=== PATIENT | male | born 1965 | race Caucasian/White ===

== ENCOUNTER 2018-06-11 13:41 | Outpatient (REF) | payer MEDICARE, SELFPAY ==
[2018-06-11 18:30] LABS: HCT 45.6 % (40.0-50.0); HGB 15.5 g/dL (13.5-17.5)
[2018-06-11 18:42] LABS: Hemoglobin A1C 6.7 % (4.5-6.2)
[2018-06-11 19:19] LABS: ALT 16 U/L (12-78); AST 16 U/L (15-37); Albumin 3.7 g/dL (3.4-5.0); Alkaline Phosphatase 62 U/L (46-116); Anion Gap 10.1 mmol/L (3-11); BUN 15 mg/dL (7-18); Bilirubin, Total 0.2 mg/dL (0.2-1.0); CO2 25.9 mmol/L (21.0-32.0); CREATININE 1.01 mg/dL (0.70-1.30); Calcium 9.5 mg/dL (8.5-10.1); Chloride 107 mmol/L (98-107); Cholesterol 148 mg/dL (50-200); Glucose 131 mg/dL (70-100); HDL Cholesterol 40 mg/dL (40-60); LDL CHOLESTEROL 83 mg/dL (<100); Potassium 4.2 mmol/L (3.5-5.1); Sodium 143 mmol/L (136-145); Total Protein 6.9 g/dL (6.4-8.2); Triglyceride 243 mg/dL (30-150)
== END 2018-06-11 14:01 ==
LOC: NCHCN 13:41
PROVIDERS: PCP Family Medicine; Visit Provider Family Medicine
DX: E11.9 Type 2 diabetes mellitus without complications (principal); I25.10 Atherosclerotic heart disease of native coronary artery without angina pectoris; E78.5 Hyperlipidemia, unspecified; I10 Essential (primary) hypertension
CPT/HCPCS: 80053; 80061; 83721; 83036; 85014; 85018

== ENCOUNTER 2018-09-10 16:53 | Outpatient (REF) | payer MEDICARE, SELFPAY ==
[2018-09-10 19:56] LABS: Bacteria Negative HPF (Negative); C & S Indicated? C&S Done As Ordered; Casts Negative LPF (Negative); Crystals Many Amorphous HPF (Negative); Epithelial Cells Negative HPF (Negative); Mucus Negative (Negative); Other Cells Negative (Negative); RBC Negative (0-2); WBC Negative HPF (0-5)
== END 2018-09-10 17:13 ==
LOC: NCHCN 16:53
PROVIDERS: PCP Family Medicine; Visit Provider Family Medicine
DX: R31.9 Hematuria, unspecified (principal)
CPT/HCPCS: 81015; 87086

== ENCOUNTER 2019-03-13 16:22 | Emergency (ER) | payer MEDICARE, MEDICAID, SELFPAY ==
[2019-03-13] VITALS (27 sets, daily range): BP systolic 84–117; BP diastolic 58–74; PULSE 61–83; RESP 8–18; TEMP 36.7–36.8; O2SAT 96–98
[2019-03-13 16:47] LABS: Abs Immature Grans 0.03 k/cumm (0.0-0.09); Absolute Basophil Count 0.05 k/cumm (0.0-0.2); Absolute Eosinophil Count 0.37 k/cumm (0.0-0.7); Absolute Lymphocyte Count 3.75 k/cumm (1.2-3.4); Absolute Monocyte Count 0.66 k/cumm (0.11-0.7); Absolute Neutrophil Count 4.83 k/cumm (1.2-6.7); Basophils % 0.5; Eosinophils % 3.8; HCT 44.2 % (40.0-50.0); HGB 15.7 g/dL (13.5-17.5); Immature Grans % 0.3; Lymphocytes % 38.7; Mean Corp. HGB Concentration 35.5 g/dL (32.0-36.0); Mean Corpuscular Hemoglobin 30.1 pg (27.0-33.0); Mean Corpuscular Volume 84.7 fL (80-95); Mean Platelet Volume 10.5 fL (8.0-11.0); Monocytes % 6.8; Neutrophils % 49.9; Platelet Count 214 x1000/uL (130-400); RBC 5.22 m/cumm (4.50-6.00); RBC Distribution Width 13.1 % (11.8-14.1); White Blood Cell Count 9.69 k/cumm (4.4-10.8)
--- NOTE | 2019-03-13 16:56 | ED.GENADUL_ITS ---
Discharge Plan Disposition Patient Disposition: [facility] Condition: Serious Discharge Details Chief Complaint: Chest Pain Clinical Impression: Unstable angina Primary Care Provider: Coni Lim V ED Provider: Shania Jaeger Home Meds and New Rx's Prescriptions: No Action hydroxyzine pamoate 50 MG capsule 50 mg PO Q4H PRN Qty: 90 RF: 6 prochlorperazine maleate 10 MG tablet 10 mg PO Q8H PRN Qty: 90 RF: 5 topiramate [Topamax] 50 MG tablet 50 mg PO HS Qty: 30 RF: 3 nitroglycerin [Nitrostat] 0.4 MG tablet, sublingual 0.4 mg Sublingual PRN PRNRF: 0 cyclobenzaprine 10 MG tablet 10 mg PO HS RF: 0 metoprolol tartrate 50 MG tablet 100 mg PO BID RF: 0 furosemide [Lasix] 20 MG tablet 20 mg PO DAILY PRNRF: 0 gabapentin 100 MG capsule 600 mg PO TID RF: 0 levalbuterol tartrate [Xopenex HFA] 1 PUFF HFA aerosol inhaler 2 puff Inhalation BID RF: 0 rosuvastatin [Crestor] 10 MG tablet 20 mg PO DAILY RF: 0 bupropion HCl 150 MG tablet extended release 12 hr 150 mg PO BID RF: 0 pantoprazole 40 MG tablet,delayed release (DR/EC) 40 mg PO BID RF: 0 losartan 25 MG tablet 25 mg PO DAILY RF: 0 colchicine 0.6 MG tablet 0.6 mg PO DAILY RF: 0 ranolazine [Ranexa] 500 MG tablet extended release 12 hr 500 mg PO BID Qty: 60 RF: 0 aspirin 325 MG tablet,delayed release (DR/EC) 325 mg PO DAILY RF: 0 duloxetine [Cymbalta] 60 MG capsule,delayed release(DR/EC) 60 mg PO BID RF: 0 hydrocodone-acetaminophen [Vicodin] 1 EACH tablet 1 tab PO BID RF: 0 oxycodone 10 MG tablet 10 mg PO .Q4-6 PRN RF: 0 Discharge Data Discharge Date/Time-TO BE ENTERED AT DEPARTURE: 03/13/19 23:29 Medical Decision Making <LENORE Murry - Last Filed: 03/14/19 23:50> Patient is a 53-year-old male presents today with chief complaint of chest pain. He reports for the past week he has had intermittent chest pain, only with exertion, and associated dyspnea. States that prior to today, the pain is more of a pressure. However, he reports that now he presents with severe crushing chest pain. Indicates his central chest and substernal area of the area of maximal discomfort. States that pain began today with minimal movement, when going to a standing position from the chair. Reports that with his increased dyspnea and his chest discomfort associate with exertion, he is been fairly sedentary recently. States that he had 10 on 10 crushing and stabbing chest pain for which he ended up taking 2 sublingual nitro. He reports that he did have good resolution of his symptoms with this medication. Patient called for EMS who brought him in here. He is currently feeling quite well endorsing only mild chest discomfort. He is not currently feeling short of breath. Patient does have cardiac history and reports he is a total of 5 stents which are completing the different procedures. Most recent of which he believes was completed [facility] approximately 2 years ago. Patient has history of CAD, unstable angina tobacco abuse, TIA, obesity, type 2 diabetes, hypertension, hyperlipide lazara, depression, fibromyalgia, GERD. Patient chewed full dose ASA prior to arrival. The patient's history, I am primarily concerned for ACS. Also plan to obtain EKG, serial troponins, cxr. Patient is noted to be hypotensive at 84/63 likely associate with nitroglycerin, will give fluid bolus and reassess. As he is mentating well and otherwise feeling well at this point, do not feel need to st art pressors. We will continue to monitor the patient closely. EKG reviewed by Dr. Brown with no acute abnormalities to suggest acute ischemic injury. Patient has been in the department for 1 hour, he continues to be hypotensive but the systolic is now up to 97. Discussed the case with Dr. Brown. He continues to receive an IV bolus. His pain continues to be improved from what he experienced initially. I will not give further nitro at this time. We are hesitant to give morphine with his hypertension. I did discuss the use of pressors as the patient is mentating well, does not appear to be in shock, will hold off at this time. Labs are just back and reassuring with no abnormalities in his troponin. 1850: Patient reports that his chest pain has returned. Is not severe as initially noted has been coming back. Will repeat an EKG and give morphine. Again, I remain hesitant to give nitroglycerin secondary to his blood pressure. His blood pressures currently 111/75. Glucose is noted to be 140 which is not atypical for the patient. He has no leukocytosis, no elevation of troponin. anion gap 12.7. EKG was repeated, again no ischemic changes. Patient reports that his pain is a 4 out of 10 and is still only minimal compared to what he was experiencing earlier. We will give 2 mg of morohine. Patient feeling much improved after IV morphine. He is resting comfortably. Plan for 4-hour troponin and 4-hour EKG. Repeat troponin remains normal at <0.05. Remain cnocerned for unstable angina and will consult with [facility] cardiology. Consulted with Dr. Lezama with cardiology. Agrees history concerning for unstable angina. ADvised heparin, plavix and transfer to their facility for cardiac catheterization. Discussed this plan with the patient who is in agreement. <Ortiz Vazquez DO - Last Filed: 03/13/19 20:43> EKG 20: 40 Rate 65, intervals normal, sinus rhythm, no significant ST elevations or depressions, significant T wave inversions. Single small nonspecific questionable Q waves in lead III. Unchanged from prior EKGs. HPI <LENORE Murry - Last Filed: 03/14/19 23:50> General Mode of arrival: ambulatory . Date/Time Provider Initiated Documentation: 03/13/19 16:56 . Limitations to Documentation: no limitations . Information obtained by: patient . History of Present Illness 53 year old M presents to the emergency department with the chief complaint of chest pain, described as severe and similar to prior episodes, with intensity rated at 10. Quality is described as crushing, and is localized to the chest. Patient neck (left side of neck and jaw) and extremity (left shoulder). Patient started experiencing this minute(s) and it has been now resolved (improved after 2 nitro). Medication improves symptom(s), Movement worsens symptoms . Patient notes chest pain and nausea/vomiting (nausea, no vomiting); denies cough, diaphoresis, fever/chills, headaches, loss of appetite, rash, shortness of breath, syncope and weakness. Patient did receive the following treatments prior to arrival, Aspirin and other (2 sublingual nitro) Related Data Home Medications Medication Instructions Recorded Confirmed cyclobenzaprine 10 mg PO HS 12/31/12 03/13/19 furosemide [Lasix] 20 mg PO DAILY PRN 12/31/12 03/13/19 gabapentin 600 mg PO TID 12/31/12 03/13/19 levalbuterol tartrate [Xopenex HFA] 2 puff INHALATION BID 12/31/12 03/13/19 metoprolol tartrate 100 mg PO BID 12/31/12 03/13/19 nitroglycerin [Nitrostat] 0.4 mg SUBLINGUAL PRN PRN 12/31/12 03/13/19 rosuvastatin [Crestor] 20 mg PO DAILY 12/31/12 03/13/19 bupropion HCl 150 mg PO BID 02/14/14 03/13/19 pantoprazole 40 mg PO BID 02/14/14 03/13/19 losartan 25 mg PO DAILY 02/21/14 03/13/19 colchicine 0.6 mg PO DAILY 10/05/14 03/13/19 ranolazine [Ranexa] 500 mg PO BID #60 tab.er.12h 10/06/14 03/13/19 aspirin 325 mg PO DAILY 11/27/14 03/13/19 hydroxyzine pamoate 50 mg PO Q4H PRN #90 tab-cap 03/21/15 03/13/19 prochlorperazine maleate 10 mg PO Q8H PRN #90 tab-cap 03/21/15 03/13/19 topiramate [Topamax] 50 mg PO HS #30 tab 03/21/15 03/13/19 duloxetine [Cymbalta] 60 mg PO BID 08/16/15 03/13/19 hydrocodone-acetaminophen [Vicodin 1 tab PO BID 08/16/15 03/13/19 5-300 mg Tablet] oxycodone 10 mg PO .Q4-6 PRN 08/16/15 03/13/19 Previous Rx's Medication Instructions Recorded ranolazine [Ranexa] 500 mg PO BID #60 tab.er.12h 10/06/14 Allergies Allergy/AdvReac Type Severity Reaction Status Date / Time thallium-201 [Thallium-201] Allergy Severe Pt went to Unverified 03/13/19 16:31 [facility] due to med lisinopril AdvReac cough Unverified 03/13/19 16:31 Paper tape Allergy Intermediate rash Uncoded 03/13/19 16:31 General Stated Complaint: Chest Pain NANCY: 3 Review of Systems <LENORE Murry - Last Filed: 03/14/19 23:50> Constitutional Reports as per HPI, Denies chills, Denies fever(s), Denies headache(s), Denies lethargy and Denies poor appetite Eyes Denies change in vision ENT Denies dizziness and Denies headache(s) Cardiovascular Reports as per HPI, Denies dyspnea and Denies dyspnea on exertion Respiratory Reports as per HPI, Denies chest congestion, Denies cough, Denies pain on inspiration, Denies pain with cough, Denies dyspnea, Denies dyspnea on exertion and Denies wheezing Gastrointestinal Reports as per HPI, Denies abdominal pain, Denies diarrhea, Denies nausea and Denies vomiting Genitourinary Denies system reviewed and no additional complaints, except as docu (denies change in urinary habits) Musculoskeletal Reports as per HPI and Denies back pain Integumentary/Breasts Reports as per HPI and Denies rash Neurologic Reports as per HPI, Denies dizziness and Denies headache(s) Allergic/Immunologic Denies wheezing PFSH <LENORE Murry - Last Filed: 03/14/19 23:50> Medical History Coronary artery disease (Chronic) Depression (Chronic) Diabetes (Chronic) Social History Smoking/Tobacco Use Status: Current every day Alcohol Intake: never Drug use: Daily Substance use type: marijuana Do you feel safe at home: Yes Do you feel safe in your relationship?: Yes Exam <LENORE Murry - Last Filed: 03/14/19 23:50> Const General: cooperative, healthy appearing, comfortable, no acute distress and well developed Nutritional Appearance: average body habitus and well nourished Orientation: alert, awake and oriented x3 HENMT Head: normal to inspection Ears: hearing grossly normal bilaterally Mouth: moist mucous membranes Chest Chest: normal inspection of the chest, normal palpation of entire chest wall and no crepitus Resp Effort & Inspection: normal respiratory effort, able to speak in complete sentences and no respiratory distress Auscultation: clear to auscultation bilaterally, no rales, no rhonchi and no wheezes Cardio Rate: regular rate Rhythm: regular rhythm Heart Sounds: S1 normal and S2 normal GI Inspection: normal to inspection, no edema and non-distended Palpation: soft, no hepatosplenomegaly, not firm, no guarding, not rigid and nontender Auscultation: normal bowel sounds Back/Spine/Pelvis Thoracic/Lumbar Spine: thoracic and lumbar spine normal to inspection Skin General skin exam: no rashes or lesions noted Trauma: no lacerations or abrasions Neuro General: alert, awake and oriented x3 Cognition: normal cognition Speech: speech normal Gait: normal gait Extrem General: normal to inspection, normal capillary refill, no pedal edema, no calf tenderness, normal gait and other (2+ distal pulses in upper and lower extre mities, equal bilaterally. ) Psych Appearance: grossly normal and well kempt Mental Status: mental status grossly normal Speech and Movement: speech and movement normal Course <LENORE Murry - Last Filed: 03/14/19 23:50> Vital Signs Temperature 36.8 C 03/13/19 16:26 Pulse 80 03/13/19 16:26 Respiratory Rate 16 03/13/19 16:26 Blood Pressure 84/63 L 03/13/19 16:26 Pulse Oximetry 98 03/13/19 16:26 Temperature 36.8 C 03/13/19 16:26 Temperature Source Skin 03/13/19 16:26 Pulse 80 03/13/19 16:26 Respiratory Rate 16 03/13/19 16:35 Respiratory Effort Non-Labored 03/13/19 16:35 Blood Pressure 84/63 L 03/13/19 16:26 Pulse Oximetry 98 03/13/19 16:26 Pain Level 4 03/13/19 16:35 Lab/Test Results Lab/Test Results: Laboratory Tests Range/Units 03/13/19 16:30 WBC (4.4-10.8) k/cumm 9.69 RBC (4.50-6.00) m/cumm 5.22 Hgb (13.5-17.5) g/dL 15.7 Hct (40.0-50.0) % 44.2 MCV (80-95) fL 84.7 MCH (27.0-33.0) pg 30.1 MCHC (32.0-36.0) g/dL 35.5 RDW (11.8-14.1) % 13.1 Plt Count (130-400) x1000/uL 214 MPV (8.0-11.0) fL 10.5 Immature Gran % 0.3 Neutrophils % 49.9 Lymphocytes % 38.7 Monocytes % 6.8 Eosinophils % 3.8 Basophils % 0.5 Absolute Neutrophils (1.2-6.7) k/cumm 4.83 Absolute Lymphocytes (1.2-3.4) k/cumm 3.75 H Absolute Monocytes (0.11-0.7) k/cumm 0.66 Absolute Eosinophils (0.0-0.7) k/cumm 0.37 Absolute Basophils (0.0-0.2) k/cumm 0.05
[2019-03-13 17:06] LABS: ALT 16 U/L (12-78); AST 6 U/L (15-37); Albumin 3.3 g/dL (3.4-5.0); Alkaline Phosphatase 62 U/L (46-116); Anion Gap 12.7 mmol/L (3-11); BUN 12 mg/dL (7-18); Bilirubin, Total 0.2 mg/dL (0.2-1.0); CO2 21.3 mmol/L (21.0-32.0); CREATININE 1.03 mg/dL (0.70-1.30); Calcium 8.6 mg/dL (8.5-10.1); Chloride 105 mmol/L (98-107); Glucose 140 mg/dL (70-100); Magnesium 1.9 mg/dL (1.8-2.4); Potassium 3.5 mmol/L (3.5-5.1); Sodium 139 mmol/L (136-145); Total Protein 6.4 g/dL (6.4-8.2)
[2019-03-13 17:07] LABS: Troponin I < 0.05 ng/mL (0.00-0.06)
[2019-03-13 17:09] LABS: Prothrombin Time 9.9 sec (9.3-11.0)
[2019-03-13 18:33] LABS: Bilirubin Negative (Negative); Blood Negative (Negative); Clarity Clear (Clear); Glucose Negative (Negative); Ketones Negative (Negative); Leukocyte Esterase Negative (Negative); Nitrite Negative (Negative); Urobilinogen 0.2 EU/dL (Up TO 0.2)
--- NOTE | 2019-03-13 18:42 | ED.GENADUL_ITS ---
Discharge Plan Discharge Details Chief Complaint: Chest Pain Primary Care Provider: Coni Lim V ED Provider: Shania Jaeger Home Meds and New Rx's Prescriptions: No Action hydroxyzine pamoate 50 MG capsule 50 mg PO Q4H PRN Qty: 90 RF: 6 prochlorperazine maleate 10 MG tablet 10 mg PO Q8H PRN Qty: 90 RF: 5 topiramate [Topamax] 50 MG tablet 50 mg PO HS Qty: 30 RF: 3 nitroglycerin [Nitrostat] 0.4 MG tablet, sublingual 0.4 mg Sublingual PRN PRNRF: 0 cyclobenzaprine 10 MG tablet 10 mg PO HS RF: 0 metoprolol tartrate 50 MG tablet 100 mg PO BID RF: 0 furosemide [Lasix] 20 MG tablet 20 mg PO DAILY PRNRF: 0 gabapentin 100 MG capsule 600 mg PO TID RF: 0 levalbuterol tartrate [Xopenex HFA] 1 PUFF HFA aerosol inhaler 2 puff Inhalation BID RF: 0 rosuvastatin [Crestor] 10 MG tablet 20 mg PO DAILY RF: 0 bupropion HCl 150 MG tablet extended release 12 hr 150 mg PO BID RF: 0 pantoprazole 40 MG tablet,delayed release (DR/EC) 40 mg PO BID RF: 0 losartan 25 MG tablet 25 mg PO DAILY RF: 0 colchicine 0.6 MG tablet 0.6 mg PO DAILY RF: 0 ranolazine [Ranexa] 500 MG tablet extended release 12 hr 500 mg PO BID Qty: 60 RF: 0 aspirin 325 MG tablet,delayed release (DR/EC) 325 mg PO DAILY RF: 0 duloxetine [Cymbalta] 60 MG capsule,delayed release(DR/EC) 60 mg PO BID RF: 0 hydrocodone-acetaminophen [Vicodin] 1 EACH tablet 1 tab PO BID RF: 0 oxycodone 10 MG tablet 10 mg PO .Q4-6 PRN RF: 0 Medical Decision Making ECG Data Attestation: I personally reviewed and interpreted this ECG (s) as follows: (Sinus rhythm rate of 77 normal axis normal intervals no ectopy no STEMI) HPI General Mode of arrival: ambulatory . Date/Time Provider Initiated Documentation: 03/13/19 16:56 . Limitations to Documentation: no limitations . Information obtained by: patient . History of Present Illness with intensity rated at 10. Quality is described as crushing, and is localized to the chest. Medication improves symptom(s), Movement worsens symptoms . Patient notes chest pain and nausea/vomiting (nausea, no vomiting); denies cough, diaphoresis, fever/chills, headaches, loss of appetite, rash, shortness of breath, syncope and weakness. Patient did receive the following treatments prior to arrival, Aspirin and other (2 sublingual nitro) Related Data Home Medications Medication Instructions Recorded Confirmed cyclobenzaprine 10 mg PO HS 12/31/12 03/13/19 furosemide [Lasix] 20 mg PO DAILY PRN 12/31/12 03/13/19 gabapentin 600 mg PO TID 12/31/12 03/13/19 levalbuterol tartrate [Xopenex HFA] 2 puff INHALATION BID 12/31/12 03/13/19 metoprolol tartrate 100 mg PO BID 12/31/12 03/13/19 nitroglycerin [Nitrostat] 0.4 mg SUBLINGUAL PRN PRN 12/31/12 03/13/19 rosuvastatin [Crestor] 20 mg PO DAILY 12/31/12 03/13/19 bupropion HCl 150 mg PO BID 02/14/14 03/13/19 pantoprazole 40 mg PO BID 02/14/14 03/13/19 losartan 25 mg PO DAILY 02/21/14 03/13/19 colchicine 0.6 mg PO DAILY 10/05/14 03/13/19 ranolazine [Ranexa] 500 mg PO BID #60 tab.er.12h 10/06/14 03/13/19 aspirin 325 mg PO DAILY 11/27/14 03/13/19 hydroxyzine pamoate 50 mg PO Q4H PRN #90 tab-cap 03/21/15 03/13/19 prochlorperazine maleate 10 mg PO Q8H PRN #90 tab-cap 03/21/15 03/13/19 topiramate [Topamax] 50 mg PO HS #30 tab 03/21/15 03/13/19 duloxetine [Cymbalta] 60 mg PO BID 08/16/15 03/13/19 hydrocodone-acetaminophen [Vicodin 1 tab PO BID 08/16/15 03/13/19 5-300 mg Tablet] oxycodone 10 mg PO .Q4-6 PRN 08/16/15 03/13/19 Previous Rx's Medication Instructions Recorded ranolazine [Ranexa] 500 mg PO BID #60 tab.er.12h 10/06/14 Allergies Allergy/AdvReac Type Severity Reaction Status Date / Time thallium-201 [Thallium-201] Allergy Severe Pt went to Unverified 03/13/19 16:31 [facility] due to med lisinopril AdvReac cough Unverified 03/13/19 16:31 Paper tape Allergy Intermediate rash Uncoded 03/13/19 16:31 General Stated Complaint: Chest Pain NANCY: 3 PFS Medical History (Updated 03/13/19 @ 16:31 by Coni Jalloh) Coronary artery disease (Chronic) Depression (Chronic) Diabetes (Chronic) Social History Smoking/Tobacco Use Status: Current every day Alcohol Intake: never Drug use: Daily Substance use type: marijuana Do you feel safe at home: Yes Do you feel safe in your relationship?: Yes Course Vital Signs Respiratory Rate 18 03/13/19 16:17 Pulse Oximetry 98 03/13/19 16:17 Temperature 36.8 C 03/13/19 16:26 Temperature Source Skin 03/13/19 16:26 Pulse 62 03/13/19 18:01 Pulse 62 03/13/19 18:10 Respiratory Rate 11 L 03/13/19 18:10 Respiratory Effort Non-Labored 03/13/19 16:35 Blood Pressure 97/64 L 03/13/19 18:01 Blood Pressure Mean 72 03/13/19 18:01 Pulse Oximetry 98 03/13/19 18:10 Pain Level 4 03/13/19 16:35 Lab/Test Results Lab/Test Results: Laboratory Tests Range/Units 03/13/19 03/13/19 03/13/19 16:30 16:30 16:30 WBC (4.4-10.8) k/cumm 9.69 RBC (4.50-6.00) m/cumm 5.22 Hgb (13.5-17.5) g/dL 15.7 Hct (40.0-50.0) % 44.2 MCV (80-95) fL 84.7 MCH (27.0-33.0) pg 30.1 MCHC (32.0-36.0) g/dL 35.5 RDW (11.8-14.1) % 13.1 Plt Count (130-400) x1000/uL 214 MPV (8.0-11.0) fL 10.5 Immature Gran % 0.3 Neutrophils % 49.9 Lymphocytes % 38.7 Monocytes % 6.8 Eosinophils % 3.8 Basophils % 0.5 Absolute Neutrophils (1.2-6.7) k/cumm 4.83 Absolute Lymphocytes (1.2-3.4) k/cumm 3.75 H Absolute Monocytes (0.11-0.7) k/cumm 0.66 Absolute Eosinophils (0.0-0.7) k/cumm 0.37 Absolute Basophils (0.0-0.2) k/cumm 0.05 PT (9.3-11.0) sec 9.9 INR (0.9-1.1) 1.0 Sodium (136-145) mmol/L 139 Potassium (3.5-5.1) mmol/L 3.5 Chloride (98-107) mmol/L 105 Carbon Dioxide (21.0-32.0) mmol/L 21.3 Anion Gap (3-11) mmol/L 12.7 H BUN (7-18) mg/dL 12 Creatinine (0.70-1.30) mg/dL 1.03 Estimated GFR/1.73 m2 (mL/min/1.73m2) >= 60.00 Glucose (70-100) mg/dL 140 H Calcium (8.5-10.1) mg/dL 8.6 Magnesium (1.8-2.4) mg/dL 1.9 Total Bilirubin (0.2-1.0) mg/dL 0.2 AST (15-37) U/L 6 L ALT (12-78) U/L 16 Alkaline Phosphatase (46-116) U/L 62 Troponin I (0.00-0.06) ng/mL < 0.05 Total Protein (6.4-8.2) g/dL 6.4 Albumin (3.4-5.0) g/dL 3.3 L Urine Color (Yellow) Urine Clarity (Clear) Urine pH (5-8) Ur Specific Mobile (1.005-1.025) Urine Protein (Negative) mg/dL Urine Ketones (Negative) mg/dL Urine Blood (Negative) Urine Nitrite (Negative) Urine Bilirubin (Negative) Urine Urobilinogen (Up TO 0.2) EU/dL Ur Leukocyte Esterase (Negative) Urine Glucose (Negative) mg/dL Range/Units 03/13/19 18:24 WBC (4.4-10.8) k/cumm RBC (4.50-6.00) m/cumm Hgb (13.5-17.5) g/dL Hct (40.0-50.0) % MCV (80-95) fL MCH (27.0-33.0) pg MCHC (32.0-36.0) g/dL RDW (11.8-14.1) % Plt Count (130-400) x1000/uL MPV (8.0-11.0) fL Immature Gran % Neutrophils % Lymphocytes % Monocytes % Eosinophils % Basophils % Absolute Neutrophils (1.2-6.7) k/cumm Absolute Lymphocytes (1.2-3.4) k/cumm Absolute Monocytes (0.11-0.7) k/cumm Absolute Eosinophils (0.0-0.7) k/cumm Absolute Basophils (0.0-0.2) k/cumm PT (9.3-11.0) sec INR (0.9-1.1) Sodium (136-145) mmol/L Potassium (3.5-5.1) mmol/L Chloride (98-107) mmol/L Carbon Dioxide (21.0-32.0) mmol/L Anion Gap (3-11) mmol/L BUN (7-18) mg/dL Creatinine (0.70-1.30) mg/dL Estimated GFR/1.73 m2 (mL/min/1.73m2) Glucose (70-100) mg/dL Calcium (8.5-10.1) mg/dL Magnesium (1.8-2.4) mg/dL Total Bilirubin (0.2-1.0) mg/dL AST (15-37) U/L ALT (12-78) U/L Alkaline Phosphatase (46-116) U/L Troponin I (0.00-0.06) ng/mL Total Protein (6.4-8.2) g/dL Albumin (3.4-5.0) g/dL Urine Color (Yellow) Yellow Urine Clarity (Clear) Clear Urine pH (5-8) 7.0 Ur Specific Mobile (1.005-1.025) 1.010 Urine Protein (Negative) mg/dL Negative Urine Ketones (Negative) mg/dL Negative Urine Blood (Negative) Negative Urine Nitrite (Negative) Negative Urine Bilirubin (Negative) Negative Urine Urobilinogen (Up TO 0.2) EU/dL 0.2 Ur Leukocyte Esterase (Negative) Negative Urine Glucose (Negative) mg/dL Negative
[2019-03-13 21:03] LABS: Troponin I < 0.05 ng/mL (0.00-0.06)
--- NOTE | 2019-03-13 22:26 | W.ED.GENAD ---
Discharge Plan Disposition Patient Disposition: [facility] Condition: Serious Discharge Details Chief Complaint: Chest Pain Clinical Impression: Unstable angina Primary Care Provider: Coni Lim V ED Provider: Shania Jaeger Home Meds and New Rx's Prescriptions: No Action hydroxyzine pamoate 50 MG capsule 50 mg PO Q4H PRN Qty: 90 RF: 6 prochlorperazine maleate 10 MG tablet 10 mg PO Q8H PRN Qty: 90 RF: 5 topiramate [Topamax] 50 MG tablet 50 mg PO HS Qty: 30 RF: 3 nitroglycerin [Nitrostat] 0.4 MG tablet, sublingual 0.4 mg Sublingual PRN PRNRF: 0 cyclobenzaprine 10 MG tablet 10 mg PO HS RF: 0 metoprolol tartrate 50 MG tablet 100 mg PO BID RF: 0 furosemide [Lasix] 20 MG tablet 20 mg PO DAILY PRNRF: 0 gabapentin 100 MG capsule 600 mg PO TID RF: 0 levalbuterol tartrate [Xopenex HFA] 1 PUFF HFA aerosol inhaler 2 puff Inhalation BID RF: 0 rosuvastatin [Crestor] 10 MG tablet 20 mg PO DAILY RF: 0 bupropion HCl 150 MG tablet extended release 12 hr 150 mg PO BID RF: 0 pantoprazole 40 MG tablet,delayed release (DR/EC) 40 mg PO BID RF: 0 losartan 25 MG tablet 25 mg PO DAILY RF: 0 colchicine 0.6 MG tablet 0.6 mg PO DAILY RF: 0 ranolazine [Ranexa] 500 MG tablet extended release 12 hr 500 mg PO BID Qty: 60 RF: 0 aspirin 325 MG tablet,delayed release (DR/EC) 325 mg PO DAILY RF: 0 duloxetine [Cymbalta] 60 MG capsule,delayed release(DR/EC) 60 mg PO BID RF: 0 hydrocodone-acetaminophen [Vicodin] 1 EACH tablet 1 tab PO BID RF: 0 oxycodone 10 MG tablet 10 mg PO .Q4-6 PRN RF: 0 Discharge Data Discharge Date/Time-TO BE ENTERED AT DEPARTURE: 03/13/19 23:29 HPI General Mode of arrival: ambulatory. Date/Time Provider Initiated Documentation: 03/13/19 16:56. Limitations to Documentation: no limitations. Information obtained by: patient. History of Present Illness with intensity rated at 10. Quality is described as crushing, and is localized to the chest. Medication improves symptom(s), Movement worsens symptoms . Patient notes chest pain and nausea/vomiting (nausea, no vomiting); denies cough, diaphoresis, fever/chills, headaches, loss of appetite, rash, shortness of breath, syncope and weakness. Patient did receive the following treatments prior to arrival, Aspirin and other (2 sublingual nitro) Related Data Home Medications Medication Instructions Recorded Confirmed cyclobenzaprine 10 mg PO HS 12/31/12 03/13/19 furosemide [Lasix] 20 mg PO DAILY PRN 12/31/12 03/13/19 gabapentin 600 mg PO TID 12/31/12 03/13/19 levalbuterol tartrate [Xopenex HFA] 2 puff INHALATION BID 12/31/12 03/13/19 metoprolol tartrate 100 mg PO BID 12/31/12 03/13/19 nitroglycerin [Nitrostat] 0.4 mg SUBLINGUAL PRN PRN 12/31/12 03/13/19 rosuvastatin [Crestor] 20 mg PO DAILY 12/31/12 03/13/19 bupropion HCl 150 mg PO BID 02/14/14 03/13/19 pantoprazole 40 mg PO BID 02/14/14 03/13/19 losartan 25 mg PO DAILY 02/21/14 03/13/19 colchicine 0.6 mg PO DAILY 10/05/14 03/13/19 ranolazine [Ranexa] 500 mg PO BID #60 tab.er.12h 10/06/14 03/13/19 aspirin 325 mg PO DAILY 11/27/14 03/13/19 hydroxyzine pamoate 50 mg PO Q4H PRN #90 tab-cap 03/21/15 03/13/19 prochlorperazine maleate 10 mg PO Q8H PRN #90 tab-cap 03/21/15 03/13/19 topiramate [Topamax] 50 mg PO HS #30 tab 03/21/15 03/13/19 duloxetine [Cymbalta] 60 mg PO BID 08/16/15 03/13/19 hydrocodone-acetaminophen [Vicodin 1 tab PO BID 08/16/15 03/13/19 5-300 mg Tablet] oxycodone 10 mg PO .Q4-6 PRN 08/16/15 03/13/19 Previous Rx's Medication Instructions Recorded ranolazine [Ranexa] 500 mg PO BID #60 tab.er.12h 10/06/14 Allergies Allergy/AdvReac Type Severity Reaction Status Date / Time thallium-201 [Thallium-201] Allergy Severe Pt went to Unverified 03/13/19 16:31 [facility] [place] to med lisinopril AdvReac cough Unverified 03/13/19 16:31 Paper tape Allergy Intermediate rash Uncoded 03/13/19 16:31 General Stated Complaint: Chest Pain NANCY: 3 Review of Systems Constitutional Reports as per HPI, Denies chills, Denies fever(s), Denies headache(s), Denies lethargy and Denies poor appetite Eyes Denies change in vision ENT Denies dizziness and Denies headache(s) Cardiovascular Reports as per HPI, Reports chest pain, Reports chest pain with activity, Denies rapid heart rate, Denies pedal edema, Denies leg edema, Reports lightheadedness, Reports radiating jaw, neck or arm pain, Denies palpitations, Denies dyspnea and Reports dyspnea on exertion Respiratory Reports as per HPI, Denies chest congestion, Denies cough, Denies pain on inspiration, Denies pain with cough, Denies dyspnea, Reports dyspnea on exertion and Denies wheezing Gastrointestinal Reports as per HPI, Denies abdominal pain, Denies diarrhea, Denies nausea and Denies vomiting Genitourinary Denies system reviewed and no additional complaints, except as docu (denies change in urinary habits) Musculoskeletal Reports as per HPI and Denies back pain Integumentary/Breasts Reports as per HPI and Denies rash Neurologic Reports as per HPI, Denies dizziness and Denies headache(s) Endocrine Denies palpitations Allergic/Immunologic Denies wheezing [facility] Medical History Coronary artery disease (Chronic) Depression (Chronic) Diabetes (Chronic) Social History Smoking/Tobacco Use Status: Current every day Alcohol Intake: never Drug use: Daily Substance use type: marijuana Do you feel safe at home: Yes Do you feel safe in your relationship?: Yes Exam Const General: cooperative, healthy appearing, comfortable, no acute distress and well developed Nutritional Appearance: average body habitus and well nourished Orientation: alert, awake and oriented x3 [facility] Head: normal to inspection Ears: hearing grossly normal bilaterally Mouth: moist mucous membranes Chest Chest: normal inspection of the chest, normal palpation of entire chest wall and no crepitus Resp Effort & Inspection: normal respiratory effort, able to speak in complete sentences and no respiratory distress Auscultation: clear to auscultation bilaterally, no rales, no rhonchi and no wheezes Cardio Rate: regular rate Rhythm: regular rhythm Heart Sounds: S1 normal and S2 normal GI Inspection: normal to inspection, no edema and non-distended Palpation: soft, no hepatosplenomegaly, not firm, no guarding, not rigid and nontender Auscultation: normal bowel sounds Back/Spine/Pelvis Back: no CVA tenderness Thoracic/Lumbar Spine: thoracic and lumbar spine normal to inspection Skin General skin exam: no rashes or lesions noted Trauma: no lacerations or abrasions Neuro General: alert, awake and oriented x3 Cognition: normal cognition Speech: speech normal Gait: normal gait Extrem General: normal to inspection, normal capillary refill, no pedal edema, no calf tenderness and normal gait Psych Appearance: grossly normal and well kempt Mental Status: mental status grossly normal Speech and Movement: speech and movement normal Course Vital Signs Respiratory Rate 18 03/13/19 16:17 Pulse Oximetry 98 03/13/19 16:17 Temperature 36.8 C 03/13/19 16:26 Temperature Source Skin 03/13/19 16:26 Pulse 62 03/13/19 18:01 Pulse 62 03/13/19 18:10 Respiratory Rate 11 L 03/13/19 18:10 Respiratory Effort Non-Labored 03/13/19 16:35 Blood Pressure 97/64 L 03/13/19 18:01 Blood Pressure Mean 72 03/13/19 18:01 Pulse Oximetry 98 03/13/19 18:10 Pain Level 4 03/13/19 16:35 Lab/Test Results Lab/Test Results: Laboratory Tests Range/Units 03/13/19 03/13/19 03/13/19 16:30 16:30 16:30 WBC (4.4-10.8) k/cumm 9.69 RBC (4.50-6.00) m/cumm 5.22 Hgb (13.5-17.5) g/dL 15.7 Hct (40.0-50.0) % 44.2 MCV (80-95) fL 84.7 MCH (27.0-33.0) pg 30.1 MCHC (32.0-36.0) g/dL 35.5 RDW (11.8-14.1) % 13.1 Plt Count (130-400) x1000/uL 214 MPV (8.0-11.0) fL 10.5 Immature Gran % 0.3 Neutrophils % 49.9 Lymphocytes % 38.7 Monocytes % 6.8 Eosinophils % 3.8 Basophils % 0.5 Absolute Neutrophils (1.2-6.7) k/cumm 4.83 Absolute Lymphocytes (1.2-3.4) k/cumm 3.75 H Absolute Monocytes (0.11-0.7) k/cumm 0.66 Absolute Eosinophils (0.0-0.7) k/cumm 0.37 Absolute Basophils (0.0-0.2) k/cumm 0.05 PT (9.3-11.0) sec 9.9 INR (0.9-1.1) 1.0 Sodium (136-145) mmol/L 139 Potassium (3.5-5.1) mmol/L 3.5 Chloride (98-107) mmol/L 105 Carbon Dioxide (21.0-32.0) mmol/L 21.3 Anion Gap (3-11) mmol/L 12.7 H BUN (7-18) mg/dL 12 Creatinine (0.70-1.30) mg/dL 1.03 Estimated GFR/1.73 m2 (mL/min/1.73m2) >= 60.00 Glucose (70-100) mg/dL 140 H Calcium (8.5-10.1) mg/dL 8.6 Magnesium (1.8-2.4) mg/dL 1.9 Total Bilirubin (0.2-1.0) mg/dL 0.2 AST (15-37) U/L 6 L ALT (12-78) U/L 16 Alkaline Phosphatase (46-116) U/L 62 Troponin I (0.00-0.06) ng/mL < 0.05 Total Protein (6.4-8.2) g/dL 6.4 Albumin (3.4-5.0) g/dL 3.3 L Urine Color (Yellow) Urine Clarity (Clear) Urine pH (5-8) Ur Specific [place] (1.005-1.025) Urine Protein (Negative) mg/dL Urine Ketones (Negative) mg/dL Urine Blood (Negative) Urine Nitrite (Negative) Urine Bilirubin (Negative) Urine Urobilinogen (Up TO 0.2) EU/dL Ur Leukocyte Esterase (Negative) Urine Glucose (Negative) mg/dL Range/Units 03/13/19 03/13/19 18:24 20:25 WBC (4.4-10.8) k/cumm RBC (4.50-6.00) m/cumm Hgb (13.5-17.5) g/dL Hct (40.0-50.0) % MCV (80-95) fL MCH (27.0-33.0) pg MCHC (32.0-36.0) g/dL RDW (11.8-14.1) % Plt Count (130-400) x1000/uL MPV (8.0-11.0) fL Immature Gran % Neutrophils % Lymphocytes % Monocytes % Eosinophils % Basophils % Absolute Neutrophils (1.2-6.7) k/cumm Absolute Lymphocytes (1.2-3.4) k/cumm Absolute Monocytes (0.11-0.7) k/cumm Absolute Eosinophils (0.0-0.7) k/cumm Absolute Basophils (0.0-0.2) k/cumm PT (9.3-11.0) sec INR (0.9-1.1) Sodium (136-145) mmol/L Potassium (3.5-5.1) mmol/L Chloride (98-107) mmol/L Carbon Dioxide (21.0-32.0) mmol/L Anion Gap (3-11) mmol/L BUN (7-18) mg/dL Creatinine (0.70-1.30) mg/dL Estimated GFR/1.73 m2 (mL/min/1.73m2) Glucose (70-100) mg/dL Calcium (8.5-10.1) mg/dL Magnesium (1.8-2.4) mg/dL Total Bilirubin (0.2-1.0) mg/dL AST (15-37) U/L ALT (12-78) U/L Alkaline Phosphatase (46-116) U/L Troponin I (0.00-0.06) ng/mL < 0.05 Total Protein (6.4-8.2) g/dL Albumin (3.4-5.0) g/dL Urine Color (Yellow) Yellow Urine Clarity (Clear) Clear Urine pH (5-8) 7.0 Ur Specific [place] (1.005-1.025) 1.010 Urine Protein (Negative) mg/dL Negative Urine Ketones (Negative) mg/dL Negative Urine Blood (Negative) Negative Urine Nitrite (Negative) Negative Urine Bilirubin (Negative) Negative Urine Urobilinogen (Up TO 0.2) EU/dL 0.2 Ur Leukocyte Esterase (Negative) Negative Urine Glucose (Negative) mg/dL Negative
--- NOTE | 2019-03-13 22:37 | DI.RAD_ITS ---
SYMPTOMS/DIAGNOSIS: CHEST PAIN CHEST X-RAY, PA AND LATERAL: Comparison is 08/16/15. The heart size and pulmonary vasculature are within normal limits. The peribronchial soft tissues are unchanged compared to 08/16/15. No focal consolidating infiltrates, effusions or pneumothoraces are identified. The bones appear stable. IMPRESSION: No change in appearance of the chest since 08/16/15. No acute pulmonary process.
[2019-03-13] MEDS: Clopidogrel 300 MG TAB PO (23:20)
--- NOTE | 2019-03-13 23:53 | DI.VRAD_ITS ---
EXAM: XR Chest, 2 Views EXAM DATE/TIME: 03/13/2019 10:38 PM CLINICAL HISTORY: 53 years old, male; Chest pain; Type not specified; Prior surgery; Surgery date: 6+ months; Surgery type: Heart surgery TECHNIQUE: Imaging protocol: XR of the chest, 2 views. COMPARISON: CR CHEST 2 VIEWS PA,LAT 08/16/2015 5:32 PM FINDINGS: Lungs: Mild peribronchial thickening and perihilar stranding suggesting possible bronchitis. No infiltrates. Pulmonary vaculature normal. Pleural space: No pleural effusion. No pneumothorax. Heart/Mediastinum: Heart size normal. Vasculature: Mild aortic ectasia. Bones/joints: No acute osseous abnormalities are identified. Other findings: No tracheal shift. IMPRESSION: Question mild peribronchial thickening and perihilar stranding suggesting possible bronchitis. No gross pulmonary infiltrates. Dictated and Authenticated by: Juan Ashton MD. Ordering:LUPE Jauregui MD
== END 2019-03-13 23:29 | disposition short-term general hospital (02) ==
LOC: ER 17:36
PROVIDERS: Emergency Provider Physician Assistant; PCP Family Medicine
DX: I25.110 Atherosclerotic heart disease of native coronary artery with unstable angina pectoris; I10 Essential (primary) hypertension; E11.9 Type 2 diabetes mellitus without complications; Z95.5 Presence of coronary angioplasty implant and graft
CPT/HCPCS: 36415; 80053; 93005; 96365; 96375; 99285; 71046; 81003; 83735; 84484; 85025; 85610; 93010

== ENCOUNTER 2019-09-16 09:05 | Emergency (ER) | payer MEDICARE, MEDICAID, SELFPAY ==
[2019-09-16 09:17] VITALS: BP 124/70; PULSE 98; RESP 20; TEMP 36.7; O2SAT 95
--- NOTE | 2019-09-16 09:39 | ED.GENADUL_ITS ---
Discharge Plan Disposition Patient Disposition: HOME Condition: Stable Discharge Details Chief Complaint: Abd Prob Clinical Impression: Abdominal pain Primary Care Provider: Coni Lim V ED Provider: Keo Aparicio Home Meds and New Rx's Prescriptions: No Action hydroxyzine pamoate 50 MG capsule 50 mg PO Q4H PRN Qty: 90 RF: 6 prochlorperazine maleate 10 MG tablet 10 mg PO Q8H PRN Qty: 90 RF: 5 topiramate [Topamax] 50 MG tablet 50 mg PO HS Qty: 30 RF: 3 nitroglycerin [Nitrostat] 0.4 MG tablet, sublingual 0.4 mg Sublingual PRN PRNRF: 0 cyclobenzaprine 10 MG tablet 10 mg PO HS RF: 0 metoprolol tartrate 50 MG tablet 100 mg PO BID RF: 0 furosemide [Lasix] 20 MG tablet 20 mg PO DAILY PRNRF: 0 gabapentin 100 MG capsule 600 mg PO TID RF: 0 levalbuterol tartrate [Xopenex HFA] 1 PUFF HFA aerosol inhaler 2 puff Inhalation BID RF: 0 rosuvastatin [Crestor] 10 MG tablet 20 mg PO DAILY RF: 0 bupropion HCl 150 MG tablet extended release 12 hr 150 mg PO BID RF: 0 pantoprazole 40 MG tablet,delayed release (DR/EC) 40 mg PO BID RF: 0 losartan 25 MG tablet 25 mg PO DAILY RF: 0 colchicine 0.6 MG tablet 0.6 mg PO DAILY RF: 0 ranolazine [Ranexa] 500 MG tablet extended release 12 hr 500 mg PO BID Qty: 60 RF: 0 aspirin 325 MG tablet,delayed release (DR/EC) 325 mg PO DAILY RF: 0 duloxetine [Cymbalta] 60 MG capsule,delayed release(DR/EC) 60 mg PO BID RF: 0 hydrocodone-acetaminophen [Vicodin] 1 EACH tablet 1 tab PO BID RF: 0 oxycodone 10 MG tablet 10 mg PO .Q4-6 PRN RF: 0 Discharge Instructions Instructions: Abdominal Pain (ED) Additional Instructions: 1. Drink plenty of fluids. 2. Continue all medications as prescribed. 3. Acetaminophen 1000mg every 4 hours (up to 5 time a day) and/or ibuprofen 600mg every 6 hours as needed for fever or pain. 4. Activity as tolerated. Return to the Emergency Department (ED) if your condition worsens, does not improve as expected, or for ANY other concerns. Specifically, return if you have new or uncontrolled pain, worsening fever, difficulty breathing, vomiting, or are unable to drink fluids. Medical Decision Making 54-year-old gentleman with a past medical history which includes CAD and diabetes. Presents with 1 month of intermittent right-sided abdominal pain radiates from his flank to his lower abdomen. Over the past 3 days he has had persistent symptoms which are worse with activity. No other significant constit utional complaints. Exam significant for focal tenderness which reproduced subjective pain. BMP essentially normal except for mild hyperglycemia (patient baseline). CT of the abdomen and pelvis negative for acute pathology. Discussed findings with patient. Discharged with plan for OTC analgesia and outpatient follow-up. Given usual customary return instructions at the time of discharge. Medical Records Medical records reviewed: Yes I reviewed the patient's medical records. Imaging Data Radiologic Study: Attestation: I personally reviewed and interpreted this imaging study as follows: Imaging: CT Scan (CT abdomen/pelvis with IV contrast) My impression: No acute pathology explaining patient's symptoms. Reviewed independently contemporaneously by myself. Radiologist's impression: Same Lab Data Lab results reviewed: Yes I reviewed the patient's lab results. Lab results narrative: Glucose = 239 Labs: Lab Results 09/16/19 Range/Units 10:30 Sodium 138 (136-145) mmol/L Potassium 4.3 (3.5-5.1) mmol/L Chloride 102 (98-107) mmol/L Carbon Dioxide 25.6 (21.0-32.0) mmol/L Anion Gap 10.4 (3-11) mmol/L BUN 9 (7-18) mg/dL Creatinine 0.77 (0.70-1.30) mg/dL Estimated GFR/1.73 m2 >= 60.00 (mL/min/1.73m2) Glucose 239 H (74-106) mg/dL Calcium 9.2 (8.5-10.1) mg/dL HPI 54-year-old gentleman with past medical history which includes CAD, diabetes, and depression. He presents with 1 month of intermittent and now worsening abdominal pain. His pain initially was localized to the right flank and radiating to his right lower quadrant. Episodes would last for up to 1 day and then resolve spontaneously. More recently, his episodes have seemed provoked with activity. His pain is now persisted for the past 3 days and has become more generalized across his lower abdomen. It is subjectively worse with activity. He denies fever/chills, atypical dyspnea, chest pain, palpitations, abdominal bloating, change in bowel habits, melena, hematochezia, or urinary symptoms. He has no history of previous similar symptoms and has not had a work-up for his current presentation. General Date/Time Provider Initiated Documentation: 09/16/19 09:09 . Related Data Home Medications Medication Instructions Recorded Confirmed cyclobenzaprine 10 mg PO HS 12/31/12 03/13/19 furosemide [Lasix] 20 mg PO DAILY PRN 12/31/12 03/13/19 gabapentin 600 mg PO TID 12/31/12 03/13/19 levalbuterol tartrate [Xopenex HFA] 2 puff INHALATION BID 12/31/12 03/13/19 metoprolol tartrate 100 mg PO BID 12/31/12 03/13/19 nitroglycerin [Nitrostat] 0.4 mg SUBLINGUAL PRN PRN 12/31/12 03/13/19 rosuvastatin [Crestor] 20 mg PO DAILY 12/31/12 03/13/19 bupropion HCl 150 mg PO BID 02/14/14 03/13/19 pantoprazole 40 mg PO BID 02/14/14 03/13/19 losartan 25 mg PO DAILY 02/21/14 03/13/19 colchicine 0.6 mg PO DAILY 10/05/14 03/13/19 ranolazine [Ranexa] 500 mg PO BID #60 tab.er.12h 10/06/14 03/13/19 aspirin 325 mg PO DAILY 11/27/14 03/13/19 hydroxyzine pamoate 50 mg PO Q4H PRN #90 tab-cap 03/21/15 03/13/19 prochlorperazine maleate 10 mg PO Q8H PRN #90 tab-cap 03/21/15 03/13/19 topiramate [Topamax] 50 mg PO HS #30 tab 03/21/15 03/13/19 duloxetine [Cymbalta] 60 mg PO BID 08/16/15 03/13/19 hydrocodone-acetaminophen [Vicodin 1 tab PO BID 08/16/15 03/13/19 5-300 mg Tablet] oxycodone 10 mg PO .Q4-6 PRN 08/16/15 03/13/19 Previous Rx's Medication Instructions Recorded ranolazine [Ranexa] 500 mg PO BID #60 tab.er.12h 10/06/14 Allergies Allergy/AdvReac Type Severity Reaction Status Date / Time thallium-201 [Thallium-201] Allergy Severe Pt went to Unverified 09/16/19 09:22 [facility] [place] due to med lisinopril AdvReac cough Unverified 09/16/19 09:22 Paper tape Allergy Intermediate rash Uncoded 09/16/19 09:22 General Stated Complaint: Abd Prob NANCY: 3 Review of Systems All systems reviewed & are unremarkable except as noted in HPI and below PFSH Medical History Coronary artery disease (Chronic) Depression (Chronic) Diabetes (Chronic) Social History Smoking/Tobacco Use Status: Current every day Alcohol Intake: never Drug use: Daily Substance use type: marijuana Do you feel safe at home: Yes Do you feel safe in your relationship?: Yes Exam Narrative Exam Narrative: Nursing note and vital signs have been reviewed and noted. GENERAL: alert, active, no acute distress, well -hydrated, well-nourished HEENT: atraumatic/normocephalic, PERRLA, EOMI, conjunctiva clear, external ears/canals normal, nasal mucosa normal NECK: supple, full range of motion, no mass, normal lymphadenopathy, no thyromegaly CARDIOVASCULAR: RRR, no murmurs, nl pulses, no edema PULMONARY: nl effort, no audible wheezing or stridor, nl breath sounds with no focal deficit. no chest wall tenderness ABDOMEN: soft, right flank and right lower quadrant tenderness which reproduced subjective pain. Mild referred pain to the right lower quadrant with palpation of the left lower quadrant. No rebound, guarding, or peritonitis. I supervised, non-distended, no mass, no organomegaly EXTREMITY: normal muscle tone, all joints with FROM, no deformity or tenderness SKIN: no exanthem appreciated NEURO: gross motor exam normal, normal stance and gait PSYCH: alert and oriented, Course Vital Signs Vital signs: Vital Signs Temperature 98.1 F 09/16/19 09:17 Pulse 98 H 09/16/19 09:17 Respiratory Rate 09/16/19 09:17 Blood Pressure 124/70 09/16/19 09:17 Pulse Oximetry 95 09/16/19 09:17 Temperature 98.1 F 09/16/19 09:17 Temperature Source Skin 09/16/19 09:17 Pulse 98 H 09/16/19 09:17 Respiratory Rate 09/16/19 09:17 Respiratory Effort 09/16/19 09:22 Blood Pressure 124/70 09/16/19 09:17 Blood Pressure Position Sitting 09/16/19 09:17 Pulse Oximetry 95 09/16/19 09:17 Oxygen Delivery Method Room Air 09/16/19 09:17 Oxygen Flow Rate 0 09/16/19 09:17 Pain Level 3 09/16/19 09:17 Comment 09/16/19 09:17
[2019-09-16] MEDS: Lactated Ringers 1,000 ML 1000 ML IV (10:22)
[2019-09-16 10:44] LABS: Anion Gap 10.4 mmol/L (3-11); BUN 9 mg/dL (7-18); CO2 25.6 mmol/L (21.0-32.0); CREATININE 0.77 mg/dL (0.70-1.30); Calcium 9.2 mg/dL (8.5-10.1); Chloride 102 mmol/L (98-107); Glucose 239 mg/dL (74-106); Potassium 4.3 mmol/L (3.5-5.1); Sodium 138 mmol/L (136-145)
[2019-09-16] MEDS: Omnipaque 350 MG/ML 100 ML BTL IJ (11:01)
[2019-09-16] MEDS: Normal Saline - Diluent 50 ML VIAL IV (11:03)
--- NOTE | 2019-09-16 11:04 | DI.CT_ITS ---
EXAM: CT ABDOMEN PELVIS W CLINICAL HISTORY: abdominal pain. TECHNIQUE: Imaging Protocol: Axial computed tomography images with coronal and sagittal reformatted images were created and reviewed CONTRAST MATERIAL: Intravenous: Omnipaque 350 Contrast volume:100 ml Oral: No COMPARISON: No exams were available for comparison FINDINGS: ABDOMEN: Lung Bases: Normal where visualized. Liver: There is a geographic fatty infiltration present. No measurable mass. Gallbladder and biliary tract: Status post cholecystectomy. No biliary ductal dilatation. Pancreas: Normal density, no abnormal calcifications or inflammatory process. Spleen: Normal. Kidneys: Normal size, contour and axis. No radiodense stones or obstructive uropathy. There are bilat eral renal cysts. Adrenal glands: No masses seen. Abdominal Aorta: Atherosclerosis. No aneurysmal dilatation. PELVIS: Bladder: Symmetric distention, no gross wall thickening. Bowel: Diverticulosis of the colon but no evidence of acute diverticulitis. Normal appendix. No lance dence of bowel obstruction. Peritoneal cavity: No ascites, collection or mesenteric inflammatory response. Bones: Degenerative changes. Reproductive organs: Within normal limits. Lymph nodes: Unremarkable. Impression: No evidence of an acute abdominal or pelvic process. The findings were discussed with the emergency department on the date of the examination. DATA REPOSITORY: All CT scans at this facility are submitted to the National Radiology Data Registry (NRDR) Dose Index Registry (DIR) with the [employer] ([employer]). RADIATION OPTIMIZATION: All CT scans at this facility use at least one of these dose optimization te chniques: automated exposure control; mA and/or kV adjustment per patient size (includes targeted exa ms where dose is matched to clinical indication); or iterative reconstruction.
[2019-09-16 11:49] VITALS: BP 124/70; PULSE 98; RESP 20; TEMP 36.7; O2SAT 95
== END 2019-09-16 11:50 | disposition home or self-care (01) ==
PROVIDERS: Emergency Provider Emergency Medicine; PCP Family Medicine
DX: R10.31 Right lower quadrant pain (principal); E11.8 Type 2 diabetes mellitus with unspecified complications
CPT/HCPCS: 36415; 80048; 96360; 99285; 74177; 99284; J3490

== ENCOUNTER 2019-12-26 10:34 | Outpatient (CLI) | payer MEDICARE, SELFPAY | END 2019-12-26 10:54 | PROVIDERS: PCP Family Medicine; Visit Provider Internal Medicine Cardiovascular Disease | DX: I25.10 Atherosclerotic heart disease of native coronary artery without angina pectoris (principal); I10 Essential (primary) hypertension; E11.9 Type 2 diabetes mellitus without complications; Z79.4 Long term (current) use of insulin | CPT/HCPCS: 99203; 99214; 93005; 93010 ==

== ENCOUNTER 2020-01-02 01:01 | Outpatient (CLI) | payer MEDICARE, SELFPAY ==
--- NOTE | 2020-01-02 06:00 | DI.NM_ITS ---
APPROVED REPORT Exam: Exercise Treadmill Patient Location: Out-Patient Room/Bed: Stress Nurse: Yessy Hardy RN BMI: 36.44 Baseline Rhythm: Sinus Rhythm Comment: Abnormal R wave progression, early transition Indications: Progressively worsening chest pain and pressure over this past month. History of 5 cardi ac stents. Medical History Medical History: Angina, CAD s/p stent, Depression, Smoking, HTN, Hyperlipidemia, Obesity Cardiac Medications: Aspirin. Amlodipine. Metoprolol. Nitroglycerin. Losartan. Furosemide. Rosuvastat in., Allergies: Lisinopril. Thallium contrast. Thallium. Paper tape. Cardiac Risk Factors: HTN, Hyperlipidemia, DM, FHX of CAD, Smoking, COPD, CVD Previous Cardiac Procedures: PCI Pretest Chest Pain Characteristics: Exertional Chest pain Exercise History: Physically active Lung Sounds: Clear to auscultation Heart Sounds: Regular Stress Test Details Test: Exercise stress converted to pharmacologic stress due to failure to obtain a diagnostic stress test. Nuclear Acquisition: Rest Tc-99m/Stress Tc-99m 1 day Rest Isotope: Tc-99m Sestamibi. Dose: 12.5 Date: 01/02/2020 Injection Time: 0900 Stress Isotope: Tc-99m Sestamibi. Dose: 38.7 Date: 01/02/2020 Injection Time: 1035 HR Resting HR Supine: 81 bpm Max Heart Rate (APMHR): 168 bpm Resting HR Standin bpm Target HR (85% APMHR): 142 bpm Max HR Achieved: 128 bpm % of APMHR: 76 Recovery HR: 94 bpm HR response to stress: Blunted HR response to stress BP Resting BP Supine: 128/82 mmHg Resting BP Standin/90 mmHg Max BP: 170/82 mmHg Recovery BP: 138/80 mmHg BP response to stress: Normal blood pressure response to stress. ECG Resting ECG: Sinus Rhythm Comment: Abnormal R wave progression, early transition Stress ECG: Sinus Tachycardia ST Change: No significant ST segment changes Arrhythmia: None Recovery ECG: Sinus Rhythm Recovery ST Change: No significant ST segment changes Recovery Arrhythmia: None Clinical Reason for Termination: Fatigue, Dyspnea Stress Symptoms: Dyspnea, General Fatigue Exercise duration: 07 min25 sec Highest Stage Reached: Stage 3: 3.4 mph at 14% grade. Exercise capacity: 9.08 METs Functional Capacity: Mildly deminished capacity Stress ECG Conclusion 1. This was an exercise stress test converted to pharmacological stress test due to inability to achi ryanne target heart rate. 2. The EKG portion of this exam is indeterminate due to inability to reach target heart rate Stress Test Summary STAGE Time (mins) Speed (mph) Grade (%) HR BP SYMPTOMS METS Supine 81 128/82 Standing 89 126/90 1 3 1.7 10 111 130/74 4.6 2 6 2.5 12 120 7 1 min post Lexiscan injection 108 170/82 3 min post Lexiscan injection 97 148/84 Nausea. 6 min post Lexiscan injection 94 138/80 Nausea subsided. MPI Conclusion Ejection fraction was 60% with stress. There were no wall motion abnormalities. No evidence of fixed or reversible ischemia on the imaging portion of the exam. This represents a normal SPECT stress test. Radiologist Interpretation Radiologist Interpretation by: Reid Ashby MD Interpretation Date/Time: 01/02/2020 12:58:20
[2020-01-02] MEDS: Regadenoson 0.4 MG/5 ML SYR IVP (11:07)
== END 2020-01-02 01:21 ==
PROVIDERS: PCP Family Medicine; Visit Provider Internal Medicine Cardiovascular Disease
DX: I25.10 Atherosclerotic heart disease of native coronary artery without angina pectoris (principal); R07.89 Other chest pain; I10 Essential (primary) hypertension; E78.5 Hyperlipidemia, unspecified; F17.210 Nicotine dependence, cigarettes, uncomplicated; Z82.49 Family history of ischemic heart disease and other diseases of the circulatory system
CPT/HCPCS: 78452; 93016; 93018; 93017; J2785

== ENCOUNTER 2020-02-02 16:48 | Outpatient (REF) | payer MEDICARE, SELFPAY ==
[2020-02-02 19:45] LABS: Hemoglobin A1C 8.1 % (3.8-5.6)
[2020-02-02 19:51] LABS: ALT 49 U/L (16-63); AST 32 U/L (15-37); Alkaline Phosphatase 59 U/L (46-116); Anion Gap 12.1 mmol/L (3-11); BUN 13 mg/dL (7-18); Bilirubin, Total 0.3 mg/dL (0.2-1.0); CO2 22.9 mmol/L (21.0-32.0); CREATININE 1.14 mg/dL (0.70-1.30); Calcium 9.4 mg/dL (8.5-10.1); Chloride 108 mmol/L (98-107); Glucose 119 mg/dL (74-106); Potassium 3.8 mmol/L (3.5-5.1); Sodium 143 mmol/L (136-145); Total Protein 7.1 g/dL (6.4-8.2)
== END 2020-02-02 17:08 ==
LOC: NCHCN 16:48
PROVIDERS: PCP Family Medicine; Visit Provider Family Medicine
DX: E11.9 Type 2 diabetes mellitus without complications (principal); E78.5 Hyperlipidemia, unspecified; I10 Essential (primary) hypertension
CPT/HCPCS: 80053; 83036

== ENCOUNTER → 2020-02-10 09:06 | Outpatient (BNVA) | payer MEDICARE, SELFPAY | PROVIDERS: PCP Family Medicine; Referring Provider Family Medicine; Visit Provider Internal Medicine Cardiovascular Disease | DX: I25.10 Atherosclerotic heart disease of native coronary artery without angina pectoris (principal); I10 Essential (primary) hypertension; E78.5 Hyperlipidemia, unspecified; E11.9 Type 2 diabetes mellitus without complications | CPT/HCPCS: 99214 ==

== ENCOUNTER 2020-03-01 15:21 | Outpatient (REF) | payer MEDICARE, SELFPAY ==
[2020-03-01 19:24] LABS: ALT 20 U/L (16-63); AST 15 U/L (15-37); Albumin 3.5 g/dL (3.4-5.0); Alkaline Phosphatase 62 U/L (46-116); Anion Gap 16.3 mmol/L (3-11); BUN 13 mg/dL (7-18); Bilirubin, Total 0.4 mg/dL (0.2-1.0); C-Reactive Protein 8.53 mg/dL (0.0-0.3); CO2 19.7 mmol/L (21.0-32.0); CREATININE 0.91 mg/dL (0.70-1.30); Calcium 8.9 mg/dL (8.5-10.1); Chloride 102 mmol/L (98-107); Glucose 186 mg/dL (74-106); Magnesium 1.5 mg/dL (1.8-2.4); Potassium 3.4 mmol/L (3.5-5.1); Sodium 138 mmol/L (136-145); Total Protein 6.8 g/dL (6.4-8.2)
[2020-03-01 19:34] LABS: Abs Immature Grans 0.05 k/cumm (0.0-0.09); Absolute Basophil Count 0.06 k/cumm (0.0-0.2); Absolute Eosinophil Count 0.32 k/cumm (0.0-0.7); Absolute Lymphocyte Count 1.77 k/cumm (1.2-3.4); Absolute Neutrophil Count 6.16 k/cumm (1.2-6.7); Basophils % 0.6; Eosinophils % 3.3; HCT 43.8 % (40.0-50.0); Immature Grans % 0.5 %; Lymphocytes % 18.5; Mean Corp. HGB Concentration 34.2 g/dL (32.0-36.0); Mean Corpuscular Hemoglobin 29.2 pg (27.0-33.0); Mean Corpuscular Volume 85.2 fL (80-95); Mean Platelet Volume 11.4 fL (8.0-11.0); Monocytes % 12.6; Neutrophils % 64.5; Platelet Count 218 x1000/uL (130-400); RBC 5.14 m/cumm (4.50-6.00); RBC Distribution Width 14.3 % (11.8-14.1); White Blood Cell Count 9.56 k/cumm (4.4-10.8)
[2020-03-01 20:41] LABS: ESR 28 mm/hr (1-20)
[2020-03-01 21:30] LABS: Diff Comment Agrees w/ Instrument
== END 2020-03-01 15:41 ==
LOC: NCHCN 15:21
PROVIDERS: PCP Family Medicine; Visit Provider Family Medicine
DX: R19.7 Diarrhea, unspecified (principal); R10.9 Unspecified abdominal pain
CPT/HCPCS: 80053; 85652; 83735; 85025; 86140

== ENCOUNTER 2020-08-02 21:22 | Outpatient (REF) | payer MEDICARE, SELFPAY ==
[2020-08-06 22:42] LABS: Codeine Negative ng/mL (Cutoff: 25); Dihydrocodeine Negative ng/mL (Cutoff: 25); Hydrocodone Negative ng/mL (Cutoff: 25); Hydromorphone Negative ng/mL (Cutoff: 25); Morphine Negative ng/mL (Cutoff: 25); Naloxone Negative ng/mL (Cutoff: 25); Norhydrocodone Negative ng/mL (Cutoff: 25); Noroxycodone Negative ng/mL (Cutoff: 25); Noroxymorphone Negative ng/mL (Cutoff: 25); Opiates Interpretation Negative.
== END 2020-08-02 21:42 ==
LOC: NCHCN 21:22
PROVIDERS: PCP Family Medicine; Visit Provider Family Medicine
DX: G89.29 Other chronic pain (principal); Z79.899 Other long term (current) drug therapy
CPT/HCPCS: 80361

== ENCOUNTER → 2020-08-15 07:10 | Outpatient (CLI) | payer MEDICARE, SELFPAY ==
--- NOTE | 2020-08-31 09:39 | W.ZIOMONITOR ---
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 ?Patient was in normal sinus rhythm for the majority of the recording with an average heart rate of 82 bpm. ?There were rare PACs and rare PVCs. ?There were no episodes of supraventricular tachycardia nor any episodes of ventricular tachycardia ?There were no episodes of atrial fibrillation, no pauses greater than 3 seconds and no evidence of high degree heart block ?There were 25 patient triggered events all associated with sinus rhythm, sinus tachycardia and occasional PVC.
== END ==
PROVIDERS: PCP Family Medicine; Visit Provider Family Medicine
DX: R00.2 Palpitations (principal)
CPT/HCPCS: 93246

== ENCOUNTER 2020-08-27 17:30 | Outpatient (REF) | payer OTHER, SELFPAY ==
[2020-08-31 10:34] LABS: Codeine Negative ng/mL (Cutoff: 25); Dihydrocodeine Negative ng/mL (Cutoff: 25); Hydrocodone Negative ng/mL (Cutoff: 25); Hydromorphone Negative ng/mL (Cutoff: 25); Morphine Negative ng/mL (Cutoff: 25); Naloxone Negative ng/mL (Cutoff: 25); Norhydrocodone Negative ng/mL (Cutoff: 25); Noroxycodone 102 ng/mL (Cutoff: 25); Noroxymorphone Negative ng/mL (Cutoff: 25); Opiates Interpretation Positive.
== END 2020-08-27 17:50 ==
LOC: NCHCN 17:30
PROVIDERS: PCP Family Medicine; Visit Provider Family Medicine
DX: G89.29 Other chronic pain (principal)
CPT/HCPCS: 80361; 80362

== ENCOUNTER 2020-08-31 09:39 | Outpatient (CLI) | payer OTHER, SELFPAY | END 2020-08-31 09:59 | PROVIDERS: PCP Family Medicine; Referring Provider Family Medicine; Visit Provider Internal Medicine Cardiovascular Disease | DX: R00.2 Palpitations (principal); I49.3 Ventricular premature depolarization; R00.0 Tachycardia, unspecified | CPT/HCPCS: 0298T ==

== ENCOUNTER 2020-11-12 02:25 | Outpatient (CLI) | payer OTHER, SELFPAY ==
--- NOTE | 2020-11-12 13:37 | DI.RAD_ITS ---
EXAM: XR HIP RT COMPLETE AP PELVIS CLINICAL HISTORY: RT HIP PAIN,M25.551. TECHNIQUE: 2D digital imaging was performed. FINDINGS: There is mild acetabular spurring and joint space narrowing bilaterally in the hips. The bones are n ormally mineralized. No acute fracture or dislocation is seen. The sacroiliac joints and symphysis pubis are well maintained. [id number] degenerative changes are seen in the lower lumbar spine. The soft tissues are unremarkable. IMPRESSION: Mild degenerative changes of the hips bilaterally. Hjme-ha-[id number] degenerative changes in the lower lumbar spine. DATA REPOSITORY: RADIATION DOSE DELIVERED:
--- NOTE | 2020-11-12 13:39 | DI.RAD_ITS ---
EXAM: XR SHOULDER LT COMPLETE 2+V CLINICAL HISTORY: LT SHOULDER PAIN, M25.512. TECHNIQUE: 2D digital imaging was performed. COMPARISON: CR RIGHT SHOULDER COMPLETE from 03/15/2010 FINDINGS: BONES: No acute fracture is present. No bony destructive lesion is seen. JOINTS: No dislocation present. SOFT TISSUE: Normal. IMPRESSION: No acute abnormality. DATA REPOSITORY: RADIATION DOSE DELIVERED:
--- NOTE | 2020-11-12 13:39 | DI.RAD_ITS ---
EXAM: XR CERVICAL SPINE COMP 4-5V CLINICAL HISTORY: CERVICALGIA,M54.2. TECHNIQUE: 2D digital imaging was performed. COMPARISON: No exams were available for comparison FINDINGS: The odontoid is intact. The lateral masses are well aligned. There is normal alignment of the cervi ferny spine. There is disc space narrowing at C4-5, C5-6 and C6-C7. Endplate osteophytes are seen fro m C2-C3 through C7-T1. There is mild narrowing of the neural foramen bilaterally at C6-C7. No acute fracture or subluxation is seen. The prevertebral soft tissues are unremarkable. IMPRESSION: Moderate cervical spondylosis. DATA REPOSITORY: RADIATION DOSE DELIVERED:
--- NOTE | 2020-11-12 13:39 | DI.RAD_ITS ---
EXAM: XR KNEE LT 3V AP,LAT,GILBERTO CLINICAL HISTORY: LT KNEE PAIN,M25.562. TECHNIQUE: 2D digital imaging was performed. COMPARISON: CR RIGHT KNEE 3 VIEWS from 07/17/2014 FINDINGS: BONES: No acute fracture is present. No bony destructive lesion is seen. JOINTS: The knee is normally aligned. There is a small joint effusion. SOFT TISSUE: Normal. IMPRESSION: Small joint effusion. DATA REPOSITORY: RADIATION DOSE DELIVERED:
== END 2020-11-12 02:45 ==
PROVIDERS: PCP Family Medicine; Visit Provider Family Medicine
DX: M25.512 Pain in left shoulder (principal); M25.462 Effusion, left knee; M47.812 Spondylosis without myelopathy or radiculopathy, cervical region; M16.0 Bilateral primary osteoarthritis of hip; M47.816 Spondylosis without myelopathy or radiculopathy, lumbar region
CPT/HCPCS: 73562; 72050; 73030; 73502

== ENCOUNTER → 2020-11-23 09:55 | Outpatient (BNVA) | payer OTHER, SELFPAY | PROVIDERS: PCP Family Medicine; Referring Provider Family Medicine; Visit Provider Internal Medicine Cardiovascular Disease | DX: I25.10 Atherosclerotic heart disease of native coronary artery without angina pectoris (principal); Z86.73 Personal history of transient ischemic attack (TIA), and cerebral infarction without residual deficits | CPT/HCPCS: 99214; 99213 ==

== ENCOUNTER 2021-01-02 10:57 | Outpatient (REF) | payer OTHER, SELFPAY ==
[2021-01-05 15:51] LABS: 2-Hydroxy Ethyl Flurazepam Not Detected ng/mL (Cutoff: 10); 3,4-methylenedioxyamphetamine Not Detected ng/mL (Cutoff: 100); 3,4-methylenedioxyethylampheta Not Detected ng/mL (Cutoff: 100); 3,4-methylenedioxymethamphetam Not Detected ng/mL (Cutoff: 100); 6-monoacetylmorphine Not Detected ng/mL (Cutoff: 25); Alpha-Hydroxy Midazolam Not Detected ng/mL (Cutoff: 10); Alpha-Hydroxy Triazolam Not Detected ng/mL (Cutoff: 10); Alpha-Hydroxyalprazolam Not Detected ng/mL (Cutoff: 10); Alpha-OH-alprazolam Glucuronid Not Detected ng/mL (Cutoff: 50); Alprazolam Not Detected ng/mL (Cutoff: 10); Amphetamine Not Detected ng/mL (Cutoff: 100); Barbiturates Negative ng/mL (Cutoff: 200); Buprenorphine Not Detected ng/mL (Cutoff: 5); Chlordiazepoxide Not Detected ng/mL (Cutoff: 10); Clobazam Not Detected ng/mL (Cutoff: 10); Clonazepam Not Detected ng/mL (Cutoff: 10); Cocaine Negative ng/mL (Cutoff: 150); Codeine Not Detected ng/mL (Cutoff: 25); Comment Normal; Creatinine, U 59.4 mg/dL; Diazepam Not Detected ng/mL (Cutoff: 10); Dihydrocodeine Not Detected ng/mL (Cutoff: 25); EDDP Not Detected ng/mL (Cutoff: 25); Ephedrine Not Detected ng/mL (Cutoff: 100); Fentanyl Not Detected ng/mL (Cutoff: 2); Flurazepam Not Detected ng/mL (Cutoff: 10); Hydrocodone Not Detected ng/mL (Cutoff: 25); Hydromorphone Not Detected ng/mL (Cutoff: 25); Hydromorphone-3-beta-glucuroni Not Detected ng/mL (Cutoff: 100); Lorazepam Not Detected ng/mL (Cutoff: 10); Lorazepam Glucuronide Not Detected ng/mL (Cutoff: 50); Meperidine Not Detected ng/mL (Cutoff: 25); Methadone Not Detected ng/mL (Cutoff: 25); Methamphetamine Not Detected ng/mL (Cutoff:100); Methylphenidate Not Detected ng/mL (Cutoff: 20); Midazolam Not Detected ng/mL (Cutoff: 10); Morphine Not Detected ng/mL (Cutoff: 25); N-Desmethylclobazam Not Detected ng/mL (Cutoff: 200); N-desmethyltapentadol Not Detected ng/mL (Cutoff: 50); Naloxone Not Detected ng/mL (Cutoff: 25); Norbuprenorphine Not Detected ng/mL (Cutoff: 5); Norfentanyl Not Detected ng/mL (Cutoff: 2); Norhydrocodone Not Detected ng/mL (Cutoff: 25); Normeperidine Not Detected ng/mL (Cutoff: 25); Noroxycodone Not Detected ng/mL (Cutoff: 25); Noroxymorphone Not Detected ng/mL (Cutoff: 25); O-desmethyltramadol Not Detected ng/mL (Cutoff: 25); Oxazepam Glucuronide Not Detected ng/mL (Cutoff: 50); Phencyclidine (PCP) Not Detected ng/mL (Cutoff: 20); Phentermine Not Detected ng/mL (Cutoff: 100); Prazepam Not Detected ng/mL (Cutoff: 10); Propoxyphene Not Detected ng/mL (Cutoff: 25); Pseudoephedrine Not Detected ng/mL (Cutoff: 100); Ritalinic Acid Not Detected ng/mL (Cutoff: 100); Specific Gravity 1.011; Tapentadol Not Detected ng/mL (Cutoff: 25); Temazepam Not Detected ng/mL (Cutoff: 10); Temazepam Glucuronide Not Detected ng/mL (Cutoff: 50); Tetrahydrocannabinol Presumptive Positive ng/mL (Cutoff: 50); Tramadol Not Detected ng/mL (Cutoff: 25); Triazolam Not Detected ng/mL (Cutoff: 10); Zolpidem Phenyl-4-Carboxy acid Not Detected ng/mL (Cutoff: 10); pH 7.4
[2021-01-24 13:12] LABS: Carboxy-THC Interpretation Positive.; Delta-9 CarboxyThc by LC-MS/MS 252 ng/mL (Cutoff:<3)
== END 2021-01-02 10:58 | disposition home or self-care (01) ==
LOC: LBN 10:57
PROVIDERS: PCP Family Medicine; Visit Provider Nurse Practitioner Family
DX: M96.1 Postlaminectomy syndrome, not elsewhere classified (principal); Z79.899 Other long term (current) drug therapy
CPT/HCPCS: 80307; 80347; 80349; 80364

== ENCOUNTER 2021-01-17 13:06 | Outpatient (REF) | payer OTHER, SELFPAY ==
[2021-01-17 15:27] LABS: HCT 41.4 % (40.0-50.0); HGB 13.8 g/dL (13.5-17.5); MCH 29.2 pg (27.0-33.0); MCHC 33.3 % (32.0-36.0); MCV 87.5 fL (80-95); MPV 11.2 fL (8.0-11.0); Platelet Count 199 10^3/uL (130-400); RBC 4.73 10^6/uL (4.36-5.78); RDW 13.3 % (11.8-14.1); RDW-SD 42.9 fL; WBC 8.95 10^3/uL (4.4-10.8)
[2021-01-17 16:09] LABS: ALT 23 U/L (16-63); AST 14 U/L (15-37); Albumin 3.6 g/dL (3.4-5.0); Alkaline Phosphatase 75 U/L (46-116); Anion Gap 13.7 mmol/L (3-11); BUN 15 mg/dL (7-18); Bilirubin, Total 0.3 mg/dL (0.2-1.0); CO2 22.3 mmol/L (21.0-32.0); Calcium 8.9 mg/dL (8.5-10.1); Calculated LDL 86 mg/dL (<100); Chloride 104 mmol/L (98-107); Cholesterol 169 mg/dL (<200); Glucose 163 mg/dL (74-106); HDL Cholesterol 36 mg/dL (40-60); Magnesium 1.8 mg/dL (1.8-2.4); Sodium 140 mmol/L (136-145); Total Protein 7.1 g/dL (6.4-8.2); Triglyceride 236 mg/dL (<150)
[2021-01-17 16:37] LABS: C-Reactive Protein 2.74 mg/dL (0.0-0.3)
== END 2021-01-17 13:07 | disposition home or self-care (01) ==
LOC: NCHCN 13:06
PROVIDERS: PCP Family Medicine; Visit Provider Family Medicine
DX: E11.9 Type 2 diabetes mellitus without complications (principal); E78.5 Hyperlipidemia, unspecified; E83.42 Hypomagnesemia; M54.2 Cervicalgia
CPT/HCPCS: 80053; 80061; 85027; 83735; 86140

== ENCOUNTER 2021-06-07 11:01 | Observation (INO) | payer MEDICARE, OTHER, SELFPAY ==
[2021-06-07] VITALS (41 sets, daily range): BP systolic 108–135; BP diastolic 72–89; PULSE 79–102; RESP 9–20; TEMP 36.6–38.3; O2SAT 92–100
--- NOTE | 2021-06-07 | DI.CT_ITS ---
Exam(s) CT PELVIC WO EXAM: CT PELVIC WO CLINICAL HISTORY: R groin abscess. TECHNIQUE: Imaging Protocol: Axial computed tomography images with coronal and sagittal reformatted images were created and reviewed. CONTRAST MATERIAL: Oral: No COMPARISON: CT CT ABDOMEN PELVIS W from 09/16/2019 FINDINGS: PELVIS: Abdominal Aorta: Mild atherosclerosis. Bowel: No obstruction or bowel wall thickening. Appendix is unremarkable. Mild diverticulosis, but no evidence of acute diverticulitis. Peritoneal Cavity: No ascites, collection or mesenteric inflammatory response. Soft Tissues: There is inflammatory stranding in the right inguinal region extending to involve the r ight scrotum, perineum and proximal right thigh. No drainable fluid collection is identified. Bladder: Symmetric distention, no gross wall thickening. Reproductive Organs: Unremarkable as visualized. Lymph Nodes: Mildly enlarged right inguinal lymph nodes which are likely reactive. Bones: Within normal limits. IMPRESSION: 1. Inflammatory stranding in the right inguinal region, perineum and right scrotum without drainable fluid collection. 2. Mildly enlarged reactive right inguinal lymph nodes. RADIATION DOSE DELIVERED: 776.09mGy.cmTotal DLP 776.09mGy.cmTotal DLP DATA REPOSITORY: All CT scans at this facility are submitted to the National Radiology Data Registry (NRDR) Dose Index Registry (DIR) with the [employer] [place] [employer] (ACR). RADIATION OPTIMIZATION: All CT scans at this facility use at least one of these dose optimization te chniques: automated exposure control; mA and/or kV adjustment per patient size (includes targeted exa ms where dose is matched to clinical indication); or iterative reconstruction.
--- NOTE | 2021-06-07 11:30 | RT.EKG_ITS ---
APPROVED REPORT Exam: Resting ECG Reason for Exam: CHEST PAIN Patient Location: E HR:91 bpm ECG Measurements Heart Rate 91 AXIS GA 142 P 14 QRSd 80 QRS 21 QT 328 T 17 QTc 404 Conclusion Sinus rhythm...normal P axis, V-rate 60- 99 Anteroseptal infarct, age indeterminate...Q >35mS, T neg, V1-V2
--- NOTE | 2021-06-07 12:15 | DI.RAD_ITS ---
Exam(s) XR PORTABLE CHEST AP EXAM: XR PORTABLE CHEST AP CLINICAL HISTORY: chest pain TECHNIQUE: 2D digital imaging was performed. COMPARISON: CR XR CHEST 2V PA LATERAL from 03/13/2019 FINDINGS: LUNGS: Clear. No pleural abnormality seen. HEART: Normal size. Coronary artery stent.. MEDIASTINUM: Normal. BONES: Unremarkable. IMPRESSION: No acute pulmonary findings. DATA REPOSITORY: RADIATION DOSE DELIVERED:
[2021-06-07 12:45] LABS: Abs Immature Grans 0.05 10^3/uL (0.0-0.06); Absolute Basophil Count 0.06 10^3/uL (0.0-0.2); Absolute Eosinophil Count 0.36 10^3/uL (0.0-0.7); Absolute Lymphocyte Count 2.03 10^3/uL (1.2-3.4); Absolute Neutrophil Count 6.63 10^3/uL (1.2-6.7); Basophils % 0.6; Eosinophils % 3.6; HCT 40.8 % (40.0-50.0); HGB 13.9 g/dL (13.5-17.5); Immature Grans % 0.5; MCH 29.1 pg (27.0-33.0); MCHC 34.1 % (32.0-36.0); MCV 85.4 fL (80-95); MPV 10.6 fL (8.0-11.0); Monocytes % 9.9; Neutrophils % 65.4; Nucleated RBC 0 %; Platelet Count 215 10^3/uL (130-400); RBC 4.78 10^6/uL (4.36-5.78); RDW 12.9 % (11.8-14.1); RDW-SD 40.3 fL; WBC 10.13 10^3/uL (4.4-10.8)
[2021-06-07 13:09] LABS: ALT 18 U/L (16-63); AST 10 U/L (15-37); Albumin 3.2 g/dL (3.4-5.0); Alkaline Phosphatase 56 U/L (46-116); Anion Gap 8.8 mmol/L (3-11); BUN 8 mg/dL (7-18); Bilirubin, Total 0.4 mg/dL (0.2-1.0); CO2 26.2 mmol/L (21.0-32.0); CREATININE 0.8 mg/dL (0.70-1.30); Calcium 8.8 mg/dL (8.5-10.1); Chloride 100 mmol/L (98-107); Glucose 284 mg/dL (74-106); Lipase 83 U/L (73-393); Potassium 3.5 mmol/L (3.5-5.1); Sodium 135 mmol/L (136-145); Total Protein 7.1 g/dL (6.4-8.2)
[2021-06-07 13:11] LABS: Troponin I < 0.05 ng/mL (<0.06)
--- NOTE | 2021-06-07 13:36 | W.ED.GENAD ---
Discharge Plan Disposition Patient Disposition: [facility] INPATIENT Condition: Stable Discharge Details Chief Complaint: GenMedical Clinical Impression: CAD (coronary artery disease), Abscess of right groin Admit Date/Time: 06/07/21 15:50 Admit Provider: Magnolia Ann Attending Provider: Magnolia Ann Primary Care Provider: Cnoi Lim V ED Provider: Maria Luisa Quiroz Discharge Instructions Activity:: BR with bathroom privileg Equipment/Supplies:: No Equipment Needed Diet:: NPO after MN Discharge Orders Discharge Orders: Discharge Order (Routine); Ordered 06/08/21 Ordered By: Graham Hendricks Discharge Data Discharge Date/Time-TO BE ENTERED AT DEPARTURE: 06/07/21 16:38 Medical Decision Making Patient has 2 - troponins, EKG baseline per patient Consider pulmonary embolism but as patient is not tachypneic, not remaining tachycardic, and without hypoxia, my patient is low for PE He does have a significant coronary artery disease history, I did discuss the case with Gertrude, physician facilities maintenance assistant on-call for cardiology at [facility] and she is also concerned for unstable angina Patient will be accepted by [facility] tomorrow for cardiac catheterization for 20 admission here this evening with serial troponins He received heparin bolus and infusion, there aspirin, nitroglycerin, pain-free at time of reassessment Blood pressure stable, no need for additional intervention Diagnostic labs not show significant abnormality, x-ray without abnormality Patient was accepted in admission by Dr. Ann after repeat troponin was negative Reviewed cardiac catheterization We will initiate antibiotic, no evidence of sepsis, no leukocytosis, afebrile, check temperature numerous occasions, and no significant tachycardia, rate controlled atrial fibrillation HPI General Mode of arrival: ambulatory. Date/Time Provider Initiated Documentation: 06/07/21 12:10. Limitations to Documentation: no limitations. Information obtained by: patient. HPI Narrative: This 55-year-old gentleman with history of coronary artery disease, hypomagnesemia, TIA, DM 2, hypertension presents with report of chest pain, diaphoresis that started upon arrival. Denies any shortness of breath or current nausea. States he has been having this pain that radiates to his jaw since arrival., Has been approximately 10 minutes at the time of my assessment. He smokes tobacco daily. He denies any current illicit drug use. He describes the pain is more pressure sensation. He has a history of 2 stents reportedly. Last catheterization was 2 years ago per patient. Is otherwise taking all of his medications as prescribed. Denies any associated shortness of breath. Is having chest pain both at rest and with exertion which is new for patient. Patient also mom mentions that he has been having some dental pain. He states that this is been going on for the past several weeks. He also has a lesion to his right groin that is draining. Patient states this is been present for the past week. He also states his chest intermittent dental discomfort. Denies fever or chills. Denies IV drug abuse. He states this is been present for the past he denies any dysuria or frequency. He denies known fever or chills. He did not take any of his medications reportedly. Today. He denies any significant spreading redness of the groin region. He denies any risk sexually transmitted disease. Related Data Home Medications Medication Instructions Recorded Confirmed cyclobenzaprine 10 mg PO HS 12/31/12 06/07/21 nitroglycerin [Nitrostat] 0.4 mg SUBLINGUAL PRN PRN 12/31/12 06/07/21 rosuvastatin [Crestor] 20 mg PO DAILY 12/31/12 06/07/21 bupropion HCl 150 mg PO BID 02/14/14 06/07/21 pantoprazole 40 mg PO BID 02/14/14 06/07/21 albuterol sulfate 90 mcg/actuation 2 puff IH Q6H PRN 12/26/19 06/07/21 aerosol inhaler aspirin 81 mg tablet,delayed 81 mg PO DAILY 12/26/19 06/07/21 release hydroxyzine pamoate 50 mg capsule 25 mg PO Q4H PRN #90 tab-cap 12/26/19 06/07/21 pramipexole 0.5 mg tablet 0.5 mg PO .2 AM AND 1 HS 12/26/19 06/07/21 simethicone 80 mg chewable tablet 80 mg PO BID-QID PRN 12/26/19 02/10/20 sucralfate 1 gram tablet 1 gm PO QACHS 12/26/19 06/07/21 isosorbide mononitrate 30 mg 30 mg PO DAILY #90 tab 02/10/20 06/07/21 tablet,extended release 24 hr metformin 500 mg tablet,extended 1,000 mg PO DAILY tab 02/10/20 06/07/21 release 24 hr colchicine 0.6 mg tablet 0.6 mg PO BID PRN tab 11/23/20 06/07/21 docusate sodium 100 mg capsule 100 mg PO BID PRN 11/23/20 06/07/21 metoprolol succinate 200 mg 200 mg PO DAILY #90 tab 11/23/20 11/23/20 tablet,extended release 24 hr polyethylene glycol 3350 17 17 gm PO DAILY PRN 11/23/20 06/07/21 gram/dose oral powder ranolazine 500 mg tablet,extended 500 mg PO BID #60 tab 11/23/20 06/07/21 release,12 hr duloxetine [Cymbalta] 60 mg PO BID 12/24/20 06/07/21 gabapentin 300 mg PO TID 12/24/20 06/07/21 losartan 12.5 mg PO DAILY 12/24/20 06/07/21 prochlorperazine maleate 10 mg PO Q8H PRN 12/24/20 06/07/21 albuterol sulfate [Ventolin HFA] 90 mcg INHALATION PRN PRN 06/07/21 06/07/21 topiramate 25 mg PO QAM 06/07/21 06/07/21 topiramate 50 mg PO QPM 06/07/21 06/07/21 Previous Rx's Medication Instructions Recorded isosorbide mononitrate 30 mg 30 mg PO DAILY #90 tab 02/10/20 tablet,extended release 24 hr metoprolol succinate 200 mg 200 mg PO DAILY #90 tab 11/23/20 tablet,extended release 24 hr ranolazine 500 mg tablet,extended 500 mg PO BID #60 tab 11/23/20 release,12 hr Allergies Allergy/AdvReac Type Severity Reaction Status Date / Time thallium-201 [Thallium-201] Allergy Severe Pt went to Verified 02/21/21 09:41 [facility] [place] ciprofloxacin Allergy Intermediate Verified 02/21/21 09:41 lisinopril AdvReac cough Verified 02/21/21 09:41 Paper tape Allergy Intermediate rash Uncoded 02/21/21 09:41 General Stated Complaint: GenMedical NANCY: 3 Review of Systems All systems reviewed & are unremarkable except as noted in HPI and below PFSH Medical History Abdominal hernia Abdominal pain Acute diarrhea Atypical angina CAD (coronary artery disease) Cervicalgia Cholelithiasis a. cholecystectomy Chronic pain Depression Diabetes Diverticulitis Duodenitis Family history of colon cancer Gastroparesis diabeticorum Gastropathy Headache Hematuria Hemiplegic migraine With intractable migraine, so stated, without mention of status migrainosus Hip pain, right History of TIAs Hypotensive episode Knee pain, left Left cervical radiculopathy Leg pain, right Myalgia Myocardial infarction, inferior wall Palpitations Peripheral neuropathy Postural lightheadedness Reaction, situational RLS (restless legs syndrome) Shoulder pain, left Smoker Syncope Tachycardia, paroxysmal Surgical History History of cholecystectomy History of colonoscopy History of coronary artery stent placement History of knee surgery Social History Smoking/Tobacco Use Status: Current every day Tobacco Type: cigarettes Smoking risk assessment performed?: Yes Alcohol Intake: current Alcohol Intake frequency: holidays/special occasions only Drug use: Daily Substance use type: marijuana Details: 2-3 joints/day Household members: spouse Housing: house Number of Children: 2 current occupation: Disabled What type of physical activity do you participate in: walking, independent ambulation and additional Details: work at home (outside work) Do you feel safe at home: Yes Do you feel safe in your relationship?: Yes Exam Const General: cooperative, no acute distress and ill appearing HENMT Other: Uvula midline, no trismus, widespread dental decay without deep space infection noted, no obvious abscess, no stridor, no soft palate induration Eyes Pupils: PERRL Neck Other: No stridor Resp Effort & Inspection: normal respiratory effort Cardio Rate: regular rate Rhythm: abnormal rhythm Other: No murmur GI Other: Nontender abdominal exam Skin Other: Small draining right inguinal region with mild surrounding erythema, no scrotal involvement, no significant erythema or edema, no evidence of [place]'s gangrene, no crepitus Neuro General: patient alert and patient oriented x3 Extrem Other: Distal pulses intact, no calf swelling or tenderness Course Vital Signs Vital signs: Vital Signs Temperature 36.6 C 06/07/21 11:09 Pulse 102 H 06/07/21 11:09 Respiratory Rate 16 06/07/21 11:09 Blood Pressure 135/89 06/07/21 11:09 Pulse Oximetry 100 06/07/21 11:09 Temperature 36.6 C 06/07/21 11:09 Temperature Source Skin 06/07/21 11:09 Pulse 102 H 06/07/21 11:09 Respiratory Rate 16 06/07/21 11:56 Respiratory Effort Non-Labored 06/07/21 11:56 Respiratory Depth Normal 06/07/21 11:56 Respiratory Pattern Normal 06/07/21 11:56 Blood Pressure 135/89 06/07/21 11:09 Blood Pressure Position Sitting 06/07/21 11:09 Pulse Oximetry 100 06/07/21 11:09 Oxygen Delivery Method Room Air 06/07/21 11:09 Oxygen Flow Rate 0 06/07/21 11:09 Pain Level 5 06/07/21 11:09 Lab/Test Results Lab/Test Results: Laboratory Tests Range/Units 06/07/21 06/07/21 06/07/21 12:16 12:16 12:16 WBC Cancelled RBC Cancelled Hgb Cancelled Hct Cancelled MCV Cancelled MCH Cancelled MCHC Cancelled RDW Cancelled Plt Count Cancelled MPV Cancelled Immature Gran % Cancelled Neutrophils % Cancelled Band Neutrophils % Cancelled Lymphocytes % Cancelled Atypical Lymphs % Cancelled Monocytes % Cancelled Eosinophils % Cancelled Basophils % Cancelled Metamyelocytes % Cancelled Myelocytes % Cancelled Promyelocytes % Cancelled Other Cells % Cancelled Nucleated RBC % Cancelled Absolute Neutrophils Cancelled Absolute Lymphocytes Cancelled Absolute Monocytes Cancelled Absolute Eosinophils Cancelled Absolute Basophils Cancelled RBC Morphology Cancelled Polychromasia Cancelled Hypochromasia Cancelled Poikilocytosis Cancelled Basophilic Stippling Cancelled Anisocytosis Cancelled Microcytosis Cancelled Macrocytosis Cancelled Spherocytes Cancelled Tear Drop Cells Cancelled Ovalocytes Cancelled Stomatocytes Cancelled [place] Bodies Cancelled [place] Cells/Echinocytes Cancelled Acanthocytes (Spur) Cancelled Schistocytes Cancelled Sodium Cancelled Potassium Cancelled Chloride Cancelled Carbon Dioxide Cancelled Anion Gap Cancelled BUN Cancelled Creatinine Cancelled Estimated GFR/1.73 m2 Cancelled Glucose Cancelled Calcium Cancelled Total Bilirubin Cancelled AST Cancelled ALT Cancelled Alkaline Phosphatase Cancelled Troponin I Cancelled Total Protein Cancelled Albumin Cancelled Lipase Cancelled Range/Units 06/07/21 06/07/21 12:32 12:32 WBC 10.13 RBC 4.78 Hgb 13.9 Hct 40.8 MCV 85.4 MCH 29.1 MCHC 34.1 RDW 12.9 Plt Count 215 MPV 10.6 Immature Gran % 0.5 Neutrophils % 65.4 Band Neutrophils % Lymphocytes % 20.0 Atypical Lymphs % Monocytes % 9.9 Eosinophils % 3.6 Basophils % 0.6 Metamyelocytes % Myelocytes % Promyelocytes % Other Cells % Nucleated RBC % 0 Absolute Neutrophils 6.63 Absolute Lymphocytes 2.03 Absolute Monocytes 1.00 H Absolute Eosinophils 0.36 Absolute Basophils 0.06 RBC Morphology Polychromasia Hypochromasia Poikilocytosis Basophilic Stippling Anisocytosis Microcytosis Macrocytosis Spherocytes Tear Drop Cells Ovalocytes Stomatocytes [place] Bodies Zeynep Cells/Echinocytes Acanthocytes (Spur) Schistocytes Sodium 135 L Potassium 3.5 Chloride 100 Carbon Dioxide 26.2 Anion Gap 8.8 BUN 8 Creatinine 0.8 Estimated GFR/1.73 m2 >= 60.00 Glucose 284 H Calcium 8.8 Total Bilirubin 0.4 AST 10 L ALT 18 Alkaline Phosphatase 56 Troponin I < 0.05 Total Protein 7.1 Albumin 3.2 L Lipase 83 Critical Care Time Critical Care Time Critical Care Time: Yes Total Critical Care Time: 45 Attestation: Cardiac consultation, [place] cardiac consultation, hospitalist consultation, serial troponins, ED EKG, telemetry monitoring, heparin bolus and infusion, aspirin, PAWSS Have you Been Recently Intoxicated or Drunk Within the Last 30 days?: No Have you Ever Experienced Previous Episodes of Alcohol Withdrawal?: No Have you ever Experienced Withdrawal Seizures?: No Have you ever Experienced Delirium Tremens(DT)s?: No Have you ever undergone Alcohol Rehabilitation Treatment (i.e, inpt ot outpatient treatment programs)?: No Have you ever Experienced Blackouts?: No Have you ever Combined Alcohol with other Downers within the last 90 days?: No Have you ever Combined Alcohol with any other Substance of Abuse during the last 90 days?: No Result: 0
[2021-06-07] MEDS: Aspirin 81 MG CHEW 243 MG CH (13:53)
--- NOTE | 2021-06-07 15:00 | RT.EKG_ITS ---
APPROVED REPORT Exam: Resting ECG Reason for Exam: chest pain Patient Location: E HR:84 bpm ECG Measurements Heart Rate 84 AXIS [place] 148 P 35 QRSd 80 QRS 25 QT 339 T 14 QTc 401 Conclusion Sinus rhythm...normal P axis, V-rate 60- 99
[2021-06-07] MEDS: nitroGLYcerin 0.4 MG TAB SL ×4 (15:12→22:56)
[2021-06-07] MEDS: Clopidogrel 300 MG TAB PO (15:14)
[2021-06-07 15:25] LABS: Troponin I < 0.05 ng/mL (<0.06)
[2021-06-07 15:57] LABS: Source Nasal/Nares
[2021-06-07 16:37] LABS: D-Dimer 845 ng/mlFEU (<500)
[2021-06-07 16:55] LABS: COVID-19 PCR Negative (Negative)
[2021-06-07] MEDS: Insulin Aspart 300 UNITS/3 ML PEN SC ×2 (17:29→22:23)
[2021-06-07 17:58] LABS: PTT Activated 38.9 sec (21.0-27.5)
--- NOTE | 2021-06-07 19:37 | W.PM.HP.N ---
Date of service: 06/07/21 Time of Service: 19:37 Assessment and Plan Assessment and plan (1) Unstable angina: Status: Suspected Assessment and plan: Continue to monitor on tele, trend troponins. Continue asa, plavix, heparin gtt. NPO after midnight. Accepted in transfer to [facility] [place] for tomorrow by Dr Hodgson for an evaluation for a cardiac cath. I think the patient might be right to be concerned about his sx being triggered by systemic infection, however, so will get blood cultures and start empiric zosyn. (2) Abscess of right groin: Status: Acute Assessment and plan: Start zosyn after obtaining blood cultures. Obtain CT pelvis (without contrast). Case discussed with Dr Betancourt of general surgery who will see the patient in consult. (3) Dental infection: Status: Acute Assessment and plan: Start zosyn. Blood cultures pending (could be portal of entry). Would benefit from tooth extraction. (4) Hypertension: Status: Chronic Assessment and plan: Continue home medications (5) Hyperlipidemia: Status: Chronic Assessment and plan: Start atorvastatin 80 mg rather than home rosuvastatin. (6) Diabetes mellitus, type II: Status: Chronic Assessment and plan: Provide SSI while inpatient. The patient does not appear to be on medical therapy for diabetes at home. Check A1C. (7) Discharge planning issues: Status: Acute Assessment and plan: Full code Preaccepted to [facility] [place] for a bed tomorrow for anticipated cardiac cath. Accepting MD Dr Hodgson. History of Present Illness History of Present Illness Chief Complaint: chest pain Narrative: Mr Coe is a 55 year old male with PMHx of CAD s/p stents x 5 in total (2 in 2011 (mLAD and pOM1), x 1 in 2013 to LAD, x1 to RCA in 2017, and one more that I am unable to clarify) with mention of unstable angina in his chart, as well as H/o NIDDM2, paroxysmal tachycardia, TIA, HTN, hyperlipidemia, GERD, and who presented to [facility] ED today c/o L-sided chest pain radiating to the jaw which did eventually resolve with nitroglycerin. The patient states that he had woken up with substernal chest discomfort which became heaviness when he got up. It radiated to the L jaw and shoulder, was accompanied by dizziness, palpitations, shortness of breath, and nausea. It got better with rest but did not go away entirely until arrival to the ED. The patient states he has been noticing palpitations a lot in the last couple of weeks and feels like they might be related to what is going on with his teeth. He states that he knows that his teeth are infected, and a couple of them broke two weeks ago. Since then, he describes low grade fevers at home. 2-3 days ago he notices a boil in his right groin which is now more swollen. He also noticed that his penis got more swollen at the same time. He is concerned about this infection which he thinks may be involving his whole body now and that his chest pain is connected to all of it. In the ED, the patient has had two negative troponins, and his EKG was unchanged. Unstable angina was suspected. He was initiated on aspirin, plavix, and heparin gtt. The patient was accepted in transfer to [facility] [place] cardiology service for tomorrow by Dr Hodgson for a cardiac cath. Of note, the patient had a cardiac cath in 02/2019 which revealed no obstructive leasions to explain resting pain at that time. Coronary vasospasm was suspected at that time and medical management was recommended. Review of Systems All systems reviewed & are unremarkable except as noted in HPI and below PFSH Medical History (Updated 06/07/21 @ 20:46 by Magnolia Ann MD) Abdominal hernia Abdominal pain Acute diarrhea Atypical angina CAD (coronary artery disease) Cervicalgia Cholelithiasis a. cholecystectomy Chronic pain Depression Diabetes Diverticulitis Duodenitis Family history of colon cancer Gastroparesis diabeticorum Gastropathy Headache Hematuria Hemiplegic migraine With intractable migraine, so stated, without mention of status migrainosus Hip pain, right History of TIAs Hypotensive episode Knee pain, left Left cervical radiculopathy Leg pain, right Myalgia Myocardial infarction, inferior wall Palpitations Peripheral neuropathy Postural lightheadedness Reaction, situational RLS (restless legs syndrome) Shoulder pain, left Smoker Syncope Tachycardia, paroxysmal Surgical History (Updated 03/07/21 @ 14:42 by Katiana Penn RN) History of cholecystectomy History of colonoscopy History of coronary artery stent placement History of knee surgery Social History Smoking/Tobacco Use Status: Current every day Tobacco Type: cigarettes Smoking risk assessment performed?: Yes Alcohol Intake: current Alcohol Intake frequency: holidays/special occasions only Drug use: Daily Substance use type: marijuana Details: 2-3 joints/day Household members: spouse Housing: house Number of Children: 2 current occupation: Disabled What type of physical activity do you participate in: walking, independent ambulation and additional Details: work at home (outside work) Do you feel safe at home: Yes Do you feel safe in your relationship?: Yes Meds Allergies and Home Medications Allergies Allergy/AdvReac Type Severity Reaction Status Date / Time thallium-201 [Thallium-201] Allergy Severe Pt went to Verified 02/21/21 09:41 [facility] [place] due to med ciprofloxacin Allergy Intermediate Verified 02/21/21 09:41 lisinopril AdvReac cough Verified 02/21/21 09:41 Paper tape Allergy Intermediate rash Uncoded 02/21/21 09:41 Home Medications Medication Instructions Recorded Confirmed Type cyclobenzaprine 10 mg PO HS 12/31/12 06/07/21 History nitroglycerin [Nitrostat] 0.4 mg SUBLINGUAL PRN PRN 12/31/12 06/07/21 History rosuvastatin [Crestor] 20 mg PO DAILY 12/31/12 06/07/21 History bupropion HCl 150 mg PO BID 02/14/14 06/07/21 History pantoprazole 40 mg PO BID 02/14/14 06/07/21 History albuterol sulfate 90 mcg/actuation 2 puff IH Q6H PRN 12/26/19 06/07/21 History aerosol inhaler aspirin 81 mg tablet,delayed 81 mg PO DAILY 12/26/19 06/07/21 History release hydroxyzine pamoate 50 mg capsule 25 mg PO Q4H PRN #90 tab-cap 12/26/19 06/07/21 History pramipexole 0.5 mg tablet 0.5 mg PO .2 AM AND 1 HS 12/26/19 06/07/21 History simethicone 80 mg chewable tablet 80 mg PO BID-QID PRN 12/26/19 02/10/20 History sucralfate 1 gram tablet 1 gm PO QACHS 12/26/19 06/07/21 History isosorbide mononitrate 30 mg 30 mg PO DAILY #90 tab 02/10/20 06/07/21 Rx tablet,extended release 24 hr metformin 500 mg tablet,extended 1,000 mg PO DAILY tab 02/10/20 06/07/21 History release 24 hr colchicine 0.6 mg tablet 0.6 mg PO BID PRN tab 11/23/20 06/07/21 History docusate sodium 100 mg capsule 100 mg PO BID PRN 11/23/20 06/07/21 History metoprolol succinate 200 mg 200 mg PO DAILY #90 tab 11/23/20 11/23/20 Rx tablet,extended release 24 hr polyethylene glycol 3350 17 17 gm PO DAILY PRN 11/23/20 06/07/21 History gram/dose oral powder ranolazine 500 mg tablet,extended 500 mg PO BID #60 tab 11/23/20 06/07/21 Rx release,12 hr duloxetine [Cymbalta] 60 mg PO BID 12/24/20 06/07/21 History gabapentin 300 mg PO TID 12/24/20 06/07/21 History losartan 12.5 mg PO DAILY 12/24/20 06/07/21 History prochlorperazine maleate 10 mg PO Q8H PRN 12/24/20 06/07/21 History albuterol sulfate [Ventolin HFA] 90 mcg INHALATION PRN PRN 06/07/21 06/07/21 History topiramate 25 mg PO QAM 06/07/21 06/07/21 History topiramate 50 mg PO QPM 06/07/21 06/07/21 History Exam Narrative Exam Narrative: General: Pleasant middle-aged male who has a cough, A&Ox3, does not look toxic Neurological: A&Ox3,no focal deficits Psychiatric: Appropriate speech pattern/content Skin: R inguinal erythema and induration contiguous with penile edema HEENT: Atraumatic, normocephalic, EOMI, dry MM, poor dentition and dental hygiene, clear oropharynx, no submandibular or cervical lymphadenopathy, gointer or JVD Cardiovascular: RRR,no m/r/g Lungs: CTAB, coughs occasionally Gastrointestinal: soft, nontender, nondistended Genitourinary: See skin Extremities: trace edema, no clubbing/cyanosis, 1+ pedal pulses B, no lesions on B feet Results Imaging Additional studies: EKG #1: NSR, HR 91, No acute ischemia EKG #2: NSR, HR 84, unchanged. CXR: No acute pulmonary findings Labs Result diagrams: 06/07/21 12:32 06/07/21 12:32 Labs: Laboratory Results - last 24 hr 06/07/21 06/07/21 06/07/21 12:16 12:16 12:16 WBC Cancelled RBC Cancelled Hgb Cancelled Hct Cancelled MCV Cancelled MCH Cancelled MCHC Cancelled RDW Cancelled Plt Count Cancelled MPV Cancelled Immature Gran % Cancelled Neutrophils % Cancelled Band Neutrophils % Cancelled Lymphocytes % Cancelled Atypical Lymphs % Cancelled Monocytes % Cancelled Eosinophils % Cancelled Basophils % Cancelled Metamyelocytes % Cancelled Myelocytes % Cancelled Promyelocytes % Cancelled Other Cells % Cancelled Nucleated RBC % Cancelled Absolute Neutrophils Cancelled Absolute Lymphocytes Cancelled Absolute Monocytes Cancelled Absolute Eosinophils Cancelled Absolute Basophils Cancelled RBC Morphology Cancelled Polychromasia Cancelled Hypochromasia Cancelled Poikilocytosis Cancelled Basophilic Stippling Cancelled Anisocytosis Cancelled Microcytosis Cancelled Macrocytosis Cancelled Spherocytes Cancelled Tear Drop Cells Cancelled Ovalocytes Cancelled Stomatocytes Cancelled [place] Bodies Cancelled Zeynep Cells/Echinocytes Cancelled Acanthocytes (Spur) Cancelled Schistocytes Cancelled APTT D-Dimer Sodium Cancelled Potassium Cancelled Chloride Cancelled Carbon Dioxide Cancelled Anion Gap Cancelled BUN Cancelled Creatinine Cancelled Estimated GFR/1.73 m2 Cancelled Glucose Cancelled Calcium Cancelled Total Bilirubin Cancelled AST Cancelled ALT Cancelled Alkaline Phosphatase Cancelled Troponin I Cancelled Total Protein Cancelled Albumin Cancelled Lipase Cancelled COVID-19 Source SARS-CoV-2 (PCR) 06/07/21 06/07/21 06/07/21 12:32 12:32 12:34 WBC 10.13 RBC 4.78 Hgb 13.9 Hct 40.8 MCV 85.4 MCH 29.1 MCHC 34.1 RDW 12.9 Plt Count 215 MPV 10.6 Immature Gran % 0.5 Neutrophils % 65.4 Band Neutrophils % Lymphocytes % 20.0 Atypical Lymphs % Monocytes % 9.9 Eosinophils % 3.6 Basophils % 0.6 Metamyelocytes % Myelocytes % Promyelocytes % Other Cells % Nucleated RBC % 0 Absolute Neutrophils 6.63 Absolute Lymphocytes 2.03 Absolute Monocytes 1.00 H Absolute Eosinophils 0.36 Absolute Basophils 0.06 RBC Morphology Polychromasia Hypochromasia Poikilocytosis Basophilic Stippling Anisocytosis Microcytosis Macrocytosis Spherocytes Tear Drop Cells Ovalocytes Stomatocytes [place] Bodies Zeynep Cells/Echinocytes Acanthocytes (Spur) Schistocytes APTT D-Dimer 845 H Sodium 135 L Potassium 3.5 Chloride 100 Carbon Dioxide 26.2 Anion Gap 8.8 BUN 8 Creatinine 0.8 Estimated GFR/1.73 m2 >= 60.00 Glucose 284 H Calcium 8.8 Total Bilirubin 0.4 AST 10 L ALT 18 Alkaline Phosphatase 56 Troponin I < 0.05 Total Protein 7.1 Albumin 3.2 L Lipase 83 COVID-19 Source SARS-CoV-2 (PCR) 06/07/21 06/07/21 06/07/21 14:45 15:29 17:38 WBC RBC Hgb Hct MCV MCH MCHC RDW Plt Count MPV Immature Gran % Neutrophils % Band Neutrophils % Lymphocytes % Atypical Lymphs % Monocytes % Eosinophils % Basophils % Metamyelocytes % Myelocytes % Promyelocytes % Other Cells % Nucleated RBC % Absolute Neutrophils Absolute Lymphocytes Absolute Monocytes Absolute Eosinophils Absolute Basophils RBC Morphology Polychromasia Hypochromasia Poikilocytosis Basophilic Stippling Anisocytosis Microcytosis Macrocytosis Spherocytes Tear Drop Cells Ovalocytes Stomatocytes [place] Bodies [place] Cells/Echinocytes Acanthocytes (Spur) Schistocytes APTT 38.9 H D-Dimer Sodium Potassium Chloride Carbon Dioxide Anion Gap BUN Creatinine Estimated GFR/1.73 m2 Glucose Calcium Total Bilirubin AST ALT Alkaline Phosphatase Troponin I < 0.05 Total Protein Albumin Lipase COVID-19 Source Nasal/Nares SARS-CoV-2 (PCR) Negative Last Vital Signs Temp 37.3 C 06/07/21 18:49 Pulse 87 06/07/21 18:49 Resp 18 06/07/21 18:49 BP 132/80 06/07/21 18:49 Pulse Ox 97 06/07/21 18:49 PAWSS Have you Been Recently Intoxicated or Drunk Within the Last 30 days?: No Have you Ever Experienced Previous Episodes of Alcohol Withdrawal?: No Have you ever Experienced Withdrawal Seizures?: No Have you ever Experienced Delirium Tremens(DT)s?: No Have you ever undergone Alcohol Rehabilitation Treatment (i.e, inpt ot outpatient treatment programs)?: No Have you ever Experienced Blackouts?: No Have you ever Combined Alcohol with other Downers within the last 90 days?: No Have you ever Combined Alcohol with any other Substance of Abuse during the last 90 days?: No Result: 0
[2021-06-07] MEDS: Topiramate 50 MG TAB PO (20:28)
[2021-06-07] MEDS: buPROPion-CR 150 MG TABCR PO (20:28)
[2021-06-07] MEDS: Atorvastatin 40 MG TAB 80 MG PO (20:29)
[2021-06-07] MEDS: Pantoprazole 40 MG TABCR PO (20:30)
[2021-06-07] MEDS: DULoxetine 30 MG CAP 60 MG PO (20:32)
[2021-06-07] MEDS: Gabapentin 300 MG CAP PO (20:32)
[2021-06-07 21:07] LABS: Bilirubin Negative (Negative); Blood Negative (Negative); Clarity Clear (Clear); Glucose >=1000 mg/dL (Negative); Ketones Negative (Negative); Leukocyte Esterase Negative (Negative); Nitrite Negative (Negative); Specific Gravity 1.025 (1.005-1.025); pH 6.5 (5-8)
[2021-06-07 21:45] LABS: C-Reactive Protein 8.14 mg/dL (0.0-0.3)
[2021-06-07 21:47] LABS: Troponin I < 0.05 ng/mL (<0.06)
[2021-06-07 21:54] LABS: PTT Activated 27.2 sec (21.0-27.5)
[2021-06-07 22:03] LABS: Procalcitonin < 0.1 ng/mL
[2021-06-07] MEDS: Normal Saline Flush 10 ML SYR IVP (22:22)
[2021-06-07] MEDS: Sucralfate 1 GM TAB PO (22:23)
[2021-06-07] MEDS: Cyclobenzaprine 10 MG TAB PO (22:23)
[2021-06-07] MEDS: PIPERACILLIN/TAZO 3.375 GM in Normal Saline 50 ML IVPB (22:23)
--- NOTE | 2021-06-07 22:42 | DI.VRAD_ITS ---
PROCEDURE INFORMATION: Exam: CT Pelvis Without Contrast Exam date and time: 06/07/2021 8:29 PM Age: 55 years old Clinical indication: Other: R groin abscess TECHNIQUE: Imaging protocol: Computed tomography images of the pelvis without contrast. COMPARISON: CT ABDOMEN PELVIS W 09/16/2019 10:56 AM FINDINGS: Stomach and bowel: No dilated bowel. Colonic diverticula. Appendix: No evidence of appendicitis. Intraperitoneal space: Unremarkable. No free air. No significant fluid collection. Lymph nodes: Asymmetric prominence of right inguinal lymph nodes. Urinary bladder: Normal. No mass. Reproductive: Normal as visualized. Bones/joints: The spine demonstrates mild degenerative changes at multiple levels. No acute fracture. No dislocation. Soft tissues: Fat stranding in right groin, extending inferiorly into proximal right thigh, perineum and superior aspect of right hemiscrotum. No discrete collection or air-fluid level. Surgical clip interposed between bladder and rectum. IMPRESSION: 1. Fat stranding in right groin extending into thigh, perineum in superior aspect of right hemiscrotum. 2. No drainable collection identified. 3. Colonic diverticula. Dictated and Authenticated by: Daniel Delong MD. Ordering:VIANEY Merida MD
[2021-06-07 23:10] LABS: PTT Activated 27.2 sec (21.0-27.5)
[2021-06-08] VITALS (8 sets, daily range): BP systolic 109–139; BP diastolic 67–86; PULSE 64–95; RESP 17–18; TEMP 36.2–36.9; O2SAT 95–98
[2021-06-08] MEDS: PIPERACILLIN/TAZO 3.375 GM in Normal Saline 50 ML IVPB ×3 (03:30→16:19)
[2021-06-08] MEDS: Normal Saline Flush 10 ML SYR IVP ×4 (03:30→14:50)
[2021-06-08] MEDS: Prochlorperazine 10 MG TAB PO (06:14)
[2021-06-08] MEDS: Ondansetron 4 MG/2 ML VIAL IVP (06:54)
[2021-06-08 07:33] LABS: HCT 41.9 % (40.0-50.0); HGB 14.1 g/dL (13.5-17.5); MCH 28.5 pg (27.0-33.0); MCHC 33.7 % (32.0-36.0); MCV 84.6 fL (80-95); Platelet Count 207 10^3/uL (130-400); RBC 4.95 10^6/uL (4.36-5.78); RDW 12.9 % (11.8-14.1); RDW-SD 39.8 fL; WBC 9.29 10^3/uL (4.4-10.8)
[2021-06-08 07:56] LABS: PTT Activated 42.5 sec (21.0-27.5)
--- NOTE | 2021-06-08 08:00 | DI.US_ITS ---
Exam(s) US SOFT TISS EXTREMITY/GROIN EXAM: US SOFT TISS EXTREMITY/GROIN CLINICAL HISTORY: R groin abscess. TECHNIQUE: Ultrasound was performed using standard protocol. COMPARISON: No exams were available for comparison FINDINGS: Sonographic assessment utilizing grayscale and color Doppler imaging was performed and targeted to th e area of clinical concern. There is edema seen in the soft tissues in the right inguinal region. Deep to the wound site there i s a hypoechoic collection measuring 4.7 cm long by 1 cm AP by was 0.7 cm transverse. This appears to represent a fluid collection. An abscess cannot be entirely excluded. IMPRESSION: DATA REPOSITORY:
[2021-06-08 08:13] LABS: Anion Gap 11.3 mmol/L (3-11); BUN 13 mg/dL (7-18); CO2 25.7 mmol/L (21.0-32.0); CREATININE 0.9 mg/dL (0.70-1.30); Calcium 8.9 mg/dL (8.5-10.1); Calculated LDL 161 mg/dL (<100); Chloride 100 mmol/L (98-107); Cholesterol 237 mg/dL (<200); Glucose 306 mg/dL (74-106); HDL Cholesterol 35 mg/dL (40-60); Magnesium 1.7 mg/dL (1.8-2.4); Potassium 3.8 mmol/L (3.5-5.1); Sodium 137 mmol/L (136-145); Triglyceride 206 mg/dL (<150)
[2021-06-08 08:28] LABS: Hemoglobin A1C 9.7 % (<5.7)
[2021-06-08 08:33] LABS: NT-proBNP 74 pg/mL (<300)
[2021-06-08 08:35] LABS: Troponin I < 0.05 ng/mL (<0.06)
--- NOTE | 2021-06-08 09:57 | SCONE_ITS ---
Date of service: 06/08/21 Time of Service: 09:57 Assessment and Plan Assessment and plan (1) Abscess of right groin: Status: Acute Assessment and plan: -Currently appears to be cellulitis with a small i ndurated area, continue to monitor area of erythema to ensure it's not spreading -Continue broad spectrum IV abx -If area appears worsened or if patient develops a fluid collection, will need surgical drainage vs needle aspiration as patient is fully anticoagulated -Blood glucose control -Warm compress -Will continue to follow until transferred to [facility] for cardiac catheterization (2) Unstable angina: Status: Suspected (3) Diabetes mellitus, type II: Status: Chronic Qualifiers: Diabetes mellitus long-term insulin use: 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 Diabetes mellitus complication status: with other specified complication Qualified Code(s): E11.69 - Type 2 diabetes mellitus with other specified complication (4) Atherosclerotic cardiovascular disease: Status: Acute (5) Hypertension: Status: Chronic Qualifiers: Hypertension type: unspecified Qualified Code(s): I10 - Essential (primary) hypertension (6) Tobacco abuse: Status: Chronic Assessment and plan: -Advised quitting as this impedes wound healing process (7) Dental infection: Status: Acute History of Present Illness Narrative: 56 year old male with multiple medical problems current;y admitted for unstable angina in the setting of CAD, new onset diabetes mellitus and right groin cellulitis. Patient states he felt feverish and ill prompting him to come to the emergency department. He initially thought that all of his ailments were the result of a dental infection. He underwent CT of the pelvis which I reviewed last evening showing no drainable collection in the right groin, but evidence of inflammation. I was called by Dr. Ann for concern for possible abscess. Patient states he had this same problem before but on the opposite side. He reports this area began spontaneously draining the day prior to his admission here. Consults Consult date: 06/08/21 Requesting physician: Magnolia Ann Review of Systems Constitutional Constitutional: Reports fever(s) and Reports malaise Cardiovascular Cardiovascular: Reports chest pain, Denies syncope, Reports rapid heart rate, Denies leg edema and Denies dyspnea Respiratory Respiratory: Denies cough, Denies dyspnea and Denies wheezing Gastrointestinal Gastrointestinal: Denies abdominal pain, Denies nausea and Denies vomiting Genitourinary Genitourinary: Denies dysuria and Reports scrotal swelling Integumentary/Breasts Skin/Breast: Reports erythema (right groin) Neurologic Neurologic: Denies syncope Allergic/Immunologic Allergic/Immunologic: Denies wheezing [facility] Medical History (Updated 06/08/21 @ 16:15 by Naye Clancy DO) Abdominal hernia Abdominal pain Acute diarrhea Atypical angina CAD (coronary artery disease) Cervicalgia Cholelithiasis a. cholecystectomy Chronic pain Depression Diabetes Diverticulitis Duodenitis Family history of colon cancer Gastroparesis diabeticorum Gastropathy Headache Hematuria Hemiplegic migraine With intractable migraine, so stated, without mention of status migrainosus Hip pain, right History of TIAs Hypotensive episode Knee pain, left Left cervical radiculopathy Leg pain, right Myalgia Myocardial infarction, inferior wall Palpitations Peripheral neuropathy Postural lightheadedness Reaction, situational RLS (restless legs syndrome) Shoulder pain, left Smoker Syncope Tachycardia, paroxysmal Surgical History (Updated 03/07/21 @ 14:42 by Katiana Penn RN) History of cholecystectomy History of colonoscopy History of coronary artery stent placement History of knee surgery Social History Smoking/Tobacco Use Status: Current every day Tobacco Type: cigarettes Smoking risk assessment performed?: Yes Alcohol Intake: current Alcohol Intake frequency: holidays/special occasions only Drug use: Daily Substance use type: marijuana Details: 2-3 joints/day Household members: spouse Housing: house Number of Children: 2 current occupation: Disabled What type of physical activity do you participate in: walking, independent ambulation and additional Details: work at home (outside work) Do you feel safe at home: Yes Do you feel safe in your relationship?: Yes Exam Const General: cooperative, comfortable and no acute distress Nutritional Appearance: average body habitus Resp Effort & Inspection: normal respiratory effort, no audible wheezes, no cough and no respiratory distress Cardio Rate: regular rate Rhythm: regular rhythm GI Inspection: normal to inspection and non-distended Palpation: soft and nontender Skin General skin exam: erythema (right groin) and other (induration and small pustule right groin, mildly tender) Neuro General: patient alert, patient awake and patient oriented x3 Cranial Nerves: CN's II-XI intact bilaterally Cognition: normal cognition Speech: speech normal Results Last Vital Signs Temp 98.1 F 06/08/21 07:50 Pulse 87 06/08/21 07:50 Resp 18 06/08/21 07:50 BP 119/73 06/08/21 07:50 Pulse Ox 95 06/08/21 07:50 Labs Result diagrams: 06/08/21 06:51 06/08/21 06:51 Labs: Laboratory Results - last 24 hr 06/07/21 06/07/21 06/07/21 12:16 12:16 12:16 WBC Cancelled RBC Cancelled Hgb Cancelled Hct Cancelled MCV Cancelled MCH Cancelled MCHC Cancelled RDW Cancelled Plt Count Cancelled MPV Cancelled Immature Gran % Cancelled Neutrophils % Cancelled Band Neutrophils % Cancelled Lymphocytes % Cancelled Atypical Lymphs % Cancelled Monocytes % Cancelled Eosinophils % Cancelled Basophils % Cancelled Metamyelocytes % Cancelled Myelocytes % Cancelled Promyelocytes % Cancelled Other Cells % Cancelled Nucleated RBC % Cancelled Absolute Neutrophils Cancelled Absolute Lymphocytes Cancelled Absolute Monocytes Cancelled Absolute Eosinophils Cancelled Absolute Basophils Cancelled RBC Morphology Cancelled Polychromasia Cancelled Hypochromasia Cancelled Poikilocytosis Cancelled Basophilic Stippling Cancelled Anisocytosis Cancelled Microcytosis Cancelled Macrocytosis Cancelled Spherocytes Cancelled Tear Drop Cells Cancelled Ovalocytes Cancelled Stomatocytes Cancelled [place] Bodies Cancelled Zeynep Cells/Echinocytes Cancelled Acanthocytes (Spur) Cancelled Schistocytes Cancelled APTT D-Dimer Sodium Cancelled Potassium Cancelled Chloride Cancelled Carbon Dioxide Cancelled Anion Gap Cancelled BUN Cancelled Creatinine Cancelled Estimated GFR/1.73 m2 Cancelled Glucose Cancelled Hemoglobin A1c Calcium Cancelled Magnesium Total Bilirubin Cancelled AST Cancelled ALT Cancelled Alkaline Phosphatase Cancelled Troponin I Cancelled C-Reactive Protein NT-Pro-B Natriuret Pep Total Protein Cancelled Albumin Cancelled Triglycerides Total Cholesterol LDL Cholesterol, Calc HDL Cholesterol Lipase Cancelled Procalcitonin Urine Color Urine Clarity Urine pH Ur Specific [place] Urine Protein Urine Ketones Urine Blood Urine Nitrite Urine Bilirubin Urine Urobilinogen Ur Leukocyte Esterase Urine Glucose COVID-19 Source SARS-CoV-2 (PCR) 06/07/21 06/07/21 06/07/21 12:32 12:32 12:34 WBC 10.13 RBC 4.78 Hgb 13.9 Hct 40.8 MCV 85.4 MCH 29.1 MCHC 34.1 RDW 12.9 Plt Count 215 MPV 10.6 Immature Gran % 0.5 Neutrophils % 65.4 Band Neutrophils % Lymphocytes % 20.0 Atypical Lymphs % Monocytes % 9.9 Eosinophils % 3.6 Basophils % 0.6 Metamyelocytes % Myelocytes % Promyelocytes % Other Cells % Nucleated RBC % 0 Absolute Neutrophils 6.63 Absolute Lymphocytes 2.03 Absolute Monocytes 1.00 H Absolute Eosinophils 0.36 Absolute Basophils 0.06 RBC Morphology Polychromasia Hypochromasia Poikilocytosis Basophilic Stippling Anisocytosis Microcytosis Macrocytosis Spherocytes Tear Drop Cells Ovalocytes Stomatocytes Daniels[place] Bodies Victor Cells/Echinocytes Acanthocytes (Spur) Schistocytes APTT D-Dimer 845 H Sodium 135 L Potassium 3.5 Chloride 100 Carbon Dioxide 26.2 Anion Gap 8.8 BUN 8 Creatinine 0.8 Estimated GFR/1.73 m2 >= 60.00 Glucose 284 H Hemoglobin A1c Calcium 8.8 Magnesium Total Bilirubin 0.4 AST 10 L ALT 18 Alkaline Phosphatase 56 Troponin I < 0.05 C-Reactive Protein NT-Pro-B Natriuret Pep Total Protein 7.1 Albumin 3.2 L Triglycerides Total Cholesterol LDL Cholesterol, Calc HDL Cholesterol Lipase 83 Procalcitonin Urine Color Urine Clarity Urine pH Ur Specific [place] Urine Protein Urine Ketones Urine Blood Urine Nitrite Urine Bilirubin Urine Urobilinogen Ur Leukocyte Esterase Urine Glucose COVID-19 Source SARS-CoV-2 (PCR) 06/07/21 06/07/21 06/07/21 14:45 15:29 17:38 WBC RBC Hgb Hct MCV MCH MCHC RDW Plt Count MPV Immature Gran % Neutrophils % Band Neutrophils % Lymphocytes % Atypical Lymphs % Monocytes % Eosinophils % Basophils % Metamyelocytes % Myelocytes % Promyelocytes % Other Cells % Nucleated RBC % Absolute Neutrophils Absolute Lymphocytes Absolute Monocytes Absolute Eosinophils Absolute Basophils RBC Morphology Polychromasia Hypochromasia Poikilocytosis Basophilic Stippling Anisocytosis Microcytosis Macrocytosis Spherocytes Tear Drop Cells Ovalocytes Stomatocytes Daniels-[place] Bodies Victor Cells/Echinocytes Acanthocytes (Spur) Schistocytes APTT 38.9 H D-Dimer Sodium Potassium Chloride Carbon Dioxide Anion Gap BUN Creatinine Estimated GFR/1.73 m2 Glucose Hemoglobin A1c Calcium Magnesium Total Bilirubin AST ALT Alkaline Phosphatase Troponin I < 0.05 C-Reactive Protein NT-Pro-B Natriuret Pep Total Protein Albumin Triglycerides Total Cholesterol LDL Cholesterol, Calc HDL Cholesterol Lipase Procalcitonin Urine Color Urine Clarity Urine pH Ur Specific [place] Urine Protein Urine Ketones Urine Blood Urine Nitrite Urine Bilirubin Urine Urobilinogen Ur Leukocyte Esterase Urine Glucose COVID-19 Source Nasal/Nares SARS-CoV-2 (PCR) Negative 06/07/21 06/07/21 06/07/21 20:30 21:05 21:05 WBC RBC Hgb Hct MCV MCH MCHC RDW Plt Count MPV Immature Gran % Neutrophils % Band Neutrophils % Lymphocytes % Atypical Lymphs % Monocytes % Eosinophils % Basophils % Metamyelocytes % Myelocytes % Promyelocytes % Other Cells % Nucleated RBC % Absolute Neutrophils Absolute Lymphocytes Absolute Monocytes Absolute Eosinophils Absolute Basophils RBC Morphology Polychromasia Hypochromasia Poikilocytosis Basophilic Stippling Anisocytosis Microcytosis Macrocytosis Spherocytes Tear Drop Cells Ovalocytes Stomatocytes Daniels-[place] Bodies Zeynep Cells/Echinocytes Acanthocytes (Spur) Schistocytes APTT 27.2 D D-Dimer Sodium Potassium Chloride Carbon Dioxide Anion Gap BUN Creatinine Estimated GFR/1.73 m2 Glucose Hemoglobin A1c Calcium Magnesium Total Bilirubin AST ALT Alkaline Phosphatase Troponin I < 0.05 C-Reactive Protein NT-Pro-B Natriuret Pep Total Protein Albumin Triglycerides Total Cholesterol LDL Cholesterol, Calc HDL Cholesterol Lipase Procalcitonin Urine Color Yellow Urine Clarity Clear Urine pH 6.5 Ur Specific [place] 1.025 Urine Protein Negative Urine Ketones Negative Urine Blood Negative Urine Nitrite Negative Urine Bilirubin Negative Urine Urobilinogen 1.0 H Ur Leukocyte Esterase Negative Urine Glucose >=1000 H COVID-19 Source SARS-CoV-2 (PCR) 06/07/21 06/07/21 06/07/21 21:05 21:05 22:42 WBC RBC Hgb Hct MCV MCH MCHC RDW Plt Count MPV Immature Gran % Neutrophils % Band Neutrophils % Lymphocytes % Atypical Lymphs % Monocytes % Eosinophils % Basophils % Metamyelocytes % Myelocytes % Promyelocytes % Other Cells % Nucleated RBC % Absolute Neutrophils Absolute Lymphocytes Absolute Monocytes Absolute Eosinophils Absolute Basophils RBC Morphology Polychromasia Hypochromasia Poikilocytosis Basophilic Stippling Anisocytosis Microcytosis Macrocytosis Spherocytes Tear Drop Cells Ovalocytes Stomatocytes Daniels-[place] Bodies Zeynep Cells/Echinocytes Acanthocytes (Spur) Schistocytes APTT 27.2 D-Dimer Sodium Potassium Chloride Carbon Dioxide Anion Gap BUN Creatinine Estimated GFR/1.73 m2 Glucose Hemoglobin A1c Calcium Magnesium Total Bilirubin AST ALT Alkaline Phosphatase Troponin I C-Reactive Protein 8.14 H NT-Pro-B Natriuret Pep Total Protein Albumin Triglycerides Total Cholesterol LDL Cholesterol, Calc HDL Cholesterol Lipase Procalcitonin < 0.1 Urine Color Urine Clarity Urine pH Ur Specific [place] Urine Protein Urine Ketones Urine Blood Urine Nitrite Urine Bilirubin Urine Urobilinogen Ur Leukocyte Esterase Urine Glucose COVID-19 Source SARS-CoV-2 (PCR) 06/08/21 06/08/21 06/08/21 06:51 06:51 06:51 WBC 9.29 RBC 4.95 Hgb 14.1 Hct 41.9 MCV 84.6 MCH 28.5 MCHC 33.7 RDW 12.9 Plt Count 207 MPV 11.0 Immature Gran % Neutrophils % Band Neutrophils % Lymphocytes % Atypical Lymphs % Monocytes % Eosinophils % Basophils % Metamyelocytes % Myelocytes % Promyelocytes % Other Cells % Nucleated RBC % Absolute Neutrophils Absolute Lymphocytes Absolute Monocytes Absolute Eosinophils Absolute Basophils RBC Morphology Polychromasia Hypochromasia Poikilocytosis Basophilic Stippling Anisocytosis Microcytosis Macrocytosis Spherocytes Tear Drop Cells Ovalocytes Stomatocytes Daniels-[place] Bodies Zeynep Cells/Echinocytes Acanthocytes (Spur) Schistocytes APTT D-Dimer Sodium 137 Potassium 3.8 Chloride 100 Carbon Dioxide 25.7 Anion Gap 11.3 H BUN 13 Creatinine 0.9 Estimated GFR/1.73 m2 >= 60.00 Glucose 306 H Hemoglobin A1c 9.7 H Calcium 8.9 Magnesium 1.7 L Total Bilirubin AST ALT Alkaline Phosphatase Troponin I C-Reactive Protein NT-Pro-B Natriuret Pep Total Protein Albumin Triglycerides 206 H Total Cholesterol 237 H LDL Cholesterol, Calc 161 H HDL Cholesterol 35 L Lipase Procalcitonin Urine Color Urine Clarity Urine pH Ur Specific [place] Urine Protein Urine Ketones Urine Blood Urine Nitrite Urine Bilirubin Urine Urobilinogen Ur Leukocyte Esterase Urine Glucose COVID-19 Source SARS-CoV-2 (PCR) 06/08/21 06/08/21 06:51 06:51 WBC RBC Hgb Hct MCV MCH MCHC RDW Plt Count MPV Immature Gran % Neutrophils % Band Neutrophils % Lymphocytes % Atypical Lymphs % Monocytes % Eosinophils % Basophils % Metamyelocytes % Myelocytes % Promyelocytes % Other Cells % Nucleated RBC % Absolute Neutrophils Absolute Lymphocytes Absolute Monocytes Absolute Eosinophils Absolute Basophils RBC Morphology Polychromasia Hypochromasia Poikilocytosis Basophilic Stippling Anisocytosis Microcytosis Macrocytosis Spherocytes Tear Drop Cells Ovalocytes Stomatocytes [place] Bodies Victor Cells/Echinocytes Acanthocytes (Spur) Schistocytes APTT 42.5 H D D-Dimer Sodium Potassium Chloride Carbon Dioxide Anion Gap BUN Creatinine Estimated GFR/1.73 m2 Glucose Hemoglobin A1c Calcium Magnesium Total Bilirubin AST ALT Alkaline Phosphatase Troponin I < 0.05 C-Reactive Protein NT-Pro-B Natriuret Pep 74 Total Protein Albumin Triglycerides Total Cholesterol LDL Cholesterol, Calc HDL Cholesterol Lipase Procalcitonin Urine Color Urine Clarity Urine pH Ur Specific [place] Urine Protein Urine Ketones Urine Blood Urine Nitrite Urine Bilirubin Urine Urobilinogen Ur Leukocyte Esterase Urine Glucose COVID-19 Source SARS-CoV-2 (PCR)
[2021-06-08] MEDS: Pramipexole 0.5 MG TAB PO (12:24)
[2021-06-08] MEDS: Topiramate 50 MG TAB 25 MG PO (12:24)
[2021-06-08] MEDS: DULoxetine 30 MG CAP 60 MG PO (12:25)
[2021-06-08] MEDS: Gabapentin 300 MG CAP PO (12:25)
[2021-06-08] MEDS: Magnesium Oxide 400 MG TAB PO (12:26)
[2021-06-08] MEDS: Losartan 25 MG TAB 12.5 MG PO (12:26)
[2021-06-08] MEDS: Aspirin E.C. 81 MG TABEC PO (12:26)
[2021-06-08] MEDS: buPROPion-CR 150 MG TABCR PO (12:27)
[2021-06-08] MEDS: Isosorbide Mononitrate 30 MG TABCR PO (12:27)
[2021-06-08] MEDS: Sucralfate 1 GM TAB PO ×2 (12:27→16:19)
[2021-06-08] MEDS: Metoprolol CR 50 MG TABCR 200 MG PO (12:27)
[2021-06-08] MEDS: Insulin Aspart 300 UNITS/3 ML PEN SC ×2 (12:28→16:48)
[2021-06-08] MEDS: Pantoprazole 40 MG VIAL IVP (14:49)
--- NOTE | 2021-06-08 16:26 | DSE_ITS ---
Date of service: 06/08/21 Time of Service: 16:26 DS: Diagnosis Discharge Diagnosis (1) Abscess of right groin: Status: Acute (2) Unstable angina: Status: Suspected (3) Diabetes mellitus, type II: Status: Chronic (4) Atherosclerotic cardiovascular disease: Status: Acute (5) Hypertension: Status: Chronic (6) Tobacco abuse: Status: Chronic (7) Dental infection: Status: Acute Discharge Plan Disposition Patient Disposition: [facility] Condition: Stable Discharge Details Reason For Visit: Chest Pain Admit Date/Time: 06/07/21 15:50 Admit Provider: Magnolia Ann Attending Provider: Magnolia Ann Primary Care Provider: Coni Lim V Hospital Course Hospital Course: Mr Coe is a 55 year old male with PMHx of CAD s/p stents x 5 in total (2 in 2011 (mLAD and pOM1), x 1 in 2013 to LAD, x1 to RCA in 2017, and one more that I am unable to clarify) with mention of unstable angina in his chart, as well as H/o NIDDM2, paroxysmal tachycardia, TIA, HTN, hyperlipidemia, GERD, and who presented to [facility] ED c/o L-sided chest pain radiating to the jaw which did eventually resolve with nitroglycerin. The patient states that he had woken up with substernal chest discomfort which became heaviness when he got up. It radiated to the L jaw and shoulder, was accompanied by dizziness, palpitations, shortness of breath, and nausea. It got better with rest but did not go away entirely until arrival to the ED. The patient states he has been noticing palpitations a lot in the last couple of weeks and feels like they might be related to what is going on with his teeth. He states that he knows that his teeth are infected, and a couple of them broke two weeks ago. Since then, he describes low grade fevers at home. 2-3 days ago he notices a boil in his right groin which is now more swollen. He also noticed that his penis got more swollen at the same time. He is concerned about this infection which he thinks may be involving his whole body now and that his chest pain is connected to all of it. In the ED, the patient has had two negative troponins, and his EKG was un changed. Unstable angina was suspected. He was initiated on aspirin, plavix, and heparin gtt. The patient was accepted in transfer to [facility] cardiology service for the following day by Dr Hodgson for a cardiac cath. Of note, the patient had a cardiac cath in 02/2019 which revealed no obstructive leasions to explain resting pain at that time. Coronary vasospasm was suspected at that time and medical management was recommended. During this hospitalization his 3rd troponin was negative. He had no further CP. He did have a temp of 38.3 C and was started on Zosyn. CT of the groin showed no consolidating fluid collection. General surgery was consulted and felt there was no indication for I&D. He will be transferred as planned to [facility] for further cardiac care. The determination will be made on when to perform cardiac catheterization in light of the recent fever and active cellulitis/possibly developing abscess. Home Meds and New Rx's Prescriptions: Continued metoprolol succinate 200 mg tablet extended release 24 hr 200 mg PO DAILY Qty: 90 RF: 6 ranolazine 500 mg tablet extended release 12 hr 500 mg PO BID Qty: 60 RF: 3 prochlorperazine maleate 10 mg Tablet 10 mg PO Q8H PRNRF: 0 losartan 25 mg Tablet 12.5 mg PO DAILY RF: 0 gabapentin 300 mg Capsule 300 mg PO TID RF: 0 duloxetine [Cymbalta] 60 mg Capsule,Delayed Release(Dr/Ec) 60 mg PO BID RF: 0 hydroxyzine pamoate 50 mg capsule 25 mg PO Q4H PRN Qty: 90 RF: 6 pramipexole [Mirapex] 0.5 mg tablet 0.5 mg PO .2 AM AND 1 HS RF: 0 aspirin [Adult Aspirin Regimen] 81 mg tablet,delayed release (DR/EC) 81 mg PO DAILY RF: 0 sucralfate [Carafate] 1 gram tablet 1 gm PO QACHS RF: 0 albuterol sulfate [Ventolin HFA] 90 mcg/actuation HFA aerosol inhaler 2 puff IH Q6H PRNRF: 0 simethicone [Gas Relief (simethicone)] 80 mg tablet,chewable 80 mg PO BID-QID PRNRF: 0 metformin [Glucophage XR] 500 mg tablet extended release 24 hr 1,000 mg PO DAILY RF: 0 colchicine 0.6 mg tablet 0.6 mg PO BID PRNRF: 0 docusate sodium [Colace] 100 mg capsule 100 mg PO BID PRNRF: 0 polyethylene glycol 3350 [Miralax] 17 gram/dose powder 17 gm PO DAILY PRNRF: 0 isosorbide mononitrate 30 mg tablet extended release 24 hr 30 mg PO DAILY Qty: 90 RF: 3 nitroglycerin [Nitrostat] 0.4 MG tablet, sublingual 0.4 mg Sublingual PRN PRNRF: 0 cyclobenzaprine 10 MG tablet 10 mg PO HS RF: 0 rosuvastatin [Crestor] 10 MG tablet 20 mg PO DAILY RF: 0 bupropion HCl 150 MG tablet extended release 12 hr 150 mg PO BID RF: 0 pantoprazole 40 MG tablet,delayed release (DR/EC) 40 mg PO BID RF: 0 No Action topiramate 25 mg tablet 25 mg PO QAM RF: 0 albuterol sulfate [Ventolin HFA] 90 mcg/actuation HFA aerosol inhaler 90 mcg INHALATION PRN PRNRF: 0 topiramate 25 mg tablet 50 mg PO QPM RF: 0 Discharge Instructions Stand Alone Forms: Nursing Discharge Form Activity:: BR with bathroom privileg Equipment/Supplies:: No Equipment Needed Diet:: NPO after MN Discharge Orders Discharge Orders: Discharge Order (Routine); Ordered 06/08/21 Ordered By: Graham Hendricks DS: Summary Time Spent with Patient providing and/or coordinating discharge services: Greater than 30 minutes Status at Discharge Functional status at discharge: independent ambulation Overall status at discharge: patient is not back to baseline Mental Status: mental status grossly normal Speech and Movement: speech and movement normal Mood: congruent mood Affect: normal affect Exam Narrative Exam Narrative: General: Pleasant middle-aged male who has a cough, A&Ox3, does not look toxic Neurological: A&Ox3,no focal deficits Psychiatric: Appropriate speech pattern/content Skin: R inguinal erythema and induration contiguous with penile edema HEENT: Atraumatic, normocephalic, EOMI, dry MM, poor dentition and dental hygiene, clear oropharynx, no submandibular or cervical lymphadenopathy, gointer or JVD Cardiovascular: RRR,no m/r/g Lungs: CTAB, coughs occasionally Gastrointestinal: soft, nontender, nondistended Genitourinary: See skin Extremities: trace edema, no clubbing/cyanosis, 1+ pedal pulses B, no lesions on B feet Psych Mental Status: mental status grossly normal Speech and Movement: speech and movement normal Mood: congruent mood Affect: normal affect DS: Data Vitals/I&O Vitals and I&O: Vital Signs Temperature 36.3 C L 06/08/21 16:07 Temperature Source Tympanic 06/08/21 16:07 Pulse 71 06/08/21 16:07 Pulse Rhythm Regular 06/08/21 09:29 Pulse 93 H 06/07/21 15:35 Respiratory Rate 17 06/08/21 16:07 Respiratory Effort Non-Labored 06/08/21 09:29 Respiratory Depth Normal 06/08/21 09:29 Respiratory Pattern Normal 06/08/21 09:29 Blood Pressure 109/67 06/08/21 16:07 Blood Pressure Mean 82 06/07/21 15:35 Blood Pressure Position Sitting 06/07/21 11:09 Pulse Oximetry 98 06/08/21 16:07 Oxygen Delivery Method Room Air 06/08/21 16:07 Oxygen Flow Rate 0 06/08/21 16:07 Pain Level 0 06/08/21 16:07 Intake & Output 06/07/21 06/08/21 06/08/21 23:59 11:59 23:59 Intake Total 780 / 780 186.758 / 186.758 Output Total 1400 / 1400 800 / 800 Balance -620 / -620 -613.242 / -613.242 Weight 115 kg 114.396 kg Intake: IV 300 / 300 186.758 / 186.758 Oral 480 / 480 Output: Urine 1400 / 1400 750 / 750 Emesis 50 / 50 Other: Urine Color Straw Yellow Urine Appearance Clear Clear Urine Odor Strong None Voiding Methods Urinal Urinal Data Completed and Pending Labs on day of discharge: Labs from last 24 hours 06/08/21 06/08/21 06/08/21 06:51 06:51 06:51 WBC RBC Hgb Hct MCV MCH MCHC RDW Plt Count MPV APTT 42.5 H D D-Dimer Sodium Potassium Chloride Carbon Dioxide Anion Gap BUN Creatinine Estimated GFR/1.73 m2 Glucose Hemoglobin A1c 9.7 H Calcium Magnesium Troponin I < 0.05 C-Reactive Protein NT-Pro-B Natriuret Pep 74 Triglycerides Total Cholesterol LDL Cholesterol, Calc HDL Cholesterol Procalcitonin Urine Color Urine Clarity Urine pH Ur Specific Stanton Urine Protein Urine Ketones Urine Blood Urine Nitrite Urine Bilirubin Urine Urobilinogen Ur Leukocyte Esterase Urine Glucose SARS-CoV-2 (PCR) 06/08/21 06/08/21 06/07/21 06:51 06:51 22:42 WBC 9.29 RBC 4.95 Hgb 14.1 Hct 41.9 MCV 84.6 MCH 28.5 MCHC 33.7 RDW 12.9 Plt Count 207 MPV 11.0 APTT 27.2 D-Dimer Sodium 137 Potassium 3.8 Chloride 100 Carbon Dioxide 25.7 Anion Gap 11.3 H BUN 13 Creatinine 0.9 Estimated GFR/1.73 m2 >= 60.00 Glucose 306 H Hemoglobin A1c Calcium 8.9 Magnesium 1.7 L Troponin I C-Reactive Protein NT-Pro-B Natriuret Pep Triglycerides 206 H Total Cholesterol 237 H LDL Cholesterol, Calc 161 H HDL Cholesterol 35 L Procalcitonin Urine Color Urine Clarity Urine pH Ur Specific Stanton Urine Protein Urine Ketones Urine Blood Urine Nitrite Urine Bilirubin Urine Urobilinogen Ur Leukocyte Esterase Urine Glucose SARS-CoV-2 (PCR) 06/07/21 06/07/21 06/07/21 21:05 21:05 21:05 WBC RBC Hgb Hct MCV MCH MCHC RDW Plt Count MPV APTT 27.2 D D-Dimer Sodium Potassium Chloride Carbon Dioxide Anion Gap BUN Creatinine Estimated GFR/1.73 m2 Glucose Hemoglobin A1c Calcium Magnesium Troponin I C-Reactive Protein 8.14 H NT-Pro-B Natriuret Pep Triglycerides Total Cholesterol LDL Cholesterol, Calc HDL Cholesterol Procalcitonin < 0.1 Urine Color Urine Clarity Urine pH Ur Specific Stanton Urine Protein Urine Ketones Urine Blood Urine Nitrite Urine Bilirubin Urine Urobilinogen Ur Leukocyte Esterase Urine Glucose SARS-CoV-2 (PCR) 06/07/21 06/07/21 06/07/21 21:05 20:30 17:38 WBC RBC Hgb Hct MCV MCH MCHC RDW Plt Count MPV APTT 38.9 H D-Dimer Sodium Potassium Chloride Carbon Dioxide Anion Gap BUN Creatinine Estimated GFR/1.73 m2 Glucose Hemoglobin A1c Calcium Magnesium Troponin I < 0.05 C-Reactive Protein NT-Pro-B Natriuret Pep Triglycerides Total Cholesterol LDL Cholesterol, Calc HDL Cholesterol Procalcitonin Urine Color Yellow Urine Clarity Clear Urine pH 6.5 Ur Specific Stanton 1.025 Urine Protein Negative Urine Ketones Negative Urine Blood Negative Urine Nitrite Negative Urine Bilirubin Negative Urine Urobilinogen 1.0 H Ur Leukocyte Esterase Negative Urine Glucose >=1000 H SARS-CoV-2 (PCR) 06/07/21 06/07/21 15: 12:34 WBC RBC Hgb Hct MCV MCH MCHC RDW Plt Count MPV APTT D-Dimer 845 H Sodium Potassium Chloride Carbon Dioxide Anion Gap BUN Creatinine Estimated GFR/1.73 m2 Glucose Hemoglobin A1c Calcium Magnesium Troponin I C-Reactive Protein NT-Pro-B Natriuret Pep Triglycerides Total Cholesterol LDL Cholesterol, Calc HDL Cholesterol Procalcitonin Urine Color Urine Clarity Urine pH Ur Specific Stanton Urine Protein Urine Ketones Urine Blood Urine Nitrite Urine Bilirubin Urine Urobilinogen Ur Leukocyte Esterase Urine Glucose SARS-CoV-2 (PCR) Negative 06/07/21 21:18 Blood Blood Culture - Pending 06/07/21 21:05 Blood Blood Culture - Pending Preliminary micro results at discharge 06/07/21 21:18 Blood Culture - Pending Blood 06/07/21 21:05 Blood Culture - Pending Blood [facility] Medical History Abdominal hernia Abdominal pain Acute diarrhea Atypical angina CAD (coronary artery disease) Cervicalgia Cholelithiasis a. cholecystectomy Chronic pain Depression Diabetes Diverticulitis Duodenitis Family history of colon cancer Gastroparesis diabeticorum Gastropathy Headache Hematuria Hemiplegic migraine With intractable migraine, so stated, without mention of status migrainosus Hip pain, right History of TIAs Hypotensive episode Knee pain, left Left cervical radiculopathy Leg pain, right Myalgia Myocardial infarction, inferior wall Palpitations Peripheral neuropathy Postural lightheadedness Reaction, situational RLS (restless legs syndrome) Shoulder pain, left Smoker Syncope Tachycardia, paroxysmal Surgical History History of cholecystectomy History of colonoscopy History of coronary artery stent placement History of knee surgery Social History Smoking/Tobacco Use Status: Current every day Tobacco Type: cigarettes Smoking risk assessment performed?: Yes Alcohol Intake: current Alcohol Intake frequency: holidays/special occasions only Drug use: Daily Substance use type: marijuana Details: 2-3 joints/day Household members: spouse Housing: house Number of Children: 2 current occupation: Disabled What type of physical activity do you participate in: walking, independent ambulation and additional Details: work at home (outside work) Do you feel safe at home: Yes Do you feel safe in your relationship?: Yes
--- NOTE | 2021-06-08 17:29 | DI.VRAD_ITS ---
PROCEDURE INFORMATION: Exam: US Right Non-Vascular Joint or Other Extremity Structure Exam date and time: 06/08/2021 12:00 AM Age: 56 years old Clinical indication: Mass or lump; Other: Groin TECHNIQUE: Imaging protocol: Right US joint or other nonvascular extremity structure or structures. Real-time ultrasound with image documentation. Limited study. Exam focused on the lower extremity in the region of clinical interest. COMPARISON: CT PELVIC WO 06/07/2021 9:35 PM FINDINGS: Soft tissues: Right groin was evaluated in the region of the soft tissue abnormality. There is a complex fluid collection that extends from the cutaneous tissues in the right anterior perineum extending to the right inguinal region and scrotum. This involves an area measuring approximately 4.7 cm in AP dimension. It is poorly defined and is associated with boggy edema in the surrounding subcutaneous tissues. This correlates with the findings on the CT scan of 06/07/2021 and has an appearance most consistent with a developing abscess. IMPRESSION: 1. Elongated poorly defined subcutaneous fluid collection suspicious for a developing abscess in the right perineum extending into the right groin and right scrotum. Dictated and Authenticated by: Comfort Bonilla MD. Ordering:VIANEY Merida MD
== END 2021-06-08 17:39 | disposition short-term general hospital (02) ==
LOC: ER 11:13 → MS 16:50
PROVIDERS: Internal Medicine; Admitting Provider Internal Medicine; Emergency Provider Physician Assistant; PCP Family Medicine; Visit Provider Internal Medicine
DX: I25.110 Atherosclerotic heart disease of native coronary artery with unstable angina pectoris (principal); F17.210 Nicotine dependence, cigarettes, uncomplicated; I10 Essential (primary) hypertension; L02.214 Cutaneous abscess of groin; K04.7 Periapical abscess without sinus; Z95.5 Presence of coronary angioplasty implant and graft; Z86.73 Personal history of transient ischemic attack (TIA), and cerebral infarction without residual deficits; E78.5 Hyperlipidemia, unspecified; G89.29 Other chronic pain; F32.A Depression, unspecified; Z80.0 Family history of malignant neoplasm of digestive organs; E11.43 Type 2 diabetes mellitus with diabetic autonomic (poly)neuropathy; K31.84 Gastroparesis; E11.42 Type 2 diabetes mellitus with diabetic polyneuropathy; G25.81 Restless legs syndrome; Z20.822 Contact with and (suspected) exposure to COVID-19; I47.9 Paroxysmal tachycardia, unspecified; K21.9 Gastro-esophageal reflux disease without esophagitis; R00.2 Palpitations; R50.9 Fever, unspecified; Z79.84 Long term (current) use of oral hypoglycemic drugs; R60.0 Localized edema; I25.2 Old myocardial infarction; R07.9 Chest pain, unspecified
CPT/HCPCS: 36415; 76882; 80048; 80053; 80061; 83690; 84145; 85027; 87040; 87635; 93005; 96365; 96376; 99213; 99291; 71045; 72192; 81003; 83036; 83735; 83880; 84484; 85025; 85379; 85730; 86140; 93010; 99217; 99220; G0378; J2405; J2543

== ENCOUNTER → 2021-07-23 11:37 | Outpatient (BNVA) | payer MEDICARE, SELFPAY | PROVIDERS: PCP Family Medicine; Referring Provider Family Medicine; Visit Provider Internal Medicine Cardiovascular Disease | DX: I25.10 Atherosclerotic heart disease of native coronary artery without angina pectoris (principal); I10 Essential (primary) hypertension; E78.5 Hyperlipidemia, unspecified; F17.210 Nicotine dependence, cigarettes, uncomplicated | CPT/HCPCS: 99214; 99213 ==

== ENCOUNTER → 2021-09-24 10:53 | Outpatient (BNVA) | payer OTHER, SELFPAY | PROVIDERS: PCP Family Medicine; Referring Provider Family Medicine; Visit Provider Surgery | DX: Z12.11 Encounter for screening for malignant neoplasm of colon (principal); Z12.12 Encounter for screening for malignant neoplasm of rectum; Z80.0 Family history of malignant neoplasm of digestive organs; E11.9 Type 2 diabetes mellitus without complications ==

== ENCOUNTER 2021-09-27 01:18 | Outpatient (CLI) | payer OTHER, SELFPAY ==
[2021-09-27 11:48] LABS: Source Nasal/Nares
[2021-09-27 14:08] LABS: COVID-19 PCR Negative (Negative)
== END 2021-09-27 01:19 | disposition home or self-care (01) ==
LOC: LBO 01:18
PROVIDERS: PCP Family Medicine; Visit Provider Surgery
DX: Z20.822 Contact with and (suspected) exposure to COVID-19 (principal); Z01.818 Encounter for other preprocedural examination
CPT/HCPCS: 87635

== ENCOUNTER 2021-09-30 11:08 | Day surgery (SDC) | payer OTHER, SELFPAY ==
--- NOTE | 2021-09-30 06:51 | W.COLOREPORT ---
Colonoscopy Report Date of procedure: 09/30/21 Pre-op diagnosis general: Colon Cancer Screening, Family hsitory of colon cancer Post-op diagnosis procedure note: other (Multiple polyps and diverticulosis) Procedure: Colonoscopy with polypectomy Surgeon: Paloma Martinez Anesthesia Type: General:No Airway (Nery Walsh, DYLAN) Estimated blood loss (mL): 5 Pathology: other (ascending polyp x5,descending polyp X1, sigmoid polyps x3 and sigmoid polyp) Complications: None Disposition: same day Indications: Mr. Coe is a pleasant 56-year-old gentleman who is here to discuss a screening colonoscopy. He had a colonoscopy done in 2008 for GI bleed and was found to have some acute ileitis. He has a family history of colon cancer in his father who was in his late 40s early 50s. Romeo has not had any changes in bowel habits, melena, hematochezia or weight loss. He does have a history of cardiovascular disease with an TX back in 2012. He has two cardiac stents. He had a recent cath for some angina which found some microvascular angina. His stents were open. His antianginal medications were titrated and he has not had any more chest pain over the last 2 months. We discussed the colonoscopy procedure in detail as well as the risks and the benefits. Risks, benefits and complications have been reviewed. Complications include but are not limited to bleeding, pain, perforation, missed small lesion/polyp, sore throat, aspiration and adverse reaction to the medications. Questions were entertained and answered to their satisfaction and they wished to proceed. No guarantees were given or implied. Proceed with colonoscopy under sedation Prep: Miralax/Dulcolax Procedure Start Time: 12:19 Procedure End Time: 12:50 Retraction Time: 19 minutes Findings: Multiple polyps, all < 1 cm in size Moderate acevedo-diverticulosis Procedure Description: After informed consent was obtained the patient was taken to the procedure room and placed in a left decubitous position. Monitors were applied and a time out was done. The patients name, date of , procedure, allergies to medications and metal in their body was reviewed. The patient was then sedated. Once sedated and comfortable a rectal exam was done. External exam was normal. Internal exam revealed a normal sphincter tone and no palpable masses. The prostate felt smooth and slightly enlarged. The scope was then introduced and retro-flexed. No internal hemorrhoids, polyps or masses were identified on retro-flexion. The scope was then advanced to the cecum without difficulty. The ileocecal valve and appendiceal orifice were identified. The prep was adequate. The scope was then slowly retracted over 19 minutes back into the rectum. Polyps were removed with cold forceps in the ascending colon x1, descending colon x5, sigmoid colon x3 and rectum x1. There was mild right sided diverticulosis and moderate left sided diverticulosis noted. The scope was removed and the patient was woken up and taken back to Same day surgery in stable condition. The patient tolerated the procedure well and there were no immediate complications. Follow up: The patient should follow up in 3-5 years unless they develop changes in bowel habits or other new gastrointestinal complaints.
--- NOTE | 2021-09-30 06:52 | W.PM.DSUDISC ---
Discharge Plan Disposition Patient Disposition: HOME Condition: Good Discharge Details Reason For Visit: Colonoscopy Attending Provider: Paloma Martinez Primary Care Provider: Coni Lim V Home Meds and New Rx's Prescriptions: Continued metoprolol succinate 200 mg tablet extended release 24 hr 200 mg PO DAILY Qty: 90 RF: 6 ranolazine 500 mg tablet extended release 12 hr 500 mg PO BID Qty: 60 RF: 3 prochlorperazine maleate 10 mg Tablet 10 mg PO Q8H PRNRF: 0 losartan 25 mg Tablet 12.5 mg PO DAILY RF: 0 gabapentin 300 mg Capsule 300 mg PO TID RF: 0 duloxetine [Cymbalta] 60 mg Capsule,Delayed Release(Dr/Ec) 60 mg PO BID RF: 0 hydroxyzine pamoate 50 mg capsule 25 mg PO Q4H PRN Qty: 90 RF: 6 pramipexole [Mirapex] 0.5 mg tablet 0.5 mg PO .2 AM AND 1 HS RF: 0 aspirin [Adult Aspirin Regimen] 81 mg tablet,delayed release (DR/EC) 81 mg PO DAILY RF: 0 sucralfate [Carafate] 1 gram tablet 1 gm PO QACHS RF: 0 albuterol sulfate [Ventolin HFA] 90 mcg/actuation HFA aerosol inhaler 2 puff IH Q6H PRNRF: 0 simethicone [Gas Relief (simethicone)] 80 mg tablet,chewable 80 mg PO BID-QID PRNRF: 0 colchicine 0.6 mg tablet 0.6 mg PO PRN PRNRF: 0 docusate sodium [Colace] 100 mg capsule 100 mg PO BID PRNRF: 0 polyethylene glycol 3350 [Miralax] 17 gram/dose powder 17 gm PO DAILY PRNRF: 0 metformin [Glucophage XR] 500 mg tablet extended release 24 hr 500 mg PO BID RF: 0 isosorbide mononitrate 30 mg tablet extended release 24 hr 30 mg PO DAILY Qty: 90 RF: 3 Jardiance 25 mg tablet 25 mg PO DAILY RF: 0 nitroglycerin [Nitrostat] 0.4 MG tablet, sublingual 0.4 mg Sublingual PRN PRNRF: 0 cyclobenzaprine 10 MG tablet 10 mg PO HS RF: 0 rosuvastatin [Crestor] 10 MG tablet 20 mg PO DAILY RF: 0 bupropion HCl 150 MG tablet extended release 12 hr 150 mg PO BID RF: 0 pantoprazole 40 MG tablet,delayed release (DR/EC) 40 mg PO BID RF: 0 topiramate 25 mg tablet 50 mg PO BID RF: 0 Discharge Instructions Instructions: Diverticulosis (DC), Colorectal Polyps (DC) Additional Instructions: Findings: multiple polyps Diverticulosis Follow up: 3-5 years Please call if you develop: fevers >101.5 Nausea or Vomiting Abdominal pain that is not transient Rectal bleeding that is more then a tbsp A hard abdomen and inability to pass gas DAY SURGERY UNIT POST ENDOSCOPY INSTRUCTIONS Instructions for everyone who is given Anesthesia: For your safety, please do the following for the next 24 Hours: a. Do not drive or operate dangerous equipment b. Do not drink alcohol beverages or use any recreational drugs for the first 24 hours or while taking pain medications. The medications in your body may have a reaction that can be dangerous. c. Do not make any important decisions or sign any important papers 1. Generally there are no restrictions on your activity after a day or so has gone by, but you may feel a bit fatigued for a few days. 2. After you arrive home you may have a light meal and return to a normal diet as you can tolerate it without feeling sick to your stomach. 3. After surgery, you may feel pain or discomfort. This should be only transient, but if it persists please contact your doctor. 4. If there are any questions regarding the findings of your procedure, please feel free to contact your doctor. 6. If you are unable to contact your doctor with a problem, contact the hospital at [phone]. 7. Continue all your regular medications unless directed otherwise. I understand the above instructions and have no questions. Signature of Patient or Responsible Adult Escort Date/Time Name of Responsible Adult Escort Signature of Nurse Date/Time Activity:: Activity as Tolerated Diet:: As Tolerated Discharge Orders Discharge Orders: Discharge Order (Routine); Ordered 09/30/21 Ordered By: Paloma Martinez
[2021-09-30 11:32] VITALS: BP 123/89; PULSE 101; RESP 16; TEMP 36.5; O2SAT 100
--- NOTE | 2021-09-30 11:44 | ANES.PREOP_ITS ---
General Info Date of Service Date Performed: 09/30/21 Height: 5 ft 10 in Weight: 116.7 kg Body Mass Index (BMI): 36.9 Surgical Procedure: Operation Date: 09/30/21 12:05 Proposed Procedures Side Surgeon p Colonoscopy Paloma Martinez MD Meds Allergies and Home Medications Allergies Allergy/AdvReac Type Severity Reaction Status Date / Time thallium-201 [Thallium-201] Allergy Severe Pt went to Verified 09/30/21 11:[place] [facility] [place]iprofloxacin Allergy Intermediate Verified 09/30/21 11:31 lisinopril AdvReac cough Verified 09/30/21 11:31 Paper tape Allergy Intermediate rash Uncoded 09/26/21 15:35 Home Medication Medication Instructions Recorded cyclobenzaprine 10 mg PO HS 12/31/12 nitroglycerin [Nitrostat] 0.4 mg SUBLINGUAL PRN PRN 12/31/12 rosuvastatin [Crestor] 20 mg PO DAILY 12/31/12 bupropion HCl 150 mg PO BID 02/14/14 pantoprazole 40 mg PO BID 02/14/14 albuterol sulfate 90 mcg/actuation 2 puff IH Q6H PRN 12/26/19 aerosol inhaler aspirin 81 mg tablet,delayed 81 mg PO DAILY 12/26/19 release hydroxyzine pamoate 50 mg capsule 25 mg PO Q4H PRN #90 tab-cap 12/26/19 pramipexole 0.5 mg tablet 0.5 mg PO .2 AM AND 1 HS 12/26/19 simethicone 80 mg chewable tablet 80 mg PO BID-QID PRN 12/26/19 sucralfate 1 gram tablet 1 gm PO QACHS 12/26/19 isosorbide mononitrate 30 mg 30 mg PO DAILY #90 tab 02/10/20 tablet,extended release 24 hr colchicine 0.6 mg tablet 0.6 mg PO BID PRN tab 11/23/20 docusate sodium 100 mg capsule 100 mg PO BID PRN 11/23/20 metoprolol succinate 200 mg 200 mg PO DAILY #90 tab 11/23/20 tablet,extended release 24 hr polyethylene glycol 3350 17 17 gm PO DAILY PRN 11/23/20 gram/dose oral powder ranolazine 500 mg tablet,extended 500 mg PO BID #60 tab 11/23/20 release,12 hr duloxetine [Cymbalta] 60 mg PO BID 12/24/20 gabapentin 300 mg PO TID 12/24/20 losartan 12.5 mg PO DAILY 12/24/20 prochlorperazine maleate 10 mg PO Q8H PRN 12/24/20 topiramate 50 mg PO QPM 06/07/21 empagliflozin 25 mg tablet 25 mg PO DAILY 07/23/21 metformin 500 mg tablet,extended 500 mg PO BID tab 07/23/21 release 24 hr Current Visit Medications: Current Medications Generic Name Dose Route Start Last Admin Trade Name Freq PRN Reason Stop Dose Admin Hyoscyamine Sulfate 0.125 mg 09/30/21 06:52 Hyoscyamine 0.125 Mg Sl/Oral/Chew SL DIRECTED PRN Ringer's Solution 1,000 mls @ 80 mls/hr 09/30/21 06:00 IV 10/27/21 23:59 [facility] IV Miscellaneous Supplies 1 each 09/30/21 06:00 Iv Access IV 10/27/21 23:59 DIRECTED SONIA Ondansetron HCl 4 mg 09/30/21 06:52 Ondansetron 4 Mg/2 Ml Vial IVP Q4H PRN PRN Nausea / Vomiting Sodium Chloride 0 ml 09/30/21 06:00 Normal Saline Flush 10 Ml Syr IV 10/27/21 23:59 PRN PRN Sodium Chloride 0 ml 09/30/21 06:00 Normal Saline 10 Ml Vial IJ 10/27/21 23:59 DIRECTED PRN Sterile Water 0 ml 09/30/21 06:00 Water,Injection,Sterile 10 Ml Vial IJ 10/27/21 23:59 DIRECTED PRN PFSH Active Problems Active Problems: Problem Status Onset Code CAD (coronary artery disease) I25.10 Tobacco abuse Z72.0 History of TIA (transient ischemic attack) Z86.73 Obesity E66.9 Diabetes mellitus, type II E11.9 Hypertension I10 Hyperlipidemia E78.5 Atherosclerotic cardiovascular disease I25.10 Atypical angina I20.8 Screening for colon cancer Z12.11 Encounter for colorectal cancer screening Z12.11, Z12.12 Medical History Medical History (Updated 09/30/21 @ 11:27 by Wyatt Barajas) Abdominal pain Abscess of right groin Acute diarrhea Asthma Cervicalgia Cholelithiasis a. cholecystectomy Chronic pain COPD (chronic obstructive pulmonary disease) Dental infection Depression Discharge planning issues Diverticulitis Duodenitis Family history of colon cancer Fibromyalgia Gastroparesis diabeticorum Gastropathy GERD (gastroesophageal reflux disease) H/O: gout Headache Hematuria Hemiplegic migraine With intractable migraine, so stated, without mention of status migrainosus Hip pain, right Hypomagnesemia Hypotensive episode Ileitis Knee pain, left Left cervical radiculopathy Leg pain, right Myalgia Myocardial infarction, inferior wall 2013 Palpitations Peripheral neuropathy Postural lightheadedness Reaction, situational RLS (restless legs syndrome) Shoulder pain, left Smoker Syncope Tachycardia, paroxysmal Thyroid nodule Surgical History Surgical History (Updated 09/30/21 @ 11:31 by Wyatt Barajas) H/O surgical procedure a. cath and stents b. cholecystectomy c. back surgery History of arthroscopic surgery of shoulder History of cholecystectomy History of colonoscopy History of coronary artery stent placement History of knee surgery Hx of discectomy Hx of tonsillectomy Tobacco Smoking/Tobacco Use Status: Current every day Tobacco Type: cigarettes Smoking cigarettes per day: 1 Alcohol Alcohol Intake: current Substance Use Substance use: Daily Substance use type: marijuana Details: 2-3 joints/day Vital Signs and Lab Results Vital Signs Most Recent Vital Signs in EMR: Most Recent Vital Signs Temp Pulse Resp BP Pulse Ox 36.5 C 101 H 16 123/89 100 09/30/21 11:32 09/30/21 11:32 09/30/21 11:32 09/30/21 11:32 09/30/21 11:32 Lab Results Blood Type / Crossmatch: No Data to Display Complete Blood Count: No Data to Display Complete Metabolic Panel: No Data to Display Liver Function Panel: No Data to Display Coagulation Panel: No Data to Display Cardiac Panel: No Data to Display Arterial Blood Gas: No Data to Display Venous Blood Gas: No Data to Display Pancreas Panel: No Data to Display Thyroid Panel: No Data to Display Infectious Disease: Coronavirus (COVID-19)(PCR) Negative (Negative) 09/27/21 09:23 09/27/21 Coronavirus 2019 Source Nasal/Nares 09/27/21 09:23 09/27/21 Blood Cultures: No Data to Display Toxicology Panel: No Data to Display Imaging and Studies Imaging and Studies Study information below may be from another EMR and interpreted by another provider. Please see original notes in EMR for more complete details. EKG Summary: Conclusion Sinus rhythm...normal P axis, V-rate 60- 99 06/07/21 Stress Test Summary: MPI Conclusion Ejection fraction was 60% with stress. There were no wall motion abnormalities. No evidence of fixed or reversible ischemia on the imaging portion of the exam. This represents a normal SPECT stress test.01/02/20 Echocardiogram Summary: 06/09/21 EF 55% no significant valve disease Anesthesia Assessment and Plan Anesthesia History Personal History: No History of Anesthesia Complications Family History: No Family History of Anesthesia Complications Exercise Tolerance Exercise Tolerance: Metabolic Equivalents<4 Pertinent Negatives Pertinent Negatives: No Symptoms of GERD (Takes Protonix), No Major Cardiovascular Symptoms or Complaints (No cardiac issues since 05/2021, cath negative at that time with patent stents), No Major Pulmonary Symptoms or Complaints (Smoker) and No History of CVA/TIA Cardiac & Pulmonary Exam Cardiac Exam: Normal S1/S2 Heart Sounds Pulmonary Exam: Clear Bilateral Breath Sounds Implantable Cardiac Device Does patient have a Pacemaker or an ICD?: No Airway Exam Known Difficult Airway: No Mallampati Class: 2 Mouth Opening: Normal (> 3cm) Thyromental Distance: Greater than 3 cm Facial Hair: Full [place] Neck Range of Motion: Known Cervical Instability or radiculopathy (Left) Neck Circumference: Thick Teeth Condition: Generalized Poor Dentition, Loose or Chipped (Many broken teeth, patient states all are loose), Dental Caries and Advised tooth loss possible given current condition (indicate tooth) (All) ASA Classification ASA Score: ASA 3 Emergency Case?: No NPO Status NPO Status: NPO Clears >2 hours, Solids >8 hours Anesthesia Plan Resuscitation Status: Full Code Anesthesia Technique: General Anesthesia Airway Planned: Natural Airway Monitors Used: Standard Monitors Preoperative Comments:: Gluc check 200 at 1205
[2021-09-30 11:47] VITALS: BMI 36.9
[2021-09-30] MEDS: Lactated Ringers 1,000 ML 80 ML IV (12:07)
--- NOTE | 2021-09-30 12:30 | BOWEL_PTH ---
PATIENT: Romeo Coe LOC: [facility] U#:[id number] AGE/SX: 56/M ROOM: RE09/30/[address]: Paloma Martinez MD : [id number] BED: DIS: 09/30/2021 SPEC #: [id number] RECD: 09/30/21 13:25 STATUS: MARIA LUZ RE #: [id number] HILLARY: 09/30/21 12:[address]: Paloma Martinez DEPT: Surgical Specimen RECD BY: Maria Luisa Naranjo ENTERED: 09/30/21 13:27 SP TYPE: Bowel OTHR DR: Coni Lim V Tissues: 1 - BIOPSY BOWEL 2 - BIOPSY BOWEL 3 - BIOPSY BOWEL 4 - BIOPSY BOWEL Procedures: GROSS AND MICRO LEVEL 4 Comments: [id number]
[2021-09-30 13:00] VITALS: BP 123/84; PULSE 93; RESP 20; TEMP 36; O2SAT 95
--- NOTE | 2021-09-30 13:19 | W.ANESPOSTOP ---
Postoperative Evaluation Date, Time and Location Date Performed: 09/30/21 Time Performed: 13:10 Patient Location: Day Surgery Unit Vital Signs Most Recent Imported Vital Signs: Most Recent Vital Signs Temp Pulse Resp BP Pulse Ox 36.0 C L 93 H 20 123/84 95 09/30/21 13:00 09/30/21 13:00 09/30/21 13:00 09/30/21 13:00 09/30/21 13:00 Pain Score Most Recent Pain Score: Most Recent Pain Score Pain Level 0 09/30/21 13:00 Assessment Mental Status: Awake (Alert & Oriented to Patient Baseline) Airway and Respiratory Function: Patent airway with normal (patient baseline) respiratory exam Cardiovascular Function: Hemodynamically Stable Hydration Status: Adequately Hydrated Nausea & Vomiting: No Nausea or Vomiting Pain: Pt. Denies Any Pain Peripheral Nerve Block: Patient did not receive a nerve block
[2021-09-30 13:30] VITALS: BP 126/87; PULSE 85; RESP 16; TEMP 36.3; O2SAT 97
== END 2021-09-30 13:50 | disposition home or self-care (01) ==
LOC: SUR 11:09
PROVIDERS: PCP Family Medicine; Visit Provider Surgery
PROC: 0DJD8ZZ Inspection of Lower Intestinal Tract, Via Natural or Artificial Opening Endoscopic (ICD-10-PCS; CPT 45378; principal; 2021-09-30 12:00)
DX: Z12.11 Encounter for screening for malignant neoplasm of colon (principal); Z80.0 Family history of malignant neoplasm of digestive organs; D12.2 Benign neoplasm of ascending colon; K57.30 Diverticulosis of large intestine without perforation or abscess without bleeding; D12.8 Benign neoplasm of rectum
CPT/HCPCS: 45380; 88305; J2001

== ENCOUNTER 2021-10-21 17:29 | Inpatient (IN) | payer OTHER, SELFPAY ==
[2021-10-21] VITALS (56 sets, daily range): BP systolic 67–165; BP diastolic 22–108; PULSE 87–139; RESP 8–30; TEMP 36.7; O2SAT 92–99
--- NOTE | 2021-10-21 18:00 | RT.EKG_ITS ---
APPROVED REPORT Exam: Resting ECG Reason for Exam: hx of CAD, tachycardic associated with N/V/D Patient Location: E HR:115 bpm ECG Measurements Heart Rate 115 AXIS MS 143 P 49 QRSd 80 QRS 20 QT 336 T -89 QTc 466 Conclusion Sinus tachycardia...rate> 99 Physician: no stemi, slight depression in V3, V4, inverted t wave in III and AvF. no stemi.
--- NOTE | 2021-10-21 18:24 | ED.GENADUL_ITS ---
Discharge Plan Disposition Condition: Improving Discharge Details Chief Complaint: Nausea/Vomit/Diar Admit Date/Time: 10/23/21 10:45 Admit Provider: Juan Whitehead Attending Provider: Juan Whitehead Primary Care Provider: Coni Lim V ED Provider: Shania Jaeger Discharge Instructions Activity:: Activity as Tolerated Equipment/Supplies:: No Equipment Needed Diet:: Resume diabetic and heart healthy diet Discharge Orders Discharge Orders: Discharge Order (Routine); Ordered 10/24/21 Ordered By: Graham Hendricks Discharge Data Discharge Date/Time-TO BE ENTERED AT DEPARTURE: 10/21/21 23:36 Medical Decision Making Patient is a pleasant 56-year-old gentleman presented with chief complaint of nausea, vomiting, diarrhea. Patient reports that symptoms began approximately 1 week ago that he has had about twelve bouts of emesis today. All of these have been nonbloody. He states that he is not able to take any of his medications or keep down any water. He denies any other sick contacts. Is not able to associate with any abnormal p.o. intake. Denies any fevers or chills. Has been having fairly diffuse abdominal discomfort. Past surgical history is pertinent for hernia repair. He reports that one prior to the onset of symptoms he did undergo colonoscopy and states that he did recover without abnormality or difficulty. Contusion patient does have significant cardiac history and he has had some low-grade chest discomfort but this was not abnormal for him. Not actively having any chest pain. Past medical history is pertinent for coronary artery disease, unstable angina, TIA, obesity, type 2 diabetes, hypertension, hyperlipidemia. Reviewed recent note from surgery, patient underwent colonoscopy on 09/24/2021. Reviewed note from the procedure. Patient patient did have polyps removed.. Mild right diverticulosis and moderate left-sided diverticulosis. No complications immediately postoperatively. On exam, patient appears fatigued. He appears dehydrated. Patient is notably cardiac and heart rate of one thirty-nine. Patient is typically on metoprolol and has not been able to take this secondary to his nausea and vomiting. Abdomen is diffusely tender but no focal area of pain. He has hypoactive bowel sounds. He has not been passing flatus. Did have a loose bowel movement today. Has an obese abdomen but is not distended or tympanic. Really concern for gastroenteritis. Patient does have significant cardiac history and with the tachycardia, I am concerned for potential demand ischemia or cardiac event. Will obtain EKG and baseline labs. Plan to hydrate the patient, give antiemetic. Will evaluate for any electrolyte abnormalities, STEPHANIE and demand ischemia. Labs reviewed. Patient has a white count of fourteen.. Concentrated in her CBC with an elevation of his hemoglobin hematocrit. CMP significant for anion gap of 28.8. His creatinine is elevated at 1.4. GFR two. BUN is within normal limits. Glucose two thirty-nine. This is not atypical for the patient. Will add on a lipase as well as a VBG. Unclear about this significant elevation of his anion gap. Will give patient second liter of fluids. He is feeling improved after 4 mg Zofran as well as 1 L of fluids. I am hesitant to fluid overload the patient quickly given his cardiac history. Troponin is within normal limits. His BGL is normal for the patient, unlikely to be DKA. However, considered a more euglycemic DKA, metabolic acidosis with the GI losses. His medication may be inducing a pancreatitis and will assess with imaging and lipase. FINDINGS: Bones/joints: No evidence of fracture. Negative for dislocation. Negative for bony erosion or destructive change. Elbow and wrist are appropriately located. Severe narrowing with sclerosis and osteophytes noted at the 1st carpometacarpal joint. Soft tissues: Negative for soft tissue air. No foreign bodies observed. Soft tissue swelling noted in the proximal forearm. IMPRESSION: No acute osseous abnormality. If symptoms persist, follow-up imaging is advised. Intraperitoneal space: No free air. No significant fluid collection. Vasculature: Unremarkable. No abdominal aortic aneurysm. Lymph nodes: No enlarged lymph nodes. Urinary bladder: Unremarkable as visualized. Reproductive: Unremarkable as visualized. Bones/joints: Spinal degenerative changes. Mild lumbar levoscoliosis. Soft tissues: Unremarkable. IMPRESSION: 1. No acute intra- abdominal or pelvic process. 2. No generalized ileus or bowel obstruction. 3. Scattered colon diverticuli without evidence of diverticulitis. Lipase WNL. VBG pertient for acidosis with pH of 7.14. BGL rechecked, glucose 170. VBG was on the old labs, plan to repeat. I am hesitant to treat for DKA, aside from hydration, as his glucose is not signficantly elevated for him. Plan for admission for acidosis, N/V, generalized weakness. Consulted with hospitalist who agrees to admission . Patient and his family in agreement with this plan. as well. HPI General Date/Time Provider Initiated Documentation: 10/21/21 17:55 . Limitations to Documentation: no limitations . Information obtained by: patient, RN notes reviewed and old records reviewed . History of Present Illness 56 year old M presents to the emergency department with the chief complaint of N/V/D, described as moderate, with intensity rated at 6. Quality is described as aching, and is localized to the abdomen. Patient reports no radiation. Patient started experiencing this week(s) and it has been constant. improves with No relieving factors improve symptom(s), No exacerbating factors reported . Patient notes loss of appetite, malaise and nausea/vomiting; denies chest pain, cough, diaphoresis, fever/chills, headaches, rash and shortness of breath. Patient did receive the following treatments prior to arrival, none Related Data Home Medications Medication Instructions Recorded Confirmed cyclobenzaprine 10 mg tablet 10 mg PO HS PRN 12/31/12 10/21/21 nitroglycerin 0.4 mg sublingual 0.4 mg SUBLINGUAL PRN PRN 12/31/12 10/21/21 tablet (Nitrostat) rosuvastatin 10 mg tablet (Crestor) 20 mg PO DAILY 12/31/12 10/21/21 bupropion HCl 150 mg tablet,12 hr 150 mg PO BID 02/14/14 10/21/21 sustained-release pantoprazole 40 mg tablet,delayed 40 mg PO BID 02/14/14 10/21/21 release albuterol sulfate 90 mcg/actuation 2 puff IH Q4H 12/26/19 10/21/21 aerosol inhaler (ProAir HFA) aspirin 81 mg tablet,delayed 81 mg PO DAILY 12/26/19 10/21/21 release (Adult Aspirin Regimen) hydroxyzine pamoate 50 mg capsule 25 mg PO Q4H PRN #90 tab-cap 12/26/19 10/21/21 pramipexole 0.5 mg tablet (Mirapex) 0.5 - 1 mg PO DIRECTED 12/26/19 10/21/21 simethicone 80 mg chewable tablet 80 mg PO BID-QID PRN 12/26/19 09/30/21 (Gas Relief (simethicone)) sucralfate 1 gram tablet (Carafate) 1 gm PO QACHS 12/26/19 10/21/21 colchicine 0.6 mg tablet 0.6 mg PO BID tab 11/23/20 10/21/21 docusate sodium 100 mg capsule 100 mg PO BID PRN 11/23/20 10/21/21 (Colace) metoprolol succinate 200 mg 200 mg PO DAILY #90 tab 11/23/20 09/30/21 tablet,extended release 24 hr polyethylene glycol 3350 17 17 gm PO DAILY PRN 11/23/20 10/21/21 gram/dose oral powder (Miralax) ranolazine 500 mg tablet,extended 500 mg PO BID #60 tab 11/23/20 10/21/21 release,12 hr duloxetine 60 mg capsule,delayed 60 mg PO BID 12/24/20 10/21/21 release (Cymbalta) gabapentin 300 mg capsule 600 - 900 mg PO TID 12/24/20 10/21/21 losartan 25 mg tablet 12.5 mg PO DAILY 12/24/20 10/21/21 prochlorperazine maleate 10 mg 10 mg PO Q8H PRN 12/24/20 10/21/21 tablet topiramate 25 mg tablet 25 - 50 mg PO BID 06/07/21 10/21/21 dulaglutide 0.75 mg/0.5 mL 0.75 mg SUBCUT DIRECTED 10/21/21 10/21/21 subcutaneous pen injector (Trulicity) isosorbide mononitrate 30 mg 30 mg PO QAM 10/21/21 10/21/21 tablet,extended release 24 hr metformin 1,000 mg tablet,extended 1,000 mg PO BID #60 tab 10/24/21 release 24hr Previous Rx's Medication Instructions Recorded metoprolol succinate 200 mg 200 mg PO DAILY #90 tab 11/23/20 tablet,extended release 24 hr ranolazine 500 mg tablet,extended 500 mg PO BID #60 tab 11/23/20 release,12 hr metformin 1,000 mg tablet,extended 1,000 mg PO BID #60 tab 10/24/21 release 24hr Allergies Allergy/AdvReac Type Severity Reaction Status Date / Time thallium-201 [Thallium-201] Allergy Severe Pt went to Verified 10/21/21 17:52 [facility] [place] ciprofloxacin Allergy Intermediate Verified 10/21/21 17:52 lisinopril AdvReac cough Verified 10/21/21 17:52 Paper tape Allergy Intermediate rash Uncoded 10/21/21 17:52 General Stated Complaint: Nausea/Vomit/Diar NANCY: 2 Review of Systems Constitutional Constitutional: Reports as per HPI, Denies chills, Reports fatigue, Denies fever(s), Denies headache(s) and Reports malaise ENT Ears, Nose, Mouth, and Throat: Denies headache(s) Cardiovascular Cardiovascular: Reports as per HPI, Denies chest pain and Denies dyspnea Respiratory Respiratory: Reports as per HPI, Denies cough and Denies dyspnea Gastrointestinal Gastrointestinal: Reports as per HPI Genitourinary Genitourinary: Denies system reviewed and no additional complaints, except as documented (patient denies any change in urinary habits) Musculoskeletal Musculoskeletal: Reports as per HPI and Denies back pain Integumentary/Breasts Skin/Breast: Reports as per HPI and Denies rash Neurologic Neurologic: Reports as per HPI and Denies headache(s) Endocrine Endocrine: Reports fatigue PFSH All Active Problems (Updated 10/25/21 @ 00:03 by [employer]) Hyperplastic colon polyp (Acute) Tubular adenoma of colon (Acute) CAD (coronary artery disease) (Chronic) a. LAD stent at [facility] [place] b. Restenosis of LAD and two more stents to LAD at [facility] 01/2014 c. 50% proximal RCA lesion d. Recurrent angina on Ranolazine e. Normal [place] scan 08/2014 Tobacco abuse (Chronic) History of TIA (transient ischemic attack) (Chronic) Obesity (Chronic) Diabetes mellitus, type II (Chronic) Hypertension (Chronic) Hyperlipidemia (Chronic) Atherosclerotic cardiovascular disease (Acute) Atypical angina (Acute) Screening for colon cancer (Acute) Encounter for colorectal cancer screening (Acute) Medical History (Updated 10/25/21 @ 00:03 by [employer]) Abdominal pain Abscess of right groin Acute diarrhea Asthma Cervicalgia Cholelithiasis a. cholecystectomy Chronic pain COPD (chronic obstructive pulmonary disease) Dental infection Depression Discharge planning issues Diverticulitis Duodenitis Family history of colon cancer Fibromyalgia Gastroparesis diabeticorum Gastropathy GERD (gastroesophageal reflux disease) H/O: gout Headache Hematuria Hemiplegic migraine With intractable migraine, so stated, without mention of status migrainosus Hip pain, right Hypomagnesemia Hypotensive episode Ileitis Knee pain, left Left cervical radiculopathy Leg pain, right Myalgia Myocardial infarction, inferior wall 2013 Palpitations Peripheral neuropathy Postural lightheadedness Reaction, situational RLS (restless legs syndrome) Shoulder pain, left Smoker Syncope Tachycardia, paroxysmal Thyroid nodule Surgical History (Updated 10/11/21 @ 13:22 by Katiana Penn RN) H/O surgical procedure a. cath and stents b. cholecystectomy c. back surgery History of arthroscopic surgery of shoulder History of cholecystectomy History of colonoscopy (~09/2021) History of coronary artery stent placement History of knee surgery Hx of discectomy Hx of tonsillectomy Social History (Updated 07/23/21 @ 11:56 by Ramesh De Jesus RN) Smoking/Tobacco Use Status: Current every day Tobacco Type: cigarettes Smoking risk assessment performed?: Yes Alcohol Intake: former Drug use: Daily Substance use type: marijuana Details: 2-3 joints/day Household members: spouse Housing: house Number of Children: 2 current occupation: Disabled Current gender identity: male What type of physical activity do you participate in: walking, independent ambulation and additional Details: work at home (outside work) Do you feel safe at home: Yes Do you feel safe in your relationship?: Yes Exam Const General: cooperative, not healthy appearing, comfortable, no acute distress, well developed and ill appearing acutely and chronically Nutritional Appearance: well nourished and obese Orientation: alert and awake HENNJ Head: normal to inspection Mouth: mucous membranes dry (patient appears dry) Resp Effort & Inspection: normal respiratory effort, able to speak in complete sentences and no respiratory distress Auscultation: clear to auscultation bilaterally, no rales, no rhonchi and no wheezes Cardio Rate: regular rate Rhythm: regular rhythm Heart Sounds: S1 normal and S2 normal GI Inspection: normal to inspection Palpation: soft, no hepatosplenomegaly, no hernias, no masses, no pulsatile masses, not rigid and tender (diffusely tender with palpation, no focal area of pain) Percussion: normal to percussion Auscultation: hypoactive bowel sounds Back/Spine/Pelvis Back: no CVA tenderness Skin General skin exam: no rashes or lesions noted Trauma: no lacerations or abrasions Neuro General: patient alert and patient awake Cognition: normal cognition Speech: speech normal Gait: normal gait Psych Appearance: grossly normal and well kempt Mental Status: mental status grossly normal Speech and Movement: speech and movement normal Course Vital Signs Vital signs: Vital Signs Temperature 36.7 C 10/21/21 17:45 Pulse 139 H 10/21/21 17:45 Respiratory Rate 19 10/21/21 17:45 Blood Pressure 134/87 10/21/21 17:45 Pulse Oximetry 96 10/21/21 17:45 Temperature 36.7 C 10/21/21 17:45 Temperature Source Temporal Artery Scan 10/21/21 17:45 Pulse 139 H 10/21/21 17:45 Respiratory Rate 19 10/21/21 17:45 Respiratory Effort Non-Labored 10/21/21 17:50 Blood Pressure 134/87 10/21/21 17:45 Blood Pressure Position Sitting 10/21/21 17:45 Pulse Oximetry 96 10/21/21 17:45 Oxygen Delivery Method Room Air 10/21/21 17:45 Oxygen Flow Rate 0 10/21/21 17:45 Pain Level 6 10/21/21 17:45
[2021-10-21] MEDS: Normal Saline 1,000 ML 1000 ML IV (18:33)
[2021-10-21 18:37] LABS: Abs Immature Grans 0.12 10^3/uL (0.0-0.06); Absolute Basophil Count 0.08 10^3/uL (0.0-0.2); Absolute Eosinophil Count 0.03 10^3/uL (0.0-0.7); Absolute Lymphocyte Count 2.09 10^3/uL (1.2-3.4); Absolute Neutrophil Count 10.43 10^3/uL (1.2-6.7); Basophils % 0.6; Eosinophils % 0.2; HCT 55.7 % (40.0-50.0); HGB 18.4 g/dL (13.5-17.5); Immature Grans % 0.9; MCV 84.9 fL (80-95); MPV 10.8 fL (8.0-11.0); Monocytes % 8.5; Neutrophils % 74.8; Nucleated RBC 0 %; Platelet Count 321 10^3/uL (130-400); RBC 6.56 10^6/uL (4.36-5.78); RDW 14.4 % (11.8-14.1); RDW-SD 43.9 fL; WBC 13.94 10^3/uL (4.4-10.8)
[2021-10-21 18:41] LABS: Absolute Monocyte Count 1.18 10^3/uL (0.1-0.8)
[2021-10-21] MEDS: Ondansetron 4 MG/2 ML VIAL IVP (18:52)
[2021-10-21 18:54] LABS: Diff Comment Agrees w/ Instrument; RBC Morphology Normal
[2021-10-21 19:34] LABS: ALT 25 U/L (16-63); AST 18 U/L (15-37); Albumin 4.7 g/dL (3.4-5.0); Alkaline Phosphatase 95 U/L (46-116); Anion Gap 28.8 mmol/L (3-11); BUN 18 mg/dL (7-18); Bilirubin, Total 0.5 mg/dL (0.2-1.0); CO2 11.2 mmol/L (21.0-32.0); CREATININE 1.4 mg/dL (0.70-1.30); Calcium 9.9 mg/dL (8.5-10.1); Chloride 94 mmol/L (98-107); Estimated GFR 52.81 (mL/min/1.73m2); Glucose 239 mg/dL (74-106); Magnesium 2.2 mg/dL (1.8-2.4); Potassium 4.3 mmol/L (3.5-5.1); Sodium 134 mmol/L (136-145); Total Protein 9.9 g/dL (6.4-8.2); Troponin I < 50 ng/L (<or=60)
--- NOTE | 2021-10-21 20:15 | DI.CT_ITS ---
Exam(s) CT ABDOMEN PELVIS W EXAM: CT ABDOMEN PELVIS W CLINICAL HISTORY: diffuse pain, N/V x 1 wk TECHNIQUE: Imaging Protocol: Axial computed tomography images with coronal and sagittal reformatted images were created and reviewed CONTRAST MATERIAL: Intravenous: Omnipaque 350 Contrast volume:100 mL Oral: No COMPARISON: CT CT ABDOMEN PELVIS W from 09/16/[address] PELVIC WO from 06/07/2021 FINDINGS: ABDOMEN: Lung Bases: Coronary artery calcifications are present. Liver: There is diffuse decreased attenuation of the liver consistent with fatty infiltration. No me asurable mass. Portal, Superior Mesenteric, and Splenic Veins: Unremarkable. Gallbladder and Biliary Tract: Status post cholecystectomy. There is no biliary ductal dilatation. Pancreas: Normal density, no abnormal calcifications or inflammatory process. Spleen: Normal. Adrenals: No masses seen. Kidneys: Normal size, contour and axis. No radiodense stones or obstructive uropathy. There are bilat eral simple renal cysts which appears stable. No follow-up is recommended. Abdominal Aorta: Abdominal portion non-dilated. Mild atherosclerosis. Bowel: No obstruction or bowel wall thickening. Appendix is unremarkable. There is scattered divertic jairo in the colon, but no evidence of acute diverticulitis. Peritoneal Cavity: No ascites, collection or mesenteric inflammatory response. No free air. Lymph Nodes: Within normal limits. Bones: Within normal limits for the patient's age. Soft Tissues: Unremarkable. PELVIS: Bladder: Symmetric distention, no gross wall thickening. Reproductive Organs: Unremarkable as visualized. Lymph Nodes: Within normal limits. Bones: Within normal limits for the patient's age. IMPRESSION: No acute abdominal or pelvic process. RADIATION DOSE DELIVERED: 1,500.88mGy.cm Total DLP DATA REPOSITORY: All CT scans at this facility are submitted to the National Radiology Data Registry (NRDR) Dose Index Registry (DIR) with the [employer] (ACR). RADIATION OPTIMIZATION: All CT scans at this facility use at least one of these dose optimization te chniques: automated exposure control; mA and/or kV adjustment per patient size (includes targeted exa ms where dose is matched to clinical indication); or iterative reconstruction.
[2021-10-21] MEDS: Lactated Ringers 1,000 ML 500 ML IV (20:35)
[2021-10-21 20:38] LABS: HCO3 (Venous) 11 mmol/L (23-28); O2 Sat (Venous) 80 %; TCO2 (Venous) 10 mmol/L (24-29); pCO2 (Venous) 29 mmHg (41-51); pO2 (Venous) 45 mmHg
[2021-10-21] MEDS: Metoclopramide 10 MG/2 ML VIAL IVP (20:43)
[2021-10-21 20:44] LABS: pH (Venous) 7.17 (7.31-7.41)
[2021-10-21] MEDS: diphenhydrAMINE 50 MG/ML VIAL 25 MG IVP (20:44)
[2021-10-21] MEDS: Metoprolol 5 MG/5 ML VIAL 2.5 MG IVP (20:48)
[2021-10-21 20:51] LABS: Lipase 136 U/L (73-393)
[2021-10-21] MEDS: Omnipaque 350 MG/ML 100 ML BTL IJ (21:28)
[2021-10-21] MEDS: Normal Saline Flush 10 ML SYR IVP (21:29)
--- NOTE | 2021-10-21 22:17 | DI.VRAD_ITS ---
PROCEDURE INFORMATION: Exam: CT Abdomen And Pelvis With Contrast Exam date and time: 10/21/2021 8:16 PM Age: 56 years old Clinical indication: Nausea and vomiting; Abdominal pain; Prior surgery; date: 6+ months: Cholecystectomy, hernia repair x 2 TECHNIQUE: Imaging protocol: Computed tomography of the abdomen and pelvis with contrast. Radiation optimization: All CT scans at this facility use at least one of these dose optimization techniques: automated exposure control; mA and/or kV adjustment per patient size (includes targeted exams where dose is matched to clinical indication); or iterative reconstruction. Contrast material: OMNIPAQUE 350; Contrast volume: 100 ml; Contrast route: INTRAVENOUS (IV); COMPARISON: CT PELVIC WO 06/07/2021 9:35 PM FINDINGS: Lungs: No acute infiltrate in either lung base. Heart: Normal heart size. Coronary artery calcification. Liver: Liver fatty infiltration. No discrete liver lesion. Gallbladder and bile ducts: Status post cholecystectomy. No biliary tract dilatation. Pancreas: Normal. No ductal dilation. Spleen: Normal. No splenomegaly. Adrenal glands: Normal. No mass. Kidneys and ureters: No hydronephrosis or perinephric fluid. Bilateral renal cortical stable benign simple cysts. No follow-up imaging is recommended. Stomach and bowel: No generalized ileus or bowel obstruction. Scattered colon diverticuli without evidence of diverticulitis. Duodenal diverticulum. Appendix: Normal appendix. Intraperitoneal space: No free air. No significant fluid collection. Vasculature: Unremarkable. No abdominal aortic aneurysm. Lymph nodes: No enlarged lymph nodes. Urinary bladder: Unremarkable as visualized. Reproductive: Unremarkable as visualized. Bones/joints: Spinal degenerative changes. Mild lumbar levoscoliosis. Soft tissues: Unremarkable. IMPRESSION: 1. No acute intra-abdominal or pelvic process. 2. No generalized ileus or bowel obstruction. 3. Scattered colon diverticuli without evidence of diverticulitis. Dictated and Authenticated by: Panda Coon MD. Ordering:LUPE Jauregui MD
[2021-10-21 23:13] LABS: Source Nasopharynx
[2021-10-21 23:14] LABS: HCO3 (Venous) 10 mmol/L (23-28); O2 Sat (Venous) 78 %; TCO2 (Venous) 10 mmol/L (24-29); pCO2 (Venous) 29 mmHg (41-51); pO2 (Venous) 44 mmHg
[2021-10-21 23:14] LABS: Bilirubin Small (Negative); Blood Small (Negative); Clarity Clear (Clear); Glucose 500 mg/dL (Negative); Ketones >=160 mg/dL (Negative); Leukocyte Esterase Negative (Negative); Nitrite Negative (Negative); Specific Gravity >= 1.030 (1.005-1.025); Urobilinogen 0.2 EU/dL (Up TO 0.2); pH 5.5 (5-8)
[2021-10-21 23:16] LABS: pH (Venous) 7.17 (7.31-7.41)
[2021-10-21 23:20] LABS: Bacteria Negative HPF (Negative); C & S Indicated? No; Casts Negative LPF (Negative); Crystals Negative HPF (Negative); Epithelial Cells Few HPF (Negative); Mucus Trace (Negative); WBC 0-2 HPF (0-5)
[2021-10-21] MEDS: Albuterol HFA 8 GM 60 PUFF INH IH (23:25)
[2021-10-21] MEDS: Enoxaparin 40 MG/0.4 ML SYR SC (23:25)
[2021-10-21 23:26] LABS: Anion Gap 24.6 mmol/L (3-11); BUN 17 mg/dL (7-18); CO2 11.4 mmol/L (21.0-32.0); CREATININE 1.2 mg/dL (0.70-1.30); Calcium 8.9 mg/dL (8.5-10.1); Chloride 98 mmol/L (98-107); Glucose 196 mg/dL (74-106); Potassium 4.1 mmol/L (3.5-5.1); Sodium 134 mmol/L (136-145)
[2021-10-21 23:31] LABS: Salicylate 4.1 mg/dL (<2.8)
[2021-10-22] VITALS (74 sets, daily range): BP systolic 90–137; BP diastolic 56–76; PULSE 67–120; RESP 10–30; TEMP 35.7–36.9; O2SAT 92–97
[2021-10-22] MEDS: Lactated Ringers 1,000 ML 200 ML IV (00:08)
[2021-10-22 00:20] LABS: COVID-19 PCR Negative (Negative)
[2021-10-22] MEDS: DULoxetine 30 MG CAP 60 MG PO ×3 (01:33→20:51)
[2021-10-22] MEDS: Pramipexole 0.5 MG TAB 1 MG PO (01:33)
[2021-10-22] MEDS: Albuterol HFA 8 GM 60 PUFF INH IH ×2 (02:36→05:55)
--- NOTE | 2021-10-22 06:51 | W.PM.HP.N ---
Date of service: 10/21/21 Time of Service: 22:00 Assessment and Plan Assessment and plan (1) Metabolic acidosis: Status: Acute Assessment and plan: Etiology metabolic acidosis is not clear at this time. His blood sugars do not seem high enough to cause a diabetic ketoacidosis. We will administer IV fluids and follow his blood sugars and recheck his venous blood gases. (2) Gastroenteritis: Status: Acute Assessment and plan: Etiology of the gastroenteritis is not clear at this time. No one else around him has been ill. We will give him IV fluids and start on clear liquids by mouth. History of Present Illness History of Present Illness Chief Complaint: Nausea, vomiting. Narrative: This 56-year-old male came to the hospital with chief complaint of nausea vomiting and few loose stools. He has not been around anyone else has been sick. He has had nausea and vomiting for about 1 week. He has gotten worse and he came to the hospital for this. He did a home test for coronavirus which was negative. He has had his vaccines and booster. He has not been traveling. He lives at home with his who is not ill. He has had chills but no known fever. There is been no abdominal pain. He did have a colonoscopy about 2 weeks ago which found 10 polyps for which were benign and 6 were premalignant. He has had multiple surgeries include cholecystectomy tonsils, 2 hernia surgeries and multiple orthopedic surgeries. His colonoscopy also found diverticuli. In the emergency department he was found to have a metabolic acidosis of uncertain etiology. He does have a history of coronary artery disease but he has had no chest pain. Review of Systems Constitutional Constitutional: Reports chills, Denies fever(s), Denies frequent falls and Reports lethargy ENT Ears, Nose, Mouth, and Throat: Denies dysphagia Cardiovascular Cardiovascular: Denies chest pain, Denies pedal edema, Denies irregular heart rhythm, Denies palpitations and Reports dyspnea Respiratory Respiratory: Denies cough, Reports dyspnea and Denies wheezing Gastrointestinal Gastrointestinal: Denies abdominal pain, Denies dysphagia, Reports diarrhea, Reports nausea and Reports vomiting Genitourinary Genitourinary: Denies difficulty urinating, Denies flank pain, Denies urinary frequency and Denies urinary urgency Neurologic Neurologic: Denies abnormal movements, Denies frequent falls, Denies localized weakness and Denies memory loss Psychiatric Psychiatric: Denies memory loss Endocrine Endocrine: Denies palpitations Allergic/Immunologic Allergic/Immunologic: Denies wheezing PFSH All Active Problems (Updated 10/22/21 @ 07:00 by Juan Whitehead MD) Gastroenteritis (Acute) Metabolic acidosis (Acute) Hyperplastic colon polyp (Acute) Tubular adenoma of colon (Acute) CAD (coronary artery disease) (Chronic) a. LAD stent at [facility] 2012 b. Restenosis of LAD and two more stents to LAD at [facility] 01/2014 c. 50% proximal RCA lesion d. Recurrent angina on Ranolazine e. Normal Camacho scan 08/2014 Tobacco abuse (Chronic) History of TIA (transient ischemic attack) (Chronic) Obesity (Chronic) Diabetes mellitus, type II (Chronic) Hypertension (Chronic) Hyperlipidemia (Chronic) Atherosclerotic cardiovascular disease (Acute) Atypical angina (Acute) Screening for colon cancer (Acute) Encounter for colorectal cancer screening (Acute) Medical History (Updated 10/22/21 @ 07:00 by Juan Whitehead MD) Abdominal pain Abscess of right groin Acute diarrhea Asthma Cervicalgia Cholelithiasis a. cholecystectomy Chronic pain COPD (chronic obstructive pulmonary disease) Dental infection Depression Discharge planning issues Diverticulitis Duodenitis Family history of colon cancer Fibromyalgia Gastroparesis diabeticorum Gastropathy GERD (gastroesophageal reflux disease) H/O: gout Headache Hematuria Hemiplegic migraine With intractable migraine, so stated, without mention of status migrainosus Hip pain, right Hypomagnesemia Hypotensive episode Ileitis Knee pain, left Left cervical radiculopathy Leg pain, right Myalgia Myocardial infarction, inferior wall 2013 Palpitations Peripheral neuropathy Postural lightheadedness Reaction, situational RLS (restless legs syndrome) Shoulder pain, left Smoker Syncope Tachycardia, paroxysmal Thyroid nodule Surgical History (Updated 10/11/21 @ 13:22 by Katiana Penn RN) H/O surgical procedure a. cath and stents b. cholecystectomy c. back surgery History of arthroscopic surgery of shoulder History of cholecystectomy History of colonoscopy (~09/2021) History of coronary artery stent placement History of knee surgery Hx of discectomy Hx of tonsillectomy Social History (Updated 07/23/21 @ 11:56 by Ramesh De Jesus RN) Smoking/Tobacco Use Status: Current every day Tobacco Type: cigarettes Smoking risk assessment performed?: Yes Alcohol Intake: former Drug use: Daily Substance use type: marijuana Details: 2-3 joints/day Household members: spouse Housing: house Number of Children: 2 current occupation: Disabled Current gender identity: male What type of physical activity do you participate in: walking, independent ambulation and additional Details: work at home (outside work) Do you feel safe at home: Yes Do you feel safe in your relationship?: Yes Meds Allergies and Home Medications Allergies Allergy/AdvReac Type Severity Reaction Status Date / Time thallium-201 [Thallium-201] Allergy Severe Pt went to Verified 10/21/21 17:52 [facility] due to med ciprofloxacin Allergy Intermediate Verified 10/21/21 17:52 lisinopril AdvReac cough Verified 10/21/21 17:52 Paper tape Allergy Intermediate rash Uncoded 10/21/21 17:52 Home Medications Medication Instructions Recorded Confirmed Type cyclobenzaprine 10 mg tablet 10 mg PO HS PRN 12/31/12 10/21/21 History nitroglycerin 0.4 mg sublingual 0.4 mg SUBLINGUAL PRN PRN 12/31/12 10/21/21 History tablet (Nitrostat) rosuvastatin 10 mg tablet (Crestor) 20 mg PO DAILY 12/31/12 10/21/21 History bupropion HCl 150 mg tablet,12 hr 150 mg PO BID 02/14/14 10/21/21 History sustained-release pantoprazole 40 mg tablet,delayed 40 mg PO BID 02/14/14 10/21/21 History release albuterol sulfate 90 mcg/actuation 2 puff IH Q4H 12/26/19 10/21/21 History aerosol inhaler (ProAir HFA) aspirin 81 mg tablet,delayed 81 mg PO DAILY 12/26/19 10/21/21 History release (Adult Aspirin Regimen) hydroxyzine pamoate 50 mg capsule 25 mg PO Q4H PRN #90 tab-cap 12/26/19 10/21/21 History pramipexole 0.5 mg tablet (Mirapex) 0.5 - 1 mg PO DIRECTED 12/26/19 10/21/21 History simethicone 80 mg chewable tablet 80 mg PO BID-QID PRN 12/26/19 09/30/21 History (Gas Relief (simethicone)) sucralfate 1 gram tablet (Carafate) 1 gm PO QACHS 12/26/19 10/21/21 History colchicine 0.6 mg tablet 0.6 mg PO BID tab 11/23/20 10/21/21 History docusate sodium 100 mg capsule 100 mg PO BID PRN 11/23/20 10/21/21 History (Colace) metoprolol succinate 200 mg 200 mg PO DAILY #90 tab 11/23/20 09/30/21 Rx tablet,extended release 24 hr polyethylene glycol 3350 17 17 gm PO DAILY PRN 11/23/20 10/21/21 History gram/dose oral powder (Miralax) ranolazine 500 mg tablet,extended 500 mg PO BID #60 tab 11/23/20 10/21/21 Rx release,12 hr duloxetine 60 mg capsule,delayed 60 mg PO BID 12/24/20 10/21/21 History release (Cymbalta) gabapentin 300 mg capsule 600 - 900 mg PO TID 12/24/20 10/21/21 History losartan 25 mg tablet 12.5 mg PO DAILY 12/24/20 10/21/21 History prochlorperazine maleate 10 mg 10 mg PO Q8H PRN 12/24/20 10/21/21 History tablet topiramate 25 mg tablet 25 - 50 mg PO BID 06/07/21 10/21/21 History empagliflozin 25 mg tablet 25 mg PO DAILY 07/23/21 09/26/21 History (Jardiance) metformin 500 mg tablet,extended 500 mg PO BID tab 07/23/21 10/21/21 History release 24 hr (Glucophage XR) dulaglutide 0.75 mg/0.5 mL 0.75 mg SUBCUT DIRECTED 10/21/21 10/21/21 History subcutaneous pen injector (Trulicity) isosorbide mononitrate 30 mg 30 mg PO QAM 10/21/21 10/21/21 History tablet,extended release 24 hr Exam Const General: cooperative, no acute distress, not diaphoretic, disheveled, not lethargic and No well hydrated Nutritional Appearance: overweight Orientation: alert, awake and oriented x3 Eyes General: appearance normal, both eyes and all related structures Neck Neck: normal visual inspection and no lymphadenopathy Resp Auscultation: clear to auscultation bilaterally, no rales and no wheezes Cardio Rate: regular rate Rhythm: regular rhythm Heart Sounds: S1 normal, S2 normal, no gallops and no murmurs GI Inspection: normal to inspection and non-distended Palpation: soft, no hepatosplenomegaly and nontender Skin General skin exam: no rashes or lesions noted Neuro General: patient alert, patient awake and patient oriented x3 Cranial Nerves: CN's II-XI intact bilaterally and tongue midline Extrem General: normal to inspection and no edema Results Labs Result diagrams: 10/21/21 18:25 10/21/21 23:08 Labs: Laboratory Results - last 24 hr 10/21/21 10/21/21 10/21/21 18:25 18:25 20:35 WBC 13.94 H RBC 6.56 H Hgb 18.4 H Hct 55.7 H MCV 84.9 MCH 28.0 MCHC 33.0 RDW 14.4 H Plt Count 321 MPV 10.8 Immature Gran % 0.9 Neutrophils % 74.8 Lymphocytes % 15.0 Monocytes % 8.5 Eosinophils % 0.2 Basophils % 0.6 Nucleated RBC % 0 Absolute Neutrophils 10.43 H Absolute Lymphocytes 2.09 Absolute Monocytes 1.18 H Absolute Eosinophils 0.03 Absolute Basophils 0.08 RBC Morphology Normal VBG pH 7.17 L* VBG pCO2 29 L VBG pO2 45 VBG HCO3 11 L VBG Total CO2 10 L VBG O2 Saturation 80 VBG Base Excess < -15 L Sodium 134 L Potassium 4.3 Chloride 94 L Carbon Dioxide 11.2 L Anion Gap 28.8 H BUN 18 Creatinine 1.4 H Estimated GFR/1.73 m2 52.81 Glucose 239 H Calcium 9.9 Magnesium 2.2 Total Bilirubin 0.5 AST 18 ALT 25 Alkaline Phosphatase 95 Troponin I < 50 Total Protein 9.9 H Albumin 4.7 Lipase Urine Color Urine Clarity Urine pH Ur Specific [place] Urine Protein Urine Ketones Urine Blood Urine Nitrite Urine Bilirubin Urine Urobilinogen Ur Leukocyte Esterase Urine RBC Urine WBC Ur Epithelial Cells Urine Crystals Urine Bacteria Urine Casts Urine Mucus Ur Culture Indicated? Urine Glucose Salicylates COVID-19 Source SARS-CoV-2 (PCR) 10/21/21 10/21/21 10/21/21 20:35 23:05 23:05 WBC RBC Hgb Hct MCV MCH MCHC RDW Plt Count MPV Immature Gran % Neutrophils % Lymphocytes % Monocytes % Eosinophils % Basophils % Nucleated RBC % Absolute Neutrophils Absolute Lymphocytes Absolute Monocytes Absolute Eosinophils Absolute Basophils RBC Morphology VBG pH VBG pCO2 VBG pO2 VBG HCO3 VBG Total CO2 VBG O2 Saturation VBG Base Excess Sodium Potassium Chloride Carbon Dioxide Anion Gap BUN Creatinine Estimated GFR/1.73 m2 Glucose Calcium Magnesium Total Bilirubin AST ALT Alkaline Phosphatase Troponin I Total Protein Albumin Lipase 136 Urine Color Yellow Urine Clarity Clear Urine pH 5.5 Ur Specific [place] >= 1.030 H Urine Protein 100 H Urine Ketones >=160 H Urine Blood Small H Urine Nitrite Negative Urine Bilirubin Small H Urine Urobilinogen 0.2 Ur Leukocyte Esterase Negative Urine RBC 3-5 H Urine WBC 0-2 Ur Epithelial Cells Few Urine Crystals Negative Urine Bacteria Negative Urine Casts Negative Urine Mucus Trace Ur Culture Indicated? No Urine Glucose 500 H Salicylates COVID-19 Source Nasopharynx SARS-CoV-2 (PCR) Negative 10/21/21 10/21/21 10/21/21 23:08 23:08 23:08 WBC RBC Hgb Hct MCV MCH MCHC RDW Plt Count MPV Immature Gran % Neutrophils % Lymphocytes % Monocytes % Eosinophils % Basophils % Nucleated RBC % Absolute Neutrophils Absolute Lymphocytes Absolute Monocytes Absolute Eosinophils Absolute Basophils RBC Morphology VBG pH 7.17 L* VBG pCO2 29 L VBG pO2 44 VBG HCO3 10 L VBG Total CO2 10 L VBG O2 Saturation 78 VBG Base Excess < -15 L Sodium 134 L Potassium 4.1 Chloride 98 Carbon Dioxide 11.4 L Anion Gap 24.6 H BUN 17 Creatinine 1.2 Estimated GFR/1.73 m2 >= 60.00 Glucose 196 H Calcium 8.9 Magnesium Total Bilirubin AST ALT Alkaline Phosphatase Troponin I Total Protein Albumin Lipase Urine Color Urine Clarity Urine pH Ur Specific [place] Urine Protein Urine Ketones Urine Blood Urine Nitrite Urine Bilirubin Urine Urobilinogen Ur Leukocyte Esterase Urine RBC Urine WBC Ur Epithelial Cells Urine Crystals Urine Bacteria Urine Casts Urine Mucus Ur Culture Indicated? Urine Glucose Salicylates 4.1 COVID-19 Source SARS-CoV-2 (PCR) Last Vital Signs Temp 36.8 C 10/22/21 06:39 Pulse 100 H 10/22/21 06:39 Resp 18 10/22/21 06:39 BP 131/71 10/22/21 06:39 Pulse Ox 94 10/22/21 06:39
[2021-10-22 06:59] LABS: Abs Immature Grans 0.06 10^3/uL (0.0-0.06); Absolute Basophil Count 0.07 10^3/uL (0.0-0.2); Absolute Eosinophil Count 0.05 10^3/uL (0.0-0.7); Absolute Lymphocyte Count 2.92 10^3/uL (1.2-3.4); Absolute Monocyte Count 1.28 10^3/uL (0.1-0.8); Absolute Neutrophil Count 7.18 10^3/uL (1.2-6.7); Basophils % 0.6; Eosinophils % 0.4; HCT 49.6 % (40.0-50.0); HGB 16.2 g/dL (13.5-17.5); Immature Grans % 0.5; Lymphocytes % 25.3; MCH 27.6 pg (27.0-33.0); MCHC 32.7 % (32.0-36.0); MCV 84.6 fL (80-95); MPV 10.9 fL (8.0-11.0); Monocytes % 11.1; Neutrophils % 62.1; Nucleated RBC 0 %; Platelet Count 259 10^3/uL (130-400); RBC 5.86 10^6/uL (4.36-5.78); RDW 14.4 % (11.8-14.1); WBC 11.56 10^3/uL (4.4-10.8)
[2021-10-22 07:13] LABS: HCO3 (Venous) 11 mmol/L (23-28); O2 Sat (Venous) 96 %; TCO2 (Venous) 10 mmol/L (24-29); pCO2 (Venous) 29 mmHg (41-51); pO2 (Venous) 83 mmHg
[2021-10-22 07:19] LABS: Anion Gap 23.2 mmol/L (3-11); BUN 14 mg/dL (7-18); CO2 12.8 mmol/L (21.0-32.0); CREATININE 1.2 mg/dL (0.70-1.30); Calcium 8.9 mg/dL (8.5-10.1); Chloride 97 mmol/L (98-107); Glucose 188 mg/dL (74-106); Potassium 3.6 mmol/L (3.5-5.1); Sodium 133 mmol/L (136-145); Troponin I < 50 ng/L (<or=60)
[2021-10-22 07:21] LABS: pH (Venous) 7.18 (7.31-7.41)
[2021-10-22] MEDS: Isosorbide Mononitrate 30 MG TABCR PO (09:08)
[2021-10-22] MEDS: Aspirin E.C. 81 MG TABEC PO (09:08)
[2021-10-22] MEDS: Pramipexole 0.5 MG TAB PO (09:08)
[2021-10-22] MEDS: Sodium Bicarbonate 650 MG TAB PO (09:08)
[2021-10-22] MEDS: Insulin Aspart 300 UNITS/3 ML PEN SC ×2 (09:10→13:00)
[2021-10-22 10:49] LABS: HCO3 (Venous) 11 mmol/L (23-28); O2 Sat (Venous) 96 %; TCO2 (Venous) 10 mmol/L (24-29); pCO2 (Venous) 29 mmHg (41-51); pO2 (Venous) 87 mmHg
[2021-10-22] MEDS: POTASSIUM CHLORIDE/D5-0.45NACL 1,000 ML 200 MEQ IV ×3 (11:51→22:02)
[2021-10-22] MEDS: Insulin REGULAR-Human 100 UNITS/ML UNIT 10 UNITS SC ×2 (11:53→15:13)
[2021-10-22 13:45] LABS: Anion Gap 17.6 mmol/L (3-11); CO2 14.4 mmol/L (21.0-32.0); Chloride 98 mmol/L (98-107); Potassium 3.7 mmol/L (3.5-5.1); Sodium 130 mmol/L (136-145)
[2021-10-22] MEDS: Normal Saline Flush 10 ML SYR IVP ×2 (14:02→15:50)
[2021-10-22] MEDS: Ondansetron 4 MG/2 ML VIAL IVP (14:02)
[2021-10-22] MEDS: INSULIN REGULAR IN 0.9 % NACL 100 UNIT/100 ML BAG IV (15:51)
--- NOTE | 2021-10-22 17:20 | PDOC.CMIN ---
- If Service Date Differs Date of service: 10/22/21 Time of Service: 17:20 Care Management Initial Assess REASON FOR HOSPITALIZATION:: Gastroenteritis PAST MEDICAL HISTORY/PAST SURGICAL HISTORY:: Abdominal pain. Abscess of right groin. Acute diarrhea. Asthma. Cervicalgia. Cholelithiasis. a. cholecystectomy. Chronic pain. COPD (chronic obstructive pulmonary disease). Dental infection. Depression. Discharge planning issues. Diverticulitis. Duodenitis. Family history of colon cancer. Fibromyalgia. Gastroparesis diabeticorum. Gastropathy. GERD (gastroesophageal reflux disease). H/O: gout. Headache. Hematuria. Hemiplegic migraine. With intractable migraine, so stated, without mention of status migrainosus. Hip pain, right. Hypomagnesemia. Hypotensive episode. Ileitis. Knee pain, left. Left cervical radiculopathy. Leg pain, right. Myalgia. Myocardial infarction, inferior wall. 2013. Palpitations. Peripheral neuropathy. Postural lightheadedness. Reaction, situational. RLS (restless legs syndrome). Shoulder pain, left. Smoker. Syncope. Tachycardia, paroxysmal. Thyroid nodule. Surgical History (Updated 10/11/21 @ 13:22 by Katiana Penn RN). H/O surgical procedure. a. cath and stents. b. cholecystectomy. c. back surgery. History of arthroscopic surgery of shoulder. History of cholecystectomy. History of colonoscopy (~09/2021). History of coronary artery stent placement. History of knee surgery. Hx of discectomy. Hx of tonsillectomy PREVIOUS FUNCTIONAL STATUS/SOCIAL/FAMILY SUPPORTS:: Resides in [place] with Dasia. Independent at baseline. CURRENT FUNCTIONAL STATUS:: Transferred to ICU in [facility]. Up independently in room. ADVANCE DIRECTIVES:: None on file. Has patient been provided with info about the portal/API?: Yes Did the patient sign up for the portal?: Yes CODE STATUS:: Full Code INSURANCE COVERAGE / FINANCIAL ISSUES:: [employer] CURRENT HOME/COMMUNITY SERVICES/EQUIPMENT:: None, currently. PRIMARY CARE PHYSICIAN:: Coni Lim POTENTIAL DISCHARGE NEEDS:: Diabetic follow up, PCP follow up. PATIENT/FAMILY EDUCATION NEEDS:: Review discharge instructions, discuss Ask Me Three. ANTICIPATED BARRIERS TO DISCHARGE:: None identified. TRANSPORTATION:: Via private vehicle with Dasia. PLAN:: Anticipate Romeo will return home when ready per MD. He will follow up with his PCP and plan of care as prescribed. He will transport via private vehicle with , Dasia.
[2021-10-22] MEDS: Metoprolol 50 MG TAB 100 MG PO ×2 (17:33→20:51)
[2021-10-22 18:34] LABS: BE (Venous) -10 mmol/L (-2-3); HCO3 (Venous) 17 mmol/L (23-28); O2 Sat (Venous) 94 %; TCO2 (Venous) 15 mmol/L (24-29); pCO2 (Venous) 35 mmHg (41-51); pH (Venous) 7.29 (7.31-7.41); pO2 (Venous) 64 mmHg
[2021-10-22 18:48] LABS: Anion Gap 12.1 mmol/L (3-11); BUN 11 mg/dL (7-18); CO2 17.9 mmol/L (21.0-32.0); CREATININE 1.1 mg/dL (0.70-1.30); Calcium 8.6 mg/dL (8.5-10.1); Chloride 99 mmol/L (98-107); Glucose 195 mg/dL (74-106); Potassium 3.9 mmol/L (3.5-5.1); Sodium 129 mmol/L (136-145)
[2021-10-22] MEDS: Insulin Glargine 300 UNITS/3 ML PEN 15 UNITS SC (22:28)
[2021-10-22] MEDS: Enoxaparin 40 MG/0.4 ML SYR SC (22:28)
[2021-10-22 22:34] LABS: BE (Venous) -6 mmol/L (-2-3); HCO3 (Venous) 20 mmol/L (23-28); O2 Sat (Venous) 77 %; TCO2 (Venous) 18 mmol/L (24-29); pCO2 (Venous) 41 mmHg (41-51); pO2 (Venous) 37 mmHg
[2021-10-22 22:47] LABS: Anion Gap 8.1 mmol/L (3-11); CO2 21.9 mmol/L (21.0-32.0); Chloride 102 mmol/L (98-107); Potassium 4.2 mmol/L (3.5-5.1); Sodium 132 mmol/L (136-145)
[2021-10-23] VITALS (91 sets, daily range): BP systolic 87–118; BP diastolic 50–70; PULSE 65–84; RESP 11–25; TEMP 36–37.1; O2SAT 92–99
[2021-10-23 07:04] LABS: Abs Immature Grans 0.03 10^3/uL (0.0-0.06); Absolute Basophil Count 0.05 10^3/uL (0.0-0.2); Absolute Eosinophil Count 0.25 10^3/uL (0.0-0.7); Absolute Lymphocyte Count 2.52 10^3/uL (1.2-3.4); Absolute Monocyte Count 0.91 10^3/uL (0.1-0.8); Basophils % 0.7; Eosinophils % 3.6; HCT 42.6 % (40.0-50.0); HGB 14.5 g/dL (13.5-17.5); Immature Grans % 0.4; Lymphocytes % 35.8; MCH 27.5 pg (27.0-33.0); MCV 80.8 fL (80-95); MPV 10.4 fL (8.0-11.0); Monocytes % 12.9; Neutrophils % 46.6; Nucleated RBC 0 %; Platelet Count 214 10^3/uL (130-400); RBC 5.27 10^6/uL (4.36-5.78); RDW 14.6 % (11.8-14.1); RDW-SD 42.7 fL; WBC 7.03 10^3/uL (4.4-10.8)
[2021-10-23 07:07] LABS: Absolute Neutrophil Count 3.28 10^3/uL (1.2-6.7)
[2021-10-23 07:19] LABS: BUN 8 mg/dL (7-18); CREATININE 0.9 mg/dL (0.70-1.30); Calcium 8.6 mg/dL (8.5-10.1); Chloride 107 mmol/L (98-107); Glucose 133 mg/dL (74-106); Sodium 137 mmol/L (136-145)
--- NOTE | 2021-10-23 08:27 | NUR.NOTE ---
RN speaks to MD about advancing patient's diet to regular consistency diabetic. Dr. Hendricks will do same. RN orders eggs, toast and juice for patient.Nursing Note:
--- NOTE | 2021-10-23 08:30 | PDOC.CMPRO ---
- If Service Date Differs Date of service: 10/23/21 Time of Service: 08:30 Care Management Progress Note S/O:Dean was sitting up in bed when CM met with him. He was pleasant in interaction and agreeable to conversation. Dean shared that he is feeling much better than when he first arrived. He has not vomited since the day of admission and has not had any diarrheas. Dean was found to have DKA although his blood sugars have not been very high. He was on an insulin drip but that has been stopped. In conversation, CM learned that Dean and his have been struggling with finances. He is disabled and receives only $950/month. Their rent is $750/month and with fuel, electricity and food, they are barely managing. His Dasia is unable to work either although she does not receive any disability payments. She receives only a little over $100 per month from an accident settlement. CM offered to make a referral to [facility] and Dean was agreeable to the referral. A: Romeo is a 56 year old man admitted on 10/21/21 with gastroenteritis P:Anticipate Dean will return home when ready per MD. A referral was made by CM to [facility] to evaluate Dean's eligibility for additional community resources. He will follow up with his PCP and plan of care as prescribed and transport via private vehicle with , Dasia. CM will continue dorothy support Dean and assess for ongoing discharge concerns.
[2021-10-23] MEDS: POTASSIUM CHLORIDE/D5-0.45NACL 1,000 ML 200 MEQ IV (08:36)
[2021-10-23] MEDS: Isosorbide Mononitrate 30 MG TABCR PO (08:49)
[2021-10-23] MEDS: Aspirin E.C. 81 MG TABEC PO (08:49)
[2021-10-23] MEDS: Metoprolol 50 MG TAB 100 MG PO ×2 (08:49→19:25)
[2021-10-23] MEDS: DULoxetine 30 MG CAP 60 MG PO ×2 (08:49→19:25)
[2021-10-23] MEDS: Pramipexole 0.5 MG TAB PO (08:50)
--- NOTE | 2021-10-23 08:57 | NUR.NOTE ---
Patient begins eating diabetic regular consistency eggs, and toast. Nursing Note:
--- NOTE | 2021-10-23 09:03 | NUR.NOTE ---
RN stops D5/0.45NS with 40KCL drip and insulin drip per MD order since patient is eating a diabetic regular consistency breakfast.Nursing Note:
[2021-10-23] MEDS: Normal Saline Flush 10 ML SYR IVP ×3 (09:09→18:15)
[2021-10-23] MEDS: Insulin Aspart 300 UNITS/3 ML PEN SC ×2 (12:43→17:09)
--- NOTE | 2021-10-23 14:42 | NUR.NOTE ---
Care management notified. While giving the patient a shower today out on med surg floor, patient stated to me that he has not had hot water in his place of living for almost a month now. this sign writer hand did tell the patient that I would be in touch with care management and that they have resources available to help. Spoke with Unique (care worker) about situation. RN also notified. Nursing Note:
--- NOTE | 2021-10-23 14:45 | NUR.NOTE ---
Patient tolerated diet well and is feeling well. Patient will be transferred to Med/Surg when a bed becomes available.Nursing Note:
--- NOTE | 2021-10-23 14:47 | W.PM.PROGNOT ---
Date of Service Date of service: 10/23/21 Time of Service: 14:47 Assessment and Plan Assessment and plan (1) Ketoacidosis due to diabetes mellitus: Status: Acute Assessment and plan: A1c 9.7 in May Now off insulin drip. Basal/bolus insulin; adjust as necessary Diabetic diet. At home he is on Trulicity, Jardiance and metformin. Restart tomorrow and monitor glucose readings before discharging. (2) CAD (coronary artery disease): Status: Chronic Assessment and plan: No angina. Cont aspirin and metoprolol. (3) Hypertension: Status: Chronic Assessment and plan: Cont metoprolol and monitor. Holding losartan. Qualifiers: Hypertension type: unspecified Qualified Code(s): I10 - Essential (primary) hypertension (4) Hyperlipidemia: Status: Chronic Assessment and plan: Cont Rosuvastatin. (5) COPD (chronic obstructive pulmonary disease): Assessment and plan: No exacerbation. Not on any controller or rescue inhalers at home. Current smoker (6) RLS (restless legs syndrome): Assessment and plan: Cont Mirapex Subjective Subjective Patient reports: no new complaints, tolerating a regular diet and afebrile; denies diarrhea, nausea, vomiting or shortness of breath Interval history since last seen: Feels fatigued Exam Const General: cooperative, no acute distress and not diaphoretic Nutritional Appearance: overweight Orientation: alert, awake and oriented x3 Eyes General: appearance normal, both eyes and all related structures Sclera: sclerae normal Neck Neck: normal visual inspection and no lymphadenopathy Resp Effort & Inspection: normal respiratory effort Auscultation: clear to auscultation bilaterally, no rales and no wheezes Cardio Rate: regular rate Rhythm: regular rhythm Heart Sounds: S1 normal, S2 normal, no gallops and no murmurs GI Inspection: normal to inspection and non-distended Palpation: soft and nontender Skin General skin exam: no rashes or lesions noted Neuro General: patient alert, patient awake and patient oriented x3 Cranial Nerves: facial strength normal Cognition: normal cognition Speech: speech normal Extrem General: normal to inspection, no pedal edema and no calf tenderness Psych Mental Status: mental status grossly normal Speech and Movement: speech and movement normal Affect: normal affect Objective Last Vital Signs Temp 36.3 C L 10/23/21 14:43 Pulse 69 03/02/22 14:43 Resp 18 10/23/21 14:43 BP 105/61 10/23/21 14:43 Pulse Ox 97 10/23/21 14:43 Laboratory Results - last 24 hr 10/21/21 10/22/21 10/22/21 18:25 18:20 18:20 WBC RBC Hgb Hct MCV MCH MCHC RDW Plt Count MPV Immature Gran % Neutrophils % Lymphocytes % Monocytes % Eosinophils % Basophils % Nucleated RBC % Absolute Neutrophils Absolute Lymphocytes Absolute Monocytes Absolute Eosinophils Absolute Basophils VBG pH 7.29 L VBG pCO2 35 L VBG pO2 64 VBG HCO3 17 L VBG Total CO2 15 L VBG O2 Saturation 94 VBG Base Excess -10 L Sodium 129 L Potassium 3.9 Chloride 99 Carbon Dioxide 17.9 L Anion Gap 12.1 H BUN 11 Creatinine 1.1 Estimated GFR/1.73 m2 >= 60.00 Glucose 195 H Calcium 8.6 Path Cons Comment SEE COMMENT 10/22/21 10/22/21 10/23/21 22:22 22:22 06:30 WBC RBC Hgb Hct MCV MCH MCHC RDW Plt Count MPV Immature Gran % Neutrophils % Lymphocytes % Monocytes % Eosinophils % Basophils % Nucleated RBC % Absolute Neutrophils Absolute Lymphocytes Absolute Monocytes Absolute Eosinophils Absolute Basophils VBG pH 7.30 L VBG pCO2 41 VBG pO2 37 VBG HCO3 20 L VBG Total CO2 18 L VBG O2 Saturation 77 VBG Base Excess -6 L Sodium 132 L 137 Potassium 4.2 4.0 Chloride 102 107 Carbon Dioxide 21.9 20.0 L Anion Gap 8.1 10.0 BUN 8 Creatinine 0.9 Estimated GFR/1.73 m2 >= 60.00 Glucose 133 H Calcium 8.6 Path Cons Comment 10/23/21 06:30 WBC 7.03 D RBC 5.27 Hgb 14.5 Hct 42.6 MCV 80.8 D MCH 27.5 MCHC 34.0 RDW 14.6 H Plt Count 214 MPV 10.4 Immature Gran % 0.4 Neutrophils % 46.6 Lymphocytes % 35.8 Monocytes % 12.9 Eosinophils % 3.6 Basophils % 0.7 Nucleated RBC % 0 Absolute Neutrophils 3.28 Absolute Lymphocytes 2.52 Absolute Monocytes 0.91 H Absolute Eosinophils 0.25 Absolute Basophils 0.05 VBG pH VBG pCO2 VBG pO2 VBG HCO3 VBG Total CO2 VBG O2 Saturation VBG Base Excess Sodium Potassium Chloride Carbon Dioxide Anion Gap BUN Creatinine Estimated GFR/1.73 m2 Glucose Calcium Path Cons Comment
--- NOTE | 2021-10-23 14:55 | NUR.NOTE ---
RN sends Speech Therapist Technician and Med/Surg Automotive Teacher notice of transfer orders to Med/Surg.Nursing Note:
[2021-10-23] MEDS: Gabapentin 300 MG CAP 900 MG PO ×2 (15:22→21:41)
[2021-10-23 19:53] LABS: Anion Gap 9.9 mmol/L (3-11); CO2 21.1 mmol/L (21.0-32.0); CREATININE 0.8 mg/dL (0.70-1.30); Calcium 8.9 mg/dL (8.5-10.1); Chloride 104 mmol/L (98-107); Sodium 135 mmol/L (136-145)
[2021-10-23 19:59] LABS: BUN 12 mg/dL (7-18)
[2021-10-23 20:04] LABS: Glucose 256 mg/dL (74-106)
[2021-10-23] MEDS: Pramipexole 0.5 MG TAB 1 MG PO (21:40)
[2021-10-23] MEDS: Enoxaparin 40 MG/0.4 ML SYR SC (21:41)
[2021-10-23] MEDS: Insulin Glargine 300 UNITS/3 ML PEN 15 UNITS SC (21:41)
[2021-10-24 00:30] VITALS: BP 107/68; PULSE 82; RESP 16; TEMP 36.9; O2SAT 96
[2021-10-24 03:40] VITALS: BP 108/71; PULSE 74; RESP 18; TEMP 36.4; O2SAT 96
[2021-10-24 07:44] VITALS: BP 115/78; PULSE 87; RESP 18; TEMP 36.5; O2SAT 98
[2021-10-24] MEDS: Gabapentin 300 MG CAP 600 MG PO (08:20)
[2021-10-24] MEDS: DULoxetine 30 MG CAP 60 MG PO (08:20)
[2021-10-24] MEDS: Aspirin E.C. 81 MG TABEC PO (08:20)
[2021-10-24] MEDS: Insulin Aspart 300 UNITS/3 ML PEN SC (08:20)
[2021-10-24] MEDS: Isosorbide Mononitrate 30 MG TABCR PO (08:21)
[2021-10-24] MEDS: Pramipexole 0.5 MG TAB PO (08:22)
[2021-10-24] MEDS: Metoprolol 50 MG TAB 100 MG PO (08:22)
[2021-10-24] MEDS: Normal Saline Flush 10 ML SYR IVP (08:30)
--- NOTE | 2021-10-24 08:37 | W.PM.DS.N ---
Date of service: 10/24/21 Time of Service: 08:40 DS: Diagnosis Discharge Diagnosis (1) Ketoacidosis due to diabetes mellitus: Status: Acute (2) CAD (coronary artery disease): Status: Chronic (3) Hypertension: Status: Chronic (4) Hyperlipidemia: Status: Chronic (5) COPD (chronic obstructive pulmonary disease): (6) RLS (restless legs syndrome): Discharge Plan Disposition Patient Disposition: HOME Condition: Improving Discharge Details Reason For Visit: DKA Admit Date/Time: 10/23/21 10:45 Admit Provider: Juan Whitehead Attending Provider: Juan Whitehead Primary Care Provider: Coni Lim V Hospital Course Hospital Course: This 56-year-old male came to the hospital with chief complaint of nausea vomiting and few loose stools.? He has not been around anyone else has been sick.? He has had nausea and vomiting for about 1 week.? He has gotten worse and he came to the hospital for this.? He did a home test for coronavirus which was negative.? He has had his vaccines and booster.? He has not been traveling.? He lives at home with his who is not ill.? He has had chills but no known fever.? There is been no abdominal pain.? He did have a colonoscopy about 2 weeks ago which found 10 polyps for which were benign and 6 were premalignant.? He has had multiple surgeries include cholecystectomy tonsils, 2 hernia surgeries and multiple orthopedic surgeries.? His colonoscopy also found diverticuli.? In the emergency department he was found to have a metabolic acidosis of uncertain etiology.? He does have a history of coronary artery disease but he has had no chest pain. His initial glucose was 239. VBG ph 7.17. Anion gap elevated at 28.8. He was initially given SQ insulin 10 units x 2 and glargine insuline 10 units SQ then transferred to the ICU. His DKA resolved and he was initiated on basal/bolus insulin. His home Trulicity and metformin were held. Of significance, he endorsed missing his last dose of Trulicity. A1c was 10.2. He was not discharged on insulin, but may need an increase in his Trulicity dosage (which his PCP already is planning since he is tolerating it). His metformin was increased to 1000mg BID. He was encouraged to be vigilant and adhere to his carbohydrate controlled diet. Follow up with PCP in 1-2 weeks. Home Meds and New Rx's Prescriptions: New metformin 1,000 mg tablet extended release 24hr 1,000 mg PO BID Qty: 60 0RF Continued metoprolol succinate 200 mg tablet extended release 24 hr 200 mg PO DAILY Qty: 90 6RF Label Comments: not on pt list ranolazine 500 mg tablet extended release 12 hr 500 mg PO BID Qty: 60 3RF prochlorperazine maleate 10 mg Tablet 10 mg PO Q8H PRN0RF losartan 25 mg Tablet 12.5 mg PO DAILY 0RF gabapentin 300 mg Capsule 600 - 900 mg PO TID 0RF Rx Instructions: Take 2 caps QAM, 3 caps in afternoon, 3 caps QHS. duloxetine [Cymbalta] 60 mg Capsule,Delayed Release(Dr/Ec) 60 mg PO BID 0RF hydroxyzine pamoate 50 mg capsule 25 mg PO Q4H PRN Qty: 90 6RF Label Comments: 08/01/15 not recently Rx Instructions: prn headache pramipexole [Mirapex] 0.5 mg tablet 0.5 - 1 mg PO DIRECTED 0RF Rx Instructions: 1 tab qam 2 tab qhs aspirin [Adult Aspirin Regimen] 81 mg tablet,delayed release (DR/EC) 81 mg PO DAILY 0RF sucralfate [Carafate] 1 gram tablet 1 gm PO QACHS 0RF albuterol sulfate [ProAir HFA] 90 mcg/actuation HFA aerosol inhaler 2 puff IH Q4H 0RF simethicone [Gas Relief (simethicone)] 80 mg tablet,chewable 80 mg PO BID-QID PRN0RF Label Comments: not on pt list colchicine 0.6 mg tablet 0.6 mg PO BID 0RF Label Comments: 08/01/15 not using docusate sodium [Colace] 100 mg capsule 100 mg PO BID PRN0RF polyethylene glycol 3350 [Miralax] 17 gram/dose powder 17 gm PO DAILY PRN0RF nitroglycerin [Nitrostat] 0.4 MG tablet, sublingual 0.4 mg Sublingual PRN PRN0RF cyclobenzaprine 10 MG tablet 10 mg PO HS PRN0RF rosuvastatin [Crestor] 10 MG tablet 20 mg PO DAILY 0RF bupropion HCl 150 MG tablet extended release 12 hr 150 mg PO BID 0RF pantoprazole 40 MG tablet,delayed release (DR/EC) 40 mg PO BID 0RF Trulicity 0.75 mg/0.5 mL pen injector 0.75 mg SUBCUT DIRECTED 0RF Label Comments: INJECT 75MG ( 0.5ML) UNDER THE SKIN ONCE A WEEK -- WILL INCREASE IN 4 - 6 WEEKS IF TOLERATED Rx Instructions: weekly isosorbide mononitrate 30 mg tablet extended release 24 hr 30 mg PO QAM 0RF topiramate 25 mg tablet 25 - 50 mg PO BID 0RF Label Comments: TAKE ONE TABLET BY MOUTH EVERY MORNING Rx Instructions: 25 mg in AM, 50 mg PM. Discontinued metformin [Glucophage XR] 500 mg tablet extended release 24 hr 500 mg PO BID 0RF Jardiance 25 mg tablet 25 mg PO DAILY 0RF Label Comments: not on pt list Discharge Instructions Instructions: Diabetic Ketoacidosis (DC) Stand Alone Forms: Nursing Discharge Form Referrals: Beverly Babcock [NURSE PRACTITIONER] - 11/06/21 1:30 pm Activity:: Activity as Tolerated Equipment/Supplies:: No Equipment Needed Diet:: Resume diabetic and heart healthy diet Discharge Orders Discharge Orders: Discharge Order (Routine); Ordered 10/24/21 Ordered By: Graham Hendricks Discharge Data Discharge Date/Time-TO BE ENTERED AT DEPARTURE: 10/24/21 10:51 DS: Summary Time Spent with Patient providing and/or coordinating discharge services: Greater than 30 minutes Status at Discharge Functional status at discharge: independent ambulation Overall status at discharge: patient is back to baseline Mental Status: mental status grossly normal Speech and Movement: speech and movement normal Mood: congruent mood Affect: normal affect Exam Const General: cooperative, no acute distress and not diaphoretic Nutritional Appearance: overweight Orientation: alert, awake and oriented x3 Eyes General: appearance normal, both eyes and all related structures Sclera: sclerae normal Neck Neck: normal visual inspection and no lymphadenopathy Resp Effort & Inspection: normal respiratory effort Auscultation: clear to auscultation bilaterally, no rales and no wheezes Cardio Rate: regular rate Rhythm: regular rhythm Heart Sounds: S1 normal, S2 normal, no gallops and no murmurs GI Inspection: normal to inspection and non-distended Palpation: soft and nontender Skin General skin exam: no rashes or lesions noted Neuro General: patient alert, patient awake and patient oriented x3 Cranial Nerves: facial strength normal Cognition: normal cognition Speech: speech normal Extrem General: normal to inspection, no pedal edema and no calf tenderness Psych Mental Status: mental status grossly normal Speech and Movement: speech and movement normal Mood: congruent mood Affect: normal affect DS: Data Vitals/I&O Vitals and I&O: Vital Signs Temperature 36.5 C 10/24/21 07:44 Temperature Source Tympanic 10/24/21 07:44 Pulse 87 10/24/21 07:44 Pulse Rhythm Regular 10/24/21 00:30 Pulse 75 10/23/21 10:10 Respiratory Rate 18 10/24/21 07:44 Respiratory Effort Non-Labored 10/24/21 00:30 Respiratory Depth Normal 10/24/21 00:30 Respiratory Pattern Normal 10/24/21 00:30 Blood Pressure 115/78 10/24/21 07:44 Blood Pressure Mean 73 10/23/21 12:47 Blood Pressure Position Supine 10/23/21 09:00 Pulse Oximetry 98 10/24/21 07:44 Oxygen Delivery Method Room Air 10/24/21 07:44 Oxygen Flow Rate 0 10/24/21 07:44 Pain Level 0 10/24/21 07:44 Intake & Output 10/23/21 10/23/21 10/24/21 11:59 23:59 11:59 Intake Total 1257.451 / 1737.451 480 / 1737.451 Output Total 572024 1450 / 202 Balance 682.451 / -287.549 -970 / -287.549 Weight 113.51 kg Intake: IV 1137.451 / 1137.451 Oral 120 / 600 480 / 600 Output: Urine 57 / 5 1450 / 5 Other: Urine Color Light Agustina Light Agustina Urine Appearance Clear Urine Odor None Comment voids on commode pT reports voiding in toilet at this time patient voiding indedently in toilet, unable to measure. Stool Size Moderate Stool Characteristics Soft Liquid Brown Voiding Methods Bedside Commode Toilet Toilet Data Completed and Pending Labs on day of discharge: Labs from last 24 hours 10/23/21 10/21/21 19:30 18:25 Sodium 135 L Potassium 4.0 Chloride 104 Carbon Dioxide 21.1 Anion Gap 9.9 BUN 12 Creatinine 0.8 Estimated GFR/1.73 m2 >= 60.00 Glucose 256 H D Calcium 8.9 Path Cons Comment SEE COMMENT Preliminary micro results at discharge 10/21/21 20:40 Urine Culture - Preliminary Urine - Clean Catch PFS All Active Problems (Updated 10/23/21 @ 14:51 by Graham Hendricks MD) Ketoacidosis due to diabetes mellitus (Acute) Gastroenteritis (Acute) Metabolic acidosis (Acute) Hyperplastic colon polyp (Acute) Tubular adenoma of colon (Acute) CAD (coronary artery disease) (Chronic) a. LAD stent at [facility] [place] 2012 b. Restenosis of LAD and two more stents to LAD at [facility] 01/2014 c. 50% proximal RCA lesion d. Recurrent angina on Ranolazine e. Normal [place] scan 08/2014 Tobacco abuse (Chronic) History of TIA (transient ischemic attack) (Chronic) Obesity (Chronic) Diabetes mellitus, type II (Chronic) Hypertension (Chronic) Hyperlipidemia (Chronic) Atherosclerotic cardiovascular disease (Acute) Atypical angina (Acute) Screening for colon cancer (Acute) Encounter for colorectal cancer screening (Acute) Medical History (Updated 10/23/21 @ 14:51 by Graham Hendricks MD) Abdominal pain Abscess of right groin Acute diarrhea Asthma Cervicalgia Cholelithiasis a. cholecystectomy Chronic pain COPD (chronic obstructive pulmonary disease) Dental infection Depression Discharge planning issues Diverticulitis Duodenitis Family history of colon cancer Fibromyalgia Gastroparesis diabeticorum Gastropathy GERD (gastroesophageal reflux disease) H/O: gout Headache Hematuria Hemiplegic migraine With intractable migraine, so stated, without mention of status migrainosus Hip pain, right Hypomagnesemia Hypotensive episode Ileitis Knee pain, left Left cervical radiculopathy Leg pain, right Myalgia Myocardial infarction, inferior wall 2012 Palpitations Peripheral neuropathy Postural lightheadedness Reaction, situational RLS (restless legs syndrome) Shoulder pain, left Smoker Syncope Tachycardia, paroxysmal Thyroid nodule Surgical History (Updated 10/11/21 @ 13:22 by Katiana Penn RN) H/O surgical procedure a. cath and stents b. cholecystectomy c. back surgery History of arthroscopic surgery of shoulder History of cholecystectomy History of colonoscopy (~09/2021) History of coronary artery stent placement History of knee surgery Hx of discectomy Hx of tonsillectomy Social History (Updated 07/23/21 @ 11:56 by Ramesh De Jesus RN) Smoking/Tobacco Use Status: Current every day Tobacco Type: cigarettes Smoking risk assessment performed?: Yes Alcohol Intake: former Drug use: Daily Substance use type: marijuana Details: 2-3 joints/day Household members: spouse Housing: house Number of Children: 2 current occupation: Disabled Current gender identity: male What type of physical activity do you participate in: walking, independent ambulation and additional Details: work at home (outside work) Do you feel safe at home: Yes Do you feel safe in your relationship?: Yes
--- NOTE | 2021-10-24 10:09 | PDOC.CMDIS ---
- If Service Date Differs Date of service: 10/24/21 Time of Service: 10:09 LACE Index Scoring Tool - Questions: Length of Stay (in days): 3 Acuity (Admit via E.D.?): Yes Comorbidities: Previous M.I., Chronic Pulmonary Disease, Any Tumor E.D. Visits: 2 - Answers: Total Score: 13 Risk of Readmission: High Risk Care Management Discharge Reason for Hospitalization: Gastroenteritis Discharge Plan: Discharge home with no new services via private vehicle with [facility]. Romeo will follow up with community providers and discharge plan of care as prescribed. Romeo will also follow up with [facility] for additional community resources. Patient/Family Education Needs: Review discharge instructions, limitations, medications and plan to follow up with community providers. ask me three.
[2021-10-24 11:57] LABS: Hemoglobin A1C 10.2 % (<5.7)
== END 2021-10-24 10:51 | disposition home or self-care (01) | DRG 639 ==
LOC: ER 17:35 → MS 23:38 → ICU 10-23 15:17 → MS 10-23 16:16
PROVIDERS: Family Medicine; Nurse Practitioner Acute Care; Admitting Provider Family Medicine; Emergency Provider Physician Assistant; PCP Family Medicine; Visit Provider Family Medicine
DX: E11.10 Type 2 diabetes mellitus with ketoacidosis without coma (principal); Z79.899 Other long term (current) drug therapy; Z79.84 Long term (current) use of oral hypoglycemic drugs; I25.10 Atherosclerotic heart disease of native coronary artery without angina pectoris; I10 Essential (primary) hypertension; E78.5 Hyperlipidemia, unspecified; J44.9 Chronic obstructive pulmonary disease, unspecified; G25.81 Restless legs syndrome; F17.210 Nicotine dependence, cigarettes, uncomplicated; R11.2 Nausea with vomiting, unspecified; Z86.010 Personal history of colon polyps; Z95.5 Presence of coronary angioplasty implant and graft; Z86.73 Personal history of transient ischemic attack (TIA), and cerebral infarction without residual deficits; E66.9 Obesity, unspecified; Z68.35 Body mass index [BMI] 35.0-35.9, adult; F32.A Depression, unspecified; Z80.0 Family history of malignant neoplasm of digestive organs; E11.43 Type 2 diabetes mellitus with diabetic autonomic (poly)neuropathy; K31.84 Gastroparesis; M79.7 Fibromyalgia; K21.9 Gastro-esophageal reflux disease without esophagitis; I25.2 Old myocardial infarction; E11.42 Type 2 diabetes mellitus with diabetic polyneuropathy; F12.90 Cannabis use, unspecified, uncomplicated
CPT/HCPCS: 36415; 36416; 80048; 80051; 80053; 82805; 82962; 83690; 87635; 93005; 96361; 96372; 96374; 96375; 99285; J1650; 74177; 80329; 81003; 81015; 83036; 83735; 84484; 85025; 87086; 93010; 99219; 99233; 99239; G0378; J1200; J2405; J2765; J3490

== ENCOUNTER 2021-11-22 00:44 | Outpatient (CLI) | payer OTHER, SELFPAY ==
--- NOTE | 2021-11-22 10:30 | DI.US_ITS ---
Exam(s) US THYROID EXAM: US THYROID CLINICAL HISTORY: THYROID NODULE, E04.1. TECHNIQUE: Ultrasound thyroid performed using standard protocol. COMPARISON: No priors for comparison. FINDINGS: ISTHMUS: 2.7 mm RIGHT LOBE: Size: 5.1 cc by 1.1 AP by 1.1 transverse cm Echogenicity: Normal. Vascularity: Normal. Nodules: There is a 1.7 AP by 1.5 transverse by 1.3 craniocaudad cm solid hypoechoic well-circumscrib ed nodule. No internal echogenic foci are seen. This is consistent with a TI-RADS level 5 nodule. LEFT LOBE: Size: 4.6 cc by 1.4 AP by 1.3 transverse cm Echogenicity: Normal. Vascularity: Normal. Nodules: There is a 0.8 x 0.6 x 0.6 cm cyst in the inferior pole. OTHER FINDINGS: None. IMPRESSION: TI-RADS level 5 nodule in the inferior pole of the right lobe. Due to its size, FNA is recommended. DATA REPOSITORY:
== END 2021-11-22 01:04 ==
PROVIDERS: PCP Family Medicine; Visit Provider Family Medicine
DX: E04.1 Nontoxic single thyroid nodule (principal)
CPT/HCPCS: 76536

== ENCOUNTER 2021-12-25 00:53 | Outpatient (CLI) | payer OTHER, SELFPAY ==
--- NOTE | 2021-12-25 | DI.CTLCSR_ITS ---
Exam(s) CT CHEST LUNG CANCER SCREEN EXAM: CT CHEST LUNG CANCER SCREEN CLINICAL HISTORY: SMOKER, F17.210, LUNG CA SCREENING TECHNIQUE: Imaging Protocol: Axial computed tomography images with coronal and sagittal reformatted images were created and reviewed COMPARISON: Portable chest 07 June 2021 FINDINGS: Tracheobronchial tree: Patent where visualized. Mediastinum and Nena: No dominant adenopathy or fluid collection. Pulmonary parenchyma: No consolidation or dominant measurable mass. Mild emphysematous changes. Lung Nodules: A few scattered tiny calcified and noncalcified nodules. No suspicious nodules. Pleura: No effusion or pneumothorax. Heart: The heart is not dilated. The coronary arteries show calcification. A coronary artery stent i s noted. Aorta: Thoracic aorta non-dilated. Upper abdomen: Unremarkable. Status post cholecystectomy. Bones: Mild degenerative changes and mild scoliosis. Soft Tissues: Unremarkable. IMPRESSION: No suspicious pulmonary nodules. Category Lung RADS Cat 2 - Benign Appearance / Behavior: Nodules with a very low likelihood of becomi ng a clinically active cancer due to size or lack of growth Lung-RADS 1.0 CATEGORIES: Category 0 - Prior chest CT exam(s) being located for comparison. Category 1 - Annual screening in 12 months. No nodules or definitely benign nodules. Category 2 - Annual screening in 12 months. Benign appearance. Nodules with low likelihood of becomin g active cancer. Category 3 - 6-month follow-up. Probably benign. Short-term follow-up suggested. Nodules with low lik elihood of becoming active cancer. Category 4A - 3-month follow-up and CT/PET if >8 mm in size. Suspicious finding. Findings which requi re additional testing. Category 4B - Findings which require additional testing and tissue sampling. Category 4X - Category 3 or 4 nodules with additional features or imaging findings that increases the suspicion of malignancy. Modifier S- Potentially clinically significant findings (non lung cancer) RADIATION DOSE DELIVERED: 95.12mGy.cm Total DLP 2.21mGy CTDIvol DATA REPOSITORY: All CT scans at this facility are submitted to the National Radiology Data Registry (NRDR) Dose Index Registry (DIR) with the [employer] (ACR). RADIATION OPTIMIZATION: All CT scans at this facility use at least one of these dose optimization te chniques: automated exposure control; mA and/or kV adjustment per patient size (includes targeted exa ms where dose is matched to clinical indication); or iterative reconstruction.
== END 2021-12-25 01:13 ==
LOC: DI 00:53
PROVIDERS: PCP Family Medicine; Visit Provider Family Medicine
DX: Z12.2 Encounter for screening for malignant neoplasm of respiratory organs (principal); F17.210 Nicotine dependence, cigarettes, uncomplicated; J43.8 Other emphysema; R91.8 Other nonspecific abnormal finding of lung field
CPT/HCPCS: 71271

== ENCOUNTER 2022-01-13 02:13 | Outpatient (CLI) | payer OTHER, SELFPAY ==
--- NOTE | 2022-01-13 07:00 | DI.US_ITS ---
Exam(s) US NEEDLE LOCAL OTHER WO RAD EXAM: US NEEDLE LOCAL OTHER WO RAD CLINICAL HISTORY: right thyroid tr5 nodule, E04.1. COMPARISON: No exams were available for comparison TECHNIQUE: Ultrasound was provided for Dr. Landaverde for guidance with performing thyroid FNA. FINDINGS: Please see procedure note for details. DATA REPOSITORY:
--- NOTE | 2022-01-13 08:35 | PAPNONF_PTH ---
PATIENT: Romeo Coe LOC: [facility] U#:[id number] AGE/SX: 56/M ROOM: RE01/13/[address]: Kevin Landaverde MD : [id number] BED: DIS: 01/13/2022 SPEC #: [id number] RECD: 01/13/22 13:04 STATUS: MARIA LUZ SULLIVAN #: [id number] HILLARY: 01/13/22 08:[address]: Kevin Landaverde DEPT: [facility] Cytology RECD BY: Maria Luisa Naranjo ENTERED: 01/13/22 13:05 SP TYPE: RUPA SAL DR: Coni Lim V Tissues: 1 - BODY FLUID CYTO-FINE NEEDLE ASPIRATE-[facility] Procedures: BODY FLUID CYTO-FINE NEEDLE ASPIRATE-[facility] Comments:
--- NOTE | 2022-01-13 10:26 | OPPNE_ITS ---
Procedure Note Date of procedure: 01/13/22 Procedure: Ultrasound-guided FNA of right thyroid nodule, pathologist present Procedure Diagnosis: TR 5 right thyroid nodule Procedure Indications: Patient with the above problems. Options were explained to the patient regarding further management. He elected to undergo the above procedure. Procedure Description: The patient was positioned in supine position and prepped and draped in appropriate fashion. Ultrasound was used to localize the right inferior pole thyroid nodule of concern and then 1% lidocaine with 1/100,000 epinephrine injected into the skin and subcutaneous tissues overlying the nodule. A 25- gauge needle was repeatedly passed into the thyroid nodule taking a total of 5 passes to collect sample. Air dried slides as well as quick prep slides and CytoLyt was prepared. The patient tolerated the procedure well. Sterile dressing was applied after ensuring adequate hemostasis and the patient was able to sit and then stand without difficulty. I will call the patient with results. He will remove the bandage tonight. He will not replace it. He will call with any signs of infection or if he does not hear from me within 1 week. He has no further questions. He is comfortable with the plan.
== END 2022-01-13 02:33 ==
LOC: DI 02:14
PROVIDERS: PCP Family Medicine; Visit Provider Otolaryngology
DX: E04.1 Nontoxic single thyroid nodule (principal)
CPT/HCPCS: 76942; 88104

== ENCOUNTER → 2022-01-21 09:45 | Outpatient (BNVA) | payer OTHER, SELFPAY | PROVIDERS: PCP Family Medicine; Visit Provider Internal Medicine Cardiovascular Disease | DX: I25.10 Atherosclerotic heart disease of native coronary artery without angina pectoris (principal); Z72.0 Tobacco use | CPT/HCPCS: 99214; 99213 ==

== ENCOUNTER 2022-02-25 11:17 | Outpatient (REF) | payer OTHER, SELFPAY ==
[2022-02-25 15:54] LABS: BUN 11 mg/dL (7-18); CREATININE 0.9 mg/dL (0.70-1.30); Calcium 9.4 mg/dL (8.5-10.1); Chloride 102 mmol/L (98-107); Glucose 169 mg/dL (74-106); Potassium 3.9 mmol/L (3.5-5.1); Sodium 137 mmol/L (136-145)
== END 2022-02-25 11:18 | disposition home or self-care (01) ==
LOC: NCHCN 11:17
PROVIDERS: PCP Family Medicine; Visit Provider Family Medicine
DX: E11.9 Type 2 diabetes mellitus without complications (principal); I10 Essential (primary) hypertension
CPT/HCPCS: 80048

== ENCOUNTER 2022-05-16 15:12 | Outpatient (REF) | payer OTHER, SELFPAY ==
[2022-05-16 18:53] LABS: ESR 14 mm/hr (0-20)
[2022-05-16 19:37] LABS: C-Reactive Protein 0.55 mg/dL (0.0-0.3); Calculated LDL 89 mg/dL (<100); Cholesterol 171 mg/dL (<200); HDL Cholesterol 44 mg/dL (40-60); Triglyceride 193 mg/dL (<150)
[2022-05-18 16:03] LABS: Rheumatoid Factor <8.6 IU/mL (<12.0)
[2022-05-19 13:53] LABS: ANA Interpretation Negative (Negative)
== END 2022-05-16 15:13 | disposition home or self-care (01) ==
LOC: NCHCN 15:12
PROVIDERS: PCP Family Medicine; Visit Provider Family Medicine
DX: I25.10 Atherosclerotic heart disease of native coronary artery without angina pectoris (principal); E11.9 Type 2 diabetes mellitus without complications; I10 Essential (primary) hypertension; M25.59 Pain in other specified joint; E78.5 Hyperlipidemia, unspecified
CPT/HCPCS: 80061; 85652; 86038; 86140; 86431

== ENCOUNTER 2023-01-20 10:36 | Outpatient (CLI) | payer OTHER, MEDICAID, SELFPAY ==
--- NOTE | 2023-01-20 10:30 | RT.EKG_ITS ---
APPROVED REPORT Exam: Resting ECG Reason for Exam: cp Patient Location: O HR:84 bpm ECG Measurements Heart Rate 84 AXIS NM 155 P 19 QRSd 88 QRS 15 QT 343 T 31 QTc 406 Conclusion Sinus rhythm...normal P axis, V-rate 50- 99 Normal Electrocardiogram
== END 2023-01-20 10:37 | disposition home or self-care (01) ==
LOC: DI.CARD 10:45
PROVIDERS: PCP Family Medicine; Visit Provider Internal Medicine Cardiovascular Disease
DX: R07.9 Chest pain, unspecified (principal)
CPT/HCPCS: 93010

== ENCOUNTER → 2023-01-20 10:36 | Outpatient (BNVA) | payer OTHER, MEDICAID, SELFPAY | PROVIDERS: PCP Family Medicine; Referring Provider Family Medicine; Visit Provider Internal Medicine Cardiovascular Disease | DX: I25.10 Atherosclerotic heart disease of native coronary artery without angina pectoris (principal); I10 Essential (primary) hypertension | CPT/HCPCS: 93005; 99214 ==

== ENCOUNTER 2023-02-02 01:53 | Outpatient (CLI) | payer OTHER, SELFPAY ==
--- NOTE | 2023-02-02 07:45 | DI.NM_ITS ---
APPROVED REPORT Exam: Pharmacologic Patient Location: Out-Patient Room/Bed: Stress Nurse: Alexus Bangura RN Ordering Provider:MOE AVILA, Contact Number: BMI: 34.43 Baseline Rhythm: Sinus Rhythm Indications: CAD, Chest pain Medical History Medical History: UA, Smoker, DM2, HTN, HLD, Obesity, TIA, Asthma, COPD, GERD, PA-2012 Cardiac Medications: Rosuvastatin, Nitro, Metoprolol succinate, Amlodipine, Metformin, Losartan, Herb pentin, Aspirin, Albuterol Allergies: Thallium, Cipro, lisinopril Cardiac Risk Factors: Family Hx, CVD, COPD, HTN, DM, Smoker, HLD, Asthma, Obesity Previous Cardiac Procedures: Stent Pretest Chest Pain Characteristics: None Exercise History: Sedentary Physical Disabilities: None Lung Sounds: Clear to auscultation Heart Sounds: Regular Stress Test Details Test: Exercise stress converted to pharmacologic stress due to failure to obtain a diagnostic stress test. Nuclear Acquisition: Stress Tc-99m/Stress Tc-99m 1 day Rest Isotope: Tc-99m Sestamibi. Dose: 11 Date: 02/02/2023 Injection Time: 1110 Stress Isotope: Tc-99m Sestamibi. Dose: 36 Date: 02/02/2023 Injection Time: 1322 HR Resting HR Supine: 70 bpm Max Heart Rate (APMHR): 165.281245 bpm Resting HR Standin bpm Target HR (85% APMHR): 140.564146 bpm Max HR Achieved: 107 bpm % of APMHR: 64.85 Recovery HR: 79 bpm HR response to stress: Normal HR response to stress BP Resting BP Supine: 132/84 mmHg Resting BP Standin/70 mmHg Max BP: 150/80 mmHg Recovery BP: 132/90 mmHg BP response to stress: Normal blood pressure response to stress. ECG Resting ECG: Sinus Rhythm Ectopy: None Stress ECG: Sinus Rhythm ST Change: No significant ST segment changes noted Arrhythmia: None Recovery ECG: Sinus Rhythm Recovery ST Change: No significant ST segment changes noted Recovery Arrhythmia: None Clinical Reason for Termination: Fatigue Rate Pressure Product: 52812 Stress ECG Conclusion 1. Resting electrocardiogram was within normal limits 2. Patient underwent testing using pharmacologic stress with regadenoson 3. Peak heart rate achieved was 65% of predicted for age 4. Electrocardiographic portion of the test was nondiagnostic 5. See MPI report Stress Test Summary STAGE Time (mins) Speed (mph) Grade (%) HR BP SpO2 SYMPTOMS METS Supine 70 132/84 98 Standing 72 112/70 1 3 1.7 10 112/60 96 SOB @ 0345 4.5 1 min post Lexiscan injection 75 120/64 96 SOB 3 min post Lexiscan injection 88 150/80 98 SOB, Dizziness 6 min post Lexiscan injection 79 132/90 98 Symptoms resolved MPI Conclusion Myocardial perfusion is normal. There is no ischemia or evidence of prior infarction EF 53%, with normal wall motion Radiologist Interpretation Radiologist agrees with Merchandising Consultant's Interpretation. Radiologist Interpretation by: Brown Hussein MD Interpretation Date/Time: 02/03/2023 15:33:49
[2023-02-02] MEDS: Regadenoson 0.4 MG/5 ML SYR IVP (13:32)
== END 2023-02-02 02:13 ==
LOC: DI 01:54
PROVIDERS: PCP Family Medicine; Visit Provider Internal Medicine Cardiovascular Disease
DX: I25.10 Atherosclerotic heart disease of native coronary artery without angina pectoris (principal); R07.9 Chest pain, unspecified
CPT/HCPCS: 78452; 93016; 93018; 93017; J2785

== ENCOUNTER 2023-02-27 15:10 | Outpatient (REF) | payer SELFPAY ==
[2023-02-27 15:55] LABS: ALT 17 U/L (16-63); AST 15 U/L (15-37); Albumin 3.8 g/dL (3.4-5.0); Alkaline Phosphatase 62 U/L (46-116); Anion Gap 11.6 mmol/L (3-11); BUN 14 mg/dL (7-18); Bilirubin, Total 0.3 mg/dL (0.2-1.0); CO2 24.4 mmol/L (21.0-32.0); Calcium 9.4 mg/dL (8.5-10.1); Chloride 106 mmol/L (98-107); Estimated GFR 88.88 (mL/min/1.73m2); FREE T4 1.02 ng/dL (0.76-1.46); Glucose 252 mg/dL (74-106); Potassium 3.7 mmol/L (3.5-5.1); Sodium 142 mmol/L (136-145); TSH 1.67 uIU/mL (0.36-3.74); Total Protein 7.5 g/dL (6.4-8.2)
== END 2023-02-27 15:11 | disposition home or self-care (01) ==
LOC: NCHCN 15:10
PROVIDERS: PCP Family Medicine; Visit Provider Family Medicine
DX: E11.9 Type 2 diabetes mellitus without complications (principal); I25.10 Atherosclerotic heart disease of native coronary artery without angina pectoris; E78.5 Hyperlipidemia, unspecified; I10 Essential (primary) hypertension; E04.1 Nontoxic single thyroid nodule
CPT/HCPCS: 80053; 84439; 84443

== ENCOUNTER 2023-04-07 15:31 | Emergency (ER) | payer OTHER, MEDICAID, SELFPAY ==
[2023-04-07] VITALS (83 sets, daily range): BP systolic 71–146; BP diastolic 46–95; PULSE 42–107; RESP 0–32; O2SAT 95–100
--- NOTE | 2023-04-07 15:30 | RT.EKG_ITS ---
APPROVED REPORT Exam: Resting ECG Reason for Exam: syncope Patient Location: E HR:103 bpm ECG Measurements Heart Rate 103 AXIS ID 160 P 59 QRSd 83 QRS 51 QT 332 T 61 QTc 436 Conclusion Sinus tachycardia...rate> [address] segment or T wave abnormalities to suggest occlusive AK
--- NOTE | 2023-04-07 15:45 | DI.RAD_ITS ---
Exam(s) XR PORTABLE CHEST AP EXAM: XR PORTABLE CHEST AP CLINICAL HISTORY: post line. TECHNIQUE: 2D digital imaging was performed. COMPARISON: CR XR PORTABLE CHEST AP from 06/07/2021 FINDINGS: Single AP portable view. Patient is now intubated. Distal tip of the endotracheal tube is at the level of the inferior aspect of the clavicles. Approximately 6 cm above the veronica. There is also an NG tube in place which is in the gastric fundus Heart size is normal. Left coronary artery stent noted. Mediastinum is not widened. There is some infiltrate in the left lower lobe retrocardiac region. No other confluent infiltrate s een nor obvious pleural effusions and there is no pneumothorax. No acute fractures evident. No evidence of pulmonary edema. IMPRESSION: ET tube tip is approximately 6 cm above the veronica. NG tube is in the gastric fundus. There appears to be some infiltrate in the left lower lobe. Coronary artery stent noted left side of heart. Heart size normal. No pulmonary edema. DATA REPOSITORY: RADIATION DOSE DELIVERED:
--- NOTE | 2023-04-07 15:45 | DI.CT_ITS ---
Exam(s) CT HEAD WO EXAM: CT HEAD WO CLINICAL HISTORY: unresponsive. TECHNIQUE: Imaging Protocol: Axial computed tomography images with coronal and sagittal reformatted images were created and reviewed COMPARISON: CT HEAD WITHOUT CONTRAST from 03/14/2015 FINDINGS: There are no skull fractures. There is mucosal thickening in both maxillary sinuses without fluid lev els therein. Sphenoid sinuses are clear as are the frontal sinuses. Mastoid air cells are clear. Incidentally noted are intraosseous apical lucencies around multiple upper teeth. There is no evidence of intracranial hemorrhage, mass effect, or shift of midline structures. There are no extra-axial fluid collections. The ventricles are not enlarged or shifted and there is no blo od within the ventricular system nor within the basal cisterns. IMPRESSION: No acute intracranial findings on this noninfused CT scan of the brain. Patient intubated. There is also an NG tube in place. Called to ER. RADIATION DOSE DELIVERED: 1,046.59mGy.cm Total DLP DATA REPOSITORY: All CT scans at this facility are submitted to the National Radiology Data Registry (NRDR) Dose Index Registry (DIR) with the [employer] ([employer]). RADIATION OPTIMIZATION: All CT scans at this facility use at least one of these dose optimization te chniques: automated exposure control; mA and/or kV adjustment per patient size (includes targeted exa ms where dose is matched to clinical indication); or iterative reconstruction.
[2023-04-07] MEDS: Etomidate 20 MG/10 ML VIAL 30 MG IVP (15:52)
[2023-04-07] MEDS: Rocuronium 50 MG/5 ML SYR 100 MG IVP (15:52)
[2023-04-07] MEDS: PROPOFOL 1,000 MG/100 ML BTL 25.7 MG (15:59)
[2023-04-07] MEDS: PROPOFOL 500 MG/50 ML BTL 26.232 MG IV (15:59)
[2023-04-07 16:08] LABS: Lactate 1.1 mmol/L (0.6-1.4)
[2023-04-07 16:11] LABS: Abs Immature Grans 0.05 10^3/uL (0.0-0.06); Absolute Basophil Count 0.07 10^3/uL (0.0-0.2); Absolute Eosinophil Count 0.36 10^3/uL (0.0-0.7); Absolute Lymphocyte Count 2.46 10^3/uL (1.2-3.4); Absolute Monocyte Count 0.71 10^3/uL (0.1-0.8); Absolute Neutrophil Count 3.89 10^3/uL (1.2-6.7); Basophils % 0.9; Eosinophils % 4.8; HCT 41.2 % (40.0-50.0); Immature Grans % 0.7; Lymphocytes % 32.6; MCH 29.4 pg (27.0-33.0); MCV 86 fL (80-95); MPV 10.5 fL (8.0-11.0); Monocytes % 9.4; Neutrophils % 51.6; Platelet Count 208 10^3/uL (130-400); RBC 4.77 10^6/uL (4.36-5.78); RDW 13.9 % (11.8-14.1); WBC 7.54 10^3/uL (4.4-10.8)
--- NOTE | 2023-04-07 16:20 | NUR.NOTE ---
Nursing Note: Pt unresponsive and unable to protect airway. Time out at 1550. Etomidate and Rocconium administered at 1551. 1556 - ETT 8.0, 24 at lip placed without complication by . 16F OG placed, awaiting xray confirmation before suction. 16F boucher placed at 1608.
[2023-04-07 16:24] LABS: Bilirubin Small (Negative); Blood Negative (Negative); Clarity Clear (Clear); Glucose Negative (Negative); Ketones Trace mg/dL (Negative); Leukocyte Esterase Negative (Negative); Nitrite Negative (Negative); Specific Gravity >= 1.030 (1.005-1.025); Urobilinogen 0.2 mg/dL (Up to 0.2)
[2023-04-07 16:24] LABS: PTT Activated 23.7 sec (21.5-31.9); Prothrombin Time 10.4 sec (9.3-11.0)
[2023-04-07 16:43] LABS: Bacteria Rare HPF (Negative); C & S Indicated? No; Casts 0-2 Hyaline LPF (Negative); Crystals Negative HPF (Negative); Epithelial Cells Rare HPF (Negative); Mucus Trace (Negative); Other Cells Few Transitional (Negative); RBC 0-2 HPF (0-2); WBC Negative HPF (0-5)
--- NOTE | 2023-04-07 16:43 | W.ED.GENAD ---
Discharge Plan Disposition Patient Disposition: Transfer-Acute Inpatient Care Specific Acute Inpt Facility: [facility] Condition: Critical Discharge Details Clinical Impression: Coma of unknown cause Primary Care Provider: Coni Lim V ED Provider: Keeley Smith Home Meds and New Rx's Prescriptions: No Action ranolazine 500 mg tablet extended release 12 hr 500 mg PO BID Qty: 60 3RF prochlorperazine maleate 10 mg Tablet 10 mg PO Q8H PRN losartan 25 mg Tablet 12.5 mg PO DAILY gabapentin 300 mg Capsule 600 - 900 mg PO TID Rx Instructions: Take 2 caps QAM, 3 caps in afternoon, 3 caps QHS. duloxetine [Cymbalta] 60 mg Capsule,Delayed Release(Dr/Ec) 60 mg PO BID amlodipine 5 mg tablet 5 mg PO DAILY hydroxyzine pamoate 50 mg capsule 25 mg PO Q4H PRN Qty: 90 Patient Comments: 08/01/15 not recently Rx Instructions: prn headache pramipexole [Mirapex] 0.5 mg tablet 0.5 - 1 mg PO DIRECTED Rx Instructions: 1 tab qam 2 tab qhs aspirin [Adult Aspirin Regimen] 81 mg tablet,delayed release (DR/EC) 81 mg PO DAILY sucralfate [Carafate] 1 gram tablet 1 gm PO QACHS albuterol sulfate [ProAir HFA] 90 mcg/actuation HFA aerosol inhaler 2 puff IH Q4H simethicone [Gas Relief (simethicone)] 80 mg tablet,chewable 80 mg PO BID-QID PRN Patient Comments: not on pt list colchicine (gout) 0.6 mg tablet 0.6 mg PO BID Patient Comments: 08/01/15 not using docusate sodium [Colace] 100 mg capsule 100 mg PO BID PRN polyethylene glycol 3350 [Miralax] 17 gram/dose powder 17 gm PO DAILY PRN metoprolol succinate 200 mg tablet extended release 24 hr See Rx Instructions .ROUTE .COMPLEX Qty: 90 3RF Dose Instruction: TAKE ONE TABLET BY MOUTH DAILY AT 9AM Rx Instructions: TAKE ONE TABLET BY MOUTH DAILY AT 9AM nitroglycerin [Nitrostat] 0.4 MG tablet, sublingual 0.4 mg Sublingual PRN PRN cyclobenzaprine 10 MG tablet 10 mg PO HS PRN rosuvastatin [Crestor] 10 MG tablet 20 mg PO DAILY bupropion HCl 150 MG tablet extended release 12 hr 150 mg PO BID pantoprazole 40 MG tablet,delayed release (DR/EC) 40 mg PO BID Trulicity 0.75 mg/0.5 mL pen injector 0.75 mg SUBCUT DIRECTED Patient Comments: INJECT 75MG ( 0.5ML) UNDER THE SKIN ONCE A WEEK -- WILL INCREASE IN 4 - 6 WEEKS IF TOLERATED Rx Instructions: weekly isosorbide mononitrate 30 mg tablet extended release 24 hr 30 mg PO QAM metformin 1,000 mg tablet extended release 24hr 1,000 mg PO BID Qty: 60 0RF topiramate 25 mg tablet 25 - 50 mg PO BID Patient Comments: TAKE ONE TABLET BY MOUTH EVERY MORNING Rx Instructions: 25 mg in AM, 50 mg PM. Medical Decision Making 57yo M arrives unresponsive via EMS. History from EMS and from on phone. Witnessed collapse, unresponsive, normal vital signs for EMS. Unresponsive on arrival with GCS of 3; dyscongugate gaze. Intubated for airway protection; started on propofol gtt post sedation. Post intubation CXR reviewed and ETT advanced 2cm. EKG sinus tachycardia with rate in 100's, appropriate intervals, no ST segement or T wave abnormalities to suggest occlusive AL. Transported to CT scanner; CT non con with no acute intracranial hemmoraghe on my view, agree with radiology read below. Labs reviewed as below; CBC & CMP unremarkable, normal lactic, normal troponin x 2, UA without infection, ETOH/salicylate negative. Transiently hypotensive on propofol which was briefly weaned off; off sedation patient now with some twitching to noxious stimuli all 4 extremities without full or purposeful movement, PERRL gaze no congugate. Propofol restarted at lower rate with addition of versed. Unclear etiology of current presentation; unlikely sepsis and nothing on history from suggest meningitis/encephalitis as onset appears incredibly acute. Will cover with CTX/vancomycin out of an abundance of caution. Body habitus precludes reasonable chance of success with LP. CT acevedo-scan with contrast ordered and reviewed; reads as below, no acute cerebral infarct on radiology read, no significant acute findings on chest/abd/pelvis. [place] [facility] [place]; no beds available, his read of CT head is concerning for midbrain infarct which regretably does fit clinically. No acute interventions indicated in our discussion; MRI recommended. Discussed with [facility] ICU service and accepted to MICU under Dr. Lemus, plan for propofol only for sedation with low dose peripheral levophed if necessary. Pending transport to [facility]. Imaging Data Radiologic Study: Imaging: CT Scan Radiologist's impression: IMPRESSION: No acute intracranial findings on this noninfused CT scan of the brain. Patient intubated.? There is also an NG tube in place. Radiologic Study #2: Imaging: CT Scan Radiologist's impression: IMPRESSION: 1. Patent carotid arteries in the neck.? No hemodynamically significant stenosis.? 2.? Patent vertebral arteries. 3.? Patent intracranial arteries. 4. No ring enhancing lesions in the brain.? No abnormal in and meningeal enhancement.? No obvious territorial infarct.? No hemorrhage. Radiologic Study #3: Imaging: CT Scan Radiologist's impression: IMPRESSION: 1. Endotracheal tube in satisfactory position above the veronica.? An NG tube is noted with its distal tip in the gastric fundus region. 2. There is mild infiltrate in both lung bases.? No large pleural effusions.? No pneumothorax.? No fractures. 3. No evidence of aortic dissection. 4. Gallbladder surgically absent.? Biliary tree is not dilated. There is a Levy catheter in the urinary bladder.? The bladder is not distended. No acute appearing findings in the abdomen and pelvis. No fractures. Radiologic Study #4: Imaging: CT Scan Radiologist's impression: IMPRESSION: No evidence of cervical spine fracture, malalignment, nor acute compromise of the cervical spinal canal. Patient is intubated. Radiologic Study #5: Imaging: X-Ray Radiologist's impression: IMPRESSION: ET tube tip is approximately 6 cm above the veronica. NG tube is in the gastric fundus. There appears to be some infiltrate in the left lower lobe. Coronary artery stent noted left side of heart.? Heart size normal.? No pulmonary edema. Lab Data Lab results reviewed: Yes I reviewed the patient's lab results. Labs: 04/07/23 16:10 Urine - Cath Levy Indwelling Urine Culture - Pending 04/07/23 18:42 Blood Blood Culture - Pending 04/07/23 18:42 Blood Blood Culture - Pending Laboratory Tests Range/Units 04/07/23 04/07/23 04/07/23 15:40 15:40 15:40 WBC (4.4-10.8) 10^3/uL 7.54 RBC (4.36-5.78) 10^6/uL 4.77 Hgb (13.5-17.5) g/dL 14.0 Hct (40.0-50.0) % 41.2 MCV (80-95) fL 86 MCH (27.0-33.0) pg 29.4 MCHC (32.0-36.0) % 34.0 RDW (11.8-14.1) % 13.9 Plt Count (130-400) 10^3/uL 208 MPV (8.0-11.0) fL 10.5 Immature Gran % 0.7 Neutrophils % 51.6 Lymphocytes % 32.6 Monocytes % 9.4 Eosinophils % 4.8 Basophils % 0.9 Nucleated RBC % (0.0-0.3) % 0.0 Absolute Neutrophils (1.2-6.7) 10^3/uL 3.89 Absolute Lymphocytes (1.2-3.4) 10^3/uL 2.46 Absolute Monocytes (0.1-0.8) 10^3/uL 0.71 Absolute Eosinophils (0.0-0.7) 10^3/uL 0.36 Absolute Basophils (0.0-0.2) 10^3/uL 0.07 PT (9.3-11.0) sec INR (0.9-1.1) APTT (21.5-31.9) sec VBG Lactate (0.6-1.4) mmol/L 1.1 Sodium (136-145) mmol/L 146 H Potassium (3.5-5.1) mmol/L 3.4 L Chloride (98-107) mmol/L 111 H Carbon Dioxide (21.0-32.0) mmol/L 22.1 Anion Gap (3-11) mmol/L 12.9 H BUN (7-18) mg/dL 10 Creatinine (0.70-1.30) mg/dL 1.1 Est GFR (CKD-EPI 2020) (mL/min/1.73m2) 79.28 Glucose (74-106) mg/dL 165 H Calcium (8.5-10.1) mg/dL 8.8 Magnesium (1.8-2.4) mg/dL 1.7 L Total Bilirubin (0.2-1.0) mg/dL 0.4 AST (15-37) U/L 15 ALT (16-63) U/L 19 Alkaline Phosphatase (46-116) U/L 54 Troponin I (<or=60) ng/L < 50 Total Protein (6.4-8.2) g/dL 6.7 Albumin (3.4-5.0) g/dL 3.5 Urine Color (Yellow) Urine Clarity (Clear) Urine pH (5-8) Ur Specific [place] (1.005-1.025) Urine Protein (Negative) mg/dL Urine Ketones (Negative) mg/dL Urine Blood (Negative) Urine Nitrite (Negative) Urine Bilirubin (Negative) Urine Urobilinogen (Up to 0.2) mg/dL Ur Leukocyte Esterase (Negative) Urine RBC (0-2) HPF Urine WBC (0-5) HPF Ur Epithelial Cells (Negative) HPF Urine Crystals (Negative) HPF Urine Bacteria (Negative) HPF Urine Casts (Negative) LPF Urine Mucus (Negative) Urine Other (Negative) Ur Culture Indicated? Urine Glucose (Negative) mg/dL Salicylates (<2.8) mg/dL Ethyl Alcohol (<10) mg/dL Range/Units 04/07/23 04/07/23 04/07/23 15:40 16:10 18:42 WBC (4.4-10.8) 10^3/uL RBC (4.36-5.78) 10^6/uL Hgb (13.5-17.5) g/dL Hct (40.0-50.0) % MCV (80-95) fL MCH (27.0-33.0) pg MCHC (32.0-36.0) % RDW (11.8-14.1) % Plt Count (130-400) 10^3/uL MPV (8.0-11.0) fL Immature Gran % Neutrophils % Lymphocytes % Monocytes % Eosinophils % Basophils % Nucleated RBC % (0.0-0.3) % Absolute Neutrophils (1.2-6.7) 10^3/uL Absolute Lymphocytes (1.2-3.4) 10^3/uL Absolute Monocytes (0.1-0.8) 10^3/uL Absolute Eosinophils (0.0-0.7) 10^3/uL Absolute Basophils (0.0-0.2) 10^3/uL PT (9.3-11.0) sec 10.4 INR (0.9-1.1) 1.0 APTT (21.5-31.9) sec 23.7 VBG Lactate (0.6-1.4) mmol/L Sodium (136-145) mmol/L Potassium (3.5-5.1) mmol/L Chloride (98-107) mmol/L Carbon Dioxide (21.0-32.0) mmol/L Anion Gap (3-11) mmol/L BUN (7-18) mg/dL Creatinine (0.70-1.30) mg/dL Est GFR (CKD-EPI 2020) (mL/min/1.73m2) Glucose (74-106) mg/dL Calcium (8.5-10.1) mg/dL Magnesium (1.8-2.4) mg/dL Total Bilirubin (0.2-1.0) mg/dL AST (15-37) U/L ALT (16-63) U/L Alkaline Phosphatase (46-116) U/L Troponin I (<or=60) ng/L < 50 Total Protein (6.4-8.2) g/dL Albumin (3.4-5.0) g/dL Urine Color (Yellow) Yellow Urine Clarity (Clear) Clear Urine pH (5-8) 5.0 Ur Specific [place] (1.005-1.025) >= 1.030 H Urine Protein (Negative) mg/dL 30 H Urine Ketones (Negative) mg/dL Trace H Urine Blood (Negative) Negative Urine Nitrite (Negative) Negative Urine Bilirubin (Negative) Small H Urine Urobilinogen (Up to 0.2) mg/dL 0.2 Ur Leukocyte Esterase (Negative) Negative Urine RBC (0-2) HPF 0-2 Urine WBC (0-5) HPF Negative Ur Epithelial Cells (Negative) HPF Rare Urine Crystals (Negative) HPF Negative Urine Bacteria (Negative) HPF Rare Urine Casts (Negative) LPF 0-2 Hyaline Urine Mucus (Negative) Trace Urine Other (Negative) Few Transitional Ur Culture Indicated? No Urine Glucose (Negative) mg/dL Negative Salicylates (<2.8) mg/dL Ethyl Alcohol (<10) mg/dL Range/Units 04/07/23 04/07/23 18:42 18:42 WBC (4.4-10.8) 10^3/uL RBC (4.36-5.78) 10^6/uL Hgb (13.5-17.5) g/dL Hct (40.0-50.0) % MCV (80-95) fL MCH (27.0-33.0) pg MCHC (32.0-36.0) % RDW (11.8-14.1) % Plt Count (130-400) 10^3/uL MPV (8.0-11.0) fL Immature Gran % Neutrophils % Lymphocytes % Monocytes % Eosinophils % Basophils % Nucleated RBC % (0.0-0.3) % Absolute Neutrophils (1.2-6.7) 10^3/uL Absolute Lymphocytes (1.2-3.4) 10^3/uL Absolute Monocytes (0.1-0.8) 10^3/uL Absolute Eosinophils (0.0-0.7) 10^3/uL Absolute Basophils (0.0-0.2) 10^3/uL PT (9.3-11.0) sec INR (0.9-1.1) APTT (21.5-31.9) sec VBG Lactate (0.6-1.4) mmol/L Sodium (136-145) mmol/L Potassium (3.5-5.1) mmol/L Chloride (98-107) mmol/L Carbon Dioxide (21.0-32.0) mmol/L Anion Gap (3-11) mmol/L BUN (7-18) mg/dL Creatinine (0.70-1.30) mg/dL Est GFR (CKD-EPI 2020) (mL/min/1.73m2) Glucose (74-106) mg/dL Calcium (8.5-10.1) mg/dL Magnesium (1.8-2.4) mg/dL Total Bilirubin (0.2-1.0) mg/dL AST (15-37) U/L ALT (16-63) U/L Alkaline Phosphatase (46-116) U/L Troponin I (<or=60) ng/L Total Protein (6.4-8.2) g/dL Albumin (3.4-5.0) g/dL Urine Color (Yellow) Urine Clarity (Clear) Urine pH (5-8) Ur Specific [place] (1.005-1.025) Urine Protein (Negative) mg/dL Urine Ketones (Negative) mg/dL Urine Blood (Negative) Urine Nitrite (Negative) Urine Bilirubin (Negative) Urine Urobilinogen (Up to 0.2) mg/dL Ur Leukocyte Esterase (Negative) Urine RBC (0-2) HPF Urine WBC (0-5) HPF Ur Epithelial Cells (Negative) HPF Urine Crystals (Negative) HPF Urine Bacteria (Negative) HPF Urine Casts (Negative) LPF Urine Mucus (Negative) Urine Other (Negative) Ur Culture Indicated? Urine Glucose (Negative) mg/dL Salicylates (<2.8) mg/dL < 2.8 Ethyl Alcohol (<10) mg/dL < 3.0 HPI General Mode of arrival: EMS. Date/Time Provider Initiated Documentation: 04/07/23 15:38. Limitations to Documentation: altered mental status. Information obtained by: family and EMS. HPI Narrative: 57yo M arrives unresponsive via EMS. History from EMS and from on phone. EMS reports patient was mowing lawn with witnessed collapse. Unresponsive on their arrival with normal vital signs, given 4mg Narcan without improvement. Spoke with on phone; she reports he was normal this morning and went out to mow the lawn. No recent illness, no fevers, was in his usual state of health. He does not drink alcohol. She reports that she went out to check on him and found him unresponsive with neighbors around him. She reports history of cardiac disease, denies any prior strokes/seizures, states not on any blood thinners. Related Data Home Medications Medication Instructions Recorded Confirmed cyclobenzaprine 10 mg tablet 10 mg PO HS PRN 12/31/12 01/20/23 nitroglycerin 0.4 mg sublingual 0.4 mg sublingual PRN PRN 12/31/12 01/20/23 tablet (Nitrostat) rosuvastatin 10 mg tablet (Crestor) 20 mg PO DAILY 12/31/12 01/20/23 bupropion HCl 150 mg tablet,12 hr 150 mg PO BID 02/14/14 01/20/23 sustained-release pantoprazole 40 mg tablet,delayed 40 mg PO BID 02/14/14 01/20/23 release albuterol sulfate 90 mcg/actuation 2 puff inhalation Q4H 12/26/19 01/20/23 aerosol inhaler (ProAir HFA) aspirin 81 mg tablet,delayed 81 mg PO DAILY 12/26/19 01/20/23 release (Adult Aspirin Regimen) hydroxyzine pamoate 50 mg capsule 25 mg PO Q4H PRN #90 tab-caps 12/26/19 01/20/23 pramipexole 0.5 mg tablet (Mirapex) 0.5 - 1 mg PO DIRECTED 12/26/19 01/20/23 simethicone 80 mg chewable tablet 80 mg PO BID-QID PRN 12/26/19 01/20/23 (Gas Relief (simethicone)) sucralfate 1 gram tablet (Carafate) 1 gm PO QACHS 12/26/19 01/20/23 colchicine (gout) 0.6 mg tablet 0.6 mg PO BID 11/23/20 01/20/23 docusate sodium 100 mg capsule 100 mg PO BID PRN 11/23/20 01/20/23 (Colace) polyethylene glycol 3350 17 17 gm PO DAILY PRN 11/23/20 01/20/23 gram/dose oral powder (Miralax) ranolazine 500 mg tablet,extended 500 mg PO BID #60 tabs 11/23/20 01/20/23 release,12 hr duloxetine 60 mg capsule,delayed 60 mg PO BID 12/24/20 01/20/23 release (Cymbalta) gabapentin 300 mg capsule 600 - 900 mg PO TID 12/24/20 01/20/23 losartan 25 mg tablet 12.5 mg PO DAILY 12/24/20 01/20/23 prochlorperazine maleate 10 mg 10 mg PO Q8H PRN 12/24/20 01/20/23 tablet topiramate 25 mg tablet 25 - 50 mg PO BID 06/07/21 01/20/23 dulaglutide 0.75 mg/0.5 mL 0.75 mg subcut DIRECTED 10/21/21 01/20/23 subcutaneous [facility] isosorbide mononitrate 30 mg 30 mg PO QAM 10/21/21 01/20/23 tablet,extended release 24 hr metformin 1,000 mg tablet,extended 1,000 mg PO BID #60 tabs 10/24/21 01/20/23 release 24hr amlodipine 5 mg tablet 5 mg PO DAILY 01/21/22 01/20/23 metoprolol succinate 200 mg See Rx Instructions .Route 03/24/23 tablet,extended release 24 hr .COMPLEX #90 tabs Previous Rx's Medication Instructions Recorded ranolazine 500 mg tablet,extended 500 mg PO BID #60 tabs 11/23/20 release,12 hr metformin 1,000 mg tablet,extended 1,000 mg PO BID #60 tabs 10/24/21 release 24hr metoprolol succinate 200 mg See Rx Instructions .Route 03/24/23 tablet,extended release 24 hr .COMPLEX #90 tabs Allergies Allergy/AdvReac Type Severity Reaction Status Date / Time thallium-201 [Thallium-201] Allergy Severe Pt went to Verified 01/20/23 10:56 [facility] [place] ciprofloxacin Allergy Intermediate Verified 01/20/23 10:56 lisinopril AdvReac cough Verified 01/20/23 10:56 Paper tape Allergy Intermediate rash Uncoded 01/20/23 10:56 General Stated Complaint: AMS/LOC NANCY: 1 Review of Systems Narrative: [facility] All Active Problems (Updated 04/07/23 @ 20:47 by Keeley Smith MD) Coma of unknown cause (Acute) Thyroid nodule (Acute) Hyperplastic colon polyp (Acute) Tubular adenoma of colon (Acute) CAD (coronary artery disease) (Chronic) a. LAD stent [place] [facility] [place] b. Restenosis of LAD and two more stents to LAD at [facility] 01/2014 c. 50% proximal RCA lesion d. Recurrent angina on Ranolazine e. Normal [place] scan 08/2014 Tobacco abuse (Chronic) History of TIA (transient ischemic attack) (Chronic) Obesity (Chronic) Diabetes mellitus, type II (Chronic) Hypertension (Chronic) Hyperlipidemia (Chronic) Atherosclerotic cardiovascular disease (Acute) Atypical angina (Acute) Screening for colon cancer (Acute) Encounter for colorectal cancer screening (Acute) Medical History Abdominal pain Abscess of right groin Acute diarrhea Asthma Cervicalgia Cholelithiasis a. cholecystectomy Chronic pain COPD (chronic obstructive pulmonary disease) Dental infection Depression Diabetes mellitus Discharge planning issues Diverticulitis Duodenitis Family history of colon cancer Fibromyalgia Gastroparesis diabeticorum Gastropathy GERD (gastroesophageal reflux disease) H/O: gout Headache Hematuria Hemiplegic migraine With intractable migraine, so stated, without mention of status migrainosus Hip pain, right Hypomagnesemia Hypotensive episode Ileitis Ketoacidosis due to secondary diabetes mellitus Knee pain Knee pain, left Left cervical radiculopathy Leg pain, right Low back pain Myalgia Myocardial infarction, inferior wall 2013 Palpitations Peripheral neuropathy Postural lightheadedness Reaction, situational RLS (restless legs syndrome) Shoulder pain, left Smoker Syncope Tachycardia, paroxysmal Thyroid nodule Surgical History H/O surgical procedure a. cath and stents b. cholecystectomy c. back surgery History of arthroscopic surgery of shoulder History of cholecystectomy History of colonoscopy (~09/2021) History of coronary artery stent placement History of knee surgery Hx of discectomy Hx of tonsillectomy Family History Other Cancer Colon cancer Social History Smoking/Tobacco Use Status: Current every day Tobacco Type: cigarettes Smoking risk assessment performed?: Yes Alcohol Intake: former Drug use: Daily Substance use type: marijuana Details: 2-3 joints/day Household members: spouse Housing: house Number of Children: 2 current occupation: Disabled Current gender identity: male What type of physical activity do you participate in: walking, independent ambulation and additional Details: work at home (outside work) Do you feel safe at home: Yes Do you feel safe in your relationship?: Yes Exam Narrative Exam Narrative: General: Unresponsive. Head: Normocephalic, atraumatic Neck: Trachea midline, Neck supple. ENT: MMM. No oropharygeal lesions or exudate. Cardiac: RRR, no murmurs appreciated Resp: No respiratory distress. CTAB. Abd: Soft, non-distended, nontender Extremities: No deformities. No peripheral edema. Neurologic: GCS 3, unresponsive to vigorous sternal rub. Pupils equal and reactive 4mm to 2mm. Discongugate gaze, right eye out and up, left eye lateral. Course Vital Signs Vital signs: Vital Signs Pulse 104 H 04/07/23 15:30 Respiratory Rate 14 04/07/23 15:30 Blood Pressure 135/95 H 04/07/23 15:30 Pulse Oximetry 99 04/07/23 15:30 Pulse 102 H 04/07/23 15:51 Pulse 107 H 04/07/23 15:51 Respiratory Rate 12 04/07/23 15:51 Respiratory Effort Normal 04/07/23 16:17 Blood Pressure 128/86 04/07/23 15:51 Blood Pressure Mean 97 04/07/23 15:51 Pulse Oximetry 99 04/07/23 15:30 Oxygen Delivery Method Room Air 04/07/23 15:30 Oxygen Flow Rate 0 04/07/23 15:30 Lab/Test Results Lab/Test Results: Laboratory Tests Range/Units 04/07/23 04/07/23 04/07/23 15:40 15:40 15:40 WBC (4.4-10.8) 10^3/uL 7.54 RBC (4.36-5.78) 10^6/uL 4.77 Hgb (13.5-17.5) g/dL 14.0 Hct (40.0-50.0) % 41.2 MCV (80-95) fL 86 MCH (27.0-33.0) pg 29.4 MCHC (32.0-36.0) % 34.0 RDW (11.8-14.1) % 13.9 Plt Count (130-400) 10^3/uL 208 MPV (8.0-11.0) fL 10.5 Immature Gran % 0.7 Neutrophils % 51.6 Lymphocytes % 32.6 Monocytes % 9.4 Eosinophils % 4.8 Basophils % 0.9 Nucleated RBC % (0.0-0.3) % 0.0 Absolute Neutrophils (1.2-6.7) 10^3/uL 3.89 Absolute Lymphocytes (1.2-3.4) 10^3/uL 2.46 Absolute Monocytes (0.1-0.8) 10^3/uL 0.71 Absolute Eosinophils (0.0-0.7) 10^3/uL 0.36 Absolute Basophils (0.0-0.2) 10^3/uL 0.07 PT (9.3-11.0) sec 10.4 INR (0.9-1.1) 1.0 APTT (21.5-31.9) sec 23.7 VBG Lactate (0.6-1.4) mmol/L 1.1 Urine Color (Yellow) Urine Clarity (Clear) Urine pH (5-8) Ur Specific [place] (1.005-1.025) Urine Protein (Negative) mg/dL Urine Ketones (Negative) mg/dL Urine Blood (Negative) Urine Nitrite (Negative) Urine Bilirubin (Negative) Urine Urobilinogen (Up to 0.2) mg/dL Ur Leukocyte Esterase (Negative) Urine RBC (0-2) HPF Urine WBC (0-5) HPF Ur Epithelial Cells (Negative) HPF Urine Crystals (Negative) HPF Urine Bacteria (Negative) HPF Urine Casts (Negative) LPF Urine Mucus (Negative) Urine Other (Negative) Ur Culture Indicated? Urine Glucose (Negative) mg/dL Range/Units 04/07/23 16:10 WBC (4.4-10.8) 10^3/uL RBC (4.36-5.78) 10^6/uL Hgb (13.5-17.5) g/dL Hct (40.0-50.0) % MCV (80-95) fL MCH (27.0-33.0) pg MCHC (32.0-36.0) % RDW (11.8-14.1) % Plt Count (130-400) 10^3/uL MPV (8.0-11.0) fL Immature Gran % Neutrophils % Lymphocytes % Monocytes % Eosinophils % Basophils % Nucleated RBC % (0.0-0.3) % Absolute Neutrophils (1.2-6.7) 10^3/uL Absolute Lymphocytes (1.2-3.4) 10^3/uL Absolute Monocytes (0.1-0.8) 10^3/uL Absolute Eosinophils (0.0-0.7) 10^3/uL Absolute Basophils (0.0-0.2) 10^3/uL PT (9.3-11.0) sec INR (0.9-1.1) APTT (21.5-31.9) sec VBG Lactate (0.6-1.4) mmol/L Urine Color (Yellow) Yellow Urine Clarity (Clear) Clear Urine pH (5-8) 5.0 Ur Specific [place] (1.005-1.025) >= 1.030 H Urine Protein (Negative) mg/dL 30 H Urine Ketones (Negative) mg/dL Trace H Urine Blood (Negative) Negative Urine Nitrite (Negative) Negative Urine Bilirubin (Negative) Small H Urine Urobilinogen (Up to 0.2) mg/dL 0.2 Ur Leukocyte Esterase (Negative) Negative Urine RBC (0-2) HPF 0-2 Urine WBC (0-5) HPF Negative Ur Epithelial Cells (Negative) HPF Rare Urine Crystals (Negative) HPF Negative Urine Bacteria (Negative) HPF Rare Urine Casts (Negative) LPF 0-2 Hyaline Urine Mucus (Negative) Trace Urine Other (Negative) Few Transitional Ur Culture Indicated? No Urine Glucose (Negative) mg/dL Negative Procedures Intubation Time out performed: Yes sedative: Etomidate Mg Given: 30 paralytic: Rocuronium Mg Given: 100 Laryngoscope: fiberoptic video scope ET Tube Size: 8 ET Tube Uncuffed: Yes Tube Secured Depth (cm): 23 Tube Secured Location: teeth Tube Placement Confirmation: visualized tube passing through cords, equal breath sounds bilaterally, no breath sounds over epigastrum and confirmation by capnometry Patient Tolerated Procedure: well and no complications Intubation Complications: none Critical Care Time Critical Care Time Critical Care Time: Yes Total Critical Care Time: 72 Attestation: Due to a high probability of clinically significant, life threatening deterioration, the patient required my highest level of preparedness to intervene emergently and I personally spent this critical care time directly and personally managing the patient. This critical care time included obtaining a history; examining the patient; pulse oximetry; ordering and review of studies; arranging urgent treatment with development of a management plan; evaluation of patient's response to treatment; frequent reassessment; and, discussions with other providers. This critical care time was performed to assess and manage the high probability of imminent, life-threatening deterioration that could result in multi-organ failure. It was exclusive of separately billable procedures.
--- NOTE | 2023-04-07 16:45 | DI.CT_ITS ---
Exam(s) CT CHEST/ABD/PEL W EXAM: CT CHEST/ABD/PEL W CLINICAL HISTORY: unresponsive. TECHNIQUE: Imaging Protocol: Axial computed tomography images with coronal and sagittal reformatted images were created and reviewed CONTRAST MATERIAL: Intravenous: Omnipaque 350 Contrast volume:100 ml Oral: None COMPARISON: CT CT CERVICAL SPINE WO from 04/07/2023 FINDINGS: CHEST: Patient is intubated. Distal tip of the endotracheal tube is above the veronica in satisfactory positi on. There is no obstruction of the mainstem bronchi. LUNGS: Mild infiltrate noted in posterior basal segments both lower lobes. No large pleural effusion s.. MEDIASTINUM: No sternal fracture or mediastinal hematoma. No hilar nor mediastinal adenopathy. CARDIAC: Heart size is normal. There is no pericardial effusion.Caliber of thoracic aorta normal. N o dissection evident. OSSEOUS: No significant osseous lesions.No fractures evident.. ABDOMEN: No ascites. No mesenteric nor bowel wall hematomas. No mesenteric masses. No ischemic appearing maia wel loops. NG tube is in the stomach. LIVER: There are no focal hepatic lesions nor dilatation of intrahepatic ducts. GALLBLADDER/BILIARY: Gallbladder is surgically absent. CBD is not dilated. PANCREAS: No evidence of pancreatic mass nor dilatation of the pancreatic duct. SPLEEN: Spleen is not enlarged. There are no intrasplenic lesions. Splenic and portal veins are no nt. ADRENALS: There are no significant adrenal masses. KIDNEYS: There is a benign cyst in the superior pole of the left kidney measuring 6 x 5 cm. No furth er workup of this required. Smaller cyst is noted in the opposite-right kidney which measures 2 x 1. 5 cm. No solid renal masses nor calculi. No hydronephrosis nor hydroureter.. ABDOMINAL AORTA: Abdominal aorta is not enlarged. LYMPH NODES: There is no retroperitoneal nor paraaortic adenopathy. ABDOMINAL WALL: No evidence of significant anterior abdominal wall nor inguinal hernia. GI: There is no evidence of bowel obstruction. PELVIS: LYMPH NODES: There is no intrapelvic nor inguinal adenopathy. GI: No evidence of appendicitis.Sigmoid diverticuli. No obvious acute diverticulitis. URINARY BLADDER: Levy catheter noted in the nondistended bladder lumen. REPRODUCTIVE: Prostate gland not enlarged. Seminal vesicles unremarkable. OSSEOUS: No significant osseous lesions. No fractures IMPRESSION: 1. Endotracheal tube in satisfactory position above the veronica. An NG tube is noted with its distal tip in the gastric fundus region. 2. There is mild infiltrate in both lung bases. No large pleural effusions. No pneumothorax. No fr actures. 3. No evidence of aortic dissection. 4. Gallbladder surgically absent. Biliary tree is not dilated. There is a Levy catheter in the urinary bladder. The bladder is not distended. No acute appearing findings in the abdomen and pelvis. No fractures. RADIATION DOSE DELIVERED: Total DLP DATA REPOSITORY: All CT scans at this facility are submitted to the National Radiology Data Registry (NRDR) Dose Index Registry (DIR) with the [employer] (ACR). RADIATION OPTIMIZATION: All CT scans at this facility use at least one of these dose optimization te chniques: automated exposure control; mA and/or kV adjustment per patient size (includes targeted exa ms where dose is matched to clinical indication); or iterative reconstruction.
--- NOTE | 2023-04-07 16:45 | DI.CT_ITS ---
Exam(s) CT CERVICAL SPINE WO EXAM: CT CERVICAL SPINE WO CLINICAL HISTORY: unresponsive. TECHNIQUE: Imaging Protocol: Axial computed tomography images with coronal and sagittal reformatted images were created and reviewed COMPARISON: CT CT ABDOMEN PELVIS W from 10/21/2021 FINDINGS: CERVICAL SPINE: Patient is intubated and there is also an NG tube evident. There is no evidence of acute fracture. No significant prevertebral soft tissue swelling. No significant listhesis. Multilevel moderate disc space narrowing. Mild facet joint degenerative changes. Facet arthropathy evident but no significant facet joint malalignment. No significant osseous lesions evident. IMPRESSION: No evidence of cervical spine fracture, malalignment, nor acute compromise of the cervical spinal can al. Patient is intubated. RADIATION DOSE DELIVERED: 3134.27 mGy.cm Total DLP DATA REPOSITORY: All CT scans at this facility are submitted to the National Radiology Data Registry (NRDR) Dose Index Registry (DIR) with the [employer] (ACR). RADIATION OPTIMIZATION: All CT scans at this facility use at least one of these dose optimization te chniques: automated exposure control; mA and/or kV adjustment per patient size (includes targeted exa ms where dose is matched to clinical indication); or iterative reconstruction.
[2023-04-07 16:47] LABS: ALT 19 U/L (16-63); AST 15 U/L (15-37); Albumin 3.5 g/dL (3.4-5.0); Alkaline Phosphatase 54 U/L (46-116); Anion Gap 12.9 mmol/L (3-11); BUN 10 mg/dL (7-18); Bilirubin, Total 0.4 mg/dL (0.2-1.0); CO2 22.1 mmol/L (21.0-32.0); CREATININE 1.1 mg/dL (0.70-1.30); Calcium 8.8 mg/dL (8.5-10.1); Chloride 111 mmol/L (98-107); Estimated GFR 79.28 (mL/min/1.73m2); Glucose 165 mg/dL (74-106); Magnesium 1.7 mg/dL (1.8-2.4); Potassium 3.4 mmol/L (3.5-5.1); Sodium 146 mmol/L (136-145); Total Protein 6.7 g/dL (6.4-8.2); Troponin I < 50 ng/L (<or=60)
--- NOTE | 2023-04-07 17:03 | DI.CT_ITS ---
Exam(s) CT BRAIN NECK CTA EXAM: CT BRAIN NECK CTA CLINICAL HISTORY: unresponsive. TECHNIQUE: Imaging Protocol: Axial CT angiography was performed with multi-slice acquisition and mu lti-planar and/or 3D reconstructions. CONTRAST MATERIAL: Intravenous: Omnipaque 350 Contrast volume:structured data in ml COMPARISON: CT CT CHEST/ABD/PEL W from 04/07/2023 FINDINGS: CTA Neck W: Aortic arch anatomy: The aortic arch anatomy is conventional and there is no significant stenosis at the origin of the great vessels off of the aortic arch. No intimal flap evident. Anterior circulation: Both common carotid arteries ascend with normal luminal diameters. At the level the carotid bulbs and proximal internal carotid arteries there is minimal plaque without hemodynamically significant stenosis evident. Posterior circulation: Both vertebral arteries originate in conventional fashion off of the subclavian arteries and there is no obvious stenosis at the origin of the vertebral arteries. Both vertebral arteries exhibit normal luminal diameters within the foramen transversarium. Both vertebral arteries contribute to the formation of the basilar artery at the skull base. CTA Brain W: Anterior circulation: Both internal carotid arteries are patent in the skull base-carotid canals as well as within the cave rnous sinuses. The supraclinoid aspects of the ICAs are patent. Both A1 segments are patent as are the anterior cer ebral arteries and there is no evidence of aneurysm at the level of the anterior communicating artery . Both middle cerebral arteries are patent with no evidence of significant stenosis nor intraluminal th rombus. There also no aneurysms of these vessels. Posterior circulation: The basilar artery ascends in the midline. Distally it gives off patent bilateral superior cerebella r arteries. Above this level the basilar artery terminates as patent bilateral posterior cerebral arteries. There is no evidence of aneurysm at the tip of the basilar artery nor elsewhere in the [id number] is. CT BRAIN: There is no evidence of intracranial hemorrhage, mass effect, or shift of midline structures. There are no extra-axial fluid collections. Ventricles are not enlarged or shifted. There are no ring enh ancing lesions in the brain and no abnormal meningeal enhancement. IMPRESSION: 1. Patent carotid arteries in the neck. No hemodynamically significant stenosis. 2. Patent vertebral arteries. 3. Patent intracranial arteries. 4. No ring enhancing lesions in the brain. No abnormal in and meningeal enhancement. No obvious ter ritorial infarct. No hemorrhage. RADIATION DOSE DELIVERED: Total DLP DATA REPOSITORY: All CT scans at this facility are submitted to the National Radiology Data Registry (NRDR) Dose Index Registry (DIR) with the [employer] (ACR). RADIATION OPTIMIZATION: All CT scans at this facility use at least one of these dose optimization te chniques: automated exposure control; mA and/or kV adjustment per patient size (includes targeted exa ms where dose is matched to clinical indication); or iterative reconstruction.
[2023-04-07] MEDS: Omnipaque 350 MG/ML 100 ML BTL IJ ×2 (17:21→17:22)
[2023-04-07] MEDS: Normal Saline - Diluent 50 ML VIAL IJ ×2 (17:23→17:24)
[2023-04-07] MEDS: Normal Saline Flush 10 ML SYR IVP (17:24)
[2023-04-07] MEDS: MIDAZOLAM 50 MG in Normal Saline 90 ML IV (18:34)
[2023-04-07] MEDS: cefTRIAXone 1 GM/50 ML BAG IVPB (18:44)
[2023-04-07] MEDS: Midazolam 2 MG/2 ML VIAL 10 MG IVP (19:01)
[2023-04-07 19:32] LABS: Salicylate < 2.8 mg/dL (<2.8)
[2023-04-07 19:42] LABS: Troponin I < 50 ng/L (<or=60)
[2023-04-07 19:46] LABS: ETHANOL BLOOD < 3.0 mg/dL (<10)
[2023-04-07] MEDS: VANCOMYCIN/WATER (PEG) 1.75 GM/350 ML BAG IV (20:05)
[2023-04-07] MEDS: PROPOFOL 500 MG/50 ML BTL IV (21:03)
[2023-04-07] MEDS: Norepinephrine in D5W 8 MG/250 ML BAG 9.4 MG IV (21:10)
--- NOTE | 2023-04-07 21:40 | NUR.NOTE ---
Nurse to nurse report given to Leigha Rehman RN [facility]
== END 2023-04-07 22:11 | disposition short-term general hospital (02) ==
PROVIDERS: Emergency Provider Student in an Organized Health Care Education/Training Program; PCP Family Medicine
DX: R40.20 Unspecified coma (principal)
CPT/HCPCS: 31500; 36415; 36416; 51702; 70496; 70498; 74177; 80053; 82962; 87040; 93005; 96365; 96366; 96367; 96368; 96375; 99291; 70450; 71045; 71260; 72125; 80320; 80329; 81003; 81015; 83605; 83735; 84484; 85025; 85610; 85730; 87086; 93010; J0696; J2250; J3490

== ENCOUNTER 2023-09-01 15:08 | Outpatient (REF) | payer OTHER, MEDICAID, SELFPAY ==
[2023-09-01 17:38] LABS: Anion Gap 8.3 mmol/L (3-11); BUN 12 mg/dL (7-18); CO2 25.7 mmol/L (21.0-32.0); CREATININE 1.1 mg/dL (0.70-1.30); Calcium 9.5 mg/dL (8.5-10.1); Chloride 106 mmol/L (98-107); Estimated GFR 78.79 (mL/min/1.73m2); Glucose 200 mg/dL (74-106); Potassium 4.3 mmol/L (3.5-5.1); Sodium 140 mmol/L (136-145); TSH 1.46 uIU/mL (0.36-3.74)
== END 2023-09-01 15:09 | disposition home or self-care (01) ==
LOC: NCHCN 15:08
PROVIDERS: PCP Family Medicine; Visit Provider Family Medicine
DX: E11.9 Type 2 diabetes mellitus without complications (principal)
CPT/HCPCS: 80048; 84443

== ENCOUNTER 2023-12-10 10:42 | Outpatient (CLI) | payer OTHER, MEDICAID, SELFPAY | END 2023-12-10 10:43 | disposition home or self-care (01) | PROVIDERS: PCP Family Medicine; Visit Provider Family Medicine | DX: R55 Syncope and collapse (principal) | CPT/HCPCS: 93246 ==

== ENCOUNTER 2023-12-31 09:47 | Outpatient (CLI) | payer OTHER, MEDICAID, SELFPAY ==
--- NOTE | 2023-12-31 09:53 | W.CARDEVENT ---
Date of service: 12/31/23 Time of Service: 09:53 Cardiac Event Recorder Referring Provider:: Coni Lim Indications:: Syncope Cardiac Event Note: This is a cardiac event monitor. Patient was monitored for 10 days and 20 hours Rhythm throughout was sinus with an average heart rate of 81. Minimum was 58, maximum 138. There were very rare isolated atrial and ventricular ectopic beats there was no atrial fibrillation, no high-grade AV block, no pauses greater than 3 seconds Symptoms were reported which had no correlation to any dysrhythmia
== END 2023-12-31 09:48 | disposition home or self-care (01) ==
LOC: CARDOPNVT 09:47
PROVIDERS: PCP Family Medicine; Visit Provider Internal Medicine Cardiovascular Disease
DX: R55 Syncope and collapse (principal)
CPT/HCPCS: 93248

== ENCOUNTER 2024-04-30 13:05 | Outpatient (CLI) | payer OTHER, MEDICAID, SELFPAY ==
--- NOTE | 2024-04-30 13:00 | RT.EKG_ITS ---
APPROVED REPORT Exam: Resting ECG Reason for Exam: CHEST PAIN Patient Location: O HR:90 bpm ECG Measurements Heart Rate 90 AXIS NM 152 P 46 QRSd 85 QRS 50 QT 339 T 33 QTc 415 Conclusion Sinus rhythm...normal P axis, V-rate 50- 99 Normal Electrocardiogram
== END 2024-04-30 13:06 | disposition home or self-care (01) ==
LOC: DI.CM 13:06
PROVIDERS: PCP Family Medicine; Visit Provider Physician Assistant
DX: R07.9 Chest pain, unspecified (principal)
CPT/HCPCS: 93010

== ENCOUNTER 2024-04-30 13:34 | Inpatient (IN) | payer OTHER, SELFPAY ==
[2024-04-30] VITALS (46 sets, daily range): BP systolic 92–122; BP diastolic 53–76; PULSE 66–86; RESP 11–20; TEMP 36–37.4; O2SAT 87–98
--- NOTE | 2024-04-30 13:30 | DI.CT_ITS ---
Exam(s) CT HEAD WO EXAM: CT HEAD WO CLINICAL HISTORY: ams. TECHNIQUE: Imaging Protocol: Axial computed tomography images with coronal and sagittal reformatted images were created and reviewed COMPARISON: CT CT BRAIN NECK CTA from 04/07/2023 FINDINGS: Ventricles and Extra axial spaces: Normal in size and morphology for the patient's age. Hemorrhage: None. Cerebral parenchyma: No acute mass effect. No evidence of an acute territorial infarct. Midline shift: None. Brainstem/Cerebellum: Normal. Calvarium: Normal. Visualized Paranasal sinuses/Mastoids: Mucous retention cysts or polyps are seen in the maxillary sin uses bilaterally. There is opacification of several ethmoid air cells bilaterally. The remaining vi sualized paranasal sinuses and mastoid air cells are clear. Soft Tissues: Unremarkable. IMPRESSION: No acute intracranial process. RADIATION DOSE DELIVERED: 880.75mGy.cm Total DLP DATA REPOSITORY: All CT scans at this facility are submitted to the National Radiology Data Registry (NRDR) Dose Index Registry (DIR) with the [employer] (ACR). RADIATION OPTIMIZATION: All CT scans at this facility use at least one of these dose optimization te chniques: automated exposure control; mA and/or kV adjustment per patient size (includes targeted exa ms where dose is matched to clinical indication); or iterative reconstruction.
--- NOTE | 2024-04-30 13:30 | DI.RAD_ITS ---
Exam(s) XR PORTABLE CHEST AP EXAM: XR PORTABLE CHEST AP CLINICAL HISTORY: AMS TECHNIQUE: 2D digital imaging was performed of the chest. One image was obtained. An AP view was ob tained. COMPARISON: CR XR PORTABLE CHEST AP from 06/07/2021 CR XR PORTABLE CHEST AP from 04/07/2023 FINDINGS: There is poor inspiration. MEDIASTINUM: Normal. HEART: Normal. PULMONARY VASCULATURE: There is mild prominence of the pulmonary vasculature bilaterally which may re present pulmonary venous congestion. LUNGS: No focal consolidating infiltrates are seen. PLEURAL SPACE: No pleural effusion or pneumothorax. BONE:Within normal limits for the patient's age. OTHER FINDINGS:Normal. IMPRESSION: Question of mild pulmonary venous congestion. No focal consolidating infiltrates. DATA REPOSITORY: RADIATION DOSE DELIVERED:
--- NOTE | 2024-04-30 13:30 | RT.EKG_ITS ---
APPROVED REPORT Exam: Resting ECG Reason for Exam: chest pain Patient Location: E HR:88 bpm ECG Measurements Heart Rate 88 AXIS IL 160 P 34 QRSd 80 QRS 21 QT 340 T 34 QTc 412 Conclusion Sinus rhythm...normal P axis, V-rate 60- 99 sinus rhythm, normal axis, normal intervals, non ischemic
--- OUTSIDE RECORDS SUMMARY | 2024-04-30 13:39 | XMS_ITS | Clinical Summary ---
Author Organization [facility] Address [facility] [place] [address] Care Team Providers Care Cycle Counter Name Role Phone Coni Lim MD Primary Care Provider [phone] Allergies Active Allergy Reactions Criticality Noted Date Comments Lisinopril Other (See Comments) 11/21/2016 cough Adhesive Tape Rash 11/24/2016 Thallium-201 High 05/28/2012 Severe cardiac event Medications Medication Sig Dispensed Refills Start Date End Date Status DULoxetine (CYMBALTA) 60 mg capsule Take 60 mg by mouth 2 times daily. Active cyclobenzaprine (FLEXERIL) 10 mg tablet Take 10 mg by mouth nightly. Active gabapentin (NEURONTIN) 300 mg capsule Take 300 mg by mouth 3 times daily. 2 tabs in morning, 2 tabs in evening and 3 tabs at bedtime Active colchicine (COLCRYS) 0.6 mg Tablet Take 0.6 mg by mouth 2 times daily as needed (gout). Active pantoprazole (PROTONIX) 40 mg Tablet, Delayed Release (E.C.) Take 40 mg by mouth 2 times daily. Active buPROPion (WELLBUTRIN SR OR ZYBAN) 150 mg Tablet Sustained Release Take 150 mg by mouth 2 times daily. Active topiramate (TOPAMAX) 50 mg Tablet Take 50 mg by mouth nightly. Active levalbuterol (XOPENEX HFA) 45 mcg/actuation HFA Aerosol Inhaler Inhale 1-2 puffs into the lungs every 6 hours as needed for Wheezing or Shortness of Breath. Active pramipexole (MIRAPEX) 0.5 mg Tablet Take 0.5 mg by mouth nightly. Active metoprolol succinate (TOPROL-XL) 100 mg Tablet Sustained Release 24 hr Take 1 tablet by mouth daily. 30 tablet 12 03/16/2019 Active rosuvastatin (CRESTOR) 40 mg Tablet Take 1 tablet by mouth every evening. 90 tablet 3 03/16/2019 Active acetaminophen (TYLENOL) 325 mg Tablet Take 2 tablets by mouth every 4 hours as needed. 30 tablet 03/16/2019 Active Ventolin HFA 90 mcg/actuation HFA Aerosol Inhaler INHALE TWO PUFFS BY MOUTH EVERY 4 TO 6 HOURS 05/18/2020 Active OneTouch Verio test strips Strip USE ONE STRIP DAILY DIRECTED 03/02/2020 Active isosorbide mononitrate CR (Imdur) 30 mg Tablet Sustained Release 24 hr 05/19/2020 Active losartan (Cozaar) 25 mg Tablet 12.5 mg. 03/27/2020 Active erythromycin (ROMYCIN) 5 mg/gram (0.5 %) OintmentIndications: Conjunctival lesion Place into the right eye 3 times daily. 3.5 g 05/24/2020 Active ranolazine ER (Ranexa) 500 mg Tablet Sustained Release 12 hr Take 500 mg by mouth 2 times daily. Active aspirin 81 mg Tablet, Chewable Take 81 mg by mouth daily. 30 tablet 3 06/10/2021 Active nitroGLYcerin (Nitrostat) 0.4 mg Tablet, Sublingual Place 1 tablet under the tongue every 5 minutes as needed for Chest pain. 25 tablet 06/10/2021 Active metFORMIN XR (Glucophage XR) 500 mg Tablet Sustained Release 24 hr Take 2 tablets by mouth 2 times daily. Hold for 48 hours post contrast exposure 30 tablet 12 06/12/2021 Active Active Problems Patient Care Coordination No te Formatting of this note migh t be different from the original. Notified by [facility] in [place], [place] pt will need PA for Brilinta. Had DR. Nagy complete PA form. CRC faxed to [facility] with Fax confirmation received.. CRC Faxed copy of Brilinta coupon to [facility]. 30 day supply will be able to be filled on Thursday 06/07. CRC contacted [facility] in [place], [place]. They confirmed they can dispense 10 90 mg tabs to pt until Thursday. Pt's Dasia notified by CRC of plan to warp picker Brilintal Rx at [facility] and then Full Rx from [facility] on Thursday. Pt's verbalized understanding. CRC notified Dr. Nagy of plan. Chester GRAHAM, RN Clinical Safety Compliance Specialist Pager [phone] Problem Noted Date Diagnosed Date Conjunctival lesion 05/24/2020 Unstable angina 11/21/2016 Chest pain 06/14/2012 Hx-TIA (transient ischemic attack) 06/03/2012 Overview (06/03/2012): 2003, residual numbness in R hand and leg reported per pt, no mechanical limitations Dyslipidemia 05/31/2012 GERD (gastroesophageal reflux disease) 2 HTN (hypertension) 05/31/2012 DM (diabetes mellitus) 05/31/2012 Smoker 05/31/2012 CAD (coronary artery disease) 05/31/2012 Overview (07/29/2013): -Coronary Angio 07/29/2013: 65% (FFR 0.74) mid LAD lesion s/p PCI with 3.5 X 18 mm [facility] - [facility] 2009 post abnormal nuc stress +IW, EF normal - Recurrent angina, CCS class III - Cardiac catheterization 06/03/2012: 2 vessel CAD (LAD and LCX), +FFR of both lesions s/p PCI to pOM1 (3.0 x 18 mm Xience JACINDA) and mLAD (3.0 x 20 mm Promus Element JACINDA) Immunizations Name Administration Dates Next Due Influenza (Novel G3C0-28) Injectable 05/24/2009 Influenza PF, Split 07/30/2013 Influenza Trivalent w/Preservative 06/15/2012 Influenza Vaccine, Whole 05/24/2009,06/21/2008 Pneumococcal Polysaccharide (Pneumovax 23) 05/24 Family History Medical History Relation Comments Heart Disease Brother 1 Heart Disease Brother 2 Diabetes Brother 3 Diabetes Brother 4 Hypertension Brother 5 Hypertension Brother 6 Hyperlipidemia Brother 7 Hyperlipidemia Brother 8 Heart Disease Father Myocardial Infarction Father NE, CABG Diabetes Mother Heart Disease Mother Hyperlipidemia Mother Hypertension Mother Strabismus Neg Hx Relation Status Comments Brother 1 Alive Brother 2 Alive Brother 3 Brother 4 Brother 5 Brother 6 Brother 7 Brother 8 Father (Age 69) Mother Social History Tobacco Use Types Packs/Day Years Used Date Smoking Tobacco: Every Day Cigarettes Smokeless Tobacco: Former Tobacco Cessation:Ready to Q uit: Yes Comments:1-2 cigarette a day since 2018, he was a heavy smoker. Alcohol Use Standard Drinks/Week Comments No 0 (1 standard drink = 0.6 oz pur e alcohol) in past month Sex and Gender Information Value Date Recorded Sex Assigned at Not on file Gender Identity Not on file Sexual Orientation Not on file Last Filed Vital Signs Vital Sign Reading Time Taken Comments Blood Pressure 110/71 06/10/2021 4:17 PM EDT Pulse 66 06/10/2021 12:15 PM EDT Temperature 37.3 ??C (99.1 ??F) 06/10/2021 4:17 PM ED T Respiratory Rate 15 06/10/2021 4:17 PM EDT Oxygen Saturation 95% 06/10/2021 4:17 PM EDT Inhaled Oxygen Concentration - - Weight 115.8 kg (255 lb 4.7 oz) 021 10:48 AM EDT Height 177.8 cm (5' 10) 2021 7:16 PM EDT Body Mass Index 36.63 2021 7:16 PM EDT Plan of Treatment Health Maintenance Due Date Last Done Comments CT Colonography 1967 Colonoscopy 1967 Colorectal Cancer Screening 1967 FIT DNA 1967 FIT 1967 Sigmoidoscopy (10 year) with FIT yearly 1967 Sigmoidoscopy 1967 DM Opthalmology Exam 1977 DM Urine Microalbumin yearly 1977 HIV screen 1985 Hepatitis C Screening 1985 Hepatitis B vaccine (0-59 yrs) (1) 1986 Tdap adult 1986 Tetanus vaccine 1986 Pneumococcal Vaccine: At-Ris k 5-64yrs (2 of 2 - PCV) 05/24/2010 05/24/2009 Zoster vaccine (1 of 2) 2017 DM Hemoglobin A1c 06/15/2019 03/15/2019, , 11/22/2016, Additional history exists Advance Directive 2022 DM Creatinine yearly 06/10/2022 06/10/2021, 06/10/2021, 2021, Additional history exists Covid-19 Vaccine (1 - 2022-2 4 season) 2024 Influenza (Flu) vaccine (1 o f 1 - Influenza standard series) 04/24/2024 07/30/2013, 06/15/2012, 05/24/2009, Additional history exists Procedures Procedure Name Priority Date/Time Associated Diagnosis Comments BMP W/FASTING GLUCOSE Routine 06/10/2021 3:44 AM EDT HEMOGLOBIN A1C Routine 03/15/2019 5:01 AM EDT from Last 3 Months or Most Recently Relevant to Health Maintenance Results * (ABNORMAL) BMP w/fasting Glucose (06/10/2021 3:44 AM EDT) [facility] Glucose Fasting 195(H) 65 - 99 mg/dL [facility] Comment: ?Fasting* Glucose Interpretive Criteria Normal ?65-99 mg/dL Impaired Fasting glucose ?100-125 mg/dL Consistent with Diabetes Mellitus ? >or= 126 mg/dL *Fasting is defined as no caloric intake for at least 8 hours In the absence of unequivocal hyperglycemia a plasma glucose value of >or= 126 mg/dL should be repeated on a subsequent day. Diagnosis and Classification of Diabetes Mellitus, Position Statement from the [place] [employer]. ??Diabetes Care, Volume 33, Supplement 1, Aug 2009 Blood Urea Nitrogen 9(L) 10 - 20 mg/dL [facility] Creatinine 0.79(L) 0.80 - 1.50 mg/dL [facility] Sodium 134(L) 135 - 145 mmol/L [facility] Potassium 4.1 3.5 - 5.0 mmol/L [facility] Comment: Please note: ??Patients with WBC >100,000 may have falsely elevated Potassium levels. ??For accurate Potassium quantification in these patients send serum separator tube (gold top) for subsequent determinations. ??Contact the Clinical Chemistry Laboratory if there are any questions. Chloride 103 98 - 107 mmol/L [facility] Carbon Dioxide 18(L) 22 - 31 mmol/L [facility] Anion Gap 13 5 - 15 mmol/L [facility] Calcium 9.4 8.5 - 10.5 mg/dL [facility] Est Glomerular Filtration Rate 102 >=60 mL/min/1. 73 m?? [facility] Comment: This patient? s estimated glomerular filtration rate (eGFR) is between 102 mL/min/1.73 m2 (patients with less muscle mass per kg body weight) and 118 mL/min/1.73 m2 (patients with more muscle mass per kg body weight) as determined by the CKD-EPI equation. Assessment of eGFR is not appropriate when creatinine concentrations are rapidly changing. For clinical decisions where creatinine clearance will affect therapy, a 24-hour urine creatinine clearance may be advised. Assignment of CKD stage 1 - 5 for patients with an eGFR near the transition point between stages may be based on clinical assessment of muscle mass and symptoms in addition to eGFR. Blood Venous Draw / Unknown 06/10/2021 3:44 AM EDT 06/10/2021 4:06 AM EDT Narrative Resulting Agency Comment Spec In Lab Coni GROVER CHEMISTRY ORDERABLE S [facility] [place] [address] * (ABNORMAL) Hemoglobin A1c (03/15/2019 5:01 AM EDT) Hemoglobin A1c 6.8(H) 4.3 - 5.6 % [facility] Comment: Reference Range: 4.3 - 5.6% 5.7 - 6.4% - Increased Risk of Developing Diabetes Mellitus >= 6.5% - Consistent with diagnosis of Diabetes Mellitus In the absence of hyperglycemia (i.e. plasma glucose > 200 mg/dL) or classic symptoms of hyperglycemia a repeat measurement of HbA1c should be performed on a separate sample to confirm the diagnosis. Diagnosis and Classification of Diabetes Mellitus, Diabetes Care 2013; 36: Suppl. 1, N04-55 Estimated Average Glucose 148 mg/dL [facility] Comment: eAG equivalents for HbA1c percentages: HbA1c(%) ?eAG(mg/dL) 6.0 ?126 6.5 ?140 7.0 ?154 7.5 ?169 8.0 ?183 8.5 ?197 9.0 ?212 9.5 ?226 10.0 ? 240 Limitations: The eAG calculation has not been validated on women, individuals below 18 years old and above 70 years old, and individuals with hemoglobinopathies. Additional resources are available on the ADA website. Ashok PIMENTEL, Abdulkadir J, Jamie R, et al. ??Translating the A1C assay into estimated average glucose values. ??Diabetes Care 2008:31(8):5494-6602. Blood specimen (specimen) 03/15/2019 5:01 AM EDT 03/15/2019 5:12 AM EDT Narrative Resulting Agency Comment Spec In Lab Siri Bush POLISHING MACHINE OPERATOR HELPER CHEMISTRY ORDERABL ES [facility] [place] [address] from Last 3 Months or Most Recently Relevant to Health Maintenance Advance Directives * Attempt Cardiopulmonary Resuscitation - Inpatient (Latest Code Status on File) Date Activated Date Inactivated Comments 2021 7:13 PM 06/10/2021 8:34 PM Question Answer Comments Code Status decision made by: Patient * Full Code Date Activated Date Inactivated Comments 03/14/2019 2:16 AM 03/16/2019 5:56 PM Question Answer Comments Does patient have capacity t o make decision: Yes Content of discussion: The patient wishe s to be full code on this admission. * Full Code Date Activated Date Inactivated Comments 09/12/2017 4:08 PM 09/14/2017 1:17 PM Question Answer Comments Does patient have capacity to make decision: Yes * Full Code Date Activated Date Inactivated Comments 11/22/2016 12:08 AM 11/25/2016 1:05 PM Question Answer Comments Does patient have capacity to make decision: Yes * Full Code Date Activated Date Inactivated Comments 07/29/2013 12:26 PM 07/30/2013 1:08 PM Question Answer Comments Order Status: Initial Order Does patient have decision m aking capacity? Yes, Order is based on Patients wishes. Care Teams Cycle Counter Relationship Specialty Start Date End Date Coni Lim MD [address] [place] [address] PCP - General 07/16/10
--- OUTSIDE RECORDS SUMMARY | 2024-04-30 13:39 | XMS_ITS | Encounter Summary ---
Author Organization [facility] [address] Care Team Providers Care Resume Writer Name Role Phone Coni Lim MD Primary Care Provider Encounter Details Date Type Department Care Team (Late st Contact Info) Description 11/25/2021 Telephone Cardiology at [address] [address] Yessy Pugh Social History Tobacco Use Types Packs/Day Years Used Date Smoking Tobacco: Every Day Cigarettes Smokeless Tobacco: Former Comments:1-2 cigarette a day since 2018, he was a heavy smoker. Alcohol Use Standard Drinks/Week Comments No 0 (1 standard drink = 0.6 oz pur e alcohol) in past month Sex and Gender Information Value Date Recorded Sex Assigned at Not on file Gender Identity Not on file Sexual Orientation Not on file documented as of this encounter Miscellaneous Notes * Telephone Encounter - Yessy Pugh - 11/25/2021 11:15 AM EDT Letter sent to notify research patient (ABSORB research stent study) that they received the ABSORB stent. Certified mail #[id number] documented in this encounter Plan of Treatment Not on file documented as of this encounter Visit Diagnoses Not on filedocumented in this encounter Care Teams Resume Writer Relationship Specialty Start Date End Date Coni Lim MD [address] [place] [address] PCP - General 07/16/10 documented as of this encounter
--- OUTSIDE RECORDS SUMMARY | 2024-04-30 13:39 | XMS_ITS | Encounter Summary ---
Author Organization [facility] Address [facility] [place] [address] Care Team Providers Care Blind Aide Name Role Phone Coni Lim MD Primary Care Provider [phone] Encounter Details Date Type Department Care Team (Late st Contact Info) Description 04/07/2023 [place] [address] Patel Griggs MD [facility] [place] [address] Social History Tobacco Use Types Packs/Day Years [...] encounter Miscellaneous Notes * Telephone Encounter - Patel Griggs MD - 04/07/2023 8:18 PM EDT Neurology Attending I spoke with caregivers [facility]. There is no capacity here to accept him in transfer. Major issues addressed and plan: History: The patient was found down and is intubated, on a ventilator and sedated. There is past history of diabetes and heart disease. Exam: I did not examine the patient.He was noted at one point to have disconjugate gaze. He is not movinghis extremities. Data: CT scan of head and neck reviewed. The cervical spine shows no acute lesions. I am suspicious that there is a brainstem stroke. CT angiography is unremarkable. Impression and plan: As noted above, I am suspicious that the patient has had a brainstem stroke. Given CT angiography results, I do not see a role for tPA or thrombectomy. I favor supportive care only until we can get MRI scan of the brain. At present given intubated status and body habitus, it is probably not practical to do a lumbar puncture. He does not have a clear indication, having no fever or elevated white blood cell count. I recommended trying to transfer the patient to [facility] Patel Griggs MD [place] [address] Pager #[phone] Email: [email or web address] documented in this encounter Plan of Treatment Not on file documented as of this encounter Visit Diagnoses Not on filedocumented in this encounter Care Teams Blind Aide Relationship Specialty Start Date End Date Coni Lim MD [address] [place] [address] PCP - General 07/16/10 documented as of this encounter
--- OUTSIDE RECORDS SUMMARY | 2024-04-30 13:39 | XMS_ITS | Encounter Summary ---
Author Organization [facility] Address [facility] [address] Care Team Providers Care Non Licensed Nuclear Equipment Operator Name Role Phone Coni Lim MD Primary Care Provider [phone] Encounter Details Date Type Department Care Team (Late st Contact Info) Description 04/07/2023 7:40 PM EDT Ancillary Procedure [place] [address] Patel Griggs MD [facility] [place] [address] Social History Tobacco Use Types Packs/Day Years [...] on file documented as of this encounter Plan of Treatment Not on file documented as of this encounter Procedures Procedure Name Priority Date/Time Associated Diagnosis Comments FILM LIBRARY STORAGE ONLY CT HEAD AND SPINE Routine 04/07/2023 7:25 PM EDT documented in this encounter Results * Film Library- Storage Only CT Head And Spine (04/07/2023 7:25 PM EDT) Narrative [facility] - 04/07/2023 7:25 PM EDT This exam is auto-finalizing. It's purpose is for storage only. Patel M Thadani MD [facility] [place] LIBRARY ORD ERABLES [place], [place] documented in this encounter Visit Diagnoses Not on filedocumented in this encounter Care Teams Non Licensed Nuclear Equipment Operator Relationship Specialty Start Date End Date Coni Lim MD [address] [place] [address] PCP - General 07/16/10 documented as of this encounter
--- OUTSIDE RECORDS SUMMARY | 2024-04-30 13:39 | XMS_ITS | Encounter Summary ---
Author Organization [facility] Address [facility] [place] [address] Care Team Providers Care Information Technology Data Analyst Name Role Phone Coni Lim MD Primary Care Provider [phone] Encounter Details Date Type Department Care Team (Late st Contact Info) Description 04/07/2023 7:25 PM EDT Ancillary Procedure [place] [address] Patel Griggs MD [facility] [place] [address] Social History Tobacco Use Types Packs/Day Years [...] Associated Diagnosis Comments FILM LIBRARY STORAGE ONLY DX CHEST Routine 04/07/2023 7:20 PM EDT documented in this encounter Results * Film Library- Storage Only DX Chest (04/07/2023 7:20 PM EDT) Narrative [facility] - 04/07/2023 7:20 PM EDT This exam is auto-finalizing. It's purpose is for storage only. Patel Griggs MD IM FILM LIBRARY ORD ERABLES [facility] [place], [place] documented in this encounter Visit Diagnoses Not on filedocumented in this encounter Care Teams Information Technology Data Analyst Relationship Specialty Start Date End Date Coni Lim MD [address] [place] [address] PCP - General 07/16/10 documented as of this encounter
--- OUTSIDE RECORDS SUMMARY | 2024-04-30 13:39 | XMS_ITS | Encounter Summary ---
[place] [address] Care Team Providers Care Utility Engineer Name Role Phone Coni Lim MD Primary Care Provider Reason for Referral * Audiology Exam (Routine) - Authorized Specialty Diagnoses / Procedures Referred By Contac t Referred To Contact Audiology Diagnoses Bilateral hearing loss, unspecified hearing loss type Coni Lim MD [address] [place] [address] [facility] [address] [place] [id number] Referral ID Status Reason Start Date Expiration Date Visits Requested Visits Authorized [id number] Authorized Specialty Service Requested PCP Updated and/or Approved 12/04/2023 06/06/2024 6 6 Encounter Details Date Type Department Care Team (Latest Contact Info) Description 12/24/2023 Transcribe Orders eDH Incoming Referrals [phone] Coni Lim MD [address] [employer], [place] [id number] Bilateral hearing loss, unspecified hearing loss type Social History Tobacco Use Types Packs/Day Years [...] as of this encounter Plan of Treatment Scheduled Referrals Name Type Priority Associated Diagnoses Orde r Schedule Referral to Audiology Outpatient Referral Routine Bilateral hearing loss, unspecified hearing loss type Ordered: 12/24/2023 documented as of this encounter Visit Diagnoses Diagnosis Bilateral hearing loss, unspecified hearing loss type documented in this encounter Care Teams Utility Engineer Relationship Specialty Start Date End Date Coni Lim MD [address] [place] [address] PCP - General 07/16/10 documented as of this encounter
--- OUTSIDE RECORDS SUMMARY | 2024-04-30 13:39 | XMS_ITS | Encounter Summary ---
Author Organization [facility] Address [facility] [place] [address] Care Team Providers Care Air Carrier Operations Inspector Name Role Phone Coni Lim MD Primary Care Provider [phone] Encounter Details Date Type Department Care Team (Late st Contact Info) Description 04/07/2023 External [place] [address] Social History Tobacco Use Types Packs/Day Years [...] Procedure Name Priority Date/Time Associated Diagnosis Comments ECG SCAN Routine 04/07/2023 7:15 PM EDT documented in this encounter Results * Scan Doc: ECG (04/07/2023 7:15 PM EDT) Historical Provider MD BRITO MGR SCAN EX T ORDR/RSLT documented in this encounter Visit Diagnoses Not on filedocumented in this encounter Care Teams Air Carrier Operations Inspector Relationship Specialty Start Date End Date Coni Lim MD [address] [place] [address] PCP - General 07/16/10 documented as of this encounter
--- OUTSIDE RECORDS SUMMARY | 2024-04-30 13:39 | XMS_ITS | Encounter Summary ---
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 Setter Apprentice Name Role Phone Coni Lim MD Primary Care Provider [phone] Reason for Visit * Auth/Cert Specialty Diagnoses / Procedures Referred By Ruby garvin Referred To Contact Diagnoses Unstable angina Chest pain Procedures EMERGENCY IPI Referral ID Status Reason Start Date Expiration Date Visits Re quested Visits Authorized [id number] 1 1 Encounter Details Date Type Department Care Team (Late st Contact Info) Description 06/10/2021 9:00 AM EDT - 06/10/2021 10:00 AM EDT Surgery [place] [id number] Jose Trimble MD [facility] [place] [address] CARDIAC CATHETERIZATION Social History Tobacco Use Types Packs/Day Years [...] on file documented as of this encounter Last Filed Vital Signs Vital Sign Reading Time Taken Comments Blood Pressure 102/65 06/10/2021 7:56 AM EDT Pulse 67 06/10/2021 4:05 AM EDT Temperature 36.6 ??C (97.9 ??F) 06/10/2021 7:56 AM ED T Respiratory Rate 16 06/10/2021 7:56 AM EDT Oxygen Saturation 94% 06/10/2021 7:56 AM EDT Inhaled Oxygen Concentration - - Weight 115.8 kg (255 lb 6.4 oz) 06/10/2021 4:05 AM EDT Height 177.8 cm (5' 10) 2021 7:16 PM EDT Body Mass Index 36.63 2021 7:16 PM EDT documented in this encounter Discharge Summaries * Supa Alegria MD - 06/10/2021 5:38 PM EDT Discharge Summary Patient Name: Romeo Coelho Patient Age: 56 y.o. Language: Mexican Race: White Ethnicity: Not nor Admit date: 2021 Discharge date and time: 06/10/2021 5:40 PM Attending Physician: Supa Alegria MD Discharge Physician: Supa Alegria MD Follow-up Recommendations for Providers: Romeo Coelho is a 56 year old male admitted for chest pain concerning for unstable angina. 1. ASCVD / Microvascular angina: [facility] 06/10/21 without obstructive CAD and with patent prior stents.Echo with preserved EF with inferior wall motion abnormalities. Continued on home CAD medication regimen. Consider up titration of antianginals (Imdur or Ranexa) if chest pain reoccurs. 2. Right groin cellulitis: Initially treated with IV vancomycin and Zosyn. Blood cultures negative.Afebrile and no leukocytosis. Discharged on cephalexin 500mg QID for 5 days. PCP to follow. 3. T2DM: A1c 9.4%. Discharged on home regimen of metformin 1000mg BID. Further management per PCP. Consider SGLT2i. 4. Dental pain: recommended outpatient dentist appointment. Inpatient Provider Contact Information: MD Edel Escobar APRN Sarah Hansen, PA-C Cardiovascular Medicine [phone] Discharge Diagnoses (Hospital Problems) and Secondary Diagnoses (Chronic Problems): Active Hospital Problems Diagnosis ??? Unstable angina ??? Chest pain ??? Smoker ??? CAD (coronary artery disease) ??? Dyslipidemia ??? HTN (hypertension) ??? DM (diabetes mellitus) Resolved Hospital Problems No resolved problems to display. Active Non-Hospital Problems Diagnosis ??? Hx-TIA (transient ischemic attack) ??? GERD (gastroesophageal reflux disease) ??? Conjunctival lesion Operations/Major Procedures: [facility] 06/10/21 Hemodynamics: Left Heart Pressures Resting: Syst Diast EDP a v m Ao 96 63 76 LV 108 25 Comments: LV--AO Pullback: AOp: 99/66 (81) LVp: 107/9, 25. Coronary Angiography: Dominance: Right Left Main There was a 15% single discrete stenosis of the distal segment of the left main artery. The left main was large. Left Anterior Descending There was mild diffuse (<=25% stenosis) disease of the entire vessel segment of the left anterior descending artery (LAD). The LAD was large. The previously placed stent is patent. Left Circumflex There was mild diffuse (<=25% stenosis) disease of the entire vessel segment of the left circumflex artery (LCX). The LCX was large. The previously placed stent is patent. Right Coronary Artery There was mild diffuse (<=25% stenosis) disease of the entire vessel segment of the right coronary artery (RCA). The RCA was large. The previously placed stent is patent. Vascular Access: Vascular Access Management: Mechanical Compression of the right radial artery access site was performed. Conclusions: * Nonobstructive coronary artery disease * Elevated left ventricular end diastolic pressure Complications/Events: The patient had no complications during these procedures. ?? Other Studies: Echo 06/09/21 SUMMARY: 1. The left ventricular chamber size is normal. Left ventricular wall thickness is normal.There is normal global left ventricular systolic function. ??Ejection fraction is estimated to be 55%.There are segmental left ventricular wall motion abnormalities involving the RCA territory.The basal to apical inferior wall is hypokinetic. Left ventricular diastolic function is normal. 2. The right ventricle is mildly dilated.Right ventricular global systolic function is low normal.Pulmonary artery hypertension could not be assessed due to inadequate tricuspid regurgitation jet. 3. The left atrium is mildly dilated. 4. There is no hemodynamically significant valve disease. 5. See remainder of report for additional findings. 6. Compared to the prior study in 2019 there is a new inferior wall motion abnormality. History of Presentation: Per H&P by Dr. Hoyos This is a 56 years old gentleman with past medical history of coronary artery disease, status postmultiple PCIs. He had 2 stents to mid LAD and proximal OM1 in 2011, LAD stent in 2012, RCA stent [id number]. His most recent coronary angiogram (2019) showed 40% mid LAD stenosis and 45% stenosis of theostial segment of RPDA of RCA. He also has history of insulin-dependent diabetes mellitus, essential hypertension, hyperlipidemia, depression, restless leg syndrome and gout. ?? Patient presented to an outside hospital with multiple complaints but mainly he had retrosternal chest pain that has been going on for the last 3 days. He describes it as pressure-like and radiating to his left jaw and arm. Exacerbated with physical activity and alleviated with rest. Was hesitant to take any nitroglycerin as this has dropped his blood pressure previously. His chest pain has been associated with dyspnea, nausea, and episode of vomiting this morning, diaphoresis and dizziness. Hesays it felt similar to his old chest pain when he had the stents. Previously this chest pain was brought by strenuous activity like chopping wood, however for the last few days this pain has been coming with minimal walking inside the room. He had 4-5 episodes in the last 3 days. He was loaded with aspirin, Plavix and started on IV heparin at the other facility. His troponin has been within acceptable range. EKG showed NSR with no JOSE ANGEL, STD, TWI, or PRWP ?? Of note patient has been complaining of right groin abscess that has drained spontaneously. He had a CT scan at the facility that did not reveal any drainable abscess. He was started on Zosyn and evaluated by general surgery who did not see any indication for surgical intervention at that time. Blood cultures were obtained at the other facility. Hospital Course: ?? Unstable angina, likely microvascular angina ASCVD s/p multiple PCI to mLAD due to frequent instent restenosis since 2011 and last JACINAD to RCA [id number]. Last [facility] 2018 with residual ~40% LAD and RCA Romeo Coelho is a 56 y.o. male with a past medical history of CAD s/p multiple PCIs, mLAD and pOM1 in 2012,??mLAD in 2013, RCA in 2017, most recent LHC in 2019 with??40% mid LAD stenosis and 45% stenosis of the ostial segment of??RPDA??of??RCA, preserved LVEF at the time. In addition, history ofHTN, HLD, T2DM, Hx of CVA, RLS and depression. He presented with typical worsening chest pain and transferred to our hospital for unstable angina. Troponin negative x5. Started on DAPT with aspirin and Plavix, as well as IV heparin. Echo revealed preserved EF of 55% with inferior WMAs which are newcompared to 2019. Careful consideration of timing of LHC as he also has R groin cellulitis. He received 2 days of IV antibiotics and remained afebrile without leukocytosis. In addition, blood cultures drawn at and OSH were NGTD. Infection was localized and therefore decision to proceed with LHC was made. LHC on 06/10/21 revealed nonobstructive ASCVD with previously placed patent LAD and RCA stents. Chest pain likely microvascular angina. He was continued on home rosuvastatin 40mg daily, losartan 12.5mg daily, metoprolol succinate 100mg daily, Imdur 30mg daily and Ranexa 500mg BID with PRN SL NTG. No adjustments in antianginals as patient ambulated and remained chest pain free during thishospitalization. Could consider increase in Imdur or Ranexa. Right radial access site without active bleeding or hematoma at time of discharge. Ambulated the unit without chest pain or SOB prior to discharge. Follow up with gas line installer, Dr. Gutierrez, was arranged. ?? Right??groin cellulitis, abscess with spontaneous drainage Patient noted to have right groin erythema consistent with cellulitis. He remained afebrile and without leukocytosis. Blood cultures obtained at OSH were NGTD at 2 days (spoke with microbiology at [facility] on 06/10/21). These were repeated at 06/08 and were also NGTD x1 day. He was continued on IV v ancomycin and Zosyn. These were transitioned to Cephalexin 500mg QID for 5 more days. PCP follow uparranged. ?? Elevated d-dimer Presentation is atypical for PE as he was not tachycardic or hypoxic. He was treated with anticoagulation for ACS initially. Decision to defer CTA chest was made. ?? Diabetes mellitus, [id number], uncontrolled A1c of 9.4%. Home metformin held for cath. Additional coverage with sliding scale and meal associated insulin. Hold metformin for 48 hours after contrast exposure. Diabetes management team consulted.Recommendations to continue metformin 1000mg BID and further management per PCP. Could consider SGLT2i. ?? HTN BP trend 12 hours prior to discharge were BP: (102-134)/(65-81) . He was continued on home hfpazjgo10.5mg daily, metoprolol succinate 100mg daily and Imdur 30mg daily. ?? Hx of CVA with residual deficit Decreased sensation in LLE Continued on aspirin and statin therapy. ?? HLD Lipid panel TC 207, HDL 29, TG 235, LDL 131. Continued on high intensity statin. ?? Restless leg syndrome Continued on??pramipexole. ?? Hx of depression Continued on Cymbalta. ?? Poor oral hygiene, dental pain Outpatient follow up with dentist was recommended. ? Functional and Cognitive Status: Alert and oriented x 3, ambulatory-independent Important Studies and Lab Data: Labs: Lab Results Component Value Date WBC 9.0 06/10/2021 HGB 14.2 06/10/2021 HCT 42.8 06/10/2021 PLATELET 251 06/10/2021 No results for input(s): INR in the last 168 hours. Lab Results Component Value Date NA 134 (L) 06/10/2021 K 4.1 06/10/2021 CL 103 06/10/2021 CO2 18 (L) 06/10/2021 BUN 9 (L) 06/10/2021 CREATININE 0.79 (L) 06/10/2021 No results for input(s): TSH in the last 7068 hours. No results for input(s): HA1C in the last 7068 hours. Recent Labs 06/10/21 1307 06/10/21 0344 06/09/21 1747 TROPONINT <0.01 <0.01 <0.01 Lab Results Component Value Date CHLPL 207 06/09/2021 HDL 29 06/09/2021 CHOLHDL 7.1 06/09/2021 TRIG 235 06/09/2021 LDLCHOL 131 06/09/2021 LDLDIRECT 102 09/13/2017 Pending Studies and Lab Data: Blood cultures at [facility] and [facility]. Discharge Conditions/Prognosis: Alert and oriented x 3, ambulatory-independent. Ambulated without chest pain or SOB prior to discharge. Discharge to: Home. Updated Allergies/ADRs: Allergies Allergen Reactions ??? Thallium-201 Severe cardiac event ??? Lisinopril Other (See Comments) cough ??? Paper Tape [Adhesive Tape] Rash Immunizations Given this Hospitalization: Immunization History Administered Date(s) Administered ??? Influenza PF, Split 07/30/2013 ??? Influenza Vaccine (Novel) [id number], Injectable 05/24/2009 ??? Influenza Vaccine w/Preservative, Split 06/15/2012 ??? Influenza Vaccine, Whole 06/21/2008, 05/24/2009 ??? Pneumococcal Polyvalent 23 05/24/2009 Discharge Medications: Your Medications New Medications Dose Details cephALEXin 500 mg Cap Commonly known as: Keflex Take 1 capsule by mouth 4 times daily for 5 days. 500 mg Quantity: 20 capsule Refills: 0 Continued medications with new dosing Dose Details aspirin 81 mg Chew Take 81 mg by mouth daily. What changed: how much to take 81 mg Quantity: 30 tablet Refills: 3 metFORMIN XR 500 mg Tablet sr Commonly known as: Glucophage XR Take 2 tablets by mouth 2 times daily. Hold for 48 hours post contrast exposure Start taking on: June 12, 2021 What changed: ?? how to take this ?? additional instructions ?? These instructions start on June 12, 2021. If you are unsure what to do until then, ask your doctor or other care provider. 1,000 mg Quantity: 30 tablet Refills: 12 Continued medications, unchanged Dose Details acetaminophen 325 mg Tab Commonly known as: Tylenol Take 2 tablets by mouth every 4 hours as needed. 650 mg Quantity: 30 tablet Refills: 0 buPROPion SR 150 mg Sr12 Commonly known as: Wellbutrin SR Take 150 mg by mouth 2 times daily. 150 mg Refills: 0 colchicine 0.6 mg Tab Commonly known as: Colcrys Take 0.6 mg by mouth 2 times daily as needed (gout). 0.6 mg Refills: 0 cyclobenzaprine 10 mg Tab Commonly known as: Flexeril Take 10 mg by mouth nightly. 10 mg Refills: [address] 60 mg Cpdr Commonly known as: Cymbalta Take 60 mg by mouth 2 times daily. 60 mg Refills: 0 erythromycin 5 mg/gram (0.5 %) Oint Commonly known as: Romycin Place into the right eye 3 times daily. Quantity: 3.5 g Refills: 0 gabapentin 300 mg Cap Commonly known as: Neurontin Take 300 mg by mouth 3 times daily. 2 tabs in morning, 2 tabs in evening and 3 tabs at bedtime 300 mg Refills: 0 isosorbide mononitrate CR 30 mg Tablet sr Commonly known as: Imdur Refills: 0 levalbuteroL 45 mcg/actuation Hfaa Commonly known as: XOPENEX HFA Inhale 1-2 puffs into the lungs every 6 hours as needed for Wheezing or Shortness of Breath. 1-2 puff Refills: 0 losartan 25 mg Tab Commonly known as: Cozaar 12.5 mg. 12.5 mg Refills: 0 metoprolol succinate XL 100 mg Tablet sr Commonly known as: Toprol-XL Take 1 tablet by mouth daily. 100 mg Quantity: 30 tablet Refills: 12 nitroGLYcerin 0.4 mg Subl Commonly known as: Nitrostat Place 1 tablet under the tongue every 5 minutes as needed for Chest pain. 0.4 mg Quantity: 25 tablet Refills: PRN OneTouch Verio test strips Strp USE ONE STRIP DAILY DIRECTED Generic drug: blood sugar diagnostic strips Refills: 0 pantoprazole EC 40 mg Tbec Commonly known as: Protonix Take 40 mg by mouth 2 times daily. 40 mg Refills: 0 pramipexole 0.5 mg Tab Commonly known as: MIRAPEX Take 0.5 mg by mouth nightly. 0.5 mg Refills: 0 Ranexa 500 mg Tb12 Take 500 mg by mouth 2 times daily. Generic drug: ranolazine ER 500 mg Refills: 0 rosuvastatin 40 mg Tab Commonly known as: Crestor Take 1 tablet by mouth every evening. 40 mg Quantity: 90 tablet Refills: 3 topiramate 50 mg Tab Commonly known as: TOPAMAX Take 50 mg by mouth nightly. 50 mg Refills: 0 Ventolin HFA 90 mcg/actuation Hfaa INHALE TWO PUFFS BY MOUTH EVERY 4 TO 6 HOURS Generic drug: albuteroL Refills: 0 STOPPED Medications amLODIPine 2.5 mg Tab Commonly known as: Norvasc metroNIDAZOLE 250 mg Tab Commonly known as: Flagyl nicotine polacrilex 4 mg Lozg Commonly known as: Commit oxyCODONE 10 mg Tab Commonly known as: ROXICODONE varenicline 0.5 mg (11)- 1 mg (42) Dspk Commonly known as: CHANTIX Smoking Status at Discharge: Social History Tobacco Use Smoking Status Current Every Day Smoker ??? Packs/day: 0.20 ??? Types: Cigarettes Smokeless Tobacco Former User Tobacco Comment 1-2 cigarette a day since 2018, he was a heavy smoker. Instructions Given to Patient at Discharge: Patient Instructions General Instructions You were hospitalized for treatment of your chest pain. You underwent a cardiac catheterization that revealed patent (open) prior stents and nonobstructive disease not requiring further stenting. Chest pain may be due to microvascular angina. There is room for adjustment in your home medications ifthis chest pain persists. No changes were made this hospitalization as you remained chest pain free. Call your doctor if: Chest pain, dyspnea, pain or swelling in legs occurs, or for weight gain of 2 pounds overnight or 5pounds in 5 days. If you have non-emergent questions, prior to your follow-up visit call: Thursday-Thursday between the hours of 8AM-5PM please call the Cardiology Clinic [phone] to speak with a nurse. All other hours please call the Hospital Controlled Area Checker [phone] and ask to speak to the picker operator on-call. Return to work: One week Driving: No driving for 48 hours after cath Post Cardiac Catheterization: You may resume light activity such as walking after your discharge. Do not do any strenuous activity for the first week after your catheterization, including no lifting anything over 10 lbs. This is to help protect your cardiac cath access site and to continue to let it heal properly. You may shower, but do not submerge your cardiac cath access site in water for 1 week (no tubs, hot tubs, lakes, or pools). Follow up Appointments: Doctor Where Phone # Date Time PCP COLEEN Wen [address] [place] [address] Jun 20 10:00am Construction Economist Dr. Gutierrez [facility] Cardiology [phone] ThursdayJul 23 11:40am Discharge References/Attachments Angina (Mexican) Discussed with MD Coni Escobar PA-C Pager #[phone] 06/10/2021 documented in this encounter Discharge Instructions * Discharge Instructions* Coni Lew PA - 06/10/2021 4:52 PM EDT You were hospitalized for treatment of your chest pain. You underwent a cardiac catheterization that revealed patent (open) prior stents and nonobstructive disease not requiring further stenting. Chest pain may be due to microvascular angina. There is room for adjustment in your home medications ifthis chest pain persists. No changes were made this hospitalization as you remained chest pain free. Call your doctor if: Chest pain, dyspnea, pain or swelling in legs occurs, or for weight gain of 2 pounds overnight or 5pounds in 5 days. If you have non-emergent questions, prior to your follow-up visit call: Thursday-Thursday between the hours of 8AM-5PM please call the Cardiology Clinic [phone] to speak with a nurse. All other hours please call the Hospital Controlled Area Checker [phone] and ask to speak to the picker operator on-call. Return to work: One week Driving: No driving for 48 hours after cath Post Cardiac Catheterization: You may resume light activity such as walking after your discharge. Do not do any strenuous activity for the first week after your catheterization, including no lifting anything over 10 lbs. This is to help protect your cardiac cath access site and to continue to let it heal properly. You may shower, but do not submerge your cardiac cath access site in water for 1 week (no tubs, hot tubs, lakes, or pools). Follow up Appointments: Doctor Where Phone # Date Time PCP COLEEN Wen [address] [place] [address] Jun 20 10:00am Construction Economist Dr. Gutierrez [facility] Cardiology [phone] ThursdayJul 23 11:40am * Patient Instructions* Coni Lew PA - 06/10/2021 3:07 PM EDT * Attachments The following attachments cannot be sent through Care Everywhere. * Angina (Mexican) documented in this encounter Medications at Time of Discharge Medication Sig Dispensed Refills Start Date End Date ranolazine ER (Ranexa) 500 mg Tablet Sustained Release 12 hr Take 500 mg by mouth 2 times daily. aspirin 81 mg Tablet, Chewable Take 81 mg by mouth daily. 30 tablet 3 06/10/2021 nitroGLYcerin (Nitrostat) 0.4 mg Tablet, Sublingual Place 1 tablet under the tongue every 5 minutes as needed for Chest pain. 25 tablet 06/10/2021 metFORMIN XR (Glucophage XR) 500 mg Tablet Sustained Release 24 hr Take 2 tablets by mouth 2 times daily. Hold for 48 hours post contrast exposure 30 tablet 12 06/12/2021 Ventolin HFA 90 mcg/actuation HFA Aerosol Inhaler INHALE TWO PUFFS BY MOUTH EVERY 4 TO 6 HOURS 05/18/2020 [employer] Verio test strips Strip USE ONE STRIP DAILY DIRECTED 03/02/2020 isosorbide mononitrate CR (Imdur) 30 mg Tablet Sustained Release 24 hr 05/19/2020 losartan (Cozaar) 25 mg Tablet 12.5 mg. 03/27/2020 erythromycin (ROMYCIN) 5 mg/gram (0.5 %) OintmentIndications:Co njunctival lesion Place into the right eye 3 times daily. 3.5 g 05/24/2020 metoprolol succinate (TOPROL-XL) 100 mg Tablet Sustained Release 24 hr Take 1 tablet by mouth daily. 30 tablet 12 03/16/2019 rosuvastatin (CRESTOR) 40 mg Tablet Take 1 tablet by mouth every evening. 90 tablet 3 03/16/2019 acetaminophen (TYLENOL) 325 mg Tablet Take 2 tablets by mouth every 4 hours as needed. 30 tablet 03/16/2019 colchicine (COLCRYS) 0.6 mg Tablet Take 0.6 mg by mouth 2 times daily as needed (gout). pantoprazole (PROTONIX) 40 mg Tablet, Delayed Release (E.C.) Take 40 mg by mouth 2 times daily. buPROPion (WELLBUTRIN SR OR ZYBAN) 150 mg Tablet Sustained Release Take 150 mg by mouth 2 times daily. topiramate (TOPAMAX) 50 mg Tablet Take 50 mg by mouth nightly. levalbuterol (XOPENEX HFA) 45 mcg/actuation HFA Aerosol Inhaler Inhale 1-2 puffs into the lungs every 6 hours as needed for Wheezing or Shortness of Breath. pramipexole (MIRAPEX) 0.5 mg Tablet Take 0.5 mg by mouth nightly. gabapentin (NEURONTIN) 300 mg capsule Take 300 mg by mouth 3 times daily. 2 tabs in morning, 2 tabs in evening and 3 tabs at bedtime DULoxetine (CYMBALTA) 60 mg capsule Take 60 mg by mouth 2 times daily. cyclobenzaprine (FLEXERIL) 10 mg tablet Take 10 mg by mouth nightly. cephALEXin (Keflex) 500 mg Capsule Take 1 capsule by mouth 4 times daily for 5 days. 20 capsule 06/10/2021 06/15/2021 documented as of this encounter Progress Notes * Fabienne Morelos RN - 06/10/2021 6:29 PM EDT Tele d/c. IV d/c. Discharge paper working given. Education completed. Verbalizes understanding. * Dmitri Beard - 06/10/2021 4:00 PM EDT Referral for Non-Emergent Medical Transportation (NEMT) received from Kim MACIAS on 06/10/21 ?? Is the patient listed having [place] or [place] Medicaid? Y ?? If yes, is the patient's Medicaid currently active? Y ?? [place] Medicaid recipients only - ?? Did the patient arrive by ambulance/EMS or [place] Medicaid-assisted transportation? Y ?? If no, is the patient able to use the [employer] bus service to a destination surrounding , if applicable? NA ?? If no, does the patient have family or friends that can pick them up at discharge? NA ?? If no, does the patient have any money either on hand, available at home and/or through a creditcard? NA ?? If no, is the patient able to reimburse for OCM???s payment for transport, if granted? NA ?? If no, contact local non-emergent transportation brokers for a quote from to destination and request payment authorization from CM-Managers. Transport initiated/not confirmed: Spoke with NOELLE from [facility] who initiated a ride with their scheduling department/dispatch to pick patient up at discharge 06/10/21 from the MAIN entrance at ~18:00 en route to HOME UPDATE 16:06 Discharge Transportation confirmed: Spoke with ELMIRA from [facility] who confirmed a medical driver provided by public transportation inspectorULISES will arrive to pick patient up at discharge 06/10/21 from the MAIN entrance at 18:00 en route to HOME. Bedside nurse notified via eDH chat. [facility] PHONE: [phone] * Supa Alegria MD - 06/10/2021 8:04 AM EDT Images from the original note were not included. Inpatient Cardiology Progress Note Patient Name: Romeo Coelho Service: SENIOR WEB ENGINEER / PA Responsible Attending: Supa Alegria MD Reason for continued hospitalization: Evaluation and management of unstable angina- LHC and echo Right groin cellulitis- IV abx Medication adjustment Active Problems: Active Hospital Problems Diagnosis ??? Unstable angina ??? Chest pain ??? Smoker ??? CAD (coronary artery disease) ??? Dyslipidemia ??? HTN (hypertension) ??? DM (diabetes mellitus) Resolved Hospital Problems No resolved problems to display. Interval History: Denies any chest pain or active shortness of breath. RN reports nausea overnight,patient reports resolution. In agreement for C today. Continues on IV antibiotics for concern of right groin cellulitis. Blood cultures NGTD at 1 day here at . In addition, I spoke with microbiology at OSH and reported these are NGTD at 2 days. Right groin remains erythematous, but symptomatically seems to be less bothersome. Review of Systems: Review of Systems Constitutional: Positive for diaphoresis (none here) and fever (at home, none here). Respiratory: Negative for cough and shortness of breath. Cardiovascular: Positive for chest pain (none here). Negative for palpitations and leg swelling. Gastrointestinal: Negative for abdominal pain. Genitourinary: Negative for difficulty urinating and penile swelling. Right groin tenderness Musculoskeletal: Negative for gait problem. Skin: Positive for rash (right groin). Neurological: Negative for dizziness, syncope and light-headedness. Psychiatric/Behavioral: Negative for confusion. All other systems reviewed and are negative. Telemetry: HR: 60-70s, SR with rare PVC Meds: Scheduled Meds: ??? insulin lispro 0-8 Units Subcutaneous TID WC ??? vancomycin 1,750 mg Intravenous Q12H ??? Vancomycin Level - MAR Order Reminder NOT APPLICABLE Once ??? insulin lispro 1-6 Units Subcutaneous Q4H SONIA ??? sodium chloride 0.9 % (flush) 5 mL Intravenous BID ??? clopidogreL 75 mg Oral Daily ??? atorvastatin 80 mg Oral QPM ??? piperacillin-tazobactam 4.5 g Intravenous Q8H ??? aspirin 81 mg Oral Daily ??? buPROPion SR 150 mg Oral BID ??? DULoxetine DR 60 mg Oral BID ??? gabapentin 300 mg Oral TID ??? isosorbide mononitrate CR 30 mg Oral QAM ??? losartan 12.5 mg Oral Daily ??? metoprolol succinate XL 100 mg Oral Daily ??? pantoprazole EC 40 mg Oral BID ??? pramipexole 0.5 mg Oral Nightly ??? topiramate 50 mg Oral Nightly Continuous Infusions: ??? heparin (porcine) infusion 1,250 Units/hr (06/09/21 1522) PRN Meds:sodium chloride 0.9 % (flush), lidocaine, nitroGLYcerin, heparin (porcine) AND heparin(porcine) infusion, glucose 40% oral geL OR dextrose 10% OR glucagon Physical Exam: Vital Signs: Last value Range last 24 hrs Temperature Temp: 36.6 ??C (97.9 ??F) Temp: [36.4 ??C (97.5 ??F)-36.7 ??C (98.1 ??F)] Heart Rate Heart Rate: 67 Heart Rate: [62-70] Blood Pressure BP: 102/65 BP: (102-118)/(50-77) Respiratory Rate Resp: 16 Resp: [12-18] SpO2 SpO2: 94 % SpO2: [93 %-96 %] Physical Exam Vitals and nursing note reviewed. Constitutional: Appearance: Normal appearance. HENT: Head: Normocephalic and atraumatic. Mouth/Throat: Pharynx: Oropharynx is clear. Eyes: Conjunctiva/sclera: Conjunctivae normal. Cardiovascular: Rate and Rhythm: Normal rate and regular rhythm. Pulses: Normal pulses. Heart sounds: Normal heart sounds. Pulmonary: Effort: Pulmonary effort is normal. No respiratory distress. Breath sounds: Normal breath sounds. No wheezing, rhonchi or rales. Abdominal: General: There is no distension. Palpations: Abdomen is soft. Genitourinary: Comments: Right groin erythema and warmth Musculoskeletal: Cervical back: Normal range of motion and neck supple. Right lower leg: No edema. Left lower leg: No edema. Skin: General: Skin is warm and dry. Capillary Refill: Capillary refill takes less than 2 seconds. Neurological: Mental Status: He is alert and oriented to person, place, and time. Psychiatric: Mood and Affect: Mood normal. Lab Comments: Recent Labs 06/10/21 0344 06/09/21 0550 06/08/21 193 WBC 9.0 8.2 8.1 HGB 14.2 14.1 13.5* HCT 42.8 42.0 39.4* PLATELET 251 240 219 No results for input(s): INR in the last 168 hours. Recent Labs 06/10/21 03406/08/21 1931 NA 134* 133* K 4.1 4.0 CL 103 100 CO2 18* 22 BUN 9* 12 CREATININE 0.79* 0.73* No results for input(s): AST, ALT, ALKPHOS, BILITOT, BILIDIR in the last 168 hours. Recent Labs 06/10/21 0344 06/08/21 193 CALCIUM 9.4 9.3 Recent Labs 06/10/21 0344 06/09/21 1747 06/09/21 1130 TROPONINT <0.01 <0.01 <0.01 Pertinent Radiographic/Diagnostic Results: LHC 06/10/21 Pending Echo 06/09/21 SUMMARY: 1. The left ventricular chamber size is normal. Left ventricular wall thickness is normal.There is normal global left ventricular systolic function. Ejection fraction is estimated to be 55%.There aresegmental left ventricular wall motion abnormalities involving the RCA territory.The basal to apical inferior wall is hypokinetic. Left ventricular diastolic function is normal. 2. The right ventricle is mildly dilated.Right ventricular global systolic function is low normal.Pulmonary artery hypertension could not be assessed due to inadequate tricuspid regurgitation jet. 3. The left atrium is mildly dilated. 4. There is no hemodynamically significant valve disease. 5. See remainder of report for additional findings. 6. Compared to the prior study in 2019 there is a new inferior wall motion abnormality. Assessment: Romeo Coelho is a 56 y.o. male with a past medical history of CAD s/p multiple PCIs,mLAD and pOM1 in 2011, mLAD in 2012, RCA in 2016, most recent LHC in 2019 with 40% mid LAD stenosisand 45% stenosis of the ostial segment of RPDA of RCA, preserved LVEF at the time. In addition, history of HTN, HLD, T2DM, Hx of CVA, RLS and depression. He presented with typical worsening chest pain and transferred to our hospital for unstable angina. Started on DAPT with aspirin and Plavix, as well as IV heparin. Echo revealed preserved EF of 55% with inferior WMAs which are new compared to 2019. Plan for LHC. Careful consideration of timing of LHC as he also has R groin cellulitis. He remains on IV antibiotics. There is no leukocytosis or fevers. Blood cultures drawn at on 06/08 are NGTD x1 day. Blood cultures at OSH drawn 06/07 are NGTD (reported over telephone by microbiology tech). Infection appears to be localized and therefore decision to proceed with LHC today. Plan: Unstable angina ASCVD s/p multiple PCI to mLAD due to frequent instent restenosis since 2011 and last JACINDA to RCA [id number]. Last LHC 2019 with residual ~40% LAD and RCA Troponin negative x5 Echo with pEF with new inferior WMAs compared to 2019 Continue DAPT with aspirin 81mg daily and Plavix 75mg daily Continue IV heparin Continue home rosuvastatin 40mg daily Continue home losartan 12.5mg daily, metoprolol succinate 100mg daily, Imdur 30mg daily and Ranexa 500mg BID PRN sl nitro for chest pain and PRN EKG for chest pain Plan for LHC today, remains NPO Right groin cellulitis, abscess with spontaneous drain Remains afebrile and without leukocytosis Continue IV vancomycin and Zosyn Follow-up blood cultures obtained at OSH- NGTD at 2 days Repeat blood cultures at 06/08 with NGTD x1 day If no improvement will reconsult general surgery/urology ?? Elevated d-dimer Presentation is atypical for PE, not tachycardic or hypoxic Currently on anticoagulation Defer CTA chest at this time ?? Diabetes mellitus, [id number], uncontrolled A1c of 9.4% Hold home metformin Continue sliding scale and meal associated insulin Consider SGLT2i upon discharge Diabetes management team consult ?? HTN BP: (102-111)/(50-74) over the last 12 hours Continue home losartan 12.5mg daily, metoprolol succinate 100mg daily and Imdur 30mg daily ?? Hx of CVA with residual deficit Decreased sensation in LLE Continue aspirin and statin therapy HLD Lipid panel TC 207, HDL 29, TG 235, LDL 131 Continue high intensity statin ?? Restless leg syndrome Continue pramipexole ?? Hx of depression On Cymbalta ?? Poor oral hygiene This can be another source of infection Will need OP f/u with a dentist ?? Routine Diet: NPO DVT Prophylaxis: IV heparin per ACS protocol Code Status: Attempt Cardiopulmonary Resuscitation - Inpatient Dispo: Pending clinical course Discussed with MD Coni Escobar PA-C Pager #[phone] 06/10/2021 Cardiology Attending Note I have seen and examined the patient. I agree with the findings above. Of note, he is feeling well today. His groin site shows no evidence of fluid collection. Blood cultures show no growth. We will proceed with coronary angiography and possible PCI Supa Alegria MD [facility] Total time spent on review of records prior to visit, face to face time with patient during visit, documentation, and coordination of care with other clinicians: 25 minutes. * Emily Olmedo RN - 06/10/2021 4:23 AM EDT Pt c/o nausea with no other symptoms at approx 0400. PRN zofran given with good effect. NPO maintained for cath procedure today. Continue with IV zosyn and Vanc. Hep gtt maintained. * Supa Alegria MD - 06/09/2021 7:39 AM EDT Images from the original note were not included. 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 Unstable angina ??? Chest pain ??? Smoker ??? CAD (coronary artery disease) -Coronary Angio 07/29/2013: 65% (FFR 0.74) mid LAD lesion s/p PCI with 3.5 X 18 mm JACINDA - [facility] 2009 post abnormal nuc stress +IW, EF normal - Recurrent angina, CCS class III - Cardiac catheterization 06/03/2012: 2 vessel CAD (LAD and LCX), +FFR of both lesions s/p PCI to pOM1 (3.0 x 18 mm Xience JACINDA) and mLAD (3.0 x 20 mm Promus Element JACINDA) ??? Dyslipidemia ??? HTN (hypertension) ??? DM (diabetes mellitus) Resolved Hospital Problems No resolved problems to display. Interval History: Denies any chest pain or active shortness of breath. Discussed overnight lab workand plan for echo and cath likely tomorrow. Continues on IV antibiotics for concern of right groin cellulitis, blood cultures in process. Review of Systems: Review of Systems Constitutional: Positive for diaphoresis and fever (at home). Respiratory: Negative for cough and shortness of breath. Cardiovascular: Positive for chest pain. Negative for palpitations and leg swelling. Gastrointestinal: Negative for abdominal pain. Genitourinary: Negative for penile swelling. Right groin tenderness Neurological: Negative for dizziness and light-headedness. All other systems reviewed and are negative. Telemetry: HR: 60s sinus rhythm Meds: Scheduled Meds: ??? insulin lispro 0-8 Units Subcutaneous TID WC ??? sodium chloride 0.9 % (flush) 5 mL Intravenous BID ??? clopidogreL 75 mg Oral Daily ??? atorvastatin 80 mg Oral QPM ??? piperacillin-tazobactam 4.5 g Intravenous Q8H ??? vancomycin 1,750 mg Intravenous Q12H ??? aspirin 81 mg Oral Daily ??? buPROPion SR 150 mg Oral BID ??? DULoxetine DR 60 mg Oral BID ??? gabapentin 300 mg Oral TID ??? isosorbide mononitrate CR 30 mg Oral QAM ??? losartan 12.5 mg Oral Daily ??? metoprolol succinate XL 100 mg Oral Daily ??? pantoprazole EC 40 mg Oral BID ??? pramipexole 0.5 mg Oral Nightly ??? topiramate 50 mg Oral Nightly ??? insulin lispro 1-4 Units Subcutaneous Q4H SONIA Continuous Infusions: ??? heparin (porcine) infusion 1,250 Units/hr (06/09/21 0043) PRN Meds:sodium chloride 0.9 % (flush), lidocaine, nitroGLYcerin, heparin (porcine) AND heparin(porcine) infusion, glucose 40% oral geL OR dextrose 10% OR glucagon Physical Exam: Vital Signs: Last value Range last 24 hrs Temperature Temp: 36.8 ??C (98.2 ??F) Temp: [36.5 ??C (97.7 ??F)-37.1 ??C (98.8 ??F)] Heart Rate Heart Rate: 64 Heart Rate: [64-79] Blood Pressure BP: 103/62 BP: (103-122)/(62-78) Respiratory Rate Resp: 16 Resp: [16] SpO2 SpO2: 95 % SpO2: [94 %-96 %] Physical Exam Vitals and nursing note reviewed. Constitutional: Appearance: Normal appearance. Cardiovascular: Rate and Rhythm: Normal rate and regular rhythm. Pulses: Normal pulses. Heart sounds: Normal heart sounds. Pulmonary: Effort: Pulmonary effort is normal. Breath sounds: Normal breath sounds. Abdominal: General: There is no distension. Palpations: Abdomen is soft. Genitourinary: Comments: Right groin erythema and warmth Musculoskeletal: Cervical back: Normal range of motion. Right lower leg: No edema. Left lower leg: No edema. Skin: General: Skin is warm and dry. Capillary Refill: Capillary refill takes less than 2 seconds. Neurological: Mental Status: He is alert and oriented to person, place, and time. Lab Comments: Recent Labs 06/09/2150 06/08/211930 WBC 8.2 8.1 HGB 14.1 13.5* HCT 42.0 39.4* PLATELET 240 219 No results for input(s): INR in the last 168 hours. Recent Labs 06/08/211930 NA 133* K 4.0 CL 100 CO2 22 BUN 12 CREATININE 0.73* No results for input(s): AST, ALT, ALKPHOS, BILITOT, BILIDIR in the last 168 hours. Recent Labs 06/08/211930 CALCIUM 9.3 Recent Labs 06/09/2150 06/08/211930 TROPONINT <0.01 <0.01 Pertinent Radiographic/Diagnostic Results: No new tests Assessment: Romeo Coelho is a 56 y.o. male past medical history of CAD, s/p multiple PCIs, mLAD and pOM1 in 2011, mLAD in 2012, RCA in 2017, most recent LHC in 2019 with 40% mid LAD stenosis and 45% stenosis of the ostial segment of RPDA of RCA, preserved LVEF at the time. He presented with typical worsening chest pain and transferred to our hospital for UA. Started on DAPT with aspirin Plavix, as well as IV heparin. He also has R groin cellulitis and was started on IV abx. We will plan for TTE to evaluate LV function and assess for regional wall motion abnormalities. Left heart cath once blood cultures drawn from OSH are confirmed negative for growth. Plan: Unstable angina DANIEL score of 4 Continue DAPT with aspirin and Plavix IV heparin Continue beta agatha, ACEi, and high intensity statin PRN sl nitro for chest pain PRN EKG for chest pain Telemetry monitoring TTE Cath hopefully tomorrow N.p.o. after midnight Right groin cellulitis, abscess with spontaneous drain Continue vancomycin and Zosyn Follow-up blood cultures obtained at OSH Repeat blood cultures in process If no improvement will reconsult general surgery/urology ?? Elevated d-dimer Presentation is atypical for PE, not tachycardic or hypoxic Currently on anticoagulation Defer CTA at this time ?? Diabetes mellitus, [id number] Poor control with A1c of 9.4 Carb level II diet Start SSI Carb ratio insulin Consider SGLT2i upon discharge ?? HTN Stable Continue losartan, metoprolol ?? Hx of CVA with residual Decreased sensation in LLE Continue aspirin, statin HLD Continue high intensity statin ?? Restless leg syndrome Continue pramipexole ?? Hx of depression On Cymbalta ?? Poor oral hygiene This can be another source of infection Will need OP f/u with a dentist ?Routine Diet: Daily Healthy Menu Choices/Cardiac diet ([facility]-Diet) CHO counting level 2 DVT Prophylaxis: already on heparin drip Code Status: Attempt Cardiopulmonary Resuscitation - Inpatient Dispo: Pending clinical course Discussed with MD Edel Escobar APRN Cardiovascular Medicine 06/09/2021 Cardiology Attending Note I have seen and examined the patient. I agree with the findings above. Of note, he has a good storyfor unstable angina and does have known coronary disease. I suspect he has recurrent in-stent restenosis. However, he has been started on antibiotics for right groin infection. We do not have blood cultures back yet. I do not want to proceed with stent placement in the context of active bacteremia. Since he is currently pain-free, will continue with pharmacologic therapy alone, follow-up on bloodcultures, and probably proceed tomorrow on antibiotics. Supa Alegria MD [facility] Total time spent on review of records prior to visit, face to face time with patient during visit, documentation, and coordination of care with other clinicians: 40 minutes. documented in this encounter H&P Notes * Isaiah Hoyos MD - 2021 8:18 PM EDT Images from the original note were not included. Cardiology H&P Patient info: Name: Romeo Coelho : 1965 PCP: Coni Lim MD PCP phone number: [phone] Date of Admission: 2021 ( Hospital Day 0 days ) Attending:Zuleyka Hodgson MD Patient Active Problem List Diagnosis ??? ','Unstable angina ??? Chest pain ??? Smoker ??? CAD (coronary artery disease) Overview Note: -Coronary Angio 07/29/2013: 65% (FFR 0.74) mid LAD lesion s/p PCI with 3.5 X 18 mm JACINDA - [facility] 2009 post abnormal nuc stress +IW, EF normal - Recurrent angina, CCS class III - Cardiac catheterization 06/03/2012: 2 vessel CAD (LAD and LCX), +FFR of both lesions s/p PCI to pOM1 (3.0 x 18 mm Xience JACINDA) and mLAD (3.0 x 20 mm Promus Element JACINDA) ??? Hx-TIA (transient ischemic attack) Overview Note: 2002, residual numbness in R hand and leg reported per pt, no mechanical limitations ??? Dyslipidemia ??? HTN (hypertension) ??? DM (diabetes mellitus) ??? GERD (gastroesophageal reflux disease) ??? Conjunctival lesion HPI: This is a 56 years old gentleman with past medical history of coronary artery disease, status post multiple PCIs. He had 2 stents to mid LAD and proximal OM1 in 2011, LAD stent in 2013, RCA stent in 2017. His most recent coronary angiogram (2019) showed 40% mid LAD stenosis and 45% stenosis of the ostial segment of RPDA of RCA. He also has history of insulin-dependent diabetes mellitus, essentialhypertension, hyperlipidemia, depression, restless leg syndrome and gout. Patient presented to an outside hospital with multiple complaints but mainly he had retrosternal chest pain that has been going on for the last 3 days. He describes it as pressure-like and radiating to his left jaw and arm. Exacerbated with physical activity and alleviated with rest. Was hesitant to take any nitroglycerin as this has dropped his blood pressure previously. His chest pain has been associated with dyspnea, nausea, and episode of vomiting this morning, diaphoresis and dizziness. Hesays it felt similar to his old chest pain when he had the stents. Previously this chest pain was brought by strenuous activity like chopping wood, however for the last few days this pain has been coming with minimal walking inside the room. He had 4-5 episodes in the last 3 days. He was loaded with aspirin, Plavix and started on IV heparin at the other facility. His troponin has been within acceptable range. EKG showed NSR with no JOSE ANGEL, STD, TWI, or PRWP Of note patient has been complaining of right groin abscess that has drained spontaneously. He had a CT scan at the facility that did not reveal any drainable abscess. He was started on Zosyn and evaluated by general surgery who did not see any indication for surgical intervention at that time. Blood cultures were obtained at the other facility. Review of Systems (positives in bold) General: chills, fatigue, fever or night sweats Eye: blurry vision, double vision, loss of vision or photophobia HENT: headaches, sore throat or vertigo Heme/Lymph: Bleeding/bruising, blood clots, jaundice, pallor or swollen lymph nodes Resp: cough, hemoptysis, orthopnea, shortness of breath or wheezing Cardio: As per HPI Gastro: abdominal pain, blood in stools, constipation, diarrhea, heartburn, hematemesis, melena or nausea/vomiting : dysuria, hematuria or urinary frequency/urgency MSK: joint pain, joint stiffness, joint swelling, muscle pain or muscular weakness Neuro:dizziness, gait disturbance, impaired coordination/balance, memory loss, numbness/tingling, seizures, speech problems, tremors or visual changes Derm: lumps or rash PMH Past Medical History: Diagnosis Date ??? Allergy ??? CAD (coronary artery disease), non-obstructive 05/31/2012 ??? Depression ??? DM (diabetes mellitus) 05/31/2012 ??? Dyslipidemia 05/31/2012 ??? GERD (gastroesophageal reflux disease) 05/31/2012 ??? HTN (hypertension) 05/31/2012 ??? Hx-TIA (transient ischemic attack) 06/03/2012 ??? Smoker 05/31/2012 PSH Past Surgical History: Procedure Laterality Date ??? CHOLECYSTECTOMY ??? HERNIA REPAIR ??? KNEE SURGERY Right ??? TONSILLECTOMY AND ADENOIDECTOMY Family History Family History Problem Relation Age of Onset ??? Myocardial Infarction Father 46 [place], CABG ??? Heart Disease Father ??? Diabetes Mother ??? Hypertension Mother ??? Hyperlipidemia Mother ??? Heart Disease Mother ??? Heart Disease Brother ??? Heart Disease Brother ??? Diabetes Brother ??? Diabetes Brother ??? Hypertension Brother ??? Hypertension Brother ??? Hyperlipidemia Brother ??? Hyperlipidemia Brother ??? Strabismus Neg Hx Social History Social History Socioeconomic History ??? Marital status: Spouse name: Not on file ??? Number of children: 3 ??? Years of education: Not on file ??? Highest education level: Not on file Occupational History ??? Occupation: Disabled Tobacco Use ??? Smoking status: Current Every Day Smoker Packs/day: 0.20 Types: Cigarettes ??? Smokeless tobacco: Former User ??? Tobacco comment: 1-2 cigarette a day since 2018, he was a heavy smoker. Substance and Sexual Activity ??? Alcohol use: No Comment: in past month ??? Drug use: Yes Types: Marijuana Comment: daily 4-5 times a day. ??? Sexual activity: Yes Partners: Female Other Topics Concern ??? Not on file Social History Narrative Lives with and daughter at home in [place], [place]. He is disabled now. 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 Independent of his ADLs He does some back yard work, He walks a few time a week outside. His mother in 2011. Social Determinants of Health Financial Resource Strain: ??? Difficulty of Paying Living Expenses: Not on file Food Insecurity: ??? Worried About Running Out of Food in the Last Year: Not on file ??? Ran Out of Food in the Last Year: Not on file Transportation Needs: ??? Lack of Transportation (Medical): Not on file ??? Lack of Transportation (Non-Medical): Not on file Physical Activity: ??? Days of Exercise per Week: Not on file ??? Minutes of Exercise per Session: Not on file Housing Stability: ??? Unable to Pay for Housing in the Last Year: Not on file ??? Number of Places Lived in the Last Year: Not on file ??? Unstable Housing in the Last Year: Not on file Allergies: Allergies Allergen Reactions ??? Thallium-201 Severe cardiac event ??? Lisinopril Other (See Comments) cough ??? Paper Tape [Adhesive Tape] Rash Meds ??? heparin (porcine) ??? sodium chloride 0.9 % (flush) 5 mL Intravenous BID ??? [START ON 06/09/2021] clopidogreL 75 mg Oral Daily ??? [START ON 06/09/2021] atorvastatin 80 mg Oral QPM ??? piperacillin-tazobactam 4.5 g Intravenous Q8H ??? vancomycin 1,750 mg Intravenous Q12H ??? [START ON 06/09/2021] aspirin 81 mg Oral Daily ??? buPROPion SR 150 mg Oral BID ??? DULoxetine DR 60 mg Oral BID ??? gabapentin 300 mg Oral TID ??? [START ON 06/09/2021] isosorbide mononitrate CR 30 mg Oral QAM ??? [START ON 06/09/2021] losartan 12.5 mg Oral Daily ??? [START ON 06/09/2021] metoprolol succinate XL 100 mg Oral Daily ??? pantoprazole EC 40 mg Oral BID ??? pramipexole 0.5 mg Oral Nightly ??? topiramate 50 mg Oral Nightly sodium chloride 0.9 % (flush), lidocaine, nitroGLYcerin, heparin (porcine) AND heparin (porcine) infusion ??? heparin (porcine) infusion Objective: Vitals Last value Range last 24 hrs Temperature Temp: 37.1 ??C (98.8 ??F) Temp: [37.1 ??C (98.8 ??F)] Heart Rate Heart Rate: 72 Heart Rate: [72] Blood Pressure BP: 116/76 BP: (116)/(76) Art Line BP BP (Arterial Line): -- MAP (NBP): [85 mmHg] Respiratory Rate Resp: 16 Resp: [16] SpO2 SpO2: 96 % SpO2: [96 %] Oxygen Delivery Oxygen Therapy O2 Device: None (Room air) No intake or output data in the 24 hours ending 06/08/212055 Patient Vitals for the past 168 hrs: Weight 06/08/211915 114.8 kg (253 lb 1.4 oz) Admit wt: 114.8 kg Physical Exam: Gen: Pleasant and cooperative, NAD. HEENT: anicteric, EOMI intact, CV: Regular rhythm, normal rate, no murmurs/rubs/gallops Resp: CTAB, no crackles/wheezes/ronchi, normal work of breathing Abd: normal bowel sounds, soft, non-tender to palpation, no rebound or guarding Ext: 2+ distal pulses, no pedal edema, + extensive erythema with induration and warmth over the R groin, no fluid could be drained or expressed Neuro: no focal motor deficits noted, CN II-XII grossly intact, moves all extremities spontaneously, decreased sensation over LLE Psych: cooperative, no abnormal behavior observed Skin: + extensive erythema with induration and warmth over the R groin, no fluid could be drained or expressed Lines/Drains/Airways Lines: Labs: Recent Labs 06/08/211930 WBC 8.1 HGB 13.5* HCT 39.4* PLATELET 219 MCV 84.7 Recent Labs 06/08/211930 NA 133* CL 100 CO2 22 K 4.0 CALCIUM 9.3 BUN 12 CREATININE 0.73* LFTs No results for input(s): PROT, ALBUMIN, AST, ALT, ALKPHOS, BILITOT, BILIDIR in the last 168 hours. Coags No results for input(s): INR, PT, PTT, FIBRINOGEN, DDIMER in the last 168 hours. Invalid input(s): THROMBIN TIME Cardiac Enzymes Recent Labs 06/08/211930 TROPONINT <0.01 Endocrine No results for input(s): TSH, CORTISOL in the last 7068 hours. Invalid input(s): [id number] No results for input(s): POCGLU in the last 168 hours. Heme No results for input(s): LDH, HAPTOGLOBIN, URICACID in the last 168 hours. ABG (Arterial Blood Gas) No results found for: PHART, PO2ART, FFE0LVC, GZG0WAM Microbiology: Microbiology Results (Last 30 days) No results found for the last 720 hours. Imaging: No results found for this visit on 06/08/21. Medications Scheduled Meds: ??? heparin (porcine) ??? sodium chloride 0.9 % (flush) 5 mL Intravenous BID ??? [START ON 06/09/2021] clopidogreL 75 mg Oral Daily ??? [START ON 06/09/2021] atorvastatin 80 mg Oral QPM ??? piperacillin-tazobactam 4.5 g Intravenous Q8H ??? vancomycin 1,750 mg Intravenous Q12H ??? [START ON 06/09/2021] aspirin 81 mg Oral Daily ??? buPROPion SR 150 mg Oral BID ??? DULoxetine DR 60 mg Oral BID ??? gabapentin 300 mg Oral TID ??? [START ON 06/09/2021] isosorbide mononitrate CR 30 mg Oral QAM ??? [START ON 06/09/2021] losartan 12.5 mg Oral Daily ??? [START ON 06/09/2021] metoprolol succinate XL 100 mg Oral Daily ??? pantoprazole EC 40 mg Oral BID ??? pramipexole 0.5 mg Oral Nightly ??? topiramate 50 mg Oral Nightly Continuous Infusions: ??? heparin (porcine) infusion PRN Meds:.sodium chloride 0.9 % (flush), lidocaine, nitroGLYcerin, heparin (porcine) AND heparin (porcine) infusion Recent diagnostics: [facility] (2019): Left Main The left main was normal, free of disease. Left Anterior Descending There was a 20% long segmental stenosis of the proximal segment of the left anterior descending artery (LAD). The LAD was large. The mid segment of the LAD had a single discrete 40% stenosis. The previously placed stent is patent. There was a 70% single discrete stenosis of the ostial segment of the first diagonal branch (Diagonal 1) of the LAD. The Diagonal 1 was small. Left Circumflex There were multiple discrete 20% stenoses of the proximal segment of the left circumflex artery (LCX). The LCX was large. The mid segment of the LCX had mild diffuse (<=25% stenosis) disease. There was mild diffuse (<=25% stenosis) disease of the entire vessel segment of the first left posterolateral branch (LPL1) of the LCX. The LPL1 was moderate in size. Right Coronary Artery There was mild diffuse (<=25% stenosis) disease of the entire vessel segment of the right coronary artery (RCA). The RCA was moderate in size. The proximal segment of the RCA had a long segmental 50% stenosis. There were multiple discrete 40% aneurysmal stenoses of the proximal segment of the right posterior descending branch (RPDA) of the RCA. The RPDA was moderate in size. ECHO (2018): 1. Mild concentric left ventricular hypertrophy is observed. There is normal global left ventricular systolic function. Ejection fraction is estimated to be 65%. There are no left ventricular segmental wall motion abnormalities. 2. The right ventricle is normal in size. Right ventricular global systolic function is normal. 3. There is no hemodynamically significant valve disease. Assessment & Plan: Romeo Coelho is a 56 y.o. male w/ PMH of CAD, s/p multiple PCIs, mLAD and pOM1 in 2011, mLAD in 2012, RCA in 2017. LHC with 40% mid LAD stenosis and 45% stenosis of the ostial segment of RPDA of RCA. Presented with typical worsening chest pain and transferred to our hospital for UA. He also has R groin cellulitis and was started on IV abx. # Unstable angina, EKG with no ST elevation, troponin negative. DANIEL score of 4 - Continue dual antiplatelet therapy - Continue beta agatha, ACEi, and high intensity statin - Obtain Echo - Serial cardiac enzymes - crystal slicer - Cardiac cath in a.m. - Check Lipid panel - A1c at the other facility of 9.4 # Right groin abscess with spontaneous drain, with cellulitis, no drainable collection CT scan at OSH -Continue vancomycin and Zosyn -Follow-up blood cultures obtained at the other facility -If no improvement will reconsult general surgery/urology, patient evaluated by surgery other facility -Repeat blood cultures # Elevated d-dimer, his presentation is atypical for PE, currently on anticoagulation regardless. His elevated troponin could be related to his infection. No hypoxia or tachycardia #Diabetes mellitus, [id number]-[id number], poor control with A1c of 9.4 -Diabetic diet -Start SSI -Consider SGLT2 inh upon discharge #HTN, within acceptable range. 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 #Restless leg syndrome, on pramipexole #Hx of depression, on Cymbalta #Poor oral hygiene, this can be another source of infection. He will need OP f/u with a dentist #Routine Diet: Daily Healthy Menu Choices/Cardiac diet ([facility]-Diet) 75/75/90 CHO counting level 3 DVT Prophylaxis: already on heparin drip Code Status: Attempt Cardiopulmonary Resuscitation - Inpatient Dispo: Pending clinical course Isaiah Hoyos MD Pager #[phone] 06/08/21 8:56 PM documented in this encounter Miscellaneous Notes * Plan of Care - Coni Lew PA - 06/10/2021 5:27 PM EDT Post Cardiac Cath Note S: Patient reports no chest pain or shortness of breath. Patient reports no back pain or right wrist pain. O: Right radial access site is clean, dry, intact without hematoma or bleeding. TR band has been removed. CMS intact. Last value Range last 12 hrs Temperature Temp: 37.3 ??C (99.1 ??F) Temp: [36.7 ??C (98.1 ??F)-37.3 ??C (99.1 ??F)] Heart Rate Heart Rate: 66 Heart Rate: [63-69] Blood Pressure BP: 110/71 BP: (102-134)/(65-81) Respiratory Rate Resp: 15 Resp: [12-16] SpO2 SpO2: 95 % SpO2: [93 %-96 %] A/P. Post cardiac cath without complications. Coni Lew PA-C Pager #[phone] 06/10/2021 * Initial Assessments - Ruthie Macias RN - 06/10/2021 3:39 PM EDT Office of Care Management Initial Assessment Ruthie Macias RN reviewed record and discussed patient with Care Team. Source of Information: Team, bedside nurse, medical record, and Patient Introduced self/reviewed role; services accepted. Reason for Hospitalization: unstable angina Last COVID test: Lab Results Component Value Date [id number] Not Detected 06/09/2021 Past medical History: Past Medical History: Diagnosis Date ??? Allergy ??? CAD (coronary artery disease), non-obstructive 05/31/2012 ??? Depression ??? DM (diabetes mellitus) 05/31/2012 ??? Dyslipidemia 05/31/2012 ??? GERD (gastroesophageal reflux disease) 05/31/2012 ??? HTN (hypertension) 05/31/2012 ??? Hx-TIA (transient ischemic attack) 06/03/2012 ??? Smoker 05/31/2012 Hospitalizations Within the Past 30 Days: no previous admission in last 30 days Current Decision-Making Capacity: Self Advance Care Planning: Attempt Cardiopulmonary Resuscitation - Inpatient <no information> -Advanced Directive: No, need to discuss (pt provided with written information on [place] ADs) If AD's have not been completed pts Dasia would be surrogate decision maker per [place] surrogatedecision making law. (Only good for 180 days) Any patient receiving care at [facility] must abide by [place] law. The hierarchy for surrogate decision making is: (a) Patient???s spouse, or civil union partner or common law spouse unless there is a divorce proceeding, separation agreement, or restraining order limiting that person???s relationship with the patient. (b) Any adult son or daughter of the patient. (c) Either parent of the patient. (d) Any adult brother or sister of the patient. (e) Any adult grandchild of the patient. (f) Any grandparent of the patient. (g) Any adult aunt, uncle, niece, or nephew of the patient. (h) A close friend of the patient. (i) The agent with financial power of insurance attorney or a conservator appointed in accordance with [place] 464-A. (j) The guardian of the patient???s estate. Current Coping/Education/Information Needs: Coping well with hospital stay and feels updated on issues and plan. Current Functional Ability: Independent Functional Status Prior to Admission: Independent Home Environment: Others in the home: spouse. Current Living Arrangements: home/apartment/condo. Accessibility Concerns:one floor home. Current DME: cane - straight Home Address confirmed as: [address] [place] [id number] Social & Family Supports: All names listed below confirmed with patient as current and correct Extended Emergency Contact Information Primary Emergency Contact: Dasia Coelho Address: [address] [place] [id number] [place] [address] of [facility] Mobile Relation: Spouse Current Care Provided by: self Provides Primary Care For: no one Caregiver if needed: spouse Quality of Family relationships: helpful, involved, supportive Community Resources being provided currently: none Behavioral Health History: pt denies any emotional or mental health concerns Substance Use/Abuse confirmed: Social History Tobacco Use Smoking Status Current Every Day Smoker ??? Packs/day: 0.20 ??? Types: Cigarettes Smokeless Tobacco Former User Tobacco Comment 1-2 cigarette a day since 2018, he was a heavy smoker. 0 No problems reported 1-2 Low level 3-5 Moderate level 6-8 Substantial level 9- 10 Severe level 0 to 7 points: Low risk 8 to 15 points: Medium risk 16 to 19 points: High risk 20 to 40 points: Addiction likely Other Pertinent/Service Specific Information: none noted Health/Prescription Coverage: Primary Insurance: MEDICARE Payor: MEDICARE / Plan: MEDICARE PART A & B / Product Type: *No Product type* / Secondary Insurance: MEDICAID [place] Prescription Coverage: Yes Preferred Pharmacy: [id number] - [facility], [place] - [address] [facility] [address] [place] [id number] [place] Status: Patient is a : No Primary Care Provider: Coni Lim MD [phone] Patient/Caregiver Goals of Treatment: dc to home Potential Needs for Transition of Care: n/a Agency Referrals: Not Applicable Transportation: rides, unreliable from others Transportation Anticipated: other (see comments), health plan transportation Concerns to be Addressed: discharge planning Assessment: Patient is admitted to Cardiology NP2 service for unstable angina. Pt lives in own homewith his , states that he is indep with all at baseline, ADLs, IADLd, ambulation, driving. He drove his car to [facility] and then required a BLS to transport here to [facility]. He will require assistance in finding A ride to home when he is dced. Pt has supports in place to accessthe necessary care and or follow up after dishcharge and there are no RN CM or GREEN HIDE INSPECTOR needs that are identified at this time Plan: dc to home A member of the Care Management team will continue to monitor progress, follow for continuity of care and assist with transition of care planning. Ruthie Macias RN CM Ext [phone] Pager [phone] * Consult Note - Elena Zaragoza APRN - 06/10/2021 12:07 PM EDT Diabetes Management Team Inpatient Consult Date of Consultation: 06/10/2021 Consult Requested by: Cardiology Reason for Consultation: Romeo Coelho is a 56 y.o. 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 Diabetes History: Romeo Coelho has had diabetes for about 8 years. He was diagnosed during routine blood testing by his PCP. Denies having any symptoms at time of diagnosis. He takes metformin only, hasn't discussed additional medications with PCP previously as historically A1c has been 6-7. Lives in [facility] with Dasia. States the last few months have been stressful between isolation from the pandemic and financial hardships. He feels it may be possible that elevation in A1cmay be due to stress. He has only been on insulin in the hospital setting previously, never on insulin at home. Current outpatient diabetes regimen: Diabetes Provider: PCP Medications: Metformin 1000 mg BID Monitoring is done a few times a month, 135-140 in the morning upon waking and 120 prior to lunch. Most recent HA1c was done on 06/08/21 and was 9.7% Typical diet is: 1 meals and 1-2 snacks a day Breakfast- skips Lunch- skips Supper- large meal with meat, vegetable, carbohydrate (pasta, potatoes, rice) Dessert - ice cream Drinks - water, diet pepsi Typical exercise regimen is none, active mowing lawn/chopping wood and other outdoor chores Trouble with hypoglycemia none Current Weight 115.8 kg, BMI 36.6 Diabetes Complications Status: Eyes: None Kidneys: None, eGFR >100, Cr = 0.79 Feet: None Sensory: None, R upper and lower PN r/t CVA in 2002 Autonomic: None Cardiovascular : Hx CVA Current Hospital Diabetes Care: Medications: Lispro Moderate correction scale q 4 hrs, meal associated Lispro 1:10 ICR Monitoring: Fingerstick q 4 hrs Diet: CHO Level 2 ROS: deferred PMH Past Medical History: Diagnosis Date ??? Allergy ??? CAD (coronary artery disease), non-obstructive 05/31/2012 ??? Depression ??? DM (diabetes mellitus) 05/31/2012 ??? Dyslipidemia 05/31/2012 ??? GERD (gastroesophageal reflux disease) 05/31/2012 ??? HTN (hypertension) 05/31/2012 ??? Hx-TIA (transient ischemic attack) 06/03/2012 ??? Smoker 05/31/2012 Current Hospital Medications: ??? [OCT Hold] ranolazine ER 500 mg Oral BID ??? [OCT Hold] rosuvastatin 40 mg Oral QPM ??? [OCT Hold] Vancomycin Level - MAR Order Reminder NOT APPLICABLE Once ??? [OCT Hold] insulin lispro 0-8 Units Subcutaneous TID WC ??? [OCT Hold] vancomycin 1,750 mg Intravenous Q12H ??? [MAR Hold] insulin lispro 1-6 Units Subcutaneous Q4H SONIA ??? [MAR Hold] sodium chloride 0.9 % (flush) 5 mL Intravenous BID ??? [MAR Hold] clopidogreL 75 mg Oral Daily ??? [MAR Hold] piperacillin-tazobactam 4.5 g Intravenous Q8H ??? [MAR Hold] aspirin 81 mg Oral Daily ??? [MAR Hold] buPROPion SR 150 mg Oral BID ??? [MAR Hold] DULoxetine DR 60 mg Oral BID ??? [MAR Hold] gabapentin 300 mg Oral TID ??? [MAR Hold] isosorbide mononitrate CR 30 mg Oral QAM ??? [MAR Hold] losartan 12.5 mg Oral Daily ??? [MAR Hold] metoprolol succinate XL 100 mg Oral Daily ??? [MAR Hold] pantoprazole EC 40 mg Oral BID ??? [MAR Hold] pramipexole 0.5 mg Oral Nightly ??? [MAR Hold] topiramate 50 mg Oral Nightly Infusions: PRN: midazolam (PF), atropine, fentaNYL (PF), [MAR Hold] sodium chloride 0.9 % (flush), [MAR Hold] lidocaine, [MAR Hold] nitroGLYcerin, [MAR Hold] glucose 40% oral geL OR [MAR Hold] dextrose 10% OR [MAR Hold] glucagon Allergy: Allergies Allergen Reactions ??? Thallium-201 Severe cardiac event ??? Lisinopril Other (See Comments) cough ??? Paper Tape [Adhesive Tape] Rash Social history: Social History Tobacco Use ??? Smoking status: Current Every Day Smoker Packs/day: 0.20 Types: Cigarettes ??? Smokeless tobacco: Former User ??? Tobacco comment: 1-2 cigarette a day since 2018, he was a heavy smoker. Substance Use Topics ??? Alcohol use: No Comment: in past month ??? Drug use: Yes Types: Marijuana Comment: daily 4-5 times a day. Family history: Family History Problem Relation Age of Onset ??? Myocardial Infarction Father 46 [place], CABG ??? Heart Disease Father ??? Diabetes Mother ??? Hypertension Mother ??? Hyperlipidemia Mother ??? Heart Disease Mother ??? Heart Disease Brother ??? Heart Disease Brother ??? Diabetes Brother ??? Diabetes Brother ??? Hypertension Brother ??? Hypertension Brother ??? Hyperlipidemia Brother ??? Hyperlipidemia Brother ??? Strabismus Neg Hx Vitals Last value Range last 24 hrs Temperature Temp: 36.6 ??C (97.9 ??F) Temp: [36.5 ??C (97.7 ??F)-36.7 ??C (98.1 ??F)] Heart Rate Heart Rate: 66 Heart Rate: [63-70] Blood Pressure BP: 134/81 BP: (102-134)/(50-81) Respiratory Rate Resp: 12 Resp: [12-18] SpO2 SpO2: 95 % SpO2: [94 %-96 %] Physical Exam: Gen: NAD, talking in clear sentences. Seated at edge of bed comfortably HEENT: no LAD, oral mucus membranes moist no obvious inflammation Neuro: Moving all extremities. Grossly non-focal Labs: Lab Results Component Value Date BUN 9 (L) 06/10/2021 CREATININE 0.79 (L) 06/10/2021 GLUCOSE 244 (H) 2021 GLUCFASTING 195 (H) 06/10/2021 ESTGFR 102 06/10/2021 Lab Results Component Value Date HA1C 6.8 (H) 03/15/2019 No results found for: MICROALBUR Lab Results Component Value Date CHLPL 207 06/09/2021 Lab Results Component Value Date HDL 29 06/09/2021 Lab Results Component Value Date LDLCHOL 131 06/09/2021 Lab Results Component Value Date TRIG 235 06/09/2021 Lab Results Component Value Date CHOLHDL 7.1 06/09/2021 Assessment: Patient is a 56 y.o. years old male with PMH significant for DM (Last A1C of 9.7%) who was admittedon 2021 for unstable angina. Diabetes suboptimally controlled and currently complicated by financial and emotional stress. Currently with variability of blood glucose levels while hospitalized requiring adjustment of insulin regimen and DM medications. Patient arrived to with a BG of 346. Over the course of yesterday he was given a total of 28 units of Lispro meal coverage and correction. Estimate that half of this should be basal requirement. Will add basal insulin 15 units this evening and continue 1:10 ICR which appears to be covering mealsthus far. Will change to more sensitive correction scale, give 1 unit insulin for every 30 g/DL over 150. Plan: 1. Lantus 15 units qd 2. Lispro custom correction scale for BG>140, CF 20 3. Meal-associated Lispro 0-8 units tid ac (or 1unit: 10 gm carb ratio for each meal) senior living diabetes care: Medications - Outpatient treatment regimen recommendations pending based on the hospital course. Monitoring - continue BG tid ac & hs Diet - low fat/low carb diet Exercise - weight-bearing exercise 30 min/day, as tolerated Thank you for allowing us to provide care for your patient Elena Nik [facility] Pager [phone] minutes of this 80 minute visit was spent with the patient in counseling on diabetes and treatment plan, reviewing all glucose and insulin data as well as relevant laboratory results with the patient, and coordination of care on the inpatient unit * Brief Op Note - Jose Trimble MD - 06/10/2021 11:37 AM EDT Brief Operative Note Patient Name: Romeo Coelho : [id number] MR#: [id number] Case Date: 06/10/2021 Construction Economist: * Jose Trimble MD - Primary * Syed Solorio MD - Fellow Preoperative diagnosis: nstemi Postoperative diagnosis:NSTEMI with stable coronary anatomy Preliminary Cardiac Catheterization Procedure Note: Procedure(s) performed: Coronary Angiography, Left Heart Cath Baseline Frailty Assessment: Definitions from [place] Study of Health and Aging Clinical Frailty Scale: 3: MANAGING WELL: well-controlled medical problems, no exercise more than routine walking A time-out was conducted prior to the start of the procedure to verify the correct patient and procedure, procedure location, and all relevant critical information. Access: Right radial artery: 6 Fr Preliminary findings: Coronary Angiography: Anatomically normal right dominant circulation LMCA: Minimal luminal irregularities noted LAD: Mild diffuse disease. Previously placed stent is widely patent LCx: Mild diffuse disease. Previously placed stent is widely patent RCA: Mild diffuse disease. Previously placed stents are widely patent In comparison to angiography performed on there is no significant interval change LVEDP 25 mmHg Contrast 38 ml Hemostasis: Right radial sheath was removed at case completion with hemostasis obtained with mechanical (TR Band) compression The patient tolerated the procedure well and was transferred from the cardiac catheterization lab to the CRU in stable condition without apparent complications. Full report to follow. JOSE TRIMBLE MD manager of patient Pager [phone] * Plan of Care - Fabienne Morelos RN - 06/09/2021 2:57 PM EDT OUTCOME EVALUATION NOTE: OUTCOME SUMMARY: A/O x4. VSS on RA. NSR on tele. Heparin gtt maintained per protocol.IV zosyn and vanc given per protocol. (see MAR). BG elevated, MD notified, insulin scale adjusted. PLAN MOVING FORWARD: BC results quality assurance qa lab technician D/c planning INDIVIDUALIZED FALL PREVENTION INTERVENTIONS: Patient-specific fall risk factors per assessment: [current deficits]: unfamiliar environment, IV, tele Assistance [level of assistance required for transfers and ambulation]: SBA Supervision [direct monitoring required during toileting and ADLs]: Eyes on Surveillance [continuous indirect monitoring]: tele, purposeful hourly rounding, room near unit station, call perez in reach Patient-specific fall prevention interventions for sensory deficits provided, if applicable: CPG GOAL OUTCOME EVALUATION: * Plan of Care - Arturo Morris RN - 06/09/2021 5:12 AM EDT OUTCOME EVALUATION NOTE: OUTCOME SUMMARY: Uneventful night, slept between care. Denied any pain. Baseline SOB reported, remains on room air overnight. Barnett very nauseous after he went to the bathroom, Zofran given with good effect. PLAN MOVING FORWARD: NPO for potential heart cath Abx * Plan of Care - Isaiah Hoyos MD - 2021 9:14 PM EDT Images from the original note were not included. Cardiac cath Pre Procedure Note The indications, expected benefits and potential risks of heart catheterization were reviewed in detail with the patient. The potential for , heart attack, stroke, kidney failure, hemorrhage, allergic reaction, vascular complications and infection were reviewed in detail. The possibility of stenting and other percutaneous intervention with associated risk was reviewed. The possible need for emergent coronary artery bypass surgery was reviewed. After a discussion about the above, and havinganswered all questions posed, the patient was provided with a consent which was reviewed and signed. ASA: 2: Patient with mild systemic disease Mallampati: III: only the base of the uvula can be seen Sedation Plan: moderate (conscious sedation) Assessment and Plan: Proceed with cardiac cath today, see progress note from today for further details. Isaiah Hoyos MD 2021 Pager [phone] documented in this encounter Plan of Treatment Not on file documented as of this encounter Procedures Procedure Name Priority Date/Time Associated Diagnosis Comments POCT GLUCOSE Routine 06/10/2021 4:20 PM EDT HC TROPONIN T STAT 06/10/2021 1:07 PM EDT POCT GLUCOSE Routine 06/10/2021 11:58 AM EDT CARDIAC CATHETERIZATION Routine 06/10/20 11:45 AM EDT POCT GLUCOSE Routine 06/10/2021 7:59 AM EDT HC UNFRACTIONATED HEPARIN (HEP UFH) STAT 06/10/2021 3:44 AM EDT POCT GLUCOSE Routine 06/10/2021 3:44 AM EDT BMP W/FASTING GLUCOSE Routine 06/10/2021 3:44 AM EDT HEMOGRAM Routine 06/10/2021 3:44 AM EDT DIFFERENTIAL, AUTOMATED Routine 06/10/20 3:44 AM EDT GREEN TUBE HOLD Routine 06/10/2021 3:44 AM EDT HC CBC,PLT & AUTO DIFF Routine 3:44 AM EDT TROPONIN Routine 06/10/2021 3:44 AM EDT POCT GLUCOSE Routine 06/09/2021 11:57 PM EDT POCT GLUCOSE Routine 06/09/2021 8:06 PM EDT HC TROPONIN T STAT 06/09/2021 5:47 PM EDT POCT GLUCOSE Routine 06/09/2021 4:40 PM EDT POCT GLUCOSE Routine 06/09/2021 3:02 PM EDT ECHO COMPLETE W CONTRAST Routine 06/09/2021 1:52 PM EDT Chest pain, unspecified type POCT GLUCOSE Routine 06/09/2021 11:49 AM EDT HC UNFRACTIONATED HEPARIN (HEP UFH) Timed 06/09/2021 11:30 AM EDT HC VENIPUNCTURE STAT 06/09/2021 11:30 AM EDT POCT GLUCOSE Routine 06/09/2021 8:03 AM EDT HC UNFRACTIONATED HEPARIN (HEP UFH) STAT 06/09/2021 5:50 AM EDT HEMOGRAM Routine 06/09/2021 5:50 AM EDT DIFFERENTIAL, AUTOMATED Routine 06/09/20 5:50 AM EDT HC BLOOD CULTURE- STAT 06/09/2021 5:5 0 AM EDT HC CBC,PLT & AUTO DIFF Routine 5:50 AM EDT HC TROPONIN T STAT 06/09/2021 5:50 AM EDT LIPID PANEL (REFLEX DIRECT LDL) Routine 06/09/2021 5:50 AM EDT RAPID COVID-19 PCR ([facility]) Routine 06/09/2021 5:45 AM EDT POCT GLUCOSE Routine 06/09/2021 4:20 AM EDT POCT GLUCOSE Routine 06/09/2021 12:35 AM EDT HC UNFRACTIONATED HEPARIN (HEP UFH) STAT 2021 10:41 PM EDT EKG 12-LEAD STAT 2021 8:46 PM EDT Chest pain, unspecified type HC BLOOD CULTURE- STAT 2021 8:2 6 PM EDT HEMOGRAM STAT 2021 7:31 PM EDT DIFFERENTIAL, AUTOMATED STAT 06/08/20 7:31 PM EDT HC CBC,PLT & AUTO DIFF STAT 7:31 PM EDT HC TROPONIN T STAT 2021 7:31 PM EDT BASIC METABOLIC PANEL STAT 2021 7:31 PM EDT documented in this encounter Results * POCT Glucose (06/10/2021 4:20 PM EDT) [facility] Signature Glucose, POC 177 65 - 199 mg/dL [facility] Comment: Supplemental ranges: <140 mg/dL before meals <180 mg/dL all other times of the day Blood 06/10/2021 4:20 PM EDT 06/10/2021 4:20 PM EDT Supa Alegria MD POINT OF CARE TEST O RDERABLES [facility] [place] [address] * Troponin (06/10/2021 1:07 PM EDT) Troponin-T <0.01 0.00 - 0.00 ng/mL [facility] Comment: The 99th percentile for Troponin T is less than 0.01 ng/mL, any detectable cTnT concentration using this assay should be considered elevated. According to the third universal definition of myocardial infarction the following criteria with a clinical presentation consistent with acute myocardial ischemia meets the diagnosis for a myocardial infarction (UT). Detection of a rise and/or fall of cTnT, with at least one value greater than the 99th percentile (> or = 0.01) and with at least one of the following ?? Symptoms of ischemia ?? New or presumed new significant ZA-gjzrpsa-N wave (ST-T) changes or new left bundle branch block (LBBB) ?? Development of pathologic Q waves in the ECG ?? Imaging evidence of new loss of viable myocardium or new regional wall motion abnormality ?? Identification of an intracoronary thrombus by angiography or autopsy Samples for cTnT testing should be obtained serially upon first assessment and again 3 to 6 hours later. If the clinical suspicion is high and previous samples have been negative an additional sample may be indicated. Reference: Third [place] Definition of Myocardial Infarction. Journal of the [employer] College of [employer]iology 2012;60:1581-98 Blood 06/10/2021 1:07 PM EDT 06/10/2021 1:18 PM EDT Narrative Resulting Agency Comment Spec In Lab Isaiah Hoyos MD CHEMISTRY ORDERABLE S [facility] [place] [place] [address] * POCT Glucose (06/10/2021 11:58 AM EDT) Glucose, POC 175 65 - 199 mg/dL [facility] Comment: Supplemental ranges: <140 mg/dL before meals <180 mg/dL all other times of the day Blood 06/10/2021 11:5 8 AM EDT 06/10/2021 11:58 AM EDT Supa Alegria MD POINT OF CARE TEST O RDERABLES [facility] [place] [address] * CARDIAC CATHETERIZATION (06/10/2021 11:45 AM EDT) Anatomical Region Laterality Modality Other Narrative 06/10/2021 12:54 PM EDT ?[facility] ? Cardiac Catheterization/Intervention Report ? Patient Name: Coelho, Romeo A. ? Procedure Date: 06/10/2021 ? A #: [id number] ? Primary Physician: Jose Trimble V ? Case #: [id number] ? File Name: [id number] ? Catheterization Order Number: [id number] ? [facility] ?Room Service [facility] ? Final Report [place], [place] ? Patient Name: ? Romeo Coelho ? ID#: ?[id number] ? : ?1965 ? Procedure Date: ? June 10, 2021 ? Case #: ? [id number] ? Room: ? 5 ? Case Physician: ? Jose Trimble MSkyler. ? Start: ?11:15 ?Fellow: ? Syed Solorio M.D. ?Admission: ??2021 ? Referring Physician: ??Lazaro Coello ? Procedures: ?* Coronary Angiography ?* Left Heart Catheterization ?* Vascular Ultrasound ? History ?Romeo Coelho is a 56 year old man. He has hypertension. The patient's ?smoking status is Current with Current - Every Day frequency, using ?cigarettes. Cigarette use is Light (<10/day). He has hypercholesterolemia ?managed with lipid therapy. The patient has diabetes managed with oral ?medication. He has a prior history of coronary artery disease. The ?patient had a remote coronary intervention procedure. 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 Prior to the initiation of this procedure, the patient was ?designated as ASA Class II. The [facility] clinical frailty scale is 2: Well. ? Diagnostic Tests: ?Prior Coronary Angiography: ? Prior coronary angiography was performed on 03/14/2019 and showed ? non-obstructive CAD. LV ejection fraction within 6 months is 55%. ?Electrocardiography: ? EKG was assessed by ECG. EKG was Normal. ?Medications Prior to Procedure: ? Aspirin, Angiotensin II Receptor Agatha, Beta Agatha, Long Acting ? Nitrate and Statin. ? Indications for Diagnostic Cath: ?The priority of the diagnostic procedure was Urgent. The indication for ?the microbiology lab assistant visit is worsening angina. Chest pain symptom assessment ?was: Non-anginal Chest Pain. ? Technique: ?A 6 SLFr sheath was inserted in the right radial artery utilizing the ?Seldinger technique. The left coronary artery was injected utilizing a ?5Fr JL 3.5 catheter. A 5Fr JR 4 catheter was used to inject the right ?coronary artery. Left ventricular pressure was performed utilizing a 5Fr ?JR 4 catheter. 4,000 units of heparin were administered. A total of 100cc ?of Omnipaque were opened, 38cc of Omnipaque were administered and 62cc of ?Omnipaque were wasted. Radiation: Fluoro time was 4.2 minutes, dose area ?product was 54,851 mGYcm2 and air kerma was 1,024 mGY. See the case log ?for additional details. ?The patient received the following medications prior to and during the ?procedure: ? Unfractionated Heparin and Clopidogrel. ? Hemodynamics: ?Left Heart Pressures ? Resting: ? Syst Diast ? EDP ?a ?v ? m ?Ao 96 ?63 ?76 ?LV 108 ? 25 ?Comments: ??LV--AO Pullback: AOp: 99/66 (81) ?LVp: 107/9, 25. ? Coronary Angiography: ?Dominance: Right ?Left Main ? There was a 15% single discrete stenosis of the distal segment of ? the left main artery. ??The left main was large. ?Left Anterior Descending ? There was mild diffuse (<=25% stenosis) disease of the entire vessel ? segment of the left anterior descending artery (LAD). ??The LAD was ? large. ??The previously placed stent is patent. ?Left Circumflex ? There was mild diffuse (<=25% stenosis) disease of the entire vessel ? segment of the left circumflex artery (LCX). ??The LCX was large. ? The previously placed stent is patent. ?Right Coronary Artery ? There was mild diffuse (<=25% stenosis) disease of the entire vessel ? segment of the right coronary artery (RCA). ??The RCA was large. ??The ? previously placed stent is patent. ? Vascular Access: ?Vascular Access Management: ? Mechanical Compression of the right radial artery access site was ? performed. ? Conclusions: ?* Nonobstructive coronary artery disease ?* Elevated left ventricular end diastolic pressure ? Complications/Events: ?The patient had no complications during these procedures. ? Comments: ?In comparison to angiography performed on 22 Juyl 2019, there is no ?signficant interval change. ?The attending physician was present for the entire procedure. ?Dr. Jose Trimble M.D. was present during the moderate sedation ?intraservice time as documented by the sedation nurse. ??Case time = 00:24. ?Dr. Jose Trimble M.D. performed the coronary angiography, left heart ?catheterization and vascular ultrasound. ? Jose Trimble M.D. ? Electronically Signed by: Jose Trimble M.D. ? Report Finalized: 06/10/2021 ??12:48 ? Procedure Note Jose Trimble MD - 06/10/2021 [facility] Cardiac Catheterization/Intervention Report Patient Name: Romeo CoelhoNatalie Procedure Date: 06/10/2021 A #: [id number] Primary Physician: Jose Trimble V Case #: [id number] File Name: [id number] Catheterization Order Number: [id number] [facility] FinalReport [place], [place] Patient Name: Romeo Coelho ID#:[id number] :1965 Procedure Date: June 10, 2021 Case #: [id number] Room: 5 Case Physician: Jose Trimble M.D. Start: 11:15 Fellow: Syed Solorio M.D. Admission:2021 Referring Physician: Lazaro Coello Procedures: * Coronary Angiography * Left Heart Catheterization * Vascular Ultrasound History Romeo Coelho is a 56 year old man. He has hypertension. Thepatient's smoking status is Current with Current - Every Day frequency, using cigarettes. Cigarette use is Light (<10/day). He hashypercholesterolemia managed with lipid therapy. The patient has diabetes managed withoral medication. He has a prior history of coronary artery disease. The patient had a remote coronary intervention procedure. He also has a remote cerebral vascular accident and a history of transientischemic attacks. Prior to the initiation of this procedure, the patient was designated as ASA Class II. The [facility] clinical frailty scale is 2:Well. Diagnostic Tests: Prior Coronary Angiography: Prior coronary angiography was performed on 03/14/2019 andshowed non-obstructive CAD. LV ejection fraction within 6 months is55%. Electrocardiography: EKG was assessed by ECG. EKG was Normal. Medications Prior to Procedure: Aspirin, Angiotensin II Receptor Agatha, Beta Agatha, LongActing Nitrate and Statin. Indications for Diagnostic Cath: The priority of the diagnostic procedure was Urgent. The indicationfor the microbiology lab assistant visit is worsening angina. Chest pain symptomassessment was: Non-anginal Chest Pain. Technique: A 6 SLFr sheath was inserted in the right radial artery utilizingthe Seldinger technique. The left coronary artery was injected utilizinga 5Fr JL 3.5 catheter. A 5Fr JR 4 catheter was used to inject theright coronary artery. Left ventricular pressure was performed utilizing a5Fr JR 4 catheter. 4,000 units of heparin were administered. A total [id number] of Omnipaque were opened, 38cc of Omnipaque were administered [id number] of Omnipaque were wasted. Radiation: Fluoro time was 4.2 minutes, dosearea product was 54,851 mGYcm2 and air kerma was 1,024 mGY. See the caselog for additional details. The patient received the following medications prior to and duringthe procedure: Unfractionated Heparin and Clopidogrel. Hemodynamics: Left Heart Pressures Resting: Syst Diast EDP a v m Ao 96 63 76 LV 108 25 Comments: LV--AO Pullback: AOp: 99/66 (81) LVp: 107/9, 25. Coronary Angiography: Dominance: Right Left Main There was a 15% single discrete stenosis of the distal segmentof the left main artery. The left main was large. Left Anterior Descending There was mild diffuse (<=25% stenosis) disease of the entirevessel segment of the left anterior descending artery (LAD). The LADwas large. The previously placed stent is patent. Left Circumflex There was mild diffuse (<=25% stenosis) disease of the entirevessel segment of the left circumflex artery (LCX). The LCX waslarge. The previously placed stent is patent. Right Coronary Artery There was mild diffuse (<=25% stenosis) disease of the entirevessel segment of the right coronary artery (RCA). The RCA was large.The previously placed stent is patent. Vascular Access: Vascular Access Management: Mechanical Compression of the right radial artery access sitewas performed. Conclusions: * Nonobstructive coronary artery disease * Elevated left ventricular end diastolic pressure Complications/Events: The patient had no complications during these procedures. Comments: In comparison to angiography performed on 2018, there is no signficant interval change. The attending physician was present for the entire procedure. Dr. Jose Trimble M.D. was present during the moderate sedation intraservice time as documented by the sedation nurse. Case time =00:24. Dr. Jose Trimble M.D. performed the coronary angiography, leftheart catheterization and vascular ultrasound. Jose Trimble M.D. Electronically Signed by: Jose Trimble M.D. Report Finalized: 06/10/2021 12:48 Jose Damon MD CARDIAC CATH ORDERAB LES * POCT Glucose (06/10/2021 7:59 AM EDT) [facility] Glucose, POC 191 65 - 199 mg/dL [facility] Comment: Supplemental ranges: <140 mg/dL before meals <180 mg/dL all other times of the day Blood 06/10/2021 7:59 AM EDT 06/10/2021 7:59 AM EDT Supa Alegria MD POINT OF CARE TEST O RDERABLES [facility] [place] [address] * (ABNORMAL) BMP w/fasting Glucose (06/10/2021 3:44 AM EDT) Glucose Fasting 195(H) 65 - 99 mg/dL [facility] Comment: ?Fasting* Glucose Interpretive Criteria [...] of Diabetes Mellitus, Position Statement from the [place] Diabetes Association. ??Diabetes Care, Volume 33, Supplement 1, Aug 2009 Blood Urea Nitrogen 9(L) 10 - 20 mg/dL [facility] Creatinine 0.79(L) 0.80 - 1.50 mg/dL [facility] Sodium 134(L) 135 - 145 mmol/L [facility] Potassium 4.1 3.5 - 5.0 mmol/L [facility] Comment: Please note: ??Patients with WBC >100,000 may have falsely elevated Potassium levels. ??For accurate Potassium quantification in these patients send serum separator tube (gold top) for subsequent determinations. ??Contact the Clinical Chemistry Laboratory if there are any questions. Chloride 103 98 - 107 mmol/L [facility] Carbon Dioxide 18(L) 22 - 31 mmol/L [facility] Anion Gap 13 5 - 15 mmol/L [facility] Calcium 9.4 8.5 - 10.5 mg/dL [facility] Est Glomerular Filtration Rate 102 >=60 mL/min/1. 73 m?? [facility] Comment: This patient? s estimated [...] In Lab Coni GROVER CHEMISTRY ORDERABLE S [facility] [place] [address] * Troponin (06/10/2021 3:44 AM EDT) Troponin-T <0.01 0.00 - 0.00 ng/mL [facility] Comment: The 99th percentile for Troponin T is less than 0.01 ng/mL, any detectable cTnT concentration using this assay should be considered elevated. According to the third universal definition of myocardial infarction the following criteria with a clinical presentation consistent with acute myocardial ischemia meets the diagnosis for a myocardial infarction (UT). Detection of a rise and/or fall of cTnT, with at least one value greater than the 99th percentile (> or = 0.01) and with at least one of the following ?? Symptoms of ischemia ?? New or presumed new significant PX-dabasnp-Q wave (ST-T) changes or new left bundle branch block (LBBB) ?? Development of pathologic Q waves in the ECG ?? Imaging evidence of new loss of viable myocardium or new regional wall motion abnormality ?? Identification of an intracoronary thrombus by angiography or autopsy Samples for cTnT testing should be obtained serially upon first assessment and again 3 to 6 hours later. If the clinical suspicion is high and previous samples have been negative an additional sample may be indicated. Reference: Third [place] Definition of Myocardial Infarction. Journal of the [employer] College of [employer]iology 2012;60:1581-98 Blood Venous Draw / Unknown 06/10/2021 3:44 AM EDT 06/10/2021 4:06 AM EDT Narrative Resulting Agency Comment Spec In Lab Isaiah Hoyos MD CHEMISTRY ORDERABLE S Performing Organization Address [facility]/ZIP Co de Phone Number [facility] [place] [place] [address] * Green Tube HOLD (06/10/2021 3:44 AM EDT) Green Hold Sample in lab. [facility] Blood Venous Draw / Unknown 06/10/2021 3:44 AM EDT 06/10/2021 4:03 AM EDT Isaiah Hoyos MD CHEMISTRY ORDERABLE S Performing Organization Address [facility] Co de Phone Number [facility] [place] [address] * POCT Glucose (06/10/2021 3:44 AM EDT) Glucose, POC 191 65 - 199 mg/dL [facility] Comment: Supplemental ranges: <140 mg/dL before meals <180 mg/dL all other times of the day Blood 06/10/2021 3:44 AM EDT 06/10/2021 3:44 AM EDT Supa Alegria MD POINT OF CARE TEST O RDERABLES Performing Organization Address [facility] Co de Phone Number [facility] [place] [address] * Heparin (unfractionated) Level (06/10/2021 3:44 AM EDT) [facility] UF Heparin 0.38 IU/mL [facility] Comment: Guidelines for therapeutic unfractionated heparin levels are summarized below. Heparin (Anti-Xa) levels should be determined in a plasma sample that has been drawn 6 hours after a dose change i.e., steady-state has been reached. DRUG ?Dosing Schedule ? Target Peak Steady-State ?Heparin (Anti-Xa) Levels (Units/mL) Unfractionated ?Continuous infusion ?0.3-0.7 Heparin ?0.3-0.6 for some neurology indications Blood 06/10/2021 3:44 AM EDT 06/10/2021 4:03 AM EDT Narrative Resulting Agency Comment Spec In Lab Isaiah Hoyos MD HEMATOLOGY ORDERABL ES [facility] [place] [address] * (ABNORMAL) Differential, Automated (06/10/2021 3:44 AM EDT) [facility] Neutrophil % 55.0 % [facility] Neutrophil Absolute 4.98 1.70 - 6.10 x10(3)/mc L [facility] Lymph % 29.1 % [facility] Lymphocytes Abs 2.6 0.9 - 3.2 x10(3)/mc L [facility] Monocyte % 7.5 % [facility] Monocyte Abs 0.7 0.3 - 0.9 x10(3)/mc L [facility] Eos % 5.9 % [facility] Eosinophils Abs 0.5(H) 0.0 - 0.4 x10(3)/[facility] Basophil % 1.1 % [facility] Baso Absolute 0.1 0.0 - 0.1 x10(3)/[facility] Immature Gran % 1.40 % [facility] Comment: Immature granulocytes(IG's)percentage and absolute count will include metamyelocytes, myelocytes, and promyelocytes. Blood smears from CBCs yielding IG's will be scanned manually for concordance. If this scan disagrees with the automated IG or if promyelocytes are noted, a manual differential will be performed. Immature Gran Absolute 0.13(H) 0.00 - 0.04 x10(3)/[facility] Blood 06/10/2021 3:44 AM EDT 06/10/2021 4:03 AM EDT Narrative Resulting Agency Comment Spec In Lab Isaiah Hoyos MD HEMATOLOGY ORDERABL ES [facility] [place] [address] * Hemogram (06/10/2021 3:44 AM EDT) White Blood Cell 9.0 4.0 - 9.5 x10(3)/[facility] Red Blood Cell 4.97 4.58 - 5.54 x10(6)/[facility] Hemoglobin 14.2 13.7 - 16.5 g/dL [facility] Hematocrit 42.8 40.5 - 48.5 % [facility] Mean Cell Volume 86.1 82.9 - 93.1 fL [facility] Mean Cell Hemoglobin 28.6 27.5 - 32.1 pg [facility] Mean Cell Hemoglobin Concentration 33.2 32.0 - 35.7 g/dL [facility] Platelet 251 145 - 357 x10(3)/[facility] RDW Standard Deviation 40.5 36.0 - 45.0 [facility] RDW coefficient of variation 13.0 11.4 - 13.8 % [facility] Mean Platelet Volume 10.5 7.6 - 12.9 [facility] NRBC% auto 0.0 % [facility] NRBC Absolute 0.000 0.000 - 0.000 x10(3)/[facility] Blood 06/10/2021 3:44 AM EDT 06/10/2021 4:03 AM EDT Narrative Resulting Agency Comment Spec In Lab Isaiah Hoyos MD HEMATOLOGY ORDERABL ES Performing Organization Address [facility]/ZIP Co de Phone Number [facility] [place] [address] * POCT Glucose (06/09/2021 11:57 PM EDT) Glucose, POC 147 65 - 199 mg/dL [facility] Comment: Supplemental ranges: <140 mg/dL before meals <180 mg/dL all other times of the day Blood 06/09/2021 11:5 7 PM EDT 06/09/2021 11:57 PM EDT Supa Alegria MD POINT OF CARE TEST O RDERABLES Performing Organization Address [facility]/ZIP Co de Phone Number [facility] [place] [address] * POCT Glucose (06/09/2021 8:06 PM EDT) Glucose, POC 193 65 - 199 mg/dL [facility] Comment: Supplemental ranges: <140 mg/dL before meals <180 mg/dL all other times of the day Blood 06/09/2021 8:06 PM EDT 06/09/2021 8:06 PM EDT Supa Alegria MD POINT OF CARE TEST O RDERABLES [facility] [place] [address] * Troponin (06/09/2021 5:47 PM EDT) Troponin-T <0.01 0.00 - 0.00 ng/mL [facility] Comment: The 99th percentile for Troponin T is less than 0.01 ng/mL, any detectable cTnT concentration using this assay should be considered elevated. According to the third universal definition of myocardial infarction the following criteria with a clinical presentation consistent with acute myocardial ischemia meets the diagnosis for a myocardial infarction (UT). Detection of a rise and/or fall of cTnT, with at least one value greater than the 99th percentile (> or = 0.01) and with at least one of the following ?? Symptoms of ischemia ?? New or presumed new significant LV-helhefo-E wave (ST-T) changes or new left bundle branch block (LBBB) ?? Development of pathologic Q waves in the ECG ?? Imaging evidence of new loss of viable myocardium or new regional wall motion abnormality ?? Identification of an intracoronary thrombus by angiography or autopsy Samples for cTnT testing should be obtained serially upon first assessment and again 3 to 6 hours later. If the clinical suspicion is high and previous samples have been negative an additional sample may be indicated. Reference: Third [place] Definition of Myocardial Infarction. Journal of the [employer] College of [employer]iology 2012;60:1581-98 Blood 06/09/2021 5:47 PM EDT 06/09/2021 6:02 PM EDT Narrative Resulting Agency Comment Spec In Lab Isaiah Hoyos MD CHEMISTRY ORDERABLE S [facility] [place] [address] * (ABNORMAL) POCT Glucose (06/09/2021 4:40 PM EDT) Glucose, POC 200(H) 65 - 199 mg/dL [facility] Comment: Supplemental ranges: <140 mg/dL before meals <180 mg/dL all other times of the day Blood 06/09/2021 4:40 PM EDT 06/09/2021 4:40 PM EDT Supa Alegria MD POINT OF CARE TEST O RDERAAIRAM Performing Organization Address [facility] de Phone Number [facility] [place] [address] * (ABNORMAL) POCT Glucose (06/09/2021 3:02 PM EDT) Glucose, POC 209(H) 65 - 199 mg/dL [facility] Comment: Supplemental ranges: <140 mg/dL before meals <180 mg/dL all other times of the day Blood 06/09/2021 3:02 PM EDT 06/09/2021 3:02 PM EDT Supa Alegria MD POINT OF CARE TEST O EVITA Performing Organization Address [facility] Phone Number [facility] [place] [address] * ECHO COMPLETE W CONTRAST (06/09/2021 1:52 PM EDT) Anatomical Region Laterality Modality Other 06/09/2021 Narrative 06/09/2021 2:16 PM EDT Procedure: ?Transthoracic Echocardiogram Patient: ?COELHO ROMEO A ? (Age): 1965(56y) Med Rec#: ? [id number] ?Sex: ?M ? Site Loc: ? [facility] ?Ht / Wt: ??177(cm)/114(kg) Pt. Loc: ?CCU ? BSA: ?2.29 Study Date: ?? 06/09/2021 ?Pt. Type: Inpatient Tape: ? Referring: [email or web address] Reading: Zuleyka Hodgson ([id number]) Spray Drier Operator: Ortiz Sandoval Diagnosis: *Chest pain, unspecified (R07.9) Rhythm: ? Sinus BP: ? 103/66 SUMMARY: 1. The left ventricular chamber size is normal. Left ventricular wall thickness is normal.There is normal global left ventricular systolic function. ??Ejection fraction is estimated to be 55%.There are segmental left ventricular wall motion abnormalities involving the RCA territory. The basal to apical inferior wall is hypokinetic. Left ventricular diastolic function is normal. 2. The right ventricle is mildly dilated.Right ventricular global systolic function is low normal.Pulmonary artery hypertension could not be assessed due to inadequate tricuspid regurgitation jet. 3. The left atrium is mildly dilated. 4. There is no hemodynamically significant valve disease. 5. See remainder of report for additional findings. 6. Compared to the prior study in 2019 there is a new inferior wall motion abnormality. Findings ? : Study Quality: ? Technically limited Left Ventricle: ? The left ventricular chamber size is normal.LVEDV 51 ml/m2 ?Left ventricular wall thickness is normal. ?There is normal global left ventricular systolic function. ??Ejection fraction is estimated to be 55%. ?There are segmental left ventricular wall motion abnormalities involving the RCA territory. The entire inferior wall is hypokinetic. ?Left ventricular diastolic function is normal. ?Doppler assessment is consistent with normal left sided filling pressure. Left Atrium: ? The left atrium is mildly dilated.36 ml/m2 Right Ventricle: ? The right ventricle is probably normal in size. ?Right ventricular global systolic function is low normal. ?Pulmonary artery hypertension could not be assessed due to inadequate tricuspid regurgitation jet. Right Atrium: ? The right atrium is probably normal in size. Aortic Valve: ? The aortic valve is tricuspid. ?There is no evidence of aortic valve thickening. ?There is no evidence of aortic valve stenosis. ?There is no evidence of aortic regurgitation. Mitral Valve: ? The mitral valve leaflets appear normal. ?There is no evidence of mitral stenosis. ?There is trace mitral regurgitation present. Tricuspid Valve: ? The tricuspid valve appears normal in structure and function. ?The tricuspid valve leaflets are morphologically normal. ?There is no tricuspid valve stenosis. ?There is trace tricuspid regurgitation present. Pulmonic Valve: ? The pulmonic valve is not well visualized. ?The pulmonic valve is probably normal. ?There is no pulmonic stenosis present. ?There is no evidence of pulmonic regurgitation. Pericardium: ? There is no pericardial effusion. ?A pericardial fat pad is visualized. ?No pleural effusion is present. Aorta: ? The aortic root is normal in size. ?The ascending aorta is normal in size. Venous: ? The inferior vena cava is poorly visualized. Misc: ? There is no hemodynamically significant valve disease. ?See remainder of report for additional findings. ?Two-dimensional echo, spectral Doppler and color Doppler performed. ?Optison contrast (one 3 ml vial) was used to enhance endocardial definition. Excess contrast was discarded. Chambers 2D ?Value ?Units (Range) ? IVSd (2D) ? 1.04 ? cm ? LVPWd (2D) ?0.86 ? cm ? IVS:LVPW ratio (2D) 1.2 ?ratio ? RWT (2D) ?0.37 ? ratio ? RWT PW (2D) ? 0.33 ? ratio ? LVIDd (2D) ?5.16 ? cm ? LVIDs (2D) ?3.47 ? cm ? LVIDd (2D) index ?2.25 ? cm/m2 ? LVIDs (2D) index ?1.51 ? cm/m2 ? LV FS (2D) ?32.73 ?% ? EF Teichholz (2D) ?? 60.8 ? % ? Ao root diameter (2D3.36 ? cm (2.1 - 3.6) ? Ascending Ao ?3.1 ?cm (2 - 3.5) ? Volumes/Mass ?Value ?Units (Range) ? LA ESV BP (A/L) inde35.66 ?ml/m2 ? RA AREA 4CH ? 23 ? cm2 ? LA ESV BP (MOD) inde36 ? ml/m2 ? LV ESV SP 4CH (MOD) 49.04 ?ml ? LV ESV SP 2CH (MOD) 66.23 ?ml ? LV EDV BP ? 118 ?ml ? LV ESV BP ? 59.64 ?ml ? LV EDV BP index ? 51.47 ?ml/m2 ? LV ESV BP index ? 26.02 ?ml/m2 ? BP EF (MOD) ? 49.45 ?% ? LV mass (2D) ?178.91 ? g ? LV mass (2D) index ??78.04 ?g/m2 ? Diastolic/Systolic Function ?Value ?Units (Range) ? MV E-wave Vmax ?0.67 ? m/sec ? MV deceleration fzkx201.55 ? msec ? MV A-wave Vmax ?0.48 ? m/sec ? MV E:A ratio ?1.38 ? ratio ? LV septal e' Vmax ?? 0.09 ? m/sec ? LV lateral e' Vmax ??0.11 ? m/sec ? LV average e' Vmax ??0.1 ?m/sec ? LV E:e' septal ratio7.41 ? ratio ? LV E:e' lateral rati6.06 ? ratio ? LV average E:e' rati6.67 ? ratio ? Aortic Valve ?Value ?Units (Range) ? LVOT diameter ? 2.14 ? cm ? LVOT Vmax ? 0.76 ? m/sec ? LVOT VTI ?16.21 ?cm ? LVOT peak gradient ??2.31 ? mmHg ? LVOT mean gradient ??1.46 ? mmHg ? SV LVOT ? 58.26 ?ml ? CO LVOT ? 3.78 ? l/min ? Cardiac index ? 1.65 ? l/min/m2 ? Tricuspid Valve ?Value ?Units (Range) ? TAPSE ? 1.8 ?cm ? RV lateral s' Vmax ??0.13 ? m/sec ? TR Vmax ? 2.23 ? m/sec ? TR peak gradient ?19.86 ?mmHg ? This report has been electronically signed by: Zuleyka Hodgson MD ? 06/09/2021 14:15:33 Images reviewed and interpretation verified [facility] Cardiac Ultrasound Laboratory Procedure Note Zuleyka Hodgson MD - 06/09/2021 Procedure: Transthoracic Echocardiogram Patient: LAQUITA HARRIS(Age): 1965(56y) Med Rec#: [id number] Sex: M Site Loc: [facility] Ht / Wt: 177(cm)/114(kg) Pt. Loc: [facility] BSA: 2.29 Study Date: 06/09/2021 Pt. Type: Inpatient Tape: Referring: ALLISONMINHDA Reading: Zuleyka Hodgson ([id number]) Spray Drier Operator: Ortiz Sandoval Diagnosis: *Chest pain, unspecified (R07.9) Rhythm: Sinus BP: 103/66 SUMMARY: 1. The left ventricular chamber size is normal. Left ventricular wall thickness is normal.There is normal global left ventricular systolic function. Ejection fraction is estimated to be 55%.There are segmental left ventricular wall motion abnormalities involving the RCA territory. The basal to apical inferior wall is hypokinetic. Left ventricular diastolic function is normal. 2. The right ventricle is mildly dilated.Right ventricular global systolic function is low normal.Pulmonary artery hypertension could not be assessed due to inadequate tricuspid regurgitation jet. 3. The left atrium is mildly dilated. 4. There is no hemodynamically significant valve disease. 5. See remainder of report for additional findings. 6. Compared to the prior study in 2019 there is a new inferior wall motion abnormality. Findings : Study Quality: Technically limited Left Ventricle: The left ventricular chamber size is normal.LVEDV 51 ml/m2 Left ventricular wall thickness is normal. There is normal global left ventricular systolic function. Ejection fraction is estimated to be 55%. There are segmental left ventricular wall motion abnormalities involving the RCA territory. The entire inferior wall is hypokinetic. Left ventricular diastolic function is normal. Doppler assessment is consistent with normal left sided filling pressure. Left Atrium: The left atrium is mildly dilated.36 ml/m2 Right Ventricle: The right ventricle is probably normal in size. Right ventricular global systolic function is low normal. Pulmonary artery hypertension could not be assessed due to inadequate tricuspid regurgitation jet. Right Atrium: The right atrium is probably normal in size. Aortic Valve: The aortic valve is tricuspid. There is no evidence of aortic valve thickening. There is no evidence of aortic valve stenosis. There is no evidence of aortic regurgitation. Mitral Valve: The mitral valve leaflets appear normal. There is no evidence of mitral stenosis. There is trace mitral regurgitation present. Tricuspid Valve: The tricuspid valve appears normal in structure and function. The tricuspid valve leaflets are morphologically normal. There is no tricuspid valve stenosis. There is trace tricuspid regurgitation present. Pulmonic Valve: The pulmonic valve is not well visualized. The pulmonic valve is probably normal. There is no pulmonic stenosis present. There is no evidence of pulmonic regurgitation. Pericardium: There is no pericardial effusion. A pericardial fat pad is visualized. No pleural effusion is present. Aorta: The aortic root is normal in size. The ascending aorta is normal in size. Venous: The inferior vena cava is poorly visualized. Misc: There is no hemodynamically significant valve disease. See remainder of report for additional findings. Two-dimensional echo, spectral Doppler and color Doppler performed. Optison contrast (one 3 ml vial) was used to enhance endocardial definition. Excess contrast was discarded. Chambers 2D Value Units (Range) IVSd (2D) 1.04 cm LVPWd (2D) 0.86 cm IVS:LVPW ratio (2D) 1.2 ratio RWT (2D) 0.37 ratio RWT PW (2D) 0.33 ratio LVIDd (2D) 5.16 cm LVIDs (2D) 3.47 cm LVIDd (2D) index 2.25 cm/m2 LVIDs (2D) index 1.51 cm/m2 LV FS (2D) 32.73 % EF Teichholz (2D) 60.8 % Ao root diameter (2D3.36 cm (2.1 - 3.6) Ascending Ao 3.1 cm (2 - 3.5) Volumes/Mass Value Units (Range) LA ESV BP (A/L) inde35.66 ml/m2 RA AREA 4CH 23 cm2 LA ESV BP (MOD) inde36 ml/m2 LV ESV SP 4CH (MOD) 49.04 ml LV ESV SP 2CH (MOD) 66.23 ml LV EDV BP 118 ml LV ESV BP 59.64 ml LV EDV BP index 51.47 ml/m2 LV ESV BP index 26.02 ml/m2 BP EF (MOD) 49.45 % LV mass (2D) 178.91 g LV mass (2D) index 78.04 g/m2 Diastolic/Systolic Function Value Units (Range) MV E-wave Vmax 0.67 m/sec MV deceleration skrp112.55 msec MV A-wave Vmax 0.48 m/sec MV E:A ratio 1.38 ratio LV septal e' Vmax 0.09 m/sec LV lateral e' Vmax 0.11 m/sec LV average e' Vmax 0.1 m/sec LV E:e' septal ratio7.41 ratio LV E:e' lateral rati6.06 ratio LV average E:e' rati6.67 ratio Aortic Valve Value Units (Range) LVOT diameter 2.14 cm LVOT Vmax 0.76 m/sec LVOT VTI 16.21 cm LVOT peak gradient 2.31 mmHg LVOT mean gradient 1.46 mmHg SV LVOT 58.26 ml CO LVOT 3.78 l/min Cardiac index 1.65 l/min/m2 Tricuspid Valve Value Units (Range) TAPSE 1.8 cm RV lateral s' Vmax 0.13 m/sec TR Vmax 2.23 m/sec TR peak gradient 19.86 mmHg This report has been electronically signed by: Zuleyka Hodgson MD 06/09/2021 14:15:33 Images reviewed and interpretation verified [facility] Cardiac Ultrasound Laboratory Isaiah Hoyos MD ECHO ORDERABLES * (ABNORMAL) POCT Glucose (06/09/2021 11:49 AM EDT) Glucose, POC 258(H) 65 - 199 mg/dL [facility] Comment: Supplemental ranges: <140 mg/dL before meals <180 mg/dL all other times of the day Blood 06/09/2021 11:4 9 AM EDT 06/09/2021 11:49 AM EDT Supa Alegria MD POINT OF CARE TEST O RDERABLES [facility] [place] [address] * Troponin (06/09/2021 11:30 AM EDT) [facility] Troponin-T <0.01 0.00 - 0.00 ng/mL [facility] Comment: The 99th percentile for Troponin T is less than 0.01 ng/mL, any detectable cTnT concentration using this assay should be considered elevated. According to the third universal definition of myocardial infarction the following criteria with a clinical presentation consistent with acute myocardial ischemia meets the diagnosis for a myocardial infarction (UT). Detection of a rise and/or fall of cTnT, with at least one value greater than the 99th percentile (> or = 0.01) and with at least one of the following ?? Symptoms of ischemia ?? New or presumed new significant JQ-xdbnfoz-N wave (ST-T) changes or new left bundle branch block (LBBB) ?? Development of pathologic Q waves in the ECG ?? Imaging evidence of new loss of viable myocardium or new regional wall motion abnormality ?? Identification of an intracoronary thrombus by angiography or autopsy Samples for cTnT testing should be obtained serially upon first assessment and again 3 to 6 hours later. If the clinical suspicion is high and previous samples have been negative an additional sample may be indicated. Reference: Third [place] Definition of Myocardial Infarction. Journal of the [employer] 2012;60:1581-98 Blood 06/09/2021 11:3 0 AM EDT 06/09/2021 11:44 AM EDT Narrative Resulting Agency Comment Spec In Lab Isaiah Hoyos MD CHEMISTRY ORDERABLE S Performing Organization Address [facility] de Phone Number [facility] [place] [address] * Heparin (unfractionated) Level (06/09/2021 11:30 AM EDT) Pathologist [facility]F Heparin 0.32 IU/mL [facility] Comment: Guidelines for therapeutic unfractionated heparin levels are summarized below. Heparin (Anti-Xa) levels should be determined in a plasma sample that has been drawn 6 hours after a dose change i.e., steady-state has been reached. DRUG ?Dosing Schedule ? Target Peak Steady-State ?Heparin (Anti-Xa) Levels (Units/mL) Unfractionated ?Continuous infusion ?0.3-0.7 Heparin ?0.3-0.6 for some neurology indications Blood 06/09/2021 11:3 0 AM EDT 06/09/2021 11:44 AM EDT Narrative Resulting Agency Comment Spec In Lab Supa Alegria MD HEMATOLOGY ORDERABLE S Performing Organization Address [facility] Co de Phone Number [facility] [place] [address] * (ABNORMAL) POCT Glucose (06/09/2021 8:03 AM EDT) [facility] Glucose, POC 233(H) 65 - 199 mg/dL [facility] Comment: Supplemental ranges: <140 mg/dL before meals <180 mg/dL all other times of the day Blood 06/09/2021 8:03 AM EDT 06/09/2021 8:03 AM EDT Supa Alegria MD POINT OF CARE TEST O RDERABLES [facility] [place] [address] * (ABNORMAL) Differential, Automated (06/09/2021 5:50 AM EDT) Neutrophil % 56.8 % [facility] Neutrophil Absolute 4.64 1.70 - 6.10 x10(3)/mc L [facility] Lymph % 27.0 % [facility] Lymphocytes Abs 2.2 0.9 - 3.2 x10(3)/ L [facility] Monocyte % 8.6 % [facility] Monocyte Abs 0.7 0.3 - 0.9 x10(3)/ L [facility] Eos % 5.6 % [facility] Eosinophils Abs 0.5(H) 0.0 - 0.4 x10(3)/ L [facility] Basophil % 0.9 % [facility] Baso Absolute 0.1 0.0 - 0.1 x10(3)/ L [facility] Immature Gran % 1.10 % [facility] Comment: Immature granulocytes(IG's)percentage and absolute count will include metamyelocytes, myelocytes, and promyelocytes. Blood smears from CBCs yielding IG's will be scanned manually for concordance. If this scan disagrees with the automated IG or if promyelocytes are noted, a manual differential will be performed. Immature Gran Absolute 0.09(H) 0.00 - 0.04 x10(3)/ L [facility] Blood 06/09/2021 5:50 AM EDT 06/09/2021 6:06 AM EDT Narrative Resulting Agency Comment Spec In Lab Isaiah Hoyos MD HEMATOLOGY ORDERABL ES [facility] [place] [address] * Hemogram (06/09/2021 5:50 AM EDT) [facility] White Blood Cell 8.2 4.0 - 9.5 x10(3)/[facility]ORATORY Red Blood Cell 4.87 4.58 - 5.54 x10(6)/[facility]ATORY Hemoglobin 14.1 13.7 - 16.5 g/dL [facility] Hematocrit 42.0 40.5 - 48.5 % [facility] Mean Cell Volume 86.2 82.9 - 93.1 fL [facility] Mean Cell Hemoglobin 29.0 27.5 - 32.1 pg [facility] Mean Cell Hemoglobin Concentration 33.6 32.0 - 35.7 g/dL [facility] Platelet 240 145 - 357 x10(3)/[facility] LABORATORY RDW Standard Deviation 40.7 36.0 - 45.0 [facility] RDW coefficient of variation 12.9 11.4 - 13.8 % [facility] Mean Platelet Volume 10.9 7.6 - 12.9 [facility]ORY NRBC% auto 0.0 % [facility] NRBC Absolute 0.000 0.000 - 0.000 x10(3)/[facility] Blood 06/09/2021 5:50 AM EDT 06/09/2021 6:06 AM EDT Narrative Resulting Agency Comment Spec In Lab Isaiah Hoyos MD HEMATOLOGY ORDERABL ES Performing Organization Address City/[facility]/ZIP Co de Phone Number [facility] [place] [address] * Troponin (06/09/2021 5:50 AM EDT) [facility] Troponin-T <0.01 0.00 - 0.00 ng/mL [facility] Comment: The 99th percentile for Troponin T is less than 0.01 ng/mL, any detectable cTnT concentration using this assay should be considered elevated. According to the third universal definition of myocardial infarction the following criteria with a clinical presentation consistent with acute myocardial ischemia meets the diagnosis for a myocardial infarction (UT). Detection of a rise and/or fall of cTnT, with at least one value greater than the 99th percentile (> or = 0.01) and with at least one of the following ?? Symptoms of ischemia ?? New or presumed new significant EA-huuzrep-O wave (ST-T) changes or new left bundle branch block (LBBB) ?? Development of pathologic Q waves in the ECG ?? Imaging evidence of new loss of viable myocardium or new regional wall motion abnormality ?? Identification of an intracoronary thrombus by angiography or autopsy Samples for cTnT testing should be obtained serially upon first assessment and again 3 to 6 hours later. If the clinical suspicion is high and previous samples have been negative an additional sample may be indicated. Reference: Third [place] Definition of Myocardial Infarction. Journal of the [employer] College [employer] 2012;60:1581-98 Blood 06/09/2021 5:50 AM EDT 06/09/2021 6:05 AM EDT Narrative Resulting Agency Comment Spec In Lab Isaiah Hoyos MD CHEMISTRY ORDERABLE S [facility] [place] [address] * Heparin (unfractionated) Level (06/09/2021 5:50 AM EDT) UF Heparin 0.31 IU/mL [facility] Comment: Guidelines for therapeutic unfractionated heparin levels are summarized below. Heparin (Anti-Xa) levels should be determined in a plasma sample that has been drawn 6 hours after a dose change i.e., steady-state has been reached. DRUG ?Dosing Schedule ? Target Peak Steady-State ?Heparin (Anti-Xa) Levels (Units/mL) Unfractionated ?Continuous infusion ?0.3-0.7 Heparin ?0.3-0.6 for some neurology indications Blood 06/09/2021 5:50 AM EDT 06/09/2021 6:06 AM EDT Narrative Resulting Agency Comment Spec In Lab Isaiah Hoyos MD HEMATOLOGY ORDERABL ES Performing Organization Address [facility] Co de Phone Number [facility] [place] [place] [address] * Blood culture (06/09/2021 5:50 AM EDT) Blood Culture No growth at 5 days. [facility] Blood ANTECUBITAL REGION STRUCTURE / Unknown 06/09/2021 5:50 AM EDT 06/09/2021 10:08 AM EDT Comment:#1 Narrative Resulting Agency Comment Spec In Lab Isaiah Hoyos MD MICROBIOLOGY - BLOO D ORDERABLES Performing Organization Address [facility] Co de Phone Number [facility] [place] [address] * Lipid Panel (Reflex Direct LDL) (06/09/2021 5:50 AM EDT) Cholesterol, Total 207 mg/dL [facility] Comment: Lower Risk: <200 mg/dL Average Risk: 200-239 mg/dL Higher Risk: >qb=613 mg/dL Triglyceride 235 mg/dL [facility] Comment: Average Risk/Lower Risk: <150 mg/dL Borderline High Risk: 150-199 mg/dL High Risk: 200-499 mg/dL Very High Risk: >cq=625 mg/dL HDL Cholesterol 29 mg/dL [facility] Comment: Males: ?? Higher Risk: <40 mg/dL Females: ?? Higher Risk: <50 mg/dL LDL Cholesterol 131 mg/dL [facility] Comment: Lowest Risk: <100 mg/dL Lower Risk: 100-129 mg/dL Borderline High Risk: 130-159 mg/dL High Risk: 160-189 mg/dL Very High Risk: >jj=976 mg/dL Cholesterol/HDL Ratio 7.1 ratio [facility] Lipid Interpretation See Note [facility] Comment: Lipid management should be guided by a patient? s ASCVD risk, goals and preferences. ACC/AHA Guidelines recommend high intensity statin if clinical ASCVD or LDL greater than or equal to 190 mg/dL. http://Certeon.com/IBR-ZCB-Turxnzsud Adults aged 40-75 with LDL 70-189 mg/dL should have their 10 year ASCVD risk estimated with the ACC/AHA ASCVD risk synchro assembler http://tools.acc.org/MDMQV-Vnza-Ebmzjgjdx/ Statin should be discussed if risk greater than or equal to 7.5% in non-diabetics. With diabetes, moderate intensity statin is recommended if risk less than 7.5%, high intensity if risk greater than or equal to 7.5%. Annual lipid monitoring on statins is not necessary. Evaluate secondary causes of Triglycerides greater than 500 mg/dL or LDL greater than 190 mg/dL: See table 6 of ACC/AHA Guideline. Lifestyle modification is a critical component of ASCVD risk reduction. Blood 06/09/2021 5:50 AM EDT 06/09/2021 6:05 AM EDT Narrative Resulting Agency Comment Spec In Lab Isaiah Hoyos MD CHEMISTRY ORDERABLE S [facility] [place] [place] [address] * COVID-19 PCR (06/09/2021 5:45 AM EDT) SARS-CoV-2 RNA (Rapid) Not Detected Not Detected [facility] Comment: This result should be interpreted in combination with the clinical observations, patient history and epidemiological information. For testing of asymptomatic individuals, assay performance characteristics and clinical utility have not been evaluated. Testing for SARS-CoV-2 (Severe acute respiratory syndrome coronavirus 2, formerly known as 2019 novel coronavirus or 2019-nCoV) to aid in the diagnosis of COVID-19 is performed using the Simplexa COVID-19 Direct Assay by [employer] as authorized by the FDA issued Emergency Use Authorization (EUA). This assay is intended for In-vitro Diagnostic (IVD) use with nasopharyngeal swabs collected from individuals meeting the CDC criteria for testing. The assay is performed based on the instructions for use and additional guidance provided by the FDA. Testing is performed in the Microbiology Laboratory within the Department of Pathology and Laboratory Medicine at [facility], certified under the Clinical Laboratory Improvement Amendments of 1988 (CLIA), 42 U.S.C. section 263a, to perform high complexity tests. Assay performance has been verified according to clinical laboratory regulatory requirements. Test results are provided above. A result of Not Detected indicates that the viral RNA target is not present but does not preclude SARS-CoV-2 infection. False negative results may occur if a specimen is improperly collected, transported or handled; if amplification inhibitors are present; or if inadequate numbers of viral particles are present in the specimen. A result of Detected suggests a current or recent infection and the patient is presumed to be infected. Positive and negative predictive values for this test are highly dependent on disease prevalence. A result of Invalid indicates the inability to conclusively determine the presence or absence of SARS-CoV-2 RNA in the sample which can be due to a variety of factors. Recollection is recommended in the case of an invalid result. CDC COVID-19 criteria for testing on human specimens and clinical management guidance information are available at the CDC Coronavirus Disease 2019 (COVID-19) webpage under Information for Healthcare Professionals (https://www.cdc.gov/coronavirus/2019-ncov/hcp/index.html). Additional information about this and other EUA tests can be found in provider and patient fact sheets at the following FDA website: https://www.fda.gov/medical-devices/vgjcuzpxsap-jaxymwb-3773-kqhcs-75-grcevfija- use-a bqsnahmybavsb-mmrnzrr-cebpgkd/atizb-tyqombrsctg-vbao SARS-CoV-2 Source [employer] [facility] Nasopharyngeal Swab 06/09/20 5:45 AM EDT 06/10/2021 6:15 AM EDT Comment:Symptoms->Surveillan ce Narrative Resulting Agency Comment Spec In Lab Isaiah Hoyos MD MICROBIOLOGY - GENE RAL ORDERABLES Performing Organization Address [facility]/ZIP Co de Phone Number [facility] [place] [address] * (ABNORMAL) POCT Glucose (06/09/2021 4:20 AM EDT) Glucose, POC 224(H) 65 - 199 mg/dL [facility] Comment: Supplemental ranges: <140 mg/dL before meals <180 mg/dL all other times of the day Blood 06/09/2021 4:20 AM EDT 06/09/2021 4:20 AM EDT Supa Alegria MD POINT OF CARE TEST O RDERABLES Performing Organization Address [facility] Co de Phone Number [facility] [place] [address] * (ABNORMAL) POCT Glucose (06/09/2021 12:35 AM EDT) Glucose, POC 346(H) 65 - 199 mg/dL [facility] Comment: Supplemental ranges: <140 mg/dL before meals <180 mg/dL all other times of the day Blood 06/09/2021 12:3 5 AM EDT 06/09/2021 12:35 AM EDT Zuleyka Hodgson MD POINT OF CARE T EST ORDERABLES Performing Organization Address [facility] Co de Phone Number [facility] [place] [address] * Heparin (unfractionated) Level (2021 10:41 PM EDT) UF Heparin 0.26 IU/mL [facility] Comment: Guidelines for therapeutic unfractionated heparin levels are summarized below. Heparin (Anti-Xa) levels should be determined in a plasma sample that has been drawn 6 hours after a dose change i.e., steady-state has been reached. DRUG ?Dosing Schedule ? Target Peak Steady-State ?Heparin (Anti-Xa) Levels (Units/mL) Unfractionated ?Continuous infusion ?0.3-0.7 Heparin ?0.3-0.6 for some neurology indications Blood 2021 10:4 1 PM EDT 2021 10:47 PM EDT Narrative Resulting Agency Comment Spec In Lab Isaiah Hoyos MD HEMATOLOGY ORDERABL ES [facility] [place] [address] * EKG 12 Lead (2021 8:46 PM EDT) Ventricular rate 69 BPM MUSE SYSTEM Atrial Rate 69 BPM MUSE SYSTEM P-R Interval 148 ms MUSE SYSTEM QRS Duration 84 ms MUSE SYSTEM Q-T Interval 384 ms MUSE SYSTEM QTC Calculated (Bezet) 411 ms MUSE SYSTEM Calculated P [place] 39 degrees MUSE SYSTEM Calculated R [place] 14 degrees MUSE SYSTEM Calculated T [place] 21 degrees MUSE SYSTEM INTERPRETATION Normal sinus rhythm Normal ECG When compared with ECG of 16-MAR-2019 07:07, No significant change was found Confirmed by MD Marielena, Esperanza Smith ([id number]) on 06/09/2021 2:02:07 PM MUSE SYSTEM 2021 8:46 PM EDT 06/09/2021 2:02 PM EDT Isaiah Hoyos MD ECG ORDERABLES MUSE SYSTEM * Blood culture (2021 8:26 PM EDT) Blood Culture No growth at 5 days. [facility] Blood 2021 8:26 PM EDT 2021 8:57 PM EDT Narrative Resulting Agency Comment Spec In Lab Isaiah Hoyos MD MICROBIOLOGY - BLOO D ORDERABLES [facility] [place] [address] * Troponin (2021 7:31 PM EDT) Troponin-T <0.01 0.00 - 0.00 ng/mL [facility] Comment: The 99th percentile for Troponin T is less than 0.01 ng/mL, any detectable cTnT concentration using this assay should be considered elevated. According to the third universal definition of myocardial infarction the following criteria with a clinical presentation consistent with acute myocardial ischemia meets the diagnosis for a myocardial infarction (UT). Detection of a rise and/or fall of cTnT, with at least one value greater than the 99th percentile (> or = 0.01) and with at least one of the following ?? Symptoms of ischemia ?? New or presumed new significant [id number] wave (ST-T) changes or new left bundle branch block (LBBB) ?? Development of pathologic Q waves in the ECG ?? Imaging evidence of new loss of viable myocardium or new regional wall motion abnormality ?? Identification of an intracoronary thrombus by angiography or autopsy Samples for cTnT testing should be obtained serially upon first assessment and again 3 to 6 hours later. If the clinical suspicion is high and previous samples have been negative an additional sample may be indicated. Reference: Third [place] Definition of Myocardial Infarction. Journal of the [employer] 2012;60:1581-98 Blood 2021 7:31 PM EDT 2021 7:37 PM EDT Narrative Resulting Agency Comment Spec In Lab Isaiah Hooys MD CHEMISTRY ORDERABLE S [facility] [place] [address] * (ABNORMAL) Differential, Automated (2021 7:31 PM EDT) Neutrophil % 53.6 % [facility] Neutrophil Absolute 4.36 1.70 - 6.10 x10(3)/mc L [facility] Lymph % 28.5 % [facility] Lymphocytes Abs 2.3 0.9 - 3.2 x10(3)/ L [facility] Monocyte % 10.8 % [facility] Monocyte Abs 0.9 0.3 - 0.9 x10(3)/ L [facility] Eos % 5.4 % [facility] Eosinophils Abs 0.4 0.0 - 0.4 x10(3)/ L [facility] Basophil % 1.0 % [facility] Baso Absolute 0.1 0.0 - 0.1 x10(3)/ L [facility] Immature Gran % 0.70 % [facility] Comment: Immature granulocytes(IG's)percentage and absolute count will include metamyelocytes, myelocytes, and promyelocytes. Blood smears from CBCs yielding IG's will be scanned manually for concordance. If this scan disagrees with the automated IG or if promyelocytes are noted, a manual differential will be performed. Immature Gran Absolute 0.06(H) 0.00 - 0.04 x10(3)/ L [facility] Blood 2021 7:31 PM EDT 2021 7:37 PM EDT Narrative Resulting Agency Comment Spec In Lab Iasiah Hoyos MD HEMATOLOGY ORDERABL ES [facility] [place] [address] * (ABNORMAL) Hemogram (2021 7:31 PM EDT) [facility] White Blood Cell 8.1 4.0 - 9.5 x10(3)/[facility] Red Blood Cell 4.65 4.58 - 5.54 x10(6)/[facility] Hemoglobin 13.5(L) 13.7 - 16.5 g/dL [facility] Hematocrit 39.4(L) 40.5 - 48.5 % [facility] Mean Cell Volume 84.7 82.9 - 93.1 fL [facility] Mean Cell Hemoglobin 29.0 27.5 - 32.1 pg [facility] Mean Cell Hemoglobin Concentration 34.3 32.0 - 35.7 g/dL [facility] Platelet 219 145 - 357 x10(3)/[facility] RDW Standard Deviation 39.9 36.0 - 45.0 [facility] RDW coefficient of variation 13.1 11.4 - 13.8 % [facility] Mean Platelet Volume 10.5 7.6 - 12.9 [facility] NRBC% auto 0.0 % [facility] NRBC Absolute 0.000 0.000 - 0.000 x10(3)/[facility] Blood 2021 7:31 PM EDT 2021 7:37 PM EDT Narrative Resulting Agency Comment Spec In Lab Isaiah Hoyos MD HEMATOLOGY ORDERABL ES [facility] [place] [address] * (ABNORMAL) Basic Metabolic Panel (non-fasting) (2021 7:31 PM EDT) [facility] Glucose 244(H) 65 - 199 mg/dL [facility] Comment:Diabetes: >=200 mg/d L plus symptoms Blood Urea Nitrogen 12 10 - 20 mg/dL [facility] Creatinine 0.73(L) 0.80 - 1.50 mg/dL [facility] Sodium 133(L) 135 - 145 mmol/L [facility] Potassium 4.0 3.5 - 5.0 mmol/L [facility] Comment: Please note: ??Patients with WBC >100,000 may have falsely elevated Potassium levels. ??For accurate Potassium quantification in these patients send serum separator tube (gold top) for subsequent determinations. ??Contact the Clinical Chemistry Laboratory if there are any questions. Chloride 100 98 - 107 mmol/L [facility] Carbon Dioxide 22 22 - 31 mmol/L [facility] Anion Gap 11 5 - 15 mmol/L [facility] Calcium 9.3 8.5 - 10.5 mg/dL [facility] Est Glomerular Filtration Rate 105 >=60 mL/min/1. 73 m?? [facility] Comment: This patient? s estimated glomerular filtration rate (eGFR) is between 105 mL/min/1.73 m2 (patients with less muscle mass per kg body weight) and 122 mL/min/1.73 m2 (patients with more muscle mass [...] and symptoms in addition to eGFR. Blood 2021 7:31 PM EDT 2021 7:37 PM EDT Narrative Resulting Agency Comment Spec In Lab Isaiah Hoyos MD CHEMISTRY ORDERABLE S [facility] [place] [address] documented in this encounter Visit Diagnoses Not on filedocumented in this encounter Admitting Diagnoses Diagnosis Unstable angina Intermediate coronary syndrome documented in this encounter Administered Medications Inactive Administered Medications - up to 3 most recent administrations Medication Order MAR Action Action Date Dose Rate Site aspirin chewable tablet 81 mg 81 mg, Oral, DAILY, First dose on 06/09/21 at 0900, Until Discontinued, Routine Given 06/10/2021 9:32 AM EDT 81 mg Given 06/09/2021 8:37 AM EDT 81 mg buPROPion SR (Wellbutrin SR) tablet 150 mg 150 mg, Oral, 2 TIMES DAILY, First dose on 06/08/21 at 2115, Until Discontinued, DO NOT CRUSH OR OPEN, Routine Given 06/10/2021 9:32 AM EDT 150 mg Given 06/09/2021 8:22 PM EDT 150 mg Given 06/09/2021 8:37 AM EDT 150 mg cephALEXin (Keflex) capsule 500 mg 500 mg, Oral, 4 TIMES DAILY, 20 doses, First dose on 06/10/21 at 2000, Last dose on 06/15/21 at 1700, Routine, Indication for (Active or Suspected): Skin/Skin Structure clopidogreL (Plavix) tablet 75 mg 75 mg, Oral, DAILY, First dose on 06/09/21 at 0900, Until Discontinued, Routine Given 06/10/2021 9:32 AM EDT 75 mg Given 06/09/2021 8:37 AM EDT 75 mg dextrose 10% infusion 250 mL, at 1,000 mL/hr, Intravenous, EVERY 30 MIN PRN, Starting on 06/08/21 at 2110, Until Thu06/10/21 at 2028, For BG 50-70 mg/dL: Oral treatment preferred: If able to drink, give 120 mL Juice or Regular (not diet) soda OR If NPO, give 15 gram glucose 40% oral gel massaged into buccal mucosa OR if unconscious or uncooperative, give 25 gram (250 mL) Dextrose 10% IV over 15 minutes per protocol OR, if no IV access, 1 mg Glucagon IM. For BG less than 50 mg/dL: Oral treatment preferred: If able to drink, give 240 mL Juice or Regular (not diet) soda OR If NPO, give 30 gram glucose 40% oral gel massaged in buccal mucosa OR if unconscious or uncooperative, give 25 gram (250 mL) Dextrose 10% IV over 15 minutes per protocol OR, if no IV access, 1 mg Glucagon IM. Recheck BG in 30 minutes. May repeat juice/soda, gel, dextrose or glucagon once per episode. For persistent hypoglycemia, consider longer-acting treatment for the duration of the active insulin. DULoxetine DR (Cymbalta) capsule 60 mg 60 mg, Oral, 2 TIMES DAILY, First dose on 06/08/21 at 2115, Until Discontinued, Routine Given 06/10/2021 9:3 2 AM EDT 60 mg Given 06/09/2021 8:22 PM EDT 60 mg Given 06/09/2021 8:37 AM EDT 60 mg fentaNYL (pf) (50 mcg/mL) multi-dose injection ONCE PRN, Starting on 06/10/21 at 1054, Until Thu06/10/21 at 1148, Intra-Operative (Intra-Procedure), Routine Given 06/10/2021 10:54 AM EDT 25 mcg gabapentin (Neurontin) capsule 300 mg 300 mg, Oral, 3 TIMES DAILY, First dose on 06/08/21 at 2115, Until Discontinued, Routine Given 06/10/2021 3:44 PM EDT 300 mg Given 06/10/2021 9:32 AM EDT 300 mg Given 06/09/2021 8:22 PM EDT 300 mg glucagon (Glucagen) (1 mg/mL) injection solution 1 mg 1 mg, Intramuscular, EVERY 30 MIN PRN, Starting on 06/08/21 at 2110, Until Thu06/10/21 at 2028, Low blood sugar, For BG 50-70 mg/dL: Oral treatment preferred: If able to drink, give 120 mL Juice or Regular (not diet) soda OR If NPO, give 15 gram glucose 40% oral gel massaged into buccal mucosa OR if unconscious or uncooperative, give 25 gram (250 mL) Dextrose 10% IV over 15 minutes per protocol OR, if no IV access, 1 mg Glucagon IM. For BG less than 50 mg/dL: Oral treatment preferred: If able to drink, give 240 mL Juice or Regular (not diet) soda OR If NPO, give 30 gram glucose 40% oral gel massaged in buccal mucosa OR if unconscious or uncooperative, give 25 gram (250 mL) Dextrose 10% IV over 15 minutes per protocol OR, if no IV access, 1 mg Glucagon IM. Recheck BG in 30 minutes. May repeat juice/soda, gel, dextrose or glucagon once per episode. For persistent hypoglycemia, consider longer-acting treatment for the duration of the active insulin., Routine glucose (GLUTOSE) 40% oral geL 15-30 g, Buccal, EVERY 30 MIN PRN, Starting on 06/08/21 at 2110, Until 06/10/21 at 2028, Low blood sugar, For BG 50-70 mg/dL: Oral treatment preferred: If able to drink, give 120 mL Juice or Regular (not diet) soda OR If NPO, give 15 gram glucose 40% oral gel massaged into buccal mucosa OR if unconscious or uncooperative, give 25 gram (250 mL) Dextrose 10% IV over 15 minutes per protocol OR, if no IV access, 1 mg Glucagon IM. For BG less than 50 mg/dL: Oral treatment preferred: If able to drink, give 240 mL Juice or Regular (not diet) soda OR If NPO, give 30 gram glucose 40% oral gel massaged in buccal mucosa OR if unconscious or uncooperative, give 25 gram (250 mL) Dextrose 10% IV over 15 minutes per protocol OR, if no IV access, 1 mg Glucagon IM. Recheck BG in 30 minutes. May repeat juice/soda, gel, dextrose or glucagon once per episode. For persistent hypoglycemia, consider longer-acting treatment for the duration of the active insulin. 1 tube contains 15 grams of glucose (net weight of tube = 37.5 grams., Routine heparin (porcine) (1,000 units/mL) injection ONCE PRN, Starting on 06/10/21 at 1122, Until Thu06/10/21 at 1147, Cath (Intra-Procedure), Routine Given 06/10/2021 11:32 AM EDT 2,000 Units Given 06/10/2021 11:22 AM EDT 4,000 Units insulin glargine (Lantus;Semglee) (100 unit/mL) subcutaneous injection vial 15 Units 15 Units, Subcutaneous, NIGHTLY, First dose on Thu06/10/21 at 2100, Until Discontinued, Routine insulin lispro (HumaLOG;Admelog) (100 unit/mL) subcutaneous injection vial 0-8 Units 0-8 Units, Subcutaneous, 3 TIMES DAILY WITH MEALS, First dose on Thu06/09/21 at 0815, Until Discontinued, ME[employer] Give 1 unit for every 10 grams carbohydrate. Hold if not eating or if BG less than 70 mg/dL., Routine Given 06/10/2021 5:27 PM EDT 3 Units Given 06/10/2021 1:50 PM EDT 4 Units Given 06/09/2021 5:51 PM EDT 4 Units insulin lispro (HumaLOG;Admelog) (100 unit/mL) subcutaneous injection vial 1-6 Units 1-6 Units, Subcutaneous, EVERY 4 HOURS SCHEDULED, First dose (after last modification) on Thu06/10/21 at 1600, Until Discontinued, CORRECTION BOLUS Custom BG 150 - 180 Give 1 units BG 181 - 210 Give 2 units BG 211 - 240 Give 3 units BG 241 - 270 Give 4 units BG greater than 270, give 5 units and recheck BG in 2 hours. If BG remains GREATER THAN 270, GIVE 5 units (no more than two times) & call for new basal insulin orders. If less than 270 after two hours, give no insulin and resume prior schedule. DO NOT hold if NPO, unless specifically directed to do so by written order. Per Blood Glucose Monitoring Policy, re-check a BG of > 240 mg/dL in 2 hours., Routine Given 06/10/2021 4:33 PM EDT 1 Units iohexoL (Omnipaque) (350 mg/mL) injection solution ONCE PRN, Starting on Thu06/10/21 at 1145, Until Thu06/10/21 at 1147, Cath (Intra-Procedure), Routine Given 06/10/2021 11:45 AM EDT 38 mLs isosorbide mononitrate CR (Imdur) tablet 30 mg 30 mg, Oral, EVERY MORNING, First dose on Thu06/09/21 at 0600, Until Discontinued, DO NOT CRUSH OR OPEN, Routine Given 06/10/2021 5:38 AM EDT 30 mg Given 06/09/2021 6:52 AM EDT 30 mg lidocaine (Xylocaine) 1% (10 mg/mL) injection 3 mg 3 mg (0.3 mL), Subcutaneous, ONCE PRN, 1 dose, Starting on 06/08/21 at 1909, Until 06/10/21 at 2028, for discomfort with PIV insertion, Routine lidocaine (Xylocaine) 1% (10 mg/mL) injection ONCE PRN, Starting on 06/10/21 at 1100, Until Thu06/10/21 at 1147, Cath (Intra-Procedure), Routine Given 06/10/2021 11:00 AM EDT 10 mLs losartan (Cozaar) tablet 12.5 mg 12.5 mg, Oral, DAILY, First dose on 06/09/21 at 0900, Until Discontinued, Routine Given 06/10/2021 9:32 AM EDT 12.5 mg Given 06/09/2021 8:37 AM EDT 12.5 mg metoprolol succinate XL (Toprol-XL) tablet 100 mg 100 mg, Oral, DAILY, First dose on 06/09/21 at 0900, Until Discontinued, DO NOT CRUSH OR OPEN, Routine Given 06/10/2021 9:32 AM EDT 100 mg Given 06/09/2021 8:37 AM EDT 100 mg midazolam (pf) (Versed) (1 mg/mL) multi-dose injection ONCE PRN, Starting on 06/10/21 at 1054, Until Thu06/10/21 at 1147, Cath (Intra-Procedure), Routine Given 06/10/2021 10:54 AM EDT 1 mg nitroGLYcerin (Nitrostat) disintegrating tablet 0.4 mg 0.4 mg, Sublingual, EVERY 5 MIN PRN, Starting on 06/08/21 at 1909, Until Thu06/10/21 at 2028, Chest pain, May repeat every 5 minutes for a total of three doses. Notify provider if chest pain not relieved with nitroglycerin. Do not administer nitroglycerin if the patient has received or taken phosphodiesterase (PDE-5) inhibitors such as sildenafil, tadalafil or vardenafil within the last 24 to 72 hours., Routine nitroGLYcerin 100 mcg/mL intracoronary dilution ONCE PRN, Starting on 06/10/21 at 1116, Until Thu06/10/21 at 1147, Cath (Intra-Procedure), Routine Given 06/10/2021 11:16 AM EDT 150 mcg pantoprazole EC (Protonix) tablet 40 mg 40 mg, Oral, 2 TIMES DAILY, First dose on 06/08/21 at 2115, Until Discontinued, DO NOT CRUSH OR OPEN, Routine Given 06/10/2021 9:32 AM EDT 40 mg Given 06/09/2021 8:22 PM EDT 40 mg Given 06/09/2021 8:36 AM EDT 40 mg pramipexole (Mirapex) tablet 0.5 mg 0.5 mg, Oral, NIGHTLY, First dose on 06/08/21 at 2115, Until Discontinued, Routine Given 06/09/2021 8:2 3 PM EDT 0.5 mg Given 2021 9:42 PM EDT 0.5 mg ranolazine ER (Ranexa) tablet 500 mg 500 mg, Oral, 2 TIMES DAILY, First dose on 06/10/21 at 1100, Until Discontinued, DO NOT CRUSH OR OPEN. Baseline EKG required before administration., Routine, Has baseline EKG been obtained? Yes Given 06/10/2021 12:38 PM EDT 500 mg rosuvastatin (Crestor) tablet 40 mg 40 mg, Oral, EVERY EVENING, First dose on 06/10/21 at 1700, Until Discontinued, Routine Given 06/10/2021 4:33 PM EDT 40 mg sodium chloride 0.9 % (flush) (BD PosiFlush Normal Saline 0.9) flush 5 mL 5 mL, Intravenous, 2 TIMES DAILY, First dose on 06/08/21 at 2100, Until Discontinued, Routine Given 06/10/2021 9:46 AM EDT 5 mLs Given 06/09/2021 8:43 AM EDT 5 mLs Given 2021 9:43 PM EDT 5 mLs sodium chloride 0.9 % (flush) (BD PosiFlush Normal Saline 0.9) flush 5-20 mL 5-20 mL, Intravenous, EVERY 1 MIN PRN, Starting on 06/08/21 at 1909, Until 06/10/21 at 2028, flush, Flush pertains to all indwelling lines. Flush per protocol found in the job aid using the link provided on this medication record., Routine sodium chloride 0.9 % (flush) (BD PosiFlush Normal Saline 0.9) flush ONCE PRN, Starting on 06/10/21 at 1119, Until 06/10/21 at 1147, Cath (Intra-Procedure), Routine Given 06/10/2021 11:19 AM EDT 500 mLs sodium chloride 0.9% infusion CONTINUOUS PRN, Starting on 06/10/21 at 1053, Until 06/10/21 at 1147, Cath (Intra-Procedure) New Bag 06/10/2021 10:53 AM EDT 10 mL/hr 10 mL/hr topiramate (Topamax) tablet 50 mg 50 mg, Oral, NIGHTLY, First dose on 06/08/21 at 2115, Until Discontinued, Routine Given 06/09/2021 8:24 PM EDT 50 mg Given 2021 9:42 PM EDT 50 mg verapamiL (Isoptin) (2.5 mg/mL) injection ONCE PRN, Starting on 06/10/21 at 1116, Until 06/10/21 at 1147, Administer over 2 Minutes, Cath (Intra-Procedure) Given 06/10/2021 11:16 AM EDT 2.5 mg documented in this encounter Active and Recently Administered Medications Times are shown in EDT. Scheduled Medication Order 2021 06/09/2021 06/10/2021 aspirin chewable tablet 81 mg 81 mg, Oral, DAILY, First dose on 06/09/21 at 0900, Until Discontinued, Routine 0837 (Given - Provider: Fabienne Morelos RN) 0932 (Given - Provider: Fabienne Morelos RN)1041 (MAR Hold - Provider: Admin Adt - Reason: Transfer to a Procedural area)1224 (MAR Unhold - Provider: Admin Adt) atorvastatin (Lipitor) tablet 80 mg (CANCELED) 80 mg, Oral, EVERY EVENING, First dose on 06/09/21 at 1700, Until Discontinued, Routine 1642 (Given - Provider: Fabienne Morelos RN) buPROPion SR (Wellbutrin SR) tablet 150 mg 150 mg, Oral, 2 TIMES DAILY, First dose on 06/08/21 at 2115, Until Discontinued, DO NOT CRUSH OR OPEN, Routine 214 (Given - Provider: Arturo Morris RN) 0837 (Given - Provider: Fabienne Morelos RN)2021 (Given - Provider: Emily Olmedo RN) 0932 (Given - Provider: Fabienne Morelos RN)1041 ([facility] Hold - Provider: Admin Adt - Reason: Transfer to a Procedural area)1224 ([facility] Unhold - Provider: Admin Adt) cephALEXin (Keflex) capsule 500 mg 500 mg, Oral, 4 TIMES DAILY, 20 doses, First dose on 06/10/21 at 2000, Last dose on 06/15/21 at 1700, Routine, Indication for (Active or Suspected): Skin/Skin Structure clopidogreL (Plavix) tablet 75 mg 75 mg, Oral, DAILY, First dose on 06/09/21 at 0900, Until Discontinued, Routine 0837 (Given - Provider: Fabienne Morelos RN) 0932 (Given - Provider: Fabienne Morelos RN)1041 ([facility] Hold - Provider: Admin Adt - Reason: Transfer to a Procedural area)1224 ([facility] Unhold - Provider: Admin Adt) DULoxetine DR (Cymbalta) capsule 60 mg 60 mg, Oral, 2 TIMES DAILY, First dose on 06/08/21 at 2115, Until Discontinued, Routine 2140 (Given - Provider: Arturo Morris RN) 0837 (Given - Provider: Fabienne Morelos RN)2021 (Given - Provider: Emily Olmedo RN) 0932 (Given - Provider: Fabienne Morelos RN)1041 ([facility] Hold - Provider: Admin Adt - Reason: Transfer to a Procedural area)1224 ([facility] Unhold - Provider: Admin Adt) gabapentin (Neurontin) capsule 300 mg 300 mg, Oral, 3 TIMES DAILY, First dose on 06/08/21 at 2115, Until Discontinued, Routine 2140 (Given - Provider: Arturo Morris RN) 0837 (Given - Provider: Fabienne Morelos RN)152 (Given - Provider: Fabienne Morelos RN)202 (Given - Provider: Emily Olmedo RN) 0932 (Given - Provider: Fabienne Morelos RN)1041 ([facility] Hold - Provider: Admin Adt - Reason: Transfer to a Procedural area)1224 ([facility] Unhold - Provider: Admin Adt)1544 (Given - Provider: Fabienne oMrelos RN) insulin glargine (Lantus;Semglee) (100 unit/mL) subcutaneous injection vial 15 Units 15 Units, Subcutaneous, NIGHTLY, First dose on 06/10/21 at 2100, Until Discontinued, Routine insulin lispro (HumaLOG;Admelog) (100 unit/mL) subcutaneous injection vial 0-8 Units 0-8 Units, Subcutaneous, 3 TIMES DAILY WITH MEALS, First dose on 06/09/21 at 0815, Until Discontinued, [employer] Give 1 unit for every 10 grams carbohydrate. Hold if not eating or if BG less than 70 mg/dL., Routine 1016 (Given - Provider: Fabienne Morelos RN)1237 (Given - Provider: Fabienne Morelos RN)1751 (Given - Provider: Fabienne Morelos RN) 0800 (Not Given - Provider: Fabienne Morelos RN - Reason: NPO)1041 (MAR Hold - Provider: Admin Adt - Reason: Transfer to a Procedural area)1200 (Canceled Entry - Provider: Fabienne Morelos RN - Reason: Transfer to a Procedural area)1224 (MAR Unhold - Provider: Admin Adt)1350 (Given - Provider: Fabienne Morelos RN)1727 (Given - Provider: Fabienne Morelos RN) insulin lispro (HumaLOG;Admelog) (100 unit/mL) subcutaneous injection vial 1-4 Units (CANCELED)(Linked Group 1) 1-4 Units, Subcutaneous, EVERY 4 HOURS SCHEDULED, First dose on 06/09/21 at 0000, Until Discontinued, CORRECTION BOLUS [1-4 Units] Sensitive Sliding Scale (BG in mg/dL): Correction factor 40 (1 unit of insulin is expected to drop the glucose 40 mg/dL) BG 160 - 200 Give 1 unit BG 201 - 240 Give 2 units BG 241 - 280 Give 3 units BG greater than 280, give 4 units and recheck BG in 2 hours. - If recheck BG is LESS than 280, give no insulin and resume schedule - If recheck BG is GREATER than 280, give 4 units and repeat BG in 2 hours (no more than 3 times) & call for new insulin orders. DO NOT hold if NPO, unless specifically directed to do so by written order. Per Blood Glucose Monitoring Policy, re-check a BG of > 240 mg/dL in 2 hours., Routine 0040 (Given - Provider: Arturo Morris RN)0423 (Given - Provider: Arturo Morris RN)0841 (Given - Provider: Fabienne Morelos RN)1200 (Not Given - Provider: Fabienne Morelos RN - Reason: Contraindicated) insulin lispro (HumaLOG;Admelog) (100 unit/mL) subcutaneous injection vial 1-6 Units (CANCELED) 1-6 Units, Subcutaneous, EVERY 4 HOURS SCHEDULED, First dose on 06/09/21 at 1300, Until Discontinued, CORRECTION BOLUS [1-6 Units] Moderate Sliding Scale (BG in mg/dL): Correction factor 20 (1 unit of insulin is expected to drop the glucose 20 mg/dL) BG 140 - 160 Give 1 unit BG 161 - 180 Give 2 units BG 181 - 200 Give 3 units BG 201 - 220 Give 4 units BG 221 - 240 Give 5 units BG greater than 240, give 6 units and recheck BG in 2 hours. - If recheck BG is LESS than 240, give no insulin and resume schedule. - If recheck BG is GREATER than 240, give 6 units and repeat BG in 2 hours (no more than 3 times) & call for new insulin orders. DO NOT hold if NPO, unless specifically directed to do so by written order. Per Blood Glucose Monitoring Policy, re-check a BG of > 240 mg/dL in 2 hours., Routine 1215 (Given - Provider: Fabienne Morelos RN)1642 (Given - Provider: Fabienne Morelos RN)2000 (Given - Provider: Emily Olmedo RN) 0000 (Not Given - Provider: Emily Omledo RN - Reason: Patient/family refused)0349 (Given - Provider: Emily Olmedo RN)0935 (Given - Provider: Fabienne Morelos RN)1041 (MAR Hold - Provider: Admin Adt - Reason: Transfer to a Procedural area)1200 (Canceled Entry - Provider: Fabienne Morelos RN - Reason: Transfer to a Procedural area)1224 (MAR Unhold - Provider: Admin Adt)1238 (Given - Provider: Fabienne Morelos RN) insulin lispro (HumaLOG;Admelog) (100 unit/mL) subcutaneous injection vial 1-6 Units(Linked Group 2) 1-6 Units, Subcutaneous, EVERY 4 HOURS SCHEDULED, First dose (after last modification) on 06/10/21 at 1600, Until Discontinued, CORRECTION BOLUS Custom BG 150 - 180 Give 1 units BG 181 - 210 Give 2 units BG 211 - 240 Give 3 units BG 241 - 270 Give 4 units BG greater than 270, give 5 units and recheck BG in 2 hours. If BG remains GREATER THAN 270, GIVE 5 units (no more than two times) & call for new basal insulin orders. If less than 270 after two hours, give no insulin and resume prior schedule. DO NOT hold if NPO, unless specifically directed to do so by written order. Per Blood Glucose Monitoring Policy, re-check a BG of > 240 mg/dL in 2 hours., Routine 1633 (Given - Provider: Fabienne Morelos RN) isosorbide mononitrate CR (Imdur) tablet 30 mg 30 mg, Oral, EVERY MORNING, First dose on 06/09/21 at 0600, Until Discontinued, DO NOT CRUSH OR OPEN, Routine 0652 (Given - Provider: Arturo Morris RN) 0538 (Given - Provider: Emily Olmedo RN)1041 (OCT Hold - Provider: Admin Adt - Reason: Transfer to a Procedural area)1224 ([facility] Unhold - Provider: Admin Adt) losartan (Cozaar) tablet 12.5 mg 12.5 mg, Oral, DAILY, First dose on 06/09/21 at 0900, Until Discontinued, Routine 0837 (Given - Provider: Fabienne Morelos RN) 0932 (Given - Provider: Fabienne Morelos RN)1041 (MAR Hold - Provider: Admin Adt - Reason: Transfer to a Procedural area)1224 (MAR Unhold - Provider: Admin Adt) metoprolol succinate XL (Toprol-XL) tablet 100 mg 100 mg, Oral, DAILY, First dose on 06/09/21 at 0900, Until Discontinued, DO NOT CRUSH OR OPEN, Routine 0837 (Given - Provider: Fabienne Morelos RN) 0932 (Given - Provider: Fabienne Morelos RN)1041 (MAR Hold - Provider: Admin Adt - Reason: Transfer to a Procedural area)1224 (OCT Unhold - Provider: Admin Adt) ondansetron (pf) (Zofran) (2 mg/mL) injection 4 mg (COMPLETED) 4 mg, Intravenous, ONCE, 1 dose, On 06/09/21 at 0230 0136 (Given - Provider: Arturo Morris RN) ondansetron (pf) (Zofran) (2 mg/mL) injection 4 mg (COMPLETED) 4 mg, Intravenous, ONCE, 1 dose, On 06/10/21 at 0430 0346 (Given - Provider: Emily Olmedo RN) pantoprazole EC (Protonix) tablet 40 mg 40 mg, Oral, 2 TIMES DAILY, First dose on 06/08/21 at 2115, Until Discontinued, DO NOT CRUSH OR OPEN, Routine 2140 (Given - Provider: Arturo Morris RN) 0836 (Given - Provider: Fabienne Morelos RN)202 (Given - Provider: Emily Olmedo RN) 0932 (Given - Provider: Fabienne Morelos RN)1041 (OCT Hold - Provider: Admin Adt - Reason: Transfer to a Procedural area)1224 (OCT Unhold - Provider: Admin Adt) piperacillin-tazobactam (Zosyn) 4.5 g vial attach to sodium chloride 0.9% 100 mL Mini-Bag Plus (CANCELED) 4.5 g, Intravenous, EVERY 8 HOURS, First dose on 06/08/21 at 2100, Until Discontinued, Administer over 4 Hours, Warning Vesicant/Irritant Medication Do not administer or Y-site with lactated ringers., Indication for (Active or Suspected): Skin/Skin Structure 2144 (New Bag - Provider: Arturo Morris RN) 0145 (Stopped - Provider: Arturo Morris RN)0551 (New Bag - Provider: Arturo Morris RN)0951 (Stopped - Provider: Fabienne Morelos RN)1239 (New Bag - Provider: Fabienne Morelos RN)1639 (Stopped - Provider: Fabienne Morelos RN)202 (New Bag - Provider: Emily Olmedo RN) 0021 (Stopped - Provider: Emily Olmedo RN)0538 (New Bag - Provider: Emily Olmedo RN)0938 (Stopped - Provider: Fabienne Morelos RN)1041 (OCT Hold - Provider: Admin Adt - Reason: Transfer to a Procedural area)1224 (MAR Unhold - Provider: Admin Adt)1238 (New Bag - Provider: Fabienne Morelos RN)1638 (Stopped - Provider: Fabienne Morelos RN) pramipexole (Mirapex) tablet 0.5 mg 0.5 mg, Oral, NIGHTLY, First dose on 06/08/21 at 2115, Until Discontinued, Routine 214 (Given - Provider: Arturo Morris RN) 202 (Given - Provider: Emily Olmedo RN) 1041 (OCT Hold - Provider: Admin Adt - Reason: Transfer to a Procedural area)1224 ([facility] Unhold - Provider: Admin Adt) ranolazine ER (Ranexa) tablet 500 mg 500 mg, Oral, 2 TIMES DAILY, First dose on Thu06/10/21 at 1100, Until Discontinued, DO NOT CRUSH OR OPEN. Baseline EKG required before administration., Routine, Has baseline EKG been obtained? Yes 1041 (OCT Hold - Provider: Admin Adt - Reason: Transfer to a Procedural area)1100 (Canceled Entry - Provider: Fabienne Morelos RN - Reason: Transfer to a Procedural area)1224 ([facility] Unhold - Provider: Admin Adt)1238 (Given - Provider: Fabienne Morelos RN) rosuvastatin (Crestor) tablet 40 mg 40 mg, Oral, EVERY EVENING, First dose on Thu06/10/21 at 1700, Until Discontinued, Routine 1041 (OCT Hold - Provider: Admin Adt - Reason: Transfer to a Procedural area)1224 ([facility] Unhold - Provider: Admin Adt)1633 (Given - Provider: Fabienne Morelos RN) sodium chloride 0.9 % (flush) (BD PosiFlush Normal Saline 0.9) flush 5 mL 5 mL, Intravenous, 2 TIMES DAILY, First dose on 06/08/21 at 2100, Until Discontinued, Routine 2143 (Given - Provider: Arturo Morris RN) 0843 (Given - Provider: Fabienne Morelos RN)2100 (Not Given - Provider: Emily Olmedo RN - Reason: Order parameters not met) 0946 (Given - Provider: Fabienne Morelos RN)1041 (MAR Hold - Provider: Admin Adt - Reason: Transfer to a Procedural area)1224 (MAR Unhold - Provider: Admin Adt) topiramate (Topamax) tablet 50 mg 50 mg, Oral, NIGHTLY, First dose on 06/08/21 at 2115, Until Discontinued, Routine 2141 (Given - Provider: Arturo Morris RN) 2023 (Given - Provider: Emily Olmedo RN) 1041 (MAR Hold - Provider: Admin Adt - Reason: Transfer to a Procedural area)1224 (MAR Unhold - Provider: Admin Adt) vancomycin (Vancocin) 1.75 gram in sodium chloride 0.9% 500 mL infusion (CANCELED)(Linked Group 3) 1,750 mg, Intravenous, at 250 mL/hr, EVERY 12 HOURS, First dose on 06/08/21 at 2100, Until Discontinued, Maximum infusion rate is 1 gram/hour. If flushing of the face, neck, upper body, arms, and/or back occurs decrease infusion rate by 50% to reduce the severity of symptoms. This medication may have an associated drug lab level. Please see MAR for scheduled level. Warning Vesicant/Irritant Medication , Routine 2241 (Given - Provider: Arturo Morris RN) 0846 (Given - Provider: Fabienne Morelos RN)1134 (IV Stop - Provider: Leonora Salas RN) vancomycin (Vancocin) 1.75 gram in sodium chloride 0.9% 500 mL infusion (CANCELED) 1,750 mg, Intravenous, at 250 mL/hr, EVERY 12 HOURS, First dose (after last modification) on 06/09/21 at 2100, Until Discontinued, Maximum infusion rate is 1 gram/hour. If flushing of the face, neck, upper body, arms, and/or back occurs decrease infusion rate by 50% to reduce the severity of symptoms. This medication may have an associated drug lab level. Please see MAR for scheduled level. Warning Vesicant/Irritant Medication , Routine 2023 (Given - Provider: Emily Olmedo RN) 0937 (Given - Provider: Fabienne Morelos RN)1041 (OCT Hold - Provider: Admin Adt - Reason: Transfer to a Procedural area)1224 ([facility] Unhold - Provider: Admin Adt) Continuous Medication Order 2021 06/09/2021 06/10/2021 heparin (porcine) 50 units/mL in sodium chloride 0.45% 500 mL infusion (CANCELED)(Linked Group 4) 0-5,000 Units/hr (0-100 mL/hr), Intravenous, CONTINUOUS, Starting on 06/08/21 at 2100, Until 06/10/21 at 1148, BEGIN infusion at 1,000 units per hr (12 units/kg/hr). MAX INITIAL infusion rate is 1,000 units/hr. Target Heparin UFH Level (anti-Xa activity) = 0.3 - 0.7 IU/mL Start adjustment schedule 6 hours after starting infusion. If Heparin UFH Level is: - less than 0.1 IU/mL, administer PRN bolus and increase rate by 450 units per hr (4 units/kg/hr) - 0.1 - 0.29 IU/mL, administer PRN bolus and increase rate by 250 units per hr (2 units/kg/hr) - 0.3 - 0.7 IU/mL, No Change - 0.71 - 0.85 IU/mL, decrease rate by 100 units per hr (1 units/kg/hr) - 0.86 - 1.05 IU/mL, stop infusion for 30 minutes, then decrease rate by 250 units per hr (2 units/kg/hr) - Greater than 1.05 IU/mL, stop infusion for 60 minutes, then decrease rate by 350 units per hour (3 units/kg/hr) Repeat Heparin UFH Level 6 hours after initiating heparin. Then 6 hours after each dose adjustment. When 2 consecutive Heparin UFH Level within target range of 0.3 - 0.7 IU/mL, change Heparin UFH Level to once every 24 hours with A.M. labs while on heparin. RN to order required Heparin UFH Level - Per Protocol, Routine 1914 (New Bag - Provider: Arturo Morris RN) 0043 (Rate/Dose Change - Provider: Arturo Morris RN)1221 (Rate/Dose Verify - Provider: Fabienne Morelos RN)1522 (New Bag - Provider: Fabienne Morelos RN) 1041 (OCT Hold - Provider: Admin Adt - Reason: Transfer to a Procedural area)1148 ([facility] Unhold - Provider: Maricel Pereyra RN) PRN Medication Order 2021 06/09/2021 06/10/2021 dextrose 10% infusion(Linked Group 5) 250 mL, at 1,000 mL/hr, Intravenous, EVERY 30 MIN PRN, Starting on 06/08/21 at 2110, Until Thu06/10/21 at 2028, For BG 50-70 mg/dL: Oral treatment preferred: If able to drink, give 120 mL Juice or Regular (not diet) soda OR If NPO, give 15 gram glucose 40% oral gel massaged into buccal mucosa OR if unconscious or uncooperative, give 25 gram (250 mL) Dextrose 10% IV over 15 minutes per protocol OR, if no IV access, 1 mg Glucagon IM. For BG less than 50 mg/dL: Oral treatment preferred: If able to drink, give 240 mL Juice or Regular (not diet) soda OR If NPO, give 30 gram glucose 40% oral gel massaged in buccal mucosa OR if unconscious or uncooperative, give 25 gram (250 mL) Dextrose 10% IV over 15 minutes per protocol OR, if no IV access, 1 mg Glucagon IM. Recheck BG in 30 minutes. May repeat juice/soda, gel, dextrose or glucagon once per episode. For persistent hypoglycemia, consider longer-acting treatment for the duration of the active insulin. 1041 (OCT Hold - Pro vider: Admin Adt - Reason: Transfer to a Procedural area)1224 ([facility] Unhold - Provider: Admin Adt) fentaNYL (pf) (50 mcg/mL) multi-dose injection (CANCELED) ONCE PRN, Starting on 06/10/21 at 1054, Until Thu06/10/21 at 1148, Intra-Operative (Intra-Procedure), Routine 1054 (Given - Provid er: Naye Song RN) glucagon (Glucagen) (1 mg/mL) injection solution 1 mg(Linked Group 5) 1 mg, Intramuscular, EVERY 30 MIN PRN, Starting on 06/08/21 at 2110, Until Thu06/10/21 at 2028, Low blood sugar, For BG 50-70 mg/dL: Oral treatment preferred: If able to drink, give 120 mL Juice or Regular (not diet) soda OR If NPO, give 15 gram glucose 40% oral gel massaged into buccal mucosa OR if unconscious or uncooperative, give 25 gram (250 mL) Dextrose 10% IV over 15 minutes per protocol OR, if no IV access, 1 mg Glucagon IM. For BG less than 50 mg/dL: Oral treatment preferred: If able to drink, give 240 mL Juice or Regular (not diet) soda OR If NPO, give 30 gram glucose 40% oral gel massaged in buccal mucosa OR if unconscious or uncooperative, give 25 gram (250 mL) Dextrose 10% IV over 15 minutes per protocol OR, if no IV access, 1 mg Glucagon IM. Recheck BG in 30 minutes. May repeat juice/soda, gel, dextrose or glucagon once per episode. For persistent hypoglycemia, consider longer-acting treatment for the duration of the active insulin., Routine 1041 (MAR Hold - Pro vider: Admin Adt - Reason: Transfer to a Procedural area)1224 (MAR Unhold - Provider: Admin Adt) glucose (GLUTOSE) 40% oral geL(Linked Group 5) 15-30 g, Buccal, EVERY 30 MIN PRN, Starting on 06/08/21 at 2110, Until 06/10/21 at 2028, Low blood sugar, For BG 50-70 mg/dL: Oral treatment preferred: If able to drink, give 120 mL Juice or Regular (not diet) soda OR If NPO, give 15 gram glucose 40% oral gel massaged into buccal mucosa OR if unconscious or uncooperative, give 25 gram (250 mL) Dextrose 10% IV over 15 minutes per protocol OR, if no IV access, 1 mg Glucagon IM. For BG less than 50 mg/dL: Oral treatment preferred: If able to drink, give 240 mL Juice or Regular (not diet) soda OR If NPO, give 30 gram glucose 40% oral gel massaged in buccal mucosa OR if unconscious or uncooperative, give 25 gram (250 mL) Dextrose 10% IV over 15 minutes per protocol OR, if no IV access, 1 mg Glucagon IM. Recheck BG in 30 minutes. May repeat juice/soda, gel, dextrose or glucagon once per episode. For persistent hypoglycemia, consider longer-acting treatment for the duration of the active insulin. 1 tube contains 15 grams of glucose (net weight of tube = 37.5 grams., Routine 1041 ([facility] Hold - Pro vider: Admin Adt - Reason: Transfer to a Procedural area)1224 ([facility] Unhold - Provider: Admin Adt) heparin (porcine) (1,000 units/mL) injection (CANCELED) ONCE PRN, Starting on Thu06/10/21 at 1122, Until Thu06/10/21 at 1147, Cath (Intra-Procedure), Routine 1122 (Given - Provid er: Naye Song RN)1132 (Given - Provider: Naye Song RN) iohexoL (Omnipaque) (350 mg/mL) injection solution (CANCELED) ONCE PRN, Starting on 06/10/21 at 1145, Until Thu06/10/21 at 1147, Cath (Intra-Procedure), Routine 1145 (Given - Provid er: Jose Damon MD - Comment: Contrast in Room [employer]) lidocaine (Xylocaine) 1% (10 mg/mL) injection 3 mg 3 mg (0.3 mL), Subcutaneous, ONCE PRN, 1 dose, Starting on 06/08/21 at 1909, Until Thu06/10/21 at 2029, for discomfort with PIV insertion, Routine 1041 ([facility] Hold - Pro vider: Admin Adt - Reason: Transfer to a Procedural area)1224 ([facility] Unhold - Provider: Admin Adt) lidocaine (Xylocaine) 1% (10 mg/mL) injection (CANCELED) ONCE PRN, Starting on Thu06/10/21 at 1100, Until Thu06/10/21 at 1147, Cath (Intra-Procedure), Routine 1100 (Given - Provid er: Syed Solorio MD) midazolam (pf) (Versed) (1 mg/mL) multi-dose injection (CANCELED) ONCE PRN, Starting on Thu06/10/21 at 1054, Until Thu06/10/21 at 1147, Cath (Intra-Procedure), Routine 1054 (Given - Provid er: Naye Song RN) nitroGLYcerin (Nitrostat) disintegrating tablet 0.4 mg 0.4 mg, Sublingual, EVERY 5 MIN PRN, Starting on 06/08/21 at 1909, Until Thu06/10/21 at 2028, Chest pain, May repeat every 5 minutes for a total of three doses. Notify provider if chest pain not relieved with nitroglycerin. Do not administer nitroglycerin if the patient has received or taken phosphodiesterase (PDE-5) inhibitors such as sildenafil, tadalafil or vardenafil within the last 24 to 72 hours., Routine 1041 (OCT Hold - Pro vider: Admin Adt - Reason: Transfer to a Procedural area)1224 ([facility] Unhold - Provider: Admin Adt) nitroGLYcerin 100 mcg/mL intracoronary dilution (CANCELED) ONCE PRN, Starting on Thu06/10/21 at 1116, Until Thu06/10/21 at 1147, Cath (Intra-Procedure), Routine 1116 (Given - Provid er: Syed Solorio MD - Comment: per Radial Protocol) sodium chloride 0.9 % (flush) (BD PosiFlush Normal Saline 0.9) flush 5-20 mL 5-20 mL, Intravenous, EVERY 1 MIN PRN, Starting on 06/08/21 at 1909, Until Thu06/10/21 at 2028, flush, Flush pertains to all indwelling lines. Flush per protocol found in the job aid using the link provided on this medication record., Routine 1041 (OCT Hold - Pro vider: Admin Adt - Reason: Transfer to a Procedural area)1224 ([facility] Unhold - Provider: Admin Adt) sodium chloride 0.9 % (flush) (BD PosiFlush Normal Saline 0.9) flush (CANCELED) ONCE PRN, Starting on Thu06/10/21 at 1119, Until Thu06/10/21 at 1147, Cath (Intra-Procedure), Routine 1119 (Given - Provid er: Naye Song RN - Comment: for mean AO of 76) sodium chloride 0.9% infusion (CANCELED) CONTINUOUS PRN, Starting on Thu06/10/21 at 1053, Until Thu06/10/21 at 1147, Cath (Intra-Procedure) 1053 (New Bag - Prov ider: Naye Song RN - Comment: Room Service [employer] Flush Line) verapamiL (Isoptin) (2.5 mg/mL) injection (CANCELED) ONCE PRN, Starting on 06/10/21 at 1116, Until 06/10/21 at 1147, Administer over 2 Minutes, Cath (Intra-Procedure) 1116 (Given - Provid er: Syed Solorio MD - Comment: per Radial Protocol) Linked Groups Order Group 1: POCT Fingerstick Glucose (CANCELED) Routine, EVERY 4 HOURS, First occurrence on 06/08/21 at 2115, Until Specified, Consider choosing EVERY 4 HOURS as frequency for: - Type 1 Diabetes - At least 24 hours after coming off an insulin drip - At least 24 hours after admission for DKA - Hypoglycemia unawareness - Patients who are otherwise unstable Select the same frequency for the correction bolus insulin order And insulin lispro (HumaLOG;Admelog) (100 unit/mL) subcutaneous injection vial 1-4 Units (CANCELED)Jump to med 1-4 Units, Subcutaneous, EVERY 4 HOURS SCHEDULED, First dose on 06/09/21 at 0000, Until Discontinued, CORRECTION BOLUS [1-4 Units] Sensitive Sliding Scale (BG in mg/dL): Correction factor 40 (1 unit of insulin is expected to drop the glucose 40 mg/dL) BG 160 - 200 Give 1 unit BG 201 - 240 Give 2 units BG 241 - 280 Give 3 units BG greater than 280, give 4 units and recheck BG in 2 hours. - If recheck BG is LESS than 280, give no insulin and resume schedule - If recheck BG is GREATER than 280, give 4 units and repeat BG in 2 hours (no more than 3 times) & call for new insulin orders. DO NOT hold if NPO, unless specifically directed to do so by written order. Per Blood Glucose Monitoring Policy, re-check a BG of > 240 mg/dL in 2 hours., Routine Group 2: POCT Fingerstick Glucose (CANCELED) Routine, EVERY 4 HOURS, First occurrence on 06/10/21 at 1600, Until Specified, Consider choosing EVERY 4 HOURS as frequency for: - Type 1 Diabetes - At least 24 hours after coming off an insulin drip - At least 24 hours after admission for DKA - Hypoglycemia unawareness - Patients who are otherwise unstable Select the same frequency for the correction bolus insulin order And insulin lispro (HumaLOG;Admelog) (100 unit/mL) subcutaneous injection vial 1-6 UnitsJump to med 1-6 Units, Subcutaneous, EVERY 4 HOURS SCHEDULED, First dose (after last modification) on Thu06/10/21 at 1600, Until Discontinued, CORRECTION BOLUS Custom BG 150 - 180 Give 1 units BG 181 - 210 Give 2 units BG 211 - 240 Give 3 units BG 241 - 270 Give 4 units BG greater than 270, give 5 units and recheck BG in 2 hours. If BG remains GREATER THAN 270, GIVE 5 units (no more than two times) & call for new basal insulin orders. If less than 270 after two hours, give no insulin and resume prior schedule. DO NOT hold if NPO, unless specifically directed to do so by written order. Per Blood Glucose Monitoring Policy, re-check a BG of > 240 mg/dL in 2 hours., Routine Group 3: vancomycin (Vancocin) 1.75 gram in sodium chloride 0.9% 500 mL infusion (CANCELED)Jump to med 1,750 mg, Intravenous, at 250 mL/hr, EVERY 12 HOURS, First dose on Thu06/08/21 at 2100, Until Discontinued, Maximum infusion rate is 1 gram/hour. If flushing of the face, neck, upper body, arms, and/or back occurs decrease infusion rate by 50% to reduce the severity of symptoms. This medication may have an associated drug lab level. Please see MAR for scheduled level. Warning Vesicant/Irritant Medication , Routine And Vancomycin, trough (CANCELED) New collection, Timed, PRN, Starting on 06/08/21 at 2002, Until Specified And Vancomycin Level - MAR Order Reminder (CANCELED) NOT APPLICABLE, PER PHARMACY, Other, Starting on 06/08/21 at 2002, Until 06/08/21 at 2018, This alert will be scheduled by a pharmacist after order placement. This order is a reminder to nursing staff to release and draw the PRN drug level at the specified time. It may be necessary to contact phlebotomy 60 minutes prior to the scheduled due time to assure a timely blood draw. Group 4: heparin (porcine) (1,000 units/mL) injection 0-4,000 Units (CANCELED) 0-4,000 Units, Intravenous, BOLUS PER HEPARIN PROTOCOL, Starting on 06/08/21 at 2001, Until Thu06/10/21 at 1148, Per Protocol, START ADJUSTMENT SCHEDULE 6 HOURS AFTER STARTING INFUSION Heparin UFH Level between 0.1 - 0.29 IU/mL: Bolus 2,000 units Heparin UFH Level less than 0.1 IU/mL: Bolus 4,000 units, Routine And heparin (porcine) 50 units/mL in sodium chloride 0.45% 500 mL infusion (CANCELED)Jump to med 0-5,000 Units/hr (0-100 mL/hr), Intravenous, CONTINUOUS, Starting on 06/08/21 at 2100, Until 06/10/21 at 1148, BEGIN infusion at 1,000 units per hr (12 units/kg/hr). MAX INITIAL infusion rate is 1,000 units/hr. Target Heparin UFH Level (anti-Xa activity) = 0.3 - 0.7 IU/mL Start adjustment schedule 6 hours after starting infusion. If Heparin UFH Level is: - less than 0.1 IU/mL, administer PRN bolus and increase rate by 450 units per hr (4 units/kg/hr) - 0.1 - 0.29 IU/mL, administer PRN bolus and increase rate by 250 units per hr (2 units/kg/hr) - 0.3 - 0.7 IU/mL, No Change - 0.71 - 0.85 IU/mL, decrease rate by 100 units per hr (1 units/kg/hr) - 0.86 - 1.05 IU/mL, stop infusion for 30 minutes, then decrease rate by 250 units per hr (2 units/kg/hr) - Greater than 1.05 IU/mL, stop infusion for 60 minutes, then decrease rate by 350 units per hour (3 units/kg/hr) Repeat Heparin UFH Level 6 hours after initiating heparin. Then 6 hours after each dose adjustment. When 2 consecutive Heparin UFH Level within target range of 0.3 - 0.7 IU/mL, change Heparin UFH Level to once every 24 hours with A.M. labs while on heparin. RN to order required Heparin UFH Level - Per Protocol, Routine Group 5: glucose (GLUTOSE) 40% oral geLJump to med 15-30 g, Buccal, EVERY 30 MIN PRN, Starting on 06/08/21 at 2110, Until 06/10/21 at 2029, Low blood sugar, For BG 50-70 mg/dL: Oral treatment preferred: If able to drink, give 120 mL Juice or Regular (not diet) soda OR If NPO, give 15 gram glucose 40% oral gel massaged into buccal mucosa OR if unconscious or uncooperative, give 25 gram (250 mL) Dextrose 10% IV over 15 minutes per protocol OR, if no IV access, 1 mg Glucagon IM. For BG less than 50 mg/dL: Oral treatment preferred: If able to drink, give 240 mL Juice or Regular (not diet) soda OR If NPO, give 30 gram glucose 40% oral gel massaged in buccal mucosa OR if unconscious or uncooperative, give 25 gram (250 mL) Dextrose 10% IV over 15 minutes per protocol OR, if no IV access, 1 mg Glucagon IM. Recheck BG in 30 minutes. May repeat juice/soda, gel, dextrose or glucagon once per episode. For persistent hypoglycemia, consider longer-acting treatment for the duration of the active insulin. 1 tube contains 15 grams of glucose (net weight of tube = 37.5 grams., Routine Or dextrose 10% infusionJump to med 250 mL, at 1,000 mL/hr, Intravenous, EVERY 30 MIN PRN, Starting on 06/08/21 at 2110, Until 06/10/21 at 2028, For BG 50-70 mg/dL: Oral treatment preferred: If able to drink, give 120 mL Juice or Regular (not diet) soda OR If NPO, give 15 gram glucose 40% oral gel massaged into buccal mucosa OR if unconscious or uncooperative, give 25 gram (250 mL) Dextrose 10% IV over 15 minutes per protocol OR, if no IV access, 1 mg Glucagon IM. For BG less than 50 mg/dL: Oral treatment preferred: If able to drink, give 240 mL Juice or Regular (not diet) soda OR If NPO, give 30 gram glucose 40% oral gel massaged in buccal mucosa OR if unconscious or uncooperative, give 25 gram (250 mL) Dextrose 10% IV over 15 minutes per protocol OR, if no IV access, 1 mg Glucagon IM. Recheck BG in 30 minutes. May repeat juice/soda, gel, dextrose or glucagon once per episode. For persistent hypoglycemia, consider longer-acting treatment for the duration of the active insulin. Or glucagon (Glucagen) (1 mg/mL) injection solution 1 mgJump to med 1 mg, Intramuscular, EVERY 30 MIN PRN, Starting on 06/08/21 at 2110, Until 06/10/21 at 2028, Low blood sugar, For BG 50-70 mg/dL: Oral treatment preferred: If able to drink, give 120 mL Juice or Regular (not diet) soda OR If NPO, give 15 gram glucose 40% oral gel massaged into buccal mucosa OR if unconscious or uncooperative, give 25 gram (250 mL) Dextrose 10% IV over 15 minutes per protocol OR, if no IV access, 1 mg Glucagon IM. For BG less than 50 mg/dL: Oral treatment preferred: If able to drink, give 240 mL Juice or Regular (not diet) soda OR If NPO, give 30 gram glucose 40% oral gel massaged in buccal mucosa OR if unconscious or uncooperative, give 25 gram (250 mL) Dextrose 10% IV over 15 minutes per protocol OR, if no IV access, 1 mg Glucagon IM. Recheck BG in 30 minutes. May repeat juice/soda, gel, dextrose or glucagon once per episode. For persistent hypoglycemia, consider longer-acting treatment for the duration of the active insulin., Routine documented in this encounter Care Teams Stone Setter Apprentice Relationship Specialty Start Date End Date Coni Lim MD [address] [place] [address] PCP - General 07/16/10 documented as of this encounter
--- OUTSIDE RECORDS SUMMARY | 2024-04-30 13:39 | XMS_ITS | Encounter Summary ---
Author Organization [facility] Address [facility] [place] [address] Care Team Providers Care Gas Combustion Engineer Name Role Phone Coni Lim MD Primary Care Provider [phone] Encounter Details Date Type Department Care Team (Late st Contact Info) Description 04/07/2023 7:30 PM EDT Ancillary [place] [address] Patel Griggs MD [facility] [place] [address] Social History Tobacco Use Types Packs/Day Years [...] ONLY CT HEAD AND SPINE Routine 04/07/2023 7:22 PM EDT documented in this encounter Results * Film Library- Storage Only CT Head And Spine (04/07/2023 7:22 PM EDT) Narrative [facility] - 04/07/2023 7:22 PM EDT This exam is auto-finalizing. It's purpose is for storage only. Patel M Thadani MD [facility] FILM LIBRARY ORD ERABLES [place], [place] documented in this encounter Visit Diagnoses Not on filedocumented in this encounter Care Teams Gas Combustion Engineer Relationship Specialty Start Date End Date Coni Lim MD [address] [place] [address] PCP - General 07/16/10 documented as of this encounter
--- OUTSIDE RECORDS SUMMARY | 2024-04-30 13:39 | XMS_ITS | Encounter Summary ---
Author Organization [facility] Address [facility] [place] [address] Care Team Providers Care Food Stylist Name Role Phone Coni Lim MD Primary Care Provider [phone] Encounter Details Date Type Department Care Team (Late st Contact Info) Description 04/07/2023 7:35 PM EDT Ancillary Procedure [place] [address] Patel Griggs MD [facility] [place] [address] Social History Tobacco Use Types Packs/Day Years [...] Diagnosis Comments FILM LIBRARY STORAGE ONLY CT CHEST ABDOMEN PELVIS Routine 04/07/2023 7:23 PM EDT documented in this encounter Results * Film Library- Storage Only CT Chest Abdomen Pelvis (04/07/2023 7:23 PM EDT) Narrative [facility] - 04/07/2023 7:23 PM EDT This exam is auto-finalizing. It's purpose is for storage only. Patel M Thadani MD [facility] FILM LIBRARY ORD ERABLES [place], [place] documented in this encounter Visit Diagnoses Not on filedocumented in this encounter Care Teams Food Stylist Relationship Specialty Start Date End Date Coni Lim MD [address] [place] [address] PCP - General 07/16/10 documented as of this encounter
--- OUTSIDE RECORDS SUMMARY | 2024-04-30 13:39 | XMS_ITS | Encounter Summary ---
Author Organization [facility] Address [facility] [place] [address] Care Team Providers Care Bank Representative Name Role Phone Coni Lim MD Primary Care Provider Encounter Details Date Type Department Care Team (Late st Contact Info) Description 01/13/2022 Ancillary Procedure [place] [address] Cecilia Maza MD [facility] [place] [address] Social History Tobacco Use Types Packs/Day Years [...] Associated Diagnosis Comments FILM LIBRARY STORAGE ONLY ULTRASOUND STUDY Routine 01/13/2022 12:00 AM EDT documented in this encounter Results * Film Library- Storage Only Ultrasound Study (01/13/2022 12:00 AM EDT) Narrative [facility] - 02/25/2022 4:21 PM EDT This exam is auto-finalizing. It's purpose is for storage only. Cecilia Maza MD IMG FILM LIBRARY ORDERABLES [facility] [place], [place] documented in this encounter Visit Diagnoses Not on filedocumented in this encounter Care Teams Bank Representative Relationship Specialty Start Date End Date Coni Lim MD [address] [place] [address] PCP - General 07/16/10 documented as of this encounter
--- OUTSIDE RECORDS SUMMARY | 2024-04-30 13:39 | XMS_ITS | Encounter Summary ---
[place] [address] Care Team Providers Care Referral Rn Name Role Phone Coni Lim MD Primary Care Provider [phone] Reason for Referral * Consultation (Routine) - Closed Specialty Diagnoses / Procedures Referred By Ruby garvin Referred To Contact General Surgery Diagnoses Nontoxic single thyroid nodule Kevin Landaverde MD [address] [place] [address] [facility] Gen Surgery [address] [place] [address] Referral ID Status Reason Start Date Expiration Date V isits Requested Visits Authorized [id number] Closed Consult, Test & Treat 01/30/2022 01/30/2023 1 1 Encounter Details Date Type Department Care Team (Late st Contact Info) Description 01/30/2022 Transcribe Orders [place] [phone] Kevin Landaverde MD [address] [place] [address] [place], [place] [id number] Nontoxic single thyroid nodule Social History Tobacco Use Types Packs/Day Years [...] Associated Diagnoses Orde r Schedule Referral to General Surgery Outpatient Referral Routine Nontoxic single thyroid nodule Ordered: 01/30/2022 documented as of this encounter Visit Diagnoses Diagnosis 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
--- OUTSIDE RECORDS SUMMARY | 2024-04-30 13:39 | XMS_ITS | Encounter Summary ---
Author Organization [facility] Address [facility] [place] [address] Care Team Providers Care Microarray Analyst Name Role Phone Coni Lim MD Primary Care Provider [phone] Encounter Details Date Type Department Care Team (Late st Contact Info) Description 11/22/2021 Ancillary Procedure [place] [address] Cecilia Maza MD [facility] [place] [address] Social History Tobacco Use Types Packs/Day Years [...] FILM LIBRARY STORAGE ONLY ULTRASOUND STUDY Routine 11/22/2021 12:00 AM EDT documented in this encounter Results * Film Library- Storage Only Ultrasound Study (11/22/2021 12:00 AM EDT) Narrative [facility] - 02/25/2022 4:20 PM EDT This exam is auto-finalizing. It's purpose is for storage only. Cecilia Maza MD IMG FILM LIBRARY ORDERABLES [facility] [place], [place] documented in this encounter Visit Diagnoses Not on filedocumented in this encounter Care Teams Microarray Analyst Relationship Specialty Start Date End Date Coni Lim MD [address] [place] [address] PCP - General 07/16/10 documented as of this encounter
--- OUTSIDE RECORDS SUMMARY | 2024-04-30 13:40 | XMS_ITS | Encounter Summary ---
Author Organization [facility] Address [facility] [place] [address] Care Team Providers Care Paper Final Inspector Name Role Phone Coni Lim MD Primary Care Provider [phone] Reason for Visit * Consultation (Routine) - Closed Specialty Diagnoses / Procedures Referred By Ruby garvin Referred To Contact Ophthalmology Diagnoses inflammed caruncle od Darjee, Jaymal, OD [address] [place] [address] Keeley Paredes MD [facility] [place] [address] Referral ID Status Reason Start Date Expiration Date V isits Requested Visits Authorized [id number] Closed Consult, Test & Treat 09/28/2019 09/27/2020 1 1 Encounter Details Date Type Department Care Team (Late st Contact Info) Description 05/24/2020 10:15 AM EDT Office [place] [address] Keeley Paredes MD [facility] [place] [address] Conjunctival lesion Social History Tobacco Use Types Packs/Day Years [...] on file documented as of this encounter Progress Notes * Keeley Paredes MD - 05/24/2020 10:15 AM EDT Images from the original note were not included. Encounter Diagnosis Name Primary? Conjunctival lesion Romeo Coe, a 54 y.o. male with the following problem(s): 1. Right caruncle lesion: recommend biopsy. - Discussed risks, benefits, and alternatives including bleeding, infection, recurrence, and need for additional surgery. - Findings and concerns discussed with Romeo and he expressed understanding. FOLLOW UP - same day MSO Photo(s) taken by Keeley Paredes MD with patient's verbal permission for use for clinical and education purposes documented in this encounter Plan of Treatment Not on file documented as of this encounter Procedures Procedure Name Priority Date/Time Associated Diagnosis Comments EXTERNAL PHOTOGRAPHY - OD - RIGHT EYE Routine 05/24/2020 10:57 AM EDT Conjunctival lesion documented in this encounter Results * External Photography - OD - Right Eye (05/24/2020 10:57 AM EDT) Anatomical Region Laterality Modality Other Narrative 05/24/2020 10:57 AM EDT Caruncle lesion Keeley Paredes MD OPHTHALMOLOGY SERVIC ES ORDERABLES documented in this encounter Visit Diagnoses Diagnosis Conjunctival lesion Unspecified disorder of conjunctiva documented in this encounter Care Teams Paper Final Inspector Relationship Specialty Start Date End Date Coni Lim MD [address] [place] [address] PCP - General 07/16/10 documented as of this encounter
--- OUTSIDE RECORDS SUMMARY | 2024-04-30 13:40 | XMS_ITS | Encounter Summary ---
Author Organization [facility] Address [facility] [place] [address] Care Team Providers Care Chicken Tender Name Role Phone Coni Lim MD Primary Care Provider [phone] Reason for Visit * Auth/Cert Specialty Diagnoses / Procedures Referred By Ruby garvin Referred To Contact Diagnoses Unstable angina Chest pain Procedures EMERGENCY IPI Referral ID Status Reason Start Date Expiration Date Visits Re quested Visits Authorized [id number] 1 1 Encounter Details Date Type Department Care Team (Late st Contact Info) Description 2021 7:02 PM EDT - 06/10/2021 6:29 PM EDT Hospital Encounter Inter[place] [id number] Zuleyka Hodgson MD [facility] [place] [address] Supa Alegria MD [facility] [place] [address] Chest pain, unspecified type Discharge Disposition: Home Social History Tobacco Use Types Packs/Day Years [...] PM EDT Discharge Summary Patient Name: Romeo Coe Patient Age: 56 y.o. Language: Armenian Race: White Ethnicity: Not nor Admit date: 2021 Discharge date and time: 06/10/2021 5:40 PM Attending Physician: Supa Alegria MD Discharge Physician: Supa Alegria MD Follow-up Recommendations for Providers: Romeo Coe is a 56 year old male admitted for chest pain concerning for unstable angina. 1. ASCVD / Microvascular angina: [facility] 06/10/21 without obstructive CAD and with patent [...] Escobar APRN Sarah Hansen, PA-C Cardiovascular Medicine [phone] Discharge Diagnoses (Hospital Problems) and Secondary Diagnoses (Chronic Problems): Active Hospital Problems Diagnosis ??? Unstable angina ??? Chest pain ??? Smoker ??? CAD (coronary artery disease) ??? Dyslipidemia ??? HTN (hypertension) ??? DM (diabetes mellitus) Resolved Hospital Problems No resolved problems to display. Active Non-Hospital Problems Diagnosis ??? Hx-TIA (transient ischemic attack) ??? GERD (gastroesophageal reflux disease) ??? Conjunctival lesion Operations/Major Procedures: [facility] 06/10/21 Hemodynamics: Left Heart Pressures Resting: Syst [...] 2011, LAD stent in 2012, RCA stent [id number]. His most recent coronary angiogram (2019) showed [...] since 2011 and last JACINDA to RCA [id number]. Last LHC 2019 with residual ~40% LAD and RCA Romeo Coe is a 56 y.o. male with a past medical history of CAD s/p multiple PCIs, mLAD and pOM1 in 2012,??mLAD in 2012, RCA in 2017, most recent [...] SOB prior to discharge. Follow up with spray worker, Dr. Gutierrez, was arranged. ?? Right??groin cellulitis, abscess with spontaneous drainage Patient noted to have right groin erythema consistent with cellulitis. He remained afebrile and without leukocytosis. Blood cultures obtained at OSH were NGTD at 2 days (spoke with microbiology at [facility] on 06/10/21). These were repeated at 06/08 [...] CTA chest was made. ?? Diabetes mellitus, flx-rcmdvrw-nprgddlmz, uncontrolled A1c of 9.4%. Home metformin held for cath. Additional coverage with sliding scale and meal associated insulin. Hold metformin for 48 hours after contrast exposure. Diabetes management team consulted.Recommendations to continue metformin 1000mg BID and further management per PCP. Could consider SGLT2i. ?? HTN BP trend 12 hours prior to discharge were BP: (102-134)/(65-81) . He was continued on home tferuyuh37.5mg daily, metoprolol succinate 100mg daily and Imdur [...] Studies and Lab Data: Blood cultures at [facility] and [facility]. Discharge Conditions/Prognosis: Alert and oriented x 3, ambulatory-independent. Ambulated without chest pain or SOB prior to discharge. Discharge to: Home. Updated Allergies/ADRs: Allergies Allergen Reactions ??? Thallium-201 Severe cardiac event ??? Lisinopril Other (See Comments) cough ??? Paper Tape [Adhesive Tape] Rash Immunizations Given this Hospitalization: Immunization History Administered Date(s) Administered ??? Influenza PF, Split 07/30/2013 ??? Influenza Vaccine (Novel) [id number], Injectable 05/24/2009 ??? Influenza Vaccine w/Preservative, Split [...] of 8AM-5PM please call the Cardiology Clinic [phone] to speak with a nurse. All other hours please call the Hospital Hand Screen Printer [phone] and ask to speak to the lab tech on-call. Return to work: One week Driving: [...] Time PCP COLEEN Wen [address] [place] [address] [phone] Jun 20 10:00am General Maintenance Helper Dr. Gutierrez [facility] Cardiology [phone] ThursdayJul 23 11:40am Discharge References/Attachments Angina (Armenian) Discussed with MD Coni Escobar PA-C Pager #[phone] 06/10/2021 documented in this encounter Discharge Instructions [...] of 8AM-5PM please call the Cardiology Clinic [phone] to speak with a nurse. All other hours please call the Hospital Hand Screen Printer [phone] and ask to speak to the lab tech on-call. Return to work: One week Driving: [...] Time PCP COLEEN Wen [address] [place] [address] Jun 20 10:00am General Maintenance Helper Dr. Gutierrez [facility] Cardiology [phone] ThursdayJul 23 11:40am * Patient Instructions* Coni Lew PA - 06/10/2021 3:07 PM EDT * Attachments The following attachments cannot be sent through Care Everywhere. * Angina (Armenian) documented in this encounter Medications at Time [...] MOUTH EVERY 4 TO 6 HOURS 05/18/2020 OneTouch Verio test strips Strip USE ONE [...] Transport initiated/not confirmed: Spoke with NOELLE from [facility] who initiated a ride with their scheduling department/dispatch to pick patient up at discharge 06/10/21 from the MAIN entrance at ~18:00 en route to HOME UPDATE 16:06 Discharge Transportation confirmed: Spoke with ELMIRA from [facility] who confirmed a flatbed driver provided by director transportationULISES will arrive to pick patient up at discharge 06/10/21 from the MAIN entrance at 18:00 en route to HOME. Bedside nurse notified via eDH chat. [facility] PHONE: [phone] * Supa Alegria MD - 06/10/2021 8:04 AM EDT Images from the original note were not included. Inpatient Cardiology Progress Note Patient Name: Romeo Coe Service: PHP MYSQL WEB DEVELOPER / PA Responsible Attending: Supa Alegria MD [...] nausea overnight,patient reports resolution. In agreement for [facility] today. Continues on IV antibiotics for concern [...] Affect: Mood normal. Lab Comments: Recent Labs 06/10/2134306/09/21 0550 06/08/211930 WBC 9.0 8.2 8.1 HGB 14.2 14.1 13.5* HCT 42.8 42.0 39.4* PLATELET 251 240 219 No results for input(s): INR in the last 168 hours. Recent Labs 06/10/2134306/08/21 193 NA 134* 133* K 4.1 4.0 CL 103 100 CO2 18* 22 BUN 9* 12 CREATININE 0.79* 0.73* No results for input(s): AST, ALT, ALKPHOS, BILITOT, BILIDIR in the last 168 hours. Recent Labs 06/10/2134306/08/211930 CALCIUM 9.4 9.3 Recent Labs 06/10/2134306/09/21 1747 06/09/21 1130 TROPONINT <0.01 <0.01 <0.01 [...] new inferior wall motion abnormality. Assessment: Romeo Coe is a 56 y.o. male with a [...] since 2011 and last JACINDA to RCA [id number]. Last LHC 2018 with residual ~40% LAD and RCA Troponin [...] chest at this time ?? Diabetes mellitus, suv-soiljcu-houuwqjxz, uncontrolled A1c of 9.4% Hold home metformin [...] Discussed with MD Coni Escobar PA-C Pager #[phone] 06/10/2021 Cardiology Attending Note I have seen and examined the patient. I agree with the findings above. Of note, he is feeling well today. His groin site shows no evidence of fluid collection. Blood cultures show no growth. We will proceed with coronary angiography and possible PCI Supa Alegria MD [facility] Total time spent on review of records [...] Inpatient Cardiology Progress Note Patient Name: Romeo Coe Service: PHP MYSQL WEB DEVELOPER / PA Responsible Attending: Supa Alegria MD Reason for continued hospitalization: Evaluation and management of unstable angina- cath Right groin cellulitis-IV abx Medication adjustment Active Problems: Active Hospital Problems Diagnosis ??? Unstable angina ??? Chest pain ??? Smoker ??? CAD (coronary artery disease) -Coronary Angio 07/29/2013: 65% (FFR 0.74) mid LAD lesion s/p PCI with 3.5 X 18 mm JACINDA - [facility] 2009 post abnormal nuc stress +IW, [...] place, and time. Lab Comments: Recent Labs 06/09/21 0550 06/08/211930 WBC 8.2 8.1 HGB 14.1 13.5* HCT 42.0 39.4* PLATELET 240 219 No results for input(s): INR in the last 168 hours. Recent Labs 06/08/211930 NA 133* K 4.0 CL 100 CO2 22 BUN 12 CREATININE 0.73* No results for input(s): AST, ALT, ALKPHOS, BILITOT, BILIDIR in the last 168 hours. Recent Labs 06/08/211930 CALCIUM 9.3 Recent Labs 06/09/21 0550 06/08/211930 TROPONINT <0.01 <0.01 Pertinent Radiographic/Diagnostic Results: No new tests Assessment: Romeo Coe is a 56 y.o. male past medical history of CAD, s/p multiple PCIs, mLAD and pOM1 in 2012, mLAD in 2012, RCA in 2017, most [...] CTA at this time ?? Diabetes mellitus, oqc-lsljlmf-neupforwd Poor control with A1c of 9.4 Carb [...] ?Routine Diet: Daily Healthy Menu Choices/Cardiac diet ([facility]-Diet) CHO counting level 2 DVT Prophylaxis: already [...] proceed tomorrow on antibiotics. Supa Alegria MD [facility] Total time spent on review of records prior to visit, face to face time with patient during visit, documentation, and coordination of care with other clinicians: 40 minutes. documented in this encounter H&P Notes * Isaiah Hoyos MD - 2021 8:18 PM EDT Images from the original note were not included. Cardiology H&P Patient info: Name: Romeo Coe : 1965 PCP: Coni Lim MD PCP phone number: [phone] Date of Admission: 2021 ( Hospital Day 0 days ) Attending:Zuleyka Hodgson MD Patient Active Problem List Diagnosis ??? ','Unstable angina ??? Chest pain ??? Smoker ??? CAD (coronary artery disease) Overview Note: -Coronary Angio 07/29/2013: 65% (FFR 0.74) mid LAD lesion s/p PCI with 3.5 X 18 mm JACINDA - [facility] 2009 post abnormal nuc stress +IW, EF normal - Recurrent angina, CCS class III - Cardiac catheterization 06/03/2012: 2 vessel CAD (LAD and LCX), +FFR of both lesions s/p PCI to pOM1 (3.0 x 18 mm Xience JACINDA) and mLAD (3.0 x 20 mm Promus Element JACINDA) ??? Hx-TIA (transient ischemic attack) Overview Note: 2003, residual numbness in R hand and [...] 2011, LAD stent in 2012, RCA stent in 2017. His most recent [...] of Onset ??? Myocardial Infarction Father 46 ID, CABG ??? Heart Disease Father ??? Diabetes [...] Lives with and daughter at home in [place], [place]. He is disabled now. He used [...] input(s): THROMBIN TIME Cardiac Enzymes Recent Labs 06/08/21 193 TROPONINT <0.01 Endocrine No results for input(s): TSH, CORTISOL in the last 7068 hours. Invalid input(s): [id number] No results for input(s): POCGLU in the last 168 hours. Heme No results for input(s): LDH, HAPTOGLOBIN, URICACID in the last 168 hours. ABG (Arterial Blood Gas) No results found for: PHART, PO2ART, YWG9KOP, ARL1SNT Microbiology: Microbiology Results (Last 30 days) No [...] (porcine) AND heparin (porcine) infusion Recent diagnostics: [facility] (2019): Left Main The left main was [...] significant valve disease. Assessment & Plan: Romeo Coe is a 56 y.o. male w/ PMH [...] Obtain Echo - Serial cardiac enzymes - secured entrance monitor - Cardiac cath in a.m. - Check [...] infection. No hypoxia or tachycardia #Diabetes mellitus, yre-xrjtrjq-pspnkutjf, poor control with A1c of 9.4 -Diabetic [...] #Routine Diet: Daily Healthy Menu Choices/Cardiac diet ([facility]-Diet) 75/75/90 CHO counting level 3 DVT Prophylaxis: already on heparin drip Code Status: Attempt Cardiopulmonary Resuscitation - Inpatient Dispo: Pending clinical course Isaiah Hoyos MD Pager #[phone] 06/08/21 8:56 PM documented in this encounter [...] cath without complications. Coni Lew PA-C Pager #[phone] 06/10/2021 * Initial Assessments - Ruthie Macias RN - 06/10/2021 3:39 PM EDT Office of Care Management Initial Assessment Ruthie Macias RN reviewed record and discussed patient with Care Team. Source of Information: Team, bedside nurse, medical record, and Patient Introduced self/reviewed role; services accepted. Reason for Hospitalization: unstable angina Last COVID test: Lab Results Component Value Date [id number] Not Detected 06/09/2021 Past medical History: Past [...] AD's have not been completed pts Dasia dyer would be surrogate decision maker per [place] surrogatedecision making law. (Only good for 180 days) Any patient receiving care at [facility] must abide by [place] law. The hierarchy for surrogate decision making [...] (i) The agent with financial power of sports attorney or a conservator appointed in accordance [...] cane - straight Home Address confirmed as: [address] [place] [id number] Social & Family Supports: All names listed below confirmed with patient as current and correct Extended Emergency Contact Information Primary Emergency Contact: Dasia Coe Address: [address] [place] [address] Mobile Relation: Spouse Current Care Provided by: [...] MEDICAID [place] Prescription Coverage: Yes Preferred Pharmacy: [facility] [place], [place] - [address] [place] [address] [address] [facility] [address] [place] Status: Patient is a : No Primary Care Provider: Coni Lim MD [phone] Patient/Caregiver Goals of Treatment: dc to home [...] ambulation, driving. He drove his car to [facility] and then required a BLS to transport here to [facility]. He will require assistance in finding A ride to home when he is dced. Pt has supports in place to accessthe necessary care and or follow up after dishcharge and there are no RN CM or ELECTRICAL AND INSTRUMENT TECHNICIAN needs that are identified at this time Plan: dc to home A member of the Care Management team will continue to monitor progress, follow for continuity of care and assist with transition of care planning. Ruthie Macias RN CM [phone] Pager [phone] * Consult Note - Elena Zaragoza APRN - 06/10/2021 12:07 PM EDT Diabetes Management Team Inpatient Consult Date of Consultation: 06/10/2021 Consult Requested by: Cardiology Reason for Consultation: Romeo Coe is a 56 y.o. 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 We are being consulted to assist with diabetes management and to provide a review of joint terminal attack controller diabetes care. Diabetes History: Romeo Coe has had diabetes for about 8 years. He was diagnosed during routine blood testing by his PCP. Denies having any symptoms at time of diagnosis. He takes metformin only, hasn't discussed additional medications with PCP previously as historically A1c has been 6-7. Lives in [facility] with Dasia. States the last few months [...] QPM ??? [OCT Hold] Vancomycin Level - [facility] Order Reminder NOT APPLICABLE Once ??? [OCT Hold] insulin lispro 0-8 Units Subcutaneous TID WC ??? [OCT Hold] vancomycin 1,750 mg Intravenous Q12H ??? [OCT Hold] insulin lispro 1-6 Units Subcutaneous Q4H [...] of Onset ??? Myocardial Infarction Father 46 ID, CABG ??? Heart Disease Father ??? Diabetes [...] 10 gm carb ratio for each meal) halfway diabetes care: Medications - Outpatient treatment regimen recommendations pending based on the hospital course. Monitoring - continue BG tid ac & hs Diet - low fat/low carb diet Exercise - weight-bearing exercise 30 min/day, as tolerated Thank you for allowing us to provide care for your patient Elena Zaragoza APRN Endocrinology Pager [phone] minutes of this 80 minute visit was spent with the patient in counseling on diabetes and treatment plan, reviewing all glucose and insulin data as well as relevant laboratory results with the patient, and coordination of care on the inpatient unit * Brief Op Note - Jose Trimble MD - 06/10/2021 11:37 AM EDT Brief Operative Note Patient Name: Romeo Coe : [id number] MR#: [id number] Case Date: 06/10/2021 General Maintenance Helper: * Jose Trimble MD - Primary * Syed Solorio MD - Fellow Preoperative diagnosis: nstemi Postoperative diagnosis:NSTEMI with stable coronary anatomy Preliminary Cardiac Catheterization Procedure Note: Procedure(s) performed: Coronary Angiography, Left Heart Cath Baseline Frailty Assessment: Definitions from [place] Study of Health and Aging Clinical Frailty [...] Full report to follow. JOSE TRIMBLE MD drier Pager [phone] * Plan of Care - Fabienne Morelos RN - 06/09/2021 2:57 PM EDT OUTCOME EVALUATION NOTE: OUTCOME SUMMARY: A/O x4. VSS on RA. NSR on tele. Heparin gtt maintained per protocol.IV zosyn and vanc given per protocol. (see MAR). BG elevated, MD notified, insulin scale adjusted. PLAN MOVING FORWARD: BC results aquatic life laborer D/c planning INDIVIDUALIZED FALL PREVENTION INTERVENTIONS: Patient-specific [...] SOB reported, remains on room air overnight. [place] very nauseous after he went to the [...] further details. Isaiah Hoyos MD 2021 Pager [phone] documented in this encounter Plan of Treatment [...] 06/09/2021 5:50 AM EDT RAPID COVID-19 PCR ([facility]) Routine 06/09/2021 5:45 AM EDT POCT GLUCOSE [...] * POCT Glucose (06/10/2021 4:20 PM EDT) [facility] Glucose, POC 177 65 - 199 mg/dL [facility] Comment: Supplemental ranges: <140 mg/dL before meals <180 mg/dL all other times of the day Blood 06/10/2021 4:20 PM EDT 06/10/2021 4:20 PM EDT Supa Alegria MD POINT OF CARE TEST O RDERABLES [facility] [place] [address] * Troponin (06/10/2021 1:07 PM EDT) [facility] Troponin-T <0.01 0.00 - 0.00 ng/mL [facility] Comment: The 99th percentile for Troponin T is less than 0.01 ng/mL, any detectable cTnT concentration using this assay should be considered elevated. According to the third universal definition of myocardial infarction the following criteria with a clinical presentation consistent with acute myocardial ischemia meets the diagnosis for a myocardial infarction (ID). Detection of a rise and/or fall of cTnT, with at least one value greater than the 99th percentile (> or = 0.01) and with at least one of the following ?? Symptoms of ischemia ?? New or presumed new significant ZV-pcqiinn-A wave (ST-T) changes or new left bundle [...] additional sample may be indicated. Reference: Third [place] Definition of Myocardial Infarction. Journal of the [place] College of Cardiology 2012;60:1581-98 Blood 06/10/2021 1:07 PM EDT 06/10/2021 1:18 PM EDT Narrative Resulting Agency Comment Spec In Lab Isaiah Hoyos MD CHEMISTRY ORDERABLE S Performing Organization Address City/[facility]/ZIP Co de Phone Number [facility] [place] [address] * POCT Glucose (06/10/2021 11:58 AM EDT) Pathologist [facility] Glucose, POC 175 65 - 199 mg/dL [facility] Comment: Supplemental ranges: <140 mg/dL before meals <180 mg/dL all other times of the day Blood 06/10/2021 11:5 8 AM EDT 06/10/2021 11:58 AM EDT Supa Alegria MD POINT OF CARE TEST O RDERABLES [facility] [place] [address] * CARDIAC CATHETERIZATION (06/10/2021 11:45 AM EDT) Anatomical Region Laterality Modality Other Narrative 06/10/2021 12:54 PM EDT ?[facility] ? Cardiac Catheterization/Intervention Report ? Patient Name: Coe, Romeo A. ? Procedure Date: 06/10/2021 ? A #: [id number] ? Primary Physician: Trimble, Jose V ? Case #: [id number] ? File Name: [id number] ? Catheterization Order Number: [id number] ? [facility] ? Final Report [place], [place] ? Patient Name: ? Romeo Coe ? ID#: ?[id number] ? : ?1965 ? Procedure Date: ? June 10, 2021 ? Case #: ? [id number] ? Room: ? 5 ? Case Physician: ? Jose Trimble M.D. ? Start: ?11:15 ?Fellow: ? Syed Solorio M.D. ?Admission: ??2021 ? Referring Physician: ??Samuel Coello. ? Procedures: ?* Coronary Angiography ?* Left Heart Catheterization ?* Vascular Ultrasound ? History ?Romeo Coe is a 56 year old man. He [...] was ?designated as ASA Class II. [facility] clinical frailty scale is 2: [...] procedure was Urgent. The indication for ?the nitriles lab technician visit is worsening angina. Chest pain symptom [...] Procedure Note Jose Trimble MD - 06/10/2021 [facility] Cardiac Catheterization/Intervention Report Patient Name: Coe Romeo PopNatalie Procedure Date: 06/10/2021 A #: [id number] Primary Physician: Jose Trimble V Case #: [id number] File Name: [id number] Catheterization Order Number: [id number] [facility] FinalReport [place], [place] Patient Name: Romeo Leyva Laquita ID#:[id number] :1965 Procedure Date: June 10, 2021 Case #: [id number] Room: 5 Case Physician: Jose Trimble M.D. Start: 11:15 Fellow: Syed Solorio M.D. Admission:2021 Referring Physician: Lazaro Coello Procedures: * Coronary Angiography * Left Heart Catheterization * Vascular Ultrasound History Romeo Coe is a 56 year old man. He [...] was designated as ASA Class II. [facility] clinical frailty scale is 2:Well. [...] diagnostic procedure was Urgent. The indicationfor the nitriles lab technician visit is worsening angina. Chest pain symptomassessment [...] units of heparin were administered. A total dc902ao of Omnipaque were opened, 38cc of Omnipaque were administered hkb11nx of Omnipaque were wasted. Radiation: Fluoro time [...] * POCT Glucose (06/10/2021 7:59 AM EDT) Glucose, POC 191 65 - 199 mg/dL [facility] Comment: Supplemental ranges: <140 mg/dL before meals <180 mg/dL all other times of the day Blood 06/10/2021 7:59 AM EDT 06/10/2021 7:59 AM EDT Supa Alegria MD POINT OF CARE TEST O RDERABLES [facility] [place] [address] * (ABNORMAL) BMP w/fasting Glucose (06/10/2021 3:44 AM EDT) Glucose Fasting 195(H) 65 - 99 mg/dL [facility] Comment: ?Fasting* Glucose Interpretive Criteria Normal [...] of Diabetes Mellitus, Position Statement from the [place] Diabetes Association. ??Diabetes Care, Volume 33, Supplement 1, Aug 2009 Blood Urea Nitrogen 9(L) 10 - 20 mg/dL [facility] Creatinine 0.79(L) 0.80 - 1.50 mg/dL [facility] Sodium 134(L) 135 - 145 mmol/L [facility] Potassium 4.1 3.5 - 5.0 mmol/L [facility] Comment: Please note: ??Patients with WBC >100,000 may have falsely elevated Potassium levels. ??For accurate Potassium quantification in these patients send serum separator tube (gold top) for subsequent determinations. ??Contact the Clinical Chemistry Laboratory if there are any questions. Chloride 103 98 - 107 mmol/L [facility] Carbon Dioxide 18(L) 22 - 31 mmol/L [facility] Anion Gap 13 5 - 15 mmol/L [facility] Calcium 9.4 8.5 - 10.5 mg/dL [facility] Est Glomerular Filtration Rate 102 >=60 mL/min/1. 73 m?? [facility] Comment: This patient? s estimated glomerular [...] In Lab Coni GROVER CHEMISTRY ORDERABLE S [facility] [place] [address] * Troponin (06/10/2021 3:44 AM EDT) Troponin-T <0.01 0.00 - 0.00 ng/mL [facility] Comment: The 99th percentile for Troponin T is less than 0.01 ng/mL, any detectable cTnT concentration using this assay should be considered elevated. According to the third universal definition of myocardial infarction the following criteria with a clinical presentation consistent with acute myocardial ischemia meets the diagnosis for a myocardial infarction (ID). Detection of a rise and/or fall of cTnT, with at least one value greater than the 99th percentile (> or = 0.01) and with at least one of the following ?? Symptoms of ischemia ?? New or presumed new significant NH-eovfwvw-M wave (ST-T) changes or new left bundle [...] additional sample may be indicated. Reference: Third [place] Definition of Myocardial Infarction. Journal of the [place] College [employer] 2012;60:1581-98 Blood Venous Draw / Unknown 06/10/2021 3:44 AM EDT 06/10/2021 4:06 AM EDT Narrative Resulting Agency Comment Spec In Lab Isaiah Hoyos MD CHEMISTRY ORDERABLE S Performing Organization Address [facility] Co de Phone Number [facility] [place] [address] * Green Tube HOLD (06/10/2021 3:44 AM EDT) Green Hold Sample in lab. [facility] Blood Venous Draw / Unknown 06/10/2021 3:44 AM EDT 06/10/2021 4:03 AM EDT Isaiah Hoyos MD CHEMISTRY ORDERABLE S Performing Organization Address [facility] Co de Phone Number [facility] [place] [address] * POCT Glucose (06/10/2021 3:44 AM EDT) Glucose, POC 191 65 - 199 mg/dL [facility] Comment: Supplemental ranges: <140 mg/dL before meals <180 mg/dL all other times of the day Blood 06/10/2021 3:44 AM EDT 06/10/2021 3:44 AM EDT Supa Alegria MD POINT OF CARE TEST O RDERABLES Performing Organization Address [facility] Co de Phone Number [facility] [place] [address] * Heparin (unfractionated) Level (06/10/2021 3:44 AM EDT) [facility] UF Heparin 0.38 IU/mL [facility] Comment: Guidelines for therapeutic unfractionated heparin [...] MD HEMATOLOGY ORDERABL ES Performing Organization Address [facility]/ZIP Co de Phone Number [facility] [place] [address] * (ABNORMAL) Differential, Automated (06/10/2021 3:44 AM EDT) [facility] Neutrophil % 55.0 % [facility] Neutrophil Absolute 4.98 1.70 - 6.10 x10(3)/mc L [facility] Lymph % 29.1 % [facility] Lymphocytes Abs 2.6 0.9 - 3.2 x10(3)/[facility] Monocyte % 7.5 % [facility] Monocyte Abs 0.7 0.3 - 0.9 x10(3)/[facility] Eos % 5.9 % [facility] Eosinophils Abs 0.5(H) 0.0 - 0.4 x10(3)/[facility] Basophil % 1.1 % [facility] Baso Absolute 0.1 0.0 - 0.1 x10(3)/[facility] Immature Gran % 1.40 % [facility] Comment: Immature granulocytes(IG's)percentage and absolute count will include metamyelocytes, myelocytes, and promyelocytes. Blood smears from CBCs yielding IG's will be scanned manually for concordance. If this scan disagrees with the automated IG or if promyelocytes are noted, a manual differential will be performed. Immature Gran Absolute 0.13(H) 0.00 - 0.04 x10(3)/[facility] Blood 06/10/2021 3:44 AM EDT 06/10/2021 4:03 AM EDT Narrative Resulting Agency Comment Spec In Lab Isaiah Hoyos MD HEMATOLOGY ORDERABL ES [facility] [place] [address] * Hemogram (06/10/2021 3:44 AM EDT) White Blood Cell 9.0 4.0 - 9.5 x10(3)/[facility] LABORATORY Red Blood Cell 4.97 4.58 - 5.54 x10(6)/[facility]ORY Hemoglobin 14.2 13.7 - 16.5 g/dL [facility] Hematocrit 42.8 40.5 - 48.5 % [facility] Mean Cell Volume 86.1 82.9 - 93.[address] [facility] Mean Cell Hemoglobin 28.6 27.5 - 32.1 pg [facility] Mean Cell Hemoglobin Concentration 33.2 32.0 - 35.7 g/dL [facility] Platelet 251 145 - 357 x10(3)/[facility] LABORATORY RDW Standard Deviation 40.5 36.0 - 45.0 [facility]ORY RDW coefficient of variation 13.0 11.4 - 13.8 % [facility] Mean Platelet Volume 10.5 7.6 - 12.9 [facility]ORY NRBC% auto 0.0 % [facility] NRBC Absolute 0.000 0.000 - 0.000 x10(3)/[facility] Blood 06/10/2021 3:44 AM EDT 06/10/2021 4:03 AM EDT Narrative Resulting Agency Comment Spec In Lab Isaiah Hoyos MD HEMATOLOGY ORDERABL ES Performing Organization Address City/[facility]/ZIP Co de Phone Number [facility] [place] [address] * POCT Glucose (06/09/2021 11:57 PM EDT) Glucose, POC 147 65 - 199 mg/dL [facility] Comment: Supplemental ranges: <140 mg/dL before meals <180 mg/dL all other times of the day Blood 06/09/2021 11:5 7 PM EDT 06/09/2021 11:57 PM EDT Supa Alegria MD POINT OF CARE TEST O RDERABLES Performing Organization Address City/[facility]/ZIP Co de Phone Number [facility] [place] [address] * POCT Glucose (06/09/2021 8:06 PM EDT) Glucose, POC 193 65 - 199 mg/dL [facility] Comment: Supplemental ranges: <140 mg/dL before meals <180 mg/dL all other times of the day Blood 06/09/2021 8:06 PM EDT 06/09/2021 8:06 PM EDT Supa Alegria MD POINT OF CARE TEST O RDERABLES Performing Organization Address City/[facility]/ZIP Co de Phone Number [facility] [place] [address] * Troponin (06/09/2021 5:47 PM EDT) Troponin-T <0.01 0.00 - 0.00 ng/mL [facility] Comment: The 99th percentile for Troponin T is less than 0.01 ng/mL, any detectable cTnT concentration using this assay should be considered elevated. According to the third universal definition of myocardial infarction the following criteria with a clinical presentation consistent with acute myocardial ischemia meets the diagnosis for a myocardial infarction (ID). Detection of a rise and/or fall of cTnT, with at least one value greater than the 99th percentile (> or = 0.01) and with at least one of the following ?? Symptoms of ischemia ?? New or presumed new significant FZ-ddmfpyy-F wave (ST-T) changes or new left bundle [...] additional sample may be indicated. Reference: Third [place] Definition of Myocardial Infarction. Journal of the [place] College [employer]iology 2012;60:1581-98 Blood 06/09/2021 5:47 PM EDT 06/09/2021 6:02 PM EDT Narrative Resulting Agency Comment Spec In Lab Isaiah Hoyos MD CHEMISTRY ORDERABLE S Performing Organization Address [facility]/ZIP Co de Phone Number [facility] [place] [address] * (ABNORMAL) POCT Glucose (06/09/2021 4:40 PM EDT) Glucose, POC 200(H) 65 - 199 mg/dL [facility] Comment: Supplemental ranges: <140 mg/dL before meals <180 mg/dL all other times of the day Blood 06/09/2021 4:40 PM EDT 06/09/2021 4:40 PM EDT Supa Alegria MD POINT OF CARE TEST O RDERAAIRAM Performing Organization Address [facility] Co de Phone Number [facility] [place] [address] * (ABNORMAL) POCT Glucose (06/09/2021 3:02 PM EDT) Glucose, POC 209(H) 65 - 199 mg/dL [facility] Comment: Supplemental ranges: <140 mg/dL before meals <180 mg/dL all other times of the day Blood 06/09/2021 3:02 PM EDT 06/09/2021 3:02 PM EDT Supa Alegria MD POINT OF CARE TEST O BOBERAAIRAM Performing Organization Address [facility] Co de Phone Number [facility] [place] [address] * ECHO COMPLETE W CONTRAST (06/09/2021 1:52 PM EDT) Anatomical Region Laterality Modality Other 06/09/2021 Narrative 06/09/2021 2:16 PM EDT Procedure: ?Transthoracic Echocardiogram Patient: ?LAQUITA DOHERTY A ? (Age): 1965(56y) Med Rec#: ? [id number] ?Sex: ?M ? Site Loc: ? [facility] ?Ht / Wt: ??177(cm)/114(kg) Pt. Loc: ?[facility] ? BSA: ?2.29 Study Date: ?? 06/09/2021 ?Pt. Type: Inpatient Tape: ? Referring: ALTUJJARMOHAMMAD Reading: Zuleyka Hodgson ([id number]) General Maintenance Helper: Ortiz Sandoval Diagnosis: *Chest pain, unspecified (R07.9) [...] Vmax ?0.67 ? m/sec ? MV deceleration vocv556.55 ? msec ? MV A-wave Vmax ?0.48 [...] 06/09/2021 14:15:33 Images reviewed and interpretation verified [facility] Procedure Note Zuleyka Hodgson MD - 06/09/2021 Procedure: Transthoracic Echocardiogram Patient: LAQUITA Pop (Age): 1965(56y) Med Rec#: [id number] Sex: M Site Loc: [facility] Ht / Wt: 177(cm)/114(kg) Pt. Loc: [facility] BSA: 2.29 Study Date: 06/09/2021 Pt. Type: Inpatient Tape: Referring: ALTUJJARMOHAMMAD Reading: Zuleyka Hodgson ([id number]) General Maintenance Helper: Ortiz Sandoval Diagnosis: *Chest pain, unspecified (R07.9) [...] MV E-wave Vmax 0.67 m/sec MV deceleration [id number] msec MV A-wave Vmax 0.48 m/sec MV [...] 06/09/2021 14:15:33 Images reviewed and interpretation verified [facility] Isaiah Hoyos MD ECHO ORDERABLES * (ABNORMAL) POCT Glucose (06/09/2021 11:49 AM EDT) Glucose, POC 258(H) 65 - 199 mg/dL [facility] Comment: Supplemental ranges: <140 mg/dL before meals <180 mg/dL all other times of the day Blood 06/09/2021 11:4 9 AM EDT 06/09/2021 11:49 AM EDT Supa Alegria MD POINT OF CARE TEST O RDERABLES [facility] [place] [id number] * Troponin (06/09/2021 11:30 AM EDT) [facility] Troponin-T <0.01 0.00 - 0.00 ng/mL [facility] Comment: The 99th percentile for Troponin T is less than 0.01 ng/mL, any detectable cTnT concentration using this assay should be considered elevated. According to the third universal definition of myocardial infarction the following criteria with a clinical presentation consistent with acute myocardial ischemia meets the diagnosis for a myocardial infarction (ID). Detection of a rise and/or fall of cTnT, with at least one value greater than the 99th percentile (> or = 0.01) and with at least one of the following ?? Symptoms of ischemia ?? New or presumed new significant OB-gdbbhnz-E wave (ST-T) changes or new left bundle [...] additional sample may be indicated. Reference: Third [place] Definition of Myocardial Infarction. Journal of the [place] College [employer]iology 2012;60:1581-98 Blood 06/09/2021 11:3 0 AM EDT 06/09/2021 11:44 AM EDT Narrative Resulting Agency Comment Spec In Lab Isaiah Hoyos MD CHEMISTRY ORDERABLE S Performing Organization Address [facility] de Phone Number [facility] [place] [address] * Heparin (unfractionated) Level (06/09/2021 11:30 AM EDT) UF Heparin 0.32 IU/mL [facility] Comment: Guidelines for therapeutic unfractionated heparin [...] MD HEMATOLOGY ORDERABLE S Performing Organization Address [facility] Co de Phone Number [facility] [place] [address] * (ABNORMAL) POCT Glucose (06/09/2021 8:03 AM EDT) Glucose, POC 233(H) 65 - 199 mg/dL [facility] Comment: Supplemental ranges: <140 mg/dL before meals <180 mg/dL all other times of the day Blood 06/09/2021 8:03 AM EDT 06/09/2021 8:03 AM EDT Supa Alegria MD POINT OF CARE TEST O RDERABLES [facility] [place] [address] * (ABNORMAL) Differential, Automated (06/09/2021 5:50 AM EDT) Neutrophil % 56.8 % [facility] Neutrophil Absolute 4.64 1.70 - 6.10 x10(3)/ L [facility] Lymph % 27.0 % [facility] Lymphocytes Abs 2.2 0.9 - 3.2 x10(3)/ L [facility] Monocyte % 8.6 % [facility] Monocyte Abs 0.7 0.3 - 0.9 x10(3)/ L [facility] Eos % 5.6 % [facility] Eosinophils Abs 0.5(H) 0.0 - 0.4 x10(3)/ L [facility] Basophil % 0.9 % [facility] Baso Absolute 0.1 0.0 - 0.1 x10(3)/ L [facility] Immature Gran % 1.10 % [facility] Comment: Immature granulocytes(IG's)percentage and absolute count will include metamyelocytes, myelocytes, and promyelocytes. Blood smears from CBCs yielding IG's will be scanned manually for concordance. If this scan disagrees with the automated IG or if promyelocytes are noted, a manual differential will be performed. Immature Gran Absolute 0.09(H) 0.00 - 0.04 x10(3)/mc L [facility] Blood 06/09/2021 5:50 AM EDT 06/09/2021 6:06 AM EDT Narrative Resulting Agency Comment Spec In Lab Isaiah Hoyos MD HEMATOLOGY ORDERABL ES Performing Organization Address City/[facility]/ZIP Co de Phone Number [facility] [place] [address] * Hemogram (06/09/2021 5:50 AM EDT) White Blood Cell 8.2 4.0 - 9.5 x10(3)/[facility] LABORATORY Red Blood Cell 4.87 4.58 - 5.54 x10(6)/[facility]ORY Hemoglobin 14.1 13.7 - 16.5 g/dL [facility] Hematocrit 42.0 40.5 - 48.5 % [facility] Mean Cell Volume 86.2 82.9 - 93.1 [facility] Mean Cell Hemoglobin 29.0 27.5 - 32.1 [facility] Mean Cell Hemoglobin Concentration 33.6 32.0 - 35.7 g/dL [facility] Platelet 240 145 - 357 x10(3)/[facility] LABORATORY RDW Standard Deviation 40.7 36.0 - 45.0 [facility] RDW coefficient of variation 12.9 11.4 - 13.8 % [facility] Mean Platelet Volume 10.9 7.6 - 12.9 [facility] NRBC% auto 0.0 % [facility] NRBC Absolute 0.000 0.000 - 0.000 x10(3)/[facility] Blood 06/09/2021 5:50 AM EDT 06/09/2021 6:06 AM EDT Narrative Resulting Agency Comment Spec In Lab Isaiah Hoyos MD HEMATOLOGY ORDERABL ES Performing Organization Address City/[facility]/ZIP Co de Phone Number [facility] [place] [address] * Troponin (06/09/2021 5:50 AM EDT) Pathologist [facility] Troponin-T <0.01 0.00 - 0.00 ng/mL [facility] Comment: The 99th percentile for Troponin T is less than 0.01 ng/mL, any detectable cTnT concentration using this assay should be considered elevated. According to the third universal definition of myocardial infarction the following criteria with a clinical presentation consistent with acute myocardial ischemia meets the diagnosis for a myocardial infarction (ID). Detection of a rise and/or fall of cTnT, with at least one value greater than the 99th percentile (> or = 0.01) and with at least one of the following ?? Symptoms of ischemia ?? New or presumed new significant QK-iyjkaym-Y wave (ST-T) changes or new left bundle [...] additional sample may be indicated. Reference: Third [place] Definition of Myocardial Infarction. Journal of the [place] College [employer]iology 2012;60:1581-98 Blood 06/09/2021 5:50 AM EDT 06/09/2021 6:05 AM EDT Narrative Resulting Agency Comment Spec In Lab Isaiah Hoyos MD CHEMISTRY ORDERABLE S [facility] [place] [address] * Heparin (unfractionated) Level (06/09/2021 5:50 AM EDT) Pathologist [facility] UF Heparin 0.31 IU/mL [facility] Comment: Guidelines for therapeutic unfractionated heparin [...] MD HEMATOLOGY ORDERABL ES Performing Organization Address [facility] de Phone Number [facility] [place] [address] * Blood culture (06/09/2021 5:50 AM EDT) Blood Culture No growth at 5 days. [facility] Blood ANTECUBITAL REGION STRUCTURE / Unknown 06/09/2021 5:50 AM EDT 06/09/2021 10:08 AM EDT Comment:#1 Narrative Resulting Agency Comment Spec In Lab Isaiah Hoyos MD MICROBIOLOGY - BLOO D ORDERABLES Performing Organization Address [facility] de Phone Number [facility] [place] [address] * Lipid Panel (Reflex Direct LDL) (06/09/2021 5:50 AM EDT) Cholesterol, Total 207 mg/dL [facility] Comment: Lower Risk: <200 mg/dL Average Risk: 200-239 mg/dL Higher Risk: >zv=703 mg/dL Triglyceride 235 mg/dL [facility] Comment: Average Risk/Lower Risk: <150 mg/dL Borderline High Risk: 150-199 mg/dL High Risk: 200-499 mg/dL Very High Risk: >in=115 mg/dL HDL Cholesterol 29 mg/dL [facility] Comment: Males: ?? Higher Risk: <40 mg/dL Females: ?? Higher Risk: <50 mg/dL LDL Cholesterol 131 mg/dL [facility] Comment: Lowest Risk: <100 mg/dL Lower Risk: 100-129 mg/dL Borderline High Risk: 130-159 mg/dL High Risk: 160-189 mg/dL Very High Risk: >da=021 mg/dL Cholesterol/HDL Ratio 7.1 ratio [facility] Lipid Interpretation See Note [facility] Comment: Lipid management should be guided by a patient? s ASCVD risk, goals and preferences. ACC/AHA Guidelines recommend high intensity statin if clinical ASCVD or LDL greater than or equal to 190 mg/dL. http://[employer].Beanup/CJX-RUE-Nakgymshl Adults aged 40-75 with LDL 70-189 mg/dL should have their 10 year ASCVD risk estimated with the ACC/AHA ASCVD risk tabber http://tools.acc.org/CIORQ-Nkyj-Iwhnheigo/ Statin should be discussed if risk greater [...] Lab Isaiah Hoyos MD CHEMISTRY ORDERABLE S [facility] [place] [address] * COVID-19 PCR (06/09/2021 5:45 AM EDT) SARS-CoV-2 RNA (Rapid) Not Detected Not Detected [facility] Comment: This result should be interpreted [...] using the Simplexa COVID-19 Direct Assay by [employer]onect[employer] 2 as authorized by the FDA issued Emergency [...] Department of Pathology and Laboratory Medicine at [facility], certified under the Clinical Laboratory Improvement Amendments [...] fact sheets at the following FDA website: https://www.fda.gov/medical-devices/hnkyruxzpyt-ljvyzaz-1176-oiydd-97-lmzriduzq- use-a hkevcjiucrucv-czttxnj-mrzkfjq/vrphp-byhxaloncgq-ndzm SARS-CoV-2 Source PHP M[employer] DEVELOPER Swab MA R[facility] Nasopharyngeal Swab 06/09/20 5:45 AM EDT 06/10/2021 6:15 AM EDT Comment:Symptoms->Surveillan ce Narrative Resulting Agency Comment Spec In Lab Isaiah Hoyos MD MICROBIOLOGY - GENE RAL ORDERABLES Performing Organization Address [facility] Co de Phone Number [facility] [place] [address] * (ABNORMAL) POCT Glucose (06/09/2021 4:20 AM EDT) Glucose, POC 224(H) 65 - 199 mg/dL [facility] Comment: Supplemental ranges: <140 mg/dL before meals <180 mg/dL all other times of the day Blood 06/09/2021 4:20 AM EDT 06/09/2021 4:20 AM EDT Supa Alegria MD POINT OF CARE TEST O RDERABLES Performing Organization Address [facility] Co de Phone Number [facility] [place] [address] * (ABNORMAL) POCT Glucose (06/09/2021 12:35 AM EDT) Glucose, POC 346(H) 65 - 199 mg/dL [facility] Comment: Supplemental ranges: <140 mg/dL before meals <180 mg/dL all other times of the day Blood 06/09/2021 12:3 5 AM EDT 06/09/2021 12:35 AM EDT Zuleyka Hodgson MD POINT OF CARE T EST ORDERABLES Performing Organization Address [facility] Co de Phone Number [facility] [place] [address] * Heparin (unfractionated) Level (2021 10:41 PM EDT) Pathologist [facility] UF Heparin 0.26 IU/mL [facility] Comment: Guidelines for therapeutic unfractionated heparin [...] Lab Isaiah Hoyos MD HEMATOLOGY ORDERABL ES [facility] [place] [address] * EKG 12 Lead (2021 8:46 PM EDT) Pathologist [facility] Ventricular rate 69 BPM MUSE SYSTEM Atrial Rate 69 BPM MUSE SYSTEM P-R Interval 148 ms MUSE SYSTEM QRS Duration 84 ms MUSE SYSTEM Q-T Interval 384 ms MUSE SYSTEM QTC Calculated (Bezet) 411 ms MUSE SYSTEM Calculated P [place] 39 degrees MUSE SYSTEM Calculated R [place] 14 degrees MUSE SYSTEM Calculated T [place] 21 degrees MUSE SYSTEM INTERPRETATION Normal sinus [...] Blood Culture No growth at 5 days. [facility] Blood 2021 8:26 PM EDT 2021 8:57 PM EDT Narrative Resulting Agency Comment Spec In Lab Isaiah Hoyos MD MICROBIOLOGY - BLOO D ORDERABLES Performing Organization Address City/[facility] Co de Phone Number [facility] [place] [address] * Troponin (2021 7:31 PM EDT) Troponin-T <0.01 0.00 - 0.00 ng/mL [facility] Comment: The 99th percentile for Troponin T is less than 0.01 ng/mL, any detectable cTnT concentration using this assay should be considered elevated. According to the third universal definition of myocardial infarction the following criteria with a clinical presentation consistent with acute myocardial ischemia meets the diagnosis for a myocardial infarction (ID). Detection of a rise and/or fall of cTnT, with at least one value greater than the 99th percentile (> or = 0.01) and with at least one of the following ?? Symptoms of ischemia ?? New or presumed new significant OX-wfpojta-Z wave (ST-T) changes or new left bundle [...] additional sample may be indicated. Reference: Third [place] Definition of Myocardial Infarction. Journal of the [place] College [employer]iology 2012;60:1581-98 Blood 2021 7:31 PM EDT 2021 7:37 PM EDT Narrative Resulting Agency Comment Spec In Lab Isaiah Hoyos MD CHEMISTRY ORDERABLE S [facility] [place] [address] * (ABNORMAL) Differential, Automated (2021 7:31 PM EDT) Neutrophil % 53.6 % [facility] Neutrophil Absolute 4.36 1.70 - 6.10 x10(3)/mc L [facility] Lymph % 28.5 % [facility] Lymphocytes Abs 2.3 0.9 - 3.2 x10(3)/mc L [facility] Monocyte % 10.8 % [facility] Monocyte Abs 0.9 0.3 - 0.9 x10(3)/mc L [facility] Eos % 5.4 % [facility] Eosinophils Abs 0.4 0.0 - 0.4 x10(3)/mc L [facility] Basophil % 1.0 % [facility] Baso Absolute 0.1 0.0 - 0.1 x10(3)/mc L [facility] Immature Gran % 0.70 % [facility] Comment: Immature granulocytes(IG's)percentage and absolute count will include metamyelocytes, myelocytes, and promyelocytes. Blood smears from CBCs yielding IG's will be scanned manually for concordance. If this scan disagrees with the automated IG or if promyelocytes are noted, a manual differential will be performed. Immature Gran Absolute 0.06(H) 0.00 - 0.04 x10(3)/mc L [facility] Blood 2021 7:31 PM EDT 2021 7:37 PM EDT Narrative Resulting Agency Comment Spec In Lab Isaiah Hoyos MD HEMATOLOGY ORDERABL ES Performing Organization Address City/[facility]/ZIP Co de Phone Number [facility] [place] [address] * (ABNORMAL) Hemogram (2021 7:31 PM EDT) White Blood Cell 8.1 4.0 - 9.5 x10(3)/mc L [facility] Red Blood Cell 4.65 4.58 - 5.54 x10(6)/mc L [facility] Hemoglobin 13.5(L) 13.7 - 16.5 g/dL [facility] Hematocrit 39.4(L) 40.5 - 48.5 % [facility] Mean Cell Volume 84.7 82.9 - 93.1 fL [facility] Mean Cell Hemoglobin 29.0 27.5 - 32.1 pg [facility] Mean Cell Hemoglobin Concentration 34.3 32.0 - 35.7 g/dL [facility] Platelet 219 145 - 357 x10(3)/mc L [facility] RDW Standard Deviation 39.9 36.0 - 45.0 [facility] RDW coefficient of variation 13.1 11.4 - 13.8 % [facility] Mean Platelet Volume 10.5 7.6 - 12.9 [facility] NRBC% auto 0.0 % [facility] NRBC Absolute 0.000 0.000 - 0.000 x10(3)/ L [facility] Blood 2021 7:31 PM EDT 2021 7:37 PM EDT Narrative Resulting Agency Comment Spec In Lab Isaiah Hoyos MD HEMATOLOGY ORDERABL ES [facility] [place] [address] * (ABNORMAL) Basic Metabolic Panel (non-fasting) (2021 7:31 PM EDT) Glucose 244(H) 65 - 199 mg/dL [facility] Comment:Diabetes: >=200 mg/d L plus symptoms Blood Urea Nitrogen 12 10 - 20 mg/dL [facility] Creatinine 0.73(L) 0.80 - 1.50 mg/dL [facility] Sodium 133(L) 135 - 145 mmol/L [facility] Potassium 4.0 3.5 - 5.0 mmol/L [facility] Comment: Please note: ??Patients with WBC >100,000 may have falsely elevated Potassium levels. ??For accurate Potassium quantification in these patients send serum separator tube (gold top) for subsequent determinations. ??Contact the Clinical Chemistry Laboratory if there are any questions. Chloride 100 98 - 107 mmol/L [facility] Carbon Dioxide 22 22 - 31 mmol/L [facility] Anion Gap 11 5 - 15 mmol/L [facility] Calcium 9.3 8.5 - 10.5 mg/dL [facility] Est Glomerular Filtration Rate 105 >=60 mL/min/1. 73 m?? [facility] Comment: This patient? s estimated glomerular [...] Lab Isaiah Hoyos MD CHEMISTRY ORDERABLE S [facility] [place] [address] documented in this encounter Visit Diagnoses Diagnosis Unstable angina- Primary Intermediate coronary syndrome Chest pain, unspecified type Smoker Tobacco use disorder CAD (coronary artery disease) Coronary atherosclerosis of unspecified type of vessel, [place] or graft Chest pain Chest pain, unspecified Dyslipidemia Other and unspecified hyperlipidemia HTN (hypertension) Unspecified essential hypertension DM (diabetes mellitus) Type II or unspecified type diabetes mellitus without mention of complication, not stated as uncontrolled documented in this encounter Admitting Diagnoses Diagnosis Unstable [...] Given 06/09/2021 8:37 AM EDT 81 mg atorvastatin (Lipitor) tablet 80 mg 80 mg, Oral, EVERY EVENING, First dose on 06/09/21 at 1700, Until Discontinued, Routine Given 06/09/2021 4:4 2 PM EDT 80 mg buPROPion SR (Wellbutrin SR) tablet 150 [...] Given 06/09/2021 8:37 AM EDT 60 mg gabapentin (Neurontin) capsule 300 mg 300 mg, [...] tube = 37.5 grams., Routine heparin (porcine) 25,000 unit/500 mL infusion 1 dose, Starting on 06/08/21 at 1907, Until 06/08/21 at 1915, ARTURO MORRIS: cabinet override heparin (porcine) 50 units/mL in sodium chloride 0.45% 500 mL infusion 0-5,000 Units/hr (0-100 mL/hr), Intravenous, CONTINUOUS, Starting [...] Heparin UFH Level - Per Protocol, Routine New Bag 06/09/2021 3:22 PM EDT 1,250 Units/hr 25 mL/hr Rate/Dose Verify 06/09/2021 12:21 PM EDT 1,250 Units/hr 25 mL/hr Rate/Dose Change 06/09/2021 12:43 AM EDT 1,250 Units/hr 25 mL/hr insulin glargine (Lantus;Semglee) (100 unit/mL) subcutaneous injection [...] (100 unit/mL) subcutaneous injection vial 1-4 Units 1-4 Units, Subcutaneous, EVERY 4 HOURS SCHEDULED, [...] 240 mg/dL in 2 hours., Routine Given 06/09/2021 8:41 AM EDT 2 Units Given 06/09/2021 4:23 AM EDT 2 Units Given 06/09/2021 12:40 AM EDT 4 Units insulin lispro (HumaLOG;Admelog) (100 unit/mL) subcutaneous injection vial 1-6 Units 1-6 Units, Subcutaneous, EVERY 4 HOURS SCHEDULED, First dose on Thu06/09/21 at 1300, Until Discontinued, CORRECTION BOLUS [1-6 [...] mg/dL in 2 hours., Routine Given 06/10/2021 12:38 PM EDT 2 Units Given 06/10/2021 9:35 AM EDT 3 Units Given 06/10/2021 3:49 AM EDT 3 Units insulin lispro (HumaLOG;Admelog) (100 unit/mL) subcutaneous [...] Given 06/10/2021 4:33 PM EDT 1 Units isosorbide mononitrate CR (Imdur) tablet 30 mg [...] 2028, for discomfort with PIV insertion, Routine losartan (Cozaar) tablet 12.5 mg 12.5 mg, [...] Given 06/09/2021 8:37 AM EDT 100 mg nitroGLYcerin (Nitrostat) disintegrating tablet 0.4 mg [...] the last 24 to 72 hours., Routine ondansetron (pf) (Zofran) (2 mg/mL) injection 4 mg 4 mg, Intravenous, ONCE, 1 dose, On 06/09/21 at 0230 Given 06/09/2021 1:36 AM EDT 4 mg ondansetron (pf) (Zofran) (2 mg/mL) injection 4 mg 4 mg, Intravenous, ONCE, 1 dose, On 06/10/21 at 0430 Given 06/10/2021 3:46 AM EDT 4 mg pantoprazole EC (Protonix) tablet 40 mg 40 mg, Oral, 2 TIMES DAILY, First dose on 06/08/21 at 2115, Until Discontinued, DO NOT CRUSH OR OPEN, Routine Given 06/10/2021 9:32 AM EDT 40 mg Given 06/09/2021 8:22 PM EDT 40 mg Given 06/09/2021 8:36 AM EDT 40 mg piperacillin-tazobactam (Zosyn) 4.5 g vial attach to sodium chloride 0.9% 100 mL Mini-Bag Plus 4.5 g, Intravenous, EVERY 8 HOURS, First dose on 06/08/21 at 2100, Until Discontinued, Administer over 4 Hours, Warning Vesicant/Irritant Medication Do not administer or Y-site with lactated ringers., Indication for (Active or Suspected): Skin/Skin Structure New Bag 06/10/2021 12:38 PM EDT 4.5 g 25 mL/hr New Bag 06/10/2021 5:38 AM EDT 4.5 g 25 mL/hr New Bag 06/09/2021 8:21 PM EDT 4.5 g 25 mL/hr pramipexole (Mirapex) tablet 0.5 mg 0.5 mg, [...] link provided on this medication record., Routine topiramate (Topamax) tablet 50 mg 50 mg, Oral, NIGHTLY, First dose on 06/08/21 at 2115, Until Discontinued, Routine Given 06/09/2021 8:2 4 PM EDT 50 mg Given 2021 9:42 PM EDT 50 mg vancomycin (Vancocin) 1.75 gram in sodium chloride 0.9% 500 mL infusion 1,750 mg, Intravenous, at 250 mL/hr, EVERY [...] scheduled level. Warning Vesicant/Irritant Medication , Routine Given 06/09/2021 8:46 AM EDT 1,750 mg 250 mL/hr Given 2021 10:42 PM EDT 1,750 mg 250 mL/hr vancomycin (Vancocin) 1.75 gram in sodium chloride 0.9% 500 mL infusion 1,750 mg, Intravenous, at 250 mL/hr, EVERY [...] scheduled level. Warning Vesicant/Irritant Medication , Routine Given 06/10/2021 9:37 AM EDT 1,750 mg 250 mL/hr Given 06/09/2021 8:24 PM EDT 1,750 mg 250 mL/hr documented in this encounter Active and Recently Administered Medications Times are shown in EDT. Scheduled Medication Order 2021 06/09/2021 06/10/2021 aspirin chewable tablet 81 mg 81 mg, Oral, DAILY, First dose on 06/09/21 at 0900, Until Discontinued, Routine 0837 (Given - Provider: Fabienne Morelos RN) 0932 (Given - Provider: Fabienne Morelos RN)1041 (BANNER Hold - Provider: Admin Adt - Reason: Transfer to a Procedural area)1224 (BANNER Unhold - Provider: Admin Adt) atorvastatin (Lipitor) tablet 80 mg (CANCELED) 80 mg, Oral, EVERY EVENING, First dose on 06/09/21 at 1700, Until Discontinued, Routine 164 (Given - Provider: Fabienne Morelos RN) buPROPion SR (Wellbutrin SR) tablet 150 mg 150 mg, Oral, 2 TIMES DAILY, First dose on 06/08/21 at 2115, Until Discontinued, DO NOT CRUSH OR OPEN, Routine 2140 (Given - Provider: Arturo Morris RN) 0837 (Given - Provider: Fabienne Morelos RN)202 (Given - Provider: Emily Olmedo RN) 0932 (Given - Provider: Fabienne Morelos RN)1041 (BANNER Hold - Provider: Admin Adt - Reason: Transfer to a Procedural area)1224 (BANNER Unhold - Provider: Admin Adt) cephALEXin (Keflex) [...] (Given - Provider: Fabienne Morelos RN)1041 (BANNER Hold - Provider: Admin Adt - Reason: Transfer to a Procedural area)1224 (BANNER Unhold - Provider: Admin Adt) DULoxetine DR (Cymbalta) capsule 60 mg 60 mg, Oral, 2 TIMES DAILY, First dose on 06/08/21 at 2115, Until Discontinued, Routine 2140 (Given - Provider: Arturo Morris RN) 0837 (Given - Provider: Fabienne Morelos RN)202 (Given - Provider: Emily Olmedo RN) 0932 (Given - Provider: Fabienne Morelos RN)1041 (MAR Hold - Provider: Admin Adt - Reason: Transfer to a Procedural area)1224 (MAR Unhold - Provider: Admin Adt) gabapentin (Neurontin) capsule 300 mg 300 mg, Oral, 3 TIMES DAILY, First dose on 06/08/21 at 2115, Until Discontinued, Routine 2140 (Given - Provider: Arturo Morris RN) 0837 (Given - Provider: Fabienne Morelos RN)152 (Given - Provider: Fabienne Morelos RN)2021 (Given - Provider: Emily Olmedo RN) 0932 (Given - Provider: Fabienne Morelos RN)1041 (MAR Hold - Provider: Admin Adt - Reason: Transfer to a Procedural area)1224 (MAR Unhold - Provider: Admin Adt)1544 (Given - Provider: Fabienne Morelos RN) insulin glargine (Lantus;Semglee) (100 unit/mL) subcutaneous [...] Provider: Admin Adt)1350 (Given - Provider: Fabienne Morelos, VERO)1727 (Given - Provider: Fabienne Morelos, VERO) insulin lispro (HumaLOG;Admelog) (100 unit/mL) subcutaneous injection [...] Arturo Morris RN)0841 (Given - Provider: Fabienne Morelos, VERO)1200 (Not Given - Provider: Fabienne Morelos, VERO - Reason: Contraindicated) insulin lispro (HumaLOG;Admelog) (100 [...] RN) 0000 (Not Given - Provider: Emily Olmedo RN - Reason: Patient/family refused)0349 (Given - [...] Discontinued, DO NOT CRUSH OR OPEN, Routine 0604 (Given - Provider: Arturo Morris RN) 0538 (Given - Provider: Emily Olmedo RN)1041 (BANNER Hold - Provider: Admin Adt - Reason: Transfer to a Procedural area)1224 (BANNER Unhold - Provider: Admin Adt) losartan (Cozaar) tablet 12.5 mg 12.5 mg, Oral, DAILY, First dose on 06/09/21 at 0900, Until Discontinued, Routine 0837 (Given - Provider: Fabienne Morelos RN) 0932 (Given - Provider: Fabienne Morelos RN)1041 (BANNER Hold - Provider: Admin Adt - Reason: Transfer to a Procedural area)1224 (BANNER Unhold - Provider: Admin Adt) metoprolol succinate XL (Toprol-XL) tablet 100 mg 100 mg, Oral, DAILY, First dose on 06/09/21 at 0900, Until Discontinued, DO NOT CRUSH OR OPEN, Routine 0837 (Given - Provider: Fabienne Morelos RN) 0932 (Given - Provider: Fabienne Morelos RN)1041 (BANNER Hold - Provider: Admin Adt - Reason: Transfer to a Procedural area)1224 (BANNER Unhold - Provider: Admin Adt) ondansetron (pf) [...] RN) 0836 (Given - Provider: Fabienne Morelos RN)2021 (Given - Provider: Emily Olmedo RN) 0932 (Given - Provider: Fabienne Morelos RN)1041 (BANNER Hold - Provider: Admin Adt - Reason: Transfer to a Procedural area)1224 (BANNER Unhold - Provider: Admin Adt) piperacillin-tazobactam (Zosyn) 4.5 g vial attach to sodium chloride 0.9% 100 mL Mini-Bag Plus (CANCELED) 4.5 g, Intravenous, EVERY 8 HOURS, First dose on 06/08/21 at 2100, Until Discontinued, Administer over 4 Hours, Warning Vesicant/Irritant Medication Do not administer or Y-site with lactated ringers., Indication for (Active or Suspected): Skin/Skin Structure 214 (New Bag - Provider: Arturo Morris RN) [...] RN)0938 (Stopped - Provider: Fabienne Morelos RN)1041 (BANNER Hold - Provider: Admin Adt - Reason: Transfer to a Procedural area)1224 (BANNER Unhold - Provider: Admin Adt)1238 (New Bag - Provider: Fabienne Morelos RN)1638 (Stopped - Provider: Fabienne Morelos RN) pramipexole (Mirapex) tablet 0.5 mg 0.5 mg, Oral, NIGHTLY, First dose on 06/08/21 at 2115, Until Discontinued, Routine 214 (Given - Provider: Arturo Morris RN) 202 (Given - Provider: Emily Olmedo RN) 1041 (BANNER Hold - Provider: Admin Adt - Reason: Transfer to a Procedural area)1224 (BANNER Unhold - Provider: Admin Adt) ranolazine ER (Ranexa) tablet 500 mg 500 mg, Oral, 2 TIMES DAILY, First dose on 06/10/21 at 1100, Until Discontinued, DO NOT CRUSH OR OPEN. Baseline EKG required before administration., Routine, Has baseline EKG been obtained? Yes 1041 (BANNER Hold - Provider: Admin Adt - Reason: Transfer to a Procedural area)1100 (Canceled Entry - Provider: Fabienne Morelos RN - Reason: Transfer to a Procedural area)1224 (BANNER Unhold - Provider: Admin Adt)1238 (Given - Provider: Fabienne Morelos RN) rosuvastatin (Crestor) tablet 40 mg 40 mg, Oral, EVERY EVENING, First dose on 06/10/21 at 1700, Until Discontinued, Routine 1041 (MAR Hold - Provider: Admin Adt - Reason: Transfer to a Procedural area)1224 (MAR Unhold - Provider: Admin Adt)1633 (Given - [...] Reason: Transfer to a Procedural area)1224 (BANNER Unhold - Provider: Admin Adt) topiramate (Topamax) tablet 50 mg 50 mg, Oral, NIGHTLY, First dose on 06/08/21 at 2115, Until Discontinued, Routine 2142 (Given - Provider: Arturo Morris RN) 2024 (Given - Provider: Emily Olmedo RN) 1041 (BANNER Hold - Provider: Admin Adt - Reason: Transfer to a Procedural area)1224 (BANNER Unhold - Provider: Admin Adt) vancomycin (Vancocin) [...] 0937 (Given - Provider: Fabienne Morelos RN)1041 (MAR Hold - Provider: Admin Adt - Reason: Transfer to a Procedural area)1224 (MAR Unhold - Provider: Admin Adt) Continuous Medication [...] Heparin UFH Level - Per Protocol, Routine 1915 (New Bag - Provider: Arturo Morris RN) 0043 (Rate/Dose Change - Provider: Arturo Morris RN)1221 (Rate/Dose Verify - Provider: Fabienne Morelos RN)1522 (New Bag - Provider: Fabienne Morelos RN) 1041 (MAR Hold - Provider: Admin Adt - Reason: Transfer to a Procedural area)1148 (MAR Unhold - Provider: Maricel Pereyra RN) PRN [...] on 06/08/21 at 2110, Until Thu06/10/21 at 2029, Low blood sugar, For BG [...] duration of the active insulin., Routine 1041 (OCT Hold - Pro vider: Admin Adt - Reason: Transfer to a Procedural area)1224 (OCT Unhold - Provider: Admin Adt) glucose (GLUTOSE) 40% oral geL(Linked Group 5) 15-30 g, Buccal, EVERY 30 MIN PRN, Starting on 06/08/21 at 2110, Until Thu06/10/21 at 2029, Low blood sugar, For BG [...] of tube = 37.5 grams., Routine 1041 (OCT Hold - Pro vider: Admin Adt - Reason: Transfer to a Procedural area)1224 (OCT Unhold - Provider: Admin Adt) heparin (porcine) (1,000 units/mL) injection (CANCELED) ONCE PRN, Starting on Thu06/10/21 at 1122, Until Thu06/10/21 at 1147, Cath (Intra-Procedure), Routine 1122 (Given - Provid er: Naye Song RN)1132 (Given - Provider: Naye Song RN) iohexoL (Omnipaque) (350 mg/mL) injection solution (CANCELED) ONCE PRN, Starting on Thu06/10/21 at 1145, Until Thu06/10/21 at 1147, Cath (Intra-Procedure), Routine 1145 (Given - Provid er: Jose Damon MD - Comment: Contrast in Studio Artist) lidocaine (Xylocaine) 1% (10 mg/mL) injection 3 mg 3 mg (0.3 mL), Subcutaneous, ONCE PRN, 1 dose, Starting on 10/16/21 at 1909, Until Thu06/10/21 at 2028, for discomfort with PIV insertion, Routine 1041 (OCT Hold - Pro vider: Admin Adt - Reason: Transfer to a Procedural area)1224 (BANNER Unhold - Provider: Admin Adt) lidocaine (Xylocaine) [...] Reason: Transfer to a Procedural area)1224 (BANNER Unhold - Provider: Admin Adt) nitroGLYcerin 100 [...] area)1224 (OCT Unhold - Provider: Admin Adt) sodium chloride 0.9 % (flush) (BD PosiFlush Normal Saline 0.9) flush (CANCELED) ONCE PRN, Starting on 06/10/21 at 1119, Until 06/10/21 at 1147, Cath (Intra-Procedure), Routine 1119 (Given - Provid er: Naye Song RN - Comment: for mean AO of 76) sodium chloride 0.9% infusion (CANCELED) CONTINUOUS PRN, Starting on 06/10/21 at 1053, Until 06/10/21 at 1147, Cath (Intra-Procedure) 1053 (New Bag - Prov ider: Naye Song RN - Comment: Studio Artist Flush Line) verapamiL (Isoptin) (2.5 mg/mL) injection [...] Routine, EVERY 4 HOURS, First occurrence on Thu06/10/21 at 1600, Until Specified, Consider choosing EVERY [...] PROTOCOL, Starting on 06/08/21 at 2001, Until 06/10/21 at 1148, Per Protocol, START ADJUSTMENT SCHEDULE [...] Routine documented in this encounter Care Teams Chicken Tender Relationship Specialty Start Date End Date Coni Lim MD [address] [place] [address] PCP - General 07/16/10 documented as of this encounter
--- OUTSIDE RECORDS SUMMARY | 2024-04-30 13:40 | XMS_ITS | Encounter Summary ---
Author Organization [facility] Address [facility] [place] [address] Care Team Providers Care Community Coordinator For [employer] Name Role Phone Coni Lim MD Primary Care Provider [phone] Encounter Details Date Type Department Care Team (Late st Contact Info) Description 09/28/2019 [place] [address] Keeley Paredse MD [facility] [place] [address] Social History Tobacco Use Types Packs/Day Years [...] encounter Miscellaneous Notes * Telephone Encounter - Citlaly Gonzalez - 10/21/2019 11:25 AM EST scheduled * Telephone Encounter - Naye Weiss - 09/28/2019 2:11 PM EST Received referral for patient. Dr. Paredes would like to have him in for MSO in 1-3 months. I have called and left message for patient to call to schedule with Dr. Paredes. documented in this encounter Plan of Treatment Not on file documented as of this encounter Visit Diagnoses Not on filedocumented in this encounter Care Teams Community Coordinator For [employer] Relationship Specialty Start Date End Date Coni Lim MD [address] [place] [address] PCP - General 07/16/10 documented as of this encounter
--- OUTSIDE RECORDS SUMMARY | 2024-04-30 13:40 | XMS_ITS | Encounter Summary ---
[place] [address] Care Team Providers Care Group Supervisor Yard Name Role Phone Coni Lim MD Primary Care Provider [phone] Reason for Visit * Auth/Cert Specialty Diagnoses / Procedures Referred By Ruby garvin Referred To Contact Diagnoses Unstable angina Chest pain Procedures EMERGENCY IPI Referral ID Status Reason Start Date Expiration Date Visits Re quested Visits Authorized [id number] 1 1 Encounter Details Date Type Department Care Team (Latest Contact Info) Description 06/09/2021 9:25 AM EDT - 06/09/2021 11:59 PM EDT Hospital Encounter [place] [id number] Discharge Disposition: Home Social History Tobacco Use [...] on file documented as of this encounter Medications at Time of Discharge [...] for 5 days. 20 capsule 06/10/2021 06/15/2021 metFORMIN XR (Glucophage XR) 500 mg Tablet Sustained Release 24 hr 1,000 mg 2 times daily. 05/19/2020 06/10/2021 nitroGLYcerin (NITROSTAT) 0.4 mg Tablet, Sublingual Place 1 tablet under the tongue every 5 minutes as needed for Chest pain. 90 tablet 12 03/16/2019 06/10/2021 amLODIPine (NORVASC) 2.5 mg Tablet Take 1 tablet by mouth daily. 90 tablet 3 03/17/2019 06/10/2021 aspirin 81 mg Tablet, Chewable Take 81 mg by mouth daily. 30 tablet 3 09/15/2017 06/10/2021 documented as of this encounter Plan of Treatment Not on file documented as of this encounter Procedures Procedure Name Priority Date/Time Associated Diagnosis Comments ECHO COMPLETE W CONTRAST Routine 06/09/2021 1:52 PM EDT Chest pain, unspecified type documented in this encounter Visit Diagnoses Not on filedocumented in this encounter Administered Medications Inactive Administered Medications - up to 3 most recent administrations Medication Order MAR Action Action Date Dose Rate Site perflutren protein-A microsphers (Optison) (0.22 mg/mL) injection 0.6 mL 0.6 mL, Intravenous, ONCE PRN, 1 dose, Starting on 06/09/21 at 1353, Until 06/09/21 at 1353, Per Protocol, Routine Given 06/09/2021 1:53 PM EDT 0.6 mLs documented in this encounter Care Teams Group Supervisor Yard Relationship Specialty Start Date End Date Coni Lim MD [address] [place] [address] PCP - General 07/16/10 documented as of this encounter
--- OUTSIDE RECORDS SUMMARY | 2024-04-30 13:40 | XMS_ITS | Encounter Summary ---
Author Organization [facility] Address [facility] [place] [address] Care Team Providers Care Web Marketing Analyst Name Role Phone Coni Lim MD Primary Care Provider [phone] Encounter Details Date Type Department Care Team (Late st Contact Info) Description 06/07/2020 Telephone [place] [address] Keeley Paredes MD [facility] [address] OPHTHALMOLOGY [place] [id number] Social History Tobacco Use Types Packs/Day Years [...] encounter Miscellaneous Notes * Telephone Encounter - Keeley Paredes MD - 06/07/2020 2:09 PM EDT The lesion that I biopsied showed: DIAGNOSIS A - Eye, right caruncle cystic lesion, biopsy: Dermoid cyst. This lesion is benign and no further treatment is required. I called Romeo to discuss the results. I left a message. documented in this encounter Plan of Treatment Not on file documented as of this encounter Visit Diagnoses Not on filedocumented in this encounter Care Teams Web Marketing Analyst Relationship Specialty Start Date End Date Coni Lim MD [address] [place] [address] PCP - General 07/16/10 documented as of this encounter
--- OUTSIDE RECORDS SUMMARY | 2024-04-30 13:40 | XMS_ITS | Encounter Summary ---
Author Organization [facility] Address [facility] [place] [address] Care Team Providers Care Distribution Center Supervisor Name Role Phone Coni Lim MD Primary Care Provider [phone] Reason for Visit * Reason Onset Date Comments Procedure 05/24/2020 Encounter Details Date Type Department Care Team (Latest Contact Info) Description 05/24/2020 11:15 AM EDT Procedure [place] [address] Keeley Paredes MD [facility] [place] [address] Conjunctival lesion Social History Tobacco Use Types [...] on file documented as of this encounter Patient Instructions * Patient Instructions* Keeley Paredes MD - 05/24/2020 11:15 AM EDT - Use erythromycin ointment 3x/day to the right eye for 3 days. This may blur your vision slightly. - There are no activity restrictions. - Please call [facility] for worsening eyelid redness, pain, discharge. - I will call you with the pathology results. - F/u in 3-4 weeks documented in this encounter Progress Notes * Keeley Paredes MD - 05/24/2020 11:15 AM EDT Please see procedure note for details. Keeley Paredes MD documented in this encounter Plan of Treatment Not on file documented as of this encounter Procedures Procedure Name Priority Date/Time Associated Diagnosis Comments EXCISION LESION CONJUNCTIVA UP TO 1CM - OD - RIGHT EYE Routine 05/24/2020 11:21 AM EDT Conjunctival lesion SPECIMEN TO PATHOLOGY Routine 05/24/2020 11:19 AM EDT Conjunctival lesion SURGICAL PATHOLOGY REPORT Routine 05/24/2020 11:09 AM EDT documented in this encounter Results * Excision Lesion Conjunctiva Up To 1cm - OD - Right Eye (05/24/2020 11:21 AM EDT) Anatomical Region Laterality Modality Other Narrative 05/24/2020 11:21 AM EDT Pre-Op Patient understands the risks and benefits of the treatment as outlined on the consent. Anesthesia Anesthetic medications included Lidocaine 2%, Tetracaine 0.5%. Post-op The patient tolerated the procedure well. There were no complications. The patient received written and verbal post procedure care education. Notes Pre op diagnosis: Right caruncle lesion Postop diagnosis: same Procedure: Excisional biopsy right caruncle lesion Anesthesia: local Surgeon: Keeley Paredes MD Specimen:right caruncle lesion Indications for procedure: Romeo presented with a right caruncle cystic lesion that was irritating x 1 year. ??Surgery was recommended for diagnostic purposes and not for cosmetic reasons. Description of procedure: Indications, risks, benefits, and alternatives of the procedure were reviewed with Romeo and informed consent was signed. ??A time out was performed. ??A drop of tetracaine then a drop of 5% betadine was applied to the right eye. ??Then 2% lidocaine + epi was injected underneath the lesion. Good analgesia was achieved. The lesion was grasped with toothed forceps and excised with Nia scissors, and then passed off as a specimen. Hemostasis was achieved with gentle pressure. The patient tolerated the procedure well and was discharged in stable condition. Post op instructions: - Erythromycin ointment 3x/day to the right eye for 3 days. ?? - No activity restrictions. ?? - Call if worsening eyelid redness, pain, discharge - Romeo expressed understanding. Keeley Paredes MD OPHTHALMOLOGY SERVIC ES ORDERABLES * Specimen to Pathology (05/24/2020 11:19 AM EDT) AP Specimen 05/24/2020 11:1 9 AM EDT 05/24/2020 11:19 AM EDT Narrative [facility] - 05/24/2020 11:19 AM EDT Specimen requisition ordered. ??Separate Pathology report to follow Keeley Paredes MD PATHOLOGY/CYTOLOGY O RDERABLES [facility] [place] [address] * Surgical Pathology Report (05/24/2020 11:09 AM EDT) Final Diagnosis [id number] ? Location: The signing pathologist has (i) examined the relevant preparation(s) for the specimen(s) and (ii) rendered or confirmed the diagnosis(es). . ?Surgical Pathology DIAGNOSIS A - Eye, right caruncle cystic lesion, biopsy: Dermoid cyst. Electronically signed by: ??Wendy Oneill MD Verified: ??05/30/2020 ?Pathologist Performed at: ??-[facility], [place], [place] DISCUSSION Multiple deeper levels were examined. SPECIMEN(S) SUBMITTED A - right caruncle cystic lesion, biopsy (1) CLINICAL INFORMATION Right caruncle cystic lesion x1 year, irritating SPECIMEN PROCESSING A - Labeled/Fixativ e: Right eye, formalin. Quantity/Size: Two, 0.2 and 0.4 cm. Tissue Description: Soft, rubbery, yellow-waletrs tissues. Sections/Proces sing: Submitted en toto ??in 1 cassette labeled A1. ??shb 05/30/2020 3:05 PM EDT [facility] BIOPSY SPECIMEN / Unknown 05/24/2020 11:09 AM EDT 05/24/2020 11:09 AM EDT Keeley Paredes MD PATHOLOGY/CYTOLOGY O RDERABLES [facility] [place] [address] documented in this encounter Visit Diagnoses Diagnosis Conjunctival lesion Unspecified disorder of conjunctiva documented in this encounter Care Teams Distribution Center Supervisor Relationship Specialty Start Date End Date Coni Lim MD [address] [place] [address] PCP - General 07/16/10 documented as of this encounter
--- OUTSIDE RECORDS SUMMARY | 2024-04-30 13:40 | XMS_ITS | Encounter Summary ---
Author Organization [facility] Address [facility] [place] [address] Care Team Providers Care Seo Assistant Name Role Phone Coni Lim MD Primary Care Provider [phone] Reason for Visit * Auth/Cert Specialty Diagnoses / Procedures Referred By Ruby t Referred To Contact Diagnoses ACS (acute coronary syndrome) UNSTABLE ANGINA Referral ID Status Reason Start Date Expiration Date Visits Re quested Visits Authorized [id number] 1 1 Encounter Details Date Type Department Care Team (Latest Contact Info) Description 03/14/2019 12:38 AM EDT - 03/16/2019 3:55 PM EDT Hospital Encounter [place] [id number] Wale Mckeon MD [facility] [place] [address] [place] [address] Unstable angina Discharge Disposition: Home Social History Tobacco Use [...] Sign Reading Time Taken Comments Blood Pressure 114/75 03/16/2019 11:33 AM EDT Pulse 67 03/16/2019 8:29 AM EDT Temperature 36.7 ??C (98.1 ??F) 03/16/2019 11:33 AM E DT Respiratory Rate 16 03/16/2019 11:33 AM EDT Oxygen Saturation 95% 03/16/2019 11:33 AM EDT Inhaled Oxygen Concentration - - Weight 99.9 kg (220 lb 3.8 oz) 03/16/2019 6:16 A M EDT Height 177.8 cm (5' 10) 03/13/2019 11:00 PM EDT reported Body Mass Index 31.6 03/13/2019 11:00 PM EDT documented in this encounter Discharge Summaries * Wale Mckeon MD - 03/16/2019 3:38 PM EDT Discharge Summary Patient Name: Romeo Coe Patient Age: 53 y.o. Language: Sri Lankan Race: White Ethnicity: Not nor Admit date: 03/14/2019 Discharge date and time: 03/16/2019 3:00 PM Attending Physician: Wale Mckeon MD Discharge Physician: Wale Mckeon MD Follow-up Recommendations for Providers: 1. Please monitor BP, initiated on low dose amlodipine in setting of possible coronary vasospasm/microvessel angina 2. Discharge weight 220 lbs 3. Cath with non-obstructive disease, rosuvastatin increased to 40 mg daily, cont. Aspirin 81 mg daily 4. CTA negative for PE. Incidental finding regarding indeterminate mild RIGHT posterior pleural thickening noted on CTA, further screening and intervention per PCP 5. Hypotensive episode this admission with SBP in 70s (with quick recovery to low 100 systolic), please reinstate TRAN/ARB therapy when BP allows Inpatient Provider Contact Information: MD Esperanza Solis, KRYSTINA Bush, DIRECTOR OF RETAIL MARKETING [phone] Discharge Diagnoses (Hospital Problems) and Secondary Diagnoses (Chronic Problems): Active Hospital Problems Diagnosis ??? Chest pain ??? Smoker ??? HTN (hypertension) ??? DM (diabetes mellitus) ??? GERD (gastroesophageal reflux disease) Resolved Hospital Problems No resolved problems to display. Active Non-Hospital Problems Diagnosis ??? Unstable angina ??? CAD (coronary artery disease) ??? Hx-TIA (transient ischemic attack) ??? Dyslipidemia Operations/Major Procedures: Operations: Procedure(s): CARDIAC CATHETERIZATION CORONARY ANGIOGRAPHY; W LHC,POSSIBLE PCI Other Major Procedures: ?? Cardiac catheterization 03/14/19 Hemodynamics: ?Left Heart Pressures ?Resting: ?Syst Diast ?EDP ?a ?v ?m ?Ao 119 ?68 ?90 ?LV 113 ?12 ? Coronary Angiography: ?Dominance: Right ?Left Main ?The left main was normal, free of disease. ?Left Anterior Descending ?There was a 20% long segmental stenosis of the proximal segment of ?the left anterior descending artery (LAD). ??The LAD was large. ??The ?mid segment of the LAD had a single discrete 40% stenosis. ??The ?previously placed stent is patent. ?There was a 70% single discrete stenosis of the ostial segment of ?the first diagonal branch (Diagonal 1) of the LAD. ??The Diagonal 1 ?was small. ?Left Circumflex ?There were multiple discrete 20% stenoses of the proximal segment of ?the left circumflex artery (LCX). ??The LCX was large. ??The mid ?segment of the LCX had mild diffuse (<=25% stenosis) disease. ?There was mild diffuse (<=25% stenosis) disease of the entire vessel ?segment of the first left posterolateral branch (LPL1) of the LCX. ?The LPL1 was moderate in size. ?Right Coronary Artery ?There was mild diffuse (<=25% stenosis) disease of the entire vessel ?segment of the right coronary artery (RCA). ??The RCA was moderate in ?size. ??The proximal segment of the RCA had a long segmental 50% ?stenosis. ?There were multiple discrete 40% aneurysmal stenoses of the proximal ?segment of the right posterior descending branch (RPDA) of the RCA. ?The RPDA was moderate in size. ? Vascular Access: ?Vascular Access Management: ?Mechanical Compression of the right radial artery access site was ?performed. ? Conclusions: ?* Two vessel coronary artery disease (LAD and RCA) ? Complications/Events: ?The patient had no complications during these procedures. ? Comments: ?No obstructive lesions to explain resting pain are seen; no objective ?measures of ischemia (negative trop, ECG and no stress testing.) ?Recommend medical management. Discussed with Dr Mckeon. Other Studies TTE 03/14/19 SUMMARY: 1. There is normal global left ventricular systolic function. ??The quantitative left ventricular ejection fraction by biplane Mcleod's method is 63%. There are no left ventricular segmental wall motion abnormalities. 2. The right ventricle is normal in size. Right ventricular global systolic function is normal. 3. There is no hemodynamically significant valve disease. 4. When compared with study dated 08/2017, no significant change is noted. 5. See remainder of report for additional findings. CT 03/16/2019 EXAMINATION: CTA CHEST PULMONARY EMBOLISM W CONTRAST ?? CLINICAL HISTORY: undifferentiated chest pain, please also rule out PE ?? TECHNIQUE: 3mm thick axial contiguous sections were obtained through the chest via helical acquisition after the intravenous administration of contrast, Administered 78.0 ml of OMNIPAQUE 350.00 mg/ml. Thin-section reconstructions as well as coronal and sagittal MIP reformatted images were generated to aid in evaluation. ?? COMPARISON: None ?? FINDINGS: Pulmonary arteries: No pulmonary arterial filling defects. ?? Other cardiovascular structures: No significant findings. ?? Pulmonary parenchyma: LEFT lower lobe focal scarring/atelectasis. A 4 mm subpleural nodule seen along the minor fissure, compatible with an intrapulmonic lymph node. Airways: No significant findings. Pleura: Indeterminate mild RIGHT posterior pleural thickening. Lymph nodes: No significant findings. Other mediastinal structures: No significant findings. Upper abdomen: Postcholecystectomy. 5.2 cm simple cyst upper pole LEFT kidney. Skeletal structures: No significant findings. ?? IMPRESSION No pulmonary embolism identified. Indeterminate mild RIGHT posterior pleural thickening. ?? History of Presentation: Mr. Romeo Coe is a 53 y/o male with a pmhx of CAD s/p multiple JACINDA PCIs to the mid LAD due tofrequent instent restenosis since 2011 and last JACINDA PCI to the RCA in 11/2016 following UAP, DM2, HTN, HLD, TIA and GERD who was transferred from [facility] with a diagnosis of UAP. ?? He presented to the ED with worsening exertional chest pain that started 1 week ago and progressively worsening over the last week. The pain was substernal, 8/10 in severity with no radition. The episodes tended to resolve at rest. On the presentation day, he had a crushing like, 10/10 in severity,substernal chest pain while raising from his chair that radiated to his jaw and shoulder blades. Resting did not help reduce the pain. It was not identical to his previous angina that was pressure like pain. Associated with exertional shortness of breath and sweating. He took 2 NTG 5 minutes apart and 1 full dose aspirin and the pain subsided from 10 to 5/10. As the pain did not resolve completely, EMS was called. ?? His [facility] admission [place] [facility] was in Aug 2017 when he presented with UAP. Cath showed the patency of previous stent in RCA but showed 40% lesion in the mid LAD and 45% stenosis in the RPDA. IFR was performed for these lesions and found to be insignificant. TTE showed no WMAs with LVEF 65%. On discharge, it was felt that his symptoms were not cardiac in nature. His Ranexa and Imdur were discontinued.He has been relatively well since then. He never needed NTG SL. ?? In the ED, his BP??improved after IVF boluses from 80s in systolic to 116/76 mm Hg,?HR 77??bpm, SpO2: 98% on RA. EKG showed NSR w/o ischemic findings, TropX2(-). Other labs are as follows WBC: 9.6, H&H 15.7/44.2, PLT: 214, BUN&Cre 12/1.03, Na: 139, K: 3.5, Cl: 105 and INR: 1.0. ASA 324 mg, Clopidogrel 300 mg and IVP Morphine 2 mg given. He was started on Heparin gtt and transferred to [facility] for cardiac cath. Hospital Course: Undifferentiated Chest Pain - Coronary Vasospasm/Microvessel angina vs Non- Cardiac Chest Pain Romeo Coe is a 53 yo M transferred from [facility] for evaluation of unstable angina. Troponins negative. ECG with no acute ischemic changes. Patient was started on a heparin drip and loaded with Plavix. He was continued on his home ASA, statin and beta agatha. Echocardiogram revealed a preserved EFat 62% and no wall motion abnormalities. Based on personal history and presenting symptoms, we decided to proceed with a cardiac catheterization. This revealed no new obstructive lesions in comparison to prior cath with non-obstructive coronary disease (as noted above). Medications were since adjusted for management of a possible coronary vasospasm, however in the setting of initiation of Imdur the patient became hypotensive with systolic blood pressure 70s-90s, symptomatic. This was subsequently discontinued, along with losartan and reduction of his metoprolol. He was started on amlodipine 2.5 mg without further episodes of hypotensive. Post cath he experienced a subsequent episode of chest pain which was responsive to his home dose of oxycodone and flexeril. Given this, it has been difficult to discern whether his pain is occurring in the setting of coronary vasospasm vs. a non cardiac etiology. Subsequently sent for CTA chest which was negative for PE and without other acute findings. An indeterminate mild RIGHT posterior pleural thickening was noted. He was discharged on amlodipi ne 2.5 mg, metoprolol succinate 100 mg daily, rosuvastatin uptitrated to 40 mg daily, and continuedon his home dose of oxycodone and flexaril. Hypotension As stated above patient became hypotensive to with SBP 70-90 and symptomatic. His blood pressure quickly recovered from this episode within 5 minutes to an SBP 100-110, however in the setting medications were adjusted. Losartan and imdur were discontinued, metoprolol was reduced to 100 mg daily from a prior dosing of 200 mg daily. He was initiated on low dose amlodipine for vasospasm without further hypotension. Would recommend re-initiating TRAN/ARB as outpatient when BP allows. Type 2 DM Hgba1c 6.4% in 08/2017. He is not any medications at home. He was maintained on SSI and a carb controlled diet here. HgbA1c from this admission was 6.8. ?? Hyperlipidemia Total cholesterol 207, HDL 28, triglyceride 256, LDL 128. Rosuvastatin increased to 40 mg daily. ?? Chronic pain/fibromyalgia Patient was continued on his home medications including oxycodone 10 mg p.o. every 4 hours as needed, duloxetine 60 mg p.o. twice daily, cyclobenzaprine 10 mg p.o. at night gabapentin 600 mg p.o. 3 times daily. Flexeril and gabapentin were noted to alleviate his chest pain. ? Smoking Cessation Patient continues to smoke 1-2 cigarette daily. He was unwilling to see the smoking cessation time.He was provided with nicotine patches/gum as needed. Functional and Cognitive Status: Patient is alert and oriented x3, ambulatory without chest pain. Important Studies and Lab Data: Labs: Lab Results Component Value Date WBC 6.6 03/16/2019 HGB 15.6 03/16/2019 HCT 45.4 03/16/2019 PLATELET 154 03/16/2019 No results for input(s): INR in the last 168 hours. Lab Results Component Value Date NA 138 03/16/2019 K 3.6 03/16/2019 CL 106 03/16/2019 CO2 20 (L) 03/16/2019 BUN 10 03/16/2019 CREATININE 0.91 03/16/2019 No results for input(s): TSH in the last 7068 hours. Recent Labs 03/15/19 0501 HA1C 6.8* Recent Labs 03/15/19 1117 03/14/19 1510 03/14/19 0853 TROPONINT <0.01 <0.01 <0.01 Lab Results Component Value Date CHLPL 207 03/15/2019 HDL 28 03/15/2019 CHOLHDL 7.4 03/15/2019 TRIG 256 03/15/2019 LDLCHOL 128 03/15/2019 LDLDIRECT 102 09/13/2017 Pending Studies and Lab Data: None Discharge Conditions/Prognosis: Stable Discharge to: Home Updated Allergies/ADRs: Allergies Allergen Reactions ??? Thallium-201 Severe cardiac event ??? Lisinopril Other (See Comments) cough ??? Paper Tape [Adhesive Tape] Rash Immunizations Given this Hospitalization: Immunization History Administered Date(s) Administered ??? Influenza PF, Split 07/30/2013 ??? Influenza Vaccine (Novel) [id number], Injectable 05/24/2009 ??? Influenza Vaccine w/Preservative, Split 06/15/2012 ??? Influenza Vaccine, Whole 06/21/2008, 05/24/2009 ??? Pneumococcal Polyvalent 23 05/24/2009 Discharge Medications: Your Medications New Medications Dose Details acetaminophen 325 mg Tab Commonly known as: TYLENOL Take 2 tablets by mouth every 4 hours as needed. 650 mg Quantity: 30 tablet Refills: 0 amLODIPine 2.5 mg Tab Commonly known as: NORVASC Take 1 tablet by mouth daily. Start taking on: 03/17/2019 2.5 mg Quantity: 90 tablet Refills: 3 metoprolol succinate 100 mg Tablet sr Commonly known as: TOPROL-XL Take 1 tablet by mouth daily. 100 mg Quantity: 30 tablet Refills: 12 Continued medications with new dosing Dose Details aspirin 81 mg Chew Take 81 mg by mouth daily. What changed: how much to take 81 mg Quantity: 30 tablet Refills: 3 nitroGLYcerin 0.4 mg Subl Commonly known as: NITROSTAT Place 1 tablet under the tongue every 5 minutes as needed for Chest pain. What changed: reasons to take this 0.4 mg Quantity: 90 tablet Refills: 12 rosuvastatin 40 mg Tab Commonly known as: CRESTOR Take 1 tablet by mouth every evening. What changed: ?? medication strength ?? how much to take ?? how to take this ?? when to take this 40 mg Quantity: 90 tablet Refills: 3 Continued medications, unchanged Dose Details buPROPion 150 mg Sr12 Commonly known as: WELLBUTRIN SR or ZYBAN Take 150 mg by mouth 2 times daily. 150 mg Refills: 0 colchicine 0.6 mg Tab Commonly known as: Colcrys Take 0.6 mg by mouth 2 times daily as needed (gout). 0.6 mg Refills: 0 cyclobenzaprine 10 mg Tab Commonly known as: FLEXERIL Take 10 mg by mouth nightly. 10 mg Refills: 0 DULoxetine 60 mg Cpdr Commonly known as: CYMBALTA Take 60 mg by mouth 2 times daily. 60 mg Refills: 0 gabapentin 300 mg Cap Commonly known as: NEURONTIN Take 300 mg by mouth 3 times daily. 2 tabs in morning, 2 tabs in evening and 3 tabs at bedtime 300 mg Refills: 0 levalbuterol 45 mcg/actuation Hfaa Commonly known as: XOPENEX HFA Inhale 1-2 puffs into the lungs every 6 hours as needed for Wheezing or Shortness of Breath. 1-2 puff Refills: 0 nicotine polacrilex 4 mg Lozg Commonly known as: COMMIT Place 1 lozenge inside cheek as needed for Smoking cessation. 4 mg Quantity: 100 tablet Refills: 0 oxyCODONE 10 mg Tab Commonly known as: ROXICODONE Take 10 mg by mouth 4 times daily as needed. 10 mg Refills: 0 pantoprazole 40 mg Tbec Commonly known as: PROTONIX Take 40 mg by mouth 2 times daily. 40 mg Refills: 0 pramipexole 0.5 mg Tab Commonly known as: MIRAPEX Take 0.5 mg by mouth nightly. 0.5 mg Refills: 0 topiramate 50 mg Tab Commonly known as: TOPAMAX Take 50 mg by mouth nightly. 50 mg Refills: 0 varenicline 0.5 mg (11)- 1 mg (42) Dspk Commonly known as: CHANTIX Take 0.5 mg by mouth daily. Day 1-3: Take 0.5 mg daily. Day 4-7: take 0.5 mg bid. Day 8 forward-take 1mg bid 0.5 mg Quantity: 53 tablet Refills: 0 STOPPED Medications furosemide 20 mg Tab Commonly known as: LASIX losartan 25 mg Tab Commonly known as: COZAAR metoprolol tartrate 50 mg Tab Commonly known as: LOPRESSOR Smoking Status at Discharge: Social History Tobacco Use Smoking Status Current Every Day Smoker ??? Packs/day: 0.50 ??? Types: Cigarettes Smokeless Tobacco Former User Tobacco Comment 1-2 cigarette a day since 2018, he was a heavy smoker. Instructions Given to Patient at Discharge: There are no outpatient Patient Instructions on file for this admission. General Instructions Call your doctor if: Chest pain, shortness of breath, pain or swelling in legs occurs. If you have non-emergent questions between now and the time of your follow up appointments: During 8am-5pm Thursday through Thursday call [phone] to speak with a nurse in the cardiology clinic All other times call [phone] and ask to speak to the manufacturer's service representative yeast fermentation attendant. Return to work: Ok to resume, no heavy lifting for one week (nothing over 10 lbs) Driving: No driving for 48 hours after catheterization. Follow up Appointments: PCP Coni Lim MD/Keo Ballard [phone] Your follow up appointment is scheduled for March 25, 2019 at 10 45 am Cardiology- Dr. Lawson - [phone] (First apt at [facility], then you will be seen at [facility] thereafter).Your follow up appointment is scheduled for Saturday April 13, 2019 at 1:15 pm Home oxygen therapy: N/A Arrangements for VNA/home care: none Discharge References/Attachments None Esperanza Collier APRN Cardiovascular Medicine Pager [phone] 03/16/2019 documented in this encounter Discharge Instructions * Discharge Instructions* Esperanza Collier APRN - 03/16/2019 3:00 PM EDT Call your doctor if: Chest pain, shortness of breath, pain or swelling in legs occurs. If you have non-emergent questions between now and the time of your follow up appointments: During 8am-5pm Thursday through Thursday call [phone] to speak with a nurse in the cardiology clinic All other times call [phone] and ask to speak to the manufacturer's service representative yeast fermentation attendant. Return to work: Ok to resume, no heavy lifting for one week (nothing over 10 lbs) Driving: No driving for 48 hours after catheterization. Follow up Appointments: PCP Coni Lim MD/Keo Ballard [phone] Your follow up appointment is scheduled for March 25, 2019 at 10 45 am Cardiology- Dr. Lawson - [phone] (First apt at [facility], then you will be seen at [facility] thereafter).Your follow up appointment is scheduled for Saturday April 13, 2019 at 1:15 pm Home oxygen therapy: N/A Arrangements for VNA/home care: none documented in this encounter Medications at Time of Discharge Medication Sig Dispensed Refills Start Date End Date metoprolol succinate (TOPROL-XL) 100 mg Tablet Sustained [...] tablet Take 10 mg by mouth nightly. nitroGLYcerin (NITROSTAT) 0.4 mg Tablet, Sublingual Place 1 tablet under the tongue every 5 minutes as needed for Chest pain. 90 tablet 12 03/16/2019 06/10/2021 amLODIPine (NORVASC) 2.5 mg Tablet Take 1 tablet by mouth daily. 90 tablet 3 03/17/2019 06/10/2021 aspirin 81 mg Tablet, Chewable Take 81 mg by mouth daily. 30 tablet 3 09/15/2017 06/10/2021 nicotine polacrilex (COMMIT) [address] 1 lozenge inside cheek as needed for Smoking cessation. 100 tablet 11/25/2016 2021 varenicline (CHANTIX) 0.5 mg (11)- 1 mg (42) Tablets, Dose Pack Take 0.5 mg by mouth daily. Day 1-3: Take 0.5 mg daily. Day 4-7: take 0.5 mg bid. Day 8 forward-take 1mg bid 53 tablet 11/25/2016 2021 oxyCODONE (ROXICODONE) 10 mg Tablet Take 10 mg by mouth 4 times daily as needed. 2021 documented as of this encounter Progress Notes * Heather Jenkins RN - 03/16/2019 3:55 PM EDT OUTCOME EVALUATION NOTE: OUTCOME SUMMARY: Tele disconnected, PIVs removed. Discharge education given to patient; questions answered. PLAN MOVING FORWARD: Follow up appointments * Panda Walters MSW - 03/16/2019 2:56 PM EDT Patient is medically ready for discharge this afternoon. His family car is broken down and his wifedoes not drive. Have arranged for [facility] to transport patient home at 4 pm. * Wale Mckeon MD - 03/16/2019 10:17 AM EDT Inpatient Cardiology Progress Note Patient Name: Romeo Coe Service: MINISTER HELPER / PA Responsible Attending: Wale Mckeon MD Reason for continued hospitalization: Undifferentiated Chest Pain, awaiting CTA Active Problems: Active Hospital Problems Diagnosis ??? Chest pain ??? Smoker ??? HTN (hypertension) ??? DM (diabetes mellitus) ??? GERD (gastroesophageal reflux disease) Resolved Hospital Problems Diagnosis Date Resolved ??? ACS (acute coronary syndrome) 03/15/2019 Interval History: For cardiac catheterization which revealed nonobstructive disease. He is continued to experience occasional episodes of chest discomfort, which was relieved by his home medications of oxycodone and cyclobenzaprine. Symptoms could be in the setting of coronary vasospasm, however also be noncardiac in etiology. He is in agreement with plan for CTA today. Feels well upon rounds today. Review of Systems: Review of Systems Constitutional: Negative. Respiratory: Negative for shortness of breath. Cardiovascular: Positive for chest pain. Negative for palpitations and leg swelling. Neurological: Negative for syncope, weakness and light-headedness. All other systems reviewed and are negative. Telemetry: HR: Heart Rate: [61-67] , SR/SB Meds: Scheduled Meds: ??? metoprolol tartrate 25 mg Oral Q6H SONIA ??? amLODIPine 2.5 mg Oral Daily ??? sodium chloride 0.9 % (flush) 5 mL Intravenous BID ??? aspirin 81 mg Oral Daily ??? buPROPion 150 mg Oral BID ??? cyclobenzaprine 10 mg Oral Nightly ??? DULoxetine 60 mg Oral BID ??? pantoprazole 40 mg Oral BID ??? rosuvastatin 40 mg Oral QPM ??? topiramate 50 mg Oral Nightly ??? sodium chloride 0.9 % (flush) 5 mL Intravenous BID ??? sodium chloride 0.9 % (flush) 5 mL Intravenous Q12H ? ? insulin lispro 1-4 Units Subcutaneous 4 Times Daily AC & HS ??? gabapentin 300 mg Oral BID And ??? gabapentin 600 mg Oral Nightly Continuous Infusions: PRN Meds:sodium chloride 0.9 % (flush), lidocaine, oxyCODONE, Glucose 40% oral gel OR dextrose OR glucagon (human recombinant), sodium chloride 0.9 % (flush), nitroGLYcerin, acetaminophen Physical Exam: Vital Signs: Last value Range last 12 hrs Temperature Temp: 36.5 ??C (97.7 ??F) Temp: [36.5 ??C (97.7 ??F)-36.6 ??C (97.9 ??F)] Heart Rate Heart Rate: 67 Heart Rate: [61-67] Blood Pressure BP: 134/77 BP: (96-134)/(60-77) Respiratory Rate Resp: 18 Resp: [16-18] SpO2 SpO2: 95 % SpO2: [95 %-96 %] Physical Exam Constitutional: He is oriented to person, place, and time. He appears well- developed and well-nourished. HENT: Head: Normocephalic and atraumatic. Eyes: Pupils are equal, round, and reactive to light. Neck: No JVD present. Cardiovascular: Normal rate and regular rhythm. Right wrist is clean, dry and intact. No hematoma or ooze. Radial pulse is present. Intact color, sensation and motion. Capillary refill is under 2 seconds. Pulmonary/Chest: Effort normal and breath sounds normal. Abdominal: Soft. Bowel sounds are normal. Musculoskeletal: He exhibits no edema. Neurological: He is alert and oriented to person, place, and time. Skin: Skin is warm and dry. Psychiatric: He has a normal mood and affect. His behavior is normal. Nursing note and vitals reviewed. Lab Comments: Recent Labs 03/16/19 0507 03/15/19 0501 03/14/19 0853 WBC 6.6 5.9 6.3 HGB 15.6 14.6 14.9 HCT 45.4 43.1 44.2 PLATELET 154 156 156 No results for input(s): INR in the last 168 hours. Recent Labs 03/16/19 0507 03/15/19 0501 03/14/19 0328 03/14/19 0150 NA 138 142 140 Not Perf K 3.6 3.8 3.7 Not Perf CL 106 109* 108* Not Perf CO2 20* 23 -- 22 BUN 10 11 -- 10 CREATININE 0.91 0.90 -- 1.00 No results for input(s): AST, ALT, ALKPHOS, BILITOT, BILIDIR in the last 168 hours. Recent Labs 03/16/19 0507 03/15/19 0501 03/14/19 0150 CALCIUM 9.2 9.1 8.5 MAGNESIUM -- -- 0.81 Recent Labs 03/15/19 1117 03/14/19 1510 03/14/19 0853 TROPONINT <0.01 <0.01 <0.01 Pertinent Radiographic/Diagnostic Results: TTE 03/14/19 SUMMARY: 1. There is normal global left ventricular systolic function. The quantitative left ventricular ejection fraction by biplane Mcleod's method is 63%. There are no left ventricular segmental wall motion abnormalities. 2. The right ventricle is normal in size. Right ventricular global systolic function is normal. 3. There is no hemodynamically significant valve disease. 4. When compared with study dated 08/2017, no significant change is noted. 5. See remainder of report for additional findings. Cardiac catheterization 03/14/19 Hemodynamics: Left Heart Pressures Resting: Syst Diast EDP a v m Ao 119 68 90 LV 113 12 Coronary Angiography: Dominance: Right Left Main The left main was normal, [...] RCA. The RPDA was moderate in size. Vascular Access: Vascular Access Management: Mechanical Compression of the right radial artery access site was performed. Conclusions: * Two vessel coronary artery disease (LAD and RCA) Complications/Events: The patient had no complications during these procedures. Comments: No obstructive lesions to explain resting pain are seen; no objective measures of ischemia (negative trop, ECG and no stress testing.) Recommend medical management. Discussed with Dr Mckeon. Assessment: Mr. Romeo Coe is a 53 y/o active smoker male with a pmhx of ASCVD s/p multiple JACINDA PCIs mainly to the mid LAD and RCA in 2018 following UAP, DM2, HTN, HLD, TIA and GERD who presented to the ED with accelerating chest pain concerning for UA. He was sent for cardiac catheterization yesterday which revealed nonobstructive coronary disease on the preliminary report, awaiting final report at this time. His echocardiogram revealed an LVEF of 63% with no wall motion abnormalities or hemodynamically significant valve disease. Medications were since adjusted for management of a possible coronaryvasospasm, however in the setting of initiation of M. Cassie the patient became mildly hypotensive with systolic blood pressure in the low 90s and symptomatic. This was subsequently discontinued and he was started on amlodipine 2.5 mg. Beta- agatha dosing has also been titrated down for a total daily dose of 100 mg daily, rosuvastatin uptitrated to 40 mg daily, and losartan 12.5 mg held at this time due to his hypotensive episode overnight. It will be recommended to resume TRAN/ARB therapy as an outpatient in the setting of his diabetes. Patient is in agreement with plan for medication adjustment today with plan for discharge tomorrow. ?? Chest Discomfort - Undifferentiated - coronary vasospasm vs non-cardiac etiology - Continue ASA 81mg, Rosuvastatin 40 mg - Metoprolol dose decreased to 25 mg q6h - LHC with non obstructive disease, and Echo with preserved LVEF, no WMAs, as above - Continue amlodipine 2.5 mg - CTA to rule out PE today, low suspicion ?? Type 2 DM - Hgba1c 6.8% - Not on any home medications - Continue with insulin sliding scale, frequent glucose monitoring, carb controlled diet when not NPO ?? Relative Hypotension - BP: (96-134)/(60-77) this am, asymptomatic - Losartan 12.5 mg held, continue metoprolol at reduced dosing - Started on amlodipine 2.5 mg in setting of suspected coronary vasospasm, would recommend re-nitiation of TRAN/ARB therapy when BP allows Hyperlipidemia -Total cholesterol 207, HDL 28, triglyceride 256, LDL 128 - Continue Rosuvastatin 40 mg daily Chronic pain/fibromyalgia - Continue with his home medications - Oxycodone 10 mg p.o. every 4 hours as needed - Duloxetine 60 mg p.o. twice daily - Cyclobenzaprine 10 mg p.o. at night - Gabapentin 600 mg p.o. 3 times daily ?? GERD - Pantoprazole 40 mg p.o. twice daily. ?? Smoking Cessation - Still smokes 1-2 cigarette a day and not willing to see counseling team. - Nicotine patch/gums as needed. ?? CODE STATUS: Full code Discussed with MD Esperanza Brar [facility] Cardiovascular Medicine Pager [phone] 03/16/2019 Attending Infant Caregiver Addendum: This patient was seen in conjunction with Esperanza Collier as part of a shared visit. I have independently interviewed and examined the patient and reviewed the pertinent diagnostic information. I agree with the principal findings documented above. The assessment and plan were formulated in discussion with me. Ruled out PE with CT today. Ready for discharge on medical therapies. Wale Mckeon MD, [facility] Staff Infant Caregiver pager [phone] * Jacqueline Montes De Oca RN - 03/15/2019 10:45 AM EDT Chest Pain ..See the written copy of this report in the patient's paper medical record. These results did not interface directly into the electronic medical record and are summarized here. See Note from PA. VS screen. PA and MD notified/ Stat EKG, noted as unchanged by PA. * Wale Mckeon MD - 03/15/2019 10:28 AM EDT Inpatient Cardiology Progress Note Patient Name: Romeo Coe Service: MINISTER HELPER / PA Responsible Attending: Wale Mckeon MD Reason for continued hospitalization: Evaluation and management of unstable angina S/p [facility] Medication adjustment Active Problems: Active Hospital Problems Diagnosis ??? Chest pain ??? Smoker ??? HTN (hypertension) ??? DM (diabetes mellitus) ??? GERD (gastroesophageal reflux disease) Resolved Hospital Problems Diagnosis Date Resolved ??? ACS (acute coronary syndrome) 03/15/2019 Interval History: For cardiac catheterization yesterday revealed nonobstructive coronary disease onpreliminary report, final report pending at this time. Had no further intervention at that time. Initially started on Imdur 30 mg in setting of possible coronary vasospasm to explain his chest discomfort, however his blood pressure dropped to the low 90s overnight and he became dizzy and symptomatic. Metoprol and Imdur were dosing held this morning, blood pressure has since improved to systolic of low 100s without further episodes of lightheadedness. Upon rounds he reports that he was not feeling well overnight and is generally feeling weak at this time. He is in agreement with medication adjustment today with plan for discharge home tomorrow. Review of Systems: Review of Systems Constitutional: Negative. Respiratory: Negative for shortness of breath. Stridor: Cardiovascular: Negative for chest pain, palpitations and leg swelling. Neurological: Positive for weakness and light-headedness. Negative for syncope. All other systems reviewed and are negative. Telemetry: HR: Heart Rate: [59-65] , SR/SB Meds: Scheduled Meds: ??? metoprolol tartrate 25 mg Oral Q6H SONIA ??? amLODIPine 2.5 mg Oral Daily ??? sodium chloride 0.9 % (flush) 5 mL Intravenous BID ??? aspirin 81 mg Oral Daily ??? buPROPion 150 mg Oral BID ??? cyclobenzaprine 10 mg Oral Nightly ??? DULoxetine 60 mg Oral BID ??? pantoprazole 40 mg Oral BID ??? rosuvastatin 40 mg Oral QPM ??? topiramate 50 mg Oral Nightly ??? sodium chloride 0.9 % (flush) 5 mL Intravenous BID ??? sodium chloride 0.9 % (flush) 5 mL Intravenous Q12H ? ? insulin lispro 1-4 Units Subcutaneous 4 Times Daily AC & HS ??? gabapentin 300 mg Oral BID And ??? gabapentin 600 mg Oral Nightly Continuous Infusions: PRN Meds:sodium chloride 0.9 % (flush), lidocaine, oxyCODONE, Glucose 40% oral gel OR dextrose OR glucagon (human recombinant), sodium chloride 0.9 % (flush), nitroGLYcerin, acetaminophen Physical Exam: Vital Signs: Last value Range last 12 hrs Temperature Temp: 36.5 ??C (97.7 ??F) Temp: [36.5 ??C (97.7 ??F)] Heart Rate Heart Rate: 62 Heart Rate: [59-65] Blood Pressure BP: 102/63 BP: (93-102)/(61-65) Respiratory Rate Resp: 16 Resp: [15-25] SpO2 SpO2: 98 % SpO2: [98 %-99 %] Physical Exam Constitutional: He is oriented to person, place, and time. He appears well- developed and well-nourished. HENT: Head: Normocephalic and atraumatic. Eyes: Pupils are equal, round, and reactive to light. Neck: No JVD present. Cardiovascular: Normal rate and regular rhythm. Right wrist is clean, dry and intact. No hematoma or ooze. Radial pulse is present. Intact color, sensation and motion. Capillary refill is under 2 seconds. Pulmonary/Chest: Effort normal and breath sounds normal. Abdominal: Soft. Bowel sounds are normal. Musculoskeletal: He exhibits no edema. Neurological: He is alert and oriented to person, place, and time. Skin: Skin is warm and dry. Psychiatric: He has a normal mood and affect. His behavior is normal. Nursing note and vitals reviewed. Lab Comments: Recent Labs 03/15/19 0501 03/14/19 0853 03/14/19 0150 WBC 5.9 6.3 8.0 HGB 14.6 14.9 15.0 HCT 43.1 44.2 42.4 PLATELET 156 156 192 No results for input(s): INR in the last 168 hours. Recent Labs 03/15/19 0501 03/14/19 0328 03/14/19 0150 NA 142 140 Not Perf K 3.8 3.7 Not Perf CL 109* 108* Not Perf CO2 -- BUN 11 -- 10 CREATININE 0.90 -- 1.00 No results for input(s): AST, ALT, ALKPHOS, BILITOT, BILIDIR in the last 168 hours. Recent Labs 03/15/19 0501 03/14/19 0150 CALCIUM 9.1 8.5 MAGNESIUM -- 0.81 Recent Labs 03/14/19 1510 03/14/19 0853 03/14/19 0328 TROPONINT <0.01 <0.01 <0.01 Pertinent Radiographic/Diagnostic Results: TTE 03/14/19 SUMMARY: 1. There is normal global left ventricular systolic function. The quantitative left ventricular ejection fraction by biplane Mcleod's method is 63%. There are no left ventricular segmental wall motion abnormalities. 2. The right ventricle is normal in size. Right ventricular global systolic function is normal. 3. There is no hemodynamically significant valve disease. 4. When compared with study dated 08/2017, no significant change is noted. 5. See remainder of report for additional findings. Cardiac catheterization 03/14/19 Preliminary: Non-obstructive coronary disease, final report pending Assessment: Mr. Romeo Coe is a 53 y/o active smoker male with a pmhx of ASCVD s/p multiple JACINDA PCIs mainly to the mid LAD and RCA in 2018 following UAP, DM2, HTN, HLD, TIA and GERD who presented to the ED with accelerating chest pain concerning for UA. He was sent for cardiac catheterization yesterday which revealed nonobstructive coronary disease on the preliminary report, awaiting final report at this time. His echocardiogram revealed an LVEF of 63% with no wall motion abnormalities or hemodynamically significant valve disease. Medications were since adjusted for management of a possible coronaryvasospasm, however in the setting of initiation of M. Cassie the patient became mildly hypotensive with systolic blood pressure in the low 90s and symptomatic. This was subsequently discontinued and he was started on amlodipine 2.5 mg. Beta- agatha dosing has also been titrated down for a total daily dose of 100 mg daily, rosuvastatin uptitrated to 40 mg daily, and losartan 12.5 mg held at this time due to his hypotensive episode overnight. It will be recommended to resume TRAN/ARB therapy as an outpatient in the setting of his diabetes. Patient is in agreement with plan for medication adjustment today with plan for discharge tomorrow. ?? Chest Discomfort, likely in setting of Coronary Vasospasm - Continue ASA 81mg, Rosuvastatin 40 mg - Plavix discontinued post cath - Metoprolol dose decreased to 25 mg q6h - LHC with non obstructive disease, and Echo with preserved LVEF, no WMAs, as above - Add amlodipine 2.5 mg, imdur discontinued in setting of mild hypotension ?? Type 2 DM - Hgba1c 6.8% - Not on any home medications - Continue with insulin sliding scale, frequent glucose monitoring, carb controlled diet when not NPO ?? Relative Hypotension - Reportedly symptomatic with BP in the low 90s overnight - BP: (93-102)/(63-65) this am - Losartan 12.5 mg held, imdur 30 mg discontinued, metoprolol down titrated to 25 mg q6h - Started on amlodipine 2.5 mg in setting of suspected coronary vasospasm, would recommend re-nitiation of TRAN/ARB therapy when BP allows Hyperlipidemia -Total cholesterol 207, HDL 28, triglyceride 256, LDL 128 - Continue Rosuvastatin 40 mg daily Chronic pain/fibromyalgia - Continue with his home medications - Oxycodone 10 mg p.o. every 4 hours as needed - Duloxetine 60 mg p.o. twice daily - Cyclobenzaprine 10 mg p.o. at night - Gabapentin 600 mg p.o. 3 times daily ?? GERD - Pantoprazole 40 mg p.o. twice daily. ?? Smoking Cessation - Still smokes 1-2 cigarette a day and not willing to see counseling team. - Nicotine patch/gums as needed. ?? CODE STATUS: Full code Discussed with MD Esperanza Brar [facility] Cardiovascular Medicine Pager [phone] 03/15/2019 Attending Infant Caregiver Addendum: This patient was seen in conjunction with Esperanza Collier as part of a shared visit. I have independently interviewed and examined the patient and reviewed the pertinent diagnostic information. I agree with the principal findings documented above. The assessment and plan were formulated in discussion with me. # Unstable angina; no new explanatory lesion Optimizing medical regimen. Low HR/BP has limited us thus far. Wale Mckeon MD, [facility] Staff Infant Caregiver pager [phone] * Wale Mckeon MD - 03/14/2019 9:23 AM EDT Images from the original note were not included. Inpatient Cardiology Progress Note Patient Name: Romeo Coe Service: MINISTER HELPER / PA Responsible Attending: Wale Mckeon MD Reason for continued hospitalization: Evaluation and management of unstable angina Awaiting [facility] today Active Problems: Active Hospital Problems Diagnosis ??? ACS (acute coronary syndrome) Resolved Hospital Problems No resolved problems to display. Interval History: Admitted overnight in the setting of unstable angina. Troponins negative. TTE with preserved EF at 63% and no WMA. Awaiting [facility] today. Review of Systems: Review of Systems Constitutional: Negative. Respiratory: Negative for shortness of breath. Cardiovascular: Positive for chest pain (currently chest pain free). Negative for palpitations and leg swelling. Neurological: Negative for syncope and light-headedness. All other systems reviewed and are negative. Telemetry: HR: Heart Rate: [54-66] , SR/SB Meds: Scheduled Meds: ??? sodium chloride 0.9 % (flush) 5 mL Intravenous BID ??? aspirin 81 mg Oral Daily ??? buPROPion 150 mg Oral BID ??? cyclobenzaprine 10 mg Oral Nightly ??? DULoxetine 60 mg Oral BID ??? metoprolol tartrate 75 mg Oral Q6H SONIA ??? pantoprazole 40 mg Oral BID ??? rosuvastatin 40 mg Oral QPM ??? topiramate 50 mg Oral Nightly ??? sodium chloride 0.9 % (flush) 5 mL Intravenous BID ??? sodium chloride 0.9 % (flush) 5 mL Intravenous Q12H ? ? insulin lispro 1-4 Units Subcutaneous 4 Times Daily AC & HS ??? clopidogrel 75 mg Oral Daily ??? gabapentin 300 mg Oral BID And ??? gabapentin 600 mg Oral Nightly Continuous Infusions: ??? sodium chloride 0.9% 100 mL/hr (03/14/19 0259) ??? heparin (porcine) 1,000 Units/hr (03/14/19 0045) PRN Meds:sodium chloride 0.9 % (flush), lidocaine, oxyCODONE, Glucose 40% oral gel OR dextrose OR glucagon (human recombinant), sodium chloride 0.9 % (flush), nitroGLYcerin, sodium chloride 0.9 % (flush), acetaminophen, heparin (porcine) AND heparin (porcine) Physical Exam: Vital Signs: Last value Range last 12 hrs Temperature Temp: 36.5 ??C (97.7 ??F) Temp: [36.5 ??C (97.7 ??F)] Heart Rate Heart Rate: 54 Heart Rate: [54-66] Blood Pressure BP: 104/58 BP: (104-112)/(58-79) Respiratory Rate Resp: 11 Resp: [11-12] SpO2 SpO2: 98 % SpO2: [97 %-99 %] Physical Exam Constitutional: He is oriented to person, place, and time. He appears well- developed and well-nourished. HENT: Head: Normocephalic and atraumatic. Eyes: Pupils are equal, round, and reactive to light. Neck: No JVD present. Cardiovascular: Normal rate and regular rhythm. Pulmonary/Chest: Effort normal and breath sounds normal. Abdominal: Soft. Bowel sounds are normal. Musculoskeletal: He exhibits no edema. Neurological: He is alert and oriented to person, place, and time. Skin: Skin is warm and dry. Psychiatric: He has a normal mood and affect. His behavior is normal. Nursing note and vitals reviewed. Lab Comments: Recent Labs 03/14/19 0150 WBC 8.0 HGB 15.0 HCT 42.4 PLATELET 192 No results for input(s): INR in the last 168 hours. Recent Labs 03/14/19 0328 03/14/19 0150 NA 140 Not Perf K 3.7 Not Perf CL 108* Not Perf CO2 -- 22 BUN -- 10 CREATININE -- 1.00 No results for input(s): AST, ALT, ALKPHOS, BILITOT, BILIDIR in the last 168 hours. Recent Labs 03/14/19 0150 CALCIUM 8.5 MAGNESIUM 0.81 Recent Labs 03/14/19327 TROPONINT <0.01 Pertinent Radiographic/Diagnostic Results: TTE 03/14/19 SUMMARY: 1. There is normal global left ventricular systolic function. The quantitative left ventricular ejection fraction by biplane Mcleod's method is 63%. There are no left ventricular segmental wall motion abnormalities. 2. The right ventricle is normal in size. Right ventricular global systolic function is normal. 3. There is no hemodynamically significant valve disease. 4. When compared with study dated 08/2017, no significant change is noted. 5. See remainder of report for additional findings. Assessment: Mr. Romeo Coe is a 53 y/o active smoker male with a pmhx of ASCVD s/p multiple JACINDA PCIs mainly to the mid LAD and RCA in 2018 following UAP, DM2, HTN, HLD, TIA and GERD who presented to the ED with accelerating typical anginal episodes. Given the symptoms were somewhat reminiscent of his symptoms prior to PCI's and being responsive to NTG SL, chest pain is more likely to be cardiac in origin. No evidence of ischemia so far. However, given his multiple risk factors, strong family history and history of frequent in-stent restenosis, we will proceed with a cardiac catheterization. ?? Unstable angina Troponin neg x 1 Heparin drip as per the protocol Continue ASA 81mg and Clopidogrel 75 mg (not a home med) Rosuvastatin 40 mg p.o. daily (doubled home dose) Metoprolol tartrate 75 mg p.o. every 6 hours (equal to his home dose) NTG as needed EKG PRN Telemetry monitoring TTE with EF 62% and no WMA LHC today ?? Type 2 DM: Hgba1c 6.4% in 08/2017 Not on any medications Continue with insulin sliding scale here Carb controlled diet HgbA1c with next blood draw ?? HTN: BP: (104-112)/(58-79) Hold losartan prior to cardiac catheterization. Resume after cath is done. Monitor BP closely. ?? HLD: Continue with high intensity statin Lipid panel with next blood draw ?? Chronic pain/fibromyalgia: Continue with his home medications Oxycodone 10 mg p.o. every 4 hours as needed Duloxetine 60 mg p.o. twice daily Cyclobenzaprine 10 mg p.o. at night Gabapentin 600 mg p.o. 3 times daily ?? GERD: Pantoprazole 40 mg p.o. twice daily. ?? Smoking Cessation: Still smokes 1-2 cigarette a day and not willing to see counseling team. Nicotine patch/gums as needed. ?? DVT prophylaxis already on heparin drip ?? CODE STATUS: Full code Discussed with MD Siri Brar, DIRECT[employer] OF [employer] Pager [phone] 03/14/2019 Attending Infant Caregiver Addendum: This patient was seen in conjunction with Siri Bush as part of a shared visit. I have independently interviewed and examined the patient and reviewed the pertinent diagnostic information. I agree with the principal findings documented above. The assessment and plan were formulated in discussion with me. Pertinent Exam: JVP normal; lungs clear; RRR; no edema. Major issues addressed: # Unstable angina Plan: -Cath today; no explanatory lesion found; possible endothelial dysfunction or microvascular problem -Augment regimen today (include vasodilator) Wale Mckeon MD, FAC, [facility] Staff Infant Caregiver pager [phone] documented in this encounter H&P Notes * Ed Simpson MD - 03/14/2019 12:47 AM EDT Cardiology History and Physical Patient Name: Romeo Coe Date of : 1965 Age: 53 y.o. Hospital Admit Date: 03/14/2019 Inpatient Attending: Wale Mckeon MD PCP: Coni Lim MD Presenting Diagnosis/Chief Complaint: Chest pain Active Problem List: Active Hospital Problems Diagnosis ??? ACS (acute coronary syndrome) Resolved Hospital Problems No resolved problems to display. History of Present Illness: Mr. Romeo Coe is a 53 y/o male with a pmhx of CAD s/p multiple JACINDA PCIs to the mid LAD due tofrequent instent restenosis since 2011 and last JACINDA PCI to the RCA in 11/2016 following UAP, DM2, HTN, HLD, TIA and GERD who was transferred from [facility] with a diagnosis of UAP. He presented to the ED with worsening exertional chest pain that started 1 week ago and progressively worsening over the last week. The pain was substernal, 8/10 in severity with no radition. The episodes tended to resolve at rest. On the presentation day, he had a crushing like, 10/10 in severity,substernal chest pain while raising from his chair that radiated to his jaw and shoulder blades. Resting did not help reduce the pain. It was not identical to his previous angina that was pressure like pain. Associated with exertional shortness of breath and sweating. He took 2 NTG 5 minutes apart and 1 full dose aspirin and the pain subsided from 10/10 to 5/10. As the pain did not resolve completely, EMS was called. His [place] [facility] [place] in Aug 2017 when he presented with UAP. Cath showed the patency of previous stent in RCA but showed 40% lesion in the mid LAD and 45% stenosis in the RPDA. IFR was performed for these lesions and found to be insignificant. TTE showed no WMAs with LVEF 65%. On discharge, it was felt that his symptoms were not cardiac in nature. His Ranexa and Imdur were discontinued.He has been relatively well since then. He never needed NTG SL. In the ED, his BP improved after IVF boluses from 80s in systolic to 116/76 mm Hg, HR 77 bpm, SpO2:98% on RA. EKG showed NSR w/o ischemic findings, TropX2(-). Other labs are as follows WBC: 9.6, H&H 15.7/44.2, PLT: 214, BUN&Cre 12/1.03, Na: 139, K: 3.5, Cl: 105 and INR: 1.0. ASA 324 mg, Clopidogrel 300 mg and IVP Morphine 2 mg given. He was started on Heparin gtt and transferred [place] [facility] [place] cardiac cath. Past Medical History: Past Medical History: Diagnosis Date ??? Allergy ??? CAD (coronary artery disease), non-obstructive 05/31/2012 ??? Depression ??? DM (diabetes mellitus) 05/31/2012 ??? Dyslipidemia 05/31/2012 ??? GERD (gastroesophageal reflux disease) 05/31/2012 ??? HTN (hypertension) 05/31/2012 ??? Hx-TIA (transient ischemic attack) 06/03/2012 ??? Smoker 05/31/2012 Previous Diagnostics: TTE (09/13/2017) SUMMARY: ?? 1. Mild concentric left ventricular hypertrophy is observed. There is normal global left ventricular systolic function. Ejection fraction is estimated to be 65%. There are no left ventricular segmental wall motion abnormalities. 2. The right ventricle is normal in size. Right ventricular global systolic function is normal. 3. There is no hemodynamically significant valve disease. 4. See remainder of report for additional findings. ?? Coronary Angiography: (09/13/2017) Dominance: Right Left Main The left main was normal. Left Anterior Descending There was mild diffuse disease of the entire vessel segment of the left anterior descending artery (LAD). The mid segment of the LAD had a hazy single discrete 40% stenosis. The previously placed stent is patent. Left Circumflex There was mild diffuse disease of the entire vessel segment of the left circumflex artery (LCX). The previously placed stent is patent. Right Coronary Artery There was mild diffuse disease of the entire vessel segment of the right coronary artery (RCA). The proximal segment of the RCA had mild diffuse disease. The previously placed stent is patent. There also was moderate diffuse disease of the distal 1 segment of the RCA. The distal 2 segment of the RCA was ectatic. There was a 45% stenosis of the ostial segment of the right posterior descending branch (RPDA) of the RCA. Intravascular Imaging/Physiology: Instantaneous wave-free ratio (iFR) was determined across the 45% stenosis in the ostial RPDA using a 6 Fr JR 4 guiding catheter and a Verrata wire. Wire delivery was successful. The IFR across the 45% ostial RPDA lesion was 0.97. This lesion was not hemodynamically significant. Instantaneous wave-free ratio (iFR) was determined across the 40% stenosis in the mid LAD using a 6 Fr EBU 3.5 guiding catheter and a Verrata wire. Wire delivery was successful. The IFR across the 40% mid LAD lesion was 0.95. This lesion was not hemodynamically significant. Vascular Access: Vascular Access Angiogram: A selective angiogram at the right femoral artery revealed no significant obstructive disease. Vascular Access Management: A 6 Fr Perclose was deployed at the right femoral artery access site. Conclusions: * One vessel coronary artery disease (RCA) * IFR acorss proximal RPDA stenosis 0.97 (not significant). * IFR acorss mid LAD stenosis 0.95 (not significant). Surgical History/Problems: Past Surgical History: Procedure Laterality Date ??? CHOLECYSTECTOMY ??? HERNIA REPAIR ??? KNEE SURGERY Right ??? TONSILLECTOMY AND ADENOIDECTOMY Significant Family History: Family History Problem Relation Age of Onset ??? Myocardial Infarction Father 46 OR, CABG ??? Heart Disease Father ??? Diabetes Mother ??? Hypertension Mother ??? Hyperlipidemia Mother ??? Heart Disease Mother ??? Heart Disease Brother ??? Heart Disease Brother ??? Diabetes Brother ??? Diabetes Brother ??? Hypertension Brother ??? Hypertension Brother ??? Hyperlipidemia Brother ??? Hyperlipidemia Brother Father had premature CAD rerquiring CABGx4 at the age of 48. Mother had CAD in her 60s. They were both diabetic. 2 brother have both DM, HTN, HLD Social History: Social History Socioeconomic History ??? Marital status: Spouse name: Not on file ??? Number of children: 3 ??? Years of education: Not on file ??? Highest education level: Not on file Occupational History ??? Occupation: Disabled Social Needs ??? Financial resource strain: Not on file ??? Food insecurity: Worry: Not on file Inability: Not on file ??? Transportation needs: Medical: Not on file Non-medical: Not on file Tobacco Use ??? Smoking status: Current Every Day Smoker Packs/day: 0.50 Types: Cigarettes ??? Smokeless tobacco: Former User ??? Tobacco comment: 1-2 cigarette a day since 2018, he was a heavy smoker. Substance and Sexual Activity ??? Alcohol use: No Comment: in past month ??? Drug use: Yes Types: Marijuana Comment: daily 4-5 times a day. ??? Sexual activity: Yes Partners: Female Lifestyle ??? Physical activity: Days per week: Not on file Minutes per session: Not on file ??? Stress: Not on file Relationships ??? Social connections: Talks on phone: Not on file Gets together: Not on file Attends uatsdin service: Not on file Active member of club or organization: Not on file Attends meetings of clubs or organizations: Not on file Relationship status: Not on file ??? Intimate partner violence: Fear of current or ex partner: Not on file Emotionally abused: Not on file Physically abused: Not on file Forced sexual activity: Not on file Other Topics Concern ??? Not on file Social History Narrative Lives with and daughter at home in [place], [place]. He is disabled now. 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 Independent of his ADLs He does some back yard work, He walks a few time a week outside. His mother in 2011. REVIEW OF SYSTEMS: General ROS: No fatigue or weakness. Psychological: no anxiety / Depression Ophthalmic: No blurred vision or watery or red eyes. ENT: Negative for ear discharge or running nose or cold or throat swelling. Allergy: negative for itchy/watery eyes Heme: Negative for bleeding, bruising, fatigue, jaundice, night sweats Endocrine: negative for polydipsia/polyuria/ heat intolerance Respiratory: As in HPI CVS: As in HPI GI: No abd pain, change in bowel habits, or black or bloody stools Genitourinary: No dysuria, trouble voiding, or hematuria MSK: negative for joint pain, joint stiffness or joint swelling Neurological: No TIA or stroke symptoms Medications: Medications Prior to Admission Medication Sig Dispense Refill Last Dose ??? aspirin 81 mg Tablet, Chewable Take 81 mg by mouth daily. (Patient taking differently: Take 325mg by mouth daily.) 30 tablet 3 03/14/2019 at Unknown time ??? rosuvastatin (CRESTOR) 20 mg Tablet Past Week at Unknown time ??? meTOPROLOL tartrate (LOPRESSOR) 50 mg Tablet Take 100 mg by mouth 2 times daily. 03/13/2019 at Unknown time ??? losartan (COZAAR) 25 mg Tablet Take 12.5 mg by mouth daily. 03/13/2019 at Unknown time ??? pantoprazole (PROTONIX) 40 mg Tablet, Delayed Release (E.C.) Take 40 mg by mouth 2 times daily.03/13/2019 at Unknown time ??? buPROPion (WELLBUTRIN SR OR ZYBAN) 150 mg Tablet Sustained Release Take 150 mg by mouth 2 timesdaily. 03/13/2019 at Unknown time ??? topiramate (TOPAMAX) 50 mg Tablet Take 50 mg by mouth nightly. 03/13/2019 at Unknown time ??? gabapentin (NEURONTIN) 300 mg capsule Take 300 mg by mouth 3 times daily. 2 tabs in morning, 2 tabs in evening and 3 tabs at bedtime 03/13/2019 at Unknown time ??? nitroGLYcerin (NITROSTAT) 0.[address] 0.4 mg under the tongue every 5 minutes as needed. 03/14/2019 at Unknown time ??? DULoxetine (CYMBALTA) 60 mg capsule Take 60 mg by mouth 2 times daily. 03/13/2019 at Unknown time ??? nicotine polacrilex (COMMIT) [address] 1 lozenge inside cheek as needed for Smoking cessation. 100 tablet 0 Unknown at Unknown time ??? varenicline (CHANTIX) 0.5 mg (11)- 1 mg (42) Tablets, Dose Pack Take 0.5 mg by mouth daily. Day1-3: Take 0.5 mg daily. Day 4-7: take 0.5 mg bid. Day 8 forward-take 1mg bid 53 tablet 0 Unknown atUnknown time ??? colchicine (COLCRYS) 0.6 mg Tablet Take 0.6 mg by mouth 2 times daily as needed (gout). Unknownat Unknown time ??? oxyCODONE (ROXICODONE) 10 mg Tablet Take 10 mg by mouth 4 times daily as needed. Unknown at Unknown time ??? levalbuterol (XOPENEX HFA) 45 mcg/actuation HFA Aerosol Inhaler Inhale 1-2 puffs into the lungsevery 6 hours as needed for Wheezing or Shortness of Breath. Unknown at Unknown time ??? pramipexole (MIRAPEX) 0.5 mg Tablet Take 0.5 mg by mouth nightly. Unknown at Unknown time ??? furosemide (LASIX) 20 mg tablet Take 20 mg by mouth daily as needed. Unknown at Unknown time ??? cyclobenzaprine (FLEXERIL) 10 mg tablet Take 10 mg by mouth nightly. Unknown at Unknown time Allergies: Allergies Allergen Reactions ??? Thallium-201 Severe cardiac event ??? Lisinopril Other (See Comments) cough ??? Paper Tape [Adhesive Tape] Rash PHYSICAL EXAM: Last set of vital signs: BP 112/79 (BP Location (NBP): Right arm) Pulse 60 Temp 36.5 ??C (97.7 ??F) (Oral) Resp 12 Ht 177.8 cm (5' 10) Comment: reported Wt 101.3 kg (223 lb 5.2 oz) SpO2 97% BMI 32.04 kg/m?? Gen/Constitutional: Alert, appears comfortable. Mildly obese male. HEENT: ZULEIMA, EOMI, No conjunctival pallor or scleral icterus Cardiac/CVS: No tenderness to palpation. RRR.S1 S2 present and normal. No MRG. Negative elevated JVP. Pulm/Chest: No crackles or wheezing Abd/GI: No tenderness, not distended, soft, BS present, no organomegaly Musculoskeletal: no edema . 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 No ST/T changes Chest x-ray pending LABS: Recent Results (from the past 24 hour(s)) BMP w/fasting Glucose Result Value Ref Range Glucose Fasting 110 (H) 65 - 99 mg/dL BUN 10 10 - 20 mg/dL Creatinine 1.00 0.80 - 1.50 mg/dL Sodium Not Perf 135 - 145 Potassium Not Perf 3.5 - 5.0 Chloride Not Perf 98 - 107 CO2 22 22 - 31 mmol/L Anion Gap Unable to Calculate 5 - 15 mmol/L Calcium 8.5 8.5 - 10.5 mg/dL eGFR 87 >=60 mL/min/1.73 m?? eGFR 101 >=60 mL/min/1.73 m?? Magnesium Result Value Ref Range Magnesium 0.81 0.69 - 1.07 mmol/L pro-Brain Natriuretic Peptide Result Value Ref Range ProBNP 12 <=125 pg/mL Hemogram Result Value Ref Range WBC 8.0 4.0 - 9.5 x10(3)/mcL RBC 4.98 4.58 - 5.54 x10(6)/mcL Hemoglobin 15.0 13.7 - 16.5 gm/dL Hematocrit 42.4 40.5 - 48.5 % MCV 85.1 82.9 - 93.1 fL MCH 30.1 27.5 - 32.1 pg MCHC 35.4 32.0 - 35.7 gm/dL Platelets 192 145 - 357 x10(3)/mcL RDWSD 39.9 36.0 - 45.0 fL RDWCV 12.9 11.4 - 13.8 % MPV 11.7 7.6 - 12.9 fL nRBC % Auto 0.0 % nRBC Abs Auto 0.000 0.000 - 0.000 x10(3)/mcL Differential, Automated Result Value Ref Range Neutrophils % 38.9 % Neutr Abs (ANC) 3.10 1.70 - 6.10 x10(3)/mcL Lymphocytes % 49.6 % Lymphocytes Abs 4.0 (H) 0.9 - 3.2 x10(3)/mcL Monocytes % 6.3 % Monocyte Abs 0.5 0.3 - 0.9 x10(3)/mcL Eosinophils % 4.1 % Eosinophils Abs 0.3 0.0 - 0.4 x10(3)/mcL Basophils % 0.8 % Basophils Abs 0.1 0.0 - 0.1 x10(3)/mcL Immature Gran % 0.30 % Lisseth Gran Abs 0.02 0.00 - 0.04 x10(3)/mcL Heparin (unfractionated) Level Result Value Ref Range Heparin UFH Level 0.57 IU/mL Potassium Result Value Ref Range Potassium 3.7 3.5 - 5.0 mmol/L Sodium Result Value Ref Range Sodium 140 135 - 145 mmol/L Troponin Result Value Ref Range Troponin-T <0.01 0.00 - 0.00 ng/mL Chloride Result Value Ref Range Chloride 108 (H) 98 - 107 mmol/L A&P: Mr. Romeo Coe is a 53 y/o active smoker male with a pmhx of ASCVD s/p multiple JACINDA PCIs mainly to the mid LAD and RCA in 2018 following UAP, DM2, HTN, HLD, TIA and GERD who presented to the ED with accelerating typical anginal episodes. Given the symptoms were somewhat reminiscent of his symptoms prior to PCI's and being responsive to NTG SL, chest pain is more likely to be cardiac in origin. No evidence of ischemia so far. However, given his multiple risk factors, strong family history and history of frequent in-stent restenosis, I would favor to cardiac catheterization. We will treat him with DAPTs, BBs, high dose statins and UFH drip as per the protocol and continuation on his regular home medication. ASCVD: s/p multiple PCIs since 2011. [place] [facility] [place] that showed the patency of previously placed stents. IFr was performed for mid LAD and RPDA. Not remarkable ACS: Most likely unstable angina pectoris in the setting of typical anginal episodes, strong familyhistory for premature CAD and negative cardiac enzymes. EKG did not show any findings concerning for ischemia. He is not in heart failure on exam. DANIEL 4 JANA 67 [place] 1 Heparin drip as per the protocol Clopidogrel 75 mg p.o. daily ASA 81 mg p.o. daily Rosuvastatin 40 mg p.o. daily (doubled home dose) Metoprolol tartrate 75 mg p.o. every 6 hours (equal to his home dose) NTG as needed EKG PRN Telemetry monitoring TTE a.m. Cardiac catheterization was planned. The consent was obtained. He does not have any history of recent major bleeding. No contrast allergy was reported. He is not anticipating any noncardiac surgery in the near future. Type 2 DM: Not on any medications Continue with insulin sliding scale Carb controlling diet. HTN: Currently stable. Hold losartan prior to cardiac catheterization. Resume after cath is done. Monitor BP closely. HLD: Continue with high intensity statins. Chronic pain/fibromyalgia: Currently stable Continue with his home medications Oxycodone 10 mg p.o. every 4 hours as needed Duloxetine 60 mg p.o. twice daily Cyclobenzaprine 10 mg p.o. at night Gabapentin 600 mg p.o. 3 times daily GERD: Stable Pantoprazole 40 mg p.o. twice daily. Smoking Cessation: Still smokes 1-2 cigarette a day and not willing to see counseling team. Nicotine patch/gums as needed. Diet: N.p.o. for now DVT prophylaxis already on heparin drip CODE STATUS: Full code Ed Simpson MD Cardiology Hospitalist Provider #: [id number] 03/14/2019 documented in this encounter Miscellaneous Notes * Plan of Care - Beverly Chan RN - 03/16/2019 5:20 AM EDT Problem: Patient Care Overview Goal: Plan of Care Review Outcome: Ongoing (Interventions Implemented as Appropriate) 03/14/1954103/15/192030 Coping/Psychosocial Plan Of Care Reviewed With -- patient Plan of Care Review Progress progress toward functional goals as expected -- OUTCOME EVALUATION NOTE: OUTCOME SUMMARY: VSS, pt c/o 4/10 CP at beginning of shift, MD notified, EKG done (no changes, PRN oxy and scheduled flexeril given with good effect. 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 Pt able to rest between care. PLAN MOVING FORWARD: Discharge planning as appropriate INDIVIDUALIZED FALL PREVENTION INTERVENTIONS: Patient-specific fall risk factors per assessment: [current deficits]: Telemetry, pulse ox, unfamiliar environment Assistance [level of assistance required for transfers and ambulation]: SBA, non-stick socks/slippers Supervision [direct monitoring required during toileting and ADLs]: Eyes on, arms reach, hand on Surveillance [continuous indirect monitoring]: Hourly purposeful rounding, call perez in reach Patient-specific fall prevention interventions for sensory deficits provided, if applicable: Lighting adjusted for task/safety CPG GOAL OUTCOME EVALUATION: Ongoing Goal: Fall Prevention-Safe Patient Handling Outcome: Ongoing (Interventions Implemented as Appropriate) 03/15/192030 Restraint Interventions Safety Promotion/Fall Prevention activity supervised;fall prevention program maintained;nonskid shoes/slippers when out of bed;safety round/check completed Activity Activity Type activity adjusted per tolerance Activity Assistance Provided assistance, stand-by Assistive Device Utilized none Gray Fall Risk History of Falling 0 Secondary Diagnosis 15 Ambulatory Aids 0 Intravenous Therapy/Heparin/Saline Lock 20 Gait/Transferring 0 Mental Status 0 Score 35 OTHER Gray Fall Risk Med Positioning Body Position independent Goal: Infection Control Outcome: Ongoing (Interventions Implemented as Appropriate) 03/15/192030 Safety Interventions Isolation Precautions standard precautions maintained Infection Prevention rest/sleep promoted;environmental surveillance performed Coping Strategies Supportive Measures active listening utilized;decision-making supported;positive reinforcement provided;self-care encouraged;verbalization of feelings encouraged Problem: Cardiac: ACS (Acute Coronary Syndrome) (Adult) Goal: Signs and Symptoms of Listed Potential Problems Will be Absent, Minimized or Managed (Cardiac: ACS) Signs and symptoms of listed potential problems will be absent, minimized or managed by discharge/transition of care (reference Cardiac: ACS (Acute Coronary Syndrome) (Adult) CPG). Outcome: Ongoing (Interventions Implemented as Appropriate) 03/15/19 08 Cardiac: ACS (Acute Coronary Syndrome) Problems Assessed (Acute Coronary Syndrome (ACS)) all Problems Present (Acute Coronary Syndrome (ACS)) none * Plan of Care - Esperanza Collier APRN - 03/15/2019 11:05 AM EDT Called to bedside by RN her new onset chest pain. Patient had an cardiac catheterization yesterday which revealed nonobstructive coronary disease. He described this as a chest pressure that was not as severe but similar to what brought him in here. The pain did not improve with sitting up and he notes that initially came on while he was trying to do that. It is not positional, and there is no tenderness to palpation. Chest pressure came on systolic blood pressure dropped to the 70s, but quicklyrebounded to his baseline to low 100s. ECG is nonischemic. Discussed with Dr. Mckeon and decision made to defer nitrates for now given his hypotension. Is been started on amlodipine 2.5 mg this morning due to his suspected coronary vasospasm. He is not tachycardic and no longer hypotensive, low suspicion for PE, symptoms also do not seem to be consistent with pericarditis. Will repeat troponin x1.He reports symptoms have improved since initial onset. 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 No interventions. Right radial cath site WDL. VSS. No complaints of chest pain or discomfort. SR/SB on tele. Will continue to monitor. PLAN MOVING FORWARD: Medication changes D/c planning as appropriate INDIVIDUALIZED FALL PREVENTION INTERVENTIONS: Patient-specific fall risk factors per assessment: [current deficits]: Unfamiliar environment, telemetry wires Assistance [level of assistance required for transfers and ambulation]: SBA Supervision [direct monitoring required during toileting and ADLs]: indep Surveillance [continuous indirect monitoring]: Telemetry, hourly rounding Patient-specific fall prevention interventions for sensory deficits provided, if applicable: yes CPG GOAL OUTCOME EVALUATION: Ongoing Goal: Fall Prevention-Safe Patient Handling Outcome: Ongoing (Interventions Implemented as Appropriate) 03/14/19 0803/14/19 0900 03/14/19 1400 Restraint Interventions Safety Promotion/Fall Prevention -- -- safety round/check completed Activity Activity Type -- -- activity adjusted per tolerance Activity Assistance Provided -- independent -- Gray Fall Risk History of Falling 0 -- -- Secondary Diagnosis 0 -- -- Ambulatory Aids 0 -- -- Intravenous Therapy/Heparin/Saline Lock 20 -- -- Gait/Transferring 0 -- -- Mental Status 0 -- -- Score 20 -- -- OTHER Gray Fall Risk Low -- -- Positioning Body Position independent -- -- Goal: Infection Control Outcome: Ongoing (Interventions Implemented as Appropriate) 03/14/19 0800 Safety Interventions Isolation Precautions standard precautions maintained Infection Prevention rest/sleep promoted;environmental surveillance performed Coping Strategies Supportive Measures active listening utilized;self-care encouraged Problem: Cardiac: ACS (Acute Coronary Syndrome) (Adult) Goal: Signs and Symptoms of Listed Potential Problems Will be Absent, Minimized or Managed (Cardiac: ACS) Signs and symptoms of listed potential problems will be absent, minimized or managed by discharge/transition of care (reference Cardiac: ACS (Acute Coronary Syndrome) (Adult) CPG). Outcome: Ongoing (Interventions Implemented as Appropriate) 03/14/19 0124 Cardiac: ACS (Acute Coronary Syndrome) Problems Assessed (Acute Coronary Syndrome (ACS)) all Problems Present (Acute Coronary Syndrome (ACS)) none * Initial Assessments - Rashmi Simmons RN - 03/14/2019 2:43 PM EDT Office of Care Management Initial Assessment Rashmi Simmons RN reviewed record and discussed patient with Care Team. Source of Information: Cardiology Team, bedside nurse, chart review, interviewing patient. Introduced self/reviewed role; services accepted. Reason for Hospitalization: Reason for Admission as Stated by Patient: chest pain ACS (acute coronary syndrome) Per H&P note bu Dr. Simpson: 53 y/o male with a pmhx of CAD s/p multiple JACINDA PCIs to the mid LADdue to frequent instent restenosis since 2011 and last JACINDA PCI to the RCA in 11/2016 following UAP, DM2, HTN, HLD, TIA and GERD who was transferred from [facility] with a diagnosis of UAP Past Medical History: Diagnosis Date ??? Allergy ??? CAD (coronary artery disease), non-obstructive 05/31/2012 ??? Depression ??? DM (diabetes mellitus) 05/31/2012 ??? Dyslipidemia 05/31/2012 ??? GERD (gastroesophageal reflux disease) 05/31/2012 ??? HTN (hypertension) 05/31/2012 ??? Hx-TIA (transient ischemic attack) 06/03/2012 ??? Smoker 05/31/2012 Hospitalizations Within the Past 30 Days: no [facility] [place] in last 30 days. Anticipated Length Of Stay (If known): 1-3 days Current Decision-Making Capacity: Patient is A&Ox4 and able to make all medical decisions Advance Care Planning: Full Code Not in EPIC.This author discussed ADs with patient and offered advance directive booklet and forms,patient deferred will discuss with family at a later time. [place] surrogacy law and process of guardianship explained. If AD's have not been completed then Spouse Dasia would be surrogate decision maker per [place] surrogate decision making law. Current Coping/Education/Information Needs: Current coping questions and concerns have been addressed. Current Functional Ability: assist of staff Functional Status Prior to Admission: independent with ADLs, driving, no DME used at baseline. Home Environment: lives in 2 level house, bedroom downstairs, no stairs to enter from outside. [address] [place] [address] Social & Family Supports/Community Resources: lives with spouse and daughter Extended Emergency Contact Information Primary Emergency Contact: Dasia Coe Address: [address] [place] [address] [facility] [place] Relation: Spouse Health/Prescription Coverage: Primary Insurance: MEDICARE Secondary Insurance: N/A Prescription Coverage: Yes Preferred Pharmacy: [id number] - [facility] [address] [address] Other: none Primary Care Provider: Coni Lim MD [phone] Patient/Caregiver Goals of Treatment: return to previous level of function Potential Needs for Transition of Care Rehab/SNF:no Home Health: no Transportation: car by family vs may need transportation arranged at discharge Other: none Anticipated Barriers to Discharge/Special Considerations: none vs anticipated barriers to arise as hospitalization continues. Assessment: patient is admitted to cardiology service for evaluation of ACS/ chest pain, anticipated to discharge home with support of family upon completion of Hospital course, no service needs anticipated at discharge. Plan: A member of the Care Management team will continue to monitor progress, follow for continuityof care and assist with transition of care planning. Rashmi Simmons, VERO Nurse Head Of Store Operations Pager [phone] * Op Note - Lexus Gutiérrez MD - 03/14/2019 10:54 AM EDT [facility] [place] Patient Name: Romeo Coe : [id number] MR#: [id number] Case Date: 03/14/2019 Surgeon: Surgeon(s) and Role: * Lexus Gutiérrez MD - Primary * Satnam Leger MD - Fellow Preoperative diagnosis: ?CAD Postoperative diagnosis: No new obstructive lesions from prior cath Procedure(s) (LRB): CARDIAC CATHETERIZATION (N/A) CORONARY ANGIOGRAPHY; W C,POSSIBLE PCI (N/A) Access: Radial provided good support for procedure. 6 Fr RRA with TR band in place, good hemostasis. The patient tolerated the procedures smoothly and was transferred from the cardiac catheterization lab to the next level of care in stable condition, without pain. No evident early complications. Results discussed with service cocoa bean cleaner Dr Mckeon, and with the patient. He did not have family that he preferred we call. He needs to be connected with a referring cocoa bean cleaner locally (seen at [facility]). A time-out was conducted prior to the start of the procedure to verify the correct patient and procedure, procedure location, and all relevant critical information. Full report to follow. LEXUS GUTIÉRREZ MD * Plan of Care - Keeley Arias RN - 03/14/2019 5:44 AM EDT Problem: Patient Care Overview Goal: Plan of Care Review Outcome: Ongoing (Interventions Implemented as Appropriate) 03/14/19 0542 Coping/Psychosocial Plan Of Care Reviewed With patient Plan of Care Review Progress progress toward functional goals as expected OUTCOME EVALUATION NOTE: OUTCOME SUMMARY: Dean had a good night. Arrived from [facility] hospital on Heparin drip. Denied chest pain or SOB. Trop and ekg negative. PLAN MOVING FORWARD: NPO for cardiac cath INDIVIDUALIZED FALL PREVENTION INTERVENTIONS: Patient-specific fall risk factors per assessment: [current deficits]: exertional chest pain Assistance [level of assistance required for transfers and ambulation]: SBA Supervision [direct monitoring required during toileting and ADLs]: SBA Surveillance [continuous indirect monitoring]: Tele, pulse ox, call perez, purposeful rounding Patient-specific fall prevention interventions for sensory deficits provided, if applicable: maintain safe environment CPG GOAL OUTCOME EVALUATION: ongoing * Plan of Care - Ed Simpson MD - 03/14/2019 2:42 AM EDT Images from the original note [...] consent which was reviewed and signed. ASA: 3: Patient with severe systemic disease Mallampati: III: only the base of the uvula can be seen Sedation Plan: moderate (conscious sedation) Assessment and Plan: Proceed with cardiac cath today, see progress note from today for further details. Ed Simpson MD 03/14/2019 Pager [phone] documented in this encounter Plan of Treatment Not on file documented as of this encounter Procedures Procedure Name Priority Date/Time Associated Diagnosis Comments CT CHEST PULMONARY EMBOLISM W CONTRAST STAT 03/16/2019 12:19 PM EDT POCT GLUCOSE Routine 03/16/2019 11:34 AM EDT POCT GLUCOSE Routine 03/16/2019 7:38 AM EDT EKG 12-LEAD Routine 03/16/2019 7:07 AM EDT Unstable angina BMP W/FASTING GLUCOSE Routine 03/16/2019 5:07 AM EDT HEMOGRAM Routine 03/16/2019 5:07 AM EDT DIFFERENTIAL, AUTOMATED Routine 03/16/20 5:07 AM EDT CBC (WITH DIFF) Routine 03/16/2019 5:07 AM EDT EKG 12-LEAD STAT 03/15/2019 8:23 PM EDT Unstable angina POCT GLUCOSE Routine 03/15/2019 8:13 PM EDT POCT GLUCOSE Routine 03/15/2019 4:58 PM EDT POCT GLUCOSE Routine 03/15/2019 11:47 AM EDT TROPONIN STAT 03/15/2019 11:17 AM EDT EKG 12-LEAD STAT 03/15/2019 10:49 AM EDT Unstable angina POCT GLUCOSE Routine 03/15/2019 7:57 AM EDT EKG 12-LEAD Routine 03/15/2019 7:08 AM EDT Unstable angina BMP W/FASTING GLUCOSE Routine 03/15/2019 5:01 AM EDT HEMOGRAM Routine 03/15/2019 5:01 AM EDT DIFFERENTIAL, AUTOMATED Routine 03/15/20 5:01 AM EDT CBC (WITH DIFF) Routine 03/15/2019 5:01 AM EDT HEMOGLOBIN A1C Routine 03/15/2019 5:01 AM EDT LIPID PANEL (REFLEX DIRECT LDL) Routine 03/15/2019 5:01 AM EDT POCT GLUCOSE Routine 03/14/2019 7:50 PM EDT EKG 12-LEAD STAT 03/14/2019 7:41 PM EDT Unstable angina POCT GLUCOSE Routine 03/14/2019 4:21 PM EDT TROPONIN STAT 03/14/2019 3:10 PM EDT XR CHEST ONE VIEW Routine 03/14/2019 2:3 5 PM EDT POCT GLUCOSE Routine 03/14/2019 11:41 AM EDT CARDIAC CATHETERIZATION Routine 03/14/20 10:55 AM EDT HEPARIN (UNFRACTIONATED) LEVEL STAT 03/14/2019 8:53 AM EDT HEMOGRAM Routine 03/14/2019 8:53 AM EDT DIFFERENTIAL, AUTOMATED Routine 03/14/20 8:53 AM EDT CBC (WITH DIFF) Routine 03/14/2019 8:53 AM EDT TROPONIN STAT 03/14/2019 8:53 AM EDT ECHO COMPLETE Routine 03/14/2019 8:37 AM EDT Unstable angina POCT GLUCOSE Routine 03/14/2019 7:42 AM EDT TROPONIN STAT 03/14/2019 3:28 AM EDT SODIUM Routine 03/14/2019 3:28 AM EDT POTASSIUM Routine 03/14/2019 3:28 AM EDT CHLORIDE Routine 03/14/2019 3:28 AM EDT HEPARIN (UNFRACTIONATED) LEVEL STAT 03/14/2019 2:46 AM EDT BMP W/FASTING GLUCOSE STAT 03/14/2019 1:50 AM EDT HEMOGRAM STAT 03/14/2019 1:50 AM EDT DIFFERENTIAL, AUTOMATED STAT 03/14/20 1:50 AM EDT CBC (WITH DIFF) STAT 03/14/2019 1:50 AM EDT PRO-BRAIN NATRIURETIC PEPTIDE STAT 03/14/2019 1:50 AM EDT MAGNESIUM STAT 03/14/2019 1:50 AM EDT EKG 12-LEAD STAT 03/14/2019 1:06 AM EDT Unstable angina documented in this encounter Results * CT Angiogram Chest for Pulmonary Embolus w Contrast (03/16/2019 12:19 PM EDT) Anatomical Region Laterality Modality Chest Computed Tomogra phy Impressions 03/16/2019 1:06 PM EDT No pulmonary embolism identified. Indeterminate mild RIGHT posterior pleural thickening. Thank you for letting us participate in the care of this patient. For questions regarding this report, please contact the number below. ? Electronically signed by: Adithya Hutchison [facility] ([phone]), at 03/16/2019 1:06 PM Narrative 03/16/2019 1:06 PM EDT EXAMINATION: CTA CHEST PULMONARY EMBOLISM W CONTRAST CLINICAL HISTORY: undifferentiated chest pain, please also rule out PE TECHNIQUE: 3mm thick axial contiguous sections were obtained through the chest via helical acquisition after the intravenous administration of contrast, Administered 78.0 ml of OMNIPAQUE 350.00 mg/ml. Thin-section reconstructions as well as coronal and sagittal MIP reformatted images were generated to aid in evaluation. COMPARISON: None FINDINGS: Pulmonary arteries: No pulmonary arterial filling defects. Other cardiovascular structures: No significant findings. Pulmonary parenchyma: LEFT lower lobe focal scarring/atelectasis. A 4 mm subpleural nodule seen along the minor fissure, compatible with an intrapulmonic lymph node. Airways: No significant findings. Pleura: Indeterminate mild RIGHT posterior pleural thickening. Lymph nodes: No significant findings. Other mediastinal structures: No significant findings. Upper abdomen: Postcholecystectomy. 5.2 cm simple cyst upper pole LEFT kidney. Skeletal structures: No significant findings. Procedure Note Adithya Hutchison MD - 03/16/2019 EXAMINATION: CTA CHEST PULMONARY EMBOLISM W CONTRAST CLINICAL HISTORY: undifferentiated chest pain, please also rule out PE TECHNIQUE: 3mm thick axial contiguous sections were obtained through thechest via helical acquisition after the intravenous administration ofcontrast, Administered 78.0 ml of OMNIPAQUE 350.00 mg/ml. Thin-sectionreconstructions as well as coronal and sagittal MIP reformatted images were generated to aidin evaluation. COMPARISON: None FINDINGS: Pulmonary arteries: No pulmonary arterial filling defects. Other cardiovascular structures: No significant findings. Pulmonary parenchyma: LEFT lower lobe focal scarring/atelectasis. A 4 mm subpleural nodule seen along the minor fissure, compatible with anintrapulmonic lymph node. Airways: No significant findings. Pleura: Indeterminate mild RIGHT posterior pleural thickening. Lymph nodes: No significant findings. Other mediastinal structures: No significant findings. Upper abdomen: Postcholecystectomy. 5.2 cm simple cyst upper pole LEFTkidney. Skeletal structures: No significant findings. IMPRESSION No pulmonary embolism identified. Indeterminate mild RIGHT posterior pleural thickening. Thank you for letting us participate in the care of this patient. Forquestions regarding this report, please contact the number below. Electronically signed by: Adithya Hutchison [facility]([phone]), at 03/16/2019 1:06 PM Esperanza Collier APRN IMG CT ORDERABLES * POCT Glucose (03/16/2019 11:34 AM EDT) Glucose, POC 106 65 - 199 mg/dL [facility] Comment: Supplemental ranges: <140 mg/dL before meals <180 mg/dL all other times of the day Blood specimen (specimen) 03/16/2019 11:34 AM EDT 03/16/2019 11:34 AM EDT Wale Mckeon MD POINT OF CARE TEST O RDERABLES Performing Organization Address City/[facility]/ZIP Co de Phone Number [facility] [place] [address] * POCT Glucose (03/16/2019 7:38 AM EDT) Glucose, POC 102 65 - 199 mg/dL [facility] Comment: Supplemental ranges: <140 mg/dL before meals <180 mg/dL all other times of the day Blood specimen (specimen) 03/16/2019 7:38 AM EDT 03/16/2019 7:38 AM EDT Wale Mckeon MD POINT OF CARE TEST O RDERABLES Performing Organization Address [facility] Co de Phone Number [facility] [place] [address] * EKG 12 Lead (03/16/2019 7:07 AM EDT) Ventricular rate 59 BPM MUSE SYSTEM Atrial Rate 59 BPM MUSE SYSTEM P-R Interval 148 ms MUSE SYSTEM QRS Duration 88 ms MUSE SYSTEM Q-T Interval 408 ms MUSE SYSTEM QTC Calculated (Bezet) 403 ms MUSE SYSTEM Calculated P [place] 7 degrees MUSE SYSTEM Calculated R [place] 23 degrees MUSE SYSTEM Calculated T [place] 40 degrees MUSE SYSTEM INTERPRETATION Sinus bradycardia Otherwise normal ECG When compared with ECG of 15-MAR-2019 20:23, No significant change was found Confirmed by MD SOUMYA, JENNIFER ([id number]) on 03/16/2019 8:30:39 AM MUSE SYSTEM 03/16/2019 7:07 AM EDT 03/16/2019 8:30 AM EDT Srii Bush APRN ECG ORDERABLES Performing Organization Address City/[facility]/ZIP Co de Phone Number MUSE SYSTEM * Differential, Automated (03/16/2019 5:07 AM EDT) Neutrophil % 48.9 % [facility] Neutrophil Absolute 3.25 1.70 - 6.10 x10(3)/[facility] Lymph % 38.1 % [facility] Lymphocytes Abs 2.5 0.9 - 3.2 x10(3)/[facility] Monocyte % 8.0 % [facility] Monocyte Abs 0.5 0.3 - 0.9 x10(3)/[facility] Eos % 4.2 % [facility] Eosinophils Abs 0.3 0.0 - 0.4 x10(3)/[facility] Basophil % 0.5 % [facility] Baso Absolute 0.0 0.0 - 0.1 x10(3)/[facility] Immature Gran % 0.30 % [facility] Comment: Immature granulocytes(IG's)percentage and absolute count will include metamyelocytes, myelocytes, and promyelocytes. Blood smears from CBCs yielding IG's will be scanned manually for concordance. If this scan disagrees with the automated IG or if promyelocytes are noted, a manual differential will be performed. Immature Gran Absolute 0.02 0.00 - 0.04 x10(3)/[facility] Blood specimen (specimen) 03/16/2019 5:07 AM EDT 03/16/2019 5:24 AM EDT Narrative Resulting Agency Comment Spec In Lab Siri Bush DIRECTOR OF [employer]ET[employer] HEMATOLOGY ORDERAB LES Performing Organization Address City/State/[facility] Co de Phone Number [facility] [place] [address] * Hemogram (03/16/2019 5:07 AM EDT) White Blood Cell 6.6 4.0 - 9.5 x10(3)/[facility] Red Blood Cell 5.33 4.58 - 5.54 x10(6)/[facility] Hemoglobin 15.6 13.7 - 16.5 gm/dL [facility] Hematocrit 45.4 40.5 - 48.5 % [facility] Mean Cell Volume 85.2 82.9 - 93.1 fL [facility] Mean Cell Hemoglobin 29.3 27.5 - 32.1 pg [facility] Mean Cell Hemoglobin Concentration 34.4 32.0 - 35.7 gm/dL [facility] Platelet 154 145 - 357 x10(3)/[facility] RDW Standard Deviation 38.3 36.0 - 45.0 [facility] RDW coefficient of variation 12.5 11.4 - 13.8 % [facility] Mean Platelet Volume 10.9 7.6 - 12.9 [facility] NRBC% auto 0.0 % [facility] NRBC Absolute 0.000 0.000 - 0.000 x10(3)/[facility] Blood specimen (specimen) 03/16/2019 5:07 AM EDT 03/16/2019 5:24 AM EDT Narrative Resulting Agency Comment Spec In Lab Siri Bush APRN HEMATOLOGY ORDERAB LES [facility] [address] * (ABNORMAL) BMP w/fasting Glucose (03/16/2019 5:07 AM EDT) Glucose Fasting 119(H) 65 - 99 mg/dL [facility] Comment: ?Fasting* Glucose Interpretive Criteria [...] of Diabetes Mellitus, Position Statement from the [place] [employer]. ??Diabetes Care, Volume 33, Supplement 1, Aug 2009 Blood Urea Nitrogen 10 10 - 20 mg/dL [facility] Creatinine 0.91 0.80 - 1.50 mg/dL [facility] Sodium 138 135 - 145 mmol/L [facility] Potassium 3.6 3.5 - 5.0 mmol/L [facility] Comment: Please note: ??Patients with WBC >100,000 may have falsely elevated Potassium levels. ??For accurate Potassium quantification in these patients send serum separator tube (gold top) for subsequent determinations. ??Contact the Clinical Chemistry Laboratory if there are any questions. Chloride 106 98 - 107 mmol/L [facility] Carbon Dioxide 20(L) 22 - 31 mmol/L [facility] Anion Gap 12 5 - 15 mmol/L [facility] Calcium 9.2 8.5 - 10.5 mg/dL [facility] Est Glomerular Filtration Rate 97 >=60 mL/min/1. 73 m?? [facility] Comment: The eGFR was calculated using the CKD-EPI equation. As with all creatinine based estimates of kidney function, eGFR values calculated with the CKD-EPI equation are not accurate in patients with acute kidney failure, extremes of body mass or the acutely ill. [email or web address] eGFR 113 >=60 mL/min/1. 73 m?? [facility] Comment: The eGFR was calculated using the CKD-EPI equation. As with all creatinine based estimates of kidney function, eGFR values calculated with the CKD-EPI equation are not accurate in patients with acute kidney failure, extremes of body mass or the acutely ill. [email or web address] Blood specimen (specimen) 03/16/2019 5:07 AM EDT 03/16/2019 5:24 AM EDT Narrative Resulting Agency Comment Spec In Lab Siri Bush APRN CHEMISTRY ORDERABL ES [facility] [place] [address] * EKG 12 Lead (03/15/2019 8:23 PM EDT) Ventricular rate 65 BPM MUSE SYSTEM Atrial Rate 65 BPM MUSE SYSTEM P-R Interval 140 ms MUSE SYSTEM QRS Duration 86 ms MUSE SYSTEM Q-T Interval 384 ms MUSE SYSTEM QTC Calculated (Bezet) 399 ms MUSE SYSTEM Calculated P [place] 16 degrees MUSE SYSTEM Calculated R [place] 39 degrees MUSE SYSTEM Calculated T [place] 37 degrees MUSE SYSTEM INTERPRETATION Normal sinus rhythm Normal ECG When compared with ECG of 15-MAR-2019 10:49, No significant change was found Confirmed by MD SOUMYA, JENNIFER ([id number]) on 03/16/2019 12:17:34 AM MUSE SYSTEM 03/15/2019 8:23 PM EDT 03/16/2019 12:17 AM EDT Wale Mckeon MD ECG ORDERABLES Performing Organization Address City/[facility]/ZIP Co de Phone Number MUSE SYSTEM * POCT Glucose (03/15/2019 8:13 PM EDT) Glucose, POC 134 65 - 199 mg/dL [facility] Comment: Supplemental ranges: <140 mg/dL before meals <180 mg/dL all other times of the day Blood specimen (specimen) 03/15/2019 8:13 PM EDT 03/15/2019 8:13 PM EDT Wale Mckeon MD POINT OF CARE TEST O RDERABLES [facility] [place] [address] * POCT Glucose (03/15/2019 4:58 PM EDT) Glucose, POC 109 65 - 199 mg/dL [facility] Comment: Supplemental ranges: <140 mg/dL before meals <180 mg/dL all other times of the day Blood specimen (specimen) 03/15/2019 4:58 PM EDT 03/15/2019 4:58 PM EDT Wale Mckeon MD POINT OF CARE TEST O EVITA Performing Organization Address City/[facility]/ZIP Co de Phone Number [facility] [place] [address] * POCT Glucose (03/15/2019 11:47 AM EDT) Pathologist [facility] Glucose, POC 110 65 - 199 mg/dL [facility] Comment: Supplemental ranges: <140 mg/dL before meals <180 mg/dL all other times of the day Blood specimen (specimen) 03/15/2019 11:47 AM EDT 03/15/2019 11:47 AM EDT Wale Mckeon MD POINT OF CARE TEST O EVITA Performing Organization Address [facility] Co de Phone Number [facility] [place] [address] * Troponin (03/15/2019 11:17 AM EDT) [facility] Troponin-T <0.01 0.00 - 0.00 ng/mL [facility] Comment: The 99th percentile for Troponin T is less than 0.01 ng/mL, any detectable cTnT concentration using this assay should be considered elevated. According to the third universal definition of myocardial infarction the following criteria with a clinical presentation consistent with acute myocardial ischemia meets the diagnosis for a myocardial infarction (OR). Detection of a rise and/or fall of cTnT, with at least one value greater than the 99th percentile (> or = 0.01) and with at least one of the following ?? Symptoms of ischemia ?? New or presumed new significant [id number] wave (ST-T) changes or new left bundle [...] additional sample may be indicated. Reference: Third [place] Definition of Myocardial Infarction. Journal of the [place] College [employer] 2012;60:1581-98 Blood specimen (specimen) 03/15/2019 11:17 AM EDT 03/15/2019 11:42 AM EDT Narrative Resulting Agency Comment Spec In Lab Esperanza Collier KRYSTINA CHEMISTRY ORDERABLES Performing Organization Address [facility] Co de Phone Number [facility] [place] [phone] * EKG 12 Lead (03/15/2019 10:49 AM EDT) Ventricular rate 59 BPM MUSE SYSTEM Atrial Rate 59 BPM MUSE SYSTEM P-R Interval 140 ms MUSE SYSTEM QRS Duration 86 ms MUSE SYSTEM Q-T Interval 398 ms MUSE SYSTEM QTC Calculated (Bezet) 394 ms MUSE SYSTEM Calculated P [place] 13 degrees MUSE SYSTEM Calculated R [place] 42 degrees MUSE SYSTEM Calculated T [place] 49 degrees MUSE SYSTEM INTERPRETATION Sinus bradycardia Otherwise normal ECG When compared with ECG of 15-MAR-2019 07:08, No significant change was found Confirmed by MD Buchanan Timothy ([id number]) on 03/15/2019 12:09:31 PM MUSE SYSTEM 03/15/2019 10:4 9 AM EDT 03/15/2019 12:09 PM EDT Esperanza Vicki Collier APRN ECG ORDERABLES Performing Organization Address [facility] Phone Number MUSE SYSTEM * POCT Glucose (03/15/2019 7:57 AM EDT) Glucose, POC 114 65 - 199 mg/dL [facility] Comment: Supplemental ranges: <140 mg/dL before meals <180 mg/dL all other times of the day Blood specimen (specimen) 03/15/2019 7:57 AM EDT 03/15/2019 7:57 AM EDT Wale Mckeon MD POINT OF CARE TEST O RDERABLES Performing Organization Address [facility] Co de Phone Number [facility] [place] [address] * EKG 12 Lead (03/15/2019 7:08 AM EDT) Ventricular rate 58 BPM MUSE SYSTEM Atrial Rate 58 BPM MUSE SYSTEM P-R Interval 140 ms MUSE SYSTEM QRS Duration 90 ms MUSE SYSTEM Q-T Interval 410 ms MUSE SYSTEM QTC Calculated (Bezet) 402 ms MUSE SYSTEM Calculated P [place] 5 degrees MUSE SYSTEM Calculated R [place] 24 degrees MUSE SYSTEM Calculated T [place] 34 degrees MUSE SYSTEM INTERPRETATION Sinus bradycardia Otherwise normal ECG When compared with ECG of 14-MAR-2019 19:41, No significant change was found Confirmed by MD SOUMYA, JENNIFER ([id number]) on 03/15/2019 9:53:01 AM MUSE SYSTEM 03/15/2019 7:08 AM EDT 03/15/2019 9:53 AM EDT Siri [place] KRYSTINA ECG ORDERABLES MUSE SYSTEM * Differential, Automated (03/15/2019 5:01 AM EDT) Pathologist [facility] Neutrophil % 46.9 % [facility] Neutrophil Absolute 2.78 1.70 - 6.10 x10(3)/[facility] Lymph % 40.6 % [facility] Lymphocytes Abs 2.4 0.9 - 3.2 x10(3)/[facility] Monocyte % 7.7 % [facility] Monocyte Abs 0.5 0.3 - 0.9 x10(3)/[facility] Eos % 3.7 % [facility] Eosinophils Abs 0.2 0.0 - 0.4 x10(3)/[facility] Basophil % 0.8 % [facility] Baso Absolute 0.0 0.0 - 0.1 x10(3)/[facility] Immature Gran % 0.30 % [facility] Comment: Immature granulocytes(IG's)percentage and absolute count will include metamyelocytes, myelocytes, and promyelocytes. Blood smears from CBCs yielding IG's will be scanned manually for concordance. If this scan disagrees with the automated IG or if promyelocytes are noted, a manual differential will be performed. Immature Gran Absolute 0.02 0.00 - 0.04 x10(3)/[facility] Blood specimen (specimen) 03/15/2019 5:01 AM EDT 03/15/2019 5:12 AM EDT Narrative Resulting Agency Comment Spec In Lab Siri Bush APRN HEMATOLOGY ORDERAB LES [facility] [place] [address] * Hemogram (03/15/2019 5:01 AM EDT) White Blood Cell 5.9 4.0 - 9.5 x10(3)/[facility] Red Blood Cell 4.95 4.58 - 5.54 x10(6)/[facility] Hemoglobin 14.6 13.7 - 16.5 gm/dL [facility] Hematocrit 43.1 40.5 - 48.5 % [facility] Mean Cell Volume 87.1 82.9 - 93.1 [facility] Mean Cell Hemoglobin 29.5 27.5 - 32.1 pg [facility] Mean Cell Hemoglobin Concentration 33.9 32.0 - 35.7 gm/dL [facility] Platelet 156 145 - 357 x10(3)/[facility] RDW Standard Deviation 40.2 36.0 - 45.0 [facility] RDW coefficient of variation 12.5 11.4 - 13.8 % [facility] Mean Platelet Volume 10.4 7.6 - 12.9 [facility] NRBC% auto 0.0 % [facility] NRBC Absolute 0.000 0.000 - 0.000 x10(3)/[facility] Blood specimen (specimen) 03/15/2019 5:01 AM EDT 03/15/2019 5:12 AM EDT Narrative Resulting Agency Comment Spec In Lab Siri Bush DIRECTOR OF [employer]ETING HEMATOLOGY ORDERAB LES [facility] [place] [address] * (ABNORMAL) BMP w/fasting Glucose (03/15/2019 5:01 AM EDT) Glucose Fasting 120(H) 65 - 99 mg/dL [facility] Comment: ?Fasting* Glucose Interpretive Criteria [...] of Diabetes Mellitus, Position Statement from the [place] Diabetes [employer]. ??Diabetes Care, Volume 33, Supplement 1, Aug 2009 Blood Urea Nitrogen 11 10 - 20 mg/dL [facility] Creatinine 0.90 0.80 - 1.50 mg/dL [facility] Sodium 142 135 - 145 mmol/L [facility] Potassium 3.8 3.5 - 5.0 mmol/L [facility] Comment: Please note: ??Patients with WBC >100,000 may have falsely elevated Potassium levels. ??For accurate Potassium quantification in these patients send serum separator tube (gold top) for subsequent determinations. ??Contact the Clinical Chemistry Laboratory if there are any questions. Chloride 109(H) 98 - 107 mmol/L [facility] Carbon Dioxide 23 22 - 31 mmol/L [facility] Anion Gap 10 5 - 15 mmol/L [facility] Calcium 9.1 8.5 - 10.5 mg/dL [facility] Est Glomerular Filtration Rate 99 >=60 mL/min/1. 73 m?? [facility] Comment: The eGFR was calculated using the CKD-EPI equation. As with all creatinine based estimates of kidney function, eGFR values calculated with the CKD-EPI equation are not accurate in patients with acute kidney failure, extremes of body mass or the acutely ill. [email or web address] eGFR 114 >=60 mL/min/1. 73 m?? [facility] Comment: The eGFR was calculated using the CKD-EPI equation. As with all creatinine based estimates of kidney function, eGFR values calculated with the CKD-EPI equation are not accurate in patients with acute kidney failure, extremes of body mass or the acutely ill. [email or web address] Blood specimen (specimen) 03/15/2019 5:01 AM EDT 03/15/2019 5:12 AM EDT Narrative Resulting Agency Comment Spec In Lab Siri Bush APRN CHEMISTRY ORDERABL ES [facility] [place] [address] * (ABNORMAL) Hemoglobin A1c (03/15/2019 5:01 AM EDT) Hemoglobin A1c 6.8(H) 4.3 - 5.6 % [facility] Comment: Reference Range: 4.3 - [...] Mellitus, Diabetes Care 2013; 36: Suppl. 1, F57- Estimated Average Glucose 148 mg/dL [facility] Comment: eAG equivalents for HbA1c [...] into estimated average glucose values. ??Diabetes Care 2008:31(8):8941-9243. Blood specimen (specimen) 03/15/2019 5:01 AM EDT 03/15/2019 5:12 AM EDT Narrative Resulting Agency Comment Spec In Lab Siri Bush APRN CHEMISTRY ORDERABL ES [facility] [place] [address] * Lipid Panel (03/15/2019 5:01 AM EDT) Cholesterol, Total 207 mg/dL [facility] Comment: Lower Risk: <200 mg/dL Average Risk: 200-239 mg/dL Higher Risk: >lz=394 mg/dL Triglyceride 256 mg/dL [facility] Comment: Average Risk/Lower Risk: <150 mg/dL Borderline High Risk: 150-199 mg/dL High Risk: 200-499 mg/dL Very High Risk: >xg=631 mg/dL HDL Cholesterol 28 mg/dL [facility] Comment: Males: ?? Higher Risk: <40 mg/dL Females: ?? HIgher Risk: <50 mg/dL LDL Cholesterol 128 mg/dL [facility] Comment: Lowest Risk: <100 mg/dL Lower Risk: 100-129 mg/dL Borderline High Risk: 130-159 mg/dL High Risk: 160-189 mg/dL Very High Risk: >vd=133 mg/dL Cholesterol/HDL Ratio 7.4 ratio [facility] Lipid Interpretation See Note [facility] Comment: Lipid management should be guided by a patient? s ASCVD risk, goals and preferences. ACC/AHA Guidelines recommend high intensity statin if clinical ASCVD or LDL greater than or equal to 190 mg/dL. http://[employer].com/IEJ-KEP-Mzrhjknun Adults aged 40-75 with LDL 70-189 mg/dL should have their 10 year ASCVD risk estimated with the ACC/AHA ASCVD risk production estimator http://tools.acc.org/PEBUM-Jnet-Oowejfsru/ Statin should be discussed if risk greater [...] critical component of ASCVD risk reduction. Blood specimen (specimen) 03/15/2019 5:01 AM EDT 03/15/2019 5:12 AM EDT Narrative Resulting Agency Comment Spec In Lab Siri Bush APRN CHEMISTRY ORDERABL ES [facility] [place] [address] * POCT Glucose (03/14/2019 7:50 PM EDT) Glucose, POC 123 65 - 199 mg/dL [facility] Comment: Supplemental ranges: <140 mg/dL before meals <180 mg/dL all other times of the day Blood specimen (specimen) 03/14/2019 7:50 PM EDT 03/14/2019 7:50 PM EDT Wale Mckeon MD POINT OF CARE TEST O RDERABLES Performing Organization Address [facility] Co de Phone Number [facility] [place] [address] * EKG 12 Lead (03/14/2019 7:41 PM EDT) [facility] Ventricular rate 59 BPM MUSE SYSTEM Atrial Rate 59 BPM MUSE SYSTEM P-R Interval 142 ms MUSE SYSTEM QRS Duration 80 ms MUSE SYSTEM Q-T Interval 396 ms MUSE SYSTEM QTC Calculated (Bezet) 392 ms MUSE SYSTEM Calculated P [place] 40 degrees MUSE SYSTEM Calculated R [place] 37 degrees MUSE SYSTEM Calculated T [place] 46 degrees MUSE SYSTEM INTERPRETATION Sinus bradycardia Otherwise normal ECG When compared with ECG of 14-MAR-2019 01:06, No significant change was found Confirmed by MD SOUMYA, JENNIFER ([id number]) on 03/15/2019 9:52:58 AM MUSE SYSTEM 03/14/2019 7:41 PM EDT 03/15/2019 9:52 AM EDT Wale Mckeon MD ECG ORDERABLES Performing Organization Address [facility] de Phone Number MUSE SYSTEM * POCT Glucose (03/14/2019 4:21 PM EDT) [facility] Glucose, POC 128 65 - 199 mg/dL [facility] Comment: Supplemental ranges: <140 mg/dL before meals <180 mg/dL all other times of the day Blood specimen (specimen) 03/14/2019 4:21 PM EDT 03/14/2019 4:21 PM EDT Wale Mckeon MD POINT OF CARE TEST O RDERABLES Performing Organization Address [facility] Co de Phone Number [facility] [place] [address] * Troponin (03/14/2019 3:10 PM EDT) [facility] Troponin-T <0.01 0.00 - 0.00 ng/mL [facility] Comment: The 99th percentile for Troponin T is less than 0.01 ng/mL, any detectable cTnT concentration using this assay should be considered elevated. According to the third universal definition of myocardial infarction the following criteria with a clinical presentation consistent with acute myocardial ischemia meets the diagnosis for a myocardial infarction (OR). Detection of a rise and/or fall of cTnT, with at least one value greater than the 99th percentile (> or = 0.01) and with at least one of the following ?? Symptoms of ischemia ?? New or presumed new significant XU-mxflwlg-M wave (ST-T) changes or new left bundle [...] additional sample may be indicated. Reference: Third [place] Definition of Myocardial Infarction. Journal of the [employer] College [employer] 2012;60:1581-98 Blood specimen (specimen) 03/14/2019 3:10 PM EDT 03/14/2019 3:19 PM EDT Narrative Resulting Agency Comment Spec In Lab Wale Mckeon MD CHEMISTRY ORDERABLES Performing Organization Address City/State/[facility] Co de Phone Number [facility] [place] [address] * XR Chest PA or AP 1 view (03/14/2019 2:35 PM EDT) Anatomical Region Laterality Modality Chest N/A Digital Radiogra phy Impressions 03/14/2019 3:46 PM EDT No acute cardiopulmonary process. I have personally reviewed the image(s) and the residents interpretation and agree with the findings, Isabel Fong at 03/14/2019 3:46 PM Thank you for letting us participate in the care of this patient. For questions regarding this report, please contact the number below. ? Narrative 03/14/2019 3:46 PM EDT EXAMINATION: XR CHEST PA OR AP 1 VIEW CLINICAL HISTORY: Chest Pain TECHNIQUE: 1 view of the chest COMPARISON: Chest radiograph 03/13/2019 FINDINGS: Low lung volumes with crowding of the bronchovascular markings. The lungs are clear. The cardiomediastinal silhouette is within normal limits. There is no pneumothorax or pleural effusion. Procedure Note Isabel Fong MD - 03/14/2019 EXAMINATION: XR CHEST PA OR AP 1 VIEW CLINICAL HISTORY: Chest Pain TECHNIQUE: 1 view of the chest COMPARISON: Chest radiograph 03/13/2019 FINDINGS: Low lung volumes with crowding of the bronchovascular markings. The lungsare clear. The cardiomediastinal silhouette is within normal limits. There isno pneumothorax or pleural effusion. IMPRESSION No acute cardiopulmonary process. I have personally reviewed the image(s) and the residents interpretationand agree with the findings, Isabel Fong at 03/14/2019 3:46 PM Thank you for letting us participate in the care of this patient. Forquestions regarding this report, please contact the number below. Ed Simpson MD IMG DX ORDERABLES * POCT Glucose (03/14/2019 11:41 AM EDT) Glucose, POC 96 65 - 199 mg/dL [facility] Comment: Supplemental ranges: <140 mg/dL before meals <180 mg/dL all other times of the day Blood specimen (specimen) 03/14/2019 11:41 AM EDT 03/14/2019 11:41 AM EDT Wale Mckeon MD POINT OF CARE TEST O RDERABLES [facility] [place] [address] * CARDIAC CATHETERIZATION (03/14/2019 10:55 AM EDT) Anatomical Region Laterality Modality Other Narrative 03/15/2019 4:29 PM EDT ?[facility] ? Cardiac Catheterization/Intervention Report ? Patient Name: Coe, Romeo A. ? Procedure Date: 03/14/2019 ? A #: [id number] ? Primary Physician: Lexus Gutiérrez ? Case #: [id number] ? File Name: [id number] ? Catheterization Order Number: [id number] ? [facility] ? Final Report [place], [place] ? Patient Name: ? Romeo Coe ? ID#: ?[id number] ? : ?1965 ? Procedure Date: ? March 14, 2019 ?Case #: ? [id number] ? Room: ? 2 ? Case Physician: ? Lexus Gutiérrez M.D. ?Start: ?10:28 ?Fellow: ? Satnam Leger M.D. ?Admission: ??03/14/2019 ? Discharge: ??03/16/2019 ? Referring Physician: ??Coni Lim M.D. ? Procedures: ?* Coronary Angiography ?* Left Heart Catheterization ? History ?Romeo Coe is a 53 year old man. He has hypertension and a family ?history of coronary artery disease. The patient's smoking status is ?Current with Current - Every Day frequency, using cigarettes. Cigarette ?use is Light (<10/day). He has hypercholesterolemia. The patient has ?diabetes managed with oral medication. He has a prior history of coronary ?artery disease. The patient had a remote coronary intervention procedure. ?He also has a history of transient ischemic attacks. Prior to the ?initiation of this procedure, the patient was designated as ASA Class ?III. The CSHA clinical frailty scale is 2: Well. ? Diagnostic Tests: ?Prior Coronary Angiography: ? Prior coronary angiography was performed on 09/13/2017 and showed ? non-obstructive CAD. LV ejection fraction within 6 months is 63%. ?Electrocardiography: ? EKG was assessed by ECG. EKG was Normal. ?Medications Prior to Procedure: ? ASA, Beta Agatha and Statin. ? Indications for Diagnostic Cath: ?The priority of the diagnostic procedure was Urgent. The indication for ?the label machine operator visit is ACS less than or equal to 24 hrs. Chest pain ?symptom assessment was: Typical Angina. ? Technique: ?A 5 SLFr sheath was inserted in the right radial artery utilizing the ?Seldinger technique. The left coronary artery was injected utilizing a ?5Fr TIG 4.0 catheter. A 5Fr TIG 4.0 catheter was used to inject the right ?coronary artery. Left ventricular pressure was performed with a 5Fr ?ANGLED PIGTAIL catheter. A total of 100cc of Omnipaque were opened, 60cc ?of Omnipaque were administered and 40cc of Omnipaque were wasted. ?Radiation: Fluoro time was 3.3 minutes, dose area product was 37,278 ?mGYcm2 and air kerma was 771 mGY. See the case log for additional ?details. ?The patient received the following medications prior to and during the ?procedure: ? Unfractionated Heparin and Clopidogrel. ? Hemodynamics: ?Left Heart Pressures ? Resting: ? Syst Diast ? EDP ?a ?v ? m ?Ao 119 ?? 68 ?90 ?LV 113 ? 12 ? Coronary Angiography: ?Dominance: Right ?Left Main ? The left main was normal, free of disease. ?Left Anterior Descending ? There was a 20% long segmental stenosis of the proximal segment of ? the left anterior descending artery (LAD). ??The LAD was large. ??The ? mid segment of the LAD had a single discrete 40% stenosis. ??The ? previously placed stent is patent. ? There was a 70% single discrete stenosis of the ostial segment of ? the first diagonal branch (Diagonal 1) of the LAD. ??The Diagonal 1 ? was small. ?Left Circumflex ? There were multiple discrete 20% stenoses of the proximal segment of ? the left circumflex artery (LCX). ??The LCX was large. ??The mid ? segment of the LCX had mild diffuse (<=25% stenosis) disease. ? There was mild diffuse (<=25% stenosis) disease of the entire vessel ? segment of the first left posterolateral branch (LPL1) of the LCX. ? The LPL1 was moderate in size. ?Right Coronary Artery ? There was mild diffuse (<=25% stenosis) disease of the entire vessel ? segment of the right coronary artery (RCA). ??The RCA was moderate in ? size. ??The proximal segment of the RCA had a long segmental 50% ? stenosis. ? There were multiple discrete 40% aneurysmal stenoses of the proximal ? segment of the right posterior descending branch (RPDA) of the RCA. ? The RPDA was moderate in size. ? Vascular Access: ?Vascular Access Management: ? Mechanical Compression of the right radial artery access site was ? performed. ? Conclusions: ?* Two vessel coronary artery disease (LAD and RCA) ? Complications/Events: ?The patient had no complications during these procedures. ? Comments: ?No obstructive lesions to explain resting pain are seen; no objective ?measures of ischemia (negative trop, ECG and no stress testing.) ?Recommend medical management. Discussed with Dr Mckeon. ?Radial provided good support for procedure. ?The attending physician was present for the entire procedure. ?Dr. Lexus Gutiérrez M.D. was present during the moderate sedation ?intraservice time as documented by the sedation nurse. ??Case time = 00:24. ?Dr. Lexus Gutiérrez M.D. performed the coronary angiography and left ?heart catheterization. ? Lexus Gutiérrez, ? M.D. ? Electronically Signed by: Lexus Gutiérrez M.D. ? Report Finalized: 03/15/2019 ??16:25 ? Report Last Ammended: 08/13/2019 ??14:16 ? Procedure Note Lexus Gutiérrez MD - 08/13/2019 [facility] Cardiac Catheterization/Intervention Report Patient Name: Romeo Coe Procedure Date: 03/14/2019 A #: [id number] Primary Physician: Lexus Gutiérrez Case #: File Name: [id number] Catheterization Order Number: [id number] [facility] FinalReport [place], [place] Patient Name: Romeo Coe ID#:[id number] :1965 Procedure Date: March 14, 2019 Case #: Room: 2 Case Physician: Lexus Gutiérrez M.D. Start: 10:28 Fellow: Satnam Leger M.D. Admission:03/14/2019 Discharge:03/16/2019 Referring Physician: Coni Lim M.D. Procedures: * Coronary Angiography * Left Heart Catheterization History Romeo Coe is a 53 year old man. He has hypertension and afamily history of coronary artery disease. The patient's smoking status is Current with Current - Every Day frequency, using cigarettes.Cigarette use is Light (<10/day). He has hypercholesterolemia. The patient has diabetes managed with oral medication. He has a prior history ofcoronary artery disease. The patient had a remote coronary interventionprocedure. He also has a history of transient ischemic attacks. Prior to the initiation of this procedure, the patient was designated as ASAClass III. The [facility] clinical frailty scale is 2: Well. Diagnostic Tests: Prior Coronary Angiography: Prior coronary angiography was performed on 09/13/2017 andshowed non-obstructive CAD. LV ejection fraction within 6 months is63%. Electrocardiography: EKG was assessed by ECG. EKG was Normal. Medications Prior to Procedure: ASA, Beta Agatha and Statin. Indications for Diagnostic Cath: The priority of the diagnostic procedure was Urgent. The indicationfor the label machine operator visit is ACS less than or equal to 24 hrs. Chest pain symptom assessment was: Typical Angina. Technique: A 5 SLFr sheath was inserted in the right radial artery utilizingthe Seldinger technique. The left coronary artery was injected utilizinga 5Fr TIG 4.0 catheter. A 5Fr TIG 4.0 catheter was used to inject theright coronary artery. Left ventricular pressure was performed with a 5Fr ANGLED PIGTAIL catheter. A total of 100cc of Omnipaque were opened,60cc of Omnipaque were administered and 40cc of Omnipaque were wasted. Radiation: Fluoro time was 3.3 minutes, dose area product was 37,278 mGYcm2 and air kerma was 771 mGY. See the case log for additional details. The patient received the following medications prior to and duringthe procedure: Unfractionated Heparin and Clopidogrel. Hemodynamics: Left Heart Pressures Resting: Syst Diast EDP a v m Ao 119 68 90 LV 113 12 Coronary Angiography: Dominance: Right Left Main The left main was normal, free of disease. Left Anterior Descending There was a 20% long segmental stenosis of the proximal segmentof the left anterior descending artery (LAD). The LAD was large.The mid segment of the LAD had a single discrete 40% stenosis. The previously placed stent is patent. There was a 70% single discrete stenosis of the ostial segmentof the first diagonal branch (Diagonal 1) of the LAD. TheDiagonal 1 was small. Left Circumflex There were multiple discrete 20% stenoses of the proximalsegment of the left circumflex artery (LCX). The LCX was large. The mid segment of the LCX had mild diffuse (<=25% stenosis) disease. There was mild diffuse (<=25% stenosis) disease of the entirevessel segment of the first left posterolateral branch (LPL1) of theLCX. The LPL1 was moderate in size. Right Coronary Artery There was mild diffuse (<=25% stenosis) disease of the entirevessel segment of the right coronary artery (RCA). The RCA wasmoderate in size. The proximal segment of the RCA had a long segmental 50% stenosis. There were multiple discrete 40% aneurysmal stenoses of theproximal segment of the right posterior descending branch (RPDA) of theRCA. The RPDA was moderate in size. Vascular Access: Vascular Access Management: Mechanical Compression of the right radial artery access sitewas performed. Conclusions: * Two vessel coronary artery disease (LAD and RCA) Complications/Events: The patient had no complications during these procedures. Comments: No obstructive lesions to explain resting pain are seen; noobjective measures of ischemia (negative trop, ECG and no stress testing.) Recommend medical management. Discussed with Dr Mckeon. Radial provided good support for procedure. The attending physician was present for the entire procedure. Dr. Lexus Gutiérrez M.D. was present during the moderate sedation intraservice time as documented by the sedation nurse. Case time =00:24. Dr. Lexus Gutiérrez M.D. performed the coronary angiography andleft heart catheterization. Lexus Menjivar M.D. Electronically Signed by: Lexus Gutiérrez M.D. Report Finalized: 03/15/2019 16:25 Report Last Ammended: 08/13/2019 14:16 Ed Simpson MD CARDIAC CATH ORDERAB LES * Troponin (03/14/2019 8:53 AM EDT) Troponin-T <0.01 0.00 - 0.00 ng/mL [facility] Comment: The 99th percentile for Troponin T is less than 0.01 ng/mL, any detectable cTnT concentration using this assay should be considered elevated. According to the third universal definition of myocardial infarction the following criteria with a clinical presentation consistent with acute myocardial ischemia meets the diagnosis for a myocardial infarction (OR). Detection of a rise and/or fall of cTnT, with at least one value greater than the 99th percentile (> or = 0.01) and with at least one of the following ?? Symptoms of ischemia ?? New or presumed new significant NQ-fhgnbgi-U wave (ST-T) changes or new left bundle [...] additional sample may be indicated. Reference: Third [place] Definition of Myocardial Infarction. Journal of the [place] College [employer]iology 2012;60:1581-98 Blood specimen (specimen) 03/14/2019 8:53 AM EDT 03/14/2019 9:06 AM EDT Narrative Resulting Agency Comment Spec In Lab Wale Mckeon MD CHEMISTRY ORDERABLES [facility] [address] * (ABNORMAL) Differential, Automated (03/14/2019 8:53 AM EDT) Neutrophil % 33.7 % [facility] Neutrophil Absolute 2.11 1.70 - 6.10 x10(3)/ L [facility] Lymph % 52.4 % [facility] Lymphocytes Abs 3.3(H) 0.9 - 3.2 x10(3)/ L [facility] Monocyte % 7.6 % [facility] Monocyte Abs 0.5 0.3 - 0.9 x10(3)/mc L [facility] Eos % 4.9 % [facility] Eosinophils Abs 0.3 0.0 - 0.4 x10(3)/[facility] Basophil % 1.1 % [facility] Baso Absolute 0.1 0.0 - 0.1 x10(3)/ L [facility] Immature Gran % 0.30 % [facility] Comment: Immature granulocytes(IG's)percentage and absolute count will include metamyelocytes, myelocytes, and promyelocytes. Blood smears from CBCs yielding IG's will be scanned manually for concordance. If this scan disagrees with the automated IG or if promyelocytes are noted, a manual differential will be performed. Immature Gran Absolute 0.02 0.00 - 0.04 x10(3)/mc L [facility] Blood specimen (specimen) 03/14/2019 8:53 AM EDT 03/14/2019 9:06 AM EDT Narrative Resulting Agency Comment Spec In Lab Ed Simpson MD HEMATOLOGY ORDERABLE S [facility] [place] [address] * Hemogram (03/14/2019 8:53 AM EDT) White Blood Cell 6.3 4.0 - 9.5 x10(3)/[facility] Red Blood Cell 5.11 4.58 - 5.54 x10(6)/[facility] Hemoglobin 14.9 13.7 - 16.5 gm/dL [facility] Hematocrit 44.2 40.5 - 48.5 % [facility] Mean Cell Volume 86.5 82.9 - 93.1 [facility] Mean Cell Hemoglobin 29.2 27.5 - 32.1 pg [facility] Mean Cell Hemoglobin Concentration 33.7 32.0 - 35.7 gm/dL [facility] Platelet 156 145 - 357 x10(3)/[facility] RDW Standard Deviation 40.3 36.0 - 45.0 [facility] RDW coefficient of variation 12.6 11.4 - 13.8 % [facility] Mean Platelet Volume 10.7 7.6 - 12.9 [facility] NRBC% auto 0.0 % [facility] NRBC Absolute 0.000 0.000 - 0.000 x10(3)/[facility] Blood specimen (specimen) 03/14/2019 8:53 AM EDT 03/14/2019 9:06 AM EDT Narrative Resulting Agency Comment Spec In Lab Ed Simpson MD HEMATOLOGY ORDERABLE S [facility] [address] * Heparin (unfractionated) Level (03/14/2019 8:53 AM EDT) Pathologist [facility] UF Heparin 0.37 IU/mL [facility] Comment: Guidelines for therapeutic unfractionated heparin levels are summarized below. Heparin (Anti-Xa) levels should be determined in a plasma sample that has been drawn 6 hours after a dose change i.e., steady-state has been reached. DRUG ?Dosing Schedule ? Target Peak Steady-State ?Heparin (Anti-Xa) Levels (Units/mL) Unfractionated ?Continuous infusion ?0.3-0.7 Heparin ?0.3-0.6 for some neurology indications Blood specimen (specimen) 03/14/2019 8:53 AM EDT 03/14/2019 9:06 AM EDT Narrative Resulting Agency Comment Spec In Lab Ed Simpson MD HEMATOLOGY ORDERABLE S Performing Organization Address [facility]/State/[facility] Co de Phone Number [facility] [address] * ECHO COMPLETE (03/14/2019 8:37 AM EDT) [facility] EF 63 HEARTLAB SYSTEM Anatomical Region Laterality Modality Other 03/14/2019 Narrative 03/14/2019 8:45 AM EDT Procedure: ?Transthoracic Echocardiogram Patient: ?LAQUITA Pop ? (Age): 1965(53y) Med Rec#: ? [id number] ?Sex: ?M ? [place] [facility] [place]t / Wt: ??177(cm)/101(kg) Pt. Loc: ?Adult Floor ? BSA: ?2.18 Study Date: ?? 03/14/2019 ?Pt. Type: Inpatient Tape: ? Referring: Ed Simpson Reading: Christos Buchanan ([id number]) Cloud Physicist: Yessi Webb [facility] Diagnosis: *Unstable angina (I20.0) BP: ? 104/58 SUMMARY: 1. There is normal global left ventricular systolic function. ??The quantitative left ventricular ejection fraction by biplane Mcleod's method is 63%. There are no left ventricular segmental wall motion abnormalities. 2. The right ventricle is normal in size. Right ventricular global systolic function is normal. 3. There is no hemodynamically significant valve disease. 4. When compared with study dated 08/2017, no significant change is noted. 5. See remainder of report for additional findings. Findings ? : Study Quality: ? Adequate Left Ventricle: ? The left ventricular chamber size is normal. ?Left ventricular wall thickness is normal. ?There is normal global left ventricular systolic function. ?The quantitative left ventricular ejection fraction by biplane Mcleod's method is 63%. ?There are no left ventricular segmental wall motion abnormalities. Left Atrium: ? The left atrium is normal in size. ?No atrial septal defect is visualized. Right Ventricle: ? The right ventricle is normal in size. ?Right ventricular global systolic function is normal. ?The estimated pulmonary artery systolic pressure is 18 mmHg.Plus RA pressure Right Atrium: ? The right atrium is normal in size. Aortic Valve: ? The aortic valve is tricuspid. ?There is no evidence of aortic valve thickening. ?Systolic excursion of the aortic valve is normal. ?There is no evidence of aortic valve stenosis. ?There is no evidence of aortic regurgitation. Mitral Valve: ? The mitral valve leaflets appear normal. ?There is trace mitral regurgitation present. Tricuspid Valve: ? The tricuspid valve leaflets are morphologically normal. ?There is trace tricuspid regurgitation present. Pulmonic Valve: ? The pulmonic valve is not well visualized. ?There is no evidence of pulmonic regurgitation. Pericardium: ? There is no pericardial effusion. ?No pleural effusion is present. Aorta: ? The aortic root is normal in size. ?The ascending aorta is normal in size. Pulmonary Artery: ? The main pulmonary artery is probably normal in size. Venous: ? The inferior vena cava is poorly visualized. Misc: ? See remainder of report for additional findings. ?Two-dimensional echo, spectral Doppler and color Doppler performed. Chambers 2D ?Value ?Units (Range) ? IVSd (2D) ? 1 ?cm ? LVPWd (2D) ?0.8 ?cm ? IVS:LVPW ratio (2D) 1.3 ?ratio ? RWT (2D) ?0.4 ?ratio ? RWT PW (2D) ? 0.4 ?ratio ? LVIDd (2D) ?4.7 ?cm ? LVIDs (2D) ?3.3 ?cm ? LVIDd (2D) index ?2.2 ?cm/m2 ? LVIDs (2D) index ?1.5 ?cm/m2 ? LV FS (2D) ?30 ? % ? EF Teichholz (2D) ?? 57 ? % ? Ao root diameter (2D3.3 ?cm (2.1 - 3.6) ? Ascending Ao ?3.3 ?cm (2 - 3.5) ? Volumes/Mass ?Value ?Units (Range) ? LA Area 4 CH ?18 ? cm2 (<21) ? LA ESV BP (A/L) inde20.9 ? ml/m2 ? RA AREA 4CH ? 13 ? cm2 ? LV ESV SP 4CH (MOD) 41.4 ? ml ? LV ESV SP 2CH (MOD) 37.3 ? ml ? LV EDV BP ? 105.8 ?ml ? LV ESV BP ? 39 ? ml ? LV EDV BP index ? 48.5 ? ml/m2 ? LV ESV BP index ? 17.9 ? ml/m2 ? BP EF (MOD) ? 63 ? % ? LV mass (2D) ?150.9 ?g ? LV mass (2D) index ??69.2 ? g/m2 ? Diastolic/Systolic Function ?Value ?Units (Range) ? MV E-wave Vmax ?0.6 ?m/sec ? MV deceleration rpvh205.5 ?msec ? MV A-wave Vmax ?0.4 ?m/sec ? MV E:A ratio ?1.5 ?ratio ? LV septal e' Vmax ?? 0.1 ?m/sec ? LV lateral e' Vmax ??0.1 ?m/sec ? LV average e' Vmax ??0.1 ?m/sec ? LV E:e' septal ratio6.1 ?ratio ? LV E:e' lateral rati5.6 ?ratio ? LV average E:e' rati5.6 ?ratio ? Tricuspid Valve ?Value ?Units (Range) ? TR Vmax ? 2.1 ?m/sec ? TR peak gradient ?18.3 ? mmHg ? RVSP ?18 ? mmHg ? Measurement Trending Name ? 03/14/2019 ?09/13/2017 ?11/22/2016 ? 06/14/2012 ? 06/04/2012 ? 01/17/2010 ? TR peak gradient ? 18.25 Wall Motion: Segment Name ?Rest ? Base-Anteroseptal ?? Normal ? Base-Anterior ? Normal ? Base-Anterolateral ??Normal ? Base-Posterolateral Normal ? Base-Inferior ? Normal ? Base-Inferoseptal ?? Normal ? Mid-Anteroseptal ?Normal ? Mid-Anterior ?Normal ? Mid-Anterolateral ?? Normal ? Mid-Posterolateral ??Normal ? Mid-Inferior ?Normal ? Mid-Inferoseptal ?Normal ? [place]-Septal ? Normal ? [place]-Anterior ? Normal ? [place]-Lateral ?Normal ? [place]-Inferior ? Normal ? [place]-Tip ?Normal ? This report has been electronically signed by: Christos Buchanan M.D. ? 03/14/2019 08:45:08 Images reviewed and interpretation verified [facility] Cardiac Ultrasound [facility] Procedure Note Christos Buchanan MD - 03/14/2019 Procedure: Transthoracic Echocardiogram Patient: LAQUITA Pop (Age): 1965(53y) Med Rec#: [id number] Sex: M [place] [facility] [place]t: 177(cm)/101(kg) Pt. Loc: Adult Floor BSA: 2.18 Study Date: 03/14/2019 Pt. Type: Inpatient Tape: Referring: Ed Simpson Reading: Chrisots Buchanan ([id number]) Cloud Physicist: Yessi Webb [facility] Diagnosis: *Unstable angina (I20.0) BP: 104/58 SUMMARY: 1. There is normal global left ventricular systolic function. The quantitative left ventricular ejection fraction by biplane Mcleod's method is 63%. There are no left ventricular segmental wall motion abnormalities. 2. The right ventricle is normal in size. Right ventricular global systolic function is normal. 3. There is no hemodynamically significant valve disease. 4. When compared with study dated 08/2017, no significant change is noted. 5. See remainder of report for additional findings. Findings : Study Quality: Adequate Left Ventricle: The left ventricular chamber size is normal. Left ventricular wall thickness is normal. There is normal global left ventricular systolic function. The quantitative left ventricular ejection fraction by biplane Mcleod's method is 63%. There are no left ventricular segmental wall motion abnormalities. Left Atrium: The left atrium is normal in size. No atrial septal defect is visualized. Right Ventricle: The right ventricle is normal in size. Right ventricular global systolic function is normal. The estimated pulmonary artery systolic pressure is 18 mmHg.Plus RA pressure Right Atrium: The right atrium is normal in size. Aortic Valve: The aortic valve is tricuspid. There is no evidence of aortic valve thickening. Systolic excursion of the aortic valve is normal. There is no evidence of aortic valve stenosis. There is no evidence of aortic regurgitation. Mitral Valve: The mitral valve leaflets appear normal. There is trace mitral regurgitation present. Tricuspid Valve: The tricuspid valve leaflets are morphologically normal. There is trace tricuspid regurgitation present. Pulmonic Valve: The pulmonic valve is not well visualized. There is no evidence of pulmonic regurgitation. Pericardium: There is no pericardial effusion. No pleural effusion is present. Aorta: The aortic root is normal in size. The ascending aorta is normal in size. Pulmonary Artery: The main pulmonary artery is probably normal in size. Venous: The inferior vena cava is poorly visualized. Misc: See remainder of report for additional findings. Two-dimensional echo, spectral Doppler and color Doppler performed. Chambers 2D Value Units (Range) IVSd (2D) 1 cm LVPWd (2D) 0.8 cm IVS:LVPW ratio (2D) 1.3 ratio RWT (2D) 0.4 ratio RWT PW (2D) 0.4 ratio LVIDd (2D) 4.7 cm LVIDs (2D) 3.3 cm LVIDd (2D) index 2.2 cm/m2 LVIDs (2D) index 1.5 cm/m2 LV FS (2D) 30 % EF Teichholz (2D) 57 % Ao root diameter (2D3.3 cm (2.1 - 3.6) Ascending Ao 3.3 cm (2 - 3.5) Volumes/Mass Value Units (Range) LA Area 4 CH 18 cm2 (<21) LA ESV BP (A/L) inde20.9 ml/m2 RA AREA 4CH 13 cm2 LV ESV SP 4CH (MOD) 41.4 ml LV ESV SP 2CH (MOD) 37.3 ml LV EDV BP 105.8 ml LV ESV BP 39 ml LV EDV BP index 48.5 ml/m2 LV ESV BP index 17.9 ml/m2 BP EF (MOD) 63 % LV mass (2D) 150.9 g LV mass (2D) index 69.2 g/m2 Diastolic/Systolic Function Value Units (Range) MV E-wave Vmax 0.6 m/sec MV deceleration [id number] msec MV A-wave Vmax 0.4 m/sec MV E:A ratio 1.5 ratio LV septal e' Vmax 0.1 m/sec LV lateral e' Vmax 0.1 m/sec LV average e' Vmax 0.1 m/sec LV E:e' septal ratio6.1 ratio LV E:e' lateral rati5.6 ratio LV average E:e' rati5.6 ratio Tricuspid Valve Value Units (Range) TR Vmax 2.1 m/sec TR peak gradient 18.3 mmHg RVSP 18 mmHg Measurement Trending Name 03/14/2019 09/13/2017 11/22/2016 06/14/2012 06/04/2012 01/17/2010 TR peak gradient 18.25 Wall Motion: Segment Name Rest Base-Anteroseptal Normal Base-Anterior Normal Base-Anterolateral Normal Base-Posterolateral Normal Base-Inferior Normal Base-Inferoseptal Normal Mid-Anteroseptal Normal Mid-Anterior Normal Mid-Anterolateral Normal Mid-Posterolateral Normal Mid-Inferior Normal Mid-Inferoseptal Normal [place]-Septal Normal [place]-Anterior Normal [place]-Lateral Normal [place]-Inferior Normal [place]-Tip Normal This report has been electronically signed by: Christos Buchanan M.D. 03/14/2019 08:45:08 Images reviewed and interpretation verified [facility]ound [facility] Ed Simpson MD ECHO ORDERABLES * POCT Glucose (03/14/2019 7:42 AM EDT) Glucose, POC 102 65 - 199 mg/dL [facility] Comment: Supplemental ranges: <140 mg/dL before meals <180 mg/dL all other times of the day Blood specimen (specimen) 03/14/2019 7:42 AM EDT 03/14/2019 7:42 AM EDT Wale Mckeon MD POINT OF CARE TEST O RDERABLES Performing Organization Address [facility] Co de Phone Number [facility] [place] [address] * (ABNORMAL) Chloride (03/14/2019 3:28 AM EDT) Chloride 108(H) 98 - 107 mmol/L [facility] Blood specimen (specimen) 03/14/2019 3:28 AM EDT 03/14/2019 3:32 AM EDT Narrative Resulting Agency Comment Spec In Lab Wale Mckeon MD CHEMISTRY ORDERABLES Performing Organization Address [facility] Co de Phone Number [facility] [place] [address] * Troponin (03/14/2019 3:28 AM EDT) Troponin-T <0.01 0.00 - 0.00 ng/mL [facility] Comment: The 99th percentile for Troponin T is less than 0.01 ng/mL, any detectable cTnT concentration using this assay should be considered elevated. According to the third universal definition of myocardial infarction the following criteria with a clinical presentation consistent with acute myocardial ischemia meets the diagnosis for a myocardial infarction (OR). Detection of a rise and/or fall of cTnT, with at least one value greater than the 99th percentile (> or = 0.01) and with at least one of the following ?? Symptoms of ischemia ?? New or presumed new significant [id number] wave (ST-T) changes or new left bundle [...] additional sample may be indicated. Reference: Third [place] Definition of Myocardial Infarction. Journal of the [place] [employer] 2012;60:1581-98 Blood specimen (specimen) 03/14/2019 3:28 AM EDT 03/14/2019 3:32 AM EDT Narrative Resulting Agency Comment Spec In Lab Wale Mckeon MD CHEMISTRY ORDERABLES Performing Organization Address [facility] Co de Phone Number [facility] [place] [address] * Sodium (03/14/2019 3:28 AM EDT) Sodium 140 135 - 145 mmol/L [facility] Blood specimen (specimen) 03/14/2019 3:28 AM EDT 03/14/2019 3:32 AM EDT Narrative Resulting Agency Comment Spec In Lab Wale Mckeon MD CHEMISTRY ORDERABLES Performing Organization Address [facility] Phone Number [facility] [place] [address] * Potassium (03/14/2019 3:28 AM EDT) Potassium 3.7 3.5 - 5.0 mmol/L [facility] Comment: Please note: ??Patients with WBC >100,000 may have falsely elevated Potassium levels. ??For accurate Potassium quantification in these patients send serum separator tube (gold top) for subsequent determinations. ??Contact the Clinical Chemistry Laboratory if there are any questions. Blood specimen (specimen) 03/14/2019 3:28 AM EDT 03/14/2019 3:32 AM EDT Narrative Resulting Agency Comment Spec In Lab Wale Mckeon MD CHEMISTRY ORDERABLES Performing Organization Address [facility] de Phone Number [facility] [place] [address] * Heparin (unfractionated) Level (03/14/2019 2:46 AM EDT) UF Heparin 0.57 IU/mL [facility] Comment: Guidelines for therapeutic unfractionated heparin levels are summarized below. Heparin (Anti-Xa) levels should be determined in a plasma sample that has been drawn 6 hours after a dose change i.e., steady-state has been reached. DRUG ?Dosing Schedule ? Target Peak Steady-State ?Heparin (Anti-Xa) Levels (Units/mL) Unfractionated ?Continuous infusion ?0.3-0.7 Heparin ?0.3-0.6 for some neurology indications Blood specimen (specimen) 03/14/2019 2:46 AM EDT 03/14/2019 2:53 AM EDT Narrative Resulting Agency Comment Spec In Lab Wale Mckeon MD HEMATOLOGY ORDERABLE S Performing Organization Address City/State/[facility] Co de Phone Number [facility] [place] [address] * (ABNORMAL) Differential, Automated (03/14/2019 1:50 AM EDT) Neutrophil % 38.9 % [facility] Neutrophil Absolute 3.10 1.70 - 6.10 x10(3)/mc L [facility] Lymph % 49.6 % [facility] Lymphocytes Abs 4.0(H) 0.9 - 3.2 x10(3)/mc L [facility] Monocyte % 6.3 % [facility] Monocyte Abs 0.5 0.3 - 0.9 x10(3)/mc L [facility] Eos % 4.1 % [facility] Eosinophils Abs 0.3 0.0 - 0.4 x10(3)/mc L [facility] Basophil % 0.8 % [facility] Baso Absolute 0.1 0.0 - 0.1 x10(3)/mc L [facility] Immature Gran % 0.30 % [facility] Comment: Immature granulocytes(IG's)percentage and absolute count will include metamyelocytes, myelocytes, and promyelocytes. Blood smears from CBCs yielding IG's will be scanned manually for concordance. If this scan disagrees with the automated IG or if promyelocytes are noted, a manual differential will be performed. Immature Gran Absolute 0.02 0.00 - 0.04 x10(3)/mc L [facility] Blood specimen (specimen) 03/14/2019 1:50 AM EDT 03/14/2019 2:04 AM EDT Narrative Resulting Agency Comment Spec In Lab Ed Simpson MD HEMATOLOGY ORDERABLE S [facility] [address] * Hemogram (03/14/2019 1:50 AM EDT) White Blood Cell 8.0 4.0 - 9.5 x10(3)/[facility] Red Blood Cell 4.98 4.58 - 5.54 x10(6)/[facility] Hemoglobin 15.0 13.7 - 16.5 gm/dL [facility] Hematocrit 42.4 40.5 - 48.5 % [facility] Mean Cell Volume 85.1 82.9 - 93.1 fL [facility] Mean Cell Hemoglobin 30.1 27.5 - 32.1 pg [facility] Mean Cell Hemoglobin Concentration 35.4 32.0 - 35.7 gm/dL [facility] Platelet 192 145 - 357 x10(3)/[facility] RDW Standard Deviation 39.9 36.0 - 45.0 [facility] RDW coefficient of variation 12.9 11.4 - 13.8 % [facility] Mean Platelet Volume 11.7 7.6 - 12.9 fL [facility] NRBC% auto 0.0 % [facility] NRBC Absolute 0.000 0.000 - 0.000 x10(3)/mcL [facility] Blood specimen (specimen) 03/14/2019 1:50 AM EDT 03/14/2019 2:04 AM EDT Narrative Resulting Agency Comment Spec In Lab Ed Simpson MD HEMATOLOGY ORDERABLE S Performing Organization Address [facility] Co de Phone Number [facility] [place] [address] * pro-Brain Natriuretic Peptide (03/14/2019 1:50 AM EDT) NT-proBNP 12 <=125 pg/mL [facility] [place] Blood specimen (specimen) 03/14/2019 1:50 AM EDT 03/14/2019 2:04 AM EDT Narrative Resulting Agency Comment Spec In Lab Ed Simpson MD CHEMISTRY ORDERABLES Performing Organization Address [facility] Co de Phone Number [facility] [place] [address] * Magnesium (03/14/2019 1:50 AM EDT) Magnesium 0.81 0.69 - 1.07 mmol/L [facility] Blood specimen (specimen) 03/14/2019 1:50 AM EDT 03/14/2019 2:04 AM EDT Narrative Resulting Agency Comment Spec In Lab Ed Simpson MD CHEMISTRY ORDERABLES Performing Organization Address [facility] Co de Phone Number [facility] [place] [address] * (ABNORMAL) BMP w/fasting Glucose (03/14/2019 1:50 AM EDT) Glucose Fasting 110(H) 65 - 99 mg/dL [facility] Comment: ?Fasting* Glucose Interpretive Criteria [...] of Diabetes Mellitus, Position Statement from the [place] [employer]. ??Diabetes Care, Volume 33, Supplement 1, Aug 2009 Blood Urea Nitrogen 10 10 - 20 mg/dL [facility] Creatinine 1.00 0.80 - 1.50 mg/dL [facility] Sodium Not Perf 135 - 145 [facility] Potassium Not Perf 3.5 - 5.0 [facility] Comment: Called by: [facility], Read back by: Keeley Arias, Date/Time:03/14/19 03:03. Please note: ??Patients with WBC >100,000 may have falsely elevated Potassium levels. ??For accurate Potassium quantification in these patients send serum separator tube (gold top) for subsequent determinations. ??Contact the Clinical Chemistry Laboratory if there are any questions. Chloride Not Perf 98 - 107 [facility] Carbon Dioxide 22 22 - 31 mmol/L [facility] Anion Gap Unable to Calculate 5 - 15 mmol/L [facility] Calcium 8.5 8.5 - 10.5 mg/dL [facility] Est Glomerular Filtration Rate 87 >=60 mL/min/1 .73 m?? [facility] Comment: The eGFR was calculated using the CKD-EPI equation. As with all creatinine based estimates of kidney function, eGFR values calculated with the CKD-EPI equation are not accurate in patients with acute kidney failure, extremes of body mass or the acutely ill. [email or web address]/[email or web address] eGFR 101 >=60 mL/min/1 .73 m?? [facility] Comment: The eGFR was calculated using the CKD-EPI equation. As with all creatinine based estimates of kidney function, eGFR values calculated with the CKD-EPI equation are not accurate in patients with acute kidney failure, extremes of body mass or the acutely ill. [email or web address] Blood specimen (specimen) 03/14/2019 1:50 AM EDT 03/14/2019 2:04 AM EDT Narrative Resulting Agency Comment Spec In Lab Ed Simpson MD CHEMISTRY ORDERABLES Performing Organization Address [facility] Co de Phone Number [facility] [place] [address] * EKG 12 Lead (03/14/2019 1:06 AM EDT) Ventricular rate 63 BPM MUSE SYSTEM Atrial Rate 63 BPM MUSE SYSTEM P-R Interval 146 ms MUSE SYSTEM QRS Duration 84 ms MUSE SYSTEM Q-T Interval 384 ms MUSE SYSTEM QTC Calculated (Bezet) 392 ms MUSE SYSTEM Calculated P [place] 28 degrees MUSE SYSTEM Calculated R [place] 21 degrees MUSE SYSTEM Calculated T [place] 18 degrees MUSE SYSTEM INTERPRETATION Normal sinus rhythm Normal ECG When compared with ECG of 13-SEP-2017 07:49, No significant change was found Confirmed by MD NAZANIN, DEISY ([id number]) on 03/14/2019 9:49:11 AM MUSE SYSTEM 03/14/2019 1:06 AM EDT 03/14/2019 9:49 AM EDT Ed Simpson MD ECG ORDERABLES Performing Organization Address [facility] de Phone Number MUSE SYSTEM documented in this encounter Visit Diagnoses Diagnosis Chest pain- Primary Chest pain, unspecified Unstable angina Intermediate coronary syndrome HTN (hypertension) Unspecified essential hypertension DM (diabetes mellitus) Type II or unspecified type diabetes mellitus without mention of complication, not stated as uncontrolled GERD (gastroesophageal reflux disease) Esophageal reflux Smoker Tobacco use disorder documented in this encounter Admitting Diagnoses Diagnosis ACS (acute coronary syndrome) Intermediate coronary syndrome documented in this encounter Administered Medications Inactive Administered Medications - up to 3 most recent administrations Medication Order MAR Action Action Date Dose Rate Site acetaminophen (TYLENOL) tablet 650 mg 650 mg, Oral, EVERY 4 HOURS PRN, Starting on Thu03/14/19 at 0219, Until Thu03/16/19 at 1756, Pain, Headaches, Maximum dose of acetaminophen is 4000 mg from all sources in 24 hours., Routine Given 03/14/2019 7:52 PM EDT 650 mg amLODIPine (NORVASC) tablet 2.5 mg 2.5 mg, Oral, DAILY, First dose on Thu03/15/19 at 1000, Until Discontinued, Routine Given 03/16/2019 8:49 AM EDT 2.5 mg Given 03/15/2019 11:18 AM EDT 2.5 mg aspirin chewable tablet 81 mg 81 mg, Oral, DAILY, First dose on Thu03/14/19 at 0900, Until Discontinued, Routine Given 03/16/2019 8:49 AM EDT 81 mg Given 03/15/2019 8:55 AM EDT 81 mg Given 03/14/2019 8:54 AM EDT 81 mg buPROPion (WELLBUTRIN SR or ZYBAN) SR tablet 150 mg 150 mg, Oral, 2 TIMES DAILY, First dose on Thu03/14/19 at 0900, Until Discontinued, DO NOT CRUSH OR OPEN, Routine Given 03/16/2019 8:49 AM EDT 150 mg Given 03/15/2019 8:31 PM EDT 150 mg Given 03/15/2019 8:55 AM EDT 150 mg clopidogrel (PLAVIX) tablet 75 mg 75 mg, Oral, DAILY, First dose on Thu03/14/19 at 0900, Until Discontinued, Routine Given 03/14/2019 8:53 AM EDT 75 mg cyclobenzaprine (FLEXERIL) tablet 10 mg 10 mg, Oral, NIGHTLY, First dose on Thu03/14/19 at 2100, Until Discontinued, Routine Given 03/15/2019 8:31 PM EDT 10 mg Given 03/14/2019 8:18 PM EDT 10 mg dextrose 50% intravenous solution 25-50 mL 25-50 mL (12.5-25 g), Intravenous, EVERY 1 HOUR PRN, Starting on Thu03/14/19 at 0219, Until Thu03/16/19 at 1756, Low blood sugar, For BG 50-70 mg/dL: Oral treatment preferred:?? If able to drink, give 120 mL Juice or Regular (not diet) soda OR If NPO, give 15 gram glucose 40% oral gel massaged into buccal mucosa OR if unconscious or uncooperative, give 12.5 gram (25 mL) Dextrose 50% IV OR, if no IV access, give 1 mg Glucagon IM. For BG less than 50 mg/dL: Oral treatment preferred:?? If able to drink, give 240 mL Juice or Regular (not diet) soda OR If NPO, give 30 gram glucose 40% oral gel massaged in buccal mucosa OR if unconscious or uncooperative, give 25 gram (50 mL) Dextrose 50% IV OR, if no IV access, give 1 mg Glucagon IM. Recheck BG in 30 minutes. May repeat juice, gel, dextrose or glucagon once per episode. To avoid extravasation, push Dextrose 50% SLOWLY (3 mL over 1 minute) in a patent, running IV, preferably a central line. For persistent hypoglycemia, consider longer-acting treatment for the duration of the active insulin., Routine DULoxetine (CYMBALTA) capsule 60 mg 60 mg, Oral, 2 TIMES DAILY, First dose on Thu03/14/19 at 0900, Until Discontinued, Routine Given 03/16/2019 8:49 AM EDT 60 mg Given 03/15/2019 8:31 PM EDT 60 mg Given 03/15/2019 8:55 AM EDT 60 mg gabapentin (NEURONTIN) capsule 300 mg 300 mg, Oral, 2 TIMES DAILY, First dose on Thu03/14/19 at 0745, Until Discontinued, Routine Given 03/16/2019 11:35 AM EDT 300 mg Given 03/16/2019 6:17 AM EDT 300 mg Given 03/15/2019 11:18 AM EDT 300 mg gabapentin (NEURONTIN) capsule 600 mg 600 mg, Oral, NIGHTLY, First dose on Thu03/14/19 at 2100, Until Discontinued, Routine Given 03/15/2019 8:32 PM EDT 600 mg Given 03/14/2019 8:18 PM EDT 600 mg glucagon (human recombinant) injection SolR 1 mg 1 mg, Intramuscular, EVERY 1 HOUR PRN, Starting on Thu03/14/19 at 0219, Until Thu03/16/19 at 1756, Low blood sugar, For BG 50-70 mg/dL: Oral treatment preferred:?? If able to drink, give 120 mL Juice or Regular (not diet) soda OR If NPO, give 15 gram glucose 40% oral gel massaged into buccal mucosa OR if unconscious or uncooperative, give 12.5 gram (25 mL) Dextrose 50% IV OR, if no IV access, give 1 mg Glucagon IM. For BG less than 50 mg/dL: Oral treatment preferred:?? If able to drink, give 240 mL Juice or Regular (not diet) soda OR If NPO, give 30 gram glucose 40% oral gel massaged in buccal mucosa OR if unconscious or uncooperative, give 25 gram (50 mL) Dextrose 50% IV OR, if no IV access, give 1 mg Glucagon IM. Recheck BG in 30 minutes. May repeat juice, gel, dextrose or glucagon once per episode. To avoid extravasation, push Dextrose 50% SLOWLY (3 mL over 1 minute) in a patent, running IV, preferably a central line. For persistent hypoglycemia, consider longer-acting treatment for the duration of the active insulin., Routine glucose (GLUTOSE) 40% oral gel 15-30 g, Buccal, EVERY 30 MIN PRN, Starting on Thu03/14/19 at 0219, Until Thu03/16/19 at 1756, Low blood sugar, For BG 50-70 mg/dL: Oral treatment preferred:?? If able to drink, give 120 mL Juice or Regular (not diet) soda OR If NPO, give 15 gram glucose 40% oral gel massaged into buccal mucosa OR if unconscious or uncooperative, give 12.5 gram (25 mL) Dextrose 50% IV OR, if no IV access, give 1 mg Glucagon IM. For BG less than 50 mg/dL: Oral treatment preferred:?? If able to drink, give 240 mL Juice or Regular (not diet) soda OR If NPO, give 30 gram glucose 40% oral gel massaged in buccal mucosa OR if unconscious or uncooperative, give 25 gram (50 mL) Dextrose 50% IV OR, if no IV access, give 1 mg Glucagon IM. Recheck BG in 30 minutes. May repeat juice, gel, dextrose or glucagon once per episode. To avoid extravasation, push Dextrose 50% SLOWLY (3 mL over 1 minute) in a patent, running IV, preferably a central line. For persistent hypoglycemia, consider longer-acting treatment for the duration of the active insulin. 1 tube contains 15 grams of glucose (net weight of tube = 37.5 grams., Routine heparin (porcine) 25,000 unit/500 mL (50 unit/mL) infusion 1 dose, Starting on Thu03/14/19 at 0044, Until Thu03/14/19 at 0045, Maria C Tomlin (o): cabinet override heparin 25,000 units in dextrose 5% 500 mL infusion 0-5,000 Units/hr (0-100 mL/hr), Intravenous, CONTINUOUS, Starting on Thu03/14/19 at 0315, Until Thu03/14/19 at 1226, BEGIN infusion at 1,000 units per hr (12 units/kg/hr). MAX INITIAL infusion rate is 1,000 units/hr. Target Heparin UFH Level (anti-Xa activity) = 0.3 - 0.7 IU/mL Start adjustment schedule 6 hours after starting infusion. If Heparin UFH Level is: - less than 0.1 IU/mL, administer PRN bolus and increase rate by 400 units per hr (4 units/kg/hr) - 0.1 - 0.29 IU/mL, administer PRN bolus and increase rate by 200 units per hr (2 units/kg/hr) - 0.3 - 0.7 IU/mL, No Change - 0.71 - 0.85 IU/mL, decrease rate by 100 units per hr (1 units/kg/hr) - 0.86 - 1.05 IU/mL, stop infusion for 30 minutes, then decrease rate by 200 units per hr (2 units/kg/hr) - Greater than 1.05 IU/mL, stop infusion for 60 minutes, then decrease rate by 300 units per hour (3 units/kg/hr) Repeat Heparin UFH Level 6 hours after initiating heparin. Then 6 hours after each dose adjustment. When 2 consecutive Heparin UFH Level within target range of 0.3 - 0.7 IU/mL, change Heparin UFH Level to once every 24 hours with A.M. labs while on heparin. RN to order required Heparin UFH Level - Per Protocol, Routine, Indication: ACS (STEMI vs NSTEMI vs UA) New Bag 03/14/2019 12:45 AM EDT 1,000 Units/hr 20 mL/hr insulin lispro (HumaLOG) VIAL injection 1-4 Units 1-4 Units, Subcutaneous, 4 TIMES DAILY BEFORE MEALS & NIGHTLY, First dose on Thu03/14/19 at 0245, Until Discontinued, CORRECTION BOLUS Sensitive to insulin lean patient or total daily dose of all insulin needed to achieve glycemic control less than 30 units BG 140 - 160 Give 1 unit BG 161 - 200 Give 2 units BG 201 - 240 Give 3 units BG greater than 240, give 4 units and recheck BG in 2 hours. If less than 240 after two hours, give no insulin and resume prior schedule. If BG remains greater than 240, repeat 4 units (no more than three times) & call for new basal insulin orders. DO NOT hold if NPO, unless specifically told to do so., Routine iohexol (OMNIPAQUE) 350 mg/mL solution 0-200 mL 0-200 mL, Intravenous, ONCE PRN, 1 dose, Starting on Thu03/16/19 at 1211, Until Thu03/16/19 at 1219, Per Protocol, Warning Vesicant/Irritant Medication , Radiology Contrast, Routine Given 03/16/2019 12:19 PM EDT 78 mLs isosorbide mononitrate (IMDUR) CR tablet 30 mg 30 mg, Oral, EVERY MORNING, First dose on Thu03/14/19 at 1300, Until Discontinued, DO NOT CRUSH OR OPEN, Routine Given 03/14/2019 1:03 PM EDT 30 mg lidocaine (XYLOCAINE) 10 mg/mL (1 %) injection 3 mg 3 mg (0.3 mL), Subcutaneous, ONCE PRN, 1 dose, Starting on Thu03/14/19 at 0047, Until Thu03/16/19 at 1756, for discomfort with PIV insertion, Routine metoprolol tartrate (LOPRESSOR) tablet 25 mg 25 mg, Oral, EVERY 6 HOURS SCHEDULED, First dose on Thu03/15/19 at 0830, Until Discontinued, Hold for SBP less than 90 or heart rate less than 50, Routine Given 03/16/2019 11:35 AM EDT 25 mg Given 03/16/2019 5:12 AM EDT 25 mg Given 03/15/2019 11:31 PM EDT 25 mg metoprolol tartrate (LOPRESSOR) tablet 75 mg 75 mg, Oral, EVERY 6 HOURS SCHEDULED, First dose on Thu03/14/19 at 0900, Until Discontinued, Please hold if SBP<90 mmHg and HR<60bpm. Thanks!, Routine Given 03/15/2019 12:12 AM EDT 75 mg Given 03/14/2019 6:05 PM EDT 75 mg oxyCODONE (ROXICODONE) immediate release tablet 10 mg 10 mg, Oral, 4 TIMES DAILY PRN, Starting on Thu03/14/19 at 0219, Until Thu03/16/19 at 1756, Moderate-severe Pain, Routine Given 03/15/2019 8:32 PM EDT 10 mg Given 03/14/2019 7:53 PM EDT 10 mg Given 03/14/2019 2:55 AM EDT 10 mg pantoprazole (PROTONIX) tablet 40 mg 40 mg, Oral, 2 TIMES DAILY, First dose on Thu03/14/19 at 0245, Until Discontinued, DO NOT CRUSH OR OPEN, Routine Given 03/16/2019 8:49 AM EDT 40 mg Given 03/15/2019 8:32 PM EDT 40 mg Given 03/15/2019 8:54 AM EDT 40 mg rosuvastatin (CRESTOR) tablet 40 mg 40 mg, Oral, EVERY EVENING, First dose on Thu03/14/19 at 0245, Until Discontinued, Routine Given 03/15/2019 5:47 PM EDT 40 mg Given 03/14/2019 4:34 PM EDT 40 mg Given 03/14/2019 2:55 AM EDT 40 mg sodium chloride 0.9 % (flush) flush 5 mL 5 mL, Intravenous, 2 TIMES DAILY, First dose on Thu03/14/19 at 0115, Until Discontinued, Routine Given 03/15/2019 9:00 AM EDT 5 mLs sodium chloride 0.9 % (flush) flush 5 mL 5 mL, Intravenous, 2 TIMES DAILY, First dose on Thu03/14/19 at 0245, Until Discontinued, Routine Given 03/15/2019 8:32 PM EDT 5 mLs Given 03/15/2019 9:00 AM EDT 5 mLs Given 03/14/2019 8:55 AM EDT 5 mLs sodium chloride 0.9 % (flush) flush 5 mL 5 mL, Intravenous, EVERY 12 HOURS, First dose on Thu03/14/19 at 0245, Until Discontinued, Routine Given 03/15/2019 2:39 PM EDT 5 mLs Given 03/14/2019 7:54 PM EDT 5 mLs sodium chloride 0.9 % (flush) flush 5-20 mL 5-20 mL, Intravenous, EVERY 1 MIN PRN, Starting on Thu03/14/19 at 0047, Until Thu03/16/19 at 1756, flush, Flush pertains to all indwelling lines. Flush per protocol found in the job aid using the link provided on this medication record., Routine sodium chloride 0.9% infusion 100 mL/hr, Intravenous, CONTINUOUS, Starting on Thu03/14/19 at 0245, Until Thu03/14/19 at 1133, Cath (Day of Procedure) New Bag 03/14/2019 2:59 AM EDT 100 mL/hr 100 mL/hr sodium chloride 0.9% infusion 100 mL/hr, Intravenous, CONTINUOUS, Starting on Thu03/14/19 at 1130, Until Thu03/14/19 at 1133, Cath (Recovery-Hospital Unit) New 03/14/2019 11:11 AM EDT 100 mL/hr 100 m L/hr topiramate (TOPAMAX) tablet 50 mg 50 mg, Oral, NIGHTLY, First dose on Thu03/14/19 at 2100, Until Discontinued, Routine Given 03/15/2019 9:36 PM EDT 50 mg Given 03/14/2019 8:20 PM EDT 50 mg documented in this encounter Active and Recently Administered Medications Times are shown in EDT. Scheduled Medication Order 03/14/2019 03/15/2019 03/16/2019 amLODIPine (NORVASC) tablet 2.5 mg 2.5 mg, Oral, DAILY, First dose on Thu03/15/19 at 1000, Until Discontinued, Routine 1118 (Given - Provider: Jacqueline Montes De Oca RN - Comment: computer note sent x2 ... called... Just received MED) 0849 (Given - Provider: Heather Jenkins RN) aspirin chewable tablet 81 mg 81 mg, Oral, DAILY, First dose on Thu03/14/19 at 0900, Until Discontinued, Routine 0854 (Given - Provider: Mariela Nichols RN)1003 (OCT Hold - Provider: Admin Adt - Reason: Transfer to a Procedural area)1133 (MAR Unhold - Provider: Admin Adt) 0855 (Given - Provider: Jacqueline Montes eD Oca RN) 0849 (Given - Provider: Heather Jenkins, VERO) buPROPion (WELLBUTRIN SR or ZYBAN) SR tablet 150 mg 150 mg, Oral, 2 TIMES DAILY, First dose on Thu03/14/19 at 0900, Until Discontinued, DO NOT CRUSH OR OPEN, Routine 0853 (Given - Provider: Mariela Nichols RN)1003 (OCT Hold - Provider: Admin Adt - Reason: Transfer to a Procedural area)1133 ([facility] Unhold - Provider: Admin Adt)2099 (Given - Provider: Keeley Arias RN) 0855 (Given - Provider: Jacqueline Montes De Oca, VERO)2030 (Given - Provider: Beverly Chan, VERO) 0849 (Given - Provider: Heather Jenkins RN) clopidogrel (PLAVIX) tablet 75 mg (CANCELED) 75 mg, Oral, DAILY, First dose on Thu03/14/19 at 0900, Until Discontinued, Routine 0853 (Given - Provider: Mariela Nichols RN)1003 ([facility] Hold - Provider: Admin Adt - Reason: Transfer to a Procedural area)1133 ([facility] Unhold - Provider: Admin Adt) cyclobenzaprine (FLEXERIL) tablet 10 mg 10 mg, Oral, NIGHTLY, First dose on Thu03/14/19 at 2100, Until Discontinued, Routine 1003 ([facility] Hold - Provider: Admin Adt - Reason: Transfer to a Procedural area)1133 (OCT Unhold - Provider: Admin Adt)2017 (Given - Provider: Keeley Arias RN) 2030 (Given - Provider: Beverly Chan RN) DULoxetine (CYMBALTA) capsule 60 mg 60 mg, Oral, 2 TIMES DAILY, First dose on Thu03/14/19 at 0900, Until Discontinued, Routine 0854 (Given - Provider: Mariela Nichols RN)1003 (OCT Hold - Provider: Admin Adt - Reason: Transfer to a Procedural area)1133 ([facility] Unhold - Provider: Admin Adt)2017 (Given - Provider: Keeley Arias RN) 0855 (Given - Provider: Jacqueline Montes De Oca RN)2030 (Given - Provider: Beverly Chan RN) 0849 (Given - Provider: Heather Jenkins, VERO) gabapentin (NEURONTIN) capsule 300 mg(Linked Group 1) 300 mg, Oral, 2 TIMES DAILY, First dose on Thu03/14/19 at 0745, Until Discontinued, Routine 0853 (Given - Provider: Mariela Nichols, VERO)1003 (OCT Hold - Provider: Admin Adt - Reason: Transfer to a Procedural area)1133 (OCT Unhold - Provider: Admin Adt)1223 (Given - Provider: Mariela Nichols RN) 0639 (Given - Provider: Keeley Arias RN)1118 (Given - Provider: Jacqueline Montes De Oca RN) 0617 (Given - Provider: Beverly Chan, VERO)1135 (Given - Provider: Heather Jenkins, VERO) gabapentin (NEURONTIN) capsule 600 mg(Linked Group 1) 600 mg, Oral, NIGHTLY, First dose on Thu03/14/19 at 2100, Until Discontinued, Routine 1003 (OCT Hold - Provider: Admin Adt - Reason: Transfer to a Procedural area)1133 (OCT Unhold - Provider: Admin Adt)2017 (Given - Provider: Keeley Arias RN) 2031 (Given - Provider: Beverly Chan, VERO) insulin lispro (HumaLOG) VIAL injection 1-4 Units(Linked Group 2) 1-4 Units, Subcutaneous, 4 TIMES DAILY BEFORE MEALS & NIGHTLY, First dose on Thu03/14/19 at 0245, Until Discontinued, CORRECTION BOLUS Sensitive to insulin lean patient or total daily dose of all insulin needed to achieve glycemic control less than 30 units BG 140 - 160 Give 1 unit BG 161 - 200 Give 2 units BG 201 - 240 Give 3 units BG greater than 240, give 4 units and recheck BG in 2 hours. If less than 240 after two hours, give no insulin and resume prior schedule. If BG remains greater than 240, repeat 4 units (no more than three times) & call for new basal insulin orders. DO NOT hold if NPO, unless specifically told to do so., Routine 0245 (Not Given - Provider: Keeley Arias RN - Reason: Medication not available)0730 (Not Given - Provider: Mariela Nichols RN - Reason: Order parameters not met)1003 (MAR Hold - Provider: Admin Adt - Reason: Transfer to a Procedural area)1130 (Automatically Held - Provider: Admin Adt)1133 (MAR Unhold - Provider: Admin Adt)1142 (Not Given - Provider: Mariela Nichols RN - Reason: Order parameters not met)1630 (Not Given - Provider: Mariela Nichols RN - Reason: Order parameters not met)2014 (Not Given - Provider: Keeley Arias RN - Reason: Order parameters not met) 0730 (Not Given - Provider: Jacqueline Montes De Oca RN - Reason: Order parameters not met)1200 (Not Given - Provider: Jacqueline Montes De Oca RN - Reason: Order parameters not met)1630 (Not Given - Provider: Jacqueline Montes De Oca RN - Reason: Order parameters not met)2100 (Not Given - Provider: Beverly Chan RN - Reason: Order parameters not met) 0730 (Not Given - Provider: Heather Jenkins RN - Reason: Order parameters not met)1130 (Not Given - Provider: Heather Jenkins RN - Reason: Order parameters not met) isosorbide mononitrate (IMDUR) CR tablet 30 mg (CANCELED) 30 mg, Oral, EVERY MORNING, First dose on Thu03/14/19 at 1300, Until Discontinued, DO NOT CRUSH OR OPEN, Routine 1303 (Given - Provider: Mariela Nichols RN) 0642 (Not Given - Provider: Keeley Arias RN - Reason: See comment - Comment: held per Dr. Simpson V.ONatalie for hypotension) metoprolol tartrate (LOPRESSOR) tablet 25 mg 25 mg, Oral, EVERY 6 HOURS SCHEDULED, First dose on Thu03/15/19 at 0830, Until Discontinued, Hold for SBP less than 90 or heart rate less than 50, Routine 0859 (Given - Provider: Jacqueline Montes De Oca RN)1119 (Not Given - Provider: Jacqueline Montes De Oca RN - Reason: Order parameters not met)1747 (Given - Provider: Jacqueline Montes De Oca RN)2331 (Given - Provider: Beverly Chan, VERO) 0512 (Given - Provider: Beverly Chan, RN)1135 (Given - Provider: Heather Jenkins, RN) metoprolol tartrate (LOPRESSOR) tablet 75 mg (CANCELED) 75 mg, Oral, EVERY 6 HOURS SCHEDULED, First dose on Thu03/14/19 at 0900, Until Discontinued, Please hold if SBP<90 mmHg and HR<60bpm. Thanks!, Routine 0900 (Hold - Provider: Mariela Nichols RN - Reason: Order parameters not met - Comment: HR sustaining in 50s)1003 (OCT Hold - Provider: Admin Adt - Reason: Transfer to a Procedural area)1133 (OCT Unhold - Provider: Admin Adt)1805 (Given - Provider: Mariela Nichols RN) 0012 (Given - Provider: Keleey Arias RN)0643 (Not Given - Provider: Keeley Arias RN - Reason: See comment - Comment: held per Dr. Calvin Villanueva for hypotension) pantoprazole (PROTONIX) tablet 40 mg 40 mg, Oral, 2 TIMES DAILY, First dose on Thu03/14/19 at 0245, Until Discontinued, DO NOT CRUSH OR OPEN, Routine 0255 (Given - Provider: Keeley Arias RN)0853 (Given - Provider: Mariela Nichols RN)1003 (OCT Hold - Provider: Admin Adt - Reason: Transfer to a Procedural area)1133 (OCT Unhold - Provider: Admin Adt)2018 (Given - Provider: Keeley Arias RN) 0854 (Given - Provider: Jacqueline Montes De Oca RN)2031 (Given - Provider: Beverly Chan, VERO) 0849 (Given - Provider: Heather Jenkins, RN) rosuvastatin (CRESTOR) tablet 40 mg 40 mg, Oral, EVERY EVENING, First dose on Thu03/14/19 at 0245, Until Discontinued, Routine 0255 (Given - Provider: Keeley Arias RN)1003 (OCT Hold - Provider: Admin Adt - Reason: Transfer to a Procedural area)1133 (OCT Unhold - Provider: Admin Adt)1634 (Given - Provider: Mariela Nichols RN) 1747 (Given - Provider: Jacqueline Montes De Oca, VERO) sodium chloride 0.9 % (flush) flush 5 mL 5 mL, Intravenous, 2 TIMES DAILY, First dose on Thu03/14/19 at 0115, Until Discontinued, Routine 0115 (Not Given - Provider: Keeley Arias RN - Reason: Contraindicated)0900 (Not Given - Provider: Mariela Nichols RN - Reason: Contraindicated - Comment: iv infusing)1003 (OCT Hold - Provider: Admin Adt - Reason: Transfer to a Procedural area)1133 (OCT Unhold - Provider: Admin Adt)2100 (Not Given - Provider: Keeley Arias RN - Reason: Contraindicated) 0900 (Given - Provider: Jacqueline Montes De Oca RN)2100 (Not Given - Provider: Beverly Chan RN - Reason: See comment - Comment: given earlier) 0900 (Not Given - Provider: Heather Jenkins RN - Reason: Contraindicated) sodium chloride 0.9 % (flush) flush 5 mL 5 mL, Intravenous, 2 TIMES DAILY, First dose on Thu03/14/19 at 0245, Until Discontinued, Routine 0245 (Not Given - Provider: Keeley Arias RN - Reason: Contraindicated)0855 (Given - Provider: Mariela Nichols RN)1003 (OCT Hold - Provider: Admin Adt - Reason: Transfer to a Procedural area)1133 (OCT Unhold - Provider: Admin Adt)2100 (Not Given - Provider: Keeley Arias RN - Reason: Contraindicated) 0900 (Given - Provider: Jacqueline Montes De Oca RN)2032 (Given - Provider: Beverly Chan, VERO) 0900 (Not Given - Provider: Heather Jenkins RN - Reason: Contraindicated) sodium chloride 0.9 % (flush) flush 5 mL 5 mL, Intravenous, EVERY 12 HOURS, First dose on Thu03/14/19 at 0245, Until Discontinued, Routine 0245 (Not Given - Provider: Keeley Arias RN - Reason: See comment - Comment: flushed earlier)1445 (Not Given - Provider: Mariela Nichols RN - Reason: See comment - Comment: iv flushed at beginning of shift)1954 (Given - Provider: Keeley Arias RN) 0245 (Not Given - Provider: Keeley Arias RN - Reason: Contraindicated)143 9 (Given - Provider: Jacqueline Montes De Oca RN) 0245 (Not Given - Provider: Beverly Chan RN - Reason: See comment - Comment: given earlier)1445 (Not Given - Provider: Heather Jenkins RN - Reason: Contraindicated) topiramate (TOPAMAX) tablet 50 mg 50 mg, Oral, NIGHTLY, First dose on Thu03/14/19 at 2100, Until Discontinued, Routine 1003 (OCT Hold - Provider: Admin Adt - Reason: Transfer to a Procedural area)1133 (OCT Unhold - Provider: Admin Adt)2019 (Given - Provider: Keeley Arias RN) 213 (Given - Provider: Beverly Chan RN) Continuous Medication Order 03/14/2019 03/15/2019 03/16/2019 heparin 25,000 units in dextrose 5% 500 mL infusion (CANCELED)(Linked Group 3) 0-5,000 Units/hr (0-100 mL/hr), Intravenous, CONTINUOUS, Starting on Thu03/14/19 at 0315, Until Thu03/14/19 at 1226, BEGIN infusion at 1,000 units per hr (12 units/kg/hr). MAX INITIAL infusion rate is 1,000 units/hr. Target Heparin UFH Level (anti-Xa activity) = 0.3 - 0.7 IU/mL Start adjustment schedule 6 hours after starting infusion. If Heparin UFH Level is: - less than 0.1 IU/mL, administer PRN bolus and increase rate by 400 units per hr (4 units/kg/hr) - 0.1 - 0.29 IU/mL, administer PRN bolus and increase rate by 200 units per hr (2 units/kg/hr) - 0.3 - 0.7 IU/mL, No Change - 0.71 - 0.85 IU/mL, decrease rate by 100 units per hr (1 units/kg/hr) - 0.86 - 1.05 IU/mL, stop infusion for 30 minutes, then decrease rate by 200 units per hr (2 units/kg/hr) - Greater than 1.05 IU/mL, stop infusion for 60 minutes, then decrease rate by 300 units per hour (3 units/kg/hr) Repeat Heparin UFH Level 6 hours after initiating heparin. Then 6 hours after each dose adjustment. When 2 consecutive Heparin UFH Level within target range of 0.3 - 0.7 IU/mL, change Heparin UFH Level to once every 24 hours with A.M. labs while on heparin. RN to order required Heparin UFH Level - Per Protocol, Routine, Indication: ACS (STEMI vs NSTEMI vs UA) 0045 (New Bag - Provider: Keeley Arias RN)0959 (Stopped - Provider: Diamond Ernandez RN)1003 (OCT Hold - Provider: Admin Adt - Reason: Transfer to a Procedural area)1133 (OCT Unhold - Provider: Admin Adt) sodium chloride 0.9% infusion (CANCELED) 100 mL/hr, Intravenous, CONTINUOUS, Starting on Thu03/14/19 at 0245, Until Thu03/14/19 at 1133, Cath (Day of Procedure) 0259 (New Bag - Provider: Keeley Arias RN) sodium chloride 0.9% infusion (CANCELED) 100 mL/hr, Intravenous, CONTINUOUS, Starting on Thu03/14/19 at 1130, Until Thu03/14/19 at 1133, Cath (Recovery-Hospital Unit) 1111 (New Bag - Provider: Keeley Kyle RN)1130 (Stopped - Provider: Mariela Nichols RN) PRN Medication Order 03/14/2019 03/15/2019 03/16/2019 acetaminophen (TYLENOL) tablet 650 mg 650 mg, Oral, EVERY 4 HOURS PRN, Starting on Thu03/14/19 at 0219, Until Thu03/16/19 at 1756, Pain, Headaches, Maximum dose of acetaminophen is 4000 mg from all sources in 24 hours., Routine 1003 (OCT Hold - Provider: Admin Adt - Reason: Transfer to a Procedural area)1133 (OCT Unhold - Provider: Admin Adt)1952 (Given - Provider: Keeley Arias RN) dextrose 50% intravenous solution 25-50 mL(Linked Group 4) 25-50 mL (12.5-25 g), Intravenous, EVERY 1 HOUR PRN, Starting on Thu03/14/19 at 0219, Until Thu03/16/19 at 1756, Low blood sugar, For BG 50-70 mg/dL: Oral treatment preferred:?? If able to drink, give 120 mL Juice or Regular (not diet) soda OR If NPO, give 15 gram glucose 40% oral gel massaged into buccal mucosa OR if unconscious or uncooperative, give 12.5 gram (25 mL) Dextrose 50% IV OR, if no IV access, give 1 mg Glucagon IM. For BG less than 50 mg/dL: Oral treatment preferred:?? If able to drink, give 240 mL Juice or Regular (not diet) soda OR If NPO, give 30 gram glucose 40% oral gel massaged in buccal mucosa OR if unconscious or uncooperative, give 25 gram (50 mL) Dextrose 50% IV OR, if no IV access, give 1 mg Glucagon IM. Recheck BG in 30 minutes. May repeat juice, gel, dextrose or glucagon once per episode. To avoid extravasation, push Dextrose 50% SLOWLY (3 mL over 1 minute) in a patent, running IV, preferably a central line. For persistent hypoglycemia, consider longer-acting treatment for the duration of the active insulin., Routine 1003 (MAR Hold - Provider: Admin Adt - Reason: Transfer to a Procedural area)1133 (MAR Unhold - Provider: Admin Adt) fentaNYL 50 mcg/mL multi-dose injection (CANCELED) ONCE PRN, Starting on Thu03/14/19 at 1008, Until Thu03/14/19 at 1133, Intra-Operative (Intra-Procedure), Routine 1008 (Given - Provider: Svitlana Dill RN) glucagon (human recombinant) injection SolR 1 mg(Linked Group 4) 1 mg, Intramuscular, EVERY 1 HOUR PRN, Starting on Thu03/14/19 at 0219, Until Thu03/16/19 at 1756, Low blood sugar, For BG 50-70 mg/dL: Oral treatment preferred:?? If able to drink, give 120 mL Juice or Regular (not diet) soda OR If NPO, give 15 gram glucose 40% oral gel massaged into buccal mucosa OR if unconscious or uncooperative, give 12.5 gram (25 mL) Dextrose 50% IV OR, if no IV access, give 1 mg Glucagon IM. For BG less than 50 mg/dL: Oral treatment preferred:?? If able to drink, give 240 mL Juice or Regular (not diet) soda OR If NPO, give 30 gram glucose 40% oral gel massaged in buccal mucosa OR if unconscious or uncooperative, give 25 gram (50 mL) Dextrose 50% IV OR, if no IV access, give 1 mg Glucagon IM. Recheck BG in 30 minutes. May repeat juice, gel, dextrose or glucagon once per episode. To avoid extravasation, push Dextrose 50% SLOWLY (3 mL over 1 minute) in a patent, running IV, preferably a central line. For persistent hypoglycemia, consider longer-acting treatment for the duration of the active insulin., Routine 1003 (OCT Hold - Provider: Admin Adt - Reason: Transfer to a Procedural area)1133 (OCT Unhold - Provider: Admin Adt) glucose (GLUTOSE) 40% oral gel(Linked Group 4) 15-30 g, Buccal, EVERY 30 MIN PRN, Starting on Thu03/14/19 at 0219, Until Thu03/16/19 at 1756, Low blood sugar, For BG 50-70 mg/dL: Oral treatment preferred:?? If able to drink, give 120 mL Juice or Regular (not diet) soda OR If NPO, give 15 gram glucose 40% oral gel massaged into buccal mucosa OR if unconscious or uncooperative, give 12.5 gram (25 mL) Dextrose 50% IV OR, if no IV access, give 1 mg Glucagon IM. For BG less than 50 mg/dL: Oral treatment preferred:?? If able to drink, give 240 mL Juice or Regular (not diet) soda OR If NPO, give 30 gram glucose 40% oral gel massaged in buccal mucosa OR if unconscious or uncooperative, give 25 gram (50 mL) Dextrose 50% IV OR, if no IV access, give 1 mg Glucagon IM. Recheck BG in 30 minutes. May repeat juice, gel, dextrose or glucagon once per episode. To avoid extravasation, push Dextrose 50% SLOWLY (3 mL over 1 minute) in a patent, running IV, preferably a central line. For persistent hypoglycemia, consider longer-acting treatment for the duration of the active insulin. 1 tube contains 15 grams of glucose (net weight of tube = 37.5 grams., Routine 1003 ([facility] Hold - Provider: Admin Adt - Reason: Transfer to a Procedural area)1133 ([facility] Unhold - Provider: Admin Adt) iohexol (OMNIPAQUE) 350 mg/mL solution 0-200 mL (COMPLETED) 0-200 mL, Intravenous, ONCE PRN, 1 dose, Starting on Thu03/16/19 at 1211, Until Thu03/16/19 at 1219, Per Protocol, Warning Vesicant/Irritant Medication , Radiology Contrast, Routine 1219 (Given - Provider: Carole Penny) iohexol (OMNIPAQUE) 350 mg/mL solution (CANCELED) ONCE PRN, Starting on Thu03/14/19 at 1051, Until Thu03/14/19 at 1107, Cath (Intra-Procedure), Routine 1051 (Given - Provider: Lexus Gutiérrez MD) lidocaine (XYLOCAINE) 10 mg/mL (1 %) injection 3 mg 3 mg (0.3 mL), Subcutaneous, ONCE PRN, 1 dose, Starting on Thu03/14/19 at 0047, Until Thu03/16/19 at 1756, for discomfort with PIV insertion, Routine 1003 ([facility] Hold - Provider: Admin Adt - Reason: Transfer to a Procedural area)1133 ([facility] Unhold - Provider: Admin Adt) midazolam (PF) (VERSED) multi-dose injection (CANCELED) ONCE PRN, Starting on Thu03/14/19 at 1008, Until Thu03/14/19 at 1107, Cath (Intra-Procedure), Routine 1008 (Given - Provider: Svitlana Dill RN) nitroGLYcerin (NITROSTAT) SL tablet 0.4 mg 0.4 mg, Sublingual, EVERY 5 MIN PRN, Starting on Thu03/14/19 at 0219, Until Thu03/16/19 at 1756, Chest pain, May repeat every 5 minutes for a total of three doses. Notify provider if chest pain not relieved with nitroglycerin. Do not administer nitroglycerin if the patient has received or taken phosphodiesterase (PDE-5) inhibitors such as sildenafil, tadalafil or vardenafil within the last 24 to 72 hours., Routine 1003 ([facility] Hold - Provider: Admin Adt - Reason: Transfer to a Procedural area)1133 ([facility] Unhold - Provider: Admin Adt) nitroGLYcerin 100 mcg/mL intracoronary dilution (CANCELED) ONCE PRN, Starting on Thu03/14/19 at 1030, Until Thu03/14/19 at 1107, Cath (Intra-Procedure), Routine 1030 (Given - Provider: Lexus Gutiérrez MD) oxyCODONE (ROXICODONE) immediate release tablet 10 mg 10 mg, Oral, 4 TIMES DAILY PRN, Starting on Thu03/14/19 at 0219, Until Thu03/16/19 at 1756, Moderate-severe Pain, Routine 0255 (Given - Provider: Keeley Arias, VERO)1003 ([facility] [facility] Hold - Provider: Admin Adt - Reason: Transfer to a Procedural area)1133 ([facility] Unhold - Provider: Admin Adt)1952 (Given - Provider: Keeley Arias, VERO) 2031 (Given - Provider: Beverly Chan RN) sodium chloride 0.9 % (flush) flush 5-20 mL 5-20 mL, Intravenous, EVERY 1 MIN PRN, Starting on Thu03/14/19 at 0047, Until Thu03/16/19 at 1756, flush, Flush pertains to all indwelling lines. Flush per protocol found in the job aid using the link provided on this medication record., Routine 1003 ([facility] Hold - Provider: Admin Adt - Reason: Transfer to a Procedural area)1133 ([facility] Unhold - Provider: Admin Adt) sodium chloride 0.9 % (flush) flush 5-20 mL 5-20 mL, Intravenous, EVERY 1 MIN PRN, Starting on Thu03/14/19 at 0219, Until Thu03/16/19 at 1756, flush, Flush pertains to all indwelling lines. Flush per protocol found in the job aid using the link provided on this medication record., Routine 1003 ([facility] Hold - Provider: Admin Adt - Reason: Transfer to a Procedural area)1133 ([facility] Unhold - Provider: Admin Adt) verapamil (ISOPTIN) injection (CANCELED) ONCE PRN, Starting on Thu03/14/19 at 1030, Until Thu03/14/19 at 1107, Administer over 2 Minutes, Cath (Intra-Procedure) 1030 (Given - Provider: Lexus Gutiérrez MD) Linked Groups Order Group 1: gabapentin (NEURONTIN) capsule 300 mgJump to med 300 mg, Oral, 2 TIMES DAILY, First dose on Thu03/14/19 at 0745, Until Discontinued, Routine And gabapentin (NEURONTIN) capsule 600 mgJump to med 600 mg, Oral, NIGHTLY, First dose on Thu03/14/19 at 2100, Until Discontinued, Routine Group 2: POCT Fingerstick Glucose (CANCELED) Routine, 4 TIMES DAILY BEFORE MEALS & AT BEDTIME, First occurrence on Thu03/14/19 at 0700, Until Specified, Consider choosing FOUR TIMES A DAY BEFORE MEALS AND AT BEDTIME as frequency for: Patients who have good hypoglycemia awareness: -Patients who are eating meals during the day and sleeping at night -Patient who are otherwise stable And insulin lispro (HumaLOG) VIAL injection 1-4 UnitsJump to med 1-4 Units, Subcutaneous, 4 TIMES DAILY BEFORE MEALS & NIGHTLY, First dose on Thu03/14/19 at 0245, Until Discontinued, CORRECTION BOLUS Sensitive to insulin lean patient or total daily dose of all insulin needed to achieve glycemic control less than 30 units BG 140 - 160 Give 1 unit BG 161 - 200 Give 2 units BG 201 - 240 Give 3 units BG greater than 240, give 4 units and recheck BG in 2 hours. If less than 240 after two hours, give no insulin and resume prior schedule. If BG remains greater than 240, repeat 4 units (no more than three times) & call for new basal insulin orders. DO NOT hold if NPO, unless specifically told to do so., Routine Group 3: heparin (porcine) injection 0-4,000 Units (CANCELED) 0-4,000 Units, Intravenous, BOLUS PER HEPARIN PROTOCOL, Starting on Thu03/14/19 at 0245, Until Thu03/14/19 at 1226, Per Protocol, START ADJUSTMENT SCHEDULE 6 HOURS AFTER STARTING INFUSION Heparin UFH Level between 0.1 - 0.29 IU/mL: Bolus 2,000 units Heparin UFH Level less than 0.1 IU/mL: Bolus 4,000 units, Routine And heparin 25,000 units in dextrose 5% 500 mL infusion (CANCELED)Jump to med 0-5,000 Units/hr (0-100 mL/hr), Intravenous, CONTINUOUS, Starting on Thu03/14/19 at 0315, Until Thu03/14/19 at 1226, BEGIN infusion at 1,000 units per hr (12 units/kg/hr). MAX INITIAL infusion rate is 1,000 units/hr. Target Heparin UFH Level (anti-Xa activity) = 0.3 - 0.7 IU/mL Start adjustment schedule 6 hours after starting infusion. If Heparin UFH Level is: - less than 0.1 IU/mL, administer PRN bolus and increase rate by 400 units per hr (4 units/kg/hr) - 0.1 - 0.29 IU/mL, administer PRN bolus and increase rate by 200 units per hr (2 units/kg/hr) - 0.3 - 0.7 IU/mL, No Change - 0.71 - 0.85 IU/mL, decrease rate by 100 units per hr (1 units/kg/hr) - 0.86 - 1.05 IU/mL, stop infusion for 30 minutes, then decrease rate by 200 units per hr (2 units/kg/hr) - Greater than 1.05 IU/mL, stop infusion for 60 minutes, then decrease rate by 300 units per hour (3 units/kg/hr) Repeat Heparin UFH Level 6 hours after initiating heparin. Then 6 hours after each dose adjustment. When 2 consecutive Heparin UFH Level within target range of 0.3 - 0.7 IU/mL, change Heparin UFH Level to once every 24 hours with A.M. labs while on heparin. RN to order required Heparin UFH Level - Per Protocol, Routine, Indication: ACS (STEMI vs NSTEMI vs UA) Group 4: glucose (GLUTOSE) 40% oral gelJump to med 15-30 g, Buccal, EVERY 30 MIN PRN, Starting on Thu03/14/19 at 0219, Until Thu03/16/19 at 1756, Low blood sugar, For BG 50-70 mg/dL: Oral treatment preferred:?? If able to drink, give 120 mL Juice or Regular (not diet) soda OR If NPO, give 15 gram glucose 40% oral gel massaged into buccal mucosa OR if unconscious or uncooperative, give 12.5 gram (25 mL) Dextrose 50% IV OR, if no IV access, give 1 mg Glucagon IM. For BG less than 50 mg/dL: Oral treatment preferred:?? If able to drink, give 240 mL Juice or Regular (not diet) soda OR If NPO, give 30 gram glucose 40% oral gel massaged in buccal mucosa OR if unconscious or uncooperative, give 25 gram (50 mL) Dextrose 50% IV OR, if no IV access, give 1 mg Glucagon IM. Recheck BG in 30 minutes. May repeat juice, gel, dextrose or glucagon once per episode. To avoid extravasation, push Dextrose 50% SLOWLY (3 mL over 1 minute) in a patent, running IV, preferably a central line. For persistent hypoglycemia, consider longer- acting treatment for the duration of the active insulin. 1 tube contains 15 grams of glucose (net weight of tube = 37.5 grams., Routine Or dextrose 50% intravenous solution 25-50 mLJump to med 25-50 mL (12.5-25 g), Intravenous, EVERY 1 HOUR PRN, Starting on Thu03/14/19 at 0219, Until Thu03/16/19 at 1756, Low blood sugar, For BG 50-70 mg/dL: Oral treatment preferred:?? If able to drink, give 120 mL Juice or Regular (not diet) soda OR If NPO, give 15 gram glucose 40% oral gel massaged into buccal mucosa OR if unconscious or uncooperative, give 12.5 gram (25 mL) Dextrose 50% IV OR, if no IV access, give 1 mg Glucagon IM. For BG less than 50 mg/dL: Oral treatment preferred:?? If able to drink, give 240 mL Juice or Regular (not diet) soda OR If NPO, give 30 gram glucose 40% oral gel massaged in buccal mucosa OR if unconscious or uncooperative, give 25 gram (50 mL) Dextrose 50% IV OR, if no IV access, give 1 mg Glucagon IM. Recheck BG in 30 minutes. May repeat juice, gel, dextrose or glucagon once per episode. To avoid extravasation, push Dextrose 50% SLOWLY (3 mL over 1 minute) in a patent, running IV, preferably a central line. For persistent hypoglycemia, consider longer-acting treatment for the duration of the active insulin., Routine Or glucagon (human recombinant) injection SolR 1 mgJump to med 1 mg, Intramuscular, EVERY 1 HOUR PRN, Starting on Thu03/14/19 at 0219, Until Thu03/16/19 at 1756, Low blood sugar, For BG 50-70 mg/dL: Oral treatment preferred:?? If able to drink, give 120 mL Juice or Regular (not diet) soda OR If NPO, give 15 gram glucose 40% oral gel massaged into buccal mucosa OR if unconscious or uncooperative, give 12.5 gram (25 mL) Dextrose 50% IV OR, if no IV access, give 1 mg Glucagon IM. For BG less than 50 mg/dL: Oral treatment preferred:?? If able to drink, give 240 mL Juice or Regular (not diet) soda OR If NPO, give 30 gram glucose 40% oral gel massaged in buccal mucosa OR if unconscious or uncooperative, give 25 gram (50 mL) Dextrose 50% IV OR, if no IV access, give 1 mg Glucagon IM. Recheck BG in 30 minutes. May repeat juice, gel, dextrose or glucagon once per episode. To avoid extravasation, push Dextrose 50% SLOWLY (3 mL over 1 minute) in a patent, running IV, preferably a central line. For persistent hypoglycemia, consider longer-acting treatment for the duration of the active insulin., Routine documented in this encounter Care Teams Seo Assistant Relationship Specialty Start Date End Date Coni Lim MD [address] [place] [address] PCP - General 07/16/10 documented as of this encounter
--- OUTSIDE RECORDS SUMMARY | 2024-04-30 13:40 | XMS_ITS | Encounter Summary ---
Author Organization [facility] [place] [address] Care Team Providers Care Head Of Geography Name Role Phone Coni Lim MD Primary Care Provider Encounter Details Date Type Department Care Team (Late st Contact Info) Description 05/24/2020 [place] [address] Keeley Paredes MD [facility] [place] [address] Social History Tobacco Use Types Packs/Day Years [...] encounter Miscellaneous Notes * Telephone Encounter - Naye Weiss - 05/25/2020 8:14 AM EDT Scheduled * Telephone Encounter - Naye Weiss - 05/24/2020 12:41 PM EDT Need to call to schedule Return in about 3 weeks (around 06/14/2020) for EPF, (lid check). With Lena documented in this encounter Plan of Treatment Not on file documented as of this encounter Visit Diagnoses Not on filedocumented in this encounter Care Teams Head Of Geography Relationship Specialty Start Date End Date Coni Lim MD [address] [place] [address] PCP - General 07/16/10 documented as of this encounter
--- OUTSIDE RECORDS SUMMARY | 2024-04-30 13:40 | XMS_ITS | Encounter Summary ---
Author Organization [facility] Address [facility] [place] [address] Care Team Providers Care Event Promotions Coordinator Name Role Phone Coni Lim MD Primary Care Provider [phone] Encounter Details Date Type Department Care Team (Late st Contact Info) Description 06/07/2021 Telephone Cardiology at [address] [address] Coni Wilson PA [facility] [place] [address] Social History Tobacco Use Types Packs/Day Years [...] encounter Miscellaneous Notes * Telephone Encounter - Coni Lew PA - 06/07/2021 2:24 PM EDT 06/07/2021 Romeo Coe Initial Contact Date: 06/07/2021 Initial contact time: 2:26 PM Referring Provider: Maria Luisa GROVER Patient Location: [facility] Past Medical History: ASCVD s/p??multiple??JACINDA??PCIs??to the mid LAD due to frequent??instent restenosis since 2011 and??last??JACINDA??PCI to??the??RCA??in 11/2016 HTN HLD T2DM Hx TIA GERD Smoker (unknown status) Presenting Symptoms per OSH: Romeo Coe is a 55 year old male who presented to the ER with multiple complaints including dental pain, groin abscess and chest acevedo. Patient noted to have chest pain during evaluation by outside provider. Patient notes chest pain has been waxing and waning over the past few days. Occurring atrest. Becomes diaphoretic with the pain. ER provider spoke with local plastic injection mold maker (Dr. Gutierrez) who recommended speaking with for transfer for [facility]. Vital Signs: HR 80s, SBP 110s Pertinent Diagnostic Findings: EKG: SR without acute ischemic changes Troponin negative x1 CBC and BMP not reported Past cardiac studies: Echo 02/2019 SUMMARY: 1. There is normal global left [...] See remainder of report for additional findings. Cath 02/2019 Coronary Angiography: Dominance: Right Left Main The [...] RCA. The RPDA was moderate in size. Conclusions: * Two vessel coronary artery disease (LAD and RCA) OSH Interventions: ASA 324mg Assessment & Plan: Romeo Coe is a 55 year old male with a history of ASCVD s/p??multiple??JACINDA??PCIs??to the mid LAD due to frequent??instent restenosis since 2011 and??last??JACINDA??PCI to??the??RCA??in 11/2016, HTN,HLD, T2DM, Hx TIA, GERD, and smoker (unknown status) who presented to the OSH with multiple complaints including chest pain, dental pain and groin wound. Chest pain waxing and waning over past 3 daysnow occurring with rest. Presentation concerning for unstable angina. Troponin negative x1. EKG nonischemic. OSH plastic injection mold maker recommended transfer for C. Loaded with ASA 324mg. Recommended to startIV heparin and load Plavix 300mg x1. PRN SL NTG if needed, currently stable with 1/10 chest pain. Obtain echo if able. Trend troponin and EKGs. Continue home CAD medical therapies including metoprolol, rosuvastatin 40mg. Transfer expected 06/08/21. In regards to his groin wound, provider noted a draining abscess. Plans to start Keflex. The above recommendations were based on my discussion with Maria Luisa GROVER; I have not personally interviewed or examined this patient. I encouraged Maria Luisa GROVER to contact us if there is any change in symptoms, decision-making, orfurther need for guidance in management. Coni Lew PA-C Cardiovascular Medicine Pager [phone] 06/07/2021 documented in this encounter Plan of Treatment Not on file documented as of this encounter Visit Diagnoses Not on filedocumented in this encounter Care Teams Event Promotions Coordinator Relationship Specialty Start Date End Date Coni Lim MD [address] [place] [address] PCP - General 07/16/10 documented as of this encounter
--- OUTSIDE RECORDS SUMMARY | 2024-04-30 13:41 | XMS_ITS | Encounter Summary ---
Author Organization [facility] Address [facility] [place] [address] Care Team Providers Care Digital Print Operator Name Role Phone Coni Lim MD Primary Care Provider [phone] Reason for Visit * Auth/Cert Specialty Diagnoses / Procedures Referred By Ruby t Referred To Contact Diagnoses ACS (acute coronary syndrome) UNSTABLE ANGINA Referral ID Status Reason Start Date Expiration Date Visits Re quested Visits Authorized [id number] 1 1 Encounter Details Date Type Department Care Team (Late st Contact Info) Description 03/14/2019 1:01 PM EDT - 03/14/2019 2:01 PM EDT Surgery Supervisor [employer] [id number] Lexus Gutiérrez MD [facility] [place] [address] CARDIAC CATHETERIZATION Social History Tobacco Use Types [...] Sign Reading Time Taken Comments Blood Pressure 120/73 03/14/2019 12:50 PM EDT Pulse 63 03/14/2019 12:50 PM EDT Temperature 36.7 ??C (98.1 ??F) 03/14/2019 1 1:42 AM EDT Respiratory Rate 10 03/14/2019 12:5 0 PM EDT Oxygen Saturation 97% 03/14/2019 12: 50 PM EDT Inhaled Oxygen Concentration - - Weight 101.3 kg (223 lb 5.2 oz) 019 11:00 PM EDT Height 177.8 cm (5' 10) 03/13/2019 11: 00 PM EDT reported Body Mass Index 31.6 03/13/2019 11:00 PM EDT documented in this encounter Discharge Summaries * Wale Mckeon MD - 03/16/2019 3:38 PM EDT Discharge Summary Patient Name: Romeo Coe Patient Age: 53 y.o. Language: Bahraini Race: White Ethnicity: Not nor Admit date: [...] Contact Information: MD Esperanza Solis, KRYSTINA Bush, STAGE DIRECTOR [phone] Discharge Diagnoses (Hospital Problems) and Secondary Diagnoses [...] TIA and GERD who was transferred from [facility] with a diagnosis of UAP. ?? He [...] was called. ?? His last admission [facility] was in Aug 2017 when he presented [...] started on Heparin gtt and transferred to [facility] for cardiac cath. Hospital Course: Undifferentiated Chest Pain - Coronary Vasospasm/Microvessel angina vs Non- Cardiac Chest Pain Romeo Coe is a 53 yo M transferred from [facility] for evaluation of unstable angina. Troponins negative. [...] PF, Split 07/30/2013 ??? Influenza Vaccine (Novel) [id number], Injectable 05/24/2009 ??? Influenza Vaccine w/Preservative, Split [...] appointments: During 8am-5pm Thursday through Thursday call [phone] to speak with a nurse in the cardiology clinic All other times call [phone] and ask to speak to the road design draftsperson vocational childcare teacher. Return to work: Ok to resume, no heavy lifting for one week (nothing over 10 lbs) Driving: No driving for 48 hours after catheterization. Follow up Appointments: PCP Coni Lim MD/Keo Ballard [phone] Your follow up appointment is scheduled for March 25, 2019 at 10 45 am Cardiology- Dr. Lawson - [phone] (First apt at [facility] [place] [place], then you will be seen at [facility] thereafter).Your follow up appointment is scheduled for Saturday April 13, 2019 at 1:15 pm Home oxygen therapy: N/A Arrangements for VNA/home care: none Discharge References/Attachments None Esperanza Collier APRN Cardiovascular Medicine Pager [phone] 03/16/2019 documented in this encounter Discharge Instructions * Discharge Instructions* Esperanza Collier APRN - 03/16/2019 3:00 PM EDT Call your doctor if: Chest pain, shortness of breath, pain or swelling in legs occurs. If you have non-emergent questions between now and the time of your follow up appointments: During 8am-5pm Thursday through Thursday call [phone] to speak with a nurse in the cardiology clinic All other times call [phone] and ask to speak to the road design draftsperson vocational childcare teacher. Return to work: Ok to resume, no heavy lifting for one week (nothing over 10 lbs) Driving: No driving for 48 hours after catheterization. Follow up Appointments: PCP Coni Lim MD/Keo Ballard [phone] Your follow up appointment is scheduled for March 25, 2019 at 10 45 am Cardiology- Dr. Lawson - [phone] (First apt at [facility] [place] [place], then you will be seen at [facility] thereafter).Your follow up appointment is scheduled for [...] Progress Note Patient Name: Romeo Coe Service: PARK INTERPRETIVE RANGER / PA Responsible Attending: Wale Mckeon MD [...] Full code Discussed with MD Esperanza Brar [facility] Cardiovascular Medicine Pager [phone] 03/16/2019 Attending Creative Developer Addendum: This patient was seen in conjunction with Esperanza Collier as part of a shared visit. I have independently interviewed and examined the patient and reviewed the pertinent diagnostic information. I agree with the principal findings documented above. The assessment and plan were formulated in discussion with me. Ruled out PE with CT today. Ready for discharge on medical therapies. Wale Mckeon MD, [facility], [facility] Staff Creative Developer pager [phone] * Jacqueline Montes De Oca RN - [...] Progress Note Patient Name: Romeo Coe Service: PARK INTERPRETIVE RANGER / PA Responsible Attending: Wale Mckeon MD Reason for continued hospitalization: Evaluation and management of unstable angina S/p [facility] Medication adjustment Active Problems: Active Hospital Problems [...] Full code Discussed with MD Esperanza Brar [facility] Cardiovascular Medicine Pager [phone] 03/15/2019 Attending Creative Developer Addendum: This patient was seen in conjunction [...] limited us thus far. Wale Mckeon MD, [facility], [facility] Staff Creative Developer pager [phone] * Wale Mckeon MD - 03/14/2019 9:23 AM EDT Images from the original note were not included. Inpatient Cardiology Progress Note Patient Name: Romeo Coe Service: PARK INTERPRETIVE RANGER / PA Responsible Attending: Wale Mckeon MD Reason for continued hospitalization: Evaluation and management of unstable angina Awaiting [facility] today Active Problems: Active Hospital Problems Diagnosis ??? ACS (acute coronary syndrome) Resolved Hospital Problems No resolved problems to display. Interval History: Admitted overnight in the setting of unstable angina. Troponins negative. TTE with preserved EF at 63% and no WMA. Awaiting [facility] today. Review of Systems: Review of Systems [...] 0150 CALCIUM 8.5 MAGNESIUM 0.81 Recent Labs 03/14/198 TROPONINT <0.01 Pertinent Radiographic/Diagnostic Results: TTE 03/14/19 [...] Full code Discussed with MD Siri Brar, STAGE DIRECTOR Pager [phone] 03/14/2019 Attending Creative Developer Addendum: This patient was seen in conjunction [...] regimen today (include vasodilator) Wale Mckeon MD, [facility], [facility] Staff Creative Developer pager [phone] documented in this encounter H&P Notes * [...] TIA and GERD who was transferred from [facility] with a diagnosis of UAP. He presented [...] EMS was called. His last admission to [facility] was in Aug 2017 when he presented [...] started on Heparin gtt and transferred to [facility] for cardiac cath. Past Medical History: Past [...] of Onset ??? Myocardial Infarction Father 46 [place], CABG ??? Heart Disease Father ??? Diabetes [...] file Gets together: Not on file Attends jainism service: Not on file Active member of [...] Lives with and daughter at home in [place], [place]. He is disabled now. He used [...] edema . Pulses palpable, no calf tenderness Neuro/REGISTERED DENTAL ASSISTANT: AAO x 3, No evident deficits Skin/Integumentary: [...] multiple PCIs since 2011. Last Cath at [facility] in Aug 2017 that showed the patency [...] with good effect. Right radial cath site RAHEEL, +pulses, no hematoma present. Pt able to [...] EVALUATION NOTE: OUTCOME SUMMARY: Patient to label remover today. No interventions. Right radial cath site [...] TIA and GERD who was transferred from [facility] with a diagnosis of UAP Past Medical History: Diagnosis Date ??? Allergy ??? CAD (coronary artery disease), non-obstructive 05/31/2012 ??? Depression ??? DM (diabetes mellitus) 05/31/2012 ??? Dyslipidemia 05/31/2012 ??? GERD (gastroesophageal reflux disease) 05/31/2012 ??? HTN (hypertension) 05/31/2012 ??? Hx-TIA (transient ischemic attack) 06/03/2012 ??? Smoker 05/31/2012 Hospitalizations Within the Past 30 Days: no [facility] admits in last 30 days. Anticipated Length Of Stay (If known): 1-3 days Current Decision-Making Capacity: Patient is A&Ox4 and able to make all medical decisions Advance Care Planning: Full Code Not in EPIC.This author discussed ADs with patient and offered advance directive booklet and forms,patient deferred will discuss with family at a later time. [place] and [place] of guardianship explained. If AD's have not been completed then Spouse Dasia would be surrogate decision maker per [place] decision making law. Current Coping/Education/Information Needs: Current coping questions and concerns have been addressed. Current Functional Ability: assist of staff Functional Status Prior to Admission: independent with ADLs, driving, no DME used at baseline. Home Environment: lives in 2 level house, bedroom downstairs, no stairs to enter from outside. [address] [facility] [address] Social & Family Supports/Community Resources: lives with spouse and daughter Extended Emergency Contact Information Primary Emergency Contact: Dasia Coe Address: [address] [place] [address] [facility] Mobile Relation: Spouse Health/Prescription Coverage: Primary Insurance: MEDICARE Secondary Insurance: N/A Prescription Coverage: Yes Preferred Pharmacy: [id number] - [place] [id number] [facility] [address] [place] [id number] Other: none Primary Care Provider: Coni Lim MD [phone] Patient/Caregiver Goals of Treatment: return to previous [...] of care planning. Rashmi Simmons, VERO Nurse Project Control Officer Pager [phone] * Op Note - Lexus Gutiérrez MD - 03/14/2019 10:54 AM EDT [facility] Operative Note Patient Name: Romeo Coe : [id number] MR#: [id number] Case Date: 03/14/2019 Surgeon: Surgeon(s) and Role: * Lexus Gutiérrez MD - Primary * Satnam Leger MD - Fellow Preoperative diagnosis: ?CAD Postoperative diagnosis: No new obstructive lesions from prior cath Procedure(s) (LRB): CARDIAC CATHETERIZATION (N/A) CORONARY ANGIOGRAPHY; W [facility],POSSIBLE PCI (N/A) Access: Radial provided good support for procedure. 6 Fr RRA with TR band in place, good hemostasis. The patient tolerated the procedures smoothly and was transferred from the cardiac catheterization lab to the next level of care in stable condition, without pain. No evident early complications. Results discussed with service curriculum counselor Dr Mckeon, and with the patient. He did not have family that he preferred we call. He needs to be connected with a referring curriculum counselor locally (seen at [facility]). A time-out was conducted prior to the [...] Dean had a good night. Arrived from [facility] hospital on Heparin drip. Denied chest pain [...] further details. Ed Simpson MD 03/14/2019 Pager [phone] documented in this encounter Plan of Treatment [...] 5:01 AM EDT DIFFERENTIAL, AUTOMATED Routine 03/15/20 19 5:01 AM EDT CBC (WITH DIFF) Routine [...] please contact the number below. ? Narrative 03/16/2019 1:06 PM EDT EXAMINATION: CTA [...] Skeletal structures: No significant findings. Procedure Note Aidthya Hutchison MD - 03/16/2019 EXAMINATION: CTA CHEST [...] this report, please contact the number below. Esperanza Collier STAGE DIRECTOR IMG CT ORDERABLES * POCT Glucose (03/16/2019 11:34 AM EDT) Glucose, POC 106 65 - 199 mg/dL [facility] Comment: Supplemental ranges: <140 mg/dL before meals <180 mg/dL all other times of the day Blood specimen (specimen) 03/16/2019 11:34 AM EDT 03/16/2019 11:34 AM EDT Wale Mckeon MD POINT OF CARE TEST O RDERABLES Performing Organization Address City/[facility]/ZIP Co de Phone Number [facility] [place] [address] * POCT Glucose (03/16/2019 7:38 AM EDT) Glucose, POC 102 65 - 199 mg/dL [facility] Comment: Supplemental ranges: <140 mg/dL before meals <180 mg/dL all other times of the day Blood specimen (specimen) 03/16/2019 7:38 AM EDT 03/16/2019 7:38 AM EDT Wale Mckeon MD POINT OF CARE TEST O RDERABLES Performing Organization Address [facility] Co de Phone Number [facility] [place] [address] * EKG 12 Lead (03/16/2019 7:07 AM EDT) Ventricular rate 59 BPM MUSE SYSTEM Atrial Rate 59 BPM MUSE SYSTEM P-R Interval 148 ms MUSE SYSTEM QRS Duration 88 ms MUSE SYSTEM Q-T Interval 408 ms MUSE SYSTEM QTC Calculated (Bezet) 403 ms MUSE SYSTEM Calculated P [place] 7 degrees MUSE SYSTEM Calculated R [place] 23 degrees MUSE SYSTEM Calculated T [place] 40 degrees MUSE SYSTEM INTERPRETATION Sinus bradycardia Otherwise normal ECG When compared with ECG of 15-MAR-2019 20:23, No significant change was found Confirmed by MD SOUMYA, JENNIFER ([id number]) on 03/16/2019 8:30:39 AM MUSE SYSTEM 03/16/2019 7:07 AM EDT 03/16/2019 8:30 AM EDT Siri Bush APRN ECG ORDERABLES Performing Organization Address City/[facility] Co de Phone Number MUSE SYSTEM * Differential, Automated (03/16/2019 5:07 AM EDT) Neutrophil % 48.9 % [facility] Neutrophil Absolute 3.25 1.70 - 6.10 x10(3)/mcL [facility] Lymph % 38.1 % [facility] Lymphocytes Abs 2.5 0.9 - 3.2 x10(3)/[facility] Monocyte % 8.0 % [facility] Monocyte Abs 0.5 0.3 - 0.9 x10(3)/[facility] Eos % 4.2 % [facility] Eosinophils Abs 0.3 0.0 - 0.4 x10(3)/[facility] Basophil % 0.5 % [facility] Baso Absolute 0.0 0.0 - 0.1 x10(3)/[facility] Immature Gran % 0.30 % [facility] Comment: Immature granulocytes(IG's)percentage and absolute count will include metamyelocytes, myelocytes, and promyelocytes. Blood smears from CBCs yielding IG's will be scanned manually for concordance. If this scan disagrees with the automated IG or if promyelocytes are noted, a manual differential will be performed. Immature Gran Absolute 0.02 0.00 - 0.04 x10(3)/[facility] Blood specimen (specimen) 03/16/2019 5:07 AM EDT 03/16/2019 5:24 AM EDT Narrative Resulting Agency Comment Spec In Lab Siri Bush APRN HEMATOLOGY ORDERAB LES [facility] [place] [address] * Hemogram (03/16/2019 5:07 AM EDT) White Blood Cell 6.6 4.0 - 9.5 x10(3)/[facility] Red Blood Cell 5.33 4.58 - 5.54 x10(6)/[facility] Hemoglobin 15.6 13.7 - 16.5 gm/dL [facility] Hematocrit 45.4 40.5 - 48.5 % [facility] Mean Cell Volume 85.2 82.9 - 93.1 fL [facility] Mean Cell Hemoglobin 29.3 27.5 - 32.1 pg [facility] Mean Cell Hemoglobin Concentration 34.4 32.0 - 35.7 gm/dL [facility] Platelet 154 145 - 357 x10(3)/[facility] RDW Standard Deviation 38.3 36.0 - 45.0 [facility] RDW coefficient of variation 12.5 11.4 - 13.8 % [facility] Mean Platelet Volume 10.9 7.6 - 12.9 [facility] NRBC% auto 0.0 % [facility] NRBC Absolute 0.000 0.000 - 0.000 x10(3)/[facility] Blood specimen (specimen) 03/16/2019 5:07 AM EDT 03/16/2019 5:24 AM EDT Narrative Resulting Agency Comment Spec In Lab Siri Bush APRN HEMATOLOGY ORDERAB LES [facility] [place] [address] * (ABNORMAL) BMP w/fasting Glucose (03/16/2019 5:07 AM EDT) Glucose Fasting 119(H) 65 - 99 mg/dL [facility] Comment: ?Fasting* Glucose Interpretive [...] of Diabetes Mellitus, Position Statement from the [place] [employer]. ??Diabetes Care, Volume 33, Supplement 1, Aug 2009 Blood Urea Nitrogen 10 10 - 20 mg/dL [facility] Creatinine 0.91 0.80 - 1.50 mg/dL [facility] Sodium 138 135 - 145 mmol/L [facility] Potassium 3.6 3.5 - 5.0 mmol/L [facility] Comment: Please note: ??Patients with WBC >100,000 may have falsely elevated Potassium levels. ??For accurate Potassium quantification in these patients send serum separator tube (gold top) for subsequent determinations. ??Contact the Clinical Chemistry Laboratory if there are any questions. Chloride 106 98 - 107 mmol/L [facility] Carbon Dioxide 20(L) 22 - 31 mmol/L [facility] Anion Gap 12 5 - 15 mmol/L [facility] Calcium 9.2 8.5 - 10.5 mg/dL [facility] Est Glomerular Filtration Rate 97 >=60 mL/min/1. 73 m?? [facility] Comment: The eGFR was calculated using the CKD-EPI equation. As with all creatinine based estimates of kidney function, eGFR values calculated with the CKD-EPI equation are not accurate in patients with acute kidney failure, extremes of body mass or the acutely ill. http://[employer]/DHnkf eGFR 113 >=60 mL/min/1. 73 m?? [facility] Comment: The eGFR was calculated using the CKD-EPI equation. As with all creatinine based estimates of kidney function, eGFR values calculated with the CKD-EPI equation are not accurate in patients with acute kidney failure, extremes of body mass or the acutely ill. http://[employer]/DHMCnkf Blood specimen (specimen) 03/16/2019 5:07 AM EDT 03/16/2019 5:24 AM EDT Narrative Resulting Agency Comment Spec In Lab Siri Bush APRN CHEMISTRY ORDERABL ES [facility] [place] [address] * EKG 12 Lead (03/15/2019 8:23 PM EDT) Ventricular rate 65 BPM MUSE SYSTEM Atrial Rate 65 BPM MUSE SYSTEM P-R Interval 140 ms MUSE SYSTEM QRS Duration 86 ms MUSE SYSTEM Q-T Interval 384 ms MUSE SYSTEM QTC Calculated (Bezet) 399 ms MUSE SYSTEM Calculated P [place] 16 degrees MUSE SYSTEM Calculated R [place] 39 degrees MUSE SYSTEM Calculated T [place] 37 degrees MUSE SYSTEM INTERPRETATION Normal sinus rhythm Normal ECG When compared with ECG of 15-MAR-2019 10:49, No significant change was found Confirmed by MD SOUMYA, JENNIFER ([id number]) on 03/16/2019 12:17:34 AM MUSE SYSTEM 03/15/2019 8:23 PM EDT 03/16/2019 12:17 AM EDT Wale Mckeon MD ECG ORDERABLES Performing Organization Address [facility]/ZIP Co de Phone Number MUSE SYSTEM * POCT Glucose (03/15/2019 8:13 PM EDT) Glucose, POC 134 65 - 199 mg/dL [facility] Comment: Supplemental ranges: <140 mg/dL before meals <180 mg/dL all other times of the day Blood specimen (specimen) 03/15/2019 8:13 PM EDT 03/15/2019 8:13 PM EDT Wale Mckeon MD POINT OF CARE TEST O RDERABLES [facility] [place] [address] * POCT Glucose (03/15/2019 4:58 PM EDT) Glucose, POC 109 65 - 199 mg/dL [facility] Comment: Supplemental ranges: <140 mg/dL before meals <180 mg/dL all other times of the day Blood specimen (specimen) 03/15/2019 4:58 PM EDT 03/15/2019 4:58 PM EDT Wale Mckeon MD POINT OF CARE TEST O RDEFE Performing Organization Address City/[facility]/ZIP Co de Phone Number [facility] [place] [address] * POCT Glucose (03/15/2019 11:47 AM EDT) Pathologist [facility] Glucose, POC 110 65 - 199 mg/dL [facility] Comment: Supplemental ranges: <140 mg/dL before meals <180 mg/dL all other times of the day Blood specimen (specimen) 03/15/2019 11:47 AM EDT 03/15/2019 11:47 AM EDT Wale Mckeon MD POINT OF CARE TEST O EVITA Performing Organization Address [facility] Co de Phone Number [facility] [place] [address] * Troponin (03/15/2019 11:17 AM EDT) [facility] Troponin-T <0.01 0.00 - 0.00 ng/mL [facility] Comment: The 99th percentile for Troponin T is less than 0.01 ng/mL, any detectable cTnT concentration using this assay should be considered elevated. According to the third universal definition of myocardial infarction the following criteria with a clinical presentation consistent with acute myocardial ischemia meets the diagnosis for a myocardial infarction (MT). Detection of a rise and/or fall of cTnT, with at least one value greater than the 99th percentile (> or = 0.01) and with at least one of the following ?? Symptoms of ischemia ?? New or presumed new significant KD-ulawxyk-Q wave (ST-T) changes or new left bundle [...] additional sample may be indicated. Reference: Third [place] Definition of Myocardial Infarction. Journal of the [place] College of [employer] 2012;60:1581-98 Blood specimen (specimen) 03/15/2019 11:17 AM EDT 03/15/2019 11:42 AM EDT Narrative Resulting Agency Comment Spec In Lab Esperanza Collier KRYSTINA CHEMISTRY ORDERABLES Performing Organization Address [facility] Co de Phone Number [facility] [place] [address] * EKG 12 Lead (03/15/2019 10:49 AM EDT) Ventricular rate 59 BPM MUSE SYSTEM Atrial Rate 59 BPM MUSE SYSTEM P-R Interval 140 ms MUSE SYSTEM QRS Duration 86 ms MUSE SYSTEM Q-T Interval 398 ms MUSE SYSTEM QTC Calculated (Bezet) 394 ms MUSE SYSTEM Calculated P [place] 13 degrees MUSE SYSTEM Calculated R [place] 42 degrees MUSE SYSTEM Calculated T [place] 49 degrees MUSE SYSTEM INTERPRETATION Sinus bradycardia Otherwise normal ECG When compared with ECG of 15-MAR-2019 07:08, No significant change was found Confirmed by MD Buchanan Timothy ([id number]) on 03/15/2019 12:09:31 PM MUSE SYSTEM 03/15/2019 10:4 9 AM EDT 03/15/2019 12:09 PM EDT Esperanza Cohen Amira FLAHERTY ECG ORDERABLES Performing Organization Address [facility] de Phone Number MUSE SYSTEM * POCT Glucose (03/15/2019 7:57 AM EDT) Glucose, POC 114 65 - 199 mg/dL [facility] Comment: Supplemental ranges: <140 mg/dL before meals <180 mg/dL all other times of the day Blood specimen (specimen) 03/15/2019 7:57 AM EDT 03/15/2019 7:57 AM EDT Wale Mckeon MD POINT OF CARE TEST O RDERABLES Performing Organization Address [facility] Co de Phone Number [facility] [place] [address] * EKG 12 Lead (03/15/2019 7:08 AM EDT) Ventricular rate 58 BPM MUSE SYSTEM Atrial Rate 58 BPM MUSE SYSTEM P-R Interval 140 ms MUSE SYSTEM QRS Duration 90 ms MUSE SYSTEM Q-T Interval 410 ms MUSE SYSTEM QTC Calculated (Bezet) 402 ms MUSE SYSTEM Calculated P [place] 5 degrees MUSE SYSTEM Calculated R [place] 24 degrees MUSE SYSTEM Calculated T [place] 34 degrees MUSE SYSTEM INTERPRETATION Sinus bradycardia Otherwise normal ECG When compared with ECG of 14-MAR-2019 19:41, No significant change was found Confirmed by MD SOUMYA, JENNIFER ([id number]) on 03/15/2019 9:53:01 AM MUSE SYSTEM 03/15/2019 7:08 AM EDT 03/15/2019 9:53 AM EDT Siri Panchal Sandgap KRYSTINA ECG ORDERABLES MUSE SYSTEM * Differential, Automated (03/15/2019 5:01 AM EDT) Pathologist [facility] Neutrophil % 46.9 % [facility] Neutrophil Absolute 2.78 1.70 - 6.10 x10(3)/[facility] Lymph % 40.6 % [facility] Lymphocytes Abs 2.4 0.9 - 3.2 x10(3)/[facility] Monocyte % 7.7 % [facility] Monocyte Abs 0.5 0.3 - 0.9 x10(3)/[facility] Eos % 3.7 % [facility] Eosinophils Abs 0.2 0.0 - 0.4 x10(3)/[facility] Basophil % 0.8 % [facility] Baso Absolute 0.0 0.0 - 0.1 x10(3)/[facility] Immature Gran % 0.30 % [facility] Comment: Immature granulocytes(IG's)percentage and absolute count will include metamyelocytes, myelocytes, and promyelocytes. Blood smears from CBCs yielding IG's will be scanned manually for concordance. If this scan disagrees with the automated IG or if promyelocytes are noted, a manual differential will be performed. Immature Gran Absolute 0.02 0.00 - 0.04 x10(3)/[facility] Blood specimen (specimen) 03/15/2019 5:01 AM EDT 03/15/2019 5:12 AM EDT Narrative Resulting Agency Comment Spec In Lab Siri Bush STAGE DIRECTOR HEMATOLOGY ORDERAB LES [facility] [place] [address] * Hemogram (03/15/2019 5:01 AM EDT) White Blood Cell 5.9 4.0 - 9.5 x10(3)/[facility] Red Blood Cell 4.95 4.58 - 5.54 x10(6)/[facility] Hemoglobin 14.6 13.7 - 16.5 gm/dL [facility] Hematocrit 43.1 40.5 - 48.5 % [facility] Mean Cell Volume 87.1 82.9 - 93.1 fL [facility] Mean Cell Hemoglobin 29.5 27.5 - 32.1 pg [facility] Mean Cell Hemoglobin Concentration 33.9 32.0 - 35.7 gm/dL [facility] Platelet 156 145 - 357 x10(3)/[facility] RDW Standard Deviation 40.2 36.0 - 45.0 [facility] LAB[facility]ATORY RDW coefficient of variation 12.5 11.4 - 13.8 % [facility] Mean Platelet Volume 10.4 7.6 - 12.9 [facility] LAB[facility]ATORY NRBC% auto 0.0 % [facility] NRBC Absolute 0.000 0.000 - 0.000 x10(3)/[facility] Blood specimen (specimen) 03/15/2019 5:01 AM EDT 03/15/2019 5:12 AM EDT Narrative Resulting Agency Comment Spec In Lab Siri Bush STAGE DIRECTOR HEMATOLOGY ORDERAB LES [facility] [place] [address] * (ABNORMAL) BMP w/fasting Glucose (03/15/2019 5:01 AM EDT) Glucose Fasting 120(H) 65 - 99 mg/dL [facility] Comment: ?Fasting* Glucose Interpretive [...] of Diabetes Mellitus, Position Statement from the [place] [employer]. ??Diabetes Care, Volume 33, Supplement 1, Aug 2009 Blood Urea Nitrogen 11 10 - 20 mg/dL [facility] Creatinine 0.90 0.80 - 1.50 mg/dL [facility] Sodium 142 135 - 145 mmol/L [facility] Potassium 3.8 3.5 - 5.0 mmol/L [facility] Comment: Please note: ??Patients with WBC >100,000 may have falsely elevated Potassium levels. ??For accurate Potassium quantification in these patients send serum separator tube (gold top) for subsequent determinations. ??Contact the Clinical Chemistry Laboratory if there are any questions. Chloride 109(H) 98 - 107 mmol/L [facility] Carbon Dioxide 23 22 - 31 mmol/L [facility] Anion Gap 10 5 - 15 mmol/L [facility] Calcium 9.1 8.5 - 10.5 mg/dL [facility] Est Glomerular Filtration Rate 99 >=60 mL/min/1. 73 m?? [facility] Comment: The eGFR was calculated using the CKD-EPI equation. As with all creatinine based estimates of kidney function, eGFR values calculated with the CKD-EPI equation are not accurate in patients with acute kidney failure, extremes of body mass or the acutely ill. http://[employer]/[facility] STIL[facility]LLnkf eGFR 114 >=60 mL/min/1. 73 m?? [facility] Comment: The eGFR was calculated using the CKD-EPI equation. As with all creatinine based estimates of kidney function, eGFR values calculated with the CKD-EPI equation are not accurate in patients with acute kidney failure, extremes of body mass or the acutely ill. http://[employer]/[facility]LLnkf Blood specimen (specimen) 03/15/2019 5:01 AM EDT 03/15/2019 5:12 AM EDT Narrative Resulting Agency Comment Spec In Lab Siri Bush APRN CHEMISTRY ORDERABL ES [facility] [place] [address] * (ABNORMAL) Hemoglobin A1c (03/15/2019 5:01 AM EDT) Hemoglobin A1c 6.8(H) 4.3 - 5.6 % [facility] Comment: Reference Range: 4.3 - 5.6% [...] Mellitus, Diabetes Care 2013; 36: Suppl. 1, F07-58 Estimated Average Glucose 148 mg/dL [facility] Comment: eAG equivalents for HbA1c percentages: [...] into estimated average glucose values. ??Diabetes Care 2008:31(8):3793-9330. Blood specimen (specimen) 03/15/2019 5:01 AM EDT 03/15/2019 5:12 AM EDT Narrative Resulting Agency Comment Spec In Lab Siri Bush APRN CHEMISTRY ORDERABL ES [facility] [place] [address] * Lipid Panel (03/15/2019 5:01 AM EDT) Cholesterol, Total 207 mg/dL [facility] Comment: Lower Risk: <200 mg/dL Average Risk: 200-239 mg/dL Higher Risk: >ex=982 mg/dL Triglyceride 256 mg/dL [facility] Comment: Average Risk/Lower Risk: <150 mg/dL Borderline High Risk: 150-199 mg/dL High Risk: 200-499 mg/dL Very High Risk: >np=406 mg/dL HDL Cholesterol 28 mg/dL [facility] Comment: Males: ?? Higher Risk: <40 mg/dL Females: ?? HIgher Risk: <50 mg/dL LDL Cholesterol 128 mg/dL [facility] Comment: Lowest Risk: <100 mg/dL Lower Risk: 100-129 mg/dL Borderline High Risk: 130-159 mg/dL High Risk: 160-189 mg/dL Very High Risk: >iv=052 mg/dL Cholesterol/HDL Ratio 7.4 ratio [facility] Lipid Interpretation See Note [facility] Comment: Lipid management should be guided by a patient? s ASCVD risk, goals and preferences. ACC/AHA Guidelines recommend high intensity statin if clinical ASCVD or LDL greater than or equal to 190 mg/dL. http://[employer]/RUV-NGA-Efqnggref Adults aged 40-75 with LDL 70-189 mg/dL should have their 10 year ASCVD risk estimated with the ACC/AHA ASCVD risk kettle operator http://tools.acc.org/OXQLV-Rnsm-Xmidhfubu/ Statin should be discussed if risk greater [...] Lab Siri Bush APRN CHEMISTRY ORDERABL ES [facility] [place] [address] * POCT Glucose (03/14/2019 7:50 PM EDT) Glucose, POC 123 65 - 199 mg/dL [facility] Comment: Supplemental ranges: <140 mg/dL before meals <180 mg/dL all other times of the day Blood specimen (specimen) 03/14/2019 7:50 PM EDT 03/14/2019 7:50 PM EDT Wale Mckeon MD POINT OF CARE TEST O RDERABLES Performing Organization Address [facility] Co de Phone Number [facility] [place] [address] * EKG 12 Lead (03/14/2019 7:41 PM EDT) [facility] Ventricular rate 59 BPM MUSE SYSTEM Atrial Rate 59 BPM MUSE SYSTEM P-R Interval 142 ms MUSE SYSTEM QRS Duration 80 ms MUSE SYSTEM Q-T Interval 396 ms MUSE SYSTEM QTC Calculated (Bezet) 392 ms MUSE SYSTEM Calculated P [place] 40 degrees MUSE SYSTEM Calculated R [place] 37 degrees MUSE SYSTEM Calculated T [place] 46 degrees MUSE SYSTEM INTERPRETATION Sinus bradycardia Otherwise normal ECG When compared with ECG of 14-MAR-2019 01:06, No significant change was found Confirmed by MD SOUMYA, JENNIFER ([id number]) on 03/15/2019 9:52:58 AM MUSE SYSTEM 03/14/2019 7:41 PM EDT 03/15/2019 9:52 AM EDT Wale Mckeon MD ECG ORDERABLES Performing Organization Address [facility] de Phone Number MUSE SYSTEM * POCT Glucose (03/14/2019 4:21 PM EDT) [facility] Glucose, POC 128 65 - 199 mg/dL [facility] Comment: Supplemental ranges: <140 mg/dL before meals <180 mg/dL all other times of the day Blood specimen (specimen) 03/14/2019 4:21 PM EDT 03/14/2019 4:21 PM EDT Wale Mckeon MD POINT OF CARE TEST O RDERABLES Performing Organization Address [facility] Co de Phone Number [facility] [place] [address] * Troponin (03/14/2019 3:10 PM EDT) [facility] Troponin-T <0.01 0.00 - 0.00 ng/mL [facility] Comment: The 99th percentile for Troponin T is less than 0.01 ng/mL, any detectable cTnT concentration using this assay should be considered elevated. According to the third universal definition of myocardial infarction the following criteria with a clinical presentation consistent with acute myocardial ischemia meets the diagnosis for a myocardial infarction (MT). Detection of a rise and/or fall of cTnT, with at least one value greater than the 99th percentile (> or = 0.01) and with at least one of the following ?? Symptoms of ischemia ?? New or presumed new significant JC-daemnaq-Q wave (ST-T) changes or new left bundle [...] additional sample may be indicated. Reference: [place] Definition of Myocardial Infarction. Journal of the [place] College of [employer] 2012;60:1581-98 Blood specimen (specimen) 03/14/2019 3:10 PM EDT 03/14/2019 3:19 PM EDT Narrative Resulting Agency Comment Spec In Lab Wale Mckeon MD CHEMISTRY ORDERABLES Performing Organization Address City/State/[facility] Co de Phone Number [facility] [place] [address] * XR Chest PA or AP 1 [...] * POCT Glucose (03/14/2019 11:41 AM EDT) [facility] Signature Glucose, POC 96 65 - 199 mg/dL [facility] Comment: Supplemental ranges: <140 mg/dL before meals <180 mg/dL all other times of the day Blood specimen (specimen) 03/14/2019 11:41 AM EDT 03/14/2019 11:41 AM EDT Wale Mckeon MD POINT OF CARE TEST O RDERABLES [facility] [place] [address] * CARDIAC CATHETERIZATION (03/14/2019 10:55 AM EDT) Anatomical Region Laterality Modality Other Narrative 03/15/2019 4:29 PM EDT ?[facility] ? Cardiac Catheterization/Intervention Report ? Patient Name: Coe, Romeo A. ? Procedure Date: 03/14/2019 ? A #: [id number] ? Primary Physician: Lexus Gutiérrez ? Case #: [id number] ? File Name: [id number] ? Catheterization Order Number: [id number] ? [facility] ? Final Report [place], [place] ? Patient Name: ? Romeo Coe ? ID#: ?[id number] ? : ?1965 ? Procedure Date: ? [...] was Urgent. The indication for ?the label remover visit is ACS less than or equal [...] Procedure Note Lexus Gutiérrez MD - 08/13/2019 [facility] Cardiac Catheterization/Intervention Report Patient Name: Romeo Coe Procedure Date: 03/14/2019 A #: [id number] Primary Physician: Lexus Gutiérrez Case #: File Name: [id number] Catheterization Order Number: [id number] [facility] FinalReport [place], [place] Patient Name: Romeo Coe ID#:[id number] :1965 Procedure Date: March 14, 2019 Case [...] patient was designated as ASAClass III. The [facility] clinical frailty scale is 2: Well. Diagnostic Tests: Prior Coronary Angiography: Prior coronary angiography was performed on 09/13/2017 andshowed non-obstructive CAD. LV ejection fraction within 6 months is63%. Electrocardiography: EKG was assessed by ECG. EKG was Normal. Medications Prior to Procedure: ASA, Beta Agatha and Statin. Indications for Diagnostic Cath: The priority of the diagnostic procedure was Urgent. The indicationfor the label remover visit is ACS less than or equal [...] EDT) Troponin-T <0.01 0.00 - 0.00 ng/mL [facility] Comment: The 99th percentile for Troponin T is less than 0.01 ng/mL, any detectable cTnT concentration using this assay should be considered elevated. According to the third universal definition of myocardial infarction the following criteria with a clinical presentation consistent with acute myocardial ischemia meets the diagnosis for a myocardial infarction (MT). Detection of a rise and/or fall of cTnT, with at least one value greater than the 99th percentile (> or = 0.01) and with at least one of the following ?? Symptoms of ischemia ?? New or presumed new significant EX-ypybzcq-P wave (ST-T) changes or new left bundle [...] additional sample may be indicated. Reference: [place] Definition of Myocardial Infarction. Journal of the [place] [employer]iology 2012;60:1581-98 Blood specimen (specimen) 03/14/2019 8:53 AM EDT 03/14/2019 9:06 AM EDT Narrative Resulting Agency Comment Spec In Lab Wale Mkceon MD CHEMISTRY ORDERABLES [facility] [place] [address] * (ABNORMAL) Differential, Automated (03/14/2019 8:53 AM EDT) Neutrophil % 33.7 % [facility] Neutrophil Absolute 2.11 1.70 - 6.10 x10(3)/ L [facility] Lymph % 52.4 % [facility] Lymphocytes Abs 3.3(H) 0.9 - 3.2 x10(3)/[facility] LABORATORY Monocyte % 7.6 % [facility] Monocyte Abs 0.5 0.3 - 0.9 x10(3)/ L [facility] Eos % 4.9 % [facility] Eosinophils Abs 0.3 0.0 - 0.4 x10(3)/[facility] LABORATORY Basophil % 1.1 % [facility] Baso Absolute 0.1 0.0 - 0.1 x10(3)/ L [facility] Immature Gran % 0.30 % [facility] Comment: Immature granulocytes(IG's)percentage and absolute count will include metamyelocytes, myelocytes, and promyelocytes. Blood smears from CBCs yielding IG's will be scanned manually for concordance. If this scan disagrees with the automated IG or if promyelocytes are noted, a manual differential will be performed. Immature Gran Absolute 0.02 0.00 - 0.04 x10(3)/mc L [facility] Blood specimen (specimen) 03/14/2019 8:53 AM EDT 03/14/2019 9:06 AM EDT Narrative Resulting Agency Comment Spec In Lab Ed Simpson MD HEMATOLOGY ORDERABLE S [facility] [place] [address] * Hemogram (03/14/2019 8:53 AM EDT) White Blood Cell 6.3 4.0 - 9.5 x10(3)/[facility] LAB[facility] Red Blood Cell 5.11 4.58 - 5.54 x10(6)/[facility] Hemoglobin 14.9 13.7 - 16.5 gm/dL [facility] Hematocrit 44.2 40.5 - 48.5 % [facility] Mean Cell Volume 86.5 82.9 - 93.1 fL [facility] Mean Cell Hemoglobin 29.2 27.5 - 32.1 pg [facility] Mean Cell Hemoglobin Concentration 33.7 32.0 - 35.7 gm/dL [facility] Platelet 156 145 - 357 x10(3)/[facility] LAB[facility] RDW Standard Deviation 40.3 36.0 - 45.0 [facility]ORY RDW coefficient of variation 12.6 11.4 - 13.8 % [facility] Mean Platelet Volume 10.7 7.6 - 12.9 [facility] NRBC% auto 0.0 % [facility] NRBC Absolute 0.000 0.000 - 0.000 x10(3)/[facility] Blood specimen (specimen) 03/14/2019 8:53 AM EDT 03/14/2019 9:06 AM EDT Narrative Resulting Agency Comment Spec In Lab Ed Simpson MD HEMATOLOGY ORDERABLE S [facility] [place] [address] * Heparin (unfractionated) Level (03/14/2019 8:53 AM EDT) Pathologist [facility] UF Heparin 0.37 IU/mL [facility] Comment: Guidelines for therapeutic [...] MD HEMATOLOGY ORDERABLE S Performing Organization Address [facility]/State/[facility] Co de Phone Number [facility] [place] [address] * ECHO COMPLETE (03/14/2019 8:37 AM EDT) [facility] EF 63 HEARTLAB SYSTEM Anatomical Region Laterality Modality Other 03/14/2019 Narrative 03/14/2019 8:45 AM EDT Procedure: ?Transthoracic Echocardiogram Patient: ?LAQUITA DOHERTY Kiesha ? (Age): 1965(53y) Med Rec#: ? [id number] ?Sex: ?M ? Site Loc: ? [facility] ?Ht / Wt: ??177(cm)/101(kg) Pt. Loc: ?Adult Floor ? BSA: ?2.18 Study Date: ?? 03/14/2019 ?Pt. Type: Inpatient Tape: ? Referring: Ed Simpson Reading: Christos Buchanan ([id number]) Manager Of Corporate: Yessi Webb [facility] Diagnosis: *Unstable angina (I20.0) BP: ? 104/58 [...] E-wave Vmax ?0.6 ?m/sec ? MV deceleration [id number] ?msec ? MV A-wave Vmax ?0.4 ?m/sec [...] ? Mid-Inferior ?Normal ? Mid-Inferoseptal ?Normal ? [place]-Septal ? Normal ? [place]-Anterior ? Normal ? [place]-Lateral ?Normal ? [place]-Inferior ? Normal ? [place]-Tip ?Normal ? This report has been electronically signed by: Christos Buchanan M.D. ? 03/14/2019 08:45:08 Images reviewed and interpretation verified [facility] Procedure Note Christos Buchanan MD - 03/14/2019 Procedure: Transthoracic Echocardiogram Patient: LAQUITA Pop DOB(Age): 1965(53y) Med Rec#: [id number] Sex: M Site Loc: [facility] Ht / Wt: 177(cm)/101(kg) Pt. Loc: Adult Floor BSA: 2.18 Study Date: 03/14/2019 Pt. Type: Inpatient Tape: Referring: Ed Simpson Reading: Christos Buchanan ([id number]) Manager Of Corporate: Yessi Webb [facility] Diagnosis: *Unstable angina (I20.0) BP: 104/58 SUMMARY: [...] MV E-wave Vmax 0.6 m/sec MV deceleration [id number] msec MV A-wave Vmax 0.4 m/sec MV [...] Normal Mid-Posterolateral Normal Mid-Inferior Normal Mid-Inferoseptal Normal [place]-Septal Normal [place]-Anterior Normal [place]-Lateral Normal [place]-Inferior Normal [place]-Tip Normal This report has been electronically signed by: Christos Buchanan M.D. 03/14/2019 08:45:08 Images reviewed and interpretation verified [facility] Ed Simpson MD ECHO ORDERABLES * POCT Glucose (03/14/2019 7:42 AM EDT) Glucose, POC 102 65 - 199 mg/dL [facility] Comment: Supplemental ranges: <140 mg/dL before meals <180 mg/dL all other times of the day Blood specimen (specimen) 03/14/2019 7:42 AM EDT 03/14/2019 7:42 AM EDT Wale Mckeon MD POINT OF CARE TEST O RDERABLES Performing Organization Address [facility] Co de Phone Number [facility] [place] [address] * (ABNORMAL) Chloride (03/14/2019 3:28 AM EDT) Chloride 108(H) 98 - 107 mmol/L [facility] Blood specimen (specimen) 03/14/2019 3:28 AM EDT 03/14/2019 3:32 AM EDT Narrative Resulting Agency Comment Spec In Lab Wale Mckeon MD CHEMISTRY ORDERABLES Performing Organization Address [facility] Co de Phone Number [facility] [place] [address] * Troponin (03/14/2019 3:28 AM EDT) Troponin-T <0.01 0.00 - 0.00 ng/mL [facility] Comment: The 99th percentile for Troponin T is less than 0.01 ng/mL, any detectable cTnT concentration using this assay should be considered elevated. According to the third universal definition of myocardial infarction the following criteria with a clinical presentation consistent with acute myocardial ischemia meets the diagnosis for a myocardial infarction (MT). Detection of a rise and/or fall of cTnT, with at least one value greater than the 99th percentile (> or = 0.01) and with at least one of the following ?? Symptoms of ischemia ?? New or presumed new significant BD-hfhnqrb-V wave (ST-T) changes or new left bundle [...] additional sample may be indicated. Reference: [place] Definition of Myocardial Infarction. Journal of the [place] [employer] 2012;60:1581-98 Blood specimen (specimen) 03/14/2019 3:28 AM EDT 03/14/2019 3:32 AM EDT Narrative Resulting Agency Comment Spec In Lab Wale Mckeon MD CHEMISTRY ORDERABLES Performing Organization Address [facility] Co de Phone Number [facility] [place] [address] * Sodium (03/14/2019 3:28 AM EDT) Sodium 140 135 - 145 mmol/L [facility] Blood specimen (specimen) 03/14/2019 3:28 AM EDT 03/14/2019 3:32 AM EDT Narrative Resulting Agency Comment Spec In Lab Wale Mckeon MD CHEMISTRY ORDERABLES Performing Organization Address [facility] Phone Number [facility] [place] [address] * Potassium (03/14/2019 3:28 AM EDT) Potassium 3.7 3.5 - 5.0 mmol/L [facility] Comment: Please note: ??Patients [...] Mckeon MD CHEMISTRY ORDERABLES Performing Organization Address [facility] Co de Phone Number [facility] [place] [address] * Heparin (unfractionated) Level (03/14/2019 2:46 AM EDT) UF Heparin 0.57 IU/mL [facility] Comment: Guidelines for therapeutic [...] MD HEMATOLOGY ORDERABLE S Performing Organization Address City/State/[facility] Co de Phone Number [facility] [place] [address] * (ABNORMAL) Differential, Automated (03/14/2019 1:50 AM EDT) Neutrophil % 38.9 % [facility] Neutrophil Absolute 3.10 1.70 - 6.10 x10(3)/mc L [facility] Lymph % 49.6 % [facility] Lymphocytes Abs 4.0(H) 0.9 - 3.2 x10(3)/mc L [facility] Monocyte % 6.3 % [facility] Monocyte Abs 0.5 0.3 - 0.9 x10(3)/mc L [facility] Eos % 4.1 % [facility] Eosinophils Abs 0.3 0.0 - 0.4 x10(3)/mc L [facility] Basophil % 0.8 % [facility] Baso Absolute 0.1 0.0 - 0.1 x10(3)/mc L [facility] Immature Gran % 0.30 % [facility] Comment: Immature granulocytes(IG's)percentage and absolute count will include metamyelocytes, myelocytes, and promyelocytes. Blood smears from CBCs yielding IG's will be scanned manually for concordance. If this scan disagrees with the automated IG or if promyelocytes are noted, a manual differential will be performed. Immature Gran Absolute 0.02 0.00 - 0.04 x10(3)/mc L [facility] Blood specimen (specimen) 03/14/2019 1:50 AM EDT 03/14/2019 2:04 AM EDT Narrative Resulting Agency Comment Spec In Lab Ed Simpson MD HEMATOLOGY ORDERABLE S Performing Organization Address City/State/[facility] Co de Phone Number [facility] [place] [address] * Hemogram (03/14/2019 1:50 AM EDT) White Blood Cell 8.0 4.0 - 9.5 x10(3)/[facility] Red Blood Cell 4.98 4.58 - 5.54 x10(6)/[facility] Hemoglobin 15.0 13.7 - 16.5 gm/dL [facility] Hematocrit 42.4 40.5 - 48.5 % [facility] Mean Cell Volume 85.1 82.9 - 93.1 fL [facility] Mean Cell Hemoglobin 30.1 27.5 - 32.1 pg [facility] Mean Cell Hemoglobin Concentration 35.4 32.0 - 35.7 gm/dL [facility] Platelet 192 145 - 357 x10(3)/[facility] RDW Standard Deviation 39.9 36.0 - 45.0 [facility] RDW coefficient of variation 12.9 11.4 - 13.8 % [facility] Mean Platelet Volume 11.7 7.6 - 12.9 fL [facility] NRBC% auto 0.0 % [facility] NRBC Absolute 0.000 0.000 - 0.000 x10(3)/mcL [facility] Blood specimen (specimen) 03/14/2019 1:50 AM EDT 03/14/2019 2:04 AM EDT Narrative Resulting Agency Comment Spec In Lab Ed Simpson MD HEMATOLOGY ORDERABLE S Performing Organization Address [facility]/ZIP Co de Phone Number [facility] [place] [address] * pro-Brain Natriuretic Peptide (03/14/2019 1:50 AM EDT) NT-proBNP 12 <=125 pg/mL [facility] [place] Blood specimen (specimen) 03/14/2019 1:50 AM EDT 03/14/2019 2:04 AM EDT Narrative Resulting Agency Comment Spec In Lab Ed Simpson MD CHEMISTRY ORDERABLES Performing Organization Address [facility] Co de Phone Number [facility] [place] [address] * Magnesium (03/14/2019 1:50 AM EDT) Pathologist [facility] Magnesium 0.81 0.69 - 1.07 mmol/L [facility] Blood specimen (specimen) 03/14/2019 1:50 AM EDT 03/14/2019 2:04 AM EDT Narrative Resulting Agency Comment Spec In Lab Ed Simpson MD CHEMISTRY ORDERABLES Performing Organization Address [facility] Co de Phone Number [facility] [place] [address] * (ABNORMAL) BMP w/fasting Glucose (03/14/2019 1:50 AM EDT) Glucose Fasting 110(H) 65 - 99 mg/dL [facility] Comment: ?Fasting* Glucose Interpretive [...] of Diabetes Mellitus, Position Statement from the [employer]. ??Diabetes Care, Volume 33, Supplement 1, Aug 2009 Blood Urea Nitrogen 10 10 - 20 mg/dL [facility] Creatinine 1.00 0.80 - 1.50 mg/dL [facility] Sodium Not Perf 135 - 145 [facility] Potassium Not Perf 3.5 - 5.0 [facility] Comment: Called by: [facility], Read back by: Keeley Arias, Date/Time:03/14/19 03:03. Please note: ??Patients with WBC >100,000 may have falsely elevated Potassium levels. ??For accurate Potassium quantification in these patients send serum separator tube (gold top) for subsequent determinations. ??Contact the Clinical Chemistry Laboratory if there are any questions. Chloride Not Perf 98 - 107 [facility] Carbon Dioxide 22 22 - 31 mmol/L [facility] Anion Gap Unable to Calculate 5 - 15 mmol/L [facility] Calcium 8.5 8.5 - 10.5 mg/dL [facility] Est Glomerular Filtration Rate 87 >=60 mL/min/1 .73 m?? [facility] Comment: The eGFR was calculated using the CKD-EPI equation. As with all creatinine based estimates of kidney function, eGFR values calculated with the CKD-EPI equation are not accurate in patients with acute kidney failure, extremes of body mass or the acutely ill. [email or web address] eGFR 101 >=60 mL/min/1 .73 m?? [facility] Comment: The eGFR was calculated using the CKD-EPI equation. As with all creatinine based estimates of kidney function, eGFR values calculated with the CKD-EPI equation are not accurate in patients with acute kidney failure, extremes of body mass or the acutely ill. [email or web address] Blood specimen (specimen) 03/14/2019 1:50 AM EDT 03/14/2019 2:04 AM EDT Narrative Resulting Agency Comment Spec In Lab Ed Simpson MD CHEMISTRY ORDERABLES Performing Organization Address [facility] Co de Phone Number [facility] [place] [address] * EKG 12 Lead (03/14/2019 1:06 AM EDT) Ventricular rate 63 BPM MUSE SYSTEM Atrial Rate 63 BPM MUSE SYSTEM P-R Interval 146 ms MUSE SYSTEM QRS Duration 84 ms MUSE SYSTEM Q-T Interval 384 ms MUSE SYSTEM QTC Calculated (Bezet) 392 ms MUSE SYSTEM Calculated P [place] 28 degrees MUSE SYSTEM Calculated R [place] 21 degrees MUSE SYSTEM Calculated T [place] 18 degrees MUSE SYSTEM INTERPRETATION Normal sinus rhythm Normal ECG When compared with ECG of 13-SEP-2017 07:49, No significant change was found Confirmed by MD NAZANIN, DEISY ([id number]) on 03/14/2019 9:49:11 AM MUSE SYSTEM 03/14/2019 1:06 AM EDT 03/14/2019 9:49 AM EDT Ed Simpson MD ECG ORDERABLES Performing Organization Address [facility] Co de Phone Number MUSE SYSTEM documented in this encounter Visit Diagnoses Not on filedocumented in this encounter Admitting Diagnoses Diagnosis ACS (acute coronary syndrome) Intermediate coronary syndrome documented in this encounter Administered Medications Inactive Administered Medications - up to 3 most recent administrations Medication Order MAR Action Action Date Dose Rate Site acetaminophen (TYLENOL) tablet 650 mg 650 mg, Oral, EVERY 4 HOURS PRN, Starting on 03/14/19 at 0219, Until Thu03/16/19 at 1756, Pain, [...] Given 03/15/2019 8:55 AM EDT 150 mg cyclobenzaprine (FLEXERIL) tablet 10 mg 10 [...] Given 03/15/2019 8:55 AM EDT 60 mg fentaNYL 50 mcg/mL multi-dose injection ONCE PRN, Starting on Thu03/14/19 at 1008, Until Thu03/14/19 at 1133, Intra-Operative (Intra-Procedure), Routine Given 03/14/2019 10:08 AM EDT 25 mcg gabapentin (NEURONTIN) capsule 300 mg 300 mg, [...] weight of tube = 37.5 grams., Routine insulin lispro (HumaLOG) VIAL injection 1-4 Units [...] so., Routine iohexol (OMNIPAQUE) 350 mg/mL solution ONCE PRN, Starting on Thu03/14/19 at 1051, Until Thu03/14/19 at 1107, Cath (Intra-Procedure), Routine Given 03/14/2019 10:51 AM EDT 60 mLs lidocaine (XYLOCAINE) 10 mg/mL (1 %) injection [...] Given 03/15/2019 11:31 PM EDT 25 mg midazolam (PF) (VERSED) multi-dose injection ONCE PRN, Starting on Thu03/14/19 at 1008, Until Thu03/14/19 at 1107, Cath (Intra-Procedure), Routine Given 03/14/2019 10:08 AM EDT 1 mg nitroGLYcerin 100 mcg/mL intracoronary dilution ONCE PRN, Starting on Thu03/14/19 at 1030, Until Thu03/14/19 at 1107, Cath (Intra-Procedure), Routine Given 03/14/2019 10:30 AM EDT 100 mcg oxyCODONE (ROXICODONE) immediate release tablet 10 mg [...] provided on this medication record., Routine topiramate (TOPAMAX) tablet 50 mg 50 mg, Oral, NIGHTLY, First dose on Thu03/14/19 at 2100, Until Discontinued, Routine Given 03/15/2019 9:36 PM EDT 50 mg Given 03/14/2019 8:20 PM EDT 50 mg verapamil (ISOPTIN) injection ONCE PRN, Starting on Thu03/14/19 at 1030, Until Thu03/14/19 at 1107, Administer over 2 Minutes, Cath (Intra-Procedure) Given 03/14/2019 10:30 AM EDT 2 mg documented in this encounter Active and [...] area)1133 (OCT Unhold - Provider: Admin Adt) 0855 (Given - Provider: Jacqueline Montes De Oca RN) 0849 (Given - Provider: Heather [...] area)1133 (OCT Unhold - Provider: Admin Adt)2100 (Given - Provider: Keeley Arias RN) 0855 (Given - Provider: Jacqueline Montes De Oca RN)2030 (Given - Provider: Beverly Chan, VERO) 0849 (Given - Provider: Heather Jenkins, VERO) clopidogrel (PLAVIX) tablet 75 mg (CANCELED) 75 mg, Oral, DAILY, First dose on Thu03/14/19 at 0900, Until Discontinued, Routine 0853 (Given - Provider: Mariela Nichols RN)1003 (OCT Hold - Provider: Admin Adt - Reason: Transfer to a Procedural area)1133 (OCT Unhold - Provider: Admin Adt) cyclobenzaprine (FLEXERIL) [...] RN)1118 (Given - Provider: Jacqueline Montes De Oca, VERO) 0617 (Given - Provider: Beverly Chan, VERO)1135 (Given - Provider: Heather Jenkins, VERO) gabapentin (NEURONTIN) capsule 600 mg(Linked Group 1) 600 mg, Oral, NIGHTLY, First dose on Thu03/14/19 at 2100, Until Discontinued, Routine 1003 (MAR Hold - Provider: Admin Adt - Reason: Transfer to a Procedural area)1133 (MAR Unhold - Provider: Admin Adt)2017 (Given - [...] not available)0730 (Not Given - Provider: Mariela Nichosl RN - Reason: Order parameters not met)1003 [...] held per Dr. Calvin Villanueva for hypotension) metoprolol tartrate (LOPRESSOR) tablet 25 [...] VERO) 0512 (Given - Provider: Beverly Chan, VERO)1135 (Given - Provider: Heather Jenkins, VERO) metoprolol tartrate (LOPRESSOR) tablet 75 mg (CANCELED) [...] Provider: Admin Adt)1805 (Given - Provider: Mariela Nichols, VERO) 0012 (Given - Provider: Keeley Arias RN)0643 (Not Given - Provider: Keeley [...] (Given - Provider: Jacqueline Montes De Oca RN)203 (Given - Provider: Beverly Chan RN) 0849 (Given - Provider: Heather Jenkins RN) rosuvastatin (CRESTOR) tablet 40 mg 40 mg, Oral, EVERY EVENING, First dose on Thu03/14/19 at 0245, Until Discontinued, Routine 0255 (Given - Provider: Keeley Arias RN)1003 (OCT Hold - Provider: Admin Adt - Reason: Transfer to a Procedural area)1133 (OCT Unhold - Provider: Admin Adt)1634 (Given - Provider: Mariela Nichols, VERO) 1747 (Given - Provider: Jacqueline Montes De Oca RN) sodium chloride 0.9 % (flush) flush 5 [...] Procedural area)1133 (MAR Unhold - Provider: Admin Adt)2100 (Not Given [...] Contraindicated)0855 (Given - Provider: Mariela Nichols RN)1003 (MAR Hold - Provider: Admin Adt - Reason: Transfer to a Procedural area)1133 (MAR Unhold - Provider: Admin Adt)2100 (Not Given - Provider: Keeley Arias RN - Reason: Contraindicated) 0900 (Given - Provider: Jacqueline Montes De Oca RN)2032 (Given - Provider: Beverly Chan RN) 0900 (Not Given - Provider: Heather Jenkins [...] given earlier)1445 (Not Given - Provider: Heather H Jenkins, RN - Reason: Contraindicated) topiramate (TOPAMAX) tablet 50 mg 50 mg, Oral, NIGHTLY, First dose on Thu03/14/19 at 2100, Until Discontinued, Routine 1003 (OCT Hold - Provider: Admin Adt - Reason: Transfer to a Procedural area)1133 (OCT Unhold - Provider: Admin Adt)2019 (Given - Provider: Keeley Arias RN) 2135 (Given - Provider: Beverly Chan RN) Continuous [...] UA) 0045 (New Bag - Provider: Keeley Arias, VERO)0959 (Stopped - Provider: Diamond Ernandez RN)1003 (OCT [...] Unit) 1111 (New Bag - Provider: Keeley Kyel RN)1130 (Stopped - Provider: Mariela Nichols RN) [...] area)1133 (OCT Unhold - Provider: Admin Adt) fentaNYL 50 [...] - Reason: Transfer to a Procedural area)1133 ([facility] Unhold - Provider: Admin Adt) glucose (GLUTOSE) [...] of tube = 37.5 grams., Routine 1003 (OCT Hold - Provider: Admin Adt - Reason: Transfer to a Procedural area)1133 ([facility] Unhold - Provider: Admin Adt) iohexol (OMNIPAQUE) [...] (Intra-Procedure), Routine 1051 (Given - Provider: Lexus Gutéirrez MD) lidocaine (XYLOCAINE) 10 mg/mL (1 %) injection 3 mg 3 mg (0.3 mL), Subcutaneous, ONCE PRN, 1 dose, Starting on Thu03/14/19 at 0047, Until Thu03/16/19 at 1756, for discomfort with PIV insertion, Routine 1003 (OCT Hold - Provider: Admin Adt - Reason: Transfer to a Procedural area)1133 ([facility] Unhold - Provider: Admin Adt) midazolam (PF) [...] last 24 to 72 hours., Routine 1003 (OCT Hold - Provider: Admin Adt - Reason: Transfer to a Procedural area)1133 ([facility] Unhold - Provider: Admin Adt) nitroGLYcerin 100 [...] Routine 0255 (Given - Provider: Keeley Arias, RN)1003 ([facility] Hold - Provider: Admin Adt - Reason: Transfer to a Procedural area)1133 ([facility] Unhold - Provider: Admin Adt)1952 (Given - [...] provided on this medication record., Routine 1003 ([facility] Hold - Provider: Admin Adt - Reason: Transfer to a Procedural area)1133 ([facility] Unhold - Provider: Admin Adt) sodium chloride 0.9 % (flush) flush 5-20 mL 5-20 mL, Intravenous, EVERY 1 MIN PRN, Starting on Thu03/14/19 at 0219, Until Thu03/16/19 at 1756, flush, Flush pertains to all indwelling lines. 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
--- OUTSIDE RECORDS SUMMARY | 2024-04-30 13:41 | XMS_ITS | Encounter Summary ---
[facility] [place] [address] Care Team Providers Care Clinic Business Manager Name Role Phone Coni Lim MD Primary Care Provider [phone] Reason for Visit * Reason Comments Chest Pain * Auth/Cert Specialty Diagnoses / Procedures Referred By Contsigifredo t Referred To Contact Diagnoses Unstable angina chest pain Referral ID Status Reason Start Date Expiration Date Visits Re quested Visits Authorized [id number] 1 1 Encounter Details Date Type Department Care Team (Late st Contact Info) Description 09/12/2017 12:10 PM EST - 09/14/2017 11:12 AM EST Emergency Intermediate [place] [address] Buster Doherty, [facility] [place] [address] Christos Buchanan MD [facility] [place] [address] Coronary artery disease, angina presence unspecified, unspecified vessel or lesion type, unspecified whether [place] or transplanted heart; Atherosclerosis of [place] coronary artery with unstable angina pectoris, unspecified whether [place] or transplanted heart Discharge Disposition: Home Social History Tobacco Use Types Packs/Day Years Used Date Smoking Tobacco: Every Day Cigarettes Smokeless Tobacco: Former Comments:declines smoking ce sation info. Starting Chantix next week. Alcohol Use Standard Drinks/Week Comments No 0 (1 standard drink = 0.6 oz pur e alcohol) in past month Sex and Gender Information Value Date Recorded Sex Assigned at Not on file Gender Identity Not on file Sexual Orientation Not on file documented as of this encounter Last Filed Vital Signs Vital Sign Reading Time Taken Comments Blood Pressure 111/70 09/14/2017 7:32 AM EST Pulse 76 09/14/2017 7:32 AM EST Temperature 36.4 ??C (97.6 ??F) 09/14/2017 7:32 AM ES T Respiratory Rate 16 09/14/2017 7:32 AM EST Oxygen Saturation 95% 09/14/2017 7:32 AM EST Inhaled Oxygen Concentration - - Weight 102.5 kg (225 lb 15.5 oz) 09/14/2017 5:56 AM EST Height 180.3 cm (5' 11) 09/12/2017 5:45 PM EST Body Mass Index 31.52 09/12/2017 5:45 PM EST documented in this encounter Discharge Summaries * Giuseppe Pierson MD - 09/14/2017 8:03 AM EST Discharge Summary Patient Name: Romeo Coe Patient Age: 52 y.o. Language: Macedonian Race: White Ethnicity: Not nor Admit date: 09/12/2017 Discharge date and time: 09/14/2017 Attending Physician: Christos Buchanan MD Discharge Physician: Giuseppe Pierson MD Follow-up Recommendations for Providers: Cardiology/Primary Care -Cardiac catheterization on 09/13/2017 showed nonobstructive disease. TTE without abnormalities. Patient was discharged on aspirin 81 mg (changed from home dose of 325 mg), and continued on home Plavix (75 mg daily) -may consider discontinuing Plavix. Given history of presyncopal symptoms, note thatisosorbide mononitrate was discontinued on discharge. Inpatient Provider Contact Information: For questions regarding this document or issues relating to this hospitalization on the Medical Service, please contact your inpatient physician through the [facility] Treatment Plant Mechanic . Issues afterhours and on weekends will be handled by the molder setter on-call. Discharge Diagnoses (Hospital Problems) and Secondary Diagnoses (Chronic Problems): Active Hospital Problems Diagnosis ??? Unstable angina Resolved Hospital Problems Diagnosis Date Resolved No resolved problems to display. Active Non-Hospital Problems Diagnosis ??? CAD (coronary artery disease) ??? Chest pain ??? Hx-TIA (transient ischemic attack) ??? Dyslipidemia ??? GERD (gastroesophageal reflux disease) ??? HTN (hypertension) ??? DM (diabetes mellitus) ??? Smoker Operations/Major Procedures: Operations: Procedure(s): CARDIAC CATHETERIZATION 09/13/2017 Other Major Procedures: None History of Presentation: Romeo Coe is a 52 y.o. male with known ASCVD ( last stent to prox 75% RCA in 12/08), preservedEF (EF 60% in 2017), HTN, DM2, current smoker, family history of heart disease, presented to ED with subacute chest pain initially with exertion progressing to include at rest. ?? ASCVD Hx: 65% mid LAD &??70% ostial OM-2 lesions stented in May 2012 65% mid-LAD lesion stented in Jul 2013 in-stent restenosis addressed with LAD stent angioplasty at [facility] in January 2014 (ABSORB Stent) 75% RCA stented in 11/2016 First started 1.5 month ago, chest pain with exertion 8-10/10 chest pain. Pain decreases to 2-3/10 with rest. Nitro gives relief with pain back to 1-2/10. Normally takes 1-2 nitro in a week, now taking 10-12 per week. Pain radiates into jaw and both arms. Patient notes that the feeling is similar to heart attacks that he has similar in the past. Family convinced patient to come to the hospital today. Employee Benefits Director is Dr. Vyas. ?? Currently, he watches his diet, no problems with medications and takes them religiously. No recent.No sick contact. More SOB recently. Decreased exercise tolerance in general. Does not currently work. Currently smokes 1-5 cigarettes a day. He notes excessive family strife with 2 brothers that pt does not speak to and a teenage daughter that gives him problems Hospital Course: # Chest pain # History of stable angina # ASCVD -Admitted on 09/12/2017, continue home aspirin (325 mg) and Plavix (75 mg qd), heparin drip started.The patient initial EKG showed normal sinus rhythm. Cardiac enzymes negative ??3. Patient was takenfor cardiac catheterization on 09/13/2017, which showed nonobstructive disease. TTE was performed on09/13/2017, showed normal findings. Given these findings, it is likely that patient has noncardiac chest pain; though may consider micro-vascular coronary disease. May consider pain related to fibromyalgia, as he admits to pain at anterior chest which worsens with palpation. He was determined to be stable for discharge on 09/14/2017. On discharge, his aspirin was changed from 325 mg daily (taken asan outpatient) to 81 mg daily. His home Imdur was discontinued due to lightheadedness/presyncopal symptoms. He will follow-up with his telecom assistant, Dr. Vyas, approximately 1 week as an outpatient -he also has an ongoing syncope workup with outpatient telemetry monitoring. Note that no events were noted on telemetry, and he was ambulatory on the floor without syncopal symptoms or chest pain. Vital Signs at Discharge: BP: 111/70, Heart Rate: 76, Temp: 36.4 ??C (97.6 ??F), Resp: 16, BMI (Calculated): 31.81 Height: 180.3 cm (5' 11) (09/12/17 1745) Weight: 102.5 kg (225 lb 15.5 oz) (09/14/17 0556) Functional and Cognitive Status: Stable Important Studies and Lab Data: Labs: Last 3 wbc, hgb, hct plt Recent Labs 09/14/17 0340 09/13/17 0632 09/12/17 1329 WBC 9.0 9.2 8.9 HGB 15.0 15.4 14.8 HCT 45.8 44.9 43.3 PLATELET 188 186 208 Last 3 Lytes Recent Labs 09/14/17 0340 09/13/17 0632 09/12/17 1329 NA 143 142 143 K 4.0 3.7 3.9 CL 106 106 106 CO2 22 21* 20* BUN 11 11 10 CREATININE 1.05 0.99 0.96 Last 3 LFTs No results for input(s): AST, ALT, ALKPHOS, BILITOT, BILIDIR in the last 7068 hours. Last 3 ProBNP, Trop, CK Recent Labs 09/13/17 0632 09/13/17 0013 09/12/17 1853 09/12/17 1329 CK -- 55 57 65 TROPONINT -- <0.01 <0.01 <0.01 PROBNP 15 -- -- 20 Studies: Cardiac Cath, 09/13/2017 Conclusions: * One vessel coronary artery disease (RCA) * IFR acorss proximal RPDA stenosis 0.97 (not significant). * IFR acorss mid LAD stenosis 0.95 (not significant). TTE, 09/13/2017 SUMMARY: ?? 1. Mild concentric left ventricular [...] See remainder of report for additional findings. Discharge Conditions/Prognosis: stable Discharge to: home Updated Allergies/ADRs: Allergies Allergen Reactions ??? Thallium-201 Severe cardiac event ??? Lisinopril Other (See Comments) cough ??? Paper Tape [Adhesive Tape] Rash Immunizations Given this Hospitalization: Immunization History Administered Date(s) Administered ??? Influenza PF, Split 07/30/2013 ??? Influenza Vaccine (Novel) [id number], Injectable 05/24/2009 ??? Influenza Vaccine w/Preservative, Split 06/15/2012 ??? Influenza Vaccine, Whole 06/21/2008, 05/24/2009 ??? Pneumococcal Polyvalent 23 05/24/2009 Discharge Medications: Your Medications UNREVIEWED medications - Discuss With Your Provider Dose Details aspirin 325 mg Tab Take 325 mg by mouth daily. 325 mg Refills: 0 buPROPion 150 mg Tb12 Commonly known as: WELLBUTRIN SR or ZYBAN Take 150 mg by mouth 2 times daily. 150 mg Refills: 0 clopidogrel 75 mg Tab Commonly known as: PLAVIX Take 1 tablet by mouth daily. 75 mg Quantity: 30 tablet Refills: 2 colchicine 0.6 mg Tab Commonly known as: COLCRYS Take 0.6 mg by mouth 2 times daily as needed (gout). 0.6 mg Refills: 0 cyclobenzaprine 10 mg Tab Commonly known as: FLEXERIL Take 10 mg by mouth 3 times daily as needed. 10 mg Refills: 0 DULoxetine 60 mg Cpdr Commonly known as: CYMBALTA Take 60 mg by mouth 2 times daily. 60 mg Refills: 0 furosemide 20 mg Tab Commonly known as: LASIX Take 20 mg by mouth daily as needed. 20 mg Refills: 0 gabapentin 300 mg Cap Commonly known as: NEURONTIN Take 300 mg by mouth 3 times daily. 2 tabs in morning, 2 tabs in evening and 3 tabs at bedtime 300 mg Refills: 0 isosorbide mononitrate 120 mg Tablet sr Commonly known as: IMDUR Take 1 tablet by mouth daily. 120 mg Quantity: 30 tablet Refills: 2 levalbuterol 45 mcg/actuation Hfaa Commonly known as: XOPENEX HFA Inhale 1-2 puffs into the lungs every 6 hours as needed for Wheezing or Shortness of Breath. 1-2 puff Refills: 0 losartan 25 mg Tab Commonly known as: COZAAR Take 12.5 mg by mouth daily. 12.5 mg Refills: 0 meTOPROLOL tartrate 50 mg Tab Commonly known as: LOPRESSOR Take 50 mg by mouth 2 times daily. 50 mg Refills: 0 nicotine polacrilex 4 mg Lozg Commonly known as: COMMIT Place 1 lozenge inside cheek as needed for Smoking cessation. 4 mg Quantity: 100 tablet Refills: 0 nitroGLYcerin 0.4 mg Subl Commonly known as: NITROSTAT Place 0.4 mg under the tongue every 5 minutes as needed. 0.4 mg Refills: 0 oxyCODONE 10 mg Tab Commonly known as: ROXICODONE Take 10 mg by mouth 4 times daily as needed. 10 mg Refills: 0 pantoprazole 40 mg Tbec Commonly known as: PROTONIX Take 40 mg by mouth 2 times daily. 40 mg Refills: 0 pramipexole 0.5 mg Tab Commonly known as: MIRAPEX Take 0.5 mg by mouth nightly. 0.5 mg Refills: 0 ranolazine 500 mg Tb12 Commonly known as: RANEXA Take 500 mg by mouth 2 times daily. 500 mg Refills: 0 rosuvastatin 20 mg Tab Commonly known as: CRESTOR What changed: Another medication with the same name was removed. Continue taking this medication, and follow the directions you see here. Refills: 0 topiramate 50 mg Tab Commonly known as: TOPAMAX Take 50 mg by mouth nightly. 50 mg Refills: 0 TYLENOL ARTHRITIS 650 mg Tbsr Take 650 mg by mouth every 8 hours as needed. Do not exceed 6 tabs in 24 hours Generic drug: acetaminophen 650 mg Refills: 0 varenicline 0.5 mg (11)- 1 mg (42) Dspk Commonly known as: CHANTIX Take 0.5 mg by mouth daily. Day 1-3: Take 0.5 mg daily. Day 4-7: take 0.5 mg bid. Day 8 forward-take 1mg bid 0.5 mg Quantity: 53 tablet Refills: 0 Smoking Status at Discharge: History Smoking Status ??? Current Every Day Smoker ??? Packs/day: 0.50 ??? Types: Cigarettes Smokeless Tobacco ??? Former User Comment: declines smoking cesation info. Starting Chantix next week. Instructions Given to Patient at Discharge: There are no outpatient Patient Instructions on file for this admission. General Instructions None Discharge References/Attachments PCI (PERCUTANEOUS CORONARY INTERVENTION): POST-OP (PAPUA [place] GUINEAN) documented in this encounter Discharge Instructions * Patient Instructions* Giuseppe Pierson MD - 09/14/2017 10:06 AM EST Instruction after leaving the hospital Why you were hospitalized: You were hospitalized for chest pain of unclear etiology. Your cardiac catheterization showed non-obstructive disease of your coronary arteries. The echocardiogram of your heart was normal. Call your doctor or seek medical attention if you develop the following: Call your doctor or seek medical attention if you experience any alarming symptoms. This may include, but is not limited to, fever, chest pain, severe shortness of breath, lightheadedness, nausea with vomiting, persistent decrease in your urinary output, severe pain, or any other concerning symptoms. Activity level: As tolerated. Diet: No new restrictions. Driving: Please do not drive if you feel lightheaded, dizzy, faint, or taking any opioids/narcotics(i.e oxycodone). It is advisable that you do not drive until you follow-up with your primary care physician. Shower/Bath: No new restrictions. Wound Care: N/A Home Oxygen therapy: N/A Follow-Up Appointments Date and Time Provider and Specialty Location 10/09/2017, 11:15 AM Coni Lim MD , PCP [address] / [place] [address] 09/22/2017, 10:30 AM Florian Ling MD, Employee Benefits Director [place], [place] Your Inpatient Doctor(s) at [facility]: Christos Buchanan MD Daniel Storms, MD Sean Li, MD Jeffrey R Wunderlich, MD Your Primary Care Provider: Coni Lim MD [address] / [place] [address] For questions regarding this document or issues relating to this hospitalization on the Medical Service, please contact your inpatient physician through the [facility] Treatment Plant Mechanic . Issues afterhours and on weekends will be handled by the Hospitalist staff on-call. * Attachments The following attachments cannot be sent through Care Everywhere. * PCI (PERCUTANEOUS CORONARY INTERVENTION): POST-OP (PAPUA NEW GUINEAN) documented in this encounter Medications at Time of Discharge Medication Sig Dispensed Refills Start Date End Date colchicine (COLCRYS) 0.6 mg Tablet Take 0.6 [...] tablet Take 10 mg by mouth nightly. aspirin 81 mg Tablet, Chewable Take 81 mg by mouth daily. 30 tablet 3 09/15/2017 06/10/2021 rosuvastatin (CRESTOR) 20 mg Tablet 07/24/2017 03/16/2019 nicotine polacrilex (COMMIT) [address] 1 lozenge inside cheek as needed for Smoking cessation. 100 tablet 11/25/2016 2021 varenicline (CHANTIX) 0.5 mg (11)- 1 mg (42) Tablets, Dose Pack Take 0.5 mg by mouth daily. Day 1-3: Take 0.5 mg daily. Day 4-7: take 0.5 mg bid. Day 8 forward-take 1mg bid 53 tablet 11/25/2016 2021 meTOPROLOL tartrate (LOPRESSOR) 50 mg Tablet Take 100 mg by mouth 2 times daily. 03/16/2019 oxyCODONE (ROXICODONE) 10 mg Tablet Take 10 mg by mouth 4 times daily as needed. 2021 losartan (COZAAR) 25 mg Tablet Take 12.5 mg by mouth daily. 03/16/2019 furosemide (LASIX) 20 mg tablet Take 20 mg by mouth daily as needed. 03/16/2019 nitroGLYcerin (NITROSTAT) 0.[address] 0.4 mg under the tongue every 5 minutes as needed. 03/16/2019 documented as of this encounter Progress Notes * Christos Buchanan MD - 09/14/2017 8:19 AM EST Inpatient Cardiology Progress Note/Day of discharge note Patient Name: Romeo Coe Date of Admission: 09/12/2017 ( Hospital Day 0 days ) Service: S2 ID: Romeo Coe is a 52 y.o. male with known ASCVD ( last stent to prox 75% RCA in 12/08), preserved EF (EF 60% in 2017), HTN, DM2, current smoker, family history of heart disease, presented to EDwith subacute chest pain initially with exertion progressing to include at rest. Active Problems: Active Hospital Problems Diagnosis ??? Unstable angina Resolved Hospital Problems Diagnosis Date Resolved No resolved problems to display. 24 hr events/Subjective: - ROS: Denies CP, SOB, palpitations, PND, Orthopnea, dizziness/LH, LE swelling or pain, n/v, abd pain. Physical Exam: Last value Range last 24 hrs Temperature Temp: 36.4 ??C (97.6 ??F) Temp: [36.4 ??C (97.5 ??F)-36.7 ??C (98.1 ??F)] Heart Rate Heart Rate: 76 Heart Rate: [63-78] Blood Pressure BP: 111/70 BP: (88-115)/(58-78) Respiratory Rate Resp: 16 Resp: [11-18] SpO2 SpO2: 95 % SpO2: [92 %-99 %] Telemetry: Intake/Output Summary (Last 24 hours) at 09/14/17 0804 Last data filed at 09/14/17 0732 Gross per 24 hour Intake 3316.26 ml Output 2550 ml Net 766.26 ml Patient Vitals for the past 168 hrs: Weight 09/14/17 0556 102.5 kg (225 lb 15.5 oz) 09/13/17 0542 101.6 kg (223 lb 15.8 oz) 09/12/17 1745 103.5 kg (228 lb 1.6 oz) 09/12/17 1444 104 kg (229 lb 4.5 oz) Physical exam: General: alert, conversant male appears in NAD Neck: Supple, normal ROM, no JVD appreciated Heart: RRR, normal S1 and S2; no m/r/g apparent Lungs: No increased WOB; CTAB, no rhonchi/wheezes/rales Abdomen: Soft, BS+ NT, ND, no bruits, no rebound or guarding, no organomegaly Extremities: Full ROM; no cyanosis, edema, or clubbing; pulses 2+ bilaterally Neuro: AOx3, non-focal, CN II-XII intact Skin: Warm, dry; no rashes or lesions Labs Recent Labs 09/14/17 0340 09/13/17 0632 09/12/17 1329 WBC 9.0 9.2 8.9 HGB 15.0 15.4 14.8 HCT 45.8 44.9 43.3 PLATELET 188 186 208 Recent Labs 09/14/17 0340 09/13/17 0632 09/12/17 1329 NA 143 142 143 K 4.0 3.7 3.9 CL 106 106 106 CO2 22 21* 20* BUN 11 11 10 CREATININE 1.05 0.99 0.96 No results for input(s): AST, ALT, ALKPHOS, BILITOT, BILIDIR in the last 168 hours. Recent Labs 09/14/17 0340 09/13/17 0632 09/12/17 1329 CALCIUM 9.2 9.4 9.2 MAGNESIUM 0.83 0.84 -- Recent Labs 09/14/17 0340 09/13/17 0632 09/13/17 0013 09/12/17 1329 INR 1.0 1.1 -- 1.1 PT 13.3 13.8 -- 13.7 PTT -- 113* 50* 28 Recent Labs 09/13/17 0013 09/12/17 1853 09/12/17 1329 CK 55 57 65 TROPONINT <0.01 <0.01 <0.01 Imaging/Studies: Cardiac catheterization (09/14/17): Coronary Angiography: Dominance: Right ? Left Main The left main was normal. ? Left Anterior Descending There was mild diffuse disease of the entire vessel segment of the left anterior descending artery (LAD). The mid segment of the LAD had a hazy single discrete 40% stenosis. The previously placed stent is patent. ? Left Circumflex There was mild diffuse disease of the entire vessel segment of the left circumflex artery (LCX). The previously placed stent is patent. ? Right Coronary Artery There was mild diffuse disease of the entire vessel segment of the right coronary artery (RCA). The proximal segment of the RCA had mild diffuse disease. The previously placed stent is patent. There also was moderate diffuse disease of the distal 1 segment of the RCA. The distal 2 segment of the RCA was ectatic. ? There was a 45% stenosis of the ostial segment of the right posterior descending branch (RPDA) of the RCA. EDP 9 Conclusions: * One vessel coronary artery disease (RCA) * IFR acorss proximal RPDA stenosis 0.97 (not significant). * IFR acorss mid LAD stenosis 0.95 (not significant). TTE (09/14/17): SUMMARY: ?? 1. Mild concentric left ventricular [...] See remainder of report for additional findings. Medications: ??? sodium chloride 0.9 % 5 mL Intravenous Q12H ??? aspirin 81 mg Oral Daily ??? buPROPion 150 mg Oral BID ??? clopidogrel 75 mg Oral Daily ??? DULoxetine 60 mg Oral BID ??? isosorbide mononitrate 120 mg Oral Daily ??? losartan 12.5 mg Oral Daily ??? meTOPROLOL tartrate 50 mg Oral BID ??? pantoprazole 40 mg Oral BID ??? pramipexole 0.5 mg Oral Nightly ??? rosuvastatin 20 mg Oral QPM ??? topiramate 50 mg Oral Nightly ??? sodium chloride 0.9 % 5 mL Intravenous BID ??? nicotine 14 mg Transdermal Daily And ??? Patch Verification 1 patch Transdermal BID And ??? nicotine 1 patch Transdermal Daily ? ? gabapentin 600 mg Oral 2x Daily AC Bkfst & Lunch ??? gabapentin 900 mg Oral Nightly sodium chloride 0.9 %, lidocaine, cyclobenzaprine, oxyCODONE, sodium chloride 0.9 %, lidocaine, nitroGLYcerin, acetaminophen Assessment: Romeo Coe is a 52 y.o. male with known ASCVD ( last stent to prox 75% RCA in 12/08), preservedEF (EF 60% in 2017), HTN, DM2, current smoker, family history of heart disease, presented to ED with subacute chest pain initially with exertion progressing to include at rest. Mr. Coe was seen and evaluated today, and determined to be stable for discharge to home. The etiology of his chest pain appears noncardiac in nature, may consider related to his fibromyalgia, as his cardiac catheterization showed non-obstructive disease. TTE was normal. On discharge, he will follow up with PCP and cardiology, as he has ongoing workup for dysrhythmia. Will d/c imdur and ranolazine, which he takes at home, which should help with lightheadedness with ambulation; reducing aspirin to 81 mg daily (patient was taking 325 mg daily at home, for which there is no current indication). Giuseppe Pierson MD, PGY-1 Cardiology S1 (pgr. [id number]) Cardiology Staff Addendum I have discussed, reviewed and agree with the documented interval history, Physical findings, Assessment and Plan of care. I have independently interviewed and examined the patient myself and have noadditions to the interval history, physical, assessment or plan of care. * Giuseppe Pierson MD - 09/13/2017 5:14 PM EST Post Cath Note S: No chest pain, dyspnea, abdominal pain, or groin pain. O: Temp: 97.5 BP: 103/58 HR: 78 R: 16 SpO2: 95 % on RA General: Lying in bed in NAD. Abdomen: No flank or back tenderness. Groin: Right femoral access site is clean and dry, without bruit. No signs of infection, bleeding, ecchymosis, or hematoma. Ext: Warm, sensation intact, 2+ PT pulses. A/P: s/p cath with benign appearing right femoral access site. Giuseppe Pierson MD, PGY-1 Cardiology Service Pager # [phone] * Aida Dietrich MSW - 09/13/2017 2:23 PM EST Notified by Care Management Utilization Management (UM) Department that patient remains in observation status and anticipated length of stay will be greater than 24 hours. Medicare Outpatient Observation Notice (CEBALLOS) has been given and explained to Romeo Coe. Questions were answered to the best of my ability. Mr. Coe was offered copies of CMS publications; Are You a Hospital Inpatient or Outpatient? and Medicare Rights and Protections. Notice has been signed along with date and time, a copy of notice made and given to patient/telemarketing sales representative. Original notice to be scanned into patient's medical record. TIMBO Jaimes * Agusto Ball II - 09/13/2017 11:32 AM EST Preliminary Cardiac Catheterization Procedure Note: Procedure(s) performed: Cors, LHC, IFR of prox RPDA, mid LAD Access: R FA A time-out was conducted prior to the start of the procedure to verify the correct patient and procedure, procedure location, and all relevant critical information. Preliminary findings: 1VD (RCA), negative IFR across prox RPDA, mid LAD. The patient tolerated the procedures smoothly and was transferred from the cardiac catheterization lab to the next level of care in condition. No evident early complications. Full report to follow. AGUSTO BALL II, MD * Christos Buchanan MD - 09/13/2017 10:37 AM EST Inpatient Cardiology Progress Note Patient Name: Romeo Coe Date of Admission: 09/12/2017 ( Hospital Day 0 days ) Service: S2 ID: Romeo Coe is a 52 y.o. male with known ASCVD ( last stent to prox 75% RCA in 12/08), preserved EF (EF 60% in 2017), HTN, DM2, current smoker, family history of heart disease, presented to EDwith subacute chest pain initially with exertion progressing to include at rest. Active Problems: Active Hospital Problems Diagnosis ??? Unstable angina Resolved Hospital Problems Diagnosis Date Resolved No resolved problems to display. 24 hr events/Subjective: - NF: increased gabapentin to home dose of 600-600-900. Added fingersticks for hx of Type II DM ROS: Denies CP, SOB, palpitations, PND, Orthopnea, dizziness/LH, LE swelling or pain, n/v, abd pain. Physical Exam: Last value Range last 24 hrs Temperature Temp: 36.7 ??C (98.1 ??F) Temp: [36.4 ??C (97.5 ??F)-36.7 ??C (98.1 ??F)] Heart Rate Heart Rate: 75 Heart Rate: [69-91] Blood Pressure BP: 110/71 BP: (98-127)/(64-97) Respiratory Rate Resp: 16 Resp: [11-28] SpO2 SpO2: 99 % SpO2: [92 %-99 %] Telemetry: sinus, rare PVCs HR 60-90, avg 70s Intake/Output Summary (Last 24 hours) at 09/13/17 0839 Last data filed at 09/13/17 0800 Gross per 24 hour Intake 540 ml Output 1750 ml Net -1210 ml Patient Vitals for the past 168 hrs: Weight 09/13/17 0542 101.6 kg (223 lb 15.8 oz) 09/12/17 1745 103.5 kg (228 lb 1.6 oz) 09/12/17 1444 104 kg (229 lb 4.5 oz) Physical exam: General: alert, conversant male appears in NAD Neck: Supple, normal ROM, no JVD appreciated Heart: RRR, normal S1 and S2; no m/r/g apparent Lungs: No increased WOB; CTAB, no rhonchi/wheezes/rales Abdomen: Soft, BS+ NT, ND, no bruits, no rebound or guarding, no organomegaly Extremities: Full ROM; no cyanosis, edema, or clubbing; pulses 2+ bilaterally Neuro: AOx3, non-focal, CN II-XII intact Skin: Warm, dry; no rashes or lesions Labs Recent Labs 09/13/17 0632 09/12/17 1329 WBC 9.2 8.9 HGB 15.4 14.8 HCT 44.9 43.3 PLATELET 186 208 Recent Labs 09/13/17 0632 09/12/17 1329 NA 142 143 K 3.7 3.9 CL 106 106 CO2 21* 20* BUN 11 10 CREATININE 0.99 0.96 No results for input(s): AST, ALT, ALKPHOS, BILITOT, BILIDIR in the last 168 hours. Recent Labs 09/13/17 0632 09/12/17 1329 CALCIUM 9.4 9.2 MAGNESIUM 0.84 -- Recent Labs 09/13/17 0632 09/13/17 0013 09/12/17 1329 INR 1.1 -- 1.1 PT 13.8 -- 13.7 PTT 113* 50* 28 Recent Labs 09/13/17 0013 09/12/17 1853 09/12/17 1329 CK 55 57 65 TROPONINT <0.01 <0.01 <0.01 Imaging/Studies: Cardiac Catheterization, TTE pending Medications: ??? aspirin 325 mg Oral Daily ??? buPROPion 150 mg Oral BID ??? clopidogrel 75 mg Oral Daily ??? DULoxetine 60 mg Oral BID ??? isosorbide mononitrate 120 mg Oral Daily ??? losartan 12.5 mg Oral Daily ??? meTOPROLOL tartrate 50 mg Oral BID ??? pantoprazole 40 mg Oral BID ??? pramipexole 0.5 mg Oral Nightly ??? rosuvastatin 20 mg Oral QPM ??? topiramate 50 mg Oral Nightly ??? sodium chloride 0.9 % 5 mL Intravenous BID ??? nicotine 14 mg Transdermal Daily And ??? Patch Verification 1 patch Transdermal BID And ??? nicotine 1 patch Transdermal Daily ? ? gabapentin 600 mg Oral 2x Daily AC Bkfst & Lunch ??? gabapentin 900 mg Oral Nightly ??? heparin (porcine) 1,400 Units/hr (09/13/17 0722) heparin (porcine) AND heparin (porcine), cyclobenzaprine, oxyCODONE, sodium chloride 0.9 %, lidocaine, nitroGLYcerin, acetaminophen Assessment: Romeo Coe is a 52 y.o. male with known ASCVD ( last stent to prox 75% RCA in 12/08), preservedEF (EF 60% in 2017), HTN, DM2, current smoker, family history of heart disease, presented to ED with subacute chest pain initially with exertion progressing to include at rest. Plan: # Unstable Angina - NPO for cath today - TTE pending - Medications (Respective loading doses previously given): - ASA 325mg (home dose) d/c'd and changed to 81 mg qd, given no indication for high dose ASA daily - Plavix 75mg qd (not loaded since this is home med) - heparin gtt - Rosuvastatin 20mg qhs - Lopressor 50mg q12 - losartan 12.5mg qd - Imdur 120mg QD - GTN prn chest pain - Home ranolazine stopped # Pre-diabetes - A1c # Tobacco cessation - 14mg patch ?? # Home meds - Bupropion 150mg BID - Pamipexole 0.5mg QHS - Topiramate 50mg QHS (headaches) - Home Oxycodone 10mg QID PRN - Duloxetine 60mg BID - Gabapentin 600 mg before breakfast and lunch, 900 mg qhs ? # Others - Diet: cardiac diet, NPO after MN - VTE: on heparin drip - Code: Full Code - Code Status: FULL - Dispo: floor status, discharge pending clinical course Giuseppe Pierson MD, PGY-1 Cardiology S1 (pgr. [id number]) Cardiology Staff Addendum I have discussed, reviewed and agree with the documented interval history, Physical findings, Assessment and Plan of care. I have independently interviewed and examined the patient myself and have noadditions to the interval history, physical, assessment or plan of care. Cath today showed no obstructive CAD. Will continue current medication and ambulate. Consider d/c when off bedrest and when ambulating without chest pain. * Mariela So RN - 09/12/2017 5:31 PM EST [facility] stretcher from ED s/p chest pressure. Patient AOx 4, HR regular, lungsounds clear, Positive bs, lbm 09/12/17, voiding urine. +csmt to all extremities. Pain 2/10 at this time, nothing controlling pain. Patient oriented to room, call perez to bedside, please see flowsheetfor full assessment. Will continue to monitor Mariela So RN documented in this encounter H&P Notes * Christos Buchanan MD - 09/12/2017 3:25 PM EST CARDIOLOGY HISTORY & PHYSICAL EXAM Date of Admission: 09/12/2017 ( Hospital Day 0 days ) Responsible Attending: Christos Buchanan MD PCP: Coni Lim MD PCP#: [phone] CC: Chest Pain Patient Active Problem List Diagnosis Code ??? Dyslipidemia E78.5 ??? GERD (gastroesophageal reflux disease) K21.9 ??? HTN (hypertension) I10 ??? DM (diabetes mellitus) E11.9 ??? Smoker F17.200 ??? CAD (coronary artery disease) I25.10 ??? Hx-TIA (transient ischemic attack) Z86.73 ??? Chest pain R07.9 ??? Unstable angina I20.0 History of Present Illness: Romeo Coe is a 52 y.o. male with known ASCVD ( last stent to prox 75% RCA in 12/08), preservedEF (EF 60% in 2017), HTN, DM2, current smoker, family history of heart disease, presented to ED with subacute chest pain initially with exertion progressing to include at rest. ASCVD Hx: 65% mid LAD & 70% ostial OM-2 lesions stented in May 2012 65% mid-LAD lesion stented in Jul 2013 in-stent restenosis addressed with LAD stent angioplasty at [facility] in January 2014 (ABSORB Stent) 75% RCA stented in 11/2016 First started 1.5 month ago, chest pain with exertion 8-10/10 chest pain. Pain decreases to 2-3/10 with rest. Nitro gives relief with pain back to 1-2/10. Normally takes 1-2 nitro in a week, now taking 10-12 per week. Pain radiates into jaw and both arms. Patient notes that the feeling is similar to heart attacks that he has similar in the past. Family convinced patient to come to the hospital today. Employee Benefits Director is Dr. Vyas. Currently, he watches his diet, no problems with medications and takes them religiously. No recent.No sick contact. More SOB recently. Decreased exercise tolerance in general. Does not currently work. Currently smokes 1-5 cigarettes a day. He notes excessive family strife with 2 brothers that pt does not speak to and a teenage daughter that gives him problems ROS: Negative except for HPI Past Medical History: Past Medical History: Diagnosis Date ??? CAD (coronary artery disease), non-obstructive 05/31/2012 ??? DM (diabetes mellitus) 05/31/2012 ??? Dyslipidemia 05/31/2012 ??? GERD (gastroesophageal reflux disease) 05/31/2012 ??? HTN (hypertension) 05/31/2012 ??? Hx-TIA (transient ischemic attack) 06/03/2012 ??? Smoker 05/31/2012 Past Surgical History: Past Surgical History: Procedure Laterality Date ??? CHOLECYSTECTOMY ??? HERNIA REPAIR ??? KNEE SURGERY Right ??? TONSILLECTOMY AND ADENOIDECTOMY Medications: No current facility-administered medications on file prior to encounter. Current Outpatient Prescriptions on File Prior to Encounter Medication Sig Dispense Refill ??? metFORMIN (GLUCOPHAGE) 850 mg Tablet Take 1 tablet by mouth daily. 60 tablet 12 ??? nicotine polacrilex (COMMIT) [address] 1 lozenge inside cheek as needed for Smoking cessation. 100 tablet 0 ??? varenicline (CHANTIX) 0.5 mg (11)- 1 mg (42) Tablets, Dose Pack Take 0.5 mg by mouth daily. Day1-3: Take 0.5 mg daily. Day 4-7: take 0.5 mg bid. Day 8 forward-take 1mg bid 53 tablet 0 ??? meTOPROLOL tartrate (LOPRESSOR) 50 mg Tablet Take 50 mg by mouth 2 times daily. ??? aspirin 325 mg Tablet Take 325 mg by mouth daily. ??? colchicine (COLCRYS) 0.6 mg Tablet Take 0.6 mg by mouth 2 times daily as needed (gout). ??? oxyCODONE (ROXICODONE) 10 mg Tablet Take 10 mg by mouth 4 times daily as needed. ??? losartan (COZAAR) 25 mg Tablet Take 12.5 mg by mouth daily. ??? pantoprazole (PROTONIX) 40 mg Tablet, Delayed Release (E.C.) Take 40 mg by mouth daily. ??? ranolazine (RANEXA) 500 mg Tablet Sustained Release 12 hr Take 500 mg by mouth 2 times daily. ??? buPROPion (WELLBUTRIN SR OR ZYBAN) 150 mg Tablet Sustained Release Take 150 mg by mouth 2 timesdaily. ??? topiramate (TOPAMAX) 50 mg Tablet Take 50 mg by mouth nightly. ??? levalbuterol (XOPENEX HFA) 45 mcg/actuation HFA Aerosol Inhaler Inhale 1-2 puffs into the lungsevery 6 hours as needed for Wheezing or Shortness of Breath. ??? pramipexole (MIRAPEX) 0.5 mg Tablet Take 0.5 mg by mouth nightly. ??? gabapentin (NEURONTIN) 300 mg capsule Take 300 mg by mouth 3 times daily. 2 tabs in morning, 2 tabs in evening and 3 tabs at bedtime ??? furosemide (LASIX) 20 mg tablet Take 20 mg by mouth daily as needed. ??? clopidogrel (PLAVIX) 75 mg tablet Take 1 tablet by mouth daily. 30 tablet 2 ??? isosorbide mononitrate (IMDUR) 120 mg 24 hr tablet Take 1 tablet by mouth daily. 30 tablet 2 ??? rosuvastatin (CRESTOR) 10 mg tablet Take 1 tablet by mouth daily. 30 tablet 3 ??? nitroGLYcerin (NITROSTAT) 0.[address] 0.4 mg under the tongue every 5 minutes as needed. ??? DULoxetine (CYMBALTA) 60 mg capsule Take 60 mg by mouth 2 times daily. ??? acetaminophen (TYLENOL ARTHRITIS) 650 mg CR tablet Take 650 mg by mouth every 8 hours as needed. Do not exceed 6 tabs in 24 hours ??? cyclobenzaprine (FLEXERIL) 10 mg tablet Take 10 mg by mouth 3 times daily as needed. Allergies: Allergies Allergen Reactions ??? Thallium-201 Severe cardiac event ??? Lisinopril Other (See Comments) cough ??? Paper Tape [Adhesive Tape] Rash Family History: Family History Problem Relation Age of Onset ??? Myocardial Infarction Father 46 [place], CABG ??? Diabetes Mother ??? Hypertension Mother ??? Hyperlipidemia Mother ??? Diabetes Brother ??? Diabetes Brother ??? Hypertension Brother ??? Hypertension Brother ??? Hyperlipidemia Brother ??? Hyperlipidemia Brother Social History: Social History Social History ??? Marital status: Spouse name: N/A ??? Number of children: 3 ??? 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 Smoking status: Current Every Day Smoker Packs/day: 0.50 Types: Cigarettes ??? Smokeless tobacco: Former User Comment: declines smoking cesation info. Starting Chantix next week. ??? Alcohol use No Comment: in past month ??? Drug use: Yes Comment: daily ??? Sexual activity: Yes Partners: Female Other Topics Concern ??? Not on file Social History Narrative Lives with , foster son (age 18 months), daughter 11 in [place], [place]. Takes care of his mother who has dementia and he takes her to dialysis. is disabled. Has grown daughter who is 29 years old. 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 Physical Exam: Vitals: Most Recent Vitals: 09/12/17 1210 BP: 127/84 Pulse: 91 Resp: 16 Temp: 36.5 ??C (97.7 ??F) SpO2: 98% General: alert, conversant male appears in NAD Neck: Supple, normal ROM, no JVD appreciated Heart: RRR, normal S1 and S2; no m/r/g apparent Lungs: No increased WOB; CTAB, no rhonchi/wheezes/rales Abdomen: Soft, BS+ NT, ND, no bruits, no rebound or guarding, no organomegaly Extremities: Full ROM; no cyanosis, edema, or clubbing; pulses 2+ bilaterally Neuro: AOx3, non-focal, CN II-XII intact Skin: Warm, dry; no rashes or lesions CXR, 09/12/2017 IMPRESSION No acute cardiopulmonary disease. TTE, 11/22/2016 1. The left ventricular chamber size is normal. Left ventricular wall thickness is normal. There is normal global left ventricular systolic function. The quantitative left ventricular ejection fraction by biplane [employer] method is 60%. There are left ventricular segmental wall motion abnormalities present, as shown in the diagram below. 2. The right ventricle is normal in size. Right ventricular global systolic function is normal. EKG, 09/12/2017 NSR, HR 82 ASCVD Hx: 65% mid LAD & 70% ostial OM-2 lesions stented in May 2012 65% mid-LAD lesion stented in Jul 2013 in-stent restenosis addressed with LAD stent angioplasty at [facility] in January 2014 (ABSORB Stent) 75% RCA stented in 11/2016 Assessment: Romeo Coe is a 52 y.o. male with known ASCVD ( last stent to prox 75% RCA in 12/08), preservedEF (EF 60% in 2017), HTN, DM2, current smoker, family history of heart disease, presented to ED with subacute chest pain initially with exertion progressing to include at rest. Current symptoms mirror symptoms with previous MIs. Patient is a current smoker and a proven vasculopath. It is reasonable to start heparin tonight with cardiac cath tomorrow. At home, patient already has numerous strategies for anti-anginal (ranolazine, metoprolol, imdur). Plan: # Admit to S1 Cardiology, 3011 # Admit to Cardiology, S2 ?? # Unstable Angina - NPO midnight for cath tomorrow - Medications (Respective loading doses previously given): - ASA 325mg qd (HOME MEDICATION - Plavix 75mg qd (not loaded since this is home med) - START heparin gtt - Lopressor 50mg q12 - losartan 12.5mg qd - Rosuvastatin 20mg qhs - Imdur 120mg QD - STOP Ranolazine - GTN prn chest pain - Labs - Cardiac enzyme x3 - CBC, CMP - Lipid profile, hba1c tomorrow AM - Imaging - EKG daily - f/u formal TTE # Tobacco cessation - 14mg patch # Other - Bupropion 150mg BID - Pamipexole 0.5mg QHS - Topiramate 50mg QHS (headaches) - Home Oxycodone 10mg QID PRN - Duloxetine 60mg BID - Gabapentin 300mg TID ?? # Others - Diet: cardiac diet, NPO after MN - VTE: heparin - Code: Full Code - Code Status: FULL - Dispo: floor status, discharge pending clinical course Stephen Cota M.D. Internal Medicine, PGY-2 Cardiology S1, #3011 Cardiology Staff Addendum I have discussed, reviewed and agree with the documented history, Physical findings, Assessment andPlan of care. I have independently interviewed and examined the patient myself and have no additions to the history, physical, assessment or plan of care. Risk of cardiac catheterization were explained to the patient and include but are not limited to stroke, , heart attack, bleeding, infection and emergent bypass surgery. The patient was given the opportunity to ask questions and informed consent was obtained. documented in this encounter ED Notes * Blair Judd RN - 09/12/2017 4:13 PM EST Pt seen by Cards, awaiting admit bed. * Blair Judd RN - 09/12/2017 2:45 PM EST Pt denies cp or sob, pressure . * Molly Mayer MD - 09/12/2017 1:08 PM EST Romeo Coe is an 52 y.o. male who presents to the ED with: Chief Complaint Patient presents with ??? Chest Pain I saw this patient at 1:08 PM History of Present Illness Romeo Coe is a 52 y.o. male with h/o ASCVD s/p stents x 6 last one November 2016 in RCA, DM, HTN, HLD, tobacco use who presents with chest pain. His symptoms started 90 days ago. It initially started with exertion only and now it occurs at rest (for last week and a half). He feels a heavy pressure on his chest. With any exertion, he has sharp pain that radiates to his jaw, bilateral arm and legs along with numbness/tingling. He endorses palpitations and SOB that occurs with episodes. He endorses cough. He smoked 3-4 packs per day and is now down to 5 cigarettes daily. He also had episode of clots in stool two days ago. Patient has contacted his telecom assistant who advised to presentto the ED. He presents today because his family finally convinced him to come. Review of Systems Constitutional: Negative for chills and fever. HENT: Negative for congestion. Eyes: Negative for visual disturbance. Respiratory: Positive for cough and shortness of breath. Cardiovascular: Positive for leg swelling. Negative for chest pain. Gastrointestinal: Positive for blood in stool. Negative for abdominal pain, nausea and vomiting. Endocrine: Positive for polyuria. Genitourinary: Negative for dysuria. Musculoskeletal: Negative for back pain. Skin: Negative for rash. Neurological: Positive for light-headedness. Negative for dizziness and headaches. Psychiatric/Behavioral: Negative for confusion. All other systems reviewed and are negative. PMHx, PSHx (ATOD), meds, & allergies reviewed & updated in chart as necessary. Physical Exam Most Recent Vitals: 09/12/17 1210 BP: 127/84 Pulse: 91 Resp: 16 Temp: 36.5 ??C (97.7 ??F) SpO2: 98% Physical Exam Constitutional: He is oriented to person, place, and time. He appears well- developed and well-nourished. No distress. Obese HENT: Head: Normocephalic and atraumatic. Mouth/Throat: Oropharynx is clear and moist. Eyes: Conjunctivae and EOM are normal. Pupils are equal, round, and reactive to light. Neck: Normal range of motion. Neck supple. No JVD present. Cardiovascular: Normal rate, regular rhythm, normal heart sounds and intact distal pulses. Exam reveals no gallop and no friction rub. No murmur heard. Pulmonary/Chest: Effort normal and breath sounds normal. No respiratory distress. Abdominal: Soft. Bowel sounds are normal. He exhibits no distension. There is no tenderness. Genitourinary: Rectal exam shows guaiac negative stool. Genitourinary Comments: No active bleeding on rectal exam Musculoskeletal: He exhibits no edema. Neurological: He is alert and oriented to person, place, and time. Skin: Skin is warm and dry. Psychiatric: He has a normal mood and affect. Nursing note and vitals reviewed. ED Course - Patient was evaluated and discussed with Dr. Doherty - Jj, triage and nursing notes reviewed. - I reviewed labs: CBC - WNL BMP -unremarkable Troponin -negative proBNP - 20 - I reviewed the EKG: Sinus Rhythm, rate 82 DC, QRS and QTc within normal limits No ST or T wave abnormalities - I reviewed imaging: CXR - By my read, no acute cardiopulmonary process - I reviewed records as above - I discussed this patient with Cardiology who will admit patient to their service - Patient received these treatments: ASA, heparin MDM and A/P MDM: Romeo Coe is a 52 y.o. male who presented with chest pain with concern for ACS. PE, ACS,pneumonia, aortic dissection, PTX and esophageal rupture were considered. Patient has no history ofprevious PE and no pleuritic component, hypoxia, tachypnea or tachycardia with low risk Wells scoreso it is unlikely he has PE. It is also unlikely patient has pneumonia, esophageal rupture and pneumothorax considering his CXR and presentation. Aortic dissection strongly considered with possibility of chest pain with radiation to back; however, this and symptoms of numbness/tingling occur only with exertion. He has equal radial pulses chest x-ray does not show widened mediastinum. Considering h is EKG and negative troponin, it is unlikely patient has STEMI but unstable angina cannot be ruled out at this point. His presentation is consistent with newer onset angina that has progressed from exertion to at rest. Currently has minimal chest pressure. He has received aspirin and has been started on heparin drip with bolus. Patient discussed with cardiology who will admit him to their service. Assessment: Unstable angina Plan/Dispo: - Dispo: Admit cardiology Molly Mayer PGY-3 Emergency Medicine *This note was dictated with Kalistick software. Molly Mayer MD Resident 09/12/17 0589 Associated attestation - Buster Doherty DO - 09/12/2017 9:46 PM EST ED ATTENDING ATTESTATION The patient was seen in conjunction with Dr. Fu, the resident physician. I have independently performed the paul portions of the history and physical exam. I have personally reviewed nursing notes, vital signs, and diagnostic studies including labs, imaging studies and EKGs. I have discussedthe details of the case with the resident and agree with the assessment and plan as described in the resident note unless stated differently in my separate note. Briefly: Patient is a 52-year-old male with significant cardiovascular disease presenting to the emergency department with symptoms which she states are similar to prior heart attacks. Patient is lowrisk for pulmonary embolism and has not had a PE in the past. I have considered aortic dissection however the patient's symptoms are closely related to prior episodes of coronary artery disease requiring stenting. Patient otherwise well-appearing without chest pain at this time. Patient started on a heparin drip and aspirin given. Patient will be admitted to the cardiology service for continued evaluation and possible stenting. documented in this encounter Miscellaneous Notes * Consult Note - Nika Montalvo RN - 09/14/2017 9:54 AM EST Cardiac rehab consult received on this patient. EMR reviewed. Patient does not appear to have qualifying diagnosis for CR services at this time. * Initial Assessments - Cali Nichols MSW - 09/14/2017 7:58 AM EST Office of Care Management Initial Assessment TIMBO Barrett reviewed record and discussed patient with Care Team. Source of Information: Patient, Chart, Treatment Team Introduced self/reviewed role; services accepted. Reason for Hospitalization: 11/21/16: Presented with Chest Pain, admitted for evaluation and management of Unstable Angina. 52 y.o. male with known ASCVD ( last stent to prox 75% RCA in 12/08), preserved EF (EF 60% in 2017),HTN, DM2, current smoker, family history of heart disease, presented to ED with subacute chest paininitially with exertion progressing to include at rest. ?? Past Medical History: Diagnosis Date ??? CAD (coronary artery disease), non-obstructive 05/31/2012 ??? DM (diabetes mellitus) 05/31/2012 ??? Dyslipidemia 05/31/2012 ??? GERD (gastroesophageal reflux disease) 05/31/2012 ??? HTN (hypertension) 05/31/2012 ??? Hx-TIA (transient ischemic attack) 06/03/2012 ??? Smoker 05/31/2012 Past Surgical History: Procedure Laterality Date ??? CHOLECYSTECTOMY ??? HERNIA REPAIR ??? KNEE SURGERY Right ??? TONSILLECTOMY AND ADENOIDECTOMY Hospitalizations Within the Past 30 Days: None at [facility], nor at outside hospitals, per pt's report. Anticipated Length Of Stay : Tentative discharge late this afternoon or tomorrow, pending cardiac cath results. Pt admitted under Observation Status; order completed by Dr. Drew Pepe on 11/22/16 @ 0008. Current Decision-Making Capacity: Patient alert, oriented, capable of making his own decisions. Advance Care Planning: Not on file in e[facility]. Not on file elsewhere per pt's report. Current Coping/Education/Information Needs: Pt coping appropriately. No complaints regarding care received to date. The nurses and LNAs have been excellent. 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 I've been disabled for five years due to Fibromyalgia and Arthritis. Home Environment: Lives with his , Dasia in [place], [place]. Social & Family Supports/Community Resources: , Friends, neighbors Dasia Coe (Spouse) [address] [place] [id number] (H) [phone] (M) Behavioral Health History: Per pt report, has Anxiety and Depression, (on Cymbalta and Wellbutrin). Substance Use/Abuse: Current every day smoker; 1-5 cigarettes a day. EtOH: None. Illicit Drug Use: Marijuana every day, medical use. Other Pertinent/Service Specific Information: None Health/Prescription Coverage: Primary Insurance: MEDICARE PART A & B Secondary Insurance: MEDICAID [place] Prescription Coverage: Yes, has Silver Script. Preferred Pharmacy: [facility] - [facility], [place] - [address] [facility] [id number] ? Not a 24 hour pharmacy; exact hours not known Other: None Primary Care Provider: Coni Lmi MD [phone] Patient/Caregiver Goals of Treatment: To return home and to his normal activities. Potential Needs for Transition of Care: Rehab/SNF: Pt has never been a pt in a rehab setting. Home Health: [facility] in the past (after right knee surgery). DME: [facility] at home (doesn't consistently use it). Dialysis: N/A Community Resources: None Transportation: Neighbors Other: None Anticipated Barriers to Discharge/Special Considerations: No barriers noted at this time. Plan: A member of the Care Management team will continue to monitor progress, follow for continuity of care and assist with transition of care planning. TIMBO Barrett Pager: [phone] * Plan of Care - Keisha Mae RN - 09/14/2017 4:23 AM EST Problem: Patient Care Overview Goal: Plan of Care Review Outcome: Ongoing (Interventions Implemented as Appropriate) 09/13/17 1624 09/13/172024 Plan of Care Review Progress improving -- Coping/Psychosocial Plan Of Care Reviewed With -- patient OUTCOME EVALUATION NOTE: OUTCOME SUMMARY: A&O. SR on tele. Refer to flowsheets for VS. Denied CP or SOB. Oxy given 1x for back/arthritis pain. R groin site c/d/i. Cont to monitor. PLAN MOVING FORWARD: Med manage D/c home 09/14 INDIVIDUALIZED FALL PREVENTION INTERVENTIONS: Patient-specific fall risk factors per assessment: [current deficits]: General weakness, meds Assistance [level of assistance required for transfers and ambulation]: SBA Supervision [direct monitoring required during toileting and ADLs]: SBA Surveillance [continuous indirect monitoring]: Tele, purposeful rounding Patient-specific fall prevention interventions for sensory deficits provided, if applicable: [X] Yes CPG GOAL OUTCOME EVALUATION: Goal: Individualization & Mutuality Outcome: Ongoing (Interventions Implemented as Appropriate) 09/12/17 1800 Mutuality/Individual Preferences What Anxieties, Fears or Concerns Do You Have About Your Health or Care? none What Questions Do You Have About Your Health or Care? none What Information Would Help Us Give You More Personalized Care? none Goal: Fall Prevention-Safe Patient Handling Outcome: Ongoing (Interventions Implemented as Appropriate) 09/13/17202409/14/17 03409/14/17 0402 Gray Fall Risk History of Falling 0 -- -- Secondary Diagnosis 15 -- -- Ambulatory Aids 0 -- -- Intravenous Therapy/Heparin/Saline Lock 20 -- -- Gait/Transferring 0 -- -- Mental Status 0 -- -- Score 35 -- -- OTHER Gray Fall Risk Med -- -- Restraint Interventions Safety Promotion/Fall Prevention -- safety round/check completed -- Positioning Body Position independent -- -- Activity Activity Type -- -- ambulated in mercer Activity Assistance Provided -- -- assistance, stand-by Goal: Infection Control Outcome: Ongoing (Interventions Implemented as Appropriate) 09/13/172024 Safety Interventions Isolation Precautions standard precautions maintained Infection Prevention environmental surveillance performed;rest/sleep promoted Coping Strategies Supportive Measures self-care encouraged Goal: Discharge Needs Assessment Outcome: Ongoing (Interventions Implemented as Appropriate) 09/13/1735409/13/17 06 Discharge Needs Assessment Concerns To Be Addressed denies needs/concerns at this time -- Discharge Disposition still a patient -- Living Environment Transportation Available -- family or friend will provide Goal: Interdisciplinary Rounds/Family Conf Outcome: Ongoing (Interventions Implemented as Appropriate) 09/13/17 035 Interdisciplinary Rounds/Family Conf Participants nursing;patient;physician * Plan of Care - Rupal Munguia RN - 09/13/2017 4:29 PM EST Problem: Patient Care Overview Goal: Plan of Care Review Outcome: Ongoing (Interventions Implemented as Appropriate) 09/13/17 1624 Plan of Care Review Progress improving Coping/Psychosocial Plan Of Care Reviewed With patient OUTCOME EVALUATION NOTE: OUTCOME SUMMARY: To cath. No intervention. R groin neg for bleed or hematoma. OOB to chair, c/o dizziness when attempted ambulation after the end of bedrest. Up in the chair for 1 hr. and was able to complete 160 feet with a rest stop for SOB(sats 97%)VS on doc flow sheet. PLAN MOVING FORWARD: Ambulated and monitor VS INDIVIDUALIZED FALL PREVENTION INTERVENTIONS: Patient-specific fall risk factors per assessment: [current deficits]: weak Assistance [level of assistance required for transfers and ambulation]: SBA Supervision [direct monitoring required during toileting and ADLs]: SBA Surveillance [continuous indirect monitoring]: rounds Patient-specific fall prevention interventions for sensory deficits provided, if applicable: CPG GOAL OUTCOME EVALUATION: Problem: Cardiac Cath/Percutaneous Coronary Intervention (Adult) Goal: Signs and Symptoms of Listed Potential Problems Will be Absent, Minimized or Managed (CardiacCath/Percutaneous Coronary Intervention) Signs and symptoms of listed potential problems will be absent, minimized or managed by discharge/transition of care (reference Cardiac Cath/Percutaneous Coronary Intervention (Adult) CPG). Outcome: Ongoing (Interventions Implemented as Appropriate) 09/13/17 1624 Cardiac Cath/Percutaneous Coronary Intervention Problems Assessed (Cardiac Catheterization) all Problems Present (Cardiac Catheterization) none * Plan of Care - Keisha Mae RN - 09/13/2017 3:59 AM EST Problem: Patient Care Overview Goal: Plan of Care Review Outcome: Ongoing (Interventions Implemented as Appropriate) 09/12/17 2030 09/13/17 0355 Plan of Care Review Progress -- no change Coping/Psychosocial Plan Of Care Reviewed With patient -- OUTCOME EVALUATION NOTE: OUTCOME SUMMARY: A&O. Refer to flowsheets for VS. Denied CP or SOB. Heparin gtt maintained per protocol. NPO at MD for possible cath. SR on tele. Cont to monitor. 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 INDIVIDUALIZED FALL PREVENTION INTERVENTIONS: Patient-specific fall risk factors per assessment: [current deficits]: General weakness, hospitalization, gtts Assistance [level of assistance required for transfers and ambulation]: SBA Supervision [direct monitoring required during toileting and ADLs]: SBA Surveillance [continuous indirect monitoring]: Tele, purposeful rounding Patient-specific fall prevention interventions for sensory deficits provided, if applicable: [X] No CPG GOAL OUTCOME EVALUATION: Goal: Individualization & Mutuality Outcome: Ongoing (Interventions Implemented as Appropriate) 09/12/17 1800 Mutuality/Individual Preferences What Anxieties, Fears or Concerns Do You Have About Your Health or Care? none What Questions Do You Have About Your Health or Care? none What Information Would Help Us Give You More Personalized Care? none Goal: Fall Prevention-Safe Patient Handling Outcome: Ongoing (Interventions Implemented as Appropriate) 09/12/17202909/13/17 0000 Gray Fall Risk History of Falling 0 -- Secondary Diagnosis 15 -- Ambulatory Aids 0 -- Intravenous Therapy/Heparin/Saline Lock 20 -- Gait/Transferring 0 -- Mental Status 0 -- Score 35 -- OTHER Gray Fall Risk Med -- Restraint Interventions Safety Promotion/Fall Prevention -- safety round/check completed Positioning Body Position independent -- Activity Activity Type activity adjusted per tolerance -- Activity Assistance Provided assistance, stand-by -- Goal: Infection Control Outcome: Ongoing (Interventions Implemented as Appropriate) 09/12/172029 Safety Interventions Isolation Precautions standard precautions maintained Infection Prevention environmental surveillance performed;rest/sleep promoted Coping Strategies Supportive Measures self-care encouraged Goal: Discharge Needs Assessment Outcome: Ongoing (Interventions Implemented as Appropriate) 09/13/17 0355 Discharge Needs Assessment Concerns To Be Addressed denies needs/concerns at this time Discharge Disposition still a patient Goal: Interdisciplinary Rounds/Family Conf Outcome: Ongoing (Interventions Implemented as Appropriate) 09/13/17 0355 Interdisciplinary Rounds/Family Conf Participants nursing;patient;physician * ED Triage - Keeley Rose RN - 09/12/2017 12:11 PM EST Pt with 1 month of chest pressure, told by telecom assistant that if he decided to be seen to come to ED, pt NAD, no radiation of pain, no n/v, SOB comes and goes, pt a smoker, EKG being performed. documented in this encounter Plan of Treatment Not on file documented as of this encounter Procedures Procedure Name Priority Date/Time Associated Diagnosis Comments POCT GLUCOSE Routine 09/14/2017 7:32 AM EST HEMOGRAM Routine 09/14/2017 3:40 AM EST DIFFERENTIAL, AUTOMATED Routine 09/14/19 3:40 AM EST PROTHROMBIN TIME Routine 09/14/2017 3:40 AM EST CBC (WITH DIFF) Routine 09/14/2017 3:40 AM EST MAGNESIUM Routine 09/14/2017 3:40 AM EST BASIC METABOLIC PANEL Routine 09/14/2017 3:40 AM EST LINKING MACHINE OPERATOR SCAN 09/14/2017 12:00 AM EST POCT GLUCOSE Routine 09/13/2017 7:50 PM EST POCT GLUCOSE Routine 09/13/2017 4:58 PM EST ECHO LMTD W/O CONTRAST W LMTD SPEC DOPP COLOR DOPP Routine 09/13/2017 2:44 PM EST Coronary artery disease, angina presence unspecified, unspecified vessel or lesion type, unspecified whether qagan tayagung[place] or transplanted heart POCT GLUCOSE Routine 09/13/2017 11:32 AM EST CARDIAC CATHETERIZATION Routine 09/13/19 11:09 AM EST EKG 12-LEAD STAT 09/13/2017 7:49 AM EST Coronary artery disease, angina presence unspecified, unspecified vessel or lesion type, unspecified whether qagan tayagung[place] or transplanted heart POCT GLUCOSE Routine 09/13/2017 7:24 AM EST BMP W/FASTING GLUCOSE Routine 09/13/2017 6:32 AM EST HEMOGRAM Routine 09/13/2017 6:32 AM EST DIFFERENTIAL, AUTOMATED Routine 09/13/19 6:32 AM EST BLOOD CULTURE Routine 09/13/2017 6:32 AM EST APTT Timed 09/13/2017 6:32 AM EST PROTHROMBIN TIME Routine 09/13/2017 6:32 AM EST CBC (WITH DIFF) Routine 09/13/2017 6:32 AM EST TRIGLYCERIDE Routine 09/13/2017 6:32 AM EST PRO-BRAIN NATRIURETIC PEPTIDE Routine 09/13/2017 6:32 AM EST MAGNESIUM Routine 09/13/2017 6:32 AM EST LDL CHOLESTEROL, DIRECT Routine 09/13/19 6:32 AM EST HDL/CHOL PROFILE Routine 09/13/2017 6:32 AM EST HEMOGLOBIN A1C Routine 09/13/2017 6:32 AM EST CARDIAC ENZYMES ([facility]) STAT 09/13/2017 12:13 AM EST APTT STAT 09/13/2017 12:13 AM EST CARDIAC CATH SCAN 09/13/2017 12: 00 AM EST POCT GLUCOSE Routine 09/12/2017 9:14 PM EST CARDIAC ENZYMES ([facility]) STAT 09/12/2017 6:53 PM EST XR CHEST PA AND LATERAL STAT 09/12/19 2:02 PM EST HEMOGRAM STAT 09/12/2017 1:29 PM EST DIFFERENTIAL, AUTOMATED STAT 09/12/19 1:29 PM EST GOLD TUBE HOLD STAT 09/12/2017 1:29 PM EST BLUE TUBE HOLD STAT 09/12/2017 1:29 PM EST CARDIAC ENZYMES ([facility]) STAT 09/12/2017 1:29 PM EST APTT STAT 09/12/2017 1:29 PM EST PROTHROMBIN TIME STAT 09/12/2017 1:29 PM EST CBC (WITH DIFF) STAT 09/12/2017 1:29 PM EST PRO-BRAIN NATRIURETIC PEPTIDE STAT 09/12/2017 1:29 PM EST BASIC METABOLIC PANEL STAT 09/12/2017 1:29 PM EST EKG 12-LEAD STAT 09/12/2017 12:19 PM EST CARDIAC CATH SCAN 09/12/2017 12: 00 AM EST documented in this encounter Results * POCT Glucose (09/14/2017 7:32 AM EST) Glucose, POC 158 65 - 199 mg/dL [facility] Comment: Supplemental ranges: <140 mg/dL before meals <180 mg/dL all other times of the day Blood specimen (specimen) 09/14/2017 7:32 AM EST 09/14/2017 7:32 AM EST Christos Buchanan MD POINT OF CARE TEST O [place] [address] * Differential, Automated (09/14/2017 3:40 AM EST) Neutrophil % 51.2 % [facility] Neutrophil Absolute 4.61 1.70 - 6.10 x10(3)/[facility] Lymph % 34.3 % [facility] Lymphocytes Abs 3.1 0.9 - 3.2 x10(3)/[facility] Monocyte % 8.6 % [facility] Monocyte Abs 0.8 0.3 - 0.9 x10(3)/[facility] Eos % 4.6 % [facility] Eosinophils Abs 0.4 0.0 - 0.4 x10(3)/[facility] Basophil % 0.9 % [facility] Baso Absolute 0.1 0.0 - 0.1 x10(3)/[facility] Immature Gran % 0.40 % [facility] Comment: Immature granulocytes(IG's)percentage and absolute count will include metamyelocytes, myelocytes, and promyelocytes. Blood smears from CBCs yielding IG's will be scanned manually for concordance. If this scan disagrees with the automated IG or if promyelocytes are noted, a manual differential will be performed. Immature Gran Absolute 0.04 0.00 - 0.04 x10(3)/[facility] Blood specimen (specimen) 09/14/2017 3:40 AM EST 09/14/2017 4:08 AM EST Narrative Resulting Agency Comment Spec In Lab Christos Buchanan MD [place] [address] * Hemogram (09/14/2017 3:40 AM EST) White Blood Cell 9.0 4.0 - 9.5 x10(3)/[facility] Red Blood Cell 5.28 4.58 - 5.54 x10(6)/[facility] Hemoglobin 15.0 13.7 - 16.5 gm/dL [facility] Hematocrit 45.8 40.5 - 48.5 % [facility] Mean Cell Volume 86.7 82.9 - 93.1 fL [facility] Mean Cell Hemoglobin 28.4 27.5 - 32.1 pg [facility] Mean Cell Hemoglobin Concentration 32.8 32.0 - 35.7 gm/dL [facility] Platelet 188 145 - 357 x10(3)/[facility] RDW Standard Deviation 43.6 36.0 - 45.0 [facility] RDW coefficient of variation 13.7 11.4 - 13.8 % [facility] Mean Platelet Volume 10.4 7.6 - 12.9 fL [facility] NRBC% auto 0.0 % [facility] NRBC Absolute 0.000 0.000 - 0.000 x10(3)/[facility] Blood specimen (specimen) 09/14/2017 3:40 AM EST 09/14/2017 4:08 AM EST Narrative Resulting Agency Comment Spec In Lab Christos Buchanan MD HEMATOLOGY ORDERABLE S [facility] [place] [address] * Prothrombin Time (09/14/2017 3:40 AM EST) Prothrombin Time 13.3 11.8 - 14.0 sec [facility] International Normalization Ratio 1.0 0.9 - 1.1 [facility] Comment: An INR <2.0 indicates adequate procoagulant activity for hemostasis in most patients without underlying bleeding disorders, though the INR may not adequately reflect hemostatic capacity in patients with liver disease and synthetic impairment. The recommended target INR range for therapeutic anticoagulation is 2.0 ? 3.0 for most applications, though lower and higher ranges may be appropriate depending on clinical circumstances. Blood specimen (specimen) 09/14/2017 3:40 AM EST 09/14/2017 4:08 AM EST Narrative Resulting Agency Comment Spec In Lab Christos Buchanan MD HEMATOLOGY ORDERABLE S Performing Organization Address [facility] Co de Phone Number [facility] [place] [address] * Magnesium (09/14/2017 3:40 AM EST) Magnesium 0.83 0.69 - 1.07 mmol/L [facility] Blood specimen (specimen) 09/14/2017 3:40 AM EST 09/14/2017 4:08 AM EST Narrative Resulting Agency Comment Spec In Lab Christos Buchanan MD CHEMISTRY ORDERABLES Performing Organization Address [facility] Co de Phone Number [facility] [place] [address] * Basic Metabolic Panel (non-fasting) (09/14/2017 3:40 AM EST) Glucose 108 65 - 199 mg/dL [facility] Comment:Diabetes: >=200 mg/d L plus symptoms Blood Urea Nitrogen 11 10 - 20 mg/dL [facility] Creatinine 1.05 0.80 - 1.50 mg/dL [facility] Sodium 143 135 - 145 mmol/L [facility] Potassium 4.0 3.5 - 5.0 mmol/L [facility] Comment: Please note: ??Patients with WBC >100,000 may have falsely elevated Potassium levels. ??For accurate Potassium quantification in these patients send serum separator tube (gold top) for subsequent determinations. ??Contact the Clinical Chemistry Laboratory if there are any questions. Chloride 106 98 - 107 mmol/L [facility] Carbon Dioxide 22 22 - 31 mmol/L [facility] Anion Gap 15 5 - 15 mmol/L [facility] Calcium 9.2 8.5 - 10.5 mg/dL [facility] Est Glomerular Filtration Rate >60 >=60 [facility] Comment: The reported eGFR should be multiplied by 1.2 for patients. The MDRD is not an appropriate measure of renal function for patients with body mass extremes or in patients with acute kidney failure. [email or web address] [email or web address]/DHMCnkf Blood specimen (specimen) 09/14/2017 3:40 AM EST 09/14/2017 4:08 AM EST Narrative Resulting Agency Comment Spec In Lab Christos Buchanan MD CHEMISTRY ORDERABLES Performing Organization Address [facility] Co de Phone Number [facility] [place] [address] * SCAN DOC: LINKING MACHINE OPERATOR (09/14/2017 12:00 AM EST) Anatomical Region Laterality Modality Other Narrative 09/14/2017 12:00 AM EST Ordered by an unspecified provider. Scanning Provider MEDIA MGR SCAN EXT O RDR/RSLT * POCT Glucose (09/13/2017 7:50 PM EST) Glucose, POC 113 65 - 199 mg/dL [facility] Comment: Supplemental ranges: <140 mg/dL before meals <180 mg/dL all other times of the day Blood specimen (specimen) 09/13/2017 7:50 PM EST 09/13/2017 7:50 PM EST Christos Buchanan MD POINT OF CARE TEST O RDERABLES Performing Organization Address [facility]/ZIP Co de Phone Number [facility] [place] [address] * POCT Glucose (09/13/2017 4:58 PM EST) Glucose, POC 138 65 - 199 mg/dL [facility] Comment: Supplemental ranges: <140 mg/dL before meals <180 mg/dL all other times of the day Blood specimen (specimen) 09/13/2017 4:58 PM EST 09/13/2017 4:58 PM EST Christos Buchanan MD POINT OF CARE TEST O RDERABLES Performing Organization Address [facility]/State/ZIP Co de Phone Number [facility] [place] [address] * ECHO LMTD W/O CONTRAST W LMTD SPEC DOPP COLOR DOPP (09/13/2017 2:44 PM EST) EF 65 HEARTLAB SYSTEM Anatomical Region Laterality Modality Other 09/13/2017 Narrative 09/13/2017 3:16 PM EST Procedure: ?Transthoracic Echocardiogram Patient: ?LAQUITA Pop ? (Age): 1965(52y) Med Rec#: ? [id number] ?Sex: ?M ? Site Loc: ? [facility] ?Ht / Wt: ??180.3(cm)/101.6 Pt. Loc: ?Adult Floor ? BSA: ?2.21 Study Date: ?? 09/13/2017 ?Pt. Type: Outpatient Tape: ? 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 101/60 SUMMARY: 1. Mild concentric left ventricular hypertrophy is observed. ??There is normal global left ventricular systolic function. ??Ejection fraction is estimated to be 65%. ??There are no left ventricular segmental wall motion abnormalities. 2. The right ventricle is normal in size. ??Right ventricular global systolic function is normal. 3. There is no hemodynamically significant valve disease. 4. See remainder of report for additional findings. Findings ? : Study Quality: ? Technically limited Left Ventricle: ? The left ventricular chamber size is normal. ?Mild concentric left ventricular hypertrophy is observed. ?There is normal global left ventricular systolic function. ??Ejection fraction is estimated to be 65%. ?There are no left ventricular segmental wall motion abnormalities. Right Ventricle: ? The right ventricle is normal in size. ?Right ventricular global systolic function is normal. ?Pulmonary artery hypertension could not be assessed due to inadequate tricuspid regurgitation jet. Aortic Valve: ? The aortic valve is probably tricuspid. ?There is no evidence of aortic valve stenosis. ?There is no evidence of aortic regurgitation. Mitral Valve: ? The mitral valve appears normal in structure and function. Tricuspid Valve: ? The tricuspid valve appears normal in structure and function. Pericardium: ? There is no pericardial effusion. ?A pericardial fat pad is visualized. Aorta: ? The aortic root is normal in size. ?The ascending aorta is normal in size. Venous: ? The inferior vena cava appears normal in size. ?There is a greater than 50% respiratory change in the inferior vena cava dimension. Misc: ? There is no hemodynamically significant valve disease. ?See remainder of report for additional findings. ?Two-dimensional echo, limited spectral Doppler and color Doppler performed. Chambers 2D ?Value ?Units (Range) ? IVSd (2D) ? 0.9 ?cm ? LVPWd (2D) ?1.1 ?cm ? IVS:LVPW ratio (2D) 0.8 ?ratio ? RWT (2D) ?0.5 ?ratio ? RWT PW (2D) ? 0.5 ?ratio ? LVIDd (2D) ?4.4 ?cm ? LVIDs (2D) ?3.4 ?cm ? LVIDd (2D) index ?2 ?cm/m2 ? LVIDs (2D) index ?1.6 ?cm/m2 ? LV FS (2D) ?22 ? % ? EF Teichholz (2D) ?? 45 ? % ? Ao root diameter (2D3.5 ?cm (2.1 - 3.6) ? Ascending Ao ?3.5 ?cm (2 - 3.5) ? Volumes/Mass ?Value ?Units (Range) ? LV mass (2D) ?156.6 ?g ? LV mass (2D) index ??70.9 ? g/m2 ? Diastolic/Systolic Function ?Value ?Units (Range) ? MV E-wave Vmax ?0.6 ?m/sec ? MV deceleration vabp340.5 ?msec ? MV A-wave Vmax ?0.5 ?m/sec ? MV E:A ratio ?1.1 ?ratio ? LV septal e' Vmax ?? 0.1 ?m/sec ? LV lateral e' Vmax ??0.1 ?m/sec ? LV average e' Vmax ??0.1 ?m/sec ? LV E:e' septal ratio6.9 ?ratio ? LV E:e' lateral rati6.9 ?ratio ? LV average E:e' rati6.9 ?ratio ? Tricuspid Valve ?Value ?Units (Range) ? RAP ? 3 ?mmHg ? Wall Motion: Segment Name ?Rest ? Base-Anteroseptal ?? Normal ? Base-Anterior ? Normal ? Base-Anterolateral ??Normal ? Base-Posterolateral Normal ? Base-Inferior ? Normal ? Base-Inferoseptal ?? Normal ? Mid-Anteroseptal ?Normal ? Mid-Anterior ?Normal ? Mid-Anterolateral ?? Normal ? Mid-Posterolateral ??Normal ? Mid-Inferior ?Normal ? Mid-Inferoseptal ?Normal ? Mcrae-Septal ? Normal ? Mcrae-Anterior ? Normal ? Mcrae-Lateral ?Normal ? Mcrae-Inferior ? Normal ? Mcrae-Tip ?Normal ? This report has been electronically signed by: Christos Buchanan M.D. ? 09/13/2017 15:16:25 Images reviewed and interpretation verified [facility] Cardiac Ultrasound Laboratory Procedure Note Christos Buchanan MD - 09/13/2017 Procedure: Transthoracic Echocardiogram Patient: LAQUITA Pop DOB(Age): 1965(52y) Med Rec#: [id number] Sex: M Site Loc: [facility] Ht / Wt: 180.3(cm)/101.6 Pt. Loc: Adult Floor BSA: 2.21 Study Date: 09/13/2017 Pt. Type: Outpatient Tape: Referring: Christos Buchanan ([id number]) Reading: Christos Buchanan ([id number]) Agriscience Teacher: Meaghan Kim Diagnosis: *ICD-10-PCS Atherosclerotic heart disease of qagan tayag[place] coronary artery without angina pectoris (I25.10) BP: 101/60 SUMMARY: 1. Mild concentric left ventricular hypertrophy is [...] for additional findings. Findings : Study Quality: Technically limited Left Ventricle: The left ventricular chamber size is normal. Mild concentric left ventricular hypertrophy is observed. There is normal global left ventricular systolic function. Ejection fraction is estimated to be 65%. There are no left ventricular segmental wall motion abnormalities. Right Ventricle: The right ventricle is normal in size. Right ventricular global systolic function is normal. Pulmonary artery hypertension could not be assessed due to inadequate tricuspid regurgitation jet. Aortic Valve: The aortic valve is probably tricuspid. There is no evidence of aortic valve stenosis. There is no evidence of aortic regurgitation. Mitral Valve: The mitral valve appears normal in structure and function. Tricuspid Valve: The tricuspid valve appears normal in structure and function. Pericardium: There is no pericardial effusion. A pericardial fat pad is visualized. Aorta: The aortic root is normal in size. The ascending aorta is normal in size. Venous: The inferior vena cava appears normal in size. There is a greater than 50% respiratory change in the inferior vena cava dimension. Misc: There is no hemodynamically significant valve disease. See remainder of report for additional findings. Two-dimensional echo, limited spectral Doppler and color Doppler performed. Chambers 2D Value Units (Range) IVSd (2D) 0.9 cm LVPWd (2D) 1.1 cm IVS:LVPW ratio (2D) 0.8 ratio RWT (2D) 0.5 ratio RWT PW (2D) 0.5 ratio LVIDd (2D) 4.4 cm LVIDs (2D) 3.4 cm LVIDd (2D) index 2 cm/m2 LVIDs (2D) index 1.6 cm/m2 LV FS (2D) 22 % EF Teichholz (2D) 45 % Ao root diameter (2D3.5 cm (2.1 - 3.6) Ascending Ao 3.5 cm (2 - 3.5) Volumes/Mass Value Units (Range) LV mass (2D) 156.6 g LV mass (2D) index 70.9 g/m2 Diastolic/Systolic Function Value Units (Range) MV E-wave Vmax 0.6 m/sec MV deceleration gbrt459.5 msec MV A-wave Vmax 0.5 m/sec MV E:A ratio 1.1 ratio LV septal e' Vmax 0.1 m/sec LV lateral e' Vmax 0.1 m/sec LV average e' Vmax 0.1 m/sec LV E:e' septal ratio6.9 ratio LV E:e' lateral rati6.9 ratio LV average E:e' rati6.9 ratio Tricuspid Valve Value Units (Range) RAP 3 mmHg Wall Motion: Segment Name Rest Base-Anteroseptal Normal Base-Anterior Normal Base-Anterolateral Normal Base-Posterolateral Normal Base-Inferior Normal Base-Inferoseptal Normal Mid-Anteroseptal Normal Mid-Anterior Normal Mid-Anterolateral Normal Mid-Posterolateral Normal Mid-Inferior Normal Mid-Inferoseptal Normal Mcrae-Septal Normal Mcrae-Anterior Normal Mcrae-Lateral Normal Mcrae-Inferior Normal Mcrae-Tip Normal This report has been electronically signed by: Christos Buchanan M.D. 09/13/2017 15:16:25 Images reviewed and interpretation verified [facility] Cardiac Ultrasound Laboratory Christos Buchanan MD ECHO ORDERABLES * POCT Glucose (09/13/2017 11:32 AM EST) Glucose, POC 104 65 - 199 mg/dL [facility] Comment: Supplemental ranges: <140 mg/dL before meals <180 mg/dL all other times of the day Blood specimen (specimen) 09/13/2017 11:32 AM EST 09/13/2017 11:32 AM EST Christos Buchanan MD POINT OF CARE TEST O RDERABLES Performing Organization Address City/State/[facility] Co de Phone Number [facility] [place] [address] * CARDIAC CATHETERIZATION (09/13/2017 11:09 AM EST) Anatomical Region Laterality Modality Other Narrative 09/13/2017 11:33 AM EST ?[facility] ? Cardiac Catheterization/Intervention Report ? Patient Name: Laquita, Romeo A. ? Procedure Date: 09/13/2017 ? A #: [id number] ? Primary Physician: Agusto Ball W ? Case #: [id number] ? File Name: [id number] ? Catheterization Order Number: [id number] ? [facility] ? Final Report [place], [place] ? Patient Name: ? Romeo A. Coe ? ID#: ?[id number] ? : ?1965 ? Procedure Date: ? September 13, 2017 ? Case #: ? [id number] ? Room: ? 5 ? Case Physician: ? Agusto Ball M.D. ?Start: ?10:10 ?Fellow: ? Macey Salamanca M.D. ? Admission: ??09/13/2017 ? Referring Physician: ??Coni Lim M.D. ? Procedures: ?* Coronary Angiography ?* Left Heart Catheterization ?* Coronary Instantaneous Wave-Free Ratio (iFR) ?* Vascular Closure Device Deployment ?* Access Site Angiography ? History ?Romeo Coe is a 52 year old man. He has hypertension and a family ?history of coronary artery disease. The patient has a history of smoking ?(45 pack years) and is still smoking. He has diabetes managed with oral ?medication. The patient has unstable angina, negative troponin, a history ?of chest pain and a prior history of coronary artery disease. He is ?status post a remote myocardial infarction. The patient had a remote ?coronary intervention procedure. He also has a history of transient ?ischemic attacks. Prior to the initiation of this procedure, the patient ?was designated as ASA Class III. ? Patient Status at Catheterization: ?The patient presented with: unstable angina (w/i 60 days). [place] ?Cardiovascular Society angina class was IV. This patient was on beta ?blockers, nitrates and ranolazine prior to the procedure. No stress or ?imaging studies were performed prior to this procedure ? Technique: ?A 6Fr sheath was inserted in the right femoral artery utilizing the ?Seldinger technique. The left coronary artery was injected utilizing a ?6Fr JL 4 catheter. A 6Fr JR 4 catheter was used to inject the right ?coronary artery. Left ventricular pressure was performed with a 6Fr ?Angled pigtail catheter. 8,000 units of heparin were administered. A ?total of 200cc of Omnipaque were opened, 175cc of Omnipaque were ?administered and 25cc of Omnipaque were wasted. Radiation: Fluoro time ?was 15.1 minutes, dose area product was 90,730 mGYcm2 and air kerma was ?1,983 mGY. ?The patient received the following medications prior to and during the ?procedure: Aspirin (any), Clopidogrel and Unfractionated Heparin (any). ? Hemodynamics: ?Left Heart Pressures ? Resting: ? Syst Diast ? EDP ?a ?v ? m ?Ao 100 ?? 68 ?84 ?LV 98 ?9 ? Post Contrast: ? Syst Diast ? EDP ?a ?v ? m ?Ao 98 ?68 ?80 ?LV 98 ?9 ? Coronary Angiography: ?Dominance: Right ?Left Main ? The left main was normal. ?Left Anterior Descending ? There was mild diffuse disease of the entire vessel segment of the ? left anterior descending artery (LAD). ??The mid segment of the LAD ? had a hazy single discrete 40% stenosis. ??The previously placed ? stent is patent. ?Left Circumflex ? There was mild diffuse disease of the entire vessel segment of the ? left circumflex artery (LCX). ??The previously placed stent is ? patent. ?Right Coronary Artery ? There was mild diffuse disease of the entire vessel segment of the ? right coronary artery (RCA). ??The proximal segment of the RCA had ? mild diffuse disease. ??The previously placed stent is patent. There ? also was moderate diffuse disease of the distal 1 segment of the ? RCA. ??The distal 2 segment of the RCA was ectatic. ? There was a 45% stenosis of the ostial segment of the right ? posterior descending branch (RPDA) of the RCA. ? Intravascular Imaging/Physiology: ?Instantaneous wave-free ratio (iFR) was determined across the 45% ?stenosis in the ostial RPDA using a 6 Fr JR 4 guiding catheter and a ?Verrata wire. ??Wire delivery was successful. ??The IFR across the 45% ?ostial RPDA lesion was 0.97. ??This lesion was not hemodynamically ?significant. ?Instantaneous wave-free ratio (iFR) was determined across the 40% ?stenosis in the mid LAD using a 6 Fr EBU 3.5 guiding catheter and a ?Verrata wire. ??Wire delivery was successful. ??The IFR across the 40% mid ?LAD lesion was 0.95. ??This lesion was not hemodynamically significant. ? Vascular Access: ?Vascular Access Angiogram: ? A selective angiogram at the right femoral artery revealed no ? significant obstructive disease. ?Vascular Access Management: ? A 6 Fr Perclose was deployed at the right femoral artery access ? site. ? Conclusions: ?* One vessel coronary artery disease (RCA) ?* IFR acorss proximal RPDA stenosis 0.97 (not significant). ?* IFR acorss mid LAD stenosis 0.95 (not significant). ? Complications/Events: ?The patient had no complications during these procedures. ?The attending physician was present for the entire procedure. ?Dr. Agusto Ball M.D. was present during the moderate sedation ?intraservice time as documented by the sedation nurse. ??Case time = 00:52. ?Dr. Agusto Ball M.D. performed the coronary angiography, left heart ?catheterization, access site angiography, vascular closure device and ?IFR-coronary. ? Agusto Ball M.D. ? Electronically Signed by: Agusto Ball M.D. ? Report Finalized: 09/13/2017 ??11:30 ? Report Last Ammended: 09/14/2017 ??07:01 ? Procedure Note Agusto Ball II, MD - 09/14/2017 [facility] Cardiac Catheterization/Intervention Report Patient Name: Romeo Coe Procedure Date: 09/13/2017 A #: [id number] Primary Physician: Agusto Ball Case #: [id number] File Name: [id number] Catheterization Order Number: [id number] [facility] FinalReport [place], [place] Patient Name: Romeo Coe ID#:[id number] :1965 Procedure Date: September 13, 2017 Case #: [id number] Room: 5 Case Physician: Agusto Ball M.D. Start: 10:10 Fellow: Macey Salamanca M.D. Admission:09/13/2017 Referring Physician: Coni Lim M.D. Procedures: * Coronary Angiography * Left Heart Catheterization * Coronary Instantaneous Wave-Free Ratio (iFR) * Vascular Closure Device Deployment * Access Site Angiography History Romeo Coe is a 52 year old man. He has hypertension and afamily history of coronary artery disease. The patient has a history ofsmoking (45 pack years) and is still smoking. He has diabetes managed withoral medication. The patient has unstable angina, negative troponin, ahistory of chest pain and a prior history of coronary artery disease. He is status post a remote myocardial infarction. The patient had a remote coronary intervention procedure. He also has a history of transient ischemic attacks. Prior to the initiation of this procedure, thepatient was designated as ASA Class III. Patient Status at Catheterization: The patient presented with: unstable angina (w/i 60 days). [place] Cardiovascular Society angina class was IV. This patient was on beta blockers, nitrates and ranolazine prior to the procedure. No stressor imaging studies were performed prior to this procedure Technique: A 6Fr sheath was inserted in the right femoral artery utilizing the Seldinger technique. The left coronary artery was injected utilizinga 6Fr JL 4 catheter. A 6Fr JR 4 catheter was used to inject the right coronary artery. Left ventricular pressure was performed with a 6Fr Angled pigtail catheter. 8,000 units of heparin were administered. A total of 200cc of Omnipaque were opened, 175cc of Omnipaque were administered and 25cc of Omnipaque were wasted. Radiation: Fluorotime was 15.1 minutes, dose area product was 90,730 mGYcm2 and air kermawas 1,983 mGY. The patient received the following medications prior to and duringthe procedure: Aspirin (any), Clopidogrel and Unfractionated Heparin(any). Hemodynamics: Left Heart Pressures Resting: Syst Diast EDP a v m Ao 100 68 84 LV 98 9 Post Contrast: Syst Diast EDP a v m Ao 98 68 80 LV 98 9 Coronary Angiography: Dominance: Right Left Main The left main was normal. Left Anterior Descending There was mild diffuse disease of the entire vessel segment ofthe left anterior descending artery (LAD). The mid segment of theLAD had a hazy single discrete 40% stenosis. The previously placed stent is patent. Left Circumflex There was mild diffuse disease of the entire vessel segment ofthe left circumflex artery (LCX). The previously placed stent is patent. Right Coronary Artery There was mild diffuse disease of the entire vessel segment ofthe right coronary artery (RCA). The proximal segment of the RCAhad mild diffuse disease. The previously placed stent is patent.There also was moderate diffuse disease of the distal 1 segment ofthe RCA. The distal 2 segment of the [...] delivery was successful. The IFR across the 40%mid LAD lesion was 0.95. This lesion was not hemodynamicallysignificant. Vascular Access: Vascular Access Angiogram: A selective angiogram at the right femoral artery revealed no significant obstructive disease. Vascular Access Management: A 6 Fr Perclose was deployed at the right femoral artery access site. Conclusions: * One vessel coronary artery disease (RCA) * IFR acorss proximal RPDA stenosis 0.97 (not significant). * IFR acorss mid LAD stenosis 0.95 (not significant). Complications/Events: The patient had no complications during these procedures. The attending physician was present for the entire procedure. Dr. Agusto Ball M.D. was present during the moderate sedation intraservice time as documented by the sedation nurse. Case time =00:52. Dr. Agusto Ball M.D. performed the coronary angiography, leftheart catheterization, access site angiography, vascular closure device and IFR-coronary. Agusto Ball M.D. Electronically Signed by: Agusto Ball M.D. Report Finalized: 09/13/2017 11:30 Report Last Ammended: 09/14/2017 07:01 Christos Buchanan MD CARDIAC CATH ORDERAB LES * EKG 12 Lead (09/13/2017 7:49 AM EST) Ventricular rate 72 BPM MUSE SYSTEM Atrial Rate 72 BPM MUSE SYSTEM P-R Interval 138 ms MUSE SYSTEM QRS Duration 86 ms MUSE SYSTEM Q-T Interval 380 ms MUSE SYSTEM QTC Calculated (Bezet) 416 ms MUSE SYSTEM Calculated P Giddings 5 degrees MUSE SYSTEM Calculated R Giddings 23 degrees MUSE SYSTEM Calculated T Giddings 28 degrees MUSE SYSTEM INTERPRETATION Normal sinus rhythm Normal ECG When compared with ECG of 12-SEP-2017 12:19, No significant change was found Confirmed by MD Segundo, Panda Leyva ([id number]) on 09/14/2017 9:09:15 AM MUSE SYSTEM 09/13/2017 7:49 AM EST 09/14/2017 9:09 AM EST Christos Buchanan MD ECG ORDERABLES MUSE SYSTEM * POCT Glucose (09/13/2017 7:24 AM EST) Glucose, POC 152 65 - 199 mg/dL [facility] Comment: Supplemental ranges: <140 mg/dL before meals <180 mg/dL all other times of the day Blood specimen (specimen) 09/13/2017 7:24 AM EST 09/13/2017 7:24 AM EST Christos Buchanan MD POINT OF CARE TEST O RDERABLES Performing Organization Address [facility]/ZIP Co de Phone Number [facility] [place] [address] * (ABNORMAL) BMP w/fasting Glucose (09/13/2017 6:32 AM EST) Glucose Fasting 157(H) 65 - 99 mg/dL [facility] Comment: ?Fasting* Glucose Interpretive Criteria [...] of Diabetes Mellitus, Position Statement from the [place] Diabetes Association. ??Diabetes Care, Volume 33, Supplement 1, Aug 2009 Blood Urea Nitrogen 11 10 - 20 mg/dL [facility] Creatinine 0.99 0.80 - 1.50 mg/dL [facility] Sodium 142 135 - 145 mmol/L [facility] Potassium 3.7 3.5 - 5.0 mmol/L [facility] Comment: Please note: ??Patients with WBC >100,000 may have falsely elevated Potassium levels. ??For accurate Potassium quantification in these patients send serum separator tube (gold top) for subsequent determinations. ??Contact the Clinical Chemistry Laboratory if there are any questions. Chloride 106 98 - 107 mmol/L [facility] Carbon Dioxide 21(L) 22 - 31 mmol/L [facility] Anion Gap 15 5 - 15 mmol/L [facility] Calcium 9.4 8.5 - 10.5 mg/dL [facility] Est Glomerular Filtration Rate >60 >=60 [facility] Comment: The reported eGFR should be multiplied by 1.2 for patients. The MDRD is not an appropriate measure of renal function for patients with body mass extremes or in patients with acute kidney failure. http://Harri/DHnkdep http://Harri/[facility]AH[facility]QUAHnkf Blood specimen (specimen) 09/13/2017 6:32 AM EST 09/13/2017 6:41 AM EST Narrative Resulting Agency Comment Spec In Lab Christos Buchanan MD CHEMISTRY ORDERABLES Performing Organization Address [facility] Co de Phone Number [facility] [place] [address] * (ABNORMAL) APTT (09/13/2017 6:32 AM EST) [facility] Partial Thromboplastin Time 113(H) 25 - 35 sec [facility] Comment: The recommended therapeutic range for full dose, unfractionated heparin at [facility] is 80 ? 114 seconds. The use of the anti-Xa (heparin) level rather than the PTT is recommended for monitoring anticoagulation intensity in critically ill patients receiving unfractionated heparin by continuous IV infusion. Blood specimen (specimen) 09/13/2017 6:32 AM EST 09/13/2017 6:41 AM EST Narrative Resulting Agency Comment Spec In Lab Christos Buchanan MD HEMATOLOGY ORDERABLE S Performing Organization Address City/[facility]/ZIP Co de Phone Number [facility] [place] [address] * Differential, Automated (09/13/2017 6:32 AM EST) Neutrophil % 64.9 % [facility] Neutrophil Absolute 5.94 1.70 - 6.10 x10(3)/[facility] LABORATORY Lymph % 24.7 % [facility] Lymphocytes Abs 2.3 0.9 - 3.2 x10(3)/[facility] LABORATORY Monocyte % 5.3 % [facility] Monocyte Abs 0.5 0.3 - 0.9 x10(3)/[facility] LABORATORY Eos % 4.0 % [facility] Eosinophils Abs 0.4 0.0 - 0.4 x10(3)/[facility] LABORATORY Basophil % 0.7 % [facility] Baso Absolute 0.1 0.0 - 0.1 x10(3)/[facility] LABORATORY Immature Gran % 0.40 % [facility] Comment: Immature granulocytes(IG's)percentage and absolute count will include metamyelocytes, myelocytes, and promyelocytes. Blood smears from CBCs yielding IG's will be scanned manually for concordance. If this scan disagrees with the automated IG or if promyelocytes are noted, a manual differential will be performed. Immature Gran Absolute 0.04 0.00 - 0.04 x10(3)/[facility] LAB[facility]ATORY Blood specimen (specimen) 09/13/2017 6:32 AM EST 09/13/2017 6:41 AM EST Narrative Resulting Agency Comment Spec In Lab Christos Buchanan MD HEMATOLOGY ORDERABLE S [facility] [place] [address] * Hemogram (09/13/2017 6:32 AM EST) White Blood Cell 9.2 4.0 - 9.5 x10(3)/[facility] LABORATORY Red Blood Cell 5.29 4.58 - 5.54 x10(6)/[facility] Hemoglobin 15.4 13.7 - 16.5 gm/dL [facility] Hematocrit 44.9 40.5 - 48.5 % [facility] Mean Cell Volume 84.9 82.9 - 93.1 fL [facility] Mean Cell Hemoglobin 29.1 27.5 - 32.1 pg [facility] Mean Cell Hemoglobin Concentration 34.3 32.0 - 35.7 gm/dL [facility] Platelet 186 145 - 357 x10(3)/[facility] LABORATORY RDW Standard Deviation 42.9 36.0 - 45.0 fL [facility] RDW coefficient of variation 13.8 11.4 - 13.8 % [facility] Mean Platelet Volume 10.3 7.6 - 12.9 fL [facility] NRBC% auto 0.0 % [facility] NRBC Absolute 0.000 0.000 - 0.000 x10(3)/[facility] Blood specimen (specimen) 09/13/2017 6:32 AM EST 09/13/2017 6:41 AM EST Narrative Resulting Agency Comment Spec In Lab Christos Buchanan MD HEMATOLOGY ORDERABLE S Performing Organization Address [facility] Co de Phone Number [facility] [place] [address] * Blood culture (09/13/2017 6:32 AM EST) Blood Culture No growth at 5 days. [facility] Blood specimen (specimen) 09/13/2017 6:32 AM EST 09/13/2017 7:17 AM EST Comment:L FOREARM Narrative Resulting Agency Comment Spec In Lab Christos Buchanan MD MICROBIOLOGY - BLOOD ORDERABLES Performing Organization Address [facility] Co de Phone Number [facility] [place] [address] * Prothrombin Time (09/13/2017 6:32 AM EST) Prothrombin Time 13.8 11.8 - 14.0 sec [facility] International Normalization Ratio 1.1 0.9 - 1.1 [facility] Comment: An INR <2.0 indicates adequate procoagulant activity for hemostasis in most patients without underlying bleeding disorders, though the INR may not adequately reflect hemostatic capacity in patients with liver disease and synthetic impairment. The recommended target INR range for therapeutic anticoagulation is 2.0 ? 3.0 for most applications, though lower and higher ranges may be appropriate depending on clinical circumstances. Blood specimen (specimen) 09/13/2017 6:32 AM EST 09/13/2017 6:41 AM EST Narrative Resulting Agency Comment Spec In Lab Christos Buchanan MD HEMATOLOGY ORDERABLE S Performing Organization Address [facility] Co de Phone Number [facility] [place] [address] * Magnesium (09/13/2017 6:32 AM EST) Magnesium 0.84 0.69 - 1.07 mmol/L [facility] Blood specimen (specimen) 09/13/2017 6:32 AM EST 09/13/2017 6:41 AM EST Narrative Resulting Agency Comment Spec In Lab Christos Buchanan MD CHEMISTRY ORDERABLES Performing Organization Address [facility] Co de Phone Number [facility] [place] [address] * Triglyceride (09/13/2017 6:32 AM EST) Triglyceride 153 <=199 mg/dL [facility] Blood specimen (specimen) 09/13/2017 6:32 AM EST 09/13/2017 6:41 AM EST Narrative Resulting Agency Comment Spec In Lab Christos Buchanan MD CHEMISTRY ORDERABLES Performing Organization Address [facility] Co de Phone Number [facility] [place] [address] * HDL/Cholesterol Profile (09/13/2017 6:32 AM EST) Cholesterol, Total 162 <=239 mg/dL [facility] HDL Cholesterol 44 >=40 mg/dL [facility] Cholesterol/HDL Ratio 3.7 ratio [facility] Chol/HDL Interpretation See Note [facility] Comment: Lipid management should be guided by a patient? s ASCVD risk, goals and preferences. ACC/AHA Guidelines recommend high intensity statin if clinical ASCVD or LDL greater than or equal to 190 mg/dL. http://NPC III.com/FOJ-SCR-Zzivrkabm Measure LDL if Total Cholesterol minus HDL Cholesterol is greater than 220 mg/dL. Adults aged 40-75 with LDL 70-189 mg/dL should have their 10 year ASCVD risk estimated with the ACC/AHA ASCVD risk lumber estimator http://tools.acc.org/UWEFB-Kupy-Jqbxavkah/ Statin should be discussed if risk greater than or equal to 7.5% in non-diabetics. With diabetes, moderate intensity statin is recommended if risk less than 7.5%, high intensity if risk greater than or equal to 7.5%. Annual lipid monitoring on statins is not necessary. Lifestyle modification is a critical component of ASCVD risk reduction. Blood specimen (specimen) 09/13/2017 6:32 AM EST 09/13/2017 6:41 AM EST Narrative Resulting Agency Comment Spec In Lab Christos Buchanan MD CHEMISTRY ORDERABLES Performing Organization Address City/State/[facility] Co de Phone Number [facility] [place] [address] * LDL Cholesterol, Direct (09/13/2017 6:32 AM EST) LDL Cholesterol, Direct 102 <=190 mg/dL [facility] Blood specimen (specimen) 09/13/2017 6:32 AM EST 09/13/2017 6:41 AM EST Narrative Resulting Agency Comment Spec In Lab Christos Buchanan MD CHEMISTRY ORDERABLES [facility] [place] [address] * (ABNORMAL) Hemoglobin A1c (09/13/2017 6:32 AM EST) Hemoglobin A1c 6.4(H) 4.3 - 5.6 % [facility] Comment: Reference Range: 4.3 - [...] Mellitus, Diabetes Care 2013; 36: Suppl. 1, N87-97 Estimated Average Glucose 137 mg/dL [facility] Comment: eAG equivalents for HbA1c [...] into estimated average glucose values. ??Diabetes Care 2008:31(8):1424-9850. Blood specimen (specimen) 09/13/2017 6:32 AM EST 09/13/2017 6:41 AM EST Narrative Resulting Agency Comment Spec In Lab Christos Buchanan MD CHEMISTRY ORDERABLES Performing Organization Address [facility] Co de Phone Number [facility] [place] [address] * pro-Brain Natriuretic Peptide (09/13/2017 6:32 AM EST) NT-proBNP 15 <=125 pg/mL [facility] Blood specimen (specimen) 09/13/2017 6:32 AM EST 09/13/2017 6:41 AM EST Narrative Resulting Agency Comment Spec In Lab Christos Buchanan MD CHEMISTRY ORDERABLES Performing Organization Address [facility] Phone Number [facility] [place] [address] * (ABNORMAL) APTT (09/13/2017 12:13 AM EST) Partial Thromboplastin Time 50(H) 25 - 35 sec [facility] Comment: The recommended therapeutic range for full dose, unfractionated heparin at [facility] is 80 ? 114 seconds. The use of the anti-Xa (heparin) level rather than the PTT is recommended for monitoring anticoagulation intensity in critically ill patients receiving unfractionated heparin by continuous IV infusion. Blood specimen (specimen) 09/13/2017 12:13 AM EST 09/13/2017 12:42 AM EST Narrative Resulting Agency Comment Spec In Lab Christos Buchanan MD HEMATOLOGY ORDERABLE S Performing Organization Address [facility] Co de Phone Number [facility] [place] [address] * Cardiac Enzymes (LEB/CGP) (09/13/2017 12:13 AM EST) Troponin-T <0.01 0.00 - 0.00 ng/mL [facility] Comment: The 99th percentile for Troponin T is less than 0.01 ng/mL, any detectable cTnT concentration using this assay should be considered elevated. According to the third universal definition of myocardial infarction the following criteria with a clinical presentation consistent with acute myocardial ischemia meets the diagnosis for a myocardial infarction (AK). Detection of a rise and/or fall of cTnT, with at least one value greater than the 99th percentile (> or = 0.01) and with at least one of the following ?? Symptoms of ischemia ?? New or presumed new significant [place]-xjzbvsb-P wave (ST-T) changes or new left bundle [...] additional sample may be indicated. Reference: Third [place] Definition of Myocardial Infarction. Journal of the [place] College of Cardiology 2012;60:1581-98 Creatine Kinase 55 0 - 200 unit/L [facility] Blood specimen (specimen) 09/13/2017 12:13 AM EST 09/13/2017 12:42 AM EST Narrative Resulting Agency Comment Spec In Lab Christos Buchanan MD CHEMISTRY ORDERABLES [facility] [place] [id number] * SCAN DOC: CARDIAC CATH (09/13/2017 12:00 AM EST) Anatomical Region Laterality Modality Cardiac Other Narrative 09/13/2017 12:00 AM EST Ordered by an unspecified provider. Scanning Provider MEDIA MGR SCAN EXT O RDR/RSLT * POCT Glucose (09/12/2017 9:14 PM EST) Glucose, POC 102 65 - 199 mg/dL [facility] Comment: Supplemental ranges: <140 mg/dL before meals <180 mg/dL all other times of the day Blood specimen (specimen) 09/12/2017 9:14 PM EST 09/12/2017 9:14 PM EST Christos Buchanan MD POINT OF CARE TEST O RDERABLES Performing Organization Address [facility]/ZIP Co de Phone Number [facility] [place] [address] * Cardiac Enzymes (LEB/CGP) (09/12/2017 6:53 PM EST) Troponin-T <0.01 0.00 - 0.00 ng/mL [facility] Comment: The 99th percentile for Troponin T is less than 0.01 ng/mL, any detectable cTnT concentration using this assay should be considered elevated. According to the third universal definition of myocardial infarction the following criteria with a clinical presentation consistent with acute myocardial ischemia meets the diagnosis for a myocardial infarction (AK). Detection of a rise and/or fall of cTnT, with at least one value greater than the 99th percentile (> or = 0.01) and with at least one of the following ?? Symptoms of ischemia ?? New or presumed new significant WV-tdusvrs-O wave (ST-T) changes or new left bundle [...] additional sample may be indicated. Reference: Third [place] Definition of Myocardial Infarction. Journal of the [place] [employer] 2012;60:1581-98 Creatine Kinase 57 0 - 200 unit/L [facility] Blood specimen (specimen) 09/12/2017 6:53 PM EST 09/12/2017 7:02 PM EST Narrative Resulting Agency Comment Spec In Lab Christos Buchanan MD CHEMISTRY ORDERABLES Performing Organization Address [facility]/ZIP Co de Phone Number [facility] [place] [address] * XR Chest PA & Lateral (Generic) (09/12/2017 2:02 PM EST) Anatomical Region Laterality Modality Chest N/A Digital Radiogra phy Impressions 09/12/2017 2:16 PM EST No acute cardiopulmonary disease. Narrative 09/12/2017 2:16 PM EST EXAMINATION: XR CHEST PA AND LATERAL (GENERIC) CLINICAL HISTORY: Chest pain, SOB TECHNIQUE: Chest PA and lateral COMPARISON: November 22, 2016 FINDINGS: The heart is normal in size and the mediastinum has a normal contour. The lungs are clear and costophrenic angles are sharp. No significant bone abnormalities are present. Surgical clips are present in the right upper quadrant of the abdomen. Procedure Note Uriel Rm MD - 09/12/2017 EXAMINATION: XR CHEST PA AND LATERAL (GENERIC) CLINICAL HISTORY: Chest pain, SOB TECHNIQUE: Chest PA and lateral COMPARISON: November 22, 2016 FINDINGS: The heart is normal in size and the mediastinum has a normal contour. The lungs are clear and costophrenic angles are sharp. No significant bone abnormalities are present. Surgical clips are present in the right upper quadrant of the abdomen. IMPRESSION No acute cardiopulmonary disease. Butser Nahomi Bessy [facility] DX ORDERABLES * Prothrombin Time (09/12/2017 1:29 PM EST) Prothrombin Time 13.7 11.8 - 14.0 sec [facility] International Normalization Ratio 1.1 0.9 - 1.1 [facility] Comment: An INR <2.0 indicates adequate procoagulant activity for hemostasis in most patients without underlying bleeding disorders, though the INR may not adequately reflect hemostatic capacity in patients with liver disease and synthetic impairment. The recommended target INR range for therapeutic anticoagulation is 2.0 ? 3.0 for most applications, though lower and higher ranges may be appropriate depending on clinical circumstances. Blood specimen (specimen) Venous Draw / Unknown 09/12/2017 1:29 PM EST 09/12/2017 1:34 PM EST Narrative Resulting Agency Comment Spec In Lab Alejandro Blair MD HEMATOLOGY ORDERAB LES Performing Organization Address [facility] Co de Phone Number [facility] [place] [address] * APTT (09/12/2017 1:29 PM EST) Partial Thromboplastin Time 28 25 - 35 sec [facility] Comment: The recommended therapeutic range for full dose, unfractionated heparin at [facility] is 80 ? 114 seconds. The use of the anti-Xa (heparin) level rather than the PTT is recommended for monitoring anticoagulation intensity in critically ill patients receiving unfractionated heparin by continuous IV infusion. Blood specimen (specimen) Venous Draw / Unknown 09/12/2017 1:29 PM EST 09/12/2017 1:34 PM EST Narrative Resulting Agency Comment Spec In Lab Alejandro Blair MD HEMATOLOGY ORDERAB LES Performing Organization Address [facility] Co de Phone Number [facility] [place] [address] * pro-Brain Natriuretic Peptide (09/12/2017 1:29 PM EST) Pathologist [facility] [place] NT-proBNP 20 <=125 pg/mL [facility] Blood specimen (specimen) Venous Draw / Unknown 09/12/2017 1:29 PM EST 09/12/2017 1:35 PM EST Narrative Resulting Agency Comment Spec In Lab Alejandro Blair MD CHEMISTRY ORDERABL ES Performing Organization Address [facility] Co de Phone Number [facility] [place] [address] * Gold Tube HOLD (09/12/2017 1:29 PM EST) Gold Hold Sample in lab. [facility] Blood specimen (specimen) Venous Draw / Unknown 09/12/2017 1:29 PM EST 09/12/2017 1:34 PM EST Alejandro Blair MD CHEMISTRY ORDERABL ES Performing Organization Address City/[facility]/[place] [address] * Blue Tube HOLD (09/12/2017 1:29 PM EST) Pathologist [facility] [place] Blue Hold Sample in lab. [facility] Blood specimen (specimen) Venous Draw / Unknown 09/12/2017 1:29 PM EST 09/12/2017 1:34 PM EST Alejandro Blair MD HEMATOLOGY ORDERAB LES Performing Organization Address [facility] [place] [address] * Differential, Automated (09/12/2017 1:29 PM EST) Pathologist [facility] [place] Neutrophil % 57.0 % [facility] Neutrophil Absolute 5.07 1.70 - 6.10 x10(3)/[facility] LABORAT[facility] Lymph % 29.7 % [facility] Lymphocytes Abs 2.6 0.9 - 3.2 x10(3)/[facility] Monocyte % 7.8 % [facility] Monocyte Abs 0.7 0.3 - 0.9 x10(3)/[facility] Eos % 4.2 % [facility] Eosinophils Abs 0.4 0.0 - 0.4 x10(3)/[facility] Basophil % 0.8 % [facility] Baso Absolute 0.1 0.0 - 0.1 x10(3)/[facility] LABORATORY Immature Gran % 0.50 % [facility] Comment: Immature granulocytes(IG's)percentage and absolute count will include metamyelocytes, myelocytes, and promyelocytes. Blood smears from CBCs yielding IG's will be scanned manually for concordance. If this scan disagrees with the automated IG or if promyelocytes are noted, a manual differential will be performed. Immature Gran Absolute 0.04 0.00 - 0.04 x10(3)/[facility] Blood specimen (specimen) 09/12/2017 1:29 PM EST 09/12/2017 1:34 PM EST Narrative Resulting Agency Comment Spec In Lab Alejandro Blair MD HEMATOLOGY ORDERAB LES Performing Organization Address City/[facility] Co de Phone Number [facility] [place] [address] * Hemogram (09/12/2017 1:29 PM EST) White Blood Cell 8.9 4.0 - 9.5 x10(3)/[facility] Red Blood Cell 5.07 4.58 - 5.54 x10(6)/[facility] Hemoglobin 14.8 13.7 - 16.5 gm/dL [facility] Hematocrit 43.3 40.5 - 48.5 % [facility] Mean Cell Volume 85.4 82.9 - 93.1 [facility] Mean Cell Hemoglobin 29.2 27.5 - 32.1 pg [facility] Mean Cell Hemoglobin Concentration 34.2 32.0 - 35.7 gm/dL [facility] Platelet 208 145 - 357 x10(3)/[facility] LAB[facility]ATORY RDW Standard Deviation 42.5 36.0 - 45.0 [facility] RDW coefficient of variation 13.7 11.4 - 13.8 % [facility] Mean Platelet Volume 10.4 7.6 - 12.9 [facility] LAB[facility]ATORY NRBC% auto 0.0 % [facility] NRBC Absolute 0.000 0.000 - 0.000 x10(3)/[facility] Blood specimen (specimen) 09/12/2017 1:29 PM EST 09/12/2017 1:34 PM EST Narrative Resulting Agency Comment Spec In Lab Alejandro Blair MD HEMATOLOGY ORDERAB LES Performing Organization Address City/[facility]/ZIP Co de Phone Number [facility] [place] [address] * (ABNORMAL) Basic Metabolic Panel (non-fasting) (09/12/2017 1:29 PM EST) Glucose 113 65 - 199 mg/dL [facility] Comment:Diabetes: >=200 mg/d L plus symptoms Blood Urea Nitrogen 10 10 - 20 mg/dL [facility] Creatinine 0.96 0.80 - 1.50 mg/dL [facility] Sodium 143 135 - 145 mmol/L [facility] Potassium 3.9 3.5 - 5.0 mmol/L [facility] Comment: Please note: ??Patients with WBC >100,000 may have falsely elevated Potassium levels. ??For accurate Potassium quantification in these patients send serum separator tube (gold top) for subsequent determinations. ??Contact the Clinical Chemistry Laboratory if there are any questions. Chloride 106 98 - 107 mmol/L [facility] Carbon Dioxide 20(L) 22 - 31 mmol/L [facility] Anion Gap 17(H) 5 - 15 mmol/L [facility] Calcium 9.2 8.5 - 10.5 mg/dL [facility] Est Glomerular Filtration Rate >60 >=60 [facility] Comment: The reported eGFR should be multiplied by 1.2 for patients. The MDRD is not an appropriate measure of renal function for patients with body mass extremes or in patients with acute kidney failure. http://NPC III.Tranz/DHnkdep http://NPC III.Tranz/DHMCnkf Blood specimen (specimen) 09/12/2017 1:29 PM EST 09/12/2017 1:34 PM EST Narrative Resulting Agency Comment Spec In Lab Alejandro Blair MD CHEMISTRY ORDERABL ES Performing Organization Address [facility] Co de Phone Number [facility] [place] [address] * Cardiac Enzymes (LEB/CGP) (09/12/2017 1:29 PM EST) Troponin-T <0.01 0.00 - 0.00 ng/mL [facility] Comment: The 99th percentile for Troponin T is less than 0.01 ng/mL, any detectable cTnT concentration using this assay should be considered elevated. According to the third universal definition of myocardial infarction the following criteria with a clinical presentation consistent with acute myocardial ischemia meets the diagnosis for a myocardial infarction (AK). Detection of a rise and/or fall of cTnT, with at least one value greater than the 99th percentile (> or = 0.01) and with at least one of the following ?? Symptoms of ischemia ?? New or presumed new significant YR-roodlwf-C wave (ST-T) changes or new left bundle [...] additional sample may be indicated. Reference: Third [place] Definition of Myocardial Infarction. Journal of the [place] [employer] 2012;60:1581-98 Creatine Kinase 65 0 - 200 unit/L [facility] Blood specimen (specimen) 09/12/2017 1:29 PM EST 09/12/2017 1:34 PM EST Narrative Resulting Agency Comment Spec In Lab Alejandro Blair MD CHEMISTRY ORDERABL ES [facility] [place] [address] * EKG 12 Lead (09/12/2017 12:19 PM EST) Ventricular rate 82 BPM MUSE SYSTEM Atrial Rate 82 BPM MUSE SYSTEM P-R Interval 136 ms MUSE SYSTEM QRS Duration 80 ms MUSE SYSTEM Q-T Interval 358 ms MUSE SYSTEM QTC Calculated (Bezet) 418 ms MUSE SYSTEM Calculated P [place] 13 degrees MUSE SYSTEM Calculated R [place] 33 degrees MUSE SYSTEM Calculated T [place] 34 degrees MUSE SYSTEM INTERPRETATION Normal sinus rhythm Normal ECG When compared with ECG of 25-NOV-2016 07:23, No significant change was found Confirmed by MD Garrison Jon ([id number]) on 09/12/2017 4:16:03 PM MUSE SYSTEM 09/12/2017 12:1 9 PM EST 09/12/2017 4:16 PM EST Buster Doherty DO ECG ORDERABLES MUSE SYSTEM * SCAN DOC: CARDIAC CATH (09/12/2017 12:00 AM EST) Anatomical Region Laterality Modality Cardiac Other Narrative 09/12/2017 12:00 AM EST Ordered by an unspecified provider. 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, unspecified whether [place] or transplanted heart Unstable angina Intermediate coronary syndrome documented in this encounter Administered Medications Inactive Administered Medications - up to 3 most recent administrations Medication Order MAR Action Action Date Dose Rate Site acetaminophen (TYLENOL) tablet 650 mg 650 mg, Oral, EVERY 6 HOURS PRN, Starting on 09/12/17 at 1735, Until 09/14/17 at 1312, Pain, Maximum dose of acetaminophen is 4000 mg from all sources in 24 hours., Routine Given 09/13/2017 8:52 AM EST 650 mg aspirin chewable tablet 324 mg 324 mg, Oral, ONCE, 1 dose, On 09/12/17 at 1240, STAT Given 09/12/2017 2:48 PM EST 324 mg aspirin chewable tablet 81 mg 81 mg, Oral, DAILY, First dose on 09/13/17 at 0915, Until Discontinued, Routine Given 09/14/2017 8:30 AM EST 81 mg Given 09/13/2017 9:23 AM EST 81 mg buPROPion (WELLBUTRIN SR or ZYBAN) SR tablet 150 mg 150 mg, Oral, 2 TIMES DAILY, First dose on 09/12/17 at 2100, Until Discontinued, DO NOT CRUSH OR OPEN, Routine Given 09/14/2017 8:30 AM EST 150 mg Given 09/13/2017 8:19 PM EST 150 mg Given 09/13/2017 8:50 AM EST 150 mg clopidogrel (PLAVIX) tablet 75 mg 75 mg, Oral, DAILY, First dose on [place] 09/13/17 at 0900, Until Discontinued, Routine Given 09/14/2017 8:30 AM EST 75 mg Given 09/13/2017 8:50 AM EST 75 mg DULoxetine (CYMBALTA) capsule 60 mg 60 mg, Oral, 2 TIMES DAILY, First dose on [facility] 09/12/17 at 2100, Until Discontinued, Routine Given 09/14/2017 8:30 AM EST 60 mg Given 09/13/2017 8:20 PM EST 60 mg Given 09/13/2017 8:51 AM EST 60 mg gabapentin (NEURONTIN) capsule 600 mg 600 mg, Oral, 2 TIMES DAILY BEFORE BREAKFAST AND LUNCH, First dose (after last modification) on [place] 09/13/17 at 0730, Until Discontinued, Routine Given 09/14/2017 8:00 AM EST 600 mg Given 09/13/2017 1:23 PM EST 600 mg Given 09/13/2017 8:00 AM EST 600 mg gabapentin (NEURONTIN) capsule 900 mg 900 mg, Oral, NIGHTLY, First dose on [facility] 09/12/17 at 2100, Until Discontinued, Routine Given 09/13/2017 8:20 PM EST 900 mg Given 09/12/2017 8:30 PM EST 900 mg heparin (porcine) injection 0-4,000 Units 0-4,000 Units, Intravenous, BOLUS PER HEPARIN PROTOCOL, Starting on [facility] 09/12/17 at 1512, Until [place] 09/13/17 at 1015, Per Protocol, START ADJUSTMENT SCHEDULE 6 HOURS AFTER STARTING INFUSION aPTT Between 60 - 79 seconds: Bolus 2,000 units aPTT Less than 60 seconds: Bolus 4,000 units Increase infusion and recheck aPTT in 6 hours. , Routine Given 09/13/2017 1:18 AM EST 4,000 Units heparin (porcine) injection 4,000 Units 4,000 Units, Intravenous, ONCE, 1 dose, On [facility] 09/12/17 at 1515, INITIAL LOADING DOSE Maximum loading dose 4,000 units., Routine Given 09/12/2017 5:09 PM EST 4,000 Units heparin 25,000 units in dextrose 5% 500 mL infusion 0-5,000 Units/hr (0-100 mL/hr), Intravenous, CONTINUOUS, Starting on 09/12/17 at 1515, Until 09/13/17 at 1015, BEGIN infusion at 1,000 units per hr (12 units/kg/hr). MAX INITIAL infusion rate is 1,000 units/hr. Target PTT = 80 - 114 seconds Start adjustment schedule 6 hours after starting infusion. If PTT is: - less than 60 seconds, Administer PRN bolus and increase rate by 400 units per hr (4 units/kg/hr) - 60 - 79 seconds, Administer PRN bolus and increase rate by 200 units per hr (2 units/kg/hr) - 80 - 114 seconds, No Change - 115 - 129 seconds, decrease rate by 100 units per hr (1 units/kg/hr) - 130 - 145 seconds, stop infusion for 30 minutes, then decrease rate by 200 units per hr (2 units/kg/hr) - Greater than 145 seconds, stop infusion for 60 minutes, then decrease rate by 300 units per hour (3 units/kg/hr) Repeat aPTT 6 hours after initiating heparin. Then 6 hours after each dose adjustment. When 2 consecutive aPTT within target range of 80 - 114 seconds, change aPTT to once every 24 hours with A.M. labs while on heparin. RN to order required aPTT - Per Protocol, Routine, Indication: ACS (STEMI vs NSTEMI vs UA) Rate/Dose Change 09/13/2017 7:22 AM EST 1,400 Units/hr 28 mL/hr Rate/Dose Change 09/13/2017 1:14 AM EST 1,400 Units/hr 28 mL/hr New Bag 09/12/2017 5:10 PM EST 1,000 Units/hr 20 mL/hr isosorbide mononitrate (IMDUR) CR tablet 120 mg 120 mg, Oral, DAILY, First dose on 09/13/17 at 0900, Until Discontinued, DO NOT CRUSH OR OPEN, Routine Given 09/13/2017 8:52 AM EST 120 mg isosorbide mononitrate (IMDUR) CR tablet 60 mg 60 mg, Oral, ONCE, 1 dose, On 09/14/17 at 0830, DO NOT CRUSH OR OPEN, Routine Given 09/14/2017 8:30 AM EST 60 m g lidocaine (XYLOCAINE) 10 mg/mL (1 %) injection 3 mg 3 mg (0.3 mL), Subcutaneous, ONCE PRN, 1 dose, Starting on 09/13/17 at 0858, Until Thu09/14/17 at 1312, with discomfort with PIV insertion, Cath (Day of Procedure), Routine losartan (COZAAR) tablet 12.5 mg 12.5 mg, Oral, DAILY, First dose on 09/12/17 at 1800, Until Discontinued, Routine Given 09/14/2017 8:31 AM EST 12.5 mg Given 09/13/2017 8:53 AM EST 12.5 mg meTOPROLOL tartrate (LOPRESSOR) tablet 50 mg 50 mg, Oral, 2 TIMES DAILY, First dose on 09/12/17 at 2100, Until Discontinued, Routine Given 09/14/2017 8:30 AM EST 50 mg Given 09/13/2017 8:20 PM EST 50 mg Given 09/13/2017 8:52 AM EST 50 mg nicotine (NICODERM CQ) 14 mg/24 hr patch 14 mg 14 mg, Transdermal, Administer over 24 Hours, DAILY, First dose on 09/12/17 at 1800, Until Discontinued, Routine nicotine (NICODERM CQ) 14 mg/24 hr patch Patch Removal Transdermal, DAILY, First dose on Thu09/13/17 at 1615, Until Discontinued, Remove nicotine 14 mg/24 hr patch nicotine (NICODERM CQ) 14 mg/24 hr patch Patch Verification Transdermal, 2 TIMES DAILY, First dose on [place] 09/13/17 at 0415, Until Discontinued, Verify nicotine 14 mg/24 hr patch. nitroGLYcerin (NITROSTAT) SL tablet 0.4 mg 0.4 mg, Sublingual, EVERY 5 MIN PRN, Starting on 09/12/17 at 1735, Until Thu09/14/17 at 1312, Chest pain, May repeat every 5 minutes for a total of three doses. Notify provider if chest pain not relieved with nitroglycerin. Do not administer nitroglycerin if the patinet has received or taken phosphodiesterase (PDE-5) inhibitors such as sildenafil, tadalafil or vardenafil within the last 24 to 72 hours., Routine Given 09/13/2017 8:09 AM EST 0.4 mg Given 09/13/2017 8:02 AM EST 0.4 mg Given 09/13/2017 7:57 AM EST 0.4 mg oxyCODONE (ROXICODONE) immediate release tablet 10 mg 10 mg, Oral, 4 TIMES DAILY PRN, Starting on 09/12/17 at 1735, Until 09/14/17 at 1312, pain unresponsive to tylenol, Routine Given 09/14/2017 8:36 AM EST 10 mg Given 09/13/2017 8:25 PM EST 10 mg pantoprazole (PROTONIX) tablet 40 mg 40 mg, Oral, 2 TIMES DAILY, First dose on 09/12/17 at 2100, Until Discontinued, DO NOT CRUSH OR OPEN, Routine Given 09/14/2017 8:30 AM EST 40 mg Given 09/13/2017 8:20 PM EST 40 mg Given 09/13/2017 8:52 AM EST 40 mg pramipexole (MIRAPEX) tablet 0.5 mg 0.5 mg, Oral, NIGHTLY, First dose on 09/12/17 at 2100, Until Discontinued, Routine Given 09/13/2017 8:19 PM EST 0.5 mg Given 09/12/2017 8:30 PM EST 0.5 mg rosuvastatin (CRESTOR) tablet 20 mg 20 mg, Oral, EVERY EVENING, First dose on 09/12/17 at 1800, Until Discontinued, Routine Given 09/13/2017 4:39 PM EST 20 mg Given 09/12/2017 6:18 PM EST 20 mg sodium chloride 0.9 % flush 5 mL 5 mL, Intravenous, 2 TIMES DAILY, First dose on 09/12/17 at 2100, Until Discontinued, Routine Given 09/14/2017 8:34 AM EST 5 mLs sodium chloride 0.9 % flush 5 mL 5 mL, Intravenous, EVERY 12 HOURS, First dose on 09/13/17 at 0915, Until Discontinued, Cath (Day of Procedure), Routine Given 09/13/2017 8:20 PM EST 5 mLs sodium chloride 0.9 % flush 5-20 mL 5-20 mL, Intravenous, EVERY 1 MIN PRN, Starting on 09/13/17 at 0858, Until 09/14/17 at 1312, flush, Flush pertains to all indwelling lines. Flush per protocol found in the job aid using the link provided on this medication record., Cath (Day of Procedure), Routine sodium chloride 0.9% infusion 100 mL/hr, Intravenous, CONTINUOUS, Starting on 09/13/17 at 0915, Until 09/13/17 at 1800, Cath (Day of Procedure) Rate/Dose Change 09/13/2017 12:55 PM EST 100 mL/hr 100 mL/hr New Bag 09/13/2017 9:41 AM EST 200 mL/hr 200 mL/hr topiramate (TOPAMAX) tablet 50 mg 50 mg, Oral, NIGHTLY, First dose on 09/12/17 at 2100, Until Discontinued, Routine Given 09/13/2017 8:20 PM EST 50 mg Given 09/12/2017 8:30 PM EST 50 mg documented in this encounter Active and Recently Administered Medications Times are shown in EST. Scheduled Medication Order 09/12/2017 09/13/2017 09/14/2017 aspirin chewable tablet 324 mg (COMPLETED) 324 mg, Oral, ONCE, 1 dose, On 09/12/17 at 1240, STAT 1448 (Given - Provider: Katia Chan RN) aspirin chewable tablet 81 mg 81 mg, Oral, DAILY, First dose on 09/13/17 at 0915, Until Discontinued, Routine 0923 (Given - Provider: Rupal Munguia RN)1002 (OCT Hold - Provider: Admin Adt - Reason: Transfer to a Procedural area)1134 (OCT Unhold - Provider: Admin Adt) 0830 (Given - Provider: Rupal Munguia RN) buPROPion (WELLBUTRIN SR or ZYBAN) SR tablet 150 mg 150 mg, Oral, 2 TIMES DAILY, First dose on 09/12/17 at 2100, Until Discontinued, DO NOT CRUSH OR OPEN, Routine 2030 (Given - Provider: Keisha Mae, VERO) 0850 (Given - Provider: Rupal Munguia, VERO)1002 (OCT Hold - Provider: Admin Adt - Reason: Transfer to a Procedural area)1134 (OCT Unhold - Provider: Admin Adt)2019 (Given - Provider: Keisha Mae, VERO) 0830 (Given - Provider: Rupal Munguia RN) clopidogrel (PLAVIX) tablet 75 mg 75 mg, Oral, DAILY, First dose on 09/13/17 at 0900, Until Discontinued, Routine 0850 (Given - Provider: Rupal Munguia RN)1002 ([facility] Hold - Provider: Admin Adt - Reason: Transfer to a Procedural area)1134 ([facility] Unhold - Provider: Admin Adt) 0830 (Given - Provider: Rupal Munguia RN) DULoxetine (CYMBALTA) capsule 60 mg 60 mg, Oral, 2 TIMES DAILY, First dose on 09/12/17 at 2100, Until Discontinued, Routine 2030 (Given - Provider: Keisha Mae RN) 0851 (Given - Provider: Rupal Munguia RN)1002 ([facility] Hold - Provider: Admin Adt - Reason: Transfer to a Procedural area)1134 ([facility] Unhold - Provider: Admin Adt)2020 (Given - Provider: Keisha Mae RN) 0830 (Given - Provider: Rupal Munguia RN) gabapentin (NEURONTIN) capsule 600 mg 600 mg, Oral, 2 TIMES DAILY BEFORE BREAKFAST AND LUNCH, First dose (after last modification) on 09/13/17 at 0730, Until Discontinued, Routine 0800 (Given - Provider: Rupal Munguia RN)1002 ([facility] Hold - Provider: Admin Adt - Reason: Transfer to a Procedural area)1130 (Automatically Held - Provider: Admin Adt)1134 ([facility] Unhold - Provider: Admin Adt)1323 (Given - Provider: Rupal Munguia RN - Comment: late lunch) 0800 (Given - Provider: Rupal Munguia RN) gabapentin (NEURONTIN) capsule 900 mg 900 mg, Oral, NIGHTLY, First dose on 09/12/17 at 2100, Until Discontinued, Routine 2030 (Given - Provider: Keisha Mae RN) 1002 ([facility] Hold - Provider: Admin Adt - Reason: Transfer to a Procedural area)1134 ([facility] Unhold - Provider: Admin Adt)2019 (Given - Provider: Keisha Mae RN) heparin (porcine) injection 4,000 Units (COMPLETED) 4,000 Units, Intravenous, ONCE, 1 dose, On 09/12/17 at 1515, INITIAL LOADING DOSE Maximum loading dose 4,000 units., Routine 1709 (Given - Provider: Katia Chan RN) isosorbide mononitrate (IMDUR) CR tablet 120 mg (CANCELED) 120 mg, Oral, DAILY, First dose on 09/13/18 at 0900, Until Discontinued, DO NOT CRUSH OR OPEN, Routine 0852 (Given - Provider: Rupal Munguia RN)1002 ([facility] Hold - Provider: Admin Adt - Reason: Transfer to a Procedural area)1134 ([facility] Unhold - Provider: Admin Adt) isosorbide mononitrate (IMDUR) CR tablet 60 mg (COMPLETED) 60 mg, Oral, ONCE, 1 dose, On 09/14/17 at 0830, DO NOT CRUSH OR OPEN, Routine 0830 (Given - Provider: Rupal Munguia, VERO) losartan (COZAAR) tablet 12.5 mg 12.5 mg, Oral, DAILY, First dose on 09/12/17 at 1800, Until Discontinued, Routine 181 (Not Given - Provider: Mariela So, VERO - Reason: Patient/family refused) 0853 (Given - Provider: Rupla Munguia, VERO)1002 ([facility] Hold - Provider: Admin Adt - Reason: Transfer to a Procedural area)1134 ([facility] Unhold - Provider: Admin Adt) 0831 (Given - Provider: Rupal Munguia RN) meTOPROLOL tartrate (LOPRESSOR) tablet 50 mg 50 mg, Oral, 2 TIMES DAILY, First dose on 09/12/17 at 2100, Until Discontinued, Routine 2030 (Given - Provider: Keisha Mae, VERO) 0852 (Given - Provider: Rupal Munguia, VERO)1002 ([facility] Hold - Provider: Admin Adt - Reason: Transfer to a Procedural area)1134 ([facility] Unhold - Provider: Admin Adt)2020 (Given - Provider: Keisha Mae, VERO) 0830 (Given - Provider: Rupal Munguia, VERO) nicotine (NICODERM CQ) 14 mg/24 hr patch 14 mg(Linked Group 1) 14 mg, Transdermal, Administer over 24 Hours, DAILY, First dose on 09/12/17 at 1800, Until Discontinued, Routine 181 (Not Given - Provider: Mariela So, VERO - Reason: Patient/family refused) 0900 (Not Given - Provider: Rupal Munguia RN - Reason: Patient/family refused)1002 ([facility] Hold - Provider: Admin Adt - Reason: Transfer to a Procedural area)1134 ([facility] Unhold - Provider: Admin Adt) 0900 (Not Given - Provider: Rupal Munguia RN - Reason: Patient/family refused) nicotine (NICODERM CQ) 14 mg/24 hr patch Patch Removal(Linked Group 1) Transdermal, DAILY, First dose on 09/13/17 at 1615, Until Discontinued, Remove nicotine 14 mg/24 hr patch 1002 ([facility] Hold - Provider: Admin Adt - Reason: Transfer to a Procedural area)1134 ([facility] Unhold - Provider: Admin Adt)1615 (Patch Not Removed (add comment) - Provider: Rupal Munguia RN - Comment: no patch on) 0900 (Patch Not Removed (add comment) - Provider: Rupal Munguia RN - Comment: refusing patches) nicotine (NICODERM CQ) 14 mg/24 hr patch Patch Verification(Linked Group 1) Transdermal, 2 TIMES DAILY, First dose on 09/13/17 at 0415, Until Discontinued, Verify nicotine 14 mg/24 hr patch. 0415 (Not Given - Provider: Keisah Mae RN - Reason: See comment - Comment: not placed; pt refused)1002 ([facility] Hold - Provider: Admin Adt - Reason: Transfer to a Procedural area)1134 ([facility] Unhold - Provider: Admin Adt)2100 (Not Given - Provider: Keisha Mae RN - Reason: Patient/family refused) 0900 (Patch Not Verified (add comment) - Provider: Rupal Munguia RN) pantoprazole (PROTONIX) tablet 40 mg 40 mg, Oral, 2 TIMES DAILY, First dose on 09/12/17 at 2100, Until Discontinued, DO NOT CRUSH OR OPEN, Routine 2029 (Given - Provider: Keisha Mae RN) 0852 (Given - Provider: Rupal Munguia RN)1002 ([facility] Hold - Provider: Admin Adt - Reason: Transfer to a Procedural area)1134 ([facility] Unhold - Provider: Admin Adt)2019 (Given - Provider: Keisha Mae RN) 0830 (Given - Provider: Rupal Munguia RN) pramipexole (MIRAPEX) tablet 0.5 mg 0.5 mg, Oral, NIGHTLY, First dose on 09/12/17 at 2100, Until Discontinued, Routine 2030 (Given - Provider: Keisha Mea RN) 1002 ([facility] Hold - Provider: Admin Adt - Reason: Transfer to a Procedural area)1134 ([facility] Unhold - Provider: Admin Adt)2018 (Given - Provider: Keisha Mae RN) rosuvastatin (CRESTOR) tablet 20 mg 20 mg, Oral, EVERY EVENING, First dose on 09/12/17 at 1800, Until Discontinued, Routine 1818 (Given - Provider: Mariela So, VERO) 1002 ([facility] Hold - Provider: Admin Adt - Reason: Transfer to a Procedural area)1134 ([facility] Unhold - Provider: Admin Adt)1639 (Given - Provider: Rupal Munguia, VERO) sodium chloride 0.9 % flush 5 mL 5 mL, Intravenous, 2 TIMES DAILY, First dose on 09/12/17 at 2100, Until Discontinued, Routine 2100 (Not Given - Provider: Keisha Mae RN - Reason: Contraindicated - Comment: iv infusing) 0900 (Not Given - Provider: Rupal Munguia RN - Reason: Contraindicated)1002 ([facility] Hold - Provider: Admin Adt - Reason: Transfer to a Procedural area)1134 ([facility] Unhold - Provider: Admin Adt)2099 (Not Given - Provider: Keisha Mae RN - Reason: See comment - Comment: only 1 iv) 0834 (Given - Provider: Rupal Munguia RN) sodium chloride 0.9 % flush 5 mL 5 mL, Intravenous, EVERY 12 HOURS, First dose on 09/13/17 at 0915, Until Discontinued, Cath (Day of Procedure), Routine 0915 (Not Given - Provider: Rupal Munguia RN - Reason: Contraindicated)2020 (Given - Provider: Keisha Mae RN) 0915 (Not Given - Provider: Rupal Munguia RN - Reason: Loss of access) topiramate (TOPAMAX) tablet 50 mg 50 mg, Oral, NIGHTLY, First dose on 09/12/17 at 2100, Until Discontinued, Routine 2030 (Given - Provider: Keisha Mae RN) 1002 ([facility] Hold - Provider: Admin Adt - Reason: Transfer to a Procedural area)1134 ([facility] Unhold - Provider: Admin Adt)2019 (Given - Provider: Keisha Mae RN) Continuous Medication Order 09/12/2017 09/13/201709/14/2017 heparin 25,000 units in dextrose 5% 500 mL infusion (CANCELED)(Linked Group 2) 0-5,000 Units/hr (0-100 mL/hr), Intravenous, CONTINUOUS, Starting on 09/12/17 at 1515, Until 09/13/17 at 1015, BEGIN infusion at 1,000 units per hr (12 units/kg/hr). MAX INITIAL infusion rate is 1,000 units/hr. Target PTT = 80 - 114 seconds Start adjustment schedule 6 hours after starting infusion. If PTT is: - less than 60 seconds, Administer PRN bolus and increase rate by 400 units per hr (4 units/kg/hr) - 60 - 79 seconds, Administer PRN bolus and increase rate by 200 units per hr (2 units/kg/hr) - 80 - 114 seconds, No Change - 115 - 129 seconds, decrease rate by 100 units per hr (1 units/kg/hr) - 130 - 145 seconds, stop infusion for 30 minutes, then decrease rate by 200 units per hr (2 units/kg/hr) - Greater than 145 seconds, stop infusion for 60 minutes, then decrease rate by 300 units per hour (3 units/kg/hr) Repeat aPTT 6 hours after initiating heparin. Then 6 hours after each dose adjustment. When 2 consecutive aPTT within target range of 80 - 114 seconds, change aPTT to once every 24 hours with A.M. labs while on heparin. RN to order required aPTT - Per Protocol, Routine, Indication: ACS (STEMI vs NSTEMI vs UA) 1710 (New Bag - Provider: Katia Chan RN) 0114 (Rate/Dose Change - Provider: Keisha Mae RN)0722 (Rate/Dose Change - Provider: Rupal Munguia RN)1002 ([facility] Hold - Provider: Admin Adt - Reason: Transfer to a Procedural area)1015 ([facility] Unhold - Provider: Admin Adt) sodium chloride 0.9% infusion () 100 mL/hr, Intravenous, CONTINUOUS, Starting on 09/13/17 at 0915, Until 09/13/17 at 1800, Cath (Day of Procedure) 0941 (New Bag - Provider: Rupal Munguia RN)1255 (Rate/Dose Change - Provider: Rupal Munguia RN)1800 (Stopped - Provider: Rupal Munguia RN) PRN Medication Order 09/12/2017 09/13/2017 09/14/2017 acetaminophen (TYLENOL) tablet 650 mg 650 mg, Oral, EVERY 6 HOURS PRN, Starting on 09/12/17 at 1735, Until 09/14/17 at 1312, Pain, Maximum dose of acetaminophen is 4000 mg from all sources in 24 hours., Routine 0852 (Given - Provider: Rupal Munguia RN)1002 ([facility] Hold - Provider: Admin Adt - Reason: Transfer to a Procedural area)1134 ([facility] Unhold - Provider: Admin Adt) cyclobenzaprine (FLEXERIL) tablet 10 mg 10 mg, Oral, 3 TIMES DAILY PRN, Starting on 09/12/17 at 1735, Until 09/14/17 at 1312, Muscle spasms, Routine 1002 ([facility] Hold - Provider: Admin Adt - Reason: Transfer to a Procedural area)1134 ([facility] Unhold - Provider: Admin Adt) fentaNYL 50 mcg/mL multi-dose injection (CANCELED) ONCE PRN, Starting on 09/13/17 at 1014, Until 09/13/17 at 1015, Cath (Intra-Procedure), Routine 1014 (Given - Provider: Marianne Barker) fentaNYL 50 mcg/mL multi-dose injection (CANCELED) ONCE PRN, Starting on 09/13/17 at 1028, Until 09/13/17 at 1037, Intra-Operative (Intra-Procedure), Routine 1028 (Given - Provider: Marianne Barker) fentaNYL 50 mcg/mL multi-dose injection (CANCELED) ONCE PRN, Starting on 09/13/17 at 1105, Until 09/13/17 at 1107, Cath (Intra-Procedure), Routine 1105 (Given - Provider: Marianne Barker) heparin (porcine) injection 0-4,000 Units (CANCELED)(Linked Group 2) 0-4,000 Units, Intravenous, BOLUS PER HEPARIN PROTOCOL, Starting on 09/12/17 at 1512, Until 09/13/17 at 1015, Per Protocol, START ADJUSTMENT SCHEDULE 6 HOURS AFTER STARTING INFUSION aPTT Between 60 - 79 seconds: Bolus 2,000 units aPTT Less than 60 seconds: Bolus 4,000 units Increase infusion and recheck aPTT in 6 hours. , Routine 0118 (Given - Provider: Keisha Mae RN - Comment: ptt 50)1002 ([facility] Hold - Provider: Admin Adt - Reason: Transfer to a Procedural area)1015 ([facility] Unhold - Provider: Admin Adt) heparin (porcine) injection (CANCELED) ONCE PRN, Starting on 09/13/17 at 1037, Until 09/13/17 at 1037, Cath (Intra-Procedure), Routine 1037 (Given - Provider: Marianne Barker) heparin (porcine) injection (CANCELED) ONCE PRN, Starting on 09/13/17 at 1059, Until 09/13/17 at 1107, Cath (Intra-Procedure), Routine 1059 (Given - Provider: Marianne Barker) iohexol (OMNIPAQUE) 350 mg/mL solution (CANCELED) ONCE PRN, Starting on 09/13/17 at 1108, Until 09/13/17 at 1108, Cath (Intra-Procedure), Routine 1108 (Given - Provider: Agusto Ball II) lidocaine (XYLOCAINE) 10 mg/mL (1 %) injection 3 mg 3 mg (0.3 mL), Subcutaneous, ONCE PRN, 1 dose, Starting on 09/12/17 at 1735, Until 09/14/17 at 1312, for discomfort with PIV insertion, Routine 1002 ([facility] Hold - Provider: Admin Adt - Reason: Transfer to a Procedural area)1134 ([facility] Unhold - Provider: Admin Adt) lidocaine (XYLOCAINE) 10 mg/mL (1 %) injection 3 mg 3 mg (0.3 mL), Subcutaneous, ONCE PRN, 1 dose, Starting on 09/13/17 at 0858, Until 09/14/17 at 1312, with discomfort with PIV insertion, Cath (Day of Procedure), Routine midazolam (PF) (VERSED) 1 mg/mL multi-dose injection (CANCELED) ONCE PRN, Starting on 09/13/17 at 1014, Until 09/13/17 at 1015, Cath (Intra-Procedure), Routine 1014 (Given - Provider: Marianne Barker) midazolam (PF) (VERSED) 1 mg/mL multi-dose injection (CANCELED) ONCE PRN, Starting on 09/13/17 at 1028, Until 09/13/17 at 1037, Cath (Intra-Procedure), Routine 1028 (Given - Provider: Marianne Barker) nitroGLYcerin (NITROSTAT) SL tablet 0.4 mg 0.4 mg, Sublingual, EVERY 5 MIN PRN, Starting on 09/12/17 at 1735, Until 09/14/17 at 1312, Chest pain, May repeat every 5 minutes for a total of three doses. Notify provider if chest pain not relieved with nitroglycerin. Do not administer nitroglycerin if the patinet has received or taken phosphodiesterase (PDE-5) inhibitors such as sildenafil, tadalafil or vardenafil within the last 24 to 72 hours., Routine 0757 (Given - Provider: Rupal Munguia RN)0802 (Given - Provider: Rupal Munguia RN)0809 (Given - Provider: Rupal Munguia RN)1002 ([facility] Hold - Provider: Admin Adt - Reason: Transfer to a Procedural area)1134 ([facility] Unhold - Provider: Admin Adt) oxyCODONE (ROXICODONE) immediate release tablet 10 mg 10 mg, Oral, 4 TIMES DAILY PRN, Starting on 09/12/17 at 1735, Until 09/14/17 at 1312, pain unresponsive to tylenol, Routine 1002 ([facility] Hold - Provider: Admin Adt - Reason: Transfer to a Procedural area)1134 ([facility] Unhold - Provider: Admin Adt)2024 (Given - Provider: Keisha Mae RN) 0836 (Given - Provider: Rupal Munguia RN) sodium chloride 0.9 % flush 5-20 mL 5-20 mL, Intravenous, EVERY 1 MIN PRN, Starting on 09/12/17 at 1735, Until 09/14/17 at 1312, flush, Flush pertains to all indwelling lines. Flush per protocol found in the job aid using the link provided on this medication record., Routine 1002 ([facility] Hold - Provider: Admin Adt - Reason: Transfer to a Procedural area)1134 ([facility] Unhold - Provider: Admin Adt) sodium chloride 0.9 % flush 5-20 mL 5-20 mL, Intravenous, EVERY 1 MIN PRN, Starting on 09/13/17 at 0858, Until 09/14/17 at 1312, flush, Flush pertains to all indwelling lines. Flush per protocol found in the job aid using the link provided on this medication record., Cath (Day of Procedure), Routine sodium chloride 0.9% infusion (CANCELED) CONTINUOUS PRN, Starting on 09/13/17 at 1037, Until 09/13/17 at 1037, Cath (Intra-Procedure) 1037 (New Bag - Provider: Marianne Barker) sodium chloride 0.9% infusion (CANCELED) CONTINUOUS PRN, Starting on 09/13/17 at 1042, Until 09/13/17 at 1107, Cath (Intra-Procedure) 1042 (New Bag - Provider: Marianne Barker)1100 (Stopped - Provider: Rupal Munguia RN) Linked Groups Order Group 1: nicotine (NICODERM CQ) 14 mg/24 hr patch 14 mgJump to med 14 mg, Transdermal, Administer over 24 Hours, DAILY, First dose on 09/12/17 at 1800, Until Discontinued, Routine And nicotine (NICODERM CQ) 14 mg/24 hr patch Patch VerificationJump to med Transdermal, 2 TIMES DAILY, First dose on 09/13/17 at 0415, Until Discontinued, Verify nicotine 14 mg/24 hr patch. And nicotine (NICODERM CQ) 14 mg/24 hr patch Patch RemovalJump to med Transdermal, DAILY, First dose on 09/13/17 at 1615, Until Discontinued, Remove nicotine 14 mg/24 hr patch Group 2: heparin (porcine) injection 0-4,000 Units (CANCELED)Jump to med 0-4,000 Units, Intravenous, BOLUS PER HEPARIN PROTOCOL, Starting on 09/12/17 at 1512, Until 09/13/17 at 1015, Per Protocol, START ADJUSTMENT SCHEDULE 6 HOURS AFTER STARTING INFUSION aPTT Between 60 - 79 seconds: Bolus 2,000 units aPTT Less than 60 seconds: Bolus 4,000 units Increase infusion and recheck aPTT in 6 hours. , Routine And heparin 25,000 units in dextrose 5% 500 mL infusion (CANCELED)Jump to med 0-5,000 Units/hr (0-100 mL/hr), Intravenous, CONTINUOUS, Starting on 09/12/17 at 1515, Until 09/13/17 at 1015, BEGIN infusion at 1,000 units per hr (12 units/kg/hr). MAX INITIAL infusion rate is 1,000 units/hr. Target PTT = 80 - 114 seconds Start adjustment schedule 6 hours after starting infusion. If PTT is: - less than 60 seconds, Administer PRN bolus and increase rate by 400 units per hr (4 units/kg/hr) - 60 - 79 seconds, Administer PRN bolus and increase rate by 200 units per hr (2 units/kg/hr) - 80 - 114 seconds, No Change - 115 - 129 seconds, decrease rate by 100 units per hr (1 units/kg/hr) - 130 - 145 seconds, stop infusion for 30 minutes, then decrease rate by 200 units per hr (2 units/kg/hr) - Greater than 145 seconds, stop infusion for 60 minutes, then decrease rate by 300 units per hour (3 units/kg/hr) Repeat aPTT 6 hours after initiating heparin. Then 6 hours after each dose adjustment. When 2 consecutive aPTT within target range of 80 - 114 seconds, change aPTT to once every 24 hours with A.M. labs while on heparin. RN to order required aPTT - Per Protocol, Routine, Indication: ACS (STEMI vs NSTEMI vs UA) documented in this encounter Care Teams Clinic Business Manager Relationship Specialty Start Date End Date Coni Lim MD [address] [place] [address] PCP - General 07/16/10 documented as of this encounter
--- OUTSIDE RECORDS SUMMARY | 2024-04-30 13:41 | XMS_ITS | Encounter Summary ---
Author Organization [facility] Address [facility] [place] [address] Care Team Providers Care Blanker Press Operator Name Role Phone Coni Lim MD Primary Care Provider Encounter Details Date Type Department Care Team (Late st Contact Info) Description 03/13/2019 Telephone Cardiology at [address] [address] Syed Solorio MD [facility] [place] [address] Social History Tobacco Use Types Packs/Day Years [...] encounter Miscellaneous Notes * Telephone Encounter - Syed Solorio MD - 03/13/2019 10:35 PM EDT Telephone Triage Note Initial Contact Date: 03/13/19 Initial contact time: 1130 Referring Provider: Heide Patient Location: [facility] Presenting Symptoms per OSH: Stable angina SOB and chest pressure with exertion, Past Medical History: 53 y/o male PMH CAD s/p PCI to RCA presenting with exertional CP now progressing to CP at rest. Forthe past week he has had mild chest pressure with exertion but today he developed crushing chest pain with minimal exertion that did not resolve with rest. He took 2 NTG that did help relieve the pressure. He also reports associated SOB. He takes an ASA at home. Pertinent Diagnostic Findings: Vitals: BP 116/76 HR 77 SaO2 EKG : NSR Troponin : neg CXR: OSH Interventions: ASA Plavix Heparin Morphine Assessment/Plan: 53 y/o male known CAD presenting with symptoms consistent with unstable angina. Transfer to for further care - Above recommendations are based on information received over the phone; I have not personally interviewed or examined this patient. Syed Solorio MD Rounder And Backer PGY4 P: [id number] documented in this encounter Plan of Treatment Not on file documented as of this encounter Visit Diagnoses Not on filedocumented in this encounter Care Teams Blanker Press Operator Relationship Specialty Start Date End Date Coni Lim MD [address] [place] [address] PCP - General 07/16/10 documented as of this encounter
--- OUTSIDE RECORDS SUMMARY | 2024-04-30 13:41 | XMS_ITS | Encounter Summary ---
[place] [address] Care Team Providers Care Pocket Stitcher Name Role Phone Coni Lim MD Primary Care Provider [phone] Encounter Details Date Type Department Care Team (Late st Contact Info) Description 09/13/2018 11:00 AM EST Interpretation Only Cardiology at [address] [phone] Rafael Nieto Jr., MD [address] [place] [address] Chest pain, unspecified type Social History Tobacco Use Types Packs/Day [...] Priority Date/Time Associated Diagnosis Comments ECG SCAN 09/07/2018 12:00 AM EST documented in this encounter Results * SCAN DOC: ECG (09/07/2018 12:00 AM EST) Narrative 09/07/2018 12:00 AM EST Ordered by an unspecified provider. Scanning Provider MEDIA MGR SCAN EXT O RDR/RSLT documented in this encounter Visit Diagnoses Diagnosis Chest pain, unspecified type documented in this encounter Care Teams Pocket Stitcher Relationship Specialty Start Date End Date Coni Lim MD [address] [place] [address] PCP - General 07/16/10 documented as of this encounter
--- OUTSIDE RECORDS SUMMARY | 2024-04-30 13:41 | XMS_ITS | Encounter Summary ---
Author Organization [facility] [place] [address] Care Team Providers Care Shipping And Receiving Operator Name Role Phone Coni Lim MD Primary Care Provider [phone] Encounter Details Date Type Department Care Team (Late st Contact Info) Description 03/13/2019 External Results DH Patient Placement [facility] [place] [address] Social History Tobacco Use Types Packs/Day Years [...] Date/Time Associated Diagnosis Comments ECG SCAN Routine 03/13/2019 documented in this encounter Results * Scan Doc: ECG (03/13/2019) Historical Provider MD BRITO MGR SCAN EX T ORDR/RSLT documented in this encounter Visit Diagnoses Not on filedocumented in this encounter Care Teams Shipping And Receiving Operator Relationship Specialty Start Date End Date Coni Lim MD [address] [place] [address] PCP - General 07/16/10 documented as of this encounter
--- OUTSIDE RECORDS SUMMARY | 2024-04-30 13:41 | XMS_ITS | Encounter Summary ---
Author Organization Count Includes [facility] Address [facility] [place] [address] Care Team Providers Care Ultrasound Supervisor Name Role Phone Coni Lim MD Primary Care Provider Reason for Visit * Reason Comments Chest Pain * Auth/Cert Specialty Diagnoses / Procedures Referred By Contac t Referred To Contact Diagnoses Unstable angina chest pain Referral ID Status Reason Start Date Expiration Date Visits Re quested Visits Authorized [id number] 1 1 Encounter Details Date Type Department Care Team (Late st Contact Info) Description 09/13/2017 9:25 AM EST - 09/13/2017 11:05 AM EST Surgery [place] [id number] Agusto Ball II, MD [facility] [place] [address] CARDIAC CATHETERIZATION Social History Tobacco Use Types [...] Sign Reading Time Taken Comments Blood Pressure 104/68 09/13/2017 10:55 AM EST Pulse 75 09/13/2017 7:19 AM EST Temperature 36.7 ??C (98.1 ??F) 09/13/2017 7:19 AM ES T Respiratory Rate 16 09/13/2017 10:5 5 AM EST Oxygen Saturation 95% 09/13/2017 10: 55 AM EST Inhaled Oxygen Concentration - - Weight 101.6 kg (223 lb 15.8 oz) 09/13/2017 5:42 AM EST Height 180.3 cm (5' 11) 09/12/2017 5:45 PM EST Body Mass Index 31.52 09/12/2017 5:45 PM EST documented in this encounter Discharge Summaries * Giuseppe Pierson MD - 09/14/2017 8:03 AM EST Discharge Summary Patient Name: Romeo Coe Patient Age: 52 y.o. Language: Swiss Race: White Ethnicity: Not nor Admit date: [...] please contact your inpatient physician through the [facility] Breast Surgeon . Issues afterhours and on weekends will be handled by the strip machine operator on-call. Discharge Diagnoses (Hospital Problems) and Secondary [...] restenosis addressed with LAD stent angioplasty at [facility] in January 2014 (ABSORB Stent) 75% RCA [...] patient to come to the hospital today. Dry Cleaner Apprentice is Dr. Vyas. ?? Currently, he watches [...] lightheadedness/presyncopal symptoms. He will follow-up with his car park attendant, Dr. Vyas, approximately 1 week as an [...] PF, Split 07/30/2013 ??? Influenza Vaccine (Novel) [id number], Injectable 05/24/2009 ??? Influenza Vaccine w/Preservative, Split [...] Discharge References/Attachments PCI (PERCUTANEOUS CORONARY INTERVENTION): POST-OP ([place]) documented in this encounter Discharge Instructions * [...] AM Coni Lim MD , PCP [address] / [place] [address]ORDER[place] [address] 09/22/2017, 10:30 AM Florian Ling MD, Dry Cleaner Apprentice [place], [place] Your Inpatient Doctor(s) at [facility]: Christos Buchanan MD Daniel Storms, MD Sean Li, MD Jeffrey R Wunderlich, MD Your Primary Care Provider: Coni Lim MD [address] / [place] [id number] For questions regarding this document or issues relating to this hospitalization on the Medical Service, please contact your inpatient physician through the [facility] Breast Surgeon . Issues afterhours and on weekends will be handled by the Hospitalist staff on-call. * Attachments The following attachments cannot be sent through Care Everywhere. * PCI (PERCUTANEOUS CORONARY INTERVENTION): POST-OP ([place]) documented in this encounter Medications at Time [...] in 12/08), preserved EF (EF 60% in 2016), HTN, DM2, current smoker, family history of [...] Pierson MD, PGY-1 Cardiology Service Pager # [phone] * Aida Dietrich MSW - 09/13/2017 2:23 [...] copy of notice made and given to patient/media sales representative. Original notice to be scanned [...] in 12/08), preserved EF (EF 60% in 2016), HTN, DM2, current smoker, family history of [...] RCA in 12/08), preservedEF (EF 60% in 2016), HTN, DM2, current smoker, family history of [...] 09/12/2017 5:31 PM EST [facility] ED s/p chest [...] Buchanan MD PCP: Coni Lim MD PCP#: [phone] CC: Chest Pain Patient Active Problem List [...] restenosis addressed with LAD stent angioplasty at [facility] in January 2014 (ABSORB Stent) 75% RCA [...] patient to come to the hospital today. Dry Cleaner Apprentice is Dr. Vyas. Currently, he watches his [...] of Onset ??? Myocardial Infarction Father 46 [place], CABG ??? Diabetes Mother ??? Hypertension Mother [...] son (age 18 months), daughter 11 in [place], [place]. Takes care of his mother who has dementia and he takes her to dialysis. is disabled. Has grown daughter who is 29 years old. 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 Physical Exam: Vitals: Most Recent Vitals: 09/12/17 [...] restenosis addressed with LAD stent angioplasty at [facility] in January 2014 (ABSORB Stent) 75% RCA [...] two days ago. Patient has contacted his car park attendant who advised to presentto the ED. He [...] evaluated and discussed with Dr. Doherty - Vitals, triage and nursing notes reviewed. - I reviewed labs: CBC - WNL BMP -unremarkable Troponin -negative proBNP - 20 - I reviewed the EKG: Sinus Rhythm, rate 82 FL, QRS and QTc within normal limits No [...] Emergency Medicine *This note was dictated with IS Decisions software. Molly Mayer MD Resident 09/12/17 1713 Associated attestation - Buster Doherty DO - [...] Within the Past 30 Days: None at [facility], nor at outside hospitals, per pt's report. 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 I've been disabled for five years due to Fibromyalgia and Arthritis. Home Environment: Lives with his , Dasia in [place], [place]. Social & Family Supports/Community Resources: , Friends, neighbors Dasia Ceo (Spouse) [address] [facility] [phone] (H) [phone] (M) Behavioral Health History: Per pt report, has Anxiety and Depression, (on Cymbalta and Wellbutrin). Substance Use/Abuse: Current every day smoker; 1-5 cigarettes a day. EtOH: None. Illicit Drug Use: Marijuana every day, medical use. Other Pertinent/Service Specific Information: None Health/Prescription Coverage: Primary Insurance: MEDICARE PART A & B Secondary Insurance: MEDICAID [place] Prescription Coverage: Yes, has Silver Script. Preferred Pharmacy: [id number] [place] - [address] ? [address] [place] [address] ? Not a 24 hour pharmacy; exact hours not known Other: None Primary Care Provider: Coni Lim MD [phone] Patient/Caregiver Goals of Treatment: To return home and to his normal activities. Potential Needs for Transition of Care: Rehab/SNF: Pt has never been a pt in a rehab setting. Home Health: [facility] in the past (after right [...] transition of care planning. TIMBO Barrett Pager: [phone] * Plan of Care - Keisha Mae [...] Outcome: Ongoing (Interventions Implemented as Appropriate) 09/13/17202409/14/17 0342 09/14/17 0402 Gray Fall Risk History of Falling [...] Ongoing (Interventions Implemented as Appropriate) 09/13/17 0355 09/13/17 0600 Discharge Needs Assessment Concerns To Be Addressed denies needs/concerns at this time -- Discharge Disposition still a patient -- Living Environment Transportation Available -- family or friend will provide Goal: Interdisciplinary Rounds/Family Conf Outcome: Ongoing (Interventions Implemented as Appropriate) 09/13/17 0355 Interdisciplinary Rounds/Family Conf Participants nursing;patient;physician * Plan [...] Review Outcome: Ongoing (Interventions Implemented as Appropriate) 09/12/17202909/13/17 0355 Plan of Care Review Progress -- no change Coping/Psychosocial Plan Of Care Reviewed With patient -- OUTCOME EVALUATION NOTE: OUTCOME SUMMARY: A&O. Refer to flowsheets for VS. Denied CP or SOB. Heparin gtt maintained per protocol. NPO at MD for possible cath. SR on tele. Cont to monitor. PLAN MOVING FORWARD: paint laboratory technician echo INDIVIDUALIZED FALL PREVENTION INTERVENTIONS: Patient-specific fall [...] 1 month of chest pressure, told by car park attendant that if he decided to be seen [...] 3:40 AM EST DIFFERENTIAL, AUTOMATED Routine 09/14/19 18 3:40 AM EST PROTHROMBIN TIME Routine 09/14/2017 3:40 AM EST CBC (WITH DIFF) Routine 09/14/2017 3:40 AM EST MAGNESIUM Routine 09/14/2017 3:40 AM EST BASIC METABOLIC PANEL Routine 09/14/2017 3:40 AM EST CAREER AND TRANSITION TEACHER SCAN 09/14/2017 12:00 AM EST POCT GLUCOSE Routine 09/13/2017 7:50 PM EST POCT GLUCOSE Routine 09/13/2017 4:58 PM EST ECHO LMTD W/O CONTRAST W LMTD SPEC DOPP COLOR DOPP Routine 09/13/2017 2:44 PM EST Coronary artery disease, angina presence unspecified, unspecified vessel or lesion type, unspecified whether [place] or transplanted heart POCT GLUCOSE Routine 09/13/2017 11:32 AM EST CARDIAC CATHETERIZATION Routine 09/13/19 18 11:09 AM EST EKG 12-LEAD STAT 09/13/2017 7:49 AM EST Coronary artery disease, angina presence unspecified, unspecified vessel or lesion type, unspecified whether [place] or transplanted heart POCT GLUCOSE Routine 09/13/2017 [...] Routine 09/13/2017 6:32 AM EST CARDIAC ENZYMES ([facility]) STAT 09/13/2017 12:13 AM EST APTT STAT 09/13/2017 12:13 AM EST CARDIAC CATH SCAN 09/13/2017 12: 00 AM EST POCT GLUCOSE Routine 09/12/2017 9:14 PM EST CARDIAC ENZYMES ([facility]) STAT 09/12/2017 6:53 PM EST XR CHEST PA AND LATERAL STAT 09/12/19 2:02 PM EST HEMOGRAM STAT 09/12/2017 1:29 PM EST DIFFERENTIAL, AUTOMATED STAT 09/12/19 1:29 PM EST GOLD TUBE HOLD STAT 09/12/2017 1:29 PM EST BLUE TUBE HOLD STAT 09/12/2017 1:29 PM EST CARDIAC ENZYMES ([facility]P) STAT 09/12/2017 1:29 PM EST APTT STAT [...] * POCT Glucose (09/14/2017 7:32 AM EST) [facility] Glucose, POC 158 65 - 199 mg/dL [facility] Comment: Supplemental ranges: <140 mg/dL before meals <180 mg/dL all other times of the day Blood specimen (specimen) 09/14/2017 7:32 AM EST 09/14/2017 7:32 AM EST Christos Buchanan MD POINT OF CARE TEST O RDERABLES [facility] [place] [address] * Differential, Automated (09/14/2017 3:40 AM EST) [facility] Neutrophil % 51.2 % [facility] Neutrophil Absolute 4.61 1.70 - 6.10 x10(3)/mcL [facility] Lymph % 34.3 % [facility] Lymphocytes Abs 3.1 0.9 - 3.2 x10(3)/[facility] LABORATORY Monocyte % 8.6 % [facility] Monocyte Abs 0.8 0.3 - 0.9 x10(3)/[facility] LABORATORY Eos % 4.6 % [facility] Eosinophils Abs 0.4 0.0 - 0.4 x10(3)/[facility] LABORATORY Basophil % 0.9 % [facility] Baso Absolute 0.1 0.0 - 0.1 x10(3)/[facility] LABORATORY Immature Gran % 0.40 % [facility] Comment: Immature granulocytes(IG's)percentage and absolute count will include metamyelocytes, myelocytes, and promyelocytes. Blood smears from CBCs yielding IG's will be scanned manually for concordance. If this scan disagrees with the automated IG or if promyelocytes are noted, a manual differential will be performed. Immature Gran Absolute 0.04 0.00 - 0.04 x10(3)/[facility] LABORATORY Blood specimen (specimen) 09/14/2017 3:40 AM EST 09/14/2017 4:08 AM EST Narrative Resulting Agency Comment Spec In Lab Christos Buchanan MD HEMATOLOGY ORDERABLE S [facility] [place] [address] * Hemogram (09/14/2017 3:40 AM EST) White Blood Cell 9.0 4.0 - 9.5 x10(3)/[facility]ATORY Red Blood Cell 5.28 4.58 - 5.54 x10(6)/[facility] Hemoglobin 15.0 13.7 - 16.5 gm/dL [facility] Hematocrit 45.8 40.5 - 48.5 % [facility] Mean Cell Volume 86.7 82.9 - 93.1 fL [facility] Mean Cell Hemoglobin 28.4 27.5 - 32.1 pg [facility] Mean Cell Hemoglobin Concentration 32.8 32.0 - 35.7 gm/dL [facility] Platelet 188 145 - 357 x10(3)/[facility]ATORY RDW Standard Deviation 43.6 36.0 - 45.0 fL [facility] RDW coefficient of variation 13.7 11.4 - 13.8 % [facility] Mean Platelet Volume 10.4 7.6 - 12.9 fL [facility] NRBC% auto 0.0 % [facility] NRBC Absolute 0.000 0.000 - 0.000 x10(3)/[facility] Blood specimen (specimen) 09/14/2017 3:40 AM EST 09/14/2017 4:08 AM EST Narrative Resulting Agency Comment Spec In Lab Christos Buchanan MD HEMATOLOGY ORDERABLE S Performing Organization Address [facility] Co de Phone Number [facility] [place] [address] * Prothrombin Time (09/14/2017 3:40 AM EST) Prothrombin Time 13.3 11.8 - 14.0 sec [facility] International Normalization Ratio 1.0 0.9 - 1.1 [facility] Comment: An INR <2.0 indicates [...] Lab Christos Buchanan MD HEMATOLOGY ORDERABLE S [facility] [place] [address] * Magnesium (09/14/2017 3:40 AM EST) Magnesium 0.83 0.69 - 1.07 mmol/L [facility] Blood specimen (specimen) 09/14/2017 3:40 AM EST 09/14/2017 4:08 AM EST Narrative Resulting Agency Comment Spec In Lab Christos Buchanan MD CHEMISTRY ORDERABLES [facility] [place] [address] * Basic Metabolic Panel (non-fasting) (09/14/2017 3:40 AM EST) Glucose 108 65 - 199 mg/dL [facility] Comment:Diabetes: >=200 mg/d L plus symptoms Blood Urea Nitrogen 11 10 - 20 mg/dL [facility] Creatinine 1.05 0.80 - 1.50 mg/dL [facility] Sodium 143 135 - 145 mmol/L [facility] Potassium 4.0 3.5 - 5.0 mmol/L [facility] Comment: Please note: ??Patients with WBC >100,000 may have falsely elevated Potassium levels. ??For accurate Potassium quantification in these patients send serum separator tube (gold top) for subsequent determinations. ??Contact the Clinical Chemistry Laboratory if there are any questions. Chloride 106 98 - 107 mmol/L [facility] Carbon Dioxide 22 22 - 31 mmol/L [facility] Anion Gap 15 5 - 15 mmol/L [facility] Calcium 9.2 8.5 - 10.5 mg/dL [facility] Est Glomerular Filtration Rate >60 >=60 [facility] Comment: The reported eGFR should be multiplied by 1.2 for patients. The MDRD is not an appropriate measure of renal function for patients with body mass extremes or in patients with acute kidney failure. http://Userstorylab/DHnkdep http://SportEmp.com.RatingBug/DHMCnkf Blood specimen (specimen) 09/14/2017 3:40 AM EST 09/14/2017 4:08 AM EST Narrative Resulting Agency Comment Spec In Lab Christos Buchanan MD CHEMISTRY ORDERABLES Performing Organization Address [facility] Co de Phone Number [facility] [place] [address] * SCAN DOC: CAREER AND TRANSITION TEACHER (09/14/2017 12:00 AM EST) Anatomical Region Laterality Modality Other Narrative 09/14/2017 12:00 AM EST Ordered by an unspecified provider. Scanning Provider MEDIA MGR SCAN EXT O RDR/RSLT * POCT Glucose (09/13/2017 7:50 PM EST) Glucose, POC 113 65 - 199 mg/dL [facility] Comment: Supplemental ranges: <140 mg/dL before meals <180 mg/dL all other times of the day Blood specimen (specimen) 09/13/2017 7:50 PM EST 09/13/2017 7:50 PM EST Christos Buchanan MD POINT OF CARE TEST O RDERABLES Performing Organization Address [facility] de Phone Number [facility] [place] [address] * POCT Glucose (09/13/2017 4:58 PM EST) Glucose, POC 138 65 - 199 mg/dL [facility] Comment: Supplemental ranges: <140 mg/dL before meals <180 mg/dL all other times of the day Blood specimen (specimen) 09/13/2017 4:58 PM EST 09/13/2017 4:58 PM EST Christos Buchanan MD POINT OF CARE TEST O RDERABLES Performing Organization Address [facility] Co de Phone Number [facility] [place] [address] * ECHO LMTD W/O CONTRAST W LMTD SPEC DOPP COLOR DOPP (09/13/2017 2:44 PM EST) EF 65 [facility] Anatomical Region Laterality Modality Other 09/13/2017 Narrative 09/13/2017 3:16 PM EST Procedure: ?Transthoracic Echocardiogram Patient: ?LAQUITA Pop ? (Age): 1965(52y) Med Rec#: ? [id number] ?Sex: ?M ? Site Loc: ? [facility] ?Ht / Wt: ??180.3(cm)/101.6 Pt. Loc: ?Adult Floor ? BSA: ?2.21 Study Date: ?? 09/13/2017 ?Pt. Type: Outpatient Tape: ? Referring: Christos Buchanan ([id number]) Reading: Christos Buchanan ([id number]) Auto Leasing Manager: Meaghan Kim Diagnosis: *ICD-10-PCS Atherosclerotic heart disease of [place] coronary artery without angina pectoris (I25.10) BP: [...] E-wave Vmax ?0.6 ?m/sec ? MV deceleration vgrd006.5 ?msec ? MV A-wave Vmax ?0.5 ?m/sec [...] ? Mid-Inferior ?Normal ? Mid-Inferoseptal ?Normal ? [place]-Septal ? Normal ? [place]-Anterior ? Normal ? [place]-Lateral ?Normal ? [place]-Inferior ? Normal ? [place]-Tip ?Normal ? This report has been electronically signed by: Christos Buchanan M.D. ? 09/13/2017 15:16:25 Images reviewed and interpretation verified [facility] Cardiac Ultrasound Laboratory Procedure Note Christos Buchanan MD - 09/13/2017 Procedure: Transthoracic Echocardiogram Patient: LAQUITA Pop DOB(Age): 1965(52y) Med Rec#: [id number] Sex: M Site Loc: [facility] Ht / Wt: 180.3(cm)/101.6 Pt. Loc: Adult Floor BSA: 2.21 Study Date: 09/13/2017 Pt. Type: Outpatient Tape: Referring: Christos Buchanan ([id number]) Reading: Christos Buchanan ([id number]) Auto Leasing Manager: Meaghan Kim Diagnosis: *ICD-10-PCS Atherosclerotic heart disease of [place] coronary artery without angina pectoris (I25.10) BP: [...] MV E-wave Vmax 0.6 m/sec MV deceleration [id number] msec MV A-wave Vmax 0.5 m/sec MV [...] Normal Mid-Posterolateral Normal Mid-Inferior Normal Mid-Inferoseptal Normal [place]-Septal Normal [place]-Anterior Normal [place]-Lateral Normal [place]-Inferior Normal [place]-Tip Normal This report has been electronically signed by: Christos Buchanan M.D. 09/13/2017 15:16:25 Images reviewed and interpretation verified [facility] Cardiac Ultrasound Laboratory Christos Buchanan MD ECHO ORDERABLES * POCT Glucose (09/13/2017 11:32 AM EST) Glucose, POC 104 65 - 199 mg/dL [facility] Comment: Supplemental ranges: <140 mg/dL before meals <180 mg/dL all other times of the day Blood specimen (specimen) 09/13/2017 11:32 AM EST 09/13/2017 11:32 AM EST Christos Buchanan MD POINT OF CARE TEST O RDERABLES Performing Organization Address City/State/[facility] Co de Phone Number [facility] [place] [address] * CARDIAC CATHETERIZATION (09/13/2017 11:09 AM EST) Anatomical Region Laterality Modality Other Narrative 09/13/2017 11:33 AM EST ?[facility] ? Cardiac Catheterization/Intervention Report ? Patient Name: Romeo Coe. ? Procedure Date: 09/13/2017 ? A #: [id number] ? Primary Physician: Quinn, Agusto W ? Case #: [id number] ? File Name: [id number] ? Catheterization Order Number: [id number] ? [facility] ? Final Report [place], [place] ? Patient Name: ? Romeo A. Coe ? ID#: ?[id number] ? : ?1965 ? Procedure Date: ? [...] presented with: unstable angina (w/i 60 days). [place] ?Cardiovascular Society angina class was IV. This [...] Note Agusto Ball II, MD - 09/14/2017 [facility] Cardiac Catheterization/Intervention Report Patient Name: Romeo CoeNatalie Procedure Date: 09/13/2017 A #: [id number] Primary Physician: Agusto Ball Case #: [id number] File Name: [id number] Catheterization Order Number: [id number] [facility] FinalReport [place], [place] Patient Name: Romeo Coe ID#:[id number] :1965 Procedure Date: September 13, 2017 Case [...] presented with: unstable angina (w/i 60 days). [place] Cardiovascular Society angina class was IV. This [...] EKG 12 Lead (09/13/2017 7:49 AM EST) Pathologist [facility] [place] Ventricular rate 72 BPM MUSE SYSTEM Atrial Rate 72 BPM MUSE SYSTEM P-R Interval 138 ms MUSE SYSTEM QRS Duration 86 ms MUSE SYSTEM Q-T Interval 380 ms MUSE SYSTEM QTC Calculated (Bezet) 416 ms MUSE SYSTEM Calculated P [place] 5 degrees MUSE SYSTEM Calculated R [place] 23 degrees MUSE SYSTEM Calculated T [place] 28 degrees MUSE SYSTEM INTERPRETATION Normal sinus rhythm Normal ECG When compared with ECG of 12-SEP-2017 12:19, No significant change was found Confirmed by MD Segundo, Panda Leyva ([id number]) on 09/14/2017 9:09:15 AM MUSE SYSTEM 09/13/2017 7:49 AM EST 09/14/2017 9:09 AM EST Christos Buchanan MD ECG ORDERABLES MUSE SYSTEM * POCT Glucose (09/13/2017 7:24 AM EST) Pathologist [facility] [place] Glucose, POC 152 65 - 199 mg/dL [facility] Comment: Supplemental ranges: <140 mg/dL before meals <180 mg/dL all other times of the day Blood specimen (specimen) 09/13/2017 7:24 AM EST 09/13/2017 7:24 AM EST Christos Buchanan MD POINT OF CARE TEST O RDERABLES [facility] [place] [address] * (ABNORMAL) BMP w/fasting Glucose (09/13/2017 6:32 AM EST) Glucose Fasting 157(H) 65 - 99 mg/dL [facility] Comment: ?Fasting* Glucose Interpretive Criteria [...] of Diabetes Mellitus, Position Statement from the [employer]. ??Diabetes Care, Volume 33, Supplement 1, Aug 2009 Blood Urea Nitrogen 11 10 - 20 mg/dL [facility] Creatinine 0.99 0.80 - 1.50 mg/dL [facility] Sodium 142 135 - 145 mmol/L [facility] Potassium 3.7 3.5 - 5.0 mmol/L [facility] Comment: Please note: ??Patients with WBC >100,000 may have falsely elevated Potassium levels. ??For accurate Potassium quantification in these patients send serum separator tube (gold top) for subsequent determinations. ??Contact the Clinical Chemistry Laboratory if there are any questions. Chloride 106 98 - 107 mmol/L [facility] Carbon Dioxide 21(L) 22 - 31 mmol/L [facility] Anion Gap 15 5 - 15 mmol/L [facility] Calcium 9.4 8.5 - 10.5 mg/dL [facility] Est Glomerular Filtration Rate >60 >=60 [facility] Comment: The reported eGFR should be multiplied by 1.2 for patients. The MDRD is not an appropriate measure of renal function for patients with body mass extremes or in patients with acute kidney failure. http://SportEmp.com.RatingBug/DHnkdep http://Userstorylab/[facility] Blood specimen (specimen) 09/13/2017 6:32 AM EST 09/13/2017 6:41 AM EST Narrative Resulting Agency Comment Spec In Lab Christos Buchanan MD CHEMISTRY ORDERABLES Performing Organization Address [facility] Phone Number [facility] [place] [address] * (ABNORMAL) APTT (09/13/2017 6:32 AM EST) Partial Thromboplastin Time 113(H) 25 - 35 sec [facility] Comment: The recommended therapeutic range for full dose, unfractionated heparin at [facility] is 80 ? 114 seconds. The use of the anti-Xa (heparin) level rather than the PTT is recommended for monitoring anticoagulation intensity in critically ill patients receiving unfractionated heparin by continuous IV infusion. Blood specimen (specimen) 09/13/2017 6:32 AM EST 09/13/2017 6:41 AM EST Narrative Resulting Agency Comment Spec In Lab Christos Buchanan MD HEMATOLOGY ORDERABLE S Performing Organization Address [facility] Co de Phone Number [facility] [place] [address] * Differential, Automated (09/13/2017 6:32 AM EST) Neutrophil % 64.9 % [facility] Neutrophil Absolute 5.94 1.70 - 6.10 x10(3)/mcL [facility] Lymph % 24.7 % [facility] Lymphocytes Abs 2.3 0.9 - 3.2 x10(3)/[facility] LABORATORY Monocyte % 5.3 % [facility] Monocyte Abs 0.5 0.3 - 0.9 x10(3)/[facility] LABORATORY Eos % 4.0 % [facility] Eosinophils Abs 0.4 0.0 - 0.4 x10(3)/[facility] LABORATORY Basophil % 0.7 % [facility] Baso Absolute 0.1 0.0 - 0.1 x10(3)/[facility] LABORATORY Immature Gran % 0.40 % [facility] Comment: Immature granulocytes(IG's)percentage and absolute count will include metamyelocytes, myelocytes, and promyelocytes. Blood smears from CBCs yielding IG's will be scanned manually for concordance. If this scan disagrees with the automated IG or if promyelocytes are noted, a manual differential will be performed. Immature Gran Absolute 0.04 0.00 - 0.04 x10(3)/[facility] LABORATORY Blood specimen (specimen) 09/13/2017 6:32 AM EST 09/13/2017 6:41 AM EST Narrative Resulting Agency Comment Spec In Lab Christos Buchanan MD HEMATOLOGY ORDERABLE S [facility] [place] [address] * Hemogram (09/13/2017 6:32 AM EST) White Blood Cell 9.2 4.0 - 9.5 x10(3)/[facility] LABORATORY Red Blood Cell 5.29 4.58 - 5.54 x10(6)/[facility] LABORATORY Hemoglobin 15.4 13.7 - 16.5 gm/dL [facility] Hematocrit 44.9 40.5 - 48.5 % [facility] Mean Cell Volume 84.9 82.9 - 93.1 fL [facility] Mean Cell Hemoglobin 29.1 27.5 - 32.1 pg [facility] Mean Cell Hemoglobin Concentration 34.3 32.0 - 35.7 gm/dL [facility] Platelet 186 145 - 357 x10(3)/[facility] LABORATORY RDW Standard Deviation 42.9 36.0 - 45.0 fL [facility] RDW coefficient of variation 13.8 11.4 - 13.8 % [facility] Mean Platelet Volume 10.3 7.6 - 12.9 fL [facility] NRBC% auto 0.0 % [facility] NRBC Absolute 0.000 0.000 - 0.000 x10(3)/[facility] LABORATORY Blood specimen (specimen) 09/13/2017 6:32 AM EST 09/13/2017 6:41 AM EST Narrative Resulting Agency Comment Spec In Lab Christos Buchanan MD HEMATOLOGY ORDERABLE S Performing Organization Address [facility] Co de Phone Number [facility] [place] [address] * Blood culture (09/13/2017 6:32 AM EST) Blood Culture No growth at 5 days. [facility] Blood specimen (specimen) 09/13/2017 6:32 AM EST 09/13/2017 7:17 AM EST Comment:L FOREARM Narrative Resulting Agency Comment Spec In Lab Christos Buchanan MD MICROBIOLOGY - BLOOD ORDERABLES Performing Organization Address [facility] Co de Phone Number [facility] [place] [address] * Prothrombin Time (09/13/2017 6:32 AM EST) Prothrombin Time 13.8 11.8 - 14.0 sec [facility] International Normalization Ratio 1.1 0.9 - 1.1 [facility] Comment: An INR <2.0 indicates [...] MD HEMATOLOGY ORDERABLE S Performing Organization Address City/[facility]/ZIP Co de Phone Number [facility] [place] [address] * Magnesium (09/13/2017 6:32 AM EST) Magnesium 0.84 0.69 - 1.07 mmol/L [facility] Blood specimen (specimen) 09/13/2017 6:32 AM EST 09/13/2017 6:41 AM EST Narrative Resulting Agency Comment Spec In Lab Christos Buchanan MD CHEMISTRY ORDERABLES Performing Organization Address [facility] Co de Phone Number [facility] [place] [address] * Triglyceride (09/13/2017 6:32 AM EST) Triglyceride 153 <=199 mg/dL [facility] Blood specimen (specimen) 09/13/2017 6:32 AM EST 09/13/2017 6:41 AM EST Narrative Resulting Agency Comment Spec In Lab Christos Buchanan MD CHEMISTRY ORDERABLES Performing Organization Address [facility] Co de Phone Number [facility] [place] [address] * HDL/Cholesterol Profile (09/13/2017 6:32 AM EST) Cholesterol, Total 162 <=239 mg/dL [facility] HDL Cholesterol 44 >=40 mg/dL [facility] Cholesterol/HDL Ratio 3.7 ratio [facility] Chol/HDL Interpretation See Note [facility] Comment: Lipid management should be guided by a patient? s ASCVD risk, goals and preferences. ACC/AHA Guidelines recommend high intensity statin if clinical ASCVD or LDL greater than or equal to 190 mg/dL. http://SportEmp.com.com/RNZ-MWQ-Wxylrhond Measure LDL if Total Cholesterol minus HDL Cholesterol is greater than 220 mg/dL. Adults aged 40-75 with LDL 70-189 mg/dL should have their 10 year ASCVD risk estimated with the ACC/AHA ASCVD risk auto damage estimator http://tools.acc.org/LLBFZ-Jcok-Klbyhggbk/ Statin should be discussed if risk greater [...] Buchanan MD CHEMISTRY ORDERABLES Performing Organization Address [facility] Co de Phone Number [facility] [place] [address] * LDL Cholesterol, Direct (09/13/2017 6:32 AM EST) LDL Cholesterol, Direct 102 <=190 mg/dL [facility] Blood specimen (specimen) 09/13/2017 6:32 AM EST 09/13/2017 6:41 AM EST Narrative Resulting Agency Comment Spec In Lab Christos Buchanan MD CHEMISTRY ORDERABLES Performing Organization Address [facility] Co de Phone Number [facility] [place] [address] * (ABNORMAL) Hemoglobin A1c (09/13/2017 6:32 AM EST) Hemoglobin A1c 6.4(H) 4.3 - 5.6 % [facility] Comment: Reference Range: 4.3 - [...] Mellitus, Diabetes Care 2013; 36: Suppl. 1, S67-74 Estimated Average Glucose 137 mg/dL [facility] Comment: eAG equivalents for HbA1c [...] into estimated average glucose values. ??Diabetes Care 2008:31(8):0783-5081. Blood specimen (specimen) 09/13/2017 6:32 AM EST 09/13/2017 6:41 AM EST Narrative Resulting Agency Comment Spec In Lab Christos Buchanan MD CHEMISTRY ORDERABLES [facility] [place] [address] * pro-Brain Natriuretic Peptide (09/13/2017 6:32 AM EST) NT-proBNP 15 <=125 pg/mL [facility] Blood specimen (specimen) 09/13/2017 6:32 AM EST 09/13/2017 6:41 AM EST Narrative Resulting Agency Comment Spec In Lab Christos Buchanan MD CHEMISTRY ORDERABLES Performing Organization Address [facility] de Phone Number [facility] [place] [address] * (ABNORMAL) APTT (09/13/2017 12:13 AM EST) Pathologist [facility] [place] Partial Thromboplastin Time 50(H) 25 - 35 sec [facility] Comment: The recommended therapeutic range for full dose, unfractionated heparin at [facility] is 80 ? 114 seconds. The use of the anti-Xa (heparin) level rather than the PTT is recommended for monitoring anticoagulation intensity in critically ill patients receiving unfractionated heparin by continuous IV infusion. Blood specimen (specimen) 09/13/2017 12:13 AM EST 09/13/2017 12:42 AM EST Narrative Resulting Agency Comment Spec In Lab Christos Buchanan MD HEMATOLOGY ORDERABLE S Performing Organization Address [facility] de Phone Number [facility] [place] [address] * Cardiac Enzymes (LEB/CGP) (09/13/2017 12:13 AM EST) Troponin-T <0.01 0.00 - 0.00 ng/mL [facility] Comment: The 99th percentile for Troponin T is less than 0.01 ng/mL, any detectable cTnT concentration using this assay should be considered elevated. According to the third universal definition of myocardial infarction the following criteria with a clinical presentation consistent with acute myocardial ischemia meets the diagnosis for a myocardial infarction (PR). Detection of a rise and/or fall of cTnT, with at least one value greater than the 99th percentile (> or = 0.01) and with at least one of the following ?? Symptoms of ischemia ?? New or presumed new significant HS-ejqfkok-Y wave (ST-T) changes or new left bundle [...] additional sample may be indicated. Reference: Third [place] Definition of Myocardial Infarction. Journal of the [employer] College [employer] 2012;60:1581-98 Creatine Kinase 55 0 - 200 unit/L [facility] Blood specimen (specimen) 09/13/2017 12:13 AM EST 09/13/2017 12:42 AM EST Narrative Resulting Agency Comment Spec In Lab Christos Buchanan MD CHEMISTRY ORDERABLES Performing Organization Address [facility] Co de Phone Number [facility] [place] [address] * SCAN DOC: CARDIAC CATH (09/13/2017 12:00 AM EST) Anatomical Region Laterality Modality Cardiac Other Narrative 09/13/2017 12:00 AM EST Ordered by an unspecified provider. Scanning Provider MEDIA MGR SCAN EXT O RDR/RSLT * POCT Glucose (09/12/2017 9:14 PM EST) Glucose, POC 102 65 - 199 mg/dL [facility] Comment: Supplemental ranges: <140 mg/dL before meals <180 mg/dL all other times of the day Blood specimen (specimen) 09/12/2017 9:14 PM EST 09/12/2017 9:14 PM EST Christos Buchanan MD POINT OF CARE TEST O RDERABLES Performing Organization Address [facility] Co de Phone Number [facility] [place] [address] * Cardiac Enzymes (LEB/CGP) (09/12/2017 6:53 PM EST) Troponin-T <0.01 0.00 - 0.00 ng/mL [facility] Comment: The 99th percentile for Troponin T is less than 0.01 ng/mL, any detectable cTnT concentration using this assay should be considered elevated. According to the third universal definition of myocardial infarction the following criteria with a clinical presentation consistent with acute myocardial ischemia meets the diagnosis for a myocardial infarction (PR). Detection of a rise and/or fall of cTnT, with at least one value greater than the 99th percentile (> or = 0.01) and with at least one of the following ?? Symptoms of ischemia ?? New or presumed new significant EU-vuenxzu-L wave (ST-T) changes or new left bundle [...] additional sample may be indicated. Reference: Third [place] Definition of Myocardial Infarction. Journal of the [employer] College [employer]iology 2012;60:1581-98 Creatine Kinase 57 0 - 200 unit/L [facility] Blood specimen (specimen) 09/12/2017 6:53 PM EST 09/12/2017 7:02 PM EST Narrative Resulting Agency Comment Spec In Lab Christos Buchanan MD CHEMISTRY ORDERABLES Performing Organization Address City/State/[facility] Co de Phone Number [facility] [place] [address] * XR Chest PA & Lateral (Generic) [...] the abdomen. IMPRESSION No acute cardiopulmonary disease. Buster oDherty DO IM DX ORDERABLES * Prothrombin Time (09/12/2017 1:29 PM EST) Prothrombin Time 13.7 11.8 - 14.0 sec [facility] International Normalization Ratio 1.1 0.9 - 1.1 [facility] Comment: An INR <2.0 indicates [...] Lab Alejandro Blair MD HEMATOLOGY ORDERAB LES [facility] [place] [address] * APTT (09/12/2017 1:29 PM EST) Partial Thromboplastin Time 28 25 - 35 sec [facility] Comment: The recommended therapeutic range for full dose, unfractionated heparin at [facility] is 80 ? 114 seconds. The use [...] MD HEMATOLOGY ORDERAB LES Performing Organization Address [facility] Co de Phone Number [facility] [place] [address] * pro-Brain Natriuretic Peptide (09/12/2017 1:29 PM EST) NT-proBNP 20 <=125 pg/mL [facility] Blood specimen (specimen) Venous Draw / Unknown 09/12/2017 1:29 PM EST 09/12/2017 1:35 PM EST Narrative Resulting Agency Comment Spec In Lab Alejandro Blair MD CHEMISTRY ORDERABL ES Performing Organization Address [facility] Co de Phone Number [facility] [place] [address] * Gold Tube HOLD (09/12/2017 1:29 PM EST) Gold Hold Sample in lab. [facility] Blood specimen (specimen) Venous Draw / Unknown 09/12/2017 1:29 PM EST 09/12/2017 1:34 PM EST Alejandro Blair MD CHEMISTRY ORDERABL ES Performing Organization Address [facility] Co de Phone Number [facility] [place] [address] * Blue Tube HOLD (09/12/2017 1:29 PM EST) Blue Hold Sample in lab. [facility] Blood specimen (specimen) Venous Draw / Unknown 09/12/2017 1:29 PM EST 09/12/2017 1:34 PM EST Alejandro Blair MD HEMATOLOGY ORDERAB LES Performing Organization Address City/[facility]/ZIP Co de Phone Number [facility] [place] [address] * Differential, Automated (09/12/2017 1:29 PM EST) Neutrophil % 57.0 % [facility] Neutrophil Absolute 5.07 1.70 - 6.10 x10(3)/[facility] LABORATORY Lymph % 29.7 % [facility] Lymphocytes Abs 2.6 0.9 - 3.2 x10(3)/[facility] LABORATORY Monocyte % 7.8 % [facility] Monocyte Abs 0.7 0.3 - 0.9 x10(3)/[facility] LABORATORY Eos % 4.2 % [facility] Eosinophils Abs 0.4 0.0 - 0.4 x10(3)/[facility] LABORATORY Basophil % 0.8 % [facility] Baso Absolute 0.1 0.0 - 0.1 x10(3)/[facility] LABORATORY Immature Gran % 0.50 % [facility] Comment: Immature granulocytes(IG's)percentage and absolute count will include metamyelocytes, myelocytes, and promyelocytes. Blood smears from CBCs yielding IG's will be scanned manually for concordance. If this scan disagrees with the automated IG or if promyelocytes are noted, a manual differential will be performed. Immature Gran Absolute 0.04 0.00 - 0.04 x10(3)/[facility] LABORATORY Blood specimen (specimen) 09/12/2017 1:29 PM EST 09/12/2017 1:34 PM EST Narrative Resulting Agency Comment Spec In Lab Alejandro Blair MD HEMATOLOGY ORDERAB LES [facility] [place] [address] * Hemogram (09/12/2017 1:29 PM EST) [facility] White Blood Cell 8.9 4.0 - 9.5 x10(3)/[facility] LABORATORY Red Blood Cell 5.07 4.58 - 5.54 x10(6)/[facility] LAB[facility]ORY Hemoglobin 14.8 13.7 - 16.5 gm/dL [facility] Hematocrit 43.3 40.5 - 48.5 % [facility] Mean Cell Volume 85.4 82.9 - 93.1 fL [facility] Mean Cell Hemoglobin 29.2 27.5 - 32.1 pg [facility] Mean Cell Hemoglobin Concentration 34.2 32.0 - 35.7 gm/dL [facility] Platelet 208 145 - 357 x10(3)/[facility] LABORATORY RDW Standard Deviation 42.5 36.0 - 45.0 [facility] LABORATORY RDW coefficient of variation 13.7 11.4 - 13.8 % [facility] Mean Platelet Volume 10.4 7.6 - 12.9 [facility] LABORATORY NRBC% auto 0.0 % [facility] NRBC Absolute 0.000 0.000 - 0.000 x10(3)/[facility] LAB[facility]ORY Blood specimen (specimen) 09/12/2017 1:29 PM EST 09/12/2017 1:34 PM EST Narrative Resulting Agency Comment Spec In Lab Alejandro Blair MD HEMATOLOGY ORDERAB LES [facility] [place] [address] * (ABNORMAL) Basic Metabolic Panel (non-fasting) (09/12/2017 1:29 PM EST) [facility] Glucose 113 65 - 199 mg/dL [facility] Comment:Diabetes: >=200 mg/d L plus symptoms Blood Urea Nitrogen 10 10 - 20 mg/dL [facility] Creatinine 0.96 0.80 - 1.50 mg/dL [facility] Sodium 143 135 - 145 mmol/L [facility] Potassium 3.9 3.5 - 5.0 mmol/L [facility] Comment: Please note: ??Patients with WBC >100,000 may have falsely elevated Potassium levels. ??For accurate Potassium quantification in these patients send serum separator tube (gold top) for subsequent determinations. ??Contact the Clinical Chemistry Laboratory if there are any questions. Chloride 106 98 - 107 mmol/L [facility] Carbon Dioxide 20(L) 22 - 31 mmol/L [facility] Anion Gap 17(H) 5 - 15 mmol/L [facility] Calcium 9.2 8.5 - 10.5 mg/dL [facility] Est Glomerular Filtration Rate >60 >=60 [facility] Comment: The reported eGFR should be multiplied by 1.2 for patients. The MDRD is not an appropriate measure of renal function for patients with body mass extremes or in patients with acute kidney failure. http://SportEmp.com.RatingBug/DHnkdep http://Userstorylab/DHMCnkf Blood specimen (specimen) 09/12/2017 1:29 PM EST 09/12/2017 1:34 PM EST Narrative Resulting Agency Comment Spec In Lab Alejandro Blair MD CHEMISTRY ORDERABL ES [facility] [place] [address] * Cardiac Enzymes (LEB/CGP) (09/12/2017 1:29 PM EST) Troponin-T <0.01 0.00 - 0.00 ng/mL [facility] Comment: The 99th percentile for Troponin T is less than 0.01 ng/mL, any detectable cTnT concentration using this assay should be considered elevated. According to the third universal definition of myocardial infarction the following criteria with a clinical presentation consistent with acute myocardial ischemia meets the diagnosis for a myocardial infarction (PR). Detection of a rise and/or fall of cTnT, with at least one value greater than the 99th percentile (> or = 0.01) and with at least one of the following ?? Symptoms of ischemia ?? New or presumed new significant GD-thygcke-Y wave (ST-T) changes or new left bundle [...] additional sample may be indicated. Reference: Third [place] Definition of Myocardial Infarction. Journal of the [employer] College of [employer]iology 2012;60:1581-98 Creatine Kinase 65 0 - 200 unit/L [facility] Blood specimen (specimen) 09/12/2017 1:29 PM EST 09/12/2017 1:34 PM EST Narrative Resulting Agency Comment Spec In Lab Alejandro Blair MD CHEMISTRY ORDERABL ES [facility] [place] [address] * EKG 12 Lead (09/12/2017 12:19 PM EST) Ventricular rate 82 BPM MUSE SYSTEM Atrial Rate 82 BPM MUSE SYSTEM P-R Interval 136 ms MUSE SYSTEM QRS Duration 80 ms MUSE SYSTEM Q-T Interval 358 ms MUSE SYSTEM QTC Calculated (Bezet) 418 ms MUSE SYSTEM Calculated P [place] 13 degrees MUSE SYSTEM Calculated R [place] 33 degrees MUSE SYSTEM Calculated T [place] 34 degrees MUSE SYSTEM INTERPRETATION Normal sinus rhythm Normal ECG When compared with ECG of 25-NOV-2016 07:23, No significant change was found Confirmed by MD Meli, Tigre ([id number]) on 09/12/2017 4:16:03 PM MUSE SYSTEM 09/12/2017 12:1 9 PM EST 09/12/2017 4:16 PM EST Buster Doherty DO ECG ORDERABLES MUSE SYSTEM * SCAN DOC: CARDIAC CATH (09/12/2017 12:00 AM EST) Anatomical Region Laterality Modality Cardiac Other Narrative 09/12/2017 12:00 AM EST Ordered by an unspecified provider. Scanning Provider MEDIA MGR SCAN EXT O RDR/RSLT documented in this encounter Visit Diagnoses Not [...] on 09/13/17 at 0900, Until Discontinued, Routine Given 09/14/2017 8:30 AM EST 75 mg Given 09/13/2017 8:50 AM EST 75 mg DULoxetine (CYMBALTA) capsule 60 mg 60 mg, Oral, 2 TIMES DAILY, First dose on 09/12/17 at 2100, Until Discontinued, Routine Given 09/14/2017 8:30 AM EST 60 mg Given 09/13/2017 8:20 PM EST 60 mg Given 09/13/2017 8:51 AM EST 60 mg fentaNYL 50 mcg/mL multi-dose injection ONCE PRN, Starting on 09/13/17 at 1014, Until [place] 09/13/17 at 1015, Cath (Intra-Procedure), Routine Given 09/13/2017 10:14 AM EST 25 mcg fentaNYL 50 mcg/mL multi-dose injection ONCE PRN, Starting on 09/13/17 at 1028, Until 09/13/17 at 1037, Intra-Operative (Intra-Procedure), Routine Given 09/13/2017 10:28 AM EST 25 mcg fentaNYL 50 mcg/mL multi-dose injection ONCE PRN, Starting on 09/13/17 at 1105, Until [place] 09/13/17 at 1107, Cath (Intra-Procedure), Routine Given 09/13/2017 11:05 AM EST 25 mcg gabapentin (NEURONTIN) capsule 600 mg 600 mg, Oral, 2 TIMES DAILY BEFORE BREAKFAST AND LUNCH, First dose (after last modification) on [place] 09/13/17 at 0730, Until Discontinued, Routine Given [...] 09/12/2017 5:09 PM EST 4,000 Units heparin (porcine) injection ONCE PRN, Starting on 09/13/17 at 1037, Until 09/13/17 at 1037, Cath (Intra-Procedure), Routine Given 09/13/2017 10:37 AM EST 5,000 Units heparin (porcine) injection ONCE PRN, Starting on 09/13/17 at 1059, Until 09/13/17 at 1107, Cath (Intra-Procedure), Routine Given 09/13/2017 10:59 AM EST 3,000 Units heparin 25,000 units in dextrose 5% [...] 5:10 PM EST 1,000 Units/hr 20 mL/hr iohexol (OMNIPAQUE) 350 mg/mL solution ONCE PRN, Starting on 09/13/17 at 1108, Until 09/13/17 at 1108, Cath (Intra-Procedure), Routine Given 09/13/2017 11:08 AM EST 175 mLs isosorbide mononitrate (IMDUR) CR tablet 120 mg 120 mg, Oral, DAILY, First dose on 09/13/17 at 0900, Until Discontinued, DO NOT CRUSH OR OPEN, Routine Given 09/13/2017 8:52 AM EST 120 mg isosorbide mononitrate (IMDUR) CR tablet 60 mg 60 mg, Oral, ONCE, 1 dose, On 09/14/17 at 0830, DO NOT CRUSH OR OPEN, Routine Given 09/14/2017 8:30 AM EST 6 0 mg lidocaine (XYLOCAINE) 10 mg/mL (1 %) [...] Given 09/13/2017 8:52 AM EST 50 mg midazolam (PF) (VERSED) 1 mg/mL multi-dose injection ONCE PRN, Starting on 09/13/17 at 1014, Until 09/13/17 at 1015, Cath (Intra-Procedure), Routine Given 09/13/2017 10:14 AM EST 1 mg midazolam (PF) (VERSED) 1 mg/mL multi-dose injection ONCE PRN, Starting on 09/13/17 at 1028, Until 09/13/17 at 1037, Cath (Intra-Procedure), Routine Given 09/13/2017 10:28 AM EST 1 mg nicotine (NICODERM CQ) 14 mg/24 hr patch 14 mg 14 mg, Transdermal, Administer over 24 Hours, DAILY, First dose on 09/12/17 at 1800, Until Discontinued, Routine nicotine (NICODERM CQ) 14 mg/24 hr patch Patch Removal Transdermal, DAILY, First dose on 09/13/17 at [...] 9:41 AM EST 200 mL/hr 200 mL/hr sodium chloride 0.9% infusion CONTINUOUS PRN, Starting on 09/13/17 at 1037, Until 09/13/17 at 1037, Cath (Intra-Procedure) New Bag 09/13/2017 10:37 AM EST 200 mLs sodium chloride 0.9% infusion CONTINUOUS PRN, Starting on 09/13/17 at 1042, Until 09/13/17 at 1107, Cath (Intra-Procedure) New Bag 09/13/2017 10:42 AM EST 200 mLs topiramate (TOPAMAX) tablet 50 mg 50 mg, [...] - Reason: Transfer to a Procedural area)1134 ([facility] Unhold - Provider: Admin Adt) 0830 (Given - Provider: Rupal Munguia RN) buPROPion (WELLBUTRIN SR or ZYBAN) SR tablet 150 mg 150 mg, Oral, 2 TIMES DAILY, First dose on 09/12/17 at 2100, Until Discontinued, DO NOT CRUSH OR OPEN, Routine 2030 (Given - Provider: Keisha Mae RN) 0850 (Given - Provider: Rupal Munguia RN)1002 ([facility] Hold - Provider: Admin Adt - Reason: Transfer to a Procedural area)1134 ([facility] Unhold - Provider: Admin Adt)2019 (Given - Provider: Keisha Mae RN) 0830 (Given - Provider: Rupal Munguia RN) clopidogrel (PLAVIX) tablet 75 mg 75 mg, Oral, DAILY, First dose on 09/13/17 at 0900, Until Discontinued, Routine 0850 (Given - Provider: Rupal Munguia RN)1002 ([facility] Hold - Provider: Admin Adt - Reason: Transfer to a Procedural area)1134 ([facility] Unhold - Provider: Admin Adt) 0830 (Given - Provider: Rupal Munguia RN) DULoxetine (CYMBALTA) capsule 60 mg 60 mg, Oral, 2 TIMES DAILY, First dose on 09/12/17 at 2100, Until Discontinued, Routine 2030 (Given - Provider: Keisha Mae RN) 0851 (Given - Provider: Rupal Munguia RN)1002 ([facility] Hold - Provider: Admin Adt - Reason: Transfer to a Procedural area)1134 ([facility] Unhold - Provider: Admin Adt)2020 (Given - Provider: Keisha Mae RN) 0830 (Given - Provider: Rupal Munguia RN) gabapentin (NEURONTIN) capsule 600 mg 600 mg, Oral, 2 TIMES DAILY BEFORE BREAKFAST AND LUNCH, First dose (after last modification) on 09/13/17 at 0730, Until Discontinued, Routine 0800 (Given - Provider: Rupal Munguia RN)1002 ([facility] Hold - Provider: Admin Adt - Reason: Transfer to a Procedural area)1130 (Automatically Held - Provider: Admin Adt)1134 ([facility] Unhold - Provider: Admin Adt)1323 (Given - Provider: Rupal Munguia RN - Comment: late lunch) 0800 (Given - Provider: Rupal Munguia RN) gabapentin (NEURONTIN) capsule 900 mg 900 mg, Oral, NIGHTLY, First dose on 09/12/17 at 2100, Until Discontinued, Routine 2030 (Given - Provider: Keisha Mae RN) 1002 ([facility] Hold - Provider: Admin Adt - Reason: Transfer to a Procedural area)1134 ([facility] Unhold - Provider: Admin Adt)2019 (Given - [...] 0852 (Given - Provider: Rupal Munguia RN)1002 ([facility] Hold - Provider: Admin Adt - Reason: Transfer to a Procedural area)1134 ([facility] Unhold - Provider: Admin Adt) isosorbide mononitrate (IMDUR) CR tablet 60 mg (COMPLETED) 60 mg, Oral, ONCE, 1 dose, On 09/14/17 at 0830, DO NOT CRUSH OR OPEN, Routine 0830 (Given - Provider: Rupal Munguia, VERO) losartan (COZAAR) tablet 12.5 mg 12.5 mg, Oral, DAILY, First dose on 09/12/17 at 1800, Until Discontinued, Routine 1818 (Not Given - Provider: Mariela So RN - Reason: Patient/family refused) 0853 (Given - Provider: Rupal Munguia, VERO)1002 ([facility] Hold - Provider: Admin Adt - Reason: Transfer to a Procedural area)1134 ([facility] Unhold - Provider: Admin Adt) 0831 (Given - Provider: Rupal Munguia, VERO) meTOPROLOL tartrate (LOPRESSOR) tablet 50 mg 50 mg, Oral, 2 TIMES DAILY, First dose on 09/12/17 at 2100, Until Discontinued, Routine 2030 (Given - Provider: Keisha Mae, VERO) 0852 (Given - Provider: Rupal Munguia, VERO)1002 ([facility] Hold - Provider: Admin Adt - Reason: Transfer to a Procedural area)1134 ([facility] Unhold - Provider: Admin Adt)2020 (Given - Provider: Keisha Mae, VERO) 0830 (Given - Provider: Rupal Munguia, VERO) nicotine (NICODERM CQ) 14 mg/24 hr patch 14 mg(Linked Group 1) 14 mg, Transdermal, Administer over 24 Hours, DAILY, First dose on 09/12/17 at 1800, Until Discontinued, Routine 1818 (Not Given - Provider: Mariela So, VERO - Reason: Patient/family refused) 0900 (Not Given - Provider: Rupal Munguia RN - Reason: Patient/family refused)1002 ([facility] Hold - Provider: Admin Adt - Reason: Transfer to a Procedural area)1134 ([facility] Unhold - Provider: Admin Adt) 0900 (Not Given - Provider: Rupal Munguia RN - Reason: Patient/family refused) nicotine (NICODERM CQ) 14 mg/24 hr patch Patch Removal(Linked Group 1) Transdermal, DAILY, First dose on 09/13/17 at 1615, Until Discontinued, Remove nicotine 14 mg/24 hr patch 1002 ([facility] Hold - Provider: Admin Adt - Reason: Transfer to a Procedural area)1134 ([facility] Unhold - Provider: Admin Adt)1615 (Patch Not [...] hr patch. 0415 (Not Given - Provider: Keisha Mae RN - Reason: See comment - Comment: not placed; pt refused)1002 ([facility] Hold - Provider: Admin Adt - Reason: Transfer to a Procedural area)1134 ([facility] Unhold - Provider: Admin Adt)2099 (Not Given [...] 0852 (Given - Provider: Rupal Munguia RN)1002 ([facility] Hold - Provider: Admin Adt - Reason: Transfer to a Procedural area)1134 ([facility] Unhold - Provider: Admin Adt)2020 (Given - Provider: Keisha Mae, VERO) 0830 (Given - Provider: Rupal Munguia, VERO) pramipexole (MIRAPEX) tablet 0.5 mg 0.5 mg, Oral, NIGHTLY, First dose on 09/12/17 at 2100, Until Discontinued, Routine 2030 (Given - Provider: Keisha Mae RN) 1002 ([facility] Hold - Provider: Admin Adt - Reason: Transfer to a Procedural area)1134 ([facility] Unhold - Provider: Admin Adt)2019 (Given - Provider: Keisha Mae RN) rosuvastatin (CRESTOR) tablet 20 mg 20 mg, Oral, EVERY EVENING, First dose on 09/12/17 at 1800, Until Discontinued, Routine 1818 (Given - Provider: Mariela So RN) 1002 ([facility] Hold - Provider: Admin Adt - Reason: Transfer to a Procedural area)1134 ([facility] Unhold - Provider: Admin Adt)1639 (Given - Provider: Rupal Munguia RN) sodium chloride 0.9 % flush 5 mL 5 mL, Intravenous, 2 TIMES DAILY, First dose on 09/12/17 at 2100, Until Discontinued, Routine 2100 (Not Given - Provider: Keisha Mae RN - Reason: Contraindicated - Comment: iv infusing) 0900 (Not Given - Provider: Rupal Munguia RN - Reason: Contraindicated)1002 ([facility] Hold - Provider: Admin Adt - Reason: Transfer to a Procedural area)1134 ([facility] Unhold - Provider: Admin Adt)2100 (Not Given [...] (Given - Provider: Keisha Mae RN) 1002 ([facility] Hold - Provider: Admin Adt - Reason: Transfer to a Procedural area)1134 ([facility] Unhold - Provider: Admin Adt)2019 (Given - Provider: Keisha Mae RN) Continuous Medication Order 09/12/2017 09/13/2017 09/14/2017 heparin 25,000 units in dextrose 5% 500 [...] area)1134 ([facility] Unhold - Provider: Admin Adt) fentaNYL 50 mcg/mL multi-dose injection (CANCELED) ONCE PRN, Starting on 09/13/17 at 1014, Until Sun 18 at 1015, Cath (Intra-Procedure), Routine 1014 (Given - Provider: Marianne Barker) fentaNYL 50 mcg/mL multi-dose injection (CANCELED) ONCE PRN, Starting on 09/13/17 at 1028, Until Sun 18 at 1037, Intra-Operative (Intra-Procedure), Routine 1028 (Given - Provider: Marianne Barker) fentaNYL 50 mcg/mL multi-dose injection (CANCELED) ONCE PRN, Starting on 09/13/17 at 1105, Until Sun 18 at 1107, Cath (Intra-Procedure), Routine 1105 (Given - Provider: Marianne Barker) heparin (porcine) injection 0-4,000 Units (CANCELED)(Linked Group 2) 0-4,000 Units, Intravenous, BOLUS PER HEPARIN PROTOCOL, Starting on 09/12/17 at 1512, Until Sun 18 at 1015, Per Protocol, START ADJUSTMENT SCHEDULE [...] area)1015 ([facility] Unhold - Provider: Admin Adt) heparin (porcine) [...] for discomfort with PIV insertion, Routine 1002 ([facility] Hold - Provider: Admin Adt - Reason: Transfer to a Procedural area)1134 ([facility] Unhold - Provider: Admin Adt) lidocaine (XYLOCAINE) [...] RN)0809 (Given - Provider: Rupal Munguia RN)1002 ([facility] Hold - Provider: Admin Adt - Reason: Transfer to a Procedural area)1134 ([facility] Unhold - Provider: Admin Adt) oxyCODONE (ROXICODONE) immediate release tablet 10 mg 10 mg, Oral, 4 TIMES DAILY PRN, Starting on 09/12/17 at 1735, Until 09/14/17 at 1312, pain unresponsive to tylenol, Routine 1002 ([facility] Hold - Provider: Admin Adt - Reason: Transfer to a Procedural area)1134 ([facility] Unhold - Provider: Admin Adt)2024 (Given - [...] provided on this medication record., Routine 1002 ([facility] Hold - Provider: Admin Adt - Reason: Transfer to a Procedural area)1134 ([facility] Unhold - Provider: Admin Adt) sodium [...] PRN, Starting on 09/13/17 at 1037, Until Sun 118 at 1037, Cath (Intra-Procedure) 1037 (New Bag - Provider: Marianne Barker) sodium chloride 0.9% infusion (CANCELED) CONTINUOUS PRN, Starting on Sun 18 at 1042, Until Sun 18 at 1107, Cath (Intra-Procedure) 1042 (New Bag [...] CONTINUOUS, Starting on 09/12/17 at 1515, Until Sun 18 at 1015, BEGIN infusion at 1,000 units [...] UA) documented in this encounter Care Teams Ultrasound Supervisor Relationship Specialty Start Date End Date Coni Lim MD [address] [place] [address] PCP - General 07/16/10 documented as of this encounter
--- OUTSIDE RECORDS SUMMARY | 2024-04-30 13:41 | XMS_ITS | Encounter Summary ---
Author Organization [facility] [place] [address] Care Team Providers Care Criminal Justice Professor Name Role Phone Coni Lim MD Primary Care Provider [phone] Encounter Details Date Type Department Care Team (Late st Contact Info) Description 08/25/2017 Telephone Cardiology at [address] [id number] Zarina Jiang Social History Tobacco Use Types Packs/Day Years [...] encounter Miscellaneous Notes * Telephone Encounter - Zarina Forman - 08/25/2017 3:48 PM EST I spoke with Mr. Coe in regards to his Absorb 3 4 year follow up. He said that his stents were replaced in [facility] and he didn't feel he needed to be in the trial anymore. I asked the patient to complete the survey based on his chest pain and he refused. He withdrew from the study. documented in this encounter Plan of Treatment Not on file documented as of this encounter Visit Diagnoses Not on filedocumented in this encounter Care Teams Criminal Justice Professor Relationship Specialty Start Date End Date Coni Lim MD [address] [place] [address] PCP - General 07/16/10 documented as of this encounter
--- OUTSIDE RECORDS SUMMARY | 2024-04-30 13:41 | XMS_ITS | Encounter Summary ---
Author Organization [facility] Address [facility] [address] Care Team Providers Care Fishing Game Warden Name Role Phone Coni Lim MD Primary Care Provider [phone] Encounter Details Date Type Department Care Team (Late st Contact Info) Description 03/13/2019 11:10 PM EDT Ancillary Procedure [place] [address] Wale Mckeon MD [facility] [address] [place] [id number] Social History Tobacco Use Types Packs/Day Years [...] FILM LIBRARY STORAGE ONLY DX CHEST Routine 03/13/2019 11:09 PM EDT documented in this encounter Results * Film Library- Storage Only DX Chest (03/13/2019 11:09 PM EDT) Narrative [facility] - 03/13/2019 11:09 PM EDT This exam is auto-finalizing. It's purpose is for storage only. Wale Mckeon MD IMG FILM LIBRARY ORD ERABLES [place], [place] documented in this encounter Visit Diagnoses Not on filedocumented in this encounter Care Teams Fishing Game Warden Relationship Specialty Start Date End Date Coni Lim MD [address] [place] [address] PCP - General 07/16/10 documented as of this encounter
--- OUTSIDE RECORDS SUMMARY | 2024-04-30 13:41 | XMS_ITS | Encounter Summary ---
Author Organization [facility] [place] [address] Care Team Providers Care Residential Support Worker Name Role Phone Coni Lim MD Primary Care Provider [phone] Encounter Details Date Type Department Care Team (Late st Contact Info) Description 08/07/2017 Notes Only Cardiology at [address] [phone] Marianne Barker Social History Tobacco Use Types Packs/Day Years [...] as of this encounter Progress Notes * Marianne Barker - 08/07/2017 2:58 PM EST ABSORB III Clinical Trial Progress Note Mr. Romeo Coe is a participant in the ABSORB III Clinical Trial. As such there is a protocolmandated visit at the four (4) year time point. Attempt to reach Mr. Coe in regard to this have been unsuccessful. Messages have been left at his home phone number on 07/17/2017, 07/27/2017, 07/28/2017 and 08/03/2017 without response. Today a certified letter was sent to his home address asking him to contact us. documented in this encounter Plan of Treatment Not on file documented as of this encounter Visit Diagnoses Not on filedocumented in this encounter Care Teams Residential Support Worker Relationship Specialty Start Date End Date Coni Lim MD [address] [place] [address] PCP - General 07/16/10 documented as of this encounter
--- OUTSIDE RECORDS SUMMARY | 2024-04-30 13:42 | XMS_ITS | Encounter Summary ---
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 Name Role Phone Coni Lim MD Primary Care Provider [phone] Reason for Visit * Auth/Cert Specialty Diagnoses / Procedures Referred By Ruby garvin Referred To Contact Diagnoses Unstable angina [place] Referral ID Status Reason Start Date Expiration Date Visits Re quested Visits Authorized [id number] 1 1 Encounter Details Date Type Department Care Team (Late st Contact Info) Description 11/24/2016 2:40 PM EDT - 11/24/2016 3:[address] [place] [address] Anton Horvath MD [facility] [place] [address] CARDIAC CATHETERIZATION Social History Tobacco Use Types [...] Sign Reading Time Taken Comments Blood Pressure 101/59 11/24/2016 11:42 AM EDT Pulse 59 11/24/2016 11:42 AM EDT Temperature 36.7 ??C (98.1 ??F) 11/24/2016 11:42 AM E DT Respiratory Rate 18 11/24/2016 11:42 AM EDT Oxygen Saturation 97% 11/24/2016 11:42 AM EDT Inhaled Oxygen Concentration - - Weight 93.9 kg (207 lb 0.2 oz) 11/24/2016 6:28 A M EDT Height 177.8 cm (5' 10) 11/22/2016 2:10 AM EDT Body Mass Index 29.92 11/22/2016 2:10 AM EDT documented in this encounter Discharge Summaries * Keisha Rose APRN - 11/22/2016 7:46 PM EDT Images from the original note were not included. Discharge Summary Patient Name: Romeo Coelho Patient Age: 51 y.o. Language: Bulgarian Race: White Ethnicity: Not nor Admit date: 11/21/2016 Discharge date and time: 11/25/2016 Attending Physician: Roque Sanches MD Discharge Physician: Roque Sanches MD Follow-up Recommendations for Providers: 1. Admitted with unstable angina. Drug-eluting stent RCA. 2. Requires dual antiplatelet therapy for 1 year 3. Smoking cessation Inpatient Provider Contact Information: Keisah Rose APRN [facility] [place] # [id number] Discharge Diagnoses (Hospital Problems) and Secondary Diagnoses (Chronic Problems): Active Hospital Problems Diagnosis ??? Unstable angina ??? CAD (coronary artery disease) -Coronary Angio 07/29/2013: 65% (FFR 0.74) mid LAD lesion s/p PCI with 3.5 X 18 mm JACINDA - [facility] 2009 post abnormal nuc stress +IW, EF normal - Recurrent angina, CCS class III - Cardiac catheterization 06/03/2012: 2 vessel CAD (LAD and LCX), +FFR of both lesions s/p PCI to pOM1 (3.0 x 18 mm Xience JACINDA) and mLAD (3.0 x 20 mm Promus Element JACINDA) ??? DM (diabetes mellitus) ??? HTN (hypertension) ??? Smoker ??? Dyslipidemia Resolved Hospital Problems Diagnosis Date Resolved No resolved problems to display. Active Non-Hospital Problems Diagnosis ??? Chest pain ??? Hx-TIA (transient ischemic attack) 2002, residual numbness in R hand and leg reported per pt, no mechanical limitations ??? GERD (gastroesophageal reflux disease) Operations/Major Procedures: Coronary Angiography (11/24/16): Dominance: Right ? Left Main:mild diffuse disease of the entire vessel segment of the left main artery. ? Left Anterior Descending:mild diffuse disease of the entire vessel segment of the left anterior descending artery (LAD). The previously placed stent is patent. The proximal segment of the LAD had a diffuse 30% stenosis. ? Left Circumflex: mild diffuse disease of the entire vessel segment of the left circumflex artery (LCX). ? Right Coronary Artery:mild diffuse disease of the entire vessel segment of the right coronary artery (RCA). The proximal segment of the RCA had a single discrete 75% stenosis. There also was a 30% ectatic single discrete stenosis of the distal segment of the RCA. ? Intervention Summary: Right Coronary Artery (proximal 75% lesion): a de abby lesion, type B1 moderate risk lesion, the culprit lesion. Vessel flow pre intervention was DANIEL 3. A premounted 3.50 x 12 mm Resolute (JACINDA) was deployed. The final outcome was defined as successful.There was no residual stenosis following this intervention. The final DANIEL flow was 3. Conclusions: * One vessel coronary artery disease (RCA) * Successful stent insertion of the proximal RCA lesion * Drug eluting stent placed. History of Presentation: This 51 year-old male with known CAD (65% mid LAD & 70% ostial OM-2 lesions stented in May 2012, an additional 65% mid-LAD lesion stented in Jul 2013, in- stent restenosis addressed with LAD stentangioplasty at [facility] in January 2014), DM2, HTN, dyslipidemia, continued tobacco use, and obesity was transferred [facility] [place] [facility] [place] evaluation of unstable angina. Prior t o his presentation to the referring hospital, the patient had experienced episodes of retrosternal chest pressure and pain with radiation to the back, jaw, and left arm. The symptoms often resolved with rest or after the administration of sublingual nitroglycerine. His chest symptoms were often acco mpanied by shortness of breath, diaphoresis, palpitations, nausea, and episodes of vomiting. Since his anginal symptoms continued to worsen and were sometimes present at rest, he presented to his local hospital for prompt evaluation. A few days prior to this admission, the patient's daughter had apparently witnessed a syncopal episode whereby the patient had lost consciousness for a few seconds an d had fallen on his buttocks. No seizure like activity was witnessed, and he was not incontinent ofeither urine or feces. He professed faithful compliance with his medications. Hospital Course: Unstable angina The patient was admitted to the Cardiac Care Unit and monitored on telemetry which showed the presence of an enduring sinus rhythm. He described crescendo anginal symptoms (present with exertion and at rest). Serial cardiac enzymes were NOT elevated. An echocardiogram obtained during this admission showed left ventricular segmental wall motion abnormalities (basal anterolateral, mid anterolateral, and mid inferolateral wall segments). Coronary angiography performed on 11/24/16 revealed a 75% proximal RCA lesion that was addressed with a drug-eluting stent. The patient was referred for cardiac rehabilitation. He was discharged home on dual antiplatelet therapy and a beta alex. ?? DM2 HA1c 5.6 was noted during this admission. He was placed on a carbohydrate controlled diet and sliding scale insulin. ?? HTN BP during last 24-hours 97-123/55-78. Patient is on losartan 12.5 mg + metoprolol 50 mg po bid Dyslipidemia A fasting lipid panel obtained during this admission showed the following: total cholesterol 125, triglycerides 171, LDL 52, and HDL 39 while taking rosuvastatin 10 mg daily prior to admission. This regimen was continued during this admission and at the time of his discharge. Obesity Body mass index is 30.15 kg/(m^2). Continued tobacco use. The patient was strongly counseled to stop smoking, and a referral to the tobacco treatment programwas made.. Nicotine replacement therapy ?? Disposition The patient was evaluated by the cardiac rehabilitation team. He was able to ambulate along the corridor of the unit without provoking any anginal symptoms. He was discharged home in stable condition. Interval follow-up with primary care and cardiology was scheduled prior to his discharge. Functional and Cognitive Status: -Ambulatory and cognitively intact. Important Studies and Lab Data: Labs: Lab Results Component Value Date WBC 9.0 11/25/2016 HGB 14.5 11/25/2016 HCT 44.2 11/25/2016 PLATELET 214 11/25/2016 Recent Labs 11/21/162031 INR 1.0 Lab Results Component Value Date NA 142 11/25/2016 K 3.9 11/25/2016 CL 108 (H) 11/25/2016 CO2 19 (L) 11/25/2016 BUN 10 11/25/2016 CREATININE 0.87 11/25/2016 Recent Labs 11/21/162031 TSH 2.29 Recent Labs 11/21/162031 HA1C 5.6 Recent Labs 11/25/16 0452 11/22/16 1711 11/22/16 1006 CK 139 46 48 TROPONINT <0.03 <0.03 <0.03 Lab Results Component Value Date CHLPL 125 11/22/2016 HDL 39 (L) 11/22/2016 CHOLHDL 3.2 11/22/2016 TRIG 171 11/22/2016 LDLCHOL 52 11/22/2016 LDLDIRECT 108 (H) 06/04/2012 Studies: Echocardiogram (11/22/16) 1. The left ventricular chamber size is normal. Left ventricular wall thickness is normal. There isnormal global left ventricular systolic function. The quantitative left ventricular ejection fraction by biplane Mcleod's method is 60%. There are left ventricular segmental wall motion abnormalities present, as shown in the diagram below. 2. The right ventricle is normal in size. Right ventricular global systolic function is normal. ?? Study Quality: Technically limited ?? Left Ventricle: The left ventricular chamber size is normal. Left ventricular wall thickness is normal. No ventricular septal defect is visualized. There is normal global left ventricular systolic function. The quantitative left ventricular ejection fraction by biplane Mcleod's method is 60%. There are left ventricular segmental wall motion abnormalities present, as shown in the diagram below. Left ventricular diastolic function is normal. The basal anterolateral, mid anterolateral, and mid inferolateral wall segments are hypokinetic (score 2). The overall wall motion score index is 1.19 ?? Left Atrium: The left atrium is probably normal in size.No atrial septal defect is visualized. ?? Right Ventricle: The right ventricle is normal in size. Right ventricular global systolic function is normal. Pulmonary artery hypertension could not be assessed due to inadequate tricuspid regurgitation jet. ?? Right Atrium: The right atrium is normal in size. ?? Aortic Valve: The aortic valve is not well visualized. There is no evidence of aortic valve stenosis. There is no evidence of aortic regurgitation. ?? Mitral Valve: The mitral valve leaflets appear normal. There is trace mitral regurgitation present. ?? Tricuspid Valve: The tricuspid valve is probably normal. There is trace tricuspid regurgitation present. ?? Pulmonic Valve: The pulmonic valve is not well visualized. ?? Pericardium: There is no pericardial effusion. A pericardial fat pad is visualized. ?? Aorta: The aortic root is normal in size. The ascending aorta was not well visualized. The aortic arch was not well visualized. ?? Pulmonary Artery: The main pulmonary artery is not well visualized. ?? Venous: There is a greater than 50% respiratory change in the inferior vena cava dimension. Pending Studies and Lab Data: -n/a Discharge Conditions/Prognosis: -ambulating Discharge to: -home Updated Allergies/ADRs: Allergies Allergen Reactions ??? Thallium-201 Severe cardiac event ??? Lisinopril Other (See Comments) cough ??? Paper Tape [Adhesive Tape] Rash Immunizations Given this Hospitalization: Immunization History Administered Date(s) Administered ??? Influenza PF, Split 07/30/2013 ??? Influenza Vaccine (Novel) [id number], Injectable 05/24/2009 ??? Influenza Vaccine w/Preservative, Split 06/15/2012 ??? Influenza Vaccine, Whole 06/21/2008, 05/24/2009 ??? Pneumococcal Polyvalent 23 05/24/2009 Discharge Medications: Your Medications New Medications Dose Details nicotine polacrilex 4 mg Lozg Commonly known as: COMMIT Place 1 lozenge inside cheek as needed for Smoking cessation. 4 mg Quantity: 100 tablet Refills: 0 varenicline 0.5 mg (11)- 1 mg (42) Dspk Commonly known as: CHANTIX Take 0.5 mg by mouth daily. Day 1-3: Take 0.5 mg daily. Day 4-7: take 0.5 mg bid. Day 8 forward-take 1mg bid 0.5 mg Quantity: 53 tablet Refills: 0 Continued medications, unchanged Dose Details aspirin 325 mg Tab Take 325 mg by mouth daily. 325 mg Refills: 0 buPROPion 150 mg Tbsr Commonly known as: WELLBUTRIN SR or ZYBAN [...] by mouth daily. 12.5 mg Refills: 0 metFORMIN 850 mg Tab Commonly known as: GLUCOPHAGE Take 1 tablet by mouth daily. Start taking on: 11/27/2016 850 mg Quantity: 60 tablet Refills: 12 meTOPROLOL tartrate 50 mg Tab Commonly known as: LOPRESSOR Take 50 mg by mouth 2 times daily. 50 mg Refills: 0 nitroGLYcerin 0.4 mg Subl Commonly known as: NITROSTAT Place 0.4 mg under the tongue every 5 minutes as needed. 0.4 mg Refills: 0 oxyCODONE 10 mg Tab Commonly known as: ROXICODONE Take 10 mg by mouth 4 times daily as needed. 10 mg Refills: 0 pantoprazole 40 mg Tbec Commonly known as: PROTONIX Take 40 mg by mouth daily. 40 mg Refills: 0 pramipexole 0.5 mg Tab Commonly known as: MIRAPEX Take 0.5 mg by mouth nightly. 0.5 mg Refills: 0 ranolazine 500 mg Tb12 Commonly known as: RANEXA Take 500 mg by mouth 2 times daily. 500 mg Refills: 0 rosuvastatin 10 mg Tab Commonly known as: CRESTOR Take 1 tablet by mouth daily. 10 mg Quantity: 30 tablet Refills: 3 topiramate 50 mg Tab Commonly known as: TOPAMAX Take 50 mg by mouth nightly. 50 mg Refills: 0 TYLENOL ARTHRITIS 650 mg Tbsr Take 650 mg by mouth every 8 hours as needed. Do not exceed 6 tabs in 24 hours Generic drug: acetaminophen 650 mg Refills: 0 Smoking Status at Discharge: History Smoking Status ??? Current Every Day Smoker ??? Packs/day: 0.50 ??? Types: Cigarettes Smokeless Tobacco ??? Former User Comment: declines smoking cesation info. Starting Chantix next week. Instructions Given to Patient at Discharge: There are no outpatient Patient Instructions on file for this admission. General Instructions Cardiology Discharge Instructions Please call your doctor if you experience chest pain or shortness of breath or if pain and/or swelling along the legs occurs. If you have non-emergent questions between now and the time of your follow-up appointments, you may contact one of the cardiology nurses at [facility] during normal business hours(Thursday through Thursday, 8 AM to 5 PM) at . During nonbusiness hours (evenings, nights, weekends, holidays), you may contact the front of house manager sign language interpreter at . Return to work: -unemployed Driving: -No driving for 48 hours after catheterization. Follow up Appointments: ?? PCP: Coni Lim MD will see you on November 28, 2016 at 2:45 PM at [facility]. You may contact her office at [phone] with any questions or concerns ?? Cardiology: Please see Dr. Ling in [place], [place] on December 16 at 11:00 AM. His office may be contacted at with any questions or concerns. Home oxygen therapy: N/A Arrangements for VNA/home care: none Discharge References/Attachments None Keisha Rose APRN Nurse Practitioner-Department of Cardiology [email or web address] Pager [phone] Phone number: [phone] Fax number [phone] I have discussed this patient with attending Dr. Roque Sanches ?? documented in this encounter Discharge Instructions * Discharge Instructions* Keisha Rose APRN - 11/25/2016 8:54 AM EDT Cardiology Discharge Instructions Please call your doctor if you experience chest pain or shortness of breath or if pain and/or swelling along the legs occurs. If you have non-emergent questions between now and the time of your follow-up appointments, you may contact one of the cardiology nurses at [facility] during normal business hours(Thursday through Thursday, 8 AM to 5 PM) at . During nonbusiness hours (evenings, nights, weekends, holidays), you may contact the front of house manager sign language interpreter at . Return to work: -unemployed Driving: -No driving for 48 hours after catheterization. Follow up Appointments: ?? PCP: Coni Lim MD will see you on November 28, 2016 at 2:45 PM at [facility]. You may contact her office at [phone] with any questions or concerns ?? Cardiology: Please see Dr. Ling in [place], [place] on December 16 at 11:00 AM. His office may be contacted at with any questions or concerns. Home oxygen therapy: N/A Arrangements for VNA/home care: none * Patient Instructions* Darcy Staley APRN - 11/25/2016 10:54 AM EDT Congratulations for quitting smoking! Your quit date for quitting smoking is 11/21/16. You have chosen to quit smoking using Chantix and Nicotine lozenges. Varenicline/Chantix The active ingredient in Varenicline/Chantix works in two ways. It cuts the pleasure of smoking andalso reduces the withdrawal symptoms. Start taking this medication one week before your quit date. It comes in a dose pack. The first week pack contains white pills that are 0.5 mg tablets. Take 0.5 mg once a day for 3 days then increase to 0.5 mg twice a day for 4 days. Then increase to 1 mg (bluetablets) twice a day for 3 months. This medication should be taken in the middle of your largest meal(s) with a full glass of water. DO NOT TAKE ON AN EMPTY STOMACH. One course of Varenicline/Chantixis 3 months, two courses is 6 months. Taking Varenicline/Chantix for 2 courses, or 6 months, may significantly increase your chances of quitting tobacco successfully for good! The most common side effect is nausea and this can be reduced by taking as directed above. You may also experience difficulty sleeping or abnormal/vivid or strange dreams. This may be reduced by taking the medication earlier in the day. Be sure to take with enough food to avoid nausea. Of note, the FDA has removed the Black Box warnings about Chanitix possibly being associated with psychological adverse effects, suicide and suicidal ideation. References: Treating Tobacco Use and Dependence, Clinical Practice Guideline 2008 Update, U.S. Department of Health and Human Services, December 2007 U.S. Food and Drug Administration Recommendations, revised directions for use of Nicotine Replacement Therapy , November 23, 2012: https://www.federalregister.gov/articles//2013-67359/modificati vpe-lo-pzefmfng-kv-mljpfjnn-vvtoltmnhcr-gkqadkt-lsqvyfwo-usf-akwy-cgx-lmfkbza-hu man-use Nicotine lozenge instructions: Use the 4 mg lozenges Nicotine lozenges must be used properly in order to be effective. Nicotine from the lozenge is absorbed through the mucous membranes in your mouth at a certain acidity or pH level. Therefore do not eat or drink anything but water for 15 minutes prior to or during use. Place the nicotine lozenge on the tongue or between the cheek and the jaw. Allow the lozenge to dissolve. Do not bite, chew or swallow whole or in pieces. Do not ???work?? the lozenge like a hard candy or you may create too much saliva and swallow this extra liquid which may upset your stomach. The most common side effects from Nicotine lozenges are nausea, hiccups and heartburn. This can be reduced by following the instructions for proper use. Nicotine lozenges come in two strengths, 2 mg and 4 mg. You should use the 2 mg lozenge if you smoke your first cigarette more than 30 minutes after waking. You should use the 4 mg lozenge if you smoke your first cigarette less than 30 minutes after waking. You can use up to 20 lozenges a day. Nicotine lozenges can be combined with Nicotine patches for increased chances of successfully quitting tobacco for good! The US Food and Drug Administration has recently released a statement that there are no significantrisks associated with the use of Nicotine Replacement Therapy products for longer than the labeled number of weeks of use. References: Treating Tobacco Use and Dependence, Clinical Practice Guideline 2008 Update, U.S. Department of Health and Human Services, December 2007 U.S. Food and Drug Administration Recommendations, revised directions for use of Nicotine Replacement Therapy , November 23, 2012: https://www.federalregister.gov/articles//2013-12505/modificati uma-fr-ozextmer-td-unawswnt-exlrsvtjwuv-hqeawje-jfrlggap-avf-wwdf-uqr-yoogrnv-hu man-use Remember to cut down on regular coffee intake to no more than 2-3 eight ounce cups a day. Substitute decaf or herbal tea, water or any other non caffeine drink for regular coffee to avoid rising caffeine levels when you don't smoke. You have been referred to the [place] Quitline and should expect to receive a phone call from them within the next several days. If you do not hear from them within one week of discharge please call them.The number is in the [employer] Tobacco Cessation folder you were given. Contact HENRIQUE Rapp, CTTS-M if you have any questions about your tobacco treatment medications or this quit attempt at . documented in this encounter Medications at Time [...] tablet Take 10 mg by mouth nightly. metFORMIN (GLUCOPHAGE) 850 mg Tablet Take 1 tablet by mouth daily. 60 tablet 12 11/27/2016 09/12/2017 nicotine polacrilex (COMMIT) [address] [...] mg by mouth 2 times daily. 03/16/2019 aspirin 325 mg Tablet Take 325 mg by mouth daily. 09/14/2017 oxyCODONE (ROXICODONE) 10 mg Tablet Take 10 mg by mouth 4 times daily as needed. 2021 losartan (COZAAR) 25 mg Tablet Take 12.5 mg by mouth daily. 03/16/2019 ranolazine (RANEXA) 500 mg Tablet Sustained Release 12 hr Take 500 mg by mouth 2 times daily. 09/14/2017 furosemide (LASIX) 20 mg tablet Take 20 mg by mouth daily as needed. 03/16/2019 isosorbide mononitrate (IMDUR) 120 mg 24 hr tablet Take 1 tablet by mouth daily. 30 tablet 2 06/15/2012 09/14/2017 rosuvastatin (CRESTOR) 10 mg tablet Take 1 tablet by mouth daily. 30 tablet 3 06/04/2012 09/12/2017 nitroGLYcerin (NITROSTAT) 0.[address] 0.4 mg under the tongue every 5 minutes as needed. 03/16/2019 documented as of this encounter Progress Notes * Venancio Bourgeois RN - 11/25/2016 10:59 AM EDT Discharge orders written, patient understands instructions and follow up visits. Patient discharge to home with family. 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 Unstable angina ??? CAD (coronary artery disease) -Coronary Angio 07/29/2013: 65% (FFR 0.74) mid LAD lesion s/p PCI with 3.5 X 18 mm JACINDA - [facility] 2009 post abnormal nuc stress +IW, EF normal - Recurrent angina, CCS class III - Cardiac catheterization 06/03/2012: 2 vessel CAD (LAD and LCX), +FFR of both lesions s/p PCI to pOM1 (3.0 x 18 mm Xience JACINDA) and mLAD (3.0 x 20 mm Promus Element JACINDA) ??? DM (diabetes mellitus) ??? HTN (hypertension) ??? Smoker ??? Dyslipidemia Resolved Hospital Problems Diagnosis Date Resolved No resolved problems to display. Interval History: -underwent PCI -no chest pain overnight Review of Systems: Review of Systems Constitutional: Positive for activity change, appetite change and unexpected weight change. Negative for diaphoresis. HENT: Negative for congestion. Chronic odynophagia Respiratory: Positive for apnea. Negative for chest tightness and wheezing. Cardiovascular: Negative for palpitations and leg swelling. Gastrointestinal: Negative. GERD - takes a PPI Endocrine: Negative. Genitourinary: Erectile dysfunction. Musculoskeletal: Positive for neck pain. Neurological: Occasional shakiness along this fingers. Telemetry: HR: 57-84, sinus bradycardia, sinus rhythm Meds: Scheduled Meds: ??? aspirin 325 mg Oral Daily ??? buPROPion 150 mg Oral BID ??? clopidogrel 75 mg Oral Daily ??? DULoxetine 60 mg Oral BID ??? gabapentin 600 mg Oral 2 times per day ??? isosorbide mononitrate 120 mg Oral Daily ??? losartan 12.5 mg Oral Daily ??? pantoprazole 40 mg Oral Daily ??? pramipexole 0.5 mg Oral Nightly ??? ranolazine 500 mg Oral BID ??? topiramate 50 mg Oral Nightly ??? gabapentin 900 mg Oral Nightly ??? atorvastatin 80 mg Oral QPM ??? sodium chloride 0.9 % 5 mL Intravenous BID ??? insulin lispro 1-4 Units Subcutaneous TID AC ??? meTOPROLOL tartrate 50 mg Oral 2 times per day ??? sodium chloride 0.9 % 5 mL Intravenous Q12H Continuous Infusions: PRN Meds:alum-mag hydroxide-simeth, cyclobenzaprine, oxyCODONE, sodium chloride 0.9 %, nitroGLYcerin, dextrose 50% OR glucagon (human recombinant), sodium chloride 0.9 %, lidocaine Physical Exam: Vital Signs: Last value Range last 24 hrs Temperature Temp: 36.6 ??C (97.9 ??F) Temp: [36.3 ??C (97.3 ??F)-36.7 ??C (98.1 ??F)] Heart Rate Heart Rate: 67 Heart Rate: [59-82] Blood Pressure BP: 125/72 BP: (101-125)/(59-78) Respiratory Rate Resp: 16 Resp: [10-27] SpO2 SpO2: 98 % SpO2: [93 %-98 %] Patient Vitals for the past 168 hrs: Weight 11/25/16 0641 94.6 kg (208 lb 8.9 oz) 11/24/16 0628 93.9 kg (207 lb 0.2 oz) 11/23/16 0641 94.6 kg (208 lb 8.9 oz) 11/22/16 0543 95.3 kg (210 lb 1.6 oz) 11/22/16 0210 95.4 kg (210 lb 5.1 oz) 11/21/162009 94 kg (207 lb 3.7 oz) Intake/Output Summary (Last 24 hours) at 11/25/16 0842 Last data filed at 11/25/16 0821 Gross per 24 hour Intake 2547 ml Output 2450 ml Net 97 ml Physical Exam Constitutional: He is oriented to person, place, and time. He appears well- developed and well-nourished. HENT: Head: Normocephalic and atraumatic. Eyes: Right eye exhibits no discharge. Left eye exhibits no discharge. Neck: Normal range of motion. Neck supple. No JVD present. No tracheal deviation present. No thyromegaly present. Cardiovascular: Normal rate and regular rhythm. Exam reveals no gallop and no friction rub. No murmur heard. Cath access R radial No bruit. Brisk capillary refill Pulmonary/Chest: No respiratory distress. He has no wheezes. He has no rales. He exhibits no tenderness. Abdominal: Soft. Musculoskeletal: He exhibits no edema. Lymphadenopathy: He has no cervical adenopathy. Neurological: He is alert and oriented to person, place, and time. Skin: Skin is warm and dry. Psychiatric: He has a normal mood and affect. Lab Comments: Recent Labs 11/25/1645111/24/1620 11/23/16 0624 WBC 9.0 8.9 8.0 HGB 14.5 14.7 14.5 HCT 44.2 43.2 43.1 PLATELET 214 203 207 Recent Labs 11/21/162031 INR 1.0 Recent Labs 11/25/162 11/23/16 0624 11/22/16 1006 11/22/16 0358 NA 142 142 -- 142 K 3.9 3.9 3.8 3.3* CL 108* 106 -- 106 CO2 19* 20* -- 21* BUN 10 10 -- 10 CREATININE 0.87 0.98 -- 0.85 Recent Labs 11/21/162031 AST 15 ALT 9 ALKPHOS 43 BILITOT 0.2 BILIDIR <0.1 Recent Labs 11/25/162 11/23/16 0624 11/22/16 0358 CALCIUM 9.5 9.6 8.8 Recent Labs 11/22/16 1711 11/22/16 1006 11/22/16 0358 CK 46 48 50 TROPONINT <0.03 <0.03 <0.03 Pertinent Radiographic/Diagnostic Results: ECG: (11/24/16): sinus rhythm, normal ECG , rate 65. Chest x-ray (11/22/16) Multiple overlying leads. The airways are midline. The cardiomediastinal silhouette is normal in size. The pulmonary vascularity is within normal limits. A stable cardiac stent is noted. ?? Lung parenchyma without nodularity, consolidation, or effusion. Pleural margins are sharp. ?? IMPRESSION: No acute pulmonary disease is identified. Echocardiogram (11/22/16): 1. The left ventricular chamber size is normal. Left ventricular wall thickness is normal. There isnormal global left ventricular systolic function. The quantitative left ventricular ejection fraction by biplane Mcleod's method is 60%. There are left ventricular segmental wall motion abnormalities present, as shown in the diagram below. 2. The right ventricle is normal in size. Right ventricular global systolic function is normal. ?? Study Quality: Technically limited ?? Left Ventricle: The left ventricular chamber size is normal.Left ventricular wall thickness is normal. No ventricular septal defect is visualized.There is normal global left ventricular systolic function. The quantitative left ventricular ejection fraction by biplane Mcleod's method is 60%. There are left ventricular segmental wall motion abnormalities present, as shown in the diagram below. Left ventricular diastolic function is normal. The basal anterolateral, mid anterolateral, and mid inferolateral wall segments are hypokinetic (score 2). The overall wall motion score index is 1.19 ?? Left Atrium: The left atrium is probably normal in size. No atrial septal defect is visualized. ?? Right Ventricle: The right ventricle is normal in size. Right ventricular global systolic function is normal. Pulmonary artery hypertension could not be assessed due to inadequate tricuspid regurgitation jet. ?? Right Atrium: The right atrium is normal in size. ?? Aortic Valve: The aortic valve is not well visualized. There is no evidence of aortic valve stenosis. There is no evidence of aortic regurgitation. ?? Mitral Valve: The mitral valve leaflets appear normal. There is trace mitral regurgitation present. ?? Tricuspid Valve: The tricuspid valve is probably normal. There is trace tricuspid regurgitation present. ?? Pulmonic Valve: The pulmonic valve is not well visualized. ?? Pericardium: There is no pericardial effusion. A pericardial fat pad is visualized. ?? Aorta: The aortic root is normal in size. The ascending aorta was not well visualized. The aortic arch was not well visualized. ?? Pulmonary Artery: The main pulmonary artery is not well visualized. ?? Venous: There is a greater than 50% respiratory change in the inferior vena cava dimension. ?? 11/24/2016 Cardiac cath Hemodynamics: Left Heart Pressures Resting: Syst Diast EDP a v m Ao 99 63 79 LV 103 7 ? Coronary Angiography: Dominance: Right ? Left Main There was mild diffuse disease of the entire vessel segment of the left main artery. ? Left Anterior Descending There was mild diffuse disease of the entire vessel segment of the left anterior descending artery (LAD). The previously placed stent is patent. The proximal segment of the LAD had a diffuse 30% stenosis. ? Left Circumflex There was mild diffuse disease of the entire vessel segment of the left circumflex artery (LCX). ? Right Coronary Artery There was mild diffuse disease of the entire vessel segment of the right coronary artery (RCA). The proximal segment of the RCA had a single discrete 75% stenosis. There also was a 30% ectatic single discrete stenosis of the distal segment of the RCA. ? Indication for Intervention: Coronary intervention was indicated for treatment of high risk unstable angina. Left ventricular Ejection Fraction was estimated at 55 percent. The priority for the procedure was Urgent. The [facility] indication for the procedure was PCI for high risk Non-STEMI or unstable angina. ? Intervention Summary: Right Coronary Artery Proximal 75% Stent insertion was performed on the 75% stenosis in the proximal segment of the RCA. This was a de abby lesion. According to the ACC/AHA classification system, this lesion was a type B1 moderate risk lesion. Primary prevention of restenosis was the indication for stent insertion. This was the culprit lesion. Vessel flow pre intervention was DANIEL 3. ? Stent insertion was accomplished through a 6 Fr. AL 1 guide. The lesion was predilated with a 2.50mm EUPHORA 12 MM . A premounted 3.50 x 12 mm Resolute (JACINDA) was deployed with a maximum inflation pressure of 12 atmospheres. Following stent deployment, the lesion was dilated using a 2.75mm NC EUPHORA 08 MM balloon with a maximum inflation pressure of 20 atmospheres. ? The final outcome was defined as successful. There was no residual stenosis following this intervention. The final DANIEL flow was 3. ? Vascular Access: Vascular Access Management: Mechanical Compression of the right radial artery access site was performed. ? Conclusions: * One vessel coronary artery disease (RCA) * Successful stent insertion of the proximal RCA lesion * Drug eluting stent placed. Assessment: 51 y.o. male with known CAD (65% mid LAD & 70% ostial OM-2 lesions stented in May 2012, an additional 65% mid-LAD lesion stented in Jul 2013, in- stent restenosis addressed with LAD stent angioplasty at [facility] in January 2014, DM2, HTN, dyslipidemia, continued tobacco use, and obesity [place] [facility] [place] of [place] ang[place]. Underwent Cardiac catheterization to day (11/24/16)-CI of RCA Comfortable overnight Smoking cessation consult Plan: 1. Unstable angina LAD and LCx disease defined at prior cardiac catheterizations ([place] [facility] [place] [facility]) Describes crescendo anginal symptoms which have been present with exertion and at rest. Current devoid of chest pain Three sets of cardiac enzymes NOT elevated Echocardiogram (11/23/16): basal anterolateral, mid anterolateral, and mid inferolateral wall segments are hypokinetic (as described above) Clopidogrel 2. DM2 HgbA1c 5.6 Results for ROMEO COELHO ( ) as of 11/25/2016 08:49 Ref. Range 11/23/2016 19:36 11/24/2016 07:43 11/24/2016 11:56 11/24/2016 16:27 11/25/2016 04:52 11/25/2016 07:42 Glucose Fasting Latest Ref Range: 65 - 99 mg/dL 113 (H) POC Glucose Latest Ref Range: 65 - 199 mg/dL 131 131 110 88 123 3. HTN BP 97/55 to 127/61 during the last 24 hours. 4. Dyslipidemia LDL-C: 52 (11/22/16) Continue atorvastatin 5. Continued tobacco use. I have spoken to Shania Staley from Smoking [facility]essation She will see patient pre-discharge 6.Overweight Body mass index is 29.92 kg/(m^2). I have seen the patient and reviewed the resident's above history and I agree with the details as written. The assessment and plan were formulated in discussion with me and I agree with them as documented. AF 60's 117/74 98% RA + 904ml wbc 9.0 hgb 14.5 plat 214 creat 0.87 asa, clop, iso 120, losartan 12.5 metop 50(2), ranolazine 500bid, atorva 40 51 year old male with pmhx dm cad, last cath 2013, presenting with chest pain, both with stress and rest. He is an active smoker, with multiple interventions. Will continue with medical therapy for now. Plan on cath as soon as we can get it. EKG okay. Trops negative. Sent to cath, got stented to prox rca last night with drug eluter. Will ambulate today, if feels okay, discharge. Greater than 30 minutes spent in discharge planning and prep for this patient. * Roque Sanches MD - 11/24/2016 7:48 AM EDT Inpatient Cardiology Progress Note Patient Name: Romeo Coelho Service: [employer] / PA Responsible Attending: Roque Sanches MD Reason for continued hospitalization: Evaluation and management of unstable angina; cardiac cath anticipated today (11/24/16) Active Problems: Active Hospital Problems Diagnosis ??? Unstable angina ??? CAD (coronary artery disease) -Coronary Angio 07/29/2013: 65% (FFR 0.74) mid LAD lesion s/p PCI with 3.5 X 18 mm JACINDA - [facility] 2009 post abnormal nuc stress +IW, EF normal - Recurrent angina, CCS class III - Cardiac catheterization 06/03/2012: 2 vessel CAD (LAD and LCX), +FFR of both lesions s/p PCI to pOM1 (3.0 x 18 mm Xience JACINDA) and mLAD (3.0 x 20 mm Promus Element JACINDA) ??? DM (diabetes mellitus) ??? HTN (hypertension) ??? Smoker ??? Dyslipidemia Resolved Hospital Problems Diagnosis Date Resolved No resolved problems to display. Interval History: No overnight events. No chest pain, dyspnea, palpitations, orthopnea, paroxysmal nocturnal dyspnea, cough, wheezes, or lower extremity edema at present. Anticipate cardiac cath early today AM (11/24/16). Review of Systems: Review of Systems Constitutional: Positive for activity change, appetite change and unexpected weight change. Negative for diaphoresis. HENT: Negative for congestion. Chronic odynophagia Respiratory: Positive for apnea. Negative for chest tightness and wheezing. Cardiovascular: Negative for palpitations and leg swelling. Gastrointestinal: Negative. GERD - takes a PPI Endocrine: Negative. Genitourinary: Erectile dysfunction. Musculoskeletal: Positive for neck pain. Neurological: Occasional shakiness along this fingers. Telemetry: HR: 57-84, sinus bradycardia, sinus rhythm Meds: Scheduled Meds: ??? sodium chloride 0.9 % 5 mL Intravenous Q12H ??? aspirin 325 mg Oral Daily ??? buPROPion 150 mg Oral BID ??? clopidogrel 75 mg Oral Daily ??? DULoxetine 60 mg Oral BID ??? gabapentin 600 mg Oral 2 times per day ??? isosorbide mononitrate 120 mg Oral Daily ??? losartan 12.5 mg Oral Daily ??? pantoprazole 40 mg Oral Daily ??? pramipexole 0.5 mg Oral Nightly ??? ranolazine 500 mg Oral BID ??? topiramate 50 mg Oral Nightly ??? gabapentin 900 mg Oral Nightly ??? atorvastatin 80 mg Oral QPM ??? sodium chloride 0.9 % 5 mL Intravenous BID ??? sodium chloride 0.9 % 5 mL Intravenous Q12H ??? insulin lispro 1-4 Units Subcutaneous TID AC ??? meTOPROLOL tartrate 50 mg Oral 2 times per day ??? sodium chloride 0.9 % 5 mL Intravenous Q12H Continuous Infusions: ??? sodium chloride 0.9% 100 mL/hr (11/24/16 0228) ??? heparin (porcine) 1,500 Units/hr (11/24/16 0002) PRN Meds:sodium chloride 0.9 %, lidocaine, acetaminophen, alum-mag hydroxide- simeth, cyclobenzaprine, oxyCODONE, sodium chloride 0.9 %, nitroGLYcerin, dextrose 50% OR glucagon (human recombinant), sodium chloride 0.9 %, sodium chloride 0.9 %, lidocaine, heparin (porcine) AND heparin (porcine) Physical Exam: Vital Signs: Last value Range last 24 hrs Temperature Temp: 36.4 ??C (97.5 ??F) Temp: [36.4 ??C (97.5 ??F)-37 ??C (98.6 ??F)] Heart Rate Heart Rate: 58 Heart Rate: [58-100] Blood Pressure BP: 100/64 BP: (100-119)/(61-74) Respiratory Rate Resp: 18 Resp: [18] SpO2 SpO2: 96 % SpO2: [94 %-97 %] Physical Exam Constitutional: He is oriented to person, place, and time. He appears well- developed and well-nourished. HENT: Head: Normocephalic and atraumatic. Eyes: Right eye exhibits no discharge. Left eye exhibits no discharge. Neck: Normal range of motion. Neck supple. No JVD present. No tracheal deviation present. No thyromegaly present. Cardiovascular: Normal rate and regular rhythm. Exam reveals no gallop and no friction rub. No murmur heard. Femoral pulses +2, b/l. No femoral bruits, b/l. Pulmonary/Chest: No respiratory distress. He has no wheezes. He has no rales. He exhibits no tenderness. Abdominal: Soft. Musculoskeletal: He exhibits no edema. Lymphadenopathy: He has no cervical adenopathy. Neurological: He is alert and oriented to person, place, and time. Skin: Skin is warm and dry. Psychiatric: He has a normal mood and affect. Lab Comments: Recent Labs 11/24/16 0620 11/23/1662311/22/16 0358 WBC 8.9 8.0 8.6 HGB 14.7 14.5 13.8 HCT 43.2 43.1 41.9 PLATELET 203 207 219 Recent Labs 11/21/162031 INR 1.0 Recent Labs 11/23/16 0624 11/22/16 1006 11/22/16 0358 11/21/162031 NA 142 -- 142 145 K 3.9 3.8 3.3* 3.5 CL 106 -- 106 105 CO2 20* -- 21* 19* BUN 10 -- 10 10 CREATININE 0.98 -- 0.85 0.95 Recent Labs 11/21/162031 AST 15 ALT 9 ALKPHOS 43 BILITOT 0.2 BILIDIR <0.1 Recent Labs 11/23/16 0624 11/22/16 0358 11/21/16 2032 CALCIUM 9.6 8.8 9.2 Recent Labs 11/22/16 1711 11/22/16 1006 11/22/16 0358 CK 46 48 50 TROPONINT <0.03 <0.03 <0.03 Pertinent Radiographic/Diagnostic Results: ECG: (11/24/16): sinus rhythm, normal ECG , rate 65. Chest x-ray (11/22/16) Multiple overlying leads. The airways are midline. The cardiomediastinal silhouette is normal in size. The pulmonary vascularity is within normal limits. A stable cardiac stent is noted. ?? Lung parenchyma without nodularity, consolidation, or effusion. Pleural margins are sharp. ?? IMPRESSION: No acute pulmonary disease is identified. Echocardiogram (11/22/16): 1. The left ventricular chamber size is normal. Left ventricular wall thickness is normal. There isnormal global left ventricular systolic function. The quantitative left ventricular ejection fraction by biplane Mcleod's method is 60%. There are left ventricular segmental wall motion abnormalities present, as shown in the diagram below. 2. The right ventricle is normal in size. Right ventricular global systolic function is normal. ?? Study Quality: Technically limited ?? Left Ventricle: The left ventricular chamber size is normal.Left ventricular wall thickness is normal. No ventricular septal defect is visualized.There is normal global left ventricular systolic function. The quantitative left ventricular ejection fraction by biplane Mcleod's method is 60%. There are left ventricular segmental wall motion abnormalities present, as shown in the diagram below. Left ventricular diastolic function is normal. The basal anterolateral, mid anterolateral, and mid inferolateral wall segments are hypokinetic (score 2). The overall wall motion score index is 1.19 ?? Left Atrium: The left atrium is probably normal in size. No atrial septal defect is visualized. ?? Right Ventricle: The right ventricle is normal in size. Right ventricular global systolic function is normal. Pulmonary artery hypertension could not be assessed due to inadequate tricuspid regurgitation jet. ?? Right Atrium: The right atrium is normal in size. ?? Aortic Valve: The aortic valve is not well visualized. There is no evidence of aortic valve stenosis. There is no evidence of aortic regurgitation. ?? Mitral Valve: The mitral valve leaflets appear normal. There is trace mitral regurgitation present. ?? Tricuspid Valve: The tricuspid valve is probably normal. There is trace tricuspid regurgitation present. ?? Pulmonic Valve: The pulmonic valve is not well visualized. ?? Pericardium: There is no pericardial effusion. A pericardial fat pad is visualized. ?? Aorta: The aortic root is normal in size. The ascending aorta was not well visualized. The aortic arch was not well visualized. ?? Pulmonary Artery: The main pulmonary artery is not well visualized. ?? Venous: There is a greater than 50% respiratory change in the inferior vena cava dimension. Assessment: 51 y.o. male with known CAD (65% mid LAD & 70% ostial OM-2 lesions stented in May 2012, an additional 65% mid-LAD lesion stented in Jul 2013, in- stent restenosis addressed with LAD stent angioplasty at [facility] in January 2014, DM2, HTN, dyslipidemia, continued tobacco use, and obesity [place] [facility] [place] of [place] ang[place]. Cardiac catheterization today ( 7). Plan: 1. Unstable angina LAD and LCx disease defined at prior cardiac catheterizations ([place] [facility] [place] [facility] Describes crescendo anginal symptoms which have been present with exertion and at rest. Current devoid of chest pain Three sets of cardiac enzymes NOT elevated Echocardiogram (11/23/16): basal anterolateral, mid anterolateral, and mid inferolateral wall segments are hypokinetic (as described above) Consented for cardiac catheterization today (11/24/16)- understands the risks and benefits and is willing to proceed. 2. DM2 HgbA1c 5.6 POC glucose 94-131 during the last 24 hours. Continue carbohydrate controlled diet and sliding scale insulin. 3. HTN BP 97/55 to 127/61 during the last 24 hours. 4. Dyslipidemia LDL-C: 52 (11/22/16) Continue atorvastatin 5. Continued tobacco use. Smoking cessation advised; tobacco cessation consult ordered. Nicotine replacement therapy. 6.Overweight Body mass index is 29.7 kg/(m^2). Dr. Sanches and I met with the patient today (11/24/16), examined him, and reviewed the current planof care. Juan Weir PA-C 11/24/2016 I have seen the patient and reviewed the advanced practice provider's above history and I agree with the details as written. The assessment and plan were formulated in discussion with me and I agree with them as documented. AF 56-100, 100/64, 94-100% i/o + 307 wbc 8.9 8.0 hgb 14.7 14.5 plat 203 207 creat 0.98 <--0.98 trop - asa, clop, iso 120, losartan 12.5 metop 50(2), ranolazine 500bid, atorva 40 51 year old male with pmhx dm cad, last cath 2013, presenting with chest pain, both with stress and rest. He is an active smoker, with multiple interventions. Will continue with medical therapy for now. Plan on cath as soon as we can get it. EKG okay. Trops negative. Feeling okay overnight. Plan on cath today. Echo with preserved left ventricular ejection fraction at 60%. No chest pain overnight. EKG remains okay. * Roque Sanches MD - 11/23/2016 7:09 AM EDT Inpatient Cardiology Progress Note Patient Name: Romeo Coelho Service: [employer] WORK[employer] / PA Responsible Attending: Roque Sanches MD Reason for continued hospitalization: Evaluation and management of unstable angina Active Problems: Active Hospital Problems Diagnosis ??? Unstable angina ??? CAD (coronary artery disease) -Coronary Angio 07/29/2013: 65% (FFR 0.74) mid LAD lesion s/p PCI with 3.5 X 18 mm JACINDA - [facility] 2009 post abnormal nuc stress +IW, EF normal - Recurrent angina, CCS class III - Cardiac catheterization 06/03/2012: 2 vessel CAD (LAD and LCX), +FFR of both lesions s/p PCI to pOM1 (3.0 x 18 mm Xience JACINDA) and mLAD (3.0 x 20 mm Promus Element JACINDA) ??? DM (diabetes mellitus) ??? HTN (hypertension) ??? Smoker ??? Dyslipidemia Resolved Hospital Problems Diagnosis Date Resolved No resolved problems to display. Interval History: No overnight events. No chest pain, dyspnea, palpitations, orthopnea, paroxysmal nocturnal dyspnea, cough, wheezes, or lower extremity edema at present. Was consented for cardiac cath upon arrival (11/21/16). Anticipate cardiac cath early tomorrow AM (11/24/16). Review of Systems: Review of Systems Constitutional: Positive for activity change, appetite change and unexpected weight change. Negative for diaphoresis. HENT: Negative for congestion. Chronic odynophagia Respiratory: Positive for apnea. Negative for chest tightness and wheezing. Cardiovascular: Negative for palpitations and leg swelling. Gastrointestinal: Negative. GERD - takes a PPI Endocrine: Negative. Genitourinary: Erectile dysfunction. Musculoskeletal: Positive for neck pain. Neurological: Occasional shakiness along this fingers. Telemetry: HR: 66-86, sinus rhythm Meds: Scheduled Meds: ??? aspirin 325 mg Oral Daily ??? buPROPion 150 mg Oral BID ??? clopidogrel 75 mg Oral Daily ??? DULoxetine 60 mg Oral BID ??? gabapentin 600 mg Oral 2 times per day ??? isosorbide mononitrate 120 mg Oral Daily ??? losartan 12.5 mg Oral Daily ??? pantoprazole 40 mg Oral Daily ??? pramipexole 0.5 mg Oral Nightly ??? ranolazine 500 mg Oral BID ??? topiramate 50 mg Oral Nightly ??? gabapentin 900 mg Oral Nightly ??? atorvastatin 80 mg Oral QPM ??? sodium chloride 0.9 % 5 mL Intravenous BID ??? sodium chloride 0.9 % 5 mL Intravenous Q12H ??? insulin lispro 1-4 Units Subcutaneous TID AC ??? meTOPROLOL tartrate 50 mg Oral 2 times per day ??? sodium chloride 0.9 % 5 mL Intravenous Q12H Continuous Infusions: ??? heparin (porcine) 1,500 Units/hr (11/23/16 0651) PRN Meds:cyclobenzaprine, oxyCODONE, sodium chloride 0.9 %, lidocaine, nitroGLYcerin, dextrose 50% OR glucagon (human recombinant), sodium chloride 0.9 %, sodium chloride 0.9 %, lidocaine, heparin (porcine) AND heparin (porcine) Physical Exam: Vital Signs: Last value Range last 24 hrs Temperature Temp: 36.4 ??C (97.5 ??F) Temp: [36.4 ??C (97.5 ??F)-36.7 ??C (98.1 ??F)] Heart Rate Heart Rate: 76 Heart Rate: [67-78] Blood Pressure BP: 114/75 BP: (104-114)/(59-75) Respiratory Rate Resp: 16 Resp: [16-18] SpO2 SpO2: 97 % SpO2: [94 %-98 %] Physical Exam Constitutional: He is oriented to person, place, and time. He appears well- developed and well-nourished. HENT: Head: Normocephalic and atraumatic. Eyes: Right eye exhibits no discharge. Left eye exhibits no discharge. Neck: Normal range of motion. Neck supple. No JVD present. No tracheal deviation present. No thyromegaly present. Cardiovascular: Normal rate and regular rhythm. Exam reveals no gallop and no friction rub. No murmur heard. Femoral pulses +2, b/l. No femoral bruits, b/l. Pulmonary/Chest: No respiratory distress. He has no wheezes. He has no rales. He exhibits no tenderness. Abdominal: Soft. Musculoskeletal: He exhibits no edema. Lymphadenopathy: He has no cervical adenopathy. Neurological: He is alert and oriented to person, place, and time. Skin: Skin is warm and dry. Psychiatric: He has a normal mood and affect. Lab Comments: Recent Labs 11/23/1662311/22/1635711/21/162031 WBC 8.0 8.6 7.9 HGB 14.5 13.8 13.9 HCT 43.1 41.9 40.6 PLATELET 207 219 179 Recent Labs 11/21/162031 INR 1.0 Recent Labs 11/23/1662311/22/16 1006 11/22/1635711/21/162031 NA 142 -- 142 145 K 3.9 3.8 3.3* 3.5 CL 106 -- 106 105 CO2 20* -- 21* 19* BUN 10 -- 10 10 CREATININE 0.98 -- 0.85 0.95 Recent Labs 11/21/162031 AST 15 ALT 9 ALKPHOS 43 BILITOT 0.2 BILIDIR <0.1 Recent Labs 11/23/1662311/22/1635711/21/162031 CALCIUM 9.6 8.8 9.2 Recent Labs 11/22/16 1711 11/22/16 1006 11/22/16 0358 CK 46 48 50 TROPONINT <0.03 <0.03 <0.03 Pertinent Radiographic/Diagnostic Results: ECG: (11/23/16): sinus rhythm with evidence of a possible prior IWMI (Q in III), rate 72. Chest x-ray (11/22/16) Multiple overlying leads. The airways are midline. The cardiomediastinal silhouette is normal in size. The pulmonary vascularity is within normal limits. A stable cardiac stent is noted. ?? Lung parenchyma without nodularity, consolidation, or effusion. Pleural margins are sharp. ?? IMPRESSION: No acute pulmonary disease is identified. Echocardiogram (11/22/16): 1. The left ventricular chamber size is normal. Left ventricular wall thickness is normal. There isnormal global left ventricular systolic function. The quantitative left ventricular ejection fraction by biplane Mcleod's method is 60%. There are left ventricular segmental wall motion abnormalities present, as shown in the diagram below. 2. The right ventricle is normal in size. Right ventricular global systolic function is normal. ?? Study Quality: Technically limited ?? Left Ventricle: The left ventricular chamber size is normal.Left ventricular wall thickness is normal. No ventricular septal defect is visualized.There is normal global left ventricular systolic function. The quantitative left ventricular ejection fraction by biplane Mcleod's method is 60%. There are left ventricular segmental wall motion abnormalities present, as shown in the diagram below. Left ventricular diastolic function is normal. The basal anterolateral, mid anterolateral, and mid inferolateral wall segments are hypokinetic (score 2). The overall wall motion score index is 1.19 ?? Left Atrium: The left atrium is probably normal in size. No atrial septal defect is visualized. ?? Right Ventricle: The right ventricle is normal in size. Right ventricular global systolic function is normal. Pulmonary artery hypertension could not be assessed due to inadequate tricuspid regurgitation jet. ?? Right Atrium: The right atrium is normal in size. ?? Aortic Valve: The aortic valve is not well visualized. There is no evidence of aortic valve stenosis. There is no evidence of aortic regurgitation. ?? Mitral Valve: The mitral valve leaflets appear normal. There is trace mitral regurgitation present. ?? Tricuspid Valve: The tricuspid valve is probably normal. There is trace tricuspid regurgitation present. ?? Pulmonic Valve: The pulmonic valve is not well visualized. ?? Pericardium: There is no pericardial effusion. A pericardial fat pad is visualized. ?? Aorta: The aortic root is normal in size. The ascending aorta was not well visualized. The aortic arch was not well visualized. ?? Pulmonary Artery: The main pulmonary artery is not well visualized. ?? Venous: There is a greater than 50% respiratory change in the inferior vena cava dimension. Assessment: 51 y.o. male with known CAD (65% mid LAD & 70% ostial OM-2 lesions stented in May 2012, an additional 65% mid-LAD lesion stented in Jul 2013, in- stent restenosis addressed with LAD stent angioplasty at [facility] in January 2014, DM2, HTN, dyslipidemia, continued tobacco use, and obesity [place] [facility] [place] of [place] angina. Cardiac catheterization anticipated tomorrow AM (11/24/16). Plan: 1. Unstable angina LAD and LCx disease defined at prior cardiac catheterizations ([place] [facility] [place] [facility]) Describes crescendo anginal symptoms which have been present with exertion and at rest. Current devoid of chest pain Three sets of cardiac enzymes NOT elevated Echocardiogram (11/23/16): basal anterolateral, mid anterolateral, and mid inferolateral wall segments are hypokinetic (as described above) Consented for cardiac catheterization - understands the risks and benefits and is willing to proceed. Cath anticipated tomorrow AM - Thursday, November 24, 2016. 2. DM2 HgbA1c 5.6 POC glucose 94-135 during the last 24 hours. Continue carbohydrate controlled diet and sliding scale insulin. 3. HTN BP 104/63 to 114/75 during the last 24 hours. 4. Dyslipidemia LDL-C: 52 (11/22/16) Continue atorvastatin 5. Continued tobacco use. Smoking cessation advised; tobacco cessation consult ordered. Nicotine replacement therapy. 6.Overweight Body mass index is 29.92 kg/(m^2). Dr. Sanches and I met with the patient today (11/23/16), examined him, and reviewed the current planof care. Juan Weir PA-C 11/23/2016 AF 104/63 70's RA 97% -2.3L wbc 8.0 hgb 14.5 plat 207 creat 0.98 trop - asa, clop, iso 120, losartan 12.5 metop, ranolazine 500bid, atorva 40 51 year old male with pmhx dm cad, last cath 2013, presenting with chest pain, both with stress and rest. He is an active smoker, with multiple interventions. Will continue with medical therapy for now. Plan on cath as soon as we can get it. EKG okay. Trops negative. Feeling okay overnight. Plan on cath tomorrow. Echo with preserved left ventricular ejection fraction. Ejection fraction 60%. * Alana Patterson RN - 11/23/2016 4:13 AM EDT OUTCOME EVALUATION NOTE: OUTCOME SUMMARY: SR on tele. VSS. A&O. Denies CP/SOB. Heparin gtt maintained per protocol. Pt slept between care. 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 Unstable angina ??? CAD (coronary artery disease) -Coronary Angio 07/29/2013: 65% (FFR 0.74) mid LAD lesion s/p PCI with 3.5 X 18 mm JACINDA - [facility] 2009 post abnormal nuc stress +IW, EF normal - Recurrent angina, CCS class III - Cardiac catheterization 06/03/2012: 2 vessel CAD (LAD and LCX), +FFR of both lesions s/p PCI to pOM1 (3.0 x 18 mm Xience JACINDA) and mLAD (3.0 x 20 mm Promus Element JACINDA) ??? DM (diabetes mellitus) ??? HTN (hypertension) ??? Smoker ??? Dyslipidemia Resolved Hospital Problems Diagnosis Date Resolved No resolved problems to display. Interval History: Admitted overnight with unstable angina. No chest pain, dyspnea, palpitations, orthopnea, paroxysmal nocturnal dyspnea, cough, wheezes, or lower extremity edema at present. Consented for cardiac cath upon arrival. Review of Systems: Review of Systems Constitutional: Positive for activity change, appetite change and unexpected weight change. Negative for diaphoresis. HENT: Negative for congestion. Chronic odynophagia Respiratory: Positive for apnea. Negative for chest tightness and wheezing. Cardiovascular: Positive for leg swelling. Negative for palpitations. Gastrointestinal: Negative. GERD - takes a PPI Endocrine: Negative. Genitourinary: Describes incomplete bladder emptying. Erectile dysfunction. Musculoskeletal: Positive for neck pain. Neurological: Occasional shakiness along this fingers. Telemetry: HR: 69-92, sinus rhythm Meds: Scheduled Meds: ??? aspirin 325 mg Oral Daily ??? buPROPion 150 mg Oral BID ??? clopidogrel 75 mg Oral Daily ??? DULoxetine 60 mg Oral BID ??? gabapentin 600 mg Oral 2 times per day ??? isosorbide mononitrate 120 mg Oral Daily ??? losartan 12.5 mg Oral Daily ??? pantoprazole 40 mg Oral Daily ??? pramipexole 0.5 mg Oral Nightly ??? ranolazine 500 mg Oral BID ??? topiramate 50 mg Oral Nightly ??? gabapentin 900 mg Oral Nightly ??? atorvastatin 80 mg Oral QPM ??? meTOPROLOL tartrate 25 mg Oral Q6H SONIA ??? sodium chloride 0.9 % 5 mL Intravenous BID ??? sodium chloride 0.9 % 5 mL Intravenous Q12H ??? insulin lispro 1-4 Units Subcutaneous TID AC ??? sodium chloride 0.9 % 5 mL Intravenous Q12H Continuous Infusions: ??? heparin (porcine) 1,400 Units/hr (11/22/16 0500) PRN Meds:cyclobenzaprine, oxyCODONE, sodium chloride 0.9 %, lidocaine, nitroGLYcerin, dextrose 50% OR glucagon (human recombinant), sodium chloride 0.9 %, sodium chloride 0.9 %, lidocaine, heparin (porcine) AND heparin (porcine) Physical Exam: Vital Signs: Last value Range last 24 hrs Temperature Temp: 36.7 ??C (98.1 ??F) Temp: [36.5 ??C (97.7 ??F)-36.7 ??C (98.1 ??F)] Heart Rate Heart Rate: 71 Heart Rate: [70-74] Blood Pressure BP: 113/70 BP: (105-113)/(62-70) Respiratory Rate Resp: 16 Resp: [16-18] SpO2 SpO2: 95 % SpO2: [95 %-97 %] Physical Exam Constitutional: He is oriented to person, place, and time. He appears well- developed and well-nourished. HENT: Head: Normocephalic and atraumatic. Eyes: Right eye exhibits no discharge. Left eye exhibits no discharge. Neck: Normal range of motion. Neck supple. No JVD present. No tracheal deviation present. No thyromegaly present. Cardiovascular: Normal rate and regular rhythm. Exam reveals no gallop and no friction rub. No murmur heard. Femoral pulses +2, b/l. No femoral bruits, b/l. Pulmonary/Chest: No respiratory distress. He has no wheezes. He has no rales. He exhibits no tenderness. Abdominal: Soft. Musculoskeletal: He exhibits no edema. Lymphadenopathy: He has no cervical adenopathy. Neurological: He is alert and oriented to person, place, and time. Skin: Skin is warm and dry. Psychiatric: He has a normal mood and affect. Lab Comments: Recent Labs 11/22/1635711/21/162031 WBC 8.6 7.9 HGB 13.8 13.9 HCT 41.9 40.6 PLATELET 219 179 Recent Labs 11/21/162031 INR 1.0 Recent Labs 11/22/1635711/21/162031 NA 142 145 K 3.3* 3.5 CL 106 105 CO2 21* 19* BUN 10 10 CREATININE 0.85 0.95 Recent Labs 11/21/162031 AST 15 ALT 9 ALKPHOS 43 BILITOT 0.2 BILIDIR <0.1 Recent Labs 11/22/1635711/21/162031 CALCIUM 8.8 9.2 Recent Labs 11/22/16 0358 11/21/162031 CK 50 64 TROPONINT <0.03 <0.03 Pertinent Radiographic/Diagnostic Results: ECG: (11/22/16): sinus rhythm with evidence of a possible prior IWMI (Q in III), rate 72. Chest x-ray (11/22/16) Multiple overlying leads. The airways are midline. The cardiomediastinal silhouette is normal in size. The pulmonary vascularity is within normal limits. A stable cardiac stent is noted. ?? Lung parenchyma without nodularity, consolidation, or effusion. Pleural margins are sharp. ?? IMPRESSION: No acute pulmonary disease is identified. Echocardiogram (11/22/16): currently pending Assessment: 51 y.o. male with known CAD (65% mid LAD & 70% ostial OM-2 lesions stented in May 2012, an additional 65% mid-LAD lesion stented in Jul 2013, in- stent restenosis addressed with LAD stent angioplasty at [facility] in January 2014, DM2, HTN, dyslipidemia, continued tobacco use, and obesity [place] [facility] [place] of [place] angina. Cardiac catheterization anticipated soon. Plan: 1. Unstable angina LAD and LCx disease defined at prior cardiac catheterizations ([place] [facility] [place] [facility] Describes crescendo anginal symptoms which have been present with exertion and at rest. Current devoid of chest pain First two sets of cardiac enzymes NOT elevated; third set pending. Echocardiogram - currently in progress Consented for cardiac catheterization - understands the risks and benefits and is willing to proceed. 2. DM2 HgbA1c 5.6 POC glucose 80-135 since admission Continue carbohydrate controlled diet and sliding scale insulin. 3. HTN BP 105/66 to 113/70 since admission 4. Dyslipidemia LDL-C: 52 (11/22/16) Continue atorvastatin 5. Continued tobacco use. Smoking cessation advised Will offer nicotine replacement therapy. 6.Obesity Body mass index is 30.15 kg/(m^2). Dr. Sanches and I met with the patient today (11/22/16), examined him, and reviewed the current planof care. Juan Weir PA-C 11/22/2016 AF 36.5 70 107/62 RA 97% -500 wbc 8.6 hgb 13.8 plat 219 creat 0.5 asa, clop, iso 120, losartan 12.5 metop, ranolazine 500bid, atorva 40 51 year old male with pmhx dm cad, last cath 2013, presenting with chest pain, both with stress and rest. He is an active smoker, with multiple interventions. Will continue with medical therapy for now. Plan on cath as soon as we can get it. EKG okay. Trops negative. Feeling okay overnight. Patient seen and evaluated with JAVID, agree with above. documented in this encounter H&P Notes * Drew Pepe MD - 11/21/2016 9:57 PM EDT Cardiology Admission H&P Patient Name: Romeo Coelho Date of : 1965 Age: 51 y.o. Hospital Admit Date: 11/21/2016 Inpatient Attending: Roque Sanches MD PCP: Coni Lim MD Presenting Diagnosis/Chief Complaint: chest pain Active Problem List: Active Hospital Problems Diagnosis ??? Unstable angina Resolved Hospital Problems Diagnosis Date Resolved No resolved problems to display. History of Present Illness: HPI Mr. 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 Exertional retrosternal chest pressure / pain since 2 wks, radiating to back, jaw and left arm. Subsides with rest or with NTG slg. Associated with sob, diaphoresis,palpitations, nausea and couple episodes of vomiting.Chest pain gradually worsened over last few days, yesterday had severe rest pain,8/10, lasting for 2-3 hrs, subsided s/p 2 NTG SL in ED. Symptoms reminiscent of his prior NV / Unstable angina. Compliant with meds . ? Syncope few days ago, with chest pain. Was apparently witnessed by his daughter, says blacked out for few seconds and fell ( landed on his buttocks) ,no seizure like, no incontinence. + ocassional dry cough x 2 wks, no fever / chills OSH course : ECG : nsr 70/m, normal axis, prominent Rs in v2-v3, Q and TWI in III. No new changes. BP - 128/82, hr 80, 100% ra, afebril Troponin < 0.01 OSH meds : NTG Sl , and paste IV heparin ( on chronic Plavix And ASA 324mg /d ) Prior Cardiac W/u : Cath, 05/2012 : JACINDA to mLAD and Ostial OM2 Cath, 07/2013 : JACINDA to mLAD ( Enrolled in ABSORB trial ) . Prior stents patent ( mLAD and OM3) Echo, 2012 : 1. Technically difficult study.Definity contrast (one 1.5 ml vial)was used to enhance endocardial definition. Excess contrast was discarded.Focused study to evaluate for new wall motion abnormalities. 2. The left ventricular chamber size is normal.Left ventricular wall thickness is normal.There are no left ventricular segmental wall motion abnormalities (parasternal imaging with contrast had best endocardial definition).There is normal global left ventricular systolic function. Ejection fraction is estimated to be 65%. Past Medical History: Past Medical History: Diagnosis Date ??? CAD (coronary artery disease), non-obstructive 05/31/2012 ??? DM (diabetes mellitus) 05/31/2012 ??? Dyslipidemia 05/31/2012 ??? GERD (gastroesophageal reflux disease) 05/31/2012 ??? HTN (hypertension) 05/31/2012 ??? Hx-TIA (transient ischemic attack) 06/03/2012 ??? Smoker 05/31/2012 Surgical History/Problems: Past Surgical History: Procedure Laterality Date ??? CHOLECYSTECTOMY Significant Family History: Family History Problem Relation Age of Onset ??? Myocardial Infarction Father 46 [place], CABG ??? Diabetes Mother ??? Hypertension Mother [...] past month ??? Drug use: Yes Comment: Marijuana 1 week ago ??? Sexual activity: Yes Partners: Female Other Topics Concern ??? Not on file Social History Narrative Lives with , foster son (age 18 months), daughter 11 in [place], [place]. Takes care of his mother who has dementia and he takes her to dialysis. is disabled. Has grown daughter who is 29 years old. 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 REVIEW OF SYSTEMS: General ROS: No fatigue [...] No dysuria, trouble voiding, or hematuria MSK: + chronic back pain, + fibromyalgia; h/o spontaneous lump, bruise on left thigh x 2 days, no fall / strenuos activity. Neurological: No TIA or stroke symptoms Medications: Prescriptions Prior to Admission Medication Sig Dispense Refill Last Dose ??? dexlansoprazole (DEXILANT) 30 mg CpDM Take 1 capsule by mouth daily. 90 capsule 3 ??? nitroGLYcerin (NITROSTAT) 0.[address] 1 tablet under the tongue daily as needed for Chest pain. 90 tablet 4 ??? metFORMIN (GLUCOPHAGE) 850 mg tablet Take 850 mg by mouth 2 times daily (with meals). 07/26/2013 at Unknown ??? gabapentin (NEURONTIN) 300 mg capsule Take 300 mg by mouth 3 times daily. 07/29/2013 at Unknown ??? furosemide (LASIX) 20 mg tablet Take 20 mg by mouth daily as needed. More than a month at Unknown ??? levofloxacin (LEVAQUIN) 250 mg tablet Take 500 mg by mouth daily. 07/29/2013 at Unknown ??? clopidogrel (PLAVIX) 75 mg tablet Take 1 tablet by mouth daily. 30 tablet 2 07/29/2013 at 0715 ??? isosorbide mononitrate (IMDUR) 120 mg 24 hr tablet Take 1 tablet by mouth daily. 30 tablet 2 07/29/2013 at Unknown ??? metoprolol tartrate (LOPRESSOR) 50 mg tablet Take 1 tablet by mouth 2 times daily. 60 tablet 2 07/29/2013 at 0730 ??? aspirin 81 mg EC tablet Take 1 tablet by mouth daily. 30 tablet 07/29/2013 at Unknown ??? rosuvastatin (CRESTOR) 10 mg tablet Take 1 tablet by mouth daily. 30 tablet 3 07/29/2013 at Unknown ??? nitroGLYcerin (NITROSTAT) 0.[address] 0.4 mg under the tongue every 5 minutes as needed. Past Week at Unknown ??? DILTiazem (DILACOR XR) 240 mg 24 hr capsule Take 240 mg by mouth daily. 07/29/2013 at Unknown ??? magnesium oxide (MAG-OX) 400 mg tablet Take 400 mg by mouth 2 times daily. More than a month atUnknown ??? DULoxetine (CYMBALTA) 60 mg capsule Take 60 mg by mouth 2 times daily. 07/29/2013 at Unknown ??? acetaminophen (TYLENOL ARTHRITIS) 650 mg CR tablet Take 650 mg by mouth every 8 hours as needed. Do not exceed 6 tabs in 24 hours Unknown at Unknown ??? cyclobenzaprine (FLEXERIL) 10 mg tablet Take 10 mg by mouth daily as needed. Past Week at Unknown ??? quinine 260 mg tablet Take 260 mg by mouth daily as needed. Unknown at Unknown Allergies: Allergies Allergen Reactions ??? Thallium-201 Severe cardiac event PHYSICAL EXAM: Last set of vital signs: BP 106/64 (BP Location (NBP): Left arm) Pulse 71 Temp 36.7 ??C (98.1 ??F) (Oral) Resp 18 Wt 94 kg (207 lb 3.7 oz) SpO2 95% BMI 29.73 kg/m2 Gen/Constitutional: Alert, appears comfortable. HEENT: ZULEIMA, EOMI, No conjunctival pallor or scleral icterus Cardiac: RRR, normal S1 S2 No murmurs ,no JVD Vascular : no carotid bruit, normal Edvin's test b/l . + 2 femoral, no bruit. DP b/l +2 Pulm/Chest: No crackles or wheezing Abd/GI: No tenderness, not distended, soft, BS present, no organomegaly Musculoskeletal: no edema . no calf tenderness ; 3-4 cm soft lump left thigh, + bruise, no tenderness Neuro/WILDLIFE CONSERVATIONIST: AAO x 3, No evident deficits Skin/Integumentary: No rash LABS: Recent Results (from the past 24 hour(s)) POCT Glucose Result Value Ref Range POC Glucose 80 65 - 199 mg/dL pro-Brain Natriuretic Peptide Result Value Ref Range ProBNP 65 <=125 pg/mL Basic Metabolic Panel (non-fasting) Result Value Ref Range Glucose Lvl 84 65 - 199 mg/dL BUN 10 10 - 20 mg/dL Creatinine 0.95 0.80 - 1.50 mg/dL Sodium 145 135 - 145 mmol/L Potassium 3.5 3.5 - 5.0 mmol/L Chloride 105 98 - 107 mmol/L CO2 19 (L) 22 - 31 mmol/L Anion Gap 21 (H) 5 - 15 mmol/L Calcium 9.2 8.5 - 10.5 mg/dL Estimated GFR >60 >=60 Cardiac Enzymes Result Value Ref Range Troponin-T <0.03 <=0.03 ng/mL CK, Total 64 0 - 200 unit/L Hepatic Function Panel Result Value Ref Range Total Protein 6.8 6.1 - 8.0 gm/dL Albumin 4.0 3.2 - 5.2 gm/dL AST 15 0 - 39 unit/L ALT 9 0 - 55 unit/L Alk Phos 43 40 - 120 unit/L Total Bilirubin 0.2 0.2 - 1.3 mg/dL Bili, Direct <0.1 0.0 - 0.3 mg/dL Prothrombin Time Result Value Ref Range PT 14.0 12.0 - 15.0 sec INR 1.0 0.9 - 1.1 APTT Result Value Ref Range PTT 32 25 - 35 sec Hemogram Result Value Ref Range WBC 7.9 4.0 - 9.5 x10(3)/mcL RBC 4.64 4.58 - 5.54 x10(6)/mcL Hemoglobin 13.9 13.7 - 16.5 gm/dL Hematocrit 40.6 40.5 - 48.5 % MCV 87.5 82.9 - 93.1 fL MCH 30.0 27.5 - 32.1 pg MCHC 34.2 32.0 - 35.7 gm/dL Platelets 179 145 - 357 x10(3)/mcL RDWSD 44.3 36.0 - 45.0 fL RDWCV 13.8 11.4 - 13.8 % MPV 10.8 7.6 - 12.9 fL nRBC % Auto 0.0 % nRBC Abs Auto 0.000 0.000 - 0.000 x10(3)/mcL Differential, Automated Result Value Ref Range Neutrophils % 38.3 % Neutr Abs (ANC) 3.02 1.70 - 6.10 x10(3)/mcL Lymphocytes % 48.7 % Lymphocytes Abs 3.8 (H) 0.9 - 3.2 x10(3)/mcL Monocytes % 7.3 % Monocyte Abs 0.6 0.3 - 0.9 x10(3)/mcL Eosinophils % 4.4 % Eosinophils Abs 0.4 0.0 - 0.4 x10(3)/mcL Basophils % 0.9 % Basophils Abs 0.1 0.0 - 0.1 x10(3)/mcL Immature Gran % 0.40 % Lisseth Gran Abs 0.03 0.00 - 0.04 x10(3)/mcL A&P: 51 yr M PMH of CAD - multiple PCIs in past, latest cath in January 2014 ( at [facility] ) JACINDA x2 to LAD, prior instent restenosis, pEF 62 %, DM2,HTN, HLD, active smoker, 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 Similar in character to prior NV / UA; Nitrate responsive. ECG : nsr 70/m, normal axis, prominent Rs in v2-v3, Q and TWI in III. No new changes. BP - 128/82, hr 80 Troponin < 0.01 #) Unstable Angina #) DM #) active smoker #) HTN - admit to Cardiology - trend enzymes - Continue IV heparin, Plavix 75mg/d ( home med ), ASA ( on 324mg/d ), metoprolol ( switch from 50mg XL twice daily to tartrate 25mg q6hr ), switch crestor 10mg to Lipitor 80mg/n. - TTE - Cath in AM vs Thursday , consented ( explained benefits and risks, he understands ) . DANIEL : 4 JANA : 84 - euvolemic. Hold lasix d/t cath - Hold metformin, start sliding scale insulin - quit smoking counseling provided, motivated ( he has cut down from 3 packs/ d to less than half pack per day now ). Declines Nicotine patch Provider: @Drew Pepe MD@ Provider #: [id number] 11/21/2016 documented in this encounter Miscellaneous Notes * Consult Note - Nika Montalvo RN - 11/25/2016 10:21 AM EDT Cardiac Rehabilitation Inpatient Evaluation Primary Cardiac Diagnosis: USA, PCI to RCA Cardiac Risk Factors: Smoking: yes Overweight: slight Hyperlipidemia: yes Sedentary: yes HTN: yes Family history: yes DM: yes Stress: yes Patient Education: Reviewed cardiac cath findings, implications of coronary artery disease, managing angina and risk factor modification. Mr. Coelho has history of CAD w/prior stents in 2012. He participated in cardiac rehab at that time. He quit smoking for 6 months but resumed when his came back inside the house to smoke. He has met w/the smoking cessation counselor this admission. He has the packet. He is disabled due to fibromyalgia and arthritis. Given parameters for home exercise, to progress as he tolerates. Reviewed managing angina /use of sl nitroglycerin. Phase II Referral: Participation in the outpatient cardiac rehabilitation program at [facility] was discussed. Patient agrees to a referral to this program. The referral will be sent at discharge and the patient should be contacted by the Program within 1- 2 weeks from discharge. Activity Summary: By discharge, patient will be able to perform self care, walk 5-7 minutes and go up and down stairs without signs or symptoms of ischemia. Activity Baseline Response Symptoms/Comments Walk/stairs HR 81 102 Willow well, no sx ~6 min BP 120/78 127/72 O2 Sat 98% 97% ECG SR SR * Consult Note - Darcy Staley APRN - 11/25/2016 9:03 AM EDT 11/25/2016 INPATIENT TOBACCO TREATMENT CONSULT NOTE Name: Romeo Coelho Date of : 1965 Patient Active Problem List Diagnosis Date Noted ??? CAD (coronary artery disease) 05/31/2012 Priority: High ??? Unstable angina 11/21/2016 ??? Chest pain 06/14/2012 ??? Hx-TIA (transient ischemic attack) 06/03/2012 ??? Dyslipidemia 05/31/2012 ??? GERD (gastroesophageal reflux disease) 05/31/2012 ??? HTN (hypertension) 05/31/2012 ??? DM (diabetes mellitus) 05/31/2012 ??? Smoker 05/31/2012 Past Medical History: Diagnosis Date ??? CAD (coronary artery disease), non-obstructive 05/31/2012 ??? DM (diabetes mellitus) 05/31/2012 ??? Dyslipidemia 05/31/2012 ??? GERD (gastroesophageal reflux disease) 05/31/2012 ??? HTN (hypertension) 05/31/2012 ??? Hx-TIA (transient ischemic attack) 06/03/2012 ??? Smoker 05/31/2012 Past Surgical History: Procedure Laterality Date ??? CHOLECYSTECTOMY ??? HERNIA REPAIR ??? KNEE SURGERY Right ??? TONSILLECTOMY AND ADENOIDECTOMY Current Facility-Administered Medications Medication Dose Route Frequency Provider Last Rate Last Dose ??? alum-mag hydroxide-simeth (MAALOX) 200-200-20 mg/5 mL oral suspension 10 mL 10 mL Oral TID PRN Juan Weir PA 10 mL at 11/23/16 1618 ??? aspirin tablet 325 mg 325 mg Oral Daily Drew Pepe MD 325 mg at 11/25/16 0902 ??? buPROPion (WELLBUTRIN SR or ZYBAN) SR tablet 150 mg 150 mg Oral BID Drew Pepe MD 150 mg at 11/25/16 0900 ??? clopidogrel (PLAVIX) tablet 75 mg 75 mg Oral Daily Drew Pepe MD 75 mg at 11/25/16 0858 ??? cyclobenzaprine (FLEXERIL) tablet 10 mg 10 mg Oral TID PRN Drew Pepe MD ??? DULoxetine (CYMBALTA) capsule 60 mg 60 mg Oral BID Drew Pepe MD 60 mg at 11/25/16 0858 ??? gabapentin (NEURONTIN) capsule 600 mg 600 mg Oral 2 times per day Drew Pepe MD 600 mg at 11/25/16 0551 ??? isosorbide mononitrate (IMDUR) CR tablet 120 mg 120 mg Oral Daily Drew Pepe MD 120 mg at 11/25/16 0858 ??? losartan (COZAAR) tablet 12.5 mg 12.5 mg Oral Daily Drew Pepe MD 12.5 mg at 11/25/16 0857 ??? oxyCODONE (ROXICODONE) immediate release tablet 10 mg 10 mg Oral 4 Times Daily PRN Drew Pepe MD 10 mg at 11/23/16 1617 ??? pantoprazole (PROTONIX) tablet 40 mg 40 mg Oral Daily Drew Pepe MD 40 mg at 11/25/16 0901 ??? pramipexole (MIRAPEX) tablet 0.5 mg 0.5 mg Oral Nightly Drew Pepe MD 0.5 mg at 11/24/16 2108 ??? ranolazine (RANEXA) ext-release tablet 500 mg 500 mg Oral BID Drew Pepe MD 500 mg at 11/25/16 0900 ??? topiramate (TOPAMAX) tablet 50 mg 50 mg Oral Nightly Drew Pepe MD 50 mg at 11/24/16 2108 ??? gabapentin (NEURONTIN) capsule 900 mg 900 mg Oral Nightly Drew Pepe MD 900 mg at 11/24/16 2143 ??? atorvastatin (LIPITOR) tablet 80 mg 80 mg Oral QPM Drew Pepe MD 80 mg at 11/24/16 1658 ??? sodium chloride 0.9 % flush 5 mL 5 mL Intravenous BID Drew Pepe MD 5 mL at 11/24/16 2112 ??? sodium chloride 0.9 % flush 5-20 mL 5-20 mL Intravenous Q1 Min PRN Drew Pepe MD ??? nitroGLYcerin (NITROSTAT) SL tablet 0.4 mg 0.4 mg Sublingual Q5 Min PRN Drew Pepe MD ??? dextrose 50% injection 25-50 mL 12.5-25 g Intravenous Q1H PRN Drew Pepe MD Or ??? glucagon (human recombinant) injection SolR 1 mg 1 mg Intramuscular Q1H PRN Drew Pepe MD ??? insulin lispro (humaLOG) VIAL injection 1-4 Units 1-4 Units Subcutaneous TID AC Drew Pepe MD ??? meTOPROLOL tartrate (LOPRESSOR) tablet 50 mg 50 mg Oral 2 times per day Juan Weir PA 50 mgat 11/25/16 0900 ??? sodium chloride 0.9 % flush 5 mL 5 mL Intravenous Q12H Drew Pepe MD 5 mL at 11/24/16 0909 ??? sodium chloride 0.9 % flush 5-20 mL 5-20 mL Intravenous Q1 Min PRN Drew Pepe MD ??? lidocaine (XYLOCAINE) 10 mg/mL (1 %) injection 3 mg 0.3 mL Subcutaneous Once PRN Drew Pepe MD Allergies Allergen Reactions ??? Thallium-201 Severe cardiac event ??? Lisinopril Other (See Comments) cough ??? Paper Tape [Adhesive Tape] Rash Social History Substance Use Topics ??? Smoking status: Current Every Day Smoker Packs/day: 0.50 Types: Cigarettes ??? Smokeless tobacco: Former User Comment: declines smoking cesation info. Starting Chantix next week. ??? Alcohol use No Comment: in past month Family History Problem Relation Age of Onset ??? Myocardial Infarction Father 46 [place], CABG ??? Diabetes Mother ??? Hypertension Mother ??? Hyperlipidemia Mother ??? Diabetes Brother ??? Diabetes Brother ??? Hypertension Brother ??? Hypertension Brother ??? Hyperlipidemia Brother ??? Hyperlipidemia Brother Reason for consult: Romeo Coelho was referred by Diane Rose APRN for smoking cessation counseling. He was admitted on 11/21/16 with unstable angina. The following information has been reviewed with patient: Is the patient having cravings or withdrawal symptoms in the hospital: [ ]Yes [ ]No Type of tobacco used: [X ] Cigarettes [ ] Smokeless tobacco [ ] e-cigarette [ ] other Current amount: 2-3 cgarettes/day down from 3 ppd three years ago Cost per pack: $Rolls his own, likely $1 Age initiated: 12 Years smoked: 41 Most/least smoked: 4 ppd/3 cigs/day Previous quit attempts and methods: Patient and are trying to quit. Has been decreasing the number of cigarettes. Tried patches, didn't stick. Tried the gum, didn't work well, didn't like the flavor. Took it any time, did not pay attention to when, after meals. Tried Chantix, didn't work but when he added lozenges he was able to quit. Took Chantix for 2 months. Quit for 6 months. Started again. But only worked with using the lozenges. How soon after awakening is your first cigarette smoked? [ X] Less than 30 minutes [ ] More than 30minutes Caffeine intake: 7-8 cups coffee per day, Diet Pepsi at least 2 liters/day ETOH: none Are there other smokers in the home: smokes also, but is trying to quit Are there children in the home: 15 year old, non smoker Concerns about quitting: no Concerns about weight gain: no Triggers for smoking: Stress, being around other smokers Ready to set a quit date: yes Date: 11/21/16 Importance/Confidence Scale (How important is it for him to quit/How confident patient is that he can quit on scale of 0 (Not at all important) - 10 (Most important) 10/8.5-9 What would help increase confidence: Something to help with the cravings. Assessment: I reviewed the physiology of addiction as well as apparent health risks specific for him. I discussed the options for treatment including NRT, Zyban and Chantix. I reviewed possible side effects of therapy. I stressed that medication alone is not optimum but used in conjunction with behavioral counseling will add to success for cessation. The patient decided that the best course of action for him would be Chantix. He has had success with this in the past. Because he was a heavy smoker in the past he needs the Nicotine lozenges to help with cravings as the max dose of Chantix, 2 mga day, has not been sufficient to block all of his nicotinic receptors in his brain. TREATMENT PLAN/RECOMMENDATIONS: [X ] Provide [facility] [place] Discuss and prescribe (if appropriate) smoking cessation medication(s): [ ] Nicotine Patch [ ] if 20 cigs/day 21 mg QD x 4-6 wks, then 14 mg QD x 2-4 wks, then 7 mg QD x 2 wks [ ] if 10-15 cigs/day 14 mg QD x 4 wks, then 7 mg QD x 4 weeks [ ] if 10 or less cigs/day 7 mg QD x 4-8 weeks [X ] Nicotine Lozenge [ ] 2 mg (if smoke/chew >30 min after waking) [X ] 4 mg (if smoke/chew <30 min after waking) Weeks 1-6 1 every 1-2 hours, Week 7-9 1 every 2-4 hours, Week 10-12 1 every 4-8 hours. Max 20 lozenges a day. [ ] Nicotine Gum [ ] 2 mg (if <10 cigs/day) [ ] 4 mg (if>10 cigs/day or chew) 1 piece Q1-2 hours, max 24 pieces per day, up to 12 wks and/or PRN [ ] Non-NRT [ ] Bupropion SR 150 mg Days 1-3 1 tab PO QD, Day 4-end 1 tab PO BID, 2-6 months [ ] Varenicline Day 1-3 0.5 mg PO QAM, Day 4-7 0.5 mg PO BID, Day 8-end 1 mg PO BID Refer to [place] [employer]uit [employer] e-referral placed X Refer to [place] 802 Quits (fill out and fax enrollment form) (For Patients and Providers) will also send e-referral X Develop a plan: set a quit date, get rid of ALL cigarettes and shawn trays at home, car and work; don't let people smoke in the house; identify smoking triggers and coping strategies. X Get support and encouragement; tell family, friends, and co-workers that you are quitting; ask family and friends not to smoke around you or to leave cigarettes out; get individual, group or telephone counseling. The more support a person has, the better the chance of being successful! X Learn new skills and behaviors; use 4Ds to deal with cravings -Take a DEEP breath; DRINK a lot ofwater DELAY, DO something else to distract yourself, (use Nicotine gum or lozenge), change daily routine; do something else to reduce stress, such as exercise, hot bath, read; do something enjoyable everyday. X Be prepared for relapse or difficult situations: avoid drinking alcohol, avoid other smokers. Most people try to quit several times before they finally succeed, so it is important not to get discouraged if you start smoking again. X Follow up: with his PCP and the [place] quitline, 802QUITS Patient not ready to quit at this time. Follow up: X It is strongly recommended that the patient be discharged to home on Tobacco Treatment medication(s) as recommended above and follow up with either PCP and/or Quit line [id number]. X These recommendations have been discussed with the patient's primary team. DARCY STALEY APRN, [facility] Pager #[phone] [facility] Thor[facility] Time spent counseling [ ] 3-10 minutes [X ] > 10 minutes * Plan of Care - Venice Huffman RN - 11/25/2016 3:42 AM EDT Problem: Patient Care Overview Goal: Plan of Care Review 11/24/16 0029 11/24/16 2100 Plan of Care Review Progress progress toward functional goals as expected -- Coping/Psychosocial Plan Of Care Reviewed With -- patient OUTCOME EVALUATION NOTE: OUTCOME SUMMARY: SR on telemetry, R radial WDL. No complaints of pain or discomfort. Slept in between care. PLAN MOVING FORWARD: D/C home today INDIVIDUALIZED FALL PREVENTION INTERVENTIONS: Patient-specific fall risk factors per assessment: [current deficits]: none Assistance [level of assistance required for transfers and ambulation]: IND Supervision [direct monitoring required during toileting and ADLs]: IND Surveillance [continuous indirect monitoring]: Telemetry, purposeful rounding Patient-specific fall prevention interventions for sensory deficits provided, if applicable: [X] N/A CPG GOAL OUTCOME EVALUATION: Goal: Fall Prevention-Safe Patient Handling 11/24/16 0029 11/24/162099 Musculoskeletal Interventions Muscle Strengthening activity/mobility promoted -- Activity and Safety Assistive Device None -- Daily Care Interventions Self-Care Promotion independence encouraged;BADL personal objects within reach;BADL personal routines maintained;safe use of adaptive equipment encouraged -- Gray Fall Risk History of Falling -- 0 Secondary Diagnosis -- 15 Ambulatory Aids -- 0 Intravenous Therapy/Heparin/Saline Lock -- 20 Gait/Transferring -- 0 Mental Status -- 0 Score -- 35 OTHER Gray Fall Risk -- Med Restraint Interventions Safety Promotion/Fall Prevention -- safety round/check completed;nonskid shoes/slippers when out ofbed Positioning Body Position -- independent Goal: Infection Control 11/24/162099 Safety Interventions Isolation Precautions standard precautions maintained Infection Prevention rest/sleep promoted Coping Strategies Supportive Measures active listening utilized;self-reflection promoted;self-care encouraged;verbalization of feelings encouraged Goal: Discharge Needs Assessment 11/22/16 0421 11/23/16 0312 11/24/16 002 Discharge Needs Assessment Concerns To Be Addressed -- -- no discharge needs identified Readmission Within The Last 30 Days -- -- no previous admission in last 30 days Discharge Disposition -- home or self-care -- Current Health Anticipated Changes Related to Illness none -- -- Living Environment Transportation Available -- family or friend will provide -- Problem: Cardiac Cath/Percutaneous Coronary Intervention (Adult) Goal: Signs and Symptoms of Listed Potential Problems Will be Absent, Minimized or Managed (CardiacCath/Percutaneous Coronary Intervention) Signs and symptoms of listed potential problems will be absent, minimized or managed by discharge/transition of care (reference Cardiac Cath/Percutaneous Coronary Intervention (Adult) CPG). 11/25/16 0320 Cardiac Cath/Percutaneous Coronary Intervention Problems Assessed (Cardiac Catheterization) all Problems Present (Cardiac Catheterization) none * Plan of Care - Esha Chen RN - 11/24/2016 3:31 PM EDT Problem: Patient Care Overview Goal: Plan of Care Review Outcome: Ongoing (Interventions Implemented as Appropriate) 11/24/16 0900 Coping/Psychosocial Plan Of Care Reviewed With patient OUTCOME EVALUATION NOTE: OUTCOME SUMMARY: Uneventful day. No c/o's pain/discomfort. PLAN MOVING FORWARD: Awaiting cath INDIVIDUALIZED FALL PREVENTION INTERVENTIONS: Patient-specific fall risk factors per assessment: [current deficits]: none Assistance [level of assistance required for transfers and ambulation]: independent Supervision [direct monitoring required during toileting and ADLs]: Call otoole within reach Surveillance [continuous indirect monitoring]: Hourly rounds Patient-specific fall prevention interventions for sensory deficits provided, if applicable: CPG GOAL OUTCOME EVALUATION: * Initial Assessments - Son Marley RN - 11/24/2016 8:28 AM EDT Office of Care Management Initial Assessment SON MARLEY RN reviewed record and discussed patient with Care Team. Source of Information: Patient Introduced self/reviewed role; services accepted. Reason for Hospitalization: 11/21/16: Presented with Chest Pain, admitted for evaluation and management of Unstable Angina. Past Medical History: Diagnosis Date ??? CAD [...] Within the Past 30 Days: [place] [facility] at outside hospitals, per pt's report. [...] LNAs have been excellent. Current Functional Ability: MIVF and Heparin infusion in place. Pt on room air; awaiting cardiac catheterization. 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 I've been disabled for five years due to Fibromyalgia and Arthritis. Home Environment: Lives with his , Dasia in [place], [place]. Social & Family Supports/Community Resources: Dasia Coelho (Spouse) [address] [facility] [phone] (H) [phone] (M) Behavioral Health History: Per pt report, has Anxiety and Depression, (on Cymbalta and Wellbutrin). Substance Use/Abuse: Current every day smoker; I'm down to 2 cigarettes a day. EtOH: None. Illicit Drug Use: Marijuana every day, medical use. Other Pertinent/Service Specific Information: None Health/Prescription Coverage: Primary Insurance: MEDICARE PART A & B Secondary Insurance: MEDICAID [place] Prescription Coverage: Yes, has Silver Script. Preferred Pharmacy: [id number] - [place], [place] - [address] [place] [address] ? [address] [place] [id number] ? Not a 24 hour pharmacy; exact hours not known Other: None Primary Care Provider: Coni Lim MD [phone] Patient/Caregiver Goals of Treatment: To return home and to his normal activities. Potential Needs for Transition of Care: Rehab/SNF: Pt has never been a pt in a rehab setting. Home Health: [facility] in the past (after right knee surgery). DME: [facility] at home (doesn't consistently use it). Dialysis: N/A Community Resources: None Transportation: I may need RCT transportation. My car [facility] in [facility] parking lot. I havethe only set of keys. Other: None Anticipated Barriers to Discharge/Special Considerations: No barriers noted at this time. Plan: A member of the Care Management team will continue to monitor progress, follow for continuity of care and assist with transition of care planning. SON MARLEY RN Pager: [phone] * Plan of Care - Christy Medina RN - 11/24/2016 12:32 AM EDT Problem: Patient Care Overview Goal: Plan of Care Review Outcome: Ongoing (Interventions Implemented as Appropriate) 11/23/16205511/24/1628 Plan of Care Review Progress -- progress toward functional goals as expected Coping/Psychosocial Plan Of Care Reviewed With patient -- OUTCOME EVALUATION NOTE: OUTCOME SUMMARY: No acute complications through night, no complaints of chest pain or SOB, heparin gtt maintained. Telemetry notified RN of minor ST changes, RN notified MD. Will continue to monitor. PLAN MOVING FORWARD: Cath in AM INDIVIDUALIZED FALL PREVENTION INTERVENTIONS: Patient-specific fall risk factors per assessment: [current deficits]: Generalized weakness, IVs, tele, unfamiliar environment Assistance [level of assistance required for transfers and ambulation]: standby Supervision [direct monitoring required during toileting and ADLs]: Independent Surveillance [continuous indirect monitoring]: Telemetry, call otoole in reach, room near unit station Patient-specific fall prevention interventions for sensory deficits provided, if applicable: yes CPG GOAL OUTCOME EVALUATION: Ongoing Goal: Fall Prevention-Safe Patient Handling Outcome: Ongoing (Interventions Implemented as Appropriate) 11/23/16205511/24/1628 Musculoskeletal Interventions Muscle Strengthening -- activity/mobility promoted Activity and Safety Assistive Device -- None Daily Care Interventions Self-Care Promotion -- independence encouraged;BADL personal objects within reach;BADL personal routines maintained;safe use of adaptive equipment encouraged Gray Fall Risk History of Falling 0 -- Secondary Diagnosis 15 -- Ambulatory Aids 0 -- Intravenous Therapy/Heparin/Saline Lock 20 -- Gait/Transferring 0 -- Mental Status 0 -- Score 35 -- OTHER Gray Fall Risk Med -- Restraint Interventions Safety Promotion/Fall Prevention activity supervised;fall prevention program maintained;muscle strengthening facilitated;nonskid shoes/slippers when out of bed;safety round/check completed -- Positioning Body Position independent -- Goal: Infection Control Outcome: Ongoing (Interventions Implemented as Appropriate) 11/23/162055 Safety Interventions Isolation Precautions standard precautions maintained Infection Prevention environmental surveillance performed;equipment surfaces disinfected;rest/sleeppromoted Coping Strategies Supportive Measures active listening utilized;decision-making supported;positive reinforcement provided;problem solving facilitated;relaxation techniques promoted;self-care encouraged;self-reflectionpromoted;self-responsibility promoted;verbalization of feelings encouraged Goal: Discharge Needs Assessment Outcome: Ongoing (Interventions Implemented as Appropriate) 11/24/16 0029 Discharge Needs Assessment Concerns To Be Addressed no discharge needs identified Readmission Within The Last 30 Days no previous admission in last 30 days * Plan of Care - Esha Chen RN - 11/23/2016 12:33 PM EDT Problem: Patient Care Overview Goal: Plan of Care Review Outcome: Ongoing (Interventions Implemented as Appropriate) 11/22/16 18011/23/16 0736 Plan of Care Review Progress progress towards functional goals is fair -- Coping/Psychosocial Plan Of Care Reviewed With -- patient OUTCOME EVALUATION NOTE: OUTCOME SUMMARY: Remains pain free on a heparin gtt. PLAN MOVING FORWARD: NPO after MN for cath in AM. Tobacco cessation. INDIVIDUALIZED FALL PREVENTION INTERVENTIONS: Patient-specific fall risk factors per assessment: [current deficits]: none Assistance [level of assistance required for transfers and ambulation]: independent Supervision [direct monitoring required during toileting and ADLs]: Call otoole within reach Surveillance [continuous indirect monitoring]: Hourly rounds Patient-specific fall prevention interventions for sensory deficits provided, if applicable: CPG GOAL OUTCOME EVALUATION: Goal: Fall Prevention-Safe Patient Handling Outcome: Ongoing (Interventions Implemented as Appropriate) 11/22/16 19411/23/16 0736 Gray Fall Risk History of Falling -- 0 Secondary Diagnosis -- 15 Ambulatory Aids -- 0 Intravenous Therapy/Heparin/Saline Lock -- 20 Gait/Transferring -- 0 Mental Status -- 0 Score -- 35 OTHER Gray Fall Risk -- Med Restraint Interventions Safety Promotion/Fall Prevention -- fall prevention program maintained;nonskid shoes/slippers when out of bed;safety round/check completed Positioning Body Position independent -- Goal: Infection Control Outcome: Ongoing (Interventions Implemented as Appropriate) 11/23/16 0736 Safety Interventions Isolation Precautions standard precautions maintained Infection Prevention rest/sleep promoted;environmental surveillance performed Coping Strategies Supportive Measures active listening utilized;self-care encouraged * Plan of Care - Fany Gipson RN - 11/22/2016 6:10 PM EDT Problem: Patient Care Overview Goal: Plan of Care Review Outcome: Ongoing (Interventions Implemented as Appropriate) 11/22/16 0833 11/22/16 1801 Plan of Care Review Progress -- progress towards functional goals is fair Coping/Psychosocial Plan Of Care Reviewed With patient -- OUTCOME EVALUATION NOTE: OUTCOME SUMMARY: Romeo Coelho AAOx4, NAD, Neuro checks wnl , Speech clear and logical, LS Dim in LLL and RLL, no signs of distress, V/S WDL, reports of pain none, B/S in all 4 quadrants passing flatus, BM on 11/21.Patient ambulated around Unit With SBA some SOB with ambulating that resolved after resting and then continuing walk. Tolerating CC Diet with no reports of N/V. Blood Glucose WNL, no insulin treatment. Up in chair formeals. I/O this shift: In: 1069.3 [P.O.:540; I.V.:529.3] Out: 900 [Urine:900] Continue to monitor intake and output Patient Vitals for the past 24 hrs: BP Temp Temp src Pulse Resp SpO2 Height Weight 11/22/16 1651 112/65 36.6 ??C (97.9 ??F) Oral 74 18 98 % - - 11/22/16 1128 113/67 36.5 ??C (97.7 ??F) Oral 76 18 97 % - - 11/22/16 0744 113/70 36.7 ??C (98.1 ??F) Oral 71 16 95 % - - 11/22/16 0543 - - - - - - - 95.3 kg (210 lb 1.6 oz) 11/22/16 0500 107/62 36.5 ??C (97.7 ??F) Oral 74 18 97 % - - 11/22/16 0210 - - - - - - 177.8 cm (5' 10) 95.4 kg (210 lb 5.1 oz) 11/22/16 0024 105/66 36.5 ??C (97.7 ??F) Oral 70 18 95 % - - 11/21/162014 106/64 36.7 ??C (98.1 ??F) Oral 71 18 95 % - - 11/21/162009 - - - - - - - 94 kg (207 lb 3.7 oz) Teaching provided to patient this shift for heparin, bleeding precautions, ambulation and up to chair through out the day Concerns voiced by patient none. Otherwise no significant events this shift. PLAN MOVING FORWARD: Vitals every 4 hours per nursing standards Ambulate/Up in chair for meals CC Diet I & O's every 4 hours per nursing standards Medication reviewed with patient Continue Heparin drip: Next PTT @ 2352 on 11/22 Completed Chest Radiograph today, Echo and Cardiac Enzymes Pending Court Transcriber ? Thursday more likely Thursday (pt. Informed) INDIVIDUALIZED FALL PREVENTION: Patient-specific fall risk factors per assessment: [current deficits]: Patient Active Problem List Diagnosis Code ??? Dyslipidemia E78.5 ??? GERD (gastroesophageal reflux disease) K21.9 ??? HTN (hypertension) I10 ??? DM (diabetes mellitus) E11.9 ??? Smoker F17.200 ??? CAD (coronary artery disease) I25.10 ??? Hx-TIA (transient ischemic attack) Z86.73 ??? Chest pain R07.9 ??? Unstable angina I20.0 Assistance: SBA Supervision: Independent Surveillance [continuous indirect monitoring]: Purposeful hourly rounding, bed/chair alarm, bed in locked position, call light within reach, Telemetry Patient-specific fall prevention interventions for sensory deficits provided, if applicable: N/A CPG GOAL OUTCOME EVALUATION Cardiac/Telemetry Nursing Progress Note [id number] Subjective: Patient reports no s/s, mild SOB with ambulation Objective: Vital Signs: See Vital signs below Cardiac Meds: See online MAR Labs: See labs in online chart. Telemetry Report: [id number]: Intermittent SA, [place] 0.17, QRS 0.08, RR 0.75, QT 0.35, QTc 0.40 Plan: Continue telemetry monitoring. Notify MD of any changes. See Attached Tele Strip. (in green paper chart). * Care Management - Panda Walters MSW - 11/22/2016 11:19 AM EDT Notified by Care Management Utilization Management (UM) Department that patient remains in observation status and anticipated length of stay will be greater than 24 hours. Medicare Outpatient Observation Notice (CEBALLOS) has been given and explained to Romeo Laquita. Questions were answered to the best of my ability. Romeo Weineroney was offered copies of [facility] publications; Are You a Hospital Inpatient or Outpatient?and Medicare Rights and Protections. Notice has been signed along with date and time, a copy of notice made and given to patient/medical service representative. Original notice to be scanned into patient's medical record. TIMBO Mason * Plan of Care - Debbie Rubin RN - 11/22/2016 4:27 AM EDT Problem: Patient Care Overview Goal: Plan of Care Review OUTCOME EVALUATION NOTE: OUTCOME SUMMARY: VSS. Pt denies any pain or SOb. Pt alert and oriented. Pt maintained NPO after midnight except for medications. Pt denies needs at this time. Call O[place]ole within reach. Will continue to monitor. PLAN MOVING FORWARD: Possible Cath today INDIVIDUALIZED FALL PREVENTION INTERVENTIONS: Patient-specific fall risk factors per assessment: [current deficits]: New environment, IV Assistance [level of assistance required for transfers and ambulation]: SBA Supervision [direct monitoring required during toileting and ADLs]: Yes first 24 hour rule Surveillance [continuous indirect monitoring]: Yes, tele Patient-specific fall prevention interventions for sensory deficits provided, if applicable: [X] N/A CPG GOAL OUTCOME EVALUATION: ongonig assessment Goal: Fall Prevention-Safe Patient Handling 11/21/16199911/22/16 0400 Gray Fall Risk History of Falling 0 -- Secondary Diagnosis 15 -- Ambulatory Aids 0 -- Intravenous Therapy/Heparin/Saline Lock 20 -- Gait/Transferring 10 -- Mental Status 0 -- Score 45 -- OTHER Gray Fall Risk High -- Restraint Interventions Safety Promotion/Fall Prevention -- safety round/check completed;nonskid shoes/slippers when out ofbed;muscle strengthening facilitated;fall prevention program maintained Goal: Infection Control 11/21/161999 Safety Interventions Isolation Precautions standard precautions maintained Infection Prevention single patient room provided;rest/sleep promoted;personal protective equipmentutilized;equipment surfaces disinfected;environmental surveillance performed Goal: Discharge Needs Assessment 11/22/16 0421 Discharge Needs Assessment Readmission Within The Last 30 Days no previous admission in last 30 days Current Health Anticipated Changes Related to Illness none documented in this encounter Plan of Treatment Not on file documented as of this encounter Procedures Procedure Name Priority Date/Time Associated Diagnosis Comments EPILEPSY PHYSICIAN SCAN 11/26/2016 12:00 AM EDT POCT GLUCOSE Routine 11/25/2016 7:42 AM EDT EKG 12-LEAD Routine 11/25/2016 7:23 AM EDT Unstable angina BMP W/FASTING GLUCOSE Routine 11/25/2016 4:52 AM EDT HEMOGRAM Routine 11/25/2016 4:52 AM EDT DIFFERENTIAL, AUTOMATED Routine 11/26/19 4:52 AM EDT [place] Routine 11/25/2016 4:52 AM EDT CBC (WITH DIFF) Routine 11/25/2016 4:52 AM EDT EKG 12-LEAD Routine 11/24/2016 7:05 PM EDT Unstable angina CARDIAC CATHETERIZATION Routine 11/25/19 6:04 PM EDT POCT GLUCOSE Routine 11/24/2016 4:27 PM EDT POCT GLUCOSE Routine 11/24/2016 11:56 AM EDT POCT GLUCOSE Routine 11/24/2016 7:43 AM EDT EKG 12-LEAD Routine 11/24/2016 7:20 AM EDT Unstable angina HEMOGRAM Routine 11/24/2016 6:20 AM EDT DIFFERENTIAL, AUTOMATED Routine 11/25/19 17 6:20 AM EDT APTT STAT 11/24/2016 6:20 AM EDT CBC (WITH DIFF) Routine 11/24/2016 6:20 AM EDT APTT STAT 11/23/2016 11:27 PM EDT POCT GLUCOSE Routine 11/23/2016 7:36 PM EDT POCT GLUCOSE Routine 11/23/2016 5:20 PM EDT APTT STAT 11/23/2016 12:39 PM EDT POCT GLUCOSE Routine 11/23/2016 11:47 AM EDT POCT GLUCOSE Routine 11/23/2016 7:36 AM EDT EKG 12-LEAD Routine 11/23/2016 7:16 AM EDT Unstable angina BMP W/FASTING GLUCOSE Routine 11/23/2016 6:24 AM EDT HEMOGRAM Routine 11/23/2016 6:24 AM EDT DIFFERENTIAL, AUTOMATED Routine 11/24/19 17 6:24 AM EDT APTT STAT 11/23/2016 6:24 AM EDT CBC (WITH DIFF) Routine 11/23/2016 6:24 AM EDT APTT STAT 11/23/2016 12:03 AM EDT POCT GLUCOSE Routine 11/22/2016 7:45 PM EDT CARDIAC ENZYMES ([facility]) Routine 11/22/2016 5:11 PM EDT APTT STAT 11/22/2016 5:11 PM EDT POCT GLUCOSE Routine 11/22/2016 4:50 PM EDT ECHO COMPLETE W CONTRAST Routine 11/22/2016 12:59 PM EDT Unstable angina POCT GLUCOSE Routine 11/22/2016 12:11 PM EDT [place] STAT 11/22/2016 10:06 AM EDT APTT Routine 11/22/2016 10:06 AM EDT POTASSIUM STAT 11/22/2016 10:06 AM EDT XR CHEST PA AND LATERAL Routine 11/23/19 17 9:40 AM EDT POCT GLUCOSE Routine 11/22/2016 7:44 AM EDT EKG 12-LEAD Routine 11/22/2016 7:12 AM EDT Unstable angina BMP W/FASTING GLUCOSE Routine 11/22/2016 3:58 AM EDT HEMOGRAM Routine 11/22/2016 3:58 AM EDT DIFFERENTIAL, AUTOMATED Routine 11/23/19 17 3:58 AM EDT C[place]IAC [place] Routine 11/22/2016 3:58 AM EDT APTT STAT 11/22/2016 3:58 AM EDT CBC (WITH DIFF) Routine 11/22/2016 3:58 AM EDT LIPID PANEL (REFLEX DIRECT LDL) Routine 11/22/2016 3:58 AM EDT EKG 12-LEAD STAT 11/21/2016 8:34 PM EDT Unstable angina HEMOGRAM STAT 11/21/2016 8:32 PM EDT DIFFERENTIAL, AUTOMATED STAT 11/22/19 17 8:32 PM EDT CARDIAC EN[place]YMES [place] STAT 11/21/2016 8:32 PM EDT APTT STAT 11/21/2016 8:32 PM EDT PROTHROMBIN TIME STAT 11/21/2016 8:32 PM EDT CBC (WITH DIFF) STAT 11/21/2016 8:32 PM EDT TSH STAT 11/21/2016 8:32 PM EDT PRO-BRAIN NATRIURETIC PEPTIDE STAT 11/21/2016 8:32 PM EDT HEMOGLOBIN A1C STAT 11/21/2016 8:32 PM EDT HEPATIC FUNCTION PANEL STAT 7 8:32 PM EDT BASIC METABOLIC PANEL STAT 11/21/2016 8:32 PM EDT POCT GLUCOSE Routine 11/21/2016 8:12 PM EDT documented in this encounter Results * SCAN DOC: EPILEPSY PHYSICIAN (11/26/2016 12:00 AM EDT) Anatomical Region Laterality Modality Other Narrative 11/26/2016 12:00 AM EDT Ordered by an unspecified provider. Scanning Provider MEDIA MGR SCAN EXT O RDR/RSLT * POCT Glucose (11/25/2016 7:42 AM EDT) [facility] Glucose, POC 123 65 - 199 mg/dL [facility] Comment: Supplemental ranges: <140 mg/dL before meals <180 mg/dL all other times of the day Blood specimen (specimen) 11/25/2016 7:42 AM EDT 11/25/2016 7:42 AM EDT Roque Sanches MD POINT OF CARE TEST O RDERABLES Performing Organization Address [facility] Co de Phone Number [facility] [place] [address] * EKG 12 Lead (11/25/2016 7:23 AM EDT) Ventricular rate 70 BPM MUSE SYSTEM Atrial Rate 70 BPM MUSE SYSTEM P-R Interval 140 ms MUSE SYSTEM QRS Duration 88 ms MUSE SYSTEM Q-T Interval 388 ms MUSE SYSTEM QTC Calculated (Bezet) 419 ms MUSE SYSTEM Calculated P [place] 3 degrees MUSE SYSTEM Calculated R [place] 19 degrees MUSE SYSTEM Calculated T [place] 42 degrees MUSE SYSTEM INTERPRETATION Normal sinus rhythm Normal ECG When compared with ECG of 24-NOV-2016 19:05, (unconfirmed) No significant change was found I personally reviewed the tracing and edited the fellows interpretation Confirmed by fellow MD Kalin, Nessa Lee ([id number]) on 11/25/2016 10:44:22 AM Confirmed by MD Meli, Tigre ([id number]) on 11/25/2016 5:24:33 PM MUSE SYSTEM 11/25/2016 7:23 AM EDT 11/25/2016 5:24 PM EDT Roque Sanches MD ECG ORDERABLES Performing Organization Address [facility] Co de Phone Number MUSE SYSTEM * Cardiac Enzymes (11/25/2016 4:52 AM EDT) Troponin-T <0.03 <=0.03 ng/mL [facility] Comment: 0.03 ng/mL: Represents the 99th percentile upper reference limit for normals. >0.03 ng/mL: Elevated cardiac troponin T level indicative of myocardial damage. Diagnosis of acute, evolving or recent NV requires a typical rise and gradual fall of cTnT with at least ONE of the following: a) Ischemic symptoms b) Development of pathologic Q waves on the ECG c) ECG changes indicative of eschemia (S-T segment elevation/depression) d) Coronary artery intervention Serial bloods should be obtained for testing on admission, at 6 to 9 hrs and again at 12 to 24 hrs if earlier samples are negative and the clinical index of suspicion is high. Reference: [Myocardial infarction redefined? a consensus document of the Joint Society of Cardiology/[place] College [employer] Committee for the redefinition of myocardial infarction. ??Journal of the [place] College [employer] 2000; 36: 959-969] Creatine Kinase 139 0 - 200 unit/L [facility] Comment:result rechecked-sb Blood specimen (specimen) Venous Draw / Unknown 11/25/2016 4:52 AM EDT 11/25/2016 5:41 AM EDT Narrative Resulting Agency Comment Spec In Lab Roque Sanches MD CHEMISTRY ORDERABLES [facility] [place] [address] * Differential, Automated (11/25/2016 4:52 AM EDT) Neutrophil % 61.6 % [facility] Neutrophil Absolute 5.56 1.70 - 6.10 x10(3)/[facility] Lymph % 26.8 % [facility] Lymphocytes Abs 2.4 0.9 - 3.2 x10(3)/[facility] Monocyte % 6.3 % [facility] Monocyte Abs 0.6 0.3 - 0.9 x10(3)/[facility] Eos % 4.1 % [facility] Eosinophils Abs 0.4 0.0 - 0.4 x10(3)/[facility] Basophil % 0.8 % [facility] Baso Absolute 0.1 0.0 - 0.1 x10(3)/[facility] Immature Gran % 0.40 % [facility] Comment: Immature granulocytes(IG's)percentage and absolute count will include metamyelocytes, myelocytes, and promyelocytes. Blood smears from CBCs yielding IG's will be scanned manually for concordance. If this scan disagrees with the automated IG or if promyelocytes are noted, a manual differential will be performed. Immature Gran Absolute 0.04 0.00 - 0.04 x10(3)/[facility] Blood specimen (specimen) 11/25/2016 4:52 AM EDT 11/25/2016 5:37 AM EDT Narrative Resulting Agency Comment Spec In Lab Roque Sanches MD HEMATOLOGY ORDERABLE S [facility] [place] [address] * (ABNORMAL) Hemogram (11/25/2016 4:52 AM EDT) White Blood Cell 9.0 4.0 - 9.5 x10(3)/[facility] Red Blood Cell 5.04 4.58 - 5.54 x10(6)/[facility] Hemoglobin 14.5 13.7 - 16.5 gm/dL [facility] Hematocrit 44.2 40.5 - 48.5 % [facility] Mean Cell Volume 87.7 82.9 - 93.1 [facility] Mean Cell Hemoglobin 28.8 27.5 - 32.1 pg [facility] Mean Cell Hemoglobin Concentration 32.8 32.0 - 35.7 gm/dL [facility] Platelet 214 145 - 357 x10(3)/[facility] RDW Standard Deviation 45.1(H) 36.0 - 45.0 [facility] RDW coefficient of variation 14.0(H) 11.4 - 13.8 % [facility] Mean Platelet Volume 11.1 7.6 - 12.9 [facility] NRBC% auto 0.0 % [facility] NRBC Absolute 0.000 0.000 - 0.000 x10(3)/[facility] Blood specimen (specimen) 11/25/2016 4:52 AM EDT 11/25/2016 5:37 AM EDT Narrative Resulting Agency Comment Spec In Lab Roque Sanches MD HEMATOLOGY ORDERABLE S [facility] [place] [address] * (ABNORMAL) BMP w/fasting Glucose (11/25/2016 4:52 AM EDT) Glucose Fasting 113(H) 65 - 99 mg/dL [facility] Comment: ?Fasting* Glucose Interpretive [...] of Diabetes Mellitus, Position Statement from the [place] [employer]. ??Diabetes Care, Volume 33, Supplement 1, Aug 2009 Blood Urea Nitrogen 10 10 - 20 mg/dL [facility] Creatinine 0.87 0.80 - 1.50 mg/dL [facility] Comment: Please note that the pediatric reference intervals supplied above were not validated [place] [facility] [place] Results from pediatric patients should be interpreted in conjunction to the patient's age, height and muscle mass. Sodium 142 135 - 145 mmol/L [facility] Potassium 3.9 3.5 - 5.0 mmol/L [facility] Comment: Please note: ??Patients with WBC >100,000 may have falsely elevated Potassium levels. ??For accurate Potassium quantification in these patients send serum separator tube (gold top) for subsequent determinations. ??Contact the Clinical Chemistry Laboratory if there are any questions. Chloride 108(H) 98 - 107 mmol/L [facility] Carbon Dioxide 19(L) 22 - 31 mmol/L [facility] Anion Gap 15 5 - 15 mmol/L [facility] Calcium 9.5 8.5 - 10.5 mg/dL [facility] Est Glomerular Filtration Rate >60 >=60 [facility] Comment: This estimated GFR (eGFR) value was calculated using the MDRD equation which has been validated on patients between the ages of 18 and 70. The MDRD should not be used to assess kidney function in patients < 18 years of age or in patients with extremes of body mass, or in patients with acute kidney failure. This value should be multiplied by 1.2 for patients. For further information please copy and paste the following links into your internet browser. [email or web address]://[email or web address]/DHnkdep [email or web address]://x.ai/DHMCnkf Blood specimen (specimen) 11/25/2016 4:52 AM EDT 11/25/2016 5:37 AM EDT Narrative Resulting Agency Comment Spec In Lab Roque Sanches MD CHEMISTRY ORDERABLES Performing Organization Address [facility] Co de Phone Number [facility] [place] [phone] * EKG 12 Lead (11/24/2016 7:05 PM EDT) Ventricular rate 85 BPM MUSE SYSTEM Atrial Rate 85 BPM MUSE SYSTEM P-R Interval 152 ms MUSE SYSTEM QRS Duration 86 ms MUSE SYSTEM Q-T Interval 354 ms MUSE SYSTEM QTC Calculated (Bezet) 421 ms MUSE SYSTEM Calculated P [place] 55 degrees MUSE SYSTEM Calculated R [place] 44 degrees MUSE SYSTEM Calculated T [place] 40 degrees MUSE SYSTEM INTERPRETATION Normal sinus rhythm Normal ECG When compared with ECG of 24-NOV-2016 07:20, No significant change was found Confirmed by Wale Mckeon MD ([id number]) on 11/25/2016 4:12:17 PM MUSE SYSTEM 11/24/2016 7:05 PM EDT 11/25/2016 4:12 PM EDT Roque Sanches MD ECG ORDERABLES Performing Organization Address [facility] Co de Phone Number MUSE SYSTEM * CARDIAC CATHETERIZATION (11/24/2016 6:04 PM EDT) Anatomical Region Laterality Modality Other Narrative 11/24/2016 6:23 PM EDT ?[facility] ? Cardiac Catheterization/Intervention Report ? Patient Name: Romeo Coelho. ? Procedure Date: 11/24/2016 ? A #: [id number] ? Primary Physician: Alexandru, Anton T ? Case #: [id number] ? File Name: [id number] ? Catheterization Order Number: [id number] ? [facility] ? Final Report [place], [place] ? Patient Name: ? Romeo Coelho ? ID#: ?[id number] ? : ?1965 ? Procedure Date: ? November 24, 2016 ?Case #: ? [id number] ? Room: ? 6 ? Case Physician: ? Anton Horvath M.D. ?Start: ?17:26 ?Fellow: ? Katia Quiroz M.D. ? Admission: ??11/24/2016 ? Referring ? Reid Churchill M.D. ? Physicians: ?Coni V Berrian, M.D. ? Procedures: ?* Coronary Angiography ?* Left Heart Catheterization ?* Coronary Stent Insertion ? History ?Romeo Coelho is a 51 year old man. He has hypertension and a family ?history of coronary artery disease. The patient has a history of smoking ?(45 pack years) and is still smoking. He has diabetes managed with oral ?medication. The patient has unstable angina, negative troponin and a ?prior history of coronary artery disease. He has an angina classification ?of III. The patient had a remote coronary intervention procedure. He has ?a history of dyspnea with NYHA functional class II. The patient also has ?a history of transient ischemic attacks. Prior to the initiation of this ?procedure, the patient was designated as ASA Class III. ? Patient Status at Catheterization: ?The patient presented with: unstable angina (w/i 60 days). [place] ?Cardiovascular Society angina class was III. This patient was on beta ?blockers, calcium see blockers and nitrates prior to the procedure. No ?stress or imaging studies were performed prior to this procedure ? Technique: ?A 6 SLFr sheath was inserted in the right radial artery utilizing the ?Seldinger technique. The left coronary artery was injected utilizing a ?5Fr Shadi Radial catheter. A 5Fr Shadi Radial catheter was used to inject ?the right coronary artery. Left ventricular pressure was performed with a ?5Fr Shadi Radial catheter. Coronary stent insertion was performed and the ?equipment utilized will be described in the intervention summary section. ?7,500 units of heparin were administered. Intracoronary nitroglycerin was ?given during this case. A total of 200cc of Omnipaque were opened, 140cc ?of Omnipaque were administered and 60cc of Omnipaque were wasted. ?Radiation: Fluoro time was 8.0 minutes, dose area product was 132,294 ?mGYcm2 and air kerma was 1,689 mGY. ?The patient received the following medications prior to and during the ?procedure: Aspirin (any), Clopidogrel and Unfractionated Heparin (any). ? Hemodynamics: ?Left Heart Pressures ? Resting: ? Syst Diast ? EDP ?a ?v ? m ?Ao 99 ?63 ?79 ?LV 103 ? 7 ? Coronary Angiography: ?Dominance: Right ?Left Main ? There was mild diffuse disease of the entire vessel segment of the ? left main artery. ?Left Anterior Descending ? There was mild diffuse disease of the entire vessel segment of the ? left anterior descending artery (LAD). ??The previously placed stent ? is patent. The proximal segment of the LAD had a diffuse 30% ? stenosis. ?Left Circumflex ? There was mild diffuse disease of the entire vessel segment of the ? left circumflex artery (LCX). ?Right Coronary Artery ? There was mild diffuse disease of the entire vessel segment of the ? right coronary artery (RCA). ??The proximal segment of the RCA had a ? single discrete 75% stenosis. ??There also was a 30% ectatic single ? discrete stenosis of the distal segment of the RCA. ? Indication for Intervention: ?Coronary intervention was indicated for treatment of high risk unstable ?angina. Left ventricular Ejection Fraction was estimated at 55 percent. ?The priority for the procedure was Urgent. The NCDR indication for the ?procedure was PCI for high risk Non-STEMI or unstable angina. ? Intervention Summary: ?Right Coronary Artery ? Proximal 75% ? Stent insertion was performed on the 75% stenosis in the ? proximal segment of the RCA. This was a de abby lesion. ? According to the ACC/AHA classification system, this lesion ? was a type B1 moderate risk lesion. Primary prevention of ? restenosis was the indication for stent insertion. This was ? the culprit lesion. Vessel flow pre intervention was DANIEL 3. ? Stent insertion was accomplished through a 6 Fr. AL 1 guide. ? The lesion was predilated with a 2.50mm EUPHORA 12 MM . ??A ? premounted 3.50 x 12 mm Resolute (JACINDA) was deployed with a ? maximum inflation pressure of 12 atmospheres. ??Following stent ? deployment, the lesion was dilated using a 3.75mm NC EUPHORA ? 08 MM balloon with a maximum inflation pressure of 20 ? atmospheres. ? The final outcome was defined as successful. There was no ? residual stenosis following this intervention. The final DANIEL ? flow was 3. ? Vascular Access: ?Vascular Access Management: ? Mechanical Compression of the right radial artery access site was ? performed. ? Conclusions: ?* One vessel coronary artery disease (RCA) ?* Successful stent insertion of the proximal RCA lesion ?* Drug eluting stent placed. ? Complications/Events: ?The patient had no complications during these procedures. ? Recommendations: ?Based upon the results of this procedure, it was recommended that medical ?therapy be considered. 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 ? Comments: ?Classic anginal symptoms refractory to medications. ?The attending physician was present for the entire procedure. ?Dr. Anton Horvath M.D. performed the coronary angiography, left heart ?catheterization and stent insertion-coronary. ? Anton Horvath M.D. ? Electronically Signed by: Anton Horvath M.D. ? Report Finalized: 11/24/2016 ??18:17 ? Report Last Ammended: 11/25/2016 ??11:39 ? Procedure Note Anton Horvath MD - 11/25/2016 [facility] Cardiac Catheterization/Intervention Report Patient Name: Romeo Coelho Procedure Date: 11/24/2016 A #: [id number] Primary Physician: Anton Horvath Case #: [id number] File Name: [id number] Catheterization Order Number: [id number] [facility] FinalReport [place], [place] Patient Name: Romeo Coelho ID#:[id number] :1965 Procedure Date: November 24, 2016 Case #: [id number] Room: 6 Case Physician: Anton Horvath M.D. Start: 17:26 Fellow: Katia Quiroz M.D. Admission:11/24/2016 Referring Reid Churchill M.D. Physicians: Coni Lim M.D. Procedures: * Coronary Angiography * Left Heart Catheterization * Coronary Stent Insertion History Romeo Coelho is a 51 year old man. He has hypertension and afamily history of coronary artery disease. The patient has a history ofsmoking (45 pack years) and is still smoking. He has diabetes managed withoral medication. The patient has unstable angina, negative troponin and a prior history of coronary artery disease. He has an anginaclassification of III. The patient had a remote coronary intervention procedure. Hehas a history of dyspnea with NYHA functional class II. The patient alsohas a history of transient ischemic attacks. Prior to the initiation ofthis procedure, the patient was designated as ASA Class III. Patient Status at Catheterization: The patient presented with: unstable angina (w/i 60 days). [place] [employer] angina class was III. This patient was onbeta blockers, calcium see blockers and nitrates prior to theprocedure. No stress or imaging studies were performed prior to this procedure Technique: A 6 SLFr sheath was inserted in the right radial artery utilizingthe Seldinger technique. The left coronary artery was injected utilizinga 5Fr Shadi Radial catheter. A 5Fr Shadi Radial catheter was used toinject the right coronary artery. Left ventricular pressure was performedwith a 5Fr Shadi Radial catheter. Coronary stent insertion was performedand the equipment utilized will be described in the intervention summarysection. 7,500 units of heparin were administered. Intracoronarynitroglycerin was given during this case. A total of 200cc of Omnipaque were opened,140cc of Omnipaque were administered and 60cc of Omnipaque were wasted. Radiation: Fluoro time was 8.0 minutes, dose area product [id number] mGYcm2 and air kerma was 1,689 mGY. The patient received the following medications prior to and duringthe procedure: Aspirin (any), Clopidogrel and Unfractionated Heparin(any). Hemodynamics: Left Heart Pressures Resting: Syst Diast EDP a v m Ao 99 63 79 LV 103 7 Coronary Angiography: Dominance: Right Left Main There was mild diffuse disease of the entire vessel segment ofthe left main artery. Left Anterior Descending There was mild diffuse disease of the entire vessel segment ofthe left anterior descending artery (LAD). The previously placedstent is patent. The proximal segment of the LAD had a diffuse 30% stenosis. Left Circumflex There was mild diffuse disease of the entire vessel segment ofthe left circumflex artery (LCX). Right Coronary Artery There was mild diffuse disease of the entire vessel segment ofthe right coronary artery (RCA). The proximal segment of the RCAhad a single discrete 75% stenosis. There also was a 30% ectaticsingle discrete stenosis of the distal segment of the RCA. Indication for Intervention: Coronary intervention was indicated for treatment of high riskunstable angina. Left ventricular Ejection Fraction was estimated at 55percent. The priority for the procedure was Urgent. The NCDR indication forthe procedure was PCI for high risk Non-STEMI or unstable angina. Intervention Summary: Right Coronary Artery Proximal 75% Stent insertion was performed on the 75% stenosis in the proximal segment of the RCA. This was a de abby lesion. According to the ACC/AHA classification system, thislesion was a type B1 moderate risk lesion. Primary prevention of restenosis was the indication for stent insertion. Thiswas the culprit lesion. Vessel flow pre intervention was TIMI3. Stent insertion was accomplished through a 6 Fr. AL 1guide. The lesion was predilated with a 2.50mm EUPHORA 12 MM .A premounted 3.50 x 12 mm Resolute (JACINDA) was deployed witha maximum inflation pressure of 12 atmospheres. Followingstent deployment, the lesion was dilated using a 3.75mm NCEUPHORA 08 MM balloon with a maximum inflation pressure of 20 atmospheres. The final outcome was defined as successful. There was no residual stenosis following this intervention. The finalTIMI flow was 3. Vascular Access: Vascular Access Management: Mechanical Compression of the right radial artery access sitewas performed. Conclusions: * One vessel coronary artery disease (RCA) * Successful stent insertion of the proximal RCA lesion * Drug eluting stent placed. Complications/Events: The patient had no complications during these procedures. Recommendations: Based upon the results of this procedure, it was recommended thatmedical therapy be considered. The patient's medical regimen was changed as follows: Continue mcfp aspirin and plavix. Comments: Classic anginal symptoms refractory to medications. The attending physician was present for the entire procedure. Dr. Anton Horvath M.D. performed the coronary angiography, leftheart catheterization and stent insertion-coronary. Anton Horvath M.D. Electronically Signed by: Anton Horvath M.D. Report Finalized: 11/24/2016 18:17 Report Last Ammended: 11/25/2016 11:39 Anton Horvath MD CARDIAC CATH ORDERAB LES * POCT Glucose (11/24/2016 4:27 PM EDT) Glucose, POC 88 65 - 199 mg/dL [facility] Comment: Supplemental ranges: <140 mg/dL before meals <180 mg/dL all other times of the day Blood specimen (specimen) 11/24/2016 4:27 PM EDT 11/24/2016 4:27 PM EDT Roque Sanches MD POINT OF CARE TEST O RDERABLES [facility] [place] [address] * POCT Glucose (11/24/2016 11:56 AM EDT) Glucose, POC 110 65 - 199 mg/dL [facility] Comment: Supplemental ranges: <140 mg/dL before meals <180 mg/dL all other times of the day Blood specimen (specimen) 11/24/2016 11:56 AM EDT 11/24/2016 11:56 AM EDT Roque Sanches MD POINT OF CARE TEST O RDERAAIRAM Performing Organization Address [facility] Co de Phone Number [facility] [place] [address] * POCT Glucose (11/24/2016 7:43 AM EDT) Glucose, POC 131 65 - 199 mg/dL [facility] Comment: Supplemental ranges: <140 mg/dL before meals <180 mg/dL all other times of the day Blood specimen (specimen) 11/24/2016 7:43 AM EDT 11/24/2016 7:43 AM EDT Roque Sanches MD POINT OF CARE TEST O RDERAAIRAM Performing Organization Address [facility] Co de Phone Number [facility] [place] [address] * EKG 12 Lead (11/24/2016 7:20 AM EDT) Ventricular rate 65 BPM MUSE SYSTEM Atrial Rate 65 BPM MUSE SYSTEM P-R Interval 158 ms MUSE SYSTEM QRS Duration 90 ms MUSE SYSTEM Q-T Interval 396 ms MUSE SYSTEM QTC Calculated (Bezet) 411 ms MUSE SYSTEM Calculated P [place] 51 degrees MUSE SYSTEM Calculated R [place] 26 degrees MUSE SYSTEM Calculated T [place] 24 degrees MUSE SYSTEM INTERPRETATION Normal sinus rhythm Normal ECG When compared with ECG of 23-NOV-2016 07:16, No significant change was found I personally reviewed the tracing and edited the fellows interpretation Confirmed by fellow MD Kalin, Nessa Lee ([id number]) on 11/24/2016 8:23:27 AM Confirmed by MD Margoth, Rajni ([id number]) on 11/24/2016 6:22:34 PM MUSE SYSTEM 11/24/2016 7:20 AM EDT 11/24/2016 6:22 PM EDT Roque Sanches MD ECG ORDERABLES Performing Organization Address [facility] Co de Phone Number MUSE SYSTEM * (ABNORMAL) Differential, Automated (11/24/2016 6:20 AM EDT) Neutrophil % 54.5 % [facility] Neutrophil Absolute 4.85 1.70 - 6.10 x10(3)/[facility] Lymph % 31.5 % [facility] Lymphocytes Abs 2.8 0.9 - 3.2 x10(3)/[facility] Monocyte % 8.1 % [facility] Monocyte Abs 0.7 0.3 - 0.9 x10(3)/[facility] Eos % 4.4 % [facility] Eosinophils Abs 0.4 0.0 - 0.4 x10(3)/[facility] Basophil % 0.9 % [facility] Baso Absolute 0.1 0.0 - 0.1 x10(3)/[facility] Immature Gran % 0.60 % [facility] Comment: Immature granulocytes(IG's)percentage and absolute count will include metamyelocytes, myelocytes, and promyelocytes. Blood smears from CBCs yielding IG's will be scanned manually for concordance. If this scan disagrees with the automated IG or if promyelocytes are noted, a manual differential will be performed. Immature Gran Absolute 0.05(H) 0.00 - 0.04 x10(3)/[facility] Blood specimen (specimen) 11/24/2016 6:20 AM EDT 11/24/2016 6:34 AM EDT Narrative Resulting Agency Comment Spec In Lab Drew Pepe MD HEMATOLOGY ORDERABLE S [facility] [place] [address] * (ABNORMAL) Hemogram (11/24/2016 6:20 AM EDT) White Blood Cell 8.9 4.0 - 9.5 x10(3)/[facility] Red Blood Cell 4.93 4.58 - 5.54 x10(6)/[facility] Hemoglobin 14.7 13.7 - 16.5 gm/dL [facility] Hematocrit 43.2 40.5 - 48.5 % [facility] Mean Cell Volume 87.6 82.9 - 93.1 fL [facility] Mean Cell Hemoglobin 29.8 27.5 - 32.1 pg [facility] Mean Cell Hemoglobin Concentration 34.0 32.0 - 35.7 gm/dL [facility] Platelet 203 145 - 357 x10(3)/mc L [facility] RDW Standard Deviation 44.3 36.0 - 45.0 fL [facility] RDW coefficient of variation 13.9(H) 11.4 - 13.8 % [facility] Mean Platelet Volume 11.0 7.6 - 12.9 fL [facility] NRBC% auto 0.0 % [facility] NRBC Absolute 0.000 0.000 - 0.000 x10(3)/mc L [facility] Blood specimen (specimen) 11/24/2016 6:20 AM EDT 11/24/2016 6:34 AM EDT Narrative Resulting Agency Comment Spec In Lab Drew Pepe MD HEMATOLOGY ORDERABLE S [facility] [place] [address] * (ABNORMAL) APTT (11/24/2016 6:20 AM EDT) [facility] Partial Thromboplastin Time 110(H) 25 - 35 sec [facility] Comment: The recommended therapeutic range for full dose, unfractionated heparin [place] [facility] [place] 80 ? 114 seconds. The use of the anti-Xa (heparin) level rather than the PTT is recommended for monitoring anticoagulation intensity in critically ill patients receiving unfractionated heparin by continuous IV infusion. Blood specimen (specimen) 11/24/2016 6:20 AM EDT 11/24/2016 6:34 AM EDT Narrative Resulting Agency Comment Spec In Lab Drew Pepe MD HEMATOLOGY ORDERABLE S Performing Organization Address [facility] Co de Phone Number [facility] [place] [address] * (ABNORMAL) APTT (11/23/2016 11:27 PM EDT) Partial Thromboplastin Time 130(H) 25 - 35 sec [facility] Comment: The recommended therapeutic range for full dose, unfractionated heparin [place] [facility] [place] 80 ? 114 seconds. The use of the anti-Xa (heparin) level rather than the PTT is recommended for monitoring anticoagulation intensity in critically ill patients receiving unfractionated heparin by continuous IV infusion. Blood specimen (specimen) 11/23/2016 11:27 PM EDT 11/23/2016 11:30 PM EDT Narrative Resulting Agency Comment Spec In Lab Drew Pepe MD HEMATOLOGY ORDERABLE S Performing Organization Address [facility] Co de Phone Number [facility] [place] [address] * POCT Glucose (11/23/2016 7:36 PM EDT) Glucose, POC 131 65 - 199 mg/dL [facility] Comment: Supplemental ranges: <140 mg/dL before meals <180 mg/dL all other times of the day Blood specimen (specimen) 11/23/2016 7:36 PM EDT 11/23/2016 7:36 PM EDT Roque Sanches MD POINT OF CARE TEST O RDERABLES Performing Organization Address [facility]/ZIP Co de Phone Number [facility] [place] [address] * POCT Glucose (11/23/2016 5:20 PM EDT) Glucose, POC 107 65 - 199 mg/dL [facility] Comment: Supplemental ranges: <140 mg/dL before meals <180 mg/dL all other times of the day Blood specimen (specimen) 11/23/2016 5:20 PM EDT 11/23/2016 5:20 PM EDT Roque Sanches MD POINT OF CARE TEST O EVITA Performing Organization Address [facility] Co de Phone Number [facility] [place] [address] * (ABNORMAL) APTT (11/23/2016 12:39 PM EDT) Partial Thromboplastin Time 68(H) 25 - 35 sec [facility] Comment: The recommended therapeutic range for full dose, unfractionated heparin [place] [facility] [place] 80 ? 114 seconds. The use of the anti-Xa (heparin) level rather than the PTT is recommended for monitoring anticoagulation intensity in critically ill patients receiving unfractionated heparin by continuous IV infusion. Blood specimen (specimen) 11/23/2016 12:39 PM EDT 11/23/2016 12:51 PM EDT Narrative Resulting Agency Comment Spec In Lab Roque Sanches MD HEMATOLOGY ORDERABLE S Performing Organization Address [facility] de Phone Number [facility] [place] [address] * POCT Glucose (11/23/2016 11:47 AM EDT) Glucose, POC 116 65 - 199 mg/dL [facility] Comment: Supplemental ranges: <140 mg/dL before meals <180 mg/dL all other times of the day Blood specimen (specimen) 11/23/2016 11:47 AM EDT 11/23/2016 11:47 AM EDT Roque Sanches MD POINT OF CARE TEST O EVITA Performing Organization Address [facility] Co de Phone Number [facility] [place] [address] * POCT Glucose (11/23/2016 7:36 AM EDT) Glucose, POC 122 65 - 199 mg/dL [facility] Comment: Supplemental ranges: <140 mg/dL before meals <180 mg/dL all other times of the day Blood specimen (specimen) 11/23/2016 7:36 AM EDT 11/23/2016 7:36 AM EDT Roque Sanches MD POINT OF CARE TEST O RDERABLES Performing Organization Address [facility] de Phone Number [facility] [place] [address] * EKG 12 Lead (11/23/2016 7:16 AM EDT) Ventricular rate 72 BPM MUSE SYSTEM Atrial Rate 72 BPM MUSE SYSTEM P-R Interval 158 ms MUSE SYSTEM QRS Duration 90 ms MUSE SYSTEM Q-T Interval 382 ms MUSE SYSTEM QTC Calculated (Bezet) 418 ms MUSE SYSTEM Calculated P [place] 47 degrees MUSE SYSTEM Calculated R [place] 28 degrees MUSE SYSTEM Calculated T [place] 32 degrees MUSE SYSTEM INTERPRETATION Normal sinus rhythm Normal ECG When compared with ECG of 22-NOV-2016 07:12, No significant change was found Confirmed by MD ANIVAL, DEBORAH ([id number]) on 11/23/2016 1:58:05 PM MUSE SYSTEM 11/23/2016 7:16 AM EDT 11/23/2016 1:58 PM EDT Roque Sanches MD ECG ORDERABLES Performing Organization Address [facility] de Phone Number MUSE SYSTEM * (ABNORMAL) BMP w/fasting Glucose (11/23/2016 6:24 AM EDT) Glucose Fasting 143(H) 65 - 99 mg/dL [facility] Comment: ?Fasting* Glucose Interpretive [...] of Diabetes Mellitus, Position Statement from the [place] [employer]. ??Diabetes Care, Volume 33, Supplement 1, Aug 2009 Blood Urea Nitrogen 10 10 - 20 mg/dL [facility] Creatinine 0.98 0.80 - 1.50 mg/dL [facility] Comment: Please note that the pediatric reference intervals supplied above were not validated [place] [facility] Results from pediatric patients should be interpreted in conjunction to the patient's age, height and muscle mass. Sodium 142 135 - 145 mmol/L [facility] Potassium 3.9 3.5 - 5.0 mmol/L [facility] Comment: Please note: ??Patients with WBC >100,000 may have falsely elevated Potassium levels. ??For accurate Potassium quantification in these patients send serum separator tube (gold top) for subsequent determinations. ??Contact the Clinical Chemistry Laboratory if there are any questions. Chloride 106 98 - 107 mmol/L [facility] Carbon Dioxide 20(L) 22 - 31 mmol/L [facility] Anion Gap 16(H) 5 - 15 mmol/L [facility] Calcium 9.6 8.5 - 10.5 mg/dL [facility] Est Glomerular Filtration Rate >60 >=60 [facility] Comment: This estimated GFR (eGFR) value was calculated using the MDRD equation which has been validated on patients between the ages of 18 and 70. The MDRD should not be used to assess kidney function in patients < 18 years of age or in patients with extremes of body mass, or in patients with acute kidney failure. This value should be multiplied by 1.2 for patients. For further information please copy and paste the following links into your internet browser. http://ProZyme.AppNeta/DHnkdep http://ProZyme.AppNeta/DHMCnkf Blood specimen (specimen) 11/23/2016 6:24 AM EDT 11/23/2016 6:32 AM EDT Narrative Resulting Agency Comment Spec In Lab Roque Sanches MD CHEMISTRY ORDERABLES Performing Organization Address City/[facility]/ZIP Co de Phone Number [facility] [place] [address] * (ABNORMAL) APTT (11/23/2016 6:24 AM EDT) [facility] Partial Thromboplastin Time 103(H) 25 - 35 sec [facility] Comment: The recommended therapeutic range for full dose, unfractionated heparin [place] [facility] [place] 80 ? 114 seconds. The use of the anti-Xa (heparin) level rather than the PTT is recommended for monitoring anticoagulation intensity in critically ill patients receiving unfractionated heparin by continuous IV infusion. Blood specimen (specimen) 11/23/2016 6:24 AM EDT 11/23/2016 6:32 AM EDT Narrative Resulting Agency Comment Spec In Lab Drew Pepe MD HEMATOLOGY ORDERABLE S Performing Organization Address [facility]/ZIP Co de Phone Number [facility] [place] [address] * Differential, Automated (11/23/2016 6:24 AM EDT) [facility] Neutrophil % 58.2 % [facility] Neutrophil Absolute 4.63 1.70 - 6.10 x10(3)/[facility] Lymph % 29.0 % [facility] Lymphocytes Abs 2.3 0.9 - 3.2 x10(3)/[facility] Monocyte % 7.3 % [facility] Monocyte Abs 0.6 0.3 - 0.9 x10(3)/[facility] Eos % 4.1 % [facility] Eosinophils Abs 0.3 0.0 - 0.4 x10(3)/[facility] Basophil % 1.0 % [facility] Baso Absolute 0.1 0.0 - 0.1 x10(3)/[facility] Immature Gran % 0.40 % [facility] Comment: Immature granulocytes(IG's)percentage and absolute count will include metamyelocytes, myelocytes, and promyelocytes. Blood smears from CBCs yielding IG's will be scanned manually for concordance. If this scan disagrees with the automated IG or if promyelocytes are noted, a manual differential will be performed. Immature Gran Absolute 0.03 0.00 - 0.04 x10(3)/mcL [facility] Blood specimen (specimen) 11/23/2016 6:24 AM EDT 11/23/2016 6:32 AM EDT Narrative Resulting Agency Comment Spec In Lab Drew Pepe MD HEMATOLOGY ORDERABLE S [facility] [place] [address] * (ABNORMAL) Hemogram (11/23/2016 6:24 AM EDT) White Blood Cell 8.0 4.0 - 9.5 x10(3)/mc L [facility] Red Blood Cell 5.00 4.58 - 5.54 x10(6)/mc L [facility] Hemoglobin 14.5 13.7 - 16.5 gm/dL [facility] Hematocrit 43.1 40.5 - 48.5 % [facility] Mean Cell Volume 86.2 82.9 - 93.1 fL [facility] Mean Cell Hemoglobin 29.0 27.5 - 32.1 pg [facility] Mean Cell Hemoglobin Concentration 33.6 32.0 - 35.7 gm/dL [facility] Platelet 207 145 - 357 x10(3)/mc L [facility] RDW Standard Deviation 44.5 36.0 - 45.0 [facility] RDW coefficient of variation 14.0(H) 11.4 - 13.8 % [facility] Mean Platelet Volume 10.4 7.6 - 12.9 fL [facility] NRBC% auto 0.0 % [facility] NRBC Absolute 0.000 0.000 - 0.000 x10(3)/mc L [facility] Blood specimen (specimen) 11/23/2016 6:24 AM EDT 11/23/2016 6:32 AM EDT Narrative Resulting Agency Comment Spec In Lab Drew Pepe MD HEMATOLOGY ORDERABLE S Performing Organization Address [facility]/ZIP Co de Phone Number [facility] [place] [address] * (ABNORMAL) APTT (11/23/2016 12:03 AM EDT) Partial Thromboplastin Time 116(H) 25 - 35 sec [facility] Comment: The recommended therapeutic range for full dose, unfractionated heparin [place] [facility] is 80 ? 114 seconds. The use of the anti-Xa (heparin) level rather than the PTT is recommended for monitoring anticoagulation intensity in critically ill patients receiving unfractionated heparin by continuous IV infusion. Blood specimen (specimen) 11/23/2016 12:03 AM EDT 11/23/2016 12:07 AM EDT Narrative Resulting Agency Comment Spec In Lab Drew Pepe MD HEMATOLOGY ORDERABLE S Performing Organization Address [facility] Co de Phone Number [facility] [place] [address] * POCT Glucose (11/22/2016 7:45 PM EDT) Glucose, POC 102 65 - 199 mg/dL [facility] Comment: Supplemental ranges: <140 mg/dL before meals <180 mg/dL all other times of the day Blood specimen (specimen) 11/22/2016 7:45 PM EDT 11/22/2016 7:45 PM EDT Roque Sanches MD POINT OF CARE TEST O RDERABLES Performing Organization Address [facility] Co de Phone Number [facility] [place] [address] * Cardiac Enzymes (11/22/2016 5:11 PM EDT) [facility] Troponin-T <0.03 <=0.03 ng/mL [facility] Comment: 0.03 ng/mL: Represents the 99th percentile upper reference limit for normals. >0.03 ng/mL: Elevated cardiac troponin T level indicative of myocardial damage. Diagnosis of acute, evolving or recent NV requires a typical rise and gradual fall of cTnT with at least ONE of the following: a) Ischemic symptoms b) Development of pathologic Q waves on the ECG c) ECG changes indicative of eschemia (S-T segment elevation/depression) d) Coronary artery intervention Serial bloods should be obtained for testing on admission, at 6 to 9 hrs and again at 12 to 24 hrs if earlier samples are negative and the clinical index of suspicion is high. Reference: [Myocardial infarction redefined? a consensus document of the [employer] Society of Cardiology/[place] [employer] Committee for the redefinition of myocardial infarction. ??Journal of the [place] [employer] 2000; 36: 959-969] Creatine Kinase 46 0 - 200 unit/L [facility] Blood specimen (specimen) 11/22/2016 5:11 PM EDT 11/22/2016 5:15 PM EDT Narrative Resulting Agency Comment Spec In Lab Roque Sanches MD CHEMISTRY ORDERABLES [facility] [place] [address] * (ABNORMAL) APTT (11/22/2016 5:11 PM EDT) [facility] Partial Thromboplastin Time 76(H) 25 - 35 sec [facility] Comment: The recommended therapeutic range for full dose, unfractionated heparin [place] [facility] is 80 ? 114 seconds. The use of the anti-Xa (heparin) level rather than the PTT is recommended for monitoring anticoagulation intensity in critically ill patients receiving unfractionated heparin by continuous IV infusion. Blood specimen (specimen) 11/22/2016 5:11 PM EDT 11/22/2016 5:15 PM EDT Narrative Resulting Agency Comment Spec In Lab Drew Pepe MD HEMATOLOGY ORDERABLE S Performing Organization Address [facility] Co de Phone Number [facility] [place] [address] * POCT Glucose (11/22/2016 4:50 PM EDT) Glucose, POC 100 65 - 199 mg/dL [facility] Comment: Supplemental ranges: <140 mg/dL before meals <180 mg/dL all other times of the day Blood specimen (specimen) 11/22/2016 4:50 PM EDT 11/22/2016 4:50 PM EDT Roque Sanches MD POINT OF CARE TEST O RDERABLES Performing Organization Address [facility] Co de Phone Number [facility] [place] [address] * ECHO COMPLETE W CONTRAST (11/22/2016 12:59 PM EDT) EF 60 HEART[facility] SYSTEM Anatomical Region Laterality Modality Other 11/22/2016 Narrative 11/22/2016 1:38 PM EDT Procedure: ?Transthoracic Echocardiogram Patient: ?COELHOCOLE DOHERTY A ? (Age): 1965(51y) Med Rec#: ? [id number] ?Sex: ?M ? [place] ? [facility] [place]Ht / Wt: ??178(cm)/95(kg) Pt. Loc: ?Adult Floor ? BSA: ?2.13 Study Date: ?? 11/22/2016 ?Pt. Type: Inpatient Tape: ? Referring: Roque Sanches ([id number]) Reading: Roque Sanches ([id number]) Manager Of Medical: Jorge A Street Diagnosis: *ICD-10-PCS Unstable angina (I20.0) CPT Codes: *Echo Full (37027) *Spectral Doppler (80802) *Color Doppler (46032) *Optison ([id number]) Rhythm: ? Sinus BP: ? 113/70 SUMMARY: 1. The left ventricular chamber size is normal. ??Left ventricular wall thickness is normal. ??There is normal global left ventricular systolic function. ??The quantitative left ventricular ejection fraction by biplane Mcleod's method is 60%. ??There are left ventricular segmental wall motion abnormalities present, as shown in the diagram below. 2. The right ventricle is normal in size. ??Right ventricular global systolic function is normal. Findings ? : Study Quality: ? Technically limited Left Ventricle: ? The left ventricular chamber size is normal. ?Left ventricular wall thickness is normal. ?No ventricular septal defect is visualized. ?There is normal global left ventricular systolic function. ?The quantitative left ventricular ejection fraction by biplane Mcleod's method is 60%. ?There are left ventricular segmental wall motion abnormalities present, as shown in the diagram below. ?Left ventricular diastolic function is normal. ?The ??basal anterolateral, mid anterolateral, and ??mid inferolateral wall segments are hypokinetic (score 2). ?Overall wallmotion score index is ??1.19 Left Atrium: ? The left atrium is probably normal in size. ?No atrial septal defect is visualized. Right Ventricle: ? The right ventricle is normal in size. ?Right ventricular global systolic function is normal. ?Pulmonary artery hypertension could not be assessed due to inadequate tricuspid regurgitation jet. Right Atrium: ? The right atrium is normal in size. Aortic Valve: ? The aortic valve is not well visualized. ?There is no evidence of aortic valve stenosis. ?There is no evidence of aortic regurgitation. Mitral Valve: ? The mitral valve leaflets appear normal. ?There is trace mitral regurgitation present. Tricuspid Valve: ? The tricuspid valve is probably normal. ?There is trace tricuspid regurgitation present. Pulmonic Valve: ? The pulmonic valve is not well visualized. Pericardium: ? There is no pericardial effusion. ?A pericardial fat pad is visualized. Aorta: ? The aortic root is normal in size. ?The ascending aorta was not well visualized. ?The aortic arch was not well visualized. Pulmonary Artery: ? The main pulmonary artery is not well visualized. Venous: ? There is a greater than 50% respiratory change in the inferior vena cava dimension. Misc: ? Two-dimensional echo, spectral Doppler and color Doppler performed. ?Optison contrast (one 3 ml vial) was used to enhance endocardial definition. Excess contrast was discarded. Chambers 2D ?Value ?Units (Range) ? IVSd (2D) ? 1.1 ?cm ? LVPWd (2D) ?0.9 ?cm ? IVS:LVPW ratio (2D) 1.2 ?ratio ? LVIDd (2D) ?4.6 ?cm ? LVIDs (2D) ?3.1 ?cm ? LVIDd (2D) index ?2.2 ?cm/m2 ? LVIDs (2D) index ?1.4 ?cm/m2 ? LV FS (2D) ?33 ? % ? EF Teichholz (2D) ?? 62 ? % ? Ao root diameter (2D3.2 ?cm (2.1 - 3.6) ? Volumes/Mass ?Value ?Units (Range) ? LA Area 4 CH ?22 ? cm2 (<21) ? RA AREA 4CH ? 14 ? cm2 ? LA ESV SP 4CH (MOD) 56.8 ? ml ? LA ESV SP 2CH (MOD) 76.3 ? ml ? LA ESV BP (MOD) ? 70.5 ? ml ? LA ESV BP (MOD) inde33.1 ? ml/m2 ? LV ESV SP 4CH (MOD) 46.8 ? ml ? LV ESV SP 2CH (MOD) 53.5 ? ml ? LV EDV BP ? 128 ?ml ? LV ESV BP ? 50.8 ? ml ? BP EF (MOD) ? 60 ? % ? LV mass (2D) ?162.3 ?g ? LV mass (2D) index ??76.2 ? g/m2 ? Diastolic/Systolic Function ?Value ?Units (Range) ? MV E-wave Vmax ?0.5 ?m/sec ? MV deceleration [id number] ?msec ? MV A-wave Vmax ?0.4 ?m/sec ? MV E:A ratio ?1.2 ?ratio ? LV septal e' Vmax ?? 0.1 ?m/sec ? LV lateral e' Vmax ??0.1 ?m/sec ? LV average e' Vmax ??0.1 ?m/sec ? LV E:e' septal ratio6.4 ?ratio ? LV E:e' lateral rati4.3 ?ratio ? LV average E:e' rati5.1 ?ratio ? Tricuspid Valve ?Value ?Units (Range) ? TAPSE ? 1.9 ?cm ? Measurement Trending Name ? 11/22/2016 ? 06/14/2012 ?06/04/2012 ? 01/17/2010 ? LV EDV BP ?128 LVIDd (2D) ? 4.59 LV ESV BP ?50.8 LA ESV BP (MOD) ?70.5 LVIDs (2D) ? 3.07 Wall Motion: Segment Name ?Rest ? Base-Anteroseptal ?? Normal ? Base-Anterior ? Normal ? Base-Anterolateral ??Hypokinetic ? Base-Posterolateral Normal ? Base-Inferior ? Normal ? Base-Inferoseptal ?? Normal ? Mid-Anteroseptal ?Normal ? Mid-Anterior ?Normal ? Mid-Anterolateral ?? Hypokinetic ? Mid-Posterolateral ??Hypokinetic ? Mid-Inferior ?Normal ? Mid-Inferoseptal ?Normal ? [place]-Septal ? Normal ? [place]-Anterior ? Normal ? [place]-Lateral ?Normal ? [place]-Inferior ? Normal ? [place]-Tip ?Normal ? This report has been electronically signed by: Roque Sanches M.D. ? 11/22/2016 13:38:29 Images reviewed and interpretation verified [facility] Procedure Note Roque Sanches MD - 11/22/2016 Procedure: Transthoracic Echocardiogram Patient: LAQUITA HARRIS(Age): 1965(51y) Med Rec#: [id number] Sex: M [place] [facility] [place] Wt: 178(cm)/95(kg) Pt. Loc: Adult Floor BSA: 2.13 Study Date: 11/22/2016 Pt. Type: Inpatient Tape: Referring: Roque Sanches ([id number]) Reading: Roque Sanches () Manager Of Medical: Jorge A Street Diagnosis: *ICD-10-PCS Unstable angina (I20.0) CPT Codes: *Echo Full (46911) *Spectral Doppler (92440) *Color Doppler (39073) *Optison (00122SD) Rhythm: Sinus BP: 113/70 SUMMARY: 1. The left ventricular chamber size [...] Right ventricular global systolic function is normal. Findings : Study Quality: Technically limited Left Ventricle: The left ventricular chamber size is normal. Left ventricular wall thickness is normal. No ventricular septal defect is visualized. There is normal global left ventricular systolic function. The quantitative left ventricular ejection fraction by biplane Mcleod's method is 60%. There are left ventricular segmental wall motion abnormalities present, as shown in the diagram below. Left ventricular diastolic function is normal. The basal anterolateral, mid anterolateral, and mid inferolateral wall segments are hypokinetic (score 2). Overall wallmotion score index is 1.19 Left Atrium: The left atrium is probably normal in size. No atrial septal defect is visualized. Right Ventricle: The right ventricle is normal in size. Right ventricular global systolic function is normal. Pulmonary artery hypertension could not be assessed due to inadequate tricuspid regurgitation jet. Right Atrium: The right atrium is normal in size. Aortic Valve: The aortic valve is not well visualized. There is no evidence of aortic valve stenosis. There is no evidence of aortic regurgitation. Mitral Valve: The mitral valve leaflets appear normal. There is trace mitral regurgitation present. Tricuspid Valve: The tricuspid valve is probably normal. There is trace tricuspid regurgitation present. Pulmonic Valve: The pulmonic valve is not well visualized. Pericardium: There is no pericardial effusion. A pericardial fat pad is visualized. Aorta: The aortic root is normal in size. The ascending aorta was not well visualized. The aortic arch was not well visualized. Pulmonary Artery: The main pulmonary artery is not well visualized. Venous: There is a greater than 50% respiratory change in the inferior vena cava dimension. Misc: Two-dimensional echo, spectral Doppler and color Doppler performed. Optison contrast (one 3 ml vial) was used to enhance endocardial definition. Excess contrast was discarded. Chambers 2D Value Units (Range) IVSd (2D) 1.1 cm LVPWd (2D) 0.9 cm IVS:LVPW ratio (2D) 1.2 ratio LVIDd (2D) 4.6 cm LVIDs (2D) 3.1 cm LVIDd (2D) index 2.2 cm/m2 LVIDs (2D) index 1.4 cm/m2 LV FS (2D) 33 % EF Teichholz (2D) 62 % Ao root diameter (2D3.2 cm (2.1 - 3.6) Volumes/Mass Value Units (Range) LA Area 4 CH 22 cm2 (<21) RA AREA 4CH 14 cm2 LA ESV SP 4CH (MOD) 56.8 ml LA ESV SP 2CH (MOD) 76.3 ml LA ESV BP (MOD) 70.5 ml LA ESV BP (MOD) inde33.1 ml/m2 LV ESV SP 4CH (MOD) 46.8 ml LV ESV SP 2CH (MOD) 53.5 ml LV EDV BP 128 ml LV ESV BP 50.8 ml BP EF (MOD) 60 % LV mass (2D) 162.3 g LV mass (2D) index 76.2 g/m2 Diastolic/Systolic Function Value Units (Range) MV E-wave Vmax 0.5 m/sec MV deceleration [id number] msec MV A-wave Vmax 0.4 m/sec MV E:A ratio 1.2 ratio LV septal e' Vmax 0.1 m/sec LV lateral e' Vmax 0.1 m/sec LV average e' Vmax 0.1 m/sec LV E:e' septal ratio6.4 ratio LV E:e' lateral rati4.3 ratio LV average E:e' rati5.1 ratio Tricuspid Valve Value Units (Range) TAPSE 1.9 cm Measurement Trending Name 11/22/2016 06/14/2012 06/04/2012 01/17/2010 LV EDV BP 128 LVIDd (2D) 4.59 LV ESV BP 50.8 LA ESV BP (MOD) 70.5 LVIDs (2D) 3.07 Wall Motion: Segment Name Rest Base-Anteroseptal Normal Base-Anterior Normal Base-Anterolateral Hypokinetic Base-Posterolateral Normal Base-Inferior Normal Base-Inferoseptal Normal Mid-Anteroseptal Normal Mid-Anterior Normal Mid-Anterolateral Hypokinetic Mid-Posterolateral Hypokinetic Mid-Inferior Normal Mid-Inferoseptal Normal [place]-Septal Normal [place]-Anterior Normal [place]-Lateral Normal [place]-Inferior Normal [place]-Tip Normal This report has been electronically signed by: Roque Sanches M.D. 11/22/2016 13:38:29 Images reviewed and interpretation verified [facility] Drew Pepe MD ECHO ORDERABLES * POCT Glucose (11/22/2016 12:11 PM EDT) Glucose, POC 94 65 - 199 mg/dL [facility] Comment: Supplemental ranges: <140 mg/dL before meals <180 mg/dL all other times of the day Blood specimen (specimen) 11/22/2016 12:11 PM EDT 11/22/2016 12:11 PM EDT Roque Sanches MD POINT OF CARE TEST O RDERABLES [facility] [place] [address] * Potassium (11/22/2016 10:06 AM EDT) Potassium 3.8 3.5 - 5.0 mmol/L [facility] Comment: Please note: ??Patients with WBC >100,000 may have falsely elevated Potassium levels. ??For accurate Potassium quantification in these patients send serum separator tube (gold top) for subsequent determinations. ??Contact the Clinical Chemistry Laboratory if there are any questions. Blood specimen (specimen) Venous Draw / Unknown 11/22/2016 10:06 AM EDT 11/22/2016 10:19 AM EDT Narrative Resulting Agency Comment Spec In Lab Drew Pepe MD CHEMISTRY ORDERABLES [facility] [place] [address] * Cardiac Enzymes (11/22/2016 10:06 AM EDT) Pathologist [facility] Troponin-T <0.03 <=0.03 ng/mL [facility] Comment: 0.03 ng/mL: Represents the 99th percentile upper reference limit for normals. >0.03 ng/mL: Elevated cardiac troponin T level indicative of myocardial damage. Diagnosis of acute, evolving or recent NV requires a typical rise and gradual fall of cTnT with at least ONE of the following: a) Ischemic symptoms b) Development of pathologic Q waves on the ECG c) ECG changes indicative of eschemia (S-T segment elevation/depression) d) Coronary artery intervention Serial bloods should be obtained for testing on admission, at 6 to 9 hrs and again at 12 to 24 hrs if earlier samples are negative and the clinical index of suspicion is high. Reference: [Myocardial infarction redefined? a consensus document of the Joint Society of Cardiology/[place] College [employer] Committee for the redefinition of myocardial infarction. ??Journal of the [place] College [employer]iology 2000; 36: 959-969] Creatine Kinase 48 0 - 200 unit/L [facility] Blood specimen (specimen) 11/22/2016 10:06 AM EDT 11/22/2016 10:16 AM EDT Narrative Resulting Agency Comment Spec In Lab Drew Pepe MD CHEMISTRY ORDERABLES Performing Organization Address City/[facility]/ZIP Co de Phone Number [facility] [place] [address] * (ABNORMAL) APTT (11/22/2016 10:06 AM EDT) [facility] Signature Partial Thromboplastin Time 104(H) 25 - 35 sec [facility] Comment: The recommended therapeutic range for full dose, unfractionated heparin [place] [facility] 80 ? 114 seconds. The use of the anti-Xa (heparin) level rather than the PTT is recommended for monitoring anticoagulation intensity in critically ill patients receiving unfractionated heparin by continuous IV infusion. Blood specimen (specimen) 11/22/2016 10:06 AM EDT 11/22/2016 10:16 AM EDT Narrative Resulting Agency Comment Spec In Lab Roque Sanches MD HEMATOLOGY ORDERABLE S Performing Organization Address [facility]/ZIP Co de Phone Number [facility] [place] [address] * XR Chest PA & Lateral (Generic) (11/22/2016 9:40 AM EDT) Anatomical Region Laterality Modality Chest N/A Digital Radiogra phy Impressions 11/22/2016 9:51 AM EDT No acute pulmonary disease is identified. Narrative 11/22/2016 9:51 AM EDT EXAMINATION: XR CHEST PA AND LATERAL (GENERIC) CLINICAL HISTORY: chest pain TECHNIQUE: PA standing, lateral chest. COMPARISON: 06/14/2012. FINDINGS: Multiple overlying leads. The airways are midline. The cardiomediastinal silhouette is normal in size. The pulmonary vascularity is within normal limits. A stable cardiac stent is noted. Lung parenchyma without nodularity, consolidation, or effusion. Pleural margins are sharp. Procedure Note Christos Vogel MD - 11/22/2016 EXAMINATION: XR CHEST PA AND LATERAL (GENERIC) CLINICAL HISTORY: chest pain TECHNIQUE: PA standing, lateral chest. COMPARISON: 06/14/2012. FINDINGS: Multiple overlying leads. The airways are midline. The cardiomediastinal silhouette is normal in size. The pulmonary vascularity is within normallimits. A stable cardiac stent is noted. Lung parenchyma without nodularity, consolidation, or effusion. Pleuralmargins are sharp. IMPRESSION No acute pulmonary disease is identified. Drew Pepe MD IMG DX ORDERABLES * POCT Glucose (11/22/2016 7:44 AM EDT) Glucose, POC 135 65 - 199 mg/dL [facility] Comment: Supplemental ranges: <140 mg/dL before meals <180 mg/dL all other times of the day Blood specimen (specimen) 11/22/2016 7:44 AM EDT 11/22/2016 7:44 AM EDT Roque Sanches MD POINT OF CARE TEST O RDERABLES Performing Organization Address [facility] Co de Phone Number [facility] [place] [address] * EKG 12 Lead (11/22/2016 7:12 AM EDT) Ventricular rate 74 BPM MUSE SYSTEM Atrial Rate 74 BPM MUSE SYSTEM P-R Interval 146 ms MUSE SYSTEM QRS Duration 92 ms MUSE SYSTEM Q-T Interval 382 ms MUSE SYSTEM QTC Calculated (Bezet) 424 ms MUSE SYSTEM Calculated P [place] 34 degrees MUSE SYSTEM Calculated R [place] 26 degrees MUSE SYSTEM Calculated T [place] 27 degrees MUSE SYSTEM INTERPRETATION Normal sinus rhythm Normal ECG When compared with ECG of 21-NOV-2016 20:34, (unconfirmed) No significant change was found Confirmed by MD Anton, Asif ([id number]) on 11/22/2016 10:51:21 AM MUSE SYSTEM 11/22/2016 7:12 AM EDT 11/22/2016 10:51 AM EDT Roque Sanches MD ECG ORDERABLES Performing Organization Address City/[facility]/ZIP Co de Phone Number MUSE SYSTEM * (ABNORMAL) Lipid Panel (11/22/2016 3:58 AM EDT) Cholesterol, Total 125 <=239 mg/dL [facility] Triglyceride 171 <=199 mg/dL [facility] HDL Cholesterol 39(L) >=40 mg/dL [facility] LDL Cholesterol 52 <=190 mg/dL [facility] Cholesterol/HDL Ratio 3.2 ratio [facility] Lipid Interpretation See Note [facility] Comment: Lipid management should be guided by a patient? s ASCVD risk, goals and preferences. ACC/AHA Guidelines recommend high intensity statin if clinical ASCVD or LDL greater than or equal to 190 mg/dL. http://circ.ahajournals.org/content/early/.cir.2369737228.56412.7a Adults aged 40-75 with LDL 70-189 mg/dL should have their 10 year ASCVD risk estimated with the ACC/AHA ASCVD risk steel estimator http://tools.acc.org/LJEVT-Psgn-Dlqipkpsa/ Statin should be discussed if risk greater [...] of ASCVD risk reduction. Blood specimen (specimen) Venous Draw / Unknown 11/22/2016 3:58 AM EDT 11/22/2016 4:13 AM EDT Narrative Resulting Agency Comment Spec In Lab Roque Sanches MD CHEMISTRY ORDERABLES [facility] [place] [address] * Cardiac Enzymes (11/22/2016 3:58 AM EDT) Troponin-T <0.03 <=0.03 ng/mL [facility] Comment: 0.03 ng/mL: Represents the 99th percentile upper reference limit for normals. >0.03 ng/mL: Elevated cardiac troponin T level indicative of myocardial damage. Diagnosis of acute, evolving or recent NV requires a typical rise and gradual fall of cTnT with at least ONE of the following: a) Ischemic symptoms b) Development of pathologic Q waves on the ECG c) ECG changes indicative of eschemia (S-T segment elevation/depression) d) Coronary artery intervention Serial bloods should be obtained for testing on admission, at 6 to 9 hrs and again at 12 to 24 hrs if earlier samples are negative and the clinical index of suspicion is high. Reference: [Myocardial infarction redefined? a consensus document of the Joint Society of Cardiology/[place] College [employer] Cardiology Committee for the redefinition of myocardial infarction. ??Journal of the [place] College of Cardiology 2000; 36: 959-969] Creatine Kinase 50 0 - 200 unit/L [facility] Blood specimen (specimen) Venous Draw / Unknown 11/22/2016 3:58 AM EDT 11/22/2016 4:13 AM EDT Narrative Resulting Agency Comment Spec In Lab Roque Sanches MD CHEMISTRY ORDERABLES Performing Organization Address City/State/[facility] Co de Phone Number [facility] [place] [phone] * Differential, Automated (11/22/2016 3:58 AM EDT) Neutrophil % 56.6 % [facility] Neutrophil Absolute 4.86 1.70 - 6.10 x10(3)/[facility] Lymph % 30.3 % [facility] Lymphocytes Abs 2.6 0.9 - 3.2 x10(3)/[facility] Monocyte % 7.7 % [facility] Monocyte Abs 0.7 0.3 - 0.9 x10(3)/[facility] Eos % 4.5 % [facility] Eosinophils Abs 0.4 0.0 - 0.4 x10(3)/[facility] Basophil % 0.6 % [facility] Baso Absolute 0.0 0.0 - 0.1 x10(3)/[facility] Immature Gran % 0.30 % [facility] Comment: Immature granulocytes(IG's)percentage and absolute count will include metamyelocytes, myelocytes, and promyelocytes. Blood smears from CBCs yielding IG's will be scanned manually for concordance. If this scan disagrees with the automated IG or if promyelocytes are noted, a manual differential will be performed. Immature Gran Absolute 0.03 0.00 - 0.04 x10(3)/mcL [facility] Blood specimen (specimen) 11/22/2016 3:58 AM EDT 11/22/2016 4:13 AM EDT Narrative Resulting Agency Comment Spec In Lab Roque Sanches MD HEMATOLOGY ORDERABLE S [facility] [place] [address] * (ABNORMAL) Hemogram (11/22/2016 3:58 AM EDT) White Blood Cell 8.6 4.0 - 9.5 x10(3)/mc L [facility] Red Blood Cell 4.80 4.58 - 5.54 x10(6)/mc L [facility] Hemoglobin 13.8 13.7 - 16.5 gm/dL [facility] Hematocrit 41.9 40.5 - 48.5 % [facility] Mean Cell Volume 87.3 82.9 - 93.1 fL [facility] Mean Cell Hemoglobin 28.8 27.5 - 32.1 pg [facility] Mean Cell Hemoglobin Concentration 32.9 32.0 - 35.7 gm/dL [facility] Platelet 219 145 - 357 x10(3)/mc L [facility] RDW Standard Deviation 44.7 36.0 - 45.0 fL [facility] RDW coefficient of variation 14.0(H) 11.4 - 13.8 % [facility] Mean Platelet Volume 10.9 7.6 - 12.9 fL [facility] NRBC% auto 0.0 % [facility] NRBC Absolute 0.000 0.000 - 0.000 x10(3)/mc L [facility] Blood specimen (specimen) 11/22/2016 3:58 AM EDT 11/22/2016 4:13 AM EDT Narrative Resulting Agency Comment Spec In Lab Roque Sanches MD HEMATOLOGY ORDERABLE S [facility] [place] [address] * (ABNORMAL) BMP w/fasting Glucose (11/22/2016 3:58 AM EDT) Glucose Fasting 127(H) 65 - 99 mg/dL [facility] Comment: ?Fasting* Glucose Interpretive [...] of Diabetes Mellitus, Position Statement from the [place] Diabetes Association. ??Diabetes Care, Volume 33, Supplement 1, Aug 2009 Blood Urea Nitrogen 10 10 - 20 mg/dL [facility] Creatinine 0.85 0.80 - 1.50 mg/dL [facility] Comment: Please note that the pediatric reference intervals supplied above were not validated [place] [facility] Results from pediatric patients should be interpreted in conjunction to the patient's age, height and muscle mass. Sodium 142 135 - 145 mmol/L [facility] Potassium 3.3(L) 3.5 - 5.0 mmol/L [facility] Comment: Please note: ??Patients with WBC >100,000 may have falsely elevated Potassium levels. ??For accurate Potassium quantification in these patients send serum separator tube (gold top) for subsequent determinations. ??Contact the Clinical Chemistry Laboratory if there are any questions. Chloride 106 98 - 107 mmol/L [facility] Carbon Dioxide 21(L) 22 - 31 mmol/L [facility] Anion Gap 15 5 - 15 mmol/L [facility] Calcium 8.8 8.5 - 10.5 mg/dL [facility] Est Glomerular Filtration Rate >60 >=60 [facility] Comment: This estimated GFR (eGFR) value was calculated using the MDRD equation which has been validated on patients between the ages of 18 and 70. The MDRD should not be used to assess kidney function in patients < 18 years of age or in patients with extremes of body mass, or in patients with acute kidney failure. This value should be multiplied by 1.2 for patients. For further information please copy and paste the following links into your internet browser. [email or web address] [email or web address] [email or web address] [place] Blood specimen (specimen) 11/22/2016 3:58 AM EDT 11/22/2016 4:13 AM EDT Narrative Resulting Agency Comment Spec In Lab Roque Sanches MD CHEMISTRY ORDERABLES [facility] [place] [address] * (ABNORMAL) APTT (11/22/2016 3:58 AM EDT) [facility] Partial Thromboplastin Time 44(H) 25 - 35 sec [facility] Comment: The recommended therapeutic range for full dose, unfractionated heparin [place] [facility] 80 ? 114 seconds. The use of the anti-Xa (heparin) level rather than the PTT is recommended for monitoring anticoagulation intensity in critically ill patients receiving unfractionated heparin by continuous IV infusion. Blood specimen (specimen) 11/22/2016 3:58 AM EDT 11/22/2016 4:13 AM EDT Narrative Resulting Agency Comment Spec In Lab Drew Pepe MD HEMATOLOGY ORDERABLE S Performing Organization Address [facility] Co de Phone Number [facility] [place] [address] * EKG 12 Lead (11/21/2016 8:34 PM EDT) Ventricular rate 72 BPM MUSE SYSTEM Atrial Rate 72 BPM MUSE SYSTEM P-R Interval 138 ms MUSE SYSTEM QRS Duration 86 ms MUSE SYSTEM Q-T Interval 382 ms MUSE SYSTEM QTC Calculated (Bezet) 418 ms MUSE SYSTEM Calculated P [place] -2 degrees MUSE SYSTEM Calculated R [place] 16 degrees MUSE SYSTEM Calculated T [place] 16 degrees MUSE SYSTEM INTERPRETATION Normal sinus rhythm Normal ECG When compared with ECG of 30-JUL-2013 08:41, No significant change was found Confirmed by MD Anton, Asif (57) on 11/22/2016 10:49:32 AM MUSE SYSTEM 11/21/2016 8:34 PM EDT 11/22/2016 10:49 AM EDT Drew Pepe MD ECG ORDERABLES Performing Organization Address [facility] Co de Phone Number MUSE SYSTEM * Hemoglobin A1c (11/21/2016 8:32 PM EDT) Hemoglobin A1c 5.6 4.3 - 5.6 % [facility] Comment: Reference Range: 4.3 - 5.6% 5.7 - 6.4% - Increased Risk of Developing Diabetes Mellitus >=6.5% - Consistent with diagnosis of Diabetes Mellitus In the absence of hyperglycemia (i.e. plasma glucose > 200 mg/dL) or classic symptoms of hyperglycemia a repeat measurement of HbA1c should be performed on a separate sample to confirm the diagnosis. Diagnosis and Classification of Diabetes Mellitus, Diabetes Care 2013; 36: Suppl. 1, A52-34 Estimated Average Glucose 114 mg/dL [facility] Comment: eAG equivalents for HbA1c percentages: HbA1c(%) ?eAG(mg/dL) 6.0 ?126 6.5 ?140 7.0 ?154 7.5 ?169 8.0 ?183 8.5 ?197 9.0 ?212 9.5 ?226 10.0 ? 240 Limitations: The eAG calculation has not been validated on women, individuals below 18 years old and above 70 years old, and individuals with hemoglobinopathies. Additional resources are available on the ADA website: http://ProZyme.AppNeta/DHMCadacalc Ashok PIMENTEL, Abdulkadir J, Jamie R, et al. ??Translating the A1C assay into estimated average glucose values. ??Diabetes Care 2008:31(8):6947-5251. Blood specimen (specimen) Venous Draw / Unknown 11/21/2016 8:32 PM EDT 11/22/2016 12:39 AM EDT Narrative Resulting Agency Comment Spec In Lab Drew Pepe MD CHEMISTRY ORDERABLES Performing Organization Address [facility] Co de Phone Number [facility] [place] [address] * TSH (11/21/2016 8:32 PM EDT) Thyroid Stimulating Hormone 2.29 0.27 - 4.20 mcIU/mL [facility] Blood specimen (specimen) Venous Draw / Unknown 11/21/2016 8:32 PM EDT 11/21/2016 8:40 PM EDT Narrative Resulting Agency Comment Spec In Lab Drew Pepe MD CHEMISTRY ORDERABLES Performing Organization Address [place] [facility] Co de Phone Number [facility] [place] [address] * (ABNORMAL) Differential, Automated (11/21/2016 8:32 PM EDT) Neutrophil % 38.3 % [facility] Neutrophil Absolute 3.02 1.70 - 6.10 x10(3)/[facility] LABORATORY Lymph % 48.7 % [facility] Lymphocytes Abs 3.8(H) 0.9 - 3.2 x10(3)/[facility] LABORATORY Monocyte % 7.3 % [facility] Monocyte Abs 0.6 0.3 - 0.9 x10(3)/[facility] LABORATORY Eos % 4.4 % [facility] Eosinophils Abs 0.4 0.0 - 0.4 x10(3)/[facility] LABORATORY Basophil % 0.9 % [facility] Baso Absolute 0.1 0.0 - 0.1 x10(3)/[facility] LABORATORY Immature Gran % 0.40 % [facility] Comment: Immature granulocytes(IG's)percentage and absolute count will include metamyelocytes, myelocytes, and promyelocytes. Blood smears from CBCs yielding IG's will be scanned manually for concordance. If this scan disagrees with the automated IG or if promyelocytes are noted, a manual differential will be performed. Immature Gran Absolute 0.03 0.00 - 0.04 x10(3)/[facility] LABORATORY Blood specimen (specimen) 11/21/2016 8:32 PM EDT 11/21/2016 8:37 PM EDT Narrative Resulting Agency Comment Spec In Lab Drew Pepe MD HEMATOLOGY ORDERABLE S [facility] [place] [address] * Hemogram (11/21/2016 8:32 PM EDT) White Blood Cell 7.9 4.0 - 9.5 x10(3)/[facility] LABORATORY Red Blood Cell 4.64 4.58 - 5.54 x10(6)/[facility] LABORATORY Hemoglobin 13.9 13.7 - 16.5 gm/dL [facility] Hematocrit 40.6 40.5 - 48.5 % [facility] Mean Cell Volume 87.5 82.9 - 93.1 fL [facility] Mean Cell Hemoglobin 30.0 27.5 - 32.1 pg [facility] Mean Cell Hemoglobin Concentration 34.2 32.0 - 35.7 gm/dL [facility] Platelet 179 145 - 357 x10(3)/[facility] LABORATORY RDW Standard Deviation 44.3 36.0 - 45.0 fL [facility] RDW coefficient of variation 13.8 11.4 - 13.8 % [facility] Mean Platelet Volume 10.8 7.6 - 12.9 fL [facility] NRBC% auto 0.0 % [facility] NRBC Absolute 0.000 0.000 - 0.000 x10(3)/[facility] LABORATORY Blood specimen (specimen) 11/21/2016 8:32 PM EDT 11/21/2016 8:37 PM EDT Narrative Resulting Agency Comment Spec In Lab Drew Pepe MD HEMATOLOGY ORDERABLE S [facility] [place] [address] * Cardiac Enzymes (11/21/2016 8:32 PM EDT) Troponin-T <0.03 <=0.03 ng/mL [facility] Comment: 0.03 ng/mL: Represents the 99th percentile upper reference limit for normals. >0.03 ng/mL: Elevated cardiac troponin T level indicative of myocardial damage. Diagnosis of acute, evolving or recent NV requires a typical rise and gradual fall of cTnT with at least ONE of the following: a) Ischemic symptoms b) Development of pathologic Q waves on the ECG c) ECG changes indicative of eschemia (S-T segment elevation/depression) d) Coronary artery intervention Serial bloods should be obtained for testing on admission, at 6 to 9 hrs and again at 12 to 24 hrs if earlier samples are negative and the clinical index of suspicion is high. Reference: [Myocardial infarction redefined? a consensus document of the Joint Society of Cardiology/[place] [employer] Committee for the redefinition of myocardial infarction. ??Journal of the [place] [employer] 2000; 36: 959-969] Creatine Kinase 64 0 - 200 unit/L [facility] Blood specimen (specimen) 11/21/2016 8:32 PM EDT 11/21/2016 8:37 PM EDT Narrative Resulting Agency Comment Spec In Lab Drew Pepe MD CHEMISTRY ORDERABLES Performing Organization Address [facility] Co de Phone Number [facility] [place] [address] * APTT (11/21/2016 8:32 PM EDT) Partial Thromboplastin Time 32 25 - 35 sec [facility] Comment: The recommended therapeutic range for full dose, unfractionated heparin [place] [facility] is 80 ? 114 seconds. The use of the anti-Xa (heparin) level rather than the PTT is recommended for monitoring anticoagulation intensity in critically ill patients receiving unfractionated heparin by continuous IV infusion. Blood specimen (specimen) 11/21/2016 8:32 PM EDT 11/21/2016 8:37 PM EDT Narrative Resulting Agency Comment Spec In Lab Drew Pepe MD HEMATOLOGY ORDERABLE S Performing Organization Address [facility] Co de Phone Number [facility] [place] [address] * Prothrombin Time (11/21/2016 8:32 PM EDT) Prothrombin Time 14.0 12.0 - 15.0 sec [facility] Comment: An INR <2.0 indicates adequate procoagulant activity for hemostasis in most patients without underlying bleeding disorders, though the INR may not adequately reflect hemostatic capacity in patients with liver disease and synthetic impairment. The recommended target INR range for therapeutic anticoagulation is 2.0 ? 3.0 for most applications, though lower and higher ranges may be appropriate depending on clinical circumstances. International Normalization Ratio 1.0 0.9 - 1.1 [facility] Blood specimen (specimen) 11/21/2016 8:32 PM EDT 11/21/2016 8:37 PM EDT Narrative Resulting Agency Comment Spec In Lab Drew Pepe MD HEMATOLOGY ORDERABLE S [facility] [place] [address] * Hepatic Function Panel (11/21/2016 8:32 PM EDT) Pathologist [facility] Protein, Total 6.8 6.1 - 8.0 gm/dL [facility] Albumin 4.0 3.2 - 5.2 gm/dL [facility] Aspartate Aminotransferase 15 0 - 39 unit/L [facility] Alanine Aminotransferase 9 0 - 55 unit/L [facility] Alkaline Phosphatase 43 40 - 120 unit/L [facility] Bilirubin, Total 0.2 0.2 - 1.3 mg/dL [facility] Bilirubin, Direct <0.1 0.0 - 0.3 mg/dL [facility] Blood specimen (specimen) 11/21/2016 8:32 PM EDT 11/21/2016 8:37 PM EDT Narrative Resulting Agency Comment Spec In Lab Drew Pepe MD CHEMISTRY ORDERABLES [facility] [place] [address] * (ABNORMAL) Basic Metabolic Panel (non-fasting) (11/21/2016 8:32 PM EDT) Glucose 84 65 - 199 mg/dL [facility] Comment:Diabetes: >=200 mg/d L plus symptoms Blood Urea Nitrogen 10 10 - 20 mg/dL [facility] Creatinine 0.95 0.80 - 1.50 mg/dL [facility] Comment: Please note that the pediatric reference intervals supplied above were not validated at [facility]. Results from pediatric patients should be interpreted in conjunction to the patient's age, height and muscle mass. Sodium 145 135 - 145 mmol/L [facility] Potassium 3.5 3.5 - 5.0 mmol/L [facility] Comment: Please note: ??Patients with WBC >100,000 may have falsely elevated Potassium levels. ??For accurate Potassium quantification in these patients send serum separator tube (gold top) for subsequent determinations. ??Contact the Clinical Chemistry Laboratory if there are any questions. Chloride 105 98 - 107 mmol/L [facility] Carbon Dioxide 19(L) 22 - 31 mmol/L [facility] Anion Gap 21(H) 5 - 15 mmol/L [facility] Calcium 9.2 8.5 - 10.5 mg/dL [facility] Est Glomerular Filtration Rate >60 >=60 [facility] Comment: This estimated GFR (eGFR) value was calculated using the MDRD equation which has been validated on patients between the ages of 18 and 70. The MDRD should not be used to assess kidney function in patients < 18 years of age or in patients with extremes of body mass, or in patients with acute kidney failure. This value should be multiplied by 1.2 for patients. For further information please copy and paste the following links into your internet browser. [email or web address]/DHnkdep [email or web address] Blood specimen (specimen) 11/21/2016 8:32 PM EDT 11/21/2016 8:37 PM EDT Narrative Resulting Agency Comment Spec In Lab Drew Pepe MD CHEMISTRY ORDERABLES [facility] [place] [address] * pro-Brain Natriuretic Peptide (11/21/2016 8:32 PM EDT) NT-proBNP 65 <=125 pg/mL [facility] Blood specimen (specimen) 11/21/2016 8:32 PM EDT 11/21/2016 8:37 PM EDT Narrative Resulting Agency Comment Spec In Lab Drew Pepe MD CHEMISTRY ORDERABLES [facility] [place] [address] * POCT Glucose (11/21/2016 8:12 PM EDT) Glucose, POC 80 65 - 199 mg/dL [facility] Comment: Supplemental ranges: <140 mg/dL before meals <180 mg/dL all other times of the day Blood specimen (specimen) 11/21/2016 8:12 PM EDT 11/21/2016 8:12 PM EDT Valentín Oreilly MD POINT OF CARE TEST ORDERABLES [facility] [place] [address] documented in this encounter Visit Diagnoses Not on filedocumented in this encounter Administered Medications Inactive Administered Medications - up to 3 most recent administrations Medication Order MAR Action Action Date Dose Rate Site alum-mag hydroxide-simeth (MAALOX) 200-200-20 mg/5 mL oral suspension 10 mL 10 mL, Oral, 3 TIMES DAILY PRN, Starting on 11/23/16 at 1606, Until 11/25/16 at 1305, Heartburn, Routine Given 11/23/2016 4:18 PM EDT 10 mLs aspirin tablet 325 mg 325 mg, Oral, DAILY, First dose on 11/22/16 at 0900, Until Discontinued, Routine Given 11/25/2016 9:02 AM EDT 325 mg Given 11/24/2016 8:14 AM EDT 325 mg Given 11/23/2016 8:02 AM EDT 325 mg atorvastatin (LIPITOR) tablet 80 mg 80 mg, Oral, EVERY EVENING, First dose on 11/22/16 at 1700, Until Discontinued, Routine Given 11/24/2016 4:58 PM EDT 80 mg Given 11/23/2016 4:21 PM EDT 80 mg Given 11/22/2016 5:27 PM EDT 80 mg buPROPion (WELLBUTRIN SR or ZYBAN) SR tablet 150 mg 150 mg, Oral, 2 TIMES DAILY, First dose on 11/22/16 at 0030, Until Discontinued, DO NOT CRUSH OR OPEN, Routine Given 11/25/2016 9:00 AM EDT 150 mg Given 11/24/2016 9:08 PM EDT 150 mg Given 11/24/2016 8:14 AM EDT 150 mg clopidogrel (PLAVIX) tablet 75 mg 75 mg, Oral, DAILY, First dose on 11/22/16 at 0900, Until Discontinued, Routine Given 11/25/2016 8:58 AM EDT 75 mg Given 11/24/2016 8:15 AM EDT 75 mg Given 11/23/2016 8:04 AM EDT 75 mg dextrose 50% injection 25-50 mL 25-50 mL (12.5-25 g), Intravenous, EVERY 1 HOUR PRN, Starting on 11/22/16 at 0013, Until Tu11/25/16 at 1305, Low blood sugar, For BG 50-70: 120 mL Juice or Regular (not diet) soda OR 12.5 gram (25 mL) Dextrose 50% IV OR, if no IV access, 1 mg Glucagon IM. Recheck BG in 30 minutes. May repeat juice, dextrose or glucagon once per episode For BG less than 50: 240 mL Juice or Regular (not diet) soda OR 25 grams (50 mL) Dextrose 50% IV OR, if no IV access, 1 mg Glucagon IM. Recheck BG in 30 minutes. May repeat juice, dextrose, or glucagon once per episode. To avoid extravasation, push Dextrose 50% SLOWLY (3 mL over 1 minute) in a patent, running IV, preferably a central line. For persistent hypoglycemia, consider longer-acting treatment for the duration of the active insulin., Routine diaZEPam (VALIUM) tablet 5 mg 5 mg, Oral, ONCE, 1 dose, On 11/24/16 at 1730, Cath (Day of Procedure), Routine Given 11/24/2016 5:08 PM EDT 5 mg diphenhydrAMINE (BENADRYL) capsule 25 mg 25 mg, Oral, ONCE, 1 dose, On Thu11/24/16 at 1730, Cath (Day of Procedure), Routine Given 11/24/2016 5:08 PM EDT 25 mg DULoxetine (CYMBALTA) capsule 60 mg 60 mg, Oral, 2 TIMES DAILY, First dose on 11/22/16 at 0030, Until Discontinued, Routine Given 11/25/2016 8:58 AM EDT 60 mg Given 11/24/2016 9:08 PM EDT 60 mg Given 11/24/2016 8:15 AM EDT 60 mg fentaNYL 50 mcg/mL multi-dose injection ONCE PRN, Starting on Thu11/24/16 at 1727, Until Thu11/24/16 at 1935, Intra-Operative (Intra-Procedure), Routine Given 11/24/2016 5:27 PM EDT 25 mcg gabapentin (NEURONTIN) capsule 600 mg 600 mg, Oral, USER SPECIFIED (2 times per day), First dose on 11/22/16 at 0600, Until Discontinued, Routine Given 11/25/2016 5:51 AM EDT 600 mg Given 11/24/2016 2:47 PM EDT 600 mg Given 11/24/2016 5:52 AM EDT 600 mg gabapentin (NEURONTIN) capsule 900 mg 900 mg, Oral, NIGHTLY, First dose on 11/22/16 at 0030, Until Discontinued, Routine Given 11/24/2016 9:43 PM E DT 900 mg Given 11/23/2016 8:59 PM EDT 900 mg Given 11/22/2016 8:28 PM EDT 900 mg glucagon (human recombinant) injection SolR 1 mg 1 mg, Intramuscular, EVERY 1 HOUR PRN, Starting on 11/22/16 at 0013, Until Thu11/25/16 at 1305, Low blood sugar, For BG 50-70: 120 mL Juice or Regular (not diet) soda OR 12.5 gram (25 mL) Dextrose 50% IV OR, if no IV access, 1 mg Glucagon IM. Recheck BG in 30 minutes. May repeat juice, dextrose or glucagon once per episode For BG less than 50: 240 mL Juice or Regular (not diet) soda OR 25 grams (50 mL) Dextrose 50% IV OR, if no IV access, 1 mg Glucagon IM. Recheck BG in 30 minutes. May repeat juice, dextrose, or glucagon once per episode. To avoid extravasation, push Dextrose 50% SLOWLY (3 mL over 1 minute) in a patent, running IV, preferably a central line. For persistent hypoglycemia, consider longer-acting treatment for the duration of the active insulin. , Routine heparin (porcine) injection 0-4,000 Units 0-4,000 Units, Intravenous, BOLUS PER HEPARIN PROTOCOL, Starting on Thu11/21/16 at 2011, Until Thu11/24/16 at 2205, Per Protocol, START ADJUSTMENT SCHEDULE 6 HOURS AFTER STARTING INFUSION aPTT Between 60 - 79 seconds: Bolus 2,000 units aPTT Less than 60 seconds: Bolus 4,000 units Increase infusion and recheck aPTT in 6 hours. , Routine Given 11/23/2016 5:19 PM EDT 2,000 Units Given 11/22/2016 5:53 PM EDT 2,000 Units Given 11/22/2016 4:57 AM EDT 4,000 Units heparin (porcine) injection ONCE PRN, Starting on Thu11/24/16 at 1733, Until Thu11/24/16 at 1941, Cath (Intra-Procedure), Routine Given 11/24/2016 5:52 PM EDT 2,500 Units Given 11/24/2016 5:33 PM EDT 5,000 Units heparin 25,000 units in dextrose 5% 500 mL infusion 0-5,000 Units/hr (0-100 mL/hr), Intravenous, CONTINUOUS, Starting on Thu11/21/16 at 2030, Until Thu11/24/16 at 2205, BEGIN infusion at 1,000 units per hr [...] decrease rate by 100 units per hr ( 1 units/kg/hr) - 130 - 145 seconds, stop [...] (STEMI vs NSTEMI vs UA) New Bag 11/24/2016 4:20 PM EDT 1,500 Units/hr 30 mL/hr Rate/Dose Verify 11/24/2016 8:00 AM EDT 1,500 Units/hr 30 mL/hr New Bag 11/24/2016 12:02 AM EDT 1,500 Units/hr 30 mL/hr insulin lispro (humaLOG) VIAL injection 1-4 Units 1-4 Units, Subcutaneous, 3 TIMES DAILY BEFORE MEALS, First dose on 11/22/16 at 0730, Until Discontinued, CORRECTION BOLUS Sensitive to insulin lean patient or total daily dose of all insulin needed to achieve glycemic control less than 30 units BG 140 - 160 Give 1 unit BG 161 - 200 Give 2 units BG 201 - 240 Give 3 units BG greater than 240, give 4 units and recheck BG in 2 hours. If BG remains greater than 240, repeat 4 units (no more than three times) & call for new basal insulin orders. If less than 240 after two hours, give no insulin and resume prior schedule., Routine isosorbide mononitrate (IMDUR) CR tablet 120 mg 120 mg, Oral, DAILY, First dose on 11/22/16 at 0900, Until Discontinued, DO NOT CRUSH OR OPEN, Routine Given 11/25/2016 8:58 AM EDT 120 mg Given 11/24/2016 8:15 AM EDT 120 mg Given 11/23/2016 8:08 AM EDT 120 mg lidocaine (XYLOCAINE) 10 mg/mL (1 %) injection 3 mg 3 mg (0.3 mL), Subcutaneous, ONCE PRN, 1 dose, Starting on Thu11/21/16 at 2010, Until Thu11/25/16 at 1305, for discomfort with PIV insertion, Routine losartan (COZAAR) tablet 12.5 mg 12.5 mg, Oral, DAILY, First dose on 11/22/16 at 0900, Until Discontinued, Routine Given 11/25/2016 8:57 AM EDT 12.5 mg Given 11/24/2016 8:16 AM EDT 12.5 mg Given 11/23/2016 8:07 AM EDT 12.5 mg meTOPROLOL tartrate (LOPRESSOR) tablet 25 mg 25 mg, Oral, EVERY 6 HOURS SCHEDULED, First dose on 11/22/16 at 0900, Until Discontinued, Hold if HR < 60, SBP < 100, Routine Given 11/22/2016 8:30 AM EDT 25 mg meTOPROLOL tartrate (LOPRESSOR) tablet 50 mg 50 mg, Oral, EVERY 12 HOURS SCHEDULED (2 times per day), First dose (after last modification) on 11/22/16 at 2100, Until Discontinued, Hold if HR < 60, SBP < 100, Routine Given 11/25/2016 9:00 AM EDT 50 mg Given 11/24/2016 9:08 PM EDT 50 mg Given 11/24/2016 8:16 AM EDT 50 mg midazolam (PF) (VERSED) 1 mg/mL multi-dose injection ONCE PRN, Starting on Thu11/24/16 at 1727, Until Thu11/24/16 at 1935, Cath (Intra-Procedure), Routine Given 11/24/2016 5:27 PM EDT 1 mg nitroGLYcerin 100 mcg/mL intracoronary dilution ONCE PRN, Starting on Thu11/24/16 at 1743, Until Thu11/24/16 at 1941, Cath (Intra-Procedure), Routine Given 11/24/2016 5:57 PM EDT 100 mcg Given 11/24/2016 5:43 PM EDT 100 mcg oxyCODONE (ROXICODONE) immediate release tablet 10 mg 10 mg, Oral, 4 TIMES DAILY PRN, Starting on Thu11/22/16 at 0013, Until Thu11/25/16 at 1305, back pain, Routine Given 11/23/2016 4:17 PM EDT 10 mg pantoprazole (PROTONIX) tablet 40 mg 40 mg, Oral, DAILY, First dose on 11/22/16 at 0900, Until Discontinued, DO NOT CRUSH OR OPEN, Routine Given 11/25/2016 9:01 AM EDT 40 mg Given 11/24/2016 8:16 AM EDT 40 mg Given 11/23/2016 8:08 AM EDT 40 mg perflutren protein-A microspheres (OPTISON) 0.22 mg/mL injection 3 mL 3 mL, Intravenous, ONCE PRN, 1 dose, Starting on 11/22/16 at 1300, Until 11/22/16 at 1300, for enhancement of sub-optimal echo images, Echo Lab (Intra-Procedure), Routine Given 11/22/2016 1:00 PM EDT 3 mLs potassium chloride (K-DUR/KLOR-CON) extended release tablet 20 mEq 20 mEq, Oral, ONCE, 1 dose, On 11/22/16 at 1630, 20 mEq tablet may be dissolved in water for administration, Routine Given 11/22/2016 5:27 PM EDT 20 mEq potassium chloride (K-DUR/KLOR-CON) extended release tablet 40 mEq 40 mEq, Oral, ONCE, 1 dose, On 11/22/16 at 0515, 20 mEq tablet may be dissolved in water for administration, Routine Given 11/22/2016 5:00 AM EDT 40 mEq pramipexole (MIRAPEX) tablet 0.5 mg 0.5 mg, Oral, NIGHTLY, First dose on 11/22/16 at 0030, Until Discontinued, Routine Given 11/24/2016 9:08 PM E DT 0.5 mg Given 11/23/2016 8:59 PM EDT 0.5 mg Given 11/22/2016 8:30 PM EDT 0.5 mg ranolazine (RANEXA) ext-release tablet 500 mg 500 mg, Oral, 2 TIMES DAILY, First dose on 11/22/16 at 0030, Until Discontinued, DO NOT CRUSH OR OPEN. Baseline EKG required before administration., Routine, Has baseline EKG been obtained? Yes Given 11/25/2016 9:00 AM EDT 500 mg Given 11/24/2016 9:08 PM EDT 500 mg Given 11/24/2016 8:17 AM EDT 500 mg sodium chloride 0.9 % flush 5 mL 5 mL, Intravenous, 2 TIMES DAILY, First dose on 11/22/16 at 0030, Until Discontinued, Routine Given 11/24/2016 9:12 PM EDT 5 mLs Given 11/23/2016 9:00 PM EDT 5 mLs Given 11/23/2016 8:10 AM EDT 5 mLs sodium chloride 0.9 % flush 5 mL 5 mL, Intravenous, EVERY 12 HOURS, First dose on Thu11/22/16 at 0030, Until Discontinued, Cath (Day of Procedure), Routine Given 11/24/2016 12:30 AM EDT 5 mLs Given 11/23/2016 12:26 PM EDT 5 mLs Given 11/23/2016 12:30 AM EDT 5 mLs sodium chloride 0.9 % flush 5 mL 5 mL, Intravenous, EVERY 12 HOURS, First dose on Thu11/24/16 at 0115, Until Discontinued, Cath (Day of Procedure), Routine Given 11/24/2016 1:15 AM EDT 5 mLs sodium chloride 0.9 % flush 5 mL 5 mL, Intravenous, EVERY 12 HOURS, First dose on Thu11/21/16 at 2030, Until Discontinued, Routine Given 11/24/2016 9:09 AM EDT 5 mLs Given 11/23/2016 8:30 PM EDT 5 mLs Given 11/23/2016 8:10 AM EDT 5 mLs sodium chloride 0.9 % flush 5-20 mL 5-20 mL, Intravenous, EVERY 1 MIN PRN, Starting on Thu11/21/16 at 2010, Until Thu11/25/16 at 1305, flush, Flush pertains to all indwelling lines. Flush per protocol found in the job aid using the link provided on this medication record., Routine sodium chloride 0.9% infusion 100 mL/hr, Intravenous, CONTINUOUS, Starting on Thu11/24/16 at 0300, Until Thu11/24/16 at 1804, Cath (Day of Procedure) New Bag 11/24/2016 12:07 PM EDT 100 mL/hr 100 mL/hr New Bag 11/24/2016 2:28 AM EDT 100 mL/hr 100 mL/hr sodium chloride 0.9% infusion CONTINUOUS PRN, Starting on Thu11/24/16 at 1750, Until Thu11/24/16 at 1941, Cath (Intra-Procedure) New Bag 11/24/2016 5:50 PM EDT 250 mLs sodium chloride 0.9% infusion 100 mL/hr, Intravenous, CONTINUOUS, Starting on 11/24/16 at 1830, Until 11/24/16 at 2329, Recovery (Recovery-Hospital Unit) New Bag 11/24/2016 6:29 PM EDT 100 mL/hr 100 mL /hr topiramate (TOPAMAX) tablet 50 mg 50 mg, Oral, NIGHTLY, First dose on 11/22/16 at 0030, Until Discontinued, Routine Given 11/24/2016 9:08 PM EDT 50 mg Given 11/23/2016 8:59 PM EDT 50 mg Given 11/22/2016 8:29 PM EDT 50 mg documented in this encounter Active and Recently Administered Medications Times are shown in EDT. Scheduled Medication Order 11/23/2016 11/24/2016 11/25/2016 aspirin tablet 325 mg 325 mg, Oral, DAILY, First dose on 11/22/16 at 0900, Until Discontinued, Routine 0802 (Given - Provider: Esha Chen RN) 0814 (Given - Provider: Esha Chen RN)1811 ([facility] Hold - Provider: Admin Adt - Reason: Transfer to a Procedural area)1940 (MAR Unhold - Provider: Admin Adt) 09 (Given - Provider: Venancio Bourgeois RN) atorvastatin (LIPITOR) tablet 80 mg 80 mg, Oral, EVERY EVENING, First dose on 11/22/16 at 1700, Until Discontinued, Routine 162 (Given - Provider: Esha Chen RN) 1658 (Given - Provider: Esha Chen RN)1811 (MAR Hold - Provider: Admin Adt - Reason: Transfer to a Procedural area)1940 (MAR Unhold - Provider: Admin Adt) buPROPion (WELLBUTRIN SR or ZYBAN) SR tablet 150 mg 150 mg, Oral, 2 TIMES DAILY, First dose on 11/22/16 at 0030, Until Discontinued, DO NOT CRUSH OR OPEN, Routine 0803 (Given - Provider: Esha Chen RN)2058 (Given - Provider: Christy Medina RN) 0814 (Given - Provider: Esha Chen RN)181 (MAR Hold - Provider: Admin Adt - Reason: Transfer to a Procedural area)1940 (MAR Unhold - Provider: Admin Adt)210 (Given - Provider: Venice Huffman, VERO) 899 (Given - Provider: Venancio Bourgeois, VERO) clopidogrel (PLAVIX) tablet 75 mg 75 mg, Oral, DAILY, First dose on 11/22/16 at 0900, Until Discontinued, Routine 0804 (Given - Provider: Esha Chen RN) 0815 (Given - Provider: Esha Chen RN)1811 (OCT Hold - Provider: Admin Adt - Reason: Transfer to a Procedural area)1940 (OCT Unhold - Provider: Admin Adt) 08 (Given - Provider: Venancio Bourgeois, VERO) diaZEPam (VALIUM) tablet 5 mg (COMPLETED) 5 mg, Oral, ONCE, 1 dose, On Thu11/24/16 at 1730, Cath (Day of Procedure), Routine 170 (Given - Provider: Esha Chen RN) diphenhydrAMINE (BENADRYL) capsule 25 mg (COMPLETED) 25 mg, Oral, ONCE, 1 dose, On Thu11/24/16 at 1730, Cath (Day of Procedure), Routine 170 (Given - Provider: Esha Chen RN) DULoxetine (CYMBALTA) capsule 60 mg 60 mg, Oral, 2 TIMES DAILY, First dose on 11/22/16 at 0030, Until Discontinued, Routine 0804 (Given - Provider: Esha Chen RN)2058 (Given - Provider: Christy Medina RN) 0815 (Given - Provider: Esha Chen RN)1811 (OCT Hold - Provider: Admin Adt - Reason: Transfer to a Procedural area)1940 (OCT Unhold - Provider: Admin Adt)2107 (Given - Provider: Venice Huffman, VERO) 0858 (Given - Provider: Venancio Bourgeois, VERO) gabapentin (NEURONTIN) capsule 600 mg 600 mg, Oral, USER SPECIFIED (2 times per day), First dose on 11/22/16 at 0600, Until Discontinued, Routine 0600 (Given - Provider: Alana Patterson RN)1335 (Given - Provider: Esha Chen RN) 0552 (Given - Provider: Christy Medina RN)1447 (Given - Provider: Esha Chen RN)1812 (OCT Hold - Provider: Admin Adt - Reason: Transfer to a Procedural area)1940 (MAR Unhold - Provider: Admin Adt) 0551 (Given - Provider: Venice Huffman RN) gabapentin (NEURONTIN) capsule 900 mg 900 mg, Oral, NIGHTLY, First dose on 11/22/16 at 0030, Until Discontinued, Routine 2058 (Given - Provider: Christy Medina RN) 1811 (OCT Hold - Provider: Admin Adt - Reason: Transfer to a Procedural area)1940 (OCT Unhold - Provider: Admin Adt)2142 (Given - Provider: Venice Huffman RN) insulin lispro (humaLOG) VIAL injection 1-4 Units(Linked Group 1) 1-4 Units, Subcutaneous, 3 TIMES DAILY BEFORE MEALS, First dose on 11/22/16 at 0730, Until Discontinued, CORRECTION BOLUS Sensitive to insulin lean patient or total daily dose of all insulin needed to achieve glycemic control less than 30 units BG 140 - 160 Give 1 unit BG 161 - 200 Give 2 units BG 201 - 240 Give 3 units BG greater than 240, give 4 units and recheck BG in 2 hours. If BG remains greater than 240, repeat 4 units (no more than three times) & call for new basal insulin orders. If less than 240 after two hours, give no insulin and resume prior schedule., Routine 0730 (Not Given - Provider: Esha Chen RN - Reason: Order parameters not met)1130 (Not Given - Provider: Esha Chen RN - Reason: Order parameters not met)1630 (Not Given - Provider: Esha Chen RN - Reason: Order parameters not met) 0730 (Not Given - Provider: Esha Chen RN - Reason: Order parameters not met)1130 (Not Given - Provider: Ehsa Chen RN - Reason: Order parameters not met)1630 (Not Given - Provider: Esha Chen RN - Reason: Order parameters not met)1811 (MAR Hold - Provider: Admin Adt - Reason: Transfer to a Procedural area)1940 (MAR Unhold - Provider: Admin Adt) 0730 (Not Given - Provider: Venancio Bourgeois RN - Reason: Order parameters not met) isosorbide mononitrate (IMDUR) CR tablet 120 mg 120 mg, Oral, DAILY, First dose on 11/22/16 at 0900, Until Discontinued, DO NOT CRUSH OR OPEN, Routine 0808 (Given - Provider: Esha Chen RN) 0815 (Given - Provider: Esha Chen RN)1811 ([facility] Hold - Provider: Admin Adt - Reason: Transfer to a Procedural area)1940 ([facility] Unhold - Provider: Admin Adt) 0858 (Given - Provider: Venancio Bourgeois RN) losartan (COZAAR) tablet 12.5 mg 12.5 mg, Oral, DAILY, First dose on 11/22/16 at 0900, Until Discontinued, Routine 0807 (Given - Provider: Esha Chen RN) 0816 (Given - Provider: Esha Chen RN)1811 ([facility] Hold - Provider: Admin Adt - Reason: Transfer to a Procedural area)1940 ([facility] Unhold - Provider: Admin Adt) 0857 (Given - Provider: Venancio Bourgeois RN) meTOPROLOL tartrate (LOPRESSOR) tablet 50 mg 50 mg, Oral, EVERY 12 HOURS SCHEDULED (2 times per day), First dose (after last modification) on 11/22/16 at 2100, Until Discontinued, Hold if HR < 60, SBP < 100, Routine 0807 (Given - Provider: Esha Chen RN)2055 (Given - Provider: Christy Medina RN) 0816 (Given - Provider: Esha Chen RN)1811 ([facility] Hold - Provider: Admin Adt - Reason: Transfer to a Procedural area)1940 ([facility] Unhold - Provider: Admin Adt)2107 (Given - Provider: Venice Huffman RN) 09 (Given - Provider: Venancio Bourgeois RN) pantoprazole (PROTONIX) tablet 40 mg 40 mg, Oral, DAILY, First dose on 11/22/16 at 0900, Until Discontinued, DO NOT CRUSH OR OPEN, Routine 0808 (Given - Provider: Esha Chen RN) 0816 (Given - Provider: Esha Chen RN)1811 ([facility] Hold - Provider: Admin Adt - Reason: Transfer to a Procedural area)1940 ([facility] Unhold - Provider: Admin Adt) 900 (Given - Provider: Venancio Bourgeois, RN) pramipexole (MIRAPEX) tablet 0.5 mg 0.5 mg, Oral, NIGHTLY, First dose on 11/22/16 at 0030, Until Discontinued, Routine 2058 (Given - Provider: Christy Medina, VERO) 1811 ([facility] Hold - Provider: Admin Adt - Reason: Transfer to a Procedural area)1940 ([facility] Unhold - Provider: Admin Adt)2107 (Given - Provider: Venice Huffman, VERO) ranolazine (RANEXA) ext-release tablet 500 mg 500 mg, Oral, 2 TIMES DAILY, First dose on 11/22/16 at 0030, Until Discontinued, DO NOT CRUSH OR OPEN. Baseline EKG required before administration., Routine, Has baseline EKG been obtained? Yes 808 (Given - Provider: Esha Chen RN)2058 (Given - Provider: Christy Medina RN) 08 (Given - Provider: Esha Chen RN)1811 ([facility] Hold - Provider: Admin Adt - Reason: Transfer to a Procedural area)1940 ([facility] Unhold - Provider: Admin Adt)2107 (Given - Provider: Venice Huffman, VERO) 899 (Given - Provider: Venancio Bourgeois, VERO) sodium chloride 0.9 % flush 5 mL 5 mL, Intravenous, 2 TIMES DAILY, First dose on 11/22/16 at 0030, Until Discontinued, Routine 08 (Given - Provider: Esha Chen RN)2099 (Given - Provider: Christy Medina RN) 09 (Not Given - Provider: Esha Chen RN - Reason: See comment - Comment: IV flds infusing)1811 ([facility] Hold - Provider: Admin Adt - Reason: Transfer to a Procedural area)1940 ([facility] Unhold - Provider: Admin Adt)2111 (Given - Provider: Venice Huffman, VERO) 09 (Due - Provider: Admin Adt) sodium chloride 0.9 % flush 5 mL (CANCELED) 5 mL, Intravenous, EVERY 12 HOURS, First dose on 11/22/16 at 0030, Until Discontinued, Cath (Day of Procedure), Routine 0030 (Given - Provider: Alana Patterson RN)1226 (Given - Provider: Esha Chen RN) 0030 (Given - Provider: Christy Medina RN)1230 (Not Given - Provider: Esha Chen RN - Reason: See comment - Comment: completed earlier) sodium chloride 0.9 % flush 5 mL (CANCELED) 5 mL, Intravenous, EVERY 12 HOURS, First dose on Thu11/24/16 at 0115, Until Discontinued, Cath (Day of Procedure), Routine 0115 (Given - Provider: Christy Medina RN)1315 (Not Given - Provider: Esha Chen RN - Reason: See comment - Comment: completed earlier) sodium chloride 0.9 % flush 5 mL 5 mL, Intravenous, EVERY 12 HOURS, First dose on Thu11/21/16 at 2030, Until Discontinued, Routine 0810 (Given - Provider: Esha Chen RN)2030 (Given - Provider: Christy Medina RN) 0909 (Given - Provider: Esha Chen RN)181 (OCT Hold - Provider: Admin Adt - Reason: Transfer to a Procedural area)194 (MAR Unhold - Provider: Admin Adt)2029 (Not Given - Provider: Venice Huffman RN - Reason: See comment - Comment: IV infusing) 0830 (Due - Provider: Admin Adt) topiramate (TOPAMAX) tablet 50 mg 50 mg, Oral, NIGHTLY, First dose on Thu11/22/16 at 0030, Until Discontinued, Routine 2058 (Given - Provider: Christy Medina RN) 181 (OCT Hold - Provider: Admin Adt - Reason: Transfer to a Procedural area)194 ([facility] Unhold - Provider: Admin Adt)210 (Given - Provider: Venice Huffman, VERO) Continuous Medication Order 11/23/2016 11/24/2016 11/25/2016 heparin 25,000 units in dextrose 5% 500 mL infusion (CANCELED)(Linked Group 2) 0-5,000 Units/hr (0-100 mL/hr), Intravenous, CONTINUOUS, Starting on Thu11/21/16 at 2030, Until Thu11/24/16 at 2205, BEGIN infusion at 1,000 units per hr [...] decrease rate by 100 units per hr ( 1 units/kg/hr) - 130 - 145 seconds, stop [...] Indication: ACS (STEMI vs NSTEMI vs UA) 0027 (Rate/Dose Change - Provider: Alana Patterson RN)0651 (Rate/Dose Verify - Provider: Alana Patterson RN)0755 (New Bag - Provider: Esha Chen RN)1723 (Rate/Dose Change - Provider: Esha Chen RN) 0002 (New Bag - Provider: Christy Medina RN - Comment: paused for 30 mins)0800 (Rate/Dose Verify - Provider: Esha Chen RN)1620 (New Bag - Provider: Esha Chen RN)1812 (MAR Hold - Provider: Admin Adt - Reason: Transfer to a Procedural area)194 ([facility] Unhold - Provider: Admin Adt) sodium chloride 0.9% infusion (CANCELED) 100 mL/hr, Intravenous, CONTINUOUS, Starting on Thu11/24/16 at 0300, Until Thu11/24/16 at 1804, Cath (Day of Procedure) 0228 (New Bag - Provider: Christy L Carol, RN)1207 (New Bag - Provider: Esha Chen RN)1706 (Stopped - Provider: Esha Chen RN) sodium chloride 0.9% infusion () 100 mL/hr, Intravenous, CONTINUOUS, Starting on 11/24/16 at 1830, Until Thu11/24/16 at 2329, Recovery (Recovery-Hospital Unit) 1829 (New Bag - Provider: Fany Kaplan RN) PRN Medication Order 11/23/2016 11/24/2016 11/25/2016 alum-mag hydroxide-simeth (MAALOX) 200-200-20 mg/5 mL oral suspension 10 mL 10 mL, Oral, 3 TIMES DAILY PRN, Starting on 11/23/16 at 1606, Until Thu11/25/16 at 1305, Heartburn, Routine 1618 (Given - Provider: Esha Chen RN) 181 (OCT Hold - Provider: Admin Adt - Reason: Transfer to a Procedural area)1940 ([facility] Unhold - Provider: Admin Adt) cyclobenzaprine (FLEXERIL) tablet 10 mg 10 mg, Oral, 3 TIMES DAILY PRN, Starting on 11/22/16 at 0013, Until Thu11/25/16 at 1305, Muscle spasms, Routine 181 ([facility] Hold - Provider: Admin Adt - Reason: Transfer to a Procedural area)1940 ([facility] Unhold - Provider: Admin Adt) dextrose 50% injection 25-50 mL(Linked Group 3) 25-50 mL (12.5-25 g), Intravenous, EVERY 1 HOUR PRN, Starting on 11/22/16 at 0013, Until Thu11/25/16 at 1305, Low blood sugar, For BG 50-70: 120 mL Juice or Regular (not diet) soda OR 12.5 gram (25 mL) Dextrose 50% IV OR, if no IV access, 1 mg Glucagon IM. Recheck BG in 30 minutes. May repeat juice, dextrose or glucagon once per episode For BG less than 50: 240 mL Juice or Regular (not diet) soda OR 25 grams (50 mL) Dextrose 50% IV OR, if no IV access, 1 mg Glucagon IM. Recheck BG in 30 minutes. May repeat juice, dextrose, or glucagon once per episode. To avoid extravasation, push Dextrose 50% SLOWLY (3 mL over 1 minute) in a patent, running IV, preferably a central line. For persistent hypoglycemia, consider longer-acting treatment for the duration of the active insulin., Routine 1811 (OCT Hold - Provider: Admin Adt - Reason: Transfer to a Procedural area)1940 ([facility] Unhold - Provider: Admin Adt) fentaNYL 50 mcg/mL multi-dose injection (CANCELED) ONCE PRN, Starting on Thu11/24/16 at 1727, Until Thu11/24/16 at 1935, Intra-Operative (Intra-Procedure), Routine 1726 (Given - Provider: Wyatt Becker) glucagon (human recombinant) injection SolR 1 mg(Linked Group 3) 1 mg, Intramuscular, EVERY 1 HOUR PRN, Starting on 11/22/16 at 0013, Until Tu11/25/16 at 1305, Low blood sugar, For BG 50-70: 120 mL Juice or Regular (not diet) soda OR 12.5 gram (25 mL) Dextrose 50% IV OR, if no IV access, 1 mg Glucagon IM. Recheck BG in 30 minutes. May repeat juice, dextrose or glucagon once per episode For BG less than 50: 240 mL Juice or Regular (not diet) soda OR 25 grams (50 mL) Dextrose 50% IV OR, if no IV access, 1 mg Glucagon IM. Recheck BG in 30 minutes. May repeat juice, dextrose, or glucagon once per episode. To avoid extravasation, push Dextrose 50% SLOWLY (3 mL over 1 minute) in a patent, running IV, preferably a central line. For persistent hypoglycemia, consider longer-acting treatment for the duration of the active insulin. , Routine 1811 ([facility] Hold - Provider: Admin Adt - Reason: Transfer to a Procedural area)1940 ([facility] Unhold - Provider: Admin Adt) heparin (porcine) injection 0-4,000 Units (CANCELED)(Linked Group 2) 0-4,000 Units, Intravenous, BOLUS PER HEPARIN PROTOCOL, Starting on Thu11/21/16 at 2011, Until Thu11/24/16 at 2205, Per Protocol, START ADJUSTMENT SCHEDULE 6 HOURS AFTER STARTING INFUSION aPTT Between 60 - 79 seconds: Bolus 2,000 units aPTT Less than 60 seconds: Bolus 4,000 units Increase infusion and recheck aPTT in 6 hours. , Routine 1718 (Given - Provider: Esha Chen RN) 1811 ([facility] Hold - Provider: Admin Adt - Reason: Transfer to a Procedural area)1940 ([facility] Unhold - Provider: Admin Adt) heparin (porcine) injection (CANCELED) ONCE PRN, Starting on Thu11/24/16 at 1733, Until Thu11/24/16 at 1941, Cath (Intra-Procedure), Routine 1732 (Given - Provider: Naye Tena, VERO)1751 (Given - Provider: Naye Tena, VERO) lidocaine (XYLOCAINE) 10 mg/mL (1 %) injection 3 mg 3 mg (0.3 mL), Subcutaneous, ONCE PRN, 1 dose, Starting on Thu11/21/16 at 2010, Until Thu11/25/16 at 1305, for discomfort with PIV insertion, Routine 1811 ([facility] Hold - Provider: Admin Adt - Reason: Transfer to a Procedural area)1940 ([facility] Unhold - Provider: Admin Adt) midazolam (PF) (VERSED) 1 mg/mL multi-dose injection (CANCELED) ONCE PRN, Starting on Thu11/24/16 at 1727, Until Thu11/24/16 at 1935, Cath (Intra-Procedure), Routine 1726 (Given - Provider: Wyatt Becker) nitroGLYcerin (NITROSTAT) SL tablet 0.4 mg 0.4 mg, Sublingual, EVERY 5 MIN PRN, Starting on 11/22/16 at 0013, Until Thu11/25/16 at 1305, Chest pain, May repeat every 5 minutes for a total of three doses. Notify provider if chest pain not relieved with nitroglycerin. Do not administer nitroglycerin if the patinet has received or taken phosphodiesterase (PDE-5) inhibitors such as sildenafil, tadalafil or vardenafil within the last 24 to 72 hours., Routine 1811 ([facility] Hold - Provider: Admin Adt - Reason: Transfer to a Procedural area)1940 ([facility] Unhold - Provider: Admin Adt) nitroGLYcerin 100 mcg/mL intracoronary dilution (CANCELED) ONCE PRN, Starting on Thu11/24/16 at 1743, Until Thu11/24/16 at 1941, Cath (Intra-Procedure), Routine 174 (Given - Provider: Anton Horvath MD)175 (Given - Provider: Anton Horvath MD) oxyCODONE (ROXICODONE) immediate release tablet 10 mg 10 mg, Oral, 4 TIMES DAILY PRN, Starting on 11/22/16 at 0013, Until Tu11/25/16 at 1305, back pain, Routine 1617 (Given - Provider: Esha Chen RN) 1811 ([facility] Hold - Provider: Admin Adt - Reason: Transfer to a Procedural area)1940 ([facility] Unhold - Provider: Admin Adt) sodium chloride 0.9 % flush 5-20 mL 5-20 mL, Intravenous, EVERY 1 MIN PRN, Starting on 11/22/16 at 0013, Until Tu11/25/16 at 1305, flush, Flush pertains to all indwelling lines. Flush per protocol found in the job aid using the link provided on this medication record., Routine 1811 ([facility] Hold - Provider: Admin Adt - Reason: Transfer to a Procedural area)1940 ([facility] Unhold - Provider: Admin Adt) sodium chloride 0.9 % flush 5-20 mL 5-20 mL, Intravenous, EVERY 1 MIN PRN, Starting on Thu11/21/16 at 2010, Until Tu11/25/16 at 1305, flush, Flush pertains to all indwelling lines. Flush per protocol found in the job aid using the link provided on this medication record., Routine 1811 ([facility] Hold - Provider: Admin Adt - Reason: Transfer to a Procedural area)1940 ([facility] Unhold - Provider: Admin Adt) sodium chloride 0.9% infusion (CANCELED) CONTINUOUS PRN, Starting on 11/24/16 at 1750, Until Thu11/24/16 at 194, Cath (Intra-Procedure) 1750 (New Bag - Provider: Naye Tena RN) Linked Groups Order Group 1: POCT Fingerstick Glucose (CANCELED) Routine, 4 TIMES DAILY BEFORE MEALS & AT BEDTIME, First occurrence on 11/22/16 at 0700, Until Specified, Consider choosing FOUR TIMES A DAY BEFORE MEALS AND AT BEDTIME as frequency for: Patients who have a good hypoglycemia awareness And insulin lispro (humaLOG) VIAL injection 1-4 UnitsJump to med 1-4 Units, Subcutaneous, 3 TIMES DAILY BEFORE MEALS, First dose on Thu11/22/16 at 0730, Until Discontinued, CORRECTION BOLUS Sensitive to insulin lean patient or total daily dose of all insulin needed to achieve glycemic control less than 30 units BG 140 - 160 Give 1 unit BG 161 - 200 Give 2 units BG 201 - 240 Give 3 units BG greater than 240, give 4 units and recheck BG in 2 hours. If BG remains greater than 240, repeat 4 units (no more than three times) & call for new basal insulin orders. If less than 240 after two hours, give no insulin and resume prior schedule., Routine Group 2: heparin (porcine) injection 0-4,000 Units (CANCELED)Jump to med 0-4,000 Units, Intravenous, BOLUS PER HEPARIN PROTOCOL, Starting on Thu11/21/16 at 2011, Until Thu11/24/16 at 2205, Per Protocol, START ADJUSTMENT SCHEDULE 6 HOURS AFTER STARTING INFUSION aPTT Between 60 - 79 seconds: Bolus 2,000 units aPTT Less than 60 seconds: Bolus 4,000 units Increase infusion and recheck aPTT in 6 hours. , Routine And heparin 25,000 units in dextrose 5% 500 mL infusion (CANCELED)Jump to med 0-5,000 Units/hr (0-100 mL/hr), Intravenous, CONTINUOUS, Starting on Thu11/21/16 at 2030, Until Thu11/24/16 at 2205, BEGIN infusion at 1,000 units per hr [...] decrease rate by 100 units per hr ( 1 units/kg/hr) - 130 - 145 seconds, stop [...] ACS (STEMI vs NSTEMI vs UA) Group 3: dextrose 50% injection 25-50 mLJump to med 25-50 mL (12.5-25 g), Intravenous, EVERY 1 HOUR PRN, Starting on 11/22/16 at 0013, Until Thu11/25/16 at 1305, Low blood sugar, For BG 50-70: 120 mL Juice or Regular (not diet) soda OR 12.5 gram (25 mL) Dextrose 50% IV OR, if no IV access, 1 mg Glucagon IM. Recheck BG in 30 minutes. May repeat juice, dextrose or glucagon once per episode For BG less than 50: 240 mL Juice or Regular (not diet) soda OR 25 grams (50 mL) Dextrose 50% IV OR, if no IV access, 1 mg Glucagon IM. Recheck BG in 30 minutes. May repeat juice, dextrose, or glucagon once per episode. To avoid extravasation, push Dextrose 50% SLOWLY (3 mL over 1 minute) in a patent, running IV, preferably a central line. For persistent hypoglycemia, consider longer-acting treatment for the duration of the active insulin., Routine Or glucagon (human recombinant) injection SolR 1 mgJump to med 1 mg, Intramuscular, EVERY 1 HOUR PRN, Starting on 11/22/16 at 0013, Until Thu11/25/16 at 1305, Low blood sugar, For BG 50-70: 120 mL Juice or Regular (not diet) soda OR 12.5 gram (25 mL) Dextrose 50% IV OR, if no IV access, 1 mg Glucagon IM. Recheck BG in 30 minutes. May repeat juice, dextrose or glucagon once per episode For BG less than 50: 240 mL Juice or Regular (not diet) soda OR 25 grams (50 mL) Dextrose 50% IV OR, if no IV access, 1 mg Glucagon IM. Recheck BG in 30 minutes. May repeat juice, dextrose, or glucagon once per episode. To avoid extravasation, push Dextrose 50% SLOWLY (3 mL over 1 minute) in a patent, running IV, preferably a central line. For persistent hypoglycemia, consider longer-acting treatment for the duration of the active insulin. 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
--- OUTSIDE RECORDS SUMMARY | 2024-04-30 13:42 | XMS_ITS | Encounter Summary ---
Author Organization [facility] Address [facility] [address] Care Team Providers Care Cottage Cheese Maker Name Role Phone Coni Lim MD Primary Care Provider [phone] Reason for Visit * Auth/Cert Specialty Diagnoses / Procedures Referred By Ruby garvin Referred To Contact Diagnoses Unstable angina [place] Referral ID Status Reason Start Date Expiration Date Visits Re quested Visits Authorized [id number] 1 1 Encounter Details Date Type Department Care Team (Latest Contact Info) Description 11/21/2016 7:58 PM EDT - 11/25/2016 11:04 AM EDT Hospital Encounter Inter[place] [address] Valentín Oreilly MD [facility] [place] [address] Roque Sanches MD [facility] [place] [address] Unstable angina Discharge Disposition: Home Social History [...] Sign Reading Time Taken Comments Blood Pressure 125/72 11/25/2016 7:19 AM EDT Pulse 67 11/25/2016 7:19 AM EDT Temperature 36.6 ??C (97.9 ??F) 11/25/2016 7:19 AM ED T Respiratory Rate 16 11/25/2016 7:19 AM EDT Oxygen Saturation 98% 11/25/2016 7:19 AM EDT Inhaled Oxygen Concentration - - Weight 94.6 kg (208 lb 8.9 oz) 11/25/2016 6:41 A M EDT Height 177.8 cm (5' 10) 11/22/2016 2:10 AM EDT Body Mass Index 29.92 11/22/2016 2:10 AM EDT documented in this encounter Discharge Summaries * Keisha Rose APRN - 11/22/2016 7:46 PM EDT Images from the original note were not included. Discharge Summary Patient Name: Romeo Coelho Patient Age: 51 y.o. Language: Yemeni Race: White Ethnicity: Not nor Admit date: 11/21/2016 Discharge date and time: 11/25/2016 Attending Physician: Roque Sanches MD Discharge Physician: Roque Sanches MD Follow-up Recommendations for Providers: 1. Admitted with unstable angina. Drug-eluting stent RCA. 2. Requires dual antiplatelet therapy for 1 year 3. Smoking cessation Inpatient Provider Contact Information: Keisha Rose APRN [facility] Provider # [id number] Discharge Diagnoses (Hospital Problems) and Secondary Diagnoses (Chronic Problems): Active Hospital Problems Diagnosis ??? Unstable angina ??? CAD (coronary artery disease) -Coronary Angio 07/29/2013: 65% (FFR 0.74) mid LAD lesion s/p PCI with 3.5 X 18 mm JACINDA - [place] 2009 post abnormal nuc stress +IW, EF [...] stent restenosis addressed with LAD stentangioplasty at [facility] in January 2014), DM2, HTN, dyslipidemia, continued tobacco use, and obesity was transferred from [facility] to [facility] for further evaluation of unstable angina. Prior [...] PF, Split 07/30/2013 ??? Influenza Vaccine (Novel) [id number], Injectable 05/24/2009 ??? Influenza Vaccine w/Preservative, Split [...] contact one of the cardiology nurses at [facility] during normal business hours(Thursday through Thursday, 8 AM to 5 PM) at . During nonbusiness hours (evenings, nights, weekends, holidays), you may contact the collections curator principal hardware architect at . Return to work: -unemployed Driving: -No driving for 48 hours after catheterization. Follow up Appointments: ?? PCP: Coni Lim MD will see you on November 28, 2016 at 2:45 PM at [facility]. You may contact her office at [phone] with any questions or concerns ?? Cardiology: Please see Dr. Ling in [place], [place] on December 16 at 11:00 AM. His office may be contacted at with any questions or concerns. Home oxygen therapy: N/A Arrangements for VNA/home care: none Discharge References/Attachments None Keisha Rose APRN Nurse Practitioner-Department of Cardiology [email or web address] Pager [phone] Phone number: [phone] Fax number [phone] I have discussed this patient with attending [...] contact one of the cardiology nurses at [facility] during normal business hours(Thursday through Thursday, 8 AM to 5 PM) at . During nonbusiness hours (evenings, nights, weekends, holidays), you may contact the collections curator principal hardware architect at . Return to work: -unemployed Driving: -No driving for 48 hours after catheterization. Follow up Appointments: ?? PCP: Coni Lim MD will see you on November 28, 2016 at 2:45 PM at [facility]. You may contact her office at [phone] with any questions or concerns ?? Cardiology: Please see Dr. Ling in [place], [place] on December 16 at 11:00 AM. [...] Nicotine Replacement Therapy , November 23, 2012: https://www.federalregister.gov/articles//2013-70627/modificati cqs-hc-ytozacmu-ys-loiydwvb-ibzwnnqagww-rlzbcph-wpdhzcqn-zse-npyi-kdx-arfajzv-hu man-use Nicotine lozenge instructions: Use the 4 [...] Nicotine Replacement Therapy , November 23, 2012: https://www.federalregister.gov/articles//2013-39678/modificati cnz-ve-aqfwrlmn-hf-qasfobjn-gftayglcxyy-wwsxthm-tkycucpd-cdo-ovml-qxw-mesioex-hu man-use Remember to cut down on regular coffee intake to no more than 2-3 eight ounce cups a day. Substitute decaf or herbal tea, water or any other non caffeine drink for regular coffee to avoid rising caffeine levels when you don't smoke. You have been referred to the [place] Quitline and should expect to receive a phone call from them within the next several days. If you do not hear from them within one week of discharge please call them.The number is in the green Tobacco Cessation folder you were given. 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 Unstable angina ??? CAD (coronary artery disease) -Coronary Angio 07/29/2013: 65% (FFR 0.74) mid LAD lesion s/p PCI with 3.5 X 18 mm JACINDA - [place] 2009 post abnormal nuc stress +IW, EF [...] mood and affect. Lab Comments: Recent Labs 11/25/16 0452 11/24/16 0620 11/23/16 0624 WBC 9.0 8.9 8.0 HGB 14.5 14.7 14.5 HCT 44.2 43.2 43.1 PLATELET 214 203 207 Recent Labs 11/21/16 203 INR 1.0 Recent Labs 11/25/16 0452 11/23/16 0624 11/22/16 1006 11/22/16 0358 NA 142 142 -- 142 K 3.9 3.9 3.8 3.3* CL 108* 106 -- 106 CO2 19* 20* -- 21* BUN 10 10 -- 10 CREATININE 0.87 0.98 -- 0.85 Recent Labs 11/21/162031 AST 15 ALT 9 ALKPHOS 43 BILITOT 0.2 BILIDIR <0.1 Recent Labs 11/25/16 0452 11/23/16 0624 11/22/16 0358 CALCIUM 9.5 9.6 [...] priority for the procedure was Urgent. The [facility] indication for the procedure was PCI for [...] restenosis addressed with LAD stent angioplasty at [facility] in January 2014, DM2, HTN, dyslipidemia, continued tobacco use, and obesity transferred to [facility] for further evaluation of unstable angina. Underwent Cardiac catheterization to day (11/24/16)-CI of RCA Comfortable overnight Smoking cessation consult Plan: 1. Unstable angina LAD and LCx disease defined at prior cardiac catheterizations (at [facility] and [facility]) Describes crescendo anginal symptoms which have been [...] tobacco use. 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 Unstable angina ??? CAD (coronary artery disease) -Coronary Angio 07/29/2013: 65% (FFR 0.74) mid LAD lesion s/p PCI with 3.5 X 18 mm JACINDA - [place] 2009 post abnormal nuc stress +IW, EF [...] affect. Lab Comments: Recent Labs 11/24/16 0620 11/23/16 0624 11/22/16 0358 WBC 8.9 8.0 8.6 HGB 14.7 [...] <0.1 Recent Labs 11/23/16 0624 11/22/16 0358 11/21/162031 CALCIUM 9.6 8.8 9.2 Recent Labs 11/22/16 [...] restenosis addressed with LAD stent angioplasty at [facility] in January 2014, DM2, HTN, dyslipidemia, continued tobacco use, and obesity transferred to [facility] for further evaluation of unstable angina. Cardiac catheterization today ( 7). Plan: 1. 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 Unstable angina ??? CAD (coronary artery disease) -Coronary Angio 07/29/2013: 65% (FFR 0.74) mid LAD lesion s/p PCI with 3.5 X 18 mm [facility]ACINDA - [place] 2009 post abnormal nuc stress +IW, EF [...] 1.0 Recent Labs 11/23/16 0624 11/22/16 1006 11/22/1635711/21/162031 NA 142 -- 142 145 [...] restenosis addressed with LAD stent angioplasty at [facility] in January 2014, DM2, HTN, dyslipidemia, continued tobacco use, and obesity transferred to [facility] for further evaluation of unstable angina. Cardiac catheterization anticipated tomorrow AM (11/24/16). Plan: 1. 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 Unstable angina ??? CAD (coronary artery disease) -Coronary Angio 07/29/2013: 65% (FFR 0.74) mid LAD lesion s/p PCI with 3.5 X 18 mm [facility]DA - [place] 2009 post abnormal nuc stress +IW, EF normal - Recurrent angina, CCS class III - Cardiac catheterization 06/03/2012: 2 vessel CAD (LAD and LCX), +FFR of both lesions s/p PCI to pOM1 (3.0 x 18 mm Xience JACINDA) and mLAD (3.0 x 20 mm Promus Element JAICNDA) ??? DM (diabetes mellitus) ??? HTN (hypertension) [...] 43 BILITOT 0.2 BILIDIR <0.1 Recent Labs 11/22/16 0358 11/21/162031 CALCIUM 8.8 9.2 Recent Labs 11/22/16 0358 [...] restenosis addressed with LAD stent angioplasty at [facility] in January 2014, DM2, HTN, dyslipidemia, continued tobacco use, and obesity transferred to [facility] for further evaluation of unstable angina. Cardiac catheterization anticipated soon. Plan: 1. Unstable angina LAD and LCx disease defined at prior cardiac catheterizations (at [facility] and [facility]) Describes crescendo anginal symptoms which have been [...] a 51 yr M ( Transferred from [place]) PMH of CAD - multiple PCIs in past, latest cath in January 2014 ( at [facility] ) JACINDA x2 to LAD, prior instent [...] last few days, yesterday had severe rest pain,04/02, lasting for 2-3 hrs, subsided s/p 2 NTG SL in ED. Symptoms reminiscent of his prior [place] / Unstable angina. Compliant with meds . [...] of Onset ??? Myocardial Infarction Father 46 [place], CABG ??? Diabetes Mother ??? Hypertension Mother [...] son (age 18 months), daughter 11 in [place], [place]. Takes care of his mother who has dementia and he takes her to dialysis. is disabled. Has grown daughter who is 29 years old. 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 Similar in character to prior [place] / UA; Nitrate responsive. ECG : nsr [...] in the outpatient cardiac rehabilitation program at [place] was discussed. Patient agrees to a referral [...] Nightly Drew Pepe MD 0.5 mg at 11/24/162107 ??? ranolazine (RANEXA) ext-release tablet 500 mg 500 mg Oral BID Drew Pepe MD 500 mg at 11/25/16 0900 ??? topiramate (TOPAMAX) tablet 50 mg 50 mg Oral Nightly Drew Pepe MD 50 mg at 11/24/162107 ??? gabapentin (NEURONTIN) capsule 900 mg 900 [...] of Onset ??? Myocardial Infarction Father 46 [place], CABG ??? Diabetes Mother ??? Hypertension Mother [...] his brain. TREATMENT PLAN/RECOMMENDATIONS: [X ] Provide [facility] Tobacco Cessation Packet Discuss and prescribe (if [...] 8-end 1 mg PO BID Refer to [place] [employer]uit [employer] e-referral placed X Refer to [place] 802 Quits (fill out and fax enrollment [...] Follow up: with his PCP and the [place] quitline, 802QUITS Patient not ready to quit at this time. Follow up: X It is strongly recommended that the patient be discharged to home on Tobacco Treatment medication(s) as recommended above and follow up with either PCP and/or Quit line [id number]-[id number]-NOW. X These recommendations have been discussed with the patient's primary team. DARCY STALEY APRN, CTTS-M Pager #[phone] [facility] Thoracic [facility] Time spent [...] Needs Assessment 11/22/16 0421 11/23/16 0312 11/24/16 0029 Discharge Needs Assessment Concerns To [...] Within the Past 30 Days: None at [facility], nor at outside hospitals, per pt's report. 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 I've been disabled for five years due to Fibromyalgia and Arthritis. Home Environment: Lives with his , Dasia in [place], [place]. Social & Family Supports/Community Resources: Dasia Coelho (Spouse) [address] [facility] [phone] (H) [phone] (M) Behavioral Health History: Per pt report, [...] Coverage: Yes, has Silver Script. Preferred Pharmacy: [id number] - [place], [place] - [address] [place] [address] ? [address] [facility] [address] ? Not a 24 hour pharmacy; exact hours not known Other: None Primary Care Provider: Coni Lim MD [phone] Patient/Caregiver Goals of Treatment: To return home and to his normal activities. Potential Needs for Transition of Care: Rehab/SNF: Pt has never been a pt in a rehab setting. Home Health: [facility] in the past (after right knee surgery). DME: Cane at home (doesn't consistently use it). Dialysis: N/A Community Resources: None Transportation: I may need RCT transportation. My car is in [facility] parking lot. I havethe only set of keys. Other: None Anticipated Barriers to Discharge/Special Considerations: No barriers noted at this time. Plan: A member of the Care Management team will continue to monitor progress, follow for continuity of care and assist with transition of care planning. SON MARLEY, RN Pager: [phone] * Plan of Care - Christy Medina [...] Assessment Outcome: Ongoing (Interventions Implemented as Appropriate) 11/24/169 Discharge Needs Assessment Concerns To Be Addressed no discharge needs identified Readmission Within The Last 30 Days no previous admission in last 30 days * Plan of Care - Esha Chen RN - 11/23/2016 12:33 PM EDT Problem: Patient Care Overview Goal: Plan of Care Review Outcome: Ongoing (Interventions Implemented as Appropriate) 11/22/16180011/23/16 0736 Plan of Care Review Progress progress [...] Handling Outcome: Ongoing (Interventions Implemented as Appropriate) 11/22/16194311/23/16 07 Gray Fall Risk History of Falling -- [...] Radiograph today, Echo and Cardiac Enzymes Pending Surveillance Director ? Thursday more likely Thursday (pt. Informed) [...] GOAL OUTCOME EVALUATION Cardiac/Telemetry Nursing Progress Note [id number] Subjective: Patient reports no s/s, mild SOB with ambulation Objective: Vital Signs: See Vital signs below Cardiac Meds: See online MAR Labs: See labs in online chart. Telemetry Report: 757: Intermittent SA, CT 0.17, QRS 0.08, RR 0.75, QT 0.35, [...] ability. Romeo Weineroney was offered copies of [facility] publications; Are You a Hospital Inpatient or Outpatient?and Medicare Rights and Protections. Notice has been signed along with date and time, a copy of notice made and given to patient/warehouse representative. Original notice to be scanned into [...] facilitated;fall prevention program maintained Goal: Infection Control 11/21/16 2000 Safety Interventions Isolation Precautions standard precautions maintained [...] Procedure Name Priority Date/Time Associated Diagnosis Comments REQUIREMENTS MANAGER SCAN 11/26/2016 12:00 AM EDT POCT GLUCOSE Routine 11/25/2016 7:42 AM EDT EKG 12-LEAD Routine 11/25/2016 7:23 AM EDT Unstable angina BMP W/FASTING GLUCOSE Routine 11/25/2016 4:52 AM EDT HEMOGRAM Routine 11/25/2016 4:52 AM EDT DIFFERENTIAL, AUTOMATED Routine 11/26/19 4:52 AM EDT CARDIAC ENZYMES ([facility]P) Routine 11/25/2016 4:52 AM EDT CBC (WITH [...] Routine 11/22/2016 7:45 PM EDT CARDIAC ENZYMES ([facility]/CGP) Routine 11/22/2016 5:11 PM EDT APTT STAT 11/22/2016 5:11 PM EDT POCT GLUCOSE Routine 11/22/2016 4:50 PM EDT ECHO COMPLETE W CONTRAST Routine 11/22/2016 12:59 PM EDT Unstable angina POCT GLUCOSE Routine 11/22/2016 12:11 PM EDT CARDIAC ENZYMES ([facility]/CGP) STAT 11/22/2016 10:06 AM EDT APTT Routine [...] 11/23/19 17 3:58 AM EDT CARDIAC ENZYMES ([facility]/CGP) Routine 11/22/2016 3:58 AM EDT APTT STAT 11/22/2016 3:58 AM EDT CBC (WITH DIFF) Routine 11/22/2016 3:58 AM EDT LIPID PANEL (REFLEX DIRECT LDL) Routine 11/22/2016 3:58 AM EDT EKG 12-LEAD STAT 11/21/2016 8:34 PM EDT Unstable angina HEMOGRAM STAT 11/21/2016 8:32 PM EDT DIFFERENTIAL, AUTOMATED STAT 11/22/19 17 8:32 PM EDT CARDIAC ENZYMES ([facility]/CGP) STAT 11/21/2016 8:32 PM EDT APTT STAT [...] in this encounter Results * SCAN DOC: REQUIREMENTS MANAGER (11/26/2016 12:00 AM EDT) Anatomical Region Laterality Modality Other Narrative 11/26/2016 12:00 AM EDT Ordered by an unspecified provider. Scanning Provider MEDIA MGR SCAN EXT O RDR/RSLT * POCT Glucose (11/25/2016 7:42 AM EDT) Glucose, POC 123 65 - 199 mg/dL [facility] Comment: Supplemental ranges: <140 mg/dL before meals <180 mg/dL all other times of the day Blood specimen (specimen) 11/25/2016 7:42 AM EDT 11/25/2016 7:42 AM EDT Roque Sanches MD POINT OF CARE TEST O RDERABLES Performing Organization Address [facility] Co de Phone Number [facility] [place] [place] [address] * EKG 12 Lead (11/25/2016 7:23 AM EDT) Ventricular rate 70 BPM MUSE SYSTEM Atrial Rate 70 BPM MUSE SYSTEM P-R Interval 140 ms MUSE SYSTEM QRS Duration 88 ms MUSE SYSTEM Q-T Interval 388 ms MUSE SYSTEM QTC Calculated (Bezet) 419 ms MUSE SYSTEM Calculated P [place] 3 degrees MUSE SYSTEM Calculated R [place] 19 degrees MUSE SYSTEM Calculated T [place] 42 degrees MUSE SYSTEM INTERPRETATION Normal sinus rhythm Normal ECG When compared with ECG of 24-NOV-2016 19:05, (unconfirmed) No significant change was found I personally reviewed the tracing and edited the fellows interpretation Confirmed by fellow MD Kalin, Nessa Lee ([id number]) on 11/25/2016 10:44:22 AM Confirmed by MD Meli, Tigre ([id number]) on 11/25/2016 5:24:33 PM MUSE SYSTEM 11/25/2016 7:23 AM EDT 11/25/2016 5:24 PM EDT Roque Sanches MD ECG ORDERABLES Performing Organization Address [facility] Co de Phone Number MUSE SYSTEM * Cardiac Enzymes (11/25/2016 4:52 AM EDT) Troponin-T <0.03 <=0.03 ng/mL [facility] Comment: 0.03 ng/mL: Represents the 99th percentile upper reference limit for normals. >0.03 ng/mL: Elevated cardiac troponin T level indicative of myocardial damage. Diagnosis of acute, evolving or recent [place] requires a typical rise and gradual fall [...] consensus document of the Joint Society of Cardiology/[place] College of Cardiology Committee for the redefinition of myocardial infarction. ??Journal of the [place] College of Cardiology 2000; 36: 959-969] Creatine Kinase 139 0 - 200 unit/L [facility] Comment:result rechecked-sb Blood specimen (specimen) Venous Draw / Unknown 11/25/2016 4:52 AM EDT 11/25/2016 5:41 AM EDT Narrative Resulting Agency Comment Spec In Lab Roque Sanches MD CHEMISTRY ORDERABLES [facility] [place] [address] * Differential, Automated (11/25/2016 4:52 AM EDT) Neutrophil % 61.6 % [facility] Neutrophil Absolute 5.56 1.70 - 6.10 x10(3)/[facility] Lymph % 26.8 % [facility] Lymphocytes Abs 2.4 0.9 - 3.2 x10(3)/[facility] Monocyte % 6.3 % [facility] Monocyte Abs 0.6 0.3 - 0.9 x10(3)/[facility] Eos % 4.1 % [facility] Eosinophils Abs 0.4 0.0 - 0.4 x10(3)/[facility] Basophil % 0.8 % [facility] Baso Absolute 0.1 0.0 - 0.1 x10(3)/[facility] Immature Gran % 0.40 % [facility] Comment: Immature granulocytes(IG's)percentage and absolute count will include metamyelocytes, myelocytes, and promyelocytes. Blood smears from CBCs yielding IG's will be scanned manually for concordance. If this scan disagrees with the automated IG or if promyelocytes are noted, a manual differential will be performed. Immature Gran Absolute 0.04 0.00 - 0.04 x10(3)/[facility] Blood specimen (specimen) 11/25/2016 4:52 AM EDT 11/25/2016 5:37 AM EDT Narrative Resulting Agency Comment Spec In Lab Roque Sanches MD HEMATOLOGY ORDERABLE S [facility] [place] [address] * (ABNORMAL) Hemogram (11/25/2016 4:52 AM EDT) White Blood Cell 9.0 4.0 - 9.5 x10(3)/[facility] LABORATORY Red Blood Cell 5.04 4.58 - 5.54 x10(6)/[facility] Hemoglobin 14.5 13.7 - 16.5 gm/dL [facility] Hematocrit 44.2 40.5 - 48.5 % [facility] Mean Cell Volume 87.7 82.9 - 93.1 [facility] Mean Cell Hemoglobin 28.8 27.5 - 32.1 pg [facility] Mean Cell Hemoglobin Concentration 32.8 32.0 - 35.7 gm/dL [facility] Platelet 214 145 - 357 x10(3)/[facility]ATORY RDW Standard Deviation 45.1(H) 36.0 - 45.0 [facility] RDW coefficient of variation 14.0(H) 11.4 - 13.8 % [facility] Mean Platelet Volume 11.1 7.6 - 12.9 [facility] LABOR[facility]ORY NRBC% auto 0.0 % [facility] NRBC Absolute 0.000 0.000 - 0.000 x10(3)/[facility] Blood specimen (specimen) 11/25/2016 4:52 AM EDT 11/25/2016 5:37 AM EDT Narrative Resulting Agency Comment Spec In Lab Roque Sanches MD HEMATOLOGY ORDERABLE S [facility] [place] [address] * (ABNORMAL) BMP w/fasting Glucose (11/25/2016 4:52 AM EDT) Glucose Fasting 113(H) 65 - 99 mg/dL [facility] Comment: ?Fasting* Glucose Interpretive [...] of Diabetes Mellitus, Position Statement from the [place] Diabetes Association. ??Diabetes Care, Volume 33, Supplement 1, Aug 2009 Blood Urea Nitrogen 10 10 - 20 mg/dL [facility] Creatinine 0.87 0.80 - 1.50 mg/dL [facility] Comment: Please note that the pediatric reference intervals supplied above were not validated at [facility] [facility]. Results from pediatric patients should be interpreted in conjunction to the patient's age, height and muscle mass. Sodium 142 135 - 145 mmol/L [facility] Potassium 3.9 3.5 - 5.0 mmol/L [facility] Comment: Please note: ??Patients with WBC >100,000 may have falsely elevated Potassium levels. ??For accurate Potassium quantification in these patients send serum separator tube (gold top) for subsequent determinations. ??Contact the Clinical Chemistry Laboratory if there are any questions. Chloride 108(H) 98 - 107 mmol/L [facility] Carbon Dioxide 19(L) 22 - 31 mmol/L [facility] Anion Gap 15 5 - 15 mmol/L [facility] Calcium 9.5 8.5 - 10.5 mg/dL [facility] Est Glomerular Filtration Rate >60 >=60 [facility] Comment: This estimated GFR (eGFR) [...] the following links into your internet browser. [email or web address] Blood specimen (specimen) 11/25/2016 4:52 AM EDT 11/25/2016 5:37 AM EDT Narrative Resulting Agency Comment Spec In Lab Roque Sanches MD CHEMISTRY ORDERABLES Performing Organization Address [facility] Co de Phone Number [facility] [place] [address] * EKG 12 Lead (11/24/2016 7:05 PM EDT) Ventricular rate 85 BPM MUSE SYSTEM Atrial Rate 85 BPM MUSE SYSTEM P-R Interval 152 ms MUSE SYSTEM QRS Duration 86 ms MUSE SYSTEM Q-T Interval 354 ms MUSE SYSTEM QTC Calculated (Bezet) 421 ms MUSE SYSTEM Calculated P [place] 55 degrees MUSE SYSTEM Calculated R [place] 44 degrees MUSE SYSTEM Calculated T [place] 40 degrees MUSE SYSTEM INTERPRETATION Normal sinus rhythm Normal ECG When compared with ECG of 24-NOV-2016 07:20, No significant change was found Confirmed by Wale Mckeon MD ([id number]) on 11/25/2016 4:12:17 PM MUSE SYSTEM 11/24/2016 7:05 PM EDT 11/25/2016 4:12 PM EDT Roque Sanches MD ECG ORDERABLES MUSE SYSTEM * CARDIAC CATHETERIZATION (11/24/2016 6:04 PM EDT) Anatomical Region Laterality Modality Other Narrative 11/24/2016 6:23 PM EDT ?[facility] ? Cardiac Catheterization/Intervention Report ? Patient Name: Coelho, Romeo A. ? Procedure Date: 11/24/2016 ? A #: [id number] ? Primary Physician: Anton Horvath ? Case #: [id number] ? File Name: [id number] ? Catheterization Order Number: [id number] ? [facility] ? Final Report [place], [place] ? Patient Name: ? Romeo Coelho ? ID#: ?[id number] ? : ?1965 ? Procedure Date: ? November 24, 2016 ?Case #: ? [id number] ? Room: ? 6 ? Case Physician: ? Anton Horvath MAshley ?Start: ?17:26 ?Fellow: ? Katia Quiroz M.D. ? Admission: ??11/24/2016 ? Referring ? Reid Churchill M.D. ? Physicians: ?Coni Lim M.D. ? Procedures: ?* Coronary Angiography [...] presented with: unstable angina (w/i 60 days). [place] ?Cardiovascular Society angina class was III. 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 ? Comments: ?Classic anginal [...] Procedure Note Anton Horvath MD - 11/25/2016 [facility] Cardiac Catheterization/Intervention Report Patient Name: Coelho Romeo PopNatalie Procedure Date: 11/24/2016 A #: [id number] Primary Physician: Anton Horvath Case #: [id number] File Name: [id number] Catheterization Order Number: [id number] [facility] FinalReport [place], [place] Patient Name: Romeo Coelho ID#:[id number] :1965 Procedure Date: November 24, 2016 Case #: [id number] Room: 6 Case Physician: Anton Horvath M.D. Start: 17:26 Fellow: Katia Quiroz M.D. Admission:11/24/2016 Referring Reid Churchill M.D. Physicians: oCni Lim M.D. Procedures: * Coronary Angiography * [...] presented with: unstable angina (w/i 60 days). [place] [employer] Society angina class was III. This [...] time was 8.0 minutes, dose area product [id number] and air kerma was 1,689 mGY. 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 Comments: Classic anginal symptoms [...] Glucose, POC 88 65 - 199 mg/dL [facility] Comment: Supplemental ranges: <140 mg/dL before meals <180 mg/dL all other times of the day Blood specimen (specimen) 11/24/2016 4:27 PM EDT 11/24/2016 4:27 PM EDT Roque Sanches MD POINT OF CARE TEST O RDERABLES [facility] [place] [address] * POCT Glucose (11/24/2016 11:56 AM EDT) Glucose, POC 110 65 - 199 mg/dL [facility] Comment: Supplemental ranges: <140 mg/dL before meals <180 mg/dL all other times of the day Blood specimen (specimen) 11/24/2016 11:56 AM EDT 11/24/2016 11:56 AM EDT Roque Sanches MD POINT OF CARE TEST O RDERAAIRAM Performing Organization Address [facility] Co de Phone Number [facility] [place] [address] * POCT Glucose (11/24/2016 7:43 AM EDT) Glucose, POC 131 65 - 199 mg/dL [facility] Comment: Supplemental ranges: <140 mg/dL before meals <180 mg/dL all other times of the day Blood specimen (specimen) 11/24/2016 7:43 AM EDT 11/24/2016 7:43 AM EDT Roque Sanches MD POINT OF CARE TEST O RDERABLES Performing Organization Address [facility] Co de Phone Number [facility] [place] [address] * EKG 12 Lead (11/24/2016 7:20 AM EDT) Ventricular rate 65 BPM MUSE SYSTEM Atrial Rate 65 BPM MUSE SYSTEM P-R Interval 158 ms MUSE SYSTEM QRS Duration 90 ms MUSE SYSTEM Q-T Interval 396 ms MUSE SYSTEM QTC Calculated (Bezet) 411 ms MUSE SYSTEM Calculated P [place] 51 degrees MUSE SYSTEM Calculated R [place] 26 degrees MUSE SYSTEM Calculated T [place] 24 degrees MUSE SYSTEM INTERPRETATION Normal sinus rhythm Normal ECG When compared with ECG of 23-NOV-2016 07:16, No significant change was found I personally reviewed the tracing and edited the fellows interpretation Confirmed by fellow MD Kalin, Nessa Lee ([id number]) on 11/24/2016 8:23:27 AM Confirmed by MD Margoth, Rajni ([id number]) on 11/24/2016 6:22:34 PM MUSE SYSTEM 11/24/2016 7:20 AM EDT 11/24/2016 6:22 PM EDT Roque Sanches MD ECG ORDERABLES MUSE SYSTEM * (ABNORMAL) Differential, Automated (11/24/2016 6:20 AM EDT) Neutrophil % 54.5 % [facility] Neutrophil Absolute 4.85 1.70 - 6.10 x10(3)/[facility] Lymph % 31.5 % [facility] Lymphocytes Abs 2.8 0.9 - 3.2 x10(3)/[facility] Monocyte % 8.1 % [facility] Monocyte Abs 0.7 0.3 - 0.9 x10(3)/[facility] Eos % 4.4 % [facility] Eosinophils Abs 0.4 0.0 - 0.4 x10(3)/[facility] Basophil % 0.9 % [facility] Baso Absolute 0.1 0.0 - 0.1 x10(3)/[facility] Immature Gran % 0.60 % [facility] Comment: Immature granulocytes(IG's)percentage and absolute count will include metamyelocytes, myelocytes, and promyelocytes. Blood smears from CBCs yielding IG's will be scanned manually for concordance. If this scan disagrees with the automated IG or if promyelocytes are noted, a manual differential will be performed. Immature Gran Absolute 0.05(H) 0.00 - 0.04 x10(3)/[facility] Blood specimen (specimen) 11/24/2016 6:20 AM EDT 11/24/2016 6:34 AM EDT Narrative Resulting Agency Comment Spec In Lab Drew Pepe MD HEMATOLOGY ORDERABLE S [facility] [place] [address] * (ABNORMAL) Hemogram (11/24/2016 6:20 AM EDT) White Blood Cell 8.9 4.0 - 9.5 x10(3)/ L [facility] Red Blood Cell 4.93 4.58 - 5.54 x10(6)/ L [facility] Hemoglobin 14.7 13.7 - 16.5 gm/dL [facility] Hematocrit 43.2 40.5 - 48.5 % [facility] Mean Cell Volume 87.6 82.9 - 93.1 fL [facility] Mean Cell Hemoglobin 29.8 27.5 - 32.1 pg [facility] Mean Cell Hemoglobin Concentration 34.0 32.0 - 35.7 gm/dL [facility] Platelet 203 145 - 357 x10(3)/[facility] RDW Standard Deviation 44.3 36.0 - 45.0 [facility] RDW coefficient of variation 13.9(H) 11.4 - 13.8 % [facility] Mean Platelet Volume 11.0 7.6 - 12.9 [facility] NRBC% auto 0.0 % [facility] NRBC Absolute 0.000 0.000 - 0.000 x10(3)/[facility] Blood specimen (specimen) 11/24/2016 6:20 AM EDT 11/24/2016 6:34 AM EDT Narrative Resulting Agency Comment Spec In Lab Drew Pepe MD HEMATOLOGY ORDERABLE S [facility] [address] * (ABNORMAL) APTT (11/24/2016 6:20 AM EDT) [facility] Signature Partial Thromboplastin Time 110(H) 25 - 35 sec [facility] Comment: The recommended therapeutic range for full dose, unfractionated heparin at [facility] is 80 ? 114 seconds. The use of the anti-Xa (heparin) level rather than the PTT is recommended for monitoring anticoagulation intensity in critically ill patients receiving unfractionated heparin by continuous IV infusion. Blood specimen (specimen) 11/24/2016 6:20 AM EDT 11/24/2016 6:34 AM EDT Narrative Resulting Agency Comment Spec In Lab Drew Pepe MD HEMATOLOGY ORDERABLE S Performing Organization Address City/[facility] Hospital/ZIP Co de Phone Number [facility] [address] * (ABNORMAL) APTT (11/23/2016 11:27 PM EDT) Partial Thromboplastin Time 130(H) 25 - 35 sec [facility] Comment: The recommended therapeutic range for full dose, unfractionated heparin at [facility] is 80 ? 114 seconds. The use of the anti-Xa (heparin) level rather than the PTT is recommended for monitoring anticoagulation intensity in critically ill patients receiving unfractionated heparin by continuous IV infusion. Blood specimen (specimen) 11/23/2016 11:27 PM EDT 11/23/2016 11:30 PM EDT Narrative Resulting Agency Comment Spec In Lab Drew Pepe MD HEMATOLOGY ORDERABLE S Performing Organization Address [facility]/ZIP Co de Phone Number [facility] [address] * POCT Glucose (11/23/2016 7:36 PM EDT) Glucose, POC 131 65 - 199 mg/dL [facility] Comment: Supplemental ranges: <140 mg/dL before meals <180 mg/dL all other times of the day Blood specimen (specimen) 11/23/2016 7:36 PM EDT 11/23/2016 7:36 PM EDT Roque Sanches MD POINT OF CARE TEST O RDERABLES Performing Organization Address City/[facility]/ZIP Co de Phone Number [facility] [address] * POCT Glucose (11/23/2016 5:20 PM EDT) Glucose, POC 107 65 - 199 mg/dL [facility] Comment: Supplemental ranges: <140 mg/dL before meals <180 mg/dL all other times of the day Blood specimen (specimen) 11/23/2016 5:20 PM EDT 11/23/2016 5:20 PM EDT Roque Sanches MD POINT OF CARE TEST O RDERABLES Performing Organization Address [facility] Co de Phone Number [facility] [address] * (ABNORMAL) APTT (11/23/2016 12:39 PM EDT) [facility] Partial Thromboplastin Time 68(H) 25 - 35 sec [facility] Comment: The recommended therapeutic range for full dose, unfractionated heparin at [facility] is 80 ? 114 seconds. The use of the anti-Xa (heparin) level rather than the PTT is recommended for monitoring anticoagulation intensity in critically ill patients receiving unfractionated heparin by continuous IV infusion. Blood specimen (specimen) 11/23/2016 12:39 PM EDT 11/23/2016 12:51 PM EDT Narrative Resulting Agency Comment Spec In Lab Roque Sanches MD HEMATOLOGY ORDERABLE S Performing Organization Address [facility] Co de Phone Number [facility] [address] * POCT Glucose (11/23/2016 11:47 AM EDT) Glucose, POC 116 65 - 199 mg/dL [facility] Comment: Supplemental ranges: <140 mg/dL before meals <180 mg/dL all other times of the day Blood specimen (specimen) 11/23/2016 11:47 AM EDT 11/23/2016 11:47 AM EDT Roque Sanches MD POINT OF CARE TEST O RDERABLES Performing Organization Address [facility]/ZIP Co de Phone Number [facility] [place] [address] * POCT Glucose (11/23/2016 7:36 AM EDT) Glucose, POC 122 65 - 199 mg/dL [facility] Comment: Supplemental ranges: <140 mg/dL before meals <180 mg/dL all other times of the day Blood specimen (specimen) 11/23/2016 7:36 AM EDT 11/23/2016 7:36 AM EDT Roque Sanches MD POINT OF CARE TEST O RDERABLES Performing Organization Address [facility] de Phone Number [facility] [place] [address] * EKG 12 Lead (11/23/2016 7:16 AM EDT) Ventricular rate 72 BPM MUSE SYSTEM Atrial Rate 72 BPM MUSE SYSTEM P-R Interval 158 ms MUSE SYSTEM QRS Duration 90 ms MUSE SYSTEM Q-T Interval 382 ms MUSE SYSTEM QTC Calculated (Bezet) 418 ms MUSE SYSTEM Calculated P [place] 47 degrees MUSE SYSTEM Calculated R [place] 28 degrees MUSE SYSTEM Calculated T [place] 32 degrees MUSE SYSTEM INTERPRETATION Normal sinus rhythm Normal ECG When compared with ECG of 22-NOV-2016 07:12, No significant change was found Confirmed by MD ANIVAL, DEBORAH ([id number]) on 11/23/2016 1:58:05 PM MUSE SYSTEM 11/23/2016 7:16 AM EDT 11/23/2016 1:58 PM EDT Roque Sanches MD ECG ORDERABLES Performing Organization Address [facility] Co de Phone Number MUSE SYSTEM * (ABNORMAL) BMP w/fasting Glucose (11/23/2016 6:24 AM EDT) Glucose Fasting 143(H) 65 - 99 mg/dL [facility] Comment: ?Fasting* Glucose Interpretive [...] of Diabetes Mellitus, Position Statement from the [place] [employer]. ??Diabetes Care, Volume 33, Supplement 1, Aug 2009 Blood Urea Nitrogen 10 10 - 20 mg/dL [facility] Creatinine 0.98 0.80 - 1.50 mg/dL [facility] Comment: Please note that the pediatric reference intervals supplied above were not validated at [facility]. Results from pediatric patients should be interpreted in conjunction to the patient's age, height and muscle mass. Sodium 142 135 - 145 mmol/L [facility] Potassium 3.9 3.5 - 5.0 mmol/L [facility] Comment: Please note: ??Patients with WBC >100,000 may have falsely elevated Potassium levels. ??For accurate Potassium quantification in these patients send serum separator tube (gold top) for subsequent determinations. ??Contact the Clinical Chemistry Laboratory if there are any questions. Chloride 106 98 - 107 mmol/L [facility] Carbon Dioxide 20(L) 22 - 31 mmol/L [facility] Anion Gap 16(H) 5 - 15 mmol/L [facility] Calcium 9.6 8.5 - 10.5 mg/dL [facility] Est Glomerular Filtration Rate >60 >=60 [facility] Comment: This estimated GFR (eGFR) [...] the following links into your internet browser. [email or web address] Blood specimen (specimen) 11/23/2016 6:24 AM EDT 11/23/2016 6:32 AM EDT Narrative Resulting Agency Comment Spec In Lab Roque Sanches MD CHEMISTRY ORDERABLES Performing Organization Address [facility] Co de Phone Number [facility] [address] * (ABNORMAL) APTT (11/23/2016 6:24 AM EDT) Pathologist [facility] Partial Thromboplastin Time 103(H) 25 - 35 sec [facility] Comment: The recommended therapeutic range for full dose, unfractionated heparin at [facility] is 80 ? 114 seconds. The use of the anti-Xa (heparin) level rather than the PTT is recommended for monitoring anticoagulation intensity in critically ill patients receiving unfractionated heparin by continuous IV infusion. Blood specimen (specimen) 11/23/2016 6:24 AM EDT 11/23/2016 6:32 AM EDT Narrative Resulting Agency Comment Spec In Lab Drew Pepe MD HEMATOLOGY ORDERABLE S Performing Organization Address [facility] Co de Phone Number [facility] [place] [address] * Differential, Automated (11/23/2016 6:24 AM EDT) [facility] Neutrophil % 58.2 % [facility] Neutrophil Absolute 4.63 1.70 - 6.10 x10(3)/[facility] Lymph % 29.0 % [facility] Lymphocytes Abs 2.3 0.9 - 3.2 x10(3)/[facility] Monocyte % 7.3 % [facility] Monocyte Abs 0.6 0.3 - 0.9 x10(3)/[facility] Eos % 4.1 % [facility] Eosinophils Abs 0.3 0.0 - 0.4 x10(3)/[facility] Basophil % 1.0 % [facility] Baso Absolute 0.1 0.0 - 0.1 x10(3)/[facility] Immature Gran % 0.40 % [facility] Comment: Immature granulocytes(IG's)percentage and absolute count will include metamyelocytes, myelocytes, and promyelocytes. Blood smears from CBCs yielding IG's will be scanned manually for concordance. If this scan disagrees with the automated IG or if promyelocytes are noted, a manual differential will be performed. Immature Gran Absolute 0.03 0.00 - 0.04 x10(3)/[facility] Blood specimen (specimen) 11/23/2016 6:24 AM EDT 11/23/2016 6:32 AM EDT Narrative Resulting Agency Comment Spec In Lab Drew Pepe MD HEMATOLOGY ORDERABLE S [facility] [address] * (ABNORMAL) Hemogram (11/23/2016 6:24 AM EDT) White Blood Cell 8.0 4.0 - 9.5 x10(3)/[facility] Red Blood Cell 5.00 4.58 - 5.54 x10(6)/[facility] Hemoglobin 14.5 13.7 - 16.5 gm/dL [facility] Hematocrit 43.1 40.5 - 48.5 % [facility] Mean Cell Volume 86.2 82.9 - 93.1 fL [facility] Mean Cell Hemoglobin 29.0 27.5 - 32.1 pg [facility] Mean Cell Hemoglobin Concentration 33.6 32.0 - 35.7 gm/dL [facility] Platelet 207 145 - 357 x10(3)/[facility] RDW Standard Deviation 44.5 36.0 - 45.0 [facility] RDW coefficient of variation 14.0(H) 11.4 - 13.8 % [facility] Mean Platelet Volume 10.4 7.6 - 12.9 fL [facility] NRBC% auto 0.0 % [facility] NRBC Absolute 0.000 0.000 - 0.000 x10(3)/mc L [facility] Blood specimen (specimen) 11/23/2016 6:24 AM EDT 11/23/2016 6:32 AM EDT Narrative Resulting Agency Comment Spec In Lab Drew Pepe MD HEMATOLOGY ORDERABLE S Performing Organization Address [facility]/ZIP Co de Phone Number [facility] [place] [address] * (ABNORMAL) APTT (11/23/2016 12:03 AM EDT) Partial Thromboplastin Time 116(H) 25 - 35 sec [facility] Comment: The recommended therapeutic range for full dose, unfractionated heparin at [facility] is 80 ? 114 seconds. The use of the anti-Xa (heparin) level rather than the PTT is recommended for monitoring anticoagulation intensity in critically ill patients receiving unfractionated heparin by continuous IV infusion. Blood specimen (specimen) 11/23/2016 12:03 AM EDT 11/23/2016 12:07 AM EDT Narrative Resulting Agency Comment Spec In Lab Drew Pepe MD HEMATOLOGY ORDERABLE S Performing Organization Address [facility] Co de Phone Number [facility] [address] * POCT Glucose (11/22/2016 7:45 PM EDT) Glucose, POC 102 65 - 199 mg/dL [facility] Comment: Supplemental ranges: <140 mg/dL before meals <180 mg/dL all other times of the day Blood specimen (specimen) 11/22/2016 7:45 PM EDT 11/22/2016 7:45 PM EDT Roque Sanches MD POINT OF CARE TEST O RDERABLES Performing Organization Address City/State/[facility] Co de Phone Number [facility] [address] * Cardiac Enzymes (11/22/2016 5:11 PM EDT) [facility] Signature Troponin-T <0.03 <=0.03 ng/mL [facility] Comment: 0.03 ng/mL: Represents the 99th percentile upper reference limit for normals. >0.03 ng/mL: Elevated cardiac troponin T level indicative of myocardial damage. Diagnosis of acute, evolving or recent OH requires a typical rise and gradual fall [...] consensus document of the Joint Society of Cardiology/[place] [employer] Committee for the redefinition of myocardial infarction. ??Journal of the [place] College of [employer]iology 2000; 36: 959-969] Creatine Kinase 46 0 - 200 unit/L [facility] Blood specimen (specimen) 11/22/2016 5:11 PM EDT 11/22/2016 5:15 PM EDT Narrative Resulting Agency Comment Spec In Lab Roque Sanches MD CHEMISTRY ORDERABLES Performing Organization Address [facility] Co de Phone Number [facility] [address] * (ABNORMAL) APTT (11/22/2016 5:11 PM EDT) [facility] Partial Thromboplastin Time 76(H) 25 - 35 sec [facility] Comment: The recommended therapeutic range for full dose, unfractionated heparin at [facility] is 80 ? 114 seconds. The use of the anti-Xa (heparin) level rather than the PTT is recommended for monitoring anticoagulation intensity in critically ill patients receiving unfractionated heparin by continuous IV infusion. Blood specimen (specimen) 11/22/2016 5:11 PM EDT 11/22/2016 5:15 PM EDT Narrative Resulting Agency Comment Spec In Lab Drew Pepe MD HEMATOLOGY ORDERABLE S Performing Organization Address [facility] Co de Phone Number [facility] [place] [address] * POCT Glucose (11/22/2016 4:50 PM EDT) Glucose, POC 100 65 - 199 mg/dL [facility] Comment: Supplemental ranges: <140 mg/dL before meals <180 mg/dL all other times of the day Blood specimen (specimen) 11/22/2016 4:50 PM EDT 11/22/2016 4:50 PM EDT Roque Sanches MD POINT OF CARE TEST O RDERABLES Performing Organization Address [facility]/ZIP Co de Phone Number [facility] [place] [address] * ECHO COMPLETE W CONTRAST (11/22/2016 12:59 PM EDT) EF 60 HEARTLAB SYSTEM Anatomical Region Laterality Modality Other 11/22/2016 Narrative 11/22/2016 1:38 PM EDT Procedure: ?Transthoracic Echocardiogram Patient: ?COELHO ROMEO A ? (Age): 1965(51y) Med Rec#: ? [id number] ?Sex: ?M ? Site Loc: ? [facility] ?Ht / Wt: ??178(cm)/95(kg) Pt. Loc: ?Adult Floor ? BSA: ?2.13 Study Date: ?? 11/22/2016 ?Pt. Type: Inpatient Tape: ? Referring: Roque Sanches ([id number]) Reading: Roque Sanches ([id number]) Associate Entertainment Editor: Jorge A Street Diagnosis: *ICD-10-PCS Unstable angina (I20.0) CPT Codes: *Echo Full (63768) *Spectral Doppler (10541) *Color Doppler (46229) *Optison ([id number]) Rhythm: ? Sinus BP: ? 113/70 SUMMARY: [...] E-wave Vmax ?0.5 ?m/sec ? MV deceleration [id number] ?msec ? MV A-wave Vmax ?0.4 ?m/sec [...] ? Mid-Inferior ?Normal ? Mid-Inferoseptal ?Normal ? [place]-Septal ? Normal ? [place]-Anterior ? Normal ? [place]-Lateral ?Normal ? [place]-Inferior ? Normal ? [place]-Tip ?Normal ? This report has been electronically signed by: Roque Sanches M.D. ? 11/22/2016 13:38:29 Images reviewed and interpretation verified [facility] Procedure Note Roque Sanches MD - 11/22/2016 Procedure: Transthoracic Echocardiogram Patient: LAQUITA Pop DOB(Age): 1965(51y) Med Rec#: [id number] Sex: M Site Loc: [facility] Ht / Wt: 178(cm)/95(kg) Pt. Loc: Adult Floor BSA: 2.13 Study Date: 11/22/2016 Pt. Type: Inpatient Tape: Referring: Roque Sanches ([id number]) Reading: Roque Sanches () Associate Entertainment Editor: Jorge A Street Diagnosis: *ICD-10-PCS Unstable angina (I20.0) CPT Codes: *Echo Full (94623) *Spectral Doppler (43286) *Color Doppler (58402) *Optison ([id number]) Rhythm: Sinus BP: 113/70 SUMMARY: 1. The [...] MV E-wave Vmax 0.5 m/sec MV deceleration [id number] msec MV A-wave Vmax 0.4 m/sec MV [...] Hypokinetic Mid-Posterolateral Hypokinetic Mid-Inferior Normal Mid-Inferoseptal Normal [place]-Septal Normal [place]-Anterior Normal [place]-Lateral Normal [place]-Inferior Normal [place]-Tip Normal This report has been electronically signed by: Roque Sanches M.D. 11/22/2016 13:38:29 Images reviewed and interpretation verified [facility] Drew Pepe MD ECHO ORDERABLES * POCT Glucose (11/22/2016 12:11 PM EDT) Glucose, POC 94 65 - 199 mg/dL [facility] Comment: Supplemental ranges: <140 mg/dL before meals <180 mg/dL all other times of the day Blood specimen (specimen) 11/22/2016 12:11 PM EDT 11/22/2016 12:11 PM EDT Roque Sanches MD POINT OF CARE TEST O RDERABLES Performing Organization Address [facility] Co de Phone Number [facility] [place] [address] * Potassium (11/22/2016 10:06 AM EDT) Potassium 3.8 3.5 - 5.0 mmol/L [facility] Comment: Please note: ??Patients [...] Pepe MD CHEMISTRY ORDERABLES Performing Organization Address [facility] Co de Phone Number [facility] [place] [address] * Cardiac Enzymes (11/22/2016 10:06 AM EDT) Troponin-T <0.03 <=0.03 ng/mL [facility] Comment: 0.03 ng/mL: Represents the 99th percentile upper reference limit for normals. >0.03 ng/mL: Elevated cardiac troponin T level indicative of myocardial damage. Diagnosis of acute, evolving or recent [place] requires a typical rise and gradual fall [...] consensus document of the Joint Society of Cardiology/[place] College of Cardiology Committee for the redefinition of myocardial infarction. ??Journal of the [place] College of Cardiology 2000; 36: 959-969] Creatine Kinase 48 0 - 200 unit/L [facility] Blood specimen (specimen) 11/22/2016 10:06 AM EDT 11/22/2016 10:16 AM EDT Narrative Resulting Agency Comment Spec In Lab Drew Pepe MD CHEMISTRY ORDERABLES Performing Organization Address [facility] Co de Phone Number [facility] [address] * (ABNORMAL) APTT (11/22/2016 10:06 AM EDT) [facility] Partial Thromboplastin Time 104(H) 25 - 35 sec [facility] Comment: The recommended therapeutic range for full dose, unfractionated heparin at [facility] is 80 ? 114 seconds. The use of the anti-Xa (heparin) level rather than the PTT is recommended for monitoring anticoagulation intensity in critically ill patients receiving unfractionated heparin by continuous IV infusion. Blood specimen (specimen) 11/22/2016 10:06 AM EDT 11/22/2016 10:16 AM EDT Narrative Resulting Agency Comment Spec In Lab Roque Sanches MD HEMATOLOGY ORDERABLE S Performing Organization Address [facility] de Phone Number [facility] [place] [address] * XR Chest PA & Lateral (Generic) [...] sharp. Procedure Note Christos Vogel MD - 04/01/2017 EXAMINATION: XR CHEST PA AND LATERAL (GENERIC) [...] Glucose, POC 135 65 - 199 mg/dL [facility] Comment: Supplemental ranges: <140 mg/dL before meals <180 mg/dL all other times of the day Blood specimen (specimen) 11/22/2016 7:44 AM EDT 11/22/2016 7:44 AM EDT Roque Sanches MD POINT OF CARE TEST O RDERABLES Performing Organization Address [facility] Co de Phone Number [facility] [place] [address] * EKG 12 Lead (11/22/2016 7:12 AM EDT) Ventricular rate 74 BPM MUSE SYSTEM Atrial Rate 74 BPM MUSE SYSTEM P-R Interval 146 ms MUSE SYSTEM QRS Duration 92 ms MUSE SYSTEM Q-T Interval 382 ms MUSE SYSTEM QTC Calculated (Bezet) 424 ms MUSE SYSTEM Calculated P [place] 34 degrees MUSE SYSTEM Calculated R [place] 26 degrees MUSE SYSTEM Calculated T [place] 27 degrees MUSE SYSTEM INTERPRETATION Normal sinus rhythm Normal ECG When compared with ECG of 21-NOV-2016 20:34, (unconfirmed) No significant change was found Confirmed by MD Walton Douglas (57) on 11/22/2016 10:51:21 AM MUSE SYSTEM 11/22/2016 7:12 AM EDT 11/22/2016 10:51 AM EDT Roque Sanches MD ECG ORDERABLES Performing Organization Address City/[facility]/ZIP Co de Phone Number MUSE SYSTEM * (ABNORMAL) Lipid Panel (11/22/2016 3:58 AM EDT) Cholesterol, Total 125 <=239 mg/dL [facility] Triglyceride 171 <=199 mg/dL [facility] HDL Cholesterol 39(L) >=40 mg/dL [facility] LDL Cholesterol 52 <=190 mg/dL [facility] Cholesterol/HDL Ratio 3.2 ratio [facility] Lipid Interpretation See Note [facility] Comment: Lipid management should be guided by a patient? s ASCVD risk, goals and preferences. ACC/AHA Guidelines recommend high intensity statin if clinical ASCVD or LDL greater than or equal to 190 mg/dL. http://circ.ahajournals.org/content/early/.cir.8076740895.78319.7a Adults aged 40-75 with LDL 70-189 mg/dL should have their 10 year ASCVD risk estimated with the ACC/AHA ASCVD risk inspector repairer http://tools.acc.org/VJVQM-Oklu-Ocummefhq/ Statin should be discussed if risk greater [...] In Lab Roque Sanches MD CHEMISTRY ORDERABLES [facility] [place] [address] * Cardiac Enzymes (11/22/2016 3:58 AM EDT) Troponin-T <0.03 <=0.03 ng/mL [facility] Comment: 0.03 ng/mL: Represents the 99th percentile upper reference limit for normals. >0.03 ng/mL: Elevated cardiac troponin T level indicative of myocardial damage. Diagnosis of acute, evolving or recent [place] requires a typical rise and gradual fall [...] consensus document of the Joint Society of Cardiology/[place] College of Cardiology Committee for the redefinition of myocardial infarction. ??Journal of the [place] College of Cardiology 2000; 36: 959-969] Creatine Kinase 50 0 - 200 unit/L [facility] Blood specimen (specimen) Venous Draw / Unknown 11/22/2016 3:58 AM EDT 11/22/2016 4:13 AM EDT Narrative Resulting Agency Comment Spec In Lab Roque Sanches MD CHEMISTRY ORDERABLES [facility] [place] [address] * Differential, Automated (11/22/2016 3:58 AM EDT) Neutrophil % 56.6 % [facility] Neutrophil Absolute 4.86 1.70 - 6.10 x10(3)/[facility] Lymph % 30.3 % [facility] Lymphocytes Abs 2.6 0.9 - 3.2 x10(3)/[facility] Monocyte % 7.7 % [facility] Monocyte Abs 0.7 0.3 - 0.9 x10(3)/[facility] Eos % 4.5 % [facility] Eosinophils Abs 0.4 0.0 - 0.4 x10(3)/[facility] Basophil % 0.6 % [facility] Baso Absolute 0.0 0.0 - 0.1 x10(3)/[facility] Immature Gran % 0.30 % [facility] Comment: Immature granulocytes(IG's)percentage and absolute count will include metamyelocytes, myelocytes, and promyelocytes. Blood smears from CBCs yielding IG's will be scanned manually for concordance. If this scan disagrees with the automated IG or if promyelocytes are noted, a manual differential will be performed. Immature Gran Absolute 0.03 0.00 - 0.04 x10(3)/[facility] Blood specimen (specimen) 11/22/2016 3:58 AM EDT 11/22/2016 4:13 AM EDT Narrative Resulting Agency Comment Spec In Lab Roque Sanches MD HEMATOLOGY ORDERABLE S Performing Organization Address City/State/[facility] Co de Phone Number [facility] [address] * (ABNORMAL) Hemogram (11/22/2016 3:58 AM EDT) White Blood Cell 8.6 4.0 - 9.5 x10(3)/[facility]AT[facility] Red Blood Cell 4.80 4.58 - 5.54 x10(6)/[facility] Hemoglobin 13.8 13.7 - 16.5 gm/dL [facility] Hematocrit 41.9 40.5 - 48.5 % [facility] Mean Cell Volume 87.3 82.9 - 93.1 fL [facility] Mean Cell Hemoglobin 28.8 27.5 - 32.1 pg [facility] Mean Cell Hemoglobin Concentration 32.9 32.0 - 35.7 gm/dL [facility] Platelet 219 145 - 357 x10(3)/[facility] RDW Standard Deviation 44.7 36.0 - 45.0 fL [facility] RDW coefficient of variation 14.0(H) 11.4 - 13.8 % [facility] Mean Platelet Volume 10.9 7.6 - 12.9 fL [facility] NRBC% auto 0.0 % [facility] NRBC Absolute 0.000 0.000 - 0.000 x10(3)/mc L [facility] Blood specimen (specimen) 11/22/2016 3:58 AM EDT 11/22/2016 4:13 AM EDT Narrative Resulting Agency Comment Spec In Lab Roque Sanches MD HEMATOLOGY ORDERABLE S Performing Organization Address City/State/[facility] Co de Phone Number [facility] [address] * (ABNORMAL) BMP w/fasting Glucose (11/22/2016 3:58 AM EDT) Glucose Fasting 127(H) 65 - 99 mg/dL [facility] Comment: ?Fasting* Glucose Interpretive [...] of Diabetes Mellitus, Position Statement from the [place] Diabetes Association. ??Diabetes Care, Volume 33, Supplement 1, Aug 2009 Blood Urea Nitrogen 10 10 - 20 mg/dL [facility] Creatinine 0.85 0.80 - 1.50 mg/dL [facility] Comment: Please note that the pediatric reference intervals supplied above were not validated at [facility]. Results from pediatric patients should be interpreted in conjunction to the patient's age, height and muscle mass. Sodium 142 135 - 145 mmol/L [facility] Potassium 3.3(L) 3.5 - 5.0 mmol/L [facility] Comment: Please note: ??Patients with WBC >100,000 may have falsely elevated Potassium levels. ??For accurate Potassium quantification in these patients send serum separator tube (gold top) for subsequent determinations. ??Contact the Clinical Chemistry Laboratory if there are any questions. Chloride 106 98 - 107 mmol/L [facility] Carbon Dioxide 21(L) 22 - 31 mmol/L [facility] Anion Gap 15 5 - 15 mmol/L [facility] Calcium 8.8 8.5 - 10.5 mg/dL [facility] Est Glomerular Filtration Rate >60 >=60 [facility] Comment: This estimated GFR (eGFR) [...] the following links into your internet browser. [email or web address] Blood specimen (specimen) 11/22/2016 3:58 AM EDT 11/22/2016 4:13 AM EDT Narrative Resulting Agency Comment Spec In Lab Roque Sanches MD CHEMISTRY ORDERABLES [facility] [place] [address] * (ABNORMAL) APTT (11/22/2016 3:58 AM EDT) [facility] Signature Partial Thromboplastin Time 44(H) 25 - 35 sec [facility] Comment: The recommended therapeutic range for full dose, unfractionated heparin at [facility] is 80 ? 114 seconds. The use of the anti-Xa (heparin) level rather than the PTT is recommended for monitoring anticoagulation intensity in critically ill patients receiving unfractionated heparin by continuous IV infusion. Blood specimen (specimen) 11/22/2016 3:58 AM EDT 11/22/2016 4:13 AM EDT Narrative Resulting Agency Comment Spec In Lab Drew Pepe MD HEMATOLOGY ORDERABLE S Performing Organization Address [facility] Co de Phone Number [facility] [place] [phone] * EKG 12 Lead (11/21/2016 8:34 PM EDT) Ventricular rate 72 BPM MUSE SYSTEM Atrial Rate 72 BPM MUSE SYSTEM P-R Interval 138 ms MUSE SYSTEM QRS Duration 86 ms MUSE SYSTEM Q-T Interval 382 ms MUSE SYSTEM QTC Calculated (Bezet) 418 ms MUSE SYSTEM Calculated P Princeton -2 degrees MUSE SYSTEM Calculated R [place] 16 degrees MUSE SYSTEM Calculated T [place] 16 degrees MUSE SYSTEM INTERPRETATION Normal sinus rhythm Normal ECG When compared with ECG of 30-JUL-2013 08:41, No significant change was found Confirmed by MD Walton Douglas ([id number]) on 11/22/2016 10:49:32 AM MUSE SYSTEM 11/21/2016 8:34 PM EDT 11/22/2016 10:49 AM EDT Drew Pepe MD ECG ORDERABLES Performing Organization Address [facility] de Phone Number MUSE SYSTEM * Hemoglobin A1c (11/21/2016 8:32 PM EDT) Hemoglobin A1c 5.6 4.3 - 5.6 % [facility] Comment: Reference Range: 4.3 - [...] Mellitus, Diabetes Care 2013; 36: Suppl. 1, P73-59 Estimated Average Glucose 114 mg/dL [facility] Comment: eAG equivalents for HbA1c percentages: HbA1c(%) ?eAG(mg/dL) 6.0 ?126 6.5 ?140 7.0 ?154 7.5 ?169 8.0 ?183 8.5 ?197 9.0 ?212 9.5 ?226 10.0 ? 240 Limitations: The eAG calculation has not been validated on women, individuals below 18 years old and above 70 years old, and individuals with hemoglobinopathies. Additional resources are available on the ADA website: [email or web address] Ashok PIMENTEL, Abdulkadir Tenorio, Jamie R, et al. ??Translating the A1C assay into estimated average glucose values. ??Diabetes Care 2008:31(8):8036-7907. Blood specimen (specimen) Venous Draw / Unknown 11/21/2016 8:32 PM EDT 11/22/2016 12:39 AM EDT Narrative Resulting Agency Comment Spec In Lab Drew Pepe MD CHEMISTRY ORDERABLES [facility] [place] [address] * TSH (11/21/2016 8:32 PM EDT) Thyroid Stimulating Hormone 2.29 0.27 - 4.20 mcIU/mL [facility] Blood specimen (specimen) Venous Draw / Unknown 11/21/2016 8:32 PM EDT 11/21/2016 8:40 PM EDT Narrative Resulting Agency Comment Spec In Lab Drew Pepe MD CHEMISTRY ORDERABLES Performing Organization Address City/[facility]/ZIP Co de Phone Number [facility] [address] * (ABNORMAL) Differential, Automated (11/21/2016 8:32 PM EDT) Neutrophil % 38.3 % [facility] Neutrophil Absolute 3.02 1.70 - 6.10 x10(3)/ L [facility] Lymph % 48.7 % [facility] Lymphocytes Abs 3.8(H) 0.9 - 3.2 x10(3)/ L [facility] Monocyte % 7.3 % [facility] Monocyte Abs 0.6 0.3 - 0.9 x10(3)/ L [facility] Eos % 4.4 % [facility] Eosinophils Abs 0.4 0.0 - 0.4 x10(3)/[facility] LABORATORY Basophil % 0.9 % [facility] Baso Absolute 0.1 0.0 - 0.1 x10(3)/ L [facility] Immature Gran % 0.40 % [facility] Comment: Immature granulocytes(IG's)percentage and absolute count will include metamyelocytes, myelocytes, and promyelocytes. Blood smears from CBCs yielding IG's will be scanned manually for concordance. If this scan disagrees with the automated IG or if promyelocytes are noted, a manual differential will be performed. Immature Gran Absolute 0.03 0.00 - 0.04 x10(3)/mc L [facility] Blood specimen (specimen) 11/21/2016 8:32 PM EDT 11/21/2016 8:37 PM EDT Narrative Resulting Agency Comment Spec In Lab Drew Pepe MD HEMATOLOGY ORDERABLE S Performing Organization Address [facility]/ZIP Co de Phone Number [facility] [place] [address] * Hemogram (11/21/2016 8:32 PM EDT) Pathologist [facility] White Blood Cell 7.9 4.0 - 9.5 x10(3)/[facility] Red Blood Cell 4.64 4.58 - 5.54 x10(6)/[facility] Hemoglobin 13.9 13.7 - 16.5 gm/dL [facility] Hematocrit 40.6 40.5 - 48.5 % [facility] Mean Cell Volume 87.5 82.9 - 93.1 [facility] LABORATORY Mean Cell Hemoglobin 30.0 27.5 - 32.1 pg [facility] Mean Cell Hemoglobin Concentration 34.2 32.0 - 35.7 gm/dL [facility] Platelet 179 145 - 357 x10(3)/[facility] RDW Standard Deviation 44.3 36.0 - 45.0 [facility]ORY RDW coefficient of variation 13.8 11.4 - 13.8 % [facility] Mean Platelet Volume 10.8 7.6 - 12.9 [facility] NRBC% auto 0.0 % [facility] NRBC Absolute 0.000 0.000 - 0.000 x10(3)/[facility] Blood specimen (specimen) 11/21/2016 8:32 PM EDT 11/21/2016 8:37 PM EDT Narrative Resulting Agency Comment Spec In Lab Drew Pepe MD HEMATOLOGY ORDERABLE S [facility] [address] * Cardiac Enzymes (11/21/2016 8:32 PM EDT) Pathologist [facility] Troponin-T <0.03 <=0.03 ng/mL [facility] Comment: 0.03 ng/mL: Represents the 99th percentile upper reference limit for normals. >0.03 ng/mL: Elevated cardiac troponin T level indicative of myocardial damage. Diagnosis of acute, evolving or recent [place] requires a typical rise and gradual fall [...] consensus document of the Joint Society of Cardiology/[place] College of Cardiology Committee for the redefinition of myocardial infarction. ??Journal of the [place] College of Cardiology 2000; 36: 959-969] Creatine Kinase 64 0 - 200 unit/L [facility] Blood specimen (specimen) 11/21/2016 8:32 PM EDT 11/21/2016 8:37 PM EDT Narrative Resulting Agency Comment Spec In Lab Drew Pepe MD CHEMISTRY ORDERABLES Performing Organization Address City/[facility] Co de Phone Number [facility] [address] * APTT (11/21/2016 8:32 PM EDT) [facility] Partial Thromboplastin Time 32 25 - 35 sec [facility] Comment: The recommended therapeutic range for full dose, unfractionated heparin at [facility] is 80 ? 114 seconds. The use of the anti-Xa (heparin) level rather than the PTT is recommended for monitoring anticoagulation intensity in critically ill patients receiving unfractionated heparin by continuous IV infusion. Blood specimen (specimen) 11/21/2016 8:32 PM EDT 11/21/2016 8:37 PM EDT Narrative Resulting Agency Comment Spec In Lab Drew Pepe MD HEMATOLOGY ORDERABLE S Performing Organization Address City/[facility]/ZIP Co de Phone Number [facility] [address] * Prothrombin Time (11/21/2016 8:32 PM EDT) [facility] Prothrombin Time 14.0 12.0 - 15.0 sec [facility] Comment: An INR <2.0 indicates [...] International Normalization Ratio 1.0 0.9 - 1.1 [facility] Blood specimen (specimen) 11/21/2016 8:32 PM EDT 11/21/2016 8:37 PM EDT Narrative Resulting Agency Comment Spec In Lab Drew Pepe MD HEMATOLOGY ORDERABLE S Performing Organization Address [facility] Co de Phone Number [facility] [address] * Hepatic Function Panel (11/21/2016 8:32 PM EDT) Protein, Total 6.8 6.1 - 8.0 gm/dL [facility] Albumin 4.0 3.2 - 5.2 gm/dL [facility] Aspartate Aminotransferase 15 0 - 39 unit/L [facility] Alanine Aminotransferase 9 0 - 55 unit/L [facility] Alkaline Phosphatase 43 40 - 120 unit/L [facility] Bilirubin, Total 0.2 0.2 - 1.3 mg/dL [facility] Bilirubin, Direct <0.1 0.0 - 0.3 mg/dL [facility] Blood specimen (specimen) 11/21/2016 8:32 PM EDT 11/21/2016 8:37 PM EDT Narrative Resulting Agency Comment Spec In Lab Drew Pepe MD CHEMISTRY ORDERABLES Performing Organization Address [facility] Co de Phone Number [facility] [address] * (ABNORMAL) Basic Metabolic Panel (non-fasting) (11/21/2016 8:32 PM EDT) Glucose 84 65 - 199 mg/dL [facility] Comment:Diabetes: >=200 mg/d L plus symptoms Blood Urea Nitrogen 10 10 - 20 mg/dL [facility] Creatinine 0.95 0.80 - 1.50 mg/dL [facility] Comment: Please note that the pediatric reference intervals supplied above were not validated at [facility]. Results from pediatric patients should be interpreted in conjunction to the patient's age, height and muscle mass. Sodium 145 135 - 145 mmol/L [facility] Potassium 3.5 3.5 - 5.0 mmol/L [facility] Comment: Please note: ??Patients with WBC >100,000 may have falsely elevated Potassium levels. ??For accurate Potassium quantification in these patients send serum separator tube (gold top) for subsequent determinations. ??Contact the Clinical Chemistry Laboratory if there are any questions. Chloride 105 98 - 107 mmol/L [facility] Carbon Dioxide 19(L) 22 - 31 mmol/L [facility] Anion Gap 21(H) 5 - 15 mmol/L [facility] Calcium 9.2 8.5 - 10.5 mg/dL [facility] Est Glomerular Filtration Rate >60 >=60 [facility] Comment: This estimated GFR (eGFR) [...] the following links into your internet browser. [email or web address] Blood specimen (specimen) 11/21/2016 8:32 PM EDT 11/21/2016 8:37 PM EDT Narrative Resulting Agency Comment Spec In Lab Drew Pepe MD CHEMISTRY ORDERABLES [facility] [address] * pro-Brain Natriuretic Peptide (11/21/2016 8:32 PM EDT) NT-proBNP 65 <=125 pg/mL [facility] Blood specimen (specimen) 11/21/2016 8:32 PM EDT 11/21/2016 8:37 PM EDT Narrative Resulting Agency Comment Spec In Lab Drew Pepe MD CHEMISTRY ORDERABLES Performing Organization Address [facility] Co de Phone Number [facility] [address] * POCT Glucose (11/21/2016 8:12 PM EDT) Glucose, POC 80 65 - 199 mg/dL [facility] Comment: Supplemental ranges: <140 mg/dL before meals <180 mg/dL all other times of the day Blood specimen (specimen) 11/21/2016 8:12 PM EDT 11/21/2016 8:12 PM EDT Valentín Oreilly MD POINT OF CARE TEST ORDERABLES Performing Organization Address [facility] Co de Phone Number [facility] [place] [place] [address] documented in this encounter Visit Diagnoses Diagnosis Unstable angina- Primary Intermediate coronary syndrome Unstable angina Intermediate coronary syndrome DM (diabetes mellitus) Type II or unspecified type diabetes mellitus without mention of complication, not stated as uncontrolled CAD (coronary artery disease) Coronary atherosclerosis of unspecified type of vessel, telida or graft HTN (hypertension) Unspecified essential hypertension Smoker Tobacco use disorder Dyslipidemia Other and unspecified hyperlipidemia documented in this encounter Administered Medications Inactive Administered Medications - up to 3 most recent administrations Medication Order MAR Action Action Date Dose Rate Site alum-mag hydroxide-simeth (MAALOX) 200-200-20 mg/5 mL oral suspension 10 mL 10 mL, Oral, 3 TIMES DAILY PRN, Starting on 11/23/16 at 1606, Until Tu11/25/16 at 1305, Heartburn, Routine Given 11/23/2016 4:18 [...] Intravenous, EVERY 1 HOUR PRN, Starting on Thu11/22/16 at 0013, Until Thu11/25/16 at 1305, Low [...] Given 11/24/2016 8:15 AM EDT 60 mg gabapentin (NEURONTIN) capsule 600 mg 600 mg, Oral, USER SPECIFIED (2 times per day), First dose on Thu11/22/16 at 0600, Until Discontinued, Routine Given 11/25/2016 5:51 AM EDT 600 mg Given 11/24/2016 2:47 PM EDT 600 mg Given 11/24/2016 5:52 AM EDT 600 mg gabapentin (NEURONTIN) capsule 900 mg 900 mg, Oral, NIGHTLY, First dose on Thu11/22/16 at 0030, Until Discontinued, Routine Given 11/24/2016 [...] 11/22/2016 4:57 AM EDT 4,000 Units heparin 25,000 units in dextrose [...] Given 11/24/2016 8:16 AM EDT 50 mg oxyCODONE (ROXICODONE) immediate release tablet 10 [...] dose, Starting on 11/22/16 at 1300, Until Thu11/22/16 at 1300, for enhancement of sub-optimal echo [...] mL/hr, Intravenous, CONTINUOUS, Starting on Thu11/24/16 at 1830, Until Thu11/24/16 at 2329, Recovery (Recovery-Hospital Unit) New Bag [...] 0814 (Given - Provider: Esha Chen RN)181 ([facility] Hold - Provider: Admin Adt - Reason: Transfer to a Procedural area)1940 ([facility] Unhold - Provider: Admin Adt) 09 (Given - Provider: Venancio Borugeois RN) atorvastatin (LIPITOR) tablet 80 mg 80 mg, Oral, EVERY EVENING, First dose on 11/22/16 at 1700, Until Discontinued, Routine 162 (Given - Provider: Esha Chen RN) 165 (Given - Provider: Esha Chen RN)1811 ([facility] Hold - Provider: Admin Adt - Reason: Transfer to a Procedural area)1940 ([facility] Unhold - Provider: Admin Adt) buPROPion (WELLBUTRIN SR or ZYBAN) SR tablet 150 mg 150 mg, Oral, 2 TIMES DAILY, First dose on 11/22/16 at 0030, Until Discontinued, DO NOT CRUSH OR OPEN, Routine 0803 (Given - Provider: Esha Chen RN)2058 (Given - Provider: Christy Medina RN) 0814 (Given - Provider: Esha Chen RN)1811 ([facility] Hold - Provider: Admin Adt - Reason: Transfer to a Procedural area)1940 ([facility] Unhold - Provider: Admin Adt)2107 (Given - Provider: Venice Huffman RN) 0900 (Given - Provider: Venancio Bourgeois RN) clopidogrel (PLAVIX) tablet 75 mg 75 mg, Oral, DAILY, First dose on 11/22/16 at 0900, Until Discontinued, Routine 0804 (Given - Provider: Esha Chen RN) 0815 (Given - Provider: Esha Chen RN)181 ([facility] Hold - Provider: Admin Adt - Reason: Transfer to a Procedural area)1940 ([facility] Unhold - Provider: Admin Adt) 0858 (Given - Provider: Venancio Bourgeois, VERO) diaZEPam (VALIUM) tablet 5 mg (COMPLETED) 5 mg, Oral, ONCE, 1 dose, On 11/24/16 at 1730, Cath (Day of Procedure), Routine 1708 (Given - Provider: Esha Chen RN) diphenhydrAMINE (BENADRYL) capsule 25 mg (COMPLETED) 25 mg, Oral, ONCE, 1 dose, On 11/24/16 at 1730, Cath (Day of Procedure), Routine 1708 (Given - Provider: Esha Chen RN) DULoxetine (CYMBALTA) capsule 60 mg 60 mg, Oral, 2 TIMES DAILY, First dose on 11/22/16 at 0030, Until Discontinued, Routine 0804 (Given - Provider: Esha Chen RN)2058 (Given - Provider: Christy Medina RN) 0815 (Given - Provider: Esha Chen RN)1811 ([facility] Hold - Provider: Admin Adt - Reason: Transfer to a Procedural area)1940 ([facility] Unhold - Provider: Admin Adt)2107 (Given - Provider: Venice Huffman, VERO) 0858 (Given - Provider: Venancio Bourgeois RN) gabapentin (NEURONTIN) capsule 600 mg 600 mg, Oral, USER SPECIFIED (2 times per day), First dose on 11/22/16 at 0600, Until Discontinued, Routine 0600 (Given - Provider: Alana Patterson RN)1335 (Given - Provider: Esha Chen RN) 0552 (Given - Provider: Christy Medina RN)1447 (Given - Provider: Esha Chen RN)1811 ([facility] Hold - Provider: Admin Adt - Reason: Transfer to a Procedural area)1940 ([facility] Unhold - Provider: Admin Adt) 0551 (Given - Provider: Venice Huffman, VERO) gabapentin (NEURONTIN) capsule 900 mg 900 mg, Oral, NIGHTLY, First dose on 11/22/16 at 0030, Until Discontinued, Routine 2058 (Given - Provider: Christy Medina RN) 1811 ([facility] Hold - Provider: Admin Adt - Reason: Transfer to a Procedural area)1940 ([facility] Unhold - Provider: Admin Adt)2142 (Given - Provider: Venice Huffman, VERO) insulin lispro (humaLOG) VIAL injection 1-4 Units(Linked [...] RN - Reason: Order parameters not met)1811 ([facility] Hold - Provider: Admin Adt - Reason: Transfer to a Procedural area)1940 ([facility] Unhold - Provider: Admin Adt) 0730 (Not Given - Provider: Venancio Bourgeois RN - Reason: Order parameters not met) isosorbide mononitrate (IMDUR) CR tablet 120 mg 120 mg, Oral, DAILY, First dose on 11/22/16 at 0900, Until Discontinued, DO NOT CRUSH OR OPEN, Routine 0808 (Given - Provider: Esha Chen RN) 0815 (Given - Provider: Esha Chen RN)181 ([facility] Hold - Provider: Admin Adt - Reason: Transfer to a Procedural area)194 ([facility] - Provider: Admin Adt) 0858 (Given - Provider: Venancio Bourgeois RN) losartan (COZAAR) tablet 12.5 mg 12.5 mg, Oral, DAILY, First dose on 11/22/16 at 0900, Until Discontinued, Routine 0807 (Given - Provider: Esha Chen RN) 0816 (Given - Provider: Esha Chen RN)181 ([facility] Hold - Provider: Admin Adt - Reason: Transfer to a Procedural area)1940 ([facility] Unhold - Provider: Admin Adt) 0857 (Given - Provider: Venancio Bourgeois, VERO) meTOPROLOL tartrate (LOPRESSOR) tablet 50 mg 50 mg, Oral, EVERY 12 HOURS SCHEDULED (2 times per day), First dose (after last modification) on 11/22/16 at 2100, Until Discontinued, Hold if HR < 60, SBP < 100, Routine 08 (Given - Provider: Esha Chen RN)2055 (Given - Provider: Christy Medina RN) 08 (Given - Provider: Esha Chen RN)1811 ([facility] Hold - Provider: Admin Adt - Reason: Transfer to a Procedural area)1940 ([facility] Unhold - Provider: Admin Adt)2107 (Given - Provider: Venice Huffman, VERO) 899 (Given - Provider: Venancio Bourgeois, VERO) pantoprazole (PROTONIX) tablet 40 mg 40 mg, Oral, DAILY, First dose on 11/22/16 at 0900, Until Discontinued, DO NOT CRUSH OR OPEN, Routine 08 (Given - Provider: Esha Chen RN) 08 (Given - Provider: Esha Chen RN)1811 ([facility] Hold - Provider: Admin Adt - Reason: Transfer to a Procedural area)1940 ([facility] Unhold - Provider: Admin Adt) 900 (Given - Provider: Venancio Bourgeois, VERO) pramipexole (MIRAPEX) tablet 0.5 mg 0.5 mg, Oral, NIGHTLY, First dose on 11/22/16 at 0030, Until Discontinued, Routine 2058 (Given - Provider: Christy Medina RN) 1811 ([facility] Hold - Provider: Admin Adt - Reason: Transfer to a Procedural area)1940 ([facility] Unhold - Provider: Admin Adt)2107 (Given - Provider: Venice Huffman, VERO) ranolazine (RANEXA) ext-release tablet 500 mg 500 mg, Oral, 2 TIMES DAILY, First dose on 11/22/16 at 0030, Until Discontinued, DO NOT CRUSH OR OPEN. Baseline EKG required before administration., Routine, Has baseline EKG been obtained? Yes 0809 (Given - Provider: Esha Chen RN)2058 (Given - Provider: Christy Medina RN) 08 (Given - Provider: Esha Chen RN)1811 ([facility] - Provider: Admin Adt - Reason: Transfer to a Procedural area)1940 ([facility] - Provider: Admin Adt)2107 (Given - Provider: Venice Huffman, VERO) 0900 (Given - Provider: Venancio Bourgeois RN) sodium chloride 0.9 % flush 5 mL 5 mL, Intravenous, 2 TIMES DAILY, First dose on 11/22/16 at 0030, Until Discontinued, Routine 0810 (Given - Provider: Esha Chen RN)2100 (Given - Provider: Christy Medina RN) 0900 (Not Given - Provider: Esha Chen RN - Reason: See comment - Comment: IV flds infusing)1811 ([facility] - Provider: Admin Adt - Reason: Transfer to a Procedural area)1940 ([facility] - Provider: Admin Adt)2111 (Given - [...] Intravenous, EVERY 12 HOURS, First dose on 11/24/16 at 0115, Until Discontinued, Cath (Day of Procedure), Routine 0115 (Given - Provider: Christy Medina RN)1315 (Not Given - Provider: Esha Chen RN - Reason: See comment - Comment: completed earlier) sodium chloride 0.9 % flush 5 mL 5 mL, Intravenous, EVERY 12 HOURS, First dose on Thu11/21/16 at 2030, Until Discontinued, Routine 0810 (Given - Provider: Esha Chen RN)2029 (Given - Provider: Christy Medina, VERO) 09 (Given - Provider: Esha Chen RN)1811 ([facility] - Provider: Admin Adt - Reason: Transfer to a Procedural area)1940 ([facility] - Provider: Admin Adt)2029 (Not Given - Provider: Venice Huffman, VERO - Reason: See comment - Comment: IV infusing) 08 (Due - Provider: Admin Adt) topiramate (TOPAMAX) tablet 50 mg 50 mg, Oral, NIGHTLY, First dose on 11/22/16 at 0030, Until Discontinued, Routine 2058 (Given - Provider: Christy Medina RN) 1811 ([facility] Hold - Provider: Admin Adt - Reason: Transfer to a Procedural area)1940 ([facility] - Provider: Admin Adt)2107 (Given - Provider: Venice Huffman, VERO) Continuous [...] RN)1620 (New Bag - Provider: Esha Chen RN)181 ([facility] Hold - Provider: Admin Adt - Reason: Transfer to a Procedural area)1940 ([facility] - Provider: Admin Adt) sodium chloride 0.9% infusion (CANCELED) 100 mL/hr, Intravenous, CONTINUOUS, Starting on Thu11/24/16 at 0300, Until Thu11/24/16 at 1804, Cath (Day of Procedure) 0228 (New Bag - Provider: Christy Medina RN)1207 (New Bag - Provider: Esha Chen RN)1706 (Stopped - Provider: Esha Chen RN) sodium chloride 0.9% infusion () 100 mL/hr, Intravenous, CONTINUOUS, Starting on Thu11/24/16 at 1830, Until Thu11/24/16 at 2329, Recovery (Recovery-Hospital Unit) 1829 (New Bag - Provider: Fany Kaplan RN) PRN Medication Order 11/23/2016 11/24/2016 11/25/2016 alum-mag hydroxide-simeth (MAALOX) 200-200-20 mg/5 mL oral suspension 10 mL 10 mL, Oral, 3 TIMES DAILY PRN, Starting on 11/23/16 at 1606, Until Tu11/25/16 at 1305, Heartburn, Routine 1618 (Given - Provider: Esha Chen RN) 1811 ([facility] Hold - Provider: Admin Adt - Reason: Transfer to a Procedural area)1940 ([facility] Unhold - Provider: Admin Adt) cyclobenzaprine (FLEXERIL) tablet 10 mg 10 mg, Oral, 3 TIMES DAILY PRN, Starting on 11/22/16 at 0013, Until Thu11/25/16 at 1305, Muscle spasms, Routine 1811 ([facility] Hold - Provider: Admin Adt - Reason: Transfer to a Procedural area)1940 ([facility] Unhold - Provider: Admin Adt) dextrose 50% [...] duration of the active insulin., Routine 1811 ([facility] Hold - Provider: Admin Adt - Reason: Transfer to a Procedural area)1940 ([facility] Unhold - Provider: Admin Adt) fentaNYL 50 mcg/mL multi-dose injection (CANCELED) ONCE PRN, Starting on 11/24/16 at 1727, Until 11/24/16 at 1935, Intra-Operative (Intra-Procedure), Routine 1726 (Given [...] of the active insulin. , Routine 1811 ([facility] Hold - Provider: Admin Adt - Reason: Transfer to a Procedural area)1940 ([facility] Unhold - Provider: Admin Adt) heparin (porcine) [...] (Given - Provider: Esha Chen RN) 1811 ([facility] Hold - Provider: Admin Adt - Reason: Transfer to a Procedural area)1940 ([facility] Unhold - Provider: Admin Adt) heparin (porcine) injection (CANCELED) ONCE PRN, Starting on Thu11/24/16 at 1733, Until Thu11/24/16 at 1941, Cath (Intra-Procedure), Routine 1732 (Given - Provider: Naye Tena, VERO)1751 (Given - Provider: Naye Tena RN) lidocaine (XYLOCAINE) 10 mg/mL (1 %) injection 3 mg 3 mg (0.3 mL), Subcutaneous, ONCE PRN, 1 dose, Starting on Thu11/21/16 at 2010, Until Thu11/25/16 at 1305, for discomfort with PIV insertion, Routine 1811 ([facility] Hold - Provider: Admin Adt - Reason: Transfer to a Procedural area)1940 ([facility] Unhold - Provider: Admin Adt) midazolam (PF) (VERSED) 1 mg/mL multi-dose injection (CANCELED) ONCE PRN, Starting on 11/24/16 at 1727, Until Thu11/24/16 at 1935, Cath (Intra-Procedure), Routine 172 (Given - Provider: Wyatt Becker) nitroGLYcerin (NITROSTAT) SL tablet 0.4 mg 0.4 mg, Sublingual, EVERY 5 MIN PRN, Starting on 11/22/16 at 0013, Until 11/25/16 at 1305, Chest pain, May repeat every 5 minutes for a total of three doses. Notify provider if chest pain not relieved with nitroglycerin. Do not administer nitroglycerin if the patinet has received or taken phosphodiesterase (PDE-5) inhibitors such as sildenafil, tadalafil or vardenafil within the last 24 to 72 hours., Routine 1811 ([facility] Hold - Provider: Admin Adt - Reason: Transfer to a Procedural area)1940 ([facility] Unhold - Provider: Admin Adt) nitroGLYcerin 100 mcg/mL intracoronary dilution (CANCELED) ONCE PRN, Starting on Thu11/24/16 at 1743, Until Thu11/24/16 at 1941, Cath (Intra-Procedure), Routine 174 (Given - Provider: Anton Horvath MD)1757 (Given - Provider: Anton Horvath MD) oxyCODONE (ROXICODONE) immediate release tablet 10 mg 10 mg, Oral, 4 TIMES DAILY PRN, Starting on 11/22/16 at 0013, Until Tu11/25/16 at 1305, back pain, Routine 1617 (Given - Provider: Esha Chen RN) 1811 ([facility] Hold - Provider: Admin Adt - Reason: Transfer to a Procedural area)1940 ([facility] Unhold - Provider: Admin Adt) sodium chloride 0.9 % flush 5-20 mL 5-20 mL, Intravenous, EVERY 1 MIN PRN, Starting on 11/22/16 at 0013, Until 11/25/16 at 1305, flush, Flush pertains to all indwelling lines. Flush per protocol found in the job aid using the link provided on this medication record., Routine 1811 ([facility] Hold - Provider: Admin Adt - Reason: Transfer to a Procedural area)1940 ([facility] Unhold - Provider: Admin Adt) sodium chloride 0.9 % flush 5-20 mL 5-20 mL, Intravenous, EVERY 1 MIN PRN, Starting on Thu11/21/16 at 2010, Until Thu11/25/16 at 1305, flush, Flush pertains to all indwelling lines. Flush per protocol found in the job aid using the link provided on this medication record., Routine 1811 ([facility] Hold - Provider: Admin Adt - Reason: Transfer to a Procedural area)1940 ([facility] Unhold - Provider: Admin Adt) sodium chloride 0.9% infusion (CANCELED) CONTINUOUS PRN, Starting on Thu11/24/16 at 1750, Until Thu11/24/16 at 1941, Cath (Intra-Procedure) 1750 (New Bag - Provider: [...] PRN, Starting on 11/22/16 at 0013, Until 11/25/16 at 1305, Low blood sugar, For BG [...] PRN, Starting on 11/22/16 at 0013, Until 11/25/16 at 1305, Low blood sugar, For BG [...] Routine documented in this encounter Care Teams Cottage Cheese Maker Relationship Specialty Start Date End Date Coni Lim MD [address] [place] [address] PCP - General 07/16/10 documented as of this encounter
--- OUTSIDE RECORDS SUMMARY | 2024-04-30 13:42 | XMS_ITS | Encounter Summary ---
Author Organization [facility] [place] [address] Care Team Providers Care Acting Section Chief Name Role Phone Coni Lim MD Primary Care Provider [phone] Encounter Details Date Type Department Care Team (Late st Contact Info) Description 11/26/2016 External Results [place] [address] Dwayne Gonzalez MD [address] [place] [id number] Social History Tobacco Use Types Packs/Day Years [...] Date/Time Associated Diagnosis Comments ECG SCAN Routine 11/26/2016 documented in this encounter Results * Scan Doc: ECG (11/26/2016) Dwayne Gonzalez MD MEDIA MGR SCAN EXT ORDR/RSLT documented in this encounter Visit Diagnoses Not on filedocumented in this encounter Care Teams Acting Section Chief Relationship Specialty Start Date End Date Coni Lim MD [address] [place], [place] [address] PCP - General 07/16/10 documented as of this encounter
--- OUTSIDE RECORDS SUMMARY | 2024-04-30 13:42 | XMS_ITS | Encounter Summary ---
Author Organization [facility] Address [facility] [place] [address] Care Team Providers Care Disaster Recovery Manager Name Role Phone Coni Lim MD Primary Care Provider [phone] Encounter Details Date Type Department Care Team (Late st Contact Info) Description 11/26/2016 Telephone Cardiology at [address] [phone] Roque Paulson MD [facility] [place] [address] Social History Tobacco Use Types Packs/Day Years [...] encounter Miscellaneous Notes * Telephone Encounter - Roque Paulson - 11/26/2016 6:23 PM EDT Initial Contact Date: 11/26/2016 Initial contact time: 6:23 PM Referring Provider: Dr. Kimball Patient [facility]: [facility] per OSH: 51 y/o old with cad s/p recent pci. Had cp that was slightly different than prior presentation. Nowcp free, ekg unchanged, enzymes negative as per osh. Plan: Agreed with discharging the patient with instructions to follow up if sx's worsen or fail to improve. Roque Paulson MD 11/26/2016 6:27 PM documented in this encounter Plan of Treatment Not on file documented as of this encounter Visit Diagnoses Not on filedocumented in this encounter Care Teams Disaster Recovery Manager Relationship Specialty Start Date End Date Coni Lim MD [address] [place] [address] PCP - General 07/16/10 documented as of this encounter
--- OUTSIDE RECORDS SUMMARY | 2024-04-30 13:43 | XMS_ITS | Encounter Summary ---
Author Organization [facility] Address [facility] [place] [address] Care Team Providers Care Transportation Officer Name Role Phone Sarita Lim MD Primary Care Provider [phone] Encounter Details Date Type Department Care Team (Late st Contact Info) Description 07/29/2013 8:00 AM EST - 07/29/2013 9:00 AM EST [place] [id number] Edy Trimble MD [facility] [place] [address] CARDIAC CATHETERIZATION Social History Tobacco Use Types [...] Sign Reading Time Taken Comments Blood Pressure 114/74 07/29/2013 7:50 AM EST Pulse 79 07/29/2013 7:50 AM EST Temperature 36.6 ??C (97.9 ??F) 07/29/2013 7:50 AM ES T Respiratory Rate 12 07/29/2013 7:50 AM EST Oxygen Saturation 97% 07/29/2013 7:50 AM EST Inhaled Oxygen Concentration - - Weight 112.5 kg (248 lb) 07/29/2013 7:50 AM EST Height 177.8 cm (5' 10) 07/29/2013 7:50 AM EST Body Mass Index 35.58 07/29/2013 7:50 AM EST documented in this encounter Discharge Instructions * Patient Instructions* Turner Tan - 07/29/2013 11:24 AM EST Anti-coagulation follow up: N/A Call your doctor if: Chest pain, dyspnea, pain or swelling in legs occurs. If you have non-emergent questions between now and the time of your follow up appointments: During 8am-5pm Thursday through Thursday call [phone] to speak with a nurse in the cardiology clinic All other times call [phone] and ask to speak to the hospital fellow fusion juncture grinder. Return to work: One week Driving: No driving for 48 hours after catheterization. Follow up Appointments: PCP Call for appointment in 1-2 weeks. 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 Please call for appointment Home oxygen therapy: N/A Arrangements for VNA/home care: none * Attachments The following attachments cannot be sent through Care Everywhere. * CARDIAC REHABILITATION: AFTER YOUR VISIT (SLOVENIAN) * CHEST PAIN (ANGINA): AFTER YOUR VISIT (SLOVENIAN) * PERCUTANEOUS CORONARY INTERVENTION: WHAT TO EXPECT AT HOME (SLOVENIAN) documented in this encounter Medications at Time of Discharge Medication Sig Dispensed Refills Start Date End Date gabapentin (NEURONTIN) 300 mg capsule Take 300 mg by mouth 3 times daily. 2 tabs in morning, 2 tabs in evening and 3 tabs at bedtime DULoxetine (CYMBALTA) 60 mg capsule Take 60 mg by mouth 2 times daily. cyclobenzaprine (FLEXERIL) 10 mg tablet Take 10 mg by mouth nightly. pantoprazole (PROTONIX) 20 mg tablet Take 1 tablet by mouth daily. 90 tablet 5 07/30/2013 11/17/2013 nitroGLYcerin (NITROSTAT) 0.[address] 1 tablet under the tongue daily as needed for Chest pain. 90 tablet 4 07/30/2013 11/21/2016 metFORMIN (GLUCOPHAGE) 850 mg tablet Take 850 mg by mouth 2 times daily (with meals). 11/21/2016 furosemide (LASIX) 20 mg tablet Take 20 mg by mouth daily as needed. 03/16/2019 levofloxacin (LEVAQUIN) 250 mg tablet Take 500 mg by mouth daily. 11/21/2016 isosorbide mononitrate (IMDUR) 120 mg 24 hr tablet Take 1 tablet by mouth daily. 30 tablet 2 06/15/2012 09/14/2017 metoprolol tartrate (LOPRESSOR) 50 mg tablet Take 1 tablet by mouth 2 times daily. 60 tablet 2 06/15/2012 11/21/2016 aspirin 81 mg EC tablet Take 1 tablet by mouth daily. 30 tablet 06/04/2012 11/21/2016 rosuvastatin (CRESTOR) 10 mg tablet Take 1 tablet by mouth daily. 30 tablet 3 06/04/2012 09/12/2017 nitroGLYcerin (NITROSTAT) 0.[address] 0.4 mg under the tongue every 5 minutes as needed. 03/16/2019 DILTiazem (DILACOR XR) 240 mg 24 hr capsule Take 240 mg by mouth daily. 11/21/2016 magnesium oxide (MAG-OX) 400 mg tablet Take 400 mg by mouth 2 times daily. 11/21/2016 quinine 260 mg tablet Take 260 mg by mouth daily as needed. 11/21/2016 documented as of this encounter Progress Notes * Reina Randall RN - 07/30/2013 9:52 AM EST The patient has met discharge criteria per policy. Discharge instruction reviewed and patient discharged to responsible adult. Patient???s pain level has been assessed and patient states that his/her level is tolerable at thistime. The After Visit Summary (AVS) and accompanying hand-outs have been reviewed with the patient; the patient verbalizes understanding at this time. Opportunity for clarification provided. All new medications have been reviewed with the patient and the appropriate hand-outs have been given to the patient. Reportable sign and symptoms have been reviewed with patient. * Mahesh Hurt RN - 07/30/2013 6:21 AM EST Pt denies pain or SOB, ambulates to bathroom independently and without incident. Pt sleeping comfortably throughout the night. Will continue to monitor. * Jessica Barr RN - 07/29/2013 4:50 PM EST Activity Summary: By discharge, patient will be able to perform self care, walk 5-7 minutes and go up and down stairs without signs or symptoms of ischemia. Date /Initials Baseline Response Symptoms/Comments 07/29/2013/ ACD Activity 5-7 minute cardiac walk with 1 flight of stairs HR 76 86 Denies SOB, ANDERSON, CP, vertigo, light headedness and other complaints. Pt tolerated very well. BP 102/64 (73) 100/69 (76) O2 Sat 96% RA 100% RA ECG NSR NSR JESSICA BARR RN * Turner Tan Mulugeta - 07/29/2013 11:26 AM EST Inpatient Cardiology Discharge Day Note Patient Name: Romeo Coe Service: Interventional Cardiology Responsible Attending: Dr. Trimble Reason for continued hospitalization: S/p PCI to LAD Active Problems: Active Hospital Problems Diagnosis ??? CAD (coronary artery disease), non-obstructive Priority: High Resolved Hospital Problems Diagnosis Date Resolved No resolved problems to display. Interval History: Romeo Coe is a 48 y.o. male is admitted with a chief complaint of Angina. He underwent elective Coronary Angio 07/29/2013 which showed a 65% (FFR 0.74) mid LAD lesion s/p PCI with 3.5 X 18 mm JACINDA. He tolerated the procedure well and was admitted for observation overnight. He did well and is okay for discharge home today. Patient admitted following cardiac catheterization for overnight monitoring and observation. The patient did well overnight without significant chest pain or arrhythmias on telemetry. The right femoral access site was evaluated and the femoral pulse was palpable with no evidence of hematoma, bruit,or vascular compromise to the right foot. Cardiac biomarkers and a repeat ECG were reviewed. The patient ambulated with nursing without chest discomfort or exertional dyspnea. The patient met criteria for discharge home in stable condition. Review of Systems: Review of Systems Telemetry: HR: sinus rhythm Meds: Scheduled Meds: ??? aspirin 81 mg Oral Daily ??? clopidogrel 75 mg Oral Daily ??? cyclobenzaprine 10 mg Oral Nightly ??? DILTiazem 240 mg Oral Daily ??? DULoxetine 60 mg Oral BID ??? furosemide 20 mg Oral Daily ??? gabapentin 300 mg Oral TID ??? isosorbide mononitrate 120 mg Oral QAM ??? metoprolol tartrate 50 mg Oral BID ??? rosuvastatin 10 mg Oral QPM ??? insulin aspart 1-4 Units Subcutaneous Q4H SONIA ??? pantoprazole 20 mg Oral Daily ??? [DISCONTINUED] sodium chloride 0.9 % 5 mL Intravenous Q12H ??? [DISCONTINUED] omeprazole 20 mg Oral Daily Continuous Infusions: ??? [] sodium chloride 0.9% Stopped (07/29/13 1342) ??? [DISCONTINUED] sodium chloride 0.9% 500 mL (07/29/13 1001) ??? [DISCONTINUED] adenosine 140 mcg/kg/min (07/29/13 0955) PRN Meds:.dextrose 50%, glucagon (human recombinant), nitroGLYcerin, flu vaccine (36 mos+) (PF), [DISCONTINUED] heparin (porcine), [DISCONTINUED] adenosine, [DISCONTINUED] midazolam, [DISCONTINUED] fentaNYL (PF), [DISCONTINUED] nitroGLYCerin, [DISCONTINUED] fentaNYL (PF), [DISCONTINUED] clopidogrel, [DISCONTINUED] aspirin, [DISCONTINUED] fentaNYL (PF), [DISCONTINUED] iohexol, [DISCONTINUED] atropine, [DISCONTINUED] fentaNYL (PF), [DISCONTINUED] midazolam Physical Exam: Vital Signs: Last value Range last 8 hrs Temperature Temp: 36.7 ??C (98.1 ??F) Temp: [36.7 ??C (98.1 ??F)-36.8 ??C (98.2 ??F)] Heart Rate Heart Rate: 60 Heart Rate: [60-62] Blood Pressure BP: 117/73 mmHg BP: (104-117)/(71-73) Respiratory Rate Resp: 12 Resp: [12-16] SpO2 SpO2: 96 % SpO2: [96 %-97 %] Physical Exam Gen: No distress. Alert and oriented. Pleasant. Resp: CTA, no wheeze or crackles. CVS: S1, S2, No S3 or S4. No murmurs/Rubs Abd: Soft and non-tender Ext: 2+ right femoral pulse, 2+ right DP, DT Access site no bruising and no hematoma Lab Comments: Recent Results (from the past 24 hour(s)) CARDIAC ENZYMES Component Value Range Troponin-T <0.03 <=0.03 ng/mL CK, Total 50 0 - 200 unit/L POCT GLUCOSE Component Value Range POC Glucose 142 60 - 199 mg/dL CARDIAC ENZYMES Component Value Range Troponin-T <0.03 <=0.03 ng/mL CK, Total 55 0 - 200 unit/L POCT GLUCOSE Component Value Range POC Glucose 138 60 - 199 mg/dL MISCELLANEOUS LAB REQUEST Component Value Range Misc Lab Result Request received in lab. CK-MB STUDY Component Value Range CK, Total 57 0 - 200 unit/L CK-MB 1.4 0.0 - 5.0 mcg/L CKMB Index 2.5 0.0 - 5.0 mcg/u POCT GLUCOSE Component Value Range POC Glucose 127 60 - 199 mg/dL POCT GLUCOSE Component Value Range POC Glucose 129 60 - 199 mg/dL POCT GLUCOSE Component Value Range POC Glucose 145 60 - 199 mg/dL MISCELLANEOUS LAB REQUEST Component Value Range Misc Lab Result Request received in lab. CK-MB STUDY Component Value Range CK, Total 54 0 - 200 unit/L CK-MB 1.8 0.0 - 5.0 mcg/L CKMB Index 3.3 0.0 - 5.0 mcg/u CARDIAC ENZYMES Component Value Range Troponin-T <0.03 <=0.03 ng/mL CK, Total 60 0 - 200 unit/L BMP W/FASTING GLUCOSE Component Value Range Glucose Fasting 156 (*) 65 - 99 mg/dL BUN 11 10 - 20 mg/dL Creatinine 0.62 (*) 0.80 - 1.50 mg/dL Sodium 139 135 - 145 mmol/L Potassium 4.2 3.5 - 5.0 mmol/L Chloride 105 98 - 107 mmol/L CO2 22 22 - 31 mmol/L Anion Gap 12 5 - 15 mmol/L Calcium 8.9 8.5 - 10.5 mg/dL Estimated GFR >60 >=60 LIPID PANEL (FASTING) Component Value Range Chol, Total 154 <=199 mg/dL Triglycerides 156 (*) <=149 mg/dL HDL 36 (*) >=40 mg/dL LDL Cholesterol 87 <=99 mg/dL Chol/HDL Ratio 4.3 CBC (WITH DIFF) Component Value Range WBC 9.0 4.0 - 10.0 x10(3)/mcL RBC 4.93 4.63 - 6.08 x10(6)/mcL Hemoglobin 14.3 13.7 - 17.5 gm/dL Hematocrit 43.2 40.0 - 51.0 % MCV 87.6 79.0 - 92.0 fL MCH 29.0 25.6 - 32.2 pg MCHC 33.1 32.0 - 36.5 gm/dL Platelets 179 145 - 370 x10(3)/mcL RDWSD 44.5 35.0 - 46.0 fL RDWCV 13.9 10.9 - 14.4 % MPV 10.8 9.0 - 12.0 fL DIFFERENTIAL, AUTOMATED Component Value Range Neutrophils % 60.0 34.0 - 71.0 % Neutr Abs (ANC) 5.42 1.50 - 6.30 x10(3)/mcL Lymphocytes % 27.8 19.0 - 53.0 % Lymphocytes Abs 2.5 1.0 - 3.6 x10(3)/mcL Monocytes % 8.0 4.0 - 13.0 % Monocyte Abs 0.7 0.2 - 1.0 x10(3)/mcL Eosinophils % 3.4 0.0 - 7.0 % Eosinophils Abs 0.3 0.0 - 0.5 x10(3)/mcL Basophils % 0.4 0.0 - 2.0 % Basophils Abs 0.0 0.0 - 0.2 x10(3)/mcL Immature Gran % 0.40 0.00 - 0.66 % Lisseth Gran Abs 0.04 0.00 - 0.05 x10(3)/mcL POCT GLUCOSE Component Value Range POC Glucose 156 60 - 199 mg/dL Pertinent Radiographic/Diagnostic Results: No new tests Discharge Medication Checklist: Aspirin Yes Clopidogrel/prasugrel Yes Edvin inhibitor/or ARB No: Beta Agatha Yes Lipid Lowering Yes Nitroglycerin Yes Assessment: Romeo Coe is a 48 y.o. male is admitted with a chief complaint of Angina. He underwent elective Coronary Angio 07/29/2013 which showed a 65% (FFR 0.74) mid LAD lesion s/p PCI with 3.5 X 18 mm JACINDA. He tolerated the procedure well and was admitted for observation overnight. He did well overnight and had no symptoms. He ambulated with the nursing staff and did well, had nosymptoms. His BP was well controlled at rest and with ambulation. Plan: 1. Okay for discharge later this morning 2. Continue ASA indefinitely and plavix for at least 1 year 3. Aggressive risk factors modifications, diet and exercise 4.Continue Rosuvastatin and target LDL< 70 mg/dl 5.Follow cardiology clinic in 4 weeks. * Curt Silva - 07/29/2013 11:18 AM EST ABSORB III ENROLLMENT NOTE ABSORB III RANDOMIZED CONTROLLED TRIAL A Clinical Evaluation of Absorb??? BVS, the Everolimus Eluting Bioresorbable Vascular Scaffold in the Treatment of Subjects with de abby [place] Coronary Artery Lesions PI: Edy Trimble MD Pager #:[phone] Research Coordinators: GLADYS Rosenbaum, BA, VALVE LINER RUBBER Pager #:[phone] Oneil Newsome RN Pager #: [phone] Purpose: The pivotal trial to support the [place] pre-market approval (PMA) of Absorb BVS. ABSORB III will evaluate the safety and effectiveness of the Absorb BVS System compared to the XIENCE in the treatment of subjects, including those with diabetes mellitus, with ischemic heart disease caused by up to two denovo [place] coronary artery lesions in separate epicardial vessels. Study Design: A prospective, randomized (2:1 ABSORB BVS to XIENCE), single-blind, multi-center trial registering ~2250 patients. Subject Enrollment, Randomization and Registration: - Subjects are considered enrolled in ABSORB III after signing the Informed Consent. - Subjects are considered randomized in ABSORB III after the interactive voice response system (IVRS) has been called and a device (Absorb BVS or XIENCE) has been assigned. - Subjects are considered registered in the ABSORB III upon randomization. Following angiographic screening, it was determined the subject satisfied all inclusion criteria and none of the exclusion criteria. The subject was randomized via IVRS and registered into the ABSORBIII trial, follow-up will continue through 5 years post procedure. Study ID#: [id number], JAM NOTE: Patient must remain blinded to their assigned study device!! * Curt Silva - 07/29/2013 7:25 AM EST ABSORB III RANDOMIZED CONTROLLED TRIAL A Clinical Evaluation of Absorb??? BVS, the Everolimus Eluting Bioresorbable Vascular Scaffold in the Treatment of Subjects with de abby [place] Coronary Artery Lesions PI: Edy Trimble MD Pager #:[phone] Research Coordinators: Curt Silva, BS, BA, VALVE LINER RUBBER Pager #:[phone] Oneil Newsome RN Pager #: [phone] Purpose: The pivotal trial to support the [place] pre-market approval (PMA) of Absorb BVS. ABSORB III will evaluate the safety and effectiveness of the Absorb BVS System compared to the XIENCE in the treatment of subjects, including those with diabetes mellitus, with ischemic heart disease caused by up to two denovo [place] coronary artery lesions in separate epicardial vessels. Study Design: A prospective, randomized (2:1 ABSORB BVS to XIENCE), single-blind, multi-center trial registering ~2250 patients. Consent: Following the determination this potential participant did not have any obvious evidence of clinical exclusion to the ABSORB III Randomized Controlled Trial, the subject was provided with a written informed consent. The purpose, procedures, risks, potential benefits of the study, as well as alternatives to participation were reviewed and questions were answered. The subject signed the informed consent agreeing to participate, providing angiographic inclusion criteria are satisfied. The subject was provided with a copy of the signed informed consent document. documented in this encounter H&P Notes * Edy Trimble MD - 07/29/2013 11:16 AM EST Romeo Coe [id number] 07/29/2013 48 y.o. Admission History and Physical PCP: SARITA LIM MD Referring: Adithya Lawson Date of Referral: 07/29/2013 I performed a history and physical exam of the patient and discussed the management of this patientwith Dr. Trimble. Admission Diagnosis: ASCVD s/p PCI to LAD Date of Evaluation: 07/29/2013 Date of Admission: 07/29/2013 Problem List: Active Non-Hospital Problems Diagnosis ??? Chest pain ??? Hx-TIA (transient ischemic attack) ??? Dyslipidemia ??? GERD (gastroesophageal reflux disease) ??? HTN (hypertension) ??? DM (diabetes mellitus) ??? Smoker HPI: This 48 y.o. male is admitted with a chief complaint of Angina. He underwent elective Coronary Angio 07/29/2013 which showed a 65% (FFR 0.74) mid LAD lesion s/p PCIwith 3.5 X 18 mm JACINDA. He tolerated the procedure well and will be admitted for observation overnight. I have reviewed the available records, interviewed and examined the patient. This patient is admitted post PCI for IV hydration, pain management, access site management in the setting of anticoagulation, serial cardiac biomarker monitoring, telemetry monitoring, evaluation oftheir medical condition, and cardiac rehabilitation. ROS/PMHx/Fam Hx/Soc Hx: Reviewed, see outpatient note. Physical Exam: Vital signs: BP 118/69 Pulse 68 Temp 36.6 ??C (97.9 ??F) (Temporal) Resp 16 Ht 177.8 cm (5'10) Wt 112.492 kg (248 lb) BMI 35.58 kg/m2 SpO2 97% Physical Exam Gen: No distress. Alert and oriented. Pleasant. Resp: CTA, no wheeze or crackles. CVS: S1, S2, No S3 or S4. No murmurs/Rubs Abd: Soft and non-tender Ext: 2+ right femoral pulse Assessment: 1. ASCVD s/p PCI to LAD Plan: 1. The working diagnosis and plan of management was reviewed with the patient and available family. 2. Questions were addressed. 3. Admit for IV hydration, serial cardiac enzymes, access site management, cardiac rehabilitation, asa and clopidogrel per protocol. Randell Giles MD Buckle Wire Inserter Pager# [phone] 07/29/2013 Cardiology Attending Note: Patient seen and examined by me and discussed with Dr. Giles. Please see his note which reflects our findings and plan. 48 yo Male with LAD Lesion (+FFR) treated in the ABSORB Trial with good angiographic result withoutapparent complication. ?? IV Hydration ?? Routine Sheath Management * Taylor Dickinson PA - 07/29/2013 8:15 AM EST Pre-Cardiac Catheterization [address] Update Please see Dr. Lawson' note dated 07/25/13 for full details regarding reason for referral for cardiaccatheterization. There has been no significant interval change in clinical status since that visit. Consent obtained Labs ok documented in this encounter Procedure Notes * Provider, Scanning - 08/01/2013 8:56 PM ESTAssociated Order(s): SCAN DOC: AUTOMATION SPECIALIST documented in this encounter Miscellaneous Notes * Consult Note - Zunilda Fletcher RN - 07/29/2013 3:34 PM EST Romeo Coe was seen today by Cardiac Rehabilitation for: (no ) An activity evaluation - On bedrest post PCI; RN will do later (yes ) Education regarding CAD, cardiac risk factors, and managing angina Info is familiar to him as he had PCI last yr. Has not been able to stop smoking. States he smokes 2-5 cigs/day . despite trying Chanix twice , gum and lozenges. Enc him to continue pursuing cessation. Does some walking for exercise but limited by FMR and hip pain. Has been on disability..Given parameters for home exercise. States he does fairly well with diet and that his diabetes is in good control. (yes ) Participation to the outpatient cardiac rehabilitation program at [facility] was discussed. He participated briefly in the program at [facility] last year ( closest to him) but did not have a good experience so stopped. A referral will be sent to [facility] the program and the patient will be contacted within 2 weeks. * Discharge Summary - Turner Tan - 07/29/2013 11:23 AM EST Inpatient Cardiology - Discharge Summary Patient Name: Romeo Coe Patient Age: 48 y.o. Birthdate: 1965 Admit date: 07/29/2013 Discharge date : 07/30/2013 Attending Physician: Edy Trimble MD Discharge Diagnoses (Hospital Problems) and Secondary Diagnoses (Chronic Problems): Active Hospital Problems Diagnosis ??? CAD (coronary artery disease), non-obstructive Priority: High -Coronary Angio 07/29/2013: 65% (FFR 0.74) mid LAD lesion s/p PCI with 3.5 X 18 mm JACINDA - [facility] 2009 post abnormal nuc stress +IW, EF normal - Recurrent angina, CCS class III - Cardiac catheterization 06/03/2012: 2 vessel CAD (LAD and LCX), +FFR of both lesions s/p PCI to pOM1 (3.0 x 18 mm Xience JACINDA) and mLAD (3.0 x 20 mm Promus Element JACINDA) Resolved Hospital Problems Diagnosis Date Resolved No resolved problems to display. Active Non-Hospital Problems Diagnosis ??? Chest pain ??? Hx-TIA (transient ischemic attack) 2002, residual numbness in R hand and leg reported per pt, no mechanical limitations ??? Dyslipidemia ??? GERD (gastroesophageal reflux disease) ??? HTN (hypertension) ??? DM (diabetes mellitus) ??? Smoker Operations/Major Procedures: Operations: CARDIAC CATHETERIZATION - Procedure: Coronary Angiography Other Major Procedures: None History of Presentation: This 48 y.o. male is admitted with a chief complaint of Angina. He has a h/o ASCVD s/p prior PCI to his LAD. He underwent elective Coronary Angio 07/29/2013 which showed a 65% (FFR 0.74) mid LAD lesion s/p PCI with 3.5 X 18 mm JACINDA. He tolerated the procedure well and was admitted for observation overnight. Hospital Course: Patient admitted following cardiac catheterization for overnight monitoring and observation. The patient did well overnight without significant chest pain or arrhythmias on telemetry. The right femoral access site was evaluated and the femoral pulse was palpable with no evidence of hematoma, bruit,or vascular compromise to the right foot. Cardiac biomarkers and a repeat ECG were reviewed. The patient ambulated with nursing without chest discomfort or exertional dyspnea. The patient met criteria for discharge home in stable condition. Important Studies and Lab Data: Labs: Lab Results Component Value Date WBC 9.0 07/30/2013 HGB 14.3 07/30/2013 HCT 43.2 07/30/2013 PLATELET 179 07/30/2013 No results found for this basename: INR in the last 168 hours Lab Results Component Value Date NA 139 07/30/2013 K 4.2 07/30/2013 CL 105 07/30/2013 CO2 22 07/30/2013 BUN 11 07/30/2013 CREATININE 0.62* 07/30/2013 No results found for this basename: TSH in the last 7068 hours No results found for this basename: HA1C in the last 7068 hours Recent Labs Basename 07/30/13 0630 07/30/13 0600 07/29/13 1805 07/29/13 1253 07/29/13 1055 CK 60 54 57 -- -- TROPONINT <0.03 -- -- <0.03 <0.03 Lab Results Component Value Date CHLPL 154 07/30/2013 HDL 36* 07/30/2013 CHOLHDL 4.3 07/30/2013 TRIG 156* 07/30/2013 LDLCHOL 87 07/30/2013 LDLDIRECT 108* 06/04/2012 Studies: None Pending Studies and Lab Data: None Discharge Conditions/Prognosis: Ambulatory without chest pain Discharge to: Home Discharge Medications: Current Discharge Medication List New Meds Dose Details pantoprazole (PROTONIX) 20 mg tablet 20 mg Take 1 tablet by mouth daily. Qty: 90 tablet Refills: 5 !! nitroGLYcerin (NITROSTAT) 0.4 mg SL tablet 0.[address] 1 tablet under the tongue daily as needed for Chest pain. Qty: 90 tablet Refills: 4 !! - Potential duplicate medications found. Please discuss with provider. Continued medications, unchanged Dose Details metFORMIN (GLUCOPHAGE) 850 mg tablet 850 mg Take 850 mg by mouth 2 times daily (with meals). gabapentin (NEURONTIN) 300 mg capsule 300 mg Take 300 mg by mouth 3 times daily. levofloxacin (LEVAQUIN) 250 mg tablet 500 mg Take 500 mg by mouth daily. clopidogrel (PLAVIX) 75 mg tablet 75 mg Take 1 tablet by mouth daily. Qty: 30 tablet Refills: 2 isosorbide mononitrate (IMDUR) 120 mg 24 hr tablet 120 mg Take 1 tablet by mouth daily. Qty: 30 tablet Refills: 2 metoprolol tartrate (LOPRESSOR) 50 mg tablet 50 mg Take 1 tablet by mouth 2 times daily. Qty: 60 tablet Refills: 2 aspirin 81 mg EC tablet 81 mg Take 1 tablet by mouth daily. Qty: 30 tablet rosuvastatin (CRESTOR) 10 mg tablet 10 mg Take 1 tablet by mouth daily. Qty: 30 tablet Refills: 3 !! nitroGLYcerin (NITROSTAT) 0.4 mg SL tablet 0.[address] 0.4 mg under the tongue every 5 minutes as needed. DILTiazem (DILACOR XR) 240 mg 24 hr capsule 240 mg Take 240 mg by mouth daily. DULoxetine (CYMBALTA) 60 mg capsule 60 mg Take 60 mg by mouth 2 times daily. cyclobenzaprine (FLEXERIL) 10 mg tablet 10 mg Take 10 mg by mouth daily as needed. furosemide (LASIX) 20 mg tablet 20 mg Take 20 mg by mouth daily as needed. magnesium oxide (MAG-OX) 400 mg tablet 400 mg Take 400 mg by mouth 2 times daily. acetaminophen (TYLENOL ARTHRITIS) 650 mg CR tablet 650 mg Take 650 mg by mouth every 8 hours as needed. Do not exceed 6 tabs in 24 hours quinine 260 mg tablet 260 mg Take 260 mg by mouth daily as needed. !! - Potential duplicate medications found. Please discuss with provider. Medications STOPPED Dose omeprazole (PRILOSEC) 20 mg capsule 20 mg Updated Allergies/ADRs: Allergies Allergen Reactions ??? Thallium-201 Severe cardiac event Follow-up Recommendations for Providers: Continue ASA indefinitely and Clopidogrel for at least 1 year Aggressive risk factors modifications, diet and exercise Continue Rosuvastatin and target LDL< 70 mg/dl Follow cardiology clinic in 4 weeks. Instructions Given to Patient at Discharge: Provider Instructions Anti-coagulation follow up: N/A Call your doctor if: Chest pain, dyspnea, pain or swelling in legs occurs. If you have non-emergent questions between now and the time of your follow up appointments: During 8am-5pm Thursday through Thursday call [phone] to speak with a nurse in the cardiology clinic All other times call [phone] and ask to speak to the hospital fellow fusion juncture grinder. Return to work: One week Driving: No driving for 48 hours after catheterization. Follow up Appointments: PCP Call for appointment in 1-2 weeks. 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 Please call for appointment Home oxygen therapy: N/A Arrangements for VNA/home care: none General Instructions None Future Appointments and Orders Future Orders Please Complete By Expires Referral to Cardiac Rehab [[id number] Custom] Process Instructions: If no progress note charted, please enter Clinical details in comments. Scheduling Instructions: Comments: Cardiac rehab @ [place] Questions: Responses: Reason for referral angina, stent Provider Contact Information: Dr. Atilio Giles Section of Cardiology [facility] [phone] Discharge References/Attachments: Discharge References/Attachments None Signed: Turner Tan DATE: 07/30/2013 * Miscellaneous - Provider, Scanning - 07/29/2013 8:03 AM EST documented in this encounter Plan of Treatment Scheduled Referrals Name Type Priority Associated Diagnoses Orde r Schedule Referral to Cardiac Rehab Outpatient Referral Routine S/P coronary artery stent placement Ordered: 07/30/2013 documented as of this encounter Procedures Procedure Name Priority Date/Time Associated Diagnosis Comments AUTOMATION SPECIALIST SCAN 08/01/2013 8:56 PM EST EKG 12-LEAD Routine 07/30/2013 8:41 AM EST ASCVD (arteriosclerotic cardiovascular disease) POCT GLUCOSE Routine 07/30/2013 8:09 AM EST DIFFERENTIAL, AUTOMATED Routine 07/30/2013 6:35 AM EST CBC (WITH DIFF) Routine 07/30/2013 6:35 AM EST BMP W/FASTING GLUCOSE Routine 07/30/2013 6:30 AM EST CARDIAC ENZYMES ([facility]/CGP) Routine 07/30/2013 6:30 AM EST LIPID PANEL (REFLEX DIRECT LDL) Routine 07/30/2013 6:30 AM EST MISCELLANEOUS LAB REQUEST Timed 07/30/2013 6:00 AM EST POCT GLUCOSE Routine 07/30/2013 4:18 AM EST POCT GLUCOSE Routine 07/30/2013 12:17 AM EST POCT GLUCOSE Routine 07/29/2013 8:02 PM EST MISCELLANEOUS LAB REQUEST Timed 07/29/2013 6:05 PM EST POCT GLUCOSE Routine 07/29/2013 4:53 PM EST CARDIAC ENZYMES ([facility]/CGP) STAT 07/29/2013 12:53 PM EST POCT GLUCOSE Routine 07/29/2013 12:36 PM EST EKG 12-LEAD Routine 07/29/2013 11:26 AM EST ASCVD (arteriosclerotic cardiovascular disease) CARDIAC ENZYMES ([facility]/CGP) Routine 07/29/2013 10:55 AM EST MISCELLANEOUS LAB REQUEST Routine 07/29/2013 9:24 AM EST EKG 12-LEAD Routine 07/29/2013 7:50 AM EST ASCVD (arteriosclerotic cardiovascular disease) POCT GLUCOSE Routine 07/29/2013 7:46 AM EST ELECTROLYTES PANEL STAT 07/29/2013 6: 06 AM EST ASCVD (arteriosclerotic cardiovascular disease) documented in this encounter Results * SCAN DOC: AUTOMATION SPECIALIST (08/01/2013 8:56 PM EST) Anatomical Region Laterality Modality Other Narrative 08/01/2013 8:56 PM EST Procedure Note Provider, Scanning - 08/01/2013 8:56 PM EST Scanning Provider MEDIA MGR SCAN EXT O RDR/RSLT * EKG 12 Lead (07/30/2013 8:41 AM EST) Ventricular rate 67 BPM MUSE SYSTEM Atrial Rate 67 BPM MUSE SYSTEM P-R Interval 154 ms MUSE SYSTEM QRS Duration 96 ms MUSE SYSTEM Q-T Interval 384 ms MUSE SYSTEM QTC Calculated (Bezet) 405 ms MUSE SYSTEM Calculated P [place] 7 degrees MUSE SYSTEM Calculated R Summit [place] 24 degrees MUSE SYSTEM Calculated T [place] 20 degrees MUSE SYSTEM INTERPRETATION Normal sinus rhythm Normal ECG When compared with ECG of 29-JUL-2013 11:26, No significant change was found Confirmed by MD JACKSON, [place] ([id number]) on 07/30/2013 11:46:49 AM MUSE SYSTEM 07/30/2013 8:41 AM EST 07/30/2013 11:46 AM EST Edy Damon MD ECG ORDERABLES MUSE SYSTEM * POCT Glucose (07/30/2013 8:09 AM EST) Glucose, POC 156 60 - 199 mg/dL [facility] Comment: Supplemental ranges: <110 mg/dL before meals <200 mg/dL all other times of the day Blood specimen (specimen) 07/30/2013 8:09 AM EST 07/30/2013 8:09 AM EST Supa Lopez MD POINT OF CARE TEST ORDERABLES [facility] * Differential, Automated (07/30/2013 6:35 AM EST) Neutrophil % 60.0 34.0 - 71.0 % [facility] Neutrophil Absolute 5.42 1.50 - 6.30 x10(3)/mcL [facility] Lymph % 27.8 19.0 - 53.0 % [facility] Lymphocytes Abs 2.5 1.0 - 3.6 x10(3)/mcL [facility] Monocyte % 8.0 4.0 - 13.0 % [facility] Monocyte Abs 0.7 0.2 - 1.0 x10(3)/mcL [facility] Eos % 3.4 0.0 - 7.0 % [facility] Eosinophils Abs 0.3 0.0 - 0.5 x10(3)/mcL [facility] Basophil % 0.4 0.0 - 2.0 % [facility] Baso Absolute 0.0 0.0 - 0.2 x10(3)/mcL [facility] Immature Gran % 0.40 0.00 - 0.66 % [facility] Comment: Immature granulocytes(IG's)percentage and absolute count will include metamyelocytes, myelocytes, and promyelocytes. Blood smears from CBCs yielding IG's will be scanned manually for concordance. If this scan disagrees with the automated IG or if promyelocytes are noted, a manual differential will be performed. Immature Gran Absolute 0.04 0.00 - 0.05 x10(3)/mcL [facility] Blood specimen (specimen) 07/30/2013 6:35 AM EST 07/30/2013 6:41 AM EST Edy Damon MD HEMATOLOGY ORDERABLE S [facility] * CBC (with Diff) (07/30/2013 6:35 AM EST) White Blood Cell 9.0 4.0 - 10.0 x10(3)/mcL [facility] Red Blood Cell 4.93 4.63 - 6.08 x10(6)/mcL [facility] Hemoglobin 14.3 13.7 - 17.5 gm/dL [facility] Hematocrit 43.2 40.0 - 51.0 % [facility] Mean Cell Volume 87.6 79.0 - 92.0 fL [facility] Mean Cell Hemoglobin 29.0 25.6 - 32.2 pg [facility] Mean Cell Hemoglobin Concentration 33.1 32.0 - 36.5 gm/dL [facility] Platelet 179 145 - 370 x10(3)/mcL [facility] RDW Standard Deviation 44.5 35.0 - 46.0 fL [facility] RDW coefficient of variation 13.9 10.9 - 14.4 % [facility] Mean Platelet Volume 10.8 9.0 - 12.0 fL [facility] Blood specimen (specimen) 07/30/2013 6:35 AM EST 07/30/2013 6:41 AM EST Narrative Resulting Agency Comment Spec In Lab Edy Damon MD HEMATOLOGY ORDERABLE S [facility] * (ABNORMAL) Lipid panel (fasting) (07/30/2013 6:30 AM EST) Cholesterol, Total 154 <=199 mg/dL [facility] Comment: Recommendations of the NCEP Adult Treatment Panel for the following risk cutoff thresholds for the [place] population: Desirable: <200 mg/dL Borderline High: 200-239 mg/dL High: > or = 240 mg/dL Triglyceride 156(H) <=149 mg/dL [facility] Comment: Reference Range: Normal triglycerides: ??<150 mg/dL Borderline high: ??150-199 mg/dL High: ??200-499 mg/dL Very high: ??>[id number]=872 mg/dL RACHEL 2001; 285(19):9408-7315 HDL Cholesterol 36(L) >=40 mg/dL [facility] Comment: Reference range: ??Low HDL: ?? < 40 mg/dL ??Normal: ?40-60 mg/dL ??Desirable: > 60 mg/dL RACHEL 2001; 285(19):7308-9549 LDL Cholesterol 87 <=99 mg/dL [facility] Comment: Reference range: ?? Optimal: ?<100 mg/dL ?? Near Optimal/Above Optimal: ?? 100-129 mg/dL ?? Borderline high: ?130-159 mg/dL ?? High: ? 160-189 mg/dL ?? Very high: ?>hy=428 mg/dL RACHEL 2001: 285(19):6294-2562 Cholesterol/HDL Ratio 4.3 ratio [facility] Comment: A Cholesterol to HDL ratio below 4:1 is desirable. ??Studies suggest that increased CAD risk occurs at ratios above 5 for females and above 6 for men. ? [place] Heart Association ??(http://www.americanheart.org) ? Pallavi Int Med, 1994; 121:641 ? AM J Med, 1998; 105(1A):48S Blood specimen (specimen) 07/30/2013 6:30 AM EST 07/30/2013 6:44 AM EST Narrative Resulting Agency Comment Spec In Lab Edy Damon MD CHEMISTRY ORDERABLES [facility] * (ABNORMAL) BMP w/fasting Glucose (07/30/2013 6:30 AM EST) Glucose Fasting 156(H) 65 - 99 mg/dL [facility] Comment: ?Fasting* Glucose Interpretive Criteria Normal ?65-99 [...] of Diabetes Mellitus, Position Statement from the [place] Diabetes Association. ??Diabetes Care, Volume 33, Supplement 1, Aug 2009 Blood Urea Nitrogen 11 10 - 20 mg/dL [facility] Creatinine 0.62(L) 0.80 - 1.50 mg/dL [facility] Comment: Please note that the pediatric reference intervals supplied above were not validated at [facility]. Results from pediatric patients should be interpreted in conjunction to the patient's age, height and muscle mass. Sodium 139 135 - 145 mmol/L [facility] Potassium 4.2 3.5 - 5.0 mmol/L [facility] Comment: Please note: ??Patients with WBC >100,000 may have falsely elevated Potassium levels. ??For accurate Potassium quantification in these patients send serum separator tube (gold top) for subsequent determinations. ??Contact the Clinical Chemistry Laboratory if there are any questions. Chloride 105 98 - 107 mmol/L [facility] Carbon Dioxide 22 22 - 31 mmol/L [facility] Anion Gap 12 5 - 15 mmol/L [facility] Calcium 8.9 8.5 - 10.5 mg/dL [facility] Est Glomerular Filtration Rate >60 >=60 [facility] Comment: This estimated GFR (eGFR) value was [...] the following links into your internet browser. http://www.nkdep.nih.gov/lab-evaluation.shtml http://www.kidney.org/professionals/ Blood specimen (specimen) 07/30/2013 6:30 AM EST 07/30/2013 6:44 AM EST Narrative Resulting Agency Comment Spec In Lab Edy Damon MD CHEMISTRY ORDERABLES [facility] * Cardiac Enzymes (07/30/2013 6:30 AM EST) Troponin-T <0.03 <=0.03 ng/mL [facility] Comment: 0.03 ng/mL: Represents the 99th percentile upper reference limit for normals. >0.03 ng/mL: Elevated cardiac troponin T level indicative of myocardial damage. Diagnosis of acute, evolving or recent CO requires a typical rise and gradual fall [...] consensus document of the Joint Society of Cardiology/[place] College of Cardiology Committee for the redefinition of myocardial infarction. ??Journal of the [place] College of Cardiology 2000; 36: 959-969] Creatine Kinase 60 0 - 200 unit/L [facility] Blood specimen (specimen) 07/30/2013 6:30 AM EST 07/30/2013 6:44 AM EST Narrative Resulting Agency Comment Spec In Lab Edy Damon MD CHEMISTRY ORDERABLES Performing Organization Address [facility] de Phone Number [facility] * Miscellaneous Lab request (07/30/2013 6:00 AM EST) Label Request received in lab. [facility] Blood specimen (specimen) 07/30/2013 6:00 AM EST 07/30/2013 6:31 AM EST Edy Damon MD LAB SEND OUT ORDERAB LES Performing Organization Address [facility] de Phone Number [facility] * POCT Glucose (07/30/2013 4:18 AM EST) Glucose, POC 145 60 - 199 mg/dL [facility] Comment: Supplemental ranges: <110 mg/dL before meals <200 mg/dL all other times of the day Blood specimen (specimen) 07/30/2013 4:18 AM EST 07/30/2013 4:18 AM EST Supa Lopez MD POINT OF CARE TEST ORDERABLES Performing Organization Address [facility]/ZIP Co de Phone Number [facility] * POCT Glucose (07/30/2013 12:17 AM EST) Glucose, POC 129 60 - 199 mg/dL [facility] Comment: Supplemental ranges: <110 mg/dL before meals <200 mg/dL all other times of the day Blood specimen (specimen) 07/30/2013 12:17 AM EST 07/30/2013 12:17 AM EST Supa Lopez MD POINT OF CARE TEST ORDERABLES Performing Organization Address [facility] de Phone Number [facility] * POCT Glucose (07/29/2013 8:02 PM EST) Glucose, POC 127 60 - 199 mg/dL [facility] Comment: Supplemental ranges: <110 mg/dL before meals <200 mg/dL all other times of the day Blood specimen (specimen) 07/29/2013 8:02 PM EST 07/29/2013 8:02 PM EST Supa Lopez MD POINT OF CARE TEST ORDERABLES Performing Organization Address [facility] de Phone Number [facility] * Miscellaneous Lab request (07/29/2013 6:05 PM EST) Label Request received in lab. [facility] Blood specimen (specimen) 07/29/2013 6:05 PM EST 07/29/2013 6:17 PM EST Edy Damon MD LAB SEND OUT ORDERAB LES Performing Organization Address [facility] Co de Phone Number [facility] * POCT Glucose (07/29/2013 4:53 PM EST) Glucose, POC 138 60 - 199 mg/dL [facility] Comment: Supplemental ranges: <110 mg/dL before meals <200 mg/dL all other times of the day Blood specimen (specimen) 07/29/2013 4:53 PM EST 07/29/2013 4:53 PM EST Supa Lopez MD POINT OF CARE TEST ORDERABLES Performing Organization Address [facility] de Phone Number [facility] * Cardiac Enzymes (07/29/2013 12:53 PM EST) Troponin-T <0.03 <=0.03 ng/mL [facility] Comment: 0.03 ng/mL: Represents the 99th percentile upper reference limit for normals. >0.03 ng/mL: Elevated cardiac troponin T level indicative of myocardial damage. Diagnosis of acute, evolving or recent CO requires a typical rise and gradual fall [...] consensus document of the Joint Society of Cardiology/[place] College of Cardiology Committee for the redefinition of myocardial infarction. ??Journal of the [place] College of Cardiology 2000; 36: 959-969] Creatine Kinase 55 0 - 200 unit/L [facility] Blood specimen (specimen) 07/29/2013 12:53 PM EST 07/29/2013 12:59 PM EST Narrative Resulting Agency Comment Spec In Lab Edy Damon MD CHEMISTRY ORDERABLES Performing Organization Address [facility] de Phone Number [facility] * POCT Glucose (07/29/2013 12:36 PM EST) Glucose, POC 142 60 - 199 mg/dL [facility] Comment: Supplemental ranges: <110 mg/dL before meals <200 mg/dL all other times of the day Blood specimen (specimen) 07/29/2013 12:36 PM EST 07/29/2013 12:36 PM EST Supa Lopez MD POINT OF CARE TEST ORDERABLES Performing Organization Address [facility] de Phone Number [facility] * EKG 12 Lead (07/29/2013 11:26 AM EST) Ventricular rate 67 BPM MUSE SYSTEM Atrial Rate 67 BPM MUSE SYSTEM P-R Interval 164 ms MUSE SYSTEM QRS Duration 90 ms MUSE SYSTEM Q-T Interval 394 ms MUSE SYSTEM QTC Calculated (Bezet) 416 ms MUSE SYSTEM Calculated P [place] 48 degrees MUSE SYSTEM Calculated R [place] 33 degrees MUSE SYSTEM Calculated T [place] 32 degrees MUSE SYSTEM INTERPRETATION Normal sinus rhythm Normal ECG When compared with ECG of 29-JUL-2013 07:50, (unconfirmed) No significant change was found Confirmed by MD SELINA, FRED ([id number]) on 07/30/2013 7:39:47 AM MUSE SYSTEM 07/29/2013 11:2 6 AM EST 07/30/2013 7:39 AM EST Edy Damon MD ECG ORDERABLES Performing Organization Address [facility] de Phone Number MUSE SYSTEM * Cardiac Enzymes (07/29/2013 10:55 AM EST) Troponin-T <0.03 <=0.03 ng/mL [facility] [employer] Comment: 0.03 ng/mL: Represents the 99th percentile upper reference limit for normals. >0.03 ng/mL: Elevated cardiac troponin T level indicative of myocardial damage. Diagnosis of acute, evolving or recent CO requires a typical rise and gradual fall [...] consensus document of the Joint Society of Cardiology/[place] College of Cardiology Committee for the redefinition of myocardial infarction. ??Journal of the [place] College of Cardiology 2000; 36: 959-969] Creatine Kinase 50 0 - 200 unit/L [facility] Blood specimen (specimen) 07/29/2013 10:55 AM EST 07/29/2013 11:08 AM EST Narrative Resulting Agency Comment Spec In Lab Edy Damon MD CHEMISTRY ORDERABLES Performing Organization Address [facility] de Phone Number [facility] * Miscellaneous Lab request (07/29/2013 9:24 AM EST) Label Request received in lab. [facility] Blood specimen (specimen) 07/29/2013 9:24 AM EST 07/29/2013 10:56 AM EST Edy Damon MD LAB SEND OUT ORDERAB LES Performing Organization Address [facility] Phone Number [facility] * EKG 12 Lead (07/29/2013 7:50 AM EST) Ventricular rate 72 BPM MUSE SYSTEM Atrial Rate 72 BPM MUSE SYSTEM P-R Interval 136 ms MUSE SYSTEM QRS Duration 94 ms MUSE SYSTEM Q-T Interval 372 ms MUSE SYSTEM QTC Calculated (Bezet) 407 ms MUSE SYSTEM Calculated P [place] 3 degrees MUSE SYSTEM Calculated R [place] 42 degrees MUSE SYSTEM Calculated T [place] 36 degrees MUSE SYSTEM INTERPRETATION Normal sinus rhythm Normal ECG When compared with ECG of 15-JUN-2012 12:40, No significant change was found Confirmed by MD SELINA, FRED ([id number]) on 07/30/2013 7:24:11 AM MUSE SYSTEM 07/29/2013 7:50 AM EST 07/30/2013 7:24 AM EST Edy Damon MD ECG ORDERABLES Performing Organization Address [facility] Co de Phone Number MUSE SYSTEM * POCT Glucose (07/29/2013 7:46 AM EST) Glucose, POC 160 60 - 199 mg/dL [facility] Comment: Supplemental ranges: <110 mg/dL before meals <200 mg/dL all other times of the day Blood specimen (specimen) 07/29/2013 7:46 AM EST 07/29/2013 7:46 AM EST Supa Lopez MD POINT OF CARE TEST ORDERABLES Performing Organization Address [facility] Co de Phone Number [facility] * (ABNORMAL) Electrolytes panel (07/29/2013 6:06 AM EST) Sodium 145 135 - 145 mmol/L [facility] Potassium 4.3 3.5 - 5.0 mmol/L [facility] Comment: Please note: ??Patients with WBC >100,000 may have falsely elevated Potassium levels. ??For accurate Potassium quantification in these patients send serum separator tube (gold top) for subsequent determinations. ??Contact the Clinical Chemistry Laboratory if there are any questions. Chloride 106 98 - 107 mmol/L [facility] Carbon Dioxide 23 22 - 31 mmol/L [facility] Anion Gap 16(H) 5 - 15 mmol/L [facility] Blood specimen (specimen) 07/29/2013 6:06 AM EST 07/29/2013 6:11 AM EST Narrative Resulting Agency Comment Spec In Lab Juan Ball MD CHEMISTRY ORDERABLES Performing Organization Address [facility] Co de Phone Number [facility] documented in this encounter Visit Diagnoses Diagnosis ASCVD (arteriosclerotic cardiovascular disease) Unspecified cardiovascular disease S/P coronary artery stent placement Postsurgical percutaneous transluminal coronary angioplasty status ASCVD (arteriosclerotic cardiovascular disease) Unspecified cardiovascular disease documented in this encounter Administered Medications Inactive Administered Medications - up to 3 most recent administrations Medication Order MAR Action Action Date Dose Rate Site adenosine 90 mg in sodium chloride 0.9% 90 mL infusion (PATIENT FINANCIAL REPRESENTATIVE) CONTINUOUS PRN, Starting on Thu07/29/13 at 0955, Until Thu07/29/13 at 1119, Cath (Intra-Procedure), Routine New Bag 07/29/2013 9:55 AM EST 140 mcg/kg/min 945 mL/hr aspirin chewable tablet ONCE PRN, Starting on Thu07/29/13 at 1020, Until Thu07/29/13 at 1119, Cath (Intra-Procedure), Routine Given 07/29/2013 10:20 AM EST 325 mg aspirin EC tablet 81 mg 81 mg, Oral, DAILY, First dose on 12/7/13 at 0900, Until Discontinued, Routine Given 07/30/2013 8:26 AM EST 81 mg clopidogrel (PLAVIX) tablet 75 mg 75 mg, Oral, DAILY, First dose on Thu07/29/13 at 1245, Until Discontinued, Routine Given 07/30/2013 8:26 AM EST 75 mg clopidogrel (PLAVIX) tablet ONCE PRN, Starting on Thu07/29/13 at 1013, Until Thu07/29/13 at 1119, Intra-Operative (Intra-Procedure), Routine Given 07/29/2013 10:13 AM EST 600 mg cyclobenzaprine (FLEXERIL) tablet 10 mg 10 mg, Oral, NIGHTLY, First dose on Thu07/29/13 at 2100, Until Discontinued, Routine Given 07/29/2013 9:22 PM EST 10 mg diaZEPam (VALIUM) tablet 5 mg 5 mg, Oral, ONCE, 1 dose, On Thu07/29/13 at 0800, Cath (Day of Procedure), Routine Given 07/29/2013 8:38 AM EST 5 mg DILTiazem (DILACOR XR) XR capsule 240 mg 240 mg, Oral, DAILY, First dose on Thu07/30/13 at 0900, Until Discontinued, Routine Given 07/30/2013 8:26 AM EST 240 mg diphenhydrAMINE (BENADRYL) capsule 25 mg 25 mg, Oral, ONCE, 1 dose, On Thu07/29/13 at 0800, Cath (Day of Procedure), Routine Given 07/29/2013 8:39 AM EST 25 mg DULoxetine (CYMBALTA) capsule 60 mg 60 mg, Oral, 2 TIMES DAILY, First dose on Thu07/29/13 at 2100, Until Discontinued, Routine Given 07/30/2013 8:26 AM EST 60 mg Given 07/29/2013 9:22 PM EST 60 mg fentaNYL 50mcg/mL injection ONCE PRN, Starting on Thu07/29/13 at 1002, Until Thu07/29/13 at 1119, Pain, Intra-Operative (Intra-Procedure), Routine Given 07/29/2013 10:[address] 25 mcg fentaNYL 50mcg/mL injection ONCE PRN, Starting on Thu07/29/13 at 1011, Until Thu07/29/13 at 1119, Pain, Cath (Intra-Procedure), Routine Given 07/29/2013 10:11 AM EST 25 mcg fentaNYL 50mcg/mL injection ONCE PRN, Starting on Thu07/29/13 at 1050, Until Thu07/29/13 at 1119, Pain, Cath (Intra-Procedure), Routine Given 07/29/2013 10:50 AM EST 25 mcg furosemide (LASIX) tablet 20 mg 20 mg, Oral, DAILY, First dose on Thu07/29/13 at 1245, Until Discontinued, Routine Given 07/30/2013 8:26 AM EST 20 mg gabapentin (NEURONTIN) capsule 300 mg 300 mg, Oral, 3 TIMES DAILY, First dose on Thu07/29/13 at 1500, Until Discontinued, Routine Given 07/30/2013 8:26 AM EST 300 mg Given 07/29/2013 9:22 PM EST 300 mg Given 07/29/2013 3:00 PM EST 300 mg heparin (porcine) injection ONCE PRN, Starting on Thu07/29/13 at 0954, Until Thu07/29/13 at 1119, Cath (Intra-Procedure), Routine Given 07/29/2013 10:34 AM EST 2,500 Units Given 07/29/2013 10:23 AM EST 1,500 Units Given 07/29/2013 10:04 AM EST 2,500 Units insulin aspart (novoLOG) PEN injection 1-4 Units 1-4 Units, Subcutaneous, EVERY 4 HOURS SCHEDULED, First dose on Thu07/29/13 at 1245, Until Discontinued, CORRECTION BOLUS Sensitive to insulin [...] no insulin and resume prior schedule., Routine Given 07/30/2013 8:15 AM EST 1 Units Given 07/30/2013 4:24 AM EST 1 Units iohexol (OMNIPAQUE) 350 mg iodine/mL injection ONCE PRN, Starting on Thu07/29/13 at 1100, Until Thu07/29/13 at 1119, Per Protocol, Cath (Intra-Procedure), Routine Given 07/29/2013 11:00 AM EST 197 mLs isosorbide mononitrate (IMDUR) CR tablet 120 mg 120 mg, Oral, EVERY MORNING, First dose on 07/30/13 at 0600, Until Discontinued, Routine Given 07/30/2013 6:38 AM EST 120 mg metoprolol tartrate (LOPRESSOR) tablet 50 mg 50 mg, Oral, 2 TIMES DAILY, First dose on Thu07/29/13 at 1245, Until Discontinued, Routine Given 07/30/2013 8:26 AM EST 50 mg Given 07/29/2013 9:22 PM EST 50 mg midazolam (VERSED) injection ONCE PRN, Starting on Thu07/29/13 at 1002, Until Thu07/29/13 at 1119, Sleep, Cath (Intra-Procedure), Routine Given 07/29/2013 10:49 AM EST 1 mg Given 07/29/2013 10:02 AM EST 1 mg nitroGLYCerin 100 mcg/mL intracoronary dilution ONCE PRN, Starting on Thu07/29/13 at 1004, Until Thu07/29/13 at 1119, Cath (Intra-Procedure), Routine Given 07/29/2013 10:49 AM EST 200 mcg Given 07/29/2013 10:16 AM EST 200 mcg Given 07/29/2013 10:04 AM EST 200 mcg pantoprazole (PROTONIX) tablet 20 mg 20 mg, Oral, DAILY, First dose on 07/30/13 at 0900, Until Discontinued, Restricted to patients on clopidpgrel (PLAVIX) who require a proton pump inhibitor Given 07/30/2013 8:26 AM EST 20 mg rosuvastatin (CRESTOR) tablet 10 mg 10 mg, Oral, EVERY EVENING, First dose on Thu07/29/13 at 1700, Until Discontinued, Routine Given 07/29/2013 5:00 PM EST 10 mg sodium chloride 0.9 % flush 5 mL 5 mL, Intravenous, EVERY 12 HOURS, First dose on Thu07/29/13 at 0800, Until Discontinued, Cath (Day of Procedure), Routine Given by Other 07/29/2013 8:00 AM EST 5 mLs sodium chloride 0.9% infusion 200 mL/hr, Intravenous, CONTINUOUS, Starting on Thu07/29/13 at 0800, Until Thu07/29/13 at 1119, Cath (Day of Procedure) New Bag 07/29/2013 10:01 AM EST 500 mLs Restarted 07/29/2013 8:00 AM EST 200 mL/hr 200 mL/hr sodium chloride 0.9% infusion 150 mL/hr, Intravenous, CONTINUOUS, Starting on Thu07/29/13 at 1145, Until Thu07/29/13 at 1944 New Bag 07/29/2013 11:25 AM EST 150 mL/hr 150 mL/hr documented in this encounter Active and Recently Administered Medications Times are shown in EST. Scheduled Medication Order 07/28/2013 07/29/2013 07/30/2013 aspirin EC tablet 81 mg (CANCELED) 81 mg, Oral, DAILY, First dose on 07/30/13 at 0900, Until Discontinued, Routine 1342 ([facility] Hold - Provider: Admin Adt - Reason: Transfer to a Procedural area)1343 ([facility] Unhold - Provider: Admin Adt) 0826 (Given - Provider: Reina Randall RN) clopidogrel (PLAVIX) tablet 75 mg (CANCELED) 75 mg, Oral, DAILY, First dose on Thu07/29/13 at 1245, Until Discontinued, Routine 1245 (Not Given - Provider: Jessica Barr RN - Reason: See comment - Comment: pt took in a.m.)1342 ([facility] Hold - Provider: Admin Adt - Reason: Transfer to a Procedural area)1343 ([facility] Unhold - Provider: Admin Adt) 0826 (Given - Provider: Reina Randall RN) cyclobenzaprine (FLEXERIL) tablet 10 mg (CANCELED) 10 mg, Oral, NIGHTLY, First dose on Thu07/29/13 at 2100, Until Discontinued, Routine 1342 ([facility] Hold - Provider: Admin Adt - Reason: Transfer to a Procedural area)1343 ([facility] Unhold - Provider: Admin Adt)2122 (Given - Provider: Mahesh Hurt RN) diaZEPam (VALIUM) tablet 5 mg (COMPLETED) 5 mg, Oral, ONCE, 1 dose, On Thu07/29/13 at 0800, Cath (Day of Procedure), Routine 0838 (Given - Provider: Kemi Mullen, VERO) DILTiazem (DILACOR XR) XR capsule 240 mg (CANCELED) 240 mg, Oral, DAILY, First dose on 07/30/13 at 0900, Until Discontinued, Routine 1342 ([facility] Hold - Provider: Admin Adt - Reason: Transfer to a Procedural area)1343 ([facility] Unhold - Provider: Admin Adt) 0826 (Given - Provider: Reina Randall RN) diphenhydrAMINE (BENADRYL) capsule 25 mg (COMPLETED) 25 mg, Oral, ONCE, 1 dose, On Thu07/29/13 at 0800, Cath (Day of Procedure), Routine 0839 (Given - Provider: Kemi Mullen RN) DULoxetine (CYMBALTA) capsule 60 mg (CANCELED) 60 mg, Oral, 2 TIMES DAILY, First dose on Thu07/29/13 at 2100, Until Discontinued, Routine 1342 ([facility] Hold - Provider: Admin Adt - Reason: Transfer to a Procedural area)1343 ([facility] Unhold - Provider: Admin Adt)2122 (Given - Provider: Mahesh Hurt, RN) 0826 (Given - Provider: Reina Randall RN) furosemide (LASIX) tablet 20 mg (CANCELED) 20 mg, Oral, DAILY, First dose on Thu07/29/13 at 1245, Until Discontinued, Routine 1245 (Not Given - Provider: Jessica Barr RN - Reason: Patient/family refused)1342 ([facility] Hold - Provider: Admin Adt - Reason: Transfer to a Procedural area)1343 ([facility] Unhold - Provider: Admin Adt) 0826 (Given - Provider: Reina Randall RN) gabapentin (NEURONTIN) capsule 300 mg (CANCELED) 300 mg, Oral, 3 TIMES DAILY, First dose on Thu07/29/13 at 1500, Until Discontinued, Routine 1342 ([facility] Hold - Provider: Admin Adt - Reason: Transfer to a Procedural area)1343 ([facility] Unhold - Provider: Admin Adt)1500 (Given - Provider: Jessica Barr, VERO)2122 (Given - Provider: Mahesh Hurt, RN) 0826 (Given - Provider: Reina Randall RN) insulin aspart (novoLOG) PEN injection 1-4 Units (CANCELED) 1-4 Units, Subcutaneous, EVERY 4 HOURS SCHEDULED, First dose on Thu07/29/13 at 1245, Until Discontinued, CORRECTION BOLUS Sensitive to insulin [...] no insulin and resume prior schedule., Routine 1245 (Not Given - Provider: Jessica Barr RN - Reason: Order parameters not met)1342 ([facility] Hold - Provider: Admin Adt - Reason: Transfer to a Procedural area)1343 ([facility] Unhold - Provider: Admin Adt)1600 (Not Given - Provider: Jessica Barr RN - Reason: Order parameters not met)2002 (Not Given - Provider: Mahesh Hurt RN - Reason: Contraindicated) 001 (Not Given - Provider: Mahesh Hurt RN - Reason: Contraindicated)0424 (Given - Provider: Mahesh Hurt RN)0815 (Given - Provider: Reina Randall RN - Comment: FSBS 156) isosorbide mononitrate (IMDUR) CR tablet 120 mg (CANCELED) 120 mg, Oral, EVERY MORNING, First dose on 07/30/13 at 0600, Until Discontinued, Routine 1342 ([facility] Hold - Provider: Admin Adt - Reason: Transfer to a Procedural area)1343 ([facility] Unhold - Provider: Admin Adt) 0638 (Given - Provider: Mahesh Hurt RN) metoprolol tartrate (LOPRESSOR) tablet 50 mg (CANCELED) 50 mg, Oral, 2 TIMES DAILY, First dose on Thu07/29/13 at 1245, Until Discontinued, Routine 1245 (Not Given - Provider: Jessica Barr RN - Reason: See comment - Comment: pt took in a.m.)1342 ([facility] Hold - Provider: Admin Adt - Reason: Transfer to a Procedural area)1343 ([facility] Unhold - Provider: Admin Adt)212 (Given - Provider: Mahesh Hurt RN) 08 (Given - Provider: Reina Randall RN) pantoprazole (PROTONIX) tablet 20 mg 20 mg, Oral, DAILY, First dose on 07/30/13 at 0900, Until Discontinued, Restricted to patients on clopidpgrel (PLAVIX) who require a proton pump inhibitor 1342 ([facility] Hold - Provider: Admin Adt - Reason: Transfer to a Procedural area)1343 ([facility] Unhold - Provider: Admin Adt) 0826 (Given - Provider: Reina Randall RN) rosuvastatin (CRESTOR) tablet 10 mg (CANCELED) 10 mg, Oral, EVERY EVENING, First dose on Thu07/29/13 at 1700, Until Discontinued, Routine 1342 ([facility] Hold - Provider: Admin Adt - Reason: Transfer to a Procedural area)1343 ([facility] Unhold - Provider: Admin Adt)1700 (Given - Provider: Jessica Barr RN) sodium chloride 0.9 % flush 5 mL (CANCELED) 5 mL, Intravenous, EVERY 12 HOURS, First dose on Thu07/29/13 at 0800, Until Discontinued, Cath (Day of Procedure), Routine 0800 (Given by Other - Provider: Jessica Barr RN) Continuous Medication Order 07/28/2013 07/29/2013 07/30/2013 sodium chloride 0.9% infusion (CANCELED) 200 mL/hr, Intravenous, CONTINUOUS, Starting on Thu07/29/13 at 0800, Until Thu07/29/13 at 1119, Cath (Day of Procedure) 0800 (Restarted - Provider: Jessica Barr RN)1001 (New Bag - Provider: Juan Ren RN) sodium chloride 0.9% infusion () 150 mL/hr, Intravenous, CONTINUOUS, Starting on Thu07/29/13 at 1145, Until Thu07/29/13 at 1944 1125 (New Bag - Provider: Keeley Kyle RN)1342 ([facility] Hold - Provider: Admin Adt - Reason: Transfer to a Procedural area)1343 ([facility] Unhold - Provider: Admin Adt)1652 (Stopped - Provider: Jessica Barr RN) PRN Medication Order 07/28/2013 07/29/2013 07/30/2013 adenosine 90 mg in sodium chloride 0.9% 90 mL infusion (PATIENT FINANCIAL REPRESENTATIVE) (CANCELED) CONTINUOUS PRN, Starting on Thu07/29/13 at 0955, Until Thu07/29/13 at 1119, Cath (Intra-Procedure), Routine 0955 (New Bag - Provider: Elana Ren RN) aspirin chewable tablet (CANCELED) ONCE PRN, Starting on Thu07/29/13 at 1020, Until Thu07/29/13 at 1119, Cath (Intra-Procedure), Routine 1020 (Given - Provider: Juan Ren RN) clopidogrel (PLAVIX) tablet (CANCELED) ONCE PRN, Starting on Thu07/29/13 at 1013, Until Thu07/29/13 at 1119, Intra-Operative (Intra-Procedure), Routine 1013 (Given - Provider: Juan Ren RN) fentaNYL 50mcg/mL injection (CANCELED) ONCE PRN, Starting on Thu07/29/13 at 1002, Until Thu07/29/13 at 1119, Pain, Intra-Operative (Intra-Procedure), Routine 1002 (Given - Provider: Juan Ren RN) fentaNYL 50mcg/mL injection (CANCELED) ONCE PRN, Starting on Thu07/29/13 at 1011, Until Thu07/29/13 at 1119, Pain, Cath (Intra-Procedure), Routine 1011 (Given - Provider: Saman Damon MD) fentaNYL 50mcg/mL injection (CANCELED) ONCE PRN, Starting on Thu07/29/13 at 1050, Until Thu07/29/13 at 1119, Pain, Cath (Intra-Procedure), Routine 1050 (Given - Provider: Torey Asif RN) heparin (porcine) injection (CANCELED) ONCE PRN, Starting on Thu07/29/13 at 0954, Until Thu07/29/13 at 1119, Cath (Intra-Procedure), Routine 0954 (Given - Provider: Saman Damon MD)1004 (Given - Provider: Juan Ren RN)1023 (Given - Provider: Daniel Asif RN)1034 (Given - Provider: Daniel Asif RN) iohexol (OMNIPAQUE) 350 mg iodine/mL injection (CANCELED) ONCE PRN, Starting on Thu07/29/13 at 1100, Until Thu07/29/13 at 1119, Per Protocol, Cath (Intra-Procedure), Routine 1100 (Given - Provider: Torey Asif RN) midazolam (VERSED) injection (CANCELED) ONCE PRN, Starting on Thu07/29/13 at 1002, Until Thu07/29/13 at 1119, Sleep, Cath (Intra-Procedure), Routine 1002 (Given - Provider: Juan Ren, VERO)1049 (Given - Provider: Daniel Asif RN) nitroGLYcerin (NITROSTAT) SL tablet 0.4 mg 0.4 mg, Sublingual, DAILY PRN, Starting on 07/29/13 at 1118, Until 07/30/13 at 1308, Chest pain, May repeat every 5 minutes for a total of three doses., Routine 1342 ([facility] Hold - Provider: Admin Adt - Reason: Transfer to a Procedural area)1343 ([facility] Unhold - Provider: Admin Adt) nitroGLYCerin 100 mcg/mL intracoronary dilution (CANCELED) ONCE PRN, Starting on Thu07/29/13 at 1004, Until Thu07/29/13 at 1119, Cath (Intra-Procedure), Routine 1004 (Given - Provider: Saman Damon MD)1016 (Given - Provider: Edy Damon MD)1049 (Given - Provider: Edy Damon MD) documented in this encounter Care Teams Transportation Officer Relationship Specialty Start Date End Date Sarita Lim MD [address] [place] [address] PCP - General 07/16/10 documented as of this encounter
--- OUTSIDE RECORDS SUMMARY | 2024-04-30 13:43 | XMS_ITS | Encounter Summary ---
Author Organization [facility] Address [facility] [place] [address] Care Team Providers Care Student Services Counselor Name Role Phone Coni Lim MD Primary Care Provider [phone] Encounter Details Date Type Department Care Team (Latest Contact Info) Description 07/29/2013 11:02 AM EST - 07/29/2013 11:59 PM [facility] Hospital Encounter ZLEB 4A [facility] [place] [address] Edy Trimble MD [facility] [place] [address] Discharge Disposition: Home Social History Tobacco Use [...] Take 240 mg by mouth daily. 11/21/2016 omeprazole (PRILOSEC) 20 mg capsule Take 20 mg by mouth daily. 07/30/2013 magnesium oxide (MAG-OX) 400 mg tablet Take 400 mg by mouth 2 times daily. 11/21/2016 quinine 260 mg tablet Take 260 mg by mouth daily as needed. 11/21/2016 documented as of this encounter Plan of Treatment Not on file documented as of this encounter Procedures Procedure Name Priority Date/Time Associated Diagnosis Comments CK-MB STUDY Routine 07/29/2013 6:05 PM EST CK-MB STUDY Routine 07/29/2013 9:24 AM EST documented in this encounter Results * CK-MB Study (07/29/2013 6:05 PM EST) Pathologist [facility] Creatine Kinase 57 0 - 200 unit/L [facility] [employer] CK-MB 1.4 0.0 - 5.0 mcg/L [facility] [employer] CKMB Index 2.5 0.0 - 5.0 mcg/u [facility] MILLENNIUM Blood specimen (specimen) 07/29/2013 6:05 PM EST 07/29/2013 6:33 PM EST Narrative Resulting Agency Comment Spec In Lab Edy Damon MD CHEMISTRY ORDERABLES Performing Organization Address City/[facility] Co de Phone Number CERANNABEL JENSENENNIUM * CK-MB Study (07/29/2013 9:24 AM EST) Creatine Kinase 64 0 - 200 unit/L [facility]ILLEN[facility] CK-MB 1.3 0.0 - 5.0 mcg/L [facility]EN[facility] CKMB Index 2.0 0.0 - 5.0 mcg/u [facility] MILLENNIUM Blood specimen (specimen) 07/29/2013 9:24 AM EST 07/29/2013 11:10 AM EST Narrative Resulting Agency Comment Spec In Lab Edy Damon MD CHEMISTRY ORDERABLES Performing Organization Address City/[facility] Co de Phone Number CERANNABEL CLEMENSIUM documented in this encounter Visit Diagnoses Not on filedocumented in this encounter Care Teams Student Services Counselor Relationship Specialty Start Date End Date Coni Lim MD [address] [place] [address] PCP - General 07/16/10 documented as of this encounter
--- OUTSIDE RECORDS SUMMARY | 2024-04-30 13:43 | XMS_ITS | Encounter Summary ---
Author Organization [facility] Address [facility] [place] [address] Care Team Providers Care Fish And Game Club Manager Name Role Phone Coni Lim MD Primary Care Provider [phone] Encounter Details Date Type Department Care Team (Late st Contact Info) Description 02/14/2014 Telephone Cardiology [facility] [place] [phone] Eros Ballard MD [facility] [place] [address] Social History Tobacco Use Types Packs/Day Years [...] encounter Miscellaneous Notes * Telephone Encounter - Eros Ballard MD - 02/14/2014 7:17 PM EDT 48 y/o male with known ASCVD, previous stenting to his LAD(in 08/05), OM1 and RCA presents with crescendo pattern of angina in the last 2 weeks. Now has chest pain at rest, EKG non specific T wave changes. Troponin negative. 3 sl nitros helped pain. Now being started on nitro drip as his pain is recurrent. Vitals. Stable. Labs with in normal limits per outside MD. He is already on aspirin and plavix. To be started on heparin drip and transferred to [facility]. documented in this encounter Plan of Treatment Not on file documented as of this encounter Visit Diagnoses Not on filedocumented in this encounter Care Teams Fish And Game Club Manager Relationship Specialty Start Date End Date Coni Lim MD [address] [place] [address] PCP - General 07/16/10 documented as of this encounter
--- OUTSIDE RECORDS SUMMARY | 2024-04-30 13:43 | XMS_ITS | Encounter Summary ---
Author Organization [facility] Address [facility] [place] [address] Care Team Providers Care Conduit Reamer Operator Name Role Phone Coni Lim MD Primary Care Provider [phone] Encounter Details Date Type Department Care Team (Late st Contact Info) Description 06/04/2012 Orders Only Cardiology at [address] [phone] Antonio Rivas MD [facility] [place] [address] CAD (coronary artery disease) (Primary Dx) Social History Tobacco Use Types Packs/Day Years Used Date Smoking Tobacco: Every Day Cigarettes Comments:declines smoking ce sation info. Starting Chantix next week. Alcohol Use Standard Drinks/Week Comments Yes 0 (1 standard drink = 0.6 oz pur e alcohol) occasional Sex and Gender Information Value Date Recorded Sex Assigned at Not on file Gender Identity Not on file Sexual Orientation Not on file documented as of this encounter Plan of Treatment Not on file documented as of this encounter Visit Diagnoses Diagnosis CAD (coronary artery disease)- Primary Coronary atherosclerosis of unspecified type of vessel, comanche or graft documented in this encounter Care Teams Conduit Reamer Operator Relationship Specialty Start Date End Date Coni Lim MD [address] [place], [place] [address] PCP - General 07/16/10 documented as of this encounter
--- OUTSIDE RECORDS SUMMARY | 2024-04-30 13:43 | XMS_ITS | Encounter Summary ---
Author Organization [facility] [place] [address] Care Team Providers Care Upholstery Tech Name Role Phone Coni Lim MD Primary Care Provider [phone] Encounter Details Date Type Department Care Team (Late st Contact Info) Description 06/04/2012 Telephone [place] [address] Chester Pitts, RN Social History Tobacco Use Types Packs/Day Years [...] on filedocumented in this encounter Care Teams Upholstery Tech Relationship Specialty Start Date End Date Coni Lim MD [address] [place] [address] PCP - General 07/16/10 documented as of this encounter
--- OUTSIDE RECORDS SUMMARY | 2024-04-30 13:43 | XMS_ITS | Encounter Summary ---
[place] [address] Care Team Providers Care Environmental Advisor Name Role Phone Coni Lim MD Primary Care Provider [phone] Reason for Visit * Reason Onset Date Comments Other 07/26/2013 PRE CATH WORK UP DIABETIC METFORMIN Encounter Details Date Type Department Care Team (Late st Contact Info) Description 07/26/2013 Telephone Cardiology at [address] [phone] Lana Damon Other (PRE CATH WORK UP DIABETIC METFORMIN) Social History Tobacco Use Types Packs/Day Years [...] encounter Miscellaneous Notes * Telephone Encounter - Lana Damon - 07/26/2013 9:24 AM EST Name: Romeo Coe Referring Doctor: PARVEEN Procedure Date: Thursday 8AM Diagnosis:CAD,CP Diabetic Y/N, meds: Y METFORMIN Coumadin present Y/N:N IV Dye or Contrast Allergy Y/N:N Hx: En route Order status: not done Patient will be expecting phone teaching call LANA DAMON 07/26/2013 documented in this encounter Plan of Treatment Not on file documented as of this encounter Visit Diagnoses Not on filedocumented in this encounter Care Teams Environmental Advisor Relationship Specialty Start Date End Date Coni Lim MD [address] [place] [address] PCP - General 07/16/10 documented as of this encounter
--- OUTSIDE RECORDS SUMMARY | 2024-04-30 13:43 | XMS_ITS | Encounter Summary ---
Author Organization [facility] [address] Care Team Providers Care Base Engineer Name Role Phone Coni Lim MD Primary Care Provider [phone] Encounter Details Date Type Department Care Team (Late st Contact Info) Description 07/26/2013 Telephone Cardiology at [address] [phone] Shanell Julian CMA Social History Tobacco Use Types Packs/Day Years [...] encounter Miscellaneous Notes * Telephone Encounter - Shanell Julian CMA - 07/26/2013 10:14 AM EST Pre Cardiac Cath/PTCA Nursing Note Date of Cath:__07/29/2013 Indication:_CAD chest pain Date of Labs:(within 30 days)_06/15/2013 Date of EKG:__06/15/2013 Medications: Stop Metformin 48 hour prior ( X ) Last dose_07/26/2013 Insulin orders given Stop Coumadin days prior ( )Last dose__NA Does patient have a contrast or shellfish allergy? __N____ If yes, was Prednisone RX given? Back Pain management: Understands potential for back pain.(y ) Identifies pain management strategies. (y ) Teach 0-10 pain intensity scale. ( y ) Education: Patient understands purpose of cardiac cath/PTCA. (y ) Patient understands pre and post procedure care. (y ) Patient receives SDP pre-procedure instruction card. ( n ) Comments:phone teaching. Spoke with . Pt. Has had 3-4 caths in the past and has 2 stents. He has full understanding of procedure. documented in this encounter Plan of Treatment Not on file documented as of this encounter Visit Diagnoses Not on filedocumented in this encounter Care Teams Base Engineer Relationship Specialty Start Date End Date Coni Lim MD [address] [place] [address] PCP - General 07/16/10 documented as of this encounter
--- OUTSIDE RECORDS SUMMARY | 2024-04-30 13:43 | XMS_ITS | Encounter Summary ---
Author Organization [facility] [place] [address] Care Team Providers Care Machine Sneller Name Role Phone Coni Lim MD Primary Care Provider [phone] Encounter Details Date Type Department Care Team (Late st Contact Info) Description 11/17/2013 Abstract Cardiology at [address] [phone] Anastasiya Paulino, RN Social History Tobacco Use Types Packs/Day [...] on filedocumented in this encounter Care Teams Machine Sneller Relationship Specialty Start Date End Date Coni Lim MD [address] [place] [address] PCP - General 07/16/10 documented as of this encounter
--- OUTSIDE RECORDS SUMMARY | 2024-04-30 13:43 | XMS_ITS | Encounter Summary ---
Author Organization [facility] Address [facility] [place] [address] Care Team Providers Care Service Engine Repairer Name Role Phone Coni Lim MD Primary Care Provider Encounter Details Date Type Department Care Team (Late st Contact Info) Description 07/26/2013 Orders Only Cardiology at [address] [phone] Taylor Dickinson, PA [facility] [place] [address] ASCVD (arteriosclerotic cardiovascular disease) (Primary Dx) Social History Tobacco Use [...] on file documented as of this encounter Procedure Notes * Provider, Scanning - 07/29/2013 11:39 AM ESTAssociated Order(s): CARDIAC CATHETERIZATION documented in this encounter Plan of Treatment Not on file documented as of this encounter Procedures Procedure Name Priority Date/Time Associated Diagnosis Comments CARDIAC CATHETERIZATION Routine 07/29/2013 11:02 AM EST ASCVD (arteriosclerotic cardiovascular disease) documented in this encounter Results * Cardiac Catheterization (07/29/2013 11:02 AM EST) Anatomical Region Laterality Modality Other Narrative 08/02/2013 10:16 AM EST Procedure Note Provider, Scanning - 07/29/2013 11:39 AM EST Juan Ball MD CARDIAC CATH ORDERAB LES documented in this encounter Visit Diagnoses Diagnosis ASCVD (arteriosclerotic cardiovascular disease)- Primary Unspecified cardiovascular disease ASCVD (arteriosclerotic cardiovascular disease) Unspecified cardiovascular disease documented in this encounter Care Teams Service Engine Repairer Relationship Specialty Start Date End Date Coni Lim MD [address] [place] [address] PCP - General 07/16/10 documented as of this encounter
--- OUTSIDE RECORDS SUMMARY | 2024-04-30 13:43 | XMS_ITS | Encounter Summary ---
Author Organization [facility] Address [facility] [place] [address] Care Team Providers Care Strategic Account Executive Name Role Phone Coni Lim MD Primary Care Provider [phone] Encounter Details Date Type Department Care Team (Late st Contact Info) Description 06/14/2012 Orders Only Cardiology at [address] [phone] Bryan Iverson MD [facility] CARDIOLOGY [place] [phone] Social History Tobacco Use Types Packs/Day Years [...] FILM LIBRARY STORAGE ONLY DX CHEST Routine 06/14/2012 1:24 PM EDT documented in this encounter Results * FILM LIBRARY- STORAGE ONLY DX CHEST (06/14/2012 1:24 PM EDT) 06/14/2012 1:24 PM EDT Narrative RAD - 03/13/2014 6:59 PM EDT This is a non-reportable exam. Procedure Note Shukri Mckee - 03/13/2014 This is a non-reportable exam. Bryan Iverson MD IM FILM LIBRARY ORD ERABLES RAD [address] [place] [address] documented in this encounter Visit Diagnoses Not on filedocumented in this encounter Care Teams Strategic Account Executive Relationship Specialty Start Date End Date Coni Lim MD [address] [place] [address] PCP - General 07/16/10 documented as of this encounter
--- OUTSIDE RECORDS SUMMARY | 2024-04-30 13:43 | XMS_ITS | Encounter Summary ---
Author Organization [facility] Address [facility] [place] [address] Care Team Providers Care Photograph Inspector Name Role Phone Coni Lim MD Primary Care Provider [phone] Encounter Details Date Type Department Care Team (Late st Contact Info) Description 06/14/2012 Orders [place] [address] Benjie Castellon MD [facility] [place] [address] Social History Tobacco Use Types Packs/Day Years [...] on filedocumented in this encounter Care Teams Photograph Inspector Relationship Specialty Start Date End Date Coni Lim MD [address] [place] [address] PCP - General 07/16/10 documented as of this encounter
--- OUTSIDE RECORDS SUMMARY | 2024-04-30 13:43 | XMS_ITS | Encounter Summary ---
Author Organization [facility] [place] [address] Care Team Providers Care Cost Consultant Name Role Phone Coni Lim MD Primary Care Provider Encounter Details Date Type Department Care Team (Late st Contact Info) Description 07/27/2014 Orders Only Cardiology at [address] [phone] Oneil Newsome RN Research exam (Primary Dx) Social History Tobacco Use Types [...] of this encounter Plan of Treatment Scheduled Orders Name Type Priority Associated Diagnoses Orde r Schedule EKG 12 Lead ECG Routine Research exam Ordered: 07/27/2014 documented as of this encounter Visit Diagnoses Diagnosis Research exam- Primary Examination of participant in clinical trial documented in this encounter Care Teams Cost Consultant Relationship Specialty Start Date End Date Coni Lim MD [address] [place] [address] PCP - General 07/16/10 documented as of this encounter
--- OUTSIDE RECORDS SUMMARY | 2024-04-30 13:43 | XMS_ITS | Encounter Summary ---
Author Organization [facility] Address [facility] [place] [address] Care Team Providers Care Liquor Commissioner Name Role Phone Coni Lim MD Primary Care Provider [phone] Encounter Details Date Type Department Care Team (Latest Contact Info) Description 07/30/2013 5:12 AM EST - 07/30/2013 11:59 PM [facility] Hospital Encounter ZLEB 4A [facility] [place] [address] Edy Trimble MD [facility] [place] [address] Discharge Disposition: Home Social History Tobacco Use [...] Date/Time Associated Diagnosis Comments CK-MB STUDY Routine 07/30/2013 6:00 AM EST documented in this encounter Results * CK-MB Study (07/30/2013 6:00 AM EST) Creatine Kinase 54 0 - 200 unit/L CERNER BzzAgentENNIUM CK-MB 1.8 0.0 - 5.0 mcg/L CERNER MILLENNIUM CKMB Index 3.3 0.0 - 5.0 mcg/u CERNER [facility] Blood specimen (specimen) 07/30/2013 6:00 AM EST 07/30/2013 6:32 AM EST Narrative Resulting Agency Comment Spec In Lab Edy Damon MD CHEMISTRY ORDERABLES Performing Organization Address City/State/[facility] Co sd Phone Number [facility] documented in this encounter Visit Diagnoses Not on filedocumented in this encounter Care Teams Liquor Commissioner Relationship Specialty Start Date End Date Coni Lim MD [address] [place] [address] PCP - General 07/16/10 documented as of this encounter
--- OUTSIDE RECORDS SUMMARY | 2024-04-30 13:43 | XMS_ITS | Encounter Summary ---
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 History chest pain, + smoker, recent coronary stents Comparison Is made with the study of 06/14 [id number] hours. Technique Findings Cardiomediastinal silhouette is normal. ??Lung collins show in increase in markings centrally but no airspace infiltrate. ??No significant change from prior. ??The coronary stents are not defined. Impression Increased markings consistent with a smoking history but no other active disease process Procedure Note Keo Fish MD - 06/15/2012 Examination CHEST ROUTINE 2 VIEWS Clinical History chest pain, + smoker, recent coronary stents Comparison Is made with the study of 06/14 [id number] hours. Technique Findings Cardiomediastinal silhouette is normal. Lung collins show in increase in markings centrally but no airspace infiltrate. No significant change from prior. The coronary stents are not defined. Impression Increased markings consistent with a smoking history but no other active disease process Bryan Iverson MD IMG DX ORDERABLES * (ABNORMAL) POCT GLUCOSE (06/14/2012 8:11 PM EDT) Glucose, POC 207(H) 60 - 199 mg/dL [facility] Comment: Supplemental ranges: <110 mg/dL before meals <200 mg/dL all other times of the day Blood specimen (specimen) 06/14/2012 8:11 PM EDT 06/14/2012 8:11 PM EDT Bryan Iverson MD POINT OF CARE TEST O EVITA Performing Organization Address [facility] Co de Phone Number [facility] [employer] * POCT GLUCOSE (06/14/2012 4:57 PM EDT) Glucose, POC 119 60 - 199 mg/dL [facility] Comment: Supplemental ranges: <110 mg/dL before meals <200 mg/dL all other times of the day Blood specimen (specimen) 06/14/2012 4:57 PM EDT 06/14/2012 4:57 PM EDT Bryan Iverson MD POINT OF CARE TEST O EVITA [facility] [employer] * Echo Transthoracic (Complete) (06/14/2012 4:00 PM EDT) EF 65 HEART[facility] SYSTEM Anatomical Region Laterality Modality Other 06/14/2012 Narrative 06/14/2012 4:26 PM EDT Amended Report Procedure: ? Transthoracic Echocardiogram Patient: ? LAQUITA Pop ?(Age): 1965(47) Med Rec#: ?[id number] ? Sex: ?M ? [place] [place] Ht / Wt: ??176(cm)/114(kg) Pt. Loc: ? Adult Floor ?BSA: ?2.36 Study Date: ?06/14/2012 ? Pt. Type: Inpatient Tape: ? Referring: Bryan Iverson ([id number]) Referring: STEPHANIE WILLIAM I Correctional Captain: Juan Haley [facility] Diagnosis: ??Chest pain (786.50) CPT Code(s): ??Echo LTD (43428), ??Definity (31613NA), Indication(s): ??Chest Pain Rhythm: SUMMARY: 1. Technically difficult study.Definity contrast (one 1.5 [...] Ejection fraction is estimated to be 65%. FINDINGS: Left Ventricle ?The left ventricular chamber size is normal. ?Left ventricular wall thickness is normal. ?There is normal global left ventricular systolic function. ??Ejection fraction is estimated to be 65%. ?There are no left ventricular segmental wall motion abnormalities. Right Ventricle ?The right ventricle is normal in size. Misc ?Technically difficult study. ?Definity contrast (one 1.5 ml vial)was used to enhance endocardial definition. Excess contrast was discarded. Wall Motion: Segment Name ?Rest ? Base-Anteroseptal ?? Normal ? Base-Anterior ? Normal ? Base-Anterolateral ??Normal ? Base-Posterolateral Normal ? Base-Inferior ? Normal ? Base-Inferoseptal ?? Normal ? Mid-Anteroseptal ?Normal ? Mid-Anterior ?Normal ? Mid-Anterolateral ?? Normal ? Mid-Posterolateral ??Normal ? Mid-Inferior ?Normal ? Mid-Inferoseptal ?Normal ? [place]-Septal ? Normal ? [place]-Anterior ? Normal ? [place]-Lateral ?Normal ? [place]-Inferior ? Normal ? [place]-Tip ?Normal ? Chambers ?Value ?Units (Range) ? LV EF Est ? 65 ? % (55 to 80) ? IVSd 2D ? 0.9 ?cm ? LVIDd 2D ?4.6 ?cm ? PWd 2D ?1 ?cm ? LVIDs 2D ?3.1 ?cm ? LVFS 2D ? 32 ? % ? This report has been electronically signed by: Cali Shannon MD ? 06/14/2012 16:26:31 Images reviewed and interpretation verified [facility] Cardiac Ultrasound Laboratory Procedure Note Cali Shannon MD - 06/14/2012 Amended Report Procedure: Transthoracic Echocardiogram Patient: LAQUITA Pop DOB(Age): 1965(47) Med Rec#: [id number] Sex: M [place] [facility] [place]t / Wt: 176(cm)/114(kg) Pt. Loc: Adult Floor BSA: 2.36 Study Date: 06/14/2012 Pt. Type: Inpatient Tape: Referring: Bryan IversonNatalie ([id number]) Referring: STEPHANIE WILLIAM I Correctional Captain: Juan Haley [facility] Diagnosis: Chest pain (786.50) CPT Code(s): Echo LTD (83102), Definity (32817FZ), Indication(s): Chest Pain Rhythm: SUMMARY: 1. Technically difficult study.Definity contrast (one 1.5 [...] Ejection fraction is estimated to be 65%. FINDINGS: Left Ventricle The left ventricular chamber size is normal. Left ventricular wall thickness is normal. There is normal global left ventricular systolic function. Ejection fraction is estimated to be 65%. There are no left ventricular segmental wall motion abnormalities. Right Ventricle The right ventricle is normal in size. Misc Technically difficult study. Definity contrast (one 1.5 ml vial)was used to enhance endocardial definition. Excess contrast was discarded. Wall Motion: Segment Name Rest Base-Anteroseptal Normal Base-Anterior Normal Base-Anterolateral Normal Base-Posterolateral Normal Base-Inferior Normal Base-Inferoseptal Normal Mid-Anteroseptal Normal Mid-Anterior Normal Mid-Anterolateral Normal Mid-Posterolateral Normal Mid-Inferior Normal Mid-Inferoseptal Normal [place]-Septal Normal [place]-Anterior Normal [place]-Lateral Normal [place]-Inferior Normal [place]-Tip Normal Chambers Value Units (Range) LV EF Est 65 % (55 to 80) IVSd 2D 0.9 cm LVIDd 2D 4.6 cm PWd 2D 1 cm LVIDs 2D 3.1 cm LVFS 2D 32 % This report has been electronically signed by: Cali Shannon MD 06/14/2012 16:26:31 Images reviewed and interpretation verified [facility] Cardiac Ultrasound Laboratory Bryan Iverson MD ECHO ORDERABLES * (ABNORMAL) DIFFERENTIAL, AUTOMATED (06/14/2012 2:38 PM EDT) Neutrophil % 51.0 34.0 - 71.0 % CERNER MILLENNIUM Neutrophil Absolute 4.88 1.50 - 6.30 x10(3)/mc L [facility]ER MILLEN[facility]UM Lymph % 35.3 19.0 - 53.0 % CERNER MILLENNIUM Lymphocytes Abs 3.4 1.0 - 3.6 x10(3)/mc L CERNER MILLENNIUM Monocyte % 8.8 4.0 - 13.0 % CERNER MILLENNIUM Monocyte Abs 0.8 0.2 - 1.0 x10(3)/mc L CERNER MILLENNIUM Eos % 3.8 0.0 - 7.0 % CERNER MILLENNIUM Eosinophils Abs 0.4 0.0 - 0.5 x10(3)/mc L CERNER MILLENNIUM Basophil % 0.5 0.0 - 2.0 % CERNER MILLENNIUM Baso Absolute 0.0 0.0 - 0.2 x10(3)/mc L CERNER MILLENNIUM Immature Gran % 0.60 0.00 - 0.66 % [facility]ERNER MILLENNIUM Comment: Immature granulocytes(IG's)percentage and absolute count will include metamyelocytes, myelocytes, and promyelocytes. Blood smears from CBCs yielding IG's will be scanned manually for concordance. If this scan disagrees with the automated IG or if promyelocytes are noted, a manual differential will be performed. Immature Gran Absolute 0.06(H) 0.00 - 0.05 x10(3)/mc L CERNER MILLENNIUM Blood specimen (specimen) 06/14/2012 2:38 PM EDT 06/14/2012 3:04 PM EDT Bryan Iverson MD HEMATOLOGY ORDERABLE S CERNER MIKEYENNIUM * Cardiac Enzymes (06/14/2012 2:38 PM EDT) Pathologist [facility] Troponin-T <0.03 <=0.03 ng/mL [facility]EMORY Comment: 0.03 ng/mL: Represents the 99th percentile upper reference limit for normals. >0.03 ng/mL: Elevated cardiac troponin T level indicative of myocardial damage. Diagnosis of acute, evolving or recent OR requires a typical rise and gradual fall [...] of suspicion is high. Reference: [Myocardial infarction redefined a consensus document of the Joint Society of Cardiology/[place] College of Cardiology Committee for the redefinition of myocardial infarction. Journal of the [place] College [employer]iology 2000; 36: 959-969] Creatine Kinase 48 0 - 200 unit/L [employer] Blood specimen (specimen) 06/14/2012 2:38 PM EDT 06/14/2012 3:04 PM EDT Narrative Resulting Agency Comment Spec In Lab Bryan Iverson MD CHEMISTRY ORDERABLES Performing Organization Address [facility] Phone Number TANG [place] * APTT (06/14/2012 2:38 PM EDT) Pathologist [facility] Partial Thromboplastin Time 26 25 - 35 sec [facility] Comment: Recommended therapeutic PTT range for full dose unfractionated heparin is 80-114 seconds. Blood specimen (specimen) 06/14/2012 2:38 PM EDT 06/14/2012 3:04 PM EDT Narrative Resulting Agency Comment Spec In Lab Bryan Iverson MD HEMATOLOGY ORDERABLE S Performing Organization Address [facility] Co de Phone Number TANG [facility] * Prothrombin Time (06/14/2012 2:38 PM EDT) Prothrombin Time 13.3 11.9 - 14.7 sec CERNER MILLENNIUM Comment: [facility] Transfusion Committee Guidelines: INR less than 2.0, PTT less than OR equal to 43.5 seconds, or Fibrinogen greater than or equal to 100 mg/dl indicate adequate procoagulant activity for hemostasis in patients without underlying bleeding disorders. International Normalization Ratio 1.0 0.9 - 1.1 CERNER MILLENNIUM Blood specimen (specimen) 06/14/2012 2:38 PM EDT 06/14/2012 3:04 PM EDT Narrative Resulting Agency Comment Spec In Lab Bryan Iverson MD HEMATOLOGY ORDERABLE S CERANNABEL JENSENENNIUM * CBC (with Diff) (06/14/2012 2:38 PM EDT) White Blood Cell 9.6 4.0 - 10.0 x10(3)/mcL CERNER MILLENNIUM Red Blood Cell 5.01 4.63 - 6.08 x10(6)/mcL CERNER MILLENNIUM Hemoglobin 15.1 13.7 - 17.5 gm/dL CERNER MILLENNIUM Hematocrit 43.6 40.0 - 51.0 % CERNER MILLENNIUM Mean Cell Volume 87.0 79.0 - 92.0 fL CERNER MILLENNIUM Mean Cell Hemoglobin 30.1 25.6 - 32.2 pg CERNER MILLENNIUM Mean Cell Hemoglobin Concentration 34.6 32.0 - 36.5 gm/dL CERNER MILLENNIUM Platelet 249 145 - 370 x10(3)/mcL CERNER MILLENNIUM RDW Standard Deviation 39.8 35.0 - 46.0 fL CERNER MILLENNIUM RDW coefficient of variation 12.5 10.9 - 14.4 % CERNER MILLENNIUM Mean Platelet Volume 10.7 9.0 - 12.0 fL CERNER MILLENNIUM Blood specimen (specimen) 06/14/2012 2:38 PM EDT 06/14/2012 3:04 PM EDT Narrative Resulting Agency Comment Spec In Lab Bryan Iverson MD HEMATOLOGY ORDERABLE S TANG JENSENENNIUM * (ABNORMAL) BMP w/fasting Glucose (06/14/2012 2:38 PM EDT) [facility] Signature Glucose Fasting 117(H) 65 - 99 mg/dL CERNER MILLENNIUM Comment: ?Fasting* Glucose Interpretive Criteria Normal ?65-99 [...] of Diabetes Mellitus, Position Statement from the [place] Diabetes Association. ??Diabetes Care, Volume 33, Supplement 1, Aug 2009 Blood Urea Nitrogen 13 10 - 20 mg/dL CERNER MILLENNIUM Creatinine 0.72(L) 0.80 - 1.50 mg/dL CERNER MILLENNIUM Comment: Please note that the pediatric reference intervals supplied above were not validated at [facility]. Results from pediatric patients should be interpreted in conjunction to the patient's age, height and muscle mass. Sodium 141 135 - 145 mmol/L CERNER MILLENNIUM Potassium 3.6 3.5 - 5.0 mmol/L CERNER MILLENNIUM Comment: [...] - 31 mmol/L CERNER MILLENNIUM Anion Gap 14 5 - 15 mmol/L CERNER MILLENNIUM Calcium 9.7 8.5 - 10.5 mg/dL CERNER MILLENNIUM Est Glomerular Filtration Rate >60 >=60 CERNER MILLENNIUM Comment: The National Kidney Disease Education Program (NKDEP) has recommended all laboratories report estimated GFR (eGFR) along with plasma creatinine measurements to assist you with recognition of early kidney disease. Caveats: ??Plasma creatinine should be at steady-state (unchanged within the past week). For patients multiply eGFR by 1.2. The MDRD equation was developed using patients between the ages of 18 and 70 years. ?? The MDRD equation has not been validated for patients < 18 years of age and should not be used to assess renal function in the pediatric population. ??The MDRD eGFR equation will also overestimate the true GFR of patients above the age of 70. ??This overestimation is variable but increases with age. At present, NKDEP does NOT recommend using the MDRD equation for drug dosing purposes and pharmacists should continue to use their current dosing methods. In addition, numerical eGFR values greater than 60 ml/min/1.73 square meters should be treated as > 60, and not an exact number due to greater inaccuracies at these higher values. Per NKDEP, they classify normal renal function as any GFR >60ml/min/1.73 square meters; chronic kidney disease when GFR <60, and renal failure when GFR <15. ??This calculation may not be valid for patients with atypical muscle mass (very lean or obese), acute renal failure, and in patients with diabetic kidney disease. References: http://nkdep.nih.gov/resources/NKDEP_Suggestn4Labs_0606_508.pdf http://www.kidney.org/professionals/kls/pdf/faq_gfr.pdf Joanna K, Marvin NA, Keisha AK, Edward TS, Gisselle AD, Damian JOHANNA. Relative performance of the MDRD and CKD-EPI equations for estimating glomerular filtration rate among patients with varied clinical presentations. Clin J Am Soc Nephrol;6:1963-72. Blood specimen (specimen) 06/14/2012 2:38 PM EDT 06/14/2012 3:04 PM EDT Narrative Resulting Agency Comment Spec In Lab Bryan Iverson MD CHEMISTRY ORDERABLES [facility] * EKG 12 Lead (06/14/2012 2:27 PM EDT) Ventricular rate 91 BPM MUSE SYSTEM Atrial Rate 91 BPM MUSE SYSTEM P-R Interval 134 ms MUSE SYSTEM QRS Duration 84 ms MUSE SYSTEM Q-T Interval 348 ms MUSE SYSTEM QTC Calculated (Bezet) 428 ms MUSE SYSTEM Calculated P [place] 6 degrees MUSE SYSTEM Calculated R [place] 29 degrees MUSE SYSTEM Calculated T [place] 25 degrees MUSE SYSTEM INTERPRETATION Normal sinus rhythm Normal ECG When compared with ECG of 04-JUN-2012 06:07, No significant change was found Confirmed by MD Walton Douglas ([id number]) on 06/14/2012 9:43:26 PM MUSE SYSTEM 06/14/2012 2:27 PM EDT 06/14/2012 9:43 PM EDT Bryan Iverson MD ECG ORDERABLES MUSE SYSTEM documented in this encounter Visit Diagnoses Diagnosis Chest pain- Primary Chest pain, unspecified GERD (gastroesophageal reflux disease) Esophageal reflux HTN (hypertension) Unspecified essential hypertension DM (diabetes mellitus) Type II or unspecified type diabetes mellitus without mention of complication, not stated as uncontrolled CAD (coronary artery disease), non-obstructive Coronary atherosclerosis of unspecified type of vessel, [place] or graft Smoker Tobacco use disorder Dyslipidemia Other and unspecified hyperlipidemia documented in this encounter Administered Medications Inactive Administered Medications - up to 3 most recent administrations Medication Order MAR Action Action Date Dose Rate Site acetaminophen (TYLENOL) tablet 650 mg 650 mg, Oral, 2 TIMES DAILY, First dose on Thu06/14/12 at 2100, Until Discontinued, Maximum dose of acetaminophen is 4000 mg from all sources in 24 hours., Routine Given 06/15/2012 9:28 AM EDT 650 mg Given 06/14/2012 9:14 PM EDT 650 mg aspirin EC tablet 81 mg 81 mg, Oral, DAILY, First dose on Thu06/15/12 at 0900, Until Discontinued, Routine Given 06/15/2012 9:2 8 AM EDT 81 mg clopidogrel (PLAVIX) tablet 300 mg 300 mg, Oral, ONCE, 1 dose, On Thu06/14/12 at 2100, Routine Given 06/14/2012 9:14 PM EDT 300 mg clopidogrel (PLAVIX) tablet 75 mg 75 mg, Oral, DAILY, First dose on Thu06/15/12 at 0900, Until Discontinued, Routine Given 06/15/2012 9:2 8 AM EDT 75 mg DILTiazem (DILACOR XR) XR capsule 240 mg 240 mg, Oral, DAILY, First dose on Thu06/15/12 at 0900, Until Discontinued, Routine Given 06/15/2012 9:2 8 AM EDT 240 mg DULoxetine (CYMBALTA) capsule 60 mg 60 mg, Oral, 2 TIMES DAILY, First dose on Thu06/14/12 at 2100, Until Discontinued, Routine Given 06/15/2012 9:2 8 AM EDT 60 mg Given 06/14/2012 9:14 PM EDT 60 mg famotidine (PEPCID) tablet 20 mg 20 mg, Oral, 2 TIMES DAILY, First dose on Thu06/14/12 at 2100, Until Discontinued, Routine Given 06/15/2012 9:2 8 AM EDT 20 mg Given 06/14/2012 9:14 PM EDT 20 mg flu vaccine 2011 (36 mos+)(PF) (FLUZONE) 45 mcg (15 mcg x 3)/0.5 mL IM injection 0.5 mL 0.5 mL, Intramuscular, PRIOR TO DISCHARGE, 1 dose, Starting on Thu06/14/12 at 1414, Until Thu06/15/12 at 1743, Per Protocol, Hold for fever greater than 38.9C, Routine Given 06/15/2012 5:43 PM EDT 0.5 mLs Left Arm heparin (porcine) injection 2,000-4,000 Units 2,000-4,000 Units, Intravenous, BOLUS PER HEPARIN PROTOCOL, Starting on Thu06/14/12 at 1457, Until Thu06/15/12 at 1239, Per Protocol, Adjust to dosing chart, Patient Weight 110-114 kg PTT less than 60 seconds - 4,000 units PTT 60-79 seconds - 2,000 units PTT 80-114 seconds - no bolus , Routine Given 06/14/2012 10:03 PM EDT 4,000 Units heparin 25,000 units in dextrose 5% 500 mL infusion 350-7,000 Units/hr (rounded to 7-140 mL/hr), Intravenous, CONTINUOUS, Starting on Thu06/14/12 at 1530, Until Thu06/15/12 at 0821, Patient Weight 110-114 kg Initial dose - 1,000 units/hr = 20 mL/hr PTT less than 60 sec - increase by 450 units/hr = 9 mL/hr PTT 60-79 sec- increase by 200 units/hr = 4 mL/hr PTT 80-114 sec - no change PTT 115-129 sec - decrease by 100 units/hr = 2 mL/hr PTT 130-145 sec - stop infusion for 30 min then decrease by 200 units/hr = 4 mL/hr PTT greater than 145 sec - stop infusion for 60 min then decrease by 350 units/hr = 7 mL/hr PTT greater than 145 sec X 2 - call housekeeper child care See Bolus dosing guidance for aPTT values less than 80 seconds under PRN medications, Routine Rate/Dose Change 06/15/2012 3:15 AM EDT 1,650 Units/hr 33 mL/hr Rate/Dose Verify 06/15/2012 12:38 AM EDT 1,450 Units/hr 29 mL/hr Rate/Dose Change 06/14/2012 10:03 PM EDT 1,450 Units/hr 29 mL/hr insulin aspart (NOVOLOG) PEN injection 1-4 Units 1-4 Units, Subcutaneous, 4 TIMES DAILY BEFORE MEALS & NIGHTLY, First dose on Thu06/14/12 at 1630, Until Discontinued, CORRECTION BOLUS Sensitive to insulin lean patient or total daily dose of all insulin needed to achieve glycemic control less than 30 units BG 140 - 160 Give 1 unit BG 161 - 200 Give 2 units BG 201 - 240 Give 3 units BG greater than 240, give 4 units every 2 hours until BG less than 240 (no more than three times) & call for new basal insulin orders , Routine Given 06/15/2012 12:20 PM EDT 2 Units Given 06/15/2012 8:30 AM EDT 2 Units Given 06/14/2012 9:08 PM EDT 3 Units isosorbide mononitrate (IMDUR) CR tablet 30 mg 30 mg, Oral, ONCE, 1 dose, On Thu06/14/12 at 1645, Routine Given 06/14/2012 5:52 PM EDT 30 mg isosorbide mononitrate (IMDUR) CR tablet 60 mg 60 mg, Oral, EVERY MORNING, First dose (after last modification) on Thu06/15/12 at 0600, Until Discontinued, Routine Given 06/15/2012 5:12 AM EDT 60 mg isosorbide mononitrate (IMDUR) CR tablet 60 mg 60 mg, Oral, ONCE, 1 dose, On Thu06/15/12 at 1400, Routine Given 06/15/2012 2:00 PM EDT 60 mg magnesium oxide (MAG-OX) tablet 400 mg 400 mg, Oral, 2 TIMES DAILY, First dose on Thu06/14/12 at 2100, Until Discontinued, Routine Given 06/15/2012 9:28 AM EDT 400 mg Given 06/14/2012 9:14 PM EDT 400 mg metoprolol tartrate (LOPRESSOR) tablet 25 mg 25 mg, Oral, EVERY 6 HOURS SCHEDULED, First dose on Thu06/14/12 at 1800, Until Discontinued, Hold for SBP under 90 or HR under 50, Routine Given 06/15/2012 5:38 PM EDT 25 mg Given 06/15/2012 12:00 PM EDT 25 mg Given 06/15/2012 5:12 AM EDT 25 mg morphine 2 mg/mL carpuject 2 mg 2 mg, Intravenous, ONCE, 1 dose, On Thu06/14/12 at 1645, Routine Given 06/14/2012 4:41 PM EDT 2 mg morphine 2 mg/mL carpuject 1 dose, Starting on Thu06/14/12 at 1631, Until Thu06/14/12 at 1641, BROOKE RODRIGUEZ: Cabinet Override nitroGLYcerin (NITROSTAT) SL tablet 0.4 mg 0.4 mg, Sublingual, EVERY 5 MIN PRN, Starting on Thu06/14/12 at 1457, Until Thu06/15/12 at 2004, Chest pain, May repeat every 5 minutes for a total of three doses. Notify provider if chest pain not relieved with nitroglycerin. Do not administer nitroglycerin if the patinet has received or taken phosphodiesterase (PDE-5) inhibitors such as sildenafil, tadalafil or vardenafil within the last 24 to 72 hours., Routine Given 06/15/2012 12:52 PM EDT 0. 4 mg Given 06/15/2012 12:47 PM EDT 0.4 mg Given 06/15/2012 12:39 PM EDT 0.4 mg perflutren lipid microspheres (DEFINITY) injection 0.9 mL 0.9 mL, Intravenous, IMG ONCE PRN, 1 dose, Starting on Thu06/14/12 at 1601, Until Thu06/14/12 at 1545, Other, for enhancement of sub-optimal echo images, Echo Lab (Intra-Procedure), Routine Given 06/14/2012 3:45 PM EDT 0.9 mLs potassium chloride (K-DUR/KLOR-CON) extended release tablet 40 mEq 40 mEq, Oral, ONCE, 1 dose, On Thu06/14/12 at 2130, 20 mEq tablet may be dissolved in water for administration, Routine Given 06/14/2012 10:03 PM EDT 40 mEq rosuvastatin (CRESTOR) tablet 10 mg 10 mg, Oral, EVERY EVENING, First dose on Thu06/14/12 at 1700, Until Discontinued, Routine Given 06/15/2012 5:38 PM EDT 10 mg Given 06/14/2012 5:52 PM EDT 10 mg sodium chloride 0.9% infusion 150 mL/hr, Intravenous, CONTINUOUS, Starting on Thu06/14/12 at 1530, Until Thu06/15/12 at 0821 New Bag 06/15/2012 5:08 AM EDT 150 mL/hr 150 mL/hr Rate/Dose Verify 06/15/2012 12:38 AM EDT 150 mL/hr 150 mL /hr New Bag 06/14/2012 10:20 PM EDT 150 mL/hr 150 mL/hr documented in this encounter Active and Recently Administered Medications Times are shown in EDT. Scheduled Medication Order 06/13/2012 06/14/2012 06/15/2012 acetaminophen (TYLENOL) tablet 650 mg (CANCELED) 650 mg, Oral, 2 TIMES DAILY, First dose on Thu06/14/12 at 2100, Until Discontinued, Maximum dose of acetaminophen is 4000 mg from all sources in 24 hours., Routine 2113 (Given - Provider: Brooke Rodriguez RN) 927 (Given - Provider: Reid Batista RN) aspirin EC tablet 81 mg (CANCELED) 81 mg, Oral, DAILY, First dose on Thu06/15/12 at 0900, Until Discontinued, Routine 927 (Given - Provid er: Reid Batista RN) clopidogrel (PLAVIX) tablet 300 mg (COMPLETED)(Linked Group 1) 300 mg, Oral, ONCE, 1 dose, On Thu06/14/12 at 2100, Routine 2113 (Given - Provider: Brooke Rodriguez RN) clopidogrel (PLAVIX) tablet 75 mg(Linked Group 1) 75 mg, Oral, DAILY, First dose on Thu06/15/12 at 0900, Until Discontinued, Routine 927 (Given - Provid er: Reid Batista RN) DILTiazem (DILACOR XR) XR capsule 240 mg (CANCELED) 240 mg, Oral, DAILY, First dose on Thu06/15/12 at 0900, Until Discontinued, Routine 927 (Given - Provid er: Reid Batista RN) DULoxetine (CYMBALTA) capsule 60 mg (CANCELED) 60 mg, Oral, 2 TIMES DAILY, First dose on Thu06/14/12 at 2100, Until Discontinued, Routine 2113 (Given - Provider: Brooke Rodriguez RN) 927 (Given - Provider: Reid Batista RN) famotidine (PEPCID) tablet 20 mg (CANCELED) 20 mg, Oral, 2 TIMES DAILY, First dose on Thu06/14/12 at 2100, Until Discontinued, Routine 2113 (Given - Provider: Brooke Rodriguez RN) 927 (Given - Provider: Reid Batista RN) insulin aspart (NOVOLOG) PEN injection 1-4 Units (CANCELED) 1-4 Units, Subcutaneous, 4 TIMES DAILY BEFORE MEALS & NIGHTLY, First dose on Thu06/14/12 at 1630, Until Discontinued, CORRECTION BOLUS Sensitive to insulin lean patient or total daily dose of all insulin needed to achieve glycemic control less than 30 units BG 140 - 160 Give 1 unit BG 161 - 200 Give 2 units BG 201 - 240 Give 3 units BG greater than 240, give 4 units every 2 hours until BG less than 240 (no more than three times) & call for new basal insulin orders , Routine 175 (Not Given - Provider: Brooke Rodriguez RN - Reason: Order parameters not met - Comment: FS [phone] (Given - Provider: Brooke Rodriguez RN - Comment: FS 207) 0830 (Given - Provider: Reid Batista RN)1220 (Given - Provider: Reid Batista RN)1738 (Not Given - Provider: Reid Batista RN - Reason: Order parameters not met) isosorbide mononitrate (IMDUR) CR tablet 30 mg (COMPLETED) 30 mg, Oral, ONCE, 1 dose, On Thu06/14/12 at 1645, Routine 175 (Given - Provider: Brooke Rodriguez RN) isosorbide mononitrate (IMDUR) CR tablet 60 mg (CANCELED) 60 mg, Oral, EVERY MORNING, First dose (after last modification) on Thu06/15/12 at 0600, Until Discontinued, Routine 05 (Given - Provid er: Karishma Malagon RN) isosorbide mononitrate (IMDUR) CR tablet 60 mg (COMPLETED) 60 mg, Oral, ONCE, 1 dose, On Thu06/15/12 at 1400, Routine 1400 (Given - Provid er: Rebecca Rivera RN) magnesium oxide (MAG-OX) tablet 400 mg (CANCELED) 400 mg, Oral, 2 TIMES DAILY, First dose on Thu06/14/12 at 2100, Until Discontinued, Routine 2113 (Given - Provider: Brooke Rodriguez RN) 0928 (Given - Provider: Reid Batista RN) metoprolol tartrate (LOPRESSOR) tablet 25 mg (CANCELED) 25 mg, Oral, EVERY 6 HOURS SCHEDULED, First dose on Thu06/14/12 at 1800, Until Discontinued, Hold for SBP under 90 or HR under 50, Routine 175 (Given - Provider: Brooke Rodriguez, VERO) 0031 (Given - Provider: Karishma Malagon RN)0512 (Given - Provider: Karishma Malagon RN)1200 (Given - Provider: Reid Batista, VERO)1738 (Given - Provider: Reid Batista RN) morphine 2 mg/mL carpuject 2 mg (COMPLETED) 2 mg, Intravenous, ONCE, 1 dose, On Thu06/14/12 at 1645, Routine 1640 (Not Given - Provider: Brooke Rodriguez RN - Reason: Contraindicated)1641 (Given - Provider: Brooke Rodriguez, VERO) potassium chloride (K-DUR/KLOR-CON) extended release tablet 40 mEq (COMPLETED) 40 mEq, Oral, ONCE, 1 dose, On Thu06/14/12 at 2130, 20 mEq tablet may be dissolved in water for administration, Routine 2202 (Given - Provider: Brooke Rodriguez RN) rosuvastatin (CRESTOR) tablet 10 mg (CANCELED) 10 mg, Oral, EVERY EVENING, First dose on Thu06/14/12 at 1700, Until Discontinued, Routine 1752 (Given - Provider: Brooke Rodriguez RN) 1738 (Given - Provider: Reid Batista RN) Continuous Medication Order 06/13/2012 06/14/2012 06/15/2012 heparin 25,000 units in dextrose 5% 500 mL infusion (CANCELED) 350-7,000 Units/hr (rounded to 7-140 mL/hr), Intravenous, CONTINUOUS, Starting on Thu06/14/12 at 1530, Until Thu06/15/12 at 0821, Patient Weight 110-114 kg Initial dose - 1,000 units/hr = 20 mL/hr PTT less than 60 sec - increase by 450 units/hr = 9 mL/hr PTT 60-79 sec- increase by 200 units/hr = 4 mL/hr PTT 80-114 sec - no change PTT 115-129 sec - decrease by 100 units/hr = 2 mL/hr PTT 130-145 sec - stop infusion for 30 min then decrease by 200 units/hr = 4 mL/hr PTT greater than 145 sec - stop infusion for 60 min then decrease by 350 units/hr = 7 mL/hr PTT greater than 145 sec X 2 - call housekeeper child care See Bolus dosing guidance for aPTT values less than 80 seconds under PRN medications, Routine 1550 (New Bag - Provider: Brooke Rodriguez RN)2203 (Rate/Dose Change - Provider: Brooke Rodriguez RN - Comment: PTT 33) 0038 (Rate/Dose Verify - Provider: Karishma Malagon RN)0315 (Rate/Dose Change - Provider: Karishma Malagon RN) sodium chloride 0.9% infusion (CANCELED) 150 mL/hr, Intravenous, CONTINUOUS, Starting on Thu06/14/12 at 1530, Until Thu06/15/12 at 0821 1550 (New Bag - Provider: Brooke Rodriguez RN)2220 (New Bag - Provider: Brooke Rodriguez RN) 0038 (Rate/Dose Verify - Provider: Karishma Malagon RN)0508 (New Bag - Provider: Karishma Malagon RN)0524 (Stopped - Provider: Karishma Malagon RN - Comment: per MD buckle and button maker, hold for now) PRN Medication Order 06/13/2012 06/14/201206/15/2012 flu vaccine 2012 (36 mos+)(PF) (FLUZONE) 45 mcg (15 mcg x 3)/0.5 mL IM injection 0.5 mL (COMPLETED) 0.5 mL, Intramuscular, PRIOR TO DISCHARGE, 1 dose, Starting on Thu06/14/12 at 1414, Until Thu06/15/12 at 1743, Per Protocol, Hold for fever greater than 38.9C, Routine 1743 (Given - Provider: Reid Batista RN) heparin (porcine) injection 2,000-4,000 Units (CANCELED) 2,000-4,000 Units, Intravenous, BOLUS PER HEPARIN PROTOCOL, Starting on Thu06/14/12 at 1457, Until Thu06/15/12 at 1239, Per Protocol, Adjust to dosing chart, Patient Weight 110-114 kg PTT less than 60 seconds - 4,000 units PTT 60-79 seconds - 2,000 units PTT 80-114 seconds - no bolus , Routine 2203 (Given - Provider: Brooke Rodriguez RN - Comment: PTT 33) nitroGLYcerin (NITROSTAT) SL tablet 0.4 mg (CANCELED) 0.4 mg, Sublingual, EVERY 5 MIN PRN, Starting on Thu06/14/12 at 1457, Until Thu06/15/12 at 2004, Chest pain, May repeat every 5 minutes for a total of three doses. Notify provider if chest pain not relieved with nitroglycerin. Do not administer nitroglycerin if the patinet has received or taken phosphodiesterase (PDE-5) inhibitors such as sildenafil, tadalafil or vardenafil within the last 24 to 72 hours., Routine 2234 (Given - Provider: Brooke Rodriguez RN)2240 (Given - Provider: Brooke Rodriguez RN)2246 (Given - Provider: Brooke Rodriguez RN) 1239 (Given - Provider: Reid Batista RN)1247 (Given - Provider: Reid Batista RN)1252 (Given - Provider: Reid Batista RN) perflutren lipid microspheres (DEFINITY) injection 0.9 mL (COMPLETED) 0.9 mL, Intravenous, IMG ONCE PRN, 1 dose, Starting on Thu06/14/12 at 1601, Until 10/22/12 at 1545, Other, for enhancement of sub-optimal echo images, Echo Lab (Intra-Procedure), Routine 1545 (Given - Provider: Jaun Haley) Linked Groups Order Group 1: clopidogrel (PLAVIX) tablet 300 mg (COMPLETED)Jump to med 300 mg, Oral, ONCE, 1 dose, On Thu06/14/12 at 2100, Routine Followed by clopidogrel (PLAVIX) tablet 75 mgJump to med 75 mg, Oral, DAILY, First dose on Thu06/15/12 at 0900, Until Discontinued, Routine documented in this encounter Care Teams Ager Tender Relationship Specialty Start Date End Date Sarita Lim MD [address] [place] [address] PCP - General 07/16/10 documented as of this encounter
--- OUTSIDE RECORDS SUMMARY | 2024-04-30 13:43 | XMS_ITS | Encounter Summary ---
Author Organization [facility]ly [facility] Address [facility] [place] [address] Care Team Providers Care Senior Business Consultant Name Role Phone Coni Lim MD Primary Care Provider [phone] Reason for Visit * Reason Onset Date Comments Medication Refill 08/10/2013 Encounter Details Date Type Department Care Team (Late st Contact Info) Description 08/10/2013 Refill Cardiology at [address] [phone] Turner Tan MD [facility] [place] [address] Medication Refill Social History Tobacco Use Types Packs/Day Years [...] on filedocumented in this encounter Care Teams Senior Business Consultant Relationship Specialty Start Date End Date Coni Lim MD [address] [place] [address] PCP - General 07/16/10 documented as of this encounter
--- OUTSIDE RECORDS SUMMARY | 2024-04-30 13:43 | XMS_ITS | Encounter Summary ---
Author Organization [facility] [place] [address] Care Team Providers Care Door Closer Mechanic Name Role Phone Sarita Chew MD Primary Care Provider [phone] Reason for Referral * (Routine) - Closed by system - Referral Specialty Diagnoses / Procedures Referred By Contac t Referred To Contact Cardiac Rehabilitation Diagnoses S/P coronary artery stent placement Edy Trimble MD [facility] [place] [address] Referral ID Status Reason Start Date Expiration Date Visits Requested Visits Authorized [id number] Closed by system - Referral Evaluate and Treat 07/30/2013 01/26/2014 1 1 Encounter Details Date Type Department Care Team (Late st Contact Info) Description 07/29/2013 5:57 AM EST - 07/30/2013 10:58 AM EST Hospital Encounter [place] [id number] Taylor Dickinson PA [facility] [address] Supa Lopez MD [facility] [address] Agusto Ball II, MD [facility] [address] Edy Trimble MD [facility] [place] [address] ASCVD (arteriosclerotic cardiovascular disease); S/P coronary artery stent placement Discharge Disposition: Home Social History Tobacco Use [...] Sign Reading Time Taken Comments Blood Pressure 117/73 07/30/2013 8:04 AM EST Pulse 60 07/30/2013 8:04 AM EST Temperature 36.7 ??C (98.1 ??F) 07/30/2013 8:04 AM ES T Respiratory Rate 12 07/30/2013 8:04 AM EST Oxygen Saturation 96% 07/30/2013 8:04 AM EST Inhaled Oxygen Concentration - - [...] appointments: During 8am-5pm Thursday through Thursday call [phone] to speak with a nurse in the cardiology clinic All other times call [phone] and ask to speak to the industry operations investigator production dispatcher. Return to work: One week Driving: No driving for 48 hours after catheterization. Follow up Appointments: PCP Call for appointment in 1-2 weeks. 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 Please call for appointment Home oxygen therapy: N/A Arrangements for VNA/home care: none * Attachments The following attachments cannot be sent through Care Everywhere. * CARDIAC REHABILITATION: AFTER YOUR VISIT (MICRONESIAN) * CHEST PAIN (ANGINA): AFTER YOUR VISIT (MICRONESIAN) * PERCUTANEOUS CORONARY INTERVENTION: WHAT TO EXPECT AT HOME (MICRONESIAN) documented in this encounter Medications at Time [...] NSR JESSICA BARR RN * Turner Tan - 07/29/2013 11:26 AM EST Inpatient Cardiology [...] mg/dL MISCELLANEOUS LAB REQUEST Component Value Range [facility] Result Request received in lab. CK-MB [...] mg/dL MISCELLANEOUS LAB REQUEST Component Value Range [facility] Result Request received in lab. CK-MB [...] the Treatment of Subjects with de abby Tejon Coronary Artery Lesions PI: Edy Trimble MD Pager #:[phone] Research Coordinators: GLADYS Rosenbaum, BA, DRYING MACHINE OPERATOR PACKAGE YARNS Pager #:[phone] Oneil Newsome RN Pager #: [phone] Purpose: The pivotal trial to support the [place] pre-market approval (PMA) of Absorb BVS. ABSORB III will evaluate the safety and effectiveness of the Absorb BVS System compared to the XIENCE in the treatment of subjects, including those with diabetes mellitus, with ischemic heart disease caused by up to two denovo kotzebue coronary artery lesions in separate epicardial vessels. [...] through 5 years post procedure. Study ID#: [id number], JAM NOTE: Patient must remain blinded to their assigned study device!! * Curt Silva - 07/29/2013 7:25 AM EST ABSORB III RANDOMIZED CONTROLLED TRIAL A Clinical Evaluation of Absorb??? BVS, the Everolimus Eluting Bioresorbable Vascular Scaffold in the Treatment of Subjects with de abby Tejon Coronary Artery Lesions PI: Edy Trimble MD Pager #:[phone] Research Coordinators: GLADYS Rosenbaum, BA, DRYING MACHINE OPERATOR PACKAGE YARNS Pager #:[phone] Oneil Newsome RN Pager #: [phone] Purpose: The pivotal trial to support the [place] pre-market approval (PMA) of Absorb BVS. ABSORB III will evaluate the safety and effectiveness of the Absorb BVS System compared to the XIENCE in the treatment of subjects, including those with diabetes mellitus, with ischemic heart disease caused by up to two denovo kotzebue coronary artery lesions in separate epicardial vessels. [...] - 07/29/2013 11:16 AM EST Romeo Coe [id number] 07/29/2013 48 y.o. Admission History and Physical PCP: SARITA CHEW MD Referring: Adithya Lawson Date of Referral: [...] and clopidogrel per protocol. Randell Giles MD Mortgage Or Loan Underwriter Pager# [phone] 07/29/2013 Cardiology Attending Note: Patient seen and [...] 08/01/2013 8:56 PM ESTAssociated Order(s): SCAN DOC: CHASER HELPER documented in this encounter Miscellaneous Notes * [...] to the outpatient cardiac rehabilitation program at [place] was discussed. He participated briefly in the program at [facility] last year ( closest to him) but did not have a good experience so stopped. A referral will be sent to [place] the program and the patient will be [...] 3.5 X 18 mm JACINDA - [facility] 2009 post abnormal nuc stress +IW, [...] appointments: During 8am-5pm Thursday through Thursday call [phone] to speak with a nurse in the cardiology clinic All other times call [phone] and ask to speak to the industry operations investigator production dispatcher. Return to work: One week Driving: No driving for 48 hours after catheterization. Follow up Appointments: PCP Call for appointment in 1-2 weeks. 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 Please call for appointment Home oxygen therapy: N/A Arrangements for VNA/home care: none General Instructions None Future Appointments and Orders Future Orders Please Complete By Expires Referral to Cardiac Rehab [[id number] Custom] Process Instructions: If no progress note charted, please enter Clinical details in comments. Scheduling Instructions: Comments: Cardiac rehab @ [facility] Questions: Responses: Reason for referral angina, stent Provider Contact Information: Dr. Atilio Giles Section of Cardiology [facility] [phone] Discharge References/Attachments: Discharge References/Attachments None Signed: Turner [...] Procedure Name Priority Date/Time Associated Diagnosis Comments CHASER HELPER SCAN 08/01/2013 8:56 PM EST EKG 12-LEAD Routine 07/30/2013 8:41 AM EST ASCVD (arteriosclerotic cardiovascular disease) POCT GLUCOSE Routine 07/30/2013 8:09 AM EST DIFFERENTIAL, AUTOMATED Routine 07/30/2013 6:35 AM EST CBC (WITH DIFF) Routine 07/30/2013 6:35 AM EST BMP W/FASTING GLUCOSE Routine 07/30/2013 6:30 AM EST CARDIAC ENZYMES ([facility]) Routine 07/30/2013 6:30 AM EST LIPID PANEL (REFLEX DIRECT LDL) Routine 07/30/2013 6:30 AM EST MISCELLANEOUS LAB REQUEST Timed 07/30/2013 6:00 AM EST POCT GLUCOSE Routine 07/30/2013 4:18 AM EST POCT GLUCOSE Routine 07/30/2013 12:17 AM EST POCT GLUCOSE Routine 07/29/2013 8:02 PM EST MISCELLANEOUS LAB REQUEST Timed 07/29/2013 6:05 PM EST POCT GLUCOSE Routine 07/29/2013 4:53 PM EST CARDIAC ENZYMES ([facility]) STAT 07/29/2013 12:53 PM EST POCT GLUCOSE Routine 07/29/2013 12:36 PM EST EKG 12-LEAD Routine 07/29/2013 11:26 AM EST ASCVD (arteriosclerotic cardiovascular disease) CARDIAC ENZYMES ([facility]) Routine 07/29/2013 10:55 AM EST MISCELLANEOUS LAB REQUEST Routine 07/29/2013 9:24 AM EST EKG 12-LEAD Routine 07/29/2013 7:50 AM EST ASCVD (arteriosclerotic cardiovascular disease) POCT GLUCOSE Routine 07/29/2013 7:46 AM EST ELECTROLYTES PANEL STAT 07/29/2013 6: 06 AM EST ASCVD (arteriosclerotic cardiovascular disease) documented in this encounter Results * SCAN DOC: CHASER HELPER (08/01/2013 8:56 PM EST) Anatomical Region Laterality [...] (Bezet) 405 ms MUSE SYSTEM Calculated P Wilmot 7 degrees MUSE SYSTEM Calculated R Wilmot 24 degrees MUSE SYSTEM Calculated T Wilmot 20 degrees MUSE SYSTEM INTERPRETATION Normal sinus rhythm Normal ECG When compared with ECG of 29-JUL-2013 11:26, No significant change was found Confirmed by MD JACKSON, [place] ([id number]) on 07/30/2013 11:46:49 AM MUSE SYSTEM 07/30/2013 8:41 AM EST 07/30/2013 11:46 AM EST Edy Damon MD ECG ORDERABLES MUSE SYSTEM * POCT Glucose (07/30/2013 8:09 AM EST) Glucose, POC 156 60 - 199 mg/dL CERNER MILLENNIUM Comment: Supplemental ranges: <110 mg/dL before meals <200 mg/dL all other times of the day Blood specimen (specimen) 07/30/2013 8:09 AM EST 07/30/2013 8:09 AM EST Supa Lopez MD POINT OF CARE TEST ORDERABLES Performing Organization Address [facility] Co de Phone Number CERNER MILLENNIUM * Differential, Automated (07/30/2013 6:35 AM EST) Neutrophil % 60.0 34.0 - 71.0 % CERNER MILLENNIUM Neutrophil Absolute 5.42 1.50 - 6.30 x10(3)/mcL CERNER MILLENNIUM Lymph % 27.8 19.0 - 53.0 % [...] EST Edy Damon MD HEMATOLOGY ORDERABLE S Performing Organization Address [facility] Co de Phone Number TANG CLEMENSIUM * CBC (with Diff) (07/30/2013 6:35 AM [...] Lab Edy Damon MD HEMATOLOGY ORDERABLE S Performing Organization Address [facility] de Phone Number TANG NORTON * (ABNORMAL) Lipid panel (fasting) (07/30/2013 6:30 AM EST) Cholesterol, Total 154 <=199 mg/dL CERNER MILLENNIUM Comment: Recommendations of the NCEP Adult Treatment Panel for the following risk cutoff thresholds for the [place] population: Desirable: <200 mg/dL Borderline High: 200-239 mg/dL High: > or = 240 mg/dL Triglyceride 156(H) <=149 mg/dL CERNER MILLENNIUM Comment: Reference Range: Normal triglycerides: ??<150 mg/dL Borderline high: ??150-199 mg/dL High: ??200-499 mg/dL Very high: ??>ek=702 mg/dL RACHEL 2001; 285(19):2277-4755 HDL Cholesterol 36(L) >=40 mg/dL CER NER MILLENNIUM Comment: Reference range: ??Low HDL: ?? < 40 mg/dL ??Normal: ?40-60 mg/dL ??Desirable: > 60 mg/dL RACHEL 2001; 285(19):3807-0776 LDL Cholesterol 87 <=99 mg/dL CER NER MILLENNIUM Comment: Reference range: ?? Optimal: ?<100 mg/dL ?? Near Optimal/Above Optimal: ?? 100-129 mg/dL ?? Borderline high: ?130-159 mg/dL ?? High: ? 160-189 mg/dL ?? Very high: ?>nv=345 mg/dL RACHEL 2001: 285(19):1766-6154 Cholesterol/HDL Ratio 4.3 ratio CERNER MILLENNIUM Comment: A Cholesterol to HDL ratio below 4:1 is desirable. ??Studies suggest that increased CAD risk occurs at ratios above 5 for females and above 6 for men. ? [place] Heart Association ??(http://www.americanheart.org) ? Pallavi Int Med, 1994; 121:641 ? AM J Med, 1998; 105(1A):48S Blood specimen (specimen) 07/30/2013 6:30 AM EST 07/30/2013 6:44 AM EST Narrative Resulting Agency Comment Spec In Lab Edy Damon MD CHEMISTRY ORDERABLES TANG CLEMENSIUM * (ABNORMAL) BMP w/fasting Glucose (07/30/2013 6:30 AM EST) Glucose Fasting 156(H) 65 - 99 mg/dL CERNER MILLENNIUM Comment: [...] of Diabetes Mellitus, Position Statement from the [place] Diabetes Association. ??Diabetes Care, Volume 33, Supplement 1, Aug 2009 Blood Urea Nitrogen 11 10 - 20 mg/dL CERNER MILLENNIUM Creatinine 0.62(L) 0.80 - 1.50 mg/dL CERNER MILLENNIUM Comment: Please note that the pediatric reference intervals supplied above were not validated at [facility]. Results from pediatric patients should be interpreted [...] In Lab Edy Damon MD CHEMISTRY ORDERABLES [facility] * Cardiac Enzymes (07/30/2013 6:30 AM EST) Troponin-T <0.03 <=0.03 ng/mL VERAANNABEL nubelo Comment: 0.03 ng/mL: Represents the 99th percentile [...] consensus document of the Joint Society of Cardiology/[place] College of Cardiology Committee for the redefinition of myocardial infarction. ??Journal of the [place] College of Cardiology 2000; 36: 959-969] Creatine Kinase 60 0 - 200 unit/L TANG i[facility] Blood specimen (specimen) 07/30/2013 6:30 AM EST 07/30/2013 6:44 AM EST Narrative Resulting Agency Comment Spec In Lab Edy Damon MD CHEMISTRY ORDERABLES Performing Organization Address [facility] Phone Number [facility] * Miscellaneous Lab request (07/30/2013 6:00 AM EST) Label Request received in lab. [facility] Blood specimen (specimen) 07/30/2013 6:00 AM EST 07/30/2013 6:31 AM EST Edy Damon MD LAB SEND OUT ORDERAB LES Performing Organization Address [facility] Phone Number [facility] * POCT Glucose (07/30/2013 4:18 AM EST) Glucose, POC 145 60 - 199 mg/dL [facility] Comment: Supplemental ranges: <110 mg/dL before meals <200 mg/dL all other times of the day Blood specimen (specimen) 07/30/2013 4:18 AM EST 07/30/2013 4:18 AM EST Supa Lopez MD POINT OF CARE TEST ORDERABLES Performing Organization Address [facility] Phone Number [facility] * POCT Glucose (07/30/2013 12:17 AM EST) Glucose, POC 129 60 - 199 mg/dL [facility] Comment: Supplemental ranges: <110 mg/dL before meals <200 mg/dL all other times of the day Blood specimen (specimen) 07/30/2013 12:17 AM EST 07/30/2013 12:17 AM EST Supa Lopez MD POINT OF CARE TEST ORDERABLES Performing Organization Address [facility] Phone Number [facility] * POCT Glucose (07/29/2013 8:02 PM EST) Glucose, POC 127 60 - 199 mg/dL [facility] Comment: Supplemental ranges: <110 mg/dL before meals <200 mg/dL all other times of the day Blood specimen (specimen) 07/29/2013 8:02 PM EST 07/29/2013 8:02 PM EST Supa Lopez MD POINT OF CARE TEST ORDERABLES Performing Organization Address [facility] Phone Number [facility] * Miscellaneous Lab request (07/29/2013 6:05 PM EST) Label Request received in lab. [facility] Blood specimen (specimen) 07/29/2013 6:05 PM EST 07/29/2013 6:17 PM EST Edy Damon MD LAB SEND OUT ORDERAB LES Performing Organization Address [facility] Phone Number [facility] * POCT Glucose (07/29/2013 4:53 PM EST) Pathologist [facility] Glucose, POC 138 60 - 199 mg/dL [facility] Comment: Supplemental ranges: <110 mg/dL before meals <200 mg/dL all other times of the day Blood specimen (specimen) 07/29/2013 4:53 PM EST 07/29/2013 4:53 PM EST Supa Lopez MD POINT OF CARE TEST ORDERABLES Performing Organization Address [facility] Phone Number [facility] * Cardiac Enzymes (07/29/2013 12:53 PM EST) [facility] Troponin-T <0.03 <=0.03 ng/mL [facility] Comment: 0.03 ng/mL: Represents the 99th percentile [...] consensus document of the Joint Society of Cardiology/[place] College of Cardiology Committee for the redefinition of myocardial infarction. ??Journal of the [place] College of Cardiology 2000; 36: 959-969] Creatine Kinase 55 0 - 200 unit/L [facility] Blood specimen (specimen) 07/29/2013 12:53 PM EST 07/29/2013 12:59 PM EST Narrative Resulting Agency Comment Spec In Lab Edy Damon MD CHEMISTRY ORDERABLES Performing Organization Address City/[facility]/ZIP Co de Phone Number [facility] * POCT Glucose (07/29/2013 12:36 PM EST) Glucose, POC 142 60 - 199 mg/dL [facility] Comment: Supplemental ranges: <110 mg/dL before meals <200 mg/dL all other times of the day Blood specimen (specimen) 07/29/2013 12:36 PM EST 07/29/2013 12:36 PM EST Supa Lopez MD POINT OF CARE TEST ORDERABLES Performing Organization Address [facility] Co de Phone Number [facility] * EKG 12 Lead (07/29/2013 11:26 AM EST) Ventricular rate 67 BPM MUSE SYSTEM Atrial Rate 67 BPM MUSE SYSTEM P-R Interval 164 ms MUSE SYSTEM QRS Duration 90 ms MUSE SYSTEM Q-T Interval 394 ms MUSE SYSTEM QTC Calculated (Bezet) 416 ms MUSE SYSTEM Calculated P Wilmot 48 degrees MUSE SYSTEM Calculated R Wilmot 33 degrees MUSE SYSTEM Calculated T Wilmot 32 degrees MUSE SYSTEM INTERPRETATION Normal sinus rhythm Normal ECG When compared with ECG of 29-JUL-2013 07:50, (unconfirmed) No significant change was found Confirmed by MD MARKS ALAN ([id number]) on 07/30/2013 7:39:47 AM MUSE SYSTEM 07/29/2013 11:2 6 AM EST 07/30/2013 7:39 AM EST Edy Damon MD ECG ORDERABLES MUSE SYSTEM * Cardiac Enzymes (07/29/2013 10:55 AM EST) Troponin-T <0.03 <=0.03 ng/mL TANG NORTON Comment: 0.03 ng/mL: Represents the 99th percentile [...] consensus document of the Joint Society of Cardiology/[place] College of Cardiology Committee for the redefinition of myocardial infarction. ??Journal of the [place] College of Cardiology 2000; 36: 959-969] Creatine Kinase 50 0 - 200 unit/L TANG NORTON Blood specimen (specimen) 07/29/2013 10:55 AM EST 07/29/2013 11:08 AM EST Narrative Resulting Agency Comment Spec In Lab Edy Damon MD CHEMISTRY ORDERABLES Performing Organization Address [facility] Co de Phone Number TANG NORTON * Miscellaneous Lab request (07/29/2013 9:24 AM EST) Label Request received in lab. TANG NORTON Blood specimen (specimen) 07/29/2013 9:24 AM EST 07/29/2013 10:56 AM EST Edy Damon MD LAB SEND OUT ORDERAB LES TANG NORTON * EKG 12 Lead (07/29/2013 7:50 AM EST) Ventricular rate 72 BPM MUSE SYSTEM Atrial Rate 72 BPM MUSE SYSTEM P-R Interval 136 ms MUSE SYSTEM QRS Duration 94 ms MUSE SYSTEM Q-T Interval 372 ms MUSE SYSTEM QTC Calculated (Bezet) 407 ms MUSE SYSTEM Calculated P Wilmot 3 degrees MUSE SYSTEM Calculated R Wilmot 42 degrees MUSE SYSTEM Calculated T Wilmot 36 degrees MUSE SYSTEM INTERPRETATION Normal sinus rhythm Normal ECG When compared with ECG of 15-JUN-2012 12:40, No significant change was found Confirmed by MD MARKS ALAN ([id number]) on 07/30/2013 7:24:11 AM MUSE SYSTEM 07/29/2013 7:50 AM EST 07/30/2013 7:24 AM EST Edy Damon MD ECG ORDERABLES MUSE SYSTEM * POCT Glucose (07/29/2013 7:46 AM EST) Pathologist [facility] Glucose, POC 160 60 - 199 mg/dL CERNER MILLENNIUM Comment: Supplemental ranges: <110 mg/dL before meals <200 mg/dL all other times of the day Blood specimen (specimen) 07/29/2013 7:46 AM EST 07/29/2013 7:46 AM EST Supa Lopez MD POINT OF CARE TEST ORDERABLES CERNER MILLENNIUM * (ABNORMAL) Electrolytes panel (07/29/2013 6:06 AM [...] In Lab Juan Ball MD CHEMISTRY ORDERABLES TANG NORTON documented in this encounter Visit Diagnoses Diagnosis CAD (coronary artery disease), non-obstructive- Primary Coronary atherosclerosis of unspecified type of vessel, kotzebue or graft ASCVD (arteriosclerotic cardiovascular disease) Unspecified cardiovascular disease S/P coronary artery stent placement Postsurgical percutaneous transluminal coronary angioplasty status documented in this encounter Administered Medications Inactive Administered Medications - up to 3 most recent administrations Medication Order MAR Action Action Date Dose Rate Site aspirin EC tablet 81 mg 81 mg, Oral, DAILY, First dose on Thu07/30/13 at 0900, Until Discontinued, Routine Given 07/30/2013 8:26 AM EST 81 mg clopidogrel (PLAVIX) tablet 75 mg 75 mg, Oral, DAILY, First dose on Thu07/29/13 at 1245, Until Discontinued, Routine Given 07/30/2013 8:26 AM EST 75 mg cyclobenzaprine (FLEXERIL) tablet 10 mg [...] Given 07/29/2013 9:22 PM EST 60 mg furosemide (LASIX) tablet 20 mg 20 mg, [...] Given 07/29/2013 3:00 PM EST 300 mg insulin aspart (novoLOG) PEN injection 1-4 Units [...] Given 07/30/2013 4:24 AM EST 1 Units isosorbide mononitrate (IMDUR) CR tablet 120 mg 120 mg, Oral, EVERY MORNING, First dose on Thu07/30/13 at 0600, Until Discontinued, Routine Given 07/30/2013 6:38 AM EST 120 mg metoprolol tartrate (LOPRESSOR) tablet 50 mg 50 mg, Oral, 2 TIMES DAILY, First dose on Thu07/29/13 at 1245, Until Discontinued, Routine Given 07/30/2013 8:26 AM EST 50 mg Given 07/29/2013 9:22 PM EST 50 mg pantoprazole (PROTONIX) tablet 20 mg 20 mg, Oral, DAILY, First dose on Thu07/30/13 at 0900, Until Discontinued, Restricted to patients [...] 81 mg, Oral, DAILY, First dose on Thu07/30/13 at 0900, Until Discontinued, Routine 1342 (OCT Hold - Provider: Admin Adt - Reason: Transfer to a Procedural area)1343 (OCT Unhold - Provider: Admin Adt) 0826 (Given - Provider: Reina Randall RN) clopidogrel (PLAVIX) tablet 75 mg (CANCELED) 75 mg, Oral, DAILY, First dose on Thu07/29/13 at 1245, Until Discontinued, Routine 1245 (Not Given - Provider: Jessica Barr RN - Reason: See comment - Comment: pt took in a.m.)1342 (OCT Hold - Provider: Admin Adt - Reason: Transfer to a Procedural area)1343 (OCT Unhold - Provider: Admin Adt) 0826 (Given - Provider: Reina Randall RN) cyclobenzaprine (FLEXERIL) tablet 10 mg (CANCELED) 10 mg, Oral, NIGHTLY, First dose on Thu07/29/13 at 2100, Until Discontinued, Routine 1342 ([facility] Hold - Provider: Admin Adt - Reason: Transfer to a Procedural area)1343 ([facility] Unhold - Provider: Admin Adt)212 (Given - Provider: Mahesh Hurt RN) diaZEPam (VALIUM) tablet 5 mg (COMPLETED) 5 mg, Oral, ONCE, 1 dose, On Thu07/29/13 at 0800, Cath (Day of Procedure), Routine 0838 (Given - Provider: Kemi Mullen, VERO) DILTiazem (DILACOR XR) XR capsule 240 mg (CANCELED) 240 mg, Oral, DAILY, First dose on Thu07/30/13 at 0900, Until Discontinued, Routine 1342 ([facility] Hold - Provider: Admin Adt - Reason: Transfer to a Procedural area)1343 ([facility] Unhold - Provider: Admin Adt) 0826 (Given - Provider: Reina Randall RN) diphenhydrAMINE (BENADRYL) capsule 25 mg (COMPLETED) 25 mg, Oral, ONCE, 1 dose, On Thu07/29/13 at 0800, Cath (Day of Procedure), Routine 0839 (Given - Provider: Kemi Mullen, VERO) DULoxetine (CYMBALTA) capsule 60 mg (CANCELED) 60 mg, Oral, 2 TIMES DAILY, First dose on Thu07/29/13 at 2100, Until Discontinued, Routine 1342 ([facility] Hold - Provider: Admin Adt - Reason: Transfer to a Procedural area)1343 ([facility] Unhold - Provider: Admin Adt)212 (Given - Provider: Mahesh Hurt RN) 0826 (Given - Provider: Reina Randall RN) furosemide (LASIX) tablet 20 mg (CANCELED) 20 mg, Oral, DAILY, First dose on Thu07/29/13 at 1245, Until Discontinued, Routine 1245 (Not Given - Provider: Jessica Barr RN - Reason: Patient/family refused)1342 ([facility] Hold - Provider: Admin Adt - Reason: Transfer to a Procedural area)1343 ([facility] Unhold - Provider: Admin Adt) 0826 (Given - Provider: Reina Randall RN) gabapentin (NEURONTIN) capsule 300 mg (CANCELED) 300 mg, Oral, 3 TIMES DAILY, First dose on Thu07/29/13 at 1500, Until Discontinued, Routine 1342 ([facility] Hold - Provider: Admin Adt - Reason: Transfer to a Procedural area)1343 (OCT Unhold - Provider: Admin Adt)1500 (Given - Provider: Jessica Barr RN)2122 (Given - Provider: Mahesh Hurt RN) 0826 (Given - Provider: Reina Randall [...] RN - Reason: Order parameters not met)1342 ([facility] Hold - Provider: Admin Adt - Reason: Transfer to a Procedural area)1343 (MAR Unhold - Provider: Admin Adt)1600 (Not Given - Provider: Jessica Barr RN - Reason: Order parameters not met)2002 (Not Given - Provider: Mahesh Hurt RN - Reason: Contraindicated) 0015 (Not Given - Provider: Mahesh Hurt RN - Reason: Contraindicated)0424 (Given - Provider: Mahesh Hurt RN)0815 (Given - Provider: Reina Randall RN - Comment: FSBS 156) isosorbide mononitrate (IMDUR) CR tablet 120 mg (CANCELED) 120 mg, Oral, EVERY MORNING, First dose on Thu07/30/13 at 0600, Until Discontinued, Routine 1342 (OCT Hold - Provider: Admin Adt - Reason: Transfer to a Procedural area)1343 ([facility] Unhold - Provider: Admin Adt) 0638 (Given - Provider: Mahesh Hurt RN) metoprolol tartrate (LOPRESSOR) tablet 50 mg (CANCELED) 50 mg, Oral, 2 TIMES DAILY, First dose on Thu07/29/13 at 1245, Until Discontinued, Routine 1245 (Not Given - Provider: Jessica aBrr RN - Reason: See comment - Comment: pt took in a.m.)1342 ([facility] Hold - Provider: Admin Adt - Reason: Transfer to a Procedural area)1343 ([facility] Unhold - Provider: Admin Adt)2122 (Given - Provider: Mahesh Hurt RN) 0826 (Given - Provider: Reina Randall RN) pantoprazole (PROTONIX) tablet 20 mg 20 mg, Oral, DAILY, First dose on Thu07/30/13 at 0900, Until Discontinued, Restricted to patients on clopidpgrel (PLAVIX) who require a proton pump inhibitor 1342 ([facility] Hold - Provider: Admin Adt - Reason: Transfer to a Procedural area)1343 ([facility] Unhold - Provider: Admin Adt) 0826 (Given - Provider: Reina Randall RN) rosuvastatin (CRESTOR) tablet 10 mg (CANCELED) 10 mg, Oral, EVERY EVENING, First dose on Thu07/29/13 at 1700, Until Discontinued, Routine 1342 ([facility] Hold - Provider: Admin Adt - Reason: Transfer to a Procedural area)1343 ([facility] Unhold - Provider: Admin Adt)1700 (Given - [...] (New Bag - Provider: Keeley Kyle RN)1342 ([facility] Hold - Provider: Admin Adt - Reason: Transfer to a Procedural area)1343 ([facility] Unhold - Provider: Admin Adt)1652 (Stopped - Provider: Jessica Barr RN) PRN Medication Order 07/28/2013 07/29/2013 07/30/2013 adenosine 90 mg in sodium chloride 0.9% 90 mL infusion (PROCEDURE ANALYST) (CANCELED) CONTINUOUS PRN, Starting on Thu07/29/13 at [...] Juan Ren RN)1023 (Given - Provider: Daniel Asif, VERO)1034 (Given - Provider: Daniel Asif RN) iohexol (OMNIPAQUE) 350 mg iodine/mL injection (CANCELED) ONCE PRN, Starting on Thu07/29/13 at 1100, Until Thu07/29/13 at 1119, Per Protocol, Cath (Intra-Procedure), Routine 1100 (Given - Provider: Torey Asif RN) midazolam (VERSED) injection (CANCELED) ONCE PRN, Starting on Thu07/29/13 at 1002, Until Thu07/29/13 at 1119, Sleep, Cath (Intra-Procedure), Routine 1002 (Given - Provider: Juan Ren RN)1049 (Given - Provider: Daniel Asif RN) nitroGLYcerin (NITROSTAT) SL tablet 0.4 mg 0.4 mg, Sublingual, DAILY PRN, Starting on Thu07/29/13 at 1118, Until Thu07/30/13 at 1308, Chest pain, May repeat every [...] MD) documented in this encounter Care Teams Door Closer Mechanic Relationship Specialty Start Date End Date Sarita Chew MD [address] [place] [address] PCP - General 07/16/10 documented as of this encounter
--- OUTSIDE RECORDS SUMMARY | 2024-04-30 13:43 | XMS_ITS | Encounter Summary ---
Author Organization [facility]ly [facility] [place] [address] Care Team Providers Care Pipe And Boiler Covers Supervisor Name Role Phone Coni Lim MD Primary Care Provider [phone] Encounter Details Date Type Department Care Team (Late st Contact Info) Description 08/02/2015 Telephone Cardiology at [address] [phone] Destin Patel, RN Social History Tobacco Use Types Packs/Day [...] encounter Miscellaneous Notes * Telephone Encounter - Destin Patel, RN - 08/02/2015 1:04 PM EST I spoke with Dasia Coe today regarding her Romeo's recent ABSORB III follow up. I specifically inquired about his recent NTG use. She stated that he has been doing fine and was in no distress. She also stated that his PCP is aware and is following him. In fact, she stated, he has an appointment to see Coni Lim next week. I also inquired about his recent admission for stroke at [facility], for which he still has some memory issues. I stated that I would like to follow up at a later time point with him directly to ask about the course of his care related to the stroke admission. documented in this encounter Plan of Treatment Not on file documented as of this encounter Visit Diagnoses Not on filedocumented in this encounter Care Teams Pipe And Boiler Covers Supervisor Relationship Specialty Start Date End Date Coni Lim MD [address] [place] [address] PCP - General 07/16/10 documented as of this encounter
--- OUTSIDE RECORDS SUMMARY | 2024-04-30 13:43 | XMS_ITS | Encounter Summary ---
Author Organization [facility] [place] [address] Care Team Providers Care Injection Molding Process Technician Name Role Phone Coni Lim MD Primary Care Provider [phone] Reason for Visit * Reason Onset Date Comments Medication Refill 08/10/2013 Encounter Details Date Type Department Care Team (Late st Contact Info) Description 08/10/2013 Refill Cardiology at [address] [phone] Turner Tan MD [facility] [place] [address] Medication Refill Social History Tobacco Use Types [...] Coronary atherosclerosis of unspecified type of vessel, [place] or graft documented in this encounter Care Teams Injection Molding Process Technician Relationship Specialty Start Date End Date Coni Lim MD [address] [place] [address] PCP - General 07/16/10 documented as of this encounter
--- OUTSIDE RECORDS SUMMARY | 2024-04-30 13:43 | XMS_ITS | Encounter Summary ---
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 [place] [address] CAD (coronary artery disease), non-obstructive; S/P coronary artery stent placement Discharge Disposition: [...] Sign Reading Time Taken Comments Blood Pressure 121/79 06/04/2012 6:52 AM EDT Pulse 70 06/04/2012 6:52 AM EDT Temperature 36.8 ??C (98.2 ??F) 06/04/2012 6:52 AM ED T Respiratory Rate 15 06/04/2012 6:52 AM EDT Oxygen Saturation 97% 06/04/2012 4:00 AM EDT Inhaled Oxygen Concentration - - Weight 111.1 kg (245 lb) 06/03/2012 10:39 AM EDT Height 179.1 cm (5' 10.5) 06/03/2012 10:39 AM E DT Body Mass Index 34.66 06/03/2012 10:39 AM EDT documented in this encounter Discharge Instructions * Patient Instructions* Bryan Stephen MD - 06/03/2012 1:37 PM EDT Call your doctor if: Chest pain, dyspnea, pain or swelling in legs occurs. If you have non-emergent questions between now and the time of your follow up appointments: During 8am-5pm Thursday through Thursday call [phone] to speak with a nurse in the cardiology clinic All other times call [phone] and ask to speak to the crib clerk recreational resort manager. Return to work: One week Driving: No driving for 48 hours after catheterization. Follow up Appointments: PCP: SARITA CHEW MD , Call for appointment in 1-2 weeks. Sand Control Worker: Dr Leyva, You should be seen in 3-4 weeks for follow up. Please call for appointment * Attachments The following attachments cannot be sent through Care Everywhere. * PERCUTANEOUS CORONARY INTERVENTION: WHAT TO EXPECT AT HOME (PUERTO RICAN) * CHEST PAIN (ANGINA): AFTER YOUR VISIT (PUERTO RICAN) documented in this encounter Medications at Time of Discharge Medication Sig Dispensed Refills Start Date End Date DULoxetine (CYMBALTA) 60 mg capsule Take 60 mg by mouth 2 times daily. cyclobenzaprine (FLEXERIL) 10 mg tablet Take 10 mg by mouth nightly. aspirin 81 mg EC tablet Take 1 tablet by mouth daily. 30 tablet 06/04/2012 11/21/2016 isosorbide mononitrate (IMDUR) 30 mg 24 hr tablet Take 1 tablet by mouth daily. 30 tablet 1 06/04/2012 06/15/2012 ticagrelor (BRILINTA) 90 mg Tab tablet Take 1 tablet by mouth 2 times daily. 60 tablet 11 06/04/2012 06/15/2012 rosuvastatin (CRESTOR) 10 mg tablet Take 1 tablet by mouth daily. 30 tablet 3 06/04/2012 09/12/2017 nitroGLYcerin (NITROSTAT) 0.[address] 0.4 mg under the tongue every 5 minutes as needed. 03/16/2019 DILTiazem (DILACOR XR) 240 mg 24 hr capsule Take 240 mg by mouth daily. 11/21/2016 metoprolol tartrate (LOPRESSOR) 25 mg tablet Take 12.5 mg by mouth 2 times daily. Half tablet = 12.5m daily 06/15/2012 omeprazole (PRILOSEC) 20 mg capsule Take 20 mg by mouth daily. 07/30/2013 magnesium oxide (MAG-OX) 400 mg tablet Take 400 mg by mouth 2 times daily. 11/21/2016 quinine 260 mg tablet Take 260 mg by mouth daily as needed. 11/21/2016 documented as of this encounter Progress Notes * Bryan Stephen MD - 06/04/2012 8:32 AM EDT Inpatient Cardiology Discharge Day Note Patient Name: Romeo Coelho Service: PCI Team Responsible Attending: Dr. Cotter Reason for continued hospitalization: s/p PCI Active Problems: No resolved problems to display. Active Hospital Problems Diagnoses ??? CAD (coronary artery disease), non-obstructive ??? HTN (hypertension) ??? Smoker ??? GERD (gastroesophageal reflux disease) ??? Dyslipidemia ??? DM (diabetes mellitus) Resolved Hospital Problems Diagnoses Date Resolved Interval History: Patient seen and examined this morning. No events overnight. Patient has ambulated with nursing including up a flight of stairs without angina (significant change compared to his functional status prior to revascularization). Review of Systems: ROS - no new complaints Telemetry: NSR Meds: Current facility-administered medications ordered in [facility] Medication Dose Route Frequency Provider Last Rate Last Dose ??? diaZEPam (VALIUM) tablet 5 mg 5 mg Oral Once LENORE Hoffman Last Dose: 5 mg at 06/03/12 1323 ??? diphenhydrAMINE (BENADRYL) capsule 25 mg 25 mg Oral Once LENORE Hoffman Last Dose: 25 mg at 06/03/12 1324 ??? DILTiazem (DILACOR XR) XR capsule 240 mg 240 mg Oral Daily Bryan Stephen MD ??? DULoxetine (CYMBALTA) capsule 60 mg 60 mg Oral BID Bryan Stephen MD Last Dose: 60 mg at 06/03/12 1939 ??? isosorbide mononitrate (IMDUR) CR tablet 90 mg 90 mg Oral Daily Bryan Stephen MD ??? metoprolol (LOPRESSOR) tablet 12.5 mg 12.5 mg Oral BID Bryan Stephen MD Last Dose: 12.5 mg at 06/03/12 194 ??? simvastatin (ZOCOR) tablet 40 mg 40 mg Oral Nightly Bryan Stephen MD Last Dose: 40 mg at 06/03/121940 ??? sodium chloride 0.9% infusion 100 mL/hr Intravenous Continuous Bryan Stephen MD Last Dose: 100 mL/hr at 06/04/12 0000 ??? aspirin EC tablet 81 mg 81 mg Oral Daily Bryan Stephen MD ??? ticagrelor (BRILINTA) tablet 90 mg 90 mg Oral BID Bryan Stephen MD Last Dose: 90 mg at 06/04/12 0600 ??? nitroGLYcerin (NITROSTAT) SL tablet 0.4 mg 0.4 mg Sublingual Daily PRN Bryan Stephen MD ??? dextrose 50% injection 25-50 mL 12.5-25 g Intravenous Q1H PRN Bryan Stephen MD ??? glucagon (human recombinant) injection 1 mg 1 mg Intramuscular Q1H PRN Bryan Stephen MD ? ? insulin aspart (NOVOLOG) PEN injection 1-4 Units 1-4 Units Subcutaneous 4 Times Daily AC & HS Bryan Stephen MD Last Dose: 2 Units at 06/04/12 0730 ??? lidocaine HCl (URO-JET) 2 % gel ??? DISCONTD: sodium chloride 0.9 % flush 5 mL 5 mL Intravenous Q12H LENORE Hoffman ??? DISCONTD: sodium chloride 0.9% infusion 200 mL/hr Intravenous Continuous LENORE Hoffman ??? DISCONTD: lidocaine (XYLOCAINE) 10 mg/mL (1 %) injection Once PRN Kathie Cotter MD Last Dose: 100 mg at 06/03/12 1416 ??? DISCONTD: fentaNYL 50mcg/mL injection Once PRN Kathie Cotter MD Last Dose: 25 mcg at 06/03/12 1430 ??? DISCONTD: midazolam (VERSED) injection Intravenous Once PRN Kathie Cotter MD Last Dose: 1 mg at1 1526 ??? DISCONTD: heparin (porcine) injection Once PRN Kathie Cotter MD Last Dose: 2500 Units at 06/03/12 1435 ??? DISCONTD: sodium chloride 0.9% infusion Intravenous Continuous PRN Kathie Cotter MD Last Dose: 250 mL/hr at 06/03/12 1438 ??? DISCONTD: bivalirudin (ANGIOMAX) injection Once PRN Kathie Cotter MD Last Dose: 83.3 mg at 06/03/12 1509 ??? DISCONTD: bivalirudin (ANGIOMAX) 250 mg in sodium chloride 0.9% 50 mL infusion (PROPERTY INSPECTOR) Intravenous Continuous PRN Kathie Cotter MD Last Dose: 194.3 mg/hr at 06/03/12 1509 ??? DISCONTD: adenosine 90 mg in sodium chloride 0.9% 90 mL infusion (PROPERTY INSPECTOR) Intravenous Continuous PRN Kathie Cotter MD Last Dose: 140 mcg/kg/min at 06/03/12 1511 ??? DISCONTD: sodium chloride 0.9% infusion Intravenous Continuous PRN Kathie Cotter MD ??? DISCONTD: fentaNYL 50mcg/mL injection Once PRN Kathie Cotter MD Last Dose: 25 mcg at 06/03/12 1535 ??? DISCONTD: nitroGLYCerin 100 mcg/mL intracoronary dilution Once PRN Kathie Cotter MD Last Dose: 150 mcg at 06/03/12 1543 ??? DISCONTD: ticagrelor (BRILINTA) tablet Oral Once PRN Kathie Cotter MD Last Dose: 180 mg at 06/03/12 1539 ??? DISCONTD: atropine injection 1 mg 1 mg Intravenous Q15 Min PRN Bryan Stephen MD ??? DISCONTD: fentaNYL 50mcg/mL injection 25 mcg Intravenous Q15 Min PRN Bryan Stephen MD ??? DISCONTD: midazolam (VERSED) injection 1 mg 1 mg Intravenous Q30 Min PRN Bryan Stephen MD ??? DISCONTD: acetaminophen (TYLENOL) tablet 650 mg 650 mg Oral Q6H PRN Bryan Stephen MD No current Epic-ordered outpatient prescriptions on file. Physical Exam: Vital Signs: Last value Range last 8 hrs Temperature Temp: 36.8 ??C (98.2 ??F) Temp: [36.8 ??C (98.2 ??F)-36.9 ??C (98.4 ??F)] Heart Rate Heart Rate: 70 Heart Rate: [70-94] Blood Pressure BP: 121/79 mmHg BP: (121-131)/(79-90) Respiratory Rate Resp: 15 Resp: [15-18] SpO2 SpO2: 97 % SpO2: [97 %] Physical Exam General: well-appearing, NAD HEENT: NC/AT, anicteric sclerae, OP clear, MMM Neck: supple, no LAD, no bruits or JVP Lungs: CTAB CV: RRR, S1, S2, no M/R/G Abd: NABS, soft, NT, ND Ext: no C/C/E R Groin: access site soft, no hematoma or bruit Vascular: 2+ radial, femoral, DP, PT pulses b/l Lab Comments: Recent Results (from the past 24 hour(s)) POCT GLUCOSE Component Value Range ??? POC Glucose 147 60 - 199 (mg/dL) CARDIAC ENZYMES Component Value Range ? ? Troponin-T <0.03 <=0.03 (ng/mL) ??? CK, Total 41 0 - 200 (unit/L) POCT GLUCOSE Component Value Range ??? POC Glucose 97 60 - 199 (mg/dL) POCT GLUCOSE Component Value Range ??? POC Glucose 163 60 - 199 (mg/dL) CBC (WITH DIFF) Component Value Range ??? WBC 6.4 4.0 - 10.0 (x10(3)/mcL) ??? RBC 4.78 4.63 - 6.08 (x10(6)/mcL) ??? Hemoglobin 14.6 13.7 - 17.5 (gm/dL) ??? Hematocrit 42.7 40.0 - 51.0 (%) ??? MCV 89.3 79.0 - 92.0 (fL) ??? MCH 30.5 25.6 - 32.2 (pg) ??? MCHC 34.2 32.0 - 36.5 (gm/dL) ??? Platelets 154 145 - 370 (x10(3)/mcL) ??? RDWSD 41.0 35.0 - 46.0 (fL) ??? RDWCV 12.7 10.9 - 14.4 (%) ??? MPV 10.1 9.0 - 12.0 (fL) CARDIAC ENZYMES Component Value Range ? ? Troponin-T 0.07 (*) <=0.03 (ng/mL) ??? CK, Total 150 0 - 200 (unit/L) LIPID PANEL (FASTING) Component Value Range ? ? Chol, Total 186 <=199 (mg/dL) ? ? Triglycerides 412 (*) <=149 (mg/dL) ? ? HDL 25 (*) >=40 (mg/dL) ? ? LDL Cholesterol Not Calculated <=99 (mg/dL) ??? Chol/HDL Ratio 7.4 (ratio) HEMOGLOBIN A1C Component Value Range ??? Hemoglobin A1C 6.5 (*) 4.3 - 6.1 (%) ??? Est Avg Gluc 140 (mg/dL) ASPARTATE AMINOTRANSFERASE Component Value Range ??? AST 31 0 - 39 (unit/L) ALANINE AMINOTRANSFERASE Component Value Range ??? ALT 31 0 - 55 (unit/L) ALKALINE PHOSPHATASE Component Value Range ??? Alk Phos 53 40 - 120 (unit/L) DIFFERENTIAL, AUTOMATED Component Value Range ??? Neutrophils % 56.9 34.0 - 71.0 (%) ??? Neutr Abs (ANC) 3.65 1.50 - 6.30 (x10(3)/mcL) ??? Lymphocytes % 25.4 19.0 - 53.0 (%) ??? Lymphocytes Abs 1.6 1.0 - 3.6 (x10(3)/mcL) ??? Monocytes % 11.9 4.0 - 13.0 (%) ??? Monocyte Abs 0.8 0.2 - 1.0 (x10(3)/mcL) ??? Eosinophils % 4.7 0.0 - 7.0 (%) ??? Eosinophils Abs 0.3 0.0 - 0.5 (x10(3)/mcL) ??? Basophils % 0.8 0.0 - 2.0 (%) ??? Basophils Abs 0.0 0.0 - 0.2 (x10(3)/mcL) ??? Immature Gran % 0.30 0.00 - 0.66 (%) ??? Lisseth Gran Abs 0.02 0.00 - 0.05 (x10(3)/mcL) LDL CHOLESTEROL, DIRECT Component Value Range ? ? LDL Chol Direct 108 (*) <=99 (mg/dL) BMP W/FASTING GLUCOSE Component Value Range ??? Glucose Fasting 185 (*) 65 - 99 (mg/dL) ??? BUN 10 10 - 20 (mg/dL) ??? Creatinine 0.82 0.80 - 1.50 (mg/dL) ??? Sodium 139 135 - 145 (mmol/L) ??? Potassium 3.8 3.5 - 5.0 (mmol/L) ??? Chloride 105 98 - 107 (mmol/L) ??? CO2 23 22 - 31 (mmol/L) ??? Anion Gap 11 5 - 15 (mmol/L) ??? Calcium 9.0 8.5 - 10.5 (mg/dL) ? ? Estimated GFR >60 >=60 POCT GLUCOSE Component Value Range ??? POC Glucose 183 60 - 199 (mg/dL) Pertinent Radiographic/Diagnostic Results: ECG: NSR, normal ECG TTE (preliminary results): normal biventricular function, no hemodynamically significant valvular disease Discharge Medication Checklist: Aspirin Yes Clopidogrel/prasugrel Yes Edvin inhibitor/or ARB No: Not Indicated Beta Agatha Yes Lipid Lowering Yes Nitroglycerin Yes Assessment: Romeo Coelho is a 46 y.o. male PMH remarkable for tobacco use, HTN, DM, and CAD who presents for cardiac catheterization to further evaluate worsening angina and is s/p PCI with placement of JACINDA to mLAD and pOM1. Post- procedure course uncomplicated and patient appropriate for discharge home this am. Plan: - discharge home this am - DAPT: aspirin 81mg PO daily indefinitely, Ticagrelor 90mg PO BID for at least 1 year - Stop simvastatin (drug interaction with both diltiazem and ticagrelor), will start Crestor 10mg PO QHS - decrease Imdur to 30mg PO daily * Jacy Reid RN - 06/04/2012 8:06 AM EDT 0700 Resumed care of this patient see flow sheet for data. Denies CP or SOB The patient has met discharge criteria per [...] sign and symptoms have been reviewed with patient./c * Xin Appiah RN - 06/03/2012 8:25 PM EDT Activity Summary: By discharge, patient will be able to perform self care, walk 5-7 minutes and go up and down stairs without signs or symptoms of ischemia. Date /Initials Baseline Response Symptoms/Comments 06/03/12 // crha Activity HR 84 103 BP 123/77 129/93 O2 Sat 98%RA 98% RA Slight SOB ECG NSR Sinus Tach The patient denies chest pain, dizziness, diaphoresis during and after walk. documented in this encounter H&P Notes * Bryan Stephen MD - 06/03/2012 4:10 PM EDT Interventional Cardiology Post-PCI H&P Reason for Admission: s/p PCI History: 46 y/o male with PMH remarkable for tobacco use, HTN, DM, and CAD who presents for cardiac catheterization to further evaluate worsening angina. Cardiac catheterization demonstrated 2 hemodynamicallysignificant flow-limiting lesions (mLAD and pOM1) with +FFR. PCI was performed: pOM1 (3.0 x 18 mm Xience JACINDA) and mLAD (3.0 x 20 mm Promus Element JACINDA). This patient is admitted post PCI for IV hydration, pain management, access site management in the setting of anticoagulation, serial cardiac biomarker monitoring, telemetry monitoring, evaluation oftheir medical condition, and cardiac rehabilitation. PMH: Patient Active Problem List Diagnoses ??? Hx-TIA (transient ischemic attack) 2002, residual numbness in R hand and leg reported per pt, no mechanical limitations ??? Dyslipidemia ??? GERD (gastroesophageal reflux disease) ??? HTN (hypertension) ??? DM (diabetes mellitus) ??? Smoker ??? CAD (coronary artery disease), non-obstructive LHC 2009 post abnormal nuc stress +IW, EF normal Outpatient prescriptions marked as taking for the 06/03/12 encounter (Hospital Encounter) with KATHIE COTTER Medication Sig Dispense Refill ??? aspirin 325 mg EC tablet Take 650 mg by mouth daily. ??? isosorbide mononitrate (IMDUR) 60 mg 24 hr tablet Take 90 mg by mouth daily. One and a half tabs= 90MG daily ??? DILTiazem (DILACOR XR) 240 mg 24 [...] mg by mouth daily as needed. ??? simvastatin (ZOCOR) 40 mg tablet Take 40 mg by mouth nightly. ??? quinine 260 mg tablet Take 260 mg by mouth daily as needed. Allergies as of 05/31/2012 - Review Complete 05/28/2012 Allergen Reaction Noted ??? Thallium-201 05/28/2012 History Social History ??? Marital Status: Spouse Name: N/A Number of Children: N/A ??? Years of Education: N/A Occupational History ??? Not on file. Social History Main Topics ??? Smoking status: Current Everyday Smoker -- 0.5 packs/day Types: Cigarettes ??? Smokeless tobacco: Not on file Comment: declines smoking cesation info. Starting Chantix next week. ??? Alcohol Use: Yes occasional ??? Drug Use: No ??? Sexually Active: Other Topics Concern ??? Not on file Social History Narrative ??? No narrative on file Physical Exam Last value Range last 8 hrs Temperature Temp: 36.5 ??C (97.7 ??F) Temp: [36.5 ??C (97.7 ??F)] Heart Rate Heart Rate: 89 Heart Rate: [89] Blood Pressure BP: 111/76 mmHg BP: (111)/(76) Respiratory Rate Resp: 16 Resp: [16] SpO2 SpO2: 97 % SpO2: [97 %] General: well-appearing, NAD HEENT: NC/AT, anicteric sclerae, OP clear, MMM Neck: supple, no LAD Lungs: CTAB CV: RRR, S1, S2, no M/R/G Abd: obese, NABS, soft, NT, ND Ext: no C/C/E Assessment: 46 y/o male with PMH remarkable for tobacco use, HTN, DM, and CAD who presents for cardiac catheterization to further evaluate worsening angina and is s/p PCI with placement of JACINDA to mLAD and pOM1. Plan: - admit for overnight monitoring - telemetry, serial ECGs, cycle cardiac biomarkers - echo to evaluate LV function - DAPT - IVF - continue BB, statin - monitor access site - chest pain protocol - SSI - cardiac rehab consult - FULL CODE - anticipate discharge in am Case and plan discussed with Dr. Cotter * Remedios Burleson PA - 06/03/2012 1:04 PM EDT Cardiology Admission H&P Patient Name: Romeo Coelho Date of : 1965 Age: 46 y.o. Hospital Admit Date: 06/03/2012 Inpatient Attending: Dr Cotter PCP: SARITA CHEW MD Presenting Diagnosis/Chief Complaint: CP Active Problem List: Active Hospital Problems Diagnoses ??? Hx-TIA (transient ischemic attack) 2002, residual numbness in R hand and leg reported per pt, no mechanical limitations ??? HTN (hypertension) ??? Smoker ??? GERD (gastroesophageal reflux disease) ??? Dyslipidemia ??? DM (diabetes mellitus) ??? CAD (coronary artery disease), non-obstructive LHC 2009 post abnormal nuc stress +IW, EF normal Resolved Hospital Problems Diagnoses Date Resolved History of Present Illness: HPI Comments: [address] Leyva with non obstructive CAD diagnosed here after an abnormal nuclear stress test (OSH, +IW) in 2009. He has been medically managed since then and saw Dr Leyvain clinic in March with complaints of recurring CP/ ANDERSON. He can reliably reproduce the CP with 1 flight of stairs and the pain radiates to the jaw. The pain is relieved by 3 SL NTG tabs. His home dose of Imdur was increased in March. diven his previous abnormal stress test, he was referred directly for repeat LHC today. VS and labs are stable. He denies active bleeding issues or upcoming surgeries. He is working on smoking cessation and is down to 1/2 PPD. Past Medical History: ??? HTN (hypertension) ??? Smoker ??? GERD (gastroesophageal reflux disease) ??? Dyslipidemia ??? DM (diabetes mellitus) ??? CAD (coronary artery disease), non-obstructive LHC 2009 post abnormal nuc stress +IW, EF normal Arthritis (neck, shoulder) Fibromyalgia Surgical History/Problems: R shoulder arthroscopy Significant Family History: Father-, pre-mature CAD (age 46), [place], CABG Uncle +CAD Mother, DM, HTN. HLP Social History: History Social History ??? Marital Status: Spouse Name: N/A Number of Children: N/A ??? Years of Education: N/A Occupational History ??? Not on file. Social History Main Topics ??? Smoking status: Current Everyday Smoker -- 0.5 packs/day Types: Cigarettes ??? Smokeless tobacco: Not on file Comment: declines smoking cesation info. Starting Chantix next week. ??? Alcohol Use: Yes occasional ??? Drug Use: No ??? Sexually Active: Other Topics Concern ??? Not on file Social History Narrative ??? No narrative on file REVIEW OF SYSTEMS: Review of Systems Constitutional: Positive for fatigue. Negative for fever, chills and activity change. HENT: Positive for neck pain (chronic). Respiratory: Positive for shortness of breath (ANDERSON). Cardiovascular: Positive for chest pain and palpitations. Negative for leg swelling. Gastrointestinal: Negative for nausea, abdominal pain, diarrhea, constipation and blood in stool. Genitourinary: Negative for dysuria and hematuria. Musculoskeletal: Negative for gait problem. Skin: Negative for wound. Neurological: Positive for light-headedness (over the last week). Negative for dizziness and syncope. Psychiatric/Behavioral: Negative for confusion and agitation. +h/o anxiety and depression Medications: Prescriptions prior to admission Medication Sig Dispense Refill ??? aspirin 325 mg EC tablet Take 650 mg by mouth daily. ??? isosorbide mononitrate (IMDUR) 60 mg 24 hr tablet Take 90 mg by mouth daily. One and a half tabs= 90MG daily ??? DILTiazem (DILACOR XR) 240 mg 24 [...] mg by mouth daily as needed. ??? simvastatin (ZOCOR) 40 mg tablet Take 40 mg by mouth nightly. ??? quinine 260 mg tablet Take 260 mg by mouth daily as needed. ??? nitroGLYcerin (NITROSTAT) 0.[address] 0.4 mg under the tongue every 5 minutes as needed. Allergies: Allergies Allergen Reactions ??? Thallium-201 Severe cardiac event PHYSICAL EXAM: Last set of vital signs: BP 111/76 Pulse 89 Temp(Src) 36.5 ??C (97.7 ??F) (Temporal) Resp 16 Ht 179.1 cm (5' 10.5) Wt 111.131 kg (245 lb) BMI 34.66 kg/m2 SpO2 97% Physical Exam Constitutional: He is oriented to person, place, and time. He appears well- developed and well-nourished. No distress. HENT: Head: Normocephalic and atraumatic. Eyes: EOM are normal. No scleral icterus. Neck: No JVD present. Cardiovascular: Normal rate, regular [...] Normal range of motion. He exhibits no edema and no tenderness. Neurological: He is alert and oriented to person, place, and time. Skin: Skin is warm and dry. He is not diaphoretic. No erythema. Psychiatric: Judgment and thought content normal. Diagnostics: See scanned docs LABS: Recent Results (from the past 24 hour(s)) POCT GLUCOSE Component Value Range ??? POC Glucose 147 60 - 199 (mg/dL) ASSESSMENT/ PLAN: 1. CAD with recurrent CP consistent with worsening CAD. Seen by Dr [facility] in March; [facility] +[facility]DA [facility]. 2. HTN, stable, 3. HLP, recent restart of Zocor, follow up with Dr Leyva 4. Smoker, decreased from 2-3 PPD for many years 5. Obese 6. DM, metformin has been held. 7. H/O TIA 8. chronic simona arm pain related to arthritis and fibromyalgia Provider: LENORE HOFFMAN [id number] documented in this encounter Procedure Notes * Provider, Scanning - 06/04/2012 10:04 PM EDTAssociated Order(s): SCAN DOC: EAP SPECIALIST * Provider, Scanning - 06/03/2012 4:39 PM EDTAssociated Order(s): CARDIAC CATHETERIZATION documented in this encounter Miscellaneous Notes * Miscellaneous - Provider, Scanning - 06/04/2012 10:21 PM EDT * Miscellaneous - Provider, Sylvie - 06/04/2012 10:04 PM EDT * Consult Note - Zunilda Fletcher RN - 06/04/2012 9:26 AM EDT Romeo Coelho was seen today by Cardiac Rehabilitation for: ( no) An activity evaluation - Walked and did stairs with RN; giselle well ( yes) Education regarding CAD, cardiac risk factors, and managing angina Reviewed smoking cessation options.He has script for Chantix ; he and his are planning to start using it next week; staes he's cut back # cigs/day in meantime States he's made effort with changing to heart healthy diet Lipids values and treatment goals reviewed.Not at goal on current rx; to be changed to Crestor Given parameters for home exercise. He tries to walk a 2 mile loop 2 x week;enc him to aim for 5-7 days/wk ( yes) Participation to the outpatient cardiac rehabilitation program at [facility] was discussed. A referral will be sent to the program and the patient will be contacted within 2 weeks. * Discharge Summary - Bryan Stephen MD - 06/03/2012 4:54 PM EDT Inpatient Cardiology - Discharge Summary Patient Name: Romeo Coelho Patient Age: 46 y.o. Birthdate: 1965 Admit date: 06/03/2012 Discharge date : 06/04/2012 Attending Physician: Kathie Cotter MD Discharge Diagnoses (Hospital Problems) and Secondary Diagnoses (Chronic Problems): Active Hospital Problems Diagnoses ??? CAD (coronary artery disease), non-obstructive - LHC 2010 post abnormal nuc stress +IW, EF normal - Recurrent angina, CCS class III - Cardiac catheterization 06/03/2012: 2 vessel CAD (LAD and LCX), +FFR of both lesions s/p PCI to pOM1 (3.0 x 18 mm Xience JACINDA) and mLAD (3.0 x 20 mm Promus Element JACINDA) ??? HTN (hypertension) ??? Smoker ??? GERD (gastroesophageal reflux disease) ??? Dyslipidemia ??? DM (diabetes mellitus) Resolved Hospital Problems Diagnoses Date Resolved Active Non-Hospital Problems Diagnoses ??? Hx-TIA (transient ischemic attack) 2002, residual numbness in R hand and leg reported per pt, no mechanical limitations Operations/Major Procedures: Operations: CARDIAC CATHETERIZATION - Procedure: Coronary Angiography Studies: Echocardiogram 06/04/2012: 1. Left ventricular chamber size, wall thickness, global and segmental systolic function are within normal limits. Ejection fraction is estimated to be 60%. 2. Right ventricular chamber size, wall thickness, and systolic function are within normal limits. 3. The cardiac valves appear structurally and functionally normal. History of Presentation: 46 y/o male with PMH remarkable for tobacco use, HTN, DM, and CAD who presents for cardiac catheterization to further evaluate worsening angina. Cardiac catheterization demonstrated 2 hemodynamicallysignificant flow-limiting lesions (mLAD and pOM1) with +FFR. PCI was performed: pOM1 (3.0 x 18 mm Xience JACINDA) and mLAD (3.0 x 20 mm Promus Element JACINDA). Hospital Course: Patient admitted following cardiac catheterization for overnight monitoring and observation. The patient did well overnight without significant chest pain or arrhythmias on telemetry. The right femoral access site was evaluated and the femoral pulse was palpable with no evidence of hematoma, bruit,or vascular compromise to the right foot. Cardiac biomarkers and a repeat ECG were reviewed. An echocardiogram was obtained and demonstrated preserved biventricular function with no hemodynamically significant valvular disease. The patient ambulated with nursing without chest discomfort or exertional dyspnea. The patient met criteria for discharge home in stable condition. The patient was discharged on dual anti- platelet therapy: aspirin 81mg PO daily indefinitely and ticagrelor 90mg PO BID forat least 1 year. Simvastatin was discontinued because of potential drug interactions with diltiazemand ticagrelor; Crestor 10mg PO QHS was started in its place. Lastly, Imdur was decreased to 30mg PO daily and consideration can be given to discontinuation of this medication when seen in follow-up if patient has no recurrent angina. Important Studies and Lab Data: Labs: Lab Results Component Value Date WBC 6.4 06/04/2012 HGB 14.6 06/04/2012 HCT 42.7 06/04/2012 PLATELET 154 06/04/2012 Lab Results Component Value Date NA 139 06/04/2012 K 3.8 06/04/2012 CL 105 06/04/2012 CO2 23 06/04/2012 BUN 10 06/04/2012 CREATININE 0.82 06/04/2012 Recent Labs Basename 06/04/12 0445 06/03/12 1600 ??? CK 150 41 ? ? TROPONINT 0.07* <0.03 Lab Results Component Value Date CHLPL 186 06/04/2012 HDL 25* 06/04/2012 LDLCHOL Not Calculated 06/04/2012 TRIG 412* 06/04/2012 Lab Results Component Value Date HA1C 6.5* 06/04/2012 Pending Studies and Lab Data: none Discharge Conditions/Prognosis: Ambulatory without angina Discharge to: home Discharge Medications: Current Discharge Medication List New Meds Dose Details ticagrelor (BRILINTA) 90 mg Tab tablet 90 mg Take 1 tablet by mouth 2 times daily. Qty: 60 tablet Refills: 11 rosuvastatin (CRESTOR) 10 mg tablet 10 mg Take 1 tablet by mouth daily. Qty: 30 tablet Refills: 3 Continued medications with revised dosing Dose Details aspirin 81 mg EC tablet 81 mg Take 1 tablet by mouth daily. Qty: 30 tablet Refills: isosorbide mononitrate (IMDUR) 30 mg 24 hr tablet 30 mg Take 1 tablet by mouth daily. Qty: 30 tablet Refills: 1 Continued medications, unchanged Dose Details DILTiazem (DILACOR XR) 240 mg 24 hr capsule 240 mg Take 240 mg by mouth daily. Qty: Refills: metoprolol tartrate (LOPRESSOR) 25 mg tablet 12.5 mg Take 12.5 mg by mouth 2 times daily. Half tablet = 12.5m daily Qty: Refills: omeprazole (PRILOSEC) 20 mg capsule 20 mg Take 20 mg by mouth daily. Qty: Refills: magnesium oxide (MAG-OX) 400 mg tablet 400 mg Take 400 mg by mouth 2 times daily. Qty: Refills: DULoxetine (CYMBALTA) 60 mg capsule 60 mg Take 60 mg by mouth 2 times daily. Qty: Refills: acetaminophen (TYLENOL ARTHRITIS) 650 mg CR tablet 650 mg Take 650 mg by mouth every 8 hours as needed. Do not exceed 6 tabs in 24 hours Qty: Refills: cyclobenzaprine (FLEXERIL) 10 mg tablet 10 mg Take 10 mg by mouth daily as needed. Qty: Refills: quinine 260 mg tablet 260 mg Take 260 mg by mouth daily as needed. Qty: Refills: nitroGLYcerin (NITROSTAT) 0.4 mg SL tablet 0.[address] 0.4 mg under the tongue every 5 minutes as needed. Qty: Refills: Medications STOPPED Dose simvastatin (ZOCOR) 40 mg tablet 40 mg Updated Allergies/ADRs: Allergies Allergen Reactions ??? Thallium-201 Severe cardiac event Follow-up Recommendations for Providers: Continue Ticagrelor for at least 12 months, low dose aspirin indefinitely Instructions Given to Patient at Discharge: Provider Instructions Call your doctor if: Chest pain, dyspnea, pain or swelling in legs occurs. If you have non-emergent questions between now and the time of your follow up appointments: During 8am-5pm Thursday through Thursday call [phone] to speak with a nurse in the cardiology clinic All other times call [phone] and ask to speak to the crib clerk recreational resort manager. Return to work: One week Driving: No driving for 48 hours after catheterization. Follow up Appointments: PCP: SARITA CHEW MD , Call for appointment in 1-2 weeks. Sand Control Worker: Dr Leyva, You should be seen in 3-4 weeks for follow up. Please call for appointment General Instructions None Future Appointments and Orders Future Appointments: Provider: Department: Dept Phone: Center: 06/04/2012 4:45 PM Echo Inpatient Add-On [facility] Non-Inv Card Lab [phone] None Provider Contact Information: Dr. Kathie Stephen Section of Cardiology [facility] [phone] Discharge References/Attachments: Discharge References/Attachments None Signed: Bryan Stephen MD DATE: 06/04/2012 * Miscellaneous - Provider, Scanning - 06/03/2012 11:02 AM EDT documented in this encounter Plan of Treatment Not on file documented as of this encounter Procedures Procedure Name Priority Date/Time Associated Diagnosis Comments CARDIAC CATHETERIZATION Routine 06/07/20 2:15 PM EDT EAP SPECIALIST SCAN 06/04/2012 10:04 PM EDT ECHOCARDIOGRAM TRANSTHORACIC Routine 06/04/2012 8:57 AM EDT CAD (coronary artery disease), non-obstructive POCT GLUCOSE Routine 06/04/2012 7:06 AM EDT EKG 12-LEAD Routine 06/04/2012 6:07 AM EDT BMP W/FASTING GLUCOSE Routine 06/04/2012 6:05 AM EDT DIFFERENTIAL, AUTOMATED Routine 06/04/20 4:45 AM EDT CARDIAC ENZYMES ([facility]) Routine 06/04/2012 4:45 AM EDT CBC (WITH DIFF) Routine 06/04/2012 4:45 AM EDT ALANINE AMINOTRANSFERASE Routine 012 4:45 AM EDT ASPARTATE AMINOTRANSFERASE Routine 06/04/2012 4:45 AM EDT ALKALINE PHOSPHATASE Routine 06/04/2012 4:45 AM EDT LDL CHOLESTEROL, DIRECT Routine 06/04/20 4:45 AM EDT HEMOGLOBIN A1C Routine 06/04/2012 4:45 AM EDT LIPID PANEL (REFLEX DIRECT LDL) Routine 06/04/2012 4:45 AM EDT POCT GLUCOSE Routine 06/03/2012 9:31 PM EDT POCT GLUCOSE Routine 06/03/2012 6:10 PM EDT EKG 12-LEAD Routine 06/03/2012 4:38 PM EDT CAD (coronary artery disease), non-obstructive [place]IAC [place] [place] STAT 06/03/2012 4:00 PM EDT CARDIAC CATHETERIZATION 06/03/20 12 2:02 PM EDT CP POCT GLUCOSE Routine 06/03/2012 11:11 AM EDT documented in this encounter Results * Cardiac Catheterization (06/07/2012 2:15 PM EDT) Anatomical Region Laterality Modality Other Narrative 06/03/2012 4:39 PM EDT Procedure Note Provider, Scanning - 06/03/2012 4:39 PM EDT Kathie Cotter MD CARDIAC CATH ORDERAB LES * SCAN DOC: EAP SPECIALIST (06/04/2012 10:04 PM EDT) Anatomical Region Laterality Modality Other Narrative 06/06/2012 2:36 AM EDT Procedure Note Provider, Scanning - 06/04/2012 10:04 PM EDT Scanning Provider MEDIA MGR SCAN EXT O RDR/RSLT * Echo Transthoracic (Complete) (06/04/2012 8:57 AM EDT) [facility] Signature EF 60 [employer] FX SYSTEM Anatomical Region Laterality Modality Other 06/04/2012 Narrative 06/04/2012 9:13 AM EDT Procedure: ? Transthoracic Echocardiogram Patient: ? COELHO ROMEO A ?(Age): 1965(46) Med Rec#: ?[id number] ? Sex: ?M ? [place] [place] Ht / Wt: ??176(cm)/122(kg) Pt. Loc: ? Adult Floor ?BSA: ?2.44 Study Date: ?06/04/2012 ? Pt. Type: Inpatient Tape: ? Referring: Kathie Cotter Pig Farm Manager: Khoi Gaines [facility] Pig Farm Manager 2: Mason Duron ([id number]) Diagnosis: ??Chest pain (786.50) CPT Code(s): ??Echo Full (48082), ??Spectral Doppler (48890), ??Color Doppler (61002), ??Definity (41382TH), Indication(s): ??Chest Pain Rhythm: HR ?BP 78 ?120/79 ?? SUMMARY: 1. Left ventricular chamber size, wall thickness, global and segmental systolic function are within normal limits. Ejection fraction is estimated to be 60%. 2. Right ventricular chamber size, wall thickness, and systolic function are within normal limits. 3. The cardiac valves appear structurally and functionally normal. 4. See remainder of report for additional findings. FINDINGS: Left Ventricle ?Left ventricular chamber size, wall thickness, global and segmental systolic function are within normal limits. Ejection fraction is estimated to be 60%. ?There is no evidence of LVOT obstruction. ?No ventricular septal defect is visualized. ?There are no left ventricular segmental wall motion abnormalities. ?Doppler assessment is consistent with normal left sided filling pressure. Left Atrium ?The left atrium is normal in size. ?No atrial septal defect is visualized. Right Ventricle ?Right ventricular chamber size, wall thickness, and systolic function are within normal limits. ?No pulmonary hypertension is noted. ?The estimated pulmonary artery systolic pressure is 28 mmHg. Right Atrium ?The right atrium is normal in size. Aortic Valve ?The aortic valve is trileaflet. The leaflets are thin with normal excursion. There is no aortic stenosis or regurgitation present. Mitral Valve ?The mitral valve appears normal in structure and function. ?There is no evidence of mitral valve leaflet prolapse. ?There is trace mitral regurgitation present. Tricuspid Valve ?The tricuspid valve appears normal in structure and function. ?There is trace tricuspid regurgitation present. Pulmonic Valve ?The pulmonic valve appears normal in structure and function. Pericardium ?The pericardium appears normal and there is no evidence of a pericardial effusion. Aorta ?The aortic root is normal in size. ?The ascending aorta is normal in size. ?There is no evidence of coarctation of the aorta. Pulmonary Artery ?The main pulmonary artery appears normal. Venous ?The inferior vena cava is poorly visualized. Misc ?See remainder of report for additional findings. ?Two-dimensional echo, spectral Doppler and color Doppler performed. ?Definity contrast (one 1.5 ml vial)was used to enhance endocardial definition. Excess contrast was discarded. Wall Motion: Segment Name ?Rest ? Base-Anteroseptal ?? Normal ? Base-Anterior ? Normal ? Base-Anterolateral ??Normal ? Base-Posterolateral Normal ? Base-Inferior ? Normal ? Base-Inferoseptal ?? Normal ? Mid-Anteroseptal ?Normal ? Mid-Anterior ?Normal ? Mid-Anterolateral ?? Normal ? Mid-Posterolateral ??Normal ? Mid-Inferior ?Normal ? Mid-Inferoseptal ?Normal ? Bruno-Septal ? Normal ? Bruno-Anterior ? Normal ? Bruno-Lateral ?Normal ? Bruno-Inferior ? Normal ? Bruno-Tip ?Normal ? Chambers ?Value ?Units (Range) ? LV EF Est ? 60 ? % (55 to 80) ? LVIDd 2D ?5.2 ?cm ? LA area ? 20 ? cm2 (<21) ? RA area ? 14 ? cm2 (<18) ? Ao root ? 3.4 ?cm (2.1 to 3.6) ? Asc Ao ?3.3 ?cm (2 to 3.5) ? Mitral Valve ?Value ?Units (Range) ? E peak ?0.6 ?m/sec ? E/A ratio ? 1.2 ?ratio ? MVDT ?249 ?msec ? E1 ?0.12 ? m/sec ? E/E1 ?5 ?ratio ? Tricuspid/Pulmonic Valves ?Value ?Units (Range) ? TR peak ori ? 2.5 ?m/sec ? RAP ? 3 ?mmHg ? RVSP/PASP ? 28 ? mmHg ? This report has been electronically signed by: Christos Buchanan M.D. ? 06/04/2012 09:12:51 Images reviewed and interpretation verified [facility] Cardiac [facility]trasound [facility] Procedure Note Christos Buchanan MD - 06/04/2012 Procedure: Transthoracic Echocardiogram Patient: LAQUITA Pop (Age): 1965(46) Med Rec#: [id number] Sex: M [place] [facility] [place] Ht / Wt: 176(cm)/122(kg) Pt. Loc: Adult Floor BSA: 2.44 Study Date: 06/04/2012 Pt. Type: Inpatient Tape: Referring: Kathie Cotter Pig Farm Manager: Khoi Gaines [facility] Pig Farm Manager 2: Mason Duron ([id number]) Diagnosis: Chest pain (786.50) CPT Code(s): Echo Full (33973), Spectral Doppler (10292), Color Doppler (00365), Definity (58157IJ), Indication(s): Chest Pain Rhythm: HR BP 78 120/79 SUMMARY: 1. Left ventricular chamber size, wall thickness, global and segmental systolic function are within normal limits. Ejection fraction is estimated to be 60%. 2. Right ventricular chamber size, wall thickness, and systolic function are within normal limits. 3. The cardiac valves appear structurally and functionally normal. 4. See remainder of report for additional findings. FINDINGS: Left Ventricle Left ventricular chamber size, wall thickness, global and segmental systolic function are within normal limits. Ejection fraction is estimated to be 60%. There is no evidence of LVOT obstruction. No ventricular septal defect is visualized. There are no left ventricular segmental wall motion abnormalities. Doppler assessment is consistent with normal left sided filling pressure. Left Atrium The left atrium is normal in size. No atrial septal defect is visualized. Right Ventricle Right ventricular chamber size, wall thickness, and systolic function are within normal limits. No pulmonary hypertension is noted. The estimated pulmonary artery systolic pressure is 28 mmHg. Right Atrium The right atrium is normal in size. Aortic Valve The aortic valve is trileaflet. The leaflets are thin with normal excursion. There is no aortic stenosis or regurgitation present. Mitral Valve The mitral valve appears normal in structure and function. There is no evidence of mitral valve leaflet prolapse. There is trace mitral regurgitation present. Tricuspid Valve The tricuspid valve appears normal in structure and function. There is trace tricuspid regurgitation present. Pulmonic Valve The pulmonic valve appears normal in structure and function. Pericardium The pericardium appears normal and there is no evidence of a pericardial effusion. Aorta The aortic root is normal in size. The ascending aorta is normal in size. There is no evidence of coarctation of the aorta. Pulmonary Artery The main pulmonary artery appears normal. Venous The inferior vena cava is poorly visualized. Misc See remainder of report for additional findings. Two-dimensional echo, spectral Doppler and color Doppler performed. Definity contrast (one 1.5 ml vial)was used to enhance endocardial definition. Excess contrast was discarded. Wall Motion: Segment Name Rest Base-Anteroseptal Normal Base-Anterior Normal Base-Anterolateral Normal Base-Posterolateral Normal Base-Inferior Normal Base-Inferoseptal Normal Mid-Anteroseptal Normal Mid-Anterior Normal Mid-Anterolateral Normal Mid-Posterolateral Normal Mid-Inferior Normal Mid-Inferoseptal Normal Bruno-Septal Normal Bruno-Anterior Normal Bruno-Lateral Normal Bruno-Inferior Normal Bruno-Tip Normal Chambers Value Units (Range) LV EF Est 60 % (55 to 80) LVIDd 2D 5.2 cm LA area 20 cm2 (<21) RA area 14 cm2 (<18) Ao root 3.4 cm (2.1 to 3.6) Asc Ao 3.3 cm (2 to 3.5) Mitral Valve Value Units (Range) E peak 0.6 m/sec E/A ratio 1.2 ratio MVDT 249 msec E1 0.12 m/sec E/E1 5 ratio Tricuspid/Pulmonic Valves Value Units (Range) TR peak ori 2.5 m/sec RAP 3 mmHg RVSP/PASP 28 mmHg This report has been electronically signed by: Christos Buchanan M.D. 06/04/2012 09:12:51 Images reviewed and interpretation verified [facility] Kathie Cotter MD ECHO ORDERABLES * POCT GLUCOSE (06/04/2012 7:06 AM EDT) [facility] Glucose, POC 183 60 - 199 mg/dL [facility] Comment: Supplemental ranges: <110 mg/dL before meals <200 mg/dL all other times of the day Blood specimen (specimen) 06/04/2012 7:06 AM EDT 06/04/2012 7:06 AM EDT Kathie Cotter MD POINT OF CARE TEST O RDERABLES Performing Organization Address [facility] [[email or web address]] de Phone Number [facility] * EKG 12-LEAD (06/04/2012 6:07 AM EDT) [facility] Ventricular rate 77 BPM MUSE SYSTEM Atrial Rate 77 BPM MUSE SYSTEM P-R Interval 150 ms MUSE SYSTEM QRS Duration 92 ms MUSE SYSTEM Q-T Interval 372 ms MUSE SYSTEM QTC Calculated (Bezet) 420 ms MUSE SYSTEM Calculated P [place] 30 degrees MUSE SYSTEM Calculated R [place] 37 degrees MUSE SYSTEM Calculated T Rap[place] 30 degrees MUSE SYSTEM INTERPRETATION Normal sinus rhythm Normal ECG When compared with ECG of 03-JUN-2012 16:38, No significant change was found Confirmed by MD Mirtha, Cali ([id number]) on 06/04/2012 1:38:26 PM MUSE SYSTEM 06/04/2012 6:07 AM EDT 06/04/2012 1:38 PM EDT Unknown ECG ORDERABLES Performing Organization Address [facility] Co de Phone Number MUSE SYSTEM * (ABNORMAL) BMP w/fasting Glucose (06/04/2012 6:05 AM EDT) [facility] Glucose Fasting 185(H) 65 - 99 mg/dL [facility] Comment: [...] of Diabetes Mellitus, Position Statement from the [place] [employer]. ??Diabetes Care, Volume 33, Supplement 1, Aug 2009 Blood Urea Nitrogen 10 10 - 20 mg/dL [facility] Creatinine 0.82 0.80 - 1.50 mg/dL [facility] Comment: Please note that the pediatric reference intervals supplied above were not validated [place] [facility] [place] Results from pediatric patients should be interpreted in conjunction to the patient's age, height and muscle mass. Sodium 139 135 - 145 mmol/L [facility] Potassium 3.8 3.5 - 5.0 mmol/L [facility] Comment: [...] - 31 mmol/L [facility] Anion Gap 11 5 - 15 mmol/L [facility] Calcium 9.0 8.5 - 10.5 mg/dL [facility] Est [...] J Am Soc Nephrol;6:1963-72. Blood specimen (specimen) 06/04/2012 6:05 AM EDT 06/04/2012 6:06 AM EDT Narrative Resulting Agency Comment Spec In Lab Kathie Cotter MD CHEMISTRY ORDERABLES [facility] * (ABNORMAL) LDL CHOLESTEROL, DIRECT (06/04/2012 4:45 AM EDT) LDL Cholesterol, Direct 108(H) <=99 mg/dL [facility] Comment: The National Cholesterol Education Program (NCEP) has set the following guidelines for LDL Cholesterol: Reference range: ?? Optimal: ?<100 mg/dL ?? Near Optimal/Above Optimal: ?? 100-129 mg/dL ?? Borderline high: ?130-159 mg/dL ?? High: ? 160-189 mg/dL ?? Very high: ?>xn=987 mg/dL RACHEL 2001: [id number]):[id number] Blood specimen (specimen) 06/04/2012 4:45 AM EDT 06/04/2012 4:57 AM EDT Narrative Resulting Agency Comment Spec In Lab Kathie Cotter MD CHEMISTRY ORDERABLES [facility] * DIFFERENTIAL, AUTOMATED (06/04/2012 4:45 AM EDT) Neutrophil % 56.9 34.0 - 71.0 % [facility] Neutrophil Absolute 3.65 1.50 - 6.30 x10(3)/mcL [facility] Lymph % 25.4 19.0 - 53.0 % [facility] Lymphocytes Abs 1.6 1.0 - 3.6 x10(3)/mcL [facility] Monocyte % 11.9 4.0 - 13.0 % [facility] Monocyte Abs 0.8 0.2 - 1.0 x10(3)/mcL [facility] Eos % 4.7 0.0 - 7.0 % [facility] Eosinophils Abs 0.3 0.0 - 0.5 x10(3)/mcL [facility] Basophil % 0.8 0.0 - 2.0 % [facility] Baso Absolute 0.0 0.0 - 0.2 x10(3)/mcL [facility] Immature Gran % 0.30 0.00 - 0.66 % [facility] Comment: Immature granulocytes(IG's)percentage and absolute count will include metamyelocytes, myelocytes, and promyelocytes. Blood smears from CBCs yielding IG's will be scanned manually for concordance. If this scan disagrees with the automated IG or if promyelocytes are noted, a manual differential will be performed. Immature Gran Absolute 0.02 0.00 - 0.05 x10(3)/mcL [facility] Blood specimen (specimen) 06/04/2012 4:45 AM EDT 06/04/2012 4:55 AM EDT Kathie Cotter MD HEMATOLOGY ORDERABLE S Performing Organization Address [facility] [[email or web address]] de Phone Number [facility] * Alkaline Phosphatase (06/04/2012 4:45 AM EDT) Alkaline Phosphatase 53 40 - 120 unit/L [facility] Blood specimen (specimen) 06/04/2012 4:45 AM EDT 06/04/2012 4:55 AM EDT Narrative Resulting Agency Comment Spec In Lab Kathie Cotter MD CHEMISTRY ORDERABLES Performing Organization Address [facility] [[email or web address]] de Phone Number [facility] * Alanine Aminotransferase (06/04/2012 4:45 AM EDT) Alanine Aminotransferase 31 0 - 55 unit/L [facility] Blood specimen (specimen) 06/04/2012 4:45 AM EDT 06/04/2012 4:55 AM EDT Narrative Resulting Agency Comment Spec In Lab Kathie Cotter MD CHEMISTRY ORDERABLES Performing Organization Address [facility] [[email or web address]] de Phone Number [facility] * Aspartate Aminotransferase (06/04/2012 4:45 AM EDT) Aspartate Aminotransferase 31 0 - 39 unit/L [facility] Blood specimen (specimen) 06/04/2012 4:45 AM EDT 06/04/2012 4:55 AM EDT Narrative Resulting Agency Comment Spec In Lab Kathie Cotter MD CHEMISTRY ORDERABLES Performing Organization Address [facility] Co de Phone Number [facility] * (ABNORMAL) Hemoglobin A1c (06/04/2012 4:45 AM EDT) Hemoglobin A1c 6.5(H) 4.3 - 6.1 % [facility] Estimated Average Glucose 140 mg/dL [facility] Comment: eAG equivalents for HbA1c percentages: HbA1c(%) ?eAG(mg/dL) 6.0 ?126 6.5 ?140 7.0 ?154 7.5 ?169 8.0 ?183 8.5 ?197 9.0 ?212 9.5 ?226 10.0 ? 240 Limitations: The eAG calculation has not been validated on women, individuals below 18 years old and above 70 years old, and individuals with hemoglobinopathies. Additional resources are available on the ADA website: ??http://professional.diabetes.org/glucosecalculator.aspx Reference: Ashok PIMENTEL, Abdulkadir Tenorio, Jamie R, et al. ??Translating the A1C assay into estimated average glucose values. ??Diabetes Care 2008:31(8):8569-7320. Blood specimen (specimen) 06/04/2012 4:45 AM EDT 06/04/2012 4:55 AM EDT Narrative Resulting Agency Comment Spec In Lab Kathie Cotter MD CHEMISTRY ORDERABLES Performing Organization Address [facility] Co de Phone Number [facility] * (ABNORMAL) Lipid panel (fasting) (06/04/2012 4:45 AM EDT) [facility] Cholesterol, Total 186 <=199 mg/dL [facility] Comment: Recommendations of the NCEP Adult Treatment Panel for the following risk cutoff thresholds for the [place] population: Desirable: <200 mg/dL Borderline High: 200-239 mg/dL High: > or = 240 mg/dL Triglyceride 412(H) <=149 mg/dL [facility] Comment: Reference Range: Normal triglycerides: ??<150 mg/dL Borderline high: ??150-199 mg/dL High: ??200-499 mg/dL Very high: ??>xk=607 mg/dL RACHEL 2001; 285(19):5165-7683 HDL Cholesterol 25(L) >=40 mg/dL [facility] Comment: Reference range: ??Low HDL: ?? < 40 mg/dL ??Normal: ?40-60 mg/dL ??Desirable: > 60 mg/dL RACHEL 2001; 285(19):8335-5936 LDL Cholesterol Not Calculated <=99 mg/dL [facility] Comment: Since a calculated LDL value is not valid for triglycerides greater than 400 mg/dl, a direct LDL determination is performed instead. Reference range: ?? Optimal: ?<100 mg/dL ?? Near Optimal/Above Optimal: ?? 100-129 mg/dL ?? Borderline high: ?130-159 mg/dL ?? High: ? 160-189 mg/dL ?? Very high: ?>db=418 mg/dL RACHEL 2001: 285(19):9598-0643 Cholesterol/HDL Ratio 7.4 ratio [facility] Comment: A Cholesterol to HDL ratio below 4:1 is desirable. ??Studies suggest that increased CAD risk occurs at ratios above 5 for females and above 6 for men. ? [place] Heart Association ??(http://www.americanheart.org) ? Pallavi Int Med, 1994; 121:641 ? AM J Med, 1998; 105(1A):48S Blood specimen (specimen) 06/04/2012 4:45 AM EDT 06/04/2012 4:55 AM EDT Narrative Resulting Agency Comment Spec In Lab Kathie Cotter MD CHEMISTRY ORDERABLES Performing Organization Address [facility] [[email or web address]] de Phone Number [facility] * (ABNORMAL) Cardiac Enzymes (06/04/2012 4:45 AM EDT) Troponin-T 0.07(H) <=0.03 ng/mL [facility] Comment: 0.03 ng/mL: Represents the 99th percentile upper reference limit for normals. >0.03 ng/mL: Elevated cardiac troponin T level indicative of myocardial damage. Diagnosis of acute, evolving or recent MN requires a typical rise and gradual fall [...] consensus document of the Joint Society of Cardiology/[place] College of Cardiology Committee for the redefinition of myocardial infarction. Journal of the [place] College of Cardiology 2000; 36: 959-969] Creatine Kinase 150 0 - 200 unit/L [facility] Comment:result rechecked-[facility] Blood specimen (specimen) 06/04/2012 4:45 AM EDT 06/04/2012 4:55 AM EDT Narrative Resulting Agency Comment Spec In Lab Kathie Cotter MD CHEMISTRY ORDERABLES Performing Organization Address [facility] Co de Phone Number [facility] * CBC (with Diff) (06/04/2012 4:45 AM EDT) White Blood Cell 6.4 4.0 - 10.0 x10(3)/mcL [facility] Red Blood Cell 4.78 4.63 - 6.08 x10(6)/mcL [facility] Hemoglobin 14.6 13.7 - 17.5 gm/dL [facility] Hematocrit 42.7 40.0 - 51.0 % [facility] Mean Cell Volume 89.3 79.0 - 92.0 fL [facility] Mean Cell Hemoglobin 30.5 25.6 - 32.2 pg [facility] Mean Cell Hemoglobin Concentration 34.2 32.0 - 36.5 gm/dL [facility] Platelet 154 145 - 370 x10(3)/mcL [facility] RDW Standard Deviation 41.0 35.0 - 46.0 fL [facility] RDW coefficient of variation 12.7 10.9 - 14.4 % [facility] Mean Platelet Volume 10.1 9.0 - 12.0 fL [facility] Blood specimen (specimen) 06/04/2012 4:45 AM EDT 06/04/2012 4:55 AM EDT Narrative Resulting Agency Comment Spec In Lab Kathie Cotter MD HEMATOLOGY ORDERABLE S Performing Organization Address [facility] Co de Phone Number [facility] * POCT GLUCOSE (06/03/2012 9:31 PM EDT) Glucose, POC 163 60 - 199 mg/dL [facility] Comment: Supplemental ranges: <110 mg/dL before meals <200 mg/dL all other times of the day Blood specimen (specimen) 06/03/2012 9:31 PM EDT 06/03/2012 9:31 PM EDT Kathie Cotter MD POINT OF CARE TEST O RDERABLES Performing Organization Address [facility] Co de Phone Number [facility] * POCT GLUCOSE (06/03/2012 6:10 PM EDT) Glucose, POC 97 60 - 199 mg/dL [facility] Comment: Supplemental ranges: <110 mg/dL before meals <200 mg/dL all other times of the day Blood specimen (specimen) 06/03/2012 6:10 PM EDT 06/03/2012 6:10 PM EDT Kathie Cotter MD POINT OF CARE TEST O RDERABLES Performing Organization Address [facility] Co de Phone Number [facility] * EKG 12 Lead (06/03/2012 4:38 PM EDT) Ventricular rate 74 BPM MUSE SYSTEM Atrial Rate 74 BPM MUSE SYSTEM P-R Interval 150 ms MUSE SYSTEM QRS Duration 92 ms MUSE SYSTEM Q-T Interval 372 ms MUSE SYSTEM QTC Calculated (Bezet) 412 ms MUSE SYSTEM Calculated P [place] 46 degrees MUSE SYSTEM Calculated R [place] 25 degrees MUSE SYSTEM Calculated T [place] 29 degrees MUSE SYSTEM INTERPRETATION Normal sinus rhythm Normal ECG When compared with ECG of 18-JAN-2010 07:42, No significant change was found Confirmed by MD Shannon Robert ([id number]) on 06/04/2012 7:52:23 AM MUSE SYSTEM 06/03/2012 4:38 PM EDT 06/04/2012 7:52 AM EDT Kahtie Cotter MD ECG ORDERABLES Performing Organization Address [email or web address] de Phone Number MUSE SYSTEM * Cardiac Enzymes (06/03/2012 4:00 PM EDT) [facility] Troponin-T <0.03 <=0.03 ng/mL [facility] Comment: 0.03 ng/mL: Represents the 99th percentile upper reference limit for normals. >0.03 ng/mL: Elevated cardiac troponin T level indicative of myocardial damage. Diagnosis of acute, evolving or recent [place] requires a typical rise and gradual fall [...] consensus document of the Joint Society of Cardiology/[place] College of Cardiology Committee for the redefinition of myocardial infarction. Journal of the [place] College of Cardiology 2000; 36: 959-969] Creatine Kinase 41 0 - 200 unit/L [facility] Blood specimen (specimen) 06/03/2012 4:00 PM EDT 06/03/2012 4:12 PM EDT Narrative Resulting Agency Comment Spec In Lab Kathie Cotter MD CHEMISTRY ORDERABLES Performing Organization Address City/[facility]/ZIP Co de Phone Number [facility] * POCT GLUCOSE (06/03/2012 11:11 AM EDT) Glucose, POC 147 60 - 199 mg/dL [facility] Comment: Supplemental ranges: <110 mg/dL before meals <200 mg/dL all other times of the day Blood specimen (specimen) 06/03/2012 11:11 AM EDT 06/03/2012 11:11 AM EDT Kathie Cotter MD POINT OF CARE TEST O RDERABLES Performing Organization Address [facility] Co de Phone Number [facility] documented in this encounter Visit Diagnoses Diagnosis CAD (coronary artery disease), non-obstructive- Primary Coronary atherosclerosis of unspecified type of vessel, [place] or graft S/P coronary artery stent placement Postsurgical percutaneous transluminal coronary angioplasty status HTN (hypertension) Unspecified essential hypertension Smoker Tobacco use disorder GERD (gastroesophageal reflux disease) Esophageal reflux Dyslipidemia Other and unspecified hyperlipidemia DM (diabetes mellitus) Type II or unspecified type diabetes mellitus without mention of complication, not stated as uncontrolled documented in this encounter Administered Medications Inactive Administered Medications - up to 3 most recent administrations Medication Order MAR Action Action Date Dose Rate Site aspirin EC tablet 81 mg 81 mg, Oral, DAILY, First dose on 06/04/12 at 0900, Until Discontinued, Routine Given 06/04/2012 8:38 AM EDT 81 mg diaZEPam (VALIUM) tablet 5 mg 5 mg, Oral, ONCE, 1 dose, On Martha 06/03/12 at 1100, Cath (Day of Procedure), Routine Given 06/03/2012 1:23 PM EDT 5 mg DILTiazem (DILACOR XR) XR capsule 240 mg 240 mg, Oral, DAILY, First dose on Thu06/04/12 at 0900, Until Discontinued, Routine Given 06/04/2012 8:38 AM EDT 240 mg diphenhydrAMINE (BENADRYL) capsule 25 mg 25 mg, Oral, ONCE, 1 dose, On Thu06/03/12 at 1100, Cath (Day of Procedure), Routine Given 06/03/2012 1:24 PM EDT 25 mg DULoxetine (CYMBALTA) capsule 60 mg 60 mg, Oral, 2 TIMES DAILY, First dose on Thu06/03/12 at 2100, Until Discontinued, Routine Given 06/04/2012 8:38 AM EDT 60 mg Given 06/03/2012 7:39 PM EDT 60 mg insulin aspart (NOVOLOG) PEN injection 1-4 Units 1-4 Units, Subcutaneous, 4 TIMES DAILY BEFORE MEALS & NIGHTLY, First dose on Thu06/03/12 at 2100, Until Discontinued, CORRECTION BOLUS Sensitive to insulin [...] new basal insulin orders , Routine Given 06/04/2012 7:30 AM EDT 2 Units Given 06/03/2012 9:00 PM EDT 2 Units isosorbide mononitrate (IMDUR) CR tablet 90 mg 90 mg, Oral, DAILY, First dose on Thu06/04/12 at 0900, Until Discontinued, Routine Given 06/04/2012 8:38 AM EDT 90 mg metoprolol (LOPRESSOR) tablet 12.5 mg 12.5 mg, Oral, 2 TIMES DAILY, First dose on Thu06/03/12 at 2100, Until Discontinued, Routine Given 06/04/2012 8:38 AM EDT 12.5 mg Given 06/03/2012 7:40 PM EDT 12.5 mg perflutren lipid microspheres (DEFINITY) injection 0.5 mL 0.5 mL, Intravenous, IMG ONCE PRN, 1 dose, Starting on Thu06/04/12 at 0857, Until Thu06/04/12 at 0858, Other, for enhancement of sub-optimal echo images, Echo Lab (Intra-Procedure), Routine Given 06/04/2012 8:58 AM EDT 0.5 mLs simvastatin (ZOCOR) tablet 40 mg 40 mg, Oral, NIGHTLY, First dose on Thu06/03/12 at 2100, Until Discontinued Given 06/03/2012 7:41 PM EDT 40 mg sodium chloride 0.9% infusion 100 mL/hr, Intravenous, CONTINUOUS, Starting on Martha 06/03/12 at 1645, Until Thu06/04/12 at 0244 Rate/Dose Verify 06/04/2012 12:00 AM EDT 100 mL/hr 100 mL/hr Rate/Dose Verify 06/03/2012 5:48 PM EDT 100 mL/hr 100 mL/ hr New Bag 06/03/2012 4:35 PM EDT 100 mL/hr 100 mL/hr ticagrelor (BRILINTA) tablet 90 mg 90 mg, Oral, 2 TIMES DAILY, First dose on Thu06/04/12 at 0600, Until Discontinued, After initial loading dose of aspirin (usually 325 mg), use ticagrelor with daily maintenance dose of aspirin of 81 mg, Routine, After the initial loading dose of aspirin (usually 325 mg), use ticagrelor with a daily maintenance dose of aspirin 81 mg. Is this patient on 81 mg of aspirin? Yes Given 06/04/2012 6:00 AM EDT 90 mg documented in this encounter Active and Recently Administered Medications Times are shown in EDT. Scheduled Medication Order 06/02/2012 06/03/2012 06/04/2012 aspirin EC tablet 81 mg 81 mg, Oral, DAILY, First dose on Thu06/04/12 at 0900, Until Discontinued, Routine 0838 (Given - Provid er: Jacy Reid RN) diaZEPam (VALIUM) tablet 5 mg (COMPLETED) 5 mg, Oral, ONCE, 1 dose, On Martha 06/03/12 at 1100, Cath (Day of Procedure), Routine 1100 (Not Given - Provider: Xin Appiah RN - Reason: Medication Discontinued)1323 (Given - Provider: Dalia Sanches RN) DILTiazem (DILACOR XR) XR capsule 240 mg (CANCELED) 240 mg, Oral, DAILY, First dose on Thu06/04/12 at 0900, Until Discontinued, Routine 1815 (Not Given - Provider: Xin Appiah RN - Reason: Patient/family refused - Comment: Pt took this AM) 0838 (Given - Provider: Jacy Reid RN) diphenhydrAMINE (BENADRYL) capsule 25 mg (COMPLETED) 25 mg, Oral, ONCE, 1 dose, On Thu06/03/12 at 1100, Cath (Day of Procedure), Routine 1100 (Not Given - Provider: Xin Appiah RN - Reason: Medication Discontinued)1324 (Given - Provider: Dalia Sanches RN) DULoxetine (CYMBALTA) capsule 60 mg (CANCELED) 60 mg, Oral, 2 TIMES DAILY, First dose on Martha 06/03/12 at 2100, Until Discontinued, Routine 193 (Given - Provider: Xin Appiah RN) 0838 (Given - Provider: Jacy Reid RN) insulin aspart (NOVOLOG) PEN injection 1-4 Units (CANCELED) 1-4 Units, Subcutaneous, 4 TIMES DAILY BEFORE MEALS & NIGHTLY, First dose on Thu06/03/12 at 2100, Until Discontinued, CORRECTION BOLUS Sensitive to insulin [...] for new basal insulin orders , Routine 2100 (Given - Provider: Xin Appiah RN) 0730 (Given - Provider: Jacy Reid RN) isosorbide mononitrate (IMDUR) CR tablet 90 mg (CANCELED) 90 mg, Oral, DAILY, First dose on Thu06/04/12 at 0900, Until Discontinued, Routine 181 (Not Given - Provider: Xin Appiah RN - Reason: Patient/family refused - Comment: Pt took this AM) 0838 (Given - Provider: Jacy Reid RN) metoprolol (LOPRESSOR) tablet 12.5 mg (CANCELED) 12.5 mg, Oral, 2 TIMES DAILY, First dose on Martha 06/03/12 at 2100, Until Discontinued, Routine 194 (Given - Provider: Xin Appiah RN) 0838 (Given - Provider: Jacy Reid RN) simvastatin (ZOCOR) tablet 40 mg (CANCELED) 40 mg, Oral, NIGHTLY, First dose on Martha 06/03/12 at 2100, Until Discontinued 1941 (Given - Provider: Xin Appiah RN) ticagrelor (BRILINTA) tablet 90 mg 90 mg, Oral, 2 TIMES DAILY, First dose on Thu06/04/12 at 0600, Until Discontinued, After initial loading dose of aspirin (usually 325 mg), use ticagrelor with daily maintenance dose of aspirin of 81 mg, Routine, After the initial loading dose of aspirin (usually 325 mg), use ticagrelor with a daily maintenance dose of aspirin 81 mg. Is this patient on 81 mg of aspirin? Yes 0600 (Given - Provid er: Niesha Dacosta RN) Continuous Medication Order 06/02/2012 06/03/2012 06/04/2012 sodium chloride 0.9% infusion () 100 mL/hr, Intravenous, CONTINUOUS, Starting on Martha 06/03/12 at 1645, Until Thu06/04/12 at 0244 1635 (New Bag - Provider: Keeley Kyle RN)1748 (Rate/Dose Verify - Provider: Xin Appiah RN) 0000 (Rate/Dose Verify - Provider: Niesha Dacosta RN)0301 (Stopped - Provider: Niesha Dacosta RN) PRN Medication Order 06/02/2012 06/03/2012 06/04/2012 adenosine 90 mg in sodium chloride 0.9% 90 mL infusion (PROPERTY INSPECTOR) (CANCELED) Intravenous, CONTINUOUS PRN, Starting on Martha 06/03/12 at 1511, Until Martha 06/03/12 at 1734, Cath (Intra-Procedure), Routine 1511 (New Bag - Provider: Dustin Carlton Jr.)1521 (Stopped - Provider: Tawanda Agarwal RN) bivalirudin (ANGIOMAX) 250 mg in sodium chloride 0.9% 50 mL infusion (PROPERTY INSPECTOR) (CANCELED) Intravenous, CONTINUOUS PRN, Starting on Martha 06/03/12 at 1509, Until Martha 06/03/12 at 1734, Cath (Intra-Procedure), Routine 1509 (New Bag - Provider: Dustin Carlton Jr.)1550 (Stopped - Provider: Tawanda Agarwal RN) bivalirudin (ANGIOMAX) injection (CANCELED) ONCE PRN, Starting on Martha 06/03/12 at 1509, Until Martha 10 at 1734, Intra-Operative (Intra-Procedure), Routine 1509 (Given - Provider: Josef Mcneil) fentaNYL 50mcg/mL injection (CANCELED) ONCE PRN, Starting on Martha 06/03/12 at 1430, Until Martha 10 at 1734, Pain, Intra-Operative (Intra-Procedure), Routine 1430 (Given - Provider: Dustin Carlton Jr.) fentaNYL 50mcg/mL injection (CANCELED) ONCE PRN, Starting on Martha 06/03/12 at 1535, Until Martha 06/03/12 at 1734, Pain, Cath (Intra-Procedure), Routine 1526 (Given - Provider: Dustin Carlton Jr.)1535 (Given - Provider: Dustin Carlton Jr.) heparin (porcine) injection (CANCELED) ONCE PRN, Starting on Martha 06/03/12 at 1435, Until Martha 06/03/12 at 1734, Cath (Intra-Procedure), Routine 1435 (Given - Provider: Josef Mcneil) lidocaine (XYLOCAINE) 10 mg/mL (1 %) injection (CANCELED) ONCE PRN, Starting on Martha 06/03/12 at 1416, Until Martha 06/03/12 at 1734, Cath (Intra-Procedure), Routine 1416 (Given - Provider: Josef Mcneil) midazolam (VERSED) injection (CANCELED) Intravenous, ONCE PRN, Starting on Martha 10 at 1432, Until Martha 1012 at 1734, Sleep, Cath (Intra-Procedure), Routine 1432 (Given - Provider: Dustin Carlton Jr.)1526 (Given - Provider: Dustin Carlton Jr.) nitroGLYCerin 100 mcg/mL intracoronary dilution (CANCELED) ONCE PRN, Starting on Martha 06/03/12 at 1543, Until Martha 06/03/12 at 1734, Cath (Intra-Procedure), Routine 1543 (Given - Provider: Kathie Cotter MD) perflutren lipid microspheres (DEFINITY) injection 0.5 mL (COMPLETED) 0.5 mL, Intravenous, IMG ONCE PRN, 1 dose, Starting on Thu06/04/12 at 0857, Until Thu06/04/12 at 0858, Other, for enhancement of sub-optimal echo images, Echo Lab (Intra-Procedure), Routine 0858 (Given - Provid er: Khoi Gaines) sodium chloride 0.9% infusion (CANCELED) Intravenous, CONTINUOUS PRN, Starting on Martha 06/03/12 at 1438, Until Martha 06/03/12 at 1734, Cath (Intra-Procedure) 1438 (New Bag - Provider: Josef Mcneil)1450 (Stopped - Provider: Tawanda Agarwal RN) sodium chloride 0.9% infusion (CANCELED) Intravenous, CONTINUOUS PRN, Starting on Martha 06/03/12 at 1528, Until Martha 06/03/12 at 1734, Cath (Intra-Procedure) 1528 (New Bag - Provider: Dustin Carlton Jr.)1555 (Stopped - Provider: Tawanda Agarwal RN) ticagrelor (BRILINTA) tablet (CANCELED) Oral, ONCE PRN, Starting on Martha 06/03/12 at 1539, Until Martha 06/03/12 at 1734, After initial loading dose of aspirin (usually 325 mg), use ticagrelor with daily maintenance dose of aspirin of 81 mg, Cath (Intra-Procedure), Routine 1539 (Given - Provider: Kathie Cotter MD) documented in this encounter Care Teams Band Saw Operator Relationship Specialty Start Date End Date Sarita Chew MD [address] [place] [address] PCP - General 07/16/10 documented as of this encounter
--- OUTSIDE RECORDS SUMMARY | 2024-04-30 13:43 | XMS_ITS | Encounter Summary ---
Author Organization [facility] [place] [address] Care Team Providers Care Merchandising Assistant Name Role Phone Coni Lim MD Primary Care Provider [phone] Encounter Details Date Type Department Care Team (Late st Contact Info) Description 07/25/2015 Telephone Cardiology at [address] [phone] Yessy Pugh Social History Tobacco Use Types [...] Miscellaneous Notes * Telephone Encounter - Yessy Roach - 07/25/2015 7:46 AM EST Patient completed his two year phone follow up for the ABSORB study. In answering the angina questionnaire the patient complained of daily chest pain and taking nitro more than 3 times a week. I havemade Aldair Patel, the irb compliance coordinator aware. documented in this encounter Plan of Treatment Not on file documented as of this encounter Visit Diagnoses Not on filedocumented in this encounter Care Teams Merchandising Assistant Relationship Specialty Start Date End Date Coni Lim MD [address] [place] [address] PCP - General 07/16/10 documented as of this encounter
--- OUTSIDE RECORDS SUMMARY | 2024-04-30 13:43 | XMS_ITS | Encounter Summary ---
Author Organization [facility] [place] [address] Care Team Providers Care Health And Safety Trainer Name Role Phone Coni Lim MD Primary Care Provider [phone] Encounter Details Date Type Department Care Team (Late st Contact Info) Description 07/26/2015 Telephone Cardiology at [address] [phone] Destin Patel, RN Social History Tobacco Use [...] Telephone Encounter - Destin Patel, RN - 07/26/2015 12:09 PM EST I spoke with Amparo Roach regarding her conversation with Mr. Coe in follow up to the ABSORB trial. More specifically, he has been experiencing chest pain everyday and using NTG at least 3 times per week. I called the number listed for Mr. Coe approx [phone] today and left a message, asking him to return the phone call. Dr. Kim Horvath is aware as the blinded market investigator. I will follow up with him should it be necessary. documented in this encounter Plan of Treatment Not on file documented as of this encounter Visit Diagnoses Not on filedocumented in this encounter Care Teams Health And Safety Trainer Relationship Specialty Start Date End Date Coni Lim MD [address] [place] [address] PCP - General 07/16/10 documented as of this encounter
--- OUTSIDE RECORDS SUMMARY | 2024-04-30 13:43 | XMS_ITS | Encounter Summary ---
Author Organization [facility] Address [place] [address] Care Team Providers Care Coat Repair Inspector Name Role Phone Coni Lim MD Primary Care Provider [phone] Encounter Details Date Type Department Care Team (Late st Contact Info) Description 06/14/2012 Orders Only Cardiology at [address] [phone] Bryan Iverson MD [facility] CARDIOLOGY [place] [phone] Social History Tobacco Use Types Packs/Day Years [...] Comments FILM LIBRARY STORAGE ONLY CT HEAD Routine 06/14/2012 1:26 PM EDT documented in this encounter Results * FILM LIBRARY- STORAGE ONLY CT HEAD (06/14/2012 1:26 PM EDT) 06/14/2012 1:26 PM EDT Narrative [facility][NOTE 3] - 03/13/2014 6:59 PM EDT This is a non-reportable exam. Procedure Note Shukri Mckee - 03/13/2014 This is a non-reportable exam. Bryan Iverson MD IM FILM LIBRARY ORD ERABLES RAD [address] [place] [address] documented in this encounter Visit Diagnoses Not on filedocumented in this encounter Care Teams Coat Repair Inspector Relationship Specialty Start Date End Date Coni Lim MD [address] [place] [address] PCP - General 07/16/10 documented as of this encounter
--- OUTSIDE RECORDS SUMMARY | 2024-04-30 13:44 | XMS_ITS | Encounter Summary ---
Author Organization [facility] Address [address] [place] [address] Care Team Providers Care Environmental Emergencies Planner Name Role Phone Coni Lim MD Primary Care Provider [phone] Encounter Details Date Type Department Care Team (Late st Contact Info) Description 09/30/2021 Lab Requisition [facility] Pathology & Laboratory Medicine - [facility] [address] [place] [address] Yoon Martinez MD [address] [place] [address] [address] [place], [place] [address] Encounter for screening for malignant neoplasm of colon Social History Tobacco Use Types Packs/Day Years Used Date Smoking Tobacco: Every Day Cigarettes Comments:pt reports difficul ty quitting with being smoker Alcohol Use Standard Drinks/Week Comments Not Asked 0 (1 standard drink = 0.6 oz pur e alcohol) Sex and Gender Information Value Date Recorded Sex Assigned at Not on file Gender Identity Male 04/08/2023 10:55 EDT Sexual Orientation Not on file documented as of this encounter Functional Status Functional Status Response Date of Assess ment Are you deaf or do you have serious difficulty h earing? No 03/15/2015 Are you blind or do you have serious difficulty seeing, even when wearing glasses? No 03/15/2015 Do you have serious difficul ty walking or climbing stairs? (5 years old or older) No 03/15/2015 Do you have difficulty dress ing or bathing? (5 years old or older) No 03/15/2015 Because of a physical, menta l, or emotional condition, do you have difficulty doing errands alone such as visiting a doctor's office or shopping? (15 years old or older) No 03/15/2015 Cognitive Status Response Date of Assessm ent Because of a physical, menta l, or emotional condition, do you have serious difficulty concentrating, remembering, or making decisions? (5 years old or older) No 03/15/2015 documented as of this encounter Plan of Treatment Not on file documented as of this encounter Procedures Procedure Name Priority Date/Time Associated Diagnosis Comments SURGICAL PATHOLOGY Today 09/30/2021 12 :30 EST Encounter for screening for malignant neoplasm of colon documented in this encounter Results * SURGICAL PATHOLOGY (09/30/2021 12:30 EST) Note to Patient The following pathology results have been interpreted by your pathologist and may be available to you before your health provider has had the opportunity to review them. Please allow time for your provider to receive these results and explore management options, if applicable. 10/01/2021 17:48 [facility] Final Diagnosis A. COLON, ASCENDING, POLYPS X5, BIOPSY: - Fragments of tubular adenomas. B. COLON, DESCENDING, POLYP, BIOPSY: - Hyperplastic polyp. C. COLON, SIGMOID, POLYPS X3, BIOPSY: - Hyperplastic polyps. D. RECTUM, POLYP, BIOPSY: - Tubular adenoma. 10/01/2021 17:48 [facility] Attestation By the signature below, the attending physician certifies that they have 1) personally conducted a gross and/or microscopic examination of the described specimen(s), and/or personally interpreted the results of laboratory testing of the described specimen(s), and 2) personally rendered or confirmed the above diagnosis. 10/01/2021 17:48 [facility] at 1748 Clinical History Colon CA screening, family Hx colon CA 10/01/2021 17:48 [facility] Gross Description A. Received in formalin labelled with proper patient identification (initials M, J) and ascending colon polyp x5 are 9 fragments of walters soft tissue (ranging from 0.2 cm to 0.4 cm in greatest dimension). The specimen is entirely submitted in A1-A2. B. Received in formalin labelled with proper patient identification (initials M, J) and descending colon polyp is a single fragment of walters soft tissue (0.2 x 0.2 x 0.2 cm). The specimen is entirely submitted in B1. C. Received in formalin labelled with proper patient identification (initials M, J) and sigmoid polyp x3 are 2 fragments of walters soft tissue (0.3 x 0.2 x 0.2 cm and 0.6 x 0.2 x 0.2 cm). The specimen is entirely submitted in C1. NOTE TO PATHOLOGIST: For part C, the requisition lists the specimen as x3, however only 2 pieces of tissue are identified in the specimen container, per the cutting room. D. Received in formalin labelled with proper patient identification (initials M, J) and rectal polyp are 2 fragments of walters soft tissue (each averaging 0.3 x 0.2 x 0.2 cm). The specimen is entirely submitted in D1. LENORE MACIAS(ASCP) 10/01/2021 7:36 10/01/2021 17:48 EST [facility] Performing Lab [facility] 10/01/2021 17:48 EST [facility] Scanned Images 10/01/2021 17:48 EST [facility] Tissue SPECIMEN FROM RECTUM / Unknown 09/30/2021 12:30 EST 09/30/2021 18:36 EST Tissue specimen (specimen) DESCENDING COLON STRUCTURE / Unknown 09/30/2021 12:30 EST 09/30/2021 18:36 EST Tissue specimen (specimen) SIGMOID COLON STRUCTURE / Unknown 09/30/2021 12:30 EST 09/30/2021 18:36 EST Tissue specimen (specimen) SPECIMEN FROM RECTUM / Unknown 09/30/2021 12:30 EST 09/30/2021 18:36 EST Yoon Martinez MD PATHOLOGY ORDERA AIRAM [facility] [address] [place] [address] documented in this encounter Visit Diagnoses Diagnosis Encounter for screening for malignant neoplasm of colon Special screening for malignant neoplasms, colon documented in this encounter Care Teams Environmental Emergencies Planner Relationship Specialty Start Date End Date Coni Lim MD [address] [place] [address] PCP - General 12/17/11 documented as of this encounter
--- OUTSIDE RECORDS SUMMARY | 2024-04-30 13:44 | XMS_ITS | Encounter Summary ---
Author Organization [facility] Address [address] [place] [address] Care Team Providers Care Safety Companion Name Role Phone Coni Lim MD Primary Care Provider [phone] Reason for Visit * Auth/Cert (Routine) Specialty Diagnoses / Procedures Referred By Contsigifredo t Referred To Contact Diagnoses Encephalopathy Seizures Referral ID Status Reason Start Date Expiration Date Visits Re quested Visits Authorized [id number] 1 1 Encounter Details Date Type Department Care Team (Late st Contact Info) Description 04/07/2023 23:45 EDT - 04/09/2023 13:45 EDT Hospital Encounter [place] [address] General Medicine Telemetry Unit [address] [place], [place] [id number] Gillian Randolph MD [address] [facility], Level [address] [place] [phone] Park Coe MD MPH [address] [phone] Acute respiratory failure with hypoxia (HCC-CMS); Cerebrovascular accident (CVA), unspecified mechanism (HCC-CMS); Encephalopathy; Syncope, unspecified syncope type Discharge Disposition: Home or Self Care Social History Tobacco Use Types Packs/Day Years Used Date Smoking Tobacco: Former Cigarettes Tobacco Cessation:Counseling Given: Not Answered Comments:pt reports difficulty quitting with being smoker Alcohol Use Standard Drinks/Week Comments Not Asked 0 (1 standard drink = 0.6 oz pur e alcohol) Sex and Gender Information Value Date Recorded Sex Assigned at Not on file Gender Identity Male 04/08/2023 10:55 EDT Sexual Orientation Not on file documented as of this encounter Last Filed Vital Signs Vital Sign Reading Time Taken Comments Blood Pressure 126/73 04/09/2023 0507 EDT Pulse 76 04/09/2023 0507 EDT Temperature 36.6 ??C (97.9 ??F) 04/09/2023 0507 EDT Respiratory Rate 17 04/09/2023 0032 EDT Oxygen Saturation 97% 04/09/2023 0507 EDT Inhaled Oxygen Concentration - - Weight 108.1 kg (238 lb 6.4 oz) 04/09/2023 0825 EDT Height 167.6 cm (5' 6) 04/08/2023 1158 EDT Body Mass Index 38.48 04/08/2023 1158 EDT documented in this encounter Functional Status Functional Status Response Date of Assess ment Are you deaf or do you have serious difficulty h earing? No 03/15/2015 Are you blind or do you have serious difficulty seeing, even when wearing glasses? No 03/15/2015 Do you have serious difficul ty walking or climbing stairs? (5 years old or older) No 04/08/2023 Do you have difficulty dress ing or bathing? (5 years old or older) No 04/08/2023 Because of a physical, menta l, or [...] No 03/15/2015 documented as of this encounter Discharge Summaries * Park Coe MD MPH - 04/09/2023 0803 EDT HOSPITAL MEDICINE DISCHARGE SUMMARY Primary Care Provider: Coni Lim Attending Physician: Park Coe MD * Admit Date: 04/08/23 Discharge Date: 04/09/23 Disposition (location): Home Condition at Discharge: Improved Reason for Admission (chief complaint): Syncope Principal/Final Diagnosis: Encephalopathy Additional Problems Managed in the Hospital: Active Hospital Problems Diagnosis Date Noted ??? *Encephalopathy 04/08/2023 ??? Acute respiratory failure with hypoxia ([facility]) ([facility]) 04/08/2023 ??? Idiopathic hypotension 04/08/2023 ??? Anxiety and depression 02/22/2014 ??? Unstable angina ([facility]) ([facility]) 02/15/2014 ??? CAD (coronary artery disease) 02/15/2014 ??? CVA (cerebral vascular accident) ([facility]) 03/15/2015 Resolved Hospital Problems No resolved problems to display. Transition of care: [facility] Transition of Care report automatically routed to PCP office on discharge.Additional handoff communication performed via: Fax Clinical Issues Needing Follow-up 1. Pertinent medication changes: - Continue LOGISTICS/SHIPPER medications without changes 2. Recommended follow-up tests/procedures needed: - Routine follow-up with PCP 3. Anticoagulation on discharge: No Recent Labs 04/08/23 0122 INR 1.1 4. Changes to goals of care at time of discharge (if applicable): N/A Hospital Course: Romeo Coelho is a 57 y/o man with a history of CAD s/p PCI and prior CVA, who was admitted to the MICU from [facility] after being found down and unresponsive. His found him down outside after he went out to mow the lawn. At [facility] he was found to have a GCS of 3 and was intubated for airway protection. He underwent CT head and CT angio head/neck out of concern for midbrain or pontine stroke, both of which were unrevealing. He was transferred to the [facility] MICU for further management of his depressed mental status. Upon arrival to the MICU, patient briefly required pressor support but was subsequently weaned. He was successfully extubated the morning after his arrival and was otherwise hemodynamically stable. Per patient's report, he recounts becoming overheated and thirsty, making it likely he may have had asyncopal event in the setting of dehydration. Of note, his Utox was positive for benzos, fentanyl, and THC (pt reports only using THC), but it is unclear if benzos or fentanyl were given at OSH priorto transfer. Following extubation, patient was alert and orientated with no confusion or change in mental statusfrom baseline. His supplemental oxygen was weaned quickly. EKG and TTE were unrevealing. He was transferred to the general medicine team on 04/08. While on the floor, he was monitored on telemetry, which remained unremarkable. He remained clinically stable and was discharged to home on 04/09/23. Relevant Imaging/Procedures Performed: TTE 04/08/23: ??? Left??Ventricle: The left ventricular cavity was normal in size. Left ventricular systolic function was normal with an ejection fraction of 50-55%. The left ventricular estimated ejection fraction by biplane [employer]od[employer] method was 53%. Left ventricular diastolic parameters were normal. Global longitudinal strain was normal (-18.1%). ??? Right??Ventricle: The right ventricular cavity was normal in size. Right ventricular systolic function was normal. Normal tricuspid annular plane systolic excursion (TAPSE) >1.7 cm. Normal RV S' >9.5cm/s. ??? Valves: Normal valvular function. XR Feeding Tube Placement 04/08/23: Findings: Portable AP view centered over the lower chest and upper abdomen demonstrates that the transesophageal sump tube side port and terminus project over the gastric fundus. Paucity of bowel gas is a nonspecific finding. No abnormally dilated loops of bowel. Chest radiograph reported separately. Partially imaged excreted contrast in the collecting system. Cholecystectomy clips. This is neither a complete view of the chest nor of the abdomen. If either view is needed, formal films are recommended. Results Pending at Discharge: Test results still pending from this admission None Keeley Quiroz PA-C 04/09/2023 10:53 ATTENDING ATTESTATION: Date of service: 04/09/2023 I interviewed and examined the patient; reviewed interval labs, events, and notes; and discussed the case with the medicine house staff team. I agree with and edited the findings and plan of care as documented in the discharge summary above. I reviewed the plan of care and discharge instructions with the patient. Total unit time I spent in the care of the patient today: 35 Minutes Park Coe MD MPH [facility] Inpatient Service 04/09/2023 14:33 documented in this encounter Medications at Time of Discharge Medication Sig Dispensed Refills Start Date End Date aspirin 81 mg capsule Take 81 mg by mouth daily. buPROPion (WELLBUTRIN SR) 150 mg SR tablet Take 1 Tablet by mouth 2 times daily. cyclobenzaprine (FLEXERIL) 10 mg tablet Take 1 Tablet by mouth at bedtime as needed for Muscle Spasms. DULoxetine (CYMBALTA) 60 mg capsule Take 1 Capsule by mouth 2 times daily. gabapentin (NEURONTIN) 800 mg tablet Take 1 Tablet by mouth 3 times daily. 800 mg TID isosorbide MONOnitrate (IMDUR) 30 mg CR tablet Take 1 Tablet by mouth daily. metFORMIN (GLUCOPHAGE) 1,000 mg tablet Take 1 Tablet by mouth 2 times daily. metoprolol SUCCinate (TOPROL-XL) 200 mg tablet Take 1 Tablet by mouth daily. nitroGLYCERIN (NITROSTAT) 0.[address] 1 Tablet under the tongue every 5 minutes as needed for Chest Pain. pantoprazole (PROTONIX) 40 mg tablet Take 1 Tablet by mouth 2 times daily. pramipexole (MIRAPEX) 0.5 mg tablet Take 1 Tablet by mouth SEE ADMIN INSTRUCTIONS. Patient takes one 0.5 mg tablet in the morning and two 0.5 mg tablets at night pregabalin (LYRICA) 50 mg capsule Take 1 Capsule by mouth 3 times daily. Daily Max: 150 mg ranolazine (RANEXA) 500 mg SR tablet Take 1 Tab by mouth 2 times daily. 60 Tab 3 02/23/2014 rosuvastatin (CRESTOR) 20 mg tablet Take 1 Tab by mouth daily. 30 Tab 3 02/16/2014 topiramate (TOPAMAX) 25 mg tablet Take 1 Tablet by mouth SEE ADMIN INSTRUCTIONS. One 25 mg tablet in the morning and two 25 mg tablets at night documented as of this encounter Discharge Disposition Disposition Code Departure Means Destination Comment s Home or Self [facility]itent[facility] documented in this encounter Progress Notes * Karan Estrada - 04/09/2023 1332 EDT Romeo Coelho 1965 Encephalopathy Chart review completed and discussed the plan of care with the direct care RN and/or primary care team. Primary Insurance: [employer] Medicare Secondary Insurance: Patient with no apparent Case Management needs at this time. No housing, transportation, insurance,resources concerns identified at this time. Supports in place to achieve a safe post-hospital transition. No identified barriers to accessing necessary care and/or follow-up after discharge. minute clerk for basic traffic/[employer] will continue to follow patient's progress and remain available if situation changes for coordination of care, psychosocial support and/or discharge planning. No needs identified - Pt had already requested discharge ride when CM arrived to assess. KARAN ESTRADA 04/09/2023 13:33 * Aiyana Almonte RN - 04/09/2023 1312 EDT Nursing Discharge Note D: Patient noted with discharge orders to: Home. A: Reviewed discharge instructions and prescriptions with Patient IV d/c'd. Belongings collected and sent home with patient. R: Patient verbalized understanding of discharge instructions and denied further questions. AIYANA ALMONTE RN 04/09/2023 13:12 * Star Hassan MD - 04/08/2023 1529 EDT Transfer Note 57yo M w/hx CAD (PCI), hx CVA, DM2, HLD. Presented to [facility] after being found down by . Was seen ~30min prior while mowing the lawn. In ED pt intubated for airway protection. Transfer to [facility] MICU. Was able to quickly extubated and is stable on 2L NC. Etiology of episode unclear, ?cardiac, ?neurologic. Imaging unrevealing. TTE this am unremarkable. Seemed to improve w/IVFs, possibly dehydrated while working outside. Stable for transfer to medicine. Star Hassan MD Internal Medicine Hospitalist 04/08/2023 15:34 * Michelle Ny RT - 04/08/2023 1047 EDT Respiratory Extubation Note Pre-procedure - The extubation order and correct patient verified. The procedure was coordinated with the RN. Procedure - The patient's oral pharynx and ETT were suctioned for minimul oral secretions. A cuff leak was present. The ventilator placed in standby. The patient was extubated and placed on O2 Flow Rate (L/min): 2 l/min O2 Device: Nasal cannula. No stridor was noted and the patient was able to produce voice. Comments: Pt take PRN Albuterol MDI rarely, no other chronic respiratory medication. Pt does not use supplemental 02 or NIV at home. RT NATAN 04/08/23 * Leigha Welsh RN - 04/08/2023 0548 EDT FOUR EYES SKIN ASSESSMENT Four Eyes skin assessment was performed on admission to the unit by Leigha Welsh RN and Gwen Hernandes. Patient has the following devices at the time of this assessment: ETT, BP cuff, Peripheral IV, O2 sat probe and Boucher. Device related pressure injury present? No All skin intact verified by: Leigha Welsh RN. Last Anibal Score: 14 Instructions: ??? Add LDA for any identified wounds ??? Add Ferris image for any suspected PI or non surgical wounds ??? Order wound consult if suspected PI identified ? ? If Anibal is < or = to 16, initiate Pressure Injury Prevention Bundle ([id number]). 04/08/2023 5:48 * Martha Randall RT - 04/07/2023 2350 EDT Respiratory Progress Note Indications for Respiratory therapy: Mechanical Ventilation Data Vitals: Heart Rate: 78 BPM, Resp: 16, SpO2: 97 % FIO2/O2 Device: , , O2 Device: Intubated, FIO2 %: 30 % RT Orders: Continuous RT Orders (From admission, onward) Start Ordered 04/08/23 0500 Mechanical Ventilation-Invasive [[id number]] RT Continuous Discontinue References: ARDS/ALI Protocol Post Op Protocol Weaning Protocol ETCO2 Protocol Question Answer Comment Mode: Assist Control Control Type: Volume Control VT (mL) 510 Set Rate (f/min) 16 Peep (cm H2O) 5 Autoflow: Yes Protocols: Weaning ETCO2 Protocol: Yes 04/08/23 0023 Active Orders Action/Events Respiratory events; Pt transferred from [facility], received report from Transport Team. Pt placed on ventwith above settings with FiO2 30%. Pt BBS are clear/diminished. @0323: Patient qualifies for RT driven extubation protocol, as discussed with physician. Will proceed with SBT in the morning. This patient did meet daily criteria for Spontaneous breathing trial. Patient did not tolerate weaning trial due to ETCO2 increase/decrease > 10 mmhg pt tidal volumesare decreased and pt is having apneic episodes. Placed back on previous vent setting due to apnea and decreased tidal volumes. SBT settings of 5/5/30%. @0345:Pt placed back on previous vent settings. RT EDILIA 04/08/23 documented in this encounter H&P Notes * Gillian Randolph MD - 04/08/2023 0157 EDT MEDICAL ICU HISTORY AND PHYSICAL Date: 04/08/2023 Hospital Day # 1 Patient was admitted from: Outside Hospital: [facility]. [facility] Assessment The patient is a 57 y.o. male with a history of CAD s/p prior PCI and prior CVA who is admitted to the MICU for a primary problem of depressed GCS requiring ventilatory support and intermittent low dose pressor support. Cardiac and stroke work-ups have been negative. Etiology of altered mental status is cryptogenic at this time. He is clinically improving with conservative treatment. Plan for neuro consult and spontaneous breathing trial with possible extubation. Plan by system Pulmonary #Intubated for airway protection - Weaned from propofol and pressors - Minimal vent settings - SBT, plan to extubate Brief SBT with initial apnea, obtaining VBG and will likely repeat SBT this AM Cardiac #History of CAD - TTE Need formal med rec in AM if possible ( not sure of all meds) Neurologic #Depressed GCS Concern for midbrain or pontine CVA. CT head and CT angio head/neck negative. Improving neuro exam,now following commands. Depressed GCS could also be caused by seizure. - Consult neuro in AM S/p TIA in 2014 treated with TPA with noted complete resolution of prior symptoms May follow with neurologist in [facility]? #History of CVA - as above Renal #Hypovolemia Briefly on pressors, possibly due to propofol. Good response to fluids. Collapsible IVC. Good UOP. - Titrate fluids to urine output Infectious Disease #No acute concerns Heme/Onc #No acute concerns Endocrine TSH normal. Hypothyroidism considered as possible etiology for altered mental status. TSH 0.61 suggesting normal thyroid function. Gastrointestinal #No acute concerns - Tube feeds if not extubated by early AM Musculoskeletal/Dermatology #No acute concerns Prophylaxis - Famotidine for GI prophylaxis - Lovenox, 40 mg subQ Lines/Tubs - Intubated as above, boucher, PIVs Code Status Code Status Information Code Status Full Code Modified Resuscitation Specifics: When the patient has NO PULSE:: Full Code / CPR Who Made the Decision?: Default/Not Discussed Subjective Chief Complaint Altered mental status HPI The patient is a 57 y.o. male with a history of CAD and prior CVA [facility] being [facility] and un[facility]. His found him down outside after he went out to mow the [place]. At [facility] he was found to have a GCS of 3 and was intubated for airway protection. He underwent CT head and CT angio head/neck out of concern for midbrain or pontine stroke, both of which were unrevealing. He was transferred to the [facility] MICU for further management of his depressed mental status. Collateral obtained from patient's : Patient was in normal state of health. Went out to [employer] and then mow the [place]. Was seen maybe30 min prior. Then she found him down and minimally responsive. She states was recently being changed from gabapentin to pregabalin. She was not sure of his entire med list but knows he takes and aspirin. Reportedly sees cardiology regularly. Not aware if he has ever had a seizure. States that he does see a neurologist. No etoh x years. Smokes MJ 3x daily on average. No other known drug use. No known supplements. Only recent travel to [facility]. No known possible toxic ingestions. No recent fevers or sick contacts or other things she can thinks of. Earlier in the day stated his hand hurt when he picked up his cup of coffee, ROS Unable to perform due to depressed GCS. Objective Vital Signs Patient Vitals for the past 24 hrs: BP Temp Resp SpO2 Height 04/08/23 0100 117/80 36.8 ??C (98.2 ??F) 16 99 % -- 04/08/23 0015 -- -- 16 98 % -- 04/08/23 0000 111/72 -- 16 99 % -- 04/07/23 2355 -- -- 16 99 % 167 cm (65.75) Physical Exam General appearance: Intubated, responds to verbal stimuli and follows commands Head: Normocephalic, without obvious abnormality, atraumatic Eyes: negative findings: conjunctivae and sclerae normal and pupils equal, round, reactive to lightand accomodation Lungs: clear to auscultation bilaterally Heart: regular rate and rhythm, S1, S2 normal, no murmur, click, rub or gallop Abdomen: soft, non-tender; bowel sounds normal; no masses, no organomegaly Neurologic: Mental status: responds to verbal stimuli and follows commands Cranial nerves: II: pupils equal, round, reactive to light and accommodation Extremities: extremities warm, atraumatic, no cyanosis or edema positive pulses bilat I have independently reviewed the following data Relevant imaging XR Chest Portable Line Placement Result Date 04/08/23 IMPRESSION Endotracheal tube terminates in the lower mid trachea, correlate with positioning of chin and consider retraction. Nasogastric tube separately reported. XR Feeding Tube Placement Result Date 04/08/23 Findings: Portable AP view centered over the lower chest and upper abdomen demonstrates that the transesophageal sump tube side port and terminus project over the gastric fundus. Cardiology EKG 04/08/23 Normal sinus rhythm, rate 81, normal axis, normal MA interval, normal QTc Brandon Denny, MS4 Signed, ANTONIO MAJANO 04/08/2023 Medical Intensive Care . Attending attestation statement: I saw and examined the patient with the resident and agree with the findings and plans as documented, and as amended in blue. Clinical Condition: Romeo Coelho is a critically ill 57 y.o. male. Over the past 24 hours, therehas been a high probability of sudden, clinically significant or life threatening deterioration in the patient???s condition, which include the following diagnoses which I have managed: Principal Problem: Encephalopathy Active Problems: Unstable angina (HCC-CMS) (HCC) CAD (coronary artery disease) Anxiety and depression Acute respiratory failure with hypoxia ([facility]) ([facility]) Idiopathic hypotension CVA (cerebral vascular accident) ([facility]) Critical Care time was provided in the form of interventions to treat and prevent further life threatening deterioration of the patient???s condition including: Management of mechanical ventilation, Observation before/during/after ventilator weaning, Neurological monitoring, Management of pain and sedation, Fluid and electrolyte management, Antimicrobial therapy and GI prophylaxis, and high complexity decision making regarding candidacy for extubation and the need for critical procedures, such as: N/A. My bedside involvement was required to monitor and direct the critical care that has been provided.Exclusive of procedures, my critical care time is 60 minutes. Gillian Randolph MD MICU Attending 04/08/2023 documented in this encounter Miscellaneous Notes * Plan of Care - Aiyana Almonte RN - 04/09/2023 0751 EDT Data: VSS on RA. AOX3. No pain, no nausea. Independent. Action: Meds given per OCT. No PRNs required. Response: Tolerating activity and diet. No dizziness. No pain. Discharge home today. Will continue to monitor.. AIYANA ALMONTE RN 04/09/2023 7:41 Problem: Cardiac: Goal: Ability to maintain clinical measurements within defined limits will improve Outcome: Ongoing Goal: Risk of venous thrombosis will decrease Outcome: Ongoing Problem: High Fall Risk: Goal: Patient will Remain Free of Falls due to Altered Mobility Outcome: Ongoing Problem: High Fall Risk: Goal: Patient will Remain Free of Falls due to Med. Side Effects Outcome: Ongoing * Plan of Care - Airam Brown RN - 04/09/2023 0405 EDT Problem: Safety: Goal: Will remain free from falls Outcome: Ongoing Problem: Pain: Goal: Pain level will decrease Outcome: Ongoing Problem: Cognitive/ Neuro: Goal: Will regain or maintain usual level of consciousness Outcome: Ongoing Problem: Cardiac: Goal: Ability to maintain clinical measurements within defined limits will improve Outcome: Ongoing Problem: Respiratory: Goal: Ability to maintain adequate ventilation will improve Outcome: Ongoing Problem: Bowel/Gastric: Goal: Ability to achieve a regular elimination pattern will improve Outcome: Ongoing Problem: Nutritional: Goal: Ability to attain and maintain optimal nutritional status will improve Outcome: Ongoing Problem: Urinary Elimination: Goal: Ability to reestablish a normal urinary elimination pattern will improve Outcome: Ongoing Problem: Activity: Goal: Ability to avoid complications of mobility impairment will improve Outcome: Ongoing Problem: Daily Care Plan Goals Goal: Care Plan Documentation Outcome: Ongoing DATA: received pt at 1900, pt is drowsy but arousable. He is ox3, HR is regular, lungs are clear and diminished on RA sats above 95%, active bowel sounds, continent with urine, able to go to bathroomwith 1 assist. Palpable peripheral pulses, able to take meds,unable to void 6 hours post boucher, bladder scanned was 527 mls ACTION: meds given as per MAR, instructed the importance of voiding 6 hours after boucher removal, encouraged pt to drink fluids, assisted to bathroom RESPONSE: pt is able to void in the bathroom and able to sleep well during the night RESPONSE: able to sleep, pt no complaints * Plan of Care - Steffanie Ramon RN - 04/08/2023 1939 EDT FOUR EYES SKIN ASSESSMENT Four Eyes skin assessment was performed on admission to the unit by Steffanie Ramon RN and Suzy Brown. All skin intact verified by: Steffanie Ramon RN. Last Anibal Score: 14 Instructions: ??? Add LDA for any identified wounds ??? Add Ferris image for any suspected PI or non surgical wounds ??? Order wound consult if suspected PI identified ? ? If Anibal is < or = to 16, initiate Pressure Injury Prevention Bundle ([id number]). 04/08/2023 19:39 * Plan of Care - Katarzyna Young RN - 04/08/2023 1845 EDT Data: assumed care of pt @ 0700. Pt orally intubated, on 30% peep 5, stable off pressors maintaining map>65. Drowsy, but opens eyes to voice, following simple commands. Bilateral soft wrist restraints in place. Boucher in place, draining. Action: SBT this am, extubated to nasal cannula @ 1035, restraints d/cd when extubated In regards to recollection of events yesterday he recalls feeling hot, dizzy, and thirsty while mowing, and was heading back to the house to get a drink. He believes this might be when he passed out. Meds given per oct ECHO/TTE this am Passed nursing bedside swallow eval, diet ordered accuchecks before meals, insulin sliding scale coverage per orders. Response: Downgraded from MICU service, vitals stable, breathing easily on room air. Denies pain. Transportedvia wheelchair to [place] [address] by RN. Report endorsed to Steffanie PHAM who is also aware pt due to void by 2200. Pt updated of transfer. Problem: OXYGENATION/REPIRATORY FUNCTION Goal: Patient Will Maintain Patent Airway Outcome: Ongoing Problem: NEUROLOGICAL FUNCTION Goal: Neurological Status is Stable or Improving Outcome: Ongoing Problem: Safety: Description: Module scope: For the purpose of this module, the definition for restraint comes from the Medicare and Medicaid Programs; Hospital Conditions of Participation. A restraint is any manual,physical, or mechanical device, material, or equip ... Goal: Complications related to restraint use will be avoided or minimized Outcome: Ongoing * Transfer Summary (Intrafacility) - Keenan Laws MD - 04/08/2023 1821 EDT [facility] Medicine Transfer Summary Service Date: 04/08/2023 Admit Date: 04/08/23 Primary Care Provider: Coni Lim Chief Complaint: Syncope HPI Romeo Coelho is a 57 y.o. male with a PMHx of CAD s/p prior PCI and prior CVA, DM2, HLD who presented as a transfer from [facility] on 04/07/2023 intubated and sedated for airway protection after being brought to [facility] via EMS for syncope. Per records, the patient's story is consistent with feeling tired and dehydrated prior to the event, his first of this kind. Eval prior to arrival at the [facility] MICU included head and neck imaging which ruled out an acute bleed. Utox positive for THC, benzodiazepine and fentanyl. Upon arrival the patient briefly required pressors but he was quickly weaned off ofpressure support and extubated to nasal canula. Currently the patient has reassuring vitals on roomair, ready to transfer to medicine. Upon interview the patient reports mowing the lawn and waking up in the ICU. Was tired and lightheaded a bit before the incident. No new substances but did take his gabapentin/robaxin for the first time in a while the night before. Was trying to mow his lawn a little faster that day. Currently in no pain. Has not been drinking a lot due to throat discomfort. Appetite not good. Has not had a BM since he got here he can remember. Lives with his , no smoking or etoh. Uses MJ for pain, no rec substances. Full code. Review of Systems N/A Past Medical History: Diagnosis Date ??? CAD (coronary artery disease) ??? Depression ??? DMII (diabetes mellitus, type 2) ([facility]) ??? Fibromyalgia ??? Gout ??? HLD (hyperlipidemia) ??? HTN (hypertension) ??? Smoking Past Surgical History: Procedure Laterality Date ??? GALLBLADDER SURGERY Social History Tobacco Use ??? Smoking status: Former Packs/day: .25 Types: Cigarettes ??? Smokeless tobacco: Not on file ??? Tobacco comments: pt reports difficulty quitting with being smoker Substance Use Topics ??? Alcohol use: Not on file Family History Problem Relation Age of Onset ??? Heart Disease Unknown ??? Diabetes Unknown Medications Prior to Admission Medication Sig ??? [DISCONTINUED] aspirin 325 mg tablet Take 325 mg by mouth daily (Patient not taking: Reported on 04/08/2023) ??? aspirin 81 mg capsule Take 81 mg by mouth daily. ??? buPROPion (WELLBUTRIN SR) 150 mg SR tablet Take 1 Tablet by mouth 2 times daily. ??? clopidogrel (PLAVIX) 75 mg tablet Take 1 Tab by mouth daily. (Patient not taking: Reported on 04/08/2023) ??? cyclobenzaprine (FLEXERIL) 10 mg tablet Take 1 Tablet by mouth at bedtime as needed for Muscle Spasms. ??? DILTiazem (TIAZAC) 240 mg SR capsule Take 120 mg by mouth daily (Patient not taking: Reported on 04/08/2023) ??? DULoxetine (CYMBALTA) 60 mg capsule Take 1 Capsule by mouth 2 times daily. ??? furosemide (LASIX) 20 mg tablet Take 20 mg by mouth daily as needed. (Patient not taking: Reported on 04/08/2023) ??? gabapentin (NEURONTIN) 800 mg tablet Take 1 Tablet by mouth 3 times daily. 800 mg TID ??? isosorbide mononitrate (IMDUR) 120 mg CR tablet Take 120 mg by mouth daily. (Patient not taking: Reported on 04/08/2023) ??? isosorbide MONOnitrate (IMDUR) 30 mg CR tablet Take 1 Tablet by mouth daily. ??? LEVALBUTEROL HCL INHALATION Inhale as directed. (Patient not taking: Reported on 04/08/2023) ??? magnesium oxide (MAG-OX) 400 mg tablet Take 400 mg by mouth 2 times daily. (Patient not taking:Reported on 04/08/2023) ??? metFORMIN (GLUCOPHAGE) 1,000 mg tablet Take 1 Tablet by mouth 2 times daily. ??? [DISCONTINUED] metoprolol (LOPRESSOR) 100 mg tablet Take 100 mg by mouth 2 times daily. (Patient not taking: Reported on 04/08/2023) ??? metoprolol SUCCinate (TOPROL-XL) 200 mg tablet Take 1 Tablet by mouth daily. ??? nitroGLYCERIN (NITROSTAT) 0.[address] 1 Tablet under the tongue every 5 minutes as needed for Chest Pain. ??? pantoprazole (PROTONIX) 40 mg tablet Take 1 Tablet by mouth 2 times daily. ??? pramipexole (MIRAPEX) 0.5 mg tablet Take 1 Tablet by mouth SEE ADMIN INSTRUCTIONS. Patient takes one 0.5 mg tablet in the morning and two 0.5 mg tablets at night ??? pregabalin (LYRICA) 50 mg capsule Take 1 Capsule by mouth 3 times daily. Daily Max: 150 mg ??? ranolazine (RANEXA) 500 mg SR tablet Take 1 Tab by mouth 2 times daily. ??? rosuvastatin (CRESTOR) 20 mg tablet Take 1 Tab by mouth daily. ??? topiramate (TOPAMAX) 25 mg tablet Take 1 Tablet by mouth SEE ADMIN INSTRUCTIONS. One 25 mg tablet in the morning and two 25 mg tablets at night Allergies Allergen Reactions ??? Lisinopril (Bulk) Cough ??? Thallium-201 cardiac episode Objective Vitals Temp: [36.7 ??C (98 ??F)-37.3 ??C (99.1 ??F)] , Heart Rate: [49 BPM-89 BPM] , Pulse: [80] , Resp: [8-18] , BP: (94-117)/(60-84) , SpO2: [94 %-100 %] , O2 Flow Rate (L/min): 2 l/min Numeric Pain Level (Scale 1-10): 0 Weight: Weight : (!) 108.4 kg (239 lb) Body mass index is 38.58 kg/m??. Physical Exam General: Well appearing. In no acute distress. HEENT: No conjunctival icterus or pallor. No oropharyngeal erythema or exudate. Neck: Full range of motion, trachea midline. Chest: Lungs clear to auscultation bilaterally. No rales, rhonchi, wheezes. CV: Normal rate and regular rhythm. Normal S1 and S2. No murmurs, gallops, or rubs. 2+ radial pulses. GI: Abdomen soft, not tender, not distended. There is no rebound our guarding. : No boucher present. Neuro: Alert and oriented x4. Face symmetrical without dysarthria. Moving all extremities spontaneously. Full strength throughout. Extremities: Warm and dry. 2+ pedal pulses. No lower extremity edema. No cyanosis or erythema. Skin: No rashes, skin breakdown, or jaundice. Psych: Appropriate mood and affect. Labs I have personally reviewed Recent Labs 04/08/23121 WBC 13.25* RBC 4.61 HGB 13.2* HCT 40.8 MCV 89 MCH 28.6 MCHC 32.4* PLT 203 Recent Labs 04/08/23121 NA 144 K 3.8 CL 111* CO2 19* BUN 10 CREATININE 0.92 CALCIUM 8.5 MG 2.0 LABALBU 3.7 Recent Labs 04/08/23121 PROTIME 12.0 INR 1.1 Recent Labs 08/16/23 0122 TBIL <0.5 ALKPHOS 53 AST 25 ALT 18 Imaging XR CHEST PORTABLE LINE PLACEMENT Result Date: 04/08/2023 Endotracheal tube terminates in the lower mid trachea, correlate with positioning of chin and consider retraction. Nasogastric tube separately reported. I have personally reviewed the images and the above interpretation and agree with the findings. [id number] Assessment Romeo Coelho is a 57 y.o. male with a PMHx significant for CAD s/p prior PCI and prior CVA, DM2,HLD who presented as transfer for syncope 2/2 unknown etiology (likely dehydration vs substance induced). Now much improved, pt can likely d/c soon. Plan Syncope, Likely vasovagal vs substance induced TTE normal without valvular abnormality Head imaging negative Tele overnight HTN CAD Hx CVA ASA 81 Ranolazine 500mg BID Hold Isosorbide ER/SR 30 mg daily in AM Metop 50 tartrate BID (LOGISTICS/SHIPPER 200mg Succ) Mood Fibromyalgia Bupropion 150mg BID Cymbalta 60mg BID Gabapentin 800mg BID Topiramate 25mg GERD LOGISTICS/SHIPPER PPI Restless Leg Pramipexole LOGISTICS/SHIPPER DM SSI VTE Prophylaxis Ambulate Code: Full Code Discharge Plan Likely tomorrow Consults None Admission status Inpatient admission due to anticipated duration of hospitalization is two midnights or greater due to altered mental status unknown cause. ABDI PEOPLES 04/08/2023 18:22 Attending attestation: I have seen and examined the patient and agree with findings and plans as outlined in the resident's note above. 57 y/o man with PMHx inc CAD (PCI), possible prior CVA, DM2, HTN, neuropathy and gout, transferred to [facility] MICU from [facility] on 04/07/23 after a syncopal event that occurred after he had mowed his lawn.Per records from [facility], he was found down by his and brought to [facility] via EMS. He was started onPropofol and intubated before being evaluated and subsequently transferred here. He briefly required vasopressors, but was quickly weaned from these and was extubated this am. He presently feels tired but otherwise fine, is AF, HD stable and orthostatics are now negative. He now recalls feeling hotand dehydrated, was walking up to this house to get a drink and became dizzy and lost consciousness. He denies antecedent CP, SOB, palps, recent change in exercise tolerance or cardiac symptoms. Evaluation for stroke and NV (inc troponins and TTE) was unrevealing. Of note his U tox is positive for Benzos, Fentanyl and Cannabis. He acknowledges regular marijuana use (it is prescribed to me) and reports having a niece who struggles with an opiate use disorder,but denies using drugs other than marijuana. Available records from [facility] do not reveal evidence that these drugs were administered there (or here). I shared this information with him but he again reports using marijuana only. Will monitor on tele overnight and likely DC home tomorrow. ?? Keenan Laws MD * Plan of Care - Rick Cuellar MD - 04/08/2023 1356 EDT Plan of Care Note Patient admitted overnight to MICU, intubated from [facility]. Patient briefly on pressors and propofol which were weaned. He was successfully extubated this morning. Per patient conversation, he recounts mowing his lawn at home when he became overheated and thirsty. The last memory that the patient can recount is him walking towards his house for a drink of water. Likely etiology of his condition is dehydration leading to syncope. Per phone conversation with the patient's at 1225, he takes the following medications at home: ?? Gabapentin 800 mg TID ?? Pregabalin 50 mg TID ?? Bupropion SR 150 mg BID ?? Duloxetine 60 mg BID ?? Topiramate 25 mg - one tablet in AM and two tablets in PM ?? Metformin 1000 mg BID ?? Pantoprazole 40 mg BID ?? Rosuvastatin 20 mg daily ?? Aspirin 81 mg daily ?? Isosorbide ER/SR 30 mg daily in AM ?? Metoprolol ER 200 mg daily ?? Ranolazine ER 500 mg BID ?? Pramipexole 0.5 mg - one tablet in AM and two tablets at night ?? Cyclobenzaprine 10mg at bedtime PRN Patient will likely be transferred to the adult hospital medicine as he no longer requires ICU level of care. Rick Cuellar, PGY-1 * Plan of Care - Leigha Welsh RN - 04/08/2023 0700 EDT Problem: Safety: Goal: Will remain free from falls Outcome: Met This Shift Problem: Daily Care Plan Goals Goal: Care Plan Documentation Outcome: Met This Shift Flowsheets (Taken 04/08/2023 0000) Area of Focus: Circulatory Status Goal This Shift: VSS Note: Data: Pt admitted to MICU from OSH @ approx 0000 for AMS. Pt arrives sedated on Propofol. PERRL. NSR on tele; normotensive; afebrile. Lung collins clear; 30%/5PEEP. Hypoactive bowel sounds. Boucher in place; appropriate UO. Action: Propofol turned off to assess neuro status. SBT performed @ approx 0320. 1L LR given. x1 dose IV Tylenol given for pain. Response: Off propofol pt opens eyes to voice and follows commands in all extremities. Pt failed SBT for apnea (see note by RT Prakash). Pt currently resting in bed comfortably. LEIGHA WELSH RN 04/08/2023 6:58 Problem: Safety: Goal: Will remain free from infection Outcome: Ongoing Goal: Ability to remain free from injury will improve Outcome: Ongoing documented in this encounter Plan of Treatment Not on file documented as of this encounter Procedures Procedure Name Priority Date/Time Associated Diagnosis Comments ECG REPORT - SCANNED 04/14/2023 7:42 EDT ECG REPORT - SCANNED 04/13/2023 13:22 EDT BETA HYDROXYBUTYRATE STAT 04/09/2023 12:15 EDT BASIC METABOLIC PANEL (BMP) STAT 04/09/2023 12:15 EDT LACTIC ACID STAT 04/09/2023 12:14 EDT COMPLETE BLOOD COUNT Routine 04/09/2023 9:30 EDT BASIC METABOLIC PANEL (BMP) Routine 04/09/2023 9:30 EDT POCT GLUCOSE, INTERFACED Routine 04/09/2023 8:25 EDT POCT GLUCOSE, INTERFACED Routine 04/08/2023 20:50 EDT POCT GLUCOSE, INTERFACED Routine 04/08/2023 18:11 EDT ECG REPORT - SCANNED 04/08/2023 14:56 EDT POCT GLUCOSE, INTERFACED Routine 04/08/2023 12:37 EDT TRANSTHORACIC ECHO (TTE) COMPLETE Routine 04/08/2023 11:42 EDT EXTUBATION Routine 04/08/2023 10:51 EDT POCT BLOOD GAS, EG6 I-STAT Routine 04/08/2023 5:11 EDT XR FEEDING TUBE PLACEMENT Routine 04/08/2023 1:45 EDT XR CHEST PORTABLE LINE PLACEMENT Routine 04/08/2023 1:44 EDT POLYSUBSTANCE USE PANEL, URINE STAT 04/08/2023 1:22 EDT MRSA PCR Routine 04/08/2023 1:22 EDT FENTANYL AND METABOLITE CONFIRMATION PANEL Today 04/08/2023 1:22 EDT PROTIME STAT 04/08/2023 1:22 EDT FIBRINOGEN STAT 04/08/2023 1:22 EDT COMPLETE BLOOD COUNT STAT 04/08/2023 1:22 EDT POCT GLUCOSE, INTERFACED Routine 04/08/2023 1:22 EDT TSH STAT 04/08/2023 1:22 EDT NT PRO BNP STAT 04/08/2023 1:22 EDT MAGNESIUM Add-On 04/08/2023 1:22 EDT CK Add-On 04/08/2023 1:22 EDT ETHANOL, BLOOD STAT 04/08/2023 1:22 EDT COMPREHENSIVE METABOLIC PANEL (CMP) STAT 04/08/2023 1:22 EDT EKG 12-LEAD Routine 04/08/2023 0:23 EDT documented in this encounter Results * ECG REPORT - SCANNED (04/14/2023 7:42 EDT) 04/14/2023 7:42 EDT Scan 2 Tool Storage Attendant PROCEDURE/MINOR GUSTAVO GICAL ORDERABLES * ECG REPORT - SCANNED (04/13/2023 13:22 EDT) 04/13/2023 13:2 2 EDT Scan 2 Tool Storage Attendant PROCEDURE/MINOR GUSTAVO GICAL ORDERABLES * BETA HYDROXYBUTYRATE (04/09/2023 12:15 EDT) Beta Hydroxybutyrate <0.1 <0.4 mmol/L 04/09/2023 12:48 EDT [facility] Blood VENOUS BLOOD / Unknown Venipuncture / Unknown 04/09/2023 12:15 EDT 04/09/2023 12:24 EDT Keeley Quiroz PA-C CHEMISTRY & BLOOD GAS ORDERABLES [facility] [address] [place] [address] * (ABNORMAL) BASIC METABOLIC PANEL (BMP) (04/09/2023 12:15 EDT) Sodium 140 136 - 145 mmol/L 04/09/2023 12:42 EDT [facility] Potassium 3.7 3.5 - 5.0 mmol/L 04/09/2023 12:42 EDT [facility] Chloride 110 96 - 110 mmol/L 04/09/2023 12:42 EDT [facility] CO2 Total 19(L) 22 - 32 mmol/L 04/09/2023 12:42 T [facility] Anion Gap 11 5 - 14 mmol/L 04/09/2023 12:42 T [facility] Glucose 122(H) 70 - 99 mg/dl 04/09/2023 12:42 T [facility] Calcium 8.8 8.5 - 10.5 mg/dL 04/09/2023 12:42 [facility] BUN 11 10 - 26 mg/dL 04/09/2023 12:42 [facility] Creatinine 0.68 0.66 - 1.25 mg/dL 04/09/2023 12:42 [facility] eGFR 110 >60 mL/min/1.73 m2 04/09/2023 12:42 T [facility] Blood VENOUS BLOOD / Unknown Venipuncture / Unknown 04/09/2023 12:15 EDT 04/09/2023 12:24 EDT Keeley Quiroz PA-C CHEMISTRY & BLOOD GAS ORDERABLES [facility] [address] [place] [address] * LACTIC ACID (04/09/2023 12:14 EDT) Lactic Acid 0.9 <=2.0 mmol/L 04/09/2023 12:53 EDT [facility] Blood VENOUS BLOOD / Unknown Venipuncture / Unknown 04/09/2023 12:14 EDT 04/09/2023 12:25 EDT Keeley Quiroz PA-C CHEMISTRY & BLOOD GAS ORDERABLES Performing Organization Address City/[facility]/ZIP Co de Phone Number [facility] [address] [place] [address] * (ABNORMAL) BASIC METABOLIC PANEL (BMP) (04/09/2023 9:30 EDT) Sodium 140 136 - 145 mmol/L 04/09/2023 11:13 T [facility] Potassium 3.7 3.5 - 5.0 mmol/L 04/09/2023 11:13 [facility] Comment:Slight hemolysis christo ntified, interpret with caution as hemolysis will elevate potassium result. Chloride 110 96 - 110 mmol/L 04/09/2023 11:13 [facility] CO2 Total 15(L) 22 - 32 mmol/L 04/09/2023 11:13 [facility] Anion Gap 15(H) 5 - 14 mmol/L 04/09/2023 11:13 [facility] Glucose 203(H) 70 - 99 mg/dl 04/09/2023 11:13 [facility] Calcium 8.8 8.5 - 10.5 mg/dL 04/09/2023 11:13 [facility] BUN 12 10 - 26 mg/dL 04/09/2023 11:13 [facility] Comment: Slight hemolysis identified, interpret with caution as results may be affected due to hemolysis. Creatinine 0.78 0.66 - 1.25 mg/dL 04/09/2023 11:13 [facility] eGFR 105 >60 mL/min/1.7 3m2 04/09/2023 11:13 [facility] Blood VENOUS BLOOD / Unknown Venipuncture / Unknown 04/09/2023 9:30 EDT 04/09/2023 10:39 EDT Memo Odonnell MD CHEMISTRY & BLOOD GA S ORDERABLES Performing Organization Address City/[facility]/ZIP Co de Phone Number [facility] [address] [place] [address] * (ABNORMAL) COMPLETE BLOOD COUNT (04/09/2023 9:30 EDT) Pathologist [facility] WBC 8.85 4.00 - 10.40 K/cmm 04/09/2023 10:47 [facility] RBC 4.69 4.36 - 5.78 M/cmm 04/09/2023 10:47 [facility] Hemoglobin 13.9 13.8 - 17.3 g/dL 04/09/2023 10:47 [facility] HCT 40.9 39.5 - 50.2 % 04/09/2023 10:47 [facility] MCV 87 81 - 95 fL 04/09/2023 10:47 [facility] MCH 29.6 27.6 - 33.0 pg 04/09/2023 10:47 [facility] MCHC 34.0 32.8 - 36.4 g/dL 04/09/2023 10:47 [facility] RDW-CV 14.1 <14.2 % 04/09/2023 10:47 [facility] RDW-SD 45.1 <46.0 fl 04/09/2023 10:47 [facility] PLT 137(L) 141 - 377 K/cmm 04/09/2023 10:47 [facility] MPV 11.8 9.5 - 12.7 fL 04/09/2023 10:47 [facility] Blood VENOUS BLOOD / Unknown Venipuncture / Unknown 04/09/2023 9:30 EDT 04/09/2023 10:39 EDT Memo Odonnell MD HEMATOLOGY & PF4 ORD ERABLES [facility] [address] [place] [address] * (ABNORMAL) POCT GLUCOSE, INTERFACED (04/09/2023 8:25 EDT) Pathologist [facility] Glucose, POC 154(H) 70 - 100 mg/dL 04/09/2023 8:26 EDT [facility] HN LAB POC COMMENT (GLUCOSE) Test Performed by Nursing Services 04/09/2023 8:26 EDT [facility] Blood CAPILLARY BLOOD / Unknown 04/09/2023 8:25 EDT 04/09/2023 8:26 EDT Abdi Peoples POINT OF CARE TEST O RDERABLES Performing Organization Address [facility]/ZIP Co de Phone Number [facility] [address] [place] [address] * (ABNORMAL) POCT GLUCOSE, INTERFACED (04/08/2023 20:50 EDT) Glucose, POC 128(H) 70 - 100 mg/dL 04/08/2023 20:51 EDT [facility] HN LAB POC COMMENT (GLUCOSE) Test Performed by Nursing Services 04/08/2023 20:51 EDT [facility] Blood CAPILLARY BLOOD / Unknown 04/08/2023 20:50 EDT 04/08/2023 20:51 EDT Gillian Randolph MD POINT OF CARE TEST ORDERABLES Performing Organization Address [facility] Co de Phone Number [facility] [address] [place] [address] * (ABNORMAL) POCT GLUCOSE, INTERFACED (04/08/2023 18:11 EDT) Glucose, POC 131(H) 70 - 100 mg/dL 04/08/2023 18:12 EDT [facility] HN LAB POC COMMENT (GLUCOSE) Test Performed by Nursing Services 04/08/2023 18:12 EDT [facility] Blood CAPILLARY BLOOD / Unknown 04/08/2023 18:11 EDT 04/08/2023 18:12 EDT Rick Cuellar MD POINT OF CARE TEST ORDERABLES Performing Organization Address City/[facility]/ZIP Co de Phone Number [facility] [address] [place] [address] * ECG REPORT - SCANNED (04/08/2023 14:56 EDT) 04/08/2023 14:5 6 EDT Scan 2 Tool Storage Attendant PROCEDURE/MINOR GUSTAVO GICAL ORDERABLES * (ABNORMAL) POCT GLUCOSE, INTERFACED (04/08/2023 12:37 EDT) Pathologist [facility] Glucose, POC 115(H) 70 - 100 mg/dL 04/08/2023 12:39 EDT [facility] HN LAB POC COMMENT (GLUCOSE) Test Performed by Nursing Services 04/08/2023 12:39 EDT [facility] Blood CAPILLARY BLOOD / Unknown 04/08/2023 12:37 EDT 04/08/2023 12:39 EDT Gillian Randolph MD POINT OF CARE TEST ORDERABLES [facility] [address] [place] [address] * TRANSTHORACIC ECHO (TTE) COMPLETE W/DOPPLER W/CF NO CONTRAST (04/08/2023 11:42 EDT) LA Atrial Length A2C 5.6 cm [facility]INT [facility] C[facility] LA Atrial Area A4C 17.5 cm2 [facility] POINT OF CARE LA ID/bsa, A-P 1.5 cm/m2 [facility] POINT OF CARE LV ID, ED, PLAX 5.3 3.5 - 6.0 cm [facility] POINT OF CARE LVIDD BY MMODE 5.3 cm [facility] POINT [facility] C[facility] LV ID, ES, PLAX 3.7 2.1 - 4.0 cm [facility] POINT [facility] CARE LA ID, A-P, ES 3.3 cm [facility]INT [facility] LV PW thickness, ED, PLAX 1.1 0.6 - 1.1 cm [facility] POINT [facility] CARE Aortic root ID 2.9 cm [facility] POINT [facility] C[facility] LV ejection fraction, 1-p A4C 54 % [facility] POIN T OF CARE LVOT mean gradient, S 2 mmHg [facility]INT [facility] C[facility] AV LVOT peak gradient 4 mmHg [facility] POINT [facility] C[facility] LV e', lateral 0.10 m/s [facility] POINT OF CARE Mitral deceleration time 187 ms [facility]INT [facility] LV IVRT, DP 77 msec [facility] PO INT OF CARE LVOT area 3.5 cm2 [facility] POIN T OF CARE LVOT peak velocity, S 1.0 m/s [facility] POINT OF CARE LVOT VTI, S 19.8 cm [facility] PO INT OF CARE Stroke volume (SV), LVOT DP 69 ml [facility] POINT OF CARE LVOT mean velocity, S 0.7 m/s [facility] C[facility] Mitral E-wave peak velocity 0.7 m/s [facility] POINT OF CARE Mitral A-wave peak velocity 0.8 m/s [facility]INT [facility] C[facility] LV Systolic Volume Index 18.0 mL/m2 [facility] LV Diastolic Volume Index 39.0 mL/m2 [facility] POINT OF CARE LA Atrial Length A4C 5.5 cm [facility] POINT OF CARE LVOT ID, S 2.1 cm [facility] POI NT OF CARE EF 53 % [facility] POIN T OF CARE LA volume, ES, BP 44.0 ml [facility] POINT OF CARE LA volume/bsa, ES, A4C 19.0 ml/m2 [facility] POINT OF CARE LA volumes, ES, A4C 41.0 ml [facility] POINT OF CARE LA volume/bsa, ES, BP 21.0 ml/m2 [facility] POINT OF CARE LV Systolic Volume 39 mL [facility] POINT OF CARE LV Diastolic Volume 83 mL [facility] POINT OF CARE Stroke index (SV/bsa) LVOT DP 32.0 ml/m2 [facility] POINT OF CARE Interventricular Septum to Posterior Wall Thickness Ratio 1 [facility] P OINT OF CARE IVS thickness, ED, PLAX 1.1 cm [facility] POINT OF CARE LV e', medial 0.07 m/s [facility] POINT OF CARE LV e', average 0.09 m/s [facility]INT [facility] C[facility] Pulmonic valve mean velocity, S 1 cm/s [facility] POINT OF CARE Ascending aorta ID, a-p 3.2 cm [facility] POINT OF CARE LA Atrial Area A2C 17.5 cm2 [facility] POINT OF C[facility] LA/aortic root ratio 1.14 [facility] POINT OF CARE LV end diastolic volume 1-p A2C 82 ml [facility] POINT OF CARE LV ejection fraction, 1-p A2C 54 % [facility] POIN T OF CARE LV E/e', lateral 7.0 [facility] POINT OF CARE LV E/e', medial 0.1 [facility] N POINT OF CARE LV E/e', average 4 [facility] POINT OF CARE LV end-diastolic volume, 1-p A4C 81 ml [facility] POINT OF CARE Anatomical Region Laterality Modality Ultrasound Narrative 04/08/2023 12:08 EDT ?Left??Ventricle: The left ventricular cavity was normal in size. Left ventricular systolic function was normal with an ejection fraction of 50-55%. The left ventricular estimated ejection fraction by biplane Mcleod's method was 53%. Left ventricular diastolic parameters were normal. Global longitudinal strain was normal (-18.1%). ?Right??Ventricle: The right ventricular cavity was normal in size. Right ventricular systolic function was normal. Normal tricuspid annular plane systolic excursion (TAPSE) >1.7 cm. Normal RV S' >9.5cm/s. ?Valves: Normal valvular function. Left Ventricle The left ventricular cavity was normal in size. Left ventricular systolic function was normal with an ejection fraction of 50-55%. The left ventricular estimated ejection fraction by biplane Mcleod's method was 53%. Left ventricular diastolic parameters were normal. Left ventricular wall thickness was normal. Left ventricular wall motion was normal; there were no regional wall motion abnormalities. Global longitudinal strain was normal (-18.1%). Right Ventricle The right ventricular cavity was normal in size. Right ventricular systolic function was normal. Normal tricuspid annular plane systolic excursion (TAPSE) >1.7 cm. Normal RV S' >9.5cm/s. Right ventricular wall thickness was normal. Left Atrium The left atrium was normal in size. Left atrial volume index was normal. Right Atrium The right atrium was normal in size. IVC/SVC The inferior vena cava was normal in size. The inferior vena cava demonstrated a diameter of <=21 mm and collapses >50%; therefore, the right atrial pressure is estimated at 0-5 mmHg. Mitral Valve Mitral valve structure was normal. There was no significant mitral valve stenosis or regurgitation. Tricuspid Valve Tricuspid valve structure was normal. There was no significant tricuspid valve regurgitation. There was no tricuspid valve stenosis. Aortic Valve The aortic valve structure was trileaflet. The aortic leaflets were not thickened. There was no aortic valve stenosis. There was no aortic valve regurgitation. Pulmonic Valve There was no significant pulmonic valve regurgitation. There was no pulmonic valve stenosis. Ascending Aorta The aortic root was normal in size. The ascending aorta was normal in size. Pericardium There was no pericardial effusion. Pulmonic Artery Unable to assess PA pressure. Study Details Study status: Routine. Transthoracic echocardiography. M-Mode, complete 2D, complete spectral Doppler, and color Doppler.The study was interpreted by [facility]. Pertinent images and digital data are archived for permanent storage and are available for subsequent review. Scanning was performed from the apical, parasternal, subcostal and suprasternal acoustic windows. Overall the study quality was adequate. Images were obtained using cardiac ultrasound machine [id number]. Antonio Majano CARDIAC ECHO ORDERAB LES * (ABNORMAL) POCT BLOOD GAS, EG6 I-STAT (04/08/2023 5:11 EDT) pH, Venous, i-STAT 7.38 7.31 - 7.41 04/08/2023 5:15 [facility] pCO2, Venous, i-STAT 29(L) 41 - 51 mmHg 04/08/2023 5:15 [facility] pO2, Venous, i-STAT 57(H) 30 - 50 mmHg 04/08/2023 5:15 [facility] TCO2, Venous, i-STAT 18(L) 22 - 28 mmol/L 04/08/2023 5:15 [facility] O2 Saturation, Venous, i-STAT 89(H) 60 - 85 % 04/08/2023 5:15 [facility] Base Excess(+) / Deficit(-), Venous, i-STAT -7(L) -2 - 3 mmol/L 04/08/2023 5:15 EDT [facility] Blood VENOUS BLOOD / Unknown 04/08/2023 5:11 EDT 04/08/2023 5:15 EDT Narrative [facility] - 04/08/2023 5:15 EDT Test Performed by Respiratory Antonio Melecio POINT OF CARE TEST O RDERABLES Performing Organization Address City/State/[facility] Co de Phone Number [facility] [address] [place] [address] * XR FEEDING TUBE PLACEMENT (04/08/2023 1:45 EDT) Anatomical Region Laterality Modality Abdomen Computed Radiogr aphy 04/08/2023 8:49 EDT Narrative 04/08/2023 8:49 EDT XR FEEDING TUBE PLACEMENT 04/08/2023 1:05 AM Signs and Symptoms: Post-feeding tube placement; Comparison: CT chest abdomen pelvis 04/07/2023. Findings: Portable AP view centered over the lower chest and upper abdomen demonstrates that the transesophageal sump tube side port and terminus project over the gastric fundus. Paucity of bowel gas is a nonspecific finding. No abnormally dilated loops of bowel. Chest radiograph reported separately. Partially imaged excreted contrast in the collecting system. Cholecystectomy clips. This is neither a complete view of the chest nor of the abdomen. ??If either view is needed, formal films are recommended. I have personally reviewed the images and the above interpretation and agree with the findings. [id number] Procedure Note Ramirez Mendez MD - 04/08/2023 XR FEEDING TUBE PLACEMENT 04/08/2023 1:05 AM Signs and Symptoms: Post-feeding tube placement; Comparison: CT chest abdomen pelvis 04/07/2023. Findings: Portable AP view centered over the lower chest and upper abdomendemonstrates that the transesophageal sump tube side port and terminusproject over the gastric fundus. Paucity of bowel gas is a nonspecificfinding. No abnormally dilated loops of bowel. Chest radiograph reported separately. Partially imaged excreted contrastin the collecting system. Cholecystectomy clips. This is neither a complete view of the chest nor of the abdomen. Ifeither view is needed, formal films are recommended. I have personally reviewed the images and the above interpretation andagree with the findings. [id number] Ac Fish MD IMG DIAGNOSTIC I MAGING ORDERABLES * XR CHEST PORTABLE LINE PLACEMENT (04/08/2023 1:44 EDT) Anatomical Region Laterality Modality Chest Computed Radiogr aphy 04/08/2023 8:53 EDT Impressions 04/08/2023 8:53 EDT Endotracheal tube terminates in the lower mid trachea, correlate with positioning of chin and consider retraction. Nasogastric tube separately reported. I have personally reviewed the images and the above interpretation and agree with the findings. [id number] Narrative 04/08/2023 8:53 EDT XR CHEST PORTABLE LINE PLACEMENT ??04/08/2023 12:35 AM Clinical History/comments: ETT and NG tube; Comparison: Chest radiograph and CT chest abdomen pelvis 04/07/2023. Technique: Single portable AP view of the chest. Findings: Lines/tubes: Endotracheal tube terminates in the lower mid trachea. Transesophageal tube reported separately. Transesophageal temperature probe in place. Lungs: Clear lungs. Normal pulmonary vasculature. Pleura: No significant findings. Cardiac and mediastinal contours: Normal size and contours. Partially imaged coronary stents. Soft tissues and extrathoracic findings: No acute findings. Bones: No acute findings. Procedure Note Shaun Hwang MD - 04/08/2023 XR CHEST PORTABLE LINE PLACEMENT 04/08/2023 12:35 AM Clinical History/comments: ETT and NG tube; Comparison: Chest radiograph and CT chest abdomen pelvis 04/07/2023. Technique: Single portable AP view of the chest. Findings: Lines/tubes: Endotracheal tube terminates in the lower mid trachea.Transesophageal tube reported separately. Transesophageal temperatureprobe in place. Lungs: Clear lungs. Normal pulmonary vasculature. Pleura: No significant findings. Cardiac and mediastinal contours: Normal size and contours. Partiallyimaged coronary stents. Soft tissues and extrathoracic findings: No acute findings. Bones: No acute findings. IMPRESSION Endotracheal tube terminates in the lower mid trachea, correlate withpositioning of chin and consider retraction. Nasogastric tube separatelyreported. I have personally reviewed the images and the above interpretation andagree with the findings. [id number] Antonio Majano IMG DIAGNOSTIC IMAGI NG ORDERABLES * (ABNORMAL) FENTANYL AND METABOLITE CONFIRMATION PANEL (04/08/2023 1:22 EDT) Pathologist [facility] Fentanyl Confirmation >40(A) <2 ng/mL 04/09/2023 10:36 EDT [facility] Norfentanyl Confirmation 49(A) <10 ng/mL 04/09/2023 10:36 EDT [facility] Urine URINE / Unknown Urine Collect / Unknown 04/08/2023 1:22 EDT 04/08/2023 1:28 EDT Narrative [facility] - 04/09/2023 10:36 EDT Testing performed by: [facility] [address] [place] [address], [facility] [address] [address] [employer] Specialist: Marco Morocho MD; CLIA # [id number] Antonio Majano GEN LAB UNIT COLLECT ORDERABLES [facility] [address] [place] [address] [phone] * CK (04/08/2023 1:22 EDT) Pathologist [facility] CK 82 <=250 U/L 04/08/2023 4:29 EDT [facility] Blood VENOUS BLOOD / Unknown Venipuncture / Unknown 04/08/2023 1:22 EDT 04/08/2023 1:28 EDT Antonio Majano CHEMISTRY & BLOOD GA S ORDERABLES [facility] [address] [place] [address] * MAGNESIUM (04/08/2023 1:22 EDT) Pathologist [facility] Magnesium 2.0 1.7 - 2.8 mg/dL 04/08/2023 2:08 EDT [facility] Blood VENOUS BLOOD / Unknown Venipuncture / Unknown 04/08/2023 1:22 EDT 04/08/2023 1:28 EDT Gillian Randolph MD CHEMISTRY & BLOOD GAS ORDERABLES [facility] [address] [place] [address] * (ABNORMAL) POCT GLUCOSE, INTERFACED (04/08/2023 1:22 EDT) Pathologist [facility] Glucose, POC 151(H) 70 - 100 mg/dL 04/08/2023 1:23 EDT [facility] HN LAB POC COMMENT (GLUCOSE) Test Performed by Nursing Services 04/08/2023 1:23 EDT [facility] Blood CAPILLARY BLOOD / Unknown 04/08/2023 1:22 EDT 04/08/2023 1:23 EDT Gillian Randolph MD POINT OF CARE TEST ORDERABLES Performing Organization Address City/[facility]/ZIP Co de Phone Number [facility] [address] [place] [address] * MRSA PCR (04/08/2023 1:22 EDT) [facility] MRSA/Staph aureus Result Staphylococcus aureus detected by PCR (MRSA NOT detected) 04/08/2023 10:57 EDT [facility] Swab BOTH ANTERIOR NARES / Unknown Swab / Unknown 04/08/2023 1:22 EDT 04/08/2023 1:44 EDT Antonio MICHEL - GENER AL ORDERABLES Performing Organization Address City/[facility]/ZIP Co de Phone Number [facility] [address] [place] [address] * (ABNORMAL) POLYSUBSTANCE USE PANEL, URINE (04/08/2023 1:22 EDT) [facility] Buprenorphine Screen, Urine Negative <5 ng/mL 04/08/2023 11:51 EDT [facility] Oxycodone Screen, Urine Negative <100 ng/mL 04/08/2023 11:51 [facility] Cotinine Screen, Urine Negative <500 ng/mL 04/08/2023 11:51 EDT [facility] Benzodiazepines Screen, Urine Positive(A) <200 ng/mL 04/08/2023 11:51 [facility] Amphetamines Screen, Urine Negative <1000 ng/mL 04/08/2023 11:51 [facility] Cocaine Metabolite Screen, Urine Negative <150 ng/mL 04/08/2023 11:51 [facility] THC Metabolites Screen, Urine Positive(A) <50 ng/mL 04/08/2023 11:51 [facility] Barbiturates Screen, Urine Negative <200 ng/mL 04/08/2023 11:51 [facility] Opiates Screen, Urine Negative <300 ng/mL 04/08/2023 11:51 [facility] Alcohol Metabolite (EtG) Screen, Urine Negative <500 ng/mL 04/08/2023 11:51 [facility] Methadone Screen, Urine Negative <300 ng/mL 04/08/2023 11:51 [facility] Fentanyl Screen with Reflex to Confirmation, U Positive(A) <1 ng/mL 04/08/2023 11:51 [facility] Comment: Trazodone is known to cross react with the Fentanyl immunoassay and may cause a false positive Urine URINE / Unknown Urine Collect / Unknown 04/08/2023 1:22 EDT 04/08/2023 1:28 EDT Narrative [facility] - 04/08/2023 11:51 EDT Testing performed by: [facility] [address] [place] [address], [address], [place] [address] [employer] Production Specialist: Marco Morocho MD; CLIA # [id number] Antonio MAURER LAB UNIT COLLECT ORDERABLES [facility] [address] [facility], [address] [place] [address], [facility] [phone] * FIBRINOGEN (04/08/2023 1:22 EDT) Pathologist [facility] Fibrinogen 323 171 - 384 mg/dL 04/08/2023 1:53 EDT [facility] Blood VENOUS BLOOD / Unknown Venipuncture / Unknown 04/08/2023 1:22 EDT 04/08/2023 1:32 EDT [employer] & PF4 ORD WAGNERBLES Performing Organization Address [facility] de Phone Number [facility] [address] [place] [id number] * PROTIME (04/08/2023 1:22 EDT) [facility] I.N.R. 1.1 0.9 - 1.1 Ratio 04/08/2023 1:53 EDT [facility] Pro Time 12.0 9.7 - 12.8 secs 04/08/2023 1:53 EDT [facility] Blood VENOUS BLOOD / Unknown Venipuncture / Unknown 04/08/2023 1:22 EDT 04/08/2023 1:32 EDT Narrative [facility] - 04/08/2023 1:53 EDT Moderate Intensity Coumadin INR = 2.0-3.0 Adjustments in anticoagulant therapy dose should be based on the INR and NOT on the Protime. Orgger & PF4 ORD TrivnetBLES Performing Organization Address [facility] de Phone Number [facility] [address] [place] [phone] * ETHANOL, BLOOD (04/08/2023 1:22 EDT) Pathologist [facility] Ethanol, Blood <10 <10 mg/dL mg/dL 04/08/2023 1:52 EDT [facility] Comment:Healthy, non-drinkin g individuals will have an ethanol concentration of <10 mg/dL. Blood VENOUS BLOOD / Unknown Venipuncture / Unknown 04/08/2023 1:22 EDT 04/08/2023 1:28 EDT [employer] CHEMISTRY & BLOOD GA S ORDERABLES [facility] [address] [place] [address] * TSH (04/08/2023 1:22 EDT) TSH 0.61 0.47 - 4.68 mIU/L 04/08/2023 2:25 EDT [facility] Blood VENOUS BLOOD / Unknown Venipuncture / Unknown 04/08/2023 1:22 EDT 04/08/2023 1:28 EDT Narrative [facility] - 04/08/2023 2:25 EDT The results of this assay can be falsely lowered due to the consumption of Biotin. [employer] CHEMISTRY & BLOOD GA S ORDERABLES Performing Organization Address [facility] Co de Phone Number [facility] [address] [place] [address] * NT PRO BNP (04/08/2023 1:22 EDT) Pathologist [facility] NT-pro BNP <20 <299 pg/mL 04/08/2023 2:04 EDT [facility] Comment: In the acute setting NT-proBNP values <300 pg/mL have a 98% NPV for excluding acute heart failure. In outpatient populations, NT-proBNP values <125 have a 99% NPV for excluding heart failure. Blood VENOUS BLOOD / Unknown Venipuncture / Unknown 04/08/2023 1:22 EDT 04/08/2023 1:28 EDT [employer] CHEMISTRY & BLOOD GA S ORDERABLES Performing Organization Address City/[facility] Co de Phone Number [facility] [address] [place] [address] * (ABNORMAL) COMPREHENSIVE METABOLIC PANEL (CMP) (04/08/2023 1:22 EDT) Sodium 144 136 - 145 mmol/L 04/08/2023 1:52 EDT [facility] Potassium 3.8 3.5 - 5.0 mmol/L 04/08/2023 1:52 [facility] Chloride 111(H) 96 - 110 mmol/L 04/08/2023 1:52 [facility] CO2 Total 19(L) 22 - 32 mmol/L 04/08/2023 1:52 [facility] Glucose 152(H) 70 - 99 mg/dl 04/08/2023 1:52 [facility] BUN 10 10 - 26 mg/dL 04/08/2023 1:52 [facility] Creatinine 0.92 0.66 - 1.25 mg/dL 04/08/2023 1:52 [facility] eGFR 98 >60 mL/min/1.7 3m2 04/08/2023 1:52 [facility] Total Protein 6.2(L) 6.3 - 8.2 g/dL 04/08/2023 1:52 [facility] Albumin 3.7 3.4 - 4.9 g/dL 04/08/2023 1:52 [facility] Alkaline Phosphatase 53 38 - 126 U/L 04/08/2023 1:52 [facility] AST 25 15 - 46 U/L 04/08/2023 1:52 [facility] ALT 18 <50 U/L 04/08/2023 1:52 [facility] Bilirubin, Total <0.5 <1.4 mg/dL 04/08/20 23 1:52 [facility] Calcium 8.5 8.5 - 10.5 mg/dL 04/08/2023 1:52 [facility] Albumin/Globulin Ratio 1.5 1.0 - 2.5 g/dL 04/08/2023 1:52 [facility] Anion Gap 14 5 - 14 mmol/L 04/08/2023 1:52 [facility] Blood VENOUS BLOOD / Unknown Venipuncture / Unknown 04/08/2023 1:22 [facility] 04/08/2023 1:28 EDT Antonio Majano CHEMISTRY & BLOOD GA S ORDERABLES [facility] [address] [place] [address] * (ABNORMAL) COMPLETE BLOOD COUNT (04/08/2023 1:22 EDT) WBC 13.25(H) 4.00 - 10.40 K/cmm 04/08/2023 1:37 EDT [facility] RBC 4.61 4.36 - 5.78 M/cmm 04/08/2023 1:37 EDT [facility] Hemoglobin 13.2(L) 13.8 - 17.3 g/dL 04/08/2023 1:37 EDT [facility] HCT 40.8 39.5 - 50.2 % 04/08/2023 1:37 EDT [facility] MCV 89 81 - 95 fL 04/08/2023 1:37 EDT [facility] MCH 28.6 27.6 - 33.0 pg 04/08/2023 1:37 EDT [facility] MCHC 32.4(L) 32.8 - 36.4 g/dL 04/08/2023 1:37 T [facility] RDW-CV 14.5(H) <14.2 % 04/08/2023 1:37 EDT [facility] RDW-SD 46.4(H) <46.0 fl 04/08/2023 1:37 EDT [facility] PLT 203 141 - 377 K/cmm 04/08/2023 1:37 EDT [facility] MPV 10.3 9.5 - 12.7 fL 04/08/2023 1:37 [facility] Blood VENOUS BLOOD / Unknown Venipuncture / Unknown 04/08/2023 1:22 EDT 04/08/2023 1:28 EDT Antonio Majano HEMATOLOGY & PF4 ORD ERABLES [facility] [address] [place] [address] * EKG 12-LEAD (04/08/2023 0:23 EDT) 04/08/2023 0:23 EDT Narrative [facility] EKG - 04/08/2023 14:50 EDT ? [facility] ? Test Date: ?2023-04-08 Pat Name: ? ROMEO LAQUITA ?Department: ?? MICU ? Room: ? M412 Gender: ? Male ? 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 Requested By: MELECIO SINGH Order Number: [id number] ? Reading MD: ?? BRANDO LAYNE MD ? Measurements Intervals ?[place] ? Rate: ? 81 ? P: ?29 MA: ? 153 ?QRS: ?33 QRSD: ? 98 ? T: ?41 QT: ? 362 ? QTc: ?422 ? Interpretive Statements SINUS RHYTHM I reviewed the tracing and have either agreed or edited the findings in this report. Electronically Signed On 04-08-2023 14:50:57 EDT by BRANDO LAYNE MD. 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 Electronically Signed On 04-08-2023 14:50:57 EDT by BRANDO BARRAZA. Antonio Majano CARDIAC ECG ORDERABL ES [facility] EKG documented in this encounter Visit Diagnoses Diagnosis Encephalopathy- Primary Encephalopathy, unspecified Acute respiratory failure with hypoxia (HCC-CMS) Acute respiratory failure Cerebrovascular accident (CVA), unspecified mechanism (HCC-CMS) Encephalopathy Encephalopathy, unspecified Syncope, unspecified syncope type Acute respiratory failure with hypoxia (HCC-CMS) Acute respiratory failure Unstable angina (HCC-CMS) ([facility]) Intermediate coronary syndrome CAD (coronary artery disease) Coronary atherosclerosis of unspecified type of vessel, [place] or graft Anxiety and depression Dysthymic disorder CVA (cerebral vascular accident) (HCC-CMS) Unspecified cerebral artery occlusion with cerebral infarction Idiopathic hypotension Hypotension, unspecified documented in this encounter Admitting Diagnoses Diagnosis Encephalopathy Encephalopathy, unspecified documented in this encounter Administered Medications Inactive Administered Medications - up to 3 most recent administrations Medication Order MAR Action Action Date Dose Rate Site acetaminophen (OFIRMEV) IV solution 1,000 mg 1,000 mg, intravenous, NOW X1, 1 dose, On Thu04/08/23 at 0400, Is the patient NPO? If No, state reason why oral acetaminophen cannot be used in Comment field. Yes, Is this patient nothing by rectum? If No, state why rectal acetaminophen cannot be used in the Comment field. Yes, Are NSAIDs contraindicated in this patient? Yes, Is the patient in ED, PACU or ICU? Yes, Routine Given 04/08/2023 4:30 EDT 1,000 mg acetaminophen (TYLENOL) tablet 650 mg 650 mg, oral, EVERY 6 HOURS PRN, Starting on Thu04/08/23 at 1030, Until Thu04/09/23 at 1554, Pain, Routine aspirin chewable tablet 81 mg 81 mg, oral, DAILY, First dose on Thu04/09/23 at 0900, Until Discontinued Given 04/09/2023 9:04 EDT 81 mg buPROPion (WELLBUTRIN SR) SR tablet 150 mg 150 mg, oral, 2 TIMES DAILY, First dose on Thu04/08/23 at 2100, Until Discontinued, Routine Given 04/09/2023 9:03 EDT 150 mg Given 04/08/2023 21:38 EDT 150 mg dextrose 50 % solution 12.5 g 12.5 g (25 mL), intravenous, PRN, Starting on Thu04/08/23 at 1242, Until Thu04/09/23 at 1554, Low Blood Sugar, Routine DULoxetine (CYMBALTA) delayed release capsule 60 mg 60 mg, oral, 2 TIMES DAILY, First dose on Thu04/08/23 at 2100, Until Discontinued, Routine Given 04/09/2023 9:04 EDT 60 mg Given 04/08/2023 21:38 EDT 60 mg famotidine (PEPCID) injection 20 mg 20 mg, intravenous, 2 TIMES DAILY, First dose on Thu04/08/23 at 0900, Until Discontinued, Routine Given 04/08/2023 9:56 EDT 20 mg folic acid 1 mg in sodium chloride (NS) 0.9 % 50 mL IVPB 1 mg, intravenous, Administer over 30 Minutes, DAILY, First dose on Thu04/08/23 at 0900, Until Discontinued, Routine Given 04/09/2023 10:58 EDT 1 mg Given 04/08/2023 11:12 EDT 1 mg gabapentin (NEURONTIN) capsule 800 mg 800 mg, oral, 2 TIMES DAILY, First dose (after last modification) on Thu04/08/23 at 2100, Until Discontinued Given 04/09/2023 9:03 EDT 800 mg Given 04/08/2023 21:38 EDT 800 mg glucagon injection 1 mg 1 mg, intramuscular, PRN, Starting on Thu04/08/23 at 1242, Until Martha 04/09/23 at 1554, Other, Low blood sugar, Routine insulin aspart U-100 (NOVOLOG FLEXPEN) injection subcutaneous, 3 TIMES DAILY WITH MEALS, First dose on Thu04/08/23 at 1315, Until Discontinued, Routine Given 04/09/2023 9:05 EDT 3 Units lactated ringers BOLUS 1,000 mL 1,000 mL, intravenous, NOW X1, 1 dose, On Thu04/08/23 at 0230, Routine New Bag 04/08/2023 2:41 EDT 1,000 mL lidocaine (PF) 10 mg/mL (1 %) injection 2 mg 2 mg, intradermal, PRN, 4 doses, Starting on Thu04/08/23 at 0025, Until Thu04/09/23 at 1554, peripheral intravenous catheter placement, Routine metoprolol TARtrate (LOPRESSOR) tablet 50 mg 50 mg, oral, 2 TIMES DAILY, First dose on Thu04/08/23 at 2100, Until Discontinued, Routine Given 04/09/2023 9:04 EDT 50 mg Given 04/08/2023 21:38 EDT 50 mg norepinephrine (LEVOPHED) 8 mg in NS 250 mL infusion 2-30 mcg/min (3.75-56.25 mL/hr, rounded to 3.8-56.3 mL/hr), intravenous, CONTINUOUS, Starting on Thu04/08/23 at 0130, Until Thu04/08/23 at 1355, Routine Rate Change-ICU/L&D Only 04/08/2023 1:15 EDT 3 mcg/min 5.6 mL/hr Rate Documented 04/08/2023 1:00 EDT 5 mcg/min 9.4 mL/hr New Bag 04/08/2023 0:00 EDT 5 mcg/min 9.4 mL/hr norepinephrine (LEVOPHED) in NS 32 mcg/mL 250 mL 8 mg/250 mL (32 mcg/mL) infusion solution 1 dose, Starting on Thu04/07/23 at 2349, Until Thu04/08/23 at 0000 pantoprazole (PROTONIX) tablet 40 mg 40 mg, oral, 2 TIMES DAILY, First dose on Thu04/08/23 at 2100, Until Discontinued, Routine Given 04/09/2023 9:04 EDT 40 mg Given 04/08/2023 21:38 EDT 40 mg pramipexole (MIRAPEX) tablet 0.5 mg 0.5 mg, oral, DAILY, First dose on Thu04/09/23 at 0900, Until Discontinued, Routine Given 04/09/2023 9:04 EDT 0. 5 mg pramipexole (MIRAPEX) tablet 1 mg 1 mg, oral, AT BEDTIME, First dose on Thu04/08/23 at 2100, Until Discontinued, Routine Given 04/08/2023 21:39 EDT 1 mg propOFol (DIPRIVAN) 10 mg/mL injection 1 dose, Starting on Thu04/07/23 at 2349, Until Thu04/08/23 at 0000 Given 04/08/2023 0:00 EDT 1,000 mg ranolazine (RANEXA) ER tablet 500 mg 500 mg, oral, 2 TIMES DAILY, First dose on Thu04/08/23 at 2100, Until Discontinued, Routine Given 04/09/2023 9:03 EDT 500 mg Given 04/08/2023 21:38 EDT 500 mg rosuvastatin (CRESTOR) tablet 20 mg 20 mg, oral, DAILY, First dose on Thu04/09/23 at 0900, Until Discontinued, Routine Given 04/09/2023 9:04 EDT 20 mg thiamine (VITAMIN B-1) 100 mg in sodium chloride (NS) 0.9 % 50 mL IVPB 100 mg, intravenous, Administer over 15 Minutes, DAILY, First dose on Thu04/08/23 at 0900, Until Discontinued, Routine Given 04/09/2023 10:58 EDT 100 mg Given 04/08/2023 10:37 EDT 100 mg topiramate (TOPAMAX) tablet 25 mg 25 mg, oral, DAILY, First dose on Thu04/09/23 at 0900, Until Discontinued, Routine Given 04/09/2023 9:04 EDT 25 mg topiramate (TOPAMAX) tablet 50 mg 50 mg, oral, AT BEDTIME, First dose on Thu04/08/23 at 2100, Until Discontinued, Routine Given 04/08/2023 21:38 EDT 5 0 mg documented in this encounter Discontinued Medications Medication Sig Discontinue Reason Start Date End Da te metoprolol (LOPRESSOR) 100 mg tablet Take 100 mg by mouth 2 times daily. Alternate therapy 04/08/2023 aspirin 325 mg tablet Take 325 mg by mouth daily 04/08/2023 DILTiazem (TIAZAC) 240 mg SR capsule Take 120 mg by mouth daily 04/09/2023 furosemide (LASIX) 20 mg tablet Take 20 mg by mouth daily as needed. 04/09/2023 isosorbide mononitrate (IMDUR) 120 mg CR tablet Take 120 mg by mouth daily. 04/09/2023 LEVALBUTEROL HCL INHALATION Inhale as directed. 04/09/2023 magnesium oxide (MAG-OX) 400 mg tablet Take 400 mg by mouth 2 times daily. 04/09/2023 clopidogrel (PLAVIX) 75 mg tablet Take 1 Tab by mouth daily. 02/16/2014 04/09/2023 documented as of this encounter Historical Medications * This list may reflect changes made after this encounter. Medication Sig Dispensed Refills Start Date End Date pramipexole (MIRAPEX) 0.5 mg tablet Take 1 Tablet by mouth SEE ADMIN INSTRUCTIONS. Patient takes one 0.5 mg tablet in the morning and two 0.5 mg tablets at night metoprolol SUCCinate (TOPROL-XL) 200 mg tablet Take 1 Tablet by mouth daily. isosorbide MONOnitrate (IMDUR) 30 mg CR tablet Take 1 Tablet by mouth daily. aspirin 81 mg capsule Take 81 mg by mouth daily. topiramate (TOPAMAX) 25 mg tablet Take 1 Tablet by mouth SEE ADMIN INSTRUCTIONS. One 25 mg tablet in the morning and two 25 mg tablets at night pregabalin (LYRICA) 50 mg capsule Take 1 Capsule by mouth 3 times daily. Daily Max: 150 mg added in this encounter Active and Recently Administered Medications Times are shown in EDT. Scheduled Medication Order 04/07/2023 04/08/2023 04/09/2023 acetaminophen (OFIRMEV) IV solution 1,000 mg (COMPLETED) 1,000 mg, intravenous, NOW X1, 1 dose, On Thu04/08/23 at 0400, Is the patient NPO? If No, state reason why oral acetaminophen cannot be used in Comment field. Yes, Is this patient nothing by rectum? If No, state why rectal acetaminophen cannot be used in the Comment field. Yes, Are NSAIDs contraindicated in this patient? Yes, Is the patient in ED, PACU or ICU? Yes, Routine 429 (Given - Provider: Leigha Welsh RN) aspirin chewable tablet 81 mg 81 mg, oral, DAILY, First dose on Thu04/09/23 at 0900, Until Discontinued 903 (Given - Provid er: Aiyana Almonte RN) buPROPion (WELLBUTRIN SR) SR tablet 150 mg 150 mg, oral, 2 TIMES DAILY, First dose on Thu04/08/23 at 2100, Until Discontinued, Routine 2137 (Given - Provider: Airam Brown, VERO) 902 (Given - Provider: Aiyana Almonte, RN) DULoxetine (CYMBALTA) delayed release capsule 60 mg 60 mg, oral, 2 TIMES DAILY, First dose on Thu04/08/23 at 2100, Until Discontinued, Routine 2137 (Given - Provider: Airam Brown, VERO) 903 (Given - Provider: Aiyana Almonte, VERO) famotidine (PEPCID) injection 20 mg (CANCELED)(Linked Group 1) 20 mg, intravenous, 2 TIMES DAILY, First dose on Thu04/08/23 at 0900, Until Discontinued, Routine 955 (Given - Provider: Katarzyna Young RN) folic acid 1 mg in sodium chloride (NS) 0.9 % 50 mL IVPB 1 mg, intravenous, Administer over 30 Minutes, DAILY, First dose on Thu04/08/23 at 0900, Until Discontinued, Routine 1112 (Given - Provider: Katarzyna Young RN) 1058 (Given - Provider: Aiyana Almonte, VERO) gabapentin (NEURONTIN) capsule 800 mg 800 mg, oral, 2 TIMES DAILY, First dose (after last modification) on Thu04/08/23 at 2100, Until Discontinued 2137 (Given - Provider: Airam Brown RN) 09 (Given - Provider: Aiyana Almonte, VERO) insulin aspart U-100 (NOVOLOG FLEXPEN) injection subcutaneous, 3 TIMES DAILY WITH MEALS, First dose on Thu04/08/23 at 1315, Until Discontinued, Routine 1330 (Not Given - Provider: Katarzyna Young RN - Reason: Order parameters not met - Comment: [phone] (Not Given - Provider: Katarzyna Young RN - Reason: Order parameters not met) 0905 (Given - Provider: Aiyana Almonte RN)1311 (Not Given - Provider: Aiyana Almonte RN - Reason: Other - Comment: discharged) lactated ringers BOLUS 1,000 mL (COMPLETED) 1,000 mL, intravenous, NOW X1, 1 dose, On Thu04/08/23 at 0230, Routine 0241 (New Bag - Provider: Leigha Welsh RN) metoprolol TARtrate (LOPRESSOR) tablet 50 mg 50 mg, oral, 2 TIMES DAILY, First dose on Thu04/08/23 at 2100, Until Discontinued, Routine 2137 (Given - Provider: Airam Brown RN) 09 (Given - Provider: Aiyana Almonte, VERO) pantoprazole (PROTONIX) tablet 40 mg 40 mg, oral, 2 TIMES DAILY, First dose on Thu04/08/23 at 2100, Until Discontinued, Routine 2137 (Given - Provider: Airam Brown RN) 09 (Given - Provider: Aiyana Almonte, VERO) pramipexole (MIRAPEX) tablet 0.5 mg 0.5 mg, oral, DAILY, First dose on Martha 04/09/23 at 0900, Until Discontinued, Routine 903 (Given - Provid er: Aiyana Almonte RN) pramipexole (MIRAPEX) tablet 1 mg 1 mg, oral, AT BEDTIME, First dose on Thu04/08/23 at 2100, Until Discontinued, Routine 2138 (Given - Provider: Airam Brown RN) ranolazine (RANEXA) ER tablet 500 mg 500 mg, oral, 2 TIMES DAILY, First dose on Thu04/08/23 at 2100, Until Discontinued, Routine 2137 (Given - Provider: Airam Brown RN) 0903 (Given - Provider: Aiyana Almonte RN) rosuvastatin (CRESTOR) tablet 20 mg 20 mg, oral, DAILY, First dose on Thu04/09/23 at 0900, Until Discontinued, Routine 903 (Given - Provid er: Aiyana Almonte RN) thiamine (VITAMIN B-1) 100 mg in sodium chloride (NS) 0.9 % 50 mL IVPB 100 mg, intravenous, Administer over 15 Minutes, DAILY, First dose on Thu04/08/23 at 0900, Until Discontinued, Routine 1037 (Given - Provider: Katarzyna Young RN) 1058 (Given - Provider: Aiyana Almonte RN) topiramate (TOPAMAX) tablet 25 mg 25 mg, oral, DAILY, First dose on Thu04/09/23 at 0900, Until Discontinued, Routine 903 (Given - Provid er: Aiyana Almonte RN) topiramate (TOPAMAX) tablet 50 mg 50 mg, oral, AT BEDTIME, First dose on Thu04/08/23 at 2100, Until Discontinued, Routine 2137 (Given - Provider: Airam Brown RN) Continuous Medication Order 04/07/2023 04/08/2023 04/09/2023 norepinephrine (LEVOPHED) 8 mg in NS 250 mL infusion (CANCELED) 2-30 mcg/min (3.75-56.25 mL/hr, rounded to 3.8-56.3 mL/hr), intravenous, CONTINUOUS, Starting on Thu04/08/23 at 0130, Until Thu04/08/23 at 1355, Routine 0000 (New Bag - Provider: Leigha Welsh RN)0100 (Rate Documented - Provider: Leigha Welsh RN)0115 (Rate Change-ICU/L&D Only - Provider: Leigha Welsh RN)0200 (Paused - Provider: Leigha Welsh RN) PRN Medication Order 04/07/2023 04/08/2023 04/09/2023 acetaminophen (TYLENOL) tablet 650 mg 650 mg, oral, EVERY 6 HOURS PRN, Starting on Thu04/08/23 at 1030, Until Thu04/09/23 at 1554, Pain, Routine dextrose 50 % solution 12.5 g 12.5 g (25 mL), intravenous, PRN, Starting on Thu04/08/23 at 1242, Until Thu04/09/23 at 1554, Low Blood Sugar, Routine glucagon injection 1 mg 1 mg, intramuscular, PRN, Starting on Thu04/08/23 at 1242, Until Thu04/09/23 at 1554, Other, Low blood sugar, Routine lidocaine (PF) 10 mg/mL (1 %) injection 2 mg 2 mg, intradermal, PRN, 4 doses, Starting on Thu04/08/23 at 0025, Until Thu04/09/23 at 1554, peripheral intravenous catheter placement, Routine No Frequency Medication Order 04/07/2023 04/08/2023 04/09/2023 propOFol (DIPRIVAN) 10 mg/mL injection (COMPLETED) 1 dose, Starting on Thu04/07/23 at 2349, Until Thu04/08/23 at 0000 0000 (Given - Provider: Gage Welsh RN)0015 (Completed - Provider: Leigha Welsh RN) Linked Groups Order Group 1: famotidine (PEPCID) tablet 20 mg (CANCELED) 20 mg, oral, 2 TIMES DAILY, First dose on Thu04/08/23 at 0900, Until Discontinued, Routine Or famotidine (PEPCID) injection 20 mg (CANCELED)Jump to med 20 mg, intravenous, 2 TIMES DAILY, First dose on Thu04/08/23 at 0900, Until Discontinued, Routine documented in this encounter Orders Medications Ordered That Nuno ht Not Have Been Administered Count Last Ordered Date First Ordered Date acetaminophen (TYLENOL) tablet 650 mg 1 dextrose 50 % solution 12.5 g 1 04/08/2023 famotidine (PEPCID) tablet 20 mg 1 04/08/20 gabapentin (NEURONTIN) capsule 800 mg 1 glucagon injection 1 mg 1 04/08/2023 lidocaine (PF) 10 mg/mL (1 % ) injection 2 mg 1 04/08/2023 pramipexole (MIRAPEX) tablet 0.25 mg 1 03/24 pregabalin (LYRICA) capsule 50 mg 1 023 topiramate (TOPAMAX) tablet 25 mg 1 023 Diet Count Last Ordered Date First Orde red Date DISCHARGE DIET 1 04/09/2023 Nursing Count Last Ordered Date First Orde red Date ACTIVITY INSTRUCTIONS 1 04/09/2023 BATHING INSTRUCTIONS 1 04/09/2023 DRIVING INSTRUCTIONS 1 04/09/2023 VTE PHARMACOLOGIC PROPHYLAXI S CURRENTLY ORDERED OR ON ALTERNATIVE THER 1 04/08/2023 Respiratory Care Count Last Ordered Date First Ordered Date EXTUBATION 1 04/08/2023 Admission Count Last Ordered Date First Orde red Date ADMIT TO INPATIENT 1 04/08/2023 Transfer Count Last Ordered Date First Orde red Date MICU BED REQUEST (TO REQUEST NON-ICU BED) 1 04/08/2023 Discharge Count Last Ordered Date First Orde red Date DISCHARGE PATIENT 1 04/09/2023 Legal Count Last Ordered Date First Orde red Date MISCELLANEOUS DISCHARGE INSTRUCTIONS 03/24 documented in this encounter Care Teams Safety Companion Relationship Specialty Start Date End Date Coni Lim MD [address] [place] [address] PCP - General 12/17/11 documented as of this encounter
--- OUTSIDE RECORDS SUMMARY | 2024-04-30 13:44 | XMS_ITS | Encounter Summary ---
Author Organization [facility] Address [address] [place] [address] Care Team Providers Care Controller Operations And Hr Manager Name Role Phone Coni Lim MD Primary Care Provider [phone] Reason for Visit * (Routine/Next Available) - Receiving Office to Obtain Authorization Specialty Diagnoses / Procedures Referred By Contac t Referred To Contact Procedures CT OUTSIDE IMAGES HEAD AND NECK Unknown, Provider, Referral ID Status Reason Start Date Expiration Date Visits Requested Visits Authorized [id number] Receiving Office to Obtain Authorization 04/07/2023 1 1 Encounter Details Date Type Department Care Team (Latest Contact Info) Description 04/07/2023 20:14 EDT - 04/07/2023 23:44 EDT Hospital Encounter [facility] Secondary Reads [place] Discharge Disposition: Home or Self Care Social [...] No 03/15/2015 documented as of this encounter Medications at [...] and two 25 mg tablets at night aspirin 325 mg tablet Take 325 mg by mouth daily 04/08/2023 clopidogrel (PLAVIX) 75 mg tablet Take 1 Tab by mouth daily. 30 Tab 11 02/16/2014 04/09/2023 DILTiazem (TIAZAC) 240 mg SR capsule Take 120 mg by mouth daily 04/09/2023 furosemide (LASIX) 20 mg tablet Take 20 mg by mouth daily as needed. 04/09/2023 isosorbide mononitrate (IMDUR) 120 mg CR tablet Take 120 mg by mouth daily. 04/09/2023 LEVALBUTEROL HCL INHALATION Inhale as directed. 04/09/20 magnesium oxide (MAG-OX) 400 mg tablet Take 400 mg by mouth 2 times daily. 04/09/2023 metoprolol (LOPRESSOR) 100 mg tablet Take 100 mg by mouth 2 times daily. 04/08/2023 documented as of this encounter Discharge Disposition Disposition Code Departure Means Destination Home or Self Care documented in this encounter Plan of Treatment Not on file documented as of this encounter Procedures Procedure Name Priority Date/Time Associated Diagnosis Comments CT OUTSIDE IMAGES HEAD AND NECK Routine 04/07/2023 20:18 EDT documented in this encounter Results * CT OUTSIDE IMAGES HEAD AND NECK (04/07/2023 20:18 EDT) Narrative 04/07/2023 20:18 EDT This is a non-reportable exam. Provider Unknown MD DAVIES OTHER IMAGING OR DERABLES documented in this encounter Visit Diagnoses Not on filedocumented in this encounter Care Teams Controller Operations And Hr Manager Relationship Specialty Start Date End Date Coni Lim MD [address] [place] [id number] PCP - General 12/17/11 documented as of this encounter
--- OUTSIDE RECORDS SUMMARY | 2024-04-30 13:44 | XMS_ITS | Encounter Summary ---
Author Organization [facility] Address [address] [place] [address] Care Team Providers Care Manager Recruitment Name Role Phone Coni Lim MD Primary Care Provider [phone] Encounter Details Date Type Department Care Team (Latest Contact Info) Description 04/07/2023 Travel Social History Tobacco Use Types Packs/Day Years [...] on filedocumented in this encounter Care Teams Manager Recruitment Relationship Specialty Start Date End Date Coni Lim MD [address] [place] [id number] PCP - General 12/17/11 documented as of this encounter
--- OUTSIDE RECORDS SUMMARY | 2024-04-30 13:44 | XMS_ITS | Encounter Summary ---
Author Organization [facility] Address [address] [place] [address] Care Team Providers Care Malt House Supervisor Name Role Phone Coni Lim MD Primary Care Provider [phone] Reason for Visit * (Routine/Next Available) - Receiving Office to Obtain Authorization Specialty Diagnoses / Procedures Referred By Contsigifredo t Referred To Contact Procedures CT OUTSIDE IMAGES CHEST ABDOMEN PELVIS Unknown, Provider, Referral ID Status Reason Start Date Expiration Date Visits Requested Visits Authorized [id number] Receiving Office to Obtain Authorization 04/07/2023 1 1 Encounter Details Date Type Department Care Team (Latest Contact Info) Description 04/07/2023 20:11 EDT - 04/07/2023 20:13 EDT Hospital Encounter [facility] Secondary Reads [place] Discharge Disposition: Home [...] Date/Time Associated Diagnosis Comments CT OUTSIDE IMAGES CHEST ABDOMEN PELVIS Routine 04/07/2023 20:18 EDT documented in this encounter Results * CT OUTSIDE IMAGES CHEST ABDOMEN PELVIS (04/07/2023 20:18 EDT) Narrative 04/07/2023 20:18 EDT This is a non-reportable exam. Provider Unknown MD DAVIES OTHER IMAGING OR DERABLES documented in this encounter Visit Diagnoses Not on filedocumented in this encounter Care Teams Malt House Supervisor Relationship Specialty Start Date End Date Coni Lim MD [address] [place] [id number] PCP - General 12/17/11 documented as of this encounter
--- OUTSIDE RECORDS SUMMARY | 2024-04-30 13:44 | XMS_ITS | Encounter Summary ---
Author Organization [facility] Address [address] [place] [address] Care Team Providers Care Bronc Buster Name Role Phone Coni Lim MD Primary Care Provider [phone] Encounter Details Date Type Department Care Team (Late st Contact Info) Description 01/14/2022 Lab Requisition [facility] Pathology & Laboratory Medicine - [facility] [address] [place] [address] Kevin Landaverde MD [address] [place] [id number] Encounter for other general examination Social History Tobacco Use Types Packs/Day Years [...] Procedure Name Priority Date/Time Associated Diagnosis Comments NON BELLY PACKER/FNA CYTOLOGY Today 01/13/2022 8:35 EDT Encounter for other general examination documented in this encounter Results * NON BELLY PACKER/FNA CYTOLOGY (01/13/2022 8:35 EDT) Note to Patient The following pathology results have been interpreted by your pathologist and may be available to you before your health provider has had the opportunity to review them. Please allow time for your provider to receive these results and explore management options, if applicable. 01/15/2022 12:10 [facility] Final Diagnosis THYROID, RIGHT LOBE, NODULE, ULTRASOUND-GUIDE D FINE NEEDLE ASPIRATION: - Non-diagnostic aspirate. See comment. 01/15/2022 12:10 [facility] Diagnosis Comment Smears are pauci-cellular and consist of rare clusters of follicular cells, some with air drying artifact and others forming micro-follicles in an obscuring bloody background. Due to the profoundly scant cellular content. A definitive diagnosis can not be rendered. Recommend re-aspiration of the lesion in 6 to 8 weeks with collection for Afirma molecular testing as clinically indicated. 01/15/2022 12:10 [facility] Attestation There was significant resident/fellow involvement in the diagnostic evaluation of this case. By the signature below, the attending physician certifies that they have personally conducted a gross and/or microscopic examination of the described specimens and rendered or confirmed the above diagnosis. 01/15/2022 12:10 [facility] at 1210 Rapid Diagnosis THYROID, RIGHT LOBE, NODULE, ULTRASOUND GUIDED FINE NEEDLE ASPIRATION: Evaluation episode #1: Pass 1: Colloid and rare groups of follicular cells. Evaluation episode #2: Pass 2: Inadequate follicular cells, predominantly blood. Pass 3: Smears prepared on site with CytoLyt rise. No rapid evaluation. Pass 4: Specimen put into CytoLyt only. Dr. Tj Melgar 01/13/2022 8:35 AM The above rapid on site evaluation was performed by Dr. Melgar assisting Dr. Landaverde at [facility] on 01/13/22. 01/15/2022 12:10 EDT [facility] Clinical History Right thyroid nodule 01/15/2022 12:10 EDT [facility] Gross Description A. 8 fixed prepared slides, 1 air dried prepared slide, and 1 tube of CytoLyt were received and processed by selective cellular enhancement technique. 01/15/2022 12:10 EDT [facility] Resident/Brent w: Daniel Christensen DO 01/15/2022 12:10 EDT [facility] Performing Lab [facility] 01/15/2022 12:10 EDT [facility] Scanned Images 01/15/2022 12:10 EDT [facility] Fine Needle Aspirate ENTIRE RIGHT LOBE OF THYROID GLAND / Unknown 01/13/2022 8:35 EDT 01/14/2022 6:34 EDT Kevin Landaverde MD PATHOLOGY ORDERABLES [facility] [address] [place] [address] documented in this encounter Visit Diagnoses Diagnosis Encounter for other general examination documented in this encounter Care Teams Bronc Buster Relationship Specialty Start Date End Date Coni Lim MD [address] [place] [address] PCP - General 12/17/11 documented as of this encounter
--- OUTSIDE RECORDS SUMMARY | 2024-04-30 13:44 | XMS_ITS | Encounter Summary ---
Author Organization [facility] Address [address] [place] [address] Care Team Providers Care Skydiving Instructor Name Role Phone Coni Lim MD Primary Care Provider [phone] Encounter Details Date Type Department Care Team (Late st Contact Info) Description 05/17/2022 Lab Requisition [facility] Pathology & Laboratory Medicine - [facility] [address] [place] [address] Outr Resulting Lab, Provider Social History Tobacco Use Types Packs/Day Years [...] Procedure Name Priority Date/Time Associated Diagnosis Comments RHEUMATOID FACTOR Routine 05/16/2022 12: 56 EDT ANTI NUCLEAR AB (BERRY), IFA Routine 05/16/2022 12:56 EDT documented in this encounter Results * RHEUMATOID FACTOR (05/16/2022 12:56 EDT) Rheumatoid Factor <8.6 <12.0 IU/mL 05/18/2022 15:59 EDT [facility] Blood VENOUS BLOOD / Unknown 05/16/2022 12:56 EDT 05/18/2022 15:42 EDT Provider Outr Resulting Lab CHEMISTRY & BLOOD GAS ORDERABLES Performing Organization Address [facility] Co de Phone Number [facility] [address] [place] [address] * ANTI NUCLEAR AB (BERRY), IFA (05/16/2022 12:56 EDT) BERRY Interpretation Negative Negative 2021 13:48 EDT [facility] Comment:No titer performed, BERRY Screen is negative. Blood VENOUS BLOOD / Unknown 05/16/2022 12:56 EDT 05/18/2022 15:42 EDT Narrative [facility] - 05/19/2022 13:48 EDT Results were obtained with the INOVA NOVA Lite HEp-2 BERRY Kit by indirect immunofluorescence. Provider Outr Resulting Lab IMMUNOLOGY A ND SEROLOGY ORDERABLES Performing Organization Address [facility]/ZIP Co de Phone Number [facility] [address] [place] [address] documented in this encounter Visit Diagnoses Not on filedocumented in this encounter Care Teams Skydiving Instructor Relationship Specialty Start Date End Date Coni Lim MD [address] [place] [address] PCP - General 12/17/11 documented as of this encounter
--- OUTSIDE RECORDS SUMMARY | 2024-04-30 13:44 | XMS_ITS | Encounter Summary ---
Author Organization [facility] Address [address] [place] [address] Care Team Providers Care It Security Analyst Name Role Phone Coni Lim MD Primary Care Provider [phone] Reason for Visit * (Routine/Next Available) - Receiving Office to Obtain Authorization Specialty Diagnoses / Procedures Referred By Contac t Referred To Contact Procedures XR OUTSIDE IMAGES CHEST Unknown, Provider, Referral ID Status Reason Start Date Expiration Date Visits Requested Visits Authorized [id number] Receiving Office to Obtain Authorization 04/07/2023 1 1 Encounter Details Date Type Department Care Team (Latest Contact Info) Description 04/07/2023 20:10 EDT Hospital Encounter [facility] Secondary Reads [place] Discharge Disposition: Home [...] Procedure Name Priority Date/Time Associated Diagnosis Comments XR OUTSIDE IMAGES CHEST Routine 04/07/2023 20:17 EDT documented in this encounter Results * XR OUTSIDE IMAGES CHEST (04/07/2023 20:17 EDT) Narrative 04/07/2023 20:17 EDT This is a non-reportable exam. Provider Unknown MD DAVIES OTHER IMAGING OR DERABLES documented in this encounter Visit Diagnoses Not on filedocumented in this encounter Care Teams It Security Analyst Relationship Specialty Start Date End Date Coni Lim MD [address] [place] [address] PCP - General 12/17/11 documented as of this encounter
--- OUTSIDE RECORDS SUMMARY | 2024-04-30 13:44 | XMS_ITS | Encounter Summary ---
[place] [address] Care Team Providers Care Marketing Program Coordinator Name Role Phone Coni Lim MD Primary Care Provider [phone] Encounter Details Date Type Department Care Team (Late st Contact Info) Description 05/28/2012 Telephone Cardiology at [address] [id number] Savanah Duncan LPN Social History Tobacco Use Types Packs/Day Years Used Date Smoking Tobacco: Never Assessed Sex and Gender Information Value Date Recorded Sex Assigned at Not on file Gender Identity Not on file Sexual Orientation Not on file documented as of this encounter Miscellaneous Notes * Telephone Encounter - Savanah Duncan LPN - 05/28/2012 4:04 PM EDT Pre Cardiac Cath/PTCA Nursing Note Date of Cath:__06/03/12 Indication: chest pain Date of Labs:(within 30 days)____work up to be done in [facility] 05/28/12 Date of EKG: work up on 05/28/12 in [facility] Medications:verified. Stop Metformin 48 hour prior ( yes ) Last dose__last dose 05/31/12 evening Insulin orders given__na Stop Coumadin __na___days prior ( )Last dose Does patient have a contrast or shellfish allergy? __persantine____ If yes, was Prednisone RX given?__no Back Pain management:yes, has had previous cath Understands potential for back pain.(yes ) Identifies pain management strategies. (yes ) Teach 0-10 pain intensity scale. ( yes) Education:phone teaching done on 05/28/12 Patient understands purpose of cardiac cath/PTCA. (yes ) Patient understands pre and post procedure care. ( yes ) Patient receives SDP pre-procedure instruction card. (no ) Comments: Pt. Encouraged to call , with any further questions or concerns. Unable to provide, last lab and ekg dates. Information not yet available from [facility]. documented in this encounter Plan of Treatment Not on file documented as of this encounter Visit Diagnoses Not on filedocumented in this encounter Care Teams Marketing Program Coordinator Relationship Specialty Start Date End Date Coni Lim MD [address] [place] [address] PCP - General 07/16/10 documented as of this encounter
--- OUTSIDE RECORDS SUMMARY | 2024-04-30 13:44 | XMS_ITS | Encounter Summary ---
Author Organization [facility] Address [address] [place] [address] Care Team Providers Care Racing Board Marker Name Role Phone Coni Lim MD Primary Care Provider [phone] Reason for Visit * (Routine/Next Available) - Receiving Office to Obtain Authorization Specialty Diagnoses / Procedures Referred By Contac t Referred To Contact Procedures CT OUTSIDE IMAGES CERVICAL SPINE Unknown, Provider, Referral ID Status Reason Start Date Expiration Date Visits Requested Visits Authorized [id number] Receiving Office to Obtain Authorization 04/07/2023 1 1 Encounter Details Date Type Department Care Team (Latest Contact Info) Description 04/07/2023 20:11 EDT - 04/07/2023 20:13 EDT Hospital Encounter [facility] Secondary Reads [place] Discharge Disposition: Home [...] Date/Time Associated Diagnosis Comments CT OUTSIDE IMAGES CERVICAL SPINE Routine 04/07/2023 20:18 EDT documented in this encounter Results * CT OUTSIDE IMAGES CERVICAL SPINE (04/07/2023 20:18 EDT) Narrative 04/07/2023 20:18 EDT This is a non-reportable exam. Provider Unknown MD DAVIES OTHER IMAGING OR DERABLES documented in this encounter Visit Diagnoses Not on filedocumented in this encounter Care Teams Racing Board Marker Relationship Specialty Start Date End Date Coni Lim MD [address] [place] [id number] PCP - General 12/17/11 documented as of this encounter
--- OUTSIDE RECORDS SUMMARY | 2024-04-30 13:44 | XMS_ITS | Encounter Summary ---
Author Organization [facility] Address [facility] [place] [address] Care Team Providers Care Kitchen And Counter Worker Name Role Phone Sarita Lim MD Primary Care Provider Encounter Details Date Type Department Care Team (Late st Contact Info) Description 06/03/2012 9:55 AM EDT - 06/03/2012 10:55 AM EDT [place] [id number] Kathie Cotter MD [facility] [place] [address] CARDIAC CATHETERIZATION Social History Tobacco Use Types [...] Sign Reading Time Taken Comments Blood Pressure 111/76 06/03/2012 10:39 AM EDT Pulse 89 06/03/2012 10:39 AM EDT Temperature 36.5 ??C (97.7 ??F) 06/03/2012 10:39 AM E DT Respiratory Rate 16 06/03/2012 10:39 AM EDT Oxygen Saturation 97% 06/03/2012 10:39 AM EDT Inhaled Oxygen Concentration - - [...] appointments: During 8am-5pm Thursday through Thursday call [phone] to speak with a nurse in the cardiology clinic All other times call [phone] and ask to speak to the whiskey filterer home health clinical liaison. Return to work: One week Driving: No driving for 48 hours after catheterization. Follow up Appointments: PCP: SARITA LIM MD , Call for appointment in 1-2 weeks. Cattle Examiner: Dr Leyva, You should be seen in 3-4 weeks for follow up. Please call for appointment * Attachments The following attachments cannot be sent through Care Everywhere. * PERCUTANEOUS CORONARY INTERVENTION: WHAT TO EXPECT AT HOME (ECUADOREAN) * CHEST PAIN (ANGINA): AFTER YOUR VISIT (ECUADOREAN) documented in this encounter Medications at Time [...] Day Note Patient Name: Romeo Coe Service: PCI Team Responsible Attending: Dr. Cotter [...] NSR Meds: Current facility-administered medications ordered in [facility] Medication Dose Route Frequency Provider Last Rate [...] MD Last Dose: 12.5 mg at 06/03/12 1940 ??? simvastatin (ZOCOR) tablet 40 mg 40 mg Oral Nightly Bryan Stephen MD Last Dose: 40 mg at 06/03/12 194 ??? sodium chloride 0.9% infusion 100 mL/hr [...] 10 mg/mL (1 %) injection Once PRN Kathei Cotter MD Last Dose: 100 mg at [...] in sodium chloride 0.9% 50 mL infusion (WAREHOUSE SPECIALIST) Intravenous Continuous PRN Kathie Cotter MD Last Dose: 194.3 mg/hr at 06/03/12 1509 ??? DISCONTD: adenosine 90 mg in sodium chloride 0.9% 90 mL infusion (WAREHOUSE SPECIALIST) Intravenous Continuous PRN Kathie Cotter MD Last [...] Nitroglycerin Yes Assessment: Romeo Coe is a 46 y.o. male PMH remarkable [...] Smoker ??? CAD (coronary artery disease), non-obstructive C 2009 post abnormal nuc stress +IW, EF [...] EDT Cardiology Admission H&P Patient Name: Romeo Coe Date of : 1965 Age: 46 y.o. Hospital Admit Date: 06/03/2012 Inpatient Attending: Dr Cotter PCP: SARITA LIM MD Presenting Diagnosis/Chief Complaint: CP Active Problem [...] mellitus) ??? CAD (coronary artery disease), non-obstructive C 2009 post abnormal nuc stress +IW, EF normal Arthritis (neck, shoulder) Fibromyalgia Surgical History/Problems: R shoulder arthroscopy Significant Family History: Father-, pre-mature CAD (age 46), VT, CABG Uncle +CAD Mother, DM, HTN. HLP [...] Seen by Dr Leyva in March; Referred forLHC today. +JACINDA candidate. 2. HTN, stable, 3. HLP, recent restart of Zocor, follow up with Dr Leyva 4. Smoker, decreased from 2-3 PPD for many years 5. Obese 6. DM, metformin has been held. 7. H/O TIA 8. chronic simona arm pain related to arthritis and fibromyalgia Provider: LENORE HOFFMAN [id number] documented in this encounter Procedure Notes * Provider, Scanning - 06/04/2012 10:04 PM EDTAssociated Order(s): SCAN DOC: FIRE CODE INSPECTOR * Provider, Scanning - 06/03/2012 4:39 PM EDTAssociated Order(s): CARDIAC CATHETERIZATION documented in this encounter Miscellaneous Notes * Miscellaneous - Provider, Scanning - 06/04/2012 10:21 PM EDT * Miscellaneous - Provider, Scanning - 06/04/2012 10:04 PM EDT * Consult Note - Zunilda Fletcher RN - 06/04/2012 9:26 AM EDT Rmoeo Coe was seen today by Cardiac Rehabilitation [...] to the outpatient cardiac rehabilitation program at [facility] was discussed. A referral will be sent to the program and the patient will be contacted within 2 weeks. * Discharge Summary - Bryan Stephen MD - 06/03/2012 4:54 PM EDT Inpatient Cardiology - Discharge Summary Patient Name: Romeo Coe Patient Age: 46 y.o. Birthdate: 1965 Admit date: 06/03/2012 Discharge date : 06/04/2012 Attending Physician: Kathie Cotter MD Discharge Diagnoses (Hospital Problems) and Secondary Diagnoses (Chronic Problems): Active Hospital Problems Diagnoses ??? CAD (coronary artery disease), non-obstructive - [facility] 2009 post abnormal nuc stress +IW, EF [...] appointments: During 8am-5pm Thursday through Thursday call [phone] to speak with a nurse in the cardiology clinic All other times call [phone] and ask to speak to the whiskey filterer home health clinical liaison. Return to work: One week Driving: No driving for 48 hours after catheterization. Follow up Appointments: PCP: SARITA LIM MD , Call for appointment in 1-2 weeks. Cattle Examiner: Dr Leyva, You should be seen in 3-4 weeks for follow up. Please call for appointment General Instructions None Future Appointments and Orders Future Appointments: Provider: Department: Dept Phone: Center: 06/04/2012 4:45 PM Echo Inpatient Add-On [facility] Non-Inv Card Lab [phone] None Provider Contact Information: Dr. Kathie Stephen Section of Cardiology [facility] [phone] Discharge References/Attachments: Discharge References/Attachments None Signed: Bryan Stephen MD DATE: 06/04/2012 * Miscellaneous - Provider, Scanning - 06/03/2012 11:02 AM EDT documented in this encounter Plan of Treatment Not on file documented as of this encounter Procedures Procedure Name Priority Date/Time Associated Diagnosis Comments CARDIAC CATHETERIZATION Routine 06/07/20 12 2:15 PM EDT FIRE CODE INSPECTOR SCAN 06/04/2012 10:04 PM EDT ECHOCARDIOGRAM TRANSTHORACIC Routine 06/04/2012 8:57 AM EDT CAD (coronary artery disease), non-obstructive POCT GLUCOSE Routine 06/04/2012 7:06 AM EDT EKG 12-LEAD Routine 06/04/2012 6:07 AM EDT BMP W/FASTING GLUCOSE Routine 06/04/2012 6:05 AM EDT DIFFERENTIAL, AUTOMATED Routine 06/04/20 4:45 AM EDT CARDIAC ENZYMES (MC/CGP) Routine 06/04/2012 4:45 AM EDT CBC (WITH [...] CAD (coronary artery disease), non-obstructive CARDIAC ENZYMES ([facility]/CGP) STAT 06/03/2012 4:00 PM EDT CARDIAC CATHETERIZATION 06/03/20 12 2:02 PM EDT CP POCT GLUCOSE Routine 06/03/2012 11:11 AM EDT documented in this encounter Results * Cardiac Catheterization (06/07/2012 2:15 PM EDT) Anatomical Region Laterality Modality Other Narrative 06/03/2012 4:39 PM EDT Procedure Note Provider, Scanning - 06/03/2012 4:39 PM EDT Kathie Cotter MD CARDIAC CATH ORDERAB LES * SCAN DOC: FIRE CODE INSPECTOR (06/04/2012 10:04 PM EDT) Anatomical Region Laterality Modality Other Narrative 06/06/2012 2:36 AM EDT Procedure Note Provider, Scanning - 06/04/2012 10:04 PM EDT Scanning Provider MEDIA MGR SCAN EXT O RDR/RSLT * Echo Transthoracic (Complete) (06/04/2012 8:57 AM EDT) [facility] EF 60 [employer] SYSTEM Anatomical Region Laterality Modality Other 06/04/2012 Narrative 06/04/2012 9:13 AM EDT Procedure: ? Transthoracic Echocardiogram Patient: ? LAQUITA Pop ?(Age): 1965(46) Med Rec#: ?[id number] ? Sex: ?M ? Site Loc: ?[facility] ? Ht / Wt: ??176(cm)/122(kg) Pt. Loc: ? Adult Floor ?BSA: ?2.44 Study Date: ?06/04/2012 ? Pt. Type: Inpatient Tape: ? Referring: Kathie Cotter Brick Handler: Khoi Gaines [facility] Brick Handler 2: Mason Duron ([id number]) Diagnosis: ??Chest pain (786.50) CPT Code(s): ??Echo Full (21151), ??Spectral Doppler (87788), ??Color Doppler (57696), ??Definity (33787HV), Indication(s): ??Chest Pain Rhythm: HR ?BP 78 [...] ? Mid-Inferior ?Normal ? Mid-Inferoseptal ?Normal ? [place]-Septal ? Normal ? [place]-Anterior ? Normal ? [place]-Lateral ?Normal ? [place]-Inferior ? Normal ? [place]-Tip ?Normal ? Chambers ?Value ?Units (Range) ? [...] 06/04/2012 09:12:51 Images reviewed and interpretation verified [facility] Cardiac Ultrasound Laboratory Procedure Note Christos Buchanan MD - 06/04/2012 Procedure: Transthoracic Echocardiogram Patient: LAQUITA Pop (Age): 1965(46) Med Rec#: [id number] Sex: M Site Loc: [facility] Ht / Wt: 176(cm)/122(kg) Pt. Loc: Adult Floor BSA: 2.44 Study Date: 06/04/2012 Pt. Type: Inpatient Tape: Referring: Kathie Cotter Brick Handler: Khoi Gaines [facility] Brick Handler 2: Mason Duron ([id number]) Diagnosis: Chest pain (786.50) CPT Code(s): Echo Full (86472), Spectral Doppler (24902), Color Doppler (27735), Definity (81089NU), Indication(s): Chest Pain Rhythm: HR BP 78 [...] Normal Mid-Posterolateral Normal Mid-Inferior Normal Mid-Inferoseptal Normal [place]-Septal Normal [place]-Anterior Normal [place]-Lateral Normal [place]-Inferior Normal [place]-Tip Normal Chambers Value Units (Range) LV EF [...] 06/04/2012 09:12:51 Images reviewed and interpretation verified [facility] Cardiac Ultrasound Laboratory Kathie Cotter MD ECHO ORDERABLES * POCT GLUCOSE (06/04/2012 7:06 AM EDT) Pathologist [facility] Glucose, POC 183 60 - 199 mg/dL [facility] Comment: Supplemental ranges: <110 mg/dL before meals <200 mg/dL all other times of the day Blood specimen (specimen) 06/04/2012 7:06 AM EDT 06/04/2012 7:06 AM EDT Ktahie Cotter MD POINT OF CARE TEST O RDERABLES Performing Organization Address City/[facility]/ZIP Co de Phone Number [facility] * EKG 12-LEAD (06/04/2012 6:07 AM EDT) Ventricular rate 77 BPM MUSE SYSTEM Atrial Rate 77 BPM MUSE SYSTEM P-R Interval 150 ms MUSE SYSTEM QRS Duration 92 ms MUSE SYSTEM Q-T Interval 372 ms MUSE SYSTEM QTC Calculated (Bezet) 420 ms MUSE SYSTEM Calculated P [place] 30 degrees MUSE SYSTEM Calculated R [place] 37 degrees MUSE SYSTEM Calculated T [place] 30 degrees MUSE SYSTEM INTERPRETATION Normal sinus rhythm Normal ECG When compared with ECG of 03-JUN-2012 16:38, No significant change was found Confirmed by MD Mirtha, Cali ([id number]) on 06/04/2012 1:38:26 PM MUSE SYSTEM 06/04/2012 6:07 AM EDT 06/04/2012 1:38 PM EDT Unknown ECG ORDERABLES Performing Organization Address City/[facility]/ZIP Co de Phone Number MUSE SYSTEM * (ABNORMAL) BMP w/fasting Glucose (06/04/2012 6:05 AM EDT) [facility] Glucose Fasting 185(H) 65 - 99 mg/dL [...] of Diabetes Mellitus, Position Statement from the [place] Diabetes Association. ??Diabetes Care, Volume 33, Supplement 1, Aug 2009 Blood Urea Nitrogen 10 10 - 20 mg/dL [facility] Creatinine 0.82 0.80 - 1.50 mg/dL [facility] Comment: Please note that the pediatric reference intervals supplied above were not validated at [facility]. Results from pediatric patients should [...] Lab Kathie Cotter MD CHEMISTRY ORDERABLES [facility] * (ABNORMAL) LDL CHOLESTEROL, DIRECT (06/04/2012 4:45 AM EDT) LDL Cholesterol, Direct 108(H) <=99 mg/dL [facility] Comment: The National Cholesterol Education Program (NCEP) has set the following guidelines for LDL Cholesterol: Reference range: ?? Optimal: ?<100 mg/dL ?? Near Optimal/Above Optimal: ?? 100-129 mg/dL ?? Borderline high: ?130-159 mg/dL ?? High: ? 160-189 mg/dL ?? Very high: ?>be=649 mg/dL RACHEL 2001: 285(19):4471-9615 Blood specimen (specimen) 06/04/2012 4:45 AM EDT [...] Gran Absolute 0.02 0.00 - 0.05 x10(3)/mcL [facility] Blood specimen (specimen) 06/04/2012 4:45 AM EDT 06/04/2012 4:55 AM EDT Kathie Cotter MD HEMATOLOGY ORDERABLE S Performing Organization Address [facility] de Phone Number [facility] * Alkaline Phosphatase (06/04/2012 4:45 AM EDT) Alkaline Phosphatase 53 40 - 120 unit/L [facility] Blood specimen (specimen) 06/04/2012 4:45 AM EDT 06/04/2012 4:55 AM EDT Narrative Resulting Agency Comment Spec In Lab Kathie Cotter MD CHEMISTRY ORDERABLES Performing Organization Address [facility] de Phone Number [facility] * Alanine Aminotransferase (06/04/2012 4:45 AM EDT) Alanine Aminotransferase 31 0 - 55 unit/L [facility] Blood specimen (specimen) 06/04/2012 4:45 AM EDT 06/04/2012 4:55 AM EDT Narrative Resulting Agency Comment Spec In Lab Kathie Cotter MD CHEMISTRY ORDERABLES Performing Organization Address [facility] Co de Phone Number [facility] * Aspartate Aminotransferase (06/04/2012 4:45 AM EDT) Aspartate Aminotransferase 31 0 - 39 unit/L [facility] Blood specimen (specimen) 06/04/2012 4:45 AM EDT 06/04/2012 4:55 AM EDT Narrative Resulting Agency Comment Spec In Lab Kathie Cotter MD CHEMISTRY ORDERABLES Performing Organization Address [facility] de Phone Number [facility] * (ABNORMAL) Hemoglobin A1c (06/04/2012 4:45 AM EDT) [facility] Hemoglobin A1c 6.5(H) 4.3 - 6.1 % [facility] Estimated Average Glucose 140 mg/dL [facility] Comment: eAG equivalents for HbA1c percentages: [...] ADA website: ??http://professional.diabetes.org/glucosecalculator.aspx Reference: Ashok PIMENTEL, Abdulkadir J, Jamie R, et al. ??Translating the A1C assay into estimated average glucose values. ??Diabetes Care 2008:31(8):4678-8598. Blood specimen (specimen) 06/04/2012 4:45 AM EDT 06/04/2012 4:55 AM EDT Narrative Resulting Agency Comment Spec In Lab Kathie Cotter MD CHEMISTRY ORDERABLES Performing Organization Address [facility] Co de Phone Number [facility] * (ABNORMAL) Lipid panel (fasting) (06/04/2012 4:45 AM EDT) [facility] Cholesterol, Total 186 <=199 mg/dL [facility] Comment: Recommendations of the NCEP Adult Treatment Panel for the following risk cutoff thresholds for the [place] population: Desirable: <200 mg/dL Borderline High: 200-239 mg/dL High: > or = 240 mg/dL Triglyceride 412(H) <=149 mg/dL [facility] Comment: Reference Range: Normal triglycerides: ??<150 mg/dL Borderline high: ??150-199 mg/dL High: ??200-499 mg/dL Very high: ??>ns=452 mg/dL RACHEL 2001; 285(19):4850-3586 HDL Cholesterol 25(L) >=40 mg/dL [facility] Comment: Reference range: ??Low HDL: ?? < 40 mg/dL ??Normal: ?40-60 mg/dL ??Desirable: > 60 mg/dL RACHEL 2001; 285(19):8171-3109 LDL Cholesterol Not Calculated <=99 mg/dL [facility] Comment: Since a calculated LDL value is not valid for triglycerides greater than 400 mg/dl, a direct LDL determination is performed instead. Reference range: ?? Optimal: ?<100 mg/dL ?? Near Optimal/Above Optimal: ?? 100-129 mg/dL ?? Borderline high: ?130-159 mg/dL ?? High: ? 160-189 mg/dL ?? Very high: ?>zu=553 mg/dL RACHEL 2001: 285(19):2511-9016 Cholesterol/HDL Ratio 7.4 ratio [facility] Comment: A Cholesterol to HDL ratio below 4:1 is desirable. ??Studies suggest that increased CAD risk occurs at ratios above 5 for females and above 6 for men. ? [place] Heart Association ??(http://www.americanheart.org) ? Pallavi Int Med, 1994; 121:641 ? AM J Med, 1998; 105(1A):48S Blood specimen (specimen) 06/04/2012 4:45 AM EDT 06/04/2012 4:55 AM EDT Narrative Resulting Agency Comment Spec In Lab Kathie Cotter MD CHEMISTRY ORDERABLES Performing Organization Address [facility] de Phone Number [facility] * (ABNORMAL) Cardiac Enzymes (06/04/2012 4:45 AM EDT) Troponin-T 0.07(H) <=0.03 ng/mL [facility] Comment: 0.03 ng/mL: Represents the 99th percentile upper reference limit for normals. >0.03 ng/mL: Elevated cardiac troponin T level indicative of myocardial damage. Diagnosis of acute, evolving or recent VT requires a typical rise and gradual fall [...] consensus document of the Joint Society of Cardiology/[place] College of Cardiology Committee for the redefinition of myocardial infarction. Journal of the [place] College of Cardiology 2000; 36: 959-969] Creatine Kinase 150 0 - 200 unit/L [facility] Comment:result rechecked-[facility] Blood specimen (specimen) 06/04/2012 4:45 AM EDT 06/04/2012 4:55 AM EDT Narrative Resulting Agency Comment Spec In Lab Kathie Cotter MD CHEMISTRY ORDERABLES Performing Organization Address [facility] Co de Phone Number [facility] * CBC (with Diff) (06/04/2012 4:45 AM EDT) White Blood Cell 6.4 4.0 - 10.0 x10(3)/mcL [facility] Red Blood Cell 4.78 4.63 - 6.08 x10(6)/mcL [facility] MILLENNIUM Hemoglobin 14.6 13.7 - 17.5 gm/dL [facility] MILLENNIUM Hematocrit 42.7 40.0 - 51.0 % [facility] MILLENNIUM Mean Cell Volume 89.3 79.0 - 92.0 fL [facility]ILLWEST[facility]ENTER[facility] Mean Cell Hemoglobin 30.5 25.6 - 32.2 pg [facility] Mean Cell Hemoglobin Concentration 34.2 32.0 - 36.5 gm/dL [facility] Platelet 154 145 - 370 x10(3)/mcL [facility] RDW Standard Deviation 41.0 35.0 - 46.0 fL [facility] MILLENNIUM RDW coefficient of variation 12.7 10.9 - 14.4 % [facility] MILLWESTERN [facility]ENTERIUM Mean Platelet Volume 10.1 9.0 - 12.0 fL [facility] Blood specimen (specimen) 06/04/2012 4:45 AM EDT 06/04/2012 4:55 AM EDT Narrative Resulting Agency Comment Spec In Lab Kathie Cotter MD HEMATOLOGY ORDERABLE S Performing Organization Address [facility]/ZIP Co de Phone Number [facility] * POCT GLUCOSE (06/03/2012 9:31 PM EDT) Glucose, POC 163 60 - 199 mg/dL [facility] Comment: Supplemental ranges: <110 mg/dL before meals <200 mg/dL all other times of the day Blood specimen (specimen) 06/03/2012 9:31 PM EDT 06/03/2012 9:31 PM EDT Kathie Cotter MD POINT OF CARE TEST O RDERABLES Performing Organization Address City/[facility]/ZIP Co de Phone Number [facility] * POCT GLUCOSE (06/03/2012 6:10 PM EDT) Glucose, POC 97 60 - 199 mg/dL [facility] Comment: Supplemental ranges: <110 mg/dL before meals <200 mg/dL all other times of the day Blood specimen (specimen) 06/03/2012 6:10 PM EDT 06/03/2012 6:10 PM EDT Kathie Cotter MD POINT OF CARE TEST O RDERABLES Performing Organization Address [facility] de Phone Number [facility] * EKG 12 Lead (06/03/2012 4:38 PM EDT) Pathologist [facility] Ventricular rate 74 BPM MUSE SYSTEM Atrial Rate 74 BPM MUSE SYSTEM P-R Interval 150 ms MUSE SYSTEM QRS Duration 92 ms MUSE SYSTEM Q-T Interval 372 ms MUSE SYSTEM QTC Calculated (Bezet) 412 ms MUSE SYSTEM Calculated P [place] 46 degrees MUSE SYSTEM Calculated R [place] 25 degrees MUSE SYSTEM Calculated T [place] 29 degrees MUSE SYSTEM INTERPRETATION Normal sinus rhythm Normal ECG When compared with ECG of 18-JAN-2010 07:42, No significant change was found Confirmed by MD Mirtha, Cali ([id number]) on 06/04/2012 7:52:23 AM MUSE SYSTEM 06/03/2012 4:38 PM EDT 06/04/2012 7:52 AM EDT Kathie Cotter MD ECG ORDERABLES Performing Organization Address [facility] de Phone Number MUSE SYSTEM * Cardiac Enzymes (06/03/2012 4:00 PM EDT) [facility] Troponin-T <0.03 <=0.03 ng/mL [facility] Comment: 0.03 ng/mL: Represents the 99th percentile upper reference limit for normals. >0.03 ng/mL: Elevated cardiac troponin T level indicative of myocardial damage. Diagnosis of acute, evolving or recent VT requires a typical rise and gradual fall [...] consensus document of the Joint Society of Cardiology/[place] College of Cardiology Committee for the redefinition of myocardial infarction. Journal of the [place] College of Cardiology 2000; 36: 959-969] Creatine Kinase 41 0 - 200 unit/L [facility]KEYCHANEL Blood specimen (specimen) 06/03/2012 4:00 PM EDT 06/03/2012 4:12 PM EDT Narrative Resulting Agency Comment Spec In Lab Kathie Cotter MD CHEMISTRY ORDERABLES Performing Organization Address City/[facility]/ZIP Co de Phone Number [facility] * POCT GLUCOSE (06/03/2012 11:11 AM EDT) [facility] Glucose, POC 147 60 - 199 mg/dL [facility] Comment: Supplemental ranges: <110 mg/dL before meals <200 mg/dL all other times of the day Blood specimen (specimen) 06/03/2012 11:11 AM EDT 06/03/2012 11:11 AM EDT Kathie Cotter MD POINT OF CARE TEST O RDERABLES Performing Organization Address [facility] Co de Phone Number [facility] documented in this encounter Visit Diagnoses Not on filedocumented in this encounter Administered Medications Inactive Administered Medications - up to 3 most recent administrations Medication Order MAR Action Action Date Dose Rate Site adenosine 90 mg in sodium chloride 0.9% 90 mL infusion (WAREHOUSE SPECIALIST) Intravenous, CONTINUOUS PRN, Starting on Martha 06/03/12 at 1511, Until Martha 06/03/12 at 1734, Cath (Intra-Procedure), Routine New Bag 06/03/2012 3:11 PM EDT 140 mcg/kg/min 933.2 mL/hr aspirin EC tablet 81 mg 81 mg, Oral, DAILY, First dose on Thu06/04/12 at 0900, Until Discontinued, Routine Given 06/04/2012 8:38 AM EDT 81 mg bivalirudin (ANGIOMAX) 250 mg in sodium chloride 0.9% 50 mL infusion (WAREHOUSE SPECIALIST) Intravenous, CONTINUOUS PRN, Starting on Martha 06/03/12 at 1509, Until Martha 06/03/12 at 1734, Cath (Intra-Procedure), Routine New Bag 06/03/2012 3:09 PM EDT 194.3 mg/hr 38.9 mL/hr bivalirudin (ANGIOMAX) injection ONCE PRN, Starting on Martha 06/03/12 at 1509, Until Martha 06/03/12 at 1734, Intra-Operative (Intra-Procedure), Routine Given 06/03/2012 3:09 PM EDT 83.3 mg diaZEPam (VALIUM) tablet 5 mg 5 [...] 25 mg, Oral, ONCE, 1 dose, On Martha 06/03/12 at 1100, Cath (Day of Procedure), Routine Given 06/03/2012 1:24 PM EDT 25 mg DULoxetine (CYMBALTA) capsule 60 mg 60 mg, Oral, 2 TIMES DAILY, First dose on Martha 06/03/12 at 2100, Until Discontinued, Routine Given 06/04/2012 8:38 AM EDT 60 mg Given 06/03/2012 7:39 PM EDT 60 mg fentaNYL 50mcg/mL injection ONCE PRN, Starting on Martha 06/03/12 at 1430, Until Martha 06/03/12 at 1734, Pain, Intra-Operative (Intra-Procedure), Routine Given 06/03/2012 2:30 PM EDT 2 5 mcg fentaNYL 50mcg/mL injection ONCE PRN, Starting on Martha 06/03/12 at 1535, Until Martha 06/03/12 at 1734, Pain, Cath (Intra-Procedure), Routine Given 06/03/2012 3:35 PM EDT 25 mcg Given 06/03/2012 3:26 PM EDT 25 mcg heparin (porcine) injection ONCE PRN, Starting on Martha 06/03/12 at 1435, Until Martha 06/03/12 at 1734, Cath (Intra-Procedure), Routine Given 06/03/2012 2:35 PM EDT 2,500 Units insulin aspart (NOVOLOG) PEN injection 1-4 Units [...] Given 06/04/2012 8:38 AM EDT 90 mg lidocaine (XYLOCAINE) 10 mg/mL (1 %) injection ONCE PRN, Starting on Thu06/03/12 at 1416, Until Thu06/03/12 at 1734, Cath (Intra-Procedure), Routine Given 06/03/2012 2:16 PM EDT 100 mg metoprolol (LOPRESSOR) tablet 12.5 mg 12.5 mg, Oral, 2 TIMES DAILY, First dose on Thu06/03/12 at 2100, Until Discontinued, Routine Given 06/04/2012 8:38 AM EDT 12.5 mg Given 06/03/2012 7:40 PM EDT 12.5 mg midazolam (VERSED) injection Intravenous, ONCE PRN, Starting on Thu06/03/12 at 1432, Until Thu06/03/12 at 1734, Sleep, Cath (Intra-Procedure), Routine Given 06/03/2012 3:26 PM EDT 1 mg Given 06/03/2012 2:32 PM EDT 1 mg nitroGLYCerin 100 mcg/mL intracoronary dilution ONCE PRN, Starting on Thu06/03/12 at 1543, Until Thu06/03/12 at 1734, Cath (Intra-Procedure), Routine Given 06/03/2012 3:43 PM EDT 150 mcg perflutren lipid microspheres (DEFINITY) injection 0.5 mL 0.5 mL, Intravenous, IMG ONCE PRN, 1 dose, Starting on Thu06/04/12 at 0857, Until Thu06/04/12 at 0858, Other, for enhancement of sub-optimal echo images, Echo Lab (Intra-Procedure), Routine Given 06/04/2012 8:58 AM EDT 0.5 mLs simvastatin (ZOCOR) tablet 40 mg 40 mg, Oral, NIGHTLY, First dose on Martha 06/03/12 at 2100, Until Discontinued Given 06/03/2012 7:41 PM EDT 40 mg sodium chloride 0.9% infusion Intravenous, CONTINUOUS PRN, Starting on Martha 06/03/12 at 1438, Until Thu06/03/12 at 1734, Cath (Intra-Procedure) New Bag 06/03/2012 2:38 PM EDT 250 mL/hr 250 mL/hr sodium chloride 0.9% infusion Intravenous, CONTINUOUS PRN, Starting on Thu06/03/12 at 1528, Until Thu06/03/12 at 1734, Cath (Intra-Procedure) New Bag 06/03/2012 3:28 PM EDT 500 mL/hr sodium chloride 0.9% infusion 100 mL/hr, Intravenous, CONTINUOUS, Starting on Thu06/03/12 at 1645, Until Thu06/04/12 at 0244 Rate/Dose [...] Given 06/04/2012 6:00 AM EDT 90 mg ticagrelor (BRILINTA) tablet Oral, ONCE PRN, Starting on Martha 06/03/12 at 1539, Until Martha 06/03/12 at 1734, After initial loading dose of aspirin (usually 325 mg), use ticagrelor with daily maintenance dose of aspirin of 81 mg, Cath (Intra-Procedure), Routine Given 06/03/2012 3:39 PM EDT 180 mg documented in this encounter Active and [...] Reason: Medication Discontinued)1323 (Given - Provider: Dalia Sanches, VERO) DILTiazem (DILACOR XR) XR capsule 240 mg (CANCELED) 240 mg, Oral, DAILY, First dose on Thu06/04/12 at 0900, Until Discontinued, Routine 1815 (Not Given - Provider: Xin Appiah RN - Reason: Patient/family refused - Comment: Pt took this AM) 0838 (Given - Provider: Jacy Reid RN) diphenhydrAMINE (BENADRYL) capsule 25 mg (COMPLETED) 25 mg, Oral, ONCE, 1 dose, On Martha 06/03/12 at 1100, Cath (Day of Procedure), Routine 1100 (Not Given - Provider: Xin Appiah RN - Reason: Medication Discontinued)1324 (Given - Provider: Dalia Sanches, VERO) DULoxetine (CYMBALTA) capsule 60 mg (CANCELED) 60 mg, Oral, 2 TIMES DAILY, First dose on Martha 06/03/12 at 2100, Until Discontinued, Routine 1939 (Given - Provider: Xin Appiah RN) 0838 (Given - Provider: Jacy Reid RN) insulin aspart (NOVOLOG) PEN injection 1-4 Units (CANCELED) 1-4 Units, Subcutaneous, 4 TIMES DAILY BEFORE MEALS & NIGHTLY, First dose on Martha 06/03/12 at 2100, Until Discontinued, CORRECTION BOLUS Sensitive [...] Appiah RN) 0730 (Given - Provider: Jacy Reid, VERO) isosorbide mononitrate (IMDUR) CR tablet 90 mg [...] on Thu06/03/12 at 2100, Until Discontinued, Routine 194 (Given - Provider: Xin Appiah RN) 0838 (Given - Provider: Jacy Reid RN) simvastatin (ZOCOR) tablet 40 mg (CANCELED) 40 mg, Oral, NIGHTLY, First dose on Thu06/03/12 at 2100, Until Discontinued 194 (Given - Provider: Xin Appiah RN) ticagrelor [...] 0244 1635 (New Bag - Provider: Keeley Kyle, VERO)1748 (Rate/Dose Verify - Provider: Xin Appiah, VERO) 0000 (Rate/Dose Verify - Provider: Niesha Dacosta, VERO)0301 (Stopped - Provider: Niesha Dacosta, VERO) PRN Medication Order 06/02/2012 06/03/2012 06/04/2012 adenosine 90 mg in sodium chloride 0.9% 90 mL infusion (WAREHOUSE SPECIALIST) (CANCELED) Intravenous, CONTINUOUS PRN, Starting on Martha 06/03/12 at 1511, Until Martha 06/03/12 at 1734, Cath (Intra-Procedure), Routine 1511 (New Bag - Provider: Dustin Carlton Jr.)1521 (Stopped - Provider: Tawanda Agarwal, VERO) bivalirudin (ANGIOMAX) 250 mg in sodium chloride 0.9% 50 mL infusion (WAREHOUSE SPECIALIST) (CANCELED) Intravenous, CONTINUOUS PRN, Starting on Martha 06/03/12 at 1509, Until Martha 06/03/12 at 1734, Cath (Intra-Procedure), Routine 1509 (New Bag - Provider: Dustin Carlton Jr.)1550 (Stopped - Provider: Tawanda Agarwal, VERO) bivalirudin (ANGIOMAX) injection (CANCELED) ONCE PRN, Starting on Martha 06/03/12 at 1509, Until Martha 06/03/12 at 1734, Intra-Operative (Intra-Procedure), Routine 1509 (Given - Provider: Josef Mcneil) fentaNYL 50mcg/mL injection (CANCELED) ONCE PRN, Starting on Martha 06/03/12 at 1430, Until Martha 06/03/12 at 1734, Pain, Intra-Operative (Intra-Procedure), Routine 1430 [...] (CANCELED) Intravenous, ONCE PRN, Starting on Martha 06/03/12 at 1432, Until Martha 06/03/12 at 1734, Sleep, Cath (Intra-Procedure), Routine 1432 [...] MD) documented in this encounter Care Teams Kitchen And Counter Worker Relationship Specialty Start Date End Date Sarita Lim MD [address] [place] [address] PCP - General 07/16/10 documented as of this encounter
--- OUTSIDE RECORDS SUMMARY | 2024-04-30 13:44 | XMS_ITS | Encounter Summary ---
Author Organization [facility] Address [address] [place] [address] Care Team Providers Care Service Station Manager Name Role Phone Coni Lim MD Primary Care Provider [phone] Reason for Visit * (Routine/Next Available) - Receiving Office to Obtain Authorization Specialty Diagnoses / Procedures Referred By Contsigifredo t Referred To Contact Procedures CT OUTSIDE IMAGES HEAD Unknown, Provider, Referral ID Status Reason Start Date Expiration Date Visits Requested Visits Authorized [id number] Receiving Office to Obtain Authorization 04/07/2023 1 1 Encounter Details Date Type Department Care Team (Latest Contact Info) Description 04/07/2023 20:10 EDT Hospital Encounter [facility] Secondary Reads [place] Discharge Disposition: Home [...] Associated Diagnosis Comments CT OUTSIDE IMAGES HEAD Routine 04/07/2023 20:17 EDT documented in this encounter Results * CT OUTSIDE IMAGES HEAD (04/07/2023 20:17 EDT) Narrative 04/07/2023 20:17 EDT This is a non-reportable exam. Provider Unknown MD DAVIES OTHER IMAGING OR DERABLES documented in this encounter Visit Diagnoses Not on filedocumented in this encounter Care Teams Service Station Manager Relationship Specialty Start Date End Date Coni Lim MD [address] [place] [address] PCP - General 12/17/11 documented as of this encounter
--- OUTSIDE RECORDS SUMMARY | 2024-04-30 13:44 | XMS_ITS | Encounter Summary ---
Author Organization [facility] Address [address] [place] [address] Care Team Providers Care Java Solutions Architect Name Role Phone Coni Lim MD Primary Care Provider [phone] Encounter Details Date Type Department Care Team (Late st Contact Info) Description 01/28/[address] [facility] [phone] Romi Montanez MD [address] [place] [phone] Social History Tobacco Use Types Packs/Day Years [...] Priority Date/Time Associated Diagnosis Comments SURGICAL PATHOLOGY Routine 01/28/2016 8:56 EDT documented in this encounter Results * SURGICAL PATHOLOGY (01/28/2016 8:56 EDT) Pathology Report: SURGICAL PATHOLOGY REPORT Reports generated via electronic interface contain original data; however they are lacking the format of the original report. Caution should be taken when reading/interpret ing unformatted reports. Name: ? ROMEO COE ? Accession #: ? [id number] ? : ? 1965 (Age: 50) ??M ? Collect Date: ? 01/28/2016 ? Location: ? [facility] ? Receive Date: ? 01/30/2016 ? Provider: ROMI MONTANEZ MD Copy to: CONI LIM MD ? Final Pathologic Diagnosis: A. SMALL BOWEL, SECOND PORTION OF DUODENUM, BIOPSY: - ??Duodenal mucosa with focal peptic duodenitis. B. STOMACH, ANTRUM, BIOPSY: - ??Antral mucosa with reactive gastropathy. - ??No evidence of Helicobacter pylori on H&E. C. ESOPHAGUS, MID, BIOPSY: - ??Reactive squamous mucosa with no significant abnormality. Document reviewed and electronically signed by: MICHAELA MCCARTHY MD Report ??Date: 02/04/2016 11:10 By the signature above, the attending physician certifies that he/she has personally conducted a gross and/or microscopic examination of the described specimens and rendered or confirmed the above diagnosis. Specimen(s) Received: A. ??1st part of duodenum bx B. ??Antrum bx C. ??Mid esophagus bx Clinical History: Clinical diagnosis code: ??Z12.11, K21.9, Z80.0 Gross Description: A. ?Received in formalin labelled with proper patient identification (initials M, J) and 1st part of duodenum bx is a 0.3 x 0.2 x 0.2 cm pale walters tissue. Entirely submitted in A1. B. ?Received in formalin labelled with proper patient identification (initials M, J) and antrum bx is a 0.2 x 0.2 x 0.2 cm walters tissue. Entirely submitted in B1. C. ?Received in formalin labelled with proper patient identification (initials M, J) and mid esophagus bx is a 0.5 x 0.2 x 0.1 cm pale ramirez membranous tissue. Entirely submitted in C1. Trudy Morgan 01/30/2016 9:50 AM End of Report [facility] 01/28/2016 8:56 EDT 01/30/2016 8:56 EDT Romi Montanez MD PATHOLOGY ORDERABL ES [facility] [address] [place] [address] documented in this encounter Visit Diagnoses Not on filedocumented in this encounter Care Teams Java Solutions Architect Relationship Specialty Start Date End Date Coni Lim MD [address] [place] [id number] PCP - General 12/17/11 documented as of this encounter
--- OUTSIDE RECORDS SUMMARY | 2024-04-30 13:44 | XMS_ITS | Encounter Summary ---
Author Organization [facility] Address [address] [place] [address] Care Team Providers Care Clinical Courier Name Role Phone Coni Lim MD Primary Care Provider [phone] Encounter Details Date Type Department Care Team (Latest Contact Info) Description 01/28/2016 9:36 EDT - 01/28/2016 23:59 EDT Hospital Encounter [address] [address] Unknown, Provider, Discharge Disposition: Home or Self Care Social [...] Sig Dispensed Refills Start Date End Date buPROPion (WELLBUTRIN SR) 150 mg SR tablet Take 1 Tablet by mouth 2 times daily. cyclobenzaprine (FLEXERIL) 10 mg tablet Take 1 Tablet by mouth at bedtime as needed for Muscle Spasms. DULoxetine (CYMBALTA) 60 mg capsule Take 1 Capsule by mouth 2 times daily. gabapentin (NEURONTIN) 800 mg tablet Take 1 Tablet by mouth 3 times daily. 800 mg TID metFORMIN (GLUCOPHAGE) 1,000 mg tablet Take 1 Tablet by mouth 2 times daily. nitroGLYCERIN (NITROSTAT) 0.[address] 1 Tablet under the tongue every 5 minutes as needed for Chest Pain. pantoprazole (PROTONIX) 40 mg tablet Take 1 Tablet by mouth 2 times daily. ranolazine (RANEXA) 500 mg SR tablet Take 1 Tab by mouth 2 times daily. 60 Tab 3 02/23/2014 rosuvastatin (CRESTOR) 20 mg tablet Take 1 Tab by mouth daily. 30 Tab 3 02/16/2014 aspirin 325 mg tablet Take 325 mg [...] Code Departure Means Destination Home or Self Shelter documented in this encounter Plan of Treatment Not on file documented as of this encounter Visit Diagnoses Not on filedocumented in this encounter Care Teams Clinical Courier Relationship Specialty Start Date End Date Coni Lim MD [address] [place] [address] PCP - General 12/17/11 documented as of this encounter
--- OUTSIDE RECORDS SUMMARY | 2024-04-30 13:44 | XMS_ITS | Encounter Summary ---
Author Organization [facility] [place] [address] Care Team Providers Care Soda Fountain Manager Name Role Phone Coni Lim MD Primary Care Provider [phone] Reason for Visit * Reason Comments Chest Pain Encounter Details Date Type Department Care Team (Late st Contact Info) Description 05/13/2011 11:30 AM EDT Procedure visit [facility] [address] [place] [address] Rafael Nieto Jr., MD [address] [place] [id number] Chest pain (Primary Dx) Social History Tobacco Use Types Packs/Day Years Used Date Smoking Tobacco: Never Assessed Sex and Gender Information Value Date Recorded Sex Assigned at Not on file Gender Identity Not on file Sexual Orientation Not on file documented as of this encounter Progress Notes * Rafael Nieto Jr., MD - 05/13/2011 12:54 PM EDT Dobutamine MIBI Stress Test- Final Report Romeo Coe : 1965 [facility], [address] [facility] [address] Primary Physician: CONI LIM MD Cc David Marin Indication: chest pain Date of Study: 05/13/2011 Summary: Max Exercise: Dobutamine to 40 mcg with leg exercise Max HR: 144= 85 % PMR(148) Max BP: 170/[address] change: none Reason for Termination: reached target, 05/03 chest pain Imaging: Small fixed septal defect EF 53 % Impression: reproduction of chest pain without EKG changes or changing perfusion defects-non cardiac chest pain Details: Medication: off nitrates and beta alex 24 hours Risk Factors: Known CAD Resting EKG: NSR 80, normal Resting BP: 120/80 Arrhythmias: none Recovery: BP -> 140/80 HR -> 96 Arrhythmias: none Lopressor 5mg IV Rest Images: 10.3 mC MIBI, Spect-small septal defect, mild diaphragm artifact Stress Images: 32.7 mC MIBI, Spect-small septal defect, less diaphragm artifact documented in this encounter Plan of Treatment Not on file documented as of this encounter Visit Diagnoses Diagnosis Chest pain- Primary Chest pain, unspecified documented in this encounter Care Teams Soda Fountain Manager Relationship Specialty Start Date End Date Coni Lim MD [address] [place] [id number] PCP - General 07/16/10 documented as of this encounter
--- OUTSIDE RECORDS SUMMARY | 2024-04-30 13:44 | XMS_ITS | Clinical Summary ---
Author Organization [facility] Address [address] [place] [address] Care Team Providers Care Application Programmer Analyst Name Role Phone Coni Lim MD Primary Care Provider [phone] Allergies Active Allergy Reactions Criticality Noted Date Comments Lisinopril (Bulk) Cough 02/14/2014 Thallium-201 02/14/2014 cardiac episode Medications Medication Sig Dispensed Refills Start Date End Date Status buPROPion (WELLBUTRIN SR) 150 mg SR tablet Take 1 Tablet by mouth 2 times daily. Active cyclobenzaprine (FLEXERIL) 10 mg tablet Take 1 Tablet by mouth at bedtime as needed for Muscle Spasms. Active DULoxetine (CYMBALTA) 60 mg capsule Take 1 Capsule by mouth 2 times daily. Active gabapentin (NEURONTIN) 800 mg tablet Take 1 Tablet by mouth 3 times daily. 800 mg TID Active metFORMIN (GLUCOPHAGE) 1,000 mg tablet Take 1 Tablet by mouth 2 times daily. Active nitroGLYCERIN (NITROSTAT) 0.[address] 1 Tablet under the tongue every 5 minutes as needed for Chest Pain. Active pantoprazole (PROTONIX) 40 mg tablet Take 1 Tablet by mouth 2 times daily. Active rosuvastatin (CRESTOR) 20 mg tablet Take 1 Tab by mouth daily. 30 Tab 3 02/16/2014 Active ranolazine (RANEXA) 500 mg SR tablet Take 1 Tab by mouth 2 times daily. 60 Tab 3 02/23/2014 Active pregabalin (LYRICA) 50 mg capsule Take 1 Capsule by mouth 3 times daily. Daily Max: 150 mg Active topiramate (TOPAMAX) 25 mg tablet Take 1 Tablet by mouth SEE ADMIN INSTRUCTIONS. One 25 mg tablet in the morning and two 25 mg tablets at night Active aspirin 81 mg capsule Take 81 mg by mouth daily. Active isosorbide MONOnitrate (IMDUR) 30 mg CR tablet Take 1 Tablet by mouth daily. Active metoprolol SUCCinate (TOPROL-XL) 200 mg tablet Take 1 Tablet by mouth daily. Active pramipexole (MIRAPEX) 0.5 mg tablet Take 1 Tablet by mouth SEE ADMIN INSTRUCTIONS. Patient takes one 0.5 mg tablet in the morning and two 0.5 mg tablets at night Active Active Problems Problem Noted Date Diagnosed Date Encephalopathy 04/08/2023 Acute respiratory failure with hypoxia ([facility]) 04/08/2023 Idiopathic hypotension 04/08/2023 CVA (cerebral vascular accident) ([facility]) 03/15 Anxiety and depression 02/22/2014 Unstable angina ([facility]) 02/15/2014 CAD (coronary artery disease) 02/15/2014 Syncope Surgical History Surgery Date Site/Laterality Comments GALLBLADDER SURGERY Medical History Medical History Date Comments HTN (hypertension) HLD (hyperlipidemia) DMII (diabetes mellitus, type 2) ([facility]) CAD (coronary artery disease) Smoking Depression Fibromyalgia Gout Family History Medical History Relation Comments Diabetes Other Heart Disease Other Relation Status Comments Other Social History Tobacco Use Types Packs/Day Years [...] 10:55 EDT Sexual Orientation Not on file Obstetrics History Last Filed Vital Signs Vital Sign Reading [...] Body Mass Index 38.48 04/08/2023 1158 EDT Plan of Treatment Health Maintenance Due Date Last Done Comments Hepatitis C Screen 1965 Hepatitis B Vaccine (1 of 3 - 19+ 3-dose series) 06/08 COVID-19 Vaccine (2022-24 season) 2023 Advance Directives For more information, please contact: [phone] * Full Code (Latest Code Status on File) Date Activated Date Inactivated Comments 04/08/2023 0:34 04/09/2023 15:54 Question Answer Comments When the patient has NO PULSE: Full Code / CPR Who Made the Decision? Default/Not Discussed * Full Code Date Activated Date Inactivated Comments 03/15/2015 1:06 03/16/2015 15:03 Question Answer Comments Reason for decision includes: Full code consistent with overall plan of care Who participated in the discussion? Patient * Full Code Date Activated Date Inactivated Comments 02/21/2014 19:48 02/23/2014 17:47 * Full Code Date Activated Date Inactivated Comments 02/14/2014 22:30 02/16/2014 17:34 Care Teams Application Programmer Analyst Relationship Specialty Start Date End Date Coni Lim MD [address] [place] [id number] PCP - General 12/17/11
--- OUTSIDE RECORDS SUMMARY | 2024-04-30 13:44 | XMS_ITS | Referral Summary ---
Author Organization [facility] Address [address] [place] [address] Care Team Providers Care Diesel Locomotive Firer Name Role Phone Coni Lim MD Primary Care Provider [phone] Allergies Active Allergy Reactions Criticality Noted Date [...] Encephalopathy 04/08/2023 Acute respiratory failure with hypoxia ([facility]) 04/08/2023 Idiopathic hypotension 04/08/2023 CVA (cerebral vascular accident) ([facility]) 03/15 Anxiety and depression 02/22/2014 Unstable angina ([facility]) 02/15/2014 CAD (coronary artery disease) 02/15/2014 Syncope Social History Tobacco Use Types Packs/Day Years [...] 10:55 EDT Sexual Orientation Not on file Last Filed [...] Body Mass Index 38.48 04/08/2023 1158 EDT Functional Status Functional Status Response Date of Assess ment Do you have serious difficul ty walking or climbing stairs? (5 years old or older) No 04/08/2023 Do you have difficulty dress ing or bathing? (5 years old or older) No 04/08/2023 Plan of Treatment Not on file Advance Directives For more information, please contact: [phone] * Full Code (Latest Code Status on [...] Comments 02/14/2014 22:30 02/16/2014 17:34 Care Teams Diesel Locomotive Firer Relationship Specialty Start Date End Date Coni Lim MD [address] [place] [id number] PCP - General 12/17/11
--- OUTSIDE RECORDS SUMMARY | 2024-04-30 13:44 | XMS_ITS | Encounter Summary ---
Author Organization [facility] Address [facility] [place] [address] Care Team Providers Care Air Quality Manager Name Role Phone Coni Lim MD Primary Care Provider [phone] Encounter Details Date Type Department Care Team (Late st Contact Info) Description 05/31/2012 Orders Only Cardiology at [address] [phone] [place] [facility] [place] [address] CAD (coronary artery disease), non-obstructive (Primary Dx) Social History Tobacco Use Types Packs/Day Years Used Date Smoking Tobacco: Never Assessed Sex and Gender Information Value Date Recorded Sex Assigned at Not on file Gender Identity Not on file Sexual Orientation Not on file documented as of this encounter Plan of Treatment Scheduled Orders Name Type Priority Associated Diagnoses Order Schedule Cardiac Catheterization Cardiac Cath Routine One Time for 1 Occurrences starting 05/31/2012 until 05/31/2012 documented as of this encounter Visit Diagnoses Diagnosis CAD (coronary artery disease), non-obstructive- Primary Coronary atherosclerosis of unspecified type of vessel, pokagon or graft documented in this encounter Care Teams Air Quality Manager Relationship Specialty Start Date End Date Coni Lim MD [address] [place] [address] PCP - General 07/16/10 documented as of this encounter
--- OUTSIDE RECORDS SUMMARY | 2024-04-30 13:45 | XMS_ITS | Encounter Summary ---
Author Organization [facility] Address [address] [place] [address] Care Team Providers Care Tuber Operator Name Role Phone Unavailable Primary Care Provider Unavailabl e Encounter Details Date Type Department Care Team (Late st Contact Info) Description 12/15/2011 Results Only [facility] [phone] Randell Kate, [address] [place], [place] [id number] Social History Tobacco Use Types Packs/Day Years Used Date Smoking Tobacco: Never Assessed Sex and Gender Information Value Date Recorded Sex Assigned at Not on file Gender Identity Male 04/08/2023 10:55 EDT Sexual Orientation Not on file documented as of this encounter Plan of Treatment Not on file documented as of this encounter Procedures Procedure Name Priority Date/Time Associated Diagnosis Comments CYTOPATHOLOGY Routine 12/15/2011 0:00 EDT documented in this encounter Results * CYTOPATHOLOGY (12/15/2011 0:00 EDT) Pathology Report: CYTOPATHOLOGY REPORT Reports generated via electronic interface contain original data; however they are lacking the format of the original report. Caution should be taken when reading/interpreti ng unformatted reports. Name: ? ROMEO COE ? Accession #: ? [id number] : ? 1965 (Age: 46) ??M ?Collect Date: ? 12/15/2011 Location: ? [facility] ? Receive Date: ? 12/16/2011 Provider: ? RANDELL KATE DO Copy to: ? CYTOLOGIC DIAGNOSIS: ? Thyroid, right lobe, fine needle aspiration: 1. ?Negative for malignant cells. ? 2. ?? Rare follicular cells admixed with lymphocytes. ??See comment. ? COMMENT: ? The findings are suggestive of thyroiditis. ??Clinical correlation is suggested. ??(Dr. Rodriguez)/ruth Document reviewed and electronically signed by: ? SCOTT RODRIGUEZ MD Report Date: ??12/16/2011 17:33 By the signature above, the attending physician certifies that he/she has personally conducted a gross and/or microscopic examination of the described specimens and rendered or confirmed the above diagnosis. Specimen Type: ? Thyroid, Fine Needle Aspiration, Right Clinical History: ? Right thyroid mass; clinical diagnosis code: 241.0 ? Gross Description: ? One vial of CytoLyt was received and processed by selective cellular enhancement technique. ? End of Report [facility] 12/15/2011 12/16/2011 7:5 2 EDT Randell Kate DO PATHOLOGY ORDER CARTER [facility] [address] [place] [address] documented in this encounter Visit Diagnoses Not on filedocumented in this encounter
--- OUTSIDE RECORDS SUMMARY | 2024-04-30 13:45 | XMS_ITS | Encounter Summary ---
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) Kemi Vo NP [address] [address] Benjie Leyva MD [address] [place] [id number] Referral ID Status Reason Start Date Expiration Date V isits Requested Visits Authorized [id number] Closed Specialty Services Required 02/15/2014 1 1 Question Answer Reason for Request: post NSTEMI post pci Scheduling Comments (optional ? describe specific scheduling needs if applicable): 1 month Expected Discharge Date (Inpatient Only): 02/16/2014 Comments Please schedule in [address] Leyva at [facility] Cardiology clinic * Consult (Routine) - Closed Specialty Diagnoses / Procedures Referred By Contac t Referred To Contact Cardiac Rehabilitation Diagnoses CAD (coronary artery disease) S/P coronary artery stent placement NSTEMI (non-ST elevated myocardial infarction) ([facility]) Kemi Vo NP [address] [id number] Referral ID Status Reason Start Date Expiration Date V isits Requested Visits Authorized [id number] Closed Specialty Services Required 02/15/2014 1 1 Question Answer Reason for Request: post NSTEMI, CAD, post pci Scheduling Comments (optional ? describe specific scheduling needs if applicable): 1 week Expected Discharge Date (Inpatient Only): 02/16/2014 Comments Please refer to cardiac rehab at [facility] Encounter Details Date Type Department Care Team (Late st Contact Info) Description 02/15/2014 13:04 EDT - 02/16/2014 15:32 EDT Hospital Encounter [facility] Cardiac/Telemetry Unit [address] [place] [address] Mahi Mcginnis MD 111 [facility] [address] [place] [address] Chest pain (Primary Dx); CAD (coronary artery disease); Unstable angina ([facility]); S/P coronary artery stent placement; NSTEMI (non-ST elevated myocardial infarction) ([facility]) Discharge Disposition: Home or Self Care Social History Tobacco Use Types Packs/Day Years Used Date Smoking Tobacco: Every Day Cigarettes Tobacco Cessation:Ready to Q uit: Yes Alcohol Use Standard Drinks/Week Comments Not Asked 0 (1 standard drink = 0.6 oz pur e alcohol) Sex and Gender Information Value Date Recorded Sex Assigned at Not on file Gender Identity Male 04/08/2023 10:55 EDT Sexual Orientation Not on file documented as of this encounter Last Filed Vital Signs Vital Sign Reading Time Taken Comments Blood Pressure 130/78 02/16/2014 0934 EDT Pulse 54 02/15/2014 2318 EDT Temperature 36.6 ??C (97.9 ??F) 02/16/2014 0934 EDT Respiratory Rate 18 02/16/2014 0934 EDT Oxygen Saturation 99% 02/16/2014 0934 EDT Inhaled Oxygen Concentration - - Weight 107.1 kg (236 lb 3.2 oz) 02/14/2014 215 EDT Height 179.1 cm (5' 10.5) 02/14/2014 215 EDT Body Mass Index 33.41 02/14/2014 2153 EDT documented in this encounter Functional Status Functional Status Response Date of Assess ment Are you deaf or do you have serious difficulty h earing? No 02/14/2014 Are you blind or do you have serious difficulty seeing, even when wearing glasses? No 02/14/2014 Do you have serious difficul ty walking or climbing stairs? (5 years old or older) No 02/14/2014 Do you have difficulty dress ing or bathing? (5 years old or older) No 02/14/2014 Because of a physical, menta l, or emotional condition, do you have difficulty doing errands alone such as visiting a doctor's office or shopping? (15 years old or older) No 02/14/2014 Cognitive Status Response Date of Assessm ent Because of a physical, menta l, or emotional condition, do you have serious difficulty concentrating, remembering, or making decisions? (5 years old or older) Yes 02/14/2014 documented as of this encounter Discharge Summaries * Vilma Benson Jr., MD - 02/16/2014 0920 EDT Discharge Summary Attending Physician: Mahi Elena MD Date of Admission: 02/14/2014 Date of Discharge: 02/16/2014 Disposition: Home Reason for Admission: Unstable angina Hospital Problems: Active Problems: Unstable angina CAD (coronary artery disease) Chest pain Principal Procedure: Left heart catheterization Diagnostic Cardiac Study Results Left main: Free of angiographically significant disease. Left anterior descending: Patent stent mid. Prox and dist edge restenosis ~50%. FFR=0.80. Left circumflex: Minor luminal irregularities. Patent stent in OM1 Right coronary artery: Dominant. Prox 50%. Distal 60%. FFR=0.92 Secondary Procedures: None Hospital Course: 48 yo male with hx of of CAD s/p PCI at [facility] in May 2012 and Jul 2013, tobacco abuse, HLD, DM, HTN, who presented with USAP. He underwent left heart catheterization with PCI DESx2 to LAD. He remained stable after catheterization, without any arrhythmias and was discharged homeon 02/16/2014 in stable condition. He was continued on plavix 75mg daily (needs this for 1 year from now), asa daily for life, rosuvastatin 20mg daily (increased from 10mg). He was referred for cardiac rehab and follow up was requested with Dr. Leyva at [facility] Cardiology. Clinical Issues Needing Follow-up: None Results Pending at Discharge: Test results still pending from this admission None Discharge Medications: CHANGE how you take these medications Sig rosuvastatin 20 mg tablet Commonly known as: CRESTOR What changed: - medication strength - how much to take 20 mg, oral, DAILY CONTINUE taking these medications Sig aspirin chewable 81 mg tablet 81 mg, oral, DAILY buPROPion 75 mg tablet Commonly known as: WELLBUTRIN 150 mg, oral, 2 TIMES DAILY clopidogrel 75 mg tablet Commonly known as: PLAVIX 75 mg, oral, DAILY cyclobenzaprine 10 mg tablet Commonly known as: FLEXERIL 10 mg, oral, 2 TIMES DAILY PRN CYMBALTA 60 mg capsule Generic drug: DULoxetine 60 mg, oral, 2 TIMES DAILY DILTiazem 240 mg SR capsule Commonly known as: TIAZAC 240 mg, oral, DAILY furosemide 20 mg tablet Commonly known as: LASIX 20 mg, oral, DAILY PRN gabapentin 300 mg capsule Commonly known as: NEURONTIN 300 mg, oral, 3 TIMES DAILY, 300 am, 300 lunch, 600 qhs isosorbide mononitrate 120 mg CR tablet Commonly known as: IMDUR 120 mg, oral, DAILY LEVALBUTEROL HCL INHALATION inhalation magnesium oxide 400 mg tablet Commonly known as: MAG-OX 400 mg, oral, 2 TIMES DAILY metFORMIN 850 mg tablet Commonly known as: GLUCOPHAGE 850 mg, oral, 2 TIMES DAILY metoprolol 100 mg tablet Commonly known as: LOPRESSOR 100 mg, oral, 2 TIMES DAILY nitroGLYCERIN 0.4 mg SL tablet Commonly known as: NITROSTAT 0.4 mg, sublingual, EVERY 5 MIN PRN pantoprazole 40 mg tablet Commonly known as: PROTONIX 40 mg, oral, DAILY Allergies: Lisinopril (bulk) and Thallium-201 Appointments Scheduled with Sal Pardo in the Next 3 Months: Follow-Up Appointments and Procedures Recommended to Patient: Follow-up appointments and procedures Amb Consult/Follow Up Cardiac Rehabilitation Please refer to cardiac rehab at [facility] Reason for Request: post NSTEMI, CAD, post pci Expected Discharge Date (Inpatient Only): 02/16/2014 Scheduling Time Frame: 1 week CONSULT: Consulting provider to render an opinion, attending physician continues to manage the careof the patient. REFERRAL: Care transferred to a second provider who assumes responsibility for all or a portion of the patient's care. FOLLOW UP: Used by a current provider to schedule an outpatient visit within their service or practice. Authorizing Provider: Kemi Vo NP Amb Consult/Follow Up Cardiology Please schedule in [address] Leyva at [facility] Cardiology clinic Reason for Request: post NSTEMI post pci Expected Discharge Date (Inpatient Only): 02/16/2014 Scheduling Time Frame: 1 month CONSULT: Consulting provider to render an opinion, attending physician continues to manage the careof the patient. REFERRAL: Care transferred to a second provider who assumes responsibility for all or a portion of the patient's care. FOLLOW UP: Used by a current provider to schedule an outpatient visit within their service or practice. Authorizing Provider: Kemi Vo NP Additional Information: Please see your Ladies' Hat Trimmer Dr Adithya Leyva in [facility], on February at [address] Leyva's telephone number is [phone]. Follow-Up Labs and Tests: None Sophie Salinas MD 02/16/2014 13:57 ATTENDING Attestation statement: I saw and examined the patient with the resident. I agree with the findings and plan of care documented in the resident's note. Vilma Benson Jr., MD filter press tender head [facility] Pager [phone] documented in this encounter Discharge Instructions * Appointments* Mariah Munoz - 02/16/2014 13:41 EDT Please see your Ladies' Hat Trimmer Dr Adithya Leyva in [facility], on February at [address] Leyva's telephone number is [phone]. documented in this encounter Medications at Time [...] 1 Tablet by mouth 2 times daily. rosuvastatin (CRESTOR) 20 mg tablet Take 1 Tab by mouth daily. 30 Tab 3 02/16/2014 aspirin chewable 81 mg tablet Take 81 mg by mouth daily. 03/16/2015 clopidogrel (PLAVIX) 75 mg tablet Take 1 [...] LEVALBUTEROL HCL INHALATION Inhale as directed. 04/09/20 23 magnesium oxide (MAG-OX) 400 mg tablet Take 400 mg by mouth 2 times daily. 04/09/2023 metoprolol (LOPRESSOR) 100 mg tablet Take 100 mg by mouth 2 times daily. 04/08/2023 documented as of this encounter Ordered Prescriptions Prescription Sig Dispensed Refills Start Date End Da te rosuvastatin (CRESTOR) 20 mg tablet Take 1 Tab by mouth daily. 30 Tab 3 02/16/2014 clopidogrel (PLAVIX) 75 mg tablet Take 1 Tab by mouth daily. 30 Tab 11 02/16/2014 04/09/2023 documented in this encounter Discharge Disposition Disposition Code Departure Means Destination Home or Self Care documented in this encounter Progress Notes * Rosario Russo RN - 02/16/2014 2496 EDT D: Patient discharged home per MD. A: IV removed, catheter tip intact. Telemetry removed. RN reviewed discharge instructions and medications with patient. Patient received prescriptions, medication sheets, and discharge instructions. R: Patient expressed good understanding of discharge instructions. Pt has no questions at this time. Patient dressed independently. They left via wheelchair. * Katia Nichols RN - 02/16/2014 1045 EDT 02/16: A volunteer drive from [employer] will supervisor veneer patient in main lobby at 3:30. His name is Sal. Patient aware. Katia Nichols RN [facility] #[id number] * Sophie Salinas MD - 02/15/2014 1600 EDT Cardiology Post Procedure Check: S: LHC today. Patient denies chest pain, palpitations, shortness of breath. No pain or bleeding at access site. O: Blood pressure 112/68, pulse 60, temperature 36.2 ??C (97.2 ??F), temperature source Tympanic, resp. rate 16, height 179.1 cm (70.5), weight 107.14 kg (236 lb 3.2 oz), SpO2 96.00%. General: Alert and oriented. Comfortable. CV: RRR Resp: CTA B Groin: Access site right radial artery . Dressing is clean, dry, intact. No ecchymosis, hematoma, or pulsatile mass. Extremities: DP pulses 2+ bilaterally. Foot warm and sensate. A/P: Stable post cath. Continue current care. Sophie Salinas MD MPH - PGY 2 Pager [phone] 02/15/2014 * Vilma Benson Jr., MD - 02/15/2014 1220 EDT Dear Drs[address] Lim and Gordon, I had the pleasure of performing cardiac catheterization on Romeo Coelho today. As you know, he lester 48-year-old male with a prior history of coronary artery disease, status post stenting of his midleft anterior descending artery and proximal first obtuse marginal arteries, most recently in July of 2013. He presented with unstable angina. He is on 3 medications for anginal therapy. He did not rule in for myocardial infarction during his presentation. Coronary angiography was performed via the right radial artery. I found that there appeared to be some mild as restenosis of the proximal and distal edges of the mid left anterior descending artery stent. The stent in the first obtuse marginal artery is widely patent. The dominant right coronary has moderate disease. I performed fractional flow reserve assessment with a pressure wire of both the left anterior descending and right coronary arteries. The left anterior descending artery had an abnormal FFR value. The FFR value in the right coronary artery was normal. I performed percutaneous coronary intervention of the left anterior descending artery, successfullyplacing 2 drug-eluting stents. There were no complications. His left ventricular end-diastolic pressure was mildly elevated. There was no gradient across the aortic valve. In addition to stenting, we will be intensifying his antianginal regimen. There appeared to be somequalitative evidence of endothelial dysfunction in the left anterior descending artery. He may benefit from more intensive vasodilator therapy. He did receive additional drug-eluting stents they, and must remain on dual and a platelet therapy according to guidelines for a minimum of 12 months after this procedure. Thank you for allowing me to participate in the care of Mr. Coelho. Please feel free to contact me anytime if you have any questions or concerns. Sincerely, Vilma Benson Jr. MD filter press tender head [facility] Pager # [phone] * Katia Nichols, VERO - 02/15/2014 5552 EDT Initial Case Management/Social Work Assessment and Discharge Plan/Readmission Risk Assessment Physician working diagnosis: 48 y.o. male with known cad who presents with progressive typical chest pain at rest and negative trops concerning for USAP Patient (or designee) understanding of admission: Chest Pain Patient Contact Information: Dasia Coelho, spouse, MEDICAL AND COMMUNITY SERVICES: Primary Care Provider: SARITA LIM MD Pharmacy: LIVING ARRANGEMENTS AND ACCESSIBILITY ISSUES: House Are there any home access issues? No What in home social supports are available to the patient? spouse and 13 yo old daughter ADVANCED DIRECTIVES, POA &/or COLST IN PLACE: No CULTURAL, ORTHODOX and/or LANGUAGE factors affecting health care/discharge planning:: N/A FUNCTIONAL & PSYCHOSOCIAL INFORMATION: Patient independent at home; does not use DME MEDICAL INSURANCE IN PLACE: Yes Medicare Type: A;B Medicaid Type: Community DISCHARGE RISK ASSESSMENT: Polypharmacy, > 7 medications Total # selected above: Score of 1 - 2: This patient is at LOW RISK for re-hospitalization Tentative plan to address the risk of re-hospitalization for those at HIGH or MODERATE RISK: N/A INITIAL TRANSITION PLAN: Plan [facility] today Transportation from hospital in place? Yes,family Post hospitalization Plan: Return to independent living New DME Requirements: No Initial plan discussed with: patient Katia Nichols RN 02/15/2014 8:46 * Sophie Salinas MD - 02/15/2014 0755 EDT Cardiology Daily Progress Note Admit Date: 02/14/2014 Date of Service: 02/15/2014 Hospital LOS: 1 day CC: Chest pain Problems/Diagnosis: USAP Overnight Events: Admitted overnight. Subjective: Reports feeling well this morning. He states that he had some substernal chest pain last night (around midnight) but since then has not had any pain. He denies any shortness of breath at this time. He also denies any nausea, vomiting, or diarrhea. Review of Systems: A 10-point ROS was performed. Pertinent positives are listed above; all others negative unless otherwise noted. Medication Changes for the Day: All other medications were reviewed by me. Current Facility-Administered Medications Medication Route Frequency ??? aspirin chewable tablet 81 mg oral DAILY ??? buPROPion (WELLBUTRIN) tablet 150 mg oral BID ??? clopidogrel (PLAVIX) tablet 75 mg oral DAILY ??? cyclobenzaprine (FLEXERIL) tablet 10 mg oral BID PRN ??? dextrose 50 % solution 12.5 g intravenous PRN ??? DILTiazem (TIAZAC) ER capsule 240 mg oral DAILY ??? DULoxetine (CYMBALTA) capsule 60 mg oral BID ? ? gabapentin (NEURONTIN) capsule 300 mg oral BEFORE BREAKFAST & LUNCH ??? gabapentin (NEURONTIN) capsule 600 mg oral QHS ??? glucagon (human recombinant) injection 1 mg intramuscular PRN ??? heparin 1,000 unit/mL injection 6,100 Units intravenous PRN Or ??? heparin 1,000 unit/mL injection 3,100 Units intravenous PRN ??? heparin in 1/2 NS 25,000 unit/250 mL infusion intravenous CONTINUOUS ??? insulin aspart (NOVOLOG FLEXPEN) injection subcutaneous TID WC ??? insulin aspart (NOVOLOG FLEXPEN) injection subcutaneous QHS ??? metoprolol (LOPRESSOR) tablet 100 mg oral BID ??? morphine injection 2-4 mg intravenous Q5 MINUTES PRN ??? nitroGLYCERIN (NITROSTAT) SL tablet 0.4 mg sublingual Q5 MINUTES PRN ??? nitroglycerin 400 mcg/ml in D5W 250 ml infusion intravenous CONTINUOUS ??? sodium chloride 0.9 % flush 3 mL intravenous Q8H Objective: Physical Exam: VS: BP 100/54 Pulse 59 Temp(Src) 36.2 ??C (97.2 ??F) (Tympanic) Resp 16 Ht 179.1 cm (70.5) Wt 107.14 kg (236 lb 3.2 oz) BMI 33.4 kg/m2 SpO2 97% General appearance: alert, cooperative, no distress Head: Normocephalic, without obvious abnormality, atraumatic Eyes: conjunctivae/corneas clear. PERRL, EOM's intact. Lungs: clear to auscultation bilaterally Heart: regular rate and rhythm, S1, S2 normal, no murmur, click, rub or gallop Abdomen: soft, non-tender; bowel sounds normal Mental Status: awake and alert; oriented to person, place, and time Extremities: extremities warm, atraumatic, no cyanosis or edema Labs: CBC: Recent Labs 02/14/14 2243 02/15/14 0534 WBC 8.63 10.55* HGB 15.0 15.1 HCT 43.9 44.5 MCV 86 88 PLT 170 150 BMP: Recent Labs 02/15/14 0534 NA 143 K 4.1 CL 107 CO2 25 BUN 10 CREATININE 0.80 Assessment: Pt is a 48 y.o. with hx of CAD s/p PCI at [facility] in May 2012 and Jul 2013, tobacco abuse, HLD, DM, HTN, who presented with USAP. Plant to undergo LHC today. Plan: Unstable angina -troponins x2 negative -A1c pending -LDL 51, total chol 143 -TTE -ASA 81daily, metoprolol 100 mg BID -PRN morphine, NTG -nitro gtt -metoprolol 100 mg BID -Plavix 75mg daily -LHC this morning HLD -rosuvastatin 10mg daily HTN -ARB if patients EF is less than 40% (Lisinopril on allergy list) DM2 -A1c -SSI -hold oral agents Depression -home meds PPX: heparin gtt Code status: FULL CODE Dispo: pending clinical course Sophie Salinas M.D. M.P.H PGY-2, #[id number] * Nathan Tyson MD - 02/14/2014 2566 EDT 48 with PMH of HTN, diabetes, dyslipidemia, smoker, coronary artery disease S/P stents in [facility] May of 2012 in Julyo13 was being transferred to our hospital with unstable angina for cardiac catheter tomorrow. Patient reports that since his last catheter in July of 2013 he did not have any CP until a month ago, he started to have the same kind of pain that he had before the catheter, initially was exertional, felt like heaviness in his chest with radiation to his arm and back, last for a few minutes and go away, over the past 3 days the pain is getting worse, pain is on and off, peak is graded as 10, EKG and OSH was negative for any acute ischemia, and troponin negative. Patient is a already on Plavix, but loaded again in OSH, heparin started, continue statin, metoprolol and imdur for cath tomorrow documented in this encounter H&P Notes * Elias Ge MD - 02/14/2014 9819 EDT Internal Medicine Admission H&P Admission Date: 02/14/2014 PCP: SARITA LIM MD CC: chest pain Subjective: HPI: Romeo Coelho is a 48 y.o. year old male with hx of known cad (s/p PCI with 3 stents at [facility]), htn, hld, dmii, who presents with chest pain. It is a pressure and radiates to his jaw. He says it has been going on for three weeks with exertion and is now occuring at rest. He has also had palpitations for which he just had a halter monitor. He has had some associated dyspnea and indigestion. He went to an osh and had a negative ekg, trop and was loaded with asa and plavix and started on a heparin gtt. He says his pain is greatly relieved by a nitro gtt and sublingual nitros and currently he is comfortable. Review of Systems A ten point review of systems performed and negative except as noted in HPI/subjective PMH PSH Past Medical History Diagnosis Date ??? HTN (hypertension) ??? HLD (hyperlipidemia) ??? DMII (diabetes mellitus, type 2) ??? CAD (coronary artery disease) ??? Smoking Past Surgical History Procedure Laterality Date ??? Gallbladder surgery Social History Family history History Substance Use Topics ??? Smoking status: Current Every Day Smoker -- 0.50 packs/day Types: Cigarettes ??? Smokeless tobacco: Not on file ??? Alcohol Use: Not on file Family History Problem Relation Age of Onset ??? Heart Disease ??? Diabetes Current Facility-Administered Medications Medication Route Frequency ??? [START ON 02/15/2014] aspirin chewable tablet 81 mg oral DAILY ??? buPROPion (WELLBUTRIN) tablet 150 mg oral TID ??? [START ON 02/15/2014] clopidogrel (PLAVIX) tablet 75 mg oral DAILY ??? cyclobenzaprine (FLEXERIL) tablet 10 mg oral BID PRN ??? dextrose 50 % solution 12.5 g intravenous PRN ??? [START ON 02/15/2014] DILTiazem (TIAZAC) ER capsule 240 mg oral DAILY ??? DULoxetine (CYMBALTA) capsule 60 mg oral BID ? ? [START ON 02/15/2014] gabapentin (NEURONTIN) capsule 300 mg oral BEFORE BREAKFAST & LUNCH ??? gabapentin (NEURONTIN) capsule 600 mg oral QHS ??? glucagon (human recombinant) injection 1 mg intramuscular PRN ??? heparin 1,000 unit/mL injection 6,100 Units intravenous PRN Or ??? heparin 1,000 unit/mL injection 3,100 Units intravenous PRN ??? heparin in 1/2 NS 25,000 unit/250 mL infusion intravenous CONTINUOUS ??? [START ON 02/15/2014] insulin aspart (NOVOLOG FLEXPEN) injection subcutaneous TID WC ??? insulin aspart (NOVOLOG FLEXPEN) injection subcutaneous QHS ??? metoprolol (LOPRESSOR) tablet 100 mg oral BID ??? morphine injection 2-4 mg intravenous Q5 MINUTES PRN ??? nitroGLYCERIN (NITROSTAT) SL tablet 0.4 mg sublingual Q5 MINUTES PRN ??? nitroglycerin 400 mcg/ml in D5W 250 ml infusion intravenous CONTINUOUS ??? [START ON 02/15/2014] sodium chloride 0.9 % flush 3 mL intravenous Q8H Allergies Allergies Allergen Reactions ??? Lisinopril (Bulk) Cough ??? Thallium-201 cardiac episode ??? Valium (Diazepam) Nausea Only severe cardiac episode. chest pain and dizziness Objective: Patient Vitals for the past 8 hrs: BP Pulse Heart Rate Resp Temp SpO2 O2 Flow Rate (L/min) O2 Device 02/14/14 2153 125/68 mmHg 67 67 BPM 20 36 ??C (96.8 ??F) 98 % 2 l/min Nasal cannula General appearance: alert, cooperative, no distress Head: Normocephalic, without obvious abnormality, atraumatic Eyes: conjunctivae/corneas clear. PERRL, EOM's intact. Lungs: clear to auscultation bilaterally Heart: regular rate and rhythm, S1, S2 normal, no murmur, click, rub or gallop Abdomen: soft, non-tender; bowel sounds normal; no masses, no organomegaly Neurologic: Grossly normal Mental Status: awake and alert; oriented to person, place, and time Extremities: extremities warm, atraumatic, no cyanosis or edema Skin: Skin color, temperature, turgor normal. No rashes or lesions ECG: sinus with no st deviations Data Review: Labs pending Assessment: 48 y.o. male with known cad who presents with progressive typical chest pain at rest and negative trops concerning for USAP Plan: Chest pain, CAD -tele -cycle CE -A1c, lipids -TTE -ASA -PRN morphine -PRN NTG -nitro gtt -metoprolol 100 mg BID -LHC in the AM HLD -statin HTN -ARB if patients ef is less than 40 DM2 -A1c -SSI -hold oral agents Depression -home meds PPX: heparin gtt Code status: FULL CODE Dispo: pending clinical course Farhan Alfaro MD Pager # [phone] 02/14/2014 22:33 I have seen and evaluated the patient. I agree with the assessment and plan as outlined above by Dr. Alfaro. Mr. Coelho has known CAD and is s/p PCI at [facility] on at least 2 occassions. He now presents with a clinical history c/w unstable angina. The plan if for LHC today. The patient is aware and agrees. He also needs risk factor modification - smoking cessation. We emphasized the importance of this AbelrNatalie Coelho. ELIAS GE MD Attending Ladies' Hat Trimmer documented in this encounter Procedure Notes * Vilma Benson Jr., MD - 02/15/2014 1204 EDT Images from the original note were not included. Cardiovascular Catheterization Laboratory Preliminary Report -- Catheterization Date of Service/Procedure: 02/15/2014 Attending Physician: Vilma Benson Jr., MD Asphalt Surface Heater Operator: Kemi Vo NP Pre-Procedure Diagnosis/Indication: Romeo Coelho is a 48 y.o. year old male with Known coronary artery disease and Unstable angina-CCS IV. NCDR Indication for PCI:Unstable angina-CCS IV Prior Stress Testing? No Cardiac Medications: On two or more anti anginal medications at the time of catheterization? Yes Anesthesia: A moderate level of anesthesia/conscious sedation was used in addition to local anesthesia. Access: Right radial artery Procedure: He was brought to the [facility] Cardiac Catheterization Laboratory for the procedure: Diagnostic coronary/graft angiography, Left heart cath, Coronary intervention (PCI) and Pressure wire. Closure: TR Band Post-Procedure Condition: The condition of the patient was Good. Complications: None. IV Contrast Total: 140 mL Estimated Blood Loss: Minimal. Unless otherwise noted, there were no specimens removed, cultures obtained, or drains retained. Research Study: Patient is not enrolled in a research study. Diagnostic Cardiac Study Results Left main: Free of angiographically significant disease. Left anterior descending: Patent stent mid. Prox and dist edge restenosis ~50%. FFR=0.80. Left circumflex: Minor luminal irregularities. Patent stent in OM1 Right coronary artery: Dominant. Prox 50%. Distal 60%. FFR=0.92 Mid LAD stent patent, but prox and distal edge restenosis. FFR =0.80 Left Ventriculography and Hemodynamic Results LVEDP mildly elevated There was no gradient across the aortic valve. Post-Procedure Diagnostic Conclusion: PCI is indicated. Abnormal FFR in LAD, above cutoff in RCA. Interventional Procedure: Using standard technique, the left anterior descending coronary artery was stented using two Resolute JACINDA. left anterior descending coronary artery after percutaneous coronary intervention Plan: Continue prior medications. Aspirin 81mg po daily. Plavix 75 mg po daily x 1 year minimum. Smoking cessation encouraged. Evaluation for cardiac rehab program. At the completion of the procedure, the attending physician has explained the findings, therapies, any complications and treatment plan to the patient. With the patients consent, all family members and patient support persons who were present at the conclusion of the procedure have been notified ofthese results and treatment plans as well. Post Interventional Conclusion/Physician Disposition: (check one main category) Inpatient procedure, continue inpatient status (no procedural complication required) Vilma Benson Jr., MD Pager Number: [phone] 02/15/2014 12:04 documented in this encounter Miscellaneous Notes * Plan of Care - Rosario Russo RN - 02/16/2014 1319 EDT Data: Assumed care of pt @ 0730. Patient A & O x 3, denies CP/discomfort, dyspnea, palpitationsor needs at this time. SR 60-80s on tele. VSS. Action: Right radial site is CDI. Reviewed plan of care and use of call light. P Response: Pt indicates understanding. In bed resting comfortably at present with no apparent distress. Will continue to assess and monitor. Rosario Russo RN 02/16/2014 13:20 * Plan of Care - Asad Bauman RN - 02/15/2014 4654 EDT Problem: CIRCULATORY STATUS Goal: Patient Has Stable Vital Signs And Fluid Balance Outcome: Ongoing Data: S/P LHC via right radial artery. Site dry and intact. Positive RUE CSMT. SB with HR 50s-60s. VSS. No complaints of pain. Action: Monitor right radial site, VS, and heart rhythm/rate Response: Patient resting comfortably. No complaints at this time. Plan for d/c in morning. ASAD BAUMAN RN 02/15/2014 22:41 * Plan of Care - Gina Mix RN - 02/15/2014 0243 EDT Problem: Acute Ischemic Pain - Cardiac Acute ischemic pain of a cardiac nature is generally manifested in the chest or left arm but mat beevidenced in other areas such as the jaw or teeth. The patient will frequently describe it as a pressure, squeezing or apprehension rather than pain. Goal: Patient States/Demonstrates Pain Relief Pain relief of cardiac ischemia to be relieved Intervention: Respond immmediately to patient complaint of pain Rapid response and treatment will decrease injury secondary to ischemia Data: Assumed care of patient at 0700. VSS. BP 116/72 Pulse 59 Temp(Src) 36.2 ??C (97.2 ??F) (Tympanic) Resp 16 Ht 179.1 cm (70.5) Wt 107.14 kg (236 lb 3.2 oz) BMI 33.4 kg/m2 SpO2 97%.On assessment patient painfree. After ambulating to bathroom, pt c/o 2/10 chest heaviness. Action: assessment as charted. Pt back in bed. EKG ordered. Nc 2L on. Bp stable. Am meds administered. Nitro gtt increased. Response: pt npo awaiting LHC today. Increase nitro gtt per BP and CP. Call perez in reach. Gina Mix RN 02/15/2014 8:35 * Plan of Care - Asad Bauman RN - 02/14/2014 8798 EDT Problem: HOSPITAL ORIENTATION/SAFETY Goal: Oriented To Hospital Environment Outcome: Completed Date Met: 02/14/14 D: Patient arrived to [place] [address]. Vital signs noted, and tele applied. Patient in NSR with heartrate in 60s. Patient denies chest pain, SOB, and discomfort. A; Assessment as documented in flow sheet. Admission database completed. Patient orientated to room, equipment, and care plan. Monitor heart rhythm/rate and VS. Heparin and nitroglycerin gtt stopped on arrival. MD Alfaro aware and will reorder. R: Patient resting comfortably. No complaints at this time. Okay to hold nitroglycerin gtt at this time per MD Alfaro. Patient with 0/10 CP. Plan is for [facility] in AM. 0018: Patient states 4/10 SSCP with nausea. EKG done. 2L nasal cannula applied. SL nitro given x3. 2mg IV morphine given. Nitro gtt restarted at 1.1mL/hr (7mcg/min) 0146: Pain now 0/10 documented in this encounter Plan of Treatment Scheduled Referrals Name Type Priority Associated Diagnoses Order Schedule AMB CONS/FOLLOW UP CARDIAC REHABILITATION Outpatient Referral Routine CAD (coronary artery disease) S/P coronary artery stent placement NSTEMI (non-ST elevated myocardial infarction) ([facility]) Ordered: 02/15/2014 AMB CONS/FOLLOW UP CARDIOLOGY Outpatient Referral Routine CAD (coronary artery disease) S/P coronary artery stent placement NSTEMI (non-ST elevated myocardial infarction) ([facility]) Ordered: 02/15/2014 documented as of this encounter Procedures Procedure Name Priority Date/Time Associated Diagnosis Comments INVASIVE CARDIOLOGY REPORT-SCANNED 09/05/2015 10:24 EST ECG REPORT - SCANNED 02/21/2014 15:36 EDT INVASIVE CARDIOLOGY REPORT-SCANNED 02/21/2014 15:36 EDT ECG REPORT - SCANNED 02/20/2014 10:15 EDT ECG REPORT - SCANNED 02/20/2014 10:03 EDT ECG REPORT - SCANNED 02/17/2014 15:12 EDT ECG REPORT - SCANNED 02/17/2014 15:10 EDT GLUCOSE, GLUCOMETER Routine 02/16/2014 1 2:01 EDT ECHOCARDIOGRAM STAT 02/16/2014 12:00 EDT DIFFERENTIAL Routine 02/16/2014 5:53 EDT PTT Routine 02/16/2014 5:53 EDT COMPLETE BLOOD COUNT Routine 02/16/2014 5:53 EDT COMPLETE BLOOD COUNT AND DIFFERENTIAL Routine 02/16/2014 5:53 EDT BUN Routine 02/16/2014 5:53 EDT ALT Routine 02/16/2014 5:53 EDT AST Routine 02/16/2014 5:53 EDT CREATININE Routine 02/16/2014 5:53 EDT CK MB WITH TOTAL CK Routine 02/16/2014 5 :53 EDT LIPID PROFILE (INCLUDES CHOLESTEROL, TRIGLYCERIDES, HDL, LDL) Routine 02/16/2014 5:53 EDT ELECTROLYTES Routine 02/16/2014 5:53 EDT GLUCOSE, GLUCOMETER Routine 02/16/2014 5 :51 EDT GLUCOSE, GLUCOMETER Routine 02/15/2014 2 0:41 EDT GLUCOSE, GLUCOMETER Routine 02/15/2014 1 6:44 EDT EKG 12-LEAD Routine 02/15/2014 14:19 EDT CK MB WITH TOTAL CK Routine 02/15/2014 1 4:02 EDT GLUCOSE, GLUCOMETER Routine 02/15/2014 1 2:38 EDT LEFT HEART CATH Routine 02/15/2014 10:55 EDT PTT Timed 02/15/2014 8:53 EDT EKG 12-LEAD STAT 02/15/2014 8:43 EDT GLUCOSE, GLUCOMETER Routine 02/15/2014 6 :40 EDT TROPONIN I Routine 02/15/2014 5:34 EDT DIFFERENTIAL Routine 02/15/2014 5:34 EDT COMPLETE BLOOD COUNT Routine 02/15/2014 5:34 EDT COMPLETE BLOOD COUNT AND DIFFERENTIAL Routine 02/15/2014 5:34 EDT BUN Routine 02/15/2014 5:34 EDT CREATININE Routine 02/15/2014 5:34 EDT CK MB WITH TOTAL CK Routine 02/15/2014 5 :34 EDT LIPID PROFILE (INCLUDES CHOLESTEROL, TRIGLYCERIDES, HDL, LDL) Routine 02/15/2014 5:34 EDT ELECTROLYTES Routine 02/15/2014 5:34 EDT PTT Timed 02/15/2014 1:57 EDT EKG 12-LEAD STAT 02/15/2014 0:29 EDT SCREENING GLUCOSE Routine 02/14/2014 22: 43 EDT TROPONIN I Routine 02/14/2014 22:43 EDT DIFFERENTIAL Routine 02/14/2014 22:43 EDT COMPLETE BLOOD COUNT Routine 02/14/2014 22:43 EDT COMPLETE BLOOD COUNT AND DIFFERENTIAL Routine 02/14/2014 22:43 EDT HEMOGLOBIN A1C Routine 02/14/2014 22:43 EDT CK MB WITH TOTAL CK Routine 02/14/2014 2 2:43 EDT EKG 12-LEAD Routine 02/14/2014 22:28 EDT GLUCOSE, GLUCOMETER Routine 02/14/2014 2 2:26 EDT documented in this encounter Results * INVASIVE CARDIOLOGY REPORT-SCANNED (09/05/2015 10:24 EST) 09/05/2015 10:2 4 EST Scan 2 Brake Operator PROCEDURE/MINOR GUSTAVO GICAL ORDERABLES * ECG REPORT - SCANNED (02/21/2014 15:36 EDT) 02/21/2014 15:3 6 EDT Scan 2 Brake Operator PROCEDURE/MINOR GUSTAVO GICAL ORDERABLES * INVASIVE CARDIOLOGY REPORT-SCANNED (02/21/2014 15:36 EDT) 02/21/2014 15:3 6 EDT Scan 2 Brake Operator PROCEDURE/MINOR GUSTAVO GICAL ORDERABLES * ECG REPORT - SCANNED (02/20/2014 10:15 EDT) 02/20/2014 10:1 5 EDT Scan 2 Brake Operator PROCEDURE/MINOR GUSTAVO GICAL ORDERABLES * ECG REPORT - SCANNED (02/20/2014 10:03 EDT) 02/20/2014 10:0 3 EDT Scan 2 Brake Operator PROCEDURE/MINOR GUSTAVO GICAL ORDERABLES * ECG REPORT - SCANNED (02/17/2014 15:12 EDT) 02/17/2014 15:1 2 EDT Scan 2 Brake Operator PROCEDURE/MINOR GUSTAVO GICAL ORDERABLES * ECG REPORT - SCANNED (02/17/2014 15:10 EDT) 02/17/2014 15:1 0 EDT Scan 2 Brake Operator PROCEDURE/MINOR GUSTAVO GICAL ORDERABLES * (ABNORMAL) GLUCOSE, GLUCOMETER (02/16/2014 12:01 EDT) Glucose, Fingerstick 133(H) 70 - 100 mg/dl [facility] Corporate Legal Secretary ID [id number] [facility] Comment:Test Performed by [facility] 02/16/2014 12:0 1 EDT 02/16/2014 12:02 EDT Mahi Mcginnis MD CHEMISTRY & BLOOD G ORDERABLES [facility] [address] [place] [address] * ECHOCARDIOGRAM (02/16/2014 12:00 EDT) Anatomical Region Laterality Modality Other 02/16/2014 12:0 0 EDT Narrative 02/16/2014 12:53 EDT *Interpreting Group:* *[facility]* [address] [place] [address] *STUDY CONCLUSIONS* Summary: 1. Left ventricle: The cavity size was normal. Wall thickness was normal. ?? Systolic function was normal. The estimated ejection fraction was 55-60%. ?? Wall motion was normal; there were no regional wall motion abnormalities. ?? Doppler parameters are consistent with abnormal left ventricular relaxation ?? (grade 1 diastolic dysfunction). 2. Left atrium: The atrium was mildly dilated. *PATIENT PRESENTATION* Height: ? 177.8cm (70in ) S/D Pressure: 130 / 78 Weight: ? 107kg (235.5lb ) BSA: ?2.34m^2 Test start time: ??11:30 AM. Test stop time: ??12:00 PM. ADMITTING ?Mahi Mcginnis MD ATTENDING ?Mahi Mcginnis MD REFERRING ?Sarita Lim PERFORMING ?? [facility], ORDERING ? Sophie Salinas REFERRING ?Sophie Salinas CONTROL VALVE MECHANIC ??Latoya Murcia *PROCEDURE DATA* Procedure information: ??This study was interpreted by [facility] at [facility]. ??Study status: ??Routine. Transthoracic echocardiography. ??M-mode, complete 2D, complete spectral Doppler, and color Doppler. A Transthoracic Echocardiogram was performed. Scanning was performed from the parasternal, apical, subcostal, and suprasternal notch acoustic windows. Images were obtained using a Zackery [id number] 4 cardiac ultrasound machine. Image quality was adequate. ??Study completion: ??The patient tolerated the procedure well. *INDICATIONS AND HISTORY* Indications: ?? 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 ??Angina pectoris (413.9). ?? *CARDIAC ANATOMY* Left ventricle: ??The cavity size was normal. Wall thickness was normal. Systolic function was normal. The estimated ejection fraction was 55-60%. Wall motion was normal; there were no regional wall motion abnormalities. Doppler parameters are consistent with abnormal left ventricular relaxation (grade 1 diastolic dysfunction). Aortic valve: ?? Trileaflet; normal thickness leaflets. Mobility was not restricted. ??Doppler: ??Transvalvular velocity was within the normal range. There was no stenosis. ??No regurgitation. Aorta: ??Aortic root: The aortic root was normal in size. Mitral valve: ?? Structurally normal valve. ?? Mobility was not restricted. Doppler: ??Transvalvular velocity was within the normal range. There was no evidence for stenosis. ??No regurgitation. ?Peak gradient: 2.1mm Hg (D). Left atrium: ??The atrium was mildly dilated. Right ventricle: ??The cavity size was normal. Wall thickness was normal. Systolic function was normal. Pulmonic valve: ?Doppler: ??Transvalvular velocity was within the normal range. There was no evidence for stenosis. ??No regurgitation. Tricuspid valve: ?? Structurally normal valve. ?Doppler: ??Transvalvular velocity was within the normal range. There was no evidence for stenosis. ??No regurgitation. Pulmonary artery: ?Systolic pressure could not be accurately estimated. Right atrium: ??The atrium was normal in size. Pericardium: ??There was no pericardial effusion. Systemic veins: Inferior vena cava: The vessel was normal in size. *MEASUREMENT TABLES* 2D measurements ?Normal Left ventricle LV internal dimension, ED, chordal level, PLAX ??*55 mm ? 43-52 LV internal dimension, ES, chordal level, PLAX ??*39 mm ? 23-38 Fractional shortening, chordal level, PLAX ?*29 % ?>29 Area, ED, A4C ?36.3 cm^2 ?? 17.7-47.3 Area, ES, A4C ?18.2 cm^2 ?? 7.9-31.5 Fractional area change, A4C ?50 % ?--------- Area, ED, A2C ?32.8 cm^2 ?? --------- Area, ES, A2C ?18.6 cm^2 ?? 8.9-28.1 Fractional area change, A2C ?43 % ?33.7-69 LV posterior wall thickness, ED ?10 mm ? --------- IVS/LVPW ratio, ED ?0.8 ?<1.3 Ejection fraction ?55.2 % ?--------- Stroke volume ?81.1 ml ? --------- Stroke index ? 34.7 ml/m^2 --------- Volume, ED, MOD, 1-plane ?119 ml ? --------- Volume, ES, MOD, 1-plane ? 37 ml ? --------- Ejection fraction, MOD, 1-plane ?69 % ?--------- Stroke volume, MOD, 1-plane ?83 ml ? --------- Volume index, ED, MOD, 1-plane ? 51 ml/m^2 --------- Volume index, ES, MOD, 1-plane ? 16 ml/m^2 --------- Stroke index, MOD, 1-plane ? 35.5 ml/m^2 --------- Volume, ED, MOD, 2-plane ?110 ml ? 62-170 Volume, ES, MOD, 2-plane ? 44 ml ? --------- Ejection fraction, MOD, 2-plane ?60 % ?--------- Stroke volume, MOD, 2-plane ?66 ml ? --------- Volume index, ED, MOD, 2-plane ? 47 ml/m^2 --------- Volume index, ES, MOD, 2-plane ? 19 ml/m^2 --------- Stroke index, MOD, 2-plane ? 28.3 ml/m^2 --------- Ventricular septum Septal thickness, ED ?8 mm ? --------- Aorta Root diameter, ED ?33 mm ? --------- Ascending aorta anterior-posterior diameter, S ?? 33 mm ? --------- Left atrium Anterior-posterior dimension ? 45 mm ? --------- Anterior-posterior dimension index ? 1.93 cm/m^2 <2.2 Superior-inferior dimension, A4C ? 45 mm ? 29-53 ?? Doppler measurements ? Normal Left ventricle IVRT ? 81 ms ? 60-100 Ea, lateral annulus, tissue Doppler ?9.87 cm/s ?? --------- E/Ea, lateral annulus, tissue Doppler ? 7.3 ?--------- Mitral valve Peak E-wave velocity ? 71.6 cm/s ?? --------- Peak A-wave velocity ? 54.8 cm/s ?? --------- Deceleration time ?*239 ms ? 150- 230 Peak gradient, D ?2.1 mm Hg ??--------- Peak E/A ratio ?1.3 ?--------- Legend: Mean values are shown as u=mean value. Asterisk (*) downing values outside specified normal range. Electronically signed by Alonso Gray MD 02/16/2014 12:53 Procedure Note 02/16/2014 *Interpreting Group:* *[facility]* [address] [place] [address] *STUDY CONCLUSIONS* Summary: 1. Left ventricle: The cavity size was normal. Wall thickness was normal. Systolic function was normal. The estimated ejection fraction [id number]%. Wall motion was normal; there were no regional wall motionabnormalities. Doppler parameters are consistent with abnormal left ventricularrelaxation (grade 1 diastolic dysfunction). 2. Left atrium: The atrium was mildly dilated. *PATIENT PRESENTATION* Height: 177.8cm (70in ) S/D Pressure: 130 / 78 Weight: 107kg (235.5lb ) BSA: 2.34m^2 Test start time: 11:30 AM. Test stop time: 12:00 PM. ADMITTING Mahi Mcginnis MD ATTENDING Mahi Mcginnis MD REFERRING Sarita Lim PERFORMING Fa, ORDERING Sophie Salinas REFERRING Sophie Salinas CONTROL VALVE MECHANIC Latoya Murcia *PROCEDURE DATA* Procedure information: This study was interpreted by [facility] at [facility]. Study status: Routine.Transthoracic echocardiography. M-mode, complete 2D, complete spectral Doppler, andcolor Doppler. A Transthoracic Echocardiogram was performed. Scanning wasperformed from the parasternal, apical, subcostal, and suprasternal notch acoustic windows. Images were obtained using a Zackery [id number] 4 cardiac ultrasoundmachine. Image quality was adequate. Study completion: The patient tolerated the procedure well. 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 Angina pectoris(413.9). *CARDIAC ANATOMY* Left ventricle: The cavity size was normal. Wall thickness was normal.Systolic function was normal. The estimated ejection fraction was 55-60%. Wallmotion was normal; there were no regional wall motion abnormalities. Dopplerparameters are consistent with abnormal left ventricular relaxation (grade 1 diastolic dysfunction). Aortic valve: Trileaflet; normal thickness leaflets. Mobility was not restricted. Doppler: Transvalvular velocity was within the normal range.There was no stenosis. No regurgitation. Aorta: Aortic root: The aortic root was normal in size. Mitral valve: Structurally normal valve. Mobility was not restricted. Doppler: Transvalvular velocity was within the normal range. There was no evidence for stenosis. No regurgitation. Peak gradient: 2.1mm Hg (D). Left atrium: The atrium was mildly dilated. Right ventricle: The cavity size was normal. Wall thickness was normal. Systolic function was normal. Pulmonic valve: Doppler: Transvalvular velocity was within the normalrange. There was no evidence for stenosis. No regurgitation. Tricuspid valve: Structurally normal valve. Doppler: Transvalvular velocity was within the normal range. There was no evidence for stenosis.No regurgitation. Pulmonary artery: Systolic pressure could not be accurately estimated. Right atrium: The atrium was normal in size. Pericardium: There was no pericardial effusion. Systemic veins: Inferior vena cava: The vessel was normal in size. *MEASUREMENT TABLES* 2D measurements Normal Left ventricle LV internal dimension, ED, chordal level, PLAX *55 mm 43-52 LV internal dimension, ES, chordal level, PLAX *39 mm 23-38 Fractional shortening, chordal level, PLAX *29 % >29 Area, ED, A4C 36.3 cm^2 17.7-47.3 Area, ES, A4C 18.2 cm^2 7.9-31.5 Fractional area change, A4C 50 % --------- Area, ED, A2C 32.8 cm^2 --------- Area, ES, A2C 18.6 cm^2 8.9-28.1 Fractional area change, A2C 43 % 33.7-69 LV posterior wall thickness, ED 10 mm --------- IVS/LVPW ratio, ED 0.8 <1.3 Ejection fraction 55.2 % --------- Stroke volume 81.1 ml --------- Stroke index 34.7 ml/m^2 --------- Volume, ED, MOD, 1-plane 119 ml --------- Volume, ES, MOD, 1-plane 37 ml --------- Ejection fraction, MOD, 1-plane 69 % --------- Stroke volume, MOD, 1-plane 83 ml --------- Volume index, ED, MOD, 1-plane 51 ml/m^2 --------- Volume index, ES, MOD, 1-plane 16 ml/m^2 --------- Stroke index, MOD, 1-plane 35.5 ml/m^2 --------- Volume, ED, MOD, 2-plane 110 ml 62-170 Volume, ES, MOD, 2-plane 44 ml --------- Ejection fraction, MOD, 2-plane 60 % --------- Stroke volume, MOD, 2-plane 66 ml --------- Volume index, ED, MOD, 2-plane 47 ml/m^2 --------- Volume index, ES, MOD, 2-plane 19 ml/m^2 --------- Stroke index, MOD, 2-plane 28.3 ml/m^2 --------- Ventricular septum Septal thickness, ED 8 mm --------- Aorta Root diameter, ED 33 mm --------- Ascending aorta anterior-posterior diameter, S 33 mm --------- Left atrium Anterior-posterior dimension 45 mm --------- Anterior-posterior dimension index 1.93 cm/m^2 <2.2 Superior-inferior dimension, A4C 45 mm 29-53 Doppler measurements Normal Left ventricle IVRT 81 ms 60-100 Ea, lateral annulus, tissue Doppler 9.87 cm/s --------- E/Ea, lateral annulus, tissue Doppler 7.3 --------- Mitral valve Peak E-wave velocity 71.6 cm/s --------- Peak A-wave velocity 54.8 cm/s --------- Deceleration time *239 ms 150-230 Peak gradient, D 2.1 mm Hg --------- Peak E/A ratio 1.3 --------- Legend: Mean values are shown as u=mean value. Asterisk (*) downing values outside specified normal range. Electronically signed by Alonso Gray MD 02/16/2014 12:53 Sophie Salinas MD CARDIAC ECHO ORDERA BLES * DIFFERENTIAL (02/16/2014 5:53 EDT) % Neutrophils 66.5 45.5 - 79.7 % [facility] % Lymphocytes 23.2 15.0 - 46.8 % [facility] % Monocytes 6.7 1.8 - 12.0 % [facility] % Eosinophils 2.7 0.6 - 6.9 % [facility] % Basophils 0.9 0.2 - 1.4 % [facility] ABS Neutrophils 6.29 2.20 - 8.85 K/cmm [facility] ABS Lymphs 2.19 1.09 - 3.30 K/cmm [facility] ABS Monocytes 0.63 0.1 - 0.8 K/cmm [facility] ABS Eosinophils 0.25 0.03 - 0.61 K/cmm [facility] ABS Basophils 0.09 0.01 - 0.11 K/cmm [facility] Type of Diff: Automated [facility] 02/16/2014 5:53 EDT 02/16/2014 5:59 EDT Farhan Alfaro MD HEMATOLOGY & PF4 ORD ERABLES Performing Organization Address City/[facility]/ZIP Co de Phone Number [facility] [address] [place] [address] * (ABNORMAL) HEMAGRAM (02/16/2014 5:53 EDT) WBC 9.46 4.0 - 10.4 K/cmm [facility] RBC 5.30 4.36 - 5.78 M/cmm [facility] Hemoglobin 15.7 13.8 - 17.3 gm/dl [facility] HCT 45.9 39.5 - 50.2 % [facility] MCV 87 81 - 95 fl [facility] MCH 29.5 27.6 - 33.0 pg [facility] MCHC 34.1 32.8 - 36.4 gm/dl [facility] PLT 151 141 - 320 K/cmm [facility] RDW-CV 14.2(H) 11.8 - 14.1 % [facility] 02/16/2014 5:53 EDT 02/16/2014 5:59 EDT Farhan Alfaro MD HEMATOLOGY & PF4 ORD ERABLES Performing Organization Address [facility] Co de Phone Number [facility] [address] [place] [address] * PTT (02/16/2014 5:53 EDT) PTT 30 26 - 37 secs [facility] Comment:Therapeutic Heparin range: 65-100 seconds Blood specimen (specimen) 02/16/2014 5:53 EDT 02/16/2014 5:59 EDT Mahi Mcginnis MD HEMATOLOGY & PF4 OR DERABLES Performing Organization Address City/[facility]/ZIP Co de Phone Number [facility] [address] [place] [address] * CREATININE (02/16/2014 5:53 EDT) Creatinine 0.70 0.66 - 1.25 mg/dl [facility] GFR, Calculated >60 >60 ml/min/1.7 3m2 [facility] Blood specimen (specimen) 02/16/2014 5:53 EDT 02/16/2014 5:59 EDT Farhan Alfaro MD CHEMISTRY & BLOOD GA S ORDERABLES Performing Organization Address [facility] Phone Number [facility] [address] [place] [address] * BUN (02/16/2014 5:53 EDT) BUN 11 10 - 26 mg/dl [facility] Blood specimen (specimen) 02/16/2014 5:53 EDT 02/16/2014 5:59 EDT Farhan Alfaro MD CHEMISTRY & BLOOD GA S ORDERABLES Performing Organization Address [facility] Phone Number [facility] [address] [place] [address] * ELECTROLYTES (02/16/2014 5:53 EDT) Sodium 141 136 - 145 mEq/L [facility] Potassium 4.1 3.5 - 5.0 mEq/L [facility] Chloride 104 96 - 110 mEq/L [facility] CO2 25 24 - 32 mEq/L [facility] Blood specimen (specimen) 02/16/2014 5:53 EDT 02/16/2014 5:59 EDT Farhan Alfaro MD CHEMISTRY & BLOOD GA S ORDERABLES Performing Organization Address [facility] Phone Number [facility] [address] [place] [address] * ALT (02/16/2014 5:53 EDT) ALT 22 21 - 72 U/L [facility] Blood specimen (specimen) 02/16/2014 5:53 EDT 02/16/2014 5:59 EDT Kemi Vo GIZZARD PULLER CHEMISTRY & BLOOD GA S ORDERABLES Performing Organization Address [facility] Co de Phone Number [facility] [address] [place] [address] * AST (02/16/2014 5:53 EDT) AST 15 15 - 46 U/L [facility] Blood specimen (specimen) 02/16/2014 5:53 EDT 02/16/2014 5:59 EDT Kemi Vo GIZZARD PULLER CHEMISTRY & BLOOD GA S ORDERABLES Performing Organization Address [facility] de Phone Number [facility] [address] [place] [address] * LIPID PROFILE (INCLUDES CHOLESTEROL, TRIGLYCERIDES, HDL, LDL) (02/16/2014 5:53 EDT) Cholesterol 154 mg/dl [facility] Comment: Desirable:<200 Borderline High:200-239 High:>gk=145 Triglycerides 254 mg/dl [facility] Comment: Normal:<150 Borderline High:150-199 High:200-499 Very High:>si=179 HDL 37 mg/dl [facility] Comment: Low:<40 Normal:40-60 Desirable: >60 LDL, Calculated 66 mg/dl [facility] Comment: Optimal:<100 Near Optimal:100-129 Borderline High:130-159 High:160-189 Very High:>xy=329 Chol/HDL Ratio 4.2 [facility] Fasting? YES [facility] Non HDL Cholesterol 117 mg/dl [facility] Comment: Desirable:<130 Borderline:130-159 High: 160-189 Very High: >cx=777 Blood specimen (specimen) 02/16/2014 5:53 EDT 02/16/2014 5:59 EDT Kemi Vo GIZZARD PULLER CHEMISTRY & BLOOD GA S ORDERABLES Performing Organization Address [facility] de Phone Number [facility] [address] [place] [address] * CK MB WITH TOTAL CK (02/16/2014 5:53 EDT) CK 47 0 - 250 U/L [facility] MB 0.54 <4.21 ng/ml [facility] Blood specimen (specimen) 02/16/2014 5:53 EDT 02/16/2014 5:59 EDT Kemi Vo NP CHEMISTRY & BLOOD GA S ORDERABLES Performing Organization Address [facility] Co de Phone Number [facility] [address] [place] [address] * (ABNORMAL) GLUCOSE, GLUCOMETER (02/16/2014 5:51 EDT) Glucose, Fingerstick 105(H) 70 - 100 mg/dl [facility] Corporate Legal Secretary ID [id number] [facility] Comment:Test Performed by [facility] [employer] 02/16/2014 5:51 EDT 02/16/2014 5:52 EDT Mahi Mcginnis MD CHEMISTRY & BLOOD G ORDERABLES Performing Organization Address [facility] Co de Phone Number [facility] [address] [place] [address] * GLUCOSE, GLUCOMETER (02/15/2014 20:41 EDT) Glucose, Fingerstick 78 70 - 100 mg/dl [facility] Corporate Legal Secretary ID [id number] [facility] Comment:Test Performed by [employer] 02/15/2014 20:4 1 EDT 02/15/2014 20:45 EDT Mahi Mcginnis MD CHEMISTRY & BLOOD G ORDERABLES Performing Organization Address [facility] Co de Phone Number [facility] [address] [place] [address] * (ABNORMAL) GLUCOSE, GLUCOMETER (02/15/2014 16:44 EDT) Glucose, Fingerstick 154(H) 70 - 100 mg/dl [facility] Corporate Legal Secretary ID [id number] [facility] Comment:Test Performed by [facility] 02/15/2014 16:4 4 EDT 02/15/2014 16:49 EDT Mahi Mcginnis MD CHEMISTRY & BLOOD G ORDERABLES [facility] [address] [place] [address] * EKG 12-LEAD (02/15/2014 14:19 EDT) 02/15/2014 14:1 9 EDT Narrative [facility] EKG - 02/17/2014 8:24 EDT ?[facility] ? Test Date: ?2014-02-15 Pat Name: ? ROMEO COELHO ?Department: ?? [facility] 5 ? Room: ? ME507 Gender: ? 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 [id number] : ?1965 ? Requested By: KEMI VO NP Order Number: [id number] ? Reading : ?? VILMA BENSON MD ? Measurements Intervals ?[place] ? Rate: ? 57 ? P: ?-3 [place]: ? 156 ?QRS: ?22 QRSD: ? 103 ?T: ?44 QT: ? 401 ? QTc: ?392 ? Interpretive Statements SINUS BRADYCARDIA Compared to ECG 02/15/2014 08:43:51 Sinus bradycardia now present I reviewed the tracing and agreed or edited the report. Electronically Signed On 02-17-14 08:24:39 EDT by VILMA BENSON MD. Procedure Note Vilma Benson Jr., MD - 02/17/2014 [facility] Test Date: 2014-02-15 Pat Name: ROMEO COELHO Department: [facility] Room: [facility] Gender: M Returned Goods Repairer: [id number] : 1965 Requested By: KEMI VO NP Order Number: [id number] Reading MD: VILMA BENSON MD Measurements Intervals [place] Rate: 57 P: -3 [place]: 156 QRS: 22 QRSD: 103 T: 44 QT: 401 QTc: 392 Interpretive Statements SINUS BRADYCARDIA Compared to ECG 02/15/2014 08:43:51 Sinus bradycardia now present I reviewed the tracing and agreed or edited the report. ElectronicallySigned On 02-17-14 08:24:39 EDT by VILMA BENSON MD. Kemi Vo GIZZARD PULLER CARDIAC ECG ORDERABL ES Performing Organization Address [facility] de Phone Number [facility] * CK MB WITH TOTAL CK (02/15/2014 14:02 EDT) CK 51 0 - 250 U/L [facility] MB <0.22 <4.21 ng/ml [facility] Blood specimen (specimen) 02/15/2014 14:02 EDT 02/15/2014 14:30 EDT Farhan Alfaro MD CHEMISTRY & BLOOD GA S ORDERABLES Performing Organization Address [facility] Phone Number [facility] [address] [place] [address] * (ABNORMAL) GLUCOSE, GLUCOMETER (02/15/2014 12:38 EDT) Glucose, Fingerstick 106(H) 70 - 100 mg/dl [facility] Corporate Legal Secretary ID [id number] [facility] Comment:Test Performed by [facility] 02/15/2014 12:3 8 EDT 02/15/2014 13:32 EDT Mahi Mcginnis MD CHEMISTRY & BLOOD G ORDERABLES Performing Organization Address [facility] de Phone Number [facility] [address] [place] [address] * LEFT HEART CATH (02/15/2014 10:55 EDT) Anatomical Region Laterality Modality Other 02/15/2014 10:5 5 EDT Narrative 02/15/2014 16:46 EDT Cardiology [address] [place] [address] Catheterization Laboratory Study Patient: Romeo Coelho ? Study Date: ?02/15/2014 ? Accession #: ? [id number] : ? 1965 Diagnostic Attending: ??Vilma Benson Interventional Attending: ?? Vilma Benson Diagnostic Fellow: Kemi Vo Interventional Fellow: Kemi Vo ATTESTATION: Dr. Vilma Benson was present and supervising for the entire procedure, I, Dr. Vilma Benson have reviewed and agree with the findings of this report. PROCEDURE PLAN: Based on the diagnostic study percutaneous coronary intervention is indicated. RESEARCH STUDY: Patient is not enrolled in any research studies. IMPRESSIONS: 1. Severe coronary artery disease, predominantly involving the LAD, status post ?? stent placement. Suspect stent restenosis. 2. Unstable angina, in the territory of the left anterior descending coronary ?? artery. 3. Study suggests left ventricular dysfunction without congestive heart failure, ?? with elevated left-sided pressure. SUMMARY: 1. HPI and indications: Palpitations and dyspnea. Unstable angina. Angina ?? pectoris. The patient was treated with long acting nitrates. 2. LAD: Mid-vessel lesion: There is a 65%restenosis. There is DANIEL grade 3 flow ?? (brisk flow) across the lesion. The lesion is borderline by visual estimate ?? and significant by pressure-derived flow reserve (FFR=0.80). The distal ?? vessel supplies a moderate-sized vascular territory. The lesion is a likely ?? culprit for the patient's anginal symptoms and an ACC/AHA type B2 moderate ?? risk lesion for intervention, with 2 or more adverse characteristics. The ?? lesion was stented using a zotarolimus-eluting stent (see 1st lesion ?? intervention). Following intervention, there is a residual 0% stenosis with ?? an excellent angiographic appearance and DANIEL grade 3 flow (brisk flow). 3. Right coronary: Proximal vessel lesion: There is a 50% stenosis. The lesion ?? is borderline by visual estimate and insignificant by pressure-derived flow ?? reserve. RECOMMENDATIONS: 1. Patient management should include risk factor modification, a cardiac ?? rehabilitation program, weight reduction, and low calorie diet. The patient ?? was counseled regarding the importance of adherence to the prescribed ?? antiplatelet therapy and a low fat diet. 2. Continue clopidogrel (Plavix), for 12mon. 3. Continue aspirin, indefinitely. HISTORY: Palpitations and dyspnea. ??Unstable angina. ??Angina pectoris. The patient was treated with long acting nitrates. ??Functional status: ?? CCS class IV (angina at rest or with any physical activity). ??Risk factors: ??Current tobacco use. Hypertension. Diabetes mellitus; on therapy with oral hypoglycemics. Dyslipidemia. ??Medications: ??Beta blockers. Calcium channel blockers. Anti-anginal therapy. ??Clopidogrel (Plavix). ??Aspirin. ??Statins. LABS, PRIOR TESTS, PROCEDURES AND SURGERY: Serum creatinine (current admission) of 0.8 mg/dl. ??Partial thromboplastin time (PTT) of 48 sec. ??Hematocrit of 44.5 %. ??Platelet count of 150 th/ul. ??Serum potassium (K) of 4.1 mEq/l. ??Glucose of 146 mg/dl. ??Blood urea nitrogen of 10 mg/dl. ??Hemoglobin (pre-procedure) of 15.1 g/dl. ??International normalized ratio (INR) of 1.1. ??Catheterization with coronary intervention (July 28, 2013). STUDY DATA: Study status: ??Cardiac cath: urgent. Percutaneous coronary intervention: urgent. Location: ??Catheterization laboratory. Sex: male. Patient is 48yr old. Weight: 107.1kg. Procedures performed: ?Right radial artery access. ?Left coronary angiography. ?Right coronary angiography. ?Pressure flow reserve measurement. ?Pressure flow reserve measurement. ?Pressure flow reserve measurement. ?Lesion intervention: ?? Percutaneous intervention on the 65% restenosis in the mid LAD. ?Stent placement. ?Stent placement. PROCEDURE: 1. ??Initial setup. The patient was brought to the laboratory in the fasting ?state. A baseline ECG was recorded. Surface ECG leads, automatic cuff blood ?pressure measurements, and pulse oximetric signals were monitored. 2. ??Skin preparation. The planned puncture sites were prepped with chlorhexidine ?and draped in the usual sterile manner. 3. ??Right radial artery access. A 6 FR/10 Terumo Sheath [place] SS .021 sheath was ?advanced into the vessel. 4. ??Selective left coronary angiography. A 6F XB3 catheter was advanced into the ?left coronary vessel ostium under fluoroscopic guidance. Contrast was ?injected by hand. Images were obtained in multiple projections. 5. ??Selective right coronary angiography. A 6fr Runway JR4 catheter was advanced ?into the right coronary vessel ostium under fluoroscopic guidance. Contrast ?was injected by hand. Images were obtained in multiple projections. 6. ??Pressure derived flow reserve measurement for the midLAD. Flow reserve was ?measured using a 175 cm Pressure Wire Aeris Agile Tip pressure-monitoring ?guide-wire. Maximal hyperemia was achieved with 100mcgadenosine. The flow ?reserve (pressure-derived FFR) was calculated to be 0.8. 7. ??Pressure derived flow reserve measurement for the midLAD. Flow reserve was ?measured using a 175 cm Pressure Wire Aeris Agile Tip pressure-monitoring ?guide-wire. Maximal hyperemia was achieved with 100mcgadenosine. The flow ?reserve (pressure-derived FFR) was calculated to be 0.89. 8. ??Catheter exchange. The catheter was exchanged for a 6fr Runway JR4 catheter. 9. ??Pressure derived flow reserve measurement for the proximalright coronary ?artery. Flow reserve was measured using a 175 cm Pressure Wire Aeris Agile ?Tip pressure-monitoring guide-wire. Maximal hyperemia was achieved with ?80mcgadenosine. The flow reserve (pressure-derived FFR) was calculated to be ?0.88. 10. Right femoral artery hemostasis. Mechanical compression was applied. 1st lesion intervention: Percutaneous intervention on the 65% restenosis in the mid LAD. 1. Vessel setup was performed. A 6F XB3 guiding catheter was advanced into the ?? vessel. 2. Stent placement. A 2.25mm (D) x 14mm (L), Resolute stent was advanced across ?? the lesion and deployed with a single inflation and a maximum pressure of ?? 14atm. The resulting stenosis was 0%. 3. Stent placement. A 2.75mm (D) x 14mm (L), Resolute stent was advanced across ?? the lesion and deployed with two inflations and a maximum pressure of 15atm. STUDY COMPLETION: The estimated blood loss was 10ml. All catheters inserted during the procedure were removed. The patient tolerated the procedure well and was discharged from the lab. There were no complications. ??Administered medications: ?? Bivalirudin BOLUS, 0.75mg/kg. ??Bivalirudin DRIP, infusion rate of 1.75mg/kg/hr. ??Adenosine (Adenocard), 100mcg. ??Adenosine (Adenocard), 100mcg. ??Adenosine (Adenocard), 80mcg. ??Heparin, infusion, infusion rate of 1,490units/hr. ??Nitroglycerin, infusion, infusion rate of 12mcg/min. ??Fentanyl, for a total dose of 75mcg. Midazolam, for a total dose of 2mg. ??Nitroglycerin, for a total dose of 100mcg, into the coronary artery. ??Contrast: ?? Isovue 370 140ml (total dose). Fluoroscopy time: ??12.2min. ??Fluoroscopy dose: ??100.4cGy. CORONARY ARTERIES: The coronary circulation is co-dominant. Left main: ??Normal. LAD: ??Mid-vessel lesion: There is a 65%restenosis. There is DANIEL grade 3 flow (brisk flow) across the lesion. The lesion is borderline by visual estimate and significant by pressure-derived flow reserve (FFR=0.80). The distal vessel supplies a moderate-sized vascular territory. The lesion is a likely culprit for the patient's anginal symptoms and an ACC/AHA type B2 moderate risk lesion for intervention, with 2 or more adverse characteristics. The lesion was stented using a zotarolimus-eluting stent (see 1st lesion intervention). Following intervention, there is a residual 0% stenosis with an excellent angiographic appearance and DANIEL grade 3 flow (brisk flow). There were no site complications. Left circumflex: ??Minor luminal irregularities. 1st obtuse marginal: Prior intervention: stent in the proximal OM1. The stented segment is patent. Right coronary: ??Proximal vessel lesion: There is a 50% stenosis. The lesion is borderline by visual estimate and insignificant by pressure-derived flow reserve. ??Mid-vessel lesion: There is a 40% stenosis. Right posterior descending: ??Proximal vessel lesion: There is a 40% stenosis. HEMODYNAMICS: End diastolic pressure in the left ventricle is mildly elevated. Pressure measurements across the aortic valve show no evidence of stenosis. + + + Stage description ? Condition1:Condition 1 - + + + LV pressure s/ed ? 101/18 ? + + + Arterial pressure s/d (m) 100/61 (78) ? + + + * Electronically signed by Vilma Benson Jr., MD 2014-02-15 16:46 Procedure Note 02/15/[address] [place] [address] Catheterization Laboratory Study Patient: Romeo Coelho Study Date:02/15/2014 : 1965 Diagnostic Attending: Vilma Benson Interventional Attending: Vilma Benson Diagnostic Fellow: Kemi Vo Interventional Fellow: Kemi Vo ATTESTATION: Dr. Vilma Benson was present and supervising for the entire procedure, I,Dr. Vilma Benson have reviewed and agree with the findings of this report. PROCEDURE PLAN: Based on the diagnostic study percutaneous coronary intervention isindicated. RESEARCH STUDY: Patient is not enrolled in any research studies. IMPRESSIONS: 1. Severe coronary artery disease, predominantly involving the LAD, statuspost stent placement. Suspect stent restenosis. 2. Unstable angina, in the territory of the left anterior descendingcoronary artery. 3. Study suggests left ventricular dysfunction without congestive heartfailure, with elevated left-sided pressure. SUMMARY: 1. HPI and indications: Palpitations and dyspnea. Unstable angina. Angina pectoris. The patient was treated with long acting nitrates. 2. LAD: Mid-vessel lesion: There is a 65%restenosis. There is DANIEL grade 3flow (brisk flow) across the lesion. The lesion is borderline by visualestimate and significant by pressure-derived flow reserve (FFR=0.80). The distal vessel supplies a moderate-sized vascular territory. The lesion is alikely culprit for the patient's anginal symptoms and an ACC/AHA type [id number] risk lesion for intervention, with 2 or more adverse characteristics.The lesion was stented using a zotarolimus-eluting stent (see 1st lesion intervention). Following intervention, there is a residual 0% stenosiswith an excellent angiographic appearance and DANIEL grade 3 flow (briskflow). 3. Right coronary: Proximal vessel lesion: There is a 50% stenosis. Thelesion is borderline by visual estimate and insignificant by pressure-derivedflow reserve. RECOMMENDATIONS: 1. Patient management should include risk factor modification, a cardiac rehabilitation program, weight reduction, and low calorie diet. Thepatient was counseled regarding the importance of adherence to the prescribed antiplatelet therapy and a low fat diet. 2. Continue clopidogrel (Plavix), for 12mon. 3. Continue aspirin, indefinitely. HISTORY: Palpitations and dyspnea. Unstable angina. Angina pectoris. The patientwas treated with long acting nitrates. Functional status: CCS class IV(angina at rest or with any physical activity). Risk factors: Current tobacco use. Hypertension. Diabetes mellitus; on therapy with oral hypoglycemics. Dyslipidemia. Medications: Beta blockers. Calcium channel blockers. Anti-anginal therapy. Clopidogrel (Plavix). Aspirin. Statins. LABS, PRIOR TESTS, PROCEDURES AND SURGERY: Serum creatinine (current admission) of 0.8 mg/dl. Partial thromboplastintime (PTT) of 48 sec. Hematocrit of 44.5 %. Platelet count of 150 th/ul.Serum potassium (K) of 4.1 mEq/l. Glucose of 146 mg/dl. Blood urea nitrogen of10 mg/dl. Hemoglobin (pre-procedure) of 15.1 g/dl. International normalizedratio (INR) of 1.1. Catheterization with coronary intervention (July). STUDY DATA: Study status: Cardiac cath: urgent. Percutaneous coronary intervention:urgent. Location: Catheterization laboratory. Sex: male. Patient is 48yr old.Weight: 107.1kg. Procedures performed: Right radial artery access. Left coronary angiography. Right coronary angiography. Pressure flow reserve measurement. Pressure flow reserve measurement. Pressure flowreserve measurement. Lesion intervention: Percutaneous interventionon the 65% restenosis in the mid LAD. Stent placement. Stent placement. PROCEDURE: 1. Initial setup. The patient was brought to the laboratory in thefasting state. A baseline ECG was recorded. Surface ECG leads, automatic cuffblood pressure measurements, and pulse oximetric signals were monitored. 2. Skin preparation. The planned puncture sites were prepped withchlorhexidine and draped in the usual sterile manner. 3. Right radial artery access. A 6 FR/10 Terumo Sheath [place] SS .021sheath was advanced into the vessel. 4. Selective left coronary angiography. A 6F XB3 catheter was advancedinto the left coronary vessel ostium under fluoroscopic guidance. Contrast was injected by hand. Images were obtained in multiple projections. 5. Selective right coronary angiography. A 6fr Runway JR4 catheter wasadvanced into the right coronary vessel ostium under fluoroscopic guidance.Contrast was injected by hand. Images were obtained in multiple projections. 6. Pressure derived flow reserve measurement for the midLAD. Flow reservewas measured using a 175 cm Pressure Wire Aeris Agile Tippressure-monitoring guide-wire. Maximal hyperemia was achieved with 100mcgadenosine. Theflow reserve (pressure-derived FFR) was calculated to be 0.8. 7. Pressure derived flow reserve measurement for the midLAD. Flow reservewas measured using a 175 cm Pressure Wire Aeris Agile Tippressure-monitoring guide-wire. Maximal hyperemia was achieved with 100mcgadenosine. Theflow reserve (pressure-derived FFR) was calculated to be 0.89. 8. Catheter exchange. The catheter was exchanged for a 6fr Runway [id number]. 9. Pressure derived flow reserve measurement for the proximalrightcoronary artery. Flow reserve was measured using a 175 cm Pressure Wire AerisAgile Tip pressure-monitoring guide-wire. Maximal hyperemia was achievedwith 80mcgadenosine. The flow reserve (pressure-derived FFR) was calculatedto be 0.88. 10. Right femoral artery hemostasis. Mechanical compression was applied. 1st lesion intervention: Percutaneous intervention on the 65% restenosis in the mid LAD. 1. Vessel setup was performed. A 6F XB3 guiding catheter was advanced intothe vessel. 2. Stent placement. A 2.25mm (D) x 14mm (L), Resolute stent was advancedacross the lesion and deployed with a single inflation and a maximum pressureof 14atm. The resulting stenosis was 0%. 3. Stent placement. A 2.75mm (D) x 14mm (L), Resolute stent was advancedacross the lesion and deployed with two inflations and a maximum pressure [id number]. STUDY COMPLETION: The estimated blood loss was 10ml. All catheters inserted during theprocedure were removed. The patient tolerated the procedure well and was dischargedfrom the lab. There were no complications. Administered medications:Bivalirudin BOLUS, 0.75mg/kg. Bivalirudin DRIP, infusion rate of 1.75mg/kg/hr.Adenosine (Adenocard), 100mcg. Adenosine (Adenocard), 100mcg. Adenosine(Adenocard), 80mcg. Heparin, infusion, infusion rate of 1,490units/hr. Nitroglycerin, infusion, infusion rate of 12mcg/min. Fentanyl, for a total dose [id number]. Midazolam, for a total dose of 2mg. Nitroglycerin, for a total dose [id number], into the coronary artery. Contrast: Isovue 370 140ml (total dose). Fluoroscopy time: 12.2min. Fluoroscopy dose: 100.4cGy. CORONARY ARTERIES: The coronary circulation is co-dominant. Left main: Normal. LAD: Mid-vessel lesion: There is a 65%restenosis. There is DANIEL grade 3flow (brisk flow) across the lesion. The lesion is borderline by visualestimate and significant by pressure-derived flow reserve (FFR=0.80). The distal vessel supplies a moderate-sized vascular territory. The lesion is a likelyculprit for the patient's anginal symptoms and an ACC/AHA type B2 moderate risklesion for intervention, with 2 or more adverse characteristics. The lesion wasstented using a zotarolimus-eluting stent (see 1st lesion intervention). Following intervention, there is a residual 0% stenosis with an excellentangiographic appearance and DANIEL grade 3 flow (brisk flow). There were no sitecomplications. Left circumflex: Minor luminal irregularities. 1st obtuse marginal: Prior intervention: stent in the proximal OM1. Thestented segment is patent. Right coronary: Proximal vessel lesion: There is a 50% stenosis. Thelesion is borderline by visual estimate and insignificant by pressure-derived flow reserve. Mid-vessel lesion: There is a 40% stenosis. Right posterior descending: Proximal vessel lesion: There is a 40%stenosis. HEMODYNAMICS: End diastolic pressure in the left ventricle is mildly elevated. Pressure measurements across the aortic valve show no evidence of stenosis. + + + Stage description Condition1:Condition 1 - + + + LV pressure s/ed 101/18 + + + Arterial pressure s/d (m) 100/61 (78) + + + * Electronically signed by Vilma Benson Jr., MD 2014-02-15 16:46 Farhan Alfaro MD CARDIAC CATH ORDERAB LES * (ABNORMAL) PTT (02/15/2014 8:53 EDT) PTT 96(H) 26 - 37 secs [facility] Comment:Therapeutic Heparin range: 65-100 seconds Blood specimen (specimen) 02/15/2014 8:53 EDT 02/15/2014 9:15 EDT Mahi Mcginnis MD HEMATOLOGY & PF4 OR DERABLES [facility] [address] [place] [address] * EKG 12-LEAD (02/15/2014 8:43 EDT) 02/15/2014 8:43 EDT Narrative [facility] EKG - 02/15/2014 22:25 EDT ?[facility] ? Test Date: ?2014-02-15 Pat Name: ? ROMEO PATELONEY ?Department: ?? [facility] 5 ? Room: ? ME507 Gender: ? 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 [id number] : ?1965 ? Requested By: SOPHIE SALINAS MD Order Number: [id number] ? Reading MD: ?? KATHIE BARON MD ? Measurements Intervals ?[place] ? Rate: ? 61 ? P: ?-1 [place]: ? 149 ?QRS: ?20 QRSD: ? 98 ? T: ?37 QT: ? 386 ? QTc: ?392 ? Interpretive Statements SINUS RHYTHM NORMAL ECG Compared to ECG 02/15/2014 00:29:30 No significant changes I reviewed the tracing and agreed or edited the report. Electronically Signed On 02-15-14 22:25:53 EDT by KATHIE BARON MD. Procedure Note Kathie Baron MD - 02/15/2014 [facility] Test Date: 2014-02-15 Pat Name: ROMEO COELHO Department: [place] [address] Room: [facility] Gender: M Returned Goods Repairer: [id number] : 1965 Requested By: SOPHIE PEREIRA Order Number: [id number] Tiarra MD: KATHIE BARON MD Measurements Intervals [place] Rate: 61 P: -1 [place]: 149 QRS: 20 QRSD: 98 T: 37 QT: 386 QTc: 392 Interpretive Statements SINUS RHYTHM NORMAL ECG Compared to ECG 02/15/2014 00:29:30 No significant changes I reviewed the tracing and agreed or edited the report. ElectronicallySigned On 02-15-14 22:25:53 EDT by KATHIE BARON MD. Sophie Salinas MD CARDIAC ECG ORDERAB LES [facility] EKG * (ABNORMAL) GLUCOSE, GLUCOMETER (02/15/2014 6:40 EDT) Glucose, Fingerstick 146(H) 70 - 100 mg/dl [facility] Corporate Legal Secretary ID [id number] [facility] Comment:Test Performed by [facility] 02/15/2014 6:40 EDT 02/15/2014 6:41 EDT Mahi Mcginnis MD CHEMISTRY & BLOOD G ORDERABLES Performing Organization Address [facility] Co de Phone Number [facility] [address] [place] [address] * (ABNORMAL) DIFFERENTIAL (02/15/2014 5:34 EDT) Pathologist [facility] % Neutrophils 56.9 45.5 - 79.7 % [facility] % Lymphocytes 32.7 15.0 - 46.8 % [facility] % Monocytes 6.3 1.8 - 12.0 % [facility] % Eosinophils 3.0 0.6 - 6.9 % [facility] % Basophils 1.1 0.2 - 1.4 % [facility] ABS Neutrophils 6.01 2.20 - 8.85 K/cmm [facility] ABS Lymphs 3.45(H) 1.09 - 3.30 K/cmm [facility] ABS Monocytes 0.66 0.1 - 0.8 K/cmm [facility] ABS Eosinophils 0.31 0.03 - 0.61 K/cmm [facility] ABS Basophils 0.11 0.01 - 0.11 K/cmm [facility] Type of Diff: Automated [facility] 02/15/2014 5:34 EDT 02/15/2014 5:53 EDT Farhan Alfaro MD HEMATOLOGY & PF4 ORD ERABLES Performing Organization Address City/[facility] Co de Phone Number [facility] [address] [place] [address] * (ABNORMAL) HEMAGRAM (02/15/2014 5:34 EDT) WBC 10.55(H) 4.0 - 10.4 K/cmm [facility] RBC 5.08 4.36 - 5.78 M/cmm [facility] Hemoglobin 15.1 13.8 - 17.3 gm/dl [facility] HCT 44.5 39.5 - 50.2 % [facility] MCV 88 81 - 95 fl [facility] MCH 29.8 27.6 - 33.0 pg [facility] MCHC 34.0 32.8 - 36.4 gm/dl [facility] PLT 150 141 - 320 K/cmm [facility] RDW-CV 14.5(H) 11.8 - 14.1 % [facility] 02/15/2014 5:34 EDT 02/15/2014 5:53 EDT Farhan Alfaro MD HEMATOLOGY & PF4 ORD ERABLES Performing Organization Address City/[facility] Co de Phone Number [facility] [address] [place] [address] * CREATININE (02/15/2014 5:34 EDT) Pathologist [facility] Creatinine 0.80 0.66 - 1.25 mg/dl [facility] GFR, Calculated >60 >60 ml/min/1.[address] [facility] Blood specimen (specimen) 02/15/2014 5:34 EDT 02/15/2014 5:53 EDT Farhan Alfaro MD CHEMISTRY & BLOOD GA S ORDERABLES Performing Organization Address City/[facility] Co de Phone Number [facility] [address] [place] [address] * BUN (02/15/2014 5:34 EDT) BUN 10 10 - 26 mg/dl [facility] Blood specimen (specimen) 02/15/2014 5:34 EDT 02/15/2014 5:53 EDT Farhan Alfaro MD CHEMISTRY & BLOOD GA S ORDERABLES Performing Organization Address [facility] de Phone Number [facility] [address] [place] [address] * ELECTROLYTES (02/15/2014 5:34 EDT) Sodium 143 136 - 145 mEq/L [facility] Potassium 4.1 3.5 - 5.0 mEq/L [facility] Chloride 107 96 - 110 mEq/L [facility] CO2 25 24 - 32 mEq/L [facility] Blood specimen (specimen) 02/15/2014 5:34 EDT 02/15/2014 5:53 EDT Farhan Alfaro MD CHEMISTRY & BLOOD GA S ORDERABLES Performing Organization Address [facility] de Phone Number [facility] [address] [place] [address] * LIPID PROFILE (INCLUDES CHOLESTEROL, TRIGLYCERIDES, HDL, LDL) (02/15/2014 5:34 EDT) Cholesterol 143 mg/dl [facility] Comment: Desirable:<200 Borderline High:200-239 High:>mp=207 Triglycerides 266 mg/dl [facility] Comment: Normal:<150 Borderline High:150-199 High:200-499 Very High:>gc=776 HDL 39 mg/dl [facility] Comment: Low:<40 Normal:40-60 Desirable: >60 LDL, Calculated 51 mg/dl [facility] Comment: Optimal:<100 Near Optimal:100-129 Borderline High:130-159 High:160-189 Very High:>nh=605 Chol/HDL Ratio 3.7 [facility] Fasting? Unknown [facility] Non HDL Cholesterol 104 mg/dl [facility] Comment: Desirable:<130 Borderline:130-159 High: 160-189 Very High: >rl=173 Blood specimen (specimen) 02/15/2014 5:34 EDT 02/15/2014 5:53 EDT Farhan Alfaro MD CHEMISTRY & BLOOD GA S ORDERABLES Performing Organization Address [facility]/ZIP Co de Phone Number [facility] [address] [place] [address] * TROPONIN I (02/15/2014 5:34 EDT) Pathologist [facility] Troponin I (ng/mL) <0.034 <0.034 ng/ml [facility] Blood specimen (specimen) 02/15/2014 5:34 EDT 02/15/2014 5:53 EDT Farhan Alfaro MD CHEMISTRY & BLOOD GA S ORDERABLES Performing Organization Address [facility] Phone Number [facility] [address] [place] [address] * CK MB WITH TOTAL CK (02/15/2014 5:34 EDT) Pathologist [facility] CK 55 0 - 250 U/L [facility] MB 0.25 <4.21 ng/ml [facility] Blood specimen (specimen) 02/15/2014 5:34 EDT 02/15/2014 5:53 EDT Farhan Alfaro MD CHEMISTRY & BLOOD GA S ORDERABLES Performing Organization Address [facility] Phone Number [facility] [address] [place] [address] * (ABNORMAL) PTT (02/15/2014 1:57 EDT) Pathologist [facility] PTT 48(H) 26 - 37 secs [facility] Comment:Therapeutic Heparin range: 65-100 seconds Blood specimen (specimen) 02/15/2014 1:57 EDT 02/15/2014 2:20 EDT Mahi Mcginnis MD HEMATOLOGY & PF4 OR DERABLES Performing Organization Address [facility] de Phone Number [facility] [address] [place] [address] * EKG 12-LEAD (02/15/2014 0:29 EDT) 02/15/2014 0:29 EDT Narrative [facility] EKG - 02/17/2014 11:31 EDT ?[facility] ? Test Date: ?2014-02-15 Pat Name: ? ROMEO COELHO ?Department: ?? [facility] ? Room: ? ME507 Gender: ? 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 [id number] : ?1965 ? Requested By: MAHI ELENA MD Order Number: [id number] ? Reading MD: ?? ODESSA SANTOS MD ? Measurements Intervals ?[place] ? Rate: ? 61 ? P: ?1 [place]: ? 140 ?QRS: ?44 QRSD: ? 101 ?T: ?46 QT: ? 391 ? QTc: ?395 ? Interpretive Statements SINUS RHYTHM Automated Interpretation. ??Physician Interpretation to follow. Compared to ECG 02/14/2014 22:28:03 No significant changes I reviewed the tracing and agreed or edited the report. Electronically Signed On 02-17-14 11:31:38 EDT by ODESSA SANTOS MD. 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 Physician Interpretation to follow. Compared to ECG 02/14/2014 22:28:03 No significant changes I reviewed the tracing and agreed or edited the report. ElectronicallySigned On 02-17-14 11:31:38 EDT by ODESSA SANTOS MD. Mahi Mcginnis MD CARDIAC ECG ORDERAB LES [facility] EKG * (ABNORMAL) DIFFERENTIAL (02/14/2014 22:43 EDT) % Neutrophils 36.5(L) 45.5 - 79.7 % [facility] % Lymphocytes 52.4(H) 15.0 - 46.8 % [facility] % Monocytes 7.1 1.8 - 12.0 % [facility] % Eosinophils 3.1 0.6 - 6.9 % [facility] % Basophils 0.9 0.2 - 1.4 % [facility] ABS Neutrophils 3.15 2.20 - 8.85 K/cmm [facility] ABS Lymphs 4.52(H) 1.09 - 3.30 K/cmm [facility] ABS Monocytes 0.62 0.1 - 0.8 K/cmm [facility] ABS Eosinophils 0.27 0.03 - 0.61 K/cmm [facility] ABS Basophils 0.07 0.01 - 0.11 K/cmm [facility] Type of Diff: Automated [facility] 02/14/2014 22:4 3 EDT 02/14/2014 22:50 EDT Farhan Alfaro MD HEMATOLOGY & PF4 ORD ERABLES [facility] [address] [place] [address] * (ABNORMAL) HEMAGRAM (02/14/2014 22:43 EDT) WBC 8.63 4.0 - 10.4 K/cmm [facility] RBC 5.08 4.36 - 5.78 M/cmm [facility] Hemoglobin 15.0 13.8 - 17.3 gm/dl [facility] HCT 43.9 39.5 - 50.2 % [facility] MCV 86 81 - 95 fl [facility] MCH 29.5 27.6 - 33.0 pg [facility] MCHC 34.2 32.8 - 36.4 gm/dl [facility] PLT 170 141 - 320 K/cmm [facility] RDW-CV 14.5(H) 11.8 - 14.1 % [facility] 02/14/2014 22:4 3 EDT 02/14/2014 22:50 EDT Farhan Alfaro MD HEMATOLOGY & PF4 ORD ERABLES Performing Organization Address [facility] Co de Phone Number [facility] [address] [place] [address] * TROPONIN I (02/14/2014 22:43 EDT) Pathologist [facility] Troponin I (ng/mL) <0.034 <0.034 ng/ml [facility] Blood specimen (specimen) 02/14/2014 22:43 EDT 02/14/2014 22:50 EDT Farhan Alfaro MD CHEMISTRY & BLOOD GA S ORDERABLES Performing Organization Address [facility] de Phone Number [facility] [address] [place] [address] * CK MB WITH TOTAL CK (02/14/2014 22:43 EDT) Pathologist [facility] CK 51 0 - 250 U/L [facility] MB <0.22 <4.21 ng/ml [facility] Blood specimen (specimen) 02/14/2014 22:43 EDT 02/14/2014 22:50 EDT Farhan Alfaro MD CHEMISTRY & BLOOD GA S ORDERABLES Performing Organization Address [facility] de Phone Number [facility] [address] [place] [address] * HEMOGLOBIN A1C (02/14/2014 22:43 EDT) Pathologist [facility] Hemoglobin A1C 6.8 % [facility] Comment: Reference Range: <5.7% Normal 5.7-6.4% Increased risk for diabetes =>6.5% Diagnostic for diabetes (if confirmed) The A1c goal for non adults in general is <7%. The A1c goal for selected patients may be significantly lower than 7% if this can be achieved without significant hypoglycemia or other adverse effects of treatment. Est Avg Glucose 148 mg/dl [facility] Comment: eAG represents the A1c result expressed as average glucose in mg/dl. Blood specimen (specimen) 02/14/2014 22:43 EDT 02/14/2014 22:50 EDT Farhan Alfaro MD CHEMISTRY & BLOOD GA S ORDERABLES Performing Organization Address [facility] de Phone Number [facility] [address] [place] [address] * SCREENING GLUCOSE (02/14/2014 22:43 EDT) Glucose, Screening 94 70 - 100 mg/dl [facility] Blood specimen (specimen) 02/14/2014 22:43 EDT 02/14/2014 22:50 EDT Farhan Alfaro MD CHEMISTRY & BLOOD GA S ORDERABLES Performing Organization Address [facility] [place] [address] * EKG 12-LEAD (02/14/2014 22:28 EDT) 02/14/2014 22:2 8 EDT Narrative [facility] EKG - 02/15/2014 12:55 EDT ?[facility] ? Test Date: ?2014-02-14 Pat Name: ? ROMEO PATELONEY ?Department: ?? [facility] 5 ? Room: ? ME507 Gender: ? 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 [id number] : ?1965 ? Requested By: FARHAN ALFARO MD Order Number: [id number] ? Reading : ?? ROMEO ART MD ? Measurements Intervals ?[place] ? Rate: ? 60 ? P: ?-7 [place]: ? 149 ?QRS: ?31 QRSD: ? 100 ?T: ?35 QT: ? 394 ? QTc: ?395 ? Interpretive Statements SINUS RHYTHM No previous ECG available for comparison I have reviewed the tracing and have either agreed or edited the findings in this report. I reviewed the tracing and agreed or edited the report. Electronically Signed On 02-15-14 12:55:22 EDT by ROMEO ART MD. 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 I reviewed the tracing and agreed or edited the report. ElectronicallySigned On 02-15-14 12:55:22 EDT by ROMEO ART MD. Farhan Alfaro MD CARDIAC ECG ORDERABL ES Performing Organization Address City/[facility] Co de Phone Number [facility] * GLUCOSE, GLUCOMETER (02/14/2014 22:26 EDT) Glucose, Fingerstick 87 70 - 100 mg/dl [facility] Corporate Legal Secretary ID [id number] [facility] Comment:Test Performed by [facility] 02/14/2014 22:2 6 EDT 02/14/2014 22:44 EDT Mahi Mcginnis MD CHEMISTRY & BLOOD G ORDERABLES Performing Organization Address City/[facility] Co de Phone Number [facility] [address] [place] [address] documented in this encounter Visit Diagnoses Diagnosis Chest pain- Primary Chest pain, unspecified Chest pain Chest pain, unspecified CAD (coronary artery disease) Coronary atherosclerosis of unspecified type of vessel, kiana or graft Unstable angina (HCC-CMS) Intermediate coronary syndrome S/P coronary artery stent placement Postsurgical percutaneous transluminal coronary angioplasty status NSTEMI (non-ST elevated myocardial infarction) (HCC-CMS) Acute myocardial infarction, subendocardial infarction, episode of care unspecified Unstable angina (HCC-CMS) Intermediate coronary syndrome CAD (coronary artery disease) Coronary atherosclerosis of unspecified type of vessel, kiana or graft documented in this encounter Administered Medications Inactive Administered Medications - up to 3 most recent administrations Medication Order MAR Action Action Date Dose Rate Site aspirin chewable tablet 81 mg 81 mg, oral, DAILY, First dose on Thu02/15/14 at 0900, Until Discontinued, Routine Given 02/16/2014 9:41 EDT 81 mg Given 02/15/2014 8:25 EDT 81 mg buPROPion (WELLBUTRIN) tablet 150 mg 150 mg, oral, 2 TIMES DAILY, First dose (after last modification) on Thu02/14/14 at 2345, Until Discontinued, Routine Given 02/16/2014 9:43 EDT 150 mg Given 02/15/2014 20:38 EDT 150 mg Given 02/15/2014 8:26 EDT 150 mg clopidogrel (PLAVIX) tablet 75 mg 75 mg, oral, DAILY, First dose on Thu02/15/14 at 0900, Until Discontinued, Routine Given 02/16/2014 9:41 EDT 75 mg Given 02/15/2014 8:25 EDT 75 mg cyclobenzaprine (FLEXERIL) tablet 10 mg 10 mg, oral, 2 TIMES DAILY PRN, Starting on Thu02/14/14 at 2225, Until Thu02/16/14 at 1734, Muscle Spasms, Routine Given 02/16/2014 9:43 EDT 10 mg DILTiazem (TIAZAC) ER capsule 240 mg 240 mg, oral, DAILY, First dose on Thu02/15/14 at 0900, Until Discontinued, Routine Given 02/16/2014 9:45 EDT 240 mg Given 02/15/2014 8:28 EDT 240 mg DULoxetine (CYMBALTA) capsule 60 mg 60 mg, oral, 2 TIMES DAILY, First dose on Thu02/14/14 at 2245, Until Discontinued, Routine Given 02/16/2014 9:44 EDT 60 mg Given 02/15/2014 20:38 EDT 60 mg Given 02/15/2014 8:26 EDT 60 mg gabapentin (NEURONTIN) capsule 300 mg 300 mg, oral, 2 TIMES DAILY BEFORE BREAKFAST & LUNCH, First dose on Thu02/15/14 at 0700, Until Discontinued, Routine Given 02/16/2014 12:04 EDT 300 mg Given 02/16/2014 6:05 EDT 300 mg Given 02/15/2014 13:15 EDT 300 mg gabapentin (NEURONTIN) capsule 600 mg 600 mg, oral, AT BEDTIME, First dose on Thu02/14/14 at 2245, Until Discontinued, Routine Given 02/15/2014 20:39 EDT 6 00 mg Given 02/15/2014 1:42 EDT 600 mg heparin 1,000 unit/mL injection 3,100 Units 3,100 Units (35 Units/kg ? 87.4 kg Adjusted weight), intravenous, PRN, Starting on Thu02/14/14 at 2223, Until Thu02/16/14 at 1734, Other, Routine Given 02/15/2014 2:48 EDT 3,100 Units heparin in 08/25 NS 25,000 unit/250 mL infusion 17 Units/kg/hr ? 87.4 kg Adjusted weight (rounded to 14.9 mL/hr), intravenous, CONTINUOUS, Starting on Thu02/14/14 at 2245, Until Thu02/16/14 at 1734, Routine Rate Documented 02/15/2014 8:31 EDT 17 Units/kg/hr 14.9 mL/hr New Bag 02/15/2014 2:48 EDT 17 Units/kg/hr 14.9 mL/hr New Bag 02/14/2014 23:30 EDT 15 Units/kg/hr 13.1 mL/hr insulin aspart (NOVOLOG FLEXPEN) injection subcutaneous, 3 TIMES DAILY WITH MEALS, First dose on Thu02/15/14 at 0800, Until Discontinued, Routine Given 02/15/2014 17:44 EDT 3 Units metoprolol (LOPRESSOR) tablet 100 mg 100 mg, oral, 2 TIMES DAILY, First dose on Thu02/14/14 at 2245, Until Discontinued, Routine Given 02/16/2014 9:43 EDT 10 0 mg Given 02/15/2014 20:39 EDT 100 mg Given 02/15/2014 8:28 EDT 100 mg morphine injection 2-4 mg 2-4 mg, intravenous, EVERY 5 MIN PRN, Starting on Thu02/14/14 at 2159, Until Thu02/16/14 at 1734, Pain, Routine Given 02/15/2014 8:53 EDT 2 mg Given 02/15/2014 1:06 EDT 2 mg nitroGLYCERIN (NITROSTAT) SL tablet 0.4 mg 0.4 mg, sublingual, EVERY 5 MIN PRN, Starting on Thu02/14/14 at 2223, Until Thu02/16/14 at 1734, Chest Pain, Routine Given 02/15/2014 0:42 EDT 0.4 mg Given 02/15/2014 0:37 EDT 0.4 mg Given 02/15/2014 0:30 EDT 0.4 mg nitroglycerin 400 mcg/ml in D5W 250 ml infusion 5 mcg/min (rounded to 0.8 mL/hr), intravenous, CONTINUOUS, Starting on Thu02/15/14 at 0115, Until Thu02/16/14 at 1734, Routine Rate Change 02/15/2014 8:33 EDT 12 mcg/min 1.8 mL/hr New Bag 02/15/2014 8:31 EDT 10 mcg/min 1.5 mL/hr New Bag 02/15/2014 0:58 EDT 7 mcg/min 1.1 mL/hr rosuvastatin (CRESTOR) tablet 20 mg 20 mg, oral, DAILY, First dose (after last modification) on Thu02/15/14 at 1015, Until Discontinued, Routine Given 02/16/2014 9:44 EDT 20 mg Given 02/15/2014 13:16 EDT 20 mg sodium chloride 0.9 % flush 3 mL 3 mL, intravenous, EVERY 8 HOURS, First dose on Thu02/15/14 at 0000, Until Discontinued, Routine Given 02/16/2014 8:50 EDT 10 mL Given 02/15/2014 23:25 EDT 3 mL Given 02/15/2014 17:01 EDT 3 mL documented in this encounter Discontinued Medications Medication Sig Discontinue Reason Start Date End Da te rosuvastatin (CRESTOR) 10 mg tablet Take 10 mg by mouth daily. 02/16/2014 clopidogrel (PLAVIX) 75 mg tablet Take 75 mg by mouth daily. 02/16/2014 documented as of this encounter Historical Medications * This list may reflect changes made after this encounter. Medication Sig Dispensed Refills Start Date End Date pantoprazole (PROTONIX) 40 mg tablet Take 1 Tablet by mouth 2 times daily. nitroGLYCERIN (NITROSTAT) 0.[address] 1 Tablet under the tongue every 5 minutes as needed for Chest Pain. metFORMIN (GLUCOPHAGE) 1,000 mg tablet Take 1 Tablet by mouth 2 times daily. gabapentin (NEURONTIN) 800 mg tablet Take 1 Tablet by mouth 3 times daily. 800 mg TID DULoxetine (CYMBALTA) 60 mg capsule Take 1 Capsule by mouth 2 times daily. cyclobenzaprine (FLEXERIL) 10 mg tablet Take 1 Tablet by mouth at bedtime as needed for Muscle Spasms. buPROPion (WELLBUTRIN SR) 150 mg SR tablet Take 1 Tablet by mouth 2 times daily. rosuvastatin (CRESTOR) 10 mg tablet Take 10 mg by mouth daily. 02/16/2014 metoprolol (LOPRESSOR) 100 mg tablet Take 100 mg by mouth 2 times daily. 04/08/2023 magnesium oxide (MAG-OX) 400 mg tablet Take 400 mg by mouth 2 times daily. 04/09/2023 LEVALBUTEROL HCL INHALATION Inhale as directed. 04/09/20 isosorbide mononitrate (IMDUR) 120 mg CR tablet Take 120 mg by mouth daily. 04/09/2023 furosemide (LASIX) 20 mg tablet Take 20 mg by mouth daily as needed. 04/09/2023 DILTiazem (TIAZAC) 240 mg SR capsule Take 120 mg by mouth daily 04/09/2023 clopidogrel (PLAVIX) 75 mg tablet Take 75 mg by mouth daily. 02/16/2014 aspirin chewable 81 mg tablet Take 81 mg by mouth daily. 03/16/2015 added in this encounter Active and Recently Administered Medications Times are shown in EDT. Scheduled Medication Order 02/14/2014 02/15/2014 02/16/2014 aspirin chewable tablet 81 mg (CANCELED) 81 mg, oral, DAILY, First dose on Thu02/15/14 at 0900, Until Discontinued, Routine 0825 (Given - Provider: Gina Mix RN) 0941 (Given - Provider: Rosario Russo RN) buPROPion (WELLBUTRIN) tablet 150 mg (CANCELED) 150 mg, oral, 2 TIMES DAILY, First dose (after last modification) on Thu02/14/14 at 2345, Until Discontinued, Routine 0142 (Given - Provider: Asad Bauman RN - Comment: nausea)0826 (Given - Provider: Gina Mix RN)2037 (Given - Provider: Asad Bauman RN) 0943 (Given - Provider: Rosario Russo, VERO) clopidogrel (PLAVIX) tablet 75 mg (CANCELED) 75 mg, oral, DAILY, First dose on Thu02/15/14 at 0900, Until Discontinued, Routine 0825 (Given - Provider: Gina Mix RN) 0941 (Given - Provider: Rosario Russo, VERO) DILTiazem (TIAZAC) ER capsule 240 mg (CANCELED) 240 mg, oral, DAILY, First dose on Thu02/15/14 at 0900, Until Discontinued, Routine 0828 (Given - Provider: Gina Mix RN) 0945 (Given - Provider: Rosario Russo RN) DULoxetine (CYMBALTA) capsule 60 mg (CANCELED) 60 mg, oral, 2 TIMES DAILY, First dose on Thu02/14/14 at 2245, Until Discontinued, Routine 0141 (Given - Provider: Asad Bauman RN - Comment: nausea)08 (Given - Provider: Gina Mix RN)203 (Given - Provider: Asad Bauman RN) 0944 (Given - Provider: Rosario Russo RN) gabapentin (NEURONTIN) capsule 300 mg (CANCELED) 300 mg, oral, 2 TIMES DAILY BEFORE BREAKFAST & LUNCH, First dose on Thu02/15/14 at 0700, Until Discontinued, Routine 0613 (Hold - Provider: Asad Bauman RN - Reason: Patient/family refused - Comment: wants to wait until after [facility])1315 (Given - Provider: Gina Mix RN - Comment: off unit) 0605 (Given - Provider: sAad Bauman, VERO)1204 (Given - Provider: Rosario Russo RN - Comment: off unit) gabapentin (NEURONTIN) capsule 600 mg (CANCELED) 600 mg, oral, AT BEDTIME, First dose on Thu02/14/14 at 2245, Until Discontinued, Routine 0142 (Given - Provider: Asad Bauman RN - Comment: nausea)2038 (Given - Provider: Asad Bauman RN) insulin aspart (NOVOLOG FLEXPEN) injection (CANCELED) subcutaneous, 3 TIMES DAILY WITH MEALS, First dose on Thu02/15/14 at 0800, Until Discontinued, Routine 0830 (Hold - Provider: Gina Mix RN - Reason: NPO)1314 (Not Given - Provider: Gina Mix RN - Reason: Order parameters not met)1744 (Given - Provider: Alfredo Marc RN) 0800 (Not Given - Provider: Rosario Russo RN - Reason: Order parameters not met)1202 (Not Given - Provider: Rosario Russo RN - Reason: Order parameters not met) metoprolol (LOPRESSOR) tablet 100 mg (CANCELED) 100 mg, oral, 2 TIMES DAILY, First dose on Thu02/14/14 at 2245, Until Discontinued, Routine 0140 (Given - Provider: Asad Bauman RN - Comment: nausea)0828 (Given - Provider: Gina Mix RN)2039 (Given - Provider: Asad Bauman, RN) 0943 (Given - Provider: Rosario Russo, VERO) rosuvastatin (CRESTOR) tablet 20 mg (CANCELED) 20 mg, oral, DAILY, First dose (after last modification) on Thu02/15/14 at 1015, Until Discontinued, Routine 1316 (Given - Provider: Gina Mix RN - Comment: off unit) 0944 (Given - Provider: Rosario Russo RN) sodium chloride 0.9 % flush 3 mL (CANCELED) 3 mL, intravenous, EVERY 8 HOURS, First dose on Thu02/15/14 at 0000, Until Discontinued, Routine 2336 (Given - Provider: Asad Bauman RN) 0825 (Given - Provider: Gina Mix RN)1701 (Given - Provider: Alfredo Marc RN)2325 (Given - Provider: Asad Bauman RN) 0850 (Given - Provider: Rosario Russo, VERO)1530 (Canceled Entry - Provider: Rosario Russo, VERO) Continuous Medication Order 02/14/2014 02/15/2014 02/16/2014 heparin in 1/2 NS 25,000 unit/250 mL infusion (CANCELED) 17 Units/kg/hr ? 87.4 kg Adjusted weight (rounded to 14.9 mL/hr), intravenous, CONTINUOUS, Starting on Thu02/14/14 at 2245, Until Martha 02/16/14 at 1734, Routine 2330 (New Bag - Provider: Asad Bauman RN) 0248 (New Bag - Provider: Asad Bauman RN)0831 (Rate Documented - Provider: Gina Mix RN)1317 (Hold - Provider: Gina Mix RN - Reason: Other - Comment: s/p [facility]) nitroglycerin 400 mcg/ml in D5W 250 ml infusion (CANCELED) 5 mcg/min (rounded to 0.8 mL/hr), intravenous, CONTINUOUS, Starting on Thu02/15/14 at 0115, Until Thu02/16/14 at 1734, Routine 0058 (New Bag - Provider: Asad Bauman RN)0831 (New Bag - Provider: Gina Mix RN)0833 (Rate Change - Provider: Gina Mix RN)1317 (Hold - Provider: Gina Mix RN - Reason: Other - Comment: s/p [facility]) PRN Medication Order 02/14/2014 02/15/2014 02/16/2014 cyclobenzaprine (FLEXERIL) tablet 10 mg (CANCELED) 10 mg, oral, 2 TIMES DAILY PRN, Starting on Thu02/14/14 at 2225, Until Thu02/16/14 at 1734, Muscle Spasms, Routine 0943 (Given - Provid er: Rosario Russo RN) heparin 1,000 unit/mL injection 3,100 Units (CANCELED)(Linked Group 1) 3,100 Units (35 Units/kg ? 87.4 kg Adjusted weight), intravenous, PRN, Starting on Thu02/14/14 at 2223, Until Thu02/16/14 at 1734, Other, Routine 0248 (Given - Provider: Asad Bauman, VERO) morphine injection 2-4 mg (CANCELED) 2-4 mg, intravenous, EVERY 5 MIN PRN, Starting on Thu02/14/14 at 2159, Until Thu02/16/14 at 1734, Pain, Routine 0106 (Given - Provider: Asad Bauman, VERO)0853 (Given - Provider: Gina Mix RN) nitroGLYCERIN (NITROSTAT) SL tablet 0.4 mg (CANCELED) 0.4 mg, sublingual, EVERY 5 MIN PRN, Starting on Thu02/14/14 at 2223, Until Thu02/16/14 at 1734, Chest Pain, Routine 0030 (Given - Provider: Asad Bauman, RN)0037 (Given - Provider: Asad Bauman, RN)0042 (Given - Provider: Asad Bauman, RN) Linked Groups Order Group 1: heparin 1,000 unit/mL injection 6,100 Units (CANCELED) 6,100 Units (70 Units/kg ? 87.4 kg Adjusted weight), intravenous, PRN, Starting on Thu02/14/14 at 2223, Until Martha 02/16/14 at 1734, Other, Routine Or heparin 1,000 unit/mL injection 3,100 Units (CANCELED)Jump to med 3,100 Units (35 Units/kg ? 87.4 kg Adjusted weight), intravenous, PRN, Starting on Thu02/14/14 at 2223, Until Martha 02/16/14 at 1734, Other, Routine documented in this encounter Orders Medications Ordered That Nuno ht Not Have Been Administered Count Last Ordered Date First Ordered Date acetaminophen (TYLENOL) tablet 650 mg 1 isosorbide mononitrate (IMDU R) CR tablet 120 mg 1 02/15/2014 lidocaine-EPINEPHrine 2 %-1: 100,000 injection 5-10 mL 1 02/15/2014 rosuvastatin (CRESTOR) tablet 10 mg 1 02/15 buPROPion (WELLBUTRIN) tablet 150 mg 1 01/23 dextrose 50 % solution 12.5 g 1 02/14/2014 glucagon (human recombinant) injection 1 mg 1 02/14/2014 heparin 1,000 unit/mL inject ion 6,100 Units 1 02/14/2014 insulin aspart (NOVOLOG FLEXPEN) injection 1 02/14/2014 nitroglycerin 400 mcg/ml in D5W 250 ml infusion 1 02/14/2014 Diet Count Last Ordered Date First Orde red Date DISCHARGE DIET 1 02/15/2014 Nursing Count Last Ordered Date First Orde red Date ACTIVITY INSTRUCTIONS 3 02/15/2014 BATHING INSTRUCTIONS 02/15/2014 PATIENT AT LOW RISK FOR VTE: RISK OF PHARMACOLOGIC PROPHYLAXIS OUTWEIG 1 02/15/2014 WOUND CARE INSTRUCTIONS 2 02/15/2014 CONTRAINDICATION TO ANTICOAG ULATION THERAPY 1 02/14/2014 Admission Count Last Ordered Date First Orde red Date STATUS: INPATIENT ACUTE ADMISSION 1 014 STATUS: OUTPATIENT OBSERVATION SERVICES 1 0 02/14/2014 Transfer Count Last Ordered Date First Orde red Date NOTIFY PPS OF DISCHARGE COMPLETE 1 02/17/20 14 Discharge Count Last Ordered Date First Orde red Date DISCHARGE PATIENT 1 02/16/2014 Legal Count Last Ordered Date First Orde red Date MISCELLANEOUS DISCHARGE INSTRUCTIONS 6 01/23 Consult to Social Work Count Last Ordered Date First Ordered Date CONSULT SOCIAL WORK 1 02/14/2014 documented in this encounter Care Teams Rotary Drier Operator Relationship Specialty Start Date End Date Sarita Lim MD [address] [place] [id number] PCP - General 12/17/11 documented as of this encounter
--- OUTSIDE RECORDS SUMMARY | 2024-04-30 13:45 | XMS_ITS | Encounter Summary ---
Author Organization [facility] Address [address] [place] [address] Care Team Providers Care Detective Private Eye Name Role Phone Unavailable Primary Care Provider Unavailabl e Encounter Details Date Type Department Care Team (Late st Contact Info) Description 11/13/2008 Before PRISM Converted Visit ([facility]) [facility] conversion [address] [place] [address] Irving Jha MD [address] [place] [id number] Social History Tobacco Use Types Packs/Day Years [...] Date/Time Associated Diagnosis Comments SURGICAL PATHOLOGY Routine 11/13/2008 0:00 EDT documented in this encounter Results * SURGICAL PATHOLOGY (11/13/2008 0:00 EDT) Pathology Report: SURGICAL PATHOLOGY REPORT ? Reports generated via electronic interface contain original data; ? however they are lacking the format of the original report. ? Caution should be taken when reading/interpreti ng unformatted reports. ? Name: ? SARAVANAN, ROMEO A ? Accession #: ? [id number] ? : ? 1965 (Age: 43) ??M ? Collect Date: ? 11/13/2008 ? Location: ? [facility] ? Receive Date: ? 11/14/2008 ? Provider: IRVING JHA MD ? Copy to: SARITA CHEW MD ? Final Pathologic Diagnosis: ? A. ?Small bowel, terminal ileum, biopsies: ? 1. ?Ileal-type mucosa with focal and superficial, acute ileitis. ??See ?? comment. ? B. ?Rectum, biopsies: ? 1. ?Rectal mucosa with focal surface hyperplastic change. ? Comment: ? Histologic sections of the ileal mucosa demonstrate prominent lymphoid ? follicle formation. ??The normal villous architecture is intact without evidence of chronicity, granulomas, or significant inflammation. ??There is focal and ? superficial, acute ileitis without erosion. ??Associated with this focus is a ? small collection of acute inflammatory cells along the luminal surface. ??These ?? findings are non-specific with differential consideration including self-limited ileitis, infectious etiologies, adverse drug reaction, and ischemia. ? Correlation with endoscopic appearance and clinical impression is essential. ? Deeper levels of tissue were reviewed on the rectal biopsy (specimen B). ??( ?? Hal)/[facility] ? Document reviewed and electronically signed by: ? Joo Hong, ? Report ??Date: 11/17/2008 17:10 ? By the signature above, the attending physician certifies that he/she has ? personally conducted a gross and/or microscopic examination of the described ? specimens and rendered or confirmed the above diagnosis. ? Specimen(s) Received: ? A. ?Bx terminal ileum ? B. ? Bx rectum ? Clinical History: ? Rectal bleeding, F/H colon cancer ? Gross Description: ? Received in [facility]'s fixative labelled Romeo Coe and #1 bx ? terminal ileum are three biopsies which vary in size from 0.3 x 0.2 x 0.1 cm up to 0.4 x 0.3 x 0.2 cm. ??The specimen is submitted intact as (A). ? [facility] Romeo Coe and #2 rectum bx are three biopsies which vary in size from 0.3 x 0.1 x 0.1 cm up to 0.4 x 0.3 x 0.3 cm. ??The specimen is submitted intact as (B). ??(DIANE Rothsichristy)/[facility] ? End of Report ? [facility] 11/13/2008 11/14/2008 9:2 2 EDT Irving Jha MD PATHOLOGY ORDERABLE S [facility] [address] [place] [address] documented in this encounter Visit Diagnoses Not on filedocumented in this encounter
--- OUTSIDE RECORDS SUMMARY | 2024-04-30 13:45 | XMS_ITS | Encounter Summary ---
Author Organization [facility] Address [address] [place] [address] Care Team Providers Care Lead Pourer Name Role Phone Sarita Lim MD Primary Care Provider [phone] Encounter Details Date Type Department Care Team (Latest Contact Info) Description 03/15/2015 1:06 EDT - 03/16/2015 12:40 EDT Hospital Encounter [facility] [address], [place] [id number] Landon Dumont MD [address] [place] [phone] Venu Veliz MD [address] [place] [phone] CVA (cerebral vascular accident) ([facility]) ([facility]) (Primary Dx); tPA/rtPA given at another facility within 24 hrs prior to admission; Hemispheric carotid artery syndrome Discharge Disposition: Home or Self Care Social History Tobacco Use Types Packs/Day Years Used Date Smoking Tobacco: Every Day Cigarettes Tobacco Cessation:Ready to Q uit: Yes Comments:pt reports difficulty quitting with being smoker [...] Sign Reading Time Taken Comments Blood Pressure 134/84 03/16/2015 0958 EDT Pulse - - Temperature 36.4 ??C (97.5 ??F) 03/16/2015 0741 EDT Respiratory Rate 14 03/16/2015 0958 EDT Oxygen Saturation 97% 03/16/2015 0912 EDT Inhaled Oxygen Concentration - - Weight 109.3 kg (241 lb) 03/15/2015 0000 EDT Height 177.8 cm (5' 10) 03/15/2015 0000 EDT Body Mass Index 34.58 03/15/2015 0000 EDT documented in this encounter Functional Status [...] as of this encounter Discharge Summaries * Venu Veliz MD - 03/16/2015 0856 EDT Neurology Discharge Summary Admission Date: 03/15/2015 Discharge Date: 03/16/2015 Admitting Diagnosis: Ischemic stroke Admitted from: Transfer from Principal/Final Diagnosis: Transient ischemic attack Additional Diagnoses: Hypertension Type 2 diabetes mellitus Hyperlipidemia Coronary artery disease Current tobacco smoking Suspected obstructive sleep apnea Hospital Course: Mr. Coelho is a 49-year-old right-handed male with a history of hypertension, hyperlipidemia, type 2 diabetes mellitus, coronary artery disease, and current tobacco smoking who presented to [facility] with acute onset right face arm and leg weakness after a transesophageal echocardiogram. Given the clinical diagnosis of ischemic stroke with (with a CT head that did notshow any evidence of hemorrhage), he was treated acutely with IV tPA within the time window and transferred to the [facility] for post-IV TPA ICU monitoring and care, as well as evaluation for the etiology of his stroke. Prior to admission, he was taking aspirin 325 mg, clopidogrel 75 mg daily, metformin, and rosuvastatin 40 mg to manage his microvascular risk factors. However, he was smoking which contributed to his condition, and he was encouraged to quit smoking andsmoking cessation counseling was ordered. He improved to baseline and repeat MRI did not show any evidence of infarction or hemorrhage. He continued his prior to admission medications with encouragement to quit smoking. He did not require physical or occupational therapy, and was discharged home onroom air. 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 He has a neurologist (Dr. Negron) in [facility], and will be following up there in 5 days after discharge. Additionally, he reports snoring and his notes apena during sleep. He should be evaluated for obstructive sleep apnea as treatment can also be a protective factor for stroke prevention. Did patient have a stroke or TIA? Yes Stroke size: none/small Location: TIA (no stroke), localizes to left internal capsule (microvascular) Recent NIHSS Values 03/15/2015 NIHSS Testing Interval: 2 hr post treatment Interval Exam Date: 03/14/15 Interval Exam Time: 2233 Level of Consciousness (1a. ): 0 LOC Questions (1b. ): 0 LOC Commands (1c. ): 0 Best Gaze (2. ): 0 Visual (3. ): 0 Facial Palsy (4. ): 1 Motor Arm, Left (5a. ): 0 Motor Arm, Rigtht (5b. ): 1 Motor Leg, Left (6a. ): 0 Motor Leg, Right (6a. ): 1 Limb Ataxia (7. ): 0 Sensory (8. ): 1 Best Language (9. ): 0 Dysarthria (10.): 0 Extinction And Inattention: 0 Total: 4 Location of stroke related stenoses or occlusions: microvascular Modified Akhil Scale: 0: No symptoms Evidence of A-fib or flutter observed or identified during the hospital admission? No Cholesterol reducing medications prescribed upon discharge? Yes Intensive statin therapy deemed appropriate? Yes, Rosuvastatin (Crestor) 40mg total daily dose Antithrombotic prescribed at discharge? Yes Antiplatelet ordered? Yes Anticoagulations ordered? N/A Nimodipine treatment started within 24 hours of diagnosis and continued to discharge or < 21 days? N/A Complications from coiling or clipping? N/A EVD? N/A Shunt placed? N/A New Diabetes? No Does patient require anti-smoking Tx? Yes, smoking cessation counseling Carotid intervention post discharge plan? No Follow up with Neurology? Yes, Appt to be scheduled Additional Relevant Studies at Discharge: EKG: Normal sinus rhythm Telemetry: occasional PVCs, no atrial fibrillation Stroke labs: Hemoglobin A1c 6.4 TSH 1.97 LDL 33 (on rosuvastatin 40 mg) Carotid ultrasound: 17-49% stenosis in bilateral internal carotid arteries, anterograde vertebral artery flow Transesophageal echocardiogram: EF 65%, normal systolic function with normal loss weakness. No regional wall motion abnormalities with mild left atrial dilation and normal right ventricular systolic function. Additionally noted no cardiac source of emboli. CT head: No acute intracranial findings (no hemorrhage, no evidence of infarct) Chest X-ray: normal MRI head: no acute stroke Last Lab Results at Discharge: BUN: Lab Results Component Value Date BUN 9* 03/16/2015 Creatinine: Lab Results Component Value Date CREATININE 0.77 03/16/2015 CBC: Lab Results Component Value Date WBC 7.36 03/16/2015 RBC 4.80 03/16/2015 HGB 14.4 03/16/2015 HCT 42.4 03/16/2015 MCV 88 03/16/2015 MCH 30.0 03/16/2015 MCHC 34.0 03/16/2015 PLT 163 03/16/2015 DIFFTYPE Automated 03/16/2015 Electrolytes: Lab Results Component Value Date NA 145 03/16/2015 K 3.9 03/16/2015 CL 108 03/16/2015 CO2 25 03/16/2015 Lipid Profile: Lab Results Component Value Date CHOL 118 03/15/2015 TRIG 274 03/15/2015 HDL 30 03/15/2015 LDLBASE 33 03/15/2015 CHOLHDL 3.9 03/15/2015 Condition at Discharge: Improved NIHSS Score: 4 Assessment at Discharge: BP 140/80 mmHg Temp(Src) 36.4 ??C (97.5 ??F) (Tympanic) Resp 14 Ht 177.8 cm (70) Wt 109.317 kg (241 lb) BMI 34.58 kg/m2 SpO2 97% on room air Neurological Exam at Discharge: MS: AAOx3, no language impairments toe trimmer: PERRL, EOMI, sensation intact to light touch symmetrically and bilaterally, symmetric nasolabial folds, smile and eyebrow raise, symmetric palatal raise, tongue midline, 5/5 shoulder shrug and sternocleidomastoid Motor: normal muscle bulk and tone. Strength 5/5 bilaterally in upper and lower extremities DTRs: 2+ bilaterally in biceps, triceps, brachioradialis, patellar, and achilles Sensation: At baseline, reports mild reduced sensation to the right arm and leg (80% of left) Coordination: finger to nose and heel to price intact bilaterally with no truncal ataxia Gait: normal gait Medications at Discharge: Romeo Coelho Home Medication Instructions ANGELA:[id number] Printed on:03/16/15 0844 Medication Information aspirin 325 mg tablet Take 325 mg by mouth daily buPROPion (WELLBUTRIN) 75 mg tablet Take 150 mg by mouth 2 times daily. clopidogrel (PLAVIX) 75 mg tablet Take 1 Tab by mouth daily. cyclobenzaprine (FLEXERIL) 10 mg tablet Take 10 mg by mouth 2 times daily as needed for Muscle Spasms. DILTiazem (TIAZAC) 240 mg SR capsule Take 120 mg by mouth daily DULoxetine (CYMBALTA) 60 mg capsule Take 60 mg by mouth 2 times daily. furosemide (LASIX) 20 mg tablet Take 20 mg by mouth daily as needed. gabapentin (NEURONTIN) 300 mg capsule Take 600 mg by mouth 3 times daily 300 am, 300 lunch, 600 qhs isosorbide mononitrate (IMDUR) 120 mg CR tablet Take 120 mg by mouth daily. LEVALBUTEROL HCL INHALATION Inhale as directed. magnesium oxide (MAG-OX) 400 mg tablet Take 400 mg by mouth 2 times daily. metFORMIN (GLUCOPHAGE) 850 mg tablet Take 850 mg by mouth 2 times daily. metoprolol (LOPRESSOR) 100 mg tablet Take 100 mg by mouth 2 times daily. nitroGLYCERIN (NITROSTAT) 0.[address] 0.4 mg under the tongue every 5 minutes as needed for Chest Pain. pantoprazole (PROTONIX) 40 mg tablet Take 40 mg by mouth daily. ranolazine (RANEXA) 500 mg SR tablet Take 1 Tab by mouth 2 times daily. rosuvastatin (CRESTOR) 20 mg tablet Take 1 Tab by mouth daily. Outstanding Labs / Studies: None There is no immunization history on file for this patient. Discharge planning, medications, including potential side effects/complications of therapy as well as important follow-ups were discussed by this narrative writer with the patient on 03/16/2015. Patient voiced understanding of the discharge planning. All questions were answered and there were no barriers for discharge. Additionally, I , or the attending, also personally educated the patient regarding the following: Cause of stroke: Yes Personal risk factors for stroke: Yes Warning signs of stroke FAST: Yes Activating 911: Yes F/U appointments after discharge: Yes Medications prescribed: Yes Educational items addressed at discharge: Cause of stroke, Personal risk factors for stroke, Warning signs of stroke FAST, Activation of 911 for stroke, F/U appointments after discharge, Medications prescribed at discharge Expected Follow-up Appointments and Clinical Issues Requiring Follow Up: 1) Follow up with your neurologist (03/21/15), Dr. Negron in [place] - Transient ischemic attack, neuro anatomically localizes to the left internal capsule- treated with IV TPA and had complete resolution of symptoms. - Etiology: Suspect microvascular, in the setting of risk factors: Hypertension, hyperlipidemia, diabetes mellitus, current tobacco smoking, and suspected obstructive sleep apnea - given smoking cessation counseling, needs to continue to work on quitting after discharge - Evaluated risk factors and will continue home aspirin 325 mg, Plavix 75 mg and rosuvastatin 40 mgdaily for secondary stroke prophylaxis. - recommend a loop recorder given absence of finding atrial fibrillation on prior outpatient cardiac monitoring. - recommend outpatient sleep study to evaluate for suspected obstructive sleep apnea 2) Follow up with PCP in 1-2 weeks after discharge - continued smoking cessation counseling Patient Discharged to: Home Discharge Summary Completed: Yes Rob Mayorga MD Neurology Resident, PGY-3 Pager # [phone] (Pager [phone] after hours or on weekends) Attestation statement: I saw and examined the patient with the resident/fellow on 03/16/15. I agreewith the findings and plan of care documented in the resident's/fellow's note. The note has been edited prior to signing. Venu Veliz MD MSc Sales And Service Engineer [facility] Board certified Adult Neurology Adult Neurology, Neuro-Oncology and Neurophysiology [address] [facility], [address] documented in this encounter Discharge Instructions * Appointments* Antonio Andersen - 03/16/2015 8:56 EDT Please follow-up with Dr. Edel Negron [facility]. [address], [address] [place] [address] Appointment is scheduled for February at 3:00pm Please bring the CD containing imaging studies done while at [facility] documented in this encounter Medications at Time [...] documented in this encounter Progress Notes * Nery Townsend - 03/16/2015 1238 EDT Discharge Note: arranged transportation with [facility] transportation. They will pickling operator Pt outside [facility] at 12:45. Medicare IM has been signed. Nery Townsend CAT DRIVER #[id number] * eNry Townsend - 03/16/2015 1058 EDT Initial Case Management/Social Work Assessment and Discharge Plan /Readmission Risk Assessment Physician working diagnosis: Mr. Romeo Coelho is a right handed 49 y.o.-orgm-hjg-jmyh has a pastmedical history of HTN (hypertension); HLD (hyperlipidemia); DMII (diabetes mellitus, type 2); CAD (coronary artery disease); Smoking; Depression; Fibromyalgia; and Gout. Patient (or designee) understanding of admission: Pt understands his admission Patient Contact Information: Pt's contact is his Dasia Coelho (Spouse) [phone] (H) [phone] (W) MEDICAL AND COMMUNITY SERVICES: Primary Care Provider: SARITA LIM MD (General) Specialists seen on a consistent basis: N/A Skilled home care services: N/A DME Provider: N/A Pharmacy: [facility] in [facility] LIVING ARRANGEMENTS AND ACCESSIBILITY ISSUES: Apartment Are there any home access issues? No What in home social supports are available to the patient? Pt has support from his who is homewith Pt as she is also receiving disability. ADVANCED DIRECTIVES, POA &/or COLST IN PLACE: No CULTURAL, HINDU and/or LANGUAGE factors affecting health care/discharge planning:: Pt declined, SW offered FUNCTIONAL & PSYCHOSOCIAL INFORMATION: Pt drives although at this time he does not have a working vehicle. Pt is independent with ADL's. Pt lives at home with his and daughter. age 13. MEDICAL INSURANCE IN PLACE: Yes Medicare Type: A, B Medicaid Type: Community DISCHARGE RISK ASSESSMENT: Requires assistance with medication management Total # selected above: Tentative plan to address the risk of re-hospitalization for those at HIGH or MODERATE RISK: INITIAL TRANSITION PLAN: Transportation from hospital in place? Yes,PAL working on arranging transportation for Pt [facility] community transportation out of [facility]. Pt is now ready for DC. Post hospitalization Plan: Return to independent living New DME Requirements: No Initial plan discussed with: patient Nery Townsend 03/16/2015 10:58 * Antonio Andersen - 03/16/2015 1035 EDT Neurology Daily Progress Note Admit Date: 03/15/2015 Date of Service: 03/16/2015 Hospital LOS: 1 day CC: Right-sided weakness Subjective: Mr. Judd is feeling stronger today, saying he's almost back at his baseline. He describes a mild headache but denies any recurrent nausea and chills, which he was experiencing yesterday; he also denies any palpitations, CP, SOB, abdominal pain. Medications: aspirin 325 mg DAILY buPROPion 150 mg BID clopidogrel 75 mg DAILY DULoxetine 60 mg BID heparin 5,000 Units Q8H insulin aspart TID WC insulin aspart QHS isosorbide mononitrate 120 mg DAILY metoprolol 100 mg BID pantoprazole 40 mg DAILY ranolazine 500 mg BID rosuvastatin 40 mg DAILY Objective: Physical Exam: VS: BP 134/84 mmHg Temp(Src) 36.4 ??C (97.5 ??F) (Tympanic) Resp 14 Ht 177.8 cm (70) Wt 109.317 kg (241 lb) BMI 34.58 kg/m2 SpO2 97% GEN: patient sitting up comfortably in bed, pleasantly conversational, no noticeable facial droop HEENT: atraumatic, normocephalic, PERRL, EOMI PULM: CTAB, no wheezes, rales, or rhonchi CV: RRR, normal S1 and S2, no murmurs, rubs, or gallops ABD: Soft, non-tender, non-distended, +BS Neuro exam: Mental Status: Alert and oriented to person, place, time, and reason for admission. Cranial Nerves: CN I: not assessed CN II: visual collins full, visual acuity grossly normal, DERICK toe trimmer III, IV, : EOMI with smooth pursuit CN V: sensation intact to light touch in V1-V3 distributions bilaterally CN VII: symmetric eyebrow raise and smile, nasolabial folds symmetric and present CN VIII: did not assess CN IX, X: symmetric uvula raise CN XI: strength 5/5 bilaterally for sternocleidomastoids and shoulder shrug CN XII: tongue protrusion midline, symmetric, and without fasciculations Motor: Strength: Right Left Shoulder abduction 5/5 5/5 Elbow flexion 4+/5 5/5 Elbow extension 4+/5 5/5 Wrist flexion 4+/5 5/5 Wrist extension 4+/5 5/5 Finger abduction 4/5 5/5 Grasp 4+/5 5/5 Hip flexion 4/5 5/5 Knee extension 4+/5 5/5 Ankle flexion 5/5 5/5 Ankle extension 5/5 5/5 DTRs: Right Left Biceps 2 2 Triceps 2 2 Bracheoradialis 2 2 Patellar 3 2 Achilles 2 2 Babinski Downgoing bilaterally Sensation: diminished sensation to light touch on RLE/RUE Proprioception: normal in BLE Romberg: negative Cerebellar: Finger to nose intact bilaterally Heel to price intact bilaterally No dysdiadochokinesis No involuntary movements Radiology Imaging: CT head without contrast from [facility] was negative for intracranial hemorrhage MRI head - negative for infarcts; pending final read from radiology Duplex US carotids - 16-49% stenosis bilateral carotids; bilateral vertebral arteries patent CXR - normal Assessment: Mr. Coelho is a 49yo male with a PMH significant for HTN, HLD, T2DM, CAD, current smoker, and past history of a CVA (2004) and recent TIA who presented with right-sided weakness s/p GLENNA procedure at an [facility]. CT from [facility] didn't demonstrate intracranial hemorrhage. Predominant right-sided motor symptoms suggest lesion in the left posterior limb of internal capsule, likely etiology being microvascular disease due to underlying co-morbidities. Patient continuing to improve and regain strength in hisright upper/lower extremities. Recommendations: Discharge home today Continue home medication regimen - antiplatelet therapy aspirin 325, plavix 75 daily F/u with neurologist Dr. Negron on 03/21 @ 3pm - patient given disc with imaging done here at [facility] to bring to appointment F/u with primary care provider (Sarita Lim) with particular emphasis on smoking cessation Antonio Andersen, MS III [phone] * Gertrude Linda - 03/16/2015 0901 EDT [facility] Rehabilitation Therapy Acute Therapies [facility] Occupational Therapy Initial Evaluation/Discontinue Note Date of Service: 03/16/2015 Reason for Referral: Evaluate and treat Precautions: Activity as tolerated, Ambulate and Fall precautions SUBJECTIVE: It feels back to normal-in reference to strength in R-UE. Pain: No pain reported during the interview. OBJECTIVE: Patient Profile: Romeo Coelho is a right hand dominant 49 y.o. male admitted on 03/15/2015 secondary to [facility] ED- STROKE W/LYTICS- TO M4 434.91 CEREBR ART OCCL UNSPEC W INFARCT[ICD-9-CM] The patient lives at [address] [place] [address] History of Present Illness/Injury: Per neuro H&P by Dr. Veliz on 03/15/15: Chief Complaint: Right-sided weakness HPI: Mr. Romeo Coelho is a right handed 49 y.o.-pyam-wbg-ugvt has a past medical history of HTN (hypertension); HLD (hyperlipidemia); DMII (diabetes mellitus, type 2); CAD (coronary artery disease); Smoking; Depression; Fibromyalgia; and Gout. Patient was transferred to from [facility] after administration of TPAfollowing sudden onset of right sided weakness following the procedure. History was obtained from the patient who is completely alert and oriented and from the transfer records. Apparently patient had transesophageal echocardiogram and was at baseline when he was checkedout 3:10 PM approximately, when he was rechecked at 5:35 PM patient complained of generalized headache of 5/10 intensity and became fatigued his nurse noted that he was having right fascial droop andthe patient reported weakness in the right arm. Patient was assessed for possible stroke and noted to have right-sided weakness and right-sided facial droop. CAT scan of the head was done and was negative for bleed, subsequently patient received TPA at March 14 blood pressure was reported to be normal tensive, patient was subsequently transferred to [facility] for higher level of care after administration of TPA. Labs prior to transfer included INR of 1.1 PT of 10.4, white blood count of 7.8, hemoglobin of 15.3, platelets of 163, sodium of 142, potassium of 3.8, BUN of 7, creatinine of 0.9, glucose of 91, calcium of 9 and magnesium of 2.5 troponin was also checked and was negative Living Environment/Home Set-up: Patient lives with family in a single level mobile home with 3 steps to enter and hand rails on both sides. Bathroom has tub/shower combo. Caregiver Support: 24-hour assist Equipment Available: Cane Prior Level of Function: Activities of daily living: Independent Instrumental activities of daily living: Independent Work/Leisure: Disabled Medical/Surgical History: Current: Patient Active Problem List Diagnosis ??? Unstable angina ??? CAD (coronary artery disease) ??? Anxiety and depression ??? CVA (cerebral vascular accident) MR HEAD WO CONTRAST (03/15/15) Order Status: No result VL CAROTID/VERTEBRAL DUPLEX BILATERAL (03/15/15) IMPRESSIONS 1. 16-49% stenosis in the bilateral internal carotid arteries. 2. The bilateral vertebral arteries are patent with normal antegrade flow. CHEST PA AND LATERAL (03/15/15) FINDINGS: Soft tissues: Normal. Bones: Normal. Cardiac and mediastinal contours:Stent within the left anterior descending coronary artery. Lungs: Normal. Pleura/diaphragms:Normal. IMPRESSION: No acute disease. Past: Past Medical History Diagnosis Date ??? HTN (hypertension) ??? HLD (hyperlipidemia) ??? DMII (diabetes mellitus, type 2) ??? CAD (coronary artery disease) ??? Smoking ??? Depression ??? Fibromyalgia ??? Gout Past Surgical History Procedure Laterality Date ??? Gallbladder surgery Medications: Medications reviewed Body Functions and Performance Skills: Cardiovascular/Respiratory Systems Function: Vital Signs: Position Heart Rate (bpm) Blood Pressure (mmHG) Respiratory Rate (breaths/min) Oxygen Saturation SPO2 Liters of Oxygen Pre: supine 71 140/80 26 - - Post: - - - - - - Mental Functions: Specific mental functions: able to follow multi step instructions, appropriate level of attention during evaluation. Global mental functions: A+Ox 3 Sensory Functions: -Touch: C2-T1 intact to light touch. -Vision: patient stated that he is supposed to wear glasses but has not had his prescription updated and has been wearing reading glasses as needed. -Hearing: understands conversational tones. Neuro musculoskeletal and Movement Related Functions: Range of motion: AROM completed while seated edge of bed. -Cervical WNL: flexion, R/L rotation, R/L lateral flexion. -Bilateral UE WNL: shoulder flexion, elbow flexion/extension, supination/pronation, wrist flexion/extension, digit flexion/extension. -Bilateral LE WNL: hip flexion, knee flexion/extension, df/pf. Strength: MMT completed while seated edge of bed. -Bilateral UE: 5/5 shoulder flexion/extension, elbow flexion/extension, gross grasp. -Bilateral LE: 5/5 hip flexion, knee flexion/extension, df/pf Control of voluntary movement: demonstrated ability to complete thumb-finger opposition bilaterallywith no difficulty noted. Skin and Related Structure Functions: No problems noted. Areas of Occupation and Performance Skills: Basic Activities of Daily Living: Provided supervision for evaluation purposes. -Feeding: demonstrated adequate AROM to complete task. -Grooming: demonstrated adequate AROM to complete task. -Upper Body Dressing: demonstrated ability to button fauzia. -Lower Body Dressing: patient stated that he independently donned socks and pants. Demonstrated adequate AROM to complete task. -Functional Mobility: supine<>seated edge of bed with supervision. Sit<>stand and shortambulation with supervision. Patient and nurse reported that patient has been able to ambulate withno difficulties noted. Instrumental Activities of Daily Living: Not evaluated due to not relevant at this time. Rest and Sleep: Not evaluated due to not relevant at this time. Education: Not evaluated due to patient is not a student. Work: Not evaluated due to patient is on disability. Leisure: Not evaluated due to not relevant at this time. Social Participation: Patient was pleasant and cooperative with OT evaluation. Outcomes: Not evaluated due to not relevant at this time. Informed Consent: The patient consented to the occupational therapy evaluation. The patient agrees to and understandsthe occupational therapy treatment plan and goals. Interventions completed today: Occupational therapy today at 8:25-8:40. Total treatment time: 15 minutes. Timed code treatment minutes: 0 Intervention included: No interventions today Patient/Family Education: Topic: Role of OT D/C planning Safety awareness Learner: patient Method: verbal Barriers to Learning: none noted Outcome: verbalized understanding Team Communication: With nursing before and after evaluation. ASSESSMENT: Romeo was appropriate for occupational therapy evaluation due to CVA on 03/15/15. Patient presentedwith impairments of right sided weakness and slight right sided facial droop. At baseline patient lives with his and daughter, and he was completely independent with all BADLs and IADLs. Feel that patient is able to return home at this time and does not require occupational therapy as patient demonstrated ability to independently and safely complete functional tasks and demonstrated awareness of his needs and plans for discharge, with no cognitive concerns noted. Patient also has availability of 24 hour assist from his as needed. GOALS: Short Term Goals: - ?? 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 - PLAN: Intervention: Discontinue occupational therapy at [facility] acute care. Further Data: N/a Patient/Family Education: Discharge Planning Role of OT Safety Recommended Discharge Destination: Home with family Recommended Discharge Services: No occupational therapy follow-up services at this time Recommended Discharge Equipment: Patient has all equipment necessary Gertrude Linda OT Student, 03/16/2015, 9:01 COOKIE DAMON OT03/16/201512:[id number] Pager: [phone] * Venu Veliz MD - 03/15/2015 8500 EDT Neurology Daily Progress Note Admit Date: 03/15/2015 Date of Service: 03/15/2015 Hospital LOS: 0 days CC: Right sided weakness Problems/Diagnosis: Acute ischemic stroke- suspect left internal capsule Overnight Events: - admitted to neurology overnight - received IV TPA at 8:21 PM Subjective: Mr. Coelho reports that he is improving and has a very mild headache. He reports that he has some baseline numbness from her prior stroke and has neuropathy. We discussed the plan for this hospitalization, and the likelihood that he would be able to go home tomorrow. Review of Systems: A 10-point ROS was performed. Pertinent positives are listed above; all others negative unless otherwise noted. Medications: Current Facility-Administered Medications Medication Route Frequency ??? albuterol (ACCUNEB) nebulizer solution 0.63 mg nebulization Q6H PRN ??? buPROPion (WELLBUTRIN) tablet 150 mg oral BID ??? dextrose 50 % solution 12.5 g intravenous PRN ??? DULoxetine (CYMBALTA) capsule 60 mg oral BID ??? glucagon (human recombinant) injection 1 mg intramuscular PRN ??? insulin aspart (NOVOLOG FLEXPEN) injection subcutaneous TID WC ??? insulin aspart (NOVOLOG FLEXPEN) injection subcutaneous QHS ??? isosorbide mononitrate (IMDUR) CR tablet 120 mg oral DAILY ??? metoprolol (LOPRESSOR) tablet 100 mg oral BID ??? nitroGLYCERIN (NITROSTAT) SL tablet 0.4 mg sublingual Q5 MINUTES PRN ??? ondansetron (ZOFRAN-ODT) disintegrating tablet 4 mg oral Q4H PRN ??? pantoprazole (PROTONIX) tablet 40 mg oral DAILY ??? ranolazine (RANEXA) ER tablet 500 mg oral BID ??? rosuvastatin (CRESTOR) tablet 40 mg oral DAILY ??? sodium chloride 0.9 % (NS) infusion intravenous CONTINUOUS Objective: Physical Exam: VS: BP 130/83 mmHg Temp(Src) 35.6 ??C (96.1 ??F) (Tympanic) Resp 15 Ht 177.8 cm (70) Wt 109.317 kg (241 lb) BMI 34.58 kg/m2 SpO2 96% on room air GEN: Laying in bed, pleasant and cooperative HEENT: atraumatic, normocephalic, PERRL, EOMI, MMM Neck: no JVD, trachea midline PULM: CTAB, no wheezes, rales, or rhonchi CV: RRR, normal S1 and S2, no murmurs ABD: Soft, non-tender, non-distended EXT: no clubbing, cyanosis, or pitting edema SKIN: no rashes, skin warm and dry Neuro exam: Mental Status: Alert and oriented to person, place, time, and reason for admission, follows 3 step commands, speech fluent, no language impairments, normal naming, repetition, and comprehension Cranial Nerves: CN I: not assessed CN II: visual collins full, PERRL toe trimmer III, IV, : EOMI with smooth pursuit CN V: sensation intact to light touch in V1, V2, and V3 distributions CN VII: symmetric eyebrow raise and smile, nasolabial folds symetric and present CN VIII: hearing intact to finger rub bilaterally CN IX, X: symmetric uvula raise CN XI: strength 5/5 bilaterally for sternocleidomastoids and shoulder shrug CN XII: tongue protrusion midline, symmetric, and without fasciculations Motor: Normal muscle bulk and tone. No pronator drift. Strength: Right Left Shoulder abduction 5/5 5/5 Elbow flexion 5/5 5/5 Elbow extension 5/5 5/5 Wrist flexion 5/5 5/5 Wrist extension 5/5 5/5 Finger abduction 4+/5 5/5 Flexor pollicis brevis 4+/5 5/5 Grasp 5/5 5/5 Hip flexion 5/5 5/5 Knee flexion 5/5 5/5 Knee extension 5/5 5/5 Ankle flexion 5/5 5/5 Ankle extension 5/5 5/5 Extensor hallicus longus 5/5 5/5 DTRs: Right Left Biceps 2+ 2+ Bracheoradialis 2+ 2+ Patellar 2+ 2+ Achilles 1+ 1+ Babinski Equivocal downgoing toes Sensation: Subjectively reports decreased sensation on the right arm and leg (80% compared to left) which is achronic finding. Double simultaneous stimulation intact Romberg: negative Coordination: Finger to nose intact bilaterally Heel to price intact bilaterally No dysdiadochokinesis No truncal ataxia No involuntary movements Gait: Reports gait is mildly off from baseline, but is able to ambulate independently without assistance. Mildly wide based. Labs: CBC: Recent Labs 03/15/15 015 WBC 8.42 HGB 14.5 HCT 43.2 MCV 89 PLT 151 BMP: Recent Labs 03/15/15 0152 NA 143 K 3.8 CL 109 CO2 24 BUN 9* CREATININE 0.81 Microbiology: Urinalysis: pending EKG: Normal sinus rhythm Stroke labs: Hemoglobin A1c 6.4 TSH 1.97 LDL 33 (on rosuvastatin 40 mg) Radiology Imaging: Carotid ultrasound: Pending Transesophageal echocardiogram: EF 65%, normal systolic function with normal loss weakness. No regional wall motion abnormalities with mild left atrial dilation and normal right ventricular systolic function. Additionally noted no cardiac source of emboli. CT head: No acute intracranial findings (no hemorrhage, no evidence of infarct) Chest X-ray: normal Prior to admission platelet agents: Aspirin 325 mg by mouth daily and Plavix 75 mg by mouth daily Prior to admission anticoagulation: None Assessment: Mr. Coelho is a 49-year-old right-handed male with a history of hypertension, coronary artery disease, type 2 diabetes mellitus, and hyperlipidemia who presented with acute onset right face arm and leg weakness with a clinical diagnosis of an acute ischemic stroke. His weakness has improved significantly after treatment with IV tPA on 03/14/2015 at 8:21 PM. Symptomatically this localizes to the posterior limb of the left internal capsule. Neurologically, he is improving, and the etiologies thus far is suspicious for a periprocedural embolic event. Given the significant improvement, he is likely to be safely discharged tomorrow. Plan: Acute ischemic stroke - Admit to neurology service in an ICU bed - monitor on telemetry: No atrial fibrillation - baseline EKG - Ordered standard post-IV TPA order set - Q1H stroke neuro vital signs - neurology resident to evaluate if change in neurologic status and consider need for stat imaging - MRI head ordered for 8 PM (24 hours scan) to evaluate for hemorrhage and evidence of persistent infarct - bedside swallow: passed - Trend cardiac biomarkers - Hold his home aspirin 325 mg and Plavix 75 mg due to recent IV TPA; resume if there is no evidence of hemorrhage on MRI - Continue rosuvastatin 40 mg daily at bedtime - Allow permissive hypertension for initial 24 hours (goal SBP<180 and DBP<105): - hold home antihypertensives (diltiazem 240 SR, Lasix 20 daily when necessary, metoprolol 100 twice a day) - 10 mg IV labetalol PRN or 10 mg IV hydralazine - Glucose management: ISS ordered - Ordered smoking cessation counseling - PT/OT Diet: Consistent carbohydrate Ppx: SCDs and ambulation, will hold pharmacologic anticoagulation until 24 hour brain image (will not provide if there is a REMOVABLE PROSTHODONTIST hemorrhage). Code Status: Full Dispo: Likely home tomorrow Consults: None Rob Mayorga MD Neurology Resident, PGY-3 Pager # [phone] (Pager [phone] after hours or on weekends) Attestation statement: I saw and examined the patient with the resident/fellow on 03/15/15. I agreewith the findings and plan of care documented in the resident's/fellow's note. Patient has been on ASA and Plavix already which makes decision making that more difficult with regard to further prevention since he presented with a new ischemic event. Will await his MRI today. Venu Veliz MD MSc Sales And Service Engineer [facility] Board certified Adult Neurology Adult Neurology, Neuro-Oncology and Neurophysiology [address] [facility], [address] * NicoleduAntonio - 03/15/2015 1138 EDT Neurology Daily Progress Note Admit Date: 03/15/2015 Date of Service: 03/15/2015 Hospital LOS: 0 days CC: Right-sided weakness HPI: Mr. Coelho is a right-handed 49yo male with a PMH of hypertension, hyperlipidemia, T2DM, CAD, current smoker, and a history of a CVA (~10 years ago) and a recent TIA (mid-January) who presented with right-sided weakness yesterday afternoon following a GLENNA procedure at an [facility]. He was last seen with out deficits at around 3:30pm yesterday following the GLENNA. Two hours later, a nurse noted that he was having right facial droop and he was immediately brought to the ED at [facility] where a stat CT head was performed and did not demonstrate intracranial hemorrhage. He didn't have any contraindications and thus was given tPA and was subsequently transported here to [facility]. He says that he remembers his right arm feeling heavy and having some difficulty speaking. About 10 years ago, he had a similar presentation with right-sided sensorimotor deficits. He did not receive any tPA at that time and describes some residual sensory loss, particularly in the bilateral lower extremities. Around 1 month ago, the patient took a nap and his had trouble waking himup. He was brought to the ED at [facility] and it was presumed that he had a TIA. The GLENNA procedure he underwent yesterday was in attempt to determine the etiology of this TIA. This morning, Mr. Coelho says he's feeling better. Describing increasing strength in his right arm and leg. He says he's having some difficulties coordinating some movements with his right hand, but that it's markedly better than last night in the ED. He indicates that he feels more comfortable walking around. Review of Systems: +history of intermittent CP, palpitations, LH, weakness -SOB, abdominal pain, CAREY, muscle pain, changes in vision Medications: buPROPion 150 mg BID DULoxetine 60 mg BID insulin aspart TID WC insulin aspart QHS isosorbide mononitrate 120 mg DAILY metoprolol 100 mg BID pantoprazole 40 mg DAILY ranolazine 500 mg BID rosuvastatin 40 mg DAILY Objective: Physical Exam: VS: BP 127/91 mmHg Temp(Src) 35.6 ??C (96.1 ??F) (Tympanic) Resp 19 Ht 177.8 cm (70) Wt 109.317 kg (241 lb) BMI 34.58 kg/m2 SpO2 94% GEN: patient sitting up comfortably in bed, pleasantly conversational. HEENT: atraumatic, normocephalic, PERRL, EOMI PULM: CTAB, no wheezes, rales, or rhonchi CV: RRR, normal S1 and S2, no murmurs, rubs, or gallops ABD: Soft, non-tender, non-distended, +BS EXT: no clubbing, cyanosis, or pitting edema SKIN: no rashes, skin warm and dry Neuro exam: Mental Status: Alert and oriented to person, place, time, and reason for admission. Cranial Nerves: CN I: not assessed CN II: visual collins full, visual acuity grossly normal, DERICK toe trimmer III, IV, : EOMI with smooth pursuit CN V: sensation intact to light touch in V1 & V3 distributions bilaterally; describes reduced sensation in the right-sided V2 territory CN VII: symmetric eyebrow raise and smile, nasolabial folds symmetric and present CN VIII: did not assess CN IX, X: symmetric uvula raise CN XI: strength 5/5 bilaterally for sternocleidomastoids and shoulder shrug CN XII: tongue protrusion midline, symmetric, and without fasciculations Motor: Strength: Right Left Shoulder abduction 5/5 5/5 Elbow flexion 4+/5 5/5 Elbow extension 4+/5 5/5 Wrist flexion 4+/5 5/5 Wrist extension 4+/5 5/5 Finger abduction 4/5 5/5 Grasp 4+/5 5/5 Hip flexion 4+/5 5/5 Knee extension 4+/5 5/5 Ankle flexion 5/5 5/5 Ankle extension 5/5 5/5 DTRs: Right Left Biceps 2 2 Triceps 2 2 Bracheoradialis 2 2 Patellar 3 2 Achilles 2 2 Babinski Mute response; no movement downgoing toes Sensation: diminished sensation to light touch on RLE/RUE Proprioception: diminished position sense in RLE Romberg: negative Cerebellar: Finger to nose intact bilaterally Heel to price intact bilaterally No dysdiadochokinesis No involuntary movements Radiology Imaging: CT head without contrast from [facility] was negative for intracranial hemorrhage Assessment: Mr. Coelho is a 49yo male with a PMH significant for HTN, HLD, T2DM, CAD, current smoker, and past history of a CVA (2004) and recent TIA who presented with right-sided weakness s/p GLENNA procedure at an [facility]. CT from [facility] didn't demonstrate intracranial hemorrhage. Predominant right-sided motor symptoms suggest lesion in the left posterior limb of internal capsule, likely etiology being microvascular disease due to underlying co-morbidities. Recommendations: CVA (cerebral vascular accident) - presumed microvascular etiology - f/u MRI head this evening around 8pm - continue telemetry monitoring - Q4 stroke neuro vital signs - GLENNA results pending from [facility] - PT/OT to assist with getting patient back to baseline - repeat troponin levels - CXR - urinalysis - carotid ultrasound - smoking cessation counseling Code Status: full code Dispo: pending clinical status Antonio Andersen, MS III [phone] documented in this encounter H&P Notes * Venu Veliz MD - 03/15/2015 0217 EDT Neurology History and Physical Date of Service: 03/15/2015 Chief Complaint: Right-sided weakness HPI: Mr. Romeo Coelho is a right handed 49 y.[id number] has a past medical history of HTN (hypertension); HLD (hyperlipidemia); DMII (diabetes mellitus, type 2); CAD (coronary artery disease); Smoking; Depression; Fibromyalgia; and Gout. Patient was transferred to from [facility] after administration of TPAfollowing sudden onset of right sided weakness following the procedure. History was obtained from the patient who is completely alert and oriented and from the transfer records. Apparently patient had transesophageal echocardiogram and was at baseline when he was checkedout 3:10 PM approximately, when he was rechecked at 5:35 PM patient complained of generalized headache of 5/10 intensity and became fatigued his nurse noted that he was having right fascial droop andthe patient reported weakness in the right arm. Patient was assessed for possible stroke and noted to have right-sided weakness and right-sided facial droop. CAT scan of the head was done and was negative for bleed, subsequently patient received TPA at March 14 blood pressure was reported to be normal tensive, patient was subsequently transferred to [facility] for higher level of care after administration of TPA. Labs prior to transfer included INR of 1.1 PT of 10.4, white blood count of 7.8, hemoglobin of 15.3, platelets of 163, sodium of 142, potassium of 3.8, BUN of 7, creatinine of 0.9, glucose of 91, calcium of 9 and magnesium of 2.5 troponin was also checked and was negative Review of Systems: A ten point review of systems was performed. Pertinent positives are listed above, all others are negative. PMH PSH Past Medical History Diagnosis Date ??? HTN (hypertension) ??? HLD (hyperlipidemia) ??? DMII (diabetes mellitus, type 2) ??? CAD (coronary artery disease) ??? Smoking ??? Depression ??? Fibromyalgia ??? Gout Past Surgical History Procedure Laterality Date ??? Gallbladder surgery Social History Family History History Substance Use Topics ??? Smoking status: Current Every Day Smoker -- 0.25 packs/day Types: Cigarettes ??? Smokeless tobacco: Not on file Comment: pt reports difficulty quitting with being smoker ??? Alcohol Use: Not on file Family History Problem Relation Age of Onset ??? Heart Disease ??? Diabetes Medications Current Facility-Administered Medications Medication Route Frequency ??? albuterol (ACCUNEB) nebulizer solution 0.63 mg nebulization Q6H PRN ??? buPROPion (WELLBUTRIN) tablet 150 mg oral BID ??? dextrose 50 % solution 12.5 g intravenous PRN ??? DULoxetine (CYMBALTA) capsule 60 mg oral BID ??? furosemide (LASIX) tablet 20 mg oral Daily PRN ??? glucagon (human recombinant) injection 1 mg intramuscular PRN ??? insulin aspart (NOVOLOG FLEXPEN) injection subcutaneous TID WC ??? isosorbide mononitrate (IMDUR) CR tablet 120 mg oral DAILY ??? metFORMIN (GLUCOPHAGE) tablet 850 mg oral BID (BREAKFAST/DINNER) ??? metoprolol (LOPRESSOR) tablet 100 mg oral BID ??? nitroGLYCERIN (NITROSTAT) SL tablet 0.4 mg sublingual Q5 MINUTES PRN ??? pantoprazole (PROTONIX) tablet 40 mg oral DAILY ??? ranolazine (RANEXA) ER tablet 500 mg oral BID ??? rosuvastatin (CRESTOR) tablet 40 mg oral DAILY Allergies Allergies Allergen Reactions ??? Lisinopril (Bulk) Cough ??? Thallium-201 cardiac episode Objective/Physical Exam: VS: Temp: [36.5 ??C (97.7 ??F)] , Pulse: --, Resp: [11-30] , BP: (120-130)/(70-81) , SpO2: [95 %-98%] Physical exam: GEN: HEENT: atraumatic, normocephalic, PERRL, EOMI, MMM Neck: no JVD, no cervical LAD, trachea midline, no thyromegaly PULM: CTAB, no wheezes, rales, or rhonchi CV: RRR, normal S1 and S2, no murmurs, rubs, or gallops ABD: Soft, non-tender, non-distended, normal bowel sounds EXT: no clubbing, cyanosis, or pitting edema SKIN: no rashes, skin warm and dry Neuro exam: Mental Status: Alert and oriented to person, place, time, and reason for admission, registration and recall 3, serial 7s intact, spells world backwards, follows 3 step commands, speech fluent, no language impairments, normal naming, repetition, and comprehension. Cranial Nerves: CN I: not assessed CN II: visual collins full, visual acuity grossly normal, PERRLA toe trimmer III, IV, : EOMI with smooth pursuit CN V: sensation intact to light touch in V1, V2, and V3 distributions CN VII: symmetric eyebrow raise and smile, nasolabial folds flat on the right side CN VIII: hearing intact to finger rub bilaterally CN IX, X: symmetric uvula raise CN XI: strength 5/5 bilaterally for sternocleidomastoids and shoulder shrug CN XII: tongue protrusion midline, symmetric, and without fasciculations Motor: Normal muscle bulk and tone. No pronator drift or orbiting. Strength: Right Left Shoulder abduction 4/5 5/5 Elbow flexion 4/5 5/5 Elbow extension 4/5 5/5 Wrist flexion 4/5 5/5 Wrist extension 4/5 5/5 Finger abduction 3/5 5/5 Finger adduction 3/5 5/5 Grasp 3/5 5/5 Hip flexion 4+ /5 5/5 Knee flexion 4+ /5 5/5 Knee extension 4+ /5 5/5 Ankle flexion 4+ /5 5/5 Ankle extension 4+ 5 5/5 Ankle intorsion 4+ /5 5/5 Ankle extorsion 5/5 5/5 Extensor hallicus longus 5/5 5/5 DTRs: Right Left Biceps 3 3 Triceps 3 3 Bracheoradialis 3 3 Patellar 3 3 Achilles 2+ 2+ Babinski mute downgoing toes Sensation: Intact to light touch and temperature but decreased in the right as compared to the left Length dependent loss of temperature more so in the right and left Vibration: Vibration sense loss at the right side intact on the left Romberg: Not assessed Coordination: Finger to nose intact bilaterally No truncal ataxia No involuntary movements Gait: Not assessed Labs:as of 03/15/2015 3:35 Labs prior to transfer included INR of 1.1 PT of 10.4, white blood count of 7.8, hemoglobin of 15.3, platelets of 163, sodium of 142, potassium of 3.8, BUN of 7, creatinine of 0.9, glucose of 91, calcium of 9 and magnesium of 2.5 troponin was also checked and was negative UA negative Imaging: *CT of the head no intracranial bleed EKG: Normal sinus rhythm at 74 Assessment: This is a 49-year-old man with past medical history significant of hypertension, hyperlipidemia, diabetes mellitus, coronary artery disease and was actively smoker Plan: ICU Unit admission for monitoring during first 24 hours routine non-contrast head CT at 24 hours post treatment (or STAT with any worsening in neurological status) Vital signs every 15 minutes for 2 hours, then every 30 minutes for 6 hours, then every 1 hour for 16 hours Strict control of blood pressure for 24 hours per protocol swallowing screen performed and passed Continuous pulse oximetry monitoring, Oxygen by nasal cannula or mask to maintain O2 sat greater than 95% No antiplatelet agents or anticoagulants (including heparins for DVT prophylaxis) in first 24 hours No Levy catheter, nasogastric tube, arterial catheter or central venous catheter for 24 hr, unlessabsolutely necessary For any acute worsening of neurologic condition: STAT CT head and neurosurgery consult Physical therapy and occupational therapy patient received TPA at 2020 on March 14 DVT PPX Indicated: yes, Seqential Compression Device FEN: Discharge Plan: - fluids: no - electrolytes: stable - diet: carbohydrate consistent low sodium Need for PT: yes Anticipated Discharge: Subacute Rehab Code Status: full Elvira Gray MD [facility] Neurology Resident PGY-3 Pager # [phone] (# [phone] nights/weekends) 03/15/2015 3:35 Did patient have a stroke or TIA? Yes Type of Stroke Cerebral Infarction Stroke code: No Transfer from outside hospital: Yes Hospital Name: [facility] Initial Contact Time: patient received TPA at 2020 on March 14 On admission to [facility], NIHSS: NIHSS Testing Interval: 2 hr post treatment Interval Exam Date: 03/14/15 Interval Exam Time: 2233 Level of Consciousness (1a. ): 0 LOC Questions (1b. ): 0 LOC Commands (1c. ): 0 Best Gaze (2. ): 0 Visual (3. ): 0 Facial Palsy (4. ): 1 Motor Arm, Left (5a. ): 0 Motor Arm, Rigtht (5b. ): 1 Motor Leg, Left (6a. ): 0 Motor Leg, Right (6a. ): 1 Limb Ataxia (7. ): 0 Sensory (8. ): 1 Best Language (9. ): 0 Dysarthria (10.): 0 Extinction And Inattention: 0 Total: 4 Last Known Well Time: Date: Hours fromBaseline: 3 Height: 177.8 cm (70) Weight : 109.317 kg (241 lb) Body mass index is 34.58 kg/(m^2). Stroke Panel ordered: Yes MRI/MRA ordered: Yes CT/CTA ordered: No Is patient on telemetry? Yes Rhythms noted: NSR tPA Decision: IV tPA administered. Interventional Approach: Endovascular intervention considered? No; Reason not indicated Dysphagia screenprior to food/fluids/meds performed per protocol? Yes passed swallow eval Orders Patient will be assessed forand/or receive rehabilitation services during this hospitalization? PT: Yes OT: Yes DEPUTY BAILIFF: No; patient returned to prior level of function, rehab not indicated at this time DVT Prophylaxis: Yes; Devices: sequential compression stockings Has patient smokedat least one cigarette in past year? Yes; smoking consult ordered Enrolled in clinical research study? N/A Medication list reviewed and updated. Problem list reviewed and updated. Personal risk factors for stroke? Hypertension, Smoking, Hyperlipidemia/Dyslipidemia, Atherosclerotic and vascular disease (cardiovascular, cerebrovascular, peripheral vascular) and Diabetes Current treatment plan and/or risk/benefits of treatment/diagnostic work-up was fully discussed with the patient at the bedside. Yes Patient/family is in agreement with current plan as outlined above. Attestation statement: I saw and examined the patient with the resident/fellow on 03/15/15. I agreewith the findings and plan of care documented in the resident's/fellow's note. Patient has been on ASA and Plavix already which makes decision making that more difficult with regard to further prevention since he presented with a potential new ischemic event. Will await his MRI today. Venu Veliz MD MSc Sales And Service Engineer [facility] Board certified Adult Neurology Adult Neurology, Neuro-Oncology and Neurophysiology [address] [facility], [address] documented in this encounter Miscellaneous Notes * Plan of Care - Abena Garcia RN - 03/16/2015 1051 EDT Problem: Daily Care Plan Goals Goal: Care Plan Documentation Outcome: Met This Shift 03/16/15 0741 Care Plan Focus Area of Focus Discharge Plan Goal This Shift pt will discharge/transfer to m6/home Data: Pt has ambulated, iv dc'd. Ready for discharge to home. Action: Discharge to home Response: Ready for discharge to home. Abena Garcia, VERO 03/16/2015 10:50 * Plan of Care - Emmy Gomez RN - 03/16/2015 0632 EDT Problem: Daily Care Plan Goals Goal: Care Plan Documentation Outcome: Met This Shift 03/15/15199903/16/15 0622 Care Plan Focus Area of Focus Neuro Status -- Goal This Shift -- maintain normal neuro vital signs Data: alert and oriented. No neuro deficits. NSR, no complaints verbalized. Action: patient had an MRI of his head 24 hours post TPA administration. Stood at bedside several times to void. 2 IVs dcd New IV inserted. Response: Patient asymptomatic with standing and voiding at the bedside. Resting in short intervalsthis hs. Emmy Gomez RN 03/16/2015 6:23 * Plan of Care - Steffanie Chicas RN - 03/15/2015 0918 EDT Problem: Daily Care Plan Goals Goal: Care Plan Documentation Outcome: Ongoing 03/15/15 0700 Care Plan Focus Area of Focus Neuro Status Goal This Shift assess per protocol D: patient admitted from OSH s/p ischemic stroke. Received TPA prior to transfer to [facility]. A: neuro checks per TPA protocol. R: neuro exams have been consistent and charted on tpa flowsheet. MRI scheduled for this evening 1999. 0930: oob to recliner. Patient declined bath/tooth brush. 1015: c/o nausea. Requested zofran order. 11: patient medicated with zofran after he returned to bed. Patient denies CP. ekg done and troponins sent. Need cxr- requesting it to be done portable. 12: cxr completed in radiology. Patient declined lunch. 15: nausea resolved and patient ate lunch. U/S carotids at the bedside. * Plan of Care - Pao Valdivia - 03/15/2015 0533 EDT Problem: Daily Care Plan Goals Goal: Care Plan Documentation Outcome: Ongoing 03/15/15 0000 Care Plan Focus Area of Focus Neuro Status Goal This Shift q 30 min neuro checks Data: Pt admitted from OSH. Had a GLENNA done and was recovering when right sided weakness was noted. Pt reportedly received tpa at 2046 yesterday and was sent here. Upon arrival, pt had slightly slurred speech and was unable to pick his right arm off of the bed. Was able to move right leg, almost full strength. Action: Q 30 minute neuro checks done per protocol, transitioned to q1 hour checks as of 429. Response: Pt is now able to pick right arm up off of bed with some effort and hold it up with no drift. No slurred speech, strong left side. Pt reports feeling much better, aside from lack of sleep and food. Continue q1 hour neuro checks, closely monitor for any changes. Pao Valdivia RN 03/15/2015 5:27 documented in this encounter Plan of Treatment Pending Results Name Type Priority Associated Diagnoses Date /Time OUTSIDE CD - CT NEURO Imaging 14:23 EDT OUTSIDE CD - CT NEURO Imaging 14:23 EDT OUTSIDE CD - OTHER CHEST Imaging 03/15/2015 14:23 EDT documented as of this encounter Procedures Procedure Name Priority Date/Time Associated Diagnosis Comments ECG REPORT - SCANNED 03/21/2015 8:17 EDT ECG REPORT - SCANNED 03/20/2015 22:44 EDT COMPLETE BLOOD COUNT AND DIFFERENTIAL Routine 03/16/2015 4:06 EDT BUN Routine 03/16/2015 4:06 EDT CREATININE Routine 03/16/2015 4:06 EDT ELECTROLYTES Routine 03/16/2015 4:06 EDT RESPIRATORY CARE EVALUATION ONLY Routine 03/16/2015 0:05 EDT GLUCOSE, GLUCOMETER Routine 03/15/2015 2 2:45 EDT MR HEAD WO CONTRAST 03/15/2015 2 1:07 EDT TROPONIN I Routine 03/15/2015 18:17 EDT GLUCOSE, GLUCOMETER Routine 03/15/2015 1 7:19 EDT URINALYSIS WITH MICROSCOPIC IF POSITIVE Routine 03/15/2015 16:16 EDT UA REFLEX Routine 03/15/2015 16:16 EDT URINE CULTURE IF POSITIVE Routine 03/15/2015 16:16 EDT VL CAROTID/VERTEBRAL DUPLEX BILATERAL Routine 03/15/2015 16:06 EDT CHEST PA AND LATERAL Routine 03/15/2015 12:01 EDT GLUCOSE, GLUCOMETER Routine 03/15/2015 1 1:38 EDT EKG 12-LEAD Routine 03/15/2015 10:54 EDT TROPONIN I Routine 03/15/2015 10:45 EDT GLUCOSE, GLUCOMETER Routine 03/15/2015 7 :42 EDT MRSA PCR Routine 03/15/2015 6:00 EDT RESPIRATORY CARE EVALUATION ONLY Routine 03/15/2015 4:13 EDT RESPIRATORY CARE EVALUATION ONLY Routine 03/15/2015 4:13 EDT SCREENING GLUCOSE Routine 03/15/2015 1:5 2 EDT COMPLETE BLOOD COUNT AND DIFFERENTIAL Routine 03/15/2015 1:52 EDT BUN Routine 03/15/2015 1:52 EDT TSH Routine 03/15/2015 1:52 EDT HEMOGLOBIN A1C Routine 03/15/2015 1:52 EDT CREATININE Routine 03/15/2015 1:52 EDT LIPID PROFILE (INCLUDES CHOLESTEROL, TRIGLYCERIDES, HDL, LDL) Routine 03/15/2015 1:52 EDT ELECTROLYTES Routine 03/15/2015 1:52 EDT documented in this encounter Results * ECG REPORT - SCANNED (03/21/2015 8:17 EDT) 03/21/2015 8:17 EDT Scan 2 Photo Specialist PROCEDURE/MINOR GUSTAVO GICAL ORDERABLES * ECG REPORT - SCANNED (03/20/2015 22:44 EDT) 03/20/2015 22:4 4 EDT Scan 2 Photo Specialist PROCEDURE/MINOR GUSTAVO GICAL ORDERABLES * CREATININE (03/16/2015 4:06 EDT) Creatinine 0.77 0.66 - 1.25 mg/dl 03/16/2015 4:50 EDT [facility] GFR, Calculated 108 >60 ml/min/1.7 3m2 03/16/2015 4:50 EDT [facility] Comment: eGFR calculated using CKD-EPI equation for non Americans. Multiply eGFR by 1.16 for Americans. Blood specimen (specimen) BLOOD SPECIMEN / Unknown 03/16/2015 4:06 EDT 03/16/2015 4:18 EDT Rob Mayorga MD CHEMISTRY & BLO OD GAS ORDERABLES [facility] [address] [place] [address] * (ABNORMAL) BUN (03/16/2015 4:06 EDT) BUN 9(L) 10 - 26 mg/dl 03/16/2015 4:50 EDT [facility] Blood specimen (specimen) BLOOD SPECIMEN / Unknown 03/16/2015 4:06 EDT 03/16/2015 4:18 EDT Rob Mayorga MD CHEMISTRY & BLO OD GAS ORDERABLES [facility] [address] [place] [address] * (ABNORMAL) HEMAGRAM AND DIFFERENTIAL (03/16/2015 4:06 EDT) WBC 7.36 4.0 - 10.4 K/cmm 03/16/2015 4:45 [facility] RBC 4.80 4.36 - 5.78 M/cmm 03/16/2015 4:45 [facility] Hemoglobin 14.4 13.8 - 17.3 gm/dl 03/16/2015 4:45 [facility] HCT 42.4 39.5 - 50.2 % 03/16/2015 4:45 [facility] MCV 88 81 - 95 fl 03/16/2015 4:45 [facility] MCH 30.0 27.6 - 33.0 pg 03/16/2015 4:45 [facility] MCHC 34.0 32.8 - 36.4 gm/dl 03/16/2015 4:45 [facility] RDW-CV 13.6 11.8 - 14.1 % 03/16/2015 4:45 [facility] RDW-SD 41.6 36.5 - 45.9 fl 03/16/2015 4:45 [facility] PLT 163 141 - 320 K/cmm 03/16/2015 4:45 [facility] MPV 9.0 7.5 - 11.2 fl 03/16/2015 4:45 [facility] % Neutrophils 43.3(L) 45.5 - 79.7 % 03/16/2015 4:45 [facility] % Lymphocytes 42.5 15.0 - 46.8 % 03/16/2015 4:45 [facility] % Monocytes 7.7 1.8 - 12.0 % 03/16/2015 4:45 [facility] % Eosinophils 5.3 0.6 - 6.9 % 03/16/2015 4:45 [facility] % Basophils 1.2 0.2 - 1.4 % 03/16/2015 4:45 [facility] ABS Neutrophils 3.19 2.20 - 8.85 K/cmm 03/16/2015 4:45 [facility] ABS Lymphs 3.13 1.09 - 3.30 K/cmm 03/16/2015 4:45 [facility] ABS Monocytes 0.57 0.1 - 0.8 K/cmm 03/16/2015 4:45 [facility] ABS Eosinophils 0.39 0.03 - 0.61 K/cmm 03/16/2015 4:45 [facility] ABS Basophils 0.09 0.01 - 0.11 K/cmm 03/16/2015 4:45 [facility] Type of Diff: Automated 03/16/2015 4:45 [facility] Blood specimen (specimen) BLOOD SPECIMEN / Unknown 03/16/2015 4:06 EDT 03/16/2015 4:18 EDT Elvira Gray MD PACKAGES & DNA PROBE ORDERABLES [facility] [address] [place] [address] * ELECTROLYTES (03/16/2015 4:06 EDT) Sodium 145 136 - 145 mEq/L 03/16/2015 4:50 [facility] Potassium 3.9 3.5 - 5.0 mEq/L 03/16/2015 4:50 EDT [facility] Chloride 108 96 - 110 mEq/L 03/16/2015 4:50 EDT [facility] CO2 25 24 - 32 mEq/L 03/16/2015 4:50 EDT [facility] Blood specimen (specimen) BLOOD SPECIMEN / Unknown 03/16/2015 4:06 EDT 03/16/2015 4:18 EDT Elvira Gray MD CHEMISTRY & BLOOD GA S ORDERABLES Performing Organization Address City/[facility]/ZIP Co de Phone Number [facility] [address] [place] [address] * GLUCOSE, GLUCOMETER (03/15/2015 22:45 EDT) Glucose, Fingerstick 91 70 - 100 mg/dl 03/15/2015 22:57 EDT [facility] Advisor To [employer] In [employer] ID [id number] 03/15/2015 22:57 EDT [facility] Comment:Test Performed by Nu ing Services BLOOD SPECIMEN / Unknown 03/15/2015 22:45 EDT 03/15/2015 22:57 EDT Landon Dumont MD CHEMISTRY & BLOOD GA S ORDERABLES Performing Organization Address City/[facility] [[email or web address]] Co de Phone Number [facility] [address] [place] [address] * MR HEAD WO CONTRAST (03/15/2015 21:07 EDT) Anatomical Region Laterality Modality Other 03/15/2015 21:0 7 EDT 03/16/2015 10:04 EDT Narrative 03/16/2015 10:04 EDT MRI of the brain without gadolinium. History: Right-sided weakness 24 hours post-IV TPA and Technique: Sagittal T1 FLAIR, axial T2, T2 FLAIR, GRE and diffusion weighted sequences were performed pregadolinium. Findings: There is no acute hemorrhage or infarct. There is a small cluster of punctate foci of increased T2 and T2 FLAIR signal within the white matter adjacent to the left frontal horn of lateral ventricle. There is no mass or mass effect. There is no ventriculomegaly midline shift. The precervical junction is normal. The major intracranial vascular structures have normal flow-voids. The orbits are grossly normal. There is patchy mucosal thickening within the paranasal sinuses bilaterally. Conclusion: No acute findings. Procedure Note Dakota Reid, - 03/16/2015 MRI of the brain without gadolinium. History: Right-sided weakness 24 hours post-IV TPA and Technique: Sagittal T1 FLAIR, axial T2, T2 FLAIR, GRE and diffusion weighted sequences were performed pregadolinium. Findings: There is no acute hemorrhage or infarct. There is a small cluster of punctate foci of increased T2 and T2 FLAIR signal within the white matter adjacent to the left frontal horn of lateral ventricle. There is no mass or mass effect. There is no ventriculomegaly midline shift. The precervical junction is normal. The major intracranial vascular structures have normal flow-voids. The orbits are grossly normal. There is patchy mucosal thickening within the paranasal sinuses bilaterally. Conclusion: No acute findings. Rob Mayorga MD IMG MRI ORDERAB LES * TROPONIN I (03/15/2015 18:17 EDT) Troponin I (ng/mL) <0.034 <0.034 ng/ml 03/15/2015 19:54 EDT [facility] Blood specimen (specimen) BLOOD SPECIMEN / Unknown 03/15/2015 18:17 EDT 03/15/2015 19:09 EDT Rob Mayorga MD CHEMISTRY & BLO OD GAS ORDERABLES [facility] [address] [place] [address] * GLUCOSE, GLUCOMETER (03/15/2015 17:19 EDT) Glucose, Fingerstick 100 70 - 100 mg/dl 03/15/2015 17:23 EDT [facility] Advisor To [employer] ID [id number] 03/15/2015 17:23 EDT [facility] Comment:[facility] BLOOD SPECIMEN / Unknown 03/15/2015 17:19 EDT 03/15/2015 17:23 EDT Landon Dumont MD CHEMISTRY & BLOOD GA S ORDERABLES Performing Organization Address City/[facility]/ZIP Co de Phone Number [facility] [address] [place] [address] * UA REFLEX (03/15/2015 16:16 EDT) UA Billing Microscopic not indicated. 03/15/2015 22:40 EDT [facility] URINE / Unknown 03/15/2015 1 6:16 EDT 03/15/2015 22:24 EDT Landon Dumont MD URINALYSIS ORDERABLE S Performing Organization Address [facility] de Phone Number [facility] [address] [place] [address] * URINALYSIS WITH REFLEX MICROSCOPIC (03/15/2015 16:16 EDT) Color, UA Yellow 03/15/2015 22:40 EDT [facility] Clarity, UA Clear 03/15/2015 22:40 EDT [facility] Glucose, UA Neg Neg 03/15/2015 22:40 EDT [facility] Bilirubin, UA Neg Neg 03/15/2015 22:40 EDT [facility] Ketones, UA Neg Neg 03/15/2015 22:40 EDT [facility] Specific [place], Urine 1.010 1.001 - 1.035 03/15/2015 22:40 T [facility] Blood, UA Neg Neg 03/15/2015 22:40 EDT [facility] pH, UA 6.5 4.6 - 8.0 03/15/2015 22:40 EDT [facility] Protein, UA Neg Neg 03/15/2015 22:40 T [facility] Urobilinogen, UA 0.2 0.2 - 1.0 E.U./dl 03/15/2015 22:40 EDT [facility] Nitrite, UA Neg Neg 03/15/2015 22:40 EDT [facility] Leuk Esterase Neg Neg 03/15/2015 22:40 EDT [facility] URINE / Unknown 03/15/2015 1 6:16 EDT 03/15/2015 22:24 EDT Landon Dumont MD URINALYSIS ORDERABLE S Performing Organization Address [facility] de Phone Number [facility] [address] [place] [address] * URINE CULTURE IF UA POSITIVE - NON POCT URINALYSIS ONLY (03/15/2015 16:16 EDT) Culture if Indicated Culture not indicated by urinalysis results. 03/15/2015 22:49 EDT [facility] TOPOGRAPHY UNKNOWN / Unknown 03/15/2015 16:16 EDT 03/15/2015 22:24 EDT Landon Dumont MD MICROBIOLOGY - GENER AL ORDERABLES Performing Organization Address [facility] de Phone Number [facility] [address] [place] [address] * VL CAROTID/VERTEBRAL DUPLEX BILATERAL (03/15/2015 16:06 EDT) Anatomical Region Laterality Modality Other 03/15/2015 16:0 6 EDT Narrative 03/16/2015 9:40 EDT [facility] [place], [facility], [facility] [address] [place] [address] Technologist: Mono Hernandez IMPRESSIONS 1. 16-49% stenosis in the bilateral internal carotid arteries. 2. The bilateral vertebral arteries are patent with normal antegrade flow. Preliminary results available in PRISM. PROCEDURE: Carotid/vertebral arterial ultrasound; complete bilateral evaluation of the extracranial carotid system. ? 2D ultrasound, color flow Doppler, and spectral Doppler. INDICATION: Cerebral artery occlusion unspecified with cerebral infarction. HISTORY: Transient ischemic attack. RISK FACTORS: Current tobacco use. Hypertension. Diabetes mellitus. ??Hyperlipidemia. ??Coronary artery bypass grafting. DOPPLER FINDINGS: + +--------+-------+ + Location ? V sys ?? V ed ?? Flow analysis + +--------+-------+ + Right CCA - prox 131cm/s 27cm/s ? + +--------+-------+ + Right CCA - dist -84cm/s -21cm/s ? + +--------+-------+ + Right ECA ? -100cm/s -17cm/s ? + +--------+-------+ + Right ICA - prox -76cm/s -23cm/s ? + +--------+-------+ + Right ICA - dist -53cm/s -24cm/s ? + +--------+-------+ + Right vertebral -35cm/s -13cm/s Antegrade flow + +--------+-------+ + Left CCA - prox 104cm/s 22cm/s ? + +--------+-------+ + Left CCA - dist -87cm/s -27cm/s ? + +--------+-------+ + Left ECA ? -114cm/s -24cm/s ? + +--------+-------+ + Left ICA - prox -72cm/s -28cm/s ? + +--------+-------+ + Left ICA - dist -60cm/s -27cm/s ? + +--------+-------+ + Left vertebral ?? 41cm/s ?? 15cm/s Antegrade flow + +--------+-------+ + InnomA ? 147cm/s 0cm/s ? + +--------+-------+ + * VELOCITY RATIOS: +-------+ + + ? Right, V sys Left, V sys +-------+ + + ICA/CCA 0.9 ? 0.8 ? +-------+ + + * GREYSCALE FINDINGS: Right internal carotid: ??Smooth-surfaced homogeneous plaque. Left internal carotid: ??Smooth-surfaced homogeneous plaque. Electronically signed by: Satnam Lee [id number] Procedure Note Satnam Lee MD - 03/16/2015 [facility], [facility] [address] [place] [address] Technologist: Mono Hernandez IMPRESSIONS 1. 16-49% stenosis in the bilateral internal carotid arteries. 2. The bilateral vertebral arteries are patent with normal antegrade flow. Preliminary results available in PRISM. PROCEDURE: Carotid/vertebral arterial ultrasound; complete bilateral evaluation ofthe extracranial carotid system. 2D ultrasound, color flow Doppler, andspectral Doppler. INDICATION: Cerebral artery occlusion unspecified with cerebral infarction. HISTORY: Transient ischemic attack. RISK FACTORS: Current tobacco use. Hypertension. Diabetes mellitus. Hyperlipidemia.Coronary artery bypass grafting. DOPPLER FINDINGS: + +--------+-------+ + Location V sys V ed Flow analysis + +--------+-------+ + Right CCA - prox 131cm/s 27cm/s + +--------+-------+ + Right CCA - dist -84cm/s -21cm/s + +--------+-------+ + Right ECA -100cm/s -17cm/s + +--------+-------+ + Right ICA - prox -76cm/s -23cm/s + +--------+-------+ + Right ICA - dist -53cm/s -24cm/s + +--------+-------+ + Right vertebral -35cm/s -13cm/s Antegrade flow + +--------+-------+ + Left CCA - prox 104cm/s 22cm/s + +--------+-------+ + Left CCA - dist -87cm/s -27cm/s + +--------+-------+ + Left ECA -114cm/s -24cm/s + +--------+-------+ + Left ICA - prox -72cm/s -28cm/s + +--------+-------+ + Left ICA - dist -60cm/s -27cm/s + +--------+-------+ + Left vertebral 41cm/s 15cm/s Antegrade flow + +--------+-------+ + InnomA 147cm/s 0cm/s + +--------+-------+ + * VELOCITY RATIOS: +-------+ + + Right, V sys Left, V sys +-------+ + + ICA/CCA 0.9 0.8 +-------+ + + * GREYSCALE FINDINGS: Right internal carotid: Smooth-surfaced homogeneous plaque. Left internal carotid: Smooth-surfaced homogeneous plaque. Electronically signed by: Satnam Lee [id number] Rob Mayorga MD [facility] US VASCULAR ORDERABLES * CHEST PA AND LATERAL (03/15/2015 12:01 EDT) Anatomical Region Laterality Modality Other 03/15/2015 12:0 1 EDT 03/15/2015 12:53 EDT Narrative 03/15/2015 12:53 EDT CHEST PA AND LATERAL ??03/15/2015 12:01 PM Clinical History/Comments: stroke and known heart disease COMPARISON: None. TECHNIQUE: Frontal and lateral views of the chest were performed. FINDINGS: Soft tissues: ??Normal. Bones: Normal. Cardiac and mediastinal contours:Stent within the left anterior descending coronary artery. Lungs: Normal. ?? Pleura/diaphragms:Normal. IMPRESSION: No acute disease. Procedure Note Wellington Morgan MD - 03/15/2015 CHEST PA AND LATERAL 03/15/2015 12:01 PM Clinical History/Comments: stroke and known heart disease COMPARISON: None. TECHNIQUE: Frontal and lateral views of the chest were performed. FINDINGS: Soft tissues: Normal. Bones: Normal. Cardiac and mediastinal contours:Stent within the left anterior descending coronary artery. Lungs: Normal. Pleura/diaphragms:Normal. IMPRESSION: No acute disease. Rob Mayorga MD [facility] DIAGNOSTIC IMAGING ORDERABLES * (ABNORMAL) GLUCOSE, GLUCOMETER (03/15/2015 11:38 EDT) Glucose, Fingerstick 137(H) 70 - 100 mg/dl 03/15/2015 11:40 EDT [facility] Advisor To [employer] ID [id number] 03/15/2015 11:40 EDT [facility] Comment:Test Performed by [facility] BLOOD SPECIMEN / Unknown 03/15/2015 11:38 EDT 03/15/2015 11:40 EDT Landon Dumont MD CHEMISTRY & BLOOD GA S ORDERABLES [facility] [address] [place] [address] * EKG 12-LEAD (03/15/2015 10:54 EDT) 03/15/2015 10:5 4 EDT Narrative [facility] - 03/19/2015 10:49 EDT ? [facility] ? Test Date: ?2015-03-15 Pat Name: ? ROMEO COELHO ?Department: ?? Roy 4 ? Room: ? M401 Gender: ? 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 [id number] : ?1965 ? Requested By: ALYSSIA Basilio Order Number: [id number] ? Reading : ?? VILMA BENSON MD ? Measurements Intervals ?[place] ? Rate: ? 65 ? P: ?-5 [place]: ? 145 ?QRS: ?24 QRSD: ? 90 ? T: ?30 QT: ? 385 ? QTc: ?403 ? Interpretive Statements SINUS RHYTHM Compared to ECG 02/21/2014 18:59:09 No significant changes I reviewed the tracing and have either agreed or edited the findings in this report. Electronically Signed On 03-19-15 10:49:51 EDT by VILMA BENSON MD. 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 Electronically Signed On 03-19-15 10:49:51 EDT by VILMA LIZAMA. Rob Mayorga MD CARDIAC ECG ORD ERABLES Performing Organization Address City/[facility]/ZIP Co de Phone Number [facility] * TROPONIN I (03/15/2015 10:45 EDT) Troponin I (ng/mL) <0.034 <0.034 ng/ml 03/15/2015 11:31 EDT [facility] Blood specimen (specimen) BLOOD SPECIMEN / Unknown 03/15/2015 10:45 EDT 03/15/2015 11:07 EDT Rob Mayorga MD CHEMISTRY & BLO OD GAS ORDERABLES Performing Organization Address [facility] [[email or web address]] Co de Phone Number [facility] [address] [place] [address] * (ABNORMAL) GLUCOSE, GLUCOMETER (03/15/2015 7:42 EDT) Pathologist [facility] Glucose, Fingerstick 108(H) 70 - 100 mg/dl 03/15/2015 7:44 EDT [facility] Advisor To [employer] ID [id number] 03/15/2015 7:44 EDT [facility] Comment:Test [facility] BLOOD SPECIMEN / Unknown 03/15/2015 7:42 EDT 03/15/2015 7:44 EDT Landon Dumont MD CHEMISTRY & BLOOD GA S ORDERABLES Performing Organization Address [facility] [[email or web address]] Co de Phone Number [facility] [address] [place] [address] * MRSA MOLECULAR DETECTION (03/15/2015 6:00 EDT) Result No Staphylococcus aureus detected by PCR. 03/15/2015 9:35 [facility] Specimen of unknown material (specimen) NASAL ROUTE / Unknown 03/15/2015 6:00 EDT 03/15/2015 7:31 EDT Landon Dumont MD MICROBIOLOGY - GENER AL ORDERABLES [facility] [address] [place] [address] * (ABNORMAL) HEMAGRAM AND DIFFERENTIAL (03/15/2015 1:52 EDT) WBC 8.42 4.0 - 10.4 K/cmm 03/15/2015 3:40 [facility] RBC 4.87 4.36 - 5.78 M/cmm 03/15/2015 3:40 [facility] Hemoglobin 14.5 13.8 - 17.3 gm/dl 03/15/2015 3:40 [facility] HCT 43.2 39.5 - 50.2 % 03/15/2015 3:40 [facility] MCV 89 81 - 95 fl 03/15/2015 3:40 [facility] MCH 29.8 27.6 - 33.0 pg 03/15/2015 3:40 [facility] MCHC 33.6 32.8 - 36.4 gm/dl 03/15/2015 3:40 [facility] RDW-CV 13.7 11.8 - 14.1 % 03/15/2015 3:40 [facility] RDW-SD 42.0 36.5 - 45.9 fl 03/15/2015 3:40 [facility] PLT 151 141 - 320 K/cmm 03/15/2015 3:40 [facility] MPV 8.7 7.5 - 11.2 fl 03/15/2015 3:40 [facility] % Neutrophils 51.2 45.5 - 79.7 % 03/15/2015 3:40 [facility] % Lymphocytes 35.1 15.0 - 46.8 % 03/15/2015 3:40 EDT [facility] % Monocytes 7.4 1.8 - 12.0 % 03/15/2015 3:40 [facility] % Eosinophils 4.4 0.6 - 6.9 % 03/15/2015 3:40 [facility] % Basophils 1.9(H) 0.2 - 1.4 % 03/15/2015 3:40 [facility] ABS Neutrophils 4.31 2.20 - 8.85 K/cmm 03/15/2015 3:40 [facility] ABS Lymphs 2.95 1.09 - 3.30 K/cm 03/15/2015 3:40 [facility] ABS Monocytes 0.63 0.1 - 0.8 K/cm 03/15/2015 3:40 [facility] ABS Eosinophils 0.37 0.03 - 0.61 K/cmm 03/15/2015 3:40 [facility] ABS Basophils 0.16(H) 0.01 - 0.11 K/cmm 03/15/2015 3:40 [facility] Type of Diff: Automated 03/15/2015 3:40 [facility] Blood specimen (specimen) BLOOD SPECIMEN / Unknown 03/15/2015 1:52 EDT 03/15/2015 3:30 EDT Elvira Gray MD PACKAGES & DNA PROBE ORDERABLES Performing Organization Address City/State/[facility] [[email or web address]] Co de Phone Number [facility] [address] [place] [address] * ELECTROLYTES (03/15/2015 1:52 EDT) Sodium 143 136 - 145 mEq/L 03/15/2015 4:10 [facility] Potassium 3.8 3.5 - 5.0 mEq/L 03/15/2015 4:10 [facility] Chloride 109 96 - 110 mEq/L 03/15/2015 4:10 [facility] CO2 24 24 - 32 mEq/L 03/15/2015 4:10 [facility] Blood specimen (specimen) BLOOD SPECIMEN / Unknown 03/15/2015 1:52 EDT 03/15/2015 3:30 EDT Elvira Gray MD CHEMISTRY & BLOOD GA S ORDERABLES Performing Organization Address [facility] [[email or web address]] Co de Phone Number [facility] [address] [place] [address] * TSH (03/15/2015 1:52 EDT) TSH 1.97 0.35 - 5.00 uIU/ml 03/15/2015 10:51 EDT [facility] Blood specimen (specimen) BLOOD SPECIMEN / Unknown 03/15/2015 1:52 EDT 03/15/2015 3:30 EDT Elvira Gray MD CHEMISTRY & BLOOD GA S ORDERABLES Performing Organization Address [facility] de Phone Number [facility] [address] [place] [address] * LIPID PROFILE (INCLUDES CHOLESTEROL, TRIGLYCERIDES, HDL, LDL) (03/15/2015 1:52 EDT) Cholesterol 118 mg/dl 03/15/2015 4:10 [facility] Comment: Desirable:<200 Borderline High:200-239 High:>zr=044 Triglycerides 274 mg/dl 03/15/2015 4:10 [facility] Comment: Normal:<150 Borderline High:150-199 High:200-499 Very High:>wz=429 HDL 30 mg/dl 03/15/2015 4:10 [facility] Comment: Low:<40 Normal:40-60 Desirable: >60 LDL, Calculated 33 mg/dl 5 4:10 [facility] Comment: Optimal:<100 Near Optimal:100-129 Borderline High:130-159 High:160-189 Very High:>ss=300 Chol/HDL Ratio 3.9 03/15/2015 4:10 [facility] Fasting? Unknown 03/15/2015 3:30 [facility] Non HDL Cholesterol 88 mg/dl 03/15/2015 4:10 EDT [facility] Comment: Desirable:<130 Borderline:130-159 High: 160-189 Very High: >cn=680 Blood specimen (specimen) BLOOD SPECIMEN / Unknown 03/15/2015 1:52 EDT 03/15/2015 3:30 EDT Elvira Gray MD CHEMISTRY & BLOOD GA S ORDERABLES Performing Organization Address [facility] de Phone Number [facility] [address] [place] [address] * HEMOGLOBIN A1C (03/15/2015 1:52 EDT) Hemoglobin A1C 6.4 % 03/15/2015 9:40 EDT [facility] Comment: Reference Range: <5.7% Normal 5.7-6.4% Increased risk for diabetes =>6.5% Diagnostic for diabetes (if confirmed) The A1c goal for non adults in general is <7%. The A1c goal for selected patients may be significantly lower than 7% if this can be achieved without significant hypoglycemia or other adverse effects of treatment. Est Avg Glucose 137 mg/dl 5 9:40 EDT [facility] Comment: eAG represents the A1c result expressed as average glucose in mg/dl. Blood specimen (specimen) BLOOD SPECIMEN / Unknown 03/15/2015 1:52 EDT 03/15/2015 3:30 EDT Elvira Gray MD CHEMISTRY & BLOOD GA S ORDERABLES Performing Organization Address [facility] de Phone Number [facility] [address] [place] [address] * (ABNORMAL) BUN (03/15/2015 1:52 EDT) BUN 9(L) 10 - 26 mg/dl 03/15/2015 4:10 EDT [facility] Blood specimen (specimen) BLOOD SPECIMEN / Unknown 03/15/2015 1:52 EDT 03/15/2015 3:30 EDT Elvira Gray MD CHEMISTRY & BLOOD GA S ORDERABLES Performing Organization Address [facility] [[email or web address]] Co de Phone Number [facility] [address] [place] [address] * CREATININE (03/15/2015 1:52 EDT) Creatinine 0.81 0.66 - 1.25 mg/dl 03/15/2015 4:10 EDT [facility] GFR, Calculated 106 >60 ml/min/1.7 3m2 03/15/2015 4:10 EDT [facility] Comment: eGFR calculated using CKD-EPI equation for non Americans. Multiply eGFR by 1.16 for Americans. Blood specimen (specimen) BLOOD SPECIMEN / Unknown 03/15/2015 1:52 EDT 03/15/2015 3:30 EDT Elvira Gray MD CHEMISTRY & BLOOD GA S ORDERABLES Performing Organization Address [facility] [[email or web address]] Co de Phone Number [facility] [address] [place] [address] * SCREENING GLUCOSE (03/15/2015 1:52 EDT) Glucose, Screening 98 70 - 100 mg/dl 03/15/2015 4:10 EDT [facility] Blood specimen (specimen) BLOOD SPECIMEN / Unknown 03/15/2015 1:52 EDT 03/15/2015 3:30 EDT Elvira Gray MD CHEMISTRY & BLOOD GA S ORDERABLES Performing Organization Address City/[facility] [[email or web address]] Co de Phone Number [facility] [address] [place] [address] documented in this encounter Visit Diagnoses Diagnosis CVA (cerebral vascular accident) (HCC-CMS)- Primary Unspecified cerebral artery occlusion with cerebral infarction CVA (cerebral vascular accident) (HCC-CMS) Unspecified cerebral artery occlusion with cerebral infarction tPA/rtPA given at another facility within 24 hrs prior to admission Status post administration of tPA (rtPA) in a different facility within the last 24 hours prior to admission to current facility Hemispheric carotid artery syndrome documented in this encounter Administered Medications Inactive Administered Medications - up to 3 most recent administrations Medication Order MAR Action Action Date Dose Rate Site aspirin chewable tablet 81 mg 81 mg, oral, DAILY, First dose on Thu03/15/15 at 2145, Until Discontinued, Routine Given 03/15/2015 22:45 EDT 81 mg aspirin EC tablet 325 mg 325 mg, oral, DAILY, First dose on Thu03/16/15 at 0900, Until Discontinued, Routine Given 03/16/2015 9:23 EDT 325 mg buPROPion (WELLBUTRIN) tablet 150 mg 150 mg, oral, 2 TIMES DAILY, First dose on Thu03/15/15 at 0900, Until Discontinued, Routine Given 03/16/2015 8:40 EDT 150 mg Given 03/15/2015 22:46 EDT 150 mg Given 03/15/2015 8:07 EDT 150 mg clopidogrel (PLAVIX) tablet 75 mg 75 mg, oral, DAILY, First dose on Thu03/16/15 at 0900, Until Discontinued, Routine Given 03/16/2015 8:40 EDT 75 mg DULoxetine (CYMBALTA) capsule 60 mg 60 mg, oral, 2 TIMES DAILY, First dose on Thu03/15/15 at 0900, Until Discontinued, Routine Given 03/16/2015 8:40 EDT 60 mg Given 03/15/2015 22:45 EDT 60 mg Given 03/15/2015 8:07 EDT 60 mg heparin injection 5,000 Units 5,000 Units, subcutaneous, EVERY 8 HOURS, First dose on Thu03/16/15 at 0000, Until Discontinued, Routine Given 03/16/2015 0:04 EDT 5,000 Units isosorbide mononitrate (IMDUR) CR tablet 120 mg 120 mg, oral, DAILY, First dose on Thu03/15/15 at 0900, Until Discontinued, Routine Given 03/16/2015 8:40 EDT 120 mg Given 03/15/2015 8:06 EDT 120 mg metoprolol (LOPRESSOR) tablet 100 mg 100 mg, oral, 2 TIMES DAILY, First dose on Thu03/15/15 at 0900, Until Discontinued, Routine Given 03/16/2015 8:40 EDT 10 0 mg Given 03/15/2015 22:46 EDT 100 mg Given 03/15/2015 8:06 EDT 100 mg ondansetron (ZOFRAN-ODT) disintegrating tablet 4 mg 4 mg, oral, EVERY 4 HOURS PRN, Starting on Thu03/15/15 at 1029, Until Thu03/16/15 at 1503, Nausea, Routine Given 03/15/2015 10:43 EDT 4 mg pantoprazole (PROTONIX) tablet 40 mg 40 mg, oral, DAILY, First dose on Martha 03/15/15 at 0900, Until Discontinued, Routine Given 03/16/2015 8:40 EDT 40 mg Given 03/15/2015 8:06 EDT 40 mg ranolazine (RANEXA) ER tablet 500 mg 500 mg, oral, 2 TIMES DAILY, First dose on Thu03/15/15 at 0900, Until Discontinued, Routine Given 03/16/2015 8:40 EDT 50 0 mg Given 03/15/2015 23:59 EDT 500 mg Given 03/15/2015 8:06 EDT 500 mg rosuvastatin (CRESTOR) tablet 40 mg 40 mg, oral, DAILY, First dose on Thu03/15/15 at 0900, Until Discontinued, Routine Given 03/16/2015 8:40 EDT 40 mg Given 03/15/2015 8:06 EDT 40 mg sodium chloride 0.9 % (NS) infusion at 100 mL/hr, intravenous, CONTINUOUS, Starting on Thu03/15/15 at 0645, Until Thu03/16/15 at 0630, Routine Rate Documented 03/16/2015 6:00 EDT 100 mL/hr Rate Documented 03/16/2015 5:00 EDT 100 mL/hr Rate Documented 03/16/2015 3:00 EDT 100 mL/hr documented in this encounter Discontinued Medications Medication Sig Discontinue Reason Start Date End Da te aspirin chewable 81 mg tablet Take 81 mg by mouth daily. Discontinued by another clinician 03/16/2015 documented as of this encounter Historical Medications * This list may reflect changes made after this encounter. Medication Sig Dispensed Refills Start Date End Date aspirin 325 mg tablet Take 325 mg by mouth daily 04/08/2023 added in this encounter Active and Recently Administered Medications Times are shown in EDT. Scheduled Medication Order 03/14/2015 03/15/2015 03/16/2015 aspirin chewable tablet 81 mg (CANCELED) 81 mg, oral, DAILY, First dose on Martha 03/15/15 at 2145, Until Discontinued, Routine 2245 (Given - Provider: Emmy Gomez RN) aspirin EC tablet 325 mg (CANCELED) 325 mg, oral, DAILY, First dose on Thu03/16/15 at 0900, Until Discontinued, Routine 0923 (Given - Provid er: Abena Garcia RN) buPROPion (WELLBUTRIN) tablet 150 mg (CANCELED) 150 mg, oral, 2 TIMES DAILY, First dose on Thu03/15/15 at 0900, Until Discontinued, Routine 0807 (Given - Provider: Steffanie Chicas RN)2246 (Given - Provider: Emmy Gomez RN) 0840 (Given - Provider: Abena Garcia RN) clopidogrel (PLAVIX) tablet 75 mg (CANCELED) 75 mg, oral, DAILY, First dose on Thu03/16/15 at 0900, Until Discontinued, Routine 0840 (Given - Provid er: Abena Garcia RN) DULoxetine (CYMBALTA) capsule 60 mg (CANCELED) 60 mg, oral, 2 TIMES DAILY, First dose on Thu03/15/15 at 0900, Until Discontinued, Routine 08 (Given - Provider: Steffanie Chicas RN)224 (Given - Provider: Emmy Gomez RN) 0840 (Given - Provider: Abena Garcia RN) heparin injection 5,000 Units (CANCELED) 5,000 Units, subcutaneous, EVERY 8 HOURS, First dose on Thu03/16/15 at 0000, Until Discontinued, Routine 0004 (Given - Provid er: Emmy Gomez RN)0923 (Hold - Provider: Abena Garcia RN - Reason: Change in condition) isosorbide mononitrate (IMDUR) CR tablet 120 mg (CANCELED) 120 mg, oral, DAILY, First dose on Thu03/15/15 at 0900, Until Discontinued, Routine 0806 (Given - Provider: Steffanie Chicas RN) 0840 (Given - Provider: Abena Garcia RN) metoprolol (LOPRESSOR) tablet 100 mg (CANCELED) 100 mg, oral, 2 TIMES DAILY, First dose on Thu03/15/15 at 0900, Until Discontinued, Routine 0806 (Given - Provider: Steffanie Chicas RN)2246 (Given - Provider: Emmy Gomez RN) 0840 (Given - Provider: Abena Garcia, VERO) pantoprazole (PROTONIX) tablet 40 mg (CANCELED) 40 mg, oral, DAILY, First dose on Thu03/15/15 at 0900, Until Discontinued, Routine 0806 (Given - Provider: Steffanie Chicas RN) 0840 (Given - Provider: Abena Garcia, VERO) ranolazine (RANEXA) ER tablet 500 mg (CANCELED) 500 mg, oral, 2 TIMES DAILY, First dose on Thu03/15/15 at 0900, Until Discontinued, Routine 0806 (Given - Provider: Steffanie Chicas RN)2359 (Given - Provider: Emmy Gomez RN - Comment: pt off unit) 0840 (Given - Provider: Abena Garcia, VERO) rosuvastatin (CRESTOR) tablet 40 mg (CANCELED) 40 mg, oral, DAILY, First dose on Thu03/15/15 at 0900, Until Discontinued, Routine 0806 (Given - Provider: Steffanie Chicas RN) 0840 (Given - Provider: Abena Garcia RN) Continuous Medication Order 03/14/2015 03/15/2015 03/16/2015 sodium chloride 0.9 % (NS) infusion (CANCELED) at 100 mL/hr, intravenous, CONTINUOUS, Starting on Thu03/15/15 at 0645, Until Thu03/16/15 at 0630, Routine 0630 (New Bag - Provider: Pao Valdivia)0700 (Rate Documented - Provider: Steffanie Chicas RN)0800 (Rate Documented - Provider: Steffanie Chicas RN)0900 (Rate Documented - Provider: Steffanie Chicas RN)1000 (Rate Documented - Provider: Steffanie Chicas RN)1100 (Rate Documented - Provider: Steffanie Chicas RN)1200 (Rate Documented - Provider: Steffanie Chicas RN)1300 (Rate Documented - Provider: Steffanie E. Deutscher, RN)1400 (Rate Documented - Provider: Steffanie Chicas RN)1500 (Rate Documented - Provider: Steffanie Chicas RN)1600 (Rate Documented - Provider: Steffanie Chicas RN)1700 (Rate Documented - Provider: Steffanie Chicas RN)1800 (Rate Documented - Provider: Steffanie Chicas RN)1824 (New Bag - Provider: Steffanie Chicas RN)1900 (Rate Documented - Provider: Steffanie Chicas RN)2000 (Rate Documented - Provider: Emmy Gomez RN)2200 (Rate Documented - Provider: Emmy Gomez RN)2300 (Rate Documented - Provider: Emmy Gomez RN) 0000 (Rate Documented - Provider: Emmy Gomez RN)0100 (Rate Documented - Provider: Emmy Gomez RN)0211 (Rate Documented - Provider: Emmy Gomez RN)0300 (Rate Documented - Provider: Emmy Gomez RN)0500 (Rate Documented - Provider: Emmy Gomez RN)0600 (Rate Documented - Provider: Emmy Gomez RN)0658 (IV Stopped - Provider: Emmy Gomez RN) PRN Medication Order 03/14/2015 03/15/2015 03/16/2015 ondansetron (ZOFRAN-ODT) disintegrating tablet 4 mg (CANCELED) 4 mg, oral, EVERY 4 HOURS PRN, Starting on Martha 03/15/15 at 1029, Until Thu03/16/15 at 1503, Nausea, Routine 1043 (Given - Provider: Hortencia Chicas RN) documented in this encounter Orders Medications Ordered That Nuno ht Not Have Been Administered Count Last Ordered Date First Ordered Date albuterol (ACCUNEB) nebulize r solution 0.63 mg 1 03/15/2015 dextrose 50 % solution 12.5 g 1 03/15/2015 furosemide (LASIX) tablet 20 mg 1 5 glucagon (human recombinant) injection 1 mg 1 03/15/2015 hydrALAzine (APRESOLINE) 10 mg in sodium chloride (NS) 0.9 % 50 mL IVPB 1 03/15/2015 hydrALAzine (APRESOLINE) injection 10 mg 1 03/15/2015 insulin aspart (NOVOLOG FLEXPEN) injection 2 03/15/2015 labetalol (TRANDATE) injection 10 mg 1 02/22 metFORMIN (GLUCOPHAGE) tablet 850 mg 1 02/22 nitroGLYCERIN (NITROSTAT) SL tablet 0.4 mg 1 03/15/2015 Diet Count Last Ordered Date First Orde red Date DISCHARGE DIET 1 03/16/2015 Nursing Count Last Ordered Date First Orde red Date ACTIVITY INSTRUCTIONS 1 03/16/2015 BATHING INSTRUCTIONS 1 03/16/2015 DRIVING INSTRUCTIONS 1 03/16/2015 CONTRAINDICATION TO ANTICOAG ULATION THERAPY 2 03/15/2015 HEIGHT AND WEIGHT 1 03/15/2015 Consult Count Last Ordered Date First Orde red Date CONSULT CASE MANAGEMENT 1 03/15/2015 OT Count Last Ordered Date First Orde red Date OT EVALUATION AND TREAT 1 03/15/2015 Respiratory Care Count Last Ordered Date First Ordered Date RESPIRATORY CARE EVALUATION ONLY 3 03/16/20 15 03/15/2015 IV Count Last Ordered Date First Orde red Date IV REQUEST 1 03/15/2015 Admission Count Last Ordered Date First Orde red Date STATUS: INPATIENT ACUTE ADMISSION 1 015 Transfer Count Last Ordered Date First Orde red Date NOTIFY PPS OF DISCHARGE COMPLETE 1 03/16/20 15 TRANSFER PATIENT 1 03/16/2015 NOTIFY PPS OF ROOM CHANGE COMPLETE 1 2014 UR PATIENT STATUS CHANGE 1 03/15/2015 PPS NOTIFICATION OF PATIENT ARRIVAL ON UNIT 1 03/14/2015 Discharge Count Last Ordered Date First Orde red Date DISCHARGE PATIENT 1 03/16/2015 Legal Count Last Ordered Date First Orde red Date MISCELLANEOUS DISCHARGE INSTRUCTIONS 1 02/22 documented in this encounter Care Teams Lead Pourer Relationship Specialty Start Date End Date Sarita Lim MD [address] [place] [address] PCP - General 12/17/11 documented as of this encounter
--- OUTSIDE RECORDS SUMMARY | 2024-04-30 13:45 | XMS_ITS | Encounter Summary ---
Author Organization [facility] Address [address] [place] [address] Care Team Providers Care Tissue Packer Name Role Phone Sarita Lim MD Primary Care Provider [phone] Reason for Referral * Consult (Routine) - Closed Specialty Diagnoses / Procedures Referred By Contac t Referred To Contact Diagnoses S/P coronary artery stent placement Chest pain Kemi Pineda NP [address] [place] [id number] Benjie Leyva MD [address] [place] [id number] Referral ID Status Reason Start Date Expiration Date V isits Requested Visits Authorized [id number] Closed Specialty Services Required 02/23/2014 1 1 Question Answer Reason for Request: chest pain Scheduling Comments (optional ? describe specific scheduling needs if applicable): already scheduled Expected Discharge Date (Inpatient Only): 02/23/2014 Comments Already scheduled with Dr Leyva February at [address] Lyeva's telephone number is [phone]. * Consult (Routine) - Closed Specialty Diagnoses / Procedures Referred By Contac t Referred To Contact Diagnoses S/P coronary artery stent placement Chest pain Kemi Pineda NP [address] [place] [address] Referral ID Status Reason Start Date Expiration Date V isits Requested Visits Authorized [id number] Closed Specialty Services Required 02/22/2014 1 1 Question Answer Reason for Request: chest pain Scheduling Comments (optional ? describe specific scheduling needs if applicable): now, previously requested after 02/15/14 [facility] admission Expected Discharge Date (Inpatient Only): 02/23/2014 Comments Previously requested, please refer to cardiac rehab at [facility] Encounter Details Date Type Department Care Team (Late st Contact Info) Description 02/21/2014 18:30 EDT - 02/23/2014 15:44 EDT Hospital Encounter [facility] Cardiac/Telemetry Unit [address] [place] [address] [phone] Rafy Lopez MD [address] [place] [phone] Jez Ortiz MD [address] [place] [phone] Cali Sage MD [address] [place] [phone] Chest pain (Primary Dx); S/P coronary artery stent placement; CAD (coronary artery disease) Discharge Disposition: Home or Self Care Social History Tobacco Use Types Packs/Day Years Used Date Smoking Tobacco: Every Day Cigarettes Alcohol Use Standard Drinks/Week Comments Not Asked 0 (1 standard drink = 0.6 oz pur e alcohol) Sex and Gender Information Value Date Recorded Sex Assigned at Not on file Gender Identity Male 04/08/2023 10:55 EDT Sexual Orientation Not on file documented as of this encounter Last Filed Vital Signs Vital Sign Reading Time Taken Comments Blood Pressure 100/55 02/23/2014 0700 EDT Pulse 73 02/21/2014 1848 EDT Temperature 36.6 ??C (97.9 ??F) 02/23/2014 0700 EDT Respiratory Rate 20 02/23/2014 0700 EDT Oxygen Saturation 97% 02/23/2014 0700 EDT Inhaled Oxygen Concentration - - Weight 107.4 kg (236 lb 12.8 oz) 02/23/2014 0523 EDT Height 179.1 cm (5' 10.5) 02/21/2014 1848 EDT Body Mass Index 33.5 02/21/2014 1848 EDT documented in this encounter Functional Status Functional Status Response Date of Assess ment Are you deaf or do you have serious difficulty h earing? No 02/21/2014 Are you blind or do you have serious difficulty seeing, even when wearing glasses? No 02/21/2014 Do you have serious difficul ty walking or climbing stairs? (5 years old or older) No 02/21/2014 Do you have difficulty dress ing or bathing? (5 years old or older) No 02/21/2014 Because of a physical, menta l, or emotional condition, do you have difficulty doing errands alone such as visiting a doctor's office or shopping? (15 years old or older) No 02/21/2014 Cognitive Status Response Date of Assessm ent Because of a physical, menta l, or emotional condition, do you have serious difficulty concentrating, remembering, or making decisions? (5 years old or older) Yes 02/21/2014 documented as of this encounter Discharge Summaries * Jez Ortiz Jr., MD - 02/22/2014 1920 EDT Discharge Summary Attending Physician: Rafy Lopez MD Date of Admission: 02/21/2014 Date of Discharge: 02/23/14 Disposition: Home Reason for Admission: Chest pain Hospital Problems: Principal Problem: Unstable angina Active Problems: CAD (coronary artery disease) Principal Procedure: Exercise stress test Secondary Procedures: n/a Hospital Course: Romeo Coelho is a 48 y.o.male with PMH of CAD s/p PCI at [facility] in May 2012 and Jul 2013 and admitted at [facility] on 02/15 for USAP and received JACINDA x 2 to LAD., tobacco abuse, HTN,HLD, DM and osteoarthritis of the neck who presents with chest pain since Thursday. He says he has had chest pain since 3 days prior to admission. He was walking with his daughter when he had the sudden onset of moderate chest pain. His pain waxed and waned over the next two days, but it was relieved with SL nitro. His chest pain increased in frequency and severity to the point ofhaving unremitting chest pain and was taken to [facility]. There, troponin and EKG were negative of signs of ischemia. He was started on heparin and nitro gtt and transferred to [facility] for unstable angina. On arrival his chest pain had resolved. His cardiac biomarkers remained negative. He was loaded with ranolazine and taken for exercise stress test on 02/23/2014. Exercise stress test was negative (pending release of final results) and patient was discharged with a prescription to continue ranolazine for angina. Upon discharge, patient denied any chest pain, shortness of breath, diaphoresis, nausea or vomiting. He was eating and ambulating well. He is to continue the medications he was discharged with during the previous admission as instructed. Results Pending at Discharge: Test results still pending from this admission None Discharge Medications: START taking these medications Sig ranolazine 500 mg SR tablet Commonly known as: RANEXA 500 mg, oral, 2 TIMES DAILY CONTINUE taking these medications Sig aspirin [...] known as: PROTONIX 40 mg, oral, DAILY rosuvastatin 20 mg tablet Commonly known as: CRESTOR 20 mg, oral, DAILY Allergies: Lisinopril (bulk) and Thallium-201 Follow-Up Appointments and Procedures Recommended to Patient: Follow-up appointments and procedures Amb Consult/Follow Up Cardiac Rehabilitation Previously requested, please refer to cardiac rehab at [facility] Reason for Request: chest pain Expected Discharge Date (Inpatient Only): 02/23/2014 Scheduling Time Frame: now, previously requested after 02/15/14 [facility] admission CONSULT: Consulting provider to render an opinion, attending physician continues to manage the careof the patient. REFERRAL: Care transferred to a second provider who assumes responsibility for all or a portion of the patient's care. FOLLOW UP: Used by a current provider to schedule an outpatient visit within their service or practice. Authorizing Provider: Kemi Pineda NP Amb Consult/Follow Up Cardiology Already scheduled with Dr Leyva February at [address] Leyva's telephone number is [phone]. Reason for Request: chest pain Expected Discharge Date (Inpatient Only): 02/23/2014 Scheduling Time Frame: already scheduled CONSULT: Consulting provider to render an opinion, attending physician continues to manage the careof the patient. REFERRAL: Care transferred to a second provider who assumes responsibility for all or a portion of the patient's care. FOLLOW UP: Used by a current provider to schedule an outpatient visit within their service or practice. Authorizing Provider: Kemi Pineda NP Rosannah M. Velasquez, M.D. Internal Medicine, PGY-1 02/23/2014 ATTENDING Attestation statement: I saw and examined the patient with the resident. I agree with the findings and plan of care documented in the resident's note. Jez Ortiz Jr., MD electrical tech/project manager [facility] Pager [phone] documented in this encounter Medications at Time [...] Dispensed Refills Start Date End Da te ranolazine (RANEXA) 500 mg SR tablet Take 1 Tab by mouth 2 times daily. 60 Tab 3 02/23/2014 documented in this encounter Discharge Disposition Disposition Code Departure Means Destination Home or Self Care documented in this encounter Progress Notes * Kemi Pineda NP - 02/23/2014 1209 EDT Stress test results reviewed with stress laboratory supervisor. Exercised for almost 7 minutes and patient stoppedhis own test secondary to ANDERSON. Experienced minimal chest tightness, = 1, scale 1-10, which resolvedalmost immediately. Stress EKG negative for ischemia. Reviewed with Dr Arechiga. Plan: discharge home on current dose Ranexa with patient instructions forlow exertional level to allow for full effect of Ranexa at 2 weeks. Follow up as scheduled: Dr Leyva [facility], cardiac rehab [facility], tobacco cessation. Tele: NSR 63, no events Exam: CV: S1 S2 no m/r/g Lungs CTA bilaterally Right radial: 2+ no residual ecchymosis or hematoma from 02/15/14 PCI Voiding without difficulty, no dyspepsia Assess: stable for discharge Plan: home today on Ranexa with limited exercise until fully therapeutic Follow up scheduled with Dr Leyva in [facility] Cardiac rehab [facility] Continue smoking cessation D/w Ludwig Tracy and Moo * Alyssa Phan - 02/23/2014 0901 EDT Spoke with Fany at [facility] transport. They will need a call when patient is ready [phone]. After 4:30pm call [phone]. 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 Reviewed new medication, Ranexa, and upcoming ETT withpatient. * Nay Cortés MD - 02/22/2014 1156 EDT Cardiology DAILY PROGRESS NOTE Admit Date: 02/21/2014 Hospital day: LOS: 1 day Date of Service: 02/22/2014 CC: Chest pain Summary of Last 24hrs: NAEO Subjective: Patient reports feeling generally well this morning. He denies any current chest pain, shortness ofbreath, nausea, vomiting. Review of Systems Denies chest pains, palpitations, dyspnea, N/V, abdominal pain, lightheadedness/dizziness, diaphoresis, headache. 10-point ROS negative unless otherwise noted. As outlined above. Objective: 02/21 0700 - 02/22 0659 In: 340.1 [P.O.:200; I.V.:140.1] Out: 700 [Urine:700] Blood pressure 126/77, pulse 73, temperature 35.6 ??C (96.1 ??F), temperature source Tympanic, resp. rate 18, height 179.1 cm (70.5), weight 108.909 kg (240 lb 1.6 oz), SpO2 99.00%. Body mass index is 33.95 kg/(m^2). Gen: NAD, alert, cooperative CV: RRR, normal S1/S2, no murmurs/rubs/gallops appreciated Resp: CTAB, no wheezes/rales/rhonchi Abd: soft, NTND, +BS Extr: no peripheral edema Pulses:2+ and symmetric Current Facility-Administered Medications Medication Route Frequency ??? [...] (CYMBALTA) capsule 60 mg oral BID ??? gabapentin (NEURONTIN) capsule 300 mg oral TID ??? glucagon (human recombinant) injection 1 mg intramuscular PRN ??? heparin 1,000 unit/mL injection 6,200 Units intravenous PRN Or ??? heparin 1,000 unit/mL injection 3,100 Units intravenous PRN ??? heparin in 1/2 NS 25,000 unit/250 mL infusion intravenous CONTINUOUS ??? insulin aspart (NOVOLOG FLEXPEN) injection subcutaneous QHS ??? insulin aspart (NOVOLOG FLEXPEN) injection subcutaneous TID WC ??? isosorbide mononitrate (IMDUR) CR tablet 120 mg oral DAILY ??? magnesium oxide (MAG-OX) tablet 400 mg oral BID ??? metoprolol (LOPRESSOR) tablet 100 mg oral BID ??? nitroGLYCERIN (NITROSTAT) SL tablet 0.4 mg sublingual Q5 MINUTES PRN ??? pantoprazole (PROTONIX) tablet 40 mg oral DAILY ??? ranolazine (RANEXA) ER tablet 500 mg oral BID ??? rosuvastatin (CRESTOR) tablet 20 mg oral DAILY Data Review: CBC: WBC/Hgb/Hct/Plts: 8.93/14.6/42.7/177 (02/22 619) BMP: Recent Labs 02/21/14 1908 02/22/14 0619 NA 143 143 K 3.9 4.0 CL 106 105 CO2 25 28 BUN 8* 9* CREATININE 0.72 0.80 Coags: Recent Labs 02/21/14 2136 02/22/14 0201 02/22/14 0619 PTT 64* 71* 70* FSBS: Recent Labs 02/21/14 1954 02/21/14 2206 02/22/14 0630 02/22/14 1115 GLUCOSEFINGE 72 86 131* 102* Cardiac Biomarkers: Recent Labs 02/21/14 1908 02/22/14 0201 02/22/14 1004 CK 38 36 53 MB <0.22 <0.22 <0.22 TROPONINI <0.034 <0.034 <0.034 Assessment: 48 y.o. male with PMH including PCI 1 week ago who presented with chest pain and admitted for unstable angina. Plan: Unstable angina: worsening chest pain after PCI DESx2 to LAD 1 week ago -exercise stress test tomorrow -begin ranolazine for 3 doses prior to stress test -heparin gtt -plavix 75mg daily -Monitor on telemetry -Aspirin 81mg -metoprolol 100mg BID -rosuvastatin 20mg -diltiazem 240mg -Nitro/ Morphine prn Diabetes, type 2: Good control with HbA1c 6.8% -Consistent carbohydrate diet -FS before meals and bedtime -SSI, Consider scheduling Aspart and adding Lantus -Diabetes education before D/C PPX: heparin Code: Full Dispo: uncertain, will evaluate after stress test tomorrow Nay Cortés M.D. Internal Medicine, PGY-1 02/22/2014 11:57 ADDENDUM: Patient is on home meds of cymbalta and bupropion for depression. * Katia Nichols, RN - 02/22/2014 1017 EDT Initial Case Management/Social Work Assessment and Discharge Plan/Readmission Risk Assessment Physician working diagnosis: Romeo Coelho is a 48 y.o.male with PMH of CAD s/p PCI at [facility] in May 2012 and Jul 2013, tobacco abuse, HTN, HLD, DM and osteoarthritis of the neck who presents with chest pain since Thursday. He was recently admitted on 02/15 for USAP and received JACINDA x 2 to LAD. Patient (or designee) understanding of admission: Chest Pain since last admit Patient Contact Information: MEDICAL AND COMMUNITY SERVICES: Primary Care Provider: SARITA LIM MD Pharmacy: LIVING ARRANGEMENTS AND ACCESSIBILITY ISSUES: House Are there any home access issues? No What in home social supports are available to the patient? Dasia Coelho, spouse, ADVANCED DIRECTIVES, POA &/or COLST IN PLACE: No CULTURAL, EPISCOPALIAN and/or LANGUAGE factors affecting health care/discharge planning:: N/A FUNCTIONAL & PSYCHOSOCIAL INFORMATION: Patient is independent. He's on disability but does not use DME MEDICAL INSURANCE IN PLACE: Yes Medicare Type: A;B Medicaid Type: Community DISCHARGE RISK ASSESSMENT: Diagnosis of CHF/COPD/Diabetes/AIDS;Repeat hospitalizations/ED visits;Polypharmacy, > 7 medications Total # selected above: Score of 2 - 4: This patient is at MODERATE RISK for re-hospitalization Tentative plan to address the risk of re-hospitalization for those at HIGH or MODERATE RISK: Bring risk factors to attention of team to be addressed INITIAL TRANSITION PLAN: Plan for LHC today Transportation from hospital in place? No,Patient need assist with transportation. 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 He will have a stress test today. If negative he can d/c home. If positive, he will have a LHC tomorrow (02/23) and transportation will need to be cancelled. Post hospitalization Plan: Return to independent living New DME Requirements: No Initial plan discussed with: patient Katia Nichols RN 02/22/2014 10:18 documented in this encounter H&P Notes * Jez Ortiz Jr., MD - 02/21/2014 1948 EDT Cardiology Admission H+P Date of Service: 02/21/2014 Chief Complaint: Chest pain HPI: Romeo Coelho is a 48 y.o.male with PMH of CAD s/p PCI at [facility] in May 2012 and Jul 2013, tobacco abuse, HTN, HLD, DM and osteoarthritis of the neck who presents with chest pain since Thursday. He was recently admitted on 02/15 for USAP and received JACINDA x 2 to LAD. Rosuvastatin was increased to 20 mg daily on discharge. He says he has had chest pain since Thursday, 02/18. The chest pain occurs at rest and was relieved with nitro until today. Today, he had unremitting chest pain and was taken to [facility]. There, troponin and EKG were negative. He was started on heparin and nitro gtt and transferred to [facility] for observation. On arrival, his chest pain had resolved. He had no nausea, vomiting, diaphoresis, or shortness of breath. Review of Systems: Pertinent items are noted in Subjective/HPI PMH PSH Past Medical History Diagnosis Date [...] file ??? Alcohol Use: Not on file Rare alcohol use. 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 Living situation: Lives in [place], [place], with . Family History Problem Relation Age of Onset ??? Heart Disease ??? Diabetes Medications No current facility-administered medications on file prior to encounter. Current Outpatient Prescriptions on File Prior to Encounter Medication Sig Dispense Refill ??? aspirin chewable 81 mg tablet Take 81 mg by mouth daily. ??? buPROPion (WELLBUTRIN) 75 mg tablet Take 150 mg by mouth 2 times daily. ??? clopidogrel (PLAVIX) 75 mg tablet Take 1 Tab by mouth daily. 30 Tab 11 ??? cyclobenzaprine (FLEXERIL) 10 mg tablet Take 10 mg by mouth 2 times daily as needed for Muscle Spasms. ??? DILTiazem (TIAZAC) 240 mg SR capsule Take 240 mg by mouth daily. ??? DULoxetine (CYMBALTA) 60 mg capsule Take 60 mg by mouth 2 times daily. ??? furosemide (LASIX) 20 mg tablet Take 20 mg by mouth daily as needed. ??? gabapentin (NEURONTIN) 300 mg capsule Take 300 mg by mouth 3 times daily 300 am, 300 lunch, 600qhs . ??? isosorbide mononitrate (IMDUR) 120 mg CR tablet Take 120 mg by mouth daily. ??? LEVALBUTEROL HCL INHALATION Inhale as directed. ??? magnesium oxide (MAG-OX) 400 mg tablet Take 400 mg by mouth 2 times daily. ??? metFORMIN (GLUCOPHAGE) 850 mg tablet Take 850 mg by mouth 2 times daily. ??? metoprolol (LOPRESSOR) 100 mg tablet Take 100 mg by mouth 2 times daily. ??? nitroGLYCERIN (NITROSTAT) 0.[address] 0.4 mg under the tongue every 5 minutes as needed for Chest Pain. ??? pantoprazole (PROTONIX) 40 mg tablet Take 40 mg by mouth daily. ??? rosuvastatin (CRESTOR) 20 mg tablet Take 1 Tab by mouth daily. 30 Tab 3 Allergies Allergies Allergen Reactions ??? Lisinopril (Bulk) Cough ??? Thallium-201 cardiac episode Objective/Physical Exam: Vital Signs: BP 105/65 Pulse 73 Temp(Src) 37 ??C (98.6 ??F) (Tympanic) Resp 18 Ht 179.1 cm (70.5) Wt 109.544 kg (241 lb 8 oz) BMI 34.15 kg/m2 SpO2 98% Temp: [36.2 ??C (97.2 ??F)-37 ??C (98.6 ??F)] , Pulse: [73] , Resp: [18] , BP: (100-105)/(65-66) , SpO2: [98 %] Wt Readings from Last 3 Encounters: 02/21/14 109.544 kg (241 lb 8 oz) 02/14/14 107.14 kg (236 lb 3.2 oz) Physical exam: GEN: NAD HEENT: MMM, oropharynx clear, PERRL, nonicteric sclera, no cervical LAD PULM: CTAB, nl WOB CV: RRR, no MGRs, no JVD, LE pulses 2+ and = simona, UE pulses 2+ = simona ABD: Soft, nontender, +BS : no boucher EXT: no clubbing, cyanosis, or pitting edema SKIN: no rashes, skin warm and dry NEURO: A&Ox3 CN 2-12 grossly intact PSYCH: nl affect, appropriately responds to questions Pressure Ulcer Present on admission? No Labs: Imaging: WBC/Hgb/Hct/Plts: 10.88/14.3/41.9/189 (02/22 1908) BUN/Cr/glu/ALT/AST/amyl/lip: 8/0.72/--/--/--/--/-- (02/22 1908) Na/K/Cl/CO2: 143/3.9/106/25 (02/22 1908) CXR at OSH negative. Cardiac Markers Recent Labs 02/21/141907 CK 38 MB <0.22 TROPONINI <0.034 EKG: No ischemic changes noted. Assessment: 48 y.o. male who presented with CC chest pain and admitted with unstable angina. Plan: Unstable angina: -Cycle cardiac biomakers -heparin gtt -plavix 75mg daily -Monitor on telemetry -Aspirin 81mg -Beta blockade -statin -Nitro/ Morphine prn -Stress test if biomarkers remain negative. Hyperlipidemia / CAD: - Statin Diabetes, type 2: Good control with HbA1c 6.8% -Consistent carbohydrate diet -FS before meals and bedtime -SSI, Consider scheduling Aspart and adding Lantus -Diabetes education before D/C Hypertension: Goal BP: <140/90 -Diltiazem -Metoprolol -Imdur Tobacco dependence: 100 pack-years. Patient is ready to quit and has not smoked since his discharge1 week ago. -NRT offered DVT PPX Indicated: yes, heparin gtt FEN: Discharge Plan: - fluids: no - electrolytes: stable - diet: cardiac diet Need for PT: no Anticipated Discharge: Home or self care Code Status: FULL Endy Mack MD 02/21/2014 19:48 PGY-3, pgr 0165 Cards Team: 2 CHECK TREATMENT TEAM FOR CURRENT COVERING PHYSICIAN ATTENDING Attestation statement: I saw and examined the patient with the resident. I agree with the findings and plan of care documented in the resident's note. Jez Ortiz Jr., MD electrical tech/project manager [facility] Pager [phone] documented in this encounter Procedure Notes * Eagle Fernando RN - 02/23/2014 0822 EDTProcedure(s): EXERCISE TOLERANCE TEST Preliminary Stress Lab Report-Regular ETT Date: 02/23/2014 Time: 8:56 Procedure: Patient exercised for 6 minutes 51 seconds of Supa protocol to a heart rate of 101=59% MPHR. Blood pressure response to exercise was normal. Reason for stopping exercise was due to sob, chest pain and fatigue and pt jumped off treadmill. Symptoms resolved with rest The EKG had negative changes to less than 85% MPHR. Arrhythmias were absent. EAGLE FERNANDO RN 02/23/2014 8:56 documented in this encounter Miscellaneous Notes * Plan of Care - Yessenia Isabel RN - 02/23/2014 1532 EDT Problem: DISCHARGE PLANNING Goal: Patient???s Continuum Of Care Needs Are Met Outcome: Met This Shift D; Discharged per MD order A: Reviewed dc instructions, medications,prescriptions and appointments. Removed IV and dc'd tele. R:States understanding.Ambulate off unit. . * Plan of Care - Yessenia Isabel RN - 02/23/2014 1145 EDT Problem: KNOWLEDGE DEFICIT Goal: Patient/S.O. Demonstrates Understanding Demonstrates understanding of: - Disease Process - Treatment Plan - Medications - Discharge Instructions Outcome: Ongoing D: Exercise stress test completed this morning A: Reviewed plan of care related to possible discharge this afternoon pending test results. R; States understanding. Denies chest discomfort. Denies pain. * Plan of Care - Darcy Pompa RN - 02/23/2014 0123 EDT Problem: CIRCULATORY STATUS Goal: Patient Has Stable Vital Signs And Fluid Balance Outcome: Ongoing D: Pt denies any CP tonight. BP 90/44 Pulse 73 Temp(Src) 36.1 ??C (97 ??F) (Tympanic) Resp 20. SpO2 97%. Amb to BR independently. A: Tele shows SR, reinforced plan for probable ETT in am. R: VSS, N/C, continuing to monitor. * Plan of Care - Yessenia Isabel RN - 02/22/2014 1323 EDT Problem: KNOWLEDGE DEFICIT Goal: Patient/S.O. Demonstrates Understanding Demonstrates understanding of: - Disease Process - Treatment Plan - Medications - Discharge Instructions Intervention: Provide teaching via preferred learning method D:Admit with persistent USAP A:Discussed medications, procedures and plan of care. R: States understanding. Continue to keep informed. * Plan of Care - Darcy Pompa RN - 02/22/2014 0046 EDT Problem: CIRCULATORY STATUS Goal: Patient Has Stable Vital Signs And Fluid Balance Outcome: Ongoing D: Pt adm last evening. C/o 2/10 CP at 2200. MD Mack aware. BP 113/68 Pulse 73 Temp(Src) 35.8 ??C (96.4 ??F) (Tympanic) Resp 20. SpO2 98% on 2L. A: One SL ntg given to pt with pain down to 1/10 and then pt declining any further meds. No EKG needed per Dr. Mack. Reinforced NPO after midnight for possible stress test vs. Cath in am. R: Continuing to monitor. documented in this encounter Plan of Treatment Scheduled Referrals Name Type Priority Associated Diagnoses Order Schedule AMB CONS/FOLLOW UP CARDIAC REHABILITATION Outpatient Referral Routine S/P coronary artery stent placement Chest pain Ordered: 02/22/2014 AMB CONS/FOLLOW UP CARDIOLOGY Outpatient Referral Routine S/P coronary artery stent placement Chest pain Ordered: 02/23/2014 documented as of this encounter Procedures Procedure Name Priority Date/Time Associated Diagnosis Comments STRESS TEST - SCANNED 03/09/2014 16:14 EDT ECG REPORT - SCANNED 03/01/2014 15:54 EDT ECG REPORT - SCANNED 02/27/2014 12:40 EDT GLUCOSE, GLUCOMETER Routine 02/23/2014 1 1:41 EDT GLUCOSE, GLUCOMETER Routine 02/23/2014 9 :28 EDT EXERCISE TOLERANCE TEST WAVEFORM 02/23/2014 8:44 EDT EXERCISE TOLERANCE TEST 02/23/2014 7:30 EDT GLUCOSE, GLUCOMETER Routine 02/23/2014 6 :40 EDT PTT Routine 02/23/2014 5:33 EDT COMPLETE BLOOD COUNT Routine 02/23/2014 5:33 EDT BUN Routine 02/23/2014 5:33 EDT CREATININE Routine 02/23/2014 5:33 EDT ELECTROLYTES Routine 02/23/2014 5:33 EDT GLUCOSE, GLUCOMETER Routine 02/22/2014 2 0:43 EDT INPATIENT ADD-ON Routine 02/22/2014 19:2 0 EDT TROPONIN I Routine 02/22/2014 17:21 EDT CK MB WITH TOTAL CK Routine 02/22/2014 1 7:21 EDT GLUCOSE, GLUCOMETER Routine 02/22/2014 1 6:32 EDT GLUCOSE, GLUCOMETER Routine 02/22/2014 1 1:15 EDT TROPONIN I Routine 02/22/2014 10:04 EDT CK MB WITH TOTAL CK Routine 02/22/2014 1 0:04 EDT GLUCOSE, GLUCOMETER Routine 02/22/2014 6 :30 EDT PTT Routine 02/22/2014 6:19 EDT COMPLETE BLOOD COUNT Routine 02/22/2014 6:19 EDT BUN Routine 02/22/2014 6:19 EDT CREATININE Routine 02/22/2014 6:19 EDT ELECTROLYTES Routine 02/22/2014 6:19 EDT TROPONIN I Routine 02/22/2014 2:01 EDT PTT Routine 02/22/2014 2:01 EDT CK MB WITH TOTAL CK Routine 02/22/2014 2 :01 EDT GLUCOSE, GLUCOMETER Routine 02/21/2014 2 2:06 EDT PTT Routine 02/21/2014 21:36 EDT GLUCOSE, GLUCOMETER Routine 02/21/2014 1 9:54 EDT TROPONIN I STAT 02/21/2014 19:08 EDT COMPLETE BLOOD COUNT STAT 02/21/2014 19:08 EDT BUN STAT 02/21/2014 19:08 EDT CREATININE STAT 02/21/2014 19:08 EDT CK MB WITH TOTAL CK STAT 02/21/2014 1 9:08 EDT ELECTROLYTES STAT 02/21/2014 19:08 EDT EKG 12-LEAD STAT 02/21/2014 18:59 EDT documented in this encounter Results * STRESS TEST - SCANNED (03/09/2014 16:14 EDT) Anatomical Region Laterality Modality Other 03/09/2014 16:1 4 EDT Scan 2 Online Tutor IMG OTHER IMAGING O RDERABLES * ECG REPORT - SCANNED (03/01/2014 15:54 EDT) 03/01/2014 15:5 4 EDT Scan 2 Online Tutor PROCEDURE/MINOR GUSTAVO GICAL ORDERABLES * ECG REPORT - SCANNED (02/27/2014 12:40 EDT) 02/27/2014 12:4 0 EDT Scan 2 Online Tutor PROCEDURE/MINOR GUSTAVO GICAL ORDERABLES * (ABNORMAL) GLUCOSE, GLUCOMETER (02/23/2014 11:41 EDT) Glucose, Fingerstick 185(H) 70 - 100 mg/dl [facility] Calculation Clerk ID [id number] [facility] Comment:Test Performed by [facility] 02/23/2014 11:4 1 EDT 02/23/2014 11:42 EDT Jez Ortiz MD CHEMISTRY & BLOOD GA S ORDERABLES Performing Organization Address [facility] de Phone Number [facility] [address] [place] [address] * (ABNORMAL) GLUCOSE, GLUCOMETER (02/23/2014 9:28 EDT) Glucose, Fingerstick 153(H) 70 - 100 mg/dl [facility] Calculation Clerk ID [id number] [facility] Comment:Test Performed by [facility] 02/23/2014 9:28 EDT 02/23/2014 9:29 EDT Rafy Lopez MD CHEMISTRY & BLOOD GAS ORDERABLES Performing Organization Address [facility] de Phone Number [facility] [address] [place] [address] * EXERCISE TOLERANCE TEST WAVEFORM (02/23/2014 8:44 EDT) Anatomical Region Laterality Modality Other 02/23/2014 8:44 EDT Narrative 02/23/2014 8:46 EDT For report of this Waveform, see associated Image Study. ?[facility] ? Test Date: ?2014-02-23 Pat Name: ? ROMEO PATELONEY ?Department: ?? STRESS ? Room: ? Gender: ? 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 Requested By: ROSSANA Tenorio Order Number: [id number] ?Tiarra OG: ? Interpretive Statements Procedure Note 02/23/2014 For report of this Waveform, see associated Image Study. [facility] Stress Test Date: 2014-02-23 Pat Name: ROMEO COELHO Department: STRESS Room: Gender: M Utility Plant Operative: [id number] : 1965 Requested By: ROSSANA Tenorio Order Number: [id number] Tiarra MD: Interpretive Statements Jermaine Tracy MD CARDIAC SERVICES OR DERABLES * EXERCISE TOLERANCE TEST (02/23/2014 7:30 EDT) Anatomical Region Laterality Modality Other 02/23/2014 7:30 EDT Narrative 03/03/2014 13:21 EDT *[facility]* [address] [place] [address] *Interpreting Group:* *[facility]* [address] [place] [address] Stress Electrocardiography Supa protocol *PATIENT PRESENTATION* Height: ? 179.1cm (70.5in ) Blood Pressure: Weight: ? 109.1kg (240lb ) BSA: ?2.37m^2 ?? Ordering physician: Jermaine Tracy Summary: 1. Stress ECG conclusions: The stress ECG is negative to less than 85% MPHR. 2. Stress: The target heart rate was not achieved. The heart rate response to ?? stress is blunted by beta blockers. There is a normal resting blood pressure ?? with an appropriate response to stress. 1 out of 10 stress-induced chest pain ?? which resolved spontaneously. Exercise capacity is mildly diminished for age. CAD likelihood: ??Pre test likelihood of CAD: 100%. Post test likelihood of CAD: 100%. Indication: ?? 786.50 Chest Pain, Unspecified. History: ??48 yo male with known CAD. Pt has been having recurrent chest pain at rest relieved by NTG since Thursday until day of admission when chest pain became unremitting. Pt went to [facility] where EKG negative and troponin negative and reansferred to [facility]. Troponin negative here. Pt is S/P PCI at [facility] May 2012 and Jul 2013. Pt admitted 02/15 for unstable angina and received to [facility] ot LAD X2. No chest pain or SOB presently. ??Patient's presenting symptoms: atypical angina. ??Risk factors: ??Current tobacco use. Hypertension. Diabetes mellitus. Obesity. Dyslipidemia. ??Medications: ??Aspirin. Beta blockers. Calcium channel blockers. Lasix. Nitrates. Oral diabetic agent. Plavix. Statin therapy. Protocol: ??Supa protocol. Labs, prior tests, procedures, and surgery: Echocardiography (16-Feb-2014). ? Abnormal. Stress protocol: + +---+ +------+ + + Stage ? HR BP (mmHg) ?? ST/T ?? Rhythm ? Symptoms ? + +---+ +------+ + + Baseline supine ? 59 118/76 (90) Normal NSR ? None ? + +---+ +------+ + + Baseline standing ? 66 110/80 (90) ? + +---+ +------+ + + Stage I; 1.7mph, ? 86 130/74 (93) ? 10degrees; 3 min ? + +---+ +------+ + + Stage II; 2.5mph, ? 92 132/80 (97) ? 12degrees; 3 min ? + +---+ +------+ + + Stage III; 3.4mph, ?? 101 ? Normal Sinus tach 1 out of 10 chest ? 14degrees; 3 min ? discomfort, moderate ? dyspnea, fatigue, pt ? jumped off TM ? + +---+ +------+ + + Immediate post stress 97 ? + +---+ +------+ + + Recovery; 1 min ? 81 130/70 (90) ? + +---+ +------+ + + Recovery; 3 min ? 72 122/68 (86) ? Subsiding, .05/10 ? chest discomfort ? + +---+ +------+ + + Recovery; 6 min ? 68 118/74 (89) Normal NSR ? None ? + +---+ +------+ + + Stress results: ?? Maximal heart rate during stress was 101bpm (58% of maximal predicted heart rate). The maximal predicted heart rate was 174bpm. The target heart rate was not achieved. The heart rate response to stress is blunted by beta blockers. There is a normal resting blood pressure with an appropriate response to stress. The rate-pressure product for the peak heart rate and blood pressure was 44024yu Hg/min. ??1 out of 10 stress-induced chest pain which resolved spontaneously. The patient experienced moderate dyspnea in response to stress. Exercise capacity is mildly diminished for age. Stress ECG: ?? The stress ECG is negative to less than 85% MPHR. ?? Study data: ?? Study status: ??Routine. ??Consent: ??The risks, benefits, and alternatives to the procedure were explained to the patient and informed consent was obtained. ??Procedure: ??Initial setup. A baseline ECG was recorded. Surface ECG leads and manual cuff blood pressure measurements were monitored. Heart sounds: Normal. Lung sounds: Normal. Treadmill exercise testing was performed using the Supa protocol. The patient exercised for 6 min 51 sec, to protocol stage 3, to a maximal work rate of 8.1mets. Exercise was terminated due to moderate dyspnea and fatigue and patient jumped off treadmill. ??Study completion: ??The patient tolerated the procedure well and was discharged from the lab. ??Discharge: ??The patient left the laboratory in stable condition. Birthdate: ??Patient birthdate: 1965. ??Sex: ??Gender: male. ??Study date: Study date: 23-Feb-2014. Signature Documentation: ?? The Stress ECG portion of this study was interpreted by Dr. Keo Steele. Electronically signed by Keo Mcginnis MD 03/03/2014 13:21 Procedure Note 03/03/2014 *[facility]* [address] [place] [address] *Interpreting Group:* *[facility]* [address] [place] [address] Stress Electrocardiography Supa protocol *PATIENT PRESENTATION* Height: 179.1cm (70.5in ) Blood Pressure: Weight: 109.1kg (240lb ) BSA: 2.37m^2 Ordering physician: Jermaine Tracy Summary: 1. Stress ECG conclusions: The stress ECG is negative to less than 85%MPHR. 2. Stress: The target heart rate was not achieved. The heart rate responseto stress is blunted by beta blockers. There is a normal resting bloodpressure with an appropriate response to stress. 1 out of 10 stress-inducedchest pain which resolved spontaneously. Exercise capacity is mildly diminishedfor age. CAD likelihood: Pre test likelihood of CAD: 100%. Post test likelihood ofCAD: 100%. Indication: 786.50 Chest Pain, Unspecified. History: 48 yo male with known CAD. Pt has been having recurrent chestpain at rest relieved by NTG since Thursday until day of admission when chest painbecame unremitting. Pt went to [facility] where EKG negative andtroponin negative and reansferred to [facility]. Troponin negative here. Pt is S/P PCI at [facility] May 2012 and Jul 2013. Pt admitted 02/15 for unstable angina and received to [facility] ot LAD X2. No chest pain or SOB presently. Patient'spresenting symptoms: atypical angina. Risk factors: Current tobacco use.Hypertension. Diabetes mellitus. Obesity. Dyslipidemia. Medications: Aspirin. Betablockers. Calcium channel blockers. Lasix. Nitrates. Oral diabetic agent. Plavix.Statin therapy. Protocol: Supa protocol. Labs, prior tests, procedures, and surgery: Echocardiography (16-Feb-2014). Abnormal. Stress protocol: + +---+ +------+ + + Stage HR BP (mmHg) ST/T Rhythm Symptoms + +---+ +------+ + + Baseline supine 59 118/76 (90) Normal NSR None + +---+ +------+ + + Baseline standing 66 110/80 (90) + +---+ +------+ + + Stage I; 1.7mph, 86 130/74 (93) 10degrees; 3 min + +---+ +------+ + + Stage II; 2.5mph, 92 132/80 (97) 12degrees; 3 min + +---+ +------+ + + Stage III; 3.4mph, 101 Normal Sinus tach 1 out of 10 chest 14degrees; 3 min discomfort,moderate dyspnea, fatigue,pt jumped off TM + +---+ +------+ + + Immediate post stress 97 + +---+ +------+ + + Recovery; 1 min 81 130/70 (90) + +---+ +------+ + + Recovery; 3 min 72 122/68 (86) Subsiding, .05/10 chest discomfort + +---+ +------+ + + Recovery; 6 min 68 118/74 (89) Normal NSR None + +---+ +------+ + + Stress results: Maximal heart rate during stress was 101bpm (58% ofmaximal predicted heart rate). The maximal predicted heart rate was 174bpm. Thetarget heart rate was not achieved. The heart rate response to stress is bluntedby beta blockers. There is a normal resting blood pressure with anappropriate response to stress. The rate-pressure product for the peak heart rate andblood pressure was 90160cj Hg/min. 1 out of 10 stress-induced chest pain which resolved spontaneously. The patient experienced moderate dyspnea inresponse to stress. Exercise capacity is mildly diminished for age. Stress ECG: The stress ECG is negative to less than 85% MPHR. Study data: Study status: Routine. Consent: The risks, benefits, and alternatives to the procedure were explained to the patient and informedconsent was obtained. Procedure: Initial setup. A baseline ECG was recorded.Surface ECG leads and manual cuff blood pressure measurements were monitored.Heart sounds: Normal. Lung sounds: Normal. Treadmill exercise testing wasperformed using the Supa protocol. The patient exercised for 6 min 51 sec, toprotocol stage 3, to a maximal work rate of 8.1mets. Exercise was terminated due to moderate dyspnea and fatigue and patient jumped off treadmill. Study completion: The patient tolerated the procedure well and was dischargedfrom the lab. Discharge: The patient left the laboratory in stable condition. Birthdate: Patient birthdate: 1965. Sex: Gender: male. Studydate: Study date: 23-Feb-2014. Signature Documentation: The Stress ECG portion of this study wasinterpreted by Dr. Keo Steele. Electronically signed by Koe Mcginnis MD 03/03/2014 13:21 Jermaine Tracy MD CARDIAC SERVICES OR DERABLES * (ABNORMAL) GLUCOSE, GLUCOMETER (02/23/2014 6:40 EDT) Glucose, Fingerstick 137(H) 70 - 100 mg/dl [facility] Calculation Clerk ID [id number] [facility] Comment:Test Performed by [facility] 02/23/2014 6:40 EDT 02/23/2014 6:44 EDT Rafy Lopez MD CHEMISTRY & BLOOD GAS ORDERABLES [facility] [address] [place] [address] * HEMAGRAM (02/23/2014 5:33 EDT) WBC 8.20 4.0 - 10.4 K/cmm [facility] RBC 5.15 4.36 - 5.78 M/cmm [facility] Hemoglobin 15.5 13.8 - 17.3 gm/dl [facility] HCT 44.4 39.5 - 50.2 % [facility] MCV 86 81 - 95 fl [facility] MCH 30.0 27.6 - 33.0 pg [facility] MCHC 34.8 32.8 - 36.4 gm/dl [facility] PLT 180 141 - 320 K/cmm [facility] RDW-CV 14.0 11.8 - 14.1 % [facility] 02/23/2014 5:33 EDT 02/23/2014 5:45 EDT Endy Mack MD HEMATOLOGY & PF4 ORD ERABLES Performing Organization Address City/[facility] Co de Phone Number [facility] [address] [place] [address] * CREATININE (02/23/2014 5:33 EDT) Creatinine 0.76 0.66 - 1.25 mg/dl [facility] GFR, Calculated >60 >60 ml/min/1.7 3m2 [facility] 02/23/2014 5:33 EDT 02/23/2014 5:45 EDT Endy Mack MD CHEMISTRY & BLOOD GA S ORDERABLES Performing Organization Address City/[facility] Co de Phone Number [facility] [address] [place] [address] * (ABNORMAL) BUN (02/23/2014 5:33 EDT) BUN 9(L) 10 - 26 mg/dl [facility] 02/23/2014 5:33 EDT 02/23/2014 5:45 EDT Endy Mack MD CHEMISTRY & BLOOD GA S ORDERABLES Performing Organization Address [facility]/ZIP Co de Phone Number [facility] [address] [place] [address] * ELECTROLYTES (02/23/2014 5:33 EDT) Sodium 141 136 - 145 mEq/L [facility] Potassium 4.0 3.5 - 5.0 mEq/L [facility] Chloride 106 96 - 110 mEq/L [facility] CO2 24 24 - 32 mEq/L [facility] 02/23/2014 5:33 EDT 02/23/2014 5:45 EDT Endy Mack MD CHEMISTRY & BLOOD GA S ORDERABLES Performing Organization Address [facility] Co de Phone Number [facility] [address] [place] [address] * (ABNORMAL) PTT (02/23/2014 5:33 EDT) PTT 73(H) 26 - 37 secs [facility] Comment:Therapeutic Heparin range: 65-100 seconds Blood specimen (specimen) 02/23/2014 5:33 EDT 02/23/2014 5:45 EDT Jermaine Tracy MD HEMATOLOGY & PF4 OR DERABLES Performing Organization Address [facility] de Phone Number [facility] [address] [place] [address] * (ABNORMAL) GLUCOSE, GLUCOMETER (02/22/2014 20:43 EDT) Glucose, Fingerstick 110(H) 70 - 100 mg/dl [facility] Calculation Clerk ID [id number] [facility] Comment:Test Performed by [facility] 02/22/2014 20:4 3 EDT 02/22/2014 20:49 EDT Rafy Lopez MD CHEMISTRY & BLOOD GAS ORDERABLES Performing Organization Address [facility] Co de Phone Number [facility] [address] [place] [address] * INPATIENT ADD-ON (02/22/2014 19:20 EDT) Tests to be added PLEASE ADD JUAN DIEGO CARTAGENA TO PREVIOUS TESTING [facility] Comment: THANK YOU CKMB Number for problems [id number] [facility] Accession number [id number] [facility] 02/22/2014 19:2 0 EDT 02/22/2014 19:23 EDT Rafy Lopez MD HEMATOLOGY & PF4 ORDERABLES Performing Organization Address [facility] de Phone Number [facility] [address] [place] [address] * CK MB WITH TOTAL CK (02/22/2014 17:21 EDT) CK 40 0 - 250 U/L [facility] MB <0.22 <4.21 ng/ml [facility] 02/22/2014 17:2 1 EDT 02/22/2014 17:32 EDT Jermaine Tracy MD CHEMISTRY & BLOOD G ORDERABLES Performing Organization Address [facility] de Phone Number [facility] [address] [place] [address] * TROPONIN I (02/22/2014 17:21 EDT) Troponin I (ng/mL) <0.034 <0.034 ng/ml [facility] Blood specimen (specimen) 02/22/2014 17:21 EDT 02/22/2014 17:32 EDT Jermaine Tracy MD CHEMISTRY & BLOOD G ORDERABLES Performing Organization Address [facility] de Phone Number [facility] [address] [place] [address] * (ABNORMAL) GLUCOSE, GLUCOMETER (02/22/2014 16:32 EDT) Glucose, Fingerstick 144(H) 70 - 100 mg/dl [facility] Calculation Clerk ID [id number] [facility] Comment:[facility] 02/22/2014 16:3 2 EDT 02/22/2014 16:36 EDT Rafy Lopez MD CHEMISTRY & BLOOD GAS ORDERABLES Performing Organization Address [facility] de Phone Number [facility] [address] [place] [address] * (ABNORMAL) GLUCOSE, GLUCOMETER (02/22/2014 11:15 EDT) Glucose, Fingerstick 102(H) 70 - 100 mg/dl [facility] Calculation Clerk ID [id number] [facility] Comment:Test Performed by [facility] 02/22/2014 11:1 5 EDT 02/22/2014 11:23 EDT Rafy Lopez MD CHEMISTRY & BLOOD GAS ORDERABLES Performing Organization Address [facility] de Phone Number [facility] [address] [place] [address] * CK MB WITH TOTAL CK (02/22/2014 10:04 EDT) CK 53 0 - 250 U/L [facility] Comment: Slight hemolysis Results may be affected due to hemolysis. MB <0.22 <4.21 ng/ml [facility] Comment: Slight hemolysis Results may be affected due to hemolysis. Blood specimen (specimen) 02/22/2014 10:04 EDT 02/22/2014 10:22 EDT Jermaine Tracy MD CHEMISTRY & BLOOD G ORDERABLES Performing Organization Address [facility] de Phone Number [facility] [address] [place] [address] * TROPONIN I (02/22/2014 10:04 EDT) Troponin I (ng/mL) <0.034 <0.034 ng/ml [facility] Comment: Slight hemolysis Results may be affected due to hemolysis. Blood specimen (specimen) 02/22/2014 10:04 EDT 02/22/2014 10:22 EDT Jermaine Tracy MD CHEMISTRY & BLOOD G ORDERABLES Performing Organization Address [facility]/ZIP Co de Phone Number [facility] [address] [place] [address] * (ABNORMAL) GLUCOSE, GLUCOMETER (02/22/2014 6:30 EDT) Glucose, Fingerstick 131(H) 70 - 100 mg/dl [facility] Calculation Clerk ID [id number] [facility] Comment:Test Performed by [facility] 02/22/2014 6:30 EDT 02/22/2014 6:45 EDT Rafy Lopez MD CHEMISTRY & BLOOD GAS ORDERABLES Performing Organization Address [facility] de Phone Number [facility] [address] [place] [address] * HEMAGRAM (02/22/2014 6:19 EDT) WBC 8.93 4.0 - 10.4 K/cmm [facility] RBC 4.94 4.36 - 5.78 M/cmm [facility] Hemoglobin 14.6 13.8 - 17.3 gm/dl [facility] HCT 42.7 39.5 - 50.2 % [facility] MCV 86 81 - 95 fl [facility] MCH 29.6 27.6 - 33.0 pg [facility] MCHC 34.3 32.8 - 36.4 gm/dl [facility] PLT 177 141 - 320 K/cmm [facility] RDW-CV 14.1 11.8 - 14.1 % [facility] 02/22/2014 6:19 EDT 02/22/2014 6:41 EDT Endy Mack MD HEMATOLOGY & PF4 ORD ERABLES Performing Organization Address [facility] Co de Phone Number [facility] [address] [place] [address] * CREATININE (02/22/2014 6:19 EDT) Creatinine 0.80 0.66 - 1.25 mg/dl [facility] GFR, Calculated >60 >60 ml/min/1.7 3m2 [facility] 02/22/2014 6:19 EDT 02/22/2014 6:41 EDT Endy Mack MD CHEMISTRY & BLOOD GA S ORDERABLES Performing Organization Address [facility] de Phone Number [facility] [address] [place] [address] * (ABNORMAL) BUN (02/22/2014 6:19 EDT) BUN 9(L) 10 - 26 mg/dl [facility] 02/22/2014 6:19 EDT 02/22/2014 6:41 EDT Endy Mack MD CHEMISTRY & BLOOD GA S ORDERABLES Performing Organization Address [facility] de Phone Number [facility] [address] [place] [address] * ELECTROLYTES (02/22/2014 6:19 EDT) Sodium 143 136 - 145 mEq/L [facility] Potassium 4.0 3.5 - 5.0 mEq/L [facility] Chloride 105 96 - 110 mEq/L [facility] CO2 28 24 - 32 mEq/L [facility] 02/22/2014 6:19 EDT 02/22/2014 6:41 EDT Endy Mack MD CHEMISTRY & BLOOD GA S ORDERABLES Performing Organization Address [facility] de Phone Number [facility] [address] [place] [address] * (ABNORMAL) PTT (02/22/2014 6:19 EDT) PTT 70(H) 26 - 37 secs [facility] Comment:Therapeutic Heparin range: 65-100 seconds Blood specimen (specimen) 02/22/2014 6:19 EDT 02/22/2014 6:41 EDT Jermaine Tracy MD HEMATOLOGY & PF4 OR DERABLES Performing Organization Address [facility]/ZIP Co de Phone Number [facility] [address] [place] [address] * CK MB WITH TOTAL CK (02/22/2014 2:01 EDT) Pathologist [facility] CK 36 0 - 250 U/L [facility] MB <0.22 <4.21 ng/ml [facility] Blood specimen (specimen) 02/22/2014 2:01 EDT 02/22/2014 2:06 EDT Jermaine Tracy MD CHEMISTRY & BLOOD G ORDERABLES Performing Organization Address [facility] de Phone Number [facility] [address] [place] [address] * (ABNORMAL) PTT (02/22/2014 2:01 EDT) [facility] PTT 71(H) 26 - 37 secs [facility] Comment:Therapeutic Heparin range: 65-100 seconds Blood specimen (specimen) 02/22/2014 2:01 EDT 02/22/2014 2:06 EDT Jermaine Tracy MD HEMATOLOGY & PF4 OR DERABLES Performing Organization Address [facility] de Phone Number [facility] [address] [place] [address] * TROPONIN I (02/22/2014 2:01 EDT) [facility] Troponin I (ng/mL) <0.034 <0.034 ng/ml [facility] Blood specimen (specimen) 02/22/2014 2:01 EDT 02/22/2014 2:06 EDT Jermaine Tracy MD CHEMISTRY & BLOOD G ORDERABLES Performing Organization Address [facility] de Phone Number [facility] [address] [place] [address] * GLUCOSE, GLUCOMETER (02/21/2014 22:06 EDT) Pathologist [facility] Glucose, Fingerstick 86 70 - 100 mg/dl [facility] Calculation Clerk ID [id number] [facility] Comment:Test Performed by [facility] 02/21/2014 22:0 6 EDT 02/21/2014 22:19 EDT Rafy Lopez MD CHEMISTRY & BLOOD GAS ORDERABLES Performing Organization Address [facility] de Phone Number [facility] [address] [place] [address] * (ABNORMAL) PTT (02/21/2014 21:36 EDT) PTT 64(H) 26 - 37 secs [facility] Comment:Therapeutic Heparin range: 65-100 seconds Blood specimen (specimen) 02/21/2014 21:36 EDT 02/21/2014 21:43 EDT Jermaine Tracy MD HEMATOLOGY & PF4 OR DERABLES Performing Organization Address [facility] de Phone Number [facility] [address] [place] [address] * GLUCOSE, GLUCOMETER (02/21/2014 19:54 EDT) Glucose, Fingerstick 72 70 - 100 mg/dl [facility] Calculation Clerk ID [id number] [facility] Comment:Test Performed by [facility] 02/21/2014 19:5 4 EDT 02/21/2014 19:56 EDT Rafy Lopez MD CHEMISTRY & BLOOD GAS ORDERABLES Performing Organization Address [facility] de Phone Number [facility] [address] [place] [address] * CREATININE (02/21/2014 19:08 EDT) Creatinine 0.72 0.66 - 1.25 mg/dl [facility] GFR, Calculated >60 >60 ml/min/1.7 3m2 [facility] Blood specimen (specimen) 02/21/2014 19:08 EDT 02/21/2014 19:19 EDT Jermaine Tracy MD CHEMISTRY & BLOOD G ORDERABLES Performing Organization Address [facility] Co de Phone Number [facility] [address] [place] [address] * (ABNORMAL) BUN (02/21/2014 19:08 EDT) BUN 8(L) 10 - 26 mg/dl [facility] Blood specimen (specimen) 02/21/2014 19:08 EDT 02/21/2014 19:19 EDT Jermaine Tracy MD CHEMISTRY & BLOOD G ORDERABLES Performing Organization Address [facility] de Phone Number [facility] [address] [place] [address] * (ABNORMAL) HEMAGRAM (02/21/2014 19:08 EDT) WBC 10.88(H) 4.0 - 10.4 K/cmm [facility] RBC 4.87 4.36 - 5.78 M/cmm [facility] Hemoglobin 14.3 13.8 - 17.3 gm/dl [facility] HCT 41.9 39.5 - 50.2 % [facility] MCV 86 81 - 95 fl [facility] MCH 29.3 27.6 - 33.0 pg [facility] MCHC 34.1 32.8 - 36.4 gm/dl [facility] PLT 189 141 - 320 K/cmm [facility] RDW-CV 13.9 11.8 - 14.1 % [facility] Blood specimen (specimen) 02/21/2014 19:08 EDT 02/21/2014 19:19 EDT Jermaine Tracy MD HEMATOLOGY & PF4 OR DERABLES Performing Organization Address [facility] Co de Phone Number [facility] [address] [place] [address] * ELECTROLYTES (02/21/2014 19:08 EDT) Sodium 143 136 - 145 mEq/L [facility] Potassium 3.9 3.5 - 5.0 mEq/L [facility] Chloride 106 96 - 110 mEq/L [facility] CO2 25 24 - 32 mEq/L [facility] Blood specimen (specimen) 02/21/2014 19:08 EDT 02/21/2014 19:19 EDT Jermaine Tracy MD CHEMISTRY & BLOOD G ORDERABLES Performing Organization Address [facility] de Phone Number [facility] [address] [place] [address] * CK MB WITH TOTAL CK (02/21/2014 19:08 EDT) CK 38 0 - 250 U/L [facility] MB <0.22 <4.21 ng/ml [facility] Blood specimen (specimen) 02/21/2014 19:08 EDT 02/21/2014 19:19 EDT Jermaine Tracy MD CHEMISTRY & BLOOD G ORDERABLES Performing Organization Address [facility] de Phone Number [facility] [address] [place] [address] * TROPONIN I (02/21/2014 19:08 EDT) Troponin I (ng/mL) <0.034 <0.034 ng/ml [facility] Blood specimen (specimen) 02/21/2014 19:08 EDT 02/21/2014 19:19 EDT Jermaine Tracy MD CHEMISTRY & BLOOD G ORDERABLES Performing Organization Address [facility] Phone Number [facility] [address] [place] [address] * EKG 12-LEAD (02/21/2014 18:59 EDT) 02/21/2014 18:5 9 EDT Narrative [facility] EKG - 02/22/2014 16:34 EDT ?[facility] ? Test Date: ?2014-02-21 Pat Name: ? ROMEO COELHO ?Department: ?? [facility] ? Room: ? ME506 Gender: ? 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 [id number] : ?1965 ? Requested By: JERMAINE TRACY MD Order Number: [id number] ? Reading MD: ?? TUYET ADES MD ? Measurements Intervals ?[place] ? Rate: ? 63 ? P: ?10 NM: ? 155 ?QRS: ?15 QRSD: ? 101 ?T: ?29 QT: ? 390 ? QTc: ?400 ? Interpretive Statements SINUS RHYTHM Within Normal Limits Compared to ECG 02/15/2014 14:19:22 Sinus rhythm now present I reviewed the tracing and agreed or edited the report. Electronically Signed On 02-22-14 16:34:29 EDT by TUYET CASTRO MD. 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 ElectronicallySigned On 02-22-14 16:34:29 EDT by TUYET CASTRO MD. Jermaine Tracy MD CARDIAC ECG ORDERAB LES [facility] EKG documented in this encounter Visit Diagnoses Diagnosis Unstable angina ([facility])- Primary Intermediate coronary syndrome Chest pain Chest pain, unspecified S/P coronary artery stent placement Postsurgical percutaneous transluminal coronary angioplasty status CAD (coronary artery disease) Coronary atherosclerosis of unspecified type of vessel, pauma or graft CAD (coronary artery disease) Coronary atherosclerosis of unspecified type of vessel, pauma or graft documented in this encounter Administered Medications Inactive Administered Medications - up to 3 most recent administrations Medication Order MAR Action Action Date Dose Rate Site aspirin chewable tablet 81 mg 81 mg, oral, DAILY, First dose on Thu02/22/14 at 0900, Until Discontinued, Routine Given 02/23/2014 7:50 EDT 81 mg Given 02/22/2014 10:06 EDT 81 mg buPROPion (WELLBUTRIN) tablet 150 mg 150 mg, oral, 2 TIMES DAILY, First dose on Thu02/21/14 at 2100, Until Discontinued, Routine Given 02/23/2014 7:50 EDT 150 mg Given 02/22/2014 20:44 EDT 150 mg Given 02/22/2014 10:06 EDT 150 mg clopidogrel (PLAVIX) tablet 75 mg 75 mg, oral, DAILY, First dose on Thu02/22/14 at 0900, Until Discontinued, Routine Given 02/23/2014 7:50 EDT 75 mg Given 02/22/2014 10:07 EDT 75 mg cyclobenzaprine (FLEXERIL) tablet 10 mg 10 mg, oral, 2 TIMES DAILY PRN, Starting on Thu02/21/14 at 1943, Until Thu02/23/14 at 1747, Muscle Spasms, Routine Given 02/22/2014 13:48 EDT 10 mg DILTiazem (TIAZAC) ER capsule 240 mg 240 mg, oral, DAILY, First dose on Thu02/22/14 at 0900, Until Discontinued, Routine Given 02/23/2014 7:51 EDT 240 mg Given 02/22/2014 10:06 EDT 240 mg DULoxetine (CYMBALTA) capsule 60 mg 60 mg, oral, 2 TIMES DAILY, First dose on Thu02/21/14 at 2100, Until Discontinued, Routine Given 02/23/2014 7:51 EDT 60 mg Given 02/22/2014 20:44 EDT 60 mg Given 02/22/2014 10:06 EDT 60 mg gabapentin (NEURONTIN) capsule 300 mg 300 mg, oral, 3 TIMES DAILY, First dose on Thu02/21/14 at 2100, Until Discontinued, Routine Given 02/22/2014 20:46 EDT 30 0 mg Given 02/22/2014 15:03 EDT 300 mg Given 02/22/2014 10:06 EDT 300 mg heparin in 1/2 NS 25,000 unit/250 mL infusion 15 Units/kg/hr ? 88.3 kg Adjusted weight (rounded to 13.2 mL/hr), intravenous, CONTINUOUS, Starting on Thu02/21/14 at 1915, Until Thu02/23/14 at 1747, Routine Rate Documented 02/23/2014 7:54 EDT 15 Units/kg/hr 13.2 mL/hr Rate Documented 02/23/2014 0:15 EDT 14.949 Units/kg/hr 13. 2 mL/hr New Bag 02/23/2014 0:03 EDT 15 Units/kg/hr 13.2 mL/hr insulin aspart (NOVOLOG FLEXPEN) injection subcutaneous, 3 TIMES DAILY WITH MEALS, First dose on Thu02/22/14 at 0800, Until Discontinued, Routine Given 02/23/2014 11:47 EDT 4 Units Given 02/22/2014 17:30 EDT 3 Units isosorbide mononitrate (IMDUR) CR tablet 120 mg 120 mg, oral, DAILY, First dose on Thu02/22/14 at 0900, Until Discontinued, Routine Given 02/23/2014 7:52 EDT 120 mg Given 02/22/2014 10:06 EDT 120 mg magnesium oxide (MAG-OX) tablet 400 mg 400 mg, oral, 2 TIMES DAILY, First dose on Thu02/21/14 at 2100, Until Discontinued, Routine Given 02/23/2014 7:52 EDT 400 mg Given 02/22/2014 20:46 EDT 400 mg Given 02/22/2014 10:06 EDT 400 mg metoprolol (LOPRESSOR) tablet 100 mg 100 mg, oral, 2 TIMES DAILY, First dose on Thu02/21/14 at 2100, Until Discontinued, Routine Given 02/23/2014 7:53 EDT 100 mg Given 02/22/2014 20:47 EDT 100 mg Given 02/22/2014 10:06 EDT 100 mg nitroGLYCERIN (NITROSTAT) SL tablet 0.4 mg 0.4 mg, sublingual, EVERY 5 MIN PRN, Starting on Thu02/21/14 at 1943, Until Thu02/23/14 at 1747, Chest Pain, Routine Given 02/21/2014 22:08 EDT 0.4 mg nitroglycerin 400 mcg/ml in D5W 250 ml infusion 5 mcg/min (rounded to 0.8 mL/hr), intravenous, CONTINUOUS, Starting on Thu02/21/14 at 1915, Until Thu02/21/14 at 1941, Routine New Bag 02/21/2014 19:22 EDT 26.667 mcg/min 4 mL/hr pantoprazole (PROTONIX) tablet 40 mg 40 mg, oral, DAILY, First dose on Thu02/21/14 at 2015, Until Discontinued, Routine Given 02/23/2014 7:53 EDT 40 mg Given 02/22/2014 10:06 EDT 40 mg Given 02/21/2014 21:10 EDT 40 mg ranolazine (RANEXA) ER tablet 500 mg 500 mg, oral, 2 TIMES DAILY, 3 doses, First dose on Thu02/22/14 at 1215, Last dose on Thu02/23/14 at 0900, Routine Given 02/23/2014 7:02 EDT 500 mg Given 02/22/2014 20:47 EDT 500 mg Given 02/22/2014 13:45 EDT 500 mg rosuvastatin (CRESTOR) tablet 20 mg 20 mg, oral, DAILY, First dose on Thu02/21/14 at 2015, Until Discontinued, Routine Given 02/23/2014 7:53 EDT 20 mg Given 02/22/2014 10:09 EDT 20 mg Given 02/21/2014 21:10 EDT 20 mg documented in this encounter Active and Recently Administered Medications Times are shown in EDT. Scheduled Medication Order 02/21/2014 02/22/2014 02/23/2014 aspirin chewable tablet 81 mg (CANCELED) 81 mg, oral, DAILY, First dose on Thu02/22/14 at 0900, Until Discontinued, Routine 1006 (Given - Provider: Yessenia Isabel RN) 0750 (Given - Provider: Justin Vivar RN)0900 (Canceled Entry - Provider: Justin Vivar RN) buPROPion (WELLBUTRIN) tablet 150 mg (CANCELED) 150 mg, oral, 2 TIMES DAILY, First dose on Thu02/21/14 at 2100, Until Discontinued, Routine 2107 (Given - Provider: Darcy Pompa RN) 1006 (Given - Provider: Yessenia Isabel RN)2043 (Given - Provider: Darcy Pompa RN) 0750 (Given - Provider: Justin Vivar RN)0900 (Canceled Entry - Provider: Justin Vivar RN) clopidogrel (PLAVIX) tablet 75 mg (CANCELED) 75 mg, oral, DAILY, First dose on Thu02/22/14 at 0900, Until Discontinued, Routine 1007 (Given - Provider: Yessenia Isabel RN) 0750 (Given - Provider: Justin Vivar RN)0900 (Canceled Entry - Provider: Justin Vivar RN) DILTiazem (TIAZAC) ER capsule 240 mg (CANCELED) 240 mg, oral, DAILY, First dose on Thu02/22/14 at 0900, Until Discontinued, Routine 1006 (Given - Provider: Yessenia Isabel RN) 0751 (Given - Provider: Justin Vivar RN)0900 (Canceled Entry - Provider: Justin Vivar RN) DULoxetine (CYMBALTA) capsule 60 mg (CANCELED) 60 mg, oral, 2 TIMES DAILY, First dose on Thu02/21/14 at 2100, Until Discontinued, Routine 2107 (Given - Provider: Darcy Pompa RN) 1006 (Given - Provider: Yessenia Isabel RN)2044 (Given - Provider: Darcy Pompa RN) 0751 (Given - Provider: Justin Vivar RN)0900 (Canceled Entry - Provider: Justin Vivar RN) gabapentin (NEURONTIN) capsule 300 mg (CANCELED) 300 mg, oral, 3 TIMES DAILY, First dose on Thu02/21/14 at 2100, Until Discontinued, Routine 2108 (Given - Provider: Darcy Pompa RN) 1006 (Given - Provider: Yessenia Isabel RN)1503 (Given - Provider: Yessenia Isabel RN)2046 (Given - Provider: Darcy Pompa RN) 0900 (Canceled Entry - Provider: Justin Vivar RN)1533 (Not Given - Provider: Yessenia Isabel RN - Reason: Patient off unit) insulin aspart (NOVOLOG FLEXPEN) injection (CANCELED) subcutaneous, 3 TIMES DAILY WITH MEALS, First dose on Thu02/22/14 at 0800, Until Discontinued, Routine 1007 (Not Given - Provider: Yessenia Isabel RN - Reason: Order parameters not met)1313 (Not Given - Provider: Yessenia Isabel RN - Reason: Order parameters not met)1730 (Given - Provider: Jazmine Mcdowell RN) 0755 (Not Given - Provider: Justin Vivar RN - Reason: Order parameters not met)1147 (Given - Provider: Yessenia Isabel RN) isosorbide mononitrate (IMDUR) CR tablet 120 mg (CANCELED) 120 mg, oral, DAILY, First dose on Thu02/22/14 at 0900, Until Discontinued, Routine 100 (Given - Provider: Yessenia Isabel RN) 075 (Given - Provider: Justin Vivar RN)0900 (Canceled Entry - Provider: Justin Vivar RN) magnesium oxide (MAG-OX) tablet 400 mg (CANCELED) 400 mg, oral, 2 TIMES DAILY, First dose on Thu02/21/14 at 2100, Until Discontinued, Routine 2108 (Given - Provider: Darcy Pompa RN) 1006 (Given - Provider: Yessenia Isabel RN)2045 (Given - Provider: Darcy Pompa RN) 075 (Given - Provider: Justin Vivar RN)0900 (Canceled Entry - Provider: Justin Vivar RN) metoprolol (LOPRESSOR) tablet 100 mg (CANCELED) 100 mg, oral, 2 TIMES DAILY, First dose on Thu02/21/14 at 2100, Until Discontinued, Routine 2108 (Given - Provider: Darcy Pompa RN) 1006 (Given - Provider: Yessenia Isabel RN)2046 (Given - Provider: Darcy Pompa RN) 075 (Given - Provider: Justin Vivar RN)0900 (Canceled Entry - Provider: Justin Vivar RN) pantoprazole (PROTONIX) tablet 40 mg (CANCELED) 40 mg, oral, DAILY, First dose on Thu02/21/14 at 2014, Until Discontinued, Routine 2109 (Given - Provider: Darcy Pompa RN) 1006 (Given - Provider: Yessenia Isabel RN) 0753 (Given - Provider: Justin Vivar RN)0900 (Canceled Entry - Provider: Justin Vivar RN) ranolazine (RANEXA) ER tablet 500 mg (COMPLETED) 500 mg, oral, 2 TIMES DAILY, 3 doses, First dose on Thu02/22/14 at 1215, Last dose on Thu02/23/14 at 0900, Routine 1345 (Given - Provider: Yessenia Isabel RN)2047 (Given - Provider: Darcy Pompa RN) 0702 (Given - Provider: Darcy Pompa RN)0900 (Canceled Entry - Provider: Yessenia Isabel RN) rosuvastatin (CRESTOR) tablet 20 mg (CANCELED) 20 mg, oral, DAILY, First dose on Thu02/21/14 at 2015, Until Discontinued, Routine 2110 (Given - Provider: Darcy Pompa RN) 1009 (Given - Provider: Yessenia Isabel RN) 0753 (Given - Provider: Justin Vivar RN)0900 (Canceled Entry - Provider: Justin Vivar RN) Continuous Medication Order 02/21/2014 02/22/2014 02/23/2014 heparin in 08/25 NS 25,000 unit/250 mL infusion (CANCELED) 15 Units/kg/hr ? 88.3 kg Adjusted weight (rounded to 13.2 mL/hr), intravenous, CONTINUOUS, Starting on Thu02/21/14 at 1915, Until Thu02/23/14 at 1747, Routine 1923 (IV Resume - Provider: Mayank Oropeza)2002 (Rate Documented - Provider: Darcy Pompa RN)2036 (IV Resume - Provider: Darcy Pompa RN)2122 (Canceled Entry - Provider: Darcy Pompa RN)2318 (Rate Documented - Provider: Darcy Pompa RN) 0000 (Rate Documented - Provider: Darcy Pompa RN)0547 (New Bag - Provider: Darcy Pompa RN)1932 (Rate Documented - Provider: Darcy Pompa RN) 0003 (New Bag - Provider: Darcy Pompa RN)0015 (Rate Documented - Provider: Darcy Pompa RN)0754 (Rate Documented - Provider: Justin Vivar RN) nitroglycerin 400 mcg/ml in D5W 250 ml infusion (CANCELED) 5 mcg/min (rounded to 0.8 mL/hr), intravenous, CONTINUOUS, Starting on Thu02/21/14 at 1915, Until Thu02/21/14 at 1941, Routine 192 (New Bag - Provider: Mayank Oropeza)2001 (Completed - Provider: Darcy Pompa, VERO) PRN Medication Order 02/21/2014 02/22/2014 02/23/2014 cyclobenzaprine (FLEXERIL) tablet 10 mg (CANCELED) 10 mg, oral, 2 TIMES DAILY PRN, Starting on Thu02/21/14 at 1943, Until Martha 02/23/14 at 1747, Muscle Spasms, Routine 1348 (Given - Provider: Yessenia Isabel RN) nitroGLYCERIN (NITROSTAT) SL tablet 0.4 mg (CANCELED) 0.4 mg, sublingual, EVERY 5 MIN PRN, Starting on Thu02/21/14 at 1943, Until Martha 02/23/14 at 1747, Chest Pain, Routine 220 (Given - Provider: Darcy Pompa, VERO - Comment: 10/03 CP, no ekg needed per MD Mack) documented in this encounter Orders Medications Ordered That Nuno ht Not Have Been Administered Count Last Ordered Date First Ordered Date dextrose 50 % solution 12.5 g 1 02/21/2014 glucagon (human recombinant) injection 1 mg 1 02/21/2014 heparin 1,000 unit/mL inject ion 3,100 Units 1 02/21/2014 heparin 1,000 unit/mL inject ion 6,200 Units 1 02/21/2014 insulin aspart (NOVOLOG FLEXPEN) injection 1 02/21/2014 Diet Count Last Ordered Date First Orde red Date DISCHARGE DIET 1 02/22/2014 Nursing Count Last Ordered Date First Orde red Date DISCONTINUE SALINE LOCK/IV/PICC 4 ACTIVITY INSTRUCTIONS 3 02/22/2014 BATHING INSTRUCTIONS 1 02/22/2014 WOUND CARE INSTRUCTIONS 2 02/22/2014 VTE PHARMACOLOGIC PROPHYLAXI S CURRENTLY ORDERED OR ON ALTERNATIVE THER 1 02/21/2014 Admission Count Last Ordered Date First Orde red Date STATUS: OUTPATIENT OBSERVATION SERVICES 1 0 02/21/2014 Transfer Count Last Ordered Date First Orde red Date CHANGE ATTENDING TO: 1 02/23/2014 NOTIFY PPS OF DISCHARGE COMPLETE 1 02/24/20 14 Discharge Count Last Ordered Date First Orde red Date DISCHARGE PATIENT 1 02/23/2014 Legal Count Last Ordered Date First Orde red Date MISCELLANEOUS DISCHARGE INSTRUCTIONS 6 09/2013 documented in this encounter 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
[2024-04-30 13:58] LABS: BE (Venous) -3 mmol/L (-2-3); HCO3 (Venous) 23 mmol/L (23-28); O2 Sat (Venous) 96 %; TCO2 (Venous) 20 mmol/L (24-29); pCO2 (Venous) 41 mmHg (41-51); pH (Venous) 7.35 (7.31-7.41); pO2 (Venous) 78 mmHg
[2024-04-30 14:03] LABS: Abs Immature Grans 0.08 10^3/uL (0.0-0.06); Absolute Basophil Count 0.08 10^3/uL (0.0-0.2); Absolute Eosinophil Count 0.31 10^3/uL (0.0-0.7); Absolute Lymphocyte Count 2.87 10^3/uL (1.2-3.4); Absolute Monocyte Count 0.62 10^3/uL (0.1-0.8); Absolute Neutrophil Count 4.01 10^3/uL (1.2-6.7); Eosinophils % 3.9 %; HCT 43.5 % (40.0-50.0); HGB 14.8 g/dL (13.5-17.5); MCH 29.1 pg (27.0-33.0); MCV 86 fL (80-95); MPV 10.5 fL (8.0-11.0); Monocytes % 7.8 %; Neutrophils % 50.3 %; Platelet Count 177 10^3/uL (130-400); RBC 5.08 10^6/uL (4.36-5.78); RDW 13.1 % (11.8-14.1); RDW-SD 40.5 fL; WBC 7.97 10^3/uL (4.4-10.8)
[2024-04-30] MEDS: Lactated Ringers 1,000 ML 1000 ML IV (14:06)
[2024-04-30] MEDS: Normal Saline 1,000 ML 1000 ML IV (14:07)
[2024-04-30 14:10] LABS: Ammonia 45 umol/L (11-32)
[2024-04-30 14:12] LABS: PTT Activated 21.2 sec (23.6-32.8); Prothrombin Time 10.3 sec (9.1-11.1)
--- NOTE | 2024-04-30 14:18 | W.ED.GENAD ---
Discharge Plan Disposition Patient Disposition: Admit to [facility] Condition: Serious Discharge Details Chief Complaint: Chest Pain Clinical Impression: AMS (altered mental status), Hyperglycemia, Dehydration, Hyperammonemia Primary Care Provider: Coni Lim V ED Provider: Graham Garcia Home Meds and New Rx's Prescriptions: No Action ranolazine 500 mg tablet extended release 12 hr 500 mg PO BID Qty: 60 3RF prochlorperazine maleate 10 mg Tablet 10 mg PO Q8H PRN losartan 25 mg Tablet 12.5 mg PO DAILY gabapentin 300 mg Capsule 600 - 900 mg PO TID Rx Instructions: Take 2 caps QAM, 3 caps in afternoon, 3 caps QHS. duloxetine [Cymbalta] 60 mg Capsule,Delayed Release(Dr/Ec) 60 mg PO BID amlodipine 5 mg tablet 5 mg PO DAILY hydroxyzine pamoate 50 mg capsule 25 mg PO Q4H PRN Qty: 90 Patient Comments: 08/01/15 not recently Rx Instructions: prn headache pramipexole [Mirapex] 0.5 mg tablet 0.5 - 1 mg PO DIRECTED Rx Instructions: 1 tab qam 2 tab qhs aspirin [Adult Aspirin Regimen] 81 mg tablet,delayed release (DR/EC) 81 mg PO DAILY sucralfate [Carafate] 1 gram tablet 1 gm PO QACHS albuterol sulfate [ProAir HFA] 90 mcg/actuation HFA aerosol inhaler 2 puff IH Q4H simethicone [Gas Relief (simethicone)] 80 mg tablet,chewable 80 mg PO BID-QID PRN Patient Comments: not on pt list colchicine 0.6 mg tablet 0.6 mg PO BID Patient Comments: 08/01/15 not using docusate sodium [Colace] 100 mg capsule 100 mg PO BID PRN polyethylene glycol 3350 [Miralax] 17 gram/dose powder 17 gm PO DAILY PRN metoprolol succinate 200 mg tablet extended release 24 hr See Rx Instructions .ROUTE .COMPLEX Qty: 90 3RF Dose Instruction: TAKE ONE TABLET BY MOUTH DAILY AT 9AM Rx Instructions: TAKE ONE TABLET BY MOUTH DAILY AT 9AM glucagon 3 mg/actuation spray,non-aerosol 3 mg intranasal ONCE Rx Instructions: as a single dose budesonide-formoterol 80-4.5 mcg/actuation HFA aerosol inhaler 1 inh inhalation BID dulaglutide 1.5 mg/0.5 mL pen injector 1.5 mg subcut QWEEK pregabalin 50 mg capsule 50 mg PO TID Patient Comments: 06/04/23 per PCP med list [facility] nitroglycerin [Nitrostat] 0.4 MG tablet, sublingual 0.4 mg Sublingual PRN PRN cyclobenzaprine 10 MG tablet 10 mg PO HS PRN rosuvastatin [Crestor] 10 MG tablet 20 mg PO DAILY bupropion HCl 150 MG tablet extended release 12 hr 150 mg PO BID pantoprazole 40 MG tablet,delayed release (DR/EC) 40 mg PO BID Trulicity 0.75 mg/0.5 mL pen injector 0.75 mg SUBCUT DIRECTED Patient Comments: INJECT 75MG ( 0.5ML) UNDER THE SKIN ONCE A WEEK -- WILL INCREASE IN 4 - 6 WEEKS IF TOLERATED Rx Instructions: weekly isosorbide mononitrate 30 mg tablet extended release 24 hr 30 mg PO QAM metformin 1,000 mg tablet extended release 24hr 1,000 mg PO BID Qty: 60 0RF topiramate 25 mg tablet 25 - 50 mg PO BID Patient Comments: TAKE ONE TABLET BY MOUTH EVERY MORNING Rx Instructions: 25 mg in AM, 50 mg PM. HPI General Date/Time Provider Initiated Documentation: 04/30/24 13:40. HPI Narrative: 58-year-old male brought in by EMS for altered mental status, 911 called from [facility] for altered mental status and chest pain, hyperglycemia noted by EMS Related Data Home Medications ?Medication ?Instructions ?Recorded ?Confirmed cyclobenzaprine 10 mg tablet 10 mg PO HS PRN 12/31/12 01/20/23 nitroglycerin 0.4 mg sublingual 0.4 mg sublingual PRN PRN 12/31/12 01/20/23 tablet (Nitrostat) rosuvastatin 10 mg tablet (Crestor) 20 mg PO DAILY 12/31/12 01/20/23 bupropion HCl 150 mg tablet,12 hr 150 mg PO BID 02/14/14 01/20/23 sustained-release pantoprazole 40 mg tablet,delayed 40 mg PO BID 02/14/14 01/20/23 release albuterol sulfate 90 mcg/actuation 2 puff inhalation Q4H 12/26/19 01/20/23 aerosol inhaler (ProAir HFA) aspirin 81 mg tablet,delayed 81 mg PO DAILY 12/26/19 01/20/23 release (Adult Aspirin Regimen) hydroxyzine pamoate 50 mg capsule 25 mg PO Q4H PRN #90 tab-caps 12/26/19 01/20/23 pramipexole 0.5 mg tablet (Mirapex) 0.5 - 1 mg PO DIRECTED 12/26/19 01/20/23 simethicone 80 mg chewable tablet 80 mg PO BID-QID PRN 12/26/19 01/20/23 (Gas Relief (simethicone)) sucralfate 1 gram tablet (Carafate) 1 gm PO QACHS 12/26/19 01/20/23 colchicine 0.6 mg tablet 0.6 mg PO BID 11/23/20 01/20/23 docusate sodium 100 mg capsule 100 mg PO BID PRN 11/23/20 01/20/23 (Colace) polyethylene glycol 3350 17 17 gm PO DAILY PRN 11/23/20 01/20/23 gram/dose oral powder (Miralax) ranolazine 500 mg tablet,extended 500 mg PO BID #60 tabs 11/23/20 01/20/23 release,12 hr duloxetine 60 mg capsule,delayed 60 mg PO BID 12/24/20 01/20/23 release (Cymbalta) gabapentin 300 mg capsule 600 - 900 mg PO TID 12/24/20 01/20/23 losartan 25 mg tablet 12.5 mg PO DAILY 12/24/20 01/20/23 prochlorperazine maleate 10 mg 10 mg PO Q8H PRN 12/24/20 01/20/23 tablet topiramate 25 mg tablet 25 - 50 mg PO BID 06/07/21 01/20/23 dulaglutide 0.75 mg/0.5 mL 0.75 mg subcut DIRECTED 10/21/21 01/20/23 subcutaneous pen injector (Trulicity) isosorbide mononitrate 30 mg 30 mg PO QAM 10/21/21 01/20/23 tablet,extended release 24 hr metformin 1,000 mg tablet,extended 1,000 mg PO BID #60 tabs 10/24/21 01/20/23 release 24hr (osmotic) amlodipine 5 mg tablet 5 mg PO DAILY 01/21/22 01/20/23 metoprolol succinate 200 mg See Rx Instructions .Route 03/24/23 tablet,extended release 24 hr .COMPLEX #90 tabs budesonide-formoterol HFA 80 1 inh inhalation BID 06/04/23 mcg-4.5 mcg/actuation aerosol inhaler dulaglutide 1.5 mg/0.5 mL 1.5 mg subcut QWEEK 06/04/23 subcutaneous pen injector glucagon 3 mg/actuation nasal spray 3 mg intranasal ONCE 06/04/23 pregabalin 50 mg capsule 50 mg PO TID 06/04/23 Previous Rx's ?Medication ?Instructions ?Recorded ranolazine 500 mg tablet,extended 500 mg PO BID #60 tabs 11/23/20 release,12 hr metformin 1,000 mg tablet,extended 1,000 mg PO BID #60 tabs 10/24/21 release 24hr (osmotic) metoprolol succinate 200 mg See Rx Instructions .Route 03/24/23 tablet,extended release 24 hr .COMPLEX #90 tabs Allergies Allergy/AdvReac Type Severity Reaction Status Date / Time thallium-201 (Thallium-201) Allergy Severe Pt went to Verified 01/20/23 10:[place] [facility] [place] ciprofloxacin Allergy Intermediate Verified 01/20/23 10:56 lisinopril AdvReac cough Verified 01/20/23 10:56 Paper tape Allergy Intermediate rash Uncoded 01/20/23 10:56 General Stated Complaint: Chest Pain NANCY: 1 Exam Narrative Exam Narrative: Altered mental status somnolent Dry oral mucosa dry lips Heart sounds normal no murmurs rubs or gallops Lungs clear bilaterally no wheezes rales or rhonchi Abdomen soft nontender nondistended Patient opening eyes to verbal stimuli, no spontaneous speech, will move extremities to command without focal deficit No peripheral edema Course Vital Signs Vital signs: Vital Signs Pulse 86 04/30/24 13:39 Respiratory Rate 20 04/30/24 13:39 Blood Pressure 122/71 04/30/24 13:39 Pulse Oximetry 96 04/30/24 13:39 Pulse 86 04/30/24 13:39 Respiratory Rate 17 04/30/24 14:07 Respiratory Effort Normal, Non-Labored 04/30/24 14:07 Respiratory Depth Normal 04/30/24 14:07 Respiratory Pattern Normal 04/30/24 14:07 Blood Pressure 122/71 04/30/24 13:39 Blood Pressure Position Sitting 04/30/24 13:39 Pulse Oximetry 96 04/30/24 13:39 Oxygen Delivery Method Room Air 04/30/24 13:39 Oxygen Flow Rate 0 04/30/24 13:39 Lab/Test Results Lab/Test Results: Laboratory Tests Range/Units 04/30/24 13:47 WBC (4.4-10.8) 10^3/uL 7.97 RBC (4.36-5.78) 10^6/uL 5.08 Hgb (13.5-17.5) g/dL 14.8 Hct (40.0-50.0) % 43.5 MCV (80-95) fL 86 MCH (27.0-33.0) pg 29.1 MCHC (32.0-36.0) % 34.0 RDW (11.8-14.1) % 13.1 Plt Count (130-400) 10^3/uL 177 MPV (8.0-11.0) fL 10.5 Immature Gran % % 1.0 Neutrophils % % 50.3 Lymphocytes % % 36.0 Monocytes % % 7.8 Eosinophils % % 3.9 Basophils % % 1.0 Nucleated RBC % (0.0-0.3) % 0.0 Absolute Neutrophils (1.2-6.7) 10^3/uL 4.01 Absolute Lymphocytes (1.2-3.4) 10^3/uL 2.87 Absolute Monocytes (0.1-0.8) 10^3/uL 0.62 Absolute Eosinophils (0.0-0.7) 10^3/uL 0.31 Absolute Basophils (0.0-0.2) 10^3/uL 0.08 PT (9.1-11.1) sec 10.3 INR (0.9-1.1) 1.0 APTT (23.6-32.8) sec 21.2 L VBG pH (7.31-7.41) 7.35 VBG pCO2 (41-51) mmHg 41 VBG pO2 mmHg 78 VBG HCO3 (23-28) mmol/L 23 VBG Total CO2 (24-29) mmol/L 20 L VBG O2 Saturation % 96 VBG Base Excess (-2-3) mmol/L -3 L Ammonia (11-32) umol/L 45 H Medical Decision Making 58-year-old male presents with chest pain weakness hypotension altered mental status hyperglycemia noted to be dry with dry oromucosa and dry lips, low blood pressures 90s systolic in the field had improved to 120s over 70s here nontachycardic not hypoxic nontachypneic, high clinical suspicion for hyperosmolar nonketotic syndrome versus severe dehydration versus electrolyte derangement muscles consider infectious process such as pneumonia UTI or viral illness lower suspicion for encephalitis or meningitis given history and physical, rectal temperature 99 ?F, will provide fluid resuscitation with 1 L NS 1 L lactated ringer, stat head CT, chest x-ray, EKG respiratory's been called to the bedside airway equipment is set up in case patient's mental status declines further. ICU admission likely 16:33 improving mental status after 2 L crystalloid, opening eyes spontaneously, moving to commands; now requiring 2L NC to maintain sats in 90s; BNP normal, lungs clear, however must be cautious for developing pulm edema; rechecking FS glucose, will add subq insulin if high; admitting to ICU Quality:SDOH Health Related Social Needs: No Data to Display PFSH All Active Problems (Updated 04/30/24 @ 16:36 by Graham Garcia MD) Hyperammonemia (Acute) Dehydration (Acute) Hyperglycemia (Acute) AMS (altered mental status) (Acute) Thyroid nodule (Acute) Hyperplastic colon polyp (Acute) Tubular adenoma of colon (Acute) CAD (coronary artery disease) (Chronic) a. [place] [facility] [place] b. Restenosis of LAD and two more stents to LAD at [facility] 01/2014 c. 50% proximal RCA lesion d. Recurrent angina on Ranolazine e. 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) Migraine headache with aura (03/21/15) Medication overuse headache (03/21/15) Knee pain Diabetes mellitus Ketoacidosis due to secondary diabetes mellitus Low back pain Asthma COPD (chronic obstructive pulmonary disease) Abscess of right groin Dental infection Discharge planning issues Hypomagnesemia Ileitis Hematuria Smoker Myocardial infarction, inferior wall 2013 Hemiplegic migraine With intractable migraine, so stated, without mention of status migrainosus Postural lightheadedness Gastropathy Duodenitis Syncope Left cervical radiculopathy Gastroparesis diabeticorum RLS (restless legs syndrome) Tachycardia, paroxysmal Myalgia Leg pain, right Family history of colon cancer Reaction, situational Headache Acute diarrhea Abdominal pain Hypotensive episode Diverticulitis Peripheral neuropathy Palpitations Chronic pain Knee pain, left Hip pain, right Cervicalgia Shoulder pain, left Depression H/O: gout GERD (gastroesophageal reflux disease) Fibromyalgia Thyroid nodule Cholelithiasis a. cholecystectomy Surgical History Hx of discectomy History of arthroscopic surgery of shoulder Hx of tonsillectomy History of cholecystectomy History of knee surgery History of colonoscopy (~09/2021) History of coronary artery stent placement H/O surgical procedure a. cath and stents b. cholecystectomy c. back surgery Family History Other Cancer Colon cancer Social History Smoking/Tobacco Use Status: Current every day Tobacco Type: cigarettes Smoking risk assessment performed?: Yes Alcohol Intake: former Drug use: Daily Substance use type: marijuana Details: 2-3 joints/day Household members: spouse Housing: house Number of Children: 2 current occupation: Disabled Current gender identity: male What type of physical activity do you participate in: walking, independent ambulation and additional Details: work at home (outside work) Do you feel safe at home: Yes Do you feel safe in your relationship?: Yes
[2024-04-30 14:31] LABS: ALT 16 U/L (16-63); AST 5 U/L (15-37); Albumin 3.4 g/dL (3.4-5.0); Alkaline Phosphatase 82 U/L (46-116); Anion Gap 9.8 mmol/L (3-11); BUN 7 mg/dL (7-18); Bilirubin, Total 0.28 mg/dL (0.2-1.0); CO2 23.2 mmol/L (21.0-32.0); CREATININE 1.1 mg/dL (0.70-1.30); Calcium 8.9 mg/dL (8.5-10.1); Chloride 99 mmol/L (98-107); Creatine Kinase 100 U/L (39-308); Estimated GFR 78.79 (mL/min/1.73m2); Glucose 427 mg/dL (74-106); Lipase 38 U/L (16-77); Magnesium 1.8 mg/dL (1.8-2.4); NT-proBNP 36 pg/mL (<300); Potassium 3.9 mmol/L (3.5-5.1); Sodium 132 mmol/L (136-145); TSH (W/Ref FT4) 0.46 uIU/mL (0.36-3.74); Total Protein 7.1 g/dL (6.4-8.2)
[2024-04-30 14:33] LABS: ETHANOL BLOOD < 3.0 mg/dL (<10); Salicylate < 2.8 mg/dL (<2.8); Troponin I < 4 ng/L (4-76)
[2024-04-30 14:35] LABS: Acetaminophen < 2 ug/mL (10-30)
[2024-04-30 15:14] LABS: Bilirubin Negative (Negative); Blood Negative (Negative); Clarity Clear (Clear); Glucose 500 mg/dL (Negative); Ketones Negative (Negative); Leukocyte Esterase Negative (Negative); Nitrite Negative (Negative); Specific Gravity 1.015 (1.005-1.025); Urobilinogen 0.2 mg/dL (Up to 0.2)
[2024-04-30 15:39] LABS: *AMPHETAMINES SCREEN URINE Negative (Negative); *BARBITURATES SCREEN URINE Negative (Negative); *BENZODIAZEPINES SCREEN URINE Negative (Negative); Cannabinoids THC Positive (Negative); Cocaine Screen,Urine Negative (Negative); METHADONE URINE SCREEN Negative (Negative); OPIATES URINE SCREEN Negative (Negative)
[2024-04-30 15:42] LABS: Tricyclic Antidepressants Negative (Negative)
--- NOTE | 2024-04-30 16:39 | W.EDPROG ---
Date of service: 04/30/24 Time of Service: 16:40 Medical Decision Making Fingerstick downtrending to 260 with just fluids. Will hold on subcu insulin. Finger probe readjusted patient saturating mid 90s. Will down titrate nasal cannula. Could likely tolerate more crystalloid Quality:SDOH Health Related Social Needs: No Data to Display Discharge Plan Disposition Patient Disposition: Admit to [facility] Condition: Serious Discharge Details Clinical Impression: AMS (altered mental status), Hyperglycemia, Dehydration, Hyperammonemia Primary Care Provider: Coni Lim V ED Provider: Graham Garcia Home Meds and New Rx's Prescriptions: No Action ranolazine 500 mg tablet extended release 12 hr 500 mg PO BID Qty: 60 3RF prochlorperazine maleate 10 mg Tablet 10 mg PO Q8H PRN losartan 25 mg Tablet 12.5 mg PO DAILY gabapentin 300 mg Capsule 600 - 900 mg PO TID Rx Instructions: Take 2 caps QAM, 3 caps in afternoon, 3 caps QHS. duloxetine [Cymbalta] 60 mg Capsule,Delayed Release(Dr/Ec) 60 mg PO BID amlodipine 5 mg tablet 5 mg PO DAILY hydroxyzine pamoate 50 mg capsule 25 mg PO Q4H PRN Qty: 90 Patient Comments: 08/01/15 not recently Rx Instructions: prn headache pramipexole [Mirapex] 0.5 mg tablet 0.5 - 1 mg PO DIRECTED Rx Instructions: 1 tab qam 2 tab qhs aspirin [Adult Aspirin Regimen] 81 mg tablet,delayed release (DR/EC) 81 mg PO DAILY sucralfate [Carafate] 1 gram tablet 1 gm PO QACHS albuterol sulfate [ProAir HFA] 90 mcg/actuation HFA aerosol inhaler 2 puff IH Q4H simethicone [Gas Relief (simethicone)] 80 mg tablet,chewable 80 mg PO BID-QID PRN Patient Comments: not on pt list colchicine 0.6 mg tablet 0.6 mg PO BID Patient Comments: 08/01/15 not using docusate sodium [Colace] 100 mg capsule 100 mg PO BID PRN polyethylene glycol 3350 [Miralax] 17 gram/dose powder 17 gm PO DAILY PRN metoprolol succinate 200 mg tablet extended release 24 hr See Rx Instructions .ROUTE .COMPLEX Qty: 90 3RF Dose Instruction: TAKE ONE TABLET BY MOUTH DAILY AT 9AM Rx Instructions: TAKE ONE TABLET BY MOUTH DAILY AT 9AM glucagon 3 mg/actuation spray,non-aerosol 3 mg intranasal ONCE Rx Instructions: as a single dose budesonide-formoterol 80-4.5 mcg/actuation HFA aerosol inhaler 1 inh inhalation BID dulaglutide 1.5 mg/0.5 mL pen injector 1.5 mg subcut QWEEK pregabalin 50 mg capsule 50 mg PO TID Patient Comments: 06/04/23 per PCP med list [facility] nitroglycerin [Nitrostat] 0.4 MG tablet, sublingual 0.4 mg Sublingual PRN PRN cyclobenzaprine 10 MG tablet 10 mg PO HS PRN rosuvastatin [Crestor] 10 MG tablet 20 mg PO DAILY bupropion HCl 150 MG tablet extended release 12 hr 150 mg PO BID pantoprazole 40 MG tablet,delayed release (DR/EC) 40 mg PO BID Trulicity 0.75 mg/0.5 mL pen injector 0.75 mg SUBCUT DIRECTED Patient Comments: INJECT 75MG ( 0.5ML) UNDER THE SKIN ONCE A WEEK -- WILL INCREASE IN 4 - 6 WEEKS IF TOLERATED Rx Instructions: weekly isosorbide mononitrate 30 mg tablet extended release 24 hr 30 mg PO QAM metformin 1,000 mg tablet extended release 24hr 1,000 mg PO BID Qty: 60 0RF topiramate 25 mg tablet 25 - 50 mg PO BID Patient Comments: TAKE ONE TABLET BY MOUTH EVERY MORNING Rx Instructions: 25 mg in AM, 50 mg PM.
--- NOTE | 2024-04-30 16:57 | W.PM.HP.N ---
Date of service: 04/30/24 Time of Service: 16:57 Assessment and Plan Assessment and plan (1) Hyperammonemia: Status: Acute Assessment and plan: NH3 45 with signs of encephalopathy in the setting of metabolic encephalopathy (2) Metabolic encephalopathy: Status: Acute Assessment and plan: As above and most likely d/t hyperglycemia and dehydration see points 3. and 4. (3) Dehydration: Status: Acute Assessment and plan: Dry mucous membranes with initial systolic blood pressure in the low 90s Considered slow IV hydration but with rapidly improving hyperglycemia will hold off s/p 2 l of IVF given in ED Cr 1.1 and BUN 7- BMP in AM Monitor for pulmonary congestion and decompensation Last echo done on 06/08/2021 showed an LVEF of 55% (4) Hyperglycemia: Status: Acute Assessment and plan: Glucose every 4 hours until stable for 2 consecutive readings then AC and HS Considered Lantus 10 units subcut but d/t repeat blood glucose after 1l of crystalloid at 264- will discontinue Sliding scale insulin at mealtimes (5) Acute respiratory failure: Status: Acute Assessment and plan: 2 L of oxygen initiated in the ED with improvement in saturation Wean oxygen as tolerated when patient mental status is improved (6) Diabetes mellitus, type II: Status: Chronic Assessment and plan: As above Will hold metformin and Trulicity and dulaglutide Qualifiers: Diabetes mellitus complication status: with other specified complication Diabetes mellitus technician terminal and repeater insulin use: without technician terminal and repeater use Qualified Code(s): E11.69 - Type 2 diabetes mellitus with other specified complication (7) AMS (altered mental status): Status: Acute Assessment and plan: Improving after IV resuscitation in the ED Will continue to monitor No acute findings as per head CT most likely due to to metabolic state resembling HHNK as there is no ketones in the urine (8) CAD (coronary artery disease): Status: Chronic Assessment and plan: Continue home medicine regimen (9) Hypertension: Status: Chronic Assessment and plan: Continue home medicine regimen Qualifiers: Hypertension type: unspecified Qualified Code(s): I10 - Essential (primary) hypertension (10) Hyperlipidemia: Status: Chronic Assessment and plan: Continue home dose of statin History of Present Illness History of Present Illness Chief Complaint: Chest pain, weakness, altered mental status, hyperglycemia Narrative: This 68 years old male patient with a past medical history of PSVT, diabetes, myocardial infarction of the inferior wall, cardiac stent placement, angina, hypertension, hyperlipidemia GERD, depression and fibromyalgia presented to the ED at [facility].On arrival the patient appeared to have dry mucous membranes with decreased [place] Coma Scale, was nonverbal, with a [id number] blood sugar over 500.The patient's initial saturation was 87% improving to mid 90's with 2l/min of oxygen via nasal canula. The workup in the ED was significant for sodium of 132, glucose of 427 to 501 without an anion gap and negative urine ketones, ammonia of 45; no acidosis as per VBG. Head CT was negative for any acute findings. Troponin was negative, EKG showed no acute injury. Chest x-ray questioned mild pulmonary venous congestion. In the ED the patient was treated with 2 L of crystalloids upon which the patient started to have urinary output and improved alertness. The hospitalist was consulted and the patient was admitted to the medical surgical floor with telemetry for metabolic encephalopathy due to hyperglycemia and dehydration, acute respiratory failure due to metabolic encephalopathy.Repeated blood sugar in the ED was 264, and no insulin was given. The patient was alert and oreitned X3 when seen in the ED but did not remember how he came to the ED.Reported not taking is trulicity about a month ago. Reported starting to feel sick last night with lightheadedness, headache, blurred vision, cough w/o hemoptysis, nausea without vomiting. The patient reported his usual chest pain last night progressing to pain irradiating to his left jaw, left arm pain reported as chronic. The patient denies vomiting, diarrhea or dysuria. The patient confirmed that he would want CPR. The patient is a full code. the patient is still a daily smoker and feels that he does not need nicotine replacement therapy. The patient denied ETOH abuse. Discussed with Dr. Schneider Review of Systems All systems reviewed & are unremarkable except as noted in HPI and below PFSH All Active Problems Acute respiratory failure (Acute) Metabolic encephalopathy (Acute) Hyperammonemia (Acute) Dehydration (Acute) Hyperglycemia (Acute) AMS (altered mental status) (Acute) Thyroid nodule (Acute) Hyperplastic colon polyp (Acute) Tubular adenoma of colon (Acute) CAD (coronary artery disease) (Chronic) a. LAD stent at [facility] 2012 b. Restenosis of LAD and two more stents to LAD at [facility] 01/2014 c. 50% proximal RCA lesion d. Recurrent angina on Ranolazine e. 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) Migraine headache with aura (03/21/15) Medication overuse headache (03/21/15) Knee pain Diabetes mellitus Ketoacidosis due to secondary diabetes mellitus Low back pain Asthma COPD (chronic obstructive pulmonary disease) Abscess of right groin Dental infection Discharge planning issues Hypomagnesemia Ileitis Hematuria Smoker Myocardial infarction, inferior wall 2012 Hemiplegic migraine With intractable migraine, so stated, without mention of status migrainosus Postural lightheadedness Gastropathy Duodenitis Syncope Left cervical radiculopathy Gastroparesis diabeticorum RLS (restless legs syndrome) Tachycardia, paroxysmal Myalgia Leg pain, right Family history of colon cancer Reaction, situational Headache Acute diarrhea Abdominal pain Hypotensive episode Diverticulitis Peripheral neuropathy Palpitations Chronic pain Knee pain, left Hip pain, right Cervicalgia Shoulder pain, left Depression H/O: gout GERD (gastroesophageal reflux disease) Fibromyalgia Thyroid nodule Cholelithiasis a. cholecystectomy Surgical History Hx of discectomy History of arthroscopic surgery of shoulder Hx of tonsillectomy History of cholecystectomy History of knee surgery History of colonoscopy (~09/2021) History of coronary artery stent placement H/O surgical procedure a. cath and stents b. cholecystectomy c. back surgery Family History Other Cancer Colon cancer Social History Smoking/Tobacco Use Status: Current every day Tobacco Type: cigarettes Smoking risk assessment performed?: Yes Alcohol Intake: former Drug use: Daily Substance use type: marijuana Details: 2-3 joints/day Household members: spouse Housing: house Number of Children: 2 current occupation: Disabled Current gender identity: male What type of physical activity do you participate in: walking, independent ambulation and additional Details: work at home (outside work) Do you feel safe at home: Yes Do you feel safe in your relationship?: Yes Meds Allergies and Home Medications Allergies Allergy/AdvReac Type Severity Reaction Status Date / Time thallium-201 (Thallium-201) Allergy Severe Pt went to Verified 01/20/23 10:56 [facility] due to med ciprofloxacin Allergy Intermediate Verified 01/20/23 10:56 lisinopril AdvReac cough Verified 01/20/23 10:56 Paper tape Allergy Intermediate rash Uncoded 01/20/23 10:56 Home Medications ?Medication ?Instructions ?Recorded ?Confirmed ?Type cyclobenzaprine 10 mg tablet 10 mg PO HS PRN 12/31/12 04/30/24 History nitroglycerin 0.4 mg sublingual 0.4 mg sublingual PRN PRN 12/31/12 04/30/24 History tablet (Nitrostat) rosuvastatin 10 mg tablet (Crestor) 20 mg PO HS 12/31/12 04/30/24 History bupropion HCl 150 mg tablet,12 hr 150 mg PO BID 02/14/14 04/30/24 History sustained-release pantoprazole 40 mg tablet,delayed 40 mg PO BID 02/14/14 04/30/24 History release albuterol sulfate 90 mcg/actuation 2 puff inhalation Q4H PRN 12/26/19 04/30/24 History aerosol inhaler (ProAir HFA) shortness of breath or wheezing aspirin 81 mg tablet,delayed 81 mg PO DAILY 12/26/19 04/30/24 History release (Adult Aspirin Regimen) hydroxyzine pamoate 50 mg capsule 25 mg PO Q4H PRN #90 tab-caps 12/26/19 04/30/24 History pramipexole 0.5 mg tablet (Mirapex) PO BID 12/26/19 01/20/23 History simethicone 80 mg chewable tablet 80 mg PO BID-QID PRN 12/26/19 04/30/24 History (Gas Relief (simethicone)) sucralfate 1 gram tablet (Carafate) 1 gm PO QACHS 12/26/19 04/30/24 History colchicine 0.6 mg tablet 0.6 mg PO BID PRN gout flare 11/23/20 04/30/24 History docusate sodium 100 mg capsule 100 mg PO BID PRN 11/23/20 04/30/24 History (Colace) polyethylene glycol 3350 17 17 gm PO DAILY PRN 11/23/20 04/30/24 History gram/dose oral powder (Miralax) ranolazine 500 mg tablet,extended 500 mg PO BID #60 tabs 11/23/20 04/30/24 Rx release,12 hr duloxetine 60 mg capsule,delayed 60 mg PO BID 12/24/20 04/30/24 History release (Cymbalta) gabapentin 300 mg capsule 900 mg PO TID 12/24/20 04/30/24 History losartan 25 mg tablet 12.5 mg PO DAILY 12/24/20 04/30/24 History prochlorperazine maleate 10 mg 10 mg PO Q8H PRN 12/24/20 04/30/24 History tablet topiramate 25 mg tablet See Rx Instructions PO BID 06/07/21 04/30/24 History dulaglutide 0.75 mg/0.5 mL 0.75 mg subcut DIRECTED 10/21/21 04/30/24 History subcutaneous pen injector (Trulicity) isosorbide mononitrate 30 mg 30 mg PO QAM 10/21/21 04/30/24 History tablet,extended release 24 hr metformin 1,000 mg tablet,extended 1,000 mg PO BID #60 tabs 10/24/21 04/30/24 Rx release 24hr (osmotic) metoprolol succinate 200 mg See Rx Instructions .Route 03/24/23 04/30/24 Rx tablet,extended release 24 hr .COMPLEX #90 tabs budesonide-formoterol HFA 80 1 inh inhalation BID 06/04/23 04/30/24 History mcg-4.5 mcg/actuation aerosol inhaler dulaglutide 1.5 mg/0.5 mL 1.5 mg subcut QWEEK 06/04/23 04/30/24 History subcutaneous pen injector glucagon 3 mg/actuation nasal spray 3 mg intranasal ONCE 06/04/23 04/30/24 History pregabalin 50 mg capsule 50 mg PO TID 06/04/23 04/30/24 History Exam Narrative Exam Narrative: Constitutional The patient is lying in stretcher without acute distress HENMT: Facial structures with normal appearance Eyes: Well aligned Neuro:alert and oriented to self, person, place, time and situation. No neurological focal deficit Chest:Chest is symmetrical and normal appearance Resp: Normal respiratory pattern, speaks in full sentences, unlabored breathing, ronchi clearing with cough -clear lung bilaterally Cardio: regular rhythm, S1, S, bilateral radial and dorsalis pedis pulses are positive GI: Abdomen is not distended, soft and non tender, bowel sounds are present :No bladder distension Integumentary: No skin lesions or rash on exposed skin Extremities: generalized weakness, but equal strength Psych: RASS 0, congruent mood and normal affect. Results Labs 04/30/24 13:47 04/30/24 13:47 Labs: Laboratory Results - last 24 hr 04/30/24 04/30/24 04/30/24 13:47 13:51 14:53 WBC 7.97 RBC 5.08 Hgb 14.8 Hct 43.5 MCV 86 MCH 29.1 MCHC 34.0 RDW 13.1 Plt Count 177 MPV 10.5 Immature Gran % 1.0 Neutrophils % 50.3 Lymphocytes % 36.0 Monocytes % 7.8 Eosinophils % 3.9 Basophils % 1.0 Nucleated RBC % 0.0 Absolute Neutrophils 4.01 Absolute Lymphocytes 2.87 Absolute Monocytes 0.62 Absolute Eosinophils 0.31 Absolute Basophils 0.08 PT 10.3 INR 1.0 APTT 21.2 L VBG pH 7.35 VBG pCO2 41 VBG pO2 78 VBG HCO3 23 VBG Total CO2 20 L VBG O2 Saturation 96 VBG Base Excess -3 L Sodium 132 L Potassium 3.9 Chloride 99 Carbon Dioxide 23.2 Anion Gap 9.8 BUN 7 Creatinine 1.1 Est GFR (CKD-EPI 2020) 78.79 Glucose 427 H Calcium 8.9 Magnesium 1.8 Total Bilirubin 0.28 AST 5 L ALT 16 Alkaline Phosphatase 82 Ammonia 45 H Creatine Kinase 100 Troponin I High Sens < 4 L NT-Pro-B Natriuret Pep 36 Total Protein 7.1 Albumin 3.4 Lipase 38 TSH 0.46 Urine Color Yellow Urine Clarity Clear Urine pH 7.0 Ur Specific [place] 1.015 Urine Protein Negative Urine Ketones Negative Urine Blood Negative Urine Nitrite Negative Urine Bilirubin Negative Urine Urobilinogen 0.2 Ur Leukocyte Esterase Negative Urine Glucose 500 H Salicylates < 2.8 Urine Opiates Screen Negative Urine Methadone Screen Negative Acetaminophen < 2 Ur Barbiturates Screen Negative Ur Tricyclics Screen Negative Ur Amphetamines Screen Negative U Benzodiazepines Scrn Negative Urine Cocaine Screen Negative Ur THC Screen Positive A Ethyl Alcohol < 3.0 ABO/Rh B Positive Antibody Screen NEGATIVE Last Vital Signs Temp 37.4 C 04/30/24 14:23 Pulse 73 04/30/24 16:46 Resp 12 04/30/24 16:46 BP 114/66 04/30/24 16:46 Pulse Ox 97 04/30/24 16:46 Time Spent Time spent with Patient: >75 minutes Time was spent: preparing to see the patient(eg.review tests), obtaining and/or reviewing separately otained hiistory, ordering medications,tests, procedures, referring, communicating with other health home health care case manager, indepentently interpreting results, counseling the patient and care coordination
[2024-04-30 17:45] LABS: Troponin I < 4 ng/L (4-76)
--- NOTE | 2024-04-30 18:16 | W.PC.ACHO ---
Registration Status: Primary Language: Preferred Language: ED Information & Data Chief Complaint Chest Pain 04/30/24 17:49 Chief Complaint Chest Pain 04/30/24 14:21 Triage Note Pt presented to [facility] 04/30/24 13:39 Medical w/chest pain & weakness. Had to be carried into the room by staff who then called 911. Noted to be hyperglycemic at 501 and hypotensive. 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) Migraine headache with aura (03/21/15) Medication overuse headache (03/21/15) Knee pain Diabetes mellitus Ketoacidosis due to secondary diabetes mellitus Low back pain Asthma COPD (chronic obstructive pulmonary disease) Abscess of right groin Dental infection Discharge planning issues Hypomagnesemia Ileitis Hematuria Smoker Myocardial infarction, inferior wall Hemiplegic migraine Postural lightheadedness Gastropathy Duodenitis Syncope Left cervical radiculopathy Gastroparesis diabeticorum RLS (restless legs syndrome) Tachycardia, paroxysmal Myalgia Leg pain, right Family history of colon cancer Reaction, situational Headache Acute diarrhea Abdominal pain Hypotensive episode Diverticulitis Peripheral neuropathy Palpitations Chronic pain Knee pain, left Hip pain, right Cervicalgia Shoulder pain, left Depression H/O: gout GERD (gastroesophageal reflux disease) Fibromyalgia Thyroid nodule Cholelithiasis (Last Reviewed 01/20/23 @ 10:44 by Helen Gutierrez MD) Hx of discectomy History of arthroscopic surgery of shoulder Hx of tonsillectomy History of cholecystectomy History of knee surgery History of colonoscopy (~09/2021) History of coronary artery stent placement H/O surgical procedure Most Recent Vital Signs Temperature 37.4 C 04/30/24 14:23 Temperature Source Rectal 04/30/24 14:23 Pulse 67 04/30/24 18:01 Pulse 68 04/30/24 18:01 Respiratory Rate 13 04/30/24 18:01 Respiratory Effort Normal, Non-Labored 04/30/24 17:49 Respiratory Depth Normal 04/30/24 14:07 Respiratory Pattern Normal 04/30/24 14:07 Blood Pressure 116/62 04/30/24 18:01 Blood Pressure Mean 71 04/30/24 18:01 Blood Pressure Position Sitting 04/30/24 13:39 Pulse Oximetry 96 04/30/24 18:01 Oxygen Delivery Method Room Air 04/30/24 14:23 Oxygen Flow Rate 0 04/30/24 14:23 Comment RA 04/30/24 16:46 Allergies thallium-201 (Thallium-201) Allergy (Severe, Verified 01/20/23 10:56) Pt went to [facility] due to med Severe chest pain ciprofloxacin Allergy (Intermediate, Verified 01/20/23 10:56) chest pain, elevated HR lisinopril Adverse Reaction (Verified 01/20/23 10:56) cough Paper tape Allergy (Intermediate, Uncoded 01/20/23 10:56) rash Precautions Isolation Standard precaution 04/30/24 17:49 IV IV Catheter Type [Left Peripheral IV Antecubital] IV Catheter Type [Right Hand] Peripheral IV IV Catheter Gauge [Left 18 Antecubital] IV Catheter Gauge [Right Hand] 20 Diagnostics 04/30/24 04/30/24 04/30/24 Range/Units 17:09 14:53 13:51 WBC (4.4-10.8) 10^3/uL RBC (4.36-5.78) 10^6/uL Hgb (13.5-17.5) g/dL Hct (40.0-50.0) % MCV (80-95) fL MCH (27.0-33.0) pg MCHC (32.0-36.0) % RDW (11.8-14.1) % Plt Count (130-400) 10^3/uL MPV (8.0-11.0) fL Immature Gran % % Neutrophils % % Lymphocytes % % Monocytes % % Eosinophils % % Basophils % % Nucleated RBC % (0.0-0.3) % Absolute Neutrophils (1.2-6.7) 10^3/uL Absolute Lymphocytes (1.2-3.4) 10^3/uL Absolute Monocytes (0.1-0.8) 10^3/uL Absolute Eosinophils (0.0-0.7) 10^3/uL Absolute Basophils (0.0-0.2) 10^3/uL PT (9.1-11.1) sec INR (0.9-1.1) APTT (23.6-32.8) sec VBG pH (7.31-7.41) VBG pCO2 (41-51) mmHg VBG pO2 mmHg VBG HCO3 (23-28) mmol/L VBG Total CO2 (24-29) mmol/L VBG O2 Saturation % VBG Base Excess (-2-3) mmol/L Sodium (136-145) mmol/L Potassium (3.5-5.1) mmol/L Chloride (98-107) mmol/L Carbon Dioxide (21.0-32.0) mmol/L Anion Gap (3-11) mmol/L BUN (7-18) mg/dL Creatinine (0.70-1.30) mg/dL Est GFR (CKD-EPI 2020) (mL/min/1.73m2) Glucose (74-106) mg/dL Calcium (8.5-10.1) mg/dL Magnesium (1.8-2.4) mg/dL Total Bilirubin (0.2-1.0) mg/dL AST (15-37) U/L ALT (16-63) U/L Alkaline Phosphatase (46-116) U/L Ammonia (11-32) umol/L Creatine Kinase (39-308) U/L Troponin I High Sens < 4 L (4-76) ng/L NT-Pro-B Natriuret Pep (<300) pg/mL Total Protein (6.4-8.2) g/dL Albumin (3.4-5.0) g/dL Lipase (16-77) U/L TSH (0.36-3.74) uIU/mL Urine Color Yellow (Yellow) Urine Clarity Clear (Clear) Urine pH 7.0 (5-8) Ur Specific [place] 1.015 (1.005-1.025) Urine Protein Negative (Neg-Trace) mg/dL Urine Ketones Negative (Negative) mg/dL Urine Blood Negative (Negative) Urine Nitrite Negative (Negative) Urine Bilirubin Negative (Negative) Urine Urobilinogen 0.2 (Up to 0.2) mg/dL Ur Leukocyte Esterase Negative (Negative) Urine Glucose 500 H (Negative) mg/dL Salicylates (<2.8) mg/dL Urine Opiates Screen Negative (Negative) Urine Methadone Screen Negative (Negative) Acetaminophen (10-30) ug/mL Ur Barbiturates Screen Negative (Negative) Ur Tricyclics Screen Negative (Negative) Ur Amphetamines Screen Negative (Negative) U Benzodiazepines Scrn Negative (Negative) Urine Cocaine Screen Negative (Negative) Ur THC Screen Positive A (Negative) Ethyl Alcohol (<10) mg/dL ABO/Rh B Positive Antibody Screen NEGATIVE 04/30/24 Range/Units 13:47 WBC 7.97 (4.4-10.8) 10^3/uL RBC 5.08 (4.36-5.78) 10^6/uL Hgb 14.8 (13.5-17.5) g/dL Hct 43.5 (40.0-50.0) % MCV 86 (80-95) fL MCH 29.1 (27.0-33.0) pg MCHC 34.0 (32.0-36.0) % RDW 13.1 (11.8-14.1) % Plt Count 177 (130-400) 10^3/uL MPV 10.5 (8.0-11.0) fL Immature Gran % 1.0 % Neutrophils % 50.3 % Lymphocytes % 36.0 % Monocytes % 7.8 % Eosinophils % 3.9 % Basophils % 1.0 % Nucleated RBC % 0.0 (0.0-0.3) % Absolute Neutrophils 4.01 (1.2-6.7) 10^3/uL Absolute Lymphocytes 2.87 (1.2-3.4) 10^3/uL Absolute Monocytes 0.62 (0.1-0.8) 10^3/uL Absolute Eosinophils 0.31 (0.0-0.7) 10^3/uL Absolute Basophils 0.08 (0.0-0.2) 10^3/uL PT 10.3 (9.1-11.1) sec INR 1.0 (0.9-1.1) APTT 21.2 L (23.6-32.8) sec VBG pH 7.35 (7.31-7.41) VBG pCO2 41 (41-51) mmHg VBG pO2 78 mmHg VBG HCO3 23 (23-28) mmol/L VBG Total CO2 20 L (24-29) mmol/L VBG O2 Saturation 96 % VBG Base Excess -3 L (-2-3) mmol/L Sodium 132 L (136-145) mmol/L Potassium 3.9 (3.5-5.1) mmol/L Chloride 99 (98-107) mmol/L Carbon Dioxide 23.2 (21.0-32.0) mmol/L Anion Gap 9.8 (3-11) mmol/L BUN 7 (7-18) mg/dL Creatinine 1.1 (0.70-1.30) mg/dL Est GFR (CKD-EPI 2020) 78.79 (mL/min/1.73m2) Glucose 427 H (74-106) mg/dL Calcium 8.9 (8.5-10.1) mg/dL Magnesium 1.8 (1.8-2.4) mg/dL Total Bilirubin 0.28 (0.2-1.0) mg/dL AST 5 L (15-37) U/L ALT 16 (16-63) U/L Alkaline Phosphatase 82 (46-116) U/L Ammonia 45 H (11-32) umol/L Creatine Kinase 100 (39-308) U/L Troponin I High Sens < 4 L (4-76) ng/L NT-Pro-B Natriuret Pep 36 (<300) pg/mL Total Protein 7.1 (6.4-8.2) g/dL Albumin 3.4 (3.4-5.0) g/dL Lipase 38 (16-77) U/L TSH 0.46 (0.36-3.74) uIU/mL Urine Color (Yellow) Urine Clarity (Clear) Urine pH (5-8) Ur Specific [place] (1.005-1.025) Urine Protein (Neg-Trace) mg/dL Urine Ketones (Negative) mg/dL Urine Blood (Negative) Urine Nitrite (Negative) Urine Bilirubin (Negative) Urine Urobilinogen (Up to 0.2) mg/dL Ur Leukocyte Esterase (Negative) Urine Glucose (Negative) mg/dL Salicylates < 2.8 (<2.8) mg/dL Urine Opiates Screen (Negative) Urine Methadone Screen (Negative) Acetaminophen < 2 (10-30) ug/mL Ur Barbiturates Screen (Negative) Ur Tricyclics Screen (Negative) Ur Amphetamines Screen (Negative) U Benzodiazepines Scrn (Negative) Urine Cocaine Screen (Negative) Ur THC Screen (Negative) Ethyl Alcohol < 3.0 (<10) mg/dL ABO/Rh Antibody Screen [id number] Documentation Fingerstick Glucose Start: 04/30/24 13:43 Freq: Status: Complete Protocol: Activity Type Activity Date Activity User E-sign Co-sign Detail Recorded Client Recorded Date Recorded By Document 04/30/24 13:37 BKG DAEMON(5) NVT-BG05 04/30/24 13:43 BKG DAEMON(6) Fingerstick Glucose Start: 04/30/24 16:30 Freq: .Stat Status: Active Protocol: Activity Type Activity Date Activity User E-sign Co-sign Detail Recorded Client Recorded Date Recorded By Document 04/30/24 16:35 BKG DAEMON(7) NVT-BG05 04/30/24 16:36 BKG DAEMON(8) Intake and Output - 24 Hour Total 04/30/24 13:28 thru 04/30/24 17:31 Intake Total 1000 Output Total 300 Balance 700 Weight 111.7 kg Intake: IV 1000 Output: Urine 300 Falls Risk Assessment History of Falls No History 04/30/24 14:04 Contributing Factors Unstable,Impairments, 04/30/24 14:04 Medications Ambulatory Aids Independent 04/30/24 14:04 Tubes/Lines None 04/30/24 14:04 Gait Evaluation No gait disturbance 04/30/24 14:04 Cognition No cognitive impairment 04/30/24 14:04 Fall Total Score 9 04/30/24 14:04 Level of Risk Standard/Low Risk 04/30/24 14:04 Problems (Last Updated 06/03/23 @ 14:58 by Ramesh De Jesus RN) Acute respiratory failure (Acute) Metabolic encephalopathy (Acute) Hyperammonemia (Acute) Dehydration (Acute) Hyperglycemia (Acute) AMS (altered mental status) (Acute) CAD (coronary artery disease) (Chronic) Diabetes mellitus, type II (Chronic) Hypertension (Chronic) Hyperlipidemia (Chronic) v v v v v v v v v Sending and/or Receiving Nurses: Please use comment section below to note any information pertinent to the patient hand-off not included above. Information / Comments: Report taken; pt to [facility] floor Rm [id number] at [id number]. Report received from: DELMIS Mina RN
--- OUTSIDE RECORDS SUMMARY | 2024-04-30 18:18 | XMS_ITS | Clinical Summary ---
Author Organization [facility] Address [facility] [place] [address] Care Team Providers Care Rail Car Mechanic Name Role Phone Coni Lim MD Primary Care Provider [phone] Allergies Active Allergy Reactions Criticality Noted Date [...] be different from the original. Notified by [facility] in [place], [place] pt will need PA for Brilinta. Had DR. Nagy complete PA form. CRC faxed to [facility] with Fax confirmation received.. CRC Faxed copy of Brilinta coupon to [facility]. 30 day supply will be able to be filled on Thursday 06/07. CRC contacted [facility] in [place], [place]. They confirmed they can dispense 10 90 mg tabs to pt until Thursday. Pt's Dasia notified by CRC of plan to pickers material handlers Brilintal Rx at [facility] and then Full Rx from [facility] on Thursday. Pt's verbalized understanding. CRC notified Dr. Nagy of plan. Chester GRAHAM, RN Clinical Tenant Relations Coordinator Pager [phone] Problem Noted Date Diagnosed Date Conjunctival lesion [...] with 3.5 X 18 mm [facility] 2009 post abnormal nuc stress +IW, EF normal - Recurrent angina, CCS class III - Cardiac catheterization 06/03/2012: 2 vessel CAD (LAD and LCX), +FFR of both lesions s/p PCI to pOM1 (3.0 x 18 mm Xience JACINDA) and mLAD (3.0 x 20 mm Promus Element JACINDA) Immunizations Name Administration Dates Next Due Influenza (Novel [id number]) Injectable 05/24/2009 Influenza PF, Split 07/30/2013 Influenza Trivalent w/Preservative 06/15/2012 Influenza Vaccine, Whole 05/24/2009,06/21/2008 Pneumococcal Polysaccharide (Pneumovax 23) 05/24 Family History Medical History Relation Comments Heart Disease Brother 1 Heart Disease Brother 2 Diabetes Brother 3 Diabetes Brother 4 Hypertension Brother 5 Hypertension Brother 6 Hyperlipidemia Brother 7 Hyperlipidemia Brother 8 Heart Disease Father Myocardial Infarction Father [place], CABG Diabetes Mother Heart Disease Mother Hyperlipidemia [...] BMP w/fasting Glucose (06/10/2021 3:44 AM EDT) [facility] Glucose Fasting 195(H) 65 - 99 mg/dL [facility] Comment: ?Fasting* Glucose Interpretive [...] of Diabetes Mellitus, Position Statement from the [place] [employer]. ??Diabetes Care, Volume 33, Supplement 1, Aug 2009 Blood Urea Nitrogen 9(L) 10 - 20 mg/dL [facility] Creatinine 0.79(L) 0.80 - 1.50 mg/dL [facility] Sodium 134(L) 135 - 145 mmol/L [facility] Potassium 4.1 3.5 - 5.0 mmol/L [facility] Comment: Please note: ??Patients with WBC >100,000 may have falsely elevated Potassium levels. ??For accurate Potassium quantification in these patients send serum separator tube (gold top) for subsequent determinations. ??Contact the Clinical Chemistry Laboratory if there are any questions. Chloride 103 98 - 107 mmol/L [facility] Carbon Dioxide 18(L) 22 - 31 mmol/L [facility] Anion Gap 13 5 - 15 mmol/L [facility] Calcium 9.4 8.5 - 10.5 mg/dL [facility] Est Glomerular Filtration Rate 102 >=60 mL/min/1. 73 m?? [facility] Comment: This patient? s [...] In Lab Coni GROVER CHEMISTRY ORDERABLE S [facility] [place] [address] * (ABNORMAL) Hemoglobin A1c (03/15/2019 5:01 AM EDT) Hemoglobin A1c 6.8(H) 4.3 - 5.6 % [facility] Comment: Reference Range: 4.3 [...] Mellitus, Diabetes Care 2013; 36: Suppl. 1, C18-71 Estimated Average Glucose 148 mg/dL [facility] Comment: eAG equivalents for [...] into estimated average glucose values. ??Diabetes Care 2008:31(8):8882-3361. Blood specimen (specimen) 03/15/2019 5:01 AM EDT 03/15/2019 5:12 AM EDT Narrative Resulting Agency Comment Spec In Lab Siri Bush BOTTLE SORTER CHEMISTRY ORDERABL ES [facility] [place] [address] from Last 3 Months or Most Recently [...] is based on Patients wishes. Care Teams Rail Car Mechanic Relationship Specialty Start Date End Date Coni Lim MD [address] [place] [address] PCP - General 07/16/10
--- OUTSIDE RECORDS SUMMARY | 2024-04-30 18:18 | XMS_ITS | Encounter Summary ---
Author Organization [facility] [place] [address] Care Team Providers Care Slots Manager Name Role Phone Coni Lim MD Primary Care Provider [phone] Encounter Details Date Type Department Care Team (Late st Contact Info) Description 11/25/2021 Telephone Cardiology at [address] [address] Yessy Pugh Social History Tobacco Use Types [...] they received the ABSORB stent. Certified mail #[phone] documented in this encounter Plan of Treatment Not on file documented as of this encounter Visit Diagnoses Not on filedocumented in this encounter Care Teams Slots Manager Relationship Specialty Start Date End Date Coni Lim MD [address] [place] [address] PCP - General 07/16/10 documented as of this encounter
--- OUTSIDE RECORDS SUMMARY | 2024-04-30 18:18 | XMS_ITS | Encounter Summary ---
Author Organization [facility] Address [facility] [place] [address] Care Team Providers Care Blasting Helper Name Role Phone Coni Lim MD Primary Care Provider [phone] Encounter Details Date Type Department Care Team (Late st Contact Info) Description 04/07/2023 7:40 PM EDT Ancillary Procedure [place] [address] Patel Griggs MD [facility] [place] [address] Social History Tobacco Use Types Packs/Day Years [...] And Spine (04/07/2023 7:25 PM EDT) Narrative [facility] - 04/07/2023 7:25 PM EDT This exam is auto-finalizing. It's purpose is for storage only. Patel M Thadani MD [facility] FILM LIBRARY ORD ERABLES [place], [place] documented in this encounter Visit Diagnoses Not on filedocumented in this encounter Care Teams Blasting Helper Relationship Specialty Start Date End Date Coni Lim MD [address] [place] [address] PCP - General 07/16/10 documented as of this encounter
--- OUTSIDE RECORDS SUMMARY | 2024-04-30 18:18 | XMS_ITS | Encounter Summary ---
[place] [address] Care Team Providers Care Manager Housekeeping Name Role Phone Coni Lim MD Primary Care Provider [phone] Reason for Referral * Consultation (Routine) - Closed Specialty Diagnoses / Procedures Referred By Ruby garvin Referred To Contact General Surgery Diagnoses Nontoxic single thyroid nodule Kevin Landaverde MD [address] [place] [address] [address] [facility] [address] [place] [address] Referral ID Status Reason Start Date Expiration Date V isits Requested Visits Authorized [id number] Closed Consult, Test & Treat 01/30/2022 01/30/2023 1 1 Encounter Details Date Type Department Care Team (Late st Contact Info) Description 01/30/2022 Transcribe Orders [place] [id number] Kevin Landaverde MD [address] [place] [address] [place], [place] [id number] Nontoxic single thyroid nodule Social History Tobacco [...] goiter documented in this encounter Care Teams Manager Housekeeping Relationship Specialty Start Date End Date Coni Lim MD [address] [place] [address] PCP - General 07/16/10 documented as of this encounter
--- OUTSIDE RECORDS SUMMARY | 2024-04-30 18:18 | XMS_ITS | Encounter Summary ---
Author Organization [facility] Address [facility] [place] [address] Care Team Providers Care Cardiology Physician Assistant Name Role Phone Coni Lim MD Primary Care Provider [phone] Encounter Details Date Type Department Care Team (Late st Contact Info) Description 04/07/2023 [place]phone [place] [address] Patel Griggs MD [facility] [place] [address] Social History Tobacco Use Types Packs/Day Years [...] EDT Neurology Attending I spoke with caregivers [facility] There is no capacity here to accept [...] recommended trying to transfer the patient to [facility] Patel Griggs MD [place] [address] Pager #[phone] Email: [email or web address] documented in this encounter Plan of Treatment Not on file documented as of this encounter Visit Diagnoses Not on filedocumented in this encounter Care Teams Cardiology Physician Assistant Relationship Specialty Start Date End Date Coni Lim MD [address] [place] [address] PCP - General 07/16/10 documented as of this encounter
--- OUTSIDE RECORDS SUMMARY | 2024-04-30 18:18 | XMS_ITS | Encounter Summary ---
Author Organization [facility] Address [facility] [place] [address] Care Team Providers Care Stone Grader Name Role Phone Coni Lim MD Primary Care Provider [phone] Encounter Details Date Type Department Care Team (Late st Contact Info) Description 04/07/2023 7:30 PM EDT Ancillary Procedure [place] [address] Patel Griggs MD [facility] [place] [address] Social History Tobacco Use Types Packs/Day Years [...] And Spine (04/07/2023 7:22 PM EDT) Narrative [facility] - 04/07/2023 7:22 PM EDT This exam is auto-finalizing. It's purpose is for storage only. Patel M Thadani MD [facility] FILM LIBRARY ORD ERABLES [place], [place] documented in this encounter Visit Diagnoses Not on filedocumented in this encounter Care Teams Stone Grader Relationship Specialty Start Date End Date Coni Lim MD [address] [place] [address] PCP - General 07/16/10 documented as of this encounter
--- OUTSIDE RECORDS SUMMARY | 2024-04-30 18:18 | XMS_ITS | Encounter Summary ---
Author Organization [facility] Address [facility] [place] [address] Care Team Providers Care Supervisor Paint Name Role Phone Coni Lim MD Primary Care Provider [phone] Encounter Details Date Type Department Care Team (Late st Contact Info) Description 04/07/2023 External [place] [address] Social History Tobacco Use Types Packs/Day Years [...] on filedocumented in this encounter Care Teams Supervisor Paint Relationship Specialty Start Date End Date Coni Lim MD [address] [place] [address] PCP - General 07/16/10 documented as of this encounter
--- OUTSIDE RECORDS SUMMARY | 2024-04-30 18:18 | XMS_ITS | Encounter Summary ---
[place] [address] Care Team Providers Care Manufacturing Manager Name Role Phone Coni Lim MD Primary Care Provider Reason for Referral * Audiology Exam (Routine) - Authorized Specialty Diagnoses / Procedures Referred By Contac t Referred To Contact Audiology Diagnoses Bilateral hearing loss, unspecified hearing loss type Coni Lim MD [address] [email or web address] [address] [facility] [address] [place] [phone] Referral ID Status Reason Start Date Expiration Date Visits Requested Visits Authorized [id number] Authorized Specialty Service Requested PCP Updated and/or Approved 12/04/2023 06/06/2024 6 6 Encounter Details Date Type Department Care Team (Latest Contact Info) Description 12/24/2023 Transcribe Orders eDH Incoming Referrals [phone] Coni Lim MD [address] [email or web address], [place] [id number] Bilateral hearing loss, unspecified hearing loss type [...] type documented in this encounter Care Teams Manufacturing Manager Relationship Specialty Start Date End Date Coni Lim MD [address] [place] [address] PCP - General 07/16/10 documented as of this encounter
--- OUTSIDE RECORDS SUMMARY | 2024-04-30 18:18 | XMS_ITS | Encounter Summary ---
Author Organization [facility] Address [facility] [place] [address] Care Team Providers Care Classroom Technology Coach Name Role Phone Coni Lim MD Primary Care Provider [phone] Encounter Details Date Type Department Care Team (Late st Contact Info) Description 04/07/2023 7:25 PM EDT Ancillary Procedure [place] [address] Patel Griggs MD [facility] [place] [address] Social History Tobacco Use Types Packs/Day Years [...] Chest (04/07/2023 7:20 PM EDT) Narrative [facility] - 04/07/2023 7:20 PM EDT This exam is auto-finalizing. It's purpose is for storage only. Patel Griggs MD IM FILM LIBRARY ORD ERABLES [facility] [place], [place] documented in this encounter Visit Diagnoses Not on filedocumented in this encounter Care Teams Classroom Technology Coach Relationship Specialty Start Date End Date Coni Lim MD [address] [place] [address] PCP - General 07/16/10 documented as of this encounter
--- OUTSIDE RECORDS SUMMARY | 2024-04-30 18:18 | XMS_ITS | Encounter Summary ---
Author Organization [facility] Address [facility] [place] [address] Care Team Providers Care Buying Intern Name Role Phone Coni Lim MD Primary Care Provider [phone] Encounter Details Date Type Department Care Team (Late st Contact Info) Description 01/13/2022 Ancillary Procedure [place] [address] Cecilia Maza MD [facility] [place] [address] Social History Tobacco Use Types Packs/Day Years [...] Ultrasound Study (01/13/2022 12:00 AM EDT) Narrative [facility] - 02/25/2022 4:21 PM EDT This exam is auto-finalizing. It's purpose is for storage only. Cecilia Maza MD IMG FILM LIBRARY ORDERABLES [facility] [place], [place] documented in this encounter Visit Diagnoses Not on filedocumented in this encounter Care Teams Buying Intern Relationship Specialty Start Date End Date Coni Lim MD [address] [place] [address] PCP - General 07/16/10 documented as of this encounter
--- OUTSIDE RECORDS SUMMARY | 2024-04-30 18:18 | XMS_ITS | Encounter Summary ---
Author Organization [facility] Address [facility] [place] [address] Care Team Providers Care Digital Developer Name Role Phone Coni Lim MD Primary Care Provider [phone] Encounter Details Date Type Department Care Team (Late st Contact Info) Description 04/07/2023 7:35 PM EDT Ancillary Procedure [place] [address] Patel Griggs MD [facility] [place] [address] Social History Tobacco Use Types Packs/Day Years [...] Abdomen Pelvis (04/07/2023 7:23 PM EDT) Narrative [facility] - 04/07/2023 7:23 PM EDT This exam is auto-finalizing. It's purpose is for storage only. Patel M Thadani MD [facility] FILM LIBRARY ORD ERABLES [place] documented in this encounter Visit Diagnoses Not on filedocumented in this encounter Care Teams Digital Developer Relationship Specialty Start Date End Date Coni Lim MD [address] [place] [address] PCP - General 07/16/10 documented as of this encounter
--- OUTSIDE RECORDS SUMMARY | 2024-04-30 18:18 | XMS_ITS | Encounter Summary ---
Author Organization [facility] Address [facility] [place] [address] Care Team Providers Care Key Punch Operator Name Role Phone Coni Lim MD Primary Care Provider [phone] Encounter Details Date Type Department Care Team (Late st Contact Info) Description 11/22/2021 Ancillary Procedure [place] [address] Cecilia Maza MD [facility] [place] [address] Social History Tobacco Use Types Packs/Day Years [...] Ultrasound Study (11/22/2021 12:00 AM EDT) Narrative [facility] - 02/25/2022 4:20 PM EDT This exam is auto-finalizing. It's purpose is for storage only. Cecilia Maza MD IMG FILM LIBRARY ORDERABLES [facility] [place], [place] documented in this encounter Visit Diagnoses Not on filedocumented in this encounter Care Teams Key Punch Operator Relationship Specialty Start Date End Date Coni Lim MD [address] [place] [address] PCP - General 07/16/10 documented as of this encounter
--- OUTSIDE RECORDS SUMMARY | 2024-04-30 18:19 | XMS_ITS | Encounter Summary ---
Author Organization [facility] Address [facility] [place] [address] Care Team Providers Care Tourist Information Officer Name Role Phone Cnoi Lim MD Primary Care Provider [phone] Reason for Visit * Auth/Cert Specialty Diagnoses / Procedures Referred By Ruby garvin Referred To Contact Diagnoses Unstable angina Chest pain Procedures EMERGENCY IPI Referral ID Status Reason Start Date Expiration Date Visits Re quested Visits Authorized [id number] 1 1 Encounter Details Date Type Department Care Team (Late st Contact Info) Description 2021 7:02 PM EDT - 06/10/2021 6:29 PM EDT Hospital Encounter Intermediate [place] [id number] Zuleyka Hodgson MD [facility] [place] [address] Supa Alegria MD [facility] [place] [place] [address] Chest pain, unspecified type Discharge Disposition: Home [...] Romeo Coe Patient Age: 56 y.o. Language: Japanese Race: White Ethnicity: Not nor Admit date: 2021 Discharge date and time: 06/10/2021 5:40 PM Attending Physician: Supa Alegria MD Discharge Physician: Supa Alegria MD Follow-up Recommendations for Providers: Romeo Coe is a 56 year old male admitted for chest pain concerning for unstable angina. 1. ASCVD / Microvascular angina: [facility] 06/10/21 without obstructive CAD and with [...] Escobar APRN Sarah Hansen, PA-C Cardiovascular Medicine [phone] Discharge Diagnoses (Hospital Problems) and Secondary Diagnoses [...] ??? Conjunctival lesion Operations/Major Procedures: [facility] 06/10/21 Hemodynamics: Left Heart Pressures Resting: [...] 2011, LAD stent in 2012, RCA stent [id number]. His most recent coronary angiogram (2019) showed [...] since 2011 and last JACINDA to RCA [id number]. Last LHC 2019 with residual ~40% LAD [...] SOB prior to discharge. Follow up with physical sciences instructor, Dr. Gutierrez, was arranged. ?? Right??groin cellulitis, abscess with spontaneous drainage Patient noted to have right groin erythema consistent with cellulitis. He remained afebrile and without leukocytosis. Blood cultures obtained at OSH were NGTD at 2 days (spoke with microbiology at [facility] on 06/10/21). These were repeated at 06/08 [...] CTA chest was made. ?? Diabetes mellitus, zpo-cuchkyy-cvzcnsuet, uncontrolled A1c of 9.4%. Home metformin held for cath. Additional coverage with sliding scale and meal associated insulin. Hold metformin for 48 hours after contrast exposure. Diabetes management team consulted.Recommendations to continue metformin 1000mg BID and further management per PCP. Could consider SGLT2i. ?? HTN BP trend 12 hours prior to discharge were BP: (102-134)/(65-81) . He was continued on home sylamsdz76.5mg daily, metoprolol succinate 100mg daily and Imdur [...] Studies and Lab Data: Blood cultures at [facility] and [facility]. Discharge Conditions/Prognosis: Alert and oriented x 3, ambulatory-independent. Ambulated without chest pain or SOB prior to discharge. Discharge to: Home. Updated Allergies/ADRs: Allergies Allergen Reactions ??? Thallium-201 Severe cardiac event ??? Lisinopril Other (See Comments) cough ??? Paper Tape [Adhesive Tape] Rash Immunizations Given this Hospitalization: Immunization History Administered Date(s) Administered ??? Influenza PF, Split 07/30/2013 ??? Influenza Vaccine (Novel) [id number], Injectable 05/24/2009 ??? Influenza Vaccine w/Preservative, Split [...] of 8AM-5PM please call the Cardiology Clinic [phone] to speak with a nurse. All other hours please call the Hospital Interior Design Coordinator [phone] and ask to speak to the manager program management on-call. Return to work: One week Driving: [...] Time PCP COLEEN Wen [address] [place] [address] [phone] Jun 20 10:00am Head Counselor Dr. Gutierrez [facility] Cardiology [phone] ThursdayJul 23 11:40am Discharge References/Attachments Angina (Japanese) Discussed with MD Coni Escobar PA-C Pager #[phone] 06/10/2021 documented in this encounter Discharge Instructions [...] of 8AM-5PM please call the Cardiology Clinic [phone] to speak with a nurse. All other hours please call the Hospital Interior Design Coordinator [phone] and ask to speak to the manager program management on-call. Return to work: One week Driving: [...] Time PCP COLEEN Wen [address] [place] [address] Jun 20 10:00am Head Counselor Dr. Gutierrez [facility] Cardiology [phone] ThursdayJul 23 11:40am * Patient Instructions* Coni Lwe PA - 06/10/2021 3:07 PM EDT * Attachments The following attachments cannot be sent through Care Everywhere. * Angina (Japanese) documented in this encounter Medications at Time [...] Transport initiated/not confirmed: Spoke with NOELLE from [facility] who initiated a ride with their scheduling department/dispatch to pick patient up at discharge 06/10/21 from the MAIN entrance at ~18:00 en route to HOME UPDATE 16:06 Discharge Transportation confirmed: Spoke with ELMIRA from [facility] who confirmed a taxi truck driver provided by school transportation directorULISES will arrive to pick patient up at discharge 06/10/21 from the MAIN entrance at 18:00 en route to HOME. Bedside nurse notified via eDH chat. [facility] PHONE: [phone] * Supa Alegria MD - 06/10/2021 8:04 AM EDT Images from the original note were not included. Inpatient Cardiology Progress Note Patient Name: Romeo Coe Service: [employer] DIRECT[employer] / PA Responsible Attending: Supa Alegria MD [...] reports resolution. In agreement for [facility] today. Continues on IV antibiotics for [...] since 2011 and last JACINDA to RCA [id number]. Last LHC 2018 with residual ~40% LAD [...] chest at this time ?? Diabetes mellitus, bhh-iwxolht-iuvguhvcc, uncontrolled A1c of 9.4% Hold home metformin [...] Discussed with MD Coni Escobar PA-C Pager #[phone] 06/10/2021 Cardiology Attending Note I have seen and examined the patient. I agree with the findings above. Of note, he is feeling well today. His groin site shows no evidence of fluid collection. Blood cultures show no growth. We will proceed with coronary angiography and possible PCI Supa Alegria MD [facility] Total time spent on review [...] Progress Note Patient Name: Romeo Coe Service: [employer] DIRECT[employer] / PA Responsible Attending: Supa Alegria MD Reason for continued hospitalization: Evaluation and management of unstable angina- cath Right groin cellulitis-IV abx Medication adjustment Active Problems: Active Hospital Problems Diagnosis ??? Unstable angina ??? Chest pain ??? Smoker ??? CAD (coronary artery disease) -Coronary Angio 07/29/2013: 65% (FFR 0.74) mid LAD lesion s/p PCI with 3.5 X 18 mm JACINDA - [facility] 2009 post abnormal nuc stress +IW, [...] CTA at this time ?? Diabetes mellitus, jxb-jwbbwvm-qjiffiuwa Poor control with A1c of 9.4 Carb [...] ?Routine Diet: Daily Healthy Menu Choices/Cardiac diet ([facility]-Diet) CHO counting level 2 DVT Prophylaxis: already [...] proceed tomorrow on antibiotics. Supa Alegria MD [facility] Total time spent on review [...] PCP: Coni Lim MD PCP phone number: [phone] Date of Admission: 2021 ( Hospital Day 0 days ) Attending:Zuleyka Hodgson MD Patient Active Problem List Diagnosis ??? ','Unstable angina ??? Chest pain ??? Smoker ??? CAD (coronary artery disease) Overview Note: -Coronary Angio 07/29/2013: 65% (FFR 0.74) mid LAD lesion s/p PCI with 3.5 X 18 mm JACINDA - [facility] 2009 post abnormal nuc stress +IW, [...] of Onset ??? Myocardial Infarction Father 46 DC, CABG ??? Heart Disease Father ??? Diabetes [...] Lives with and daughter at home in [place], [place]. He is disabled now. He used [...] in the last 7068 hours. Invalid input(s): HPQBRVQFRDO7C No results for input(s): POCGLU in the last 168 hours. Heme No results for input(s): LDH, HAPTOGLOBIN, URICACID in the last 168 hours. ABG (Arterial Blood Gas) No results found for: PHART, PO2ART, AZF0YXT, WNM2HYW Microbiology: Microbiology Results (Last 30 days) No [...] heparin (porcine) infusion Recent diagnostics: [facility] (2019): Left Main The left main [...] Obtain Echo - Serial cardiac enzymes - phototypesetting equipment monitor - Cardiac cath in a.m. - [...] infection. No hypoxia or tachycardia #Diabetes mellitus, wns-zfweshv-xvgrxjyid, poor control with A1c of 9.4 -Diabetic [...] #Routine Diet: Daily Healthy Menu Choices/Cardiac diet ([facility]-Diet) 75/75/90 CHO counting level 3 DVT Prophylaxis: already on heparin drip Code Status: Attempt Cardiopulmonary Resuscitation - Inpatient Dispo: Pending clinical course Isaiah Hoyos MD Pager #[phone] 06/08/21 8:56 PM documented in this encounter [...] cath without complications. Coni Lew PA-C Pager #[phone] 06/10/2021 * Initial Assessments - Ruthie Macias RN - 06/10/2021 3:39 PM EDT Office of Care Management Initial Assessment Ruthie Macias RN reviewed record and discussed patient with Care Team. Source of Information: Team, bedside nurse, medical record, and Patient Introduced self/reviewed role; services accepted. Reason for Hospitalization: unstable angina Last COVID test: Lab Results Component Value Date [id number] Not Detected 06/09/2021 Past medical History: Past [...] dyer would be surrogate decision maker per ID surrogatedecision making law. (Only good for 180 days) Any patient receiving care at [facility] must abide by ID law. The hierarchy for surrogate decision making [...] (i) The agent with financial power of computer support specialist or a conservator appointed in accordance with [...] cane - straight Home Address confirmed as: [address] [place] [address] Social & Family Supports: All names listed below confirmed with patient as current and correct Extended Emergency Contact Information Primary Emergency Contact: Dasia Coe Address: [address] [place] [address] Mobile Relation: Spouse Current Care Provided by: [...] MEDICAID [place] Prescription Coverage: Yes Preferred Pharmacy: [facility] [place], [place] - [address] [place] [address] [address] [facility] [address] [place] Status: Patient is a : No Primary Care Provider: Coni Lim MD [phone] Patient/Caregiver Goals of Treatment: dc to home [...] ambulation, driving. He drove his car to [facility] and then required a BLS to transport here to [facility]. He will require assistance in finding A ride to home when he is dced. Pt has supports in place to accessthe necessary care and or follow up after dishcharge and there are no RN CM or SEMICONDUCTOR DEVELOPMENT TECHNICIAN needs that are identified at this time Plan: dc to home A member of the Care Management team will continue to monitor progress, follow for continuity of care and assist with transition of care planning. Ruthie Macias RN CM Ext [phone] Pager [phone] * Consult Note - Elena Zaragoza APRN [...] management and to provide a review of ocean transportation intermediary diabetes care. Diabetes History: Romeo Coe has [...] QPM ??? [OCT Hold] Vancomycin Level - [facility] Order Reminder NOT APPLICABLE Once ??? [OCT [...] of Onset ??? Myocardial Infarction Father 46 DC, CABG ??? Heart Disease Father ??? Diabetes [...] 10 gm carb ratio for each meal) skilled nursing diabetes care: Medications - Outpatient treatment regimen recommendations pending based on the hospital course. Monitoring - continue BG tid ac & hs Diet - low fat/low carb diet Exercise - weight-bearing exercise 30 min/day, as tolerated Thank you for allowing us to provide care for your patient Elena Zaragoza APRN Endocrinology Pager [phone] 70 minutes of this 80 minute visit was spent with the patient in counseling on diabetes and treatment plan, reviewing all glucose and insulin data as well as relevant laboratory results with the patient, and coordination of care on the inpatient unit * Brief Op Note - Jose Trimble MD - 06/10/2021 11:37 AM EDT Brief Operative Note Patient Name: Romeo Coe : [id number] MR#: [id number] Case Date: 06/10/2021 Head Counselor: * Jose Trimble MD - Primary * Syed Solorio MD - Fellow Preoperative diagnosis: nstemi Postoperative diagnosis:NSTEMI with stable coronary anatomy Preliminary Cardiac Catheterization Procedure Note: Procedure(s) performed: Coronary Angiography, Left Heart Cath Baseline Frailty Assessment: Definitions from [place] Study of Health and Aging Clinical Frailty [...] without apparent complications. Full report to follow. JSOE TRIMBLE MD customs and immigration officer Pager [phone] * Plan of Care - Fabienne Morelos RN - 06/09/2021 2:57 PM EDT OUTCOME EVALUATION NOTE: OUTCOME SUMMARY: A/O x4. VSS on RA. NSR on tele. Heparin gtt maintained per protocol.IV zosyn and vanc given per protocol. (see MAR). BG elevated, MD notified, insulin scale adjusted. 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 [place] very nauseous after he went to the [...] further details. Isaiah Hoyos MD 2021 Pager [phone] documented in this encounter Plan of Treatment [...] * POCT Glucose (06/10/2021 4:20 PM EDT) [facility] Glucose, POC 177 65 - 199 mg/dL [facility] Comment: Supplemental ranges: <140 mg/dL before meals <180 mg/dL all other times of the day Blood 06/10/2021 4:20 PM EDT 06/10/2021 4:20 PM EDT Supa Alegria MD POINT OF CARE TEST O RDERABLES [facility] [place] [address] * Troponin (06/10/2021 1:07 PM EDT) [facility] Troponin-T <0.01 0.00 - 0.00 ng/mL [facility] Comment: The 99th percentile for Troponin T is less than 0.01 ng/mL, any detectable cTnT concentration using this assay should be considered elevated. According to the third universal definition of myocardial infarction the following criteria with a clinical presentation consistent with acute myocardial ischemia meets the diagnosis for a myocardial infarction (DC). Detection of a rise and/or fall of cTnT, with at least one value greater than the 99th percentile (> or = 0.01) and with at least one of the following ?? Symptoms of ischemia ?? New or presumed new significant UX-eorxldm-W wave (ST-T) changes or new left bundle [...] additional sample may be indicated. Reference: Third [place] Definition of Myocardial Infarction. Journal of the [place] College of Cardiology 2012;60:1581-98 Blood 06/10/2021 1:07 PM EDT 06/10/2021 1:18 PM EDT Narrative Resulting Agency Comment Spec In Lab Isaiah Hoyos MD CHEMISTRY ORDERABLE S Performing Organization Address City/[facility]/ZIP Co de Phone Number [facility] [place] [address] * POCT Glucose (06/10/2021 11:58 AM EDT) Pathologist [facility] Glucose, POC 175 65 - 199 mg/dL [facility] Comment: Supplemental ranges: <140 mg/dL before meals <180 mg/dL all other times of the day Blood 06/10/2021 11:5 8 AM EDT 06/10/2021 11:58 AM EDT Supa Alegria MD POINT OF CARE TEST O RDERABLES [facility] [place] [address] * CARDIAC CATHETERIZATION (06/10/2021 11:45 AM EDT) Anatomical Region Laterality Modality Other Narrative 06/10/2021 12:54 PM EDT ?[facility] ? Cardiac Catheterization/Intervention Report ? Patient Name: Coe, Romeo A. ? Procedure Date: 06/10/2021 ? A #: [id number] ? Primary Physician: Trimble, Jose V ? Case #: [id number] ? File Name: [id number] ? Catheterization Order Number: [id number] ? [facility] ? Final Report [place], [place] ? Patient Name: ? Romeo Coe ? ID#: ?[id number] ? : ?1965 ? Procedure Date: ? [...] was ?designated as ASA Class II. The [facility] clinical frailty scale is 2: Well. [...] procedure was Urgent. The indication for ?the photo lab technician visit is worsening angina. Chest [...] Procedure Note Jose Trimble MD - 06/10/2021 [facility] Cardiac Catheterization/Intervention Report Patient Name: Coe Romeo PopNatalie Procedure Date: 06/10/2021 A #: [id number] Primary Physician: Jose Trimble V Case #: [id number] File Name: [id number] Catheterization Order Number: [id number] [facility] FinalReport [place], [place] Patient Name: Romeo Leyva Laquita ID#:[id number] :1965 Procedure Date: June 10, 2021 Case [...] was designated as ASA Class II. The [facility] clinical frailty scale is 2:Well. Diagnostic [...] diagnostic procedure was Urgent. The indicationfor the photo lab technician visit is worsening angina. Chest [...] units of heparin were administered. A total to862ri of Omnipaque were opened, 38cc of Omnipaque were administered fzz66om of Omnipaque were wasted. Radiation: Fluoro time [...] Glucose, POC 191 65 - 199 mg/dL [facility] Comment: Supplemental ranges: <140 mg/dL before meals <180 mg/dL all other times of the day Blood 06/10/2021 7:59 AM EDT 06/10/2021 7:59 AM EDT Supa Alegria MD POINT OF CARE TEST O RDERABLES [facility] [place] [address] * (ABNORMAL) BMP w/fasting Glucose (06/10/2021 3:44 AM EDT) Glucose Fasting 195(H) 65 - 99 mg/dL [facility] Comment: ?Fasting* Glucose [...] of Diabetes Mellitus, Position Statement from the [place] Diabetes Association. ??Diabetes Care, Volume 33, Supplement 1, Aug 2009 Blood Urea Nitrogen 9(L) 10 - 20 mg/dL [facility] Creatinine 0.79(L) 0.80 - 1.50 mg/dL [facility] Sodium 134(L) 135 - 145 mmol/L [facility] Potassium 4.1 3.5 - 5.0 mmol/L [facility] Comment: Please note: ??Patients with WBC >100,000 may have falsely elevated Potassium levels. ??For accurate Potassium quantification in these patients send serum separator tube (gold top) for subsequent determinations. ??Contact the Clinical Chemistry Laboratory if there are any questions. Chloride 103 98 - 107 mmol/L [facility] Carbon Dioxide 18(L) 22 - 31 mmol/L [facility] Anion Gap 13 5 - 15 mmol/L [facility] Calcium 9.4 8.5 - 10.5 mg/dL [facility] Est Glomerular Filtration Rate 102 >=60 mL/min/1. 73 m?? [facility] Comment: This patient? s [...] In Lab Coni GROVER CHEMISTRY ORDERABLE S [facility] [place] [address] * Troponin (06/10/2021 3:44 AM EDT) Troponin-T <0.01 0.00 - 0.00 ng/mL [facility] Comment: The 99th percentile for Troponin T is less than 0.01 ng/mL, any detectable cTnT concentration using this assay should be considered elevated. According to the third universal definition of myocardial infarction the following criteria with a clinical presentation consistent with acute myocardial ischemia meets the diagnosis for a myocardial infarction (DC). Detection of a rise and/or fall of cTnT, with at least one value greater than the 99th percentile (> or = 0.01) and with at least one of the following ?? Symptoms of ischemia ?? New or presumed new significant WE-mgkhqay-A wave (ST-T) changes or new left bundle [...] additional sample may be indicated. Reference: Third [place] Definition of Myocardial Infarction. Journal of the [place] College of Cardiology 2012;60:1581-98 Blood Venous Draw / Unknown 06/10/2021 3:44 AM EDT 06/10/2021 4:06 AM EDT Narrative Resulting Agency Comment Spec In Lab Isaiah Hoyos MD CHEMISTRY ORDERABLE S Performing Organization Address [facility] Co de Phone Number [facility] [place] [address] * Green Tube HOLD (06/10/2021 3:44 AM EDT) Green Hold Sample in lab. [facility] Blood Venous Draw / Unknown 06/10/2021 3:44 AM EDT 06/10/2021 4:03 AM EDT Isaiah Hoyos MD CHEMISTRY ORDERABLE S Performing Organization Address [facility] Co de Phone Number [facility] [place] [address] * POCT Glucose (06/10/2021 3:44 AM EDT) Glucose, POC 191 65 - 199 mg/dL [facility] Comment: Supplemental ranges: <140 mg/dL before meals <180 mg/dL all other times of the day Blood 06/10/2021 3:44 AM EDT 06/10/2021 3:44 AM EDT Supa Alegria MD POINT OF CARE TEST O RDERABLES Performing Organization Address [facility] Co de Phone Number [facility] [place] [address] * Heparin (unfractionated) Level (06/10/2021 3:44 AM EDT) [facility] UF Heparin 0.38 IU/mL [facility] Comment: Guidelines for therapeutic [...] MD HEMATOLOGY ORDERABL ES Performing Organization Address [facility]/ZIP Co de Phone Number [facility] [place] [address] * (ABNORMAL) Differential, Automated (06/10/2021 3:44 AM EDT) [facility] Neutrophil % 55.0 % [facility] Neutrophil Absolute 4.98 1.70 - 6.10 x10(3)/mc L [facility] Lymph % 29.1 % [facility] Lymphocytes Abs 2.6 0.9 - 3.2 x10(3)/[facility] Monocyte % 7.5 % [facility] Monocyte Abs 0.7 0.3 - 0.9 x10(3)/[facility] Eos % 5.9 % [facility] Eosinophils Abs 0.5(H) 0.0 - 0.4 x10(3)/[facility] Basophil % 1.1 % [facility] Baso Absolute 0.1 0.0 - 0.1 x10(3)/[facility] Immature Gran % 1.40 % [facility] Comment: Immature granulocytes(IG's)percentage and absolute count will include metamyelocytes, myelocytes, and promyelocytes. Blood smears from CBCs yielding IG's will be scanned manually for concordance. If this scan disagrees with the automated IG or if promyelocytes are noted, a manual differential will be performed. Immature Gran Absolute 0.13(H) 0.00 - 0.04 x10(3)/[facility] Blood 06/10/2021 3:44 AM EDT 06/10/2021 4:03 AM EDT Narrative Resulting Agency Comment Spec In Lab Isaiah Hoyos MD HEMATOLOGY ORDERABL ES [facility] [place] [address] * Hemogram (06/10/2021 3:44 AM EDT) White Blood Cell 9.0 4.0 - 9.5 x10(3)/[facility] Red Blood Cell 4.97 4.58 - 5.54 x10(6)/[facility] Hemoglobin 14.2 13.7 - 16.5 g/dL [facility] Hematocrit 42.8 40.5 - 48.5 % [facility] Mean Cell Volume 86.1 82.9 - 93.1 fL [facility] Mean Cell Hemoglobin 28.6 27.5 - 32.1 pg [facility] Mean Cell Hemoglobin Concentration 33.2 32.0 - 35.7 g/dL [facility] Platelet 251 145 - 357 x10(3)/[facility] LABORATORY RDW Standard Deviation 40.5 36.0 - 45.0 [facility] LABORATORY RDW coefficient of variation 13.0 11.4 - 13.8 % [facility] LABORATORY Mean Platelet Volume 10.5 7.6 - 12.9 [facility] LABORATORY NRBC% auto 0.0 % [facility] LABORATORY NRBC Absolute 0.000 0.000 - 0.000 x10(3)/[facility] LABORATORY Blood 06/10/2021 3:44 AM EDT 06/10/2021 4:03 AM EDT Narrative Resulting Agency Comment Spec In Lab Isaiah Hoyos MD HEMATOLOGY ORDERABL ES Performing Organization Address City/[facility]/ZIP Co de Phone Number [facility] [place] [address] * POCT Glucose (06/09/2021 11:57 PM EDT) Glucose, POC 147 65 - 199 mg/dL [facility] Comment: Supplemental ranges: <140 mg/dL before meals <180 mg/dL all other times of the day Blood 06/09/2021 11:5 7 PM EDT 06/09/2021 11:57 PM EDT Supa Alegria MD POINT OF CARE TEST O RDERABLES Performing Organization Address City/[facility]/ZIP Co de Phone Number [facility] [place] [address] * POCT Glucose (06/09/2021 8:06 PM EDT) Glucose, POC 193 65 - 199 mg/dL [facility] Comment: Supplemental ranges: <140 mg/dL before meals <180 mg/dL all other times of the day Blood 06/09/2021 8:06 PM EDT 06/09/2021 8:06 PM EDT Supa Alegria MD POINT OF CARE TEST O RDERABLES Performing Organization Address City/[facility]/ZIP Co de Phone Number [facility] [place] [address] * Troponin (06/09/2021 5:47 PM EDT) Troponin-T <0.01 0.00 - 0.00 ng/mL [facility] Comment: The 99th percentile for Troponin T is less than 0.01 ng/mL, any detectable cTnT concentration using this assay should be considered elevated. According to the third universal definition of myocardial infarction the following criteria with a clinical presentation consistent with acute myocardial ischemia meets the diagnosis for a myocardial infarction (DC). Detection of a rise and/or fall of cTnT, with at least one value greater than the 99th percentile (> or = 0.01) and with at least one of the following ?? Symptoms of ischemia ?? New or presumed new significant CK-djsdyxe-J wave (ST-T) changes or new left bundle [...] additional sample may be indicated. Reference: Third [place] Definition of Myocardial Infarction. Journal of the [place] [employer] 2012;60:1581-98 Blood 06/09/2021 5:47 PM EDT 06/09/2021 6:02 PM EDT Narrative Resulting Agency Comment Spec In Lab Isaiah Hoyos MD CHEMISTRY ORDERABLE S Performing Organization Address [facility]/ZIP Co de Phone Number [facility] [place] [address] * (ABNORMAL) POCT Glucose (06/09/2021 4:40 PM EDT) Glucose, POC 200(H) 65 - 199 mg/dL [facility] Comment: Supplemental ranges: <140 mg/dL before meals <180 mg/dL all other times of the day Blood 06/09/2021 4:40 PM EDT 06/09/2021 4:40 PM EDT Supa Alegria MD POINT OF CARE TEST O RDERAAIRAM Performing Organization Address [facility] Co de Phone Number [facility] [place] [address] * (ABNORMAL) POCT Glucose (06/09/2021 3:02 PM EDT) Glucose, POC 209(H) 65 - 199 mg/dL [facility] Comment: Supplemental ranges: <140 mg/dL before meals <180 mg/dL all other times of the day Blood 06/09/2021 3:02 PM EDT 06/09/2021 3:02 PM EDT Supa Alegria MD POINT OF CARE TEST O BOBERAAIRAM Performing Organization Address [facility] Co de Phone Number [facility] [place] [address] * ECHO COMPLETE W CONTRAST (06/09/2021 1:52 PM EDT) Anatomical Region Laterality Modality Other 06/09/2021 Narrative 06/09/2021 2:16 PM EDT Procedure: ?Transthoracic Echocardiogram Patient: ?LAQUITA DOHERTY A ? (Age): 1965(56y) Med Rec#: ? [id number] ?Sex: ?M ? Site Loc: ? [facility] ?Ht / Wt: ??177(cm)/114(kg) Pt. Loc: ?CC[facility] ? BSA: ?2.29 Study Date: ?? 06/09/2021 ?Pt. Type: Inpatient Tape: ? Referring: ALTUJJARMOHAMMAD Reading: Zuleyka Hodgson ([id number]) Foil Stamp Operator: Ortiz Sandoval Diagnosis: *Chest pain, unspecified [...] Vmax ?0.67 ? m/sec ? MV deceleration vbei494.55 ? msec ? MV A-wave Vmax ?0.48 [...] Patient: LAQUITA Pop (Age): 1965(56y) Med Rec#: [id number] Sex: M Site Loc: [facility] Ht / Wt: 177(cm)/114(kg) Pt. Loc: [facility] BSA: 2.29 Study Date: 06/09/2021 Pt. Type: Inpatient Tape: Referring: ALTUJJARMOHAMMAD Reading: Zuleyka Hodgson ([id number]) Foil Stamp Operator: Ortiz Sandoval Diagnosis: *Chest pain, unspecified [...] MV E-wave Vmax 0.67 m/sec MV deceleration punv058.55 msec MV A-wave Vmax 0.48 m/sec MV [...] Glucose, POC 258(H) 65 - 199 mg/dL [facility] Comment: Supplemental ranges: <140 mg/dL before meals <180 mg/dL all other times of the day Blood 06/09/2021 11:4 9 AM EDT 06/09/2021 11:49 AM EDT Supa Alegria MD POINT OF CARE TEST O RDERABLES [facility] [place] [id number] * Troponin (06/09/2021 11:30 AM EDT) [facility] Troponin-T <0.01 0.00 - 0.00 ng/mL [facility] Comment: The 99th percentile for Troponin T is less than 0.01 ng/mL, any detectable cTnT concentration using this assay should be considered elevated. According to the third universal definition of myocardial infarction the following criteria with a clinical presentation consistent with acute myocardial ischemia meets the diagnosis for a myocardial infarction (DC). Detection of a rise and/or fall of cTnT, with at least one value greater than the 99th percentile (> or = 0.01) and with at least one of the following ?? Symptoms of ischemia ?? New or presumed new significant DF-shmyffh-X wave (ST-T) changes or new left bundle [...] additional sample may be indicated. Reference: Third [place] Definition of Myocardial Infarction. Journal of the [place] [employer] 2012;60:1581-98 Blood 06/09/2021 11:3 0 AM EDT 06/09/2021 11:44 AM EDT Narrative Resulting Agency Comment Spec In Lab Isaiah Hoyos MD CHEMISTRY ORDERABLE S Performing Organization Address [facility] de Phone Number [facility] [place] [address] * Heparin (unfractionated) Level (06/09/2021 11:30 AM EDT) UF Heparin 0.32 IU/mL [facility] Comment: Guidelines for therapeutic [...] MD HEMATOLOGY ORDERABLE S Performing Organization Address [facility] Co de Phone Number [facility] [place] [address] * (ABNORMAL) POCT Glucose (06/09/2021 8:03 AM EDT) Glucose, POC 233(H) 65 - 199 mg/dL [facility] Comment: Supplemental ranges: <140 mg/dL before meals <180 mg/dL all other times of the day Blood 06/09/2021 8:03 AM EDT 06/09/2021 8:03 AM EDT Supa Alegria MD POINT OF CARE TEST O RDERABLES [facility] [place] [address] * (ABNORMAL) Differential, Automated (06/09/2021 5:50 AM EDT) Neutrophil % 56.8 % [facility] Neutrophil Absolute 4.64 1.70 - 6.10 x10(3)/ L [facility] Lymph % 27.0 % [facility] Lymphocytes Abs 2.2 0.9 - 3.2 x10(3)/ L [facility] Monocyte % 8.6 % [facility] Monocyte Abs 0.7 0.3 - 0.9 x10(3)/ L [facility] Eos % 5.6 % [facility] Eosinophils Abs 0.5(H) 0.0 - 0.4 x10(3)/ L [facility] Basophil % 0.9 % [facility] Baso Absolute 0.1 0.0 - 0.1 x10(3)/ L [facility] Immature Gran % 1.10 % [facility] Comment: Immature granulocytes(IG's)percentage and absolute count will include metamyelocytes, myelocytes, and promyelocytes. Blood smears from CBCs yielding IG's will be scanned manually for concordance. If this scan disagrees with the automated IG or if promyelocytes are noted, a manual differential will be performed. Immature Gran Absolute 0.09(H) 0.00 - 0.04 x10(3)/mc L [facility] Blood 06/09/2021 5:50 AM EDT 06/09/2021 6:06 AM EDT Narrative Resulting Agency Comment Spec In Lab Isaiah Hoyos MD HEMATOLOGY ORDERABL ES Performing Organization Address City/[facility]/ZIP Co de Phone Number [facility] [place] [address] * Hemogram (06/09/2021 5:50 AM EDT) White Blood Cell 8.2 4.0 - 9.5 x10(3)/[facility] LABORATORY Red Blood Cell 4.87 4.58 - 5.54 x10(6)/[facility] LABORATORY Hemoglobin 14.1 13.7 - 16.5 g/dL [facility] Hematocrit 42.0 40.5 - 48.5 % [facility] Mean Cell Volume 86.2 82.9 - 93.1 [facility] LABORATORY Mean Cell Hemoglobin 29.0 27.5 - 32.1 [facility] LABORATORY Mean Cell Hemoglobin Concentration 33.6 32.0 - 35.7 g/dL [facility] Platelet 240 145 - 357 x10(3)/[facility] LABORATORY RDW Standard Deviation 40.7 36.0 - 45.0 [facility] LABORATORY RDW coefficient of variation 12.9 11.4 - 13.8 % [facility] Mean Platelet Volume 10.9 7.6 - 12.9 [facility] LABORATORY NRBC% auto 0.0 % [facility] NRBC Absolute 0.000 0.000 - 0.000 x10(3)/[facility] LABORATORY Blood 06/09/2021 5:50 AM EDT 06/09/2021 6:06 AM EDT Narrative Resulting Agency Comment Spec In Lab Isaiah Hoyos MD HEMATOLOGY ORDERABL ES Performing Organization Address City/[facility]/ZIP Co de Phone Number [facility] [place] [address] * Troponin (06/09/2021 5:50 AM EDT) Pathologist [facility] Troponin-T <0.01 0.00 - 0.00 ng/mL [facility] Comment: The 99th percentile for Troponin T is less than 0.01 ng/mL, any detectable cTnT concentration using this assay should be considered elevated. According to the third universal definition of myocardial infarction the following criteria with a clinical presentation consistent with acute myocardial ischemia meets the diagnosis for a myocardial infarction (DC). Detection of a rise and/or fall of cTnT, with at least one value greater than the 99th percentile (> or = 0.01) and with at least one of the following ?? Symptoms of ischemia ?? New or presumed new significant BP-bphnrbw-J wave (ST-T) changes or new left bundle [...] additional sample may be indicated. Reference: Third [place] Definition of Myocardial Infarction. Journal of the [place] [employer] 2012;60:1581-98 Blood 06/09/2021 5:50 AM EDT 06/09/2021 6:05 AM EDT Narrative Resulting Agency Comment Spec In Lab Isaiah Hoyos MD CHEMISTRY ORDERABLE S [facility] [place] [address] * Heparin (unfractionated) Level (06/09/2021 5:50 AM EDT) Pathologist [facility] UF Heparin 0.31 IU/mL [facility] Comment: Guidelines for therapeutic [...] MD HEMATOLOGY ORDERABL ES Performing Organization Address [facility] de Phone Number [facility] [place] [address] * Blood culture (06/09/2021 5:50 AM EDT) Blood Culture No growth at 5 days. [facility] Blood ANTECUBITAL REGION STRUCTURE / Unknown 06/09/2021 5:50 AM EDT 06/09/2021 10:08 AM EDT Comment:#1 Narrative Resulting Agency Comment Spec In Lab Isaiah Hoyos MD MICROBIOLOGY - BLOO D ORDERABLES Performing Organization Address [facility] de Phone Number [facility] [place] [address] * Lipid Panel (Reflex Direct LDL) (06/09/2021 5:50 AM EDT) Cholesterol, Total 207 mg/dL [facility] Comment: Lower Risk: <200 mg/dL Average Risk: 200-239 mg/dL Higher Risk: >vp=187 mg/dL Triglyceride 235 mg/dL [facility] Comment: Average Risk/Lower Risk: <150 mg/dL Borderline High Risk: 150-199 mg/dL High Risk: 200-499 mg/dL Very High Risk: >mk=575 mg/dL HDL Cholesterol 29 mg/dL [facility] Comment: Males: ?? Higher Risk: <40 mg/dL Females: ?? Higher Risk: <50 mg/dL LDL Cholesterol 131 mg/dL [facility] Comment: Lowest Risk: <100 mg/dL Lower Risk: 100-129 mg/dL Borderline High Risk: 130-159 mg/dL High Risk: 160-189 mg/dL Very High Risk: >dy=954 mg/dL Cholesterol/HDL Ratio 7.1 ratio [facility] Lipid Interpretation See Note [facility] Comment: Lipid management should be guided by a patient? s ASCVD risk, goals and preferences. ACC/AHA Guidelines recommend high intensity statin if clinical ASCVD or LDL greater than or equal to 190 mg/dL. http://LookIt.[place] Approach/XMK-UYN-Nllcrlaqm Adults aged 40-75 with LDL 70-189 mg/dL should have their 10 year ASCVD risk estimated with the ACC/AHA ASCVD risk hospitalist medical director http://tools.acc.org/BFPXT-Znhe-Gkyxpwdjt/ Statin should be discussed if risk greater [...] Lab Isaiah Hoyos MD CHEMISTRY ORDERABLE S [facility] [place] [address] * COVID-19 PCR (06/09/2021 5:45 AM EDT) SARS-CoV-2 RNA (Rapid) Not Detected Not Detected [facility] Comment: This result should [...] using the Simplexa COVID-19 Direct Assay by [employer] as authorized by the FDA issued Emergency [...] fact sheets at the following FDA website: https://www.fda.gov/medical-devices/ecjvhwpivws-ncimrsu-1940-olzxd-88-egaelfhrh- use-a wcqiyzegucnia-dphdeah-mxgqkjc/dgxhx-ngofsxlpeoh-irpl SARS-CoV-2 Source [employer] Swab MA RY [facility] Nasopharyngeal Swab 06/09/20 5:45 AM EDT 06/10/2021 6:15 AM EDT Comment:Symptoms->Surveillan ce Narrative Resulting Agency Comment Spec In Lab Isaiah Hoyos MD MICROBIOLOGY - GENE RAL ORDERABLES Performing Organization Address [facility] Co de Phone Number [facility] [place] [address] * (ABNORMAL) POCT Glucose (06/09/2021 4:20 AM EDT) Glucose, POC 224(H) 65 - 199 mg/dL [facility] Comment: Supplemental ranges: <140 mg/dL before meals <180 mg/dL all other times of the day Blood 06/09/2021 4:20 AM EDT 06/09/2021 4:20 AM EDT Supa Alegria MD POINT OF CARE TEST O RDERABLES Performing Organization Address [facility] Co de Phone Number [facility] [place] [address] * (ABNORMAL) POCT Glucose (06/09/2021 12:35 AM EDT) Glucose, POC 346(H) 65 - 199 mg/dL [facility] Comment: Supplemental ranges: <140 mg/dL before meals <180 mg/dL all other times of the day Blood 06/09/2021 12:3 5 AM EDT 06/09/2021 12:35 AM EDT Zuleyka Hodgson MD POINT OF CARE T EST ORDERABLES Performing Organization Address [facility] Co de Phone Number [facility] [place] [address] * Heparin (unfractionated) Level (2021 10:41 PM EDT) Pathologist [facility] UF Heparin 0.26 IU/mL [facility] Comment: Guidelines for therapeutic [...] Lab Isaiah Hoyos MD HEMATOLOGY ORDERABL ES [facility] [place] [address] * EKG 12 Lead (2021 8:46 PM EDT) Pathologist [facility] Ventricular rate 69 BPM MUSE SYSTEM Atrial Rate 69 BPM MUSE SYSTEM P-R Interval 148 ms MUSE SYSTEM QRS Duration 84 ms MUSE SYSTEM Q-T Interval 384 ms MUSE SYSTEM QTC Calculated (Bezet) 411 ms MUSE SYSTEM Calculated P [place] 39 degrees MUSE SYSTEM Calculated R [place] 14 degrees MUSE SYSTEM Calculated T [place] 21 degrees MUSE SYSTEM INTERPRETATION Normal sinus [...] Blood Culture No growth at 5 days. [facility] Blood 2021 8:26 PM EDT 2021 8:57 PM EDT Narrative Resulting Agency Comment Spec In Lab Isaiah Hoyos MD MICROBIOLOGY - BLOO D ORDERABLES Performing Organization Address City/[facility] Co de Phone Number [facility] [place] [address] * Troponin (2021 7:31 PM EDT) Troponin-T <0.01 0.00 - 0.00 ng/mL [facility] Comment: The 99th percentile for Troponin T is less than 0.01 ng/mL, any detectable cTnT concentration using this assay should be considered elevated. According to the third universal definition of myocardial infarction the following criteria with a clinical presentation consistent with acute myocardial ischemia meets the diagnosis for a myocardial infarction (DC). Detection of a rise and/or fall of cTnT, with at least one value greater than the 99th percentile (> or = 0.01) and with at least one of the following ?? Symptoms of ischemia ?? New or presumed new significant QB-njavcnv-N wave (ST-T) changes or new left bundle [...] additional sample may be indicated. Reference: Third [place] Definition of Myocardial Infarction. Journal of the [place] [employer] 2012;60:1581-98 Blood 2021 7:31 PM EDT 2021 7:37 PM EDT Narrative Resulting Agency Comment Spec In Lab Isaiah Hoyos MD CHEMISTRY ORDERABLE S [facility] [place] [address] * (ABNORMAL) Differential, Automated (2021 7:31 PM EDT) Neutrophil % 53.6 % [facility] Neutrophil Absolute 4.36 1.70 - 6.10 x10(3)/mc L [facility] Lymph % 28.5 % [facility] Lymphocytes Abs 2.3 0.9 - 3.2 x10(3)/mc L [facility] Monocyte % 10.8 % [facility] Monocyte Abs 0.9 0.3 - 0.9 x10(3)/mc L [facility] Eos % 5.4 % [facility] Eosinophils Abs 0.4 0.0 - 0.4 x10(3)/mc L [facility] Basophil % 1.0 % [facility] Baso Absolute 0.1 0.0 - 0.1 x10(3)/mc L [facility] Immature Gran % 0.70 % [facility] Comment: Immature granulocytes(IG's)percentage and absolute count will include metamyelocytes, myelocytes, and promyelocytes. Blood smears from CBCs yielding IG's will be scanned manually for concordance. If this scan disagrees with the automated IG or if promyelocytes are noted, a manual differential will be performed. Immature Gran Absolute 0.06(H) 0.00 - 0.04 x10(3)/mc L [facility] Blood 2021 7:31 PM EDT 2021 7:37 PM EDT Narrative Resulting Agency Comment Spec In Lab Isaiah Hoyos MD HEMATOLOGY ORDERABL ES Performing Organization Address City/[facility]/ZIP Co de Phone Number [facility] [place] [address] * (ABNORMAL) Hemogram (2021 7:31 PM EDT) White Blood Cell 8.1 4.0 - 9.5 x10(3)/mc L [facility] Red Blood Cell 4.65 4.58 - 5.54 x10(6)/mc L [facility] Hemoglobin 13.5(L) 13.7 - 16.5 g/dL [facility] Hematocrit 39.4(L) 40.5 - 48.5 % [facility] Mean Cell Volume 84.7 82.9 - 93.1 fL [facility] Mean Cell Hemoglobin 29.0 27.5 - 32.1 pg [facility] Mean Cell Hemoglobin Concentration 34.3 32.0 - 35.7 g/dL [facility] Platelet 219 145 - 357 x10(3)/mc L [facility] RDW Standard Deviation 39.9 36.0 - 45.0 [facility] LABORATORY RDW coefficient of variation 13.1 11.4 - 13.8 % [facility] Mean Platelet Volume 10.5 7.6 - 12.9 [facility] LABORATORY NRBC% auto 0.0 % [facility] NRBC Absolute 0.000 0.000 - 0.000 x10(3)/ L [facility] Blood 2021 7:31 PM EDT 2021 7:37 PM EDT Narrative Resulting Agency Comment Spec In Lab Isaiah Hoyos MD HEMATOLOGY ORDERABL ES [facility] [place] [address] * (ABNORMAL) Basic Metabolic Panel (non-fasting) (2021 7:31 PM EDT) Glucose 244(H) 65 - 199 mg/dL [facility] Comment:Diabetes: >=200 mg/d L plus symptoms Blood Urea Nitrogen 12 10 - 20 mg/dL [facility] Creatinine 0.73(L) 0.80 - 1.50 mg/dL [facility] Sodium 133(L) 135 - 145 mmol/L [facility] Potassium 4.0 3.5 - 5.0 mmol/L [facility] Comment: Please note: ??Patients with WBC >100,000 may have falsely elevated Potassium levels. ??For accurate Potassium quantification in these patients send serum separator tube (gold top) for subsequent determinations. ??Contact the Clinical Chemistry Laboratory if there are any questions. Chloride 100 98 - 107 mmol/L [facility] Carbon Dioxide 22 22 - 31 mmol/L [facility] Anion Gap 11 5 - 15 mmol/L [facility] Calcium 9.3 8.5 - 10.5 mg/dL [facility] Est Glomerular Filtration Rate 105 >=60 mL/min/1. 73 m?? [facility] Comment: This patient? s [...] Lab Isaiah Hoyos MD CHEMISTRY ORDERABLE S [facility] [place] [address] documented in this encounter Visit Diagnoses Diagnosis Unstable angina- Primary Intermediate coronary syndrome Chest pain, unspecified type Smoker Tobacco use disorder CAD (coronary artery disease) Coronary atherosclerosis of unspecified type of vessel, clark's point or graft Chest pain Chest pain, unspecified [...] 0932 (Given - Provider: Fabienne Morelos RN)1041 ([facility] Hold - Provider: Admin Adt - Reason: Transfer to a Procedural area)1224 ([facility] Unhold - Provider: Admin Adt) atorvastatin (Lipitor) [...] 0932 (Given - Provider: Fabienne Morelos RN)1041 ([facility] Hold - Provider: Admin Adt - Reason: Transfer to a Procedural area)1224 ([facility] Unhold - Provider: Admin Adt) cephALEXin (Keflex) [...] 0932 (Given - Provider: Fabienne Morelos RN)1041 ([facility] Hold - Provider: Admin Adt - Reason: Transfer to a Procedural area)1224 ([facility] Unhold - Provider: Admin Adt) DULoxetine DR [...] Discontinued, DO NOT CRUSH OR OPEN, Routine 0677 (Given - Provider: Arturo Morris RN) 0538 (Given - Provider: Emily Olmedo RN)1041 ([facility] Hold - Provider: Admin Adt - Reason: Transfer to a Procedural area)1224 ([facility] Unhold - Provider: Admin Adt) losartan (Cozaar) tablet 12.5 mg 12.5 mg, Oral, DAILY, First dose on 06/09/21 at 0900, Until Discontinued, Routine 0837 (Given - Provider: Fabienne Morelos RN) 0932 (Given - Provider: Fabienne Morelos RN)1041 ([facility] Hold - Provider: Admin Adt - Reason: Transfer to a Procedural area)1224 ([facility] Unhold - Provider: Admin Adt) metoprolol succinate XL (Toprol-XL) tablet 100 mg 100 mg, Oral, DAILY, First dose on 06/09/21 at 0900, Until Discontinued, DO NOT CRUSH OR OPEN, Routine 0837 (Given - Provider: Fabienne Morelos RN) 0932 (Given - Provider: Fabienne Morelos RN)1041 ([facility] Hold - Provider: Admin Adt - Reason: Transfer to a Procedural area)1224 ([facility] Unhold - Provider: Admin Adt) ondansetron (pf) [...] 0932 (Given - Provider: Fabienne Morelos RN)1041 ([facility] Hold - Provider: Admin Adt - Reason: Transfer to a Procedural area)1224 ([facility] Unhold - Provider: Admin Adt) piperacillin-tazobactam (Zosyn) [...] RN)0938 (Stopped - Provider: Fabienne Morelos RN)1041 ([facility] Hold - Provider: Admin Adt - Reason: Transfer to a Procedural area)1224 ([facility] Unhold - Provider: Admin Adt)1238 (New Bag - Provider: Fabienne Morelos RN)1638 (Stopped - Provider: Fabienne Morelos RN) pramipexole (Mirapex) tablet 0.5 mg 0.5 mg, Oral, NIGHTLY, First dose on 06/08/21 at 2115, Until Discontinued, Routine 214 (Given - Provider: Arturo Morris RN) 202 (Given - Provider: Emily Olmedo RN) 1041 ([facility] Hold - Provider: Admin Adt - Reason: Transfer to a Procedural area)1224 ([facility] Unhold - Provider: Admin Adt) ranolazine ER (Ranexa) tablet 500 mg 500 mg, Oral, 2 TIMES DAILY, First dose on 06/10/21 at 1100, Until Discontinued, DO NOT CRUSH OR OPEN. Baseline EKG required before administration., Routine, Has baseline EKG been obtained? Yes 1041 ([facility] Hold - Provider: Admin Adt - Reason: Transfer to a Procedural area)1100 (Canceled Entry - Provider: Fabienne Morelos RN - Reason: Transfer to a Procedural area)1224 ([facility] Unhold - Provider: Admin Adt)1238 (Given - [...] - Reason: Transfer to a Procedural area)1224 ([facility] Unhold - Provider: Admin Adt) topiramate (Topamax) tablet 50 mg 50 mg, Oral, NIGHTLY, First dose on 06/08/21 at 2115, Until Discontinued, Routine 2142 (Given - Provider: Arturo Morris RN) 2024 (Given - Provider: Emily Olmedo RN) 1041 ([facility] Hold - Provider: Admin Adt - Reason: Transfer to a Procedural area)1224 ([facility] Unhold - Provider: Admin Adt) vancomycin (Vancocin) [...] Jose Damon MD - Comment: Contrast in Manufacturing Manager) lidocaine (Xylocaine) 1% (10 mg/mL) injection 3 mg 3 mg (0.3 mL), Subcutaneous, ONCE PRN, 1 dose, Starting on 10/16/21 at 1909, Until Thu06/10/21 at 2028, for discomfort with PIV insertion, Routine 1041 ([facility] Hold - Pro vider: Admin Adt - Reason: Transfer to a Procedural area)1224 ([facility] Unhold - Provider: Admin Adt) lidocaine (Xylocaine) 1% (10 mg/mL) injection (CANCELED) ONCE PRN, Starting on Thu06/10/21 at 1100, Until Thu06/10/21 at 1147, Cath (Intra-Procedure), Routine 1100 (Given - Provid er: Syed Sloorio MD) midazolam (pf) (Versed) (1 mg/mL) multi-dose [...] - Reason: Transfer to a Procedural area)1224 ([facility] Unhold - Provider: Admin Adt) [...] Prov ider: Naye Song RN - Comment: Manufacturing Manager Flush Line) verapamiL (Isoptin) (2.5 mg/mL) injection [...] Routine documented in this encounter Care Teams Tourist Information Officer Relationship Specialty Start Date End Date Coni Lim MD [address] [place] [address] PCP - General 07/16/10 documented as of this encounter
--- OUTSIDE RECORDS SUMMARY | 2024-04-30 18:19 | XMS_ITS | Encounter Summary ---
Author Organization [facility] Address [facility] [place] [address] Care Team Providers Care Topology Teacher Name Role Phone Coni Lim MD Primary Care Provider [phone] Reason for Visit * Consultation (Routine) - Closed Specialty Diagnoses / Procedures Referred By Ruby garvin Referred To Contact Ophthalmology Diagnoses inflammed caruncle od Darjee, Jaymal, OD [address] [place] [address] Keeley Paredes MD [facility] [place] [address] Referral ID Status Reason Start Date Expiration Date V isits Requested Visits Authorized [id number] Closed Consult, Test & Treat 09/28/2019 09/27/2020 1 1 Encounter Details Date Type Department Care Team (Late st Contact Info) Description 05/24/2020 10:15 AM EDT [place] [address] Keeley Paredes MD [facility] [place] [address] Conjunctival lesion Social History Tobacco Use Types [...] conjunctiva documented in this encounter Care Teams Topology Teacher Relationship Specialty Start Date End Date Coni Lim MD [address] [place] [address] PCP - General 07/16/10 documented as of this encounter
--- OUTSIDE RECORDS SUMMARY | 2024-04-30 18:19 | XMS_ITS | Encounter Summary ---
[place] [address] Care Team Providers Care Tar Processing Technician Name Role Phone Coni Lim MD Primary Care Provider [phone] Reason for Visit * Auth/Cert Specialty Diagnoses / Procedures Referred By Ruby garvin Referred To Contact Diagnoses Unstable angina Chest pain Procedures EMERGENCY IPI Referral ID Status Reason Start Date Expiration Date Visits Re quested Visits Authorized [id number] 1 1 Encounter Details Date Type Department Care Team (Latest Contact Info) Description 06/09/2021 9:25 AM EDT - 06/09/2021 11:59 PM EDT Hospital Encounter [place] [id number] Discharge Disposition: Home Social History Tobacco Use [...] mLs documented in this encounter Care Teams Tar Processing Technician Relationship Specialty Start Date End Date Coni Lim MD [address] [place] [address] PCP - General 07/16/10 documented as of this encounter
--- OUTSIDE RECORDS SUMMARY | 2024-04-30 18:19 | XMS_ITS | Encounter Summary ---
Author Organization [facility] Address [facility] [place] [address] Care Team Providers Care Brick Shader Name Role Phone Coni Lim MD Primary Care Provider Encounter Details Date Type Department Care Team (Late st Contact Info) Description 06/07/2020 Telephone [place] [address] Keeley Paredes MD [facility] [address] OPHTHALMOLOGY [place] [id number] Social History Tobacco Use Types Packs/Day Years [...] on filedocumented in this encounter Care Teams Brick Shader Relationship Specialty Start Date End Date Coni Lim MD [address] [place] [address] PCP - General 07/16/10 documented as of this encounter
--- OUTSIDE RECORDS SUMMARY | 2024-04-30 18:19 | XMS_ITS | Encounter Summary ---
Author Organization Formerly [facility] Address [facility] [place] [address] Care Team Providers Care Mirror Installer Name Role Phone Coni Lim MD Primary Care Provider [phone] Reason for Visit * Auth/Cert Specialty Diagnoses / Procedures Referred By Ruby garvin Referred To Contact Diagnoses Unstable angina Chest pain Procedures EMERGENCY IPI Referral ID Status Reason Start Date Expiration Date Visits Re quested Visits Authorized [id number] 1 1 Encounter Details Date Type Department Care Team (Late st Contact Info) Description 06/10/2021 9:00 AM EDT - 06/10/2021 10:00 AM EDT [place] [id number] Jose Trimble MD [facility] [place] [address] CARDIAC CATHETERIZATION Social History Tobacco Use Types [...] Romeo Coelho Patient Age: 56 y.o. Language: Colombian Race: White Ethnicity: Not nor Admit date: 2021 Discharge date and time: 06/10/2021 5:40 PM Attending Physician: Supa Alegria MD Discharge Physician: Supa Alegria MD Follow-up Recommendations for Providers: Romeo Coelho is a 56 year old male admitted for chest pain concerning for unstable angina. 1. ASCVD / Microvascular angina: [facility] 06/10/21 without obstructive CAD and with [...] Escobar APRN Sarah Hansen, PA-C Cardiovascular Medicine [phone] Discharge Diagnoses (Hospital Problems) and Secondary Diagnoses (Chronic Problems): Active Hospital Problems Diagnosis ??? Unstable angina ??? Chest pain ??? Smoker ??? CAD (coronary artery disease) ??? Dyslipidemia ??? HTN (hypertension) ??? DM (diabetes mellitus) Resolved Hospital Problems No resolved problems to display. Active Non-Hospital Problems Diagnosis ??? Hx-TIA (transient ischemic attack) ??? GERD (gastroesophageal reflux disease) ??? Conjunctival lesion Operations/Major Procedures: [facility] 06/10/21 Hemodynamics: Left Heart Pressures Resting: [...] 2011, LAD stent in 2012, RCA stent [id number]. His most recent coronary angiogram (2019) showed [...] since 2011 and last JACINDA to RCA [id number]. Last [facility] 2018 with residual ~40% LAD and RCA [...] SOB prior to discharge. Follow up with conveyor console operator, Dr. Gutierrez, was arranged. ?? Right??groin cellulitis, abscess with spontaneous drainage Patient noted to have right groin erythema consistent with cellulitis. He remained afebrile and without leukocytosis. Blood cultures obtained at OSH were NGTD at 2 days (spoke with microbiology at [facility] on 06/10/21). These were repeated [...] CTA chest was made. ?? Diabetes mellitus, gav-lmlxzcv-birahztqq, uncontrolled A1c of 9.4%. Home metformin held for cath. Additional coverage with sliding scale and meal associated insulin. Hold metformin for 48 hours after contrast exposure. Diabetes management team consulted.Recommendations to continue metformin 1000mg BID and further management per PCP. Could consider SGLT2i. ?? HTN BP trend 12 hours prior to discharge were BP: (102-134)/(65-81) . He was continued on home hmmrhwit63.5mg daily, metoprolol succinate 100mg daily and Imdur [...] Studies and Lab Data: Blood cultures at [facility] and [facility]. Discharge Conditions/Prognosis: Alert and oriented x 3, ambulatory-independent. Ambulated without chest pain or SOB prior to discharge. Discharge to: Home. Updated Allergies/ADRs: Allergies Allergen Reactions ??? Thallium-201 Severe cardiac event ??? Lisinopril Other (See Comments) cough ??? Paper Tape [Adhesive Tape] Rash Immunizations Given this Hospitalization: Immunization History Administered Date(s) Administered ??? Influenza PF, Split 07/30/2013 ??? Influenza Vaccine (Novel) [id number], Injectable 05/24/2009 ??? Influenza Vaccine w/Preservative, Split [...] of 8AM-5PM please call the Cardiology Clinic [phone] to speak with a nurse. All other hours please call the Hospital Dehydrogenation Operator [phone] and ask to speak to the manager online on-call. Return to work: One week Driving: [...] Time PCP COLEEN Wen [address] [place] [address] Jun 20 10:00am Shoe Patternmaker Dr. Gutierrez [facility] Cardiology [phone] ThursdayJul 23 11:40am Discharge References/Attachments Angina (Colombian) Discussed with MD Coni Escobar PA-C Pager #[phone] 06/10/2021 documented in this encounter Discharge Instructions [...] of 8AM-5PM please call the Cardiology Clinic [phone] to speak with a nurse. All other hours please call the Hospital Dehydrogenation Operator [phone] and ask to speak to the manager online on-call. Return to work: One week Driving: [...] Time PCP COLEEN Wen [address] [place] [address] Jun 20 10:00am Shoe Patternmaker Dr. Gutierrez [facility] Cardiology [phone] ThursdayJul 23 11:40am * Patient Instructions* Coni Lew PA - 06/10/2021 3:07 PM EDT * Attachments The following attachments cannot be sent through Care Everywhere. * Angina (Colombian) documented in this encounter Medications at Time [...] MOUTH EVERY 4 TO 6 HOURS 05/18/2020 Ushiuch Verio test strips Strip USE ONE STRIP [...] Transport initiated/not confirmed: Spoke with NOELLE from [facility] who initiated a ride with their scheduling department/dispatch to pick patient up at discharge 06/10/21 from the MAIN entrance at ~18:00 en route to HOME UPDATE 16:06 Discharge Transportation confirmed: Spoke with ELMIRA from [facility] who confirmed a truck driver provided by commercial loan officerULISES will arrive to pick patient up at discharge 06/10/21 from the MAIN entrance at 18:00 en route to HOME. Bedside nurse notified via eDH chat. [facility] PHONE: [phone] * Supa Alegria MD - 06/10/2021 8:04 AM EDT Images from the original note were not included. Inpatient Cardiology Progress Note Patient Name: Romeo Coelho Service: CUSTOMER EXPERIENCE PROFESSIONAL / PA Responsible Attending: Supa Alegria MD [...] since 2011 and last JACINDA to RCA [id number]. Last [facility] 2019 with residual ~40% LAD [...] chest at this time ?? Diabetes mellitus, hzd-fnruzeo-ueubshgxb, uncontrolled A1c of 9.4% Hold home metformin [...] Discussed with MD Coni Escobar PA-C Pager #[phone] 06/10/2021 Cardiology Attending Note I have seen and examined the patient. I agree with the findings above. Of note, he is feeling well today. His groin site shows no evidence of fluid collection. Blood cultures show no growth. We will proceed with coronary angiography and possible PCI Supa Alegria MD [facility] Total time spent on review of [...] Progress Note Patient Name: Romeo Coelho Service: CUSTOMER EXPERIENCE PROFESSIONAL / PA Responsible Attending: Supa Alegria MD Reason for continued hospitalization: Evaluation and management of unstable angina- cath Right groin cellulitis-IV abx Medication adjustment Active Problems: Active Hospital Problems Diagnosis ??? Unstable angina ??? Chest pain ??? Smoker ??? CAD (coronary artery disease) -Coronary Angio 07/29/2013: 65% (FFR 0.74) mid LAD lesion s/p PCI with 3.5 X 18 mm JACINDA - [facility] 2009 post abnormal nuc stress +IW, [...] CTA at this time ?? Diabetes mellitus, wpw-lidaccn-hmbmqdwww Poor control with A1c of 9.4 Carb [...] ?Routine Diet: Daily Healthy Menu Choices/Cardiac diet ([facility]-Diet) CHO counting level 2 DVT Prophylaxis: already [...] proceed tomorrow on antibiotics. Supa Alegria MD [facility] Total time spent on review of [...] PCP: Coni Lim MD PCP phone number: [phone] Date of Admission: 2021 ( Hospital Day 0 days ) Attending:Zuleyka Hodgson MD Patient Active Problem List Diagnosis ??? ','Unstable angina ??? Chest pain ??? Smoker ??? CAD (coronary artery disease) Overview Note: -Coronary Angio 07/29/2013: 65% (FFR 0.74) mid LAD lesion s/p PCI with 3.5 X 18 mm JACINDA - [facility] 2009 post abnormal nuc stress +IW, [...] of Onset ??? Myocardial Infarction Father 46 [place], CABG ??? Heart Disease Father ??? Diabetes [...] Lives with and daughter at home in [place], [place]. He is disabled now. He used [...] in the last 7068 hours. Invalid input(s): TJLOERXHMGS0K No results for input(s): POCGLU in the last 168 hours. Heme No results for input(s): LDH, HAPTOGLOBIN, URICACID in the last 168 hours. ABG (Arterial Blood Gas) No results found for: PHART, PO2ART, YXL5CVW, TWF4HCK Microbiology: Microbiology Results (Last 30 days) No [...] (porcine) AND heparin (porcine) infusion Recent diagnostics: [facility] (2019): Left Main The left main [...] Obtain Echo - Serial cardiac enzymes - cardiac monitor - Cardiac cath in a.m. - [...] infection. No hypoxia or tachycardia #Diabetes mellitus, eia-hqdkbym-lgyyhmbsa, poor control with A1c of 9.4 -Diabetic [...] #Routine Diet: Daily Healthy Menu Choices/Cardiac diet ([facility]-Diet) 75/75/90 CHO counting level 3 DVT Prophylaxis: already on heparin drip Code Status: Attempt Cardiopulmonary Resuscitation - Inpatient Dispo: Pending clinical course Isaiah Hoyos MD Pager #[phone] 06/08/21 8:56 PM documented in this encounter [...] cath without complications. Coni Lew PA-C Pager #[phone] 06/10/2021 * Initial Assessments - Ruthie Macias RN - 06/10/2021 3:39 PM EDT Office of Care Management Initial Assessment Ruthie Macias RN reviewed record and discussed patient with Care Team. Source of Information: Team, bedside nurse, medical record, and Patient Introduced self/reviewed role; services accepted. Reason for Hospitalization: unstable angina Last COVID test: Lab Results Component Value Date [id number] Not Detected 06/09/2021 Past medical History: Past [...] Dasia would be surrogate decision maker per [place] surrogatedecision making law. (Only good for 180 days) Any patient receiving care at [facility] must abide by [place] law. The hierarchy for surrogate decision making [...] (i) The agent with financial power of deputy commonwealth's attorney or a conservator appointed in accordance [...] cane - straight Home Address confirmed as: [address] [place] [id number] Social & Family Supports: All names listed below confirmed with patient as current and correct Extended Emergency Contact Information Primary Emergency Contact: Dasia Coelho Address: [address] [place] [id number] [place] [address] of [facility] Mobile Relation: Spouse Current Care Provided [...] MEDICAID [place] Prescription Coverage: Yes Preferred Pharmacy: [id number] - [facility], [place] - [address] [facility] [address] [place] [address] [place] Status: Patient is a : No Primary Care Provider: Coni Lim MD [phone] Patient/Caregiver Goals of Treatment: dc to home [...] ambulation, driving. He drove his car to [facility] and then required a BLS to transport here to [facility]. He will require assistance in finding A ride to home when he is dced. Pt has supports in place to accessthe necessary care and or follow up after dishcharge and there are no RN CM or TELEPHONE QUOTATION CLERK needs that are identified at this time Plan: dc to home A member of the Care Management team will continue to monitor progress, follow for continuity of care and assist with transition of care planning. Ruthie Macias RN CM [phone] Pager [phone] * Consult Note - Elena Zaragoza APRN [...] management and to provide a review of extermination inspector diabetes care. Diabetes History: Romeo Coelho has had diabetes for about 8 years. He was diagnosed during routine blood testing by his PCP. Denies having any symptoms at time of diagnosis. He takes metformin only, hasn't discussed additional medications with PCP previously as historically A1c has been 6-7. Lives in [facility] with Dasia. States the last few [...] of Onset ??? Myocardial Infarction Father 46 [place], CABG ??? Heart Disease Father ??? Diabetes [...] 10 gm carb ratio for each meal) assisted diabetes care: Medications - Outpatient treatment regimen recommendations pending based on the hospital course. Monitoring - continue BG tid ac & hs Diet - low fat/low carb diet Exercise - weight-bearing exercise 30 min/day, as tolerated Thank you for allowing us to provide care for your patient Elena Nik FLAHERTY Endocrinology Pager [phone] 70 minutes of this 80 minute visit was spent with the patient in counseling on diabetes and treatment plan, reviewing all glucose and insulin data as well as relevant laboratory results with the patient, and coordination of care on the inpatient unit * Brief Op Note - Jose Trimble MD - 06/10/2021 11:37 AM EDT Brief Operative Note Patient Name: Romeo Coelho : [id number] MR#: [id number] Case Date: 06/10/2021 Shoe Patternmaker: * Jose Trimble MD - Primary * Syed Solorio MD - Fellow Preoperative diagnosis: nstemi Postoperative diagnosis:NSTEMI with stable coronary anatomy Preliminary Cardiac Catheterization Procedure Note: Procedure(s) performed: Coronary Angiography, Left Heart Cath Baseline Frailty Assessment: Definitions from [place] Study of Health and Aging Clinical Frailty [...] Full report to follow. JOSE TRIMBLE MD clinical nursing instructor Pager [phone] * Plan of Care - Fabienne Morelos RN - 06/09/2021 2:57 PM EDT OUTCOME EVALUATION NOTE: OUTCOME SUMMARY: A/O x4. VSS on RA. NSR on tele. Heparin gtt maintained per protocol.IV zosyn and vanc given per protocol. (see MAR). BG elevated, MD notified, insulin scale adjusted. PLAN MOVING FORWARD: BC results finishing lab technician D/c planning INDIVIDUALIZED FALL PREVENTION [...] SOB reported, remains on room air overnight. [place] very nauseous after he went to [...] further details. Isaiah Hoyos MD 2021 Pager [phone] documented in this encounter Plan of Treatment [...] 06/09/2021 5:50 AM EDT RAPID COVID-19 PCR ([facility]) Routine 06/09/2021 5:45 AM EDT POCT [...] * POCT Glucose (06/10/2021 4:20 PM EDT) [facility] Signature Glucose, POC 177 65 - 199 mg/dL [facility] Comment: Supplemental ranges: <140 mg/dL before meals <180 mg/dL all other times of the day Blood 06/10/2021 4:20 PM EDT 06/10/2021 4:20 PM EDT Supa Alegria MD POINT OF CARE TEST O RDERABLES [facility] [place] [place] [address] * Troponin (06/10/2021 1:07 PM EDT) Troponin-T [...] meets the diagnosis for a myocardial infarction (PA). Detection of a rise and/or fall of cTnT, with at least one value greater than the 99th percentile (> or = 0.01) and with at least one of the following ?? Symptoms of ischemia ?? New or presumed new significant JC-oytnnfm-C wave (ST-T) changes or new left bundle [...] additional sample may be indicated. Reference: Third [facility] Definition of Myocardial Infarction. Journal of the [place] College of Cardiology 2012;60:1581-98 Blood 06/10/2021 1:07 PM EDT 06/10/2021 1:18 PM EDT Narrative Resulting Agency Comment Spec In Lab Isaiah Hoyos MD CHEMISTRY ORDERABLE S [facility] [place] [address] * POCT Glucose (06/10/2021 11:58 AM EDT) Glucose, POC 175 65 - 199 mg/dL [facility] Comment: Supplemental ranges: <140 mg/dL before meals <180 mg/dL all other times of the day Blood 06/10/2021 11:5 8 AM EDT 06/10/2021 11:58 AM EDT Supa Alegria MD POINT OF CARE TEST O RDERABLES [facility] [place] [address] * CARDIAC CATHETERIZATION (06/10/2021 11:45 AM EDT) Anatomical Region Laterality Modality Other Narrative 06/10/2021 12:54 PM EDT ?[facility] ? Cardiac Catheterization/Intervention Report ? Patient Name: Coelho, Romeo A. ? Procedure Date: 06/10/2021 ? A #: [id number] ? Primary Physician: Jose Trimble V ? Case #: [id number] ? File Name: [id number] ? Catheterization Order Number: [id number] ? [facility] ? Final Report [place], [place] ? Patient Name: ? Romeo Coelho ? ID#: ?[id number] ? : ?1965 ? Procedure Date: ? [...] was ?designated as ASA Class II. The [facility] clinical frailty scale is 2: Well. [...] procedure was Urgent. The indication for ?the laborer road visit is worsening angina. Chest pain symptom [...] Procedure Note Jose Trimble MD - 06/10/2021 [facility] Cardiac Catheterization/Intervention Report Patient Name: Romeo CoelhoNatalie Procedure Date: 06/10/2021 A #: [id number] Primary Physician: Jose Trimble V Case #: [id number] File Name: [id number] Catheterization Order Number: [id number] [facility] FinalReport [place], [place] Patient Name: Romeo Coelho ID#:[id number] :1965 Procedure Date: June 10, 2021 Case [...] was designated as ASA Class II. The [facility] clinical frailty scale is 2:Well. Diagnostic [...] diagnostic procedure was Urgent. The indicationfor the laborer road visit is worsening angina. Chest pain symptomassessment [...] units of heparin were administered. A total [id number] of Omnipaque were opened, 38cc of Omnipaque were administered pzt36jo of Omnipaque were wasted. Radiation: Fluoro time [...] * POCT Glucose (06/10/2021 7:59 AM EDT) [facility] Glucose, POC 191 65 - 199 mg/dL [facility] Comment: Supplemental ranges: <140 mg/dL before meals <180 mg/dL all other times of the day Blood 06/10/2021 7:59 AM EDT 06/10/2021 7:59 AM EDT Supa Alegria MD POINT OF CARE TEST O RDERABLES [facility] [place] [place] [address] * (ABNORMAL) BMP w/fasting Glucose (06/10/2021 3:44 [...] of Diabetes Mellitus, Position Statement from the [place] Diabetes Association. ??Diabetes Care, Volume 33, Supplement [...] CHEMISTRY ORDERABLE S [facility] [place] [address] * Troponin (06/10/2021 3:44 AM EDT) Troponin-T [...] meets the diagnosis for a myocardial infarction (PA). Detection of a rise and/or fall of cTnT, with at least one value greater than the 99th percentile (> or = 0.01) and with at least one of the following ?? Symptoms of ischemia ?? New or presumed new significant SU-wagyhmb-A wave (ST-T) changes or new left bundle [...] additional sample may be indicated. Reference: Third [facility] Definition of Myocardial Infarction. Journal of the [place] College of [employer]iology 2012;60:1581-98 Blood Venous Draw / Unknown 06/10/2021 3:44 AM EDT 06/10/2021 4:06 AM EDT Narrative Resulting Agency Comment Spec In Lab Isaiah Hoyos MD CHEMISTRY ORDERABLE S Performing Organization Address [facility]/ZIP Co de Phone Number [facility] [place] [address] * Green Tube HOLD (06/10/2021 3:44 AM EDT) Green Hold Sample in lab. [facility] Blood Venous Draw / Unknown 06/10/2021 3:44 AM EDT 06/10/2021 4:03 AM EDT Isaiah Hoyos MD CHEMISTRY ORDERABLE S Performing Organization Address [facility] Co de Phone Number [facility] [place] [address] * POCT Glucose (06/10/2021 3:44 AM EDT) Glucose, POC 191 65 - 199 mg/dL [facility] Comment: Supplemental ranges: <140 mg/dL before meals <180 mg/dL all other times of the day Blood 06/10/2021 3:44 AM EDT 06/10/2021 3:44 AM EDT Supa Alegria MD POINT OF CARE TEST O RDERABLES Performing Organization Address [facility] Co de Phone Number [facility] [place] [address] * Heparin (unfractionated) Level (06/10/2021 3:44 AM EDT) [facility] UF Heparin 0.38 IU/mL [facility] [...] Comment Spec In Lab Isaiah Hooys MD HEMATOLOGY ORDERABL ES [facility] [place] [address] * (ABNORMAL) Differential, Automated (06/10/2021 3:44 AM EDT) [facility] Neutrophil % 55.0 % [facility] Neutrophil Absolute 4.98 1.70 - 6.10 x10(3)/mc L [facility] Lymph % 29.1 % [facility] Lymphocytes Abs 2.6 0.9 - 3.2 x10(3)/mc L [facility] Monocyte % 7.5 % [facility] Monocyte Abs 0.7 0.3 - 0.9 x10(3)/mc L [facility] Eos % 5.9 % [facility] Eosinophils Abs 0.5(H) 0.0 - 0.4 x10(3)/[facility] Basophil % 1.1 % [facility] Baso Absolute 0.1 0.0 - 0.1 x10(3)/[facility] Immature Gran % 1.40 % [facility] Comment: Immature granulocytes(IG's)percentage and absolute count will include metamyelocytes, myelocytes, and promyelocytes. Blood smears from CBCs yielding IG's will be scanned manually for concordance. If this scan disagrees with the automated IG or if promyelocytes are noted, a manual differential will be performed. Immature Gran Absolute 0.13(H) 0.00 - 0.04 x10(3)/[facility] Blood 06/10/2021 3:44 AM EDT 06/10/2021 4:03 AM EDT Narrative Resulting Agency Comment Spec In Lab Isaiah Hoyos MD HEMATOLOGY ORDERABL ES [facility] [place] [address] * Hemogram (06/10/2021 3:44 AM EDT) White Blood Cell 9.0 4.0 - 9.5 x10(3)/[facility]AT[facility] Red Blood Cell 4.97 4.58 - 5.54 x10(6)/[facility] Hemoglobin 14.2 13.7 - 16.5 g/dL [facility] Hematocrit 42.8 40.5 - 48.5 % [facility] Mean Cell Volume 86.1 82.9 - 93.1 fL [facility] Mean Cell Hemoglobin 28.6 27.5 - 32.1 pg [facility] Mean Cell Hemoglobin Concentration 33.2 32.0 - 35.7 g/dL [facility] Platelet 251 145 - 357 x10(3)/[facility] LABORATORY RDW Standard Deviation 40.5 36.0 - 45.0 [facility] RDW coefficient of variation 13.0 11.4 - 13.8 % [facility] Mean Platelet Volume 10.5 7.6 - 12.9 [facility] NRBC% auto 0.0 % [facility] NRBC Absolute 0.000 0.000 - 0.000 x10(3)/[facility] Blood 06/10/2021 3:44 AM EDT 06/10/2021 4:03 AM EDT Narrative Resulting Agency Comment Spec In Lab Isaiah Hoyos MD HEMATOLOGY ORDERABL ES Performing Organization Address [facility]/ZIP Co de Phone Number [facility] [place] [address] * POCT Glucose (06/09/2021 11:57 PM EDT) Glucose, POC 147 65 - 199 mg/dL [facility] Comment: Supplemental ranges: <140 mg/dL before meals <180 mg/dL all other times of the day Blood 06/09/2021 11:5 7 PM EDT 06/09/2021 11:57 PM EDT Supa Alegria MD POINT OF CARE TEST O RDERABLES Performing Organization Address [facility]/ZIP Co de Phone Number [facility] [place] [address] * POCT Glucose (06/09/2021 8:06 PM EDT) Glucose, POC 193 65 - 199 mg/dL [facility] Comment: Supplemental ranges: <140 mg/dL before meals <180 mg/dL all other times of the day Blood 06/09/2021 8:06 PM EDT 06/09/2021 8:06 PM EDT Supa Alegria MD POINT OF CARE TEST O RDERABLES [facility] [place] [place] [address] * Troponin (06/09/2021 5:47 PM EDT) Troponin-T [...] meets the diagnosis for a myocardial infarction (PA). Detection of a rise and/or fall of cTnT, with at least one value greater than the 99th percentile (> or = 0.01) and with at least one of the following ?? Symptoms of ischemia ?? New or presumed new significant XI-piltldi-V wave (ST-T) changes or new left bundle [...] additional sample may be indicated. Reference: Third [facility] Definition of Myocardial Infarction. Journal of the [employer] 2012;60:1581-98 Blood 06/09/2021 5:47 PM EDT 06/09/2021 6:02 PM EDT Narrative Resulting Agency Comment Spec In Lab Isaiah Hoyos MD CHEMISTRY ORDERABLE S [facility] [place] [address] * (ABNORMAL) POCT Glucose (06/09/2021 4:40 PM EDT) Glucose, POC 200(H) 65 - 199 mg/dL [facility] Comment: Supplemental ranges: <140 mg/dL before meals <180 mg/dL all other times of the day Blood 06/09/2021 4:40 PM EDT 06/09/2021 4:40 PM EDT Supa Alegria MD POINT OF CARE TEST O RDERAAIRAM Performing Organization Address [facility] de Phone Number [facility] [place] [address] * (ABNORMAL) POCT Glucose (06/09/2021 3:02 PM EDT) Glucose, POC 209(H) 65 - 199 mg/dL [facility] Comment: Supplemental ranges: <140 mg/dL before meals <180 mg/dL all other times of the day Blood 06/09/2021 3:02 PM EDT 06/09/2021 3:02 PM EDT Supa Alegria MD POINT OF CARE TEST O EVITA Performing Organization Address [facility] Phone Number [facility] [place] [address] * ECHO COMPLETE W CONTRAST (06/09/2021 1:52 PM EDT) Anatomical Region Laterality Modality Other 06/09/2021 Narrative 06/09/2021 2:16 PM EDT Procedure: ?Transthoracic Echocardiogram Patient: ?COELHO ROMEO A ? (Age): 1965(56y) Med Rec#: ? [id number] ?Sex: ?M ? Site Loc: ? [facility] ?Ht / Wt: ??177(cm)/114(kg) Pt. Loc: ?CCU ? BSA: ?2.29 Study Date: ?? 06/09/2021 ?Pt. Type: Inpatient Tape: ? Referring: [email or web address] Reading: Zuleyka Hodgson ([id number]) Police Cadet: Ortiz Sandoval Diagnosis: *Chest pain, unspecified (R07.9) [...] Vmax ?0.67 ? m/sec ? MV deceleration tafj134.55 ? msec ? MV A-wave Vmax ?0.48 [...] 06/09/2021 14:15:33 Images reviewed and interpretation verified [facility] Cardiac Ultrasound Laboratory Procedure Note Zuleyka Hodgson MD - 06/09/2021 Procedure: Transthoracic Echocardiogram Patient: LAQUITA HARRIS(Age): 1965(56y) Med Rec#: [id number] Sex: M Site Loc: [facility] Ht / Wt: 177(cm)/114(kg) Pt. Loc: [facility] BSA: 2.29 Study Date: 06/09/2021 Pt. Type: Inpatient Tape: Referring: ALLISONMINHDA Reading: Zuleyka Hodgson ([id number]) Police Cadet: Ortiz Sandoval Diagnosis: *Chest pain, unspecified (R07.9) [...] MV E-wave Vmax 0.67 m/sec MV deceleration [id number] msec MV A-wave Vmax 0.48 m/sec MV [...] 06/09/2021 14:15:33 Images reviewed and interpretation verified [facility] Cardiac Ultrasound Laboratory Isaiah Hoyos MD [...] TEST O RDERABLES [facility] [place] [address] * Troponin (06/09/2021 11:30 AM EDT) [facility] Troponin-T <0.01 0.00 - 0.00 ng/mL [facility] Comment: The 99th percentile for Troponin T is less than 0.01 ng/mL, any detectable cTnT concentration using this assay should be considered elevated. According to the third universal definition of myocardial infarction the following criteria with a clinical presentation consistent with acute myocardial ischemia meets the diagnosis for a myocardial infarction (PA). Detection of a rise and/or fall of cTnT, with at least one value greater than the 99th percentile (> or = 0.01) and with at least one of the following ?? Symptoms of ischemia ?? New or presumed new significant XT-lyyvqja-K wave (ST-T) changes or new left bundle [...] additional sample may be indicated. Reference: Third Nem[facility] Definition of Myocardial Infarction. [employer] of the [place] [employer] 2012;60:1581-98 Blood 06/09/2021 11:3 0 AM EDT 06/09/2021 11:44 AM EDT Narrative Resulting Agency Comment Spec In Lab Isaiah Hoyos MD CHEMISTRY ORDERABLE S Performing Organization Address [facility] de Phone Number [facility] [place] [address] * Heparin (unfractionated) Level (06/09/2021 11:30 AM EDT) Pathologist [facility] UF Heparin 0.32 IU/mL [facility] [...] MD HEMATOLOGY ORDERABLE S Performing Organization Address [facility] Co de Phone Number [facility] [place] [address] * (ABNORMAL) POCT Glucose (06/09/2021 8:03 AM EDT) [facility] Glucose, POC 233(H) 65 - 199 mg/dL [facility] Comment: Supplemental ranges: <140 mg/dL before meals <180 mg/dL all other times of the day Blood 06/09/2021 8:03 AM EDT 06/09/2021 8:03 AM EDT Supa Alegria MD POINT OF CARE TEST O RDERABLES [facility] [place] [address] * (ABNORMAL) Differential, Automated (06/09/2021 5:50 AM EDT) Neutrophil % 56.8 % [facility] Neutrophil Absolute 4.64 1.70 - 6.10 x10(3)/mc L [facility] Lymph % 27.0 % [facility] Lymphocytes Abs 2.2 0.9 - 3.2 x10(3)/ L [facility] Monocyte % 8.6 % [facility] Monocyte Abs 0.7 0.3 - 0.9 x10(3)/ L [facility] Eos % 5.6 % [facility] Eosinophils Abs 0.5(H) 0.0 - [...] Absolute 0.09(H) 0.00 - 0.04 x10(3)/ L [facility] Blood 06/09/2021 5:50 AM EDT 06/09/2021 6:06 AM EDT Narrative Resulting Agency Comment Spec In Lab Isaiah Hoyos MD HEMATOLOGY ORDERABL ES [facility] [place] [address] * Hemogram (06/09/2021 5:50 AM EDT) [facility] White Blood Cell 8.2 4.0 - 9.5 x10(3)/[facility] LABORATORY Red Blood Cell 4.87 4.58 - 5.54 x10(6)/[facility] LABORATORY Hemoglobin 14.1 13.7 - 16.5 g/dL [facility] Hematocrit 42.0 40.5 - 48.5 % [facility] Mean Cell Volume 86.2 82.9 - 93.1 fL [facility] Mean Cell Hemoglobin 29.0 27.5 - 32.1 pg [facility] Mean Cell Hemoglobin Concentration 33.6 32.0 - 35.7 g/dL [facility] Platelet 240 145 - 357 x10(3)/[facility] LABORATORY RDW Standard Deviation 40.7 36.0 - 45.0 [facility] LABORATORY RDW coefficient of variation 12.9 11.4 - 13.8 % [facility] Mean Platelet Volume 10.9 7.6 - 12.9 [facility] LABORATORY NRBC% auto 0.0 % [facility] NRBC Absolute 0.000 0.000 - 0.000 x10(3)/[facility] LABORATORY Blood 06/09/2021 5:50 AM EDT 06/09/2021 6:06 AM EDT Narrative Resulting Agency Comment Spec In Lab Isaiah Hoyos MD HEMATOLOGY ORDERABL ES Performing Organization Address City/[facility]/ZIP Co de Phone Number [facility] [place] [address] * Troponin (06/09/2021 5:50 AM EDT) [facility] Troponin-T <0.01 0.00 - 0.00 ng/mL [facility] Comment: The 99th percentile for Troponin T is less than 0.01 ng/mL, any detectable cTnT concentration using this assay should be considered elevated. According to the third universal definition of myocardial infarction the following criteria with a clinical presentation consistent with acute myocardial ischemia meets the diagnosis for a myocardial infarction (PA). Detection of a rise and/or fall of cTnT, with at least one value greater than the 99th percentile (> or = 0.01) and with at least one of the following ?? Symptoms of ischemia ?? New or presumed new significant VQ-qubzklq-S wave (ST-T) changes or new left bundle [...] additional sample may be indicated. Reference: Third [facility] Definition of Myocardial Infarction. [employer] [place] [employer] 2012;60:1581-98 Blood 06/09/2021 5:50 AM EDT 06/09/2021 6:05 AM EDT Narrative Resulting Agency Comment Spec In Lab Isaiah Hoyos MD CHEMISTRY ORDERABLE S [facility] [place] [address] * Heparin (unfractionated) Level (06/09/2021 5:50 AM EDT) UF Heparin 0.31 IU/mL [facility] [...] MD HEMATOLOGY ORDERABL ES Performing Organization Address [facility] Co de Phone Number [facility] [place] [address] * Blood culture (06/09/2021 5:50 AM EDT) Blood Culture No growth at 5 days. [facility] Blood ANTECUBITAL REGION STRUCTURE / Unknown 06/09/2021 5:50 AM EDT 06/09/2021 10:08 AM EDT Comment:#1 Narrative Resulting Agency Comment Spec In Lab Isaiah Hoyos MD MICROBIOLOGY - BLOO D ORDERABLES Performing Organization Address [facility] Co de Phone Number [facility] [place] [address] * Lipid Panel (Reflex Direct LDL) (06/09/2021 5:50 AM EDT) Cholesterol, Total 207 mg/dL [facility] Comment: Lower Risk: <200 mg/dL Average Risk: 200-239 mg/dL Higher Risk: >ye=759 mg/dL Triglyceride 235 mg/dL [facility] Comment: Average Risk/Lower Risk: <150 mg/dL Borderline High Risk: 150-199 mg/dL High Risk: 200-499 mg/dL Very High Risk: >xy=538 mg/dL HDL Cholesterol 29 mg/dL [facility] Comment: Males: ?? Higher Risk: <40 mg/dL Females: ?? Higher Risk: <50 mg/dL LDL Cholesterol 131 mg/dL [facility] Comment: Lowest Risk: <100 mg/dL Lower Risk: 100-129 mg/dL Borderline High Risk: 130-159 mg/dL High Risk: 160-189 mg/dL Very High Risk: >bl=494 mg/dL Cholesterol/HDL Ratio 7.1 ratio [facility] Lipid Interpretation See Note [facility] Comment: Lipid management should be guided by a patient? s ASCVD risk, goals and preferences. ACC/AHA Guidelines recommend high intensity statin if clinical ASCVD or LDL greater than or equal to 190 mg/dL. http://Waygo.com/EWD-DNL-Mraphltke Adults aged 40-75 with LDL 70-189 mg/dL should have their 10 year ASCVD risk estimated with the ACC/AHA ASCVD risk fabric and accessories estimator http://tools.acc.org/ZORLT-Vpwc-Ngzhrhjqn/ Statin should be discussed if risk greater [...] CHEMISTRY ORDERABLE S [facility] [place] [address] * COVID-19 PCR (06/09/2021 5:45 AM EDT) [...] using the Simplexa COVID-19 Direct Assay by [employer] Certified as authorized by the FDA issued Emergency [...] Department of Pathology and Laboratory Medicine at [facility], certified under the Clinical Laboratory Improvement [...] fact sheets at the following FDA website: https://www.fda.gov/medical-devices/lbqyjxeblsn-nwszjud-0962-ijxux-88-slokutxzi- use-a xzfzvbjvxxmvq-yzifkax-oxlsghq/gvnma-rmvqtccxrtz-wwmy SARS-CoV-2 Source CUSTOMER EXPERIENCE PROFESSIONAL Swab [facility] Nasopharyngeal Swab 06/09/20 5:45 AM EDT 06/10/2021 6:15 AM EDT Comment:Symptoms->Surveillan ce Narrative Resulting Agency Comment Spec In Lab Isaiah Hoyos MD MICROBIOLOGY - GENE RAL ORDERABLES Performing Organization Address [facility]/ZIP Co de Phone Number [facility] [place] [address] * (ABNORMAL) POCT Glucose (06/09/2021 4:20 AM EDT) Glucose, POC 224(H) 65 - 199 mg/dL [facility] Comment: Supplemental ranges: <140 mg/dL before meals <180 mg/dL all other times of the day Blood 06/09/2021 4:20 AM EDT 06/09/2021 4:20 AM EDT Supa Alegria MD POINT OF CARE TEST O RDERABLES Performing Organization Address [facility] Co de Phone Number [facility] [place] [address] * (ABNORMAL) POCT Glucose (06/09/2021 12:35 AM EDT) Glucose, POC 346(H) 65 - 199 mg/dL [facility] Comment: Supplemental ranges: <140 mg/dL before meals <180 mg/dL all other times of the day Blood 06/09/2021 12:3 5 AM EDT 06/09/2021 12:35 AM EDT Zuleyka Hodgson MD POINT OF CARE T EST ORDERABLES Performing Organization Address [facility] Co de Phone Number [facility] [place] [address] * Heparin (unfractionated) Level (2021 10:41 PM EDT) UF Heparin 0.26 IU/mL [facility] [...] HEMATOLOGY ORDERABL ES [facility] [place] [address] * EKG 12 Lead (2021 8:46 PM EDT) Ventricular rate 69 BPM MUSE SYSTEM Atrial Rate 69 BPM MUSE SYSTEM P-R Interval 148 ms MUSE SYSTEM QRS Duration 84 ms MUSE SYSTEM Q-T Interval 384 ms MUSE SYSTEM QTC Calculated (Bezet) 411 ms MUSE SYSTEM Calculated P [place] 39 degrees MUSE SYSTEM Calculated R [place] 14 degrees MUSE SYSTEM Calculated T [place] 21 degrees MUSE SYSTEM INTERPRETATION Normal sinus [...] Hoyos MD MICROBIOLOGY - BLOO D ORDERABLES [facility] [place] [address] * Troponin (2021 7:31 PM EDT) Troponin-T [...] meets the diagnosis for a myocardial infarction (PA). Detection of a rise and/or fall of cTnT, with at least one value greater than the 99th percentile (> or = 0.01) and with at least one of the following ?? Symptoms of ischemia ?? New or presumed new significant PE-gzpsxhz-B wave (ST-T) changes or new left bundle [...] additional sample may be indicated. Reference: Third Nem[facility] Definition of Myocardial Infarction. Journal of the [place] [employer] 2012;60:1581-98 Blood 2021 7:31 PM EDT 2021 7:37 PM EDT Narrative Resulting Agency Comment Spec In Lab Isaiah Hoyos MD CHEMISTRY ORDERABLE S [facility] [place] [address] * (ABNORMAL) Differential, Automated (2021 7:31 PM EDT) Neutrophil % 53.6 % [facility] Neutrophil Absolute 4.36 1.70 - 6.10 x10(3)/mc L [facility] Lymph % 28.5 % [facility] Lymphocytes Abs 2.3 0.9 - 3.2 x10(3)/ L [facility] Monocyte % 10.8 % [facility] Monocyte Abs 0.9 0.3 - 0.9 x10(3)/ L [facility] Eos % 5.4 % [facility] Eosinophils Abs 0.4 0.0 - 0.4 x10(3)/ L [facility] [...] Absolute 0.06(H) 0.00 - 0.04 x10(3)/ L [facility] Blood 2021 7:31 PM EDT 2021 7:37 PM EDT Narrative Resulting Agency Comment Spec In Lab Isaiah Hoyos MD HEMATOLOGY ORDERABL ES [facility] [place] [address] * (ABNORMAL) Hemogram (2021 7:31 PM EDT) [facility] White Blood Cell 8.1 4.0 - 9.5 x10(3)/[facility] LABORATORY Red Blood Cell 4.65 4.58 - 5.54 x10(6)/[facility] LABORATORY Hemoglobin 13.5(L) 13.7 - 16.5 g/dL [facility] Hematocrit 39.4(L) 40.5 - 48.5 % [facility] Mean Cell Volume 84.7 82.9 - 93.1 fL [facility] Mean Cell Hemoglobin 29.0 27.5 - 32.1 pg [facility] Mean Cell Hemoglobin Concentration 34.3 32.0 - 35.7 g/dL [facility] Platelet 219 145 - 357 x10(3)/[facility] LABORATORY RDW Standard Deviation 39.9 36.0 - 45.0 [facility] LABORATORY RDW coefficient of variation 13.1 11.4 - 13.8 % [facility] Mean Platelet Volume 10.5 7.6 - 12.9 [facility] LABORATORY NRBC% auto 0.0 % [facility] NRBC Absolute 0.000 0.000 - 0.000 x10(3)/[facility] LABORATORY Blood 2021 7:31 PM EDT 2021 7:37 PM EDT Narrative Resulting Agency Comment Spec In Lab Isaiah Hoyos MD HEMATOLOGY ORDERABL ES [facility] [place] [address] * (ABNORMAL) Basic Metabolic Panel (non-fasting) (2021 7:31 PM EDT) [facility] Glucose 244(H) 65 - 199 mg/dL [facility] [...] CHEMISTRY ORDERABLE S [facility] [place] [address] documented in this encounter Visit Diagnoses Not [...] 0932 (Given - Provider: Fabienne Morelos RN)1041 ([facility] Hold - Provider: Admin Adt - Reason: Transfer to a Procedural area)1224 ([facility] Unhold - Provider: Admin [...] 0932 (Given - Provider: Fabienne Morelos RN)1041 ([facility] Hold - Provider: Admin Adt - Reason: Transfer to a Procedural area)1224 ([facility] Unhold - Provider: Admin Adt) DULoxetine DR (Cymbalta) capsule 60 mg 60 mg, Oral, 2 TIMES DAILY, First dose on 06/08/21 at 2115, Until Discontinued, Routine 2140 (Given - Provider: Arturo Morris RN) 0837 (Given - Provider: Fabienne Morelos RN)2021 (Given - Provider: Emily Olmedo RN) 0932 (Given - Provider: Fabienne Morelos RN)1041 ([facility] Hold - Provider: Admin Adt - Reason: Transfer to a Procedural area)1224 ([facility] Unhold - Provider: Admin Adt) gabapentin (Neurontin) capsule 300 mg 300 mg, Oral, 3 TIMES DAILY, First dose on 06/08/21 at 2115, Until Discontinued, Routine 2140 (Given - Provider: Arturo Morris RN) 0837 (Given - Provider: Fabienne Morelos RN)152 (Given - Provider: Fabienne Morelos RN)202 (Given - Provider: Emily Olmedo RN) 0932 (Given - Provider: Fabienne Morelos RN)1041 ([facility] Hold - Provider: Admin Adt - Reason: Transfer to a Procedural area)1224 ([facility] Unhold - Provider: Admin Adt)1544 (Given - [...] - Reason: Transfer to a Procedural area)1224 ([facility] Unhold - Provider: Admin [...] - Reason: Transfer to a Procedural area)1224 ([facility] Unhold - Provider: Admin [...] - Reason: Transfer to a Procedural area)1224 ([facility] Unhold - Provider: Admin Adt)1238 (Given - Provider: Fabienne Morelos RN) rosuvastatin (Crestor) tablet 40 mg 40 mg, Oral, EVERY EVENING, First dose on Thu06/10/21 at 1700, Until Discontinued, Routine 1041 (OCT Hold - Provider: Admin Adt - Reason: Transfer to a Procedural area)1224 ([facility] Unhold - Provider: Admin Adt)1633 (Given - [...] of tube = 37.5 grams., Routine 1041 ([facility] Hold - Pro vider: Admin Adt - Reason: Transfer to a Procedural area)1224 ([facility] Unhold - Provider: Admin [...] Jose Damon MD - Comment: Contrast in Video Game Creator) lidocaine (Xylocaine) 1% (10 mg/mL) injection 3 mg 3 mg (0.3 mL), Subcutaneous, ONCE PRN, 1 dose, Starting on 06/08/21 at 1909, Until Thu06/10/21 at 2029, for discomfort with PIV insertion, Routine 1041 ([facility] Hold - Pro vider: Admin Adt - Reason: Transfer to a Procedural area)1224 ([facility] Unhold - Provider: Admin [...] - Reason: Transfer to a Procedural area)1224 ([facility] Unhold - Provider: Admin [...] - Reason: Transfer to a Procedural area)1224 ([facility] Unhold - Provider: Admin [...] Prov ider: Naye Song RN - Comment: Video Game Creator Flush Line) verapamiL (Isoptin) (2.5 mg/mL) injection [...] Routine documented in this encounter Care Teams Mirror Installer Relationship Specialty Start Date End Date Coni Lim MD [address] [place] [address] PCP - General 07/16/10 documented as of this encounter
--- OUTSIDE RECORDS SUMMARY | 2024-04-30 18:19 | XMS_ITS | Encounter Summary ---
Author Organization [facility] [place] [address] Care Team Providers Care Greenskeeper Head Name Role Phone Coni Lim MD Primary Care Provider [phone] Encounter Details Date Type Department Care Team (Late st Contact Info) Description 05/24/2020 Telephone [place] [address] Keeley Paredes MD [facility] [place] [address] Social History Tobacco Use Types Packs/Day Years [...] on filedocumented in this encounter Care Teams Greenskeeper Head Relationship Specialty Start Date End Date Coni Lim MD [address] [place] [address] PCP - General 07/16/10 documented as of this encounter
--- OUTSIDE RECORDS SUMMARY | 2024-04-30 18:19 | XMS_ITS | Encounter Summary ---
Author Organization [facility] Address [facility] [place] [address] Care Team Providers Care Forensic Document Examiner Name Role Phone Coni Lim MD Primary Care Provider [phone] Reason for Visit * Reason Onset Date Comments Procedure 05/24/2020 Encounter Details Date Type Department Care Team (Latest Contact Info) Description 05/24/2020 11:15 AM EDT Procedure [place] [address] Keeley Paredes MD [facility] [place] [address] Conjunctival lesion Social History Tobacco Use Types [...] AM EDT 05/24/2020 11:19 AM EDT Narrative [facility] - 05/24/2020 11:19 AM EDT Specimen requisition ordered. ??Separate Pathology report to follow Keeley Paredes MD PATHOLOGY/CYTOLOGY O RDERABLES [facility] [place] [address] * Surgical Pathology Report (05/24/2020 11:09 AM EDT) Final Diagnosis [id number] ? Location: The signing pathologist has (i) examined the relevant preparation(s) for the specimen(s) and (ii) rendered or confirmed the diagnosis(es). . ?Surgical Pathology DIAGNOSIS A - Eye, right caruncle cystic lesion, biopsy: Dermoid cyst. Electronically signed by: ??Wendy Oneill MD Verified: ??05/30/2020 ?Pathologist Performed at: ??-[facility] Dept. of Pathology, [place], [place] DISCUSSION Multiple deeper levels were examined. SPECIMEN(S) SUBMITTED A - right caruncle cystic lesion, biopsy (1) CLINICAL INFORMATION Right caruncle cystic lesion x1 year, irritating SPECIMEN PROCESSING A - Labeled/Fixativ e: Right eye, formalin. Quantity/Size: Two, 0.2 and 0.4 cm. Tissue Description: Soft, rubbery, yellow-walters tissues. Sections/Proces sing: Submitted en toto ??in 1 cassette labeled A1. ??shb 05/30/2020 3:05 PM EDT [facility] BIOPSY SPECIMEN / Unknown 05/24/2020 11:09 AM EDT 05/24/2020 11:09 AM EDT Keeley Paredes MD PATHOLOGY/CYTOLOGY O RDERABLES [facility] [place] [address] documented in this encounter Visit Diagnoses Diagnosis Conjunctival lesion Unspecified disorder of conjunctiva documented in this encounter Care Teams Forensic Document Examiner Relationship Specialty Start Date End Date Coni Lim MD [address] [place] [address] PCP - General 07/16/10 documented as of this encounter
--- OUTSIDE RECORDS SUMMARY | 2024-04-30 18:19 | XMS_ITS | Encounter Summary ---
Author Organization [facility] Address [facility] [place] [address] Care Team Providers Care Big 6 Dealer Name Role Phone Coni Lim MD Primary Care Provider [phone] Encounter Details Date Type Department Care Team (Late st Contact Info) Description 09/28/2019 Telephone [place] [address] Keeley Paredes MD [facility] [place] [place] [address] Social History Tobacco Use Types Packs/Day Years [...] on filedocumented in this encounter Care Teams Big 6 Dealer Relationship Specialty Start Date End Date Coni Lim MD [address] [place] [address] PCP - General 07/16/10 documented as of this encounter
--- OUTSIDE RECORDS SUMMARY | 2024-04-30 18:19 | XMS_ITS | Encounter Summary ---
Author Organization [facility] Address [facility] [place] [address] Care Team Providers Care House Builder Name Role Phone Coni Lim MD Primary Care Provider [phone] Encounter Details Date Type Department Care Team (Late st Contact Info) Description 06/07/2021 Telephone Cardiology at [address] [phone] Coni Wilson PA [facility] [place] [address] Social History Tobacco Use Types Packs/Day Years [...] Referring Provider: Maria Luisa GROVER Patient Location: [facility] ([facility]) Past Medical History: 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 ER provider spoke with local power supply engineer (Dr. Gutierrez) who recommended speaking with for transfer for [facility]. Vital Signs: HR 80s, SBP 110s Pertinent [...] angina. Troponin negative x1. EKG nonischemic. OSH power supply engineer recommended transfer for C. Loaded with ASA [...] management. Coni Lew PA-C Cardiovascular Medicine Pager [phone] 06/07/2021 documented in this encounter Plan of Treatment Not on file documented as of this encounter Visit Diagnoses Not on filedocumented in this encounter Care Teams House Builder Relationship Specialty Start Date End Date Coni Lim MD [address] [place] [address] PCP - General 07/16/10 documented as of this encounter
--- OUTSIDE RECORDS SUMMARY | 2024-04-30 18:20 | XMS_ITS | Encounter Summary ---
Author Organization [facility] Address [facility] [place] [address] Care Team Providers Care Desk Operator Name Role Phone Coni Lim MD Primary Care Provider [phone] Reason for Visit * Auth/Cert Specialty Diagnoses / Procedures Referred By Ruby t Referred To Contact Diagnoses ACS (acute coronary syndrome) UNSTABLE ANGINA Referral ID Status Reason Start Date Expiration Date Visits Re quested Visits Authorized [id number] 1 1 Encounter Details Date Type Department Care Team (Latest Contact Info) Description 03/14/2019 12:38 AM EDT - 03/16/2019 3:55 PM EDT Hospital Encounter [place] [id number] Wale Mckeon MD [facility] [place] [address] [place] [address] Unstable angina Discharge Disposition: Home Social History [...] Romeo Coe Patient Age: 53 y.o. Language: Ethiopian Race: White Ethnicity: Not nor Admit date: [...] Contact Information: MD Esperanza Solis, KRYSTINA Bush, FAMILY PRACTICE NURSE PRACTITIONER [phone] Discharge Diagnoses (Hospital Problems) and Secondary Diagnoses [...] TIA and GERD who was transferred from [facility] with a diagnosis of UAP. ?? He [...] was called. ?? His last admission to [facility] was in Aug 2017 when he presented [...] started on Heparin gtt and transferred to [facility] for cardiac cath. Hospital Course: Undifferentiated Chest Pain - Coronary Vasospasm/Microvessel angina vs Non- Cardiac Chest Pain Romeo Coe is a 53 yo M transferred from [facility] for evaluation of unstable angina. Troponins negative. [...] PF, Split 07/30/2013 ??? Influenza Vaccine (Novel) [id number], Injectable 05/24/2009 ??? Influenza Vaccine w/Preservative, Split [...] appointments: During 8am-5pm Thursday through Thursday call [phone] to speak with a nurse in the cardiology clinic All other times call [phone] and ask to speak to the medical office professional instructor data visualization developer. Return to work: Ok to resume, no heavy lifting for one week (nothing over 10 lbs) Driving: No driving for 48 hours after catheterization. Follow up Appointments: PCP Coni Lim MD/Keo Ballard [phone] Your follow up appointment is scheduled for March 25, 2019 at 10 45 am Cardiology- Dr. Lawson - [phone] (First apt at [facility], then you will be seen at [facility] thereafter).Your follow up appointment is scheduled for Saturday April 13, 2019 at 1:15 pm Home oxygen therapy: N/A Arrangements for VNA/home care: none Discharge References/Attachments None Esperanza Collier APRN Cardiovascular Medicine Pager [phone] 03/16/2019 documented in this encounter Discharge Instructions * Discharge Instructions* Esperanza Collier APRN - 03/16/2019 3:00 PM EDT Call your doctor if: Chest pain, shortness of breath, pain or swelling in legs occurs. If you have non-emergent questions between now and the time of your follow up appointments: During 8am-5pm Thursday through Thursday call [phone] to speak with a nurse in the cardiology clinic All other times call [phone] and ask to speak to the medical office professional instructor data visualization developer. Return to work: Ok to resume, no heavy lifting for one week (nothing over 10 lbs) Driving: No driving for 48 hours after catheterization. Follow up Appointments: PCP Coni Lim MD/Keo Ballard [phone] Your follow up appointment is scheduled for March 25, 2019 at 10 45 am Cardiology- Dr. Lawson - [phone] (First apt at [facility], then you will be seen at [facility] thereafter).Your follow up appointment is scheduled for [...] Progress Note Patient Name: Romeo Coe Service: ECHOCARDIOGRAPHY RADIOLOGY TECHNOLOGIST / PA Responsible Attending: Wale Mckeon MD [...] Full code Discussed with MD Esperanza Brar [facility] Cardiovascular Medicine Pager [phone] 03/16/2019 Attending Systems Spec Addendum: This patient was seen in conjunction with Esperanza Collier as part of a shared visit. I have independently interviewed and examined the patient and reviewed the pertinent diagnostic information. I agree with the principal findings documented above. The assessment and plan were formulated in discussion with me. Ruled out PE with CT today. Ready for discharge on medical therapies. Wale Mckeon MD, [facility] Staff Systems Spec pager [phone] * Jacqueline Montes De Oca RN - [...] Progress Note Patient Name: Romeo Coe Service: ECHOCARDIOGRAPHY RADIOLOGY TECHNOLOGIST / PA Responsible Attending: Wale Mckeon MD Reason for continued hospitalization: Evaluation and management of unstable angina S/p [facility] Medication adjustment Active Problems: Active Hospital Problems [...] Full code Discussed with MD Esperanza Brar [facility] Cardiovascular Medicine Pager [phone] 03/15/2019 Attending Systems Spec Addendum: This patient was seen in conjunction [...] limited us thus far. Wale Mckeon MD, [facility], [facility] Staff Systems Spec pager [phone] * Wale Mckeon MD - 03/14/2019 9:23 AM EDT Images from the original note were not included. Inpatient Cardiology Progress Note Patient Name: Romeo Coe Service: ECHOCARDIOGRAPHY RADIOLOGY TECHNOLOGIST / PA Responsible Attending: Wale Mckeon MD Reason for continued hospitalization: Evaluation and management of unstable angina Awaiting [facility] today Active Problems: Active Hospital Problems Diagnosis ??? ACS (acute coronary syndrome) Resolved Hospital Problems No resolved problems to display. Interval History: Admitted overnight in the setting of unstable angina. Troponins negative. TTE with preserved EF at 63% and no WMA. Awaiting [facility] today. Review of Systems: Review of Systems [...] Full code Discussed with MD Siri Brar, FAMILY PRACTICE NURSE PRACTITIONER Pager [phone] 03/14/2019 Attending Systems Spec Addendum: This patient was seen in conjunction [...] today (include vasodilator) Wale Mckeon MD, FAC, [facility] Staff Systems Spec pager [phone] documented in this encounter H&P Notes * [...] TIA and GERD who was transferred from [facility] with a diagnosis of UAP. He presented [...] EMS was called. His last admission to [facility] was in Aug 2017 when he presented [...] started on Heparin gtt and transferred to [facility] for cardiac cath. Past Medical History: Past [...] of Onset ??? Myocardial Infarction Father 46 [place], CABG ??? Heart Disease Father ??? Diabetes [...] file Gets together: Not on file Attends congregational service: Not on file Active member of [...] Lives with and daughter at home in [place], [place]. He is disabled now. He used [...] edema . Pulses palpable, no calf tenderness Neuro/SALES APPLICATIONS ENGINEER: AAO x 3, No evident deficits Skin/Integumentary: [...] multiple PCIs since 2011. Last Cath at [facility] in Aug 2017 that showed the patency [...] with good effect. Right radial cath site [facility], +pulses, no hematoma present. Pt able to [...] OUTCOME EVALUATION NOTE: OUTCOME SUMMARY: Patient to cathode maker today. No interventions. Right radial cath site [...] TIA and GERD who was transferred from [facility] with a diagnosis of UAP Past Medical History: Diagnosis Date ??? Allergy ??? CAD (coronary artery disease), non-obstructive 05/31/2012 ??? Depression ??? DM (diabetes mellitus) 05/31/2012 ??? Dyslipidemia 05/31/2012 ??? GERD (gastroesophageal reflux disease) 05/31/2012 ??? HTN (hypertension) 05/31/2012 ??? Hx-TIA (transient ischemic attack) 06/03/2012 ??? Smoker 05/31/2012 Hospitalizations Within the Past 30 Days: no [facility] admits in last 30 days. Anticipated Length Of Stay (If known): 1-3 days Current Decision-Making Capacity: Patient is A&Ox4 and able to make all medical decisions Advance Care Planning: Full Code Not in EPIC.This author discussed ADs with patient and offered advance directive booklet and forms,patient deferred will discuss with family at a later time. [place] and [place] of guardianship explained. If AD's have not been completed then Spouse Dasia would be surrogate decision maker per [place] surrogate decision making law. Current Coping/Education/Information Needs: Current coping questions and concerns have been addressed. Current Functional Ability: assist of staff Functional Status Prior to Admission: independent with ADLs, driving, no DME used at baseline. Home Environment: lives in 2 level house, bedroom downstairs, no stairs to enter from outside. [address] [place] [address] Social & Family Supports/Community Resources: lives with spouse and daughter Extended Emergency Contact Information Primary Emergency Contact: Dasia Coe Address: [address] [place] [address] [facility] Relation: Spouse Health/Prescription Coverage: Primary Insurance: MEDICARE Secondary Insurance: N/A Prescription Coverage: Yes Preferred Pharmacy: [id number] [address] [address] Other: none Primary Care Provider: Coni Lim MD [phone] Patient/Caregiver Goals of Treatment: return to previous [...] of care planning. Rashmi Simmons, VERO Nurse Can Striper Pager [phone] * Op Note - Lexus Gutiérrez MD - 03/14/2019 10:54 AM EDT [facility] Operative Note Patient Name: Romeo Coe : [id number] MR#: [id number] Case Date: 03/14/2019 Surgeon: Surgeon(s) and Role: [...] evident early complications. Results discussed with service quilt stuffer Dr Mckeon, and with the patient. He did not have family that he preferred we call. He needs to be connected with a referring quilt stuffer locally (seen at [facility]). A time-out was conducted prior to the [...] Dean had a good night. Arrived from [facility] hospital on Heparin drip. Denied chest pain [...] further details. Ed Simpson MD 03/14/2019 Pager [phone] documented in this encounter Plan of Treatment [...] below. ? Electronically signed by: Adithya Hutchison [facility] ([phone]), at 03/16/2019 1:06 PM Narrative 03/16/2019 1:06 [...] number below. Electronically signed by: Adithya Hutchison [facility]([phone]), at 03/16/2019 1:06 PM Esperanza Collier APRN IMG CT ORDERABLES * POCT Glucose (03/16/2019 11:34 AM EDT) Glucose, POC 106 65 - 199 mg/dL [facility] Comment: Supplemental ranges: <140 mg/dL before meals <180 mg/dL all other times of the day Blood specimen (specimen) 03/16/2019 11:34 AM EDT 03/16/2019 11:34 AM EDT Wale Mckeon MD POINT OF CARE TEST O RDERABLES Performing Organization Address City/[facility]/ZIP Co de Phone Number [facility] [place] [address] * POCT Glucose (03/16/2019 7:38 AM EDT) Glucose, POC 102 65 - 199 mg/dL [facility] Comment: Supplemental ranges: <140 mg/dL before meals <180 mg/dL all other times of the day Blood specimen (specimen) 03/16/2019 7:38 AM EDT 03/16/2019 7:38 AM EDT Wale Mckeon MD POINT OF CARE TEST O RDERABLES Performing Organization Address [facility] Co de Phone Number [facility] [place] [address] * EKG 12 Lead (03/16/2019 7:07 AM EDT) Ventricular rate 59 BPM MUSE SYSTEM Atrial Rate 59 BPM MUSE SYSTEM P-R Interval 148 ms MUSE SYSTEM QRS Duration 88 ms MUSE SYSTEM Q-T Interval 408 ms MUSE SYSTEM QTC Calculated (Bezet) 403 ms MUSE SYSTEM Calculated P [place] 7 degrees MUSE SYSTEM Calculated R [place] 23 degrees MUSE SYSTEM Calculated T [place] 40 degrees MUSE SYSTEM INTERPRETATION Sinus bradycardia Otherwise normal ECG When compared with ECG of 15-MAR-2019 20:23, No significant change was found Confirmed by MD SOUMYA, JENNIFER ([id number]) on 03/16/2019 8:30:39 AM MUSE SYSTEM 03/16/2019 7:07 AM EDT 03/16/2019 8:30 AM EDT Siri Bush APRN ECG ORDERABLES Performing Organization Address City/[facility]/ZIP Co de Phone Number MUSE SYSTEM * Differential, Automated (03/16/2019 5:07 AM EDT) Neutrophil % 48.9 % [facility] Neutrophil Absolute 3.25 1.70 - 6.10 x10(3)/[facility] Lymph % 38.1 % [facility] Lymphocytes Abs 2.5 0.9 - 3.2 x10(3)/[facility] Monocyte % 8.0 % [facility] Monocyte Abs 0.5 0.3 - 0.9 x10(3)/[facility] Eos % 4.2 % [facility] Eosinophils Abs 0.3 0.0 - 0.4 x10(3)/[facility] Basophil % 0.5 % [facility] Baso Absolute 0.0 0.0 - 0.1 x10(3)/[facility] Immature Gran % 0.30 % [facility] Comment: Immature granulocytes(IG's)percentage and absolute count will include metamyelocytes, myelocytes, and promyelocytes. Blood smears from CBCs yielding IG's will be scanned manually for concordance. If this scan disagrees with the automated IG or if promyelocytes are noted, a manual differential will be performed. Immature Gran Absolute 0.02 0.00 - 0.04 x10(3)/[facility] Blood specimen (specimen) 03/16/2019 5:07 AM EDT 03/16/2019 5:24 AM EDT Narrative Resulting Agency Comment Spec In Lab Siri Bush FAMILY PRACTICE NURSE PRACTITIONER HEMATOLOGY ORDERAB LES Performing Organization Address City/State/[facility] Co de Phone Number [facility] [place] [address] * Hemogram (03/16/2019 5:07 AM EDT) White Blood Cell 6.6 4.0 - 9.5 x10(3)/[facility] Red Blood Cell 5.33 4.58 - 5.54 x10(6)/[facility] Hemoglobin 15.6 13.7 - 16.5 gm/dL [facility] Hematocrit 45.4 40.5 - 48.5 % [facility] Mean Cell Volume 85.2 82.9 - 93.1 fL [facility] Mean Cell Hemoglobin 29.3 27.5 - 32.1 pg [facility] Mean Cell Hemoglobin Concentration 34.4 32.0 - 35.7 gm/dL [facility] Platelet 154 145 - 357 x10(3)/[facility] RDW Standard Deviation 38.3 36.0 - 45.0 [facility] RDW coefficient of variation 12.5 11.4 - 13.8 % [facility] Mean Platelet Volume 10.9 7.6 - 12.9 [facility] NRBC% auto 0.0 % [facility] NRBC Absolute 0.000 0.000 - 0.000 x10(3)/[facility] Blood specimen (specimen) 03/16/2019 5:07 AM EDT 03/16/2019 5:24 AM EDT Narrative Resulting Agency Comment Spec In Lab Siri Bush APRN HEMATOLOGY ORDERAB LES [facility] [place] [address] * (ABNORMAL) BMP w/fasting Glucose (03/16/2019 5:07 AM EDT) Glucose Fasting 119(H) 65 - 99 mg/dL [facility] [...] of Diabetes Mellitus, Position Statement from the [place] Diabetes Association. ??Diabetes Care, Volume 33, Supplement 1, Aug 2009 Blood Urea Nitrogen 10 10 - 20 mg/dL [facility] Creatinine 0.91 0.80 - 1.50 mg/dL [facility] Sodium 138 135 - 145 mmol/L [facility] Potassium 3.6 3.5 - 5.0 mmol/L [facility] [...] mmol/L [facility] Anion Gap 12 5 - 15 mmol/L [facility] Calcium 9.2 8.5 - 10.5 mg/dL [facility] Est Glomerular Filtration Rate 97 >=60 mL/min/1. 73 m?? [facility] Comment: The eGFR was calculated using the CKD-EPI equation. As with all creatinine based estimates of kidney function, eGFR values calculated with the CKD-EPI equation are not accurate in patients with acute kidney failure, extremes of body mass or the acutely ill. http://[employer]/DHMCnkf eGFR 113 >=60 mL/min/1. 73 m?? [facility] Comment: The eGFR was calculated using the CKD-EPI equation. As with all creatinine based estimates of kidney function, eGFR values calculated with the CKD-EPI equation are not accurate in patients with acute kidney failure, extremes of body mass or the acutely ill. http://[employer]/DHMCnkf Blood specimen (specimen) 03/16/2019 5:07 AM EDT 03/16/2019 5:24 AM EDT Narrative Resulting Agency Comment Spec In Lab Siri Bush APRN CHEMISTRY ORDERABL ES [facility] [place] [address] * EKG 12 Lead (03/15/2019 8:23 PM EDT) Ventricular rate 65 BPM MUSE SYSTEM Atrial Rate 65 BPM MUSE SYSTEM P-R Interval 140 ms MUSE SYSTEM QRS Duration 86 ms MUSE SYSTEM Q-T Interval 384 ms MUSE SYSTEM QTC Calculated (Bezet) 399 ms MUSE SYSTEM Calculated P [place] 16 degrees MUSE SYSTEM Calculated R [place] 39 degrees MUSE SYSTEM Calculated T [place] 37 degrees MUSE SYSTEM INTERPRETATION Normal sinus rhythm Normal ECG When compared with ECG of 15-MAR-2019 10:49, No significant change was found Confirmed by MD SOUMYA, JENNIFER ([id number]) on 03/16/2019 12:17:34 AM MUSE SYSTEM 03/15/2019 8:23 PM EDT 03/16/2019 12:17 AM EDT Wale Mckeon MD ECG ORDERABLES Performing Organization Address City/[facility]/ZIP Co de Phone Number MUSE SYSTEM * POCT Glucose (03/15/2019 8:13 PM EDT) Glucose, POC 134 65 - 199 mg/dL [facility] Comment: Supplemental ranges: <140 mg/dL before meals <180 mg/dL all other times of the day Blood specimen (specimen) 03/15/2019 8:13 PM EDT 03/15/2019 8:13 PM EDT Wale Mckeon MD POINT OF CARE TEST O RDERABLES [facility] [place] [address] * POCT Glucose (03/15/2019 4:58 PM EDT) Glucose, POC 109 65 - 199 mg/dL [facility] Comment: Supplemental ranges: <140 mg/dL before meals <180 mg/dL all other times of the day Blood specimen (specimen) 03/15/2019 4:58 PM EDT 03/15/2019 4:58 PM EDT Wale Mckeon MD POINT OF CARE TEST O EVITA Performing Organization Address City/[facility]/ZIP Co de Phone Number [facility] [place] [address] * POCT Glucose (03/15/2019 11:47 AM EDT) Pathologist [facility] Glucose, POC 110 65 - 199 mg/dL [facility] Comment: Supplemental ranges: <140 mg/dL before meals <180 mg/dL all other times of the day Blood specimen (specimen) 03/15/2019 11:47 AM EDT 03/15/2019 11:47 AM EDT Wale Mckeon MD POINT OF CARE TEST O EVITA Performing Organization Address [facility] Co de Phone Number [facility] [place] [address] * Troponin (03/15/2019 11:17 AM EDT) [facility] Troponin-T <0.01 0.00 - 0.00 ng/mL [facility] Comment: The 99th percentile for Troponin T is less than 0.01 ng/mL, any detectable cTnT concentration using this assay should be considered elevated. According to the third universal definition of myocardial infarction the following criteria with a clinical presentation consistent with acute myocardial ischemia meets the diagnosis for a myocardial infarction (ME). Detection of a rise and/or fall of cTnT, with at least one value greater than the 99th percentile (> or = 0.01) and with at least one of the following ?? Symptoms of ischemia ?? New or presumed new significant LP-pglotoo-R wave (ST-T) changes or new left bundle [...] additional sample may be indicated. Reference: Third [place] Definition of Myocardial Infarction. Journal of the [place] College of Cardiology 2012;60:1581-98 Blood specimen (specimen) 03/15/2019 11:17 AM EDT 03/15/2019 11:42 AM EDT Narrative Resulting Agency Comment Spec In Lab Esperanza Collier KRYSTINA CHEMISTRY ORDERABLES Performing Organization Address [facility] Co de Phone Number [facility] [place] [phone] * EKG 12 Lead (03/15/2019 10:49 AM EDT) Ventricular rate 59 BPM MUSE SYSTEM Atrial Rate 59 BPM MUSE SYSTEM P-R Interval 140 ms MUSE SYSTEM QRS Duration 86 ms MUSE SYSTEM Q-T Interval 398 ms MUSE SYSTEM QTC Calculated (Bezet) 394 ms MUSE SYSTEM Calculated P [place] 13 degrees MUSE SYSTEM Calculated R [place] 42 degrees MUSE SYSTEM Calculated T [place] 49 degrees MUSE SYSTEM INTERPRETATION Sinus bradycardia Otherwise normal ECG When compared with ECG of 15-MAR-2019 07:08, No significant change was found Confirmed by MD Buchanan Timothy ([id number]) on 03/15/2019 12:09:31 PM MUSE SYSTEM 03/15/2019 10:4 9 AM EDT 03/15/2019 12:09 PM EDT Esperanza Vicki Collier APRN ECG ORDERABLES Performing Organization Address [facility] Phone Number MUSE SYSTEM * POCT Glucose (03/15/2019 7:57 AM EDT) Glucose, POC 114 65 - 199 mg/dL [facility] Comment: Supplemental ranges: <140 mg/dL before meals <180 mg/dL all other times of the day Blood specimen (specimen) 03/15/2019 7:57 AM EDT 03/15/2019 7:57 AM EDT Wale Mckeon MD POINT OF CARE TEST O RDERABLES Performing Organization Address [facility] Co de Phone Number [facility] [place] [address] * EKG 12 Lead (03/15/2019 7:08 AM EDT) Ventricular rate 58 BPM MUSE SYSTEM Atrial Rate 58 BPM MUSE SYSTEM P-R Interval 140 ms MUSE SYSTEM QRS Duration 90 ms MUSE SYSTEM Q-T Interval 410 ms MUSE SYSTEM QTC Calculated (Bezet) 402 ms MUSE SYSTEM Calculated P [place] 5 degrees MUSE SYSTEM Calculated R [place] 24 degrees MUSE SYSTEM Calculated T [place] 34 degrees MUSE SYSTEM INTERPRETATION Sinus bradycardia Otherwise normal ECG When compared with ECG of 14-MAR-2019 19:41, No significant change was found Confirmed by MD SOUMYA, JENNIFER ([id number]) on 03/15/2019 9:53:01 AM MUSE SYSTEM 03/15/2019 7:08 AM EDT 03/15/2019 9:53 AM EDT Siri Panchal Paden KRYSTINA ECG ORDERABLES MUSE SYSTEM * Differential, Automated (03/15/2019 5:01 AM EDT) Pathologist [facility] Neutrophil % 46.9 % [facility] Neutrophil Absolute 2.78 1.70 - 6.10 x10(3)/[facility] Lymph % 40.6 % [facility] Lymphocytes Abs 2.4 0.9 - 3.2 x10(3)/[facility] Monocyte % 7.7 % [facility] Monocyte Abs 0.5 0.3 - 0.9 x10(3)/[facility] Eos % 3.7 % [facility] Eosinophils Abs 0.2 0.0 - 0.4 x10(3)/[facility] Basophil % 0.8 % [facility] Baso Absolute 0.0 0.0 - 0.1 x10(3)/[facility] Immature Gran % 0.30 % [facility] Comment: Immature granulocytes(IG's)percentage and absolute count will include metamyelocytes, myelocytes, and promyelocytes. Blood smears from CBCs yielding IG's will be scanned manually for concordance. If this scan disagrees with the automated IG or if promyelocytes are noted, a manual differential will be performed. Immature Gran Absolute 0.02 0.00 - 0.04 x10(3)/[facility] Blood specimen (specimen) 03/15/2019 5:01 AM EDT 03/15/2019 5:12 AM EDT Narrative Resulting Agency Comment Spec In Lab Siri Bush APRN HEMATOLOGY ORDERAB LES [facility] [place] [address] * Hemogram (03/15/2019 5:01 AM EDT) White Blood Cell 5.9 4.0 - 9.5 x10(3)/[facility] Red Blood Cell 4.95 4.58 - 5.54 x10(6)/[facility] Hemoglobin 14.6 13.7 - 16.5 gm/dL [facility] Hematocrit 43.1 40.5 - 48.5 % [facility] Mean Cell Volume 87.1 82.9 - 93.1 [facility] Mean Cell Hemoglobin 29.5 27.5 - 32.1 pg [facility] Mean Cell Hemoglobin Concentration 33.9 32.0 - 35.7 gm/dL [facility] Platelet 156 145 - 357 x10(3)/[facility] RDW Standard Deviation 40.2 36.0 - 45.0 [facility] RDW coefficient of variation 12.5 11.4 - 13.8 % [facility] Mean Platelet Volume 10.4 7.6 - 12.9 [facility] NRBC% auto 0.0 % [facility] NRBC Absolute 0.000 0.000 - 0.000 x10(3)/[facility] Blood specimen (specimen) 03/15/2019 5:01 AM EDT 03/15/2019 5:12 AM EDT Narrative Resulting Agency Comment Spec In Lab Siri Bush FAMILY PRACTICE NURSE PRACTITIONER HEMATOLOGY ORDERAB LES [facility] [place] [address] * (ABNORMAL) BMP w/fasting Glucose (03/15/2019 5:01 AM EDT) Glucose Fasting 120(H) 65 - 99 mg/dL [facility] [...] of Diabetes Mellitus, Position Statement from the [place] Diabetes Association. ??Diabetes Care, Volume 33, Supplement 1, Aug 2009 Blood Urea Nitrogen 11 10 - 20 mg/dL [facility] Creatinine 0.90 0.80 - 1.50 mg/dL [facility] Sodium 142 135 - 145 mmol/L [facility] Potassium 3.8 3.5 - 5.0 mmol/L [facility] Comment: Please note: ??Patients with WBC >100,000 may have falsely elevated Potassium levels. ??For accurate Potassium quantification in these patients send serum separator tube (gold top) for subsequent determinations. ??Contact the Clinical Chemistry Laboratory if there are any questions. Chloride 109(H) 98 - 107 mmol/L [facility] Carbon Dioxide 23 22 - 31 mmol/L [facility] Anion Gap 10 5 - 15 mmol/L [facility] Calcium 9.1 8.5 - 10.5 mg/dL [facility] Est Glomerular Filtration Rate 99 >=60 mL/min/1. 73 m?? [facility] Comment: The eGFR was calculated using the CKD-EPI equation. As with all creatinine based estimates of kidney function, eGFR values calculated with the CKD-EPI equation are not accurate in patients with acute kidney failure, extremes of body mass or the acutely ill. http://[employer]/[facility] [place]nkf eGFR 114 >=60 mL/min/1. 73 m?? [facility] Comment: The eGFR was calculated using the CKD-EPI equation. As with all creatinine based estimates of kidney function, eGFR values calculated with the CKD-EPI equation are not accurate in patients with acute kidney failure, extremes of body mass or the acutely ill. http://[employer]/[facility] [place] Blood specimen (specimen) 03/15/2019 5:01 AM EDT 03/15/2019 5:12 AM EDT Narrative Resulting Agency Comment Spec In Lab Siri Bush APRN CHEMISTRY ORDERABL ES [facility] [place] [address] * (ABNORMAL) Hemoglobin A1c (03/15/2019 5:01 AM EDT) Hemoglobin A1c 6.8(H) 4.3 - 5.6 % [facility] [...] Mellitus, Diabetes Care 2013; 36: Suppl. 1, P67-53 Estimated Average Glucose 148 mg/dL [facility] Comment: eAG [...] into estimated average glucose values. ??Diabetes Care 2008:31(8):9638-2441. Blood specimen (specimen) 03/15/2019 5:01 AM EDT 03/15/2019 5:12 AM EDT Narrative Resulting Agency Comment Spec In Lab Siri Bush APRN CHEMISTRY ORDERABL ES [facility] [place] [address] * Lipid Panel (03/15/2019 5:01 AM EDT) Cholesterol, Total 207 mg/dL [facility] Comment: Lower Risk: <200 mg/dL Average Risk: 200-239 mg/dL Higher Risk: >bw=567 mg/dL Triglyceride 256 mg/dL [facility] Comment: Average Risk/Lower Risk: <150 mg/dL Borderline High Risk: 150-199 mg/dL High Risk: 200-499 mg/dL Very High Risk: >hu=667 mg/dL HDL Cholesterol 28 mg/dL [facility] Comment: Males: ?? Higher Risk: <40 mg/dL Females: ?? HIgher Risk: <50 mg/dL LDL Cholesterol 128 mg/dL [facility] Comment: Lowest Risk: <100 mg/dL Lower Risk: 100-129 mg/dL Borderline High Risk: 130-159 mg/dL High Risk: 160-189 mg/dL Very High Risk: >mh=827 mg/dL Cholesterol/HDL Ratio 7.4 ratio [facility] Lipid Interpretation See Note [facility] Comment: Lipid management should be guided by a patient? s ASCVD risk, goals and preferences. ACC/AHA Guidelines recommend high intensity statin if clinical ASCVD or LDL greater than or equal to 190 mg/dL. http://[employer]/DEW-HKS-Xpikeyxmh Adults aged 40-75 with LDL 70-189 mg/dL should have their 10 year ASCVD risk estimated with the ACC/AHA ASCVD risk supervisor estimator and drafter http://tools.acc.org/XLBRK-Gdux-Aallkkufg/ Statin should be discussed if risk greater [...] Lab Siri Bush APRN CHEMISTRY ORDERABL ES [facility] [place] [address] * POCT Glucose (03/14/2019 7:50 PM EDT) Glucose, POC 123 65 - 199 mg/dL [facility] Comment: Supplemental ranges: <140 mg/dL before meals <180 mg/dL all other times of the day Blood specimen (specimen) 03/14/2019 7:50 PM EDT 03/14/2019 7:50 PM EDT Wale Mckeon MD POINT OF CARE TEST O RDERABLES Performing Organization Address [facility] Co de Phone Number [facility] [place] [address] * EKG 12 Lead (03/14/2019 7:41 PM EDT) [facility] Ventricular rate 59 BPM MUSE SYSTEM Atrial Rate 59 BPM MUSE SYSTEM P-R Interval 142 ms MUSE SYSTEM QRS Duration 80 ms MUSE SYSTEM Q-T Interval 396 ms MUSE SYSTEM QTC Calculated (Bezet) 392 ms MUSE SYSTEM Calculated P [place] 40 degrees MUSE SYSTEM Calculated R [place] 37 degrees MUSE SYSTEM Calculated T [place] 46 degrees MUSE SYSTEM INTERPRETATION Sinus bradycardia Otherwise normal ECG When compared with ECG of 14-MAR-2019 01:06, No significant change was found Confirmed by MD SOUMYA, JENNIFER ([id number]) on 03/15/2019 9:52:58 AM MUSE SYSTEM 03/14/2019 7:41 PM EDT 03/15/2019 9:52 AM EDT Wale Mckeon MD ECG ORDERABLES Performing Organization Address [facility] de Phone Number MUSE SYSTEM * POCT Glucose (03/14/2019 4:21 PM EDT) [facility] Glucose, POC 128 65 - 199 mg/dL [facility] Comment: Supplemental ranges: <140 mg/dL before meals <180 mg/dL all other times of the day Blood specimen (specimen) 03/14/2019 4:21 PM EDT 03/14/2019 4:21 PM EDT Wale Mckeon MD POINT OF CARE TEST O RDERABLES Performing Organization Address [facility] Co de Phone Number [facility] [place] [address] * Troponin (03/14/2019 3:10 PM EDT) [facility] Troponin-T <0.01 0.00 - 0.00 ng/mL [facility] Comment: The 99th percentile for Troponin T is less than 0.01 ng/mL, any detectable cTnT concentration using this assay should be considered elevated. According to the third universal definition of myocardial infarction the following criteria with a clinical presentation consistent with acute myocardial ischemia meets the diagnosis for a myocardial infarction (ME). Detection of a rise and/or fall of cTnT, with at least one value greater than the 99th percentile (> or = 0.01) and with at least one of the following ?? Symptoms of ischemia ?? New or presumed new significant NR-jvjmwhy-H wave (ST-T) changes or new left bundle [...] additional sample may be indicated. Reference: Third [place] Definition of Myocardial Infarction. Journal of the [place] College of Cardiology 2012;60:1581-98 Blood specimen (specimen) 03/14/2019 3:10 PM EDT 03/14/2019 3:19 PM EDT Narrative Resulting Agency Comment Spec In Lab Wale Mckeon MD CHEMISTRY ORDERABLES Performing Organization Address City/State/[facility] Co de Phone Number [facility] [place] [address] * XR Chest PA or AP 1 [...] Glucose, POC 96 65 - 199 mg/dL [facility] Comment: Supplemental ranges: <140 mg/dL before meals <180 mg/dL all other times of the day Blood specimen (specimen) 03/14/2019 11:41 AM EDT 03/14/2019 11:41 AM EDT Wale Mckeon MD POINT OF CARE TEST O RDERABLES [facility] [place] [address] * CARDIAC CATHETERIZATION (03/14/2019 10:55 AM EDT) Anatomical Region Laterality Modality Other Narrative 03/15/2019 4:29 PM EDT ?[facility] ? Cardiac Catheterization/Intervention Report ? Patient Name: Coe, Romeo A. ? Procedure Date: 03/14/2019 ? A #: [id number] ? Primary Physician: Lexus Gutiérrez ? Case #: [id number] ? File Name: [id number] ? Catheterization Order Number: [id number] ? [facility] ? Final Report [place], [place] ? Patient Name: ? Romeo Coe ? ID#: ?[id number] ? : ?1965 ? Procedure Date: ? [...] procedure was Urgent. The indication for ?the cathode maker visit is ACS less than or equal [...] Procedure Note Lexus Gutiérrez MD - 08/13/2019 [facility] Cardiac Catheterization/Intervention Report Patient Name: Romeo Coe Procedure Date: 03/14/2019 A #: [id number] Primary Physician: Lexus Gutiérrez Case #: File Name: [id number] Catheterization Order Number: [id number] [facility] FinalReport [place], [place] Patient Name: Romeo Coe ID#:[id number] :1965 Procedure Date: March 14, 2019 Case [...] designated as ASAClass III. The [facility] clinical frailty scale is 2: Well. Diagnostic Tests: Prior Coronary Angiography: Prior coronary angiography was performed on 09/13/2017 andshowed non-obstructive CAD. LV ejection fraction within 6 months is63%. Electrocardiography: EKG was assessed by ECG. EKG was Normal. Medications Prior to Procedure: ASA, Beta Agatha and Statin. Indications for Diagnostic Cath: The priority of the diagnostic procedure was Urgent. The indicationfor the cathode maker visit is ACS less than or equal [...] EDT) Troponin-T <0.01 0.00 - 0.00 ng/mL [facility] Comment: The 99th percentile for Troponin T is less than 0.01 ng/mL, any detectable cTnT concentration using this assay should be considered elevated. According to the third universal definition of myocardial infarction the following criteria with a clinical presentation consistent with acute myocardial ischemia meets the diagnosis for a myocardial infarction (ME). Detection of a rise and/or fall of cTnT, with at least one value greater than the 99th percentile (> or = 0.01) and with at least one of the following ?? Symptoms of ischemia ?? New or presumed new significant OH-ygrrwuw-M wave (ST-T) changes or new left bundle [...] additional sample may be indicated. Reference: Third [place] Definition of Myocardial Infarction. Journal of the [place] College of Cardiology 2012;60:1581-98 Blood specimen (specimen) 03/14/2019 8:53 AM EDT 03/14/2019 9:06 AM EDT Narrative Resulting Agency Comment Spec In Lab Wale Mckeon MD CHEMISTRY ORDERABLES [facility] [place] [address] * (ABNORMAL) Differential, Automated (03/14/2019 8:53 AM EDT) Neutrophil % 33.7 % [facility] Neutrophil Absolute 2.11 1.70 - 6.10 x10(3)/ L [facility] Lymph % 52.4 % [facility] Lymphocytes Abs 3.3(H) 0.9 - 3.2 x10(3)/ L [facility] Monocyte % 7.6 % [facility] Monocyte Abs 0.5 0.3 - 0.9 x10(3)/mc L [facility] Eos % 4.9 % [facility] Eosinophils Abs 0.3 0.0 - 0.4 x10(3)/[facility] Basophil % 1.1 % [facility] Baso Absolute 0.1 0.0 - 0.1 x10(3)/ L [facility] Immature Gran % 0.30 % [facility] Comment: Immature granulocytes(IG's)percentage and absolute count will include metamyelocytes, myelocytes, and promyelocytes. Blood smears from CBCs yielding IG's will be scanned manually for concordance. If this scan disagrees with the automated IG or if promyelocytes are noted, a manual differential will be performed. Immature Gran Absolute 0.02 0.00 - 0.04 x10(3)/mc L [facility] Blood specimen (specimen) 03/14/2019 8:53 AM EDT 03/14/2019 9:06 AM EDT Narrative Resulting Agency Comment Spec In Lab Ed Simpson MD HEMATOLOGY ORDERABLE S [facility] [place] [address] * Hemogram (03/14/2019 8:53 AM EDT) White Blood Cell 6.3 4.0 - 9.5 x10(3)/[facility] Red Blood Cell 5.11 4.58 - 5.54 x10(6)/[facility] Hemoglobin 14.9 13.7 - 16.5 gm/dL [facility] Hematocrit 44.2 40.5 - 48.5 % [facility] Mean Cell Volume 86.5 82.9 - 93.1 [facility] Mean Cell Hemoglobin 29.2 27.5 - 32.1 pg [facility] Mean Cell Hemoglobin Concentration 33.7 32.0 - 35.7 gm/dL [facility] Platelet 156 145 - 357 x10(3)/[facility] RDW Standard Deviation 40.3 36.0 - 45.0 [facility] RDW coefficient of variation 12.6 11.4 - 13.8 % [facility] Mean Platelet Volume 10.7 7.6 - 12.9 [facility] NRBC% auto 0.0 % [facility] NRBC Absolute 0.000 0.000 - 0.000 x10(3)/[facility] Blood specimen (specimen) 03/14/2019 8:53 AM EDT 03/14/2019 9:06 AM EDT Narrative Resulting Agency Comment Spec In Lab Ed Simpson MD HEMATOLOGY ORDERABLE S [facility] [place] [address] * Heparin (unfractionated) Level (03/14/2019 8:53 AM EDT) Pathologist [facility] UF Heparin 0.37 IU/mL [facility] Comment: [...] MD HEMATOLOGY ORDERABLE S Performing Organization Address [facility]/State/[facility] Co de Phone Number [facility] [place] [address] * ECHO COMPLETE (03/14/2019 8:37 AM EDT) [facility] EF 63 HEARTLAB SYSTEM Anatomical Region Laterality Modality Other 03/14/2019 Narrative 03/14/2019 8:45 AM EDT Procedure: ?Transthoracic Echocardiogram Patient: ?LAQUITA Pop ? (Age): 1965(53y) Med Rec#: ? [id number] ?Sex: ?M ? Site Loc: ? [facility] ?Ht / Wt: ??177(cm)/101(kg) Pt. Loc: ?Adult Floor ? BSA: ?2.18 Study Date: ?? 03/14/2019 ?Pt. Type: Inpatient Tape: ? Referring: Ed Simpson Reading: Christos Buchanan ([id number]) Master Cosmetologist: Yessi Webb [facility] Diagnosis: *Unstable angina (I20.0) BP: ? [...] E-wave Vmax ?0.6 ?m/sec ? MV deceleration [id number] ?msec ? MV A-wave Vmax ?0.4 ?m/sec [...] ? Mid-Inferior ?Normal ? Mid-Inferoseptal ?Normal ? [place]-Septal ? Normal ? [place]-Anterior ? Normal ? [place]-Lateral ?Normal ? [place]-Inferior ? Normal ? [place]-Tip ?Normal ? This report has been electronically signed by: Christos Buchanan M.D. ? 03/14/2019 08:45:08 Images reviewed and interpretation verified [facility] Procedure Note Christos Buchanan MD - 03/14/2019 Procedure: Transthoracic Echocardiogram Patient: LAQUITA Pop (Age): 1965(53y) Med Rec#: [id number] Sex: M Site Loc: [facility] Ht / Wt: 177(cm)/101(kg) Pt. Loc: Adult Floor BSA: 2.18 Study Date: 03/14/2019 Pt. Type: Inpatient Tape: Referring: Ed Simpson Reading: Christos Buchanan ([id number]) Master Cosmetologist: Yessi Webb [facility] Diagnosis: *Unstable angina (I20.0) BP: 104/58 [...] MV E-wave Vmax 0.6 m/sec MV deceleration [id number] msec MV A-wave Vmax 0.4 m/sec MV [...] Normal Mid-Posterolateral Normal Mid-Inferior Normal Mid-Inferoseptal Normal [place]-Septal Normal [place]-Anterior Normal [place]-Lateral Normal [place]-Inferior Normal [place]-Tip Normal This report has been electronically signed by: Christos Buchanan M.D. 03/14/2019 08:45:08 Images reviewed and interpretation verified [facility] Ed Simpson MD ECHO [...] CARE TEST O RDERABLES Performing Organization Address [facility] Co de Phone Number [facility] [place] [address] * (ABNORMAL) Chloride (03/14/2019 3:28 AM EDT) Chloride 108(H) 98 - 107 mmol/L [facility] Blood specimen (specimen) 03/14/2019 3:28 AM EDT 03/14/2019 3:32 AM EDT Narrative Resulting Agency Comment Spec In Lab Wale Mckeon MD CHEMISTRY ORDERABLES Performing Organization Address [facility] Co de Phone Number [facility] [place] [address] * Troponin (03/14/2019 3:28 AM EDT) Troponin-T <0.01 0.00 - 0.00 ng/mL [facility] Comment: The 99th percentile for Troponin T is less than 0.01 ng/mL, any detectable cTnT concentration using this assay should be considered elevated. According to the third universal definition of myocardial infarction the following criteria with a clinical presentation consistent with acute myocardial ischemia meets the diagnosis for a myocardial infarction (ME). Detection of a rise and/or fall of cTnT, with at least one value greater than the 99th percentile (> or = 0.01) and with at least one of the following ?? Symptoms of ischemia ?? New or presumed new significant NP-dvgfkgi-W wave (ST-T) changes or new left bundle [...] additional sample may be indicated. Reference: Third [place] Definition of Myocardial Infarction. Journal of the [place] College of Cardiology 2012;60:1581-98 Blood specimen (specimen) 03/14/2019 3:28 AM EDT 03/14/2019 3:32 AM EDT Narrative Resulting Agency Comment Spec In Lab Wale Mckeon MD CHEMISTRY ORDERABLES Performing Organization Address [facility] Co de Phone Number [facility] [place] [address] * Sodium (03/14/2019 3:28 AM EDT) Sodium 140 135 - 145 mmol/L [facility] Blood specimen (specimen) 03/14/2019 3:28 AM EDT 03/14/2019 3:32 AM EDT Narrative Resulting Agency Comment Spec In Lab Wale Mckeon MD CHEMISTRY ORDERABLES Performing Organization Address [facility] Phone Number [facility] [place] [address] * Potassium (03/14/2019 3:28 AM EDT) Potassium 3.7 3.5 - 5.0 mmol/L [facility] [...] Mckeon MD CHEMISTRY ORDERABLES Performing Organization Address [facility] de Phone Number [facility] [place] [address] * Heparin (unfractionated) Level (03/14/2019 2:46 AM EDT) UF Heparin 0.57 IU/mL [facility] Comment: [...] MD HEMATOLOGY ORDERABLE S Performing Organization Address City/State/[facility] Co de Phone Number [facility] [place] [address] * (ABNORMAL) Differential, Automated (03/14/2019 1:50 AM EDT) Neutrophil % 38.9 % [facility] Neutrophil Absolute 3.10 1.70 - 6.10 x10(3)/mc L [facility] Lymph % 49.6 % [facility] Lymphocytes Abs 4.0(H) 0.9 - 3.2 x10(3)/mc L [facility] Monocyte % 6.3 % [facility] Monocyte Abs 0.5 0.3 - 0.9 x10(3)/mc L [facility] Eos % 4.1 % [facility] Eosinophils Abs 0.3 0.0 - 0.4 x10(3)/mc L [facility] Basophil % 0.8 % [facility] Baso Absolute 0.1 0.0 - 0.1 x10(3)/mc L [facility] Immature Gran % 0.30 % [facility] Comment: Immature granulocytes(IG's)percentage and absolute count will include metamyelocytes, myelocytes, and promyelocytes. Blood smears from CBCs yielding IG's will be scanned manually for concordance. If this scan disagrees with the automated IG or if promyelocytes are noted, a manual differential will be performed. Immature Gran Absolute 0.02 0.00 - 0.04 x10(3)/mc L [facility] Blood specimen (specimen) 03/14/2019 1:50 AM EDT 03/14/2019 2:04 AM EDT Narrative Resulting Agency Comment Spec In Lab Ed Simpson MD HEMATOLOGY ORDERABLE S [facility] [place] [address] * Hemogram (03/14/2019 1:50 AM EDT) White Blood Cell 8.0 4.0 - 9.5 x10(3)/[facility] Red Blood Cell 4.98 4.58 - 5.54 x10(6)/[facility] Hemoglobin 15.0 13.7 - 16.5 gm/dL [facility] Hematocrit 42.4 40.5 - 48.5 % [facility] Mean Cell Volume 85.1 82.9 - 93.1 fL [facility] Mean Cell Hemoglobin 30.1 27.5 - 32.1 pg [facility] Mean Cell Hemoglobin Concentration 35.4 32.0 - 35.7 gm/dL [facility] Platelet 192 145 - 357 x10(3)/[facility] RDW Standard Deviation 39.9 36.0 - 45.0 [facility] RDW coefficient of variation 12.9 11.4 - 13.8 % [facility] Mean Platelet Volume 11.7 7.6 - 12.9 fL [facility] NRBC% auto 0.0 % [facility] NRBC Absolute 0.000 0.000 - 0.000 x10(3)/mcL [facility] Blood specimen (specimen) 03/14/2019 1:50 AM EDT 03/14/2019 2:04 AM EDT Narrative Resulting Agency Comment Spec In Lab Ed Simpson MD HEMATOLOGY ORDERABLE S Performing Organization Address [facility] Co de Phone Number [facility] [place] [address] * pro-Brain Natriuretic Peptide (03/14/2019 1:50 AM EDT) NT-proBNP 12 <=125 pg/mL [facility] Blood specimen (specimen) 03/14/2019 1:50 AM EDT 03/14/2019 2:04 AM EDT Narrative Resulting Agency Comment Spec In Lab Ed Simpson MD CHEMISTRY ORDERABLES Performing Organization Address [facility] Co de Phone Number [facility] [place] [address] * Magnesium (03/14/2019 1:50 AM EDT) Magnesium 0.81 0.69 - 1.07 mmol/L [facility] Blood specimen (specimen) 03/14/2019 1:50 AM EDT 03/14/2019 2:04 AM EDT Narrative Resulting Agency Comment Spec In Lab Ed Simpson MD CHEMISTRY ORDERABLES Performing Organization Address [facility] Co de Phone Number [facility] [place] [address] * (ABNORMAL) BMP w/fasting Glucose (03/14/2019 1:50 AM EDT) Glucose Fasting 110(H) 65 - 99 mg/dL [facility] [...] of Diabetes Mellitus, Position Statement from the [place] [employer]. ??Diabetes Care, Volume 33, Supplement 1, Aug 2009 Blood Urea Nitrogen 10 10 - 20 mg/dL [facility] Creatinine 1.00 0.80 - 1.50 mg/dL [facility] Sodium Not Perf 135 - 145 [facility] Potassium Not Perf 3.5 - 5.0 [facility] Comment: Called by: [facility], Read back by: Keeley Arias, Date/Time:03/14/19 03:03. Please note: ??Patients with WBC >100,000 may have falsely elevated Potassium levels. ??For accurate Potassium quantification in these patients send serum separator tube (gold top) for subsequent determinations. ??Contact the Clinical Chemistry Laboratory if there are any questions. Chloride Not Perf 98 - 107 [facility] Carbon Dioxide 22 22 - 31 mmol/L [facility] Anion Gap Unable to Calculate 5 - 15 mmol/L [facility] Calcium 8.5 8.5 - 10.5 mg/dL [facility] Est Glomerular Filtration Rate 87 >=60 mL/min/1 .73 m?? [facility] Comment: The eGFR was calculated using the CKD-EPI equation. As with all creatinine based estimates of kidney function, eGFR values calculated with the CKD-EPI equation are not accurate in patients with acute kidney failure, extremes of body mass or the acutely ill. [email or web address]/DHMCnkf eGFR 101 >=60 mL/min/1 .73 m?? [facility] Comment: The eGFR was calculated using the CKD-EPI equation. As with all creatinine based estimates of kidney function, eGFR values calculated with the CKD-EPI equation are not accurate in patients with acute kidney failure, extremes of body mass or the acutely ill. [email or web address]/DHMCnkf Blood specimen (specimen) 03/14/2019 1:50 AM EDT 03/14/2019 2:04 AM EDT Narrative Resulting Agency Comment Spec In Lab Ed Simpson MD CHEMISTRY ORDERABLES Performing Organization Address [facility] Co de Phone Number [facility] [place] [address] * EKG 12 Lead (03/14/2019 1:06 AM EDT) Ventricular rate 63 BPM MUSE SYSTEM Atrial Rate 63 BPM MUSE SYSTEM P-R Interval 146 ms MUSE SYSTEM QRS Duration 84 ms MUSE SYSTEM Q-T Interval 384 ms MUSE SYSTEM QTC Calculated (Bezet) 392 ms MUSE SYSTEM Calculated P [place] 28 degrees MUSE SYSTEM Calculated R [place] 21 degrees MUSE SYSTEM Calculated T [place] 18 degrees MUSE SYSTEM INTERPRETATION Normal sinus rhythm Normal ECG When compared with ECG of 13-SEP-2017 07:49, No significant change was found Confirmed by MD NAZANIN, DEISY ([id number]) on 03/14/2019 9:49:11 AM MUSE SYSTEM 03/14/2019 1:06 AM EDT 03/14/2019 9:49 AM EDT Ed Simpson MD ECG ORDERABLES Performing Organization Address [facility] de Phone Number MUSE SYSTEM [...] - Reason: Transfer to a Procedural area)1133 ([facility] Unhold - Provider: Admin Adt)2099 (Given - Provider: Keeley Arias RN) 0855 (Given - Provider: Jacqueline Montes De Oca, VERO)2030 (Given - Provider: Beverly Chan, VERO) 0849 (Given - Provider: Heather Jenkins RN) clopidogrel (PLAVIX) tablet 75 mg (CANCELED) 75 mg, Oral, DAILY, First dose on Thu03/14/19 at 0900, Until Discontinued, Routine 0853 (Given - Provider: Mariela Nichols RN)1003 ([facility] Hold - Provider: Admin Adt - Reason: Transfer to a Procedural area)1133 ([facility] Unhold - Provider: Admin Adt) cyclobenzaprine (FLEXERIL) tablet 10 mg 10 mg, Oral, NIGHTLY, First dose on Thu03/14/19 at 2100, Until Discontinued, Routine 1003 ([facility] Hold - Provider: Admin Adt - [...] - Reason: Transfer to a Procedural area)1133 ([facility] Unhold - Provider: Admin Adt)2017 (Given - [...] Mariela Nichols RN) 0639 (Given - Provider: Keleey Arias RN)1118 (Given - Provider: Jacqueline Montes [...] Mariela Nichols RN) 0012 (Given - Provider: Keeley Arias RN)0643 [...] of tube = 37.5 grams., Routine 1003 ([facility] Hold - Provider: Admin Adt - Reason: Transfer to a Procedural area)1133 ([facility] Unhold - Provider: Admin Adt) iohexol (OMNIPAQUE) [...] for discomfort with PIV insertion, Routine 1003 ([facility] Hold - Provider: Admin Adt - Reason: Transfer to a Procedural area)1133 ([facility] Unhold - Provider: Admin Adt) midazolam (PF) [...] last 24 to 72 hours., Routine 1003 ([facility] Hold - Provider: Admin Adt - Reason: Transfer to a Procedural area)1133 ([facility] Unhold - Provider: Admin Adt) nitroGLYcerin [...] 0255 (Given - Provider: Keeley Arias, VERO)1003 ([facility] Hold - Provider: Admin Adt - Reason: Transfer to a Procedural area)1133 ([facility] Unhold - Provider: Admin Adt)1952 (Given - [...] provided on this medication record., Routine 1003 ([facility] Hold - Provider: Admin Adt - Reason: Transfer to a Procedural area)1133 ([facility] Unhold - Provider: Admin Adt) sodium chloride 0.9 % (flush) flush 5-20 mL 5-20 mL, Intravenous, EVERY 1 MIN PRN, Starting on Thu03/14/19 at 0219, Until Thu03/16/19 at 1756, flush, Flush pertains to all indwelling lines. Flush per protocol found in the job aid using the link provided on this medication record., Routine 1003 ([facility] Hold - Provider: Admin Adt - Reason: Transfer to a Procedural area)1133 ([facility] Unhold - Provider: Admin Adt) verapamil (ISOPTIN) [...] Routine documented in this encounter Care Teams Desk Operator Relationship Specialty Start Date End Date Coni Lim MD [address] [place] [address] PCP - General 07/16/10 documented as of this encounter
--- OUTSIDE RECORDS SUMMARY | 2024-04-30 18:20 | XMS_ITS | Encounter Summary ---
Author Organization [facility] Address [facility] [place] [address] Care Team Providers Care Paper Mill Manager Name Role Phone Coni Lim MD Primary Care Provider [phone] Encounter Details Date Type Department Care Team (Late st Contact Info) Description 03/13/2019 11:10 PM EDT Ancillary Procedure [place] [address] Wale Mckeon MD [facility] [address] [place] [id number] Social History Tobacco Use Types Packs/Day Years [...] DX Chest (03/13/2019 11:09 PM EDT) Narrative [facility] - 03/13/2019 11:09 PM EDT This exam is auto-finalizing. It's purpose is for storage only. Wale Mckeon MD IMG FILM LIBRARY ORD ERABLES [place], [place] documented in this encounter Visit Diagnoses Not on filedocumented in this encounter Care Teams Paper Mill Manager Relationship Specialty Start Date End Date Coni Lim MD [address] [place] [address] PCP - General 07/16/10 documented as of this encounter
--- OUTSIDE RECORDS SUMMARY | 2024-04-30 18:20 | XMS_ITS | Encounter Summary ---
Author Organization [facility] Address [facility] [place] [address] Care Team Providers Care Poultry Debeaker Name Role Phone Coni Lmi MD Primary Care Provider [phone] Encounter Details Date Type Department Care Team (Late st Contact Info) Description 03/13/2019 Telephone Cardiology at [address] [address] Syed Solorio MD [facility] [place] [address] Social History Tobacco Use Types Packs/Day Years [...] Initial Contact Date: 03/13/19 Initial contact time: [phone] Referring Provider: Heide Patient Location: [facility] Presenting Symptoms per OSH: Stable angina SOB [...] or examined this patient. Syed Solorio MD Hockey Instructor PGY4 P: [id number] documented in this encounter Plan of Treatment Not on file documented as of this encounter Visit Diagnoses Not on filedocumented in this encounter Care Teams Poultry Debeaker Relationship Specialty Start Date End Date Coni Lim MD [address] [place] [address] PCP - General 07/16/10 documented as of this encounter
--- OUTSIDE RECORDS SUMMARY | 2024-04-30 18:20 | XMS_ITS | Encounter Summary ---
[facility] [place] [address] Care Team Providers Care Retail Bakery Manager Name Role Phone Coni Lim MD Primary Care Provider [phone] Reason for Visit * Reason Comments Chest Pain * Auth/Cert Specialty Diagnoses / Procedures Referred By Contsigifredo t Referred To Contact Diagnoses Unstable angina chest pain Referral ID Status Reason Start Date Expiration Date Visits Re quested Visits Authorized [id number] 1 1 Encounter Details Date Type Department Care Team (Late st Contact Info) Description 09/12/2017 12:10 PM EST - 09/14/2017 11:12 AM EST Emergency Inter[place] [address] Buster Doherty, [facility] [address] [place]ER[place] [address] Christos Buchanan MD [facility] [address] [place] [address] Coronary artery disease, angina presence unspecified, unspecified vessel or lesion type, unspecified whether [place] or transplanted heart; Atherosclerosis of [place] coronary artery with unstable angina pectoris, unspecified whether [place] or transplanted heart Discharge Disposition: Home Social [...] Romeo Coe Patient Age: 52 y.o. Language: Icelandic Race: White Ethnicity: Not nor Admit date: [...] please contact your inpatient physician through the [facility] Provider Network Manager . Issues afterhours and on weekends will be handled by the clean room technician on-call. Discharge Diagnoses (Hospital Problems) and Secondary [...] restenosis addressed with LAD stent angioplasty at [facility] in January 2014 (ABSORB Stent) 75% RCA [...] patient to come to the hospital today. Origination Specialist is Dr. Vyas. ?? Currently, he watches [...] lightheadedness/presyncopal symptoms. He will follow-up with his railroad brake operator, Dr. Vyas, approximately 1 week as an [...] PF, Split 07/30/2013 ??? Influenza Vaccine (Novel) [id number], Injectable 05/24/2009 ??? Influenza Vaccine w/Preservative, Split [...] Discharge References/Attachments PCI (PERCUTANEOUS CORONARY INTERVENTION): POST-OP (BAHRAINI) documented in this encounter Discharge Instructions * [...] PCP [address] / [place] [address] 09/22/2017, 10:30 AM Florian Ling MD, Origination Specialist [place], [place] Your Inpatient Doctor(s) at [facility]: Christos Buchanan MD Daniel Storms, MD Sean Li, MD Jeffrey R Wunderlich, MD Your Primary Care Provider: Coni Lim MD [address] / [place] [address] For questions regarding this document or issues relating to this hospitalization on the Medical Service, please contact your inpatient physician through the [facility] Provider Network Manager . Issues afterhours and on weekends will be handled by the Hospitalist staff on-call. * Attachments The following attachments cannot be sent through Care Everywhere. 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 Original notice to be scanned [...] 09/12/2017 5:31 PM EST [facility] from ED s/p chest [...] Buchanan MD PCP: Coni Lim MD PCP#: [phone] CC: Chest Pain Patient Active Problem List [...] restenosis addressed with LAD stent angioplasty at [facility] in January 2014 (ABSORB Stent) 75% RCA [...] patient to come to the hospital today. Origination Specialist is Dr. Vyas. Currently, he watches his [...] of Onset ??? Myocardial Infarction Father [address], CABG ??? Diabetes Mother ??? Hypertension Mother [...] son (age 18 months), daughter 11 in [place], [place]. Takes care of his mother who has dementia and he takes her to dialysis. is disabled. Has grown daughter who is 29 years old. 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 Physical Exam: Vitals: Most Recent Vitals: 09/12/17 [...] restenosis addressed with LAD stent angioplasty at [facility] in January 2014 (ABSORB Stent) 75% RCA [...] two days ago. Patient has contacted his railroad brake operator who advised to presentto the ED. He [...] reviewed the EKG: Sinus Rhythm, rate 82 [place], QRS and QTc within normal limits No [...] Emergency Medicine *This note was dictated with [employer] software. Molly Mayer MD Resident 09/12/17 [id number] Associated attestation - Buster Doherty DO - [...] Within the Past 30 Days: None at [facility], nor at outside hospitals, per pt's report. Anticipated Length Of Stay : Tentative discharge late this afternoon or tomorrow, pending cardiac cath results. Pt admitted under Observation Status; order completed by Dr. Drew ePpe on 11/22/16 @ 0008. 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 I've been disabled for five years due to Fibromyalgia and Arthritis. Home Environment: Lives with his , Dasia in [place], [place]. Social & Family Supports/Community Resources: , Friends, neighbors Dasia Coe (Spouse) [address] [place] [phone] (H) [phone] (M) Behavioral Health History: Per pt report, has Anxiety and Depression, (on Cymbalta and Wellbutrin). Substance Use/Abuse: Current every day smoker; 1-5 cigarettes a day. EtOH: None. Illicit Drug Use: Marijuana every day, medical use. Other Pertinent/Service Specific Information: None Health/Prescription Coverage: Primary Insurance: MEDICARE PART A & B Secondary Insurance: MEDICAID [place] Prescription Coverage: Yes, has Silver Script. Preferred Pharmacy: [phone] - [facility], [place] - [address] [facility] [address] ? Not a 24 hour pharmacy; exact hours not known Other: None Primary Care Provider: Coni Lim MD [phone] Patient/Caregiver Goals of Treatment: To return home and to his normal activities. Potential Needs for Transition of Care: Rehab/SNF: Pt has never been a pt in a rehab setting. Home Health: [facility] in the past (after right [...] transition of care planning. TIMBO Barrett Pager: [phone] * Plan of Care - Keisha Mae [...] tele. Cont to monitor. PLAN MOVING FORWARD: orthodontic lab technician echo INDIVIDUALIZED FALL PREVENTION INTERVENTIONS: Patient-specific [...] 1 month of chest pressure, told by railroad brake operator that if he decided to be seen [...] METABOLIC PANEL Routine 09/14/2017 3:40 AM EST AUTOMOTIVE SERVICE PORTER SCAN 09/14/2017 12:00 AM EST POCT GLUCOSE Routine 09/13/2017 7:50 PM EST POCT GLUCOSE Routine 09/13/2017 4:58 PM EST ECHO LMTD W/O CONTRAST W LMTD SPEC DOPP COLOR DOPP Routine 09/13/2017 2:44 PM EST Coronary artery disease, angina presence unspecified, unspecified vessel or lesion type, unspecified whether [place] or transplanted heart POCT GLUCOSE Routine 09/13/2017 11:32 AM EST CARDIAC CATHETERIZATION Routine 09/13/19 11:09 AM EST EKG 12-LEAD STAT 09/13/2017 7:49 AM EST Coronary artery disease, angina presence unspecified, unspecified vessel or lesion type, unspecified whether [place] or transplanted heart POCT GLUCOSE Routine 09/13/2017 [...] Routine 09/13/2017 6:32 AM EST CARDIAC ENZYMES ([facility]/CGP) STAT 09/13/2017 12:13 AM EST APTT STAT 09/13/2017 12:13 AM EST CARDIAC CATH SCAN 09/13/2017 12: 00 AM EST POCT GLUCOSE Routine 09/12/2017 9:14 PM EST CARDIAC ENZYMES ([facility]/CGP) STAT 09/12/2017 6:53 PM EST XR CHEST PA AND LATERAL STAT 09/12/19 2:02 PM EST HEMOGRAM STAT 09/12/2017 1:29 PM EST DIFFERENTIAL, AUTOMATED STAT 09/12/19 1:29 PM EST GOLD TUBE HOLD STAT 09/12/2017 1:29 PM EST BLUE TUBE HOLD STAT 09/12/2017 1:29 PM EST CARDIAC ENZYMES ([facility]P) STAT 09/12/2017 1:29 PM EST APTT STAT [...] Glucose, POC 158 65 - 199 mg/dL [facility] Comment: Supplemental ranges: <140 mg/dL before meals <180 mg/dL all other times of the day Blood specimen (specimen) 09/14/2017 7:32 AM EST 09/14/2017 7:32 AM EST Christos Buchanan MD POINT OF CARE [place] [address] * Differential, Automated (09/14/2017 3:40 AM EST) Neutrophil % 51.2 % [facility] Neutrophil Absolute 4.61 1.70 - 6.10 x10(3)/[facility] Lymph % 34.3 % [facility] Lymphocytes Abs 3.1 0.9 - 3.2 x10(3)/[facility] Monocyte % 8.6 % [facility] Monocyte Abs 0.8 0.3 - 0.9 x10(3)/[facility] Eos % 4.6 % [facility] Eosinophils Abs 0.4 0.0 - 0.4 x10(3)/[facility] Basophil % 0.9 % [facility] Baso Absolute 0.1 0.0 - 0.1 x10(3)/[facility] Immature Gran % 0.40 % [facility] Comment: Immature granulocytes(IG's)percentage and absolute count will include metamyelocytes, myelocytes, and promyelocytes. Blood smears from CBCs yielding IG's will be scanned manually for concordance. If this scan disagrees with the automated IG or if promyelocytes are noted, a manual differential will be performed. Immature Gran Absolute 0.04 0.00 - 0.04 x10(3)/[facility] Blood specimen (specimen) 09/14/2017 3:40 AM EST 09/14/2017 4:08 AM EST Narrative Resulting Agency Comment Spec In Lab Christos Buchanan MD [place] [address] * Hemogram (09/14/2017 3:40 AM EST) White Blood Cell 9.0 4.0 - 9.5 x10(3)/[facility] Red Blood Cell 5.28 4.58 - 5.54 x10(6)/[facility] Hemoglobin 15.0 13.7 - 16.5 gm/dL [facility] Hematocrit 45.8 40.5 - 48.5 % [facility] Mean Cell Volume 86.7 82.9 - 93.1 fL [facility] Mean Cell Hemoglobin 28.4 27.5 - 32.1 pg [facility] Mean Cell Hemoglobin Concentration 32.8 32.0 - 35.7 gm/dL [facility] Platelet 188 145 - 357 x10(3)/[facility] RDW Standard Deviation 43.6 36.0 - 45.0 [facility]ORY RDW coefficient of variation 13.7 11.4 - 13.8 % [facility] Mean Platelet Volume 10.4 7.6 - 12.9 fL [facility] NRBC% auto 0.0 % [facility] NRBC Absolute 0.000 0.000 - 0.000 x10(3)/[facility] Blood specimen (specimen) 09/14/2017 3:40 AM EST 09/14/2017 4:08 AM EST Narrative Resulting Agency Comment Spec In Lab Christos Buchanan MD HEMATOLOGY ORDERABLE S [facility] [place] [address] * Prothrombin Time (09/14/2017 3:40 AM EST) Prothrombin Time 13.3 11.8 - 14.0 sec [facility] International Normalization Ratio 1.0 0.9 - 1.1 [facility] Comment: An INR <2.0 indicates [...] MD HEMATOLOGY ORDERABLE S Performing Organization Address [facility] Co de Phone Number [facility] [place] [address] * Magnesium (09/14/2017 3:40 AM EST) Magnesium 0.83 0.69 - 1.07 mmol/L [facility] Blood specimen (specimen) 09/14/2017 3:40 AM EST 09/14/2017 4:08 AM EST Narrative Resulting Agency Comment Spec In Lab Christos Buchanan MD CHEMISTRY ORDERABLES Performing Organization Address [facility] Co de Phone Number [facility] [place] [address] * Basic Metabolic Panel (non-fasting) (09/14/2017 3:40 AM EST) Glucose 108 65 - 199 mg/dL [facility] Comment:Diabetes: >=200 mg/d L plus symptoms Blood Urea Nitrogen 11 10 - 20 mg/dL [facility] Creatinine 1.05 0.80 - 1.50 mg/dL [facility] Sodium 143 135 - 145 mmol/L [facility] Potassium 4.0 3.5 - 5.0 mmol/L [facility] Comment: Please note: ??Patients with WBC >100,000 may have falsely elevated Potassium levels. ??For accurate Potassium quantification in these patients send serum separator tube (gold top) for subsequent determinations. ??Contact the Clinical Chemistry Laboratory if there are any questions. Chloride 106 98 - 107 mmol/L [facility] Carbon Dioxide 22 22 - 31 mmol/L [facility] Anion Gap 15 5 - 15 mmol/L [facility] Calcium 9.2 8.5 - 10.5 mg/dL [facility] Est Glomerular Filtration Rate >60 >=60 [facility] Comment: The reported eGFR should be multiplied by 1.2 for patients. The MDRD is not an appropriate measure of renal function for patients with body mass extremes or in patients with acute kidney failure. http://ConnectFu/DHnkdep http://ConnectFu/DHMCnkf Blood specimen (specimen) 09/14/2017 3:40 AM EST 09/14/2017 4:08 AM EST Narrative Resulting Agency Comment Spec In Lab Christos Buchanan MD CHEMISTRY ORDERABLES Performing Organization Address [facility] Co de Phone Number [facility] [place] [address] * SCAN DOC: AUTOMOTIVE SERVICE PORTER (09/14/2017 12:00 AM EST) Anatomical Region Laterality Modality Other Narrative 09/14/2017 12:00 AM EST Ordered by an unspecified provider. Scanning Provider MEDIA MGR SCAN EXT O RDR/RSLT * POCT Glucose (09/13/2017 7:50 PM EST) Glucose, POC 113 65 - 199 mg/dL [facility] Comment: Supplemental ranges: <140 mg/dL before meals <180 mg/dL all other times of the day Blood specimen (specimen) 09/13/2017 7:50 PM EST 09/13/2017 7:50 PM EST Christos Buchanan MD POINT OF CARE TEST O RDERABLES Performing Organization Address [facility]/ZIP Co de Phone Number [facility] [place] [address] * POCT Glucose (09/13/2017 4:58 PM EST) Glucose, POC 138 65 - 199 mg/dL [facility] Comment: Supplemental ranges: <140 mg/dL before meals <180 mg/dL all other times of the day Blood specimen (specimen) 09/13/2017 4:58 PM EST 09/13/2017 4:58 PM EST Christos Buchanan MD POINT OF CARE TEST O RDERABLES Performing Organization Address [facility]/State/ZIP Co de Phone Number [facility] [place] [address] * ECHO LMTD W/O CONTRAST W LMTD SPEC DOPP COLOR DOPP (09/13/2017 2:44 PM EST) EF 65 HEART[facility] SYSTEM Anatomical Region Laterality Modality Other 09/13/2017 Narrative 09/13/2017 3:16 PM EST Procedure: ?Transthoracic Echocardiogram Patient: ?LAQUITA Pop ? (Age): 1965(52y) Med Rec#: ? [id number] ?Sex: ?M ? Site Loc: ? [facility] ?Ht / Wt: ??180.3(cm)/101.6 Pt. Loc: ?Adult Floor ? BSA: ?2.21 Study Date: ?? 09/13/2017 ?Pt. Type: Outpatient Tape: ? Referring: Christos Buchanan ([id number]) Reading: Christos Buchanan ([id number]) Emergency Medical Technician: Meaghan Kim Diagnosis: *ICD-10-PCS Atherosclerotic heart disease of [place] coronary artery without angina pectoris (I25.10) BP: [...] E-wave Vmax ?0.6 ?m/sec ? MV deceleration [id number] ?msec ? MV A-wave Vmax ?0.5 ?m/sec [...] ? Mid-Inferior ?Normal ? Mid-Inferoseptal ?Normal ? [place]-Septal ? Normal ? [place]-Anterior ? Normal ? [place]-Lateral ?Normal ? [place]-Inferior ? Normal ? [place]-Tip ?Normal ? This report has been electronically signed by: Christos Buchanan M.D. ? 09/13/2017 15:16:25 Images reviewed and interpretation verified [facility] Cardiac Ultrasound Laboratory Procedure Note Christos Buchanan MD - 09/13/2017 Procedure: Transthoracic Echocardiogram Patient: LAQUITA Pop DOB(Age): 1965(52y) Med Rec#: [id number] Sex: M Site Loc: [facility] Ht / Wt: 180.3(cm)/101.6 Pt. Loc: Adult Floor BSA: 2.21 Study Date: 09/13/2017 Pt. Type: Outpatient Tape: Referring: Christos Buchanan ([id number]) Reading: Christos Buchanan ([id number]) Emergency Medical Technician: Meaghan Kim Diagnosis: *ICD-10-PCS Atherosclerotic heart disease of [place] coronary artery without angina pectoris (I25.10) BP: [...] MV E-wave Vmax 0.6 m/sec MV deceleration [id number] msec MV A-wave Vmax 0.5 m/sec MV [...] Normal Mid-Posterolateral Normal Mid-Inferior Normal Mid-Inferoseptal Normal [place]-Septal Normal [place]-Anterior Normal [place]-Lateral Normal [place]-Inferior Normal [place]-Tip Normal This report has been electronically signed by: Christos Buchanan M.D. 09/13/2017 15:16:25 Images reviewed and interpretation verified [facility] Cardiac Ultrasound Laboratory Christos Buchanan MD ECHO ORDERABLES * POCT Glucose (09/13/2017 11:32 AM EST) Glucose, POC 104 65 - 199 mg/dL [facility] Comment: Supplemental ranges: <140 mg/dL before meals <180 mg/dL all other times of the day Blood specimen (specimen) 09/13/2017 11:32 AM EST 09/13/2017 11:32 AM EST Christos Buchanan MD POINT OF CARE TEST O RDERABLES Performing Organization Address City/State/[facility] Co de Phone Number [facility] [place] [address] * CARDIAC CATHETERIZATION (09/13/2017 11:09 AM EST) Anatomical Region Laterality Modality Other Narrative 09/13/2017 11:33 AM EST ?[facility] ? Cardiac Catheterization/Intervention Report ? Patient Name: Laquita, Romeo A. ? Procedure Date: 09/13/2017 ? A #: [id number] ? Primary Physician: Agusto Ball W ? Case #: [id number] ? File Name: [id number] ? Catheterization Order Number: [id number] ? [facility] ? Final Report [place], [place] ? Patient Name: ? Romeo A. Coe ? ID#: ?[id number] ? : ?1965 ? Procedure Date: ? [...] presented with: unstable angina (w/i 60 days). [place] ?Cardiovascular Society angina class was IV. This [...] Agusto Ball II, MD - 09/14/2017 [facility] Cardiac Catheterization/Intervention Report Patient Name: Romeo Coe Procedure Date: 09/13/2017 A #: [id number] Primary Physician: Agusto Ball Case #: [id number] File Name: [id number] Catheterization Order Number: [id number] [facility] FinalReport [place], [place] Patient Name: Romeo Coe ID#:[id number] :1965 Procedure Date: September 13, 2017 Case [...] presented with: unstable angina (w/i 60 days). [place] Cardiovascular Society angina class was IV. This [...] (Bezet) 416 ms MUSE SYSTEM Calculated P [place] 5 degrees MUSE SYSTEM Calculated R [place] 23 degrees MUSE SYSTEM Calculated T [place] 28 degrees MUSE SYSTEM INTERPRETATION Normal sinus rhythm Normal ECG When compared with ECG of 12-SEP-2017 12:19, No significant change was found Confirmed by MD Segundo, Panda Leyva ([id number]) on 09/14/2017 9:09:15 AM MUSE SYSTEM 09/13/2017 7:49 AM EST 09/14/2017 9:09 AM EST Christos Buchanan MD ECG ORDERABLES MUSE SYSTEM * POCT Glucose (09/13/2017 7:24 AM EST) Glucose, POC 152 65 - 199 mg/dL [facility] Comment: Supplemental ranges: <140 mg/dL before meals <180 mg/dL all other times of the day Blood specimen (specimen) 09/13/2017 7:24 AM EST 09/13/2017 7:24 AM EST Christos Buchanan MD POINT OF CARE TEST O RDERABLES Performing Organization Address [facility]/ZIP Co de Phone Number [facility] [place] [address] * (ABNORMAL) BMP w/fasting Glucose (09/13/2017 6:32 AM EST) Glucose Fasting 157(H) 65 - 99 mg/dL [facility] Comment: ?Fasting* Glucose Interpretive Criteria [...] of Diabetes Mellitus, Position Statement from the [place] [employer]. ??Diabetes Care, Volume 33, Supplement 1, Aug 2009 Blood Urea Nitrogen 11 10 - 20 mg/dL [facility] Creatinine 0.99 0.80 - 1.50 mg/dL [facility] Sodium 142 135 - 145 mmol/L [facility] Potassium 3.7 3.5 - 5.0 mmol/L [facility] Comment: Please note: ??Patients with WBC >100,000 may have falsely elevated Potassium levels. ??For accurate Potassium quantification in these patients send serum separator tube (gold top) for subsequent determinations. ??Contact the Clinical Chemistry Laboratory if there are any questions. Chloride 106 98 - 107 mmol/L [facility] Carbon Dioxide 21(L) 22 - 31 mmol/L [facility] Anion Gap 15 5 - 15 mmol/L [facility] Calcium 9.4 8.5 - 10.5 mg/dL [facility] Est Glomerular Filtration Rate >60 >=60 [facility] Comment: The reported eGFR should be multiplied by 1.2 for patients. The MDRD is not an appropriate measure of renal function for patients with body mass extremes or in patients with acute kidney failure. http://ConnectFu/DHnkdep http://ConnectFu/[facility]ATIONnkf Blood specimen (specimen) 09/13/2017 6:32 AM EST 09/13/2017 6:41 AM EST Narrative Resulting Agency Comment Spec In Lab Christos Buchanan MD CHEMISTRY ORDERABLES Performing Organization Address [facility] Co de Phone Number [facility] [place] [address] * (ABNORMAL) APTT (09/13/2017 6:32 AM EST) [facility] Partial Thromboplastin Time 113(H) 25 - 35 sec [facility] Comment: The recommended therapeutic range for full dose, unfractionated heparin at [facility] is 80 ? 114 seconds. The use of the anti-Xa (heparin) level rather than the PTT is recommended for monitoring anticoagulation intensity in critically ill patients receiving unfractionated heparin by continuous IV infusion. Blood specimen (specimen) 09/13/2017 6:32 AM EST 09/13/2017 6:41 AM EST Narrative Resulting Agency Comment Spec In Lab Christos Buchanan MD HEMATOLOGY ORDERABLE S Performing Organization Address City/[facility]/ZIP Co de Phone Number [facility] [place] [address] * Differential, Automated (09/13/2017 6:32 AM EST) Neutrophil % 64.9 % [facility] Neutrophil Absolute 5.94 1.70 - 6.10 x10(3)/[facility] Lymph % 24.7 % [facility] Lymphocytes Abs 2.3 0.9 - 3.2 x10(3)/[facility] Monocyte % 5.3 % [facility] Monocyte Abs 0.5 0.3 - 0.9 x10(3)/[facility] Eos % 4.0 % [facility] Eosinophils Abs 0.4 0.0 - 0.4 x10(3)/[facility] Basophil % 0.7 % [facility] Baso Absolute 0.1 0.0 - 0.1 x10(3)/[facility] Immature Gran % 0.40 % [facility] Comment: Immature granulocytes(IG's)percentage and absolute count will include metamyelocytes, myelocytes, and promyelocytes. Blood smears from CBCs yielding IG's will be scanned manually for concordance. If this scan disagrees with the automated IG or if promyelocytes are noted, a manual differential will be performed. Immature Gran Absolute 0.04 0.00 - 0.04 x10(3)/[facility] Blood specimen (specimen) 09/13/2017 6:32 AM EST 09/13/2017 6:41 AM EST Narrative Resulting Agency Comment Spec In Lab Christos Buchanan MD HEMATOLOGY ORDERABLE S [facility] [place] [address] * Hemogram (09/13/2017 6:32 AM EST) White Blood Cell 9.2 4.0 - 9.5 x10(3)/[facility] Red Blood Cell 5.29 4.58 - 5.54 x10(6)/[facility] Hemoglobin 15.4 13.7 - 16.5 gm/dL [facility] Hematocrit 44.9 40.5 - 48.5 % [facility] Mean Cell Volume 84.9 82.9 - 93.1 fL [facility] Mean Cell Hemoglobin 29.1 27.5 - 32.1 pg [facility] Mean Cell Hemoglobin Concentration 34.3 32.0 - 35.7 gm/dL [facility] Platelet 186 145 - 357 x10(3)/[facility] RDW Standard Deviation 42.9 36.0 - 45.0 fL [facility] RDW coefficient of variation 13.8 11.4 - 13.8 % [facility] Mean Platelet Volume 10.3 7.6 - 12.9 fL [facility] NRBC% auto 0.0 % [facility] NRBC Absolute 0.000 0.000 - 0.000 x10(3)/[facility] Blood specimen (specimen) 09/13/2017 6:32 AM EST 09/13/2017 6:41 AM EST Narrative Resulting Agency Comment Spec In Lab Christos Buchanan MD HEMATOLOGY ORDERABLE S Performing Organization Address [facility] Co de Phone Number [facility] [place] [address] * Blood culture (09/13/2017 6:32 AM EST) Blood Culture No growth at 5 days. [facility] Blood specimen (specimen) 09/13/2017 6:32 AM EST 09/13/2017 7:17 AM EST Comment:L FOREARM Narrative Resulting Agency Comment Spec In Lab Christos Buchanan MD MICROBIOLOGY - BLOOD ORDERABLES Performing Organization Address [facility] Co de Phone Number [facility] [place] [address] * Prothrombin Time (09/13/2017 6:32 AM EST) Prothrombin Time 13.8 11.8 - 14.0 sec [facility] International Normalization Ratio 1.1 0.9 - 1.1 [facility] Comment: An INR <2.0 indicates [...] MD HEMATOLOGY ORDERABLE S Performing Organization Address [facility] Co de Phone Number [facility] [place] [address] * Magnesium (09/13/2017 6:32 AM EST) Magnesium 0.84 0.69 - 1.07 mmol/L [facility] Blood specimen (specimen) 09/13/2017 6:32 AM EST 09/13/2017 6:41 AM EST Narrative Resulting Agency Comment Spec In Lab Christos Buchanan MD CHEMISTRY ORDERABLES Performing Organization Address [facility] Co de Phone Number [facility] [place] [address] * Triglyceride (09/13/2017 6:32 AM EST) Triglyceride 153 <=199 mg/dL [facility] Blood specimen (specimen) 09/13/2017 6:32 AM EST 09/13/2017 6:41 AM EST Narrative Resulting Agency Comment Spec In Lab Christos Buchanan MD CHEMISTRY ORDERABLES Performing Organization Address [facility] Co de Phone Number [facility] [place] [address] * HDL/Cholesterol Profile (09/13/2017 6:32 AM EST) Cholesterol, Total 162 <=239 mg/dL [facility] HDL Cholesterol 44 >=40 mg/dL [facility] Cholesterol/HDL Ratio 3.7 ratio [facility] Chol/HDL Interpretation See Note [facility] Comment: Lipid management should be guided by a patient? s ASCVD risk, goals and preferences. ACC/AHA Guidelines recommend high intensity statin if clinical ASCVD or LDL greater than or equal to 190 mg/dL. http://[employer].com/NIG-AWJ-Plmcqfmxj Measure LDL if Total Cholesterol minus HDL Cholesterol is greater than 220 mg/dL. Adults aged 40-75 with LDL 70-189 mg/dL should have their 10 year ASCVD risk estimated with the ACC/AHA ASCVD risk commercial construction estimator http://tools.acc.org/HNEXU-Ocuh-Sgcqydlaa/ Statin should be discussed if risk greater [...] Buchanan MD CHEMISTRY ORDERABLES Performing Organization Address City/State/[facility] Co de Phone Number [facility] [place] [address] * LDL Cholesterol, Direct (09/13/2017 6:32 AM EST) LDL Cholesterol, Direct 102 <=190 mg/dL [facility] Blood specimen (specimen) 09/13/2017 6:32 AM EST 09/13/2017 6:41 AM EST Narrative Resulting Agency Comment Spec In Lab Christos Buchanan MD CHEMISTRY ORDERABLES [facility] [place] [address] * (ABNORMAL) Hemoglobin A1c (09/13/2017 6:32 AM EST) Hemoglobin A1c 6.4(H) 4.3 - 5.6 % [facility] Comment: Reference Range: 4.3 - [...] Mellitus, Diabetes Care 2013; 36: Suppl. 1, F27-63 Estimated Average Glucose 137 mg/dL [facility] Comment: eAG equivalents for HbA1c [...] into estimated average glucose values. ??Diabetes Care 2008:31(8):9294-0907. Blood specimen (specimen) 09/13/2017 6:32 AM EST 09/13/2017 6:41 AM EST Narrative Resulting Agency Comment Spec In Lab Christos Buchanan MD CHEMISTRY ORDERABLES Performing Organization Address [facility] Co de Phone Number [facility] [place] [address] * pro-Brain Natriuretic Peptide (09/13/2017 6:32 AM EST) NT-proBNP 15 <=125 pg/mL [facility] Blood specimen (specimen) 09/13/2017 6:32 AM EST 09/13/2017 6:41 AM EST Narrative Resulting Agency Comment Spec In Lab Christos Buchanan MD CHEMISTRY ORDERABLES Performing Organization Address [facility] Phone Number [facility] [place] [address] * (ABNORMAL) APTT (09/13/2017 12:13 AM EST) Partial Thromboplastin Time 50(H) 25 - 35 sec [facility] Comment: The recommended therapeutic range for full dose, unfractionated heparin at [facility] is 80 ? 114 seconds. The use of the anti-Xa (heparin) level rather than the PTT is recommended for monitoring anticoagulation intensity in critically ill patients receiving unfractionated heparin by continuous IV infusion. Blood specimen (specimen) 09/13/2017 12:13 AM EST 09/13/2017 12:42 AM EST Narrative Resulting Agency Comment Spec In Lab Christos Buchanan MD HEMATOLOGY ORDERABLE S Performing Organization Address [facility] Co de Phone Number [facility] [place] [address] * Cardiac Enzymes (LEB/CGP) (09/13/2017 12:13 AM EST) Troponin-T <0.01 0.00 - 0.00 ng/mL [facility] Comment: The 99th percentile for Troponin T is less than 0.01 ng/mL, any detectable cTnT concentration using this assay should be considered elevated. According to the third universal definition of myocardial infarction the following criteria with a clinical presentation consistent with acute myocardial ischemia meets the diagnosis for a myocardial infarction (NE). Detection of a rise and/or fall of cTnT, with at least one value greater than the 99th percentile (> or = 0.01) and with at least one of the following ?? Symptoms of ischemia ?? New or presumed new significant CE-cdinfiu-N wave (ST-T) changes or new left bundle [...] additional sample may be indicated. Reference: Third [place] Definition of Myocardial Infarction. Journal of the [place] College of Cardiology 2012;60:1581-98 Creatine Kinase 55 0 - 200 unit/L [facility] Blood specimen (specimen) 09/13/2017 12:13 AM EST 09/13/2017 12:42 AM EST Narrative Resulting Agency Comment Spec In Lab Christos Buchanan MD CHEMISTRY ORDERABLES [facility] [place] [id number] * SCAN DOC: CARDIAC CATH (09/13/2017 12:00 AM EST) Anatomical Region Laterality Modality Cardiac Other Narrative 09/13/2017 12:00 AM EST Ordered by an unspecified provider. Scanning Provider MEDIA MGR SCAN EXT O RDR/RSLT * POCT Glucose (09/12/2017 9:14 PM EST) Glucose, POC 102 65 - 199 mg/dL [facility] Comment: Supplemental ranges: <140 mg/dL before meals <180 mg/dL all other times of the day Blood specimen (specimen) 09/12/2017 9:14 PM EST 09/12/2017 9:14 PM EST Christos Buchanan MD POINT OF CARE TEST O RDERABLES Performing Organization Address [facility]/ZIP Co de Phone Number [facility] [place] [address] * Cardiac Enzymes (LEB/CGP) (09/12/2017 6:53 PM EST) Troponin-T <0.01 0.00 - 0.00 ng/mL [facility] Comment: The 99th percentile for Troponin T is less than 0.01 ng/mL, any detectable cTnT concentration using this assay should be considered elevated. According to the third universal definition of myocardial infarction the following criteria with a clinical presentation consistent with acute myocardial ischemia meets the diagnosis for a myocardial infarction (NE). Detection of a rise and/or fall of cTnT, with at least one value greater than the 99th percentile (> or = 0.01) and with at least one of the following ?? Symptoms of ischemia ?? New or presumed new significant FR-krpevtv-S wave (ST-T) changes or new left bundle [...] additional sample may be indicated. Reference: Third [place] Definition of Myocardial Infarction. Journal of the [place] College of Cardiology 2012;60:1581-98 Creatine Kinase 57 0 - 200 unit/L [facility] Blood specimen (specimen) 09/12/2017 6:53 PM EST 09/12/2017 7:02 PM EST Narrative Resulting Agency Comment Spec In Lab Christos Buchanan MD CHEMISTRY ORDERABLES Performing Organization Address [facility]/ZIP Co de Phone Number [facility] [place] [address] * XR Chest PA & Lateral (Generic) [...] abdomen. IMPRESSION No acute cardiopulmonary disease. Buster Nahomi Bessy [facility] DX ORDERABLES * Prothrombin Time (09/12/2017 1:29 PM EST) Prothrombin Time 13.7 11.8 - 14.0 sec [facility] International Normalization Ratio 1.1 0.9 - 1.1 [facility] Comment: An INR <2.0 indicates [...] MD HEMATOLOGY ORDERAB LES Performing Organization Address [facility] Co de Phone Number [facility] [place] [address] * APTT (09/12/2017 1:29 PM EST) Partial Thromboplastin Time 28 25 - 35 sec [facility] Comment: The recommended therapeutic range for full dose, unfractionated heparin at [facility] is 80 ? 114 seconds. The use [...] MD HEMATOLOGY ORDERAB LES Performing Organization Address [facility] Co de Phone Number [facility] [place] [address] * pro-Brain Natriuretic Peptide (09/12/2017 1:29 PM EST) Pathologist [facility] NT-proBNP 20 <=125 pg/mL [facility] Blood specimen (specimen) Venous Draw / Unknown 09/12/2017 1:29 PM EST 09/12/2017 1:35 PM EST Narrative Resulting Agency Comment Spec In Lab Alejandro Blair MD CHEMISTRY ORDERABL ES Performing Organization Address [facility] Co de Phone Number [facility] [place] [address] * Gold Tube HOLD (09/12/2017 1:29 PM EST) Gold Hold Sample in lab. [facility] Blood specimen (specimen) Venous Draw / Unknown 09/12/2017 1:29 PM EST 09/12/2017 1:34 PM EST Alejandro Blair MD CHEMISTRY ORDERABL ES Performing Organization Address City/[facility]/ZIP [place] [address] * Blue Tube HOLD (09/12/2017 1:29 PM EST) Pathologist [facility] Blue Hold Sample in lab. [facility] Blood specimen (specimen) Venous Draw / Unknown 09/12/2017 1:29 PM EST 09/12/2017 1:34 PM EST Alejandro Blair MD HEMATOLOGY ORDERAB LES Performing Organization Address [facility] [place] [address] * Differential, Automated (09/12/2017 1:29 PM EST) Pathologist [facility] Neutrophil % 57.0 % [facility] Neutrophil Absolute 5.07 1.70 - 6.10 x10(3)/[facility] Lymph % 29.7 % [facility] Lymphocytes Abs 2.6 0.9 - 3.2 x10(3)/[facility] Monocyte % 7.8 % [facility] Monocyte Abs 0.7 0.3 - 0.9 x10(3)/[facility] Eos % 4.2 % [facility] Eosinophils Abs 0.4 0.0 - 0.4 x10(3)/[facility] Basophil % 0.8 % [facility] Baso Absolute 0.1 0.0 - 0.1 x10(3)/[facility] Immature Gran % 0.50 % [facility] Comment: Immature granulocytes(IG's)percentage and absolute count will include metamyelocytes, myelocytes, and promyelocytes. Blood smears from CBCs yielding IG's will be scanned manually for concordance. If this scan disagrees with the automated IG or if promyelocytes are noted, a manual differential will be performed. Immature Gran Absolute 0.04 0.00 - 0.04 x10(3)/[facility] Blood specimen (specimen) 09/12/2017 1:29 PM EST 09/12/2017 1:34 PM EST Narrative Resulting Agency Comment Spec In Lab Alejandro Blair MD HEMATOLOGY ORDERAB LES Performing Organization Address City/[facility] Co de Phone Number [facility] [place] [address] * Hemogram (09/12/2017 1:29 PM EST) White Blood Cell 8.9 4.0 - 9.5 x10(3)/[facility] Red Blood Cell 5.07 4.58 - 5.54 x10(6)/[facility] Hemoglobin 14.8 13.7 - 16.5 gm/dL [facility] Hematocrit 43.3 40.5 - 48.5 % [facility] Mean Cell Volume 85.4 82.9 - 93.1 [facility] Mean Cell Hemoglobin 29.2 27.5 - 32.1 pg [facility] Mean Cell Hemoglobin Concentration 34.2 32.0 - 35.7 gm/dL [facility] Platelet 208 145 - 357 x10(3)/[facility] RDW Standard Deviation 42.5 36.0 - 45.0 [facility] RDW coefficient of variation 13.7 11.4 - 13.8 % [facility] Mean Platelet Volume 10.4 7.6 - 12.9 [facility] NRBC% auto 0.0 % [facility] NRBC Absolute 0.000 0.000 - 0.000 x10(3)/[facility] Blood specimen (specimen) 09/12/2017 1:29 PM EST 09/12/2017 1:34 PM EST Narrative Resulting Agency Comment Spec In Lab Alejandro Blair MD HEMATOLOGY ORDERAB LES Performing Organization Address City/[facility]/ZIP Co de Phone Number [facility] [place] [address] * (ABNORMAL) Basic Metabolic Panel (non-fasting) (09/12/2017 1:29 PM EST) Glucose 113 65 - 199 mg/dL [facility] Comment:Diabetes: >=200 mg/d L plus symptoms Blood Urea Nitrogen 10 10 - 20 mg/dL [facility] Creatinine 0.96 0.80 - 1.50 mg/dL [facility] Sodium 143 135 - 145 mmol/L [facility] Potassium 3.9 3.5 - 5.0 mmol/L [facility] Comment: Please note: ??Patients with WBC >100,000 may have falsely elevated Potassium levels. ??For accurate Potassium quantification in these patients send serum separator tube (gold top) for subsequent determinations. ??Contact the Clinical Chemistry Laboratory if there are any questions. Chloride 106 98 - 107 mmol/L [facility] Carbon Dioxide 20(L) 22 - 31 mmol/L [facility] Anion Gap 17(H) 5 - 15 mmol/L [facility] Calcium 9.2 8.5 - 10.5 mg/dL [facility] Est Glomerular Filtration Rate >60 >=60 [facility] Comment: The reported eGFR should be multiplied by 1.2 for patients. The MDRD is not an appropriate measure of renal function for patients with body mass extremes or in patients with acute kidney failure. http://[employer]/DHnkdep http://[employer]/DHMCnkf Blood specimen (specimen) 09/12/2017 1:29 PM EST 09/12/2017 1:34 PM EST Narrative Resulting Agency Comment Spec In Lab Alejandro Blair MD CHEMISTRY ORDERABL ES Performing Organization Address [facility] Co de Phone Number [facility] [place] [address] * Cardiac Enzymes (LEB/CGP) (09/12/2017 1:29 PM EST) Troponin-T <0.01 0.00 - 0.00 ng/mL [facility] Comment: The 99th percentile for Troponin T is less than 0.01 ng/mL, any detectable cTnT concentration using this assay should be considered elevated. According to the third universal definition of myocardial infarction the following criteria with a clinical presentation consistent with acute myocardial ischemia meets the diagnosis for a myocardial infarction (NE). Detection of a rise and/or fall of cTnT, with at least one value greater than the 99th percentile (> or = 0.01) and with at least one of the following ?? Symptoms of ischemia ?? New or presumed new significant YT-[place]-J wave (ST-T) changes or new left bundle [...] additional sample may be indicated. Reference: Third [place] Definition of Myocardial Infarction. Journal of the [place] College of Cardiology 2012;60:1581-98 Creatine Kinase 65 0 - 200 unit/L [facility] Blood specimen (specimen) 09/12/2017 1:29 PM EST 09/12/2017 1:34 PM EST Narrative Resulting Agency Comment Spec In Lab Alejandro Blair MD CHEMISTRY ORDERABL ES [facility] [place] [address] * EKG 12 Lead (09/12/2017 12:19 PM EST) Ventricular rate 82 BPM MUSE SYSTEM Atrial Rate 82 BPM MUSE SYSTEM P-R Interval 136 ms MUSE SYSTEM QRS Duration 80 ms MUSE SYSTEM Q-T Interval 358 ms MUSE SYSTEM QTC Calculated (Bezet) 418 ms MUSE SYSTEM Calculated P [place] 13 degrees MUSE SYSTEM Calculated R [place] 33 degrees MUSE SYSTEM Calculated T [place] 34 degrees MUSE SYSTEM INTERPRETATION Normal sinus [...] unspecified vessel or lesion type, unspecified whether [place] or transplanted heart Atherosclerosis of [place] coronary artery with unstable angina pectoris, unspecified whether [place] or transplanted heart Unstable angina Intermediate coronary [...] 75 mg, Oral, DAILY, First dose on [place] 09/13/17 at 0900, Until Discontinued, Routine Given 09/14/2017 8:30 AM EST 75 mg Given 09/13/2017 8:50 AM EST 75 mg DULoxetine (CYMBALTA) capsule 60 mg 60 mg, Oral, 2 TIMES DAILY, First dose on [facility] 09/12/17 at 2100, Until Discontinued, Routine Given 09/14/2017 8:30 AM EST 60 mg Given 09/13/2017 8:20 PM EST 60 mg Given 09/13/2017 8:51 AM EST 60 mg gabapentin (NEURONTIN) capsule 600 mg 600 mg, Oral, 2 TIMES DAILY BEFORE BREAKFAST AND LUNCH, First dose (after last modification) on [place] 09/13/17 at 0730, Until Discontinued, Routine Given 09/14/2017 8:00 AM EST 600 mg Given 09/13/2017 1:23 PM EST 600 mg Given 09/13/2017 8:00 AM EST 600 mg gabapentin (NEURONTIN) capsule 900 mg 900 mg, Oral, NIGHTLY, First dose on [facility] 09/12/17 at 2100, Until Discontinued, Routine Given 09/13/2017 8:20 PM EST 900 mg Given 09/12/2017 8:30 PM EST 900 mg heparin (porcine) injection 0-4,000 Units 0-4,000 Units, Intravenous, BOLUS PER HEPARIN PROTOCOL, Starting on [facility] 09/12/17 at 1512, Until [place] 09/13/17 at 1015, Per Protocol, START ADJUSTMENT SCHEDULE 6 HOURS AFTER STARTING INFUSION aPTT Between 60 - 79 seconds: Bolus 2,000 units aPTT Less than 60 seconds: Bolus 4,000 units Increase infusion and recheck aPTT in 6 hours. , Routine Given 09/13/2017 1:18 AM EST 4,000 Units heparin (porcine) injection 4,000 Units 4,000 Units, Intravenous, ONCE, 1 dose, On [facility] 09/12/17 at 1515, INITIAL LOADING DOSE Maximum [...] Transdermal, 2 TIMES DAILY, First dose on [place] 09/13/17 at 0415, Until Discontinued, Verify nicotine [...] 0850 (Given - Provider: Rupal Munguia RN)1002 ([facility] Hold - Provider: Admin Adt - Reason: Transfer to a Procedural area)1134 ([facility] Unhold - Provider: Admin Adt) 0830 (Given - Provider: Rupal Munguia RN) DULoxetine (CYMBALTA) capsule 60 mg 60 mg, Oral, 2 TIMES DAILY, First dose on 09/12/17 at 2100, Until Discontinued, Routine 2030 (Given - Provider: Keisha Mae RN) 0851 (Given - Provider: Rupal Munguia RN)1002 ([facility] Hold - Provider: Admin Adt - Reason: Transfer to a Procedural area)1134 ([facility] Unhold - Provider: Admin Adt)2020 (Given - Provider: Keisha Mae RN) 0830 (Given - Provider: Rupal Munguia RN) gabapentin (NEURONTIN) capsule 600 mg 600 mg, Oral, 2 TIMES DAILY BEFORE BREAKFAST AND LUNCH, First dose (after last modification) on 09/13/17 at 0730, Until Discontinued, Routine 0800 (Given - Provider: Rupal Munguia RN)1002 ([facility] Hold - Provider: Admin Adt - Reason: Transfer to a Procedural area)1130 (Automatically Held - Provider: Admin Adt)1134 ([facility] Unhold - Provider: Admin Adt)1323 (Given - Provider: Rupal Munguia RN - Comment: late lunch) 0800 (Given - Provider: Rupal Munguia RN) gabapentin (NEURONTIN) capsule 900 mg 900 mg, Oral, NIGHTLY, First dose on 09/12/17 at 2100, Until Discontinued, Routine 2030 (Given - Provider: Keisha Mae RN) 1002 ([facility] Hold - Provider: Admin Adt - Reason: Transfer to a Procedural area)1134 ([facility] Unhold - Provider: Admin Adt)2019 (Given [...] 0852 (Given - Provider: Rupal Munguia RN)1002 ([facility] Hold - Provider: Admin Adt - Reason: Transfer to a Procedural area)1134 ([facility] Unhold - Provider: Admin Adt) isosorbide [...] refused) 0853 (Given - Provider: Rupal Munguia, VEOR)1002 ([facility] Hold - Provider: Admin Adt - Reason: Transfer to a Procedural area)1134 ([facility] Unhold - Provider: Admin Adt) 0831 (Given - Provider: Rupal Munguia RN) meTOPROLOL tartrate (LOPRESSOR) tablet 50 mg 50 mg, Oral, 2 TIMES DAILY, First dose on 09/12/17 at 2100, Until Discontinued, Routine 2030 (Given - Provider: Keisha Mae, VERO) 0852 (Given - Provider: Rupal Munguia, VERO)1002 ([facility] Hold - Provider: Admin Adt - Reason: Transfer to a Procedural area)1134 ([facility] Unhold - Provider: Admin Adt)2020 (Given [...] Rupal Munguia RN - Reason: Patient/family refused)1002 ([facility] Hold - Provider: Admin Adt - Reason: Transfer to a Procedural area)1134 ([facility] Unhold - Provider: Admin Adt) 0900 (Not Given - Provider: Rupal Munguia RN - Reason: Patient/family refused) nicotine (NICODERM CQ) 14 mg/24 hr patch Patch Removal(Linked Group 1) Transdermal, DAILY, First dose on 09/13/17 at 1615, Until Discontinued, Remove nicotine 14 mg/24 hr patch 1002 ([facility] Hold - Provider: Admin Adt - Reason: Transfer to a Procedural area)1134 ([facility] Unhold - Provider: Admin Adt)1615 (Patch [...] comment - Comment: not placed; pt refused)1002 ([facility] Hold - Provider: Admin Adt - Reason: Transfer to a Procedural area)1134 ([facility] Unhold - Provider: Admin Adt)2100 (Not [...] 0852 (Given - Provider: Rupal Munguia RN)1002 ([facility] Hold - Provider: Admin Adt - Reason: Transfer to a Procedural area)1134 ([facility] Unhold - Provider: Admin Adt)2019 (Given - Provider: Keisha Mae RN) 0830 (Given - Provider: Rupal Munguia RN) pramipexole (MIRAPEX) tablet 0.5 mg 0.5 mg, Oral, NIGHTLY, First dose on 09/12/17 at 2100, Until Discontinued, Routine 2030 (Given - Provider: Keisha Mae RN) 1002 ([facility] Hold - Provider: Admin Adt - Reason: Transfer to a Procedural area)1134 ([facility] Unhold - Provider: Admin Adt)2018 (Given - Provider: Keisha Mae RN) rosuvastatin (CRESTOR) tablet 20 mg 20 mg, Oral, EVERY EVENING, First dose on 09/12/17 at 1800, Until Discontinued, Routine 1818 (Given - Provider: Mariela So, VERO) 1002 ([facility] Hold - Provider: Admin Adt - Reason: Transfer to a Procedural area)1134 ([facility] Unhold - Provider: Admin Adt)1639 (Given - Provider: Rupal Munguia, VERO) sodium chloride 0.9 % flush 5 mL 5 mL, Intravenous, 2 TIMES DAILY, First dose on 09/12/17 at 2100, Until Discontinued, Routine 2100 (Not Given - Provider: Keisha Mae RN - Reason: Contraindicated - Comment: iv infusing) 0900 (Not Given - Provider: Rupal Munguia RN - Reason: Contraindicated)1002 ([facility] Hold - Provider: Admin Adt - Reason: Transfer to a Procedural area)1134 ([facility] Unhold - Provider: Admin Adt)2099 (Not [...] (Given - Provider: Keisha Mae RN) 1002 ([facility] Hold - Provider: Admin Adt - Reason: Transfer to a Procedural area)1134 ([facility] Unhold - Provider: Admin Adt)2019 (Given [...] - Reason: Transfer to a Procedural area)1015 ([facility] Unhold - Provider: Admin Adt) heparin [...] - Reason: Transfer to a Procedural area)1134 ([facility] Unhold - Provider: Admin Adt) lidocaine [...] RN)0809 (Given - Provider: Rupal Munguia RN)1002 ([facility] Hold - Provider: Admin Adt - Reason: Transfer to a Procedural area)1134 ([facility] Unhold - Provider: Admin Adt) oxyCODONE (ROXICODONE) immediate release tablet 10 mg 10 mg, Oral, 4 TIMES DAILY PRN, Starting on 09/12/17 at 1735, Until 09/14/17 at 1312, pain unresponsive to tylenol, Routine 1002 ([facility] Hold - Provider: Admin Adt - Reason: Transfer to a Procedural area)1134 ([facility] Unhold - Provider: Admin Adt)2024 (Given [...] provided on this medication record., Routine 1002 ([facility] Hold - Provider: Admin Adt - Reason: Transfer to a Procedural area)1134 ([facility] Unhold - Provider: Admin Adt) sodium [...] Cath (Intra-Procedure) 1042 (New Bag - Provider: Marinane Barker)1100 (Stopped - Provider: Rupal Munguia RN) [...] UA) documented in this encounter Care Teams Retail Bakery Manager Relationship Specialty Start Date End Date Coni Lim MD [address] [place] [address] PCP - General 07/16/10 documented as of this encounter
--- OUTSIDE RECORDS SUMMARY | 2024-04-30 18:20 | XMS_ITS | Encounter Summary ---
Author Organization [facility] Address [facility] [place] [address] Care Team Providers Care Office Machines Wirer Name Role Phone Coni Lim MD Primary Care Provider [phone] Reason for Visit * Auth/Cert Specialty Diagnoses / Procedures Referred By Ruby t Referred To Contact Diagnoses ACS (acute coronary syndrome) UNSTABLE ANGINA Referral ID Status Reason Start Date Expiration Date Visits Re quested Visits Authorized [id number] 1 1 Encounter Details Date Type Department Care Team (Late st Contact Info) Description 03/14/2019 1:01 PM EDT - 03/14/2019 2:01 PM EDT Surgery [place] [id number] Lexus Gutiérrez MD [facility] [place] [address] CARDIAC CATHETERIZATION Social History Tobacco Use Types [...] Romeo Coe Patient Age: 53 y.o. Language: Cymraes Race: White Ethnicity: Not nor Admit date: [...] Contact Information: MD Esperanza Solis, KRYSTINA Bush, JAVA WEB DEVELOPER [phone] Discharge Diagnoses (Hospital Problems) and Secondary Diagnoses [...] TIA and GERD who was transferred from [facility] with a diagnosis of UAP. [...] was called. ?? His last admission to [facility] was in Aug 2017 [...] started on Heparin gtt and transferred to [facility] for cardiac cath. Hospital Course: Undifferentiated Chest Pain - Coronary Vasospasm/Microvessel angina vs Non- Cardiac Chest Pain Romeo Coe is a 53 yo M transferred from [facility] for evaluation of unstable angina. [...] PF, Split 07/30/2013 ??? Influenza Vaccine (Novel) [id number], Injectable 05/24/2009 ??? Influenza Vaccine w/Preservative, Split [...] appointments: During 8am-5pm Thursday through Thursday call [phone] to speak with a nurse in the cardiology clinic All other times call [phone] and ask to speak to the nuclear equipment sales engineer environmental specialist. Return to work: Ok to resume, no heavy lifting for one week (nothing over 10 lbs) Driving: No driving for 48 hours after catheterization. Follow up Appointments: PCP Coni Lim MD/Keo Ballard [phone] Your follow up appointment is scheduled for March 25, 2019 at 10 45 am Cardiology- Dr. Lawson - [phone] (First apt at [facility], then you will be seen at [facility] thereafter).Your follow up appointment is scheduled for Saturday April 13, 2019 at 1:15 pm Home oxygen therapy: N/A Arrangements for VNA/home care: none Discharge References/Attachments None Esperanza Collier APRN Cardiovascular Medicine Pager [phone] 03/16/2019 documented in this encounter Discharge Instructions * Discharge Instructions* Esperanza oCllier APRN - 03/16/2019 3:00 PM EDT Call your doctor if: Chest pain, shortness of breath, pain or swelling in legs occurs. If you have non-emergent questions between now and the time of your follow up appointments: During 8am-5pm Thursday through Thursday call [phone] to speak with a nurse in the cardiology clinic All other times call [phone] and ask to speak to the nuclear equipment sales engineer environmental specialist. Return to work: Ok to resume, no heavy lifting for one week (nothing over 10 lbs) Driving: No driving for 48 hours after catheterization. Follow up Appointments: PCP Coni Lim MD/Keo Ballard [phone] Your follow up appointment is scheduled for March 25, 2019 at 10 45 am Cardiology- Dr. Lawson - [phone] (First apt at [facility], then you will be seen at [facility] thereafter).Your follow up appointment is [...] Progress Note Patient Name: Romeo Coe Service: STEAM SHOVEL OPERATOR / PA Responsible Attending: Wale Mckeon MD [...] Full code Discussed with MD Esperanza Brar [facility] Cardiovascular Medicine Pager [phone] 03/16/2019 Attending Clinical Nurse Educator Addendum: This patient was seen in conjunction with Esperanza Collier as part of a shared visit. I have independently interviewed and examined the patient and reviewed the pertinent diagnostic information. I agree with the principal findings documented above. The assessment and plan were formulated in discussion with me. Ruled out PE with CT today. Ready for discharge on medical therapies. Wale Mckeon MD, [facility], [facility] Staff Clinical Nurse Educator pager [phone] * Jacqueline Montes De Oca RN - [...] Progress Note Patient Name: Romeo Coe Service: STEAM SHOVEL OPERATOR / PA Responsible Attending: Wale Mckeon MD Reason for continued hospitalization: Evaluation and management of unstable angina S/p [facility] Medication adjustment Active Problems: Active Hospital [...] Full code Discussed with MD Esperanza Brar [facility] Cardiovascular Medicine Pager [phone] 03/15/2019 Attending Clinical Nurse Educator Addendum: This patient was seen in conjunction [...] limited us thus far. Wale Mckeon MD, [facility], [facility] Staff Clinical Nurse Educator pager [phone] * Wale Mckeon MD - 03/14/2019 9:23 AM EDT Images from the original note were not included. Inpatient Cardiology Progress Note Patient Name: Romeo Coe Service: STEAM SHOVEL OPERATOR / PA Responsible Attending: Wale Mckeon MD Reason for continued hospitalization: Evaluation and management of unstable angina Awaiting [facility] today Active Problems: Active Hospital Problems Diagnosis ??? ACS (acute coronary syndrome) Resolved Hospital Problems No resolved problems to display. Interval History: Admitted overnight in the setting of unstable angina. Troponins negative. TTE with preserved EF at 63% and no WMA. Awaiting [facility] today. Review of Systems: Review of [...] Full code Discussed with MD Siri Brar, JAVA WEB DEVELOPER Pager [phone] 03/14/2019 Attending Clinical Nurse Educator Addendum: This patient was seen in conjunction [...] regimen today (include vasodilator) Wale Mckeon MD, [facility], [facility] Staff Clinical Nurse Educator pager [phone] documented in this encounter H&P Notes * [...] TIA and GERD who was transferred from [facility] with a diagnosis of UAP. [...] EMS was called. His last admission to [facility] was in Aug 2017 [...] started on Heparin gtt and transferred to [facility] for cardiac cath. Past [...] of Onset ??? Myocardial Infarction Father 46 MS, CABG ??? Heart Disease Father ??? Diabetes [...] file Gets together: Not on file Attends confucianism service: Not on file Active member of [...] Lives with and daughter at home in [place], [place]. He is disabled now. He used [...] edema . Pulses palpable, no calf tenderness Neuro/PATTERN CHANGER AND REPAIRER: AAO x 3, No evident deficits Skin/Integumentary: [...] multiple PCIs since 2011. Last Cath at [facility] in Aug 2017 that [...] OUTCOME EVALUATION NOTE: OUTCOME SUMMARY: Patient to labor and delivery registered nurse today. No interventions. Right radial cath site [...] TIA and GERD who was transferred from [facility] with a diagnosis of UAP Past Medical History: Diagnosis Date ??? Allergy ??? CAD (coronary artery disease), non-obstructive 05/31/2012 ??? Depression ??? DM (diabetes mellitus) 05/31/2012 ??? Dyslipidemia 05/31/2012 ??? GERD (gastroesophageal reflux disease) 05/31/2012 ??? HTN (hypertension) 05/31/2012 ??? Hx-TIA (transient ischemic attack) 06/03/2012 ??? Smoker 05/31/2012 Hospitalizations Within the Past 30 Days: no [facility] admits in last 30 days. Anticipated Length Of Stay (If known): 1-3 days Current Decision-Making Capacity: Patient is A&Ox4 and able to make all medical decisions Advance Care Planning: Full Code Not in EPIC.This author discussed ADs with patient and offered advance directive booklet and forms,patient deferred will discuss with family at a later time. [place] and process of guardianship explained. If AD's have not been completed then Spouse Dasia would be surrogate decision maker per [place] surrogate decision making law. Current Coping/Education/Information Needs: Current coping questions and concerns have been addressed. Current Functional Ability: assist of staff Functional Status Prior to Admission: independent with ADLs, driving, no DME used at baseline. Home Environment: lives in 2 level house, bedroom downstairs, no stairs to enter from outside. [address] [facility] [address] Social & Family Supports/Community Resources: lives with spouse and daughter Extended Emergency Contact Information Primary Emergency Contact: Dasia Coe Address: [address] [place] [address] [facility] Relation: Spouse Health/Prescription Coverage: Primary Insurance: MEDICARE Secondary Insurance: N/A Prescription Coverage: Yes Preferred Pharmacy: [id number] - [place] [id number] [facility] [address] [place] [id number] Other: none Primary Care Provider: Coni Lim MD [phone] Patient/Caregiver Goals of Treatment: return to previous [...] of care planning. Rashmi Simmons, VERO Nurse Physical Plant Manager Pager [phone] * Op Note - Lexus Gutiérrez MD - 03/14/2019 10:54 AM EDT [facility] Operative Note Patient Name: Romeo Coe : [id number] MR#: [id number] Case Date: 03/14/2019 Surgeon: Surgeon(s) and Role: * Lexus Gutiérrez MD - Primary * Satnam Leger MD - Fellow Preoperative diagnosis: ?CAD Postoperative diagnosis: No new obstructive lesions from prior cath Procedure(s) (LRB): CARDIAC CATHETERIZATION (N/A) CORONARY ANGIOGRAPHY; W [facility],POSSIBLE PCI (N/A) Access: Radial provided good support for procedure. 6 Fr RRA with TR band in place, good hemostasis. The patient tolerated the procedures smoothly and was transferred from the cardiac catheterization lab to the next level of care in stable condition, without pain. No evident early complications. Results discussed with service sweet pickled fruit maker Dr Mckeon, and with the patient. He did not have family that he preferred we call. He needs to be connected with a referring sweet pickled fruit maker locally (seen at [facility]). A time-out was conducted prior [...] Dean had a good night. Arrived from [facility] hospital on Heparin drip. Denied [...] further details. Ed Simpson MD 03/14/2019 Pager [phone] documented in this encounter Plan of Treatment [...] please contact the number below. Esperanza Collier JAVA WEB DEVELOPER IMG CT ORDERABLES * POCT Glucose (03/16/2019 11:34 AM EDT) Glucose, POC 106 65 - 199 mg/dL [facility] Comment: Supplemental ranges: <140 mg/dL before meals <180 mg/dL all other times of the day Blood specimen (specimen) 03/16/2019 11:34 AM EDT 03/16/2019 11:34 AM EDT Wale Mckeon MD POINT OF CARE TEST O RDERABLES Performing Organization Address City/[facility]/ZIP Co de Phone Number [facility] [place] [place] [address] * POCT Glucose (03/16/2019 7:38 AM EDT) Glucose, POC 102 65 - 199 mg/dL [facility] Comment: Supplemental ranges: <140 mg/dL before meals <180 mg/dL all other times of the day Blood specimen (specimen) 03/16/2019 7:38 AM EDT 03/16/2019 7:38 AM EDT Wale Mckeon MD POINT OF CARE TEST O RDERABLES Performing Organization Address [facility] Co de Phone Number [facility] [place] [place] [address] * EKG 12 Lead (03/16/2019 7:07 AM EDT) Ventricular rate 59 BPM MUSE SYSTEM Atrial Rate 59 BPM MUSE SYSTEM P-R Interval 148 ms MUSE SYSTEM QRS Duration 88 ms MUSE SYSTEM Q-T Interval 408 ms MUSE SYSTEM QTC Calculated (Bezet) 403 ms MUSE SYSTEM Calculated P [place] 7 degrees MUSE SYSTEM Calculated R [place] 23 degrees MUSE SYSTEM Calculated T [place] 40 degrees MUSE SYSTEM INTERPRETATION Sinus bradycardia Otherwise normal ECG When compared with ECG of 15-MAR-2019 20:23, No significant change was found Confirmed by MD SOUMYA, JENNIFER ([id number]) on 03/16/2019 8:30:39 AM MUSE SYSTEM 03/16/2019 7:07 AM EDT 03/16/2019 8:30 AM EDT Siri Bush APRN ECG ORDERABLES Performing Organization Address City/[facility] Co de Phone Number MUSE SYSTEM * Differential, Automated (03/16/2019 5:07 AM EDT) Neutrophil % 48.9 % [facility] Neutrophil Absolute 3.25 1.70 - 6.10 x10(3)/mcL [facility] Lymph % 38.1 % [facility] Lymphocytes Abs 2.5 0.9 - 3.2 x10(3)/[facility] Monocyte % 8.0 % [facility] Monocyte Abs 0.5 0.3 - 0.9 x10(3)/[facility] Eos % 4.2 % [facility] Eosinophils Abs 0.3 0.0 - 0.4 x10(3)/[facility] Basophil % 0.5 % [facility] Baso Absolute 0.0 0.0 - 0.1 x10(3)/[facility] Immature Gran % 0.30 % [facility] Comment: Immature granulocytes(IG's)percentage and absolute count will include metamyelocytes, myelocytes, and promyelocytes. Blood smears from CBCs yielding IG's will be scanned manually for concordance. If this scan disagrees with the automated IG or if promyelocytes are noted, a manual differential will be performed. Immature Gran Absolute 0.02 0.00 - 0.04 x10(3)/[facility] Blood specimen (specimen) 03/16/2019 5:07 AM EDT 03/16/2019 5:24 AM EDT Narrative Resulting Agency Comment Spec In Lab Siri Bush APRN HEMATOLOGY ORDERAB LES [facility] [place] [place] [address] * Hemogram (03/16/2019 5:07 AM EDT) White Blood Cell 6.6 4.0 - 9.5 x10(3)/[facility] Red Blood Cell 5.33 4.58 - 5.54 x10(6)/[facility] Hemoglobin 15.6 13.7 - 16.5 gm/dL [facility] Hematocrit 45.4 40.5 - 48.5 % [facility] Mean Cell Volume 85.2 82.9 - 93.1 fL [facility] Mean Cell Hemoglobin 29.3 27.5 - 32.1 pg [facility] Mean Cell Hemoglobin Concentration 34.4 32.0 - 35.7 gm/dL [facility] Platelet 154 145 - 357 x10(3)/[facility] RDW Standard Deviation 38.3 36.0 - 45.0 [facility] RDW coefficient of variation 12.5 11.4 - 13.8 % [facility] Mean Platelet Volume 10.9 7.6 - 12.9 [facility]ORY NRBC% auto 0.0 % [facility] NRBC Absolute 0.000 0.000 - 0.000 x10(3)/[facility] Blood specimen (specimen) 03/16/2019 5:07 AM EDT 03/16/2019 5:24 AM EDT Narrative Resulting Agency Comment Spec In Lab Siri Bush APRN HEMATOLOGY ORDERAB LES [facility] [place] [place] [address] * (ABNORMAL) BMP w/fasting Glucose (03/16/2019 5:07 AM EDT) Glucose Fasting 119(H) 65 - 99 mg/dL [facility] [...] of Diabetes Mellitus, Position Statement from the [place] Diabetes Association. ??Diabetes Care, Volume 33, Supplement 1, Aug 2009 Blood Urea Nitrogen 10 10 - 20 mg/dL [facility] Creatinine 0.91 0.80 - 1.50 mg/dL [facility] Sodium 138 135 - 145 mmol/L [facility] Potassium 3.6 3.5 - 5.0 mmol/L [facility] [...] mmol/L [facility] Anion Gap 12 5 - 15 mmol/L [facility] Calcium 9.2 8.5 - 10.5 mg/dL [facility] Est Glomerular Filtration Rate 97 >=60 mL/min/1. 73 m?? [facility] Comment: The eGFR was calculated using the CKD-EPI equation. As with all creatinine based estimates of kidney function, eGFR values calculated with the CKD-EPI equation are not accurate in patients with acute kidney failure, extremes of body mass or the acutely ill. http://MiniBrake/DHnkf eGFR 113 >=60 mL/min/1. 73 m?? [facility] Comment: The eGFR was calculated using the CKD-EPI equation. As with all creatinine based estimates of kidney function, eGFR values calculated with the CKD-EPI equation are not accurate in patients with acute kidney failure, extremes of body mass or the acutely ill. http://MiniBrake/DHMCnkf Blood specimen (specimen) 03/16/2019 5:07 AM EDT 03/16/2019 5:24 AM EDT Narrative Resulting Agency Comment Spec In Lab Siri Bush APRN CHEMISTRY ORDERABL ES [facility] [place] [place] [address] * EKG 12 Lead (03/15/2019 8:23 PM EDT) Ventricular rate 65 BPM MUSE SYSTEM Atrial Rate 65 BPM MUSE SYSTEM P-R Interval 140 ms MUSE SYSTEM QRS Duration 86 ms MUSE SYSTEM Q-T Interval 384 ms MUSE SYSTEM QTC Calculated (Bezet) 399 ms MUSE SYSTEM Calculated P [place] 16 degrees MUSE SYSTEM Calculated R [place] 39 degrees MUSE SYSTEM Calculated T [place] 37 degrees MUSE SYSTEM INTERPRETATION Normal sinus rhythm Normal ECG When compared with ECG of 15-MAR-2019 10:49, No significant change was found Confirmed by MD SOUMYA, JENNIFER ([id number]) on 03/16/2019 12:17:34 AM MUSE SYSTEM 03/15/2019 8:23 PM EDT 03/16/2019 12:17 AM EDT Wale Mckeon MD ECG ORDERABLES Performing Organization Address [facility]/ZIP Co de Phone Number MUSE SYSTEM * POCT Glucose (03/15/2019 8:13 PM EDT) Glucose, POC 134 65 - 199 mg/dL [facility] Comment: Supplemental ranges: <140 mg/dL before meals <180 mg/dL all other times of the day Blood specimen (specimen) 03/15/2019 8:13 PM EDT 03/15/2019 8:13 PM EDT Wale Mckeon MD POINT OF CARE TEST O RDERABLES [facility] [place] [address] * POCT Glucose (03/15/2019 4:58 PM EDT) Glucose, POC 109 65 - 199 mg/dL [facility] Comment: Supplemental ranges: <140 mg/dL before meals <180 mg/dL all other times of the day Blood specimen (specimen) 03/15/2019 4:58 PM EDT 03/15/2019 4:58 PM EDT Wale Mckeon MD POINT OF CARE TEST O RDEFE Performing Organization Address City/[facility]/ZIP Co de Phone Number [facility] [place] [address] * POCT Glucose (03/15/2019 11:47 AM EDT) Pathologist [facility] Glucose, POC 110 65 - 199 mg/dL [facility] Comment: Supplemental ranges: <140 mg/dL before meals <180 mg/dL all other times of the day Blood specimen (specimen) 03/15/2019 11:47 AM EDT 03/15/2019 11:47 AM EDT Wale Mckeon MD POINT OF CARE TEST O EVITA Performing Organization Address [facility] Co de Phone Number [facility] [place] [address] * Troponin (03/15/2019 11:17 AM EDT) [facility] Troponin-T <0.01 0.00 - 0.00 ng/mL [facility] Comment: The 99th percentile for Troponin T is less than 0.01 ng/mL, any detectable cTnT concentration using this assay should be considered elevated. According to the third universal definition of myocardial infarction the following criteria with a clinical presentation consistent with acute myocardial ischemia meets the diagnosis for a myocardial infarction (MS). Detection of a rise and/or fall of cTnT, with at least one value greater than the 99th percentile (> or = 0.01) and with at least one of the following ?? Symptoms of ischemia ?? New or presumed new significant OV-cclsqmx-G wave (ST-T) changes or new left bundle [...] additional sample may be indicated. Reference: Third Mullens Definition of Myocardial Infarction. Journal of the [place] College [employer]iology 2012;60:1581-98 Blood specimen (specimen) 03/15/2019 11:17 AM EDT 03/15/2019 11:42 AM EDT Narrative Resulting Agency Comment Spec In Lab Esperanza Collier KRYSTINA CHEMISTRY ORDERABLES Performing Organization Address [facility] Co de Phone Number [facility] [place] [place] [address] * EKG 12 Lead (03/15/2019 10:49 AM EDT) Ventricular rate 59 BPM MUSE SYSTEM Atrial Rate 59 BPM MUSE SYSTEM P-R Interval 140 ms MUSE SYSTEM QRS Duration 86 ms MUSE SYSTEM Q-T Interval 398 ms MUSE SYSTEM QTC Calculated (Bezet) 394 ms MUSE SYSTEM Calculated P [place] 13 degrees MUSE SYSTEM Calculated R [place] 42 degrees MUSE SYSTEM Calculated T [place] 49 degrees MUSE SYSTEM INTERPRETATION Sinus bradycardia Otherwise normal ECG When compared with ECG of 15-MAR-2019 07:08, No significant change was found Confirmed by MD Buchanan Timothy ([id number]) on 03/15/2019 12:09:31 PM MUSE SYSTEM 03/15/2019 10:4 9 AM EDT 03/15/2019 12:09 PM EDT Esperanza Cohen Amira FLAHERTY ECG ORDERABLES Performing Organization Address [facility] de Phone Number MUSE SYSTEM * POCT Glucose (03/15/2019 7:57 AM EDT) Glucose, POC 114 65 - 199 mg/dL [facility] Comment: Supplemental ranges: <140 mg/dL before meals <180 mg/dL all other times of the day Blood specimen (specimen) 03/15/2019 7:57 AM EDT 03/15/2019 7:57 AM EDT Wale Mckeon MD POINT OF CARE TEST O RDERABLES Performing Organization Address [facility] Co de Phone Number [facility] [place] [address] * EKG 12 Lead (03/15/2019 7:08 AM EDT) Ventricular rate 58 BPM MUSE SYSTEM Atrial Rate 58 BPM MUSE SYSTEM P-R Interval 140 ms MUSE SYSTEM QRS Duration 90 ms MUSE SYSTEM Q-T Interval 410 ms MUSE SYSTEM QTC Calculated (Bezet) 402 ms MUSE SYSTEM Calculated P [place] 5 degrees MUSE SYSTEM Calculated R [place] 24 degrees MUSE SYSTEM Calculated T [place] 34 degrees MUSE SYSTEM INTERPRETATION Sinus bradycardia Otherwise normal ECG When compared with ECG of 14-MAR-2019 19:41, No significant change was found Confirmed by MD SOUMYA, JENNIFER ([id number]) on 03/15/2019 9:53:01 AM MUSE SYSTEM 03/15/2019 7:08 AM EDT 03/15/2019 9:53 AM EDT Siri Panchal Wilton KRYSTINA ECG ORDERABLES MUSE SYSTEM * Differential, Automated (03/15/2019 5:01 AM EDT) Pathologist [facility] Neutrophil % 46.9 % [facility] Neutrophil Absolute 2.78 1.70 - 6.10 x10(3)/[facility] Lymph % 40.6 % [facility] Lymphocytes Abs 2.4 0.9 - 3.2 x10(3)/[facility] Monocyte % 7.7 % [facility] Monocyte Abs 0.5 0.3 - 0.9 x10(3)/[facility] Eos % 3.7 % [facility] Eosinophils Abs 0.2 0.0 - 0.4 x10(3)/[facility] Basophil % 0.8 % [facility] Baso Absolute 0.0 0.0 - 0.1 x10(3)/[facility] Immature Gran % 0.30 % [facility] Comment: Immature granulocytes(IG's)percentage and absolute count will include metamyelocytes, myelocytes, and promyelocytes. Blood smears from CBCs yielding IG's will be scanned manually for concordance. If this scan disagrees with the automated IG or if promyelocytes are noted, a manual differential will be performed. Immature Gran Absolute 0.02 0.00 - 0.04 x10(3)/[facility] Blood specimen (specimen) 03/15/2019 5:01 AM EDT 03/15/2019 5:12 AM EDT Narrative Resulting Agency Comment Spec In Lab Siri Bush JAVA WEB DEVELOPER HEMATOLOGY ORDERAB LES [facility] [place] [address] * Hemogram (03/15/2019 5:01 AM EDT) White Blood Cell 5.9 4.0 - 9.5 x10(3)/[facility] LABORATORY Red Blood Cell 4.95 4.58 - 5.54 x10(6)/[facility] LABORATORY Hemoglobin 14.6 13.7 - 16.5 gm/dL [facility] Hematocrit 43.1 40.5 - 48.5 % [facility] Mean Cell Volume 87.1 82.9 - 93.1 fL [facility] Mean Cell Hemoglobin 29.5 27.5 - 32.1 pg [facility] Mean Cell Hemoglobin Concentration 33.9 32.0 - 35.7 gm/dL [facility] Platelet 156 145 - 357 x10(3)/[facility] LABORATORY RDW Standard Deviation 40.2 36.0 - 45.0 [facility] LABORATORY RDW coefficient of variation 12.5 11.4 - 13.8 % [facility] Mean Platelet Volume 10.4 7.6 - 12.9 [facility] LABORATORY NRBC% auto 0.0 % [facility] LABOR[facility]ORY NRBC Absolute 0.000 0.000 - 0.000 x10(3)/[facility] LABORATORY Blood specimen (specimen) 03/15/2019 5:01 AM EDT 03/15/2019 5:12 AM EDT Narrative Resulting Agency Comment Spec In Lab Siri Bush JAVA WEB DEVELOPER HEMATOLOGY ORDERAB LES [facility] [place] [address] * (ABNORMAL) BMP w/fasting Glucose (03/15/2019 5:01 AM EDT) Glucose Fasting 120(H) 65 - 99 mg/dL [facility] [...] of Diabetes Mellitus, Position Statement from the [place] Diabetes Association. ??Diabetes Care, Volume 33, Supplement 1, Aug 2009 Blood Urea Nitrogen 11 10 - 20 mg/dL [facility] Creatinine 0.90 0.80 - 1.50 mg/dL [facility] Sodium 142 135 - 145 mmol/L [facility] Potassium 3.8 3.5 - 5.0 mmol/L [facility] Comment: Please note: ??Patients with WBC >100,000 may have falsely elevated Potassium levels. ??For accurate Potassium quantification in these patients send serum separator tube (gold top) for subsequent determinations. ??Contact the Clinical Chemistry Laboratory if there are any questions. Chloride 109(H) 98 - 107 mmol/L [facility] Carbon Dioxide 23 22 - 31 mmol/L [facility] Anion Gap 10 5 - 15 mmol/L [facility] Calcium 9.1 8.5 - 10.5 mg/dL [facility] Est Glomerular Filtration Rate 99 >=60 mL/min/1. 73 m?? [facility] Comment: The eGFR was calculated using the CKD-EPI equation. As with all creatinine based estimates of kidney function, eGFR values calculated with the CKD-EPI equation are not accurate in patients with acute kidney failure, extremes of body mass or the acutely ill. [email or web address]nkf eGFR 114 >=60 mL/min/1. 73 m?? [facility] Comment: The eGFR was calculated using the CKD-EPI equation. As with all creatinine based estimates of kidney function, eGFR values calculated with the CKD-EPI equation are not accurate in patients with acute kidney failure, extremes of body mass or the acutely ill. [email or web address]/[facility] [place] Blood specimen (specimen) 03/15/2019 5:01 AM EDT 03/15/2019 5:12 AM EDT Narrative Resulting Agency Comment Spec In Lab Siri Bush APRN CHEMISTRY ORDERABL ES [facility] [place] [address] * (ABNORMAL) Hemoglobin A1c (03/15/2019 5:01 AM EDT) Hemoglobin A1c 6.8(H) 4.3 - 5.6 % [facility] [...] Mellitus, Diabetes Care 2013; 36: Suppl. 1, N27-57 Estimated Average Glucose 148 mg/dL [facility] Comment: eAG [...] into estimated average glucose values. ??Diabetes Care 2008:31(8):0633-1932. Blood specimen (specimen) 03/15/2019 5:01 AM EDT 03/15/2019 5:12 AM EDT Narrative Resulting Agency Comment Spec In Lab Siri Bush APRN CHEMISTRY ORDERABL ES [facility] [place] [address] * Lipid Panel (03/15/2019 5:01 AM EDT) Cholesterol, Total 207 mg/dL [facility] Comment: Lower Risk: <200 mg/dL Average Risk: 200-239 mg/dL Higher Risk: >my=301 mg/dL Triglyceride 256 mg/dL [facility] Comment: Average Risk/Lower Risk: <150 mg/dL Borderline High Risk: 150-199 mg/dL High Risk: 200-499 mg/dL Very High Risk: >tp=448 mg/dL HDL Cholesterol 28 mg/dL [facility] Comment: Males: ?? Higher Risk: <40 mg/dL Females: ?? HIgher Risk: <50 mg/dL LDL Cholesterol 128 mg/dL [facility] Comment: Lowest Risk: <100 mg/dL Lower Risk: 100-129 mg/dL Borderline High Risk: 130-159 mg/dL High Risk: 160-189 mg/dL Very High Risk: >zj=718 mg/dL Cholesterol/HDL Ratio 7.4 ratio [facility] Lipid Interpretation See Note [facility] Comment: Lipid management should be guided by a patient? s ASCVD risk, goals and preferences. ACC/AHA Guidelines recommend high intensity statin if clinical ASCVD or LDL greater than or equal to 190 mg/dL. [email or web address]-[email or web address]-[email or web address] Adults aged 40-75 with LDL 70-189 mg/dL should have their 10 year ASCVD risk estimated with the ACC/AHA ASCVD risk wellness ambassador http://tools.acc.org/WOZYA-Cyav-Lepfrjcqu/ Statin should be discussed if risk greater [...] Lab Siri Bush APRN CHEMISTRY ORDERABL ES [facility] [place] [place] [address] * POCT Glucose (03/14/2019 7:50 PM EDT) Glucose, POC 123 65 - 199 mg/dL [facility] Comment: Supplemental ranges: <140 mg/dL before meals <180 mg/dL all other times of the day Blood specimen (specimen) 03/14/2019 7:50 PM EDT 03/14/2019 7:50 PM EDT Wale Mckeon MD POINT OF CARE TEST O RDERABLES Performing Organization Address [facility] Co de Phone Number [facility] [place] [address] * EKG 12 Lead (03/14/2019 7:41 PM EDT) [facility] Ventricular rate 59 BPM MUSE SYSTEM Atrial Rate 59 BPM MUSE SYSTEM P-R Interval 142 ms MUSE SYSTEM QRS Duration 80 ms MUSE SYSTEM Q-T Interval 396 ms MUSE SYSTEM QTC Calculated (Bezet) 392 ms MUSE SYSTEM Calculated P [place] 40 degrees MUSE SYSTEM Calculated R [place] 37 degrees MUSE SYSTEM Calculated T [place] 46 degrees MUSE SYSTEM INTERPRETATION Sinus bradycardia Otherwise normal ECG When compared with ECG of 14-MAR-2019 01:06, No significant change was found Confirmed by MD SOUMYA, JENNIFER ([id number]) on 03/15/2019 9:52:58 AM MUSE SYSTEM 03/14/2019 7:41 PM EDT 03/15/2019 9:52 AM EDT Wale Mckeon MD ECG ORDERABLES Performing Organization Address [facility] de Phone Number MUSE SYSTEM * POCT Glucose (03/14/2019 4:21 PM EDT) [facility] Glucose, POC 128 65 - 199 mg/dL [facility] Comment: Supplemental ranges: <140 mg/dL before meals <180 mg/dL all other times of the day Blood specimen (specimen) 03/14/2019 4:21 PM EDT 03/14/2019 4:21 PM EDT Wale Mckeon MD POINT OF CARE TEST O RDERABLES Performing Organization Address [facility] Co de Phone Number [facility] [place] [address] * Troponin (03/14/2019 3:10 PM EDT) [facility] Troponin-T <0.01 0.00 - 0.00 ng/mL [facility] Comment: The 99th percentile for Troponin T is less than 0.01 ng/mL, any detectable cTnT concentration using this assay should be considered elevated. According to the third universal definition of myocardial infarction the following criteria with a clinical presentation consistent with acute myocardial ischemia meets the diagnosis for a myocardial infarction (MS). Detection of a rise and/or fall of cTnT, with at least one value greater than the 99th percentile (> or = 0.01) and with at least one of the following ?? Symptoms of ischemia ?? New or presumed new significant JE-aawvtsi-G wave (ST-T) changes or new left bundle [...] additional sample may be indicated. Reference: Third Mullens Definition of Myocardial Infarction. Journal of the [place] College of Cardiology 2012;60:1581-98 Blood specimen (specimen) 03/14/2019 3:10 PM EDT 03/14/2019 3:19 PM EDT Narrative Resulting Agency Comment Spec In Lab Wale Mckeon MD CHEMISTRY ORDERABLES Performing Organization Address City/State/[facility] Co de Phone Number [facility] [place] [address] * XR Chest PA or AP 1 [...] residents interpretationand agree with the findings, Isabel Fnog at 03/14/2019 3:46 PM Thank you for letting us participate in the care of this patient. Forquestions regarding this report, please contact the number below. Ed Simpson MD IMG DX ORDERABLES * POCT Glucose (03/14/2019 11:41 AM EDT) [facility] Signature Glucose, POC 96 65 - 199 mg/dL [facility] Comment: Supplemental ranges: <140 mg/dL before meals <180 mg/dL all other times of the day Blood specimen (specimen) 03/14/2019 11:41 AM EDT 03/14/2019 11:41 AM EDT Wale Mckeon MD POINT OF CARE TEST O RDERABLES [facility] [place] [address] * CARDIAC CATHETERIZATION (03/14/2019 10:55 AM EDT) Anatomical Region Laterality Modality Other Narrative 03/15/2019 4:29 PM EDT ?[facility] ? Cardiac Catheterization/Intervention Report ? Patient Name: Coe, Romeo A. ? Procedure Date: 03/14/2019 ? A #: [id number] ? Primary Physician: Lexus Gutiérrez ? Case #: [id number] ? File Name: [id number] ? Catheterization Order Number: [id number] ? [facility] ? Final Report [place], [place] ? Patient Name: ? Rmoeo Coe ? ID#: ?[id number] ? : ?1965 ? Procedure Date: ? [...] procedure was Urgent. The indication for ?the labor and delivery registered nurse visit is ACS less than or equal [...] Note Lexus Gutiérrez MD - 08/13/2019 [facility] Cardiac Catheterization/Intervention Report Patient Name: Romeo Coe Procedure Date: 03/14/2019 A #: [id number] Primary Physician: Lexus Gutiérrez Case #: File Name: [id number] Catheterization Order Number: [id number] [facility] FinalReport [place], [place] Patient Name: Romeo Coe ID#:[id number] :1965 Procedure Date: March 14, 2019 Case [...] patient was designated as ASAClass III. The [facility] clinical frailty scale is 2: Well. Diagnostic Tests: Prior Coronary Angiography: Prior coronary angiography was performed on 09/13/2017 andshowed non-obstructive CAD. LV ejection fraction within 6 months is63%. Electrocardiography: EKG was assessed by ECG. EKG was Normal. Medications Prior to Procedure: ASA, Beta Agatha and Statin. Indications for Diagnostic Cath: The priority of the diagnostic procedure was Urgent. The indicationfor the labor and delivery registered nurse visit is ACS less than or equal [...] EDT) Troponin-T <0.01 0.00 - 0.00 ng/mL [facility] Comment: The 99th percentile for Troponin T is less than 0.01 ng/mL, any detectable cTnT concentration using this assay should be considered elevated. According to the third universal definition of myocardial infarction the following criteria with a clinical presentation consistent with acute myocardial ischemia meets the diagnosis for a myocardial infarction (MS). Detection of a rise and/or fall of cTnT, with at least one value greater than the 99th percentile (> or = 0.01) and with at least one of the following ?? Symptoms of ischemia ?? New or presumed new significant GV-tocbsaq-N wave (ST-T) changes or new left bundle [...] additional sample may be indicated. Reference: Third Mullens Definition of Myocardial Infarction. Journal of the [place] College of [employer]iology 2012;60:1581-98 Blood specimen (specimen) 03/14/2019 8:53 AM EDT 03/14/2019 9:06 AM EDT Narrative Resulting Agency Comment Spec In Lab Wale Mckeon MD CHEMISTRY ORDERABLES [facility] [place] [place] [address] * (ABNORMAL) Differential, Automated (03/14/2019 8:53 AM EDT) Neutrophil % 33.7 % [facility] Neutrophil Absolute 2.11 1.70 - 6.10 x10(3)/ L [facility] Lymph % 52.4 % [facility] Lymphocytes Abs 3.3(H) 0.9 - 3.2 x10(3)/[facility] LABORATORY Monocyte % 7.6 % [facility] Monocyte Abs 0.5 0.3 - 0.9 x10(3)/ L [facility] Eos % 4.9 % [facility] Eosinophils Abs 0.3 0.0 - 0.4 x10(3)/[facility] LABORATORY Basophil % 1.1 % [facility] Baso Absolute 0.1 0.0 - 0.1 x10(3)/ L [facility] Immature Gran % 0.30 % [facility] Comment: Immature granulocytes(IG's)percentage and absolute count will include metamyelocytes, myelocytes, and promyelocytes. Blood smears from CBCs yielding IG's will be scanned manually for concordance. If this scan disagrees with the automated IG or if promyelocytes are noted, a manual differential will be performed. Immature Gran Absolute 0.02 0.00 - 0.04 x10(3)/mc L [facility] Blood specimen (specimen) 03/14/2019 8:53 AM EDT 03/14/2019 9:06 AM EDT Narrative Resulting Agency Comment Spec In Lab Ed Simpson MD HEMATOLOGY ORDERABLE S [facility] [place] [address] * Hemogram (03/14/2019 8:53 AM EDT) White Blood Cell 6.3 4.0 - 9.5 x10(3)/[facility] LABORATORY Red Blood Cell 5.11 4.58 - 5.54 x10(6)/[facility] LABORATORY Hemoglobin 14.9 13.7 - 16.5 gm/dL [facility] Hematocrit 44.2 40.5 - 48.5 % [facility] Mean Cell Volume 86.5 82.9 - 93.1 fL [facility] Mean Cell Hemoglobin 29.2 27.5 - 32.1 pg [facility] Mean Cell Hemoglobin Concentration 33.7 32.0 - 35.7 gm/dL [facility] Platelet 156 145 - 357 x10(3)/[facility] LABORATORY RDW Standard Deviation 40.3 36.0 - 45.0 [facility] LABORATORY RDW coefficient of variation 12.6 11.4 - 13.8 % [facility] Mean Platelet Volume 10.7 7.6 - 12.9 [facility] LABORATORY NRBC% auto 0.0 % [facility] NRBC Absolute 0.000 0.000 - 0.000 x10(3)/[facility] LABORATORY Blood specimen (specimen) 03/14/2019 8:53 AM EDT 03/14/2019 9:06 AM EDT Narrative Resulting Agency Comment Spec In Lab Ed Simpson MD HEMATOLOGY ORDERABLE S [facility] [place] [address] * Heparin (unfractionated) Level (03/14/2019 8:53 AM EDT) Pathologist [facility] UF Heparin 0.37 IU/mL [facility] Comment: Guidelines for therapeutic [...] MD HEMATOLOGY ORDERABLE S Performing Organization Address [facility]/State/[facility] Co de Phone Number [facility] [place] [address] * ECHO COMPLETE (03/14/2019 8:37 AM EDT) [facility] EF 63 HEARTLAB SYSTEM Anatomical Region Laterality Modality Other 03/14/2019 Narrative 03/14/2019 8:45 AM EDT Procedure: ?Transthoracic Echocardiogram Patient: ?LAQUITA DOHERTY Kiesha ? (Age): 1965(53y) Med Rec#: ? [id number] ?Sex: ?M ? Site Loc: ? [facility] ?Ht / Wt: ??177(cm)/101(kg) Pt. Loc: ?Adult Floor ? BSA: ?2.18 Study Date: ?? 03/14/2019 ?Pt. Type: Inpatient Tape: ? Referring: Ed Simpson Reading: Christos Buchanan ([id number]) Filling Separator: Yessi Webb [facility] Diagnosis: *Unstable angina (I20.0) BP: ? 104/58 [...] E-wave Vmax ?0.6 ?m/sec ? MV deceleration [id number] ?msec ? MV A-wave Vmax ?0.4 ?m/sec [...] ? Mid-Inferior ?Normal ? Mid-Inferoseptal ?Normal ? [place]-Septal ? Normal ? [place]-Anterior ? Normal ? [place]-Lateral ?Normal ? [place]-Inferior ? Normal ? [place]-Tip ?Normal ? This report has been electronically signed by: Christos Buchanan M.D. ? 03/14/2019 08:45:08 Images reviewed and interpretation verified [facility] Cardiac Ultrasound Laboratory Procedure Note Christos Buchanan MD - 03/14/2019 Procedure: Transthoracic Echocardiogram Patient: LAQUITA Pop DOB(Age): 1965(53y) Med Rec#: [id number] Sex: M Site Loc: [facility] Ht / Wt: 177(cm)/101(kg) Pt. Loc: Adult Floor BSA: 2.18 Study Date: 03/14/2019 Pt. Type: Inpatient Tape: Referring: Ed Simpson Reading: Christos Buchanan ([id number]) Filling Separator: Yessi Webb [facility] Diagnosis: *Unstable angina (I20.0) BP: 104/58 SUMMARY: [...] MV E-wave Vmax 0.6 m/sec MV deceleration [id number] msec MV A-wave Vmax 0.4 m/sec MV [...] Normal Mid-Posterolateral Normal Mid-Inferior Normal Mid-Inferoseptal Normal [place]-Septal Normal [place]-Anterior Normal [place]-Lateral Normal [place]-Inferior Normal [place]-Tip Normal This report has been electronically signed by: Christos Buchanan M.D. 03/14/2019 08:45:08 Images reviewed and interpretation verified [facility] Cardiac Ultrasound Laboratory Ed Simpson MD [...] CARE TEST O RDERABLES Performing Organization Address [facility] Co de Phone Number [facility] [place] [place] [address] * (ABNORMAL) Chloride (03/14/2019 3:28 AM EDT) Chloride 108(H) 98 - 107 mmol/L [facility] Blood specimen (specimen) 03/14/2019 3:28 AM EDT 03/14/2019 3:32 AM EDT Narrative Resulting Agency Comment Spec In Lab Wale Mckeon MD CHEMISTRY ORDERABLES Performing Organization Address [facility] Co de Phone Number [facility] [place] [place] [address] * Troponin (03/14/2019 3:28 AM EDT) Troponin-T <0.01 0.00 - 0.00 ng/mL [facility] Comment: The 99th percentile for Troponin T is less than 0.01 ng/mL, any detectable cTnT concentration using this assay should be considered elevated. According to the third universal definition of myocardial infarction the following criteria with a clinical presentation consistent with acute myocardial ischemia meets the diagnosis for a myocardial infarction (MS). Detection of a rise and/or fall of cTnT, with at least one value greater than the 99th percentile (> or = 0.01) and with at least one of the following ?? Symptoms of ischemia ?? New or presumed new significant QC-abdaqre-H wave (ST-T) changes or new left bundle [...] additional sample may be indicated. Reference: Third Mullens Definition of Myocardial Infarction. Journal of the [place] College [employer]iology 2012;60:1581-98 Blood specimen (specimen) 03/14/2019 3:28 AM EDT 03/14/2019 3:32 AM EDT Narrative Resulting Agency Comment Spec In Lab Wale Mckeon MD CHEMISTRY ORDERABLES Performing Organization Address [facility] Co de Phone Number [facility] [place] [place] [address] * Sodium (03/14/2019 3:28 AM EDT) Sodium 140 135 - 145 mmol/L [facility] Blood specimen (specimen) 03/14/2019 3:28 AM EDT 03/14/2019 3:32 AM EDT Narrative Resulting Agency Comment Spec In Lab Wale Mckeon MD CHEMISTRY ORDERABLES Performing Organization Address [facility] Phone Number [facility] [place] [place] [address] * Potassium (03/14/2019 3:28 AM EDT) Potassium 3.7 3.5 - 5.0 mmol/L [facility] [...] Mckeon MD CHEMISTRY ORDERABLES Performing Organization Address [facility] Co de Phone Number [facility] [place] [place] [address] * Heparin (unfractionated) Level (03/14/2019 2:46 AM EDT) UF Heparin 0.57 IU/mL [facility] Comment: Guidelines for therapeutic [...] MD HEMATOLOGY ORDERABLE S Performing Organization Address City/State/[facility] Co de Phone Number [facility] [place] [address] * (ABNORMAL) Differential, Automated (03/14/2019 1:50 AM EDT) Neutrophil % 38.9 % [facility] Neutrophil Absolute 3.10 1.70 - 6.10 x10(3)/mc L [facility] Lymph % 49.6 % [facility] Lymphocytes Abs 4.0(H) 0.9 - 3.2 x10(3)/mc L [facility] Monocyte % 6.3 % [facility] Monocyte Abs 0.5 0.3 - 0.9 x10(3)/mc L [facility] Eos % 4.1 % [facility] Eosinophils Abs 0.3 0.0 - 0.4 x10(3)/mc L [facility] Basophil % 0.8 % [facility] Baso Absolute 0.1 0.0 - 0.1 x10(3)/mc L [facility] Immature Gran % 0.30 % [facility] Comment: Immature granulocytes(IG's)percentage and absolute count will include metamyelocytes, myelocytes, and promyelocytes. Blood smears from CBCs yielding IG's will be scanned manually for concordance. If this scan disagrees with the automated IG or if promyelocytes are noted, a manual differential will be performed. Immature Gran Absolute 0.02 0.00 - 0.04 x10(3)/mc L [facility] Blood specimen (specimen) 03/14/2019 1:50 AM EDT 03/14/2019 2:04 AM EDT Narrative Resulting Agency Comment Spec In Lab Ed Simpson MD HEMATOLOGY ORDERABLE S Performing Organization Address City/State/[facility] Co de Phone Number [facility] [place] [address] * Hemogram (03/14/2019 1:50 AM EDT) White Blood Cell 8.0 4.0 - 9.5 x10(3)/[facility] LABORATORY Red Blood Cell 4.98 4.58 - 5.54 x10(6)/[facility] LABORATORY Hemoglobin 15.0 13.7 - 16.5 gm/dL [facility] Hematocrit 42.4 40.5 - 48.5 % [facility] Mean Cell Volume 85.1 82.9 - 93.1 fL [facility] Mean Cell Hemoglobin 30.1 27.5 - 32.1 pg [facility] Mean Cell Hemoglobin Concentration 35.4 32.0 - 35.7 gm/dL [facility] Platelet 192 145 - 357 x10(3)/[facility] LABORATORY RDW Standard Deviation 39.9 36.0 - 45.0 [facility] LABORATORY RDW coefficient of variation 12.9 11.4 - 13.8 % [facility] Mean Platelet Volume 11.7 7.6 - 12.9 fL [facility] NRBC% auto 0.0 % [facility] NRBC Absolute 0.000 0.000 - 0.000 x10(3)/mcL [facility] Blood specimen (specimen) 03/14/2019 1:50 AM EDT 03/14/2019 2:04 AM EDT Narrative Resulting Agency Comment Spec In Lab Ed Simpson MD HEMATOLOGY ORDERABLE S Performing Organization Address [facility]/ZIP Co de Phone Number [facility] [place] [place] [address] * pro-Brain Natriuretic Peptide (03/14/2019 1:50 AM EDT) NT-proBNP 12 <=125 pg/mL [facility] Blood specimen (specimen) 03/14/2019 1:50 AM EDT 03/14/2019 2:04 AM EDT Narrative Resulting Agency Comment Spec In Lab Ed Simpson MD CHEMISTRY ORDERABLES Performing Organization Address [facility] Co de Phone Number [facility] [place] [address] * Magnesium (03/14/2019 1:50 AM EDT) Pathologist [facility] Magnesium 0.81 0.69 - 1.07 mmol/L [facility] Blood specimen (specimen) 03/14/2019 1:50 AM EDT 03/14/2019 2:04 AM EDT Narrative Resulting Agency Comment Spec In Lab Ed Simpson MD CHEMISTRY ORDERABLES Performing Organization Address [facility] Co de Phone Number [facility] [place] [address] * (ABNORMAL) BMP w/fasting Glucose (03/14/2019 1:50 AM EDT) Glucose Fasting 110(H) 65 - 99 mg/dL [facility] [...] of Diabetes Mellitus, Position Statement from the [place] [employer]. ??Diabetes Care, Volume 33, Supplement 1, Aug 2009 Blood Urea Nitrogen 10 10 - 20 mg/dL [facility] Creatinine 1.00 0.80 - 1.50 mg/dL [facility] Sodium Not Perf 135 - 145 [facility] Potassium Not Perf 3.5 - 5.0 [facility] Comment: Called by: [facility], Read back by: Keeley Airas, Date/Time:03/14/19 03:03. Please note: ??Patients with WBC >100,000 may have falsely elevated Potassium levels. ??For accurate Potassium quantification in these patients send serum separator tube (gold top) for subsequent determinations. ??Contact the Clinical Chemistry Laboratory if there are any questions. Chloride Not Perf 98 - 107 [facility] Carbon Dioxide 22 22 - 31 mmol/L [facility] Anion Gap Unable to Calculate 5 - 15 mmol/L [facility] Calcium 8.5 8.5 - 10.5 mg/dL [facility] Est Glomerular Filtration Rate 87 >=60 mL/min/1 .73 m?? [facility] Comment: The eGFR was calculated using the CKD-EPI equation. As with all creatinine based estimates of kidney function, eGFR values calculated with the CKD-EPI equation are not accurate in patients with acute kidney failure, extremes of body mass or the acutely ill. [email or web address] eGFR 101 >=60 mL/min/1 .73 m?? [facility] Comment: The eGFR was calculated using the CKD-EPI equation. As with all creatinine based estimates of kidney function, eGFR values calculated with the CKD-EPI equation are not accurate in patients with acute kidney failure, extremes of body mass or the acutely ill. [email or web address] Blood specimen (specimen) 03/14/2019 1:50 AM EDT 03/14/2019 2:04 AM EDT Narrative Resulting Agency Comment Spec In Lab Ed Simpson MD CHEMISTRY ORDERABLES Performing Organization Address [facility] Co de Phone Number [facility] [place] [address] * EKG 12 Lead (03/14/2019 1:06 AM EDT) Ventricular rate 63 BPM MUSE SYSTEM Atrial Rate 63 BPM MUSE SYSTEM P-R Interval 146 ms MUSE SYSTEM QRS Duration 84 ms MUSE SYSTEM Q-T Interval 384 ms MUSE SYSTEM QTC Calculated (Bezet) 392 ms MUSE SYSTEM Calculated P [place] 28 degrees MUSE SYSTEM Calculated R [place] 21 degrees MUSE SYSTEM Calculated T [place] 18 degrees MUSE SYSTEM INTERPRETATION Normal sinus rhythm Normal ECG When compared with ECG of 13-SEP-2017 07:49, No significant change was found Confirmed by MD NAZANIN, DEISY ([id number]) on 03/14/2019 9:49:11 AM MUSE SYSTEM 03/14/2019 1:06 AM EDT 03/14/2019 9:49 AM EDT Ed Simpson MD ECG ORDERABLES Performing Organization Address [facility] Co de Phone Number MUSE SYSTEM documented [...] RN)1119 (Not Given - Provider: Jacqueline Montes eD Oca RN - Reason: Order parameters not [...] - Reason: Transfer to a Procedural area)1133 ([facility] Unhold - Provider: Admin Adt) glucose (GLUTOSE) [...] - Reason: Transfer to a Procedural area)1133 ([facility] Unhold - Provider: Admin Adt) iohexol (OMNIPAQUE) [...] - Reason: Transfer to a Procedural area)1133 ([facility] Unhold - Provider: Admin Adt) midazolam [...] - Reason: Transfer to a Procedural area)1133 ([facility] Unhold - Provider: Admin Adt) nitroGLYcerin [...] 0255 (Given - Provider: Keeley Arias, RN)1003 ([facility] Hold - Provider: Admin Adt - Reason: Transfer to a Procedural area)1133 ([facility] Unhold - Provider: Admin Adt)1952 (Given - [...] provided on this medication record., Routine 1003 ([facility] Hold - Provider: Admin Adt - Reason: Transfer to a Procedural area)1133 ([facility] Unhold - Provider: Admin Adt) sodium chloride 0.9 % (flush) flush 5-20 mL 5-20 mL, Intravenous, EVERY 1 MIN PRN, Starting on Thu03/14/19 at 0219, Until Thu03/16/19 at 1756, flush, Flush pertains to all indwelling lines. Flush per protocol found in the job aid using the link provided on this medication record., Routine 1003 ([facility] Hold - Provider: Admin Adt - Reason: Transfer to a Procedural area)1133 ([facility] Unhold - Provider: Admin Adt) verapamil (ISOPTIN) [...] Routine documented in this encounter Care Teams Office Machines Wirer Relationship Specialty Start Date End Date Coni Lim MD [address] [place] [address] PCP - General 07/16/10 documented as of this encounter
--- OUTSIDE RECORDS SUMMARY | 2024-04-30 18:20 | XMS_ITS | Encounter Summary ---
Author Organization [facility] [place] [address] Care Team Providers Care Keyboard Instrument Tuner Name Role Phone Coni Lim MD Primary Care Provider Encounter Details Date Type Department Care Team (Late st Contact Info) Description 03/13/2019 External Results [facility] Patient Placement [facility] [place] [address] Social History Tobacco Use Types Packs/Day Years [...] on filedocumented in this encounter Care Teams Keyboard Instrument Tuner Relationship Specialty Start Date End Date Coni Lim MD [address] [place] [address] PCP - General 07/16/10 documented as of this encounter
--- OUTSIDE RECORDS SUMMARY | 2024-04-30 18:20 | XMS_ITS | Encounter Summary ---
[place] [address] Care Team Providers Care Knife Glazer Name Role Phone Coni Lim MD Primary Care Provider [phone] Encounter Details Date Type Department Care Team (Late st Contact Info) Description 09/13/2018 11:00 AM EST Interpretation Only Cardiology at [address] [phone] Rafael Nieto Jr., MD [address] [place] [address] Chest pain, unspecified type Social History Tobacco [...] type documented in this encounter Care Teams Knife Glazer Relationship Specialty Start Date End Date Coni Lim MD [address] [place] [address] PCP - General 07/16/10 documented as of this encounter
--- OUTSIDE RECORDS SUMMARY | 2024-04-30 18:21 | XMS_ITS | Encounter Summary ---
Author Organization [place] [address] Care Team Providers Care Grain I Farmworker Name Role Phone Coni Lim MD Primary Care Provider [phone] Encounter Details Date Type Department Care Team (Late st Contact Info) Description 08/25/2017 Telephone Cardiology at [address] [phone] Zarina Jiang Social History Tobacco Use Types [...] said that his stents were replaced in [facility] and he didn't feel he needed to be in the trial anymore. I asked the patient to complete the survey based on his chest pain and he refused. He withdrew from the study. documented in this encounter Plan of Treatment Not on file documented as of this encounter Visit Diagnoses Not on filedocumented in this encounter Care Teams Grain I Farmworker Relationship Specialty Start Date End Date Coni Lim MD [address] [place] [address] PCP - General 07/16/10 documented as of this encounter
--- OUTSIDE RECORDS SUMMARY | 2024-04-30 18:21 | XMS_ITS | Encounter Summary ---
Author Organization [facility] Address [facility] [place] [address] Care Team Providers Care Finance Executive Name Role Phone Coni Lim MD Primary Care Provider [phone] Reason for Visit * Auth/Cert Specialty Diagnoses / Procedures Referred By Ruby garvin Referred To Contact Diagnoses Unstable angina [place] Referral ID Status Reason Start Date Expiration Date Visits Re quested Visits Authorized [id number] 1 1 Encounter Details Date Type Department Care Team (Latest Contact Info) Description 11/21/2016 7:58 PM EDT - 11/25/2016 11:04 AM EDT Hospital Encounter Inter[place] [address] Valentín Oreilly MD [facility] [place] [address] Roque Sanches MD [facility] [place] [address] Unstable angina Discharge Disposition: Home Social History [...] Romeo Coelho Patient Age: 51 y.o. Language: Slovak Race: White Ethnicity: Not nor Admit date: 11/21/2016 Discharge date and time: 11/25/2016 Attending Physician: Roque Sanches MD Discharge Physician: Roque Sanches MD Follow-up Recommendations for Providers: 1. Admitted with unstable angina. Drug-eluting stent RCA. 2. Requires dual antiplatelet therapy for 1 year 3. Smoking cessation Inpatient Provider Contact Information: Keisha Rose APRN [facility] Provider # [id number] Discharge Diagnoses (Hospital Problems) and Secondary Diagnoses (Chronic Problems): Active Hospital Problems Diagnosis ??? Unstable angina ??? CAD (coronary artery disease) -Coronary Angio 07/29/2013: 65% (FFR 0.74) mid LAD lesion s/p PCI with 3.5 X 18 mm JACINDA - [facility] 2009 post abnormal nuc stress [...] stent restenosis addressed with LAD stentangioplasty at [facility] in January 2014), DM2, HTN, dyslipidemia, continued tobacco use, and obesity was transferred from [facility] to [facility] for further evaluation of unstable angina. [...] PF, Split 07/30/2013 ??? Influenza Vaccine (Novel) [id number], Injectable 05/24/2009 ??? Influenza Vaccine w/Preservative, Split [...] contact one of the cardiology nurses at [facility] during normal business hours(Thursday through Thursday, 8 AM to 5 PM) at . During nonbusiness hours (evenings, nights, weekends, holidays), you may contact the bonding machine setter patient navigator at . Return to work: -unemployed Driving: -No driving for 48 hours after catheterization. Follow up Appointments: ?? PCP: Coni Lim MD will see you on November 28, 2016 at 2:45 PM at [facility]. You may contact her office at [phone] with any questions or concerns ?? Cardiology: Please see Dr. Ling in [place], [place] on December 16 at 11:00 AM. His office may be contacted at with any questions or concerns. Home oxygen therapy: N/A Arrangements for VNA/home care: none Discharge References/Attachments None Keisha Rose APRN Nurse Practitioner-Department of Cardiology [email or web address] Pager [phone] Phone number: [phone] Fax number [phone] I have discussed this patient with attending [...] contact one of the cardiology nurses at [facility] during normal business hours(Thursday through Thursday, 8 AM to 5 PM) at . During nonbusiness hours (evenings, nights, weekends, holidays), you may contact the bonding machine setter patient navigator at . Return to work: -unemployed Driving: -No driving for 48 hours after catheterization. Follow up Appointments: ?? PCP: Coni Lim MD will see you on November 28, 2016 at 2:45 PM at [facility]. You may contact her office at [phone] with any questions or concerns ?? Cardiology: Please see Dr. Ling in [place], [place] on December 16 at 11:00 AM. [...] Nicotine Replacement Therapy , November 23, 2012: https://www.federalregister.gov/articles//2013-27056/modificati ojl-nj-nonazjbu-iy-ahpgbvig-nwuprfkcimt-fpugxqr-hbnbtbti-ssx-mvuc-kkg-vvukbyk-hu man-use Nicotine lozenge instructions: Use the 4 [...] Nicotine Replacement Therapy , November 23, 2012: https://www.federalregister.gov/articles//2013-20089/modificati bng-ur-eqnxrbvv-yj-mcjwzwkk-fulxmmognwi-ncvrohp-ebmfpfzz-jcz-hibn-agi-bnzsssd-hu man-use Remember to cut down on regular coffee intake to no more than 2-3 eight ounce cups a day. Substitute decaf or herbal tea, water or any other non caffeine drink for regular coffee to avoid rising caffeine levels when you don't smoke. You have been referred to the [place] Quitline and should expect to receive a [...] Progress Note Patient Name: Romeo Coelho Service: CULTURAL ANTHROPOLOGY PROFESSOR / PA Responsible Attending: Roque Sanches MD Reason for continued hospitalization: -discharge -smoking cessation consult Active Problems: Active Hospital Problems Diagnosis ??? Unstable angina ??? CAD (coronary artery disease) -Coronary Angio 07/29/2013: 65% (FFR 0.74) mid LAD lesion s/p PCI with 3.5 X 18 mm JACINDA - [facility] 2009 post abnormal nuc stress [...] priority for the procedure was Urgent. The [facility] indication for the procedure was PCI for [...] restenosis addressed with LAD stent angioplasty at [facility] in January 2014, DM2, HTN, dyslipidemia, continued tobacco use, and obesity transferred to [facility] for further evaluation of unstable angina. Underwent Cardiac catheterization to day (11/24/16)-CI of RCA Comfortable overnight Smoking cessation consult Plan: 1. Unstable angina LAD and LCx disease defined at prior cardiac catheterizations (at [facility] and [facility]) Describes crescendo anginal symptoms which [...] Progress Note Patient Name: Romeo Coelho Service: CULTURAL ANTHROPOLOGY PROFESSOR / PA Responsible Attending: Roque Sanches MD Reason for continued hospitalization: Evaluation and management of unstable angina; cardiac cath anticipated today (11/24/16) Active Problems: Active Hospital Problems Diagnosis ??? Unstable angina ??? CAD (coronary artery disease) -Coronary Angio 07/29/2013: 65% (FFR 0.74) mid LAD lesion s/p PCI with 3.5 X 18 mm JACINDA - [facility] 2009 post abnormal nuc stress [...] restenosis addressed with LAD stent angioplasty at [facility] in January 2014, DM2, HTN, dyslipidemia, continued tobacco use, and obesity transferred to [facility] for further evaluation of unstable angina. Cardiac catheterization today ( 7). Plan: 1. Unstable angina LAD and LCx disease defined at prior cardiac catheterizations (at [facility] and [facility]) Describes crescendo anginal symptoms which [...] Progress Note Patient Name: Romeo Coelho Service: CULTURAL ANTHROPOLOGY PROFESSOR / PA Responsible Attending: Roque Sanches MD Reason for continued hospitalization: Evaluation and management of unstable angina Active Problems: Active Hospital Problems Diagnosis ??? Unstable angina ??? CAD (coronary artery disease) -Coronary Angio 07/29/2013: 65% (FFR 0.74) mid LAD lesion s/p PCI with 3.5 X 18 mm JACINDA - [facility] 2009 post abnormal nuc stress [...] restenosis addressed with LAD stent angioplasty at [facility] in January 2014, DM2, HTN, dyslipidemia, continued tobacco use, and obesity transferred to [facility] for further evaluation of unstable angina. Cardiac catheterization anticipated tomorrow AM (11/24/16). Plan: 1. Unstable angina LAD and LCx disease defined at prior cardiac catheterizations (at [facility] and [facility]) Describes crescendo anginal symptoms which [...] Progress Note Patient Name: Romeo Coelho Service: CULTURAL ANTHROPOLOGY PROFESSOR / PA Responsible Attending: Roque Sanches MD Reason for continued hospitalization: Evaluation and management of unstable angina Active Problems: Active Hospital Problems Diagnosis ??? Unstable angina ??? CAD (coronary artery disease) -Coronary Angio 07/29/2013: 65% (FFR 0.74) mid LAD lesion s/p PCI with 3.5 X 18 mm JACINDA - [facility] 2009 post abnormal nuc stress [...] restenosis addressed with LAD stent angioplasty at [facility] in January 2014, DM2, HTN, dyslipidemia, continued tobacco use, and obesity transferred to [facility] for further evaluation of unstable angina. Cardiac catheterization anticipated soon. Plan: 1. Unstable angina LAD and LCx disease defined at prior cardiac catheterizations (at [facility] and [facility]) Describes crescendo anginal symptoms which [...] a 51 yr M ( Transferred from [place]) PMH of CAD - multiple PCIs in past, latest cath in January 2014 ( at [facility] ) JACINDA x2 to LAD, prior [...] in ED. Symptoms reminiscent of his prior [place] / Unstable angina. Compliant with meds . [...] of Onset ??? Myocardial Infarction Father 46 [place], CABG ??? Diabetes Mother ??? Hypertension Mother [...] son (age 18 months), daughter 11 in [place], [place]. Takes care of his mother who has dementia and he takes her to dialysis. is disabled. Has grown daughter who is 29 years old. 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 Similar in character to prior [place] / UA; Nitrate responsive. ECG : nsr [...] in the outpatient cardiac rehabilitation program at [place] was discussed. Patient agrees to a referral [...] of Onset ??? Myocardial Infarction Father 46 [place], CABG ??? Diabetes Mother ??? Hypertension Mother [...] his brain. TREATMENT PLAN/RECOMMENDATIONS: [X ] Provide [facility] Tobacco Cessation Packet Discuss and prescribe [...] 8-end 1 mg PO BID Refer to [place] [employer]uit [employer] e-referral placed X Refer to [place] 802 Quits (fill out and fax enrollment [...] Follow up: with his PCP and the [place] quitline, 802QUITS Patient not ready to quit at this time. Follow up: X It is strongly recommended that the patient be discharged to home on Tobacco Treatment medication(s) as recommended above and follow up with either PCP and/or Quit line [id number]. X These recommendations have been discussed with the patient's primary team. 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 I've been disabled for five years due to Fibromyalgia and Arthritis. Home Environment: Lives with his , Dasia in [place], [place]. Social & Family Supports/Community Resources: Dasia Coelho (Spouse) [address] [place] [address] (H) [phone] (M) Behavioral Health History: Per pt report, [...] Coverage: Yes, has Silver Script. Preferred Pharmacy: [id number] - [place], [place] - [address] [place] [address] ? [address] [facility] [address] ? Not a 24 hour pharmacy; exact hours not known Other: None Primary Care Provider: Coni Lim MD [phone] Patient/Caregiver Goals of Treatment: To return home and to his normal activities. Potential Needs for Transition of Care: Rehab/SNF: Pt has never been a pt in a rehab setting. Home Health: [facility] in the past (after right knee surgery). DME: Cane at home (doesn't consistently use it). Dialysis: N/A Community Resources: None Transportation: I may need RCT transportation. My car is in [facility] parking lot. I havethe only set of keys. Other: None Anticipated Barriers to Discharge/Special Considerations: No barriers noted at this time. Plan: A member of the Care Management team will continue to monitor progress, follow for continuity of care and assist with transition of care planning. SON MARLEY, RN Pager: [phone] * Plan of Care - Christy Medina [...] Radiograph today, Echo and Cardiac Enzymes Pending Teacher Theater Arts ? Thursday more likely Thursday (pt. Informed) [...] online chart. Telemetry Report: [id number]: Intermittent [place], [place] 0.17, QRS 0.08, RR 0.75, QT 0.35, [...] ability. Romeo Weineroney was offered copies of [facility] publications; Are You a Hospital Inpatient or Outpatient?and Medicare Rights and Protections. Notice has been signed along with date and time, a copy of notice made and given to patient/title insurance sales representative. Original notice to be scanned [...] Procedure Name Priority Date/Time Associated Diagnosis Comments COKE PRODUCTION HEATER SCAN 11/26/2016 12:00 AM EDT POCT GLUCOSE [...] Routine 11/22/2016 7:45 PM EDT CARDIAC ENZYMES ([facility]) Routine 11/22/2016 5:11 PM EDT APTT STAT 11/22/2016 5:11 PM EDT POCT GLUCOSE Routine 11/22/2016 4:50 PM EDT ECHO COMPLETE W CONTRAST Routine 11/22/2016 12:59 PM EDT Unstable angina POCT GLUCOSE Routine 11/22/2016 12:11 PM EDT CARDIAC ENZYMES ([facility]) STAT 11/22/2016 10:06 AM EDT APTT [...] 11/23/19 17 3:58 AM EDT CARDIAC ENZYMES ([facility]P) Routine 11/22/2016 3:58 AM EDT APTT [...] in this encounter Results * SCAN DOC: COKE PRODUCTION HEATER (11/26/2016 12:00 AM EDT) Anatomical Region Laterality Modality Other Narrative 11/26/2016 12:00 AM EDT Ordered by an unspecified provider. Scanning Provider MEDIA MGR SCAN EXT O RDR/RSLT * POCT Glucose (11/25/2016 7:42 AM EDT) Glucose, POC 123 65 - 199 mg/dL [facility] Comment: Supplemental ranges: <140 mg/dL before meals <180 mg/dL all other times of the day Blood specimen (specimen) 11/25/2016 7:42 AM EDT 11/25/2016 7:42 AM EDT Roque Sanches MD POINT OF CARE TEST O RDERABLES Performing Organization Address [facility] Co de Phone Number [facility] [place] [address] * EKG 12 Lead (11/25/2016 7:23 AM EDT) Ventricular rate 70 BPM MUSE SYSTEM Atrial Rate 70 BPM MUSE SYSTEM P-R Interval 140 ms MUSE SYSTEM QRS Duration 88 ms MUSE SYSTEM Q-T Interval 388 ms MUSE SYSTEM QTC Calculated (Bezet) 419 ms MUSE SYSTEM Calculated P [place] 3 degrees MUSE SYSTEM Calculated R [place] 19 degrees MUSE SYSTEM Calculated T [place] 42 degrees MUSE SYSTEM INTERPRETATION Normal sinus rhythm Normal ECG When compared with ECG of 24-NOV-2016 19:05, (unconfirmed) No significant change was found I personally reviewed the tracing and edited the fellows interpretation Confirmed by fellow MD Kalin, Nessa Lee ([id number]) on 11/25/2016 10:44:22 AM Confirmed by MD Meli, Tigre ([id number]) on 11/25/2016 5:24:33 PM MUSE SYSTEM 11/25/2016 7:23 AM EDT 11/25/2016 5:24 PM EDT Roque Sanches MD ECG ORDERABLES Performing Organization Address [facility] Co de Phone Number MUSE SYSTEM * Cardiac Enzymes (11/25/2016 4:52 AM EDT) Troponin-T <0.03 <=0.03 ng/mL [facility] Comment: 0.03 ng/mL: Represents the 99th percentile upper reference limit for normals. >0.03 ng/mL: Elevated cardiac troponin T level indicative of myocardial damage. Diagnosis of acute, evolving or recent [place] requires a typical rise and gradual fall [...] consensus document of the Joint Society of Cardiology/[place] College of Cardiology Committee for the redefinition of myocardial infarction. ??Journal of the [place] College of Cardiology 2000; 36: 959-969] Creatine Kinase 139 0 - 200 unit/L [facility] Comment:result rechecked-sb Blood specimen (specimen) Venous Draw / Unknown 11/25/2016 4:52 AM EDT 11/25/2016 5:41 AM EDT Narrative Resulting Agency Comment Spec In Lab Roque Sanches MD CHEMISTRY ORDERABLES [facility] [place] [address] * Differential, Automated (11/25/2016 4:52 AM EDT) Neutrophil % 61.6 % [facility] Neutrophil Absolute 5.56 1.70 - 6.10 x10(3)/[facility] Lymph % 26.8 % [facility] Lymphocytes Abs 2.4 0.9 - 3.2 x10(3)/[facility] Monocyte % 6.3 % [facility] Monocyte Abs 0.6 0.3 - 0.9 x10(3)/[facility] Eos % 4.1 % [facility] Eosinophils Abs 0.4 0.0 - 0.4 x10(3)/[facility] Basophil % 0.8 % [facility] Baso Absolute 0.1 0.0 - 0.1 x10(3)/[facility] Immature Gran % 0.40 % [facility] Comment: Immature granulocytes(IG's)percentage and absolute count will include metamyelocytes, myelocytes, and promyelocytes. Blood smears from CBCs yielding IG's will be scanned manually for concordance. If this scan disagrees with the automated IG or if promyelocytes are noted, a manual differential will be performed. Immature Gran Absolute 0.04 0.00 - 0.04 x10(3)/[facility] Blood specimen (specimen) 11/25/2016 4:52 AM EDT 11/25/2016 5:37 AM EDT Narrative Resulting Agency Comment Spec In Lab Roque Sanches MD HEMATOLOGY ORDERABLE S [facility] [place] [address] * (ABNORMAL) Hemogram (11/25/2016 4:52 AM EDT) White Blood Cell 9.0 4.0 - 9.5 x10(3)/[facility] Red Blood Cell 5.04 4.58 - 5.54 x10(6)/[facility] Hemoglobin 14.5 13.7 - 16.5 gm/dL [facility] Hematocrit 44.2 40.5 - 48.5 % [facility] Mean Cell Volume 87.7 82.9 - 93.1 [facility] Mean Cell Hemoglobin 28.8 27.5 - 32.[address] [facility] Mean Cell Hemoglobin Concentration 32.8 32.0 - 35.7 gm/dL [facility] Platelet 214 145 - 357 x10(3)/[facility] RDW Standard Deviation 45.1(H) 36.0 - 45.0 [facility] RDW coefficient of variation 14.0(H) 11.4 - 13.8 % [facility] Mean Platelet Volume 11.1 7.6 - 12.9 [facility] NRBC% auto 0.0 % [facility] NRBC Absolute 0.000 0.000 - 0.000 x10(3)/[facility] Blood specimen (specimen) 11/25/2016 4:52 AM EDT 11/25/2016 5:37 AM EDT Narrative Resulting Agency Comment Spec In Lab Roque Sanches MD HEMATOLOGY ORDERABLE S [facility] [place] [address] * (ABNORMAL) BMP w/fasting Glucose (11/25/2016 4:52 AM EDT) Glucose Fasting 113(H) 65 - 99 mg/dL [facility] Comment: ?Fasting* Glucose Interpretive Criteria [...] of Diabetes Mellitus, Position Statement from the [place] Diabetes Association. ??Diabetes Care, Volume 33, Supplement 1, Aug 2009 Blood Urea Nitrogen 10 10 - 20 mg/dL [facility] Creatinine 0.87 0.80 - 1.50 mg/dL [facility] Comment: Please note that the pediatric reference intervals supplied above were not validated at [facility]. Results from pediatric patients should be interpreted in conjunction to the patient's age, height and muscle mass. Sodium 142 135 - 145 mmol/L [facility] Potassium 3.9 3.5 - 5.0 mmol/L [facility] Comment: Please note: ??Patients with WBC >100,000 may have falsely elevated Potassium levels. ??For accurate Potassium quantification in these patients send serum separator tube (gold top) for subsequent determinations. ??Contact the Clinical Chemistry Laboratory if there are any questions. Chloride 108(H) 98 - 107 mmol/L [facility] Carbon Dioxide 19(L) 22 - 31 mmol/L [facility] Anion Gap 15 5 - 15 mmol/L [facility] Calcium 9.5 8.5 - 10.5 mg/dL [facility] Est Glomerular Filtration Rate >60 >=60 [facility] Comment: This estimated GFR (eGFR) value [...] the following links into your internet browser. [email or web address] Blood specimen (specimen) 11/25/2016 4:52 AM EDT 11/25/2016 5:37 AM EDT Narrative Resulting Agency Comment Spec In Lab Roque Sanches MD CHEMISTRY ORDERABLES Performing Organization Address City/[facility] Co de Phone Number [facility] [place] [address] * EKG 12 Lead (11/24/2016 7:05 PM EDT) Ventricular rate 85 BPM MUSE SYSTEM Atrial Rate 85 BPM MUSE SYSTEM P-R Interval 152 ms MUSE SYSTEM QRS Duration 86 ms MUSE SYSTEM Q-T Interval 354 ms MUSE SYSTEM QTC Calculated (Bezet) 421 ms MUSE SYSTEM Calculated P [place] 55 degrees MUSE SYSTEM Calculated R [place] 44 degrees MUSE SYSTEM Calculated T [place] 40 degrees MUSE SYSTEM INTERPRETATION Normal sinus [...] Modality Other Narrative 11/24/2016 6:23 PM EDT ?[facility] ? Cardiac Catheterization/Intervention Report ? Patient Name: Coelho, Romeo A. ? Procedure Date: 11/24/2016 ? A #: [id number] ? Primary Physician: Anton Horvath ? Case #: [id number] ? File Name: [id number] ? Catheterization Order Number: [id number] ? [facility] ? Final Report [place], [place] ? Patient Name: ? Romeo Coelho ? ID#: ?[id number] ? : ?1965 ? Procedure Date: ? [...] presented with: unstable angina (w/i 60 days). [place] ?Cardiovascular Society angina class was III. This [...] was changed as ?follows: Continue ferry terminal agent aspirin and plavix. ? Comments: ?Classic anginal [...] Procedure Note Anton Horvath MD - 11/25/2016 [facility] Cardiac Catheterization/Intervention Report Patient Name: Coelho Romeo PopNatalie Procedure Date: 11/24/2016 A #: [id number] Primary Physician: Anton Horvath Case #: [id number] File Name: [id number] Catheterization Order Number: [id number] [facility] FinalReport [place], [place] Patient Name: Romeo Coelho ID#:[id number] :1965 Procedure Date: November 24, 2016 Case [...] presented with: unstable angina (w/i 60 days). [place] Cardiovascular Society angina class was III. This [...] time was 8.0 minutes, dose area product [id number] mGYcm2 and air kerma was 1,689 mGY. [...] was changed as follows: Continue ferry terminal agent aspirin and plavix. Comments: Classic anginal symptoms [...] Glucose, POC 88 65 - 199 mg/dL [facility] Comment: Supplemental ranges: <140 mg/dL before meals <180 mg/dL all other times of the day Blood specimen (specimen) 11/24/2016 4:27 PM EDT 11/24/2016 4:27 PM EDT Roque Sanches MD POINT OF CARE TEST O RDERABLES [facility] [place] [address] * POCT Glucose (11/24/2016 11:56 AM EDT) Glucose, POC 110 65 - 199 mg/dL [facility] Comment: Supplemental ranges: <140 mg/dL before meals <180 mg/dL all other times of the day Blood specimen (specimen) 11/24/2016 11:56 AM EDT 11/24/2016 11:56 AM EDT Roque Sanches MD POINT OF CARE TEST O RDERAAIRAM Performing Organization Address [facility] Co de Phone Number [facility] [place] [id number] * POCT Glucose (11/24/2016 7:43 AM EDT) Glucose, POC 131 65 - 199 mg/dL [facility] Comment: Supplemental ranges: <140 mg/dL before meals <180 mg/dL all other times of the day Blood specimen (specimen) 11/24/2016 7:43 AM EDT 11/24/2016 7:43 AM EDT Roque Sanches MD POINT OF CARE TEST O RDERABLES Performing Organization Address [facility] Co de Phone Number [facility] [place] [address] * EKG 12 Lead (11/24/2016 7:20 AM EDT) Ventricular rate 65 BPM MUSE SYSTEM Atrial Rate 65 BPM MUSE SYSTEM P-R Interval 158 ms MUSE SYSTEM QRS Duration 90 ms MUSE SYSTEM Q-T Interval 396 ms MUSE SYSTEM QTC Calculated (Bezet) 411 ms MUSE SYSTEM Calculated P [place] 51 degrees MUSE SYSTEM Calculated R [place] 26 degrees MUSE SYSTEM Calculated T [place] 24 degrees MUSE SYSTEM INTERPRETATION Normal sinus rhythm Normal ECG When compared with ECG of 23-NOV-2016 07:16, No significant change was found I personally reviewed the tracing and edited the fellows interpretation Confirmed by fellow MD Kalin, Nessa Lee ([id number]) on 11/24/2016 8:23:27 AM Confirmed by MD Margoth, Rajni ([id number]) on 11/24/2016 6:22:34 PM MUSE SYSTEM 11/24/2016 7:20 AM EDT 11/24/2016 6:22 PM EDT Roque Sanches MD ECG ORDERABLES MUSE SYSTEM * (ABNORMAL) Differential, Automated (11/24/2016 6:20 AM EDT) Neutrophil % 54.5 % [facility] Neutrophil Absolute 4.85 1.70 - 6.10 x10(3)/[facility] Lymph % 31.5 % [facility] Lymphocytes Abs 2.8 0.9 - 3.2 x10(3)/[facility] Monocyte % 8.1 % [facility] Monocyte Abs 0.7 0.3 - 0.9 x10(3)/[facility] Eos % 4.4 % [facility] Eosinophils Abs 0.4 0.0 - 0.4 x10(3)/[facility] Basophil % 0.9 % [facility] Baso Absolute 0.1 0.0 - 0.1 x10(3)/[facility] Immature Gran % 0.60 % [facility] Comment: Immature granulocytes(IG's)percentage and absolute count will include metamyelocytes, myelocytes, and promyelocytes. Blood smears from CBCs yielding IG's will be scanned manually for concordance. If this scan disagrees with the automated IG or if promyelocytes are noted, a manual differential will be performed. Immature Gran Absolute 0.05(H) 0.00 - 0.04 x10(3)/[facility] Blood specimen (specimen) 11/24/2016 6:20 AM EDT 11/24/2016 6:34 AM EDT Narrative Resulting Agency Comment Spec In Lab Drew Pepe MD HEMATOLOGY ORDERABLE S [facility] [place] [address] * (ABNORMAL) Hemogram (11/24/2016 6:20 AM EDT) White Blood Cell 8.9 4.0 - 9.5 x10(3)/ L [facility] Red Blood Cell 4.93 4.58 - 5.54 x10(6)/ L [facility] Hemoglobin 14.7 13.7 - 16.5 gm/dL [facility] Hematocrit 43.2 40.5 - 48.5 % [facility] Mean Cell Volume 87.6 82.9 - 93.[address] [facility] Mean Cell Hemoglobin 29.8 27.5 - 32.[address] [facility] Mean Cell Hemoglobin Concentration 34.0 32.0 - 35.7 gm/dL [facility] Platelet 203 145 - 357 x10(3)/[facility] RDW Standard Deviation 44.3 36.0 - 45.0 [facility] RDW coefficient of variation 13.9(H) 11.4 - 13.8 % [facility] Mean Platelet Volume 11.0 7.6 - 12.9 [facility] NRBC% auto 0.0 % [facility] NRBC Absolute 0.000 0.000 - 0.000 x10(3)/[facility] Blood specimen (specimen) 11/24/2016 6:20 AM EDT 11/24/2016 6:34 AM EDT Narrative Resulting Agency Comment Spec In Lab Drew Pepe MD HEMATOLOGY ORDERABLE S [facility] [place] [address] * (ABNORMAL) APTT (11/24/2016 6:20 AM EDT) [facility] Signature Partial Thromboplastin Time 110(H) 25 - [address] [facility] Comment: The recommended therapeutic range for full dose, unfractionated heparin at [facility] is 80 ? 114 seconds. The use of the anti-Xa (heparin) level rather than the PTT is recommended for monitoring anticoagulation intensity in critically ill patients receiving unfractionated heparin by continuous IV infusion. Blood specimen (specimen) 11/24/2016 6:20 AM EDT 11/24/2016 6:34 AM EDT Narrative Resulting Agency Comment Spec In Lab Drew Pepe MD HEMATOLOGY ORDERABLE S Performing Organization Address City/[facility]/ZIP Co de Phone Number [facility] [place] [address] * (ABNORMAL) APTT (11/23/2016 11:27 PM EDT) Partial Thromboplastin Time 130(H) 25 - [address] [facility] Comment: The recommended therapeutic range for full dose, unfractionated heparin at [facility] is 80 ? 114 seconds. The use of the anti-Xa (heparin) level rather than the PTT is recommended for monitoring anticoagulation intensity in critically ill patients receiving unfractionated heparin by continuous IV infusion. Blood specimen (specimen) 11/23/2016 11:27 PM EDT 11/23/2016 11:30 PM EDT Narrative Resulting Agency Comment Spec In Lab Drew Pepe MD HEMATOLOGY ORDERABLE S Performing Organization Address [facility]/ZIP Co de Phone Number [facility] [place] [address] * POCT Glucose (11/23/2016 7:36 PM EDT) Glucose, POC 131 65 - 199 mg/dL [facility] Comment: Supplemental ranges: <140 mg/dL before meals <180 mg/dL all other times of the day Blood specimen (specimen) 11/23/2016 7:36 PM EDT 11/23/2016 7:36 PM EDT Roque Sanches MD POINT OF CARE TEST O RDERABLES Performing Organization Address City/[facility]/ZIP Co de Phone Number [facility] [place] [address] * POCT Glucose (11/23/2016 5:20 PM EDT) Glucose, POC 107 65 - 199 mg/dL [facility] Comment: Supplemental ranges: <140 mg/dL before meals <180 mg/dL all other times of the day Blood specimen (specimen) 11/23/2016 5:20 PM EDT 11/23/2016 5:20 PM EDT Roque Sanches MD POINT OF CARE TEST O RDERABLES Performing Organization Address [facility] Co de Phone Number [facility] [place] [address] * (ABNORMAL) APTT (11/23/2016 12:39 PM EDT) [facility] Partial Thromboplastin Time 68(H) 25 - [address] [facility] Comment: The recommended therapeutic range for full dose, unfractionated heparin at [facility] is 80 ? 114 seconds. The use of the anti-Xa (heparin) level rather than the PTT is recommended for monitoring anticoagulation intensity in critically ill patients receiving unfractionated heparin by continuous IV infusion. Blood specimen (specimen) 11/23/2016 12:39 PM EDT 11/23/2016 12:51 PM EDT Narrative Resulting Agency Comment Spec In Lab Roque Sanches MD HEMATOLOGY ORDERABLE S Performing Organization Address [facility] Co de Phone Number [facility] [place] [address] * POCT Glucose (11/23/2016 11:47 AM EDT) Glucose, POC 116 65 - 199 mg/dL [facility] Comment: Supplemental ranges: <140 mg/dL before meals <180 mg/dL all other times of the day Blood specimen (specimen) 11/23/2016 11:47 AM EDT 11/23/2016 11:47 AM EDT Roque Sanches MD POINT OF CARE TEST O RDERABLES Performing Organization Address [facility]/ZIP Co de Phone Number [facility] [place] [address] * POCT Glucose (11/23/2016 7:36 AM EDT) Glucose, POC 122 65 - 199 mg/dL [facility] Comment: Supplemental ranges: <140 mg/dL before meals <180 mg/dL all other times of the day Blood specimen (specimen) 11/23/2016 7:36 AM EDT 11/23/2016 7:36 AM EDT Roque Sanches MD POINT OF CARE TEST O RDERABLES Performing Organization Address [facility] de Phone Number [facility] [place] [address] * EKG 12 Lead (11/23/2016 7:16 AM EDT) Ventricular rate 72 BPM MUSE SYSTEM Atrial Rate 72 BPM MUSE SYSTEM P-R Interval 158 ms MUSE SYSTEM QRS Duration 90 ms MUSE SYSTEM Q-T Interval 382 ms MUSE SYSTEM QTC Calculated (Bezet) 418 ms MUSE SYSTEM Calculated P [place] 47 degrees MUSE SYSTEM Calculated R [place] 28 degrees MUSE SYSTEM Calculated T [place] 32 degrees MUSE SYSTEM INTERPRETATION Normal sinus rhythm Normal ECG When compared with ECG of 22-NOV-2016 07:12, No significant change was found Confirmed by MD ANIVAL, DEBORAH ([id number]) on 11/23/2016 1:58:05 PM MUSE SYSTEM 11/23/2016 7:16 AM EDT 11/23/2016 1:58 PM EDT Roque Sanches MD ECG ORDERABLES Performing Organization Address [facility] Co de Phone Number MUSE SYSTEM * (ABNORMAL) BMP w/fasting Glucose (11/23/2016 6:24 AM EDT) Glucose Fasting 143(H) 65 - 99 mg/dL [facility] Comment: ?Fasting* Glucose Interpretive Criteria [...] of Diabetes Mellitus, Position Statement from the [place] [employer]. ??Diabetes Care, Volume 33, Supplement 1, Aug 2009 Blood Urea Nitrogen 10 10 - 20 mg/dL [facility] Creatinine 0.98 0.80 - 1.50 mg/dL [facility] Comment: Please note that the pediatric reference intervals supplied above were not validated at [facility]. Results from pediatric patients should be interpreted in conjunction to the patient's age, height and muscle mass. Sodium 142 135 - 145 mmol/L [facility] Potassium 3.9 3.5 - 5.0 mmol/L [facility] Comment: Please note: ??Patients with WBC >100,000 may have falsely elevated Potassium levels. ??For accurate Potassium quantification in these patients send serum separator tube (gold top) for subsequent determinations. ??Contact the Clinical Chemistry Laboratory if there are any questions. Chloride 106 98 - 107 mmol/L [facility] Carbon Dioxide 20(L) 22 - 31 mmol/L [facility] Anion Gap 16(H) 5 - 15 mmol/L [facility] Calcium 9.6 8.5 - 10.5 mg/dL [facility] Est Glomerular Filtration Rate >60 >=60 [facility] Comment: This estimated GFR (eGFR) value [...] the following links into your internet browser. [email or web address] Blood specimen (specimen) 11/23/2016 6:24 AM EDT 11/23/2016 6:32 AM EDT Narrative Resulting Agency Comment Spec In Lab Roque Sanches MD CHEMISTRY ORDERABLES Performing Organization Address [facility] Co de Phone Number [facility] [place] [address] * (ABNORMAL) APTT (11/23/2016 6:24 AM EDT) Pathologist [facility] Partial Thromboplastin Time 103(H) 25 - [address] [facility] Comment: The recommended therapeutic range for full dose, unfractionated heparin at [facility] is 80 ? 114 seconds. The use of the anti-Xa (heparin) level rather than the PTT is recommended for monitoring anticoagulation intensity in critically ill patients receiving unfractionated heparin by continuous IV infusion. Blood specimen (specimen) 11/23/2016 6:24 AM EDT 11/23/2016 6:32 AM EDT Narrative Resulting Agency Comment Spec In Lab Drew Pepe MD HEMATOLOGY ORDERABLE S Performing Organization Address [facility] Co de Phone Number [facility] [place] [address] * Differential, Automated (11/23/2016 6:24 AM EDT) [facility] Neutrophil % 58.2 % [facility] Neutrophil Absolute 4.63 1.70 - 6.10 x10(3)/[facility] Lymph % 29.0 % [facility] Lymphocytes Abs 2.3 0.9 - 3.2 x10(3)/[facility] Monocyte % 7.3 % [facility] Monocyte Abs 0.6 0.3 - 0.9 x10(3)/[facility] Eos % 4.1 % [facility] Eosinophils Abs 0.3 0.0 - 0.4 x10(3)/[facility] Basophil % 1.0 % [facility] Baso Absolute 0.1 0.0 - 0.1 x10(3)/[facility] Immature Gran % 0.40 % [facility] Comment: Immature granulocytes(IG's)percentage and absolute count will include metamyelocytes, myelocytes, and promyelocytes. Blood smears from CBCs yielding IG's will be scanned manually for concordance. If this scan disagrees with the automated IG or if promyelocytes are noted, a manual differential will be performed. Immature Gran Absolute 0.03 0.00 - 0.04 x10(3)/[facility] Blood specimen (specimen) 11/23/2016 6:24 AM EDT 11/23/2016 6:32 AM EDT Narrative Resulting Agency Comment Spec In Lab Drew Pepe MD HEMATOLOGY ORDERABLE S [facility] [place] [address] * (ABNORMAL) Hemogram (11/23/2016 6:24 AM EDT) White Blood Cell 8.0 4.0 - 9.5 x10(3)/[facility] Red Blood Cell 5.00 4.58 - 5.54 x10(6)/[facility] Hemoglobin 14.5 13.7 - 16.5 gm/dL [facility] Hematocrit 43.1 40.5 - 48.5 % [facility] Mean Cell Volume 86.2 82.9 - 93.[address] [facility] Mean Cell Hemoglobin 29.0 27.5 - 32.[address] [facility] Mean Cell Hemoglobin Concentration 33.6 32.0 - 35.7 gm/dL [facility] Platelet 207 145 - 357 x10(3)/[facility] RDW Standard Deviation 44.5 36.0 - 45.0 [facility] RDW coefficient of variation 14.0(H) 11.4 - 13.8 % [facility] Mean Platelet Volume 10.4 7.6 - 12.[address] [facility] NRBC% auto 0.0 % [facility] NRBC Absolute 0.000 0.000 - 0.000 x10(3)/mc L [facility] Blood specimen (specimen) 11/23/2016 6:24 AM EDT 11/23/2016 6:32 AM EDT Narrative Resulting Agency Comment Spec In Lab Drew Pepe MD HEMATOLOGY ORDERABLE S Performing Organization Address [facility]/ZIP Co de Phone Number [facility] [place] [address] * (ABNORMAL) APTT (11/23/2016 12:03 AM EDT) Partial Thromboplastin Time 116(H) 25 - [address] [facility] Comment: The recommended therapeutic range for full dose, unfractionated heparin at [facility] is 80 ? 114 seconds. The use of the anti-Xa (heparin) level rather than the PTT is recommended for monitoring anticoagulation intensity in critically ill patients receiving unfractionated heparin by continuous IV infusion. Blood specimen (specimen) 11/23/2016 12:03 AM EDT 11/23/2016 12:07 AM EDT Narrative Resulting Agency Comment Spec In Lab Drew Pepe MD HEMATOLOGY ORDERABLE S Performing Organization Address [facility] Co de Phone Number [facility] [place] [address] * POCT Glucose (11/22/2016 7:45 PM EDT) Glucose, POC 102 65 - 199 mg/dL [facility] Comment: Supplemental ranges: <140 mg/dL before meals <180 mg/dL all other times of the day Blood specimen (specimen) 11/22/2016 7:45 PM EDT 11/22/2016 7:45 PM EDT Roque Sanches MD POINT OF CARE TEST O RDERABLES Performing Organization Address City/State/[facility] Co de Phone Number [facility] [place] [address] * Cardiac Enzymes (11/22/2016 5:11 PM EDT) [facility] Signature Troponin-T <0.03 <=0.03 ng/mL [facility] Comment: 0.03 ng/mL: Represents the 99th percentile upper reference limit for normals. >0.03 ng/mL: Elevated cardiac troponin T level indicative of myocardial damage. Diagnosis of acute, evolving or recent [place] requires a typical rise and gradual fall [...] consensus document of the Joint Society of Cardiology/[place] [employer] Committee for the redefinition of myocardial infarction. ??Journal of the [place] College [employer]iology 2000; 36: 959-969] Creatine Kinase 46 0 - 200 unit/L [facility] Blood specimen (specimen) 11/22/2016 5:11 PM EDT 11/22/2016 5:15 PM EDT Narrative Resulting Agency Comment Spec In Lab Roque Sanches MD CHEMISTRY ORDERABLES Performing Organization Address [facility] Co de Phone Number [facility] [place] [address] * (ABNORMAL) APTT (11/22/2016 5:11 PM EDT) [facility] Partial Thromboplastin Time 76(H) 25 - [address] [facility] Comment: The recommended therapeutic range for full dose, unfractionated heparin at [facility] is 80 ? 114 seconds. The use of the anti-Xa (heparin) level rather than the PTT is recommended for monitoring anticoagulation intensity in critically ill patients receiving unfractionated heparin by continuous IV infusion. Blood specimen (specimen) 11/22/2016 5:11 PM EDT 11/22/2016 5:15 PM EDT Narrative Resulting Agency Comment Spec In Lab Drew Pepe MD HEMATOLOGY ORDERABLE S Performing Organization Address [facility] Co de Phone Number [facility] [place] [address] * POCT Glucose (11/22/2016 4:50 PM EDT) Glucose, POC 100 65 - 199 mg/dL [facility] Comment: Supplemental ranges: <140 mg/dL before meals <180 mg/dL all other times of the day Blood specimen (specimen) 11/22/2016 4:50 PM EDT 11/22/2016 4:50 PM EDT Roque Sanches MD POINT OF CARE TEST O RDERABLES Performing Organization Address [facility]/ZIP Co de Phone Number [facility] [place] [address] * ECHO COMPLETE W CONTRAST (11/22/2016 12:59 PM EDT) EF 60 HEARTLAB SYSTEM Anatomical Region Laterality Modality Other 11/22/2016 Narrative 11/22/2016 1:38 PM EDT Procedure: ?Transthoracic Echocardiogram Patient: ?COELHO ROMEO A ? (Age): 1965(51y) Med Rec#: ? [id number] ?Sex: ?M ? Site Loc: ? [facility] ?Ht / Wt: ??178(cm)/95(kg) Pt. Loc: ?Adult Floor ? BSA: ?2.13 Study Date: ?? 11/22/2016 ?Pt. Type: Inpatient Tape: ? Referring: Roque Sanches ([id number]) Reading: Roque Sanches ([id number]) Manager Sustainability: Jorge A Street Diagnosis: *ICD-10-PCS Unstable angina (I20.0) CPT Codes: *Echo Full (78075) *Spectral Doppler (36101) *Color Doppler (45682) *Optison ([id number]) Rhythm: ? Sinus BP: ? 113/70 SUMMARY: [...] E-wave Vmax ?0.5 ?m/sec ? MV deceleration [id number] ?msec ? MV A-wave Vmax ?0.4 ?m/sec [...] ? Mid-Inferior ?Normal ? Mid-Inferoseptal ?Normal ? [place]-Septal ? Normal ? [place]-Anterior ? Normal ? [place]-Lateral ?Normal ? [place]-Inferior ? Normal ? [place]-Tip ?Normal ? This report has been electronically signed by: Roque Sanches M.D. ? 11/22/2016 13:38:29 Images reviewed and interpretation verified [facility] Procedure Note Roque Sanches MD - 11/22/2016 Procedure: Transthoracic Echocardiogram Patient: LAQUITA Pop DOB(Age): 1965(51y) Med Rec#: [id number] Sex: M Site Loc: [facility] Ht / Wt: 178(cm)/95(kg) Pt. Loc: Adult Floor BSA: 2.13 Study Date: 11/22/2016 Pt. Type: Inpatient Tape: Referring: Roque Sanches ([id number]) Reading: Roque Sanches () Manager Sustainability: Jorge A Street Diagnosis: *ICD-10-PCS Unstable angina (I20.0) CPT Codes: *Echo Full (31932) *Spectral Doppler (29349) *Color Doppler (78768) *Optison ([id number]) Rhythm: Sinus BP: 113/70 SUMMARY: 1. The [...] MV E-wave Vmax 0.5 m/sec MV deceleration [id number] msec MV A-wave Vmax 0.4 m/sec MV [...] Hypokinetic Mid-Posterolateral Hypokinetic Mid-Inferior Normal Mid-Inferoseptal Normal [place]-Septal Normal [place]-Anterior Normal [place]-Lateral Normal [place]-Inferior Normal [place]-Tip Normal This report has been electronically signed by: Roque Sanches M.D. 11/22/2016 13:38:29 Images reviewed and interpretation verified [facility] Drew Pepe MD ECHO ORDERABLES * POCT Glucose (11/22/2016 12:11 PM EDT) Glucose, POC 94 65 - 199 mg/dL [facility] Comment: Supplemental ranges: <140 mg/dL before meals <180 mg/dL all other times of the day Blood specimen (specimen) 11/22/2016 12:11 PM EDT 11/22/2016 12:11 PM EDT Roque Sanches MD POINT OF CARE TEST O RDERABLES Performing Organization Address [facility] Co de Phone Number [facility] [place] [address] * Potassium (11/22/2016 10:06 AM EDT) Potassium 3.8 3.5 - 5.0 mmol/L [facility] Comment: Please note: ??Patients with [...] Pepe MD CHEMISTRY ORDERABLES Performing Organization Address [facility] Co de Phone Number [facility] [place] [address] * Cardiac Enzymes (11/22/2016 10:06 AM EDT) Troponin-T <0.03 <=0.03 ng/mL [facility] Comment: 0.03 ng/mL: Represents the 99th percentile upper reference limit for normals. >0.03 ng/mL: Elevated cardiac troponin T level indicative of myocardial damage. Diagnosis of acute, evolving or recent [place] requires a typical rise and gradual fall [...] consensus document of the Joint Society of Cardiology/[place] [employer]iology Committee for the redefinition of myocardial infarction. ??Journal of the [place] College of Cardiology 2000; 36: 959-969] Creatine Kinase 48 0 - 200 unit/L [facility] Blood specimen (specimen) 11/22/2016 10:06 AM EDT 11/22/2016 10:16 AM EDT Narrative Resulting Agency Comment Spec In Lab Drew Pepe MD CHEMISTRY ORDERABLES Performing Organization Address [facility] Co de Phone Number [facility] [place] [address] * (ABNORMAL) APTT (11/22/2016 10:06 AM EDT) [facility] Partial Thromboplastin Time 104(H) 25 - [address] [facility] Comment: The recommended therapeutic range for full dose, unfractionated heparin at [facility] is 80 ? 114 seconds. The use of the anti-Xa (heparin) level rather than the PTT is recommended for monitoring anticoagulation intensity in critically ill patients receiving unfractionated heparin by continuous IV infusion. Blood specimen (specimen) 11/22/2016 10:06 AM EDT 11/22/2016 10:16 AM EDT Narrative Resulting Agency Comment Spec In Lab Roque Sanches MD HEMATOLOGY ORDERABLE S Performing Organization Address [facility] de Phone Number [facility] [place] [address] * XR Chest PA & Lateral (Generic) [...] Glucose, POC 135 65 - 199 mg/dL [facility] Comment: Supplemental ranges: <140 mg/dL before meals <180 mg/dL all other times of the day Blood specimen (specimen) 11/22/2016 7:44 AM EDT 11/22/2016 7:44 AM EDT Roque Sanches MD POINT OF CARE TEST O RDERABLES Performing Organization Address [facility] Co de Phone Number [facility] [place] [place] [address] * EKG 12 Lead (11/22/2016 7:12 AM EDT) Ventricular rate 74 BPM MUSE SYSTEM Atrial Rate 74 BPM MUSE SYSTEM P-R Interval 146 ms MUSE SYSTEM QRS Duration 92 ms MUSE SYSTEM Q-T Interval 382 ms MUSE SYSTEM QTC Calculated (Bezet) 424 ms MUSE SYSTEM Calculated P [place] 34 degrees MUSE SYSTEM Calculated R [place] 26 degrees MUSE SYSTEM Calculated T [place] 27 degrees MUSE SYSTEM INTERPRETATION Normal sinus rhythm Normal ECG When compared with ECG of 21-NOV-2016 20:34, (unconfirmed) No significant change was found Confirmed by MD Walton Douglas ([id number]) on 11/22/2016 10:51:21 AM MUSE SYSTEM 11/22/2016 7:12 AM EDT 11/22/2016 10:51 AM EDT Roque Sanches MD ECG ORDERABLES Performing Organization Address City/[facility]/ZIP Co de Phone Number MUSE SYSTEM * (ABNORMAL) Lipid Panel (11/22/2016 3:58 AM EDT) Cholesterol, Total 125 <=239 mg/dL [facility] Triglyceride 171 <=199 mg/dL [facility] HDL Cholesterol 39(L) >=40 mg/dL [facility] LDL Cholesterol 52 <=190 mg/dL [facility] Cholesterol/HDL Ratio 3.[address] [facility] Lipid Interpretation See Note [facility] Comment: Lipid management should be guided by a patient? s ASCVD risk, goals and preferences. ACC/AHA Guidelines recommend high intensity statin if clinical ASCVD or LDL greater than or equal to 190 mg/dL. http://circ.ahajournals.org/content/early/.cir.9365777053.85863.7a Adults aged 40-75 with LDL 70-189 mg/dL should have their 10 year ASCVD risk estimated with the ACC/AHA ASCVD risk construction cost estimator http://tools.acc.org/QVXWF-Hreq-Urtpcpdez/ Statin should be discussed if risk greater [...] In Lab Roque Sanches MD CHEMISTRY ORDERABLES [facility] [place] [address] * Cardiac Enzymes (11/22/2016 3:58 AM EDT) Troponin-T <0.03 <=0.03 ng/mL [facility] Comment: 0.03 ng/mL: Represents the 99th percentile upper reference limit for normals. >0.03 ng/mL: Elevated cardiac troponin T level indicative of myocardial damage. Diagnosis of acute, evolving or recent [place] requires a typical rise and gradual fall [...] consensus document of the Joint Society of Cardiology/[place] College of Cardiology Committee for the redefinition of myocardial infarction. ??Journal of the [place] College of Cardiology 2000; 36: 959-969] Creatine Kinase 50 0 - 200 unit/L [facility] Blood specimen (specimen) Venous Draw / Unknown 11/22/2016 3:58 AM EDT 11/22/2016 4:13 AM EDT Narrative Resulting Agency Comment Spec In Lab Roque Sanches MD CHEMISTRY ORDERABLES [facility] [place] [address] * Differential, Automated (11/22/2016 3:58 AM EDT) Neutrophil % 56.6 % [facility] Neutrophil Absolute 4.86 1.70 - 6.10 x10(3)/[facility] LAB[facility] Lymph % 30.3 % [facility] Lymphocytes Abs 2.6 0.9 - 3.2 x10(3)/[facility] LAB[facility] Monocyte % 7.7 % [facility] Monocyte Abs 0.7 0.3 - 0.9 x10(3)/[facility] LAB[facility] Eos % 4.5 % [facility] Eosinophils Abs 0.4 0.0 - 0.4 x10(3)/[facility] LAB[facility] Basophil % 0.6 % [facility] Baso Absolute 0.0 0.0 - 0.1 x10(3)/[facility] LABORATORY Immature Gran % 0.30 % [facility] Comment: Immature granulocytes(IG's)percentage and absolute count will include metamyelocytes, myelocytes, and promyelocytes. Blood smears from CBCs yielding IG's will be scanned manually for concordance. If this scan disagrees with the automated IG or if promyelocytes are noted, a manual differential will be performed. Immature Gran Absolute 0.03 0.00 - 0.04 x10(3)/[facility] Blood specimen (specimen) 11/22/2016 3:58 AM EDT 11/22/2016 4:13 AM EDT Narrative Resulting Agency Comment Spec In Lab Roque Sanches MD HEMATOLOGY ORDERABLE S Performing Organization Address City/State/[facility] Co de Phone Number [facility] [place] [address] * (ABNORMAL) Hemogram (11/22/2016 3:58 AM EDT) White Blood Cell 8.6 4.0 - 9.5 x10(3)/[facility] LABORATORY Red Blood Cell 4.80 4.58 - 5.54 x10(6)/[facility] Hemoglobin 13.8 13.7 - 16.5 gm/dL [facility] Hematocrit 41.9 40.5 - 48.5 % [facility] Mean Cell Volume 87.3 82.9 - 93.[address] [facility] Mean Cell Hemoglobin 28.8 27.5 - 32.[address] [facility] Mean Cell Hemoglobin Concentration 32.9 32.0 - 35.7 gm/dL [facility] Platelet 219 145 - 357 x10(3)/[facility] LAB[facility] RDW Standard Deviation 44.7 36.0 - 45.[address] [facility] RDW coefficient of variation 14.0(H) 11.4 - 13.8 % [facility] Mean Platelet Volume 10.9 7.6 - 12.[address] [facility] NRBC% auto 0.0 % [facility] NRBC Absolute 0.000 0.000 - 0.000 x10(3)/mc L [facility] Blood specimen (specimen) 11/22/2016 3:58 AM EDT 11/22/2016 4:13 AM EDT Narrative Resulting Agency Comment Spec In Lab Roque Sanches MD HEMATOLOGY ORDERABLE S Performing Organization Address City/State/[facility] Co de Phone Number [facility] [place] [address] * (ABNORMAL) BMP w/fasting Glucose (11/22/2016 3:58 AM EDT) Glucose Fasting 127(H) 65 - 99 mg/dL [facility] Comment: ?Fasting* Glucose Interpretive Criteria [...] of Diabetes Mellitus, Position Statement from the [place] Diabetes Association. ??Diabetes Care, Volume 33, Supplement 1, Aug 2009 Blood Urea Nitrogen 10 10 - 20 mg/dL [facility] Creatinine 0.85 0.80 - 1.50 mg/dL [facility] Comment: Please note that the pediatric reference intervals supplied above were not validated at [facility]. Results from pediatric patients should be interpreted in conjunction to the patient's age, height and muscle mass. Sodium 142 135 - 145 mmol/L [facility] Potassium 3.3(L) 3.5 - 5.0 mmol/L [facility] Comment: Please note: ??Patients with WBC >100,000 may have falsely elevated Potassium levels. ??For accurate Potassium quantification in these patients send serum separator tube (gold top) for subsequent determinations. ??Contact the Clinical Chemistry Laboratory if there are any questions. Chloride 106 98 - 107 mmol/L [facility] Carbon Dioxide 21(L) 22 - 31 mmol/L [facility] Anion Gap 15 5 - 15 mmol/L [facility] Calcium 8.8 8.5 - 10.5 mg/dL [facility] Est Glomerular Filtration Rate >60 >=60 [facility] Comment: This estimated GFR (eGFR) value [...] the following links into your internet browser. [email or web address] Blood specimen (specimen) 11/22/2016 3:58 AM EDT 11/22/2016 4:13 AM EDT Narrative Resulting Agency Comment Spec In Lab Roque Sanches MD CHEMISTRY ORDERABLES [facility] [place] [address] * (ABNORMAL) APTT (11/22/2016 3:58 AM EDT) [facility] Signature Partial Thromboplastin Time 44(H) 25 - [address] [facility] Comment: The recommended therapeutic range for full dose, unfractionated heparin at [facility] is 80 ? 114 seconds. The use of the anti-Xa (heparin) level rather than the PTT is recommended for monitoring anticoagulation intensity in critically ill patients receiving unfractionated heparin by continuous IV infusion. Blood specimen (specimen) 11/22/2016 3:58 AM EDT 11/22/2016 4:13 AM EDT Narrative Resulting Agency Comment Spec In Lab Drew Pepe MD HEMATOLOGY ORDERABLE S Performing Organization Address [facility] Co de Phone Number [facility] [place] [phone] * EKG 12 Lead (11/21/2016 8:34 PM EDT) Ventricular rate 72 BPM MUSE SYSTEM Atrial Rate 72 BPM MUSE SYSTEM P-R Interval 138 ms MUSE SYSTEM QRS Duration 86 ms MUSE SYSTEM Q-T Interval 382 ms MUSE SYSTEM QTC Calculated (Bezet) 418 ms MUSE SYSTEM Calculated P [place] -2 degrees MUSE SYSTEM Calculated R [place] 16 degrees MUSE SYSTEM Calculated T [place] 16 degrees MUSE SYSTEM INTERPRETATION Normal sinus rhythm Normal ECG When compared with ECG of 30-JUL-2013 08:41, No significant change was found Confirmed by MD Walton Douglas ([id number]) on 11/22/2016 10:49:32 AM MUSE SYSTEM 11/21/2016 8:34 PM EDT 11/22/2016 10:49 AM EDT Drew Pepe MD ECG ORDERABLES Performing Organization Address [facility] de Phone Number MUSE SYSTEM * Hemoglobin A1c (11/21/2016 8:32 PM EDT) Hemoglobin A1c 5.6 4.3 - 5.6 % [facility] Comment: Reference Range: 4.3 - [...] Mellitus, Diabetes Care 2013; 36: Suppl. 1, X90-68 Estimated Average Glucose 114 mg/dL [facility] Comment: eAG equivalents for HbA1c percentages: HbA1c(%) ?eAG(mg/dL) 6.0 ?126 6.5 ?140 7.0 ?154 7.5 ?169 8.0 ?183 8.5 ?197 9.0 ?212 9.5 ?226 10.0 ? 240 Limitations: The eAG calculation has not been validated on women, individuals below 18 years old and above 70 years old, and individuals with hemoglobinopathies. Additional resources are available on the ADA website: [email or web address] Ashok PIMENTEL, Abdulkadir Tenorio, Jamie R, et al. ??Translating the A1C assay into estimated average glucose values. ??Diabetes Care 2008:31(8):0682-0407. Blood specimen (specimen) Venous Draw / Unknown 11/21/2016 8:32 PM EDT 11/22/2016 12:39 AM EDT Narrative Resulting Agency Comment Spec In Lab Drew Pepe MD CHEMISTRY ORDERABLES [facility] [place] [address] * TSH (11/21/2016 8:32 PM EDT) Thyroid Stimulating Hormone 2.29 0.27 - 4.20 mcIU/mL [facility] Blood specimen (specimen) Venous Draw / Unknown 11/21/2016 8:32 PM EDT 11/21/2016 8:40 PM EDT Narrative Resulting Agency Comment Spec In Lab Drew Pepe MD CHEMISTRY ORDERABLES Performing Organization Address City/[facility]/ZIP Co de Phone Number [facility] [place] [address] * (ABNORMAL) Differential, Automated (11/21/2016 8:32 PM EDT) Neutrophil % 38.3 % [facility] Neutrophil Absolute 3.02 1.70 - 6.10 x10(3)/ L [facility] Lymph % 48.7 % [facility] Lymphocytes Abs 3.8(H) 0.9 - 3.2 x10(3)/ L [facility] Monocyte % 7.3 % [facility] Monocyte Abs 0.6 0.3 - 0.9 x10(3)/ L [facility] Eos % 4.4 % [facility] Eosinophils Abs 0.4 0.0 - 0.4 x10(3)/[facility] LABORATORY Basophil % 0.9 % [facility] Baso Absolute 0.1 0.0 - 0.1 x10(3)/ L [facility] Immature Gran % 0.40 % [facility] Comment: Immature granulocytes(IG's)percentage and absolute count will include metamyelocytes, myelocytes, and promyelocytes. Blood smears from CBCs yielding IG's will be scanned manually for concordance. If this scan disagrees with the automated IG or if promyelocytes are noted, a manual differential will be performed. Immature Gran Absolute 0.03 0.00 - 0.04 x10(3)/mc L [facility] Blood specimen (specimen) 11/21/2016 8:32 PM EDT 11/21/2016 8:37 PM EDT Narrative Resulting Agency Comment Spec In Lab Drew Pepe MD HEMATOLOGY ORDERABLE S Performing Organization Address [facility]/ZIP Co de Phone Number [facility] [place] [address] * Hemogram (11/21/2016 8:32 PM EDT) Pathologist [facility] White Blood Cell 7.9 4.0 - 9.5 x10(3)/[facility] LABORATORY Red Blood Cell 4.64 4.58 - 5.54 x10(6)/[facility] LAB[facility]ORY Hemoglobin 13.9 13.7 - 16.5 gm/dL [facility] Hematocrit 40.6 40.5 - 48.5 % [facility] Mean Cell Volume 87.5 82.9 - 93.1 [facility] LAB[facility] Mean Cell Hemoglobin 30.0 27.5 - 32.[address] [facility] Mean Cell Hemoglobin Concentration 34.2 32.0 - 35.7 gm/dL [facility] Platelet 179 145 - 357 x10(3)/[facility] LABORATORY RDW Standard Deviation 44.3 36.0 - 45.0 [facility] LAB[facility]ATORY RDW coefficient of variation 13.8 11.4 - 13.8 % [facility] Mean Platelet Volume 10.8 7.6 - 12.9 [facility] LABORATORY NRBC% auto 0.0 % [facility] NRBC Absolute 0.000 0.000 - 0.000 x10(3)/[facility] LAB[facility] Blood specimen (specimen) 11/21/2016 8:32 PM EDT 11/21/2016 8:37 PM EDT Narrative Resulting Agency Comment Spec In Lab Drew Pepe MD HEMATOLOGY ORDERABLE S [facility] [place] [address] * Cardiac Enzymes (11/21/2016 8:32 PM EDT) Pathologist [facility] Troponin-T <0.03 <=0.03 ng/mL [facility] Comment: 0.03 ng/mL: Represents the 99th percentile upper reference limit for normals. >0.03 ng/mL: Elevated cardiac troponin T level indicative of myocardial damage. Diagnosis of acute, evolving or recent [place] requires a typical rise and gradual fall [...] consensus document of the Joint Society of Cardiology/[place] [employer] Cardiology Committee for the redefinition of myocardial infarction. ??Journal of the [place] College of Cardiology 2000; 36: 959-969] Creatine Kinase 64 0 - 200 unit/L [facility] Blood specimen (specimen) 11/21/2016 8:32 PM EDT 11/21/2016 8:37 PM EDT Narrative Resulting Agency Comment Spec In Lab Drew Pepe MD CHEMISTRY ORDERABLES Performing Organization Address City/[facility] Co de Phone Number [facility] [place] [address] * APTT (11/21/2016 8:32 PM EDT) [facility] Partial Thromboplastin Time 32 25 - [address] [facility] Comment: The recommended therapeutic range for full dose, unfractionated heparin at [facility] is 80 ? 114 seconds. The use of the anti-Xa (heparin) level rather than the PTT is recommended for monitoring anticoagulation intensity in critically ill patients receiving unfractionated heparin by continuous IV infusion. Blood specimen (specimen) 11/21/2016 8:32 PM EDT 11/21/2016 8:37 PM EDT Narrative Resulting Agency Comment Spec In Lab Drew Pepe MD HEMATOLOGY ORDERABLE S Performing Organization Address City/[facility]/ZIP Co de Phone Number [facility] [place] [address] * Prothrombin Time (11/21/2016 8:32 PM EDT) [facility] Prothrombin Time 14.0 12.0 - 15.[address] [facility] Comment: An INR <2.0 indicates [...] International Normalization Ratio 1.0 0.9 - 1.1 [facility] Blood specimen (specimen) 11/21/2016 8:32 PM EDT 11/21/2016 8:37 PM EDT Narrative Resulting Agency Comment Spec In Lab Drew Pepe MD HEMATOLOGY ORDERABLE S Performing Organization Address [facility] Co de Phone Number [facility] [place] [address] * Hepatic Function Panel (11/21/2016 8:32 PM EDT) Protein, Total 6.8 6.1 - 8.0 gm/dL [facility] Albumin 4.0 3.2 - 5.2 gm/dL [facility] Aspartate Aminotransferase 15 0 - 39 unit/L [facility] Alanine Aminotransferase 9 0 - 55 unit/L [facility] Alkaline Phosphatase 43 40 - 120 unit/L [facility] Bilirubin, Total 0.2 0.2 - 1.3 mg/dL [facility] Bilirubin, Direct <0.1 0.0 - 0.3 mg/dL [facility] Blood specimen (specimen) 11/21/2016 8:32 PM EDT 11/21/2016 8:37 PM EDT Narrative Resulting Agency Comment Spec In Lab Drew Pepe MD CHEMISTRY ORDERABLES Performing Organization Address [facility] Co de Phone Number [facility] [place] [address] * (ABNORMAL) Basic Metabolic Panel (non-fasting) (11/21/2016 8:32 PM EDT) Glucose 84 65 - 199 mg/dL [facility] Comment:Diabetes: >=200 mg/d L plus symptoms Blood Urea Nitrogen 10 10 - 20 mg/dL [facility] Creatinine 0.95 0.80 - 1.50 mg/dL [facility] Comment: Please note that the pediatric reference intervals supplied above were not validated at [facility]. Results from pediatric patients should be interpreted in conjunction to the patient's age, height and muscle mass. Sodium 145 135 - 145 mmol/L [facility] Potassium 3.5 3.5 - 5.0 mmol/L [facility] Comment: Please note: ??Patients with WBC >100,000 may have falsely elevated Potassium levels. ??For accurate Potassium quantification in these patients send serum separator tube (gold top) for subsequent determinations. ??Contact the Clinical Chemistry Laboratory if there are any questions. Chloride 105 98 - 107 mmol/L [facility] Carbon Dioxide 19(L) 22 - 31 mmol/L [facility] Anion Gap 21(H) 5 - 15 mmol/L [facility] Calcium 9.2 8.5 - 10.5 mg/dL [facility] Est Glomerular Filtration Rate >60 >=60 [facility] Comment: This estimated GFR (eGFR) value [...] the following links into your internet browser. [email or web address] Blood specimen (specimen) 11/21/2016 8:32 PM EDT 11/21/2016 8:37 PM EDT Narrative Resulting Agency Comment Spec In Lab Drew Pepe MD CHEMISTRY ORDERABLES [facility] [place] [address] * pro-Brain Natriuretic Peptide (11/21/2016 8:32 PM EDT) NT-proBNP 65 <=125 pg/mL [facility] Blood specimen (specimen) 11/21/2016 8:32 PM EDT 11/21/2016 8:37 PM EDT Narrative Resulting Agency Comment Spec In Lab Drew Pepe MD CHEMISTRY ORDERABLES Performing Organization Address [facility] Co de Phone Number [facility] [place] [address] * POCT Glucose (11/21/2016 8:12 PM EDT) Glucose, POC 80 65 - 199 mg/dL [facility] Comment: Supplemental ranges: <140 mg/dL before meals <180 mg/dL all other times of the day Blood specimen (specimen) 11/21/2016 8:12 PM EDT 11/21/2016 8:12 PM EDT Valentín Oreilly MD POINT OF CARE TEST ORDERABLES Performing Organization Address City/[facility] Co de Phone Number [facility] [place] [address] documented in this encounter Visit Diagnoses Diagnosis Unstable angina- Primary Intermediate coronary syndrome Unstable angina Intermediate coronary syndrome DM (diabetes mellitus) Type II or unspecified type diabetes mellitus without mention of complication, not stated as uncontrolled CAD (coronary artery disease) Coronary atherosclerosis of unspecified type of vessel, cantwell or graft HTN (hypertension) Unspecified essential hypertension [...] 0814 (Given - Provider: Esha Chen RN)181 ([facility] Hold - Provider: Admin Adt - Reason: Transfer to a Procedural area)1940 ([facility] Unhold - Provider: Admin Adt) 09 (Given - Provider: Venancio Bourgeois RN) atorvastatin (LIPITOR) tablet 80 mg 80 mg, Oral, EVERY EVENING, First dose on 11/22/16 at 1700, Until Discontinued, Routine 162 (Given - Provider: Esha Chen RN) 165 (Given - Provider: Esha Chen RN)1811 ([facility] Hold - Provider: Admin Adt - Reason: Transfer to a Procedural area)1940 ([facility] Unhold - Provider: Admin Adt) buPROPion (WELLBUTRIN SR or ZYBAN) SR tablet 150 mg 150 mg, Oral, 2 TIMES DAILY, First dose on 11/22/16 at 0030, Until Discontinued, DO NOT CRUSH OR OPEN, Routine 0803 (Given - Provider: Esha Chen RN)2058 (Given - Provider: Christy Medina RN) 0814 (Given - Provider: Esha Chen RN)1811 ([facility] Hold - Provider: Admin Adt - Reason: Transfer to a Procedural area)1940 ([facility] Unhold - Provider: Admin Adt)2107 (Given - Provider: Venice Huffman RN) 0900 (Given - Provider: Venancio Bourgeois RN) clopidogrel (PLAVIX) tablet 75 mg 75 mg, Oral, DAILY, First dose on 11/22/16 at 0900, Until Discontinued, Routine 0804 (Given - Provider: Esha Chen RN) 0815 (Given - Provider: Esha Chen RN)181 ([facility] Hold - Provider: Admin Adt - Reason: Transfer to a Procedural area)1940 ([facility] Unhold - Provider: Admin Adt) [...] (Given - Provider: Esha Chen RN)1811 ([facility] Hold - Provider: Admin Adt - Reason: Transfer to a Procedural area)1940 ([facility] Unhold - Provider: Admin Adt)2107 [...] RN)1447 (Given - Provider: Esha Chen RN)1811 ([facility] Hold - Provider: Admin Adt - Reason: Transfer to a Procedural area)1940 ([facility] Unhold - Provider: Admin Adt) 0551 (Given - Provider: Venice Huffman, VERO) gabapentin (NEURONTIN) capsule 900 mg 900 mg, Oral, NIGHTLY, First dose on 11/22/16 at 0030, Until Discontinued, Routine 2058 (Given - Provider: Christy Medina RN) 1811 ([facility] Hold - Provider: Admin Adt - Reason: Transfer to a Procedural area)1940 ([facility] Unhold - Provider: Admin Adt)2142 (Given - [...] Reason: Transfer to a Procedural area)1940 ([facility] Unhold - Provider: Admin Adt) [...] (Given - Provider: Esha Chen RN)1811 ([facility] Hold - Provider: Admin Adt - Reason: Transfer to a Procedural area)1940 ([facility] Unhold - Provider: Admin Adt)2107 (Given - Provider: Venice Huffman, VERO) 899 (Given - Provider: Venancio Bourgeois, VERO) pantoprazole (PROTONIX) tablet 40 mg 40 mg, Oral, DAILY, First dose on 11/22/16 at 0900, Until Discontinued, DO NOT CRUSH OR OPEN, Routine 08 (Given - Provider: Esha Chen RN) 08 (Given - Provider: Esha Chen RN)1811 ([facility] Hold - Provider: Admin Adt - Reason: Transfer to a Procedural area)1940 ([facility] Unhold - Provider: Admin Adt) 900 (Given - Provider: Venancio Bourgeois, VERO) pramipexole (MIRAPEX) tablet 0.5 mg 0.5 mg, Oral, NIGHTLY, First dose on 11/22/16 at 0030, Until Discontinued, Routine 2058 (Given - Provider: Christy Medina RN) 1811 ([facility] Hold - Provider: Admin Adt - Reason: Transfer to a Procedural area)1940 ([facility] Unhold - Provider: Admin Adt)2107 [...] Reason: Transfer to a Procedural area)1940 ([facility] Unhold - Provider: Admin Adt) cyclobenzaprine (FLEXERIL) tablet 10 mg 10 mg, Oral, 3 TIMES DAILY PRN, Starting on 11/22/16 at 0013, Until Thu11/25/16 at 1305, Muscle spasms, Routine 1811 ([facility] Hold - Provider: Admin Adt - Reason: Transfer to a Procedural area)1940 ([facility] Unhold - Provider: Admin Adt) dextrose 50% [...] duration of the active insulin., Routine 1811 ([facility] Hold - Provider: Admin Adt - Reason: Transfer to a Procedural area)1940 ([facility] Unhold - Provider: Admin Adt) fentaNYL 50 [...] of the active insulin. , Routine 1811 ([facility] Hold - Provider: Admin Adt - Reason: Transfer to a Procedural area)1940 ([facility] Unhold - Provider: Admin Adt) [...] - Provider: Esha Chen RN) 1811 ([facility] Hold - Provider: Admin Adt - Reason: Transfer to a Procedural area)1940 ([facility] Unhold - Provider: Admin Adt) [...] discomfort with PIV insertion, Routine 1811 ([facility] Hold - Provider: Admin Adt - Reason: Transfer to a Procedural area)1940 ([facility] Unhold - Provider: Admin Adt) [...] 24 to 72 hours., Routine 1811 ([facility] Hold - Provider: Admin Adt - Reason: Transfer to a Procedural area)1940 ([facility] Unhold - Provider: Admin Adt) [...] - Provider: Esha Chen RN) 1811 ([facility] Hold - Provider: Admin Adt - Reason: Transfer to a Procedural area)1940 ([facility] Unhold - Provider: Admin Adt) sodium chloride 0.9 % flush 5-20 mL 5-20 mL, Intravenous, EVERY 1 MIN PRN, Starting on 11/22/16 at 0013, Until 11/25/16 at 1305, flush, Flush pertains to all indwelling lines. Flush per protocol found in the job aid using the link provided on this medication record., Routine 1811 ([facility] Hold - Provider: Admin Adt - Reason: Transfer to a Procedural area)1940 ([facility] Unhold - Provider: Admin Adt) sodium chloride 0.9 % flush 5-20 mL 5-20 mL, Intravenous, EVERY 1 MIN PRN, Starting on Thu11/21/16 at 2010, Until Thu11/25/16 at 1305, flush, Flush pertains to all indwelling lines. Flush per protocol found in the job aid using the link provided on this medication record., Routine 1811 ([facility] Hold - Provider: Admin Adt - Reason: Transfer to a Procedural area)1940 ([facility] Unhold - Provider: Admin Adt) [...] Routine documented in this encounter Care Teams Finance Executive Relationship Specialty Start Date End Date Coni Lim MD [address] [place] [address] PCP - General 07/16/10 documented as of this encounter
--- OUTSIDE RECORDS SUMMARY | 2024-04-30 18:21 | XMS_ITS | Encounter Summary ---
Author Organization [facility] [place] [address] Care Team Providers Care Moisture Meter Operator Name Role Phone Coni Lim MD Primary Care Provider [phone] Encounter Details Date Type Department Care Team (Late st Contact Info) Description 08/07/2017 Notes Only Cardiology at [address] [phone] Marianne Barker Social History Tobacco Use Types [...] on filedocumented in this encounter Care Teams Moisture Meter Operator Relationship Specialty Start Date End Date Coni Lim MD [address] [place] [address] PCP - General 07/16/10 documented as of this encounter
--- OUTSIDE RECORDS SUMMARY | 2024-04-30 18:21 | XMS_ITS | Encounter Summary ---
Author Organization [facility] [place] [address] Care Team Providers Care Slurry Tank Operator Name Role Phone Coni Lim MD Primary Care Provider [phone] Encounter Details Date Type Department Care Team (Late st Contact Info) Description 11/26/2016 External Results [place] [address] Dwayne Gonzalez MD [address] [place] [id number] Social History Tobacco Use Types Packs/Day Years [...] on filedocumented in this encounter Care Teams Slurry Tank Operator Relationship Specialty Start Date End Date Coni Lim MD [address] [place], [place] [id number] PCP - General 07/16/10 documented as of this encounter
--- OUTSIDE RECORDS SUMMARY | 2024-04-30 18:21 | XMS_ITS | Encounter Summary ---
Author Organization [facility] Address [facility] [place] [address] Care Team Providers Care Cryptologic Support Specialist Name Role Phone Coni Lim MD Primary Care Provider [phone] Reason for Visit * Reason Comments Chest Pain * Auth/Cert Specialty Diagnoses / Procedures Referred By Contac t Referred To Contact Diagnoses Unstable angina chest pain Referral ID Status Reason Start Date Expiration Date Visits Re quested Visits Authorized [id number] 1 1 Encounter Details Date Type Department Care Team (Late st Contact Info) Description 09/13/2017 9:25 AM EST - 09/13/2017 11:05 AM EST [place] [id number] Agusto Ball II, MD [facility] [place] [address] CARDIAC CATHETERIZATION Social History Tobacco Use Types [...] Romeo Coe Patient Age: 52 y.o. Language: Andorran Race: White Ethnicity: Not nor Admit date: [...] please contact your inpatient physician through the [facility] Vacuum Cleaner Operator . Issues afterhours and on weekends will be handled by the child support specialist on-call. Discharge Diagnoses (Hospital Problems) and Secondary [...] restenosis addressed with LAD stent angioplasty at [facility] in January 2014 (ABSORB Stent) [...] patient to come to the hospital today. Net Web Application Developer is Dr. Vyas. ?? Currently, he watches [...] lightheadedness/presyncopal symptoms. He will follow-up with his fruit tester, Dr. Vyas, approximately 1 week as an [...] PF, Split 07/30/2013 ??? Influenza Vaccine (Novel) [id number], Injectable 05/24/2009 ??? Influenza Vaccine w/Preservative, Split [...] Discharge References/Attachments PCI (PERCUTANEOUS CORONARY INTERVENTION): POST-OP (ANDORRAN) documented in this encounter Discharge Instructions * [...] PCP PO QIANA Gerardo / ANTHONY CORDERO [address] 09/22/2017, 10:30 AM Florian Ling MD, Net Web Application Developer [place], [place] Your Inpatient Doctor(s) at [facility]: Christos Buchanan MD Daniel Storms, MD Sean Li, MD Jeffrey R Wunderlich, MD Your Primary Care Provider: Coni Lim MD [address] [place] [address] For questions regarding this document or issues relating to this hospitalization on the Medical Service, please contact your inpatient physician through the [facility] Vacuum Cleaner Operator . Issues afterhours and on weekends will be handled by the Hospitalist staff on-call. * Attachments The following attachments cannot be sent through Care Everywhere. * PCI (PERCUTANEOUS CORONARY INTERVENTION): POST-OP (ANDORRAN) documented in this encounter Medications at Time [...] Pierson MD, PGY-1 Cardiology Service Pager # [phone] * Aida Dietrich MSW - 09/13/2017 2:23 [...] copy of notice made and given to patient/school admissions representative. Original notice to be scanned into [...] 09/12/2017 5:31 PM EST Patient arrived to [facility] via stretcher from ED s/p chest [...] Buchanan MD PCP: Coni Lim MD PCP#: [phone] CC: Chest Pain Patient Active Problem List [...] restenosis addressed with LAD stent angioplasty at [facility] in January 2014 (ABSORB Stent) [...] patient to come to the hospital today. Net Web Application Developer is Dr. Vyas. Currently, he watches his [...] of Onset ??? Myocardial Infarction Father 46 [place], CABG ??? Diabetes Mother ??? Hypertension Mother [...] son (age 18 months), daughter 11 in [place], [place]. Takes care of his mother who has dementia and he takes her to dialysis. is disabled. Has grown daughter who is 29 years old. 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 Physical Exam: Vitals: Most Recent Vitals: 09/12/17 [...] restenosis addressed with LAD stent angioplasty at [facility] in January 2014 (ABSORB Stent) [...] two days ago. Patient has contacted his fruit tester who advised to presentto the ED. He [...] reviewed the EKG: Sinus Rhythm, rate 82 GA, QRS and QTc within normal limits No [...] Emergency Medicine *This note was dictated with Talkito software. Molly Mayer MD Resident 09/12/17 1713 [...] Within the Past 30 Days: None at [facility], nor at outside hospitals, per pt's report. 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 I've been disabled for five years due to Fibromyalgia and Arthritis. Home Environment: Lives with his , Dasia in [place], [place]. Social & Family Supports/Community Resources: , Friends, neighbors Dasia Coe (Spouse) [address] [facility] [phone] (H) [phone] (M) Behavioral Health History: Per pt report, has Anxiety and Depression, (on Cymbalta and Wellbutrin). Substance Use/Abuse: Current every day smoker; 1-5 cigarettes a day. EtOH: None. Illicit Drug Use: Marijuana every day, medical use. Other Pertinent/Service Specific Information: None Health/Prescription Coverage: Primary Insurance: MEDICARE PART A & B Secondary Insurance: MEDICAID [place] Prescription Coverage: Yes, has Silver Script. Preferred Pharmacy: [id number] [place] - [address] ? [address] [facility] [place] [address] ? Not a 24 hour pharmacy; exact hours not known Other: None Primary Care Provider: Coni Lim MD [phone] Patient/Caregiver Goals of Treatment: To return home and to his normal activities. Potential Needs for Transition of Care: Rehab/SNF: Pt has never been a pt in a rehab setting. Home Health: [facility] in the past (after right [...] transition of care planning. TIMBO Barrett Pager: [phone] * Plan of Care - Keisha Mae [...] tele. Cont to monitor. PLAN MOVING FORWARD: operations label clerk echo INDIVIDUALIZED FALL PREVENTION INTERVENTIONS: Patient-specific fall [...] 1 month of chest pressure, told by fruit tester that if he decided to be seen [...] METABOLIC PANEL Routine 09/14/2017 3:40 AM EST MACHINING DEPARTMENT SUPERVISOR SCAN 09/14/2017 12:00 AM EST POCT GLUCOSE Routine 09/13/2017 7:50 PM EST POCT GLUCOSE Routine 09/13/2017 4:58 PM EST ECHO LMTD W/O CONTRAST W LMTD SPEC DOPP COLOR DOPP Routine 09/13/2017 2:44 PM EST Coronary artery disease, angina presence unspecified, unspecified vessel or lesion type, unspecified whether upper mattaponi or transplanted heart POCT GLUCOSE Routine 09/13/2017 11:32 AM EST CARDIAC CATHETERIZATION Routine 09/13/19 18 11:09 AM EST EKG 12-LEAD STAT 09/13/2017 7:49 AM EST Coronary artery disease, angina presence unspecified, unspecified vessel or lesion type, unspecified whether upper mattaponi or transplanted heart POCT GLUCOSE Routine 09/13/2017 [...] Routine 09/13/2017 6:32 AM EST CARDIAC ENZYMES ([facility]) STAT 09/13/2017 12:13 AM EST APTT STAT 09/13/2017 12:13 AM EST CARDIAC CATH SCAN 09/13/2017 12: 00 AM EST POCT GLUCOSE Routine 09/12/2017 9:14 PM EST CARDIAC ENZYMES ([facility]) STAT 09/12/2017 6:53 PM EST XR CHEST [...] * POCT Glucose (09/14/2017 7:32 AM EST) [facility] Glucose, POC 158 65 - 199 mg/dL [facility] Comment: Supplemental ranges: <140 mg/dL before meals <180 mg/dL all other times of the day Blood specimen (specimen) 09/14/2017 7:32 AM EST 09/14/2017 7:32 AM EST Christos Buchanan MD POINT OF CARE TEST O RDERABLES [facility] [place] [address] * Differential, Automated (09/14/2017 3:40 AM EST) [facility] Neutrophil % 51.2 % [facility] Neutrophil Absolute 4.61 1.70 - 6.10 x10(3)/mcL [facility] Lymph % 34.3 % [facility] Lymphocytes Abs 3.1 0.9 - 3.2 x10(3)/[facility] Monocyte % 8.6 % [facility] Monocyte Abs 0.8 0.3 - 0.9 x10(3)/[facility] Eos % 4.6 % [facility] Eosinophils Abs 0.4 0.0 - 0.4 x10(3)/[facility] Basophil % 0.9 % [facility] Baso Absolute 0.1 0.0 - 0.1 x10(3)/[facility] Immature Gran % 0.40 % [facility] Comment: Immature granulocytes(IG's)percentage and absolute count will include metamyelocytes, myelocytes, and promyelocytes. Blood smears from CBCs yielding IG's will be scanned manually for concordance. If this scan disagrees with the automated IG or if promyelocytes are noted, a manual differential will be performed. Immature Gran Absolute 0.04 0.00 - 0.04 x10(3)/[facility] Blood specimen (specimen) 09/14/2017 3:40 AM EST 09/14/2017 4:08 AM EST Narrative Resulting Agency Comment Spec In Lab Christos Buchanan MD HEMATOLOGY ORDERABLE S [facility] [place] [address] * Hemogram (09/14/2017 3:40 AM EST) White Blood Cell 9.0 4.0 - 9.5 x10(3)/[facility] Red Blood Cell 5.28 4.58 - 5.54 x10(6)/[facility] Hemoglobin 15.0 13.7 - 16.5 gm/dL [facility] Hematocrit 45.8 40.5 - 48.5 % [facility] Mean Cell Volume 86.7 82.9 - 93.[address] [facility] Mean Cell Hemoglobin 28.4 27.5 - 32.1 pg [facility] Mean Cell Hemoglobin Concentration 32.8 32.0 - 35.7 gm/dL [facility] Platelet 188 145 - 357 x10(3)/[facility] RDW Standard Deviation 43.6 36.0 - 45.0 fL [facility] RDW coefficient of variation 13.7 11.4 - 13.8 % [facility] Mean Platelet Volume 10.4 7.6 - 12.9 fL [facility] NRBC% auto 0.0 % [facility] NRBC Absolute 0.000 0.000 - 0.000 x10(3)/[facility] Blood specimen (specimen) 09/14/2017 3:40 AM EST 09/14/2017 4:08 AM EST Narrative Resulting Agency Comment Spec In Lab Christos Buchanan MD HEMATOLOGY ORDERABLE S Performing Organization Address [facility] Co de Phone Number [facility] [place] [address] * Prothrombin Time (09/14/2017 3:40 AM EST) Prothrombin Time 13.3 11.8 - 14.0 sec [facility] International Normalization Ratio 1.0 0.9 - 1.1 [facility] Comment: An INR <2.0 [...] Lab Christos Buchanan MD HEMATOLOGY ORDERABLE S [facility] [place] [address] * Magnesium (09/14/2017 3:40 AM EST) Magnesium 0.83 0.69 - 1.07 mmol/L [facility] Blood specimen (specimen) 09/14/2017 3:40 AM EST 09/14/2017 4:08 AM EST Narrative Resulting Agency Comment Spec In Lab Christos Buchanan MD CHEMISTRY ORDERABLES [facility] [place] [address] * Basic Metabolic Panel (non-fasting) (09/14/2017 3:40 AM EST) Glucose 108 65 - 199 mg/dL [facility] Comment:Diabetes: >=200 mg/d L plus symptoms Blood Urea Nitrogen 11 10 - 20 mg/dL [facility] Creatinine 1.05 0.80 - 1.50 mg/dL [facility] Sodium 143 135 - 145 mmol/L [facility] Potassium 4.0 3.5 - 5.0 mmol/L [facility] Anion Gap 15 5 - 15 mmol/L [facility] Calcium 9.2 8.5 - 10.5 mg/dL [facility] Est Glomerular Filtration Rate >60 >=60 [facility] Comment: The reported eGFR should be multiplied by 1.2 for patients. The MDRD is not an appropriate measure of renal function for patients with body mass extremes or in patients with acute kidney failure. http://[employer]/DHnkdep http://[employer]/DHMCnkf Blood specimen (specimen) 09/14/2017 3:40 AM EST 09/14/2017 4:08 AM EST Narrative Resulting Agency Comment Spec In Lab Christos Buchanan MD CHEMISTRY ORDERABLES Performing Organization Address [facility] Co de Phone Number [facility] [place] [address] * SCAN DOC: MACHINING DEPARTMENT SUPERVISOR (09/14/2017 12:00 AM EST) Anatomical Region Laterality Modality Other Narrative 09/14/2017 12:00 AM EST Ordered by an unspecified provider. Scanning Provider MEDIA MGR SCAN EXT O RDR/RSLT * POCT Glucose (09/13/2017 7:50 PM EST) Glucose, POC 113 65 - 199 mg/dL [facility] Comment: Supplemental ranges: <140 mg/dL before meals <180 mg/dL all other times of the day Blood specimen (specimen) 09/13/2017 7:50 PM EST 09/13/2017 7:50 PM EST Christos Buchanan MD POINT OF CARE TEST O RDERABLES Performing Organization Address [facility] de Phone Number [facility] [place] [address] * POCT Glucose (09/13/2017 4:58 PM EST) Glucose, POC 138 65 - 199 mg/dL [facility] Comment: Supplemental ranges: <140 mg/dL before meals <180 mg/dL all other times of the day Blood specimen (specimen) 09/13/2017 4:58 PM EST 09/13/2017 4:58 PM EST Christos Buchanan MD POINT OF CARE TEST O RDERABLES Performing Organization Address [facility] Co de Phone Number [facility] [place] [address] * ECHO LMTD W/O CONTRAST W LMTD SPEC DOPP COLOR DOPP (09/13/2017 2:44 PM EST) EF 65 [facility] SYSTEM Anatomical Region Laterality Modality Other 09/13/2017 Narrative 09/13/2017 3:16 PM EST Procedure: ?Transthoracic Echocardiogram Patient: ?LAQUITA Pop ? (Age): 1965(52y) Med Rec#: ? [id number] ?Sex: ?M ? [facility] Loc: ? [facility] ?Ht / Wt: ??180.3(cm)/101.6 Pt. Loc: ?Adult Floor ? BSA: ?2.21 Study Date: ?? 09/13/2017 ?Pt. Type: Outpatient Tape: ? 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 MV deceleration rojf401.5 ?msec ? MV A-wave Vmax ?0.5 ?m/sec [...] ? Mid-Inferior ?Normal ? Mid-Inferoseptal ?Normal ? [place]-Septal ? Normal ? [place]-Anterior ? Normal ? [place]-Lateral ?Normal ? [place]-Inferior ? Normal ? [place]-Tip ?Normal ? This report has been electronically signed by: Christos Buchanan M.D. ? 09/13/2017 15:16:25 Images reviewed and interpretation verified [facility] Cardiac Ultrasound [facility] Procedure Note Christos Buchanan MD - 09/13/2017 Procedure: Transthoracic Echocardiogram Patient: LAQUITA Pop DOB(Age): 1965(52y) Med Rec#: [id number] Sex: M Site Loc: [facility] Ht / Wt: 180.3(cm)/101.6 Pt. Loc: Adult Floor BSA: 2.21 Study Date: 09/13/2017 Pt. Type: Outpatient Tape: Referring: Christos Buchanan ([id number]) Reading: Christos Buchanan ([id number]) Sand Polisher: Meaghan Kim Diagnosis: *ICD-10-PCS Atherosclerotic heart disease of upper mattap[place] coronary artery without angina pectoris (I25.10) BP: [...] MV E-wave Vmax 0.6 m/sec MV deceleration asiu081.5 msec MV A-wave Vmax 0.5 m/sec MV [...] Normal Mid-Posterolateral Normal Mid-Inferior Normal Mid-Inferoseptal Normal [place]-Septal Normal [place]-Anterior Normal [place]-Lateral Normal [place]-Inferior Normal [place]-Tip Normal This report has been electronically signed by: Christos Buchanan M.D. 09/13/2017 15:16:25 Images reviewed and interpretation verified [facility] Christos Buchanan MD ECHO ORDERABLES * POCT Glucose (09/13/2017 11:32 AM EST) Glucose, POC 104 65 - 199 mg/dL [facility] Comment: Supplemental ranges: <140 mg/dL before meals <180 mg/dL all other times of the day Blood specimen (specimen) 09/13/2017 11:32 AM EST 09/13/2017 11:32 AM EST Christos Buchanan MD POINT OF CARE TEST O RDERABLES Performing Organization Address City/State/[facility] Co de Phone Number [facility] [place] [address] * CARDIAC CATHETERIZATION (09/13/2017 11:09 AM EST) Anatomical Region Laterality Modality Other Narrative 09/13/2017 11:33 AM EST ?[facility] ? Cardiac Catheterization/Intervention Report ? Patient Name: Romeo Coe. ? Procedure Date: 09/13/2017 ? A #: [id number] ? Primary Physician: Quinn, Agusto W ? Case #: [id number] ? File Name: [id number] ? Catheterization Order Number: [id number] ? [facility] ? Final Report [place], [place] ? Patient Name: ? Romeo A. Coe ? ID#: ?[id number] ? : ?1965 ? Procedure Date: ? [...] presented with: unstable angina (w/i 60 days). [place] ?Cardiovascular Society angina class was IV. This [...] Note Agusto Ball II, MD - 09/14/2017 [facility] Cardiac Catheterization/Intervention Report Patient Name: Romeo CoeNatalie Procedure Date: 09/13/2017 A #: [id number] Primary Physician: Agusto Ball Case #: [id number] File Name: [id number] Catheterization Order Number: [id number] [facility] FinalReport [place], [place] Patient Name: Romeo Coe ID#:[id number] :1965 Procedure Date: September 13, 2017 Case [...] presented with: unstable angina (w/i 60 days). [place] [employer] Society angina class was IV. This [...] 12 Lead (09/13/2017 7:49 AM EST) Pathologist [facility] Ventricular rate 72 BPM MUSE SYSTEM Atrial Rate 72 BPM MUSE SYSTEM P-R Interval 138 ms MUSE SYSTEM QRS Duration 86 ms MUSE SYSTEM Q-T Interval 380 ms MUSE SYSTEM QTC Calculated (Bezet) 416 ms MUSE SYSTEM Calculated P Trent 5 degrees MUSE SYSTEM Calculated R Trent 23 degrees MUSE SYSTEM Calculated T Trent 28 degrees MUSE SYSTEM INTERPRETATION Normal sinus rhythm Normal ECG When compared with ECG of 12-SEP-2017 12:19, No significant change was found Confirmed by MD Segundo, Panda Leyva ([id number]) on 09/14/2017 9:09:15 AM MUSE SYSTEM 09/13/2017 7:49 AM EST 09/14/2017 9:09 AM EST Christos Buchanan MD ECG ORDERABLES MUSE SYSTEM * POCT Glucose (09/13/2017 7:24 AM EST) Pathologist [facility] Glucose, POC 152 65 - 199 mg/dL [facility] Comment: Supplemental ranges: <140 mg/dL before meals <180 mg/dL all other times of the day Blood specimen (specimen) 09/13/2017 7:24 AM EST 09/13/2017 7:24 AM EST Christos Buchanan MD POINT OF CARE TEST O RDERABLES [facility] [place] [address] * (ABNORMAL) BMP w/fasting Glucose (09/13/2017 6:32 AM EST) Glucose Fasting 157(H) 65 - 99 mg/dL [facility] [...] of Diabetes Mellitus, Position Statement from the [place] Diabetes [employer]. ??Diabetes Care, Volume 33, Supplement 1, Aug 2009 Blood Urea Nitrogen 11 10 - 20 mg/dL [facility] Creatinine 0.99 0.80 - 1.50 mg/dL [facility] Sodium 142 135 - 145 mmol/L [facility] Potassium 3.7 3.5 - 5.0 mmol/L [facility] Carbon Dioxide 21(L) 22 - 31 mmol/L [facility] Anion Gap 15 5 - 15 mmol/L [facility] Calcium 9.4 8.5 - 10.5 mg/dL [facility] Est Glomerular Filtration Rate >60 >=60 [facility] Comment: The reported eGFR should be multiplied by 1.2 for patients. The MDRD is not an appropriate measure of renal function for patients with body mass extremes or in patients with acute kidney failure. http://[employer]/DHnkdep http://[employer]/[facility] Blood specimen (specimen) 09/13/2017 6:32 AM EST 09/13/2017 6:41 AM EST Narrative Resulting Agency Comment Spec In Lab Christos Buchanan MD CHEMISTRY ORDERABLES Performing Organization Address [facility] Phone Number [facility] [place] [address] * (ABNORMAL) APTT (09/13/2017 6:32 AM EST) Partial Thromboplastin Time 113(H) 25 - 35 sec [facility] Comment: The recommended therapeutic range for full dose, unfractionated heparin at [facility] is 80 ? 114 seconds. The use of the anti-Xa (heparin) level rather than the PTT is recommended for monitoring anticoagulation intensity in critically ill patients receiving unfractionated heparin by continuous IV infusion. Blood specimen (specimen) 09/13/2017 6:32 AM EST 09/13/2017 6:41 AM EST Narrative Resulting Agency Comment Spec In Lab Christos Buchanan MD HEMATOLOGY ORDERABLE S Performing Organization Address [facility] Co de Phone Number [facility] [place] [address] * Differential, Automated (09/13/2017 6:32 AM EST) Neutrophil % 64.9 % [facility] Neutrophil Absolute 5.94 1.70 - 6.10 x10(3)/mcL [facility] Lymph % 24.7 % [facility] Lymphocytes Abs 2.3 0.9 - 3.2 x10(3)/[facility] Monocyte % 5.3 % [facility] Monocyte Abs 0.5 0.3 - 0.9 x10(3)/[facility] Eos % 4.0 % [facility] Eosinophils Abs 0.4 0.0 - 0.4 x10(3)/[facility] Basophil % 0.7 % [facility] Baso Absolute 0.1 0.0 - 0.1 x10(3)/[facility] Immature Gran % 0.40 % [facility] Comment: Immature granulocytes(IG's)percentage and absolute count will include metamyelocytes, myelocytes, and promyelocytes. Blood smears from CBCs yielding IG's will be scanned manually for concordance. If this scan disagrees with the automated IG or if promyelocytes are noted, a manual differential will be performed. Immature Gran Absolute 0.04 0.00 - 0.04 x10(3)/[facility] Blood specimen (specimen) 09/13/2017 6:32 AM EST 09/13/2017 6:41 AM EST Narrative Resulting Agency Comment Spec In Lab Christos Buchanan MD HEMATOLOGY ORDERABLE S [facility] [place] [address] * Hemogram (09/13/2017 6:32 AM EST) White Blood Cell 9.2 4.0 - 9.5 x10(3)/[facility] Red Blood Cell 5.29 4.58 - 5.54 x10(6)/[facility] Hemoglobin 15.4 13.7 - 16.5 gm/dL [facility] Hematocrit 44.9 40.5 - 48.5 % [facility] Mean Cell Volume 84.9 82.9 - 93.1 fL [facility] Mean Cell Hemoglobin 29.1 27.5 - 32.1 pg [facility] Mean Cell Hemoglobin Concentration 34.3 32.0 - 35.7 gm/dL [facility] Platelet 186 145 - 357 x10(3)/[facility] RDW Standard Deviation 42.9 36.0 - 45.0 fL [facility] RDW coefficient of variation 13.8 11.4 - 13.8 % [facility] Mean Platelet Volume 10.3 7.6 - 12.9 fL [facility] NRBC% auto 0.0 % [facility] NRBC Absolute 0.000 0.000 - 0.000 x10(3)/[facility] Blood specimen (specimen) 09/13/2017 6:32 AM EST 09/13/2017 6:41 AM EST Narrative Resulting Agency Comment Spec In Lab Christos Buchanan MD HEMATOLOGY ORDERABLE S Performing Organization Address [facility] Co de Phone Number [facility] [place] [address] * Blood culture (09/13/2017 6:32 AM EST) Blood Culture No growth at 5 days. [facility] Blood specimen (specimen) 09/13/2017 6:32 AM EST 09/13/2017 7:17 AM EST Comment:L FOREARM Narrative Resulting Agency Comment Spec In Lab Christos Buchanan MD MICROBIOLOGY - BLOOD ORDERABLES Performing Organization Address [facility] Co de Phone Number [facility] [place] [address] * Prothrombin Time (09/13/2017 6:32 AM EST) Prothrombin Time 13.8 11.8 - 14.0 sec [facility] International Normalization Ratio 1.1 0.9 - 1.1 [facility] Comment: An INR <2.0 [...] MD HEMATOLOGY ORDERABLE S Performing Organization Address City/[facility]/ZIP Co de Phone Number [facility] [place] [address] * Magnesium (09/13/2017 6:32 AM EST) Magnesium 0.84 0.69 - 1.07 mmol/L [facility] Blood specimen (specimen) 09/13/2017 6:32 AM EST 09/13/2017 6:41 AM EST Narrative Resulting Agency Comment Spec In Lab Christos Buchanan MD CHEMISTRY ORDERABLES Performing Organization Address [facility] Co de Phone Number [facility] [place] [address] * Triglyceride (09/13/2017 6:32 AM EST) Triglyceride 153 <=199 mg/dL [facility] Blood specimen (specimen) 09/13/2017 6:32 AM EST 09/13/2017 6:41 AM EST Narrative Resulting Agency Comment Spec In Lab Christos Buchanan MD CHEMISTRY ORDERABLES Performing Organization Address [facility] Co de Phone Number [facility] [place] [address] * HDL/Cholesterol Profile (09/13/2017 6:32 AM EST) Cholesterol, Total 162 <=239 mg/dL [facility] HDL Cholesterol 44 >=40 mg/dL [facility] Cholesterol/HDL Ratio 3.7 ratio [facility] Chol/HDL Interpretation See Note [facility] Comment: Lipid management should be guided by a patient? s ASCVD risk, goals and preferences. ACC/AHA Guidelines recommend high intensity statin if clinical ASCVD or LDL greater than or equal to 190 mg/dL. http://Floop.com/PLR-ARE-Fttwozynl Measure LDL if Total Cholesterol minus HDL Cholesterol is greater than 220 mg/dL. Adults aged 40-75 with LDL 70-189 mg/dL should have their 10 year ASCVD risk estimated with the ACC/AHA ASCVD risk solar sales estimator http://tools.acc.org/BBZZX-Mtrq-Sytqcxsfw/ Statin should be discussed if risk greater [...] Buchanan MD CHEMISTRY ORDERABLES Performing Organization Address [facility] Co de Phone Number [facility] [place] [address] * LDL Cholesterol, Direct (09/13/2017 6:32 AM EST) LDL Cholesterol, Direct 102 <=190 mg/dL [facility] Blood specimen (specimen) 09/13/2017 6:32 AM EST 09/13/2017 6:41 AM EST Narrative Resulting Agency Comment Spec In Lab Christos Buchanan MD CHEMISTRY ORDERABLES Performing Organization Address [facility] Co de Phone Number [facility] [place] [address] * (ABNORMAL) Hemoglobin A1c (09/13/2017 6:32 AM EST) Hemoglobin A1c 6.4(H) 4.3 - 5.6 % [facility] 1, S67-74 Estimated Average Glucose 137 mg/dL [facility] [...] into estimated average glucose values. ??Diabetes Care 2008:31(8):9451-8044. Blood specimen (specimen) 09/13/2017 6:32 AM EST 09/13/2017 6:41 AM EST Narrative Resulting Agency Comment Spec In Lab Christos Buchanan MD CHEMISTRY ORDERABLES [facility] [place] [address] * pro-Brain Natriuretic Peptide (09/13/2017 6:32 AM EST) NT-proBNP 15 <=125 pg/mL [facility] Blood specimen (specimen) 09/13/2017 6:32 AM EST 09/13/2017 6:41 AM EST Narrative Resulting Agency Comment Spec In Lab Christos Buchanan MD CHEMISTRY ORDERABLES Performing Organization Address [facility] de Phone Number [facility] [place] [address] * (ABNORMAL) APTT (09/13/2017 12:13 AM EST) Pathologist [facility] Partial Thromboplastin Time 50(H) 25 - 35 sec [facility] Comment: The recommended therapeutic range for full dose, unfractionated heparin [place] [facility] is 80 ? 114 seconds. The use of the anti-Xa (heparin) level rather than the PTT is recommended for monitoring anticoagulation intensity in critically ill patients receiving unfractionated heparin by continuous IV infusion. Blood specimen (specimen) 09/13/2017 12:13 AM EST 09/13/2017 12:42 AM EST Narrative Resulting Agency Comment Spec In Lab Christos Buchanan MD HEMATOLOGY ORDERABLE S Performing Organization Address [facility] de Phone Number [facility] [place] [address] * Cardiac Enzymes (LEB/CGP) (09/13/2017 12:13 AM EST) Troponin-T <0.01 0.00 - 0.00 ng/mL [facility] Comment: The 99th percentile for Troponin T is less than 0.01 ng/mL, any detectable cTnT concentration using this assay should be considered elevated. According to the third universal definition of myocardial infarction the following criteria with a clinical presentation consistent with acute myocardial ischemia meets the diagnosis for a myocardial infarction ([place]). Detection of a rise and/or fall of cTnT, with at least one value greater than the 99th percentile (> or = 0.01) and with at least one of the following ?? Symptoms of ischemia ?? New or presumed new significant BF-oecelna-A wave (ST-T) changes or new left bundle [...] additional sample may be indicated. Reference: Third [place] Definition of Myocardial Infarction. Journal of the [place] [employer] 2012;60:1581-98 Creatine Kinase 55 0 - 200 unit/L [facility] Blood specimen (specimen) 09/13/2017 12:13 AM EST 09/13/2017 12:42 AM EST Narrative Resulting Agency Comment Spec In Lab Christos Buchanan MD CHEMISTRY ORDERABLES Performing Organization Address [facility] Co de Phone Number [facility] [place] [address] * SCAN DOC: CARDIAC CATH (09/13/2017 12:00 [...] CARE TEST O RDERABLES Performing Organization Address [facility] Co de Phone Number [facility] [place] [address] * Cardiac Enzymes (LEB/CGP) (09/12/2017 6:53 PM EST) Troponin-T <0.01 0.00 - 0.00 ng/mL [facility] Comment: The 99th percentile for Troponin T is less than 0.01 ng/mL, any detectable cTnT concentration using this assay should be considered elevated. According to the third universal definition of myocardial infarction the following criteria with a clinical presentation consistent with acute myocardial ischemia meets the diagnosis for a myocardial infarction ([place]). Detection of a rise and/or fall of cTnT, with at least one value greater than the 99th percentile (> or = 0.01) and with at least one of the following ?? Symptoms of ischemia ?? New or presumed new significant KJ-joinwuu-L wave (ST-T) changes or new left bundle [...] additional sample may be indicated. Reference: Third [place] Definition of Myocardial Infarction. Journal of the [place] College [employer]iology 2012;60:1581-98 Creatine Kinase 57 0 - 200 unit/L [facility] Blood specimen (specimen) 09/12/2017 6:53 PM EST 09/12/2017 7:02 PM EST Narrative Resulting Agency Comment Spec In Lab Christos Buchanan MD CHEMISTRY ORDERABLES Performing Organization Address City/State/[facility] Co de Phone Number [facility] [place] [address] * XR Chest PA & Lateral (Generic) [...] abdomen. IMPRESSION No acute cardiopulmonary disease. Buster Doherty DO IM DX ORDERABLES * Prothrombin Time (09/12/2017 1:29 PM EST) Prothrombin Time 13.7 11.8 - 14.0 sec [facility] International Normalization Ratio 1.1 0.9 - 1.1 [facility] Comment: An INR <2.0 [...] Lab Alejandro Blair MD HEMATOLOGY ORDERAB LES [facility] [place] [address] * APTT (09/12/2017 1:29 PM EST) Partial Thromboplastin Time 28 25 - 35 sec [facility] Comment: The recommended therapeutic range for full dose, unfractionated heparin at [facility] is 80 ? 114 seconds. The use [...] MD HEMATOLOGY ORDERAB LES Performing Organization Address [facility] Co de Phone Number [facility] [place] [address] * pro-Brain Natriuretic Peptide (09/12/2017 1:29 PM EST) NT-proBNP 20 <=125 pg/mL [facility] Blood specimen (specimen) Venous Draw / Unknown 09/12/2017 1:29 PM EST 09/12/2017 1:35 PM EST Narrative Resulting Agency Comment Spec In Lab Alejandro Blair MD CHEMISTRY ORDERABL ES Performing Organization Address [facility] Co de Phone Number [facility] [place] [address] * Gold Tube HOLD (09/12/2017 1:29 PM EST) Gold Hold Sample in lab. [facility] Blood specimen (specimen) Venous Draw / Unknown 09/12/2017 1:29 PM EST 09/12/2017 1:34 PM EST Alejandro Blair MD CHEMISTRY ORDERABL ES Performing Organization Address [facility] Co de Phone Number [facility] [place] [address] * Blue Tube HOLD (09/12/2017 1:29 PM EST) Blue Hold Sample in lab. [facility] Blood specimen (specimen) Venous Draw / Unknown 09/12/2017 1:29 PM EST 09/12/2017 1:34 PM EST Alejandro Blair MD HEMATOLOGY ORDERAB LES Performing Organization Address City/[facility]/ZIP Co de Phone Number [facility] [place] [address] * Differential, Automated (09/12/2017 1:29 PM EST) Neutrophil % 57.0 % [facility] Neutrophil Absolute 5.07 1.70 - 6.10 x10(3)/[facility] Lymph % 29.7 % [facility] Lymphocytes Abs 2.6 0.9 - 3.2 x10(3)/[facility] Monocyte % 7.8 % [facility] Monocyte Abs 0.7 0.3 - 0.9 x10(3)/[facility] Eos % 4.2 % [facility] Eosinophils Abs 0.4 0.0 - 0.4 x10(3)/[facility] Basophil % 0.8 % [facility] Baso Absolute 0.1 0.0 - 0.1 x10(3)/[facility] Immature Gran % 0.50 % [facility] Comment: Immature granulocytes(IG's)percentage and absolute count will include metamyelocytes, myelocytes, and promyelocytes. Blood smears from CBCs yielding IG's will be scanned manually for concordance. If this scan disagrees with the automated IG or if promyelocytes are noted, a manual differential will be performed. Immature Gran Absolute 0.04 0.00 - 0.04 x10(3)/[facility] Blood specimen (specimen) 09/12/2017 1:29 PM EST 09/12/2017 1:34 PM EST Narrative Resulting Agency Comment Spec In Lab Alejandro Blair MD HEMATOLOGY ORDERAB LES [facility] [place] [address] * Hemogram (09/12/2017 1:29 PM EST) [facility] White Blood Cell 8.9 4.0 - 9.5 x10(3)/[facility] Red Blood Cell 5.07 4.58 - 5.54 x10(6)/[facility] Hemoglobin 14.8 13.7 - 16.5 gm/dL [facility] Hematocrit 43.3 40.5 - 48.5 % [facility] Mean Cell Volume 85.4 82.9 - 93.1 fL [facility] Mean Cell Hemoglobin 29.2 27.5 - 32.1 pg [facility] Mean Cell Hemoglobin Concentration 34.2 32.0 - 35.7 gm/dL [facility] Platelet 208 145 - 357 x10(3)/[facility] RDW Standard Deviation 42.5 36.0 - 45.0 [facility] RDW coefficient of variation 13.7 11.4 - 13.8 % [facility] Mean Platelet Volume 10.4 7.6 - 12.9 [facility] NRBC% auto 0.0 % [facility] NRBC Absolute 0.000 0.000 - 0.000 x10(3)/[facility] Blood specimen (specimen) 09/12/2017 1:29 PM EST 09/12/2017 1:34 PM EST Narrative Resulting Agency Comment Spec In Lab Alejandro Blair MD HEMATOLOGY ORDERAB LES [facility] [place] [address] * (ABNORMAL) Basic Metabolic Panel (non-fasting) (09/12/2017 1:29 PM EST) [facility] Glucose 113 65 - 199 mg/dL [facility] Comment:Diabetes: >=200 mg/d L plus symptoms Blood Urea Nitrogen 10 10 - 20 mg/dL [facility] Creatinine 0.96 0.80 - 1.50 mg/dL [facility] Sodium 143 135 - 145 mmol/L [facility] Potassium 3.9 3.5 - 5.0 mmol/L [facility] Anion Gap 17(H) 5 - 15 mmol/L [facility] Calcium 9.2 8.5 - 10.5 mg/dL [facility] Est Glomerular Filtration Rate >60 >=60 [facility] Comment: The reported eGFR should be multiplied by 1.2 for patients. The MDRD is not an appropriate measure of renal function for patients with body mass extremes or in patients with acute kidney failure. http://Floop.[employer]/DHnkdep http://[employer]/DHMCnkf Blood specimen (specimen) 09/12/2017 1:29 PM EST 09/12/2017 1:34 PM EST Narrative Resulting Agency Comment Spec In Lab Alejandro Blair MD CHEMISTRY ORDERABL ES [facility] [place] [address] * Cardiac Enzymes (LEB/CGP) (09/12/2017 1:29 PM EST) Troponin-T <0.01 0.00 - 0.00 ng/mL [facility] Comment: The 99th percentile for Troponin T is less than 0.01 ng/mL, any detectable cTnT concentration using this assay should be considered elevated. According to the third universal definition of myocardial infarction the following criteria with a clinical presentation consistent with acute myocardial ischemia meets the diagnosis for a myocardial infarction ([place]). Detection of a rise and/or fall of cTnT, with at least one value greater than the 99th percentile (> or = 0.01) and with at least one of the following ?? Symptoms of ischemia ?? New or presumed new significant PR-kspsspi-C wave (ST-T) changes or new left bundle [...] additional sample may be indicated. Reference: Third [place] Definition of Myocardial Infarction. Journal of the [place] College [employer]iology 2012;60:1581-98 Creatine Kinase 65 0 - 200 unit/L [facility] Blood specimen (specimen) 09/12/2017 1:29 PM EST 09/12/2017 1:34 PM EST Narrative Resulting Agency Comment Spec In Lab Alejandro Blair MD CHEMISTRY ORDERABL ES [facility] [place] [address] * EKG 12 Lead (09/12/2017 12:19 PM EST) Ventricular rate 82 BPM MUSE SYSTEM Atrial Rate 82 BPM MUSE SYSTEM P-R Interval 136 ms MUSE SYSTEM QRS Duration 80 ms MUSE SYSTEM Q-T Interval 358 ms MUSE SYSTEM QTC Calculated (Bezet) 418 ms MUSE SYSTEM Calculated P Trent 13 degrees MUSE SYSTEM Calculated R Trent 33 degrees MUSE SYSTEM Calculated T [place] 34 degrees MUSE SYSTEM INTERPRETATION Normal sinus [...] PRN, Starting on 09/13/17 at 1014, Until [place] 09/13/17 at 1015, Cath (Intra-Procedure), Routine Given 09/13/2017 10:14 AM EST 25 mcg fentaNYL 50 mcg/mL multi-dose injection ONCE PRN, Starting on 09/13/17 at 1028, Until 09/13/17 at 1037, Intra-Operative (Intra-Procedure), Routine Given 09/13/2017 10:28 AM EST 25 mcg fentaNYL 50 mcg/mL multi-dose injection ONCE PRN, Starting on 09/13/17 at 1105, Until [place] 09/13/17 at 1107, Cath (Intra-Procedure), Routine Given 09/13/2017 11:05 AM EST 25 mcg gabapentin (NEURONTIN) capsule 600 mg 600 mg, Oral, 2 TIMES DAILY BEFORE BREAKFAST AND LUNCH, First dose (after last modification) on [place] 09/13/17 at 0730, Until Discontinued, Routine Given [...] - Reason: Transfer to a Procedural area)1134 ([facility] Unhold - Provider: Admin Adt) 0830 (Given - Provider: Rupal Munguia RN) buPROPion (WELLBUTRIN SR or ZYBAN) SR tablet 150 mg 150 mg, Oral, 2 TIMES DAILY, First dose on 09/12/17 at 2100, Until Discontinued, DO NOT CRUSH OR OPEN, Routine 2030 (Given - Provider: Keisha Mae RN) 0850 (Given - Provider: Rupal Munguia RN)1002 ([facility] Hold - Provider: Admin Adt - Reason: Transfer to a Procedural area)1134 ([facility] Unhold - Provider: Admin Adt)2019 (Given - Provider: Keisha Mae RN) 0830 (Given - Provider: Rupal Munguia RN) clopidogrel (PLAVIX) tablet 75 mg 75 mg, Oral, DAILY, First dose on 09/13/17 at 0900, Until Discontinued, Routine 0850 (Given - Provider: Rupal Munguia RN)1002 ([facility] Hold - Provider: Admin Adt - Reason: Transfer to a Procedural area)1134 ([facility] Unhold - Provider: Admin Adt) 0830 (Given - Provider: Rupal Munguia RN) DULoxetine (CYMBALTA) capsule 60 mg 60 mg, Oral, 2 TIMES DAILY, First dose on 09/12/17 at 2100, Until Discontinued, Routine 2030 (Given - Provider: Keisha Mae RN) 0851 (Given - Provider: Rupal Munguia RN)1002 ([facility] Hold - Provider: Admin Adt - Reason: Transfer to a Procedural area)1134 ([facility] Unhold - Provider: Admin Adt)2020 (Given - Provider: Keisha Mae RN) 0830 (Given - Provider: Rupal Munguia RN) gabapentin (NEURONTIN) capsule 600 mg 600 mg, Oral, 2 TIMES DAILY BEFORE BREAKFAST AND LUNCH, First dose (after last modification) on 09/13/17 at 0730, Until Discontinued, Routine 0800 (Given - Provider: Rupal Munguia RN)1002 ([facility] Hold - Provider: Admin Adt - Reason: Transfer to a Procedural area)1130 (Automatically Held - Provider: Admin Adt)1134 ([facility] Unhold - Provider: Admin Adt)1323 (Given - Provider: Rupal Munguia RN - Comment: late lunch) 0800 (Given - Provider: Rupal Munguia RN) gabapentin (NEURONTIN) capsule 900 mg 900 mg, Oral, NIGHTLY, First dose on 09/12/17 at 2100, Until Discontinued, Routine 2030 (Given - Provider: Keisha Mae RN) 1002 ([facility] Hold - Provider: Admin Adt - Reason: Transfer to a Procedural area)1134 ([facility] Unhold - Provider: Admin Adt)2019 (Given - [...] - Reason: Transfer to a Procedural area)1134 ([facility] Unhold - Provider: Admin Adt) isosorbide mononitrate [...] 0853 (Given - Provider: Rupal Munguia, VERO)1002 ([facility] Hold - Provider: Admin Adt - Reason: Transfer to a Procedural area)1134 ([facility] Unhold - Provider: Admin Adt) 0831 (Given - Provider: Rupal Munguia, VERO) meTOPROLOL tartrate (LOPRESSOR) tablet 50 mg 50 mg, Oral, 2 TIMES DAILY, First dose on 09/12/17 at 2100, Until Discontinued, Routine 2030 (Given - Provider: Keisha Mae, VERO) 0852 (Given - Provider: Rupal Munguia, VERO)1002 ([facility] Hold - Provider: Admin Adt - Reason: Transfer to a Procedural area)1134 ([facility] Unhold - Provider: Admin Adt)2020 (Given - [...] Rupal Munguia RN - Reason: Patient/family refused)1002 ([facility] Hold - Provider: Admin Adt - Reason: Transfer to a Procedural area)1134 ([facility] Unhold - Provider: Admin Adt) 0900 (Not [...] - Reason: Transfer to a Procedural area)1134 ([facility] Unhold - Provider: Admin Adt)2099 (Not Given [...] 0852 (Given - Provider: Rupal Munguia RN)1002 ([facility] Hold - Provider: Admin Adt - Reason: Transfer to a Procedural area)1134 ([facility] Unhold - Provider: Admin Adt)2020 (Given - Provider: Keisha Mae, VERO) 0830 (Given - Provider: Rupal Munguia, VERO) pramipexole (MIRAPEX) tablet 0.5 mg 0.5 mg, Oral, NIGHTLY, First dose on 09/12/17 at 2100, Until Discontinued, Routine 2030 (Given - Provider: Keisha Mae RN) 1002 ([facility] Hold - Provider: Admin Adt - Reason: Transfer to a Procedural area)1134 ([facility] Unhold - Provider: Admin Adt)2019 (Given - Provider: Keisha Mae RN) rosuvastatin (CRESTOR) tablet 20 mg 20 mg, Oral, EVERY EVENING, First dose on 09/12/17 at 1800, Until Discontinued, Routine 1818 (Given - Provider: Mariela So RN) 1002 (OCT Hold - Provider: Admin Adt - Reason: Transfer to a Procedural area)1134 ([facility] Unhold - Provider: Admin Adt)1639 (Given - [...] - Reason: Transfer to a Procedural area)1134 ([facility] Unhold - Provider: Admin Adt)2100 (Not Given [...] (Given - Provider: Keisha Mae RN) 1002 ([facility] Hold - Provider: Admin Adt - Reason: Transfer to a Procedural area)1134 ([facility] Unhold - Provider: Admin Adt)2019 (Given - [...] RN)0809 (Given - Provider: Rupal Munguia RN)1002 ([facility] Hold - Provider: Admin Adt - Reason: Transfer to a Procedural area)1134 ([facility] [facility] [place] [facility] - Provider: Admin Adt) oxyCODONE (ROXICODONE) immediate release tablet 10 mg 10 mg, Oral, 4 TIMES DAILY PRN, Starting on 09/12/17 at 1735, Until 09/14/17 at 1312, pain unresponsive to tylenol, Routine 1002 ([facility] Hold - Provider: Admin Adt - Reason: Transfer to a Procedural area)1134 ([facility] Unhold - Provider: Admin Adt)2024 (Given - [...] provided on this medication record., Routine 1002 ([facility] Hold - Provider: Admin Adt - Reason: Transfer to a Procedural area)1134 ([facility] Unhold - Provider: Admin Adt) sodium chloride [...] UA) documented in this encounter Care Teams Cryptologic Support Specialist Relationship Specialty Start Date End Date Coni Lim MD [address] [place] [address] PCP - General 07/16/10 documented as of this encounter
--- OUTSIDE RECORDS SUMMARY | 2024-04-30 18:21 | XMS_ITS | Encounter Summary ---
Author Organization [facility] Address [facility] [place] [address] Care Team Providers Care Software Applications Developer Name Role Phone Coni Lim MD Primary Care Provider [phone] Encounter Details Date Type Department Care Team (Late st Contact Info) Description 11/26/2016 Telephone Cardiology at [address] [phone] Roque Paulson MD [facility] [place] [address] Social History Tobacco Use Types Packs/Day Years [...] PM Referring Provider: Dr. Kimball Patient Location: [facility] per OSH: 51 y/o old with [...] on filedocumented in this encounter Care Teams Software Applications Developer Relationship Specialty Start Date End Date Coni Lim MD [address] [place] [address] PCP - General 07/16/10 documented as of this encounter
--- OUTSIDE RECORDS SUMMARY | 2024-04-30 18:22 | XMS_ITS | Encounter Summary ---
Author Organization [facility] [place] [address] Care Team Providers Care Professional Bass Fisherman Name Role Phone Coni Lim MD Primary Care Provider [phone] Encounter Details Date Type Department Care Team (Late st Contact Info) Description 07/25/2015 Telephone Cardiology at [address] [address] Yessy Pugh Social History Tobacco Use Types [...] a week. I havemade Aldair Patel, the advertising operations coordinator aware. documented in this encounter Plan of Treatment Not on file documented as of this encounter Visit Diagnoses Not on filedocumented in this encounter Care Teams Professional Bass Fisherman Relationship Specialty Start Date End Date Coni Lim MD [address] [place] [address] PCP - General 07/16/10 documented as of this encounter
--- OUTSIDE RECORDS SUMMARY | 2024-04-30 18:22 | XMS_ITS | Encounter Summary ---
Author Organization [facility] Address [facility] [place] [address] Care Team Providers Care Lidding Machine Operator Name Role Phone Coni Lim MD Primary Care Provider [phone] Reason for Visit * Reason Onset Date Comments Medication Refill 08/10/2013 Encounter Details Date Type Department Care Team (Late st Contact Info) Description 08/10/2013 Refill Cardiology at [address] [phone] Turner Tan MD [facility] [place] [address] Medication Refill Social History Tobacco Use Types [...] on filedocumented in this encounter Care Teams Lidding Machine Operator Relationship Specialty Start Date End Date Coni Lim MD [address] [place] [address] PCP - General 07/16/10 documented as of this encounter
--- OUTSIDE RECORDS SUMMARY | 2024-04-30 18:22 | XMS_ITS | Encounter Summary ---
Author Organization [facility] [place] [address] Care Team Providers Care Dry Ice Machine Operator Name Role Phone Coni Lim MD Primary Care Provider [phone] Encounter Details Date Type Department Care Team (Late st Contact Info) Description 07/27/2014 Orders Only Cardiology at [address] [phone] Oneil Newsome RN Research exam (Primary Dx) [...] trial documented in this encounter Care Teams Dry Ice Machine Operator Relationship Specialty Start Date End Date Coni Lim MD [address] [place] [address] PCP - General 07/16/10 documented as of this encounter
--- OUTSIDE RECORDS SUMMARY | 2024-04-30 18:22 | XMS_ITS | Encounter Summary ---
Author Organization [facility] Address [facility] [place] [address] Care Team Providers Care Curb Attendant Name Role Phone Coni Lim MD Primary Care Provider [phone] Encounter Details Date Type Department Care Team (Latest Contact Info) Description 07/30/2013 5:12 AM EST - 07/30/2013 11:59 PM [facility] Hospital Encounter ZLEB 4A [facility] [place] [address] Edy Trimble MD [facility] [place] [address] Discharge Disposition: Home Social History Tobacco Use [...] Kinase 54 0 - 200 unit/L CERNER [employer] CK-MB 1.8 0.0 - 5.0 mcg/L CERNER MILLENNIUM CKMB Index 3.3 0.0 - 5.0 mcg/u CERNER [employer] Blood specimen (specimen) 07/30/2013 6:00 AM EST 07/30/2013 6:32 AM EST Narrative Resulting Agency Comment Spec In Lab Edy Damon MD CHEMISTRY ORDERABLES Performing Organization Address City/State/[facility] Co tn Phone Number [facility] documented in this encounter Visit Diagnoses Not on filedocumented in this encounter Care Teams Curb Attendant Relationship Specialty Start Date End Date Coni Lim MD [address] [place] [address] PCP - General 07/16/10 documented as of this encounter
--- OUTSIDE RECORDS SUMMARY | 2024-04-30 18:22 | XMS_ITS | Encounter Summary ---
Author Organization [facility] Address [facility] [place] [address] Care Team Providers Care Textile Artist Name Role Phone Coni Lim MD Primary Care Provider [phone] Encounter Details Date Type Department Care Team (Latest Contact Info) Description 07/29/2013 11:02 AM EST - 07/29/2013 11:59 PM [facility] Hospital Encounter ZLEB 4A [facility] [place] [address] Edy Trimble MD [facility] [place] [address] Discharge Disposition: Home Social History Tobacco Use [...] CK-MB Study (07/29/2013 6:05 PM EST) Pathologist [facility] Creatine Kinase 57 0 - 200 unit/L [facility] [employer] CK-MB 1.4 0.0 - 5.0 mcg/L [facility] [employer] CKMB Index 2.5 0.0 - 5.0 mcg/u CERNER MILLENNIUM Blood specimen (specimen) 07/29/2013 6:05 PM EST 07/29/2013 6:33 PM EST Narrative Resulting Agency Comment Spec In Lab Edy Damon MD CHEMISTRY ORDERABLES Performing Organization Address City/[facility] Co de Phone Number CERANNABEL JENSENENNIUM * [...] Damon MD CHEMISTRY ORDERABLES Performing Organization Address City/[facility] Co de Phone Number [facility] CLE[employer]SI[employer] documented in this encounter Visit Diagnoses Not on filedocumented in this encounter Care Teams Textile Artist Relationship Specialty Start Date End Date Coni Lim MD [address] [place] [address] PCP - General 07/16/10 documented as of this encounter
--- OUTSIDE RECORDS SUMMARY | 2024-04-30 18:22 | XMS_ITS | Encounter Summary ---
Author Organization [place] [address] Care Team Providers Care Documentation Specialist Name Role Phone Coni Lim MD Primary Care Provider [phone] Encounter Details Date Type Department Care Team (Late st Contact Info) Description 08/02/2015 Telephone Cardiology at [address] [phone] Destin Patel, RN Social History Tobacco Use [...] about his recent admission for stroke at [facility], for which he still has some [...] on filedocumented in this encounter Care Teams Documentation Specialist Relationship Specialty Start Date End Date Coni Lim MD [address] [place] [address] PCP - General 07/16/10 documented as of this encounter
--- OUTSIDE RECORDS SUMMARY | 2024-04-30 18:22 | XMS_ITS | Encounter Summary ---
Author Organization [facility] Address [facility] [place] [address] Care Team Providers Care Blockmason Name Role Phone Coni Lim MD Primary Care Provider [phone] Encounter Details Date Type Department Care Team (Late st Contact Info) Description 07/26/2013 Orders Only Cardiology at [address] [phone] Taylor Dickinson, PA [facility] [place] [address] ASCVD (arteriosclerotic cardiovascular disease) (Primary Dx) Social [...] Provider, Scanning - 07/29/2013 11:39 AM EST Jaun Ball MD CARDIAC CATH ORDERAB LES documented in this encounter Visit Diagnoses Diagnosis ASCVD (arteriosclerotic cardiovascular disease)- Primary Unspecified cardiovascular disease ASCVD (arteriosclerotic cardiovascular disease) Unspecified cardiovascular disease documented in this encounter Care Teams Blockmason Relationship Specialty Start Date End Date Coni Lim MD [address] [place] [address] PCP - General 07/16/10 documented as of this encounter
--- OUTSIDE RECORDS SUMMARY | 2024-04-30 18:22 | XMS_ITS | Encounter Summary ---
Author Organization [facility] Address [facility] [place] [address] Care Team Providers Care Lockstitch Front Maker Name Role Phone Sarita Lim MD Primary Care Provider [phone] Encounter Details Date Type Department Care Team (Late st Contact Info) Description 07/29/2013 8:00 AM EST - 07/29/2013 9:00 AM EST Surgery [place] [id number] Edy Trimble MD [facility] [place] [address] CARDIAC CATHETERIZATION Social History Tobacco Use Types [...] encounter Discharge Instructions * Patient Instructions* Turner aTn - 07/29/2013 11:24 AM EST Anti-coagulation follow up: N/A Call your doctor if: Chest pain, dyspnea, pain or swelling in legs occurs. If you have non-emergent questions between now and the time of your follow up appointments: During 8am-5pm Thursday through Thursday call [phone] to speak with a nurse in the cardiology clinic All other times call [phone] and ask to speak to the medical assistant cardiology senior market intelligence consultant. Return to work: One week Driving: No driving for 48 hours after catheterization. Follow up Appointments: PCP Call for appointment in 1-2 weeks. Expense Analyst You should be seen in 3-4 weeks for follow up. Please call for appointment Home oxygen therapy: N/A Arrangements for VNA/home care: none * Attachments The following attachments cannot be sent through Care Everywhere. * CARDIAC REHABILITATION: AFTER YOUR VISIT (FAROESE) * CHEST PAIN (ANGINA): AFTER YOUR VISIT (FAROESE) * PERCUTANEOUS CORONARY INTERVENTION: WHAT TO EXPECT AT HOME (FAROESE) documented in this encounter Medications at Time [...] the Treatment of Subjects with de abby Gambell Coronary Artery Lesions PI: Edy Trimble MD Pager #:[phone] Research Coordinators: GLADYS Rosenbaum, BA, DIRECTOR APPAREL Pager #:[phone] Oneil Newsome RN Pager #: [phone] Purpose: The pivotal trial to support the [place] pre-market approval (PMA) of Absorb BVS. ABSORB III will evaluate the safety and effectiveness of the Absorb BVS System compared to the XIENCE in the treatment of subjects, including those with diabetes mellitus, with ischemic heart disease caused by up to two [place] coronary artery lesions in separate epicardial vessels. [...] through 5 years post procedure. Study ID#: [id number], JAM NOTE: Patient must remain blinded to their assigned study device!! * Curt Silva - 07/29/2013 7:25 AM EST ABSORB III RANDOMIZED CONTROLLED TRIAL A Clinical Evaluation of Absorb??? BVS, the Everolimus Eluting Bioresorbable Vascular Scaffold in the Treatment of Subjects with de abby Gambell Coronary Artery Lesions PI: Edy Trimble MD Pager #:[phone] Research Coordinators: Curt Silva, BS, BA, DIRECTOR APPAREL Pager #:[phone] Oneil Newsome RN Pager #: [phone] Purpose: The pivotal trial to support the [place] pre-market approval (PMA) of Absorb BVS. ABSORB III will evaluate the safety and effectiveness of the Absorb BVS System compared to the XIENCE in the treatment of subjects, including those with diabetes mellitus, with ischemic heart disease caused by up to two [place] coronary artery lesions in separate epicardial vessels. [...] - 07/29/2013 11:16 AM EST Romeo Coe [id number] 07/29/2013 48 y.o. Admission History and Physical [...] and clopidogrel per protocol. Randell Giles MD Resin Filterer Pager# [phone] 07/29/2013 Cardiology Attending Note: Patient seen and [...] 08/01/2013 8:56 PM ESTAssociated Order(s): SCAN DOC: SOLUTION SPECIALIST documented in this encounter Miscellaneous Notes [...] to the outpatient cardiac rehabilitation program at [facility] was discussed. He participated briefly in the program at [facility] last year ( closest to him) but did not have a good experience so stopped. A referral will be sent to [facility] the program and the patient will be [...] with 3.5 X 18 mm [facility] 2009 post abnormal nuc [...] appointments: During 8am-5pm Thursday through Thursday call [phone] to speak with a nurse in the cardiology clinic All other times call [phone] and ask to speak to the medical assistant cardiology senior market intelligence consultant. Return to work: One week Driving: No driving for 48 hours after catheterization. Follow up Appointments: PCP Call for appointment in 1-2 weeks. Expense Analyst You should be seen in 3-4 weeks for follow up. Please call for appointment Home oxygen therapy: N/A Arrangements for VNA/home care: none General Instructions None Future Appointments and Orders Future Orders Please Complete By Expires Referral to Cardiac Rehab [[id number] Custom] Process Instructions: If no progress note charted, please enter Clinical details in comments. Scheduling Instructions: Comments: Cardiac rehab @ [facility] Questions: Responses: Reason for referral angina, stent Provider Contact Information: Dr. Atilio Giles Section of Cardiology [facility] [phone] Discharge References/Attachments: Discharge References/Attachments None Signed: Turner [...] Procedure Name Priority Date/Time Associated Diagnosis Comments SOLUTION SPECIALIST SCAN 08/01/2013 8:56 PM EST EKG [...] Routine 07/29/2013 4:53 PM EST CARDIAC ENZYMES ([facility]) STAT 07/29/2013 12:53 PM EST POCT GLUCOSE Routine 07/29/2013 12:36 PM EST EKG 12-LEAD Routine 07/29/2013 11:26 AM EST ASCVD (arteriosclerotic cardiovascular disease) CARDIAC ENZYMES ([facility]) Routine 07/29/2013 10:55 AM EST MISCELLANEOUS LAB REQUEST Routine 07/29/2013 9:24 AM EST EKG 12-LEAD Routine 07/29/2013 7:50 AM EST ASCVD (arteriosclerotic cardiovascular disease) POCT GLUCOSE Routine 07/29/2013 7:46 AM EST ELECTROLYTES PANEL STAT 07/29/2013 6: 06 AM EST ASCVD (arteriosclerotic cardiovascular disease) documented in this encounter Results * SCAN DOC: SOLUTION SPECIALIST (08/01/2013 8:56 PM EST) Anatomical Region [...] (Bezet) 405 ms MUSE SYSTEM Calculated P [place] 7 degrees MUSE SYSTEM Calculated R [place] 24 degrees MUSE SYSTEM Calculated T [place] 20 degrees MUSE SYSTEM INTERPRETATION Normal sinus rhythm Normal ECG When compared with ECG of 29-JUL-2013 11:26, No significant change was found Confirmed by MD JACKSON, [place] ([id number]) on 07/30/2013 11:46:49 AM MUSE SYSTEM 07/30/2013 8:41 AM EST 07/30/2013 11:46 AM EST Edy Damon MD ECG ORDERABLES MUSE SYSTEM * POCT Glucose (07/30/2013 8:09 AM EST) Glucose, POC 156 60 - 199 mg/dL [facility] Comment: Supplemental ranges: <110 mg/dL before meals <200 mg/dL all other times of the day Blood specimen (specimen) 07/30/2013 8:09 AM EST 07/30/2013 8:09 AM EST Supa Lopez MD POINT OF CARE TEST ORDERABLES [facility] * Differential, Automated (07/30/2013 6:35 AM EST) Neutrophil % 60.0 34.0 - 71.0 % [facility] Neutrophil Absolute 5.42 1.50 - 6.30 x10(3)/mcL [facility] Lymph % 27.8 19.0 - 53.0 % [...] EST Edy Damon MD HEMATOLOGY ORDERABLE S [facility] * CBC (with Diff) (07/30/2013 6:35 [...] Lab Edy Damon MD HEMATOLOGY ORDERABLE [facility] * (ABNORMAL) Lipid panel (fasting) (07/30/2013 6:30 AM EST) Cholesterol, Total 154 <=199 mg/dL [facility] M[facility] Comment: Recommendations of the NCEP Adult Treatment Panel for the following risk cutoff thresholds for the [place] population: Desirable: <200 mg/dL Borderline High: 200-239 mg/dL High: > or = 240 mg/dL Triglyceride 156(H) <=149 mg/dL [facility] Comment: Reference Range: Normal triglycerides: ??<150 mg/dL Borderline high: ??150-199 mg/dL High: ??200-499 mg/dL Very high: ??>wh=171 mg/dL RACHEL 2001; 285(19):3655-7766 HDL Cholesterol 36(L) >=40 mg/dL [facility] Comment: Reference range: ??Low HDL: ?? < 40 mg/dL ??Normal: ?40-60 mg/dL ??Desirable: > 60 mg/dL RACHEL 2001; 285(19):0683-8502 LDL Cholesterol 87 <=99 mg/dL [facility] Comment: Reference range: ?? Optimal: ?<100 mg/dL ?? Near Optimal/Above Optimal: ?? 100-129 mg/dL ?? Borderline high: ?130-159 mg/dL ?? High: ? 160-189 mg/dL ?? Very high: ?>et=816 mg/dL RACHEL 2001: 285(19):4357-3693 Cholesterol/HDL Ratio 4.3 ratio [facility] Comment: A Cholesterol to HDL ratio below 4:1 is desirable. ??Studies suggest that increased CAD risk occurs at ratios above 5 for females and above 6 for men. ? [place] Heart Association ??(http://www.americanheart.org) ? Pallavi Int Med, 1994; 121:641 ? AM J Med, 1998; 105(1A):48S Blood specimen (specimen) 07/30/2013 6:30 AM EST 07/30/2013 6:44 AM EST Narrative Resulting Agency Comment Spec In Lab Edy Damon MD CHEMISTRY ORDERABLES [facility] * (ABNORMAL) BMP w/fasting Glucose (07/30/2013 6:30 AM EST) Glucose Fasting 156(H) 65 - 99 mg/dL [facility] Comment: ?Fasting* Glucose Interpretive Criteria Normal [...] of Diabetes Mellitus, Position Statement from the [place] Diabetes Association. ??Diabetes Care, Volume 33, Supplement 1, Aug 2009 Blood Urea Nitrogen 11 10 - 20 mg/dL [facility] Creatinine 0.62(L) 0.80 - 1.50 mg/dL [facility] MILLENNI[facility] Comment: Please note that the pediatric reference intervals supplied above were not validated at [facility]. Results from pediatric patients should be interpreted [...] damage. Diagnosis of acute, evolving or recent [place] requires a typical rise and gradual fall [...] consensus document of the Joint Society of Cardiology/[place] College of Cardiology Committee for the redefinition of myocardial infarction. ??Journal of the [place] College of Cardiology 2000; 36: 959-969] Creatine Kinase 60 0 - 200 unit/L [facility] Blood specimen (specimen) 07/30/2013 6:30 AM EST 07/30/2013 6:44 AM EST Narrative Resulting Agency Comment Spec In Lab Edy Damon MD CHEMISTRY ORDERABLES Performing Organization Address [facility] de Phone Number [facility] * Miscellaneous Lab request (07/30/2013 6:00 AM EST) Label Request received in lab. [facility] Blood specimen (specimen) 07/30/2013 6:00 AM EST 07/30/2013 6:31 AM EST Edy Damon MD LAB SEND OUT ORDERAB LES Performing Organization Address [facility] de Phone Number [facility] * POCT Glucose (07/30/2013 4:18 AM EST) Glucose, POC 145 60 - 199 mg/dL [facility] Comment: Supplemental ranges: <110 mg/dL before meals <200 mg/dL all other times of the day Blood specimen (specimen) 07/30/2013 4:18 AM EST 07/30/2013 4:18 AM EST Supa Lopez MD POINT OF CARE TEST ORDERABLES Performing Organization Address [facility]/ZIP Co de Phone Number [facility] * POCT Glucose (07/30/2013 12:17 AM EST) Glucose, POC 129 60 - 199 mg/dL [facility] Comment: Supplemental ranges: <110 mg/dL before meals <200 mg/dL all other times of the day Blood specimen (specimen) 07/30/2013 12:17 AM EST 07/30/2013 12:17 AM EST Supa Lopez MD POINT OF CARE TEST ORDERABLES Performing Organization Address [facility] de Phone Number [facility] * POCT Glucose (07/29/2013 8:02 PM EST) Glucose, POC 127 60 - 199 mg/dL [facility] Comment: Supplemental ranges: <110 mg/dL before meals <200 mg/dL all other times of the day Blood specimen (specimen) 07/29/2013 8:02 PM EST 07/29/2013 8:02 PM EST Supa Lopez MD POINT OF CARE TEST ORDERABLES Performing Organization Address [facility] de Phone Number [facility] * Miscellaneous Lab request (07/29/2013 6:05 PM EST) Label Request received in lab. [facility] Blood specimen (specimen) 07/29/2013 6:05 PM EST 07/29/2013 6:17 PM EST Edy Damon MD LAB SEND OUT ORDERAB LES Performing Organization Address [facility] Co de Phone Number [facility] * POCT Glucose (07/29/2013 4:53 PM EST) Glucose, POC 138 60 - 199 mg/dL [facility] Comment: Supplemental ranges: <110 mg/dL before meals <200 mg/dL all other times of the day Blood specimen (specimen) 07/29/2013 4:53 PM EST 07/29/2013 4:53 PM EST Supa Lopez MD POINT OF CARE TEST ORDERABLES Performing Organization Address [facility] de Phone Number [facility] * Cardiac Enzymes (07/29/2013 12:53 PM EST) Troponin-T <0.03 <=0.03 ng/mL [facility] Comment: 0.03 ng/mL: Represents the 99th percentile upper reference limit for normals. >0.03 ng/mL: Elevated cardiac troponin T level indicative of myocardial damage. Diagnosis of acute, evolving or recent [place] requires a typical rise and gradual fall [...] consensus document of the Joint Society of Cardiology/[place] College of Cardiology Committee for the redefinition of myocardial infarction. ??Journal of the [place] College of Cardiology 2000; 36: 959-969] Creatine Kinase 55 0 - 200 unit/L [facility] Blood specimen (specimen) 07/29/2013 12:53 PM EST 07/29/2013 12:59 PM EST Narrative Resulting Agency Comment Spec In Lab Edy Damon MD CHEMISTRY ORDERABLES Performing Organization Address [facility] de Phone Number [facility] * POCT Glucose (07/29/2013 12:36 PM EST) Glucose, POC 142 60 - 199 mg/dL [facility] Comment: Supplemental ranges: <110 mg/dL before meals <200 mg/dL all other times of the day Blood specimen (specimen) 07/29/2013 12:36 PM EST 07/29/2013 12:36 PM EST Supa Lopez MD POINT OF CARE TEST ORDERABLES Performing Organization Address [facility] de Phone Number [facility] * EKG 12 Lead (07/29/2013 11:26 AM EST) Ventricular rate 67 BPM MUSE SYSTEM Atrial Rate 67 BPM MUSE SYSTEM P-R Interval 164 ms MUSE SYSTEM QRS Duration 90 ms MUSE SYSTEM Q-T Interval 394 ms MUSE SYSTEM QTC Calculated (Bezet) 416 ms MUSE SYSTEM Calculated P [place] 48 degrees MUSE SYSTEM Calculated R [place] 33 degrees MUSE SYSTEM Calculated T [place] 32 degrees MUSE SYSTEM INTERPRETATION Normal sinus rhythm Normal ECG When compared with ECG of 29-JUL-2013 07:50, (unconfirmed) No significant change was found Confirmed by MD SELINA, FRED ([id number]) on 07/30/2013 7:39:47 AM MUSE SYSTEM 07/29/2013 11:2 6 AM EST 07/30/2013 7:39 AM EST Edy Damon MD ECG ORDERABLES Performing Organization Address [facility] de Phone Number MUSE SYSTEM * Cardiac Enzymes (07/29/2013 10:55 AM EST) Troponin-T <0.03 <=0.03 ng/mL [facility] [employer] Comment: 0.03 ng/mL: Represents the 99th percentile upper reference limit for normals. >0.03 ng/mL: Elevated cardiac troponin T level indicative of myocardial damage. Diagnosis of acute, evolving or recent [place] requires a typical rise and gradual fall [...] consensus document of the Joint Society of Cardiology/[place] College of Cardiology Committee for the redefinition of myocardial infarction. ??Journal of the [place] College of Cardiology 2000; 36: 959-969] Creatine Kinase 50 0 - 200 unit/L [facility] Blood specimen (specimen) 07/29/2013 10:55 AM EST 07/29/2013 11:08 AM EST Narrative Resulting Agency Comment Spec In Lab Edy Damon MD CHEMISTRY ORDERABLES Performing Organization Address [facility] de Phone Number [facility] * Miscellaneous Lab request (07/29/2013 9:24 AM EST) Label Request received in lab. [facility] Blood specimen (specimen) 07/29/2013 9:24 AM EST 07/29/2013 10:56 AM EST Edy Damon MD LAB SEND OUT ORDERAB LES Performing Organization Address [facility] Phone Number [facility] * EKG 12 Lead (07/29/2013 7:50 AM EST) Ventricular rate 72 BPM MUSE SYSTEM Atrial Rate 72 BPM MUSE SYSTEM P-R Interval 136 ms MUSE SYSTEM QRS Duration 94 ms MUSE SYSTEM Q-T Interval 372 ms MUSE SYSTEM QTC Calculated (Bezet) 407 ms MUSE SYSTEM Calculated P [place] 3 degrees MUSE SYSTEM Calculated R [place] 42 degrees MUSE SYSTEM Calculated T [place] 36 degrees MUSE SYSTEM INTERPRETATION Normal sinus rhythm Normal ECG When compared with ECG of 15-JUN-2012 12:40, No significant change was found Confirmed by MD SELINA, FRED ([id number]) on 07/30/2013 7:24:11 AM MUSE SYSTEM 07/29/2013 7:50 AM EST 07/30/2013 7:24 AM EST Edy Damon MD ECG ORDERABLES Performing Organization Address [facility] Co de Phone Number MUSE SYSTEM * POCT Glucose (07/29/2013 7:46 AM EST) Glucose, POC 160 60 - 199 mg/dL [facility] Comment: Supplemental ranges: <110 mg/dL before meals <200 mg/dL all other times of the day Blood specimen (specimen) 07/29/2013 7:46 AM EST 07/29/2013 7:46 AM EST Supa Lopez MD POINT OF CARE TEST ORDERABLES Performing Organization Address [facility] Co de Phone Number TANG NORTON [...] Ball MD CHEMISTRY ORDERABLES Performing Organization Address [facility] Co de Phone Number TANG NORTON [...] in sodium chloride 0.9% 90 mL infusion (HOOP ROLLS OPERATOR) CONTINUOUS PRN, Starting on Thu07/29/13 at 0955, [...] 07/30/13 at 0900, Until Discontinued, Routine 1342 ([facility] Hold - Provider: Admin Adt - Reason: Transfer to a Procedural area)1343 ([facility] Unhold - Provider: Admin Adt) 0826 (Given - Provider: Reina Randall RN) clopidogrel (PLAVIX) tablet 75 mg (CANCELED) 75 mg, Oral, DAILY, First dose on Thu07/29/13 at 1245, Until Discontinued, Routine 1245 (Not Given - Provider: Jessica Barr RN - Reason: See comment - Comment: pt took in a.m.)1342 ([facility] [place] Hold - Provider: Admin Adt - Reason: Transfer to a Procedural area)1343 ([facility] [place] Unhold - Provider: Admin Adt) 0826 (Given - Provider: Reina Randall RN) cyclobenzaprine (FLEXERIL) tablet 10 mg (CANCELED) 10 mg, Oral, NIGHTLY, First dose on Thu07/29/13 at 2100, Until Discontinued, Routine 1342 ([facility] [place] Hold - Provider: Admin Adt - Reason: Transfer to a Procedural area)1343 ([facility] [place] Unhold - Provider: Admin Adt)2122 (Given - Provider: Mahesh Hurt RN) diaZEPam (VALIUM) tablet 5 mg (COMPLETED) 5 mg, Oral, ONCE, 1 dose, On Thu07/29/13 at 0800, Cath (Day of Procedure), Routine 0838 (Given - Provider: Kemi Mullen, VERO) DILTiazem (DILACOR XR) XR capsule 240 mg (CANCELED) 240 mg, Oral, DAILY, First dose on 07/30/13 at 0900, Until Discontinued, Routine 1342 ([facility] [place] Hold - Provider: Admin Adt - Reason: Transfer to a Procedural area)1343 ([facility] [place] Unhold - Provider: Admin Adt) 0826 (Given - Provider: Reina Randall RN) diphenhydrAMINE (BENADRYL) capsule 25 mg (COMPLETED) 25 mg, Oral, ONCE, 1 dose, On Thu07/29/13 at 0800, Cath (Day of Procedure), Routine 0839 (Given - Provider: Kemi Mullen RN) DULoxetine (CYMBALTA) capsule 60 mg (CANCELED) 60 mg, Oral, 2 TIMES DAILY, First dose on Thu07/29/13 at 2100, Until Discontinued, Routine 1342 ([facility] [place] Hold - Provider: Admin Adt - Reason: Transfer to a Procedural area)1343 ([facility] [place] Unhold - Provider: Admin Adt)2122 (Given - Provider: Mahesh Hurt, RN) 0826 (Given - Provider: Reina Randall RN) furosemide (LASIX) tablet 20 mg (CANCELED) 20 mg, Oral, DAILY, First dose on Thu07/29/13 at 1245, Until Discontinued, Routine 1245 (Not Given - Provider: Jessica Barr RN - Reason: Patient/family refused)1342 ([facility] [place] Hold - Provider: Admin Adt - Reason: Transfer to a Procedural area)1343 ([facility] [place] Unhold - Provider: Admin Adt) 0826 (Given - Provider: Reina Randall RN) gabapentin (NEURONTIN) capsule 300 mg (CANCELED) 300 mg, Oral, 3 TIMES DAILY, First dose on Thu07/29/13 at 1500, Until Discontinued, Routine 1342 ([facility] [place] Hold - Provider: Admin Adt - Reason: Transfer to a Procedural area)1343 ([facility] [place] Unhold - Provider: Admin Adt)1500 (Given - [...] 07/30/13 at 0600, Until Discontinued, Routine 1342 ([facility] [place] Hold - Provider: Admin Adt - Reason: Transfer to a Procedural area)1343 ([facility] [place] Unhold - Provider: Admin Adt) 0638 (Given - Provider: Mahesh Hurt RN) metoprolol tartrate (LOPRESSOR) tablet 50 mg (CANCELED) 50 mg, Oral, 2 TIMES DAILY, First dose on Thu07/29/13 at 1245, Until Discontinued, Routine 1245 (Not Given - Provider: Jessica Barr RN - Reason: See comment - Comment: pt took in a.m.)1342 ([facility] [place] Hold - Provider: Admin Adt - Reason: Transfer to a Procedural area)1343 ([facility] [place] Unhold - Provider: Admin Adt)212 (Given - Provider: Mahesh Hurt RN) 08 (Given - Provider: Reina Randall RN) pantoprazole (PROTONIX) tablet 20 mg 20 mg, Oral, DAILY, First dose on 07/30/13 at 0900, Until Discontinued, Restricted to patients on clopidpgrel (PLAVIX) who require a proton pump inhibitor 1342 ([facility] [place] Hold - Provider: Admin Adt - Reason: Transfer to a Procedural area)1343 ([facility] [place] Unhold - Provider: Admin Adt) 0826 (Given - Provider: Reina Randall RN) rosuvastatin (CRESTOR) tablet 10 mg (CANCELED) 10 mg, Oral, EVERY EVENING, First dose on Thu07/29/13 at 1700, Until Discontinued, Routine 1342 ([facility] [place] Hold - Provider: Admin Adt - Reason: Transfer to a Procedural area)1343 ([facility] [place] Unhold - Provider: Admin Adt)1700 (Given - [...] (New Bag - Provider: Keeley Kyle RN)1342 ([facility] [place] Hold - Provider: Admin Adt - Reason: Transfer to a Procedural area)1343 ([facility] [place] Unhold - Provider: Admin Adt)1652 (Stopped - Provider: Jessica Barr RN) PRN Medication Order 07/28/2013 07/29/2013 07/30/2013 adenosine 90 mg in sodium chloride 0.9% 90 mL infusion (HOOP ROLLS OPERATOR) (CANCELED) CONTINUOUS PRN, Starting on Thu07/29/13 at [...] MD) documented in this encounter Care Teams Lockstitch Front Maker Relationship Specialty Start Date End Date Sarita Lim MD [address] [place] [address] PCP - General 07/16/10 documented as of this encounter
--- OUTSIDE RECORDS SUMMARY | 2024-04-30 18:22 | XMS_ITS | Encounter Summary ---
Author Organization [facility] Address [facility] [place] [address] Care Team Providers Care Smocking Machine Operator Name Role Phone Coni Lim MD Primary Care Provider Encounter Details Date Type Department Care Team (Late st Contact Info) Description 02/14/2014 Telephone Cardiology [facility] [phone] Eros Ballard MD [facility] [place] [address] Social History Tobacco Use Types Packs/Day Years [...] started on heparin drip and transferred to [facility]. documented in this encounter Plan of Treatment Not on file documented as of this encounter Visit Diagnoses Not on filedocumented in this encounter Care Teams Smocking Machine Operator Relationship Specialty Start Date End Date Coni Lim MD [address] [place] [address] PCP - General 07/16/10 documented as of this encounter
--- OUTSIDE RECORDS SUMMARY | 2024-04-30 18:22 | XMS_ITS | Encounter Summary ---
Author Organization [facility] [place] [address] Care Team Providers Care Mechanical Laboratory Technician Name Role Phone Coni Lim MD Primary Care Provider [phone] Encounter Details Date Type Department Care Team (Late st Contact Info) Description 07/26/2015 Telephone Cardiology at [address] [phone] Destin Patel, RN Social History Tobacco Use [...] Kim Horvath is aware as the blinded child protective investigator. I will follow up with him should it be necessary. documented in this encounter Plan of Treatment Not on file documented as of this encounter Visit Diagnoses Not on filedocumented in this encounter Care Teams Mechanical Laboratory Technician Relationship Specialty Start Date End Date Coni Lim MD [address] [place] [address] PCP - General 07/16/10 documented as of this encounter
--- OUTSIDE RECORDS SUMMARY | 2024-04-30 18:22 | XMS_ITS | Encounter Summary ---
[place] [address] Care Team Providers Care Therapeutic Program Worker Name Role Phone Coni Lim MD Primary Care Provider [phone] Reason for Visit * Reason Onset Date Comments Other 07/26/2013 PRE CATH WORK UP DIABETIC METFORMIN Encounter Details Date Type Department Care Team (Late st Contact Info) Description 07/26/2013 Telephone Cardiology at [address] [phone] Lana Damon Other (PRE CATH WORK UP [...] on filedocumented in this encounter Care Teams Therapeutic Program Worker Relationship Specialty Start Date End Date Coni Lim MD [address] [place] [address] PCP - General 07/16/10 documented as of this encounter
--- OUTSIDE RECORDS SUMMARY | 2024-04-30 18:22 | XMS_ITS | Encounter Summary ---
Author Organization [facility] [place] [address] Care Team Providers Care Inspector Motor Vehicles Name Role Phone Sarita hCew MD Primary Care Provider [phone] Reason for Referral * (Routine) - Closed by system - Referral Specialty Diagnoses / Procedures Referred By Contac t Referred To Contact Cardiac Rehabilitation Diagnoses S/P coronary artery stent placement Edy Trimble MD [facility] [place] [address] Referral ID Status Reason Start Date Expiration Date Visits Requested Visits Authorized [id number] Closed by system - Referral Evaluate and Treat 07/30/2013 01/26/2014 1 1 Encounter Details Date Type Department Care Team (Late st Contact Info) Description 07/29/2013 5:57 AM EST - 07/30/2013 10:58 AM EST Hospital Encounter [place] [phone] Taylor Dickinson PA [facility] [place] [address] Supa Lopez MD [facility] [place] [address] Agusto Ball II, MD [facility] [place] [address] Edy Trimble MD [facility] [place] [address] ASCVD (arteriosclerotic cardiovascular disease); S/P coronary artery [...] appointments: During 8am-5pm Thursday through Thursday call [phone] to speak with a nurse in the cardiology clinic All other times call [phone] and ask to speak to the product distribution specialist liaison inspection laboratory assistant. Return to work: One week Driving: No driving for 48 hours after catheterization. Follow up Appointments: PCP Call for appointment in 1-2 weeks. 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 Please call for appointment Home oxygen therapy: N/A Arrangements for VNA/home care: none * Attachments The following attachments cannot be sent through Care Everywhere. * CARDIAC REHABILITATION: AFTER YOUR VISIT (THAI) * CHEST PAIN (ANGINA): AFTER YOUR VISIT (THAI) * PERCUTANEOUS CORONARY INTERVENTION: WHAT TO EXPECT AT HOME (THAI) documented in this encounter Medications at Time [...] mg/dL MISCELLANEOUS LAB REQUEST Component Value Range [facility] Lab Result Request received in lab. CK-MB [...] mg/dL MISCELLANEOUS LAB REQUEST Component Value Range [facility] Lab Result Request received in lab. CK-MB [...] the Treatment of Subjects with de abby Belkofski Coronary Artery Lesions PI: Edy Trimble MD Pager #:[phone] Research Coordinators: GLADYS Rosenbaum, BA, GERIATRIC NURSE PRACTITIONER Pager #:[phone] Oneil Newsome RN Pager #: [phone] Purpose: The pivotal trial to support the [place] pre-market approval (PMA) of Absorb BVS. ABSORB III will evaluate the safety and effectiveness of the Absorb BVS System compared to the XIENCE in the treatment of subjects, including those with diabetes mellitus, with ischemic heart disease caused by up to two denovo little traverse coronary artery lesions in separate epicardial vessels. [...] through 5 years post procedure. Study ID#: [id number], JAM NOTE: Patient must remain blinded to their assigned study device!! * Curt Silva - 07/29/2013 7:25 AM EST ABSORB III RANDOMIZED CONTROLLED TRIAL A Clinical Evaluation of Absorb??? BVS, the Everolimus Eluting Bioresorbable Vascular Scaffold in the Treatment of Subjects with de abby Belkofski Coronary Artery Lesions PI: Edy Trimble MD Pager #:[phone] Research Coordinators: GLADYS Rosenbaum, BA, GERIATRIC NURSE PRACTITIONER Pager #:[phone] Oneil Newsome RN Pager #: [phone] Purpose: The pivotal trial to support the [place] pre-market approval (PMA) of Absorb BVS. ABSORB III will evaluate the safety and effectiveness of the Absorb BVS System compared to the XIENCE in the treatment of subjects, including those with diabetes mellitus, with ischemic heart disease caused by up to two denovo little traverse coronary artery lesions in separate epicardial vessels. [...] - 07/29/2013 11:16 AM EST Romeo Coe [id number] 07/29/2013 48 y.o. Admission History and Physical [...] and clopidogrel per protocol. Randell Giles MD Drapery Supervisor Pager# [phone] 07/29/2013 Cardiology Attending Note: Patient seen and [...] 08/01/2013 8:56 PM ESTAssociated Order(s): SCAN DOC: MANAGING PARTNER [employer] [place] documented in this encounter Miscellaneous Notes * [...] to the outpatient cardiac rehabilitation program at [facility] was discussed. He participated briefly in the program at [facility] last year ( closest to him) but did not have a good experience so stopped. A referral will be sent to [facility] the program and the patient will be [...] with 3.5 X 18 mm [facility] 2009 post abnormal nuc stress +IW, [...] appointments: During 8am-5pm Thursday through Thursday call [phone] to speak with a nurse in the cardiology clinic All other times call [phone] and ask to speak to the product distribution specialist liaison inspection laboratory assistant. Return to work: One week Driving: No driving for 48 hours after catheterization. Follow up Appointments: PCP Call for appointment in 1-2 weeks. 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 Please call for appointment Home oxygen therapy: N/A Arrangements for VNA/home care: none General Instructions None Future Appointments and Orders Future Orders Please Complete By Expires Referral to Cardiac Rehab [[id number] Custom] Process Instructions: If no progress note charted, please enter Clinical details in comments. Scheduling Instructions: Comments: Cardiac rehab @ [facility] Questions: Responses: Reason for referral angina, stent Provider Contact Information: Dr. Atilio Giles Section of Cardiology [facility] [phone] Discharge References/Attachments: Discharge References/Attachments None Signed: Turner [...] Procedure Name Priority Date/Time Associated Diagnosis Comments [employer]NA[employer]ING [employer] [place] SCAN 08/01/2013 8:56 PM EST EKG 12-LEAD [...] Routine 07/29/2013 4:53 PM EST CARDIAC ENZYMES ([facility]) STAT 07/29/2013 12:53 PM EST POCT GLUCOSE Routine 07/29/2013 12:36 PM EST EKG 12-LEAD Routine 07/29/2013 11:26 AM EST ASCVD (arteriosclerotic cardiovascular disease) CARDIAC ENZYMES ([facility]) Routine 07/29/2013 10:55 AM EST MISCELLANEOUS LAB REQUEST Routine 07/29/2013 9:24 AM EST EKG 12-LEAD Routine 07/29/2013 7:50 AM EST ASCVD (arteriosclerotic cardiovascular disease) POCT GLUCOSE Routine 07/29/2013 7:46 AM EST ELECTROLYTES PANEL STAT 07/29/2013 6: 06 AM EST ASCVD (arteriosclerotic cardiovascular disease) documented in this encounter Results * SCAN DOC: MANAGING [employer] [place] (08/01/2013 8:56 PM EST) Anatomical Region Laterality [...] (Bezet) 405 ms MUSE SYSTEM Calculated P [place] 7 degrees MUSE SYSTEM Calculated R [place] 24 degrees MUSE SYSTEM Calculated T [place] 20 degrees MUSE SYSTEM INTERPRETATION Normal sinus rhythm Normal ECG When compared with ECG of 29-JUL-2013 11:26, No significant change was found Confirmed by MD JACKSON, [place] ([id number]) on 07/30/2013 11:46:49 AM MUSE SYSTEM 07/30/2013 [...] OF CARE TEST ORDERABLES Performing Organization Address [facility] Co de Phone Number CERNER MILLENNIUM [...] MD HEMATOLOGY ORDERABLE S Performing Organization Address [facility] Co de Phone Number TANG CLEMENSIUM [...] MD HEMATOLOGY ORDERABLE S Performing Organization Address [facility] de Phone Number TANG NORTON * (ABNORMAL) Lipid panel (fasting) (07/30/2013 6:30 AM EST) Cholesterol, Total 154 <=199 mg/dL CERNER MILLENNIUM Comment: Recommendations of the NCEP Adult Treatment Panel for the following risk cutoff thresholds for the [place] population: Desirable: <200 mg/dL Borderline High: 200-239 mg/dL High: > or = 240 mg/dL Triglyceride 156(H) <=149 mg/dL CERNER MILLENNIUM Comment: Reference Range: Normal triglycerides: ??<150 mg/dL Borderline high: ??150-199 mg/dL High: ??200-499 mg/dL Very high: ??>iy=224 mg/dL RACHEL 2001; 285(19):2244-9665 HDL Cholesterol 36(L) >=40 mg/dL CER NER MILLENNIUM Comment: Reference range: ??Low HDL: ?? < 40 mg/dL ??Normal: ?40-60 mg/dL ??Desirable: > 60 mg/dL RACHEL 2001; 285(19):5126-1574 LDL Cholesterol 87 <=99 mg/dL CER NER MILLENNIUM Comment: Reference range: ?? Optimal: ?<100 mg/dL ?? Near Optimal/Above Optimal: ?? 100-129 mg/dL ?? Borderline high: ?130-159 mg/dL ?? High: ? 160-189 mg/dL ?? Very high: ?>ac=503 mg/dL RACHEL 2001: 285(19):0071-7613 Cholesterol/HDL Ratio 4.3 ratio CERNER MILLENNIUM Comment: A Cholesterol to HDL ratio below 4:1 is desirable. ??Studies suggest that increased CAD risk occurs at ratios above 5 for females and above 6 for men. ? [place] Heart Association ??(http://www.americanheart.org) ? Pallavi Int Med, [...] of Diabetes Mellitus, Position Statement from the [place] Diabetes Association. ??Diabetes Care, Volume 33, Supplement 1, Aug 2009 Blood Urea Nitrogen 11 10 - 20 mg/dL CERNER MILLENNIUM Creatinine 0.62(L) 0.80 - 1.50 mg/dL CERNER MILLENNIUM Comment: Please note that the pediatric reference intervals supplied above were not validated at [facility]. Results from pediatric patients should be interpreted [...] In Lab Edy Damon MD CHEMISTRY ORDERABLES [facility] * Cardiac Enzymes (07/30/2013 6:30 AM EST) Troponin-T <0.03 <=0.03 ng/mL VERAANNABEL [employer] Comment: 0.03 ng/mL: Represents the 99th percentile upper reference limit for normals. >0.03 ng/mL: Elevated cardiac troponin T level indicative of myocardial damage. Diagnosis of acute, evolving or recent DC requires a typical rise and gradual fall [...] consensus document of the Joint Society of Cardiology/[place] College of Cardiology Committee for the redefinition of myocardial infarction. ??Journal of the [place] College of Cardiology 2000; 36: 959-969] Creatine Kinase 60 0 - 200 unit/L TANG [employer] Blood specimen (specimen) 07/30/2013 6:30 AM EST 07/30/2013 6:44 AM EST Narrative Resulting Agency Comment Spec In Lab Edy Damon MD CHEMISTRY ORDERABLES Performing Organization Address [facility] Phone Number [facility] * Miscellaneous Lab request (07/30/2013 6:00 AM EST) Label Request received in lab. [facility] Blood specimen (specimen) 07/30/2013 6:00 AM EST 07/30/2013 6:31 AM EST Edy Damon MD LAB SEND OUT ORDERAB LES Performing Organization Address [facility] Phone Number [facility] * POCT Glucose (07/30/2013 4:18 AM EST) Glucose, POC 145 60 - 199 mg/dL [facility] Comment: Supplemental ranges: <110 mg/dL before meals <200 mg/dL all other times of the day Blood specimen (specimen) 07/30/2013 4:18 AM EST 07/30/2013 4:18 AM EST Supa Lopez MD POINT OF CARE TEST ORDERABLES Performing Organization Address [facility] Phone Number [facility] * POCT Glucose (07/30/2013 12:17 AM EST) Glucose, POC 129 60 - 199 mg/dL [facility] Comment: Supplemental ranges: <110 mg/dL before meals <200 mg/dL all other times of the day Blood specimen (specimen) 07/30/2013 12:17 AM EST 07/30/2013 12:17 AM EST Supa Lopez MD POINT OF CARE TEST ORDERABLES Performing Organization Address [facility] Phone Number [facility] * POCT Glucose (07/29/2013 8:02 PM EST) Glucose, POC 127 60 - 199 mg/dL [facility] Comment: Supplemental ranges: <110 mg/dL before meals <200 mg/dL all other times of the day Blood specimen (specimen) 07/29/2013 8:02 PM EST 07/29/2013 8:02 PM EST Supa Lopez MD POINT OF CARE TEST ORDERABLES Performing Organization Address [facility] Phone Number [facility] * Miscellaneous Lab request (07/29/2013 6:05 PM EST) Label Request received in lab. [facility] Blood specimen (specimen) 07/29/2013 6:05 PM EST 07/29/2013 6:17 PM EST Edy Damon MD LAB SEND OUT ORDERAB LES Performing Organization Address [facility] Phone Number [facility] * POCT Glucose (07/29/2013 4:53 PM EST) Pathologist [facility] Glucose, POC 138 60 - 199 mg/dL [facility] Comment: Supplemental ranges: <110 mg/dL before meals <200 mg/dL all other times of the day Blood specimen (specimen) 07/29/2013 4:53 PM EST 07/29/2013 4:53 PM EST Supa Lopez MD POINT OF CARE TEST ORDERABLES Performing Organization Address [facility] Phone Number [facility] * Cardiac Enzymes (07/29/2013 12:53 PM EST) [facility] Troponin-T <0.03 <=0.03 ng/mL [facility] Comment: 0.03 ng/mL: Represents the 99th percentile upper reference limit for normals. >0.03 ng/mL: Elevated cardiac troponin T level indicative of myocardial damage. Diagnosis of acute, evolving or recent DC requires a typical rise and gradual fall [...] consensus document of the Joint Society of Cardiology/[place] College of Cardiology Committee for the redefinition of myocardial infarction. ??Journal of the [place] College of Cardiology 2000; 36: 959-969] Creatine Kinase 55 0 - 200 unit/L [facility] Blood specimen (specimen) 07/29/2013 12:53 PM EST 07/29/2013 12:59 PM EST Narrative Resulting Agency Comment Spec In Lab Edy Damon MD CHEMISTRY ORDERABLES Performing Organization Address City/[facility]/ZIP Co de Phone Number [facility] * POCT Glucose (07/29/2013 12:36 PM EST) Glucose, POC 142 60 - 199 mg/dL [facility] Comment: Supplemental ranges: <110 mg/dL before meals <200 mg/dL all other times of the day Blood specimen (specimen) 07/29/2013 12:36 PM EST 07/29/2013 12:36 PM EST Supa Lopez MD POINT OF CARE TEST ORDERABLES Performing Organization Address [facility] Co de Phone Number [facility] * EKG 12 Lead (07/29/2013 11:26 AM EST) Ventricular rate 67 BPM MUSE SYSTEM Atrial Rate 67 BPM MUSE SYSTEM P-R Interval 164 ms MUSE SYSTEM QRS Duration 90 ms MUSE SYSTEM Q-T Interval 394 ms MUSE SYSTEM QTC Calculated (Bezet) 416 ms MUSE SYSTEM Calculated P [place] 48 degrees MUSE SYSTEM Calculated R [place] 33 degrees MUSE SYSTEM Calculated T [place] 32 degrees MUSE SYSTEM INTERPRETATION Normal sinus [...] damage. Diagnosis of acute, evolving or recent DC requires a typical rise and gradual fall [...] consensus document of the Joint Society of Cardiology/[place] College of Cardiology Committee for the redefinition of myocardial infarction. ??Journal of the [place] College of Cardiology 2000; 36: 959-969] Creatine Kinase 50 0 - 200 unit/L TANG NOROTN Blood specimen (specimen) 07/29/2013 10:55 AM EST 07/29/2013 11:08 AM EST Narrative Resulting Agency Comment Spec In Lab Edy Damon MD CHEMISTRY ORDERABLES Performing Organization Address [facility] Co de Phone Number TANG NORTON [...] (Bezet) 407 ms MUSE SYSTEM Calculated P [place] 3 degrees MUSE SYSTEM Calculated R [place] 42 degrees MUSE SYSTEM Calculated T [place] 36 degrees MUSE SYSTEM INTERPRETATION Normal sinus rhythm Normal ECG When compared with ECG of 15-JUN-2012 12:40, No significant change was found Confirmed by MD MARKS ALAN ([id number]) on 07/30/2013 7:24:11 AM MUSE SYSTEM 07/29/2013 7:50 AM EST 07/30/2013 7:24 AM EST Edy Damon MD ECG ORDERABLES MUSE SYSTEM * POCT Glucose (07/29/2013 7:46 AM EST) Pathologist [facility] Glucose, POC 160 60 - 199 mg/dL [...] Coronary atherosclerosis of unspecified type of vessel, little traverse or graft ASCVD (arteriosclerotic cardiovascular disease) Unspecified [...] Thu07/29/13 at 2100, Until Discontinued, Routine 1342 ([facility] Hold - Provider: Admin Adt - Reason: Transfer to a Procedural area)1343 ([facility] Unhold - Provider: Admin Adt)212 (Given - Provider: Mahesh Hurt RN) diaZEPam (VALIUM) tablet 5 mg (COMPLETED) 5 mg, Oral, ONCE, 1 dose, On Thu07/29/13 at 0800, Cath (Day of Procedure), Routine 0838 (Given - Provider: Kemi Mullen, VERO) DILTiazem (DILACOR XR) XR capsule 240 mg (CANCELED) 240 mg, Oral, DAILY, First dose on Thu07/30/13 at 0900, Until Discontinued, Routine 1342 ([facility] Hold - Provider: Admin Adt - Reason: Transfer to a Procedural area)1343 ([facility] Unhold - Provider: Admin Adt) 0826 (Given - Provider: Reina Randall RN) diphenhydrAMINE (BENADRYL) capsule 25 mg (COMPLETED) 25 mg, Oral, ONCE, 1 dose, On Thu07/29/13 at 0800, Cath (Day of Procedure), Routine 0839 (Given - Provider: Kemi Mullen, VERO) DULoxetine (CYMBALTA) capsule 60 mg (CANCELED) 60 mg, Oral, 2 TIMES DAILY, First dose on Thu07/29/13 at 2100, Until Discontinued, Routine 1342 ([facility] Hold - Provider: Admin Adt - Reason: Transfer to a Procedural area)1343 ([facility] Unhold - Provider: Admin Adt)212 (Given - Provider: Mahesh Hurt RN) 0826 (Given - Provider: Reina Randall RN) furosemide (LASIX) tablet 20 mg (CANCELED) 20 mg, Oral, DAILY, First dose on Thu07/29/13 at 1245, Until Discontinued, Routine 1245 (Not Given - Provider: Jessica Barr RN - Reason: Patient/family refused)1342 ([facility] Hold - Provider: Admin Adt - Reason: Transfer to a Procedural area)1343 ([facility] Unhold - Provider: Admin Adt) 0826 (Given - Provider: Reina Randall RN) gabapentin (NEURONTIN) capsule 300 mg (CANCELED) 300 mg, Oral, 3 TIMES DAILY, First dose on Thu07/29/13 at 1500, Until Discontinued, Routine 1342 ([facility] Hold - Provider: Admin Adt - Reason: [...] RN - Reason: Order parameters not met)1342 ([facility] Hold - Provider: Admin Adt - Reason: [...] - Reason: Transfer to a Procedural area)1343 ([facility] Unhold - Provider: Admin Adt) 0638 (Given - Provider: Mahehs Hurt RN) metoprolol tartrate (LOPRESSOR) tablet 50 mg (CANCELED) 50 mg, Oral, 2 TIMES DAILY, First dose on Thu07/29/13 at 1245, Until Discontinued, Routine 1245 (Not Given - Provider: Jessica Barr RN - Reason: See comment - Comment: pt took in a.m.)1342 ([facility] Hold - Provider: Admin Adt - Reason: Transfer to a Procedural area)1343 ([facility] Unhold - Provider: Admin Adt)2122 (Given - Provider: Mahesh Hurt RN) 0826 (Given - Provider: Reina Randall RN) pantoprazole (PROTONIX) tablet 20 mg 20 mg, Oral, DAILY, First dose on Thu07/30/13 at 0900, Until Discontinued, Restricted to patients on clopidpgrel (PLAVIX) who require a proton pump inhibitor 1342 ([facility] Hold - Provider: Admin Adt - Reason: Transfer to a Procedural area)1343 ([facility] Unhold - Provider: Admin Adt) 0826 (Given - Provider: Reina Randall RN) rosuvastatin (CRESTOR) tablet 10 mg (CANCELED) 10 mg, Oral, EVERY EVENING, First dose on Thu07/29/13 at 1700, Until Discontinued, Routine 1342 ([facility] Hold - Provider: Admin Adt - Reason: Transfer to a Procedural area)1343 ([facility] Unhold - Provider: Admin Adt)1700 (Given - [...] in sodium chloride 0.9% 90 mL infusion (SOCIAL SCIENCES INSTRUCTOR) (CANCELED) CONTINUOUS PRN, Starting on Thu07/29/13 at [...] Ren RN)1023 (Given - Provider: Daniel Asif, VREO)1034 (Given - Provider: Daniel Asif RN) iohexol [...] MD) documented in this encounter Care Teams Inspector Motor Vehicles Relationship Specialty Start Date End Date Sarita Chew MD [address] [place] [address] PCP - General 07/16/10 documented as of this encounter
--- OUTSIDE RECORDS SUMMARY | 2024-04-30 18:22 | XMS_ITS | Encounter Summary ---
Author Organization Replaced By [facility] [place] [address] Care Team Providers Care Farm Machinery Set Up Mechanic Name Role Phone Coni Lim MD Primary Care Provider [phone] Reason for Visit * Reason Onset Date Comments Medication Refill 08/10/2013 Encounter Details Date Type Department Care Team (Late st Contact Info) Description 08/10/2013 Refill Cardiology at [address] [phone] Turner Tan MD [facility] [place] [address] Medication Refill Social History Tobacco Use Types [...] Coronary atherosclerosis of unspecified type of vessel, [place] or graft documented in this encounter Care Teams Farm Machinery Set Up Mechanic Relationship Specialty Start Date End Date Coni Lim MD [address] [place] [address] PCP - General 07/16/10 documented as of this encounter
--- OUTSIDE RECORDS SUMMARY | 2024-04-30 18:22 | XMS_ITS | Encounter Summary ---
Author Organization [facility] [place] [address] Care Team Providers Care Gauge And Instrument Inspector Name Role Phone Coni Lim MD Primary Care Provider [phone] Encounter Details Date Type Department Care Team (Late st Contact Info) Description 11/17/2013 Abstract Cardiology at [address] [phone] Anastasiya Paulino, RN Social History Tobacco Use [...] on filedocumented in this encounter Care Teams Gauge And Instrument Inspector Relationship Specialty Start Date End Date Coni Lim MD [address] [place] [address] PCP - General 07/16/10 documented as of this encounter
--- OUTSIDE RECORDS SUMMARY | 2024-04-30 18:22 | XMS_ITS | Encounter Summary ---
Author Organization [facility] Address [facility] [place] [address] Care Team Providers Care Craft Recruiter Name Role Phone Coni Lim MD Primary Care Provider [phone] Reason for Visit * Auth/Cert Specialty Diagnoses / Procedures Referred By Ruby garvin Referred To Contact Diagnoses Unstable angina [place] Referral ID Status Reason Start Date Expiration Date Visits Re quested Visits Authorized [id number] 1 1 Encounter Details Date Type Department Care Team (Late st Contact Info) Description 11/24/2016 2:40 PM EDT - 11/24/2016 3:40 PM EDT [place] [address] Anton Horvath MD [facility] [place] [address] CARDIAC CATHETERIZATION Social History Tobacco Use Types [...] Romeo Coelho Patient Age: 51 y.o. Language: Citizen Of [place] Race: White Ethnicity: Not nor Admit date: 11/21/2016 Discharge date and time: 11/25/2016 Attending Physician: Roque Sanches MD Discharge Physician: Roque Sanches MD Follow-up Recommendations for Providers: 1. Admitted with unstable angina. Drug-eluting stent RCA. 2. Requires dual antiplatelet therapy for 1 year 3. Smoking cessation Inpatient Provider Contact Information: Keisha Rose APRN [facility] Provider # [id number] Discharge Diagnoses (Hospital Problems) and Secondary Diagnoses (Chronic Problems): Active Hospital Problems Diagnosis ??? Unstable angina ??? CAD (coronary artery disease) -Coronary Angio 07/29/2013: 65% (FFR 0.74) mid LAD lesion s/p PCI with 3.5 X 18 mm JACINDA - [facility] 2009 post abnormal nuc stress +IW, [...] stent restenosis addressed with LAD stentangioplasty at [facility] in January 2014), DM2, HTN, dyslipidemia, continued tobacco use, and obesity was transferred from [facility] to [facility] for further evaluation of unstable angina. Prior [...] PF, Split 07/30/2013 ??? Influenza Vaccine (Novel) [id number], Injectable 05/24/2009 ??? Influenza Vaccine w/Preservative, Split [...] contact one of the cardiology nurses at [facility] during normal business hours(Thursday through Thursday, 8 AM to 5 PM) at . During nonbusiness hours (evenings, nights, weekends, holidays), you may contact the collection advisor bottling supervisor at . Return to work: -unemployed Driving: -No driving for 48 hours after catheterization. Follow up Appointments: ?? PCP: Coni Lim MD will see you on November 28, 2016 at 2:45 PM at [facility]. You may contact her office at [phone] with any questions or concerns ?? Cardiology: Please see Dr. Ling in [place], [place] on December 16 at 11:00 AM. His office may be contacted at with any questions or concerns. Home oxygen therapy: N/A Arrangements for VNA/home care: none Discharge References/Attachments None Keisha Rose APRN Nurse Practitioner-Department of Cardiology [email or web address] Pager [phone] Phone number: [phone] Fax number [phone] I have discussed this patient with attending [...] contact one of the cardiology nurses at [facility] during normal business hours(Thursday through Thursday, 8 AM to 5 PM) at . During nonbusiness hours (evenings, nights, weekends, holidays), you may contact the collection advisor bottling supervisor at . Return to work: -unemployed Driving: -No driving for 48 hours after catheterization. Follow up Appointments: ?? PCP: Coni Lim MD will see you on November 28, 2016 at 2:45 PM at [facility]. You may contact her office at [phone] with any questions or concerns ?? Cardiology: Please see Dr. Ling in [place], [place] on December 16 at 11:00 AM. [...] Nicotine Replacement Therapy , November 23, 2012: https://www.federalregister.gov/articles//2013-95747/modificati pwx-kx-wsgjwkvf-yg-vedqoqtk-owchqgpiybb-vufldfg-jcyqnjne-sbp-mfoj-clm-wtlgdbf-hu man-use Nicotine lozenge instructions: Use the 4 [...] Nicotine Replacement Therapy , November 23, 2012: https://www.federalregister.gov/articles//2013-56516/modificati qlv-el-diovlhhw-nk-atwhayou-hrndvjoyjlw-tfmmhpw-mbhkqdve-anb-goba-thp-zpxthhi-hu man-use Remember to cut down on regular [...] please call them.The number is in the snapp.me Tobacco Cessation folder you were given. Contact [...] Progress Note Patient Name: Romeo Coelho Service: CLERK GUIDE / PA Responsible Attending: Roque Sanches MD Reason for continued hospitalization: -discharge -smoking cessation consult Active Problems: Active Hospital Problems Diagnosis ??? Unstable angina ??? CAD (coronary artery disease) -Coronary Angio 07/29/2013: 65% (FFR 0.74) mid LAD lesion s/p PCI with 3.5 X 18 mm JACINDA - [facility] 2009 post abnormal nuc stress +IW, [...] for the procedure was Urgent. The [facility] indication for the procedure was PCI for [...] restenosis addressed with LAD stent angioplasty at [facility] in January 2014, DM2, HTN, dyslipidemia, continued tobacco use, and obesity transferred to [facility] for further evaluation of unstable angina. Underwent Cardiac catheterization to day (11/24/16)-CI of RCA Comfortable overnight Smoking cessation consult Plan: 1. Unstable angina LAD and LCx disease defined at prior cardiac catheterizations (at [facility] and [facility]) Describes crescendo anginal symptoms which have [...] Progress Note Patient Name: Romeo Coelho Service: CLERK GUIDE / PA Responsible Attending: Roque Sanches MD Reason for continued hospitalization: Evaluation and management of unstable angina; cardiac cath anticipated today (11/24/16) Active Problems: Active Hospital Problems Diagnosis ??? Unstable angina ??? CAD (coronary artery disease) -Coronary Angio 07/29/2013: 65% (FFR 0.74) mid LAD lesion s/p PCI with 3.5 X 18 mm [facility]ACINDA - [facility] 2009 post abnormal nuc stress +IW, [...] restenosis addressed with LAD stent angioplasty at [facility] in January 2014, DM2, HTN, dyslipidemia, continued tobacco use, and obesity transferred to [facility] for further evaluation of unstable angina. Cardiac catheterization today ( 7). Plan: 1. Unstable angina LAD and LCx disease defined at prior cardiac catheterizations (at [facility] and [facility]) Describes crescendo anginal symptoms which have [...] Progress Note Patient Name: Romeo Coelho Service: CLERK GUIDE / PA Responsible Attending: Roque Sanches MD Reason for continued hospitalization: Evaluation and management of unstable angina Active Problems: Active Hospital Problems Diagnosis ??? Unstable angina ??? CAD (coronary artery disease) -Coronary Angio 07/29/2013: 65% (FFR 0.74) mid LAD lesion s/p PCI with 3.5 X 18 mm JACINDA - [facility] 2009 post abnormal nuc stress +IW, [...] restenosis addressed with LAD stent angioplasty at [facility] in January 2014, DM2, HTN, dyslipidemia, continued tobacco use, and obesity transferred to [facility] for further evaluation of unstable angina. Cardiac catheterization anticipated tomorrow AM (11/24/16). Plan: 1. Unstable angina LAD and LCx disease defined at prior cardiac catheterizations (at [facility] and [facility]) Describes crescendo anginal symptoms which have [...] Progress Note Patient Name: Romeo Coelho Service: CLERK GUIDE / PA Responsible Attending: Roque Sanches MD Reason for continued hospitalization: Evaluation and management of unstable angina Active Problems: Active Hospital Problems Diagnosis ??? Unstable angina ??? CAD (coronary artery disease) -Coronary Angio 07/29/2013: 65% (FFR 0.74) mid LAD lesion s/p PCI with 3.5 X 18 mm [facility]ACINDA - [facility] 2009 post abnormal nuc stress +IW, [...] restenosis addressed with LAD stent angioplasty at [facility] in January 2014, DM2, HTN, dyslipidemia, continued tobacco use, and obesity transferred to [facility] for further evaluation of unstable angina. Cardiac catheterization anticipated soon. Plan: 1. Unstable angina LAD and LCx disease defined at prior cardiac catheterizations (at [facility] and [facility]) Describes crescendo anginal symptoms which have [...] a 51 yr M ( Transferred from [place]) PMH of CAD - multiple PCIs in past, latest cath in January 2014 ( at [facility] ) JACINDA x2 to LAD, prior instent [...] in ED. Symptoms reminiscent of his prior MN / Unstable angina. Compliant with meds . [...] of Onset ??? Myocardial Infarction Father 46 [place], CABG ??? Diabetes Mother ??? Hypertension Mother [...] son (age 18 months), daughter 11 in [place], [place]. Takes care of his mother who has dementia and he takes her to dialysis. is disabled. Has grown daughter who is 29 years old. 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 Similar in character to prior MN / UA; Nitrate responsive. ECG : nsr [...] in the outpatient cardiac rehabilitation program at [place] was discussed. Patient agrees to a referral [...] of Onset ??? Myocardial Infarction Father 46 [place], CABG ??? Diabetes Mother ??? Hypertension Mother [...] his brain. TREATMENT PLAN/RECOMMENDATIONS: [X ] Provide [facility] Tobacco Cessation Packet Discuss and prescribe (if [...] 8-end 1 mg PO BID Refer to [place] [employer] e-referral placed X Refer to [...] up with either PCP and/or Quit line [phone]. X These recommendations have been discussed with the patient's primary team. DARCY STALEY APRN, [facility] Pager #[phone] [facility] Thoracic Surgery Time spent [...] Within the Past 30 Days: None at [facility], nor at outside hospitals, per pt's report. 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 I've been disabled for five years due to Fibromyalgia and Arthritis. Home Environment: Lives with his , Dasia in [place], [place]. Social & Family Supports/Community Resources: Dasia Coelho (Spouse) [address] [facility] [phone] (H) [phone] (M) Behavioral Health History: Per pt report, [...] Coverage: Yes, has Silver Script. Preferred Pharmacy: [id number] - [place], [place] - [address] [place] [address] ? [address] [place] [phone] ? Not a 24 hour pharmacy; exact hours not known Other: None Primary Care Provider: Coni Lim MD [phone] Patient/Caregiver Goals of Treatment: To return home and to his normal activities. Potential Needs for Transition of Care: Rehab/SNF: Pt has never been a pt in a rehab setting. Home Health: [facility] in the past (after right knee surgery). DME: Cane at home (doesn't consistently use it). Dialysis: N/A Community Resources: None Transportation: I may need RCT transportation. My car is in [facility] parking lot. I havethe only set of keys. Other: None Anticipated Barriers to Discharge/Special Considerations: No barriers noted at this time. Plan: A member of the Care Management team will continue to monitor progress, follow for continuity of care and assist with transition of care planning. SON MARLEY RN Pager: [phone] * Plan of Care - Christy Medina [...] Radiograph today, Echo and Cardiac Enzymes Pending Outsole Compressor ? Thursday more likely Thursday (pt. Informed) [...] online chart. Telemetry Report: 757: Intermittent SA, TX 0.17, QRS 0.08, RR 0.75, QT 0.35, [...] has been given and explained to Romeo aLquita. Questions were answered to the best of my ability. Romeo Weineroney was offered copies of [facility] publications; Are You a Hospital Inpatient or Outpatient?and Medicare Rights and Protections. Notice has been signed along with date and time, a copy of notice made and given to patient/sales representative electric service. Original notice to be scanned into patient's [...] Procedure Name Priority Date/Time Associated Diagnosis Comments SENIOR EDITOR SCAN 11/26/2016 12:00 AM EDT POCT GLUCOSE Routine 11/25/2016 7:42 AM EDT EKG 12-LEAD Routine 11/25/2016 7:23 AM EDT Unstable angina BMP W/FASTING GLUCOSE Routine 11/25/2016 4:52 AM EDT HEMOGRAM Routine 11/25/2016 4:52 AM EDT DIFFERENTIAL, AUTOMATED Routine 11/26/19 4:52 AM EDT CARDIAC ENZYMES ([facility]) Routine 11/25/2016 4:52 AM EDT CBC (WITH [...] Routine 11/22/2016 12:11 PM EDT CARDIAC ENZYMES ([facility]) STAT 11/22/2016 10:06 AM EDT APTT Routine [...] 11/23/19 17 3:58 AM EDT CARDIAC ENZYMES ([facility]) Routine 11/22/2016 3:58 AM EDT APTT STAT 11/22/2016 3:58 AM EDT CBC (WITH DIFF) Routine 11/22/2016 3:58 AM EDT LIPID PANEL (REFLEX DIRECT LDL) Routine 11/22/2016 3:58 AM EDT EKG 12-LEAD STAT 11/21/2016 8:34 PM EDT Unstable angina HEMOGRAM STAT 11/21/2016 8:32 PM EDT DIFFERENTIAL, AUTOMATED STAT 11/22/19 17 8:32 PM EDT CARDIAC ENZYMES ([facility]) STAT 11/21/2016 8:32 PM EDT APTT STAT [...] in this encounter Results * SCAN DOC: SENIOR EDITOR (11/26/2016 12:00 AM EDT) Anatomical Region Laterality Modality Other Narrative 11/26/2016 12:00 AM EDT Ordered by an unspecified provider. Scanning Provider MEDIA MGR SCAN EXT O RDR/RSLT * POCT Glucose (11/25/2016 7:42 AM EDT) [facility] Glucose, POC 123 65 - 199 mg/dL [facility] Comment: Supplemental ranges: <140 mg/dL before meals <180 mg/dL all other times of the day Blood specimen (specimen) 11/25/2016 7:42 AM EDT 11/25/2016 7:42 AM EDT Roque Sanches MD POINT OF CARE TEST O RDERABLES Performing Organization Address [facility] Co de Phone Number [facility] [place] [address] * EKG 12 Lead (11/25/2016 7:23 AM EDT) Ventricular rate 70 BPM MUSE SYSTEM Atrial Rate 70 BPM MUSE SYSTEM P-R Interval 140 ms MUSE SYSTEM QRS Duration 88 ms MUSE SYSTEM Q-T Interval 388 ms MUSE SYSTEM QTC Calculated (Bezet) 419 ms MUSE SYSTEM Calculated P [place] 3 degrees MUSE SYSTEM Calculated R [place] 19 degrees MUSE SYSTEM Calculated T [place] 42 degrees MUSE SYSTEM INTERPRETATION Normal sinus rhythm Normal ECG When compared with ECG of 24-NOV-2016 19:05, (unconfirmed) No significant change was found I personally reviewed the tracing and edited the fellows interpretation Confirmed by fellow MD Kalin, Nessa Lee ([id number]) on 11/25/2016 10:44:22 AM Confirmed by MD Meli, Tigre ([id number]) on 11/25/2016 5:24:33 PM MUSE SYSTEM 11/25/2016 7:23 AM EDT 11/25/2016 5:24 PM EDT Roque Sanches MD ECG ORDERABLES Performing Organization Address [facility] Co de Phone Number MUSE SYSTEM * Cardiac Enzymes (11/25/2016 4:52 AM EDT) Troponin-T <0.03 <=0.03 ng/mL [facility] Comment: 0.03 ng/mL: Represents [...] consensus document of the Joint Society of Cardiology/[place] College of Cardiology Committee for the redefinition of myocardial infarction. ??Journal of the [place] College of Cardiology 2000; 36: 959-969] Creatine Kinase 139 0 - 200 unit/L [facility] Comment:result rechecked-sb Blood specimen (specimen) Venous Draw / Unknown 11/25/2016 4:52 AM EDT 11/25/2016 5:41 AM EDT Narrative Resulting Agency Comment Spec In Lab Roque Sanches MD CHEMISTRY ORDERABLES [facility] [place] [address] * Differential, Automated (11/25/2016 4:52 AM EDT) Neutrophil % 61.6 % [facility] Neutrophil Absolute 5.56 1.70 - 6.10 x10(3)/[facility] Lymph % 26.8 % [facility] Lymphocytes Abs 2.4 0.9 - 3.2 x10(3)/[facility] Monocyte % 6.3 % [facility] Monocyte Abs 0.6 0.3 - 0.9 x10(3)/[facility] Eos % 4.1 % [facility] Eosinophils Abs 0.4 0.0 - 0.4 x10(3)/[facility] Basophil % 0.8 % [facility] Baso Absolute 0.1 0.0 - 0.1 x10(3)/[facility] Immature Gran % 0.40 % [facility] Comment: Immature granulocytes(IG's)percentage and absolute count will include metamyelocytes, myelocytes, and promyelocytes. Blood smears from CBCs yielding IG's will be scanned manually for concordance. If this scan disagrees with the automated IG or if promyelocytes are noted, a manual differential will be performed. Immature Gran Absolute 0.04 0.00 - 0.04 x10(3)/[facility] Blood specimen (specimen) 11/25/2016 4:52 AM EDT 11/25/2016 5:37 AM EDT Narrative Resulting Agency Comment Spec In Lab Roque Sanches MD HEMATOLOGY ORDERABLE S [facility] [place] [address] * (ABNORMAL) Hemogram (11/25/2016 4:52 AM EDT) White Blood Cell 9.0 4.0 - 9.5 x10(3)/[facility] Red Blood Cell 5.04 4.58 - 5.54 x10(6)/[facility] Hemoglobin 14.5 13.7 - 16.5 gm/dL [facility] Hematocrit 44.2 40.5 - 48.5 % [facility] Mean Cell Volume 87.7 82.9 - 93.1 [facility] Mean Cell Hemoglobin 28.8 27.5 - 32.1 pg [facility] Mean Cell Hemoglobin Concentration 32.8 32.0 - 35.7 gm/dL [facility] Platelet 214 145 - 357 x10(3)/[facility] RDW Standard Deviation 45.1(H) 36.0 - 45.0 [facility] RDW coefficient of variation 14.0(H) 11.4 - 13.8 % [facility] Mean Platelet Volume 11.1 7.6 - 12.9 [facility] NRBC% auto 0.0 % [facility] NRBC Absolute 0.000 0.000 - 0.000 x10(3)/[facility] Blood specimen (specimen) 11/25/2016 4:52 AM EDT 11/25/2016 5:37 AM EDT Narrative Resulting Agency Comment Spec In Lab Roque Sanches MD HEMATOLOGY ORDERABLE S [facility] [place] [address] * (ABNORMAL) BMP w/fasting Glucose (11/25/2016 4:52 AM EDT) Glucose Fasting 113(H) 65 - 99 mg/dL [facility] [...] of Diabetes Mellitus, Position Statement from the [place] Diabetes Association. ??Diabetes Care, Volume 33, Supplement 1, Aug 2009 Blood Urea Nitrogen 10 10 - 20 mg/dL [facility] Creatinine 0.87 0.80 - 1.50 mg/dL [facility] Comment: Please note that the pediatric reference intervals supplied above were not validated at [facility]. Results from pediatric patients should be interpreted in conjunction to the patient's age, height and muscle mass. Sodium 142 135 - 145 mmol/L [facility] [...] questions. Chloride 108(H) 98 - 107 mmol/L [facility] Carbon Dioxide 19(L) 22 - 31 mmol/L [facility] Anion Gap 15 5 - 15 mmol/L [facility] Calcium 9.5 8.5 - 10.5 mg/dL [facility] [...] the following links into your internet browser. [email or web address] Blood specimen (specimen) 11/25/2016 4:52 AM EDT 11/25/2016 5:37 AM EDT Narrative Resulting Agency Comment Spec In Lab Roque Sanches MD CHEMISTRY ORDERABLES Performing Organization Address [facility] Co de Phone Number [facility] [place] [phone] * EKG 12 Lead (11/24/2016 7:05 PM EDT) Ventricular rate 85 BPM MUSE SYSTEM Atrial Rate 85 BPM MUSE SYSTEM P-R Interval 152 ms MUSE SYSTEM QRS Duration 86 ms MUSE SYSTEM Q-T Interval 354 ms MUSE SYSTEM QTC Calculated (Bezet) 421 ms MUSE SYSTEM Calculated P [place] 55 degrees MUSE SYSTEM Calculated R [place] 44 degrees MUSE SYSTEM Calculated T [place] 40 degrees MUSE SYSTEM INTERPRETATION Normal sinus rhythm Normal ECG When compared with ECG of 24-NOV-2016 07:20, No significant change was found Confirmed by Wale Mckeon MD ([id number]) on 11/25/2016 4:12:17 PM MUSE SYSTEM 11/24/2016 7:05 PM EDT 11/25/2016 4:12 PM EDT Roque Sanches MD ECG ORDERABLES Performing Organization Address [facility] Co de Phone Number MUSE SYSTEM * CARDIAC CATHETERIZATION (11/24/2016 6:04 PM EDT) Anatomical Region Laterality Modality Other Narrative 11/24/2016 6:23 PM EDT ?[facility] ? Cardiac Catheterization/Intervention Report ? Patient Name: Romeo Coelho. ? Procedure Date: 11/24/2016 ? A #: [id number] ? Primary Physician: Alexandru, Anton T ? Case #: [id number] ? File Name: [id number] ? Catheterization Order Number: [id number] ? [facility] ? Final Report [place], [place] ? Patient Name: ? Romeo Coelho ? ID#: ?[id number] ? : ?1965 ? Procedure Date: ? November 24, 2016 ?Case #: ? [id number] ? Room: ? 6 ? Case Physician: [...] presented with: unstable angina (w/i 60 days). [place] ?Cardiovascular Society angina class was III. This [...] medical regimen was changed as ?follows: Continue rodent exterminator aspirin and plavix. ? Comments: ?Classic anginal [...] Procedure Note Anton Horvath MD - 11/25/2016 [facility] Cardiac Catheterization/Intervention Report Patient Name: Romeo Coelho Procedure Date: 11/24/2016 A #: [id number] Primary Physician: Anton Horvath Case #: [id number] File Name: [id number] Catheterization Order Number: [id number] [facility] FinalReport [place], [place] Patient Name: Romeo Coelho ID#:[id number] :1965 Procedure Date: November 24, 2016 Case [...] presented with: unstable angina (w/i 60 days). [place] Cardiovascular Society angina class was III. This [...] time was 8.0 minutes, dose area product [id number] mGYcm2 and air kerma was 1,689 mGY. [...] medical regimen was changed as follows: Continue fdc aspirin and plavix. Comments: Classic anginal symptoms refractory to medications. The attending physician was present for the entire procedure. Dr. nAton Horvath M.D. performed the coronary angiography, leftheart catheterization and stent insertion-coronary. Anton Horvath M.D. Electronically Signed by: Anton Horvath M.D. Report Finalized: 11/24/2016 18:17 Report Last Ammended: 11/25/2016 11:39 Anton Horvath MD CARDIAC CATH ORDERAB LES * POCT Glucose (11/24/2016 4:27 PM EDT) Glucose, POC 88 65 - 199 mg/dL [facility] Comment: Supplemental ranges: <140 mg/dL before meals <180 mg/dL all other times of the day Blood specimen (specimen) 11/24/2016 4:27 PM EDT 11/24/2016 4:27 PM EDT Roque Sanches MD POINT OF CARE TEST O RDERABLES [facility] [place] [address] * POCT Glucose (11/24/2016 11:56 AM EDT) Glucose, POC 110 65 - 199 mg/dL [facility] Comment: Supplemental ranges: <140 mg/dL before meals <180 mg/dL all other times of the day Blood specimen (specimen) 11/24/2016 11:56 AM EDT 11/24/2016 11:56 AM EDT Roque Sanches MD POINT OF CARE TEST O RDERAAIRAM Performing Organization Address [facility] Co de Phone Number [facility] [place] [address] * POCT Glucose (11/24/2016 7:43 AM EDT) Glucose, POC 131 65 - 199 mg/dL [facility] Comment: Supplemental ranges: <140 mg/dL before meals <180 mg/dL all other times of the day Blood specimen (specimen) 11/24/2016 7:43 AM EDT 11/24/2016 7:43 AM EDT Roque Sanches MD POINT OF CARE TEST O RDERAAIRAM Performing Organization Address [facility] Co de Phone Number [facility] [place] [address] * EKG 12 Lead (11/24/2016 7:20 AM EDT) Ventricular rate 65 BPM MUSE SYSTEM Atrial Rate 65 BPM MUSE SYSTEM P-R Interval 158 ms MUSE SYSTEM QRS Duration 90 ms MUSE SYSTEM Q-T Interval 396 ms MUSE SYSTEM QTC Calculated (Bezet) 411 ms MUSE SYSTEM Calculated P [place] 51 degrees MUSE SYSTEM Calculated R [place] 26 degrees MUSE SYSTEM Calculated T [place] 24 degrees MUSE SYSTEM INTERPRETATION Normal sinus rhythm Normal ECG When compared with ECG of 23-NOV-2016 07:16, No significant change was found I personally reviewed the tracing and edited the fellows interpretation Confirmed by fellow MD Kalin, Nessa Lee ([id number]) on 11/24/2016 8:23:27 AM Confirmed by MD Margoth, Rajni ([id number]) on 11/24/2016 6:22:34 PM MUSE SYSTEM 11/24/2016 7:20 AM EDT 11/24/2016 6:22 PM EDT Roque Sanches MD ECG ORDERABLES Performing Organization Address [facility]/[place] Co de Phone Number MUSE SYSTEM * (ABNORMAL) Differential, Automated (11/24/2016 6:20 AM EDT) Neutrophil % 54.5 % [facility] Neutrophil Absolute 4.85 1.70 - 6.10 x10(3)/[facility] Lymph % 31.5 % [facility] Lymphocytes Abs 2.8 0.9 - 3.2 x10(3)/[facility] Monocyte % 8.1 % [facility] Monocyte Abs 0.7 0.3 - 0.9 x10(3)/[facility] Eos % 4.4 % [facility] Eosinophils Abs 0.4 0.0 - 0.4 x10(3)/[facility] Basophil % 0.9 % [facility] Baso Absolute 0.1 0.0 - 0.1 x10(3)/[facility] Immature Gran % 0.60 % [facility] Comment: Immature granulocytes(IG's)percentage and absolute count will include metamyelocytes, myelocytes, and promyelocytes. Blood smears from CBCs yielding IG's will be scanned manually for concordance. If this scan disagrees with the automated IG or if promyelocytes are noted, a manual differential will be performed. Immature Gran Absolute 0.05(H) 0.00 - 0.04 x10(3)/[facility] Blood specimen (specimen) 11/24/2016 6:20 AM EDT 11/24/2016 6:34 AM EDT Narrative Resulting Agency Comment Spec In Lab Drew Pepe MD HEMATOLOGY ORDERABLE S [facility] [place] [address] * (ABNORMAL) Hemogram (11/24/2016 6:20 AM EDT) White Blood Cell 8.9 4.0 - 9.5 x10(3)/[facility] Red Blood Cell 4.93 4.58 - 5.54 x10(6)/[facility] Hemoglobin 14.7 13.7 - 16.5 gm/dL [facility] Hematocrit 43.2 40.5 - 48.5 % [facility] Mean Cell Volume 87.6 82.9 - 93.1 fL [facility] Mean Cell Hemoglobin 29.8 27.5 - 32.1 pg [facility] Mean Cell Hemoglobin Concentration 34.0 32.0 - 35.7 gm/dL [facility] Platelet 203 145 - 357 x10(3)/mc L [facility] RDW Standard Deviation 44.3 36.0 - 45.0 fL [facility] RDW coefficient of variation 13.9(H) 11.4 - 13.8 % [facility] Mean Platelet Volume 11.0 7.6 - 12.9 fL [facility] NRBC% auto 0.0 % [facility] NRBC Absolute 0.000 0.000 - 0.000 x10(3)/mc L [facility] Blood specimen (specimen) 11/24/2016 6:20 AM EDT 11/24/2016 6:34 AM EDT Narrative Resulting Agency Comment Spec In Lab Drew Pepe MD HEMATOLOGY ORDERABLE S [facility] [place] [address] * (ABNORMAL) APTT (11/24/2016 6:20 AM EDT) [facility] Partial Thromboplastin Time 110(H) 25 - 35 sec [facility] Comment: The recommended therapeutic range for full dose, unfractionated heparin at [facility] is 80 ? 114 seconds. The use of the anti-Xa (heparin) level rather than the PTT is recommended for monitoring anticoagulation intensity in critically ill patients receiving unfractionated heparin by continuous IV infusion. Blood specimen (specimen) 11/24/2016 6:20 AM EDT 11/24/2016 6:34 AM EDT Narrative Resulting Agency Comment Spec In Lab Drew Pepe MD HEMATOLOGY ORDERABLE S Performing Organization Address [facility]/[place] Co de Phone Number [facility] [place] [address] * (ABNORMAL) APTT (11/23/2016 11:27 PM EDT) Partial Thromboplastin Time 130(H) 25 - 35 sec [facility] Comment: The recommended therapeutic range for full dose, unfractionated heparin at [facility] is 80 ? 114 seconds. The use of the anti-Xa (heparin) level rather than the PTT is recommended for monitoring anticoagulation intensity in critically ill patients receiving unfractionated heparin by continuous IV infusion. Blood specimen (specimen) 11/23/2016 11:27 PM EDT 11/23/2016 11:30 PM EDT Narrative Resulting Agency Comment Spec In Lab Drew Pepe MD HEMATOLOGY ORDERABLE S Performing Organization Address [facility]/[place] Co de Phone Number [facility] [place] [address] * POCT Glucose (11/23/2016 7:36 PM EDT) Glucose, POC 131 65 - 199 mg/dL [facility] Comment: Supplemental ranges: <140 mg/dL before meals <180 mg/dL all other times of the day Blood specimen (specimen) 11/23/2016 7:36 PM EDT 11/23/2016 7:36 PM EDT Roque Sanches MD POINT OF CARE TEST O RDERABLES Performing Organization Address [facility]/ZIP Co de Phone Number [facility] [place] [address] * POCT Glucose (11/23/2016 5:20 PM EDT) Glucose, POC 107 65 - 199 mg/dL [facility] Comment: Supplemental ranges: <140 mg/dL before meals <180 mg/dL all other times of the day Blood specimen (specimen) 11/23/2016 5:20 PM EDT 11/23/2016 5:20 PM EDT Roque Sanches MD POINT OF CARE TEST O EVITA Performing Organization Address [facility] Co de Phone Number [facility] [place] [address] * (ABNORMAL) APTT (11/23/2016 12:39 PM EDT) Partial Thromboplastin Time 68(H) 25 - 35 sec [facility] Comment: The recommended therapeutic range for full dose, unfractionated heparin at [facility] is 80 ? 114 seconds. The use of the anti-Xa (heparin) level rather than the PTT is recommended for monitoring anticoagulation intensity in critically ill patients receiving unfractionated heparin by continuous IV infusion. Blood specimen (specimen) 11/23/2016 12:39 PM EDT 11/23/2016 12:51 PM EDT Narrative Resulting Agency Comment Spec In Lab Roque Sanches MD HEMATOLOGY ORDERABLE S Performing Organization Address [facility] de Phone Number [facility] [place] [address] * POCT Glucose (11/23/2016 11:47 AM EDT) Glucose, POC 116 65 - 199 mg/dL [facility] Comment: Supplemental ranges: <140 mg/dL before meals <180 mg/dL all other times of the day Blood specimen (specimen) 11/23/2016 11:47 AM EDT 11/23/2016 11:47 AM EDT Roque Sanches MD POINT OF CARE TEST O EVITA Performing Organization Address [facility] Co de Phone Number [facility] [place] [address] * POCT Glucose (11/23/2016 7:36 AM EDT) Glucose, POC 122 65 - 199 mg/dL [facility] Comment: Supplemental ranges: <140 mg/dL before meals <180 mg/dL all other times of the day Blood specimen (specimen) 11/23/2016 7:36 AM EDT 11/23/2016 7:36 AM EDT Roque Sanches MD POINT OF CARE TEST O RDERABLES Performing Organization Address [facility] de Phone Number [facility] [place] [address] * EKG 12 Lead (11/23/2016 7:16 AM EDT) Ventricular rate 72 BPM MUSE SYSTEM Atrial Rate 72 BPM MUSE SYSTEM P-R Interval 158 ms MUSE SYSTEM QRS Duration 90 ms MUSE SYSTEM Q-T Interval 382 ms MUSE SYSTEM QTC Calculated (Bezet) 418 ms MUSE SYSTEM Calculated P [place] 47 degrees MUSE SYSTEM Calculated R [place] 28 degrees MUSE SYSTEM Calculated T [place] 32 degrees MUSE SYSTEM INTERPRETATION Normal sinus rhythm Normal ECG When compared with ECG of 22-NOV-2016 07:12, No significant change was found Confirmed by MD ANIVAL, DEBORAH ([id number]) on 11/23/2016 1:58:05 PM MUSE SYSTEM 11/23/2016 7:16 AM EDT 11/23/2016 1:58 PM EDT Roque Sanches MD ECG ORDERABLES Performing Organization Address [facility] de Phone Number MUSE SYSTEM * (ABNORMAL) BMP w/fasting Glucose (11/23/2016 6:24 AM EDT) Glucose Fasting 143(H) 65 - 99 mg/dL [facility] of Diabetes Mellitus, Position Statement from the [place] [employer]. ??Diabetes Care, Volume 33, Supplement 1, Aug 2009 Blood Urea Nitrogen 10 10 - 20 mg/dL [facility] Creatinine 0.98 0.80 - 1.50 mg/dL [facility] Comment: Please note that the pediatric reference intervals supplied above were not validated at [facility]. Results from pediatric patients should be interpreted in conjunction to the patient's age, height and muscle mass. Sodium 142 135 - 145 mmol/L [facility] Anion Gap 16(H) 5 - 15 mmol/L [facility] Calcium 9.6 8.5 - 10.5 mg/dL [facility] the following links into your internet browser. [email or web address] Blood specimen (specimen) 11/23/2016 6:24 AM EDT 11/23/2016 6:32 AM EDT Narrative Resulting Agency Comment Spec In Lab Roque Sanches MD CHEMISTRY ORDERABLES Performing Organization Address City/[facility]/ZIP Co de Phone Number [facility] [place] [address] * (ABNORMAL) APTT (11/23/2016 6:24 AM EDT) [facility] Partial Thromboplastin Time 103(H) 25 - 35 sec [facility] Comment: The recommended therapeutic range for full dose, unfractionated heparin at [facility] is 80 ? 114 seconds. The use of the anti-Xa (heparin) level rather than the PTT is recommended for monitoring anticoagulation intensity in critically ill patients receiving unfractionated heparin by continuous IV infusion. Blood specimen (specimen) 11/23/2016 6:24 AM EDT 11/23/2016 6:32 AM EDT Narrative Resulting Agency Comment Spec In Lab Drew Pepe MD HEMATOLOGY ORDERABLE S Performing Organization Address [facility]/ZIP Co de Phone Number [facility] [place] [address] * Differential, Automated (11/23/2016 6:24 AM EDT) [facility] Neutrophil % 58.2 % [facility] Neutrophil Absolute 4.63 1.70 - 6.10 x10(3)/[facility] Lymph % 29.0 % [facility] Lymphocytes Abs 2.3 0.9 - 3.2 x10(3)/[facility] Monocyte % 7.3 % [facility] Monocyte Abs 0.6 0.3 - 0.9 x10(3)/[facility] Eos % 4.1 % [facility] Eosinophils Abs 0.3 0.0 - 0.4 x10(3)/[facility] Basophil % 1.0 % [facility] Baso Absolute 0.1 0.0 - 0.1 x10(3)/[facility] Immature Gran % 0.40 % [facility] Comment: Immature granulocytes(IG's)percentage and absolute count will include metamyelocytes, myelocytes, and promyelocytes. Blood smears from CBCs yielding IG's will be scanned manually for concordance. If this scan disagrees with the automated IG or if promyelocytes are noted, a manual differential will be performed. Immature Gran Absolute 0.03 0.00 - 0.04 x10(3)/mcL [facility] Blood specimen (specimen) 11/23/2016 6:24 AM EDT 11/23/2016 6:32 AM EDT Narrative Resulting Agency Comment Spec In Lab Drew Pepe MD HEMATOLOGY ORDERABLE S [facility] [place] [address] * (ABNORMAL) Hemogram (11/23/2016 6:24 AM EDT) White Blood Cell 8.0 4.0 - 9.5 x10(3)/mc L [facility] Red Blood Cell 5.00 4.58 - 5.54 x10(6)/mc L [facility] Hemoglobin 14.5 13.7 - 16.5 gm/dL [facility] Hematocrit 43.1 40.5 - 48.5 % [facility] Mean Cell Volume 86.2 82.9 - 93.1 fL [facility] Mean Cell Hemoglobin 29.0 27.5 - 32.1 pg [facility] Mean Cell Hemoglobin Concentration 33.6 32.0 - 35.7 gm/dL [facility] Platelet 207 145 - 357 x10(3)/mc L [facility] RDW Standard Deviation 44.5 36.0 - 45.0 [facility] RDW coefficient of variation 14.0(H) 11.4 - 13.8 % [facility] Mean Platelet Volume 10.4 7.6 - 12.9 fL [facility] NRBC% auto 0.0 % [facility] NRBC Absolute 0.000 0.000 - 0.000 x10(3)/mc L [facility] Blood specimen (specimen) 11/23/2016 6:24 AM EDT 11/23/2016 6:32 AM EDT Narrative Resulting Agency Comment Spec In Lab Drew Pepe MD HEMATOLOGY ORDERABLE S Performing Organization Address [facility]/ZIP Co de Phone Number [facility] [place] [address] * (ABNORMAL) APTT (11/23/2016 12:03 AM EDT) Partial Thromboplastin Time 116(H) 25 - 35 sec [facility] Comment: The recommended therapeutic range for full dose, unfractionated heparin at [facility] is 80 ? 114 seconds. The use of the anti-Xa (heparin) level rather than the PTT is recommended for monitoring anticoagulation intensity in critically ill patients receiving unfractionated heparin by continuous IV infusion. Blood specimen (specimen) 11/23/2016 12:03 AM EDT 11/23/2016 12:07 AM EDT Narrative Resulting Agency Comment Spec In Lab Drew Pepe MD HEMATOLOGY ORDERABLE S Performing Organization Address [facility]/[place] Co de Phone Number [facility] [place] [address] * POCT Glucose (11/22/2016 7:45 PM EDT) Glucose, POC 102 65 - 199 mg/dL [facility] Comment: Supplemental ranges: <140 mg/dL before meals <180 mg/dL all other times of the day Blood specimen (specimen) 11/22/2016 7:45 PM EDT 11/22/2016 7:45 PM EDT Roque Sanches MD POINT OF CARE TEST O RDERABLES Performing Organization Address [facility]/[place] Co de Phone Number [facility] [place] [address] * Cardiac Enzymes (11/22/2016 5:11 PM EDT) [facility] Troponin-T <0.03 <=0.03 ng/mL [facility] Comment: 0.03 ng/mL: Represents [...] consensus document of the Joint Society of Cardiology/[place] [employer] Committee for the redefinition of myocardial infarction. ??Journal of the [place] [employer] 2000; 36: 959-969] Creatine Kinase 46 0 - 200 unit/L [facility] Blood specimen (specimen) 11/22/2016 5:11 PM EDT 11/22/2016 5:15 PM EDT Narrative Resulting Agency Comment Spec In Lab Roque Sanches MD CHEMISTRY ORDERABLES [facility] [place] [address] * (ABNORMAL) APTT (11/22/2016 5:11 PM EDT) [facility] Partial Thromboplastin Time 76(H) 25 - 35 sec [facility] Comment: The recommended therapeutic range for full dose, unfractionated heparin at [facility] is 80 ? 114 seconds. The use of the anti-Xa (heparin) level rather than the PTT is recommended for monitoring anticoagulation intensity in critically ill patients receiving unfractionated heparin by continuous IV infusion. Blood specimen (specimen) 11/22/2016 5:11 PM EDT 11/22/2016 5:15 PM EDT Narrative Resulting Agency Comment Spec In Lab Drew Pepe MD HEMATOLOGY ORDERABLE S Performing Organization Address [facility]/[place] Co de Phone Number [facility] [place] [address] * POCT Glucose (11/22/2016 4:50 PM EDT) Glucose, POC 100 65 - 199 mg/dL [facility] Comment: Supplemental ranges: <140 mg/dL before meals <180 mg/dL all other times of the day Blood specimen (specimen) 11/22/2016 4:50 PM EDT 11/22/2016 4:50 PM EDT Roque Sanches MD POINT OF CARE TEST O RDERABLES Performing Organization Address [facility]/[place] Co de Phone Number [facility] [place] [address] * ECHO COMPLETE W CONTRAST (11/22/2016 12:59 PM EDT) EF 60 [facility]ART[facility] SYSTEM Anatomical Region Laterality Modality Other 11/22/2016 Narrative 11/22/2016 1:38 PM EDT Procedure: ?Transthoracic Echocardiogram Patient: ?COELHOCOLE DOHERTY A ? (Age): 1965(51y) Med Rec#: ? [id number] ?Sex: ?M ? Site Loc: ? [facility] ?Ht / Wt: ??178(cm)/95(kg) Pt. Loc: ?Adult Floor ? BSA: ?2.13 Study Date: ?? 11/22/2016 ?Pt. Type: Inpatient Tape: ? Referring: Roque Sanches ([id number]) Reading: Roque Sanches ([id number]) Multimedia Services Coordinator: Jorge A Street Diagnosis: *ICD-10-PCS Unstable angina (I20.0) CPT Codes: *Echo Full (40174) *Spectral Doppler (32441) *Color Doppler (76258) *Optison (88252AB) Rhythm: ? Sinus BP: ? 113/70 SUMMARY: [...] E-wave Vmax ?0.5 ?m/sec ? MV deceleration [id number] ?msec ? MV A-wave Vmax ?0.4 ?m/sec [...] ? Mid-Inferior ?Normal ? Mid-Inferoseptal ?Normal ? Edwards-Septal ? Normal ? Edwards-Anterior ? Normal ? Edwards-Lateral ?Normal ? Edwards-Inferior ? Normal ? Edwards-Tip ?Normal ? This report has been electronically signed by: Roque Sanches M.D. ? 11/22/2016 13:38:29 Images reviewed and interpretation verified [facility] Procedure Note Roque Sanches MD - 11/22/2016 Procedure: Transthoracic Echocardiogram Patient: LAQUITA HARRIS(Age): 1965(51y) Med Rec#: [id number] Sex: M Site Loc: [facility] Ht / Wt: 178(cm)/95(kg) Pt. Loc: Adult Floor BSA: 2.13 Study Date: 11/22/2016 Pt. Type: Inpatient Tape: Referring: Roque Sanches ([id number]) Reading: Roque Sanches () Multimedia Services Coordinator: Jorge A Street Diagnosis: *ICD-10-PCS Unstable angina (I20.0) CPT Codes: *Echo Full (08877) *Spectral Doppler (52431) *Color Doppler (45653) *Optison ([id number]) Rhythm: Sinus BP: 113/70 SUMMARY: 1. The [...] MV E-wave Vmax 0.5 m/sec MV deceleration [id number] msec MV A-wave Vmax 0.4 m/sec MV [...] Hypokinetic Mid-Posterolateral Hypokinetic Mid-Inferior Normal Mid-Inferoseptal Normal Edwards-Septal Normal Edwards-Anterior Normal Edwards-Lateral Normal Edwards-Inferior Normal Edwards-Tip Normal This report has been electronically signed by: Roque Sanches M.D. 11/22/2016 13:38:29 Images reviewed and interpretation verified [facility] Drew Pepe MD ECHO ORDERABLES * POCT Glucose (11/22/2016 12:11 PM EDT) Glucose, POC 94 65 - 199 mg/dL [facility] Comment: Supplemental ranges: <140 mg/dL before meals <180 mg/dL all other times of the day Blood specimen (specimen) 11/22/2016 12:11 PM EDT 11/22/2016 12:11 PM EDT Rouqe Sanches MD POINT OF CARE TEST O RDERABLES [facility] [place] [address] * Potassium (11/22/2016 10:06 AM EDT) Potassium 3.8 3.5 - 5.0 mmol/L [facility] [...] In Lab Drew Pepe MD CHEMISTRY ORDERABLES [facility] [place] [address] * Cardiac Enzymes (11/22/2016 10:06 AM EDT) Pathologist [facility] Troponin-T <0.03 <=0.03 ng/mL [facility] Comment: 0.03 ng/mL: Represents [...] consensus document of the Joint Society of Cardiology/[place] [employer] Committee for the redefinition of myocardial infarction. ??Journal of the [place] [employer] of [employer]iology 2000; 36: 959-969] Creatine Kinase 48 0 - 200 unit/L [facility] Blood specimen (specimen) 11/22/2016 10:06 AM EDT 11/22/2016 10:16 AM EDT Narrative Resulting Agency Comment Spec In Lab Drew Pepe MD CHEMISTRY ORDERABLES Performing Organization Address City/[facility]/ZIP Co de Phone Number [facility] [place] [address] * (ABNORMAL) APTT (11/22/2016 10:06 AM EDT) [facility] Signature Partial Thromboplastin Time 104(H) 25 - 35 sec [facility] Comment: The recommended therapeutic range for full dose, unfractionated heparin at [facility] is 80 ? 114 seconds. The use of the anti-Xa (heparin) level rather than the PTT is recommended for monitoring anticoagulation intensity in critically ill patients receiving unfractionated heparin by continuous IV infusion. Blood specimen (specimen) 11/22/2016 10:06 AM EDT 11/22/2016 10:16 AM EDT Narrative Resulting Agency Comment Spec In Lab Roque Sanches MD HEMATOLOGY ORDERABLE S Performing Organization Address [facility]/ZIP Co de Phone Number [facility] [place] [address] * XR Chest PA & Lateral (Generic) [...] Glucose, POC 135 65 - 199 mg/dL [facility] Comment: Supplemental ranges: <140 mg/dL before meals <180 mg/dL all other times of the day Blood specimen (specimen) 11/22/2016 7:44 AM EDT 11/22/2016 7:44 AM EDT Roque Sanches MD POINT OF CARE TEST O RDERABLES Performing Organization Address [facility]/[place] Co de Phone Number [facility] [place] [address] * EKG 12 Lead (11/22/2016 7:12 AM EDT) Ventricular rate 74 BPM MUSE SYSTEM Atrial Rate 74 BPM MUSE SYSTEM P-R Interval 146 ms MUSE SYSTEM QRS Duration 92 ms MUSE SYSTEM Q-T Interval 382 ms MUSE SYSTEM QTC Calculated (Bezet) 424 ms MUSE SYSTEM Calculated P [place] 34 degrees MUSE SYSTEM Calculated R [place] 26 degrees MUSE SYSTEM Calculated T [place] 27 degrees MUSE SYSTEM INTERPRETATION Normal sinus rhythm Normal ECG When compared with ECG of 21-NOV-2016 20:34, (unconfirmed) No significant change was found Confirmed by MD Anton, Asif (57) on 11/22/2016 10:51:21 AM MUSE SYSTEM 11/22/2016 7:12 AM EDT 11/22/2016 10:51 AM EDT Roque Sanches MD ECG ORDERABLES Performing Organization Address City/[facility]/ZIP Co de Phone Number MUSE SYSTEM * (ABNORMAL) Lipid Panel (11/22/2016 3:58 AM EDT) Cholesterol, Total 125 <=239 mg/dL [facility] Triglyceride 171 <=199 mg/dL [facility] HDL Cholesterol 39(L) >=40 mg/dL [facility] LDL Cholesterol 52 <=190 mg/dL [facility] Cholesterol/HDL Ratio 3.2 ratio [facility] Lipid Interpretation See Note [facility] Comment: Lipid management should be guided by a patient? s ASCVD risk, goals and preferences. ACC/AHA Guidelines recommend high intensity statin if clinical ASCVD or LDL greater than or equal to 190 mg/dL. http://circ.ahajournals.org/content/early/.cir.8325824334.34410.7a Adults aged 40-75 with LDL 70-189 mg/dL should have their 10 year ASCVD risk estimated with the ACC/AHA ASCVD risk defect cutter http://tools.acc.org/FKDQX-Tksc-Jsqkngdqc/ Statin should be discussed if risk greater [...] In Lab Roque Sanches MD CHEMISTRY ORDERABLES [facility] [place] [address] * Cardiac Enzymes (11/22/2016 3:58 AM EDT) Troponin-T <0.03 <=0.03 ng/mL [facility] Comment: 0.03 ng/mL: Represents [...] consensus document of the Joint Society of Cardiology/[place] [employer] Committee for the redefinition of myocardial infarction. ??Journal of the [place] College of Cardiology 2000; 36: 959-969] Creatine Kinase 50 0 - 200 unit/L [facility] Blood specimen (specimen) Venous Draw / Unknown 11/22/2016 3:58 AM EDT 11/22/2016 4:13 AM EDT Narrative Resulting Agency Comment Spec In Lab Roque Sanches MD CHEMISTRY ORDERABLES Performing Organization Address City/State/[place] Co de Phone Number [facility] [place] [phone] * Differential, Automated (11/22/2016 3:58 AM EDT) Neutrophil % 56.6 % [facility] Neutrophil Absolute 4.86 1.70 - 6.10 x10(3)/[facility] Lymph % 30.3 % [facility] Lymphocytes Abs 2.6 0.9 - 3.2 x10(3)/[facility] Monocyte % 7.7 % [facility] Monocyte Abs 0.7 0.3 - 0.9 x10(3)/[facility] Eos % 4.5 % [facility] Eosinophils Abs 0.4 0.0 - 0.4 x10(3)/[facility] Basophil % 0.6 % [facility] Baso Absolute 0.0 0.0 - 0.1 x10(3)/[facility] Immature Gran % 0.30 % [facility] Comment: Immature granulocytes(IG's)percentage and absolute count will include metamyelocytes, myelocytes, and promyelocytes. Blood smears from CBCs yielding IG's will be scanned manually for concordance. If this scan disagrees with the automated IG or if promyelocytes are noted, a manual differential will be performed. Immature Gran Absolute 0.03 0.00 - 0.04 x10(3)/mcL [facility] Blood specimen (specimen) 11/22/2016 3:58 AM EDT 11/22/2016 4:13 AM EDT Narrative Resulting Agency Comment Spec In Lab Roque Sanches MD HEMATOLOGY ORDERABLE S [facility] [place] [address] * (ABNORMAL) Hemogram (11/22/2016 3:58 AM EDT) White Blood Cell 8.6 4.0 - 9.5 x10(3)/mc L [facility] Red Blood Cell 4.80 4.58 - 5.54 x10(6)/mc L [facility] Hemoglobin 13.8 13.7 - 16.5 gm/dL [facility] Hematocrit 41.9 40.5 - 48.5 % [facility] Mean Cell Volume 87.3 82.9 - 93.1 fL [facility] Mean Cell Hemoglobin 28.8 27.5 - 32.1 pg [facility] Mean Cell Hemoglobin Concentration 32.9 32.0 - 35.7 gm/dL [facility] Platelet 219 145 - 357 x10(3)/mc L [facility] RDW Standard Deviation 44.7 36.0 - 45.0 fL [facility] RDW coefficient of variation 14.0(H) 11.4 - 13.8 % [facility] Mean Platelet Volume 10.9 7.6 - 12.9 fL [facility] NRBC% auto 0.0 % [facility] NRBC Absolute 0.000 0.000 - 0.000 x10(3)/mc L [facility] Blood specimen (specimen) 11/22/2016 3:58 AM EDT 11/22/2016 4:13 AM EDT Narrative Resulting Agency Comment Spec In Lab Roque Sanches MD HEMATOLOGY ORDERABLE S [facility] [place] [address] * (ABNORMAL) BMP w/fasting Glucose (11/22/2016 3:58 AM EDT) Glucose Fasting 127(H) 65 - 99 mg/dL [facility] of Diabetes Mellitus, Position Statement from the [place] Diabetes Association. ??Diabetes Care, Volume 33, Supplement 1, Aug 2009 Blood Urea Nitrogen 10 10 - 20 mg/dL [facility] Creatinine 0.85 0.80 - 1.50 mg/dL [facility] Comment: Please note that the pediatric reference intervals supplied above were not validated at [facility]. Results from pediatric patients should be interpreted in conjunction to the patient's age, height and muscle mass. Sodium 142 135 - 145 mmol/L [facility] Potassium 3.3(L) 3.5 - 5.0 mmol/L [facility] Calcium 8.8 8.5 - 10.5 mg/dL [facility] [...] the following links into your internet browser. [email or web address] Blood specimen (specimen) 11/22/2016 3:58 AM EDT 11/22/2016 4:13 AM EDT Narrative Resulting Agency Comment Spec In Lab Roque Sanches MD CHEMISTRY ORDERABLES [facility] [place] [address] * (ABNORMAL) APTT (11/22/2016 3:58 AM EDT) [facility] Partial Thromboplastin Time 44(H) 25 - 35 sec [facility] Comment: The recommended therapeutic range for full dose, unfractionated heparin at [facility] is 80 ? 114 seconds. The use of the anti-Xa (heparin) level rather than the PTT is recommended for monitoring anticoagulation intensity in critically ill patients receiving unfractionated heparin by continuous IV infusion. Blood specimen (specimen) 11/22/2016 3:58 AM EDT 11/22/2016 4:13 AM EDT Narrative Resulting Agency Comment Spec In Lab Drew Pepe MD HEMATOLOGY ORDERABLE S Performing Organization Address [facility]/[place] Co de Phone Number [facility] [place] [address] * EKG 12 Lead (11/21/2016 8:34 PM EDT) Ventricular rate 72 BPM MUSE SYSTEM Atrial Rate 72 BPM MUSE SYSTEM P-R Interval 138 ms MUSE SYSTEM QRS Duration 86 ms MUSE SYSTEM Q-T Interval 382 ms MUSE SYSTEM QTC Calculated (Bezet) 418 ms MUSE SYSTEM Calculated P [place] -2 degrees MUSE SYSTEM Calculated R [place] 16 degrees MUSE SYSTEM Calculated T [place] 16 degrees MUSE SYSTEM INTERPRETATION Normal sinus rhythm Normal ECG When compared with ECG of 30-JUL-2013 08:41, No significant change was found Confirmed by MD Anton, Asif (57) on 11/22/2016 10:49:32 AM MUSE SYSTEM 11/21/2016 8:34 PM EDT 11/22/2016 10:49 AM EDT Drew Pepe MD ECG ORDERABLES Performing Organization Address [facility]/[place] Co de Phone Number MUSE SYSTEM * Hemoglobin A1c (11/21/2016 8:32 PM EDT) Hemoglobin A1c 5.6 4.3 - 5.6 % [facility] [...] Mellitus, Diabetes Care 2013; 36: Suppl. 1, C24-24 Estimated Average Glucose 114 mg/dL [facility] [...] resources are available on the ADA website: [email or web address] Ashok PIMENTEL, Abdulkadir J, Jamie R, et al. ??Translating the A1C assay into estimated average glucose values. ??Diabetes Care 2008:31(8):7778-6674. Blood specimen (specimen) Venous Draw / Unknown 11/21/2016 8:32 PM EDT 11/22/2016 12:39 AM EDT Narrative Resulting Agency Comment Spec In Lab Drew Pepe MD CHEMISTRY ORDERABLES Performing Organization Address [facility]/[place] Co de Phone Number [facility] [place] [address] * TSH (11/21/2016 8:32 PM EDT) Thyroid Stimulating Hormone 2.29 0.27 - 4.20 mcIU/mL [facility] Blood specimen (specimen) Venous Draw / Unknown 11/21/2016 8:32 PM EDT 11/21/2016 8:40 PM EDT Narrative Resulting Agency Comment Spec In Lab Drew Pepe MD CHEMISTRY ORDERABLES Performing Organization Address [facility]/[place] Co de Phone Number [facility] [place] [address] * (ABNORMAL) Differential, Automated (11/21/2016 8:32 PM EDT) Neutrophil % 38.3 % [facility] Neutrophil Absolute 3.02 1.70 - 6.10 x10(3)/[facility] Lymph % 48.7 % [facility] Lymphocytes Abs 3.8(H) 0.9 - 3.2 x10(3)/[facility] Monocyte % 7.3 % [facility] Monocyte Abs 0.6 0.3 - 0.9 x10(3)/[facility] Eos % 4.4 % [facility] Eosinophils Abs 0.4 0.0 - 0.4 x10(3)/[facility] Basophil % 0.9 % [facility] Baso Absolute 0.1 0.0 - 0.1 x10(3)/[facility] Immature Gran % 0.40 % [facility] Comment: Immature granulocytes(IG's)percentage and absolute count will include metamyelocytes, myelocytes, and promyelocytes. Blood smears from CBCs yielding IG's will be scanned manually for concordance. If this scan disagrees with the automated IG or if promyelocytes are noted, a manual differential will be performed. Immature Gran Absolute 0.03 0.00 - 0.04 x10(3)/[facility] Blood specimen (specimen) 11/21/2016 8:32 PM EDT 11/21/2016 8:37 PM EDT Narrative Resulting Agency Comment Spec In Lab Drew [place]pe MD HEMATOLOGY ORDERABLE S [facility] [place] [address] * Hemogram (11/21/2016 8:32 PM EDT) White Blood Cell 7.9 4.0 - 9.5 x10(3)/[facility] Red Blood Cell 4.64 4.58 - 5.54 x10(6)/[facility] Hemoglobin 13.9 13.7 - 16.5 gm/dL [facility] Hematocrit 40.6 40.5 - 48.5 % [facility] Mean Cell Volume 87.5 82.9 - 93.1 fL [facility] Mean Cell Hemoglobin 30.0 27.5 - 32.1 pg [facility] Mean Cell Hemoglobin Concentration 34.2 32.0 - 35.7 gm/dL [facility] Platelet 179 145 - 357 x10(3)/[facility] RDW Standard Deviation 44.3 36.0 - 45.0 fL [facility] RDW coefficient of variation 13.8 11.4 - 13.8 % [facility] Mean Platelet Volume 10.8 7.6 - 12.9 fL [facility] NRBC% auto 0.0 % [facility] NRBC Absolute 0.000 0.000 - 0.000 x10(3)/[facility] Blood specimen (specimen) 11/21/2016 8:32 PM EDT 11/21/2016 8:37 PM EDT Narrative Resulting Agency Comment Spec In Lab Drew Pepe MD HEMATOLOGY ORDERABLE S [facility] [place] [address] * Cardiac Enzymes (11/21/2016 8:32 PM EDT) Troponin-T <0.03 <=0.03 ng/mL [facility] Comment: 0.03 ng/mL: Represents [...] consensus document of the Joint Society of Cardiology/[place] [employer] Committee for the redefinition of myocardial infarction. ??Journal of the [place] College of Cardiology 2000; 36: 959-969] Creatine Kinase 64 0 - 200 unit/L [facility] Blood specimen (specimen) 11/21/2016 8:32 PM EDT 11/21/2016 8:37 PM EDT Narrative Resulting Agency Comment Spec In Lab Drew Pepe MD CHEMISTRY ORDERABLES Performing Organization Address [facility]/[place] Co de Phone Number [facility] [place] [address] * APTT (11/21/2016 8:32 PM EDT) Partial Thromboplastin Time 32 25 - 35 sec [facility] Comment: The recommended therapeutic range for full dose, unfractionated heparin at [facility] is 80 ? 114 seconds. The use of the anti-Xa (heparin) level rather than the PTT is recommended for monitoring anticoagulation intensity in critically ill patients receiving unfractionated heparin by continuous IV infusion. Blood specimen (specimen) 11/21/2016 8:32 PM EDT 11/21/2016 8:37 PM EDT Narrative Resulting Agency Comment Spec In Lab Drew Pepe MD HEMATOLOGY ORDERABLE S Performing Organization Address [facility]/[place] Co de Phone Number [facility] [place] [address] * Prothrombin Time (11/21/2016 8:32 PM EDT) Prothrombin Time 14.0 12.0 - 15.0 sec [facility] [...] 1.1 [facility] Blood specimen (specimen) 11/21/2016 8:32 PM EDT 11/21/2016 8:37 PM EDT Narrative Resulting Agency Comment Spec In Lab Drew Pepe MD HEMATOLOGY ORDERABLE S [facility] [place] [address] * Hepatic Function Panel (11/21/2016 8:32 PM EDT) Pathologist [facility] Protein, Total 6.8 6.1 - 8.0 gm/dL [facility] Albumin 4.0 3.2 - 5.2 gm/dL [facility] Aspartate Aminotransferase 15 0 - 39 unit/L [facility] Alanine Aminotransferase 9 0 - 55 unit/L [facility] Alkaline Phosphatase 43 40 - 120 unit/L [facility] Bilirubin, Total 0.2 0.2 - 1.3 mg/dL [facility] Bilirubin, Direct <0.1 0.0 - 0.3 mg/dL [facility] Blood specimen (specimen) 11/21/2016 8:32 PM EDT 11/21/2016 8:37 PM EDT Narrative Resulting Agency Comment Spec In Lab Drew Pepe MD CHEMISTRY ORDERABLES [facility] [place] [address] * (ABNORMAL) Basic Metabolic Panel (non-fasting) (11/21/2016 8:32 PM EDT) Glucose 84 65 - 199 mg/dL [facility] Comment:Diabetes: >=200 mg/d L plus symptoms Blood Urea Nitrogen 10 10 - 20 mg/dL [facility] Creatinine 0.95 0.80 - 1.50 mg/dL [facility] Comment: Please note that the pediatric reference intervals supplied above were not validated at [facility]. Results from pediatric patients should be interpreted in conjunction to the patient's age, height and muscle mass. Sodium 145 135 - 145 mmol/L [facility] Potassium 3.5 3.5 - 5.0 mmol/L [facility] Comment: Please note: ??Patients with WBC >100,000 may have falsely elevated Potassium levels. ??For accurate Potassium quantification in these patients send serum separator tube (gold top) for subsequent determinations. ??Contact the Clinical Chemistry Laboratory if there are any questions. Chloride 105 98 - 107 mmol/L [facility] Carbon Dioxide 19(L) 22 - 31 mmol/L [facility] Anion Gap 21(H) 5 - 15 mmol/L [facility] [...] the following links into your internet browser. [email or web address] Blood specimen (specimen) 11/21/2016 8:32 PM EDT 11/21/2016 8:37 PM EDT Narrative Resulting Agency Comment Spec In Lab Drew Pepe MD CHEMISTRY ORDERABLES [facility] [place] [address] * pro-Brain Natriuretic Peptide (11/21/2016 8:32 PM EDT) NT-proBNP 65 <=125 pg/mL [facility] Blood specimen (specimen) 11/21/2016 8:32 PM EDT 11/21/2016 8:37 PM EDT Narrative Resulting Agency Comment Spec In Lab Drew Pepe MD CHEMISTRY ORDERABLES [facility] [place] [address] * POCT Glucose (11/21/2016 8:12 PM EDT) Glucose, POC 80 65 - 199 mg/dL [facility] Comment: Supplemental ranges: <140 mg/dL before meals <180 mg/dL all other times of the day Blood specimen (specimen) 11/21/2016 8:12 PM EDT 11/21/2016 8:12 PM EDT Valentín Oreilly MD POINT OF CARE TEST ORDERABLES [facility] [place] [address] documented in this encounter Visit Diagnoses Not [...] 0814 (Given - Provider: Esha Chen RN)1811 ([facility] Hold - Provider: Admin Adt [...] 0815 (Given - Provider: Esha Chen RN)1811 ([facility] Hold - Provider: Admin Adt - Reason: Transfer to a Procedural area)1940 ([facility] Unhold - Provider: Admin Adt) 0858 (Given - Provider: Venancio Bourgeois RN) losartan (COZAAR) tablet 12.5 mg 12.5 mg, Oral, DAILY, First dose on 11/22/16 at 0900, Until Discontinued, Routine 0807 (Given - Provider: Esha Chen RN) 0816 (Given - Provider: Esha Chen RN)1811 ([facility] Hold - Provider: Admin Adt - Reason: Transfer to a Procedural area)1940 ([facility] Unhold - Provider: Admin Adt) [...] 0816 (Given - Provider: Esha Chen RN)1811 ([facility] Hold - Provider: Admin Adt - Reason: Transfer to a Procedural area)1940 ([facility] Unhold - Provider: Admin Adt)2107 (Given - Provider: Venice Huffman RN) 09 (Given - Provider: Venancio Bourgeois RN) pantoprazole (PROTONIX) tablet 40 mg 40 mg, Oral, DAILY, First dose on 11/22/16 at 0900, Until Discontinued, DO NOT CRUSH OR OPEN, Routine 0808 (Given - Provider: Esha Chen RN) 0816 (Given - Provider: Esha Chen RN)1811 ([facility] Hold - Provider: Admin Adt - Reason: Transfer to a Procedural area)1940 ([facility] Unhold - Provider: Admin Adt) 900 (Given - Provider: Venancio Bourgeois, RN) pramipexole (MIRAPEX) tablet 0.5 mg 0.5 mg, Oral, NIGHTLY, First dose on 11/22/16 at 0030, Until Discontinued, Routine 2058 (Given - Provider: Christy Medina, VERO) 1811 ([facility] Hold - Provider: Admin Adt - Reason: Transfer to a Procedural area)1940 ([facility] Unhold - Provider: Admin Adt)2107 [...] 08 (Given - Provider: Esha Chen RN)1811 ([facility] Hold - Provider: Admin Adt - Reason: Transfer to a Procedural area)1940 ([facility] Unhold - Provider: Admin Adt)2107 [...] See comment - Comment: IV flds infusing)1811 ([facility] Hold - Provider: Admin Adt - Reason: Transfer to a Procedural area)1940 ([facility] Unhold - Provider: Admin Adt)2111 [...] Esha Chen RN)1706 (Stopped - Provider: Esha Chne RN) sodium chloride 0.9% infusion () 100 [...] (Given - Provider: Esha Chen RN) 1811 ([facility] Hold - Provider: Admin Adt - Reason: Transfer to a Procedural area)1940 ([facility] Unhold - Provider: Admin Adt) [...] for discomfort with PIV insertion, Routine 1811 ([facility] Hold - Provider: Admin Adt - Reason: Transfer to a Procedural area)1940 ([facility] Unhold - Provider: Admin Adt) [...] last 24 to 72 hours., Routine 1811 ([facility] Hold - Provider: Admin Adt - Reason: Transfer to a Procedural area)1940 ([facility] Unhold - Provider: Admin Adt) [...] (Given - Provider: Esha Chen RN) 1811 ([facility] Hold - Provider: Admin Adt - Reason: Transfer to a Procedural area)1940 ([facility] Unhold - Provider: Admin Adt) sodium chloride 0.9 % flush 5-20 mL 5-20 mL, Intravenous, EVERY 1 MIN PRN, Starting on 11/22/16 at 0013, Until Tu11/25/16 at 1305, flush, Flush pertains to all indwelling lines. Flush per protocol found in the job aid using the link provided on this medication record., Routine 1811 ([facility] Hold - Provider: Admin Adt - Reason: Transfer to a Procedural area)1940 ([facility] Unhold - Provider: Admin Adt) sodium chloride 0.9 % flush 5-20 mL 5-20 mL, Intravenous, EVERY 1 MIN PRN, Starting on Thu11/21/16 at 2010, Until Tu11/25/16 at 1305, flush, Flush pertains to all indwelling lines. Flush per protocol found in the job aid using the link provided on this medication record., Routine 1811 ([facility] Hold - Provider: Admin Adt - Reason: Transfer to a Procedural area)1940 ([facility] Unhold - Provider: Admin Adt) [...] Routine documented in this encounter Care Teams Craft Recruiter Relationship Specialty Start Date End Date Coni Lim MD [address] [place] [address] PCP - General 07/16/10 documented as of this encounter
--- OUTSIDE RECORDS SUMMARY | 2024-04-30 18:22 | XMS_ITS | Encounter Summary ---
Author Organization [facility] [place] [address] Care Team Providers Care Store Stock Associate Name Role Phone Coni Lim MD Primary Care Provider [phone] Encounter Details Date Type Department Care Team (Late st Contact Info) Description 07/26/2013 Telephone Cardiology at [address] [phone] Shanell Julian CMA Social History Tobacco Use [...] on filedocumented in this encounter Care Teams Store Stock Associate Relationship Specialty Start Date End Date Coni Lim MD [address] [place] [address] PCP - General 07/16/10 documented as of this encounter
--- OUTSIDE RECORDS SUMMARY | 2024-04-30 18:23 | XMS_ITS | Encounter Summary ---
Author Organization [facility] Address [address] [place] [address] Care Team Providers Care Grapple Yarder Operator Name Role Phone Coni Lim MD Primary Care Provider [phone] Encounter Details Date Type Department Care Team [...] on filedocumented in this encounter Care Teams Grapple Yarder Operator Relationship Specialty Start Date End Date Coni Lim MD [address] [place] [id number] PCP - General 12/17/11 documented as of this encounter
--- OUTSIDE RECORDS SUMMARY | 2024-04-30 18:23 | XMS_ITS | Encounter Summary ---
[facility] Address [facility] [place] [address] Care Team Providers Care Strip Cutter Name Role Phone Coni Lim MD Primary Care Provider [phone] Encounter Details Date Type Department Care Team (Late st Contact Info) Description 06/14/2012 [place] [address] Benjie Castellon MD [facility] [place] [address] Social History Tobacco Use Types Packs/Day Years [...] on filedocumented in this encounter Care Teams Strip Cutter Relationship Specialty Start Date End Date Coni Lim MD [address] [place] [address] PCP - General 07/16/10 documented as of this encounter
--- OUTSIDE RECORDS SUMMARY | 2024-04-30 18:23 | XMS_ITS | Encounter Summary ---
Author Organization [facility] Address [facility] [place] [address] Care Team Providers Care Drawer Fitter Name Role Phone Sarita Lim MD Primary Care Provider Encounter Details Date Type Department Care Team (Latest Contact Info) Description 06/14/2012 1:39 PM EDT - 06/15/2012 6:03 PM EDT Hospital Encounter Intermediate [place] [id number] Bryan Iverson MD [facility] [place] [address] Chest pain; GERD (gastroesophageal reflux disease); HTN [...] appointments: During 8am-5pm Thursday through Thursday call [phone] to speak with a nurse in the cardiology clinic All other times call [phone] and ask to speak to the ironing worker tax economist. Return to work: As tolerated Driving: As tolerated Follow up Appointments: PCP SARITA LIM MD June 22, 2012 at 11:[address] Leyva June 17, 2012 at 9:40 am Home oxygen therapy: N/A Arrangements for VNA/home care: none Pain clinic phone number for referral [phone] * Attachments The following attachments cannot be sent through Care Everywhere. * CHEST PAIN (ANGINA): AFTER YOUR VISIT (MACEDONIAN) documented in this encounter Medications at Time [...] Progress Note Patient Name: Romeo Coe Service: GARAGE SUPERVISOR / PA Responsible Attending: Dr. Iverson Reason for continued hospitalization: Evaluation and management of chest pain, myocardial infarction excluded by enzymes Active Problems: Active Hospital Problems Diagnoses ??? Chest pain ??? Dyslipidemia ??? GERD (gastroesophageal reflux disease) ??? HTN (hypertension) ??? DM (diabetes mellitus) ??? Smoker ??? CAD (coronary artery disease), non-obstructive - [facility] 2009 post abnormal nuc stress [...] ??? DISCONTD: sodium chloride 0.9% Stopped (06/15/12 8490) ??? DISCONTD: heparin 1,650 Units/hr (06/15/12 0315) [...] abnormality. ECG without change. Ruled out for MA despite having over 6 hours of pain. Chest pain responsive to nitrates and to morphine yesterday. Pain free this morning. This afternoon, chest pain lying in bed 5/10. ECG unchanged. Responsive to nitroglycerin. Barium swallow cancelled due to barium shortage. Will schedule as an outpatient. Reviewed possibilities of chest pain. Ruled out for PE with negative D dimer yesterday at [facility]. No effusion on echo. CXR negative for widened mediastinum. Hepatic labs normal. No gallbladder. Ruled out for MA and no cardiac enzymes or objective evidence of ischemia seen. Patient has history of fibromyalgia managed by cymbalta. Will increase nitrate dosing and consult pain service. Plan: Chest pain Non cardiac, ruled out for MA, echo showed no WMA ? Esophageal spasm [...] ??? CAD (coronary artery disease), non-obstructive - [facility] 2009 post abnormal nuc stress [...] son's biological father. He wastransported to the [facility] ED where he was evaluated and released. [...] rehab and he was transferred to the [facility] ED where 3 moresl nitroglycerin tablets were given. He didn't have any relief with these nitroglycerin tablets. In the [facility] ED his ECG showed no change, negative d dimer and troponin. He was given IV lopressor which dropped his HR from 115 to 90, IV zofran 4 mg and IV ativan 0.[address] was done which is reported as negative. He was transferred to [facility] for further management. He arrives to [facility] with 6/10 chest pain and jaw [...] of Onset ??? Heart Attack Father 46 MA, CABG ??? Diabetes Mother ??? Hypertension Mother [...] son (age 18 months), daughter 11 in [place], [place]. Takes care of his mother who has dementia and he takes her to dialysis. is disabled. Has grown daughter who is 29 years old. 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 REVIEW OF SYSTEMS: Review of Systems Constitutional: [...] ECG change or elevated troponin found at [facility]. Chest pain has remained for 6 hours without relief, will check [facility] cardiac enzymes. ECG at [facility] unchanged fromECG at discharge 10 days ago. Will get echo with pain now to evaluate for wall motion abnormality. Will place on heparin gtt TREATMENT PLAN: Chest pain Will get echo with pain Start heparin gtt Cycle cardiac enzymes, 1st set at [facility] negative Non nitrate responsive CAD On aspirin, [...] Iverson Provider: SUSHMA WILCOX APRN Provider #: [id number] STAFF ADDENDUM Patient interviewed and examined. Medical [...] 06/16/2012 11:28 AM EDTAssociated Order(s): SCAN DOC: FURNACE LINER documented in this encounter Miscellaneous Notes * [...] questions, * Discharge Summary - Sushma Wilcox, SHOE REPAIRER APPRENTICE - 06/15/2012 9:53 AM EDT Images from [...] ??? CAD (coronary artery disease), non-obstructive - [facility] 2009 post abnormal nuc stress [...] son's biological father. He wastransported to the [facility] ED where he was evaluated and released. [...] rehab and he was transferred to the [facility] ED where [address] more [address] nitroglycerin tablets were given. He didn't have any relief with these nitroglycerin tablets. In the [facility] ED his ECG showed no change, negative d dimer and troponin. He was given IV lopressor which dropped his HR from 115 to 90, IV zofran 4 mg and IV ativan 0.[address] was done which is reported as negative. He was transferred to [facility] for further management. He arrives to [facility] with 6/10 chest pain and jaw pain. He appears to be resting comfortably in bed. Hospital Course: Chest Pain, non cardiac The patient had ongoing pain on arrival to [facility], rated 5/10. Echo done at the time showed no wall motion abnormality and an EF of 65%. He had negative cardiac enzymes x 3 sets and heparin was stopped. Chest pain resolved with morphine. Overnight he had another episode of chest pain which was nitrate responsive. Chest pain from the following causes was excluded: Cardiac, pulmonary with normal d dimer at [facility] and CXR with only smoker's changes, no [...] meds needed now, [facility] Patient switched to plavix due [...] appointments: During 8am-5pm Thursday through Thursday call [phone] to speak with a nurse in the cardiology clinic All other times call [phone] and ask to speak to the ironing worker tax economist. Return to work: As tolerated Driving: As tolerated Follow up Appointments: PCP SARITA LIM MD June 22, 2012 at 11:[address] Leyva June 17, 2012 at 9:40 am Home oxygen therapy: N/A Arrangements for VNA/home care: none Pain clinic phone number for referral [phone] Provider Contact Information: SUSHMA WILCOX, SHOE REPAIRER APPRENTICE [phone] Discharge References/Attachments: Discharge References/Attachments None Signed: Sushma Wilcox, SHOE REPAIRER APPRENTICE 06/15/2012 * Miscellaneous - Provider, Scanning - 06/14/2012 9:38 PM EDT documented in this encounter Plan of Treatment Not on file documented as of this encounter Procedures Procedure Name Priority Date/Time Associated Diagnosis Comments FURNACE LINER SCAN 06/16/2012 11:28 AM EDT POCT GLUCOSE [...] 10:40 PM EDT Chest pain CARDIAC ENZYMES ([facility]) STAT 06/14/2012 8:55 PM EDT APTT STAT 06/14/2012 8:55 PM EDT XR CHEST PA AND LATERAL Routine 06/14/20 12 8:45 PM EDT POCT GLUCOSE Routine 06/14/2012 8:11 PM EDT POCT GLUCOSE Routine 06/14/2012 4:57 PM EDT ECHOCARDIOGRAM TRANSTHORACIC STAT 06/14/2012 4:00 PM EDT Chest pain BMP W/FASTING GLUCOSE STAT 06/14/2012 2:38 PM EDT DIFFERENTIAL, AUTOMATED STAT 06/14/20 12 2:38 PM EDT CARDIAC ENZYMES ([facility]) STAT 06/14/2012 2:38 PM EDT APTT STAT 06/14/2012 2:38 PM EDT PROTHROMBIN TIME STAT 06/14/2012 2:38 PM EDT CBC (WITH DIFF) STAT 06/14/2012 2:38 PM EDT EKG 12-LEAD STAT 06/14/2012 2:27 PM EDT Chest pain documented in this encounter Results * SCAN DOC: FURNACE LINER (06/16/2012 11:28 AM EDT) Anatomical Region Laterality Modality Other Narrative 06/16/2012 1:12 PM EDT Procedure Note Provider, Scanning - 06/16/2012 11:28 AM EDT Scanning Provider MEDIA MGR SCAN EXT O RDR/RSLT * POCT GLUCOSE (06/15/2012 5:48 PM EDT) Glucose, POC 138 60 - 199 mg/dL [facility] Comment: Supplemental ranges: <110 mg/dL before meals <200 mg/dL all other times of the day Blood specimen (specimen) 06/15/2012 5:48 PM EDT 06/15/2012 5:48 PM EDT Bryan Iverson MD POINT OF CARE TEST O RDERABLES Performing Organization Address [facility] Co de Phone Number [facility] * EKG 12 Lead (06/15/2012 12:40 PM EDT) Ventricular rate 91 BPM MUSE SYSTEM Atrial Rate 91 BPM MUSE SYSTEM P-R Interval 138 ms MUSE SYSTEM QRS Duration 82 ms MUSE SYSTEM Q-T Interval 328 ms MUSE SYSTEM QTC Calculated (Bezet) 403 ms MUSE SYSTEM Calculated P [place] 27 degrees MUSE SYSTEM Calculated R [place] 31 degrees MUSE SYSTEM Calculated T [place] 41 degrees MUSE SYSTEM INTERPRETATION Normal sinus rhythm Normal ECG When compared with ECG of 15-JUN-2012 07:17, No significant change was found Confirmed by MD Walton Douglas ([id number]) on 06/15/2012 2:25:30 PM MUSE SYSTEM 06/15/2012 12:4 0 PM EDT 06/15/2012 2:25 PM EDT Bryan Iverson MD ECG ORDERABLES Performing Organization Address City/[facility]/ZIP Co de Phone Number MUSE SYSTEM * POCT GLUCOSE (06/15/2012 12:00 PM EDT) Glucose, POC 164 60 - 199 mg/dL [facility] Comment: Supplemental ranges: <110 mg/dL before meals <200 mg/dL all other times of the day Blood specimen (specimen) 06/15/2012 12:00 PM EDT 06/15/2012 12:00 PM EDT Bryan Iverson MD POINT OF CARE TEST O RDERAAIRAM Performing Organization Address [facility] de Phone Number [facility] * POCT GLUCOSE (06/15/2012 7:51 AM EDT) Pathologist [facility] Glucose, POC 166 60 - 199 mg/dL [facility] Comment: Supplemental ranges: <110 mg/dL before meals <200 mg/dL all other times of the day Blood specimen (specimen) 06/15/2012 7:51 AM EDT 06/15/2012 7:51 AM EDT Bryan Iverson MD POINT OF CARE TEST O RDERAAIRAM Performing Organization Address [facility] de Phone Number [facility] * (ABNORMAL) APTT (06/15/2012 7:35 AM EDT) Partial Thromboplastin Time 130(H) 25 - 35 sec [facility] Comment: Recommended therapeutic PTT range for full dose unfractionated heparin is 80-114 seconds. Blood specimen (specimen) 06/15/2012 7:35 AM EDT 06/15/2012 7:49 AM EDT Narrative Resulting Agency Comment Spec In Lab Bryan Iverson MD HEMATOLOGY ORDERABLE S Performing Organization Address [facility] Phone Number [facility] * EKG 12 Lead (06/15/2012 7:17 AM EDT) Ventricular rate 69 BPM MUSE SYSTEM Atrial Rate 69 BPM MUSE SYSTEM P-R Interval 148 ms MUSE SYSTEM QRS Duration 94 ms MUSE SYSTEM Q-T Interval 374 ms MUSE SYSTEM QTC Calculated (Bezet) 400 ms MUSE SYSTEM Calculated P [place] 20 degrees MUSE SYSTEM Calculated R [place] 35 degrees MUSE SYSTEM Calculated T [place] 36 degrees MUSE SYSTEM INTERPRETATION Normal sinus rhythm Normal ECG When compared with ECG of 14-JUN-2012 22:40, (unconfirmed) No significant change was found Confirmed by MD Walton Douglas ([id number]) on 06/15/2012 9:36:33 AM MUSE SYSTEM 06/15/2012 7:17 AM EDT 06/15/2012 9:36 AM EDT Bryan Iverson MD ECG ORDERABLES Performing Organization Address [facility]/ZIP Co de Phone Number MUSE SYSTEM * CARDIAC ENZYMES (06/15/2012 2:08 AM EDT) Troponin-T <0.03 <=0.03 ng/mL [facility] Comment: 0.03 ng/mL: Represents the 99th percentile upper reference limit for normals. >0.03 ng/mL: Elevated cardiac troponin T level indicative of myocardial damage. Diagnosis of acute, evolving or recent MA requires a typical rise and gradual fall [...] Creatine Kinase 52 0 - 200 unit/L [facility] Blood specimen (specimen) 06/15/2012 2:08 AM EDT 06/15/2012 2:28 AM EDT Narrative Resulting Agency Comment Spec In Lab Bryan Iverson MD CHEMISTRY ORDERABLES Performing Organization Address [facility]/ZIP Co de Phone Number [facility] [employer] * (ABNORMAL) BMP w/fasting Glucose (06/15/2012 2:08 AM EDT) Glucose Fasting 125(H) 65 - 99 mg/dL [facility] Comment: ?Fasting* Glucose Interpretive Criteria Normal ?65-99 [...] intervals supplied above were not validated at [facility]. Results from pediatric patients should be interpreted [...] Iverson MD CHEMISTRY ORDERABLES Performing Organization Address [facility] Co de Phone Number [employer] * (ABNORMAL) APTT (06/15/2012 2:08 AM EDT) [facility] Signature Partial Thromboplastin Time 76(H) 25 - 35 sec TANG [employer]atter[facility] NetworksCHANEL Comment: Recommended therapeutic PTT range for full dose unfractionated heparin is 80-114 seconds. Blood specimen (specimen) 06/15/2012 2:08 AM EDT 06/15/2012 2:28 AM EDT Narrative Resulting Agency Comment Spec In Lab Bryan Iverson MD HEMATOLOGY ORDERABLE S Performing Organization Address [facility] Co de Phone Number CERNER MILLENNIUM * [...] Iverson MD CHEMISTRY ORDERABLES Performing Organization Address City/[facility] Co de Phone Number TANG CLEMENSIUM * TSH (06/15/2012 2:08 AM EDT) Thyroid Stimulating Hormone 1.62 0.27 - 4.20 mcIU/mL CERNER MILLENNIUM Blood specimen (specimen) 06/15/2012 2:08 AM EDT 06/15/2012 2:28 AM EDT Narrative Resulting Agency Comment Spec In Lab Bryan Iverson MD CHEMISTRY ORDERABLES Performing Organization Address City/[facility] Co de Phone Number CERANNABEL JENSENENNIUM * [...] MD HEMATOLOGY ORDERABLE S Performing Organization Address [facility] de Phone Number [facility] * EKG 12 Lead (06/14/2012 10:40 PM EDT) Pathologist [facility] Ventricular rate 87 BPM MUSE SYSTEM Atrial Rate 87 BPM MUSE SYSTEM P-R Interval 152 ms MUSE SYSTEM QRS Duration 90 ms MUSE SYSTEM Q-T Interval 356 ms MUSE SYSTEM QTC Calculated (Bezet) 428 ms MUSE SYSTEM Calculated P [place] 33 degrees MUSE SYSTEM Calculated R [place] 27 degrees MUSE SYSTEM Calculated T [place] 37 degrees MUSE SYSTEM INTERPRETATION Normal sinus rhythm Normal ECG When compared with ECG of 14-JUN-2012 14:27, No significant change was found Confirmed by MD Anton, Asif ([id number]) on 06/15/2012 9:29:03 AM MUSE SYSTEM 06/14/2012 10:4 0 PM EDT 06/15/2012 9:29 AM EDT Bryan Iverson MD ECG ORDERABLES Performing Organization Address [facility] de Phone Number MUSE SYSTEM * Cardiac Enzymes (06/14/2012 8:55 PM EDT) Pathologist [facility] Troponin-T <0.03 <=0.03 ng/mL [facility] Comment: 0.03 ng/mL: Represents the 99th percentile upper reference limit for normals. >0.03 ng/mL: Elevated cardiac troponin T level indicative of myocardial damage. Diagnosis of acute, evolving or recent MA requires a typical rise and gradual fall [...] Kinase 53 0 - 200 unit/L CERANNABEL [employer] Blood specimen (specimen) 06/14/2012 8:55 PM EDT 06/14/2012 9:40 PM EDT Narrative Resulting Agency Comment Spec In Lab Bryan Iverson MD CHEMISTRY ORDERABLES Performing Organization Address City/[facility]/ZIP Co de Phone Number TANG [employer] * APTT (06/14/2012 8:55 PM EDT) Partial Thromboplastin Time 33 25 - 35 sec CERANNABEL [employer] Comment: Recommended therapeutic PTT range for full dose unfractionated heparin is 80-114 seconds. Blood specimen (specimen) 06/14/2012 8:55 PM EDT 06/14/2012 9:40 PM EDT Narrative Resulting Agency Comment Spec In Lab Bryan Iverson MD HEMATOLOGY ORDERABLE S Performing Organization Address City/[facility]/ZIP Co de Phone Number TANG [employer] * XR chest routine PA & lateral (06/14/2012 8:45 PM EDT) Anatomical Region Laterality Modality Chest N/A Radiographic Shelly ging 06/14/2012 8:45 PM EDT Narrative 06/15/2012 9:18 AM EDT Examination CHEST ROUTINE 2 VIEWS Clinical History chest pain, + smoker, recent coronary stents Comparison Is made with the study of 06/14 058248 hours. Technique Findings Cardiomediastinal silhouette is normal. [...] Is made with the study of 06/14 220668 hours. Technique Findings Cardiomediastinal silhouette is normal. [...] Glucose, POC 207(H) 60 - 199 mg/dL [facility] [employer] Comment: Supplemental ranges: <110 mg/dL before meals <200 mg/dL all other times of the day Blood specimen (specimen) 06/14/2012 8:11 PM EDT 06/14/2012 8:11 PM EDT Bryan Iverson MD POINT OF CARE TEST O EVITA Performing Organization Address [facility] Co de Phone Number [facility] [employer] * POCT GLUCOSE (06/14/2012 4:57 PM EDT) Glucose, POC 119 60 - 199 mg/dL [facility] Comment: Supplemental ranges: <110 mg/dL before meals <200 mg/dL all other times of the day Blood specimen (specimen) 06/14/2012 4:57 PM EDT 06/14/2012 4:57 PM EDT Bryan Iverson MD POINT OF CARE TEST O EVITA [facility] [employer] * Echo Transthoracic (Complete) (06/14/2012 4:00 PM EDT) EF 65 [facility] SYSTEM Anatomical Region Laterality Modality Other 06/14/2012 Narrative 06/14/2012 4:26 PM EDT Amended Report Procedure: ? Transthoracic Echocardiogram Patient: ? LAQUITA Pop ?(Age): 1965(47) Med Rec#: ?[id number] ? Sex: ?M ? Site Loc: ?[facility] ? Ht / Wt: ??176(cm)/114(kg) Pt. Loc: ? Adult Floor ?BSA: ?2.36 Study Date: ?06/14/2012 ? Pt. Type: Inpatient Tape: ? Referring: Bryan Iverson ([id number]) Referring: STEPHANIE WILLIAM I Electrical Intern: Juan Haley [facility] Diagnosis: ??Chest pain (786.50) CPT Code(s): ??Echo LTD (58618), ??Definity (61070AO), Indication(s): ??Chest Pain Rhythm: SUMMARY: 1. Technically [...] ? Mid-Inferior ?Normal ? Mid-Inferoseptal ?Normal ? Howe-Septal ? Normal ? Howe-Anterior ? Normal ? Howe-Lateral ?Normal ? Howe-Inferior ? Normal ? Howe-Tip ?Normal ? Chambers ?Value ?Units (Range) ? [...] 06/14/2012 16:26:31 Images reviewed and interpretation verified [facility] Procedure Note Cali Shannon MD - 06/14/2012 Amended Report Procedure: Transthoracic Echocardiogram Patient: LAQUITA Pop DOB(Age): 1965(47) Med Rec#: [id number] Sex: M Site Loc: [facility] Ht / Wt: 176(cm)/114(kg) Pt. Loc: Adult Floor BSA: 2.36 Study Date: 06/14/2012 Pt. Type: Inpatient Tape: Referring: Bryan IversonNatalie ([id number]) Referring: STEPHANIE WILLIAM I Electrical Intern: Juan Haley [facility] Diagnosis: Chest pain (786.50) CPT Code(s): Echo LTD (21674), Definity (30832FP), Indication(s): Chest Pain Rhythm: SUMMARY: 1. Technically [...] Normal Mid-Posterolateral Normal Mid-Inferior Normal Mid-Inferoseptal Normal Howe-Septal Normal Howe-Anterior Normal Howe-Lateral Normal Howe-Inferior Normal Howe-Tip Normal Chambers Value Units (Range) LV EF Est 65 % (55 to 80) IVSd 2D 0.9 cm LVIDd 2D 4.6 cm PWd 2D 1 cm LVIDs 2D 3.1 cm LVFS 2D 32 % This report has been electronically signed by: Cali Shannon MD 06/14/2012 16:26:31 Images reviewed and interpretation verified [facility] Bryan Iverson MD ECHO [...] Cardiac Enzymes (06/14/2012 2:38 PM EDT) Pathologist [facility] Troponin-T <0.03 <=0.03 ng/mL [facility] [employer] Comment: 0.03 ng/mL: Represents the 99th percentile upper reference limit for normals. >0.03 ng/mL: Elevated cardiac troponin T level indicative of myocardial damage. Diagnosis of acute, evolving or recent MA requires a typical rise and gradual fall [...] Kinase 48 0 - 200 unit/L [facility] [employer] Blood specimen (specimen) 06/14/2012 2:38 PM EDT 06/14/2012 3:04 PM EDT Narrative Resulting Agency Comment Spec In Lab Bryan Iverson MD CHEMISTRY ORDERABLES Performing Organization Address [facility] Phone Number [facility]ANG [place] * APTT (06/14/2012 2:38 PM EDT) Pathologist [facility] Partial Thromboplastin Time 26 25 - 35 sec [facility]ANNABEL JENSENxoompark Comment: Recommended therapeutic PTT range for full dose unfractionated heparin is 80-114 seconds. Blood specimen (specimen) 06/14/2012 2:38 PM EDT 06/14/2012 3:04 PM EDT Narrative Resulting Agency Comment Spec In Lab Bryan Iverson MD HEMATOLOGY ORDERABLE S Performing Organization Address [facility] Co de Phone Number [facility] [place] * Prothrombin Time (06/14/2012 2:38 PM EDT) Prothrombin Time 13.3 11.9 - 14.7 sec CERNER MILLENNIUM Comment: [facility] Transfusion Committee Guidelines: INR less than 2.0, [...] BMP w/fasting Glucose (06/14/2012 2:38 PM EDT) [facility] Signature Glucose Fasting 117(H) 65 - 99 [...] intervals supplied above were not validated at [facility]. Results from pediatric patients should be interpreted [...] Lab Bryan Iverson MD CHEMISTRY ORDERABLES [facility] * EKG 12 Lead (06/14/2012 2:27 PM EDT) Ventricular rate 91 BPM MUSE SYSTEM Atrial Rate 91 BPM MUSE SYSTEM P-R Interval 134 ms MUSE SYSTEM QRS Duration 84 ms MUSE SYSTEM Q-T Interval 348 ms MUSE SYSTEM QTC Calculated (Bezet) 428 ms MUSE SYSTEM Calculated P [place] 6 degrees MUSE SYSTEM Calculated R [place] 29 degrees MUSE SYSTEM Calculated T [place] 25 degrees MUSE SYSTEM INTERPRETATION Normal sinus [...] Coronary atherosclerosis of unspecified type of vessel, [place] or graft Smoker Tobacco use disorder Dyslipidemia [...] than 145 sec X 2 - call tank house operator See Bolus dosing guidance for aPTT values [...] Discontinued, Routine 2113 (Given - Provider: Brooke Rodriguze RN) 927 (Given - Provider: Reid Batista [...] Karishma Malagon RN)0512 (Given - Provider: Karishma Maalgon RN)1200 (Given - Provider: Reid Batista, VERO)1738 [...] than 145 sec X 2 - call tank house operator See Bolus dosing guidance for aPTT values [...] Karishma Malagon RN - Comment: per MD tax economist, hold for now) PRN Medication Order 06/13/2012 [...] Brooke Rodriguez RN) 1239 (Given - Provider: eRid Batista RN)1247 (Given - Provider: Reid Batista RN)1252 (Given - Provider: Reid Batista RN) perflutren lipid microspheres (DEFINITY) injection 0.9 mL (COMPLETED) 0.9 mL, Intravenous, IMG ONCE PRN, 1 dose, Starting on Thu06/14/12 at 1601, Until 10/22/12 at 1545, Other, for enhancement of sub-optimal echo images, Echo Lab (Intra-Procedure), Routine 1545 (Given - Provider: Juan Haley) Linked Groups Order Group 1: clopidogrel (PLAVIX) tablet 300 mg (COMPLETED)Jump to med 300 mg, Oral, ONCE, 1 dose, On Thu06/14/12 at 2100, Routine Followed by clopidogrel (PLAVIX) tablet 75 mgJump to med 75 mg, Oral, DAILY, First dose on Thu06/15/12 at 0900, Until Discontinued, Routine documented in this encounter Care Teams Drawer Fitter Relationship Specialty Start Date End Date Sarita Lim MD [address] [place] [address] PCP - General 07/16/10 documented as of this encounter
--- OUTSIDE RECORDS SUMMARY | 2024-04-30 18:23 | XMS_ITS | Encounter Summary ---
Author Organization [facility] Address [address] [place] [address] Care Team Providers Care Vice President Of Human Resources Name Role Phone Coni Lim MD Primary Care Provider [phone] Reason for Visit * (Routine/Next Available) - Receiving Office to Obtain Authorization Specialty Diagnoses / Procedures Referred By Contac t Referred To Contact Procedures CT OUTSIDE IMAGES HEAD AND NECK Unknown, Provider, Referral ID Status Reason Start Date Expiration Date Visits Requested Visits Authorized [id number] Receiving Office to Obtain Authorization 04/07/2023 1 1 Encounter Details Date Type Department Care Team (Latest Contact Info) Description 04/07/2023 20:14 EDT - 04/07/2023 23:44 EDT Hospital Encounter [facility] Secondary Reads [place] Discharge Disposition: [...] on filedocumented in this encounter Care Teams Vice President Of Human Resources Relationship Specialty Start Date End Date Coni Lim MD [address] [place] [id number] PCP - General 12/17/11 documented as of this encounter
--- OUTSIDE RECORDS SUMMARY | 2024-04-30 18:23 | XMS_ITS | Encounter Summary ---
[place] [address] Care Team Providers Care Educational Director Name Role Phone Coni Lim MD Primary Care Provider [phone] Encounter Details Date Type Department Care Team (Late st Contact Info) Description 05/28/2012 Telephone Cardiology at [address] [id number] Savanah Duncan LPN Social History Tobacco Use [...] 30 days)____work up to be done in [facility] 05/28/12 Date of EKG: work up on 05/28/12 in [facility] Medications:verified. Stop Metformin 48 hour prior [...] ekg dates. Information not yet available from [facility]. documented in this encounter Plan of Treatment Not on file documented as of this encounter Visit Diagnoses Not on filedocumented in this encounter Care Teams Educational Director Relationship Specialty Start Date End Date Coni Lim MD [address] [place] [address] PCP - General 07/16/10 documented as of this encounter
--- OUTSIDE RECORDS SUMMARY | 2024-04-30 18:23 | XMS_ITS | Encounter Summary ---
Author Organization [facility] Address [address] [place] [address] Care Team Providers Care Budget And Policy Analyst Name Role Phone Coni Lmi MD Primary Care Provider [phone] Reason for Visit * (Routine/Next Available) - Receiving Office to Obtain Authorization Specialty Diagnoses / Procedures Referred By Contsigifredo t Referred To Contact Procedures CT OUTSIDE IMAGES CHEST ABDOMEN PELVIS Unknown, Provider, Referral ID Status Reason Start Date Expiration Date Visits Requested Visits Authorized [id number] Receiving Office to Obtain Authorization 04/07/2023 1 1 Encounter Details Date Type Department Care Team (Latest Contact Info) Description 04/07/2023 20:11 EDT - 04/07/2023 20:13 EDT Hospital Encounter [facility] Secondary Reads [place] Discharge Disposition: Home [...] on filedocumented in this encounter Care Teams Budget And Policy Analyst Relationship Specialty Start Date End Date Coni Lim MD [address] [place] [id number] PCP - General 12/17/11 documented as of this encounter
--- OUTSIDE RECORDS SUMMARY | 2024-04-30 18:23 | XMS_ITS | Encounter Summary ---
Author Organization [facility] Address [address] [place] [address] Care Team Providers Care Pipeline Superintendent Name Role Phone Coni Lim MD Primary Care Provider [phone] Reason for Visit * (Routine/Next Available) - Receiving Office to Obtain Authorization Specialty Diagnoses / Procedures Referred By Contac t Referred To Contact Procedures CT OUTSIDE IMAGES CERVICAL SPINE Unknown, Provider, Referral ID Status Reason Start Date Expiration Date Visits Requested Visits Authorized [id number] Receiving Office to Obtain Authorization 04/07/2023 1 1 Encounter Details Date Type Department Care Team (Latest Contact Info) Description 04/07/2023 20:11 EDT - 04/07/2023 20:13 EDT Hospital Encounter [facility] Secondary Read[place] Discharge Disposition: Home [...] on filedocumented in this encounter Care Teams Pipeline Superintendent Relationship Specialty Start Date End Date Coni Lim MD [address] [place] [id number] PCP - General 12/17/11 documented as of this encounter
--- OUTSIDE RECORDS SUMMARY | 2024-04-30 18:23 | XMS_ITS | Encounter Summary ---
Author Organization [facility] Address [address] [place] [address] Care Team Providers Care Agriculture Worker Name Role Phone Coni Lim MD Primary Care Provider [phone] Reason for Visit * Auth/Cert (Routine) Specialty Diagnoses / Procedures Referred By Contsigifredo t Referred To Contact Diagnoses Encephalopathy Seizures Referral ID Status Reason Start Date Expiration Date Visits Re quested Visits Authorized [id number] 1 1 Encounter Details Date Type Department Care Team (Late st Contact Info) Description 04/07/2023 23:45 EDT - 04/09/2023 13:45 EDT Hospital Encounter [place] [address] General Medicine Telemetry Unit [address] [place], [place] [id number] Gillian Randolph MD 111 [facility], Level [address] [place] [phone] Park Coe MD MPH [address] [phone] Acute respiratory failure with hypoxia (HCC-CMS); Cerebrovascular [...] 04/08/2023 ??? Acute respiratory failure with hypoxia ([facility]) ([facility]) 04/08/2023 ??? Idiopathic hypotension 04/08/2023 ??? Anxiety and depression 02/22/2014 ??? Unstable angina ([facility]) ([facility]) 02/15/2014 ??? CAD (coronary artery disease) 02/15/2014 ??? CVA (cerebral vascular accident) ([facility]) 03/15/2015 Resolved Hospital Problems No resolved problems to display. Transition of care: [facility] Transition of Care report automatically routed to PCP office on discharge.Additional handoff communication performed via: Fax Clinical Issues Needing Follow-up 1. Pertinent medication changes: - Continue BASS VIOL REPAIRER medications without changes 2. Recommended follow-up tests/procedures needed: - Routine follow-up with PCP 3. Anticoagulation on discharge: No Recent Labs 04/08/23 0122 INR 1.1 4. Changes to goals of care at time of discharge (if applicable): N/A Hospital Course: Romeo Coelho is a 57 y/o man with a history of CAD s/p PCI and prior CVA, who was admitted to the MICU from [facility] after being found down and unresponsive. His found him down outside after he went out to mow the lawn. At [facility] he was found to have a GCS of 3 and was intubated for airway protection. He underwent CT head and CT angio head/neck out of concern for midbrain or pontine stroke, both of which were unrevealing. He was transferred to the [facility] MICU for further management of his depressed [...] today: 35 Minutes Park Coe MD MPH [facility] Inpatient Service 04/09/2023 14:33 documented in this [...] Means Destination Comment s Home or Self Skilled Nursing documented in this encounter Progress Notes * [...] accessing necessary care and/or follow-up after discharge. launderette attendant/Clinical Program Consultant will continue to follow patient's progress and [...] (PCI), hx CVA, DM2, HLD. Presented to [facility] after being found down by . Was seen ~30min prior while mowing the lawn. In ED pt intubated for airway protection. Transfer to [facility] MICU. Was able to quickly extubated and [...] LDA for any identified wounds ??? Add [place] image for any suspected PI or non surgical wounds ??? Order wound consult if suspected PI identified ? ? If Anibal is < or = to 16, initiate Pressure Injury Prevention Bundle ([id number]). 04/08/2023 5:48 * Martha Randall RT - 04/07/2023 2350 EDT Respiratory Progress Note Indications for Respiratory therapy: Mechanical Ventilation Data Vitals: Heart Rate: 78 BPM, Resp: 16, SpO2: 97 % FIO2/O2 Device: , , O2 Device: Intubated, FIO2 %: 30 % RT Orders: Continuous RT Orders (From admission, onward) Start Ordered 04/08/23 0500 Mechanical Ventilation-Invasive [[id number]] RT Continuous Discontinue References: ARDS/ALI Protocol Post Op Protocol Weaning Protocol ETCO2 Protocol Question Answer Comment Mode: Assist Control Control Type: Volume Control VT (mL) 510 Set Rate (f/min) 16 Peep (cm H2O) 5 Autoflow: Yes Protocols: Weaning ETCO2 Protocol: Yes 04/08/23 0023 Active Orders Action/Events Respiratory events; Pt transferred from [facility], received report from Transport Team. Pt placed [...] 1 Patient was admitted from: Outside Hospital: [facility]. Count Includes [facility] Hospital Assessment The patient is a 57 [...] prior symptoms May follow with neurologist in [facility]? #History of CVA - as above [...] CVA who was [facility] after being found down and unresponsive. His found him down outside after he went out to mow the [email or web address]. At [facility] he was found to have a GCS of 3 and was intubated for airway protection. He underwent CT head and CT angio head/neck out of concern for midbrain or pontine stroke, both of which were unrevealing. He was transferred to the [facility] MICU for further management of his depressed mental status. Collateral obtained from patient's : Patient was in normal state of health. Went out to [employer] and then mow the [email or web address]. Was seen maybe30 min prior. Then she [...] No known supplements. Only recent travel to [facility]. No known possible toxic ingestions. No recent [...] sinus rhythm, rate 81, normal axis, normal SD interval, normal QTc Brandon Denny, MS4 Signed, [...] and depression Acute respiratory failure with hypoxia ([facility]) ([facility]) Idiopathic hypotension CVA (cerebral vascular accident) ([facility]) Critical Care time was provided in the [...] Care - Aiyana Almonte RN - 04/09/2023 0770 EDT Data: VSS on RA. AOX3. No [...] LDA for any identified wounds ??? Add [place] image for any suspected PI or non surgical wounds ??? Order wound consult if suspected PI identified ? ? If Anibal is < or = to 16, initiate Pressure Injury Prevention Bundle ([id number]). 04/08/2023 19:39 * Plan of Care - [...] room air. Denies pain. Transportedvia wheelchair to [place] [address] by RN. Report endorsed to Steffanie PHAM [...] Keenan Laws MD - 04/08/2023 1821 EDT [facility] Medicine Transfer Summary Service Date: 04/08/2023 Admit Date: 04/08/23 Primary Care Provider: Coni Lim Chief Complaint: Syncope HPI Romeo Coelho is a 57 y.o. male with a PMHx of CAD s/p prior PCI and prior CVA, DM2, HLD who presented as a transfer from [facility] on 04/07/2023 intubated and sedated for airway protection after being brought to [facility] via EMS for syncope. Per records, the patient's story is consistent with feeling tired and dehydrated prior to the event, his first of this kind. Eval prior to arrival at the [facility] MICU included head and neck imaging which [...] Depression ??? DMII (diabetes mellitus, type 2) ([facility]) ??? Fibromyalgia ??? Gout ??? HLD (hyperlipidemia) [...] above interpretation and agree with the findings. [id number] Assessment Romeo Coelho is a 57 y.o. [...] daily in AM Metop 50 tartrate BID (BASS VIOL REPAIRER 200mg Succ) Mood Fibromyalgia Bupropion 150mg BID Cymbalta 60mg BID Gabapentin 800mg BID Topiramate 25mg GERD BASS VIOL REPAIRER PPI Restless Leg Pramipexole BASS VIOL REPAIRER DM SSI VTE Prophylaxis Ambulate Code: Full [...] DM2, HTN, neuropathy and gout, transferred to [facility] MICU from [facility] on 04/07/23 after a syncopal event that occurred after he had mowed his lawn.Per records from [facility], he was found down by his and brought to [facility] via EMS. He was started onPropofol and [...] or cardiac symptoms. Evaluation for stroke and TX (inc troponins and TTE) was unrevealing. Of note his U tox is positive for Benzos, Fentanyl and Cannabis. He acknowledges regular marijuana use (it is prescribed to me) and reports having a niece who struggles with an opiate use disorder,but denies using drugs other than marijuana. Available records from [facility] do not reveal evidence that these drugs were administered there (or here). I shared this information with him but he again reports using marijuana only. Will monitor on tele overnight and likely DC home tomorrow. ?? Keenan Laws MD * Plan of Care - Rick Cuellar MD - 04/08/2023 1356 EDT Plan of Care Note Patient admitted overnight to MICU, intubated from [facility]. Patient briefly on pressors and propofol which [...] PGY-1 * Plan of Care - Leigha Welhs RN - 04/08/2023 0700 EDT Problem: Safety: [...] 7:42 EDT) 04/14/2023 7:42 EDT Scan 2 Hypo Splasher PROCEDURE/MINOR GUSTAVO GICAL ORDERABLES * ECG REPORT - SCANNED (04/13/2023 13:22 EDT) 04/13/2023 13:2 2 EDT Scan 2 Hypo Splasher PROCEDURE/MINOR GUSTAVO GICAL ORDERABLES * BETA HYDROXYBUTYRATE (04/09/2023 12:15 EDT) Beta Hydroxybutyrate <0.1 <0.4 mmol/L 04/09/2023 12:48 EDT [facility] Blood VENOUS BLOOD / Unknown Venipuncture / Unknown 04/09/2023 12:15 EDT 04/09/2023 12:24 EDT Keeley Quiroz PA-C CHEMISTRY & BLOOD GAS ORDERABLES [facility] [address] [place] [address] * (ABNORMAL) BASIC METABOLIC PANEL (BMP) (04/09/2023 12:15 EDT) Sodium 140 136 - 145 mmol/L 04/09/2023 12:42 EDT [facility] Potassium 3.7 3.5 - 5.0 mmol/L 04/09/2023 12:42 EDT [facility] Chloride 110 96 - 110 mmol/L 04/09/2023 12:42 EDT [facility] CO2 Total 19(L) 22 - 32 mmol/L 04/09/2023 12:42 T [facility] Anion Gap 11 5 - 14 mmol/L 04/09/2023 12:42 T [facility] Glucose 122(H) 70 - 99 mg/dl 04/09/2023 12:42 T [facility] Calcium 8.8 8.5 - 10.5 mg/dL 04/09/2023 12:42 [facility] BUN 11 10 - 26 mg/dL 04/09/2023 12:42 [facility] Creatinine 0.68 0.66 - 1.25 mg/dL 04/09/2023 12:42 [facility] eGFR 110 >60 mL/min/1.73 m2 04/09/2023 12:42 T [facility] Blood VENOUS BLOOD / Unknown Venipuncture / Unknown 04/09/2023 12:15 EDT 04/09/2023 12:24 EDT Keeley Quiroz PA-C CHEMISTRY & BLOOD GAS ORDERABLES [facility] [address] [place] [address] * LACTIC ACID (04/09/2023 12:14 EDT) Lactic Acid 0.9 <=2.0 mmol/L 04/09/2023 12:53 EDT [facility] Blood VENOUS BLOOD / Unknown Venipuncture / Unknown 04/09/2023 12:14 EDT 04/09/2023 12:25 EDT Keeley Quiroz PA-C CHEMISTRY & BLOOD GAS ORDERABLES Performing Organization Address City/[facility]/ZIP Co de Phone Number [facility] [address] [place] [address] * (ABNORMAL) BASIC METABOLIC PANEL (BMP) (04/09/2023 9:30 EDT) Sodium 140 136 - 145 mmol/L 04/09/2023 11:13 T [facility] Potassium 3.7 3.5 - 5.0 mmol/L 04/09/2023 11:13 [facility] Comment:Slight hemolysis christo ntified, interpret with caution as hemolysis will elevate potassium result. Chloride 110 96 - 110 mmol/L 04/09/2023 11:13 [facility] CO2 Total 15(L) 22 - 32 mmol/L 04/09/2023 11:13 [facility] Anion Gap 15(H) 5 - 14 mmol/L 04/09/2023 11:13 [facility] Glucose 203(H) 70 - 99 mg/dl 04/09/2023 11:13 [facility] Calcium 8.8 8.5 - 10.5 mg/dL 04/09/2023 11:13 [facility] BUN 12 10 - 26 mg/dL 04/09/2023 11:13 [facility] Comment: Slight hemolysis identified, interpret with caution as results may be affected due to hemolysis. Creatinine 0.78 0.66 - 1.25 mg/dL 04/09/2023 11:13 [facility] eGFR 105 >60 mL/min/1.7 3m2 04/09/2023 11:13 [facility] Blood VENOUS BLOOD / Unknown Venipuncture / Unknown 04/09/2023 9:30 EDT 04/09/2023 10:39 EDT Memo Odonnell MD CHEMISTRY & BLOOD GA S ORDERABLES Performing Organization Address City/[facility]/ZIP Co de Phone Number [facility] [address] [place] [address] * (ABNORMAL) COMPLETE BLOOD COUNT (04/09/2023 9:30 EDT) Pathologist [facility] WBC 8.85 4.00 - 10.40 K/cmm 04/09/2023 10:47 [facility] RBC 4.69 4.36 - 5.78 M/cmm 04/09/2023 10:47 [facility] Hemoglobin 13.9 13.8 - 17.3 g/dL 04/09/2023 10:47 [facility] HCT 40.9 39.5 - 50.2 % 04/09/2023 10:47 [facility] MCV 87 81 - 95 fL 04/09/2023 10:47 [facility] MCH 29.6 27.6 - 33.0 pg 04/09/2023 10:47 [facility] MCHC 34.0 32.8 - 36.4 g/dL 04/09/2023 10:47 [facility] RDW-CV 14.1 <14.2 % 04/09/2023 10:47 [facility] RDW-SD 45.1 <46.0 fl 04/09/2023 10:47 [facility] PLT 137(L) 141 - 377 K/cmm 04/09/2023 10:47 [facility] MPV 11.8 9.5 - 12.7 fL 04/09/2023 10:47 [facility] Blood VENOUS BLOOD / Unknown Venipuncture / Unknown 04/09/2023 9:30 EDT 04/09/2023 10:39 EDT Memo Odonnell MD HEMATOLOGY & PF4 ORD ERABLES [facility] [address] [place] [address] * (ABNORMAL) POCT GLUCOSE, INTERFACED (04/09/2023 8:25 EDT) Pathologist [facility] Glucose, POC 154(H) 70 - 100 mg/dL 04/09/2023 8:26 EDT [facility] HN LAB POC COMMENT (GLUCOSE) Test Performed by Nursing Services 04/09/2023 8:26 EDT [facility] Blood CAPILLARY BLOOD / Unknown 04/09/2023 8:25 EDT 04/09/2023 8:26 EDT Abdi Peoples POINT OF CARE TEST O RDERABLES Performing Organization Address [facility]/ZIP Co de Phone Number [facility] [address] [place] [address] * (ABNORMAL) POCT GLUCOSE, INTERFACED (04/08/2023 20:50 EDT) Glucose, POC 128(H) 70 - 100 mg/dL 04/08/2023 20:51 EDT [facility] HN LAB POC COMMENT (GLUCOSE) Test Performed by Nursing Services 04/08/2023 20:51 EDT [facility] Blood CAPILLARY BLOOD / Unknown 04/08/2023 20:50 EDT 04/08/2023 20:51 EDT Gillian Randolph MD POINT OF CARE TEST ORDERABLES Performing Organization Address [facility] Co de Phone Number [facility] [address] [place] [address] * (ABNORMAL) POCT GLUCOSE, INTERFACED (04/08/2023 18:11 EDT) Glucose, POC 131(H) 70 - 100 mg/dL 04/08/2023 18:12 EDT [facility] HN LAB POC COMMENT (GLUCOSE) Test Performed by Nursing Services 04/08/2023 18:12 EDT [facility] Blood CAPILLARY BLOOD / Unknown 04/08/2023 18:11 EDT 04/08/2023 18:12 EDT Rick Cuellar MD POINT OF CARE TEST ORDERABLES Performing Organization Address City/[facility]/ZIP Co de Phone Number [facility] [address] [place] [address] * ECG REPORT - SCANNED (04/08/2023 14:56 EDT) 04/08/2023 14:5 6 EDT Scan 2 Hypo Splasher PROCEDURE/MINOR GUSTAVO GICAL ORDERABLES * (ABNORMAL) POCT GLUCOSE, INTERFACED (04/08/2023 12:37 EDT) Pathologist [facility] Glucose, POC 115(H) 70 - 100 mg/dL 04/08/2023 12:39 EDT [facility] HN LAB POC COMMENT (GLUCOSE) Test Performed by Nursing Services 04/08/2023 12:39 EDT [facility] Blood CAPILLARY BLOOD / Unknown 04/08/2023 12:37 EDT 04/08/2023 12:39 EDT Gillian Randolph MD POINT OF CARE TEST ORDERABLES [facility] [address] [place] [address] * TRANSTHORACIC ECHO (TTE) COMPLETE W/DOPPLER W/CF [...] color Doppler.The study was interpreted by [facility]. Pertinent images and digital [...] i-STAT 7.38 7.31 - 7.41 04/08/2023 5:15 [facility] pCO2, Venous, i-STAT 29(L) 41 - 51 mmHg 04/08/2023 5:15 [facility] pO2, Venous, i-STAT 57(H) 30 - 50 mmHg 04/08/2023 5:15 [facility] TCO2, Venous, i-STAT 18(L) 22 - 28 mmol/L 04/08/2023 5:15 [facility] O2 Saturation, Venous, i-STAT 89(H) 60 - 85 % 04/08/2023 5:15 [facility] Base Excess(+) / Deficit(-), Venous, i-STAT -7(L) -2 - 3 mmol/L 04/08/2023 5:15 EDT [facility] Blood VENOUS BLOOD / Unknown 04/08/2023 5:11 EDT 04/08/2023 5:15 EDT Narrative [facility] - 04/08/2023 5:15 EDT Test Performed by Respiratory Antonio Melecio POINT OF CARE TEST O RDERABLES Performing Organization Address City/State/[facility] Co de Phone Number [facility] [address] [place] [address] * XR FEEDING TUBE PLACEMENT (04/08/2023 1:45 [...] above interpretation and agree with the findings. [id number] Procedure Note Ramirez Mendez MD - 04/08/2023 [...] the above interpretation andagree with the findings. [id number] Ac Fish MD IMG DIAGNOSTIC I MAGING [...] above interpretation and agree with the findings. [id number] Narrative 04/08/2023 8:53 EDT XR CHEST PORTABLE [...] the above interpretation andagree with the findings. [id number] Antonio Majano IMG DIAGNOSTIC IMAGI NG ORDERABLES * (ABNORMAL) FENTANYL AND METABOLITE CONFIRMATION PANEL (04/08/2023 1:22 EDT) Pathologist [facility] Fentanyl Confirmation >40(A) <2 ng/mL 04/09/2023 10:36 EDT [facility] Norfentanyl Confirmation 49(A) <10 ng/mL 04/09/2023 10:36 EDT [facility] Urine URINE / Unknown Urine Collect / Unknown 04/08/2023 1:22 EDT 04/08/2023 1:28 EDT Narrative [facility] - 04/09/2023 10:36 EDT Testing performed by: [facility] [address] [place] [address], [place] [address] [address] Freight Car Loader: Marco Morocho MD; CLIA # [id number] Antonio Majano GEN LAB UNIT COLLECT ORDERABLES [facility] [address] [place] [address] [phone] * CK (04/08/2023 1:22 EDT) Pathologist [facility] CK 82 <=250 U/L 04/08/2023 4:29 EDT [facility] Blood VENOUS BLOOD / Unknown Venipuncture / Unknown 04/08/2023 1:22 EDT 04/08/2023 1:28 EDT Antonio Majano CHEMISTRY & BLOOD GA S ORDERABLES [facility] [address] [place] [address] * MAGNESIUM (04/08/2023 1:22 EDT) Pathologist [facility] Magnesium 2.0 1.7 - 2.8 mg/dL 04/08/2023 2:08 EDT [facility] Blood VENOUS BLOOD / Unknown Venipuncture / Unknown 04/08/2023 1:22 EDT 04/08/2023 1:28 EDT Gillian Randolph MD CHEMISTRY & BLOOD GAS ORDERABLES [facility] [address] [place] [address] * (ABNORMAL) POCT GLUCOSE, INTERFACED (04/08/2023 1:22 EDT) Pathologist [facility] Glucose, POC 151(H) 70 - 100 mg/dL 04/08/2023 1:23 EDT [facility] HN LAB POC COMMENT (GLUCOSE) Test Performed by Nursing Services 04/08/2023 1:23 EDT [facility] Blood CAPILLARY BLOOD / Unknown 04/08/2023 1:22 EDT 04/08/2023 1:23 EDT Gillian Randolph MD POINT OF CARE TEST ORDERABLES Performing Organization Address City/[facility]/ZIP Co de Phone Number [facility] [address] [place] [address] * MRSA PCR (04/08/2023 1:22 EDT) [facility] MRSA/Staph aureus Result Staphylococcus aureus detected by PCR (MRSA NOT detected) 04/08/2023 10:57 EDT [facility] Swab BOTH ANTERIOR NARES / Unknown Swab / Unknown 04/08/2023 1:22 EDT 04/08/2023 1:44 EDT Antonio MICHEL - GENER AL ORDERABLES Performing Organization Address City/[facility]/ZIP Co de Phone Number [facility] [address] [place] [address] * (ABNORMAL) POLYSUBSTANCE USE PANEL, URINE (04/08/2023 1:22 EDT) [facility] Buprenorphine Screen, Urine Negative <5 ng/mL 04/08/2023 11:51 EDT [facility] Oxycodone Screen, Urine Negative <100 ng/mL 04/08/2023 11:51 [facility] Cotinine Screen, Urine Negative <500 ng/mL 04/08/2023 11:51 EDT [facility] Benzodiazepines Screen, Urine Positive(A) <200 ng/mL 04/08/2023 11:[facility] Amphetamines Screen, Urine Negative <1000 ng/mL 04/08/2023 11:51 [facility] Cocaine Metabolite Screen, Urine Negative <150 ng/mL 04/08/2023 11:51 [facility] THC Metabolites Screen, Urine Positive(A) <50 ng/mL 04/08/2023 11:51 [facility] Barbiturates Screen, Urine Negative <200 ng/mL 04/08/2023 11:51 [facility] Opiates Screen, Urine Negative <300 ng/mL 04/08/2023 11:51 [facility] Alcohol Metabolite (EtG) Screen, Urine Negative <500 ng/mL 04/08/2023 11:51 [facility] Methadone Screen, Urine Negative <300 ng/mL 04/08/2023 11:51 [facility] Fentanyl Screen with Reflex to Confirmation, U Positive(A) <1 ng/mL 04/08/2023 11:51 [facility] Comment: Trazodone is known to cross react with the Fentanyl immunoassay and may cause a false positive Urine URINE / Unknown Urine Collect / Unknown 04/08/2023 1:22 EDT 04/08/2023 1:28 EDT Narrative [facility] - 04/08/2023 11:51 EDT Testing performed by: [facility] [address] [place] [address], [address], [place] [address] Freight Car Loader: Marco Morocho MD; CLIA # [id number] Antonio MAURER LAB UNIT COLLECT ORDERABLES [facility] [address] [facility], [address] [place] [address], [facility] [phone] * FIBRINOGEN (04/08/2023 1:22 EDT) Pathologist [facility] Fibrinogen 323 171 - 384 mg/dL 04/08/2023 1:53 EDT [facility] Blood VENOUS BLOOD / Unknown Venipuncture / Unknown 04/08/2023 1:22 EDT 04/08/2023 1:32 EDT SwypeShield & PF4 ORD CLAREMONTBLES Performing Organization Address [facility] de Phone Number [facility] [address] [place] [id number] * PROTIME (04/08/2023 1:22 EDT) [facility] I.N.R. 1.1 0.9 - 1.1 Ratio 04/08/2023 1:53 EDT [facility] Pro Time 12.0 9.7 - 12.8 secs 04/08/2023 1:53 EDT [facility] Blood VENOUS BLOOD / Unknown Venipuncture / Unknown 04/08/2023 1:22 EDT 04/08/2023 1:32 EDT Narrative [facility] - 04/08/2023 1:53 EDT Moderate Intensity Coumadin INR = 2.0-3.0 Adjustments in anticoagulant therapy dose should be based on the INR and NOT on the Protime. SwypeShield & PF4 ORD KartoonArtBLES Performing Organization Address [facility] de Phone Number [facility] [address] [place], [place] [id number] * ETHANOL, BLOOD (04/08/2023 1:22 EDT) Pathologist [facility] Ethanol, Blood <10 <10 mg/dL mg/dL 04/08/2023 1:52 EDT [facility] Comment:Healthy, non-drinkin g individuals will have an ethanol concentration of <10 mg/dL. Blood VENOUS BLOOD / Unknown Venipuncture / Unknown 04/08/2023 1:22 EDT 04/08/2023 1:28 EDT [facility] CHEMISTRY & BLOOD GA S ORDERABLES [facility] [address] [place] [address] * TSH (04/08/2023 1:22 EDT) TSH 0.61 0.47 - 4.68 mIU/L 04/08/2023 2:25 EDT [facility] Blood VENOUS BLOOD / Unknown Venipuncture / Unknown 04/08/2023 1:22 EDT 04/08/2023 1:28 EDT Narrative [facility] - 04/08/2023 2:25 EDT The results of this assay can be falsely lowered due to the consumption of Biotin. [facility] CHEMISTRY & BLOOD GA S ORDERABLES Performing Organization Address [facility] Co de Phone Number [facility] [address] [place] [id number] * NT PRO BNP (04/08/2023 1:22 EDT) Pathologist [facility] NT-pro BNP <20 <299 pg/mL 04/08/2023 2:04 EDT [facility] Comment: In the acute setting NT-proBNP values <300 pg/mL have a 98% NPV for excluding acute heart failure. In outpatient populations, NT-proBNP values <125 have a 99% NPV for excluding heart failure. Blood VENOUS BLOOD / Unknown Venipuncture / Unknown 04/08/2023 1:22 EDT 04/08/2023 1:28 EDT [facility] CHEMISTRY & BLOOD GA S ORDERABLES Performing Organization Address [facility] Co de Phone Number [facility] [address] [place] [phone] * (ABNORMAL) COMPREHENSIVE METABOLIC PANEL (CMP) (04/08/2023 1:22 EDT) Sodium 144 136 - 145 mmol/L 04/08/2023 1:52 EDT [facility] Potassium 3.8 3.5 - 5.0 mmol/L 04/08/2023 1:52 [facility] Chloride 111(H) 96 - 110 mmol/L 04/08/2023 1:52 [facility] CO2 Total 19(L) 22 - 32 mmol/L 04/08/2023 1:52 [facility] Glucose 152(H) 70 - 99 mg/dl 04/08/2023 1:52 [facility] BUN 10 10 - 26 mg/dL 04/08/2023 1:52 [facility] Creatinine 0.92 0.66 - 1.25 mg/dL 04/08/2023 1:52 [facility] eGFR 98 >60 mL/min/1.7 3m2 04/08/2023 1:52 [facility] Total Protein 6.2(L) 6.3 - 8.2 g/dL 04/08/2023 1:52 [facility] Albumin 3.7 3.4 - 4.9 g/dL 04/08/2023 1:52 [facility] Alkaline Phosphatase 53 38 - 126 U/L 04/08/2023 1:52 [facility] AST 25 15 - 46 U/L 04/08/2023 1:52 [facility] ALT 18 <50 U/L 04/08/2023 1:52 [facility] Bilirubin, Total <0.5 <1.4 mg/dL 04/08/20 23 1:52 [facility] Calcium 8.5 8.5 - 10.5 mg/dL 04/08/2023 1:52 [facility] Albumin/Globulin Ratio 1.5 1.0 - 2.5 g/dL 04/08/2023 1:52 [facility] Anion Gap 14 5 - 14 mmol/L 04/08/2023 1:52 [facility] Blood VENOUS BLOOD / Unknown Venipuncture / Unknown 04/08/2023 1:22 [facility] 04/08/2023 1:28 EDT Antonio Majano CHEMISTRY & BLOOD GA S ORDERABLES [facility] [address] [place] [address] * (ABNORMAL) COMPLETE BLOOD COUNT (04/08/2023 1:22 EDT) WBC 13.25(H) 4.00 - 10.40 K/cmm 04/08/2023 1:37 EDT [facility] RBC 4.61 4.36 - 5.78 M/cmm 04/08/2023 1:37 EDT [facility] Hemoglobin 13.2(L) 13.8 - 17.3 g/dL 04/08/2023 1:37 EDT [facility] HCT 40.8 39.5 - 50.2 % 04/08/2023 1:37 EDT [facility] MCV 89 81 - 95 fL 04/08/2023 1:37 EDT [facility] MCH 28.6 27.6 - 33.0 pg 04/08/2023 1:37 EDT [facility] MCHC 32.4(L) 32.8 - 36.4 g/dL 04/08/2023 1:37 T [facility] RDW-CV 14.5(H) <14.2 % 04/08/2023 1:37 EDT [facility] RDW-SD 46.4(H) <46.0 fl 04/08/2023 1:37 EDT [facility] PLT 203 141 - 377 K/cmm 04/08/2023 1:37 EDT [facility] MPV 10.3 9.5 - 12.7 fL 04/08/2023 1:37 [facility] Blood VENOUS BLOOD / Unknown Venipuncture / Unknown 04/08/2023 1:22 EDT 04/08/2023 1:28 EDT Antonio Majano HEMATOLOGY & PF4 ORD ERABLES [facility] [address] [place] [phone] * EKG 12-LEAD (04/08/2023 0:23 EDT) 04/08/2023 0:23 EDT Narrative [facility] - 04/08/2023 14:50 EDT ? [facility] ? Test Date: ?2023-04-08 Pat Name: ? ROMEO LAQUITA ?Department: ?? MICU ? Room: ? M412 Gender: ? Male ? [employer]visor [employer]: ?? : ?[id number] ? Requested By: MELECIO SINGH Order Number: [id number] ? Reading MD: ?? BRANDO LAYNE MD ? Measurements Intervals ?[place] ? Rate: ? 81 ? P: ?29 SD: ? 153 ?QRS: ?33 QRSD: ? 98 ? T: ?41 QT: ? 362 ? QTc: ?422 ? Interpretive Statements SINUS RHYTHM I reviewed the tracing and have either agreed or edited the findings in this report. Electronically Signed On 04-08-2023 14:50:57 EDT by BRANDO LAYNE MD. 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 Electronically Signed On 04-08-2023 14:50:57 EDT by BRANDO BARRAZA. Antonio Majano CARDIAC ECG ORDERABL ES [facility] documented in this encounter Visit Diagnoses Diagnosis Encephalopathy- Primary Encephalopathy, unspecified Acute respiratory failure with hypoxia (HCC-CMS) Acute respiratory failure Cerebrovascular accident (CVA), unspecified mechanism (HCC-CMS) Encephalopathy Encephalopathy, unspecified Syncope, unspecified syncope type Acute respiratory failure with hypoxia (HCC-CMS) Acute respiratory failure Unstable angina (HCC-CMS) ([facility]) Intermediate coronary syndrome CAD (coronary artery disease) Coronary atherosclerosis of unspecified type of vessel, t[place] apache or graft Anxiety and depression Dysthymic disorder [...] in this encounter Orders Medications Ordered That Unno ht Not Have Been Administered Count Last [...] 03/24 documented in this encounter Care Teams Agriculture Worker Relationship Specialty Start Date End Date Coni Lim MD [address] [place] [address] PCP - General 12/17/11 documented as of this encounter
--- OUTSIDE RECORDS SUMMARY | 2024-04-30 18:23 | XMS_ITS | Encounter Summary ---
Author Organization [facility] [place] [address] Care Team Providers Care Reference And Instruction Librarian Name Role Phone Coni Lim MD Primary Care Provider [phone] Encounter Details Date Type Department Care Team (Late st Contact Info) Description 06/04/2012 Telephone [place] [address] Chester Ptits, RN Social History Tobacco Use Types Packs/Day [...] on filedocumented in this encounter Care Teams Reference And Instruction Librarian Relationship Specialty Start Date End Date Coni Lim MD [address] [place] [address] PCP - General 07/16/10 documented as of this encounter
--- OUTSIDE RECORDS SUMMARY | 2024-04-30 18:23 | XMS_ITS | Referral Summary ---
Author Organization [facility] Address [address] [place] [address] Care Team Providers Care Volunteer Coordinator Name Role Phone Coni Lim MD Primary Care Provider [phone] Allergies Active Allergy Reactions Criticality Noted Date [...] Encephalopathy 04/08/2023 Acute respiratory failure with hypoxia ([facility]) 04/08/2023 Idiopathic hypotension 04/08/2023 CVA (cerebral vascular accident) ([facility]) 03/15 Anxiety and depression 02/22/2014 Unstable angina ([facility]) 02/15/2014 CAD (coronary artery disease) 02/15/2014 Syncope [...] Advance Directives For more information, please contact: [phone] * Full Code (Latest Code Status on [...] Comments 02/14/2014 22:30 02/16/2014 17:34 Care Teams Volunteer Coordinator Relationship Specialty Start Date End Date Coni Lim MD [address] [place] [id number] PCP - General 12/17/11
--- OUTSIDE RECORDS SUMMARY | 2024-04-30 18:23 | XMS_ITS | Encounter Summary ---
Author Organization Formerly [facility] Address [facility] [place] [address] Care Team Providers Care Librarian Specialist Name Role Phone Sarita Chew MD Primary Care Provider [phone] Encounter Details Date Type Department Care Team (Latest Contact Info) Description 06/03/2012 5:57 PM EDT - 06/04/2012 10:33 AM EDT Hospital Encounter [place] [id number] Kathie Cotter MD [facility] [place] [address] CAD (coronary artery disease), non-obstructive; S/P coronary [...] appointments: During 8am-5pm Thursday through Thursday call [phone] to speak with a nurse in the cardiology clinic All other times call [phone] and ask to speak to the voice network administrator control officer manager. Return to work: One week Driving: No driving for 48 hours after catheterization. Follow up Appointments: PCP: SARITA CHEW MD , Call for appointment in 1-2 weeks. Teacher Aide: Dr Leyva, You should be seen in 3-4 weeks for follow up. Please call for appointment * Attachments The following attachments cannot be sent through Care Everywhere. * PERCUTANEOUS CORONARY INTERVENTION: WHAT TO EXPECT AT HOME (MALIAN) * CHEST PAIN (ANGINA): AFTER YOUR VISIT (MALIAN) documented in this encounter Medications at Time [...] NSR Meds: Current facility-administered medications ordered in [facility] Medication Dose Route Frequency Provider Last [...] in sodium chloride 0.9% 50 mL infusion (WILDLIFE CONSERVATIONIST) Intravenous Continuous PRN Kathie Cotter MD Last Dose: 194.3 mg/hr at 06/03/12 1509 ??? DISCONTD: adenosine 90 mg in sodium chloride 0.9% 90 mL infusion (WILDLIFE CONSERVATIONIST) Intravenous Continuous PRN Kathie Cotter MD Last [...] Family History: Father-, pre-mature CAD (age 46), [place], CABG Uncle +CAD Mother, DM, HTN. HLP [...] Seen by Dr Leyva in March; [facility] +JACINDA candidate. 2. HTN, stable, 3. [...] 06/04/2012 10:04 PM EDTAssociated Order(s): SCAN DOC: TREAD BOOKER * Provider, Scanning - 06/03/2012 4:39 PM [...] to the outpatient cardiac rehabilitation program at [facility] was discussed. A referral will be sent [...] appointments: During 8am-5pm Thursday through Thursday call [phone] to speak with a nurse in the cardiology clinic All other times call [phone] and ask to speak to the voice network administrator control officer manager. Return to work: One week Driving: No driving for 48 hours after catheterization. Follow up Appointments: PCP: SARITA CHEW MD , Call for appointment in 1-2 weeks. Teacher Aide: Dr Leyva, You should be seen in 3-4 weeks for follow up. Please call for appointment General Instructions None Future Appointments and Orders Future Appointments: Provider: Department: Dept Phone: Center: 06/04/2012 4:45 PM Echo Inpatient Add-On [facility] Non-Inv Card Lab [phone] None Provider Contact Information: Dr. Kathie Stephen Section of Cardiology [facility] [phone] Discharge References/Attachments: Discharge References/Attachments None Signed: Bryan Stephen MD DATE: 06/04/2012 * Miscellaneous - Provider, Scanning - 06/03/2012 11:02 AM EDT documented in this encounter Plan of Treatment Not on file documented as of this encounter Procedures Procedure Name Priority Date/Time Associated Diagnosis Comments CARDIAC CATHETERIZATION Routine 06/07/20 2:15 PM EDT TREAD BOOKER SCAN 06/04/2012 10:04 PM EDT ECHOCARDIOGRAM TRANSTHORACIC [...] CAD (coronary artery disease), non-obstructive CARDIAC ENZYMES ([facility]) STAT 06/03/2012 4:00 PM EDT CARDIAC CATHETERIZATION 06/03/20 12 2:02 PM EDT CP POCT GLUCOSE Routine 06/03/2012 11:11 AM EDT documented in this encounter Results * Cardiac Catheterization (06/07/2012 2:15 PM EDT) Anatomical Region Laterality Modality Other Narrative 06/03/2012 4:39 PM EDT Procedure Note Provider, Scanning - 06/03/2012 4:39 PM EDT Kathie Cotter MD CARDIAC CATH ORDERAB LES * SCAN DOC: TREAD BOOKER (06/04/2012 10:04 PM EDT) Anatomical Region Laterality Modality Other Narrative 06/06/2012 2:36 AM EDT Procedure Note Provider, Scanning - 06/04/2012 10:04 PM EDT Scanning Provider MEDIA MGR SCAN EXT O RDR/RSLT * Echo Transthoracic (Complete) (06/04/2012 8:57 AM EDT) [facility] Signature EF 60 [employer] Anatomical Region Laterality Modality Other 06/04/2012 Narrative 06/04/2012 9:13 AM EDT Procedure: ? Transthoracic Echocardiogram Patient: ? COELHO ROMEO A ?(Age): 1965(46) Med Rec#: ?[id number] ? Sex: ?M ? Site Loc: ?[facility] ? Ht / Wt: ??176(cm)/122(kg) Pt. Loc: ? Adult Floor ?BSA: ?2.44 Study Date: ?06/04/2012 ? Pt. Type: Inpatient Tape: ? Referring: Kathie Cotter Residential Collections: Khoi Gaines [facility] Residential Collections 2: Mason Duron ([id number]) Diagnosis: ??Chest pain (786.50) CPT Code(s): ??Echo Full (88912), ??Spectral Doppler (32339), ??Color Doppler (76670), ??Definity (49611MM), Indication(s): ??Chest Pain Rhythm: HR ?BP 78 [...] ? Mid-Inferior ?Normal ? Mid-Inferoseptal ?Normal ? [place]-Septal ? Normal ? [place]-Anterior ? Normal ? [place]-Lateral ?Normal ? [place]-Inferior ? Normal ? [place]-Tip ?Normal ? Chambers ?Value ?Units (Range) ? [...] 06/04/2012 09:12:51 Images reviewed and interpretation verified [facility] Cardiac Ultrasound Laboratory Procedure Note Christos Buchanan MD - 06/04/2012 Procedure: Transthoracic Echocardiogram Patient: LAQUITA Pop (Age): 1965(46) Med Rec#: [id number] Sex: M Site Loc: [facility] Ht / Wt: 176(cm)/122(kg) Pt. Loc: Adult Floor BSA: 2.44 Study Date: 06/04/2012 Pt. Type: Inpatient Tape: Referring: Kathie Cotter Residential Collections: [employer]hoi Gaines [facility] Residential Collections 2: Mason Duron ([id number]) Diagnosis: Chest pain (786.50) CPT Code(s): Echo Full (44473), Spectral Doppler (17626), Color Doppler (63548), Definity (39213EN), Indication(s): Chest Pain Rhythm: HR BP 78 [...] Normal Mid-Posterolateral Normal Mid-Inferior Normal Mid-Inferoseptal Normal [place]-Septal Normal [place]-Anterior Normal [place]-Lateral Normal [place]-Inferior Normal [place]-Tip Normal Chambers Value Units (Range) LV EF [...] 06/04/2012 09:12:51 Images reviewed and interpretation verified [facility] Cardiac Ultrasound Laboratory Kathie Cotter MD ECHO ORDERABLES * POCT GLUCOSE (06/04/2012 7:06 AM EDT) [facility] Glucose, POC 183 60 - 199 mg/dL [facility] Comment: Supplemental ranges: <110 mg/dL before meals <200 mg/dL all other times of the day Blood specimen (specimen) 06/04/2012 7:06 AM EDT 06/04/2012 7:06 AM EDT Kathie Cotter MD POINT OF CARE TEST O RDERABLES Performing Organization Address [facility] de Phone Number [facility] * EKG 12-LEAD (06/04/2012 6:07 AM EDT) [facility] [address] Ventricular rate 77 BPM MUSE SYSTEM Atrial Rate 77 BPM MUSE SYSTEM P-R Interval 150 ms MUSE SYSTEM QRS Duration 92 ms MUSE SYSTEM Q-T Interval 372 ms MUSE SYSTEM QTC Calculated (Bezet) 420 ms MUSE SYSTEM Calculated P [place] 30 degrees MUSE SYSTEM Calculated R [place] 37 degrees MUSE SYSTEM Calculated T [place] 30 degrees MUSE SYSTEM INTERPRETATION Normal sinus rhythm Normal ECG When compared with ECG of 03-JUN-2012 16:38, No significant change was found Confirmed by MD Mirtha, Cali ([id number]) on 06/04/2012 1:38:26 PM MUSE SYSTEM 06/04/2012 6:07 AM EDT 06/04/2012 1:38 PM EDT Unknown ECG ORDERABLES Performing Organization Address [facility] Co de Phone Number MUSE SYSTEM * (ABNORMAL) BMP w/fasting Glucose (06/04/2012 6:05 AM EDT) [facility] [address] Glucose Fasting 185(H) 65 - 99 mg/dL [...] of Diabetes Mellitus, Position Statement from the [place] Diabetes Association. ??Diabetes Care, Volume 33, Supplement [...] Lab Kathie Cotter MD CHEMISTRY ORDERABLES [facility] * (ABNORMAL) LDL CHOLESTEROL, DIRECT (06/04/2012 4:45 AM EDT) LDL Cholesterol, Direct 108(H) <=99 mg/dL [facility] Comment: The National Cholesterol Education Program (NCEP) has set the following guidelines for LDL Cholesterol: Reference range: ?? Optimal: ?<100 mg/dL ?? Near Optimal/Above Optimal: ?? 100-129 mg/dL ?? Borderline high: ?130-159 mg/dL ?? High: ? 160-189 mg/dL ?? Very high: ?>bc=835 mg/dL RACHEL 2001: 28519):9144-1910 Blood specimen (specimen) 06/04/2012 4:45 AM EDT [...] Gran Absolute 0.02 0.00 - 0.05 x10(3)/mcL [facility] Blood specimen (specimen) 06/04/2012 4:45 AM EDT 06/04/2012 4:55 AM EDT Kathie Cotter MD HEMATOLOGY ORDERABLE S Performing Organization Address [facility] de Phone Number [facility] * Alkaline Phosphatase (06/04/2012 4:45 AM EDT) Alkaline Phosphatase 53 40 - 120 unit/L [facility] Blood specimen (specimen) 06/04/2012 4:45 AM EDT 06/04/2012 4:55 AM EDT Narrative Resulting Agency Comment Spec In Lab Kathie Cotter MD CHEMISTRY ORDERABLES Performing Organization Address [facility] de Phone Number [facility] * Alanine Aminotransferase (06/04/2012 4:45 AM EDT) Alanine Aminotransferase 31 0 - 55 unit/L [facility] Blood specimen (specimen) 06/04/2012 4:45 AM EDT 06/04/2012 4:55 AM EDT Narrative Resulting Agency Comment Spec In Lab Kathie Cotter MD CHEMISTRY ORDERABLES Performing Organization Address [facility] de Phone Number [facility] * Aspartate Aminotransferase (06/04/2012 4:45 AM EDT) Aspartate Aminotransferase 31 0 - 39 unit/L [facility] Blood specimen (specimen) 06/04/2012 4:45 AM EDT 06/04/2012 4:55 AM EDT Narrative Resulting Agency Comment Spec In Lab Kathie Cotter MD CHEMISTRY ORDERABLES Performing Organization Address [facility] Co de Phone Number [facility] * (ABNORMAL) Hemoglobin A1c (06/04/2012 4:45 AM EDT) Hemoglobin A1c 6.5(H) 4.3 - 6.1 % [facility] Estimated Average Glucose 140 mg/dL [facility] Comment: eAG equivalents for HbA1c percentages: [...] into estimated average glucose values. ??Diabetes Care 2008:31(8):0871-0475. Blood specimen (specimen) 06/04/2012 4:45 AM EDT 06/04/2012 4:55 AM EDT Narrative Resulting Agency Comment Spec In Lab Kathie Cotter MD CHEMISTRY ORDERABLES Performing Organization Address [facility] Co de Phone Number [facility] * (ABNORMAL) Lipid panel (fasting) (06/04/2012 4:45 AM EDT) [facility] [address] [facility] Cholesterol, Total 186 <=199 mg/dL [facility] Comment: Recommendations of the NCEP Adult Treatment Panel for the following risk cutoff thresholds for the [place] population: Desirable: <200 mg/dL Borderline High: 200-239 mg/dL High: > or = 240 mg/dL Triglyceride 412(H) <=149 mg/dL [facility] Comment: Reference Range: Normal triglycerides: ??<150 mg/dL Borderline high: ??150-199 mg/dL High: ??200-499 mg/dL Very high: ??>rv=516 mg/dL RACHEL 2001; 285(19):1103-1294 HDL Cholesterol 25(L) >=40 mg/dL [facility] Comment: Reference range: ??Low HDL: ?? < 40 mg/dL ??Normal: ?40-60 mg/dL ??Desirable: > 60 mg/dL RACHEL 2001; 285(19):7717-8667 LDL Cholesterol Not Calculated <=99 mg/dL [facility] Comment: Since a calculated LDL value is not valid for triglycerides greater than 400 mg/dl, a direct LDL determination is performed instead. Reference range: ?? Optimal: ?<100 mg/dL ?? Near Optimal/Above Optimal: ?? 100-129 mg/dL ?? Borderline high: ?130-159 mg/dL ?? High: ? 160-189 mg/dL ?? Very high: ?>ye=499 mg/dL RACHEL 2001: 285(19):2835-6937 Cholesterol/HDL Ratio 7.4 ratio [facility] Comment: A Cholesterol to HDL ratio below 4:1 is desirable. ??Studies suggest that increased CAD risk occurs at ratios above 5 for females and above 6 for men. ? [place] Heart Association ??(http://www.americanheart.org) ? Pallavi Int Med, 1994; 121:641 ? AM J Med, 1998; 105(1A):48S Blood specimen (specimen) 06/04/2012 4:45 AM EDT 06/04/2012 4:55 AM EDT Narrative Resulting Agency Comment Spec In Lab Kathie Cotter MD CHEMISTRY ORDERABLES Performing Organization Address [facility] de Phone Number [facility] * (ABNORMAL) Cardiac Enzymes (06/04/2012 4:45 AM EDT) Troponin-T 0.07(H) <=0.03 ng/mL [facility] Comment: 0.03 ng/mL: Represents the 99th [...] consensus document of the Joint Society of Cardiology/[place] College of Cardiology Committee for the redefinition of myocardial infarction. Journal of the [place] College of Cardiology 2000; 36: 959-969] Creatine Kinase 150 0 - 200 unit/L [facility] Comment:result rechecked-[facility] Blood specimen (specimen) 06/04/2012 4:45 AM EDT 06/04/2012 4:55 AM EDT Narrative Resulting Agency Comment Spec In Lab Kathie Cotter MD CHEMISTRY ORDERABLES Performing Organization Address [facility] Co de Phone Number [facility] * CBC (with Diff) (06/04/2012 4:45 AM EDT) White Blood Cell 6.4 4.0 - 10.0 x10(3)/mcL [facility] Red Blood Cell 4.78 4.63 - 6.08 x10(6)/mcL [facility] Hemoglobin 14.6 13.7 - 17.5 gm/dL [facility] Hematocrit 42.7 40.0 - 51.0 % [facility] Mean Cell Volume 89.3 79.0 - 92.0 fL [facility] Mean Cell Hemoglobin 30.5 25.6 - 32.2 pg [facility] Mean Cell Hemoglobin Concentration 34.2 32.0 - 36.5 gm/dL [facility] Platelet 154 145 - 370 x10(3)/mcL [facility] RDW Standard Deviation 41.0 35.0 - 46.0 fL [facility] RDW coefficient of variation 12.7 10.9 - 14.4 % [facility] Mean Platelet Volume 10.1 9.0 - 12.0 fL [facility] Blood specimen (specimen) 06/04/2012 4:45 AM EDT 06/04/2012 4:55 AM EDT Narrative Resulting Agency Comment Spec In Lab Kathie Cotter MD HEMATOLOGY ORDERABLE S Performing Organization Address [facility] Co de Phone Number [facility] * POCT GLUCOSE (06/03/2012 9:31 PM EDT) Glucose, POC 163 60 - 199 mg/dL [facility] Comment: Supplemental ranges: <110 mg/dL before meals <200 mg/dL all other times of the day Blood specimen (specimen) 06/03/2012 9:31 PM EDT 06/03/2012 9:31 PM EDT Kathie Cotter MD POINT OF CARE TEST O RDERABLES Performing Organization Address [facility] Co de Phone Number [facility] * POCT GLUCOSE (06/03/2012 6:10 PM EDT) Glucose, POC 97 60 - 199 mg/dL [facility] Comment: Supplemental ranges: <110 mg/dL before meals <200 mg/dL all other times of the day Blood specimen (specimen) 06/03/2012 6:10 PM EDT 06/03/2012 6:10 PM EDT Kathie Cotter MD POINT OF CARE TEST O RDERABLES Performing Organization Address [facility] Co de Phone Number [facility] * EKG 12 Lead (06/03/2012 4:38 PM EDT) Ventricular rate 74 BPM MUSE SYSTEM Atrial Rate 74 BPM MUSE SYSTEM P-R Interval 150 ms MUSE SYSTEM QRS Duration 92 ms MUSE SYSTEM Q-T Interval 372 ms MUSE SYSTEM QTC Calculated (Bezet) 412 ms MUSE SYSTEM Calculated P [place] 46 degrees MUSE SYSTEM Calculated R [place] 25 degrees MUSE SYSTEM Calculated T [place] 29 degrees MUSE SYSTEM INTERPRETATION Normal sinus rhythm Normal ECG When compared with ECG of 18-JAN-2010 07:42, No significant change was found Confirmed by MD Shannon Robert ([id number]) on 06/04/2012 7:52:23 AM MUSE SYSTEM 06/03/2012 4:38 PM EDT 06/04/2012 7:52 AM EDT Kathie Cotter MD ECG ORDERABLES Performing Organization Address [facility] de Phone Number MUSE SYSTEM * Cardiac Enzymes (06/03/2012 4:00 PM EDT) [facility] Troponin-T <0.03 <=0.03 ng/mL [facility] Comment: 0.03 ng/mL: Represents the 99th [...] consensus document of the Joint Society of Cardiology/[place] College of Cardiology Committee for the redefinition of myocardial infarction. Journal of the [place] College of Cardiology 2000; 36: 959-969] Creatine Kinase 41 0 - 200 unit/L [facility] Blood specimen (specimen) 06/03/2012 4:00 PM EDT 06/03/2012 4:12 PM EDT Narrative Resulting Agency Comment Spec In Lab Kathie Cotter MD CHEMISTRY ORDERABLES Performing Organization Address City/[facility]/ZIP Co de Phone Number [facility] * POCT GLUCOSE (06/03/2012 11:11 AM EDT) Glucose, POC 147 60 - 199 mg/dL [facility] Comment: Supplemental ranges: <110 mg/dL before meals <200 mg/dL all other times of the day Blood specimen (specimen) 06/03/2012 11:11 AM EDT 06/03/2012 11:11 AM EDT Kathie Cotter MD POINT OF CARE TEST O RDERABLES Performing Organization Address [facility] Co de Phone Number [facility] documented in this encounter Visit Diagnoses Diagnosis CAD (coronary artery disease), non-obstructive- Primary Coronary atherosclerosis of unspecified type of vessel, upper [place] or graft S/P coronary artery stent placement [...] in sodium chloride 0.9% 90 mL infusion (WILDLIFE CONSERVATIONIST) (CANCELED) Intravenous, CONTINUOUS PRN, Starting on Martha 06/03/12 at 1511, Until Martha 06/03/12 at 1734, Cath (Intra-Procedure), Routine 1511 (New Bag - Provider: Dustin Carlton Jr.)1521 (Stopped - Provider: Tawanda Agarwal RN) bivalirudin (ANGIOMAX) 250 mg in sodium chloride 0.9% 50 mL infusion (WILDLIFE CONSERVATIONIST) (CANCELED) Intravenous, CONTINUOUS PRN, Starting on Martha [...] MD) documented in this encounter Care Teams Librarian Specialist Relationship Specialty Start Date End Date Sarita Chew MD [address] [place] [address] PCP - General 07/16/10 documented as of this encounter
--- OUTSIDE RECORDS SUMMARY | 2024-04-30 18:23 | XMS_ITS | Clinical Summary ---
Author Organization [facility] Address [address] [place] [address] Care Team Providers Care Language Arts Teacher Name Role Phone Coni Lim MD Primary Care Provider [phone] Allergies Active Allergy Reactions Criticality Noted Date [...] Encephalopathy 04/08/2023 Acute respiratory failure with hypoxia ([facility]) 04/08/2023 Idiopathic hypotension 04/08/2023 CVA (cerebral vascular accident) ([facility]) 03/15 Anxiety and depression 02/22/2014 Unstable angina ([facility]) 02/15/2014 CAD (coronary artery disease) 02/15/2014 Syncope Surgical History Surgery Date Site/Laterality Comments GALLBLADDER SURGERY Medical History Medical History Date Comments HTN (hypertension) HLD (hyperlipidemia) DMII (diabetes mellitus, type 2) ([facility]) CAD (coronary artery disease) Smoking Depression Fibromyalgia [...] Advance Directives For more information, please contact: [phone] * Full Code (Latest Code Status on [...] Comments 02/14/2014 22:30 02/16/2014 17:34 Care Teams Language Arts Teacher Relationship Specialty Start Date End Date Coni Lim MD [address] [place] [address] PCP - General 12/17/11
--- OUTSIDE RECORDS SUMMARY | 2024-04-30 18:23 | XMS_ITS | Encounter Summary ---
Author Organization [facility] Address [facility] [place] [address] Care Team Providers Care Manager Recovery Name Role Phone Coni Lim MD Primary Care Provider [phone] Encounter Details Date Type Department Care Team (Late st Contact Info) Description 05/31/2012 Orders Only Cardiology at [address] [phone] Remedios Burleson, [place] [facility] [place] [place] [address] CAD (coronary artery disease), non-obstructive (Primary Dx) [...] Coronary atherosclerosis of unspecified type of vessel, [place] or graft documented in this encounter Care Teams Manager Recovery Relationship Specialty Start Date End Date Coni Lim MD [address] [place] [address] PCP - General 07/16/10 documented as of this encounter
--- OUTSIDE RECORDS SUMMARY | 2024-04-30 18:23 | XMS_ITS | Encounter Summary ---
Author Organization [facility] Address [facility] [place] [address] Care Team Providers Care Ic Designer Standard Cells Name Role Phone Coni Lim MD Primary Care Provider [phone] Encounter Details Date Type Department Care Team (Late st Contact Info) Description 06/14/2012 Orders Only Cardiology at [address] [phone] Bryan Iverson MD [facility] CARDIOLOGY [place] [id number] Social History Tobacco Use Types Packs/Day Years [...] PM EDT) 06/14/2012 1:26 PM EDT Narrative [facility] - 03/13/2014 6:59 PM EDT This is a non-reportable exam. Procedure Note Shukri Mckee - 03/13/2014 This is a non-reportable exam. Bryan Iverson MD IM FILM LIBRARY ORD ERABLES RAD [address] [place] [address] documented in this encounter Visit Diagnoses Not on filedocumented in this encounter Care Teams Ic Designer Standard Cells Relationship Specialty Start Date End Date Coni Lim MD [address] [place] [address] PCP - General 07/16/10 documented as of this encounter
--- OUTSIDE RECORDS SUMMARY | 2024-04-30 18:23 | XMS_ITS | Encounter Summary ---
Author Organization [facility] Address [facility] [place] [address] Care Team Providers Care Pre Kindergarten Teacher Name Role Phone Coni Lim MD Primary Care Provider [phone] Encounter Details Date Type Department Care Team (Late st Contact Info) Description 06/04/2012 Orders Only Cardiology at [address] [address] Antonio Rivas MD [facility] [place] [address] CAD (coronary artery disease) (Primary Dx) Social [...] Coronary atherosclerosis of unspecified type of vessel, false pass or graft documented in this encounter Care Teams Pre Kindergarten Teacher Relationship Specialty Start Date End Date Coni Lim MD [address] [place], [place] [address] PCP - General 07/16/10 documented as of this encounter
--- OUTSIDE RECORDS SUMMARY | 2024-04-30 18:23 | XMS_ITS | Encounter Summary ---
Author Organization [facility] Address [facility] [place] [address] Care Team Providers Care Cuff Stitcher Name Role Phone Coni Lim MD Primary Care Provider [phone] Encounter Details Date Type Department Care Team (Late st Contact Info) Description 06/14/2012 Orders Only Cardiology at [address] [address] Bryan Iverson MD [facility] CARDIOLOGY [place] [id number] Social History Tobacco Use Types Packs/Day Years [...] MD IM FILM LIBRARY ORD ERABLES RAD [address] [employer] [address] documented in this encounter Visit Diagnoses Not on filedocumented in this encounter Care Teams Cuff Stitcher Relationship Specialty Start Date End Date Coni Lim MD [address] [place] [address] PCP - General 07/16/10 documented as of this encounter
--- OUTSIDE RECORDS SUMMARY | 2024-04-30 18:23 | XMS_ITS | Encounter Summary ---
Author Organization [facility] Address [facility] [place] [address] Care Team Providers Care Mechanical Research Engineer Name Role Phone Sarita Lim MD Primary Care Provider [phone] Encounter Details Date Type Department Care Team (Late st Contact Info) Description 06/03/2012 9:55 AM EDT - 06/03/2012 10:55 AM EDT [place] [id number] Kathie Cotter MD [facility] [place] [address] CARDIAC CATHETERIZATION Social History Tobacco Use Types [...] appointments: During 8am-5pm Thursday through Thursday call [phone] to speak with a nurse in the cardiology clinic All other times call [phone] and ask to speak to the director of cardiology conservation policy analyst. Return to work: One week Driving: No driving for 48 hours after catheterization. Follow up Appointments: PCP: SARITA LIM MD , Call for appointment in 1-2 weeks. Batt Packer: Dr Leyva, You should be seen in 3-4 weeks for follow up. Please call for appointment * Attachments The following attachments cannot be sent through Care Everywhere. * PERCUTANEOUS CORONARY INTERVENTION: WHAT TO EXPECT AT HOME ([place]) * CHEST PAIN ([place]): AFTER YOUR VISIT ([place]) documented in this encounter Medications at Time [...] NSR Meds: Current facility-administered medications ordered in [facility] Medication Dose Route Frequency Provider Last Rate [...] in sodium chloride 0.9% 50 mL infusion (SALOON KEEPER) Intravenous Continuous PRN Kathie Cotter MD Last Dose: 194.3 mg/hr at 06/03/12 1509 ??? DISCONTD: adenosine 90 mg in sodium chloride 0.9% 90 mL infusion (SALOON KEEPER) Intravenous Continuous PRN Kathie Cotter MD Last [...] for the 06/03/12 encounter (Hospital Encounter) with KATIHE COTTER Medication Sig Dispense Refill ??? aspirin [...] and is s/p PCI with placement of JACINAD to mLAD and pOM1. Plan: - admit [...] Family History: Father-, pre-mature CAD (age 46), VA, CABG Uncle +CAD Mother, DM, HTN. HLP [...] to arthritis and fibromyalgia Provider: LENORE HOFFMAN 5600 documented in this encounter Procedure Notes * Provider, Scanning - 06/04/2012 10:04 PM EDTAssociated Order(s): SCAN DOC: SIGNAL PERSON * Provider, Scanning - 06/03/2012 4:39 PM EDTAssociated Order(s): CARDIAC CATHETERIZATION documented in this encounter Miscellaneous Notes * Miscellaneous - Provider, Scanning - 06/04/2012 10:21 PM EDT * Miscellaneous - Provider, Scanning - 06/04/2012 10:04 PM EDT * Consult Note - Zunilda Fletcher RN - 06/04/2012 9:26 AM EDT Romeo Coe was seen today by Cardiac [...] to the outpatient cardiac rehabilitation program at [facility] was discussed. A referral will be sent [...] ??? CAD (coronary artery disease), non-obstructive - [facility] 2009 post abnormal nuc stress +IW, [...] appointments: During 8am-5pm Thursday through Thursday call [phone] to speak with a nurse in the cardiology clinic All other times call [phone] and ask to speak to the director of cardiology conservation policy analyst. Return to work: One week Driving: No driving for 48 hours after catheterization. Follow up Appointments: PCP: SARITA LIM MD , Call for appointment in 1-2 weeks. Batt Packer: Dr Leyva, You should be seen in 3-4 weeks for follow up. Please call for appointment General Instructions None Future Appointments and Orders Future Appointments: Provider: Department: Dept Phone: Center: 06/04/2012 4:45 PM Echo Inpatient Add-On [facility] Non-Inv Card Lab [phone] None Provider Contact Information: Dr. Kathie Stephen Section of Cardiology [facility] [phone] Discharge References/Attachments: Discharge References/Attachments None Signed: Bryan Stephen MD DATE: 06/04/2012 * Miscellaneous - Provider, Scanning - 06/03/2012 11:02 AM EDT documented in this encounter Plan of Treatment Not on file documented as of this encounter Procedures Procedure Name Priority Date/Time Associated Diagnosis Comments CARDIAC CATHETERIZATION Routine 06/07/20 12 2:15 PM EDT SIGNAL PERSON SCAN 06/04/2012 10:04 PM EDT ECHOCARDIOGRAM TRANSTHORACIC [...] CAD (coronary artery disease), non-obstructive CARDIAC ENZYMES ([facility]) STAT 06/03/2012 4:00 PM EDT CARDIAC CATHETERIZATION 06/03/20 12 2:02 PM EDT CP POCT GLUCOSE Routine 06/03/2012 11:11 AM EDT documented in this encounter Results * Cardiac Catheterization (06/07/2012 2:15 PM EDT) Anatomical Region Laterality Modality Other Narrative 06/03/2012 4:39 PM EDT Procedure Note Provider, Scanning - 06/03/2012 4:39 PM EDT Kathie Cotter MD CARDIAC CATH ORDERAB LES * SCAN DOC: SIGNAL PERSON (06/04/2012 10:04 PM EDT) Anatomical Region Laterality Modality Other Narrative 06/06/2012 2:36 AM EDT Procedure Note Provider, Scanning - 06/04/2012 10:04 PM EDT Scanning Provider MEDIA MGR SCAN EXT O RDR/RSLT * Echo Transthoracic (Complete) (06/04/2012 8:57 AM EDT) [facility] EF 60 HEARTE[address] Square Feet SYSTEM Anatomical Region Laterality Modality Other 06/04/2012 Narrative 06/04/2012 9:13 AM EDT Procedure: ? Transthoracic Echocardiogram Patient: ? LAQUITA Pop ?(Age): 1965(46) Med Rec#: ?[id number] ? Sex: ?M ? Site Loc: ?[facility] ? Ht / Wt: ??176(cm)/122(kg) Pt. Loc: ? Adult Floor ?BSA: ?2.44 Study Date: ?06/04/2012 ? Pt. Type: Inpatient Tape: ? Referring: Kathie Cotter Head Bander And Liner Operator: Khoi Gaines [facility] Head Bander And Liner Operator 2: Mason Duron ([id number]) Diagnosis: ??Chest pain (786.50) CPT Code(s): ??Echo Full (31164), ??Spectral Doppler (70627), ??Color Doppler (61437), ??Definity (31604RT), Indication(s): ??Chest Pain Rhythm: HR ?BP 78 [...] ? Mid-Inferior ?Normal ? Mid-Inferoseptal ?Normal ? [place]-Septal ? Normal ? [place]-Anterior ? Normal ? [place]-Lateral ?Normal ? [place]-Inferior ? Normal ? [place]-Tip ?Normal ? Chambers ?Value ?Units (Range) ? [...] 06/04/2012 09:12:51 Images reviewed and interpretation verified [facility] Cardiac Ultrasound Laboratory Procedure Note Christos Buchanan MD - 06/04/2012 Procedure: Transthoracic Echocardiogram Patient: LAQUITA Pop (Age): 1965(46) Med Rec#: [id number] Sex: M Site Loc: [facility] Ht / Wt: 176(cm)/122(kg) Pt. Loc: Adult Floor BSA: 2.44 Study Date: 06/04/2012 Pt. Type: Inpatient Tape: Referring: Kathie Cotter Head Bander And Liner Operator: Khoi Gaines [facility] Head Bander And Liner Operator 2: Mason Duron ([id number]) Diagnosis: Chest pain (786.50) CPT Code(s): Echo Full (33891), Spectral Doppler (94425), Color Doppler (28646), Definity (64351MO), Indication(s): Chest Pain Rhythm: HR BP 78 [...] Normal Mid-Posterolateral Normal Mid-Inferior Normal Mid-Inferoseptal Normal [place]-Septal Normal [place]-Anterior Normal [place]-Lateral Normal [place]-Inferior Normal [place]-Tip Normal Chambers Value Units (Range) LV EF [...] 06/04/2012 09:12:51 Images reviewed and interpretation verified [facility] Cardiac Ultrasound Laboratory Kathie Cotter MD ECHO ORDERABLES * POCT GLUCOSE (06/04/2012 7:06 AM EDT) Pathologist [facility] Glucose, POC 183 60 - 199 mg/dL [facility] Comment: Supplemental ranges: <110 mg/dL before meals <200 mg/dL all other times of the day Blood specimen (specimen) 06/04/2012 7:06 AM EDT 06/04/2012 7:06 AM EDT Kathie Cotter MD POINT OF CARE TEST O RDERABLES Performing Organization Address City/[facility]/ZIP Co de Phone Number [facility] * EKG 12-LEAD (06/04/2012 6:07 AM EDT) Ventricular rate 77 BPM MUSE SYSTEM Atrial Rate 77 BPM MUSE SYSTEM P-R Interval 150 ms MUSE SYSTEM QRS Duration 92 ms MUSE SYSTEM Q-T Interval 372 ms MUSE SYSTEM QTC Calculated (Bezet) 420 ms MUSE SYSTEM Calculated P [place] 30 degrees MUSE SYSTEM Calculated R [place] 37 degrees MUSE SYSTEM Calculated T [place] 30 degrees MUSE SYSTEM INTERPRETATION Normal sinus rhythm Normal ECG When compared with ECG of 03-JUN-2012 16:38, No significant change was found Confirmed by MD Mirtha, Cali ([id number]) on 06/04/2012 1:38:26 PM MUSE SYSTEM 06/04/2012 6:07 AM EDT 06/04/2012 1:38 PM EDT Unknown ECG ORDERABLES Performing Organization Address City/[facility]/ZIP Co de Phone Number MUSE SYSTEM * (ABNORMAL) BMP w/fasting Glucose (06/04/2012 6:05 AM EDT) [facility] Glucose Fasting 185(H) 65 - 99 [...] of Diabetes Mellitus, Position Statement from the [place] Diabetes Association. ??Diabetes Care, Volume 33, Supplement 1, Aug 2009 Blood Urea Nitrogen 10 10 - 20 mg/dL [facility] Creatinine 0.82 0.80 - 1.50 mg/dL [facility] Comment: Please note that the pediatric reference intervals supplied above were not validated at [facility]. Results from pediatric patients should be interpreted [...] Cotter MD CHEMISTRY ORDERABLES [facility] * (ABNORMAL) LDL CHOLESTEROL, DIRECT (06/04/2012 4:45 AM EDT) LDL Cholesterol, Direct 108(H) <=99 mg/dL [facility] Comment: The National Cholesterol Education Program (NCEP) has set the following guidelines for LDL Cholesterol: Reference range: ?? Optimal: ?<100 mg/dL ?? Near Optimal/Above Optimal: ?? 100-129 mg/dL ?? Borderline high: ?130-159 mg/dL ?? High: ? 160-189 mg/dL ?? Very high: ?>df=419 mg/dL RACHEL 2001: 285(19):1724-9755 Blood specimen (specimen) 06/04/2012 4:45 AM EDT [...] Gran Absolute 0.02 0.00 - 0.05 x10(3)/mcL [facility] Blood specimen (specimen) 06/04/2012 4:45 AM EDT 06/04/2012 4:55 AM EDT Kathie Cotter MD HEMATOLOGY ORDERABLE S Performing Organization Address [facility] de Phone Number [facility] * Alkaline Phosphatase (06/04/2012 4:45 AM EDT) Alkaline Phosphatase 53 40 - 120 unit/L [facility] Blood specimen (specimen) 06/04/2012 4:45 AM EDT 06/04/2012 4:55 AM EDT Narrative Resulting Agency Comment Spec In Lab Kathie Cotter MD CHEMISTRY ORDERABLES Performing Organization Address [facility] de Phone Number [facility] * Alanine Aminotransferase (06/04/2012 4:45 AM EDT) Alanine Aminotransferase 31 0 - 55 unit/L [facility] Blood specimen (specimen) 06/04/2012 4:45 AM EDT 06/04/2012 4:55 AM EDT Narrative Resulting Agency Comment Spec In Lab Kathie Cotter MD CHEMISTRY ORDERABLES Performing Organization Address [facility] Co de Phone Number [facility] * Aspartate Aminotransferase (06/04/2012 4:45 AM EDT) Aspartate Aminotransferase 31 0 - 39 unit/L [facility] Blood specimen (specimen) 06/04/2012 4:45 AM EDT 06/04/2012 4:55 AM EDT Narrative Resulting Agency Comment Spec In Lab Kathie Cotter MD CHEMISTRY ORDERABLES Performing Organization Address [facility] de Phone Number [facility] * (ABNORMAL) Hemoglobin A1c (06/04/2012 4:45 AM EDT) [facility] Hemoglobin A1c 6.5(H) 4.3 - 6.1 % [facility] Estimated Average Glucose 140 mg/dL [facility] Comment: eAG equivalents for HbA1c percentages: [...] into estimated average glucose values. ??Diabetes Care 2008:31(8):2352-2967. Blood specimen (specimen) 06/04/2012 4:45 AM EDT 06/04/2012 4:55 AM EDT Narrative Resulting Agency Comment Spec In Lab Kathie Cotter MD CHEMISTRY ORDERABLES Performing Organization Address [facility] Co de Phone Number [facility] * (ABNORMAL) Lipid panel (fasting) (06/04/2012 4:45 AM EDT) [facility] Cholesterol, Total 186 <=199 mg/dL [facility] Comment: Recommendations of the NCEP Adult Treatment Panel for the following risk cutoff thresholds for the [place] population: Desirable: <200 mg/dL Borderline High: 200-239 mg/dL High: > or = 240 mg/dL Triglyceride 412(H) <=149 mg/dL [facility] Comment: Reference Range: Normal triglycerides: ??<150 mg/dL Borderline high: ??150-199 mg/dL High: ??200-499 mg/dL Very high: ??>vp=952 mg/dL RACHEL 2001; 285(19):3869-5324 HDL Cholesterol 25(L) >=40 mg/dL [facility] Comment: Reference range: ??Low HDL: ?? < 40 mg/dL ??Normal: ?40-60 mg/dL ??Desirable: > 60 mg/dL RACHEL 2001; 285(19):8405-5275 LDL Cholesterol Not Calculated <=99 mg/dL [facility] Comment: Since a calculated LDL value is not valid for triglycerides greater than 400 mg/dl, a direct LDL determination is performed instead. Reference range: ?? Optimal: ?<100 mg/dL ?? Near Optimal/Above Optimal: ?? 100-129 mg/dL ?? Borderline high: ?130-159 mg/dL ?? High: ? 160-189 mg/dL ?? Very high: ?>zb=153 mg/dL RACHEL 2001: 285(19):3555-6342 Cholesterol/HDL Ratio 7.4 ratio [facility] Comment: A Cholesterol to HDL ratio below 4:1 is desirable. ??Studies suggest that increased CAD risk occurs at ratios above 5 for females and above 6 for men. ? [place] Heart Association ??(http://www.americanheart.org) ? Pallavi Int Med, 1994; 121:641 ? AM J Med, 1998; 105(1A):48S Blood specimen (specimen) 06/04/2012 4:45 AM EDT 06/04/2012 4:55 AM EDT Narrative Resulting Agency Comment Spec In Lab Kathie Cotter MD CHEMISTRY ORDERABLES Performing Organization Address [facility] de Phone Number [facility] * (ABNORMAL) Cardiac Enzymes (06/04/2012 4:45 AM EDT) Troponin-T 0.07(H) <=0.03 ng/mL [facility] Comment: 0.03 ng/mL: Represents the 99th percentile upper reference limit for normals. >0.03 ng/mL: Elevated cardiac troponin T level indicative of myocardial damage. Diagnosis of acute, evolving or recent VA requires a typical rise and gradual fall [...] consensus document of the Joint Society of Cardiology/[place] College of Cardiology Committee for the redefinition of myocardial infarction. Journal of the [place] College of Cardiology 2000; 36: 959-969] Creatine Kinase 150 0 - 200 unit/L [facility] Comment:result rechecked-[facility] Blood specimen (specimen) 06/04/2012 4:45 AM EDT 06/04/2012 4:55 AM EDT Narrative Resulting Agency Comment Spec In Lab Kathie Cotter MD CHEMISTRY ORDERABLES Performing Organization Address [facility] Co de Phone Number [facility] * CBC (with Diff) (06/04/2012 4:45 AM EDT) White Blood Cell 6.4 4.0 - 10.0 x10(3)/mcL [facility] Red Blood Cell 4.78 4.63 - 6.08 x10(6)/mcL [facility] MILLENNIUM Hemoglobin 14.6 13.7 - 17.5 gm/dL [facility] MILLENNIUM Hematocrit 42.7 40.0 - 51.0 % [facility] MILL[facility] Mean Cell Volume 89.3 79.0 - 92.0 fL [facility]ILLH[facility] Mean Cell Hemoglobin 30.5 25.6 - 32.2 pg [facility] Mean Cell Hemoglobin Concentration 34.2 32.0 - 36.5 gm/dL [facility] Platelet 154 145 - 370 x10(3)/mcL [facility] RDW Standard Deviation 41.0 35.0 - 46.0 fL [facility] MILLENNIUM RDW coefficient of variation 12.7 10.9 - 14.4 % [facility] MILLHAVAS[facility]ENTERIUM Mean Platelet Volume 10.1 9.0 - 12.0 fL [facility] Blood specimen (specimen) 06/04/2012 4:45 AM EDT 06/04/2012 4:55 AM EDT Narrative Resulting Agency Comment Spec In Lab Kathie Cotter MD HEMATOLOGY ORDERABLE S Performing Organization Address [facility]/ZIP Co de Phone Number [facility] * POCT GLUCOSE (06/03/2012 9:31 PM EDT) Glucose, POC 163 60 - 199 mg/dL [facility] Comment: Supplemental ranges: <110 mg/dL before meals <200 mg/dL all other times of the day Blood specimen (specimen) 06/03/2012 9:31 PM EDT 06/03/2012 9:31 PM EDT Kathie Cotter MD POINT OF CARE TEST O RDERABLES Performing Organization Address City/[facility]/ZIP Co de Phone Number [facility] * POCT GLUCOSE (06/03/2012 6:10 PM EDT) Glucose, POC 97 60 - 199 mg/dL [facility] Comment: Supplemental ranges: <110 mg/dL before meals <200 mg/dL all other times of the day Blood specimen (specimen) 06/03/2012 6:10 PM EDT 06/03/2012 6:10 PM EDT Kathie Cotter MD POINT OF CARE TEST O RDERABLES Performing Organization Address [facility] de Phone Number [facility] * EKG 12 Lead (06/03/2012 4:38 PM EDT) Pathologist [facility] Ventricular rate 74 BPM MUSE SYSTEM Atrial Rate 74 BPM MUSE SYSTEM P-R Interval 150 ms MUSE SYSTEM QRS Duration 92 ms MUSE SYSTEM Q-T Interval 372 ms MUSE SYSTEM QTC Calculated (Bezet) 412 ms MUSE SYSTEM Calculated P [place] 46 degrees MUSE SYSTEM Calculated R [place] 25 degrees MUSE SYSTEM Calculated T [place] 29 degrees MUSE SYSTEM INTERPRETATION Normal sinus rhythm Normal ECG When compared with ECG of 18-JAN-2010 07:42, No significant change was found Confirmed by MD Mirtha, Cali ([id number]) on 06/04/2012 7:52:23 AM MUSE SYSTEM 06/03/2012 4:38 PM EDT 06/04/2012 7:52 AM EDT Kathie Cotter MD ECG ORDERABLES Performing Organization Address [facility] de Phone Number MUSE SYSTEM * Cardiac Enzymes (06/03/2012 4:00 PM EDT) [facility] Troponin-T <0.03 <=0.03 ng/mL [facility] Comment: 0.03 ng/mL: Represents the 99th percentile upper reference limit for normals. >0.03 ng/mL: Elevated cardiac troponin T level indicative of myocardial damage. Diagnosis of acute, evolving or recent VA requires a typical rise and gradual fall [...] consensus document of the Joint Society of Cardiology/[place] College of Cardiology Committee for the redefinition of myocardial infarction. Journal of the [place] College of Cardiology 2000; 36: 959-969] Creatine Kinase 41 0 - 200 unit/L [facility] Blood specimen (specimen) 06/03/2012 4:00 PM EDT 06/03/2012 4:12 PM EDT Narrative Resulting Agency Comment Spec In Lab Kathie Cotter MD CHEMISTRY ORDERABLES Performing Organization Address City/[facility]/ZIP Co de Phone Number [facility] * POCT GLUCOSE (06/03/2012 11:11 AM EDT) [facility] Glucose, POC 147 60 - 199 mg/dL [facility] Comment: Supplemental ranges: <110 mg/dL before meals <200 mg/dL all other times of the day Blood specimen (specimen) 06/03/2012 11:11 AM EDT 06/03/2012 11:11 AM EDT Kathie Cotter MD POINT OF CARE TEST O RDERABLES Performing Organization Address [facility] Co de Phone Number [facility] documented in this encounter Visit Diagnoses Not on filedocumented in this encounter Administered Medications Inactive Administered Medications - up to 3 most recent administrations Medication Order MAR Action Action Date Dose Rate Site adenosine 90 mg in sodium chloride 0.9% 90 mL infusion (SALOON KEEPER) Intravenous, CONTINUOUS PRN, Starting on Martha 06/03/12 at 1511, Until Martha 06/03/12 at 1734, Cath (Intra-Procedure), Routine New Bag 06/03/2012 3:11 PM EDT 140 mcg/kg/min 933.2 mL/hr aspirin EC tablet 81 mg 81 mg, Oral, DAILY, First dose on Thu06/04/12 at 0900, Until Discontinued, Routine Given 06/04/2012 8:38 AM EDT 81 mg bivalirudin (ANGIOMAX) 250 mg in sodium chloride 0.9% 50 mL infusion (SALOON KEEPER) Intravenous, CONTINUOUS PRN, Starting on Martha 06/03/12 [...] in sodium chloride 0.9% 90 mL infusion (SALOON KEEPER) (CANCELED) Intravenous, CONTINUOUS PRN, Starting on Martha 06/03/12 at 1511, Until Martha 06/03/12 at 1734, Cath (Intra-Procedure), Routine 1511 (New Bag - Provider: Dustin Carlton Jr.)1521 (Stopped - Provider: Tawanda Agarwal, VERO) bivalirudin (ANGIOMAX) 250 mg in sodium chloride 0.9% 50 mL infusion (SALOON KEEPER) (CANCELED) Intravenous, CONTINUOUS PRN, Starting on Martha [...] MD) documented in this encounter Care Teams Mechanical Research Engineer Relationship Specialty Start Date End Date Sarita Lim MD [address] [place] [address] PCP - General 07/16/10 documented as of this encounter
--- OUTSIDE RECORDS SUMMARY | 2024-04-30 18:23 | XMS_ITS | Encounter Summary ---
Author Organization [facility] [place] [address] Care Team Providers Care Cosmetics Supervisor Name Role Phone Coni Lim MD Primary Care Provider [phone] Reason for Visit * Reason Comments Chest Pain Encounter Details Date Type Department Care Team (Late st Contact Info) Description 05/13/2011 11:30 AM EDT Procedure visit [facility] [address] [place] [address] Rafael Nieto Jr., MD [address] [place] [id number] Chest pain (Primary Dx) Social History Tobacco [...] Test- Final Report Romeo Coe : 1965 [facility], [address] [facility] [address] Primary Physician: CONI LIM MD Cc David [...] unspecified documented in this encounter Care Teams Cosmetics Supervisor Relationship Specialty Start Date End Date Coni Lim MD [address] [place] [id number] PCP - General 07/16/10 documented as of this encounter
--- OUTSIDE RECORDS SUMMARY | 2024-04-30 18:24 | XMS_ITS | Encounter Summary ---
Author Organization [facility] Address [address] [place] [address] Care Team Providers Care Electric Golf Cart Repairers Name Role Phone Unavailable Primary Care Provider Unavailabl e Encounter Details Date Type Department Care Team (Late st Contact Info) Description 11/13/2008 Before PRISM Converted Visit (Maple) [facility] - Maple conversion [address] [place] [address] Irving Jha MD [address] [place] [id number] Social History Tobacco Use Types Packs/Day Years [...] SARAVANAN, ROMEO A ? Accession #: ? [id number] ? : ? 1965 (Age: 43) ??M [...] the rectal biopsy (specimen B). ??( ?? Hal)/[facility] ? Document reviewed and electronically signed by: [...] cancer ? Gross Description: ? Received in [facility]'s fixative labelled Romeo Coe and #1 bx ? terminal ileum are three biopsies which vary in size from 0.3 x 0.2 x 0.1 cm up to 0.4 x 0.3 x 0.2 cm. ??The specimen is submitted intact as (A). ? [facility] Romeo Coe and [...] PATHOLOGY ORDERABLE S [facility] [address] [place] [address] documented in this encounter Visit Diagnoses Not on filedocumented in this encounter
--- OUTSIDE RECORDS SUMMARY | 2024-04-30 18:24 | XMS_ITS | Encounter Summary ---
Author Organization [facility] Address [address] [place] [address] Care Team Providers Care Student Support Advisor Name Role Phone Coni Lim MD Primary Care Provider [phone] Reason for Visit * (Routine/Next Available) - Receiving Office to Obtain Authorization Specialty Diagnoses / Procedures Referred By Contsigifredo t Referred To Contact Procedures CT OUTSIDE IMAGES HEAD Unknown, Provider, Referral ID Status Reason Start Date Expiration Date Visits Requested Visits Authorized [id number] Receiving Office to Obtain Authorization 04/07/2023 1 1 Encounter Details Date Type Department Care Team (Latest Contact Info) Description 04/07/2023 20:10 EDT Hospital Encounter [facility] Secondary [place] Discharge Disposition: Home or [...] filedocumented in this encounter Care Teams Student Support Advisor Relationship Specialty Start Date End Date Coni Lim MD [address] [place] [address] PCP - General 12/17/11 documented as of this encounter
--- OUTSIDE RECORDS SUMMARY | 2024-04-30 18:24 | XMS_ITS | Encounter Summary ---
Author Organization [facility] Address [address] [place] [address] Care Team Providers Care Audit Tech Name Role Phone Coni Lim MD Primary Care Provider [phone] Encounter Details Date Type Department Care Team (Late st Contact Info) Description 09/30/2021 Lab Requisition [facility] Pathology & Laboratory Medicine - [facility] [address] [place] [address] Yoon Martinez MD [address] [place] [address] [address] [place], [place] [id number] Encounter for screening for malignant neoplasm of [...] explore management options, if applicable. 10/01/2021 17:48 [facility] Final Diagnosis A. COLON, ASCENDING, POLYPS X5, BIOPSY: - Fragments of tubular adenomas. B. COLON, DESCENDING, POLYP, BIOPSY: - Hyperplastic polyp. C. COLON, SIGMOID, POLYPS X3, BIOPSY: - Hyperplastic polyps. D. RECTUM, POLYP, BIOPSY: - Tubular adenoma. 10/01/2021 17:48 [facility] Attestation By the signature below, the attending physician certifies that they have 1) personally conducted a gross and/or microscopic examination of the described specimen(s), and/or personally interpreted the results of laboratory testing of the described specimen(s), and 2) personally rendered or confirmed the above diagnosis. 10/01/2021 17:48 [facility] at 1748 Clinical History Colon CA screening, family Hx colon CA 10/01/2021 17:48 [facility] Gross Description A. [...] LENORE MACIAS(ASCP) 10/01/2021 7:36 10/01/2021 17:48 EST [facility] Performing Lab [facility] 10/01/2021 17:48 EST [facility] Scanned Images 10/01/2021 17:48 EST [facility] Tissue SPECIMEN FROM RECTUM / Unknown 09/30/2021 12:30 EST 09/30/2021 18:36 EST Tissue specimen (specimen) DESCENDING COLON STRUCTURE / Unknown 09/30/2021 12:30 EST 09/30/2021 18:36 EST Tissue specimen (specimen) SIGMOID COLON STRUCTURE / Unknown 09/30/2021 12:30 EST 09/30/2021 18:36 EST Tissue specimen (specimen) SPECIMEN FROM RECTUM / Unknown 09/30/2021 12:30 EST 09/30/2021 18:36 EST Yoon Martinez MD PATHOLOGY ORDERA AIRAM [facility] [address] [place] [address] documented in this encounter Visit Diagnoses Diagnosis Encounter for screening for malignant neoplasm of colon Special screening for malignant neoplasms, colon documented in this encounter Care Teams Audit Tech Relationship Specialty Start Date End Date Coni Lim MD [address] [place] [address] PCP - General 12/17/11 documented as of this encounter
--- OUTSIDE RECORDS SUMMARY | 2024-04-30 18:24 | XMS_ITS | Encounter Summary ---
Author Organization [facility] Address [address] [place] [address] Care Team Providers Care Tumor Registrar Name Role Phone Coni Lim MD Primary Care Provider [phone] Encounter Details Date Type Department Care Team (Late st Contact Info) Description 01/28/[address] [facility] [phone] Romi Montanez MD [address] [place] [phone] Social History Tobacco Use Types Packs/Day [...] ? ROMEO COE ? Accession #: ? [id number] ? : ? 1965 (Age: 50) ??M [...] Morgan 01/30/2016 9:50 AM End of Report [facility] 01/28/2016 8:56 EDT 01/30/2016 8:56 EDT Romi Montanez MD PATHOLOGY ORDERABL ES [facility] [address] [place] [address] documented in this encounter Visit Diagnoses Not on filedocumented in this encounter Care Teams Tumor Registrar Relationship Specialty Start Date End Date Coni Lim MD [address] [place] [id number] PCP - General 12/17/11 documented as of this encounter
--- OUTSIDE RECORDS SUMMARY | 2024-04-30 18:24 | XMS_ITS | Encounter Summary ---
Author Organization [facility] Address [address] [place] [address] Care Team Providers Care Professor Of Voice Name Role Phone Sarita Lim MD Primary Care Provider [phone] Reason for Referral * Consult (Routine) - Closed Specialty Diagnoses / Procedures Referred By Contac t Referred To Contact Diagnoses S/P coronary artery stent placement Chest pain Kemi Pineda NP [address] [place] [id number] Benjie Leyva MD [address] [place] [id number] Referral ID Status Reason Start Date Expiration Date V isits Requested Visits Authorized [id number] Closed Specialty Services Required 02/23/2014 1 1 Question Answer Reason for Request: chest pain Scheduling Comments (optional ? describe specific scheduling needs if applicable): already scheduled Expected Discharge Date (Inpatient Only): 02/23/2014 Comments Already scheduled with Dr Leyva February at [address] Leyva's telephone number is [phone]. * Consult (Routine) - Closed Specialty Diagnoses / Procedures Referred By Contac t Referred To Contact Diagnoses S/P coronary artery stent placement Chest pain Kemi Pineda NP [address] [place] [phone] Referral ID Status Reason Start Date Expiration Date V isits Requested Visits Authorized [id number] Closed Specialty Services Required 02/22/2014 1 1 Question Answer Reason for Request: chest pain Scheduling Comments (optional ? describe specific scheduling needs if applicable): now, previously requested after 02/15/14 [facility] admission Expected Discharge Date (Inpatient Only): 02/23/2014 Comments Previously requested, please refer to cardiac rehab at [facility] Encounter Details Date Type Department Care Team (Late st Contact Info) Description 02/21/2014 18:30 EDT - 02/23/2014 15:44 EDT Hospital Encounter [facility] Cardiac/Telemetry Unit [address] [place] [address] [phone] Rafy Lopez MD [address] [place] [phone] Jez Ortiz MD [address] [place] [phone] Cali Sage MD [address] [place] [phone] Chest pain (Primary Dx); S/P coronary [...] with PMH of CAD s/p PCI at [facility] in May 2012 and Jul 2013 and admitted at [facility] on 02/15 for USAP and received JACINDA [...] unremitting chest pain and was taken to [facility]. There, troponin and EKG were negative of signs of ischemia. He was started on heparin and nitro gtt and transferred to [facility] for unstable angina. On arrival his chest [...] requested, please refer to cardiac rehab at [facility] Reason for Request: chest pain Expected Discharge Date (Inpatient Only): 02/23/2014 Scheduling Time Frame: now, previously requested after 02/15/14 [facility] admission CONSULT: Consulting provider to render an opinion, attending physician continues to manage the careof the patient. REFERRAL: Care transferred to a second provider who assumes responsibility for all or a portion of the patient's care. FOLLOW UP: Used by a current provider to schedule an outpatient visit within their service or practice. Authorizing Provider: Kemi Pnieda NP Amb Consult/Follow Up Cardiology Already scheduled with Dr Leyva February at [address] Leyva's telephone number is [phone]. Reason for Request: chest pain Expected Discharge [...] the resident's note. Jez Ortiz Jr., MD hand box folder [facility] Pager [phone] documented in this encounter Medications [...] EDT Stress test results reviewed with stress electronic lab technician. Exercised for almost 7 minutes and patient stoppedhis own test secondary to ANDERSON. Experienced minimal chest tightness, = 1, scale 1-10, which resolvedalmost immediately. Stress EKG negative for ischemia. Reviewed with Dr Arechiga. Plan: discharge home on current dose Ranexa with patient instructions forlow exertional level to allow for full effect of Ranexa at 2 weeks. Follow up as scheduled: Dr Leyva [facility], cardiac rehab [facility], tobacco cessation. Tele: NSR 63, no events Exam: CV: S1 S2 no m/r/g Lungs CTA bilaterally Right radial: 2+ no residual ecchymosis or hematoma from 02/15/14 PCI Voiding without difficulty, no dyspepsia Assess: stable for discharge Plan: home today on Ranexa with limited exercise until fully therapeutic Follow up scheduled with Dr Leyva in [facility] Cardiac rehab [facility] Continue smoking cessation D/w Ludwig Tracy and Moo * Alyssa Phan - 02/23/2014 0901 EDT Spoke with Fany at [facility] transport. They will need a call when patient is ready [phone]. After 4:30pm call [phone]. DC note Patient will be discharged without services Stable per team for d/c Medications should be picked up from [facility] outpatient pharmacy prior to ride at 4:00pm [facility] transport will pepper picker patient at 4:00pm in front of the [facility] Alyssa Phan RN CM #[id number] * Kemi Pineda NP - 02/22/2014 1712 [...] with PMH of CAD s/p PCI at [facility] in May 2012 and Jul 2013, [...] POA &/or COLST IN PLACE: No CULTURAL, JEHOVAH'S WITNESS and/or LANGUAGE factors affecting health care/discharge planning:: [...] with transportation. 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 He will have a stress test today. [...] with PMH of CAD s/p PCI at [facility] in May 2012 and Jul 2013, [...] unremitting chest pain and was taken to [facility]. There, troponin and EKG were negative. He was started on heparin and nitro gtt and transferred to [facility] for observation. 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 Living situation: Lives in [place], [place], with . Family History Problem Relation [...] the resident's note. Jez Ortiz Jr., MD hand box folder [facility] Pager [phone] documented in this encounter Procedure Notes * Eagle Fernando RN - 02/23/2014 0832 EDTProcedure(s): EXERCISE TOLERANCE TEST Preliminary Stress Lab [...] Other 03/09/2014 16:1 4 EDT Scan 2 Safety Clothing And Equipment Developer IMG OTHER IMAGING O RDERABLES * ECG REPORT - SCANNED (03/01/2014 15:54 EDT) 03/01/2014 15:5 4 EDT Scan 2 Safety Clothing And Equipment Developer PROCEDURE/MINOR GUSTAVO GICAL ORDERABLES * ECG REPORT - SCANNED (02/27/2014 12:40 EDT) 02/27/2014 12:4 0 EDT Scan 2 Safety Clothing And Equipment Developer PROCEDURE/MINOR GUSTAVO GICAL ORDERABLES * (ABNORMAL) GLUCOSE, GLUCOMETER (02/23/2014 11:41 EDT) Glucose, Fingerstick 185(H) 70 - 100 mg/dl [facility] Lap Machine Operator [place] [id number] [facility] Comment:Test Performed by [facility] 02/23/2014 11:4 1 EDT 02/23/2014 11:42 EDT Jez Ortiz MD CHEMISTRY & BLOOD GA S ORDERABLES Performing Organization Address [facility] de Phone Number [facility] [address] [place] [address] * (ABNORMAL) GLUCOSE, GLUCOMETER (02/23/2014 9:28 EDT) Glucose, Fingerstick 153(H) 70 - 100 mg/dl [facility] Lap Machine Operator ID [id number] [facility] Comment:Test Performed by [facility] 02/23/2014 9:28 EDT 02/23/2014 9:29 EDT Rafy Lopez MD CHEMISTRY & BLOOD GAS ORDERABLES Performing Organization Address [facility] de Phone Number [facility] [address] [place] [address] * EXERCISE TOLERANCE TEST WAVEFORM (02/23/2014 8:44 EDT) Anatomical Region Laterality Modality Other 02/23/2014 8:44 EDT Narrative 02/23/2014 8:46 EDT For report of this Waveform, see associated Image Study. ?[facility] ? Test Date: ?2014-02-23 Pat Name: ? ROMEO PATELONEY ?Department: ?? STRESS ? Room: ? Gender: ? M ?Sorting Machine Attendant: ?[id number] : ?1965 ? Requested By: ROSSANA Tenorio Order Number: [id number] ?Tiarra OG: ? Interpretive Statements Procedure Note 02/23/2014 For report of this Waveform, see associated Image Study. [facility] Test Date: 2014-02-23 Pat Name: ROMEO COELHO Department: STRESS Room: Gender: M Sorting Machine Attendant: [id number] : 1965 Requested By: ROSSANA Tenorio Order Number: [id number] Tiarra MD: Interpretive Statements Jermaine Tracy MD CARDIAC SERVICES OR DERABLES * EXERCISE TOLERANCE TEST (02/23/2014 7:30 EDT) Anatomical Region Laterality Modality Other 02/23/2014 7:30 EDT Narrative 03/03/2014 13:21 EDT *[facility]* [address] [place] [address] *Interpreting Group:* *[facility]* [address] [place] [address] Stress Electrocardiography Supa protocol *PATIENT PRESENTATION* Height: [...] chest pain became unremitting. Pt went to [facility] where EKG negative and troponin negative and reansferred to [facility]. Troponin negative here. Pt is S/P PCI at [facility] May 2012 and Jul 2013. Pt [...] peak heart rate and blood pressure was [id number] Hg/min. ??1 out of 10 stress-induced chest [...] 03/03/2014 *[facility]* [address] [place] [address] *Interpreting Group:* *[facility]* [address] [place] [address] Stress Electrocardiography Supa protocol *PATIENT PRESENTATION* Height: [...] when chest painbecame unremitting. Pt went to [facility] where EKG negative andtroponin negative and reansferred to [facility]. Troponin negative here. Pt is S/P PCI at [facility] May 2012 and Jul 2013. Pt admitted 02/15 for unstable angina and received to [facility] ot LAD X2. No chest [...] the peak heart rate andblood pressure was 02268lv Hg/min. 1 out of 10 stress-induced chest [...] of this study wasinterpreted by Dr. Keo Steeel. Electronically signed by Keo Mcginnis MD 03/03/2014 13:21 Jermaine Tracy MD CARDIAC SERVICES OR DERABLES * (ABNORMAL) GLUCOSE, GLUCOMETER (02/23/2014 6:40 EDT) Glucose, Fingerstick 137(H) 70 - 100 mg/dl [facility] Lap Machine Operator ID [id number] [facility] Comment:Test Performed by [facility] 02/23/2014 6:40 EDT 02/23/2014 6:44 EDT Rafy Lopez MD CHEMISTRY & BLOOD GAS ORDERABLES [facility] [address] [place] [address] * HEMAGRAM (02/23/2014 5:33 EDT) WBC 8.20 [...] & PF4 ORD ERABLES Performing Organization Address City/[facility] Co de Phone Number [facility] [address] [place] [address] * CREATININE (02/23/2014 5:33 EDT) Creatinine 0.76 0.66 - 1.25 mg/dl [facility] GFR, Calculated >60 >60 ml/min/1.7 3m2 [facility] 02/23/2014 5:33 EDT 02/23/2014 5:45 EDT Endy Mack MD CHEMISTRY & BLOOD GA S ORDERABLES Performing Organization Address [facility] Co de Phone Number [facility] [address] [place] [address] * (ABNORMAL) BUN (02/23/2014 5:33 EDT) BUN 9(L) 10 - 26 mg/dl [facility] 02/23/2014 5:33 EDT 02/23/2014 5:45 EDT Endy Mack MD CHEMISTRY & BLOOD GA S ORDERABLES Performing Organization Address [facility]/ZIP Co de Phone Number [facility] [address] [place] [address] * ELECTROLYTES (02/23/2014 5:33 EDT) Sodium 141 136 - 145 mEq/L [facility] Potassium 4.0 3.5 - 5.0 mEq/L [facility] Chloride 106 96 - 110 mEq/L [facility] CO2 24 24 - 32 mEq/L [facility] 02/23/2014 5:33 EDT 02/23/2014 5:45 EDT Endy Mack MD CHEMISTRY & BLOOD GA S ORDERABLES Performing Organization Address [facility] Co de Phone Number [facility] [address] [place] [address] * (ABNORMAL) PTT (02/23/2014 5:33 EDT) PTT 73(H) 26 - 37 secs [facility] Comment:Therapeutic Heparin range: 65-100 seconds Blood specimen (specimen) 02/23/2014 5:33 EDT 02/23/2014 5:45 EDT Jermaine Tracy MD HEMATOLOGY & PF4 OR DERABLES Performing Organization Address [facility] de Phone Number [facility] [address] [place] [address] * (ABNORMAL) GLUCOSE, GLUCOMETER (02/22/2014 20:43 EDT) Glucose, Fingerstick 110(H) 70 - 100 mg/dl [facility] Lap Machine Operator ID [id number] [facility] Comment:Test Performed by [facility] 02/22/2014 20:4 3 EDT 02/22/2014 20:49 EDT Rafy Lopez MD CHEMISTRY & BLOOD GAS ORDERABLES Performing Organization Address [facility] Co de Phone Number [facility] [address] [place] [address] * INPATIENT ADD-ON (02/22/2014 19:20 EDT) Tests to be added PLEASE ADD JUAN DIEGO CARTAGENA TO PREVIOUS TESTING [facility] Comment: THANK YOU CKMB Number for problems [id number] [facility] Accession number [id number] [facility] 02/22/2014 19:2 0 EDT 02/22/2014 19:23 EDT Rafy Lopez MD HEMATOLOGY & PF4 ORDERABLES Performing Organization Address [facility] de Phone Number [facility] [address] [place] [address] * CK MB WITH TOTAL CK (02/22/2014 17:21 EDT) CK 40 0 - 250 U/L [facility] MB <0.22 <4.21 ng/ml [facility] 02/22/2014 17:2 1 EDT 02/22/2014 17:32 EDT Jermaine Tracy MD CHEMISTRY & BLOOD G ORDERABLES Performing Organization Address [facility] de Phone Number [facility] [address] [place] [address] * TROPONIN I (02/22/2014 17:21 EDT) Troponin I (ng/mL) <0.034 <0.034 ng/ml [facility] Blood specimen (specimen) 02/22/2014 17:21 EDT 02/22/2014 17:32 EDT Jermaine Tracy MD CHEMISTRY & BLOOD G ORDERABLES Performing Organization Address [facility] de Phone Number [facility] [address] [place] [address] * (ABNORMAL) GLUCOSE, GLUCOMETER (02/22/2014 16:32 EDT) Glucose, Fingerstick 144(H) 70 - 100 mg/dl [facility] Lap Machine Operator ID [id number] [facility] Comment:[facility] 02/22/2014 16:3 2 EDT 02/22/2014 16:36 EDT Rafy Lopez MD CHEMISTRY & BLOOD GAS ORDERABLES Performing Organization Address [facility] de Phone Number [facility] [address] [place] [address] * (ABNORMAL) GLUCOSE, GLUCOMETER (02/22/2014 11:15 EDT) Glucose, Fingerstick 102(H) 70 - 100 mg/dl [facility] Lap Machine Operator ID [id number] [facility] Comment:Test Performed by [facility] 02/22/2014 11:1 5 EDT 02/22/2014 11:23 EDT Rafy Lopez MD CHEMISTRY & BLOOD GAS ORDERABLES Performing Organization Address [facility] de Phone Number [facility] [address] [place] [address] * CK MB WITH TOTAL CK (02/22/2014 [...] & BLOOD G ORDERABLES Performing Organization Address [facility] de Phone Number [facility] [address] [place] [address] * TROPONIN I (02/22/2014 10:04 EDT) Troponin I (ng/mL) <0.034 <0.034 ng/ml [facility] Comment: Slight hemolysis Results may be affected due to hemolysis. Blood specimen (specimen) 02/22/2014 10:04 EDT 02/22/2014 10:22 EDT Jermaine Tracy MD CHEMISTRY & BLOOD G ORDERABLES Performing Organization Address [facility]/ZIP Co de Phone Number [facility] [address] [place] [address] * (ABNORMAL) GLUCOSE, GLUCOMETER (02/22/2014 6:30 EDT) Glucose, Fingerstick 131(H) 70 - 100 mg/dl [facility] Lap Machine Operator ID [id number] [facility] Comment:Test Performed by [facility] 02/22/2014 6:30 EDT 02/22/2014 6:45 EDT Rafy Lopez MD CHEMISTRY & BLOOD GAS ORDERABLES Performing Organization Address [facility] de Phone Number [facility] [address] [place] [address] * HEMAGRAM (02/22/2014 6:19 EDT) WBC 8.93 4.0 - 10.4 K/cmm [facility] RBC 4.94 4.36 - 5.78 M/cmm [facility] Hemoglobin 14.6 13.8 - 17.3 gm/dl [facility] HCT 42.7 39.5 - 50.2 % [facility] MCV 86 81 - 95 fl [facility] MCH 29.6 27.6 - 33.0 pg [place] [facility] MCHC 34.3 32.8 - 36.4 gm/dl [facility] PLT 177 141 - 320 K/cmm [facility] RDW-CV 14.1 11.8 - 14.1 % [facility] 02/22/2014 6:19 EDT 02/22/2014 6:41 EDT Endy Mack MD HEMATOLOGY & PF4 ORD ERABLES Performing Organization Address [facility] Co de Phone Number [facility] [address] [place] [address] * CREATININE (02/22/2014 6:19 EDT) Creatinine 0.80 0.66 - 1.25 mg/dl [facility] GFR, Calculated >60 >60 ml/min/1.7 3m2 [facility] 02/22/2014 6:19 EDT 02/22/2014 6:41 EDT Endy Mack MD CHEMISTRY & BLOOD GA S ORDERABLES Performing Organization Address [facility] de Phone Number [facility] [address] [place] [address] * (ABNORMAL) BUN (02/22/2014 6:19 EDT) BUN 9(L) 10 - 26 mg/dl [facility] 02/22/2014 6:19 EDT 02/22/2014 6:41 EDT Endy Mack MD CHEMISTRY & BLOOD GA S ORDERABLES Performing Organization Address [facility] de Phone Number [facility] [address] [place] [address] * ELECTROLYTES (02/22/2014 6:19 EDT) Sodium 143 136 - 145 mEq/L [facility] Potassium 4.0 3.5 - 5.0 mEq/L [facility] Chloride 105 96 - 110 mEq/L [facility] CO2 28 24 - 32 mEq/L [facility] 02/22/2014 6:19 EDT 02/22/2014 6:41 EDT Endy Mack MD CHEMISTRY & BLOOD GA S ORDERABLES Performing Organization Address [facility] de Phone Number [facility] [address] [place] [address] * (ABNORMAL) PTT (02/22/2014 6:19 EDT) PTT 70(H) 26 - 37 secs [facility] Comment:Therapeutic Heparin range: 65-100 seconds Blood specimen (specimen) 02/22/2014 6:19 EDT 02/22/2014 6:41 EDT Jermaine Tracy MD HEMATOLOGY & PF4 OR DERABLES Performing Organization Address [facility]/ZIP Co de Phone Number [facility] [address] [place] [address] * CK MB WITH TOTAL CK (02/22/2014 2:01 EDT) Pathologist [facility] CK 36 0 - 250 U/L [facility] MB <0.22 <4.21 ng/ml [facility] Blood specimen (specimen) 02/22/2014 2:01 EDT 02/22/2014 2:06 EDT Jermaine Tracy MD CHEMISTRY & BLOOD G ORDERABLES Performing Organization Address [facility] de Phone Number [facility] [address] [place] [address] * (ABNORMAL) PTT (02/22/2014 2:01 EDT) [facility] PTT 71(H) 26 - 37 secs [facility] Comment:Therapeutic Heparin range: 65-100 seconds Blood specimen (specimen) 02/22/2014 2:01 EDT 02/22/2014 2:06 EDT Jermaine Tracy MD HEMATOLOGY & PF4 OR DERABLES Performing Organization Address [facility] de Phone Number [facility] [address] [place] [address] * TROPONIN I (02/22/2014 2:01 EDT) [facility] Troponin I (ng/mL) <0.034 <0.034 ng/ml [facility] Blood specimen (specimen) 02/22/2014 2:01 EDT 02/22/2014 2:06 EDT Jermaine Tracy MD CHEMISTRY & BLOOD G ORDERABLES Performing Organization Address [facility] de Phone Number [facility] [address] [place] [address] * GLUCOSE, GLUCOMETER (02/21/2014 22:06 EDT) Pathologist [facility] Glucose, Fingerstick 86 70 - 100 mg/dl [facility] Lap Machine Operator ID [id number] [facility] Comment:Test Performed by [facility] 02/21/2014 22:0 6 EDT 02/21/2014 22:19 EDT Rafy Lopez MD CHEMISTRY & BLOOD GAS ORDERABLES Performing Organization Address [facility] de Phone Number [facility] [address] [place] [address] * (ABNORMAL) PTT (02/21/2014 21:36 EDT) PTT 64(H) 26 - 37 secs [facility] Comment:Therapeutic Heparin range: 65-100 seconds Blood specimen (specimen) 02/21/2014 21:36 EDT 02/21/2014 21:43 EDT Jermaine Tracy MD HEMATOLOGY & PF4 OR DERABLES Performing Organization Address [facility] de Phone Number [facility] [address] [place] [address] * GLUCOSE, GLUCOMETER (02/21/2014 19:54 EDT) Glucose, Fingerstick 72 70 - 100 mg/dl [facility] Lap Machine Operator ID [id number] [facility] Comment:Test Performed by [facility] 02/21/2014 19:5 4 EDT 02/21/2014 19:56 EDT Rafy Lopez MD CHEMISTRY & BLOOD GAS ORDERABLES Performing Organization Address [facility] de Phone Number [facility] [address] [place] [address] * CREATININE (02/21/2014 19:08 EDT) Creatinine 0.72 0.66 - 1.25 mg/dl [facility] GFR, Calculated >60 >60 ml/min/1.7 3m2 [facility] Blood specimen (specimen) 02/21/2014 19:08 EDT 02/21/2014 19:19 EDT Jermaine Tracy MD CHEMISTRY & BLOOD G ORDERABLES Performing Organization Address [facility] Co de Phone Number [facility] [address] [place] [address] * (ABNORMAL) BUN (02/21/2014 19:08 EDT) BUN 8(L) 10 - 26 mg/dl [facility] Blood specimen (specimen) 02/21/2014 19:08 EDT 02/21/2014 19:19 EDT Jermaine Tracy MD CHEMISTRY & BLOOD G ORDERABLES Performing Organization Address [facility] de Phone Number [facility] [address] [place] [address] * (ABNORMAL) HEMAGRAM (02/21/2014 19:08 EDT) WBC [...] & PF4 OR DERABLES Performing Organization Address City/[facility] Co de Phone Number [facility] [address] [place] [address] * ELECTROLYTES (02/21/2014 19:08 EDT) Sodium 143 136 - 145 mEq/L [facility] Potassium 3.9 3.5 - 5.0 mEq/L [facility] Chloride 106 96 - 110 mEq/L [facility] CO2 25 24 - 32 mEq/L [facility] Blood specimen (specimen) 02/21/2014 19:08 EDT 02/21/2014 19:19 EDT Jermaine Tracy MD CHEMISTRY & BLOOD G ORDERABLES Performing Organization Address [facility] de Phone Number [facility] [address] [place] [address] * CK MB WITH TOTAL CK (02/21/2014 19:08 EDT) CK 38 0 - 250 U/L [facility] MB <0.22 <4.21 ng/ml [facility] Blood specimen (specimen) 02/21/2014 19:08 EDT 02/21/2014 19:19 EDT Jermaine Tracy MD CHEMISTRY & BLOOD G ORDERABLES Performing Organization Address [facility] de Phone Number [facility] [address] [place] [address] * TROPONIN I (02/21/2014 19:08 EDT) Troponin I (ng/mL) <0.034 <0.034 ng/ml [facility] Blood specimen (specimen) 02/21/2014 19:08 EDT 02/21/2014 19:19 EDT Jermaine Tracy MD CHEMISTRY & BLOOD G ORDERABLES Performing Organization Address [facility] Phone Number [facility] [address] [place] [address] * EKG 12-LEAD (02/21/2014 18:59 EDT) 02/21/2014 18:5 9 EDT Narrative [facility] EKG - 02/22/2014 16:34 EDT ?[facility] ? Test Date: ?2014-02-21 Pat Name: ? ROMEO COELHO ?Department: ?? [facility] ? Room: ? ME506 Gender: ? M ?Sorting Machine Attendant: ?? [id number] : ?1965 ? Requested By: JERMAINE TRACY MD Order Number: [id number] ? Reading MD: ?? TUYET ADES MD ? Measurements Intervals ?[place] ? Rate: ? 63 ? P: ?10 AR: ? 155 ?QRS: ?15 QRSD: ? 101 [...] Date: 2014-02-21 Pat Name: ROMEO COELHO Department: [place] [address] Room: [facility] Gender: M Sorting Machine Attendant: [id number] : 1965 Requested By: JERMAINE TRACY MD Order Number: [id number] Reading MD: TUYET CASTRO MD Measurements Intervals [place] Rate: 63 P: 10 AR: 155 QRS: 15 QRSD: 101 T: 29 [...] encounter Visit Diagnoses Diagnosis Unstable angina ([facility])- Primary Intermediate coronary syndrome Chest pain Chest pain, unspecified S/P coronary artery stent placement Postsurgical percutaneous transluminal coronary angioplasty status CAD (coronary artery disease) Coronary atherosclerosis of unspecified type of vessel, takotna or graft CAD (coronary artery disease) Coronary atherosclerosis of unspecified type of vessel, takotna or graft documented in this encounter Administered [...] 09/2013 documented in this encounter Care Teams Professor Of Voice Relationship Specialty Start Date End Date Sarita Lim MD [address] [place] [address] PCP - General 12/17/11 documented as of this encounter
--- OUTSIDE RECORDS SUMMARY | 2024-04-30 18:24 | XMS_ITS | Encounter Summary ---
Author Organization [facility] Address [address] [place] [address] Care Team Providers Care Housekeeping And Laundry Team Leader Name Role Phone Coni Lim MD Primary Care Provider [phone] Encounter Details Date Type Department Care Team (Late st Contact Info) Description 01/14/2022 Lab Requisition [facility] Pathology & Laboratory Medicine - [facility] [address] [place] [address] Kevin Landaverde MD [address] [place] [address] [phone] Encounter for other general examination Social History [...] Name Priority Date/Time Associated Diagnosis Comments NON PRODUCT TRAINER/FNA CYTOLOGY Today 01/13/2022 8:35 EDT Encounter for other general examination documented in this encounter Results * NON PRODUCT TRAINER/FNA CYTOLOGY (01/13/2022 8:35 EDT) Note to Patient The following pathology results have been interpreted by your pathologist and may be available to you before your health provider has had the opportunity to review them. Please allow time for your provider to receive these results and explore management options, if applicable. 01/15/2022 12:10 [facility] Final Diagnosis THYROID, RIGHT LOBE, NODULE, ULTRASOUND-GUIDE D FINE NEEDLE ASPIRATION: - Non-diagnostic aspirate. See comment. 01/15/2022 12:10 [facility] Diagnosis Comment Smears are pauci-cellular [...] molecular testing as clinically indicated. 01/15/2022 12:10 [facility] Attestation There was significant resident/fellow involvement in the diagnostic evaluation of this case. By the signature below, the attending physician certifies that they have personally conducted a gross and/or microscopic examination of the described specimens and rendered or confirmed the above diagnosis. 01/15/2022 12:10 [facility] at 1210 Rapid Diagnosis THYROID, [...] by Dr. Melgar assisting Dr. Landaverde at [facility] on 01/13/22. 01/15/2022 12:10 EDT [facility] Clinical History Right thyroid nodule 01/15/2022 12:10 EDT [facility] Gross Description A. 8 fixed prepared slides, 1 air dried prepared slide, and 1 tube of CytoLyt were received and processed by selective cellular enhancement technique. 01/15/2022 12:10 EDT [facility] Resident/Brent w: Daniel Christensen DO 01/15/2022 12:10 EDT [facility] Performing Lab [facility] 01/15/2022 12:10 EDT [facility] Scanned Images 01/15/2022 12:10 EDT [facility] Fine Needle Aspirate ENTIRE RIGHT LOBE OF THYROID GLAND / Unknown 01/13/2022 8:35 EDT 01/14/2022 6:34 EDT Kevin Landaverde MD PATHOLOGY ORDERABLES [facility] [address] [place] [address] documented in this encounter Visit Diagnoses Diagnosis Encounter for other general examination documented in this encounter Care Teams Housekeeping And Laundry Team Leader Relationship Specialty Start Date End Date Coni Lim MD [address] [place] [address] PCP - General 12/17/11 documented as of this encounter
--- OUTSIDE RECORDS SUMMARY | 2024-04-30 18:24 | XMS_ITS | Encounter Summary ---
Author Organization [facility] Address [address] [place] [address] Care Team Providers Care Account Liaison Hospice Name Role Phone Sarita Lim MD Primary Care Provider [phone] Encounter Details Date Type Department Care Team (Latest Contact Info) Description 03/15/2015 1:06 EDT - 03/16/2015 12:40 EDT Hospital Encounter [facility] Medical Intensive Care Unit [address] [place], [place] [id number] Landon Dumont MD [address] [place] [phone] Venu Veliz MD [address] [place] [address] CVA (cerebral vascular accident) ([facility]) ([facility]) (Primary Dx); tPA/rtPA given at another facility [...] Diagnosis: Ischemic stroke Admitted from: Transfer from [facility] Principal/Final Diagnosis: Transient ischemic attack Additional Diagnoses: Hypertension Type 2 diabetes mellitus Hyperlipidemia Coronary artery disease Current tobacco smoking Suspected obstructive sleep apnea Hospital Course: Mr. Coelho is a 49-year-old right-handed male with a history of hypertension, hyperlipidemia, type 2 diabetes mellitus, coronary artery disease, and current tobacco smoking who presented to [facility] with acute onset right face arm and leg weakness after a transesophageal echocardiogram. Given the clinical diagnosis of ischemic stroke with (with a CT head that did notshow any evidence of hemorrhage), he was treated acutely with IV tPA within the time window and transferred to the for post-IV TPA ICU monitoring and care, [...] he previously had cardiac monitoring with his at risk paraprofessional, and has not had atrial fibrillation, so no cardiac monitoring was ordered after discharge. He has a neurologist (Dr. Negron) in [facility], and will be following up there [...] at Discharge: MS: AAOx3, no language impairments card stripper: PERRL, EOMI, sensation intact to light touch [...] at Discharge: Romeo Coelho Home Medication Instructions ANGELA:[id number] Printed on:03/16/15 0844 Medication Information aspirin 325 [...] as important follow-ups were discussed by this radio script writer with the patient on 03/16/2015. Patient [...] with your neurologist (03/21/15), Dr. Negron in [place] - Transient ischemic attack, neuro anatomically localizes [...] Mayorga MD Neurology Resident, PGY-3 Pager # [phone] (Pager [phone] after hours or on weekends) Attestation statement: I saw and examined the patient with the resident/fellow on 03/16/15. I agreewith the findings and plan of care documented in the resident's/fellow's note. The note has been edited prior to signing. Venu Veliz MD MSc Direct Care Staffer [facility] Board certified Adult Neurology Adult Neurology, Neuro-Oncology and Neurophysiology [address] [facility], [address] documented in this encounter Discharge Instructions * Appointments* Antonio Andersen - 03/16/2015 8:56 EDT Please follow-up with Dr. Edel Negron [facility]. [address], [address] [place] [address] Appointment is scheduled for February at 3:00pm Please bring the CD containing imaging studies done while at [facility] documented in this encounter Medications at Time [...] 1238 EDT Discharge Note: arranged transportation with [facility] transportation. They will meat pickler Pt outside [facility] at 12:45. Medicare IM has been signed. Nery Townsend FABRIC STRETCHER #[id number] * Nery Townsend - 03/16/2015 1058 EDT Initial Case Management/Social Work Assessment and Discharge Plan /Readmission Risk Assessment Physician working diagnosis: Mr. Romeo Coelho is a right handed 49 y.o.-ieyf-mnx-yvdb has a pastmedical history of HTN (hypertension); HLD (hyperlipidemia); DMII (diabetes mellitus, type 2); CAD (coronary artery disease); Smoking; Depression; Fibromyalgia; and Gout. Patient (or designee) understanding of admission: Pt understands his admission Patient Contact Information: Pt's contact is his Dasia Coelho (Spouse) [phone] (H) [phone] (W) MEDICAL AND COMMUNITY SERVICES: Primary Care Provider: SARITA LIM MD (General) Specialists seen on a consistent basis: N/A Skilled home care services: N/A DME Provider: N/A Pharmacy: [facility] in [facility] LIVING ARRANGEMENTS AND ACCESSIBILITY ISSUES: Apartment Are there any home access issues? No What in home social supports are available to the patient? Pt has support from his who is homewith Pt as she is also receiving disability. ADVANCED DIRECTIVES, POA &/or COLST IN PLACE: No CULTURAL, CHEONDOISM and/or LANGUAGE factors affecting health care/discharge planning:: [...] Yes,PAL working on arranging transportation for Pt [facility] community transportation out of [facility]. Pt is now ready for DC. Post [...] collins full, visual acuity grossly normal, DERICK card stripper III, IV, : EOMI with smooth pursuit [...] Radiology Imaging: CT head without contrast from [facility] was negative for intracranial hemorrhage MRI [...] right-sided weakness s/p GLENNA procedure at an [facility]. CT from [facility] didn't demonstrate intracranial hemorrhage. Predominant right-sided [...] given disc with imaging done here at [facility] to bring to appointment F/u with primary care provider (Sarita Lim) with particular emphasis on smoking cessation Antonio Andersen, MS III [phone] * Gertrude Linda - 03/16/2015 0901 EDT [facility] Acute Therapies [facility] Occupational Therapy Initial Evaluation/Discontinue Note Date of Service: 03/16/2015 Reason for Referral: Evaluate and treat Precautions: Activity as tolerated, Ambulate and Fall precautions SUBJECTIVE: It feels back to normal-in reference to strength in R-UE. Pain: No pain reported during the interview. OBJECTIVE: Patient Profile: Romeo Coelho is a right hand dominant 49 y.o. male admitted on 03/15/2015 secondary to [facility] ED- STROKE W/LYTICS- TO M4 434.91 CEREBR ART OCCL UNSPEC W INFARCT[ICD-9-CM] The patient lives at [address] [place] [address] History of Present Illness/Injury: Per neuro H&P by Dr. Veliz on 03/15/15: Chief Complaint: Right-sided weakness HPI: Mr. Romeo Coelho is a right handed 49 y.o.-kwuh-hyk-ydnx has a past medical history of HTN (hypertension); HLD (hyperlipidemia); DMII (diabetes mellitus, type 2); CAD (coronary artery disease); Smoking; Depression; Fibromyalgia; and Gout. Patient was transferred to from [facility] after administration of TPAfollowing sudden onset [...] normal tensive, patient was subsequently [facility] for higher level of care after administration [...] GOALS: Short Term Goals: - ?? - Curbstone Setter Goals: - ?? - PLAN: Intervention: Discontinue occupational therapy at The acute care. Further Data: N/a Patient/Family Education: Discharge Planning Role of OT Safety Recommended Discharge Destination: Home with family Recommended Discharge Services: No occupational therapy follow-up services at this time Recommended Discharge Equipment: Patient has all equipment necessary Gertrude Linda OT Student, 03/16/2015, 9:01 COOKIE DAMON OT03/16/201512:46 Pager: [phone] * Venu Veliz MD - 03/15/2015 2915 EDT Neurology Daily Progress Note Admit Date: [...] assessed CN II: visual collins full, PERRL card stripper III, IV, : EOMI with smooth pursuit [...] (will not provide if there is a CHHA hemorrhage). Code Status: Full Dispo: Likely home tomorrow Consults: None Rob Mayorga MD Neurology Resident, PGY-3 Pager # [phone] (Pager [phone] after hours or on weekends) Attestation statement: [...] his MRI today. Venu Veliz MD MSc Direct Care Staffer [facility] Board certified Adult Neurology Adult Neurology, Neuro-Oncology and Neurophysiology [address] [facility], [address] * NicoleduAntonio - 03/15/2015 4458 EDT Neurology Daily Progress Note Admit Date: [...] afternoon following a GLENNA procedure at an [facility]. He was last seen with out deficits at around 3:30pm yesterday following the GLENNA. Two hours later, a nurse noted that he was having right facial droop and he was immediately brought to the ED at [facility] where a stat CT head was performed and did not demonstrate intracranial hemorrhage. He didn't have any contraindications and thus was given tPA and was subsequently transported here to [facility]. He says that he remembers his right [...] He was brought to the ED at [facility] and it was presumed that he [...] visual collins full, visual acuity grossly normal, DERIKC card stripper III, IV, : EOMI with smooth pursuit [...] Radiology Imaging: CT head without contrast from [facility] was negative for intracranial hemorrhage Assessment: Mr. Coelho is a 49yo male with a PMH significant for HTN, HLD, T2DM, CAD, current smoker, and past history of a CVA (2004) and recent TIA who presented with right-sided weakness s/p GLENNA procedure at an [facility]. CT from [facility] didn't demonstrate intracranial hemorrhage. Predominant right-sided motor symptoms suggest lesion in the left posterior limb of internal capsule, likely etiology being microvascular disease due to underlying co-morbidities. Recommendations: CVA (cerebral vascular accident) - presumed microvascular etiology - f/u MRI head this evening around 8pm - continue telemetry monitoring - Q4 stroke neuro vital signs - GLENNA results pending from [facility] - PT/OT to assist with getting [...] Romeo Coelho is a right handed 49 y.o.-mgcd-usm-rwan has a past medical history of HTN (hypertension); HLD (hyperlipidemia); DMII (diabetes mellitus, type 2); CAD (coronary artery disease); Smoking; Depression; Fibromyalgia; and Gout. Patient was transferred to from [facility] after administration of TPAfollowing sudden onset [...] normal tensive, patient was subsequently transferred to [facility] for higher level of care after administration [...] collins full, visual acuity grossly normal, PERRLA card stripper III, IV, : EOMI with smooth pursuit [...] Rehab Code Status: full Elvira Gray MD Neurology Resident PGY-3 Pager # [phone] (# [phone] nights/weekends) 03/15/2015 3:35 Did patient have a stroke or TIA? Yes Type of Stroke Cerebral Infarction Stroke code: No Transfer from outside hospital: Yes Hospital Name: [facility] Initial Contact Time: patient received TPA at 2020 on March 14 On admission to The , NIHSS: NIHSS Testing Interval: 2 hr post [...] during this hospitalization? PT: Yes OT: Yes AGRONOMY LOCATION MANAGER: No; patient returned to prior level of [...] his MRI today. Venu Veliz MD MSc Direct Care Staffer [facility] Board certified Adult Neurology Adult Neurology, Neuro-Oncology and Neurophysiology [address] [facility], [address] documented in this encounter Miscellaneous Notes * [...] stroke. Received TPA prior to transfer to [facility]. A: neuro checks per TPA protocol. R: [...] 8:17 EDT) 03/21/2015 8:17 EDT Scan 2 Admission Liaison PROCEDURE/MINOR GUSTAVO GICAL ORDERABLES * ECG REPORT - SCANNED (03/20/2015 22:44 EDT) 03/20/2015 22:4 4 EDT Scan 2 Admission Liaison PROCEDURE/MINOR GUSTAVO GICAL ORDERABLES * CREATININE (03/16/2015 4:06 EDT) Creatinine 0.77 0.66 - 1.25 mg/dl 03/16/2015 4:50 EDT [facility] GFR, Calculated 108 >60 ml/min/1.7 3m2 03/16/2015 4:50 EDT [facility] Comment: eGFR calculated using CKD-EPI equation for non Americans. Multiply eGFR by 1.16 for Americans. Blood specimen (specimen) BLOOD SPECIMEN / Unknown 03/16/2015 4:06 EDT 03/16/2015 4:18 EDT Rob Mayorga MD CHEMISTRY & BLO OD GAS ORDERABLES [facility] [address] [place] [address] * (ABNORMAL) BUN (03/16/2015 4:06 EDT) BUN 9(L) 10 - 26 mg/dl 03/16/2015 4:50 EDT [facility] Blood specimen (specimen) BLOOD SPECIMEN / Unknown 03/16/2015 4:06 EDT 03/16/2015 4:18 EDT Rob Mayorga MD CHEMISTRY & BLO OD GAS ORDERABLES [facility] [address] [place] [address] * (ABNORMAL) HEMAGRAM AND DIFFERENTIAL (03/16/2015 4:06 EDT) WBC 7.36 4.0 - 10.4 K/cmm 03/16/2015 4:45 [facility] RBC 4.80 4.36 - 5.78 M/cmm 03/16/2015 4:45 [facility] Hemoglobin 14.4 13.8 - 17.3 gm/dl 03/16/2015 4:45 [facility] HCT 42.4 39.5 - 50.2 % 03/16/2015 4:45 [facility] MCV 88 81 - 95 fl 03/16/2015 4:45 [facility] MCH 30.0 27.6 - 33.0 pg 03/16/2015 4:45 [facility] MCHC 34.0 32.8 - 36.4 gm/dl 03/16/2015 4:45 [facility] RDW-CV 13.6 11.8 - 14.1 % 03/16/2015 4:45 [facility] RDW-SD 41.6 36.5 - 45.9 fl 03/16/2015 4:45 [facility] PLT 163 141 - 320 K/cmm 03/16/2015 4:45 [facility] MPV 9.0 7.5 - 11.2 fl 03/16/2015 4:45 [facility] % Neutrophils 43.3(L) 45.5 - 79.7 % 03/16/2015 4:45 [facility] % Lymphocytes 42.5 15.0 - 46.8 % 03/16/2015 4:45 [facility] % Monocytes 7.7 1.8 - 12.0 % 03/16/2015 4:45 [facility] % Eosinophils 5.3 0.6 - 6.9 % 03/16/2015 4:45 [facility] % Basophils 1.2 0.2 - 1.4 % 03/16/2015 4:45 [facility] ABS Neutrophils 3.19 2.20 - 8.85 K/cmm 03/16/2015 4:45 [facility] ABS Lymphs 3.13 1.09 - 3.30 K/cmm 03/16/2015 4:45 [facility] ABS Monocytes 0.57 0.1 - 0.8 K/cmm 03/16/2015 4:45 [facility] ABS Eosinophils 0.39 0.03 - 0.61 K/cmm 03/16/2015 4:45 [facility] ABS Basophils 0.09 0.01 - 0.11 K/cmm 03/16/2015 4:45 [facility] Type of Diff: Automated 03/16/2015 4:45 [facility] Blood specimen (specimen) BLOOD SPECIMEN / Unknown 03/16/2015 4:06 EDT 03/16/2015 4:18 EDT Elvira Gray MD PACKAGES & DNA PROBE ORDERABLES [facility] [address] [place] [address] * ELECTROLYTES (03/16/2015 4:06 EDT) Sodium 145 136 - 145 mEq/L 03/16/2015 4:50 [facility] Potassium 3.9 3.5 - 5.0 mEq/L 03/16/2015 4:50 EDT [facility] Chloride 108 96 - 110 mEq/L 03/16/2015 4:50 EDT [facility] CO2 25 24 - 32 mEq/L 03/16/2015 4:50 EDT [facility] Blood specimen (specimen) BLOOD SPECIMEN / Unknown 03/16/2015 4:06 EDT 03/16/2015 4:18 EDT Elvira Gray MD CHEMISTRY & BLOOD GA S ORDERABLES Performing Organization Address City/[facility]/ZIP Co de Phone Number [facility] [address] [place] [address] * GLUCOSE, GLUCOMETER (03/15/2015 22:45 EDT) Glucose, Fingerstick 91 70 - 100 mg/dl 03/15/2015 22:57 EDT [facility] Care Process Manager ID [id number] 03/15/2015 22:57 EDT [facility] Comment:Test Performed by Nu ing Services BLOOD SPECIMEN / Unknown 03/15/2015 22:45 EDT 03/15/2015 22:57 EDT Landon Dumont MD CHEMISTRY & BLOOD GA S ORDERABLES Performing Organization Address City/[facility] Co de Phone Number [facility] [address] [place] [address] * MR HEAD WO CONTRAST (03/15/2015 21:07 [...] (ng/mL) <0.034 <0.034 ng/ml 03/15/2015 19:54 EDT [facility] Blood specimen (specimen) BLOOD SPECIMEN / Unknown 03/15/2015 18:17 EDT 03/15/2015 19:09 EDT Rob Mayorga MD CHEMISTRY & BLO OD GAS ORDERABLES [facility] [address] [place] [address] * GLUCOSE, GLUCOMETER (03/15/2015 17:19 EDT) Glucose, Fingerstick 100 70 - 100 mg/dl 03/15/2015 17:23 EDT [facility] Care Process Manager ID [id number] 03/15/2015 17:23 EDT [facility] Comment:Test Per[facility] by [facility] BLOOD SPECIMEN / Unknown 03/15/2015 17:19 EDT 03/15/2015 17:23 EDT Landon Dumont MD CHEMISTRY & BLOOD GA S ORDERABLES Performing Organization Address City/[facility]/ZIP Co de Phone Number [facility] [address] [place] [address] * UA REFLEX (03/15/2015 16:16 EDT) UA Billing Microscopic not indicated. 03/15/2015 22:40 EDT [facility] URINE / Unknown 03/15/2015 1 6:16 EDT 03/15/2015 22:24 EDT Landon Dumont MD URINALYSIS ORDERABLE S Performing Organization Address [facility] de Phone Number [facility] [address] [place] [address] * URINALYSIS WITH REFLEX MICROSCOPIC (03/15/2015 16:16 EDT) Color, UA Yellow 03/15/2015 22:40 EDT [facility] Clarity, UA Clear 03/15/2015 22:40 EDT [facility] Glucose, UA Neg Neg 03/15/2015 22:40 EDT [facility] Bilirubin, UA Neg Neg 03/15/2015 22:40 EDT [facility] Ketones, UA Neg Neg 03/15/2015 22:40 EDT [facility] Specific [place], Urine 1.010 1.001 - 1.035 03/15/2015 22:40 T [facility] Blood, UA Neg Neg 03/15/2015 22:40 EDT [facility] pH, UA 6.5 4.6 - 8.0 03/15/2015 22:40 EDT [facility] Protein, UA Neg Neg 03/15/2015 22:40 T [facility] Urobilinogen, UA 0.2 0.2 - 1.0 E.U./dl 03/15/2015 22:40 EDT [facility] Nitrite, UA Neg Neg 03/15/2015 22:40 EDT [facility] Leuk Esterase Neg Neg 03/15/2015 22:40 EDT [facility] URINE / Unknown 03/15/2015 1 6:16 EDT 03/15/2015 22:24 EDT Landon Dumont MD URINALYSIS ORDERABLE S Performing Organization Address [facility] de Phone Number [facility] [address] [place] [address] * URINE CULTURE IF UA POSITIVE - NON POCT URINALYSIS ONLY (03/15/2015 16:16 EDT) Culture if Indicated Culture not indicated by urinalysis results. 03/15/2015 22:49 EDT [facility] TOPOGRAPHY UNKNOWN / Unknown 03/15/2015 16:16 EDT 03/15/2015 22:24 EDT Landon Dumont MD MICROBIOLOGY - GENER AL ORDERABLES Performing Organization Address [facility] de Phone Number [facility] [address] [place] [address] * VL CAROTID/VERTEBRAL DUPLEX BILATERAL (03/15/2015 16:06 EDT) Anatomical Region Laterality Modality Other 03/15/2015 16:0 6 EDT Narrative 03/16/2015 9:40 EDT [facility] [place], [facility], [facility] [address] [place] [address] Technologist: Mono Hernandez IMPRESSIONS 1. 16-49% stenosis [...] homogeneous plaque. Electronically signed by: Satnam Lee [id number] Procedure Note Satnam Lee MD - 03/16/2015 Vascular Diagnostic Laboratory [facility], [facility] [address] [place] [address] Technologist: Mono Hernandez IMPRESSIONS 1. 16-49% stenosis [...] homogeneous plaque. Electronically signed by: Satnam Lee [id number] Rob Mayorga MD [facility] VASCULAR ORDERABLES * CHEST PA AND [...] IMPRESSION: No acute disease. Rob Mayorga MD [facility] DI[facility]NO[facility]IC [facility]AGING ORDERABLES * (ABNORMAL) GLUCOSE, GLUCOMETER (03/15/2015 11:38 EDT) Glucose, Fingerstick 137(H) 70 - 100 mg/dl 03/15/2015 11:40 EDT [facility] Care Process Manager ID [id number] 03/15/2015 11:40 EDT [facility] Comment:Test Performed by Nu ing Services BLOOD SPECIMEN / Unknown 03/15/2015 11:38 EDT 03/15/2015 11:40 EDT Landon Dumont MD CHEMISTRY & BLOOD GA S ORDERABLES [facility] [address] [place] [address] * EKG 12-LEAD (03/15/2015 10:54 EDT) 03/15/2015 10:5 4 EDT Narrative [facility] EKG - 03/19/2015 10:49 EDT ? The ? Test Date: ?2015-03-15 Pat Name: ? ROMEO COELHO ?Department: ?? Roy 4 ? Room: ? M401 Gender: ? M ?Dish Room Worker: ?? [id number] : ?1965 ? Requested By: ALYSSIA Basilio Order Number: [id number] ? Reading : ?? VILMA BENSON MD ? Measurements Intervals ?[place] ? Rate: ? 65 ? P: ?-5 [place]: ? 145 ?QRS: ?24 QRSD: ? 90 ? T: ?30 QT: ? 385 ? QTc: ?403 ? Interpretive Statements SINUS RHYTHM Compared to ECG 02/21/2014 18:59:09 No significant changes I reviewed the tracing and have either agreed or edited the findings in this report. Electronically Signed On 03-19-15 10:49:51 EDT by VILMA BENSON MD. Procedure Note Vilma Benson Jr., MD - 03/19/2015 The Test Date: 2015-03-15 Pat Name: ROMEO COELHO Department: Kirill Gramajo Room: [facility] Gender: M Dish Room Worker: [id number] : 1965 Requested By: ALYSSIA WINSTON Order Number: [id number] Reading MD: VILMA BENSON MD Measurements Intervals [place] Rate: 65 P: -5 OH: 145 QRS: 24 QRSD: 90 T: 30 QT: 385 QTc: 403 Interpretive Statements SINUS RHYTHM Compared to ECG 02/21/2014 18:59:09 No significant changes I reviewed the tracing and have either agreed or edited the findings inthis report. Electronically Signed On 03-19-15 10:49:51 EDT by VILMA LIZAMA. Rob Mayorga MD CARDIAC ECG ORD ERABLES Performing Organization Address City/[facility]/ZIP Co de Phone Number [facility] EKG * TROPONIN I (03/15/2015 10:45 EDT) Troponin I (ng/mL) <0.034 <0.034 ng/ml 03/15/2015 11:31 EDT [facility] Blood specimen (specimen) BLOOD SPECIMEN / Unknown 03/15/2015 10:45 EDT 03/15/2015 11:07 EDT Rob Mayorga MD CHEMISTRY & BLO OD GAS ORDERABLES Performing Organization Address [facility] Co de Phone Number [facility] [address] [place] [address] * (ABNORMAL) GLUCOSE, GLUCOMETER (03/15/2015 7:42 EDT) Pathologist [facility] Glucose, Fingerstick 108(H) 70 - 100 mg/dl 03/15/2015 7:44 EDT [facility] Care Process Manager ID [id number] 03/15/2015 7:44 EDT [facility] Comment:Test [facility] by [facility] BLOOD SPECIMEN / Unknown 03/15/2015 7:42 EDT 03/15/2015 7:44 EDT Landon Dumont MD CHEMISTRY & BLOOD GA S ORDERABLES Performing Organization Address [facility] Co de Phone Number [facility] [address] [place] [address] * MRSA MOLECULAR DETECTION (03/15/2015 6:00 EDT) Result No Staphylococcus aureus detected by PCR. 03/15/2015 9:35 [facility] [facility] Specimen of unknown material (specimen) NASAL ROUTE / Unknown 03/15/2015 6:00 EDT 03/15/2015 7:31 EDT Landon Dumont MD MICROBIOLOGY - GENER AL ORDERABLES [facility] [address] [place] [address] * (ABNORMAL) HEMAGRAM AND DIFFERENTIAL (03/15/2015 1:52 EDT) WBC 8.42 4.0 - 10.4 K/cmm 03/15/2015 3:40 [facility] RBC 4.87 4.36 - 5.78 M/cmm 03/15/2015 3:40 [facility] Hemoglobin 14.5 13.8 - 17.3 gm/dl 03/15/2015 3:40 [facility] HCT 43.2 39.5 - 50.2 % 03/15/2015 3:40 [facility] MCV 89 81 - 95 fl 03/15/2015 3:40 [facility] MCH 29.8 27.6 - 33.0 pg 03/15/2015 3:40 [facility] MCHC 33.6 32.8 - 36.4 gm/dl 03/15/2015 3:40 [facility] RDW-CV 13.7 11.8 - 14.1 % 03/15/2015 3:40 [facility] RDW-SD 42.0 36.5 - 45.9 fl 03/15/2015 3:40 [facility] PLT 151 141 - 320 K/cmm 03/15/2015 3:40 [facility] MPV 8.7 7.5 - 11.2 fl 03/15/2015 3:40 [facility] % Neutrophils 51.2 45.5 - 79.7 % 03/15/2015 3:40 [facility] % Lymphocytes 35.1 15.0 - 46.8 % 03/15/2015 3:40 EDT [facility] % Monocytes 7.4 1.8 - 12.0 % 03/15/2015 3:40 [facility] % Eosinophils 4.4 0.6 - 6.9 % 03/15/2015 3:40 [facility] % Basophils 1.9(H) 0.2 - 1.4 % 03/15/2015 3:40 [facility] ABS Neutrophils 4.31 2.20 - 8.85 K/cmm 03/15/2015 3:40 [facility] ABS Lymphs 2.95 1.09 - 3.30 K/cm 03/15/2015 3:40 [facility] ABS Monocytes 0.63 0.1 - 0.8 K/cm 03/15/2015 3:40 [facility] ABS Eosinophils 0.37 0.03 - 0.61 K/cmm 03/15/2015 3:40 [facility] ABS Basophils 0.16(H) 0.01 - 0.11 K/cmm 03/15/2015 3:40 [facility] Type of Diff: Automated 03/15/2015 3:40 [facility] Blood specimen (specimen) BLOOD SPECIMEN / Unknown 03/15/2015 1:52 EDT 03/15/2015 3:30 EDT Elvira Gray MD PACKAGES & DNA PROBE ORDERABLES Performing Organization Address City/State/[facility] Co de Phone Number [facility] [address] [place] [address] * ELECTROLYTES (03/15/2015 1:52 EDT) Sodium 143 136 - 145 mEq/L 03/15/2015 4:10 [facility] Potassium 3.8 3.5 - 5.0 mEq/L 03/15/2015 4:10 [facility] Chloride 109 96 - 110 mEq/L 03/15/2015 4:10 [facility] CO2 24 24 - 32 mEq/L 03/15/2015 4:10 [facility] Blood specimen (specimen) BLOOD SPECIMEN / Unknown 03/15/2015 1:52 EDT 03/15/2015 3:30 EDT Elvira Gray MD CHEMISTRY & BLOOD GA S ORDERABLES Performing Organization Address [facility] Co de Phone Number [facility] [address] [place] [address] * TSH (03/15/2015 1:52 EDT) TSH 1.97 0.35 - 5.00 uIU/ml 03/15/2015 10:51 EDT [facility] Blood specimen (specimen) BLOOD SPECIMEN / Unknown 03/15/2015 1:52 EDT 03/15/2015 3:30 EDT Elvira Gray MD CHEMISTRY & BLOOD GA S ORDERABLES Performing Organization Address [facility] de Phone Number [facility] [address] [place] [address] * LIPID PROFILE (INCLUDES CHOLESTEROL, TRIGLYCERIDES, HDL, LDL) (03/15/2015 1:52 EDT) Cholesterol 118 mg/dl 03/15/2015 4:10 [facility] Comment: Desirable:<200 Borderline High:200-239 High:>hb=517 Triglycerides 274 mg/dl 03/15/2015 4:10 [facility] Comment: Normal:<150 Borderline High:150-199 High:200-499 Very High:>uw=572 HDL 30 mg/dl 03/15/2015 4:10 [facility] Comment: Low:<40 Normal:40-60 Desirable: >60 LDL, Calculated 33 mg/dl 5 4:10 [facility] Comment: Optimal:<100 Near Optimal:100-129 Borderline High:130-159 High:160-189 Very High:>eg=071 Chol/HDL Ratio 3.9 03/15/2015 4:10 [facility] Fasting? Unknown 03/15/2015 3:30 [facility] Non HDL Cholesterol 88 mg/dl 03/15/2015 4:10 EDT [facility] Comment: Desirable:<130 Borderline:130-159 High: 160-189 Very High: >cr=762 Blood specimen (specimen) BLOOD SPECIMEN / Unknown 03/15/2015 1:52 EDT 03/15/2015 3:30 EDT Elvira Gray MD CHEMISTRY & BLOOD GA S ORDERABLES Performing Organization Address [facility] de Phone Number [facility] [address] [place] [address] * HEMOGLOBIN A1C (03/15/2015 1:52 EDT) Hemoglobin A1C 6.4 % 03/15/2015 9:40 EDT [facility] Comment: Reference Range: <5.7% Normal 5.7-6.4% Increased risk for diabetes =>6.5% Diagnostic for diabetes (if confirmed) The A1c goal for non adults in general is <7%. The A1c goal for selected patients may be significantly lower than 7% if this can be achieved without significant hypoglycemia or other adverse effects of treatment. Est Avg Glucose 137 mg/dl 5 9:40 EDT [facility] Comment: eAG represents the A1c result expressed as average glucose in mg/dl. Blood specimen (specimen) BLOOD SPECIMEN / Unknown 03/15/2015 1:52 EDT 03/15/2015 3:30 EDT Elvira Gray MD CHEMISTRY & BLOOD GA S ORDERABLES Performing Organization Address [facility] de Phone Number [facility] [address] [place] [address] * (ABNORMAL) BUN (03/15/2015 1:52 EDT) BUN 9(L) 10 - 26 mg/dl 03/15/2015 4:10 EDT [facility] Blood specimen (specimen) BLOOD SPECIMEN / Unknown 03/15/2015 1:52 EDT 03/15/2015 3:30 EDT Elvira Gray MD CHEMISTRY & BLOOD GA S ORDERABLES Performing Organization Address [facility] Co de Phone Number [facility] [address] [place] [address] * CREATININE (03/15/2015 1:52 EDT) Creatinine 0.81 0.66 - 1.25 mg/dl 03/15/2015 4:10 EDT [facility] GFR, Calculated 106 >60 ml/min/1.7 3m2 03/15/2015 4:10 EDT [facility] Comment: eGFR calculated using CKD-EPI equation for non Americans. Multiply eGFR by 1.16 for Americans. Blood specimen (specimen) BLOOD SPECIMEN / Unknown 03/15/2015 1:52 EDT 03/15/2015 3:30 EDT Elvira Gray MD CHEMISTRY & BLOOD GA S ORDERABLES Performing Organization Address [facility] Co de Phone Number [facility] [address] [place] [address] * SCREENING GLUCOSE (03/15/2015 1:52 EDT) Glucose, Screening 98 70 - 100 mg/dl 03/15/2015 4:10 EDT [facility] Blood specimen (specimen) BLOOD SPECIMEN / Unknown 03/15/2015 1:52 EDT 03/15/2015 3:30 EDT Elvira Gray MD CHEMISTRY & BLOOD GA S ORDERABLES Performing Organization Address City/[facility] Co de Phone Number [facility] [address] [place] [address] documented in this encounter Visit Diagnoses Diagnosis [...] 02/22 documented in this encounter Care Teams Account Liaison Hospice Relationship Specialty Start Date End Date Sarita Lim MD [address] [place] [address] PCP - General 12/17/11 documented as of this encounter
--- OUTSIDE RECORDS SUMMARY | 2024-04-30 18:24 | XMS_ITS | Encounter Summary ---
Author Organization [facility] Address [address] [place] [address] Care Team Providers Care Referral And Information Aide Name Role Phone Coni Lim MD Primary Care Provider [phone] Encounter Details Date Type Department Care Team (Latest Contact Info) Description 01/28/2016 9:36 EDT - 01/28/2016 23:59 EDT Hospital Encounter [address] [address] Unknown, Provider, Discharge Disposition: Home or Self [...] Code Departure Means Destination Home or Self Usp documented in this encounter Plan of Treatment Not on file documented as of this encounter Visit Diagnoses Not on filedocumented in this encounter Care Teams Referral And Information Aide Relationship Specialty Start Date End Date Coni Lim MD [address] [place] [address] PCP - General 12/17/11 documented as of this encounter
--- OUTSIDE RECORDS SUMMARY | 2024-04-30 18:24 | XMS_ITS | Encounter Summary ---
Author Organization [facility] Address [address] [place] [address] Care Team Providers Care Roustabout Crew Name Role Phone Coni Lim MD Primary Care Provider [phone] Reason for Visit * (Routine/Next Available) - Receiving Office to Obtain Authorization Specialty Diagnoses / Procedures Referred By Contac t Referred To Contact Procedures XR OUTSIDE IMAGES CHEST Unknown, Provider, Referral ID Status Reason Start Date Expiration Date Visits Requested Visits Authorized [id number] Receiving Office to Obtain Authorization 04/07/2023 1 1 Encounter Details Date Type Department Care Team (Latest Contact Info) Description 04/07/2023 20:10 EDT Hospital Encounter [facility] Secondary [...] on filedocumented in this encounter Care Teams [employer]about Crew Relationship Specialty Start Date End Date Coni Lim MD [address] [place] [address] PCP - General 12/17/11 documented as of this encounter
--- OUTSIDE RECORDS SUMMARY | 2024-04-30 18:24 | XMS_ITS | Encounter Summary ---
Author Organization [facility] Address [address] [place] [address] Care Team Providers Care Snubber Name Role Phone Sarita Lim MD Primary Care Provider Reason for Referral * Consult (Routine) - Closed Specialty Diagnoses / Procedures Referred By Contac t Referred To Contact Diagnoses CAD (coronary artery disease) S/P coronary artery stent placement NSTEMI (non-ST elevated myocardial infarction) ([facility]) Kemi Vo NP [address] [address] Benjie Leyva MD [address] [place] [id number] Referral ID Status Reason Start Date Expiration Date V isits Requested Visits Authorized [id number] Closed Specialty Services Required 02/15/2014 1 1 Question Answer Reason for Request: post NSTEMI post pci Scheduling Comments (optional ? describe specific scheduling needs if applicable): 1 month Expected Discharge Date (Inpatient Only): 02/16/2014 Comments Please schedule in [address] Leyva at [facility] Cardiology clinic * Consult (Routine) - Closed Specialty Diagnoses / Procedures Referred By Contac t Referred To Contact Cardiac Rehabilitation Diagnoses CAD (coronary artery disease) S/P coronary artery stent placement NSTEMI (non-ST elevated myocardial infarction) ([facility]) Kemi Vo NP [address] [address] Referral ID Status Reason Start Date Expiration Date V isits Requested Visits Authorized [id number] Closed Specialty Services Required 02/15/2014 1 1 Question Answer Reason for Request: post NSTEMI, CAD, post pci Scheduling Comments (optional ? describe specific scheduling needs if applicable): 1 week Expected Discharge Date (Inpatient Only): 02/16/2014 Comments Please refer to cardiac rehab at [facility] Encounter Details Date Type Department Care Team (Late st Contact Info) Description 02/15/2014 13:04 EDT - 02/16/2014 15:32 EDT Hospital Encounter [facility] Cardiac/Telemetry Unit [address] [place] [address] Mahi Mcginnis MD 111 [facility] [address] [place] [address] Chest pain (Primary Dx); CAD (coronary artery disease); Unstable angina ([facility]); S/P coronary artery stent placement; NSTEMI (non-ST elevated myocardial infarction) ([facility]) Discharge Disposition: Home or Self Care Social [...] hx of of CAD s/p PCI at [facility] in May 2012 and Jul 2013, [...] up was requested with Dr. Leyva at [facility] Cardiology. Clinical Issues Needing Follow-up: None Results [...] Rehabilitation Please refer to cardiac rehab at [facility] Reason for Request: post NSTEMI, CAD, post [...] in [address] Leyva at [facility] Cardiology clinic Reason for Request: post NSTEMI [...] Vo NP Additional Information: Please see your Tax Manager Dr Adithya Leyva in [facility], on February at [address] Leyva's telephone number is [phone]. Follow-Up Labs and Tests: None Sophie Salinas MD 02/16/2014 13:57 ATTENDING Attestation statement: I saw and examined the patient with the resident. I agree with the findings and plan of care documented in the resident's note. Vilma Benson Jr., MD digital commentator [facility] Pager [phone] documented in this encounter Discharge Instructions * Appointments* Mariah Munoz - 02/16/2014 13:41 EDT Please see your Tax Manager Dr Adithya Leyva in [facility], on February at [address] Leyva's telephone number is [phone]. documented in this encounter Medications at Time [...] Notes * Rosario Russo RN - 02/16/2014 1321 EDT D: Patient discharged home per MD. [...] 1045 EDT 02/16: A volunteer drive from [employer] will filler picker patient in main lobby at 3:30. His name is Sal. Patient aware. Katia Nichols RN [facility] #[id number] * Sophie Salinas MD - 02/15/2014 1600 [...] Salinas MD MPH - PGY 2 Pager [phone] 02/15/2014 * Vilma Benson Jr., MD - [...] or concerns. Sincerely, Vilma Benson Jr. MD digital commentator [facility] Pager # [phone] * Katia Nichols, VERO - 02/15/2014 6805 EDT Initial Case Management/Social Work Assessment and [...] POA &/or COLST IN PLACE: No CULTURAL, SPIRITISM and/or LANGUAGE factors affecting health care/discharge planning:: [...] MODERATE RISK: N/A INITIAL TRANSITION PLAN: Plan [facility] today Transportation from hospital in place? Yes,family [...] with hx of CAD s/p PCI at [facility] in May 2012 and Jul 2013, [...] #[id number] * Nathan Tyson MD - 02/14/2014 4830 EDT 48 with PMH of HTN, diabetes, dyslipidemia, smoker, coronary artery disease S/P stents in [facility] May of 2012 in Julyo13 was [...] Notes * Elias Ge MD - 02/14/2014 0498 EDT Internal Medicine Admission H&P Admission Date: 02/14/2014 PCP: SARITA LIM MD CC: chest pain Subjective: HPI: Romeo Coelho is a 48 y.o. year old male with hx of known cad (s/p PCI with 3 stents at [facility]), htn, hld, dmii, who presents with chest [...] clinical course Farhan Alfaro MD Pager # [phone] 02/14/2014 22:33 I have seen and evaluated the patient. I agree with the assessment and plan as outlined above by Dr. Alfaro. Mr. Coelho has known CAD and is s/p PCI at [facility] on at least 2 occassions. He now presents with a clinical history c/w unstable angina. The plan if for [facility] today. The patient is aware and agrees. He also needs risk factor modification - smoking cessation. We emphasized the importance of this AbelrNatalie Coelho. ELIAS GE MD Attending Tax Manager documented in this encounter Procedure Notes * Vilma Benson Jr., MD - 02/15/2014 1204 EDT Images from the original note were not included. Cardiovascular Catheterization Laboratory Preliminary Report -- Catheterization Date of Service/Procedure: 02/15/2014 Attending Physician: Vilma Benson Jr., MD Evaluation Engineer: Kemi Vo NP Pre-Procedure Diagnosis/Indication: Romeo Coelho [...] artery Procedure: He was brought to the [facility] Cardiac Catheterization Laboratory for the procedure: [...] Care - Asad Bauman RN - 02/15/2014 3099 EDT Problem: CIRCULATORY STATUS Goal: Patient Has [...] Care - Gina Mix RN - 02/15/2014 2262 EDT Problem: Acute Ischemic Pain - Cardiac [...] Care - Asad Bauman RN - 02/14/2014 9532 EDT Problem: HOSPITAL ORIENTATION/SAFETY Goal: Oriented To Hospital Environment Outcome: Completed Date Met: 02/14/14 D: Patient arrived to [place] [address]. Vital signs noted, and tele applied. Patient [...] Patient with 0/10 CP. Plan is for [facility] in AM. 0018: Patient states 4/10 SSCP [...] stent placement NSTEMI (non-ST elevated myocardial infarction) ([facility]) Ordered: 02/15/2014 AMB CONS/FOLLOW UP CARDIOLOGY Outpatient Referral Routine CAD (coronary artery disease) S/P coronary artery stent placement NSTEMI (non-ST elevated myocardial infarction) ([facility]) Ordered: 02/15/2014 documented as of this encounter [...] EST) 09/05/2015 10:2 4 EST Scan 2 Door To Door Salesperson PROCEDURE/MINOR GUSTAVO GICAL ORDERABLES * ECG REPORT - SCANNED (02/21/2014 15:36 EDT) 02/21/2014 15:3 6 EDT Scan 2 Door To Door Salesperson PROCEDURE/MINOR GUSTAVO GICAL ORDERABLES * INVASIVE CARDIOLOGY REPORT-SCANNED (02/21/2014 15:36 EDT) 02/21/2014 15:3 6 EDT Scan 2 Door To Door Salesperson PROCEDURE/MINOR GUSTAVO GICAL ORDERABLES * ECG REPORT - SCANNED (02/20/2014 10:15 EDT) 02/20/2014 10:1 5 EDT Scan 2 Door To Door Salesperson PROCEDURE/MINOR GUSTAVO GICAL ORDERABLES * ECG REPORT - SCANNED (02/20/2014 10:03 EDT) 02/20/2014 10:0 3 EDT Scan 2 Door To Door Salesperson PROCEDURE/MINOR GUSTAVO GICAL ORDERABLES * ECG REPORT - SCANNED (02/17/2014 15:12 EDT) 02/17/2014 15:1 2 EDT Scan 2 Door To Door Salesperson PROCEDURE/MINOR GUSTAVO GICAL ORDERABLES * ECG REPORT - SCANNED (02/17/2014 15:10 EDT) 02/17/2014 15:1 0 EDT Scan 2 Door To Door Salesperson PROCEDURE/MINOR GUSTAVO GICAL ORDERABLES * (ABNORMAL) GLUCOSE, GLUCOMETER (02/16/2014 12:01 EDT) Glucose, Fingerstick 133(H) 70 - 100 mg/dl [facility] Federal Mediation Commissioner ID [id number] [facility] Comment:Test Performed by [facility] 02/16/2014 12:0 1 EDT 02/16/2014 12:02 EDT Mahi Mcginnis MD CHEMISTRY & BLOOD G ORDERABLES [facility] [address] [place] [address] * ECHOCARDIOGRAM (02/16/2014 12:00 EDT) Anatomical Region Laterality Modality Other 02/16/2014 12:0 0 EDT Narrative 02/16/2014 12:53 EDT *Interpreting Group:* *[facility]* [address] [place] [address] *STUDY CONCLUSIONS* Summary: 1. Left ventricle: The [...] Mcginnis MD REFERRING ?Sarita Lim PERFORMING ?? [facility], ORDERING ? Sophie Salinas REFERRING ?Sophie Salinas TECHNOLOGY SALES CONSULTANT ??Latoya Murcia *PROCEDURE DATA* Procedure information: ??This study was interpreted by [facility] at [facility]. ??Study status: ??Routine. Transthoracic echocardiography. ??M-mode, [...] 02/16/2014 12:53 Procedure Note 02/16/2014 *Interpreting Group:* *[facility]* [address] [place] [address] *STUDY CONCLUSIONS* Summary: 1. Left ventricle: The cavity size was normal. Wall thickness was normal. Systolic function was normal. The estimated ejection fraction [id number]%. Wall motion was normal; there were no [...] Fa, ORDERING Sophie Salinas REFERRING Sophie Salinas TECHNOLOGY SALES CONSULTANT Latoya Murcia *PROCEDURE DATA* Procedure information: This study was interpreted by [facility]. Study status: Routine.Transthoracic echocardiography. M-mode, complete [...] & PF4 ORD ERABLES Performing Organization Address City/[facility]/ZIP Co de Phone Number [facility] [address] [place] [address] * (ABNORMAL) HEMAGRAM (02/16/2014 5:53 EDT) WBC [...] & PF4 ORD ERABLES Performing Organization Address [facility] Co de Phone Number [facility] [address] [place] [address] * PTT (02/16/2014 5:53 EDT) PTT 30 26 - 37 secs [facility] Comment:Therapeutic Heparin range: 65-100 seconds Blood specimen (specimen) 02/16/2014 5:53 EDT 02/16/2014 5:59 EDT Mahi Mcginnis MD HEMATOLOGY & PF4 OR DERABLES Performing Organization Address City/[facility]/ZIP Co de Phone Number [facility] [address] [place] [address] * CREATININE (02/16/2014 5:53 EDT) Creatinine 0.70 0.66 - 1.25 mg/dl [facility] GFR, Calculated >60 >60 ml/min/1.7 3m2 [facility] Blood specimen (specimen) 02/16/2014 5:53 EDT 02/16/2014 5:59 EDT Farhan Alfaro MD CHEMISTRY & BLOOD GA S ORDERABLES Performing Organization Address [facility] Phone Number [facility] [address] [place] [address] * BUN (02/16/2014 5:53 EDT) BUN 11 10 - 26 mg/dl [facility] Blood specimen (specimen) 02/16/2014 5:53 EDT 02/16/2014 5:59 EDT Farhan Alfaro MD CHEMISTRY & BLOOD GA S ORDERABLES Performing Organization Address [facility] Phone Number [facility] [address] [place] [address] * ELECTROLYTES (02/16/2014 5:53 EDT) Sodium 141 136 - 145 mEq/L [facility] Potassium 4.1 3.5 - 5.0 mEq/L [facility] Chloride 104 96 - 110 mEq/L [facility] CO2 25 24 - 32 mEq/L [facility] Blood specimen (specimen) 02/16/2014 5:53 EDT 02/16/2014 5:59 EDT Farhan Alfaro MD CHEMISTRY & BLOOD GA S ORDERABLES Performing Organization Address [facility] Phone Number [facility] [address] [place] [address] * ALT (02/16/2014 5:53 EDT) ALT 22 21 - 72 U/L [facility] Blood specimen (specimen) 02/16/2014 5:53 EDT 02/16/2014 5:59 EDT Kemi Vo DISTILLATION OPERATOR HELPER CHEMISTRY & BLOOD GA S ORDERABLES Performing Organization Address [facility] Co de Phone Number [facility] [address] [place] [address] * AST (02/16/2014 5:53 EDT) AST 15 15 - 46 U/L [facility] Blood specimen (specimen) 02/16/2014 5:53 EDT 02/16/2014 5:59 EDT Kemi Vo DISTILLATION OPERATOR HELPER CHEMISTRY & BLOOD GA S ORDERABLES Performing Organization Address [facility] de Phone Number [facility] [address] [place] [address] * LIPID PROFILE (INCLUDES CHOLESTEROL, TRIGLYCERIDES, HDL, LDL) (02/16/2014 5:53 EDT) Cholesterol 154 mg/dl [facility] Comment: Desirable:<200 Borderline High:200-239 High:>cz=370 Triglycerides 254 mg/dl [facility] Comment: Normal:<150 Borderline High:150-199 High:200-499 Very High:>mh=146 HDL 37 mg/dl [facility] Comment: Low:<40 Normal:40-60 Desirable: >60 LDL, Calculated 66 mg/dl [facility] Comment: Optimal:<100 Near Optimal:100-129 Borderline High:130-159 High:160-189 Very High:>ey=909 Chol/HDL Ratio 4.2 [facility] Fasting? YES [facility] Non HDL Cholesterol 117 mg/dl [facility] Comment: Desirable:<130 Borderline:130-159 High: 160-189 Very High: >xv=006 Blood specimen (specimen) 02/16/2014 5:53 EDT 02/16/2014 5:59 EDT Kemi Vo DISTILLATION OPERATOR HELPER CHEMISTRY & BLOOD GA S ORDERABLES Performing Organization Address [facility] de Phone Number [facility] [address] [place] [address] * CK MB WITH TOTAL CK (02/16/2014 5:53 EDT) CK 47 0 - 250 U/L [facility] MB 0.54 <4.21 ng/ml [facility] Blood specimen (specimen) 02/16/2014 5:53 EDT 02/16/2014 5:59 EDT Kemi Vo NP CHEMISTRY & BLOOD GA S ORDERABLES Performing Organization Address [facility] Co de Phone Number [facility] [address] [place] [address] * (ABNORMAL) GLUCOSE, GLUCOMETER (02/16/2014 5:51 EDT) Glucose, Fingerstick 105(H) 70 - 100 mg/dl [facility] Federal Mediation Commissioner ID [id number] [facility] Comment:Test Performed by [facility] 02/16/2014 5:51 EDT 02/16/2014 5:52 EDT Mahi Mcginnis MD CHEMISTRY & BLOOD G ORDERABLES Performing Organization Address [facility] Co de Phone Number [facility] [address] [place] [address] * GLUCOSE, GLUCOMETER (02/15/2014 20:41 EDT) Glucose, Fingerstick 78 70 - 100 mg/dl [facility] Federal Mediation Commissioner ID [id number] [facility] Comment:Test Performed by [facility] 02/15/2014 20:4 1 EDT 02/15/2014 20:45 EDT Mahi Mcginnis MD CHEMISTRY & BLOOD G ORDERABLES Performing Organization Address [facility] Co de Phone Number [facility] [address] [place] [address] * (ABNORMAL) GLUCOSE, GLUCOMETER (02/15/2014 16:44 EDT) Glucose, Fingerstick 154(H) 70 - 100 mg/dl [facility] Federal Mediation Commissioner [place] [id number] [facility] Comment:Test Performed by [facility] 02/15/2014 16:4 4 EDT 02/15/2014 16:49 EDT Mahi Mcginnis MD CHEMISTRY & BLOOD G ORDERABLES [facility] [address] [place] [address] * EKG 12-LEAD (02/15/2014 14:19 EDT) 02/15/2014 14:1 9 EDT Narrative [facility] EKG - 02/17/2014 8:24 EDT ?[facility] ? Test Date: ?2014-02-15 Pat Name: ? ROMEO COELHO ?Department: ?? [facility] 5 ? Room: ? ME507 Gender: ? M ?Auto Claim Representative: ?? [id number] : ?1965 ? Requested By: KEMI VO NP Order Number: [id number] ? Reading : ?? VILMA BENSON MD ? Measurements Intervals ?[place] ? Rate: ? 57 ? P: ?-3 [place]: ? 156 ?QRS: ?22 QRSD: ? 103 [...] Date: 2014-02-15 Pat Name: ROMEO COELHO Department: [facility] Gender: M Auto Claim Representative: [id number] : 1965 Requested By: KEMI VO NP Order Number: [id number] Reading MD: VILMA BENSON MD Measurements Intervals [place] Rate: 57 P: -3 [place]: 156 QRS: 22 QRSD: 103 T: 44 QT: 401 QTc: 392 Interpretive Statements SINUS BRADYCARDIA Compared to ECG 02/15/2014 08:43:51 Sinus bradycardia now present I reviewed the tracing and agreed or edited the report. ElectronicallySigned On 02-17-14 08:24:39 EDT by VILMA BENSON MD. Kemi Vo DISTILLATION OPERATOR HELPER CARDIAC ECG ORDERABL ES Performing Organization Address [facility] de Phone Number [facility] EKG * CK MB WITH TOTAL CK (02/15/2014 14:02 EDT) CK 51 0 - 250 U/L [facility] MB <0.22 <4.21 ng/ml [facility] Blood specimen (specimen) 02/15/2014 14:02 EDT 02/15/2014 14:30 EDT Farhan Alfaro MD CHEMISTRY & BLOOD GA S ORDERABLES Performing Organization Address [facility] Phone Number [facility] [address] [place] [address] * (ABNORMAL) GLUCOSE, GLUCOMETER (02/15/2014 12:38 EDT) Glucose, Fingerstick 106(H) 70 - 100 mg/dl [facility] Federal Mediation Commissioner ID [id number] [facility] Comment:Test Performed by [facility] 02/15/2014 12:3 8 EDT 02/15/2014 13:32 EDT Mahi Mcginnis MD CHEMISTRY & BLOOD G ORDERABLES Performing Organization Address [facility] de Phone Number [facility] [address] [place] [address] * LEFT HEART CATH (02/15/2014 10:55 EDT) Anatomical Region Laterality Modality Other 02/15/2014 10:5 5 EDT Narrative 02/15/2014 16:46 EDT Cardiology [address] [place] [address] Catheterization Laboratory Study Patient: Romeo Coelho ? Study Date: ?02/15/2014 ? Accession #: ? [id number] : ? 1965 Diagnostic Attending: ??Vilma Benson [...] artery access. A 6 FR/10 Terumo Sheath [place] SS .021 sheath was ?advanced into the [...] MD 2014-02-15 16:46 Procedure Note 02/15/[address] [place] [address] Catheterization Laboratory Study Patient: Romeo Coelho Study [...] patient's anginal symptoms and an ACC/AHA type K5tngantal risk lesion for intervention, with 2 or [...] artery access. A 6 FR/10 Terumo Sheath [place] SS .021sheath was advanced into the vessel. [...] catheter was exchanged for a 6fr Runway [id number]. 9. Pressure derived flow reserve measurement for [...] with two inflations and a maximum pressure [id number]. STUDY COMPLETION: The estimated blood loss was [...] of 12mcg/min. Fentanyl, for a total dose [id number]. Midazolam, for a total dose of 2mg. Nitroglycerin, for a total dose bs161vvn, into the coronary artery. Contrast: Isovue 370 [...] PF4 OR DERABLES [facility] [address] [place] [address] * EKG 12-LEAD (02/15/2014 8:43 EDT) 02/15/2014 8:43 EDT Narrative [facility] EKG - 02/15/2014 22:25 EDT ?[facility] ? Test Date: ?2014-02-15 Pat Name: ? ROMEO PATELONEY ?Department: ?? Roy 5 ? Room: ? ME507 Gender: ? M ?Auto Claim Representative: ?? [id number] : ?1965 ? Requested By: SOPHIE SALINAS MD Order Number: [id number] ? Reading MD: ?? KATHIE BAORN MD ? Measurements Intervals ?[place] ? Rate: ? 61 ? P: ?-1 [place]: ? 149 ?QRS: ?20 QRSD: ? 98 [...] Date: 2014-02-15 Pat Name: ROMEO COELHO Department: [place] [address] Room: [facility] Gender: M Auto Claim Representative: [id number] : 1965 Requested By: SOPHIE PEREIRA Order Number: [id number] Tiarra MD: KATHIE BARON MD Measurements Intervals [place] Rate: 61 P: -1 [place]: 149 QRS: 20 QRSD: 98 T: 37 [...] 70 - 100 mg/dl [facility] Federal Mediation Commissioner ID [id number] [facility] Comment:Test Performed by [facility] 02/15/2014 6:40 EDT 02/15/2014 6:41 EDT Mahi Mcginnis MD CHEMISTRY & BLOOD G ORDERABLES Performing Organization Address [facility] Co de Phone Number [facility] [address] [place] [address] * (ABNORMAL) DIFFERENTIAL (02/15/2014 5:34 EDT) Pathologist [facility] % Neutrophils 56.9 45.5 - 79.7 % [...] & PF4 ORD ERABLES Performing Organization Address City/[facility] Co de Phone Number [facility] [address] [place] [address] * (ABNORMAL) HEMAGRAM (02/15/2014 5:34 EDT) WBC 10.55(H) 4.0 - 10.4 K/cmm [facility] RBC 5.08 4.36 - 5.78 M/cmm [facility] Hemoglobin 15.1 13.8 - 17.3 gm/dl [facility] HCT 44.5 39.5 - 50.2 % [facility] MCV 88 81 - 95 fl [facility] MCH 29.8 27.6 - 33.0 pg [facility] MCHC 34.0 32.8 - 36.4 gm/dl [facility] PLT 150 141 - 320 K/cmm [facility] RDW-CV 14.5(H) 11.8 - 14.1 % [facility] 02/15/2014 5:34 EDT 02/15/2014 5:53 EDT Farhan Alfaro MD HEMATOLOGY & PF4 ORD ERABLES Performing Organization Address City/[facility] Co de Phone Number [facility] [address] [place] [address] * CREATININE (02/15/2014 5:34 EDT) Pathologist [facility] Creatinine 0.80 0.66 - 1.25 mg/dl [facility] GFR, Calculated >60 >60 ml/min/1.7 3m2 [facility] Blood specimen (specimen) 02/15/2014 5:34 EDT 02/15/2014 5:53 EDT Farhan Alfaro MD CHEMISTRY & BLOOD GA S ORDERABLES Performing Organization Address City/[facility] Co de Phone Number [facility] [address] [place] [address] * BUN (02/15/2014 5:34 EDT) BUN 10 10 - 26 mg/dl [facility] Blood specimen (specimen) 02/15/2014 5:34 EDT 02/15/2014 5:53 EDT Farhan Alfaro MD CHEMISTRY & BLOOD GA S ORDERABLES Performing Organization Address [facility] de Phone Number [facility] [address] [place] [address] * ELECTROLYTES (02/15/2014 5:34 EDT) Sodium 143 136 - 145 mEq/L [facility] Potassium 4.1 3.5 - 5.0 mEq/L [facility] Chloride 107 96 - 110 mEq/L [facility] CO2 25 24 - 32 mEq/L [facility] Blood specimen (specimen) 02/15/2014 5:34 EDT 02/15/2014 5:53 EDT Farhan Alfaro MD CHEMISTRY & BLOOD GA S ORDERABLES Performing Organization Address [facility] de Phone Number [facility] [address] [place] [address] * LIPID PROFILE (INCLUDES CHOLESTEROL, TRIGLYCERIDES, HDL, LDL) (02/15/2014 5:34 EDT) Cholesterol 143 mg/dl [facility] Comment: Desirable:<200 Borderline High:200-239 High:>jn=016 Triglycerides 266 mg/dl [facility] Comment: Normal:<150 Borderline High:150-199 High:200-499 Very High:>mk=194 HDL 39 mg/dl [facility] Comment: Low:<40 Normal:40-60 Desirable: >60 LDL, Calculated 51 mg/dl [facility] Comment: Optimal:<100 Near Optimal:100-129 Borderline High:130-159 High:160-189 Very High:>ra=596 Chol/HDL Ratio 3.7 [facility] Fasting? Unknown [facility] Non HDL Cholesterol 104 mg/dl [facility] Comment: Desirable:<130 Borderline:130-159 High: 160-189 Very High: >xx=863 Blood specimen (specimen) 02/15/2014 5:34 EDT 02/15/2014 5:53 EDT Farhan Alfaro MD CHEMISTRY & BLOOD GA S ORDERABLES Performing Organization Address [facility]/ZIP Co de Phone Number [facility] [address] [place] [address] * TROPONIN I (02/15/2014 5:34 EDT) Pathologist [facility] Troponin I (ng/mL) <0.034 <0.034 ng/ml [facility] Blood specimen (specimen) 02/15/2014 5:34 EDT 02/15/2014 5:53 EDT Farhan Alfaro MD CHEMISTRY & BLOOD GA S ORDERABLES Performing Organization Address [facility] Phone Number [facility] [address] [place] [address] * CK MB WITH TOTAL CK (02/15/2014 5:34 EDT) Pathologist [facility] CK 55 0 - 250 U/L [facility] MB 0.25 <4.21 ng/ml [facility] Blood specimen (specimen) 02/15/2014 5:34 EDT 02/15/2014 5:53 EDT Farhan Alfaro MD CHEMISTRY & BLOOD GA S ORDERABLES Performing Organization Address [facility] Phone Number [facility] [address] [place] [address] * (ABNORMAL) PTT (02/15/2014 1:57 EDT) Pathologist [facility] PTT 48(H) 26 - 37 secs [facility] Comment:Therapeutic Heparin range: 65-100 seconds Blood specimen (specimen) 02/15/2014 1:57 EDT 02/15/2014 2:20 EDT Mahi Mcginnis MD HEMATOLOGY & PF4 OR DERABLES Performing Organization Address [facility] de Phone Number [facility] [address] [place] [address] * EKG 12-LEAD (02/15/2014 0:29 EDT) 02/15/2014 0:29 EDT Narrative [facility] EKG - 02/17/2014 11:31 EDT ?[facility] ? Test Date: ?2014-02-15 Pat Name: ? ROMEO COELHO ?Department: ?? Roy 5 ? Room: ? ME507 Gender: ? M ?Auto Claim Representative: ?? [id number] : ?1965 ? Requested By: MAHI ELENA MD Order Number: [id number] ? Reading MD: ?? ODESSA SANTOS MD ? Measurements Intervals ?[place] ? Rate: ? 61 ? P: ?1 [place]: ? 140 ?QRS: ?44 QRSD: ? 101 [...] Date: 2014-02-15 Pat Name: ROMEO COELHO Department: [place] [address] [place] [facility] Gender: M Auto Claim Representative: [id number] : 1965 Requested By: MAHI ELENA MD Order Number: [id number] Reading MD: ODESSA SANTOS MD Measurements Intervals [place] Rate: 61 P: 1 [place]: 140 QRS: 44 QRSD: 101 T: 46 [...] % Eosinophils 3.1 0.6 - 6.9 % [facility] [...] PF4 ORD ERABLES [facility] [address] [place] [address] * (ABNORMAL) HEMAGRAM (02/14/2014 22:43 EDT) WBC [...] & PF4 ORD ERABLES Performing Organization Address [facility] Co de Phone Number [facility] [address] [place] [address] * TROPONIN I (02/14/2014 22:43 EDT) Pathologist [facility] Troponin I (ng/mL) <0.034 <0.034 ng/ml [facility] Blood specimen (specimen) 02/14/2014 22:43 EDT 02/14/2014 22:50 EDT Farhan Alfaro MD CHEMISTRY & BLOOD GA S ORDERABLES Performing Organization Address [facility] de Phone Number [facility] [address] [place] [address] * CK MB WITH TOTAL CK (02/14/2014 22:43 EDT) Pathologist [facility] CK 51 0 - 250 U/L SAL [facility] MB <0.22 <4.21 ng/ml [facility] Blood specimen (specimen) 02/14/2014 22:43 EDT 02/14/2014 22:50 EDT Farhan Alfaro MD CHEMISTRY & BLOOD GA S ORDERABLES Performing Organization Address [facility] de Phone Number SAL [facility] [address] [place] [address] * HEMOGLOBIN A1C (02/14/2014 22:43 EDT) Pathologist [facility] Hemoglobin A1C 6.8 % [facility] Comment: Reference Range: <5.7% Normal 5.7-6.4% Increased [...] BLOOD GA S ORDERABLES Performing Organization Address [facility] de Phone Number SAL [facility] [address] [place] [address] * SCREENING GLUCOSE (02/14/2014 22:43 EDT) Glucose, Screening 94 70 - 100 mg/dl [facility] Blood specimen (specimen) 02/14/2014 22:43 EDT 02/14/2014 22:50 EDT Farhan Alfaro MD CHEMISTRY & BLOOD GA S ORDERABLES Performing Organization Address [facility] [place] [address] * EKG 12-LEAD (02/14/2014 22:28 EDT) 02/14/2014 22:2 8 EDT Narrative [facility] EKG - 02/15/2014 12:55 EDT ?[facility] ? Test Date: ?2014-02-14 Pat Name: ? ROMEO PATELONEY ?Department: ?? Roy 5 ? Room: ? ME507 Gender: ? M ?Auto Claim Representative: ?? [id number] : ?1965 ? Requested By: FARHAN ALFARO MD Order Number: [id number] ? Reading : ?? ROMEO ART MD ? Measurements Intervals ?[place] ? Rate: ? 60 ? P: ?-7 [place]: ? 149 ?QRS: ?31 QRSD: ? 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 : 1965 Requested By: FARHAN ALFARO MD Order Number: [id number] Reading MD: ROMEO ART MD Measurements Intervals [place] Rate: 60 P: -7 [place]: 149 QRS: 31 QRSD: 100 T: 35 [...] CARDIAC ECG ORDERABL ES Performing Organization Address City/[facility] Co de Phone Number [facility] * GLUCOSE, GLUCOMETER (02/14/2014 22:26 EDT) Glucose, Fingerstick 87 70 - 100 mg/dl [facility] [employer] [place] [id number] [facility] Comment:Test Performed by [facility] 02/14/2014 22:2 6 EDT 02/14/2014 22:44 EDT Mahi Mcginnis MD CHEMISTRY & BLOOD G ORDERABLES Performing Organization Address City/[facility] Co de Phone Number [facility] [address] [place] [address] documented in this encounter Visit Diagnoses Diagnosis Chest pain- Primary Chest pain, unspecified Chest pain Chest pain, unspecified CAD (coronary artery disease) Coronary atherosclerosis of unspecified type of vessel, [place] or graft Unstable angina (HCC-CMS) Intermediate coronary syndrome S/P coronary artery stent placement Postsurgical percutaneous transluminal coronary angioplasty status NSTEMI (non-ST elevated myocardial infarction) (HCC-CMS) Acute myocardial infarction, subendocardial infarction, episode of care unspecified Unstable angina (HCC-CMS) Intermediate coronary syndrome CAD (coronary artery disease) Coronary atherosclerosis of unspecified type of vessel, [place] or graft documented in this encounter Administered [...] Asad Bauman RN) 0944 (Given - Provider: oRsario Russo RN) gabapentin (NEURONTIN) capsule 300 mg (CANCELED) 300 mg, oral, 2 TIMES DAILY BEFORE BREAKFAST & LUNCH, First dose on Thu02/15/14 at 0700, Until Discontinued, Routine 0613 (Hold - Provider: Asad Bauman RN - Reason: Patient/family refused - Comment: wants to wait until after [facility])1315 (Given - Provider: Gina Mix RN - Comment: off unit) 0605 (Given - Provider: Asad Bauman, VERO)1204 (Given - Provider: Rosario Russo [...] RN - Reason: Other - Comment: s/p [facility]) nitroglycerin 400 mcg/ml in D5W 250 ml infusion (CANCELED) 5 mcg/min (rounded to 0.8 mL/hr), intravenous, CONTINUOUS, Starting on Thu02/15/14 at 0115, Until Thu02/16/14 at 1734, Routine 0058 (New Bag - Provider: Asad Bauman RN)0831 (New Bag - Provider: Gina Mix RN)0833 (Rate Change - Provider: Gina Mix RN)1317 (Hold - Provider: Gina Mix RN - Reason: Other - Comment: s/p [facility]) PRN Medication Order 02/14/2014 02/15/2014 02/16/2014 cyclobenzaprine [...] 02/14/2014 documented in this encounter Care Teams Snubber Relationship Specialty Start Date End Date Sarita Lim MD [address] [place] [id number] PCP - General 12/17/11 documented as of this encounter
--- OUTSIDE RECORDS SUMMARY | 2024-04-30 18:24 | XMS_ITS | Encounter Summary ---
Author Organization [facility] Address [address] [place] [address] Care Team Providers Care Bobbin Marker Name Role Phone Unavailable Primary Care Provider Unavailabl e Encounter Details Date Type Department Care Team (Late st Contact Info) Description 12/15/2011 Results Only [facility] [phone] Randell Kate, [address] [place], [place] [id number] Social History Tobacco Use Types Packs/Day Years [...] ? ROMEO COE ? Accession #: ? [id number] : ? 1965 (Age: 46) ??M ?Collect [...] PATHOLOGY ORDER [facility] [address] [place] [address] documented in this encounter Visit Diagnoses Not on filedocumented in this encounter
--- OUTSIDE RECORDS SUMMARY | 2024-04-30 18:24 | XMS_ITS | Encounter Summary ---
Author Organization [facility] Address [address] [place] [address] Care Team Providers Care Director Workers Compensation Name Role Phone Coni Lim MD Primary Care Provider [phone] Encounter Details Date Type Department Care Team (Late st Contact Info) Description 05/17/2022 Lab Requisition [facility] Pathology & Laboratory Medicine - [facility] [address] [place] [address] Outr Resulting Lab, Provider Social History Tobacco [...] <12.0 IU/mL 05/18/2022 15:59 EDT [facility] Blood VENOUS BLOOD / Unknown 05/16/2022 12:56 EDT 05/18/2022 15:42 EDT Provider Outr Resulting Lab CHEMISTRY & BLOOD GAS ORDERABLES Performing Organization Address [facility] Co de Phone Number [facility] [address] [place] [address] * ANTI NUCLEAR AB (BERRY), IFA (05/16/2022 12:56 EDT) BERRY Interpretation Negative Negative 2021 13:48 EDT [facility] Comment:No titer performed, BERRY Screen is negative. Blood VENOUS BLOOD / Unknown 05/16/2022 12:56 EDT 05/18/2022 15:42 EDT Narrative [facility] - 05/19/2022 13:48 EDT Results were obtained with the INOVA NOVA Lite HEp-2 BERRY Kit by indirect immunofluorescence. Provider Outr Resulting Lab IMMUNOLOGY A ND SEROLOGY ORDERABLES Performing Organization Address [facility]/ZIP Co de Phone Number [facility] [address] [place] [address] documented in this encounter Visit Diagnoses Not on filedocumented in this encounter Care Teams Director Workers Compensation Relationship Specialty Start Date End Date oCni Lim MD [address] [place] [address] PCP - General 12/17/11 documented as of this encounter
--- NOTE | 2024-04-30 18:56 | TELEP.MEDR_ITS ---
Date of service: 04/30/24 Time of Service: 18:57 Telepharmacy Home Med Rec Allergies Allergies: thallium-201 (Thallium-201) Allergy (Severe, Verified 01/20/23 10:56) [place] [facility] [place] ciprofloxacin Allergy (Intermediate, Verified 01/20/23 10:56) lisinopril Adverse Reaction (Verified 01/20/23 10:56) cough Paper tape Allergy (Intermediate, Uncoded 01/20/23 10:56) rash Interview Person Interviewed: * Patient Quality Quality of Interview/Accuracy of Medication List: Fair Sources Sources used to compile medication list: [employer] Medication List and [place] Changes made to Home Medication List: ADDITIONS: * None DELETIONS: * Trulicity (cant get med outpatient) * Amlodipine CHANGES: * Gabapentin 900mg po tid (was 600mg AM, 900mg Noon and 900mg PM) * Topamax 25mg po AM and 50mg po PM (was 25-50 daily) * Mirapex 0.5mg po AM and 1mg po PM (was 0.5mg bid) Additional Notes Additional Notes: * Updated medication list with information provided by patient. Per patient is taking pregabalin and gabapentin regularly together. This maybe be a therapeutic duplication. Consider modification to optimize one agent or another if clinically appropriate. Recommended Changes Recommended Changes(reason for recommendation): * None Attestation: The home medication list is now updated to the best of my knowledge and is ready to be reconciled by the provider. Please contact the TelePharmacy Medication Reconciliation Pharmacist at for any questions.
--- NOTE | 2024-04-30 18:56 | TELEP.MEDREC ---
Date of service: 04/30/24 Time of Service: 18:57 Telepharmacy Home Med Rec Allergies Allergies: thallium-201 (Thallium-201) Allergy (Severe, Verified 01/20/23 10:56) [place] [facility] [place] ciprofloxacin Allergy (Intermediate, Verified 01/20/23 10:56) lisinopril Adverse Reaction (Verified 01/20/23 10:56) cough Paper tape Allergy (Intermediate, Uncoded 01/20/23 10:56) rash Interview Person Interviewed: Patient Quality Quality of Interview/Accuracy of Medication List: Fair Sources Sources used to compile medication list: [employer] Medication List and [employer] Changes made to Home Medication List: ADDITIONS: None DELETIONS: Trulicity (cant get med outpatient) Amlodipine CHANGES: Gabapentin 900mg po tid (was 600mg AM, 900mg Noon and 900mg PM) Topamax 25mg po AM and 50mg po PM (was 25-50 daily) Mirapex 0.5mg po AM and 1mg po PM (was 0.5mg bid) Additional Notes Additional Notes: Updated medication list with information provided by patient. Per patient is taking pregabalin and gabapentin regularly together. This maybe be a therapeutic duplication. Consider modification to optimize one agent or another if clinically appropriate. Recommended Changes Recommended Changes(reason for recommendation): None Attestation: The home medication list is now updated to the best of my knowledge and is ready to be reconciled by the provider. Please contact the TelePharmacy Medication Reconciliation Pharmacist at for any questions.
[2024-04-30] MEDS: Normal Saline Flush 10 ML SYR IVP (19:27)
[2024-04-30] MEDS: Ranolazine 500 MG TABCR PO (19:51)
[2024-04-30] MEDS: Pregabalin 50 MG CAP PO (19:52)
[2024-04-30] MEDS: DULoxetine 30 MG CAP 60 MG PO (19:52)
[2024-04-30] MEDS: buPROPion-CR 150 MG TABCR PO (19:52)
[2024-04-30] MEDS: Colchicine 0.6 MG TAB PO (19:52)
[2024-04-30] MEDS: Rosuvastatin 10 MG TAB 20 MG PO (19:55)
[2024-04-30] MEDS: Enoxaparin 40 MG/0.4 ML SYR SC (19:56)
[2024-04-30] MEDS: Budesonide/Formoterol 80/4.5 6.9 GM 60 PUFF INH IH (20:39)
[2024-04-30] MEDS: Albuterol HFA 8 GM 60 PUFF INH IH (20:42)
[2024-04-30] MEDS: Gabapentin 300 MG CAP 900 MG PO (21:50)
[2024-04-30] MEDS: Pramipexole 0.5 MG TAB 1 MG PO (21:50)
[2024-04-30] MEDS: Sucralfate 1 GM TAB PO (21:50)
[2024-04-30] MEDS: Topiramate 50 MG TAB PO (22:02)
[2024-05-01] VITALS (9 sets, daily range): BP systolic 94–121; BP diastolic 61–80; PULSE 56–78; RESP 15–20; TEMP 36.1–36.9; O2SAT 95–100
--- NOTE | 2024-05-01 | DI.CT_ITS ---
Exam(s) CT HEAD WO EXAM: CT HEAD WO CLINICAL HISTORY: Altered LOC. TECHNIQUE: Imaging Protocol: Axial computed tomography images with coronal and sagittal reformatted images were created and reviewed COMPARISON: CT CT HEAD WO from 04/30/2024 FINDINGS: Ventricles and Extra axial spaces: Normal in size and morphology for the patient's age. Hemorrhage: None. Cerebral parenchyma: No evidence of an acute territorial infarct is seen. There is no mass effect. Midline shift: None. Brainstem/Cerebellum: Normal. Calvarium: Normal. Visualized Paranasal sinuses/Mastoids: Clear. Soft Tissues: Unremarkable. IMPRESSION: No acute intracranial process. There is continued clinical concern, an MRI of the brain should be ob tained for further evaluation. RADIATION DOSE DELIVERED: 880.67mGy.cm Total DLP DATA REPOSITORY: All CT scans at this facility are submitted to the National Radiology Data Registry (NRDR) Dose Index Registry (DIR) with the [employer] (ACR). RADIATION OPTIMIZATION: All CT scans at this facility use at least one of these dose optimization te chniques: automated exposure control; mA and/or kV adjustment per patient size (includes targeted exa ms where dose is matched to clinical indication); or iterative reconstruction.
[2024-05-01 06:25] LABS: Abs Immature Grans 0.07 10^3/uL (0.0-0.06); Absolute Basophil Count 0.08 10^3/uL (0.0-0.2); Absolute Eosinophil Count 0.31 10^3/uL (0.0-0.7); Absolute Lymphocyte Count 2.38 10^3/uL (1.2-3.4); Absolute Monocyte Count 0.47 10^3/uL (0.1-0.8); Absolute Neutrophil Count 3.64 10^3/uL (1.2-6.7); Basophils % 1.2 %; Eosinophils % 4.5 %; HGB 13.6 g/dL (13.5-17.5); Lymphocytes % 34.2 %; MCH 28.7 pg (27.0-33.0); MCHC 33.2 % (32.0-36.0); MCV 87 fL (80-95); MPV 10.5 fL (8.0-11.0); Monocytes % 6.8 %; Neutrophils % 52.3 %; Platelet Count 157 10^3/uL (130-400); RBC 4.74 10^6/uL (4.36-5.78); RDW 13.3 % (11.8-14.1); RDW-SD 42.1 fL; WBC 6.95 10^3/uL (4.4-10.8)
[2024-05-01 06:47] LABS: Anion Gap 7.8 mmol/L (3-11); BUN 8 mg/dL (7-18); CO2 23.2 mmol/L (21.0-32.0); CREATININE 0.9 mg/dL (0.70-1.30); Calcium 8.7 mg/dL (8.5-10.1); Chloride 105 mmol/L (98-107); Estimated GFR 100.24 (mL/min/1.73m2); Glucose 259 mg/dL (74-106); Potassium 3.7 mmol/L (3.5-5.1); Sodium 136 mmol/L (136-145)
[2024-05-01] MEDS: Sucralfate 1 GM TAB PO ×4 (08:04→21:41)
[2024-05-01] MEDS: Pantoprazole 40 MG TABCR PO ×2 (08:04→16:22)
[2024-05-01] MEDS: Losartan 25 MG TAB 12.5 MG PO (08:06)
[2024-05-01] MEDS: Aspirin E.C. 81 MG TABEC PO (08:07)
[2024-05-01] MEDS: Isosorbide Mononitrate 30 MG TABCR PO (08:07)
[2024-05-01] MEDS: Gabapentin 300 MG CAP 900 MG PO ×3 (08:07→19:45)
[2024-05-01] MEDS: buPROPion-CR 150 MG TABCR PO ×2 (08:07→19:46)
[2024-05-01] MEDS: DULoxetine 30 MG CAP 60 MG PO ×2 (08:08→19:47)
[2024-05-01] MEDS: Metoprolol CR 50 MG TABCR 200 MG PO (08:08)
[2024-05-01] MEDS: metFORMIN C.R. 500 MG TABCR 1000 MG PO ×2 (08:08→17:39)
[2024-05-01] MEDS: Pramipexole 0.25 MG TAB 0.5 MG PO (08:09)
[2024-05-01] MEDS: Pregabalin 50 MG CAP PO ×3 (08:09→19:47)
[2024-05-01] MEDS: Insulin Aspart 300 UNITS/3 ML PEN SC ×3 (08:14→16:49)
[2024-05-01] MEDS: Normal Saline Flush 10 ML SYR IVP ×2 (08:14→19:48)
[2024-05-01] MEDS: Budesonide/Formoterol 80/4.5 6.9 GM 60 PUFF INH IH ×2 (08:28→20:18)
--- NOTE | 2024-05-01 09:53 | PGE_ITS ---
Date of Service Date of service: 05/01/24 Time of Service: 09:53 Assessment and Plan Assessment and plan (1) Hyperammonemia: Status: Acute Assessment and plan: NH3 45 with signs of encephalopathy in the setting of metabolic encephalopathy Patient awake A&O X3 when seen in ED- Treatment was held Change in LOC this AM after breakfast- Start lactulose NH3 level (2) Metabolic encephalopathy: Status: Acute Assessment and plan: Symptoms seem to reoccur after breakfast As above and most likely d/t hyperglycemia and dehydration see points 3. and 4. (3) Dehydration: Status: Acute Assessment and plan: Initially presented with dry mucous membranes with initial systolic blood pressure in the low 90s-m stble s/p fluid resuscitation In the setting of what was most likely HHNK will intitiate slow IV hydration with one additional liter of crystalloid IVF Despite Cr 0.9 and BUN 9, still displays somewhat dry mucous membranes CMP in AM Monitor for pulmonary congestion and decompensation Last echo done on 06/08/2021 showed an LVEF of 55% (4) Hyperglycemia: Status: Acute Assessment and plan: Finger stick AC and HS and PRN Lantus 10 units subcut now and at HS Sliding scale insulin at mealtimes On home metformin (5) Acute respiratory failure: Status: Acute Assessment and plan: 2 L of oxygen initiated in the ED with improvement in saturation No further oxygen requirement (6) Diabetes mellitus, type II: Status: Chronic Assessment and plan: As above Qualifiers: Diabetes mellitus complication status: with other specified complication Diabetes mellitus snf insulin use: 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 Qualified Code(s): E11.69 - Type 2 diabetes mellitus with other specified complication (7) AMS (altered mental status): Status: Acute Assessment and plan: Initially improving after IV resuscitation in the ED- increased lethargy s/p breakfast Repeated the head CT negative with recommendation for MRI if ongoing concerns Improved LOC later in AM Will continue to monitor No acute findings as per head CT X2 - most likely due to to metabolic state resembling HHNK as there is no ketones in the urine (8) CAD (coronary artery disease): Status: Chronic Assessment and plan: On home dose ASA (9) Hypertension: Status: Chronic Assessment and plan: On home dose losartan Qualifiers: Hypertension type: unspecified Qualified Code(s): I10 - Essential (primary) hypertension (10) Hyperlipidemia: Status: Chronic Assessment and plan: Continue Crestor (11) History of PSVT (paroxysmal supraventricular tachycardia): Status: Acute Assessment and plan: On home dose of Ranolazine Discussed with Dr. Schneider Subjective Subjective Patient reports: tolerating liquids well, tolerating a regular diet, no bowel movement, afebrile and other (generalized pain, headache 6/10, dizziness); denies voiding w/o difficulty, diarrhea, vomiting or shortness of breath Exam Narrative Exam Narrative: Constitutional The patient is lethargic, arousable to tactile stimuli, left droop, unable to protrude tongue but intelligible words, obeying commands but delayed /Resolved at luinch time HENMT: left facial droop, tongue deviation slight left ; resolved at lunch time Eyes: Well aligned Neuro:alert and oriented X2 . PEERLA 3/B/ resolved at lunch time Chest:Chest is symmetrical and normal appearance Resp: Normal respiratory pattern, unlabored breathing, ronchi clearing with cough -clear lung bilaterally Cardio: regular rhythm, S1, S, bilateral radial and dorsalis pedis pulses are positive GI: Abdomen is not distended, soft and non tender, bowel sounds are present :urunary retention, BS for 600cc, out 725 cc, Integumentary: No skin lesions or rash on exposed skin Extremities: generalized weakness to bilteral lower and upper extremities respectively w/o focal deficit, but equal strength Upon resolution slight weakness to the right more so to RLE s/p past CVA Psych: RASS 0, congruent mood and normal affect. Objective Last Vital Signs Temp 36.4 C L 05/01/24 07:31 Pulse 68 05/01/24 07:31 Resp 16 05/01/24 07:31 BP 112/78 05/01/24 07:31 Pulse Ox 97 05/01/24 07:31 Laboratory Results - last 24 hr 04/30/24 04/30/24 04/30/24 13:47 13:51 14:53 WBC 7.97 RBC 5.08 Hgb 14.8 Hct 43.5 MCV 86 MCH 29.1 MCHC 34.0 RDW 13.1 Plt Count 177 MPV 10.5 Immature Gran % 1.0 Neutrophils % 50.3 Lymphocytes % 36.0 Monocytes % 7.8 Eosinophils % 3.9 Basophils % 1.0 Nucleated RBC % 0.0 Absolute Neutrophils 4.01 Absolute Lymphocytes 2.87 Absolute Monocytes 0.62 Absolute Eosinophils 0.31 Absolute Basophils 0.08 PT 10.3 INR 1.0 APTT 21.2 L VBG pH 7.35 VBG pCO2 41 VBG pO2 78 VBG HCO3 23 VBG Total CO2 20 L VBG O2 Saturation 96 VBG Base Excess -3 L Sodium 132 L Potassium 3.9 Chloride 99 Carbon Dioxide 23.2 Anion Gap 9.8 BUN 7 Creatinine 1.1 Est GFR (CKD-EPI 2020) 78.79 Glucose 427 H Calcium 8.9 Magnesium 1.8 Total Bilirubin 0.28 AST 5 L ALT 16 Alkaline Phosphatase 82 Ammonia 45 H Creatine Kinase 100 Troponin I High Sens < 4 L NT-Pro-B Natriuret Pep 36 Total Protein 7.1 Albumin 3.4 Lipase 38 TSH 0.46 Urine Color Yellow Urine Clarity Clear Urine pH 7.0 Ur Specific [place] 1.015 Urine Protein Negative Urine Ketones Negative Urine Blood Negative Urine Nitrite Negative Urine Bilirubin Negative Urine Urobilinogen 0.2 Ur Leukocyte Esterase Negative Urine Glucose 500 H Salicylates < 2.8 Urine Opiates Screen Negative Urine Methadone Screen Negative Acetaminophen < 2 Ur Barbiturates Screen Negative Ur Tricyclics Screen Negative Ur Amphetamines Screen Negative U Benzodiazepines Scrn Negative Urine Cocaine Screen Negative Ur THC Screen Positive A Ethyl Alcohol < 3.0 ABO/Rh B Positive Antibody Screen NEGATIVE 04/30/24 05/01/24 17:09 06:07 WBC 6.95 RBC 4.74 Hgb 13.6 Hct 41.0 MCV 87 MCH 28.7 MCHC 33.2 RDW 13.3 Plt Count 157 MPV 10.5 Immature Gran % 1.0 Neutrophils % 52.3 Lymphocytes % 34.2 Monocytes % 6.8 Eosinophils % 4.5 Basophils % 1.2 Nucleated RBC % 0.0 Absolute Neutrophils 3.64 Absolute Lymphocytes 2.38 Absolute Monocytes 0.47 Absolute Eosinophils 0.31 Absolute Basophils 0.08 PT INR APTT VBG pH VBG pCO2 VBG pO2 VBG HCO3 VBG Total CO2 VBG O2 Saturation VBG Base Excess Sodium 136 Potassium 3.7 Chloride 105 Carbon Dioxide 23.2 Anion Gap 7.8 BUN 8 Creatinine 0.9 Est GFR (CKD-EPI 2020) 100.24 Glucose 259 H Calcium 8.7 Magnesium Total Bilirubin AST ALT Alkaline Phosphatase Ammonia Creatine Kinase Troponin I High Sens < 4 L NT-Pro-B Natriuret Pep Total Protein Albumin Lipase TSH Urine Color Urine Clarity Urine pH Ur Specific [place] Urine Protein Urine Ketones Urine Blood Urine Nitrite Urine Bilirubin Urine Urobilinogen Ur Leukocyte Esterase Urine Glucose Salicylates Urine Opiates Screen Urine Methadone Screen Acetaminophen Ur Barbiturates Screen Ur Tricyclics Screen Ur Amphetamines Screen U Benzodiazepines Scrn Urine Cocaine Screen Ur THC Screen Ethyl Alcohol ABO/Rh Antibody Screen Time Spent with Patient Time Spent with Patient: >50 minutes Time was spent: preparing to see the patient(eg.review tests), obtaining and/or reviewing separately otained hiistory, ordering medications,tests, procedures, referring, communicating with other health insurance healthcare representative, indepentently interpreting results, counseling the patient and care coordination
--- NOTE | 2024-05-01 09:59 | NUR.NOTE ---
Nursing Note: Recheck pt at 9:30, lethargic, slow to respond, seems weak on right side, BS 284, notified provider. VS: 36.3, pulse 66 and thready, reg, BP 126/80, RR 18, O2 96% on RA. Provder at bedside. Bladder scan 603ml, st cathed for 725ml, dark brionna urine, no foul odor. Labs and stat head CT.
[2024-05-01] MEDS: Lactulose 20 GM/30 ML CUP 30 GM PO (10:15)
[2024-05-01 10:25] LABS: Ammonia 55 umol/L (11-32)
[2024-05-01] MEDS: Topiramate 25 MG TAB PO (10:56)
[2024-05-01] MEDS: Lactated Ringers 1,000 ML 100 ML IV (10:56)
[2024-05-01] MEDS: Insulin Glargine 300 UNITS/3 ML PEN 10 UNITS SC ×2 (10:57→19:44)
[2024-05-01] MEDS: Colchicine 0.6 MG TAB PO ×2 (10:57→19:46)
[2024-05-01] MEDS: Ranolazine 500 MG TABCR PO ×2 (10:57→19:46)
[2024-05-01] MEDS: Acetaminophen 500 MG TAB 1000 MG PO ×2 (11:40→17:47)
--- NOTE | 2024-05-01 11:58 | NUR.NOTE ---
Nursing Note: Pt in to work with 227. She was concerned about his right sided weakness, notified provider about it. Pt is sitting on the side of the bed right now, eating lunch. Will monitor closely for swallowing difficulties.
--- NOTE | 2024-05-01 11:59 | IN_ITS ---
PT Notes Visit Reasons: metabolic encephalopathy, hyperglycemia, Physical Therapy Inpatient Initial Evaluation Date: 05/01/2024 Referring Doctor: Lisa Plummer NP PT Orders: PT CONSULT: Eval for Assitsive Device Precautions: Fall. Standard. Activity as tolerated. Some mild R UE neglect seen, needs cueing for safety. Patient Profile/Admitting Diagnosis: Romeo is a 58-year-old male admitted to the ED on 04/30/2024 due to altered mental status and report of chest pain. Patient is admitted for management of hyper, anemia, metabolic encephalopathy, dehydration, hyperglycemia, ARF, DM, and altered mental status. PMHX: All Active Problems Acute respiratory failure (Acute) Metabolic encephalopathy (Acute) Hyperammonemia (Acute) Dehydration (Acute) Hyperglycemia (Acute) AMS (altered mental status) (Acute) Thyroid nodule (Acute) Hyperplastic colon polyp (Acute) Tubular adenoma of colon (Acute) CAD (coronary artery disease) (Chronic) a[place] [facility] [place] b[place] Restenosis of LAD and two more stents to LAD at [facility] 01/2014 c. 50% proximal RCA lesion d. Recurrent angina on Ranolazine e. Normal Camacho scan 08/2014 Tobacco abuse (Chronic) History of TIA (transient ischemic attack) (Chronic) Obesity (Chronic) Diabetes mellitus, type II (Chronic) Hypertension (Chronic) Hyperlipidemia (Chronic) Atherosclerotic cardiovascular disease (Acute) Atypical angina (Acute) Screening for colon cancer (Acute) Encounter for colorectal cancer screening (Acute) Medical History Encephalopathy 04/08/23 with syncope, [facility] ER [facility]ubated to [facility] d/c 04/09/23 [facility] Hemiplegic migraine (03/21/15) Migraine headache with aura (03/21/15) Medication overuse headache (03/21/15) Knee pain Diabetes mellitus Ketoacidosis due to secondary diabetes mellitus Low back pain Asthma COPD (chronic obstructive pulmonary disease) Abscess of right groin Dental infection Discharge planning issues Hypomagnesemia Ileitis Hematuria Smoker Myocardial infarction, inferior wall 2012 Hemiplegic migraine With intractable migraine, so stated, without mention of status migrainosus Postural lightheadedness Gastropathy Duodenitis Syncope Left cervical radiculopathy Gastroparesis diabeticorum RLS (restless legs syndrome) Tachycardia, paroxysmal Myalgia Leg pain, right Family history of colon cancer Reaction, situational Headache Acute diarrhea Abdominal pain Hypotensive episode Diverticulitis Peripheral neuropathy Palpitations Chronic pain Knee pain, left Hip pain, right Cervicalgia Shoulder pain, left Depression H/O: gout GERD (gastroesophageal reflux disease) Fibromyalgia Thyroid nodule Cholelithiasis a. cholecystectomy Surgical History Hx of discectomy History of arthroscopic surgery of shoulder Hx of tonsillectomy History of cholecystectomy History of knee surgery History of colonoscopy (~09/2021) History of coronary artery stent placement H/O surgical procedure a. cath and stents b. cholecystectomy c. back surgery Social History/Home Situation: Lives with in a home with one step to enter. Modified independent with single point cane for all mobility ADL performance. Equipment Owned/DME: [facility] Subjective: Patient stated that his 6-year-old dog a couple of days ago and he did a lot of digging to bury her. He did not feel well and brought himself to urgent care. He does not remember being brought to the ED. He also added that there has been issues with pharmacy being able to supply his blood sugar medications parul OG has written prescription refills already. reported that his right side has been historically weaker due to his previous stroke. His R arm though is much weaker today than it had been. Objective: General Observation: Dropping of R corner of mouth. Ptosis on R. IV through L UE. Mental Status: Alert. Able to follow double step commands albeit slowly. Able to respond to questions appropriately. Able to recognize family ember's voice over the phone and hold conversation. Pain: Headache from R parietal area radiating to the R side of face Vital Signs: 115/78 bpm, 93% on RA, 79 bpm while supine ROM: Right Upper Extremity: Shoulder Flexion allows up to 60 degrees. Shoulder abduction allows up to about 40 degrees Elbow flexion WFL. Wrist flexion WFL. Functional opening and closing of hand WFL. Left Upper Extremity: Shoulder Flexion allows up to 110 degrees. Shoulder abduction allows up to 90 degrees. Elbow flexion WFL. Wrist flexion WFL. Functional opening and closing of hand WFL. Right Lower Extremity: Hip flexion allows up to about 90 degrees. Hip abduction WFL. Knee flexion 3about 0-90 degrees. Knee extension -30 degrees. Ankle dorsiflexion to neutral only. Ankle plantarflexion WFL. Left Lower Extremity: Hip flexion WFL. Hip abduction WFL. Knee flexion about 10 degrees to 110 degrees. knee extension -10 degrees. Ankle dorsiflexion WFL. Ankle plantarflexion WFL. Strength: Right Upper Extremity: Shoulder flexors 2-/5. Shoulder abductors 2-/5. Elbow flexors 4-/5. Elbow extensors 4-/5. Paper Goods Machine Set Up Operator weak but functional. Left Upper Extremity: Shoulder flexors 4-/5. Shoulder abductors 4-/5. Elbow flexors 4-/5. Elbow extensors 4-/5. Paper Goods Machine Set Up Operator strong. Right Lower Extremity: Hip flexors 3-/5. Hip abductors 3-/5. Knee flexors 3-/5. Knee extensors 3-/5. Ankle dorsiflexors 3/5. Ankle plantarflexors4-/5. Left Lower Extremity: Hip flexors 4-/5. Hip abductors 4-/5. Knee flexors 4/5. Knee extensors 4/5. Ankle dorsiflexors 4/5. Ankle plantarflexors 4/5. Bed Mobility/Transfers: Moderate cueing provided for use of B hands as needed for support, movement sequence, AD management, and posture to reduce fall risk and minimize pain report Supine to sit minimal assist to R LE, HOb about 30 degrees Sit to stand minimal assist Stand to sit contact guard assist with FWW Bed to reclining chair minimal assist with FWW Gait: Facilitated safe and correct performance of in-room ambulation of about 15 feet using FWW and contact guard assist of PT as well as stand by assist/IV pole management of Nurse Mcginnis. Bedise recliner follow was done to ensure safety. Patient reported increased weight placed on R hand and the R foot feeling heavier. No loss of balance nor buckling at the R knee. Balance: Static Sitting: Normal Dynamic Sitting: Fair Static Standing: Not tested Dynamic Standing: Not tested Special Tests: Mobility Limitations Standardized Measure [facility] 6 clicks Basic Mobility Inpatient Short Form: Raw Score: 13 CMS Score: 65% deficit Pronator drift: Positive on L Rapid Alternating movement: Impaired Facial asymmetry: R ptosis and R facial droop (R corner of mouth down) Romberg test: Not done today Informed Consent/Education: Patient was instructed in purpose of PT consult and plan of care. Agreeable to proceed with established PT POC to achieve personal goals. ASSESSMENT: R-sided hemiplegia from previous TIA that evolved to cerebral infarction back in 2008 and TIA from 2014. Some right-sided UE neglect noted as patient has minimal use of R hand while being observed by PT eating lunch. Patient reported increased weakness on the R UE compared to what he was used to. Chronic headache from R parietal radiating to the right side of his face not worse. Patient was able to sit up at edge of bed for lunch demonstrating good sitting balance and tolerance. No confusion noted as patient was able to answer questions appropriately. Observed less use of R UE while eating lunch as he stated it was heavier than it used to be. Observed R ptosis and facial asymmetry with R corner of mouth drooping. Mobility deficit score of 65% using [facility] needing assistance with mobility ADL performance. LAND SURVEYOR ASSISTANT Lisa updated of findings. Does not recollect coming to the ED yesterday nor does he remeber Nurse Ras and Nurse Seth taking him to the CT scan testing. Patient presents with clinical signs and symptoms consistent with current/admitting diagnoses that have resulted to mobility limitations, gait instability, generalized weakness, and overall ADL decline as demonstrated by the following impairment level findings: 1. Decreased strength to b UE/LE major muscle groups R weaker than L 2. Impaired sitting/standing balance 3. Impaired activity tolerance 4. Limitation of joint range of motion in R UE/LE 5. Slowness of movement Impairments are contributing to the following functional limitations: 1. Decline in bed mobility skills 2. Decline in transfer skills 3. Difficulty with ambulation without assistive device and physical assistance 4. Increased completion time for mobility ADL performance 5. Increased risk for falls 6. Difficulty with managing steps alone safely Patient is assessed as a 31323 moderate complexity based on the following: History: 58-year-old male with past medical history as indicated above Examination: Demonstrable impairment in strength, balance, and mobility level with underlying impairments and functional limitations as exhibited above as well as deficit score of 65% utilizing the [facility] Mobility Inpatient Short Form Presentation: Evolving Decision Makin moderate complexity Goals: Goals X1 week 1. Supine-Sit independent 2. Sit-Supine independent 3. Sit-Stand independent 4. Stand-Sit independent with FWW 5. Bed-Chair independent with FWW 6. Chair-Bed independent with FWW 7. Independent gait on level surface with use of FWW for at least 150 feet without report of pain nor dyspnea 8. Independent stair negotiation while holding onto B rails for at least 1 step without report of pain nor dyspnea 9. Independent with home exercise program 10. Good static and dynamic standing balance/tolerance Plan of Care/Treatment Plan: 1-2x/day, 7 days/week x 1 week. Plan of care has been reviewed with the LABORER DRIVER providing the service under Physical Therapy direction. Initiate Physical Therapy intervention for pain management as needed, strengthening, bed mobility, transfers, gait, stairs, balance training, and use of assistive device. DISCHARGE RECOMMENDATIONS: [] Home with no services [] [] Home with services [specify] [] Home with outpatient PT [] [] SNF for continued rehabilitation [] [] Regulatory Process Manager Care [] [] SNF versus LTC based on ability to participate and progress [] [X] Short-term rehab stay vs PT based on progress towards goals TREATMENT CODE/TIME: 74892 x 20 minutes for 1 unit, 04191 x 40 minutes for 3 units (11:26-12:03 and 12:33-12:56). Thank you for the opportunity to participate in the care of this patient. Nasima Martinez PT, DPT, CLT [facility] [place], [place]
--- NOTE | 2024-05-01 12:18 | NUR.NOTE ---
Nursing Note: Pt is sitting up on the side of the bed, eating unch with one hand and talking on the phone with the other. Pt reports he feels back to baseline.
--- NOTE | 2024-05-01 16:26 | PDOC.CMIN ---
Date of service: 05/01/24 Time of Service: 11:45 Care Management Initial Assmt Initial Assessment Reason for Hospitalization: Altered Mental Status Functional Status/Living Situation Patient Presentation: eDan was sitting up in the bedside chair when CM met with him. He was pleasant, and easily engaged. Dean admitted that he is not feeling great, but is better than he was yesterday. Dean stated that he is having a lot of trouble with his pharmacy. He stated that they have told him that the prescriptions were not sent by PCP, but he has witnessed PCP sending them electronically. Dean stated that RN called the pharmacy, and said Dean has not been picking up his meds as he should be. This angered Dean. He said he will always oyster picker his meds as ordered, and takes his meds as ordered. Town of Residence: [place] Resides with: Spouse (Dasia) Significant Other/Family: Local (2 children and 2 grandchilren about 1.5 hours away. Brother in [place].) Natural Supports: ,Dasia is main support. He has 2 neighbors that he calls friends. Employment Status: Disabled (has had many different jobs in his life.) Medications Medication Management: Issues/Barriers (Please see note above. Encouraged Dean to ask for paper scripts since he is having trouble with the electronic scripts.) with Obtaining Advance Directives Advance Directives: Do you have an Advance Directive: N 12/11/21 10:04 AD On File at [facility]: N 12/11/21 10:04 Date Asked 04/30/24 04/30/24 13:37 AD Date Reviewed COLST On File at [facility] COLST Date Scanned Comment: CM gave Dean a blank AD at his request. CM instructed him to NOT sign unless he has a witness, or it will not be vaild. Code Status Resuscitation Status Full Code Insurance Coverage/Financial Issues Insurance: medicaid/medicare Financial Issues: Both Dean and his receive disability income and have to watch their spending. Care Team Visit Care Team Role Provider Type Coni Lim MD Primary Care Provider [facility] STAFF PHYSICIAN Arlette Huff RDN, CDCES Other Providers OUTSOLE MOLDER Akila Lew Other Providers OUTSOLE MOLDER Gorge Fitzgerald Other Providers OSCAR Crowley RDN Other Providers OUTSOLE MOLDER Graham Garcia MD Emergency Provider [facility] STAFF PHYSICIAN Camilo Schneider MD Admit Provider [facility] STAFF PHYSICIAN Attending Provider Discharge Potential Discharge Needs: PCP F/U Appt and Other (diabetic education) Anticipated Barriers to Discharge: None Identified Patient/Family Education Needs: Review discharge instructions, discuss Ask Me Three Transportation: RCT RCT Transportation: Private vechicle Plan: Anticipate that Dean will be discharged home with no new services. He is ordered for a PT consult, but doesn't think he needs PT once discharged. Dean will follow up with his PCP, and per his plan of care. CM will continue to follow. [facility] All Active Problems (Updated 05/01/24 @ 11:35 by Lisa Plummer APRN) History of PSVT (paroxysmal supraventricular tachycardia) (Acute) Acute respiratory failure (Acute) Metabolic encephalopathy (Acute) Hyperammonemia (Acute) Dehydration (Acute) Hyperglycemia (Acute) AMS (altered mental status) (Acute) Thyroid nodule (Acute) Hyperplastic colon polyp (Acute) Tubular adenoma of colon (Acute) CAD (coronary artery disease) (Chronic) a. [place] [facility] [place] b. Restenosis of LAD and two more stents to LAD at [facility] 01/2014 c. 50% proximal RCA lesion d. Recurrent angina on Ranolazine e. 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) Migraine headache with aura (03/21/15) Medication overuse headache (03/21/15) Knee pain Diabetes mellitus Ketoacidosis due to secondary diabetes mellitus Low back pain Asthma COPD (chronic obstructive pulmonary disease) Abscess of right groin Dental infection Discharge planning issues Hypomagnesemia Ileitis Hematuria Smoker Myocardial infarction, inferior wall 2012 Hemiplegic migraine With intractable migraine, so stated, without mention of status migrainosus Postural lightheadedness Gastropathy Duodenitis Syncope Left cervical radiculopathy Gastroparesis diabeticorum RLS (restless legs syndrome) Tachycardia, paroxysmal Myalgia Leg pain, right Family history of colon cancer Reaction, situational Headache Acute diarrhea Abdominal pain Hypotensive episode Diverticulitis Peripheral neuropathy Palpitations Chronic pain Knee pain, left Hip pain, right Cervicalgia Shoulder pain, left Depression H/O: gout GERD (gastroesophageal reflux disease) Fibromyalgia Thyroid nodule Cholelithiasis a. cholecystectomy Surgical History Hx of discectomy History of arthroscopic surgery of shoulder Hx of tonsillectomy History of cholecystectomy History of knee surgery History of colonoscopy (~09/2021) History of coronary artery stent placement H/O surgical procedure a. cath and stents b. cholecystectomy c. back surgery Family History Other Cancer Colon cancer Social History Smoking/Tobacco Use Status: Current every day Tobacco Type: cigarettes Smoking risk assessment performed?: Yes Alcohol Intake: former Drug use: Daily Substance use type: marijuana Details: 2-3 joints/day Household members: spouse Housing: house Number of Children: 2 current occupation: Disabled Current gender identity: male What type of physical activity do you participate in: walking, independent ambulation and additional Details: work at home (outside work) Do you feel safe at home: Yes Do you feel safe in your relationship?: Yes Readmission Within the Past 30 Days Yes or No: No SDOH(Care Management) Screening Will the Patient Participate in the Screening?: Yes Do you worry about having a steady place to live?: no In the past 12 months, have you had to go without electric, gas, oil or water in your home?: no Have you or anyone in your house had to go without enough food to eat?: no Has lack of transportation kept you from medical appointments or from doing things needed for daily living?: yes (Dean does not currently have a license. Owns a car that is not registered.) Has anyone in your support network made you feel unsafe for any reason?: no Health Related Social Needs Health related social needs: transportation insecurity(Z59.82)
[2024-05-01] MEDS: Prochlorperazine 10 MG TAB PO (19:42)
[2024-05-01] MEDS: Enoxaparin 40 MG/0.4 ML SYR SC (19:45)
[2024-05-01] MEDS: Lactulose 20 GM/30 ML CUP PO (19:45)
[2024-05-01] MEDS: Pramipexole 0.5 MG TAB 1 MG PO (19:46)
[2024-05-01] MEDS: Rosuvastatin 10 MG TAB 20 MG PO (19:46)
[2024-05-01] MEDS: Topiramate 25 MG TAB 50 MG PO (19:46)
[2024-05-02] MEDS: Acetaminophen 500 MG TAB 1000 MG PO ×4 (00:03→17:58)
[2024-05-02 05:38] VITALS: BP 116/73; PULSE 69; RESP 12; TEMP 36.1; O2SAT 97
[2024-05-02 06:04] LABS: Abs Immature Grans 0.08 10^3/uL (0.0-0.06); Absolute Basophil Count 0.07 10^3/uL (0.0-0.2); Absolute Eosinophil Count 0.27 10^3/uL (0.0-0.7); Absolute Lymphocyte Count 2.82 10^3/uL (1.2-3.4); Absolute Monocyte Count 0.55 10^3/uL (0.1-0.8); Absolute Neutrophil Count 4.88 10^3/uL (1.2-6.7); Basophils % 0.8 %; Eosinophils % 3.1 %; HCT 41.9 % (40.0-50.0); Immature Grans % 0.9 %; Lymphocytes % 32.5 %; MCH 28.9 pg (27.0-33.0); MCHC 33.4 % (32.0-36.0); MCV 86 fL (80-95); MPV 10.7 fL (8.0-11.0); Monocytes % 6.3 %; Neutrophils % 56.4 %; Platelet Count 171 10^3/uL (130-400); RBC 4.85 10^6/uL (4.36-5.78); RDW 13.3 % (11.8-14.1); RDW-SD 41.5 fL; WBC 8.67 10^3/uL (4.4-10.8)
[2024-05-02 06:27] LABS: ALT 19 U/L (16-63); AST 10 U/L (15-37); Albumin 3.1 g/dL (3.4-5.0); Alkaline Phosphatase 69 U/L (46-116); Anion Gap 8.3 mmol/L (3-11); BUN 7 mg/dL (7-18); Bilirubin, Total 0.22 mg/dL (0.2-1.0); CO2 23.7 mmol/L (21.0-32.0); CREATININE 1.1 mg/dL (0.70-1.30); Calcium 9.2 mg/dL (8.5-10.1); Chloride 104 mmol/L (98-107); Estimated GFR 78.79 (mL/min/1.73m2); Glucose 222 mg/dL (74-106); Potassium 3.7 mmol/L (3.5-5.1); Sodium 136 mmol/L (136-145); Total Protein 6.4 g/dL (6.4-8.2)
[2024-05-02] MEDS: Colchicine 0.6 MG TAB PO (07:37)
[2024-05-02] MEDS: Isosorbide Mononitrate 30 MG TABCR PO (07:38)
[2024-05-02] MEDS: buPROPion-CR 150 MG TABCR PO ×2 (07:38→19:43)
[2024-05-02] MEDS: Topiramate 25 MG TAB PO (07:38)
[2024-05-02] MEDS: DULoxetine 30 MG CAP 60 MG PO ×2 (07:38→19:43)
[2024-05-02] MEDS: Metoprolol CR 50 MG TABCR 200 MG PO (07:39)
[2024-05-02] MEDS: Pramipexole 0.25 MG TAB 0.5 MG PO (07:39)
[2024-05-02] MEDS: Pantoprazole 40 MG TABCR PO ×2 (07:40→16:50)
[2024-05-02] MEDS: Sucralfate 1 GM TAB PO ×4 (07:40→19:43)
[2024-05-02] MEDS: metFORMIN C.R. 500 MG TABCR 1000 MG PO ×2 (07:41→16:51)
[2024-05-02] MEDS: Aspirin E.C. 81 MG TABEC PO (07:41)
[2024-05-02] MEDS: Losartan 25 MG TAB 12.5 MG PO (07:41)
[2024-05-02] MEDS: Pregabalin 50 MG CAP PO ×3 (07:41→19:44)
[2024-05-02] MEDS: Ranolazine 500 MG TABCR PO ×2 (07:41→19:43)
[2024-05-02] MEDS: Gabapentin 300 MG CAP 900 MG PO (07:41)
[2024-05-02] MEDS: Insulin Aspart 300 UNITS/3 ML PEN SC ×2 (07:42→11:30)
[2024-05-02] MEDS: Normal Saline Flush 10 ML SYR IVP ×5 (07:52→19:45)
[2024-05-02] MEDS: Budesonide/Formoterol 80/4.5 6.9 GM 60 PUFF INH IH ×2 (07:58→20:29)
[2024-05-02 08:04] VITALS: BP 114/79; PULSE 71; RESP 17; TEMP 36.4; O2SAT 97
[2024-05-02 08:25] LABS: Cholesterol 180 mg/dL (<200); HDL Cholesterol 34 mg/dL (40-60); Triglyceride 486 mg/dL (<150)
[2024-05-02 08:44] LABS: LDL CHOLESTEROL 82 mg/dL (<100)
[2024-05-02] MEDS: Lactulose 20 GM/30 ML CUP PO (09:09)
--- NOTE | 2024-05-02 10:28 | W.PM.PROGNOT ---
Date of Service Date of service: 05/02/24 Time of Service: 10:28 Assessment and Plan Assessment and plan (1) AMS (altered mental status): Status: Acute Assessment and plan: Initially improving after IV resuscitation in the ED- transient increased lethargy with at least right facial droop in AMs, but less symptomatic as metabolic state normalizes No acute findings as per head CT X2 - most likely due to to metabolic state resembling HHNK as there is no ketones in the urine Recommendation for MRI if ongoing concerns - MRI was unremarkable ( past CVA, TIA, TG 486) Will continue to monitor (2) Hyperammonemia: Status: Acute Assessment and plan: NH3 45 and 55 with signs of encephalopathy in the setting of metabolic encephalopathy Continue lactulose (3) Metabolic encephalopathy: Status: Acute Assessment and plan: Symptoms seem to reoccur but less intense MRI negative As above and most likely d/t hyperglycemia and dehydration see points 3. and 4. (4) Dehydration: Status: Acute Assessment and plan: On presentation: dry mucous membranes, SBP in the low 90s- stable s/p fluid resuscitation of 2 l IVF bolus In the setting of what was most likely HHNK additional liter of crystalloid IVF completed Cr 1.1 and BUN 7 CMP in AM Last echo done on 06/08/2021 showed an LVEF of 55%, f/u as per PCP for OPT f/u (5) Hyperglycemia: Status: Acute Assessment and plan: A1C 12 Continue Finger stick AC and HS and PRN Increase Lantus 20 units subcut at HS Continue Sliding scale insulin at mealtimes Continue home metformin (6) Diabetes mellitus, type II: Status: Chronic Assessment and plan: As above Contacted PCP to discuss plan Qualifiers: Diabetes mellitus complication status: with other specified complication Diabetes mellitus jail insulin use: without termite renewal inspector use Qualified Code(s): E11.69 - Type 2 diabetes mellitus with other specified complication (7) Acute respiratory failure: Status: Acute Assessment and plan: Resolved 2 L of oxygen initiated in the ED with improvement in saturation No further oxygen requirement (8) CAD (coronary artery disease): Status: Chronic Assessment and plan: Continue home dose ASA (9) Hypertension: Status: Chronic Assessment and plan: Continue home dose losartan Qualifiers: Hypertension type: unspecified Qualified Code(s): I10 - Essential (primary) hypertension (10) Hyperlipidemia: Status: Chronic Assessment and plan: Continue Crestor Tryglycerides 486- Lopid added Start omega-3 acid ethyl esters LDL unable to obtain d/t above but direct LDL chol 82 (<100) HDL 34 (11) History of PSVT (paroxysmal supraventricular tachycardia): Status: Acute Assessment and plan: On home dose of Ranexa Discussed with Subjective Subjective Patient reports: feels better, tolerating liquids well, tolerating a regular diet, voiding w/o difficulty, flatus, bowel movement and other (earlier this AM, reporting feeling off like yesterday but to a lesser extent); denies blood in stool, nausea, vomiting, shortness of breath or fever Exam Narrative Exam Narrative: Constitutional The patient is w/o acute distress HENMT: Slight left facial droop w/o tongue deviation Eyes: Well aligned Neuro:alert and oriented X3 . Resp: Normal respiratory pattern, unlabored breathing,clear lung bilaterally Cardio: regular rhythm, S1, S, bilateral radial and dorsalis pedis pulses are positive GI: Abdomen is not distended, soft and non tender, bowel sounds are present :no CVA tenderness, Integumentary: No skin lesions or rash on exposed skin Extremities: slight weakness to the right more so to RLE s/p past CVA Psych: RASS 0, congruent mood and normal affect. Objective Last Vital Signs Temp 36.4 C L 05/02/24 08:04 Pulse 71 05/02/24 08:04 Resp 17 05/02/24 08:04 BP 114/79 05/02/24 08:04 Pulse Ox 97 05/02/24 08:04 Laboratory Results - last 24 hr 05/02/24 05:40 WBC 8.67 RBC 4.85 Hgb 14.0 Hct 41.9 MCV 86 MCH 28.9 MCHC 33.4 RDW 13.3 Plt Count 171 MPV 10.7 Immature Gran % 0.9 Neutrophils % 56.4 Lymphocytes % 32.5 Monocytes % 6.3 Eosinophils % 3.1 Basophils % 0.8 Nucleated RBC % 0.0 Absolute Neutrophils 4.88 Absolute Lymphocytes 2.82 Absolute Monocytes 0.55 Absolute Eosinophils 0.27 Absolute Basophils 0.07 Sodium 136 Potassium 3.7 Chloride 104 Carbon Dioxide 23.7 Anion Gap 8.3 BUN 7 Creatinine 1.1 Est GFR (CKD-EPI 2020) 78.79 Glucose 222 H Hemoglobin A1c 12.0 H Calcium 9.2 Total Bilirubin 0.22 AST 10 L ALT 19 Alkaline Phosphatase 69 Total Protein 6.4 Albumin 3.1 L Triglycerides 486 H Total Cholesterol 180 LDL Cholesterol Direct 82 LDL Cholesterol, Calc TNP HDL Cholesterol 34 L Time Spent with Patient Time Spent with Patient: >50 minutes Time was spent: preparing to see the patient(eg.review tests), obtaining and/or reviewing separately otained hiistory, ordering medications,tests, procedures, referring, communicating with other health point of care technician, indepentently interpreting results, counseling the patient, care coordination and other (OPT pharmacist, PCP )
[2024-05-02 11:02] VITALS: BP 107/67; PULSE 75; RESP 18; TEMP 36.7; O2SAT 97
--- NOTE | 2024-05-02 11:17 | PTTR_ITS ---
PT Notes Visit Reasons: Metabolic Encephalopathy,Hyperglycemia,Dehydration Inpatient Physical Therapy Treatment Note [facility] Date: 05/02/2024 PRECAUTIONS: Standard, telemetry in place, SUBJECTIVE: Patient reports feeling better today despite report of dizziness at end of session. OBJECTIVE: Patient alert male sitting in edge of bed telemetry in place. Patient agreeable to participate in session? PAIN: Denies VITALS: ? Pre-Treatment: 114/79 ? Post-Treatment: 107/67 Therapeutic Activities (92122): Direct one-on-one instruction in dynamic activities to improve functional performance. ? BED MOBILITY/TRANSFERS? Rolling L/R: Independent Supine-sit: Supervision with head of bed up? Sit-stand: CGA? Stand-sit: CGA ? Bed-Chair: CGA with FWW ? x 4 trials? Chair-bed: CGA with FWW x 4 trials Provided skilled cues and instruction on performance and technique throughout. Direct one-on-one instruction and skilled instruction in: [] employing an assistive device [] modified weight-bearing status [] movement sequencing [X] turning and movement with proper form [X] Provided verbal cues for equipment management and technique [] Provided instruction in gait pattern [X] Patient education regarding pacing and breathing techniques to maximize activity tolerance? GAIT? Assistive Device: FWW? Weight bearing: Full Assist: CGA ? Distance: 30 feet ? ?; 20 feet x 2 2nd session ? Deviation: Patient demonstrates decreased step length bilaterally, posterior weight shift onto heels with toe extension on right, right lower extremity externally rotated for stability and during swing phase.? STAIRS: ? Therapeutic Exercises (94742j[]): Direct one-on-one instruction in therapeutic exercises to develop strength, endurance, range of motion and flexibility. ? Exercises ? Provided skilled instruction in proper exercise performance Provided skilled manual cues to facilitate proper muscle recruitment and/or form: [] Neuromuscular Re-education (16834o2): Activities that facilitate re-education of movement balance, posture, coordination, and proprioception or kinesthetic sense, requiring skilled tactile and verbal cues ? Exercises/techniques: stand dynamic reaching mid thigh to shoulder height with 1UE support within and outside MIKE 4 inches with CGA ? ASSESSMENT:?Patient with increased toe extension and posterior weight shift on heels during mid stance and static standing at FWW. Patient utilizes external rotation to advance right lower extremity with shortened step length bilaterally. Patient with vague reports of dizziness at end of session vitals listed as above. PLAN: Continued skilled PT for strengthening, balance, transfers, gait and stairs training TREATMENT CODE/TIME: First session 00292 x 09/926?09, [id number], [id number] DISCHARGE RECOMMENDATION: SNF for short-term rehab versus PT
--- NOTE | 2024-05-02 11:52 | PHACLINREV_ITS ---
Pharmacy Admission Review Admission Clinical Review Admission Pharmacy Review: History of PSVT (paroxysmal supraventricular tachycardia) (Acute) Acute respiratory failure (Acute) Metabolic encephalopathy (Acute) Hyperammonemia (Acute) Dehydration (Acute) Hyperglycemia (Acute) AMS (altered mental status) (Acute) thallium-201 (Thallium-201) Allergy (Severe, Verified 01/20/23 10:56) [place] [facility] [place] ciprofloxacin Allergy (Intermediate, Verified 01/20/23 10:56) lisinopril Adverse Reaction (Verified 01/20/23 10:56) cough Paper tape Allergy (Intermediate, Uncoded 01/20/23 10:56) rash Resuscitation Status Full Code Height 5 ft 10 in Weight 111.7 kg Comments Comments/Follow Ups: Follow up with provider regarding gabapentin + pregabalin combination Pharmacy Admission Review Renal Dosing Renal Dosing: BUN 7 mg/dL (7-18) 05/02/24 05:40 Creatinine 1.1 mg/dL (0.70-1.30) 05/02/24 05:40 Medications needing adjustments: Reviewed (CrCl 93.8 mL/min) List of meds needing interventions: Current medications okay Anticoagulation Anticoagulation: Hgb 14.0 g/dL (13.5-17.5) 05/02/24 05:40 Hct 41.9 % (40.0-50.0) 05/02/24 05:40 Plt Count 171 10^3/uL (130-400) 05/02/24 05:40 INR 1.0 (0.9-1.1) 04/30/24 13:47 Creatinine 1.1 mg/dL (0.70-1.30) 05/02/24 05:40 DVT Prophylaxis: Reviewed Medications: Enoxaparin (40mg daily) Relevant Labs Relevant Labs: Sodium 136 mmol/L (136-145) 05/02/24 05:40 Potassium 3.7 mmol/L (3.5-5.1) 05/02/24 05:40 Chloride 104 mmol/L (98-107) 05/02/24 05:40 Magnesium 1.8 mg/dL (1.8-2.4) 04/30/24 13:47 Electrolytes, C-Reactive P, ESR: Reviewed DM Control DM Control: Glucose 222 mg/dL (74-106) H 09/09/24 05:40 Hemoglobin A1c 12.0 % (<5.7) H 05/02/24 05:40 Finger Stick Blood Glucose 267 1130 Finger Stick Blood Glucose 267 1102 Finger Stick Blood Glucose 267 1102 Finger Stick Blood Glucose 203 0742 Finger Stick Blood Glucose 203 0735 Finger Stick Blood Glucose 203 0735 Finger Stick Blood Glucose 212 0535 Finger Stick Blood Glucose 212 0535 DM Control: Reviewed Insulin Dosing, Diabetic Medication: Has order for SS insulin, metformin 1000mg BID and glargine 10 units at bedtime. Per morning meeting, provider believes hyperglycemia may be due to medication compliance issues. Cardiac Review Cardiac Review: NT-Pro-B Natriuret Pep 36 pg/mL (<300) 04/30/24 13:47 BP, HR, EF%: Reviewed (BP and HR WNL) List meds needing interventions: Patient is on isosorbide mononitrate 30mg daily, losartan 12.5mg daily, metoprolol XL 200mg daily and ranolazine 500mg BID QTc Review QTc: Reviewed (412 from 04/30/24) IV to PO Switch IV Medications: Reviewed (ketorolac IVP PRN) Home Meds Home Med List reviewed: Reviewed Relevent Home Meds Not ordered & why?: hydroxyzine (PRN) Current Meds Current Medication Order Review: Intervened Comments: Added 2nd PRN to docusate and prochlorperazine orders per pharmacy protocol Changed metoprolol order from 50mg tablet to 100mg tablet to make administration easier Changed pramipexole from 0.25mg tablet to 0.5mg daily to make administration easier Changed frequency for nitroglycerin from PRN to q5min PRN x 3 Reached out to provider regarding colchicine order: put in as scheduled but is listed as PRN on home med list. Provider changed order to PRN. Reached out to provider regarding gabapentin and pregabalin. Per telepharmacy med rec patient states he takes both. I called [facility] ([id number] who stated he has not filled gabapentin since May of 2023 and pregabalin was filled 12/15 for 30 day supply. Unknown if patient is filling these somewhere else but unsure why he would be on both. Reached out to provider who is aware and looking into it, states they believe patient has compliance issues. Comments Comments/Follow Ups: Follow up with provider regarding gabapentin + pregabalin combination
--- NOTE | 2024-05-02 12:16 | CMPROGNOTE_ITS ---
Date of service: 05/02/24 Time of Service: 10:15 Care Management Progress Note Progress Note Text Progress Note Text: Dean was sitting up in the bedside chair, chatting on the phone with his , when CM met with him this morning. He quickly got off the phone, was very pleasant and easily engaged. Dean worked with PT yesterday and today. He says he is very weak, but does not want to go to rehab. He is willing to have HH if he has to. Dean stated that his needs him at home. CM reached out to the Interior Design Professional at his PCP office to ask her to follow up with him on discharge. Discharge Potential Discharge Needs: PCP F/U Appt and Other (HH PT) Anticipated Barriers to Discharge: None Identified Patient/Family Education Needs: Review discharge instructions, discuss Ask Me Three Transportation: RCT RCT Transportation: Private vechicle Plan: Anticipate that Dean will be discharged home with new orders for HH PT and RN (for med management). He will transport via private ride with a friend. He will follow up with PCP and continue per prescribed plan of care. CM will cont inue to follow. SDOH(Care Management) Screening Will the Patient Participate in the Screening?: Yes Do you worry about having a steady place to live?: no In the past 12 months, have you had to go without electric, gas, oil or water in your home?: no Have you or anyone in your house had to go without enough food to eat?: no Has lack of transportation kept you from medical appointments or from doing things needed for daily living?: yes (Dean does not currently have a license. Owns a car that is not registered.) Has anyone in your support network made you feel unsafe for any reason?: no Health Related Social Needs Health related social needs: transportation insecurity(Z59.82) Anticipated HH Services Anticipated HH Services at Discharge [facility] Needed, OT, PT and RN (PT/ot for strengthening, and RN for med management.) Following Provider: Coni Lim.
[2024-05-02] MEDS: Gemfibrozil 600 MG TAB PO ×2 (12:21→19:43)
[2024-05-02] MEDS: LORazepam 2 MG/ML VIAL 0.5 MG IVP (13:39)
--- NOTE | 2024-05-02 14:25 | DI.MRI_ITS ---
Exam(s) MR BRAIN WO EXAM: MR BRAIN WO CLINICAL HISTORY: transient neurological deficits TECHNIQUE: Multiplanar multisequence MRI of the brain was performed. COMPARISON: CT CT HEAD WO from 05/01/2024 FINDINGS: VENTRICLES AND EXTRA AXIAL SPACES: Normal in size and morphology for the patient's age. MIDLINE SHIFT: None. CEREBRAL PARENCHYMA: No focus of restricted diffusion to suggest acute infarct. No space-occupying le pablito identified. Minimal atrophy consistent with the patient's age. Minimal scattered foci of high s ignal in the white matter consistent with sequela of chronic microvascular disease. HEMORRHAGE: None. BRAINSTEM/CEREBELLUM: Normal. VISUALIZED PARANASAL SINUSES/MASTOIDS:Mucous retention cyst in the left maxillary sinus. Small amoun t mucous retention right maxillary sinus. Mucosal thickening of the ethmoids. Vasculature: Normal flow void. PITUITARY GLAND: Unremarkable. ORBITS: Unremarkable. IMPRESSION: Unremarkable MRI of the brain. DATA REPOSITORY:
--- NOTE | 2024-05-02 14:45 | W.INDIABCONS ---
Date of service: 05/02/24 Time of Service: 14:45 Diabetes Inpatient Consult Reason for Visit: routine consult - diabetes education and mgt DESCRIPTION/ASSESSMENT: Mr Coe admitted with hyperglycemia associated with HHS. Attempted visits with Mr Coe x 3 with finding him out of room at MRI, and then with PT and Pulmonology for consults. INTERVENTION: Pt was preparing for discharge. Was able to confirm his home medications for diabetes mgt but no diet history reviewed/assessed. PLAN: was able to briefly discuss outpatient diabetes education services I offer and he did take my card with contact info as he felt he could benefit from coming in with his . Will be available for support in the outpatient setting. Time Spent in Nutritional Counseling and Treatment: 5 min
[2024-05-02 15:11] VITALS: BP 111/72; PULSE 75; RESP 15; TEMP 36.7; O2SAT 97
[2024-05-02] MEDS: Cyanocobalamin 500 MCG TAB 1000 MCG PO (17:58)
[2024-05-02] MEDS: Lactated Ringers 1,000 ML 80 ML IV (18:06)
[2024-05-02 19:40] VITALS: BP 111/72; PULSE 83; RESP 18; TEMP 37; O2SAT 96
[2024-05-02] MEDS: Pramipexole 0.5 MG TAB 1 MG PO (19:43)
[2024-05-02] MEDS: Rosuvastatin 10 MG TAB 20 MG PO (19:43)
[2024-05-02] MEDS: Topiramate 25 MG TAB 50 MG PO (19:43)
[2024-05-02] MEDS: Enoxaparin 40 MG/0.4 ML SYR SC (19:44)
[2024-05-02] MEDS: Insulin Glargine 300 UNITS/3 ML PEN 20 UNITS SC (19:44)
[2024-05-02 23:37] VITALS: BP 118/72; PULSE 77; RESP 18; TEMP 36.3; O2SAT 98
[2024-05-03] MEDS: Acetaminophen 500 MG TAB 1000 MG PO ×3 (00:26→12:01)
[2024-05-03 05:36] VITALS: BP 128/85; PULSE 70; RESP 18; TEMP 36.2; O2SAT 97
[2024-05-03 06:16] LABS: Abs Immature Grans 0.08 10^3/uL (0.0-0.06); Absolute Basophil Count 0.07 10^3/uL (0.0-0.2); Absolute Eosinophil Count 0.31 10^3/uL (0.0-0.7); Absolute Lymphocyte Count 2.67 10^3/uL (1.2-3.4); Absolute Monocyte Count 0.56 10^3/uL (0.1-0.8); Absolute Neutrophil Count 4.45 10^3/uL (1.2-6.7); Basophils % 0.9 %; Eosinophils % 3.8 %; HCT 42.3 % (40.0-50.0); Lymphocytes % 32.8 %; MCH 28.6 pg (27.0-33.0); MCHC 33.1 % (32.0-36.0); MCV 87 fL (80-95); MPV 10.7 fL (8.0-11.0); Monocytes % 6.9 %; Neutrophils % 54.6 %; Platelet Count 167 10^3/uL (130-400); RBC 4.89 10^6/uL (4.36-5.78); RDW 13.5 % (11.8-14.1); RDW-SD 42.6 fL; WBC 8.14 10^3/uL (4.4-10.8)
[2024-05-03 06:47] LABS: ALT 17 U/L (16-63); AST 10 U/L (15-37); Albumin 3.1 g/dL (3.4-5.0); Alkaline Phosphatase 64 U/L (46-116); Anion Gap 11.3 mmol/L (3-11); BUN 9 mg/dL (7-18); Bilirubin, Total 0.23 mg/dL (0.2-1.0); CO2 22.7 mmol/L (21.0-32.0); CREATININE 0.9 mg/dL (0.70-1.30); Calcium 9.2 mg/dL (8.5-10.1); Chloride 106 mmol/L (98-107); Estimated GFR 100.24 (mL/min/1.73m2); Glucose 161 mg/dL (74-106); Potassium 3.6 mmol/L (3.5-5.1); Sodium 140 mmol/L (136-145); Total Protein 6.6 g/dL (6.4-8.2)
[2024-05-03 07:05] LABS: Vitamin B12 364 pg/mL (193-986)
[2024-05-03 07:13] VITALS: BP 126/73; PULSE 68; RESP 17; TEMP 36; O2SAT 97
[2024-05-03] MEDS: Metoprolol CR 100 MG TABCR 200 MG PO (08:20)
[2024-05-03] MEDS: metFORMIN C.R. 500 MG TABCR 1000 MG PO (08:20)
[2024-05-03] MEDS: Insulin Aspart 300 UNITS/3 ML PEN SC ×2 (08:20→12:02)
[2024-05-03] MEDS: Topiramate 25 MG TAB PO (08:21)
[2024-05-03] MEDS: Gemfibrozil 600 MG TAB PO (08:21)
[2024-05-03] MEDS: Aspirin E.C. 81 MG TABEC PO (08:21)
[2024-05-03] MEDS: DULoxetine 30 MG CAP 60 MG PO (08:21)
[2024-05-03] MEDS: Ranolazine 500 MG TABCR PO (08:22)
[2024-05-03] MEDS: buPROPion-CR 150 MG TABCR PO (08:22)
[2024-05-03] MEDS: Losartan 25 MG TAB 12.5 MG PO (08:22)
[2024-05-03] MEDS: Isosorbide Mononitrate 30 MG TABCR PO (08:22)
[2024-05-03] MEDS: Cyanocobalamin 500 MCG TAB 1000 MCG PO (08:23)
[2024-05-03] MEDS: Pantoprazole 40 MG TABCR PO (08:23)
[2024-05-03] MEDS: Sucralfate 1 GM TAB PO ×2 (08:24→12:01)
[2024-05-03] MEDS: Pregabalin 50 MG CAP PO (08:24)
[2024-05-03] MEDS: Lactulose 20 GM/30 ML CUP PO (08:25)
[2024-05-03] MEDS: Normal Saline Flush 10 ML SYR IVP (08:25)
[2024-05-03] MEDS: Pramipexole 0.5 MG TAB PO (08:26)
[2024-05-03] MEDS: Budesonide/Formoterol 80/4.5 6.9 GM 60 PUFF INH IH (08:26)
[2024-05-03 08:46] LABS: Ammonia 46 umol/L (11-32)
--- NOTE | 2024-05-03 09:43 | DSE_ITS ---
Date of service: 05/03/24 Time of Service: 09:46 DS: Diagnosis Discharge Diagnosis (1) AMS (altered mental status): Status: Acute (2) Hyperammonemia: Status: Acute (3) Metabolic encephalopathy: Status: Acute (4) Dehydration: Status: Acute (5) Hyperglycemia: Status: Acute (6) Diabetes mellitus, type II: Status: Chronic (7) Acute respiratory failure: Status: Acute (8) CAD (coronary artery disease): Status: Chronic (9) Hypertension: Status: Chronic (10) Hyperlipidemia: Status: Chronic (11) History of PSVT (paroxysmal supraventricular tachycardia): Status: Acute Discharge Plan Disposition Patient Disposition: Home W/Home Health Services Condition: Improving Discharge Details Reason For Visit: Metabolic Encephalopathy,Hyperglycemia,Dehydration Admit Date/Time: 04/30/24 16:56 Admit Provider: Camilo Schneider Attending Provider: Camilo Schneider Primary Care Provider: Coni Lim V Hospital Course Hospital Course: This 68-year-old male patient with past medical history of PSVT, diabetes mellitus, myocardial infarction of the inferior wall, cardiac stent placement, angina, hypertension, hyperlipidemia, GERD, depression, fibromyalgia and cervical radiculopathy, CVA with right-sided residual weakness presented to the ED at [facility] on 04/30/2024 via EMS with complaint of chest pain and altered mental status. The patient stated that he started feeling worse then the previous night in a.m. and went to the [facility] with the provider calling EMS. Dry mucous membranes, decreased Leeanne Coma Scale aphasia with decreased alertness and a [id number] blood sugar over 500 reported on arrival to the ED. Initial saturation in oxygen was 80% improving to mid 90s with 2 L of oxygen via nasal cannula supplementation. The workup in the ED was significant for sodium level of 132, glucose of 420 7251 without anion gap or acidosis, ketones were negative, ammonia was 45. Head CT was negative for any acute findings. Troponin was negative and EKG showed no acute injury. Chest x-ray question mild pulmonary venous congestion. In the ED the patient was treated with 2 L of crystalloid resulting in urinary output and improved alertness. The hospitalist was consulted and patient admitted to the medical surgical floor with telemetry for metabolic encephalopathy due to hypoglycemia and dehydration, acute respiratory failure due to metabolic encephalopathy. Repeated blood sugar after 1 L of IV fluid in the ED was 264 and no insulin was given. During the stay, the patient continued to have transient episodes of altered mental status with mostly left facial droop,right ptosis and uneven smile with lesser intensity of symptoms. Repeated ammonia was 55, lactulose oral was initiated. Repeated head CT showed no acute findings. The patient was on the sliding scale of lispro insulin and Lantus was added. Further IV fluid was supplemented. Recommended MRI completed on subsequent day was also negative. Triglycerides were found to be at 486 despite ongoing treatment with Crestor, Lopid and omega-3 ethyl esters were added. Hemoglobin A1C was 12?the patient had reported inability to obtain his Trulicity but reported compliance with all other medicines. The patient chronic conditions were treated as per his home medicine regimen. The patient will be discharge home on new Lantus SC and home dose of metformin. Imdur was held at discharge; it was last filled in July 2023. Major discrepancies seen in filling history at the pharmacy, med list obtained from [facility] and patient reconciliation med list completed with [facility] on arrival. This was discussed with Dr. Lim's RN at [facility] with recommendation for bubble pack medicines to promote compliance and correctness as the patient reported heavy supply of his prescribed meds in his cabinets at home. Recommendation given to the patient will discuss his medicine regimen with his PCP on his follow-up appointment; the patient will also bring the medicine supply and his cabinets to the office to be assisted in sorting them out. Recommendation given to patient to discuss the possibility of an echocardiogram with his primary care provider as his last study was completed in 2020. Patient also to discuss follow-up with neurology with primary care provider and the addition of GLP 1 receptor agonist to his regimen. Discussion with Dr. Lim regarding possible GI and neurology follow-up, home drug regimen clarification and bubble pack delivery for the medicines. Reinforcement given to the importance of the follow-up appointment with Dr. Lim as the patient had missed the previous follow-up. Discussed with Dr. Tucker Home Meds and New Rx's Prescriptions: New acetaminophen 500 mg Tablet 1,000 mg PO Q8H Qty: 30 0RF albuterol sulfate [Ventolin HFA] 90 mcg/actuation Hfa Aerosol Inhaler 2 puff inhalation Q4H PRN PRN (Reason: Wheezing) Qty: 6.7 0RF aspirin 81 mg Tablet,Delayed Release (Dr/Ec) 81 mg PO DAILY Qty: 10 0RF budesonide-formoterol [Symbicort] 80-4.5 mcg/actuation Hfa Aerosol Inhaler 1 puff inhalation BID Qty: 10.2 0RF gemfibrozil 600 mg Tablet 600 mg PO BID Qty: 20 0RF Rx Instructions: Please, discuss with PCP during f/u insulin glargine [Lantus Solostar U-100 Insulin] 100 unit/mL (3 mL) Insulin Pen 20 unit subcut HS Qty: 15 0RF lactulose 20 gram/30 mL Solution 20 g PO BID Qty: 1200 0RF metoprolol succinate 100 mg Tablet Extended Release 24 Hr 200 mg PO DAILY Qty: 10 0RF omega-3 acid ethyl esters [Lovaza] 1 gram Capsule 4 g PO DAILY Qty: 30 0RF pramipexole 0.5 mg Tablet 1 mg PO HS Qty: 20 0RF pramipexole 0.5 mg Tablet 0.5 mg PO DAILY Qty: 10 0RF rosuvastatin 10 mg Tablet 20 mg PO HS Qty: 10 0RF Continued ranolazine 500 mg tablet extended release 12 hr 500 mg PO BID Qty: 60 3RF losartan 25 mg Tablet 12.5 mg PO DAILY duloxetine [Cymbalta] 60 mg Capsule,Delayed Release(Dr/Ec) 60 mg PO BID sucralfate [Carafate] 1 gram tablet 1 gm PO QACHS simethicone [Gas Relief (simethicone)] 80 mg tablet,chewable 80 mg PO BID-QID PRN Patient Comments: not on pt list colchicine 0.6 mg tablet 0.6 mg PO BID PRN (Reason: gout flare) Patient Comments: 08/01/15 not using docusate sodium [Colace] 100 mg capsule 100 mg PO BID PRN polyethylene glycol 3350 [Miralax] 17 gram/dose powder 17 gm PO DAILY PRN pregabalin 50 mg capsule 50 mg PO TID Patient Comments: 06/04/23 per PCP med list [facility] nitroglycerin [Nitrostat] 0.4 MG tablet, sublingual 0.4 mg Sublingual PRN PRN cyclobenzaprine 10 MG tablet 10 mg PO HS PRN bupropion HCl 150 MG tablet extended release 12 hr 150 mg PO BID pantoprazole 40 MG tablet,delayed release (DR/EC) 40 mg PO BID metformin 1,000 mg tablet extended release 24hr 1,000 mg PO BID Qty: 60 0RF topiramate 25 mg tablet See Rx Instructions PO BID Qty: 30 0RF Rx Instructions: 25mg AM and 50mg PM orally twice a day; 25 mg in AM, 50 mg PM. Held prochlorperazine maleate 10 mg Tablet 10 mg PO Q8H PRN Hold Instructions: Resume on 05/12/24. Please, discuss with PCP during f/u gabapentin 300 mg Capsule 900 mg PO TID Hold Instructions: Resume on 05/12/24. Please, discuss with PCP during f/u hydroxyzine pamoate 50 mg capsule 25 mg PO Q4H PRN Qty: 90 Hold Instructions: Resume on 05/12/24. Please, discuss with PCP during f/u Patient Comments: 08/01/15 not recently Rx Instructions: prn headache pramipexole [Mirapex] 0.5 mg tablet 0.5 mg PO BID Hold Instructions: Resume on 05/12/24. Please, discuss with PCP during f/u Rx Instructions: 0.5mg AM and 1mg PM orally , 1 tab in am, 2 tabs at HS aspirin [Adult Aspirin Regimen] 81 mg tablet,delayed release (DR/EC) 81 mg PO DAILY Hold Instructions: Resume on 05/12/24. Please, discuss with PCP during f/u metoprolol succinate 200 mg tablet extended release 24 hr See Rx Instructions .ROUTE .COMPLEX Qty: 90 3RF Hold Instructions: Resume on 05/12/24. Please, discuss with PCP during f/u Dose Instruction: TAKE ONE TABLET BY MOUTH DAILY AT 9AM Rx Instructions: TAKE ONE TABLET BY MOUTH DAILY AT 9AM glucagon 3 mg/actuation spray,non-aerosol 3 mg intranasal ONCE Hold Instructions: Resume on 05/12/24. Please, discuss with PCP during f/u Rx Instructions: as a single dose budesonide-formoterol 80-4.5 mcg/actuation HFA aerosol inhaler 1 inh inhalation BID Hold Instructions: Resume on 05/12/24. Please, discuss with PCP during f/u rosuvastatin [Crestor] 10 MG tablet 20 mg PO HS Hold Instructions: Resume on 05/12/24. Please, discuss with PCP during f/u Discontinued albuterol sulfate [ProAir HFA] 90 mcg/actuation HFA aerosol inhaler 2 puff IH Q4H PRN (Reason: shortness of breath or wheezing) Discharge Instructions Stand Alone Forms: Nursing Discharge Form Referrals: Coni Lim MD [Primary Care Provider] - 05/12/24 10:00 am Activity:: Activity as Tolerated Equipment/Supplies:: Walker Diet:: heart healthy diabetic Discharge Orders Discharge Orders: Discharge Order (Routine); Ordered 05/03/24 Ordered By: Lisa Plummer DS: Summary Time Spent with Patient providing and/or coordinating discharge services: Greater than 30 minutes Status at Discharge Functional status at discharge: uses cane/walker Overall status at discharge: patient is progressing back to baseline Mental Status: mental status grossly normal Speech and Movement: speech and movement normal Mood: congruent mood Affect: normal affect Quality:SDOH Health Related Social Needs: Health related social needs transpo insecurity Exam Narrative Exam Narrative: Constitutional The patient is w/o acute distress HENMT: Facial structures are intact, right sided face numbness- chronic Eyes: Well aligned Neuro:alert and oriented X3 . Resp: Normal respiratory pattern, unlabored breathing,clear upper lung bilaterally w diminished bases-improving w deep breathing Cardio: regular rhythm, S1, S, bilateral radial and dorsalis pedis pulses are positive GI: Abdomen is not distended, soft and non tender, bowel sounds are present Extremities: slight weakness to the right more so to RLE s/p past CVA Psych: RASS 0, congruent mood and normal affect. Psych Mental Status: mental status grossly normal Speech and Movement: speech and movement normal Mood: congruent mood Affect: normal affect DS: Data Vitals/I&O Vitals and I&O: Vital Signs Temperature 36.0 C L 05/03/24 07:13 Temperature Source Skin 05/03/24 07:13 Pulse 68 05/03/24 07:13 Pulse 68 04/30/24 18:01 Respiratory Rate 17 05/03/24 07:13 Respiratory Effort Short of Breath 04/30/24 18:15 Respiratory Depth Normal 04/30/24 18:15 Respiratory Pattern Normal 04/30/24 18:15 Blood Pressure 126/73 05/03/24 07:13 Blood Pressure Mean 71 04/30/24 18:01 Blood Pressure Position Sitting 04/30/24 13:39 Pulse Oximetry 97 05/03/24 07:13 Oxygen Delivery Method Room Air 05/03/24 07:13 Oxygen Flow Rate 0 05/03/24 07:13 Pain Level 0 05/03/24 07:13 Comment New onset pain rt facial from moravian to jaw. 05/01/24 11:14 Comment RA 04/30/24 16:46 Intake & Output 05/02/24 05/02/24 05/03/24 11:59 23:59 11:59 Intake Total 540 / 1710 1170 / 1710 500 / 500 Output Total 700 / 700 Balance 540 / 1010 470 / 1010 500 / 500 Weight 108.4 kg 107.7 kg Intake: IV 60 / 60 20 / 20 Oral 480 / 1650 1170 / 1650 480 / 480 Output: Urine 700 / 700 Other: Urine Color Yellow Yellow Urine Appearance Cloudy Urine Odor Normal Normal Comment Patient voided in toilet unmeasured amount. Patient voided unmeasured amount in toilet. pT stated he voided. Stool Size Moderate Moderate Moderate Stool Characteristics Soft Liquid Liquid Liquid Brown Brown Voiding Methods Toilet Toilet Data Completed and Pending Labs on day of discharge: Labs from last 24 hours 05/03/24 05/03/24 05/03/24 Unknown 08:25 05:40 WBC 8.14 RBC 4.89 Hgb 14.0 Hct 42.3 MCV 87 MCH 28.6 MCHC 33.1 RDW 13.5 Plt Count 167 MPV 10.7 Immature Gran % 1.0 Neutrophils % 54.6 Lymphocytes % 32.8 Monocytes % 6.9 Eosinophils % 3.8 Basophils % 0.9 Nucleated RBC % 0.0 Absolute Neutrophils 4.45 Absolute Lymphocytes 2.67 Absolute Monocytes 0.56 Absolute Eosinophils 0.31 Absolute Basophils 0.07 Sodium 140 Potassium 3.6 Chloride 106 Carbon Dioxide 22.7 Anion Gap 11.3 H BUN 9 Creatinine 0.9 Est GFR (CKD-EPI 2020) 100.24 Glucose 161 H Calcium 9.2 Total Bilirubin 0.23 AST 10 L ALT 17 Alkaline Phosphatase 64 Ammonia 46 H Total Protein 6.6 Albumin 3.1 L LDL Cholesterol Direct Vitamin B12 364 Add-On Test Request TNP 05/02/24 14:45 WBC RBC Hgb Hct MCV MCH MCHC RDW Plt Count MPV Immature Gran % Neutrophils % Lymphocytes % Monocytes % Eosinophils % Basophils % Nucleated RBC % Absolute Neutrophils Absolute Lymphocytes Absolute Monocytes Absolute Eosinophils Absolute Basophils Sodium Potassium Chloride Carbon Dioxide Anion Gap BUN Creatinine Est GFR (CKD-EPI 2020) Glucose Calcium Total Bilirubin AST ALT Alkaline Phosphatase Ammonia Total Protein Albumin LDL Cholesterol Direct Cancelled Vitamin B12 Add-On Test Request PFSH All Active Problems (Updated 05/03/24 @ 11:44 by Lisa Plummer APRN) History of PSVT (paroxysmal supraventricular tachycardia) (Acute) Acute respiratory failure (Acute) Metabolic encephalopathy (Acute) Hyperammonemia (Acute) Dehydration (Acute) Hyperglycemia (Acute) AMS (altered mental status) (Acute) Thyroid nodule (Acute) Hyperplastic colon polyp (Acute) Tubular adenoma of colon (Acute) CAD (coronary artery disease) (Chronic) a. LAD stent at [facility] 2012 b. Restenosis of LAD and two more stents to LAD at [facility] 01/2014 c. 50% proximal RCA lesion d. Recurrent angina on Ranolazine e. Normal Rudy scan 08/2014 Tobacco abuse (Chronic) History of TIA (transient ischemic attack) (Chronic) Obesity (Chronic) Diabetes mellitus, type II (Chronic) Hypertension (Chronic) Hyperlipidemia (Chronic) Atherosclerotic cardiovascular disease (Acute) Atypical angina (Acute) Screening for colon cancer (Acute) Encounter for colorectal cancer screening (Acute) Medical History Encephalopathy 04/08/23 with syncope, [facility] ER intubated to [facility] d/c 04/09/23 [facility] Hemiplegic migraine (03/21/15) Migraine headache with aura (03/21/15) Medication overuse headache (03/21/15) Knee pain Diabetes mellitus Ketoacidosis due to secondary diabetes mellitus Low back pain Asthma COPD (chronic obstructive pulmonary disease) Abscess of right groin Dental infection Discharge planning issues Hypomagnesemia Ileitis Hematuria Smoker Myocardial infarction, inferior wall 2012 Hemiplegic migraine With intractable migraine, so stated, without mention of status migrainosus Postural lightheadedness Gastropathy Duodenitis Syncope Left cervical radiculopathy Gastroparesis diabeticorum RLS (restless legs syndrome) Tachycardia, paroxysmal Myalgia Leg pain, right Family history of colon cancer Reaction, situational Headache Acute diarrhea Abdominal pain Hypotensive episode Diverticulitis Peripheral neuropathy Palpitations Chronic pain Knee pain, left Hip pain, right Cervicalgia Shoulder pain, left Depression H/O: gout GERD (gastroesophageal reflux disease) Fibromyalgia Thyroid nodule Cholelithiasis a. cholecystectomy Surgical History Hx of discectomy History of arthroscopic surgery of shoulder Hx of tonsillectomy History of cholecystectomy History of knee surgery History of colonoscopy (~09/2021) History of coronary artery stent placement H/O surgical procedure a. cath and stents b. cholecystectomy c. back surgery Family History Other Cancer Colon cancer Social History Smoking/Tobacco Use Status: Current every day Tobacco Type: cigarettes Smoking risk assessment performed?: Yes Alcohol Intake: former Drug use: Daily Substance use type: marijuana Details: 2-3 joints/day Household members: spouse Housing: house Number of Children: 2 current occupation: Disabled Current gender identity: male What type of physical activity do you participate in: walking, independent ambulation and additional Details: work at home (outside work) Do you feel safe at home: Yes Do you feel safe in your relationship?: Yes Time Spent with Patient Time Spent with Patient: >85 minutes Time was spent: preparing to see the patient(eg.review tests), obtaining and/or reviewing separately otained hiistory, ordering medications,tests, procedures, referring, communicating with other health ostomy care nurse, indepentently interpreting results, counseling the patient and care coordination
[2024-05-03 11:08] VITALS: BP 118/81; PULSE 82; RESP 17; TEMP 35.8; O2SAT 96
--- NOTE | 2024-05-03 11:58 | PTTR_ITS ---
PT Notes Visit Reasons: Metabolic Encephalopathy,Hyperglycemia,Dehydration Inpatient Physical Therapy Treatment Note [facility] Date: 05/03/2024 PRECAUTIONS: Standard, telemetry in place, SUBJECTIVE: Patient reports feeling better today but still dizzy at times. He reports he may be going home today. He states he thinks he may do better at home. OBJECTIVE: Patient alert male sitting in chair with telemetry in place. Patient agreeable to participate in session? PAIN: Denies VITALS: ? Pre-Treatment: 118/81 sit; stand 98/63 ? Post-Treatment: sit 108/75 Therapeutic Activities (42426): Direct one-on-one instruction in dynamic activities to improve functional performance. ? BED MOBILITY/TRANSFERS? Rolling L/R: Independent Supine-sit: Supervision with head of bed up? Sit-stand: SBA? Stand-sit: SBA ? Bed-Chair: SBA with FWW ? x 4 trials? Chair-bed: SBA with FWW x 4 trials Provided skilled cues and instruction on performance and technique throughout. Direct one-on-one instruction and skilled instruction in: [] employing an assistive device [] modified weight-bearing status [] movement sequencing [X] turning and movement with proper form [X] Provided verbal cues for equipment management and technique [] Provided instruction in gait pattern [X] Patient education regarding pacing and breathing techniques to maxim ize activity tolerance? GAIT? Assistive Device: FWW? Weight bearing: Full Assist: CGA ? Distance: 30 feet x1; 20 ft x1 ? Deviation:pt demonstrates slow methodical claudia BLE. pt demonstrates increase lateral weight shift, right lower extremity externally rotated for stability and during swing phase.? Neuromuscular Re-education ([id number]): Activities that facilitate re-education of movement balance, posture, coordination, and proprioception or kinesthetic sense, requiring skilled tactile and verbal cues ? Exercises/techniques: stand dynamic reaching mid thigh to shoulder height with 1UE support within and outside MIKE 4 inches with CGA ? ASSESSMENT:?Pt demonstrate improved motor coordination with transfers and ambulation this session until onset of tingling in RUE and LE after ambulating 25 feet. He was able to take steps for 5 more feet then sat. In sitting he presented with slow speech and reported lightheadedness. BP as stated above. Symptoms of tingling resolved after sitting for 6 mins. PLAN: Continued skilled PT for strengthening, balance, transfers, gait and stairs training TREATMENT CODE/TIME: First session [id number], [id number] DISCHARGE RECOMMENDATION: SNF for short-term rehab versus PT
--- NOTE | 2024-05-03 14:21 | PDOC.CMDIS ---
Date of service: 05/03/24 Time of Service: 14:21 LACE Index Scoring Tool Questions: Length of Stay (in days): 3 Was the patient admitted via the E.D.?: Yes Comorbidities: Diabetes w/o Complication and Any Tumor E.D. Visits: 0 Answers: Total Score: 9 Risk of Readmission: Low Risk Care Management Discharge Plan Reason for Hospitalization: Metabolic encephalopathy, hyperglycemia, dehydration Discharge Plan: Romeo will return home with new orders for HH/PT/OT/RN, he will follow up with his PCP and plan of care as prescribed. He will transport via private vehicle with family. Patient/Family Education Needs: Review discharge instructions, discuss Ask Me Three. Services Needed at Discharge: Home Health Care Services (RN, PT, OT) SDOH Health Related Social Needs: Health related social needs transpo insecurity Health related social needs: transportation insecurity(Z59.82) Referrals and interventions: RCT offered; family providing transport.
--- NOTE | 2024-05-03 14:40 | PDOC.HHF2F_ITS ---
Home Health Referral Home Health Orders Clinical synopsis of why skilled professionals are needed: This 68-year-old male patient with past medical history of PSVT, diabetes mellitus, myocardial infarction of the inferior wall, cardiac stent placement, angina, hypertension, hyperlipidemia, GERD, depression, fibromyalgia and cervical radiculopathy, CVA with right-sided residual weakness presented to the ED at [facility] on 04/30/2024 via EMS with complaint of chest pain and altered mental status. The patient stated that he started feeling worse then the previous night in a.m. and went to the [facility] with the provider calling EMS. Dry mucous membranes, decreased [place] Coma Scale aphasia with decreased alertness and a [id number]-[id number] blood sugar over 500 reported on arrival to the ED. Initial saturation in oxygen was 80% improving to mid 90s with 2 L of oxygen via nasal cannula supplementation. The workup in the ED was significant for sodium level of 132, glucose of 420 7251 without anion gap or acidosis, ketones were negative, ammonia was 45. Head CT was negative for any acute findings. Troponin was negative and EKG showed no acute injury. Chest x-ray question mild pulmonary venous congestion. In the ED the patient was treated with 2 L of crystalloid resulting in urinary output and improved alertness. The hospitalist was consulted and patient admitted to the medical surgical floor with telemetry for metabolic encephalopathy due to hypoglycemia and dehydration, acute respiratory failure due to metabolic encephalopathy. Repeated blood sugar after 1 L of IV fluid in the ED was 264 and no insulin was given. During the stay, the patient continued to have transient episodes of altered mental status with mostly left facial droop,right ptosis and uneven smile with lesser intensity of symptoms. Repeated ammonia was 55, lactulose oral was initiated. Repeated head CT showed no acute findings. The patient was on the sliding scale of lispro insulin and Lantus was added. Further IV fluid was supplemented. Recommended MRI completed on subsequent day was also negative. Triglycerides were found to be at 486 despite ongoing treatment with Crestor, Lopid and omega-3 ethyl esters were added. Hemoglobin A1C was 12?the patient had reported inability to obtain his Trulicity but reported compliance with all other medicines. The patient chronic conditions were treated as per his home medicine regimen. The patient will be discharge home on new Lantus SC and home dose of metformin. Imdur was held at discharge; it was last filled in July 2023. Major discrepancies seen in filling history at the pharmacy, med list obtained from [facility] and patient reconciliation med list completed with [facility] on arrival. This was discussed with Dr. Lim's RN at [facility] with recommendation for bubble pack medicines to promote compliance and correctness as the patient reported heavy supply of his prescribed meds in his cabinets at home. Recommendation given to the patient will discuss his medicine regimen with his PCP on his follow-up appointment; the patient will also bring the medicine supply and his cabinets to the office to be assisted in sorting them out. Recommendation given to patient to discuss the possibility of an echocardiogram with his primary care provider as his last study was completed in 2020. Patient also to discuss follow-up with neurology with primary care provider and the addition of GLP 1 receptor agonist to his regimen. Discussion with Dr. Lim regarding possible GI and neurology follow-up, home drug regimen clarification and bubble pack delivery for the medicines. Reinforcement given to the importance of the follow-up appointment with Dr. Lim as the patient had missed the previous follow-up. Medical diagnosis necessitation home health referral: Metabolic encephalopathy, uncontrolled diabetes with new drug regimen with Lantus, hyperglycemia, hyperammonemia, Registered Nurse: Check all that apply Instruct on new or changed medication(s)/assess compliance: Ordered (Patient has a cabinet-full of meds at home- not all are current) Assess for exacerbation of medical condition, instruct patient/caregivers on signs and symptoms to report for early detection: Ordered Physical Therapist: Check all that apply Increase strength & endurance for safe mobility at home: Ordered To design/establish home maintenance program: Ordered Fall reduction therapy program for patient with history of frequent falls: Ordered Home safety evaluation and teaching/gait training including stair management (if applicable): Ordered Better Breathing Program: Ordered Home Bound Status Describe why leaving home would require a considerable and taxing effort: Requires frequent rest periods and Safety Concerns: describe (dizziness ) Encounter Date and Reason: I certify that a FTF encounter for this patient was performed on May 03, 2024 and that such encounter was related to the primary reason the patient requires home health services. The encounter was conducted in the following manner: * By me as the certifying physician, SQL SERVER DBA, PA or * By an inpatient physician, SQL SERVER DBA or PA during an inpatient stay who communicated findings to me, Certification And Authentication I certify that I composed the above information based on my clinical judgment relating to this patient's medical condition and, if applicable, clinical findings communicated to me by the NPP or inpatient physician who performed the FTF encounter. Name of Provider that will be monitoring home health services: Coni Lim
== END 2024-05-03 14:44 | disposition home health service (06) | DRG 637 ==
LOC: ER 17:42 → MS 18:17
PROVIDERS: Internal Medicine; Nurse Practitioner Acute Care; Admitting Provider Family Medicine; Emergency Provider Emergency Medicine; PCP Family Medicine; Visit Provider Family Medicine
DX: E11.00 Type 2 diabetes mellitus with hyperosmolarity without nonketotic hyperglycemic-hyperosmolar coma (NKHHC) (principal); G93.41 Metabolic encephalopathy; J96.00 Acute respiratory failure, unspecified whether with hypoxia or hypercapnia; E72.20 Disorder of urea cycle metabolism, unspecified; I47.19 Other supraventricular tachycardia; I69.351 Hemiplegia and hemiparesis following cerebral infarction affecting right dominant side; E86.0 Dehydration; I25.10 Atherosclerotic heart disease of native coronary artery without angina pectoris; I10 Essential (primary) hypertension; I25.2 Old myocardial infarction; Z95.5 Presence of coronary angioplasty implant and graft; I25.119 Atherosclerotic heart disease of native coronary artery with unspecified angina pectoris; E78.5 Hyperlipidemia, unspecified; M79.7 Fibromyalgia; K21.9 Gastro-esophageal reflux disease without esophagitis; F32.A Depression, unspecified; E04.1 Nontoxic single thyroid nodule; F17.210 Nicotine dependence, cigarettes, uncomplicated; E66.9 Obesity, unspecified; J44.9 Chronic obstructive pulmonary disease, unspecified; E11.43 Type 2 diabetes mellitus with diabetic autonomic (poly)neuropathy; K31.84 Gastroparesis; Z79.85 Long-term (current) use of injectable non-insulin antidiabetic drugs; M54.12 Radiculopathy, cervical region
CPT/HCPCS: 00123; 36415; 36416; 80048; 80053; 80061; 80307; 82550; 82805; 82962; 83690; 83721; 86850; 86900; 86901; 93005; 94640; 96360; 96361; 97112; 97161; 97530; 99285; J1650; 70450; 70551; 71045; 80320; 80329; 81003; 82140; 82607; 83036; 83735; 83880; 84443; 84484; 85025; 85610; 85730; 93010; 94664; 99223; 99233; 99239; J1815; J2060; J3490

== ENCOUNTER 2024-05-17 16:02 | Emergency (ER) | payer OTHER, SELFPAY ==
[2024-05-17] VITALS (51 sets, daily range): BP systolic 79–112; BP diastolic 31–69; PULSE 68–78; RESP 10–20; TEMP 36.1; O2SAT 84–99
--- NOTE | 2024-05-17 16:00 | RT.EKG_ITS ---
APPROVED REPORT Exam: Resting ECG Reason for Exam: chest pain Patient Location: E HR:73 bpm ECG Measurements Heart Rate 73 AXIS MD 164 P 21 QRSd 97 QRS 15 QT 384 T 45 QTc 424 Conclusion Sinus rhythm...normal P axis, V-rate 60- 99
--- OUTSIDE RECORDS SUMMARY | 2024-05-17 16:06 | XMS_ITS | Encounter Summary ---
[place] [address] Care Team Providers Care Unit Trust Manager Name Role Phone Coni Lim MD Primary Care Provider [phone] Reason for Referral * Consultation (Routine) - Closed Specialty Diagnoses / Procedures Referred By Ruby garvin Referred To Contact General Surgery Diagnoses Nontoxic single thyroid nodule Kevin Landaverde MD [address] [place] [address] [facility] [address] [place] [address] Referral ID Status Reason Start Date Expiration Date V isits Requested Visits Authorized [id number] Closed Consult, Test & Treat 01/30/2022 01/30/2023 1 1 Encounter Details Date Type Department Care Team (Late st Contact Info) Description 01/30/2022 Transcribe [place] [id number] Kevin Landaverde MD [address] [place] [address] [place], [place] [id number] Nontoxic single thyroid nodule Social History Tobacco [...] goiter documented in this encounter Care Teams Unit Trust Manager Relationship Specialty Start Date End Date Coni Lim MD [address] [place] [address] PCP - General 07/16/10 documented as of this encounter
--- OUTSIDE RECORDS SUMMARY | 2024-05-17 16:06 | XMS_ITS | Encounter Summary ---
Author Organization [facility] Address [facility] [place] [address] Care Team Providers Care Barrel Cap Setter Name Role Phone Coni Lim MD Primary Care Provider [phone] Encounter Details Date Type Department Care Team (Late st Contact Info) Description 11/22/2021 Ancillary Procedure Radiology Library at [facility] [place] [address] Cecilia Maza MD [facility] [place] [address] Social History Tobacco Use Types Packs/Day Years [...] Ultrasound Study (11/22/2021 12:00 AM EDT) Narrative [facility] - 02/25/2022 4:20 PM EDT This exam is auto-finalizing. It's purpose is for storage only. Cecilia Maza MD IMG FILM LIBRARY ORDERABLES DH [place], [place] documented in this encounter Visit Diagnoses Not on filedocumented in this encounter Care Teams Barrel Cap Setter Relationship Specialty Start Date End Date Coni Lim MD [address] [place] [address] PCP - General 07/16/10 documented as of this encounter
--- OUTSIDE RECORDS SUMMARY | 2024-05-17 16:06 | XMS_ITS | Encounter Summary ---
Author Organization [facility] Address [facility] [place] [address] Care Team Providers Care Market Reporter Name Role Phone Coni Lim MD Primary Care Provider [phone] Encounter Details Date Type Department Care Team (Late st Contact Info) Description 04/07/2023 7:40 PM EDT Ancillary Procedure Radiology Library at [facility] [place] [address] Patel Griggs MD [facility] [place] [address] Social History Tobacco Use Types Packs/Day Years [...] And Spine (04/07/2023 7:25 PM EDT) Narrative [facility] - 04/07/2023 7:25 PM EDT This exam is auto-finalizing. It's purpose is for storage only. Patel Griggs MD [facility] FILM LIBRARY ORD ERABLES DH [place], [place] documented in this encounter Visit Diagnoses Not on filedocumented in this encounter Care Teams Market Reporter Relationship Specialty Start Date End Date Coni Lim MD [address] [place] [address] PCP - General 07/16/10 documented as of this encounter
--- OUTSIDE RECORDS SUMMARY | 2024-05-17 16:06 | XMS_ITS | Encounter Summary ---
Author Organization [facility] Address [facility] [place] [address] Care Team Providers Care Technical Consultant Name Role Phone Coni Lim MD Primary Care Provider [phone] Encounter Details Date Type Department Care Team (Late st Contact Info) Description 04/07/2023 7:35 PM EDT Ancillary Procedure Radiology Library at [facility] [place] [address] Patel Griggs MD [facility] [place] [address] Social History Tobacco Use Types Packs/Day Years [...] Abdomen Pelvis (04/07/2023 7:23 PM EDT) Narrative [facility] - 04/07/2023 7:23 PM EDT This exam is auto-finalizing. It's purpose is for storage only. Patel Griggs MD [facility] FILM LIBRARY ORD ERABLES DH [place], [place] documented in this encounter Visit Diagnoses Not on filedocumented in this encounter Care Teams Technical Consultant Relationship Specialty Start Date End Date Coni Lim MD [address] [place] [address] PCP - General 07/16/10 documented as of this encounter
--- OUTSIDE RECORDS SUMMARY | 2024-05-17 16:06 | XMS_ITS | Encounter Summary ---
[place] [address] Care Team Providers Care Accounting Manager Controller Name Role Phone Coni Lim MD Primary Care Provider Reason for Referral * Audiology Exam (Routine) - Authorized Specialty Diagnoses / Procedures Referred By Contac t Referred To Contact Audiology Diagnoses Bilateral hearing loss, unspecified hearing loss type Coni Lim MD [address] [place] [address] [facility] [address] [place] [id number] Referral ID Status Reason Start Date Expiration Date Visits Requested Visits Authorized [id number] Authorized Specialty Service Requested PCP Updated and/or Approved 12/04/2023 06/06/2024 6 6 Encounter Details Date Type Department Care Team (Latest Contact Info) Description 12/24/2023 Transcribe Orders [facility] Incoming Referrals [phone] Coni Lim MD [address] [place], [place] [id number] Bilateral hearing loss, unspecified hearing loss type [...] type documented in this encounter Care Teams Accounting Manager Controller Relationship Specialty Start Date End Date Coni Lim MD [address] [place] [address] PCP - General 07/16/10 documented as of this encounter
--- OUTSIDE RECORDS SUMMARY | 2024-05-17 16:06 | XMS_ITS | Encounter Summary ---
Author Organization [facility] [place] [address] Care Team Providers Care Personal Trainer Name Role Phone Coni Lim MD Primary Care Provider [phone] Encounter Details Date Type Department Care Team (Late st Contact Info) Description 11/25/2021 Telephone Cardiology at [address] [address] Yessy Pugh Social History Tobacco Use Types [...] they received the ABSORB stent. Certified mail #[id number] documented in this encounter Plan of Treatment Not on file documented as of this encounter Visit Diagnoses Not on filedocumented in this encounter Care Teams Personal Trainer Relationship Specialty Start Date End Date Coni Lim MD [address] [place] [address] PCP - General 07/16/10 documented as of this encounter
--- OUTSIDE RECORDS SUMMARY | 2024-05-17 16:06 | XMS_ITS | Encounter Summary ---
Author Organization [facility] Address [facility] [place] [address] Care Team Providers Care Member Of The Legislative Council Name Role Phone Coni Lim MD Primary Care Provider [phone] Encounter Details Date Type Department Care Team (Late st Contact Info) Description 04/07/2023 Telephone [place] [address] Patel Griggs MD [facility] [place] [address] Social History Tobacco Use Types Packs/Day Years [...] EDT Neurology Attending I spoke with caregivers [facility]. There is no capacity here to accept [...] recommended trying to transfer the patient to [facility] Patel Griggs MD Department [place] [address] Pager [phone] Email: [email or web address] documented in this encounter Plan of Treatment Not on file documented as of this encounter Visit Diagnoses Not on filedocumented in this encounter Care Teams Member Of The Legislative Council Relationship Specialty Start Date End Date Coni Lim MD [address] [place] [address] PCP - General 07/16/10 documented as of this encounter
--- OUTSIDE RECORDS SUMMARY | 2024-05-17 16:06 | XMS_ITS | Encounter Summary ---
Author Organization [facility] Address [facility] [place] [address] Care Team Providers Care Cork Wirer Name Role Phone Coni Lim MD Primary Care Provider [phone] Encounter Details Date Type Department Care Team (Late st Contact Info) Description 04/07/2023 7:25 PM EDT Ancillary Procedure Radiology Library at [facility] [place] [address] Patel Griggs MD [facility] [place] [address] Social History Tobacco Use Types Packs/Day Years [...] DX Chest (04/07/2023 7:20 PM EDT) Narrative RAD - 04/07/2023 7:20 PM EDT This exam is auto-finalizing. It's purpose is for storage only. Patel Griggs MD IMG FILM LIBRARY ORD ERABLES DH [facility] [place], [place] documented in this encounter Visit Diagnoses Not on filedocumented in this encounter Care Teams Cork Wirer Relationship Specialty Start Date End Date Coni Lim MD [address] [place] [address] PCP - General 07/16/10 documented as of this encounter
--- OUTSIDE RECORDS SUMMARY | 2024-05-17 16:06 | XMS_ITS | Encounter Summary ---
Author Organization [facility] Address [facility] [place] [address] Care Team Providers Care Evp Global Product Leadership Name Role Phone Coni Lim MD Primary Care Provider [phone] Encounter Details Date Type Department Care Team (Late st Contact Info) Description 01/13/2022 Ancillary Procedure Radiology Library at [facility] [place] [address] Cecilia Maza MD [facility] [place] [address] Social History Tobacco Use Types Packs/Day Years [...] Ultrasound Study (01/13/2022 12:00 AM EDT) Narrative [facility] - 02/25/2022 4:21 PM EDT This exam is auto-finalizing. It's purpose is for storage only. Cecilia Maza MD IMG FILM LIBRARY ORDERABLES DH [place], [place] documented in this encounter Visit Diagnoses Not on filedocumented in this encounter Care Teams Evp Global Product Leadership Relationship Specialty Start Date End Date Coni Lim MD [address] [place] [address] PCP - General 07/16/10 documented as of this encounter
--- OUTSIDE RECORDS SUMMARY | 2024-05-17 16:06 | XMS_ITS | Encounter Summary ---
Author Organization [facility] Address [facility] [place] [address] Care Team Providers Care Press Feeder Broomcorn Name Role Phone Coni Lim MD Primary Care Provider [phone] Encounter Details Date Type Department Care Team (Late st Contact Info) Description 04/07/2023 7:30 PM EDT Ancillary Procedure Radiology Library at [facility] [place] [address] Patel Griggs MD [facility] [place] [address] Social History Tobacco Use Types Packs/Day Years [...] And Spine (04/07/2023 7:22 PM EDT) Narrative [facility] - 04/07/2023 7:22 PM EDT This exam is auto-finalizing. It's purpose is for storage only. Patel Griggs MD [facility] FILM LIBRARY ORD ERABLES DH [place], [place] documented in this encounter Visit Diagnoses Not on filedocumented in this encounter Care Teams Press Feeder Broomcorn Relationship Specialty Start Date End Date Coni Lim MD [address] [place] [address] PCP - General 07/16/10 documented as of this encounter
--- OUTSIDE RECORDS SUMMARY | 2024-05-17 16:06 | XMS_ITS | Encounter Summary ---
Author Organization Formerly [facility] Address [facility] [place] [address] Care Team Providers Care Delivery Rep Name Role Phone Coni Lim MD Primary Care Provider [phone] Reason for Visit * Auth/Cert Specialty Diagnoses / Procedures Referred By Ruby garvin Referred To Contact Diagnoses Unstable angina Chest pain Procedures EMERGENCY IPI Referral ID Status Reason Start Date Expiration Date Visits Re quested Visits Authorized [id number] 1 1 Encounter Details Date Type Department Care Team (Late st Contact Info) Description 06/10/2021 9:00 AM EDT - 06/10/2021 10:00 AM EDT [place] [id number] Jose Trimble MD [facility] [place] [address] CARDIAC CATHETERIZATION Social History Tobacco Use Types [...] Romeo Coelho Patient Age: 56 y.o. Language: Filipino Race: White Ethnicity: Not nor Admit date: 2021 Discharge date and time: 06/10/2021 5:40 PM Attending Physician: Supa Alegria MD Discharge Physician: Supa Alegria MD Follow-up Recommendations for Providers: Romeo Coelho is a 56 year old male admitted for chest pain concerning for unstable angina. 1. ASCVD / Microvascular angina: [facility] 06/10/21 without obstructive CAD and with patent [...] Escobar APRN Sarah Hansen, PA-C Cardiovascular Medicine [phone] Discharge Diagnoses (Hospital Problems) and Secondary Diagnoses (Chronic Problems): Active Hospital Problems Diagnosis ??? Unstable angina ??? Chest pain ??? Smoker ??? CAD (coronary artery disease) ??? Dyslipidemia ??? HTN (hypertension) ??? DM (diabetes mellitus) Resolved Hospital Problems No resolved problems to display. Active Non-Hospital Problems Diagnosis ??? Hx-TIA (transient ischemic attack) ??? GERD (gastroesophageal reflux disease) ??? Conjunctival lesion Operations/Major Procedures: [facility] 06/10/21 Hemodynamics: Left Heart Pressures Resting: Syst [...] 2011, LAD stent in 2012, RCA stent [id number]. His most recent coronary angiogram (2019) showed [...] since 2011 and last JACINDA to RCA [id number]. Last [facility] 2018 with residual ~40% LAD and RCA [...] SOB prior to discharge. Follow up with glazier helper, Dr. Gutierrez, was arranged. ?? Right??groin cellulitis, [...] CTA chest was made. ?? Diabetes mellitus, uex-fdainzk-yhgwtsdlf, uncontrolled A1c of 9.4%. Home metformin held for cath. Additional coverage with sliding scale and meal associated insulin. Hold metformin for 48 hours after contrast exposure. Diabetes management team consulted.Recommendations to continue metformin 1000mg BID and further management per PCP. Could consider SGLT2i. ?? HTN BP trend 12 hours prior to discharge were BP: (102-134)/(65-81) . He was continued on home .5mg daily, metoprolol succinate 100mg daily and Imdur [...] at [facility] and [facility]. Discharge Conditions/Prognosis: Alert and oriented x 3, ambulatory-independent. Ambulated without chest pain or SOB prior to discharge. Discharge to: Home. Updated Allergies/ADRs: Allergies Allergen Reactions ??? Thallium-201 Severe cardiac event ??? Lisinopril Other (See Comments) cough ??? Paper Tape [Adhesive Tape] Rash Immunizations Given this Hospitalization: Immunization History Administered Date(s) Administered ??? Influenza PF, Split 07/30/2013 ??? Influenza Vaccine (Novel) [id number], Injectable 05/24/2009 ??? Influenza Vaccine w/Preservative, Split [...] of 8AM-5PM please call the Cardiology Clinic [phone] to speak with a nurse. All other hours please call the Hospital [facility] [phone] and ask to speak to the portrait artist on-call. Return to work: One week Driving: [...] Time PCP COLEEN Wen [address] [place] [address] Jun 20 10:00am Food Sales Clerk Dr. Gutierrez [facility] Cardiology [phone] ThursdayJul 23 11:40am Discharge References/Attachments Angina (Filipino) Discussed with MD Coni Escobar PA-C Pager [...] of 8AM-5PM please call the Cardiology Clinic [phone] to speak with a nurse. All other hours please call the Hospital [facility] [phone] and ask to speak to the portrait artist on-call. Return to work: One week Driving: [...] Time PCP COLEEN Wen [address] [place] [address] Jun 20 10:00am Food Sales Clerk Dr. Gutierrez [facility] Cardiology [phone] ThursdayJul 23 11:40am * Patient Instructions* Coni Lew PA - 06/10/2021 3:07 PM EDT * Attachments The following attachments cannot be sent through Care Everywhere. * Angina (Filipino) documented in this encounter Medications at Time [...] MOUTH EVERY 4 TO 6 HOURS 05/18/2020 [employer] Verio test strips Strip USE ONE STRIP [...] Transport initiated/not confirmed: Spoke with NOELLE from [facility] who initiated a ride with their scheduling department/dispatch to pick patient up at discharge 06/10/21 from the MAIN entrance at ~18:00 en route to HOME UPDATE 16:06 Discharge Transportation confirmed: Spoke with ELMIRA from [facility] who confirmed a fence post driver provided by school transportation supervisorULISES will arrive to pick patient up at discharge 06/10/21 from the MAIN entrance at 18:00 en route to HOME. Bedside nurse notified via eDH chat. [facility] PHONE: [phone] * Supa Alegria MD - 06/10/2021 8:04 AM EDT Images from the original note were not included. Inpatient Cardiology Progress Note Patient Name: Romeo Coelho Service: CONSULTANT / PA Responsible Attending: Supa Alegria MD [...] since 2011 and last JACINDA to RCA [id number]. Last [facility] 2019 with residual ~40% LAD [...] chest at this time ?? Diabetes mellitus, dsb-knapssg-jhirvjegz, uncontrolled A1c of 9.4% Hold home metformin [...] Discussed with MD Coni Escobar PA-C Pager #[phone] 06/10/2021 Cardiology Attending Note I have seen and examined the patient. I agree with the findings above. Of note, he is feeling well today. His groin site shows no evidence of fluid collection. Blood cultures show no growth. We will proceed with coronary angiography and possible PCI Supa Alegria MD [facility] Total time spent on review of records [...] Progress Note Patient Name: Romeo Coelho Service: CONSULTANT / PA Responsible Attending: Supa Alegria MD Reason for continued hospitalization: Evaluation and management of unstable angina- cath Right groin cellulitis-IV abx Medication adjustment Active Problems: Active Hospital Problems Diagnosis ??? Unstable angina ??? Chest pain ??? Smoker ??? CAD (coronary artery disease) -Coronary Angio 07/29/2013: 65% (FFR 0.74) mid LAD lesion s/p PCI with 3.5 X 18 mm JACINDA - [facility] 2009 post abnormal nuc stress +IW, EF [...] CTA at this time ?? Diabetes mellitus, cnj-vtuxwal-rxahsgkbf Poor control with A1c of 9.4 Carb [...] ?Routine Diet: Daily Healthy Menu Choices/Cardiac diet ([facility]-Diet) CHO counting level 2 [...] proceed tomorrow on antibiotics. Supa Alegria MD [facility] Total time spent on review of records [...] PCP: Coni Lim MD PCP phone number: [phone] Date of Admission: 2021 ( Hospital Day 0 days ) Attending:Zuleyka Hodgson MD Patient Active Problem List Diagnosis ??? ','Unstable angina ??? Chest pain ??? Smoker ??? CAD (coronary artery disease) Overview Note: -Coronary Angio 07/29/2013: 65% (FFR 0.74) mid LAD lesion s/p PCI with 3.5 X 18 mm JACINDA - [facility] 2009 post abnormal nuc stress +IW, EF [...] of Onset ??? Myocardial Infarction Father [address] [place], CABG ??? Heart Disease Father ??? Diabetes [...] Lives with and daughter at home in [place], [place]. He is disabled now. He used [...] in the last 7068 hours. Invalid input(s): DRNPKZVZEAW1P No results for input(s): POCGLU in the last 168 hours. Heme No results for input(s): LDH, HAPTOGLOBIN, URICACID in the last 168 hours. ABG (Arterial Blood Gas) No results found for: PHART, PO2ART, XGR5UPD, ENC1KMP Microbiology: Microbiology Results (Last 30 days) No [...] (porcine) AND heparin (porcine) infusion Recent diagnostics: [facility] (2019): Left Main The left main was [...] Obtain Echo - Serial cardiac enzymes - pen rider - Cardiac cath in a.m. - Check [...] infection. No hypoxia or tachycardia #Diabetes mellitus, sqq-xqotzxq-tgkdkjscg, poor control with A1c of 9.4 -Diabetic [...] #Routine Diet: Daily Healthy Menu Choices/Cardiac diet ([facility]-Diet) 75/75/90 CHO counting level 3 DVT Prophylaxis: already on heparin drip Code Status: Attempt Cardiopulmonary Resuscitation - Inpatient Dispo: Pending clinical course Isaiah Hoyos MD Pager #[phone] 06/08/21 8:56 PM documented in this encounter [...] cath without complications. Coni Lew PA-C Pager #[phone] 06/10/2021 * Initial Assessments - Ruthie Macias RN - 06/10/2021 3:39 PM EDT Office of Care Management Initial Assessment Ruthie Macias RN reviewed record and discussed patient with Care Team. Source of Information: Team, bedside nurse, medical record, and Patient Introduced self/reviewed role; services accepted. Reason for Hospitalization: unstable angina Last COVID test: Lab Results Component Value Date QPCTPIKVES2H Not Detected 06/09/2021 Past medical History: Past [...] Dasia would be surrogate decision maker per [place] surrogatedecision making law. (Only good for 180 days) Any patient receiving care at [facility] must abide by [place] law. The hierarchy for surrogate decision making [...] (i) The agent with financial power of energy attorney or a conservator appointed in accordance [...] cane - straight Home Address confirmed as: [address] [place] [address] Social & Family Supports: All names listed below confirmed with patient as current and correct Extended Emergency Contact Information Primary Emergency Contact: Dasia Coelho Address: [address] [place] [id number] [place] [address] of [facility] Mobile Relation: Spouse Current Care Provided by: [...] MEDICAID [place] Prescription Coverage: Yes Preferred Pharmacy: [id number] - [facility], [place] - [address] [facility] [address] [place] [id number] [place] Status: Patient is a : No Primary Care Provider: Coni Lim MD [phone] Patient/Caregiver Goals of Treatment: dc to home [...] ambulation, driving. He drove his car to [facility] and then required a BLS to transport here to [facility]. He will require assistance in finding A ride to home when he is dced. Pt has supports in place to accessthe necessary care and or follow up after dishcharge and there are no RN CM or IN TUBE CONVERSION TECHNICIAN needs that are identified at this time Plan: dc to home A member of the Care Management team will continue to monitor progress, follow for continuity of care and assist with transition of care planning. Ruthie Macias RN CM Ext [phone] Pager [phone] * Consult Note - Elena Zaragoza APRN - 06/10/2021 12:07 PM EDT Diabetes Management Team Inpatient Consult Date of Consultation: 06/10/2021 Consult Requested by: Cardiology Reason for Consultation: Roemo Coelho is a 56 y.o. 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 We are being consulted to assist with diabetes management and to provide a review of intermodal customer service diabetes care. Diabetes History: Romeo Coelho has had diabetes for about 8 years. He was diagnosed during routine blood testing by his PCP. Denies having any symptoms at time of diagnosis. He takes metformin only, hasn't discussed additional medications with PCP previously as historically A1c has been 6-7. Lives in [facility] with Dasia. States the last [...] of Onset ??? Myocardial Infarction Father [address] [place], CABG ??? Heart Disease Father ??? Diabetes [...] 10 gm carb ratio for each meal) care home diabetes care: Medications - Outpatient treatment regimen recommendations pending based on the hospital course. Monitoring - continue BG tid ac & hs Diet - low fat/low carb diet Exercise - weight-bearing exercise 30 min/day, as tolerated Thank you for allowing us to provide care for your patient Elena Nik [facility]LA[facility] Endocrinology Pager [phone] minutes of this 80 minute visit was spent with the patient in counseling on diabetes and treatment plan, reviewing all glucose and insulin data as well as relevant laboratory results with the patient, and coordination of care on the inpatient unit * Brief Op Note - Jose Trimble MD - 06/10/2021 11:37 AM EDT Brief Operative Note Patient Name: Romeo Coelho : [id number] MR#: [id number] Case Date: 06/10/2021 Food Sales Clerk: * Jose Trimble MD - Primary * Syed Solorio MD - Fellow Preoperative diagnosis: nstemi Postoperative diagnosis:NSTEMI with stable coronary anatomy Preliminary Cardiac Catheterization Procedure Note: Procedure(s) performed: Coronary Angiography, Left Heart Cath Baseline Frailty Assessment: Definitions from [place] Study of Health and Aging Clinical Frailty [...] Full report to follow. JOSE TRIMBLE MD deicer element winder machine Pager [phone] * Plan of Care - Fabienne Morelos RN - 06/09/2021 2:57 PM EDT OUTCOME EVALUATION NOTE: OUTCOME SUMMARY: A/O x4. VSS on RA. NSR on tele. Heparin gtt maintained per protocol.IV zosyn and vanc given per protocol. (see MAR). BG elevated, MD notified, insulin scale adjusted. PLAN MOVING FORWARD: BC results asset availability leader D/c planning INDIVIDUALIZED FALL PREVENTION INTERVENTIONS: Patient-specific [...] SOB reported, remains on room air overnight. [place] very nauseous after he went to the [...] further details. Isaiah Hoyos MD 2021 Pager [phone] documented in this encounter Plan of Treatment [...] 06/09/2021 5:50 AM EDT RAPID COVID-19 PCR ([facility]) Routine 06/09/2021 5:45 AM EDT POCT [...] * POCT Glucose (06/10/2021 4:20 PM EDT) [facility] Signature Glucose, POC 177 65 - 199 mg/dL [facility] Comment: Supplemental ranges: <140 mg/dL before meals <180 mg/dL all other times of the day Blood 06/10/2021 4:20 PM EDT 06/10/2021 4:20 PM EDT Supa Alegria MD POINT OF CARE TEST O RDERABLES [facility] [place] [address] * Troponin (06/10/2021 1:07 PM EDT) Troponin-T [...] meets the diagnosis for a myocardial infarction ([place]). Detection of a rise and/or fall of cTnT, with at least one value greater than the 99th percentile (> or = 0.01) and with at least one of the following ?? Symptoms of ischemia ?? New or presumed new significant GZ-tujcuei-X wave (ST-T) changes or new left bundle [...] additional sample may be indicated. Reference: Third [place] Definition of Myocardial Infarction. Journal of the [place] College [employer] 2012;60:1581-98 Blood 06/10/2021 1:07 PM EDT 06/10/2021 1:18 PM EDT Narrative Resulting Agency Comment Spec In Lab Isaiah Hoyos MD CHEMISTRY ORDERABLE S [facility] [place] [address] * POCT Glucose (06/10/2021 11:58 AM EDT) Glucose, POC 175 65 - 199 mg/dL [facility] Comment: Supplemental ranges: <140 mg/dL before meals <180 mg/dL all other times of the day Blood 06/10/2021 11:5 8 AM EDT 06/10/2021 11:58 AM EDT Supa Alegria MD POINT OF CARE TEST O RDERABLES [facility] [place] [address] * CARDIAC CATHETERIZATION (06/10/2021 11:45 AM EDT) Anatomical Region Laterality Modality Other Narrative 06/10/2021 12:54 PM EDT ?[facility] ? Cardiac Catheterization/Intervention Report ? Patient Name: Coelho, Romeo A. ? Procedure Date: 06/10/2021 ? A #: [id number] ? Primary Physician: Jose Trimble V ? Case #: [id number] ? File Name: [id number] ? Catheterization Order Number: [id number] ? [facility] ? Final Report [place], [place] ? Patient Name: ? Romeo Coelho ? ID#: ?[id number] ? : ?1965 ? Procedure Date: ? [...] ?designated as ASA Class II. The [facility] clinical frailty scale is 2: [...] was Urgent. The indication for ?the label tacker visit is worsening angina. Chest pain symptom [...] Procedure Note Jose Trimble MD - 06/10/2021 [facility] Cardiac Catheterization/Intervention Report Patient Name: Romeo CoelhoNatalie Procedure Date: 06/10/2021 A #: [id number] Primary Physician: Jose Trimble V Case #: [id number] File Name: [id number] Catheterization Order Number: [id number] [facility] FinalReport [place], [place] Patient Name: Romeo Coelho ID#:[id number] :1965 Procedure Date: June 10, 2021 Case [...] designated as ASA Class II. The [facility] clinical frailty scale is 2:Well. [...] procedure was Urgent. The indicationfor the label tacker visit is worsening angina. Chest pain symptomassessment [...] units of heparin were administered. A total tf420of of Omnipaque were opened, 38cc of Omnipaque were administered dlz59fu of Omnipaque were wasted. Radiation: Fluoro time [...] POCT Glucose (06/10/2021 7:59 AM EDT) [facility] Glucose, POC 191 65 - 199 mg/dL [facility] Comment: Supplemental ranges: <140 mg/dL before meals <180 mg/dL all other times of the day Blood 06/10/2021 7:59 AM EDT 06/10/2021 7:59 AM EDT Supa Alegria MD POINT OF CARE TEST O RDERABLES [facility] [place] [address] * (ABNORMAL) BMP w/fasting Glucose (06/10/2021 3:44 AM EDT) Glucose Fasting 195(H) 65 - 99 mg/dL [facility] [...] of Diabetes Mellitus, Position Statement from the [place] Diabetes Association. ??Diabetes Care, Volume 33, Supplement 1, Aug 2009 Blood Urea Nitrogen 9(L) 10 - 20 mg/dL [facility] Creatinine 0.79(L) 0.80 - 1.50 mg/dL [facility] Sodium 134(L) 135 - 145 mmol/L [facility] Potassium 4.1 3.5 - 5.0 mmol/L [facility] Comment: Please note: ??Patients with WBC >100,000 may have falsely elevated Potassium levels. ??For accurate Potassium quantification in these patients send serum separator tube (gold top) for subsequent determinations. ??Contact the Clinical Chemistry Laboratory if there are any questions. Chloride 103 98 - 107 mmol/L [facility] Carbon Dioxide 18(L) 22 - 31 mmol/L [facility] Anion Gap 13 5 - 15 mmol/L [facility] Calcium 9.4 8.5 - 10.5 mg/dL [facility] Est Glomerular Filtration Rate 102 >=60 mL/min/1. 73 m?? [facility] Comment: This patient? [...] In Lab Coni GROVER CHEMISTRY ORDERABLE S [facility] [place] [address] * Troponin (06/10/2021 3:44 AM EDT) Troponin-T [...] meets the diagnosis for a myocardial infarction ([place]). Detection of a rise and/or fall of cTnT, with at least one value greater than the 99th percentile (> or = 0.01) and with at least one of the following ?? Symptoms of ischemia ?? New or presumed new significant MG-ulhxcng-R wave (ST-T) changes or new left bundle [...] additional sample may be indicated. Reference: Third [place] Definition of Myocardial Infarction. Journal of the [place] College [employer] 2012;60:1581-98 Blood Venous Draw / Unknown 06/10/2021 3:44 AM EDT 06/10/2021 4:06 AM EDT Narrative Resulting Agency Comment Spec In Lab Isaiah Hoyos MD CHEMISTRY ORDERABLE S Performing Organization Address [facility]/ZIP Co de Phone Number [facility] [place] [place] [address] * Green Tube HOLD (06/10/2021 3:44 AM EDT) Green Hold Sample in lab. [facility] Blood Venous Draw / Unknown 06/10/2021 3:44 AM EDT 06/10/2021 4:03 AM EDT Isaiah Hoyos MD CHEMISTRY ORDERABLE S Performing Organization Address [facility] Co de Phone Number [facility] [place] [address] * POCT Glucose (06/10/2021 3:44 AM EDT) Glucose, POC 191 65 - 199 mg/dL [facility] Comment: Supplemental ranges: <140 mg/dL before meals <180 mg/dL all other times of the day Blood 06/10/2021 3:44 AM EDT 06/10/2021 3:44 AM EDT Supa Alegria MD POINT OF CARE TEST O RDERABLES Performing Organization Address [facility] Co de Phone Number [facility] [place] [address] * Heparin (unfractionated) Level (06/10/2021 3:44 AM EDT) [facility] UF Heparin 0.38 IU/mL [facility] Comment: Guidelines for therapeutic unfractionated [...] Lab Isaiah Hoyos MD HEMATOLOGY ORDERABL ES [facility] [place] [address] * (ABNORMAL) Differential, Automated (06/10/2021 3:44 AM EDT) [facility] Neutrophil % 55.0 % [facility] Neutrophil Absolute 4.98 1.70 - 6.10 x10(3)/mc L [facility] Lymph % 29.1 % [facility] Lymphocytes Abs 2.6 0.9 - 3.2 x10(3)/mc L [facility] Monocyte % 7.5 % [facility] Monocyte Abs 0.7 0.3 - 0.9 x10(3)/mc L [facility] Eos % 5.9 % [facility] Eosinophils Abs 0.5(H) 0.0 - 0.4 x10(3)/[facility] Basophil % 1.1 % [facility] Baso Absolute 0.1 0.0 - 0.1 x10(3)/[facility] Immature Gran % 1.40 % [facility] Comment: Immature granulocytes(IG's)percentage and absolute count will include metamyelocytes, myelocytes, and promyelocytes. Blood smears from CBCs yielding IG's will be scanned manually for concordance. If this scan disagrees with the automated IG or if promyelocytes are noted, a manual differential will be performed. Immature Gran Absolute 0.13(H) 0.00 - 0.04 x10(3)/[facility] Blood 06/10/2021 3:44 AM EDT 06/10/2021 4:03 AM EDT Narrative Resulting Agency Comment Spec In Lab Isaiah Hoyos MD HEMATOLOGY ORDERABL ES [facility] [place] [address] * Hemogram (06/10/2021 3:44 AM EDT) White Blood Cell 9.0 4.0 - 9.5 x10(3)/[facility] Red Blood Cell 4.97 4.58 - 5.54 x10(6)/[facility] Hemoglobin 14.2 13.7 - 16.5 g/dL [facility] Hematocrit 42.8 40.5 - 48.5 % [facility] Mean Cell Volume 86.1 82.9 - 93.1 fL [facility] Mean Cell Hemoglobin 28.6 27.5 - 32.1 pg [facility] Mean Cell Hemoglobin Concentration 33.2 32.0 - 35.7 g/dL [facility] Platelet 251 145 - 357 x10(3)/[facility] RDW Standard Deviation 40.5 36.0 - [address].0 [facility] RDW coefficient of variation 13.0 11.4 - 13.8 % [facility] Mean Platelet Volume 10.5 7.6 - 12.9 [facility] NRBC% auto 0.0 % [facility] NRBC Absolute 0.000 0.000 - 0.000 x10(3)/[facility] Blood 06/10/2021 3:44 AM EDT 06/10/2021 4:03 AM EDT Narrative Resulting Agency Comment Spec In Lab Isaiah Hoyos MD HEMATOLOGY ORDERABL ES Performing Organization Address [facility]/ZIP Co de Phone Number [facility] [place] [address] * POCT Glucose (06/09/2021 11:57 PM EDT) Glucose, POC 147 65 - 199 mg/dL [facility] Comment: Supplemental ranges: <140 mg/dL before meals <180 mg/dL all other times of the day Blood 06/09/2021 11:5 7 PM EDT 06/09/2021 11:57 PM EDT Supa Alegria MD POINT OF CARE TEST O RDERABLES Performing Organization Address [facility]/ZIP Co de Phone Number [facility] [place] [address] * POCT Glucose (06/09/2021 8:06 PM EDT) Glucose, POC 193 65 - 199 mg/dL [facility] Comment: Supplemental ranges: <140 mg/dL before meals <180 mg/dL all other times of the day Blood 06/09/2021 8:06 PM EDT 06/09/2021 8:06 PM EDT Supa Alegria MD POINT OF CARE TEST O RDERABLES [facility] [place] [address] * Troponin (06/09/2021 5:47 PM EDT) Troponin-T [...] meets the diagnosis for a myocardial infarction ([place]I). Detection of a rise and/or fall of cTnT, with at least one value greater than the 99th percentile (> or = 0.01) and with at least one of the following ?? Symptoms of ischemia ?? New or presumed new significant TV-vgwzwcf-G wave (ST-T) changes or new left bundle [...] additional sample may be indicated. Reference: Third [place] Definition of Myocardial Infarction. Journal of the [place] 2012;60:1581-98 Blood 06/09/2021 5:47 PM EDT 06/09/2021 6:02 PM EDT Narrative Resulting Agency Comment Spec In Lab Isaiah Hoyos MD CHEMISTRY ORDERABLE S [facility] [place] [address] * (ABNORMAL) POCT Glucose (06/09/2021 4:40 PM EDT) Glucose, POC 200(H) 65 - 199 mg/dL [facility] Comment: Supplemental ranges: <140 mg/dL before meals <180 mg/dL all other times of the day Blood 06/09/2021 4:40 PM EDT 06/09/2021 4:40 PM EDT Supa Alegria MD POINT OF CARE TEST O RDERAAIRAM Performing Organization Address [facility] de Phone Number [facility] [place] [address] * (ABNORMAL) POCT Glucose (06/09/2021 3:02 PM EDT) Glucose, POC 209(H) 65 - 199 mg/dL [facility] Comment: Supplemental ranges: <140 mg/dL before meals <180 mg/dL all other times of the day Blood 06/09/2021 3:02 PM EDT 06/09/2021 3:02 PM EDT Supa Alegria MD POINT OF CARE TEST O EVITA Performing Organization Address [facility] Phone Number [facility] [place] [address] * ECHO COMPLETE W CONTRAST (06/09/2021 1:52 PM EDT) Anatomical Region Laterality Modality Other 06/09/2021 Narrative 06/09/2021 2:16 PM EDT Procedure: ?Transthoracic Echocardiogram Patient: ?COELHO ROMEO A ? (Age): 1965(56y) Med Rec#: ? [id number] ?Sex: ?M ? Site Loc: ? [facility] ?Ht / Wt: ??177(cm)/114(kg) Pt. Loc: ?[facility] ? BSA: ?2.29 Study Date: ?? 06/09/2021 ?Pt. Type: Inpatient Tape: ? Referring: [email or web address] Reading: Zuleyka Hodgson ([id number]) Insurance Counsel: Ortiz Sandoval Diagnosis: *Chest pain, unspecified (R07.9) [...] Vmax ?0.67 ? m/sec ? MV deceleration [id number] ? msec ? MV A-wave Vmax ?0.48 [...] 06/09/2021 14:15:33 Images reviewed and interpretation verified [facility] Cardiac Ultrasound Laboratory Procedure Note Zuleyka Hodgson MD - 06/09/2021 Procedure: Transthoracic Echocardiogram Patient: LAQUITA HARRIS(Age): 1965(56y) Med Rec#: [id number] Sex: M Site Loc: [facility] Ht / Wt: 177(cm)/114(kg) Pt. Loc: [facility] BSA: 2.29 Study Date: 06/09/2021 Pt. Type: Inpatient Tape: Referring: [email or web address] Reading: Zuleyka Hodgson ([id number]) Insurance Counsel: Ortiz Sandoval Diagnosis: *Chest pain, unspecified (R07.9) [...] MV E-wave Vmax 0.67 m/sec MV deceleration [id number] msec MV A-wave Vmax 0.48 m/sec MV [...] 06/09/2021 14:15:33 Images reviewed and interpretation verified [facility] Ul[facility]ound [facility] Isaiah Hoyos MD ECHO ORDERABLES * (ABNORMAL) POCT Glucose (06/09/2021 11:49 AM EDT) Glucose, POC 258(H) 65 - 199 mg/dL [facility] Comment: Supplemental ranges: <140 mg/dL before meals <180 mg/dL all other times of the day Blood 06/09/2021 11:4 9 AM EDT 06/09/2021 11:49 AM EDT Supa Alegria MD POINT OF CARE TEST O RDERABLES [facility] [place] [address] * Troponin (06/09/2021 11:30 AM EDT) [facility] Troponin-T <0.01 0.00 - 0.00 ng/mL [facility] Comment: The 99th percentile for Troponin T is less than 0.01 ng/mL, any detectable cTnT concentration using this assay should be considered elevated. According to the third universal definition of myocardial infarction the following criteria with a clinical presentation consistent with acute myocardial ischemia meets the diagnosis for a myocardial infarction ([place]). Detection of a rise and/or fall of cTnT, with at least one value greater than the 99th percentile (> or = 0.01) and with at least one of the following ?? Symptoms of ischemia ?? New or presumed new significant MH-hullivc-K wave (ST-T) changes or new left bundle [...] additional sample may be indicated. Reference: Third [place] Definition of Myocardial Infarction. Journal of the [place] [employer] 2012;60:1581-98 Blood 06/09/2021 11:3 0 AM EDT 06/09/2021 11:44 AM EDT Narrative Resulting Agency Comment Spec In Lab Isaiah Hoyos MD CHEMISTRY ORDERABLE S Performing Organization Address [facility] de Phone Number [facility] [place] [address] * Heparin (unfractionated) Level (06/09/2021 11:30 AM EDT) Pathologist [facility] UF Heparin 0.32 IU/mL [facility] Comment: Guidelines for therapeutic unfractionated [...] MD HEMATOLOGY ORDERABLE S Performing Organization Address [facility] Co de Phone Number [facility] [place] [address] * (ABNORMAL) POCT Glucose (06/09/2021 8:03 AM EDT) [facility] Glucose, POC 233(H) 65 - 199 mg/dL [facility] Comment: Supplemental ranges: <140 mg/dL before meals <180 mg/dL all other times of the day Blood 06/09/2021 8:03 AM EDT 06/09/2021 8:03 AM EDT Supa Alegria MD POINT OF CARE TEST O RDERABLES [facility] [place] [address] * (ABNORMAL) Differential, Automated (06/09/2021 5:50 AM EDT) Neutrophil % 56.8 % [facility] Neutrophil Absolute 4.64 1.70 - 6.10 x10(3)/mc L [facility] Lymph % 27.0 % [facility] Lymphocytes Abs 2.2 0.9 - 3.2 x10(3)/ L [facility] Monocyte % 8.6 % [facility] Monocyte Abs 0.7 0.3 - 0.9 x10(3)/ L [facility] Eos % 5.6 % [facility] Eosinophils Abs 0.5(H) 0.0 - 0.4 x10(3)/ L [facility] Basophil % 0.9 % [facility] Baso Absolute 0.1 0.0 - 0.1 x10(3)/ L [facility] Immature Gran % 1.10 % [facility] Comment: Immature granulocytes(IG's)percentage and absolute count will include metamyelocytes, myelocytes, and promyelocytes. Blood smears from CBCs yielding IG's will be scanned manually for concordance. If this scan disagrees with the automated IG or if promyelocytes are noted, a manual differential will be performed. Immature Gran Absolute 0.09(H) 0.00 - 0.04 x10(3)/ L [facility] Blood 06/09/2021 5:50 AM EDT 06/09/2021 6:06 AM EDT Narrative Resulting Agency Comment Spec In Lab Isaiah Hoyos MD HEMATOLOGY ORDERABL ES [facility] [place] [address] * Hemogram (06/09/2021 5:50 AM EDT) [facility] White Blood Cell 8.2 4.0 - 9.5 x10(3)/[facility] Red Blood Cell 4.87 4.58 - 5.54 x10(6)/[facility] Hemoglobin 14.1 13.7 - 16.5 g/dL [facility] Hematocrit 42.0 40.5 - 48.5 % [facility] Mean Cell Volume 86.2 82.9 - 93.1 fL [facility] Mean Cell Hemoglobin 29.0 27.5 - 32.1 pg [facility] Mean Cell Hemoglobin Concentration 33.6 32.0 - 35.7 g/dL [facility] Platelet 240 145 - 357 x10(3)/[facility] RDW Standard Deviation 40.7 36.0 - 45.0 [facility] RDW coefficient of variation 12.9 11.4 - 13.8 % [facility] Mean Platelet Volume 10.9 7.6 - 12.9 [facility] NRBC% auto 0.0 % [facility] NRBC Absolute 0.000 0.000 - 0.000 x10(3)/[facility] Blood 06/09/2021 5:50 AM EDT 06/09/2021 6:06 AM EDT Narrative Resulting Agency Comment Spec In Lab Isaiah Hoyos MD HEMATOLOGY ORDERABL ES Performing Organization Address City/[facility]/ZIP Co de Phone Number [facility] [place] [address] * Troponin (06/09/2021 5:50 AM EDT) [facility] Troponin-T <0.01 0.00 - 0.00 ng/mL [facility] Comment: The 99th percentile for Troponin T is less than 0.01 ng/mL, any detectable cTnT concentration using this assay should be considered elevated. According to the third universal definition of myocardial infarction the following criteria with a clinical presentation consistent with acute myocardial ischemia meets the diagnosis for a myocardial infarction ([place]). Detection of a rise and/or fall of cTnT, with at least one value greater than the 99th percentile (> or = 0.01) and with at least one of the following ?? Symptoms of ischemia ?? New or presumed new significant XQ-bfkufvo-H wave (ST-T) changes or new left bundle [...] additional sample may be indicated. Reference: Third [place] Definition of Myocardial Infarction. Journal of the [place] [employer] 2012;60:1581-98 Blood 06/09/2021 5:50 AM EDT 06/09/2021 6:05 AM EDT Narrative Resulting Agency Comment Spec In Lab Isaiah Hoyos MD CHEMISTRY ORDERABLE S [facility] [place] [address] * Heparin (unfractionated) Level (06/09/2021 5:50 AM EDT) UF Heparin 0.31 IU/mL [facility] Comment: Guidelines for therapeutic unfractionated [...] MD HEMATOLOGY ORDERABL ES Performing Organization Address [facility] Co de Phone Number [facility] [place] [address] * Blood culture (06/09/2021 5:50 AM EDT) Blood Culture No growth at 5 days. [facility] Blood ANTECUBITAL REGION STRUCTURE / Unknown 06/09/2021 5:50 AM EDT 06/09/2021 10:08 AM EDT Comment:#1 Narrative Resulting Agency Comment Spec In Lab Isaiah Hoyos MD MICROBIOLOGY - BLOO D ORDERABLES Performing Organization Address [facility] Co de Phone Number [facility] [place] [address] * Lipid Panel (Reflex Direct LDL) (06/09/2021 5:50 AM EDT) Cholesterol, Total 207 mg/dL [facility] Comment: Lower Risk: <200 mg/dL Average Risk: 200-239 mg/dL Higher Risk: >tw=297 mg/dL Triglyceride 235 mg/dL [facility] Comment: Average Risk/Lower Risk: <150 mg/dL Borderline High Risk: 150-199 mg/dL High Risk: 200-499 mg/dL Very High Risk: >br=086 mg/dL HDL Cholesterol 29 mg/dL [facility] Comment: Males: ?? Higher Risk: <40 mg/dL Females: ?? Higher Risk: <50 mg/dL LDL Cholesterol 131 mg/dL [facility] Comment: Lowest Risk: <100 mg/dL Lower Risk: 100-129 mg/dL Borderline High Risk: 130-159 mg/dL High Risk: 160-189 mg/dL Very High Risk: >aq=614 mg/dL Cholesterol/HDL Ratio 7.1 ratio [facility] Lipid Interpretation See Note [facility] Comment: Lipid management should be guided by a patient? s ASCVD risk, goals and preferences. ACC/AHA Guidelines recommend high intensity statin if clinical ASCVD or LDL greater than or equal to 190 mg/dL. http://[employer].com/TAN-FJA-Aarmbnqpe Adults aged 40-75 with LDL 70-189 mg/dL should have their 10 year ASCVD risk estimated with the ACC/AHA ASCVD risk fuel cell engineer http://tools.acc.org/FZVHA-Uhmv-Sdabcedeb/ Statin should be discussed if risk greater [...] Lab Isaiah Hoyos MD CHEMISTRY ORDERABLE S [facility] [place] [address] * COVID-19 PCR (06/09/2021 5:45 AM EDT) SARS-CoV-2 RNA (Rapid) Not Detected Not Detected [facility] Comment: This result [...] using the Simplexa COVID-19 Direct Assay by [employer] as authorized by the FDA issued Emergency [...] Department of Pathology and Laboratory Medicine at [facility], certified under the Clinical Laboratory [...] fact sheets at the following FDA website: https://www.fda.gov/medical-devices/xkommezeqvi-pcgmbsw-3653-twieo-37-fliavbtyz- use-a dkgfdpckqeiot-gbupqky-jgguaxm/wgbgs-xlysddnffxd-wlrp SARS-CoV-2 Source CONSULTANT Swab [facility] Nasopharyngeal Swab 06/09/20 5:45 AM EDT 06/10/2021 6:15 AM EDT Comment:Symptoms->Surveillan ce Narrative Resulting Agency Comment Spec In Lab Isaiah Hoyos MD MICROBIOLOGY - GENE RAL ORDERABLES Performing Organization Address [facility]/ZIP Co de Phone Number [facility] [place] [address] * (ABNORMAL) POCT Glucose (06/09/2021 4:20 AM EDT) Glucose, POC 224(H) 65 - 199 mg/dL [facility] Comment: Supplemental ranges: <140 mg/dL before meals <180 mg/dL all other times of the day Blood 06/09/2021 4:20 AM EDT 06/09/2021 4:20 AM EDT Supa Alegria MD POINT OF CARE TEST O RDERABLES Performing Organization Address [facility] Co de Phone Number [facility] [place] [address] * (ABNORMAL) POCT Glucose (06/09/2021 12:35 AM EDT) Glucose, POC 346(H) 65 - 199 mg/dL [facility] Comment: Supplemental ranges: <140 mg/dL before meals <180 mg/dL all other times of the day Blood 06/09/2021 12:3 5 AM EDT 06/09/2021 12:35 AM EDT Zuleyka Hodgson MD POINT OF CARE T EST ORDERABLES Performing Organization Address [facility] Co de Phone Number [facility] [place] [address] * Heparin (unfractionated) Level (2021 10:41 PM EDT) UF Heparin 0.26 IU/mL [facility] Comment: Guidelines for therapeutic unfractionated [...] Lab Isaiah Hoyos MD HEMATOLOGY ORDERABL ES [facility] [place] [address] * EKG 12 Lead (2021 8:46 PM EDT) Ventricular rate 69 BPM MUSE SYSTEM Atrial Rate 69 BPM MUSE SYSTEM P-R Interval 148 ms MUSE SYSTEM QRS Duration 84 ms MUSE SYSTEM Q-T Interval 384 ms MUSE SYSTEM QTC Calculated (Bezet) 411 ms MUSE SYSTEM Calculated P [place] 39 degrees MUSE SYSTEM Calculated R [place] 14 degrees MUSE SYSTEM Calculated T [place] 21 degrees MUSE SYSTEM INTERPRETATION Normal sinus [...] [facility] Blood 2021 8:26 PM EDT 2021 8:57 PM EDT Narrative Resulting Agency Comment Spec In Lab Isaiah Hoyos MD MICROBIOLOGY - BLOO D ORDERABLES [facility] [place] [address] * Troponin (2021 7:31 PM EDT) Troponin-T [...] meets the diagnosis for a myocardial infarction ([place]). Detection of a rise and/or fall of cTnT, with at least one value greater than the 99th percentile (> or = 0.01) and with at least one of the following ?? Symptoms of ischemia ?? New or presumed new significant XG-hfbdulv-E wave (ST-T) changes or new left bundle [...] additional sample may be indicated. Reference: Third [place] Definition of Myocardial Infarction. Journal of the [place] [employer] 2012;60:1581-98 Blood 2021 7:31 PM EDT 2021 7:37 PM EDT Narrative Resulting Agency Comment Spec In Lab Isaiah Hoyos MD CHEMISTRY ORDERABLE S [facility] [place] [address] * (ABNORMAL) Differential, Automated (2021 7:31 PM EDT) Neutrophil % 53.6 % [facility] Neutrophil Absolute 4.36 1.70 - 6.10 x10(3)/mc L [facility] Lymph % 28.5 % [facility] Lymphocytes Abs 2.3 0.9 - 3.2 x10(3)/ L [facility] Monocyte % 10.8 % [facility] Monocyte Abs 0.9 0.3 - 0.9 x10(3)/ L [facility] Eos % 5.4 % [facility] Eosinophils Abs 0.4 0.0 - 0.4 x10(3)/ L [facility] Basophil % 1.0 % [facility] Baso Absolute 0.1 0.0 - 0.1 x10(3)/ L [facility] Immature Gran % 0.70 % [facility] Comment: Immature granulocytes(IG's)percentage and absolute count will include metamyelocytes, myelocytes, and promyelocytes. Blood smears from CBCs yielding IG's will be scanned manually for concordance. If this scan disagrees with the automated IG or if promyelocytes are noted, a manual differential will be performed. Immature Gran Absolute 0.06(H) 0.00 - 0.04 x10(3)/ L [facility] Blood 2021 7:31 PM EDT 2021 7:37 PM EDT Narrative Resulting Agency Comment Spec In Lab Isaiah Hoyos MD HEMATOLOGY ORDERABL ES [facility] [place] [address] * (ABNORMAL) Hemogram (2021 7:31 PM EDT) [facility] White Blood Cell 8.1 4.0 - 9.5 x10(3)/[facility] Red Blood Cell 4.65 4.58 - 5.54 x10(6)/[facility] Hemoglobin 13.5(L) 13.7 - 16.5 g/dL [facility] Hematocrit 39.4(L) 40.5 - 48.5 % [facility] Mean Cell Volume 84.7 82.9 - 93.1 fL [facility] Mean Cell Hemoglobin 29.0 27.5 - 32.1 pg [facility] Mean Cell Hemoglobin Concentration 34.3 32.0 - 35.7 g/dL [facility] Platelet 219 145 - 357 x10(3)/[facility] RDW Standard Deviation 39.9 36.0 - 45.0 [facility] RDW coefficient of variation 13.1 11.4 - 13.8 % [facility] Mean Platelet Volume 10.5 7.6 - 12.9 [facility] NRBC% auto 0.0 % [facility] NRBC Absolute 0.000 0.000 - 0.000 x10(3)/[facility] Blood 2021 7:31 PM EDT 2021 7:37 PM EDT Narrative Resulting Agency Comment Spec In Lab Isaiah Hoyos MD HEMATOLOGY ORDERABL ES [facility] [place] [address] * (ABNORMAL) Basic Metabolic Panel (non-fasting) (2021 7:31 PM EDT) [facility] Glucose 244(H) 65 - 199 mg/dL [facility] Comment:Diabetes: >=200 mg/d L plus symptoms Blood Urea Nitrogen 12 10 - 20 mg/dL [facility] Creatinine 0.73(L) 0.80 - 1.50 mg/dL [facility] Sodium 133(L) 135 - 145 mmol/L [facility] questions[facility] Chloride 100 98 - 107 mmol/L [facility] Carbon Dioxide 22 22 - 31 mmol/L [facility] Anion Gap 11 5 - 15 mmol/L [facility] Calcium 9.3 8.5 - 10.5 mg/dL [facility] Est Glomerular Filtration Rate 105 >=60 mL/min/1. 73 m?? [facility] Comment: This patient? [...] Lab Isaiah Hoyos MD CHEMISTRY ORDERABLE S [facility] [place] [address] documented in this encounter Visit Diagnoses Not [...] 0932 (Given - Provider: Fabienne Morelos RN)1041 ([employer] [facility] Hold - Provider: Admin Adt - Reason: Transfer to a Procedural area)1224 ([employer] [facility] Unhold - Provider: Admin Adt) cephALEXin (Keflex) [...] 0932 (Given - Provider: Fabienne Morelos RN)1041 ([employer] [facility] Hold - Provider: Admin Adt - Reason: Transfer to a Procedural area)1224 ([employer] [facility] [employer] Unhold - Provider: Admin Adt) DULoxetine DR (Cymbalta) capsule 60 mg 60 mg, Oral, 2 TIMES DAILY, First dose on 06/08/21 at 2115, Until Discontinued, Routine 2140 (Given - Provider: Arturo Morris RN) 0837 (Given - Provider: Fabienne Morelos RN)2021 (Given - Provider: Emily Olmedo RN) 0932 (Given - Provider: Fabienne Morelos RN)1041 ([employer] [facility] [employer] Hold - Provider: Admin Adt - Reason: Transfer to a Procedural area)1224 ([employer] [facility] [employer] Unhold - Provider: Admin Adt) gabapentin (Neurontin) capsule 300 mg 300 mg, Oral, 3 TIMES DAILY, First dose on 06/08/21 at 2115, Until Discontinued, Routine 2140 (Given - Provider: Arturo Morris RN) 0837 (Given - Provider: Fabienne Morelos RN)152 (Given - Provider: Fabienne Morelos RN)202 (Given - Provider: Emily Olmedo RN) 0932 (Given - Provider: Fabienne Morelos RN)1041 ([employer] [facility] [employer] Hold - Provider: Admin Adt - Reason: Transfer to a Procedural area)1224 ([employer] [facility] [employer] Unhold - Provider: Admin Adt)1544 (Given - [...] - Reason: Transfer to a Procedural area)1224 ([employer] [facility] [employer] Unhold - Provider: Admin Adt) losartan (Cozaar) [...] - Reason: Transfer to a Procedural area)1224 ([employer] [facility] [employer] Unhold - Provider: Admin Adt) ranolazine ER [...] - Reason: Transfer to a Procedural area)1224 ([employer] [facility] [employer] Unhold - Provider: Admin Adt)1238 (Given - Provider: Fabienne Morelos RN) rosuvastatin (Crestor) tablet 40 mg 40 mg, Oral, EVERY EVENING, First dose on Thu06/10/21 at 1700, Until Discontinued, Routine 1041 (OCT Hold - Provider: Admin Adt - Reason: Transfer to a Procedural area)1224 ([employer] [facility] [employer] Unhold - Provider: Admin Adt)1633 (Given - [...] for scheduled level. Warning Vesicant/Irritant Medication , Routine, Indication for (Active or Suspected): Skin/Skin Structure 2241 (Given - Provider: Arturo Morris RN) [...] for scheduled level. Warning Vesicant/Irritant Medication , Routine, Indication for (Active or Suspected): Skin/Skin Structure 2023 (Given - Provider: Emily Olmedo RN) [...] - Reason: Transfer to a Procedural area)1224 ([employer] [facility] Unhold - Provider: Admin Adt) heparin (porcine) [...] Jose Damon MD - Comment: Contrast in Skip Hoist Engineer) lidocaine (Xylocaine) 1% (10 mg/mL) injection 3 mg 3 mg (0.3 mL), Subcutaneous, ONCE PRN, 1 dose, Starting on 06/08/21 at 1909, Until Thu06/10/21 at 2029, for discomfort with PIV insertion, Routine 1041 (OCT Hold - Pro vider: Admin Adt - Reason: Transfer to a Procedural area)1224 ([employer] [facility] [employer] [facility] Unhold - Provider: Admin Adt) lidocaine (Xylocaine) [...] - Reason: Transfer to a Procedural area)1224 ([employer] [...] - Reason: Transfer to a Procedural area)1224 ([employer] [...] PRN, Starting on 06/10/21 at 1053, Until Thu06/10/21 at 1147, Cath (Intra-Procedure) 1053 (New Bag - Prov ider: Naye Song RN - Comment: Skip Hoist Engineer Flush Line) verapamiL (Isoptin) (2.5 mg/mL) injection (CANCELED) ONCE PRN, Starting on 06/10/21 at 1116, Until Thu06/10/21 at 1147, Administer over 2 Minutes, Cath [...] HOURS SCHEDULED, First dose on Thu06/09/21 at 0000, Until Discontinued, CORRECTION BOLUS [1-4 [...] for scheduled level. Warning Vesicant/Irritant Medication , Routine, Indication for (Active or Suspected): Skin/Skin Structure And Vancomycin, trough (CANCELED) New collection, Timed, [...] PER HEPARIN PROTOCOL, Starting on 06/08/21 at 2002, Until 06/10/21 at 1148, Per Protocol, START [...] Routine documented in this encounter Care Teams Delivery Rep Relationship Specialty Start Date End Date Coni Lim MD [address] [place] [address] PCP - General 07/16/10 documented as of this encounter
--- OUTSIDE RECORDS SUMMARY | 2024-05-17 16:06 | XMS_ITS | Clinical Summary ---
Author Organization [facility] Address [facility] [place] [address] Care Team Providers Care Macaroni Press Operator Name Role Phone Coni Lim MD Primary Care Provider [phone] Allergies Active Allergy Reactions Criticality Noted Date [...] be different from the original. Notified by [facility] in [place], [place] pt will need PA for Brilinta. Had DR. Nagy complete PA form. CRC faxed to [facility] with Fax confirmation received.. CRC Faxed copy of Brilinta coupon to [facility]. 30 day supply will be able to be filled on Thursday 06/07. CRC contacted [email or web address] in [place], [place]. They confirmed they can dispense 10 90 mg tabs to pt until Thursday. Pt's Dasia notified by CRC of plan to fern picker Brilintal Rx at [facility] and then Full Rx from [facility] on Thursday. Pt's verbalized understanding. CRC notified Dr. Nagy of plan. Chester GRAHAM, RN Clinical Zipper Setter Lockstitch Pager [phone] Problem Noted Date Diagnosed Date Conjunctival lesion [...] with 3.5 X 18 mm JACINDA - [facility] 2009 post abnormal nuc stress +IW, EF normal - Recurrent angina, CCS class III - Cardiac catheterization 06/03/2012: 2 vessel CAD (LAD and LCX), +FFR of both lesions s/p PCI to pOM1 (3.0 x 18 mm Xience JACINDA) and mLAD (3.0 x 20 mm Promus Element JACINDA) Immunizations Name Administration Dates Next Due Influenza (Novel C2D1-86) Injectable 05/24/2009 Influenza PF, Split 07/30/2013 Influenza Trivalent w/Preservative 06/15/2012 Influenza Vaccine, Whole 05/24/2009,06/21/2008 Pneumococcal Polysaccharide (Pneumovax 23) 05/24 Family History Medical History Relation Comments Heart Disease Brother 1 Heart Disease Brother 2 Diabetes Brother 3 Diabetes Brother 4 Hypertension Brother 5 Hypertension Brother 6 Hyperlipidemia Brother 7 Hyperlipidemia Brother 8 Heart Disease Father Myocardial Infarction Father DC, CABG Diabetes Mother Heart Disease Mother Hyperlipidemia [...] vaccine (0-59 yrs) (1) 1986 Tdap adult (Retired) 1986 Tetanus vaccine (Retired) 1986 Pneumococcal Vaccine: At-Ris k 5-64yrs (2 of 2 - PCV) 05/24/2010 05/24/2009 Zoster vaccine (1 of 2) 2017 DM Hemoglobin A1c 06/15/2019 03/15/2019, , 11/22/2016, Additional history exists Advance Directive 2022 DM Creatinine yearly 06/10/2022 06/10/2021, 06/10/2021, 2021, Additional history exists Covid-19 Vaccine (1 - 3-2 4 season) 2024 Influenza (Flu) vaccine (1 [...] BMP w/fasting Glucose (06/10/2021 3:44 AM EDT) [facility] Glucose Fasting 195(H) 65 - 99 [...] of Diabetes Mellitus, Position Statement from the [place] [employer]. ??Diabetes Care, Volume 33, [...] S [facility] [place] [address] * (ABNORMAL) Hemoglobin A1c (03/15/2019 5:01 AM [...] Mellitus, Diabetes Care 2013; 36: Suppl. 1, M35-64 Estimated Average Glucose 148 mg/dL [facility] [...] into estimated average glucose values. ??Diabetes Care 2008:31(8):0079-6755. Blood specimen (specimen) 03/15/2019 5:01 AM EDT 03/15/2019 5:12 AM EDT Narrative Resulting Agency Comment Spec In Lab Siri Bush SUPERVISOR INSTRUMENT REPAIR CHEMISTRY ORDERABL ES [facility] [place] [address] from Last 3 Months or Most Recently [...] is based on Patients wishes. Care Teams Macaroni Press Operator Relationship Specialty Start Date End Date Coni Lim MD [address] [place] [address] PCP - General 07/16/10
--- OUTSIDE RECORDS SUMMARY | 2024-05-17 16:06 | XMS_ITS | Encounter Summary ---
Author Organization [facility] Address [facility] [place] [address] Care Team Providers Care Retail Pharmacist Name Role Phone Coni Lim MD Primary Care Provider [phone] Encounter Details Date Type Department Care Team (Late st Contact Info) Description 04/07/2023 External [place] [address] Social History Tobacco Use Types Packs/Day Years [...] on filedocumented in this encounter Care Teams Retail Pharmacist Relationship Specialty Start Date End Date Coni Lim MD [address] [place] [address] PCP - General 07/16/10 documented as of this encounter
--- OUTSIDE RECORDS SUMMARY | 2024-05-17 16:07 | XMS_ITS | Encounter Summary ---
Author Organization [facility] Address [facility] [place] [address] Care Team Providers Care Sky Line Yarder Name Role Phone Coni Lim MD Primary Care Provider [phone] Reason for Visit * Auth/Cert Specialty Diagnoses / Procedures Referred By Ruby t Referred To Contact Diagnoses ACS (acute coronary syndrome) UNSTABLE ANGINA Referral ID Status Reason Start Date Expiration Date Visits Re quested Visits Authorized [id number] 1 1 Encounter Details Date Type Department Care Team (Latest Contact Info) Description 03/14/2019 12:38 AM EDT - 03/16/2019 3:55 PM EDT Hospital Encounter Card[place] [id number] Wale Mckeon MD [facility] [place] [address] [address] Unstable angina Discharge Disposition: Home Social History [...] Romeo Coe Patient Age: 53 y.o. Language: American Race: White Ethnicity: Not nor Admit date: [...] MD Esperanza Solis, KRYSTINA Bush, DIRECTOR OF GOLF [phone] Discharge Diagnoses (Hospital Problems) and Secondary Diagnoses [...] TIA and GERD who was transferred from [facility] with a diagnosis of UAP. ?? [...] was called. ?? His last admission to [facility] was in Aug 2017 when he presented [...] Heparin gtt and transferred to [facility] for cardiac cath. Hospital Course: Undifferentiated Chest Pain - Coronary Vasospasm/Microvessel angina vs Non- Cardiac Chest Pain Romeo Coe is a 53 yo M transferred from [facility] for evaluation of unstable angina. Troponins [...] PF, Split 07/30/2013 ??? Influenza Vaccine (Novel) [id number], Injectable 05/24/2009 ??? Influenza Vaccine w/Preservative, Split [...] appointments: During 8am-5pm Thursday through Thursday call [phone] to speak with a nurse in the cardiology clinic All other times call [phone] and ask to speak to the director of field service music rehabilitation therapist. Return to work: Ok to resume, no heavy lifting for one week (nothing over 10 lbs) Driving: No driving for 48 hours after catheterization. Follow up Appointments: PCP Coni Lim MD/Keo Ballard [phone] Your follow up appointment is scheduled for March 25, 2019 at 10 45 am Cardiology- Dr. Lawson - [phone] (First apt at [facility], then you will be seen at [facility] thereafter).Your follow up appointment is scheduled for Saturday April 13, 2019 at 1:15 pm Home oxygen therapy: N/A Arrangements for VNA/home care: none Discharge References/Attachments None Esperanza Collier APRN Cardiovascular Medicine Pager [phone] 03/16/2019 documented in this encounter Discharge Instructions * Discharge Instructions* Esperanza Collier APRN - 03/16/2019 3:00 PM EDT Call your doctor if: Chest pain, shortness of breath, pain or swelling in legs occurs. If you have non-emergent questions between now and the time of your follow up appointments: During 8am-5pm Thursday through Thursday call [phone] to speak with a nurse in the cardiology clinic All other times call [phone] and ask to speak to the director of field service music rehabilitation therapist. Return to work: Ok to resume, no heavy lifting for one week (nothing over 10 lbs) Driving: No driving for 48 hours after catheterization. Follow up Appointments: PCP Coni Lim MD/Keo Ballard [phone] Your follow up appointment is scheduled for March 25, 2019 at 10 45 am Cardiology- Dr. Lawson - [phone] (First apt at [facility], then you will be seen at [facility] thereafter).Your follow up appointment is scheduled [...] Progress Note Patient Name: Romeo Coe Service: CERAMIC DESIGN ENGINEER / PA Responsible Attending: Wale Mckeon MD [...] Full code Discussed with MD Esperanza Brar [facility] Cardiovascular Medicine Pager [phone] 03/16/2019 Attending Lock Up Worker Addendum: This patient was seen in conjunction with Esperanza Collier as part of a shared visit. I have independently interviewed and examined the patient and reviewed the pertinent diagnostic information. I agree with the principal findings documented above. The assessment and plan were formulated in discussion with me. Ruled out PE with CT today. Ready for discharge on medical therapies. Wale Mckeon MD, [facility], [facility] Staff Lock Up Worker pager [phone] * Jacqueline Montes De Oca RN - [...] Progress Note Patient Name: Romeo Coe Service: CERAMIC DESIGN ENGINEER / PA Responsible Attending: Wale Mckeon MD Reason for continued hospitalization: Evaluation and management of unstable angina S/p [facility] Medication adjustment Active Problems: Active [...] Full code Discussed with MD Esperanza Brar [facility] Cardiovascular Medicine Pager [phone] 03/15/2019 Attending Lock Up Worker Addendum: This patient was seen in conjunction [...] limited us thus far. Wale Mckeon MD, [facility], [facility] Staff Lock Up Worker pager [phone] * Wale Mckeon MD - 03/14/2019 9:23 AM EDT Images from the original note were not included. Inpatient Cardiology Progress Note Patient Name: Romeo Coe Service: CERAMIC DESIGN ENGINEER / PA Responsible Attending: Wale Mckeon MD Reason for continued hospitalization: Evaluation and management of unstable angina Awaiting [facility] today Active Problems: Active Hospital Problems Diagnosis ??? ACS (acute coronary syndrome) Resolved Hospital Problems No resolved problems to display. Interval History: Admitted overnight in the setting of unstable angina. Troponins negative. TTE with preserved EF at 63% and no WMA. Awaiting [facility] today. Review of Systems: Review [...] report for additional findings. Assessment: Mr. Romeo Ceo is a 53 y/o active smoker male [...] Discussed with MD Siri Brar, DIRECTOR OF GOLF Pager [phone] 03/14/2019 Attending Lock Up Worker Addendum: This patient was seen in conjunction [...] today (include vasodilator) Wale Mckeon MD, FAC, [facility] Staff Lock Up Worker pager [phone] documented in this encounter H&P Notes * [...] TIA and GERD who was transferred from [facility] with a diagnosis of UAP. He [...] EMS was called. His last admission to [facility] was in Aug 2017 when he presented [...] started on Heparin gtt and transferred to [facility] for cardiac cath. Past Medical History: Past [...] file Gets together: Not on file Attends muslim service: Not on file Active member of [...] Lives with and daughter at home in [place], [place]. He is disabled now. He used [...] edema . Pulses palpable, no calf tenderness Neuro/PUSHER OPERATOR: AAO x 3, No evident deficits Skin/Integumentary: [...] multiple PCIs since 2011. Last Cath at [facility] in Aug 2017 that showed the patency [...] with good effect. Right radial cath site SAP FICO ARCHITECT, +pulses, no hematoma present. Pt able to [...] OUTCOME EVALUATION NOTE: OUTCOME SUMMARY: Patient to manager laboratory today. No interventions. Right radial cath site [...] TIA and GERD who was transferred from [facility] with a diagnosis of UAP Past Medical History: Diagnosis Date ??? Allergy ??? CAD (coronary artery disease), non-obstructive 05/31/2012 ??? Depression ??? DM (diabetes mellitus) 05/31/2012 ??? Dyslipidemia 05/31/2012 ??? GERD (gastroesophageal reflux disease) 05/31/2012 ??? HTN (hypertension) 05/31/2012 ??? Hx-TIA (transient ischemic attack) 06/03/2012 ??? Smoker 05/31/2012 Hospitalizations Within the Past 30 Days: no [facility] admits in last 30 days. Anticipated Length Of Stay (If known): 1-3 days Current Decision-Making Capacity: Patient is A&Ox4 and able to make all medical decisions Advance Care Planning: Full Code Not in EPIC.This author discussed ADs with patient and offered advance directive booklet and forms,patient deferred will discuss with family at a later time. [place] and [place] of guardianship explained. If AD's have not been completed then Spouse Dasia would be surrogate decision maker per [place] decision [place] law. Current Coping/Education/Information Needs: Current coping questions and concerns have been addressed. Current Functional Ability: assist of staff Functional Status Prior to Admission: independent with ADLs, driving, no DME used at baseline. Home Environment: lives in 2 level house, bedroom downstairs, no stairs to enter from outside[address] [place] [address] Social & Family Supports/Community Resources: lives with spouse and daughter Extended Emergency Contact Information Primary Emergency Contact: Dasia Coe Address: [address] [place] [address] [facility] Relation: Spouse Health/Prescription Coverage: Primary Insurance: MEDICARE Secondary Insurance: N/A Prescription Coverage: Yes Preferred Pharmacy: [id number] [address] [address] Other: none Primary Care Provider: Coni Lim MD [phone] Patient/Caregiver Goals of Treatment: return to previous [...] of care planning. Rashmi Simmons, VERO Nurse Microchip Specialist Pager [phone] * Op Note - Lexus Gutiérrez MD - 03/14/2019 10:54 AM EDT [facility] Operative Note Patient Name: Romeo Coe : [id number] MR#: [id number] Case Date: 03/14/2019 Surgeon: Surgeon(s) and Role: [...] evident early complications. Results discussed with service strip deburrer Dr Mckeon, and with the patient. He did not have family that he preferred we call. He needs to be connected with a referring strip deburrer locally (seen at [facility]). A time-out was conducted prior to [...] Dean had a good night. Arrived from [facility] hospital on Heparin drip. Denied chest [...] further details. Ed Simpson MD 03/14/2019 Pager [phone] documented in this encounter Plan of Treatment [...] below. ? Electronically signed by: Adithya Hutchison [facility] ([phone]), at 03/16/2019 1:06 PM Narrative 03/16/2019 1:06 [...] please contact the number below. Esperanza Collier APRN IMG CT ORDERABLES * [...] CARE TEST O RDERABLES Performing Organization Address City/[facility]/ZIP Co de Phone Number [facility] [place] [address] * POCT Glucose (03/16/2019 7:38 AM EDT) Glucose, POC 102 65 - 199 mg/dL [facility] Comment: Supplemental ranges: <140 mg/dL before meals <180 mg/dL all other times of the day Blood specimen (specimen) 03/16/2019 7:38 AM EDT 03/16/2019 7:38 AM EDT Wale Mckeon MD POINT OF CARE TEST O RDERABLES Performing Organization Address [facility] Co de Phone Number [facility] [place] [address] * EKG 12 Lead (03/16/2019 7:07 AM EDT) Ventricular rate 59 BPM MUSE SYSTEM Atrial Rate 59 BPM MUSE SYSTEM P-R Interval 148 ms MUSE SYSTEM QRS Duration 88 ms MUSE SYSTEM Q-T Interval 408 ms MUSE SYSTEM QTC Calculated (Bezet) 403 ms MUSE SYSTEM Calculated P Garwood 7 degrees MUSE SYSTEM Calculated R Garwood 23 degrees MUSE SYSTEM Calculated T Garwood 40 degrees MUSE SYSTEM INTERPRETATION Sinus bradycardia Otherwise normal ECG When compared with ECG of 15-MAR-2019 20:23, No significant change was found Confirmed by MD SOUMYA, JENNIFER ([id number]) on 03/16/2019 8:30:39 AM MUSE SYSTEM 03/16/2019 7:07 AM EDT 03/16/2019 8:30 AM EDT Siri Bush APRN ECG ORDERABLES Performing Organization Address City/[facility]/ZIP Co de Phone Number MUSE SYSTEM * Differential, Automated (03/16/2019 5:07 AM EDT) Neutrophil % 48.9 % [facility] Neutrophil Absolute 3.25 1.70 - 6.10 x10(3)/[facility] LABORATORY Lymph % 38.1 % [facility] Lymphocytes Abs 2.5 0.9 - 3.2 x10(3)/[facility] LABORATORY Monocyte % 8.0 % [facility] Monocyte Abs 0.5 0.3 - 0.9 x10(3)/[facility] LABORAT[facility] Eos % 4.2 % [facility] Eosinophils Abs 0.3 0.0 - 0.4 x10(3)/[facility] LABORATORY Basophil % 0.5 % [facility] Baso Absolute 0.0 0.0 - 0.1 x10(3)/[facility] LABORATORY Immature Gran % 0.30 % [facility] Comment: Immature granulocytes(IG's)percentage and absolute count will include metamyelocytes, myelocytes, and promyelocytes. Blood smears from CBCs yielding IG's will be scanned manually for concordance. If this scan disagrees with the automated IG or if promyelocytes are noted, a manual differential will be performed. Immature Gran Absolute 0.02 0.00 - 0.04 x10(3)/[facility] LABORATORY Blood specimen (specimen) 03/16/2019 5:07 AM EDT 03/16/2019 5:24 AM EDT Narrative Resulting Agency Comment Spec In Lab Siri Bush DIRECTOR OF GOLF HEMATOLOGY ORDERAB LES Performing Organization Address City/State/[facility] Co de Phone Number [facility] [place] [address] * Hemogram (03/16/2019 5:07 AM EDT) White Blood Cell 6.6 4.0 - 9.5 x10(3)/[facility] LABORATORY Red Blood Cell 5.33 4.58 - 5.54 x10(6)/[facility] LABORAT[facility] Hemoglobin 15.6 13.7 - 16.5 [...] CENTER LABORATORY Platelet 154 145 - 357 x10(3)/[facility] LABORATORY RDW Standard Deviation 38.3 36.0 - 45.0 [facility] RDW coefficient of variation 12.5 11.4 - 13.8 % [facility] Mean Platelet Volume 10.9 7.6 - 12.9 [facility]OR[facility] NRBC% auto 0.0 % [facility] NRBC Absolute 0.000 0.000 - 0.000 x10(3)/[facility] LABORATORY Blood specimen (specimen) 03/16/2019 5:07 AM EDT 03/16/2019 5:24 AM EDT Narrative Resulting Agency Comment Spec In Lab Siri Bush APRN HEMATOLOGY ORDERAB LES [facility] [place] [address] * (ABNORMAL) BMP w/fasting Glucose (03/16/2019 5:07 [...] of body mass or the acutely ill. [email or web address] eGFR 113 >=60 mL/min/1. 73 m?? [facility] Comment: The eGFR was calculated using the CKD-EPI equation. As with all creatinine based estimates of kidney function, eGFR values calculated with the CKD-EPI equation are not accurate in patients with acute kidney failure, extremes of body mass or the acutely ill. [email or web address] Blood specimen (specimen) 03/16/2019 5:07 AM EDT 03/16/2019 5:24 AM EDT Narrative Resulting Agency Comment Spec In Lab Siri Bush APRN CHEMISTRY ORDERABL ES [facility] [place] [address] * EKG 12 Lead (03/15/2019 8:23 PM EDT) Ventricular rate 65 BPM MUSE SYSTEM Atrial Rate 65 BPM MUSE SYSTEM P-R Interval 140 ms MUSE SYSTEM QRS Duration 86 ms MUSE SYSTEM Q-T Interval 384 ms MUSE SYSTEM QTC Calculated (Bezet) 399 ms MUSE SYSTEM Calculated P Garwood 16 degrees MUSE SYSTEM Calculated R Garwood 39 degrees MUSE SYSTEM Calculated T Garwood 37 degrees MUSE SYSTEM INTERPRETATION Normal sinus rhythm Normal ECG When compared with ECG of 15-MAR-2019 10:49, No significant change was found Confirmed by MD SOUMYA, JENNIFER ([id number]) on 03/16/2019 12:17:34 AM MUSE SYSTEM 03/15/2019 8:23 PM EDT 03/16/2019 12:17 AM EDT Wale Mckeon MD ECG ORDERABLES Performing Organization Address City/[facility]/ZIP Co de Phone Number MUSE SYSTEM [...] RDERABLES [facility] [place] [address] * POCT Glucose (03/15/2019 4:58 PM EDT) Glucose, POC 109 65 - 199 mg/dL [facility] Comment: Supplemental ranges: <140 mg/dL before meals <180 mg/dL all other times of the day Blood specimen (specimen) 03/15/2019 4:58 PM EDT 03/15/2019 4:58 PM EDT Wale Mckeon MD POINT OF CARE TEST O EVITA Performing Organization Address City/[facility]/ZIP Co de Phone Number [facility] [place] [address] * POCT Glucose (03/15/2019 11:47 AM EDT) Pathologist [facility] Glucose, POC 110 65 - 199 mg/dL [facility] Comment: Supplemental ranges: <140 mg/dL before meals <180 mg/dL all other times of the day Blood specimen (specimen) 03/15/2019 11:47 AM EDT 03/15/2019 11:47 AM EDT Wale Mckeon MD POINT OF CARE TEST O EVITA Performing Organization Address [facility] Co de Phone Number [facility] [place] [address] * Troponin (03/15/2019 11:17 AM EDT) [facility] Troponin-T <0.01 0.00 - 0.00 ng/mL [facility] [...] ischemia ?? New or presumed new significant PL-uviszwd-V wave (ST-T) changes or new left bundle [...] additional sample may be indicated. Reference: Third Center Cross Definition of Myocardial Infarction. Journal of the [place] College [employer] 2012;60:1581-98 Blood specimen (specimen) 03/15/2019 11:17 AM EDT 03/15/2019 11:42 AM EDT Narrative Resulting Agency Comment Spec In Lab Esperanza Collier KRYSTINA CHEMISTRY ORDERABLES Performing Organization Address [facility] Co de Phone Number [facility] [place] [phone] * EKG 12 Lead (03/15/2019 10:49 AM EDT) Ventricular rate 59 BPM MUSE SYSTEM Atrial Rate 59 BPM MUSE SYSTEM P-R Interval 140 ms MUSE SYSTEM QRS Duration 86 ms MUSE SYSTEM Q-T Interval 398 ms MUSE SYSTEM QTC Calculated (Bezet) 394 ms MUSE SYSTEM Calculated P Garwood 13 degrees MUSE SYSTEM Calculated R Garwood 42 degrees MUSE SYSTEM Calculated T Garwood 49 degrees MUSE SYSTEM INTERPRETATION Sinus bradycardia Otherwise normal ECG When compared with ECG of 15-MAR-2019 07:08, No significant change was found Confirmed by MD Buchanan Timothy ([id number]) on 03/15/2019 12:09:31 PM MUSE SYSTEM 03/15/2019 10:4 9 AM EDT 03/15/2019 12:09 PM EDT Esperanza Vicki Collier APRN ECG ORDERABLES Performing Organization Address [facility] Phone Number MUSE SYSTEM * POCT Glucose [...] O RDERABLES Performing Organization Address [facility] Co de Phone Number [facility] [place] [address] * EKG 12 Lead (03/15/2019 7:08 AM EDT) Ventricular rate 58 BPM MUSE SYSTEM Atrial Rate 58 BPM MUSE SYSTEM P-R Interval 140 ms MUSE SYSTEM QRS Duration 90 ms MUSE SYSTEM Q-T Interval 410 ms MUSE SYSTEM QTC Calculated (Bezet) 402 ms MUSE SYSTEM Calculated P Garwood 5 degrees MUSE SYSTEM Calculated R Garwood 24 degrees MUSE SYSTEM Calculated T Garwood 34 degrees MUSE SYSTEM INTERPRETATION Sinus bradycardia Otherwise normal ECG When compared with ECG of 14-MAR-2019 19:41, No significant change was found Confirmed by MD SOUMYA, JENNIFER ([id number]) on 03/15/2019 9:53:01 AM MUSE SYSTEM 03/15/2019 7:08 AM EDT 03/15/2019 9:53 AM EDT Siri Panchal Rachelle KRYSTINA ECG ORDERABLES MUSE SYSTEM * Differential, Automated (03/15/2019 5:01 AM EDT) Pathologist [facility] Neutrophil % 46.9 % [facility] Neutrophil Absolute 2.78 1.70 - 6.10 x10(3)/[facility] LABORAT[facility] Lymph % 40.6 % [facility] Lymphocytes Abs 2.4 0.9 - 3.2 x10(3)/[facility] LABORATORY Monocyte % 7.7 % [facility] Monocyte Abs 0.5 0.3 - 0.9 x10(3)/[facility] LABORATORY Eos % 3.7 % [facility] Eosinophils Abs 0.2 0.0 - 0.4 x10(3)/[facility] LABORATORY Basophil % 0.8 % [facility] Baso Absolute 0.0 0.0 - 0.1 x10(3)/[facility] LABORATORY Immature Gran % 0.30 % [facility] Comment: Immature granulocytes(IG's)percentage and absolute count will include metamyelocytes, myelocytes, and promyelocytes. Blood smears from CBCs yielding IG's will be scanned manually for concordance. If this scan disagrees with the automated IG or if promyelocytes are noted, a manual differential will be performed. Immature Gran Absolute 0.02 0.00 - 0.04 x10(3)/[facility] LABORATORY Blood specimen (specimen) 03/15/2019 5:01 AM EDT 03/15/2019 5:12 AM EDT Narrative Resulting Agency Comment Spec In Lab Siri Bush APRN HEMATOLOGY ORDERAB LES [facility] [place] [address] * Hemogram (03/15/2019 5:01 AM EDT) White Blood Cell 5.9 4.0 - 9.5 x10(3)/[facility] LABORATORY Red Blood Cell 4.95 4.58 - 5.54 x10(6)/[facility] LABORATORY Hemoglobin 14.6 13.7 - 16.5 gm/dL [facility] Hematocrit 43.1 40.5 - 48.5 % [facility] Mean Cell Volume 87.1 82.9 - 93.1 [facility] Mean Cell Hemoglobin 29.5 27.5 - 32.1 pg [facility] Mean Cell Hemoglobin Concentration 33.9 32.0 - 35.7 gm/dL [facility] Platelet 156 145 - 357 x10(3)/[facility] LABORATORY RDW Standard Deviation 40.2 36.0 - 45.0 [facility] RDW coefficient of variation 12.5 11.4 - 13.8 % [facility] Mean Platelet Volume 10.4 7.6 - 12.9 [facility] NRBC% auto 0.0 % [facility] NRBC Absolute 0.000 0.000 - 0.000 x10(3)/[facility] LAB[facility] Blood specimen (specimen) 03/15/2019 5:01 AM EDT 03/15/2019 5:12 AM EDT Narrative Resulting Agency Comment Spec In Lab Siri Bush DIRECTOR OF GOLF HEMATOLOGY ORDERAB LES [facility] [place] [address] * (ABNORMAL) BMP w/fasting Glucose (03/15/2019 5:01 [...] of body mass or the acutely ill. [email or web address]/[facility] eGFR 114 >=60 mL/min/1. 73 m?? [facility] Comment: The eGFR was calculated using the CKD-EPI equation. As with all creatinine based estimates of kidney function, eGFR values calculated with the CKD-EPI equation are not accurate in patients with acute kidney failure, extremes of body mass or the acutely ill. [email or web address]/[facility] Blood specimen (specimen) 03/15/2019 5:01 AM EDT 03/15/2019 5:12 AM EDT Narrative Resulting Agency Comment Spec In Lab Siri Bush APRN CHEMISTRY ORDERABL ES [facility] [place] [address] * (ABNORMAL) Hemoglobin A1c (03/15/2019 5:01 AM [...] Mellitus, Diabetes Care 2013; 36: Suppl. 1, S77-13 Estimated Average Glucose 148 mg/dL [facility] [...] into estimated average glucose values. ??Diabetes Care 2008:31(8):0805-5952. Blood specimen (specimen) 03/15/2019 5:01 AM EDT 03/15/2019 5:12 AM EDT Narrative Resulting Agency Comment Spec In Lab Siri Bush APRN CHEMISTRY ORDERABL ES [facility] [place] [address] * Lipid Panel (03/15/2019 5:01 AM EDT) Cholesterol, Total 207 mg/dL [facility] Comment: Lower Risk: <200 mg/dL Average Risk: 200-239 mg/dL Higher Risk: >wq=810 mg/dL Triglyceride 256 mg/dL [facility] Comment: Average Risk/Lower Risk: <150 mg/dL Borderline High Risk: 150-199 mg/dL High Risk: 200-499 mg/dL Very High Risk: >pi=976 mg/dL HDL Cholesterol 28 mg/dL [facility] Comment: Males: ?? Higher Risk: <40 mg/dL Females: ?? HIgher Risk: <50 mg/dL LDL Cholesterol 128 mg/dL [facility] Comment: Lowest Risk: <100 mg/dL Lower Risk: 100-129 mg/dL Borderline High Risk: 130-159 mg/dL High Risk: 160-189 mg/dL Very High Risk: >yf=057 mg/dL Cholesterol/HDL Ratio 7.4 ratio [facility] Lipid Interpretation See Note [facility] Comment: Lipid management should be guided by a patient? s ASCVD risk, goals and preferences. ACC/AHA Guidelines recommend high intensity statin if clinical ASCVD or LDL greater than or equal to 190 mg/dL. http://Max-Viz.com/ESL-HTK-[email or web address] Adults aged 40-75 with LDL 70-189 mg/dL should have their 10 year ASCVD risk estimated with the ACC/AHA ASCVD risk commercial construction estimator http://tools.acc.org/LSILB-Gpxb-Teonirtrn/ Statin should be discussed if risk greater [...] ES [facility] [place] [address] * POCT Glucose (03/14/2019 7:50 PM EDT) Glucose, POC 123 65 - 199 mg/dL [facility] Comment: Supplemental ranges: <140 mg/dL before meals <180 mg/dL all other times of the day Blood specimen (specimen) 03/14/2019 7:50 PM EDT 03/14/2019 7:50 PM EDT Wale Mckeon MD POINT OF CARE TEST O RDERABLES Performing Organization Address [facility] Co de Phone Number [facility] [place] [address] * EKG 12 Lead (03/14/2019 7:41 PM EDT) [facility] Ventricular rate 59 BPM MUSE SYSTEM Atrial Rate 59 BPM MUSE SYSTEM P-R Interval 142 ms MUSE SYSTEM QRS Duration 80 ms MUSE SYSTEM Q-T Interval 396 ms MUSE SYSTEM QTC Calculated (Bezet) 392 ms MUSE SYSTEM Calculated P Garwood 40 degrees MUSE SYSTEM Calculated R Garwood 37 degrees MUSE SYSTEM Calculated T Garwood 46 degrees MUSE SYSTEM INTERPRETATION Sinus bradycardia Otherwise normal ECG When compared with ECG of 14-MAR-2019 01:06, No significant change was found Confirmed by MD SOUMYA, JENNIFER ([id number]) on 03/15/2019 9:52:58 AM MUSE SYSTEM 03/14/2019 7:41 PM EDT 03/15/2019 9:52 AM EDT Wale Mckeon MD ECG ORDERABLES Performing Organization Address [facility] de Phone Number MUSE SYSTEM * POCT Glucose (03/14/2019 4:21 PM EDT) [facility] Glucose, POC 128 65 - 199 mg/dL [facility] Comment: Supplemental ranges: <140 mg/dL before meals <180 mg/dL all other times of the day Blood specimen (specimen) 03/14/2019 4:21 PM EDT 03/14/2019 4:21 PM EDT Wale Mckeon MD POINT OF CARE TEST O RDERABLES Performing Organization Address [facility] Co de Phone Number [facility] [place] [address] * Troponin (03/14/2019 3:10 PM EDT) [facility] Troponin-T <0.01 0.00 - 0.00 ng/mL [facility] [...] ischemia ?? New or presumed new significant YT-aotcone-O wave (ST-T) changes or new left bundle [...] additional sample may be indicated. Reference: Third Center Cross Definition of Myocardial Infarction. Journal of the [place] College [employer] Cardiology 2012;60:1581-98 Blood specimen (specimen) 03/14/2019 3:10 PM EDT 03/14/2019 3:19 PM EDT Narrative Resulting Agency Comment Spec In Lab Wale Mckeon MD CHEMISTRY ORDERABLES Performing Organization Address City/State/[facility] Co de Phone Number [facility] [place] [address] * XR Chest PA or AP 1 [...] POINT OF CARE TEST O RDERABLES [facility] [address] * CARDIAC CATHETERIZATION (03/14/2019 10:55 AM EDT) Anatomical Region Laterality Modality Other Narrative 03/15/2019 4:29 PM EDT ?[facility] ? Cardiac Catheterization/Intervention Report ? Patient Name: Coe, Romeo A. ? Procedure Date: 03/14/2019 ? A #: [id number] ? Primary Physician: Lexus Gutiérrez ? Case #: [id number] ? File Name: [id number] ? Catheterization Order Number: [id number] ? [facility] ? Final Report [place], [place] ? Patient Name: ? Romeo Coe ? ID#: ?[id number] ? : ?1965 ? Procedure Date: ? [...] procedure was Urgent. The indication for ?the manager laboratory visit is ACS less than or equal [...] Procedure Note Lexus Gutiérrez MD - 08/13/2019 [facility] Cardiac Catheterization/Intervention Report Patient Name: Romeo Coe Procedure Date: 03/14/2019 A #: [id number] Primary Physician: Lexus Gutiérrez Case #: File Name: [id number] Catheterization Order Number: [id number] [facility] FinalReport [place], [place] Patient Name: Romeo Coe ID#:[id number] :1965 Procedure Date: March 14, 2019 Case [...] patient was designated as ASAClass III. The [facility] clinical frailty scale is 2: Well. Diagnostic Tests: Prior Coronary Angiography: Prior coronary angiography was performed on 09/13/2017 andshowed non-obstructive CAD. LV ejection fraction within 6 months is63%. Electrocardiography: EKG was assessed by ECG. EKG was Normal. Medications Prior to Procedure: ASA, Beta Agatha and Statin. Indications for Diagnostic Cath: The priority of the diagnostic procedure was Urgent. The indicationfor the manager laboratory visit is ACS less than or equal [...] sedation nurse. Case time =00:24. Dr. Lexus Gutéirrez M.D. performed the coronary angiography andleft heart [...] ischemia ?? New or presumed new significant UM-fqxqwwr-X wave (ST-T) changes or new left bundle [...] additional sample may be indicated. Reference: Third Center Cross Definition of Myocardial Infarction. Journal of the [place] College of Cardiology 2012;60:1581-98 Blood specimen (specimen) 03/14/2019 8:53 AM EDT 03/14/2019 9:06 AM EDT Narrative Resulting Agency Comment Spec In Lab Wale Mckeon MD CHEMISTRY ORDERABLES [facility] [place] [address] * (ABNORMAL) Differential, Automated (03/14/2019 8:53 AM EDT) Neutrophil % 33.7 % [facility] Neutrophil Absolute 2.11 1.70 - 6.10 x10(3)/ L [facility] Lymph % 52.4 % [facility] Lymphocytes Abs 3.3(H) 0.9 - 3.2 x10(3)/ L [facility] Monocyte % 7.6 % [facility] Monocyte Abs 0.5 0.3 - 0.9 x10(3)/mc L [facility] Eos % 4.9 % [facility] Eosinophils Abs 0.3 0.0 - 0.4 x10(3)/[facility] LABORATORY Basophil % 1.1 % [facility] [...] S [facility] [place] [address] * Hemogram (03/14/2019 8:53 AM EDT) White Blood Cell 6.3 4.0 - 9.5 x10(3)/[facility] LABORATORY Red Blood Cell 5.11 4.58 - 5.54 x10(6)/[facility] LABORATORY Hemoglobin 14.9 13.7 - 16.5 gm/dL [facility] Hematocrit 44.2 40.5 - 48.5 % [facility] Mean Cell Volume 86.5 82.9 - 93.1 [facility] LAB[facility] Mean Cell Hemoglobin 29.2 27.5 - 32.1 pg [facility] Mean Cell Hemoglobin Concentration 33.7 32.0 - 35.7 gm/dL [facility] Platelet 156 145 - 357 x10(3)/[facility] LABORATORY RDW Standard Deviation 40.3 36.0 - 45.0 [facility] RDW coefficient of variation 12.6 11.4 - 13.8 % [facility] Mean Platelet Volume 10.7 7.6 - 12.9 [facility] LAB[facility]ORY NRBC% auto 0.0 % [facility] NRBC Absolute 0.000 0.000 - 0.000 x10(3)/[facility] LABORATORY Blood specimen (specimen) 03/14/2019 8:53 AM EDT 03/14/2019 9:06 AM EDT Narrative Resulting Agency Comment Spec In Lab Ed Simpson MD HEMATOLOGY ORDERABLE S [facility] [place] [address] * Heparin (unfractionated) Level (03/14/2019 8:53 AM EDT) Pathologist [facility] UF Heparin 0.37 IU/mL [facility] [...] ORDERABLE S Performing Organization Address [facility]/State/[facility] Co de Phone Number [facility] [place] [address] * ECHO COMPLETE (03/14/2019 8:37 AM EDT) [facility] EF 63 HEARTLAB SYSTEM Anatomical Region Laterality Modality Other 03/14/2019 Narrative 03/14/2019 8:45 AM EDT Procedure: ?Transthoracic Echocardiogram Patient: ?LAQUITA Pop ? (Age): 1965(53y) Med Rec#: ? [id number] ?Sex: ?M ? Site Loc: ? [facility] ?Ht / Wt: ??177(cm)/101(kg) Pt. Loc: ?Adult Floor ? BSA: ?2.18 Study Date: ?? 03/14/2019 ?Pt. Type: Inpatient Tape: ? Referring: Ed Simpson Reading: Christos Buchanan ([id number]) Leaf Stripper: Yessi Webb [facility] Diagnosis: *Unstable angina (I20.0) BP: ? [...] E-wave Vmax ?0.6 ?m/sec ? MV deceleration btdp766.5 ?msec ? MV A-wave Vmax ?0.4 ?m/sec [...] ? Mid-Inferior ?Normal ? Mid-Inferoseptal ?Normal ? [place]-Septal ? Normal ? [place]-Anterior ? Normal ? [place]-Lateral ?Normal ? [place]-Inferior ? Normal ? [place]-Tip ?Normal ? This report has been electronically signed by: Christos Buchanan M.D. ? 03/14/2019 08:45:08 Images reviewed and interpretation verified [facility] Cardiac [facility]trasound [facility] Procedure Note Christos Buchanan MD - 03/14/2019 Procedure: Transthoracic Echocardiogram Patient: LAQUITA Pop (Age): 1965(53y) Med Rec#: [id number] Sex: M Site Loc: [facility] Ht / Wt: 177(cm)/101(kg) Pt. Loc: Adult Floor BSA: 2.18 Study Date: 03/14/2019 Pt. Type: Inpatient Tape: Referring: Ed Simpson Reading: Christos Buchanan ([id number]) Leaf Stripper: Yessi Webb [facility] Diagnosis: *Unstable angina (I20.0) BP: 104/58 [...] MV E-wave Vmax 0.6 m/sec MV deceleration lmxd598.5 msec MV A-wave Vmax 0.4 m/sec MV [...] Normal Mid-Posterolateral Normal Mid-Inferior Normal Mid-Inferoseptal Normal [place]-Septal Normal [place]-Anterior Normal [place]-Lateral Normal [place]-Inferior Normal [place]-Tip Normal This report has been electronically signed by: Christos Buchanan M.D. 03/14/2019 08:45:08 Images reviewed and interpretation verified [facility] Ed Simpson MD ECHO [...] O RDERABLES Performing Organization Address [facility] Co de Phone Number [facility] [place] [address] * (ABNORMAL) Chloride (03/14/2019 3:28 AM EDT) Chloride 108(H) 98 - 107 mmol/L [facility] Blood specimen (specimen) 03/14/2019 3:28 AM EDT 03/14/2019 3:32 AM EDT Narrative Resulting Agency Comment Spec In Lab Wale Mckeon MD CHEMISTRY ORDERABLES Performing Organization Address [facility] Co de Phone Number [facility] [place] [address] * Troponin (03/14/2019 3:28 AM EDT) Troponin-T [...] ischemia ?? New or presumed new significant UY-wltixyt-F wave (ST-T) changes or new left bundle [...] additional sample may be indicated. Reference: Third Center Cross Definition of Myocardial Infarction. Journal of the [place] College of Cardiology 2012;60:1581-98 Blood specimen (specimen) 03/14/2019 3:28 AM EDT 03/14/2019 3:32 AM EDT Narrative Resulting Agency Comment Spec In Lab Wale Mckeon MD CHEMISTRY ORDERABLES Performing Organization Address [facility] Co de Phone Number [facility] [place] [address] * Sodium (03/14/2019 3:28 AM EDT) Sodium 140 135 - 145 mmol/L [facility] Blood specimen (specimen) 03/14/2019 3:28 AM EDT 03/14/2019 3:32 AM EDT Narrative Resulting Agency Comment Spec In Lab Wale Mckeon MD CHEMISTRY ORDERABLES Performing Organization Address [facility] Phone Number [facility] [place] [address] * Potassium (03/14/2019 3:28 AM EDT) Potassium [...] Mckeon MD CHEMISTRY ORDERABLES Performing Organization Address [facility] de Phone Number [facility] [place] [address] * Heparin (unfractionated) Level (03/14/2019 2:46 AM [...] MD HEMATOLOGY ORDERABLE S Performing Organization Address City/State/[facility] Co de Phone Number [facility] [place] [address] * (ABNORMAL) Differential, Automated (03/14/2019 1:50 AM EDT) Neutrophil % 38.9 % [facility] Neutrophil Absolute 3.10 1.70 - 6.10 x10(3)/mc L [facility] Lymph % 49.6 % [facility] Lymphocytes Abs 4.0(H) 0.9 - 3.2 x10(3)/mc L [facility] Monocyte % 6.3 % [facility] Monocyte Abs 0.5 0.3 - 0.9 x10(3)/mc L [facility] Eos % 4.1 % [facility] Eosinophils Abs 0.3 0.0 - 0.4 x10(3)/mc L [facility] Basophil % 0.8 % [facility] S [facility] [place] [address] * Hemogram (03/14/2019 1:50 AM EDT) White Blood Cell 8.0 4.0 - 9.5 x10(3)/[facility] LABORATORY Red Blood Cell 4.98 4.58 - 5.54 x10(6)/[facility] LABORATORY [...] CENTER LABORATORY Platelet 192 145 - 357 x10(3)/[facility] LABORATORY RDW Standard Deviation 39.9 36.0 - 45.0 [facility] LABORATORY RDW coefficient of variation 12.9 11.4 - 13.8 % [facility] Mean Platelet Volume 11.7 7.6 - 12.9 fL [facility] NRBC% auto 0.0 % [facility] NRBC Absolute 0.000 0.000 - 0.000 x10(3)/mcL [facility] Blood specimen (specimen) 03/14/2019 1:50 AM EDT 03/14/2019 2:04 AM EDT Narrative Resulting Agency Comment Spec In Lab Ed Simpson MD HEMATOLOGY ORDERABLE S Performing Organization Address [facility] Co de Phone Number [facility] [place] [address] * pro-Brain Natriuretic Peptide (03/14/2019 1:50 AM EDT) NT-proBNP 12 <=125 pg/mL [facility] Blood specimen (specimen) 03/14/2019 1:50 AM EDT 03/14/2019 2:04 AM EDT Narrative Resulting Agency Comment Spec In Lab Ed Simpson MD CHEMISTRY ORDERABLES Performing Organization Address [facility] Co de Phone Number [facility] [place] [address] * Magnesium (03/14/2019 1:50 AM EDT) Magnesium 0.81 0.69 - 1.07 mmol/L [facility] Blood specimen (specimen) 03/14/2019 1:50 AM EDT 03/14/2019 2:04 AM EDT Narrative Resulting Agency Comment Spec In Lab Ed Simpson MD CHEMISTRY ORDERABLES Performing Organization Address [facility] Co de Phone Number [facility] [place] [address] * (ABNORMAL) BMP w/fasting Glucose (03/14/2019 1:50 [...] [facility] Comment: Called by: [facility], Read back by: Keeley Arias, [...] of body mass or the acutely ill. http://Wiper/DHMCnkf eGFR 101 >=60 mL/min/1 .73 m?? [facility] Comment: The eGFR was calculated using the CKD-EPI equation. As with all creatinine based estimates of kidney function, eGFR values calculated with the CKD-EPI equation are not accurate in patients with acute kidney failure, extremes of body mass or the acutely ill. http://Wiper/DHMCnkf Blood specimen (specimen) 03/14/2019 1:50 AM EDT 03/14/2019 2:04 AM EDT Narrative Resulting Agency Comment Spec In Lab Ed Simpson MD CHEMISTRY ORDERABLES Performing Organization Address [facility] Co de Phone Number [facility] [place] [address] * EKG 12 Lead (03/14/2019 1:06 AM EDT) Ventricular rate 63 BPM MUSE SYSTEM Atrial Rate 63 BPM MUSE SYSTEM P-R Interval 146 ms MUSE SYSTEM QRS Duration 84 ms MUSE SYSTEM Q-T Interval 384 ms MUSE SYSTEM QTC Calculated (Bezet) 392 ms MUSE SYSTEM Calculated P Garwood 28 degrees MUSE SYSTEM Calculated R Garwood 21 degrees MUSE SYSTEM Calculated T Garwood 18 degrees MUSE SYSTEM INTERPRETATION Normal sinus rhythm Normal ECG When compared with ECG of 13-SEP-2017 07:49, No significant change was found Confirmed by MD NAZANIN, DEISY ([id number]) on 03/14/2019 9:49:11 AM MUSE SYSTEM 03/14/2019 1:06 AM EDT 03/14/2019 9:49 AM EDT Ed Simpson MD ECG ORDERABLES Performing Organization Address [facility] de Phone Number MUSE SYSTEM documented in [...] - Reason: Transfer to a Procedural area)1133 ([facility] Unhold - Provider: Admin Adt)2099 (Given - Provider: Keeley Arias RN) 0855 (Given - Provider: Jacqueline Montes De Oca, VERO)2030 (Given - Provider: Beverly Chan, VERO) 0849 (Given - Provider: Heather Jenkins RN) clopidogrel (PLAVIX) tablet 75 mg (CANCELED) 75 mg, Oral, DAILY, First dose on Thu03/14/19 at 0900, Until Discontinued, Routine 0853 (Given - Provider: Mariela Nichols RN)1003 ([facility] Hold - Provider: Admin Adt - Reason: Transfer to a Procedural area)1133 ([facility] Unhold - Provider: Admin Adt) cyclobenzaprine (FLEXERIL) tablet 10 mg 10 mg, Oral, NIGHTLY, First dose on Thu03/14/19 at 2100, Until Discontinued, Routine 1003 ([facility] Hold - Provider: Admin Adt [...] - Reason: Transfer to a Procedural area)1133 ([facility] Unhold - Provider: Admin Adt)2017 (Given - [...] of tube = 37.5 grams., Routine 1003 ([facility] Hold - Provider: Admin Adt - Reason: Transfer to a Procedural area)1133 ([facility] Unhold - Provider: Admin Adt) iohexol [...] for discomfort with PIV insertion, Routine 1003 ([facility] Hold - Provider: Admin Adt - Reason: Transfer to a Procedural area)1133 ([facility] Unhold - Provider: Admin Adt) [...] last 24 to 72 hours., Routine 1003 ([facility] Hold - Provider: Admin Adt - Reason: Transfer to a Procedural area)1133 ([facility] Unhold - Provider: Admin Adt) [...] 0255 (Given - Provider: Keeley Arias, VERO)1003 ([facility] Hold - Provider: Admin Adt - Reason: Transfer to a Procedural area)1133 ([facility] Unhold - Provider: Admin Adt)1952 (Given [...] provided on this medication record., Routine 1003 ([facility] Hold - Provider: Admin Adt - Reason: Transfer to a Procedural area)1133 ([facility] Unhold - Provider: Admin Adt) sodium chloride 0.9 % (flush) flush 5-20 mL 5-20 mL, Intravenous, EVERY 1 MIN PRN, Starting on Thu03/14/19 at 0219, Until Thu03/16/19 at 1756, flush, Flush pertains to all indwelling lines. Flush per protocol found in the job aid using the link provided on this medication record., Routine 1003 ([facility] Hold - Provider: Admin Adt - Reason: Transfer to a Procedural area)1133 ([facility] Unhold - Provider: Admin Adt) verapamil [...] Routine documented in this encounter Care Teams Sky Line Yarder Relationship Specialty Start Date End Date Coni Lim MD [address] [place] [address] PCP - General 07/16/10 documented as of this encounter
--- OUTSIDE RECORDS SUMMARY | 2024-05-17 16:07 | XMS_ITS | Encounter Summary ---
Author Organization [facility] Address [facility] [place] [address] Care Team Providers Care Inspector Technician Name Role Phone Coni Lim MD Primary Care Provider [phone] Reason for Visit * Reason Onset Date Comments Procedure 05/24/2020 Encounter Details Date Type Department Care Team (Latest Contact Info) Description 05/24/2020 11:15 AM EDT Procedure [place] [address] Keeley Paredes MD [facility] [place] [address] Conjunctival lesion Social History Tobacco Use Types [...] AM EDT 05/24/2020 11:19 AM EDT Narrative [facility] - 05/24/2020 11:19 AM EDT Specimen requisition ordered. ??Separate Pathology report to follow Keeley Paredes MD PATHOLOGY/CYTOLOGY O RDERABLES [facility] [place] [address] * Surgical Pathology Report (05/24/2020 11:09 AM EDT) Final Diagnosis [id number] ? Location: The signing pathologist has (i) examined the relevant preparation(s) for the specimen(s) and (ii) rendered or confirmed the diagnosis(es). . ?Surgical Pathology DIAGNOSIS A - Eye, right caruncle cystic lesion, biopsy: Dermoid cyst. Electronically signed by: ??Wendy Oneill MD Verified: ??05/30/2020 ?Pathologist Performed at: ??-[facility] Dept. of Pathology, [place], [place] DISCUSSION Multiple deeper levels were examined. SPECIMEN(S) SUBMITTED A - right caruncle cystic lesion, biopsy (1) CLINICAL INFORMATION Right caruncle cystic lesion x1 year, irritating SPECIMEN PROCESSING A - Labeled/Fixativ e: Right eye, formalin. Quantity/Size: Two, 0.2 and 0.4 cm. Tissue Description: Soft, rubbery, yellow-walters tissues. Sections/Proces sing: Submitted en toto ??in 1 cassette labeled A1. ??shb 05/30/2020 3:05 PM EDT [facility] BIOPSY SPECIMEN / Unknown 05/24/2020 11:09 AM EDT 05/24/2020 11:09 AM EDT Keeley Paredes MD PATHOLOGY/CYTOLOGY O RDERABLES [facility] [place] [place] [address] documented in this encounter Visit Diagnoses Diagnosis Conjunctival lesion Unspecified disorder of conjunctiva documented in this encounter Care Teams Inspector Technician Relationship Specialty Start Date End Date Coni Lim MD [address] [place] [address] PCP - General 07/16/10 documented as of this encounter
--- OUTSIDE RECORDS SUMMARY | 2024-05-17 16:07 | XMS_ITS | Encounter Summary ---
Author Organization [facility] Address [facility] [place] [address] Care Team Providers Care Medical Radiation Tech Name Role Phone Coni Lim MD Primary Care Provider [phone] Encounter Details Date Type Department Care Team (Late st Contact Info) Description 09/28/2019 [place]phone [place] [address] Keeley Paredes MD [facility] [place] [address] Social History Tobacco Use Types Packs/Day Years [...] on filedocumented in this encounter Care Teams Medical Radiation Tech Relationship Specialty Start Date End Date Coni Lim MD [address] [place] [address] PCP - General 07/16/10 documented as of this encounter
--- OUTSIDE RECORDS SUMMARY | 2024-05-17 16:07 | XMS_ITS | Encounter Summary ---
Author Organization [facility] Address [facility] [place] [address] Care Team Providers Care Associate Professor Of Media Arts Name Role Phone Coni Lim MD Primary Care Provider [phone] Reason for Visit * Auth/Cert Specialty Diagnoses / Procedures Referred By Ruby garvin Referred To Contact Diagnoses Unstable angina Chest pain Procedures EMERGENCY IPI Referral ID Status Reason Start Date Expiration Date Visits Re quested Visits Authorized [id number] 1 1 Encounter Details Date Type Department Care Team (Late st Contact Info) Description 2021 7:02 PM EDT - 06/10/2021 6:29 PM EDT Hospital Encounter Intermediate [place] [id number] Zuleyka Hodgson MD [facility] [place] [address] Supa Alegria MD [facility] [place] [address] Chest pain, unspecified type Discharge Disposition: Home [...] Romeo Coe Patient Age: 56 y.o. Language: Cymro Race: White Ethnicity: Not nor Admit date: 2021 Discharge date and time: 06/10/2021 5:40 PM Attending Physician: Supa Alegria MD Discharge Physician: Supa Alegria MD Follow-up Recommendations for Providers: Romeo Coe is a 56 year old male admitted for chest pain concerning for unstable angina. 1. ASCVD / Microvascular angina: [facility] 06/10/21 without obstructive CAD and with [...] Escobar APRN Sarah Hansen, PA-C Cardiovascular Medicine [phone] Discharge Diagnoses (Hospital Problems) and Secondary Diagnoses (Chronic Problems): Active Hospital Problems Diagnosis ??? Unstable angina ??? Chest pain ??? Smoker ??? CAD (coronary artery disease) ??? Dyslipidemia ??? HTN (hypertension) ??? DM (diabetes mellitus) Resolved Hospital Problems No resolved problems to display. Active Non-Hospital Problems Diagnosis ??? Hx-TIA (transient ischemic attack) ??? GERD (gastroesophageal reflux disease) ??? Conjunctival lesion Operations/Major Procedures: [facility] 06/10/21 Hemodynamics: Left Heart Pressures Resting: [...] 2011, LAD stent in 2012, RCA stent [id number]. His most recent coronary angiogram (2019) showed [...] since 2011 and last JACINDA to RCA [id number]. Last LHC 2019 with residual ~40% LAD [...] SOB prior to discharge. Follow up with bulker, Dr. Gutierrez, was arranged. ?? Right??groin cellulitis, abscess with spontaneous drainage Patient noted to have right groin erythema consistent with cellulitis. He remained afebrile and without leukocytosis. Blood cultures obtained at OSH were NGTD at 2 days (spoke with microbiology at [facility] on 06/10/21). These were [...] CTA chest was made. ?? Diabetes mellitus, rti-jpvkznl-ushxeazbk, uncontrolled A1c of 9.4%. Home metformin held for cath. Additional coverage with sliding scale and meal associated insulin. Hold metformin for 48 hours after contrast exposure. Diabetes management team consulted.Recommendations to continue metformin 1000mg BID and further management per PCP. Could consider SGLT2i. ?? HTN BP trend 12 hours prior to discharge were BP: (102-134)/(65-81) . He was continued on home olekqtqd35.5mg daily, metoprolol succinate 100mg daily and Imdur [...] Studies and Lab Data: Blood cultures at [facility] and [facility]. Discharge Conditions/Prognosis: Alert and oriented x 3, ambulatory-independent. Ambulated without chest pain or SOB prior to discharge. Discharge to: Home. Updated Allergies/ADRs: Allergies Allergen Reactions ??? Thallium-201 Severe cardiac event ??? Lisinopril Other (See Comments) cough ??? Paper Tape [Adhesive Tape] Rash Immunizations Given this Hospitalization: Immunization History Administered Date(s) Administered ??? Influenza PF, Split 07/30/2013 ??? Influenza Vaccine (Novel) [id number], Injectable 05/24/2009 ??? Influenza Vaccine w/Preservative, Split [...] of 8AM-5PM please call the Cardiology Clinic [phone] to speak with a nurse. All other hours please call the Hospital [facility]ant And Toddler Teacher [phone] and ask to speak to the chauffeur airport limousine on-call. Return to work: One week Driving: [...] Time PCP COLEEN Wen [address] [place] [address] [phone] Jun 20 10:00am Canvas Cutter Dr. Gutierrez [facility] Cardiology [phone] ThursdayJul 23 11:40am Discharge References/Attachments Angina (Cymro) Discussed with MD Coni Escobar PA-C Pager #[phone] 06/10/2021 documented in this encounter Discharge Instructions [...] of 8AM-5PM please call the Cardiology Clinic [phone] to speak with a nurse. All other hours please call the Hospital [facility] Toddler Teacher [phone] and ask to speak to the chauffeur airport limousine on-call. Return to work: One week Driving: [...] Time PCP COLEEN Wen [address] [place] [address] Jun 20 10:00am Canvas Cutter Dr. Gutierrez [facility] Cardiology [phone] ThursdayJul 23 11:40am * Patient Instructions* Coni Lew PA - 06/10/2021 3:07 PM EDT * Attachments The following attachments cannot be sent through Care Everywhere. * Angina (Cymro) documented in this encounter Medications at Time [...] Transport initiated/not confirmed: Spoke with NOELLE from [facility] who initiated a ride with their scheduling department/dispatch to pick patient up at discharge 06/10/21 from the MAIN entrance at ~18:00 en route to HOME UPDATE 16:06 Discharge Transportation confirmed: Spoke with ELMIRA from [facility] who confirmed a compactor driver provided by buyer brokerULISES will arrive to pick patient up at discharge 06/10/21 from the MAIN entrance at 18:00 en route to HOME. Bedside nurse notified via eDH chat. [facility] PHONE: [phone] * Supa Alegria MD - 06/10/2021 8:04 AM EDT Images from the original note were not included. Inpatient Cardiology Progress Note Patient Name: Romeo Coe Service: TECHNICAL SERVICES REP / PA Responsible Attending: Supa Alegria MD [...] nausea overnight,patient reports resolution. In agreement for [facility] today. Continues on IV antibiotics for [...] since 2011 and last JACINDA to RCA [id number]. Last LHC 2018 with residual ~40% LAD [...] chest at this time ?? Diabetes mellitus, rvs-ygiewvb-plyuqrryd, uncontrolled A1c of 9.4% Hold home metformin [...] Discussed with MD Coni Escobar PA-C Pager #[phone] 06/10/2021 Cardiology Attending Note I have seen and examined the patient. I agree with the findings above. Of note, he is feeling well today. His groin site shows no evidence of fluid collection. Blood cultures show no growth. We will proceed with coronary angiography and possible PCI Supa Alegria MD [facility] Total time spent on review of [...] Progress Note Patient Name: Romeo Coe Service: TECHNICAL SERVICES REP / PA Responsible Attending: Supa Alegria MD Reason for continued hospitalization: Evaluation and management of unstable angina- cath Right groin cellulitis-IV abx Medication adjustment Active Problems: Active Hospital Problems Diagnosis ??? Unstable angina ??? Chest pain ??? Smoker ??? CAD (coronary artery disease) -Coronary Angio 07/29/2013: 65% (FFR 0.74) mid LAD lesion s/p PCI with 3.5 X 18 mm JACINDA - [facility] 2009 post abnormal nuc stress +IW, [...] CTA at this time ?? Diabetes mellitus, ryq-bjnsbha-cdizmeaqa Poor control with A1c of 9.4 Carb [...] ?Routine Diet: Daily Healthy Menu Choices/Cardiac diet ([facility]-Diet) CHO counting level 2 DVT Prophylaxis: already [...] on antibiotics. Supa Alegria MD [facility] Total time spent on review of [...] PCP: Coni Lim MD PCP phone number: [phone] Date of Admission: 2021 ( Hospital Day 0 days ) Attending:Zuleyka Hodgson MD Patient Active Problem List Diagnosis ??? ','Unstable angina ??? Chest pain ??? Smoker ??? CAD (coronary artery disease) Overview Note: -Coronary Angio 07/29/2013: 65% (FFR 0.74) mid LAD lesion s/p PCI with 3.5 X 18 mm JACINDA - [facility] 2009 post abnormal nuc stress +IW, [...] Myocardial Infarction Father 46 PR, CABG ??? Heart Disease Father ??? Diabetes [...] Lives with and daughter at home in [place], [place]. He is disabled now. He used [...] in the last 7068 hours. Invalid input(s): [id number] No results for input(s): POCGLU in the last 168 hours. Heme No results for input(s): LDH, HAPTOGLOBIN, URICACID in the last 168 hours. ABG (Arterial Blood Gas) No results found for: PHART, PO2ART, BSP2HBO, OVS0JNX Microbiology: Microbiology Results (Last 30 days) No [...] (porcine) AND heparin (porcine) infusion Recent diagnostics: [facility] (2019): Left Main The left main [...] Obtain Echo - Serial cardiac enzymes - air sampling and monitoring - Cardiac cath in a.m. - Check [...] infection. No hypoxia or tachycardia #Diabetes mellitus, otz-claiqit-kjjltjsze, poor control with A1c of 9.4 -Diabetic [...] #Routine Diet: Daily Healthy Menu Choices/Cardiac diet ([facility]-Diet) 75/75/90 CHO counting level 3 DVT Prophylaxis: already on heparin drip Code Status: Attempt Cardiopulmonary Resuscitation - Inpatient Dispo: Pending clinical course Isaiah Hoyos MD Pager #[phone] 06/08/21 8:56 PM documented in this encounter [...] cath without complications. Coni Lew PA-C Pager #[phone] 06/10/2021 * Initial Assessments - Ruthie Macias RN - 06/10/2021 3:39 PM EDT Office of Care Management Initial Assessment Ruthie Macias RN reviewed record and discussed patient with Care Team. Source of Information: Team, bedside nurse, medical record, and Patient Introduced self/reviewed role; services accepted. Reason for Hospitalization: unstable angina Last COVID test: Lab Results Component Value Date [id number] Not Detected 06/09/2021 Past medical History: Past [...] dyer would be surrogate decision maker per [place] surrogatedecision making law. (Only good for 180 days) Any patient receiving care at [facility] must abide by [place] law. The hierarchy for surrogate decision making [...] cane - straight Home Address confirmed as: [address] [place] [address] Social & Family Supports: All names listed below confirmed with patient as current and correct Extended Emergency Contact Information Primary Emergency Contact: Dasia Coe Address: [address] [place] [address] Mobile Relation: Spouse Current Care Provided by: [...] MEDICAID [place] Prescription Coverage: Yes Preferred Pharmacy: [facility] [place], [place] - [address] [place] [address] [address] [facility] [address] [place] Status: Patient is a : No Primary Care Provider: Coni Lim MD [phone] Patient/Caregiver Goals of Treatment: dc to home [...] ambulation, driving. He drove his car to [facility] and then required a BLS to transport here to [facility]. He will require assistance in finding A ride to home when he is dced. Pt has supports in place to accessthe necessary care and or follow up after dishcharge and there are no RN CM or RESEARCH GREENHOUSE SUPERVISOR needs that are identified at this time Plan: dc to home A member of the Care Management team will continue to monitor progress, follow for continuity of care and assist with transition of care planning. Ruthie Macias RN CM [phone] Pager [phone] * Consult Note - Elena Zaragoza APRN [...] management and to provide a review of terminal superintendent diabetes care. Diabetes History: Romeo Coe has had diabetes for about 8 years. He was diagnosed during routine blood testing by his PCP. Denies having any symptoms at time of diagnosis. He takes metformin only, hasn't discussed additional medications with PCP previously as historically A1c has been 6-7. Lives in [facility] with Dasia. States the last few months [...] ??? [OCT Hold] Vancomycin Level - [facility] Order Reminder NOT APPLICABLE Once [...] Myocardial Infarction Father 46 PR, CABG ??? Heart Disease Father ??? Diabetes [...] 10 gm carb ratio for each meal) terminal superintendent diabetes care: Medications - Outpatient treatment regimen recommendations pending based on the hospital course. Monitoring - continue BG tid ac & hs Diet - low fat/low carb diet Exercise - weight-bearing exercise 30 min/day, as tolerated Thank you for allowing us to provide care for your patient Elena Zaragoza APRN Endocrinology Pager [phone] 70 minutes of this 80 minute visit was spent with the patient in counseling on diabetes and treatment plan, reviewing all glucose and insulin data as well as relevant laboratory results with the patient, and coordination of care on the inpatient unit * Brief Op Note - Jose Trimble MD - 06/10/2021 11:37 AM EDT Brief Operative Note Patient Name: Romeo Coe : [id number] MR#: [id number] Case Date: 06/10/2021 Canvas Cutter: * Jose Trimble MD - Primary * Syed Solorio MD - Fellow Preoperative diagnosis: nstemi Postoperative diagnosis:NSTEMI with stable coronary anatomy Preliminary Cardiac Catheterization Procedure Note: Procedure(s) performed: Coronary Angiography, Left Heart Cath Baseline Frailty Assessment: Definitions from [place] Study of Health and Aging Clinical Frailty [...] Full report to follow. JOSE TRIMBLE MD cnc machine setter Pager [phone] * Plan of Care - Fabienne Morelos RN - 06/09/2021 2:57 PM EDT OUTCOME EVALUATION NOTE: OUTCOME SUMMARY: A/O x4. VSS on RA. NSR on tele. Heparin gtt maintained per protocol.IV zosyn and vanc given per protocol. (see MAR). BG elevated, MD notified, insulin scale adjusted. PLAN MOVING FORWARD: BC results senior laboratory technician D/c planning INDIVIDUALIZED FALL PREVENTION INTERVENTIONS: [...] SOB reported, remains on room air overnight. Canjilon very nauseous after he went to the [...] further details. Isaiah Hoyos MD 2021 Pager [phone] documented in this encounter Plan of Treatment [...] * POCT Glucose (06/10/2021 4:20 PM EDT) [facility] Glucose, POC 177 65 - 199 mg/dL [facility] Comment: Supplemental ranges: <140 mg/dL before meals <180 mg/dL all other times of the day Blood 06/10/2021 4:20 PM EDT 06/10/2021 4:20 PM EDT Supa Alegria MD POINT OF CARE TEST O RDERABLES [facility] [place] [address] * Troponin (06/10/2021 1:07 PM EDT) [facility] Troponin-T <0.01 0.00 - 0.00 ng/mL [facility] [...] ischemia ?? New or presumed new significant CQ-cyqrsxh-M wave (ST-T) changes or new left bundle [...] additional sample may be indicated. Reference: [place] Definition of Myocardial Infarction. Journal of the [place] College of Cardiology 2012;60:1581-98 Blood 06/10/2021 1:07 PM EDT 06/10/2021 1:18 PM EDT Narrative Resulting Agency Comment Spec In Lab Isaiah Hoyos MD CHEMISTRY ORDERABLE S Performing Organization Address City/[facility]/ZIP Co de Phone Number [facility] [place] [address] * POCT Glucose (06/10/2021 11:58 AM EDT) Pathologist [facility] Glucose, POC 175 65 - 199 mg/dL [facility] Comment: Supplemental ranges: <140 mg/dL before meals <180 mg/dL all other times of the day Blood 06/10/2021 11:5 8 AM EDT 06/10/2021 11:58 AM EDT Supa Alegria MD POINT OF CARE TEST O RDERABLES [facility] [place] [address] * CARDIAC CATHETERIZATION (06/10/2021 11:45 AM EDT) Anatomical Region Laterality Modality Other Narrative 06/10/2021 12:54 PM EDT ?[facility] ? Cardiac Catheterization/Intervention Report ? Patient Name: Coe, Romeo A. ? Procedure Date: 06/10/2021 ? A #: [id number] ? Primary Physician: Trimble, Jose V ? Case #: [id number] ? File Name: [id number] ? Catheterization Order Number: [id number] ? [facility] ? Final Report [place], [place] ? Patient Name: ? Romeo Coe ? ID#: ?[id number] ? : ?1965 ? Procedure Date: ? [...] was ?designated as ASA Class II. The [facility] clinical frailty scale is 2: Well. ? [...] procedure was Urgent. The indication for ?the fish hatchery laborer visit is worsening angina. Chest pain symptom [...] Procedure Note Jose Trimble MD - 06/10/2021 [facility] Cardiac Catheterization/Intervention Report Patient Name: Coe Romeo PopNatalie Procedure Date: 06/10/2021 A #: [id number] Primary Physician: Jose Trimble V Case #: [id number] File Name: [id number] Catheterization Order Number: [id number] [facility] FinalReport [place], [place] Patient Name: Romeo Leyva Laquita ID#:[id number] :1965 Procedure Date: June 10, 2021 Case [...] was designated as ASA Class II. The [facility] clinical frailty scale is 2:Well. Diagnostic Tests: [...] diagnostic procedure was Urgent. The indicationfor the fish hatchery laborer visit is worsening angina. Chest pain symptomassessment [...] units of heparin were administered. A total [id number] of Omnipaque were opened, 38cc of Omnipaque were administered [id number] of Omnipaque were wasted. Radiation: Fluoro time [...] RDERABLES [facility] [place] [address] * (ABNORMAL) BMP w/fasting Glucose (06/10/2021 3:44 [...] of Diabetes Mellitus, Position Statement from the [place] Diabetes Association. ??Diabetes Care, Volume 33, Supplement [...] S [facility] [place] [address] * Troponin (06/10/2021 3:44 AM EDT) Troponin-T [...] ischemia ?? New or presumed new significant GC-xfprldt-B wave (ST-T) changes or new left bundle [...] additional sample may be indicated. Reference: [place] Definition of Myocardial Infarction. Journal of the [place] College of Cardiology 2012;60:1581-98 Blood Venous Draw / Unknown 06/10/2021 3:44 AM EDT 06/10/2021 4:06 AM EDT Narrative Resulting Agency Comment Spec In Lab Isaiah Hoyos MD CHEMISTRY ORDERABLE S Performing Organization Address [facility] Co de Phone Number [facility] [place] [address] * Green Tube HOLD (06/10/2021 3:44 AM EDT) Green Hold Sample in lab. [facility] Blood Venous Draw / Unknown 06/10/2021 3:44 AM EDT 06/10/2021 4:03 AM EDT Isaiah Hoyos MD CHEMISTRY ORDERABLE S Performing Organization Address [facility] Co de Phone Number [facility] [place] [address] * POCT Glucose (06/10/2021 3:44 AM EDT) Glucose, POC 191 65 - 199 mg/dL [facility] Comment: Supplemental ranges: <140 mg/dL before meals <180 mg/dL all other times of the day Blood 06/10/2021 3:44 AM EDT 06/10/2021 3:44 AM EDT Supa Alegria MD POINT OF CARE TEST O RDERABLES Performing Organization Address [facility] Co de Phone Number [facility] [place] [address] * Heparin (unfractionated) Level (06/10/2021 3:44 AM EDT) [facility] UF Heparin 0.38 IU/mL [facility] Comment: Guidelines for therapeutic unfractionated [...] MD HEMATOLOGY ORDERABL ES Performing Organization Address [facility]/ZIP Co de Phone Number [facility] [place] [address] * (ABNORMAL) Differential, Automated (06/10/2021 3:44 AM EDT) [facility] Neutrophil % 55.0 % [facility] Neutrophil Absolute 4.98 1.70 - 6.10 x10(3)/mc L [facility] Lymph % 29.1 % [facility] Lymphocytes Abs 2.6 0.9 - 3.2 x10(3)/[facility] Monocyte % 7.5 % [facility] Monocyte Abs 0.7 0.3 - 0.9 x10(3)/[facility] Eos % 5.9 % [facility] Eosinophils Abs 0.5(H) 0.0 - 0.4 x10(3)/[facility] Basophil % 1.1 % [facility] Baso Absolute 0.1 0.0 - 0.1 x10(3)/[facility] Immature Gran % 1.40 % [facility] Comment: Immature granulocytes(IG's)percentage and absolute count will include metamyelocytes, myelocytes, and promyelocytes. Blood smears from CBCs yielding IG's will be scanned manually for concordance. If this scan disagrees with the automated IG or if promyelocytes are noted, a manual differential will be performed. Immature Gran Absolute 0.13(H) 0.00 - 0.04 x10(3)/[facility] Blood 06/10/2021 3:44 AM EDT 06/10/2021 4:03 AM EDT Narrative Resulting Agency Comment Spec In Lab Isaiah Hoyos MD HEMATOLOGY ORDERABL ES [facility] [place] [address] * Hemogram (06/10/2021 3:44 AM EDT) White Blood Cell 9.0 4.0 - 9.5 x10(3)/[facility] Red Blood Cell 4.97 4.58 - 5.54 x10(6)/[facility] Hemoglobin 14.2 13.7 - 16.5 g/dL [facility] Hematocrit 42.8 40.5 - 48.5 % [facility] Mean Cell Volume 86.1 82.9 - 93.1 fL [facility] Mean Cell Hemoglobin 28.6 27.5 - 32.1 pg [facility] Mean Cell Hemoglobin Concentration 33.2 32.0 - 35.7 g/dL [facility] Platelet 251 145 - 357 x10(3)/[facility] RDW Standard Deviation 40.5 36.0 - [address].0 [facility] RDW coefficient of variation 13.0 11.4 - 13.8 % [facility] Mean Platelet Volume 10.5 7.6 - 12.9 [facility] NRBC% auto 0.0 % [facility] NRBC Absolute 0.000 0.000 - 0.000 x10(3)/[facility] Blood 06/10/2021 3:44 AM EDT 06/10/2021 4:03 AM EDT Narrative Resulting Agency Comment Spec In Lab Isaiah Hoyos MD HEMATOLOGY ORDERABL ES Performing Organization Address City/[facility]/ZIP Co de Phone Number [facility] [place] [address] * POCT Glucose (06/09/2021 11:57 PM EDT) Glucose, POC 147 65 - 199 mg/dL [facility] Comment: Supplemental ranges: <140 mg/dL before meals <180 mg/dL all other times of the day Blood 06/09/2021 11:5 7 PM EDT 06/09/2021 11:57 PM EDT Supa Alegria MD POINT OF CARE TEST O RDERABLES Performing Organization Address City/[facility]/ZIP Co de Phone Number [facility] [place] [address] * POCT Glucose (06/09/2021 8:06 PM EDT) Glucose, POC 193 65 - 199 mg/dL [facility] Comment: Supplemental ranges: <140 mg/dL before meals <180 mg/dL all other times of the day Blood 06/09/2021 8:06 PM EDT 06/09/2021 8:06 PM EDT Supa Alegria MD POINT OF CARE TEST O RDERABLES Performing Organization Address City/[facility]/ZIP Co de Phone Number [facility] [place] [address] * Troponin (06/09/2021 5:47 PM EDT) Troponin-T [...] ischemia ?? New or presumed new significant QN-bmszkoe-K wave (ST-T) changes or new left bundle [...] additional sample may be indicated. Reference: [place] Definition of Myocardial Infarction. Journal of the [place] College [employer]iology 2012;60:1581-98 Blood 06/09/2021 5:47 PM EDT 06/09/2021 6:02 PM EDT Narrative Resulting Agency Comment Spec In Lab Isaiah Hoyos MD CHEMISTRY ORDERABLE S Performing Organization Address [facility]/ZIP Co de Phone Number [facility] [place] [address] * (ABNORMAL) POCT Glucose (06/09/2021 4:40 PM EDT) Glucose, POC 200(H) 65 - 199 mg/dL [facility] Comment: Supplemental ranges: <140 mg/dL before meals <180 mg/dL all other times of the day Blood 06/09/2021 4:40 PM EDT 06/09/2021 4:40 PM EDT Supa Alegria MD POINT OF CARE TEST O RDERAAIRAM Performing Organization Address [facility] Co de Phone Number [facility] [place] [address] * (ABNORMAL) POCT Glucose (06/09/2021 3:02 PM EDT) Glucose, POC 209(H) 65 - 199 mg/dL [facility] Comment: Supplemental ranges: <140 mg/dL before meals <180 mg/dL all other times of the day Blood 06/09/2021 3:02 PM EDT 06/09/2021 3:02 PM EDT Supa Alegria MD POINT OF CARE TEST O BOBERAAIRAM Performing Organization Address [facility] Co de Phone Number [facility] [place] [address] * ECHO COMPLETE W CONTRAST (06/09/2021 1:52 PM EDT) Anatomical Region Laterality Modality Other 06/09/2021 Narrative 06/09/2021 2:16 PM EDT Procedure: ?Transthoracic Echocardiogram Patient: ?LAQUITA DOHERTY A ? (Age): 1965(56y) Med Rec#: ? [id number] ?Sex: ?M ? Site Loc: ? [facility] ?Ht / Wt: ??177(cm)/114(kg) Pt. Loc: ?[facility] ? BSA: ?2.29 Study Date: ?? 06/09/2021 ?Pt. Type: Inpatient Tape: ? Referring: ALTUJJARMOHAMMAD Reading: Zuleyka Hodgson ([id number]) Press Puller: Ortiz Sandoval Diagnosis: *Chest pain, unspecified (R07.9) [...] Vmax ?0.67 ? m/sec ? MV deceleration jaah193.55 ? msec ? MV A-wave Vmax ?0.48 [...] 06/09/2021 14:15:33 Images reviewed and interpretation verified [facility] Cardiac Ultrasound Laboratory Procedure Note Zuleyka Hodgson MD - 06/09/2021 Procedure: Transthoracic Echocardiogram Patient: LAQUITA Pop (Age): 1965(56y) Med Rec#: [id number] Sex: M Site Loc: [facility] Ht / Wt: 177(cm)/114(kg) Pt. Loc: [facility] BSA: 2.29 Study Date: 06/09/2021 Pt. Type: Inpatient Tape: Referring: ALTUJJARMOHAMMAD Reading: Zuleyka Hodgson ([id number]) Press Puller: Ortiz Sandoval Diagnosis: *Chest pain, unspecified (R07.9) [...] MV E-wave Vmax 0.67 m/sec MV deceleration mhcz515.55 msec MV A-wave Vmax 0.48 m/sec MV [...] 06/09/2021 14:15:33 Images reviewed and interpretation verified [facility] Cardiac Ultrasound Laboratory Isaiah Hoyos MD [...] RDERABLES [facility] [place] [id number] * Troponin (06/09/2021 11:30 AM EDT) [facility] Troponin-T <0.01 0.00 - 0.00 ng/mL [facility] [...] ischemia ?? New or presumed new significant NX-indhpkq-L wave (ST-T) changes or new left bundle [...] additional sample may be indicated. Reference: [place] Definition of Myocardial Infarction. Journal of the [place] [employer] 2012;60:1581-98 Blood 06/09/2021 11:3 0 AM EDT 06/09/2021 11:44 AM EDT Narrative Resulting Agency Comment Spec In Lab Isaiah Hoyos MD CHEMISTRY ORDERABLE S Performing Organization Address [facility]/[place] de Phone Number [facility] [place] [address] * Heparin (unfractionated) Level (06/09/2021 11:30 AM EDT) UF Heparin 0.32 IU/mL [facility] Comment: Guidelines for therapeutic unfractionated [...] MD HEMATOLOGY ORDERABLE S Performing Organization Address [facility] Co de Phone Number [facility] [place] [address] * (ABNORMAL) POCT Glucose (06/09/2021 8:03 AM EDT) Glucose, POC 233(H) 65 - 199 mg/dL [facility] Comment: Supplemental ranges: <140 mg/dL before meals <180 mg/dL all other times of the day Blood 06/09/2021 8:03 AM EDT 06/09/2021 8:03 AM EDT Supa Alegria MD POINT OF CARE TEST O RDERABLES [facility] [place] [address] * (ABNORMAL) Differential, Automated (06/09/2021 5:50 AM EDT) Neutrophil % 56.8 % [facility] Neutrophil Absolute 4.64 1.70 - 6.10 x10(3)/ L [facility] Lymph % 27.0 % [facility] Lymphocytes Abs 2.2 0.9 - 3.2 x10(3)/ L [facility] Monocyte % 8.6 % [facility] Monocyte Abs 0.7 0.3 - 0.9 x10(3)/ L [facility] Eos % 5.6 % [facility] Eosinophils Abs 0.5(H) 0.0 - 0.4 x10(3)/ L [facility] Basophil % 0.9 % [facility] Baso Absolute 0.1 0.0 - [...] Absolute 0.09(H) 0.00 - 0.04 x10(3)/mc L [facility] Blood 06/09/2021 5:50 AM EDT 06/09/2021 6:06 AM EDT Narrative Resulting Agency Comment Spec In Lab Isaiah Hoyos MD HEMATOLOGY ORDERABL ES Performing Organization Address City/[facility]/ZIP Co de Phone Number [facility] [place] [address] * Hemogram (06/09/2021 5:50 AM EDT) White Blood Cell 8.2 4.0 - 9.5 x10(3)/[facility] Red Blood Cell 4.87 4.58 - 5.54 x10(6)/[facility] Hemoglobin 14.1 13.7 - 16.5 g/dL [facility] Hematocrit 42.0 40.5 - 48.5 % [facility] Mean Cell Volume 86.2 82.9 - [address].1 [facility] LABORAT[facility] Mean Cell Hemoglobin 29.0 27.5 - 32.1 [facility] Mean Cell Hemoglobin Concentration 33.6 32.0 - 35.7 g/dL [facility] Platelet 240 145 - 357 x10(3)/[facility] RDW Standard Deviation 40.7 36.0 - [address].0 [facility] RDW coefficient of variation 12.9 11.4 - 13.8 % [facility] Mean Platelet Volume 10.9 7.6 - 12.9 [facility] LAB[facility] NRBC% auto 0.0 % [facility] NRBC Absolute 0.000 0.000 - 0.000 x10(3)/[facility] Blood 06/09/2021 5:50 AM EDT 06/09/2021 6:06 AM EDT Narrative Resulting Agency Comment Spec In Lab Isaiah Hoyos MD HEMATOLOGY ORDERABL ES Performing Organization Address City/[facility]/ZIP Co de Phone Number [facility] [place] [address] * Troponin (06/09/2021 5:50 AM EDT) Pathologist [facility] Troponin-T <0.01 0.00 - 0.00 ng/mL [facility] [...] ischemia ?? New or presumed new significant IY-rueiqvs-S wave (ST-T) changes or new left bundle [...] additional sample may be indicated. Reference: [place] Definition of Myocardial Infarction. Journal of the [place] College [employer]iology 2012;60:1581-98 Blood 06/09/2021 5:50 AM EDT 06/09/2021 6:05 AM EDT Narrative Resulting Agency Comment Spec In Lab Isaiah Hoyos MD CHEMISTRY ORDERABLE S [facility] [place] [address] * Heparin (unfractionated) Level (06/09/2021 5:50 AM EDT) Pathologist [facility] UF Heparin 0.31 IU/mL [facility] Comment: Guidelines for therapeutic unfractionated [...] MD HEMATOLOGY ORDERABL ES Performing Organization Address [facility]/[place] de Phone Number [facility] [place] [address] * Blood culture (06/09/2021 5:50 AM EDT) Blood Culture No growth at 5 days. [facility] Blood ANTECUBITAL REGION STRUCTURE / Unknown 06/09/2021 5:50 AM EDT 06/09/2021 10:08 AM EDT Comment:#1 Narrative Resulting Agency Comment Spec In Lab Isaiah Hoyos MD MICROBIOLOGY - BLOO D ORDERABLES Performing Organization Address [facility]/[place] de Phone Number [facility] [place] [address] * Lipid Panel (Reflex Direct LDL) (06/09/2021 5:50 AM EDT) Cholesterol, Total 207 mg/dL [facility] Comment: Lower Risk: <200 mg/dL Average Risk: 200-239 mg/dL Higher Risk: >wq=222 mg/dL Triglyceride 235 mg/dL [facility] Comment: Average Risk/Lower Risk: <150 mg/dL Borderline High Risk: 150-199 mg/dL High Risk: 200-499 mg/dL Very High Risk: >yr=560 mg/dL HDL Cholesterol 29 mg/dL [facility] Comment: Males: ?? Higher Risk: <40 mg/dL Females: ?? Higher Risk: <50 mg/dL LDL Cholesterol 131 mg/dL [facility] Comment: Lowest Risk: <100 mg/dL Lower Risk: 100-129 mg/dL Borderline High Risk: 130-159 mg/dL High Risk: 160-189 mg/dL Very High Risk: >bo=649 mg/dL Cholesterol/HDL Ratio 7.1 ratio [facility] Lipid Interpretation See Note [facility] Comment: Lipid management should be guided by a patient? s ASCVD risk, goals and preferences. ACC/AHA Guidelines recommend high intensity statin if clinical ASCVD or LDL greater than or equal to 190 mg/dL. http://[employer]oc[employer]/PAI-GIB-Rcvpxlxcx Adults aged 40-75 with LDL 70-189 mg/dL should have their 10 year ASCVD risk estimated with the ACC/AHA ASCVD risk estimator and drafter http://tools.acc.org/CUZUQ-Mfmi-Cxesngvuw/ Statin should be discussed if risk greater [...] S [facility] [place] [address] * COVID-19 PCR (06/09/2021 5:45 AM EDT) [...] using the Simplexa COVID-19 Direct Assay by [employer] as authorized by the FDA issued Emergency [...] Department of Pathology and Laboratory Medicine at [facility], certified under the Clinical Laboratory Improvement [...] fact sheets at the following FDA website: https://www.fda.gov/medical-devices/qabzwidwhth-wrrufqc-2589-dgkps-51-sdadcldmg- use-a ydgwojageqrxh-sistdvq-zdrvaut/pjvtg-azkcoagosli-vxsq SARS-CoV-2 Source [employer] REP Swab MA [facility] Nasopharyngeal Swab 06/09/20 5:45 AM EDT 06/10/2021 6:15 AM EDT Comment:Symptoms->Surveillan ce Narrative Resulting Agency Comment Spec In Lab Isaiah Hoyos MD MICROBIOLOGY - GENE RAL ORDERABLES Performing Organization Address [facility] Co de Phone Number [facility] [place] [address] * (ABNORMAL) POCT Glucose (06/09/2021 4:20 AM EDT) Glucose, POC 224(H) 65 - 199 mg/dL [facility] Comment: Supplemental ranges: <140 mg/dL before meals <180 mg/dL all other times of the day Blood 06/09/2021 4:20 AM EDT 06/09/2021 4:20 AM EDT Supa Alegria MD POINT OF CARE TEST O RDERABLES Performing Organization Address [facility] Co de Phone Number [facility] [place] [address] * (ABNORMAL) POCT Glucose (06/09/2021 12:35 AM EDT) Glucose, POC 346(H) 65 - 199 mg/dL [facility] Comment: Supplemental ranges: <140 mg/dL before meals <180 mg/dL all other times of the day Blood 06/09/2021 12:3 5 AM EDT 06/09/2021 12:35 AM EDT Zuleyka Hodgson MD POINT OF CARE T EST ORDERABLES Performing Organization Address [facility] Co de Phone Number [facility] [place] [address] * Heparin (unfractionated) Level (2021 10:41 PM EDT) Pathologist [facility] UF Heparin 0.26 IU/mL [facility] Comment: Guidelines for therapeutic unfractionated [...] ES [facility] [place] [address] * EKG 12 Lead (2021 8:46 PM EDT) Pathologist [facility] Ventricular rate 69 BPM MUSE SYSTEM Atrial Rate 69 BPM MUSE SYSTEM P-R Interval 148 ms MUSE SYSTEM QRS Duration 84 ms MUSE SYSTEM Q-T Interval 384 ms MUSE SYSTEM QTC Calculated (Bezet) 411 ms MUSE SYSTEM Calculated P [place] 39 degrees MUSE SYSTEM Calculated R [place] 14 degrees MUSE SYSTEM Calculated T [place] 21 degrees MUSE SYSTEM INTERPRETATION Normal sinus [...] - BLOO D ORDERABLES Performing Organization Address City/[facility] Co de Phone Number [facility] [place] [address] * Troponin (2021 7:31 PM EDT) Troponin-T [...] ischemia ?? New or presumed new significant BF-ltvweoj-F wave (ST-T) changes or new left bundle [...] additional sample may be indicated. Reference: [place] Definition of Myocardial Infarction. Journal of the [place] College [employer]iology 2012;60:1581-98 Blood 2021 7:31 PM EDT 2021 7:37 PM EDT Narrative Resulting Agency Comment Spec In Lab Isaiah Hoyos MD CHEMISTRY ORDERABLE S [facility] [place] [address] * (ABNORMAL) Differential, Automated (2021 7:31 PM EDT) Neutrophil % 53.6 % [facility] Neutrophil Absolute 4.36 1.70 - 6.10 x10(3)/mc L [facility] Lymph % 28.5 % [facility] Lymphocytes Abs 2.3 0.9 - 3.2 x10(3)/mc L [facility] Monocyte % 10.8 % [facility] Monocyte Abs 0.9 0.3 - 0.9 x10(3)/mc L [facility] Eos % 5.4 % [facility] Eosinophils Abs 0.4 0.0 - 0.4 x10(3)/mc L [facility] Basophil % 1.0 % [facility] Baso Absolute 0.1 0.0 - [...] Absolute 0.06(H) 0.00 - 0.04 x10(3)/mc L [facility] Blood 2021 7:31 PM EDT 2021 7:37 PM EDT Narrative Resulting Agency Comment Spec In Lab Isaiah Hoyos MD HEMATOLOGY ORDERABL ES Performing Organization Address City/[facility]/ZIP Co de Phone Number [facility] [place] [address] * (ABNORMAL) Hemogram (2021 7:31 PM EDT) White Blood Cell 8.1 4.0 - 9.5 x10(3)/mc L [facility] Red Blood Cell 4.65 4.58 - 5.54 x10(6)/mc L [facility] Hemoglobin 13.5(L) 13.7 [...] [facility] NRBC% auto 0.0 % [facility] NRBC Absolute 0.000 0.000 - 0.000 x10(3)/ L [facility] Blood 2021 7:31 PM EDT 2021 7:37 PM EDT Narrative Resulting Agency Comment Spec In Lab Isaiah Hoyos MD HEMATOLOGY ORDERABL ES [facility] [place] [address] * (ABNORMAL) Basic Metabolic Panel (non-fasting) (2021 7:31 PM EDT) Glucose 244(H) 65 - 199 mg/dL [facility]IVERSITY [...] S [facility] [place] [address] documented in this encounter Visit Diagnoses Diagnosis Unstable angina- Primary Intermediate coronary syndrome Chest pain, unspecified type Smoker Tobacco use disorder CAD (coronary artery disease) Coronary atherosclerosis of unspecified type of vessel, chilkoot or graft Chest pain Chest pain, unspecified [...] Indication for (Active or Suspected): Skin/Skin Structure Given 06/09/2021 8:46 AM EDT 1,750 mg [...] Indication for (Active or Suspected): Skin/Skin Structure Given 06/10/2021 9:37 AM EDT 1,750 mg [...] Reason: Transfer to a Procedural area)1224 ([facility] Unhold - Provider: Admin Adt) [...] area)1224 ([facility] Unhold - Provider: Admin Adt) DULoxetine DR [...] a Procedural area)1224 ([facility] Unhold - Provider: Augustine Adt)1350 (Given - Provider: Fabienne Morelos RN)1727 [...] (Given - Provider: Emily Olmedo RN)1041 ([facility] Hold - Provider: Admin Adt - Reason: Transfer to a Procedural area)1224 ([facility] Unhold - Provider: Admin Adt) losartan (Cozaar) tablet 12.5 mg 12.5 mg, Oral, DAILY, First dose on 06/09/21 at 0900, Until Discontinued, Routine 0837 (Given - Provider: Fabienne Morelos RN) 0932 (Given - Provider: Fabienne Morelos RN)1041 ([facility] Hold - Provider: Admin Adt - Reason: Transfer to a Procedural area)1224 ([facility] Unhold - Provider: Admin Adt) metoprolol succinate XL (Toprol-XL) tablet 100 mg 100 mg, Oral, DAILY, First dose on 06/09/21 at 0900, Until Discontinued, DO NOT CRUSH OR OPEN, Routine 0837 (Given - Provider: Fabienne Morelos RN) 0932 (Given - Provider: Fabienne Morelos RN)1041 ([facility] Hold - Provider: Admin Adt - Reason: Transfer to a Procedural area)1224 ([facility] Unhold - Provider: Admin Adt) [...] (Stopped - Provider: Fabienne Morelos RN)1041 ([facility] Hold - Provider: Admin Adt - Reason: Transfer to a Procedural area)1224 ([facility] Unhold - Provider: Admin Adt)1238 (New Bag - Provider: Fabienne Morelos RN)1638 (Stopped - Provider: Fabienne Morelos RN) pramipexole (Mirapex) tablet 0.5 mg 0.5 mg, Oral, NIGHTLY, First dose on 06/08/21 at 2115, Until Discontinued, Routine 214 (Given - Provider: Arturo Morris RN) 2023 (Given - Provider: Emily Olmedo RN) 1041 ([facility] Hold - Provider: Admin Adt - Reason: Transfer to a Procedural area)1224 ([facility] Unhold - Provider: Admin Adt) ranolazine ER (Ranexa) tablet 500 mg 500 mg, Oral, 2 TIMES DAILY, First dose on 06/10/21 at 1100, Until Discontinued, DO NOT CRUSH OR OPEN. Baseline EKG required before administration., Routine, Has baseline EKG been obtained? Yes 1041 ([facility] Hold - Provider: Admin Adt - Reason: Transfer to a Procedural area)1100 (Canceled Entry - Provider: Fabienne Morelos RN - Reason: Transfer to a Procedural area)1224 ([facility] Unhold - Provider: Admin Adt)1238 (Given - Provider: Fabienne Morelos RN) rosuvastatin (Crestor) tablet 40 mg 40 mg, Oral, EVERY EVENING, First dose on Thu06/10/21 at 1700, Until Discontinued, Routine 1041 ([facility] Hold - Provider: Admin Adt - Reason: Transfer to a Procedural area)1224 ([facility] Unhold - Provider: Admin Adt)1633 (Given - Provider: Fabienne Morelos RN) sodium chloride 0.9 % (flush) (BD PosiFlush Normal Saline 0.9) flush 5 mL 5 mL, Intravenous, 2 TIMES DAILY, First dose on 06/08/21 at 2100, Until Discontinued, Routine 214 (Given - Provider: Arturo Morris RN) 0843 (Given - Provider: Fabienne Morelos RN)2100 (Not Given - Provider: Emily Olmedo RN - Reason: Order parameters not met) 0946 (Given - Provider: Fabienne Morelos RN)1041 ([facility] Hold - Provider: Admin Adt - Reason: Transfer to a Procedural area)1224 ([facility] Unhold - Provider: Admin Adt) topiramate (Topamax) tablet 50 mg 50 mg, Oral, NIGHTLY, First dose on 06/08/21 at 2115, Until Discontinued, Routine 214 (Given - Provider: Arturo Morris RN) 202 (Given - Provider: Emily Olmedo RN) 1041 ([facility] Hold - Provider: Admin Adt - Reason: Transfer to a Procedural area)1224 ([facility] Unhold - Provider: Admin Adt) [...] Indication for (Active or Suspected): Skin/Skin Structure 2 (Given - Provider: Arturo Morris RN) 0846 (Given - Provider: Fabienne Morelos, VERO)1134 (IV Stop - Provider: Leonora Salas RN) [...] Reason: Transfer to a Procedural area)1224 ([facility] Unhold - Provider: Admin Adt) Continuous Medication [...] of tube = 37.5 grams., Routine 1041 ([facility] Hold - Pro vider: Admin Adt - Reason: Transfer to a Procedural area)1224 ([facility] Unhold - Provider: Admin Adt) heparin [...] Jose Damon MD - Comment: Contrast in Battery Charger Tester) lidocaine (Xylocaine) 1% (10 mg/mL) injection 3 mg 3 mg (0.3 mL), Subcutaneous, ONCE PRN, 1 dose, Starting on 06/08/21 at 1909, Until Thu06/10/21 at 2028, for discomfort with PIV insertion, Routine 1041 ([facility] Hold - Pro vider: Admin Adt - Reason: Transfer to a Procedural area)1224 ([facility] Unhold - Provider: Admin Adt) [...] last 24 to 72 hours., Routine 1041 ([facility] Hold - Pro vider: Admin Adt - Reason: Transfer to a Procedural area)1224 ([facility] Unhold - Provider: Admin Adt) [...] on 06/08/21 at 1909, Until 06/10/21 at 2029, flush, Flush pertains to all indwelling lines. [...] PRN, Starting on 06/10/21 at 1119, Until Thu06/10/21 at 1147, Cath (Intra-Procedure), Routine 1119 (Given - Provid er: Naye Song RN - Comment: for mean AO of 76) sodium chloride 0.9% infusion (CANCELED) CONTINUOUS PRN, Starting on 06/10/21 at 1053, Until Thu06/10/21 at 1147, Cath (Intra-Procedure) 1053 (New Bag - Prov ider: Naye Song RN - Comment: Battery Charger Tester Flush Line) verapamiL (Isoptin) (2.5 mg/mL) injection (CANCELED) ONCE PRN, Starting on 06/10/21 at 1116, Until 06/10/21 at 1147, Administer over 2 Minutes, Cath (Intra-Procedure) 1116 (Given - Provid er: ySed Solorio MD - Comment: per Radial Protocol) [...] Routine documented in this encounter Care Teams Associate Professor Of Media Arts Relationship Specialty Start Date End Date Coni Lim MD [address] [place] [address] PCP - General 07/16/10 documented as of this encounter
--- OUTSIDE RECORDS SUMMARY | 2024-05-17 16:07 | XMS_ITS | Encounter Summary ---
Author Organization [facility] Address [facility] [place] [address] Care Team Providers Care Hand Decorator Name Role Phone Coni Lim MD Primary Care Provider [phone] Encounter Details Date Type Department Care Team (Late st Contact Info) Description 06/07/2021 Telephone Cardiology at [address] [phone] oCni Wilson PA [facility] [place] [address] Social History Tobacco Use Types Packs/Day Years [...] time: 2:26 PM Referring Provider: Maria Luisa GROEVR Patient Location: [facility] Past Medical History: 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 ER provider spoke with local printed products assembler (Dr. Gutierrez) who recommended speaking with for transfer for [facility]. Vital Signs: HR 80s, SBP 110s [...] angina. Troponin negative x1. EKG nonischemic. OSH printed products assembler recommended transfer for C. Loaded with ASA [...] management. Coni Lew PA-C Cardiovascular Medicine Pager [phone] 06/07/2021 documented in this encounter Plan of Treatment Not on file documented as of this encounter Visit Diagnoses Not on filedocumented in this encounter Care Teams Hand Decorator Relationship Specialty Start Date End Date Coni Lim MD [address] [place] [address] PCP - General 07/16/10 documented as of this encounter
--- OUTSIDE RECORDS SUMMARY | 2024-05-17 16:07 | XMS_ITS | Encounter Summary ---
Author Organization [facility] Address [facility] [place] [address] Care Team Providers Care Relay Shop Tester Name Role Phone Coni Lim MD Primary Care Provider [phone] Encounter Details Date Type Department Care Team (Late st Contact Info) Description 06/07/2020 Telephone [place] [address] Keeley Paredes MD [facility] [address] OPHTHALMOLOGY [place] [id number] Social History Tobacco Use Types Packs/Day Years [...] on filedocumented in this encounter Care Teams Relay Shop Tester Relationship Specialty Start Date End Date Coni Lim MD [address] [place] [address] PCP - General 07/16/10 documented as of this encounter
--- OUTSIDE RECORDS SUMMARY | 2024-05-17 16:07 | XMS_ITS | Encounter Summary ---
Author Organization Replaced By [facility] Address [facility] [place] [address] Care Team Providers Care Apprentice/Lineman Name Role Phone Coni Lim MD Primary Care Provider [phone] Reason for Visit * Consultation (Routine) - Closed Specialty Diagnoses / Procedures Referred By Ruby garvin Referred To Contact Ophthalmology Diagnoses inflammed caruncle od Darjee, Jaymal, OD [address] [place] [address] Keeley Paredes MD [facility] [place] [address] Referral ID Status Reason Start Date Expiration Date V isits Requested Visits Authorized [id number] Closed Consult, Test & Treat 09/28/2019 09/27/2020 1 1 Encounter Details Date Type Department Care Team (Late st Contact Info) Description 05/24/2020 10:15 AM EDT Office [place] [address] Keeley Paredes MD [facility] [place] [address] Conjunctival lesion Social History Tobacco Use Types [...] conjunctiva documented in this encounter Care Teams Apprentice/Lineman Relationship Specialty Start Date End Date Coni Lim MD [address] [place] [address] PCP - General 07/16/10 documented as of this encounter
--- OUTSIDE RECORDS SUMMARY | 2024-05-17 16:07 | XMS_ITS | Encounter Summary ---
[place] [address] Care Team Providers Care Sagger Filler Name Role Phone Coni Lim MD Primary Care Provider Reason for Visit * Auth/Cert Specialty Diagnoses / Procedures Referred By Ruby garvin Referred To Contact Diagnoses Unstable angina Chest pain Procedures EMERGENCY IPI Referral ID Status Reason Start Date Expiration Date Visits Re quested Visits Authorized [id number] 1 1 Encounter Details Date Type Department Care Team (Latest Contact Info) Description 06/09/2021 9:25 AM EDT - 06/09/2021 11:59 PM EDT Hospital Encounter [place] [id number] Discharge Disposition: Home Social History Tobacco Use [...] mLs documented in this encounter Care Teams Sagger Filler Relationship Specialty Start Date End Date Coni Lim MD [address] [place] [address] PCP - General 07/16/10 documented as of this encounter
--- OUTSIDE RECORDS SUMMARY | 2024-05-17 16:07 | XMS_ITS | Encounter Summary ---
Author Organization [facility] [place] [address] Care Team Providers Care Primary Teaching Assistant Name Role Phone Coni Lim MD Primary Care Provider [phone] Encounter Details Date Type Department Care Team (Late st Contact Info) Description 05/24/2020 Telephone [place] [address] Keeley Paredes MD [facility] [address] Social History Tobacco Use Types Packs/Day Years [...] on filedocumented in this encounter Care Teams Primary Teaching Assistant Relationship Specialty Start Date End Date Coni Lim MD [address] [place] [address] PCP - General 07/16/10 documented as of this encounter
--- OUTSIDE RECORDS SUMMARY | 2024-05-17 16:08 | XMS_ITS | Encounter Summary ---
Author Organization [facility] [place] [address] Care Team Providers Care Comb Fixer Name Role Phone Coni Lim MD Primary Care Provider [phone] Reason for Visit * Reason Comments Chest Pain * Auth/Cert Specialty Diagnoses / Procedures Referred By Contac t Referred To Contact Diagnoses Unstable angina chest pain Referral ID Status Reason Start Date Expiration Date Visits Re quested Visits Authorized [id number] 1 1 Encounter Details Date Type Department Care Team (Late st Contact Info) Description 09/12/2017 12:10 PM EST - 09/14/2017 11:12 AM EST Emergency Inter[place] [address] Buster Doherty, [facility] [place] [address] Christos Buchanan MD [facility] [place] [address] Coronary artery disease, angina presence unspecified, unspecified vessel or lesion type, unspecified whether [place] or transplanted heart; Atherosclerosis of [place] coronary artery with unstable angina pectoris, unspecified whether [place] or transplanted heart Discharge Disposition: Home Social [...] Romeo Coe Patient Age: 52 y.o. Language: Uruguayan Race: White Ethnicity: Not nor Admit date: [...] please contact your inpatient physician through the [facility] Gum Worker . Issues afterhours and on weekends will be handled by the coding analyst on-call. Discharge Diagnoses (Hospital Problems) and Secondary [...] restenosis addressed with LAD stent angioplasty at [facility] in January 2014 (ABSORB Stent) 75% RCA [...] patient to come to the hospital today. Organisation And Methods Analyst is Dr. Vyas. ?? Currently, he watches [...] lightheadedness/presyncopal symptoms. 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 Vyas, approximately 1 week as an [...] PF, Split 07/30/2013 ??? Influenza Vaccine (Novel) [id number], Injectable 05/24/2009 ??? Influenza Vaccine w/Preservative, Split [...] Discharge References/Attachments PCI (PERCUTANEOUS CORONARY INTERVENTION): POST-OP (SWEDISH) documented in this encounter Discharge Instructions * [...] PCP [address] / [place] [address] 09/22/2017, 10:30 AM Florian Ling MD, Organisation And Methods Analyst [place], [place] Your Inpatient Doctor(s) at [facility]: Christos Buchanan MD Daniel Storms, MD Sean Li, MD Jeffrey R Wunderlich, MD Your Primary Care Provider: Coni Lim MD [address] / [place] [address] For questions regarding this document or issues relating to this hospitalization on the Medical Service, please contact your inpatient physician through the [facility] Gum Worker . Issues afterhours and on weekends will be handled by the Hospitalist staff on-call. * Attachments The following attachments cannot be sent through Care Everywhere. 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 Original notice to be scanned into patient's [...] 09/12/2017 5:31 PM EST [facility] via [facility]cher from ED s/p chest pressure. [...] Buchanan MD PCP: Coni Lim MD PCP#: [phone] CC: Chest Pain Patient Active Problem List [...] restenosis addressed with LAD stent angioplasty at [facility] in January 2014 (ABSORB Stent) 75% RCA [...] patient to come to the hospital today. Organisation And Methods Analyst is Dr. Vyas. Currently, he watches his [...] son (age 18 months), daughter 11 in [place], [place]. Takes care of his mother who has dementia and he takes her to dialysis. is disabled. Has grown daughter who is 29 years old. 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 Physical Exam: Vitals: Most Recent Vitals: 09/12/17 [...] restenosis addressed with LAD stent angioplasty at [facility] in January 2014 (ABSORB Stent) 75% RCA [...] two days ago. 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 He [...] reviewed the EKG: Sinus Rhythm, rate 82 MI, QRS and QTc within normal limits No [...] Emergency Medicine *This note was dictated with Cleanify software. 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 I've been disabled for five years due to Fibromyalgia and Arthritis. Home Environment: Lives with his , Dasia in [place], [place]. Social & Family Supports/Community Resources: , Friends, neighbors Dasia Coe (Spouse) [address] [place] [id number] (H) [phone] (M) Behavioral Health History: Per pt report, has Anxiety and Depression, (on Cymbalta and Wellbutrin). Substance Use/Abuse: Current every day smoker; 1-5 cigarettes a day. EtOH: None. Illicit Drug Use: Marijuana every day, medical use. Other Pertinent/Service Specific Information: None Health/Prescription Coverage: Primary Insurance: MEDICARE PART A & B Secondary Insurance: MEDICAID [place] Prescription Coverage: Yes, has Silver Script. Preferred Pharmacy: [id number] - [facility], [place] - [address] [facility] [id number] ? Not a 24 hour pharmacy; exact hours not known Other: None Primary Care Provider: Coni Lim MD [phone] Patient/Caregiver Goals of Treatment: To return home and to his normal activities. Potential Needs for Transition of Care: Rehab/SNF: Pt has never been a pt in a rehab setting. Home Health: [facility] in the past (after right [...] transition of care planning. TIMBO Barrett Pager: [phone] * Plan of Care - Keisha Mae [...] tele. Cont to monitor. 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 INDIVIDUALIZED FALL PREVENTION INTERVENTIONS: Patient-specific fall [...] 1 month of chest pressure, told by marine air ground task force planners that if he decided to be seen [...] METABOLIC PANEL Routine 09/14/2017 3:40 AM EST CONSUMER BANKER SCAN 09/14/2017 12:00 AM EST POCT GLUCOSE Routine 09/13/2017 7:50 PM EST POCT GLUCOSE Routine 09/13/2017 4:58 PM EST ECHO LMTD W/O CONTRAST W LMTD SPEC DOPP COLOR DOPP Routine 09/13/2017 2:44 PM EST Coronary artery disease, angina presence unspecified, unspecified vessel or lesion type, unspecified whether [place] or transplanted heart POCT GLUCOSE Routine 09/13/2017 11:32 AM EST CARDIAC CATHETERIZATION Routine 09/13/19 11:09 AM EST EKG 12-LEAD STAT 09/13/2017 7:49 AM EST Coronary artery disease, angina presence unspecified, unspecified vessel or lesion type, unspecified whether [place] or transplanted heart POCT GLUCOSE Routine 09/13/2017 [...] Routine 09/13/2017 6:32 AM EST CARDIAC ENZYMES ([facility]) STAT 09/13/2017 12:13 AM EST APTT STAT 09/13/2017 12:13 AM EST CARDIAC CATH SCAN 09/13/2017 12: 00 AM EST POCT GLUCOSE Routine 09/12/2017 9:14 PM EST CARDIAC ENZYMES ([facility]) STAT 09/12/2017 6:53 PM EST XR CHEST PA AND LATERAL STAT 09/12/19 2:02 PM EST HEMOGRAM STAT 09/12/2017 1:29 PM EST DIFFERENTIAL, AUTOMATED STAT 09/12/19 1:29 PM EST GOLD TUBE HOLD STAT 09/12/2017 1:29 PM EST BLUE TUBE HOLD STAT 09/12/2017 1:29 PM EST CARDIAC ENZYMES ([facility]) STAT 09/12/2017 1:29 PM EST APTT STAT [...] POINT OF CARE TEST [place] [address] * Differential, Automated (09/14/2017 3:40 AM EST) Neutrophil % 51.2 % [facility] Neutrophil Absolute 4.61 1.70 - 6.10 x10(3)/[facility] Lymph % 34.3 % [facility] Lymphocytes Abs 3.1 0.9 - 3.2 x10(3)/[facility] Monocyte % 8.6 % [facility] Monocyte Abs 0.8 0.3 - 0.9 x10(3)/[facility] Eos % 4.6 % [facility] Eosinophils Abs 0.4 0.0 - 0.4 x10(3)/[facility] Basophil % 0.9 % [facility] Baso Absolute 0.1 0.0 - 0.1 x10(3)/[facility] Immature Gran % 0.40 % [facility] Comment: Immature granulocytes(IG's)percentage and absolute count will include metamyelocytes, myelocytes, and promyelocytes. Blood smears from CBCs yielding IG's will be scanned manually for concordance. If this scan disagrees with the automated IG or if promyelocytes are noted, a manual differential will be performed. Immature Gran Absolute 0.04 0.00 - 0.04 x10(3)/[facility] Blood specimen (specimen) 09/14/2017 3:40 AM EST 09/14/2017 4:08 AM EST Narrative Resulting Agency Comment Spec In Lab Christos Buchanan [place] [address] * Hemogram (09/14/2017 3:40 AM EST) White Blood Cell 9.0 4.0 - 9.5 x10(3)/[facility] LABORATORY Red Blood Cell 5.28 4.58 - 5.54 x10(6)/[facility] Hemoglobin 15.0 13.7 - 16.5 gm/dL [facility] Hematocrit 45.8 40.5 - 48.5 % [facility] Mean Cell Volume 86.7 82.9 - 93.1 fL [facility] Mean Cell Hemoglobin 28.4 27.5 - 32.1 pg [facility] Mean Cell Hemoglobin Concentration 32.8 32.0 - 35.7 gm/dL [facility] Platelet 188 145 - 357 x10(3)/[facility]AT[facility] RDW Standard Deviation 43.6 36.0 - 45.0 [facility] RDW coefficient of variation 13.7 11.4 - 13.8 % [facility] Mean Platelet Volume 10.4 7.6 - 12.9 fL [facility] NRBC% auto 0.0 % [facility] NRBC Absolute 0.000 0.000 - 0.000 x10(3)/[facility] Blood specimen (specimen) 09/14/2017 3:40 AM EST 09/14/2017 4:08 AM EST Narrative Resulting Agency Comment Spec In Lab Christos Buchanan MD HEMATOLOGY ORDERABLE S [facility] [place] [address] * Prothrombin Time (09/14/2017 3:40 AM EST) [...] MD HEMATOLOGY ORDERABLE S Performing Organization Address [facility] Co de Phone Number [facility] [place] [address] * Magnesium (09/14/2017 3:40 AM EST) Magnesium 0.83 0.69 - 1.07 mmol/L [facility] Blood specimen (specimen) 09/14/2017 3:40 AM EST 09/14/2017 4:08 AM EST Narrative Resulting Agency Comment Spec In Lab Christos Buchanan MD CHEMISTRY ORDERABLES Performing Organization Address [facility] Co de Phone Number [facility] [place] [address] * Basic Metabolic Panel (non-fasting) (09/14/2017 3:40 [...] LABORATORY Est Glomerular Filtration Rate >60 >=60 [facility] Comment: The reported eGFR should be multiplied by 1.2 for patients. The MDRD is not an appropriate measure of renal function for patients with body mass extremes or in patients with acute kidney failure. http://AwesomenessTV/DHnkdep http://AwesomenessTV/DHMCnkf Blood specimen (specimen) 09/14/2017 3:40 AM EST 09/14/2017 4:08 AM EST Narrative Resulting Agency Comment Spec In Lab Christos Buchanan MD CHEMISTRY ORDERABLES Performing Organization Address [facility] Co de Phone Number [facility] [place] [address] * SCAN DOC: CONSUMER BANKER (09/14/2017 12:00 AM EST) Anatomical Region Laterality [...] CARE TEST O RDERABLES Performing Organization Address [facility]/ZIP Co de Phone Number [facility] [place] [address] * POCT Glucose (09/13/2017 4:58 PM EST) Glucose, POC 138 65 - 199 mg/dL [facility] Comment: Supplemental ranges: <140 mg/dL before meals <180 mg/dL all other times of the day Blood specimen (specimen) 09/13/2017 4:58 PM EST 09/13/2017 4:58 PM EST Christos Buchanan MD POINT OF CARE TEST O RDERABLES Performing Organization Address [facility]/State/ZIP Co de Phone Number [facility] [place] [address] * ECHO LMTD W/O CONTRAST W LMTD SPEC DOPP COLOR DOPP (09/13/2017 2:44 PM EST) EF 65 HEARTLAB SYSTEM Anatomical Region Laterality Modality Other 09/13/2017 Narrative 09/13/2017 3:16 PM EST Procedure: ?Transthoracic Echocardiogram Patient: ?LAQUITA Pop ? (Age): 1965(52y) Med Rec#: ? [id number] ?Sex: ?M ? Site Loc: ? [facility] ?Ht / Wt: ??180.3(cm)/101.6 Pt. Loc: ?Adult Floor ? BSA: ?2.21 Study Date: ?? 09/13/2017 ?Pt. Type: Outpatient Tape: ? Referring: Christos Buchanan ([id number]) Reading: Christos Buchanan ([id number]) Wood Carving Machine Operator: Meaghan Kim Diagnosis: *ICD-10-PCS Atherosclerotic heart disease of [place] coronary artery without angina pectoris (I25.10) BP: [...] E-wave Vmax ?0.6 ?m/sec ? MV deceleration mdnu403.5 ?msec ? MV A-wave Vmax ?0.5 ?m/sec [...] ? Mid-Inferior ?Normal ? Mid-Inferoseptal ?Normal ? [place]-Septal ? Normal ? [place]-Anterior ? Normal ? [place]-Lateral ?Normal ? [place]-Inferior ? Normal ? [place]-Tip ?Normal ? This report has been electronically signed by: Christos Buchanan M.D. ? 09/13/2017 15:16:25 Images reviewed and interpretation verified [facility] [place] Cardiac Ultrasound [facility] Procedure Note Christos Buchanan MD - 09/13/2017 Procedure: Transthoracic Echocardiogram Patient: LAQUITA Pop DOB(Age): 1965(52y) Med Rec#: [id number] Sex: M Site Loc: [facility] Ht / Wt: 180.3(cm)/101.6 Pt. Loc: Adult Floor BSA: 2.21 Study Date: 09/13/2017 Pt. Type: Outpatient Tape: Referring: Christos Buchanan ([id number]) Reading: Christos Buchanan ([id number]) Wood Carving Machine Operator: Meaghan Kim Diagnosis: *ICD-10-PCS Atherosclerotic heart disease of [place] coronary artery without angina pectoris (I25.10) BP: [...] MV E-wave Vmax 0.6 m/sec MV deceleration [id number] msec MV A-wave Vmax 0.5 m/sec MV [...] Normal Mid-Posterolateral Normal Mid-Inferior Normal Mid-Inferoseptal Normal [place]-Septal Normal [place]-Anterior Normal [place]-Lateral Normal [place]-Inferior Normal [place]-Tip Normal This report has been electronically signed by: Christos Buchanan M.D. 09/13/2017 15:16:25 Images reviewed and interpretation verified [facility] Card[facility]trasound [facility] Christos Buchanan MD ECHO ORDERABLES * POCT Glucose (09/13/2017 11:32 AM EST) Glucose, POC 104 65 - 199 mg/dL [facility] Comment: Supplemental ranges: <140 mg/dL before meals <180 mg/dL all other times of the day Blood specimen (specimen) 09/13/2017 11:32 AM EST 09/13/2017 11:32 AM EST Christos Buchanan MD POINT OF CARE TEST O RDERABLES Performing Organization Address City/State/[facility] Co de Phone Number [facility] [place] [address] * CARDIAC CATHETERIZATION (09/13/2017 11:09 AM EST) Anatomical Region Laterality Modality Other Narrative 09/13/2017 11:33 AM EST ?[facility] ? Cardiac Catheterization/Intervention Report ? Patient Name: Laquita, Romeo A. ? Procedure Date: 09/13/2017 ? A #: [id number] ? Primary Physician: Agusto Ball W ? Case #: [id number] ? File Name: [id number] ? Catheterization Order Number: [id number] ? [facility] ? Final Report [place], [place] ? Patient Name: ? Romeo A. Coe ? ID#: ?[id number] ? : ?1965 ? Procedure Date: ? [...] presented with: unstable angina (w/i 60 days). [place] ?Cardiovascular Society angina class was IV. This [...] Agusto Ball II, MD - 09/14/2017 [facility] Cardiac Catheterization/Intervention Report Patient Name: Romeo Coe Procedure Date: 09/13/2017 A #: [id number] Primary Physician: Agusto Ball Case #: [id number] File Name: [id number] Catheterization Order Number: [id number] [facility] FinalReport [place], [place] Patient Name: Romeo Coe ID#:[id number] :1965 Procedure Date: September 13, 2017 Case [...] presented with: unstable angina (w/i 60 days). [place] Cardiovascular Society angina class was IV. This [...] was present for the entire procedure. Dr. Augsto Ball M.D. was present during the moderate sedation intraservice time as documented by the sedation nurse. Case time =00:52. Dr. Agusto Ball M.D. performed the coronary angiography, leftheart catheterization, access site angiography, vascular closure device and IFR-coronary. Agusto Ball M.D. Electronically Signed by: Agusto Ball M.D. Report Finalized: 09/13/2017 11:30 Report Last Ammended: 09/14/2017 07:01 Christos Bcuhanan MD CARDIAC CATH ORDERAB LES * EKG 12 Lead (09/13/2017 7:49 AM EST) Ventricular rate 72 BPM MUSE SYSTEM Atrial Rate 72 BPM MUSE SYSTEM P-R Interval 138 ms MUSE SYSTEM QRS Duration 86 ms MUSE SYSTEM Q-T Interval 380 ms MUSE SYSTEM QTC Calculated (Bezet) 416 ms MUSE SYSTEM Calculated P [place] 5 degrees MUSE SYSTEM Calculated R [place] 23 degrees MUSE SYSTEM Calculated T [place] 28 degrees MUSE SYSTEM INTERPRETATION Normal sinus rhythm Normal ECG When compared with ECG of 12-SEP-2017 12:19, No significant change was found Confirmed by MD Segundo, Panda Leyva ([id number]) on 09/14/2017 9:09:15 AM MUSE SYSTEM 09/13/2017 [...] CARE TEST O RDERABLES Performing Organization Address [facility]/ZIP Co de Phone Number [facility] [place] [address] * (ABNORMAL) BMP w/fasting Glucose (09/13/2017 6:32 [...] of Diabetes Mellitus, Position Statement from the [place] [employer]. ??Diabetes Care, Volume 33, Supplement [...] LABORATORY Est Glomerular Filtration Rate >60 >=60 [facility] Comment: The reported eGFR should be multiplied by 1.2 for patients. The MDRD is not an appropriate measure of renal function for patients with body mass extremes or in patients with acute kidney failure. http://AwesomenessTV/DHnkdep http://AwesomenessTV/[facility] Blood specimen (specimen) 09/13/2017 6:32 AM EST 09/13/2017 6:41 AM EST Narrative Resulting Agency Comment Spec In Lab Christos Buchanan MD CHEMISTRY ORDERABLES Performing Organization Address [facility] Co de Phone Number [facility] [place] [address] * (ABNORMAL) APTT (09/13/2017 6:32 AM EST) [facility] Partial Thromboplastin Time 113(H) 25 - 35 sec [facility] Comment: The recommended therapeutic range for full dose, unfractionated heparin at [facility] is 80 ? 114 seconds. The use of the anti-Xa (heparin) level rather than the PTT is recommended for monitoring anticoagulation intensity in critically ill patients receiving unfractionated heparin by continuous IV infusion. Blood specimen (specimen) 09/13/2017 6:32 AM EST 09/13/2017 6:41 AM EST Narrative Resulting Agency Comment Spec In Lab Christos Buchanan MD HEMATOLOGY ORDERABLE S Performing Organization Address City/[facility]/ZIP Co de Phone Number [facility] [place] [address] * Differential, Automated (09/13/2017 6:32 AM EST) Neutrophil % 64.9 % [facility] Neutrophil Absolute 5.94 1.70 - 6.10 x10(3)/[facility] LABOR[facility] Lymph % 24.7 % [facility] Lymphocytes Abs 2.3 0.9 - 3.2 x10(3)/[facility] Monocyte % 5.3 % [facility] Monocyte Abs 0.5 0.3 - 0.9 x10(3)/[facility] Eos % 4.0 % [facility] Eosinophils Abs 0.4 0.0 - 0.4 x10(3)/[facility] Basophil % 0.7 % [facility] Baso Absolute 0.1 0.0 - 0.1 x10(3)/[facility] Immature Gran % 0.40 % [facility] Comment: Immature granulocytes(IG's)percentage and absolute count will include metamyelocytes, myelocytes, and promyelocytes. Blood smears from CBCs yielding IG's will be scanned manually for concordance. If this scan disagrees with the automated IG or if promyelocytes are noted, a manual differential will be performed. Immature Gran Absolute 0.04 0.00 - 0.04 x10(3)/[facility] Blood specimen (specimen) 09/13/2017 6:32 AM EST 09/13/2017 6:41 AM EST Narrative Resulting Agency Comment Spec In Lab Christos Buchanan MD HEMATOLOGY ORDERABLE S [facility] [place] [place] [address] * Hemogram (09/13/2017 6:32 AM EST) White Blood Cell 9.2 4.0 - 9.5 x10(3)/[facility] Red Blood Cell 5.29 4.58 - 5.54 x10(6)/[facility] Hemoglobin 15.4 13.7 - 16.5 gm/dL [facility] Hematocrit 44.9 40.5 - 48.5 % [facility] Mean Cell Volume 84.9 82.9 - 93.1 fL [facility] Mean Cell Hemoglobin 29.1 27.5 - 32.1 pg [facility] Mean Cell Hemoglobin Concentration 34.3 32.0 - 35.7 gm/dL [facility] Platelet 186 145 - 357 x10(3)/[facility]AT[facility] RDW Standard Deviation 42.9 36.0 - 45.0 fL [facility] RDW coefficient of variation 13.8 11.4 - 13.8 % [facility] Mean Platelet Volume 10.3 7.6 - 12.9 fL [facility] NRBC% auto 0.0 % [facility] NRBC Absolute 0.000 0.000 - 0.000 x10(3)/[facility] Blood specimen (specimen) 09/13/2017 6:32 AM EST 09/13/2017 6:41 AM EST Narrative Resulting Agency Comment Spec In Lab Christos Buchanan MD HEMATOLOGY ORDERABLE S Performing Organization Address [facility] Co de Phone Number [facility] [place] [address] * Blood culture (09/13/2017 6:32 AM EST) Blood Culture No growth at 5 days. [facility] Blood specimen (specimen) 09/13/2017 6:32 AM EST 09/13/2017 7:17 AM EST Comment:L FOREARM Narrative Resulting Agency Comment Spec In Lab Christos Buchanan MD MICROBIOLOGY - BLOOD ORDERABLES Performing Organization Address [facility] Co de Phone Number [facility] [place] [address] * Prothrombin Time (09/13/2017 6:32 AM EST) [...] MD HEMATOLOGY ORDERABLE S Performing Organization Address [facility] Co de Phone Number [facility] [place] [address] * Magnesium (09/13/2017 6:32 AM EST) Magnesium 0.84 0.69 - 1.07 mmol/L [facility] Blood specimen (specimen) 09/13/2017 6:32 AM EST 09/13/2017 6:41 AM EST Narrative Resulting Agency Comment Spec In Lab Christos Buchanan MD CHEMISTRY ORDERABLES Performing Organization Address [facility] Co de Phone Number [facility] [place] [address] * Triglyceride (09/13/2017 6:32 AM EST) Triglyceride 153 <=199 mg/dL [facility] Blood specimen (specimen) 09/13/2017 6:32 AM EST 09/13/2017 6:41 AM EST Narrative Resulting Agency Comment Spec In Lab Christos Buchanan MD CHEMISTRY ORDERABLES Performing Organization Address [facility] Co de Phone Number [facility] [place] [address] * HDL/Cholesterol Profile (09/13/2017 6:32 AM EST) [...] greater than or equal to 190 mg/dL. http://Urbasolar.com/CIC-LTK-Fqramoviv Measure LDL if Total Cholesterol minus HDL Cholesterol is greater than 220 mg/dL. Adults aged 40-75 with LDL 70-189 mg/dL should have their 10 year ASCVD risk estimated with the ACC/AHA ASCVD risk commercial construction estimator http://tools.acc.org/ZQVYA-Rwbx-Gfxsikqbc/ Statin should be discussed if risk greater [...] Buchanan MD CHEMISTRY ORDERABLES Performing Organization Address City/State/[facility] Co de Phone Number [facility] [place] [place] [address] * LDL Cholesterol, Direct (09/13/2017 6:32 AM EST) LDL Cholesterol, Direct 102 <=190 mg/dL [facility] Blood specimen (specimen) 09/13/2017 6:32 AM EST 09/13/2017 6:41 AM EST Narrative Resulting Agency Comment Spec In Lab Christos Buchanan MD CHEMISTRY ORDERABLES [facility] [place] [place] [address] * (ABNORMAL) Hemoglobin A1c (09/13/2017 6:32 AM [...] Mellitus, Diabetes Care 2013; 36: Suppl. 1, S17-56 Estimated Average Glucose 137 mg/dL [facility] [...] into estimated average glucose values. ??Diabetes Care 2008:31(8):8209-1836. Blood specimen (specimen) 09/13/2017 6:32 AM EST 09/13/2017 6:41 AM EST Narrative Resulting Agency Comment Spec In Lab Christos Buchanan MD CHEMISTRY ORDERABLES Performing Organization Address [facility] Co de Phone Number [facility] [place] [place] [address] * pro-Brain Natriuretic Peptide (09/13/2017 6:32 AM EST) NT-proBNP 15 <=125 pg/mL [facility] Blood specimen (specimen) 09/13/2017 6:32 AM EST 09/13/2017 6:41 AM EST Narrative Resulting Agency Comment Spec In Lab Christos Buchanan MD CHEMISTRY ORDERABLES Performing Organization Address [facility] [place] Phone Number [facility] [place] [place] [address] * (ABNORMAL) APTT (09/13/2017 12:13 AM EST) Partial Thromboplastin Time 50(H) 25 - 35 sec [facility] Comment: The recommended therapeutic range for full dose, unfractionated heparin at [facility] [place] is 80 ? 114 seconds. The use of the anti-Xa (heparin) level rather than the PTT is recommended for monitoring anticoagulation intensity in critically ill patients receiving unfractionated heparin by continuous IV infusion. Blood specimen (specimen) 09/13/2017 12:13 AM EST 09/13/2017 12:42 AM EST Narrative Resulting Agency Comment Spec In Lab Christos Buchanan MD HEMATOLOGY ORDERABLE S Performing Organization Address [facility] Co de Phone Number [facility] [place] [place] [address] * Cardiac Enzymes (LEB/CGP) (09/13/2017 12:13 AM [...] meets the diagnosis for a myocardial infarction (NV). Detection of a rise and/or fall of cTnT, with at least one value greater than the 99th percentile (> or = 0.01) and with at least one of the following ?? Symptoms of ischemia ?? New or presumed new significant AT-tgiknmw-E wave (ST-T) changes or new left bundle [...] additional sample may be indicated. Reference: Third [place] Definition of Myocardial Infarction. Journal of the [place] [employer] 2012;60:1581-98 Creatine Kinase 55 0 - 200 unit/L [facility] Blood specimen (specimen) 09/13/2017 12:13 AM EST 09/13/2017 12:42 AM EST Narrative Resulting Agency Comment Spec In Lab Christos Buchanan MD CHEMISTRY ORDERABLES [facility] [place] [id number] * SCAN DOC: CARDIAC CATH (09/13/2017 12:00 [...] CARE TEST O RDERABLES Performing Organization Address [facility]/ZIP Co de Phone Number [facility] [place] [address] * Cardiac Enzymes (LEB/CGP) (09/12/2017 6:53 PM [...] meets the diagnosis for a myocardial infarction (NV). Detection of a rise and/or fall of cTnT, with at least one value greater than the 99th percentile (> or = 0.01) and with at least one of the following ?? Symptoms of ischemia ?? New or presumed new significant [place]-qgrkhkg-H wave (ST-T) changes or new left bundle [...] additional sample may be indicated. Reference: [place] Definition of Myocardial Infarction. Journal of the [place] [employer] 2012;60:1581-98 Creatine Kinase 57 0 - 200 unit/L [facility] Blood specimen (specimen) 09/12/2017 6:53 PM EST 09/12/2017 7:02 PM EST Narrative Resulting Agency Comment Spec In Lab Christos Buchanan MD CHEMISTRY ORDERABLES Performing Organization Address [facility]/ZIP Co de Phone Number [facility] [place] [address] * XR Chest PA & Lateral (Generic) [...] No acute cardiopulmonary disease. Buster Nahomi Bessy [facility] DX ORDERABLES * Prothrombin Time (09/12/2017 1:29 [...] MD HEMATOLOGY ORDERAB LES Performing Organization Address [facility] Co de Phone Number [facility] [place] [address] * APTT (09/12/2017 1:29 PM EST) Partial Thromboplastin Time 28 25 - 35 sec [facility] Comment: The recommended therapeutic range for full dose, unfractionated heparin at [facility] [place] is 80 ? 114 [...] MD HEMATOLOGY ORDERAB LES Performing Organization Address [facility] Co de Phone Number [facility] [place] [place] [address] * pro-Brain Natriuretic Peptide (09/12/2017 1:29 PM EST) Pathologist [facility] NT-proBNP 20 <=125 pg/mL [facility] Blood specimen (specimen) Venous Draw / Unknown 09/12/2017 1:29 PM EST 09/12/2017 1:35 PM EST Narrative Resulting Agency Comment Spec In Lab Alejandro Blair MD CHEMISTRY ORDERABL ES Performing Organization Address [facility] Co de Phone Number [facility] [place] [address] * Gold Tube HOLD (09/12/2017 1:29 PM EST) Gold Hold Sample in lab. [facility] Blood specimen (specimen) Venous Draw / Unknown 09/12/2017 1:29 PM EST 09/12/2017 1:34 PM EST Alejandro Blair MD CHEMISTRY ORDERABL ES Performing Organization Address City/[facility]/[place] [address] * Blue Tube HOLD (09/12/2017 1:29 PM EST) Pathologist [facility] Blue Hold Sample in lab. [facility] Blood specimen (specimen) Venous Draw / Unknown 09/12/2017 1:29 PM EST 09/12/2017 1:34 PM EST Alejandro Blair MD HEMATOLOGY ORDERAB LES Performing Organization Address [facility] [place] [address] * Differential, Automated (09/12/2017 1:29 PM EST) Pathologist [facility] Neutrophil % 57.0 % [facility] Neutrophil Absolute 5.07 1.70 - 6.10 x10(3)/[facility] Lymph % 29.7 % [facility] Lymphocytes Abs 2.6 0.9 - 3.2 x10(3)/[facility] Monocyte % 7.8 % [facility] Monocyte Abs 0.7 0.3 - 0.9 x10(3)/[facility] Eos % 4.2 % [facility] Eosinophils Abs 0.4 0.0 - 0.4 x10(3)/[facility] Basophil % 0.8 % [facility] Baso Absolute 0.1 0.0 - 0.1 x10(3)/[facility] Immature Gran % 0.50 % [facility] Comment: Immature granulocytes(IG's)percentage and absolute count will include metamyelocytes, myelocytes, and promyelocytes. Blood smears from CBCs yielding IG's will be scanned manually for concordance. If this scan disagrees with the automated IG or if promyelocytes are noted, a manual differential will be performed. Immature Gran Absolute 0.04 0.00 - 0.04 x10(3)/[facility] Blood specimen (specimen) 09/12/2017 1:29 PM EST 09/12/2017 1:34 PM EST Narrative Resulting Agency Comment Spec In Lab Alejandro Blair MD HEMATOLOGY ORDERAB LES Performing Organization Address City/[facility] Co de Phone Number [facility] [place] [place] [address] * Hemogram (09/12/2017 1:29 PM EST) White Blood Cell 8.9 4.0 - 9.5 x10(3)/[facility] Red Blood Cell 5.07 4.58 - 5.54 x10(6)/[facility] Hemoglobin 14.8 13.7 - 16.5 gm/dL [facility] Hematocrit 43.3 40.5 - 48.5 % [facility] Mean Cell Volume 85.4 82.9 - 93.1 [facility] Mean Cell Hemoglobin 29.2 27.5 - 32.1 pg [facility] Mean Cell Hemoglobin Concentration 34.2 32.0 - 35.7 gm/dL [facility] Platelet 208 145 - 357 x10(3)/[facility] RDW Standard Deviation 42.5 36.0 - 45.0 [facility] RDW coefficient of variation 13.7 11.4 - 13.8 % [facility] Mean Platelet Volume 10.4 7.6 - 12.9 [facility] NRBC% auto 0.0 % [facility] NRBC Absolute 0.000 0.000 - 0.000 x10(3)/[facility] Blood specimen (specimen) 09/12/2017 1:29 PM EST 09/12/2017 1:34 PM EST Narrative Resulting Agency Comment Spec In Lab Alejandro Blair MD HEMATOLOGY ORDERAB LES Performing Organization Address City/[facility]/ZIP Co de Phone Number [facility] [place] [place] [address] * (ABNORMAL) Basic Metabolic Panel (non-fasting) (09/12/2017 [...] LABORATORY Est Glomerular Filtration Rate >60 >=60 [facility] Comment: The reported eGFR should be multiplied by 1.2 for patients. The MDRD is not an appropriate measure of renal function for patients with body mass extremes or in patients with acute kidney failure. http://Urbasolar.Poderopedia/DHnkdep http://Urbasolar.Poderopedia/DHMCnkf Blood specimen (specimen) 09/12/2017 1:29 PM EST 09/12/2017 1:34 PM EST Narrative Resulting Agency Comment Spec In Lab Alejandro Blair MD CHEMISTRY ORDERABL ES Performing Organization Address [facility] Co de Phone Number [facility] [place] [place] [address] * Cardiac Enzymes (LEB/CGP) (09/12/2017 1:29 PM [...] meets the diagnosis for a myocardial infarction (NV). Detection of a rise and/or fall of cTnT, with at least one value greater than the 99th percentile (> or = 0.01) and with at least one of the following ?? Symptoms of ischemia ?? New or presumed new significant YO-amsygqt-A wave (ST-T) changes or new left bundle [...] additional sample may be indicated. Reference: [place] Definition of Myocardial Infarction. Journal of the [place] [employer] 2012;60:1581-98 Creatine Kinase 65 0 - 200 unit/L [facility] Blood specimen (specimen) 09/12/2017 1:29 PM EST 09/12/2017 1:34 PM EST Narrative Resulting Agency Comment Spec In Lab Alejandro Blair MD CHEMISTRY ORDERABL ES [facility] [place] [place] [address] * EKG 12 Lead (09/12/2017 12:19 PM EST) Ventricular rate 82 BPM MUSE SYSTEM Atrial Rate 82 BPM MUSE SYSTEM P-R Interval 136 ms MUSE SYSTEM QRS Duration 80 ms MUSE SYSTEM Q-T Interval 358 ms MUSE SYSTEM QTC Calculated (Bezet) 418 ms MUSE SYSTEM Calculated P [place] 13 degrees MUSE SYSTEM Calculated R [place] 33 degrees MUSE SYSTEM Calculated T [place] 34 degrees MUSE SYSTEM INTERPRETATION Normal sinus [...] unspecified vessel or lesion type, unspecified whether [place] or transplanted heart Atherosclerosis of [place] coronary artery with unstable angina pectoris, unspecified whether [place] or transplanted heart Unstable angina Intermediate coronary [...] 75 mg, Oral, DAILY, First dose on [place] 09/13/17 at 0900, Until Discontinued, Routine Given 09/14/2017 8:30 AM EST 75 mg Given 09/13/2017 8:50 AM EST 75 mg DULoxetine (CYMBALTA) capsule 60 mg 60 mg, Oral, 2 TIMES DAILY, First dose on [facility] 09/12/17 at 2100, Until Discontinued, Routine Given 09/14/2017 8:30 AM EST 60 mg Given 09/13/2017 8:20 PM EST 60 mg Given 09/13/2017 8:51 AM EST 60 mg gabapentin (NEURONTIN) capsule 600 mg 600 mg, Oral, 2 TIMES DAILY BEFORE BREAKFAST AND LUNCH, First dose (after last modification) on [place] 09/13/17 at 0730, Until Discontinued, Routine Given 09/14/2017 8:00 AM EST 600 mg Given 09/13/2017 1:23 PM EST 600 mg Given 09/13/2017 8:00 AM EST 600 mg gabapentin (NEURONTIN) capsule 900 mg 900 mg, Oral, NIGHTLY, First dose on [facility] 09/12/17 at 2100, Until Discontinued, Routine Given 09/13/2017 8:20 PM EST 900 mg Given 09/12/2017 8:30 PM EST 900 mg heparin (porcine) injection 0-4,000 Units 0-4,000 Units, Intravenous, BOLUS PER HEPARIN PROTOCOL, Starting on [facility] 09/12/17 at 1512, Until [place] 09/13/17 at 1015, Per Protocol, START ADJUSTMENT SCHEDULE 6 HOURS AFTER STARTING INFUSION aPTT Between 60 - 79 seconds: Bolus 2,000 units aPTT Less than 60 seconds: Bolus 4,000 units Increase infusion and recheck aPTT in 6 hours. , Routine Given 09/13/2017 1:18 AM EST 4,000 Units heparin (porcine) injection 4,000 Units 4,000 Units, Intravenous, ONCE, 1 dose, On [facility] 09/12/17 at 1515, INITIAL LOADING DOSE Maximum [...] Transdermal, 2 TIMES DAILY, First dose on [place] 09/13/17 at 0415, Until Discontinued, Verify nicotine [...] 0850 (Given - Provider: Rupal Munguia RN)1002 ([facility] Hold - Provider: Admin Adt - Reason: Transfer to a Procedural area)1134 ([facility] Unhold - Provider: Admin Adt) 0830 (Given - Provider: Rupal Munguia RN) DULoxetine (CYMBALTA) capsule 60 mg 60 mg, Oral, 2 TIMES DAILY, First dose on 09/12/17 at 2100, Until Discontinued, Routine 2030 (Given - Provider: Keisha Mae RN) 0851 (Given - Provider: Rupal Munguia RN)1002 ([facility] Hold - Provider: Admin Adt - Reason: Transfer to a Procedural area)1134 ([facility] Unhold - Provider: Admin Adt)2020 (Given - Provider: Keisha Mae RN) 0830 (Given - Provider: Rupal Munguia RN) gabapentin (NEURONTIN) capsule 600 mg 600 mg, Oral, 2 TIMES DAILY BEFORE BREAKFAST AND LUNCH, First dose (after last modification) on 09/13/17 at 0730, Until Discontinued, Routine 0800 (Given - Provider: Rupal Munguia RN)1002 ([facility] Hold - Provider: Admin Adt - Reason: Transfer to a Procedural area)1130 (Automatically Held - Provider: Admin Adt)1134 ([facility] Unhold - Provider: Admin Adt)1323 (Given - Provider: Rupal Munguia RN - Comment: late lunch) 0800 (Given - Provider: Rupal Munguia RN) gabapentin (NEURONTIN) capsule 900 mg 900 mg, Oral, NIGHTLY, First dose on 09/12/17 at 2100, Until Discontinued, Routine 2030 (Given - Provider: Keisha Mae RN) 1002 ([facility] Hold - Provider: Admin Adt - Reason: Transfer to a Procedural area)1134 ([facility] Unhold - Provider: Admin Adt)2019 (Given - [...] 0852 (Given - Provider: Rupal Munguia RN)1002 ([facility] Hold - Provider: Admin Adt - Reason: Transfer to a Procedural area)1134 ([facility] Unhold - Provider: Admin Adt) isosorbide mononitrate [...] 0853 (Given - Provider: Rupal Munguia, VERO)1002 ([facility] Hold - Provider: Admin Adt - Reason: Transfer to a Procedural area)1134 ([facility] Unhold - Provider: Admin Adt) 0831 (Given - Provider: Rupal Munguia RN) meTOPROLOL tartrate (LOPRESSOR) tablet 50 mg 50 mg, Oral, 2 TIMES DAILY, First dose on 09/12/17 at 2100, Until Discontinued, Routine 2030 (Given - Provider: Keisha Mae, VERO) 0852 (Given - Provider: Rupal Munguia, VERO)1002 ([facility] Hold - Provider: Admin Adt - Reason: Transfer to a Procedural area)1134 ([facility] Unhold - Provider: Admin Adt)2020 (Given - [...] Rupal Munguia RN - Reason: Patient/family refused)1002 ([facility] Hold - Provider: Admin Adt - Reason: Transfer to a Procedural area)1134 ([facility] Unhold - Provider: Admin Adt) 0900 (Not Given - Provider: Rupal Munguia RN - Reason: Patient/family refused) nicotine (NICODERM CQ) 14 mg/24 hr patch Patch Removal(Linked Group 1) Transdermal, DAILY, First dose on 09/13/17 at 1615, Until Discontinued, Remove nicotine 14 mg/24 hr patch 1002 ([facility] Hold - Provider: Admin Adt - Reason: Transfer to a Procedural area)1134 ([facility] Unhold - Provider: Admin Adt)1615 (Patch Not [...] comment - Comment: not placed; pt refused)1002 ([facility] Hold - Provider: Admin Adt - Reason: Transfer to a Procedural area)1134 ([facility] Unhold - Provider: Admin Adt)2100 (Not Given [...] 0852 (Given - Provider: Rupal Munguia RN)1002 ([facility] Hold - Provider: Admin Adt - Reason: Transfer to a Procedural area)1134 ([facility] Unhold - Provider: Admin Adt)2019 (Given - Provider: Keisha Mae RN) 0830 (Given - Provider: Rupal Munguia RN) pramipexole (MIRAPEX) tablet 0.5 mg 0.5 mg, Oral, NIGHTLY, First dose on 09/12/17 at 2100, Until Discontinued, Routine 2030 (Given - Provider: Keisha Mae RN) 1002 ([facility] Hold - Provider: Admin Adt - Reason: Transfer to a Procedural area)1134 ([facility] Unhold - Provider: Admin Adt)2018 (Given - Provider: Keisha Mae RN) rosuvastatin (CRESTOR) tablet 20 mg 20 mg, Oral, EVERY EVENING, First dose on 09/12/17 at 1800, Until Discontinued, Routine 1818 (Given - Provider: Mariela So, VERO) 1002 ([facility] Hold - Provider: Admin Adt - Reason: Transfer to a Procedural area)1134 ([facility] Unhold - Provider: Admin Adt)1639 (Given - Provider: Rupal Munguia, VERO) sodium chloride 0.9 % flush 5 mL 5 mL, Intravenous, 2 TIMES DAILY, First dose on 09/12/17 at 2100, Until Discontinued, Routine 2100 (Not Given - Provider: Keisha Mae RN - Reason: Contraindicated - Comment: iv infusing) 0900 (Not Given - Provider: Rupal Munguia RN - Reason: Contraindicated)1002 ([facility] Hold - Provider: Admin Adt - Reason: Transfer to a Procedural area)1134 ([facility] Unhold - Provider: Admin Adt)2099 (Not Given [...] (Given - Provider: Keisha Mae RN) 1002 ([facility] Hold - Provider: Admin Adt - Reason: Transfer to a Procedural area)1134 ([facility] Unhold - Provider: Admin Adt)2019 (Given - [...] - Reason: Transfer to a Procedural area)1015 ([facility] Unhold - Provider: Admin Adt) heparin (porcine) [...] - Reason: Transfer to a Procedural area)1134 ([facility] Unhold - Provider: Admin Adt) lidocaine (XYLOCAINE) [...] RN)0809 (Given - Provider: Rupal Munguia RN)1002 ([facility] Hold - Provider: Admin Adt - Reason: Transfer to a Procedural area)1134 ([facility] Unhold - Provider: Admin Adt) oxyCODONE (ROXICODONE) immediate release tablet 10 mg 10 mg, Oral, 4 TIMES DAILY PRN, Starting on 09/12/17 at 1735, Until 09/14/17 at 1312, pain unresponsive to tylenol, Routine 1002 ([facility] Hold - Provider: Admin Adt - Reason: Transfer to a Procedural area)1134 ([facility] Unhold - Provider: Admin Adt)2024 (Given - [...] provided on this medication record., Routine 1002 ([facility] Hold - Provider: Admin Adt - Reason: Transfer to a Procedural area)1134 ([facility] Unhold - Provider: Admin Adt) sodium chloride [...] UA) documented in this encounter Care Teams Comb Fixer Relationship Specialty Start Date End Date Coni Lim MD [address] [place] [address] PCP - General 07/16/10 documented as of this encounter
--- OUTSIDE RECORDS SUMMARY | 2024-05-17 16:08 | XMS_ITS | Encounter Summary ---
Author Organization [facility] Address [facility] [place] [address] Care Team Providers Care Contracting Analyst Name Role Phone Coni Lim MD Primary Care Provider [phone] Reason for Visit * Auth/Cert Specialty Diagnoses / Procedures Referred By Ruby t Referred To Contact Diagnoses ACS (acute coronary syndrome) UNSTABLE ANGINA Referral ID Status Reason Start Date Expiration Date Visits Re quested Visits Authorized [id number] 1 1 Encounter Details Date Type Department Care Team (Late st Contact Info) Description 03/14/2019 1:01 PM EDT - 03/14/2019 2:01 PM EDT [place] [id number] Lexus Gutiérrez MD [facility] [place] [address] CARDIAC CATHETERIZATION Social History Tobacco Use Types [...] Contact Information: MD Esperanza Solis, KRYSTINA Bush, ZIG ZAG STITCHER [phone] Discharge Diagnoses (Hospital Problems) and Secondary Diagnoses [...] with a pmhx of CAD s/p multiple JAICNDA PCIs to the mid LAD due tofrequent instent restenosis since 2011 and last JACINDA PCI to the RCA in 11/2016 following UAP, DM2, HTN, HLD, TIA and GERD who was transferred from [facility] with a diagnosis of UAP. ?? [...] was called. ?? His last admission to [facility] was in Aug [...] started on Heparin gtt and transferred to [facility] for cardiac cath. Hospital Course: Undifferentiated Chest Pain - Coronary Vasospasm/Microvessel angina vs Non- Cardiac Chest Pain Romeo Coe is a 53 yo M transferred from [facility] for evaluation of unstable angina. Troponins [...] PF, Split 07/30/2013 ??? Influenza Vaccine (Novel) [id number], Injectable 05/24/2009 ??? Influenza Vaccine w/Preservative, Split [...] appointments: During 8am-5pm Thursday through Thursday call [phone] to speak with a nurse in the cardiology clinic All other times call [phone] and ask to speak to the adjunct professor of english defensive secondary coach. Return to work: Ok to resume, no heavy lifting for one week (nothing over 10 lbs) Driving: No driving for 48 hours after catheterization. Follow up Appointments: PCP Coni Lim MD/Keo Ballard [phone] Your follow up appointment is scheduled for March 25, 2019 at 10 45 am Cardiology- Dr. Lawson - [phone] (First apt at [facility], then you will be seen at [facility] thereafter).Your follow up appointment is scheduled for Saturday April 13, 2019 at 1:15 pm Home oxygen therapy: N/A Arrangements for VNA/home care: none Discharge References/Attachments None Esperanza Collier APRN Cardiovascular Medicine Pager [phone] 03/16/2019 documented in this encounter Discharge Instructions * Discharge Instructions* Esperanza Collier APRN - 03/16/2019 3:00 PM EDT Call your doctor if: Chest pain, shortness of breath, pain or swelling in legs occurs. If you have non-emergent questions between now and the time of your follow up appointments: During 8am-5pm Thursday through Thursday call [phone] to speak with a nurse in the cardiology clinic All other times call [phone] and ask to speak to the adjunct professor of english defensive secondary coach. Return to work: Ok to resume, no heavy lifting for one week (nothing over 10 lbs) Driving: No driving for 48 hours after catheterization. Follow up Appointments: PCP Coni Lim MD/Keo Ballard [phone] Your follow up appointment is scheduled for March 25, 2019 at 10 45 am Cardiology- Dr. Lawson - [phone] (First apt at [facility], then you will be seen at [facility] thereafter).Your follow up appointment is scheduled [...] Progress Note Patient Name: Romeo Coe Service: EAR PULL MACHINE OPERATOR / PA Responsible Attending: Wale Mckeon [...] Full code Discussed with MD Esperanza Brar [facility] Cardiovascular Medicine Pager [phone] 03/16/2019 Attending Community Living Coach Addendum: This patient was seen in conjunction with Esperanza Collier as part of a shared visit. I have independently interviewed and examined the patient and reviewed the pertinent diagnostic information. I agree with the principal findings documented above. The assessment and plan were formulated in discussion with me. Ruled out PE with CT today. Ready for discharge on medical therapies. Wale Mckeon MD, [facility] Staff Community Living Coach pager [phone] * Jacqueline Montes De Oca RN - [...] Progress Note Patient Name: Romeo Coe Service: EAR PULL MACHINE OPERATOR / PA Responsible Attending: Wale Mckeon MD Reason for continued hospitalization: Evaluation and management of unstable angina S/p [facility] Medication adjustment Active Problems: Active [...] Full code Discussed with MD Esperanza Brar [facility] Cardiovascular Medicine Pager [phone] 03/15/2019 Attending Community Living Coach Addendum: This patient was seen in conjunction [...] limited us thus far. Wale Mckeon MD, [facility], [facility] Staff Community Living Coach pager [phone] * Wale Mckeon MD - 03/14/2019 9:23 AM EDT Images from the original note were not included. Inpatient Cardiology Progress Note Patient Name: Romeo Coe Service: EAR PULL MACHINE OPERATOR / PA Responsible Attending: Wale Mckeon MD Reason for continued hospitalization: Evaluation and management of unstable angina Awaiting [facility] today Active Problems: Active Hospital Problems Diagnosis ??? ACS (acute coronary syndrome) Resolved Hospital Problems No resolved problems to display. Interval History: Admitted overnight in the setting of unstable angina. Troponins negative. TTE with preserved EF at 63% and no WMA. Awaiting [facility] today. Review of Systems: Review [...] Full code Discussed with MD Siri Brar, ZIG ZAG STITCHER Pager [phone] 03/14/2019 Attending Community Living Coach Addendum: This patient was seen in conjunction [...] regimen today (include vasodilator) Wale Mckeon MD, [facility], [facility] Staff Community Living Coach pager [phone] documented in this encounter H&P Notes * [...] TIA and GERD who was transferred from [facility] with a diagnosis of UAP. He [...] EMS was called. His last admission to [facility] was in Aug [...] started on Heparin gtt and transferred to [facility] for cardiac cath. [...] of Onset ??? Myocardial Infarction Father 46 [place], CABG ??? Heart Disease Father ??? Diabetes [...] file Gets together: Not on file Attends anglican service: Not on file Active member of [...] Lives with and daughter at home in [place], [place]. He is disabled now. He used [...] edema . Pulses palpable, no calf tenderness Neuro/DAIRY BACTERIOLOGIST: AAO x 3, No evident deficits Skin/Integumentary: [...] 0.1 x10(3)/mcL Immature Gran % 0.30 % Ilsseth Gran Abs 0.02 0.00 - 0.04 x10(3)/mcL [...] multiple PCIs since 2011. 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 No interventions. Right radial cath site [...] TIA and GERD who was transferred from [facility] with a diagnosis of UAP Past Medical History: Diagnosis Date ??? Allergy ??? CAD (coronary artery disease), non-obstructive 05/31/2012 ??? Depression ??? DM (diabetes mellitus) 05/31/2012 ??? Dyslipidemia 05/31/2012 ??? GERD (gastroesophageal reflux disease) 05/31/2012 ??? HTN (hypertension) 05/31/2012 ??? Hx-TIA (transient ischemic attack) 06/03/2012 ??? Smoker 05/31/2012 Hospitalizations Within the Past 30 Days: no [facility] admits in last 30 days. Anticipated Length Of Stay (If known): 1-3 days Current Decision-Making Capacity: Patient is A&Ox4 and able to make all medical decisions Advance Care Planning: Full Code Not in EPIC.This author discussed ADs with patient and offered advance directive booklet and forms,patient deferred will discuss with family at a later time. [place] and [place] of guardianship explained. If AD's have not been completed then Spouse Dasia would be surrogate decision maker per [place] surrogate decision making law. Current Coping/Education/Information Needs: Current coping questions and concerns have been addressed. Current Functional Ability: assist of staff Functional Status Prior to Admission: independent with ADLs, driving, no DME used at baseline. Home Environment: lives in 2 level house, bedroom downstairs, no stairs to enter from outside. [address] [facility] [address] Social & Family Supports/Community Resources: lives with spouse and daughter Extended Emergency Contact Information Primary Emergency Contact: Dasia Coe Address: [address] [place] [address] [facility] Mobile Relation: Spouse Health/Prescription Coverage: Primary Insurance: MEDICARE Secondary Insurance: N/A Prescription Coverage: Yes Preferred Pharmacy: [id number] [place] [id number] [facility] [address] [place] [id number] Other: none Primary Care Provider: Coni Lim MD [phone] Patient/Caregiver Goals of Treatment: return to previous [...] of care planning. Rashmi Simmons, VERO Nurse Wind Turbine Controls Engineer Pager [phone] * Op Note - Lexus Gutiérrez MD - 03/14/2019 10:54 AM EDT [facility] Operative Note Patient Name: Romeo Coe : [id number] MR#: [id number] Case Date: 03/14/2019 Surgeon: Surgeon(s) and Role: * Lexus Gutiérrez MD - Primary * Satnam Leger MD - Fellow Preoperative diagnosis: ?CAD Postoperative diagnosis: No new obstructive lesions from prior cath Procedure(s) (LRB): CARDIAC CATHETERIZATION (N/A) CORONARY ANGIOGRAPHY; W [facility],POSSIBLE PCI (N/A) Access: Radial provided good support for procedure. 6 Fr RRA with TR band in place, good hemostasis. The patient tolerated the procedures smoothly and was transferred from the cardiac catheterization lab to the next level of care in stable condition, without pain. No evident early complications. Results discussed with service custom shop worker Dr Mckeon, and with the patient. He did not have family that he preferred we call. He needs to be connected with a referring custom shop worker locally (seen at [facility]). A time-out was conducted prior to [...] Dean had a good night. Arrived from [facility] hospital on Heparin drip. Denied chest [...] further details. Ed Simpson MD 03/14/2019 Pager [phone] documented in this encounter Plan of Treatment [...] please contact the number below. Esperanza Collier ZIG ZAG STITCHER IMG CT ORDERABLES * POCT Glucose (03/16/2019 11:34 AM EDT) Glucose, POC 106 65 - 199 mg/dL [facility] Comment: Supplemental ranges: <140 mg/dL before meals <180 mg/dL all other times of the day Blood specimen (specimen) 03/16/2019 11:34 AM EDT 03/16/2019 11:34 AM EDT Wale Mckeon MD POINT OF CARE TEST O RDERABLES Performing Organization Address City/[facility]/ZIP Co de Phone Number [facility] [place] [address] * POCT Glucose (03/16/2019 7:38 AM EDT) Glucose, POC 102 65 - 199 mg/dL [facility] Comment: Supplemental ranges: <140 mg/dL before meals <180 mg/dL all other times of the day Blood specimen (specimen) 03/16/2019 7:38 AM EDT 03/16/2019 7:38 AM EDT Wale Mckeon MD POINT OF CARE TEST O RDERABLES Performing Organization Address [facility] Co de Phone Number [facility] [place] [address] * EKG 12 Lead (03/16/2019 7:07 AM EDT) Ventricular rate 59 BPM MUSE SYSTEM Atrial Rate 59 BPM MUSE SYSTEM P-R Interval 148 ms MUSE SYSTEM QRS Duration 88 ms MUSE SYSTEM Q-T Interval 408 ms MUSE SYSTEM QTC Calculated (Bezet) 403 ms MUSE SYSTEM Calculated P Remsen 7 degrees MUSE SYSTEM Calculated R Remsen 23 degrees MUSE SYSTEM Calculated T Remsen 40 degrees MUSE SYSTEM INTERPRETATION Sinus bradycardia Otherwise normal ECG When compared with ECG of 15-MAR-2019 20:23, No significant change was found Confirmed by MD SOUMYA, JENNIFER ([id number]) on 03/16/2019 8:30:39 AM MUSE SYSTEM 03/16/2019 7:07 AM EDT 03/16/2019 8:30 AM EDT Siri Bush APRN ECG ORDERABLES Performing Organization Address City/[facility] Co de Phone Number MUSE SYSTEM * Differential, Automated (03/16/2019 5:07 AM EDT) Neutrophil % 48.9 % [facility] Neutrophil Absolute 3.25 1.70 - 6.10 x10(3)/mcL [facility] Lymph % 38.1 % [facility] Lymphocytes Abs 2.5 0.9 - 3.2 x10(3)/[facility] Monocyte % 8.0 % [facility] Monocyte Abs 0.5 0.3 - 0.9 x10(3)/[facility] Eos % 4.2 % [facility] Eosinophils Abs 0.3 0.0 - 0.4 x10(3)/[facility] Basophil % 0.5 % [facility] Baso Absolute 0.0 0.0 - 0.1 x10(3)/[facility] Immature Gran % 0.30 % [facility] Comment: Immature granulocytes(IG's)percentage and absolute count will include metamyelocytes, myelocytes, and promyelocytes. Blood smears from CBCs yielding IG's will be scanned manually for concordance. If this scan disagrees with the automated IG or if promyelocytes are noted, a manual differential will be performed. Immature Gran Absolute 0.02 0.00 - 0.04 x10(3)/[facility] Blood specimen (specimen) 03/16/2019 5:07 AM EDT 03/16/2019 5:24 AM EDT Narrative Resulting Agency Comment Spec In Lab Siri Bush APRN HEMATOLOGY ORDERAB LES [facility] [place] [address] * Hemogram (03/16/2019 5:07 AM EDT) White Blood Cell 6.6 4.0 - 9.5 x10(3)/[facility] Red Blood Cell 5.33 4.58 - 5.54 x10(6)/[facility] Hemoglobin 15.6 13.7 - 16.5 gm/dL [...] CENTER LABORATORY Platelet 154 145 - 357 x10(3)/[facility] RDW Standard Deviation 38.3 36.0 - 45.0 [facility] RDW coefficient of variation 12.5 11.4 - 13.8 % [facility] Mean Platelet Volume 10.9 7.6 - 12.9 [facility] NRBC% auto 0.0 % [facility] NRBC Absolute 0.000 0.000 - 0.000 x10(3)/[facility] Blood specimen (specimen) 03/16/2019 5:07 AM EDT 03/16/2019 5:24 AM EDT Narrative Resulting Agency Comment Spec In Lab Siri Bush APRN HEMATOLOGY ORDERAB LES [facility] [place] [address] * (ABNORMAL) BMP w/fasting Glucose (03/16/2019 5:07 [...] of Diabetes Mellitus, Position Statement from the [place] [employer]. ??Diabetes Care, Volume 33, Supplement [...] of body mass or the acutely ill. http://PartTec/DHnkf eGFR 113 >=60 mL/min/1. 73 m?? [facility] Comment: The eGFR was calculated using the CKD-EPI equation. As with all creatinine based estimates of kidney function, eGFR values calculated with the CKD-EPI equation are not accurate in patients with acute kidney failure, extremes of body mass or the acutely ill. http://PartTec/DHMCnkf Blood specimen (specimen) 03/16/2019 5:07 AM EDT 03/16/2019 5:24 AM EDT Narrative Resulting Agency Comment Spec In Lab Siri uBsh APRN CHEMISTRY ORDERABL ES [facility] [place] [address] * EKG 12 Lead (03/15/2019 8:23 PM EDT) Ventricular rate 65 BPM MUSE SYSTEM Atrial Rate 65 BPM MUSE SYSTEM P-R Interval 140 ms MUSE SYSTEM QRS Duration 86 ms MUSE SYSTEM Q-T Interval 384 ms MUSE SYSTEM QTC Calculated (Bezet) 399 ms MUSE SYSTEM Calculated P Remsen 16 degrees MUSE SYSTEM Calculated R Remsen 39 degrees MUSE SYSTEM Calculated T Remsen 37 degrees MUSE SYSTEM INTERPRETATION Normal sinus rhythm Normal ECG When compared with ECG of 15-MAR-2019 10:49, No significant change was found Confirmed by MD SOUMYA, JENNIFER ([id number]) on 03/16/2019 12:17:34 AM MUSE SYSTEM 03/15/2019 8:23 PM EDT 03/16/2019 12:17 AM EDT Wale Mckeon MD ECG ORDERABLES Performing Organization Address [facility]/ZIP Co de Phone Number MUSE SYSTEM [...] RDERABLES [facility] [place] [address] * POCT Glucose (03/15/2019 4:58 PM EDT) Glucose, POC 109 65 - 199 mg/dL [facility] Comment: Supplemental ranges: <140 mg/dL before meals <180 mg/dL all other times of the day Blood specimen (specimen) 03/15/2019 4:58 PM EDT 03/15/2019 4:58 PM EDT Wale Mckeon MD POINT OF CARE TEST O RDEFE Performing Organization Address City/[facility]/ZIP Co de Phone Number [facility] [place] [address] * POCT Glucose (03/15/2019 11:47 AM EDT) Pathologist [facility] Glucose, POC 110 65 - 199 mg/dL [facility] Comment: Supplemental ranges: <140 mg/dL before meals <180 mg/dL all other times of the day Blood specimen (specimen) 03/15/2019 11:47 AM EDT 03/15/2019 11:47 AM EDT Wale Mckeon MD POINT OF CARE TEST O EVITA Performing Organization Address [facility] Co de Phone Number [facility] [place] [address] * Troponin (03/15/2019 11:17 AM EDT) [facility] Troponin-T <0.01 0.00 - 0.00 ng/mL [facility] Comment: The 99th percentile for Troponin T is less than 0.01 ng/mL, any detectable cTnT concentration using this assay should be considered elevated. According to the third universal definition of myocardial infarction the following criteria with a clinical presentation consistent with acute myocardial ischemia meets the diagnosis for a myocardial infarction ([place]). Detection of a rise and/or fall of cTnT, with at least one value greater than the 99th percentile (> or = 0.01) and with at least one of the following ?? Symptoms of ischemia ?? New or presumed new significant [id number] wave (ST-T) changes or new left bundle [...] additional sample may be indicated. Reference: Third [place] Definition of Myocardial Infarction. Journal of the [place] College of Cardiology 2012;60:1581-98 Blood specimen (specimen) 03/15/2019 11:17 AM EDT 03/15/2019 11:42 AM EDT Narrative Resulting Agency Comment Spec In Lab Esperanza Collier KRYSTINA CHEMISTRY ORDERABLES Performing Organization Address [facility] Co de Phone Number [facility] [place] [address] * EKG 12 Lead (03/15/2019 10:49 AM EDT) Ventricular rate 59 BPM MUSE SYSTEM Atrial Rate 59 BPM MUSE SYSTEM P-R Interval 140 ms MUSE SYSTEM QRS Duration 86 ms MUSE SYSTEM Q-T Interval 398 ms MUSE SYSTEM QTC Calculated (Bezet) 394 ms MUSE SYSTEM Calculated P Remsen 13 degrees MUSE SYSTEM Calculated R Remsen 42 degrees MUSE SYSTEM Calculated T Remsen 49 degrees MUSE SYSTEM INTERPRETATION Sinus bradycardia Otherwise normal ECG When compared with ECG of 15-MAR-2019 07:08, No significant change was found Confirmed by MD Buchanan Timothy ([id number]) on 03/15/2019 12:09:31 PM MUSE SYSTEM 03/15/2019 10:4 9 AM EDT 03/15/2019 12:09 PM EDT Esperanza Cohen Amira FLAHERTY ECG ORDERABLES Performing Organization Address [facility] de Phone Number MUSE SYSTEM [...] CARE TEST O RDERABLES Performing Organization Address [facility] Co de Phone Number [facility] [place] [address] * EKG 12 Lead (03/15/2019 7:08 AM EDT) Ventricular rate 58 BPM MUSE SYSTEM Atrial Rate 58 BPM MUSE SYSTEM P-R Interval 140 ms MUSE SYSTEM QRS Duration 90 ms MUSE SYSTEM Q-T Interval 410 ms MUSE SYSTEM QTC Calculated (Bezet) 402 ms MUSE SYSTEM Calculated P Remsen 5 degrees MUSE SYSTEM Calculated R Remsen 24 degrees MUSE SYSTEM Calculated T Remsen 34 degrees MUSE SYSTEM INTERPRETATION Sinus bradycardia Otherwise normal ECG When compared with ECG of 14-MAR-2019 19:41, No significant change was found Confirmed by MD SOUMYA, JENNIFER ([id number]) on 03/15/2019 9:53:01 AM MUSE SYSTEM 03/15/2019 7:08 AM EDT 03/15/2019 9:53 AM EDT Siri Panchal Rachelle KRYSTINA ECG ORDERABLES MUSE SYSTEM * Differential, Automated (03/15/2019 5:01 AM EDT) Pathologist [facility] Neutrophil % 46.9 % [facility] Neutrophil Absolute 2.78 1.70 - 6.10 x10(3)/[facility] Lymph % 40.6 % [facility] Lymphocytes Abs 2.4 0.9 - 3.2 x10(3)/[facility] Monocyte % 7.7 % [facility] Monocyte Abs 0.5 0.3 - 0.9 x10(3)/[facility] Eos % 3.7 % [facility] Eosinophils Abs 0.2 0.0 - 0.4 x10(3)/[facility] Basophil % 0.8 % [facility] Baso Absolute 0.0 0.0 - 0.1 x10(3)/[facility] Immature Gran % 0.30 % [facility] Comment: Immature granulocytes(IG's)percentage and absolute count will include metamyelocytes, myelocytes, and promyelocytes. Blood smears from CBCs yielding IG's will be scanned manually for concordance. If this scan disagrees with the automated IG or if promyelocytes are noted, a manual differential will be performed. Immature Gran Absolute 0.02 0.00 - 0.04 x10(3)/[facility] Blood specimen (specimen) 03/15/2019 5:01 AM EDT 03/15/2019 5:12 AM EDT Narrative Resulting Agency Comment Spec In Lab Siri Bush ZIG ZAG STITCHER HEMATOLOGY ORDERAB LES [facility] [place] [address] * Hemogram (03/15/2019 5:01 AM EDT) White Blood Cell 5.9 4.0 - 9.5 x10(3)/[facility] Red Blood Cell 4.95 4.58 - 5.54 x10(6)/[facility] Hemoglobin 14.6 13.7 - 16.5 gm/dL [...] CENTER LABORATORY Platelet 156 145 - 357 x10(3)/[facility] RDW Standard Deviation 40.2 36.0 - 45.0 [facility] RDW coefficient of variation 12.5 11.4 - 13.8 % [facility] Mean Platelet Volume 10.4 7.6 - 12.9 [facility] NRBC% auto 0.0 % [facility] NRBC Absolute 0.000 0.000 - 0.000 x10(3)/[facility] Blood specimen (specimen) 03/15/2019 5:01 AM EDT 03/15/2019 5:12 AM EDT Narrative Resulting Agency Comment Spec In Lab Siri Bush ZIG ZAG STITCHER HEMATOLOGY ORDERAB LES [facility] [place] [address] * (ABNORMAL) BMP w/fasting Glucose (03/15/2019 5:01 [...] of Diabetes Mellitus, Position Statement from the [place] Diabetes [employer]. ??Diabetes Care, Volume 33, Supplement [...] of body mass or the acutely ill. [email or web address] eGFR 114 >=60 mL/min/1. 73 m?? [facility] Comment: The eGFR was calculated using the CKD-EPI equation. As with all creatinine based estimates of kidney function, eGFR values calculated with the CKD-EPI equation are not accurate in patients with acute kidney failure, extremes of body mass or the acutely ill. [email or web address]/[facility] [place] CITYnkf Blood specimen (specimen) 03/15/2019 5:01 AM EDT 03/15/2019 5:12 AM EDT Narrative Resulting Agency Comment Spec In Lab Siri Bush APRN CHEMISTRY ORDERABL ES [facility] [place] [address] * (ABNORMAL) Hemoglobin A1c (03/15/2019 5:01 AM [...] Mellitus, Diabetes Care 2013; 36: Suppl. 1, I57-09 Estimated Average Glucose 148 mg/dL [facility] [...] into estimated average glucose values. ??Diabetes Care 2008:31(8):2390-7834. Blood specimen (specimen) 03/15/2019 5:01 AM EDT 03/15/2019 5:12 AM EDT Narrative Resulting Agency Comment Spec In Lab Siri Bush APRN CHEMISTRY ORDERABL ES [facility] [place] [address] * Lipid Panel (03/15/2019 5:01 AM EDT) Cholesterol, Total 207 mg/dL [facility] Comment: Lower Risk: <200 mg/dL Average Risk: 200-239 mg/dL Higher Risk: >oj=286 mg/dL Triglyceride 256 mg/dL [facility] Comment: Average Risk/Lower Risk: <150 mg/dL Borderline High Risk: 150-199 mg/dL High Risk: 200-499 mg/dL Very High Risk: >ek=052 mg/dL HDL Cholesterol 28 mg/dL [facility] Comment: Males: ?? Higher Risk: <40 mg/dL Females: ?? HIgher Risk: <50 mg/dL LDL Cholesterol 128 mg/dL [facility] Comment: Lowest Risk: <100 mg/dL Lower Risk: 100-129 mg/dL Borderline High Risk: 130-159 mg/dL High Risk: 160-189 mg/dL Very High Risk: >ia=439 mg/dL Cholesterol/HDL Ratio 7.4 ratio [facility] Lipid Interpretation See Note [facility] Comment: Lipid management should be guided by a patient? s ASCVD risk, goals and preferences. ACC/AHA Guidelines recommend high intensity statin if clinical ASCVD or LDL greater than or equal to 190 mg/dL. http://[employer].com/NQE-JFB-Crxqzwopn Adults aged 40-75 with LDL 70-189 mg/dL should have their 10 year ASCVD risk estimated with the ACC/AHA ASCVD risk footwear sales representative http://tools.acc.org/FRHBY-Dxir-Vdlnaslyk/ Statin should be discussed if risk greater [...] ES [facility] [place] [address] * POCT Glucose (03/14/2019 7:50 PM EDT) Glucose, POC 123 65 - 199 mg/dL [facility] Comment: Supplemental ranges: <140 mg/dL before meals <180 mg/dL all other times of the day Blood specimen (specimen) 03/14/2019 7:50 PM EDT 03/14/2019 7:50 PM EDT Wale Mckeon MD POINT OF CARE TEST O RDERABLES Performing Organization Address [facility] Co de Phone Number [facility] [place] [address] * EKG 12 Lead (03/14/2019 7:41 PM EDT) [facility] Ventricular rate 59 BPM MUSE SYSTEM Atrial Rate 59 BPM MUSE SYSTEM P-R Interval 142 ms MUSE SYSTEM QRS Duration 80 ms MUSE SYSTEM Q-T Interval 396 ms MUSE SYSTEM QTC Calculated (Bezet) 392 ms MUSE SYSTEM Calculated P Remsen 40 degrees MUSE SYSTEM Calculated R Remsen 37 degrees MUSE SYSTEM Calculated T Remsen 46 degrees MUSE SYSTEM INTERPRETATION Sinus bradycardia Otherwise normal ECG When compared with ECG of 14-MAR-2019 01:06, No significant change was found Confirmed by MD SOUMYA, JENNIFER ([id number]) on 03/15/2019 9:52:58 AM MUSE SYSTEM 03/14/2019 7:41 PM EDT 03/15/2019 9:52 AM EDT Wale Mckeon MD ECG ORDERABLES Performing Organization Address [facility] de Phone Number MUSE SYSTEM * POCT Glucose (03/14/2019 4:21 PM EDT) [facility] Glucose, POC 128 65 - 199 mg/dL [facility] Comment: Supplemental ranges: <140 mg/dL before meals <180 mg/dL all other times of the day Blood specimen (specimen) 03/14/2019 4:21 PM EDT 03/14/2019 4:21 PM EDT Wale Mckeon MD POINT OF CARE TEST O RDERABLES Performing Organization Address [facility] Co de Phone Number [facility] [place] [address] * Troponin (03/14/2019 3:10 PM EDT) [facility] Troponin-T <0.01 0.00 - 0.00 ng/mL [facility] Comment: The 99th percentile for Troponin T is less than 0.01 ng/mL, any detectable cTnT concentration using this assay should be considered elevated. According to the third universal definition of myocardial infarction the following criteria with a clinical presentation consistent with acute myocardial ischemia meets the diagnosis for a myocardial infarction (NH). Detection of a rise and/or fall of cTnT, with at least one value greater than the 99th percentile (> or = 0.01) and with at least one of the following ?? Symptoms of ischemia ?? New or presumed new significant YL-zjsbama-H wave (ST-T) changes or new left bundle [...] additional sample may be indicated. Reference: Third Buford Definition of Myocardial Infarction. Journal of the [place] College of Cardiology 2012;60:1581-98 Blood specimen (specimen) 03/14/2019 3:10 PM EDT 03/14/2019 3:19 PM EDT Narrative Resulting Agency Comment Spec In Lab Wale Mckeon MD CHEMISTRY ORDERABLES Performing Organization Address City/State/[facility] Co de Phone Number [facility] [place] [address] * XR Chest PA or AP 1 [...] * POCT Glucose (03/14/2019 11:41 AM EDT) [facility] Signature Glucose, POC 96 65 - 199 mg/dL [facility] Comment: Supplemental ranges: <140 mg/dL before meals <180 mg/dL all other times of the day Blood specimen (specimen) 03/14/2019 11:41 AM EDT 03/14/2019 11:41 AM EDT Wale Mckeon MD POINT OF CARE TEST O RDERABLES [facility] [place] [address] * CARDIAC CATHETERIZATION (03/14/2019 10:55 AM EDT) Anatomical Region Laterality Modality Other Narrative 03/15/2019 4:29 PM EDT ?[facility] ? Cardiac Catheterization/Intervention Report ? Patient Name: Coe, Romeo A. ? Procedure Date: 03/14/2019 ? A #: [id number] ? Primary Physician: Lexus Gutiérrez ? Case #: [id number] ? File Name: [id number] ? Catheterization Order Number: [id number] ? [facility] ? Final Report [place], [place] ? Patient Name: ? Romeo Coe ? ID#: ?[id number] ? : ?1965 ? Procedure Date: ? [...] procedure was Urgent. The indication for ?the forestry laborer visit is ACS less than or equal [...] Procedure Note Lexus Gutiérrez MD - 08/13/2019 [facility] Cardiac Catheterization/Intervention Report Patient Name: Romeo Coe Procedure Date: 03/14/2019 A #: [id number] Primary Physician: Lexus Gutiérrez Case #: File Name: [id number] Catheterization Order Number: [id number] [facility] FinalReport [place], [place] Patient Name: Romeo Coe ID#:[id number] :1965 Procedure Date: March 14, 2019 Case [...] patient was designated as ASAClass III. The [facility] clinical frailty scale is 2: Well. Diagnostic Tests: Prior Coronary Angiography: Prior coronary angiography was performed on 09/13/2017 andshowed non-obstructive CAD. LV ejection fraction within 6 months is63%. Electrocardiography: EKG was assessed by ECG. EKG was Normal. Medications Prior to Procedure: ASA, Beta Agatha and Statin. Indications for Diagnostic Cath: The priority of the diagnostic procedure was Urgent. The indicationfor the forestry laborer visit is ACS less than or equal [...] meets the diagnosis for a myocardial infarction (NH). Detection of a rise and/or fall of cTnT, with at least one value greater than the 99th percentile (> or = 0.01) and with at least one of the following ?? Symptoms of ischemia ?? New or presumed new significant NB-bpkswuk-X wave (ST-T) changes or new left bundle [...] additional sample may be indicated. Reference: Third Buford Definition of Myocardial Infarction. Journal of the [place] College of Cardiology 2012;60:1581-98 Blood specimen (specimen) 03/14/2019 8:53 AM EDT 03/14/2019 9:06 AM EDT Narrative Resulting Agency Comment Spec In Lab Wale Mckeon MD CHEMISTRY ORDERABLES [facility] [place] [address] * (ABNORMAL) Differential, Automated (03/14/2019 8:53 AM EDT) Neutrophil % 33.7 % [facility] Neutrophil Absolute 2.11 1.70 - 6.10 x10(3)/ L [facility] Lymph % 52.4 % [facility] Lymphocytes Abs 3.3(H) 0.9 - 3.2 x10(3)/[facility] LABOR[facility] Monocyte % 7.6 % [facility] Monocyte Abs 0.5 0.3 - 0.9 x10(3)/ L [facility] Eos % 4.9 % [facility] Eosinophils Abs 0.3 0.0 - 0.4 x10(3)/[facility] LAB[facility] Basophil % 1.1 % [facility] Baso Absolute 0.1 0.0 [...] S [facility] [place] [address] * Hemogram (03/14/2019 8:53 AM EDT) White Blood Cell 6.3 4.0 - 9.5 x10(3)/[facility] LAB[facility]AT[facility] Red Blood Cell 5.11 4.58 - 5.54 x10(6)/[facility] Hemoglobin 14.9 13.7 - 16.5 gm/dL [...] CENTER LABORATORY Platelet 156 145 - 357 x10(3)/[facility] LABORATORY RDW Standard Deviation 40.3 36.0 - 45.0 [facility] LABORATORY RDW coefficient of variation 12.6 11.4 - 13.8 % [facility] Mean Platelet Volume 10.7 7.6 - 12.9 [facility] LABORATORY NRBC% auto 0.0 % [facility] NRBC Absolute 0.000 0.000 - 0.000 x10(3)/[facility] Blood specimen (specimen) 03/14/2019 8:53 AM EDT 03/14/2019 9:06 AM EDT Narrative Resulting Agency Comment Spec In Lab Ed Simpson MD HEMATOLOGY ORDERABLE S [facility] [place] [address] * Heparin (unfractionated) Level (03/14/2019 8:53 AM EDT) Pathologist [facility] UF Heparin 0.37 IU/mL [facility] Comment: Guidelines for therapeutic [...] HEMATOLOGY ORDERABLE S Performing Organization Address [facility]/State/[facility] Co de Phone Number [facility] [place] [address] * ECHO COMPLETE (03/14/2019 8:37 AM EDT) [facility] EF 63 HEARTLAB SYSTEM Anatomical Region Laterality Modality Other 03/14/2019 Narrative 03/14/2019 8:45 AM EDT Procedure: ?Transthoracic Echocardiogram Patient: ?LAQUITA DOHERTY Kiesha ? (Age): 1965(53y) Med Rec#: ? [id number] ?Sex: ?M ? Site Loc: ? [facility] [place] ?Ht / Wt: ??177(cm)/101(kg) Pt. Loc: ?Adult Floor ? BSA: ?2.18 Study Date: ?? 03/14/2019 ?Pt. Type: Inpatient Tape: ? Referring: Ed Simpson Reading: Christos Buchanan ([id number]) Oil Deliverer: Yessi Webb [facility] Diagnosis: *Unstable angina (I20.0) BP: ? 104/58 [...] E-wave Vmax ?0.6 ?m/sec ? MV deceleration lnlz319.5 ?msec ? MV A-wave Vmax ?0.4 ?m/sec [...] ? Mid-Inferior ?Normal ? Mid-Inferoseptal ?Normal ? [place]-Septal ? Normal ? [place]-Anterior ? Normal ? [place]-Lateral ?Normal ? [place]-Inferior ? Normal ? [place]-Tip ?Normal ? This report has been electronically signed by: Christos Buchanan M.D. ? 03/14/2019 08:45:08 Images reviewed and interpretation verified [facility] Cardiac Ultrasound Laboratory Procedure Note Christos Buchanan MD - 03/14/2019 Procedure: Transthoracic Echocardiogram Patient: LAQUITA Pop DOB(Age): 1965(53y) Med Rec#: [id number] Sex: M Site Loc: [facility] [place] [facility] Ht / Wt: 177(cm)/101(kg) Pt. Loc: Adult Floor BSA: 2.18 Study Date: 03/14/2019 Pt. Type: Inpatient Tape: Referring: Ed Simpson Reading: Christos Buchanan ([id number]) Oil Deliverer: Yessi Webb [facility] Diagnosis: *Unstable angina (I20.0) BP: 104/58 SUMMARY: [...] MV E-wave Vmax 0.6 m/sec MV deceleration ftua159.5 msec MV A-wave Vmax 0.4 m/sec MV [...] Normal Mid-Posterolateral Normal Mid-Inferior Normal Mid-Inferoseptal Normal [place]-Septal Normal [place]-Anterior Normal [place]-Lateral Normal [place]-Inferior Normal [place]-Tip Normal This report has been electronically signed by: Christos Buchanan M.D. 03/14/2019 08:45:08 Images reviewed and interpretation verified [facility] Cardiac Ultrasound Laboratory Ed Simpson [...] CARE TEST O RDERABLES Performing Organization Address [facility] Co de Phone Number [facility] [place] [address] * (ABNORMAL) Chloride (03/14/2019 3:28 AM EDT) Chloride 108(H) 98 - 107 mmol/L [facility] Blood specimen (specimen) 03/14/2019 3:28 AM EDT 03/14/2019 3:32 AM EDT Narrative Resulting Agency Comment Spec In Lab Wale Mckeon MD CHEMISTRY ORDERABLES Performing Organization Address [facility] Co de Phone Number [facility] [place] [address] * Troponin (03/14/2019 3:28 AM EDT) Troponin-T [...] meets the diagnosis for a myocardial infarction (NH). Detection of a rise and/or fall of cTnT, with at least one value greater than the 99th percentile (> or = 0.01) and with at least one of the following ?? Symptoms of ischemia ?? New or presumed new significant DK-awpihmz-Y wave (ST-T) changes or new left bundle [...] additional sample may be indicated. Reference: Third Buford Definition of Myocardial Infarction. Journal of the [place] College of Cardiology 2012;60:1581-98 Blood specimen (specimen) 03/14/2019 3:28 AM EDT 03/14/2019 3:32 AM EDT Narrative Resulting Agency Comment Spec In Lab Wale Mckeon MD CHEMISTRY ORDERABLES Performing Organization Address [facility] Co de Phone Number [facility] [place] [address] * Sodium (03/14/2019 3:28 AM EDT) Sodium 140 135 - 145 mmol/L [facility] Blood specimen (specimen) 03/14/2019 3:28 AM EDT 03/14/2019 3:32 AM EDT Narrative Resulting Agency Comment Spec In Lab Wale Mckeon MD CHEMISTRY ORDERABLES Performing Organization Address [facility] Phone Number [facility] [place] [address] * Potassium (03/14/2019 3:28 AM EDT) Potassium [...] Mckeon MD CHEMISTRY ORDERABLES Performing Organization Address [facility] Co de Phone Number [facility] [place] [address] * Heparin (unfractionated) Level (03/14/2019 2:46 AM EDT) UF Heparin 0.57 IU/mL [facility] Comment: Guidelines for therapeutic [...] HEMATOLOGY ORDERABLE S Performing Organization Address City/State/[facility] Co de Phone Number [facility] [place] [address] * (ABNORMAL) Differential, Automated (03/14/2019 1:50 AM EDT) Neutrophil % 38.9 % [facility] Neutrophil Absolute 3.10 1.70 - 6.10 x10(3)/mc L [facility] Lymph % 49.6 % [facility] Lymphocytes Abs 4.0(H) 0.9 - 3.2 x10(3)/mc L [facility] Monocyte % 6.3 % [facility] Monocyte Abs 0.5 0.3 - 0.9 x10(3)/mc L [facility] Eos % 4.1 % [facility] Eosinophils Abs 0.3 0.0 - 0.4 x10(3)/mc L [facility] Basophil % 0.8 % [facility] Baso Absolute 0.1 0.0 [...] HEMATOLOGY ORDERABLE S Performing Organization Address City/State/[facility] Co de Phone Number [facility] [place] [address] * Hemogram (03/14/2019 1:50 AM EDT) White Blood Cell 8.0 4.0 - 9.5 x10(3)/[facility] LABORATORY Red Blood Cell 4.98 4.58 - 5.54 x10(6)/[facility] LABORATORY Hemoglobin 15.0 13.7 - [...] CENTER LABORATORY Platelet 192 145 - 357 x10(3)/[facility] LABORATORY RDW Standard Deviation 39.9 36.0 - 45.0 [facility] LABORATORY RDW coefficient of variation 12.9 11.4 - 13.8 % [facility] Mean Platelet Volume 11.7 7.6 - 12.9 fL [facility] NRBC% auto 0.0 % [facility] NRBC Absolute 0.000 0.000 - 0.000 x10(3)/mcL [facility] Blood specimen (specimen) 03/14/2019 1:50 AM EDT 03/14/2019 2:04 AM EDT Narrative Resulting Agency Comment Spec In Lab Ed Simpson MD HEMATOLOGY ORDERABLE S Performing Organization Address [facility]/ZIP Co de Phone Number [facility] [place] [address] * pro-Brain Natriuretic Peptide (03/14/2019 1:50 AM EDT) NT-proBNP 12 <=125 pg/mL [facility] Blood specimen (specimen) 03/14/2019 1:50 AM EDT 03/14/2019 2:04 AM EDT Narrative Resulting Agency Comment Spec In Lab Ed Simpson MD CHEMISTRY ORDERABLES Performing Organization Address [facility] Co de Phone Number [facility] [place] [address] * Magnesium (03/14/2019 1:50 AM EDT) Pathologist [facility] Magnesium 0.81 0.69 - 1.07 mmol/L [facility] Blood specimen (specimen) 03/14/2019 1:50 AM EDT 03/14/2019 2:04 AM EDT Narrative Resulting Agency Comment Spec In Lab Ed Simpson MD CHEMISTRY ORDERABLES Performing Organization Address [facility] Co de Phone Number [facility] [place] [address] * (ABNORMAL) BMP w/fasting Glucose (03/14/2019 1:50 [...] of Diabetes Mellitus, Position Statement from the [place] Diabetes Association. ??Diabetes Care, Volume 33, Supplement 1, Aug 2009 Blood Urea Nitrogen 10 10 - 20 mg/dL [facility] Creatinine 1.00 0.80 - 1.50 mg/dL [facility] Sodium Not Perf 135 - 145 [facility] Potassium Not Perf 3.5 - 5.0 [facility] Comment: Called by: [facility], Read back by: Keeley Arias, Date/Time:03/14/19 [...] of body mass or the acutely ill. http://[employer]/[facility]MCnk[facility] eGFR 101 >=60 mL/min/1 .73 m?? [facility] Comment: The eGFR was calculated using the CKD-EPI equation. As with all creatinine based estimates of kidney function, eGFR values calculated with the CKD-EPI equation are not accurate in patients with acute kidney failure, extremes of body mass or the acutely ill. http://[employer]/[facility]nkf Blood specimen (specimen) 03/14/2019 1:50 AM EDT 03/14/2019 2:04 AM EDT Narrative Resulting Agency Comment Spec In Lab Ed Simpson MD CHEMISTRY ORDERABLES Performing Organization Address [facility] Co de Phone Number [facility] [place] [address] * EKG 12 Lead (03/14/2019 1:06 AM EDT) Ventricular rate 63 BPM MUSE SYSTEM Atrial Rate 63 BPM MUSE SYSTEM P-R Interval 146 ms MUSE SYSTEM QRS Duration 84 ms MUSE SYSTEM Q-T Interval 384 ms MUSE SYSTEM QTC Calculated (Bezet) 392 ms MUSE SYSTEM Calculated P Remsen 28 degrees MUSE SYSTEM Calculated R Remsen 21 degrees MUSE SYSTEM Calculated T Remsen 18 degrees MUSE SYSTEM INTERPRETATION Normal sinus rhythm Normal ECG When compared with ECG of 13-SEP-2017 07:49, No significant change was found Confirmed by MD NAZANIN, DEISY ([id number]) on 03/14/2019 9:49:11 AM MUSE SYSTEM 03/14/2019 1:06 AM EDT 03/14/2019 9:49 AM EDT Ed Simpson MD ECG ORDERABLES Performing Organization Address [facility] Co de Phone Number MUSE SYSTEM documented [...] - Provider: Admin Adt)2017 (Given - Provider: eKeley Arias RN) 2031 (Given - Provider: Beverly [...] RN) 0245 (Not Given - Provider: Beverly Chna RN - Reason: See comment - Comment: [...] Routine documented in this encounter Care Teams Contracting Analyst Relationship Specialty Start Date End Date Coni Lim MD [address] [place] [address] PCP - General 07/16/10 documented as of this encounter
--- OUTSIDE RECORDS SUMMARY | 2024-05-17 16:08 | XMS_ITS | Encounter Summary ---
Author Organization [facility] [place] [address] Care Team Providers Care Wildfire Prevention Specialist Name Role Phone Coni Lim MD Primary Care Provider [phone] Encounter Details Date Type Department Care Team (Late st Contact Info) Description 03/13/2019 External Results DH Patient Placement [facility] [place] [address] Social History Tobacco Use Types Packs/Day Years [...] on filedocumented in this encounter Care Teams Wildfire Prevention Specialist Relationship Specialty Start Date End Date Coni Lim MD [address] [place] [address] PCP - General 07/16/10 documented as of this encounter
--- OUTSIDE RECORDS SUMMARY | 2024-05-17 16:08 | XMS_ITS | Encounter Summary ---
Author Organization [facility] Address [place] [address] Care Team Providers Care Cyber Security Name Role Phone Coni Lim MD Primary Care Provider [phone] Encounter Details Date Type Department Care Team (Late st Contact Info) Description 03/13/2019 Telephone Cardiology at [address] [address] Syed Solorio MD [facility] [place] [address] Social History Tobacco Use Types Packs/Day Years [...] Initial Contact Date: 03/13/19 Initial contact time: [phone] Referring Provider: Heide Patient Location: [facility] Presenting Symptoms per OSH: Stable angina SOB [...] or examined this patient. Syed Solorio MD Manufacturing Technician PGY4 P: [phone] documented in this encounter Plan of Treatment Not on file documented as of this encounter Visit Diagnoses Not on filedocumented in this encounter Care Teams Cyber Security Relationship Specialty Start Date End Date Coni Lim MD [address] [place] [address] PCP - General 07/16/10 documented as of this encounter
--- OUTSIDE RECORDS SUMMARY | 2024-05-17 16:08 | XMS_ITS | Encounter Summary ---
Author Organization [facility] Address [facility] [place] [address] Care Team Providers Care Automatic Vulcanizing Lead Operator Name Role Phone Coni Lim MD Primary Care Provider Encounter Details Date Type Department Care Team (Late st Contact Info) Description 03/13/2019 11:10 PM EDT Ancillary Procedure Radiology Library at [facility] [place] [address] Wale Mckeon MD [facility] [place] [place] [address] Social History Tobacco Use Types Packs/Day Years [...] DX Chest (03/13/2019 11:09 PM EDT) Narrative [facility] - 03/13/2019 11:09 PM EDT This exam is auto-finalizing. It's purpose is for storage only. Wale Mckeon MD IMG FILM LIBRARY ORD ERABLES [facility] [place], [place] documented in this encounter Visit Diagnoses Not on filedocumented in this encounter Care Teams Automatic Vulcanizing Lead Operator Relationship Specialty Start Date End Date Coni Lim MD [address] [place] [address] PCP - General 07/16/10 documented as of this encounter
--- OUTSIDE RECORDS SUMMARY | 2024-05-17 16:08 | XMS_ITS | Encounter Summary ---
[place] [address] Care Team Providers Care Blanket Folder Name Role Phone Coni Lim MD Primary Care Provider Encounter Details Date Type Department Care Team (Late st Contact Info) Description 09/13/2018 11:00 AM EST Interpretation Only Cardiology at [address] [phone] Rafael Nieto Jr., MD [address] [place] [address] Chest pain, unspecified type Social History Tobacco [...] type documented in this encounter Care Teams Blanket Folder Relationship Specialty Start Date End Date Coni Lim MD [address] [place] [address] PCP - General 07/16/10 documented as of this encounter
--- OUTSIDE RECORDS SUMMARY | 2024-05-17 16:09 | XMS_ITS | Encounter Summary ---
Author Organization [facility] [address] Care Team Providers Care Gasoline Truck Crane Operator Name Role Phone Coni Lim MD Primary Care Provider [phone] Encounter Details Date Type Department Care Team (Late st Contact Info) Description 08/07/2017 Notes Only Cardiology at [address] [phone] Marianne Barker Social History Tobacco Use Types [...] on filedocumented in this encounter Care Teams Gasoline Truck Crane Operator Relationship Specialty Start Date End Date Coni Lim MD [address] [place] [address] PCP - General 07/16/10 documented as of this encounter
--- OUTSIDE RECORDS SUMMARY | 2024-05-17 16:09 | XMS_ITS | Encounter Summary ---
Author Organization [facility] [place] [address] Care Team Providers Care Sterile Processing Technologist Name Role Phone Coni Lim MD Primary Care Provider [phone] Encounter Details Date Type Department Care Team (Late st Contact Info) Description 11/26/2016 External Results [place] [address] Dwayne Gonzalez MD [address] [place] [id number] Social History Tobacco Use Types Packs/Day Years [...] on filedocumented in this encounter Care Teams Sterile Processing Technologist Relationship Specialty Start Date End Date Coni Lim MD [address] [place], [place] [address] PCP - General 07/16/10 documented as of this encounter
--- OUTSIDE RECORDS SUMMARY | 2024-05-17 16:09 | XMS_ITS | Encounter Summary ---
Author Organization [facility] Address [facility] [place] [address] Care Team Providers Care Site Project Manager Name Role Phone Coni Lim MD Primary Care Provider [phone] Reason for Visit * Reason Comments Chest Pain * Auth/Cert Specialty Diagnoses / Procedures Referred By Contac t Referred To Contact Diagnoses Unstable angina chest pain Referral ID Status Reason Start Date Expiration Date Visits Re quested Visits Authorized [id number] 1 1 Encounter Details Date Type Department Care Team (Late st Contact Info) Description 09/13/2017 9:25 AM EST - 09/13/2017 11:05 AM EST [place] [id number] Agusto Ball II, MD [facility] [place] [address] CARDIAC CATHETERIZATION Social History Tobacco Use Types [...] Romeo Coe Patient Age: 52 y.o. Language: Belizean Race: White Ethnicity: Not nor Admit date: [...] please contact your inpatient physician through the [facility] Manager Financial . Issues afterhours and on weekends will be handled by the paste mixing supervisor on-call. Discharge Diagnoses (Hospital Problems) and Secondary [...] restenosis addressed with LAD stent angioplasty at [facility] in January 2014 (ABSORB Stent) 75% [...] patient to come to the hospital today. Certified Marine Mechanic is Dr. Vyas. ?? Currently, he watches [...] lightheadedness/presyncopal symptoms. He will follow-up with his ditching machine engineer, Dr. Vyas, approximately 1 week as an [...] PF, Split 07/30/2013 ??? Influenza Vaccine (Novel) [id number], Injectable 05/24/2009 ??? Influenza Vaccine w/Preservative, Split [...] Discharge References/Attachments PCI (PERCUTANEOUS CORONARY INTERVENTION): POST-OP (EQUATORIAL GUINEAN) documented in this encounter Discharge Instructions [...] PCP PO QIANA Gerardo / ANTHONY CORDERO [address] 09/22/2017, 10:30 AM Florian Ling MD, Certified Marine Mechanic [place], [place] Your Inpatient Doctor(s) at [facility]: Christos Buchanan MD Daniel Storms, MD Sean Li, MD Jeffrey R Wunderlich, MD Your Primary Care Provider: Coni Lim MD [address] / [place] [address] For questions regarding this document or issues relating to this hospitalization on the Medical Service, please contact your inpatient physician through the [facility] Manager Financial . Issues afterhours and on weekends will be handled by the Hospitalist staff on-call. * Attachments The following attachments cannot be sent through Care Everywhere. * PCI (PERCUTANEOUS CORONARY INTERVENTION): POST-OP (EQUATORIAL GUINEAN) documented in this encounter Medications at [...] Pierson MD, PGY-1 Cardiology Service Pager # [phone] * Aida Dietrich MSW - 09/13/2017 2:23 [...] copy of notice made and given to patient/patient representative. Original notice to be scanned into [...] 09/12/2017 5:31 PM EST Patient [facility] via stretcher from ED s/p [...] Day 0 days ) Responsible Attending: Christos Buchaann MD PCP: Coni Lim MD PCP#: [phone] CC: Chest Pain Patient Active Problem List [...] restenosis addressed with LAD stent angioplasty at [facility] in January 2014 (ABSORB Stent) 75% [...] patient to come to the hospital today. Certified Marine Mechanic is Dr. Vyas. Currently, he watches his [...] of Onset ??? Myocardial Infarction Father 46 [place], CABG ??? Diabetes Mother ??? Hypertension Mother [...] son (age 18 months), daughter 11 in [place], [place]. Takes care of his mother who has dementia and he takes her to dialysis. is disabled. Has grown daughter who is 29 years old. 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 Physical Exam: Vitals: Most Recent Vitals: 09/12/17 [...] restenosis addressed with LAD stent angioplasty at [facility] in January 2014 (ABSORB Stent) 75% [...] two days ago. Patient has contacted his ditching machine engineer who advised to presentto the ED. He [...] reviewed the EKG: Sinus Rhythm, rate 82 [place], QRS and QTc within normal limits No [...] Emergency Medicine *This note was dictated with [employer] software. 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 I've been disabled for five years due to Fibromyalgia and Arthritis. Home Environment: Lives with his , Dasia in [place], [place]. Social & Family Supports/Community Resources: , Friends, neighbors Dasia Coe (Spouse) [address] [facility] [id number] (H) [phone] (M) Behavioral Health History: Per pt report, has Anxiety and Depression, (on Cymbalta and Wellbutrin). Substance Use/Abuse: Current every day smoker; 1-5 cigarettes a day. EtOH: None. Illicit Drug Use: Marijuana every day, medical use. Other Pertinent/Service Specific Information: None Health/Prescription Coverage: Primary Insurance: MEDICARE PART A & B Secondary Insurance: MEDICAID [place] Prescription Coverage: Yes, has Silver Script. Preferred Pharmacy: [id number] [place] - [address] ? [address] [facility] [place] [address] ? Not a 24 hour pharmacy; exact hours not known Other: None Primary Care Provider: Coni Lim MD [phone] Patient/Caregiver Goals of Treatment: To return home and to his normal activities. Potential Needs for Transition of Care: Rehab/SNF: Pt has never been a pt in a rehab setting. Home Health: [facility] in the past (after right [...] transition of care planning. TIMBO Barrett Pager: [phone] * Plan of Care - Keisha Mae [...] tele. Cont to monitor. PLAN MOVING FORWARD: skilled laborer echo INDIVIDUALIZED FALL PREVENTION INTERVENTIONS: Patient-specific [...] 1 month of chest pressure, told by ditching machine engineer that if he decided to be seen [...] METABOLIC PANEL Routine 09/14/2017 3:40 AM EST HELP DESK REP SCAN 09/14/2017 12:00 AM EST POCT GLUCOSE Routine 09/13/2017 7:50 PM EST POCT GLUCOSE Routine 09/13/2017 4:58 PM EST ECHO LMTD W/O CONTRAST W LMTD SPEC DOPP COLOR DOPP Routine 09/13/2017 2:44 PM EST Coronary artery disease, angina presence unspecified, unspecified vessel or lesion type, unspecified whether [place] or transplanted heart POCT GLUCOSE Routine 09/13/2017 11:32 AM EST CARDIAC CATHETERIZATION Routine 09/13/19 18 11:09 AM EST EKG 12-LEAD STAT 09/13/2017 7:49 AM EST Coronary artery disease, angina presence unspecified, unspecified vessel or lesion type, unspecified whether [place] or transplanted heart POCT GLUCOSE Routine 09/13/2017 [...] Routine 09/13/2017 6:32 AM EST CARDIAC ENZYMES ([facility]) STAT 09/13/2017 12:13 AM EST APTT STAT 09/13/2017 12:13 AM EST CARDIAC CATH SCAN 09/13/2017 12: 00 AM EST POCT GLUCOSE Routine 09/12/2017 9:14 PM EST CARDIAC ENZYMES ([facility]) STAT 09/12/2017 6:53 PM [...] * POCT Glucose (09/14/2017 7:32 AM EST) [facility] Glucose, POC 158 65 - 199 mg/dL [facility] Comment: Supplemental ranges: <140 mg/dL before meals <180 mg/dL all other times of the day Blood specimen (specimen) 09/14/2017 7:32 AM EST 09/14/2017 7:32 AM EST Christos Buchanan MD POINT OF CARE TEST O RDERABLES [facility] [place] [address] * Differential, Automated (09/14/2017 3:40 AM EST) [facility] Neutrophil % 51.2 % [facility] Neutrophil Absolute 4.61 1.70 - 6.10 x10(3)/mcL [facility] Lymph % 34.3 % [facility] Lymphocytes Abs 3.1 0.9 - 3.2 x10(3)/[facility] Monocyte % 8.6 % [facility] Monocyte Abs 0.8 0.3 - 0.9 x10(3)/[facility] Eos % 4.6 % [facility] Eosinophils Abs 0.4 0.0 - 0.4 x10(3)/[facility] Basophil % 0.9 % [facility] Baso Absolute 0.1 0.0 - 0.1 x10(3)/[facility] Immature Gran % 0.40 % [facility] Comment: Immature granulocytes(IG's)percentage and absolute count will include metamyelocytes, myelocytes, and promyelocytes. Blood smears from CBCs yielding IG's will be scanned manually for concordance. If this scan disagrees with the automated IG or if promyelocytes are noted, a manual differential will be performed. Immature Gran Absolute 0.04 0.00 - 0.04 x10(3)/[facility] Blood specimen (specimen) 09/14/2017 3:40 AM EST 09/14/2017 4:08 AM EST Narrative Resulting Agency Comment Spec In Lab Christos Buchanan MD HEMATOLOGY ORDERABLE S [facility] [place] [address] * Hemogram (09/14/2017 3:40 AM EST) White Blood Cell 9.0 4.0 - 9.5 x10(3)/[facility] Red Blood Cell 5.28 4.58 - 5.54 x10(6)/[facility] Hemoglobin 15.0 13.7 - 16.5 gm/dL [facility] Hematocrit 45.8 40.5 - 48.5 % [facility] Mean Cell Volume 86.7 82.9 - 93.1 fL [facility] Mean Cell Hemoglobin 28.4 27.5 - 32.[address] [facility] Mean Cell Hemoglobin Concentration 32.8 32.0 - 35.7 gm/dL [facility] Platelet 188 145 - 357 x10(3)/[facility] RDW Standard Deviation 43.6 36.0 - 45.[address] [facility] RDW coefficient of variation 13.7 11.4 - 13.8 % [facility] Mean Platelet Volume 10.4 7.6 - 12.[address] [facility] NRBC% auto 0.0 % [facility] NRBC Absolute 0.000 0.000 - 0.000 x10(3)/[facility] Blood specimen (specimen) 09/14/2017 3:40 AM EST 09/14/2017 4:08 AM EST Narrative Resulting Agency Comment Spec In Lab Christos Buchanan MD HEMATOLOGY ORDERABLE S Performing Organization Address [facility] Co de Phone Number [facility] [place] [address] * Prothrombin Time (09/14/2017 3:40 AM EST) Prothrombin Time 13.3 11.8 - 14.[address] [facility] International Normalization Ratio 1.0 0.9 - 1.1 [facility] Comment: An INR [...] Lab Christos Buchanan MD HEMATOLOGY ORDERABLE S [facility] [place] [address] * Magnesium (09/14/2017 3:40 AM EST) Magnesium 0.83 0.69 - 1.07 mmol/L [facility] Blood specimen (specimen) 09/14/2017 3:40 AM EST 09/14/2017 4:08 AM EST Narrative Resulting Agency Comment Spec In Lab Christos Buchanan MD CHEMISTRY ORDERABLES [facility] [place] [address] * Basic Metabolic Panel (non-fasting) (09/14/2017 3:40 AM EST) Glucose 108 65 - 199 mg/dL [facility] Comment:Diabetes: >=200 mg/d L plus symptoms Blood Urea Nitrogen 11 10 - 20 mg/dL [facility] Creatinine 1.05 0.80 - 1.50 mg/dL [facility] Sodium 143 135 - 145 mmol/L [facility] Potassium 4.0 3.5 - 5.0 mmol/L [facility] Comment: Please note: ??Patients with WBC >100,000 may have falsely elevated Potassium levels. ??For accurate Potassium quantification in these patients send serum separator tube (gold top) for subsequent determinations. ??Contact the Clinical Chemistry Laboratory if there are any questions. Chloride 106 98 - 107 mmol/L [facility] Carbon Dioxide 22 22 - 31 mmol/L [facility] Anion Gap 15 5 - 15 mmol/L [facility] Calcium 9.2 8.5 - 10.5 mg/dL [facility] Est Glomerular Filtration Rate >60 >=60 [facility] Comment: The reported eGFR should be multiplied by 1.2 for patients. The MDRD is not an appropriate measure of renal function for patients with body mass extremes or in patients with acute kidney failure. http://[employer]/DHnkdep http://[employer]/DHMCnkf Blood specimen (specimen) 09/14/2017 3:40 AM EST 09/14/2017 4:08 AM EST Narrative Resulting Agency Comment Spec In Lab Christos Buchanan MD CHEMISTRY ORDERABLES Performing Organization Address [facility] Co de Phone Number [facility] [place] [place] [address] * SCAN DOC: HELP DESK REP (09/14/2017 12:00 AM EST) Anatomical Region Laterality Modality Other Narrative 09/14/2017 12:00 AM EST Ordered by an unspecified provider. Scanning Provider MEDIA MGR SCAN EXT O RDR/RSLT * POCT Glucose (09/13/2017 7:50 PM EST) Glucose, POC 113 65 - 199 mg/dL [facility] Comment: Supplemental ranges: <140 mg/dL before meals <180 mg/dL all other times of the day Blood specimen (specimen) 09/13/2017 7:50 PM EST 09/13/2017 7:50 PM EST Christos Buchanan MD POINT OF CARE TEST O RDERABLES Performing Organization Address [facility] de Phone Number [facility] [place] [address] * POCT Glucose (09/13/2017 4:58 PM EST) Glucose, POC 138 65 - 199 mg/dL [facility] Comment: Supplemental ranges: <140 mg/dL before meals <180 mg/dL all other times of the day Blood specimen (specimen) 09/13/2017 4:58 PM EST 09/13/2017 4:58 PM EST Christos Buchanan MD POINT OF CARE TEST O RDERABLES Performing Organization Address [facility] Co de Phone Number [facility] [place] [place] [address] * ECHO LMTD W/O CONTRAST W LMTD SPEC DOPP COLOR DOPP (09/13/2017 2:44 PM EST) EF 65 HEART[facility] SYSTEM Anatomical Region Laterality Modality Other 09/13/2017 Narrative 09/13/2017 3:16 PM EST Procedure: ?Transthoracic Echocardiogram Patient: ?LAQUITA Pop ? (Age): 1965(52y) Med Rec#: ? [id number] ?Sex: ?M ? Site Loc: ? [facility] ?Ht / Wt: ??180.3(cm)/101.6 Pt. Loc: ?Adult Floor ? BSA: ?2.21 Study Date: ?? 09/13/2017 ?Pt. Type: Outpatient Tape: ? Referring: Christos Buchanan ([id number]) Reading: Christos Buchanan ([id number]) Cement Production Plant Operator: Meaghan Kim Diagnosis: *ICD-10-PCS Atherosclerotic heart disease of [place] coronary artery without angina pectoris (I25.10) BP: [...] E-wave Vmax ?0.6 ?m/sec ? MV deceleration baqs411.5 ?msec ? MV A-wave Vmax ?0.5 ?m/sec [...] ? Mid-Inferior ?Normal ? Mid-Inferoseptal ?Normal ? [place]-Septal ? Normal ? [place]-Anterior ? Normal ? [place]-Lateral ?Normal ? [place]-Inferior ? Normal ? [place]-Tip ?Normal ? This report has been electronically signed by: Christos Buchanan M.D. ? 09/13/2017 15:16:25 Images reviewed and interpretation verified [facility] Procedure Note Christos Buchanan MD - 09/13/2017 Procedure: Transthoracic Echocardiogram Patient: LAQUITA Pop DOB(Age): 1965(52y) Med Rec#: [id number] Sex: M Site Loc: [facility] Ht / Wt: 180.3(cm)/101.6 Pt. Loc: Adult Floor BSA: 2.21 Study Date: 09/13/2017 Pt. Type: Outpatient Tape: Referring: Christos Buchanan ([id number]) Reading: Christos Buchanan ([id number]) Cement Production Plant Operator: Meaghan Kim Diagnosis: *ICD-10-PCS Atherosclerotic heart disease of [place] coronary artery without angina pectoris (I25.10) BP: [...] MV E-wave Vmax 0.6 m/sec MV deceleration gyia747.5 msec MV A-wave Vmax 0.5 m/sec MV [...] Normal Mid-Posterolateral Normal Mid-Inferior Normal Mid-Inferoseptal Normal [place]-Septal Normal [place]-Anterior Normal [place]-Lateral Normal [place]-Inferior Normal [place]-Tip Normal This report has been electronically signed by: Christos Buchanan M.D. 09/13/2017 15:16:25 Images reviewed and interpretation verified [facility] Christos Buchanan MD ECHO ORDERABLES * POCT Glucose (09/13/2017 11:32 AM EST) Glucose, POC 104 65 - 199 mg/dL [facility] Comment: Supplemental ranges: <140 mg/dL before meals <180 mg/dL all other times of the day Blood specimen (specimen) 09/13/2017 11:32 AM EST 09/13/2017 11:32 AM EST Christos Buchanan MD POINT OF CARE TEST O RDERABLES Performing Organization Address City/State/[facility] Co de Phone Number [facility] [place] [place] [address] * CARDIAC CATHETERIZATION (09/13/2017 11:09 AM EST) Anatomical Region Laterality Modality Other Narrative 09/13/2017 11:33 AM EST ?[facility] ? Cardiac Catheterization/Intervention Report ? Patient Name: Romeo Coe. ? Procedure Date: 09/13/2017 ? A #: [id number] ? Primary Physician: Quinn, Agusto W ? Case #: [id number] ? File Name: [id number] ? Catheterization Order Number: [id number] ? [facility] ? Final Report [place], [place] ? Patient Name: ? Romeo A. Coe ? ID#: ?[id number] ? : ?1965 ? Procedure Date: ? [...] presented with: unstable angina (w/i 60 days). [place] ?Cardiovascular Society angina class was IV. This [...] Note Agusto Ball II, MD - 09/14/2017 [facility] Cardiac Catheterization/Intervention Report Patient Name: Romeo CoeNatalie Procedure Date: 09/13/2017 A #: [id number] Primary Physician: Agusto Ball Case #: [id number] File Name: [id number] Catheterization Order Number: [id number] [facility] FinalReport [place], [place] Patient Name: Romeo Coe ID#:[id number] :1965 Procedure Date: September 13, 2017 Case [...] presented with: unstable angina (w/i 60 days). [place] Cardiovascular Society angina class was IV. This [...] 12 Lead (09/13/2017 7:49 AM EST) Pathologist [facility] Ventricular rate 72 BPM MUSE SYSTEM Atrial Rate 72 BPM MUSE SYSTEM P-R Interval 138 ms MUSE SYSTEM QRS Duration 86 ms MUSE SYSTEM Q-T Interval 380 ms MUSE SYSTEM QTC Calculated (Bezet) 416 ms MUSE SYSTEM Calculated P [place] 5 degrees MUSE SYSTEM Calculated R [place] 23 degrees MUSE SYSTEM Calculated T [place] 28 degrees MUSE SYSTEM INTERPRETATION Normal sinus rhythm Normal ECG When compared with ECG of 12-SEP-2017 12:19, No significant change was found Confirmed by MD Segundo, Panda Leyva ([id number]) on 09/14/2017 9:09:15 AM MUSE SYSTEM 09/13/2017 7:49 AM EST 09/14/2017 9:09 AM EST Christos Buchanan MD ECG ORDERABLES MUSE SYSTEM * POCT Glucose (09/13/2017 7:24 AM EST) Pathologist [facility] Glucose, POC 152 65 - 199 mg/dL [facility] Comment: Supplemental ranges: <140 mg/dL before meals <180 mg/dL all other times of the day Blood specimen (specimen) 09/13/2017 7:24 AM EST 09/13/2017 7:24 AM EST Christos Buchanan MD POINT OF CARE TEST O RDERABLES [facility] [place] [address] * (ABNORMAL) BMP w/fasting Glucose (09/13/2017 6:32 AM EST) Glucose Fasting 157(H) 65 - 99 mg/dL [facility] [...] of Diabetes Mellitus, Position Statement from the [place] [employer]. ??Diabetes Care, Volume 33, Supplement 1, Aug 2009 Blood Urea Nitrogen 11 10 - 20 mg/dL [facility] Creatinine 0.99 0.80 - 1.50 mg/dL [facility] Sodium 142 135 - 145 mmol/L [facility] Potassium 3.7 3.5 - 5.0 mmol/L [facility] [...] 15 mmol/L [facility] Calcium 9.4 8.5 - 10.5 mg/dL [facility] Est Glomerular Filtration Rate >60 >=60 [facility] Comment: The reported eGFR should be multiplied by 1.2 for patients. The MDRD is not an appropriate measure of renal function for patients with body mass extremes or in patients with acute kidney failure. http://[employer]/DHnkdep http://[employer]/[facility] Blood specimen (specimen) 09/13/2017 6:32 AM EST 09/13/2017 6:41 AM EST Narrative Resulting Agency Comment Spec In Lab Christos Buchanan MD CHEMISTRY ORDERABLES Performing Organization Address [facility] Phone Number [facility] [place] [address] * (ABNORMAL) APTT (09/13/2017 6:32 AM EST) Partial Thromboplastin Time 113(H) 25 - [address] [facility] Comment: The recommended therapeutic range for full dose, unfractionated heparin at [facility] is 80 ? 114 seconds. The use of the anti-Xa (heparin) level rather than the PTT is recommended for monitoring anticoagulation intensity in critically ill patients receiving unfractionated heparin by continuous IV infusion. Blood specimen (specimen) 09/13/2017 6:32 AM EST 09/13/2017 6:41 AM EST Narrative Resulting Agency Comment Spec In Lab Christos Buchanan MD HEMATOLOGY ORDERABLE S Performing Organization Address [facility] Co de Phone Number [facility] [place] [address] * Differential, Automated (09/13/2017 6:32 AM EST) Neutrophil % 64.9 % [facility] Neutrophil Absolute 5.94 1.70 - 6.10 x10(3)/mcL [facility] Lymph % 24.7 % [facility] Lymphocytes Abs 2.3 0.9 - 3.2 x10(3)/[facility] Monocyte % 5.3 % [facility] Monocyte Abs 0.5 0.3 - 0.9 x10(3)/[facility] Eos % 4.0 % [facility] Eosinophils Abs 0.4 0.0 - 0.4 x10(3)/[facility] Basophil % 0.7 % [facility] Baso Absolute 0.1 0.0 - 0.1 x10(3)/[facility] Immature Gran % 0.40 % [facility] Comment: Immature granulocytes(IG's)percentage and absolute count will include metamyelocytes, myelocytes, and promyelocytes. Blood smears from CBCs yielding IG's will be scanned manually for concordance. If this scan disagrees with the automated IG or if promyelocytes are noted, a manual differential will be performed. Immature Gran Absolute 0.04 0.00 - 0.04 x10(3)/[facility] Blood specimen (specimen) 09/13/2017 6:32 AM EST 09/13/2017 6:41 AM EST Narrative Resulting Agency Comment Spec In Lab Christos Buchanan MD HEMATOLOGY ORDERABLE S [facility] [place] [address] * Hemogram (09/13/2017 6:32 AM EST) White Blood Cell 9.2 4.0 - 9.5 x10(3)/[facility] Red Blood Cell 5.29 4.58 - 5.54 x10(6)/[facility] Hemoglobin 15.4 13.7 - 16.5 gm/dL [facility] Hematocrit 44.9 40.5 - 48.5 % [facility] Mean Cell Volume 84.9 82.9 - 93.[address] [facility] Mean Cell Hemoglobin 29.1 27.5 - 32.[address] [facility] Mean Cell Hemoglobin Concentration 34.3 32.0 - 35.7 gm/dL [facility] Platelet 186 145 - 357 x10(3)/[facility] RDW Standard Deviation 42.9 36.0 - 45.[address] [facility] RDW coefficient of variation 13.8 11.4 - 13.8 % [facility] Mean Platelet Volume 10.3 7.6 - 12.[address] [facility] NRBC% auto 0.0 % [facility] NRBC Absolute 0.000 0.000 - 0.000 x10(3)/[facility] Blood specimen (specimen) 09/13/2017 6:32 AM EST 09/13/2017 6:41 AM EST Narrative Resulting Agency Comment Spec In Lab Christos Buchanan MD HEMATOLOGY ORDERABLE S Performing Organization Address [facility] Co de Phone Number [facility] [place] [id number] * Blood culture (09/13/2017 6:32 AM EST) Blood Culture No growth at [address] [facility] Blood specimen (specimen) 09/13/2017 6:32 AM EST 09/13/2017 7:17 AM EST Comment:L FOREARM Narrative Resulting Agency Comment Spec In Lab Christos Buchanan MD MICROBIOLOGY - BLOOD ORDERABLES Performing Organization Address [facility] Co de Phone Number [facility] [place] [place] [address] * Prothrombin Time (09/13/2017 6:32 AM EST) Prothrombin Time 13.8 11.8 - 14.[address] [facility] International Normalization Ratio 1.1 0.9 - 1.1 [facility] Comment: An INR [...] MD HEMATOLOGY ORDERABLE S Performing Organization Address City/[facility]/ZIP Co de Phone Number [facility] [place] [address] * Magnesium (09/13/2017 6:32 AM EST) Magnesium 0.84 0.69 - 1.07 mmol/L [facility] Blood specimen (specimen) 09/13/2017 6:32 AM EST 09/13/2017 6:41 AM EST Narrative Resulting Agency Comment Spec In Lab Christos Buchanan MD CHEMISTRY ORDERABLES Performing Organization Address [facility] Co de Phone Number [facility] [place] [address] * Triglyceride (09/13/2017 6:32 AM EST) Triglyceride 153 <=199 mg/dL [facility] Blood specimen (specimen) 09/13/2017 6:32 AM EST 09/13/2017 6:41 AM EST Narrative Resulting Agency Comment Spec In Lab Christos Buchanan MD CHEMISTRY ORDERABLES Performing Organization Address [facility] Co de Phone Number [facility] [place] [address] * HDL/Cholesterol Profile (09/13/2017 6:32 AM EST) Cholesterol, Total 162 <=239 mg/dL [facility] HDL Cholesterol 44 >=40 mg/dL [facility] Cholesterol/HDL Ratio 3.[address] [facility] Chol/HDL Interpretation See Note [facility] Comment: Lipid management should be guided by a patient? s ASCVD risk, goals and preferences. ACC/AHA Guidelines recommend high intensity statin if clinical ASCVD or LDL greater than or equal to 190 mg/dL. http://[employer].com/SDU-PIN-Whganslfs Measure LDL if Total Cholesterol minus HDL Cholesterol is greater than 220 mg/dL. Adults aged 40-75 with LDL 70-189 mg/dL should have their 10 year ASCVD risk estimated with the ACC/AHA ASCVD risk bottom steep tender http://tools.acc.org/KROBA-Atoa-Fcgvvoyno/ Statin should be discussed if risk greater [...] Buchanan MD CHEMISTRY ORDERABLES Performing Organization Address [facility] Co de Phone Number [facility] [place] [address] * LDL Cholesterol, Direct (09/13/2017 6:32 AM EST) LDL Cholesterol, Direct 102 <=190 mg/dL [facility] Blood specimen (specimen) 09/13/2017 6:32 AM EST 09/13/2017 6:41 AM EST Narrative Resulting Agency Comment Spec In Lab Christos Buchanan MD CHEMISTRY ORDERABLES Performing Organization Address [facility] Co de Phone Number [facility] [place] [address] * (ABNORMAL) Hemoglobin A1c (09/13/2017 6:32 AM EST) Hemoglobin A1c 6.4(H) 4.3 - 5.6 % [facility] [...] 1, S67-74 Estimated Average Glucose 137 mg/dL [facility] Comment: eAG [...] into estimated average glucose values. ??Diabetes Care 2008:31(8):8379-4029. Blood specimen (specimen) 09/13/2017 6:32 AM EST 09/13/2017 6:41 AM EST Narrative Resulting Agency Comment Spec In Lab Christos Buchanan MD CHEMISTRY ORDERABLES [facility] [place] [address] * pro-Brain Natriuretic Peptide (09/13/2017 6:32 AM EST) NT-proBNP 15 <=125 pg/mL [facility] Blood specimen (specimen) 09/13/2017 6:32 AM EST 09/13/2017 6:41 AM EST Narrative Resulting Agency Comment Spec In Lab Christos Buchanan MD CHEMISTRY ORDERABLES Performing Organization Address [facility] de Phone Number [facility] [place] [address] * (ABNORMAL) APTT (09/13/2017 12:13 AM EST) Pathologist [facility] Partial Thromboplastin Time 50(H) 25 - [address] [facility] Comment: The recommended therapeutic range for full dose, unfractionated heparin at [facility] is 80 ? 114 seconds. The use of the anti-Xa (heparin) level rather than the PTT is recommended for monitoring anticoagulation intensity in critically ill patients receiving unfractionated heparin by continuous IV infusion. Blood specimen (specimen) 09/13/2017 12:13 AM EST 09/13/2017 12:42 AM EST Narrative Resulting Agency Comment Spec In Lab Christos Buchanan MD HEMATOLOGY ORDERABLE S Performing Organization Address [facility] de Phone Number [facility] [place] [address] * Cardiac Enzymes (LEB/CGP) (09/13/2017 12:13 AM EST) Troponin-T <0.01 0.00 - 0.00 ng/mL [facility] Comment: The 99th percentile for Troponin T is less than 0.01 ng/mL, any detectable cTnT concentration using this assay should be considered elevated. According to the third universal definition of myocardial infarction the following criteria with a clinical presentation consistent with acute myocardial ischemia meets the diagnosis for a myocardial infarction (OK). Detection of a rise and/or fall of cTnT, with at least one value greater than the 99th percentile (> or = 0.01) and with at least one of the following ?? Symptoms of ischemia ?? New or presumed new significant HN-ptngykm-Q wave (ST-T) changes or new left bundle [...] additional sample may be indicated. Reference: Third [place] Definition of Myocardial Infarction. Journal of the [place] College [employer] 2012;60:1581-98 Creatine Kinase 55 0 - 200 unit/L [facility] Blood specimen (specimen) 09/13/2017 12:13 AM EST 09/13/2017 12:42 AM EST Narrative Resulting Agency Comment Spec In Lab Christos Buchanan MD CHEMISTRY ORDERABLES Performing Organization Address [facility] Co de Phone Number [facility] [place] [address] * SCAN DOC: CARDIAC CATH (09/13/2017 12:00 [...] O RDERABLES Performing Organization Address [facility] Co de Phone Number [facility] [place] [address] * Cardiac Enzymes (LEB/CGP) (09/12/2017 6:53 PM EST) Troponin-T <0.01 0.00 - 0.00 ng/mL [facility] Comment: The 99th percentile for Troponin T is less than 0.01 ng/mL, any detectable cTnT concentration using this assay should be considered elevated. According to the third universal definition of myocardial infarction the following criteria with a clinical presentation consistent with acute myocardial ischemia meets the diagnosis for a myocardial infarction (OK). Detection of a rise and/or fall of cTnT, with at least one value greater than the 99th percentile (> or = 0.01) and with at least one of the following ?? Symptoms of ischemia ?? New or presumed new significant UJ-qsgrodr-D wave (ST-T) changes or new left bundle [...] additional sample may be indicated. Reference: Third [place] Definition of Myocardial Infarction. Journal of the [place] College of Cardiology 2012;60:1581-98 Creatine Kinase 57 0 - 200 unit/L [facility] Blood specimen (specimen) 09/12/2017 6:53 PM EST 09/12/2017 7:02 PM EST Narrative Resulting Agency Comment Spec In Lab Christos Buchanan MD CHEMISTRY ORDERABLES Performing Organization Address City/State/[facility] Co de Phone Number [facility] [place] [address] * XR Chest PA & Lateral (Generic) [...] Prothrombin Time 13.7 11.8 - 14.[address] [facility] International Normalization Ratio 1.1 0.9 - 1.1 [facility] Comment: An INR [...] Lab Alejandro Blair MD HEMATOLOGY ORDERAB LES [facility] [place] [address] * APTT (09/12/2017 1:29 PM EST) Partial Thromboplastin Time 28 25 - [address] [facility] Comment: The recommended therapeutic range for full dose, unfractionated heparin at [facility] is 80 ? 114 [...] MD HEMATOLOGY ORDERAB LES Performing Organization Address [facility] Co de Phone Number [facility] [place] [place] [address] * pro-Brain Natriuretic Peptide (09/12/2017 1:29 PM EST) NT-proBNP 20 <=125 pg/mL [facility] Blood specimen (specimen) Venous Draw / Unknown 09/12/2017 1:29 PM EST 09/12/2017 1:35 PM EST Narrative Resulting Agency Comment Spec In Lab Alejandro Blair MD CHEMISTRY ORDERABL ES Performing Organization Address [facility] Co de Phone Number [facility] [place] [address] * Gold Tube HOLD (09/12/2017 1:29 PM EST) Gold Hold Sample in lab. [facility] Blood specimen (specimen) Venous Draw / Unknown 09/12/2017 1:29 PM EST 09/12/2017 1:34 PM EST Alejandro Blair MD CHEMISTRY ORDERABL ES Performing Organization Address [facility] Co de Phone Number [facility] [place] [address] * Blue Tube HOLD (09/12/2017 1:29 PM EST) Blue Hold Sample in lab. [facility] Blood specimen (specimen) Venous Draw / Unknown 09/12/2017 1:29 PM EST 09/12/2017 1:34 PM EST Alejandro Blair MD HEMATOLOGY ORDERAB LES Performing Organization Address City/[facility]/ZIP Co de Phone Number [facility] [place] [address] * Differential, Automated (09/12/2017 1:29 PM EST) Neutrophil % 57.0 % [facility] Neutrophil Absolute 5.07 1.70 - 6.10 x10(3)/[facility] Lymph % 29.7 % [facility] Lymphocytes Abs 2.6 0.9 - 3.2 x10(3)/[facility] Monocyte % 7.8 % [facility] Monocyte Abs 0.7 0.3 - 0.9 x10(3)/[facility] Eos % 4.2 % [facility] Eosinophils Abs 0.4 0.0 - 0.4 x10(3)/[facility] Basophil % 0.8 % [facility] Baso Absolute 0.1 0.0 - 0.1 x10(3)/[facility] Immature Gran % 0.50 % [facility] Comment: Immature granulocytes(IG's)percentage and absolute count will include metamyelocytes, myelocytes, and promyelocytes. Blood smears from CBCs yielding IG's will be scanned manually for concordance. If this scan disagrees with the automated IG or if promyelocytes are noted, a manual differential will be performed. Immature Gran Absolute 0.04 0.00 - 0.04 x10(3)/[facility] Blood specimen (specimen) 09/12/2017 1:29 PM EST 09/12/2017 1:34 PM EST Narrative Resulting Agency Comment Spec In Lab Alejandro Blair MD HEMATOLOGY ORDERAB LES [facility] [place] [address] * Hemogram (09/12/2017 1:29 PM EST) [facility] White Blood Cell 8.9 4.0 - 9.5 x10(3)/[facility] Red Blood Cell 5.07 4.58 - 5.54 x10(6)/[facility] Hemoglobin 14.8 13.7 - 16.5 gm/dL [facility] Hematocrit 43.3 40.5 - 48.5 % [facility] Mean Cell Volume 85.4 82.9 - 93.[address] [facility] Mean Cell Hemoglobin 29.2 27.5 - 32.[address] [facility] Mean Cell Hemoglobin Concentration 34.2 32.0 - 35.7 gm/dL [facility] Platelet 208 145 - 357 x10(3)/[facility] RDW Standard Deviation 42.5 36.0 - 45.0 [facility] RDW coefficient of variation 13.7 11.4 - 13.8 % [facility] Mean Platelet Volume 10.4 7.6 - 12.9 [facility] NRBC% auto 0.0 % [facility] NRBC Absolute 0.000 0.000 - 0.000 x10(3)/[facility] Blood specimen (specimen) 09/12/2017 1:29 PM EST 09/12/2017 1:34 PM EST Narrative Resulting Agency Comment Spec In Lab Alejandro Blair MD HEMATOLOGY ORDERAB LES [facility] [place] [address] * (ABNORMAL) Basic Metabolic Panel (non-fasting) (09/12/2017 1:29 PM EST) [facility] Glucose 113 65 - 199 mg/dL [facility] Comment:Diabetes: >=200 mg/d L plus symptoms Blood Urea Nitrogen 10 10 - 20 mg/dL [facility] Creatinine 0.96 0.80 - 1.50 mg/dL [facility] Sodium 143 135 - 145 mmol/L [facility] [...] mmol/L [facility] Anion Gap 17(H) 5 - 15 mmol/L [facility] Calcium 9.2 8.5 - 10.5 mg/dL [facility] Est Glomerular Filtration Rate >60 >=60 [facility] Comment: The reported eGFR should be multiplied by 1.2 for patients. The MDRD is not an appropriate measure of renal function for patients with body mass extremes or in patients with acute kidney failure. http://[employer]/DHnkdep http://[employer]/DHMCnkf Blood specimen (specimen) 09/12/2017 1:29 PM EST 09/12/2017 1:34 PM EST Narrative Resulting Agency Comment Spec In Lab Alejandro Blair MD CHEMISTRY ORDERABL ES [facility] [place] [address] * Cardiac Enzymes (LEB/CGP) (09/12/2017 1:29 PM EST) Troponin-T <0.01 0.00 - 0.00 ng/mL [facility] Comment: The 99th percentile for Troponin T is less than 0.01 ng/mL, any detectable cTnT concentration using this assay should be considered elevated. According to the third universal definition of myocardial infarction the following criteria with a clinical presentation consistent with acute myocardial ischemia meets the diagnosis for a myocardial infarction (OK). Detection of a rise and/or fall of cTnT, with at least one value greater than the 99th percentile (> or = 0.01) and with at least one of the following ?? Symptoms of ischemia ?? New or presumed new significant HY-wlanoag-R wave (ST-T) changes or new left bundle [...] additional sample may be indicated. Reference: Third [place] Definition of Myocardial Infarction. Journal of the [place] College [employer]iology 2012;60:1581-98 Creatine Kinase 65 0 - 200 unit/L [facility] Blood specimen (specimen) 09/12/2017 1:29 PM EST 09/12/2017 1:34 PM EST Narrative Resulting Agency Comment Spec In Lab Alejandro Blair MD CHEMISTRY ORDERABL ES [facility] [place] [address] * EKG 12 Lead (09/12/2017 12:19 PM EST) Ventricular rate 82 BPM MUSE SYSTEM Atrial Rate 82 BPM MUSE SYSTEM P-R Interval 136 ms MUSE SYSTEM QRS Duration 80 ms MUSE SYSTEM Q-T Interval 358 ms MUSE SYSTEM QTC Calculated (Bezet) 418 ms MUSE SYSTEM Calculated P [place] 13 degrees MUSE SYSTEM Calculated R [place] 33 degrees MUSE SYSTEM Calculated T [place] 34 degrees MUSE SYSTEM INTERPRETATION Normal sinus [...] PRN, Starting on 09/13/17 at 1014, Until Mather 09/13/17 at 1015, Cath (Intra-Procedure), Routine Given 09/13/2017 10:14 AM EST 25 mcg fentaNYL 50 mcg/mL multi-dose injection ONCE PRN, Starting on 09/13/17 at 1028, Until 09/13/17 at 1037, Intra-Operative (Intra-Procedure), Routine Given 09/13/2017 10:28 AM EST 25 mcg fentaNYL 50 mcg/mL multi-dose injection ONCE PRN, Starting on 09/13/17 at 1105, Until Mather 09/13/17 at 1107, Cath (Intra-Procedure), Routine Given 09/13/2017 11:05 AM EST 25 mcg gabapentin (NEURONTIN) capsule 600 mg 600 mg, Oral, 2 TIMES DAILY BEFORE BREAKFAST AND LUNCH, First dose (after last modification) on Mather 09/13/17 at 0730, Until Discontinued, Routine Given [...] - Reason: Transfer to a Procedural area)1134 ([facility] Unhold - Provider: Admin Adt) 0830 (Given - Provider: Rupal Munguia RN) buPROPion (WELLBUTRIN SR or ZYBAN) SR tablet 150 mg 150 mg, Oral, 2 TIMES DAILY, First dose on 09/12/17 at 2100, Until Discontinued, DO NOT CRUSH OR OPEN, Routine 2030 (Given - Provider: Keisha Mae RN) 0850 (Given - Provider: Rupal Munguia RN)1002 ([facility] Hold - Provider: Admin Adt - Reason: Transfer to a Procedural area)1134 ([facility] Unhold - Provider: Admin Adt)2019 (Given - Provider: Keisha Mae RN) 0830 (Given - Provider: Rupal Munguia RN) clopidogrel (PLAVIX) tablet 75 mg 75 mg, Oral, DAILY, First dose on 09/13/17 at 0900, Until Discontinued, Routine 0850 (Given - Provider: Rupal Munguia RN)1002 ([facility] Hold - Provider: Admin Adt - Reason: Transfer to a Procedural area)1134 ([facility] Unhold - Provider: Admin Adt) 0830 (Given - Provider: Rupal Munguia RN) DULoxetine (CYMBALTA) capsule 60 mg 60 mg, Oral, 2 TIMES DAILY, First dose on 09/12/17 at 2100, Until Discontinued, Routine 2030 (Given - Provider: Keisha Mae RN) 0851 (Given - Provider: Rupal Munguia RN)1002 ([facility] Hold - Provider: Admin Adt - Reason: Transfer to a Procedural area)1134 ([facility] Unhold - Provider: Admin Adt)2020 (Given - Provider: Keisha Mae RN) 0830 (Given - Provider: Rupal Munguia RN) gabapentin (NEURONTIN) capsule 600 mg 600 mg, Oral, 2 TIMES DAILY BEFORE BREAKFAST AND LUNCH, First dose (after last modification) on 09/13/17 at 0730, Until Discontinued, Routine 0800 (Given - Provider: Rupal Munguia RN)1002 ([facility] Hold - Provider: Admin Adt - Reason: Transfer to a Procedural area)1130 (Automatically Held - Provider: Admin Adt)1134 ([facility] Unhold - Provider: Admin Adt)1323 (Given - Provider: Rupal Munguia RN - Comment: late lunch) 0800 (Given - Provider: Rupal Munguia RN) gabapentin (NEURONTIN) capsule 900 mg 900 mg, Oral, NIGHTLY, First dose on 09/12/17 at 2100, Until Discontinued, Routine 2030 (Given - Provider: Keisha Mae RN) 1002 ([facility] Hold - Provider: Admin Adt - Reason: Transfer to a Procedural area)1134 ([facility] Unhold - [...] - Reason: Transfer to a Procedural area)1134 ([facility] Unhold - [...] 0853 (Given - Provider: Rupal Munguia, VERO)1002 ([facility] Hold - Provider: Admin Adt - Reason: Transfer to a Procedural area)1134 ([facility] Unhold - Provider: Admin Adt) 0831 (Given - Provider: Rupal Munguia, VERO) meTOPROLOL tartrate (LOPRESSOR) tablet 50 mg 50 mg, Oral, 2 TIMES DAILY, First dose on 09/12/17 at 2100, Until Discontinued, Routine 2030 (Given - Provider: Keisha Mae, VERO) 0852 (Given - Provider: Rupal Munguia, VERO)1002 ([facility] Hold - Provider: Admin Adt - Reason: Transfer to a Procedural area)1134 ([facility] Unhold - [...] Rupal Munguia RN - Reason: Patient/family refused)1002 ([facility] Hold - Provider: Admin Adt - Reason: Transfer to a Procedural area)1134 ([facility] Unhold - [...] - Reason: Transfer to a Procedural area)1134 ([facility] Unhold - [...] 0852 (Given - Provider: Rupal Munguia RN)1002 ([facility] Hold - Provider: Admin Adt - Reason: Transfer to a Procedural area)1134 ([facility] Unhold - Provider: Admin Adt)2020 (Given - Provider: Keisha Mae, VERO) 0830 (Given - Provider: Rupal Munguia, VERO) pramipexole (MIRAPEX) tablet 0.5 mg 0.5 mg, Oral, NIGHTLY, First dose on 09/12/17 at 2100, Until Discontinued, Routine 2030 (Given - Provider: Keisha Mae RN) 1002 ([facility] Hold - Provider: Admin Adt - Reason: Transfer to a Procedural area)1134 ([facility] Unhold - Provider: Admin Adt)2019 (Given - Provider: Keisha Mae RN) rosuvastatin (CRESTOR) tablet 20 mg 20 mg, Oral, EVERY EVENING, First dose on 09/12/17 at 1800, Until Discontinued, Routine 1818 (Given - Provider: Mariela So RN) 1002 (OCT Hold - Provider: Admin Adt - Reason: Transfer to a Procedural area)1134 ([facility] Unhold - [...] - Reason: Transfer to a Procedural area)1134 ([facility] Unhold - [...] (Given - Provider: Keisha Mae RN) 1002 ([facility] Hold - Provider: Admin Adt - Reason: Transfer to a Procedural area)1134 ([facility] Unhold - [...] RN)0809 (Given - Provider: Rupal Munguia RN)1002 ([facility] Hold - Provider: Admin Adt - Reason: Transfer to a Procedural area)1134 ([facility] Unhold - Provider: Admin Adt) oxyCODONE (ROXICODONE) immediate release tablet 10 mg 10 mg, Oral, 4 TIMES DAILY PRN, Starting on 09/12/17 at 1735, Until 09/14/17 at 1312, pain unresponsive to tylenol, Routine 1002 ([facility] Hold - Provider: Admin Adt - Reason: Transfer to a Procedural area)1134 ([facility] Unhold - [...] provided on this medication record., Routine 1002 ([facility] Hold - Provider: Admin Adt - Reason: Transfer to a Procedural area)1134 ([facility] Unhold - [...] UA) documented in this encounter Care Teams Site Project Manager Relationship Specialty Start Date End Date Coni Lim MD [address] [place] [address] PCP - General 07/16/10 documented as of this encounter
--- OUTSIDE RECORDS SUMMARY | 2024-05-17 16:09 | XMS_ITS | Encounter Summary ---
Author Organization [facility] [place] [address] Care Team Providers Care Wire Taper Name Role Phone Coni Lim MD Primary Care Provider [phone] Encounter Details Date Type Department Care Team (Late st Contact Info) Description 11/26/2016 Telephone Cardiology at [address] [phone] Roque Paulson MD [facility] [place] [address] Social History Tobacco Use Types Packs/Day Years [...] PM Referring Provider: Dr. Kimball Patient Location: [facility] per OSH: 51 y/o old with [...] on filedocumented in this encounter Care Teams Wire Taper Relationship Specialty Start Date End Date Coni Lim MD [address] [place] [address] PCP - General 07/16/10 documented as of this encounter
--- OUTSIDE RECORDS SUMMARY | 2024-05-17 16:09 | XMS_ITS | Encounter Summary ---
Author Organization [facility] Address [facility] [place] [address] Care Team Providers Care Radio Survey Worker Name Role Phone Coni Lim MD Primary Care Provider [phone] Reason for Visit * Auth/Cert Specialty Diagnoses / Procedures Referred By Ruby garvin Referred To Contact Diagnoses Unstable angina [place] Referral ID Status Reason Start Date Expiration Date Visits Re quested Visits Authorized [id number] 1 1 Encounter Details Date Type Department Care Team (Latest Contact Info) Description 11/21/2016 7:58 PM EDT - 11/25/2016 11:04 AM EDT Hospital Encounter Intermediate [place] [address] Valentín Oreilly MD [facility] [place] [address] Roque Sanches MD [facility] [place] [address] Unstable angina Discharge Disposition: Home Social History [...] Romeo Coelho Patient Age: 51 y.o. Language: Swedish Race: White Ethnicity: Not nor Admit date: 11/21/2016 Discharge date and time: 11/25/2016 Attending Physician: Roque Sanches MD Discharge Physician: Roque Sanches MD Follow-up Recommendations for Providers: 1. Admitted with unstable angina. Drug-eluting stent RCA. 2. Requires dual antiplatelet therapy for 1 year 3. Smoking cessation Inpatient Provider Contact Information: Keisha Rose APRN [facility] Provider # [id number] Discharge Diagnoses (Hospital Problems) and Secondary Diagnoses (Chronic Problems): Active Hospital Problems Diagnosis ??? Unstable angina ??? CAD (coronary artery disease) -Coronary Angio 07/29/2013: 65% (FFR 0.74) mid LAD lesion s/p PCI with 3.5 X 18 mm JACINDA - [facility] 2009 post abnormal nuc stress +IW, [...] restenosis addressed with LAD stentangioplasty at [facility] in January 2014), DM2, HTN, dyslipidemia, continued tobacco use, and obesity was transferred from [facility] to [facility] for further evaluation of unstable angina. Prior [...] PF, Split 07/30/2013 ??? Influenza Vaccine (Novel) [id number], Injectable 05/24/2009 ??? Influenza Vaccine w/Preservative, Split [...] contact one of the cardiology nurses at [facility] during normal business hours(Thursday through Thursday, 8 AM to 5 PM) at . During nonbusiness hours (evenings, nights, weekends, holidays), you may contact the division field inspector blanking machine operator at . Return to work: -unemployed Driving: -No driving for 48 hours after catheterization. Follow up Appointments: ?? PCP: Coni Lim MD will see you on November 28, 2016 at 2:45 PM at [facility]. You may contact her office at [phone] with any questions or concerns ?? Cardiology: Please see Dr. Ling in [place], [place] on December 16 at 11:00 AM. His office may be contacted at with any questions or concerns. Home oxygen therapy: N/A Arrangements for VNA/home care: none Discharge References/Attachments None Keisha Rose APRN Nurse Practitioner-Department of Cardiology [email or web address] Pager [phone] Phone number: [phone] Fax number [phone] I have discussed this patient with attending [...] contact one of the cardiology nurses at [facility] during normal business hours(Thursday through Thursday, 8 AM to 5 PM) at . During nonbusiness hours (evenings, nights, weekends, holidays), you may contact the division field inspector blanking machine operator at . Return to work: -unemployed Driving: -No driving for 48 hours after catheterization. Follow up Appointments: ?? PCP: Coni Lim MD will see you on November 28, 2016 at 2:45 PM at [facility]. You may contact her office at [phone] with any questions or concerns ?? Cardiology: Please see Dr. Ling in [place], [place] on December 16 at 11:00 AM. [...] Nicotine Replacement Therapy , November 23, 2012: https://www.federalregister.gov/articles//2013-05557/modificati yag-py-sznpaitt-zv-rdjuxxhr-budaxhucftq-jlrwjnp-dyoeidin-qqs-tcej-wdt-rqszyox-hu man-use Nicotine lozenge instructions: Use the 4 [...] Nicotine Replacement Therapy , November 23, 2012: https://www.federalregister.gov/articles//2013-56195/modificati moy-of-wowrncir-fn-tsjuzuaf-flzqgdsrvee-vqhmntj-huweuzcu-vmu-uqjo-dlc-tzphant-hu man-use Remember to cut down on regular coffee intake to no more than 2-3 eight ounce cups a day. Substitute decaf or herbal tea, water or any other non caffeine drink for regular coffee to avoid rising caffeine levels when you don't smoke. 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 Unstable angina ??? CAD (coronary artery disease) -Coronary Angio 07/29/2013: 65% (FFR 0.74) mid LAD lesion s/p PCI with 3.5 X 18 mm JACINDA - [facility] 2009 post abnormal nuc stress +IW, [...] priority for the procedure was Urgent. The [facility] indication for the procedure was PCI [...] addressed with LAD stent angioplasty at [facility] in January 2014, DM2, HTN, dyslipidemia, continued tobacco use, and obesity transferred to [facility] for further evaluation of unstable angina. Underwent Cardiac catheterization to day (11/24/16)-CI of RCA Comfortable overnight Smoking cessation consult Plan: 1. 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 Unstable angina ??? CAD (coronary artery disease) -Coronary Angio 07/29/2013: 65% (FFR 0.74) mid LAD lesion s/p PCI with 3.5 X 18 mm JACINDA - [facility] 2009 post abnormal nuc stress +IW, [...] addressed with LAD stent angioplasty at [facility] in January 2014, DM2, HTN, dyslipidemia, continued tobacco use, and obesity transferred to [facility] for further evaluation of unstable angina. Cardiac catheterization today ( 7). Plan: 1. 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 Unstable angina ??? CAD (coronary artery disease) -Coronary Angio 07/29/2013: 65% (FFR 0.74) mid LAD lesion s/p PCI with 3.5 X 18 mm JACINDA - [facility] 2009 post abnormal nuc stress +IW, [...] addressed with LAD stent angioplasty at [facility] in January 2014, DM2, HTN, dyslipidemia, continued tobacco use, and obesity transferred to [facility] for further evaluation of unstable angina. Cardiac catheterization anticipated tomorrow AM (11/24/16). Plan: 1. 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 Unstable angina ??? CAD (coronary artery disease) -Coronary Angio 07/29/2013: 65% (FFR 0.74) mid LAD lesion s/p PCI with 3.5 X 18 mm JACINDA - [facility] 2009 post abnormal nuc stress +IW, [...] addressed with LAD stent angioplasty at [facility] in January 2014, DM2, HTN, dyslipidemia, continued tobacco use, and obesity transferred to [facility] for further evaluation of unstable angina. Cardiac catheterization anticipated soon. Plan: 1. Unstable angina LAD and LCx disease defined at prior cardiac catheterizations (at [facility] and [facility]) Describes crescendo anginal symptoms which [...] a 51 yr M ( Transferred from [place]) PMH of CAD - multiple PCIs in past, latest cath in January 2014 ( at [facility] ) JACINDA x2 to LAD, prior [...] in ED. Symptoms reminiscent of his prior NH / Unstable angina. Compliant with meds . [...] Myocardial Infarction Father 46 [place], CABG ??? Diabetes Mother ??? Hypertension Mother [...] son (age 18 months), daughter 11 in [place], [place]. Takes care of his mother who has dementia and he takes her to dialysis. is disabled. Has grown daughter who is 29 years old. 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 Similar in character to prior NH / UA; Nitrate responsive. ECG : nsr [...] in the outpatient cardiac rehabilitation program at [place] was discussed. Patient agrees to a referral [...] Myocardial Infarction Father 46 [place], CABG ??? Diabetes Mother ??? Hypertension Mother [...] his brain. TREATMENT PLAN/RECOMMENDATIONS: [X ] Provide [facility] Tobacco Cessation Packet Discuss and prescribe (if [...] 8-end 1 mg PO BID Refer to [place] [employer]uit [place] e-referral placed X Refer to [place] 802 Quits (fill out and fax enrollment [...] Follow up: with his PCP and the [place] quitline, 802QUITS Patient not ready to quit at this time. Follow up: X It is strongly recommended that the patient be discharged to home on Tobacco Treatment medication(s) as recommended above and follow up with either PCP and/or Quit line [phone]-SBME-NOW. X These recommendations have been discussed with the patient's primary team. DARCY STALEY APRN, CTTS-M Pager #[phone] [facility] Thoracic Surgery [...] the Past 30 Days: None at [facility], nor at outside hospitals, per pt's report. 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 I've been disabled for five years due to Fibromyalgia and Arthritis. Home Environment: Lives with his , Dasia in [place], [place]. Social & Family Supports/Community Resources: Dasia Coelho (Spouse) [address] [facility] [address] (H) [phone] (M) Behavioral Health History: Per pt report, [...] Coverage: Yes, has Silver Script. Preferred Pharmacy: [id number] - [place], [place] - [address] [place] [address] ? [address] [facility] [address] ? Not a 24 hour pharmacy; exact hours not known Other: None Primary Care Provider: Coni Lim MD [phone] Patient/Caregiver Goals of Treatment: To return home and to his normal activities. Potential Needs for Transition of Care: Rehab/SNF: Pt has never been a pt in a rehab setting. Home Health: [facility] in the past (after right knee surgery). DME: Cane at home (doesn't consistently use it). Dialysis: N/A Community Resources: None Transportation: I may need RCT transportation. My car is in [facility] parking lot. I havethe only set of keys. Other: None Anticipated Barriers to Discharge/Special Considerations: No barriers noted at this time. Plan: A member of the Care Management team will continue to monitor progress, follow for continuity of care and assist with transition of care planning. SON MARLEY, RN Pager: [phone] * Plan of Care - Christy Medina [...] Radiograph today, Echo and Cardiac Enzymes Pending Dean Of Admissions ? Thursday more likely Thursday (pt. Informed) [...] ability. Romeo Weineroney was offered copies of [facility] publications; Are You a Hospital Inpatient or Outpatient?and Medicare Rights and Protections. Notice has been signed along with date and time, a copy of notice made and given to patient/patient services representative. Original notice to be scanned into [...] Procedure Name Priority Date/Time Associated Diagnosis Comments NUTRITION FACULTY MEMBER SCAN 11/26/2016 12:00 AM EDT POCT GLUCOSE [...] Routine 11/22/2016 7:45 PM EDT CARDIAC ENZYMES ([facility]) Routine 11/22/2016 5:11 PM EDT APTT STAT 11/22/2016 5:11 PM EDT POCT GLUCOSE Routine 11/22/2016 4:50 PM EDT ECHO COMPLETE W CONTRAST Routine 11/22/2016 12:59 PM EDT Unstable angina POCT GLUCOSE Routine 11/22/2016 12:11 PM EDT CARDIAC ENZYMES ([facility]) STAT 11/22/2016 10:06 AM EDT APTT Routine [...] 11/23/19 17 3:58 AM EDT CARDIAC ENZYMES ([facility]) Routine 11/22/2016 3:58 AM EDT APTT STAT [...] in this encounter Results * SCAN DOC: NUTRITION FACULTY MEMBER (11/26/2016 12:00 AM EDT) Anatomical Region Laterality Modality Other Narrative 11/26/2016 12:00 AM EDT Ordered by an unspecified provider. Scanning Provider MEDIA MGR SCAN EXT O RDR/RSLT * POCT Glucose (11/25/2016 7:42 AM EDT) Glucose, POC 123 65 - 199 mg/dL [facility] Comment: Supplemental ranges: <140 mg/dL before meals <180 mg/dL all other times of the day Blood specimen (specimen) 11/25/2016 7:42 AM EDT 11/25/2016 7:42 AM EDT Roque Sanches MD POINT OF CARE TEST O RDERABLES Performing Organization Address [facility] Co de Phone Number [facility] [place] [address] * EKG 12 Lead (11/25/2016 7:23 AM EDT) Ventricular rate 70 BPM MUSE SYSTEM Atrial Rate 70 BPM MUSE SYSTEM P-R Interval 140 ms MUSE SYSTEM QRS Duration 88 ms MUSE SYSTEM Q-T Interval 388 ms MUSE SYSTEM QTC Calculated (Bezet) 419 ms MUSE SYSTEM Calculated P [place] 3 degrees MUSE SYSTEM Calculated R [place] 19 degrees MUSE SYSTEM Calculated T [place] 42 degrees MUSE SYSTEM INTERPRETATION Normal sinus rhythm Normal ECG When compared with ECG of 24-NOV-2016 19:05, (unconfirmed) No significant change was found I personally reviewed the tracing and edited the fellows interpretation Confirmed by fellow MD Kalin, Nessa Lee ([id number]) on 11/25/2016 10:44:22 AM Confirmed by MD Meli, Tigre ([id number]) on 11/25/2016 5:24:33 PM MUSE SYSTEM 11/25/2016 7:23 AM EDT 11/25/2016 5:24 PM EDT Roque Sanches MD ECG ORDERABLES Performing Organization Address [facility] Co de Phone Number MUSE SYSTEM * Cardiac Enzymes (11/25/2016 4:52 AM EDT) Troponin-T <0.03 <=0.03 ng/mL [facility] Comment: 0.03 ng/mL: Represents the 99th percentile upper reference limit for normals. >0.03 ng/mL: Elevated cardiac troponin T level indicative of myocardial damage. Diagnosis of acute, evolving or recent [place] requires a typical rise and gradual fall [...] consensus document of the Joint Society of Cardiology/[place] College of Cardiology Committee for the redefinition of myocardial infarction. ??Journal of the [place] College of Cardiology 2000; 36: 959-969] Creatine Kinase 139 0 - 200 unit/L [facility] Comment:result rechecked-sb Blood specimen (specimen) Venous Draw / Unknown 11/25/2016 4:52 AM EDT 11/25/2016 5:41 AM EDT Narrative Resulting Agency Comment Spec In Lab Roque Sanches MD CHEMISTRY ORDERABLES [facility] [place] [address] * Differential, Automated (11/25/2016 4:52 AM EDT) Neutrophil % 61.6 % [facility] Neutrophil Absolute 5.56 1.70 - 6.10 x10(3)/[facility] Lymph % 26.8 % [facility] Lymphocytes Abs 2.4 0.9 - 3.2 x10(3)/[facility] Monocyte % 6.3 % [facility] Monocyte Abs 0.6 0.3 - 0.9 x10(3)/[facility] Eos % 4.1 % [facility] Eosinophils Abs 0.4 0.0 - 0.4 x10(3)/[facility] Basophil % 0.8 % [facility] Baso Absolute 0.1 0.0 - 0.1 x10(3)/[facility] Immature Gran % 0.40 % [facility] Comment: Immature granulocytes(IG's)percentage and absolute count will include metamyelocytes, myelocytes, and promyelocytes. Blood smears from CBCs yielding IG's will be scanned manually for concordance. If this scan disagrees with the automated IG or if promyelocytes are noted, a manual differential will be performed. Immature Gran Absolute 0.04 0.00 - 0.04 x10(3)/[facility] Blood specimen (specimen) 11/25/2016 4:52 AM EDT 11/25/2016 5:37 AM EDT Narrative Resulting Agency Comment Spec In Lab Roque Sanches MD HEMATOLOGY ORDERABLE S [facility] [place] [address] * (ABNORMAL) Hemogram (11/25/2016 4:52 AM EDT) White Blood Cell 9.0 4.0 - 9.5 x10(3)/[facility] Red Blood Cell 5.04 4.58 - 5.54 x10(6)/[facility] Hemoglobin 14.5 13.7 - 16.5 gm/dL [facility] Hematocrit 44.2 40.5 - 48.5 % [facility] Mean Cell Volume 87.7 82.9 - 93.1 [facility] Mean Cell Hemoglobin 28.8 27.5 - 32.1 pg [facility] Mean Cell Hemoglobin Concentration 32.8 32.0 - 35.7 gm/dL [facility] Platelet 214 145 - 357 x10(3)/[facility] RDW Standard Deviation 45.1(H) 36.0 - 45.0 [facility] RDW coefficient of variation 14.0(H) 11.4 - 13.8 % [facility] Mean Platelet Volume 11.1 7.6 - 12.9 [facility] NRBC% auto 0.0 % [facility] NRBC Absolute 0.000 0.000 - 0.000 x10(3)/[facility] Blood specimen (specimen) 11/25/2016 4:52 AM EDT 11/25/2016 5:37 AM EDT Narrative Resulting Agency Comment Spec In Lab Roque Sanches MD HEMATOLOGY ORDERABLE S [facility] [place] [address] * (ABNORMAL) BMP w/fasting Glucose (11/25/2016 4:52 AM EDT) Glucose Fasting 113(H) 65 - 99 mg/dL [facility] Comment: ?Fasting* Glucose Interpretive [...] of Diabetes Mellitus, Position Statement from the [place] Diabetes Association. ??Diabetes Care, Volume 33, Supplement 1, Aug 2009 Blood Urea Nitrogen 10 10 - 20 mg/dL [facility] Creatinine 0.87 0.80 - 1.50 mg/dL [facility] Comment: Please note that the pediatric reference intervals supplied above were not validated at [facility]. Results from pediatric patients should be interpreted in conjunction to the patient's age, height and muscle mass. Sodium 142 135 - 145 mmol/L [facility] Potassium 3.9 3.5 - 5.0 mmol/L [facility] Comment: Please note: ??Patients with WBC >100,000 may have falsely elevated Potassium levels. ??For accurate Potassium quantification in these patients send serum separator tube (gold top) for subsequent determinations. ??Contact the Clinical Chemistry Laboratory if there are any questions. Chloride 108(H) 98 - 107 mmol/L [facility] Carbon Dioxide 19(L) 22 - 31 mmol/L [facility] Anion Gap 15 5 - 15 mmol/L [facility] Calcium 9.5 8.5 - 10.5 mg/dL [facility] Est Glomerular Filtration Rate >60 >=60 [facility] Comment: This estimated GFR [...] the following links into your internet browser. [email or web address] [email or web address]/DHMCnkf Blood specimen (specimen) 11/25/2016 4:52 AM EDT 11/25/2016 5:37 AM EDT Narrative Resulting Agency Comment Spec In Lab Roque Sanches MD CHEMISTRY ORDERABLES Performing Organization Address [place]/[facility] Co de Phone Number [facility] [place] [address] * EKG 12 Lead (11/24/2016 7:05 PM EDT) Ventricular rate 85 BPM MUSE SYSTEM Atrial Rate 85 BPM MUSE SYSTEM P-R Interval 152 ms MUSE SYSTEM QRS Duration 86 ms MUSE SYSTEM Q-T Interval 354 ms MUSE SYSTEM QTC Calculated (Bezet) 421 ms MUSE SYSTEM Calculated P [place] 55 degrees MUSE SYSTEM Calculated R [place] 44 degrees MUSE SYSTEM Calculated T [place] 40 degrees MUSE SYSTEM INTERPRETATION Normal sinus [...] Modality Other Narrative 11/24/2016 6:23 PM EDT ?[facility] ? Cardiac Catheterization/Intervention Report ? Patient Name: Coelho, Romeo A. ? Procedure Date: 11/24/2016 ? A #: [id number] ? Primary Physician: Anton Horvath ? Case #: [id number] ? File Name: [id number] ? Catheterization Order Number: [id number] ? [facility] ? Final Report [place], [place] ? Patient Name: ? Romeo Coelho ? ID#: ?[id number] ? : ?1965 ? Procedure Date: ? [...] presented with: unstable angina (w/i 60 days). [place] ?Cardiovascular Society angina class was III. This [...] medical regimen was changed as ?follows: Continue detention aspirin and plavix. ? Comments: ?Classic anginal [...] Procedure Note Anton Horvath MD - 11/25/2016 [facility] Cardiac Catheterization/Intervention Report Patient Name: Coelho Romeo PopNatalie Procedure Date: 11/24/2016 A #: [id number] Primary Physician: Anton Horvath Case #: [id number] File Name: [id number] Catheterization Order Number: [id number] [facility] FinalReport [place], [place] Patient Name: Romeo Coelho ID#:[id number] :1965 Procedure Date: November 24, 2016 Case [...] presented with: unstable angina (w/i 60 days). [place] Cardi[employer] Society angina class was III. This [...] time was 8.0 minutes, dose area product [id number] mGYcm2 and air kerma was 1,689 mGY. [...] medical regimen was changed as follows: Continue long term acute care registered nurse aspirin and plavix. Comments: Classic anginal symptoms [...] Glucose, POC 88 65 - 199 mg/dL [facility] Comment: Supplemental ranges: <140 mg/dL before meals <180 mg/dL all other times of the day Blood specimen (specimen) 11/24/2016 4:27 PM EDT 11/24/2016 4:27 PM EDT Roque Sanches MD POINT OF CARE TEST O RDERABLES [facility] [place] [address] * POCT Glucose (11/24/2016 11:56 AM EDT) Glucose, POC 110 65 - 199 mg/dL [facility] Comment: Supplemental ranges: <140 mg/dL before meals <180 mg/dL all other times of the day Blood specimen (specimen) 11/24/2016 11:56 AM EDT 11/24/2016 11:56 AM EDT Roque Sanches MD POINT OF CARE TEST O RDERAAIRAM Performing Organization Address [facility] Co de Phone Number [facility] [place] [address] * POCT Glucose (11/24/2016 7:43 AM EDT) Glucose, POC 131 65 - 199 mg/dL [facility] Comment: Supplemental ranges: <140 mg/dL before meals <180 mg/dL all other times of the day Blood specimen (specimen) 11/24/2016 7:43 AM EDT 11/24/2016 7:43 AM EDT Roque Sanches MD POINT OF CARE TEST O RDERABLES Performing Organization Address [facility] Co de Phone Number [facility] [place] [address] * EKG 12 Lead (11/24/2016 7:20 AM EDT) Ventricular rate 65 BPM MUSE SYSTEM Atrial Rate 65 BPM MUSE SYSTEM P-R Interval 158 ms MUSE SYSTEM QRS Duration 90 ms MUSE SYSTEM Q-T Interval 396 ms MUSE SYSTEM QTC Calculated (Bezet) 411 ms MUSE SYSTEM Calculated P [place] 51 degrees MUSE SYSTEM Calculated R [place] 26 degrees MUSE SYSTEM Calculated T [place] 24 degrees MUSE SYSTEM INTERPRETATION Normal sinus rhythm Normal ECG When compared with ECG of 23-NOV-2016 07:16, No significant change was found I personally reviewed the tracing and edited the fellows interpretation Confirmed by fellow MD Kalin, Nessa Lee ([id number]) on 11/24/2016 8:23:27 AM Confirmed by MD Margoth, Rajni ([id number]) on 11/24/2016 6:22:34 PM MUSE SYSTEM 11/24/2016 7:20 AM EDT 11/24/2016 6:22 PM EDT Roque Sanches MD ECG ORDERABLES MUSE SYSTEM * (ABNORMAL) Differential, Automated (11/24/2016 6:20 AM EDT) Neutrophil % 54.5 % [facility] Neutrophil Absolute 4.85 1.70 - 6.10 x10(3)/[facility] Lymph % 31.5 % [facility] Lymphocytes Abs 2.8 0.9 - 3.2 x10(3)/[facility] Monocyte % 8.1 % [facility] Monocyte Abs 0.7 0.3 - 0.9 x10(3)/[facility] Eos % 4.4 % [facility] Eosinophils Abs 0.4 0.0 - 0.4 x10(3)/[facility] Basophil % 0.9 % [facility] Baso Absolute 0.1 0.0 - 0.1 x10(3)/[facility] Immature Gran % 0.60 % [facility] Comment: Immature granulocytes(IG's)percentage and absolute count will include metamyelocytes, myelocytes, and promyelocytes. Blood smears from CBCs yielding IG's will be scanned manually for concordance. If this scan disagrees with the automated IG or if promyelocytes are noted, a manual differential will be performed. Immature Gran Absolute 0.05(H) 0.00 - 0.04 x10(3)/[facility] Blood specimen (specimen) 11/24/2016 6:20 AM EDT 11/24/2016 6:34 AM EDT Narrative Resulting Agency Comment Spec In Lab Drew Pepe MD HEMATOLOGY ORDERABLE S [facility] [place] [address] * (ABNORMAL) Hemogram (11/24/2016 6:20 AM EDT) White Blood Cell 8.9 4.0 - 9.5 x10(3)/ L [facility] Red Blood Cell 4.93 4.58 - 5.54 x10(6)/ L [facility] Hemoglobin 14.7 13.7 - 16.5 gm/dL [facility] Hematocrit 43.2 40.5 - 48.5 % [facility] Mean Cell Volume 87.6 82.9 - 93.1 fL [facility] Mean Cell Hemoglobin 29.8 27.5 - 32.1 pg [facility] Mean Cell Hemoglobin Concentration 34.0 32.0 - 35.7 gm/dL [facility] Platelet 203 145 - 357 x10(3)/[facility] RDW Standard Deviation 44.3 36.0 - 45.0 [facility] RDW coefficient of variation 13.9(H) 11.4 - 13.8 % [facility] Mean Platelet Volume 11.0 7.6 - 12.9 [facility] NRBC% auto 0.0 % [facility] NRBC Absolute 0.000 0.000 - 0.000 x10(3)/[facility] Blood specimen (specimen) 11/24/2016 6:20 AM EDT 11/24/2016 6:34 AM EDT Narrative Resulting Agency Comment Spec In Lab Drew Pepe MD HEMATOLOGY ORDERABLE S [facility] [place] [address] * (ABNORMAL) APTT (11/24/2016 6:20 AM EDT) [facility] Signature Partial Thromboplastin Time 110(H) 25 - 35 sec [facility] Comment: The recommended therapeutic range for full dose, unfractionated heparin at [facility] is 80 ? 114 seconds. The use of the anti-Xa (heparin) level rather than the PTT is recommended for monitoring anticoagulation intensity in critically ill patients receiving unfractionated heparin by continuous IV infusion. Blood specimen (specimen) 11/24/2016 6:20 AM EDT 11/24/2016 6:34 AM EDT Narrative Resulting Agency Comment Spec In Lab Drew Pepe MD HEMATOLOGY ORDERABLE S Performing Organization Address City/[facility]/ZIP Co de Phone Number [facility] [place] [address] * (ABNORMAL) APTT (11/23/2016 11:27 PM EDT) Partial Thromboplastin Time 130(H) 25 - 35 sec [facility] Comment: The recommended therapeutic range for full dose, unfractionated heparin at [facility] is 80 ? 114 seconds. The use of the anti-Xa (heparin) level rather than the PTT is recommended for monitoring anticoagulation intensity in critically ill patients receiving unfractionated heparin by continuous IV infusion. Blood specimen (specimen) 11/23/2016 11:27 PM EDT 11/23/2016 11:30 PM EDT Narrative Resulting Agency Comment Spec In Lab Drew Pepe MD HEMATOLOGY ORDERABLE S Performing Organization Address [facility]/ZIP Co de Phone Number [facility] [place] [address] * POCT Glucose (11/23/2016 7:36 PM EDT) Glucose, POC 131 65 - 199 mg/dL [facility] Comment: Supplemental ranges: <140 mg/dL before meals <180 mg/dL all other times of the day Blood specimen (specimen) 11/23/2016 7:36 PM EDT 11/23/2016 7:36 PM EDT Roque Sanches MD POINT OF CARE TEST O RDERABLES Performing Organization Address City/[facility]/ZIP Co de Phone Number [facility] [place] [address] * POCT Glucose (11/23/2016 5:20 PM EDT) Glucose, POC 107 65 - 199 mg/dL [facility] Comment: Supplemental ranges: <140 mg/dL before meals <180 mg/dL all other times of the day Blood specimen (specimen) 11/23/2016 5:20 PM EDT 11/23/2016 5:20 PM EDT Roque Sanches MD POINT OF CARE TEST O RDERABLES Performing Organization Address [facility] Co de Phone Number [facility] [place] [address] * (ABNORMAL) APTT (11/23/2016 12:39 PM EDT) [facility] Partial Thromboplastin Time 68(H) 25 - 35 sec [facility] Comment: The recommended therapeutic range for full dose, unfractionated heparin at [facility] is 80 ? 114 seconds. The use of the anti-Xa (heparin) level rather than the PTT is recommended for monitoring anticoagulation intensity in critically ill patients receiving unfractionated heparin by continuous IV infusion. Blood specimen (specimen) 11/23/2016 12:39 PM EDT 11/23/2016 12:51 PM EDT Narrative Resulting Agency Comment Spec In Lab Roque Sanches MD HEMATOLOGY ORDERABLE S Performing Organization Address [facility] Co de Phone Number [facility] [place] [address] * POCT Glucose (11/23/2016 11:47 AM EDT) Glucose, POC 116 65 - 199 mg/dL [facility] Comment: Supplemental ranges: <140 mg/dL before meals <180 mg/dL all other times of the day Blood specimen (specimen) 11/23/2016 11:47 AM EDT 11/23/2016 11:47 AM EDT Roque Sanches MD POINT OF CARE TEST O RDERABLES Performing Organization Address [facility]/ZIP Co de Phone Number [facility] [place] [address] * POCT Glucose (11/23/2016 7:36 AM EDT) Glucose, POC 122 65 - 199 mg/dL [facility] Comment: Supplemental ranges: <140 mg/dL before meals <180 mg/dL all other times of the day Blood specimen (specimen) 11/23/2016 7:36 AM EDT 11/23/2016 7:36 AM EDT Roque Sanches MD POINT OF CARE TEST O RDERABLES Performing Organization Address [facility] de Phone Number [facility] [place] [address] * EKG 12 Lead (11/23/2016 7:16 AM EDT) Ventricular rate 72 BPM MUSE SYSTEM Atrial Rate 72 BPM MUSE SYSTEM P-R Interval 158 ms MUSE SYSTEM QRS Duration 90 ms MUSE SYSTEM Q-T Interval 382 ms MUSE SYSTEM QTC Calculated (Bezet) 418 ms MUSE SYSTEM Calculated P [place] 47 degrees MUSE SYSTEM Calculated R [place] 28 degrees MUSE SYSTEM Calculated T [place] 32 degrees MUSE SYSTEM INTERPRETATION Normal sinus rhythm Normal ECG When compared with ECG of 22-NOV-2016 07:12, No significant change was found Confirmed by MD ANIVAL, DEBORAH ([id number]) on 11/23/2016 1:58:05 PM MUSE SYSTEM 11/23/2016 7:16 AM EDT 11/23/2016 1:58 PM EDT Roque Sanches MD ECG ORDERABLES Performing Organization Address [facility] Co de Phone Number MUSE SYSTEM * (ABNORMAL) BMP w/fasting Glucose (11/23/2016 6:24 AM EDT) Glucose Fasting 143(H) 65 - 99 mg/dL [facility] Comment: ?Fasting* Glucose Interpretive [...] of Diabetes Mellitus, Position Statement from the [place] [employer]. ??Diabetes Care, Volume 33, Supplement 1, Aug 2009 Blood Urea Nitrogen 10 10 - 20 mg/dL [facility] Creatinine 0.98 0.80 - 1.50 mg/dL [facility] Comment: Please note that the pediatric reference intervals supplied above were not validated at [facility]. Results from pediatric patients should be interpreted in conjunction to the patient's age, height and muscle mass. Sodium 142 135 - 145 mmol/L [facility] Potassium 3.9 3.5 - 5.0 mmol/L [facility] Comment: Please note: ??Patients with WBC >100,000 may have falsely elevated Potassium levels. ??For accurate Potassium quantification in these patients send serum separator tube (gold top) for subsequent determinations. ??Contact the Clinical Chemistry Laboratory if there are any questions. Chloride 106 98 - 107 mmol/L [facility] Carbon Dioxide 20(L) 22 - 31 mmol/L [facility] Anion Gap 16(H) 5 - 15 mmol/L [facility] Calcium 9.6 8.5 - 10.5 mg/dL [facility] Est Glomerular Filtration Rate >60 >=60 [facility] Comment: This estimated GFR [...] the following links into your internet browser. [email or web address] [email or web address] Blood specimen (specimen) 11/23/2016 6:24 AM EDT 11/23/2016 6:32 AM EDT Narrative Resulting Agency Comment Spec In Lab Roque Sanches MD CHEMISTRY ORDERABLES Performing Organization Address [facility] Co de Phone Number [facility] [place] [address] * (ABNORMAL) APTT (11/23/2016 6:24 AM EDT) Pathologist [facility] Partial Thromboplastin Time 103(H) 25 - 35 sec [facility] Comment: The recommended therapeutic range for full dose, unfractionated heparin at [facility] is 80 ? 114 seconds. The use of the anti-Xa (heparin) level rather than the PTT is recommended for monitoring anticoagulation intensity in critically ill patients receiving unfractionated heparin by continuous IV infusion. Blood specimen (specimen) 11/23/2016 6:24 AM EDT 11/23/2016 6:32 AM EDT Narrative Resulting Agency Comment Spec In Lab Drew Pepe MD HEMATOLOGY ORDERABLE S Performing Organization Address [facility] Co de Phone Number [facility] [place] [address] * Differential, Automated (11/23/2016 6:24 AM EDT) [facility] Neutrophil % 58.2 % [facility] Neutrophil Absolute 4.63 1.70 - 6.10 x10(3)/[facility] Lymph % 29.0 % [facility] Lymphocytes Abs 2.3 0.9 - 3.2 x10(3)/[facility] Monocyte % 7.3 % [facility] Monocyte Abs 0.6 0.3 - 0.9 x10(3)/[facility] Eos % 4.1 % [facility] Eosinophils Abs 0.3 0.0 - 0.4 x10(3)/[facility] Basophil % 1.0 % [facility] Baso Absolute 0.1 0.0 - 0.1 x10(3)/[facility] Immature Gran % 0.40 % [facility] Comment: Immature granulocytes(IG's)percentage and absolute count will include metamyelocytes, myelocytes, and promyelocytes. Blood smears from CBCs yielding IG's will be scanned manually for concordance. If this scan disagrees with the automated IG or if promyelocytes are noted, a manual differential will be performed. Immature Gran Absolute 0.03 0.00 - 0.04 x10(3)/[facility] Blood specimen (specimen) 11/23/2016 6:24 AM EDT 11/23/2016 6:32 AM EDT Narrative Resulting Agency Comment Spec In Lab Drew Pepe MD HEMATOLOGY ORDERABLE S [facility] [place] [address] * (ABNORMAL) Hemogram (11/23/2016 6:24 AM EDT) White Blood Cell 8.0 4.0 - 9.5 x10(3)/[facility] Red Blood Cell 5.00 4.58 - 5.54 x10(6)/[facility] Hemoglobin 14.5 13.7 - 16.5 gm/dL [facility] Hematocrit 43.1 40.5 - 48.5 % [facility] Mean Cell Volume 86.2 82.9 - 93.1 fL [facility] Mean Cell Hemoglobin 29.0 27.5 - 32.1 pg [facility] Mean Cell Hemoglobin Concentration 33.6 32.0 - 35.7 gm/dL [facility] Platelet 207 145 - 357 x10(3)/[facility] RDW Standard Deviation 44.5 36.0 - 45.0 [facility] LABORATORY RDW coefficient of variation 14.0(H) 11.4 - 13.8 % [facility] Mean Platelet Volume 10.4 7.6 - 12.9 fL [facility] NRBC% auto 0.0 % [facility] NRBC Absolute 0.000 0.000 - 0.000 x10(3)/mc L [facility] Blood specimen (specimen) 11/23/2016 6:24 AM EDT 11/23/2016 6:32 AM EDT Narrative Resulting Agency Comment Spec In Lab Drew Pepe MD HEMATOLOGY ORDERABLE S Performing Organization Address [facility]/ZIP Co de Phone Number [facility] [place] [address] * (ABNORMAL) APTT (11/23/2016 12:03 AM EDT) Partial Thromboplastin Time 116(H) 25 - 35 sec [facility] Comment: The recommended therapeutic range for full dose, unfractionated heparin at [facility] is 80 ? 114 seconds. The use of the anti-Xa (heparin) level rather than the PTT is recommended for monitoring anticoagulation intensity in critically ill patients receiving unfractionated heparin by continuous IV infusion. Blood specimen (specimen) 11/23/2016 12:03 AM EDT 11/23/2016 12:07 AM EDT Narrative Resulting Agency Comment Spec In Lab Drew Pepe MD HEMATOLOGY ORDERABLE S Performing Organization Address [facility] Co de Phone Number [facility] [place] [address] * POCT Glucose (11/22/2016 7:45 PM EDT) Glucose, POC 102 65 - 199 mg/dL [facility] Comment: Supplemental ranges: <140 mg/dL before meals <180 mg/dL all other times of the day Blood specimen (specimen) 11/22/2016 7:45 PM EDT 11/22/2016 7:45 PM EDT Roque Sanches MD POINT OF CARE TEST O RDERABLES Performing Organization Address City/State/[facility] Co de Phone Number [facility] [place] [address] * Cardiac Enzymes (11/22/2016 5:11 PM EDT) [facility] Signature Troponin-T <0.03 <=0.03 ng/mL [facility] Comment: 0.03 ng/mL: Represents the 99th percentile upper reference limit for normals. >0.03 ng/mL: Elevated cardiac troponin T level indicative of myocardial damage. Diagnosis of acute, evolving or recent [place] requires a typical rise and gradual fall [...] consensus document of the Joint Society of Cardiology/[place] [employer] Committee for the redefinition of myocardial infarction. ??Journal of the [place] College of [employer]iology 2000; 36: 959-969] Creatine Kinase 46 0 - 200 unit/L [facility] Blood specimen (specimen) 11/22/2016 5:11 PM EDT 11/22/2016 5:15 PM EDT Narrative Resulting Agency Comment Spec In Lab Roque Sanches MD CHEMISTRY ORDERABLES Performing Organization Address [facility] Co de Phone Number [facility] [place] [address] * (ABNORMAL) APTT (11/22/2016 5:11 PM EDT) [facility] Partial Thromboplastin Time 76(H) 25 - 35 sec [facility] Comment: The recommended therapeutic range for full dose, unfractionated heparin at [facility] is 80 ? 114 seconds. The use of the anti-Xa (heparin) level rather than the PTT is recommended for monitoring anticoagulation intensity in critically ill patients receiving unfractionated heparin by continuous IV infusion. Blood specimen (specimen) 11/22/2016 5:11 PM EDT 11/22/2016 5:15 PM EDT Narrative Resulting Agency Comment Spec In Lab Drew Pepe MD HEMATOLOGY ORDERABLE S Performing Organization Address [facility] Co de Phone Number [facility] [place] [address] * POCT Glucose (11/22/2016 4:50 PM EDT) Glucose, POC 100 65 - 199 mg/dL [facility] Comment: Supplemental ranges: <140 mg/dL before meals <180 mg/dL all other times of the day Blood specimen (specimen) 11/22/2016 4:50 PM EDT 11/22/2016 4:50 PM EDT Roque Sanches MD POINT OF CARE TEST O RDERABLES Performing Organization Address [facility]/ZIP Co de Phone Number [facility] [place] [address] * ECHO COMPLETE W CONTRAST (11/22/2016 12:59 PM EDT) EF 60 [facility]ART[facility] SYSTEM Anatomical Region Laterality Modality Other 11/22/2016 Narrative 11/22/2016 1:38 PM EDT Procedure: ?Transthoracic Echocardiogram Patient: ?COELHO ROMEO A ? (Age): 1965(51y) Med Rec#: ? [id number] ?Sex: ?M ? Site Loc: ? [facility] ?Ht / Wt: ??178(cm)/95(kg) Pt. Loc: ?Adult Floor ? BSA: ?2.13 Study Date: ?? 11/22/2016 ?Pt. Type: Inpatient Tape: ? Referring: Roque Sanches ([id number]) Reading: Roque Sanches ([id number]) [employer]p [employer]: [address] Diagnosis: *ICD-10-PCS Unstable angina (I20.0) CPT Codes: *Echo Full (62603) *Spectral Doppler (08014) *Color Doppler (64498) *Optison ([id number]) Rhythm: ? Sinus BP: ? 113/70 SUMMARY: [...] E-wave Vmax ?0.5 ?m/sec ? MV deceleration [id number] ?msec ? MV A-wave Vmax ?0.4 ?m/sec [...] ? Mid-Inferior ?Normal ? Mid-Inferoseptal ?Normal ? [place]-Septal ? Normal ? [place]-Anterior ? Normal ? [place]-Lateral ?Normal ? [place]-Inferior ? Normal ? [place]-Tip ?Normal ? This report has been electronically signed by: Roque Sanches M.D. ? 11/22/2016 13:38:29 Images reviewed and interpretation verified [facility] Cardiac Ultrasound Laboratory Procedure Note Roque Sanches MD - 11/22/2016 Procedure: Transthoracic Echocardiogram Patient: LAQUITA Pop DOB(Age): 1965(51y) Med Rec#: [id number] Sex: M Site Loc: [facility] Ht / Wt: 178(cm)/95(kg) Pt. Loc: Adult Floor BSA: 2.13 Study Date: 11/22/2016 Pt. Type: Inpatient Tape: Referring: Roque Sanches ([id number]) Reading: Roque Sanches () [employer]: Jorge A [address] Diagnosis: *ICD-10-PCS Unstable angina (I20.0) CPT Codes: *Echo Full (97632) *Spectral Doppler (32135) *Color Doppler (04297) *Optison ([id number]) Rhythm: Sinus BP: 113/70 SUMMARY: 1. The [...] MV E-wave Vmax 0.5 m/sec MV deceleration [id number] msec MV A-wave Vmax 0.4 m/sec MV [...] Hypokinetic Mid-Posterolateral Hypokinetic Mid-Inferior Normal Mid-Inferoseptal Normal [place]-Septal Normal [place]-Anterior Normal [place]-Lateral Normal [place]-Inferior Normal [place]-Tip Normal This report has been electronically signed by: Roque Sanches M.D. 11/22/2016 13:38:29 Images reviewed and interpretation verified [facility] Ul[facility]ound [facility] Drew Pepe MD ECHO ORDERABLES * POCT Glucose (11/22/2016 12:11 PM EDT) Glucose, POC 94 65 - 199 mg/dL [facility] Comment: Supplemental ranges: <140 mg/dL before meals <180 mg/dL all other times of the day Blood specimen (specimen) 11/22/2016 12:11 PM EDT 11/22/2016 12:11 PM EDT Roque Sanches MD POINT OF CARE TEST O RDERABLES Performing Organization Address [facility] Co de Phone Number [facility] [place] [address] * Potassium (11/22/2016 10:06 AM EDT) Potassium 3.8 3.5 - 5.0 mmol/L [facility] Comment: Please note: ??Patients [...] Pepe MD CHEMISTRY ORDERABLES Performing Organization Address [facility] Co de Phone Number [facility] [place] [address] * Cardiac Enzymes (11/22/2016 10:06 AM EDT) Troponin-T <0.03 <=0.03 ng/mL [facility] Comment: 0.03 ng/mL: Represents the 99th percentile upper reference limit for normals. >0.03 ng/mL: Elevated cardiac troponin T level indicative of myocardial damage. Diagnosis of acute, evolving or recent [place] requires a typical rise and gradual fall [...] consensus document of the Joint Society of Cardiology/[place] [employer] Committee for the redefinition of myocardial infarction. ??Journal of the [place] College of Cardiology 2000; 36: 959-969] Creatine Kinase 48 0 - 200 unit/L [facility] Blood specimen (specimen) 11/22/2016 10:06 AM EDT 11/22/2016 10:16 AM EDT Narrative Resulting Agency Comment Spec In Lab Drew Pepe MD CHEMISTRY ORDERABLES Performing Organization Address [facility] Co de Phone Number [facility] [place] [address] * (ABNORMAL) APTT (11/22/2016 10:06 AM EDT) [facility] Partial Thromboplastin Time 104(H) 25 - 35 sec [facility] Comment: The recommended therapeutic range for full dose, unfractionated heparin at [facility] is 80 ? 114 seconds. The use of the anti-Xa (heparin) level rather than the PTT is recommended for monitoring anticoagulation intensity in critically ill patients receiving unfractionated heparin by continuous IV infusion. Blood specimen (specimen) 11/22/2016 10:06 AM EDT 11/22/2016 10:16 AM EDT Narrative Resulting Agency Comment Spec In Lab Roque Sanches MD HEMATOLOGY ORDERABLE S Performing Organization Address [facility] de Phone Number [facility] [place] [address] * XR Chest PA & Lateral (Generic) [...] Glucose, POC 135 65 - 199 mg/dL [facility] Comment: Supplemental ranges: <140 mg/dL before meals <180 mg/dL all other times of the day Blood specimen (specimen) 11/22/2016 7:44 AM EDT 11/22/2016 7:44 AM EDT Roque Sanches MD POINT OF CARE TEST O RDERABLES Performing Organization Address [facility] Co de Phone Number [facility] [place] [address] * EKG 12 Lead (11/22/2016 7:12 AM EDT) Ventricular rate 74 BPM MUSE SYSTEM Atrial Rate 74 BPM MUSE SYSTEM P-R Interval 146 ms MUSE SYSTEM QRS Duration 92 ms MUSE SYSTEM Q-T Interval 382 ms MUSE SYSTEM QTC Calculated (Bezet) 424 ms MUSE SYSTEM Calculated P [place] 34 degrees MUSE SYSTEM Calculated R [place] 26 degrees MUSE SYSTEM Calculated T [place] 27 degrees MUSE SYSTEM INTERPRETATION Normal sinus rhythm Normal ECG When compared with ECG of 21-NOV-2016 20:34, (unconfirmed) No significant change was found Confirmed by MD Walton Douglas ([id number]) on 11/22/2016 10:51:21 AM MUSE SYSTEM 11/22/2016 7:12 AM EDT 11/22/2016 10:51 AM EDT Roque Sanches MD ECG ORDERABLES Performing Organization Address City/[facility]/ZIP Co de Phone Number MUSE SYSTEM * (ABNORMAL) Lipid Panel (11/22/2016 3:58 AM EDT) Cholesterol, Total 125 <=239 mg/dL [facility] Triglyceride 171 <=199 mg/dL [facility] HDL Cholesterol 39(L) >=40 mg/dL [facility] LDL Cholesterol 52 <=190 mg/dL [facility] Cholesterol/HDL Ratio 3.2 ratio [facility] Lipid Interpretation See Note [facility] Comment: Lipid management should be guided by a patient? s ASCVD risk, goals and preferences. ACC/AHA Guidelines recommend high intensity statin if clinical ASCVD or LDL greater than or equal to 190 mg/dL. http://circ.ahajournals.org/content/early/.cir.7829577697.42201.7a Adults aged 40-75 with LDL 70-189 mg/dL should have their 10 year ASCVD risk estimated with the ACC/AHA ASCVD risk manufacturing cost estimator http://tools.acc.org/BLUCD-Uzjo-Qvowvqcrv/ Statin should be discussed if risk greater [...] In Lab Roque Sanches MD CHEMISTRY ORDERABLES [facility] [place] [address] * Cardiac Enzymes (11/22/2016 3:58 AM EDT) Troponin-T <0.03 <=0.03 ng/mL [facility] Comment: 0.03 ng/mL: Represents the 99th percentile upper reference limit for normals. >0.03 ng/mL: Elevated cardiac troponin T level indicative of myocardial damage. Diagnosis of acute, evolving or recent [place] requires a typical rise and gradual fall [...] consensus document of the Joint Society of Cardiology/[place] College of Cardiology Committee for the redefinition of myocardial infarction. ??Journal of the [place] College of Cardiology 2000; 36: 959-969] Creatine Kinase 50 0 - 200 unit/L [facility] Blood specimen (specimen) Venous Draw / Unknown 11/22/2016 3:58 AM EDT 11/22/2016 4:13 AM EDT Narrative Resulting Agency Comment Spec In Lab Roque Sanches MD CHEMISTRY ORDERABLES [facility] [place] [address] * Differential, Automated (11/22/2016 3:58 AM EDT) Neutrophil % 56.6 % [facility] Neutrophil Absolute 4.86 1.70 - 6.10 x10(3)/[facility] Lymph % 30.3 % [facility] Lymphocytes Abs 2.6 0.9 - 3.2 x10(3)/[facility] Monocyte % 7.7 % [facility] Monocyte Abs 0.7 0.3 - 0.9 x10(3)/[facility] Eos % 4.5 % [facility] Eosinophils Abs 0.4 0.0 - 0.4 x10(3)/[facility] Basophil % 0.6 % [facility] Baso Absolute 0.0 0.0 - 0.1 x10(3)/[facility] Immature Gran % 0.30 % [facility] Comment: Immature granulocytes(IG's)percentage and absolute count will include metamyelocytes, myelocytes, and promyelocytes. Blood smears from CBCs yielding IG's will be scanned manually for concordance. If this scan disagrees with the automated IG or if promyelocytes are noted, a manual differential will be performed. Immature Gran Absolute 0.03 0.00 - 0.04 x10(3)/[facility] Blood specimen (specimen) 11/22/2016 3:58 AM EDT 11/22/2016 4:13 AM EDT Narrative Resulting Agency Comment Spec In Lab Roque Sanches MD HEMATOLOGY ORDERABLE S Performing Organization Address City/State/[facility] Co de Phone Number [facility] [place] [address] * (ABNORMAL) Hemogram (11/22/2016 3:58 AM EDT) White Blood Cell 8.6 4.0 - 9.5 x10(3)/[facility] LABORATORY Red Blood Cell 4.80 4.58 - 5.54 x10(6)/[facility] LABORATORY Hemoglobin 13.8 13.7 - 16.5 gm/dL [facility] Hematocrit 41.9 40.5 - 48.5 % [facility] Mean Cell Volume 87.3 82.9 - 93.1 fL [facility] Mean Cell Hemoglobin 28.8 27.5 - 32.1 pg [facility] Mean Cell Hemoglobin Concentration 32.9 32.0 - 35.7 gm/dL [facility] Platelet 219 145 - 357 x10(3)/[facility] LABORATORY RDW Standard Deviation 44.7 36.0 - 45.0 fL [facility] RDW coefficient of variation 14.0(H) 11.4 - 13.8 % [facility] Mean Platelet Volume 10.9 7.6 - 12.9 fL [facility] NRBC% auto 0.0 % [facility] NRBC Absolute 0.000 0.000 - 0.000 x10(3)/mc L [facility] Blood specimen (specimen) 11/22/2016 3:58 AM EDT 11/22/2016 4:13 AM EDT Narrative Resulting Agency Comment Spec In Lab Roque Sanches MD HEMATOLOGY ORDERABLE S Performing Organization Address City/State/[facility] Co de Phone Number [facility] [place] [address] * (ABNORMAL) BMP w/fasting Glucose (11/22/2016 3:58 AM EDT) Glucose Fasting 127(H) 65 - 99 mg/dL [facility] Comment: ?Fasting* Glucose Interpretive [...] of Diabetes Mellitus, Position Statement from the [place] Diabetes Association. ??Diabetes Care, Volume 33, Supplement 1, Aug 2009 Blood Urea Nitrogen 10 10 - 20 mg/dL [facility] Creatinine 0.85 0.80 - 1.50 mg/dL [facility] Comment: Please note that the pediatric reference intervals supplied above were not validated at [facility]. Results from pediatric patients should be interpreted in conjunction to the patient's age, height and muscle mass. Sodium 142 135 - 145 mmol/L [facility] Potassium 3.3(L) 3.5 - 5.0 mmol/L [facility] Comment: Please note: ??Patients with WBC >100,000 may have falsely elevated Potassium levels. ??For accurate Potassium quantification in these patients send serum separator tube (gold top) for subsequent determinations. ??Contact the Clinical Chemistry Laboratory if there are any questions. Chloride 106 98 - 107 mmol/L [facility] Carbon Dioxide 21(L) 22 - 31 mmol/L [facility] Anion Gap 15 5 - 15 mmol/L [facility] Calcium 8.8 8.5 - 10.5 mg/dL [facility] Est Glomerular Filtration Rate >60 >=60 [facility] Comment: This estimated GFR [...] the following links into your internet browser. [email or web address] Blood specimen (specimen) 11/22/2016 3:58 AM EDT 11/22/2016 4:13 AM EDT Narrative Resulting Agency Comment Spec In Lab Roque Sanches MD CHEMISTRY ORDERABLES [facility] [place] [address] * (ABNORMAL) APTT (11/22/2016 3:58 AM EDT) [facility] Signature Partial Thromboplastin Time 44(H) 25 - 35 sec [facility] Comment: The recommended therapeutic range for full dose, unfractionated heparin at [facility] is 80 ? 114 seconds. The use of the anti-Xa (heparin) level rather than the PTT is recommended for monitoring anticoagulation intensity in critically ill patients receiving unfractionated heparin by continuous IV infusion. Blood specimen (specimen) 11/22/2016 3:58 AM EDT 11/22/2016 4:13 AM EDT Narrative Resulting Agency Comment Spec In Lab Drew Pepe MD HEMATOLOGY ORDERABLE S Performing Organization Address [facility] Co de Phone Number [facility] [place] [id number] * EKG 12 Lead (11/21/2016 8:34 PM EDT) Ventricular rate 72 BPM MUSE SYSTEM Atrial Rate 72 BPM MUSE SYSTEM P-R Interval 138 ms MUSE SYSTEM QRS Duration 86 ms MUSE SYSTEM Q-T Interval 382 ms MUSE SYSTEM QTC Calculated (Bezet) 418 ms MUSE SYSTEM Calculated P [place] -2 degrees MUSE SYSTEM Calculated R [place] 16 degrees MUSE SYSTEM Calculated T [place] 16 degrees MUSE SYSTEM INTERPRETATION Normal sinus rhythm Normal ECG When compared with ECG of 30-JUL-2013 08:41, No significant change was found Confirmed by MD Walton Douglas ([id number]) on 11/22/2016 10:49:32 AM MUSE SYSTEM 11/21/2016 8:34 PM EDT 11/22/2016 10:49 AM EDT Drew Pepe MD ECG ORDERABLES Performing Organization Address [facility] de Phone Number MUSE SYSTEM * Hemoglobin A1c (11/21/2016 8:32 PM EDT) Hemoglobin A1c 5.6 4.3 - 5.6 % [facility] Comment: Reference Range: 4.3 [...] Mellitus, Diabetes Care 2013; 36: Suppl. 1, J12-34 Estimated Average Glucose 114 mg/dL [facility] Comment: eAG equivalents for HbA1c percentages: HbA1c(%) ?eAG(mg/dL) 6.0 ?126 6.5 ?140 7.0 ?154 7.5 ?169 8.0 ?183 8.5 ?197 9.0 ?212 9.5 ?226 10.0 ? 240 Limitations: The eAG calculation has not been validated on women, individuals below 18 years old and above 70 years old, and individuals with hemoglobinopathies. Additional resources are available on the ADA website: [email or web address] Ashok PIMENTEL, Abdulkadir Tenorio, Jamie R, et al. ??Translating the A1C assay into estimated average glucose values. ??Diabetes Care 2008:31(8):8778-4573. Blood specimen (specimen) Venous Draw / Unknown 11/21/2016 8:32 PM EDT 11/22/2016 12:39 AM EDT Narrative Resulting Agency Comment Spec In Lab Drew Pepe MD CHEMISTRY ORDERABLES [facility] [place] [address] * TSH (11/21/2016 8:32 PM EDT) Thyroid Stimulating Hormone 2.29 0.27 - 4.20 mcIU/mL [facility] Blood specimen (specimen) Venous Draw / Unknown 11/21/2016 8:32 PM EDT 11/21/2016 8:40 PM EDT Narrative Resulting Agency Comment Spec In Lab Drew Pepe MD CHEMISTRY ORDERABLES Performing Organization Address City/[facility]/ZIP Co de Phone Number [facility] [place] [address] * (ABNORMAL) Differential, Automated (11/21/2016 8:32 PM EDT) Neutrophil % 38.3 % [facility] Neutrophil Absolute 3.02 1.70 - 6.10 x10(3)/ L [facility] Lymph % 48.7 % [facility] Lymphocytes Abs 3.8(H) 0.9 - 3.2 x10(3)/ L [facility] Monocyte % 7.3 % [facility] Monocyte Abs 0.6 0.3 - 0.9 x10(3)/ L [facility] Eos % 4.4 % [facility] Eosinophils Abs 0.4 0.0 - 0.4 x10(3)/[facility] LABORATORY Basophil % 0.9 % [facility] Baso Absolute 0.1 0.0 - 0.1 x10(3)/ L [facility] Immature Gran % 0.40 % [facility] Comment: Immature granulocytes(IG's)percentage and absolute count will include metamyelocytes, myelocytes, and promyelocytes. Blood smears from CBCs yielding IG's will be scanned manually for concordance. If this scan disagrees with the automated IG or if promyelocytes are noted, a manual differential will be performed. Immature Gran Absolute 0.03 0.00 - 0.04 x10(3)/mc L [facility] Blood specimen (specimen) 11/21/2016 8:32 PM EDT 11/21/2016 8:37 PM EDT Narrative Resulting Agency Comment Spec In Lab Drew Pepe MD HEMATOLOGY ORDERABLE S Performing Organization Address [facility]/ZIP Co de Phone Number [facility] [place] [address] * Hemogram (11/21/2016 8:32 PM EDT) Pathologist [facility] White Blood Cell 7.9 4.0 - 9.5 x10(3)/[facility] LABORATORY Red Blood Cell 4.64 4.58 - 5.54 x10(6)/[facility] LAB[facility]ORY Hemoglobin 13.9 13.7 - 16.5 gm/dL [facility] Hematocrit 40.6 40.5 - 48.5 % [facility] Mean Cell Volume 87.5 82.9 - 93.1 [facility] LABORATORY Mean Cell Hemoglobin 30.0 27.5 - 32.1 pg [facility] Mean Cell Hemoglobin Concentration 34.2 32.0 - 35.7 gm/dL [facility] Platelet 179 145 - 357 x10(3)/[facility] LABORATORY RDW Standard Deviation 44.3 36.0 - 45.0 [facility] LABORATORY RDW coefficient of variation 13.8 11.4 - 13.8 % [facility] Mean Platelet Volume 10.8 7.6 - 12.9 [facility] LABORATORY NRBC% auto 0.0 % [facility] NRBC Absolute 0.000 0.000 - 0.000 x10(3)/[facility] LAB[facility]ORY Blood specimen (specimen) 11/21/2016 8:32 PM EDT 11/21/2016 8:37 PM EDT Narrative Resulting Agency Comment Spec In Lab Drew Pepe MD HEMATOLOGY ORDERABLE S [facility] [place] [address] * Cardiac Enzymes (11/21/2016 8:32 PM EDT) Pathologist [facility] Troponin-T <0.03 <=0.03 ng/mL [facility] Comment: 0.03 ng/mL: Represents the 99th percentile upper reference limit for normals. >0.03 ng/mL: Elevated cardiac troponin T level indicative of myocardial damage. Diagnosis of acute, evolving or recent [place] requires a typical rise and gradual fall [...] consensus document of the Joint Society of Cardiology/[place] College of Cardiology Committee for the redefinition of myocardial infarction. ??Journal of the [place] College of Cardiology 2000; 36: 959-969] Creatine Kinase 64 0 - 200 unit/L [facility] Blood specimen (specimen) 11/21/2016 8:32 PM EDT 11/21/2016 8:37 PM EDT Narrative Resulting Agency Comment Spec In Lab Drew Pepe MD CHEMISTRY ORDERABLES Performing Organization Address City/[facility] Co de Phone Number [facility] [place] [address] * APTT (11/21/2016 8:32 PM EDT) [facility] Partial Thromboplastin Time 32 25 - 35 sec [facility] Comment: The recommended therapeutic range for full dose, unfractionated heparin at [facility] is 80 ? 114 seconds. The use of the anti-Xa (heparin) level rather than the PTT is recommended for monitoring anticoagulation intensity in critically ill patients receiving unfractionated heparin by continuous IV infusion. Blood specimen (specimen) 11/21/2016 8:32 PM EDT 11/21/2016 8:37 PM EDT Narrative Resulting Agency Comment Spec In Lab Drew Pepe MD HEMATOLOGY ORDERABLE S Performing Organization Address City/[facility]/ZIP Co de Phone Number [facility] [place] [address] * Prothrombin Time (11/21/2016 8:32 PM EDT) [facility] Prothrombin Time 14.0 12.0 - 15.0 sec [facility] Comment: An INR <2.0 [...] International Normalization Ratio 1.0 0.9 - 1.1 [facility] Blood specimen (specimen) 11/21/2016 8:32 PM EDT 11/21/2016 8:37 PM EDT Narrative Resulting Agency Comment Spec In Lab Drew Pepe MD HEMATOLOGY ORDERABLE S Performing Organization Address [facility] Co de Phone Number [facility] [place] [address] * Hepatic Function Panel (11/21/2016 8:32 PM EDT) Protein, Total 6.8 6.1 - 8.0 gm/dL [facility] Albumin 4.0 3.2 - 5.2 gm/dL [facility] Aspartate Aminotransferase 15 0 - 39 unit/L [facility] Alanine Aminotransferase 9 0 - 55 unit/L [facility] Alkaline Phosphatase 43 40 - 120 unit/L [facility] Bilirubin, Total 0.2 0.2 - 1.3 mg/dL [facility] Bilirubin, Direct <0.1 0.0 - 0.3 mg/dL [facility] Blood specimen (specimen) 11/21/2016 8:32 PM EDT 11/21/2016 8:37 PM EDT Narrative Resulting Agency Comment Spec In Lab Drew Pepe MD CHEMISTRY ORDERABLES Performing Organization Address [facility] Co de Phone Number [facility] [place] [address] * (ABNORMAL) Basic Metabolic Panel (non-fasting) (11/21/2016 8:32 PM EDT) Glucose 84 65 - 199 mg/dL [facility] Comment:Diabetes: >=200 mg/d L plus symptoms Blood Urea Nitrogen 10 10 - 20 mg/dL [facility] Creatinine 0.95 0.80 - 1.50 mg/dL [facility] Comment: Please note that the pediatric reference intervals supplied above were not validated at [facility]. Results from pediatric patients should be interpreted in conjunction to the patient's age, height and muscle mass. Sodium 145 135 - 145 mmol/L [facility] Potassium 3.5 3.5 - 5.0 mmol/L [facility] Comment: Please note: ??Patients with WBC >100,000 may have falsely elevated Potassium levels. ??For accurate Potassium quantification in these patients send serum separator tube (gold top) for subsequent determinations. ??Contact the Clinical Chemistry Laboratory if there are any questions. Chloride 105 98 - 107 mmol/L [facility] Carbon Dioxide 19(L) 22 - 31 mmol/L [facility] Anion Gap 21(H) 5 - 15 mmol/L [facility] Calcium 9.2 8.5 - 10.5 mg/dL [facility] Est Glomerular Filtration Rate >60 >=60 [facility] Comment: This estimated GFR [...] the following links into your internet browser. [email or web address] Blood specimen (specimen) 11/21/2016 8:32 PM EDT 11/21/2016 8:37 PM EDT Narrative Resulting Agency Comment Spec In Lab Drew Pepe MD CHEMISTRY ORDERABLES [facility] [place] [address] * pro-Brain Natriuretic Peptide (11/21/2016 8:32 PM EDT) NT-proBNP 65 <=125 pg/mL [facility] Blood specimen (specimen) 11/21/2016 8:32 PM EDT 11/21/2016 8:37 PM EDT Narrative Resulting Agency Comment Spec In Lab Drew Pepe MD CHEMISTRY ORDERABLES Performing Organization Address [facility] Co de Phone Number [facility] [place] [address] * POCT Glucose (11/21/2016 8:12 PM EDT) Glucose, POC 80 65 - 199 mg/dL [facility] Comment: Supplemental ranges: <140 mg/dL before meals <180 mg/dL all other times of the day Blood specimen (specimen) 11/21/2016 8:12 PM EDT 11/21/2016 8:12 PM EDT Valentín Oreilly MD POINT OF CARE TEST ORDERABLES Performing Organization Address City/[facility] Co de Phone Number [facility] [place] [address] documented in this encounter Visit Diagnoses Diagnosis Unstable angina- Primary Intermediate coronary syndrome Unstable angina Intermediate coronary syndrome DM (diabetes mellitus) Type II or unspecified type diabetes mellitus without mention of complication, not stated as uncontrolled CAD (coronary artery disease) Coronary atherosclerosis of unspecified type of vessel, [place] or graft HTN (hypertension) Unspecified essential hypertension [...] 0814 (Given - Provider: Esha Chen RN)181 ([facility] Hold - Provider: Admin Adt - Reason: Transfer to a Procedural area)1940 ([facility] Unhold - Provider: Admin Adt) 09 (Given - Provider: Venancio Bourgeois RN) atorvastatin (LIPITOR) tablet 80 mg 80 mg, Oral, EVERY EVENING, First dose on 11/22/16 at 1700, Until Discontinued, Routine 162 (Given - Provider: Esha Chen RN) 165 (Given - Provider: Esha Chen RN)1811 ([facility] Hold - Provider: Admin Adt - Reason: Transfer to a Procedural area)1940 ([facility] Unhold - Provider: Admin Adt) buPROPion (WELLBUTRIN SR or ZYBAN) SR tablet 150 mg 150 mg, Oral, 2 TIMES DAILY, First dose on 11/22/16 at 0030, Until Discontinued, DO NOT CRUSH OR OPEN, Routine 0803 (Given - Provider: Esha Chen RN)2058 (Given - Provider: Christy Medina RN) 0814 (Given - Provider: Esha Chen RN)1811 ([facility] Hold - Provider: Admin Adt - Reason: Transfer to a Procedural area)1940 ([facility] Unhold - Provider: Admin Adt)2107 (Given - Provider: Venice Huffman RN) 0900 (Given - Provider: Venancio Bourgeois RN) clopidogrel (PLAVIX) tablet 75 mg 75 mg, Oral, DAILY, First dose on 11/22/16 at 0900, Until Discontinued, Routine 0804 (Given - Provider: Esha Chen RN) 0815 (Given - Provider: Esha Chen RN)181 ([facility] Hold - Provider: Admin Adt - Reason: Transfer to a Procedural area)1940 ([facility] Unhold - Provider: Admin Adt) 0858 (Given [...] 0815 (Given - Provider: Esha Chen RN)1811 ([facility] Hold - Provider: Admin Adt - Reason: Transfer to a Procedural area)1940 ([facility] Unhold - Provider: Admin Adt)2107 (Given - [...] RN)1447 (Given - Provider: Esha Chen RN)1811 ([facility] Hold - Provider: Admin Adt - Reason: Transfer to a Procedural area)1940 ([facility] Unhold - Provider: Admin Adt) 0551 (Given - Provider: Venice Huffman, VERO) gabapentin (NEURONTIN) capsule 900 mg 900 mg, Oral, NIGHTLY, First dose on 11/22/16 at 0030, Until Discontinued, Routine 2058 (Given - Provider: Christy Medina RN) 1811 ([facility] Hold - Provider: Admin Adt - Reason: Transfer to a Procedural area)1940 ([facility] Unhold - Provider: Admin Adt)2142 (Given - [...] - Reason: Transfer to a Procedural area)1940 ([facility] Unhold - Provider: Admin Adt) 0857 (Given [...] 08 (Given - Provider: Esha Chen RN)1811 ([facility] Hold - Provider: Admin Adt - Reason: Transfer to a Procedural area)1940 ([facility] Unhold - Provider: Admin Adt)2107 (Given - Provider: Venice Huffman, VERO) 899 (Given - Provider: Venancio Bourgeois, VERO) pantoprazole (PROTONIX) tablet 40 mg 40 mg, Oral, DAILY, First dose on 11/22/16 at 0900, Until Discontinued, DO NOT CRUSH OR OPEN, Routine 08 (Given - Provider: Esha Chen RN) 08 (Given - Provider: Esha Chen RN)1811 ([facility] Hold - Provider: Admin Adt - Reason: Transfer to a Procedural area)1940 ([facility] Unhold - Provider: Admin Adt) 900 (Given - Provider: Venancio Bourgeois, VERO) pramipexole (MIRAPEX) tablet 0.5 mg 0.5 mg, Oral, NIGHTLY, First dose on 11/22/16 at 0030, Until Discontinued, Routine 2058 (Given - Provider: Christy Medina RN) 1811 ([facility] Hold - Provider: Admin Adt - Reason: Transfer to a Procedural area)1940 ([facility] Unhold - Provider: Admin Adt)2107 (Given - [...] Medina, VERO) 09 (Given - Provider: Esha hCen RN)1811 ([facility] Hold - Provider: Admin Adt [...] - Reason: Transfer to a Procedural area)1940 ([facility] Unhold - Provider: Admin Adt) cyclobenzaprine (FLEXERIL) tablet 10 mg 10 mg, Oral, 3 TIMES DAILY PRN, Starting on 11/22/16 at 0013, Until Thu11/25/16 at 1305, Muscle spasms, Routine 1811 ([facility] Hold - Provider: Admin Adt - Reason: Transfer to a Procedural area)1940 ([facility] Unhold - Provider: Admin Adt) dextrose 50% [...] duration of the active insulin., Routine 1811 ([facility] Hold - Provider: Admin Adt - Reason: Transfer to a Procedural area)1940 ([facility] Unhold - Provider: Admin Adt) fentaNYL 50 [...] of the active insulin. , Routine 1811 ([facility] Hold - Provider: Admin Adt - Reason: Transfer to a Procedural area)1940 ([facility] Unhold - Provider: Admin Adt) heparin (porcine) [...] (Given - Provider: Esha Chen RN) 1811 ([facility] Hold - Provider: Admin Adt - Reason: Transfer to a Procedural area)1940 ([facility] Unhold - Provider: Admin Adt) heparin (porcine) [...] for discomfort with PIV insertion, Routine 1811 ([facility] Hold - Provider: Admin Adt - Reason: Transfer to a Procedural area)1940 ([facility] Unhold - Provider: Admin Adt) midazolam (PF) [...] last 24 to 72 hours., Routine 1811 ([facility] Hold - Provider: Admin Adt - Reason: Transfer to a Procedural area)1940 ([facility] Unhold - Provider: Admin Adt) nitroGLYcerin 100 [...] (Given - Provider: Esha Chen RN) 1811 ([facility] Hold - Provider: Admin Adt - Reason: Transfer to a Procedural area)1940 ([facility] Unhold - Provider: Admin Adt) sodium chloride 0.9 % flush 5-20 mL 5-20 mL, Intravenous, EVERY 1 MIN PRN, Starting on 11/22/16 at 0013, Until 11/25/16 at 1305, flush, Flush pertains to all indwelling lines. Flush per protocol found in the job aid using the link provided on this medication record., Routine 1811 ([facility] Hold - Provider: Admin Adt - Reason: Transfer to a Procedural area)1940 ([facility] Unhold - Provider: Admin Adt) sodium chloride 0.9 % flush 5-20 mL 5-20 mL, Intravenous, EVERY 1 MIN PRN, Starting on Thu11/21/16 at 2010, Until Thu11/25/16 at 1305, flush, Flush pertains to all indwelling lines. Flush per protocol found in the job aid using the link provided on this medication record., Routine 1811 ([facility] Hold - Provider: Admin Adt - Reason: Transfer to a Procedural area)1940 ([facility] Unhold - Provider: Admin Adt) sodium chloride [...] Routine documented in this encounter Care Teams Radio Survey Worker Relationship Specialty Start Date End Date Coni Lim MD [address] [place] [address] PCP - General 07/16/10 documented as of this encounter
--- OUTSIDE RECORDS SUMMARY | 2024-05-17 16:09 | XMS_ITS | Encounter Summary ---
Author Organization [facility] [place] [address] Care Team Providers Care Fabric Worker Name Role Phone Coni Lim MD Primary Care Provider [phone] Encounter Details Date Type Department Care Team (Late st Contact Info) Description 08/25/2017 Telephone Cardiology at [address] [phone] Zarina Jiang Social History Tobacco Use Types [...] said that his stents were replaced in [facility] and he didn't feel he needed to be in the trial anymore. I asked the patient to complete the survey based on his chest pain and he refused. He withdrew from the study. documented in this encounter Plan of Treatment Not on file documented as of this encounter Visit Diagnoses Not on filedocumented in this encounter Care Teams Fabric Worker Relationship Specialty Start Date End Date Coni Lim MD [address] [place] [address] PCP - General 07/16/10 documented as of this encounter
--- OUTSIDE RECORDS SUMMARY | 2024-05-17 16:10 | XMS_ITS | Encounter Summary ---
Author Organization [facility] [place] [address] Care Team Providers Care Chief Controller Tower Name Role Phone Coni Lim MD Primary Care Provider [phone] Encounter Details Date Type Department Care Team (Late st Contact Info) Description 07/25/2015 Telephone Cardiology at [address] [phone] Yessy Pugh Social History Tobacco Use Types [...] a week. I havemade Aldair Patel, the sales service coordinator aware. documented in this encounter Plan of Treatment Not on file documented as of this encounter Visit Diagnoses Not on filedocumented in this encounter Care Teams Chief Controller Tower Relationship Specialty Start Date End Date Coni Lim MD [address] [place] [address] PCP - General 07/16/10 documented as of this encounter
--- OUTSIDE RECORDS SUMMARY | 2024-05-17 16:10 | XMS_ITS | Encounter Summary ---
Author Organization [facility] Address [facility] [place] [address] Care Team Providers Care Map And Chart Mounter Name Role Phone Coni Lim MD Primary Care Provider [phone] Encounter Details Date Type Department Care Team (Late st Contact Info) Description 06/04/2012 Orders Only Cardiology at [address] [phone] Antonio Rivas MD [facility] [place] [address] CAD (coronary artery disease) (Primary Dx) Social [...] Coronary atherosclerosis of unspecified type of vessel, tlingit & haida or graft documented in this encounter Care Teams Map And Chart Mounter Relationship Specialty Start Date End Date Coni Lim MD [address] [place], [place] [address] PCP - General 07/16/10 documented as of this encounter
--- OUTSIDE RECORDS SUMMARY | 2024-05-17 16:10 | XMS_ITS | Encounter Summary ---
Author Organization [facility] [address] Care Team Providers Care Tank Filler Name Role Phone Coni Lim MD Primary Care Provider [phone] Encounter Details Date Type Department Care Team (Late st Contact Info) Description 08/02/2015 Telephone Cardiology at [address] [phone] Destin Patel, RN Social History Tobacco Use [...] about his recent admission for stroke at [facility], for which he still has some memory issues. I stated that I would like to follow up at a later time point with him directly to ask about the course of his care related to the stroke admission. documented in this encounter Plan of Treatment Not on file documented as of this encounter Visit Diagnoses Not on filedocumented in this encounter Care Teams Tank Filler Relationship Specialty Start Date End Date Coni Lim MD [address] [place] [address] PCP - General 07/16/10 documented as of this encounter
--- OUTSIDE RECORDS SUMMARY | 2024-05-17 16:10 | XMS_ITS | Encounter Summary ---
Author Organization [facility] Address [facility] [address] Care Team Providers Care Cellophaner Name Role Phone Coni Lim MD Primary Care Provider Encounter Details Date Type Department Care Team (Late st Contact Info) Description 06/14/2012 Orders Only Cardiology at [address] [phone] Bryan Iverson MD [facility] CARDIOLOGY [place] [id number] Social History Tobacco Use Types Packs/Day Years [...] MD IM FILM LIBRARY ORD ERABLES RAD [address] [place] [address] documented in this encounter Visit Diagnoses Not on filedocumented in this encounter Care Teams Cellophaner Relationship Specialty Start Date End Date Coni Lim MD [address] [place] [address] PCP - General 07/16/10 documented as of this encounter
--- OUTSIDE RECORDS SUMMARY | 2024-05-17 16:10 | XMS_ITS | Encounter Summary ---
Author Organization [facility] [place] [address] Care Team Providers Care Farrowing Manager Name Role Phone Coni Lim MD Primary Care Provider [phone] Encounter Details Date Type Department Care Team (Late st Contact Info) Description 06/04/2012 [place] [address] Chester Pitts, RN Social History Tobacco Use [...] on filedocumented in this encounter Care Teams Farrowing Manager Relationship Specialty Start Date End Date Coni Lim MD [address] [place] [address] PCP - General 07/16/10 documented as of this encounter
--- OUTSIDE RECORDS SUMMARY | 2024-05-17 16:10 | XMS_ITS | Encounter Summary ---
Author Organization [facility] [place] [address] Care Team Providers Care Newspaper Correspondent Name Role Phone Coni Lim MD Primary Care Provider [phone] Encounter Details Date Type Department Care Team (Late st Contact Info) Description 11/17/2013 Abstract Cardiology at [address] [phone] Anastasiya Paulino, RN Social History Tobacco Use [...] on filedocumented in this encounter Care Teams Newspaper Correspondent Relationship Specialty Start Date End Date Coni Lim MD [address] [place] [address] PCP - General 07/16/10 documented as of this encounter
--- OUTSIDE RECORDS SUMMARY | 2024-05-17 16:10 | XMS_ITS | Encounter Summary ---
Author Organization Formerly [facility] Address [facility] [place] [address] Care Team Providers Care Care Management Associate Name Role Phone Sarita Lim MD Primary Care Provider [phone] Encounter Details Date Type Department Care Team (Latest Contact Info) Description 06/14/2012 1:39 PM EDT - 06/15/2012 6:03 PM EDT Hospital Encounter Inter[place] [id number] Bryan Iverson MD [facility] [place] [address] Chest pain; GERD (gastroesophageal reflux disease); HTN [...] appointments: During 8am-5pm Thursday through Thursday call [phone] to speak with a nurse in the cardiology clinic All other times call [phone] and ask to speak to the psychologist engineering monotype machinist. Return to work: As tolerated Driving: As tolerated Follow up Appointments: PCP SARITA LIM MD June 22, 2012 at 11:15 [address] Leyva June 17, 2012 at 9:40 am Home oxygen therapy: N/A Arrangements for VNA/home care: none Pain clinic phone number for referral [phone] * Attachments The following attachments cannot be sent through Care Everywhere. * CHEST PAIN (ANG[place]): AFTER YOUR VISIT ([place]TH KORE[place]) documented in this encounter Medications at Time [...] Progress Note Patient Name: Romeo Coe Service: RIBBON CUTTER / PA Responsible Attending: Dr. Iverson Reason for continued hospitalization: Evaluation and management of chest pain, myocardial infarction excluded by enzymes Active Problems: Active Hospital Problems Diagnoses ??? Chest pain ??? Dyslipidemia ??? GERD (gastroesophageal reflux disease) ??? HTN (hypertension) ??? DM (diabetes mellitus) ??? Smoker ??? CAD (coronary artery disease), non-obstructive - [facility] 2009 post abnormal nuc stress +IW, EF [...] ??? DISCONTD: sodium chloride 0.9% Stopped (06/15/12 6626) ??? DISCONTD: heparin 1,650 Units/hr (06/15/12 0315) [...] rhythm with no acute change Assessment: Romeo oCe is a 47 y.o. male who has a recent history of coronary stents. Chest pain yesterday during echo showed no wall motion abnormality. ECG without change. Ruled out for DE despite having over 6 hours of pain. Chest pain responsive to nitrates and to morphine yesterday. Pain free this morning. This afternoon, chest pain lying in bed 5/10. ECG unchanged. Responsive to nitroglycerin. Barium swallow cancelled due to barium shortage. Will schedule as an outpatient. Reviewed possibilities of chest pain. Ruled out for PE with negative D dimer yesterday at [facility]. No effusion on echo. CXR negative for widened mediastinum. Hepatic labs normal. No gallbladder. Ruled out for DE and no cardiac enzymes or objective evidence of ischemia seen. Patient has history of fibromyalgia managed by cymbalta. Will increase nitrate dosing and consult pain service. Plan: Chest pain Non cardiac, ruled out for DE, echo showed no WMA ? Esophageal spasm [...] ??? CAD (coronary artery disease), non-obstructive - [facility] 2009 post abnormal nuc stress +IW, EF [...] son's biological father. He wastransported to the [facility] ED where he was evaluated and released. [...] rehab and he was transferred to the [facility] ED where 3 moresl nitroglycerin tablets were given. He didn't have any relief with these nitroglycerin tablets. In the [facility] ED his ECG showed no change, negative d dimer and troponin. He was given IV lopressor which dropped his HR from 115 to 90, IV zofran 4 mg and IV ativan 0.[address] was done which is reported as negative. He was transferred to [facility] for further management. He arrives to [facility] with 6/10 chest pain and jaw [...] of Onset ??? Heart Attack Father 46 DE, CABG ??? Diabetes Mother ??? Hypertension Mother [...] son (age 18 months), daughter 11 in [place], [place]. Takes care of his mother who has dementia and he takes her to dialysis. is disabled. Has grown daughter who is 29 years old. 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 REVIEW OF SYSTEMS: Review of Systems Constitutional: [...] ECG change or elevated troponin found at [facility]. Chest pain has remained for 6 hours without relief, will check [facility] cardiac enzymes. ECG at [facility] unchanged fromECG at discharge 10 days ago. Will get echo with pain now to evaluate for wall motion abnormality. Will place on heparin gtt TREATMENT PLAN: Chest pain Will get echo with pain Start heparin gtt Cycle cardiac enzymes, 1st set at [facility] negative Non nitrate responsive CAD On aspirin, [...] Iverson Provider: SUSHMA WILCOX APRN Provider #: [id number] STAFF ADDENDUM Patient interviewed and examined. Medical [...] 06/16/2012 11:28 AM EDTAssociated Order(s): SCAN DOC: CURTAIN STRETCHER documented in this encounter Miscellaneous Notes * [...] questions, * Discharge Summary - Sushma Wilcox, [employer] CERTIFIED NETWORK PROFESSIONAL - 06/15/2012 9:53 AM EDT Images from [...] ??? CAD (coronary artery disease), non-obstructive - [facility] 2009 post abnormal nuc stress +IW, EF [...] son's biological father. He wastransported to the [facility] ED where he was evaluated and released. [...] rehab and he was transferred to the [facility] ED where 3 more sl nitroglycerin tablets were given. He didn't have any relief with these nitroglycerin tablets. In the [facility] ED his ECG showed no change, negative d dimer and troponin. He was given IV lopressor which dropped his HR from 115 to 90, IV zofran 4 mg and IV ativan 0.[address] was done which is reported as negative. He was transferred to [facility] for further management. He arrives to [facility] with 6/10 chest pain and jaw pain. He appears to be resting comfortably in bed. Hospital Course: Chest Pain, non cardiac The patient had ongoing pain on arrival to [facility], rated 5/10. Echo done at the time showed no wall motion abnormality and an EF of 65%. He had negative cardiac enzymes x 3 sets and heparin was stopped. Chest pain resolved with morphine. Overnight he had another episode of chest pain which was nitrate responsive. Chest pain from the following causes was excluded: Cardiac, pulmonary with normal d dimer at [facility] and CXR with only smoker's changes, no [...] meds needed now, [facility] Patient switched to plavix due [...] appointments: During 8am-5pm Thursday through Thursday call [phone] to speak with a nurse in the cardiology clinic All other times call [phone] and ask to speak to the psychologist engineering monotype machinist. Return to work: As tolerated Driving: As tolerated Follow up Appointments: PCP SARITA LIM MD June 22, 2012 at 11:15 [address] American [address] Leyva June 17, 2012 at 9:40 am Home oxygen therapy: N/A Arrangements for VNA/home care: none Pain clinic phone number for referral [phone] Provider Contact Information: SUSHMA WILCOX, [employer] CERTIFIED NETWORK PROFESSIONAL [phone] Discharge References/Attachments: Discharge References/Attachments None Signed: Sushma Wilcox, [employer] CERTIFIED NETWORK PROFESSIONAL 06/15/2012 * Miscellaneous - Provider, Scanning - 06/14/2012 9:38 PM EDT documented in this encounter Plan of Treatment Not on file documented as of this encounter Procedures Procedure Name Priority Date/Time Associated Diagnosis Comments CURTAIN STRETCHER SCAN 06/16/2012 11:28 AM EDT POCT GLUCOSE [...] 10:40 PM EDT Chest pain CARDIAC ENZYMES ([facility]) STAT 06/14/2012 8:55 PM EDT APTT STAT 06/14/2012 8:55 PM EDT XR CHEST PA AND LATERAL Routine 06/14/20 12 8:45 PM EDT POCT GLUCOSE Routine 06/14/2012 8:11 PM EDT POCT GLUCOSE Routine 06/14/2012 4:57 PM EDT ECHOCARDIOGRAM TRANSTHORACIC STAT 06/14/2012 4:00 PM EDT Chest pain BMP W/FASTING GLUCOSE STAT 06/14/2012 2:38 PM EDT DIFFERENTIAL, AUTOMATED STAT 06/14/20 12 2:38 PM EDT CARDIAC ENZYMES ([facility]) STAT 06/14/2012 2:38 PM EDT APTT STAT 06/14/2012 2:38 PM EDT PROTHROMBIN TIME STAT 06/14/2012 2:38 PM EDT CBC (WITH DIFF) STAT 06/14/2012 2:38 PM EDT EKG 12-LEAD STAT 06/14/2012 2:27 PM EDT Chest pain documented in this encounter Results * SCAN DOC: CURTAIN STRETCHER (06/16/2012 11:28 AM EDT) Anatomical Region Laterality Modality Other Narrative 06/16/2012 1:12 PM EDT Procedure Note Provider, Scanning - 06/16/2012 11:28 AM EDT Scanning Provider MEDIA MGR SCAN EXT O RDR/RSLT * POCT GLUCOSE (06/15/2012 5:48 PM EDT) Glucose, POC 138 60 - 199 mg/dL [facility] Comment: Supplemental ranges: <110 mg/dL before meals <200 mg/dL all other times of the day Blood specimen (specimen) 06/15/2012 5:48 PM EDT 06/15/2012 5:48 PM EDT Bryan Iverson MD POINT OF CARE TEST O RDERABLES Performing Organization Address [facility] Co de Phone Number [facility] * EKG 12 Lead (06/15/2012 12:40 PM EDT) Ventricular rate 91 BPM MUSE SYSTEM Atrial Rate 91 BPM MUSE SYSTEM P-R Interval 138 ms MUSE SYSTEM QRS Duration 82 ms MUSE SYSTEM Q-T Interval 328 ms MUSE SYSTEM QTC Calculated (Bezet) 403 ms MUSE SYSTEM Calculated P [place] 27 degrees MUSE SYSTEM Calculated R [place] 31 degrees MUSE SYSTEM Calculated T [place] 41 degrees MUSE SYSTEM INTERPRETATION Normal sinus rhythm Normal ECG When compared with ECG of 15-JUN-2012 07:17, No significant change was found Confirmed by MD Walton Douglas (57) on 06/15/2012 2:25:30 PM MUSE SYSTEM 06/15/2012 12:4 0 PM EDT 06/15/2012 2:25 PM EDT Bryan Iverson MD ECG ORDERABLES Performing Organization Address City/[facility]/ZIP Co de Phone Number MUSE SYSTEM * POCT GLUCOSE (06/15/2012 12:00 PM EDT) Glucose, POC 164 60 - 199 mg/dL [facility] Comment: Supplemental ranges: <110 mg/dL before meals <200 mg/dL all other times of the day Blood specimen (specimen) 06/15/2012 12:00 PM EDT 06/15/2012 12:00 PM EDT Bryan Iverson MD POINT OF CARE TEST O RDERAAIRAM Performing Organization Address [facility] de Phone Number [facility] * POCT GLUCOSE (06/15/2012 7:51 AM EDT) Pathologist [facility] Glucose, POC 166 60 - 199 mg/dL [facility] Comment: Supplemental ranges: <110 mg/dL before meals <200 mg/dL all other times of the day Blood specimen (specimen) 06/15/2012 7:51 AM EDT 06/15/2012 7:51 AM EDT Bryan Iverson MD POINT OF CARE TEST O RDERAAIRAM Performing Organization Address [facility] de Phone Number [facility] * (ABNORMAL) APTT (06/15/2012 7:35 AM EDT) Partial Thromboplastin Time 130(H) 25 - 35 sec [facility] Comment: Recommended therapeutic PTT range for full dose unfractionated heparin is 80-114 seconds. Blood specimen (specimen) 06/15/2012 7:35 AM EDT 06/15/2012 7:49 AM EDT Narrative Resulting Agency Comment Spec In Lab Bryan Iverson MD HEMATOLOGY ORDERABLE S Performing Organization Address [facility] Phone Number [facility] * EKG 12 Lead (06/15/2012 7:17 AM EDT) Ventricular rate 69 BPM MUSE SYSTEM Atrial Rate 69 BPM MUSE SYSTEM P-R Interval 148 ms MUSE SYSTEM QRS Duration 94 ms MUSE SYSTEM Q-T Interval 374 ms MUSE SYSTEM QTC Calculated (Bezet) 400 ms MUSE SYSTEM Calculated P [place] 20 degrees MUSE SYSTEM Calculated R [place] 35 degrees MUSE SYSTEM Calculated T [place] 36 degrees MUSE SYSTEM INTERPRETATION Normal sinus rhythm Normal ECG When compared with ECG of 14-JUN-2012 22:40, (unconfirmed) No significant change was found Confirmed by MD Walton Douglas (57) on 06/15/2012 9:36:33 AM MUSE SYSTEM 06/15/2012 7:17 AM EDT 06/15/2012 9:36 AM EDT Bryan Iverson MD ECG ORDERABLES Performing Organization Address [facility]/ZIP Co de Phone Number MUSE SYSTEM * CARDIAC ENZYMES (06/15/2012 2:08 AM EDT) Troponin-T <0.03 <=0.03 ng/mL [facility] [employer] Comment: 0.03 ng/mL: Represents the 99th percentile upper reference limit for normals. >0.03 ng/mL: Elevated cardiac troponin T level indicative of myocardial damage. Diagnosis of acute, evolving or recent DE requires a typical rise and gradual fall [...] consensus document of the Joint Society of Cardiology/[place] College of Cardiology Committee for the redefinition of myocardial infarction. Journal of the [place] College of Cardiology 2000; 36: 959-969] Creatine Kinase 52 0 - 200 unit/L [facility] Blood specimen (specimen) 06/15/2012 2:08 AM EDT 06/15/2012 2:28 AM EDT Narrative Resulting Agency Comment Spec In Lab Bryan Iverson MD CHEMISTRY ORDERABLES Performing Organization Address [facility]/ZIP Co de Phone Number [facility] [place] * (ABNORMAL) BMP w/fasting Glucose (06/15/2012 2:08 AM EDT) Glucose Fasting 125(H) 65 - 99 mg/dL [facility] [employer] Comment: ?Fasting* Glucose Interpretive Criteria Normal [...] intervals supplied above were not validated at [facility]. Results from pediatric patients should be interpreted [...] Iverson MD CHEMISTRY ORDERABLES Performing Organization Address [facility] Co de Phone Number [employer] * (ABNORMAL) APTT (06/15/2012 2:08 AM EDT) [facility] Signature Partial Thromboplastin Time 76(H) 25 - 35 sec [facility] [employer]CHANEL Comment: Recommended therapeutic PTT range for full dose unfractionated heparin is 80-114 seconds. Blood specimen (specimen) 06/15/2012 2:08 AM EDT 06/15/2012 2:28 AM EDT Narrative Resulting Agency Comment Spec In Lab Bryan Iverson MD HEMATOLOGY ORDERABLE S Performing Organization Address [facility] Co de Phone Number CERNER [...] Iverson MD CHEMISTRY ORDERABLES Performing Organization Address City/[facility] Co de Phone Number [facility]ANG CLEMENSIUM * TSH (06/15/2012 2:08 AM EDT) Thyroid Stimulating Hormone 1.62 0.27 - 4.20 mcIU/mL [facility] MILLENNIUM Blood specimen (specimen) 06/15/2012 2:08 AM EDT 06/15/2012 2:28 AM EDT Narrative Resulting Agency Comment Spec In Lab Bryan Iverson MD CHEMISTRY ORDERABLES Performing Organization Address City/[facility] Co de Phone Number CERANNABEL [...] MD HEMATOLOGY ORDERABLE S Performing Organization Address [facility] de Phone Number [facility] * EKG 12 Lead (06/14/2012 10:40 PM EDT) Pathologist [facility] Ventricular rate 87 BPM MUSE SYSTEM Atrial Rate 87 BPM MUSE SYSTEM P-R Interval 152 ms MUSE SYSTEM QRS Duration 90 ms MUSE SYSTEM Q-T Interval 356 ms MUSE SYSTEM QTC Calculated (Bezet) 428 ms MUSE SYSTEM Calculated P [place] 33 degrees MUSE SYSTEM Calculated R [place] 27 degrees MUSE SYSTEM Calculated T [place] 37 degrees MUSE SYSTEM INTERPRETATION Normal sinus rhythm Normal ECG When compared with ECG of 14-JUN-2012 14:27, No significant change was found Confirmed by MD Anton, Asif (57) on 06/15/2012 9:29:03 AM MUSE SYSTEM 06/14/2012 10:4 0 PM EDT 06/15/2012 9:29 AM EDT Bryan Iverson MD ECG ORDERABLES Performing Organization Address [facility] de Phone Number MUSE SYSTEM * Cardiac Enzymes (06/14/2012 8:55 PM EDT) Pathologist [facility] Troponin-T <0.03 <=0.03 ng/mL [facility] Comment: 0.03 ng/mL: Represents the 99th percentile upper reference limit for normals. >0.03 ng/mL: Elevated cardiac troponin T level indicative of myocardial damage. Diagnosis of acute, evolving or recent DE requires a typical rise and gradual fall [...] consensus document of the Joint Society of Cardiology/[place] College of Cardiology Committee for the redefinition of myocardial infarction. Journal of the [place] College of Cardiology 2000; 36: 959-969] Creatine Kinase 53 0 - 200 unit/L [facility] [email or web address] Blood specimen (specimen) 06/14/2012 8:55 PM EDT 06/14/2012 9:40 PM EDT Narrative Resulting Agency Comment Spec In Lab rByan Iverson MD CHEMISTRY ORDERABLES Performing Organization Address City/[facility]/ZIP Co de Phone Number [facility] [place] * APTT (06/14/2012 8:55 PM EDT) Partial Thromboplastin Time 33 25 - 35 sec [facility] [place] Comment: Recommended therapeutic PTT range for full dose unfractionated heparin is 80-114 seconds. Blood specimen (specimen) 06/14/2012 8:55 PM EDT 06/14/2012 9:40 PM EDT Narrative Resulting Agency Comment Spec In Lab Bryan Iverson MD HEMATOLOGY ORDERABLE S Performing Organization Address City/[facility]/ZIP Co de Phone Number [facility] [place] * XR chest routine PA & lateral (06/14/2012 8:45 PM EDT) Anatomical Region Laterality Modality Chest N/A Radiographic Shelly ging 06/14/2012 8:45 PM EDT Narrative 06/15/2012 9:18 AM EDT Examination CHEST ROUTINE 2 VIEWS Clinical History chest pain, + smoker, recent coronary stents Comparison Is made with the study of 06/14 247049 hours. Technique Findings Cardiomediastinal silhouette is normal. [...] Is made with the study of 06/14 368395 hours. Technique Findings Cardiomediastinal silhouette is normal. [...] Glucose, POC 207(H) 60 - 199 mg/dL [email or web address] Comment: Supplemental ranges: <110 mg/dL before meals <200 mg/dL all other times of the day Blood specimen (specimen) 06/14/2012 8:11 PM EDT 06/14/2012 8:11 PM EDT Bryan Iverson MD POINT OF CARE TEST O EVITA Performing Organization Address [facility] Co de Phone Number [facility] [place] * POCT GLUCOSE (06/14/2012 4:57 PM EDT) Glucose, POC 119 60 - 199 mg/dL [facility] [employer] Comment: Supplemental ranges: <110 mg/dL before meals <200 mg/dL all other times of the day Blood specimen (specimen) 06/14/2012 4:57 PM EDT 06/14/2012 4:57 PM EDT Bryan Iverson MD POINT OF CARE TEST O EVITA [facility] [place] * Echo Transthoracic (Complete) (06/14/2012 4:00 PM EDT) EF 65 [facility] SYSTEM Anatomical Region Laterality Modality Other 06/14/2012 Narrative 06/14/2012 4:26 PM EDT Amended Report Procedure: ? Transthoracic Echocardiogram Patient: ? LAQUITA Pop ?(Age): 1965(47) Med Rec#: ?[id number] ? Sex: ?M ? Site Loc: ?[facility] ? Ht / Wt: ??176(cm)/114(kg) Pt. Loc: ? Adult Floor ?BSA: ?2.36 Study Date: ?06/14/2012 ? Pt. Type: Inpatient Tape: ? Referring: Bryan Iverson ([id number]) Referring: STEPHANIE WILLIAM I Insulation Power Unit Tender: Juan Haley [facility] Diagnosis: ??Chest pain (786.50) CPT Code(s): ??Echo LTD (40937), ??Definity (39970IT), Indication(s): ??Chest Pain Rhythm: SUMMARY: 1. Technically [...] ? Mid-Inferior ?Normal ? Mid-Inferoseptal ?Normal ? [place]-Septal ? Normal ? [place]-Anterior ? Normal ? [place]-Lateral ?Normal ? [place]-Inferior ? Normal ? [place]-Tip ?Normal ? Chambers ?Value ?Units (Range) ? [...] 06/14/2012 16:26:31 Images reviewed and interpretation verified [facility] Cardiac Ultrasound Laboratory Procedure Note Cali Shannon MD - 06/14/2012 Amended Report Procedure: Transthoracic Echocardiogram Patient: LAQUITA Pop DOB(Age): 1965(47) Med Rec#: [id number] Sex: M Site Loc: [facility] Ht / Wt: 176(cm)/114(kg) Pt. Loc: Adult Floor BSA: 2.36 Study Date: 06/14/2012 Pt. Type: Inpatient Tape: Referring: Bryan IversonNatalie ([id number]) Referring: STEPHANIE IWLLIAM I Insulation Power Unit Tender: Juan Haley [facility] Diagnosis: Chest pain (786.50) CPT Code(s): Echo LTD (44623), Definity (38820DM), Indication(s): Chest Pain Rhythm: SUMMARY: 1. Technically [...] Normal Mid-Posterolateral Normal Mid-Inferior Normal Mid-Inferoseptal Normal [place]-Septal Normal [place]-Anterior Normal [place]-Lateral Normal [place]-Inferior Normal [place]-Tip Normal Chambers Value Units (Range) LV EF Est 65 % (55 to 80) IVSd 2D 0.9 cm LVIDd 2D 4.6 cm PWd 2D 1 cm LVIDs 2D 3.1 cm LVFS 2D 32 % This report has been electronically signed by: Cali Shannon MD 06/14/2012 16:26:31 Images reviewed and interpretation verified [facility] Cardiac Ultrasound Laboratory Bryan Iverson MD ECHO [...] Enzymes (06/14/2012 2:38 PM EDT) Pathologist [facility] Troponin-T <0.03 <=0.03 ng/mL [facility] [email or web address] Comment: 0.03 ng/mL: Represents the 99th percentile upper reference limit for normals. >0.03 ng/mL: Elevated cardiac troponin T level indicative of myocardial damage. Diagnosis of acute, evolving or recent DE requires a typical rise and gradual fall [...] consensus document of the Joint Society of Cardiology/[place] College of Cardiology Committee for the redefinition of myocardial infarction. Journal of the [place] College of Cardiology 2000; 36: 959-969] Creatine Kinase 48 0 - 200 unit/L [facility] [place] Blood specimen (specimen) 06/14/2012 2:38 PM EDT 06/14/2012 3:04 PM EDT Narrative Resulting Agency Comment Spec In Lab Bryan Iverson MD CHEMISTRY ORDERABLES Performing Organization Address [facility] Phone Number [facility] [place] * APTT (06/14/2012 2:38 PM EDT) Pathologist [facility] Partial Thromboplastin Time 26 25 - 35 sec [facility] JENSENScaled Inference Comment: Recommended therapeutic PTT range for full dose unfractionated heparin is 80-114 seconds. Blood specimen (specimen) 06/14/2012 2:38 PM EDT 06/14/2012 3:04 PM EDT Narrative Resulting Agency Comment Spec In Lab Bryan Iverson MD HEMATOLOGY ORDERABLE S Performing Organization Address [facility] Co de Phone Number [facility] [place] * Prothrombin Time (06/14/2012 2:38 PM EDT) Prothrombin Time 13.3 11.9 - 14.7 sec CERNER MILLENNIUM Comment: [facility] Transfusion Committee Guidelines: INR less than [...] BMP w/fasting Glucose (06/14/2012 2:38 PM EDT) [facility] Signature Glucose Fasting 117(H) 65 - [...] intervals supplied above were not validated at [facility]. Results from pediatric patients should be interpreted [...] Lab Bryan Iverson MD CHEMISTRY ORDERABLES [facility] * EKG 12 Lead (06/14/2012 2:27 PM EDT) Ventricular rate 91 BPM MUSE SYSTEM Atrial Rate 91 BPM MUSE SYSTEM P-R Interval 134 ms MUSE SYSTEM QRS Duration 84 ms MUSE SYSTEM Q-T Interval 348 ms MUSE SYSTEM QTC Calculated (Bezet) 428 ms MUSE SYSTEM Calculated P [place] 6 degrees MUSE SYSTEM Calculated R [place] 29 degrees MUSE SYSTEM Calculated T [place] 25 degrees MUSE SYSTEM INTERPRETATION Normal sinus [...] Coronary atherosclerosis of unspecified type of vessel, pilot point or graft Smoker Tobacco use disorder Dyslipidemia [...] than 145 sec X 2 - call senior data warehouse architect See Bolus dosing guidance for aPTT values [...] than 145 sec X 2 - call senior data warehouse architect See Bolus dosing guidance for aPTT values [...] Karishma Malagon RN - Comment: per MD monotype machinist, hold for now) PRN Medication Order 06/13/2012 [...] Routine documented in this encounter Care Teams Care Management Associate Relationship Specialty Start Date End Date Sarita Lim MD [address] [place] [address] PCP - General 07/16/10 documented as of this encounter
--- OUTSIDE RECORDS SUMMARY | 2024-05-17 16:10 | XMS_ITS | Encounter Summary ---
Author Organization [facility] Address [facility] [place] [address] Care Team Providers Care Chiller Technician Name Role Phone Coni Lim MD Primary Care Provider [phone] Reason for Visit * Auth/Cert Specialty Diagnoses / Procedures Referred By Ruby garvin Referred To Contact Diagnoses Unstable angina [place] Referral ID Status Reason Start Date Expiration Date Visits Re quested Visits Authorized [id number] 1 1 Encounter Details Date Type Department Care Team (Late st Contact Info) Description 11/24/2016 2:40 PM EDT - 11/24/2016 3:40 PM EDT [place] [address] Anton Horvath MD [facility] [place] [place] [address] CARDIAC CATHETERIZATION Social History Tobacco Use Types [...] Romeo Coelho Patient Age: 51 y.o. Language: Bermudian Race: White Ethnicity: Not nor Admit date: 11/21/2016 Discharge date and time: 11/25/2016 Attending Physician: Roque Sanches MD Discharge Physician: Roque Sanches MD Follow-up Recommendations for Providers: 1. Admitted with unstable angina. Drug-eluting stent RCA. 2. Requires dual antiplatelet therapy for 1 year 3. Smoking cessation Inpatient Provider Contact Information: Keisha Rose APRN [facility] [place] # [id number] Discharge Diagnoses (Hospital Problems) and Secondary Diagnoses (Chronic Problems): Active Hospital Problems Diagnosis ??? Unstable angina ??? CAD (coronary artery disease) -Coronary Angio 07/29/2013: 65% (FFR 0.74) mid LAD lesion s/p PCI with 3.5 X 18 mm [facility] - [facility] 2009 post abnormal nuc stress [...] stent restenosis addressed with LAD stentangioplasty at [facility] in January 2014), DM2, HTN, dyslipidemia, continued tobacco use, and obesity was transferred from [facility] [place] [facility] [place] further evaluation of [...] PF, Split 07/30/2013 ??? Influenza Vaccine (Novel) [id number], Injectable 05/24/2009 ??? Influenza Vaccine w/Preservative, Split [...] contact one of the cardiology nurses at [facility] during normal business hours(Thursday through Thursday, 8 AM to 5 PM) at . During nonbusiness hours (evenings, nights, weekends, holidays), you may contact the project construction manager music artist at . Return to work: -unemployed Driving: -No driving for 48 hours after catheterization. Follow up Appointments: ?? PCP: Coni Lim MD will see you on November 28, 2016 at 2:45 PM at [facility]. You may contact her office at [phone] with any questions or concerns ?? Cardiology: Please see Dr. Ling in [place], [place] on December 16 at 11:00 AM. His office may be contacted at with any questions or concerns. Home oxygen therapy: N/A Arrangements for VNA/home care: none Discharge References/Attachments None Keisha Rose APRN Nurse Practitioner-Department of Cardiology [email or web address] Pager [phone] Phone number: [phone] Fax number [phone] I have discussed this patient with attending [...] contact one of the cardiology nurses at [facility] during normal business hours(Thursday through Thursday, 8 AM to 5 PM) at . During nonbusiness hours (evenings, nights, weekends, holidays), you may contact the project construction manager music artist at . Return to work: -unemployed Driving: -No driving for 48 hours after catheterization. Follow up Appointments: ?? PCP: Coni Lim MD will see you on November 28, 2016 at 2:45 PM at [facility]. You may contact her office at [phone] with any questions or concerns ?? Cardiology: Please see Dr. Ling in [place], [place] on December 16 at 11:00 AM. [...] Nicotine Replacement Therapy , November 23, 2012: https://www.federalregister.gov/articles//2013-34827/modificati qpo-zh-enzigwdv-ti-smmspakt-qdrtozpnghv-eidxzte-akdwxpkg-dav-seyb-kea-edlveqy-hu man-use Nicotine lozenge instructions: Use the 4 [...] Nicotine Replacement Therapy , November 23, 2012: https://www.federalregister.gov/articles//2013-15542/modificati srf-mc-wkypuvxr-cb-pzwdpjit-tvzecsevvvw-mrbusvv-wuaiduqr-wap-ibzg-lfo-bbgfmxp-hu man-use Remember to cut down on regular coffee intake to no more than 2-3 eight ounce cups a day. Substitute decaf or herbal tea, water or any other non caffeine drink for regular coffee to avoid rising caffeine levels when you don't smoke. You have been referred to the [place] Quit[facility] and should expect to receive a phone call from them within the next several days. If you do not hear from them within one week of discharge please call them.The number is in the [facility] Tobacco Cessation folder you were given. Contact [...] Progress Note Patient Name: Romeo Coelho Service: MASH FILTER CLOTH CHANGER / PA Responsible Attending: Roque Sanches MD Reason for continued hospitalization: -discharge -smoking cessation consult Active Problems: Active Hospital Problems Diagnosis ??? Unstable angina ??? CAD (coronary artery disease) -Coronary Angio 07/29/2013: 65% (FFR 0.74) mid LAD lesion s/p PCI with 3.5 X 18 mm [facility] - [facility] 2009 post abnormal nuc stress [...] priority for the procedure was Urgent. The [facility] indication for the procedure was [...] restenosis addressed with LAD stent angioplasty at [facility] in January 2014, DM2, HTN, dyslipidemia, continued tobacco use, and obesity transferred [place] [facility] [place] further evaluation of unstable angina. Underwent Cardiac catheterization to day (11/24/16)-CI of RCA Comfortable overnight Smoking cessation consult Plan: 1. Unstable angina LAD and LCx disease defined at prior cardiac catheterizations (at [facility] [place] [facility]) Describes crescendo anginal symptoms which [...] Progress Note Patient Name: Romeo Coelho Service: MASH FILTER CLOTH CHANGER / PA Responsible Attending: Roque Sanches MD Reason for continued hospitalization: Evaluation and management of unstable angina; cardiac cath anticipated today (11/24/16) Active Problems: Active Hospital Problems Diagnosis ??? Unstable angina ??? CAD (coronary artery disease) -Coronary Angio 07/29/2013: 65% (FFR 0.74) mid LAD lesion s/p PCI with 3.5 X 18 mm [facility] - [facility] 2009 post abnormal nuc stress [...] restenosis addressed with LAD stent angioplasty at [facility] in January 2014, DM2, HTN, dyslipidemia, continued tobacco use, and obesity transferred to [facility] [place] further evaluation of unstable angina. Cardiac catheterization today ( 7). Plan: 1. Unstable angina LAD and LCx disease defined at prior cardiac catheterizations (at [facility] [place] [facility]) Describes crescendo anginal symptoms which [...] Progress Note Patient Name: Romeo Coelho Service: MASH FILTER CLOTH CHANGER / PA Responsible Attending: Roque Sanches MD Reason for continued hospitalization: Evaluation and management of unstable angina Active Problems: Active Hospital Problems Diagnosis ??? Unstable angina ??? CAD (coronary artery disease) -Coronary Angio 07/29/2013: 65% (FFR 0.74) mid LAD lesion s/p PCI with 3.5 X 18 mm [facility] 2009 post abnormal nuc stress [...] restenosis addressed with LAD stent angioplasty at [facility] in January 2014, DM2, HTN, dyslipidemia, continued tobacco use, and obesity transferred to [facility] [place] further evaluation of unstable angina. Cardiac catheterization anticipated tomorrow AM (11/24/16). Plan: 1. Unstable angina LAD and LCx disease defined at prior cardiac catheterizations (at [facility] [place] [facility]) Describes crescendo anginal symptoms which [...] Progress Note Patient Name: Romeo Coelho Service: MASH FILTER CLOTH CHANGER / PA Responsible Attending: Roque Sanches MD Reason for continued hospitalization: Evaluation and management of unstable angina Active Problems: Active Hospital Problems Diagnosis ??? Unstable angina ??? CAD (coronary artery disease) -Coronary Angio 07/29/2013: 65% (FFR 0.74) mid LAD lesion s/p PCI with 3.5 X 18 mm [facility] - [facility] 2009 post abnormal nuc stress [...] restenosis addressed with LAD stent angioplasty at [facility] in January 2014, DM2, HTN, dyslipidemia, continued tobacco use, and obesity transferred [place] [facility] [place] further evaluation of unstable angina. Cardiac catheterization anticipated soon. Plan: 1. Unstable angina LAD and LCx disease defined at prior cardiac catheterizations (at [facility] [place] [facility]) Describes crescendo anginal symptoms which [...] a 51 yr M ( Transferred from [place]) PMH of CAD - multiple PCIs in past, latest cath in January 2014 ( at [facility] ) JACINDA x2 to [...] in ED. Symptoms reminiscent of his prior ND / Unstable angina. Compliant with meds . [...] of Onset ??? Myocardial Infarction Father 46 [place], CABG ??? Diabetes Mother ??? Hypertension Mother [...] son (age 18 months), daughter 11 in [place], [place]. Takes care of his mother who has dementia and he takes her to dialysis. is disabled. Has grown daughter who is 29 years old. 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 Similar in character to prior ND / UA; Nitrate responsive. ECG : nsr [...] in the outpatient cardiac rehabilitation program at [place] was discussed. Patient agrees to a referral [...] of Onset ??? Myocardial Infarction Father 46 [place], CABG ??? Diabetes Mother ??? Hypertension Mother [...] his brain. TREATMENT PLAN/RECOMMENDATIONS: [X ] Provide [facility] Tobacco Cessation Packet Discuss [...] 8-end 1 mg PO BID Refer to [place] [employer] e-referral placed X Refer to [place] 802 Quits (fill out and fax enrollment [...] Follow up: with his PCP and the [place] quitline, 802QUITS Patient not ready to quit at this time. Follow up: X It is strongly recommended that the patient be discharged to home on Tobacco Treatment medication(s) as recommended above and follow up with either PCP and/or Quit line [id number]. X These recommendations have been discussed with the patient's primary team. 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 I've been disabled for five years due to Fibromyalgia and Arthritis. Home Environment: Lives with his , Dasia in [place], [place]. Social & Family Supports/Community Resources: Dasia Coelho (Spouse) [address] [facility] [phone] (H) [phone] (M) Behavioral Health History: Per pt report, [...] Coverage: Yes, has Silver Script. Preferred Pharmacy: [phone] - [place], [place] - [address] [place] [address] ? [address] [place] [phone] ? Not a 24 hour pharmacy; exact hours not known Other: None Primary Care Provider: Coni Lim MD [phone] Patient/Caregiver Goals of Treatment: To return home and to his normal activities. Potential Needs for Transition of Care: Rehab/SNF: Pt has never been a pt in a rehab setting. Home Health: [facility] in the past (after right knee surgery). DME: Cane at home (doesn't consistently use it). Dialysis: N/A Community Resources: None Transportation: I may need [facility] transportation. My car is in [facility] parking lot. I havethe only set of keys. Other: None Anticipated Barriers to Discharge/Special Considerations: No barriers noted at this time. Plan: A member of the Care Management team will continue to monitor progress, follow for continuity of care and assist with transition of care planning. SON MARLEY RN Pager: [phone] * Plan of Care - Christy Medina [...] Radiograph today, Echo and Cardiac Enzymes Pending Drawer In Hand ? Thursday more likely Thursday (pt. Informed) [...] ability. Romeo Weineroney was offered copies of [facility] publications; Are You a Hospital Inpatient or Outpatient?and Medicare Rights and Protections. Notice has been signed along with date and time, a copy of notice made and given to patient/escrow representative. Original notice to be scanned into [...] Procedure Name Priority Date/Time Associated Diagnosis Comments SUPERVISOR TITLE SCAN 11/26/2016 12:00 AM EDT POCT GLUCOSE Routine 11/25/2016 7:42 AM EDT EKG 12-LEAD Routine 11/25/2016 7:23 AM EDT Unstable angina BMP W/FASTING GLUCOSE Routine 11/25/2016 4:52 AM EDT HEMOGRAM Routine 11/25/2016 4:52 AM EDT DIFFERENTIAL, AUTOMATED Routine 11/26/19 4:52 AM EDT CARDIAC ENZYMES ([facility] Routine 11/25/2016 4:52 AM EDT CBC [...] Routine 11/22/2016 12:11 PM EDT CARDIAC ENZYMES ([facility] STAT 11/22/2016 10:06 AM [...] 11/23/19 17 3:58 AM EDT CARDIAC ENZYMES ([facility] Routine 11/22/2016 3:58 AM EDT APTT STAT 11/22/2016 3:58 AM EDT CBC (WITH DIFF) Routine 11/22/2016 3:58 AM EDT LIPID PANEL (REFLEX DIRECT LDL) Routine 11/22/2016 3:58 AM EDT EKG 12-LEAD STAT 11/21/2016 8:34 PM EDT Unstable angina HEMOGRAM STAT 11/21/2016 8:32 PM EDT DIFFERENTIAL, AUTOMATED STAT 11/22/19 17 8:32 PM EDT CARDIAC ENZYMES ([facility] STAT 11/21/2016 8:32 PM EDT APTT [...] in this encounter Results * SCAN DOC: SUPERVISOR TITLE (11/26/2016 12:00 AM EDT) Anatomical Region Laterality Modality Other Narrative 11/26/2016 12:00 AM EDT Ordered by an unspecified provider. Scanning Provider MEDIA MGR SCAN EXT O RDR/RSLT * POCT Glucose (11/25/2016 7:42 AM EDT) [facility] Glucose, POC 123 65 - 199 mg/dL [facility] Comment: Supplemental ranges: <140 mg/dL before meals <180 mg/dL all other times of the day Blood specimen (specimen) 11/25/2016 7:42 AM EDT 11/25/2016 7:42 AM EDT Roque Sanches MD POINT OF CARE TEST O RDERABLES Performing Organization Address [facility] Co de Phone Number [facility] [place] [address] * EKG 12 Lead (11/25/2016 7:23 AM EDT) Ventricular rate 70 BPM MUSE SYSTEM Atrial Rate 70 BPM MUSE SYSTEM P-R Interval 140 ms MUSE SYSTEM QRS Duration 88 ms MUSE SYSTEM Q-T Interval 388 ms MUSE SYSTEM QTC Calculated (Bezet) 419 ms MUSE SYSTEM Calculated P [place] 3 degrees MUSE SYSTEM Calculated R [place] 19 degrees MUSE SYSTEM Calculated T [place] 42 degrees MUSE SYSTEM INTERPRETATION Normal sinus rhythm Normal ECG When compared with ECG of 24-NOV-2016 19:05, (unconfirmed) No significant change was found I personally reviewed the tracing and edited the fellows interpretation Confirmed by fellow MD Kalin, Nessa Lee ([id number]) on 11/25/2016 10:44:22 AM Confirmed by MD Meli, Tigre ([id number]) on 11/25/2016 5:24:33 PM MUSE SYSTEM 11/25/2016 7:23 AM EDT 11/25/2016 5:24 PM EDT Roque Sanches MD ECG ORDERABLES Performing Organization Address [facility] Co de Phone Number MUSE SYSTEM * Cardiac Enzymes (11/25/2016 4:52 AM EDT) Troponin-T <0.03 <=0.03 ng/mL [facility] Comment: 0.03 ng/mL: Represents the 99th percentile upper reference limit for normals. >0.03 ng/mL: Elevated cardiac troponin T level indicative of myocardial damage. Diagnosis of acute, evolving or recent ND requires a typical rise and gradual fall [...] consensus document of the Joint Society of Cardiology/[place] College of Cardiology Committee for the redefinition of myocardial infarction. ??Journal of the [place] College of Cardiology 2000; 36: 959-969] Creatine Kinase 139 0 - 200 unit/L [facility] Comment:result rechecked-sb Blood specimen (specimen) Venous Draw / Unknown 11/25/2016 4:52 AM EDT 11/25/2016 5:41 AM EDT Narrative Resulting Agency Comment Spec In Lab Roque Sanches MD CHEMISTRY ORDERABLES [facility] [place] [address] * Differential, Automated (11/25/2016 4:52 AM EDT) Neutrophil % 61.6 % [facility] Neutrophil Absolute 5.56 1.70 - 6.10 x10(3)/[facility] Lymph % 26.8 % [facility] Lymphocytes Abs 2.4 0.9 - 3.2 x10(3)/[facility] Monocyte % 6.3 % [facility] Monocyte Abs 0.6 0.3 - 0.9 x10(3)/[facility] Eos % 4.1 % [facility] Eosinophils Abs 0.4 0.0 - 0.4 x10(3)/[facility] Basophil % 0.8 % [facility] Baso Absolute 0.1 0.0 - 0.1 x10(3)/[facility] Immature Gran % 0.40 % [facility] Comment: Immature granulocytes(IG's)percentage and absolute count will include metamyelocytes, myelocytes, and promyelocytes. Blood smears from CBCs yielding IG's will be scanned manually for concordance. If this scan disagrees with the automated IG or if promyelocytes are noted, a manual differential will be performed. Immature Gran Absolute 0.04 0.00 - 0.04 x10(3)/[facility] Blood specimen (specimen) 11/25/2016 4:52 AM EDT 11/25/2016 5:37 AM EDT Narrative Resulting Agency Comment Spec In Lab Roque Sanches MD HEMATOLOGY ORDERABLE S [facility] [place] [address] * (ABNORMAL) Hemogram (11/25/2016 4:52 AM EDT) White Blood Cell 9.0 4.0 - 9.5 x10(3)/[facility] LABORATORY Red Blood Cell 5.04 4.58 - 5.54 x10(6)/[facility] Hemoglobin 14.5 13.7 - 16.5 gm/dL [facility] Hematocrit 44.2 40.5 - 48.5 % [facility] Mean Cell Volume 87.7 82.9 - [address].1 [facility] Mean Cell Hemoglobin 28.8 27.5 - 32.1 pg [facility] Mean Cell Hemoglobin Concentration 32.8 32.0 - 35.7 gm/dL [facility] Platelet 214 145 - 357 x10(3)/[facility]ATORY RDW Standard Deviation 45.1(H) 36.0 - 45.0 [facility] RDW coefficient of variation 14.0(H) 11.4 - 13.8 % [facility] Mean Platelet Volume 11.1 7.6 - 12.9 [facility]ORATORY NRBC% auto 0.0 % [facility] NRBC Absolute 0.000 0.000 - 0.000 x10(3)/[facility] Blood specimen (specimen) 11/25/2016 4:52 AM EDT 11/25/2016 5:37 AM EDT Narrative Resulting Agency Comment Spec In Lab Roque Sanches MD HEMATOLOGY ORDERABLE S [facility] [place] [address] * (ABNORMAL) BMP w/fasting Glucose (11/25/2016 4:52 AM EDT) Glucose Fasting 113(H) 65 - 99 mg/dL [facility] Comment: ?Fasting* Glucose Interpretive Criteria [...] of Diabetes Mellitus, Position Statement from the [place] Diabetes Association. ??Diabetes Care, Volume 33, Supplement 1, Aug 2009 Blood Urea Nitrogen 10 10 - 20 mg/dL [facility] Creatinine 0.87 0.80 - 1.50 mg/dL [facility] Comment: Please note that the pediatric reference intervals supplied above were not validated at [facility]. Results from pediatric patients should be interpreted in conjunction to the patient's age, height and muscle mass. Sodium 142 135 - 145 mmol/L [facility] Potassium 3.9 3.5 - 5.0 mmol/L [facility] Comment: Please note: ??Patients with WBC >100,000 may have falsely elevated Potassium levels. ??For accurate Potassium quantification in these patients send serum separator tube (gold top) for subsequent determinations. ??Contact the Clinical Chemistry Laboratory if there are any questions. Chloride 108(H) 98 - 107 mmol/L [facility] Carbon Dioxide 19(L) 22 - 31 mmol/L [facility] Anion Gap 15 5 - 15 mmol/L [facility] Calcium 9.5 8.5 - 10.5 mg/dL [facility] Est Glomerular Filtration Rate >60 >=60 [facility] Comment: This estimated GFR (eGFR) [...] the following links into your internet browser. [email or web address] Blood specimen (specimen) 11/25/2016 4:52 AM EDT 11/25/2016 5:37 AM EDT Narrative Resulting Agency Comment Spec In Lab Roque Sanches MD CHEMISTRY ORDERABLES Performing Organization Address [facility] Co de Phone Number [facility] [place] [phone] * EKG 12 Lead (11/24/2016 7:05 PM EDT) Ventricular rate 85 BPM MUSE SYSTEM Atrial Rate 85 BPM MUSE SYSTEM P-R Interval 152 ms MUSE SYSTEM QRS Duration 86 ms MUSE SYSTEM Q-T Interval 354 ms MUSE SYSTEM QTC Calculated (Bezet) 421 ms MUSE SYSTEM Calculated P [place] 55 degrees MUSE SYSTEM Calculated R [place] 44 degrees MUSE SYSTEM Calculated T [place] 40 degrees MUSE SYSTEM INTERPRETATION Normal sinus rhythm Normal ECG When compared with ECG of 24-NOV-2016 07:20, No significant change was found Confirmed by Wale Mckeon MD ([id number]) on 11/25/2016 4:12:17 PM MUSE SYSTEM 11/24/2016 7:05 PM EDT 11/25/2016 4:12 PM EDT Roque Sanches MD ECG ORDERABLES Performing Organization Address [facility] Co de Phone Number MUSE SYSTEM * CARDIAC CATHETERIZATION (11/24/2016 6:04 PM EDT) Anatomical Region Laterality Modality Other Narrative 11/24/2016 6:23 PM EDT ?[facility] ? Cardiac Catheterization/Intervention Report ? Patient Name: Romeo Coelho. ? Procedure Date: 11/24/2016 ? A #: [id number] ? Primary Physician: Alexandru, Anton T ? Case #: [id number] ? File Name: [id number] ? Catheterization Order Number: [id number] ? [facility] ? Final Report [place], [place] ? Patient Name: ? Romeo Coelho ? ID#: ?[id number] ? : ?1965 ? Procedure Date: ? November 24, 2016 ?Case #: ? [id number] ? Room: ? 6 ? Case Physician: [...] presented with: unstable angina (w/i 60 days). [place] ?Cardiovascular Society angina class was III. This [...] medical regimen was changed as ?follows: Continue fci aspirin and plavix. ? Comments: ?Classic anginal [...] Procedure Note Anton Horvath MD - 11/25/2016 [facility] Cardiac Catheterization/Intervention Report Patient Name: Romeo Coelho Procedure Date: 11/24/2016 A #: [id number] Primary Physician: Anton Horvath Case #: [id number] File Name: [id number] Catheterization Order Number: [id number] [facility] FinalReport [place], [place] Patient Name: Romeo Coelho ID#:[id number] :1965 Procedure Date: November 24, 2016 Case [...] presented with: unstable angina (w/i 60 days). [place] [employer] Society angina class was III. This [...] time was 8.0 minutes, dose area product big419,294 mGYcm2 and air kerma was 1,689 mGY. [...] medical regimen was changed as follows: Continue fci aspirin and plavix. Comments: Classic anginal symptoms [...] Glucose, POC 88 65 - 199 mg/dL [facility] Comment: Supplemental ranges: <140 mg/dL before meals <180 mg/dL all other times of the day Blood specimen (specimen) 11/24/2016 4:27 PM EDT 11/24/2016 4:27 PM EDT Roque Sanches MD POINT OF CARE TEST O RDERABLES [facility] [place] [address] * POCT Glucose (11/24/2016 11:56 AM EDT) Glucose, POC 110 65 - 199 mg/dL [facility] Comment: Supplemental ranges: <140 mg/dL before meals <180 mg/dL all other times of the day Blood specimen (specimen) 11/24/2016 11:56 AM EDT 11/24/2016 11:56 AM EDT Roque Sanches MD POINT OF CARE TEST O RDERAAIRAM Performing Organization Address [facility] Co de Phone Number [facility] [place] [address] * POCT Glucose (11/24/2016 7:43 AM EDT) Glucose, POC 131 65 - 199 mg/dL [facility] Comment: Supplemental ranges: <140 mg/dL before meals <180 mg/dL all other times of the day Blood specimen (specimen) 11/24/2016 7:43 AM EDT 11/24/2016 7:43 AM EDT Roque Sanches MD POINT OF CARE TEST O RDERAAIRAM Performing Organization Address [facility] Co de Phone Number [facility] [place] [address] * EKG 12 Lead (11/24/2016 7:20 AM EDT) Ventricular rate 65 BPM MUSE SYSTEM Atrial Rate 65 BPM MUSE SYSTEM P-R Interval 158 ms MUSE SYSTEM QRS Duration 90 ms MUSE SYSTEM Q-T Interval 396 ms MUSE SYSTEM QTC Calculated (Bezet) 411 ms MUSE SYSTEM Calculated P [place] 51 degrees MUSE SYSTEM Calculated R [place] 26 degrees MUSE SYSTEM Calculated T [place] 24 degrees MUSE SYSTEM INTERPRETATION Normal sinus rhythm Normal ECG When compared with ECG of 23-NOV-2016 07:16, No significant change was found I personally reviewed the tracing and edited the fellows interpretation Confirmed by fellow MD Kalin, Nessa Lee ([id number]) on 11/24/2016 8:23:27 AM Confirmed by MD Margoth, Rajni ([id number]) on 11/24/2016 6:22:34 PM MUSE SYSTEM 11/24/2016 7:20 AM EDT 11/24/2016 6:22 PM EDT Roque Sanches MD ECG ORDERABLES Performing Organization Address [facility] Co de Phone Number MUSE SYSTEM * (ABNORMAL) Differential, Automated (11/24/2016 6:20 AM EDT) Neutrophil % 54.5 % [facility] Neutrophil Absolute 4.85 1.70 - 6.10 x10(3)/[facility] Lymph % 31.5 % [facility] Lymphocytes Abs 2.8 0.9 - 3.2 x10(3)/[facility] Monocyte % 8.1 % [facility] Monocyte Abs 0.7 0.3 - 0.9 x10(3)/[facility] Eos % 4.4 % [facility] Eosinophils Abs 0.4 0.0 - 0.4 x10(3)/[facility] Basophil % 0.9 % [facility] Baso Absolute 0.1 0.0 - 0.1 x10(3)/[facility]ORATORY Immature Gran % 0.60 % [facility] Comment: Immature granulocytes(IG's)percentage and absolute count will include metamyelocytes, myelocytes, and promyelocytes. Blood smears from CBCs yielding IG's will be scanned manually for concordance. If this scan disagrees with the automated IG or if promyelocytes are noted, a manual differential will be performed. Immature Gran Absolute 0.05(H) 0.00 - 0.04 x10(3)/[facility] LABORATORY Blood specimen (specimen) 11/24/2016 6:20 AM EDT 11/24/2016 6:34 AM EDT Narrative Resulting Agency Comment Spec In Lab Drew Pepe MD HEMATOLOGY ORDERABLE S [facility] [place] [address] * (ABNORMAL) Hemogram (11/24/2016 6:20 AM EDT) White Blood Cell 8.9 4.0 - 9.5 x10(3)/[facility] LABORATORY Red Blood Cell 4.93 4.58 - 5.54 x10(6)/[facility] Hemoglobin 14.7 13.7 - 16.5 gm/dL [facility] Hematocrit 43.2 40.5 - 48.5 % [facility] Mean Cell Volume 87.6 82.9 - 93.1 fL [facility] Mean Cell Hemoglobin 29.8 27.5 - 32.1 pg [facility] Mean Cell Hemoglobin Concentration 34.0 32.0 - 35.7 gm/dL [facility] Platelet 203 145 - 357 x10(3)/mc L [facility] RDW Standard Deviation 44.3 36.0 - 45.0 fL [facility] RDW coefficient of variation 13.9(H) 11.4 - 13.8 % [facility] Mean Platelet Volume 11.0 7.6 - 12.9 fL [facility] NRBC% auto 0.0 % [facility] NRBC Absolute 0.000 0.000 - 0.000 x10(3)/mc L [facility] Blood specimen (specimen) 11/24/2016 6:20 AM EDT 11/24/2016 6:34 AM EDT Narrative Resulting Agency Comment Spec In Lab Drew Pepe MD HEMATOLOGY ORDERABLE S [facility] [place] [address] * (ABNORMAL) APTT (11/24/2016 6:20 AM EDT) [facility] Partial Thromboplastin Time 110(H) 25 - 35 sec [facility] Comment: The recommended therapeutic range for full dose, unfractionated heparin [place] [facility] [place] is 80 ? 114 seconds. The use of the anti-Xa (heparin) level rather than the PTT is recommended for monitoring anticoagulation intensity in critically ill patients receiving unfractionated heparin by continuous IV infusion. Blood specimen (specimen) 11/24/2016 6:20 AM EDT 11/24/2016 6:34 AM EDT Narrative Resulting Agency Comment Spec In Lab Drew Pepe MD HEMATOLOGY ORDERABLE S Performing Organization Address [facility] Co de Phone Number [facility] [place] [address] * (ABNORMAL) APTT (11/23/2016 11:27 PM EDT) Partial Thromboplastin Time 130(H) 25 - 35 sec [facility] Comment: The recommended therapeutic range for full dose, unfractionated heparin at [facility] is 80 ? 114 seconds. The use of the anti-Xa (heparin) level rather than the PTT is recommended for monitoring anticoagulation intensity in critically ill patients receiving unfractionated heparin by continuous IV infusion. Blood specimen (specimen) 11/23/2016 11:27 PM EDT 11/23/2016 11:30 PM EDT Narrative Resulting Agency Comment Spec In Lab Drew Pepe MD HEMATOLOGY ORDERABLE S Performing Organization Address [facility] Co de Phone Number [facility] [place] [address] * POCT Glucose (11/23/2016 7:36 PM EDT) Glucose, POC 131 65 - 199 mg/dL [facility] Comment: Supplemental ranges: <140 mg/dL before meals <180 mg/dL all other times of the day Blood specimen (specimen) 11/23/2016 7:36 PM EDT 11/23/2016 7:36 PM EDT Roque Sanches MD POINT OF CARE TEST O RDERABLES Performing Organization Address [facility]/ZIP Co de Phone Number [facility] [place] [address] * POCT Glucose (11/23/2016 5:20 PM EDT) Glucose, POC 107 65 - 199 mg/dL [facility] Comment: Supplemental ranges: <140 mg/dL before meals <180 mg/dL all other times of the day Blood specimen (specimen) 11/23/2016 5:20 PM EDT 11/23/2016 5:20 PM EDT Roque Sanches MD POINT OF CARE TEST O EVITA Performing Organization Address [facility] Co de Phone Number [facility] [place] [address] * (ABNORMAL) APTT (11/23/2016 12:39 PM EDT) Partial Thromboplastin Time 68(H) 25 - 35 sec [facility] Comment: The recommended therapeutic range for full dose, unfractionated heparin at [facility] is 80 ? 114 [...] Address [facility] de Phone Number [facility] [place] [address] * POCT Glucose (11/23/2016 11:47 AM EDT) Glucose, POC 116 65 - 199 mg/dL [facility] Comment: Supplemental ranges: <140 mg/dL before meals <180 mg/dL all other times of the day Blood specimen (specimen) 11/23/2016 11:47 AM EDT 11/23/2016 11:47 AM EDT Roque Sanches MD POINT OF CARE TEST O EVITA Performing Organization Address [facility] Co de Phone Number [facility] [place] [address] * POCT Glucose (11/23/2016 7:36 AM EDT) Glucose, POC 122 65 - 199 mg/dL [facility] Comment: Supplemental ranges: <140 mg/dL before meals <180 mg/dL all other times of the day Blood specimen (specimen) 11/23/2016 7:36 AM EDT 11/23/2016 7:36 AM EDT Roque Sanches MD POINT OF CARE TEST O RDERABLES Performing Organization Address [facility] de Phone Number [facility] [place] [address] * EKG 12 Lead (11/23/2016 7:16 AM EDT) Ventricular rate 72 BPM MUSE SYSTEM Atrial Rate 72 BPM MUSE SYSTEM P-R Interval 158 ms MUSE SYSTEM QRS Duration 90 ms MUSE SYSTEM Q-T Interval 382 ms MUSE SYSTEM QTC Calculated (Bezet) 418 ms MUSE SYSTEM Calculated P [place] 47 degrees MUSE SYSTEM Calculated R [place] 28 degrees MUSE SYSTEM Calculated T [place] 32 degrees MUSE SYSTEM INTERPRETATION Normal sinus rhythm Normal ECG When compared with ECG of 22-NOV-2016 07:12, No significant change was found Confirmed by MD ANIVAL, DEBORAH ([id number]) on 11/23/2016 1:58:05 PM MUSE SYSTEM 11/23/2016 7:16 AM EDT 11/23/2016 1:58 PM EDT Roque Sanches MD ECG ORDERABLES Performing Organization Address [facility] de Phone Number MUSE SYSTEM * (ABNORMAL) BMP w/fasting Glucose (11/23/2016 6:24 AM EDT) Glucose Fasting 143(H) 65 - 99 mg/dL [facility] Comment: ?Fasting* Glucose Interpretive Criteria [...] of Diabetes Mellitus, Position Statement from the [place] [employer]. ??Diabetes Care, Volume 33, Supplement 1, Aug 2009 Blood Urea Nitrogen 10 10 - 20 mg/dL [facility] Creatinine 0.98 0.80 - 1.50 mg/dL [facility] Comment: Please note that the pediatric reference intervals supplied above were not validated at [facility] Results from pediatric patients should be interpreted in conjunction to the patient's age, height and muscle mass. Sodium 142 135 - 145 mmol/L [facility] Potassium 3.9 3.5 - 5.0 mmol/L [facility] Comment: Please note: ??Patients with WBC >100,000 may have falsely elevated Potassium levels. ??For accurate Potassium quantification in these patients send serum separator tube (gold top) for subsequent determinations. ??Contact the Clinical Chemistry Laboratory if there are any questions. Chloride 106 98 - 107 mmol/L [facility] Carbon Dioxide 20(L) 22 - 31 mmol/L [facility] Anion Gap 16(H) 5 - 15 mmol/L [facility] Calcium 9.6 8.5 - 10.5 mg/dL [facility] Est Glomerular Filtration Rate >60 >=60 [facility] Comment: This estimated GFR (eGFR) [...] the following links into your internet browser. [email or web address] Blood specimen (specimen) 11/23/2016 6:24 AM EDT 11/23/2016 6:32 AM EDT Narrative Resulting Agency Comment Spec In Lab Roque Sanches MD CHEMISTRY ORDERABLES Performing Organization Address City/[facility]/ZIP Co de Phone Number [facility] [place] [address] * (ABNORMAL) APTT (11/23/2016 6:24 AM EDT) [facility] Partial Thromboplastin Time 103(H) 25 - 35 sec [facility] Comment: The recommended therapeutic range for full dose, unfractionated heparin at [facility] is 80 ? 114 seconds. The use of the anti-Xa (heparin) level rather than the PTT is recommended for monitoring anticoagulation intensity in critically ill patients receiving unfractionated heparin by continuous IV infusion. Blood specimen (specimen) 11/23/2016 6:24 AM EDT 11/23/2016 6:32 AM EDT Narrative Resulting Agency Comment Spec In Lab Drew Pepe MD HEMATOLOGY ORDERABLE S Performing Organization Address [facility]/ZIP Co de Phone Number [facility] [place] [address] * Differential, Automated (11/23/2016 6:24 AM EDT) [facility] Neutrophil % 58.2 % [facility] Neutrophil Absolute 4.63 1.70 - 6.10 x10(3)/[facility] LABORATORY Lymph % 29.0 % [facility] Lymphocytes Abs 2.3 0.9 - 3.2 x10(3)/[facility]ORATORY Monocyte % 7.3 % [facility] Monocyte Abs 0.6 0.3 - 0.9 x10(3)/[facility]ORATORY Eos % 4.1 % [facility] Eosinophils Abs 0.3 0.0 - 0.4 x10(3)/[facility]ATORY Basophil % 1.0 % [facility] Baso Absolute 0.1 0.0 - 0.1 x10(3)/[facility]ATORY Immature Gran % 0.40 % [facility] Comment: Immature granulocytes(IG's)percentage and absolute count will include metamyelocytes, myelocytes, and promyelocytes. Blood smears from CBCs yielding IG's will be scanned manually for concordance. If this scan disagrees with the automated IG or if promyelocytes are noted, a manual differential will be performed. Immature Gran Absolute 0.03 0.00 - 0.04 x10(3)/mcL [facility] Blood specimen (specimen) 11/23/2016 6:24 AM EDT 11/23/2016 6:32 AM EDT Narrative Resulting Agency Comment Spec In Lab Drew Pepe MD HEMATOLOGY ORDERABLE S [facility] [place] [address] * (ABNORMAL) Hemogram (11/23/2016 6:24 AM EDT) White Blood Cell 8.0 4.0 - 9.5 x10(3)/mc L [facility] Red Blood Cell 5.00 4.58 - 5.54 x10(6)/mc L [facility] Hemoglobin 14.5 13.7 - 16.5 gm/dL [facility] Hematocrit 43.1 40.5 - 48.5 % [facility] Mean Cell Volume 86.2 82.9 - 93.1 fL [facility] Mean Cell Hemoglobin 29.0 27.5 - 32.1 pg [facility] Mean Cell Hemoglobin Concentration 33.6 32.0 - 35.7 gm/dL [facility] Platelet 207 145 - 357 x10(3)/mc L [facility] RDW Standard Deviation 44.5 36.0 - 45.0 [facility] LABORATORY RDW coefficient of variation 14.0(H) 11.4 - 13.8 % [facility] Mean Platelet Volume 10.4 7.6 - 12.9 fL [facility] NRBC% auto 0.0 % [facility] NRBC Absolute 0.000 0.000 - 0.000 x10(3)/mc L [facility] Blood specimen (specimen) 11/23/2016 6:24 AM EDT 11/23/2016 6:32 AM EDT Narrative Resulting Agency Comment Spec In Lab Drew Pepe MD HEMATOLOGY ORDERABLE S Performing Organization Address [facility]/ZIP Co de Phone Number [facility] [place] [address] * (ABNORMAL) APTT (11/23/2016 12:03 AM EDT) Partial Thromboplastin Time 116(H) 25 - 35 sec [facility] Comment: The recommended therapeutic range for full dose, unfractionated heparin at [facility] is 80 ? 114 seconds. The use of the anti-Xa (heparin) level rather than the PTT is recommended for monitoring anticoagulation intensity in critically ill patients receiving unfractionated heparin by continuous IV infusion. Blood specimen (specimen) 11/23/2016 12:03 AM EDT 11/23/2016 12:07 AM EDT Narrative Resulting Agency Comment Spec In Lab Drew Pepe MD HEMATOLOGY ORDERABLE S Performing Organization Address [facility] Co de Phone Number [facility] [place] [address] * POCT Glucose (11/22/2016 7:45 PM EDT) Glucose, POC 102 65 - 199 mg/dL [facility] Comment: Supplemental ranges: <140 mg/dL before meals <180 mg/dL all other times of the day Blood specimen (specimen) 11/22/2016 7:45 PM EDT 11/22/2016 7:45 PM EDT Roque Sanches MD POINT OF CARE TEST O RDERABLES Performing Organization Address [facility] Co de Phone Number [facility] [place] [address] * Cardiac Enzymes (11/22/2016 5:11 PM EDT) [facility] Troponin-T <0.03 <=0.03 ng/mL [facility] Comment: 0.03 ng/mL: Represents the 99th percentile upper reference limit for normals. >0.03 ng/mL: Elevated cardiac troponin T level indicative of myocardial damage. Diagnosis of acute, evolving or recent ND requires a typical rise and gradual fall [...] consensus document of the Joint Society of Cardiology/[place] [employer] Committee for the redefinition of myocardial infarction. ??Journal of the [place] College [employer]iology 2000; 36: 959-969] Creatine Kinase 46 0 - 200 unit/L [facility] Blood specimen (specimen) 11/22/2016 5:11 PM EDT 11/22/2016 5:15 PM EDT Narrative Resulting Agency Comment Spec In Lab Roque Sanches MD CHEMISTRY ORDERABLES [facility] [place] [address] * (ABNORMAL) APTT (11/22/2016 5:11 PM EDT) [facility] Partial Thromboplastin Time 76(H) 25 - 35 sec [facility] Comment: The recommended therapeutic range for full dose, unfractionated heparin at [facility] is 80 ? 114 seconds. The use of the anti-Xa (heparin) level rather than the PTT is recommended for monitoring anticoagulation intensity in critically ill patients receiving unfractionated heparin by continuous IV infusion. Blood specimen (specimen) 11/22/2016 5:11 PM EDT 11/22/2016 5:15 PM EDT Narrative Resulting Agency Comment Spec In Lab Drew Pepe MD HEMATOLOGY ORDERABLE S Performing Organization Address [facility] Co de Phone Number [facility] [place] [address] * POCT Glucose (11/22/2016 4:50 PM EDT) Glucose, POC 100 65 - 199 mg/dL [facility] Comment: Supplemental ranges: <140 mg/dL before meals <180 mg/dL all other times of the day Blood specimen (specimen) 11/22/2016 4:50 PM EDT 11/22/2016 4:50 PM EDT Roque Sanches MD POINT OF CARE TEST O RDERABLES Performing Organization Address [facility] Co de Phone Number [facility] [place] [address] * ECHO COMPLETE W CONTRAST (11/22/2016 12:59 PM EDT) EF 60 [facility] SYSTEM Anatomical Region Laterality Modality Other 11/22/2016 Narrative 11/22/2016 1:38 PM EDT Procedure: ?Transthoracic Echocardiogram Patient: ?COELHOCOLE DOHERTY A ? (Age): 1965(51y) Med Rec#: ? [id number] ?Sex: ?M ? [place] Loc[place] ? [facility] [place] ?Ht / Wt: ??178(cm)/95(kg) Pt. Loc: ?Adult Floor ? BSA: ?2.13 Study Date: ?? 11/22/2016 ?Pt. Type: Inpatient Tape: ? Referring: Roque Sanches ([id number]) Reading: Roque Sanches ([id number]) Seed Cleaning Manager: Jorge A Street Diagnosis: *ICD-10-PCS Unstable angina (I20.0) CPT Codes: *Echo Full (40064) *Spectral Doppler (52751) *Color Doppler (59674) *Optison ([id number]) Rhythm: ? Sinus BP: ? 113/70 SUMMARY: [...] E-wave Vmax ?0.5 ?m/sec ? MV deceleration [id number] ?msec ? MV A-wave Vmax ?0.4 ?m/sec [...] ? Mid-Inferior ?Normal ? Mid-Inferoseptal ?Normal ? [place]-Septal ? Normal ? [place]-Anterior ? Normal ? [place]-Lateral ?Normal ? [place]-Inferior ? Normal ? [place]-Tip ?Normal ? This report has been electronically signed by: Roque Sanches M.D. ? 11/22/2016 13:38:29 Images reviewed and interpretation verified [facility] Procedure Note Roque Sanches MD - 11/22/2016 Procedure: Transthoracic Echocardiogram Patient: LAQUITA HARRIS(Age): 1965(51y) Med Rec#: [id number] Sex: M [place] Loc[place] [facility] [place] Ht / Wt: 178(cm)/95(kg) Pt. Loc: Adult Floor BSA: 2.13 Study Date: 11/22/2016 Pt. Type: Inpatient Tape: Referring: Roque Sanches ([id number]) Reading: Roque Sanches () Seed Cleaning Manager: Jorge A Street Diagnosis: *ICD-10-PCS Unstable angina (I20.0) CPT Codes: *Echo Full (34491) *Spectral Doppler (10855) *Color Doppler (04235) *Optison ([id number]) Rhythm: Sinus BP: 113/70 SUMMARY: 1. The [...] MV E-wave Vmax 0.5 m/sec MV deceleration [id number] msec MV A-wave Vmax 0.4 m/sec MV [...] Hypokinetic Mid-Posterolateral Hypokinetic Mid-Inferior Normal Mid-Inferoseptal Normal [place]ella-Septal Normal [place]-Anterior Normal [place]-Lateral Normal [place]-Inferior Normal [place]-Tip Normal This report has been electronically signed by: Roque Sanches M.D. 11/22/2016 13:38:29 Images reviewed and interpretation verified [facility] Drew Pepe MD ECHO ORDERABLES * POCT Glucose (11/22/2016 12:11 PM EDT) Glucose, POC 94 65 - 199 mg/dL [facility] Comment: Supplemental ranges: <140 mg/dL before meals <180 mg/dL all other times of the day Blood specimen (specimen) 11/22/2016 12:11 PM EDT 11/22/2016 12:11 PM EDT Roque Sanches MD POINT OF CARE TEST O RDERABLES [facility] [place] [address] * Potassium (11/22/2016 10:06 AM EDT) Potassium 3.8 3.5 - 5.0 mmol/L [facility] Comment: Please note: ??Patients with [...] In Lab Drew Pepe MD CHEMISTRY ORDERABLES [facility] [place] [address] * Cardiac Enzymes (11/22/2016 10:06 AM EDT) Pathologist [facility] Troponin-T <0.03 <=0.03 ng/mL [facility] Comment: 0.03 ng/mL: Represents the 99th percentile upper reference limit for normals. >0.03 ng/mL: Elevated cardiac troponin T level indicative of myocardial damage. Diagnosis of acute, evolving or recent ND requires a typical rise and gradual fall [...] consensus document of the Joint Society of Cardiology/[place] [employer]iology Committee for the redefinition of myocardial infarction. ??Journal of the [place] College [employer]iology 2000; 36: 959-969] Creatine Kinase 48 0 - 200 unit/L [facility] Blood specimen (specimen) 11/22/2016 10:06 AM EDT 11/22/2016 10:16 AM EDT Narrative Resulting Agency Comment Spec In Lab Drew Pepe MD CHEMISTRY ORDERABLES Performing Organization Address City/[facility]/ZIP Co de Phone Number [facility] [place] [address] * (ABNORMAL) APTT (11/22/2016 10:06 AM EDT) [facility] Signature Partial Thromboplastin Time 104(H) 25 - 35 sec [facility] Comment: The recommended therapeutic range for full dose, unfractionated heparin at [facility] [place] is 80 ? 114 seconds. The use of the anti-Xa (heparin) level rather than the PTT is recommended for monitoring anticoagulation intensity in critically ill patients receiving unfractionated heparin by continuous IV infusion. Blood specimen (specimen) 11/22/2016 10:06 AM EDT 11/22/2016 10:16 AM EDT Narrative Resulting Agency Comment Spec In Lab Roque Sanches MD HEMATOLOGY ORDERABLE S Performing Organization Address [facility]/ZIP Co de Phone Number [facility] [place] [address] * XR Chest PA & Lateral (Generic) [...] Glucose, POC 135 65 - 199 mg/dL [facility] Comment: Supplemental ranges: <140 mg/dL before meals <180 mg/dL all other times of the day Blood specimen (specimen) 11/22/2016 7:44 AM EDT 11/22/2016 7:44 AM EDT Roque Sanches MD POINT OF CARE TEST O RDERABLES Performing Organization Address [facility] Co de Phone Number [facility] [place] [address] * EKG 12 Lead (11/22/2016 7:12 AM EDT) Ventricular rate 74 BPM MUSE SYSTEM Atrial Rate 74 BPM MUSE SYSTEM P-R Interval 146 ms MUSE SYSTEM QRS Duration 92 ms MUSE SYSTEM Q-T Interval 382 ms MUSE SYSTEM QTC Calculated (Bezet) 424 ms MUSE SYSTEM Calculated P [place] 34 degrees MUSE SYSTEM Calculated R [place] 26 degrees MUSE SYSTEM Calculated T [place] 27 degrees MUSE SYSTEM INTERPRETATION Normal sinus rhythm Normal ECG When compared with ECG of 21-NOV-2016 20:34, (unconfirmed) No significant change was found Confirmed by MD Anton, Asif (57) on 11/22/2016 10:51:21 AM MUSE SYSTEM 11/22/2016 7:12 AM EDT 11/22/2016 10:51 AM EDT Roque Sanches MD ECG ORDERABLES Performing Organization Address City/[facility]/ZIP Co de Phone Number MUSE SYSTEM * (ABNORMAL) Lipid Panel (11/22/2016 3:58 AM EDT) Cholesterol, Total 125 <=239 mg/dL [facility] Triglyceride 171 <=199 mg/dL [facility] HDL Cholesterol 39(L) >=40 mg/dL [facility] LDL Cholesterol 52 <=190 mg/dL [facility] Cholesterol/HDL Ratio 3.2 ratio [facility] Lipid Interpretation See Note [facility] Comment: Lipid management should be guided by a patient? s ASCVD risk, goals and preferences. ACC/AHA Guidelines recommend high intensity statin if clinical ASCVD or LDL greater than or equal to 190 mg/dL. http://circ.ahajournals.org/content/early/.cir.9581005549.46789.7a Adults aged 40-75 with LDL 70-189 mg/dL should have their 10 year ASCVD risk estimated with the ACC/AHA ASCVD risk production estimator http://tools.acc.org/IYMLJ-Futt-Akjxuuuyn/ Statin should be discussed if risk greater [...] In Lab Roque Sanches MD CHEMISTRY ORDERABLES [facility] [place] [address] * Cardiac Enzymes (11/22/2016 3:58 AM EDT) Troponin-T <0.03 <=0.03 ng/mL [facility] Comment: 0.03 ng/mL: Represents the 99th percentile upper reference limit for normals. >0.03 ng/mL: Elevated cardiac troponin T level indicative of myocardial damage. Diagnosis of acute, evolving or recent ND requires a typical rise and gradual fall [...] consensus document of the Joint Society of Cardiology/[place] College [employer] Cardiology Committee for the redefinition of myocardial infarction. ??Journal of the [place] College of Cardiology 2000; 36: 959-969] Creatine Kinase 50 0 - 200 unit/L [facility] Blood specimen (specimen) Venous Draw / Unknown 11/22/2016 3:58 AM EDT 11/22/2016 4:13 AM EDT Narrative Resulting Agency Comment Spec In Lab Roque Sanches MD CHEMISTRY ORDERABLES Performing Organization Address City/State/[facility] Co de Phone Number [facility] [place] [phone] * Differential, Automated (11/22/2016 3:58 AM EDT) Neutrophil % 56.6 % [facility] Neutrophil Absolute 4.86 1.70 - 6.10 x10(3)/[facility] LABORATORY Lymph % 30.3 % [facility] Lymphocytes Abs 2.6 0.9 - 3.2 x10(3)/[facility] LABORATORY Monocyte % 7.7 % [facility] Monocyte Abs 0.7 0.3 - 0.9 x10(3)/[facility] LABORATORY Eos % 4.5 % [facility] Eosinophils Abs 0.4 0.0 - 0.4 x10(3)/[facility] LABORATORY Basophil % 0.6 % [facility] Baso Absolute 0.0 0.0 - 0.1 x10(3)/[facility] LABORATORY Immature Gran % 0.30 % [facility] Comment: Immature granulocytes(IG's)percentage and absolute count will include metamyelocytes, myelocytes, and promyelocytes. Blood smears from CBCs yielding IG's will be scanned manually for concordance. If this scan disagrees with the automated IG or if promyelocytes are noted, a manual differential will be performed. Immature Gran Absolute 0.03 0.00 - 0.04 x10(3)/mcL [facility] Blood specimen (specimen) 11/22/2016 3:58 AM EDT 11/22/2016 4:13 AM EDT Narrative Resulting Agency Comment Spec In Lab Roque Sanches MD HEMATOLOGY ORDERABLE S [facility] [place] [address] * (ABNORMAL) Hemogram (11/22/2016 3:58 AM EDT) White Blood Cell 8.6 4.0 - 9.5 x10(3)/mc L [facility] Red Blood Cell 4.80 4.58 - 5.54 x10(6)/mc L [facility] Hemoglobin 13.8 13.7 - 16.5 gm/dL [facility] Hematocrit 41.9 40.5 - 48.5 % [facility] Mean Cell Volume 87.3 82.9 - 93.1 fL [facility] Mean Cell Hemoglobin 28.8 27.5 - 32.1 pg [facility] Mean Cell Hemoglobin Concentration 32.9 32.0 - 35.7 gm/dL [facility] Platelet 219 145 - 357 x10(3)/mc L [facility] RDW Standard Deviation 44.7 36.0 - 45.0 fL [facility] RDW coefficient of variation 14.0(H) 11.4 - 13.8 % [facility] Mean Platelet Volume 10.9 7.6 - 12.9 fL [facility] NRBC% auto 0.0 % [facility] NRBC Absolute 0.000 0.000 - 0.000 x10(3)/mc L [facility] Blood specimen (specimen) 11/22/2016 3:58 AM EDT 11/22/2016 4:13 AM EDT Narrative Resulting Agency Comment Spec In Lab Roque Sanches MD HEMATOLOGY ORDERABLE S [facility] [place] [address] * (ABNORMAL) BMP w/fasting Glucose (11/22/2016 3:58 AM EDT) Glucose Fasting 127(H) 65 - 99 mg/dL [facility] Comment: ?Fasting* Glucose Interpretive Criteria [...] of Diabetes Mellitus, Position Statement from the [place] Diabetes Association. ??Diabetes Care, Volume 33, Supplement 1, Aug 2009 Blood Urea Nitrogen 10 10 - 20 mg/dL [facility] Creatinine 0.85 0.80 - 1.50 mg/dL [facility] Comment: Please note that the pediatric reference intervals supplied above were not validated [place] [facility] [place] Results from pediatric patients should be interpreted in conjunction to the patient's age, height and muscle mass. Sodium 142 135 - 145 mmol/L [facility] Potassium 3.3(L) 3.5 - 5.0 mmol/L [facility] Comment: Please note: ??Patients with WBC >100,000 may have falsely elevated Potassium levels. ??For accurate Potassium quantification in these patients send serum separator tube (gold top) for subsequent determinations. ??Contact the Clinical Chemistry Laboratory if there are any questions. Chloride 106 98 - 107 mmol/L [facility] Carbon Dioxide 21(L) 22 - 31 mmol/L [facility] Anion Gap 15 5 - 15 mmol/L [facility] Calcium 8.8 8.5 - 10.5 mg/dL [facility] Est Glomerular Filtration Rate >60 >=60 [facility] Comment: This estimated GFR (eGFR) [...] the following links into your internet browser. [email or web address] Blood specimen (specimen) 11/22/2016 3:58 AM EDT 11/22/2016 4:13 AM EDT Narrative Resulting Agency Comment Spec In Lab Roque Sanches MD CHEMISTRY ORDERABLES [facility] [place] [address] * (ABNORMAL) APTT (11/22/2016 3:58 AM EDT) [facility] Partial Thromboplastin Time 44(H) 25 - 35 sec [facility] Comment: The recommended therapeutic range for full dose, unfractionated heparin at [facility] [place] is 80 ? 114 seconds. The use of the anti-Xa (heparin) level rather than the PTT is recommended for monitoring anticoagulation intensity in critically ill patients receiving unfractionated heparin by continuous IV infusion. Blood specimen (specimen) 11/22/2016 3:58 AM EDT 11/22/2016 4:13 AM EDT Narrative Resulting Agency Comment Spec In Lab Drew Pepe MD HEMATOLOGY ORDERABLE S Performing Organization Address [facility] Co de Phone Number [facility] [place] [address] * EKG 12 Lead (11/21/2016 8:34 PM EDT) Ventricular rate 72 BPM MUSE SYSTEM Atrial Rate 72 BPM MUSE SYSTEM P-R Interval 138 ms MUSE SYSTEM QRS Duration 86 ms MUSE SYSTEM Q-T Interval 382 ms MUSE SYSTEM QTC Calculated (Bezet) 418 ms MUSE SYSTEM Calculated P [place] -2 degrees MUSE SYSTEM Calculated R [place] 16 degrees MUSE SYSTEM Calculated T [place] 16 degrees MUSE SYSTEM INTERPRETATION Normal sinus rhythm Normal ECG When compared with ECG of 30-JUL-2013 08:41, No significant change was found Confirmed by MD Anton, Asif (57) on 11/22/2016 10:49:32 AM MUSE SYSTEM 11/21/2016 8:34 PM EDT 11/22/2016 10:49 AM EDT Drew Pepe MD ECG ORDERABLES Performing Organization Address [facility] Co de Phone Number MUSE SYSTEM * Hemoglobin A1c (11/21/2016 8:32 PM EDT) Hemoglobin A1c 5.6 4.3 - 5.6 % [facility] Comment: Reference Range: 4.3 - [...] Mellitus, Diabetes Care 2013; 36: Suppl. 1, L00-04 Estimated Average Glucose 114 mg/dL [facility] Comment: eAG equivalents for HbA1c percentages: HbA1c(%) ?eAG(mg/dL) 6.0 ?126 6.5 ?140 7.0 ?154 7.5 ?169 8.0 ?183 8.5 ?197 9.0 ?212 9.5 ?226 10.0 ? 240 Limitations: The eAG calculation has not been validated on women, individuals below 18 years old and above 70 years old, and individuals with hemoglobinopathies. Additional resources are available on the ADA website: [email or web address] Ashok PIMENTEL, Abdulkadir J, Jamie R, et al. ??Translating the A1C assay into estimated average glucose values. ??Diabetes Care 2008:31(8):2707-6743. Blood specimen (specimen) Venous Draw / Unknown 11/21/2016 8:32 PM EDT 11/22/2016 12:39 AM EDT Narrative Resulting Agency Comment Spec In Lab Drew Pepe MD CHEMISTRY ORDERABLES Performing Organization Address [facility] Co de Phone Number [facility] [place] [address] * TSH (11/21/2016 8:32 PM EDT) Thyroid Stimulating Hormone 2.29 0.27 - 4.20 mcIU/mL [facility] Blood specimen (specimen) Venous Draw / Unknown 11/21/2016 8:32 PM EDT 11/21/2016 8:40 PM EDT Narrative Resulting Agency Comment Spec In Lab Drew Pepe MD CHEMISTRY ORDERABLES Performing Organization Address [facility] Co de Phone Number [facility] [place] [address] * (ABNORMAL) Differential, Automated (11/21/2016 8:32 PM EDT) Neutrophil % 38.3 % [facility] Neutrophil Absolute 3.02 1.70 - 6.10 x10(3)/[facility] LABORATORY Lymph % 48.7 % [facility] Lymphocytes Abs 3.8(H) 0.9 - 3.2 x10(3)/[facility] LABORATORY Monocyte % 7.3 % [facility] Monocyte Abs 0.6 0.3 - 0.9 x10(3)/[facility] LABORATORY Eos % 4.4 % [facility] Eosinophils Abs 0.4 0.0 - 0.4 x10(3)/[facility] LABORATORY Basophil % 0.9 % [facility] Baso Absolute 0.1 0.0 - 0.1 x10(3)/[facility] LABORATORY Immature Gran % 0.40 % [facility] Comment: Immature granulocytes(IG's)percentage and absolute count will include metamyelocytes, myelocytes, and promyelocytes. Blood smears from CBCs yielding IG's will be scanned manually for concordance. If this scan disagrees with the automated IG or if promyelocytes are noted, a manual differential will be performed. Immature Gran Absolute 0.03 0.00 - 0.04 x10(3)/[facility] LABORATORY Blood specimen (specimen) 11/21/2016 8:32 PM EDT 11/21/2016 8:37 PM EDT Narrative Resulting Agency Comment Spec In Lab Drew Pepe MD HEMATOLOGY ORDERABLE S [facility] [place] [address] * Hemogram (11/21/2016 8:32 PM EDT) White Blood Cell 7.9 4.0 - 9.5 x10(3)/[facility] LABORATORY Red Blood Cell 4.64 4.58 - 5.54 x10(6)/[facility]ORATORY Hemoglobin 13.9 13.7 - 16.5 gm/dL [facility] Hematocrit 40.6 40.5 - 48.5 % [facility] Mean Cell Volume 87.5 82.9 - 93.1 fL [facility] Mean Cell Hemoglobin 30.0 27.5 - 32.1 pg [facility] Mean Cell Hemoglobin Concentration 34.2 32.0 - 35.7 gm/dL [facility] Platelet 179 145 - 357 x10(3)/[facility] LABORATORY RDW Standard Deviation 44.3 36.0 - 45.0 fL [facility] RDW coefficient of variation 13.8 11.4 - 13.8 % [facility] Mean Platelet Volume 10.8 7.6 - 12.9 fL [facility] NRBC% auto 0.0 % [facility] NRBC Absolute 0.000 0.000 - 0.000 x10(3)/[facility]ATORY Blood specimen (specimen) 11/21/2016 8:32 PM EDT 11/21/2016 8:37 PM EDT Narrative Resulting Agency Comment Spec In Lab Drew Pepe MD HEMATOLOGY ORDERABLE S [facility] [place] [address] * Cardiac Enzymes (11/21/2016 8:32 PM EDT) Troponin-T <0.03 <=0.03 ng/mL [facility] Comment: 0.03 ng/mL: Represents the 99th percentile upper reference limit for normals. >0.03 ng/mL: Elevated cardiac troponin T level indicative of myocardial damage. Diagnosis of acute, evolving or recent ND requires a typical rise and gradual fall [...] consensus document of the Joint Society of Cardiology/[place] College of Cardiology Committee for the redefinition of myocardial infarction. ??Journal of the [place] College of Cardiology 2000; 36: 959-969] Creatine Kinase 64 0 - 200 unit/L [facility] Blood specimen (specimen) 11/21/2016 8:32 PM EDT 11/21/2016 8:37 PM EDT Narrative Resulting Agency Comment Spec In Lab Drew Pepe MD CHEMISTRY ORDERABLES Performing Organization Address [facility] Co de Phone Number [facility] [place] [address] * APTT (11/21/2016 8:32 PM EDT) Partial Thromboplastin Time 32 25 - 35 sec [facility] Comment: The recommended therapeutic range for full dose, unfractionated heparin at [facility] [place] is 80 ? 114 seconds. The use of the anti-Xa (heparin) level rather than the PTT is recommended for monitoring anticoagulation intensity in critically ill patients receiving unfractionated heparin by continuous IV infusion. Blood specimen (specimen) 11/21/2016 8:32 PM EDT 11/21/2016 8:37 PM EDT Narrative Resulting Agency Comment Spec In Lab Drew Pepe MD HEMATOLOGY ORDERABLE S Performing Organization Address [facility] Co de Phone Number [facility] [place] [address] * Prothrombin Time (11/21/2016 8:32 PM EDT) Prothrombin Time 14.0 12.0 - 15.0 sec [facility] Comment: An INR <2.0 indicates [...] International Normalization Ratio 1.0 0.9 - 1.1 [facility] Blood specimen (specimen) 11/21/2016 8:32 PM EDT 11/21/2016 8:37 PM EDT Narrative Resulting Agency Comment Spec In Lab Drew Pepe MD HEMATOLOGY ORDERABLE S [facility] [place] [address] * Hepatic Function Panel (11/21/2016 8:32 PM EDT) Pathologist [facility] Protein, Total 6.8 6.1 - 8.0 gm/dL [facility] Albumin 4.0 3.2 - 5.2 gm/dL [facility] Aspartate Aminotransferase 15 0 - 39 unit/L [facility] Alanine Aminotransferase 9 0 - 55 unit/L [facility] Alkaline Phosphatase 43 40 - 120 unit/L [facility] Bilirubin, Total 0.2 0.2 - 1.3 mg/dL [facility] Bilirubin, Direct <0.1 0.0 - 0.3 mg/dL [facility] Blood specimen (specimen) 11/21/2016 8:32 PM EDT 11/21/2016 8:37 PM EDT Narrative Resulting Agency Comment Spec In Lab Drew Pepe MD CHEMISTRY ORDERABLES [facility] [address] * (ABNORMAL) Basic Metabolic Panel (non-fasting) (11/21/2016 8:32 PM EDT) Glucose 84 65 - 199 mg/dL [facility] Comment:Diabetes: >=200 mg/d L plus symptoms Blood Urea Nitrogen 10 10 - 20 mg/dL [facility] Creatinine 0.95 0.80 - 1.50 mg/dL [facility] Comment: Please note that the pediatric reference intervals supplied above were not validated [place] [facility] [place] Results from pediatric patients should be interpreted in conjunction to the patient's age, height and muscle mass. Sodium 145 135 - 145 mmol/L [facility] Potassium 3.5 3.5 - 5.0 mmol/L [facility] Comment: Please note: ??Patients with WBC >100,000 may have falsely elevated Potassium levels. ??For accurate Potassium quantification in these patients send serum separator tube (gold top) for subsequent determinations. ??Contact the Clinical Chemistry Laboratory if there are any questions. Chloride 105 98 - 107 mmol/L [facility] Carbon Dioxide 19(L) 22 - 31 mmol/L [facility] Anion Gap 21(H) 5 - 15 mmol/L [facility] Calcium 9.2 8.5 - 10.5 mg/dL [facility] Est Glomerular Filtration Rate >60 >=60 [facility] Comment: This estimated GFR (eGFR) [...] the following links into your internet browser. [email or web address] Blood specimen (specimen) 11/21/2016 8:32 PM EDT 11/21/2016 8:37 PM EDT Narrative Resulting Agency Comment Spec In Lab Drew Pepe MD CHEMISTRY ORDERABLES [facility] [place] [address] * pro-Brain Natriuretic Peptide (11/21/2016 8:32 PM EDT) NT-proBNP 65 <=125 pg/mL [facility] Blood specimen (specimen) 11/21/2016 8:32 PM EDT 11/21/2016 8:37 PM EDT Narrative Resulting Agency Comment Spec In Lab Drew Pepe MD CHEMISTRY ORDERABLES [facility] [place] [address] * POCT Glucose (11/21/2016 8:12 PM EDT) Glucose, POC 80 65 - 199 mg/dL [facility] Comment: Supplemental ranges: <140 mg/dL before meals <180 mg/dL all other times of the day Blood specimen (specimen) 11/21/2016 8:12 PM EDT 11/21/2016 8:12 PM EDT Valentín Oreilly MD POINT OF CARE TEST ORDERABLES [facility] [place] [address] documented in this encounter Visit Diagnoses Not [...] 0814 (Given - Provider: Esha Chen RN)1811 ([facility] Hold - Provider: Admin Adt - [...] Huffman, VERO) 899 (Given - Provider: Venancio Bougreois, VERO) clopidogrel (PLAVIX) tablet 75 mg 75 [...] 0815 (Given - Provider: Esha Chen RN)1811 ([facility] Hold - Provider: Admin Adt - Reason: Transfer to a Procedural area)1940 ([facility] Unhold - Provider: Admin Adt) 0858 (Given - Provider: Venancio Bourgeois RN) losartan (COZAAR) tablet 12.5 mg 12.5 mg, Oral, DAILY, First dose on 11/22/16 at 0900, Until Discontinued, Routine 0807 (Given - Provider: Esha Chen RN) 0816 (Given - Provider: Esha Chen RN)1811 ([facility] Hold - Provider: Admin Adt - Reason: Transfer to a Procedural area)1940 ([facility] Unhold - Provider: Admin Adt) 0857 (Given [...] 0816 (Given - Provider: Esha Chen RN)1811 ([facility] Hold - Provider: Admin Adt - Reason: Transfer to a Procedural area)1940 ([facility] Unhold - Provider: Admin Adt)2107 (Given - Provider: [place] Huffman RN) 09 (Given - Provider: Venancio Bourgeois RN) pantoprazole (PROTONIX) tablet 40 mg 40 mg, Oral, DAILY, First dose on 11/22/16 at 0900, Until Discontinued, DO NOT CRUSH OR OPEN, Routine 0808 (Given - Provider: Esha Chen RN) 0816 (Given - Provider: Esha Chen RN)1811 ([facility] Hold - Provider: Admin Adt - Reason: Transfer to a Procedural area)1940 ([facility] Unhold - Provider: Admin Adt) 900 (Given - Provider: Venancio Bourgeois, RN) pramipexole (MIRAPEX) tablet 0.5 mg 0.5 mg, Oral, NIGHTLY, First dose on 11/22/16 at 0030, Until Discontinued, Routine 2058 (Given - Provider: Christy Medina, VERO) 1811 ([facility] Hold - Provider: Admin Adt - Reason: Transfer to a Procedural area)1940 ([facility] Unhold - Provider: Admin Adt)2107 (Given - [...] 08 (Given - Provider: Esha Chen RN)1811 ([facility] Hold - Provider: Admin Adt - Reason: Transfer to a Procedural area)1940 ([facility] Unhold - Provider: Admin Adt)2107 (Given - [...] See comment - Comment: IV flds infusing)1811 ([facility] Hold - Provider: Admin Adt - Reason: Transfer to a Procedural area)1940 ([facility] Unhold - Provider: Admin Adt)2111 (Given - Provider: [place] Huffman, VERO) 09 (Due - Provider: Admin Adt) sodium chloride 0.9 % flush 5 mL (CANCELED) 5 mL, Intravenous, EVERY 12 HOURS, First dose on 11/22/16 at 0030, Until Discontinued, Cath (Day of Procedure), Routine 0030 (Given - Provider: Alaan Patterson RN)1226 (Given - Provider: Esha Chen [...] (Given - Provider: Esha Chen RN) 1811 ([facility] Hold - Provider: Admin Adt - Reason: Transfer to a Procedural area)1940 ([facility] Unhold - Provider: Admin Adt) heparin (porcine) injection (CANCELED) ONCE PRN, Starting on Thu11/24/16 at 1733, Until Thu11/24/16 at 1941, Cath (Intra-Procedure), Routine 1732 (Given - Provider: Naye Tena, VERO)1751 (Given - Provider: Naye Tena, VEOR) lidocaine (XYLOCAINE) 10 mg/mL (1 %) injection 3 mg 3 mg (0.3 mL), Subcutaneous, ONCE PRN, 1 dose, Starting on Thu11/21/16 at 2010, Until Thu11/25/16 at 1305, for discomfort with PIV insertion, Routine 1811 ([facility] Hold - Provider: Admin Adt - Reason: Transfer to a Procedural area)1940 ([facility] Unhold - Provider: Admin Adt) midazolam [...] last 24 to 72 hours., Routine 1811 ([facility] Hold - Provider: Admin Adt - Reason: Transfer to a Procedural area)1940 ([facility] Unhold - Provider: Admin Adt) nitroGLYcerin [...] (Given - Provider: Esha Chen RN) 1811 ([facility] Hold - Provider: Admin Adt - Reason: Transfer to a Procedural area)1940 ([facility] Unhold - Provider: Admin Adt) sodium chloride 0.9 % flush 5-20 mL 5-20 mL, Intravenous, EVERY 1 MIN PRN, Starting on 11/22/16 at 0013, Until Tu11/25/16 at 1305, flush, Flush pertains to all indwelling lines. Flush per protocol found in the job aid using the link provided on this medication record., Routine 1811 ([facility] Hold - Provider: Admin Adt - Reason: Transfer to a Procedural area)1940 ([facility] Unhold - Provider: Admin Adt) sodium chloride 0.9 % flush 5-20 mL 5-20 mL, Intravenous, EVERY 1 MIN PRN, Starting on Thu11/21/16 at 2010, Until Tu11/25/16 at 1305, flush, Flush pertains to all indwelling lines. Flush per protocol found in the job aid using the link provided on this medication record., Routine 1811 ([facility] Hold - Provider: Admin Adt - Reason: Transfer to a Procedural area)1940 ([facility] Unhold - Provider: Admin Adt) sodium [...] Routine documented in this encounter Care Teams Chiller Technician Relationship Specialty Start Date End Date Coni Lim MD [address] [place] [address] PCP - General 07/16/10 documented as of this encounter
--- OUTSIDE RECORDS SUMMARY | 2024-05-17 16:10 | XMS_ITS | Encounter Summary ---
Author Organization [facility] Address [facility] [place] [address] Care Team Providers Care Operator Lights Name Role Phone Sarita Lim MD Primary Care Provider [phone] Encounter Details Date Type Department Care Team (Late st Contact Info) Description 07/29/2013 8:00 AM EST - 07/29/2013 9:00 AM EST [place] [id number] Edy Trimble MD [facility] [place] [address] CARDIAC CATHETERIZATION Social History Tobacco Use Types [...] appointments: During 8am-5pm Thursday through Thursday call [phone] to speak with a nurse in the cardiology clinic All other times call [phone] and ask to speak to the technical fellow product demonstrator. Return to work: One week Driving: No driving for 48 hours after catheterization. Follow up Appointments: PCP Call for appointment in 1-2 weeks. Baker Biscuit You should be seen in 3-4 weeks for follow up. Please call for appointment Home oxygen therapy: N/A Arrangements for VNA/home care: none * Attachments The following attachments cannot be sent through Care Everywhere. * CARDIAC REHABILITATION: AFTER YOUR VISIT (CAMBODIAN) * CHEST PAIN (ANGINA): AFTER YOUR VISIT (CAMBODIAN) * PERCUTANEOUS CORONARY INTERVENTION: WHAT TO EXPECT AT HOME (CAMBODIAN) documented in this encounter Medications at Time [...] the Treatment of Subjects with de abby [place] Coronary Artery Lesions PI: Edy Trimble MD Pager #:[phone] Research Coordinators: GLADYS Rosenbaum, BA, GLASS DEPOSITION TENDER Pager #:[phone] Oneil Newsome RN Pager #: [phone] Purpose: The pivotal trial to support the [place] pre-market approval (PMA) of Absorb BVS. ABSORB III will evaluate the safety and effectiveness of the Absorb BVS System compared to the XIENCE in the treatment of subjects, including those with diabetes mellitus, with ischemic heart disease caused by up to two [place] coronary artery lesions in separate epicardial vessels. [...] through 5 years post procedure. Study ID#: [id number], JAM NOTE: Patient must remain blinded to their assigned study device!! * Curt Silva - 07/29/2013 7:25 AM EST ABSORB III RANDOMIZED CONTROLLED TRIAL A Clinical Evaluation of Absorb??? BVS, the Everolimus Eluting Bioresorbable Vascular Scaffold in the Treatment of Subjects with de abby [place] Coronary Artery Lesions PI: Edy Trimble MD Pager #:[phone] Research Coordinators: Curt Silva, BS, BA, GLASS DEPOSITION TENDER Pager #:[phone] Oneil Newsome RN Pager #: [phone] Purpose: The pivotal trial to support the [place] pre-market approval (PMA) of Absorb BVS. ABSORB III will evaluate the safety and effectiveness of the Absorb BVS System compared to the XIENCE in the treatment of subjects, including those with diabetes mellitus, with ischemic heart disease caused by up to two [place] coronary artery lesions in separate epicardial vessels. [...] - 07/29/2013 11:16 AM EST Romeo Coe [id number] 07/29/2013 48 y.o. Admission History and Physical [...] and clopidogrel per protocol. Randell Giles MD Kiln Packer Pager# [phone] 07/29/2013 Cardiology Attending Note: Patient seen and [...] 08/01/2013 8:56 PM ESTAssociated Order(s): SCAN DOC: STILE RIPSAW OPERATOR documented in this encounter Miscellaneous Notes * [...] to the outpatient cardiac rehabilitation program at [facility] was discussed. He participated briefly in the program at [facility] last year ( closest to him) but did not have a good experience so stopped. A referral will be sent to [facility] the program and the patient will be [...] with 3.5 X 18 mm [facility] 2009 post abnormal nuc stress [...] appointments: During 8am-5pm Thursday through Thursday call [phone] to speak with a nurse in the cardiology clinic All other times call [phone] and ask to speak to the technical fellow product demonstrator. Return to work: One week Driving: No driving for 48 hours after catheterization. Follow up Appointments: PCP Call for appointment in 1-2 weeks. Baker Biscuit You should be seen in 3-4 weeks for follow up. Please call for appointment Home oxygen therapy: N/A Arrangements for VNA/home care: none General Instructions None Future Appointments and Orders Future Orders Please Complete By Expires Referral to Cardiac Rehab [[id number] Custom] Process Instructions: If no progress note charted, please enter Clinical details in comments. Scheduling Instructions: Comments: Cardiac rehab @ [facility] Questions: Responses: Reason for referral angina, stent Provider Contact Information: Dr. Atilio Giles Section of Cardiology [facility] [phone] Discharge References/Attachments: Discharge References/Attachments None Signed: Turner [...] Procedure Name Priority Date/Time Associated Diagnosis Comments STILE RIPSAW OPERATOR SCAN 08/01/2013 8:56 PM EST EKG 12-LEAD [...] Routine 07/29/2013 4:53 PM EST CARDIAC EN[place]YMES ([facility] STAT 07/29/2013 12:53 PM EST POCT GLUCOSE Routine 07/29/2013 12:36 PM EST EKG 12-LEAD Routine 07/29/2013 11:26 AM EST ASCVD (arteriosclerotic cardiovascular disease) CARDIAC ENZYMES ([facility] Routine 07/29/2013 10:55 AM EST MISCELLANEOUS LAB REQUEST Routine 07/29/2013 9:24 AM EST EKG 12-LEAD Routine 07/29/2013 7:50 AM EST ASCVD (arteriosclerotic cardiovascular disease) POCT GLUCOSE Routine 07/29/2013 7:46 AM EST ELECTROLYTES PANEL STAT 07/29/2013 6: 06 AM EST ASCVD (arteriosclerotic cardiovascular disease) documented in this encounter Results * SCAN DOC: STILE RIPSAW OPERATOR (08/01/2013 8:56 PM EST) Anatomical Region Laterality [...] (Bezet) 405 ms MUSE SYSTEM Calculated P [place] 7 degrees MUSE SYSTEM Calculated R [place] 24 degrees MUSE SYSTEM Calculated T [place] 20 degrees MUSE SYSTEM INTERPRETATION Normal sinus rhythm Normal ECG When compared with ECG of 29-JUL-2013 11:26, No significant change was found Confirmed by MD JACKSON, FR[place] ([id number]) on 07/30/2013 11:46:49 AM MUSE SYSTEM 07/30/2013 8:41 AM EST 07/30/2013 11:46 AM EST Edy Damon MD ECG ORDERABLES MUSE SYSTEM * POCT Glucose (07/30/2013 8:09 AM EST) Glucose, POC 156 60 - 199 mg/dL [facility] Comment: Supplemental ranges: <110 mg/dL before meals <200 mg/dL all other times of the day Blood specimen (specimen) 07/30/2013 8:09 AM EST 07/30/2013 8:09 AM EST Supa Lopez MD POINT OF CARE TEST ORDERABLES [facility] * Differential, Automated (07/30/2013 6:35 AM EST) Neutrophil % 60.0 34.0 - 71.0 % [facility] Neutrophil Absolute 5.42 1.50 - 6.30 x10(3)/mcL [facility] Lymph % 27.8 19.0 - 53.0 [...] MD HEMATOLOGY ORDERABLE S [facility] * (ABNORMAL) Lipid panel (fasting) (07/30/2013 6:30 AM EST) Cholesterol, Total 154 <=199 mg/dL [facility]ILL[facility] Comment: Recommendations of the NCEP Adult Treatment Panel for the following risk cutoff thresholds for the [place] population: Desirable: <200 mg/dL Borderline High: 200-239 mg/dL High: > or = 240 mg/dL Triglyceride 156(H) <=149 mg/dL [facility] Comment: Reference Range: Normal triglycerides: ??<150 mg/dL Borderline high: ??150-199 mg/dL High: ??200-499 mg/dL Very high: ??>hs=994 mg/dL RACHEL 2001; 285(19):0080-2760 HDL Cholesterol 36(L) >=40 mg/dL [facility] N[facility] MILL[facility]NI[facility] Comment: Reference range: ??Low HDL: ?? < 40 mg/dL ??Normal: ?40-60 mg/dL ??Desirable: > 60 mg/dL RACHEL 2001; 285(19):4115-9356 LDL Cholesterol 87 <=99 mg/dL [facility] Comment: Reference range: ?? Optimal: ?<100 mg/dL ?? Near Optimal/Above Optimal: ?? 100-129 mg/dL ?? Borderline high: ?130-159 mg/dL ?? High: ? 160-189 mg/dL ?? Very high: ?>et=762 mg/dL RACHEL 2001: 285(19):8487-7007 Cholesterol/HDL Ratio 4.3 ratio [facility] Comment: A Cholesterol to HDL ratio below 4:1 is desirable. ??Studies suggest that increased CAD risk occurs at ratios above 5 for females and above 6 for men. ? [place] Heart Association ??(http://www.americanheart.org) ? Pallavi Int Med, 1994; 121:641 ? AM J Med, 1998; 105(1A):48S Blood specimen (specimen) 07/30/2013 6:30 AM EST 07/30/2013 6:44 AM EST Narrative Resulting Agency Comment Spec In Lab Edy Damon MD CHEMISTRY ORDERABLES [facility] * (ABNORMAL) BMP w/fasting Glucose (07/30/2013 6:30 AM EST) Glucose Fasting 156(H) 65 - 99 mg/dL [facility] Comment: ?Fasting* Glucose Interpretive Criteria Normal [...] of Diabetes Mellitus, Position Statement from the [place] Diabetes Association. ??Diabetes Care, Volume 33, Supplement 1, Aug 2009 Blood Urea Nitrogen 11 10 - 20 mg/dL [facility] Creatinine 0.62(L) 0.80 - 1.50 mg/dL [facility]ILLENNI[facility] Comment: Please note that the pediatric reference intervals supplied above were not validated at [facility]. Results from pediatric patients should be interpreted [...] damage. Diagnosis of acute, evolving or recent FL requires a typical rise and gradual fall [...] consensus document of the Joint Society of Cardiology/[place] College of Cardiology Committee for the redefinition of myocardial infarction. ??Journal of the [place] College of Cardiology 2000; 36: 959-969] Creatine Kinase 60 0 - 200 unit/L [facility] Blood specimen (specimen) 07/30/2013 6:30 AM EST 07/30/2013 6:44 AM EST Narrative Resulting Agency Comment Spec In Lab Edy Damon MD CHEMISTRY ORDERABLES Performing Organization Address [facility] de Phone Number [facility] * Miscellaneous Lab request (07/30/2013 6:00 AM EST) Label Request received in lab. [facility] Blood specimen (specimen) 07/30/2013 6:00 AM EST 07/30/2013 6:31 AM EST Edy Damon MD LAB SEND OUT ORDERAB LES Performing Organization Address [facility] de Phone Number [facility] * POCT Glucose (07/30/2013 4:18 AM EST) Glucose, POC 145 60 - 199 mg/dL [facility] Comment: Supplemental ranges: <110 mg/dL before meals <200 mg/dL all other times of the day Blood specimen (specimen) 07/30/2013 4:18 AM EST 07/30/2013 4:18 AM EST Supa Lopez MD POINT OF CARE TEST ORDERABLES Performing Organization Address [facility]/ZIP Co de Phone Number [facility] * POCT Glucose (07/30/2013 12:17 AM EST) Glucose, POC 129 60 - 199 mg/dL [facility] Comment: Supplemental ranges: <110 mg/dL before meals <200 mg/dL all other times of the day Blood specimen (specimen) 07/30/2013 12:17 AM EST 07/30/2013 12:17 AM EST Supa Lopez MD POINT OF CARE TEST ORDERABLES Performing Organization Address [facility] de Phone Number [facility] * POCT Glucose (07/29/2013 8:02 PM EST) Glucose, POC 127 60 - 199 mg/dL [facility] Comment: Supplemental ranges: <110 mg/dL before meals <200 mg/dL all other times of the day Blood specimen (specimen) 07/29/2013 8:02 PM EST 07/29/2013 8:02 PM EST Supa Lopez MD POINT OF CARE TEST ORDERABLES Performing Organization Address [facility] de Phone Number [facility] * Miscellaneous Lab request (07/29/2013 6:05 PM EST) Label Request received in lab. [facility] Blood specimen (specimen) 07/29/2013 6:05 PM EST 07/29/2013 6:17 PM EST Edy Damon MD LAB SEND OUT ORDERAB LES Performing Organization Address [facility] Co de Phone Number [facility] * POCT Glucose (07/29/2013 4:53 PM EST) Glucose, POC 138 60 - 199 mg/dL [facility] Comment: Supplemental ranges: <110 mg/dL before meals <200 mg/dL all other times of the day Blood specimen (specimen) 07/29/2013 4:53 PM EST 07/29/2013 4:53 PM EST Supa Lopez MD POINT OF CARE TEST ORDERABLES Performing Organization Address [facility] de Phone Number [facility] * Cardiac Enzymes (07/29/2013 12:53 PM EST) Troponin-T <0.03 <=0.03 ng/mL [facility] Comment: 0.03 ng/mL: Represents the 99th percentile upper reference limit for normals. >0.03 ng/mL: Elevated cardiac troponin T level indicative of myocardial damage. Diagnosis of acute, evolving or recent FL requires a typical rise and gradual fall [...] consensus document of the Joint Society of Cardiology/[place] College of Cardiology Committee for the redefinition of myocardial infarction. ??Journal of the [place] College of Cardiology 2000; 36: 959-969] Creatine Kinase 55 0 - 200 unit/L [facility] Blood specimen (specimen) 07/29/2013 12:53 PM EST 07/29/2013 12:59 PM EST Narrative Resulting Agency Comment Spec In Lab Edy Damon MD CHEMISTRY ORDERABLES Performing Organization Address [facility] de Phone Number [facility] * POCT Glucose (07/29/2013 12:36 PM EST) Glucose, POC 142 60 - 199 mg/dL [facility] Comment: Supplemental ranges: <110 mg/dL before meals <200 mg/dL all other times of the day Blood specimen (specimen) 07/29/2013 12:36 PM EST 07/29/2013 12:36 PM EST Supa Lopez MD POINT OF CARE TEST ORDERABLES Performing Organization Address [facility] de Phone Number [facility] [employer] [employer] * EKG 12 Lead (07/29/2013 11:26 AM EST) Ventricular rate 67 BPM MUSE SYSTEM Atrial Rate 67 BPM MUSE SYSTEM P-R Interval 164 ms MUSE SYSTEM QRS Duration 90 ms MUSE SYSTEM Q-T Interval 394 ms MUSE SYSTEM QTC Calculated (Bezet) 416 ms MUSE SYSTEM Calculated P [place] 48 degrees MUSE SYSTEM Calculated R [place] 33 degrees MUSE SYSTEM Calculated T [place] 32 degrees MUSE SYSTEM INTERPRETATION Normal sinus rhythm Normal ECG When compared with ECG of 29-JUL-2013 07:50, (unconfirmed) No significant change was found Confirmed by MD SELINA, FRED ([id number]) on 07/30/2013 7:39:47 AM MUSE SYSTEM 07/29/2013 11:2 6 AM EST 07/30/2013 7:39 AM EST Edy Damon MD ECG ORDERABLES Performing Organization Address [facility] de Phone Number MUSE SYSTEM * Cardiac Enzymes (07/29/2013 10:55 AM EST) Troponin-T <0.03 <=0.03 ng/mL [facility] [employer] Comment: 0.03 ng/mL: Represents the 99th percentile upper reference limit for normals. >0.03 ng/mL: Elevated cardiac troponin T level indicative of myocardial damage. Diagnosis of acute, evolving or recent [place] requires a typical rise and gradual fall [...] consensus document of the Joint Society of Cardiology/[place] College of Cardiology Committee for the redefinition of myocardial infarction. ??Journal of the [place] College of Cardiology 2000; 36: 959-969] Creatine Kinase 50 0 - 200 unit/L [facility] Blood specimen (specimen) 07/29/2013 10:55 AM EST 07/29/2013 11:08 AM EST Narrative Resulting Agency Comment Spec In Lab Edy Damon MD CHEMISTRY ORDERABLES Performing Organization Address [facility] de Phone Number [facility] * Miscellaneous Lab request (07/29/2013 9:24 AM EST) Label Request received in lab. [facility] Blood specimen (specimen) 07/29/2013 9:24 AM EST 07/29/2013 10:56 AM EST Edy Damon MD LAB SEND OUT ORDERAB LES Performing Organization Address [facility] Phone Number [facility] * EKG 12 Lead (07/29/2013 7:50 AM EST) Ventricular rate 72 BPM MUSE SYSTEM Atrial Rate 72 BPM MUSE SYSTEM P-R Interval 136 ms MUSE SYSTEM QRS Duration 94 ms MUSE SYSTEM Q-T Interval 372 ms MUSE SYSTEM QTC Calculated (Bezet) 407 ms MUSE SYSTEM Calculated P [place] 3 degrees MUSE SYSTEM Calculated R [place] 42 degrees MUSE SYSTEM Calculated T [place] 36 degrees MUSE SYSTEM INTERPRETATION Normal sinus rhythm Normal ECG When compared with ECG of 15-JUN-2012 12:40, No significant change was found Confirmed by MD SELINA, FRED ([id number]) on 07/30/2013 7:24:11 AM MUSE SYSTEM 07/29/2013 7:50 AM EST 07/30/2013 7:24 AM EST Edy Damon MD ECG ORDERABLES Performing Organization Address [facility] Co de Phone Number MUSE SYSTEM * POCT Glucose (07/29/2013 7:46 AM EST) Glucose, POC 160 60 - 199 mg/dL [facility] Comment: Supplemental ranges: <110 mg/dL before meals <200 mg/dL all other times of the day Blood specimen (specimen) 07/29/2013 7:46 AM EST 07/29/2013 7:46 AM EST Supa Lopez MD POINT OF CARE TEST ORDERABLES Performing Organization Address [facility] Co de [...] Ball MD CHEMISTRY ORDERABLES Performing Organization Address [facility] Co de [...] in sodium chloride 0.9% 90 mL infusion (TOASTER ELEMENT REPAIRER) CONTINUOUS PRN, Starting on Thu07/29/13 at 0955, [...] 07/30/13 at 0900, Until Discontinued, Routine 1342 ([facility] Hold - Provider: Admin Adt - Reason: Transfer to a Procedural area)1343 ([facility] Unhold - Provider: Admin Adt) 0826 (Given - Provider: Reina Randall RN) clopidogrel (PLAVIX) tablet 75 mg (CANCELED) 75 mg, Oral, DAILY, First dose on Thu07/29/13 at 1245, Until Discontinued, Routine 1245 (Not Given - Provider: Jessica Barr RN - Reason: See comment - Comment: pt took in a.m.)1342 ([facility] Hold - Provider: Admin Adt - Reason: Transfer to a Procedural area)1343 ([facility] Unhold - Provider: Admin Adt) 0826 (Given - Provider: Reina Randall RN) cyclobenzaprine (FLEXERIL) tablet 10 mg (CANCELED) 10 mg, Oral, NIGHTLY, First dose on Thu07/29/13 at 2100, Until Discontinued, Routine 1342 ([facility] Hold - Provider: Admin Adt - Reason: Transfer to a Procedural area)1343 ([facility] Unhold - Provider: Admin Adt)2122 (Given - Provider: Mahesh Hurt RN) diaZEPam (VALIUM) tablet 5 mg (COMPLETED) 5 mg, Oral, ONCE, 1 dose, On Thu07/29/13 at 0800, Cath (Day of Procedure), Routine 0838 (Given - Provider: Kemi Mullen, VERO) DILTiazem (DILACOR XR) XR capsule 240 mg (CANCELED) 240 mg, Oral, DAILY, First dose on 07/30/13 at 0900, Until Discontinued, Routine 1342 ([facility] Hold - Provider: Admin Adt - Reason: Transfer to a Procedural area)1343 ([facility] Unhold - Provider: Admin Adt) 0826 (Given - Provider: Reina Randall RN) diphenhydrAMINE (BENADRYL) capsule 25 mg (COMPLETED) 25 mg, Oral, ONCE, 1 dose, On Thu07/29/13 at 0800, Cath (Day of Procedure), Routine 0839 (Given - Provider: Kemi Mullen RN) DULoxetine (CYMBALTA) capsule 60 mg (CANCELED) 60 mg, Oral, 2 TIMES DAILY, First dose on Thu07/29/13 at 2100, Until Discontinued, Routine 1342 ([facility] Hold - Provider: Admin Adt - Reason: Transfer to a Procedural area)1343 ([facility] Unhold - Provider: Admin Adt)2122 (Given - Provider: Mahesh Hurt, RN) 0826 (Given - Provider: Reina Randall RN) furosemide (LASIX) tablet 20 mg (CANCELED) 20 mg, Oral, DAILY, First dose on Thu07/29/13 at 1245, Until Discontinued, Routine 1245 (Not Given - Provider: Jessica Barr RN - Reason: Patient/family refused)1342 ([facility] Hold - Provider: Admin Adt - Reason: Transfer to a Procedural area)1343 ([facility] Unhold - Provider: Admin Adt) 0826 (Given - Provider: Reina Randall RN) gabapentin (NEURONTIN) capsule 300 mg (CANCELED) 300 mg, Oral, 3 TIMES DAILY, First dose on Thu07/29/13 at 1500, Until Discontinued, Routine 1342 ([facility] Hold - Provider: Admin Adt - Reason: Transfer to a Procedural area)1343 ([facility] Unhold - Provider: Admin Adt)1500 (Given - [...] 07/30/13 at 0600, Until Discontinued, Routine 1342 ([facility] Hold - Provider: Admin Adt - Reason: Transfer to a Procedural area)1343 ([facility] Unhold - Provider: Admin Adt) 0638 (Given - Provider: Mahesh Hurt RN) metoprolol tartrate (LOPRESSOR) tablet 50 mg (CANCELED) 50 mg, Oral, 2 TIMES DAILY, First dose on Thu07/29/13 at 1245, Until Discontinued, Routine 1245 (Not Given - Provider: Jessica Barr RN - Reason: See comment - Comment: pt took in a.m.)1342 ([facility] Hold - Provider: Admin Adt - Reason: Transfer to a Procedural area)1343 ([facility] Unhold - Provider: Admin Adt)212 (Given - Provider: Mahesh Hurt RN) 08 (Given - Provider: Reina Randall RN) pantoprazole (PROTONIX) tablet 20 mg 20 mg, Oral, DAILY, First dose on 07/30/13 at 0900, Until Discontinued, Restricted to patients on clopidpgrel (PLAVIX) who require a proton pump inhibitor 1342 ([facility] Hold - Provider: Admin Adt - Reason: Transfer to a Procedural area)1343 ([facility] Unhold - Provider: Admin Adt) 0826 (Given - Provider: Reina Randall RN) rosuvastatin (CRESTOR) tablet 10 mg (CANCELED) 10 mg, Oral, EVERY EVENING, First dose on Thu07/29/13 at 1700, Until Discontinued, Routine 1342 ([facility] Hold - Provider: Admin Adt - Reason: Transfer to a Procedural area)1343 ([facility] Unhold - Provider: Admin Adt)1700 (Given [...] (New Bag - Provider: Keeley Kyle RN)1342 ([facility] Hold - Provider: Admin Adt - Reason: Transfer to a Procedural area)1343 ([facility] Unhold - Provider: Admin Adt)1652 (Stopped - Provider: Jessica Barr RN) PRN Medication Order 07/28/2013 07/29/2013 07/30/2013 adenosine 90 mg in sodium chloride 0.9% 90 mL infusion (TOASTER ELEMENT REPAIRER) (CANCELED) CONTINUOUS PRN, Starting on Thu07/29/13 at [...] Juan Ren RN)1023 (Given - Provider: Daniel sAif RN)1034 (Given - Provider: Daniel Asif RN) [...] MD) documented in this encounter Care Teams Operator Lights Relationship Specialty Start Date End Date Sarita Lim MD [address] [place] [address] PCP - General 07/16/10 documented as of this encounter
--- OUTSIDE RECORDS SUMMARY | 2024-05-17 16:10 | XMS_ITS | Encounter Summary ---
[place] [address] Care Team Providers Care Air Commodore Name Role Phone Coni Lim MD Primary Care Provider [phone] Reason for Visit * Reason Onset Date Comments Other 07/26/2013 PRE CATH WORK UP DIABETIC METFORMIN Encounter Details Date Type Department Care Team (Late st Contact Info) Description 07/26/2013 Telephone Cardiology at [address] [phone] Lana Damon Other (PRE CATH WORK UP [...] filedocumented in this encounter Care Teams Air Commodore Relationship Specialty Start Date End Date Coni Lim MD [address] [place] [address] PCP - General 07/16/10 documented as of this encounter
--- OUTSIDE RECORDS SUMMARY | 2024-05-17 16:10 | XMS_ITS | Encounter Summary ---
Author Organization [facility] Address [facility] [place] [address] Care Team Providers Care Waiter Waitress Name Role Phone Coni Lim MD Primary Care Provider [phone] Encounter Details Date Type Department Care Team (Late st Contact Info) Description 07/26/2013 Orders Only Cardiology at [address] [phone] Taylor Dickinson, [place] [facility] [place] [address] ASCVD (arteriosclerotic cardiovascular disease) (Primary Dx) Social [...] disease documented in this encounter Care Teams Waiter Waitress Relationship Specialty Start Date End Date Coni Lim MD [address] [place] [address] PCP - General 07/16/10 documented as of this encounter
--- OUTSIDE RECORDS SUMMARY | 2024-05-17 16:10 | XMS_ITS | Encounter Summary ---
Author Organization [facility] Address [facility] [place] [address] Care Team Providers Care Outpatient Coding Specialist Name Role Phone Coni Lim MD Primary Care Provider [phone] Encounter Details Date Type Department Care Team (Late st Contact Info) Description 06/14/2012 Orders Only [place] [address] Benjie Castellon MD [facility] [place] [address] Social History Tobacco Use Types Packs/Day Years [...] on filedocumented in this encounter Care Teams Outpatient Coding Specialist Relationship Specialty Start Date End Date Coni Lim MD [address] [place] [address] PCP - General 07/16/10 documented as of this encounter
--- OUTSIDE RECORDS SUMMARY | 2024-05-17 16:10 | XMS_ITS | Encounter Summary ---
Author Organization [facility] [place] [address] Care Team Providers Care St[employer]her [employer] T[employer] Range Feeder Name Role Phone Coni Lim MD Primary Care Provider Encounter Details Date Type Department Care Team (Late st Contact Info) Description 07/26/2015 Telephone Cardiology at [address] [phone] Destin Patel, RN Social History Tobacco Use [...] Kim Horvath is aware as the blinded missing persons investigator. I will follow up with him should it be necessary. documented in this encounter Plan of Treatment Not on file documented as of this encounter Visit Diagnoses Not on filedocumented in this encounter Care Teams [employer] Feeder Relationship Specialty Start Date End Date Coni Lim MD [address] [place] [address] PCP - General 07/16/10 documented as of this encounter
--- OUTSIDE RECORDS SUMMARY | 2024-05-17 16:10 | XMS_ITS | Encounter Summary ---
Author Organization [facility] Address [facility] [place] [address] Care Team Providers Care Telephone Claims Representative Name Role Phone Coni Lim MD Primary Care Provider [phone] Encounter Details Date Type Department Care Team (Latest Contact Info) Description 07/29/2013 11:02 AM EST - 07/29/2013 11:[address] [facility] Hospital Encounter ZLEB 4A [facility] [place] [address] Edy Trimble MD [facility] [place] [address] Discharge Disposition: Home Social History Tobacco Use [...] CK-MB Study (07/29/2013 6:05 PM EST) Pathologist [facility] Creatine Kinase 57 0 - 200 unit/L [facility] [employer] CK-MB 1.4 0.0 - 5.0 mcg/L [facility] [employer] CKMB Index 2.5 0.0 - 5.0 mcg/u [facility] MILLENNIUM Blood specimen (specimen) 07/29/2013 6:05 PM EST 07/29/2013 6:33 PM EST Narrative Resulting Agency Comment Spec In Lab Edy Damon MD CHEMISTRY ORDERABLES Performing Organization Address City/[facility] Co de Phone Number CERANNABEL JENSENENNIUM * [...] Damon MD CHEMISTRY ORDERABLES Performing Organization Address [facility] Co de Phone Number [facility]NA[facility] CLEMENSIUM documented in this encounter Visit Diagnoses Not on filedocumented in this encounter Care Teams Telephone Claims Representative Relationship Specialty Start Date End Date Coni Lim MD [address] [place] [address] PCP - General 07/16/10 documented as of this encounter
--- OUTSIDE RECORDS SUMMARY | 2024-05-17 16:10 | XMS_ITS | Encounter Summary ---
Author Organization [facility] Address [facility] [place] [address] Care Team Providers Care [employer] Testing [employer] Leader Name Role Phone Coni Lim MD Primary Care Provider [phone] Reason for Visit * Reason Onset Date Comments Medication Refill 08/10/2013 Encounter Details Date Type Department Care Team (Late st Contact Info) Description 08/10/2013 Refill Cardiology at [address] [phone] Turner Tan MD [facility] [place] [address] Medication Refill Social History Tobacco Use Types [...] on filedocumented in this encounter Care Teams [employer] Leader Relationship Specialty Start Date End Date Coni Lim MD [address] [place] [address] PCP - General 07/16/10 documented as of this encounter
--- OUTSIDE RECORDS SUMMARY | 2024-05-17 16:10 | XMS_ITS | Encounter Summary ---
Author Organization [facility] Address [facility] [place] [address] Care Team Providers Care Mobile Home Set Up Person Name Role Phone Coni Lim MD Primary Care Provider [phone] Encounter Details Date Type Department Care Team (Late st Contact Info) Description 06/14/2012 Orders Only Cardiology at [address] [phone] Bryan Iverson MD [facility] [place] [phone] Social History Tobacco Use Types Packs/Day Years [...] PM EDT) 06/14/2012 1:26 PM EDT Narrative [facility] - 03/13/2014 6:59 PM EDT This is a non-reportable exam. Procedure Note Shukri Mckee - 03/13/2014 This is a non-reportable exam. Bryan Iverson MD IM FILM LIBRARY ORD ERABLES RAD [address] [employer] [employer] [address] documented in this encounter Visit Diagnoses Not on filedocumented in this encounter Care Teams Mobile Home Set Up Person Relationship Specialty Start Date End Date Coni Lim MD [address] [place] [address] PCP - General 07/16/10 documented as of this encounter
--- OUTSIDE RECORDS SUMMARY | 2024-05-17 16:10 | XMS_ITS | Encounter Summary ---
Author Organization [facility] [place] [address] Care Team Providers Care Sandblast Carver Name Role Phone Coni Lim MD Primary Care Provider [phone] Encounter Details Date Type Department Care Team (Late st Contact Info) Description 07/26/2013 Telephone Cardiology at [address] [phone] Shanell Julian CMA Social History Tobacco Use [...] on filedocumented in this encounter Care Teams Sandblast Carver Relationship Specialty Start Date End Date Coni Lim MD [address] [place] [address] PCP - General 07/16/10 documented as of this encounter
--- OUTSIDE RECORDS SUMMARY | 2024-05-17 16:10 | XMS_ITS | Encounter Summary ---
Author Organization [facility] [place] [address] Care Team Providers Care Material Handler Name Role Phone Sarita Chew MD Primary Care Provider [phone] Reason for Referral * (Routine) - Closed by system - Referral Specialty Diagnoses / Procedures Referred By Contac t Referred To Contact Cardiac Rehabilitation Diagnoses S/P coronary artery stent placement Edy Trimble MD [facility] [place] [address] Referral ID Status Reason Start Date Expiration Date Visits Requested Visits Authorized [id number] Closed by system - Referral Evaluate and Treat 07/30/2013 01/26/2014 1 1 Encounter Details Date Type Department Care Team (Late st Contact Info) Description 07/29/2013 5:57 AM EST - 07/30/2013 10:58 AM EST Hospital Encounter [place] [id number] Taylor Dickinson PA [facility] [place] [address] Supa Lopez MD [facility] [place] [address] Agusto Ball II, MD [facility] [place] [address] Edy Trimble MD [facility] [place] [address] ASCVD (arteriosclerotic cardiovascular disease); S/P coronary artery [...] appointments: During 8am-5pm Thursday through Thursday call [phone] to speak with a nurse in the cardiology clinic All other times call [phone] and ask to speak to the estate agent rehabilitation attendant. Return to work: One week Driving: No driving for 48 hours after catheterization. Follow up Appointments: PCP Call for appointment in 1-2 weeks. Director Emergency Services You should be seen in 3-4 weeks for follow up. Please call for appointment Home oxygen therapy: N/A Arrangements for VNA/home care: none * Attachments The following attachments cannot be sent through Care Everywhere. * CARDIAC REHABILITATION: AFTER YOUR VISIT ([place]) * CHEST PAIN (ANGINA): AFTER YOUR VISIT ([place]) * PERCUTANEOUS CORONARY INTERVENTION: WHAT TO EXPECT AT HOME ([place]) documented in this encounter Medications at Time [...] mg/dL MISCELLANEOUS LAB REQUEST Component Value Range [facility] Lab Result Request received in lab. CK-MB [...] mg/dL MISCELLANEOUS LAB REQUEST Component Value Range [facility] Lab Result Request received in lab. CK-MB [...] the Treatment of Subjects with de abby [place] Coronary Artery Lesions PI: Edy Trimble MD Pager #:[phone] Research Coordinators: GLADYS Rosenbaum, BA, RAILROAD CAR PAINTER Pager #:[phone] Oneil Newsome RN Pager #: [phone] Purpose: The pivotal trial to support the [place] pre-market approval (PMA) of Absorb BVS. ABSORB III will evaluate the safety and effectiveness of the Absorb BVS System compared to the XIENCE in the treatment of subjects, including those with diabetes mellitus, with ischemic heart disease caused by up to two denovo [place] coronary artery lesions in separate epicardial vessels. [...] through 5 years post procedure. Study ID#: [id number], JAM NOTE: Patient must remain blinded to their assigned study device!! * Curt Silva - 07/29/2013 7:25 AM EST ABSORB III RANDOMIZED CONTROLLED TRIAL A Clinical Evaluation of Absorb??? BVS, the Everolimus Eluting Bioresorbable Vascular Scaffold in the Treatment of Subjects with de abby [place] Coronary Artery Lesions PI: Edy Trimble MD Pager #:[phone] Research Coordinators: GLADYS Rosenbaum, BA, RAILROAD CAR PAINTER Pager #:[phone] Oneil Newsome RN Pager #: [phone] Purpose: The pivotal trial to support the [place] pre-market approval (PMA) of Absorb BVS. ABSORB III will evaluate the safety and effectiveness of the Absorb BVS System compared to the XIENCE in the treatment of subjects, including those with diabetes mellitus, with ischemic heart disease caused by up to two denovo [place] coronary artery lesions in separate epicardial vessels. [...] - 07/29/2013 11:16 AM EST Romeo Coe [id number] 07/29/2013 48 y.o. Admission History and Physical [...] and clopidogrel per protocol. Randell Giles MD Hair Salon Manager Pager# [phone] 07/29/2013 Cardiology Attending Note: Patient seen and [...] 08/01/2013 8:56 PM ESTAssociated Order(s): SCAN DOC: YARD ENGINEER documented in this encounter Miscellaneous Notes * [...] to the outpatient cardiac rehabilitation program at [facility] was discussed. He participated briefly in the program at [facility] last year ( closest to him) but did not have a good experience so stopped. A referral will be sent to [facility] the program and the patient will be [...] with 3.5 X 18 mm [facility] 2009 post abnormal nuc stress +IW, [...] appointments: During 8am-5pm Thursday through Thursday call [phone] to speak with a nurse in the cardiology clinic All other times call [phone] and ask to speak to the estate agent rehabilitation attendant. Return to work: One week Driving: No driving for 48 hours after catheterization. Follow up Appointments: PCP Call for appointment in 1-2 weeks. Director Emergency Services You should be seen in 3-4 weeks for follow up. Please call for appointment Home oxygen therapy: N/A Arrangements for VNA/home care: none General Instructions None Future Appointments and Orders Future Orders Please Complete By Expires Referral to Cardiac Rehab [[id number] Custom] Process Instructions: If no progress note charted, please enter Clinical details in comments. Scheduling Instructions: Comments: Cardiac rehab @ [facility] Questions: Responses: Reason for referral angina, stent Provider Contact Information: Dr. Atilio Giles Section of Cardiology [facility] [phone] Discharge References/Attachments: Discharge References/Attachments None Signed: Turner [...] Procedure Name Priority Date/Time Associated Diagnosis Comments YARD ENGINEER SCAN 08/01/2013 8:56 PM EST EKG 12-LEAD [...] Routine 07/29/2013 4:53 PM EST CARDIAC ENZYMES ([facility]) STAT 07/29/2013 12:53 PM EST POCT GLUCOSE Routine 07/29/2013 12:36 PM EST EKG 12-LEAD Routine 07/29/2013 11:26 AM EST ASCVD (arteriosclerotic cardiovascular disease) CARDIAC ENZYMES ([facility]) Routine 07/29/2013 10:55 AM EST MISCELLANEOUS LAB REQUEST Routine 07/29/2013 9:24 AM EST EKG 12-LEAD Routine 07/29/2013 7:50 AM EST ASCVD (arteriosclerotic cardiovascular disease) POCT GLUCOSE Routine 07/29/2013 7:46 AM EST ELECTROLYTES PANEL STAT 07/29/2013 6: 06 AM EST ASCVD (arteriosclerotic cardiovascular disease) documented in this encounter Results * SCAN DOC: YARD ENGINEER (08/01/2013 8:56 PM EST) Anatomical Region Laterality [...] (Bezet) 405 ms MUSE SYSTEM Calculated P [place] 7 degrees MUSE SYSTEM Calculated R [place] 24 degrees MUSE SYSTEM Calculated T [place] 20 degrees MUSE SYSTEM INTERPRETATION Normal sinus rhythm Normal ECG When compared with ECG of 29-JUL-2013 11:26, No significant change was found Confirmed by MD JACKSON, [place] ([id number]) on 07/30/2013 11:46:49 AM MUSE SYSTEM 07/30/2013 [...] OF CARE TEST ORDERABLES Performing Organization Address [facility] Co de Phone Number CERNER MILLENNIUM [...] MD HEMATOLOGY ORDERABLE S Performing Organization Address [facility] Co de Phone Number TANG CLEMENSIUM [...] MD HEMATOLOGY ORDERABLE S Performing Organization Address [facility] de Phone Number TANG NORTON * (ABNORMAL) Lipid panel (fasting) (07/30/2013 6:30 AM EST) Cholesterol, Total 154 <=199 mg/dL CERNER MILLENNIUM Comment: Recommendations of the NCEP Adult Treatment Panel for the following risk cutoff thresholds for the [place] population: Desirable: <200 mg/dL Borderline High: 200-239 mg/dL High: > or = 240 mg/dL Triglyceride 156(H) <=149 mg/dL CERNER MILLENNIUM Comment: Reference Range: Normal triglycerides: ??<150 mg/dL Borderline high: ??150-199 mg/dL High: ??200-499 mg/dL Very high: ??>se=847 mg/dL RACHEL 2001; 285(19):5578-3773 HDL Cholesterol 36(L) >=40 mg/dL CER NER MILLENNIUM Comment: Reference range: ??Low HDL: ?? < 40 mg/dL ??Normal: ?40-60 mg/dL ??Desirable: > 60 mg/dL RACHEL 2001; 285(19):3223-3971 LDL Cholesterol 87 <=99 mg/dL CER NER MILLENNIUM Comment: Reference range: ?? Optimal: ?<100 mg/dL ?? Near Optimal/Above Optimal: ?? 100-129 mg/dL ?? Borderline high: ?130-159 mg/dL ?? High: ? 160-189 mg/dL ?? Very high: ?>kj=725 mg/dL RACHEL 2001: 285(19):4484-7006 Cholesterol/HDL Ratio 4.3 ratio CERNER MILLENNIUM Comment: A Cholesterol to HDL ratio below 4:1 is desirable. ??Studies suggest that increased CAD risk occurs at ratios above 5 for females and above 6 for men. ? [place] Heart Association ??(http://www.americanheart.org) ? Pallavi Int Med, [...] intervals supplied above were not validated at [facility]. Results from pediatric patients [...] In Lab Edy Damon MD CHEMISTRY ORDERABLES [facility] 12 [facility] * Cardiac Enzymes (07/30/2013 6:30 AM EST) Troponin-T <0.03 <=0.03 ng/mL [employer] Comment: 0.03 ng/mL: Represents the 99th percentile upper reference limit for normals. >0.03 ng/mL: Elevated cardiac troponin T level indicative of myocardial damage. Diagnosis of acute, evolving or recent [place] requires a typical rise and gradual fall [...] consensus document of the Joint Society of Cardiology/[place] College of Cardiology Committee for the redefinition of myocardial infarction. ??Journal of the [place] College of Cardiology 2000; 36: 959-969] Creatine Kinase 60 0 - 200 unit/L TANG [employer] Blood specimen (specimen) 07/30/2013 6:30 AM EST 07/30/2013 6:44 AM EST Narrative Resulting Agency Comment Spec In Lab Edy Damon MD CHEMISTRY ORDERABLES Performing Organization Address [facility] Phone Number [facility] * Miscellaneous Lab request (07/30/2013 6:00 AM EST) Label Request received in lab. [facility] Blood specimen (specimen) 07/30/2013 6:00 AM EST 07/30/2013 6:31 AM EST Edy Damon MD LAB SEND OUT ORDERAB LES Performing Organization Address [facility] Phone Number [facility] * POCT Glucose (07/30/2013 4:18 AM EST) Glucose, POC 145 60 - 199 mg/dL [facility] Comment: Supplemental ranges: <110 mg/dL before meals <200 mg/dL all other times of the day Blood specimen (specimen) 07/30/2013 4:18 AM EST 07/30/2013 4:18 AM EST Supa Lopez MD POINT OF CARE TEST ORDERABLES Performing Organization Address [facility] Phone Number [facility] * POCT Glucose (07/30/2013 12:17 AM EST) Glucose, POC 129 60 - 199 mg/dL [facility] Comment: Supplemental ranges: <110 mg/dL before meals <200 mg/dL all other times of the day Blood specimen (specimen) 07/30/2013 12:17 AM EST 07/30/2013 12:17 AM EST Supa Lopez MD POINT OF CARE TEST ORDERABLES Performing Organization Address [facility] Phone Number [facility] * POCT Glucose (07/29/2013 8:02 PM EST) Glucose, POC 127 60 - 199 mg/dL [facility] Comment: Supplemental ranges: <110 mg/dL before meals <200 mg/dL all other times of the day Blood specimen (specimen) 07/29/2013 8:02 PM EST 07/29/2013 8:02 PM EST Supa Lopez MD POINT OF CARE TEST ORDERABLES Performing Organization Address [facility] Phone Number [facility] * Miscellaneous Lab request (07/29/2013 6:05 PM EST) Label Request received in lab. [facility] Blood specimen (specimen) 07/29/2013 6:05 PM EST 07/29/2013 6:17 PM EST Edy Damon MD LAB SEND OUT ORDERAB LES Performing Organization Address [facility] Phone Number [facility] * POCT Glucose (07/29/2013 4:53 PM EST) Pathologist [facility] Glucose, POC 138 60 - 199 mg/dL [facility] Comment: Supplemental ranges: <110 mg/dL before meals <200 mg/dL all other times of the day Blood specimen (specimen) 07/29/2013 4:53 PM EST 07/29/2013 4:53 PM EST Supa Lopez MD POINT OF CARE TEST ORDERABLES Performing Organization Address [facility] Phone Number [facility] * Cardiac Enzymes (07/29/2013 12:53 PM EST) [facility] Troponin-T <0.03 <=0.03 ng/mL [facility] Comment: 0.03 ng/mL: Represents the 99th percentile upper reference limit for normals. >0.03 ng/mL: Elevated cardiac troponin T level indicative of myocardial damage. Diagnosis of acute, evolving or recent [place] requires a typical rise and gradual fall [...] consensus document of the Joint Society of Cardiology/[place] College of Cardiology Committee for the redefinition of myocardial infarction. ??Journal of the [place] College of Cardiology 2000; 36: 959-969] Creatine Kinase 55 0 - 200 unit/L [facility] Blood specimen (specimen) 07/29/2013 12:53 PM EST 07/29/2013 12:59 PM EST Narrative Resulting Agency Comment Spec In Lab Edy Damon MD CHEMISTRY ORDERABLES Performing Organization Address City/[facility]/ZIP Co de Phone Number [facility] * POCT Glucose (07/29/2013 12:36 PM EST) Glucose, POC 142 60 - 199 mg/dL [facility] Comment: Supplemental ranges: <110 mg/dL before meals <200 mg/dL all other times of the day Blood specimen (specimen) 07/29/2013 12:36 PM EST 07/29/2013 12:36 PM EST Supa Lopez MD POINT OF CARE TEST ORDERABLES Performing Organization Address [facility] Co de Phone Number [facility] * EKG 12 Lead (07/29/2013 11:26 AM EST) Ventricular rate 67 BPM MUSE SYSTEM Atrial Rate 67 BPM MUSE SYSTEM P-R Interval 164 ms MUSE SYSTEM QRS Duration 90 ms MUSE SYSTEM Q-T Interval 394 ms MUSE SYSTEM QTC Calculated (Bezet) 416 ms MUSE SYSTEM Calculated P [place]iston 48 degrees MUSE SYSTEM Calculated R [place] 33 degrees MUSE SYSTEM Calculated T [place] 32 degrees MUSE SYSTEM INTERPRETATION Normal sinus [...] damage. Diagnosis of acute, evolving or recent [place] requires a typical rise and gradual fall [...] consensus document of the Joint Society of Cardiology/[place] College of Cardiology Committee for the redefinition of myocardial infarction. ??Journal of the [place] College of Cardiology 2000; 36: 959-969] Creatine Kinase 50 0 - 200 unit/L TANG NORTON Blood specimen (specimen) 07/29/2013 10:55 AM EST 07/29/2013 11:08 AM EST Narrative Resulting Agency Comment Spec In Lab Edy Damon MD CHEMISTRY ORDERABLES Performing Organization Address [facility] Co de Phone Number TANG NORTON [...] (Bezet) 407 ms MUSE SYSTEM Calculated P [place] 3 degrees MUSE SYSTEM Calculated R [place] 42 degrees MUSE SYSTEM Calculated T [place]iston 36 degrees MUSE SYSTEM INTERPRETATION Normal sinus rhythm Normal ECG When compared with ECG of 15-JUN-2012 12:40, No significant change was found Confirmed by MD MARKS ALAN ([id number]) on 07/30/2013 7:24:11 AM MUSE SYSTEM 07/29/2013 7:50 AM EST 07/30/2013 7:24 AM EST Edy Damon MD ECG ORDERABLES MUSE SYSTEM * POCT Glucose (07/29/2013 7:46 AM EST) Pathologist [facility] Glucose, POC 160 60 - 199 mg/dL [...] Coronary atherosclerosis of unspecified type of vessel, [place] or graft ASCVD (arteriosclerotic cardiovascular disease) Unspecified [...] Thu07/29/13 at 2100, Until Discontinued, Routine 1342 ([facility] Hold - Provider: Admin Adt - Reason: Transfer to a Procedural area)1343 ([facility] Unhold - Provider: Admin Adt)212 (Given - Provider: Mahesh Hurt RN) diaZEPam (VALIUM) tablet 5 mg (COMPLETED) 5 mg, Oral, ONCE, 1 dose, On Thu07/29/13 at 0800, Cath (Day of Procedure), Routine 0838 (Given - Provider: Kemi Mullen, VERO) DILTiazem (DILACOR XR) XR capsule 240 mg (CANCELED) 240 mg, Oral, DAILY, First dose on Thu07/30/13 at 0900, Until Discontinued, Routine 1342 ([facility] Hold - Provider: Admin Adt - Reason: Transfer to a Procedural area)1343 ([facility] Unhold - Provider: Admin Adt) [...] Thu07/29/13 at 2100, Until Discontinued, Routine 1342 ([facility] Hold - Provider: Admin Adt - Reason: Transfer to a Procedural area)1343 ([facility] Unhold - Provider: Admin Adt)212 (Given - Provider: Mahesh Hurt RN) 0826 (Given - Provider: Reina Randall RN) furosemide (LASIX) tablet 20 mg (CANCELED) 20 mg, Oral, DAILY, First dose on Thu07/29/13 at 1245, Until Discontinued, Routine 1245 (Not Given - Provider: Jessica Barr RN - Reason: Patient/family refused)1342 ([facility] Hold - Provider: Admin Adt - Reason: Transfer to a Procedural area)1343 ([facility] Unhold - Provider: Admin Adt) 0826 (Given - Provider: Reina Randall RN) gabapentin (NEURONTIN) capsule 300 mg (CANCELED) 300 mg, Oral, 3 TIMES DAILY, First dose on Thu07/29/13 at 1500, Until Discontinued, Routine 1342 ([facility] Hold - Provider: Admin Adt [...] RN - Reason: Order parameters not met)1342 ([facility] Hold - Provider: Admin Adt [...] - Reason: Transfer to a Procedural area)1343 ([facility] Unhold - Provider: Admin Adt) 0638 (Given - Provider: Mahesh Hurt RN) metoprolol tartrate (LOPRESSOR) tablet 50 mg (CANCELED) 50 mg, Oral, 2 TIMES DAILY, First dose on Thu07/29/13 at 1245, Until Discontinued, Routine 1245 (Not Given - Provider: Jessica Barr RN - Reason: See comment - Comment: pt took in a.m.)1342 ([facility] Hold - Provider: Admin Adt - Reason: Transfer to a Procedural area)1343 ([facility] Unhold - Provider: Admin Adt)2122 (Given - Provider: Mahesh Hurt RN) 0826 (Given - Provider: Reina Randall RN) pantoprazole (PROTONIX) tablet 20 mg 20 mg, Oral, DAILY, First dose on Thu07/30/13 at 0900, Until Discontinued, Restricted to patients on clopidpgrel (PLAVIX) who require a proton pump inhibitor 1342 ([facility] Hold - Provider: Admin Adt - Reason: Transfer to a Procedural area)1343 ([facility] Unhold - Provider: Admin Adt) 0826 (Given - Provider: Reina Randall RN) rosuvastatin (CRESTOR) tablet 10 mg (CANCELED) 10 mg, Oral, EVERY EVENING, First dose on Thu07/29/13 at 1700, Until Discontinued, Routine 1342 ([facility] Hold - Provider: Admin Adt - Reason: Transfer to a Procedural area)1343 ([facility] Unhold - Provider: Admin Adt)1700 [...] in sodium chloride 0.9% 90 mL infusion (ENERGY TECHNICIAN) (CANCELED) CONTINUOUS PRN, Starting on Thu07/29/13 at [...] MD) documented in this encounter Care Teams Material Handler Relationship Specialty Start Date End Date Sarita Chew MD [address] [place] [address] PCP - General 07/16/10 documented as of this encounter
--- OUTSIDE RECORDS SUMMARY | 2024-05-17 16:10 | XMS_ITS | Encounter Summary ---
Author Organization [facility] Address [facility] [place] [address] Care Team Providers Care Welding Foreman Name Role Phone Coni Lim MD Primary Care Provider [phone] Encounter Details Date Type Department Care Team (Latest Contact Info) Description 07/30/2013 5:12 AM EST - 07/30/2013 11:59 PM [facility] Hospital Encounter ZLEB [address] [place] [address] Edy Trimble MD [facility] [place] [address] [place] [address] Discharge Disposition: Home Social History Tobacco Use [...] Kinase 54 0 - 200 unit/L CERNER NubimetricsENNI[employer] CK-MB 1.8 0.0 - 5.0 mcg/L CERNER MILLENNIUM CKMB Index 3.3 0.0 - 5.0 mcg/u CERNER [employer]ubimetricsENNIUM Blood specimen (specimen) 07/30/2013 6:00 AM EST 07/30/2013 6:32 AM EST Narrative Resulting Agency Comment Spec In Lab Edy Damon MD CHEMISTRY ORDERABLES Performing Organization Address City/State/[facility] Co id Phone Number [facility] documented in this encounter Visit Diagnoses Not on filedocumented in this encounter Care Teams Welding Foreman Relationship Specialty Start Date End Date Coni Lim MD [address] [place] [address] PCP - General 07/16/10 documented as of this encounter
--- OUTSIDE RECORDS SUMMARY | 2024-05-17 16:10 | XMS_ITS | Encounter Summary ---
Author Organization [facility] Address [facility] [place] [address] Care Team Providers Care Tinning Equipment Tender Name Role Phone Coni Lim MD Primary Care Provider [phone] Reason for Visit * Reason Onset Date Comments Medication Refill 08/10/2013 Encounter Details Date Type Department Care Team (Late st Contact Info) Description 08/10/2013 Refill Cardiology at [address] [address] Turner Tan MD [facility] [place] [address] Medication Refill Social History Tobacco Use Types [...] Coronary atherosclerosis of unspecified type of vessel, [place] or graft documented in this encounter Care Teams Tinning Equipment Tender Relationship Specialty Start Date End Date Coni Lim MD [address] [place] [address] PCP - General 07/16/10 documented as of this encounter
--- OUTSIDE RECORDS SUMMARY | 2024-05-17 16:10 | XMS_ITS | Encounter Summary ---
Author Organization [facility] Address [facility] [place] [address] Care Team Providers Care Java Developer Architect Name Role Phone Coni Lim MD Primary Care Provider [phone] Encounter Details Date Type Department Care Team (Late st Contact Info) Description 02/14/2014 Telephone Cardiology [facility] [place] [phone] Eros Ballard MD [facility] DR [place] [address] Social History Tobacco Use Types Packs/Day Years [...] started on heparin drip [facility] documented in this encounter Plan of Treatment Not on file documented as of this encounter Visit Diagnoses Not on filedocumented in this encounter Care Teams Java Developer Architect Relationship Specialty Start Date End Date Coni Lim MD [address] [place] [address] PCP - General 07/16/10 documented as of this encounter
--- OUTSIDE RECORDS SUMMARY | 2024-05-17 16:10 | XMS_ITS | Encounter Summary ---
Author Organization [facility] [place] [address] Care Team Providers Care Dinking Machine Operator Name Role Phone Coni Lmi MD Primary Care Provider [phone] Encounter Details Date Type Department Care Team (Late st Contact Info) Description 07/27/2014 Orders Only Cardiology at [address] [phone] Oneil Newsome RN Research exam (Primary Dx) [...] trial documented in this encounter Care Teams Dinking Machine Operator Relationship Specialty Start Date End Date Coni Lim MD [address] [place] [address] PCP - General 07/16/10 documented as of this encounter
--- OUTSIDE RECORDS SUMMARY | 2024-05-17 16:11 | XMS_ITS | Encounter Summary ---
Author Organization [facility] Address [address] [place] [address] Care Team Providers Care Ski Maker Name Role Phone Coni Lim MD Primary Care Provider [phone] Encounter Details Date Type Department Care Team (Latest Contact Info) Description 01/28/2016 9:36 EDT - 01/28/2016 23:59 EDT Hospital Encounter [address] [address] Unknown, Provider, Discharge Disposition: Home or Self [...] on filedocumented in this encounter Care Teams Ski Maker Relationship Specialty Start Date End Date Coni Lim MD [address] [place] [address] PCP - General 12/17/11 documented as of this encounter
--- OUTSIDE RECORDS SUMMARY | 2024-05-17 16:11 | XMS_ITS | Clinical Summary ---
Author Organization [facility] Address [address] [place] [address] Care Team Providers Care Jewel Corner Brushing Machine Operator Name Role Phone Coni Lim MD Primary Care Provider Allergies Active Allergy Reactions Criticality Noted Date [...] Encephalopathy 04/08/2023 Acute respiratory failure with hypoxia ([facility]) 04/08/2023 Idiopathic hypotension 04/08/2023 CVA (cerebral vascular accident) ([facility]) 03/15 Anxiety and depression 02/22/2014 Unstable angina ([facility]) 02/15/2014 CAD (coronary artery disease) 02/15/2014 Syncope Surgical History Surgery Date Site/Laterality Comments GALLBLADDER SURGERY Medical History Medical History Date Comments HTN (hypertension) HLD (hyperlipidemia) DMII (diabetes mellitus, type 2) ([facility]) CAD (coronary artery disease) Smoking Depression [...] 3-dose series) 06/08 COVID-19 Vaccine (2022-24 season) 2024 Advance Directives For more information, please contact: [phone] * Full Code (Latest Code Status on [...] Comments 02/14/2014 22:30 02/16/2014 17:34 Care Teams Jewel Corner Brushing Machine Operator Relationship Specialty Start Date End Date Coni Lim MD [address] [place] [id number] PCP - General 12/17/11
--- OUTSIDE RECORDS SUMMARY | 2024-05-17 16:11 | XMS_ITS | Encounter Summary ---
Author Organization [facility] Address [address] [place] [address] Care Team Providers Care Ultimate Hoops Scoreboard Operator Name Role Phone Coni Lim MD Primary Care Provider Reason for Visit * (Routine/Next Available) - Receiving Office to Obtain Authorization Specialty Diagnoses / Procedures Referred By Contac t Referred To Contact Procedures CT OUTSIDE IMAGES HEAD AND NECK Unknown, Provider, Referral ID Status Reason Start Date Expiration Date Visits Requested Visits Authorized [id number] Receiving Office to Obtain Authorization 04/07/2023 1 1 Encounter Details Date Type Department Care Team (Latest Contact Info) Description 04/07/2023 20:14 EDT - 04/07/2023 23:44 EDT Hospital Encounter [facility] Secondary [place] Discharge Disposition: Home [...] on filedocumented in this encounter Care Teams Ultimate Hoops Scoreboard Operator Relationship Specialty Start Date End Date Coni Lim MD [address] [place] [id number] PCP - General 12/17/11 documented as of this encounter
--- OUTSIDE RECORDS SUMMARY | 2024-05-17 16:11 | XMS_ITS | Encounter Summary ---
[place] [address] Care Team Providers Care Content Administrator Name Role Phone Coni Lim MD Primary Care Provider [phone] Encounter Details Date Type Department Care Team (Late st Contact Info) Description 05/28/2012 Telephone Cardiology at [address] [phone] Savanah Duncan LPN Social History Tobacco Use [...] 30 days)____work up to be done in [facility] 05/28/12 Date of EKG: work up on 05/28/12 in [facility] Medications:verified. Stop Metformin 48 hour prior ( [...] ekg dates. Information not yet available from [facility]. documented in this encounter Plan of Treatment Not on file documented as of this encounter Visit Diagnoses Not on filedocumented in this encounter Care Teams Content Administrator Relationship Specialty Start Date End Date Coni Lim MD [address] [place] [address] PCP - General 07/16/10 documented as of this encounter
--- OUTSIDE RECORDS SUMMARY | 2024-05-17 16:11 | XMS_ITS | Encounter Summary ---
Author Organization [facility] Address [address] [place] [address] Care Team Providers Care Firearms Inspector Name Role Phone Coni Lim MD Primary Care Provider [phone] Encounter Details Date Type Department Care Team (Late st Contact Info) Description 01/28/2016 Results Only [facility] [phone] Romi Montanez MD [address] [place] [phone] Social History Tobacco Use Types Packs/Day [...] ? ROMEO COE ? Accession #: ? [id number] ? : ? 1965 (Age: 50) ??M [...] Morgan 01/30/2016 9:50 AM End of Report [facility] 01/28/2016 8:56 EDT 01/30/2016 8:56 EDT Romi Montanez MD PATHOLOGY ORDERABL ES [facility] [address] [place] [address] documented in this encounter Visit Diagnoses Not on filedocumented in this encounter Care Teams Firearms Inspector Relationship Specialty Start Date End Date Coni Lim MD [address] [place] [id number] PCP - General 12/17/11 documented as of this encounter
--- OUTSIDE RECORDS SUMMARY | 2024-05-17 16:11 | XMS_ITS | Encounter Summary ---
Author Organization [facility] Address [facility] [place] [address] Care Team Providers Care Retail Furniture Sales Name Role Phone Sarita Chew MD Primary Care Provider [phone] Encounter Details Date Type Department Care Team (Latest Contact Info) Description 06/03/2012 5:57 PM EDT - 06/04/2012 10:33 AM EDT Hospital Encounter [place] [id number] Kathie Cotter MD [facility] [place] [address] CAD (coronary artery disease), non-obstructive; S/P coronary [...] appointments: During 8am-5pm Thursday through Thursday call [phone] to speak with a nurse in the cardiology clinic All other times call [phone] and ask to speak to the senior maintenance mechanic arson investigator. Return to work: One week Driving: No driving for 48 hours after catheterization. Follow up Appointments: PCP: SARITA CHEW MD , Call for appointment in 1-2 weeks. Switching Clerk: Dr Leyva, You should be seen in 3-4 weeks for follow up. Please call for appointment * Attachments The following attachments cannot be sent through Care Everywhere. * PERCUTANEOUS CORONARY INTERVENTION: WHAT TO EXPECT AT HOME (GERMAN) * CHEST PAIN (ANGINA): AFTER YOUR VISIT (GERMAN) documented in this encounter Medications at Time [...] NSR Meds: Current facility-administered medications ordered in [facility] Medication Dose Route Frequency Provider Last [...] in sodium chloride 0.9% 50 mL infusion (OFFENSIVE COORDINATOR) Intravenous Continuous PRN Kathie Cotter MD Last Dose: 194.3 mg/hr at 06/03/12 1509 ??? DISCONTD: adenosine 90 mg in sodium chloride 0.9% 90 mL infusion (OFFENSIVE COORDINATOR) Intravenous Continuous PRN Kathie Cotter MD Last [...] Family History: Father-, pre-mature CAD (age 46), OR, CABG Uncle +CAD Mother, DM, HTN. HLP [...] Seen by Dr Leyva in March; [facility] +JACINDA candidate. 2. HTN, stable, 3. [...] 06/04/2012 10:04 PM EDTAssociated Order(s): SCAN DOC: SYNCHRONIZER * Provider, Scanning - 06/03/2012 4:39 PM [...] to the outpatient cardiac rehabilitation program at [facility] was discussed. A referral will be [...] appointments: During 8am-5pm Thursday through Thursday call [phone] to speak with a nurse in the cardiology clinic All other times call [phone] and ask to speak to the senior maintenance mechanic arson investigator. Return to work: One week Driving: No driving for 48 hours after catheterization. Follow up Appointments: PCP: SARITA CHEW MD , Call for appointment in 1-2 weeks. Switching Clerk: Dr Leyva, You should be seen in 3-4 weeks for follow up. Please call for appointment General Instructions None Future Appointments and Orders Future Appointments: Provider: Department: Dept Phone: Center: 06/04/2012 4:45 PM Echo Inpatient Add-On [facility] Non-Inv Card Lab [phone] None Provider Contact Information: Dr. Kathie Stephen Section of Cardiology [facility] [phone] Discharge References/Attachments: Discharge References/Attachments None Signed: Bryan Stephen MD DATE: 06/04/2012 * Miscellaneous - Provider, Scanning - 06/03/2012 11:02 AM EDT documented in this encounter Plan of Treatment Not on file documented as of this encounter Procedures Procedure Name Priority Date/Time Associated Diagnosis Comments CARDIAC CATHETERIZATION Routine 06/07/20 2:15 PM EDT SYNCHRONIZER SCAN 06/04/2012 10:04 PM EDT ECHOCARDIOGRAM TRANSTHORACIC [...] CAD (coronary artery disease), non-obstructive CARDIAC ENZYMES ([facility]) STAT 06/03/2012 4:00 PM EDT CARDIAC CATHETERIZATION 06/03/20 12 2:02 PM EDT CP POCT GLUCOSE Routine 06/03/2012 11:11 AM EDT documented in this encounter Results * Cardiac Catheterization (06/07/2012 2:15 PM EDT) Anatomical Region Laterality Modality Other Narrative 06/03/2012 4:39 PM EDT Procedure Note Provider, Scanning - 06/03/2012 4:39 PM EDT Kathie Cotter MD CARDIAC CATH ORDERAB LES * SCAN DOC: SYNCHRONIZER (06/04/2012 10:04 PM EDT) Anatomical Region Laterality Modality Other Narrative 06/06/2012 2:36 AM EDT Procedure Note Provider, Scanning - 06/04/2012 10:04 PM EDT Scanning Provider MEDIA MGR SCAN EXT O RDR/RSLT * Echo Transthoracic (Complete) (06/04/2012 8:57 AM EDT) [facility] Signature EF 60 HEARTiPowerUp SYSTEM Anatomical Region Laterality Modality Other 06/04/2012 Narrative 06/04/2012 9:13 AM EDT Procedure: ? Transthoracic Echocardiogram Patient: ? COELHO ROMEO A ?(Age): 1965(46) Med Rec#: ?[id number] ? Sex: ?M ? Site Loc: ?[facility] ? Ht / Wt: ??176(cm)/122(kg) Pt. Loc: ? Adult Floor ?BSA: ?2.44 Study Date: ?06/04/2012 ? Pt. Type: Inpatient Tape: ? Referring: Kathie Cotter Repairer Typewriter: Khoi Gaines [facility] Repairer Typewriter 2: Mason Duron ([id number]) Diagnosis: ??Chest pain (786.50) CPT Code(s): ??Echo Full (65382), ??Spectral Doppler (16354), ??Color Doppler (57171), ??Definity (41577BM), Indication(s): ??Chest Pain Rhythm: HR ?BP 78 [...] ? Mid-Inferior ?Normal ? Mid-Inferoseptal ?Normal ? [place]-Septal ? Normal ? [place]-Anterior ? Normal ? [place]-Lateral ?Normal ? [place]-Inferior ? Normal ? [place]-Tip ?Normal ? Chambers ?Value ?Units (Range) ? [...] 06/04/2012 09:12:51 Images reviewed and interpretation verified [facility] Cardiac Ultrasound Laboratory Procedure Note Christos Buchanan MD - 06/04/2012 Procedure: Transthoracic Echocardiogram Patient: LAQUITA Pop (Age): 1965(46) Med Rec#: [id number] Sex: M Site Loc: [facility] Ht / Wt: 176(cm)/122(kg) Pt. Loc: Adult Floor BSA: 2.44 Study Date: 06/04/2012 Pt. Type: Inpatient Tape: Referring: Kathie Cotter Repairer Typewriter: Khoi Gaines [facility] Repairer Typewriter 2: Mason Duron ([id number]) Diagnosis: Chest pain (786.50) CPT Code(s): Echo Full (63462), Spectral Doppler (43981), Color Doppler (02593), Definity (10736WB), Indication(s): Chest Pain Rhythm: HR BP 78 [...] Normal Mid-Posterolateral Normal Mid-Inferior Normal Mid-Inferoseptal Normal [place]-Septal Normal [place]-Anterior Normal [place]-Lateral Normal [place]-Inferior Normal [place]-Tip Normal Chambers Value Units (Range) LV EF [...] 06/04/2012 09:12:51 Images reviewed and interpretation verified [facility] Cardiac Ultrasound Laboratory Kathie Cotter MD ECHO ORDERABLES * POCT GLUCOSE (06/04/2012 7:06 AM EDT) [facility] Glucose, POC 183 60 - 199 mg/dL [facility] Comment: Supplemental ranges: <110 mg/dL before meals <200 mg/dL all other times of the day Blood specimen (specimen) 06/04/2012 7:06 AM EDT 06/04/2012 7:06 AM EDT Kathie Cotter MD POINT OF CARE TEST O RDERABLES Performing Organization Address [facility] de Phone Number [facility] * EKG 12-LEAD (06/04/2012 6:07 AM EDT) [facility] Ventricular rate 77 BPM MUSE SYSTEM Atrial Rate 77 BPM MUSE SYSTEM P-R Interval 150 ms MUSE SYSTEM QRS Duration 92 ms MUSE SYSTEM Q-T Interval 372 ms MUSE SYSTEM QTC Calculated (Bezet) 420 ms MUSE SYSTEM Calculated P [place] 30 degrees MUSE SYSTEM Calculated R [place] 37 degrees MUSE SYSTEM Calculated T [place] 30 degrees MUSE SYSTEM INTERPRETATION Normal sinus rhythm Normal ECG When compared with ECG of 03-JUN-2012 16:38, No significant change was found Confirmed by MD Mirtha, Cali ([id number]) on 06/04/2012 1:38:26 PM MUSE SYSTEM 06/04/2012 6:07 AM EDT 06/04/2012 1:38 PM EDT Unknown ECG ORDERABLES Performing Organization Address [facility] Co de Phone Number MUSE SYSTEM * (ABNORMAL) BMP w/fasting Glucose (06/04/2012 6:05 AM EDT) [facility] Glucose Fasting 185(H) 65 - 99 [...] of Diabetes Mellitus, Position Statement from the [place] Diabetes Association. ??Diabetes Care, Volume 33, Supplement [...] Cotter MD CHEMISTRY ORDERABLES [facility] * (ABNORMAL) LDL CHOLESTEROL, DIRECT (06/04/2012 4:45 AM EDT) LDL Cholesterol, Direct 108(H) <=99 mg/dL [facility] Comment: The National Cholesterol Education Program (NCEP) has set the following guidelines for LDL Cholesterol: Reference range: ?? Optimal: ?<100 mg/dL ?? Near Optimal/Above Optimal: ?? 100-129 mg/dL ?? Borderline high: ?130-159 mg/dL ?? High: ? 160-189 mg/dL ?? Very high: ?>uj=654 mg/dL RACHEL 2001: 28519):[id number] Blood specimen (specimen) 06/04/2012 4:45 AM EDT [...] Gran Absolute 0.02 0.00 - 0.05 x10(3)/mcL [facility] Blood specimen (specimen) 06/04/2012 4:45 AM EDT 06/04/2012 4:55 AM EDT Kathie Cotter MD HEMATOLOGY ORDERABLE S Performing Organization Address [facility] de Phone Number [facility] * Alkaline Phosphatase (06/04/2012 4:45 AM EDT) Alkaline Phosphatase 53 40 - 120 unit/L [facility] Blood specimen (specimen) 06/04/2012 4:45 AM EDT 06/04/2012 4:55 AM EDT Narrative Resulting Agency Comment Spec In Lab Kathie Cotter MD CHEMISTRY ORDERABLES Performing Organization Address [facility] de Phone Number [facility] * Alanine Aminotransferase (06/04/2012 4:45 AM EDT) Alanine Aminotransferase 31 0 - 55 unit/L [facility] Blood specimen (specimen) 06/04/2012 4:45 AM EDT 06/04/2012 4:55 AM EDT Narrative Resulting Agency Comment Spec In Lab Kathie Cotter MD CHEMISTRY ORDERABLES Performing Organization Address [facility] de Phone Number [facility] * Aspartate Aminotransferase (06/04/2012 4:45 AM EDT) Aspartate Aminotransferase 31 0 - 39 unit/L [facility] Blood specimen (specimen) 06/04/2012 4:45 AM EDT 06/04/2012 4:55 AM EDT Narrative Resulting Agency Comment Spec In Lab Kathie Cotter MD CHEMISTRY ORDERABLES Performing Organization Address [facility] Co de Phone Number [facility] * (ABNORMAL) Hemoglobin A1c (06/04/2012 4:45 AM EDT) Hemoglobin A1c 6.5(H) 4.3 - 6.1 % [facility] Estimated Average Glucose 140 mg/dL [facility] Comment: eAG equivalents for HbA1c percentages: HbA1c(%) [...] into estimated average glucose values. ??Diabetes Care 2008:31(8):0942-6685. Blood specimen (specimen) 06/04/2012 4:45 AM EDT 06/04/2012 4:55 AM EDT Narrative Resulting Agency Comment Spec In Lab Kathie Cotter MD CHEMISTRY ORDERABLES Performing Organization Address [facility] Co de Phone Number [facility] * (ABNORMAL) Lipid panel (fasting) (06/04/2012 4:45 AM EDT) [facility] Cholesterol, Total 186 <=199 mg/dL [facility] Comment: Recommendations of the NCEP Adult Treatment Panel for the following risk cutoff thresholds for the [place] population: Desirable: <200 mg/dL Borderline High: 200-239 mg/dL High: > or = 240 mg/dL Triglyceride 412(H) <=149 mg/dL [facility] Comment: Reference Range: Normal triglycerides: ??<150 mg/dL Borderline high: ??150-199 mg/dL High: ??200-499 mg/dL Very high: ??>bz=064 mg/dL RACHEL 2001; 285(19):5937-3145 HDL Cholesterol 25(L) >=40 mg/dL [facility] Comment: Reference range: ??Low HDL: ?? < 40 mg/dL ??Normal: ?40-60 mg/dL ??Desirable: > 60 mg/dL RACHEL 2001; 285(19):3427-4720 LDL Cholesterol Not Calculated <=99 mg/dL [facility] Comment: Since a calculated LDL value is not valid for triglycerides greater than 400 mg/dl, a direct LDL determination is performed instead. Reference range: ?? Optimal: ?<100 mg/dL ?? Near Optimal/Above Optimal: ?? 100-129 mg/dL ?? Borderline high: ?130-159 mg/dL ?? High: ? 160-189 mg/dL ?? Very high: ?>ff=347 mg/dL RACHEL 2001: 285(19):0392-7474 Cholesterol/HDL Ratio 7.4 ratio [facility] Comment: A Cholesterol to HDL ratio below 4:1 is desirable. ??Studies suggest that increased CAD risk occurs at ratios above 5 for females and above 6 for men. ? [place] Heart Association ??(http://www.americanheart.org) ? Pallavi Int Med, 1994; 121:641 ? AM J Med, 1998; 105(1A):48S Blood specimen (specimen) 06/04/2012 4:45 AM EDT 06/04/2012 4:55 AM EDT Narrative Resulting Agency Comment Spec In Lab Kathie Cotter MD CHEMISTRY ORDERABLES Performing Organization Address [facility] de Phone Number [facility] * (ABNORMAL) Cardiac Enzymes (06/04/2012 4:45 AM EDT) Troponin-T 0.07(H) <=0.03 ng/mL [facility] Comment: 0.03 ng/mL: Represents the 99th percentile [...] consensus document of the Joint Society of Cardiology/[place] College of Cardiology Committee for the redefinition of myocardial infarction. Journal of the [place] College of Cardiology 2000; 36: 959-969] Creatine Kinase 150 0 - 200 unit/L [facility] Comment:result rechecked-[facility] Blood specimen (specimen) 06/04/2012 4:45 AM EDT 06/04/2012 4:55 AM EDT Narrative Resulting Agency Comment Spec In Lab Kathie Cotter MD CHEMISTRY ORDERABLES Performing Organization Address [facility] Co de Phone Number [facility] * CBC (with Diff) (06/04/2012 4:45 AM EDT) White Blood Cell 6.4 4.0 - 10.0 x10(3)/mcL [facility] Red Blood Cell 4.78 4.63 - 6.08 x10(6)/mcL [facility] Hemoglobin 14.6 13.7 - 17.5 gm/dL [facility] Hematocrit 42.7 40.0 - 51.0 % [facility] Mean Cell Volume 89.3 79.0 - 92.0 fL [facility] Mean Cell Hemoglobin 30.5 25.6 - 32.2 pg [facility] Mean Cell Hemoglobin Concentration 34.2 32.0 - 36.5 gm/dL [facility] Platelet 154 145 - 370 x10(3)/mcL [facility] RDW Standard Deviation 41.0 35.0 - 46.0 fL [facility] RDW coefficient of variation 12.7 10.9 - 14.4 % [facility] Mean Platelet Volume 10.1 9.0 - 12.0 fL [facility] Blood specimen (specimen) 06/04/2012 4:45 AM EDT 06/04/2012 4:55 AM EDT Narrative Resulting Agency Comment Spec In Lab Kathie Cotter MD HEMATOLOGY ORDERABLE S Performing Organization Address [facility] Co de Phone Number [facility] * POCT GLUCOSE (06/03/2012 9:31 PM EDT) Glucose, POC 163 60 - 199 mg/dL [facility] Comment: Supplemental ranges: <110 mg/dL before meals <200 mg/dL all other times of the day Blood specimen (specimen) 06/03/2012 9:31 PM EDT 06/03/2012 9:31 PM EDT Kathie Cotter MD POINT OF CARE TEST O RDERABLES Performing Organization Address [facility] Co de Phone Number [facility] * POCT GLUCOSE (06/03/2012 6:10 PM EDT) Glucose, POC 97 60 - 199 mg/dL [facility] Comment: Supplemental ranges: <110 mg/dL before meals <200 mg/dL all other times of the day Blood specimen (specimen) 06/03/2012 6:10 PM EDT 06/03/2012 6:10 PM EDT Kathie Cotter MD POINT OF CARE TEST O RDERABLES Performing Organization Address [facility] Co de Phone Number [facility] * EKG 12 Lead (06/03/2012 4:38 PM EDT) Ventricular rate 74 BPM MUSE SYSTEM Atrial Rate 74 BPM MUSE SYSTEM P-R Interval 150 ms MUSE SYSTEM QRS Duration 92 ms MUSE SYSTEM Q-T Interval 372 ms MUSE SYSTEM QTC Calculated (Bezet) 412 ms MUSE SYSTEM Calculated P [place] 46 degrees MUSE SYSTEM Calculated R [place] 25 degrees MUSE SYSTEM Calculated T [place] 29 degrees MUSE SYSTEM INTERPRETATION Normal sinus rhythm Normal ECG When compared with ECG of 18-JAN-2010 07:42, No significant change was found Confirmed by MD Shannon Robert ([id number]) on 06/04/2012 7:52:23 AM MUSE SYSTEM 06/03/2012 4:38 PM EDT 06/04/2012 7:52 AM EDT Kathie Cotter MD ECG ORDERABLES Performing Organization Address [facility] de Phone Number MUSE SYSTEM * Cardiac Enzymes (06/03/2012 4:00 PM EDT) [facility] Troponin-T <0.03 <=0.03 ng/mL [facility] Comment: 0.03 ng/mL: Represents the 99th percentile [...] consensus document of the Joint Society of Cardiology/[place] College of Cardiology Committee for the redefinition of myocardial infarction. Journal of the [place] College of Cardiology 2000; 36: 959-969] Creatine Kinase 41 0 - 200 unit/L [facility] Blood specimen (specimen) 06/03/2012 4:00 PM EDT 06/03/2012 4:12 PM EDT Narrative Resulting Agency Comment Spec In Lab Kathie Cotter MD CHEMISTRY ORDERABLES Performing Organization Address City/[facility]/ZIP Co de Phone Number [facility] * POCT GLUCOSE (06/03/2012 11:11 AM EDT) Glucose, POC 147 60 - 199 mg/dL [facility] Comment: Supplemental ranges: <110 mg/dL before meals <200 mg/dL all other times of the day Blood specimen (specimen) 06/03/2012 11:11 AM EDT 06/03/2012 11:11 AM EDT Kathie Cotter MD POINT OF CARE TEST O RDERABLES Performing Organization Address [facility] Co de Phone Number [facility] documented in this encounter Visit Diagnoses Diagnosis CAD (coronary artery disease), non-obstructive- Primary Coronary atherosclerosis of unspecified type of vessel, [place] or graft S/P coronary artery stent placement [...] in sodium chloride 0.9% 90 mL infusion (OFFENSIVE COORDINATOR) (CANCELED) Intravenous, CONTINUOUS PRN, Starting on Martha 06/03/12 at 1511, Until Martha 06/03/12 at 1734, Cath (Intra-Procedure), Routine 1511 (New Bag - Provider: Dustin Carlton Jr.)1521 (Stopped - Provider: Tawanda Agarwal RN) bivalirudin (ANGIOMAX) 250 mg in sodium chloride 0.9% 50 mL infusion (OFFENSIVE COORDINATOR) (CANCELED) Intravenous, CONTINUOUS PRN, Starting on Martha [...] MD) documented in this encounter Care Teams Retail Furniture Sales Relationship Specialty Start Date End Date Sarita Chew MD [address] [place] [address] PCP - General 07/16/10 documented as of this encounter
--- OUTSIDE RECORDS SUMMARY | 2024-05-17 16:11 | XMS_ITS | Encounter Summary ---
Author Organization [facility] [place] [address] Care Team Providers Care Propagator Laborer Name Role Phone Coni Lim MD Primary Care Provider [phone] Reason for Visit * Reason Comments Chest Pain Encounter Details Date Type Department Care Team (Late st Contact Info) Description 05/13/2011 11:30 AM EDT Procedure visit [facility] [address] [place] [address] Rafael Nieto Jr., MD [address] [place] [id number] Chest pain (Primary Dx) Social History Tobacco [...] Test- Final Report Romeo Coe : 1965 [facility], [address] [facility] [id number] Primary Physician: CONI LIM MD Cc David [...] unspecified documented in this encounter Care Teams Propagator Laborer Relationship Specialty Start Date End Date Coni Lim MD [address] [place] [id number] PCP - General 07/16/10 documented as of this encounter
--- OUTSIDE RECORDS SUMMARY | 2024-05-17 16:11 | XMS_ITS | Encounter Summary ---
Author Organization [facility] Address [address] [place] [address] Care Team Providers Care Painting Supervisor Name Role Phone Coni Lim MD Primary Care Provider [phone] Reason for Visit * Auth/Cert (Routine) Specialty Diagnoses / Procedures Referred By Contsigifredo t Referred To Contact Diagnoses Encephalopathy Seizures Referral ID Status Reason Start Date Expiration Date Visits Re quested Visits Authorized [id number] 1 1 Encounter Details Date Type Department Care Team (Late st Contact Info) Description 04/07/2023 23:45 EDT - 04/09/2023 13:45 EDT Hospital Encounter [place] [address] General Medicine Telemetry Unit [address] [place], [place] [id number] Gillian Randolph MD 111 [facility], Level 5 [place] [phone] Park Coe MD MPH [address] [phone] Acute respiratory failure with hypoxia (HCC-CMS); Cerebrovascular [...] 04/08/2023 ??? Acute respiratory failure with hypoxia ([facility]) ([facility]) 04/08/2023 ??? Idiopathic hypotension 04/08/2023 ??? Anxiety and depression 02/22/2014 ??? Unstable angina ([facility]) ([facility]) 02/15/2014 ??? CAD (coronary artery disease) 02/15/2014 ??? CVA (cerebral vascular accident) ([facility]) 03/15/2015 Resolved Hospital Problems No resolved problems to display. Transition of care: [facility] Transition of Care report automatically routed to PCP office on discharge.Additional handoff communication performed via: Fax Clinical Issues Needing Follow-up 1. 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 Recommended follow-up tests/procedures needed: - Routine follow-up with PCP 3. Anticoagulation on discharge: No Recent Labs 04/08/23 0122 INR 1.1 4. Changes to goals of care at time of discharge (if applicable): N/A Hospital Course: Romeo Coelho is a 57 y/o man with a history of CAD s/p PCI and prior CVA, who was admitted to the MICU from [facility] after being found down and unresponsive. His found him down outside after he went out to mow the lawn. At [facility] he was found to have a GCS of 3 and was intubated for airway protection. He underwent CT head and CT angio head/neck out of concern for midbrain or pontine stroke, both of which were unrevealing. He was transferred to the [facility] MICU for further management of his depressed [...] today: 35 Minutes Park Coe MD MPH [facility] Inpatient Service 04/09/2023 14:33 documented in [...] Means Destination Comment s Home or Self Halfway documented in this encounter Progress Notes * [...] accessing necessary care and/or follow-up after discharge. pug mill operator helper/Lmft will continue to follow patient's progress and [...] hx CVA, DM2, HLD. Presented to [facility] after being found down by . Was seen ~30min prior while mowing the lawn. In ED pt intubated for airway protection. Transfer to [facility] MICU. Was able to quickly extubated and [...] LDA for any identified wounds ??? Add Bedford image for any suspected PI or non surgical wounds ??? Order wound consult if suspected PI identified ? ? If Anibal is < or = to 16, initiate Pressure Injury Prevention Bundle ([id number]). 04/08/2023 5:48 * Martha Randall RT - 04/07/2023 2350 EDT Respiratory Progress Note Indications for Respiratory therapy: Mechanical Ventilation Data Vitals: Heart Rate: 78 BPM, Resp: 16, SpO2: 97 % FIO2/O2 Device: , , O2 Device: Intubated, FIO2 %: 30 % RT Orders: Continuous RT Orders (From admission, onward) Start Ordered 04/08/23 0500 Mechanical Ventilation-Invasive [[id number]] RT Continuous Discontinue References: ARDS/ALI Protocol Post Op Protocol Weaning Protocol ETCO2 Protocol Question Answer Comment Mode: Assist Control Control Type: Volume Control VT (mL) 510 Set Rate (f/min) 16 Peep (cm H2O) 5 Autoflow: Yes Protocols: Weaning ETCO2 Protocol: Yes 04/08/23 0023 Active Orders Action/Events Respiratory events; Pt transferred from [facility], received report from Transport Team. Pt [...] 1 Patient was admitted from: Outside Hospital: [facility]. [facility] Assessment The patient is a 57 [...] prior symptoms May follow with neurologist in [facility]? #History of CVA - as above [...] CVA [facility] being [facility] down and unresponsive. His found him down outside after he went out to mow the [employer]. At [facility] he was found to have a GCS of 3 and was intubated for airway protection. He underwent CT head and CT angio head/neck out of concern for midbrain or pontine stroke, both of which were unrevealing. He was transferred to the [facility] MICU for further management of his depressed mental status. Collateral obtained from patient's : Patient was in normal state of health. Went out to [employer] and then mow the [employer]. Was seen maybe30 min prior. Then she [...] No known supplements. Only recent travel to [facility]. No known possible toxic ingestions. No [...] sinus rhythm, rate 81, normal axis, normal UT interval, normal QTc Brandon Denny, MS4 Signed, [...] and depression Acute respiratory failure with hypoxia ([facility]) ([facility]) Idiopathic hypotension CVA (cerebral vascular accident) ([facility]) Critical Care time was provided in [...] Care - Aiyana Almonte RN - 04/09/2023 0788 EDT Data: VSS on RA. AOX3. No [...] LDA for any identified wounds ??? Add Bedford image for any suspected PI or non surgical wounds ??? Order wound consult if suspected PI identified ? ? If Anbial is < or = to 16, initiate Pressure Injury Prevention Bundle ([id number]). 04/08/2023 19:39 * Plan of Care - [...] room air. Denies pain. Transportedvia wheelchair to [place] [address] by RN. Report endorsed to Steffanie PHAM [...] Keenan Laws MD - 04/08/2023 1821 EDT [facility] Medicine Transfer Summary Service Date: 04/08/2023 Admit Date: 04/08/23 Primary Care Provider: Coni Lim Chief Complaint: Syncope HPI Romeo Coelho is a 57 y.o. male with a PMHx of CAD s/p prior PCI and prior CVA, DM2, HLD who presented as a transfer from [facility] on 04/07/2023 intubated and sedated for airway protection after being brought to [facility] via EMS for syncope. Per records, the patient's story is consistent with feeling tired and dehydrated prior to the event, his first of this kind. Eval prior to arrival at the [facility] MICU included head and neck imaging which [...] Depression ??? DMII (diabetes mellitus, type 2) ([facility]) ??? Fibromyalgia ??? Gout ??? HLD [...] above interpretation and agree with the findings. [id number] Assessment Romeo Coelho is a 57 y.o. [...] daily in AM Metop 50 tartrate BID (MOWING MACHINE OPERATOR 200mg Succ) Mood Fibromyalgia Bupropion 150mg BID Cymbalta 60mg BID Gabapentin 800mg BID Topiramate 25mg GERD MOWING MACHINE OPERATOR PPI Restless Leg Pramipexole MOWING MACHINE OPERATOR DM SSI VTE Prophylaxis Ambulate Code: Full [...] DM2, HTN, neuropathy and gout, transferred to [facility] from [facility] on 04/07/23 after a syncopal event that occurred after he had mowed his lawn.Per records from [facility], he was found down by his and brought to [facility] via EMS. He was started [...] or cardiac symptoms. Evaluation for stroke and NC (inc troponins and TTE) was unrevealing. Of note his U tox is positive for Benzos, Fentanyl and Cannabis. He acknowledges regular marijuana use (it is prescribed to me) and reports having a niece who struggles with an opiate use disorder,but denies using drugs other than marijuana. Available records from [facility] do not reveal evidence that [...] Patient admitted overnight to MICU, intubated from [facility]. Patient briefly on pressors and propofol [...] 7:42 EDT) 04/14/2023 7:42 EDT Scan 2 Automotive Glass Installer PROCEDURE/MINOR GUSTAVO GICAL ORDERABLES * ECG REPORT - SCANNED (04/13/2023 13:22 EDT) 04/13/2023 13:2 2 EDT Scan 2 Automotive Glass Installer PROCEDURE/MINOR GUSTAVO GICAL ORDERABLES * BETA HYDROXYBUTYRATE (04/09/2023 12:15 EDT) Beta Hydroxybutyrate <0.1 <0.4 mmol/L 04/09/2023 12:48 EDT [facility] Blood VENOUS BLOOD / Unknown Venipuncture / Unknown 04/09/2023 12:15 EDT 04/09/2023 12:24 EDT Keeley Quiroz PA-C CHEMISTRY & BLOOD GAS ORDERABLES [facility] [address] [place] [address] * (ABNORMAL) BASIC METABOLIC PANEL (BMP) (04/09/2023 12:15 EDT) Sodium 140 136 - 145 mmol/L 04/09/2023 12:42 EDT [facility] Potassium 3.7 3.5 - 5.0 mmol/L 04/09/2023 12:42 EDT [facility] Chloride 110 96 - 110 mmol/L 04/09/2023 12:42 EDT [facility] CO2 Total 19(L) 22 - 32 mmol/L 04/09/2023 12:42 T [facility] Anion Gap 11 5 - 14 mmol/L 04/09/2023 12:42 T [facility] Glucose 122(H) 70 - 99 mg/dl 04/09/2023 12:42 T [facility] Calcium 8.8 8.5 - 10.5 mg/dL 04/09/2023 12:42 [facility] BUN 11 10 - 26 mg/dL 04/09/2023 12:42 [facility] Creatinine 0.68 0.66 - 1.25 mg/dL 04/09/2023 12:42 [facility] eGFR 110 >60 mL/min/1.73 m2 04/09/2023 12:42 T [facility] Blood VENOUS BLOOD / Unknown Venipuncture / Unknown 04/09/2023 12:15 EDT 04/09/2023 12:24 EDT Keeley Quiroz PA-C CHEMISTRY & BLOOD GAS ORDERABLES [facility] [address] [place] [address] * LACTIC ACID (04/09/2023 12:14 EDT) Lactic Acid 0.9 <=2.0 mmol/L 04/09/2023 12:53 EDT [facility] Blood VENOUS BLOOD / Unknown Venipuncture / Unknown 04/09/2023 12:14 EDT 04/09/2023 12:25 EDT Keeley Quiroz PA-C CHEMISTRY & BLOOD GAS ORDERABLES Performing Organization Address City/[facility]/ZIP Co de Phone Number [facility] [address] [place] [address] * (ABNORMAL) BASIC METABOLIC PANEL (BMP) (04/09/2023 9:30 EDT) Sodium 140 136 - 145 mmol/L 04/09/2023 11:13 T [facility] Potassium 3.7 3.5 - 5.0 mmol/L 04/09/2023 11:13 [facility] Comment:Slight hemolysis christo ntified, interpret with caution as hemolysis will elevate potassium result. Chloride 110 96 - 110 mmol/L 04/09/2023 11:13 [facility] CO2 Total 15(L) 22 - 32 mmol/L 04/09/2023 11:13 [facility] Anion Gap 15(H) 5 - 14 mmol/L 04/09/2023 11:13 [facility] Glucose 203(H) 70 - 99 mg/dl 04/09/2023 11:13 [facility] Calcium 8.8 8.5 - 10.5 mg/dL 04/09/2023 11:13 [facility] BUN 12 10 - 26 mg/dL 04/09/2023 11:13 [facility] Comment: Slight hemolysis identified, interpret with caution as results may be affected due to hemolysis. Creatinine 0.78 0.66 - 1.25 mg/dL 04/09/2023 11:13 [facility] eGFR 105 >60 mL/min/1.7 3m2 04/09/2023 11:13 [facility] Blood VENOUS BLOOD / Unknown Venipuncture / Unknown 04/09/2023 9:30 EDT 04/09/2023 10:39 EDT Memo Odonnell MD CHEMISTRY & BLOOD GA S ORDERABLES Performing Organization Address City/[facility]/ZIP Co de Phone Number [facility] [address] [place] [address] * (ABNORMAL) COMPLETE BLOOD COUNT (04/09/2023 9:30 EDT) Pathologist [facility] WBC 8.85 4.00 - 10.40 K/cmm 04/09/2023 10:47 [facility] RBC 4.69 4.36 - 5.78 M/cmm 04/09/2023 10:47 [facility] Hemoglobin 13.9 13.8 - 17.3 g/dL 04/09/2023 10:47 [facility] HCT 40.9 39.5 - 50.2 % 04/09/2023 10:47 [facility] MCV 87 81 - 95 fL 04/09/2023 10:47 [facility] MCH 29.6 27.6 - 33.0 pg 04/09/2023 10:47 [facility] MCHC 34.0 32.8 - 36.4 g/dL 04/09/2023 10:47 [facility] RDW-CV 14.1 <14.2 % 04/09/2023 10:47 [facility] RDW-SD 45.1 <46.0 fl 04/09/2023 10:47 [facility] PLT 137(L) 141 - 377 K/cmm 04/09/2023 10:47 [facility] MPV 11.8 9.5 - 12.7 fL 04/09/2023 10:47 [facility] Blood VENOUS BLOOD / Unknown Venipuncture / Unknown 04/09/2023 9:30 EDT 04/09/2023 10:39 EDT Memo Odonnell MD HEMATOLOGY & PF4 ORD ERABLES [facility] [address] [place] [address] * (ABNORMAL) POCT GLUCOSE, INTERFACED (04/09/2023 8:25 EDT) Pathologist [facility] Glucose, POC 154(H) 70 - 100 mg/dL 04/09/2023 8:26 EDT [facility] HN LAB POC COMMENT (GLUCOSE) Test Performed by Nursing Services 04/09/2023 8:26 EDT [facility] Blood CAPILLARY BLOOD / Unknown 04/09/2023 8:25 EDT 04/09/2023 8:26 EDT Abdi Peoples POINT OF CARE TEST O RDERABLES Performing Organization Address [facility]/ZIP Co de Phone Number [facility] [address] [place] [address] * (ABNORMAL) POCT GLUCOSE, INTERFACED (04/08/2023 20:50 EDT) Glucose, POC 128(H) 70 - 100 mg/dL 04/08/2023 20:51 EDT [facility] HN LAB POC COMMENT (GLUCOSE) Test Performed by Nursing Services 04/08/2023 20:51 EDT [facility] Blood CAPILLARY BLOOD / Unknown 04/08/2023 20:50 EDT 04/08/2023 20:51 EDT Gillian Randolph MD POINT OF CARE TEST ORDERABLES Performing Organization Address [facility] Co de Phone Number [facility] [address] [place] [address] * (ABNORMAL) POCT GLUCOSE, INTERFACED (04/08/2023 18:11 EDT) Glucose, POC 131(H) 70 - 100 mg/dL 04/08/2023 18:12 EDT [facility] HN LAB POC COMMENT (GLUCOSE) Test Performed by Nursing Services 04/08/2023 18:12 EDT [facility] Blood CAPILLARY BLOOD / Unknown 04/08/2023 18:11 EDT 04/08/2023 18:12 EDT Rick Cuellar MD POINT OF CARE TEST ORDERABLES Performing Organization Address City/[facility]/ZIP Co de Phone Number [facility] [address] [place] [address] * ECG REPORT - SCANNED (04/08/2023 14:56 EDT) 04/08/2023 14:5 6 EDT Scan 2 Automotive Glass Installer PROCEDURE/MINOR GUSTAVO GICAL ORDERABLES * (ABNORMAL) POCT GLUCOSE, INTERFACED (04/08/2023 12:37 EDT) Pathologist [facility] Glucose, POC 115(H) 70 - 100 mg/dL 04/08/2023 12:39 EDT [facility] HN LAB POC COMMENT (GLUCOSE) Test Performed by Nursing Services 04/08/2023 12:39 EDT [facility] Blood CAPILLARY BLOOD / Unknown 04/08/2023 12:37 EDT 04/08/2023 12:39 EDT Gillian Randolph MD POINT OF CARE TEST ORDERABLES [facility] [address] [place] [address] * TRANSTHORACIC ECHO (TTE) COMPLETE W/DOPPLER W/CF [...] color Doppler.The study was interpreted by [facility]. Pertinent images and [...] i-STAT 7.38 7.31 - 7.41 04/08/2023 5:15 [facility] pCO2, Venous, i-STAT 29(L) 41 - 51 mmHg 04/08/2023 5:15 [facility] pO2, Venous, i-STAT 57(H) 30 - 50 mmHg 04/08/2023 5:15 [facility] TCO2, Venous, i-STAT 18(L) 22 - 28 mmol/L 04/08/2023 5:15 [facility] O2 Saturation, Venous, i-STAT 89(H) 60 - 85 % 04/08/2023 5:15 [facility] Base Excess(+) / Deficit(-), Venous, i-STAT -7(L) -2 - 3 mmol/L 04/08/2023 5:15 EDT [facility] Blood VENOUS BLOOD / Unknown 04/08/2023 5:11 EDT 04/08/2023 5:15 EDT Narrative [facility] - 04/08/2023 5:15 EDT Test Performed by Respiratory Antonio Melecio POINT OF CARE TEST O RDERABLES Performing Organization Address City/State/[facility] Co de Phone Number [facility] [address] [place] [address] * XR FEEDING TUBE PLACEMENT (04/08/2023 1:45 [...] above interpretation and agree with the findings. [id number] Procedure Note Ramirez Mendez MD - 04/08/2023 [...] the above interpretation andagree with the findings. [id number] Ac Fish MD IMG DIAGNOSTIC I MAGING [...] above interpretation and agree with the findings. [id number] Narrative 04/08/2023 8:53 EDT XR CHEST PORTABLE [...] the above interpretation andagree with the findings. [id number] Antonio Majano IMG DIAGNOSTIC IMAGI NG ORDERABLES * (ABNORMAL) FENTANYL AND METABOLITE CONFIRMATION PANEL (04/08/2023 1:22 EDT) Pathologist [facility] Fentanyl Confirmation >40(A) <2 ng/mL 04/09/2023 10:36 EDT [facility] Norfentanyl Confirmation 49(A) <10 ng/mL 04/09/2023 10:36 EDT [facility] Urine URINE / Unknown Urine Collect / Unknown 04/08/2023 1:22 EDT 04/08/2023 1:28 EDT Narrative [facility] - 04/09/2023 10:36 EDT Testing performed by: [facility] [address] [place] [address], [facility] [address] [address] Heel Varnisher: Marco Morocho MD; CLIA # [id number] Antonio Majano GEN LAB UNIT COLLECT ORDERABLES [facility] [address] [place] [address] [phone] * CK (04/08/2023 1:22 EDT) Pathologist [facility] CK 82 <=250 U/L 04/08/2023 4:29 EDT [facility] Blood VENOUS BLOOD / Unknown Venipuncture / Unknown 04/08/2023 1:22 EDT 04/08/2023 1:28 EDT Antonio Majano CHEMISTRY & BLOOD GA S ORDERABLES [facility] [address] [place] [address] * MAGNESIUM (04/08/2023 1:22 EDT) Pathologist [facility] Magnesium 2.0 1.7 - 2.8 mg/dL 04/08/2023 2:08 EDT [facility] Blood VENOUS BLOOD / Unknown Venipuncture / Unknown 04/08/2023 1:22 EDT 04/08/2023 1:28 EDT Gillian Randolph MD CHEMISTRY & BLOOD GAS ORDERABLES [facility] [address] [place] [address] * (ABNORMAL) POCT GLUCOSE, INTERFACED (04/08/2023 1:22 EDT) Pathologist [facility] Glucose, POC 151(H) 70 - 100 mg/dL 04/08/2023 1:23 EDT [facility] HN LAB POC COMMENT (GLUCOSE) Test Performed by Nursing Services 04/08/2023 1:23 EDT [facility] Blood CAPILLARY BLOOD / Unknown 04/08/2023 1:22 EDT 04/08/2023 1:23 EDT Gillian Randolph MD POINT OF CARE TEST ORDERABLES Performing Organization Address City/[facility]/ZIP Co de Phone Number [facility] [address] [place] [address] * MRSA PCR (04/08/2023 1:22 EDT) [facility] MRSA/Staph aureus Result Staphylococcus aureus detected by PCR (MRSA NOT detected) 04/08/2023 10:57 EDT [facility] Swab BOTH ANTERIOR NARES / Unknown Swab / Unknown 04/08/2023 1:22 EDT 04/08/2023 1:44 EDT Antonio MICHEL - GENER AL ORDERABLES Performing Organization Address City/[facility]/ZIP Co de Phone Number [facility] [address] [place] [address] * (ABNORMAL) POLYSUBSTANCE USE PANEL, URINE (04/08/2023 1:22 EDT) [facility] Buprenorphine Screen, Urine Negative <5 ng/mL 04/08/2023 11:51 EDT [facility] Oxycodone Screen, Urine Negative <100 ng/mL 04/08/2023 11:51 [facility] Cotinine Screen, Urine Negative <500 ng/mL 04/08/2023 11:51 EDT [facility] Benzodiazepines Screen, Urine Positive(A) <200 ng/mL 04/08/2023 11:51 [facility] Amphetamines Screen, Urine Negative <1000 ng/mL 04/08/2023 11:51 [facility] Cocaine Metabolite Screen, Urine Negative <150 ng/mL 04/08/2023 11:51 [facility] THC Metabolites Screen, Urine Positive(A) <50 ng/mL 04/08/2023 11:51 [facility] Barbiturates Screen, Urine Negative <200 ng/mL 04/08/2023 11:51 [facility] Opiates Screen, Urine Negative <300 ng/mL 04/08/2023 11:51 [facility] Alcohol Metabolite (EtG) Screen, Urine Negative <500 ng/mL 04/08/2023 11:51 [facility] Methadone Screen, Urine Negative <300 ng/mL 04/08/2023 11:51 [facility] Fentanyl Screen with Reflex to Confirmation, U Positive(A) <1 ng/mL 04/08/2023 11:51 [facility] Comment: Trazodone is known to cross react with the Fentanyl immunoassay and may cause a false positive Urine URINE / Unknown Urine Collect / Unknown 04/08/2023 1:22 EDT 04/08/2023 1:28 EDT Narrative [facility] - 04/08/2023 11:51 EDT Testing performed by: [facility] [address] [place] [address], [address], [place] [address] Heel Varnisher: Marco Morocho MD; CLIA # [id number] Antonio MAURER LAB UNIT COLLECT ORDERABLES [facility] [address] [facility], [address] [place] [address], [facility] [phone] * FIBRINOGEN (04/08/2023 1:22 EDT) Pathologist [facility] Fibrinogen 323 171 - 384 mg/dL 04/08/2023 1:53 EDT [facility] Blood VENOUS BLOOD / Unknown Venipuncture / Unknown 04/08/2023 1:22 EDT 04/08/2023 1:32 EDT [employer] & PF4 ORD GRANTBLES Performing Organization Address [facility] de Phone Number [facility] [address] [place] [id number] * PROTIME (04/08/2023 1:22 EDT) [facility] I.N.R. 1.1 0.9 - 1.1 Ratio 04/08/2023 1:53 EDT [facility] Pro Time 12.0 9.7 - 12.8 secs 04/08/2023 1:53 EDT [facility] Blood VENOUS BLOOD / Unknown Venipuncture / Unknown 04/08/2023 1:22 EDT 04/08/2023 1:32 EDT Narrative [facility] [facility] - 04/08/2023 1:53 EDT Moderate Intensity Coumadin INR = 2.0-3.0 Adjustments in anticoagulant therapy dose should be based on the INR and NOT on the Protime. [employer] & PF4 ORD Pacer ElectronicsBLES Performing Organization Address [facility] de Phone Number [facility] [address] [place] [address] * ETHANOL, BLOOD (04/08/2023 1:22 EDT) Pathologist [facility] Ethanol, Blood <10 <10 mg/dL mg/dL 04/08/2023 1:52 EDT [facility] Comment:Healthy, non-drinkin g individuals will have an ethanol concentration of <10 mg/dL. Blood VENOUS BLOOD / Unknown Venipuncture / Unknown 04/08/2023 1:22 EDT 04/08/2023 1:28 EDT Proximic CHEMISTRY & BLOOD GA S ORDERABLES [facility] [address] [place] [address] * TSH (04/08/2023 1:22 EDT) TSH 0.61 0.47 - 4.68 mIU/L 04/08/2023 2:25 EDT [facility] Blood VENOUS BLOOD / Unknown Venipuncture / Unknown 04/08/2023 1:22 EDT 04/08/2023 1:28 EDT Narrative [facility] - 04/08/2023 2:25 EDT The results of this assay can be falsely lowered due to the consumption of Biotin. Proximic CHEMISTRY & BLOOD GA S ORDERABLES Performing Organization Address [facility] Co de Phone Number [facility] [address] [place] [address] * NT PRO BNP (04/08/2023 1:22 EDT) Pathologist [facility] NT-pro BNP <20 <299 pg/mL 04/08/2023 2:04 EDT [facility] Comment: In the acute setting NT-proBNP values <300 pg/mL have a 98% NPV for excluding acute heart failure. In outpatient populations, NT-proBNP values <125 have a 99% NPV for excluding heart failure. Blood VENOUS BLOOD / Unknown Venipuncture / Unknown 04/08/2023 1:22 EDT 04/08/2023 1:28 EDT [employer]xim[employer] CHEMISTRY & BLOOD GA S ORDERABLES Performing Organization Address City/[facility] Co de Phone Number [facility] [address] [place] [address] * (ABNORMAL) COMPREHENSIVE METABOLIC PANEL (CMP) (04/08/2023 1:22 EDT) Sodium 144 136 - 145 mmol/L 04/08/2023 1:52 EDT [facility] Potassium 3.8 3.5 - 5.0 mmol/L 04/08/2023 1:52 [facility] Chloride 111(H) 96 - 110 mmol/L 04/08/2023 1:52 [facility] CO2 Total 19(L) 22 - 32 mmol/L 04/08/2023 1:52 [facility] Glucose 152(H) 70 - 99 mg/dl 04/08/2023 1:52 [facility] BUN 10 10 - 26 mg/dL 04/08/2023 1:52 [facility] Creatinine 0.92 0.66 - 1.25 mg/dL 04/08/2023 1:52 [facility] eGFR 98 >60 mL/min/1.7 3m2 04/08/2023 1:52 [facility] Total Protein 6.2(L) 6.3 - 8.2 g/dL 04/08/2023 1:52 [facility] Albumin 3.7 3.4 - 4.9 g/dL 04/08/2023 1:52 [facility] Alkaline Phosphatase 53 38 - 126 U/L 04/08/2023 1:52 [facility] AST 25 15 - 46 U/L 04/08/2023 1:52 [facility] ALT 18 <50 U/L 04/08/2023 1:52 [facility] Bilirubin, Total <0.5 <1.4 mg/dL 04/08/20 23 1:52 [facility] Calcium 8.5 8.5 - 10.5 mg/dL 04/08/2023 1:52 [facility] Albumin/Globulin Ratio 1.5 1.0 - 2.5 g/dL 04/08/2023 1:52 [facility] Anion Gap 14 5 - 14 mmol/L 04/08/2023 1:52 [facility] Blood VENOUS BLOOD / Unknown Venipuncture / Unknown 04/08/2023 1:22 [facility] 04/08/2023 1:28 EDT Antonio Majano CHEMISTRY & BLOOD GA S ORDERABLES [facility] [address] [place] [address] * (ABNORMAL) COMPLETE BLOOD COUNT (04/08/2023 1:22 EDT) WBC 13.25(H) 4.00 - 10.40 K/cmm 04/08/2023 1:37 EDT [facility] RBC 4.61 4.36 - 5.78 M/cmm 04/08/2023 1:37 EDT [facility] Hemoglobin 13.2(L) 13.8 - 17.3 g/dL 04/08/2023 1:37 EDT [facility] HCT 40.8 39.5 - 50.2 % 04/08/2023 1:37 EDT [facility] MCV 89 81 - 95 fL 04/08/2023 1:37 EDT [facility] MCH 28.6 27.6 - 33.0 pg 04/08/2023 1:37 EDT [facility] MCHC 32.4(L) 32.8 - 36.4 g/dL 04/08/2023 1:37 T [facility] RDW-CV 14.5(H) <14.2 % 04/08/2023 1:37 EDT [facility] RDW-SD 46.4(H) <46.0 fl 04/08/2023 1:37 EDT [facility] PLT 203 141 - 377 K/cmm 04/08/2023 1:37 EDT [facility] MPV 10.3 9.5 - 12.7 fL 04/08/2023 1:37 [facility] Blood VENOUS BLOOD / Unknown Venipuncture / Unknown 04/08/2023 1:22 EDT 04/08/2023 1:28 EDT Antonio Majano HEMATOLOGY & PF4 ORD ERABLES [facility] [address] [place] [address] * EKG 12-LEAD (04/08/2023 0:23 EDT) 04/08/2023 0:23 EDT Narrative [facility] - 04/08/2023 14:50 EDT ? [facility] ? Test Date: ?2023-04-08 Pat Name: ? ROMEO LAQUITA ?Department: ?? MICU ? Room: ? M412 Gender: ? Male ? Biodiesel Production Associate: ?? : ?1965 ? Requested By: MELECIO SINGH Order Number: [id number] ? Reading MD: ?? BRANDO LAYNE MD ? Measurements Intervals ?[place] ? Rate: ? 81 ? P: ?29 UT: ? 153 ?QRS: ?33 QRSD: ? 98 ? T: ?41 QT: ? 362 ? QTc: ?422 ? Interpretive Statements SINUS RHYTHM I reviewed the tracing and have either agreed or edited the findings in this report. Electronically Signed On 04-08-2023 14:50:57 EDT by BRANDO LAYNE MD. 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 Electronically Signed On 04-08-2023 14:50:57 EDT by BRANDO BARRAZA. Antonio Majano CARDIAC ECG ORDERABL ES [facility] documented in this encounter Visit Diagnoses Diagnosis Encephalopathy- Primary Encephalopathy, unspecified Acute respiratory failure with hypoxia (HCC-CMS) Acute respiratory failure Cerebrovascular accident (CVA), unspecified mechanism (HCC-CMS) Encephalopathy Encephalopathy, unspecified Syncope, unspecified syncope type Acute respiratory failure with hypoxia (HCC-CMS) Acute respiratory failure Unstable angina (HCC-CMS) ([facility]) Intermediate coronary syndrome CAD (coronary artery disease) Coronary atherosclerosis of unspecified type of vessel, [place] or graft Anxiety and depression Dysthymic disorder [...] Until Discontinued, Routine 2137 (Given - Provider: Ariam Brown RN) 0903 (Given - Provider: Aiyana [...] 03/24 documented in this encounter Care Teams Painting Supervisor Relationship Specialty Start Date End Date Coni Lim MD [address] [place] [address] PCP - General 12/17/11 documented as of this encounter
--- OUTSIDE RECORDS SUMMARY | 2024-05-17 16:11 | XMS_ITS | Encounter Summary ---
Author Organization [facility] Address [address] [place] [address] Care Team Providers Care Wallpaper Consultant Name Role Phone Coni Lim MD Primary Care Provider [phone] Encounter Details Date Type Department Care Team (Late st Contact Info) Description 05/17/2022 Lab Requisition [facility] Pathology & Laboratory Medicine - [facility] [address] [place] [address] Outr Resulting Lab, Provider Social History Tobacco [...] Factor <8.6 <12.0 IU/mL 05/18/2022 15:59 EDT [facility] Blood VENOUS BLOOD / Unknown 05/16/2022 12:56 EDT 05/18/2022 15:42 EDT Provider Outr Resulting Lab CHEMISTRY & BLOOD GAS ORDERABLES Performing Organization Address [facility] Co de Phone Number [facility] [address] [place] [address] * ANTI NUCLEAR AB (BERRY), IFA (05/16/2022 12:56 EDT) BERRY Interpretation Negative Negative 2021 13:48 EDT [facility] Comment:No titer performed, BERRY Screen is negative. Blood VENOUS BLOOD / Unknown 05/16/2022 12:56 EDT 05/18/2022 15:42 EDT Narrative [facility] - 05/19/2022 13:48 EDT Results were obtained with the INOVA NOVA Lite HEp-2 BERRY Kit by indirect immunofluorescence. Provider Outr Resulting Lab IMMUNOLOGY A ND SEROLOGY ORDERABLES Performing Organization Address [facility]/ZIP Co de Phone Number [facility] [address] [place] [address] documented in this encounter Visit Diagnoses Not on filedocumented in this encounter Care Teams Wallpaper Consultant Relationship Specialty Start Date End Date Coni Lim MD [address] [place] [address] PCP - General 12/17/11 documented as of this encounter
--- OUTSIDE RECORDS SUMMARY | 2024-05-17 16:11 | XMS_ITS | Encounter Summary ---
Author Organization [facility] Address [address] [place] [address] Care Team Providers Care Wire Tinner Name Role Phone Coni Lim MD Primary Care Provider [phone] Reason for Visit * (Routine/Next Available) - Receiving Office to Obtain Authorization Specialty Diagnoses / Procedures Referred By Contsigifredo t Referred To Contact Procedures CT OUTSIDE IMAGES CHEST ABDOMEN PELVIS Unknown, Provider, Referral ID Status Reason Start Date Expiration Date Visits Requested Visits Authorized [id number] Receiving Office to Obtain Authorization 04/07/2023 1 1 Encounter Details Date Type Department Care Team (Latest Contact Info) Description 04/07/2023 20:11 EDT - 04/07/2023 20:13 EDT Hospital Encounter [facility] [place] Discharge Disposition: Home [...] filedocumented in this encounter Care Teams Wire Tinner Relationship Specialty Start Date End Date Coni Lim MD [address] [place] [address] PCP - General 12/17/11 documented as of this encounter
--- OUTSIDE RECORDS SUMMARY | 2024-05-17 16:11 | XMS_ITS | Encounter Summary ---
Author Organization [facility] Address [address] [place] [address] Care Team Providers Care Supreme Court Judge Name Role Phone Coni Lim MD Primary Care Provider [phone] Reason for Visit * (Routine/Next Available) - Receiving Office to Obtain Authorization Specialty Diagnoses / Procedures Referred By Contsigifredo t Referred To Contact Procedures CT OUTSIDE IMAGES HEAD Unknown, Provider, Referral ID Status Reason Start Date Expiration Date Visits Requested Visits Authorized [id number] Receiving Office to Obtain Authorization 04/07/2023 1 1 Encounter Details Date Type Department Care Team (Latest Contact Info) Description 04/07/2023 20:10 EDT Hospital Encounter [facility] [place] Discharge Disposition: Home [...] on filedocumented in this encounter Care Teams Supreme Court Judge Relationship Specialty Start Date End Date Coni Lim MD [address] [place] [address] PCP - General 12/17/11 documented as of this encounter
--- OUTSIDE RECORDS SUMMARY | 2024-05-17 16:11 | XMS_ITS | Encounter Summary ---
Author Organization [facility] Address [place] [address] Care Team Providers Care Manganese Heater Name Role Phone Coni Lim MD Primary Care Provider [phone] Encounter Details Date Type Department Care Team (Late st Contact Info) Description 05/31/2012 Orders Only Cardiology at [address] [phone] [place], [place] [facility] [place] [address] CAD (coronary artery disease), non-obstructive (Primary Dx) [...] Coronary atherosclerosis of unspecified type of vessel, [place] or graft documented in this encounter Care Teams Manganese Heater Relationship Specialty Start Date End Date Coni Lim MD [address] [place] [address] PCP - General 07/16/10 documented as of this encounter
--- OUTSIDE RECORDS SUMMARY | 2024-05-17 16:11 | XMS_ITS | Referral Summary ---
Author Organization [facility] Address [address] [place] [address] Care Team Providers Care Fund Controller Name Role Phone Coni Lim MD Primary Care Provider [phone] Allergies Active Allergy Reactions Criticality Noted Date [...] Encephalopathy 04/08/2023 Acute respiratory failure with hypoxia ([facility]) 04/08/2023 Idiopathic hypotension 04/08/2023 CVA (cerebral vascular accident) ([facility]) 03/15 Anxiety and depression 02/22/2014 Unstable angina ([facility]) 02/15/2014 CAD (coronary artery disease) [...] Advance Directives For more information, please contact: [phone] * Full Code (Latest Code Status on [...] Comments 02/14/2014 22:30 02/16/2014 17:34 Care Teams Fund Controller Relationship Specialty Start Date End Date Coni Lim MD [address] [place] [phone] PCP - General 12/17/11
--- OUTSIDE RECORDS SUMMARY | 2024-05-17 16:11 | XMS_ITS | Encounter Summary ---
Author Organization [facility] Address [address] [place] [address] Care Team Providers Care Lens Inserter Name Role Phone Coni Lim MD Primary Care Provider [phone] Encounter Details Date Type Department Care Team [...] on filedocumented in this encounter Care Teams Lens Inserter Relationship Specialty Start Date End Date Coni Lim MD [address] [place] [address] PCP - General 12/17/11 documented as of this encounter
--- OUTSIDE RECORDS SUMMARY | 2024-05-17 16:11 | XMS_ITS | Encounter Summary ---
Author Organization [facility] Address [address] [place] [address] Care Team Providers Care Director It Project Name Role Phone Coni Lim MD Primary Care Provider [phone] Reason for Visit * (Routine/Next Available) - Receiving Office to Obtain Authorization Specialty Diagnoses / Procedures Referred By Contac t Referred To Contact Procedures XR OUTSIDE IMAGES CHEST Unknown, Provider, Referral ID Status Reason Start Date Expiration Date Visits Requested Visits Authorized [id number] Receiving Office to Obtain Authorization 04/07/2023 1 1 Encounter Details Date Type Department Care Team (Latest Contact Info) Description 04/07/2023 20:10 EDT Hospital Encounter [facility] [place] Discharge Disposition: [...] filedocumented in this encounter Care Teams Director It Project Relationship Specialty Start Date End Date Coni Lim MD [address] [place] [address] PCP - General 12/17/11 documented as of this encounter
--- OUTSIDE RECORDS SUMMARY | 2024-05-17 16:11 | XMS_ITS | Encounter Summary ---
Author Organization [facility] Address [address] [place] [address] Care Team Providers Care General Duty Nurse Name Role Phone Coni Lim MD Primary Care Provider [phone] Encounter Details Date Type Department Care Team (Late st Contact Info) Description 09/30/2021 Lab Requisition [facility] Pathology & Laboratory Medicine - [facility] [address] [place] [address] Yoon Martinez MD [address] [place] [address] [address] [place], [place] [id number] Encounter for screening for malignant neoplasm of [...] explore management options, if applicable. 10/01/2021 17:48 [facility] Final Diagnosis A. COLON, ASCENDING, POLYPS X5, BIOPSY: - Fragments of tubular adenomas. B. COLON, DESCENDING, POLYP, BIOPSY: - Hyperplastic polyp. C. COLON, SIGMOID, POLYPS X3, BIOPSY: - Hyperplastic polyps. D. RECTUM, POLYP, BIOPSY: - Tubular adenoma. 10/01/2021 17:48 [facility] Attestation By the signature below, the attending physician certifies that they have 1) personally conducted a gross and/or microscopic examination of the described specimen(s), and/or personally interpreted the results of laboratory testing of the described specimen(s), and 2) personally rendered or confirmed the above diagnosis. 10/01/2021 17:48 [facility] at 1748 Clinical History Colon CA screening, family Hx colon CA 10/01/2021 17:48 [facility] Gross Description A. [...] LENORE MACIAS(ASCP) 10/01/2021 7:36 10/01/2021 17:48 EST [facility] Performing Lab [facility] 10/01/2021 17:48 EST [facility] Scanned Images 10/01/2021 17:48 EST [facility] Tissue SPECIMEN FROM [...] EST Yoon Martinez MD PATHOLOGY ORDERA AIRAM [facility] [address] [place] [address] documented in this encounter Visit Diagnoses Diagnosis Encounter for screening for malignant neoplasm of colon Special screening for malignant neoplasms, colon documented in this encounter Care Teams General Duty Nurse Relationship Specialty Start Date End Date Coni Lim MD [address] [place] [address] PCP - General 12/17/11 documented as of this encounter
--- OUTSIDE RECORDS SUMMARY | 2024-05-17 16:11 | XMS_ITS | Encounter Summary ---
Author Organization [facility] Address [facility] [place] [address] Care Team Providers Care Distance Education Faculty Liaison Name Role Phone Sarita Lim MD Primary Care Provider [phone] Encounter Details Date Type Department Care Team (Late st Contact Info) Description 06/03/2012 9:55 AM EDT - 06/03/2012 10:55 AM EDT [place] [id number] Kathie Cotter MD [facility] [address] CARDIAC CATHETERIZATION Social History Tobacco Use Types [...] encounter Discharge Instructions * Patient Instructions* Bryan Stehpen MD - 06/03/2012 1:37 PM EDT Call your doctor if: Chest pain, dyspnea, pain or swelling in legs occurs. If you have non-emergent questions between now and the time of your follow up appointments: During 8am-5pm Thursday through Thursday call [phone] to speak with a nurse in the cardiology clinic All other times call [phone] and ask to speak to the community development worker online banking specialist. Return to work: One week Driving: No driving for 48 hours after catheterization. Follow up Appointments: PCP: SARITA LIM MD , Call for appointment in 1-2 weeks. Emt Driver: Dr Leyva, You should be seen in 3-4 weeks for follow up. Please call for appointment * Attachments The following attachments cannot be sent through Care Everywhere. * PERCUTANEOUS CORONARY INTERVENTION: WHAT TO EXPECT AT HOME (MAORI) * CHEST PAIN (ANGINA): AFTER YOUR VISIT (MAORI) documented in this encounter Medications at Time [...] NSR Meds: Current facility-administered medications ordered in [facility] Medication Dose Route Frequency Provider [...] in sodium chloride 0.9% 50 mL infusion (RASPBERRY CHECKER) Intravenous Continuous PRN Kathie Cotter MD Last Dose: 194.3 mg/hr at 06/03/12 1509 ??? DISCONTD: adenosine 90 mg in sodium chloride 0.9% 90 mL infusion (RASPBERRY CHECKER) Intravenous Continuous PRN Kathie Cotter MD Last [...] Family History: Father-, pre-mature CAD (age 46), RI, CABG Uncle +CAD Mother, DM, HTN. HLP [...] to arthritis and fibromyalgia Provider: LENORE HOFFMAN [id number] documented in this encounter Procedure Notes * Provider, Scanning - 06/04/2012 10:04 PM EDTAssociated Order(s): SCAN DOC: INTERNET SITE DESIGNER * Provider, Scanning - 06/03/2012 4:39 PM [...] to the outpatient cardiac rehabilitation program at [facility] was discussed. A referral will be [...] ??? CAD (coronary artery disease), non-obstructive - [facility] 2009 post abnormal nuc stress [...] appointments: During 8am-5pm Thursday through Thursday call [phone] to speak with a nurse in the cardiology clinic All other times call [phone] and ask to speak to the community development worker online banking specialist. Return to work: One week Driving: No driving for 48 hours after catheterization. Follow up Appointments: PCP: SARITA LIM MD , Call for appointment in 1-2 weeks. Emt Driver: Dr Levya, You should be seen in 3-4 weeks for follow up. Please call for appointment General Instructions None Future Appointments and Orders Future Appointments: Provider: Department: Dept Phone: Center: 06/04/2012 4:45 PM Echo Inpatient [facility] Non-Inv Card Lab [phone] None Provider Contact Information: Dr. Kathie Stephen Section of Cardiology [facility] [phone] Discharge References/Attachments: Discharge References/Attachments None Signed: Bryan Stephen MD DATE: 06/04/2012 * Miscellaneous - Provider, Scanning - 06/03/2012 11:02 AM EDT documented in this encounter Plan of Treatment Not on file documented as of this encounter Procedures Procedure Name Priority Date/Time Associated Diagnosis Comments CARDIAC CATHETERIZATION Routine 06/07/20 12 2:15 PM EDT INTERNET SITE DESIGNER SCAN 06/04/2012 10:04 PM EDT ECHOCARDIOGRAM TRANSTHORACIC [...] CAD (coronary artery disease), non-obstructive CARDIAC ENZYMES [place]) STAT 06/03/2012 4:00 PM EDT CARDIAC CATHETERIZATION 06/03/20 12 2:02 PM EDT CP POCT GLUCOSE Routine 06/03/2012 11:11 AM EDT documented in this encounter Results * Cardiac Catheterization (06/07/2012 2:15 PM EDT) Anatomical Region Laterality Modality Other Narrative 06/03/2012 4:39 PM EDT Procedure Note Provider, Scanning - 06/03/2012 4:39 PM EDT Kathie Cotter MD CARDIAC CATH ORDERAB LES * SCAN DOC: INTERNET SITE DESIGNER (06/04/2012 10:04 PM EDT) Anatomical Region Laterality Modality Other Narrative 06/06/2012 2:36 AM EDT Procedure Note Provider, Scanning - 06/04/2012 10:04 PM EDT Scanning Provider MEDIA MGR SCAN EXT O RDR/RSLT * Echo Transthoracic (Complete) (06/04/2012 8:57 AM EDT) [facility] EF 60 HEARTRetellity SYSTEM Anatomical Region Laterality Modality Other 06/04/2012 Narrative 06/04/2012 9:13 AM EDT Procedure: ? Transthoracic Echocardiogram Patient: ? LAQUITA Pop ?(Age): 1965(46) Med Rec#: ?[id number] ? Sex: ?M ? [place] ? Ht / Wt: ??176(cm)/122(kg) Pt. Loc: ? Adult Floor ?BSA: ?2.44 Study Date: ?06/04/2012 ? Pt. Type: Inpatient Tape: ? Referring: Kathie Cotter Ceiling Cleaner: Khoi Gaines [facility] Ceiling Cleaner 2: Mason Duron ([id number]) Diagnosis: ??Chest pain (786.50) CPT Code(s): ??Echo Full (81832), ??Spectral Doppler (24489), ??Color Doppler (40610), ??Definity (64747RP), Indication(s): ??Chest Pain Rhythm: HR ?BP 78 [...] Mid-Inferior ?Normal ? Mid-Inferoseptal ?Normal ? [place]-Septal ? Normal ? [place]-Anterior ? Normal ? [place]-Lateral ?Normal ? [place]-Inferior ? Normal ? [place]-Tip ?Normal ? Chambers ?Value ?Units (Range) ? [...] 06/04/2012 09:12:51 Images reviewed and interpretation verified [facility] Cardiac Ultrasound Laboratory Procedure Note Christos Buchanan MD - 06/04/2012 Procedure: Transthoracic Echocardiogram Patient: LAQUITA Pop (Age): 1965(46) Med Rec#: [id number] Sex: M [place] [facility] Ht / Wt: 176(cm)/122(kg) Pt. Loc: Adult Floor BSA: 2.44 Study Date: 06/04/2012 Pt. Type: Inpatient Tape: Referring: Kathie Cotter Ceiling Cleaner: Khoi Gaines [facility] Ceiling Cleaner 2: Mason Duron ([id number]) Diagnosis: Chest pain (786.50) CPT Code(s): Echo Full (34256), Spectral Doppler (79295), Color Doppler (83312), Definity (70675UB), Indication(s): Chest Pain Rhythm: HR BP 78 [...] Mid-Posterolateral Normal Mid-Inferior Normal Mid-Inferoseptal Normal [place]-Septal Normal [place]-Anterior Normal [place]-Lateral Normal [place]-Inferior Normal [place]-Tip Normal Chambers Value Units (Range) LV EF [...] 06/04/2012 09:12:51 Images reviewed and interpretation verified [facility] Cardiac Ultrasound [facility] Kathie Cotter MD ECHO ORDERABLES * POCT GLUCOSE (06/04/2012 7:06 AM EDT) Pathologist [facility] Glucose, POC 183 60 - 199 mg/dL [facility] Comment: Supplemental ranges: <110 mg/dL before meals <200 mg/dL all other times of the day Blood specimen (specimen) 06/04/2012 7:06 AM EDT 06/04/2012 7:06 AM EDT Kathie Cotter MD POINT OF CARE TEST O RDERABLES Performing Organization Address City/[facility]/ZIP Co de Phone Number [facility] * EKG 12-LEAD (06/04/2012 6:07 AM EDT) Ventricular rate 77 BPM MUSE SYSTEM Atrial Rate 77 BPM MUSE SYSTEM P-R Interval 150 ms MUSE SYSTEM QRS Duration 92 ms MUSE SYSTEM Q-T Interval 372 ms MUSE SYSTEM QTC Calculated (Bezet) 420 ms MUSE SYSTEM Calculated P [place] 30 degrees MUSE SYSTEM Calculated R [place] 37 degrees MUSE SYSTEM Calculated T [place] 30 degrees MUSE SYSTEM INTERPRETATION Normal sinus rhythm Normal ECG When compared with ECG of 03-JUN-2012 16:38, No significant change was found Confirmed by MD Mirtha, Cali ([id number]) on 06/04/2012 1:38:26 PM MUSE SYSTEM 06/04/2012 6:07 AM EDT 06/04/2012 1:38 PM EDT Unknown ECG ORDERABLES Performing Organization Address City/[facility]/ZIP Co de Phone Number MUSE SYSTEM * (ABNORMAL) BMP w/fasting Glucose (06/04/2012 6:05 AM EDT) [facility] Glucose Fasting 185(H) 65 - 99 mg/dL [...] of Diabetes Mellitus, Position Statement from the [place] Diabetes Association. ??Diabetes Care, Volume 33, Supplement 1, Aug 2009 Blood Urea Nitrogen 10 10 - 20 mg/dL [facility] MILLENNIUM Creatinine 0.82 0.80 - 1.50 mg/dL [facility] MILLENNIUM Comment: Please note that the pediatric reference intervals supplied above were not validated at [facility]. Results from pediatric patients should be interpreted [...] Cotter MD CHEMISTRY ORDERABLES [facility] * (ABNORMAL) LDL CHOLESTEROL, DIRECT (06/04/2012 4:45 AM EDT) LDL Cholesterol, Direct 108(H) <=99 mg/dL [facility] Comment: The National Cholesterol Education Program (NCEP) has set the following guidelines for LDL Cholesterol: Reference range: ?? Optimal: ?<100 mg/dL ?? Near Optimal/Above Optimal: ?? 100-129 mg/dL ?? Borderline high: ?130-159 mg/dL ?? High: ? 160-189 mg/dL ?? Very high: ?>vz=211 mg/dL RACHEL 2001: 285(19):4412-4876 Blood specimen (specimen) 06/04/2012 4:45 AM EDT [...] Gran Absolute 0.02 0.00 - 0.05 x10(3)/mcL [facility] Blood specimen (specimen) 06/04/2012 4:45 AM EDT 06/04/2012 4:55 AM EDT Kathie Cotter MD HEMATOLOGY ORDERABLE S Performing Organization Address [facility] de Phone Number [facility] * Alkaline Phosphatase (06/04/2012 4:45 AM EDT) Alkaline Phosphatase 53 40 - 120 unit/L [facility] Blood specimen (specimen) 06/04/2012 4:45 AM EDT 06/04/2012 4:55 AM EDT Narrative Resulting Agency Comment Spec In Lab Kathie Cotter MD CHEMISTRY ORDERABLES Performing Organization Address [facility] de Phone Number [facility] * Alanine Aminotransferase (06/04/2012 4:45 AM EDT) Alanine Aminotransferase 31 0 - 55 unit/L [facility] Blood specimen (specimen) 06/04/2012 4:45 AM EDT 06/04/2012 4:55 AM EDT Narrative Resulting Agency Comment Spec In Lab Kathie Cotter MD CHEMISTRY ORDERABLES Performing Organization Address [facility] Co de Phone Number [facility] * Aspartate Aminotransferase (06/04/2012 4:45 AM EDT) Aspartate Aminotransferase 31 0 - 39 unit/L [facility] Blood specimen (specimen) 06/04/2012 4:45 AM EDT 06/04/2012 4:55 AM EDT Narrative Resulting Agency Comment Spec In Lab Kathie Cotter MD CHEMISTRY ORDERABLES Performing Organization Address [facility] de Phone Number [facility] * (ABNORMAL) Hemoglobin A1c (06/04/2012 4:45 AM EDT) [facility] Hemoglobin A1c 6.5(H) 4.3 - 6.1 % [facility] Estimated Average Glucose 140 mg/dL [facility] Comment: eAG equivalents for HbA1c percentages: HbA1c(%) [...] into estimated average glucose values. ??Diabetes Care 2008:31(8):5898-2670. Blood specimen (specimen) 06/04/2012 4:45 AM EDT 06/04/2012 4:55 AM EDT Narrative Resulting Agency Comment Spec In Lab Kathie Cotter MD CHEMISTRY ORDERABLES Performing Organization Address [facility] Co de Phone Number [facility] * (ABNORMAL) Lipid panel (fasting) (06/04/2012 4:45 AM EDT) [facility] Cholesterol, Total 186 <=199 mg/dL [facility] Comment: Recommendations of the NCEP Adult Treatment Panel for the following risk cutoff thresholds for the [place] population: Desirable: <200 mg/dL Borderline High: 200-239 mg/dL High: > or = 240 mg/dL Triglyceride 412(H) <=149 mg/dL [facility] Comment: Reference Range: Normal triglycerides: ??<150 mg/dL Borderline high: ??150-199 mg/dL High: ??200-499 mg/dL Very high: ??>kx=287 mg/dL RACHEL 2001; 285(19):9054-8472 HDL Cholesterol 25(L) >=40 mg/dL [facility] Comment: Reference range: ??Low HDL: ?? < 40 mg/dL ??Normal: ?40-60 mg/dL ??Desirable: > 60 mg/dL RACHEL 2001; 285(19):3550-3506 LDL Cholesterol Not Calculated <=99 mg/dL [facility] Comment: Since a calculated LDL value is not valid for triglycerides greater than 400 mg/dl, a direct LDL determination is performed instead. Reference range: ?? Optimal: ?<100 mg/dL ?? Near Optimal/Above Optimal: ?? 100-129 mg/dL ?? Borderline high: ?130-159 mg/dL ?? High: ? 160-189 mg/dL ?? Very high: ?>fy=523 mg/dL RACHEL 2001: 285(19):9940-4522 Cholesterol/HDL Ratio 7.4 ratio [facility] Comment: A Cholesterol to HDL ratio below 4:1 is desirable. ??Studies suggest that increased CAD risk occurs at ratios above 5 for females and above 6 for men. ? [place] Heart Association ??(http://www.americanheart.org) ? Pallavi Int Med, 1994; 121:641 ? AM J Med, 1998; 105(1A):48S Blood specimen (specimen) 06/04/2012 4:45 AM EDT 06/04/2012 4:55 AM EDT Narrative Resulting Agency Comment Spec In Lab Kathie Cotter MD CHEMISTRY ORDERABLES Performing Organization Address [facility] de Phone Number [facility] * (ABNORMAL) Cardiac Enzymes (06/04/2012 4:45 AM EDT) Troponin-T 0.07(H) <=0.03 ng/mL [facility] Comment: 0.03 ng/mL: Represents the 99th percentile upper reference limit for normals. >0.03 ng/mL: Elevated cardiac troponin T level indicative of myocardial damage. Diagnosis of acute, evolving or recent RI requires a typical rise and gradual fall [...] consensus document of the Joint Society of Cardiology/[place] College of Cardiology Committee for the redefinition of myocardial infarction. Journal of the [place] College of Cardiology 2000; 36: 959-969] Creatine Kinase 150 0 - 200 unit/L [employer] [facility] [employer] Comment:result rechecked-[facility] Blood specimen (specimen) 06/04/2012 4:45 AM EDT 06/04/2012 4:55 AM EDT Narrative Resulting Agency Comment Spec In Lab Kathie Cotter MD CHEMISTRY ORDERABLES Performing Organization Address [facility] Co de Phone Number T[facility] * CBC (with Diff) (06/04/2012 4:45 AM EDT) White Blood Cell 6.4 4.0 - 10.0 x10(3)/mcL [facility] Red Blood Cell 4.78 4.63 - 6.08 x10(6)/mcL [facility] MILLENNIUM Hemoglobin 14.6 13.7 - 17.5 gm/dL [facility] MILLENNIUM Hematocrit 42.7 40.0 - 51.0 % [facility] Mean Cell Volume 89.3 79.0 - 92.0 fL [facility]IUM Mean Cell Hemoglobin 30.5 25.6 - 32.2 pg [facility] Mean Cell Hemoglobin Concentration 34.2 32.0 - 36.5 gm/dL [facility] Platelet 154 145 - 370 x10(3)/mcL [facility] RDW Standard Deviation 41.0 35.0 - 46.0 fL [facility] MILLENNIUM RDW coefficient of variation 12.7 10.9 - 14.4 % [facility] Mean Platelet Volume 10.1 9.0 - 12.0 fL [facility] Blood specimen (specimen) 06/04/2012 4:45 AM EDT 06/04/2012 4:55 AM EDT Narrative Resulting Agency Comment Spec In Lab Kathie Cotter MD HEMATOLOGY ORDERABLE S Performing Organization Address [facility]/ZIP Co de Phone Number [facility] * POCT GLUCOSE (06/03/2012 9:31 PM EDT) Glucose, POC 163 60 - 199 mg/dL [facility] Comment: Supplemental ranges: <110 mg/dL before meals <200 mg/dL all other times of the day Blood specimen (specimen) 06/03/2012 9:31 PM EDT 06/03/2012 9:31 PM EDT Kathie Cotter MD POINT OF CARE TEST O RDERABLES Performing Organization Address City/[facility]/ZIP Co de Phone Number [facility] * POCT GLUCOSE (06/03/2012 6:10 PM EDT) Glucose, POC 97 60 - 199 mg/dL [facility] Comment: Supplemental ranges: <110 mg/dL before meals <200 mg/dL all other times of the day Blood specimen (specimen) 06/03/2012 6:10 PM EDT 06/03/2012 6:10 PM EDT Kathie Cotter MD POINT OF CARE TEST O RDERABLES Performing Organization Address [facility] de Phone Number [facility] * EKG 12 Lead (06/03/2012 4:38 PM EDT) Pathologist [facility] Ventricular rate 74 BPM MUSE SYSTEM Atrial Rate 74 BPM MUSE SYSTEM P-R Interval 150 ms MUSE SYSTEM QRS Duration 92 ms MUSE SYSTEM Q-T Interval 372 ms MUSE SYSTEM QTC Calculated (Bezet) 412 ms MUSE SYSTEM Calculated P [place] 46 degrees MUSE SYSTEM Calculated R [place] 25 degrees MUSE SYSTEM Calculated T [place] 29 degrees MUSE SYSTEM INTERPRETATION Normal sinus rhythm Normal ECG When compared with ECG of 18-JAN-2010 07:42, No significant change was found Confirmed by MD Mirtha, Cali ([id number]) on 06/04/2012 7:52:23 AM MUSE SYSTEM 06/03/2012 4:38 PM EDT 06/04/2012 7:52 AM EDT Kathie Cotter MD ECG ORDERABLES Performing Organization Address [facility] de Phone Number MUSE SYSTEM * Cardiac Enzymes (06/03/2012 4:00 PM EDT) [facility] Troponin-T <0.03 <=0.03 ng/mL [facility] Comment: 0.03 ng/mL: Represents the 99th percentile upper reference limit for normals. >0.03 ng/mL: Elevated cardiac troponin T level indicative of myocardial damage. Diagnosis of acute, evolving or recent RI requires a typical rise and gradual fall [...] consensus document of the Joint Society of Cardiology/[place] College of Cardiology Committee for the redefinition of myocardial infarction. Journal of the [place] College of Cardiology 2000; 36: 959-969] Creatine Kinase 41 0 - 200 unit/L [facility]KEY[facility]ANEL Blood specimen (specimen) 06/03/2012 4:00 PM EDT 06/03/2012 4:12 PM EDT Narrative Resulting Agency Comment Spec In Lab Kathie Cotter MD CHEMISTRY ORDERABLES Performing Organization Address City/[facility]/ZIP Co de Phone Number [facility] * POCT GLUCOSE (06/03/2012 11:11 AM EDT) [facility] Glucose, POC 147 60 - 199 mg/dL [facility] Comment: Supplemental ranges: <110 mg/dL before meals <200 mg/dL all other times of the day Blood specimen (specimen) 06/03/2012 11:11 AM EDT 06/03/2012 11:11 AM EDT Kathie Cotter MD POINT OF CARE TEST O RDERABLES Performing Organization Address [facility] Co de Phone Number TANG NORTON documented in this encounter Visit Diagnoses Not on filedocumented in this encounter Administered Medications Inactive Administered Medications - up to 3 most recent administrations Medication Order MAR Action Action Date Dose Rate Site adenosine 90 mg in sodium chloride 0.9% 90 mL infusion (RASPBERRY CHECKER) Intravenous, CONTINUOUS PRN, Starting on Martha 06/03/12 at 1511, Until Martha 06/03/12 at 1734, Cath (Intra-Procedure), Routine New Bag 06/03/2012 3:11 PM EDT 140 mcg/kg/min 933.2 mL/hr aspirin EC tablet 81 mg 81 mg, Oral, DAILY, First dose on Thu06/04/12 at 0900, Until Discontinued, Routine Given 06/04/2012 8:38 AM EDT 81 mg bivalirudin (ANGIOMAX) 250 mg in sodium chloride 0.9% 50 mL infusion (RASPBERRY CHECKER) Intravenous, CONTINUOUS PRN, Starting on Martha 06/03/12 [...] in sodium chloride 0.9% 90 mL infusion (RASPBERRY CHECKER) (CANCELED) Intravenous, CONTINUOUS PRN, Starting on Martha 06/03/12 at 1511, Until Martha 06/03/12 at 1734, Cath (Intra-Procedure), Routine 1511 (New Bag - Provider: Dustin Carlton Jr.)1521 (Stopped - Provider: Tawanda Agarwal, VERO) bivalirudin (ANGIOMAX) 250 mg in sodium chloride 0.9% 50 mL infusion (RASPBERRY CHECKER) (CANCELED) Intravenous, CONTINUOUS PRN, Starting on Martha [...] MD) documented in this encounter Care Teams Distance Education Faculty Liaison Relationship Specialty Start Date End Date Sarita Lim MD [address] [place] [address] PCP - General 07/16/10 documented as of this encounter
--- OUTSIDE RECORDS SUMMARY | 2024-05-17 16:11 | XMS_ITS | Encounter Summary ---
Author Organization [facility] Address [address] [place] [address] Care Team Providers Care Trucker Name Role Phone Coni Lim MD Primary Care Provider [phone] Reason for Visit * (Routine/Next Available) - Receiving Office to Obtain Authorization Specialty Diagnoses / Procedures Referred By Contac t Referred To Contact Procedures CT OUTSIDE IMAGES CERVICAL SPINE Unknown, Provider, Referral ID Status Reason Start Date Expiration Date Visits Requested Visits Authorized [id number] Receiving Office to Obtain Authorization 04/07/2023 1 1 Encounter Details Date Type Department Care Team (Latest Contact Info) Description 04/07/2023 20:11 EDT - 04/07/2023 20:13 EDT Hospital Encounter [facility] Secondary Reads [place] Discharge Disposition: Home or [...] on filedocumented in this encounter Care Teams Trucker Relationship Specialty Start Date End Date Coni Lim MD [address] [place] [id number] PCP - General 12/17/11 documented as of this encounter
--- OUTSIDE RECORDS SUMMARY | 2024-05-17 16:11 | XMS_ITS | Encounter Summary ---
Author Organization [facility] Address [address] [place] [address] Care Team Providers Care Metalizer Name Role Phone Coni Lim MD Primary Care Provider [phone] Encounter Details Date Type Department Care Team (Late st Contact Info) Description 01/14/2022 Lab Requisition [facility] Pathology & Laboratory Medicine - [facility] [address] [place] [address] Kevin Landaverde MD [address] [place] [address] [id number] Encounter for other general examination Social History [...] Name Priority Date/Time Associated Diagnosis Comments NON SPECIAL TRACKWORK BLACKSMITH/FNA CYTOLOGY Today 01/13/2022 8:35 EDT Encounter for other general examination documented in this encounter Results * NON SPECIAL TRACKWORK BLACKSMITH/FNA CYTOLOGY (01/13/2022 8:35 EDT) Note to Patient The following pathology results have been interpreted by your pathologist and may be available to you before your health provider has had the opportunity to review them. Please allow time for your provider to receive these results and explore management options, if applicable. 01/15/2022 12:10 [facility] Final Diagnosis THYROID, RIGHT LOBE, NODULE, ULTRASOUND-GUIDE D FINE NEEDLE ASPIRATION: - Non-diagnostic aspirate. See comment. 01/15/2022 12:10 [facility] Diagnosis Comment Smears are [...] molecular testing as clinically indicated. 01/15/2022 12:10 [facility] Attestation There was significant resident/fellow involvement in the diagnostic evaluation of this case. By the signature below, the attending physician certifies that they have personally conducted a gross and/or microscopic examination of the described specimens and rendered or confirmed the above diagnosis. 01/15/2022 12:10 [facility] at 1210 Rapid Diagnosis [...] by Dr. Melgar assisting Dr. Landaverde at [facility] on 01/13/22. 01/15/2022 12:10 EDT [facility] Clinical History Right thyroid nodule 01/15/2022 12:10 EDT [facility] Gross Description A. 8 fixed prepared slides, 1 air dried prepared slide, and 1 tube of CytoLyt were received and processed by selective cellular enhancement technique. 01/15/2022 12:10 EDT [facility] Resident/Brent w: Daniel Christensen DO 01/15/2022 12:10 EDT [facility] Performing Lab [facility] 01/15/2022 12:10 EDT [facility] Scanned Images 01/15/2022 12:10 EDT [facility] Fine Needle Aspirate ENTIRE RIGHT LOBE OF THYROID GLAND / Unknown 01/13/2022 8:35 EDT 01/14/2022 6:34 EDT Kevin Landaverde MD PATHOLOGY ORDERABLES [facility] [address] [place] [address] documented in this encounter Visit Diagnoses Diagnosis Encounter for other general examination documented in this encounter Care Teams Metalizer Relationship Specialty Start Date End Date Coni Lim MD [address] [place] [address] PCP - General 12/17/11 documented as of this encounter
--- OUTSIDE RECORDS SUMMARY | 2024-05-17 16:12 | XMS_ITS | Encounter Summary ---
Author Organization [facility] Address [address] [place] [address] Care Team Providers Care Bench Scientist Name Role Phone Sarita Lim MD Primary Care Provider [phone] Encounter Details Date Type Department Care Team (Latest Contact Info) Description 03/15/2015 1:06 EDT - 03/16/2015 12:40 EDT Hospital Encounter [facility] Medical Intensive Care Unit [address], [place] [id number] Landon Dumont MD [address] [place] [phone] Venu Veliz MD [address] [place] [address] CVA (cerebral vascular accident) ([facility]) ([facility]) (Primary Dx); tPA/rtPA given at another facility [...] Diagnosis: Ischemic stroke Admitted from: Transfer from [facility] Principal/Final Diagnosis: Transient ischemic attack Additional Diagnoses: Hypertension Type 2 diabetes mellitus Hyperlipidemia Coronary artery disease Current tobacco smoking Suspected obstructive sleep apnea Hospital Course: Mr. Coelho is a 49-year-old right-handed male with a history of hypertension, hyperlipidemia, type 2 diabetes mellitus, coronary artery disease, and current tobacco smoking who presented to [facility] with acute onset right face arm and leg weakness after a transesophageal echocardiogram. Given the clinical diagnosis of ischemic stroke with (with a CT head that did notshow any evidence of hemorrhage), he was treated acutely with IV tPA within the time window and transferred to the [facility] for post-IV TPA ICU monitoring and care, [...] he previously had cardiac monitoring with his health center assistant, and has not had atrial fibrillation, so no cardiac monitoring was ordered after discharge. He has a neurologist (Dr. Negron) in [facility], and will be following up there [...] stroke related stenoses or occlusions: microvascular Modified Jones Scale: 0: No symptoms Evidence of A-fib [...] at Discharge: MS: AAOx3, no language impairments shrimp packer: PERRL, EOMI, sensation intact to light touch [...] at Discharge: Romeo Coelho Home Medication Instructions ANGELA:[id number] Printed on:03/16/15 0844 Medication Information aspirin 325 [...] as important follow-ups were discussed by this science writer with the patient on 03/16/2015. Patient [...] with your neurologist (03/21/15), Dr. Negron in [place] - Transient ischemic attack, neuro anatomically localizes [...] Mayorga MD Neurology Resident, PGY-3 Pager # [phone] (Pager [phone] after hours or on weekends) Attestation statement: I saw and examined the patient with the resident/fellow on 03/16/15. I agreewith the findings and plan of care documented in the resident's/fellow's note. The note has been edited prior to signing. Venu Veliz MD MSc Hospital Secretary [facility] Board certified Adult Neurology Adult Neurology, Neuro-Oncology and Neurophysiology [address] [facility] [id number] documented in this encounter Discharge Instructions * Appointments* Antonio Andersen - 03/16/2015 8:56 EDT Please follow-up with Dr. Edel Negron [facility]. [address], [address] [place] [address] Appointment is scheduled for February at 3:00pm Please bring the CD containing imaging studies done while at [facility] documented in this encounter Medications at Time [...] 1238 EDT Discharge Note: arranged transportation with [facility] transportation. They will picker box operator Pt outside [facility] at 12:45. Medicare IM has been signed. Nery Townsend DIAMOND CLEAVER #[id number] * Nery Townsend - 03/16/2015 1058 EDT Initial Case Management/Social Work Assessment and Discharge Plan /Readmission Risk Assessment Physician working diagnosis: Mr. Romeo Coelho is a right handed 49 y.o.-plpr-ztu-zacc has a pastmedical history of HTN (hypertension); HLD (hyperlipidemia); DMII (diabetes mellitus, type 2); CAD (coronary artery disease); Smoking; Depression; Fibromyalgia; and Gout. Patient (or designee) understanding of admission: Pt understands his admission Patient Contact Information: Pt's contact is his Dasia Coelho (Spouse) [phone] (H) [phone] (W) MEDICAL AND COMMUNITY SERVICES: Primary Care Provider: SARITA LIM MD (General) Specialists seen on a consistent basis: N/A Skilled home care services: N/A DME Provider: N/A Pharmacy: Alejandra Hawk in [facility] LIVING ARRANGEMENTS AND ACCESSIBILITY ISSUES: Apartment Are there any home access issues? No What in home social supports are available to the patient? Pt has support from his who is homewith Pt as she is also receiving disability. ADVANCED DIRECTIVES, POA &/or COLST IN PLACE: No CULTURAL, HINDUISM and/or LANGUAGE factors affecting health care/discharge planning:: [...] Yes,PAL working on arranging transportation for Pt [facility] community transportation out of [facility]. Pt is now ready for DC. [...] collins full, visual acuity grossly normal, DERICK shrimp packer III, IV, : EOMI with smooth pursuit [...] Radiology Imaging: CT head without contrast from [facility] was negative for intracranial hemorrhage MRI head [...] right-sided weakness s/p GLENNA procedure at an [facility]. CT from [facility] didn't demonstrate intracranial hemorrhage. Predominant right-sided motor [...] given disc with imaging done here at [facility] to bring to appointment F/u with primary care provider (Sarita Lim) with particular emphasis on smoking cessation Antonio Andersen, MS III [phone] * Gertrude Linda - 03/16/2015 0901 EDT [facility] Rehabilitation Therapy Acute Therapies [facility] Occupational Therapy Initial Evaluation/Discontinue Note Date of Service: 03/16/2015 Reason for Referral: Evaluate and treat Precautions: Activity as tolerated, Ambulate and Fall precautions SUBJECTIVE: It feels back to normal-in reference to strength in R-UE. Pain: No pain reported during the interview. OBJECTIVE: Patient Profile: Romeo Coelho is a right hand dominant 49 y.o. male admitted on 03/15/2015 secondary to [facility] ED- STROKE W/LYTICS- TO M4 434.91 CEREBR ART OCCL UNSPEC W INFARCT[ICD-9-CM] The patient lives at [address] [place] [address] History of Present Illness/Injury: Per neuro H&P by Dr. Veliz on 03/15/15: Chief Complaint: Right-sided weakness HPI: Mr. Romeo Coelho is a right handed 49 y.o.-ekmv-xhi-fnsb has a past medical history of HTN (hypertension); HLD (hyperlipidemia); DMII (diabetes mellitus, type 2); CAD (coronary artery disease); Smoking; Depression; Fibromyalgia; and Gout. Patient was transferred to from [facility] after administration of TPAfollowing sudden onset of [...] normal tensive, patient was subsequently transferred to [facility] for higher level of care [...] GOALS: Short Term Goals: - ?? - Custodial Goals: - ?? - PLAN: Intervention: Discontinue occupational therapy at [facility] acute care. Further Data: N/a Patient/Family Education: Discharge Planning Role of OT Safety Recommended Discharge Destination: Home with family Recommended Discharge Services: No occupational therapy follow-up services at this time Recommended Discharge Equipment: Patient has all equipment necessary Gertrude Linda OT Student, 03/16/2015, 9:01 COOKIE DAMON OT03/16/201512:46 Pager: [phone] * Veun Veliz MD - 03/15/2015 5421 EDT Neurology Daily Progress Note Admit Date: [...] assessed CN II: visual collins full, PERRL shrimp packer III, IV, : EOMI with smooth pursuit [...] (will not provide if there is a IMPREGNATION OPERATOR hemorrhage). Code Status: Full Dispo: Likely home tomorrow Consults: None Rob Mayorga MD Neurology Resident, PGY-3 Pager # [phone] (Pager [phone] after hours or on weekends) Attestation statement: [...] his MRI today. Venu Veliz MD MSc Hospital Secretary [facility] Board certified Adult Neurology Adult Neurology, Neuro-Oncology and Neurophysiology [address] [facility] [id number] * NicoleduAntonio - 03/15/2015 8828 EDT Neurology Daily Progress Note Admit Date: [...] was immediately brought to the ED at [facility] where a stat CT head was performed and did not demonstrate intracranial hemorrhage. He didn't have any contraindications and thus was given tPA and was subsequently transported here to [facility]. He says that he remembers his right [...] He was brought to the ED at [facility] and it was presumed that he [...] collins full, visual acuity grossly normal, DERICK shrimp packer III, IV, : EOMI with smooth pursuit [...] Radiology Imaging: CT head without contrast from [facility] was negative for intracranial hemorrhage Assessment: Mr. Coelho is a 49yo male with a PMH significant for HTN, HLD, T2DM, CAD, current smoker, and past history of a CVA (2004) and recent TIA who presented with right-sided weakness s/p GLENNA procedure at an [facility]. CT from [facility] didn't demonstrate intracranial hemorrhage. Predominant right-sided motor symptoms suggest lesion in the left posterior limb of internal capsule, likely etiology being microvascular disease due to underlying co-morbidities. Recommendations: CVA (cerebral vascular accident) - presumed microvascular etiology - f/u MRI head this evening around 8pm - continue telemetry monitoring - Q4 stroke neuro vital signs - GLENNA results pending from [facility] - PT/OT to assist with getting patient [...] Romeo Coelho is a right handed 49 y.o.-gqzv-mdm-hrhc has a past medical history of HTN (hypertension); HLD (hyperlipidemia); DMII (diabetes mellitus, type 2); CAD (coronary artery disease); Smoking; Depression; Fibromyalgia; and Gout. Patient was transferred to from [facility] after administration of TPAfollowing sudden onset of [...] normal tensive, patient was subsequently transferred to [facility] for higher level of care [...] collins full, visual acuity grossly normal, PERRLA shrimp packer III, IV, : EOMI with smooth pursuit [...] Rehab Code Status: full Elvira Gray MD [facility] Neurology Resident PGY-3 Pager # [phone] (# [phone] nights/weekends) 03/15/2015 3:35 Did patient have a stroke or TIA? Yes Type of Stroke Cerebral Infarction Stroke code: No Transfer from outside hospital: Yes Hospital Name: [facility] Initial Contact Time: patient received TPA at 2020 on March 14 On admission to [facility], NIHSS: NIHSS Testing Interval: 2 hr post [...] during this hospitalization? PT: Yes OT: Yes SENIOR DATA QUALITY ANALYST: No; patient returned to prior level of [...] his MRI today. Venu Veliz MD MSc Hospital Secretary [facility] Board certified Adult Neurology Adult Neurology, Neuro-Oncology and Neurophysiology [address] [facility] [id number] documented in this encounter Miscellaneous Notes * [...] stroke. Received TPA prior to transfer to [facility]. A: neuro checks per TPA protocol. R: [...] 8:17 EDT) 03/21/2015 8:17 EDT Scan 2 Gem Expert PROCEDURE/MINOR GUSTAVO GICAL ORDERABLES * ECG REPORT - SCANNED (03/20/2015 22:44 EDT) 03/20/2015 22:4 4 EDT Scan 2 Gem Expert PROCEDURE/MINOR GUSTAVO GICAL ORDERABLES * CREATININE (03/16/2015 4:06 EDT) Creatinine 0.77 0.66 - 1.25 mg/dl 03/16/2015 4:50 EDT [facility] GFR, Calculated 108 >60 ml/min/1.7 3m2 03/16/2015 4:50 EDT [facility] Comment: eGFR calculated using CKD-EPI equation for non Americans. Multiply eGFR by 1.16 for Americans. Blood specimen (specimen) BLOOD SPECIMEN / Unknown 03/16/2015 4:06 EDT 03/16/2015 4:18 EDT Rob Mayorga MD CHEMISTRY & BLO OD GAS ORDERABLES [facility] [address] [place] [address] * (ABNORMAL) BUN (03/16/2015 4:06 EDT) BUN 9(L) 10 - 26 mg/dl 03/16/2015 4:50 EDT [facility] Blood specimen (specimen) BLOOD SPECIMEN / Unknown 03/16/2015 4:06 EDT 03/16/2015 4:18 EDT Rob Mayorga MD CHEMISTRY & BLO OD GAS ORDERABLES [facility] [address] [place] [address] * (ABNORMAL) HEMAGRAM AND DIFFERENTIAL (03/16/2015 4:06 EDT) WBC 7.36 4.0 - 10.4 K/cmm 03/16/2015 4:45 [facility] RBC 4.80 4.36 - 5.78 M/cmm 03/16/2015 4:45 [facility] Hemoglobin 14.4 13.8 - 17.3 gm/dl 03/16/2015 4:45 [facility] HCT 42.4 39.5 - 50.2 % 03/16/2015 4:45 [facility] MCV 88 81 - 95 fl 03/16/2015 4:45 [facility] MCH 30.0 27.6 - 33.0 pg 03/16/2015 4:45 [facility] MCHC 34.0 32.8 - 36.4 gm/dl 03/16/2015 4:45 [facility] RDW-CV 13.6 11.8 - 14.1 % 03/16/2015 4:45 [facility] RDW-SD 41.6 36.5 - 45.9 fl 03/16/2015 4:45 [facility] PLT 163 141 - 320 K/cmm 03/16/2015 4:45 [facility] MPV 9.0 7.5 - 11.2 fl 03/16/2015 4:45 [facility] % Neutrophils 43.3(L) 45.5 - 79.7 % 03/16/2015 4:45 [facility] % Lymphocytes 42.5 15.0 - 46.8 % 03/16/2015 4:45 [facility] % Monocytes 7.7 1.8 - 12.0 % 03/16/2015 4:45 [facility] % Eosinophils 5.3 0.6 - 6.9 % 03/16/2015 4:45 [facility] % Basophils 1.2 0.2 - 1.4 % 03/16/2015 4:45 [facility] ABS Neutrophils 3.19 2.20 - 8.85 K/cmm 03/16/2015 4:45 [facility] ABS Lymphs 3.13 1.09 - 3.30 K/cmm 03/16/2015 4:45 [facility] ABS Monocytes 0.57 0.1 - 0.8 K/cmm 03/16/2015 4:45 [facility] ABS Eosinophils 0.39 0.03 - 0.61 K/cmm 03/16/2015 4:45 [facility] ABS Basophils 0.09 0.01 - 0.11 K/cmm 03/16/2015 4:45 [facility] Type of Diff: Automated 03/16/2015 4:45 [facility] Blood specimen (specimen) BLOOD SPECIMEN / Unknown 03/16/2015 4:06 EDT 03/16/2015 4:18 EDT Elvira Gray MD PACKAGES & DNA PROBE ORDERABLES [facility] [address] [place] [address] * ELECTROLYTES (03/16/2015 4:06 EDT) Sodium 145 136 - 145 mEq/L 03/16/2015 4:50 [facility] Potassium 3.9 3.5 - 5.0 mEq/L 03/16/2015 4:50 EDT [facility] Chloride 108 96 - 110 mEq/L 03/16/2015 4:50 EDT [facility] CO2 25 24 - 32 mEq/L 03/16/2015 4:50 EDT [facility] Blood specimen (specimen) BLOOD SPECIMEN / Unknown 03/16/2015 4:06 EDT 03/16/2015 4:18 EDT Elvira Gray MD CHEMISTRY & BLOOD GA S ORDERABLES Performing Organization Address City/[facility]/ZIP Co de Phone Number [facility] [address] [place] [address] * GLUCOSE, GLUCOMETER (03/15/2015 22:45 EDT) Glucose, Fingerstick 91 70 - 100 mg/dl 03/15/2015 22:57 EDT [facility] Superintendent Generating Plant ID [id number] 03/15/2015 22:57 EDT [facility] Comment:Test Performed by Nu ing Services BLOOD SPECIMEN / Unknown 03/15/2015 22:45 EDT 03/15/2015 22:57 EDT Landon Dumont MD CHEMISTRY & BLOOD GA S ORDERABLES Performing Organization Address City/[facility] Co de Phone Number [facility] [address] [place] [address] * MR HEAD WO CONTRAST (03/15/2015 21:07 [...] (ng/mL) <0.034 <0.034 ng/ml 03/15/2015 19:54 EDT [facility] Blood specimen (specimen) BLOOD SPECIMEN / Unknown 03/15/2015 18:17 EDT 03/15/2015 19:09 EDT Rob Mayorga MD CHEMISTRY & BLO OD GAS ORDERABLES [facility] [address] [place] [address] * GLUCOSE, GLUCOMETER (03/15/2015 17:19 EDT) Glucose, Fingerstick 100 70 - 100 mg/dl 03/15/2015 17:23 EDT [facility] Superintendent Generating Plant ID [id number] 03/15/2015 17:23 EDT [facility] Comment:[facility] BLOOD SPECIMEN / Unknown 03/15/2015 17:19 EDT 03/15/2015 17:23 EDT Landon Dumont MD CHEMISTRY & BLOOD GA S ORDERABLES Performing Organization Address City/[facility]/ZIP Co de Phone Number [facility] [address] [place] [address] * UA REFLEX (03/15/2015 16:16 EDT) UA Billing Microscopic not indicated. 03/15/2015 22:40 EDT [facility] URINE / Unknown 03/15/2015 1 6:16 EDT 03/15/2015 22:24 EDT Landon Dumont MD URINALYSIS ORDERABLE S Performing Organization Address [facility] de Phone Number [facility] [address] [place] [address] * URINALYSIS WITH REFLEX MICROSCOPIC (03/15/2015 16:16 EDT) Color, UA Yellow 03/15/2015 22:40 EDT [facility] Clarity, UA Clear 03/15/2015 22:40 EDT [facility] Glucose, UA Neg Neg 03/15/2015 22:40 EDT [facility] Bilirubin, UA Neg Neg 03/15/2015 22:40 EDT [facility] Ketones, UA Neg Neg 03/15/2015 22:40 EDT [facility] Specific Manly, Urine 1.010 1.001 - 1.035 03/15/2015 22:40 T [facility] Blood, UA Neg Neg 03/15/2015 22:40 EDT [facility] pH, UA 6.5 4.6 - 8.0 03/15/2015 22:40 EDT [facility] Protein, UA Neg Neg 03/15/2015 22:40 T [facility] Urobilinogen, UA 0.2 0.2 - 1.0 E.U./dl 03/15/2015 22:40 EDT [facility] Nitrite, UA Neg Neg 03/15/2015 22:40 EDT [facility] Leuk Esterase Neg Neg 03/15/2015 22:40 EDT [facility] URINE / Unknown 03/15/2015 1 6:16 EDT 03/15/2015 22:24 EDT Landon Dumont MD URINALYSIS ORDERABLE S Performing Organization Address [facility] de Phone Number [facility] [address] [place] [address] * URINE CULTURE IF UA POSITIVE - NON POCT URINALYSIS ONLY (03/15/2015 16:16 EDT) Culture if Indicated Culture not indicated by urinalysis results. 03/15/2015 22:49 EDT [facility] TOPOGRAPHY UNKNOWN / Unknown 03/15/2015 16:16 EDT 03/15/2015 22:24 EDT Landon Dumont MD MICROBIOLOGY - GENER AL ORDERABLES Performing Organization Address [facility] de Phone Number [facility] [address] [place] [address] * VL CAROTID/VERTEBRAL DUPLEX BILATERAL (03/15/2015 16:06 EDT) Anatomical Region Laterality Modality Other 03/15/2015 16:0 6 EDT Narrative 03/16/2015 9:40 EDT Vascular Diagnostic Laboratory [facility] [place] [address] [place] [address] Technologist: Mono Hernandez IMPRESSIONS 1. 16-49% stenosis [...] homogeneous plaque. Electronically signed by: Satnam Lee [id number] Procedure Note Satnam Lee MD - 03/16/2015 Vascular Diagnostic Laboratory [facility] [address] [place] [address] Technologist: Mono Hernandez IMPRESSIONS 1. 16-49% stenosis [...] homogeneous plaque. Electronically signed by: Satnam Lee [id number] Rob Mayorga MD [facility] US VASCULAR ORDERABLES * CHEST PA AND [...] IMPRESSION: No acute disease. Rob Mayorga MD [facility] DIAGNOSTIC IMAGING ORDERABLES * (ABNORMAL) GLUCOSE, GLUCOMETER (03/15/2015 11:38 EDT) Glucose, Fingerstick 137(H) 70 - 100 mg/dl 03/15/2015 11:40 EDT [facility] Superintendent Generating Plant ID [id number] 03/15/2015 11:40 EDT [facility] Comment:Test Performed by Nu ing Services BLOOD SPECIMEN / Unknown 03/15/2015 11:38 EDT 03/15/2015 11:40 EDT Landon Dumont MD CHEMISTRY & BLOOD GA S ORDERABLES [facility] [address] [place] [address] * EKG 12-LEAD (03/15/2015 10:54 EDT) 03/15/2015 10:5 4 EDT Narrative [facility] - 03/19/2015 10:49 EDT ? [facility] ? Test Date: ?2015-03-15 Pat Name: ? ROMEO COELHO ?Department: ?? Roy 4 ? Room: ? M401 Gender: ? M ?Human Resources Generalist: ?? [id number] : ?1965 ? Requested By: ALYSSIA Basilio Order Number: [id number] ? Reading : ?? VILMA BENSON MD ? Measurements Intervals ?[place] ? Rate: ? 65 ? P: ?-5 MA: ? 145 ?QRS: ?24 QRSD: ? 90 ? T: ?30 QT: ? 385 ? QTc: ?403 ? Interpretive Statements SINUS RHYTHM Compared to ECG 02/21/2014 18:59:09 No significant changes I reviewed the tracing and have either agreed or edited the findings in this report. Electronically Signed On 03-19-15 10:49:51 EDT by VILMA BENSON MD. Procedure Note Vilma Benson Jr., MD - 03/19/2015 [facility] Test Date: 2015-03-15 Pat Name: ROMEO COELHO Department: Kirill Gramajo Room: [facility] Gender: M Human Resources Generalist: [id number] : 1965 Requested By: ALYSSIA WINSTON Order Number: [id number] Reading MD: VILMA BENSON MD Measurements Intervals [place] Rate: 65 P: -5 MA: 145 QRS: 24 QRSD: 90 T: 30 QT: 385 QTc: 403 Interpretive Statements SINUS RHYTHM Compared to ECG 02/21/2014 18:59:09 No significant changes I reviewed the tracing and have either agreed or edited the findings inthis report. Electronically Signed On 03-19-15 10:49:51 EDT by VILMA LIZAMA. Rob Mayorga MD CARDIAC ECG ORD ERABLES Performing Organization Address City/[facility]/ZIP Co de Phone Number [facility] EKG * TROPONIN I (03/15/2015 10:45 EDT) Troponin I (ng/mL) <0.034 <0.034 ng/ml 03/15/2015 11:31 EDT [facility] Blood specimen (specimen) BLOOD SPECIMEN / Unknown 03/15/2015 10:45 EDT 03/15/2015 11:07 EDT Rob Mayorga MD CHEMISTRY & BLO OD GAS ORDERABLES Performing Organization Address [facility] Co de Phone Number [facility] [address] [place] [address] * (ABNORMAL) GLUCOSE, GLUCOMETER (03/15/2015 7:42 EDT) Pathologist [facility] Glucose, Fingerstick 108(H) 70 - 100 mg/dl 03/15/2015 7:44 EDT [facility] Superintendent Generating Plant ID [id number] 03/15/2015 7:44 EDT [facility] Comment:[facility] BLOOD SPECIMEN / Unknown 03/15/2015 7:42 EDT 03/15/2015 7:44 EDT Landon Dumont MD CHEMISTRY & BLOOD GA S ORDERABLES Performing Organization Address [facility] Co de Phone Number [facility] [address] [place] [address] * MRSA MOLECULAR DETECTION (03/15/2015 6:00 EDT) Result No Staphylococcus aureus detected by PCR. 03/15/2015 9:35 [facility] Specimen of unknown material (specimen) NASAL ROUTE / Unknown 03/15/2015 6:00 EDT 03/15/2015 7:31 EDT Landon Dumont MD MICROBIOLOGY - GENER AL ORDERABLES [facility] [address] [place] [address] * (ABNORMAL) HEMAGRAM AND DIFFERENTIAL (03/15/2015 1:52 EDT) WBC 8.42 4.0 - 10.4 K/cmm 03/15/2015 3:40 [facility] RBC 4.87 4.36 - 5.78 M/cmm 03/15/2015 3:40 [facility] Hemoglobin 14.5 13.8 - 17.3 gm/dl 03/15/2015 3:40 [facility] HCT 43.2 39.5 - 50.2 % 03/15/2015 3:40 [facility] MCV 89 81 - 95 fl 03/15/2015 3:40 [facility] MCH 29.8 27.6 - 33.0 pg 03/15/2015 3:40 [facility] MCHC 33.6 32.8 - 36.4 gm/dl 03/15/2015 3:40 [facility] RDW-CV 13.7 11.8 - 14.1 % 03/15/2015 3:40 [facility] RDW-SD 42.0 36.5 - 45.9 fl 03/15/2015 3:40 [facility] PLT 151 141 - 320 K/cmm 03/15/2015 3:40 [facility] MPV 8.7 7.5 - 11.2 fl 03/15/2015 3:40 [facility] % Neutrophils 51.2 45.5 - 79.7 % 03/15/2015 3:40 [facility] % Lymphocytes 35.1 15.0 - 46.8 % 03/15/2015 3:40 EDT [facility] % Monocytes 7.4 1.8 - 12.0 % 03/15/2015 3:40 [facility] % Eosinophils 4.4 0.6 - 6.9 % 03/15/2015 3:40 [facility] % Basophils 1.9(H) 0.2 - 1.4 % 03/15/2015 3:40 [facility] ABS Neutrophils 4.31 2.20 - 8.85 K/cmm 03/15/2015 3:40 [facility] ABS Lymphs 2.95 1.09 - 3.30 K/cm 03/15/2015 3:40 [facility] ABS Monocytes 0.63 0.1 - 0.8 K/cm 03/15/2015 3:40 [facility] ABS Eosinophils 0.37 0.03 - 0.61 K/cmm 03/15/2015 3:40 [facility] ABS Basophils 0.16(H) 0.01 - 0.11 K/cmm 03/15/2015 3:40 [facility] Type of Diff: Automated 03/15/2015 3:40 [facility] Blood specimen (specimen) BLOOD SPECIMEN / Unknown 03/15/2015 1:52 EDT 03/15/2015 3:30 EDT Elvira Gray MD PACKAGES & DNA PROBE ORDERABLES Performing Organization Address City/State/[facility] Co de Phone Number [facility] [address] [place] [address] * ELECTROLYTES (03/15/2015 1:52 EDT) Sodium 143 136 - 145 mEq/L 03/15/2015 4:10 [facility] Potassium 3.8 3.5 - 5.0 mEq/L 03/15/2015 4:10 [facility] Chloride 109 96 - 110 mEq/L 03/15/2015 4:10 [facility] CO2 24 24 - 32 mEq/L 03/15/2015 4:10 [facility] Blood specimen (specimen) BLOOD SPECIMEN / Unknown 03/15/2015 1:52 EDT 03/15/2015 3:30 EDT Elvira Gray MD CHEMISTRY & BLOOD GA S ORDERABLES Performing Organization Address [facility] Co de Phone Number [facility] [address] [place] [address] * TSH (03/15/2015 1:52 EDT) TSH 1.97 0.35 - 5.00 uIU/ml 03/15/2015 10:51 EDT [facility] Blood specimen (specimen) BLOOD SPECIMEN / Unknown 03/15/2015 1:52 EDT 03/15/2015 3:30 EDT Elvira Gray MD CHEMISTRY & BLOOD GA S ORDERABLES Performing Organization Address [facility] de Phone Number [facility] [address] [place] [address] * LIPID PROFILE (INCLUDES CHOLESTEROL, TRIGLYCERIDES, HDL, LDL) (03/15/2015 1:52 EDT) Cholesterol 118 mg/dl 03/15/2015 4:10 [facility] Comment: Desirable:<200 Borderline High:200-239 High:>gn=765 Triglycerides 274 mg/dl 03/15/2015 4:10 [facility] Comment: Normal:<150 Borderline High:150-199 High:200-499 Very High:>dr=288 HDL 30 mg/dl 03/15/2015 4:10 [facility] Comment: Low:<40 Normal:40-60 Desirable: >60 LDL, Calculated 33 mg/dl 5 4:10 [facility] Comment: Optimal:<100 Near Optimal:100-129 Borderline High:130-159 High:160-189 Very High:>if=067 Chol/HDL Ratio 3.9 03/15/2015 4:10 [facility] Fasting? Unknown 03/15/2015 3:30 [facility] Non HDL Cholesterol 88 mg/dl 03/15/2015 4:10 EDT [facility] Comment: Desirable:<130 Borderline:130-159 High: 160-189 Very High: >ze=949 Blood specimen (specimen) BLOOD SPECIMEN / Unknown 03/15/2015 1:52 EDT 03/15/2015 3:30 EDT Elvira Gray MD CHEMISTRY & BLOOD GA S ORDERABLES Performing Organization Address [facility] de Phone Number [facility] [address] [place] [address] * HEMOGLOBIN A1C (03/15/2015 1:52 EDT) Hemoglobin A1C 6.4 % 03/15/2015 9:40 EDT [facility] Comment: Reference Range: <5.7% Normal 5.7-6.4% Increased risk for diabetes =>6.5% Diagnostic for diabetes (if confirmed) The A1c goal for non adults in general is <7%. The A1c goal for selected patients may be significantly lower than 7% if this can be achieved without significant hypoglycemia or other adverse effects of treatment. Est Avg Glucose 137 mg/dl 5 9:40 EDT [facility] Comment: eAG represents the A1c result expressed as average glucose in mg/dl. Blood specimen (specimen) BLOOD SPECIMEN / Unknown 03/15/2015 1:52 EDT 03/15/2015 3:30 EDT Elvira Gray MD CHEMISTRY & BLOOD GA S ORDERABLES Performing Organization Address [facility] de Phone Number [facility] [address] [place] [address] * (ABNORMAL) BUN (03/15/2015 1:52 EDT) BUN 9(L) 10 - 26 mg/dl 03/15/2015 4:10 EDT [facility] Blood specimen (specimen) BLOOD SPECIMEN / Unknown 03/15/2015 1:52 EDT 03/15/2015 3:30 EDT Elvira Gray MD CHEMISTRY & BLOOD GA S ORDERABLES Performing Organization Address [facility] Co de Phone Number [facility] [address] [place] [address] * CREATININE (03/15/2015 1:52 EDT) Creatinine 0.81 0.66 - 1.25 mg/dl 03/15/2015 4:10 EDT [facility] GFR, Calculated 106 >60 ml/min/1.7 3m2 03/15/2015 4:10 EDT [facility] Comment: eGFR calculated using CKD-EPI equation for non Americans. Multiply eGFR by 1.16 for Americans. Blood specimen (specimen) BLOOD SPECIMEN / Unknown 03/15/2015 1:52 EDT 03/15/2015 3:30 EDT Elvira Gray MD CHEMISTRY & BLOOD GA S ORDERABLES Performing Organization Address [facility] Co de Phone Number [facility] [address] [place] [address] * SCREENING GLUCOSE (03/15/2015 1:52 EDT) Glucose, Screening 98 70 - 100 mg/dl 03/15/2015 4:10 EDT [facility] Blood specimen (specimen) BLOOD SPECIMEN / Unknown 03/15/2015 1:52 EDT 03/15/2015 3:30 EDT Elvira Gray MD CHEMISTRY & BLOOD GA S ORDERABLES Performing Organization Address City/[facility] Co de Phone Number [facility] [address] [place] [address] documented in this encounter Visit Diagnoses Diagnosis [...] 02/22 documented in this encounter Care Teams Bench Scientist Relationship Specialty Start Date End Date Sarita Lim MD [address] [place] [address] PCP - General 12/17/11 documented as of this encounter
--- OUTSIDE RECORDS SUMMARY | 2024-05-17 16:12 | XMS_ITS | Encounter Summary ---
Author Organization [facility] Address [address] [place] [address] Care Team Providers Care Fence Builder Name Role Phone Unavailable Primary Care Provider Unavailabl e Encounter Details Date Type Department Care Team (Late st Contact Info) Description 11/13/2008 Before PRISM Converted Visit (Maple) [facility] - Maple conversion [address] [place] [address] Irving Jha MD [address] [place] [id number] Social History Tobacco Use Types Packs/Day Years [...] reading/interpreti ng unformatted reports. ? Name: ? LAQUITA, ROMEO A ? Accession #: ? [id number] ? : ? 1965 (Age: 43) ??M [...] the rectal biopsy (specimen B). ??( ?? [facility] ? Document reviewed and electronically signed by: [...] cancer ? Gross Description: ? Received in [facility]'s fixative labelled Romeo Coe and #1 bx ? terminal ileum are three biopsies which vary in size from 0.3 x 0.2 x 0.1 cm up to 0.4 x 0.3 x 0.2 cm. ??The specimen is submitted intact as (A). ? [facility] and [...] PATHOLOGY ORDERABLE [facility] [address] [place] [address] documented in this encounter Visit Diagnoses Not on filedocumented in this encounter
--- OUTSIDE RECORDS SUMMARY | 2024-05-17 16:12 | XMS_ITS | Encounter Summary ---
Author Organization [facility] Address [address] [place] [address] Care Team Providers Care Mortgage Operations Manager Name Role Phone Sarita Lim MD Primary Care Provider [phone] Reason for Referral * Consult (Routine) - Closed Specialty Diagnoses / Procedures Referred By Contac t Referred To Contact Diagnoses S/P coronary artery stent placement Chest pain Kemi Pineda NP [address] [place] [id number] Benjie Leyva MD [address] [place] [id number] Referral ID Status Reason Start Date Expiration Date V isits Requested Visits Authorized [id number] Closed Specialty Services Required 02/23/2014 1 1 Question Answer Reason for Request: chest pain Scheduling Comments (optional ? describe specific scheduling needs if applicable): already scheduled Expected Discharge Date (Inpatient Only): 02/23/2014 Comments Already scheduled with Dr Leyva February at [address] Leyva's telephone number is [phone]. * Consult (Routine) - Closed Specialty Diagnoses / Procedures Referred By Contac t Referred To Contact Diagnoses S/P coronary artery stent placement Chest pain Kemi Pineda NP [address] [place] [phone] Referral ID Status Reason Start Date Expiration Date V isits Requested Visits Authorized [id number] Closed Specialty Services Required 02/22/2014 1 1 Question Answer Reason for Request: chest pain Scheduling Comments (optional ? describe specific scheduling needs if applicable): now, previously requested after 02/15/14 [facility] admission Expected Discharge Date (Inpatient Only): 02/23/2014 Comments Previously requested, please refer to cardiac rehab at [facility] Encounter Details Date Type Department Care Team (Late st Contact Info) Description 02/21/2014 18:30 EDT - 02/23/2014 15:44 EDT Hospital Encounter [facility] Cardiac/Telemetry Unit [address] [place] [phone] Rafy Lopez MD [address] [place] [phone] Jez Ortiz MD [address] [place] [phone] Cali Sage MD [address] [place] [phone] Chest pain (Primary Dx); S/P coronary [...] with PMH of CAD s/p PCI at [facility] in May 2012 and Jul 2013 and admitted at [facility] on 02/15 for USAP and received JACINDA [...] heparin and nitro gtt and transferred to [facility] for unstable angina. On arrival his [...] requested, please refer to cardiac rehab at [facility] Reason for Request: chest pain Expected Discharge Date (Inpatient Only): 02/23/2014 Scheduling Time Frame: now, previously requested after 02/15/14 [facility] admission CONSULT: Consulting provider to render an [...] [address] Leyva's telephone number is [phone]. Reason for Request: chest pain Expected Discharge [...] the resident's note. Jez Ortiz Jr., MD supervisor hide house [facility] Pager [phone] documented in this encounter Medications [...] Stress test results reviewed with stress laboratory coordinator. Exercised for almost 7 minutes and patient stoppedhis own test secondary to ANDERSON. Experienced minimal chest tightness, = 1, scale 1-10, which resolvedalmost immediately. Stress EKG negative for ischemia. Reviewed with Dr Arechiga. Plan: discharge home on current dose Ranexa with patient instructions forlow exertional level to allow for full effect of Ranexa at 2 weeks. Follow up as scheduled: Dr Leyva [facility], cardiac rehab [facility], tobacco cessation. Tele: NSR 63, no events Exam: CV: S1 S2 no m/r/g Lungs CTA bilaterally Right radial: 2+ no residual ecchymosis or hematoma from 02/15/14 PCI Voiding without difficulty, no dyspepsia Assess: stable for discharge Plan: home today on Ranexa with limited exercise until fully therapeutic Follow up scheduled with Dr Leyva in [facility] Cardiac rehab [facility] Continue smoking cessation D/w Ludwig Tracy and Moo * Alyssa Phan - 02/23/2014 0901 EDT Spoke with Fany at [facility] transport. They will need a call when patient is ready [phone]. After 4:30pm call [phone]. DC note Patient will be discharged without services Stable per team for d/c Medications should be picked up from [facility] outpatient pharmacy prior to ride at 4:00pm [facility] transport will machine operator hop picker patient at 4:00pm in front of the [facility] Alyssa Phan RN CM #[id number] * Kemi Pineda NP - 02/22/2014 1712 [...] with PMH of CAD s/p PCI at [facility] in May 2012 and Jul 2013, [...] with transportation. Called [facility] to arrange volunteer wedding transportation driver ([phone]). He will have a stress test today. [...] with PMH of CAD s/p PCI at [facility] in May 2012 and Jul 2013, [...] heparin and nitro gtt and transferred to [facility] for observation. 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 Living situation: Lives in [place], [place], with . Family History Problem Relation [...] the resident's note. Jez Ortiz Jr., MD supervisor hide house [facility] Pager [phone] documented in this encounter Procedure Notes * Eagle Fernando RN - 02/23/2014 0885 EDTProcedure(s): EXERCISE TOLERANCE TEST Preliminary Stress Lab [...] Other 03/09/2014 16:1 4 EDT Scan 2 Business Education Teacher IMG OTHER IMAGING O RDERABLES * ECG REPORT - SCANNED (03/01/2014 15:54 EDT) 03/01/2014 15:5 4 EDT Scan 2 Business Education Teacher PROCEDURE/MINOR GUSTAVO GICAL ORDERABLES * ECG REPORT - SCANNED (02/27/2014 12:40 EDT) 02/27/2014 12:4 0 EDT Scan 2 Business Education Teacher PROCEDURE/MINOR GUSTAVO GICAL ORDERABLES * (ABNORMAL) GLUCOSE, GLUCOMETER (02/23/2014 11:41 EDT) Glucose, Fingerstick 185(H) 70 - 100 mg/dl [facility] Collective Bargaining Specialist ID [id number] [facility] Comment:Test Performed by [facility] 02/23/2014 11:4 1 EDT 02/23/2014 11:42 EDT Jez Ortiz MD CHEMISTRY & BLOOD GA S ORDERABLES Performing Organization Address [facility] de Phone Number [facility] [address] [place] [address] * (ABNORMAL) GLUCOSE, GLUCOMETER (02/23/2014 9:28 EDT) Glucose, Fingerstick 153(H) 70 - 100 mg/dl [facility] Collective Bargaining Specialist ID [id number] [facility] Comment:Test Performed by [facility] 02/23/2014 9:28 EDT 02/23/2014 9:29 EDT Rafy Lopez MD CHEMISTRY & BLOOD GAS ORDERABLES Performing Organization Address [facility] de Phone Number [facility] [address] [place] [address] * EXERCISE TOLERANCE TEST WAVEFORM (02/23/2014 8:44 EDT) Anatomical Region Laterality Modality Other 02/23/2014 8:44 EDT Narrative 02/23/2014 8:46 EDT For report of this Waveform, see associated Image Study. ?[facility] ? Test Date: ?2014-02-23 Pat Name: ? ROMEO PATELONEY ?Department: ?? STRESS ? Room: ? Gender: ? M ?Separating Machine Operator: ?[id number] : ?1965 ? Requested By: ROSSANA Tenorio Order Number: [id number] ?Tiarra OG: ? Interpretive Statements Procedure Note 02/23/2014 For report of this Waveform, see associated Image Study. [facility] Test Date: 2014-02-23 Pat Name: ROMEO COELHO Department: STRESS Room: Gender: M Separating Machine Operator: [id number] : 1965 Requested By: ROSSANA Tenorio Order Number: [id number] Tiarra MD: Interpretive Statements Jermaine Tracy MD CARDIAC SERVICES OR DERABLES * EXERCISE TOLERANCE TEST (02/23/2014 7:30 EDT) Anatomical Region Laterality Modality Other 02/23/2014 7:30 EDT Narrative 03/03/2014 13:21 EDT *[facility]* [address] [place] [address] *Interpreting Group:* *[facility]* [address] [place] [address] Stress Electrocardiography Supa protocol *PATIENT PRESENTATION* Height: [...] chest pain became unremitting. Pt went to [facility] where EKG negative and troponin negative and reansferred to [facility]. Troponin negative here. Pt is S/P PCI at [facility] May 2012 and Jul 2013. Pt [...] peak heart rate and blood pressure was 51412xz Hg/min. ??1 out of 10 stress-induced chest [...] Dr. Keo Steele. Electronically signed by Keo cMginnis MD 03/03/2014 13:21 Procedure Note 03/03/2014 *[facility]* [address] [place] [address] *Interpreting Group:* *[facility]* [address] [place] [address] Stress Electrocardiography Supa protocol *PATIENT PRESENTATION* Height: [...] when chest painbecame unremitting. Pt went to [facility] where EKG negative andtroponin negative and reansferred to [facility]. Troponin negative here. Pt is S/P PCI at [facility] May 2012 and Jul 2013. Pt admitted 02/15 for unstable angina and received to [facility] ot LAD X2. No chest pain or [...] the peak heart rate andblood pressure was 79924ul Hg/min. 1 out of 10 stress-induced chest [...] 70 - 100 mg/dl [facility] Collective Bargaining Specialist ID [id number] [facility] Comment:Test Performed by [facility] 02/23/2014 6:40 EDT 02/23/2014 6:44 EDT Rafy Lopez MD CHEMISTRY & BLOOD GAS ORDERABLES [facility] [address] [place] [address] * HEMAGRAM (02/23/2014 5:33 EDT) WBC 8.20 [...] & PF4 ORD ERABLES Performing Organization Address City[facility] Co de Phone Number [facility] [address] [place] [address] * CREATININE (02/23/2014 5:33 EDT) Creatinine 0.76 0.66 - 1.25 mg/dl [facility] GFR, Calculated >60 >60 ml/min/1.7 3m2 [facility] 02/23/2014 5:33 EDT 02/23/2014 5:45 EDT Endy Mack MD CHEMISTRY & BLOOD GA S ORDERABLES Performing Organization Address [facility] Co de Phone Number [facility] [address] [place] [address] * (ABNORMAL) BUN (02/23/2014 5:33 EDT) BUN 9(L) 10 - 26 mg/dl [facility] 02/23/2014 5:33 EDT 02/23/2014 5:45 EDT Endy Mack MD CHEMISTRY & BLOOD GA S ORDERABLES Performing Organization Address [facility]/ZIP Co de Phone Number [facility] [address] [place] [address] * ELECTROLYTES (02/23/2014 5:33 EDT) Sodium 141 136 - 145 mEq/L [facility] Potassium 4.0 3.5 - 5.0 mEq/L [facility] Chloride 106 96 - 110 mEq/L [facility] CO2 24 24 - 32 mEq/L [facility] 02/23/2014 5:33 EDT 02/23/2014 5:45 EDT Endy Mack MD CHEMISTRY & BLOOD GA S ORDERABLES Performing Organization Address [facility] Co de Phone Number [facility] [address] [place] [address] * (ABNORMAL) PTT (02/23/2014 5:33 EDT) PTT 73(H) 26 - 37 secs [facility] Comment:Therapeutic Heparin range: 65-100 seconds Blood specimen (specimen) 02/23/2014 5:33 EDT 02/23/2014 5:45 EDT Jermaine Tracy MD HEMATOLOGY & PF4 OR DERABLES Performing Organization Address [facility] de Phone Number [facility] [address] [place] [address] * (ABNORMAL) GLUCOSE, GLUCOMETER (02/22/2014 20:43 EDT) Glucose, Fingerstick 110(H) 70 - 100 mg/dl [facility] Collective Bargaining Specialist ID [id number] [facility] Comment:Test Performed by [facility] 02/22/2014 20:4 3 EDT 02/22/2014 20:49 EDT Rafy Lopez MD CHEMISTRY & BLOOD GAS ORDERABLES Performing Organization Address [facility] Co de Phone Number [facility] [address] [place] [address] * INPATIENT ADD-ON (02/22/2014 19:20 EDT) Tests to be added PLEASE ADD JUAN DIEGO CARTAGENA TO PREVIOUS TESTING [facility] Comment: THANK YOU CKMB Number for problems [id number] [facility] Accession number [id number] [facility] 02/22/2014 19:2 0 EDT 02/22/2014 19:23 EDT Rafy Lopez MD HEMATOLOGY & PF4 ORDERABLES Performing Organization Address [facility] de Phone Number [facility] [address] [place] [address] * CK MB WITH TOTAL CK (02/22/2014 17:21 EDT) CK 40 0 - 250 U/L [facility] MB <0.22 <4.21 ng/ml [facility] 02/22/2014 17:2 1 EDT 02/22/2014 17:32 EDT Jermaine Tracy MD CHEMISTRY & BLOOD G ORDERABLES Performing Organization Address [facility] de Phone Number [facility] [address] [place] [address] * TROPONIN I (02/22/2014 17:21 EDT) Troponin I (ng/mL) <0.034 <0.034 ng/ml [facility] Blood specimen (specimen) 02/22/2014 17:21 EDT 02/22/2014 17:32 EDT Jermaine Tracy MD CHEMISTRY & BLOOD G ORDERABLES Performing Organization Address [facility] de Phone Number [facility] [address] [place] [address] * (ABNORMAL) GLUCOSE, GLUCOMETER (02/22/2014 16:32 EDT) Glucose, Fingerstick 144(H) 70 - 100 mg/dl [facility] Collective Bargaining Specialist ID [id number] [facility] Comment:Test Performed by [facility] 02/22/2014 16:3 2 EDT 02/22/2014 16:36 EDT Rafy Lopez MD CHEMISTRY & BLOOD GAS ORDERABLES Performing Organization Address [facility] de Phone Number [facility] [address] [place] [address] * (ABNORMAL) GLUCOSE, GLUCOMETER (02/22/2014 11:15 EDT) Glucose, Fingerstick 102(H) 70 - 100 mg/dl [facility] Collective Bargaining Specialist ID [id number] [facility] Comment:Test Performed by [facility] 02/22/2014 11:1 5 EDT 02/22/2014 11:23 EDT Rafy Lopez MD CHEMISTRY & BLOOD GAS ORDERABLES Performing Organization Address [facility] de Phone Number [facility] [address] [place] [address] * CK MB WITH TOTAL CK (02/22/2014 [...] & BLOOD G ORDERABLES Performing Organization Address [facility] de Phone Number [facility] [address] [place] [address] * TROPONIN I (02/22/2014 10:04 EDT) Troponin I (ng/mL) <0.034 <0.034 ng/ml [facility] Comment: Slight hemolysis Results may be affected due to hemolysis. Blood specimen (specimen) 02/22/2014 10:04 EDT 02/22/2014 10:22 EDT Jermaine Tracy MD CHEMISTRY & BLOOD G ORDERABLES Performing Organization Address [facility]/ZIP Co de Phone Number [facility] [address] [place] [address] * (ABNORMAL) GLUCOSE, GLUCOMETER (02/22/2014 6:30 EDT) Glucose, Fingerstick 131(H) 70 - 100 mg/dl [facility] Collective Bargaining Specialist ID [id number] [facility] Comment:Test Performed by [facility] 02/22/2014 6:30 EDT 02/22/2014 6:45 EDT Rfay Lopez MD CHEMISTRY & BLOOD GAS ORDERABLES Performing Organization Address [facility] de Phone Number [facility] [address] [place] [address] * HEMAGRAM (02/22/2014 6:19 EDT) WBC 8.93 4.0 - 10.4 K/cmm [facility] RBC 4.94 4.36 - 5.78 M/cmm [facility] Hemoglobin 14.6 13.8 - 17.3 gm/dl [facility] HCT 42.7 39.5 - 50.2 % [facility] MCV 86 81 - 95 fl [facility] MCH 29.6 27.6 - 33.0 pg [place] [facility] [facility] MCHC 34.3 32.8 - 36.4 gm/dl [facility] PLT 177 141 - 320 K/cmm [facility] RDW-CV 14.1 11.8 - 14.1 % [facility] 02/22/2014 6:19 EDT 02/22/2014 6:41 EDT Endy Mack MD HEMATOLOGY & PF4 ORD ERABLES Performing Organization Address [facility] Co de Phone Number [facility] [address] [place] [address] * CREATININE (02/22/2014 6:19 EDT) Creatinine 0.80 0.66 - 1.25 mg/dl [facility] GFR, Calculated >60 >60 ml/min/1.7 3m2 [facility] 02/22/2014 6:19 EDT 02/22/2014 6:41 EDT Endy Mack MD CHEMISTRY & BLOOD GA S ORDERABLES Performing Organization Address [facility] de Phone Number [facility] [address] [place] [address] * (ABNORMAL) BUN (02/22/2014 6:19 EDT) BUN 9(L) 10 - 26 mg/dl [facility] 02/22/2014 6:19 EDT 02/22/2014 6:41 EDT Endy Mack MD CHEMISTRY & BLOOD GA S ORDERABLES Performing Organization Address [facility] de Phone Number [facility] [address] [place] [address] * ELECTROLYTES (02/22/2014 6:19 EDT) Sodium 143 136 - 145 mEq/L [facility] Potassium 4.0 3.5 - 5.0 mEq/L [facility] Chloride 105 96 - 110 mEq/L [facility] CO2 28 24 - 32 mEq/L [facility] 02/22/2014 6:19 EDT 02/22/2014 6:41 EDT Endy Mack MD CHEMISTRY & BLOOD GA S ORDERABLES Performing Organization Address [facility] de Phone Number [facility] [address] [place] [address] * (ABNORMAL) PTT (02/22/2014 6:19 EDT) PTT 70(H) 26 - 37 secs [facility] Comment:Therapeutic Heparin range: 65-100 seconds Blood specimen (specimen) 02/22/2014 6:19 EDT 02/22/2014 6:41 EDT Jermaine Tracy MD HEMATOLOGY & PF4 OR DERABLES Performing Organization Address [facility]/ZIP Co de Phone Number [facility] [address] [place] [address] * CK MB WITH TOTAL CK (02/22/2014 2:01 EDT) Pathologist [facility] CK 36 0 - 250 U/L [facility] MB <0.22 <4.21 ng/ml [facility] Blood specimen (specimen) 02/22/2014 2:01 EDT 02/22/2014 2:06 EDT Jermaine Tracy MD CHEMISTRY & BLOOD G ORDERABLES Performing Organization Address [facility] de Phone Number [facility] [address] [place] [address] * (ABNORMAL) PTT (02/22/2014 2:01 EDT) [facility] PTT 71(H) 26 - 37 secs [facility] Comment:Therapeutic Heparin range: 65-100 seconds Blood specimen (specimen) 02/22/2014 2:01 EDT 02/22/2014 2:06 EDT Jermaine Tracy MD HEMATOLOGY & PF4 OR DERABLES Performing Organization Address [facility] de Phone Number [facility] [address] [place] [address] * TROPONIN I (02/22/2014 2:01 EDT) [facility] Troponin I (ng/mL) <0.034 <0.034 ng/ml [facility] Blood specimen (specimen) 02/22/2014 2:01 EDT 02/22/2014 2:06 EDT Jermaine Tracy MD CHEMISTRY & BLOOD G ORDERABLES Performing Organization Address [facility] de Phone Number [facility] [address] [place] [address] * GLUCOSE, GLUCOMETER (02/21/2014 22:06 EDT) Pathologist [facility] Glucose, Fingerstick 86 70 - 100 mg/dl [facility] Collective Bargaining Specialist ID [id number] [facility] Comment:Test Performed by [facility] 02/21/2014 22:0 6 EDT 02/21/2014 22:19 EDT Rafy Lopez MD CHEMISTRY & BLOOD GAS ORDERABLES Performing Organization Address [facility] de Phone Number [facility] [address] [place] [address] * (ABNORMAL) PTT (02/21/2014 21:36 EDT) PTT 64(H) 26 - 37 secs [facility] Comment:Therapeutic Heparin range: 65-100 seconds Blood specimen (specimen) 02/21/2014 21:36 EDT 02/21/2014 21:43 EDT Jermaine Tracy MD HEMATOLOGY & PF4 OR DERABLES Performing Organization Address [facility] de Phone Number [facility] [address] [place] [address] * GLUCOSE, GLUCOMETER (02/21/2014 19:54 EDT) Glucose, Fingerstick 72 70 - 100 mg/dl [facility] Collective Bargaining Specialist ID [id number] [facility] Comment:Test Performed by [facility] 02/21/2014 19:5 4 EDT 02/21/2014 19:56 EDT Rafy Lopez MD CHEMISTRY & BLOOD GAS ORDERABLES Performing Organization Address [facility] de Phone Number [facility] [address] [place] [address] * CREATININE (02/21/2014 19:08 EDT) Creatinine 0.72 0.66 - 1.25 mg/dl [facility] GFR, Calculated >60 >60 ml/min/1.7 3m2 [facility] Blood specimen (specimen) 02/21/2014 19:08 EDT 02/21/2014 19:19 EDT Jermaine Tracy MD CHEMISTRY & BLOOD G ORDERABLES Performing Organization Address [facility] Co de Phone Number [facility] [address] [place] [address] * (ABNORMAL) BUN (02/21/2014 19:08 EDT) BUN 8(L) 10 - 26 mg/dl [facility] Blood specimen (specimen) 02/21/2014 19:08 EDT 02/21/2014 19:19 EDT Jermaine Tracy MD CHEMISTRY & BLOOD G ORDERABLES Performing Organization Address [facility] de Phone Number [facility] [address] [place] [address] * (ABNORMAL) HEMAGRAM (02/21/2014 19:08 EDT) WBC [...] & PF4 OR DERABLES Performing Organization Address [facility] Co de Phone Number [facility] [address] [place] [address] * ELECTROLYTES (02/21/2014 19:08 EDT) Sodium 143 136 - 145 mEq/L [facility] Potassium 3.9 3.5 - 5.0 mEq/L [facility] Chloride 106 96 - 110 mEq/L [facility] CO2 25 24 - 32 mEq/L [facility] Blood specimen (specimen) 02/21/2014 19:08 EDT 02/21/2014 19:19 EDT Jermaine Tracy MD CHEMISTRY & BLOOD G ORDERABLES Performing Organization Address [facility] de Phone Number [facility] [address] [place] [address] * CK MB WITH TOTAL CK (02/21/2014 19:08 EDT) CK 38 0 - 250 U/L [facility] MB <0.22 <4.21 ng/ml [facility] Blood specimen (specimen) 02/21/2014 19:08 EDT 02/21/2014 19:19 EDT Jermaine Tracy MD CHEMISTRY & BLOOD G ORDERABLES Performing Organization Address [facility] de Phone Number [facility] [address] [place] [address] * TROPONIN I (02/21/2014 19:08 EDT) Troponin I (ng/mL) <0.034 <0.034 ng/ml [facility] Blood specimen (specimen) 02/21/2014 19:08 EDT 02/21/2014 19:19 EDT Jermaine Tracy MD CHEMISTRY & BLOOD G ORDERABLES Performing Organization Address [facility] Phone Number [facility] [address] [place] [address] * EKG 12-LEAD (02/21/2014 18:59 EDT) 02/21/2014 18:5 9 EDT Narrative [facility] EKG - 02/22/2014 16:34 EDT ?[facility] ? Test Date: ?2014-02-21 Pat Name: ? ROMEO COELHO ?Department: ?? [facility] ? Room: ? ME506 Gender: ? M ?Separating Machine Operator: ?? [id number] : ?1965 ? Requested By: JERMAINE TRACY MD Order Number: [id number] ? Reading MD: ?? TUYET ADES MD ? Measurements Intervals ?[place] ? Rate: ? 63 ? P: ?10 NE: ? 155 ?QRS: ?15 QRSD: ? 101 [...] Date: 2014-02-21 Pat Name: ROMEO COELHO Department: [place] [address] Room: [facility] Gender: M Separating Machine Operator: [id number] : 1965 Requested By: JERMAINE TRACY MD Order Number: [id number] Reading MD: TUYET CASTRO MD Measurements Intervals [place] Rate: 63 P: 10 NE: 155 QRS: 15 QRSD: 101 T: 29 [...] this encounter Visit Diagnoses Diagnosis Unstable angina ([facility])- Primary Intermediate coronary syndrome Chest pain Chest pain, unspecified S/P coronary artery stent placement Postsurgical percutaneous transluminal coronary angioplasty status CAD (coronary artery disease) Coronary atherosclerosis of unspecified type of vessel, swinomish or graft CAD (coronary artery disease) Coronary atherosclerosis of unspecified type of vessel, swinomish or graft documented in this encounter Administered [...] 09/2013 documented in this encounter Care Teams Mortgage Operations Manager Relationship Specialty Start Date End Date Sarita Lim MD [address] [place] [address] PCP - General 12/17/11 documented as of this encounter
--- OUTSIDE RECORDS SUMMARY | 2024-05-17 16:12 | XMS_ITS | Encounter Summary ---
Author Organization [facility] Address [address] [place] [address] Care Team Providers Care Structural Manager Name Role Phone Sarita Lim MD Primary Care Provider [phone] Reason for Referral * Consult (Routine) - Closed Specialty Diagnoses / Procedures Referred By Contac t Referred To Contact Diagnoses CAD (coronary artery disease) S/P coronary artery stent placement NSTEMI (non-ST elevated myocardial infarction) ([facility]) Kemi Vo NP [address] [address] Benjie Leyva MD [address] [place] [id number] Referral ID Status Reason Start Date Expiration Date V isits Requested Visits Authorized [id number] Closed Specialty Services Required 02/15/2014 1 1 Question Answer Reason for Request: post NSTEMI post pci Scheduling Comments (optional ? describe specific scheduling needs if applicable): 1 month Expected Discharge Date (Inpatient Only): 02/16/2014 Comments Please schedule in [address] Leyva at [facility] Cardiology clinic * Consult (Routine) - Closed Specialty Diagnoses / Procedures Referred By Contac t Referred To Contact Cardiac Rehabilitation Diagnoses CAD (coronary artery disease) S/P coronary artery stent placement NSTEMI (non-ST elevated myocardial infarction) ([facility]) Kemi Vo NP [address] [address] Referral ID Status Reason Start Date Expiration Date V isits Requested Visits Authorized [id number] Closed Specialty Services Required 02/15/2014 1 1 Question Answer Reason for Request: post NSTEMI, CAD, post pci Scheduling Comments (optional ? describe specific scheduling needs if applicable): 1 week Expected Discharge Date (Inpatient Only): 02/16/2014 Comments Please refer to cardiac rehab at [facility] Encounter Details Date Type Department Care Team (Late st Contact Info) Description 02/15/2014 13:04 EDT - 02/16/2014 15:32 EDT Hospital Encounter [facility] Cardiac/Telemetry Unit [address] [place] [address] Mahi Mcginnis MD 111 [facility] [address] [place] [address] Chest pain (Primary Dx); CAD (coronary artery disease); Unstable angina ([facility]); S/P coronary artery stent placement; NSTEMI (non-ST elevated myocardial infarction) ([facility]) Discharge Disposition: Home or Self Care [...] hx of of CAD s/p PCI at [facility] in May 2012 and Jul 2013, [...] up was requested with Dr. Leyva at [facility] Cardiology. Clinical Issues Needing Follow-up: [...] Rehabilitation Please refer to cardiac rehab at [facility] Reason for Request: post NSTEMI, CAD, [...] in [address] Leyva at [facility] Cardiology clinic Reason for Request: post [...] Vo NP Additional Information: Please see your English Composition Teacher Dr Adithya Leyva in [facility], on February at [address] Leyva's telephone number is [phone]. Follow-Up Labs and Tests: None Sophie Salinas MD 02/16/2014 13:57 ATTENDING Attestation statement: I saw and examined the patient with the resident. I agree with the findings and plan of care documented in the resident's note. Vilma Benson Jr., MD sifter operator [facility] Pager [phone] documented in this encounter Discharge Instructions * Appointments* Mariah Munoz - 02/16/2014 13:41 EDT Please see your English Composition Teacher Dr Adithya Leyva in [facility], on February at [address] Leyva's telephone number is [phone]. documented in this encounter Medications at Time [...] Notes * Rosario Russo RN - 02/16/2014 2093 EDT D: Patient discharged home per MD. [...] 1045 EDT 02/16: A volunteer drive from [employer] will pick and shovel man patient in main lobby at 3:30. His name is Sal. Patient aware. Katia Nichols RN [facility] #[id number] * Sophie Salinas MD - 02/15/2014 1600 [...] Salinas MD MPH - PGY 2 Pager [phone] 02/15/2014 * Vilma Benson Jr., MD - [...] or concerns. Sincerely, Vilma Benson Jr. MD sifter operator [facility] Pager # [phone] * Katia Nichols, VERO - 02/15/2014 9958 EDT Initial Case Management/Social Work Assessment and [...] POA &/or COLST IN PLACE: No CULTURAL, FAITH and/or LANGUAGE factors affecting health care/discharge planning:: [...] MODERATE RISK: N/A INITIAL TRANSITION PLAN: Plan [facility] today Transportation from hospital in place? [...] with hx of CAD s/p PCI at [facility] in May 2012 and Jul 2013, [...] #[id number] * Nathan Tyson MD - 02/14/2014 1831 EDT 48 with PMH of HTN, diabetes, dyslipidemia, smoker, coronary artery disease S/P stents in [facility] May of 2012 in Julyo13 was being [...] Notes * Elias Ge MD - 02/14/2014 8538 EDT Internal Medicine Admission H&P Admission Date: 02/14/2014 PCP: SARITA LIM MD CC: chest pain Subjective: HPI: Romeo Coelho is a 48 y.o. year old male with hx of known cad (s/p PCI with 3 stents at [facility]), htn, hld, dmii, who presents [...] clinical course Farhan Alfaro MD Pager # [phone] 02/14/2014 22:33 I have seen and evaluated the patient. I agree with the assessment and plan as outlined above by Dr. Alfaro. Mr. Coelho has known CAD and is s/p PCI at [facility] on at least 2 occassions. He now presents with a clinical history c/w unstable angina. The plan if for [facility] today. The patient is aware and agrees. He also needs risk factor modification - smoking cessation. We emphasized the importance of this AbelrNatalie Coelho. ELIAS GE MD Attending English Composition Teacher documented in this encounter Procedure Notes * Vilma Benson Jr., MD - 02/15/2014 1204 EDT Images from the original note were not included. Cardiovascular Catheterization Laboratory Preliminary Report -- Catheterization Date of Service/Procedure: 02/15/2014 Attending Physician: Vilma Benson Jr., MD Combat Control: Kemi Vo NP Pre-Procedure Diagnosis/Indication: Romeo Coelho [...] artery Procedure: He was brought to the [facility] Cardiac Catheterization Laboratory for the procedure: Diagnostic [...] Care - Asad Bauman RN - 02/15/2014 2370 EDT Problem: CIRCULATORY STATUS Goal: Patient Has [...] Care - Gina Mix RN - 02/15/2014 4310 EDT Problem: Acute Ischemic Pain - Cardiac [...] Care - Asad Bauman RN - 02/14/2014 6883 EDT Problem: HOSPITAL ORIENTATION/SAFETY Goal: Oriented To Hospital Environment Outcome: Completed Date Met: 02/14/14 D: Patient arrived to [place] [address]. Vital signs noted, and tele applied. Patient [...] Patient with 0/10 CP. Plan is for [facility] in AM. 0018: Patient states 4/10 [...] stent placement NSTEMI (non-ST elevated myocardial infarction) ([facility]) Ordered: 02/15/2014 AMB CONS/FOLLOW UP CARDIOLOGY Outpatient Referral Routine CAD (coronary artery disease) S/P coronary artery stent placement NSTEMI (non-ST elevated myocardial infarction) ([facility]) Ordered: 02/15/2014 documented as of this [...] EST) 09/05/2015 10:2 4 EST Scan 2 Executive Associate PROCEDURE/MINOR GUSTAVO GICAL ORDERABLES * ECG REPORT - SCANNED (02/21/2014 15:36 EDT) 02/21/2014 15:3 6 EDT Scan 2 Executive Associate PROCEDURE/MINOR GUSTAVO GICAL ORDERABLES * INVASIVE CARDIOLOGY REPORT-SCANNED (02/21/2014 15:36 EDT) 02/21/2014 15:3 6 EDT Scan 2 Executive Associate PROCEDURE/MINOR GUSTAVO GICAL ORDERABLES * ECG REPORT - SCANNED (02/20/2014 10:15 EDT) 02/20/2014 10:1 5 EDT Scan 2 Executive Associate PROCEDURE/MINOR GUSTAVO GICAL ORDERABLES * ECG REPORT - SCANNED (02/20/2014 10:03 EDT) 02/20/2014 10:0 3 EDT Scan 2 Executive Associate PROCEDURE/MINOR GUSTAVO GICAL ORDERABLES * ECG REPORT - SCANNED (02/17/2014 15:12 EDT) 02/17/2014 15:1 2 EDT Scan 2 Executive Associate PROCEDURE/MINOR GUSTAVO GICAL ORDERABLES * ECG REPORT - SCANNED (02/17/2014 15:10 EDT) 02/17/2014 15:1 0 EDT Scan 2 Executive Associate PROCEDURE/MINOR GUSTAVO GICAL ORDERABLES * (ABNORMAL) GLUCOSE, GLUCOMETER (02/16/2014 12:01 EDT) Glucose, Fingerstick 133(H) 70 - 100 mg/dl [facility] Loft Worker Apprentice ID [id number] [facility] Comment:Test Performed by [facility] 02/16/2014 12:0 1 EDT 02/16/2014 12:02 EDT Mahi Mcginnis MD CHEMISTRY & BLOOD G ORDERABLES [facility] [address] [place] [address] * ECHOCARDIOGRAM (02/16/2014 12:00 EDT) Anatomical Region Laterality Modality Other 02/16/2014 12:0 0 EDT Narrative 02/16/2014 12:53 EDT *Interpreting Group:* *[facility]* [address] [place] [address] *STUDY CONCLUSIONS* Summary: 1. Left ventricle: The [...] Mcginnis MD REFERRING ?Sarita Lim PERFORMING ?? [facility]ly [facility], ORDERING ? Sophie Salinas REFERRING ?Sophie Salinas NUCLEAR REACTOR TECHNICIAN ??Latoya Murcia *PROCEDURE DATA* Procedure information: ??This study was interpreted by [facility] at [facility]. ??Study status: ??Routine. Transthoracic echocardiography. ??M-mode, complete [...] 02/16/2014 12:53 Procedure Note 02/16/2014 *Interpreting Group:* *[facility]* [address] [place] [address] *STUDY CONCLUSIONS* Summary: 1. Left ventricle: The cavity size was normal. Wall thickness was normal. Systolic function was normal. The estimated ejection fraction [id number]%. Wall motion was normal; there were no [...] Fa, ORDERING Sophie Salinas REFERRING Sophie Salinas NUCLEAR REACTOR TECHNICIAN Latoya Murcia *PROCEDURE DATA* Procedure information: This study was interpreted by [facility] at [facility]. Study status: Routine.Transthoracic echocardiography. M-mode, complete 2D, [...] & PF4 ORD ERABLES Performing Organization Address City/[facility]/ZIP Co de Phone Number [facility] [address] [place] [address] * (ABNORMAL) HEMAGRAM (02/16/2014 5:53 EDT) WBC [...] & PF4 ORD ERABLES Performing Organization Address [facility] Co de Phone Number [facility] [address] [place] [address] * PTT (02/16/2014 5:53 EDT) PTT 30 26 - 37 secs [facility] Comment:Therapeutic Heparin range: 65-100 seconds Blood specimen (specimen) 02/16/2014 5:53 EDT 02/16/2014 5:59 EDT Mahi Mcginnis MD HEMATOLOGY & PF4 OR DERABLES Performing Organization Address City/[facility]/ZIP Co de Phone Number [facility] [address] [place] [address] * CREATININE (02/16/2014 5:53 EDT) Creatinine 0.70 0.66 - 1.25 mg/dl [facility] GFR, Calculated >60 >60 ml/min/1.7 3m2 [facility] Blood specimen (specimen) 02/16/2014 5:53 EDT 02/16/2014 5:59 EDT Farhan Alfaro MD CHEMISTRY & BLOOD GA S ORDERABLES Performing Organization Address [facility] Phone Number [facility] [address] [place] [address] * BUN (02/16/2014 5:53 EDT) BUN 11 10 - 26 mg/dl [facility] Blood specimen (specimen) 02/16/2014 5:53 EDT 02/16/2014 5:59 EDT Farhan Alfaro MD CHEMISTRY & BLOOD GA S ORDERABLES Performing Organization Address [facility] Phone Number [facility] [address] [place] [address] * ELECTROLYTES (02/16/2014 5:53 EDT) Sodium 141 136 - 145 mEq/L [facility] Potassium 4.1 3.5 - 5.0 mEq/L [facility] Chloride 104 96 - 110 mEq/L [facility] CO2 25 24 - 32 mEq/L [facility] Blood specimen (specimen) 02/16/2014 5:53 EDT 02/16/2014 5:59 EDT Farhan Alfaro MD CHEMISTRY & BLOOD GA S ORDERABLES Performing Organization Address [facility] Phone Number [facility] [address] [place] [address] * ALT (02/16/2014 5:53 EDT) ALT 22 21 - 72 U/L [facility] Blood specimen (specimen) 02/16/2014 5:53 EDT 02/16/2014 5:59 EDT Kemi Vo WAITER/WAITRESS CHEMISTRY & BLOOD GA S ORDERABLES Performing Organization Address [facility] Co de Phone Number [facility] [address] [place] [address] * AST (02/16/2014 5:53 EDT) AST 15 15 - 46 U/L [facility] Blood specimen (specimen) 02/16/2014 5:53 EDT 02/16/2014 5:59 EDT Kemi Vo WAITER/WAITRESS CHEMISTRY & BLOOD GA S ORDERABLES Performing Organization Address [facility] de Phone Number [facility] [address] [place] [address] * LIPID PROFILE (INCLUDES CHOLESTEROL, TRIGLYCERIDES, HDL, LDL) (02/16/2014 5:53 EDT) Cholesterol 154 mg/dl [facility] Comment: Desirable:<200 Borderline High:200-239 High:>lp=511 Triglycerides 254 mg/dl [facility] Comment: Normal:<150 Borderline High:150-199 High:200-499 Very High:>ce=198 HDL 37 mg/dl [facility] Comment: Low:<40 Normal:40-60 Desirable: >60 LDL, Calculated 66 mg/dl [facility] Comment: Optimal:<100 Near Optimal:100-129 Borderline High:130-159 High:160-189 Very High:>tc=909 Chol/HDL Ratio 4.2 [facility] Fasting? YES [facility] Non HDL Cholesterol 117 mg/dl [facility] Comment: Desirable:<130 Borderline:130-159 High: 160-189 Very High: >tj=732 Blood specimen (specimen) 02/16/2014 5:53 EDT 02/16/2014 5:59 EDT Kemi Vo WAITER/WAITRESS CHEMISTRY & BLOOD GA S ORDERABLES Performing Organization Address [facility] de Phone Number [facility] [address] [place] [address] * CK MB WITH TOTAL CK (02/16/2014 5:53 EDT) CK 47 0 - 250 U/L [facility] MB 0.54 <4.21 ng/ml [facility] Blood specimen (specimen) 02/16/2014 5:53 EDT 02/16/2014 5:59 EDT Kemi Vo NP CHEMISTRY & BLOOD GA S ORDERABLES Performing Organization Address [facility] Co de Phone Number [facility] [address] [place] [address] * (ABNORMAL) GLUCOSE, GLUCOMETER (02/16/2014 5:51 EDT) Glucose, Fingerstick 105(H) 70 - 100 mg/dl [facility] Loft Worker Apprentice ID [id number] [facility] Comment:Test Performed by [facility] 02/16/2014 5:51 EDT 02/16/2014 5:52 EDT Mahi Mcginnis MD CHEMISTRY & BLOOD G ORDERABLES Performing Organization Address [facility] Co de Phone Number [facility] [address] [place] [address] * GLUCOSE, GLUCOMETER (02/15/2014 20:41 EDT) Glucose, Fingerstick 78 70 - 100 mg/dl [facility] Loft Worker Apprentice ID [id number] [facility] Comment:Test Performed by [facility] 02/15/2014 20:4 1 EDT 02/15/2014 20:45 EDT Mahi Mcginnis MD CHEMISTRY & BLOOD G ORDERABLES Performing Organization Address [facility] Co de Phone Number [facility] [address] [place] [address] * (ABNORMAL) GLUCOSE, GLUCOMETER (02/15/2014 16:44 EDT) Glucose, Fingerstick 154(H) 70 - 100 mg/dl [facility] Loft Worker Apprentice ID [id number] [facility] Comment:Test Performed by [facility] 02/15/2014 16:4 4 EDT 02/15/2014 16:49 EDT Mahi Mcginnis MD CHEMISTRY & BLOOD G ORDERABLES [facility] [address] [place] [address] * EKG 12-LEAD (02/15/2014 14:19 EDT) 02/15/2014 14:1 9 EDT Narrative [facility] EKG - 02/17/2014 8:24 EDT ?[facility] ? Test Date: ?2014-02-15 Pat Name: ? ROMEO COELHO ?Department: ?? [facility] 5 ? Room: ? ME507 Gender: ? M ?Sports Medicine Physician: ?? [id number] : ?1965 ? Requested By: KEMI VO NP Order Number: [id number] ? Reading : ?? VILMA BENSON MD ? Measurements Intervals ?[place] ? Rate: ? 57 ? P: ?-3 OR: ? 156 ?QRS: ?22 QRSD: ? 103 [...] Date: 2014-02-15 Pat Name: ROMEO COELHO Department: [facility] Room: [facility] Gender: M Sports Medicine Physician: [id number] : 1965 Requested By: KEMI VO NP Order Number: [id number] Reading MD: VILMA BENSON MD Measurements Intervals [place] Rate: 57 P: -3 OR: 156 QRS: 22 QRSD: 103 T: 44 QT: 401 QTc: 392 Interpretive Statements SINUS BRADYCARDIA Compared to ECG 02/15/2014 08:43:51 Sinus bradycardia now present I reviewed the tracing and agreed or edited the report. ElectronicallySigned On 02-17-14 08:24:39 EDT by VILMA BENSON MD. Kemi Vo WAITER/WAITRESS CARDIAC ECG ORDERABL ES Performing Organization Address [facility] de Phone Number [facility] EKG * CK MB WITH TOTAL CK (02/15/2014 14:02 EDT) CK 51 0 - 250 U/L [facility] MB <0.22 <4.21 ng/ml [facility] Blood specimen (specimen) 02/15/2014 14:02 EDT 02/15/2014 14:30 EDT Farhan Alfaro MD CHEMISTRY & BLOOD GA S ORDERABLES Performing Organization Address [facility] Phone Number [facility] [address] [place] [address] * (ABNORMAL) GLUCOSE, GLUCOMETER (02/15/2014 12:38 EDT) Glucose, Fingerstick 106(H) 70 - 100 mg/dl [facility] Loft Worker Apprentice ID [id number] [facility] Comment:Test Performed by [facility] 02/15/2014 12:3 8 EDT 02/15/2014 13:32 EDT Mahi Mcginnis MD CHEMISTRY & BLOOD G ORDERABLES Performing Organization Address [facility] de Phone Number [facility] [address] [place] [address] * LEFT HEART CATH (02/15/2014 10:55 EDT) Anatomical Region Laterality Modality Other 02/15/2014 10:5 5 EDT Narrative 02/15/2014 16:46 EDT Cardiology [address] [place] [address] Catheterization Laboratory Study Patient: Romeo Coelho ? Study Date: ?02/15/2014 ? Accession #: ? [id number] : ? 1965 Diagnostic Attending: ??Vilma Benson [...] artery access. A 6 FR/10 Terumo Sheath [place] SS .021 sheath was ?advanced into the [...] MD 2014-02-15 16:46 Procedure Note 02/15/[address] [place] [address] Catheterization Laboratory Study Patient: Romeo Coelho Study [...] patient's anginal symptoms and an ACC/AHA type [id number] risk lesion for intervention, with 2 or [...] artery access. A 6 FR/10 Terumo Sheath [place] SS .021sheath was advanced into the vessel. [...] catheter was exchanged for a 6fr Runway [id number]. 9. Pressure derived flow reserve measurement for [...] with two inflations and a maximum pressure [id number]. STUDY COMPLETION: The estimated blood loss was [...] of 12mcg/min. Fentanyl, for a total dose [id number]. Midazolam, for a total dose of 2mg. Nitroglycerin, for a total dose [id number], into the coronary artery. Contrast: Isovue 370 [...] EDT) PTT 96(H) 26 - 37 secs [facility] Comment:Therapeutic Heparin range: 65-100 seconds Blood specimen (specimen) 02/15/2014 8:53 EDT 02/15/2014 9:15 EDT Mahi Mcginnis MD HEMATOLOGY & PF4 OR DERABLES [facility] [address] [place] [address] * EKG 12-LEAD (02/15/2014 8:43 EDT) 02/15/2014 8:43 EDT Narrative [facility] EKG - 02/15/2014 22:25 EDT ?[facility] ? Test Date: ?2014-02-15 Pat Name: ? ROMEO PATELONEY ?Department: ?? Roy 5 ? Room: ? ME507 Gender: ? M ?Sports Medicine Physician: ?? [id number] : ?1965 ? Requested By: SOPHIE SALINAS MD Order Number: [id number] ? Reading MD: ?? KATHIE BARON MD ? Measurements Intervals ?[place] ? Rate: ? 61 ? P: ?-1 OR: ? 149 ?QRS: ?20 QRSD: ? 98 [...] Date: 2014-02-15 Pat Name: ROMEO COELHO Department: [place] [address] Room: [facility] Gender: M Sports Medicine Physician: [id number] : 1965 Requested By: SOPHIE PEREIRA Order Number: [id number] Tiarra MD: KATHIE BARON MD Measurements Intervals [place] Rate: 61 P: -1 OR: 149 QRS: 20 QRSD: 98 T: 37 [...] 70 - 100 mg/dl [facility] Loft Worker Apprentice ID [id number] [facility] Comment:Test Performed by [facility] 02/15/2014 6:40 EDT 02/15/2014 6:41 EDT Mahi Mcginnis MD CHEMISTRY & BLOOD G ORDERABLES Performing Organization Address [facility] Co de Phone Number [facility] [address] [place] [address] * (ABNORMAL) DIFFERENTIAL (02/15/2014 5:34 EDT) Pathologist [...] & PF4 ORD ERABLES Performing Organization Address City/[facility] Co de Phone Number [facility] [address] [place] [address] * (ABNORMAL) HEMAGRAM (02/15/2014 5:34 EDT) WBC 10.55(H) 4.0 - 10.4 K/cmm [facility] RBC 5.08 4.36 - 5.78 M/cmm [facility] Hemoglobin 15.1 13.8 - 17.3 gm/dl [facility] HCT 44.5 39.5 - 50.2 % [facility] MCV 88 81 - 95 fl [facility] MCH 29.8 27.6 - 33.0 pg [facility] MCHC 34.0 32.8 - 36.4 gm/dl [facility] PLT 150 141 - 320 K/cmm [facility] RDW-CV 14.5(H) 11.8 - 14.1 % [facility] 02/15/2014 5:34 EDT 02/15/2014 5:53 EDT Farhan Alfaro MD HEMATOLOGY & PF4 ORD ERABLES Performing Organization Address City/[facility] Co de Phone Number [facility] [address] [place] [address] * CREATININE (02/15/2014 5:34 EDT) Pathologist [facility] Creatinine 0.80 0.66 - 1.25 mg/dl [facility] GFR, Calculated >60 >60 ml/min/1.7 3m2 [facility] Blood specimen (specimen) 02/15/2014 5:34 EDT 02/15/2014 5:53 EDT Farhan Alfaro MD CHEMISTRY & BLOOD GA S ORDERABLES Performing Organization Address City/[facility] Co de Phone Number [facility] [address] [place] [address] * BUN (02/15/2014 5:34 EDT) BUN 10 10 - 26 mg/dl [facility] Blood specimen (specimen) 02/15/2014 5:34 EDT 02/15/2014 5:53 EDT Farhan Alfaro MD CHEMISTRY & BLOOD GA S ORDERABLES Performing Organization Address [facility] de Phone Number [facility] [address] [place] [address] * ELECTROLYTES (02/15/2014 5:34 EDT) Sodium 143 [...] ORDERABLES Performing Organization Address [facility] de Phone Number [facility] [address] [place] [address] * LIPID PROFILE (INCLUDES CHOLESTEROL, TRIGLYCERIDES, HDL, LDL) (02/15/2014 5:34 EDT) Cholesterol 143 mg/dl [facility] Comment: Desirable:<200 Borderline High:200-239 High:>in=705 Triglycerides 266 mg/dl [facility] Comment: Normal:<150 Borderline High:150-199 High:200-499 Very High:>pi=621 HDL 39 mg/dl [facility] Comment: Low:<40 Normal:40-60 Desirable: >60 LDL, Calculated 51 mg/dl [facility] Comment: Optimal:<100 Near Optimal:100-129 Borderline High:130-159 High:160-189 Very High:>fr=592 Chol/HDL Ratio 3.7 [facility] Fasting? Unknown [facility] Non HDL Cholesterol 104 mg/dl [facility] Comment: Desirable:<130 Borderline:130-159 High: 160-189 Very High: >nq=968 Blood specimen (specimen) 02/15/2014 5:34 EDT 02/15/2014 5:53 EDT Farhan Alfaro MD CHEMISTRY & BLOOD GA S ORDERABLES Performing Organization Address [facility]/ZIP Co de Phone Number [facility] [address] [place] [address] * TROPONIN I (02/15/2014 5:34 EDT) Pathologist [facility] Troponin I (ng/mL) <0.034 <0.034 ng/ml [facility] Blood specimen (specimen) 02/15/2014 5:34 EDT 02/15/2014 5:53 EDT Farhan Alfaro MD CHEMISTRY & BLOOD GA S ORDERABLES Performing Organization Address [facility] Phone Number [facility] [address] [place] [address] * CK MB WITH TOTAL CK (02/15/2014 5:34 EDT) Pathologist [facility] CK 55 0 - 250 U/L [facility] MB 0.25 <4.21 ng/ml [facility] Blood specimen (specimen) 02/15/2014 5:34 EDT 02/15/2014 5:53 EDT Farhan Alfaro MD CHEMISTRY & BLOOD GA S ORDERABLES Performing Organization Address [facility] Phone Number [facility] [address] [place] [address] * (ABNORMAL) PTT (02/15/2014 1:57 EDT) Pathologist [facility] PTT 48(H) 26 - 37 secs [facility] Comment:Therapeutic Heparin range: 65-100 seconds Blood specimen (specimen) 02/15/2014 1:57 EDT 02/15/2014 2:20 EDT Mahi Mcginnis MD HEMATOLOGY & PF4 OR DERABLES Performing Organization Address [facility] Hospital de Phone Number [facility] [address] [place] [address] * EKG 12-LEAD (02/15/2014 0:29 EDT) 02/15/2014 0:29 EDT Narrative [facility] EKG - 02/17/2014 11:31 EDT ?[facility] ? Test Date: ?2014-02-15 Pat Name: ? ROMEO COELHO ?Department: ?? Roy 5 ? Room: ? ME507 Gender: ? M ?Sports Medicine Physician: ?? [id number] : ?1965 ? Requested By: MAHI ELENA MD Order Number: [id number] ? Reading MD: ?? ODESSA SANTOS MD ? Measurements Intervals ?[place] ? Rate: ? 61 ? P: ?1 OR: ? 140 ?QRS: ?44 QRSD: ? 101 [...] Date: 2014-02-15 Pat Name: ROMEO COELHO Department: [place] [address] Room: [facility] Gender: M Sports Medicine Physician: [id number] : 1965 Requested By: MAHI ELENA MD Order Number: [id number] Reading MD: ODESSA SANTOS MD Measurements Intervals [place] Rate: 61 P: 1 OR: 140 QRS: 44 QRSD: 101 T: 46 [...] PF4 ORD ERABLES [facility] [address] [place] [address] * (ABNORMAL) HEMAGRAM (02/14/2014 22:43 EDT) WBC [...] & PF4 ORD ERABLES Performing Organization Address [facility] Co de Phone Number [facility] [address] [place] [address] * TROPONIN I (02/14/2014 22:43 EDT) Pathologist [facility] Troponin I (ng/mL) <0.034 <0.034 ng/ml [facility] Blood specimen (specimen) 02/14/2014 22:43 EDT 02/14/2014 22:50 EDT Farhan Alfaro MD CHEMISTRY & BLOOD GA S ORDERABLES Performing Organization Address [facility] de Phone Number [facility] [address] [place] [address] * CK MB WITH TOTAL CK (02/14/2014 22:43 EDT) Pathologist [facility] CK 51 0 - 250 U/L [facility] MB <0.22 <4.21 ng/ml [facility] Blood specimen (specimen) 02/14/2014 22:43 EDT 02/14/2014 22:50 EDT Farhan Alfaro MD CHEMISTRY & BLOOD GA S ORDERABLES Performing Organization Address [facility] de Phone Number [facility] [address] [place] [address] * HEMOGLOBIN A1C (02/14/2014 22:43 EDT) Pathologist [facility] Hemoglobin A1C 6.8 % [facility] Comment: Reference Range: <5.7% Normal 5.7-6.4% [...] BLOOD GA S ORDERABLES Performing Organization Address [facility] de Phone Number [facility] [address] [place] [address] * SCREENING GLUCOSE (02/14/2014 22:43 EDT) Glucose, Screening 94 70 - 100 mg/dl [facility] Blood specimen (specimen) 02/14/2014 22:43 EDT 02/14/2014 22:50 EDT Farhan Alfaro MD CHEMISTRY & BLOOD GA S ORDERABLES Performing Organization Address [facility] [place] [address] * EKG 12-LEAD (02/14/2014 22:28 EDT) 02/14/2014 22:2 8 EDT Narrative [facility] EKG - 02/15/2014 12:55 EDT ?[facility] ? Test Date: ?2014-02-14 Pat Name: ? ROMEO PATELONEY ?Department: ?? Roy 5 ? Room: ? ME507 Gender: ? M ?Sports Medicine Physician: ?? [id number] : ?1965 ? Requested By: FARHAN ALFARO MD Order Number: [id number] ? Reading : ?? ROMEO ART MD ? Measurements Intervals ?[place] ? Rate: ? 60 ? P: ?-7 OR: ? 149 ?QRS: ?31 QRSD: ? 100 [...] Date: 2014-02-14 Pat Name: ROMEO COELHO Department: [place] [address] Room: [facility] Gender: M Sports Medicine Physician: [id number] : 1965 Requested By: FARHAN ALFARO MD Order Number: [id number] Reading MD: ROMEO ART MD Measurements Intervals [place] Rate: 60 P: -7 OR: 149 QRS: 31 QRSD: 100 T: 35 [...] CARDIAC ECG ORDERABL ES Performing Organization Address [facility] Co de Phone Number [facility] * GLUCOSE, GLUCOMETER (02/14/2014 22:26 EDT) Glucose, Fingerstick 87 70 - 100 mg/dl [facility] [employer]ice [place] [id number] [facility] Comment:Test Performed by [facility] 02/14/2014 22:2 6 EDT 02/14/2014 22:44 EDT Mahi Mcginnis MD CHEMISTRY & BLOOD G ORDERABLES Performing Organization Address [facility] Co de Phone Number [facility] [address] [place] [address] documented in this encounter Visit Diagnoses Diagnosis Chest pain- Primary Chest pain, unspecified Chest pain Chest pain, unspecified CAD (coronary artery disease) Coronary atherosclerosis of unspecified type of vessel, morongo or graft Unstable angina (HCC-CMS) Intermediate coronary syndrome S/P coronary artery stent placement Postsurgical percutaneous transluminal coronary angioplasty status NSTEMI (non-ST elevated myocardial infarction) (HCC-CMS) Acute myocardial infarction, subendocardial infarction, episode of care unspecified Unstable angina (HCC-CMS) Intermediate coronary syndrome CAD (coronary artery disease) Coronary atherosclerosis of unspecified type of vessel, morongo or graft documented in this encounter Administered [...] - Comment: wants to wait until after [facility])1315 (Given - Provider: Gina Mix RN [...] Order parameters not met)1744 (Given - Provider: Alfrdeo Marc RN) 0800 (Not Given - Provider: [...] RN - Reason: Other - Comment: s/p [facility]) nitroglycerin 400 mcg/ml in D5W 250 ml infusion (CANCELED) 5 mcg/min (rounded to 0.8 mL/hr), intravenous, CONTINUOUS, Starting on Thu02/15/14 at 0115, Until Thu02/16/14 at 1734, Routine 0058 (New Bag - Provider: Asad Bauman RN)0831 (New Bag - Provider: Gina Mix RN)0833 (Rate Change - Provider: Gina Mix RN)1317 (Hold - Provider: Gina Mix RN - Reason: Other - Comment: s/p [facility]) PRN Medication Order 02/14/2014 02/15/2014 02/16/2014 cyclobenzaprine [...] Chest Pain, Routine 0030 (Given - Provider: sAad Bauman, RN)0037 (Given - Provider: Asad Bauman, [...] 02/14/2014 documented in this encounter Care Teams Structural Manager Relationship Specialty Start Date End Date Sarita Lim MD [address] [place] [id number] PCP - General 12/17/11 documented as of this encounter
--- OUTSIDE RECORDS SUMMARY | 2024-05-17 16:12 | XMS_ITS | Encounter Summary ---
Author Organization [facility] Address [address] [place] [address] Care Team Providers Care Traffic Court Magistrate Name Role Phone Unavailable Primary Care Provider Unavailabl e Encounter Details Date Type Department Care Team (Late st Contact Info) Description 12/15/2011 Results Only [facility] [phone] Randell Kate, [address] [place], [place] [id number] Social History Tobacco Use Types Packs/Day Years [...] ? ROMEO COE ? Accession #: ? [id number] : ? 1965 (Age: 46) ??M ?Collect [...] PATHOLOGY ORDER [facility] [address] [place] [address] documented in this encounter Visit Diagnoses Not on filedocumented in this encounter
--- NOTE | 2024-05-17 16:15 | DI.CT_ITS ---
Exam(s) CT THORAX ABD/PEL CTA EXAM: CT THORAX ABD/PEL CTA CLINICAL HISTORY: chest pain, radiating to back and abdomen. TECHNIQUE: Imaging Protocol: Axial computed tomography images with coronal and sagittal reformatted images were created and reviewed CONTRAST MATERIAL: Intravenous: Omnipaque 350 Contrast volume:100 ml Oral: None COMPARISON: CT CT BRAIN NECK CTA from 04/07/2023 FINDINGS: CHEST: AORTA: The diameter of the ascending thoracic aorta is normal. There is no evidence of aortic dissec tion nor pericardial effusion and there is no enlargement of the thoracic aortic arch nor of the desc ending thoracic aorta. There is also no aneurysm of the abdominal aorta nor significant aneurysmal d ilatation of the iliac arteries. LUNGS: There is some platelike atelectasis in superior segment right lower lobe. There is a 3 millim eter nodule in the lateral aspect of the right upper lobe. There are no significant focal findings i n the opposite-left lung. There are no pleural effusions. No findings in the trachea and mainstem b ronchi. No bronchiectasis.. MEDIASTINUM: There is no hilar nor mediastinal adenopathy. There appears to be a taller than wider no dule in theright thyroid lobe measuring 1.3 x 1.1 cm. Follow-up ultrasound recommended CARDIAC: Heart size is normal. There is no pericardial effusion. ABDOMEN: AORTA: There is no evidence of abdominal aortic aneurysm nor dissection.There is no aneurysmal dilata tion of the common iliac arteries.The celiac and superior mesenteric arteries are patent.The inferior mesenteric artery is patent. No significant stenosis in the renal arteries. Mild atherosclerotic disease in the common iliac arteries without tight stenosis nor aneurysms. Exte rnal iliac arteries are patent bilaterally. Right common femoral artery patent. Mild plaque noted i n the left common femoral artery. There is no ascites. LIVER: There are no focal hepatic lesions nor dilatation of intrahepatic ducts. GALLBLADDER/BILIARY: Gallbladder surgically absent. CBD is not dilated. PANCREAS: No evidence of pancreatic mass nor dilatation of the pancreatic duct. SPLEEN: Spleen is not enlarged. There are no intrasplenic lesions. Splenic and portal veins are no nt. ADRENALS: There are no significant adrenal masses. KIDNEYS: Right kidney unremarkable. There is a cyst in the superior pole of the left kidney which me asures 6 by 4.6 cm. There is a 1.3 cm cyst in the inferior pole region of the opposite-right kidney. These benign renal cysts do not require further investigation. No solid renal masses seen no radio paque calculi. No hydronephrosis. No hydroureter. No abnormality seen in the urinary bladder.. LYMPH NODES: There is no retroperitoneal nor para-aortic adenopathy. No obvious mesenteric masses. ABDOMINAL WALL: No evidence of significant anterior abdominal wall hernia. GI: There is no evidence of bowel obstruction, free air, nor abscess.There are no ischemic appearing bowel loops. No colitis pattern evident. There are diverticuli in the upper sigmoid. No evidence o f obvious diverticulitis. PELVIS: LYMPH NODES: There is no intrapelvic nor inguinal adenopathy. GI: No evidence of appendicitis.Diverticulosis of the sigmoid. No diverticulitis seen. URINARY BLADDER: No calculi nor masses evident REPRODUCTIVE: Prostate size normal. Seminal vesicles unremarkable. OSSEOUS: No significant osseous lesions. Multilevel chronic degenerative disc space narrowing. No listhesis. No pars defects. IMPRESSION: 1. No evidence of thoracic nor abdominal aortic aneurysm nor aneurysmal dilatation of the iliac arter ies. 2. No evidence of aortic dissection nor pericardial effusion. 3. Sigmoid diverticuli but no evidence of acute diverticulitis. No appendicitis. 4. Previous cholecystectomy. No significant dilatation of the biliary tree 5. There is a 3 millimeter nodule incidentally noted in the lateral right lung-right upper lobe. So lid nodules smaller than 6 mm do not require routine follow-up in low risk patients. High risk patie nt recommend follow-up CT scan in 1 year. Lily et al 2017 Report called by myself to ER physician 05/17/2024 at 6:40 p.m. RADIATION DOSE DELIVERED: 1,627.06mGy.cm Total DLP DATA REPOSITORY: All CT scans at this facility are submitted to the National Radiology Data Registry (NRDR) Dose Index Registry (DIR) with the [employer] (ACR). RADIATION OPTIMIZATION: All CT scans at this facility use at least one of these dose optimization te chniques: automated exposure control; mA and/or kV adjustment per patient size (includes targeted exa ms where dose is matched to clinical indication); or iterative reconstruction.
--- NOTE | 2024-05-17 16:25 | W.ED.GENAD ---
Discharge Plan Disposition Patient Disposition: Home Condition: Stable Discharge Details Clinical Impression: Chest pain Primary Care Provider: Coni Lim V ED Provider: Adithya Randhawa Home Meds and New Rx's Prescriptions: New ondansetron 4 mg tablet,disintegrating 4 mg PO Q8H PRN (Reason: nausea and vomiting) Qty: 30 0RF Continued ranolazine 500 mg tablet extended release 12 hr 500 mg PO BID Qty: 60 3RF losartan 25 mg Tablet 12.5 mg PO DAILY duloxetine [Cymbalta] 60 mg Capsule,Delayed Release(Dr/Ec) 60 mg PO BID hydroxyzine pamoate 50 mg capsule 25 mg PO Q4H PRN Qty: 90 Patient Comments: 08/01/15 not recently Rx Instructions: prn headache aspirin [Adult Aspirin Regimen] 81 mg tablet,delayed release (DR/EC) 81 mg PO DAILY sucralfate [Carafate] 1 gram tablet 1 gm PO QACHS colchicine 0.6 mg tablet 0.6 mg PO BID PRN (Reason: gout flare) Patient Comments: 08/01/15 not using docusate sodium [Colace] 100 mg capsule 100 mg PO BID PRN polyethylene glycol 3350 [Miralax] 17 gram/dose powder 17 gm PO DAILY PRN glucagon 3 mg/actuation spray,non-aerosol 3 mg intranasal ONCE Rx Instructions: as a single dose budesonide-formoterol 80-4.5 mcg/actuation HFA aerosol inhaler 1 inh inhalation BID nitroglycerin [Nitrostat] 0.4 MG tablet, sublingual 0.4 mg Sublingual PRN PRN cyclobenzaprine 10 MG tablet 10 mg PO HS PRN bupropion HCl 150 MG tablet extended release 12 hr 150 mg PO QPM pantoprazole 40 MG tablet,delayed release (DR/EC) 40 mg PO BID metformin 1,000 mg tablet extended release 24hr 1,000 mg PO BID Qty: 60 0RF acetaminophen 500 mg Tablet 1,000 mg PO Q8H Qty: 30 0RF albuterol sulfate [Ventolin HFA] 90 mcg/actuation Hfa Aerosol Inhaler 2 puff inhalation Q4H PRN PRN (Reason: Wheezing) Qty: 6.7 0RF gemfibrozil 600 mg Tablet 600 mg PO BID Qty: 20 0RF Rx Instructions: Please, discuss with PCP during f/u lactulose 20 gram/30 mL Solution 20 g PO BID Qty: 1200 0RF metoprolol succinate 100 mg Tablet Extended Release 24 Hr 200 mg PO DAILY Qty: 10 0RF omega-3 acid ethyl esters [Lovaza] 1 gram Capsule 4 g PO DAILY Qty: 30 0RF pramipexole 0.5 mg Tablet 1 mg PO HS Qty: 20 0RF pramipexole 0.5 mg Tablet 0.5 mg PO DAILY Qty: 10 0RF rosuvastatin 10 mg Tablet 20 mg PO HS Qty: 10 0RF topiramate 25 mg tablet See Rx Instructions PO BID Qty: 30 0RF Rx Instructions: 25mg AM and 50mg PM orally twice a day; 25 mg in AM, 50 mg PM. triamcinolone acetonide 0.1 % cream 1 applic TOPICAL BID omega-3 acid ethyl esters [Lovaza] 1 gram capsule 1 cap PO DAILY bupropion HCl 300 mg tablet extended release 24 hr 300 mg PO QAM isosorbide mononitrate 30 mg tablet extended release 24 hr 60 mg PO DAILY Patient Comments: TAKE ONE TABLET BY MOUTH EVERY MORNING gabapentin 800 mg tablet 800 mg PO BID insulin glargine [Lantus Solostar U-100 Insulin] 100 unit/mL (3 mL) Insulin Pen 26 unit subcut HS Discharge Instructions Additional Instructions: Your blood work and imaging did not show concerning findings. You do have a lung nodule that your primary care provider should be aware of as you will need routine imaging of this. Follow-up with your primary care provider within 1 to 2 weeks If you feel more ill, have new symptoms such as high fevers or severe difficulty breathing return to the emergency department for reevaluation. HPI General Mode of arrival: EMS. Date/Time Provider Initiated Documentation: 05/17/24 16:04. Limitations to Documentation: no limitations. Information obtained by: patient. History of Present Illness 58 year old M presents to the emergency department with the chief complaint of chest pain, described as moderate, Quality is described as sharp, and is localized to the chest. Patient reports radiation to back and abdomen. Patient started experiencing this hour(s) (4) and it has been intermittent. No relieving factors improve symptom(s), No exacerbating factors reported . Patient notes chest pain and weakness; denies diaphoresis, nausea/vomiting and shortness of breath. Patient did receive the following treatments prior to arrival, Aspirin (324mg asa with ems) Related Data Home Medications ?Medication ?Instructions ?Recorded ?Confirmed cyclobenzaprine 10 mg tablet 10 mg PO HS PRN 12/31/12 05/17/24 nitroglycerin 0.4 mg sublingual 0.4 mg sublingual PRN PRN 12/31/12 05/17/24 tablet (Nitrostat) bupropion HCl 150 mg tablet,12 hr 150 mg PO QPM 02/14/14 05/17/24 sustained-release pantoprazole 40 mg tablet,delayed 40 mg PO BID 02/14/14 05/17/24 release aspirin 81 mg tablet,delayed 81 mg PO DAILY 12/26/19 05/17/24 release (Adult Aspirin Regimen) hydroxyzine pamoate 50 mg capsule 25 mg PO Q4H PRN #90 tab-caps 12/26/19 05/13/24 sucralfate 1 gram tablet (Carafate) 1 gm PO QACHS 12/26/19 05/17/24 colchicine 0.6 mg tablet 0.6 mg PO BID PRN gout flare 11/23/20 05/17/24 docusate sodium 100 mg capsule 100 mg PO BID PRN 11/23/20 05/17/24 (Colace) polyethylene glycol 3350 17 17 gm PO DAILY PRN 11/23/20 05/17/24 gram/dose oral powder (Miralax) ranolazine 500 mg tablet,extended 500 mg PO BID #60 tabs 11/23/20 05/17/24 release,12 hr duloxetine 60 mg capsule,delayed 60 mg PO BID 12/24/20 05/17/24 release (Cymbalta) losartan 25 mg tablet 12.5 mg PO DAILY 12/24/20 05/17/24 metformin 1,000 mg tablet,extended 1,000 mg PO BID #60 tabs 10/24/21 05/17/24 release 24hr (osmotic) budesonide-formoterol HFA 80 1 inh inhalation BID 06/04/23 05/13/24 mcg-4.5 mcg/actuation aerosol inhaler glucagon 3 mg/actuation nasal spray 3 mg intranasal ONCE 06/04/23 05/13/24 acetaminophen 500 mg tablet 1,000 mg (2 x 500 mg) PO Q8H #30 05/03/24 05/17/24 tabs albuterol sulfate 90 mcg/actuation 2 puff inhalation Q4H PRN PRN 05/03/24 05/17/24 aerosol inhaler (Ventolin HFA) Wheezing #6.7 grams gemfibrozil 600 mg tablet 600 mg PO BID #20 tabs 05/03/24 05/17/24 lactulose 20 gram/30 mL oral 20 g (30 mL) PO BID #1,200 mL 05/03/24 05/17/24 solution metoprolol succinate 100 mg 200 mg (2 x 100 mg) PO DAILY #10 05/03/24 05/17/24 tablet,extended release 24 hr tabs omega-3 acid ethyl esters 1 gram 4 g (4 x 1 gram) PO DAILY #30 caps 05/03/24 05/17/24 capsule (Lovaza) pramipexole 0.5 mg tablet 0.5 mg PO DAILY #10 tabs 05/03/24 05/17/24 pramipexole 0.5 mg tablet 1 mg (2 x 0.5 mg) PO HS #20 tabs 05/03/24 05/17/24 rosuvastatin 10 mg tablet 20 mg (2 x 10 mg) PO HS #10 tabs 05/03/24 05/17/24 topiramate 25 mg tablet See Rx Instructions PO BID #30 tabs 05/03/24 05/17/24 bupropion HCl 300 mg 24 hr tablet, 300 mg PO QAM 05/17/24 05/17/24 extended release gabapentin 800 mg tablet 800 mg PO BID 05/17/24 05/17/24 insulin glargine 100 unit/mL (3 26 unit subcut HS 05/17/24 05/17/24 mL) subcutaneous pen (Lantus Solostar U-100 Insulin) isosorbide mononitrate 30 mg 60 mg PO DAILY 05/17/24 05/17/24 tablet,extended release 24 hr omega-3 acid ethyl esters 1 gram 1 cap PO DAILY 05/17/24 05/17/24 capsule (Lovaza) ondansetron 4 mg disintegrating 4 mg PO Q8H PRN nausea and 05/17/24 tablet vomiting #30 tabs triamcinolone acetonide 0.1 % 1 applic topical BID 05/17/24 05/17/24 topical cream Previous Rx's ?Medication ?Instructions ?Recorded ranolazine 500 mg tablet,extended 500 mg PO BID #60 tabs 11/23/20 release,12 hr metformin 1,000 mg tablet,extended 1,000 mg PO BID #60 tabs 10/24/21 release 24hr (osmotic) acetaminophen 500 mg tablet 1,000 mg (2 x 500 mg) PO Q8H #30 05/03/24 tabs albuterol sulfate 90 mcg/actuation 2 puff inhalation Q4H PRN PRN 05/03/24 aerosol inhaler (Ventolin HFA) Wheezing #6.7 grams gemfibrozil 600 mg tablet 600 mg PO BID #20 tabs 05/03/24 lactulose 20 gram/30 mL oral 20 g (30 mL) PO BID #1,200 mL 05/03/24 solution metoprolol succinate 100 mg 200 mg (2 x 100 mg) PO DAILY #10 05/03/24 tablet,extended release 24 hr tabs omega-3 acid ethyl esters 1 gram 4 g (4 x 1 gram) PO DAILY #30 caps 05/03/24 capsule (Lovaza) pramipexole 0.5 mg tablet 0.5 mg PO DAILY #10 tabs 05/03/24 pramipexole 0.5 mg tablet 1 mg (2 x 0.5 mg) PO HS #20 tabs 05/03/24 rosuvastatin 10 mg tablet 20 mg (2 x 10 mg) PO HS #10 tabs 05/03/24 topiramate 25 mg tablet See Rx Instructions PO BID #30 tabs 05/03/24 ondansetron 4 mg disintegrating 4 mg PO Q8H PRN nausea and 05/17/24 tablet vomiting #30 tabs Allergies Allergy/AdvReac Type Severity Reaction Status Date / Time thallium-201 (Thallium-201) Allergy Severe Pt went to Verified 05/17/24 17:12 [facility] due to med ciprofloxacin Allergy Intermediate Unknown Verified 05/17/24 17:12 lisinopril AdvReac cough Verified 05/17/24 17:12 Paper tape Allergy Intermediate rash Uncoded 05/17/24 17:12 General Stated Complaint: Chest Pain NANCY: 3 Review of Systems All systems reviewed & are unremarkable except as noted in HPI and below Constitutional Constitutional: Denies chills and Denies fever(s) Cardiovascular Cardiovascular: Reports chest pain and Denies dyspnea Respiratory Respiratory: Denies dyspnea Gastrointestinal Gastrointestinal: Reports abdominal pain and Denies vomiting Genitourinary Genitourinary: Denies dysuria Musculoskeletal Musculoskeletal: Denies joint swelling Exam Const General: no acute distress Orientation: alert [facility] Head: normal to inspection Ears: external ears normal General nose exam: external nose normal Mouth: moist mucous membranes Eyes General: appearance normal, both eyes and all related structures Neck Neck: normal visual inspection Resp Effort & Inspection: normal respiratory effort and able to speak in complete sentences Auscultation: clear to auscultation bilaterally Cardio Jugular venous pressure: no JVD Rate: regular rate GI Palpation: soft and tender Skin General skin exam: no rashes or lesions noted Neuro General: patient alert and patient oriented x3 Extrem General: normal to inspection Psych Mental Status: mental status grossly normal Course Vital Signs Vital signs: Vital Signs Pulse 77 05/17/24 16:05 Respiratory Rate 20 05/17/24 16:05 Blood Pressure 90/55 L 05/17/24 16:05 Pulse Oximetry 93 05/17/24 16:05 Pulse 77 05/17/24 16:05 Respiratory Rate 20 05/17/24 16:05 Respiratory Effort Normal, Short of Breath 05/17/24 16:13 Blood Pressure 90/55 L 05/17/24 16:05 Blood Pressure Position Supine 05/17/24 16:05 Pulse Oximetry 93 05/17/24 16:05 Oxygen Delivery Method Room Air 05/17/24 16:05 Oxygen Flow Rate 0 05/17/24 16:05 Pain Level 7 05/17/24 16:05 Medical Decision Making 58-year-old male with history of coronary artery disease status post stenting, diabetes, hyperlipidemia, recent admission earlier this month for chest pain with dehydration comes in with several days of not eating or drinking well due to nausea and then started having chest pain today. He would localize the pain to the mid chest and says it is sharp and radiates to the back and abdomen. He has not had any vomiting, no fevers or chills, no dyspnea, he is mildly hypotensive with a systolic of 90 on arrival. He does seem drowsy but is answering questions appropriately moving his extremities equally. He has clear lung sounds, no JVD, no calf tenderness. Given his history and complaints we will proceed with troponins, CBC, CMP, lipase, given the pain radiates to his back and abdomen obtain a CTA of the chest abdomen pelvis to evaluate for possible dissection. Labs show no significant change from baseline, delta troponins still pending. Imaging still pending. Delta troponin x 2 negative. CTA shows no significant emergent findings. He has a lung nodule which I informed him of an he will follow-up with his PCP for routine imaging to monitor this. He is feeling significant better and has no chest pain. Discussed results with him and discussed observation admission versus discharge and given reassuring workup he declines admission which I feel is reasonable. He will follow-up with his PCP and return precautions given. He does state that he suffers from intermittent nausea time to time, prescription for Zofran to use as needed was provided. Differential Diagnosis Differential Diagnosis: NSTEMI, dissection, dehydration Medical Records Medical records reviewed: Yes I reviewed the patient's medical records. Imaging Data Radiologic Study: Attestation: I personally reviewed and interpreted this imaging study as follows: Imaging: CT Scan Radiologist's impression: Patient Name: Romeo Coe Unit #: [id number] Loc: ER Ordering Provider: Adithya Randhawa M.D. Status: [facility] ER Primary Care Provider: Coni Lim M.D. Date of Exam: 05/17/24 Sex: M : 1965 Age: 58 Exam(s) a CT:CT thorax & abd/pel CTA Exam(s) CT THORAX ABD/PEL CTA EXAM: CT THORAX ABD/PEL CTA CLINICAL HISTORY: chest pain, radiating to back and abdomen. TECHNIQUE: Imaging Protocol: Axial computed tomography images with coronal and sagittal reformatted images were created and reviewed CONTRAST MATERIAL: Intravenous: Omnipaque 350 Contrast volume:100 ml Oral: None COMPARISON: CT CT BRAIN NECK CTA from 04/07/2023 FINDINGS: CHEST: AORTA: The diameter of the ascending thoracic aorta is normal. There is no evidence of aortic dissection nor pericardial effusion and there is no enlargement of the thoracic aortic arch nor of the descending thoracic aorta. There is also no aneurysm of the abdominal aorta nor significant aneurysmal dilatation of the iliac arteries. LUNGS: There is some platelike atelectasis in superior segment right lower lobe. There is a 3 millimeter nodule in the lateral aspect of the right upper lobe. There are no significant focal findings in the opposite-left lung. There are no pleural effusions. No findings in the trachea and mainstem bronchi. No bronchiectasis.. MEDIASTINUM: There is no hilar nor mediastinal adenopathy. There appears to be a taller than wider nodule in theright thyroid lobe measuring 1.3 x 1.1 cm. Follow-up ultrasound recommended CARDIAC: Heart size is normal. There is no pericardial effusion. ABDOMEN: AORTA: There is no evidence of abdominal aortic aneurysm nor dissection.There is no aneurysmal dilatation of the common iliac arteries.The celiac and superior mesenteric arteries are patent.The inferior mesenteric artery is patent. No significant stenosis in the renal arteries. Mild atherosclerotic disease in the common iliac arteries without tight stenosis nor aneurysms. External iliac arteries are patent bilaterally. Right common femoral artery patent. Mild plaque noted in the left common femoral artery. There is no ascites. LIVER: There are no focal hepatic lesions nor dilatation of intrahepatic ducts. GALLBLADDER/BILIARY: Gallbladder surgically absent. CBD is not dilated. PANCREAS: No evidence of pancreatic mass nor dilatation of the pancreatic duct. SPLEEN: Spleen is not enlarged. There are no intrasplenic lesions. Splenic and portal veins are patent. ADRENALS: There are no significant adrenal masses. KIDNEYS: Right kidney unremarkable. There is a cyst in the superior pole of the left kidney which measures 6 by 4.6 cm. There is a 1.3 cm cyst in the inferior pole region of the opposite-right kidney. These benign renal cysts do not require further investigation. No solid renal masses seen no radiopaque calculi. No hydronephrosis. No hydroureter. No abnormality seen in the urinary bladder.. LYMPH NODES: There is no retroperitoneal nor para-aortic adenopathy. No obvious mesenteric masses. ABDOMINAL WALL: No evidence of significant anterior abdominal wall hernia. GI: There is no evidence of bowel obstruction, free air, nor abscess.There are no ischemic appearing bowel loops. No colitis pattern evident. There are diverticuli in the upper sigmoid. No evidence of obvious diverticulitis. PELVIS: LYMPH NODES: There is no intrapelvic nor inguinal adenopathy. GI: No evidence of appendicitis.Diverticulosis of the sigmoid. No diverticulitis seen. URINARY BLADDER: No calculi nor masses evident REPRODUCTIVE: Prostate size normal. Seminal vesicles unremarkable. OSSEOUS: No significant osseous lesions. Multilevel chronic degenerative disc space narrowing. No listhesis. No pars defects. IMPRESSION: 1. No evidence of thoracic nor abdominal aortic aneurysm nor aneurysmal dilatation of the iliac arteries. 2. No evidence of aortic dissection nor pericardial effusion. 3. Sigmoid diverticuli but no evidence of acute diverticulitis. No appendicitis. 4. Previous cholecystectomy. No significant dilatation of the biliary tree 5. There is a 3 millimeter nodule incidentally noted in the lateral right lung-right upper lobe. Solid nodules smaller than 6 mm do not require routine follow-up in low risk patients. High risk patient recommend follow-up CT scan in 1 year. Lab Data Lab results reviewed: Yes I reviewed the patient's lab results. ECG Data Attestation: I personally reviewed and interpreted this ECG (s) as follows: Prior ECG tracings: available for review Interpretation: Sinus rhythm, rate of 73, NV 164, no STEMI Quality:SDOH Health Related Social Needs: Health related social needs transpo insecurity PFSH All Active Problems (Updated 05/17/24 @ 19:41 by Adithya Randhawa MD) Chest pain (Acute) History of PSVT (paroxysmal supraventricular tachycardia) (Acute) Hyperammonemia (Acute) Hyperglycemia (Acute) Thyroid nodule (Acute) Hyperplastic colon polyp (Acute) Tubular adenoma of colon (Acute) CAD (coronary artery disease) (Chronic) a. LAD stent at [facility] 2012 b. Restenosis of LAD and two more stents to LAD at [facility] 01/2014 c. 50% proximal RCA lesion d. Recurrent angina on Ranolazine e. Normal [place] scan 08/2014 Tobacco abuse (Chronic) History of TIA (transient ischemic attack) (Chronic) Obesity (Chronic) Diabetes mellitus, type II (Chronic) Hypertension (Chronic) Hyperlipidemia (Chronic) Atherosclerotic cardiovascular disease (Acute) Atypical angina (Acute) Screening for colon cancer (Acute) Encounter for colorectal cancer screening (Acute) Medical History Encephalopathy 04/08/23 with syncope, [facility] ER [facility] d/c 04/09/23 [facility] Hemiplegic migraine (03/21/15) Migraine headache with aura (03/21/15) Medication overuse headache (03/21/15) Knee pain Diabetes mellitus Ketoacidosis due to secondary diabetes mellitus Low back pain Asthma COPD (chronic obstructive pulmonary disease) Abscess of right groin Dental infection Discharge planning issues Hypomagnesemia Ileitis Hematuria Smoker Myocardial infarction, inferior wall 2013 Hemiplegic migraine With intractable migraine, so stated, without mention of status migrainosus Postural lightheadedness Gastropathy Duodenitis Syncope Left cervical radiculopathy Gastroparesis diabeticorum RLS (restless legs syndrome) Tachycardia, paroxysmal Myalgia Leg pain, right Family history of colon cancer Reaction, situational Headache Acute diarrhea Abdominal pain Hypotensive episode Diverticulitis Peripheral neuropathy Palpitations Chronic pain Knee pain, left Hip pain, right Cervicalgia Shoulder pain, left Depression H/O: gout GERD (gastroesophageal reflux disease) Fibromyalgia Thyroid nodule Cholelithiasis a. cholecystectomy Surgical History Hx of discectomy History of arthroscopic surgery of shoulder Hx of tonsillectomy History of cholecystectomy History of knee surgery History of colonoscopy (~09/2021) History of coronary artery stent placement H/O surgical procedure a. cath and stents b. cholecystectomy c. back surgery Family History Other Cancer Colon cancer Social History Smoking/Tobacco Use Status: Current every day Tobacco Type: cigarettes Smoking risk assessment performed?: Yes Alcohol Intake: former Drug use: Daily Substance use type: marijuana Details: 2-3 joints/day Household members: spouse Housing: house Number of Children: 2 current occupation: Disabled Current gender identity: male What type of physical activity do you participate in: walking, independent ambulation and additional Details: work at home (outside work) Do you feel safe at home: Yes Do you feel safe in your relationship?: Yes
[2024-05-17 16:39] LABS: Abs Immature Grans 0.06 10^3/uL (0.0-0.06); Absolute Basophil Count 0.07 10^3/uL (0.0-0.2); Absolute Eosinophil Count 0.32 10^3/uL (0.0-0.7); Absolute Lymphocyte Count 2.44 10^3/uL (1.2-3.4); Absolute Monocyte Count 0.49 10^3/uL (0.1-0.8); Absolute Neutrophil Count 2.91 10^3/uL (1.2-6.7); BE (Venous) -5 mmol/L (-2-3); Basophils % 1.1 %; Eosinophils % 5.1 %; HCO3 (Venous) 22 mmol/L (23-28); HCT 45.9 % (40.0-50.0); HGB 14.9 g/dL (13.5-17.5); Lymphocytes % 38.8 %; MCH 28.5 pg (27.0-33.0); MCHC 32.5 % (32.0-36.0); MCV 88 fL (80-95); MPV 10.4 fL (8.0-11.0); Monocytes % 7.8 %; Neutrophils % 46.2 %; O2 Sat (Venous) 63 %; Platelet Count 243 10^3/uL (130-400); RBC 5.22 10^6/uL (4.36-5.78); RDW 13.9 % (11.8-14.1); RDW-SD 44.7 fL; TCO2 (Venous) 20 mmol/L (24-29); WBC 6.29 10^3/uL (4.4-10.8); pCO2 (Venous) 46 mmHg (41-51); pH (Venous) 7.29 (7.31-7.41); pO2 (Venous) 33 mmHg
[2024-05-17 16:53] LABS: PTT Activated 18.7 sec (23.6-32.8); Prothrombin Time 10.3 sec (9.1-11.1)
[2024-05-17] MEDS: Normal Saline 500 ML IV (17:09)
[2024-05-17] MEDS: Normal Saline Flush 10 ML SYR IVP (17:10)
[2024-05-17 17:38] LABS: ALT 18 U/L (16-63); AST 19 U/L (15-37); Albumin 3.7 g/dL (3.4-5.0); Alkaline Phosphatase 67 U/L (46-116); Anion Gap 13.4 mmol/L (3-11); BUN 13 mg/dL (7-18); Bilirubin, Total 0.45 mg/dL (0.2-1.0); CO2 22.6 mmol/L (21.0-32.0); Chloride 102 mmol/L (98-107); Estimated GFR 88.33 (mL/min/1.73m2); Glucose 170 mg/dL (74-106); Magnesium 1.7 mg/dL (1.8-2.4); Potassium 4.1 mmol/L (3.5-5.1); Sodium 138 mmol/L (136-145); TSH (W/Ref FT4) 0.54 uIU/mL (0.36-3.74); Total Protein 7.6 g/dL (6.4-8.2); Troponin I 5 ng/L (<or=76)
[2024-05-17] MEDS: Normal Saline - Diluent 50 ML VIAL IJ (17:47)
[2024-05-17] MEDS: Omnipaque 350 MG/ML 100 ML BTL IJ (17:48)
[2024-05-17 17:55] LABS: Procalcitonin < 0.1 ng/mL
[2024-05-17 17:57] LABS: Lipase 30 U/L (16-77); NT-proBNP 38 pg/mL (<300)
[2024-05-17 18:45] LABS: Troponin I 4 ng/L (<or=76)
[2024-05-17 19:26] LABS: Troponin I 4 ng/L (<or=76)
[2024-05-17 20:08] LABS: Bilirubin Negative (Negative); Blood Negative (Negative); Clarity Clear (Clear); Glucose Negative (Negative); Ketones Negative (Negative); Leukocyte Esterase Negative (Negative); Nitrite Negative (Negative); Specific Gravity <= 1.005 (1.005-1.025); Urobilinogen 0.2 mg/dL (Up to 0.2)
== END 2024-05-17 20:30 | disposition home or self-care (01) ==
PROVIDERS: Emergency Provider Emergency Medicine; PCP Family Medicine
DX: R07.9 Chest pain, unspecified (principal); I10 Essential (primary) hypertension; E78.5 Hyperlipidemia, unspecified; I25.2 Old myocardial infarction; J44.9 Chronic obstructive pulmonary disease, unspecified; R91.1 Solitary pulmonary nodule; F17.210 Nicotine dependence, cigarettes, uncomplicated; Z90.49 Acquired absence of other specified parts of digestive tract; Z79.82 Long term (current) use of aspirin; Z79.84 Long term (current) use of oral hypoglycemic drugs; Z79.4 Long term (current) use of insulin; Z86.73 Personal history of transient ischemic attack (TIA), and cerebral infarction without residual deficits
CPT/HCPCS: 36415; 71275; 80053; 82805; 82962; 83690; 84145; 93005; 96360; 99285; 74174; 81003; 82248; 83735; 83880; 84443; 84484; 85025; 85610; 85730; 93010; 99284; J3490

== ENCOUNTER 2024-08-05 15:59 | Emergency (ER) | payer MEDICARE, MEDICAID, SELFPAY ==
[2024-08-05] VITALS (37 sets, daily range): BP systolic 105–133; BP diastolic 54–81; PULSE 71–85; RESP 9–23; TEMP 36.6; O2SAT 83–98
--- NOTE | 2024-08-05 15:45 | RT.EKG_ITS ---
APPROVED REPORT Exam: Resting ECG Reason for Exam: syncopal episode Patient Location: E HR:76 bpm ECG Measurements Heart Rate 76 AXIS CA 135 P 11 QRSd 80 QRS 35 QT 351 T 45 QTc 396 Conclusion Sinus rhythm, rate 76 No interval abnormalities No STEMI No significant change from priors
--- NOTE | 2024-08-05 16:00 | DI.CT_ITS ---
Exam(s) CT BRAIN NECK CTA EXAM: CT BRAIN NECK CTA CLINICAL HISTORY: AMS, L. arm drift, eval stroke. TECHNIQUE: Imaging Protocol: Axial CT angiography was performed with multi-slice acquisition and mu lti-planar and MIP reconstructions. CONTRAST MATERIAL: Intravenous: Omnipaque 350 Contrast volume:100 ml COMPARISON: CT CT HEAD WO from 05/01/2024 FINDINGS: CT Head W/O and W contrast: Ventricles and Extra axial spaces: Normal in size and morphology for the patient's age. Hemorrhage: None. Cerebral parenchyma: No evidence of acute infarct or mass. Midline shift: None. Brainstem/Cerebellum: No acute findings.. Calvarium: Normal. Visualized Paranasal sinuses/Mastoids: Opacification of several ethmoid air cells. Soft Tissues: Unremarkable. Enhancement: Normal. CTA Brain W: Internal Carotid Arteries: Petrous: Normal. Cavernous: Normal. Cerebral: Normal. Middle Cerebral Arteries: Right: No aneurysm, occlusion or significant stenosis. Left: No aneurysm, occlusion or significant stenosis. Anterior Cerebral Arteries: Right: No aneurysm, occlusion or significant stenosis. Left: No aneurysm, occlusion or significant stenosis. Posterior cerebral Arteries: Right: No aneurysm, occlusion or significant stenosis. Left: No aneurysm, occlusion or significant stenosis. Vertebral Arteries: Right: No aneurysm, occlusion or significant stenosis. Left: No aneurysm, occlusion or significant stenosis. Basilar Artery: No aneurysm, occlusion or significant stenosis. CTA Neck W: Common Carotid: Mild plaque at the common common carotid bulbs. Right: No dissection, occlusion or significant stenosis. Left: No dissection, occlusion or significant stenosis. External Carotid: Right: No dissection, occlusion or significant stenosis. Left: No dissection, occlusion or significant stenosis. Internal Carotid: Right: No dissection, occlusion or significant stenosis. Left: No dissection, occlusion or significant stenosis. Vertebral Artery: Right: No dissection, occlusion or significant stenosis. Left: No dissection, occlusion or significant stenosis. Lung Apices: No acute findings. Minimal emphysematous changes. Bones: No acute abnormality. Soft Tissues: Normal. IMPRESSION: 1. CTA brain: Normal CTA examination of the [place]. 2. Head CT: Unremarkable CT Head. 3. CTA neck: Minimal calcific plaque at the common carotid bulbs. Vertebral arteries show normal ivy meter throughout. No evidence dissection. RADIATION DOSE DELIVERED: Total DLP DATA REPOSITORY: All CT scans at this facility are submitted to the National Radiology Data Registry (NRDR) Dose Index Registry (DIR) with the [employer] (ACR). RADIATION OPTIMIZATION: All CT scans at this facility use at least one of these dose optimization te chniques: automated exposure control; mA and/or kV adjustment per patient size (includes targeted exa ms where dose is matched to clinical indication); or iterative reconstruction.
--- NOTE | 2024-08-05 16:07 | DI.RAD_ITS ---
Exam(s) XR CHEST 2V PA LATERAL CLINICAL HISTORY: AMS/CP TECHNIQUE: 2D digital imaging was performed. COMPARISON: CR XR PORTABLE CHEST AP from 04/30/[address] THORAX ABD/PEL CTA from 05/17/2024 FINDINGS: Exam is limited by patient body habitus and under penetration. There is also poor pulmonary inflatio n. LUNGS: Clear. No pleural abnormality seen. HEART: Normal size. AORTA: Normal diameter. BONES: Unremarkable for age. Soft tissues: Unremarkable. IMPRESSION: No acute findings. DATA REPOSITORY: RADIATION DOSE DELIVERED:
[2024-08-05 16:28] LABS: BE (Venous) 0 mmol/L (-2-3); HCO3 (Venous) 26 mmol/L (23-28); O2 Sat (Venous) 81 %; TCO2 (Venous) 23 mmol/L (24-29); pCO2 (Venous) 44 mmHg (41-51); pH (Venous) 7.38 (7.31-7.41); pO2 (Venous) 44 mmHg
[2024-08-05] MEDS: Omnipaque 350 MG/ML 100 ML BTL IJ (16:28)
[2024-08-05 16:31] LABS: Abs Immature Grans 0.06 10^3/uL (0.0-0.06); Absolute Basophil Count 0.08 10^3/uL (0.0-0.2); Absolute Eosinophil Count 0.46 10^3/uL (0.0-0.7); Absolute Lymphocyte Count 2.46 10^3/uL (1.2-3.4); Absolute Monocyte Count 0.73 10^3/uL (0.1-0.8); Absolute Neutrophil Count 5.14 10^3/uL (1.2-6.7); Basophils % 0.9 %; Eosinophils % 5.2 %; HCT 42.8 % (40.0-50.0); Immature Grans % 0.7 %; Lymphocytes % 27.5 %; MCH 28.7 pg (27.0-33.0); MCHC 32.7 % (32.0-36.0); MCV 88 fL (80-95); MPV 9.9 fL (8.0-11.0); Monocytes % 8.2 %; Neutrophils % 57.5 %; Platelet Count 251 10^3/uL (130-400); RBC 4.87 10^6/uL (4.36-5.78); RDW 13.7 % (11.8-14.1); RDW-SD 44.4 fL; WBC 8.93 10^3/uL (4.4-10.8)
[2024-08-05] MEDS: Normal Saline - Diluent 50 ML VIAL IJ (16:32)
[2024-08-05 16:53] LABS: Ammonia 19 umol/L (11-32); Prothrombin Time 10.2 sec (9.1-11.1)
[2024-08-05 17:15] LABS: ALT 11 U/L (16-63); Albumin 3.6 g/dL (3.4-5.0); Alkaline Phosphatase 73 U/L (46-116); Anion Gap 9.5 mmol/L (3-11); BUN 14 mg/dL (7-18); Bilirubin, Total 0.25 mg/dL (0.2-1.0); CO2 25.5 mmol/L (21.0-32.0); CREATININE 1.1 mg/dL (0.70-1.30); Calcium 9.5 mg/dL (8.5-10.1); Chloride 104 mmol/L (98-107); Creatine Kinase 98 U/L (39-308); Glucose 232 mg/dL (74-106); Magnesium 1.8 mg/dL (1.8-2.4); Sodium 139 mmol/L (136-145); Total Protein 7.3 g/dL (6.4-8.2)
[2024-08-05 17:17] LABS: AST < 5 U/L (15-37); Troponin I < 4 ng/L (<or=76)
--- OUTSIDE RECORDS SUMMARY | 2024-08-05 17:18 | XMS_ITS | Encounter Summary ---
Author Organization [facility] [place] [address] Care Team Providers Care Irish Moss Bleacher Name Role Phone Coni Lim MD Primary Care Provider Reason for Referral * Audiology Exam (Routine) - Closed Specialty Diagnoses / Procedures Referred By Contac t Referred To Contact Audiology Diagnoses Bilateral hearing loss, unspecified hearing loss type Coni Lim MD [address] [place] [address] [facility] [address] [place] [id number] Referral ID Status Reason Start Date Expiration Date V isits Requested Visits Authorized [id number] Closed Specialty Service Requested PCP Updated and/or Approved 12/04/2023 06/06/2024 6 6 Encounter Details Date Type Department Care Team (Latest Contact Info) Description 12/24/2023 Transcribe Orders eDH Incoming Referrals [phone] Coni Lim MD [address] [place], [place] [id number] Bilateral hearing loss, unspecified hearing loss type [...] type documented in this encounter Care Teams Irish Moss Bleacher Relationship Specialty Start Date End Date Coni Lim MD [address] [place] [address] PCP - General 07/16/10 documented as of this encounter
--- OUTSIDE RECORDS SUMMARY | 2024-08-05 17:18 | XMS_ITS | Encounter Summary ---
Author Organization [facility] Address [facility] [place] [address] Care Team Providers Care Heat Set Operator Name Role Phone Coni Lim MD Primary Care Provider [phone] Encounter Details Date Type Department Care Team (Late st Contact Info) Description 04/07/2023 7:35 PM EDT Ancillary Procedure Radiology Library at [facility] [place] [address] Patel Griggs MD [facility] [place] [address] Social History Tobacco Use Types Packs/Day Years [...] Abdomen Pelvis (04/07/2023 7:23 PM EDT) Narrative [facility] - 04/07/2023 7:23 PM EDT This exam is auto-finalizing. It's purpose is for storage only. Patel Griggs MD [facility] FILM LIBRARY ORD ERABLES [facility] [place], [place] documented in this encounter Visit Diagnoses Not on filedocumented in this encounter Care Teams Heat Set Operator Relationship Specialty Start Date End Date Coni Lim MD [address] [place] [address] PCP - General 07/16/10 documented as of this encounter
--- OUTSIDE RECORDS SUMMARY | 2024-08-05 17:18 | XMS_ITS | Clinical Summary ---
Author Organization [facility] Address [facility] [place] [address] Care Team Providers Care Computer Systems Engineer Name Role Phone Coni Lim MD Primary Care Provider [phone] Allergies Active Allergy Reactions Criticality Noted Date [...] be different from the original. Notified by [facility] in [place], [place] pt will need PA for Brilinta. Had DR. Nagy complete PA form. CRC faxed to [facility] with Fax confirmation received.. CRC Faxed copy of Brilinta coupon to [facility]. 30 day supply will be able to be filled on Thursday 06/07. CRC contacted [facility] in [place], [place]. They confirmed they can dispense 10 90 mg tabs to pt until Thursday. Pt's Dasia notified by CRC of plan to hot die picker Brilintal Rx at [facility] and then Full Rx from [facility] on Thursday. Pt's verbalized understanding. CRC notified Dr. Nagy of plan. Chester GRAHAM, RN Clinical Liquor Rectifier Pager [phone] Problem Noted Date Diagnosed Date Conjunctival lesion [...] with 3.5 X 18 mm [facility] 2009 post abnormal nuc stress +IW, EF normal - Recurrent angina, CCS class III - Cardiac catheterization 06/03/2012: 2 vessel CAD (LAD and LCX), +FFR of both lesions s/p PCI to pOM1 (3.0 x 18 mm Xience JACINDA) and mLAD (3.0 x 20 mm Promus Element JACINDA) Immunizations Name Administration Dates Next Due Influenza (Novel Q1P5-43) Injectable 05/24/2009 Influenza PF, Split 07/30/2013 Influenza Trivalent w/Preservative 06/15/2012 Influenza Vaccine, Whole 05/24/2009,06/21/2008 Pneumococcal 23-Valent Polysaccharide (Pneumovax 23) 05/24/2009 Family History Medical History Relation Comments Heart Disease Brother 1 Heart Disease Brother 2 Diabetes Brother 3 Diabetes Brother 4 Hypertension Brother 5 Hypertension Brother 6 Hyperlipidemia Brother 7 Hyperlipidemia Brother 8 Heart Disease Father Myocardial Infarction Father [place], CABG Diabetes Mother Heart Disease Mother Hyperlipidemia [...] Hepatitis B vaccine (0-59 yrs) (1) 1986 Tetanus/Diphtheria/Pertussis Vaccines (1 - Tdap) 1986 Zoster vaccine (1 of 2) 2017 DM Hemoglobin A1c 06/15/2019 03/15/2019, , 11/22/2016, Additional history exists Advance Directive 2022 DM Creatinine yearly 06/10/2022 06/10/2021, 06/10/2021, 2021, Additional history exists Covid-19 Vaccine (1 - 2023-2 5 season) 2024 Influenza (Flu) vaccine (1 o [...] Glucose Fasting 195(H) 65 - 99 mg/dL [facility] [...] of Diabetes Mellitus, Position Statement from the [place] [employer]. ??Diabetes Care, Volume 33, Supplement 1, Aug 2009 Blood Urea Nitrogen 9(L) 10 - 20 mg/dL [facility] Creatinine 0.79(L) 0.80 - 1.50 mg/dL [facility] Sodium 134(L) 135 - 145 mmol/L [facility] Potassium 4.1 3.5 - 5.0 mmol/L [facility] Comment: Please note: ??Patients with WBC >100,000 may have falsely elevated Potassium levels. ??For accurate Potassium quantification in these patients send serum separator tube (gold top) for subsequent determinations. ??Contact the Clinical Chemistry Laboratory if there are any questions. Chloride 103 98 - 107 mmol/L [facility] Carbon Dioxide 18(L) 22 - 31 mmol/L [facility] Anion Gap 13 5 - 15 mmol/L [facility] Calcium 9.4 8.5 - 10.5 mg/dL [facility] Est Glomerular Filtration Rate 102 >=60 mL/min/1. 73 m?? [facility] Comment: This patient? s estimated [...] In Lab Coni GROVER CHEMISTRY ORDERABLE S [facility] [place] [address] * (ABNORMAL) Hemoglobin A1c (03/15/2019 5:01 AM EDT) Hemoglobin A1c 6.8(H) 4.3 - 5.6 % [facility] [...] Mellitus, Diabetes Care 2013; 36: Suppl. 1, X26-81 Estimated Average Glucose 148 mg/dL [facility] Comment: eAG equivalents [...] into estimated average glucose values. ??Diabetes Care 2008:31(8):5436-4097. Blood specimen (specimen) 03/15/2019 5:01 AM EDT 03/15/2019 5:12 AM EDT Narrative Resulting Agency Comment Spec In Lab Siri Bush NATIONAL SALES EXECUTIVE CHEMISTRY ORDERABL ES [facility] [place] [address] from Last 3 Months or Most Recently [...] is based on Patients wishes. Care Teams Computer Systems Engineer Relationship Specialty Start Date End Date Coni Lim MD [address] [place] [address] PCP - General 07/16/10
--- OUTSIDE RECORDS SUMMARY | 2024-08-05 17:18 | XMS_ITS | Encounter Summary ---
Author Organization [facility] Address [facility] [place] [address] Care Team Providers Care Security Alarm Technician Name Role Phone Coni Lim MD Primary Care Provider [phone] Encounter Details Date Type Department Care Team (Late st Contact Info) Description 04/07/2023 7:40 PM EDT Ancillary Procedure Radiology Library at [facility] [place] [address] Patel Griggs MD [facility] [place] [place] [address] Social History Tobacco Use Types Packs/Day Years [...] And Spine (04/07/2023 7:25 PM EDT) Narrative [facility] - 04/07/2023 7:25 PM EDT This exam is auto-finalizing. It's purpose is for storage only. Patel Griggs MD [facility] FILM LIBRARY ORD ERABLES DH [place], [place] documented in this encounter Visit Diagnoses Not on filedocumented in this encounter Care Teams Security Alarm Technician Relationship Specialty Start Date End Date Coni Lim MD [address] [place] [address] PCP - General 07/16/10 documented as of this encounter
--- OUTSIDE RECORDS SUMMARY | 2024-08-05 17:18 | XMS_ITS | Encounter Summary ---
Author Organization [facility] Address [facility] [place] [address] Care Team Providers Care Plastics Plater Name Role Phone Coni Lim MD Primary Care Provider [phone] Encounter Details Date Type Department Care Team (Late st Contact Info) Description 04/07/2023 [place]phone [place] [address] Patel Griggs MD [facility] [place] [address] Social History Tobacco Use Types Packs/Day Years [...] EDT Neurology Attending I spoke with caregivers [facility]. There is no capacity here to [...] recommended trying to transfer the patient to [facility] Patel Griggs MD [place] [address] Pager #[phone] Email: [email or web address] documented in this encounter Plan of Treatment Not on file documented as of this encounter Visit Diagnoses Not on filedocumented in this encounter Care Teams Plastics Plater Relationship Specialty Start Date End Date Coni Lim MD [address] [place] [address] PCP - General 07/16/10 documented as of this encounter
--- OUTSIDE RECORDS SUMMARY | 2024-08-05 17:19 | XMS_ITS | Encounter Summary ---
Author Organization [facility] Address [facility] [place] [address] Care Team Providers Care Survey Superintendent Name Role Phone Coni Lim MD Primary Care Provider Reason for Visit * Auth/Cert Specialty Diagnoses / Procedures Referred By Ruby garvin Referred To Contact Diagnoses Unstable angina Chest pain Procedures EMERGENCY IPI Referral ID Status Reason Start Date Expiration Date Visits Re quested Visits Authorized [id number] 1 1 Encounter Details Date Type Department Care Team (Late st Contact Info) Description 2021 7:02 PM EDT - 06/10/2021 6:29 PM EDT Hospital Encounter Intermediate [place] [id number] Zuleyka Hodgson MD [facility] [place] [address] Supa Alegria MD [facility] [place] [address] Chest pain, unspecified type Discharge Disposition: Home [...] Romeo Coe Patient Age: 56 y.o. Language: [place] Race: White Ethnicity: Not nor Admit date: 2021 Discharge date and time: 06/10/2021 5:40 PM Attending Physician: Supa Alegria MD Discharge Physician: Supa Alegria MD Follow-up Recommendations for Providers: Romeo Coe is a 56 year old male admitted for chest pain concerning for unstable angina. 1. ASCVD / Microvascular angina: [facility] 06/10/21 without obstructive CAD and with patent [...] Escobar APRN Sarah Hansen, PA-C Cardiovascular Medicine [phone] Discharge Diagnoses (Hospital Problems) and Secondary Diagnoses (Chronic Problems): Active Hospital Problems Diagnosis ??? Unstable angina ??? Chest pain ??? Smoker ??? CAD (coronary artery disease) ??? Dyslipidemia ??? HTN (hypertension) ??? DM (diabetes mellitus) Resolved Hospital Problems No resolved problems to display. Active Non-Hospital Problems Diagnosis ??? Hx-TIA (transient ischemic attack) ??? GERD (gastroesophageal reflux disease) ??? Conjunctival lesion Operations/Major Procedures: [facility] 06/10/21 Hemodynamics: Left Heart Pressures Resting: Syst [...] 2011, LAD stent in 2012, RCA stent [id number]. His most recent coronary angiogram (2019) showed [...] since 2011 and last JACINDA to RCA [id number]. Last LHC 2019 with residual ~40% LAD [...] SOB prior to discharge. Follow up with blindstitch machine operator, Dr. Gutierrez, was arranged. ?? Right??groin cellulitis, abscess with spontaneous drainage Patient noted to have right groin erythema consistent with cellulitis. He remained afebrile and without leukocytosis. Blood cultures obtained at OSH were NGTD at 2 days (spoke with microbiology at [facility] on 06/10/21). These were repeated [...] CTA chest was made. ?? Diabetes mellitus, qgx-lrjaepg-bjxmqocyq, uncontrolled A1c of 9.4%. Home metformin held [...] Studies and Lab Data: Blood cultures at [facility] and [facility]. Discharge Conditions/Prognosis: Alert and oriented x 3, ambulatory-independent. Ambulated without chest pain or SOB prior to discharge. Discharge to: Home. Updated Allergies/ADRs: Allergies Allergen Reactions ??? Thallium-201 Severe cardiac event ??? Lisinopril Other (See Comments) cough ??? Paper Tape [Adhesive Tape] Rash Immunizations Given this Hospitalization: Immunization History Administered Date(s) Administered ??? Influenza PF, Split 07/30/2013 ??? Influenza Vaccine (Novel) [id number], Injectable 05/24/2009 ??? Influenza Vaccine w/Preservative, Split [...] of 8AM-5PM please call the Cardiology Clinic [phone] to speak with a nurse. All other hours please call the Hospital Oyster Opener [phone] and ask to speak to the plant anatomy teacher on-call. Return to work: One week Driving: [...] Time PCP COLEEN Wen [address] [place] [address] Jun 20 10:00am Straddle Bug Dr. Gutierrez [facility] Cardiology [phone] ThursdayJul 23 11:40am Discharge References/Attachments Angina ([place]) Discussed with MD Coni Escobar PA-C Pager #[phone] 06/10/2021 documented in this encounter Discharge Instructions [...] of 8AM-5PM please call the Cardiology Clinic [phone] to speak with a nurse. All other hours please call the Hospital Oyster Opener [phone] and ask to speak to the plant anatomy teacher on-call. Return to work: One week Driving: [...] Time PCP COLEEN Wen [address] [place] [address] Jun 20 10:00am Straddle Bug Dr. [facility] Cardiology [phone] ThursdayJul 23 11:40am * Patient Instructions* Coni Lew PA - 06/10/2021 3:07 PM EDT * Attachments The following attachments cannot be sent through Care Everywhere. * Angina ([place]) documented in this encounter Medications at Time [...] to destination and request payment authorization from -Managers. Transport initiated/not confirmed: Spoke with NOELLE from [facility] who initiated a ride with their scheduling department/dispatch to pick patient up at discharge 06/10/21 from the MAIN entrance at ~18:00 en route to HOME UPDATE 16:06 Discharge Transportation confirmed: Spoke with ELMIRA from [facility] who confirmed a rental car ferry driver provided by web operations specialistULISES will arrive to pick patient up at discharge 06/10/21 from the MAIN entrance at 18:00 en route to HOME. Bedside nurse notified via eDH chat. [facility] PHONE: [phone] * Supa Alegria MD - 06/10/2021 8:04 AM EDT Images from the original note were not included. Inpatient Cardiology Progress Note Patient Name: Romeo Coe Service: PULPWOOD CONTRACTOR / PA Responsible Attending: Supa Alegria MD [...] nausea overnight,patient reports resolution. In agreement for [facility] today. Continues on IV antibiotics for concern [...] last 168 hours. Recent Labs 06/10/2134306/08/21 193 CALCIUM 9.4 9.3 Recent Labs 06/10/2134306/09/21 1747 [...] since 2011 and last JACINDA to RCA [id number]. Last LHC 2018 with residual ~40% LAD [...] PRN EKG for chest pain Plan for [facility] today, remains NPO Right groin cellulitis, abscess [...] chest at this time ?? Diabetes mellitus, vqg-ciljdbq-bgtrqrjef, uncontrolled A1c of 9.4% Hold home metformin [...] Discussed with MD Coni Escobar PA-C Pager #[phone] 06/10/2021 Cardiology Attending Note I have seen and examined the patient. I agree with the findings above. Of note, he is feeling well today. His groin site shows no evidence of fluid collection. Blood cultures show no growth. We will proceed with coronary angiography and possible PCI Supa Alegria MD [facility] Total time spent on review of [...] Progress Note Patient Name: Romeo Coe Service: PULPWOOD CONTRACTOR / PA Responsible Attending: Supa Alegria MD Reason for continued hospitalization: Evaluation and management of unstable angina- cath Right groin cellulitis-IV abx Medication adjustment Active Problems: Active Hospital Problems Diagnosis ??? Unstable angina ??? Chest pain ??? Smoker ??? CAD (coronary artery disease) -Coronary Angio 07/29/2013: 65% (FFR 0.74) mid LAD lesion s/p PCI with 3.5 X 18 mm JACINDA - [facility] 2009 post abnormal nuc stress +IW, EF [...] mLAD and pOM1 in 2012, mLAD in 2013, RCA in 2017, most recent [...] CTA at this time ?? Diabetes mellitus, ljb-tyyenls-uxejctktf Poor control with A1c of 9.4 Carb [...] ?Routine Diet: Daily Healthy Menu Choices/Cardiac diet ([facility]-Diet) CHO counting level 2 DVT Prophylaxis: already [...] bloodcultures, and probably proceed tomorrow on antibiotics. Spua Alegria MD [facility] Total time spent on review of [...] PCP: Coni Lim MD PCP phone number: [phone] Date of Admission: 2021 ( Hospital Day 0 days ) Attending:Zuleyka Hodgson MD Patient Active Problem List Diagnosis ??? ','Unstable angina ??? Chest pain ??? Smoker ??? CAD (coronary artery disease) Overview Note: -Coronary Angio 07/29/2013: 65% (FFR 0.74) mid LAD lesion s/p PCI with 3.5 X 18 mm JACINDA - [facility] 2009 post abnormal nuc stress +IW, EF [...] Lives with and daughter at home in [place], [place]. He is disabled now. He used [...] THROMBIN TIME Cardiac Enzymes Recent Labs 06/08/21 1931 TROPONINT <0.01 Endocrine No results for input(s): TSH, CORTISOL in the last 7068 hours. Invalid input(s): [id number] No results for input(s): POCGLU in the last 168 hours. Heme No results for input(s): LDH, HAPTOGLOBIN, URICACID in the last 168 hours. ABG (Arterial Blood Gas) No results found for: PHART, PO2ART, IHK9JVY, YIF5SBL Microbiology: Microbiology Results (Last 30 days) No [...] (porcine) AND heparin (porcine) infusion Recent diagnostics: [facility] (2019): Left Main The left main was [...] Obtain Echo - Serial cardiac enzymes - ekg monitor - Cardiac cath in a.m. - [...] infection. No hypoxia or tachycardia #Diabetes mellitus, ppb-cwxhzbs-ygmmlghqi, poor control with A1c of 9.4 -Diabetic [...] #Routine Diet: Daily Healthy Menu Choices/Cardiac diet ([facility]-Diet) 75/75/90 CHO counting level 3 DVT Prophylaxis: already on heparin drip Code Status: Attempt Cardiopulmonary Resuscitation - Inpatient Dispo: Pending clinical course Isaiah Hoyos MD Pager #[phone] 06/08/21 8:56 PM documented in this encounter [...] cath without complications. Coni Lew PA-C Pager #[phone] 06/10/2021 * Initial Assessments - Ruthie Macias RN - 06/10/2021 3:39 PM EDT Office of Care Management Initial Assessment Ruthie Macias RN reviewed record and discussed patient with Care Team. Source of Information: Team, bedside nurse, medical record, and Patient Introduced self/reviewed role; services accepted. Reason for Hospitalization: unstable angina Last COVID test: Lab Results Component Value Date [id number] Not Detected 06/09/2021 Past medical History: Past [...] dyer would be surrogate decision maker per [place] surrogatedecision making law. (Only good for 180 days) Any patient receiving care at [facility] must abide by [place] law. The hierarchy for surrogate decision making [...] (i) The agent with financial power of assistant county attorney or a conservator appointed in accordance [...] cane - straight Home Address confirmed as: [address] [place] [id number] Social & Family Supports: All names listed below confirmed with patient as current and correct Extended Emergency Contact Information Primary Emergency Contact: Dasia Coe Address: [address] [place] [address] of [facility] Mobile Relation: Spouse Current Care Provided [...] MEDICAID [place] Prescription Coverage: Yes Preferred Pharmacy: No [facility] [place], [place] - [address] [place] [address] [place] [id number] [place] Status: Patient is a : No Primary Care Provider: Coni Lim MD [phone] Patient/Caregiver Goals of Treatment: dc to home [...] ambulation, driving. He drove his car to [facility] and then required a BLS to transport here to [facility]. He will require assistance in finding A ride to home when he is dced. Pt has supports in place to accessthe necessary care and or follow up after dishcharge and there are no RN CM or PYTHON DJANGO DEVELOPER needs that are identified at this time Plan: dc to home A member of the Care Management team will continue to monitor progress, follow for continuity of care and assist with transition of care planning. Ruthie Macias RN CM [phone] Pager [phone] * Consult Note - Elena Zaragoza APRN [...] historically A1c has been 6-7. Lives in [facility] with Dasia. States the last few [...] QPM ??? [OCT Hold] Vancomycin Level - [facility] Order Reminder NOT APPLICABLE Once ??? [OCT [...] 10 gm carb ratio for each meal) longterm diabetes care: Medications - Outpatient treatment regimen recommendations pending based on the hospital course. Monitoring - continue BG tid ac & hs Diet - low fat/low carb diet Exercise - weight-bearing exercise 30 min/day, as tolerated Thank you for allowing us to provide care for your patient Elena Zaragoza APRN Endocrinology Pager [phone] 70 minutes of this 80 minute visit was spent with the patient in counseling on diabetes and treatment plan, reviewing all glucose and insulin data as well as relevant laboratory results with the patient, and coordination of care on the inpatient unit * Brief Op Note - Jose Trimble MD - 06/10/2021 11:37 AM EDT Brief Operative Note Patient Name: Romeo Coe : [id number] MR#: [id number] Case Date: 06/10/2021 Straddle Bug: * Jose Trimble MD - Primary * Syed Solorio MD - Fellow Preoperative diagnosis: nstemi Postoperative diagnosis:NSTEMI with stable coronary anatomy Preliminary Cardiac Catheterization Procedure Note: Procedure(s) performed: Coronary Angiography, Left Heart Cath Baseline Frailty Assessment: Definitions from [place] Study of Health and Aging Clinical Frailty [...] Full report to follow. JOSE TRIMBLE MD printing services coordinator Pager [phone] * Plan of Care - Fabienne Morelos RN - 06/09/2021 2:57 PM EDT OUTCOME EVALUATION NOTE: OUTCOME SUMMARY: A/O x4. VSS on RA. NSR on tele. Heparin gtt maintained per protocol.IV zosyn and vanc given per protocol. (see MAR). BG elevated, MD notified, insulin scale adjusted. PLAN MOVING FORWARD: BC results cytogenetics laboratory manager D/c planning INDIVIDUALIZED FALL PREVENTION INTERVENTIONS: Patient-specific [...] SOB reported, remains on room air overnight. [place] very nauseous after he went to the [...] further details. Isaiah Hoyos MD 2021 Pager [phone] documented in this encounter Plan of Treatment [...] 06/09/2021 5:50 AM EDT RAPID COVID-19 PCR ([facility]) Routine 06/09/2021 5:45 AM EDT POCT [...] * POCT Glucose (06/10/2021 4:20 PM EDT) [facility] Glucose, POC 177 65 - 199 mg/dL [facility] Comment: Supplemental ranges: <140 mg/dL before meals <180 mg/dL all other times of the day Blood 06/10/2021 4:20 PM EDT 06/10/2021 4:20 PM EDT Supa Alegria MD POINT OF CARE TEST O RDERABLES [facility] [place] [address] * Troponin (06/10/2021 1:07 PM EDT) [facility] Troponin-T <0.01 0.00 - 0.00 ng/mL [facility] Comment: The 99th percentile [...] ischemia ?? New or presumed new significant UB-crkpckd-D wave (ST-T) changes or new left bundle [...] additional sample may be indicated. Reference: Third Hastings Definition of Myocardial Infarction. Journal of the [place] College of Cardiology 2012;60:1581-98 Blood 06/10/2021 1:07 PM EDT 06/10/2021 1:18 PM EDT Narrative Resulting Agency Comment Spec In Lab Isaiah Hoyos MD CHEMISTRY ORDERABLE S Performing Organization Address City/[facility]/ZIP Co de Phone Number [facility] [place] [address] * POCT Glucose (06/10/2021 11:58 AM EDT) [facility] Signature Glucose, POC 175 65 - 199 mg/dL [facility] Comment: Supplemental ranges: <140 mg/dL before meals <180 mg/dL all other times of the day Blood 06/10/2021 11:5 8 AM EDT 06/10/2021 11:58 AM EDT Supa Alegria MD POINT OF CARE TEST O RDERABLES [facility] [place] [address] * CARDIAC CATHETERIZATION (06/10/2021 11:45 AM EDT) Anatomical Region Laterality Modality Other Narrative 06/10/2021 12:54 PM EDT ?[facility] ? Cardiac Catheterization/Intervention Report ? Patient Name: Coe, Romeo A. ? Procedure Date: 06/10/2021 ? A #: [id number] ? Primary Physician: Trimble, Jose V ? Case #: [id number] ? File Name: [id number] ? Catheterization Order Number: [id number] ? [facility] ? Final Report [place], [place] ? Patient Name: ? Romeo Coe ? ID#: ?[id number] ? : ?1965 ? Procedure Date: ? [...] was ?designated as ASA Class II. The [facility] clinical frailty scale is 2: Well. [...] procedure was Urgent. The indication for ?the ammunition assembly laborer visit is worsening angina. Chest pain [...] Procedure Note Jose Trimble MD - 06/10/2021 [facility] Cardiac Catheterization/Intervention Report Patient Name: Coe Romeo PopNatalie Procedure Date: 06/10/2021 A #: [id number] Primary Physician: Jose Trimble V Case #: [id number] File Name: [id number] Catheterization Order Number: [id number] [facility] FinalReport [place], [place] Patient Name: Romeo PopNatalie Coe ID#:[id number] :1965 Procedure Date: June 10, 2021 Case [...] was designated as ASA Class II. The [facility] clinical frailty scale is 2:Well. Diagnostic [...] diagnostic procedure was Urgent. The indicationfor the ammunition assembly laborer visit is worsening angina. Chest pain [...] units of heparin were administered. A total es249rs of Omnipaque were opened, 38cc of Omnipaque were administered cji21hf of Omnipaque were wasted. Radiation: Fluoro time [...] Glucose, POC 191 65 - 199 mg/dL [facility] Comment: Supplemental ranges: <140 mg/dL before meals <180 mg/dL all other times of the day Blood 06/10/2021 7:59 AM EDT 06/10/2021 7:59 AM EDT Supa Alegria MD POINT OF CARE TEST O RDERABLES [facility] [place] [address] * (ABNORMAL) BMP w/fasting Glucose (06/10/2021 3:44 AM EDT) Glucose Fasting 195(H) 65 - 99 mg/dL [facility] [...] of Diabetes Mellitus, Position Statement from the [place] Diabetes Association. ??Diabetes Care, Volume 33, Supplement 1, Aug 2009 Blood Urea Nitrogen 9(L) 10 - 20 mg/dL [facility] Creatinine 0.79(L) 0.80 - 1.50 mg/dL [facility] Sodium 134(L) 135 - 145 mmol/L [facility] Potassium 4.1 3.5 - 5.0 mmol/L [facility] Comment: Please note: ??Patients with WBC >100,000 may have falsely elevated Potassium levels. ??For accurate Potassium quantification in these patients send serum separator tube (gold top) for subsequent determinations. ??Contact the Clinical Chemistry Laboratory if there are any questions. Chloride 103 98 - 107 mmol/L [facility] Carbon Dioxide 18(L) 22 - 31 mmol/L [facility] Anion Gap 13 5 - 15 mmol/L [facility] Calcium 9.4 8.5 - 10.5 mg/dL [facility] Est Glomerular Filtration Rate 102 >=60 mL/min/1. 73 m?? [facility] Comment: This patient? s [...] In Lab Coni GROVER CHEMISTRY ORDERABLE S [facility] [place] [address] * Troponin (06/10/2021 3:44 AM EDT) Troponin-T <0.01 0.00 - 0.00 ng/mL [facility] Comment: The 99th percentile [...] ischemia ?? New or presumed new significant OE-wabvpav-U wave (ST-T) changes or new left bundle [...] additional sample may be indicated. Reference: Third Hastings Definition of Myocardial Infarction. Journal of the [place] College of Cardiology 2012;60:1581-98 Blood Venous Draw / Unknown 06/10/2021 3:44 AM EDT 06/10/2021 4:06 AM EDT Narrative Resulting Agency Comment Spec In Lab Isaiah Hoyos MD CHEMISTRY ORDERABLE S Performing Organization Address [facility] Co de Phone Number [facility] [place] [address] * Green Tube HOLD (06/10/2021 3:44 AM EDT) Green Hold Sample in lab. [facility] Blood Venous Draw / Unknown 06/10/2021 3:44 AM EDT 06/10/2021 4:03 AM EDT Isaiah Hoyos MD CHEMISTRY ORDERABLE S Performing Organization Address [facility] Co de Phone Number [facility] [place] [address] * POCT Glucose (06/10/2021 3:44 AM EDT) Glucose, POC 191 65 - 199 mg/dL [facility] Comment: Supplemental ranges: <140 mg/dL before meals <180 mg/dL all other times of the day Blood 06/10/2021 3:44 AM EDT 06/10/2021 3:44 AM EDT Supa Alegria MD POINT OF CARE TEST O RDERABLES Performing Organization Address [facility] de Phone Number [facility] [place] [address] * Heparin (unfractionated) Level (06/10/2021 3:44 AM EDT) [facility] UF Heparin 0.38 IU/mL [facility] Comment: Guidelines for [...] MD HEMATOLOGY ORDERABL ES Performing Organization Address [facility] Co de Phone Number [facility] [place] [address] * (ABNORMAL) Differential, Automated (06/10/2021 3:44 AM EDT) [facility] Neutrophil % 55.0 % [facility] Neutrophil Absolute 4.98 1.70 - 6.10 x10(3)/mc L [facility] Lymph % 29.1 % [facility] Lymphocytes Abs 2.6 0.9 - 3.2 x10(3)/ L [facility] Monocyte % 7.5 % [facility] Monocyte Abs 0.7 0.3 - 0.9 x10(3)/[facility] Eos % 5.9 % [facility] Eosinophils Abs 0.5(H) 0.0 - 0.4 x10(3)/[facility] Basophil % 1.1 % [facility] Baso Absolute 0.1 0.0 - 0.1 x10(3)/[facility] Immature Gran % 1.40 % [facility] Comment: Immature [...] Lab Isaiah Hoyos MD HEMATOLOGY ORDERABL ES [facility] [place] [address] * Hemogram (06/10/2021 3:44 AM EDT) White Blood Cell 9.0 4.0 - 9.5 x10(3)/[facility]AT[facility] Red Blood Cell 4.97 4.58 - 5.54 x10(6)/[facility] Hemoglobin 14.2 13.7 - 16.5 g/dL [facility] Hematocrit 42.8 40.5 - 48.5 % [facility] Mean Cell Volume 86.1 82.9 - 93.1 fL [facility] Mean Cell Hemoglobin 28.6 27.5 - 32.1 pg [facility] Mean Cell Hemoglobin Concentration 33.2 32.0 - 35.7 g/dL [facility] Platelet 251 145 - 357 x10(3)/[facility] LABORATORY RDW Standard Deviation 40.5 36.0 - 45.0 [facility] RDW coefficient of variation 13.0 11.4 - 13.8 % [facility] Mean Platelet Volume 10.5 7.6 - 12.9 [facility]ORY NRBC% auto 0.0 % [facility] NRBC Absolute 0.000 0.000 - 0.000 x10(3)/[facility] Blood 06/10/2021 3:44 AM EDT 06/10/2021 4:03 AM EDT Narrative Resulting Agency Comment Spec In Lab Isaiah Hoyos MD HEMATOLOGY ORDERABL ES Performing Organization Address City/[facility]/ZIP Co de Phone Number [facility] [place] [address] * POCT Glucose (06/09/2021 11:57 PM EDT) Glucose, POC 147 65 - 199 mg/dL [facility] Comment: Supplemental ranges: <140 mg/dL before meals <180 mg/dL all other times of the day Blood 06/09/2021 11:5 7 PM EDT 06/09/2021 11:57 PM EDT Supa Alegria MD POINT OF CARE TEST O RDERABLES Performing Organization Address City/[facility]/ZIP Co de Phone Number [facility] [place] [address] * POCT Glucose (06/09/2021 8:06 PM EDT) Glucose, POC 193 65 - 199 mg/dL [facility] Comment: Supplemental ranges: <140 mg/dL before meals <180 mg/dL all other times of the day Blood 06/09/2021 8:06 PM EDT 06/09/2021 8:06 PM EDT Supa Alegria MD POINT OF CARE TEST O RDERABLES Performing Organization Address City/[facility]/ZIP Co de Phone Number [facility] [place] [address] * Troponin (06/09/2021 5:47 PM EDT) Troponin-T <0.01 0.00 - 0.00 ng/mL [facility] Comment: The 99th percentile [...] ischemia ?? New or presumed new significant IQ-jrltzmc-N wave (ST-T) changes or new left bundle [...] additional sample may be indicated. Reference: Third Hastings Definition of Myocardial Infarction. Journal of the [employer] [employer] 2012;60:1581-98 Blood 06/09/2021 5:47 PM EDT 06/09/2021 6:02 PM EDT Narrative Resulting Agency Comment Spec In Lab Isaiah Hoyos MD CHEMISTRY ORDERABLE S Performing Organization Address [facility]/ZIP Co de Phone Number [facility] [place] [address] * (ABNORMAL) POCT Glucose (06/09/2021 4:40 PM EDT) Glucose, POC 200(H) 65 - 199 mg/dL [facility] Comment: Supplemental ranges: <140 mg/dL before meals <180 mg/dL all other times of the day Blood 06/09/2021 4:40 PM EDT 06/09/2021 4:40 PM EDT Supa Alegria MD POINT OF CARE TEST O RDERAAIRAM Performing Organization Address [facility] Co de Phone Number [facility] [place] [address] * (ABNORMAL) POCT Glucose (06/09/2021 3:02 PM EDT) Glucose, POC 209(H) 65 - 199 mg/dL [facility] Comment: Supplemental ranges: <140 mg/dL before meals <180 mg/dL all other times of the day Blood 06/09/2021 3:02 PM EDT 06/09/2021 3:02 PM EDT Supa Alegria MD POINT OF CARE TEST O BOBERAAIRAM Performing Organization Address [facility] Co de Phone Number [facility] [place] [address] * ECHO COMPLETE W CONTRAST (06/09/2021 1:52 PM EDT) Anatomical Region Laterality Modality Other 06/09/2021 Narrative 06/09/2021 2:16 PM EDT Procedure: ?Transthoracic Echocardiogram Patient: ?LAQUITA DOHERTY A ? (Age): 1965(56y) Med Rec#: ? [id number] ?Sex: ?M ? [place] Loc[place] ? [facility] [place]Ht / Wt: ??177(cm)/114(kg) Pt. Loc: ?[facility] ? BSA: ?2.29 Study Date: ?? 06/09/2021 ?Pt. Type: Inpatient Tape: ? Referring: ALTUJJARMOHAMMAD Reading: Zuleyka Hodgson ([id number]) Field Insurance Sales Manager: Ortiz Sandoval Diagnosis: *Chest pain, unspecified (R07.9) [...] Vmax ?0.67 ? m/sec ? MV deceleration twsp270.55 ? msec ? MV A-wave Vmax ?0.48 [...] 06/09/2021 14:15:33 Images reviewed and interpretation verified [facility] Procedure Note Zuleyka Hodgson MD - 06/09/2021 Procedure: Transthoracic Echocardiogram Patient: LAQUITA Pop (Age): 1965(56y) Med Rec#: [id number] Sex: M [place] Loc[place] [facility] Ht / Wt: 177(cm)/114(kg) Pt. Loc: [facility] BSA: 2.29 Study Date: 06/09/2021 Pt. Type: Inpatient Tape: Referring: ALTUJJARMOHAMMAD Reading: Zuleyka Hodgson ([id number]) Field Insurance Sales Manager: Ortiz Sandoval Diagnosis: *Chest pain, unspecified (R07.9) [...] MV E-wave Vmax 0.67 m/sec MV deceleration irrd882.55 msec MV A-wave Vmax 0.48 m/sec MV [...] 06/09/2021 14:15:33 Images reviewed and interpretation verified [facility] Isaiah Hoyos MD ECHO ORDERABLES * (ABNORMAL) POCT Glucose (06/09/2021 11:49 AM EDT) Glucose, POC 258(H) 65 - 199 mg/dL [facility] Comment: Supplemental ranges: <140 mg/dL before meals <180 mg/dL all other times of the day Blood 06/09/2021 11:4 9 AM EDT 06/09/2021 11:49 AM EDT Supa Alegria MD POINT OF CARE TEST O RDERABLES [facility] [place] [address] * Troponin (06/09/2021 11:30 AM EDT) [facility] Troponin-T <0.01 0.00 - 0.00 ng/mL [facility] Comment: The 99th percentile [...] ischemia ?? New or presumed new significant CR-qifchht-L wave (ST-T) changes or new left bundle [...] additional sample may be indicated. Reference: Third Hastings Definition of Myocardial Infarction. Journal of the [place] [employer] 2012;60:1581-98 Blood 06/09/2021 11:3 0 AM EDT 06/09/2021 11:44 AM EDT Narrative Resulting Agency Comment Spec In Lab Isaiah Hoyos MD CHEMISTRY ORDERABLE S Performing Organization Address [facility] de Phone Number [facility] [place] [address] * Heparin (unfractionated) Level (06/09/2021 11:30 AM EDT) UF Heparin 0.32 IU/mL [facility] Comment: Guidelines for [...] ORDERABLE S Performing Organization Address [facility] de Phone Number [facility] [place] [address] * (ABNORMAL) POCT Glucose (06/09/2021 8:03 AM EDT) Glucose, POC 233(H) 65 - 199 mg/dL [facility] Comment: Supplemental ranges: <140 mg/dL before meals <180 mg/dL all other times of the day Blood 06/09/2021 8:03 AM EDT 06/09/2021 8:03 AM EDT Supa Alegria MD POINT OF CARE TEST O RDERABLES [facility] [place] [address] * (ABNORMAL) Differential, Automated (06/09/2021 5:50 AM EDT) Neutrophil % 56.8 % [facility] Neutrophil Absolute 4.64 1.70 - 6.10 x10(3)/ L [facility] Lymph % 27.0 % [facility] Lymphocytes Abs 2.2 0.9 - 3.2 x10(3)/ L [facility] Monocyte % 8.6 % [facility] Monocyte Abs 0.7 0.3 - 0.9 x10(3)/ L [facility] Eos % 5.6 % [facility] Eosinophils Abs 0.5(H) 0.0 - 0.4 x10(3)/ L [facility] Basophil % 0.9 % [facility] Baso Absolute 0.1 0.0 - 0.1 x10(3)/ L [facility] Immature Gran % 1.10 % [facility] Comment: Immature granulocytes(IG's)percentage and absolute count will include metamyelocytes, myelocytes, and promyelocytes. Blood smears from CBCs yielding IG's will be scanned manually for concordance. If this scan disagrees with the automated IG or if promyelocytes are noted, a manual differential will be performed. Immature Gran Absolute 0.09(H) 0.00 - 0.04 x10(3)/ L [facility] Blood 06/09/2021 5:50 AM EDT 06/09/2021 6:06 AM EDT Narrative Resulting Agency Comment Spec In Lab Isaiah Hoyos MD HEMATOLOGY ORDERABL ES Performing Organization Address City/[facility]/ZIP Co de Phone Number [facility] [place] [address] * Hemogram (06/09/2021 5:50 AM EDT) White Blood Cell 8.2 4.0 - 9.5 x10(3)/[facility] LABORATORY Red Blood Cell 4.87 4.58 - 5.54 x10(6)/[facility] LABORATORY Hemoglobin 14.1 13.7 - 16.5 g/dL [facility] Hematocrit 42.0 40.5 - 48.5 % [facility] Mean Cell Volume 86.2 82.9 - 93.1 [facility] Mean Cell Hemoglobin 29.0 27.5 - 32.1 [facility] Mean Cell Hemoglobin Concentration 33.6 32.0 - 35.7 g/dL [facility] Platelet 240 145 - 357 x10(3)/[facility] LABORATORY RDW Standard Deviation 40.7 36.0 - 45.0 [facility] RDW coefficient of variation 12.9 11.4 - 13.8 % [facility] Mean Platelet Volume 10.9 7.6 - 12.9 [facility] NRBC% auto 0.0 % [facility] NRBC Absolute 0.000 0.000 - 0.000 x10(3)/[facility] LABORATORY Blood 06/09/2021 5:50 AM EDT 06/09/2021 6:06 AM EDT Narrative Resulting Agency Comment Spec In Lab Isaiah Hoyos MD HEMATOLOGY ORDERABL ES Performing Organization Address City/[facility]/ZIP Co de Phone Number [facility] [place] [address] * Troponin (06/09/2021 5:50 AM EDT) Pathologist [facility] Troponin-T <0.01 0.00 - 0.00 ng/mL [facility] Comment: The 99th percentile [...] ischemia ?? New or presumed new significant AZ-djkmtcw-H wave (ST-T) changes or new left bundle [...] additional sample may be indicated. Reference: Third Hastings Definition of Myocardial Infarction. Journal of the [place] [employer] 2012;60:1581-98 Blood 06/09/2021 5:50 AM EDT 06/09/2021 6:05 AM EDT Narrative Resulting Agency Comment Spec In Lab Isaiah Hoyos MD CHEMISTRY ORDERABLE S [facility] [place] [address] * Heparin (unfractionated) Level (06/09/2021 5:50 AM EDT) Pathologist [facility] UF Heparin 0.31 IU/mL [facility] Comment: Guidelines for [...] MD HEMATOLOGY ORDERABL ES Performing Organization Address [facility] de Phone Number [facility] [place] [address] * Blood culture (06/09/2021 5:50 AM EDT) Blood Culture No growth at 5 days. [facility] Blood ANTECUBITAL REGION STRUCTURE / Unknown 06/09/2021 5:50 AM EDT 06/09/2021 10:08 AM EDT Comment:#1 Narrative Resulting Agency Comment Spec In Lab Isaiah Hoyos MD MICROBIOLOGY - BLOO D ORDERABLES Performing Organization Address [facility] de Phone Number [facility] [place] [address] * Lipid Panel (Reflex Direct LDL) (06/09/2021 5:50 AM EDT) Cholesterol, Total 207 mg/dL [facility] Comment: Lower Risk: <200 mg/dL Average Risk: 200-239 mg/dL Higher Risk: >zd=929 mg/dL Triglyceride 235 mg/dL [facility] Comment: Average Risk/Lower Risk: <150 mg/dL Borderline High Risk: 150-199 mg/dL High Risk: 200-499 mg/dL Very High Risk: >fm=093 mg/dL HDL Cholesterol 29 mg/dL [facility] Comment: Males: ?? Higher Risk: <40 mg/dL Females: ?? Higher Risk: <50 mg/dL LDL Cholesterol 131 mg/dL [facility] Comment: Lowest Risk: <100 mg/dL Lower Risk: 100-129 mg/dL Borderline High Risk: 130-159 mg/dL High Risk: 160-189 mg/dL Very High Risk: >ik=147 mg/dL Cholesterol/HDL Ratio 7.1 ratio [facility] Lipid Interpretation See Note [facility] Comment: Lipid management should be guided by a patient? s ASCVD risk, goals and preferences. ACC/AHA Guidelines recommend high intensity statin if clinical ASCVD or LDL greater than or equal to 190 mg/dL. http://[employer].com/UIO-WDX-Wzqtipvas Adults aged 40-75 with LDL 70-189 mg/dL should have their 10 year ASCVD risk estimated with the ACC/AHA ASCVD risk mutuel cashier http://tools.acc.org/PDUCA-Lqmb-Ayiwzfubb/ Statin should be discussed if risk greater [...] Lab Isaiah Hoyos MD CHEMISTRY ORDERABLE S [facility] [place] [address] * COVID-19 PCR (06/09/2021 5:45 AM EDT) SARS-CoV-2 RNA (Rapid) Not Detected Not Detected [facility] Comment: This result should [...] using the Simplexa COVID-19 Direct Assay by [employer] as authorized by the FDA issued Emergency [...] Department of Pathology and Laboratory Medicine at [facility], certified under the Clinical Laboratory Improvement [...] fact sheets at the following FDA website: https://www.fda.gov/medical-devices/qkybkaxxswi-mllrawb-0326-cbeoo-36-tltsxhomh- use-a drzkwkfemweru-djgtugz-ljpcjya/ehepn-vmndxqqmjos-tarb SARS-CoV-2 Source [employer] MA R[facility] Nasopharyngeal Swab 06/09/20 5:45 AM EDT 06/10/2021 6:15 AM EDT Comment:Symptoms->Surveillan ce Narrative Resulting Agency Comment Spec In Lab Isaiah Hoyos MD MICROBIOLOGY - GENE RAL ORDERABLES Performing Organization Address [facility]/ZIP Co de Phone Number [facility] [place] [address] * (ABNORMAL) POCT Glucose (06/09/2021 4:20 AM EDT) Glucose, POC 224(H) 65 - 199 mg/dL [facility] Comment: Supplemental ranges: <140 mg/dL before meals <180 mg/dL all other times of the day Blood 06/09/2021 4:20 AM EDT 06/09/2021 4:20 AM EDT Supa Alegria MD POINT OF CARE TEST O RDERABLES Performing Organization Address [facility] Co de Phone Number [facility] [place] [address] * (ABNORMAL) POCT Glucose (06/09/2021 12:35 AM EDT) Glucose, POC 346(H) 65 - 199 mg/dL [facility] Comment: Supplemental ranges: <140 mg/dL before meals <180 mg/dL all other times of the day Blood 06/09/2021 12:3 5 AM EDT 06/09/2021 12:35 AM EDT Zuleyka Hodgson MD POINT OF CARE T EST ORDERABLES Performing Organization Address City/[facility]/ZIP Co de Phone Number [facility] [place] [address] * Heparin (unfractionated) Level (2021 10:41 PM EDT) [facility] UF Heparin 0.26 IU/mL [facility] Comment: Guidelines for [...] Lab Isaiah Hoyos MD HEMATOLOGY ORDERABL ES [facility] [place] [address] * EKG 12 Lead (2021 8:46 PM EDT) [facility] Ventricular rate 69 BPM MUSE SYSTEM Atrial Rate 69 BPM MUSE SYSTEM P-R Interval 148 ms MUSE SYSTEM QRS Duration 84 ms MUSE SYSTEM Q-T Interval 384 ms MUSE SYSTEM QTC Calculated (Bezet) 411 ms MUSE SYSTEM Calculated P Tionesta 39 degrees MUSE SYSTEM Calculated R Tionesta 14 degrees MUSE SYSTEM Calculated T Tionesta 21 degrees MUSE SYSTEM INTERPRETATION Normal sinus [...] Blood Culture No growth at 5 days. [facility] Blood 2021 8:26 PM EDT 2021 8:57 PM EDT Narrative Resulting Agency Comment Spec In Lab Isaiah Hoyos MD MICROBIOLOGY - BLOO D ORDERABLES Performing Organization Address City/[facility] Co de Phone Number [facility] [place] [address] * Troponin (2021 7:31 PM EDT) Troponin-T <0.01 0.00 - 0.00 ng/mL [facility] Comment: The 99th percentile [...] ischemia ?? New or presumed new significant FU-asvqjgn-V wave (ST-T) changes or new left bundle [...] additional sample may be indicated. Reference: Third Hastings Definition of Myocardial Infarction. Journal of the [place] [employer] 2012;60:1581-98 Blood 2021 7:31 PM EDT 2021 7:37 PM EDT Narrative Resulting Agency Comment Spec In Lab Isaiah Hoyos MD CHEMISTRY ORDERABLE S [facility] [place] [address] * (ABNORMAL) Differential, Automated (2021 7:31 PM EDT) Neutrophil % 53.6 % [facility] Neutrophil Absolute 4.36 1.70 - 6.10 x10(3)/mc L [facility] Lymph % 28.5 % [facility] Lymphocytes Abs 2.3 0.9 - 3.2 x10(3)/mc L [facility] Monocyte % 10.8 % [facility] Monocyte Abs 0.9 0.3 - 0.9 x10(3)/mc L [facility] Eos % 5.4 % [facility] Eosinophils Abs 0.4 0.0 - 0.4 x10(3)/mc L [facility] Basophil % 1.0 % [facility] Baso Absolute 0.1 0.0 - 0.1 x10(3)/mc L [facility] Immature Gran % 0.70 % [facility] Comment: Immature granulocytes(IG's)percentage and absolute count will include metamyelocytes, myelocytes, and promyelocytes. Blood smears from CBCs yielding IG's will be scanned manually for concordance. If this scan disagrees with the automated IG or if promyelocytes are noted, a manual differential will be performed. Immature Gran Absolute 0.06(H) 0.00 - 0.04 x10(3)/mc L [facility] Blood 2021 7:31 PM EDT 2021 7:37 PM EDT Narrative Resulting Agency Comment Spec In Lab Isaiah Hoyos MD HEMATOLOGY ORDERABL ES Performing Organization Address City/[facility]/ZIP Co de Phone Number [facility] [place] [address] * (ABNORMAL) Hemogram (2021 7:31 PM EDT) White Blood Cell 8.1 4.0 - 9.5 x10(3)/mc L [facility] Red Blood Cell 4.65 4.58 - 5.54 x10(6)/mc L [facility] Hemoglobin 13.5(L) 13.7 - 16.5 g/dL [facility] Hematocrit 39.4(L) 40.5 - 48.5 % [facility] Mean Cell Volume 84.7 82.9 - 93.1 fL [facility] Mean Cell Hemoglobin 29.0 27.5 - 32.1 pg [facility] Mean Cell Hemoglobin Concentration 34.3 32.0 - 35.7 g/dL [facility] Platelet 219 145 - 357 x10(3)/ L [facility] RDW Standard Deviation 39.9 36.0 - 45.0 [facility] RDW coefficient of variation 13.1 11.4 - 13.8 % [facility] Mean Platelet Volume 10.5 7.6 - 12.9 [facility] NRBC% auto 0.0 % [facility] NRBC Absolute 0.000 0.000 - 0.000 x10(3)/ L [facility] Blood 2021 7:31 PM EDT 2021 7:37 PM EDT Narrative Resulting Agency Comment Spec In Lab Isaiah Hoyos MD HEMATOLOGY ORDERABL ES [facility] [place] [address] * (ABNORMAL) Basic Metabolic Panel (non-fasting) (2021 7:31 PM EDT) Glucose 244(H) 65 - 199 mg/dL [facility] Comment:Diabetes: >=200 mg/d L plus symptoms Blood Urea Nitrogen 12 10 - 20 mg/dL [facility] Creatinine 0.73(L) 0.80 - 1.50 mg/dL [facility] Sodium 133(L) 135 - 145 mmol/L [facility] Potassium 4.0 3.5 - 5.0 mmol/L [facility] Comment: Please note: ??Patients with WBC >100,000 may have falsely elevated Potassium levels. ??For accurate Potassium quantification in these patients send serum separator tube (gold top) for subsequent determinations. ??Contact the Clinical Chemistry Laboratory if there are any questions. Chloride 100 98 - 107 mmol/L [facility] Carbon Dioxide 22 22 - 31 mmol/L [facility] Anion Gap 11 5 - 15 mmol/L [facility] Calcium 9.3 8.5 - 10.5 mg/dL [facility] Est Glomerular Filtration Rate 105 >=60 mL/min/1. 73 m?? [facility] Comment: This patient? s [...] Lab Isaiah Hoyos MD CHEMISTRY ORDERABLE S [facility] [place] [address] documented in this encounter Visit Diagnoses Diagnosis Unstable angina- Primary Intermediate coronary syndrome Chest pain, unspecified type Smoker Tobacco use disorder CAD (coronary artery disease) Coronary atherosclerosis of unspecified type of vessel, chilkat or graft Chest pain Chest pain, unspecified [...] on Thu06/10/21 at 1700, Until Discontinued, Routine Given 06/10/2021 [...] area)1224 (MAR Unhold - Provider: Admin Adt) cephALEXin (Keflex) [...] mg, Oral, EVERY MORNING, First dose on 10/17/21 at 0600, Until Discontinued, DO NOT CRUSH OR OPEN, Routine 0652 (Given - Provider: Arturo Morris RN) 0538 (Given - Provider: Emily Olmedo RN)1041 ([facility] Hold - Provider: Admin Adt - Reason: Transfer to a Procedural area)1224 ([facility] Unhold - Provider: Admin Adt) losartan (Cozaar) tablet 12.5 mg 12.5 mg, Oral, DAILY, First dose on 06/09/21 at 0900, Until Discontinued, Routine 0837 (Given - Provider: Fabienne Morelos RN) 0932 (Given - Provider: Fabienne Morelos RN)1041 ([facility] Hold - Provider: Admin Adt - Reason: Transfer to a Procedural area)1224 ([facility] Unhold - Provider: Admin Adt) metoprolol succinate XL (Toprol-XL) tablet 100 mg 100 mg, Oral, DAILY, First dose on 06/09/21 at 0900, Until Discontinued, DO NOT CRUSH OR OPEN, Routine 0837 (Given - Provider: Fabienne Morelos RN) 0932 (Given - Provider: Fabienne Morelos RN)1041 ([facility] Hold - Provider: Admin Adt - Reason: Transfer to a Procedural area)1224 ([facility] Unhold - Provider: Admin Adt) ondansetron (pf) [...] - Reason: Transfer to a Procedural area)1224 ([facility] Unhold - Provider: Admin Adt) piperacillin-tazobactam (Zosyn) [...] RN)0938 (Stopped - Provider: Fabienne Morelos RN)1041 ([facility] Hold - Provider: Admin Adt - Reason: Transfer to a Procedural area)1224 ([facility] Unhold - Provider: Admin Adt)1238 (New Bag - Provider: Fabienne Morelos RN)1638 (Stopped - Provider: Fabienne Morelos RN) pramipexole (Mirapex) tablet 0.5 mg 0.5 mg, Oral, NIGHTLY, First dose on 06/08/21 at 2115, Until Discontinued, Routine 214 (Given - Provider: Arturo Morris RN) 2023 (Given - Provider: Emily Olmedo RN) 1041 ([facility] Hold - Provider: Admin Adt - Reason: Transfer to a Procedural area)1224 ([facility] Unhold - Provider: Admin Adt) ranolazine [...] - Reason: Transfer to a Procedural area)1224 ([facility] Unhold - Provider: Admin Adt)1633 (Given [...] met) 0946 (Given - Provider: Fabienne Morelos RN)104 ([facility] Hold - Provider: Admin Adt - Reason: Transfer to a Procedural area)1224 ([facility] Unhold - Provider: Admin Adt) topiramate (Topamax) tablet 50 mg 50 mg, Oral, NIGHTLY, First dose on 06/08/21 at 2115, Until Discontinued, Routine 214 (Given - Provider: Arturo Morris RN) 202 (Given - Provider: Emily Olmedo RN) 1041 ([facility] Hold - [...] - Reason: Transfer to a Procedural area)1224 ([facility] Unhold - Provider: Admin Adt) Continuous Medication [...] Morelos RN) 1041 (OCT Hold - Provider: Augustine Adt - Reason: Transfer to a Procedural [...] Jose Damon MD - Comment: Contrast in Medical Apparatus Model Maker) lidocaine (Xylocaine) 1% (10 mg/mL) injection 3 mg 3 mg (0.3 mL), Subcutaneous, ONCE PRN, 1 dose, Starting on 06/08/21 at 1909, Until Thu06/10/21 at 2028, for discomfort with PIV insertion, Routine 1041 ([facility] Hold - Pro vider: Admin Adt - Reason: Transfer to a Procedural area)1224 ([facility] Unhold - Provider: Admin Adt) lidocaine [...] - Reason: Transfer to a Procedural area)1224 ([facility] Unhold - Provider: Admin Adt) nitroGLYcerin [...] Prov ider: Naye Song RN - Comment: Medical Apparatus Model Maker Flush Line) verapamiL (Isoptin) (2.5 mg/mL) injection [...] CONTINUOUS, Starting on 06/08/21 at 2100, Until Thu06/10/21 at 1148, BEGIN infusion at 1,000 units [...] Routine documented in this encounter Care Teams Survey Superintendent Relationship Specialty Start Date End Date Coni Lim MD [address] [place] [address] PCP - General 07/16/10 documented as of this encounter
--- OUTSIDE RECORDS SUMMARY | 2024-08-05 17:19 | XMS_ITS | Encounter Summary ---
Author Organization [facility] Address [facility] [place] [address] Care Team Providers Care Selling Underwriter Name Role Phone Coni Lim MD Primary Care Provider [phone] Encounter Details Date Type Department Care Team (Late st Contact Info) Description 06/07/2021 Telephone Cardiology at [address] [address] Coni Wilson PA [facility] [place] [address] Social History Tobacco Use Types Packs/Day Years [...] Referring Provider: Maria Luisa GROVER Patient Location: 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 ER provider spoke with local precision assembly inspector (Dr. Gutierrez) who recommended speaking with for transfer for [facility]. Vital Signs: HR 80s, SBP 110s [...] angina. Troponin negative x1. EKG nonischemic. OSH precision assembly inspector recommended transfer for C. Loaded with ASA [...] examined this patient. I encouraged Maria Luisa GROVRE to contact us if there is any change in symptoms, decision-making, orfurther need for guidance in management. Coni Lew PA-C Cardiovascular Medicine Pager [phone] 06/07/2021 documented in this encounter Plan of Treatment Not on file documented as of this encounter Visit Diagnoses Not on filedocumented in this encounter Care Teams Selling Underwriter Relationship Specialty Start Date End Date Coni Lim MD [address] [place] [address] PCP - General 07/16/10 documented as of this encounter
--- OUTSIDE RECORDS SUMMARY | 2024-08-05 17:19 | XMS_ITS | Encounter Summary ---
Author Organization [facility] [place] [address] Care Team Providers Care Pharmacoepidemiologist Name Role Phone Coni Lim MD Primary Care Provider Encounter Details Date Type Department Care Team (Late st Contact Info) Description 05/24/2020 Telephone [place] [address] Keeley Paredes MD [facility] [place] [address] Social History Tobacco Use Types Packs/Day Years [...] on filedocumented in this encounter Care Teams Pharmacoepidemiologist Relationship Specialty Start Date End Date Coni Lim MD [address] [place] [address] PCP - General 07/16/10 documented as of this encounter
--- OUTSIDE RECORDS SUMMARY | 2024-08-05 17:19 | XMS_ITS | Encounter Summary ---
Author Organization [facility] Address [facility] [place] [address] Care Team Providers Care Run Lead Name Role Phone Coni Lim MD Primary Care Provider [phone] Reason for Visit * Reason Onset Date Comments Procedure 05/24/2020 Encounter Details Date Type Department Care Team (Latest Contact Info) Description 05/24/2020 11:15 AM EDT Procedure [place] [address] Keeley Paredes MD [facility] [place] [address] Conjunctival lesion Social History Tobacco Use Types [...] encounter Patient Instructions * Patient Instructions* Keeley aPredes MD - 05/24/2020 11:15 AM EDT - [...] Please see procedure note for details. Keeley Pardees MD documented in this encounter Plan of [...] AM EDT 05/24/2020 11:19 AM EDT Narrative [facility] - 05/24/2020 11:19 AM EDT Specimen requisition ordered. ??Separate Pathology report to follow Keeley Paredes MD PATHOLOGY/CYTOLOGY O RDERABLES [facility] [place] [address] * Surgical Pathology Report (05/24/2020 11:09 AM EDT) Final Diagnosis [id number] ? Location: The signing pathologist has (i) examined the relevant preparation(s) for the specimen(s) and (ii) rendered or confirmed the diagnosis(es). . ?Surgical Pathology DIAGNOSIS A - Eye, right caruncle cystic lesion, biopsy: Dermoid cyst. Electronically signed by: ??Wendy Oneill MD Verified: ??05/30/2020 ?Pathologist Performed at: ??-[facility] [place] [place], [place], [place] DISCUSSION Multiple deeper levels were examined. SPECIMEN(S) SUBMITTED A - right caruncle cystic lesion, biopsy (1) CLINICAL INFORMATION Right caruncle cystic lesion x1 year, irritating SPECIMEN PROCESSING A - Labeled/Fixativ e: Right eye, formalin. Quantity/Size: Two, 0.2 and 0.4 cm. Tissue Description: Soft, rubbery, yellow-walters tissues. Sections/Proces sing: Submitted en toto ??in 1 cassette labeled A1. ??shb 05/30/2020 3:05 PM EDT [facility] BIOPSY SPECIMEN / Unknown 05/24/2020 11:09 AM EDT 05/24/2020 11:09 AM EDT Keeley Paredes MD PATHOLOGY/CYTOLOGY O RDERABLES [facility] [place] [address] documented in this encounter Visit Diagnoses Diagnosis Conjunctival lesion Unspecified disorder of conjunctiva documented in this encounter Care Teams Run Lead Relationship Specialty Start Date End Date Coni Lim MD [address] [place] [address] PCP - General 07/16/10 documented as of this encounter
--- OUTSIDE RECORDS SUMMARY | 2024-08-05 17:19 | XMS_ITS | Encounter Summary ---
Author Organization [facility] [place] [address] Care Team Providers Care Host/Hostess Ground Name Role Phone Coni Lim MD Primary Care Provider Encounter Details Date Type Department Care Team (Late st Contact Info) Description 11/25/2021 Telephone Cardiology at [address] [address] Yessy Pugh Social History Tobacco Use Types [...] they received the ABSORB stent. Certified mail #[id number] documented in this encounter Plan of Treatment Not on file documented as of this encounter Visit Diagnoses Not on filedocumented in this encounter Care Teams Host/Hostess Ground Relationship Specialty Start Date End Date Coni Lim MD [address] [place] [address] PCP - General 07/16/10 documented as of this encounter
--- OUTSIDE RECORDS SUMMARY | 2024-08-05 17:19 | XMS_ITS | Encounter Summary ---
Author Organization [facility] Address [facility] [place] [address] Care Team Providers Care Machine Installer Name Role Phone Coni Lim MD Primary Care Provider [phone] Encounter Details Date Type Department Care Team (Late st Contact Info) Description 09/28/2019 [place] [address] Keeley Paredes MD [facility] [place] [address] Social History Tobacco Use Types Packs/Day Years [...] PM EST Received referral for patient. Dr. aPredes would like to have him in for MSO in 1-3 months. I have called and left message for patient to call to schedule with Dr. Paredes. documented in this encounter Plan of Treatment Not on file documented as of this encounter Visit Diagnoses Not on filedocumented in this encounter Care Teams Machine Installer Relationship Specialty Start Date End Date Coni Lim MD [address] [place] [address] PCP - General 07/16/10 documented as of this encounter
--- OUTSIDE RECORDS SUMMARY | 2024-08-05 17:19 | XMS_ITS | Encounter Summary ---
Author Organization [facility] Address [facility] [place] [address] Care Team Providers Care Art Objects Repairer Name Role Phone Coni Lim MD Primary Care Provider [phone] Encounter Details Date Type Department Care Team (Late st Contact Info) Description 04/07/2023 7:30 PM EDT Ancillary Procedure Radiology Library at [facility] [place] [place] [address] Patel Griggs MD [facility] [place] [address] Social History Tobacco Use Types Packs/Day Years [...] And Spine (04/07/2023 7:22 PM EDT) Narrative [facility] - 04/07/2023 7:22 PM EDT This exam is auto-finalizing. It's purpose is for storage only. Patel Griggs MD [facility] FILM LIBRARY ORD ERABLES [facility] [place], [place] documented in this encounter Visit Diagnoses Not on filedocumented in this encounter Care Teams Art Objects Repairer Relationship Specialty Start Date End Date Coni Lim MD [address] [place] [address] PCP - General 07/16/10 documented as of this encounter
--- OUTSIDE RECORDS SUMMARY | 2024-08-05 17:19 | XMS_ITS | Encounter Summary ---
Author Organization [facility] Address [facility] [place] [address] Care Team Providers Care Mechanical Designer Name Role Phone Coni Lim MD Primary Care Provider [phone] Reason for Visit * Auth/Cert Specialty Diagnoses / Procedures Referred By Ruby garvin Referred To Contact Diagnoses Unstable angina Chest pain Procedures EMERGENCY IPI Referral ID Status Reason Start Date Expiration Date Visits Re quested Visits Authorized [id number] 1 1 Encounter Details Date Type Department Care Team (Late st Contact Info) Description 06/10/2021 9:00 AM EDT - 06/10/2021 10:00 AM EDT Surgery [place] [id number] Jose Trimble MD [facility] [place] [address] CARDIAC CATHETERIZATION Social History Tobacco Use Types [...] Romeo Coelho Patient Age: 56 y.o. Language: Kazakh Race: White Ethnicity: Not nor Admit date: 2021 Discharge date and time: 06/10/2021 5:40 PM Attending Physician: Supa Alegria MD Discharge Physician: Supa Alegria MD Follow-up Recommendations for Providers: Romeo Coelho is a 56 year old male admitted for chest pain concerning for unstable angina. 1. ASCVD / Microvascular angina: [facility] 06/10/21 without obstructive CAD and with [...] Escobar APRN Sarah Hansen, PA-C Cardiovascular Medicine [phone] Discharge Diagnoses (Hospital Problems) and Secondary Diagnoses (Chronic Problems): Active Hospital Problems Diagnosis ??? Unstable angina ??? Chest pain ??? Smoker ??? CAD (coronary artery disease) ??? Dyslipidemia ??? HTN (hypertension) ??? DM (diabetes mellitus) Resolved Hospital Problems No resolved problems to display. Active Non-Hospital Problems Diagnosis ??? Hx-TIA (transient ischemic attack) ??? GERD (gastroesophageal reflux disease) ??? Conjunctival lesion Operations/Major Procedures: [facility] 06/10/21 Hemodynamics: Left Heart Pressures Resting: [...] 2011, LAD stent in 2012, RCA stent [id number]. His most recent coronary angiogram (2019) showed [...] since 2011 and last JACINDA to RCA [id number]. Last [facility] 2018 with residual ~40% LAD and [...] SOB prior to discharge. Follow up with amusement machine mechanic, Dr. Gutierrez, was arranged. ?? Right??groin cellulitis, abscess with spontaneous drainage Patient noted to have right groin erythema consistent with cellulitis. He remained afebrile and without leukocytosis. Blood cultures obtained at OSH were NGTD at 2 days (spoke with microbiology at [facility] on 06/10/21). These were repeated at [...] CTA chest was made. ?? Diabetes mellitus, kjt-mtzeogk-ssitrhveh, uncontrolled A1c of 9.4%. Home metformin held for cath. Additional coverage with sliding scale and meal associated insulin. Hold metformin for 48 hours after contrast exposure. Diabetes management team consulted.Recommendations to continue metformin 1000mg BID and further management per PCP. Could consider SGLT2i. ?? HTN BP trend 12 hours prior to discharge were BP: (102-134)/(65-81) . He was continued on home fxcihroy25.5mg daily, metoprolol succinate 100mg daily and Imdur [...] Studies and Lab Data: Blood cultures at [facility] and [facility]. Discharge Conditions/Prognosis: Alert and oriented x 3, ambulatory-independent. Ambulated without chest pain or SOB prior to discharge. Discharge to: Home. Updated Allergies/ADRs: Allergies Allergen Reactions ??? Thallium-201 Severe cardiac event ??? Lisinopril Other (See Comments) cough ??? Paper Tape [Adhesive Tape] Rash Immunizations Given this Hospitalization: Immunization History Administered Date(s) Administered ??? Influenza PF, Split 07/30/2013 ??? Influenza Vaccine (Novel) [id number], Injectable 05/24/2009 ??? Influenza Vaccine w/Preservative, Split [...] of 8AM-5PM please call the Cardiology Clinic [phone] to speak with a nurse. All other hours please call the Hospital Drier Operator [phone] and ask to speak to the car sealer on-call. Return to work: One week Driving: [...] Time PCP COLEEN Wen [address] [place] [address] Jun 20 10:00am Magnetic Doctor Dr. Gutierrez [facility] Cardiology [phone] ThursdayJul 23 11:40am Discharge References/Attachments Angina (Kazakh) Discussed with MD Coni Escobar PA-C Pager #[phone] 06/10/2021 documented in this encounter Discharge Instructions [...] of 8AM-5PM please call the Cardiology Clinic [phone] to speak with a nurse. All other hours please call the Hospital Drier Operator [phone] and ask to speak to the car sealer on-call. Return to work: One week Driving: [...] Time PCP COLEEN Wen [address] [place] [address] Jun 20 10:00am Magnetic Doctor Dr. Gutierrez [facility] Cardiology [phone] ThursdayJul 23 11:40am * Patient Instructions* Coni Lew PA - 06/10/2021 3:07 PM EDT * Attachments The following attachments cannot be sent through Care Everywhere. * Angina (Kazakh) documented in this encounter Medications at Time [...] MOUTH EVERY 4 TO 6 HOURS 05/18/2020 Crispy Gameruch Verio test strips Strip USE ONE STRIP [...] Transport initiated/not confirmed: Spoke with NOELLE from [facility] who initiated a ride with their scheduling department/dispatch to pick patient up at discharge 06/10/21 from the MAIN entrance at ~18:00 en route to HOME UPDATE 16:06 Discharge Transportation confirmed: Spoke with ELMIRA from [facility] who confirmed a emt driver provided by transportation managerULISES will arrive to pick patient up at discharge 06/10/21 from the MAIN entrance at 18:00 en route to HOME. Bedside nurse notified via eDH chat. [facility] PHONE: [phone] * Supa Alegria MD - 06/10/2021 8:04 AM EDT Images from the original note were not included. Inpatient Cardiology Progress Note Patient Name: Romeo Coelho Service: SCREW MACHINE ADJUSTER AUTOMATIC / PA Responsible Attending: Supa Alegria MD [...] since 2011 and last JACINDA to RCA [id number]. Last [facility] 2019 with residual ~40% LAD [...] chest at this time ?? Diabetes mellitus, xdr-xvonkih-gdsrmeudb, uncontrolled A1c of 9.4% Hold home metformin [...] Discussed with MD Coni Escobar PA-C Pager #[phone] 06/10/2021 Cardiology Attending Note I have seen and examined the patient. I agree with the findings above. Of note, he is feeling well today. His groin site shows no evidence of fluid collection. Blood cultures show no growth. We will proceed with coronary angiography and possible PCI Supa Alegria MD [facility] Total time spent on review of [...] Progress Note Patient Name: Romeo Coelho Service: SCREW MACHINE ADJUSTER AUTOMATIC / PA Responsible Attending: Supa Alegria MD Reason for continued hospitalization: Evaluation and management of unstable angina- cath Right groin cellulitis-IV abx Medication adjustment Active Problems: Active Hospital Problems Diagnosis ??? Unstable angina ??? Chest pain ??? Smoker ??? CAD (coronary artery disease) -Coronary Angio 07/29/2013: 65% (FFR 0.74) mid LAD lesion s/p PCI with 3.5 X 18 mm JACINDA - [facility] 2009 post abnormal nuc stress +IW, [...] CTA at this time ?? Diabetes mellitus, bpp-yozqxks-lrilnpczt Poor control with A1c of 9.4 Carb [...] ?Routine Diet: Daily Healthy Menu Choices/Cardiac diet ([facility]-Diet) CHO counting level 2 DVT Prophylaxis: already [...] proceed tomorrow on antibiotics. Supa Alegria MD [facility] Total time spent on review of [...] PCP: Coni Lim MD PCP phone number: [phone] Date of Admission: 2021 ( Hospital Day 0 days ) Attending:Zuleyka Hodgson MD Patient Active Problem List Diagnosis ??? ','Unstable angina ??? Chest pain ??? Smoker ??? CAD (coronary artery disease) Overview Note: -Coronary Angio 07/29/2013: 65% (FFR 0.74) mid LAD lesion s/p PCI with 3.5 X 18 mm JACINDA - [facility] 2009 post abnormal nuc stress +IW, [...] Myocardial Infarction Father 46 [place], CABG ??? Heart Disease Father ??? Diabetes [...] Lives with and daughter at home in [place], [place]. He is disabled now. He used [...] in the last 7068 hours. Invalid input(s): DRDEXNIKXGR9H No results for input(s): POCGLU in the last 168 hours. Heme No results for input(s): LDH, HAPTOGLOBIN, URICACID in the last 168 hours. ABG (Arterial Blood Gas) No results found for: PHART, PO2ART, IGC7UKL, IFI4WTG Microbiology: Microbiology Results (Last 30 days) No [...] (porcine) AND heparin (porcine) infusion Recent diagnostics: [facility] (2019): Left Main The left main [...] Obtain Echo - Serial cardiac enzymes - environmental monitoring specialist - Cardiac cath in a.m. - Check [...] infection. No hypoxia or tachycardia #Diabetes mellitus, pad-mbqnpgj-efjyacvzo, poor control with A1c of 9.4 -Diabetic [...] #Routine Diet: Daily Healthy Menu Choices/Cardiac diet ([facility]-Diet) 75/75/90 CHO counting level 3 DVT Prophylaxis: already on heparin drip Code Status: Attempt Cardiopulmonary Resuscitation - Inpatient Dispo: Pending clinical course Isaiah Hoyos MD Pager #[phone] 06/08/21 8:56 PM documented in this encounter [...] cath without complications. Coni Lew PA-C Pager #[phone] 06/10/2021 * Initial Assessments - Ruthie Macias RN - 06/10/2021 3:39 PM EDT Office of Care Management Initial Assessment Ruthie Macias RN reviewed record and discussed patient with Care Team. Source of Information: Team, bedside nurse, medical record, and Patient Introduced self/reviewed role; services accepted. Reason for Hospitalization: unstable angina Last COVID test: Lab Results Component Value Date [id number] Not Detected 06/09/2021 Past medical History: Past [...] would be surrogate decision maker per [place] surrogatedecision making law. (Only good for 180 days) Any patient receiving care at [facility] must abide by [place] law. The hierarchy for surrogate decision making [...] (i) The agent with financial power of air and water filler or a conservator appointed in accordance with [...] - straight Home Address confirmed as: [address] [place] [address] Social & Family Supports: All names listed below confirmed with patient as current and correct Extended Emergency Contact Information Primary Emergency Contact: Dasia Coelho Address: [address] [place] [id number] [place] [address] of [facility] Mobile Relation: Spouse Current Care Provided by: [...] MEDICAID [place] Prescription Coverage: Yes Preferred Pharmacy: [id number] - [facility], [place] - [address] [facility] [address] [place] [address] [place] Status: Patient is a : No Primary Care Provider: Coni Lim MD [phone] Patient/Caregiver Goals of Treatment: dc to home [...] ambulation, driving. He drove his car to [facility] and then required a BLS to transport here to [facility]. He will require assistance in finding A ride to home when he is dced. Pt has supports in place to accessthe necessary care and or follow up after dishcharge and there are no RN CM or STUDIO DIRECTOR needs that are identified at this time Plan: dc to home A member of the Care Management team will continue to monitor progress, follow for continuity of care and assist with transition of care planning. Ruthie Macias RN CM Ext [phone] Pager [phone] * Consult Note - Elena Zaragoza APRN [...] management and to provide a review of long goods drier diabetes care. Diabetes History: Romeo Coelho has had diabetes for about 8 years. He was diagnosed during routine blood testing by his PCP. Denies having any symptoms at time of diagnosis. He takes metformin only, hasn't discussed additional medications with PCP previously as historically A1c has been 6-7. Lives in [facility] with Dasia. States the last few months [...] Myocardial Infarction Father 46 [place], CABG ??? Heart Disease Father ??? Diabetes [...] 10 gm carb ratio for each meal) prison diabetes care: Medications - Outpatient treatment regimen recommendations pending based on the hospital course. Monitoring - continue BG tid ac & hs Diet - low fat/low carb diet Exercise - weight-bearing exercise 30 min/day, as tolerated Thank you for allowing us to provide care for your patient Elena Nik [facility] Endocr[facility] Pager [phone] 70 minutes of this 80 minute visit was spent with the patient in counseling on diabetes and treatment plan, reviewing all glucose and insulin data as well as relevant laboratory results with the patient, and coordination of care on the inpatient unit * Brief Op Note - Jose Trimble MD - 06/10/2021 11:37 AM EDT Brief Operative Note Patient Name: Romeo Coelho : [id number] MR#: [id number] Case Date: 06/10/2021 Magnetic Doctor: * Jose Trimble MD - Primary * Syed Solorio MD - Fellow Preoperative diagnosis: nstemi Postoperative diagnosis:NSTEMI with stable coronary anatomy Preliminary Cardiac Catheterization Procedure Note: Procedure(s) performed: Coronary Angiography, Left Heart Cath Baseline Frailty Assessment: Definitions from [place] Study of Health and Aging Clinical Frailty [...] Full report to follow. JOSE TRIMBLE MD tromper Pager [phone] * Plan of Care - Fabienne Morelos RN - 06/09/2021 2:57 PM EDT OUTCOME EVALUATION NOTE: OUTCOME SUMMARY: A/O x4. VSS on RA. NSR on tele. Heparin gtt maintained per protocol.IV zosyn and vanc given per protocol. (see MAR). BG elevated, MD notified, insulin scale adjusted. 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 Kenefic very nauseous after he went to the [...] further details. Isaiah Hoyos MD 2021 Pager [phone] documented in this encounter Plan of Treatment [...] 06/09/2021 5:50 AM EDT RAPID COVID-19 PCR ([facility]) Routine 06/09/2021 5:45 AM EDT [...] * POCT Glucose (06/10/2021 4:20 PM EDT) [facility] Signature Glucose, POC 177 65 - 199 mg/dL [facility] Comment: Supplemental ranges: <140 mg/dL before meals <180 mg/dL all other times of the day Blood 06/10/2021 4:20 PM EDT 06/10/2021 4:20 PM EDT Supa Alegria MD POINT OF CARE TEST O RDERABLES [facility] [place] [address] * Troponin (06/10/2021 1:07 PM EDT) Troponin-T <0.01 0.00 - 0.00 ng/mL [facility] Comment: The 99th percentile for Troponin T is less than 0.01 ng/mL, any detectable cTnT concentration using this assay should be considered elevated. According to the third universal definition of myocardial infarction the following criteria with a clinical presentation consistent with acute myocardial ischemia meets the diagnosis for a myocardial infarction ([place]). Detection of a rise and/or fall of cTnT, with at least one value greater than the 99th percentile (> or = 0.01) and with at least one of the following ?? Symptoms of ischemia ?? New or presumed new significant JE-tratlld-N wave (ST-T) changes or new left bundle [...] additional sample may be indicated. Reference: Third [place] Definition of Myocardial Infarction. Journal of the [place] College of Cardiology 2012;60:1581-98 Blood 06/10/2021 1:07 PM EDT 06/10/2021 1:18 PM EDT Narrative Resulting Agency Comment Spec In Lab Isaiah Hoyos MD CHEMISTRY ORDERABLE S [facility] [place] [address] * POCT Glucose (06/10/2021 11:58 AM EDT) Glucose, POC 175 65 - 199 mg/dL [facility] Comment: Supplemental ranges: <140 mg/dL before meals <180 mg/dL all other times of the day Blood 06/10/2021 11:5 8 AM EDT 06/10/2021 11:58 AM EDT Supa Alegria MD POINT OF CARE TEST O RDERABLES [facility] [place] [address] * CARDIAC CATHETERIZATION (06/10/2021 11:45 AM EDT) Anatomical Region Laterality Modality Other Narrative 06/10/2021 12:54 PM EDT ?[facility] ? Cardiac Catheterization/Intervention Report ? Patient Name: Coelho, Romeo A. ? Procedure Date: 06/10/2021 ? A #: [id number] ? Primary Physician: Jose Trimble V ? Case #: [id number] ? File Name: [id number] ? Catheterization Order Number: [id number] ? [facility] ? Final Report [place], [place] ? Patient Name: ? Romeo Coelho ? ID#: ?[id number] ? : ?1965 ? Procedure Date: ? [...] was ?designated as ASA Class II. [facility] clinical frailty scale is 2: Well. [...] procedure was Urgent. The indication for ?the poultry farm laborer visit is worsening angina. Chest pain [...] Procedure Note Jose Trimble MD - 06/10/[address] [facility] Cardiac Catheterization/Intervention Report Patient Name: Romeo CoelhoNatalie Procedure Date: 06/10/2021 A #: [id number] Primary Physician: Jose Trimble V Case #: [id number] File Name: [id number] Catheterization Order Number: [id number] [facility] FinalReport [place], [place] Patient Name: Romeo Coelho ID#:[id number] :1965 Procedure Date: June 10, 2021 Case [...] was designated as ASA Class II. The [facility] clinical frailty scale is 2:Well. Diagnostic [...] diagnostic procedure was Urgent. The indicationfor the poultry farm laborer visit is worsening angina. Chest pain [...] units of heparin were administered. A total ct816ab of Omnipaque were opened, 38cc of Omnipaque were administered arx50co of Omnipaque were wasted. Radiation: Fluoro time [...] * POCT Glucose (06/10/2021 7:59 AM EDT) [facility] Glucose, POC 191 65 - 199 mg/dL [facility] Comment: Supplemental ranges: <140 mg/dL before meals <180 mg/dL all other times of the day Blood 06/10/2021 7:59 AM EDT 06/10/2021 7:59 AM EDT Supa Alegria MD POINT OF CARE TEST O RDERABLES [facility] [place] [address] * (ABNORMAL) BMP w/fasting Glucose (06/10/2021 3:44 AM EDT) Glucose Fasting 195(H) 65 - 99 mg/dL [facility] Comment: ?Fasting* Glucose [...] of Diabetes Mellitus, Position Statement from the [place] Diabetes [employer]. ??Diabetes Care, Volume 33, Supplement 1, Aug 2009 Blood Urea Nitrogen 9(L) 10 - 20 mg/dL [facility] Creatinine 0.79(L) 0.80 - 1.50 mg/dL [facility] Sodium 134(L) 135 - 145 mmol/L [facility] Potassium 4.1 3.5 - 5.0 mmol/L [facility] Comment: Please note: ??Patients with WBC >100,000 may have falsely elevated Potassium levels. ??For accurate Potassium quantification in these patients send serum separator tube (gold top) for subsequent determinations. ??Contact the Clinical Chemistry Laboratory if there are any questions. Chloride 103 98 - 107 mmol/L [facility] Carbon Dioxide 18(L) 22 - 31 mmol/L [facility] Anion Gap 13 5 - 15 mmol/L [facility] Calcium 9.4 8.5 - 10.5 mg/dL [facility] Est Glomerular Filtration Rate 102 >=60 mL/min/1. 73 m?? [facility] Comment: This patient? [...] In Lab Coni GROVER CHEMISTRY ORDERABLE S [facility] [place] [address] * Troponin (06/10/2021 3:44 AM EDT) Troponin-T <0.01 0.00 - 0.00 ng/mL [facility] Comment: The 99th percentile for Troponin T is less than 0.01 ng/mL, any detectable cTnT concentration using this assay should be considered elevated. According to the third universal definition of myocardial infarction the following criteria with a clinical presentation consistent with acute myocardial ischemia meets the diagnosis for a myocardial infarction ([place]). Detection of a rise and/or fall of cTnT, with at least one value greater than the 99th percentile (> or = 0.01) and with at least one of the following ?? Symptoms of ischemia ?? New or presumed new significant RJ-dzmzfub-G wave (ST-T) changes or new left bundle [...] additional sample may be indicated. Reference: Third [place] Definition of Myocardial Infarction. Journal of the [place] College [employer]iology 2012;60:1581-98 Blood Venous Draw / Unknown 06/10/2021 3:44 AM EDT 06/10/2021 4:06 AM EDT Narrative Resulting Agency Comment Spec In Lab Isaiah Hoyos MD CHEMISTRY ORDERABLE S Performing Organization Address [facility]/ZIP Co de Phone Number [facility] [place] [address] * Green Tube HOLD (06/10/2021 3:44 AM EDT) Green Hold Sample in lab. [facility] Blood Venous Draw / Unknown 06/10/2021 3:44 AM EDT 06/10/2021 4:03 AM EDT Isaiah Hoyos MD CHEMISTRY ORDERABLE S Performing Organization Address [facility] Co de Phone Number [facility] [place] [address] * POCT Glucose (06/10/2021 3:44 AM EDT) Glucose, POC 191 65 - 199 mg/dL [facility] Comment: Supplemental ranges: <140 mg/dL before meals <180 mg/dL all other times of the day Blood 06/10/2021 3:44 AM EDT 06/10/2021 3:44 AM EDT Supa Alegria MD POINT OF CARE TEST O RDERABLES Performing Organization Address [facility] Co de Phone Number [facility] [place] [address] * Heparin (unfractionated) Level (06/10/2021 3:44 AM EDT) [facility] UF Heparin 0.38 IU/mL [facility] Comment: Guidelines for therapeutic [...] Lab Isaiah Hoyos MD HEMATOLOGY ORDERABL ES [facility] [place] [address] * (ABNORMAL) Differential, Automated (06/10/2021 3:44 AM EDT) [facility] Neutrophil % 55.0 % [facility] Neutrophil Absolute 4.98 1.70 - 6.10 x10(3)/mc L [facility] Lymph % 29.1 % [facility] Lymphocytes Abs 2.6 0.9 - 3.2 x10(3)/mc L [facility] Monocyte % 7.5 % [facility] Monocyte Abs 0.7 0.3 - 0.9 x10(3)/mc L [facility] Eos % 5.9 % [facility] Eosinophils Abs 0.5(H) 0.0 - 0.4 x10(3)/[facility] Basophil % 1.1 % [facility] Baso Absolute 0.1 0.0 - 0.1 x10(3)/[facility] Immature Gran % 1.40 % [facility] Comment: Immature granulocytes(IG's)percentage and absolute count will include metamyelocytes, myelocytes, and promyelocytes. Blood smears from CBCs yielding IG's will be scanned manually for concordance. If this scan disagrees with the automated IG or if promyelocytes are noted, a manual differential will be performed. Immature Gran Absolute 0.13(H) 0.00 - 0.04 x10(3)/[facility] Blood 06/10/2021 3:44 AM EDT 06/10/2021 4:03 AM EDT Narrative Resulting Agency Comment Spec In Lab Isaiah Hoyos MD HEMATOLOGY ORDERABL ES [facility] [place] [address] * Hemogram (06/10/2021 3:44 AM EDT) White Blood Cell 9.0 4.0 - 9.5 x10(3)/[facility] Red Blood Cell 4.97 4.58 - 5.54 x10(6)/[facility] Hemoglobin 14.2 13.7 - 16.5 g/dL [facility] Hematocrit 42.8 40.5 - 48.5 % [facility] Mean Cell Volume 86.1 82.9 - 93.1 fL [facility] Mean Cell Hemoglobin 28.6 27.5 - 32.1 pg [facility] Mean Cell Hemoglobin Concentration 33.2 32.0 - 35.7 g/dL [facility] Platelet 251 145 - 357 x10(3)/[facility] RDW Standard Deviation 40.5 36.0 - 45.0 [facility] LABORATORY RDW coefficient of variation 13.0 11.4 - 13.8 % [facility]AT[facility] Mean Platelet Volume 10.5 7.6 - 12.9 [facility] LABORATORY NRBC% auto 0.0 % [facility] LABORATORY NRBC Absolute 0.000 0.000 - 0.000 x10(3)/[facility] LABORATORY Blood 06/10/2021 3:44 AM EDT 06/10/2021 4:03 AM EDT Narrative Resulting Agency Comment Spec In Lab Isaiah Hoyos MD HEMATOLOGY ORDERABL ES Performing Organization Address [facility]ZIP Co de Phone Number [facility] [place] [address] * POCT Glucose (06/09/2021 11:57 PM EDT) Glucose, POC 147 65 - 199 mg/dL [facility] Comment: Supplemental ranges: <140 mg/dL before meals <180 mg/dL all other times of the day Blood 06/09/2021 11:5 7 PM EDT 06/09/2021 11:57 PM EDT Supa Alegria MD POINT OF CARE TEST O RDERABLES Performing Organization Address [facility]/ZIP Co de Phone Number [facility] [place] [address] * POCT Glucose (06/09/2021 8:06 PM EDT) Glucose, POC 193 65 - 199 mg/dL [facility] Comment: Supplemental ranges: <140 mg/dL before meals <180 mg/dL all other times of the day Blood 06/09/2021 8:06 PM EDT 06/09/2021 8:06 PM EDT Supa Alegria MD POINT OF CARE TEST O RDERABLES [facility] [place] [address] * Troponin (06/09/2021 5:47 PM EDT) Troponin-T <0.01 0.00 - 0.00 ng/mL [facility] Comment: The 99th percentile for Troponin T is less than 0.01 ng/mL, any detectable cTnT concentration using this assay should be considered elevated. According to the third universal definition of myocardial infarction the following criteria with a clinical presentation consistent with acute myocardial ischemia meets the diagnosis for a myocardial infarction ([place]). Detection of a rise and/or fall of cTnT, with at least one value greater than the 99th percentile (> or = 0.01) and with at least one of the following ?? Symptoms of ischemia ?? New or presumed new significant EB-uxgbkzu-P wave (ST-T) changes or new left bundle [...] additional sample may be indicated. Reference: Third [place] Definition of Myocardial Infarction. Journal of the [place] [employer] 2012;60:1581-98 Blood 06/09/2021 5:47 PM EDT 06/09/2021 6:02 PM EDT Narrative Resulting Agency Comment Spec In Lab Isaiah Hoyos MD CHEMISTRY ORDERABLE S [facility] [place] [address] * (ABNORMAL) POCT Glucose (06/09/2021 4:40 PM EDT) Glucose, POC 200(H) 65 - 199 mg/dL [facility] Comment: Supplemental ranges: <140 mg/dL before meals <180 mg/dL all other times of the day Blood 06/09/2021 4:40 PM EDT 06/09/2021 4:40 PM EDT Supa Alegria MD POINT OF CARE TEST O RDERAAIRAM Performing Organization Address [facility] de Phone Number [facility] [place] [address] * (ABNORMAL) POCT Glucose (06/09/2021 3:02 PM EDT) Glucose, POC 209(H) 65 - 199 mg/dL [facility] Comment: Supplemental ranges: <140 mg/dL before meals <180 mg/dL all other times of the day Blood 06/09/2021 3:02 PM EDT 06/09/2021 3:02 PM EDT Supa Alegria MD POINT OF CARE TEST O EVITA Performing Organization Address [facility] Phone Number [facility] [place] [address] * ECHO COMPLETE W CONTRAST (06/09/2021 1:52 PM EDT) Anatomical Region Laterality Modality Other 06/09/2021 Narrative 06/09/2021 2:16 PM EDT Procedure: ?Transthoracic Echocardiogram Patient: ?COELHO ROMEO A ? (Age): 1965(56y) Med Rec#: ? [id number] ?Sex: ?M ? Site Loc: ? [facility] ?Ht / Wt: ??177(cm)/114(kg) Pt. Loc: ?[facility] ? BSA: ?2.29 Study Date: ?? 06/09/2021 ?Pt. Type: Inpatient Tape: ? Referring: [email or web address] Reading: Zuleyka Hodgson ([id number]) [employer] Engineer: Ortiz Sandoval Diagnosis: *Chest pain, unspecified (R07.9) [...] Vmax ?0.67 ? m/sec ? MV deceleration [id number] ? msec ? MV A-wave Vmax ?0.48 [...] 06/09/2021 14:15:33 Images reviewed and interpretation verified [facility] Cardiac Ultrasound Laboratory Procedure Note Zuleyka Hodgson MD - 06/09/2021 Procedure: Transthoracic Echocardiogram Patient: LAQUITA HARRIS(Age): 1965(56y) Med Rec#: [id number] Sex: M Site Loc: [facility] Ht / Wt: 177(cm)/114(kg) Pt. Loc: [facility] BSA: 2.29 Study Date: 06/09/2021 Pt. Type: Inpatient Tape: Referring: ALLISONMINHDA Reading: Zuleyka Hodgson ([id number]) [employer] Engineer: Ortiz Sandoval Diagnosis: *Chest pain, unspecified (R07.9) [...] MV E-wave Vmax 0.67 m/sec MV deceleration [id number] msec MV A-wave Vmax 0.48 m/sec MV [...] 06/09/2021 14:15:33 Images reviewed and interpretation verified [facility] Cardiac Ultrasound Laboratory Isaiah Hoyos MD ECHO ORDERABLES * (ABNORMAL) POCT Glucose (06/09/2021 11:49 AM EDT) Glucose, POC 258(H) 65 - 199 mg/dL [facility] Comment: Supplemental ranges: <140 mg/dL before meals <180 mg/dL all other times of the day Blood 06/09/2021 11:4 9 AM EDT 06/09/2021 11:49 AM EDT Supa Alegria MD POINT OF CARE TEST O RDERABLES [facility] [place] [address] * Troponin (06/09/2021 11:30 AM EDT) [facility] Troponin-T <0.01 0.00 - 0.00 ng/mL [facility] Comment: The 99th percentile for Troponin T is less than 0.01 ng/mL, any detectable cTnT concentration using this assay should be considered elevated. According to the third universal definition of myocardial infarction the following criteria with a clinical presentation consistent with acute myocardial ischemia meets the diagnosis for a myocardial infarction ([place]). Detection of a rise and/or fall of cTnT, with at least one value greater than the 99th percentile (> or = 0.01) and with at least one of the following ?? Symptoms of ischemia ?? New or presumed new significant PG-kmfbhda-Q wave (ST-T) changes or new left bundle [...] additional sample may be indicated. Reference: Third [place] Definition of Myocardial Infarction. Journal of the [employer] 2012;60:1581-98 Blood 06/09/2021 11:3 0 AM EDT 06/09/2021 11:44 AM EDT Narrative Resulting Agency Comment Spec In Lab Isaiah Hoyos MD CHEMISTRY ORDERABLE S Performing Organization Address [facility] de Phone Number [facility] [place] [address] * Heparin (unfractionated) Level (06/09/2021 11:30 AM EDT) Pathologist [facility] UF Heparin 0.32 IU/mL [facility] Comment: Guidelines for therapeutic [...] MD HEMATOLOGY ORDERABLE S Performing Organization Address [facility] Co de Phone Number [facility] [place] [address] * (ABNORMAL) POCT Glucose (06/09/2021 8:03 AM EDT) [facility] Glucose, POC 233(H) 65 - 199 mg/dL [facility] Comment: Supplemental ranges: <140 mg/dL before meals <180 mg/dL all other times of the day Blood 06/09/2021 8:03 AM EDT 06/09/2021 8:03 AM EDT Supa Alegria MD POINT OF CARE TEST O RDERABLES [facility] [place] [address] * (ABNORMAL) Differential, Automated (06/09/2021 5:50 AM EDT) Neutrophil % 56.8 % [facility] LABORATORY Neutrophil Absolute 4.64 1.70 - 6.10 x10(3)/mc L [facility] LABORATORY Lymph % 27.0 % [facility] LABOR[facility] Lymphocytes Abs 2.2 0.9 - 3.2 x10(3)/ L [facility] Monocyte % 8.6 % [facility] Monocyte Abs 0.7 0.3 - 0.9 x10(3)/ L [facility] Eos % 5.6 % [facility] Eosinophils Abs 0.5(H) 0.0 - 0.4 x10(3)/ L [facility] Basophil % 0.9 % [facility] Baso Absolute 0.1 0.0 - 0.1 x10(3)/ L [facility] Immature Gran % 1.10 % [facility] Comment: Immature granulocytes(IG's)percentage and absolute count will include metamyelocytes, myelocytes, and promyelocytes. Blood smears from CBCs yielding IG's will be scanned manually for concordance. If this scan disagrees with the automated IG or if promyelocytes are noted, a manual differential will be performed. Immature Gran Absolute 0.09(H) 0.00 - 0.04 x10(3)/ L [facility] Blood 06/09/2021 5:50 AM EDT 06/09/2021 6:06 AM EDT Narrative Resulting Agency Comment Spec In Lab Isaiah Hoyos MD HEMATOLOGY ORDERABL ES [facility] [place] [address] * Hemogram (06/09/2021 5:50 AM EDT) [facility] White Blood Cell 8.2 4.0 - 9.5 x10(3)/[facility] LABORATORY Red Blood Cell 4.87 4.58 - 5.54 x10(6)/[facility] LABORATORY Hemoglobin 14.1 13.7 - 16.5 g/dL [facility] Hematocrit 42.0 40.5 - 48.5 % [facility] Mean Cell Volume 86.2 82.9 - 93.1 fL [facility] Mean Cell Hemoglobin 29.0 27.5 - 32.1 pg [facility] Mean Cell Hemoglobin Concentration 33.6 32.0 - 35.7 g/dL [facility] Platelet 240 145 - 357 x10(3)/[facility] LABORATORY RDW Standard Deviation 40.7 36.0 - 45.0 [facility] LABORATORY RDW coefficient of variation 12.9 11.4 - 13.8 % [facility] Mean Platelet Volume 10.9 7.6 - 12.9 [facility] LABORATORY NRBC% auto 0.0 % [facility] LABORAT[facility] NRBC Absolute 0.000 0.000 - 0.000 x10(3)/[facility] LABORATORY Blood 06/09/2021 5:50 AM EDT 06/09/2021 6:06 AM EDT Narrative Resulting Agency Comment Spec In Lab Isaiah Hoyos MD HEMATOLOGY ORDERABL ES Performing Organization Address City/[facility]/ZIP Co de Phone Number [facility] [place] [address] * Troponin (06/09/2021 5:50 AM EDT) [facility] Troponin-T <0.01 0.00 - 0.00 ng/mL [facility] Comment: The 99th percentile for Troponin T is less than 0.01 ng/mL, any detectable cTnT concentration using this assay should be considered elevated. According to the third universal definition of myocardial infarction the following criteria with a clinical presentation consistent with acute myocardial ischemia meets the diagnosis for a myocardial infarction ([place]). Detection of a rise and/or fall of cTnT, with at least one value greater than the 99th percentile (> or = 0.01) and with at least one of the following ?? Symptoms of ischemia ?? New or presumed new significant AQ-vbvnium-O wave (ST-T) changes or new left bundle [...] additional sample may be indicated. Reference: Third [place] Definition of Myocardial Infarction. Journal of the [place] [employer] 2012;60:1581-98 Blood 06/09/2021 5:50 AM EDT 06/09/2021 6:05 AM EDT Narrative Resulting Agency Comment Spec In Lab Isaiah Hoyos MD CHEMISTRY ORDERABLE S [facility] [place] [address] * Heparin (unfractionated) Level (06/09/2021 5:50 AM EDT) UF Heparin 0.31 IU/mL [facility] Comment: Guidelines for therapeutic [...] MD HEMATOLOGY ORDERABL ES Performing Organization Address [facility] Co de Phone Number [facility] [place] [address] * Blood culture (06/09/2021 5:50 AM EDT) Blood Culture No growth at 5 days. [facility] Blood ANTECUBITAL REGION STRUCTURE / Unknown 06/09/2021 5:50 AM EDT 06/09/2021 10:08 AM EDT Comment:#1 Narrative Resulting Agency Comment Spec In Lab Isaiah Hoyos MD MICROBIOLOGY - BLOO D ORDERABLES Performing Organization Address [facility] Co de Phone Number [facility] [place] [address] * Lipid Panel (Reflex Direct LDL) (06/09/2021 5:50 AM EDT) Cholesterol, Total 207 mg/dL [facility] Comment: Lower Risk: <200 mg/dL Average Risk: 200-239 mg/dL Higher Risk: >yz=730 mg/dL Triglyceride 235 mg/dL [facility] Comment: Average Risk/Lower Risk: <150 mg/dL Borderline High Risk: 150-199 mg/dL High Risk: 200-499 mg/dL Very High Risk: >kr=467 mg/dL HDL Cholesterol 29 mg/dL [facility] Comment: Males: ?? Higher Risk: <40 mg/dL Females: ?? Higher Risk: <50 mg/dL LDL Cholesterol 131 mg/dL [facility] Comment: Lowest Risk: <100 mg/dL Lower Risk: 100-129 mg/dL Borderline High Risk: 130-159 mg/dL High Risk: 160-189 mg/dL Very High Risk: >lr=095 mg/dL Cholesterol/HDL Ratio 7.1 ratio [facility] Lipid Interpretation See Note [facility] Comment: Lipid management should be guided by a patient? s ASCVD risk, goals and preferences. ACC/AHA Guidelines recommend high intensity statin if clinical ASCVD or LDL greater than or equal to 190 mg/dL. http://[email or web address].[email or web address]/YIL-XVE-Xeboylcvm Adults aged 40-75 with LDL 70-189 mg/dL should have their 10 year ASCVD risk estimated with the ACC/AHA ASCVD risk dry ice machine operator http://tools.acc.org/JDEDP-Apuv-Jdhadpzqp/ Statin should be discussed if risk greater [...] Lab Isaiah Hoyos MD CHEMISTRY ORDERABLE S [facility] [place] [address] * COVID-19 PCR (06/09/2021 5:45 AM EDT) SARS-CoV-2 RNA (Rapid) Not Detected Not Detected [facility] Comment: This result [...] using the Simplexa COVID-19 Direct Assay by [employer] as authorized by the FDA issued Emergency [...] Department of Pathology and Laboratory Medicine at [facility], certified under the Clinical Laboratory Improvement [...] fact sheets at the following FDA website: https://www.fda.gov/medical-devices/ljmozojsthf-uksmefz-7324-nejjs-14-yunjgouhg- use-a ozeokgaacdiwu-grpipdn-ggtdpgy/mdfqk-ytulahqnjkn-zdac SARS-CoV-2 Source SCREW MACHINE ADJUSTER AUT[employer]ATIC Swab [facility] Nasopharyngeal Swab 06/09/20 5:45 AM EDT 06/10/2021 6:15 AM EDT Comment:Symptoms->Surveillan ce Narrative Resulting Agency Comment Spec In Lab Isaiah Hoyos MD MICROBIOLOGY - GENE RAL ORDERABLES Performing Organization Address [facility]/ZIP Co de Phone Number [facility] [place] [address] * (ABNORMAL) POCT Glucose (06/09/2021 4:20 AM EDT) Glucose, POC 224(H) 65 - 199 mg/dL [facility] Comment: Supplemental ranges: <140 mg/dL before meals <180 mg/dL all other times of the day Blood 06/09/2021 4:20 AM EDT 06/09/2021 4:20 AM EDT Supa Alegria MD POINT OF CARE TEST O RDERABLES Performing Organization Address [facility] Co de Phone Number [facility] [place] [address] * (ABNORMAL) POCT Glucose (06/09/2021 12:35 AM EDT) Glucose, POC 346(H) 65 - 199 mg/dL [facility] Comment: Supplemental ranges: <140 mg/dL before meals <180 mg/dL all other times of the day Blood 06/09/2021 12:3 5 AM EDT 06/09/2021 12:35 AM EDT Zuleyka Hodgson MD POINT OF CARE T EST ORDERABLES Performing Organization Address [facility] Co de Phone Number [facility] [place] [address] * Heparin (unfractionated) Level (2021 10:41 PM EDT) UF Heparin 0.26 IU/mL [facility] Comment: Guidelines for therapeutic [...] Lab Isaiah Hoyos MD HEMATOLOGY ORDERABL ES [facility] [place] [address] * EKG 12 Lead (2021 8:46 PM EDT) Ventricular rate 69 BPM MUSE SYSTEM Atrial Rate 69 BPM MUSE SYSTEM P-R Interval 148 ms MUSE SYSTEM QRS Duration 84 ms MUSE SYSTEM Q-T Interval 384 ms MUSE SYSTEM QTC Calculated (Bezet) 411 ms MUSE SYSTEM Calculated P Bradford 39 degrees MUSE SYSTEM Calculated R Bradford 14 degrees MUSE SYSTEM Calculated T Bradford 21 degrees MUSE SYSTEM INTERPRETATION Normal sinus [...] Blood Culture No growth at 5 days. [facility] Blood 2021 8:26 PM EDT 2021 8:57 PM EDT Narrative Resulting Agency Comment Spec In Lab Isaiah Hoyos MD MICROBIOLOGY - BLOO D ORDERABLES [facility] [place] [address] * Troponin (2021 7:31 PM EDT) Troponin-T <0.01 0.00 - 0.00 ng/mL [facility] Comment: The 99th percentile for Troponin T is less than 0.01 ng/mL, any detectable cTnT concentration using this assay should be considered elevated. According to the third universal definition of myocardial infarction the following criteria with a clinical presentation consistent with acute myocardial ischemia meets the diagnosis for a myocardial infarction ([place]). Detection of a rise and/or fall of cTnT, with at least one value greater than the 99th percentile (> or = 0.01) and with at least one of the following ?? Symptoms of ischemia ?? New or presumed new significant DI-rhlgvny-P wave (ST-T) changes or new left bundle [...] additional sample may be indicated. Reference: Third [place] Definition of Myocardial Infarction. Journal of the [place] [employer] 2012;60:1581-98 Blood 2021 7:31 PM EDT 2021 7:37 PM EDT Narrative Resulting Agency Comment Spec In Lab Isaiah Hoyos MD CHEMISTRY ORDERABLE S [facility] [place] [address] * (ABNORMAL) Differential, Automated (2021 7:31 PM EDT) Neutrophil % 53.6 % [facility] Neutrophil Absolute 4.36 1.70 - 6.10 x10(3)/mc L [facility] Lymph % 28.5 % [facility] Lymphocytes Abs 2.3 0.9 - 3.2 x10(3)/ L [facility] Monocyte % 10.8 % [facility] Monocyte Abs 0.9 0.3 - 0.9 x10(3)/ L [facility] Eos % 5.4 % [facility] Eosinophils Abs 0.4 0.0 - 0.4 x10(3)/ L [facility] Basophil % 1.0 % [facility] Baso Absolute 0.1 0.0 - 0.1 x10(3)/ L [facility] Immature Gran % 0.70 % [facility] Comment: Immature granulocytes(IG's)percentage and absolute count will include metamyelocytes, myelocytes, and promyelocytes. Blood smears from CBCs yielding IG's will be scanned manually for concordance. If this scan disagrees with the automated IG or if promyelocytes are noted, a manual differential will be performed. Immature Gran Absolute 0.06(H) 0.00 - 0.04 x10(3)/ L [facility] Blood 2021 7:31 PM EDT 2021 7:37 PM EDT Narrative Resulting Agency Comment Spec In Lab Isaiah Hoyos MD HEMATOLOGY ORDERABL ES [facility] [place] [address] * (ABNORMAL) Hemogram (2021 7:31 PM EDT) [facility] White Blood Cell 8.1 4.0 - 9.5 x10(3)/[facility] LABORATORY Red Blood Cell 4.65 4.58 - 5.54 x10(6)/[facility] LABORATORY Hemoglobin 13.5(L) 13.7 - 16.5 g/dL [facility] Hematocrit 39.4(L) 40.5 - 48.5 % [facility] Mean Cell Volume 84.7 82.9 - 93.1 fL [facility] Mean Cell Hemoglobin 29.0 27.5 - 32.1 pg [facility] Mean Cell Hemoglobin Concentration 34.3 32.0 - 35.7 g/dL [facility] Platelet 219 145 - 357 x10(3)/[facility] LABORATORY RDW Standard Deviation 39.9 36.0 - 45.0 [facility] LABORATORY RDW coefficient of variation 13.1 11.4 - 13.8 % [facility] Mean Platelet Volume 10.5 7.6 - 12.9 [facility] LABORATORY NRBC% auto 0.0 % [facility] NRBC Absolute 0.000 0.000 - 0.000 x10(3)/[facility] LABORATORY Blood 2021 7:31 PM EDT 2021 7:37 PM EDT Narrative Resulting Agency Comment Spec In Lab Isaiah Hoyos MD HEMATOLOGY ORDERABL ES [facility] [place] [address] * (ABNORMAL) Basic Metabolic Panel (non-fasting) (2021 7:31 PM EDT) [facility] Glucose 244(H) 65 - 199 mg/dL [facility] Comment:Diabetes: >=200 mg/d L plus symptoms Blood Urea Nitrogen 12 10 - 20 mg/dL [facility] Creatinine 0.73(L) 0.80 - 1.50 mg/dL [facility] Sodium 133(L) 135 - 145 mmol/L [facility] Potassium 4.0 3.5 - 5.0 mmol/L [facility] Comment: Please note: ??Patients with WBC >100,000 may have falsely elevated Potassium levels. ??For accurate Potassium quantification in these patients send serum separator tube (gold top) for subsequent determinations. ??Contact the Clinical Chemistry Laboratory if there are any questions. Chloride 100 98 - 107 mmol/L [facility] Carbon Dioxide 22 22 - 31 mmol/L [facility] Anion Gap 11 5 - 15 mmol/L [facility] Calcium 9.3 8.5 - 10.5 mg/dL [facility] Est Glomerular Filtration Rate 105 >=60 mL/min/1. 73 m?? [facility] Comment: This patient? [...] Lab Isaiah Hoyos MD CHEMISTRY ORDERABLE S [facility] [place] [address] documented in this encounter Visit Diagnoses Not [...] 0932 (Given - Provider: Fabienne Morelos RN)1041 ([facility] Hold - Provider: Admin Adt - Reason: Transfer to a Procedural area)1224 ([facility] Unhold - Provider: Admin [...] 0932 (Given - Provider: Fabienne Morelos RN)1041 ([facility] Hold - Provider: Admin Adt - Reason: Transfer to a Procedural area)1224 ([facility] Unhold - Provider: Admin Adt) DULoxetine DR (Cymbalta) capsule 60 mg 60 mg, Oral, 2 TIMES DAILY, First dose on 06/08/21 at 2115, Until Discontinued, Routine 2140 (Given - Provider: Arturo Morris RN) 0837 (Given - Provider: Fabienne Morelos RN)2021 (Given - Provider: Emily Olmedo RN) 0932 (Given - Provider: Fabienne Morelos RN)1041 ([facility] Hold - Provider: Admin Adt - Reason: Transfer to a Procedural area)1224 ([facility] Unhold - Provider: Admin Adt) gabapentin (Neurontin) capsule 300 mg 300 mg, Oral, 3 TIMES DAILY, First dose on 06/08/21 at 2115, Until Discontinued, Routine 2140 (Given - Provider: Arturo Morris RN) 0837 (Given - Provider: Fabienne Morelos RN)152 (Given - Provider: Fabienne Morelos RN)202 (Given - Provider: Emily Olmedo RN) 0932 (Given - Provider: Fabienne Morelos RN)1041 ([facility] Hold - Provider: Admin Adt - Reason: Transfer to a Procedural area)1224 ([facility] Unhold - Provider: Admin Adt)1544 [...] - Reason: Transfer to a Procedural area)1224 ([facility] Unhold - Provider: Admin [...] - Reason: Transfer to a Procedural area)1224 ([facility] Unhold - Provider: Admin [...] - Reason: Transfer to a Procedural area)1224 ([facility] Unhold - Provider: Admin Adt)1238 (Given - Provider: Fabienne Morelos RN) rosuvastatin (Crestor) tablet 40 mg 40 mg, Oral, EVERY EVENING, First dose on Thu06/10/21 at 1700, Until Discontinued, Routine 1041 (OCT Hold - Provider: Admin Adt - Reason: Transfer to a Procedural area)1224 ([facility] Unhold - Provider: Admin Adt)1633 [...] - Reason: Transfer to a Procedural area)1224 ([facility] Unhold - Provider: Admin [...] Jose Damon MD - Comment: Contrast in Physical Therapy Asst) lidocaine (Xylocaine) 1% (10 mg/mL) injection 3 mg 3 mg (0.3 mL), Subcutaneous, ONCE PRN, 1 dose, Starting on 06/08/21 at 1909, Until Thu06/10/21 at 2029, for discomfort with PIV insertion, Routine 1041 (OCT Hold - Pro vider: Admin Adt - Reason: Transfer to a Procedural area)1224 ([facility] Unhold - Provider: Admin [...] - Reason: Transfer to a Procedural area)1224 ([facility] Unhold - Provider: Admin [...] - Reason: Transfer to a Procedural area)1224 ([facility] Unhold - Provider: Admin [...] Prov ider: Naye Song RN - Comment: Physical Therapy Asst Flush Line) verapamiL (Isoptin) (2.5 mg/mL) injection [...] Routine documented in this encounter Care Teams Mechanical Designer Relationship Specialty Start Date End Date Coni Lim MD [address] [place] [address] PCP - General 07/16/10 documented as of this encounter
--- OUTSIDE RECORDS SUMMARY | 2024-08-05 17:19 | XMS_ITS | Encounter Summary ---
Author Organization [facility]ly [facility] Address [facility] [place] [address] Care Team Providers Care French Binder Name Role Phone Coni Lim MD Primary Care Provider [phone] Encounter Details Date Type Department Care Team (Late st Contact Info) Description 04/07/2023 7:25 PM EDT Ancillary Procedure Radiology Library at [facility] [place] [address] Patel Griggs MD [facility] [place] [address] Social History Tobacco Use Types Packs/Day Years [...] IMG FILM LIBRARY ORD ERABLES DH RAD [place], [place] documented in this encounter Visit Diagnoses Not on filedocumented in this encounter Care Teams French Binder Relationship Specialty Start Date End Date Coni Lim MD [address] [place] [address] PCP - General 07/16/10 documented as of this encounter
--- OUTSIDE RECORDS SUMMARY | 2024-08-05 17:19 | XMS_ITS | Encounter Summary ---
Author Organization [facility] Address [facility] [place] [address] Care Team Providers Care Director [employer] Name Role Phone Coni Lim MD Primary Care Provider [phone] Encounter Details Date Type Department Care Team (Late st Contact Info) Description 04/07/2023 External [place] [address] Social History Tobacco Use Types Packs/Day Years [...] filedocumented in this encounter Care Teams Director [employer] Relationship Specialty Start Date End Date Coni Lim MD [address] [place] [address] PCP - General 07/16/10 documented as of this encounter
--- OUTSIDE RECORDS SUMMARY | 2024-08-05 17:19 | XMS_ITS | Encounter Summary ---
Author Organization [facility] Address [facility] [place] [address] Care Team Providers Care Manager Group Home Name Role Phone Coni Lim MD Primary Care Provider [phone] Encounter Details Date Type Department Care Team (Late st Contact Info) Description 06/07/2020 [place] [address] Keeley Paredes MD [facility] DR OPHTHALMOLOGY [place] [id number] Social History Tobacco Use Types Packs/Day Years [...] filedocumented in this encounter Care Teams Manager Group Home Relationship Specialty Start Date End Date Coni Lim MD [address] [place] [address] PCP - General 07/16/10 documented as of this encounter
--- OUTSIDE RECORDS SUMMARY | 2024-08-05 17:19 | XMS_ITS | Encounter Summary ---
Author Organization [facility] Address [facility] [place] [address] Care Team Providers Care Chief Media Officer Name Role Phone Coni Lim MD Primary Care Provider [phone] Encounter Details Date Type Department Care Team (Late st Contact Info) Description 11/22/2021 Ancillary Procedure Radiology Library at [facility] [place] [address] Cecilia Maza MD [facility] [place] [address] Social History Tobacco Use Types Packs/Day Years [...] Ultrasound Study (11/22/2021 12:00 AM EDT) Narrative [facility] - 02/25/2022 4:20 PM EDT This exam is auto-finalizing. It's purpose is for storage only. Cecilia Maza MD IMG FILM LIBRARY ORDERABLES DH [place], [place] documented in this encounter Visit Diagnoses Not on filedocumented in this encounter Care Teams Chief Media Officer Relationship Specialty Start Date End Date Coni Lim MD [address] [place] [address] PCP - General 07/16/10 documented as of this encounter
--- OUTSIDE RECORDS SUMMARY | 2024-08-05 17:19 | XMS_ITS | Encounter Summary ---
[place] [address] Care Team Providers Care Group Segment Consultant Name Role Phone Coni Lim MD Primary Care Provider [phone] Reason for Referral * Consultation (Routine) - Closed Specialty Diagnoses / Procedures Referred By Ruby garvin Referred To Contact General Surgery Diagnoses Nontoxic single thyroid nodule Kevin Landaverde MD [address] [place] [address] [facility] [address] [place] [address] Referral ID Status Reason Start Date Expiration Date V isits Requested Visits Authorized [id number] Closed Consult, Test & Treat 01/30/2022 01/30/2023 1 1 Encounter Details Date Type Department Care Team (Late st Contact Info) Description 01/30/2022 Transcribe Orders [place] [phone] Kevin Landaverde MD [address] [place] [address] [place], [place] [id number] Nontoxic single thyroid nodule Social History Tobacco [...] goiter documented in this encounter Care Teams Group Segment Consultant Relationship Specialty Start Date End Date Coni Lim MD [address] [place] [address] PCP - General 07/16/10 documented as of this encounter
--- OUTSIDE RECORDS SUMMARY | 2024-08-05 17:19 | XMS_ITS | Encounter Summary ---
Author Organization [facility] Address [facility] [place] [address] Care Team Providers Care Store Operations Associate Name Role Phone Coni Lim MD Primary Care Provider [phone] Reason for Visit * Consultation (Routine) - Closed Specialty Diagnoses / Procedures Referred By Ruby garvin Referred To Contact Ophthalmology Diagnoses inflammed caruncle od Darjee, Jaymal, OD [address] [place] [address] Keeley Paredes MD [facility] [place] [address] Referral ID Status Reason Start Date Expiration Date V isits Requested Visits Authorized [id number] Closed Consult, Test & Treat 09/28/2019 09/27/2020 1 1 Encounter Details Date Type Department Care Team (Late st Contact Info) Description 05/24/2020 10:15 AM EDT Office [place] [address] Keeley Paredes MD [facility] [place] [address] Conjunctival lesion Social History Tobacco Use Types [...] conjunctiva documented in this encounter Care Teams Store Operations Associate Relationship Specialty Start Date End Date Coni Lim MD [address] [place] [address] PCP - General 07/16/10 documented as of this encounter
--- OUTSIDE RECORDS SUMMARY | 2024-08-05 17:19 | XMS_ITS | Encounter Summary ---
[place] [address] Care Team Providers Care Studio Sales Associate Name Role Phone Coni Lim MD Primary Care Provider [phone] Reason for Visit * Auth/Cert Specialty Diagnoses / Procedures Referred By Ruby garvin Referred To Contact Diagnoses Unstable angina Chest pain Procedures EMERGENCY [facility] Referral ID Status Reason Start Date Expiration Date Visits Re quested Visits Authorized [id number] 1 1 Encounter Details Date Type Department Care Team (Latest Contact Info) Description 06/09/2021 9:25 AM EDT - 06/09/2021 11:59 PM EDT Hospital Encounter Non[place] [phone] Discharge Disposition: Home Social History Tobacco Use [...] mLs documented in this encounter Care Teams Studio Sales Associate Relationship Specialty Start Date End Date Coni Lim MD [address] [place] [address] PCP - General 07/16/10 documented as of this encounter
--- OUTSIDE RECORDS SUMMARY | 2024-08-05 17:19 | XMS_ITS | Encounter Summary ---
Author Organization [facility] Address [facility] [place] [address] Care Team Providers Care Assistant Toddler Teacher Name Role Phone Coni Lim MD Primary Care Provider [phone] Encounter Details Date Type Department Care Team (Late st Contact Info) Description 01/13/2022 Ancillary Procedure Radiology Library at [facility] [place] [address] Cecilia Maza MD [facility] [place] [address] Social History Tobacco Use Types Packs/Day Years [...] Ultrasound Study (01/13/2022 12:00 AM EDT) Narrative [facility] - 02/25/2022 4:21 PM EDT This exam is auto-finalizing. It's purpose is for storage only. Cecilia Maza MD IMG FILM LIBRARY ORDERABLES DH [place], [place] documented in this encounter Visit Diagnoses Not on filedocumented in this encounter Care Teams Assistant Toddler Teacher Relationship Specialty Start Date End Date Coni Lim MD [address] [place] [address] PCP - General 07/16/10 documented as of this encounter
--- OUTSIDE RECORDS SUMMARY | 2024-08-05 17:20 | XMS_ITS | Encounter Summary ---
[place] [address] Care Team Providers Care Meals On Wheels Driver Name Role Phone Coni Lim MD Primary Care Provider [phone] Encounter Details Date Type Department Care Team (Late st Contact Info) Description 09/13/2018 11:00 AM EST Interpretation Only Cardiology at [address] [id number] Rafael Nieto Jr., MD [address] [place] [address] Chest pain, unspecified type Social History Tobacco [...] type documented in this encounter Care Teams Meals On Wheels Driver Relationship Specialty Start Date End Date Coni Lim MD [address] [place] [address] PCP - General 07/16/10 documented as of this encounter
--- OUTSIDE RECORDS SUMMARY | 2024-08-05 17:20 | XMS_ITS | Encounter Summary ---
Author Organization [facility] [place] [address] Care Team Providers Care Family Practice Physician Name Role Phone Coni Lim MD Primary Care Provider [phone] Encounter Details Date Type Department Care Team (Late st Contact Info) Description 03/13/2019 External Results DH Patient Placement [facility] [place] [address] Social History Tobacco Use Types Packs/Day Years [...] on filedocumented in this encounter Care Teams Family Practice Physician Relationship Specialty Start Date End Date Coni Lim MD [address] [place] [address] PCP - General 07/16/10 documented as of this encounter
--- OUTSIDE RECORDS SUMMARY | 2024-08-05 17:20 | XMS_ITS | Encounter Summary ---
Author Organization [facility] Address [facility] [place] [address] Care Team Providers Care Transmission Superintendent Name Role Phone Coni Lim MD Primary Care Provider [phone] Reason for Visit * Auth/Cert Specialty Diagnoses / Procedures Referred By Ruby t Referred To Contact Diagnoses ACS (acute coronary syndrome) UNSTABLE ANGINA Referral ID Status Reason Start Date Expiration Date Visits Re quested Visits Authorized [id number] 1 1 Encounter Details Date Type Department Care Team (Latest Contact Info) Description 03/14/2019 12:38 AM EDT - 03/16/2019 3:55 PM EDT Hospital Encounter [place] [id number] Wale Mckeon MD [facility] [place] [address] Unstable angina Discharge Disposition: Home Social History [...] Romeo Coe Patient Age: 53 y.o. Language: Ecuadorean Race: White Ethnicity: Not nor Admit date: [...] Contact Information: MD Esperanza Solis, KRYSTINA Bush, RECORDINGS LIBRARIAN [phone] Discharge Diagnoses (Hospital Problems) and Secondary Diagnoses [...] TIA and GERD who was transferred from [facility] with a diagnosis of UAP. ?? [...] was called. ?? His last admission to [facility] was in Aug 2017 when he presented [...] started on Heparin gtt and transferred to [facility] for cardiac cath. Hospital Course: Undifferentiated Chest Pain - Coronary Vasospasm/Microvessel angina vs Non- Cardiac Chest Pain Romeo Coe is a 53 yo M transferred from [facility] for evaluation of unstable angina. Troponins [...] PF, Split 07/30/2013 ??? Influenza Vaccine (Novel) [id number], Injectable 05/24/2009 ??? Influenza Vaccine w/Preservative, Split [...] appointments: During 8am-5pm Thursday through Thursday call [phone] to speak with a nurse in the cardiology clinic All other times call [phone] and ask to speak to the cryptologist automobile service station manager. Return to work: Ok to resume, no heavy lifting for one week (nothing over 10 lbs) Driving: No driving for 48 hours after catheterization. Follow up Appointments: PCP Coni Lim MD/Keo Ballard [phone] Your follow up appointment is scheduled for March 25, 2019 at 10 45 am Cardiology- Dr. Lawson - [phone] (First apt at [facility], then you will be seen at [facility] thereafter).Your follow up appointment is scheduled for Saturday April 13, 2019 at 1:15 pm Home oxygen therapy: N/A Arrangements for VNA/home care: none Discharge References/Attachments None Esperanza Collier APRN Cardiovascular Medicine Pager [phone] 03/16/2019 documented in this encounter Discharge Instructions * Discharge Instructions* Esperanza Collier APRN - 03/16/2019 3:00 PM EDT Call your doctor if: Chest pain, shortness of breath, pain or swelling in legs occurs. If you have non-emergent questions between now and the time of your follow up appointments: During 8am-5pm Thursday through Thursday call [phone] to speak with a nurse in the cardiology clinic All other times call [phone] and ask to speak to the cryptologist automobile service station manager. Return to work: Ok to resume, no heavy lifting for one week (nothing over 10 lbs) Driving: No driving for 48 hours after catheterization. Follow up Appointments: PCP Coni Lim MD/Keo Ballard [phone] Your follow up appointment is scheduled for March 25, 2019 at 10 45 am Cardiology- Dr. Lawson - [phone] (First apt at [facility], then you will be seen at [facility] thereafter).Your follow up appointment is scheduled [...] Progress Note Patient Name: Romeo Coe Service: FREIGHT ELEVATOR ERECTOR / PA Responsible Attending: Wale Mckeon MD [...] Full code Discussed with MD Esperanza Brar [facility] Cardiovascular Medicine Pager [phone] 03/16/2019 Attending Ship/Rec/Doc Control Addendum: This patient was seen in conjunction with Esperanza Collier as part of a shared visit. I have independently interviewed and examined the patient and reviewed the pertinent diagnostic information. I agree with the principal findings documented above. The assessment and plan were formulated in discussion with me. Ruled out PE with CT today. Ready for discharge on medical therapies. Wale Mckeon MD, [facility], [facility] Staff Ship/Rec/Doc Control pager [phone] * Jacqueline Montes De Oca RN - [...] Progress Note Patient Name: Romeo Coe Service: FREIGHT ELEVATOR ERECTOR / PA Responsible Attending: Wale Mckeon MD Reason for continued hospitalization: Evaluation and management of unstable angina S/p [facility] Medication adjustment Active Problems: Active Hospital Problems [...] Full code Discussed with MD Esperanza Brar [facility] Cardiovascular Medicine Pager [phone] 03/15/2019 Attending Ship/Rec/Doc Control Addendum: This patient was seen in conjunction [...] limited us thus far. Wale Mckeon MD, [facility], [facility] Staff Ship/Rec/Doc Control pager [phone] * Wale Mckeon MD - 03/14/2019 9:23 AM EDT Images from the original note were not included. Inpatient Cardiology Progress Note Patient Name: Romeo Coe Service: FREIGHT ELEVATOR ERECTOR / PA Responsible Attending: Wale Mckeon MD Reason for continued hospitalization: Evaluation and management of unstable angina Awaiting [facility] today Active Problems: Active Hospital Problems Diagnosis ??? ACS (acute coronary syndrome) Resolved Hospital Problems No resolved problems to display. Interval History: Admitted overnight in the setting of unstable angina. Troponins negative. TTE with preserved EF at 63% and no WMA. Awaiting [facility] today. Review of Systems: Review of Systems [...] Full code Discussed with MD Siri Brar, RECORDINGS LIBRARIAN Pager [phone] 03/14/2019 Attending Ship/Rec/Doc Control Addendum: This patient was seen in conjunction [...] regimen today (include vasodilator) Wale Mckeon MD, [facility] Staff Ship/Rec/Doc Control pager [phone] documented in this encounter H&P Notes * [...] TIA and GERD who was transferred from [facility] with a diagnosis of UAP. He [...] EMS was called. His last admission to [facility] was in Aug 2017 when he presented [...] started on Heparin gtt and transferred to [facility] for cardiac cath. Past Medical History: Past [...] of Onset ??? Myocardial Infarction Father 46 [place], CABG ??? Heart Disease Father ??? Diabetes [...] file Gets together: Not on file Attends catholic service: Not on file Active member of [...] Lives with and daughter at home in [place], [place]. He is disabled now. He used [...] edema . 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 Romeo Ceo is a 53 y/o [...] multiple PCIs since 2011. Last Cath at [facility] in Aug 2017 that showed the patency [...] with good effect. 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 Pt able to [...] 100s. ECG is nonischemic. Discussed with Dr. Mcekon and decision made to defer nitrates for [...] EVALUATION NOTE: OUTCOME SUMMARY: Patient to label printer today. No interventions. Right radial cath site [...] TIA and GERD who was transferred from [facility] with a diagnosis of UAP Past Medical History: Diagnosis Date ??? Allergy ??? CAD (coronary artery disease), non-obstructive 05/31/2012 ??? Depression ??? DM (diabetes mellitus) 05/31/2012 ??? Dyslipidemia 05/31/2012 ??? GERD (gastroesophageal reflux disease) 05/31/2012 ??? HTN (hypertension) 05/31/2012 ??? Hx-TIA (transient ischemic attack) 06/03/2012 ??? Smoker 05/31/2012 Hospitalizations Within the Past 30 Days: no [facility] admits in last 30 days. Anticipated Length Of Stay (If known): 1-3 days Current Decision-Making Capacity: Patient is A&Ox4 and able to make all medical decisions Advance Care Planning: Full Code Not in EPIC.This author discussed ADs with patient and offered advance directive booklet and forms,patient deferred will discuss with family at a later time. [place] surrogacy law and process of guardianship explained. If AD's have not been completed then Spouse Dasia would be surrogate decision maker per [place] surrogate decision making law. Current Coping/Education/Information Needs: Current coping questions and concerns have been addressed. Current Functional Ability: assist of staff Functional Status Prior to Admission: independent with ADLs, driving, no DME used at baseline. Home Environment: lives in 2 level house, bedroom downstairs, no stairs to enter from outside[address] [place] [address] Social & Family Supports/Community Resources: lives with spouse and daughter Extended Emergency Contact Information Primary Emergency Contact: Dasia Coe Address: [address] [place] [address] [facility] Relation: Spouse Health/Prescription Coverage: Primary Insurance: MEDICARE Secondary Insurance: N/A Prescription Coverage: Yes Preferred Pharmacy: [id number] - [place] [id number] [facility] [address] [place] [id number] Other: none Primary Care Provider: Coni Lim MD [phone] Patient/Caregiver Goals of Treatment: return to previous [...] of care planning. Rashmi Simmons, VERO Nurse Marketing Regional Consultant Pager [phone] * Op Note - Lexus Gutiérrez MD - 03/14/2019 10:54 AM EDT [facility] Operative Note Patient Name: Romeo Coe : [id number] MR#: [id number] Case Date: 03/14/2019 Surgeon: Surgeon(s) and Role: * Lexus Gutiérrez MD - Primary * Satnam Leger MD - Fellow Preoperative diagnosis: ?CAD Postoperative diagnosis: No new obstructive lesions from prior cath Procedure(s) (LRB): CARDIAC CATHETERIZATION (N/A) CORONARY ANGIOGRAPHY; W [facility],POSSIBLE PCI (N/A) Access: Radial provided good support for procedure. 6 Fr RRA with TR band in place, good hemostasis. The patient tolerated the procedures smoothly and was transferred from the cardiac catheterization lab to the next level of care in stable condition, without pain. No evident early complications. Results discussed with service getter filler Dr Mckeon, and with the patient. He did not have family that he preferred we call. He needs to be connected with a referring getter filler locally (seen at [facility]). A time-out was conducted prior to [...] Dean had a good night. Arrived from [facility] hospital on Heparin drip. Denied chest [...] further details. Ed Simpson MD 03/14/2019 Pager [phone] documented in this encounter Plan of Treatment [...] below. ? Electronically signed by: Adithya Hutchison [facility] ([phone]), at 03/16/2019 1:06 PM Narrative 03/16/2019 1:06 [...] number below. Electronically signed by: Adithya Hutchison [facility]([phone]), at 03/16/2019 1:06 PM Esperanza Collier APRN IMG CT ORDERABLES * POCT Glucose (03/16/2019 11:34 AM EDT) Glucose, POC 106 65 - 199 mg/dL [facility] Comment: Supplemental ranges: <140 mg/dL before meals <180 mg/dL all other times of the day Blood specimen (specimen) 03/16/2019 11:34 AM EDT 03/16/2019 11:34 AM EDT Wale Mckeon MD POINT OF CARE TEST O RDERABLES Performing Organization Address City/[facility]/ZIP Co de Phone Number [facility] [place] [address] * POCT Glucose (03/16/2019 7:38 AM EDT) Glucose, POC 102 65 - 199 mg/dL [facility] Comment: Supplemental ranges: <140 mg/dL before meals <180 mg/dL all other times of the day Blood specimen (specimen) 03/16/2019 7:38 AM EDT 03/16/2019 7:38 AM EDT Wale Mckeon MD POINT OF CARE TEST O RDERAAIRAM Performing Organization Address [facility] Co de Phone Number [facility] [place] [address] * EKG 12 Lead (03/16/2019 7:07 AM EDT) Ventricular rate 59 BPM MUSE SYSTEM Atrial Rate 59 BPM MUSE SYSTEM P-R Interval 148 ms MUSE SYSTEM QRS Duration 88 ms MUSE SYSTEM Q-T Interval 408 ms MUSE SYSTEM QTC Calculated (Bezet) 403 ms MUSE SYSTEM Calculated P [place] 7 degrees MUSE SYSTEM Calculated R [place] 23 degrees MUSE SYSTEM Calculated T [place] 40 degrees MUSE SYSTEM INTERPRETATION Sinus bradycardia Otherwise normal ECG When compared with ECG of 15-MAR-2019 20:23, No significant change was found Confirmed by MD SOUMYA, JENNIFER ([id number]) on 03/16/2019 8:30:39 AM MUSE SYSTEM 03/16/2019 7:07 AM EDT 03/16/2019 8:30 AM EDT Siri Bush APRN ECG ORDERABLES Performing Organization Address City/[facility] Co de Phone Number MUSE SYSTEM * Differential, Automated (03/16/2019 5:07 AM EDT) Neutrophil % 48.9 % [facility] Neutrophil Absolute 3.25 1.70 - 6.10 x10(3)/[facility] LABORAT[facility] Lymph % 38.1 % [facility] Lymphocytes Abs 2.5 0.9 - 3.2 x10(3)/[facility] LABORATORY Monocyte % 8.0 % [facility] Monocyte Abs 0.5 0.3 - 0.9 x10(3)/[facility] LABORATORY Eos % 4.2 % [facility] Eosinophils Abs 0.3 0.0 - 0.4 x10(3)/[facility] LABORATORY Basophil % 0.5 % [facility] Baso Absolute 0.0 0.0 - 0.1 x10(3)/[facility] LABORATORY Immature Gran % 0.30 % [facility] Comment: Immature granulocytes(IG's)percentage and absolute count will include metamyelocytes, myelocytes, and promyelocytes. Blood smears from CBCs yielding IG's will be scanned manually for concordance. If this scan disagrees with the automated IG or if promyelocytes are noted, a manual differential will be performed. Immature Gran Absolute 0.02 0.00 - 0.04 x10(3)/[facility] Blood specimen (specimen) 03/16/2019 5:07 AM EDT 03/16/2019 5:24 AM EDT Narrative Resulting Agency Comment Spec In Lab Siri Bush APRN HEMATOLOGY ORDERAB LES [facility] [place] [address] * Hemogram (03/16/2019 5:07 AM EDT) White Blood Cell 6.6 4.0 - 9.5 x10(3)/[facility] LABORATORY Red Blood Cell 5.33 4.58 - 5.54 x10(6)/[facility] Hemoglobin 15.6 13.7 - 16.5 gm/dL [facility] Hematocrit 45.4 40.5 - 48.5 % [facility] Mean Cell Volume 85.2 82.9 - 93.[address] [facility] Mean Cell Hemoglobin 29.3 27.5 - 32.[address] [facility] Mean Cell Hemoglobin Concentration 34.4 32.0 - 35.7 gm/dL [facility] Platelet 154 145 - 357 x10(3)/[facility] LABORATORY RDW Standard Deviation 38.3 36.0 - 45.0 [facility] LABORATORY RDW coefficient of variation 12.5 11.4 - 13.8 % [facility] Mean Platelet Volume 10.9 7.6 - 12.9 [facility] LABORATORY NRBC% auto 0.0 % [facility] NRBC Absolute 0.000 0.000 - 0.000 x10(3)/[facility] Blood specimen (specimen) 03/16/2019 5:07 AM EDT 03/16/2019 5:24 AM EDT Narrative Resulting Agency Comment Spec In Lab Siri Bush APRN HEMATOLOGY ORDERAB LES [facility] [place] [address] * (ABNORMAL) BMP w/fasting Glucose (03/16/2019 5:07 AM EDT) Glucose Fasting 119(H) 65 - 99 mg/dL [facility] Comment: ?Fasting* Glucose Interpretive Criteria [...] of Diabetes Mellitus, Position Statement from the [place] [employer]. ??Diabetes Care, Volume 33, Supplement 1, Aug 2009 Blood Urea Nitrogen 10 10 - 20 mg/dL [facility] Creatinine 0.91 0.80 - 1.50 mg/dL [facility] Sodium 138 135 - 145 mmol/L [facility] Potassium 3.6 3.5 - 5.0 mmol/L [facility] Comment: Please note: ??Patients with WBC >100,000 may have falsely elevated Potassium levels. ??For accurate Potassium quantification in these patients send serum separator tube (gold top) for subsequent determinations. ??Contact the Clinical Chemistry Laboratory if there are any questions. Chloride 106 98 - 107 mmol/L [facility] Carbon Dioxide 20(L) 22 - 31 mmol/L [facility] Anion Gap 12 5 - 15 mmol/L [facility] Calcium 9.2 8.5 - 10.5 mg/dL [facility] Est Glomerular Filtration Rate 97 >=60 mL/min/1. 73 m?? [facility] Comment: The eGFR was calculated using the CKD-EPI equation. As with all creatinine based estimates of kidney function, eGFR values calculated with the CKD-EPI equation are not accurate in patients with acute kidney failure, extremes of body mass or the acutely ill. http://Contently/DHMCnkf eGFR 113 >=60 mL/min/1. 73 m?? [facility] Comment: The eGFR was calculated using the CKD-EPI equation. As with all creatinine based estimates of kidney function, eGFR values calculated with the CKD-EPI equation are not accurate in patients with acute kidney failure, extremes of body mass or the acutely ill. [email or web address] Blood specimen (specimen) 03/16/2019 5:07 AM EDT 03/16/2019 5:24 AM EDT Narrative Resulting Agency Comment Spec In Lab Siri Bush APRN CHEMISTRY ORDERABL ES [facility] [place] [address] * EKG 12 Lead (03/15/2019 8:23 PM EDT) Ventricular rate 65 BPM MUSE SYSTEM Atrial Rate 65 BPM MUSE SYSTEM P-R Interval 140 ms MUSE SYSTEM QRS Duration 86 ms MUSE SYSTEM Q-T Interval 384 ms MUSE SYSTEM QTC Calculated (Bezet) 399 ms MUSE SYSTEM Calculated P [place] 16 degrees MUSE SYSTEM Calculated R [place] 39 degrees MUSE SYSTEM Calculated T [place] 37 degrees MUSE SYSTEM INTERPRETATION Normal sinus rhythm Normal ECG When compared with ECG of 15-MAR-2019 10:49, No significant change was found Confirmed by MD SOUMYA, JENNIFER ([id number]) on 03/16/2019 12:17:34 AM MUSE SYSTEM 03/15/2019 8:23 PM EDT 03/16/2019 12:17 AM EDT Wale Mckeon MD ECG ORDERABLES Performing Organization Address City/[facility]/ZIP Co de Phone Number MUSE SYSTEM * POCT Glucose (03/15/2019 8:13 PM EDT) Glucose, POC 134 65 - 199 mg/dL [facility] Comment: Supplemental ranges: <140 mg/dL before meals <180 mg/dL all other times of the day Blood specimen (specimen) 03/15/2019 8:13 PM EDT 03/15/2019 8:13 PM EDT Wale Mckeon MD POINT OF CARE TEST O RDERABLES [facility] [place] [address] * POCT Glucose (03/15/2019 4:58 PM EDT) Glucose, POC 109 65 - 199 mg/dL [facility] Comment: Supplemental ranges: <140 mg/dL before meals <180 mg/dL all other times of the day Blood specimen (specimen) 03/15/2019 4:58 PM EDT 03/15/2019 4:58 PM EDT Wale Mckeon MD POINT OF CARE TEST O RDEFE Performing Organization Address City/[facility]/ZIP Co de Phone Number [facility] [place] [address] * POCT Glucose (03/15/2019 11:47 AM EDT) [facility] Glucose, POC 110 65 - 199 mg/dL [facility] Comment: Supplemental ranges: <140 mg/dL before meals <180 mg/dL all other times of the day Blood specimen (specimen) 03/15/2019 11:47 AM EDT 03/15/2019 11:47 AM EDT Wale Mckeon MD POINT OF CARE TEST O EVITA Performing Organization Address [facility] Co de Phone Number [facility] [place] [address] * Troponin (03/15/2019 11:17 AM EDT) [facility] Troponin-T <0.01 0.00 - 0.00 ng/mL [facility] Comment: The 99th percentile for Troponin T is less than 0.01 ng/mL, any detectable cTnT concentration using this assay should be considered elevated. According to the third universal definition of myocardial infarction the following criteria with a clinical presentation consistent with acute myocardial ischemia meets the diagnosis for a myocardial infarction (IA). Detection of a rise and/or fall of cTnT, with at least one value greater than the 99th percentile (> or = 0.01) and with at least one of the following ?? Symptoms of ischemia ?? New or presumed new significant JG-[id number] wave (ST-T) changes or new left bundle [...] additional sample may be indicated. Reference: Third [place] Definition of Myocardial Infarction. Journal of the [employer] College [employer] 2012;60:1581-98 Blood specimen (specimen) 03/15/2019 11:17 AM EDT 03/15/2019 11:42 AM EDT Narrative Resulting Agency Comment Spec In Lab Esperanza Collier KRYSTINA CHEMISTRY ORDERABLES Performing Organization Address [facility] Co de Phone Number [facility] [place] [address] * EKG 12 Lead (03/15/2019 10:49 AM EDT) [facility] Ventricular rate 59 BPM MUSE SYSTEM Atrial Rate 59 BPM MUSE SYSTEM P-R Interval 140 ms MUSE SYSTEM QRS Duration 86 ms MUSE SYSTEM Q-T Interval 398 ms MUSE SYSTEM QTC Calculated (Bezet) 394 ms MUSE SYSTEM Calculated P [place] 13 degrees MUSE SYSTEM Calculated R [place] 42 degrees MUSE SYSTEM Calculated T [place] 49 degrees MUSE SYSTEM INTERPRETATION Sinus bradycardia Otherwise normal ECG When compared with ECG of 15-MAR-2019 07:08, No significant change was found Confirmed by MD Buchnaan Timothy ([id number]) on 03/15/2019 12:09:31 PM MUSE SYSTEM 03/15/2019 10:4 9 AM EDT 03/15/2019 12:09 PM EDT Esperanza Vicki Collier APRN ECG ORDERABLES Performing Organization Address [facility] de Phone Number MUSE SYSTEM * POCT Glucose (03/15/2019 7:57 AM EDT) [facility] Glucose, POC 114 65 - 199 mg/dL [facility] Comment: Supplemental ranges: <140 mg/dL before meals <180 mg/dL all other times of the day Blood specimen (specimen) 03/15/2019 7:57 AM EDT 03/15/2019 7:57 AM EDT Wale Mckeon MD POINT OF CARE TEST O RDERABLES Performing Organization Address [facility] Co de Phone Number [facility] [place] [address] * EKG 12 Lead (03/15/2019 7:08 AM EDT) Ventricular rate 58 BPM MUSE SYSTEM Atrial Rate 58 BPM MUSE SYSTEM P-R Interval 140 ms MUSE SYSTEM QRS Duration 90 ms MUSE SYSTEM Q-T Interval 410 ms MUSE SYSTEM QTC Calculated (Bezet) 402 ms MUSE SYSTEM Calculated P [place] 5 degrees MUSE SYSTEM Calculated R [place] 24 degrees MUSE SYSTEM Calculated T [place] 34 degrees MUSE SYSTEM INTERPRETATION Sinus bradycardia Otherwise normal ECG When compared with ECG of 14-MAR-2019 19:41, No significant change was found Confirmed by MD SOUMYA, JENNIFER ([id number]) on 03/15/2019 9:53:01 AM MUSE SYSTEM 03/15/2019 7:08 AM EDT 03/15/2019 9:53 AM EDT Siri Panchal [place] KRYSTINA ECG ORDERABLES MUSE SYSTEM * Differential, Automated (03/15/2019 5:01 AM EDT) Pathologist [facility] Neutrophil % 46.9 % [facility] Neutrophil Absolute 2.78 1.70 - 6.10 x10(3)/[facility] LABORATORY Lymph % 40.6 % [facility] Lymphocytes Abs 2.4 0.9 - 3.2 x10(3)/[facility] LABORATORY Monocyte % 7.7 % [facility] Monocyte Abs 0.5 0.3 - 0.9 x10(3)/[facility] LABORATORY Eos % 3.7 % [facility] Eosinophils Abs 0.2 0.0 - 0.4 x10(3)/[facility] LABORATORY Basophil % 0.8 % [facility] Baso Absolute 0.0 0.0 - 0.1 x10(3)/[facility] LABORATORY Immature Gran % 0.30 % [facility] Comment: Immature granulocytes(IG's)percentage and absolute count will include metamyelocytes, myelocytes, and promyelocytes. Blood smears from CBCs yielding IG's will be scanned manually for concordance. If this scan disagrees with the automated IG or if promyelocytes are noted, a manual differential will be performed. Immature Gran Absolute 0.02 0.00 - 0.04 x10(3)/[facility] LABORATORY Blood specimen (specimen) 03/15/2019 5:01 AM EDT 03/15/2019 5:12 AM EDT Narrative Resulting Agency Comment Spec In Lab Siri Bush RECORDINGS LIBRARIAN HEMATOLOGY ORDERAB LES [facility] [place] [address] * Hemogram (03/15/2019 5:01 AM EDT) White Blood Cell 5.9 4.0 - 9.5 x10(3)/[facility] LABORATORY Red Blood Cell 4.95 4.58 - 5.54 x10(6)/[facility] LABORATORY Hemoglobin 14.6 13.7 - 16.5 gm/dL [facility] Hematocrit 43.1 40.5 - 48.5 % [facility] Mean Cell Volume 87.1 82.9 - 93.1 [facility] LABORATORY Mean Cell Hemoglobin 29.5 27.5 - 32.[address] [facility] Mean Cell Hemoglobin Concentration 33.9 32.0 - 35.7 gm/dL [facility] Platelet 156 145 - 357 x10(3)/[facility] LABORATORY RDW Standard Deviation 40.2 36.0 - 45.0 [facility] LABORATORY RDW coefficient of variation 12.5 11.4 - 13.8 % [facility] Mean Platelet Volume 10.4 7.6 - 12.9 [facility] LABORATORY NRBC% auto 0.0 % [facility] NRBC Absolute 0.000 0.000 - 0.000 x10(3)/[facility] LABORATORY Blood specimen (specimen) 03/15/2019 5:01 AM EDT 03/15/2019 5:12 AM EDT Narrative Resulting Agency Comment Spec In Lab Siri Bush RECORDINGS LIBRARIAN HEMATOLOGY ORDERAB LES [facility] [place] [address] * (ABNORMAL) BMP w/fasting Glucose (03/15/2019 5:01 AM EDT) Glucose Fasting 120(H) 65 - 99 mg/dL [facility] Comment: ?Fasting* Glucose Interpretive Criteria [...] of Diabetes Mellitus, Position Statement from the [employer]. ??Diabetes Care, Volume 33, Supplement 1, Aug 2009 Blood Urea Nitrogen 11 10 - 20 mg/dL [facility] Creatinine 0.90 0.80 - 1.50 mg/dL [facility] Sodium 142 135 - 145 mmol/L [facility] Potassium 3.8 3.5 - 5.0 mmol/L [facility] Comment: Please note: ??Patients with WBC >100,000 may have falsely elevated Potassium levels. ??For accurate Potassium quantification in these patients send serum separator tube (gold top) for subsequent determinations. ??Contact the Clinical Chemistry Laboratory if there are any questions. Chloride 109(H) 98 - 107 mmol/L [facility] Carbon Dioxide 23 22 - 31 mmol/L [facility] Anion Gap 10 5 - 15 mmol/L [facility] Calcium 9.1 8.5 - 10.5 mg/dL [facility] Est Glomerular Filtration Rate 99 >=60 mL/min/1. 73 m?? [facility] Comment: The eGFR was calculated using the CKD-EPI equation. As with all creatinine based estimates of kidney function, eGFR values calculated with the CKD-EPI equation are not accurate in patients with acute kidney failure, extremes of body mass or the acutely ill. [email or web address]/[facility] eGFR 114 >=60 mL/min/1. 73 m?? [facility] Comment: The eGFR was calculated using the CKD-EPI equation. As with all creatinine based estimates of kidney function, eGFR values calculated with the CKD-EPI equation are not accurate in patients with acute kidney failure, extremes of body mass or the acutely ill. [email or web address]/[facility] Blood specimen (specimen) 03/15/2019 5:01 AM EDT 03/15/2019 5:12 AM EDT Narrative Resulting Agency Comment Spec In Lab Siri Bush APRN CHEMISTRY ORDERABL ES [facility] [address] * (ABNORMAL) Hemoglobin A1c (03/15/2019 5:01 AM EDT) Hemoglobin A1c 6.8(H) 4.3 - 5.6 % [facility] Comment: Reference Range: 4.3 - [...] Mellitus, Diabetes Care 2013; 36: Suppl. 1, E87-52 Estimated Average Glucose 148 mg/dL [facility] Comment: eAG equivalents for HbA1c [...] into estimated average glucose values. ??Diabetes Care 2008:31(8):4022-0936. Blood specimen (specimen) 03/15/2019 5:01 AM EDT 03/15/2019 5:12 AM EDT Narrative Resulting Agency Comment Spec In Lab Siri Bush APRN CHEMISTRY ORDERABL ES [facility] [place] [address] * Lipid Panel (03/15/2019 5:01 AM EDT) Cholesterol, Total 207 mg/dL [facility] Comment: Lower Risk: <200 mg/dL Average Risk: 200-239 mg/dL Higher Risk: >pc=094 mg/dL Triglyceride 256 mg/dL [facility] Comment: Average Risk/Lower Risk: <150 mg/dL Borderline High Risk: 150-199 mg/dL High Risk: 200-499 mg/dL Very High Risk: >np=861 mg/dL HDL Cholesterol 28 mg/dL [facility] Comment: Males: ?? Higher Risk: <40 mg/dL Females: ?? HIgher Risk: <50 mg/dL LDL Cholesterol 128 mg/dL [facility] Comment: Lowest Risk: <100 mg/dL Lower Risk: 100-129 mg/dL Borderline High Risk: 130-159 mg/dL High Risk: 160-189 mg/dL Very High Risk: >ls=937 mg/dL Cholesterol/HDL Ratio 7.[address] [facility] Lipid Interpretation See Note [facility] Comment: Lipid management should be guided by a patient? s ASCVD risk, goals and preferences. ACC/AHA Guidelines recommend high intensity statin if clinical ASCVD or LDL greater than or equal to 190 mg/dL. http://ELENZA.com/DXE-THR-Kqfecztoy Adults aged 40-75 with LDL 70-189 mg/dL should have their 10 year ASCVD risk estimated with the ACC/AHA ASCVD risk film printer http://tools.acc.org/TUJJT-Mboo-Eccpgodik/ Statin should be discussed if risk greater [...] Lab Siri Bush APRN CHEMISTRY ORDERABL ES [facility] [place] [address] * POCT Glucose (03/14/2019 7:50 PM EDT) Glucose, POC 123 65 - 199 mg/dL [facility] Comment: Supplemental ranges: <140 mg/dL before meals <180 mg/dL all other times of the day Blood specimen (specimen) 03/14/2019 7:50 PM EDT 03/14/2019 7:50 PM EDT Wale Mckeon MD POINT OF CARE TEST O RDERABLES Performing Organization Address [facility] Co de Phone Number [facility] [place] [address] * EKG 12 Lead (03/14/2019 7:41 PM EDT) [facility] Ventricular rate 59 BPM MUSE SYSTEM Atrial Rate 59 BPM MUSE SYSTEM P-R Interval 142 ms MUSE SYSTEM QRS Duration 80 ms MUSE SYSTEM Q-T Interval 396 ms MUSE SYSTEM QTC Calculated (Bezet) 392 ms MUSE SYSTEM Calculated P [place] 40 degrees MUSE SYSTEM Calculated R [place] 37 degrees MUSE SYSTEM Calculated T [place] 46 degrees MUSE SYSTEM INTERPRETATION Sinus bradycardia Otherwise normal ECG When compared with ECG of 14-MAR-2019 01:06, No significant change was found Confirmed by MD SOUMYA, JENNIFER ([id number]) on 03/15/2019 9:52:58 AM MUSE SYSTEM 03/14/2019 7:41 PM EDT 03/15/2019 9:52 AM EDT Wale Mckeon MD ECG ORDERABLES Performing Organization Address [facility] Co de Phone Number MUSE SYSTEM * POCT Glucose (03/14/2019 4:21 PM EDT) [facility] Glucose, POC 128 65 - 199 mg/dL [facility] Comment: Supplemental ranges: <140 mg/dL before meals <180 mg/dL all other times of the day Blood specimen (specimen) 03/14/2019 4:21 PM EDT 03/14/2019 4:21 PM EDT Wale Mckeon MD POINT OF CARE TEST O RDERABLES Performing Organization Address [facility] Co de Phone Number [facility] [place] [address] * Troponin (03/14/2019 3:10 PM EDT) [facility] Troponin-T <0.01 0.00 - 0.00 ng/mL [facility] Comment: The 99th percentile for Troponin T is less than 0.01 ng/mL, any detectable cTnT concentration using this assay should be considered elevated. According to the third universal definition of myocardial infarction the following criteria with a clinical presentation consistent with acute myocardial ischemia meets the diagnosis for a myocardial infarction (IA). Detection of a rise and/or fall of cTnT, with at least one value greater than the 99th percentile (> or = 0.01) and with at least one of the following ?? Symptoms of ischemia ?? New or presumed new significant RQ-izxllir-V wave (ST-T) changes or new left bundle [...] additional sample may be indicated. Reference: Third Walton Definition of Myocardial Infarction. Journal of the [employer] 2012;60:1581-98 Blood specimen (specimen) 03/14/2019 3:10 PM EDT 03/14/2019 3:19 PM EDT Narrative Resulting Agency Comment Spec In Lab Wale Mckeon MD CHEMISTRY ORDERABLES Performing Organization Address City/State/[facility] Co de Phone Number [facility] [place] [address] * XR Chest PA or AP 1 [...] the number below. ? Electronically signed by: Isabel Fong [facility] ([phone]), at 03/14/2019 3:46 PM Narrative 03/14/2019 3:46 PM EDT EXAMINATION: XR [...] contact the number below. Electronically signed by: Isabel Fong [facility]([phone]), at 03/14/2019 3:46 PM Ed Simpson MD IMG DX ORDERABLES * POCT Glucose (03/14/2019 11:41 AM EDT) [facility] Signature Glucose, POC 96 65 - 199 mg/dL [facility] Comment: Supplemental ranges: <140 mg/dL before meals <180 mg/dL all other times of the day Blood specimen (specimen) 03/14/2019 11:41 AM EDT 03/14/2019 11:41 AM EDT Wale Mckeon MD POINT OF CARE TEST O RDERABLES [facility] [address] * CARDIAC CATHETERIZATION (03/14/2019 10:55 AM EDT) Anatomical Region Laterality Modality Other Narrative 03/15/2019 4:29 PM EDT ?[place] ? Cardiac Catheterization/Intervention Report ? Patient Name: Coe, Romeo A. ? Procedure Date: 03/14/2019 ? A #: [id number] ? Primary Physician: Lexus Gutiérrez ? Case #: [id number] ? File Name: [id number] ? Catheterization Order Number: [id number] ? [facility] ?[facility] ? Final Report [place], [place] ? Patient Name: ? Romeo Coe ? ID#: ?[id number] ? : ?1965 ? Procedure Date: ? [...] was Urgent. The indication for ?the label printer visit is ACS less than or equal [...] Procedure Note Lexus Gutiérrez MD - 08/13/2019 [place] Cardiac Catheterization/Intervention Report Patient Name: Romeo Coe Procedure Date: 03/14/2019 A #: [id number] Primary Physician: Lexus Gutiérrez Case #: File Name: [id number] Catheterization Order Number: [id number] [facility] FinalReport [place], [place] Patient Name: Romeo Coe ID#:[id number] :1965 Procedure Date: March 14, 2019 Case [...] patient was designated as ASAClass III. The [facility] clinical frailty scale is 2: [...] procedure was Urgent. The indicationfor the label printer visit is ACS less than or equal [...] EDT) Troponin-T <0.01 0.00 - 0.00 ng/mL [facility] Comment: The 99th percentile for Troponin T is less than 0.01 ng/mL, any detectable cTnT concentration using this assay should be considered elevated. According to the third universal definition of myocardial infarction the following criteria with a clinical presentation consistent with acute myocardial ischemia meets the diagnosis for a myocardial infarction (IA). Detection of a rise and/or fall of cTnT, with at least one value greater than the 99th percentile (> or = 0.01) and with at least one of the following ?? Symptoms of ischemia ?? New or presumed new significant FN-mnqyxae-W wave (ST-T) changes or new left bundle [...] additional sample may be indicated. Reference: Third Walton Definition of Myocardial Infarction. Journal of the [employer] 2012;60:1581-98 Blood specimen (specimen) 03/14/2019 8:53 AM EDT 03/14/2019 9:06 AM EDT Narrative Resulting Agency Comment Spec In Lab Wale Mckeon MD CHEMISTRY ORDERABLES [facility] [place] [address] * (ABNORMAL) Differential, Automated (03/14/2019 8:53 AM EDT) Neutrophil % 33.7 % [facility] Neutrophil Absolute 2.11 1.70 - 6.10 x10(3)/ L [facility] Lymph % 52.4 % [facility] Lymphocytes Abs 3.3(H) 0.9 - 3.2 x10(3)/[facility] LABORATORY Monocyte % 7.6 % [facility] Monocyte Abs 0.5 0.3 - 0.9 x10(3)/ L [facility] Eos % 4.9 % [facility] Eosinophils Abs 0.3 0.0 - 0.4 x10(3)/[facility] LABORATORY Basophil % 1.1 % [facility] Baso Absolute 0.1 0.0 - 0.1 x10(3)/ L [facility] Immature Gran % 0.30 % [facility] Comment: Immature granulocytes(IG's)percentage and absolute count will include metamyelocytes, myelocytes, and promyelocytes. Blood smears from CBCs yielding IG's will be scanned manually for concordance. If this scan disagrees with the automated IG or if promyelocytes are noted, a manual differential will be performed. Immature Gran Absolute 0.02 0.00 - 0.04 x10(3)/mc L [facility] Blood specimen (specimen) 03/14/2019 8:53 AM EDT 03/14/2019 9:06 AM EDT Narrative Resulting Agency Comment Spec In Lab Ed Simpson MD HEMATOLOGY ORDERABLE S [facility] [place] [address] * Hemogram (03/14/2019 8:53 AM EDT) White Blood Cell 6.3 4.0 - 9.5 x10(3)/[facility] LABORATORY Red Blood Cell 5.11 4.58 - 5.54 x10(6)/[facility] LABORATORY Hemoglobin 14.9 13.7 - 16.5 gm/dL [facility] Hematocrit 44.2 40.5 - 48.5 % [facility] Mean Cell Volume 86.5 82.9 - 93.1 [facility] LABORATORY Mean Cell Hemoglobin 29.2 27.5 - 32.[address] [facility] Mean Cell Hemoglobin Concentration 33.7 32.0 - 35.7 gm/dL [facility] Platelet 156 145 - 357 x10(3)/[facility] LABORATORY RDW Standard Deviation 40.3 36.0 - 45.0 [facility] LABORATORY RDW coefficient of variation 12.6 11.4 - 13.8 % [facility] Mean Platelet Volume 10.7 7.6 - 12.9 [facility] LABORATORY NRBC% auto 0.0 % [facility] NRBC Absolute 0.000 0.000 - 0.000 x10(3)/[facility] LABORATORY Blood specimen (specimen) 03/14/2019 8:53 AM EDT 03/14/2019 9:06 AM EDT Narrative Resulting Agency Comment Spec In Lab Ed Simpson MD HEMATOLOGY ORDERABLE S [facility] [place] [address] * Heparin (unfractionated) Level (03/14/2019 8:53 AM EDT) Pathologist [facility] UF Heparin 0.37 IU/mL [facility] Comment: Guidelines for therapeutic unfractionated [...] MD HEMATOLOGY ORDERABLE S Performing Organization Address [facility] Co de Phone Number [facility] [place] [address] * ECHO COMPLETE (03/14/2019 8:37 AM EDT) [facility] EF 63 HEARTLAB SYSTEM Anatomical Region Laterality Modality Other 03/14/2019 Narrative 03/14/2019 8:45 AM EDT Procedure: ?Transthoracic Echocardiogram Patient: ?LAQUITA Pop ? (Age): 1965(53y) Med Rec#: ? [id number] ?Sex: ?M ? [facility] Loc[facility] ? [facility] ?Ht / Wt: ??177(cm)/101(kg) Pt. Loc: ?Adult Floor ? BSA: ?2.18 Study Date: ?? 03/14/2019 ?Pt. Type: Inpatient Tape: ? Referring: Ed Simpson Reading: Christos Buchanan ([id number]) Director [employer]: Yessi Webb [facility] Diagnosis: *Unstable angina (I20.0) BP: ? [...] E-wave Vmax ?0.6 ?m/sec ? MV deceleration dszy644.5 ?msec ? MV A-wave Vmax ?0.4 ?m/sec [...] ? Mid-Inferior ?Normal ? Mid-Inferoseptal ?Normal ? [place]-Septal ? Normal ? [place]-Anterior ? Normal ? [place]-Lateral ?Normal ? [place]-Inferior ? Normal ? [place]-Tip ?Normal ? This report has been electronically signed by: Christos Buchanan M.D. ? 03/14/2019 08:45:08 Images reviewed and interpretation verified [facility] Cardiac Ultrasound Laboratory Procedure Note Christos Buchanan MD - 03/14/2019 Procedure: Transthoracic Echocardiogram Patient: LAQUITA Pop (Age): 1965(53y) Med Rec#: [id number] Sex: M Site Loc: [facility] Ht / Wt: 177(cm)/101(kg) Pt. Loc: Adult Floor BSA: 2.18 Study Date: 03/14/2019 Pt. Type: Inpatient Tape: Referring: Ed Simpson Reading: Christos Buchanan ([id number]) Director [employer]: Yessi Webb [facility] Diagnosis: *Unstable angina (I20.0) BP: 104/58 [...] MV E-wave Vmax 0.6 m/sec MV deceleration qmzw412.5 msec MV A-wave Vmax 0.4 m/sec MV [...] Normal Mid-Posterolateral Normal Mid-Inferior Normal Mid-Inferoseptal Normal [place]-Septal Normal [place]-Anterior Normal [place]-Lateral Normal [place]-Inferior Normal [place]-Tip Normal This report has been electronically signed by: Christos Buchanan M.D. 03/14/2019 08:45:08 Images reviewed and interpretation verified [facility] Cardiac Ultrasound Laboratory Ed Simpson MD ECHO ORDERABLES * POCT Glucose (03/14/2019 7:42 AM EDT) Glucose, POC 102 65 - 199 mg/dL [facility] Comment: Supplemental ranges: <140 mg/dL before meals <180 mg/dL all other times of the day Blood specimen (specimen) 03/14/2019 7:42 AM EDT 03/14/2019 7:42 AM EDT Wale Mckeon MD POINT OF CARE TEST O RDERABLES Performing Organization Address [facility] Co de Phone Number [facility] [place] [address] * (ABNORMAL) Chloride (03/14/2019 3:28 AM EDT) Chloride 108(H) 98 - 107 mmol/L [facility] Blood specimen (specimen) 03/14/2019 3:28 AM EDT 03/14/2019 3:32 AM EDT Narrative Resulting Agency Comment Spec In Lab Wale Mckeon MD CHEMISTRY ORDERABLES Performing Organization Address [facility] Co de Phone Number [facility] [place] [address] * Troponin (03/14/2019 3:28 AM EDT) Pathologist [facility] Troponin-T <0.01 0.00 - 0.00 ng/mL [facility] Comment: The 99th percentile for Troponin T is less than 0.01 ng/mL, any detectable cTnT concentration using this assay should be considered elevated. According to the third universal definition of myocardial infarction the following criteria with a clinical presentation consistent with acute myocardial ischemia meets the diagnosis for a myocardial infarction (IA). Detection of a rise and/or fall of cTnT, with at least one value greater than the 99th percentile (> or = 0.01) and with at least one of the following ?? Symptoms of ischemia ?? New or presumed new significant YW-vmvjbnz-R wave (ST-T) changes or new left bundle [...] additional sample may be indicated. Reference: Third Walton Definition of Myocardial Infarction. Journal of the [employer] 2012;60:1581-98 Blood specimen (specimen) 03/14/2019 3:28 AM EDT 03/14/2019 3:32 AM EDT Narrative Resulting Agency Comment Spec In Lab Wale Mckeon MD CHEMISTRY ORDERABLES Performing Organization Address [facility] Co de Phone Number [facility] [place] [address] * Sodium (03/14/2019 3:28 AM EDT) Sodium 140 135 - 145 mmol/L [facility] Blood specimen (specimen) 03/14/2019 3:28 AM EDT 03/14/2019 3:32 AM EDT Narrative Resulting Agency Comment Spec In Lab Wale Mckeon MD CHEMISTRY ORDERABLES Performing Organization Address [facility] Phone Number [facility] [place] [address] * Potassium (03/14/2019 3:28 AM EDT) Pathologist [facility] Potassium 3.7 3.5 - 5.0 mmol/L [facility] Comment: Please note: ??Patients with [...] Mckeon MD CHEMISTRY ORDERABLES Performing Organization Address [facility] de Phone Number [facility] [place] [address] * Heparin (unfractionated) Level (03/14/2019 2:46 AM EDT) UF Heparin 0.57 IU/mL [facility] Comment: Guidelines for therapeutic unfractionated [...] MD HEMATOLOGY ORDERABLE S Performing Organization Address City/State/[facility] Co de Phone Number [facility] [place] [address] * (ABNORMAL) Differential, Automated (03/14/2019 1:50 AM EDT) Neutrophil % 38.9 % [facility] Neutrophil Absolute 3.10 1.70 - 6.10 x10(3)/mc L [facility] Lymph % 49.6 % [facility] Lymphocytes Abs 4.0(H) 0.9 - 3.2 x10(3)/mc L [facility] Monocyte % 6.3 % [facility] Monocyte Abs 0.5 0.3 - 0.9 x10(3)/mc L [facility] Eos % 4.1 % [facility] Eosinophils Abs 0.3 0.0 - 0.4 x10(3)/mc L [facility] Basophil % 0.8 % [facility] Baso Absolute 0.1 0.0 - 0.1 x10(3)/mc L [facility] Immature Gran % 0.30 % [facility] Comment: Immature granulocytes(IG's)percentage and absolute count will include metamyelocytes, myelocytes, and promyelocytes. Blood smears from CBCs yielding IG's will be scanned manually for concordance. If this scan disagrees with the automated IG or if promyelocytes are noted, a manual differential will be performed. Immature Gran Absolute 0.02 0.00 - 0.04 x10(3)/mc L [facility] Blood specimen (specimen) 03/14/2019 1:50 AM EDT 03/14/2019 2:04 AM EDT Narrative Resulting Agency Comment Spec In Lab Ed Simpson MD HEMATOLOGY ORDERABLE S Performing Organization Address City/State/[facility] Co de Phone Number [facility] [place] [address] * Hemogram (03/14/2019 1:50 AM EDT) White Blood Cell 8.0 4.0 - 9.5 x10(3)/[facility] LABORATORY Red Blood Cell 4.98 4.58 - 5.54 x10(6)/[facility] LABORATORY Hemoglobin 15.0 13.7 - 16.5 gm/dL [facility] Hematocrit 42.4 40.5 - 48.5 % [facility] Mean Cell Volume 85.1 82.9 - 93.[address] [facility] Mean Cell Hemoglobin 30.1 27.5 - 32.[address] [facility] Mean Cell Hemoglobin Concentration 35.4 32.0 - 35.7 gm/dL [facility] Platelet 192 145 - 357 x10(3)/[facility] LABORATORY RDW Standard Deviation 39.9 36.0 - 45.0 [facility] LABORATORY RDW coefficient of variation 12.9 11.4 - 13.8 % [facility] Mean Platelet Volume 11.7 7.6 - 12.[address] [facility] NRBC% auto 0.0 % [facility] NRBC Absolute 0.000 0.000 - 0.000 x10(3)/mcL [facility] Blood specimen (specimen) 03/14/2019 1:50 AM EDT 03/14/2019 2:04 AM EDT Narrative Resulting Agency Comment Spec In Lab Ed Simpson MD HEMATOLOGY ORDERABLE S Performing Organization Address [facility] Co de Phone Number [facility] [place] [address] * pro-Brain Natriuretic Peptide (03/14/2019 1:50 AM EDT) NT-proBNP 12 <=125 pg/mL [facility] Blood specimen (specimen) 03/14/2019 1:50 AM EDT 03/14/2019 2:04 AM EDT Narrative Resulting Agency Comment Spec In Lab Ed Simpson MD CHEMISTRY ORDERABLES Performing Organization Address [facility] Co de Phone Number [facility] [place] [address] * Magnesium (03/14/2019 1:50 AM EDT) Magnesium 0.81 0.69 - 1.07 mmol/L [facility] Blood specimen (specimen) 03/14/2019 1:50 AM EDT 03/14/2019 2:04 AM EDT Narrative Resulting Agency Comment Spec In Lab Ed Simpson MD CHEMISTRY ORDERABLES Performing Organization Address [facility] Co de Phone Number [facility] [place] [address] * (ABNORMAL) BMP w/fasting Glucose (03/14/2019 1:50 AM EDT) Glucose Fasting 110(H) 65 - 99 mg/dL [facility] Comment: ?Fasting* Glucose Interpretive Criteria [...] of Diabetes Mellitus, Position Statement from the [employer]. ??Diabetes Care, Volume 33, Supplement 1, Aug 2009 Blood Urea Nitrogen 10 10 - 20 mg/dL [facility] Creatinine 1.00 0.80 - 1.50 mg/dL [facility] Sodium Not Perf 135 - 145 [facility] Potassium Not Perf 3.5 - 5.0 [facility] Comment: Called by: [facility], Read back by: Keeley Arias, Date/Time:03/14/19 03:03. Please note: ??Patients with WBC >100,000 may have falsely elevated Potassium levels. ??For accurate Potassium quantification in these patients send serum separator tube (gold top) for subsequent determinations. ??Contact the Clinical Chemistry Laboratory if there are any questions. Chloride Not Perf 98 - 107 [facility] Carbon Dioxide 22 22 - 31 mmol/L [facility] Anion Gap Unable to Calculate 5 - 15 mmol/L [facility] Calcium 8.5 8.5 - 10.5 mg/dL [facility] Est Glomerular Filtration Rate 87 >=60 mL/min/1 .73 m?? [facility] Comment: The eGFR was calculated using the CKD-EPI equation. As with all creatinine based estimates of kidney function, eGFR values calculated with the CKD-EPI equation are not accurate in patients with acute kidney failure, extremes of body mass or the acutely ill. [email or web address] eGFR 101 >=60 mL/min/1 .73 m?? [facility] Comment: The eGFR was calculated using the CKD-EPI equation. As with all creatinine based estimates of kidney function, eGFR values calculated with the CKD-EPI equation are not accurate in patients with acute kidney failure, extremes of body mass or the acutely ill. [email or web address] Blood specimen (specimen) 03/14/2019 1:50 AM EDT 03/14/2019 2:04 AM EDT Narrative Resulting Agency Comment Spec In Lab Ed Simpson MD CHEMISTRY ORDERABLES Performing Organization Address [facility] Co de Phone Number [facility] [place] [address] * EKG 12 Lead (03/14/2019 1:06 AM EDT) Ventricular rate 63 BPM MUSE SYSTEM Atrial Rate 63 BPM MUSE SYSTEM P-R Interval 146 ms MUSE SYSTEM QRS Duration 84 ms MUSE SYSTEM Q-T Interval 384 ms MUSE SYSTEM QTC Calculated (Bezet) 392 ms MUSE SYSTEM Calculated P [place] 28 degrees MUSE SYSTEM Calculated R [place] 21 degrees MUSE SYSTEM Calculated T [place] 18 degrees MUSE SYSTEM INTERPRETATION Normal sinus rhythm Normal ECG When compared with ECG of 13-SEP-2017 07:49, No significant change was found Confirmed by MD NAZANIN, DEISY ([id number]) on 03/14/2019 9:49:11 AM MUSE SYSTEM 03/14/2019 1:06 AM EDT 03/14/2019 9:49 AM EDT Ed Simpson MD ECG ORDERABLES Performing Organization Address [facility] de Phone Number MUSE [...] Procedural area)1133 (OCT Unhold - Provider: Admin Adt)2099 (Given - [...] - Reason: Transfer to a Procedural area)1133 ([facility] Unhold - Provider: Admin Adt) cyclobenzaprine (FLEXERIL) tablet 10 mg 10 mg, Oral, NIGHTLY, First dose on Thu03/14/19 at 2100, Until Discontinued, Routine 1003 ([facility] Hold - Provider: Admin Adt [...] Nichols RN) 0639 (Given - Provider: Keeley Arias, VERO)1118 (Given - Provider: Jacqueline Montes De Oca [...] comment - Comment: held per Dr. Simpson V.Wai for hypotension) metoprolol tartrate (LOPRESSOR) tablet 25 [...] Arias RN)0643 (Not Given - Provider: Keeley Arisa RN - Reason: See comment - Comment: [...] De Oca RN)203 (Given - Provider: Beverly Chan, VERO) 0849 [...] - Reason: Transfer to a Procedural area)1133 ([facility] Unhold - Provider: Admin Adt) [...] - Reason: Transfer to a Procedural area)1133 ([facility] Unhold - Provider: Admin Adt) [...] last 24 to 72 hours., Routine 1003 ([facility] Hold - Provider: Admin Adt - Reason: Transfer to a Procedural area)1133 ([facility] Unhold - Provider: Admin Adt) nitroGLYcerin 100 mcg/mL intracoronary dilution (CANCELED) ONCE PRN, Starting on Thu03/14/19 at 1030, Until Thu03/14/19 at 1107, Cath (Intra-Procedure), Routine 1030 (Given - Provider: Lexus Gutiérrez MD) oxyCODONE (ROXICODONE) immediate release tablet 10 mg 10 mg, Oral, 4 TIMES DAILY PRN, Starting on Thu03/14/19 at 0219, Until Thu03/16/19 at 1756, Moderate-severe Pain, Routine 025 (Given - Provider: Keeley Arias, VERO)1003 ([facility] Hold - Provider: Admin Adt - Reason: Transfer to a Procedural area)1133 ([facility] Unhold - Provider: Admin Adt)1950 [...] provided on this medication record., Routine 1003 ([facility] Hold - Provider: Admin Adt - Reason: Transfer to a Procedural area)1133 ([facility] Unhold - Provider: Admin Adt) sodium chloride 0.9 % (flush) flush 5-20 mL 5-20 mL, Intravenous, EVERY 1 MIN PRN, Starting on Thu03/14/19 at 0219, Until Thu03/16/19 at 1756, flush, Flush pertains to all indwelling lines. Flush per protocol found in the job aid using the link provided on this medication record., Routine 1003 ([facility] Hold - Provider: Admin Adt - Reason: Transfer to a Procedural area)1133 ([facility] Unhold - Provider: Admin Adt) [...] Routine documented in this encounter Care Teams Transmission Superintendent Relationship Specialty Start Date End Date Coni Lim MD [address] [place] [address] PCP - General 07/16/10 documented as of this encounter
--- OUTSIDE RECORDS SUMMARY | 2024-08-05 17:20 | XMS_ITS | Encounter Summary ---
Author Organization [facility] Address [facility] [place] [address] Care Team Providers Care Mba Internship Name Role Phone Coni Lim MD Primary Care Provider [phone] Encounter Details Date Type Department Care Team (Late st Contact Info) Description 03/13/2019 11:10 PM EDT Ancillary Procedure Radiology Library at [facility] [place] [place] [address] Wale Mckeon MD [facility] [place] [place] [address] Social History Tobacco Use Types Packs/Day Years [...] DX Chest (03/13/2019 11:09 PM EDT) Narrative [facility] - 03/13/2019 11:09 PM EDT This exam is auto-finalizing. It's purpose is for storage only. Wale Mckeon MD G FILM LIBRARY ORD ERABLES [facility] [place], [place] documented in this encounter Visit Diagnoses Not on filedocumented in this encounter Care Teams Mba Internship Relationship Specialty Start Date End Date Coni Lim MD [address] [place] [address] PCP - General 07/16/10 documented as of this encounter
--- OUTSIDE RECORDS SUMMARY | 2024-08-05 17:20 | XMS_ITS | Encounter Summary ---
Author Organization [facility] Address [facility] [place] [address] Care Team Providers Care Autistic Teacher Name Role Phone Coni Lim MD Primary Care Provider [phone] Encounter Details Date Type Department Care Team (Late st Contact Info) Description 03/13/2019 Telephone Cardiology at [address] [address] Syed Solorio MD [facility] [place] [address] Social History Tobacco Use Types Packs/Day Years [...] Initial Contact Date: 03/13/19 Initial contact time: [phone] Referring Provider: Heide Patient Location: [facility] Presenting Symptoms per OSH: Stable angina SOB [...] or examined this patient. Syed Solorio MD [employer] Sales Manager PGY4 P: [phone] documented in this encounter Plan of Treatment Not on file documented as of this encounter Visit Diagnoses Not on filedocumented in this encounter Care Teams Autistic Teacher Relationship Specialty Start Date End Date Coni Lim MD [address] [place] [address] PCP - General 07/16/10 documented as of this encounter
--- OUTSIDE RECORDS SUMMARY | 2024-08-05 17:20 | XMS_ITS | Encounter Summary ---
Author Organization [facility] Address [facility] [place] [address] Care Team Providers Care Biztalk Software Developer Name Role Phone Coni Lim MD Primary Care Provider [phone] Reason for Visit * Auth/Cert Specialty Diagnoses / Procedures Referred By Ruby t Referred To Contact Diagnoses ACS (acute coronary syndrome) UNSTABLE ANGINA Referral ID Status Reason Start Date Expiration Date Visits Re quested Visits Authorized [id number] 1 1 Encounter Details Date Type Department Care Team (Late st Contact Info) Description 03/14/2019 1:01 PM EDT - 03/14/2019 2:01 PM EDT [place] [id number] Lexus Gutiérrez MD [facility] [place] [address] CARDIAC CATHETERIZATION Social History Tobacco Use Types [...] Romeo Coe Patient Age: 53 y.o. Language: Omani Race: White Ethnicity: Not nor Admit date: [...] Contact Information: MD Esperanza Solis, KRYSTINA Bush, DIGITAL MEDIA DIRECTOR [phone] Discharge Diagnoses (Hospital Problems) and Secondary Diagnoses [...] TIA and GERD who was transferred from [facility] with a diagnosis of UAP. ?? He [...] called. ?? His last admission to [facility] was in Aug 2017 when he presented [...] Heparin gtt and transferred to [facility] for cardiac cath. Hospital Course: Undifferentiated Chest Pain - Coronary Vasospasm/Microvessel angina vs Non- Cardiac Chest Pain Romeo Coe is a 53 yo M transferred from [facility] for evaluation of unstable angina. Troponins negative. [...] PF, Split 07/30/2013 ??? Influenza Vaccine (Novel) [id number], Injectable 05/24/2009 ??? Influenza Vaccine w/Preservative, Split [...] appointments: During 8am-5pm Thursday through Thursday call [phone] to speak with a nurse in the cardiology clinic All other times call [phone] and ask to speak to the desk clerks supervisor manager of investigations. Return to work: Ok to resume, no heavy lifting for one week (nothing over 10 lbs) Driving: No driving for 48 hours after catheterization. Follow up Appointments: PCP Coni Lim MD/Keo Ballard [phone] Your follow up appointment is scheduled for March 25, 2019 at 10 45 am Cardiology- Dr. Lawson - [phone] (First apt at [facility], then you will be seen at [facility] thereafter).Your follow up appointment is scheduled for Saturday April 13, 2019 at 1:15 pm Home oxygen therapy: N/A Arrangements for VNA/home care: none Discharge References/Attachments None Esperanza Collier APRN Cardiovascular Medicine Pager [phone] 03/16/2019 documented in this encounter Discharge Instructions * Discharge Instructions* Esperanza Collier APRN - 03/16/2019 3:00 PM EDT Call your doctor if: Chest pain, shortness of breath, pain or swelling in legs occurs. If you have non-emergent questions between now and the time of your follow up appointments: During 8am-5pm Thursday through Thursday call [phone] to speak with a nurse in the cardiology clinic All other times call [phone] and ask to speak to the desk clerks supervisor manager of investigations. Return to work: Ok to resume, no heavy lifting for one week (nothing over 10 lbs) Driving: No driving for 48 hours after catheterization. Follow up Appointments: PCP Coni Lim MD/Keo Ballrad [phone] Your follow up appointment is scheduled for March 25, 2019 at 10 45 am Cardiology- Dr. Lawson - [phone] (First apt at [facility], then you will be seen at [facility] thereafter).Your follow up appointment is scheduled for [...] Progress Note Patient Name: Romeo Coe Service: TRANSPORT COMPANY MANAGER / PA Responsible Attending: Wale Mckeon MD [...] Full code Discussed with MD Esperanza Brar [facility] Cardiovascular Medicine Pager [phone] 03/16/2019 Attending Waste Water Worker Addendum: This patient was seen in [...] discharge on medical therapies. Wale Mckeon MD, [facility] Staff Waste Water Worker pager [phone] * Jacqueline Montes De Oca RN - [...] Progress Note Patient Name: Romeo Coe Service: TRANSPORT COMPANY MANAGER / PA Responsible Attending: Wale Mckeon MD Reason for continued hospitalization: Evaluation and management of unstable angina S/p [facility] Medication adjustment Active Problems: Active Hospital Problems [...] Full code Discussed with MD Esperanza Brar [facility] Cardiovascular Medicine Pager [phone] 03/15/2019 Attending Waste Water Worker Addendum: This patient was seen in [...] limited us thus far. Wale Mckeon MD, [facility] Staff Waste Water Worker pager [phone] * Wale Mckeon MD - 03/14/2019 9:23 AM EDT Images from the original note were not included. Inpatient Cardiology Progress Note Patient Name: Romeo Coe Service: TRANSPORT COMPANY MANAGER / PA Responsible Attending: Wale Mckeon MD Reason for continued hospitalization: Evaluation and management of unstable angina Awaiting [facility] today Active Problems: Active Hospital Problems Diagnosis ??? ACS (acute coronary syndrome) Resolved Hospital Problems No resolved problems to display. Interval History: Admitted overnight in the setting of unstable angina. Troponins negative. TTE with preserved EF at 63% and no WMA. Awaiting [facility] today. Review of Systems: Review of Systems [...] Full code Discussed with MD Siri Brar, DIGITAL MEDIA DIRECTOR Pager [phone] 03/14/2019 Attending Waste Water Worker Addendum: This patient was seen in [...] regimen today (include vasodilator) Wale Mckeon MD, [facility] Staff Waste Water Worker pager [phone] documented in this encounter H&P Notes * [...] TIA and GERD who was transferred from [facility] with a diagnosis of UAP. He presented [...] was called. His last admission to [facility] was in Aug 2017 when he presented [...] on Heparin gtt and transferred to [facility] for cardiac cath. Past Medical History: Past [...] of Onset ??? Myocardial Infarction Father 46 [place], CABG ??? Heart Disease Father ??? Diabetes [...] file Gets together: Not on file Attends sikh service: Not on file Active member of [...] Lives with and daughter at home in [place], [place]. He is disabled now. He used [...] edema . Pulses palpable, no calf tenderness Neuro/CAREGIVERS NON MEDICAL: AAO x 3, No evident deficits Skin/Integumentary: [...] PCIs since 2011. Last Cath at [facility] in Aug 2017 that showed the patency [...] Notes * Plan of Care - Beverly Chna RN - 03/16/2019 5:20 AM EDT Problem: [...] EVALUATION NOTE: OUTCOME SUMMARY: Patient to labor mediator today. No interventions. Right radial cath site [...] TIA and GERD who was transferred from [facility] with a diagnosis of UAP Past Medical History: Diagnosis Date ??? Allergy ??? CAD (coronary artery disease), non-obstructive 05/31/2012 ??? Depression ??? DM (diabetes mellitus) 05/31/2012 ??? Dyslipidemia 05/31/2012 ??? GERD (gastroesophageal reflux disease) 05/31/2012 ??? HTN (hypertension) 05/31/2012 ??? Hx-TIA (transient ischemic attack) 06/03/2012 ??? Smoker 05/31/2012 Hospitalizations Within the Past 30 Days: no [facility] admits in last 30 days. Anticipated Length Of Stay (If known): 1-3 days Current Decision-Making Capacity: Patient is A&Ox4 and able to make all medical decisions Advance Care Planning: Full Code Not in EPIC.This author discussed ADs with patient and offered advance directive booklet and forms,patient deferred will discuss with family at a later time. [place] and [place] of guardianship explained. If AD's have not been completed then Spouse Dasia would be surrogate decision maker per [place] surrogate decision making law. Current Coping/Education/Information Needs: Current coping questions and concerns have been addressed. Current Functional Ability: assist of staff Functional Status Prior to Admission: independent with ADLs, driving, no DME used at baseline. Home Environment: lives in 2 level house, bedroom downstairs, no stairs to enter from outside. [address] [facility] [address] Social & Family Supports/Community Resources: lives with spouse and daughter Extended Emergency Contact Information Primary Emergency Contact: Dasia Coe Address: [address] [place] [address] [facility] Relation: Spouse Health/Prescription Coverage: Primary Insurance: MEDICARE Secondary Insurance: N/A Prescription Coverage: Yes Preferred Pharmacy: [id number] - [place] [id number] [facility] [address] [place] [id number] Other: none Primary Care Provider: Coni Lim MD [phone] Patient/Caregiver Goals of Treatment: return to previous [...] of care planning. Rashmi Simmons, VERO Nurse Infertility Nurse Pager [phone] * Op Note - Lexus Gutiérrez MD - 03/14/2019 10:54 AM EDT [facility] Operative Note Patient Name: Romeo Coe : [id number] MR#: [id number] Case Date: 03/14/2019 Surgeon: Surgeon(s) and Role: * Lexus Gutiérrez MD - Primary * Satnam Leger MD - Fellow Preoperative diagnosis: ?CAD Postoperative diagnosis: No new obstructive lesions from prior cath Procedure(s) (LRB): CARDIAC CATHETERIZATION (N/A) CORONARY ANGIOGRAPHY; W [facility],POSSIBLE PCI (N/A) Access: Radial provided good support for procedure. 6 Fr RRA with TR band in place, good hemostasis. The patient tolerated the procedures smoothly and was transferred from the cardiac catheterization lab to the next level of care in stable condition, without pain. No evident early complications. Results discussed with service certified tumor registrar Dr Mckeon, and with the patient. He did not have family that he preferred we call. He needs to be connected with a referring certified tumor registrar locally (seen at [facility]). A time-out was conducted prior to the [...] as expected OUTCOME EVALUATION NOTE: OUTCOME SUMMARY: Dena had a good night. Arrived from [facility] hospital on Heparin drip. Denied chest pain [...] further details. Ed Simpson MD 03/14/2019 Pager [phone] documented in this encounter Plan of Treatment [...] please contact the number below. Esperanza Collier DIGITAL MEDIA DIRECTOR IMG CT ORDERABLES * POCT Glucose (03/16/2019 11:34 AM EDT) Glucose, POC 106 65 - 199 mg/dL [facility] Comment: Supplemental ranges: <140 mg/dL before meals <180 mg/dL all other times of the day Blood specimen (specimen) 03/16/2019 11:34 AM EDT 03/16/2019 11:34 AM EDT Wale Mckeon MD POINT OF CARE TEST O RDERABLES Performing Organization Address City/[facility]/ZIP Co de Phone Number [facility] [place] [address] * POCT Glucose (03/16/2019 7:38 AM EDT) Glucose, POC 102 65 - 199 mg/dL [facility] Comment: Supplemental ranges: <140 mg/dL before meals <180 mg/dL all other times of the day Blood specimen (specimen) 03/16/2019 7:38 AM EDT 03/16/2019 7:38 AM EDT Wale Mckeon MD POINT OF CARE TEST O RDERABLES Performing Organization Address [facility] Co de Phone Number [facility] [place] [address] * EKG 12 Lead (03/16/2019 7:07 AM EDT) Ventricular rate 59 BPM MUSE SYSTEM Atrial Rate 59 BPM MUSE SYSTEM P-R Interval 148 ms MUSE SYSTEM QRS Duration 88 ms MUSE SYSTEM Q-T Interval 408 ms MUSE SYSTEM QTC Calculated (Bezet) 403 ms MUSE SYSTEM Calculated P Maynard 7 degrees MUSE SYSTEM Calculated R Maynard 23 degrees MUSE SYSTEM Calculated T Maynard 40 degrees MUSE SYSTEM INTERPRETATION Sinus bradycardia Otherwise normal ECG When compared with ECG of 15-MAR-2019 20:23, No significant change was found Confirmed by MD SOUMYA, JENNIFER ([id number]) on 03/16/2019 8:30:39 AM MUSE SYSTEM 03/16/2019 7:07 AM EDT 03/16/2019 8:30 AM EDT Siri Bush APRN ECG ORDERABLES Performing Organization Address City/[facility] Co de Phone Number MUSE SYSTEM * Differential, Automated (03/16/2019 5:07 AM EDT) Neutrophil % 48.9 % [facility] Neutrophil Absolute 3.25 1.70 - 6.10 x10(3)/mcL [facility] Lymph % 38.1 % [facility] Lymphocytes Abs 2.5 0.9 - 3.2 x10(3)/[facility] Monocyte % 8.0 % [facility] Monocyte Abs 0.5 0.3 - 0.9 x10(3)/[facility] Eos % 4.2 % [facility] Eosinophils Abs 0.3 0.0 - 0.4 x10(3)/[facility] Basophil % 0.5 % [facility] Baso Absolute 0.0 0.0 - 0.1 x10(3)/[facility] Immature Gran % 0.30 % [facility] Comment: Immature granulocytes(IG's)percentage and absolute count will include metamyelocytes, myelocytes, and promyelocytes. Blood smears from CBCs yielding IG's will be scanned manually for concordance. If this scan disagrees with the automated IG or if promyelocytes are noted, a manual differential will be performed. Immature Gran Absolute 0.02 0.00 - 0.04 x10(3)/[facility] Blood specimen (specimen) 03/16/2019 5:07 AM EDT 03/16/2019 5:24 AM EDT Narrative Resulting Agency Comment Spec In Lab Siri Bush APRN HEMATOLOGY ORDERAB LES [facility] [place] [address] * Hemogram (03/16/2019 5:07 AM EDT) White Blood Cell 6.6 4.0 - 9.5 x10(3)/[facility] Red Blood Cell 5.33 4.58 - 5.54 x10(6)/[facility] Hemoglobin 15.6 13.7 - 16.5 gm/dL [facility] Hematocrit 45.4 40.5 - 48.5 % [facility] Mean Cell Volume 85.2 82.9 - 93.1 fL [facility] Mean Cell Hemoglobin 29.3 27.5 - 32.1 pg [facility] Mean Cell Hemoglobin Concentration 34.4 32.0 - 35.7 gm/dL [facility] Platelet 154 145 - 357 x10(3)/[facility] RDW Standard Deviation 38.3 36.0 - 45.0 [facility]ATORY RDW coefficient of variation 12.5 11.4 - 13.8 % [facility] Mean Platelet Volume 10.9 7.6 - 12.9 [facility]ORATORY NRBC% auto 0.0 % [facility] NRBC Absolute 0.000 0.000 - 0.000 x10(3)/[facility] Blood specimen (specimen) 03/16/2019 5:07 AM EDT 03/16/2019 5:24 AM EDT Narrative Resulting Agency Comment Spec In Lab Siri Bush APRN HEMATOLOGY ORDERAB LES [facility] [place] [address] * (ABNORMAL) BMP w/fasting Glucose (03/16/2019 5:07 AM EDT) Glucose Fasting 119(H) 65 - 99 mg/dL [facility] [...] of Diabetes Mellitus, Position Statement from the [place] Diabetes Association. ??Diabetes Care, Volume 33, Supplement 1, Aug 2009 Blood Urea Nitrogen 10 10 - 20 mg/dL [facility] Creatinine 0.91 0.80 - 1.50 mg/dL [facility] Sodium 138 135 - 145 mmol/L [facility] Potassium 3.6 3.5 - 5.0 mmol/L [facility] Comment: Please note: ??Patients with WBC >100,000 may have falsely elevated Potassium levels. ??For accurate Potassium quantification in these patients send serum separator tube (gold top) for subsequent determinations. ??Contact the Clinical Chemistry Laboratory if there are any questions. Chloride 106 98 - 107 mmol/L [facility] Carbon Dioxide 20(L) 22 - 31 mmol/L [facility] Anion Gap 12 5 - 15 mmol/L [facility] Calcium 9.2 8.5 - 10.5 mg/dL [facility] Est Glomerular Filtration Rate 97 >=60 mL/min/1. 73 m?? [facility] Comment: The eGFR was calculated using the CKD-EPI equation. As with all creatinine based estimates of kidney function, eGFR values calculated with the CKD-EPI equation are not accurate in patients with acute kidney failure, extremes of body mass or the acutely ill. http://[employer]DHnkf eGFR 113 >=60 mL/min/1. 73 m?? [facility] Comment: The eGFR was calculated using the CKD-EPI equation. As with all creatinine based estimates of kidney function, eGFR values calculated with the CKD-EPI equation are not accurate in patients with acute kidney failure, extremes of body mass or the acutely ill. http://[employer]DHMCnkf Blood specimen (specimen) 03/16/2019 5:07 AM EDT 03/16/2019 5:24 AM EDT Narrative Resulting Agency Comment Spec In Lab Siri Bush APRN CHEMISTRY ORDERABL ES [facility] [place] [address] * EKG 12 Lead (03/15/2019 8:23 PM EDT) Ventricular rate 65 BPM MUSE SYSTEM Atrial Rate 65 BPM MUSE SYSTEM P-R Interval 140 ms MUSE SYSTEM QRS Duration 86 ms MUSE SYSTEM Q-T Interval 384 ms MUSE SYSTEM QTC Calculated (Bezet) 399 ms MUSE SYSTEM Calculated P Maynard 16 degrees MUSE SYSTEM Calculated R Maynard 39 degrees MUSE SYSTEM Calculated T Maynard 37 degrees MUSE SYSTEM INTERPRETATION Normal sinus rhythm Normal ECG When compared with ECG of 15-MAR-2019 10:49, No significant change was found Confirmed by MD SOUMYA, JENNIFER ([id number]) on 03/16/2019 12:17:34 AM MUSE SYSTEM 03/15/2019 8:23 PM EDT 03/16/2019 12:17 AM EDT Wale Mckeon MD ECG ORDERABLES Performing Organization Address [facility]/ZIP Co de Phone Number MUSE SYSTEM * POCT Glucose (03/15/2019 8:13 PM EDT) Glucose, POC 134 65 - 199 mg/dL [facility] Comment: Supplemental ranges: <140 mg/dL before meals <180 mg/dL all other times of the day Blood specimen (specimen) 03/15/2019 8:13 PM EDT 03/15/2019 8:13 PM EDT Wale Mckeon MD POINT OF CARE TEST O RDERABLES [facility] [place] [address] * POCT Glucose (03/15/2019 4:58 PM EDT) Glucose, POC 109 65 - 199 mg/dL [facility] Comment: Supplemental ranges: <140 mg/dL before meals <180 mg/dL all other times of the day Blood specimen (specimen) 03/15/2019 4:58 PM EDT 03/15/2019 4:58 PM EDT Wale Mckeon MD POINT OF CARE TEST O RDEFE Performing Organization Address City/[facility]/ZIP Co de Phone Number [facility] [place] [address] * POCT Glucose (03/15/2019 11:47 AM EDT) Pathologist [facility] Glucose, POC 110 65 - 199 mg/dL [facility] Comment: Supplemental ranges: <140 mg/dL before meals <180 mg/dL all other times of the day Blood specimen (specimen) 03/15/2019 11:47 AM EDT 03/15/2019 11:47 AM EDT Wale Mckeon MD POINT OF CARE TEST O EVITA Performing Organization Address [facility] Co de Phone Number [facility] [place] [address] * Troponin (03/15/2019 11:17 AM EDT) [facility] Troponin-T <0.01 0.00 - 0.00 ng/mL [facility] Comment: The 99th percentile for Troponin T is less than 0.01 ng/mL, any detectable cTnT concentration using this assay should be considered elevated. According to the third universal definition of myocardial infarction the following criteria with a clinical presentation consistent with acute myocardial ischemia meets the diagnosis for a myocardial infarction (VT). Detection of a rise and/or fall of cTnT, with at least one value greater than the 99th percentile (> or = 0.01) and with at least one of the following ?? Symptoms of ischemia ?? New or presumed new significant NT-jdqdkne-C wave (ST-T) changes or new left bundle [...] additional sample may be indicated. Reference: Third [place] Definition of Myocardial Infarction. Journal of the [employer] College of Cardiology 2012;60:1581-98 Blood specimen (specimen) 03/15/2019 11:17 AM EDT 03/15/2019 11:42 AM EDT Narrative Resulting Agency Comment Spec In Lab Esperanza Collier KRYSTINA CHEMISTRY ORDERABLES Performing Organization Address [facility] Co de Phone Number [facility] [place] [address] * EKG 12 Lead (03/15/2019 10:49 AM EDT) Ventricular rate 59 BPM MUSE SYSTEM Atrial Rate 59 BPM MUSE SYSTEM P-R Interval 140 ms MUSE SYSTEM QRS Duration 86 ms MUSE SYSTEM Q-T Interval 398 ms MUSE SYSTEM QTC Calculated (Bezet) 394 ms MUSE SYSTEM Calculated P Maynard 13 degrees MUSE SYSTEM Calculated R Maynard 42 degrees MUSE SYSTEM Calculated T Maynard 49 degrees MUSE SYSTEM INTERPRETATION Sinus bradycardia Otherwise normal ECG When compared with ECG of 15-MAR-2019 07:08, No significant change was found Confirmed by MD Buchanan Timothy ([id number]) on 03/15/2019 12:09:31 PM MUSE SYSTEM 03/15/2019 10:4 9 AM EDT 03/15/2019 12:09 PM EDT Esperanza Cohen Amira FLAHERTY ECG ORDERABLES Performing Organization Address [facility] de Phone Number MUSE SYSTEM * POCT Glucose (03/15/2019 7:57 AM EDT) Glucose, POC 114 65 - 199 mg/dL [facility] Comment: Supplemental ranges: <140 mg/dL before meals <180 mg/dL all other times of the day Blood specimen (specimen) 03/15/2019 7:57 AM EDT 03/15/2019 7:57 AM EDT Wale Mckeon MD POINT OF CARE TEST O RDERABLES Performing Organization Address [facility] Co de Phone Number [facility] [place] [address] * EKG 12 Lead (03/15/2019 7:08 AM EDT) Ventricular rate 58 BPM MUSE SYSTEM Atrial Rate 58 BPM MUSE SYSTEM P-R Interval 140 ms MUSE SYSTEM QRS Duration 90 ms MUSE SYSTEM Q-T Interval 410 ms MUSE SYSTEM QTC Calculated (Bezet) 402 ms MUSE SYSTEM Calculated P Maynard 5 degrees MUSE SYSTEM Calculated R Maynard 24 degrees MUSE SYSTEM Calculated T Maynard 34 degrees MUSE SYSTEM INTERPRETATION Sinus bradycardia Otherwise normal ECG When compared with ECG of 14-MAR-2019 19:41, No significant change was found Confirmed by MD SOUMYA, JENNIFER ([id number]) on 03/15/2019 9:53:01 AM MUSE SYSTEM 03/15/2019 7:08 AM EDT 03/15/2019 9:53 AM EDT Siri Panchal [place] KRYSTINA ECG ORDERABLES MUSE SYSTEM * Differential, Automated (03/15/2019 5:01 AM EDT) Pathologist [facility] Neutrophil % 46.9 % [facility] Neutrophil Absolute 2.78 1.70 - 6.10 x10(3)/[facility] Lymph % 40.6 % [facility] Lymphocytes Abs 2.4 0.9 - 3.2 x10(3)/[facility] Monocyte % 7.7 % [facility] Monocyte Abs 0.5 0.3 - 0.9 x10(3)/[facility] Eos % 3.7 % [facility] Eosinophils Abs 0.2 0.0 - 0.4 x10(3)/[facility] Basophil % 0.8 % [facility] Baso Absolute 0.0 0.0 - 0.1 x10(3)/[facility] Immature Gran % 0.30 % [facility] Comment: Immature granulocytes(IG's)percentage and absolute count will include metamyelocytes, myelocytes, and promyelocytes. Blood smears from CBCs yielding IG's will be scanned manually for concordance. If this scan disagrees with the automated IG or if promyelocytes are noted, a manual differential will be performed. Immature Gran Absolute 0.02 0.00 - 0.04 x10(3)/[facility] Blood specimen (specimen) 03/15/2019 5:01 AM EDT 03/15/2019 5:12 AM EDT Narrative Resulting Agency Comment Spec In Lab Siri Bush DIGITAL MEDIA DIRECTOR HEMATOLOGY ORDERAB LES [facility] [place], [place] [address] * Hemogram (03/15/2019 5:01 AM EDT) White Blood Cell 5.9 4.0 - 9.5 x10(3)/[facility] LABORATORY Red Blood Cell 4.95 4.58 - 5.54 x10(6)/[facility] Hemoglobin 14.6 13.7 - 16.5 gm/dL [facility] Hematocrit 43.1 40.5 - 48.5 % [facility] Mean Cell Volume 87.1 82.9 - 93.1 fL [facility] Mean Cell Hemoglobin 29.5 27.5 - 32.1 pg [facility] Mean Cell Hemoglobin Concentration 33.9 32.0 - 35.7 gm/dL [facility] Platelet 156 145 - 357 x10(3)/[facility] LABORATORY RDW Standard Deviation 40.2 36.0 - 45.0 [facility] LABORATORY RDW coefficient of variation 12.5 11.4 - 13.8 % [facility] Mean Platelet Volume 10.4 7.6 - 12.9 [facility] LABORATORY NRBC% auto 0.0 % [facility] NRBC Absolute 0.000 0.000 - 0.000 x10(3)/[facility] LAB[facility] Blood specimen (specimen) 03/15/2019 5:01 AM EDT 03/15/2019 5:12 AM EDT Narrative Resulting Agency Comment Spec In Lab Siri Bush DIGITAL MEDIA DIRECTOR HEMATOLOGY ORDERAB LES [facility] [place] [address] * (ABNORMAL) BMP w/fasting Glucose (03/15/2019 5:01 AM EDT) Glucose Fasting 120(H) 65 - 99 mg/dL [facility] [...] of Diabetes Mellitus, Position Statement from the [place] Diabetes Association. ??Diabetes Care, Volume 33, Supplement 1, Aug 2009 Blood Urea Nitrogen 11 10 - 20 mg/dL [facility] Creatinine 0.90 0.80 - 1.50 mg/dL [facility] Sodium 142 135 - 145 mmol/L [facility] Potassium 3.8 3.5 - 5.0 mmol/L [facility] Comment: Please note: ??Patients with WBC >100,000 may have falsely elevated Potassium levels. ??For accurate Potassium quantification in these patients send serum separator tube (gold top) for subsequent determinations. ??Contact the Clinical Chemistry Laboratory if there are any questions. Chloride 109(H) 98 - 107 mmol/L [facility] Carbon Dioxide 23 22 - 31 mmol/L [facility] Anion Gap 10 5 - 15 mmol/L [facility] Calcium 9.1 8.5 - 10.5 mg/dL [facility] Est Glomerular Filtration Rate 99 >=60 mL/min/1. 73 m?? [facility] Comment: The eGFR was calculated using the CKD-EPI equation. As with all creatinine based estimates of kidney function, eGFR values calculated with the CKD-EPI equation are not accurate in patients with acute kidney failure, extremes of body mass or the acutely ill. http://[employer] eGFR 114 >=60 mL/min/1. 73 m?? [facility] Comment: The eGFR was calculated using the CKD-EPI equation. As with all creatinine based estimates of kidney function, eGFR values calculated with the CKD-EPI equation are not accurate in patients with acute kidney failure, extremes of body mass or the acutely ill. http://[employer] Blood specimen (specimen) 03/15/2019 5:01 AM EDT 03/15/2019 5:12 AM EDT Narrative Resulting Agency Comment Spec In Lab Siri Bush APRN CHEMISTRY ORDERABL ES [facility] [place] [address] * (ABNORMAL) Hemoglobin A1c (03/15/2019 5:01 AM [...] Mellitus, Diabetes Care 2013; 36: Suppl. 1, H27-62 Estimated Average Glucose 148 mg/dL [facility] [...] into estimated average glucose values. ??Diabetes Care 2008:31(8):0240-8799. Blood specimen (specimen) 03/15/2019 5:01 AM EDT 03/15/2019 5:12 AM EDT Narrative Resulting Agency Comment Spec In Lab Siri Bush APRN CHEMISTRY ORDERABL ES [facility] [place] [address] * Lipid Panel (03/15/2019 5:01 AM EDT) Cholesterol, Total 207 mg/dL [facility] Comment: Lower Risk: <200 mg/dL Average Risk: 200-239 mg/dL Higher Risk: >uj=285 mg/dL Triglyceride 256 mg/dL [facility] Comment: Average Risk/Lower Risk: <150 mg/dL Borderline High Risk: 150-199 mg/dL High Risk: 200-499 mg/dL Very High Risk: >so=112 mg/dL HDL Cholesterol 28 mg/dL [facility] Comment: Males: ?? Higher Risk: <40 mg/dL Females: ?? HIgher Risk: <50 mg/dL LDL Cholesterol 128 mg/dL [facility] Comment: Lowest Risk: <100 mg/dL Lower Risk: 100-129 mg/dL Borderline High Risk: 130-159 mg/dL High Risk: 160-189 mg/dL Very High Risk: >yv=352 mg/dL Cholesterol/HDL Ratio 7.4 ratio [facility] Lipid Interpretation See Note [facility] Comment: Lipid management should be guided by a patient? s ASCVD risk, goals and preferences. ACC/AHA Guidelines recommend high intensity statin if clinical ASCVD or LDL greater than or equal to 190 mg/dL. http://[employer]/HZX-WCR-Qxhiyldkw Adults aged 40-75 with LDL 70-189 mg/dL should have their 10 year ASCVD risk estimated with the ACC/AHA ASCVD risk estimator lumber http://tools.acc.org/OHGHG-Vfst-Pjhicwxkm/ Statin should be discussed if risk greater [...] Lab Siri Bush APRN CHEMISTRY ORDERABL ES [facility] [place] [address] * POCT Glucose (03/14/2019 7:50 PM EDT) Glucose, POC 123 65 - 199 mg/dL [facility] Comment: Supplemental ranges: <140 mg/dL before meals <180 mg/dL all other times of the day Blood specimen (specimen) 03/14/2019 7:50 PM EDT 03/14/2019 7:50 PM EDT Wale Mckeon MD POINT OF CARE TEST O RDERABLES Performing Organization Address [facility] Co de Phone Number [facility] [place] [address] * EKG 12 Lead (03/14/2019 7:41 PM EDT) [facility] Ventricular rate 59 BPM MUSE SYSTEM Atrial Rate 59 BPM MUSE SYSTEM P-R Interval 142 ms MUSE SYSTEM QRS Duration 80 ms MUSE SYSTEM Q-T Interval 396 ms MUSE SYSTEM QTC Calculated (Bezet) 392 ms MUSE SYSTEM Calculated P Maynard 40 degrees MUSE SYSTEM Calculated R Maynard 37 degrees MUSE SYSTEM Calculated T Maynard 46 degrees MUSE SYSTEM INTERPRETATION Sinus bradycardia Otherwise normal ECG When compared with ECG of 14-MAR-2019 01:06, No significant change was found Confirmed by MD SOUMYA, JENNIFER ([id number]) on 03/15/2019 9:52:58 AM MUSE SYSTEM 03/14/2019 7:41 PM EDT 03/15/2019 9:52 AM EDT Wale Mckeon MD ECG ORDERABLES Performing Organization Address [facility] de Phone Number MUSE SYSTEM * POCT Glucose (03/14/2019 4:21 PM EDT) [facility] Glucose, POC 128 65 - 199 mg/dL [facility] Comment: Supplemental ranges: <140 mg/dL before meals <180 mg/dL all other times of the day Blood specimen (specimen) 03/14/2019 4:21 PM EDT 03/14/2019 4:21 PM EDT Wale Mckeon MD POINT OF CARE TEST O RDERABLES Performing Organization Address [facility] Co de Phone Number [facility] [place] [address] * Troponin (03/14/2019 3:10 PM EDT) [facility] Troponin-T <0.01 0.00 - 0.00 ng/mL [facility] Comment: The 99th percentile for Troponin T is less than 0.01 ng/mL, any detectable cTnT concentration using this assay should be considered elevated. According to the third universal definition of myocardial infarction the following criteria with a clinical presentation consistent with acute myocardial ischemia meets the diagnosis for a myocardial infarction (VT). Detection of a rise and/or fall of cTnT, with at least one value greater than the 99th percentile (> or = 0.01) and with at least one of the following ?? Symptoms of ischemia ?? New or presumed new significant UA-pyxvwqs-S wave (ST-T) changes or new left bundle [...] additional sample may be indicated. Reference: Third [place] Definition of Myocardial Infarction. Journal of the [employer] College of Cardiology 2012;60:1581-98 Blood specimen (specimen) 03/14/2019 3:10 PM EDT 03/14/2019 3:19 PM EDT Narrative Resulting Agency Comment Spec In Lab Wale Mckeon MD CHEMISTRY ORDERABLES Performing Organization Address City/State/[facility] Co de Phone Number [facility] [place] [address] * XR Chest PA or AP 1 [...] * POCT Glucose (03/14/2019 11:41 AM EDT) [facility] Signature Glucose, POC 96 65 - 199 mg/dL [facility] Comment: Supplemental ranges: <140 mg/dL before meals <180 mg/dL all other times of the day Blood specimen (specimen) 03/14/2019 11:41 AM EDT 03/14/2019 11:41 AM EDT Wale Mckeon MD POINT OF CARE TEST O RDERABLES [facility] [place] [address] * CARDIAC CATHETERIZATION (03/14/2019 10:55 AM EDT) Anatomical Region Laterality Modality Other Narrative 03/15/2019 4:29 PM EDT ?[facility] ? Cardiac Catheterization/Intervention Report ? Patient Name: Coe, Romeo A. ? Procedure Date: 03/14/2019 ? A #: [id number] ? Primary Physician: Lexus Gutiérrez ? Case #: [id number] ? File Name: [id number] ? Catheterization Order Number: [id number] ? [facility] ? Final Report [place], [place] ? Patient Name: ? Romeo Coe ? ID#: ?[id number] ? : ?1965 ? Procedure Date: ? [...] was Urgent. The indication for ?the labor mediator visit is ACS less than or equal [...] Procedure Note Lexus Gutiérrez MD - 08/13/2019 [facility] Cardiac Catheterization/Intervention Report Patient Name: Romeo Coe Procedure Date: 03/14/2019 A #: [id number] Primary Physician: Lexus Gutiérrez Case #: File Name: [id number] Catheterization Order Number: [id number] [facility] FinalReport [place], [place] Patient Name: Romeo Coe ID#:[id number] :1965 Procedure Date: March 14, 2019 Case [...] designated as ASAClass III. The [facility] clinical frailty scale is 2: Well. Diagnostic Tests: Prior Coronary Angiography: Prior coronary angiography was performed on 09/13/2017 andshowed non-obstructive CAD. LV ejection fraction within 6 months is63%. Electrocardiography: EKG was assessed by ECG. EKG was Normal. Medications Prior to Procedure: ASA, Beta Agatha and Statin. Indications for Diagnostic Cath: The priority of the diagnostic procedure was Urgent. The indicationfor the labor mediator visit is ACS less than or equal [...] EDT) Troponin-T <0.01 0.00 - 0.00 ng/mL [facility] Comment: The 99th percentile for Troponin T is less than 0.01 ng/mL, any detectable cTnT concentration using this assay should be considered elevated. According to the third universal definition of myocardial infarction the following criteria with a clinical presentation consistent with acute myocardial ischemia meets the diagnosis for a myocardial infarction (VT). Detection of a rise and/or fall of cTnT, with at least one value greater than the 99th percentile (> or = 0.01) and with at least one of the following ?? Symptoms of ischemia ?? New or presumed new significant SL-xjnwclk-S wave (ST-T) changes or new left bundle [...] additional sample may be indicated. Reference: Third [place] Definition of Myocardial Infarction. Journal of the [employer] College of Cardiology 2012;60:1581-98 Blood specimen (specimen) 03/14/2019 8:53 AM EDT 03/14/2019 9:06 AM EDT Narrative Resulting Agency Comment Spec In Lab Wale Mckeon MD CHEMISTRY ORDERABLES [facility] [place] [address] * (ABNORMAL) Differential, Automated (03/14/2019 8:53 AM EDT) Neutrophil % 33.7 % [facility] Neutrophil Absolute 2.11 1.70 - 6.10 x10(3)/ L [facility] Lymph % 52.4 % [facility] Lymphocytes Abs 3.3(H) 0.9 - 3.2 x10(3)/[facility] LABORATORY Monocyte % 7.6 % [facility] Monocyte Abs 0.5 0.3 - 0.9 x10(3)/ L [facility] Eos % 4.9 % [facility] Eosinophils Abs 0.3 0.0 - 0.4 x10(3)/[facility] LABORATORY Basophil % 1.1 % [facility] Baso Absolute 0.1 0.0 - 0.1 x10(3)/ L [facility] Immature Gran % 0.30 % [facility] Comment: Immature granulocytes(IG's)percentage and absolute count will include metamyelocytes, myelocytes, and promyelocytes. Blood smears from CBCs yielding IG's will be scanned manually for concordance. If this scan disagrees with the automated IG or if promyelocytes are noted, a manual differential will be performed. Immature Gran Absolute 0.02 0.00 - 0.04 x10(3)/mc L [facility] Blood specimen (specimen) 03/14/2019 8:53 AM EDT 03/14/2019 9:06 AM EDT Narrative Resulting Agency Comment Spec In Lab Ed Simpson MD HEMATOLOGY ORDERABLE S [facility] [place] [address] * Hemogram (03/14/2019 8:53 AM EDT) White Blood Cell 6.3 4.0 - 9.5 x10(3)/[facility] LABORATORY Red Blood Cell 5.11 4.58 - 5.54 x10(6)/[facility] LABOR[facility]ORY Hemoglobin 14.9 13.7 - 16.5 gm/dL [facility] Hematocrit 44.2 40.5 - 48.5 % [facility] Mean Cell Volume 86.5 82.9 - 93.1 fL [facility] Mean Cell Hemoglobin 29.2 27.5 - 32.1 pg [facility] Mean Cell Hemoglobin Concentration 33.7 32.0 - 35.7 gm/dL [facility] Platelet 156 145 - 357 x10(3)/[facility] LABORATORY RDW Standard Deviation 40.3 36.0 - 45.0 [facility] LABORATORY RDW coefficient of variation 12.6 11.4 - 13.8 % [facility] Mean Platelet Volume 10.7 7.6 - 12.9 [facility] LABORATORY NRBC% auto 0.0 % [facility] NRBC Absolute 0.000 0.000 - 0.000 x10(3)/[facility] LABOR[facility] Blood specimen (specimen) 03/14/2019 8:53 AM EDT 03/14/2019 9:06 AM EDT Narrative Resulting Agency Comment Spec In Lab Ed Simpson MD HEMATOLOGY ORDERABLE S [facility] [place] [address] * Heparin (unfractionated) Level (03/14/2019 8:53 AM EDT) Pathologist [facility] UF Heparin 0.37 IU/mL [facility] Comment: Guidelines for therapeutic unfractionated [...] MD HEMATOLOGY ORDERABLE S Performing Organization Address [facility]/State/[facility] Co de Phone Number [facility] [place] [address] * ECHO COMPLETE (03/14/2019 8:37 AM EDT) [facility] EF 63 HEARTLAB SYSTEM Anatomical Region Laterality Modality Other 03/14/2019 Narrative 03/14/2019 8:45 AM EDT Procedure: ?Transthoracic Echocardiogram Patient: ?LAQUITA DOHERTY Kiesha ? (Age): 1965(53y) Med Rec#: ? [id number] ?Sex: ?M ? [facility] ? [facility] ?Ht / Wt: ??177(cm)/101(kg) Pt. Loc: ?Adult Floor ? BSA: ?2.18 Study Date: ?? 03/14/2019 ?Pt. Type: Inpatient Tape: ? Referring: Ed Simpson Reading: Christos Buchanan ([id number]) Clothes Ironer: Yessi Webb [facility] Diagnosis: *Unstable angina (I20.0) BP: ? [...] E-wave Vmax ?0.6 ?m/sec ? MV deceleration [id number] ?msec ? MV A-wave Vmax ?0.4 ?m/sec [...] ? Mid-Inferior ?Normal ? Mid-Inferoseptal ?Normal ? [place]-Septal ? Normal ? [place]-Anterior ? Normal ? [place]-Lateral ?Normal ? [place]-Inferior ? Normal ? [place]-Tip ?Normal ? This report has been electronically signed by: Christos Buchanan M.D. ? 03/14/2019 08:45:08 Images reviewed and interpretation verified [facility] Cardiac Ultrasound Laboratory Procedure Note Christos Buchanan MD - 03/14/2019 Procedure: Transthoracic Echocardiogram Patient: LAQUITA Pop DOB(Age): 1965(53y) Med Rec#: [id number] Sex: M Site Loc: [facility] Ht / Wt: 177(cm)/101(kg) Pt. Loc: Adult Floor BSA: 2.18 Study Date: 03/14/2019 Pt. Type: Inpatient Tape: Referring: Ed Simpson Reading: Christos Buchanan ([id number]) Clothes Ironer: Yessi Webb [facility] Diagnosis: *Unstable angina (I20.0) BP: 104/58 [...] MV E-wave Vmax 0.6 m/sec MV deceleration [id number] msec MV A-wave Vmax 0.4 m/sec MV [...] Normal Mid-Posterolateral Normal Mid-Inferior Normal Mid-Inferoseptal Normal [place]-Septal Normal [place]-Anterior Normal [place]-Lateral Normal [place]-Inferior Normal [place]-Tip Normal This report has been electronically signed by: Christos Buchanan M.D. 03/14/2019 08:45:08 Images reviewed and interpretation verified [facility] Cardiac Ultrasound Laboratory Ed Simpson MD ECHO ORDERABLES * POCT Glucose (03/14/2019 7:42 AM EDT) Glucose, POC 102 65 - 199 mg/dL [facility] Comment: Supplemental ranges: <140 mg/dL before meals <180 mg/dL all other times of the day Blood specimen (specimen) 03/14/2019 7:42 AM EDT 03/14/2019 7:42 AM EDT Wale Mckeon MD POINT OF CARE TEST O RDERABLES Performing Organization Address [facility] Co de Phone Number [facility] [place] [address] * (ABNORMAL) Chloride (03/14/2019 3:28 AM EDT) Chloride 108(H) 98 - 107 mmol/L [facility] Blood specimen (specimen) 03/14/2019 3:28 AM EDT 03/14/2019 3:32 AM EDT Narrative Resulting Agency Comment Spec In Lab Wale Mckeon MD CHEMISTRY ORDERABLES Performing Organization Address [facility] Co de Phone Number [facility] [place] [address] * Troponin (03/14/2019 3:28 AM EDT) Troponin-T <0.01 0.00 - 0.00 ng/mL [facility] Comment: The 99th percentile for Troponin T is less than 0.01 ng/mL, any detectable cTnT concentration using this assay should be considered elevated. According to the third universal definition of myocardial infarction the following criteria with a clinical presentation consistent with acute myocardial ischemia meets the diagnosis for a myocardial infarction (VT). Detection of a rise and/or fall of cTnT, with at least one value greater than the 99th percentile (> or = 0.01) and with at least one of the following ?? Symptoms of ischemia ?? New or presumed new significant VK-hbxtgdj-I wave (ST-T) changes or new left bundle [...] additional sample may be indicated. Reference: Third [place] Definition of Myocardial Infarction. Journal of the [employer] College of Cardiology 2012;60:1581-98 Blood specimen (specimen) 03/14/2019 3:28 AM EDT 03/14/2019 3:32 AM EDT Narrative Resulting Agency Comment Spec In Lab Wale Mckeon MD CHEMISTRY ORDERABLES Performing Organization Address [facility] Co de Phone Number [facility] [place] [address] * Sodium (03/14/2019 3:28 AM EDT) Sodium 140 135 - 145 mmol/L [facility] Blood specimen (specimen) 03/14/2019 3:28 AM EDT 03/14/2019 3:32 AM EDT Narrative Resulting Agency Comment Spec In Lab Wale Mckeon MD CHEMISTRY ORDERABLES Performing Organization Address [facility] Phone Number [facility] [place] [address] * Potassium (03/14/2019 3:28 AM EDT) Potassium 3.7 3.5 - 5.0 mmol/L [facility] [...] Mckeon MD CHEMISTRY ORDERABLES Performing Organization Address [facility] Co de Phone Number [facility] [place] [address] * Heparin (unfractionated) Level (03/14/2019 2:46 AM EDT) UF Heparin 0.57 IU/mL [facility] Comment: Guidelines for therapeutic unfractionated [...] MD HEMATOLOGY ORDERABLE S Performing Organization Address City/State/[facility] Co de Phone Number [facility] [place] [address] * (ABNORMAL) Differential, Automated (03/14/2019 1:50 AM EDT) Neutrophil % 38.9 % [facility] Neutrophil Absolute 3.10 1.70 - 6.10 x10(3)/mc L [facility] Lymph % 49.6 % [facility] Lymphocytes Abs 4.0(H) 0.9 - 3.2 x10(3)/mc L [facility] Monocyte % 6.3 % [facility] Monocyte Abs 0.5 0.3 - 0.9 x10(3)/mc L [facility] Eos % 4.1 % [facility] Eosinophils Abs 0.3 0.0 - 0.4 x10(3)/mc L [facility] Basophil % 0.8 % [facility] Baso Absolute 0.1 0.0 - 0.1 x10(3)/mc L [facility] Immature Gran % 0.30 % [facility] Comment: Immature granulocytes(IG's)percentage and absolute count will include metamyelocytes, myelocytes, and promyelocytes. Blood smears from CBCs yielding IG's will be scanned manually for concordance. If this scan disagrees with the automated IG or if promyelocytes are noted, a manual differential will be performed. Immature Gran Absolute 0.02 0.00 - 0.04 x10(3)/mc L [facility] Blood specimen (specimen) 03/14/2019 1:50 AM EDT 03/14/2019 2:04 AM EDT Narrative Resulting Agency Comment Spec In Lab Ed Simpson MD HEMATOLOGY ORDERABLE S Performing Organization Address City/State/[facility] Co de Phone Number [facility] [place] [address] * Hemogram (03/14/2019 1:50 AM EDT) White Blood Cell 8.0 4.0 - 9.5 x10(3)/[facility] LABORATORY Red Blood Cell 4.98 4.58 - 5.54 x10(6)/[facility] LABORATORY Hemoglobin 15.0 13.7 - 16.5 gm/dL [facility] Hematocrit 42.4 40.5 - 48.5 % [facility] Mean Cell Volume 85.1 82.9 - 93.1 fL [facility] Mean Cell Hemoglobin 30.1 27.5 - 32.1 pg [facility] Mean Cell Hemoglobin Concentration 35.4 32.0 - 35.7 gm/dL [facility] Platelet 192 145 - 357 x10(3)/[facility] LABORATORY RDW Standard Deviation 39.9 36.0 - 45.0 [facility] LABORATORY RDW coefficient of variation 12.9 11.4 - 13.8 % [facility] Mean Platelet Volume 11.7 7.6 - 12.9 fL [facility] NRBC% auto 0.0 % [facility] NRBC Absolute 0.000 0.000 - 0.000 x10(3)/mcL [facility] Blood specimen (specimen) 03/14/2019 1:50 AM EDT 03/14/2019 2:04 AM EDT Narrative Resulting Agency Comment Spec In Lab Ed Simpson MD HEMATOLOGY ORDERABLE S Performing Organization Address [facility]/ZIP Co de Phone Number [facility] [place] [address] * pro-Brain Natriuretic Peptide (03/14/2019 1:50 AM EDT) NT-proBNP 12 <=125 pg/mL [facility] Blood specimen (specimen) 03/14/2019 1:50 AM EDT 03/14/2019 2:04 AM EDT Narrative Resulting Agency Comment Spec In Lab Ed Simpson MD CHEMISTRY ORDERABLES Performing Organization Address [facility] Co de Phone Number [facility] [place] [address] * Magnesium (03/14/2019 1:50 AM EDT) Pathologist [facility] Magnesium 0.81 0.69 - 1.07 mmol/L [facility] Blood specimen (specimen) 03/14/2019 1:50 AM EDT 03/14/2019 2:04 AM EDT Narrative Resulting Agency Comment Spec In Lab Ed Simpson MD CHEMISTRY ORDERABLES Performing Organization Address [facility] Co de Phone Number [facility] [place] [address] * (ABNORMAL) BMP w/fasting Glucose (03/14/2019 1:50 AM EDT) Glucose Fasting 110(H) 65 - 99 mg/dL [facility] [...] of Diabetes Mellitus, Position Statement from the [place] Diabetes Association. ??Diabetes Care, Volume 33, Supplement 1, Aug 2009 Blood Urea Nitrogen 10 10 - 20 mg/dL [facility] Creatinine 1.00 0.80 - 1.50 mg/dL [facility] Sodium Not Perf 135 - 145 [facility] Potassium Not Perf 3.5 - 5.0 [facility] Comment: Called by: [facility], Read back by: Keeley Arias, Date/Time:03/14/19 03:03. Please note: ??Patients with WBC >100,000 may have falsely elevated Potassium levels. ??For accurate Potassium quantification in these patients send serum separator tube (gold top) for subsequent determinations. ??Contact the Clinical Chemistry Laboratory if there are any questions. Chloride Not Perf 98 - 107 [facility] Carbon Dioxide 22 22 - 31 mmol/L [facility] Anion Gap Unable to Calculate 5 - 15 mmol/L [facility] Calcium 8.5 8.5 - 10.5 mg/dL [facility] Est Glomerular Filtration Rate 87 >=60 mL/min/1 .73 m?? [facility] Comment: The eGFR was calculated using the CKD-EPI equation. As with all creatinine based estimates of kidney function, eGFR values calculated with the CKD-EPI equation are not accurate in patients with acute kidney failure, extremes of body mass or the acutely ill. http://[email or web address] eGFR 101 >=60 mL/min/1 .73 m?? [facility] Comment: The eGFR was calculated using the CKD-EPI equation. As with all creatinine based estimates of kidney function, eGFR values calculated with the CKD-EPI equation are not accurate in patients with acute kidney failure, extremes of body mass or the acutely ill. http://[email or web address] Blood specimen (specimen) 03/14/2019 1:50 AM EDT 03/14/2019 2:04 AM EDT Narrative Resulting Agency Comment Spec In Lab Ed Simpson MD CHEMISTRY ORDERABLES Performing Organization Address [facility] Co de Phone Number [facility] [place] [address] * EKG 12 Lead (03/14/2019 1:06 AM EDT) Ventricular rate 63 BPM MUSE SYSTEM Atrial Rate 63 BPM MUSE SYSTEM P-R Interval 146 ms MUSE SYSTEM QRS Duration 84 ms MUSE SYSTEM Q-T Interval 384 ms MUSE SYSTEM QTC Calculated (Bezet) 392 ms MUSE SYSTEM Calculated P Maynard 28 degrees MUSE SYSTEM Calculated R Maynard 21 degrees MUSE SYSTEM Calculated T Maynard 18 degrees MUSE SYSTEM INTERPRETATION Normal sinus rhythm Normal ECG When compared with ECG of 13-SEP-2017 07:49, No significant change was found Confirmed by MD NAZANIN, DEISY ([id number]) on 03/14/2019 9:49:11 AM MUSE SYSTEM 03/14/2019 1:06 AM EDT 03/14/2019 9:49 AM EDT Ed Simpson MD ECG ORDERABLES Performing Organization Address [facility] Co de Phone Number MUSE SYSTEM [...] Reason: Transfer to a Procedural area)1133 ([facility] Unhold - Provider: Admin Adt) glucose [...] Reason: Transfer to a Procedural area)1133 ([facility] Unhold - Provider: Admin Adt) [...] Reason: Transfer to a Procedural area)1133 ([facility] Unhold - Provider: Admin Adt) [...] Reason: Transfer to a Procedural area)1133 ([facility] Unhold - Provider: Admin Adt) nitroGLYcerin 100 mcg/mL intracoronary dilution (CANCELED) ONCE PRN, Starting on Thu03/14/19 at 1030, Until Thu03/14/19 at 1107, Cath (Intra-Procedure), Routine 1030 (Given - Provider: Lexus Gutiérrze MD) oxyCODONE (ROXICODONE) immediate release tablet 10 mg 10 mg, Oral, 4 TIMES DAILY PRN, Starting on Thu03/14/19 at 0219, Until Thu03/16/19 at 1756, Moderate-severe Pain, Routine 0255 (Given - Provider: Keeley Arias, RN)1003 ([facility] Hold - Provider: Admin Adt - Reason: Transfer to a Procedural area)1133 ([facility] Unhold - Provider: Admin Adt)1950 [...] on this medication record., Routine 1003 ([facility] Hold - Provider: Admin Adt - Reason: Transfer to a Procedural area)1133 ([facility] Unhold - Provider: Admin Adt) sodium chloride 0.9 % (flush) flush 5-20 mL 5-20 mL, Intravenous, EVERY 1 MIN PRN, Starting on Thu03/14/19 at 0219, Until Thu03/16/19 at 1756, flush, Flush pertains to all indwelling lines. Flush per protocol found in the job aid using the link provided on this medication record., Routine 1003 ([facility] Hold - Provider: Admin Adt - Reason: Transfer to a Procedural area)1133 ([facility] Unhold - Provider: Admin Adt) [...] Routine documented in this encounter Care Teams [employer] Software Developer Relationship Specialty Start Date End Date Coni Lim MD [address] [place] [address] PCP - General 07/16/10 documented as of this encounter
--- OUTSIDE RECORDS SUMMARY | 2024-08-05 17:21 | XMS_ITS | Encounter Summary ---
Author Organization [facility] [place] [address] Care Team Providers Care Client Portfolio Manager Name Role Phone Coni Lim MD Primary Care Provider [phone] Encounter Details Date Type Department Care Team (Late st Contact Info) Description 08/25/2017 Telephone Cardiology at [address] [phone] Zarina Jiang Social History Tobacco Use Types [...] his stents were replaced in [facility] and he didn't feel he needed to be in the trial anymore. I asked the patient to complete the survey based on his chest pain and he refused. He withdrew from the study. documented in this encounter Plan of Treatment Not on file documented as of this encounter Visit Diagnoses Not on filedocumented in this encounter Care Teams Client Portfolio Manager Relationship Specialty Start Date End Date Coni Lim MD [address] [place] [address] PCP - General 07/16/10 documented as of this encounter
--- OUTSIDE RECORDS SUMMARY | 2024-08-05 17:21 | XMS_ITS | Encounter Summary ---
Author Organization [facility] [place] [address] Care Team Providers Care Addiction Professional Name Role Phone Coni Lim MD Primary Care Provider [phone] Reason for Visit * Reason Comments Chest Pain * Auth/Cert Specialty Diagnoses / Procedures Referred By Contsigifredo t Referred To Contact Diagnoses Unstable angina chest pain Referral ID Status Reason Start Date Expiration Date Visits Re quested Visits Authorized [id number] 1 1 Encounter Details Date Type Department Care Team (Late st Contact Info) Description 09/12/2017 12:10 PM EST - 09/14/2017 11:12 AM EST Emergency [place] [address] Buster Doherty, [facility] [place] [address] Christos Buchanan MD [facility] [place] [address] Coronary artery disease, angina presence unspecified, unspecified vessel or lesion type, unspecified whether [place] or transplanted heart; Atherosclerosis of [place] coronary artery with unstable angina pectoris, unspecified whether [place] gosh[place] or transplanted heart Discharge Disposition: Home Social [...] Romeo Coe Patient Age: 52 y.o. Language: Faroese Race: White Ethnicity: Not nor Admit date: [...] please contact your inpatient physician through the [facility] Engineer/Conductor . Issues afterhours and on weekends will be handled by the labor arbitrator hearing office on-call. Discharge Diagnoses (Hospital Problems) and Secondary [...] restenosis addressed with LAD stent angioplasty at [facility] in January 2014 (ABSORB Stent) [...] patient to come to the hospital today. Tariff Publishing Agent is Dr. Vyas. ?? Currently, he watches [...] symptoms. He will follow-up with his car repairman, Dr. Vyas, approximately 1 week as an [...] PF, Split 07/30/2013 ??? Influenza Vaccine (Novel) [id number], Injectable 05/24/2009 ??? Influenza Vaccine w/Preservative, Split [...] Discharge References/Attachments PCI (PERCUTANEOUS CORONARY INTERVENTION): POST-OP (GUAT[place]ALAN) documented in this encounter Discharge Instructions * [...] PCP [address] / [place] [address] 09/22/2017, 10:30 AM Florian Ling MD, Tariff Publishing Agent [place], [place] Your Inpatient Doctor(s) at [facility]: Christos Buchanan MD Daniel Storms, MD Sean Li, MD Jeffrey R Wunderlich, MD Your Primary Care Provider: Coni Lim MD [address] / [place] [address] For questions regarding this document or issues relating to this hospitalization on the Medical Service, please contact your inpatient physician through the [facility] Engineer/Conductor . Issues afterhours and on weekends will be handled by the Hospitalist staff on-call. * Attachments The following attachments cannot be sent through Care Everywhere. * PCI (PERCUTANEOUS CORONARY INTERVENTION): POST-OP ([place]AN) documented in this encounter Medications at Time [...] Pierson MD, PGY-1 Cardiology Service Pager # [phone] * Aida Dietrich MSW - 09/13/2017 2:23 [...] copy of notice made and given to patient/loan servicing representative. Original notice to be scanned into [...] 09/12/2017 5:31 PM EST [facility] s/p chest [...] Buchanan MD PCP: Coni Lim MD PCP#: [phone] CC: Chest Pain Patient Active Problem List [...] restenosis addressed with LAD stent angioplasty at [facility] in January 2014 (ABSORB Stent) [...] patient to come to the hospital today. Tariff Publishing Agent is Dr. Vyas. Currently, he watches his [...] of Onset ??? Myocardial Infarction Father 46 SC, CABG ??? Diabetes Mother ??? Hypertension Mother [...] son (age 18 months), daughter 11 in [place], [place]. Takes care of his mother who has dementia and he takes her to dialysis. is disabled. Has grown daughter who is 29 years old. 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 Physical Exam: Vitals: Most Recent Vitals: 09/12/17 [...] restenosis addressed with LAD stent angioplasty at [facility] in January 2014 (ABSORB Stent) [...] days ago. Patient has contacted his car repairman who advised to presentto the ED. He [...] Emergency Medicine *This note was dictated with Dafiti software. Molly Mayer MD Resident 09/12/17 0171 Associated attestation - Buster Doherty DO - [...] Within the Past 30 Days: None at [facility], nor at outside hospitals, per pt's report. 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 I've been disabled for five years due to Fibromyalgia and Arthritis. Home Environment: Lives with his , Dasia in [place], [place]. Social & Family Supports/Community Resources: , Friends, neighbors Dasia Coe (Spouse) [address] [place] [phone] (H) [phone] (M) Behavioral Health History: Per pt report, has Anxiety and Depression, (on Cymbalta and Wellbutrin). Substance Use/Abuse: Current every day smoker; 1-5 cigarettes a day. EtOH: None. Illicit Drug Use: Marijuana every day, medical use. Other Pertinent/Service Specific Information: None Health/Prescription Coverage: Primary Insurance: MEDICARE PART A & B Secondary Insurance: MEDICAID [place] Prescription Coverage: Yes, has Silver Script. Preferred Pharmacy: [id number] - [facility], [place] - [address] [facility] [address] ? Not a 24 hour pharmacy; exact hours not known Other: None Primary Care Provider: Coni Lim MD [phone] Patient/Caregiver Goals of Treatment: To return home and to his normal activities. Potential Needs for Transition of Care: Rehab/SNF: Pt has never been a pt in a rehab setting. Home Health: [facility] in the past (after right [...] transition of care planning. TIMBO Barrett Pager: [phone] * Plan of Care - Keisha Mae [...] tele. Cont to monitor. PLAN MOVING FORWARD: labor employment associate echo INDIVIDUALIZED FALL PREVENTION INTERVENTIONS: Patient-specific fall [...] month of chest pressure, told by car repairman that if he decided to be seen [...] METABOLIC PANEL Routine 09/14/2017 3:40 AM EST OPERATOR CATALYST CONCENTRATION SCAN 09/14/2017 12:00 AM EST POCT GLUCOSE Routine 09/13/2017 7:50 PM EST POCT GLUCOSE Routine 09/13/2017 4:58 PM EST ECHO LMTD W/O CONTRAST W LMTD SPEC DOPP COLOR DOPP Routine 09/13/2017 2:44 PM EST Coronary artery disease, angina presence unspecified, unspecified vessel or lesion type, unspecified whether confed[place] gosh[place] or transplanted heart POCT GLUCOSE Routine 09/13/2017 11:32 AM EST CARDIAC CATHETERIZATION Routine 09/13/19 11:09 AM EST EKG 12-LEAD STAT 09/13/2017 7:49 AM EST Coronary artery disease, angina presence unspecified, unspecified vessel or lesion type, unspecified whether [place]ed[place] gosh[place] or transplanted heart POCT GLUCOSE Routine 09/13/2017 [...] Routine 09/13/2017 6:32 AM EST CARDIAC ENZYMES ([facility]) STAT 09/13/2017 12:13 AM EST APTT STAT 09/13/2017 12:13 AM EST CARDIAC CATH SCAN 09/13/2017 12: 00 AM EST POCT GLUCOSE Routine 09/12/2017 9:14 PM EST CARDIAC ENZYMES ([facility]/CGP) STAT 09/12/2017 6:53 PM EST XR CHEST PA AND LATERAL STAT 09/12/19 2:02 PM EST HEMOGRAM STAT 09/12/2017 1:29 PM EST DIFFERENTIAL, AUTOMATED STAT 09/12/19 1:29 PM EST GOLD TUBE HOLD STAT 09/12/2017 1:29 PM EST BLUE TUBE HOLD STAT 09/12/2017 1:29 PM EST CARDIAC ENZYMES ([facility]P) STAT 09/12/2017 1:29 PM EST APTT STAT [...] Glucose, POC 158 65 - 199 mg/dL [facility] Comment: Supplemental ranges: <140 mg/dL before meals <180 mg/dL all other times of the day Blood specimen (specimen) 09/14/2017 7:32 AM EST 09/14/2017 7:32 AM EST Christos Buchanan MD POINT OF CARE [place] [address] * Differential, Automated (09/14/2017 3:40 AM EST) Neutrophil % 51.2 % [facility] Neutrophil Absolute 4.61 1.70 - 6.10 x10(3)/[facility] Lymph % 34.3 % [facility] Lymphocytes Abs 3.1 0.9 - 3.2 x10(3)/[facility] Monocyte % 8.6 % [facility] Monocyte Abs 0.8 0.3 - 0.9 x10(3)/[facility] Eos % 4.6 % [facility] Eosinophils Abs 0.4 0.0 - 0.4 x10(3)/[facility] Basophil % 0.9 % [facility] Baso Absolute 0.1 0.0 - 0.1 x10(3)/[facility] Immature Gran % 0.40 % [facility] Comment: Immature granulocytes(IG's)percentage and absolute count will include metamyelocytes, myelocytes, and promyelocytes. Blood smears from CBCs yielding IG's will be scanned manually for concordance. If this scan disagrees with the automated IG or if promyelocytes are noted, a manual differential will be performed. Immature Gran Absolute 0.04 0.00 - 0.04 x10(3)/[facility] Blood specimen (specimen) 09/14/2017 3:40 AM EST 09/14/2017 4:08 AM EST Narrative Resulting Agency Comment Spec In Lab Christos Buchanan [place] [address] * Hemogram (09/14/2017 3:40 AM EST) White Blood Cell 9.0 4.0 - 9.5 x10(3)/[facility] Red Blood Cell 5.28 4.58 - 5.54 x10(6)/[facility] Hemoglobin 15.0 13.7 - 16.5 gm/dL [facility] Hematocrit 45.8 40.5 - 48.5 % [facility] Mean Cell Volume 86.7 82.9 - 93.1 fL [facility] Mean Cell Hemoglobin 28.4 27.5 - 32.1 pg [facility] Mean Cell Hemoglobin Concentration 32.8 32.0 - 35.7 gm/dL [facility] Platelet 188 145 - 357 x10(3)/[facility] RDW Standard Deviation 43.6 36.0 - 45.0 [facility] RDW coefficient of variation 13.7 11.4 - 13.8 % [facility] Mean Platelet Volume 10.4 7.6 - 12.9 fL [facility] NRBC% auto 0.0 % [facility] NRBC Absolute 0.000 0.000 - 0.000 x10(3)/[facility] Blood specimen (specimen) 09/14/2017 3:40 AM EST 09/14/2017 4:08 AM EST Narrative Resulting Agency Comment Spec In Lab Christos Buchanan MD HEMATOLOGY ORDERABLE S [facility] [place] [address] * Prothrombin Time (09/14/2017 3:40 AM EST) Prothrombin Time 13.3 11.8 - 14.0 sec [facility] International Normalization Ratio 1.0 0.9 - 1.1 [facility] Comment: An INR [...] MD HEMATOLOGY ORDERABLE S Performing Organization Address [place]/[facility] Co de Phone Number [facility] [place] [address] * Magnesium (09/14/2017 3:40 AM EST) Magnesium 0.83 0.69 - 1.07 mmol/L [facility] Blood specimen (specimen) 09/14/2017 3:40 AM EST 09/14/2017 4:08 AM EST Narrative Resulting Agency Comment Spec In Lab Christos Buchanan MD CHEMISTRY ORDERABLES Performing Organization Address [place]/[facility] Co de Phone Number [facility] [place] [address] * Basic Metabolic Panel (non-fasting) (09/14/2017 3:40 AM EST) Glucose 108 65 - 199 mg/dL [facility] Comment:Diabetes: >=200 mg/d L plus symptoms Blood Urea Nitrogen 11 10 - 20 mg/dL [facility] Creatinine 1.05 0.80 - 1.50 mg/dL [facility] Sodium 143 135 - 145 mmol/L [facility] Potassium 4.0 3.5 - 5.0 mmol/L [facility] Comment: Please note: ??Patients with WBC >100,000 may have falsely elevated Potassium levels. ??For accurate Potassium quantification in these patients send serum separator tube (gold top) for subsequent determinations. ??Contact the Clinical Chemistry Laboratory if there are any questions. Chloride 106 98 - 107 mmol/L [facility] Carbon Dioxide 22 [...] or in patients with acute kidney failure. [email or web address] [email or web address] Blood specimen (specimen) 09/14/2017 3:40 AM EST 09/14/2017 4:08 AM EST Narrative Resulting Agency Comment Spec In Lab Christos Buchanan MD CHEMISTRY ORDERABLES Performing Organization Address [place]/[facility] Co de Phone Number [facility] [place] [address] * SCAN DOC: OPERATOR CATALYST CONCENTRATION (09/14/2017 12:00 AM EST) Anatomical Region Laterality Modality Other Narrative 09/14/2017 12:00 AM EST Ordered by an unspecified provider. Scanning Provider MEDIA MGR SCAN EXT O RDR/RSLT * POCT Glucose (09/13/2017 7:50 PM EST) Glucose, POC 113 65 - 199 mg/dL [facility] Comment: Supplemental ranges: <140 mg/dL before meals <180 mg/dL all other times of the day Blood specimen (specimen) 09/13/2017 7:50 PM EST 09/13/2017 7:50 PM EST Christos Buchanan MD POINT OF CARE TEST O RDERABLES Performing Organization Address [place]/[facility]/ZIP Co de Phone Number [facility] [place] [address] * POCT Glucose (09/13/2017 4:58 PM EST) Glucose, POC 138 65 - 199 mg/dL [facility] Comment: Supplemental ranges: <140 mg/dL before meals <180 mg/dL all other times of the day Blood specimen (specimen) 09/13/2017 4:58 PM EST 09/13/2017 4:58 PM EST Christos Buchanan MD POINT OF CARE TEST O RDERABLES Performing Organization Address [place]/State/ZIP Co de Phone Number [facility] [place] [address] * ECHO LMTD W/O CONTRAST W LMTD SPEC DOPP COLOR DOPP (09/13/2017 2:44 PM EST) EF 65 HEARTLAB SYSTEM Anatomical Region Laterality Modality Other 09/13/2017 Narrative 09/13/2017 3:16 PM EST Procedure: ?Transthoracic Echocardiogram Patient: ?LAQUITA Pop ? (Age): 1965(52y) Med Rec#: ? [id number] ?Sex: ?M ? Site Loc: ? [facility] ?Ht / Wt: ??180.3(cm)/101.6 Pt. Loc: ?Adult Floor ? BSA: ?2.21 Study Date: ?? 09/13/2017 ?Pt. Type: Outpatient Tape: ? Referring: Christos Buchanan ([id number]) Reading: Christos Buchanan ([id number]) Dressmaker Helper: Meaghan Kim Diagnosis: *ICD-10-PCS Atherosclerotic heart disease of confed[place] coronary artery without angina pectoris (I25.10) BP: [...] E-wave Vmax ?0.6 ?m/sec ? MV deceleration vjsd252.5 ?msec ? MV A-wave Vmax ?0.5 ?m/sec [...] ? Mid-Inferior ?Normal ? Mid-Inferoseptal ?Normal ? [place]-Septal ? Normal ? [place]-Anterior ? Normal ? [place]-Lateral ?Normal ? [place]-Inferior ? Normal ? [place]-Tip ?Normal ? This report has been electronically signed by: Christos Buchanan M.D. ? 09/13/2017 15:16:25 Images reviewed and interpretation verified [facility] Cardiac Ultrasound Laboratory Procedure Note Christos Buchanan MD - 09/13/2017 Procedure: Transthoracic Echocardiogram Patient: LAQUITA Pop DOB(Age): 1965(52y) Med Rec#: [id number] Sex: M Site Loc: [facility] Ht / Wt: 180.3(cm)/101.6 Pt. Loc: Adult Floor BSA: 2.21 Study Date: 09/13/2017 Pt. Type: Outpatient Tape: Referring: Christos Buchanan ([id number]) Reading: Christos Buchanan ([id number]) Dressmaker Helper: Meaghan Kim Diagnosis: *ICD-10-PCS Atherosclerotic heart disease of [place]ed[place] coronary artery without angina pectoris (I25.10) BP: [...] MV E-wave Vmax 0.6 m/sec MV deceleration brhp222.5 msec MV A-wave Vmax 0.5 m/sec MV [...] Normal Mid-Posterolateral Normal Mid-Inferior Normal Mid-Inferoseptal Normal [place]-Septal Normal [place]-Anterior Normal [place]-Lateral Normal [place]-Inferior Normal [place]-Tip Normal This report has been electronically signed by: Christos Buchanan M.D. 09/13/2017 15:16:25 Images reviewed and interpretation verified [facility] Cardiac Ultrasound Laboratory Christos Buchanan MD ECHO ORDERABLES * POCT Glucose (09/13/2017 11:32 AM EST) Glucose, POC 104 65 - 199 mg/dL [facility] Comment: Supplemental ranges: <140 mg/dL before meals <180 mg/dL all other times of the day Blood specimen (specimen) 09/13/2017 11:32 AM EST 09/13/2017 11:32 AM EST Christos Buchanan MD POINT OF CARE TEST O RDERABLES Performing Organization Address City/State/[facility] Co de Phone Number [facility] [place] [address] * CARDIAC CATHETERIZATION (09/13/2017 11:09 AM EST) Anatomical Region Laterality Modality Other Narrative 09/13/2017 11:33 AM EST ?[facility] ? Cardiac Catheterization/Intervention Report ? Patient Name: Laquita, Romeo A. ? Procedure Date: 09/13/2017 ? A #: [id number] ? Primary Physician: Agusto Ball W ? Case #: [id number] ? File Name: [id number] ? Catheterization Order Number: [id number] ? [facility] ? Final Report [place], [place] ? Patient Name: ? Romeo A. Coe ? ID#: ?[id number] ? : ?1965 ? Procedure Date: ? [...] presented with: unstable angina (w/i 60 days). [place] ?Cardiovascular Society angina class was IV. This [...] Agusto Ball II, MD - 09/14/2017 [facility] Cardiac Catheterization/Intervention Report Patient Name: Romeo Coe Procedure Date: 09/13/2017 A #: [id number] Primary Physician: Agusto Ball Case #: [id number] File Name: [id number] Catheterization Order Number: [id number] [facility] FinalReport [place], [place] Patient Name: Romeo Coe ID#:[id number] :1965 Procedure Date: September 13, 2017 Case [...] presented with: unstable angina (w/i 60 days). [place] Cardi[employer] Society angina class was IV. This [...] (Bezet) 416 ms MUSE SYSTEM Calculated P [place] Heart 5 degrees MUSE SYSTEM Calculated R [place] Heart 23 degrees MUSE SYSTEM Calculated T [place] Heart 28 degrees MUSE SYSTEM INTERPRETATION Normal sinus rhythm Normal ECG When compared with ECG of 12-SEP-2017 12:19, No significant change was found Confirmed by MD Segundo, Panda Leyva ([id number]) on 09/14/2017 9:09:15 AM MUSE SYSTEM 09/13/2017 7:49 AM EST 09/14/2017 9:09 AM EST Christos Buchanan MD ECG ORDERABLES MUSE SYSTEM * POCT Glucose (09/13/2017 7:24 AM EST) Glucose, POC 152 65 - 199 mg/dL [facility] Comment: Supplemental ranges: <140 mg/dL before meals <180 mg/dL all other times of the day Blood specimen (specimen) 09/13/2017 7:24 AM EST 09/13/2017 7:24 AM EST Christos Buchanan MD POINT OF CARE TEST O RDERABLES Performing Organization Address [place]/[facility]/ZIP Co de Phone Number [facility] [place] [address] * (ABNORMAL) BMP w/fasting Glucose (09/13/2017 6:32 AM EST) Glucose Fasting 157(H) 65 - 99 mg/dL [facility] [...] of Diabetes Mellitus, Position Statement from the [place] [employer]. ??Diabetes Care, Volume 33, Supplement 1, Aug 2009 Blood Urea Nitrogen 11 10 - 20 mg/dL [facility] Creatinine 0.99 0.80 - 1.50 mg/dL [facility] Sodium 142 135 - 145 mmol/L [facility] Potassium 3.7 3.5 - 5.0 mmol/L [facility] [...] 15 mmol/L [facility] Calcium 9.4 8.5 - 10.5 mg/dL [facility] Est Glomerular Filtration Rate >60 >=60 [facility] Comment: The reported eGFR should be multiplied by 1.2 for patients. The MDRD is not an appropriate measure of renal function for patients with body mass extremes or in patients with acute kidney failure. [email or web address] [email or web address] Blood specimen (specimen) 09/13/2017 6:32 AM EST 09/13/2017 6:41 AM EST Narrative Resulting Agency Comment Spec In Lab Chrsitos Buchanan MD CHEMISTRY ORDERABLES Performing Organization Address [place]/[facility] Co de Phone Number [facility] [place] [address] * (ABNORMAL) APTT (09/13/2017 6:32 AM EST) [facility] Partial Thromboplastin Time 113(H) 25 - 35 sec [facility] Comment: The recommended therapeutic range for full dose, unfractionated heparin at [facility] is 80 ? 114 seconds. The use of the anti-Xa (heparin) level rather than the PTT is recommended for monitoring anticoagulation intensity in critically ill patients receiving unfractionated heparin by continuous IV infusion. Blood specimen (specimen) 09/13/2017 6:32 AM EST 09/13/2017 6:41 AM EST Narrative Resulting Agency Comment Spec In Lab Christos Buchanan MD HEMATOLOGY ORDERABLE S Performing Organization Address City/[facility]/ZIP Co de Phone Number [facility] [place] [address] * Differential, Automated (09/13/2017 6:32 AM EST) Neutrophil % 64.9 % [facility] Neutrophil Absolute 5.94 1.70 - 6.10 x10(3)/[facility] Lymph % 24.7 % [facility] Lymphocytes Abs 2.3 0.9 - 3.2 x10(3)/[facility] Monocyte % 5.3 % [facility] Monocyte Abs 0.5 0.3 - 0.9 x10(3)/[facility] Eos % 4.0 % [facility] Eosinophils Abs 0.4 0.0 - 0.4 x10(3)/[facility] Basophil % 0.7 % [facility] Baso Absolute 0.1 0.0 - 0.1 x10(3)/[facility] Immature Gran % 0.40 % [facility] Comment: Immature granulocytes(IG's)percentage and absolute count will include metamyelocytes, myelocytes, and promyelocytes. Blood smears from CBCs yielding IG's will be scanned manually for concordance. If this scan disagrees with the automated IG or if promyelocytes are noted, a manual differential will be performed. Immature Gran Absolute 0.04 0.00 - 0.04 x10(3)/[facility] Blood specimen (specimen) 09/13/2017 6:32 AM EST 09/13/2017 6:41 AM EST Narrative Resulting Agency Comment Spec In Lab Christos Buchanan MD HEMATOLOGY ORDERABLE S [facility] [place] [address] * Hemogram (09/13/2017 6:32 AM EST) White Blood Cell 9.2 4.0 - 9.5 x10(3)/[facility] Red Blood Cell 5.29 4.58 - 5.54 x10(6)/[facility] Hemoglobin 15.4 13.7 - 16.5 gm/dL [facility] Hematocrit 44.9 40.5 - 48.5 % [facility] Mean Cell Volume 84.9 82.9 - 93.1 fL [facility] Mean Cell Hemoglobin 29.1 27.5 - 32.1 pg [facility] Mean Cell Hemoglobin Concentration 34.3 32.0 - 35.7 gm/dL [facility] Platelet 186 145 - 357 x10(3)/[facility] RDW Standard Deviation 42.9 36.0 - 45.0 fL [facility] RDW coefficient of variation 13.8 11.4 - 13.8 % [facility] Mean Platelet Volume 10.3 7.6 - 12.9 fL [facility] NRBC% auto 0.0 % [facility] NRBC Absolute 0.000 0.000 - 0.000 x10(3)/[facility] Blood specimen (specimen) 09/13/2017 6:32 AM EST 09/13/2017 6:41 AM EST Narrative Resulting Agency Comment Spec In Lab Christos Buchanan MD HEMATOLOGY ORDERABLE S Performing Organization Address [place]/[facility] Co de Phone Number [facility] [place] [address] * Blood culture (09/13/2017 6:32 AM EST) Blood Culture No growth at 5 days. [facility] Blood specimen (specimen) 09/13/2017 6:32 AM EST 09/13/2017 7:17 AM EST Comment:L FOREARM Narrative Resulting Agency Comment Spec In Lab Christos Buchanan MD MICROBIOLOGY - BLOOD ORDERABLES Performing Organization Address [place]/[facility] Co de Phone Number [facility] [place] [address] * Prothrombin Time (09/13/2017 6:32 AM EST) Prothrombin Time 13.8 11.8 - 14.0 sec [facility] International Normalization Ratio 1.1 0.9 - 1.1 [facility] Comment: An INR [...] MD HEMATOLOGY ORDERABLE S Performing Organization Address [place]/[facility] Co de Phone Number [facility] [place] [address] * Magnesium (09/13/2017 6:32 AM EST) Magnesium 0.84 0.69 - 1.07 mmol/L [facility] Blood specimen (specimen) 09/13/2017 6:32 AM EST 09/13/2017 6:41 AM EST Narrative Resulting Agency Comment Spec In Lab Christos Buchanan MD CHEMISTRY ORDERABLES Performing Organization Address [place]/[facility] Co de Phone Number [facility] [place] [address] * Triglyceride (09/13/2017 6:32 AM EST) Triglyceride 153 <=199 mg/dL [facility] Blood specimen (specimen) 09/13/2017 6:32 AM EST 09/13/2017 6:41 AM EST Narrative Resulting Agency Comment Spec In Lab Christos Buchanan MD CHEMISTRY ORDERABLES Performing Organization Address [place]/[facility] Co de Phone Number [facility] [place] [address] * HDL/Cholesterol Profile (09/13/2017 6:32 AM EST) Cholesterol, Total 162 <=239 mg/dL [facility] HDL Cholesterol 44 >=40 mg/dL [facility] Cholesterol/HDL Ratio 3.7 ratio [facility] Chol/HDL Interpretation See Note [facility] Comment: Lipid management should be guided by a patient? s ASCVD risk, goals and preferences. ACC/AHA Guidelines recommend high intensity statin if clinical ASCVD or LDL greater than or equal to 190 mg/dL. http://Swapsee.com/ZSR-NBK-Jwkaxnafg Measure LDL if Total Cholesterol minus HDL Cholesterol is greater than 220 mg/dL. Adults aged 40-75 with LDL 70-189 mg/dL should have their 10 year ASCVD risk estimated with the ACC/AHA ASCVD risk hospice aide http://tools.acc.org/QGWJD-Rvya-Rirxtjcnh/ Statin should be discussed if risk greater [...] Buchanan MD CHEMISTRY ORDERABLES Performing Organization Address City/State/[facility] Co de Phone Number [facility] [place] [address] * LDL Cholesterol, Direct (09/13/2017 6:32 AM EST) LDL Cholesterol, Direct 102 <=190 mg/dL [facility] Blood specimen (specimen) 09/13/2017 6:32 AM EST 09/13/2017 6:41 AM EST Narrative Resulting Agency Comment Spec In Lab Christos Buchanan MD CHEMISTRY ORDERABLES [facility] [place] [address] * (ABNORMAL) Hemoglobin A1c (09/13/2017 6:32 AM EST) Hemoglobin A1c 6.4(H) 4.3 - 5.6 % [facility] [...] Mellitus, Diabetes Care 2013; 36: Suppl. 1, U57-92 Estimated Average Glucose 137 mg/dL [facility] Comment: eAG [...] into estimated average glucose values. ??Diabetes Care 2008:31(8):7030-6327. Blood specimen (specimen) 09/13/2017 6:32 AM EST 09/13/2017 6:41 AM EST Narrative Resulting Agency Comment Spec In Lab Christos Buchanan MD CHEMISTRY ORDERABLES Performing Organization Address [place]/[facility] Co de Phone Number [facility] [place] [address] * pro-Brain Natriuretic Peptide (09/13/2017 6:32 AM EST) NT-proBNP 15 <=125 pg/mL [facility] Blood specimen (specimen) 09/13/2017 6:32 AM EST 09/13/2017 6:41 AM EST Narrative Resulting Agency Comment Spec In Lab Christos Buchanan MD CHEMISTRY ORDERABLES Performing Organization Address [facility] Phone Number [facility] [place] [address] * (ABNORMAL) APTT (09/13/2017 12:13 AM EST) Partial Thromboplastin Time 50(H) 25 - 35 sec [facility] Comment: The recommended therapeutic range for full dose, unfractionated heparin at [facility] is 80 ? 114 seconds. The use of the anti-Xa (heparin) level rather than the PTT is recommended for monitoring anticoagulation intensity in critically ill patients receiving unfractionated heparin by continuous IV infusion. Blood specimen (specimen) 09/13/2017 12:13 AM EST 09/13/2017 12:42 AM EST Narrative Resulting Agency Comment Spec In Lab Christos Buchanan MD HEMATOLOGY ORDERABLE S Performing Organization Address [place]/[facility] Co de Phone Number [facility] [place] [address] * Cardiac Enzymes (LEB/CGP) (09/13/2017 12:13 AM EST) Troponin-T <0.01 0.00 - 0.00 ng/mL [facility] Comment: The 99th percentile for Troponin T is less than 0.01 ng/mL, any detectable cTnT concentration using this assay should be considered elevated. According to the third universal definition of myocardial infarction the following criteria with a clinical presentation consistent with acute myocardial ischemia meets the diagnosis for a myocardial infarction (SC). Detection of a rise and/or fall of cTnT, with at least one value greater than the 99th percentile (> or = 0.01) and with at least one of the following ?? Symptoms of ischemia ?? New or presumed new significant WS-ypoleaa-Y wave (ST-T) changes or new left bundle [...] additional sample may be indicated. Reference: Third [place] Definition of Myocardial Infarction. Journal of the [place] [employer] 2012;60:1581-98 Creatine Kinase 55 0 - 200 unit/L [facility] Blood specimen (specimen) 09/13/2017 12:13 AM EST 09/13/2017 12:42 AM EST Narrative Resulting Agency Comment Spec In Lab Christos Buchanan MD CHEMISTRY ORDERABLES [facility] [place] [id number] * SCAN DOC: CARDIAC CATH (09/13/2017 12:00 [...] CARE TEST O RDERABLES Performing Organization Address [place]/[facility]/ZIP Co de Phone Number [facility] [place] [address] * Cardiac Enzymes (LEB/CGP) (09/12/2017 6:53 PM EST) Troponin-T <0.01 0.00 - 0.00 ng/mL [facility] Comment: The 99th percentile for Troponin T is less than 0.01 ng/mL, any detectable cTnT concentration using this assay should be considered elevated. According to the third universal definition of myocardial infarction the following criteria with a clinical presentation consistent with acute myocardial ischemia meets the diagnosis for a myocardial infarction (SC). Detection of a rise and/or fall of cTnT, with at least one value greater than the 99th percentile (> or = 0.01) and with at least one of the following ?? Symptoms of ischemia ?? New or presumed new significant BF-qopmgjp-U wave (ST-T) changes or new left bundle [...] additional sample may be indicated. Reference: Third [place] Definition of Myocardial Infarction. Journal of the [place] [employer] 2012;60:1581-98 Creatine Kinase 57 0 - 200 unit/L [facility] Blood specimen (specimen) 09/12/2017 6:53 PM EST 09/12/2017 7:02 PM EST Narrative Resulting Agency Comment Spec In Lab Christos Buchanan MD CHEMISTRY ORDERABLES Performing Organization Address [place]/[facility]/ZIP Co de Phone Number [facility] [place] [address] * XR Chest PA & Lateral (Generic) [...] No acute cardiopulmonary disease. Buster Nahomi Bessy [facility] DX ORDERABLES * Prothrombin Time (09/12/2017 1:29 PM EST) Prothrombin Time 13.7 11.8 - 14.0 sec [facility] International Normalization Ratio 1.1 0.9 - 1.1 [facility] Comment: An INR [...] MD HEMATOLOGY ORDERAB LES Performing Organization Address [place]/[facility] Co de Phone Number [facility] [place] [address] * APTT (09/12/2017 1:29 PM EST) Partial Thromboplastin Time 28 25 - 35 sec [facility] Comment: The recommended therapeutic range for full dose, unfractionated heparin at [facility] is 80 ? 114 seconds. The use [...] MD HEMATOLOGY ORDERAB LES Performing Organization Address [place]/[facility] Co de Phone Number [facility] [place] [address] * pro-Brain Natriuretic Peptide (09/12/2017 1:29 PM EST) Pathologist [facility] NT-proBNP 20 <=125 pg/mL [facility] Blood specimen (specimen) Venous Draw / Unknown 09/12/2017 1:29 PM EST 09/12/2017 1:35 PM EST Narrative Resulting Agency Comment Spec In Lab Alejandro Blair MD CHEMISTRY ORDERABL ES Performing Organization Address [place]/[facility] Co de Phone Number [facility] [place] [address] * Gold Tube HOLD (09/12/2017 1:29 PM EST) Gold Hold Sample in lab. [facility] Blood specimen (specimen) Venous Draw / Unknown 09/12/2017 1:29 PM EST 09/12/2017 1:34 PM EST Alejandro Blair MD CHEMISTRY ORDERABL ES Performing Organization Address City/[facility]/[place] [address] * Blue Tube HOLD (09/12/2017 1:29 PM EST) Pathologist [facility] Blue Hold Sample in lab. [facility] Blood specimen (specimen) Venous Draw / Unknown 09/12/2017 1:29 PM EST 09/12/2017 1:34 PM EST Alejandro Blair MD HEMATOLOGY ORDERAB LES Performing Organization Address [place]/[facility] [place] [address] * Differential, Automated (09/12/2017 1:29 PM EST) Pathologist [facility] Neutrophil % 57.0 % [facility] Neutrophil Absolute 5.07 1.70 - 6.10 x10(3)/[facility] Lymph % 29.7 % [facility] Lymphocytes Abs 2.6 0.9 - 3.2 x10(3)/[facility] Monocyte % 7.8 % [facility] Monocyte Abs 0.7 0.3 - 0.9 x10(3)/[facility] Eos % 4.2 % [facility] Eosinophils Abs 0.4 0.0 - 0.4 x10(3)/[facility] Basophil % 0.8 % [facility] Baso Absolute 0.1 0.0 - 0.1 x10(3)/[facility] Immature Gran % 0.50 % [facility] Comment: Immature granulocytes(IG's)percentage and absolute count will include metamyelocytes, myelocytes, and promyelocytes. Blood smears from CBCs yielding IG's will be scanned manually for concordance. If this scan disagrees with the automated IG or if promyelocytes are noted, a manual differential will be performed. Immature Gran Absolute 0.04 0.00 - 0.04 x10(3)/[facility] Blood specimen (specimen) 09/12/2017 1:29 PM EST 09/12/2017 1:34 PM EST Narrative Resulting Agency Comment Spec In Lab Alejandro Blair MD HEMATOLOGY ORDERAB LES Performing Organization Address City/[facility] Co de Phone Number [facility] [place] [address] * Hemogram (09/12/2017 1:29 PM EST) White Blood Cell 8.9 4.0 - 9.5 x10(3)/[facility] Red Blood Cell 5.07 4.58 - 5.54 x10(6)/[facility] Hemoglobin 14.8 13.7 - 16.5 gm/dL [facility] Hematocrit 43.3 40.5 - 48.5 % [facility] Mean Cell Volume 85.4 82.9 - 93.1 [facility] Mean Cell Hemoglobin 29.2 27.5 - 32.1 pg [facility] Mean Cell Hemoglobin Concentration 34.2 32.0 - 35.7 gm/dL [facility] Platelet 208 145 - 357 x10(3)/[facility] RDW Standard Deviation 42.5 36.0 - 45.0 [facility] RDW coefficient of variation 13.7 11.4 - 13.8 % [facility] Mean Platelet Volume 10.4 7.6 - 12.9 [facility] NRBC% auto 0.0 % [facility] NRBC Absolute 0.000 0.000 - 0.000 x10(3)/[facility] Blood specimen (specimen) 09/12/2017 1:29 PM EST 09/12/2017 1:34 PM EST Narrative Resulting Agency Comment Spec In Lab Alejandro Blair MD HEMATOLOGY ORDERAB LES Performing Organization Address City/[facility]/ZIP Co de Phone Number [facility] [place] [address] * (ABNORMAL) Basic Metabolic Panel (non-fasting) (09/12/2017 1:29 PM EST) Glucose 113 65 - 199 mg/dL [facility] Comment:Diabetes: >=200 mg/d L plus symptoms Blood Urea Nitrogen 10 10 - 20 mg/dL [facility] Creatinine 0.96 0.80 - 1.50 mg/dL [facility] Sodium 143 135 - 145 mmol/L [facility] [...] mmol/L [facility] Anion Gap 17(H) 5 - 15 mmol/L [facility] Calcium 9.2 8.5 - 10.5 mg/dL [facility] Est Glomerular Filtration Rate >60 >=60 [facility] Comment: The reported eGFR should be multiplied by 1.2 for patients. The MDRD is not an appropriate measure of renal function for patients with body mass extremes or in patients with acute kidney failure. http://Swapsee.Triplify/DHnkdep http://Swapsee.Triplify/DHMCnkf Blood specimen (specimen) 09/12/2017 1:29 PM EST 09/12/2017 1:34 PM EST Narrative Resulting Agency Comment Spec In Lab Alejandro Blair MD CHEMISTRY ORDERABL ES Performing Organization Address [place]/[facility] Co de Phone Number [facility] [place] [address] * Cardiac Enzymes (LEB/CGP) (09/12/2017 1:29 PM EST) Troponin-T <0.01 0.00 - 0.00 ng/mL [facility] Comment: The 99th percentile for Troponin T is less than 0.01 ng/mL, any detectable cTnT concentration using this assay should be considered elevated. According to the third universal definition of myocardial infarction the following criteria with a clinical presentation consistent with acute myocardial ischemia meets the diagnosis for a myocardial infarction (SC). Detection of a rise and/or fall of cTnT, with at least one value greater than the 99th percentile (> or = 0.01) and with at least one of the following ?? Symptoms of ischemia ?? New or presumed new significant BT-slodmen-U wave (ST-T) changes or new left bundle [...] additional sample may be indicated. Reference: Third [place] Definition of Myocardial Infarction. Journal of the [place] [employer] 2012;60:1581-98 Creatine Kinase 65 0 - 200 unit/L [facility] Blood specimen (specimen) 09/12/2017 1:29 PM EST 09/12/2017 1:34 PM EST Narrative Resulting Agency Comment Spec In Lab Alejandro Blair MD CHEMISTRY ORDERABL ES [facility] [place] [address] * EKG 12 Lead (09/12/2017 12:19 PM EST) Ventricular rate 82 BPM MUSE SYSTEM Atrial Rate 82 BPM MUSE SYSTEM P-R Interval 136 ms MUSE SYSTEM QRS Duration 80 ms MUSE SYSTEM Q-T Interval 358 ms MUSE SYSTEM QTC Calculated (Bezet) 418 ms MUSE SYSTEM Calculated P [place] 13 degrees MUSE SYSTEM Calculated R [place] 33 degrees MUSE SYSTEM Calculated T [place] 34 degrees MUSE SYSTEM INTERPRETATION Normal sinus [...] vessel or lesion type, unspecified whether [place] or transplanted heart Atherosclerosis of [place] coronary artery with unstable angina pectoris, unspecified whether [place] or transplanted heart Unstable angina Intermediate coronary [...] 75 mg, Oral, DAILY, First dose on [facility] 09/13/17 at 0900, Until Discontinued, Routine Given 09/14/2017 8:30 AM EST 75 mg Given 09/13/2017 8:50 AM EST 75 mg DULoxetine (CYMBALTA) capsule 60 mg 60 mg, Oral, 2 TIMES DAILY, First dose on [facility] 09/12/17 at 2100, Until Discontinued, Routine Given 09/14/2017 8:30 AM EST 60 mg Given 09/13/2017 8:20 PM EST 60 mg Given 09/13/2017 8:51 AM EST 60 mg gabapentin (NEURONTIN) capsule 600 mg 600 mg, Oral, 2 TIMES DAILY BEFORE BREAKFAST AND LUNCH, First dose (after last modification) on [facility] 09/13/17 at 0730, Until Discontinued, Routine Given 09/14/2017 8:00 AM EST 600 mg Given 09/13/2017 1:23 PM EST 600 mg Given 09/13/2017 8:00 AM EST 600 mg gabapentin (NEURONTIN) capsule 900 mg 900 mg, Oral, NIGHTLY, First dose on [facility] 09/12/17 at 2100, Until Discontinued, Routine Given 09/13/2017 8:20 PM EST 900 mg Given 09/12/2017 8:30 PM EST 900 mg heparin (porcine) injection 0-4,000 Units 0-4,000 Units, Intravenous, BOLUS PER HEPARIN PROTOCOL, Starting on [facility] 09/12/17 at 1512, Until [facility] 09/13/17 at 1015, Per Protocol, START ADJUSTMENT SCHEDULE 6 HOURS AFTER STARTING INFUSION aPTT Between 60 - 79 seconds: Bolus 2,000 units aPTT Less than 60 seconds: Bolus 4,000 units Increase infusion and recheck aPTT in 6 hours. , Routine Given 09/13/2017 1:18 AM EST 4,000 Units heparin (porcine) injection 4,000 Units 4,000 Units, Intravenous, ONCE, 1 dose, On [facility] 09/12/17 at 1515, INITIAL LOADING DOSE [...] Transdermal, 2 TIMES DAILY, First dose on [facility] 09/13/17 at 0415, Until Discontinued, Verify nicotine [...] 0850 (Given - Provider: Rupal Munguia RN)1002 ([facility] Hold - Provider: Admin Adt - Reason: Transfer to a Procedural area)1134 ([facility] Unhold - Provider: Admin Adt) 0830 (Given - Provider: Rupal Munguia RN) DULoxetine (CYMBALTA) capsule 60 mg 60 mg, Oral, 2 TIMES DAILY, First dose on 09/12/17 at 2100, Until Discontinued, Routine 2030 (Given - Provider: Keisha Mae RN) 0851 (Given - Provider: Rupal Munguia RN)1002 ([facility] Hold - Provider: Admin Adt - Reason: Transfer to a Procedural area)1134 ([facility] Unhold - Provider: Admin Adt)2020 (Given - Provider: Keisha Mae RN) 0830 (Given - Provider: Rupal Munguia RN) gabapentin (NEURONTIN) capsule 600 mg 600 mg, Oral, 2 TIMES DAILY BEFORE BREAKFAST AND LUNCH, First dose (after last modification) on 09/13/17 at 0730, Until Discontinued, Routine 0800 (Given - Provider: Rupal Munguia RN)1002 ([facility] Hold - Provider: Admin Adt - Reason: Transfer to a Procedural area)1130 (Automatically Held - Provider: Admin Adt)1134 ([facility] Unhold - Provider: Admin Adt)1323 (Given - Provider: Rupal Munguia RN - Comment: late lunch) 0800 (Given - Provider: Rupal Munguia RN) gabapentin (NEURONTIN) capsule 900 mg 900 mg, Oral, NIGHTLY, First dose on 09/12/17 at 2100, Until Discontinued, Routine 2030 (Given - Provider: Keisha Mae RN) 1002 ([facility] Hold - Provider: Admin Adt - Reason: Transfer to a Procedural area)1134 ([facility] Unhold - Provider: Admin Adt)2019 [...] 0852 (Given - Provider: Rupal Munguia RN)1002 ([facility] Hold - Provider: Admin Adt - Reason: Transfer to a Procedural area)1134 ([facility] Unhold - Provider: [...] 0853 (Given - Provider: Rupal Munguia, VERO)1002 ([facility] Hold - Provider: Admin Adt - Reason: Transfer to a Procedural area)1134 ([facility] Unhold - Provider: Admin Adt) 0831 (Given - Provider: Rupal Munguia RN) meTOPROLOL tartrate (LOPRESSOR) tablet 50 mg 50 mg, Oral, 2 TIMES DAILY, First dose on 09/12/17 at 2100, Until Discontinued, Routine 2030 (Given - Provider: Keisha Mae, VERO) 0852 (Given - Provider: Rupal Munguia, VERO)1002 ([facility] Hold - Provider: Admin Adt - Reason: Transfer to a Procedural area)1134 ([facility] Unhold - Provider: Admin Adt)2020 [...] Rupal Munguia RN - Reason: Patient/family refused)1002 ([facility] Hold - Provider: Admin Adt - Reason: Transfer to a Procedural area)1134 ([facility] Unhold - Provider: Admin Adt) 0900 (Not Given - Provider: Rupal Munguia RN - Reason: Patient/family refused) nicotine (NICODERM CQ) 14 mg/24 hr patch Patch Removal(Linked Group 1) Transdermal, DAILY, First dose on 09/13/17 at 1615, Until Discontinued, Remove nicotine 14 mg/24 hr patch 1002 ([facility] Hold - Provider: Admin Adt - Reason: Transfer to a Procedural area)1134 ([facility] Unhold - Provider: Admin Adt)1615 [...] comment - Comment: not placed; pt refused)1002 ([facility] Hold - Provider: Admin Adt - Reason: Transfer to a Procedural area)1134 ([facility] Unhold - Provider: Admin Adt)2100 [...] 0852 (Given - Provider: Rupal Munguia RN)1002 ([facility] Hold - Provider: Admin Adt - Reason: Transfer to a Procedural area)1134 ([facility] Unhold - Provider: Admin Adt)2019 (Given - Provider: Keisha Mae RN) 0830 (Given - Provider: Rupal Munguia RN) pramipexole (MIRAPEX) tablet 0.5 mg 0.5 mg, Oral, NIGHTLY, First dose on 09/12/17 at 2100, Until Discontinued, Routine 2030 (Given - Provider: Keisha Mae RN) 1002 ([facility] Hold - Provider: Admin Adt - Reason: Transfer to a Procedural area)1134 ([facility] Unhold - Provider: Admin Adt)2018 (Given - Provider: Keisha Mae RN) rosuvastatin (CRESTOR) tablet 20 mg 20 mg, Oral, EVERY EVENING, First dose on 09/12/17 at 1800, Until Discontinued, Routine 1818 (Given - Provider: Mariela So, VERO) 1002 ([facility] Hold - Provider: Admin Adt - Reason: Transfer to a Procedural area)1134 ([facility] Unhold - Provider: Admin Adt)1639 (Given - Provider: Rupal Munguia, VERO) sodium chloride 0.9 % flush 5 mL 5 mL, Intravenous, 2 TIMES DAILY, First dose on 09/12/17 at 2100, Until Discontinued, Routine 2100 (Not Given - Provider: Keisha Mae RN - Reason: Contraindicated - Comment: iv infusing) 0900 (Not Given - Provider: Rupal Munguia RN - Reason: Contraindicated)1002 ([facility] Hold - Provider: Admin Adt - Reason: Transfer to a Procedural area)1134 ([facility] Unhold - Provider: Admin Adt)2099 [...] (Given - Provider: Keisha Mae RN) 1002 ([facility] Hold - Provider: Admin Adt - Reason: Transfer to a Procedural area)1134 ([facility] Unhold - Provider: Admin Adt)2019 [...] - Reason: Transfer to a Procedural area)1015 ([facility] Unhold - Provider: [...] - Reason: Transfer to a Procedural area)1134 ([facility] Unhold - Provider: [...] RN)0809 (Given - Provider: Rupal Munguia RN)1002 ([facility] Hold - Provider: Admin Adt - Reason: Transfer to a Procedural area)1134 ([facility] Unhold - Provider: Admin Adt) oxyCODONE (ROXICODONE) immediate release tablet 10 mg 10 mg, Oral, 4 TIMES DAILY PRN, Starting on 09/12/17 at 1735, Until 09/14/17 at 1312, pain unresponsive to tylenol, Routine 1002 ([facility] Hold - Provider: Admin Adt - Reason: Transfer to a Procedural area)1134 ([facility] Unhold - Provider: Admin Adt)2024 [...] provided on this medication record., Routine 1002 ([facility] Hold - Provider: Admin Adt - Reason: Transfer to a Procedural area)1134 ([facility] Unhold - Provider: [...] UA) documented in this encounter Care Teams Addiction Professional Relationship Specialty Start Date End Date Coni Lim MD [address] [place] [address] PCP - General 07/16/10 documented as of this encounter
--- OUTSIDE RECORDS SUMMARY | 2024-08-05 17:21 | XMS_ITS | Encounter Summary ---
Author Organization [facility] [place] [address] Care Team Providers Care Policy Checker Name Role Phone Coni Lim MD Primary Care Provider [phone] Encounter Details Date Type Department Care Team (Late st Contact Info) Description 11/26/2016 External Results [place] [address] Dwayne Gonzalez MD [address] [place] [id number] Social History Tobacco Use Types Packs/Day Years [...] on filedocumented in this encounter Care Teams Policy Checker Relationship Specialty Start Date End Date Coni Lim MD [address] [place], [place] [id number] PCP - General 07/16/10 documented as of this encounter
--- OUTSIDE RECORDS SUMMARY | 2024-08-05 17:21 | XMS_ITS | Encounter Summary ---
Author Organization [facility] Address [facility] [place] [address] Care Team Providers Care Enterprise Systems Manager Name Role Phone Coni Lim MD Primary Care Provider [phone] Reason for Visit * Auth/Cert Specialty Diagnoses / Procedures Referred By Ruby garvin Referred To Contact Diagnoses Unstable angina [place] Referral ID Status Reason Start Date Expiration Date Visits Re quested Visits Authorized [id number] 1 1 Encounter Details Date Type Department Care Team (Latest Contact Info) Description 11/21/2016 7:58 PM EDT - 11/25/2016 11:04 AM EDT Hospital Encounter Intermediate [place] [address] Valentín Oreilly MD [facility] [place] [address] Roque Sanches MD [facility] [place] [address] Unstable angina Discharge Disposition: Home Social History [...] Romeo Coelho Patient Age: 51 y.o. Language: Botswanan Race: White Ethnicity: Not nor Admit date: 11/21/2016 Discharge date and time: 11/25/2016 Attending Physician: Roque Sanches MD Discharge Physician: Roque Sanches MD Follow-up Recommendations for Providers: 1. Admitted with unstable angina. Drug-eluting stent RCA. 2. Requires dual antiplatelet therapy for 1 year 3. Smoking cessation Inpatient Provider Contact Information: Keisha Rose APRN [facility] Provider # [id number] Discharge Diagnoses (Hospital Problems) and Secondary Diagnoses (Chronic Problems): Active Hospital Problems Diagnosis ??? Unstable angina ??? CAD (coronary artery disease) -Coronary Angio 07/29/2013: 65% (FFR 0.74) mid LAD lesion s/p PCI with 3.5 X 18 mm [facility] 2009 post abnormal nuc stress +IW, [...] restenosis addressed with LAD stentangioplasty at [facility] in January 2014), DM2, HTN, dyslipidemia, continued tobacco use, and obesity was transferred from [facility] to [facility] for further evaluation of unstable angina. Prior [...] PF, Split 07/30/2013 ??? Influenza Vaccine (Novel) [id number], Injectable 05/24/2009 ??? Influenza Vaccine w/Preservative, Split [...] one of the cardiology nurses at [facility] during normal business hours(Thursday through Thursday, 8 AM to 5 PM) at . During nonbusiness hours (evenings, nights, weekends, holidays), you may contact the client technical professional insurance follow up rep at . Return to work: -unemployed Driving: -No driving for 48 hours after catheterization. Follow up Appointments: ?? PCP: Coni Lim MD will see you on November 28, 2016 at 2:45 PM at [facility]. You may contact her office at [phone] with any questions or concerns ?? Cardiology: Please see Dr. Ling in [place], [place] on December 16 at 11:00 AM. His office may be contacted at with any questions or concerns. Home oxygen therapy: N/A Arrangements for VNA/home care: none Discharge References/Attachments None Keisha Rose APRN Nurse Practitioner-Department of Cardiology [email or web address] Pager [phone] Phone number: [phone] Fax number [phone] I have discussed this patient with attending [...] one of the cardiology nurses at [facility] during normal business hours(Thursday through Thursday, 8 AM to 5 PM) at . During nonbusiness hours (evenings, nights, weekends, holidays), you may contact the client technical professional insurance follow up rep at . Return to work: -unemployed Driving: -No driving for 48 hours after catheterization. Follow up Appointments: ?? PCP: Coni Lim MD will see you on November 28, 2016 at 2:45 PM at [facility]. You may contact her office at [phone] with any questions or concerns ?? Cardiology: Please see Dr. Ling in [place], [place] on December 16 at 11:00 AM. [...] Nicotine Replacement Therapy , November 23, 2012: https://www.federalregister.gov/articles//2013-72550/modificati fjr-cv-xbtfhxtc-fm-vzrycjsl-kvaldvstrvy-vzcnfgt-rruybydf-kxh-squn-skf-pgxezsb-hu man-use Nicotine lozenge instructions: Use the 4 [...] Nicotine Replacement Therapy , November 23, 2012: https://www.federalregister.gov/articles//2013-22147/modificati xce-nw-zqkkgfug-pk-vfcuaktu-bmsmbwjnygx-rbmhpix-sirubdfn-rda-dfar-srn-wvhubva-hu man-use Remember to cut down on regular coffee intake to no more than 2-3 eight ounce cups a day. Substitute decaf or herbal tea, water or any other non caffeine drink for regular coffee to avoid rising caffeine levels when you don't smoke. You have been referred to the [place] Quitline and should expect to receive a phone call from them within the next several days. If you do not hear from them within one week of discharge please call them.The number is in the green Tobacco Cessation folder you were given. Contact HENRIQUE Rapp, [place] if you have any questions about your [...] Progress Note Patient Name: Romeo Coelho Service: SOLUTIONS ENGINEER / PA Responsible Attending: Roque Sanches MD Reason for continued hospitalization: -discharge -smoking cessation consult Active Problems: Active Hospital Problems Diagnosis ??? Unstable angina ??? CAD (coronary artery disease) -Coronary Angio 07/29/2013: 65% (FFR 0.74) mid LAD lesion s/p PCI with 3.5 X 18 mm [facility] 2009 post abnormal nuc stress +IW, [...] PLATELET 214 203 207 Recent Labs 11/21/16 2032 INR 1.0 Recent Labs 11/25/16 0452 11/23/16 [...] priority for the procedure was Urgent. [facility] for [...] addressed with LAD stent angioplasty at [facility] in January 2014, DM2, HTN, dyslipidemia, continued tobacco use, and obesity transferred to [facility] for further evaluation of unstable angina. Underwent Cardiac catheterization to day (11/24/16)-CI of RCA Comfortable overnight Smoking cessation consult Plan: 1. Unstable angina LAD and LCx disease defined at prior cardiac catheterizations (at [facility] and [facility]) Describes crescendo anginal symptoms which have [...] tobacco use. I have spoken to Shania Videsterry from Smoking Cessation She will see patient [...] planning and prep for this patient. * Roqeu Sanches MD - 11/24/2016 7:48 AM EDT Inpatient Cardiology Progress Note Patient Name: Romeo Coelho Service: SOLUTIONS ENGINEER / PA Responsible Attending: Roque Sanches MD Reason for continued hospitalization: Evaluation and management of unstable angina; cardiac cath anticipated today (11/24/16) Active Problems: Active Hospital Problems Diagnosis ??? Unstable angina ??? CAD (coronary artery disease) -Coronary Angio 07/29/2013: 65% (FFR 0.74) mid LAD lesion s/p PCI with 3.5 X 18 mm [facility] 2009 post abnormal nuc stress +IW, [...] addressed with LAD stent angioplasty at [facility] in January 2014, DM2, HTN, dyslipidemia, continued tobacco use, and obesity transferred to [facility] for further evaluation of unstable angina. Cardiac catheterization today ( 7). Plan: 1. Unstable angina LAD and LCx disease defined at prior cardiac catheterizations (at [facility] and [facility]) Describes crescendo anginal symptoms which have [...] Progress Note Patient Name: Romeo Coelho Service: SOLUTIONS ENGINEER / PA Responsible Attending: Roque Sanches MD Reason for continued hospitalization: Evaluation and management of unstable angina Active Problems: Active Hospital Problems Diagnosis ??? Unstable angina ??? CAD (coronary artery disease) -Coronary Angio 07/29/2013: 65% (FFR 0.74) mid LAD lesion s/p PCI with 3.5 X 18 mm [facility] 2009 post abnormal nuc stress +IW, [...] addressed with LAD stent angioplasty at [facility] in January 2014, DM2, HTN, dyslipidemia, continued tobacco use, and obesity transferred to [facility] for further evaluation of unstable angina. Cardiac catheterization anticipated tomorrow AM (11/24/16). Plan: 1. Unstable angina LAD and LCx disease defined at prior cardiac catheterizations (at [facility] and [facility]) Describes crescendo anginal symptoms which have [...] Progress Note Patient Name: Romeo Coelho Service: SOLUTIONS ENGINEER / PA Responsible Attending: Roque Sanches MD Reason for continued hospitalization: Evaluation and management of unstable angina Active Problems: Active Hospital Problems Diagnosis ??? Unstable angina ??? CAD (coronary artery disease) -Coronary Angio 07/29/2013: 65% (FFR 0.74) mid LAD lesion s/p PCI with 3.5 X 18 mm [facility] 2009 post abnormal nuc stress +IW, [...] addressed with LAD stent angioplasty at [facility] in January 2014, DM2, HTN, dyslipidemia, continued tobacco use, and obesity transferred to [facility] for further evaluation of unstable angina. Cardiac catheterization anticipated soon. Plan: 1. Unstable angina LAD and LCx disease defined at prior cardiac catheterizations (at [facility] and [facility]) Describes crescendo anginal symptoms which have [...] him, and reviewed the current planof care. uJan Weir PA-C 11/22/2016 AF 36.5 70 107/62 [...] a 51 yr M ( Transferred from [place]) PMH of CAD - multiple PCIs in past, latest cath in January 2014 ( at [facility] ) JACINDA x2 to LAD, prior [...] in ED. Symptoms reminiscent of his prior LA / Unstable angina. Compliant with meds . [...] of Onset ??? Myocardial Infarction Father 46 [place], CABG ??? Diabetes Mother ??? Hypertension Mother [...] who is 29 years old. 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 Similar in character to prior LA / UA; Nitrate responsive. ECG : nsr [...] in the outpatient cardiac rehabilitation program at [place] was discussed. Patient agrees to a referral [...] tablet 80 mg 80 mg Oral QPM Mopala, Drew, MD 80 mg at 11/24/16 1658 ??? [...] of Onset ??? Myocardial Infarction Father 46 [place], CABG ??? Diabetes Mother ??? Hypertension Mother [...] brain. TREATMENT PLAN/RECOMMENDATIONS: [X ] Provide [facility] Tobacco Cessation Packet Discuss and prescribe (if [...] 8-end 1 mg PO BID Refer to [place] [employer]uit [employer] e-referral placed X Refer to [place] 802 Quits (fill out and fax enrollment [...] Follow up: with his PCP and the [place] quitline, 802QUITS Patient not ready to quit at this time. Follow up: X It is strongly recommended that the patient be discharged to home on Tobacco Treatment medication(s) as recommended above and follow up with either PCP and/or Quit line [id number]. X These recommendations have been discussed with the patient's primary team. DARCY STALEY APRN, CTTS-M Pager #[phone] [facility] Thoracic [facility] Time spent [...] Past 30 Days: None at [facility], nor at outside hospitals, per pt's report. 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 I've been disabled for five years due to Fibromyalgia and Arthritis. Home Environment: Lives with his , Dasia in [place], [place]. Social & Family Supports/Community Resources: Dasia Coelho (Spouse) [address] [facility] [address] (H) [phone] (M) Behavioral Health History: Per pt report, [...] Coverage: Yes, has Silver Script. Preferred Pharmacy: [facility] - [place], [place] - [address] [place] [address] ? [address] [facility] [address] ? Not a 24 hour pharmacy; exact hours not known Other: None Primary Care Provider: Coni Lim MD [phone] Patient/Caregiver Goals of Treatment: To return home and to his normal activities. Potential Needs for Transition of Care: Rehab/SNF: Pt has never been a pt in a rehab setting. Home Health: [facility] in the past (after right knee surgery). DME: Cane at home (doesn't consistently use it). Dialysis: N/A Community Resources: None Transportation: I may need RCT transportation. My car is in [facility] parking lot. I havethe only set of keys. Other: None Anticipated Barriers to Discharge/Special Considerations: No barriers noted at this time. Plan: A member of the Care Management team will continue to monitor progress, follow for continuity of care and assist with transition of care planning. SON MARLEY, RN Pager: [phone] * Plan of Care - Christy Medina [...] Radiograph today, Echo and Cardiac Enzymes Pending Architectural Draftsman ? Thursday more likely Thursday (pt. Informed) [...] online chart. Telemetry Report: 757: Intermittent SA, [place] 0.17, QRS 0.08, RR 0.75, QT 0.35, [...] ability. Romeo Weineroney was offered copies of [facility] publications; Are You a Hospital Inpatient or Outpatient?and Medicare Rights and Protections. Notice has been signed along with date and time, a copy of notice made and given to patient/account service representative. Original notice to be scanned [...] Procedure Name Priority Date/Time Associated Diagnosis Comments BREAKER TENDER SCAN 11/26/2016 12:00 AM EDT POCT GLUCOSE [...] Routine 11/22/2016 7:45 PM EDT CARDIAC ENZYMES ([facility]) Routine 11/22/2016 5:11 PM EDT APTT STAT 11/22/2016 5:11 PM EDT POCT GLUCOSE Routine 11/22/2016 4:50 PM EDT ECHO COMPLETE W CONTRAST Routine 11/22/2016 12:59 PM EDT Unstable angina POCT GLUCOSE Routine 11/22/2016 12:11 PM EDT CARDIAC ENZYMES ([facility]) STAT 11/22/2016 10:06 AM EDT APTT Routine [...] 17 3:58 AM EDT CARDIAC ENZYMES ([facility]) Routine 11/22/2016 3:58 AM EDT APTT STAT [...] in this encounter Results * SCAN DOC: BREAKER TENDER (11/26/2016 12:00 AM EDT) Anatomical Region Laterality [...] CARE TEST O RDERABLES Performing Organization Address [facility] Co de Phone Number [facility] [place] [address] * EKG 12 Lead (11/25/2016 7:23 AM EDT) Ventricular rate 70 BPM MUSE SYSTEM Atrial Rate 70 BPM MUSE SYSTEM P-R Interval 140 ms MUSE SYSTEM QRS Duration 88 ms MUSE SYSTEM Q-T Interval 388 ms MUSE SYSTEM QTC Calculated (Bezet) 419 ms MUSE SYSTEM Calculated P [place] 3 degrees MUSE SYSTEM Calculated R [place] 19 degrees MUSE SYSTEM Calculated T [place] 42 degrees MUSE SYSTEM INTERPRETATION Normal sinus rhythm Normal ECG When compared with ECG of 24-NOV-2016 19:05, (unconfirmed) No significant change was found I personally reviewed the tracing and edited the fellows interpretation Confirmed by fellow MD Kalin, Nessa Lee ([id number]) on 11/25/2016 10:44:22 AM Confirmed by MD Meli, Tigre ([id number]) on 11/25/2016 5:24:33 PM MUSE SYSTEM 11/25/2016 7:23 AM EDT 11/25/2016 5:24 PM EDT Roque Sanches MD ECG ORDERABLES Performing Organization Address [facility] Co de Phone Number MUSE SYSTEM * Cardiac Enzymes (11/25/2016 4:52 AM EDT) Troponin-T <0.03 <=0.03 ng/mL [facility] Comment: 0.03 ng/mL: Represents the 99th percentile upper reference limit for normals. >0.03 ng/mL: Elevated cardiac troponin T level indicative of myocardial damage. Diagnosis of acute, evolving or recent LA requires a typical rise and gradual fall [...] consensus document of the Joint Society of Cardiology/[place] College of Cardiology Committee for the redefinition of myocardial infarction. ??Journal of the [place] College of Cardiology 2000; 36: 959-969] Creatine Kinase 139 0 - 200 unit/L [facility] Comment:result rechecked-sb Blood specimen (specimen) Venous Draw / Unknown 11/25/2016 4:52 AM EDT 11/25/2016 5:41 AM EDT Narrative Resulting Agency Comment Spec In Lab Roque Sanches MD CHEMISTRY ORDERABLES [facility] [place] [address] * Differential, Automated (11/25/2016 4:52 AM EDT) Neutrophil % 61.6 % [facility] Neutrophil Absolute 5.56 1.70 - 6.10 x10(3)/[facility] LABORATORY Lymph % 26.8 % [facility] Lymphocytes Abs 2.4 0.9 - 3.2 x10(3)/[facility] Monocyte % 6.3 % [facility] Monocyte Abs 0.6 0.3 - 0.9 x10(3)/[facility] LAB[facility] Eos % 4.1 % [facility] Eosinophils Abs 0.4 0.0 - 0.4 x10(3)/[facility] Basophil % 0.8 % [facility] Baso Absolute 0.1 0.0 - 0.1 x10(3)/[facility] Immature Gran % 0.40 % [facility] Comment: Immature granulocytes(IG's)percentage and absolute count will include metamyelocytes, myelocytes, and promyelocytes. Blood smears from CBCs yielding IG's will be scanned manually for concordance. If this scan disagrees with the automated IG or if promyelocytes are noted, a manual differential will be performed. Immature Gran Absolute 0.04 0.00 - 0.04 x10(3)/[facility] LAB[facility] Blood specimen (specimen) 11/25/2016 4:52 AM EDT 11/25/2016 5:37 AM EDT Narrative Resulting Agency Comment Spec In Lab Roque Sanches MD HEMATOLOGY ORDERABLE S [facility] [place] [address] * (ABNORMAL) Hemogram (11/25/2016 4:52 AM EDT) White Blood Cell 9.0 4.0 - 9.5 x10(3)/[facility] LABORATORY Red Blood Cell 5.04 4.58 - 5.54 x10(6)/[facility] LAB[facility]ORY Hemoglobin 14.5 13.7 - 16.5 gm/dL [facility] Hematocrit 44.2 40.5 - 48.5 % [facility] Mean Cell Volume 87.7 82.9 - 93.1 [facility] LABORATORY Mean Cell Hemoglobin 28.8 27.5 - 32.1 pg [facility] Mean Cell Hemoglobin Concentration 32.8 32.0 - 35.7 gm/dL [facility] Platelet 214 145 - 357 x10(3)/[facility] LABORATORY RDW Standard Deviation 45.1(H) 36.0 - 45.0 [facility] LABORATORY RDW coefficient of variation 14.0(H) 11.4 - 13.8 % [facility] Mean Platelet Volume 11.1 7.6 - 12.9 [facility] LABORATORY NRBC% auto 0.0 % [facility] NRBC Absolute 0.000 0.000 - 0.000 x10(3)/[facility] LAB[facility]ORY Blood specimen (specimen) 11/25/2016 4:52 AM EDT 11/25/2016 5:37 AM EDT Narrative Resulting Agency Comment Spec In Lab Roque Sanches MD HEMATOLOGY ORDERABLE S [facility] [place] [address] * (ABNORMAL) BMP w/fasting Glucose (11/25/2016 4:52 [...] of Diabetes Mellitus, Position Statement from the [place] Diabetes Association. ??Diabetes Care, Volume 33, Supplement 1, Aug 2009 Blood Urea Nitrogen 10 10 - 20 mg/dL [facility] Creatinine 0.87 0.80 - 1.50 mg/dL [facility] Comment: Please note that the pediatric reference intervals supplied above were not validated at [facility]. Results from pediatric patients should be interpreted [...] LABORATORY Est Glomerular Filtration Rate >60 >=60 [facility] Comment: This estimated GFR (eGFR) [...] the following links into your internet browser. [email or web address] Blood specimen (specimen) 11/25/2016 4:52 AM EDT 11/25/2016 5:37 AM EDT Narrative Resulting Agency Comment Spec In Lab Roque Sanches MD CHEMISTRY ORDERABLES Performing Organization Address City/State/[facility] Co de Phone Number [facility] [place] [address] * EKG 12 Lead (11/24/2016 7:05 PM EDT) Ventricular rate 85 BPM MUSE SYSTEM Atrial Rate 85 BPM MUSE SYSTEM P-R Interval 152 ms MUSE SYSTEM QRS Duration 86 ms MUSE SYSTEM Q-T Interval 354 ms MUSE SYSTEM QTC Calculated (Bezet) 421 ms MUSE SYSTEM Calculated P [place] 55 degrees MUSE SYSTEM Calculated R [place] 44 degrees MUSE SYSTEM Calculated T [place] 40 degrees MUSE SYSTEM INTERPRETATION Normal sinus [...] Modality Other Narrative 11/24/2016 6:23 PM EDT ?[facility] ? Cardiac Catheterization/Intervention Report ? Patient Name: Coelho, Romeo A. ? Procedure Date: 11/24/2016 ? A #: [id number] ? Primary Physician: Anton Horvath ? Case #: [id number] ? File Name: [id number] ? Catheterization Order Number: [id number] ? [facility] ? Final Report [place], [place] ? Patient Name: ? Romeo Coelho ? ID#: ?[id number] ? : ?1965 ? Procedure Date: ? November 24, 2016 ?Case #: ? [id number] ? Room: ? 6 ? Case Physician: ? Anton Horvath MSkyler. ?Start: ?17:26 ?Fellow: ? Katia Quiroz M.D. [...] presented with: unstable angina (w/i 60 days). [place] ?Cardiovascular Society angina class was III. This [...] medical regimen was changed as ?follows: Continue transliterator aspirin and plavix. ? Comments: ?Classic anginal symptoms refractory to medications. ?The attending physician was present for the entire procedure. ?Dr. Anton Horvath M.D. performed the coronary angiography, left heart ?catheterization and stent insertion-coronary. ? Anton Horvath M.D. ? Electronically Signed by: Anton Horvath M.D. ? Report Finalized: 11/24/2016 ??18:17 ? Report Last Ammended: 11/25/2016 ??11:39 ? Procedure Note Anton Hovrath MD - 11/25/2016 [facility] Cardiac Catheterization/Intervention Report Patient Name: Romeo CoelhoNatalie Procedure Date: 11/24/2016 A #: [id number] Primary Physician: Anton Horvath Case #: [id number] File Name: [id number] Catheterization Order Number: [id number] [facility] FinalReport [place], [place] Patient Name: Romeo Coelho ID#:[id number] :1965 Procedure Date: November 24, 2016 Case [...] presented with: unstable angina (w/i 60 days). [place] Cardiovascular Society angina class was III. This [...] time was 8.0 minutes, dose area product [id number] mGYcm2 and air kerma was 1,689 mGY. [...] medical regimen was changed as follows: Continue transliterator aspirin and plavix. Comments: Classic anginal symptoms [...] RDERABLES [facility] [place] [address] * POCT Glucose (11/24/2016 11:56 AM EDT) Glucose, POC 110 65 - 199 mg/dL [facility] Comment: Supplemental ranges: <140 mg/dL before meals <180 mg/dL all other times of the day Blood specimen (specimen) 11/24/2016 11:56 AM EDT 11/24/2016 11:56 AM EDT Roque Sanches MD POINT OF CARE TEST O EVITA Performing Organization Address [facility] Co de Phone Number [facility] [place] [address] * POCT Glucose (11/24/2016 7:43 AM EDT) Glucose, POC 131 65 - 199 mg/dL [facility] Comment: Supplemental ranges: <140 mg/dL before meals <180 mg/dL all other times of the day Blood specimen (specimen) 11/24/2016 7:43 AM EDT 11/24/2016 7:43 AM EDT Roque Sanches MD POINT OF CARE TEST O RDERABLES Performing Organization Address [facility] de Phone Number [facility] [place] [address] * EKG 12 Lead (11/24/2016 7:20 AM EDT) Ventricular rate 65 BPM MUSE SYSTEM Atrial Rate 65 BPM MUSE SYSTEM P-R Interval 158 ms MUSE SYSTEM QRS Duration 90 ms MUSE SYSTEM Q-T Interval 396 ms MUSE SYSTEM QTC Calculated (Bezet) 411 ms MUSE SYSTEM Calculated P [place] 51 degrees MUSE SYSTEM Calculated R [place] 26 degrees MUSE SYSTEM Calculated T [place] 24 degrees MUSE SYSTEM INTERPRETATION Normal sinus rhythm Normal ECG When compared with ECG of 23-NOV-2016 07:16, No significant change was found I personally reviewed the tracing and edited the fellows interpretation Confirmed by fellow MD Kalin, Nessa Lee ([id number]) on 11/24/2016 8:23:27 AM Confirmed by MD Margoth, Rajni ([id number]) on 11/24/2016 6:22:34 PM MUSE SYSTEM 11/24/2016 7:20 AM EDT 11/24/2016 6:22 PM EDT Roque Sanches MD ECG ORDERABLES MUSE SYSTEM * (ABNORMAL) Differential, Automated (11/24/2016 6:20 AM EDT) Neutrophil % 54.5 % [facility] Neutrophil Absolute 4.85 1.70 - 6.10 x10(3)/[facility] LAB[facility] Lymph % 31.5 % [facility] Lymphocytes Abs 2.8 0.9 - 3.2 x10(3)/[facility] LABOR[facility] Monocyte % 8.1 % [facility] Monocyte Abs 0.7 0.3 - 0.9 x10(3)/[facility] LABOR[facility]ORY Eos % 4.4 % [facility] Eosinophils Abs 0.4 0.0 - 0.4 x10(3)/[facility] LABOR[facility]ORY Basophil % 0.9 % [facility] Baso Absolute 0.1 0.0 - 0.1 x10(3)/[facility] LABOR[facility]ORY Immature Gran % 0.60 % [facility] Comment: Immature granulocytes(IG's)percentage and absolute count will include metamyelocytes, myelocytes, and promyelocytes. Blood smears from CBCs yielding IG's will be scanned manually for concordance. If this scan disagrees with the automated IG or if promyelocytes are noted, a manual differential will be performed. Immature Gran Absolute 0.05(H) 0.00 - 0.04 x10(3)/[facility] LAB[facility]ORY Blood specimen (specimen) 11/24/2016 6:20 AM EDT 11/24/2016 6:34 AM EDT Narrative Resulting Agency Comment Spec In Lab Drew Pepe MD HEMATOLOGY ORDERABLE S Performing Organization Address City/[facility]/ZIP Co de Phone Number [facility] [place] [address] * (ABNORMAL) Hemogram (11/24/2016 6:20 AM EDT) White Blood Cell 8.9 4.0 - 9.5 x10(3)/ L [facility] Red Blood Cell 4.93 4.58 - 5.54 x10(6)/mc L [facility] Hemoglobin 14.7 13.7 - 16.5 gm/dL [...] CENTER LABORATORY Platelet 203 145 - 357 x10(3)/[facility] LAB[facility]ORY RDW Standard Deviation 44.3 36.0 - 45.0 [facility] LABORATORY RDW coefficient of variation 13.9(H) 11.4 - 13.8 % [facility] Mean Platelet Volume 11.0 7.6 - 12.9 [facility] LABORATORY NRBC% auto 0.0 % [facility] NRBC Absolute 0.000 0.000 - 0.000 x10(3)/[facility] LAB[facility] Blood specimen (specimen) 11/24/2016 6:20 AM EDT 11/24/2016 6:34 AM EDT Narrative Resulting Agency Comment Spec In Lab Drew Pepe MD HEMATOLOGY ORDERABLE S [facility] [place] [address] * (ABNORMAL) APTT (11/24/2016 6:20 AM EDT) [facility] Signature Partial Thromboplastin Time 110(H) 25 - 35 sec [facility] Comment: The recommended therapeutic range for full dose, unfractionated heparin at [facility] is 80 ? 114 seconds. The use of the anti-Xa (heparin) level rather than the PTT is recommended for monitoring anticoagulation intensity in critically ill patients receiving unfractionated heparin by continuous IV infusion. Blood specimen (specimen) 11/24/2016 6:20 AM EDT 11/24/2016 6:34 AM EDT Narrative Resulting Agency Comment Spec In Lab Drew Pepe MD HEMATOLOGY ORDERABLE S Performing Organization Address City/[facility]/ZIP Co de Phone Number [facility] [place] [address] * (ABNORMAL) APTT (11/23/2016 11:27 PM EDT) Partial Thromboplastin Time 130(H) 25 - 35 sec [facility] Comment: The recommended therapeutic range for full dose, unfractionated heparin at [facility] is 80 ? 114 seconds. The use of the anti-Xa (heparin) level rather than the PTT is recommended for monitoring anticoagulation intensity in critically ill patients receiving unfractionated heparin by continuous IV infusion. Blood specimen (specimen) 11/23/2016 11:27 PM EDT 11/23/2016 11:30 PM EDT Narrative Resulting Agency Comment Spec In Lab Drew Pepe MD HEMATOLOGY ORDERABLE S Performing Organization Address [facility]/ZIP Co de Phone Number [facility] [place] [address] * POCT Glucose (11/23/2016 7:36 PM EDT) Glucose, POC 131 65 - 199 mg/dL [facility] Comment: Supplemental ranges: <140 mg/dL before meals <180 mg/dL all other times of the day Blood specimen (specimen) 11/23/2016 7:36 PM EDT 11/23/2016 7:36 PM EDT Roque Sanches MD POINT OF CARE TEST O RDERABLES [facility] [place] [address] * POCT Glucose (11/23/2016 5:20 PM EDT) Glucose, POC 107 65 - 199 mg/dL [facility] Comment: Supplemental ranges: <140 mg/dL before meals <180 mg/dL all other times of the day Blood specimen (specimen) 11/23/2016 5:20 PM EDT 11/23/2016 5:20 PM EDT Roque Sanches MD POINT OF CARE TEST O RDERABLES Performing Organization Address [facility] Co de Phone Number [facility] [place] [address] * (ABNORMAL) APTT (11/23/2016 12:39 PM EDT) [facility] Partial Thromboplastin Time 68(H) 25 - 35 sec [facility] Comment: The recommended therapeutic range for full dose, unfractionated heparin at [facility] is 80 ? 114 seconds. The use of the anti-Xa (heparin) level rather than the PTT is recommended for monitoring anticoagulation intensity in critically ill patients receiving unfractionated heparin by continuous IV infusion. Blood specimen (specimen) 11/23/2016 12:39 PM EDT 11/23/2016 12:51 PM EDT Narrative Resulting Agency Comment Spec In Lab Roque Sanches MD HEMATOLOGY ORDERABLE S Performing Organization Address [facility] Co de Phone Number [facility] [place] [address] * POCT Glucose (11/23/2016 11:47 AM EDT) Glucose, POC 116 65 - 199 mg/dL [facility] Comment: Supplemental ranges: <140 mg/dL before meals <180 mg/dL all other times of the day Blood specimen (specimen) 11/23/2016 11:47 AM EDT 11/23/2016 11:47 AM EDT Rouqe Sanches MD POINT OF CARE TEST O RDERABLES Performing Organization Address [facility] Co de Phone Number [facility] [place] [address] * POCT Glucose (11/23/2016 7:36 AM EDT) Glucose, POC 122 65 - 199 mg/dL [facility] Comment: Supplemental ranges: <140 mg/dL before meals <180 mg/dL all other times of the day Blood specimen (specimen) 11/23/2016 7:36 AM EDT 11/23/2016 7:36 AM EDT Roque Sanches MD POINT OF CARE TEST O RDERABLES Performing Organization Address [facility] de Phone Number [facility] [place] [address] * EKG 12 Lead (11/23/2016 7:16 AM EDT) Ventricular rate 72 BPM MUSE SYSTEM Atrial Rate 72 BPM MUSE SYSTEM P-R Interval 158 ms MUSE SYSTEM QRS Duration 90 ms MUSE SYSTEM Q-T Interval 382 ms MUSE SYSTEM QTC Calculated (Bezet) 418 ms MUSE SYSTEM Calculated P [place] 47 degrees MUSE SYSTEM Calculated R [place] 28 degrees MUSE SYSTEM Calculated T [place] 32 degrees MUSE SYSTEM INTERPRETATION Normal sinus rhythm Normal ECG When compared with ECG of 22-NOV-2016 07:12, No significant change was found Confirmed by MD ANIVAL, DEBORAH ([id number]) on 11/23/2016 1:58:05 PM MUSE SYSTEM 11/23/2016 7:16 AM EDT 11/23/2016 1:58 PM EDT Roque Sanches MD ECG ORDERABLES Performing Organization Address [facility] Co de Phone Number MUSE SYSTEM [...] of Diabetes Mellitus, Position Statement from the [place] [employer]. ??Diabetes Care, Volume 33, Supplement 1, Aug 2009 Blood Urea Nitrogen 10 10 - 20 mg/dL [facility] Creatinine 0.98 0.80 - 1.50 mg/dL [facility] Comment: Please note that the pediatric reference intervals supplied above were not validated at [facility]. Results from pediatric patients should be interpreted [...] LABORATORY Est Glomerular Filtration Rate >60 >=60 [facility] Comment: This estimated GFR (eGFR) [...] the following links into your internet browser. [email or web address] Blood specimen (specimen) 11/23/2016 6:24 AM EDT 11/23/2016 6:32 AM EDT Narrative Resulting Agency Comment Spec In Lab Roque Sanches MD CHEMISTRY ORDERABLES Performing Organization Address [facility] Co de Phone Number [facility] [place] [address] * (ABNORMAL) APTT (11/23/2016 6:24 AM EDT) Pathologist [facility] Partial Thromboplastin Time 103(H) 25 - 35 sec [facility] Comment: The recommended therapeutic range for full dose, unfractionated heparin at [facility] is 80 ? 114 seconds. The use of the anti-Xa (heparin) level rather than the PTT is recommended for monitoring anticoagulation intensity in critically ill patients receiving unfractionated heparin by continuous IV infusion. Blood specimen (specimen) 11/23/2016 6:24 AM EDT 11/23/2016 6:32 AM EDT Narrative Resulting Agency Comment Spec In Lab Drew Pepe MD HEMATOLOGY ORDERABLE S Performing Organization Address [facility] de Phone Number [facility] [place] [address] * Differential, Automated (11/23/2016 6:24 AM EDT) [facility] Neutrophil % 58.2 % [facility] Neutrophil Absolute 4.63 1.70 - 6.10 x10(3)/[facility] LABORATORY Lymph % 29.0 % [facility] Lymphocytes Abs 2.3 0.9 - 3.2 x10(3)/[facility] LABORATORY Monocyte % 7.3 % [facility] Monocyte Abs 0.6 0.3 - 0.9 x10(3)/[facility] LABORATORY Eos % 4.1 % [facility] Eosinophils Abs 0.3 0.0 - 0.4 x10(3)/[facility] LABORATORY Basophil % 1.0 % [facility] Baso Absolute 0.1 0.0 - 0.1 x10(3)/[facility] LABORATORY Immature Gran % 0.40 % [facility] Comment: Immature granulocytes(IG's)percentage and absolute count will include metamyelocytes, myelocytes, and promyelocytes. Blood smears from CBCs yielding IG's will be scanned manually for concordance. If this scan disagrees with the automated IG or if promyelocytes are noted, a manual differential will be performed. Immature Gran Absolute 0.03 0.00 - 0.04 x10(3)/[facility] LABORATORY Blood specimen (specimen) 11/23/2016 6:24 AM EDT 11/23/2016 6:32 AM EDT Narrative Resulting Agency Comment Spec In Lab Drew Pepe MD HEMATOLOGY ORDERABLE S Performing Organization Address City/State/[facility] Co de Phone Number [facility] [place] [address] * (ABNORMAL) Hemogram (11/23/2016 6:24 AM EDT) White Blood Cell 8.0 4.0 - 9.5 x10(3)/[facility] LABORATORY Red Blood Cell 5.00 4.58 - 5.54 x10(6)/[facility] LAB[facility]ATORY Hemoglobin 14.5 13.7 - 16.5 gm/dL [...] CENTER LABORATORY Platelet 207 145 - 357 x10(3)/[facility] LAB[facility] RDW Standard Deviation 44.5 36.0 - 45.0 fL [facility] RDW coefficient of variation 14.0(H) 11.4 - 13.8 % [facility] Mean Platelet Volume 10.4 7.6 - 12.9 fL [facility] NRBC% auto 0.0 % [facility] NRBC Absolute 0.000 0.000 - 0.000 x10(3)/mc L [facility] Blood specimen (specimen) 11/23/2016 6:24 AM EDT 11/23/2016 6:32 AM EDT Narrative Resulting Agency Comment Spec In Lab Drew Pepe MD HEMATOLOGY ORDERABLE S Performing Organization Address [facility]/ZIP Co de Phone Number [facility] [place] [address] * (ABNORMAL) APTT (11/23/2016 12:03 AM EDT) Partial Thromboplastin Time 116(H) 25 - 35 sec [facility] Comment: The recommended therapeutic range for full dose, unfractionated heparin at [facility] is 80 ? 114 seconds. The use of the anti-Xa (heparin) level rather than the PTT is recommended for monitoring anticoagulation intensity in critically ill patients receiving unfractionated heparin by continuous IV infusion. Blood specimen (specimen) 11/23/2016 12:03 AM EDT 11/23/2016 12:07 AM EDT Narrative Resulting Agency Comment Spec In Lab Drew Pepe MD HEMATOLOGY ORDERABLE S Performing Organization Address [facility] Co de Phone Number [facility] [place] [address] * POCT Glucose (11/22/2016 7:45 PM EDT) Glucose, POC 102 65 - 199 mg/dL [facility] Comment: Supplemental ranges: <140 mg/dL before meals <180 mg/dL all other times of the day Blood specimen (specimen) 11/22/2016 7:45 PM EDT 11/22/2016 7:45 PM EDT Roque Sanches MD POINT OF CARE TEST O RDERABLES Performing Organization Address City/State/[facility] Co de Phone Number [facility] [place] [address] * Cardiac Enzymes (11/22/2016 5:11 PM EDT) [facility] Troponin-T <0.03 <=0.03 ng/mL [facility] Comment: 0.03 ng/mL: Represents the 99th percentile upper reference limit for normals. >0.03 ng/mL: Elevated cardiac troponin T level indicative of myocardial damage. Diagnosis of acute, evolving or recent LA requires a typical rise and gradual fall [...] consensus document of the Joint Society of Cardiology/[place] [employer] Committee for the redefinition of myocardial infarction. ??Journal of the [place] College of Cardiology 2000; 36: 959-969] Creatine Kinase 46 0 - 200 unit/L [facility] Blood specimen (specimen) 11/22/2016 5:11 PM EDT 11/22/2016 5:15 PM EDT Narrative Resulting Agency Comment Spec In Lab Roque Sanches MD CHEMISTRY ORDERABLES Performing Organization Address [facility] Co de Phone Number [facility] [place] [address] * (ABNORMAL) APTT (11/22/2016 5:11 PM EDT) [facility] Partial Thromboplastin Time 76(H) 25 - 35 sec [facility] Comment: The recommended therapeutic range for full dose, unfractionated heparin at [facility] is 80 ? 114 seconds. The use of the anti-Xa (heparin) level rather than the PTT is recommended for monitoring anticoagulation intensity in critically ill patients receiving unfractionated heparin by continuous IV infusion. Blood specimen (specimen) 11/22/2016 5:11 PM EDT 11/22/2016 5:15 PM EDT Narrative Resulting Agency Comment Spec In Lab Drew Pepe MD HEMATOLOGY ORDERABLE S Performing Organization Address [facility] Co de Phone Number [facility] [place] [address] * POCT Glucose (11/22/2016 4:50 PM EDT) Glucose, POC 100 65 - 199 mg/dL [facility] Comment: Supplemental ranges: <140 mg/dL before meals <180 mg/dL all other times of the day Blood specimen (specimen) 11/22/2016 4:50 PM EDT 11/22/2016 4:50 PM EDT Roque Sanches MD POINT OF CARE TEST O RDERABLES Performing Organization Address [facility] Co de Phone Number [facility] [place] [address] * ECHO COMPLETE W CONTRAST (11/22/2016 12:59 PM EDT) EF 60 HEARTLAB SYSTEM Anatomical Region Laterality Modality Other 11/22/2016 Narrative 11/22/2016 1:38 PM EDT Procedure: ?Transthoracic Echocardiogram Patient: ?COELHO ROMEO A ? (Age): 1965(51y) Med Rec#: ? [id number] ?Sex: ?M ? Site Loc: ? [facility] ?Ht / Wt: ??178(cm)/95(kg) Pt. Loc: ?Adult Floor ? BSA: ?2.13 Study Date: ?? 11/22/2016 ?Pt. Type: Inpatient Tape: ? Referring: Roque Sanches ([id number]) Reading: Roque Sanches ([id number]) Port Surveyor: Jorge A Street Diagnosis: *ICD-10-PCS Unstable angina (I20.0) CPT Codes: *Echo Full (20659) *Spectral Doppler (56153) *Color Doppler (61914) *Optison ([id number]) Rhythm: ? Sinus BP: ? 113/70 SUMMARY: [...] E-wave Vmax ?0.5 ?m/sec ? MV deceleration [id number] ?msec ? MV A-wave Vmax ?0.4 ?m/sec [...] Mid-Inferior ?Normal ? Mid-Inferoseptal ?Normal ? [place]-Septal ? Normal ? [place]-Anterior ? Normal ? [place]-Lateral ?Normal ? [place]-Inferior ? Normal ? [place]-Tip ?Normal ? This report has been electronically signed by: Roque Mulugeta. Myron M.D. ? 11/22/2016 13:38:29 Images reviewed and interpretation verified [facility] Cardiac Ultrasound Laboratory Procedure Note Roque Sanches MD - 11/22/2016 Procedure: Transthoracic Echocardiogram Patient: LAQUITA Pop DOB(Age): 1965(51y) Med Rec#: [id number] Sex: M Site Loc: [facility] Ht / Wt: 178(cm)/95(kg) Pt. Loc: Adult Floor BSA: 2.13 Study Date: 11/22/2016 Pt. Type: Inpatient Tape: Referring: Roque Sanches ([id number]) Reading: Roque Sanches () Port Surveyor: Jorge A Street Diagnosis: *ICD-10-PCS Unstable angina (I20.0) CPT Codes: *Echo Full (48395) *Spectral Doppler (85983) *Color Doppler (74320) *Optison ([id number]) Rhythm: Sinus BP: 113/70 SUMMARY: 1. The [...] MV E-wave Vmax 0.5 m/sec MV deceleration [id number] msec MV A-wave Vmax 0.4 m/sec MV [...] Hypokinetic Mid-Posterolateral Hypokinetic Mid-Inferior Normal Mid-Inferoseptal Normal [place]-Septal Normal [place]-Anterior Normal [place]-Lateral Normal [place]-Inferior Normal [place]-Tip Normal This report has been electronically signed by: Roque Sanches M.D. 11/22/2016 13:38:29 Images reviewed and interpretation verified [facility] Cardiac Ultrasound Laboratory Drew Pepe MD [...] CARE TEST O RDERABLES Performing Organization Address [facility]/ZIP Co de Phone Number [facility] [place] [address] * Potassium (11/22/2016 10:06 AM EDT) Potassium [...] Pepe MD CHEMISTRY ORDERABLES Performing Organization Address [facility] Co de Phone Number [facility] [place] [address] * Cardiac Enzymes (11/22/2016 10:06 AM EDT) Troponin-T <0.03 <=0.03 ng/mL [facility] Comment: 0.03 ng/mL: Represents the 99th percentile upper reference limit for normals. >0.03 ng/mL: Elevated cardiac troponin T level indicative of myocardial damage. Diagnosis of acute, evolving or recent LA requires a typical rise and gradual fall [...] consensus document of the Joint Society of Cardiology/[place] [employer] Committee for the redefinition of myocardial infarction. ??Journal of the [place] College of Cardiology 2000; 36: 959-969] Creatine Kinase 48 0 - 200 unit/L [facility] Blood specimen (specimen) 11/22/2016 10:06 AM EDT 11/22/2016 10:16 AM EDT Narrative Resulting Agency Comment Spec In Lab Drew Pepe MD CHEMISTRY ORDERABLES Performing Organization Address [facility] Co de Phone Number [facility] [place] [address] * (ABNORMAL) APTT (11/22/2016 10:06 AM EDT) [facility] Signature Partial Thromboplastin Time 104(H) 25 - 35 sec [facility] Comment: The recommended therapeutic range for full dose, unfractionated heparin at [facility] is 80 ? 114 seconds. The use of the anti-Xa (heparin) level rather than the PTT is recommended for monitoring anticoagulation intensity in critically ill patients receiving unfractionated heparin by continuous IV infusion. Blood specimen (specimen) 11/22/2016 10:06 AM EDT 11/22/2016 10:16 AM EDT Narrative Resulting Agency Comment Spec In Lab Roque Sanches MD HEMATOLOGY ORDERABLE S Performing Organization Address [facility] Co de Phone Number [facility] [place] [address] * XR Chest PA & Lateral (Generic) [...] CARE TEST O RDERABLES Performing Organization Address City/[facility] Co de Phone Number [facility] [place] [address] * EKG 12 Lead (11/22/2016 7:12 AM EDT) Ventricular rate 74 BPM MUSE SYSTEM Atrial Rate 74 BPM MUSE SYSTEM P-R Interval 146 ms MUSE SYSTEM QRS Duration 92 ms MUSE SYSTEM Q-T Interval 382 ms MUSE SYSTEM QTC Calculated (Bezet) 424 ms MUSE SYSTEM Calculated P [place] 34 degrees MUSE SYSTEM Calculated R [place] 26 degrees MUSE SYSTEM Calculated T [place] 27 degrees MUSE SYSTEM INTERPRETATION Normal sinus rhythm Normal ECG When compared with ECG of 21-NOV-2016 20:34, (unconfirmed) No significant change was found Confirmed by MD Walton Douglas ([id number]) on 11/22/2016 10:51:21 AM MUSE SYSTEM 11/22/2016 7:12 AM EDT 11/22/2016 10:51 AM EDT Roque Sanches MD ECG ORDERABLES Performing Organization Address City/[facility]/ZIP Co de Phone Number MUSE SYSTEM [...] greater than or equal to 190 mg/dL. http://circ.ahajournals.org/content/early/.cir.8530609079.31300.7a Adults aged 40-75 with LDL 70-189 mg/dL should have their 10 year ASCVD risk estimated with the ACC/AHA ASCVD risk wine cellar stock clerk http://tools.acc.org/UMKTL-Ynzq-Fmfkooved/ Statin should be discussed if risk greater [...] ORDERABLES [facility] [place] [address] * Cardiac Enzymes (11/22/2016 3:58 AM EDT) Troponin-T <0.03 <=0.03 ng/mL [facility] Comment: 0.03 ng/mL: Represents the 99th percentile upper reference limit for normals. >0.03 ng/mL: Elevated cardiac troponin T level indicative of myocardial damage. Diagnosis of acute, evolving or recent LA requires a typical rise and gradual fall [...] consensus document of the Joint Society of Cardiology/[place] [employer] of [employer]iology Committee for the redefinition of myocardial infarction. ??Journal of the [place] [employer] 2000; 36: 959-969] Creatine Kinase 50 0 - 200 unit/L [facility] Blood specimen (specimen) Venous Draw / Unknown 11/22/2016 3:58 AM EDT 11/22/2016 4:13 AM EDT Narrative Resulting Agency Comment Spec In Lab Roque Sanches MD CHEMISTRY ORDERABLES [facility] [place] [address] * Differential, Automated (11/22/2016 3:58 AM EDT) Neutrophil % 56.6 % [facility] Neutrophil Absolute 4.86 1.70 - 6.10 x10(3)/[facility] Lymph % 30.3 % [facility] Lymphocytes Abs 2.6 0.9 - 3.2 x10(3)/[facility] Monocyte % 7.7 % [facility] Monocyte Abs 0.7 0.3 - 0.9 x10(3)/[facility] Eos % 4.5 % [facility] Eosinophils Abs 0.4 0.0 - 0.4 x10(3)/[facility] Basophil % 0.6 % [facility] Baso Absolute 0.0 0.0 - 0.1 x10(3)/[facility] Immature Gran % 0.30 [...] Immature Gran Absolute 0.03 0.00 - 0.04 x10(3)/[facility] Blood specimen (specimen) 11/22/2016 3:58 AM EDT 11/22/2016 4:13 AM EDT Narrative Resulting Agency Comment Spec In Lab Roque Sanches MD HEMATOLOGY ORDERABLE S Performing Organization Address City/State/[facility] Co de Phone Number [facility] [place] [address] * (ABNORMAL) Hemogram (11/22/2016 3:58 AM EDT) White Blood Cell 8.6 4.0 - 9.5 x10(3)/[facility] Red Blood Cell 4.80 4.58 - 5.54 x10(6)/[facility] Hemoglobin 13.8 13.7 - 16.5 gm/dL [...] CENTER LABORATORY Platelet 219 145 - 357 x10(3)/[facility] RDW Standard Deviation 44.7 36.0 - 45.0 fL [facility] RDW coefficient of variation 14.0(H) 11.4 - 13.8 % [facility] Mean Platelet Volume 10.9 7.6 - 12.9 fL [facility] NRBC% auto 0.0 % [facility] NRBC Absolute 0.000 0.000 - 0.000 x10(3)/mc L [facility] Blood specimen (specimen) 11/22/2016 3:58 AM EDT 11/22/2016 4:13 AM EDT Narrative Resulting Agency Comment Spec In Lab Roque Sanches MD HEMATOLOGY ORDERABLE S Performing Organization Address City/State/[facility] Co de Phone Number [facility] [place] [address] * (ABNORMAL) BMP w/fasting Glucose (11/22/2016 3:58 [...] of Diabetes Mellitus, Position Statement from the [place] [employer]. ??Diabetes Care, Volume 33, Supplement 1, Aug 2009 Blood Urea Nitrogen 10 10 - 20 mg/dL [facility] Creatinine 0.85 0.80 - 1.50 mg/dL [facility] Comment: Please note that the pediatric reference intervals supplied above were not validated [place] [facility] Results from pediatric patients should be interpreted [...] LABORATORY Est Glomerular Filtration Rate >60 >=60 [facility] Comment: This estimated GFR (eGFR) [...] the following links into your internet browser. [email or web address] Blood specimen (specimen) 11/22/2016 3:58 AM EDT 11/22/2016 4:13 AM EDT Narrative Resulting Agency Comment Spec In Lab Roque Sanches MD CHEMISTRY ORDERABLES [facility] [place] [address] * (ABNORMAL) APTT (11/22/2016 3:58 AM EDT) [facility] Partial Thromboplastin Time 44(H) 25 - 35 sec [facility] Comment: The recommended therapeutic range for full dose, unfractionated heparin at [facility] is 80 ? 114 seconds. The use of the anti-Xa (heparin) level rather than the PTT is recommended for monitoring anticoagulation intensity in critically ill patients receiving unfractionated heparin by continuous IV infusion. Blood specimen (specimen) 11/22/2016 3:58 AM EDT 11/22/2016 4:13 AM EDT Narrative Resulting Agency Comment Spec In Lab Drew Pepe MD HEMATOLOGY ORDERABLE S Performing Organization Address [facility] Co de Phone Number [facility] [place] [address] * EKG 12 Lead (11/21/2016 8:34 PM EDT) Ventricular rate 72 BPM MUSE SYSTEM Atrial Rate 72 BPM MUSE SYSTEM P-R Interval 138 ms MUSE SYSTEM QRS Duration 86 ms MUSE SYSTEM Q-T Interval 382 ms MUSE SYSTEM QTC Calculated (Bezet) 418 ms MUSE SYSTEM Calculated P [place] -2 degrees MUSE SYSTEM Calculated R [place] 16 degrees MUSE SYSTEM Calculated T [place] 16 degrees MUSE SYSTEM INTERPRETATION Normal sinus rhythm Normal ECG When compared with ECG of 30-JUL-2013 08:41, No significant change was found Confirmed by MD Walton Douglas ([id number]) on 11/22/2016 10:49:32 AM MUSE SYSTEM 11/21/2016 8:34 PM EDT 11/22/2016 10:49 AM EDT Drew Pepe MD ECG ORDERABLES Performing Organization Address [facility] de Phone Number MUSE SYSTEM * Hemoglobin [...] Mellitus, Diabetes Care 2013; 36: Suppl. 1, X41-89 Estimated Average Glucose 114 mg/dL [facility] [...] resources are available on the ADA website: [email or web address] Ashok PIMENTEL, Abdulkadir Tenorio, Jamie R, et al. ??Translating the A1C assay into estimated average glucose values. ??Diabetes Care 2008:31(8):7157-3360. Blood specimen (specimen) Venous Draw / Unknown 11/21/2016 8:32 PM EDT 11/22/2016 12:39 AM EDT Narrative Resulting Agency Comment Spec In Lab Drew Pepe MD CHEMISTRY ORDERABLES [facility] [place] [address] * TSH (11/21/2016 8:32 PM EDT) Thyroid Stimulating Hormone 2.29 0.27 - 4.20 mcIU/mL [facility] Blood specimen (specimen) Venous Draw / Unknown 11/21/2016 8:32 PM EDT 11/21/2016 8:40 PM EDT Narrative Resulting Agency Comment Spec In Lab Drew Pepe MD CHEMISTRY ORDERABLES Performing Organization Address City/[facility]/ZIP Co de Phone Number [facility] [place] [address] * (ABNORMAL) Differential, Automated (11/21/2016 8:32 PM EDT) Neutrophil % 38.3 % [facility] Neutrophil Absolute 3.02 1.70 - 6.10 x10(3)/mc L [facility] Lymph % 48.7 % [facility] Lymphocytes Abs 3.8(H) 0.9 - 3.2 x10(3)/mc L [facility] Monocyte % 7.3 % [facility] Monocyte Abs 0.6 0.3 - 0.9 x10(3)/ L [facility] Eos % 4.4 % [facility] Eosinophils Abs 0.4 0.0 - 0.4 x10(3)/[facility] Basophil % 0.9 % [facility] Baso Absolute 0.1 0.0 - 0.1 x10(3)/ L [facility] Immature Gran % 0.40 % [facility] [...] Absolute 0.03 0.00 - 0.04 x10(3)/mc L [facility] Blood specimen (specimen) 11/21/2016 8:32 PM EDT 11/21/2016 8:37 PM EDT Narrative Resulting Agency Comment Spec In Lab Drew Pepe MD HEMATOLOGY ORDERABLE S Performing Organization Address City/[facility]/ZIP Co de Phone Number [facility] [place] [address] * Hemogram (11/21/2016 8:32 PM EDT) Pathologist [facility] White Blood Cell 7.9 4.0 - 9.5 x10(3)/[facility] Red Blood Cell 4.64 4.58 - 5.54 x10(6)/[facility] Hemoglobin 13.9 13.7 - 16.5 gm/dL [facility] Hematocrit 40.6 40.5 - 48.5 % [facility] Mean Cell Volume 87.5 82.9 - 93.1 [facility] Mean Cell Hemoglobin 30.0 27.5 - 32.1 pg [facility] Mean Cell Hemoglobin Concentration 34.2 32.0 - 35.7 gm/dL [facility] Platelet 179 145 - 357 x10(3)/[facility] RDW Standard Deviation 44.3 36.0 - 45.0 [facility] RDW coefficient of variation 13.8 11.4 - 13.8 % [facility] Mean Platelet Volume 10.8 7.6 - 12.9 [facility] NRBC% auto 0.0 % [facility] NRBC Absolute 0.000 0.000 - 0.000 x10(3)/[facility] Blood specimen (specimen) 11/21/2016 8:32 PM EDT 11/21/2016 8:37 PM EDT Narrative Resulting Agency Comment Spec In Lab Drew Pepe MD HEMATOLOGY ORDERABLE S [facility] [place] [address] * Cardiac Enzymes (11/21/2016 8:32 PM EDT) Pathologist [facility] Troponin-T <0.03 <=0.03 ng/mL [facility] Comment: 0.03 ng/mL: Represents the 99th percentile upper reference limit for normals. >0.03 ng/mL: Elevated cardiac troponin T level indicative of myocardial damage. Diagnosis of acute, evolving or recent LA requires a typical rise and gradual fall [...] consensus document of the [employer]/[place] [employer] Committee for the redefinition of myocardial infarction. ??Journal of the [place] [employer] 2000; 36: 959-969] Creatine Kinase 64 0 - 200 unit/L [facility] Blood specimen (specimen) 11/21/2016 8:32 PM EDT 11/21/2016 8:37 PM EDT Narrative Resulting Agency Comment Spec In Lab Drew Pepe MD CHEMISTRY ORDERABLES Performing Organization Address [facility] Co de Phone Number [facility] [place] [address] * APTT (11/21/2016 8:32 PM EDT) [facility] Partial Thromboplastin Time 32 25 - 35 sec [facility] Comment: The recommended therapeutic range for full dose, unfractionated heparin [place] [facility] is 80 ? 114 seconds. The use of the anti-Xa (heparin) level rather than the PTT is recommended for monitoring anticoagulation intensity in critically ill patients receiving unfractionated heparin by continuous IV infusion. Blood specimen (specimen) 11/21/2016 8:32 PM EDT 11/21/2016 8:37 PM EDT Narrative Resulting Agency Comment Spec In Lab Drew Pepe MD HEMATOLOGY ORDERABLE S Performing Organization Address City/[facility]/ZIP Co de Phone Number [facility] [place] [address] * Prothrombin Time (11/21/2016 8:32 PM EDT) [facility] Prothrombin Time 14.0 12.0 - 15.0 sec [...] MD HEMATOLOGY ORDERABLE S Performing Organization Address [facility] Co de Phone Number [facility] [place] [address] * Hepatic Function Panel (11/21/2016 8:32 PM [...] Pepe MD CHEMISTRY ORDERABLES Performing Organization Address [facility] Co de Phone Number [facility] [place] [address] * (ABNORMAL) Basic Metabolic Panel (non-fasting) (11/21/2016 [...] above were not validated [place] [facility]. Results from pediatric patients should be interpreted [...] LABORATORY Est Glomerular Filtration Rate >60 >=60 [facility] Comment: This estimated GFR (eGFR) [...] the following links into your internet browser. [email or web address] Blood specimen (specimen) 11/21/2016 8:32 PM EDT 11/21/2016 8:37 PM EDT Narrative Resulting Agency Comment Spec In Lab Drew Pepe MD CHEMISTRY ORDERABLES [facility] [place] [place] [address] * pro-Brain Natriuretic Peptide (11/21/2016 8:32 PM EDT) NT-proBNP 65 <=125 pg/mL [facility] Blood specimen (specimen) 11/21/2016 8:32 PM EDT 11/21/2016 8:37 PM EDT Narrative Resulting Agency Comment Spec In Lab Drew Pepe MD CHEMISTRY ORDERABLES Performing Organization Address [facility]/ZIP Co de Phone Number [facility] [place] [address] * POCT Glucose (11/21/2016 8:12 PM EDT) Glucose, POC 80 65 - 199 mg/dL [facility] Comment: Supplemental ranges: <140 mg/dL before meals <180 mg/dL all other times of the day Blood specimen (specimen) 11/21/2016 8:12 PM EDT 11/21/2016 8:12 PM EDT Valentín Oreilly MD POINT OF CARE TEST ORDERABLES Performing Organization Address City/[facility] Co de Phone Number [facility] [place] [address] documented in this encounter Visit Diagnoses Diagnosis Unstable angina- Primary Intermediate coronary syndrome Unstable angina Intermediate coronary syndrome DM (diabetes mellitus) Type II or unspecified type diabetes mellitus without mention of complication, not stated as uncontrolled CAD (coronary artery disease) Coronary atherosclerosis of unspecified type of vessel, wiyot or graft HTN (hypertension) Unspecified essential hypertension [...] 0814 (Given - Provider: Esha Chen RN)181 ([facility] Hold - Provider: Admin Adt - Reason: Transfer to a Procedural area)1940 ([facility] Unhold - Provider: Admin Adt) 09 (Given - Provider: Venancio Bourgeois, VERO) atorvastatin (LIPITOR) tablet 80 mg 80 mg, Oral, EVERY EVENING, First dose on 11/22/16 at 1700, Until Discontinued, Routine 162 (Given - Provider: Esha Chen RN) 165 (Given - Provider: Esha Chen RN)1811 ([facility] Hold - Provider: Admin Adt - Reason: Transfer to a Procedural area)1940 ([facility] Unhold - Provider: Admin Adt) buPROPion (WELLBUTRIN SR or ZYBAN) SR tablet 150 mg 150 mg, Oral, 2 TIMES DAILY, First dose on 11/22/16 at 0030, Until Discontinued, DO NOT CRUSH OR OPEN, Routine 0803 (Given - Provider: Esha Chen RN)2058 (Given - Provider: Christy Medina RN) 0814 (Given - Provider: Esha Chen RN)181 ([facility] Hold - Provider: Admin Adt - Reason: Transfer to a Procedural area)1940 ([facility] Unhold - Provider: Admin Adt)2107 (Given - Provider: Venice Huffman RN) 0900 (Given - Provider: Venancio Bourgeois, VERO) clopidogrel (PLAVIX) tablet 75 mg 75 mg, Oral, DAILY, First dose on 11/22/16 at 0900, Until Discontinued, Routine 0804 (Given - Provider: Esha Chen RN) 0815 (Given - Provider: Esha Chen RN)181 ([facility] Hold - Provider: Admin Adt - Reason: Transfer to a Procedural area)1940 ([facility] Unhold - Provider: Admin Adt) 0858 [...] 0815 (Given - Provider: Esha Chen RN)1811 ([facility] Hold - Provider: Admin Adt - Reason: Transfer to a Procedural area)1940 ([facility] Unhold - Provider: Admin Adt)2107 (Given [...] RN)1447 (Given - Provider: Esha Chen RN)1811 ([facility] Hold - Provider: Admin Adt - Reason: Transfer to a Procedural area)1940 ([facility] Unhold - Provider: Admin Adt) 0551 (Given - Provider: Venice Huffman, VERO) gabapentin (NEURONTIN) capsule 900 mg 900 mg, Oral, NIGHTLY, First dose on 11/22/16 at 0030, Until Discontinued, Routine 2058 (Given - Provider: Christy Medina RN) 1811 ([facility] Hold - Provider: Admin Adt - Reason: Transfer to a Procedural area)1940 ([facility] Unhold - Provider: Admin Adt)2142 (Given - [...] Chen RN - Reason: Order parameters not met)181 ([facility] Hold - Provider: Admin Adt - [...] - Reason: Transfer to a Procedural area)1940 ([facility] Unhold - Provider: Admin Adt) 08 (Given - Provider: Venancio Bourgeois, VERO) meTOPROLOL tartrate (LOPRESSOR) tablet 50 mg 50 mg, Oral, EVERY 12 HOURS SCHEDULED (2 times per day), First dose (after last modification) on 11/22/16 at 2100, Until Discontinued, Hold if HR < 60, SBP < 100, Routine 08 (Given - Provider: Esha Chen RN)2055 (Given - Provider: Christy Medina RN) 0816 (Given - Provider: Esha Chen RN)1811 ([facility] Hold - Provider: Admin Adt - Reason: Transfer to a Procedural area)1940 ([facility] Unhold - Provider: Admin Adt)2107 (Given - Provider: Venice Huffman, VERO) 899 (Given - Provider: Venancio Bourgeois, VERO) pantoprazole (PROTONIX) tablet 40 mg 40 mg, Oral, DAILY, First dose on 11/22/16 at 0900, Until Discontinued, DO NOT CRUSH OR OPEN, Routine 08 (Given - Provider: Esha Chen RN) 08 (Given - Provider: Esha Chen RN)1811 ([facility] Hold - Provider: Admin Adt - Reason: Transfer to a Procedural area)1940 ([facility] Unhold - Provider: Admin Adt) 900 (Given - Provider: Venancio Bourgeois, VERO) pramipexole (MIRAPEX) tablet 0.5 mg 0.5 mg, Oral, NIGHTLY, First dose on 11/22/16 at 0030, Until Discontinued, Routine 2058 (Given - Provider: Christy Medina RN) 1811 ([facility] Hold - Provider: Admin Adt - Reason: Transfer to a Procedural area)1940 ([facility] Unhold - Provider: Admin Adt)2107 (Given - Provider: Venice Huffman, VERO) ranolazine (RANEXA) ext-release tablet 500 mg 500 mg, Oral, 2 TIMES DAILY, First dose on 11/22/16 at 0030, Until Discontinued, DO NOT CRUSH OR OPEN. Baseline EKG required before administration., Routine, Has baseline EKG been obtained? Yes 0809 (Given - Provider: Esha Chen RN)2058 (Given - Provider: Christy Medina RN) 0817 (Given - Provider: Esha Chen RN)1811 ([facility] Hold - Provider: Admin Adt - Reason: Transfer to a Procedural area)1940 ([facility] Unhold - Provider: Admin Adt)2107 (Given [...] Until Thu11/24/16 at 2329, Recovery (Recovery-Hospital Unit) 182 (New Bag - Provider: Fany Kaplan RN) PRN Medication Order 11/23/2016 11/24/2016 11/25/2016 alum-mag hydroxide-simeth (MAALOX) 200-200-20 mg/5 mL oral suspension 10 mL 10 mL, Oral, 3 TIMES DAILY PRN, Starting on 11/23/16 at 1606, Until Tu11/25/16 at 1305, Heartburn, Routine 1618 (Given - Provider: Esha Chen RN) 1811 ([facility] Hold - Provider: Admin Adt - Reason: Transfer to a Procedural area)1940 ([facility] Unhold - Provider: Admin Adt) cyclobenzaprine (FLEXERIL) tablet 10 mg 10 mg, Oral, 3 TIMES DAILY PRN, Starting on 11/22/16 at 0013, Until Thu11/25/16 at 1305, Muscle spasms, Routine 1811 ([facility] Hold - Provider: Admin Adt - Reason: Transfer to a Procedural area)1940 ([facility] Unhold - Provider: Admin Adt) dextrose 50% [...] duration of the active insulin., Routine 1811 ([facility] Hold - Provider: Admin Adt - Reason: Transfer to a Procedural area)1940 ([facility] Unhold - Provider: Admin Adt) fentaNYL 50 [...] of the active insulin. , Routine 1811 ([facility] Hold - Provider: Admin Adt - Reason: Transfer to a Procedural area)1940 ([facility] Unhold - Provider: Admin Adt) heparin (porcine) injection 0-4,000 Units (CANCELED)(Linked Group 2) 0-4,000 Units, Intravenous, BOLUS PER HEPARIN PROTOCOL, Starting on Thu11/21/16 at 2010, Until Thu11/24/16 at 2205, Per Protocol, START ADJUSTMENT SCHEDULE 6 HOURS AFTER STARTING INFUSION aPTT Between 60 - 79 seconds: Bolus 2,000 units aPTT Less than 60 seconds: Bolus 4,000 units Increase infusion and recheck aPTT in 6 hours. , Routine 1718 (Given - Provider: sEha Chen RN) 1811 ([facility] Hold - Provider: Admin Adt - Reason: Transfer to a Procedural area)1940 ([facility] Unhold - Provider: Admin Adt) heparin (porcine) injection (CANCELED) ONCE PRN, Starting on Thu11/24/16 at 1733, Until Thu11/24/16 at 1941, Cath (Intra-Procedure), Routine 1732 (Given - Provider: Naye Tena RN)1751 (Given - Provider: Naye Tena RN) lidocaine (XYLOCAINE) 10 mg/mL (1 %) injection 3 mg 3 mg (0.3 mL), Subcutaneous, ONCE PRN, 1 dose, Starting on Thu11/21/16 at 2010, Until Thu11/25/16 at 1305, for discomfort with PIV insertion, Routine 1811 ([facility] Hold - Provider: Admin Adt - Reason: Transfer to a Procedural area)1940 ([facility] Unhold - Provider: Admin Adt) midazolam (PF) (VERSED) 1 mg/mL multi-dose injection (CANCELED) ONCE PRN, Starting on 11/24/16 at 1727, Until Thu11/24/16 at 1935, Cath (Intra-Procedure), Routine 172 (Given - Provider: Wyatt Becker) nitroGLYcerin (NITROSTAT) SL tablet 0.4 mg 0.4 mg, Sublingual, EVERY 5 MIN PRN, Starting on 11/22/16 at 0013, Until Tu11/25/16 at 1305, Chest pain, May repeat every 5 minutes for a total of three doses. Notify provider if chest pain not relieved with nitroglycerin. Do not administer nitroglycerin if the patinet has received or taken phosphodiesterase (PDE-5) inhibitors such as sildenafil, tadalafil or vardenafil within the last 24 to 72 hours., Routine 1811 ([facility] Hold - Provider: Admin Adt - Reason: Transfer to a Procedural area)1940 ([facility] Unhold - Provider: Admin Adt) nitroGLYcerin 100 mcg/mL intracoronary dilution (CANCELED) ONCE PRN, Starting on Thu11/24/16 at 1743, Until Thu11/24/16 at 1941, Cath (Intra-Procedure), Routine 174 (Given - Provider: Anton Horvath MD)1757 (Given - Provider: Anton Horvath MD) oxyCODONE (ROXICODONE) immediate release tablet 10 mg 10 mg, Oral, 4 TIMES DAILY PRN, Starting on 11/22/16 at 0013, Until Thu11/25/16 at 1305, back pain, Routine 1617 (Given - Provider: Esha Chen RN) 1811 ([facility] Hold - Provider: Admin Adt - Reason: Transfer to a Procedural area)1940 ([facility] Unhold - Provider: Admin Adt) sodium chloride 0.9 % flush 5-20 mL 5-20 mL, Intravenous, EVERY 1 MIN PRN, Starting on 11/22/16 at 0013, Until Tu11/25/16 at 1305, flush, Flush pertains to all indwelling lines. Flush per protocol found in the job aid using the link provided on this medication record., Routine 1811 ([facility] Hold - Provider: Admin Adt - Reason: Transfer to a Procedural area)1940 ([facility] Unhold - Provider: Admin Adt) sodium chloride 0.9 % flush 5-20 mL 5-20 mL, Intravenous, EVERY 1 MIN PRN, Starting on Thu11/21/16 at 2010, Until Thu11/25/16 at 1305, flush, Flush pertains to all indwelling lines. Flush per protocol found in the job aid using the link provided on this medication record., Routine 1811 ([facility] Hold - Provider: Admin Adt - Reason: Transfer to a Procedural area)1940 ([facility] Unhold - Provider: Admin Adt) sodium [...] Routine documented in this encounter Care Teams Enterprise Systems Manager Relationship Specialty Start Date End Date Coni Lim MD [address] [place] [address] PCP - General 07/16/10 documented as of this encounter
--- OUTSIDE RECORDS SUMMARY | 2024-08-05 17:21 | XMS_ITS | Encounter Summary ---
Author Organization [facility] Address [facility] [place] [address] Care Team Providers Care Log Tumbler Name Role Phone Coni Lim MD Primary Care Provider [phone] Encounter Details Date Type Department Care Team (Late st Contact Info) Description 11/26/2016 Telephone Cardiology at [address] [phone] Roque Paulson MD [facility] [place] [address] Social History Tobacco Use Types Packs/Day Years [...] PM Referring Provider: Dr. Kimball Patient Location: [facility] per OSH: 51 y/o old with [...] on filedocumented in this encounter Care Teams Log Tumbler Relationship Specialty Start Date End Date Coni Lim MD [address] [place] [address] PCP - General 07/16/10 documented as of this encounter
--- OUTSIDE RECORDS SUMMARY | 2024-08-05 17:21 | XMS_ITS | Encounter Summary ---
Author Organization [facility] [place] [address] Care Team Providers Care Transportation Driver Name Role Phone Coni Lim MD Primary Care Provider [phone] Encounter Details Date Type Department Care Team (Late st Contact Info) Description 08/07/2017 Notes Only Cardiology at [address] [phone] Marianne Barker Social History Tobacco Use Types [...] on filedocumented in this encounter Care Teams Transportation Driver Relationship Specialty Start Date End Date Coni Lim MD [address] [place] [address] PCP - General 07/16/10 documented as of this encounter
--- OUTSIDE RECORDS SUMMARY | 2024-08-05 17:21 | XMS_ITS | Encounter Summary ---
Author Organization [facility] Address [facility] [place] [address] Care Team Providers Care Saw Handle Assembler Name Role Phone Coni Lim MD Primary Care Provider [phone] Reason for Visit * Reason Comments Chest Pain * Auth/Cert Specialty Diagnoses / Procedures Referred By Contac t Referred To Contact Diagnoses Unstable angina chest pain Referral ID Status Reason Start Date Expiration Date Visits Re quested Visits Authorized [id number] 1 1 Encounter Details Date Type Department Care Team (Late st Contact Info) Description 09/13/2017 9:25 AM EST - 09/13/2017 11:05 AM [place] [id number] Agusto Ball II, MD [facility] [place] [address] CARDIAC CATHETERIZATION Social History Tobacco Use Types [...] Romeo Coe Patient Age: 52 y.o. Language: Turkish Race: White Ethnicity: Not nor Admit date: [...] please contact your inpatient physician through the [facility] Weekend Caregiver . Issues afterhours and on weekends will be handled by the sawmill production worker on-call. Discharge Diagnoses (Hospital Problems) and Secondary [...] restenosis addressed with LAD stent angioplasty at [facility] in January 2014 (ABSORB Stent) 75% RCA [...] patient to come to the hospital today. Crematory Attendant is Dr. Vyas. ?? Currently, he watches [...] lightheadedness/presyncopal symptoms. He will follow-up with his lead pourer, Dr. Vyas, approximately 1 week as an [...] PF, Split 07/30/2013 ??? Influenza Vaccine (Novel) [id number], Injectable 05/24/2009 ??? Influenza Vaccine w/Preservative, Split [...] Discharge References/Attachments PCI (PERCUTANEOUS CORONARY INTERVENTION): POST-OP (UGANDAN) documented in this encounter Discharge Instructions * [...] PCP PO QIANA Gerardo / ANTHONY CORDERO [address] 09/22/2017, 10:30 AM Florian Ling MD, Crematory Attendant [place], [place] Your Inpatient Doctor(s) at [facility]: Christos Buchanan MD Daniel Storms, MD Sean Li, MD Jeffrey R Wunderlich, MD Your Primary Care Provider: Coni Lim MD [address] / [place] [address] For questions regarding this document or issues relating to this hospitalization on the Medical Service, please contact your inpatient physician through the [facility] Weekend Caregiver . Issues afterhours and on weekends will be handled by the Hospitalist staff on-call. * Attachments The following attachments cannot be sent through Care Everywhere. * PCI (PERCUTANEOUS CORONARY INTERVENTION): POST-OP (UGANDAN) documented in this encounter Medications at Time [...] Pierson MD, PGY-1 Cardiology Service Pager # [phone] * Aida Dietrich MSW - 09/13/2017 2:23 [...] copy of notice made and given to patient/resources representative. Original notice to be scanned into [...] 09/12/2017 5:31 PM EST Patient arrived to [facility] via stretcher from ED s/p chest [...] Buchanan MD PCP: Coni Lim MD PCP#: [phone] CC: Chest Pain Patient Active Problem List [...] restenosis addressed with LAD stent angioplasty at [facility] in January 2014 (ABSORB Stent) 75% RCA [...] patient to come to the hospital today. Crematory Attendant is Dr. Vyas. Currently, he watches his [...] of Onset ??? Myocardial Infarction Father 46 [place], CABG ??? Diabetes Mother ??? Hypertension Mother [...] son (age 18 months), daughter 11 in [place], [place]. Takes care of his mother who has dementia and he takes her to dialysis. is disabled. Has grown daughter who is 29 years old. 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 Physical Exam: Vitals: Most Recent Vitals: 09/12/17 [...] restenosis addressed with LAD stent angioplasty at [facility] in January 2014 (ABSORB Stent) 75% RCA [...] two days ago. Patient has contacted his lead pourer who advised to presentto the ED. He [...] reviewed the EKG: Sinus Rhythm, rate 82 UT, QRS and QTc within normal limits No [...] Emergency Medicine *This note was dictated with LE TOTE software. Molly Mayer MD Resident 09/12/17 1713 [...] Within the Past 30 Days: None at [facility], nor at outside hospitals, per pt's report. 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 I've been disabled for five years due to Fibromyalgia and Arthritis. Home Environment: Lives with his , Dasia in [place], [place]. Social & Family Supports/Community Resources: , Friends, neighbors Dasia Coe (Spouse) [address] [facility] [phone] (H) [phone] (M) Behavioral Health History: Per pt report, has Anxiety and Depression, (on Cymbalta and Wellbutrin). Substance Use/Abuse: Current every day smoker; 1-5 cigarettes a day. EtOH: None. Illicit Drug Use: Marijuana every day, medical use. Other Pertinent/Service Specific Information: None Health/Prescription Coverage: Primary Insurance: MEDICARE PART A & B Secondary Insurance: MEDICAID [place] Prescription Coverage: Yes, has Silver Script. Preferred Pharmacy: [facility] - [facility], [place] - [address] ? [address] [facility] [place] [address] ? Not a 24 hour pharmacy; exact hours not known Other: None Primary Care Provider: Coni Lim MD [phone] Patient/Caregiver Goals of Treatment: To return home and to his normal activities. Potential Needs for Transition of Care: Rehab/SNF: Pt has never been a pt in a rehab setting. Home Health: [facility] in the past (after right [...] transition of care planning. TIMBO Barrett Pager: [phone] * Plan of Care - Keisha Mae [...] tele. Cont to monitor. 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 INDIVIDUALIZED FALL PREVENTION INTERVENTIONS: Patient-specific [...] 1 month of chest pressure, told by lead pourer that if he decided to be seen [...] METABOLIC PANEL Routine 09/14/2017 3:40 AM EST FAIRING MAN SCAN 09/14/2017 12:00 AM EST POCT GLUCOSE Routine 09/13/2017 7:50 PM EST POCT GLUCOSE Routine 09/13/2017 4:58 PM EST ECHO LMTD W/O CONTRAST W LMTD SPEC DOPP COLOR DOPP Routine 09/13/2017 2:44 PM EST Coronary artery disease, angina presence unspecified, unspecified vessel or lesion type, unspecified whether [place] or transplanted heart POCT GLUCOSE Routine 09/13/2017 11:32 AM EST CARDIAC CATHETERIZATION Routine 09/13/19 18 11:09 AM EST EKG 12-LEAD STAT 09/13/2017 7:49 AM EST Coronary artery disease, angina presence unspecified, unspecified vessel or lesion type, unspecified whether [place] or transplanted heart POCT GLUCOSE Routine 09/13/2017 [...] Routine 09/13/2017 6:32 AM EST CARDIAC ENZYMES ([facility]) STAT 09/13/2017 12:13 AM EST APTT STAT 09/13/2017 12:13 AM EST CARDIAC CATH SCAN 09/13/2017 12: 00 AM EST POCT GLUCOSE Routine 09/12/2017 9:14 PM EST CARDIAC ENZYMES ([facility]) STAT 09/12/2017 6:53 PM EST XR CHEST [...] * POCT Glucose (09/14/2017 7:32 AM EST) [facility] Glucose, POC 158 65 - 199 mg/dL [facility] Comment: Supplemental ranges: <140 mg/dL before meals <180 mg/dL all other times of the day Blood specimen (specimen) 09/14/2017 7:32 AM EST 09/14/2017 7:32 AM EST Christos Buchanan MD POINT OF CARE TEST O RDERABLES [facility] [place] [address] * Differential, Automated (09/14/2017 3:40 AM EST) [facility] Neutrophil % 51.2 % [facility] Neutrophil Absolute 4.61 1.70 - 6.10 x10(3)/mcL [facility] Lymph % 34.3 % [facility] Lymphocytes Abs 3.1 0.9 - 3.2 x10(3)/[facility] Monocyte % 8.6 % [facility] Monocyte Abs 0.8 0.3 - 0.9 x10(3)/[facility] Eos % 4.6 % [facility] Eosinophils Abs 0.4 0.0 - 0.4 x10(3)/[facility] Basophil % 0.9 % [facility] Baso Absolute 0.1 0.0 - 0.1 x10(3)/[facility] Immature Gran % 0.40 % [facility] Comment: Immature granulocytes(IG's)percentage and absolute count will include metamyelocytes, myelocytes, and promyelocytes. Blood smears from CBCs yielding IG's will be scanned manually for concordance. If this scan disagrees with the automated IG or if promyelocytes are noted, a manual differential will be performed. Immature Gran Absolute 0.04 0.00 - 0.04 x10(3)/[facility] Blood specimen (specimen) 09/14/2017 3:40 AM EST 09/14/2017 4:08 AM EST Narrative Resulting Agency Comment Spec In Lab Christos Buchanan MD HEMATOLOGY ORDERABLE S [facility] [place] [address] * Hemogram (09/14/2017 3:40 AM EST) White Blood Cell 9.0 4.0 - 9.5 x10(3)/[facility] Red Blood Cell 5.28 4.58 - 5.54 x10(6)/[facility] Hemoglobin 15.0 13.7 - 16.5 gm/dL [facility] Hematocrit 45.8 40.5 - 48.5 % [facility] Mean Cell Volume 86.7 82.9 - 93.1 fL [facility] Mean Cell Hemoglobin 28.4 27.5 - 32.1 pg [facility] Mean Cell Hemoglobin Concentration 32.8 32.0 - 35.7 gm/dL [facility] Platelet 188 145 - 357 x10(3)/[facility] RDW Standard Deviation 43.6 36.0 - 45.0 fL [facility] RDW coefficient of variation 13.7 11.4 - 13.8 % [facility] Mean Platelet Volume 10.4 7.6 - 12.9 fL [facility] NRBC% auto 0.0 % [facility] NRBC Absolute 0.000 0.000 - 0.000 x10(3)/[facility] Blood specimen (specimen) 09/14/2017 3:40 AM EST 09/14/2017 4:08 AM EST Narrative Resulting Agency Comment Spec In Lab Christos Buchanan MD HEMATOLOGY ORDERABLE S Performing Organization Address [facility] Co de Phone Number [facility] [place] [address] * Prothrombin Time (09/14/2017 3:40 AM EST) Prothrombin Time 13.3 11.8 - 14.0 sec [facility] International Normalization Ratio 1.0 0.9 - 1.1 [facility] Comment: An INR <2.0 indicates [...] Lab Christos Buchanan MD HEMATOLOGY ORDERABLE S [facility] [place] [address] * Magnesium (09/14/2017 3:40 AM EST) Magnesium 0.83 0.69 - 1.07 mmol/L [facility] Blood specimen (specimen) 09/14/2017 3:40 AM EST 09/14/2017 4:08 AM EST Narrative Resulting Agency Comment Spec In Lab Christos Buchanan MD CHEMISTRY ORDERABLES [facility] [place] [address] * Basic Metabolic Panel (non-fasting) (09/14/2017 3:40 AM EST) Glucose 108 65 - 199 mg/dL [facility] Comment:Diabetes: >=200 mg/d L plus symptoms Blood Urea Nitrogen 11 10 - 20 mg/dL [facility] Creatinine 1.05 0.80 - 1.50 mg/dL [facility] Sodium 143 135 - 145 mmol/L [facility] Potassium 4.0 3.5 - 5.0 mmol/L [facility] Comment: Please note: ??Patients with WBC >100,000 may have falsely elevated Potassium levels. ??For accurate Potassium quantification in these patients send serum separator tube (gold top) for subsequent determinations. ??Contact the Clinical Chemistry Laboratory if there are any questions. Chloride 106 98 - 107 mmol/L [facility] Carbon Dioxide 22 22 - 31 mmol/L [facility] Anion Gap 15 5 - 15 mmol/L [facility] Calcium 9.2 8.5 - 10.5 mg/dL [facility] Est Glomerular Filtration Rate >60 >=60 [facility] Comment: The reported eGFR should be multiplied by 1.2 for patients. The MDRD is not an appropriate measure of renal function for patients with body mass extremes or in patients with acute kidney failure. http://[employer]/DHnkdep http://Lionside.[employer]exio/DHMCnkf Blood specimen (specimen) 09/14/2017 3:40 AM EST 09/14/2017 4:08 AM EST Narrative Resulting Agency Comment Spec In Lab Christos Buchanan MD CHEMISTRY ORDERABLES Performing Organization Address [facility] Co de Phone Number [facility] [place] [address] * SCAN DOC: FAIRING MAN (09/14/2017 12:00 AM EST) Anatomical Region Laterality Modality Other Narrative 09/14/2017 12:00 AM EST Ordered by an unspecified provider. Scanning Provider MEDIA MGR SCAN EXT O RDR/RSLT * POCT Glucose (09/13/2017 7:50 PM EST) Glucose, POC 113 65 - 199 mg/dL [facility] Comment: Supplemental ranges: <140 mg/dL before meals <180 mg/dL all other times of the day Blood specimen (specimen) 09/13/2017 7:50 PM EST 09/13/2017 7:50 PM EST Christos Buchanan MD POINT OF CARE TEST O RDERABLES Performing Organization Address [facility] de Phone Number [facility] [place] [address] * POCT Glucose (09/13/2017 4:58 PM EST) Glucose, POC 138 65 - 199 mg/dL [facility] Comment: Supplemental ranges: <140 mg/dL before meals <180 mg/dL all other times of the day Blood specimen (specimen) 09/13/2017 4:58 PM EST 09/13/2017 4:58 PM EST Christos Buchanan MD POINT OF CARE TEST O RDERABLES Performing Organization Address [facility] Co de Phone Number [facility] [place] [address] * ECHO LMTD W/O CONTRAST W LMTD SPEC DOPP COLOR DOPP (09/13/2017 2:44 PM EST) EF 65 HEART[employer] SYSTEM Anatomical Region Laterality Modality Other 09/13/2017 Narrative 09/13/2017 3:16 PM EST Procedure: ?Transthoracic Echocardiogram Patient: ?LAQUITA Pop ? (Age): 1965(52y) Med Rec#: ? [id number] ?Sex: ?M ? Site Loc: ? [facility] ?Ht / Wt: ??180.3(cm)/101.6 Pt. Loc: ?Adult Floor ? BSA: ?2.21 Study Date: ?? 09/13/2017 ?Pt. Type: Outpatient Tape: ? Referring: Christos Buchanan ([id number]) Reading: Christos Buchanan ([id number]) Offset Printing Pressmen: Meaghan Kim Diagnosis: *ICD-10-PCS Atherosclerotic heart disease of [place] coronary artery without angina pectoris (I25.10) BP: [...] E-wave Vmax ?0.6 ?m/sec ? MV deceleration gaex770.5 ?msec ? MV A-wave Vmax ?0.5 ?m/sec [...] ? Mid-Inferior ?Normal ? Mid-Inferoseptal ?Normal ? [place]-Septal ? Normal ? [place]-Anterior ? Normal ? [place]-Lateral ?Normal ? [place]-Inferior ? Normal ? [place]-Tip ?Normal ? This report has been electronically signed by: Christos Buchanan M.D. ? 09/13/2017 15:16:25 Images reviewed and interpretation verified [facility] Cardiac Ultrasound Laboratory Procedure Note Christos Buchanan MD - 09/13/2017 Procedure: Transthoracic Echocardiogram Patient: LAQUITA Pop DOB(Age): 1965(52y) Med Rec#: [id number] Sex: M Site Loc: [facility] Ht / Wt: 180.3(cm)/101.6 Pt. Loc: Adult Floor BSA: 2.21 Study Date: 09/13/2017 Pt. Type: Outpatient Tape: Referring: Christos Buchanan ([id number]) Reading: Christos Buchanan ([id number]) Offset Printing Pressmen: Meaghan Kim Diagnosis: *ICD-10-PCS Atherosclerotic heart disease of [place] coronary artery without angina pectoris (I25.10) BP: [...] MV E-wave Vmax 0.6 m/sec MV deceleration wjct552.5 msec MV A-wave Vmax 0.5 m/sec MV [...] Normal Mid-Posterolateral Normal Mid-Inferior Normal Mid-Inferoseptal Normal [place]-Septal Normal [place]-Anterior Normal [place]-Lateral Normal [place]-Inferior Normal [place]-Tip Normal This report has been electronically signed by: Christos Buchanan M.D. 09/13/2017 15:16:25 Images reviewed and interpretation verified [facility] Cardiac Ultrasound Laboratory Christos Buchanan MD ECHO ORDERABLES * POCT Glucose (09/13/2017 11:32 AM EST) Glucose, POC 104 65 - 199 mg/dL [facility] Comment: Supplemental ranges: <140 mg/dL before meals <180 mg/dL all other times of the day Blood specimen (specimen) 09/13/2017 11:32 AM EST 09/13/2017 11:32 AM EST Christos Buchanan MD POINT OF CARE TEST O RDERABLES Performing Organization Address City/State/[facility] Co de Phone Number [facility] [place] [address] * CARDIAC CATHETERIZATION (09/13/2017 11:09 AM EST) Anatomical Region Laterality Modality Other Narrative 09/13/2017 11:33 AM EST ?[facility] ? Cardiac Catheterization/Intervention Report ? Patient Name: Romeo Coe. ? Procedure Date: 09/13/2017 ? A #: [id number] ? Primary Physician: Quinn, Agusto W ? Case #: [id number] ? File Name: [id number] ? Catheterization Order Number: [id number] ? [facility] ? Final Report [place], [place] ? Patient Name: ? Romeo A. Coe ? ID#: ?[id number] ? : ?1965 ? Procedure Date: ? [...] presented with: unstable angina (w/i 60 days). [place] ?Cardiovascular Society angina class was IV. This [...] Note Agusto Ball II, MD - 09/14/2017 [facility] Cardiac Catheterization/Intervention Report Patient Name: Romeo CoeNatalie Procedure Date: 09/13/2017 A #: [id number] Primary Physician: Agusto Ball Case #: [id number] File Name: [id number] Catheterization Order Number: [id number] [facility] FinalReport [place], [place] Patient Name: Romeo Coe ID#:[id number] :1965 Procedure Date: September 13, 2017 Case [...] presented with: unstable angina (w/i 60 days). [place] Cardiovascular Society angina class was IV. This [...] 12 Lead (09/13/2017 7:49 AM EST) Pathologist [facility] Ventricular rate 72 BPM MUSE SYSTEM Atrial Rate 72 BPM MUSE SYSTEM P-R Interval 138 ms MUSE SYSTEM QRS Duration 86 ms MUSE SYSTEM Q-T Interval 380 ms MUSE SYSTEM QTC Calculated (Bezet) 416 ms MUSE SYSTEM Calculated P Edna 5 degrees MUSE SYSTEM Calculated R Edna 23 degrees MUSE SYSTEM Calculated T Edna 28 degrees MUSE SYSTEM INTERPRETATION Normal sinus rhythm Normal ECG When compared with ECG of 12-SEP-2017 12:19, No significant change was found Confirmed by MD Segundo, Panda Leyva ([id number]) on 09/14/2017 9:09:15 AM MUSE SYSTEM 09/13/2017 7:49 AM EST 09/14/2017 9:09 AM EST Christos Buchanan MD ECG ORDERABLES MUSE SYSTEM * POCT Glucose (09/13/2017 7:24 AM EST) Pathologist [facility] Glucose, POC 152 65 - 199 mg/dL [facility] Comment: Supplemental ranges: <140 mg/dL before meals <180 mg/dL all other times of the day Blood specimen (specimen) 09/13/2017 7:24 AM EST 09/13/2017 7:24 AM EST Christos Buchanan MD POINT OF CARE TEST O RDERABLES [facility] [place] [address] * (ABNORMAL) BMP w/fasting Glucose (09/13/2017 6:32 AM EST) Glucose Fasting 157(H) 65 - 99 mg/dL [facility] Comment: ?Fasting* Glucose Interpretive Criteria [...] of Diabetes Mellitus, Position Statement from the [place] [employer]. ??Diabetes Care, Volume 33, Supplement 1, Aug 2009 Blood Urea Nitrogen 11 10 - 20 mg/dL [facility] Creatinine 0.99 0.80 - 1.50 mg/dL [facility] Sodium 142 135 - 145 mmol/L [facility] Potassium 3.7 3.5 - 5.0 mmol/L [facility] Comment: Please note: ??Patients with WBC >100,000 may have falsely elevated Potassium levels. ??For accurate Potassium quantification in these patients send serum separator tube (gold top) for subsequent determinations. ??Contact the Clinical Chemistry Laboratory if there are any questions. Chloride 106 98 - 107 mmol/L [facility] Carbon Dioxide 21(L) 22 - 31 mmol/L [facility] Anion Gap 15 5 - 15 mmol/L [facility] Calcium 9.4 8.5 - 10.5 mg/dL [facility] Est Glomerular Filtration Rate >60 >=60 [facility] Comment: The reported eGFR should be multiplied by 1.2 for patients. The MDRD is not an appropriate measure of renal function for patients with body mass extremes or in patients with acute kidney failure. http://Lionside.[employer]exio/DHnkdep http://[employer]/[facility] Blood specimen (specimen) 09/13/2017 6:32 AM EST 09/13/2017 6:41 AM EST Narrative Resulting Agency Comment Spec In Lab Christos Buchanan MD CHEMISTRY ORDERABLES Performing Organization Address [facility] Phone Number [facility] [place] [address] * (ABNORMAL) APTT (09/13/2017 6:32 AM EST) Partial Thromboplastin Time 113(H) 25 - 35 sec [facility] Comment: The recommended therapeutic range for full dose, unfractionated heparin at [facility] is 80 ? 114 seconds. The use of the anti-Xa (heparin) level rather than the PTT is recommended for monitoring anticoagulation intensity in critically ill patients receiving unfractionated heparin by continuous IV infusion. Blood specimen (specimen) 09/13/2017 6:32 AM EST 09/13/2017 6:41 AM EST Narrative Resulting Agency Comment Spec In Lab Christos Buchanan MD HEMATOLOGY ORDERABLE S Performing Organization Address [facility] Co de Phone Number [facility] [place] [address] * Differential, Automated (09/13/2017 6:32 AM EST) Neutrophil % 64.9 % [facility] Neutrophil Absolute 5.94 1.70 - 6.10 x10(3)/mcL [facility] Lymph % 24.7 % [facility] Lymphocytes Abs 2.3 0.9 - 3.2 x10(3)/[facility] Monocyte % 5.3 % [facility] Monocyte Abs 0.5 0.3 - 0.9 x10(3)/[facility] Eos % 4.0 % [facility] Eosinophils Abs 0.4 0.0 - 0.4 x10(3)/[facility] Basophil % 0.7 % [facility] Baso Absolute 0.1 0.0 - 0.1 x10(3)/[facility] Immature Gran % 0.40 % [facility] Comment: Immature granulocytes(IG's)percentage and absolute count will include metamyelocytes, myelocytes, and promyelocytes. Blood smears from CBCs yielding IG's will be scanned manually for concordance. If this scan disagrees with the automated IG or if promyelocytes are noted, a manual differential will be performed. Immature Gran Absolute 0.04 0.00 - 0.04 x10(3)/[facility] Blood specimen (specimen) 09/13/2017 6:32 AM EST 09/13/2017 6:41 AM EST Narrative Resulting Agency Comment Spec In Lab Christos Buchanan MD HEMATOLOGY ORDERABLE S [facility] [place] [address] * Hemogram (09/13/2017 6:32 AM EST) White Blood Cell 9.2 4.0 - 9.5 x10(3)/[facility] Red Blood Cell 5.29 4.58 - 5.54 x10(6)/[facility] Hemoglobin 15.4 13.7 - 16.5 gm/dL [facility] Hematocrit 44.9 40.5 - 48.5 % [facility] Mean Cell Volume 84.9 82.9 - 93.1 fL [facility] Mean Cell Hemoglobin 29.1 27.5 - 32.1 pg [facility] Mean Cell Hemoglobin Concentration 34.3 32.0 - 35.7 gm/dL [facility] Platelet 186 145 - 357 x10(3)/[facility] RDW Standard Deviation 42.9 36.0 - 45.0 fL [facility] RDW coefficient of variation 13.8 11.4 - 13.8 % [facility] Mean Platelet Volume 10.3 7.6 - 12.9 fL [facility] NRBC% auto 0.0 % [facility] NRBC Absolute 0.000 0.000 - 0.000 x10(3)/[facility] Blood specimen (specimen) 09/13/2017 6:32 AM EST 09/13/2017 6:41 AM EST Narrative Resulting Agency Comment Spec In Lab Christos Buchanan MD HEMATOLOGY ORDERABLE S Performing Organization Address [facility] Co de Phone Number [facility] [place] [address] * Blood culture (09/13/2017 6:32 AM EST) Blood Culture No growth at 5 days. [facility] Blood specimen (specimen) 09/13/2017 6:32 AM EST 09/13/2017 7:17 AM EST Comment:L FOREARM Narrative Resulting Agency Comment Spec In Lab Christos Buchanan MD MICROBIOLOGY - BLOOD ORDERABLES Performing Organization Address [facility] Co de Phone Number [facility] [place] [address] * Prothrombin Time (09/13/2017 6:32 AM EST) Prothrombin Time 13.8 11.8 - 14.0 sec [facility] International Normalization Ratio 1.1 0.9 - 1.1 [facility] Comment: An INR <2.0 indicates [...] MD HEMATOLOGY ORDERABLE S Performing Organization Address City/[facility]/ZIP Co de Phone Number [facility] [place] [address] * Magnesium (09/13/2017 6:32 AM EST) Magnesium 0.84 0.69 - 1.07 mmol/L [facility] Blood specimen (specimen) 09/13/2017 6:32 AM EST 09/13/2017 6:41 AM EST Narrative Resulting Agency Comment Spec In Lab Christos Buchanan MD CHEMISTRY ORDERABLES Performing Organization Address [facility] Co de Phone Number [facility] [place] [address] * Triglyceride (09/13/2017 6:32 AM EST) Triglyceride 153 <=199 mg/dL [facility] Blood specimen (specimen) 09/13/2017 6:32 AM EST 09/13/2017 6:41 AM EST Narrative Resulting Agency Comment Spec In Lab Christos Buchanan MD CHEMISTRY ORDERABLES Performing Organization Address [facility] Co de Phone Number [facility] [place] [address] * HDL/Cholesterol Profile (09/13/2017 6:32 AM EST) Cholesterol, Total 162 <=239 mg/dL [facility] HDL Cholesterol 44 >=40 mg/dL [facility] Cholesterol/HDL Ratio 3.7 ratio [facility] Chol/HDL Interpretation See Note [facility] Comment: Lipid management should be guided by a patient? s ASCVD risk, goals and preferences. ACC/AHA Guidelines recommend high intensity statin if clinical ASCVD or LDL greater than or equal to 190 mg/dL. http://Lionside.com/WRH-YSM-Jjkdidsvb Measure LDL if Total Cholesterol minus HDL Cholesterol is greater than 220 mg/dL. Adults aged 40-75 with LDL 70-189 mg/dL should have their 10 year ASCVD risk estimated with the ACC/AHA ASCVD risk body shop estimator http://tools.acc.org/NUEKE-Acmu-Drgoxekdl/ Statin should be discussed if risk greater [...] Buchanan MD CHEMISTRY ORDERABLES Performing Organization Address [facility] Co de Phone Number [facility] [place] [address] * LDL Cholesterol, Direct (09/13/2017 6:32 AM EST) LDL Cholesterol, Direct 102 <=190 mg/dL [facility] Blood specimen (specimen) 09/13/2017 6:32 AM EST 09/13/2017 6:41 AM EST Narrative Resulting Agency Comment Spec In Lab Christos Buchanan MD CHEMISTRY ORDERABLES Performing Organization Address [facility] Co de Phone Number [facility] [place] [address] * (ABNORMAL) Hemoglobin A1c (09/13/2017 6:32 AM EST) Hemoglobin A1c 6.4(H) 4.3 - 5.6 % [facility] Comment: Reference Range: 4.3 - [...] 1, S67-74 Estimated Average Glucose 137 mg/dL [facility] Comment: eAG equivalents for HbA1c [...] into estimated average glucose values. ??Diabetes Care 2008:31(8):2229-2726. Blood specimen (specimen) 09/13/2017 6:32 AM EST 09/13/2017 6:41 AM EST Narrative Resulting Agency Comment Spec In Lab Christos Buchanan MD CHEMISTRY ORDERABLES [facility] [place] [address] * pro-Brain Natriuretic Peptide (09/13/2017 6:32 AM EST) NT-proBNP 15 <=125 pg/mL [facility] Blood specimen (specimen) 09/13/2017 6:32 AM EST 09/13/2017 6:41 AM EST Narrative Resulting Agency Comment Spec In Lab Christos Buchanan MD CHEMISTRY ORDERABLES Performing Organization Address [facility] de Phone Number [facility] [place] [address] * (ABNORMAL) APTT (09/13/2017 12:13 AM EST) Pathologist [facility] Partial Thromboplastin Time 50(H) 25 - 35 sec [facility] Comment: The recommended therapeutic range for full dose, unfractionated heparin at [facility] is 80 ? 114 seconds. The use of the anti-Xa (heparin) level rather than the PTT is recommended for monitoring anticoagulation intensity in critically ill patients receiving unfractionated heparin by continuous IV infusion. Blood specimen (specimen) 09/13/2017 12:13 AM EST 09/13/2017 12:42 AM EST Narrative Resulting Agency Comment Spec In Lab Christos Buchanan MD HEMATOLOGY ORDERABLE S Performing Organization Address [facility] de Phone Number [facility] [place] [address] * Cardiac Enzymes (LEB/CGP) (09/13/2017 12:13 AM EST) Troponin-T <0.01 0.00 - 0.00 ng/mL [facility] Comment: The 99th percentile for Troponin T is less than 0.01 ng/mL, any detectable cTnT concentration using this assay should be considered elevated. According to the third universal definition of myocardial infarction the following criteria with a clinical presentation consistent with acute myocardial ischemia meets the diagnosis for a myocardial infarction ([place]). Detection of a rise and/or fall of cTnT, with at least one value greater than the 99th percentile (> or = 0.01) and with at least one of the following ?? Symptoms of ischemia ?? New or presumed new significant LE-jianfyw-L wave (ST-T) changes or new left bundle [...] additional sample may be indicated. Reference: Third [place] Definition of Myocardial Infarction. Journal of the [place] [employer] 2012;60:1581-98 Creatine Kinase 55 0 - 200 unit/L [facility] Blood specimen (specimen) 09/13/2017 12:13 AM EST 09/13/2017 12:42 AM EST Narrative Resulting Agency Comment Spec In Lab Christos Buchanan MD CHEMISTRY ORDERABLES Performing Organization Address [facility] Co de Phone Number [facility] [place] [address] * SCAN DOC: CARDIAC CATH (09/13/2017 12:00 AM EST) Anatomical Region Laterality Modality Cardiac Other Narrative 09/13/2017 12:00 AM EST Ordered by an unspecified provider. Scanning Provider MEDIA MGR SCAN EXT O RDR/RSLT * POCT Glucose (09/12/2017 9:14 PM EST) Glucose, POC 102 65 - 199 mg/dL [facility] Comment: Supplemental ranges: <140 mg/dL before meals <180 mg/dL all other times of the day Blood specimen (specimen) 09/12/2017 9:14 PM EST 09/12/2017 9:14 PM EST Christos Buchanan MD POINT OF CARE TEST O RDERABLES Performing Organization Address [facility] Co de Phone Number [facility] [place] [address] * Cardiac Enzymes (LEB/CGP) (09/12/2017 6:53 PM EST) Troponin-T <0.01 0.00 - 0.00 ng/mL [facility] Comment: The 99th percentile for Troponin T is less than 0.01 ng/mL, any detectable cTnT concentration using this assay should be considered elevated. According to the third universal definition of myocardial infarction the following criteria with a clinical presentation consistent with acute myocardial ischemia meets the diagnosis for a myocardial infarction ([place]). Detection of a rise and/or fall of cTnT, with at least one value greater than the 99th percentile (> or = 0.01) and with at least one of the following ?? Symptoms of ischemia ?? New or presumed new significant TZ-pkyevbd-H wave (ST-T) changes or new left bundle [...] additional sample may be indicated. Reference: Third [place] Definition of Myocardial Infarction. Journal of the [place] College of Cardiology 2012;60:1581-98 Creatine Kinase 57 0 - 200 unit/L [facility] Blood specimen (specimen) 09/12/2017 6:53 PM EST 09/12/2017 7:02 PM EST Narrative Resulting Agency Comment Spec In Lab Christos Buchanan MD CHEMISTRY ORDERABLES Performing Organization Address City/State/[facility] Co de Phone Number [facility] [place] [address] * XR Chest PA & Lateral (Generic) [...] Prothrombin Time 13.7 11.8 - 14.0 sec [facility] International Normalization Ratio 1.1 0.9 - 1.1 [facility] Comment: An INR <2.0 indicates [...] Lab Alejandro Blair MD HEMATOLOGY ORDERAB LES [facility] [place] [address] * APTT (09/12/2017 1:29 PM EST) Partial Thromboplastin Time 28 25 - 35 sec [facility] Comment: The recommended therapeutic range for full dose, unfractionated heparin at [facility] is 80 ? 114 seconds. The use [...] MD HEMATOLOGY ORDERAB LES Performing Organization Address [facility] Co de Phone Number [facility] [place] [address] * pro-Brain Natriuretic Peptide (09/12/2017 1:29 PM EST) NT-proBNP 20 <=125 pg/mL [facility] Blood specimen (specimen) Venous Draw / Unknown 09/12/2017 1:29 PM EST 09/12/2017 1:35 PM EST Narrative Resulting Agency Comment Spec In Lab Alejandro Blair MD CHEMISTRY ORDERABL ES Performing Organization Address [facility] Co de Phone Number [facility] [place] [address] * Gold Tube HOLD (09/12/2017 1:29 PM EST) Gold Hold Sample in lab. [facility] Blood specimen (specimen) Venous Draw / Unknown 09/12/2017 1:29 PM EST 09/12/2017 1:34 PM EST Alejandro Blair MD CHEMISTRY ORDERABL ES Performing Organization Address [facility] Co de Phone Number [facility] [place] [address] * Blue Tube HOLD (09/12/2017 1:29 PM EST) Blue Hold Sample in lab. [facility] Blood specimen (specimen) Venous Draw / Unknown 09/12/2017 1:29 PM EST 09/12/2017 1:34 PM EST Alejandro Blair MD HEMATOLOGY ORDERAB LES Performing Organization Address City/[facility]/ZIP Co de Phone Number [facility] [place] [address] * Differential, Automated (09/12/2017 1:29 PM EST) Neutrophil % 57.0 % [facility] Neutrophil Absolute 5.07 1.70 - 6.10 x10(3)/[facility] LABORAT[facility] Lymph % 29.7 % [facility] Lymphocytes Abs 2.6 0.9 - 3.2 x10(3)/[facility] LABORATORY Monocyte % 7.8 % [facility] Monocyte Abs 0.7 0.3 - 0.9 x10(3)/[facility] LABORATORY Eos % 4.2 % [facility] Eosinophils Abs 0.4 0.0 - 0.4 x10(3)/[facility] LABOR[facility]ORY Basophil % 0.8 % [facility] Baso Absolute 0.1 0.0 - 0.1 x10(3)/[facility] LABORATORY Immature Gran % 0.50 % [facility] Comment: Immature granulocytes(IG's)percentage and absolute count will include metamyelocytes, myelocytes, and promyelocytes. Blood smears from CBCs yielding IG's will be scanned manually for concordance. If this scan disagrees with the automated IG or if promyelocytes are noted, a manual differential will be performed. Immature Gran Absolute 0.04 0.00 - 0.04 x10(3)/[facility]ATORY Blood specimen (specimen) 09/12/2017 1:29 PM EST 09/12/2017 1:34 PM EST Narrative Resulting Agency Comment Spec In Lab Alejandro Blair MD HEMATOLOGY ORDERAB LES [facility] [place] [address] * Hemogram (09/12/2017 1:29 PM EST) [facility] White Blood Cell 8.9 4.0 - 9.5 x10(3)/[facility] LABORATORY Red Blood Cell 5.07 4.58 - 5.54 x10(6)/[facility]ORY Hemoglobin 14.8 13.7 - 16.5 gm/dL [facility] Hematocrit 43.3 40.5 - 48.5 % [facility] Mean Cell Volume 85.4 82.9 - 93.1 fL [facility] Mean Cell Hemoglobin 29.2 27.5 - 32.1 pg [facility] Mean Cell Hemoglobin Concentration 34.2 32.0 - 35.7 gm/dL [facility] Platelet 208 145 - 357 x10(3)/[facility] LABORATORY RDW Standard Deviation 42.5 36.0 - 45.0 [facility] LABORATORY RDW coefficient of variation 13.7 11.4 - 13.8 % [facility] Mean Platelet Volume 10.4 7.6 - 12.9 [facility] LABORATORY NRBC% auto 0.0 % [facility] NRBC Absolute 0.000 0.000 - 0.000 x10(3)/[facility]ATORY Blood specimen (specimen) 09/12/2017 1:29 PM EST 09/12/2017 1:34 PM EST Narrative Resulting Agency Comment Spec In Lab Alejandro Blair MD HEMATOLOGY ORDERAB LES [facility] [place] [address] * (ABNORMAL) Basic Metabolic Panel (non-fasting) (09/12/2017 1:29 PM EST) [facility] Glucose 113 65 - 199 mg/dL [facility] Comment:Diabetes: >=200 mg/d L plus symptoms Blood Urea Nitrogen 10 10 - 20 mg/dL [facility] Creatinine 0.96 0.80 - 1.50 mg/dL [facility] Sodium 143 135 - 145 mmol/L [facility] Potassium 3.9 3.5 - 5.0 mmol/L [facility] Comment: Please note: ??Patients with WBC >100,000 may have falsely elevated Potassium levels. ??For accurate Potassium quantification in these patients send serum separator tube (gold top) for subsequent determinations. ??Contact the Clinical Chemistry Laboratory if there are any questions. Chloride 106 98 - 107 mmol/L [facility] Carbon Dioxide 20(L) 22 - 31 mmol/L [facility] Anion Gap 17(H) 5 - 15 mmol/L [facility] Calcium 9.2 8.5 - 10.5 mg/dL [facility] Est Glomerular Filtration Rate >60 >=60 [facility] Comment: The reported eGFR should be multiplied by 1.2 for patients. The MDRD is not an appropriate measure of renal function for patients with body mass extremes or in patients with acute kidney failure. http://Lionside.Nexio/DHnkdep http://Calnex Solutions/DHMCnkf Blood specimen (specimen) 09/12/2017 1:29 PM EST 09/12/2017 1:34 PM EST Narrative Resulting Agency Comment Spec In Lab Alejandro Blair MD CHEMISTRY ORDERABL ES [facility] [place] [address] * Cardiac Enzymes (LEB/CGP) (09/12/2017 1:29 PM EST) Troponin-T <0.01 0.00 - 0.00 ng/mL [facility] Comment: The 99th percentile for Troponin T is less than 0.01 ng/mL, any detectable cTnT concentration using this assay should be considered elevated. According to the third universal definition of myocardial infarction the following criteria with a clinical presentation consistent with acute myocardial ischemia meets the diagnosis for a myocardial infarction ([place]). Detection of a rise and/or fall of cTnT, with at least one value greater than the 99th percentile (> or = 0.01) and with at least one of the following ?? Symptoms of ischemia ?? New or presumed new significant GY-vqfynjt-P wave (ST-T) changes or new left bundle [...] additional sample may be indicated. Reference: Third [place] Definition of Myocardial Infarction. Journal of the [place] College [employer]iology 2012;60:1581-98 Creatine Kinase 65 0 - 200 unit/L [facility] Blood specimen (specimen) 09/12/2017 1:29 PM EST 09/12/2017 1:34 PM EST Narrative Resulting Agency Comment Spec In Lab Alejandro Blair MD CHEMISTRY ORDERABL ES [facility] [place] [address] * EKG 12 Lead (09/12/2017 12:19 PM EST) Ventricular rate 82 BPM MUSE SYSTEM Atrial Rate 82 BPM MUSE SYSTEM P-R Interval 136 ms MUSE SYSTEM QRS Duration 80 ms MUSE SYSTEM Q-T Interval 358 ms MUSE SYSTEM QTC Calculated (Bezet) 418 ms MUSE SYSTEM Calculated P Edna 13 degrees MUSE SYSTEM Calculated R Edna 33 degrees MUSE SYSTEM Calculated T Edna 34 degrees MUSE SYSTEM INTERPRETATION Normal sinus [...] PRN, Starting on 09/13/17 at 1014, Until [place] 09/13/17 at 1015, Cath (Intra-Procedure), Routine Given 09/13/2017 10:14 AM EST 25 mcg fentaNYL 50 mcg/mL multi-dose injection ONCE PRN, Starting on 09/13/17 at 1028, Until 09/13/17 at 1037, Intra-Operative (Intra-Procedure), Routine Given 09/13/2017 10:28 AM EST 25 mcg fentaNYL 50 mcg/mL multi-dose injection ONCE PRN, Starting on 09/13/17 at 1105, Until [place] 09/13/17 at 1107, Cath (Intra-Procedure), Routine Given 09/13/2017 11:05 AM EST 25 mcg gabapentin (NEURONTIN) capsule 600 mg 600 mg, Oral, 2 TIMES DAILY BEFORE BREAKFAST AND LUNCH, First dose (after last modification) on [place] 09/13/17 at 0730, Until Discontinued, Routine Given [...] - Reason: Transfer to a Procedural area)1134 ([facility] Unhold - Provider: Admin Adt) 0830 (Given - Provider: Rupal Munguia RN) buPROPion (WELLBUTRIN SR or ZYBAN) SR tablet 150 mg 150 mg, Oral, 2 TIMES DAILY, First dose on 09/12/17 at 2100, Until Discontinued, DO NOT CRUSH OR OPEN, Routine 2030 (Given - Provider: Keisha Mae RN) 0850 (Given - Provider: Rupal Munguia RN)1002 ([facility] Hold - Provider: Admin Adt - Reason: Transfer to a Procedural area)1134 ([facility] Unhold - Provider: Admin Adt)2019 (Given - Provider: Keisha Mae RN) 0830 (Given - Provider: Rupal Munguia RN) clopidogrel (PLAVIX) tablet 75 mg 75 mg, Oral, DAILY, First dose on 09/13/17 at 0900, Until Discontinued, Routine 0850 (Given - Provider: Rupal Munguia RN)1002 ([facility] Hold - Provider: Admin Adt - Reason: Transfer to a Procedural area)1134 ([facility] Unhold - Provider: Admin Adt) 0830 (Given - Provider: Rupal Munguia RN) DULoxetine (CYMBALTA) capsule 60 mg 60 mg, Oral, 2 TIMES DAILY, First dose on 09/12/17 at 2100, Until Discontinued, Routine 2030 (Given - Provider: Keisha Mae RN) 0851 (Given - Provider: Rupal Munguia RN)1002 ([facility] Hold - Provider: Admin Adt - Reason: Transfer to a Procedural area)1134 ([facility] Unhold - Provider: Admin Adt)2020 (Given - Provider: Keisha Mae RN) 0830 (Given - Provider: Rupal Munguia RN) gabapentin (NEURONTIN) capsule 600 mg 600 mg, Oral, 2 TIMES DAILY BEFORE BREAKFAST AND LUNCH, First dose (after last modification) on 09/13/17 at 0730, Until Discontinued, Routine 0800 (Given - Provider: Rupal Munguia RN)1002 ([facility] Hold - Provider: Admin Adt - Reason: Transfer to a Procedural area)1130 (Automatically Held - Provider: Admin Adt)1134 ([facility] Unhold - Provider: Admin Adt)1323 (Given - Provider: Rupal Munguia RN - Comment: late lunch) 0800 (Given - Provider: Rupal Munguia RN) gabapentin (NEURONTIN) capsule 900 mg 900 mg, Oral, NIGHTLY, First dose on 09/12/17 at 2100, Until Discontinued, Routine 2030 (Given - Provider: Keisha Mae RN) 1002 ([facility] Hold - Provider: Admin Adt - Reason: Transfer to a Procedural area)1134 ([facility] Unhold - Provider: Admin Adt)2019 (Given [...] - Reason: Transfer to a Procedural area)1134 ([facility] Unhold - Provider: Admin Adt) isosorbide [...] 0853 (Given - Provider: Rupal Munguia, VERO)1002 ([facility] Hold - Provider: Admin Adt - Reason: Transfer to a Procedural area)1134 ([facility] Unhold - Provider: Admin Adt) 0831 (Given - Provider: Rupal Munguia, VERO) meTOPROLOL tartrate (LOPRESSOR) tablet 50 mg 50 mg, Oral, 2 TIMES DAILY, First dose on 09/12/17 at 2100, Until Discontinued, Routine 2030 (Given - Provider: Keisha Mae, VERO) 0852 (Given - Provider: Ruapl Munguia, VERO)1002 ([facility] Hold - Provider: Admin Adt - Reason: Transfer to a Procedural area)1134 ([facility] Unhold - Provider: Admin Adt)2020 (Given [...] Rupal Munguia RN - Reason: Patient/family refused)1002 ([facility] Hold - Provider: Admin Adt - Reason: Transfer to a Procedural area)1134 ([facility] Unhold - Provider: Admin Adt) 0900 (Not Given - Provider: uRpal Munguia RN - Reason: Patient/family refused) nicotine [...] - Reason: Transfer to a Procedural area)1134 ([facility] Unhold - Provider: Admin Adt)2099 (Not [...] 0852 (Given - Provider: Rupal Munguia RN)1002 ([facility] Hold - Provider: Admin Adt - Reason: Transfer to a Procedural area)1134 ([facility] Unhold - Provider: Admin Adt)2020 (Given - Provider: Keisha Mae, VERO) 0830 (Given - Provider: Rupal Munguia, VERO) pramipexole (MIRAPEX) tablet 0.5 mg 0.5 mg, Oral, NIGHTLY, First dose on 09/12/17 at 2100, Until Discontinued, Routine 2030 (Given - Provider: Keisha Mae RN) 1002 ([facility] Hold - Provider: Admin Adt - Reason: Transfer to a Procedural area)1134 ([facility] Unhold - Provider: Admin Adt)2019 (Given - Provider: Keisha Mae RN) rosuvastatin (CRESTOR) tablet 20 mg 20 mg, Oral, EVERY EVENING, First dose on 09/12/17 at 1800, Until Discontinued, Routine 1818 (Given - Provider: Mariela So RN) 1002 (OCT Hold - Provider: Admin Adt - Reason: Transfer to a Procedural area)1134 ([facility] Unhold - Provider: Admin Adt)1639 (Given [...] - Reason: Transfer to a Procedural area)1134 ([facility] Unhold - Provider: Admin Adt)2100 (Not [...] (Given - Provider: Keisha Mae RN) 1002 ([facility] Hold - Provider: Admin Adt - Reason: Transfer to a Procedural area)1134 ([facility] Unhold - Provider: Admin Adt)2019 (Given [...] RN)0809 (Given - Provider: Rupal Munguia RN)1002 ([facility] Hold - Provider: Admin Adt - Reason: Transfer to a Procedural area)1134 ([facility] Unhold - Provider: Admin Adt) oxyCODONE (ROXICODONE) immediate release tablet 10 mg 10 mg, Oral, 4 TIMES DAILY PRN, Starting on 09/12/17 at 1735, Until 09/14/17 at 1312, pain unresponsive to tylenol, Routine 1002 ([facility] Hold - Provider: Admin Adt - Reason: Transfer to a Procedural area)1134 ([facility] Unhold - Provider: Admin Adt)2024 (Given [...] provided on this medication record., Routine 1002 ([facility] Hold - Provider: Admin Adt - Reason: Transfer to a Procedural area)1134 ([facility] Unhold - Provider: Admin Adt) sodium [...] UA) documented in this encounter Care Teams Saw Handle Assembler Relationship Specialty Start Date End Date Coni Lim MD [address] [place] [address] PCP - General 07/16/10 documented as of this encounter
--- OUTSIDE RECORDS SUMMARY | 2024-08-05 17:22 | XMS_ITS | Encounter Summary ---
Author Organization [facility] [place] [address] Care Team Providers Care Environmental Emergencies Assistant Name Role Phone Coni Lim MD Primary Care Provider [phone] Reason for Visit * Reason Onset Date Comments Medication Refill 08/10/2013 Encounter Details Date Type Department Care Team (Late st Contact Info) Description 08/10/2013 Refill Cardiology at [address] [phone] Turner Tan MD [facility] [place] [address] Medication Refill Social History Tobacco Use Types [...] Coronary atherosclerosis of unspecified type of vessel, cher-ae heights or graft documented in this encounter Care Teams Environmental Emergencies Assistant Relationship Specialty Start Date End Date Coni Lim MD [address] [place] [address] PCP - General 07/16/10 documented as of this encounter
--- OUTSIDE RECORDS SUMMARY | 2024-08-05 17:22 | XMS_ITS | Encounter Summary ---
Author Organization Formerly [facility], 1928–1983 Address [facility] [place] [address] Care Team Providers Care Tobacco Prizer Name Role Phone Coni Lim MD Primary Care Provider [phone] Encounter Details Date Type Department Care Team (Latest Contact Info) Description 07/29/2013 11:02 AM EST - 07/29/2013 11:59 PM [facility] Hospital Encounter ZLEB 4A [facility] [place] [address] Edy Trimble MD [facility] [place] [address] Discharge Disposition: Home Social History Tobacco Use [...] (07/29/2013 6:05 PM EST) Pathologist [facility] Creatine Kinase 57 0 - 200 unit/L [facility] [employer] CK-MB 1.4 0.0 - 5.0 mcg/L [facility] [employer] CKMB Index 2.5 0.0 - 5.0 mcg/u CERNER MILLENNIUM Blood specimen (specimen) 07/29/2013 6:05 PM EST 07/29/2013 6:33 PM EST Narrative Resulting Agency Comment Spec In Lab Edy Damon MD CHEMISTRY ORDERABLES Performing Organization Address City/[facility] [address]/[facility] Co de Phone Number CERANNABEL JENSENENNIUM * CK-MB Study (07/29/2013 9:24 AM EST) Creatine Kinase 64 0 - 200 unit/L CERNER MILLENNIUM CK-MB 1.3 0.0 - 5.0 mcg/L CERNER MILLENNIUM CKMB Index 2.0 0.0 - 5.0 mcg/u CERNER MILLENNIUM Blood specimen (specimen) 07/29/2013 9:24 AM EST 07/29/2013 11:10 AM EST Narrative Resulting Agency Comment Spec In Lab Edy Daomn MD CHEMISTRY ORDERABLES Performing Organization Address City/[facility] [address]/[facility] Co de Phone Number CERANNABEL CLEMENSIUM documented in this encounter Visit Diagnoses Not on filedocumented in this encounter Care Teams Tobacco Prizer Relationship Specialty Start Date End Date Coni Lim MD [address] [place] [address] PCP - General 07/16/10 documented as of this encounter
--- OUTSIDE RECORDS SUMMARY | 2024-08-05 17:22 | XMS_ITS | Encounter Summary ---
Author Organization [facility] Address [facility] [place] [address] Care Team Providers Care Carry In Worker Name Role Phone Coni Lim MD Primary Care Provider [phone] Reason for Visit * Auth/Cert Specialty Diagnoses / Procedures Referred By Ruby garvin Referred To Contact Diagnoses Unstable angina [place] Referral ID Status Reason Start Date Expiration Date Visits Re quested Visits Authorized [id number] 1 1 Encounter Details Date Type Department Care Team (Late st Contact Info) Description 11/24/2016 2:40 PM EDT - 11/24/2016 3:40 PM EDT Surgery [place] [address] [facility] [place] [address] CARDIAC CATHETERIZATION Social History Tobacco Use Types [...] Romeo Coelho Patient Age: 51 y.o. Language: Chinese Race: White Ethnicity: Not nor Admit date: 11/21/2016 Discharge date and time: 11/25/2016 Attending Physician: Roque Sanches MD Discharge Physician: Roque Sanches MD Follow-up Recommendations for Providers: 1. Admitted with unstable angina. Drug-eluting stent RCA. 2. Requires dual antiplatelet therapy for 1 year 3. Smoking cessation Inpatient Provider Contact Information: Keisha Rose APRN [facility] Provider # [id number] Discharge Diagnoses (Hospital Problems) and Secondary Diagnoses (Chronic Problems): Active Hospital Problems Diagnosis ??? Unstable angina ??? CAD (coronary artery disease) -Coronary Angio 07/29/2013: 65% (FFR 0.74) mid LAD lesion s/p PCI with 3.5 X 18 mm JACINDA - [facility] 2009 post abnormal nuc stress [...] stent restenosis addressed with LAD stentangioplasty at [facility] in January 2014), DM2, HTN, dyslipidemia, continued tobacco use, and obesity was transferred from [facility] to [facility] for further evaluation of unstable angina. Prior [...] PF, Split 07/30/2013 ??? Influenza Vaccine (Novel) [id number], Injectable 05/24/2009 ??? Influenza Vaccine w/Preservative, Split [...] contact one of the cardiology nurses at [facility] during normal business hours(Thursday through Thursday, 8 AM to 5 PM) at . During nonbusiness hours (evenings, nights, weekends, holidays), you may contact the medical information specialist hospital orderly at . Return to work: -unemployed Driving: -No driving for 48 hours after catheterization. Follow up Appointments: ?? PCP: Coni Lim MD will see you on November 28, 2016 at 2:45 PM at [employer]. You may contact her office at [phone] with any questions or concerns ?? Cardiology: Please see Dr. Ling in [place], [place] on December 16 at 11:00 AM. His office may be contacted at with any questions or concerns. Home oxygen therapy: N/A Arrangements for VNA/home care: none Discharge References/Attachments None Keisha Rose APRN Nurse Practitioner-Department of Cardiology [email or web address] Pager [phone] Phone number: [phone] Fax number [phone] I have discussed this patient with attending [...] contact one of the cardiology nurses at [facility] during normal business hours(Thursday through Thursday, 8 AM to 5 PM) at . During nonbusiness hours (evenings, nights, weekends, holidays), you may contact the medical information specialist hospital orderly at . Return to work: -unemployed Driving: -No driving for 48 hours after catheterization. Follow up Appointments: ?? PCP: Coni Lim MD will see you on November 28, 2016 at 2:45 PM at [facility]. You may contact her office at [phone] with any questions or concerns ?? Cardiology: Please see Dr. Ling in [place], [place] on December 16 at 11:00 AM. [...] Nicotine Replacement Therapy , November 23, 2012: https://www.federalregister.gov/articles//2013-14509/modificati fbs-vl-ztxaxajj-ds-uqosjzmu-gxovqwpymmz-dutjewn-nkgywofx-sfo-zymd-nyd-ksujmjp-hu man-use Nicotine lozenge instructions: Use the 4 [...] Nicotine Replacement Therapy , November 23, 2012: https://www.federalregister.gov/articles//2013-17218/modificati phm-su-svrxzbna-nu-xlssmuhl-plvnnfmrvtb-ttvjyyi-urxbqjwe-lnd-tcwj-tha-rsznasd-hu man-use Remember to cut down on regular coffee intake to no more than 2-3 eight ounce cups a day. Substitute decaf or herbal tea, water or any other non caffeine drink for regular coffee to avoid rising caffeine levels when you don't smoke. You have been referred to the [place] Quitline and should expect to receive a phone call from them within the next several days. If you do not hear from them within one week of discharge please call them.The number is in the [employer] Tobacco Cessation folder you were given. 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 Unstable angina ??? CAD (coronary artery disease) -Coronary Angio 07/29/2013: 65% (FFR 0.74) mid LAD lesion s/p PCI with 3.5 X 18 mm JACINDA - [facility] 2009 post abnormal nuc stress [...] priority for the procedure was Urgent. The [facility] indication for the procedure was PCI [...] addressed with LAD stent angioplasty at [facility] in January 2014, DM2, HTN, dyslipidemia, continued tobacco use, and obesity transferred to [facility] for further evaluation of unstable angina. Underwent Cardiac catheterization to day (11/24/16)-CI of RCA Comfortable overnight Smoking cessation consult Plan: 1. 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 Unstable angina ??? CAD (coronary artery disease) -Coronary Angio 07/29/2013: 65% (FFR 0.74) mid LAD lesion s/p PCI with 3.5 X 18 mm JACINDA - [facility] 2009 post abnormal nuc stress [...] addressed with LAD stent angioplasty at [facility] in January 2014, DM2, HTN, dyslipidemia, continued tobacco use, and obesity transferred to [facility] for further evaluation of unstable angina. Cardiac catheterization today ( 7). Plan: 1. Unstable angina LAD and LCx disease defined at prior cardiac catheterizations (at [facility] and [facility]) Describes crescendo anginal symptoms which have [...] Progress Note Patient Name: Romeo Coelho Service: TIME STUDY CLERK / PA Responsible Attending: Roque Sanches MD Reason for continued hospitalization: Evaluation and management of unstable angina Active Problems: Active Hospital Problems Diagnosis ??? Unstable angina ??? CAD (coronary artery disease) -Coronary Angio 07/29/2013: 65% (FFR 0.74) mid LAD lesion s/p PCI with 3.5 X 18 mm JACINDA - [facility] 2009 post abnormal nuc stress [...] addressed with LAD stent angioplasty at [facility] in January 2014, DM2, HTN, dyslipidemia, continued tobacco use, and obesity transferred to [facility] for further evaluation of unstable angina. Cardiac catheterization anticipated tomorrow AM (11/24/16). Plan: 1. Unstable angina LAD and LCx disease defined at prior cardiac catheterizations (at [facility] and [facility]) Describes crescendo anginal symptoms which have [...] Progress Note Patient Name: Romeo Coelho Service: TIME STUDY CLERK / PA Responsible Attending: Roque Sanches MD Reason for continued hospitalization: Evaluation and management of unstable angina Active Problems: Active Hospital Problems Diagnosis ??? Unstable angina ??? CAD (coronary artery disease) -Coronary Angio 07/29/2013: 65% (FFR 0.74) mid LAD lesion s/p PCI with 3.5 X 18 mm JACINDA - [facility] 2009 post abnormal nuc stress [...] addressed with LAD stent angioplasty at [facility] in January 2014, DM2, HTN, dyslipidemia, continued tobacco use, and obesity transferred to [facility] for further evaluation of unstable angina. Cardiac catheterization anticipated soon. Plan: 1. Unstable angina LAD and LCx disease defined at prior cardiac catheterizations (at [facility] and [facility]) Describes crescendo anginal symptoms which have [...] EDT Cardiology Admission H&P Patient Name: Romeo oCelho Date of : 1965 Age: 51 y.o. Hospital Admit Date: 11/21/2016 Inpatient Attending: Roque Sanches MD PCP: Coni Lim MD Presenting Diagnosis/Chief Complaint: chest pain Active Problem List: Active Hospital Problems Diagnosis ??? Unstable angina Resolved Hospital Problems Diagnosis Date Resolved No resolved problems to display. History of Present Illness: HPI Mr. Coelho is a 51 yr M ( Transferred from [place]) PMH of CAD - multiple PCIs in past, latest cath in January 2014 ( at [facility] ) JACINDA x2 to [...] in ED. Symptoms reminiscent of his prior MT / Unstable angina. Compliant with meds . [...] Myocardial Infarction Father 46 MT, CABG ??? Diabetes Mother ??? Hypertension Mother [...] son (age 18 months), daughter 11 in [place], [place]. Takes care of his mother who has dementia and he takes her to dialysis. is disabled. Has grown daughter who is 29 years old. 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 Similar in character to prior MT / UA; Nitrate responsive. ECG : nsr [...] in the outpatient cardiac rehabilitation program at [place] was discussed. Patient agrees to a referral [...] Myocardial Infarction Father 46 MT, CABG ??? Diabetes Mother ??? Hypertension Mother [...] his brain. TREATMENT PLAN/RECOMMENDATIONS: [X ] Provide [facility] Tobacco Cessation Packet Discuss and prescribe (if [...] 8-end 1 mg PO BID Refer to [place] [employer]uit [employer] e-referral placed X Refer to [place] 802 Quits (fill out and fax enrollment [...] Follow up: with his PCP and the [place] quitline, 802QUITS Patient not ready to quit at this time. Follow up: X It is strongly recommended that the patient be discharged to home on Tobacco Treatment medication(s) as recommended above and follow up with either PCP and/or Quit line [id number]. X These recommendations have been discussed with the patient's primary team. DARCY STALEY APRN, [facility] Pager #[phone] [facility] Thoracic Surgery [...] Within the Past 30 Days: None at [facility], nor at outside hospitals, per pt's report. 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 I've been disabled for five years due to Fibromyalgia and Arthritis. Home Environment: Lives with his , Dasia in [place], [place]. Social & Family Supports/Community Resources: Dasia Coelho (Spouse) [address] [facility] [address] (H) [phone] (M) Behavioral Health History: Per pt report, [...] Coverage: Yes, has Silver Script. Preferred Pharmacy: [id number] - [place], [place] - [address] [place] [address] ? [address] [place] [phone] ? Not a 24 hour pharmacy; exact hours not known Other: None Primary Care Provider: Coni Lim MD [phone] Patient/Caregiver Goals of Treatment: To return home and to his normal activities. Potential Needs for Transition of Care: Rehab/SNF: Pt has never been a pt in a rehab setting. Home Health: [facility] in the past (after right knee surgery). DME: Cane at home (doesn't consistently use it). Dialysis: N/A Community Resources: None Transportation: I may need RCT transportation. My car is in [facility] parking lot. I havethe only set of keys. Other: None Anticipated Barriers to Discharge/Special Considerations: No barriers noted at this time. Plan: A member of the Care Management team will continue to monitor progress, follow for continuity of care and assist with transition of care planning. SON MARLEY RN Pager: [phone] * Plan of Care - Christy Medina [...] Radiograph today, Echo and Cardiac Enzymes Pending Supervisor Pressing Department ? Thursday more likely Thursday (pt. Informed) [...] online chart. Telemetry Report: [id number]: Intermittent SA, OR 0.17, QRS 0.08, RR 0.75, QT 0.35, [...] ability. Romeo Weineroney was offered copies of [facility] publications; Are You a Hospital Inpatient or Outpatient?and Medicare Rights and Protections. Notice has been signed along with date and time, a copy of notice made and given to patient/sales training representative. Original notice to be scanned into [...] Procedure Name Priority Date/Time Associated Diagnosis Comments CARPENTER SCAN 11/26/2016 12:00 AM EDT POCT GLUCOSE Routine 11/25/2016 7:42 AM EDT EKG 12-LEAD Routine 11/25/2016 7:23 AM EDT Unstable angina BMP W/FASTING GLUCOSE Routine 11/25/2016 4:52 AM EDT HEMOGRAM Routine 11/25/2016 4:52 AM EDT DIFFERENTIAL, AUTOMATED Routine 11/26/19 4:52 AM EDT CARDIAC ENZYMES ([facility]) Routine 11/25/2016 4:52 AM EDT CBC (WITH [...] Routine 11/22/2016 12:11 PM EDT CARDIAC ENZYMES ([facility]) STAT 11/22/2016 10:06 AM EDT APTT Routine [...] 11/23/19 17 3:58 AM EDT CARDIAC ENZYMES ([facility]) Routine 11/22/2016 3:58 AM EDT APTT STAT 11/22/2016 3:58 AM EDT CBC (WITH DIFF) Routine 11/22/2016 3:58 AM EDT LIPID PANEL (REFLEX DIRECT LDL) Routine 11/22/2016 3:58 AM EDT EKG 12-LEAD STAT 11/21/2016 8:34 PM EDT Unstable angina HEMOGRAM STAT 11/21/2016 8:32 PM EDT DIFFERENTIAL, AUTOMATED STAT 11/22/19 17 8:32 PM EDT CARDIAC ENZYMES ([facility]) STAT 11/21/2016 8:32 PM EDT APTT STAT [...] in this encounter Results * SCAN DOC: CARPENTER (11/26/2016 12:00 AM EDT) Anatomical Region Laterality Modality Other Narrative 11/26/2016 12:00 AM EDT Ordered by an unspecified provider. Scanning Provider MEDIA MGR SCAN EXT O RDR/RSLT * POCT Glucose (11/25/2016 7:42 AM EDT) [facility] Glucose, POC 123 65 - 199 mg/dL [facility] Comment: Supplemental ranges: <140 mg/dL before meals <180 mg/dL all other times of the day Blood specimen (specimen) 11/25/2016 7:42 AM EDT 11/25/2016 7:42 AM EDT Roque Sanches MD POINT OF CARE TEST O RDERABLES Performing Organization Address [facility] Co de Phone Number [facility] [place] [address] * EKG 12 Lead (11/25/2016 7:23 AM EDT) Ventricular rate 70 BPM MUSE SYSTEM Atrial Rate 70 BPM MUSE SYSTEM P-R Interval 140 ms MUSE SYSTEM QRS Duration 88 ms MUSE SYSTEM Q-T Interval 388 ms MUSE SYSTEM QTC Calculated (Bezet) 419 ms MUSE SYSTEM Calculated P Turlock 3 degrees MUSE SYSTEM Calculated R Turlock 19 degrees MUSE SYSTEM Calculated T Turlock 42 degrees MUSE SYSTEM INTERPRETATION Normal sinus rhythm Normal ECG When compared with ECG of 24-NOV-2016 19:05, (unconfirmed) No significant change was found I personally reviewed the tracing and edited the fellows interpretation Confirmed by fellow MD Kalin, Nessa Lee ([id number]) on 11/25/2016 10:44:22 AM Confirmed by MD Meli, Tigre ([id number]) on 11/25/2016 5:24:33 PM MUSE SYSTEM 11/25/2016 7:23 AM EDT 11/25/2016 5:24 PM EDT Roque Sanches MD ECG ORDERABLES Performing Organization Address [facility] Co de Phone Number MUSE SYSTEM * Cardiac Enzymes (11/25/2016 4:52 AM EDT) Troponin-T <0.03 <=0.03 ng/mL [facility] Comment: 0.03 ng/mL: Represents the 99th percentile upper reference limit for normals. >0.03 ng/mL: Elevated cardiac troponin T level indicative of myocardial damage. Diagnosis of acute, evolving or recent MT requires a typical rise and gradual fall [...] consensus document of the Joint Society of Cardiology/[place] College of Cardiology Committee for the redefinition of myocardial infarction. ??Journal of the [place] College of Cardiology 2000; 36: 959-969] Creatine Kinase 139 0 - 200 unit/L [facility] Comment:result rechecked-sb Blood specimen (specimen) Venous Draw / Unknown 11/25/2016 4:52 AM EDT 11/25/2016 5:41 AM EDT Narrative Resulting Agency Comment Spec In Lab Roque Sanches MD CHEMISTRY ORDERABLES [facility] [place] [address] * Differential, Automated (11/25/2016 4:52 AM EDT) Neutrophil % 61.6 % [facility] Neutrophil Absolute 5.56 1.70 - 6.10 x10(3)/[facility] Lymph % 26.8 % [facility] Lymphocytes Abs 2.4 0.9 - 3.2 x10(3)/[facility] Monocyte % 6.3 % [facility] Monocyte Abs 0.6 0.3 - 0.9 x10(3)/[facility] Eos % 4.1 % [facility] Eosinophils Abs 0.4 0.0 - 0.4 x10(3)/[facility] Basophil % 0.8 % [facility] Baso Absolute 0.1 0.0 - 0.1 x10(3)/[facility] Immature Gran % 0.40 % [facility] Comment: Immature granulocytes(IG's)percentage and absolute count will include metamyelocytes, myelocytes, and promyelocytes. Blood smears from CBCs yielding IG's will be scanned manually for concordance. If this scan disagrees with the automated IG or if promyelocytes are noted, a manual differential will be performed. Immature Gran Absolute 0.04 0.00 - 0.04 x10(3)/[facility] Blood specimen (specimen) 11/25/2016 4:52 AM EDT 11/25/2016 5:37 AM EDT Narrative Resulting Agency Comment Spec In Lab Roque Sanches MD HEMATOLOGY ORDERABLE S [facility] [place] [address] * (ABNORMAL) Hemogram (11/25/2016 4:52 AM EDT) White Blood Cell 9.0 4.0 - 9.5 x10(3)/[facility] Red Blood Cell 5.04 4.58 - 5.54 x10(6)/[facility] Hemoglobin 14.5 13.7 - 16.5 gm/dL [facility] Hematocrit 44.2 40.5 - 48.5 % [facility] Mean Cell Volume 87.7 82.9 - 93.1 [facility] Mean Cell Hemoglobin 28.8 27.5 - 32.1 pg [facility] Mean Cell Hemoglobin Concentration 32.8 32.0 - 35.7 gm/dL [facility] Platelet 214 145 - 357 x10(3)/[facility] RDW Standard Deviation 45.1(H) 36.0 - 45.0 [facility] RDW coefficient of variation 14.0(H) 11.4 - 13.8 % [facility] Mean Platelet Volume 11.1 7.6 - 12.9 [facility] NRBC% auto 0.0 % [facility] NRBC Absolute 0.000 0.000 - 0.000 x10(3)/[facility] Blood specimen (specimen) 11/25/2016 4:52 AM EDT 11/25/2016 5:37 AM EDT Narrative Resulting Agency Comment Spec In Lab Roque Sanches MD HEMATOLOGY ORDERABLE S [facility] [place] [address] * (ABNORMAL) BMP w/fasting Glucose (11/25/2016 4:52 AM EDT) Glucose Fasting 113(H) 65 - 99 mg/dL [facility] Comment: ?Fasting* Glucose Interpretive Criteria [...] of Diabetes Mellitus, Position Statement from the [place] Diabetes Association. ??Diabetes Care, Volume 33, Supplement 1, Aug 2009 Blood Urea Nitrogen 10 10 - 20 mg/dL [facility] Creatinine 0.87 0.80 - 1.50 mg/dL [facility] Comment: Please note that the pediatric reference intervals supplied above were not validated at [facility]. Results from pediatric patients should be interpreted in conjunction to the patient's age, height and muscle mass. Sodium 142 135 - 145 mmol/L [facility] Potassium 3.9 3.5 - 5.0 mmol/L [facility] Comment: Please note: ??Patients with WBC >100,000 may have falsely elevated Potassium levels. ??For accurate Potassium quantification in these patients send serum separator tube (gold top) for subsequent determinations. ??Contact the Clinical Chemistry Laboratory if there are any questions. Chloride 108(H) 98 - 107 mmol/L [facility] Carbon Dioxide 19(L) 22 - 31 mmol/L [facility] Anion Gap 15 5 - 15 mmol/L [facility] Calcium 9.5 8.5 - 10.5 mg/dL [facility] Est Glomerular Filtration Rate >60 >=60 [facility] Comment: This estimated GFR [...] the following links into your internet browser. [email or web address] Blood specimen (specimen) 11/25/2016 4:52 AM EDT 11/25/2016 5:37 AM EDT Narrative Resulting Agency Comment Spec In Lab Roque Sanches MD CHEMISTRY ORDERABLES Performing Organization Address [facility] Co de Phone Number [facility] [place] [id number] * EKG 12 Lead (11/24/2016 7:05 PM EDT) Ventricular rate 85 BPM MUSE SYSTEM Atrial Rate 85 BPM MUSE SYSTEM P-R Interval 152 ms MUSE SYSTEM QRS Duration 86 ms MUSE SYSTEM Q-T Interval 354 ms MUSE SYSTEM QTC Calculated (Bezet) 421 ms MUSE SYSTEM Calculated P Turlock 55 degrees MUSE SYSTEM Calculated R Turlock 44 degrees MUSE SYSTEM Calculated T Turlock 40 degrees MUSE SYSTEM INTERPRETATION Normal sinus rhythm Normal ECG When compared with ECG of 24-NOV-2016 07:20, No significant change was found Confirmed by Wale Mckeon MD ([id number]) on 11/25/2016 4:12:17 PM MUSE SYSTEM 11/24/2016 7:05 PM EDT 11/25/2016 4:12 PM EDT Roque Sanches MD ECG ORDERABLES Performing Organization Address [facility] Co de Phone Number MUSE SYSTEM * CARDIAC CATHETERIZATION (11/24/2016 6:04 PM EDT) Anatomical Region Laterality Modality Other Narrative 11/24/2016 6:23 PM EDT ?[facility] ? Cardiac Catheterization/Intervention Report ? Patient Name: Romeo Coelho. ? Procedure Date: 11/24/2016 ? A #: [id number] ? Primary Physician: Alexandru, Anton T ? Case #: [id number] ? File Name: [id number] ? Catheterization Order Number: [id number] ? [facility] ? Final Report [place], [place] ? Patient Name: ? Romeo Coelho ? ID#: ?[id number] ? : ?1965 ? Procedure Date: ? November 24, 2016 ?Case #: ? [id number] ? Room: ? 6 ? Case Physician: [...] presented with: unstable angina (w/i 60 days). [place] ?Cardiovascular Society angina class was III. 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 ? Comments: ?Classic anginal [...] Procedure Note Anton Horvath MD - 11/25/2016 [place] [facility] Cardiac Catheterization/Intervention Report Patient Name: Romeo Coeloh Procedure Date: 11/24/2016 A #: [id number] Primary Physician: Anton Horvath Case #: [id number] File Name: [id number] Catheterization Order Number: [id number] [facility] FinalReport [place], [place] Patient Name: Romeo Coelho ID#:[id number] :1965 Procedure Date: November 24, 2016 Case [...] presented with: unstable angina (w/i 60 days). [employer] [employer] angina class was III. This [...] time was 8.0 minutes, dose area product [id number] and air kerma was 1,689 mGY. [...] medical regimen was changed as follows: Continue residential aspirin and plavix. Comments: Classic anginal symptoms [...] Glucose, POC 88 65 - 199 mg/dL [facility] Comment: Supplemental ranges: <140 mg/dL before meals <180 mg/dL all other times of the day Blood specimen (specimen) 11/24/2016 4:27 PM EDT 11/24/2016 4:27 PM EDT Roque Sanches MD POINT OF CARE TEST O RDERABLES [facility] [place] [address] * POCT Glucose (11/24/2016 11:56 AM EDT) Glucose, POC 110 65 - 199 mg/dL [facility] Comment: Supplemental ranges: <140 mg/dL before meals <180 mg/dL all other times of the day Blood specimen (specimen) 11/24/2016 11:56 AM EDT 11/24/2016 11:56 AM EDT Roque Sanches MD POINT OF CARE TEST O RDERAAIRAM Performing Organization Address [facility] Co de Phone Number [facility] [place] [address] * POCT Glucose (11/24/2016 7:43 AM EDT) Glucose, POC 131 65 - 199 mg/dL [facility] Comment: Supplemental ranges: <140 mg/dL before meals <180 mg/dL all other times of the day Blood specimen (specimen) 11/24/2016 7:43 AM EDT 11/24/2016 7:43 AM EDT Roque Sanches MD POINT OF CARE TEST O RDERAAIRAM Performing Organization Address [facility] Co de Phone Number [facility] [place] [address] * EKG 12 Lead (11/24/2016 7:20 AM EDT) Ventricular rate 65 BPM MUSE SYSTEM Atrial Rate 65 BPM MUSE SYSTEM P-R Interval 158 ms MUSE SYSTEM QRS Duration 90 ms MUSE SYSTEM Q-T Interval 396 ms MUSE SYSTEM QTC Calculated (Bezet) 411 ms MUSE SYSTEM Calculated P Turlock 51 degrees MUSE SYSTEM Calculated R Turlock 26 degrees MUSE SYSTEM Calculated T Turlock 24 degrees MUSE SYSTEM INTERPRETATION Normal sinus rhythm Normal ECG When compared with ECG of 23-NOV-2016 07:16, No significant change was found I personally reviewed the tracing and edited the fellows interpretation Confirmed by fellow MD Kalin, Nessa Lee ([id number]) on 11/24/2016 8:23:27 AM Confirmed by MD Margoth, Rajni ([id number]) on 11/24/2016 6:22:34 PM MUSE SYSTEM 11/24/2016 7:20 AM EDT 11/24/2016 6:22 PM EDT Roque Sanches MD ECG ORDERABLES Performing Organization Address [facility] Co de Phone Number MUSE SYSTEM * (ABNORMAL) Differential, Automated (11/24/2016 6:20 AM EDT) Neutrophil % 54.5 % [facility] Neutrophil Absolute 4.85 1.70 - 6.10 x10(3)/[facility] Lymph % 31.5 % [facility] Lymphocytes Abs 2.8 0.9 - 3.2 x10(3)/[facility] Monocyte % 8.1 % [facility] Monocyte Abs 0.7 0.3 - 0.9 x10(3)/[facility] Eos % 4.4 % [facility] Eosinophils Abs 0.4 0.0 - 0.4 x10(3)/[facility] Basophil % 0.9 % [facility] Baso Absolute 0.1 0.0 - 0.1 x10(3)/[facility] Immature Gran % 0.60 % [facility] Comment: Immature granulocytes(IG's)percentage and absolute count will include metamyelocytes, myelocytes, and promyelocytes. Blood smears from CBCs yielding IG's will be scanned manually for concordance. If this scan disagrees with the automated IG or if promyelocytes are noted, a manual differential will be performed. Immature Gran Absolute 0.05(H) 0.00 - 0.04 x10(3)/[facility] Blood specimen (specimen) 11/24/2016 6:20 AM EDT 11/24/2016 6:34 AM EDT Narrative Resulting Agency Comment Spec In Lab Drew Pepe MD HEMATOLOGY ORDERABLE S [facility] [place] [address] * (ABNORMAL) Hemogram (11/24/2016 6:20 AM EDT) White Blood Cell 8.9 4.0 - 9.5 x10(3)/[facility] Red Blood Cell 4.93 4.58 - 5.54 x10(6)/[facility] Hemoglobin 14.7 13.7 - 16.5 gm/dL [facility] Hematocrit 43.2 40.5 - 48.5 % [facility] Mean Cell Volume 87.6 82.9 - 93.1 fL [facility] Mean Cell Hemoglobin 29.8 27.5 - 32.1 pg [facility] Mean Cell Hemoglobin Concentration 34.0 32.0 - 35.7 gm/dL [facility] Platelet 203 145 - 357 x10(3)/mc L [facility] RDW Standard Deviation 44.3 36.0 - 45.0 fL [facility] RDW coefficient of variation 13.9(H) 11.4 - 13.8 % [facility] Mean Platelet Volume 11.0 7.6 - 12.9 fL [facility] NRBC% auto 0.0 % [facility] NRBC Absolute 0.000 0.000 - 0.000 x10(3)/mc L [facility] Blood specimen (specimen) 11/24/2016 6:20 AM EDT 11/24/2016 6:34 AM EDT Narrative Resulting Agency Comment Spec In Lab Drew Pepe MD HEMATOLOGY ORDERABLE S [facility] [place] [address] * (ABNORMAL) APTT (11/24/2016 6:20 AM EDT) [facility] Partial Thromboplastin Time 110(H) 25 - 35 sec [facility] Comment: The recommended therapeutic range for full dose, unfractionated heparin at [facility] is 80 ? 114 seconds. The use of the anti-Xa (heparin) level rather than the PTT is recommended for monitoring anticoagulation intensity in critically ill patients receiving unfractionated heparin by continuous IV infusion. Blood specimen (specimen) 11/24/2016 6:20 AM EDT 11/24/2016 6:34 AM EDT Narrative Resulting Agency Comment Spec In Lab Drew Pepe MD HEMATOLOGY ORDERABLE S Performing Organization Address [facility] Co de Phone Number [facility] [place] [address] * (ABNORMAL) APTT (11/23/2016 11:27 PM EDT) Partial Thromboplastin Time 130(H) 25 - 35 sec [facility] Comment: The recommended therapeutic range for full dose, unfractionated heparin at [facility] is 80 ? 114 seconds. The use of the anti-Xa (heparin) level rather than the PTT is recommended for monitoring anticoagulation intensity in critically ill patients receiving unfractionated heparin by continuous IV infusion. Blood specimen (specimen) 11/23/2016 11:27 PM EDT 11/23/2016 11:30 PM EDT Narrative Resulting Agency Comment Spec In Lab Drew Pepe MD HEMATOLOGY ORDERABLE S Performing Organization Address [facility] Co de Phone Number [facility] [place] [address] * POCT Glucose (11/23/2016 7:36 PM EDT) Glucose, POC 131 65 - 199 mg/dL [facility] Comment: Supplemental ranges: <140 mg/dL before meals <180 mg/dL all other times of the day Blood specimen (specimen) 11/23/2016 7:36 PM EDT 11/23/2016 7:36 PM EDT Roque Sanches MD POINT OF CARE TEST O RDERABLES Performing Organization Address [facility]/ZIP Co de Phone Number [facility] [place] [address] * POCT Glucose (11/23/2016 5:20 PM EDT) Glucose, POC 107 65 - 199 mg/dL [facility] Comment: Supplemental ranges: <140 mg/dL before meals <180 mg/dL all other times of the day Blood specimen (specimen) 11/23/2016 5:20 PM EDT 11/23/2016 5:20 PM EDT Roque Sanches MD POINT OF CARE TEST O EVITA Performing Organization Address [facility] Co de Phone Number [facility] [place] [address] * (ABNORMAL) APTT (11/23/2016 12:39 PM EDT) Partial Thromboplastin Time 68(H) 25 - 35 sec [facility] Comment: The recommended therapeutic range for full dose, unfractionated heparin at [facility] is 80 ? 114 seconds. The use of the anti-Xa (heparin) level rather than the PTT is recommended for monitoring anticoagulation intensity in critically ill patients receiving unfractionated heparin by continuous IV infusion. Blood specimen (specimen) 11/23/2016 12:39 PM EDT 11/23/2016 12:51 PM EDT Narrative Resulting Agency Comment Spec In Lab Roque Sanches MD HEMATOLOGY ORDERABLE S Performing Organization Address [facility] de Phone Number [facility] [place] [address] * POCT Glucose (11/23/2016 11:47 AM EDT) Glucose, POC 116 65 - 199 mg/dL [facility] Comment: Supplemental ranges: <140 mg/dL before meals <180 mg/dL all other times of the day Blood specimen (specimen) 11/23/2016 11:47 AM EDT 11/23/2016 11:47 AM EDT Roque Sanches MD POINT OF CARE TEST O EVITA Performing Organization Address [facility] Co de Phone Number [facility] [place] [address] * POCT Glucose (11/23/2016 7:36 AM EDT) Glucose, POC 122 65 - 199 mg/dL [facility] Comment: Supplemental ranges: <140 mg/dL before meals <180 mg/dL all other times of the day Blood specimen (specimen) 11/23/2016 7:36 AM EDT 11/23/2016 7:36 AM EDT Roque Sanches MD POINT OF CARE TEST O RDERABLES Performing Organization Address [facility] de Phone Number [facility] [place] [address] * EKG 12 Lead (11/23/2016 7:16 AM EDT) Ventricular rate 72 BPM MUSE SYSTEM Atrial Rate 72 BPM MUSE SYSTEM P-R Interval 158 ms MUSE SYSTEM QRS Duration 90 ms MUSE SYSTEM Q-T Interval 382 ms MUSE SYSTEM QTC Calculated (Bezet) 418 ms MUSE SYSTEM Calculated P Turlock 47 degrees MUSE SYSTEM Calculated R Turlock 28 degrees MUSE SYSTEM Calculated T Turlock 32 degrees MUSE SYSTEM INTERPRETATION Normal sinus rhythm Normal ECG When compared with ECG of 22-NOV-2016 07:12, No significant change was found Confirmed by MD ANIVAL, DEBORAH ([id number]) on 11/23/2016 1:58:05 PM MUSE SYSTEM 11/23/2016 7:16 AM EDT 11/23/2016 1:58 PM EDT Roque Sanches MD ECG ORDERABLES Performing Organization Address [facility] de Phone Number MUSE SYSTEM * (ABNORMAL) BMP w/fasting Glucose (11/23/2016 6:24 AM EDT) Glucose Fasting 143(H) 65 - 99 mg/dL [facility] Comment: ?Fasting* Glucose Interpretive Criteria [...] of Diabetes Mellitus, Position Statement from the [place] [employer]. ??Diabetes Care, Volume 33, Supplement 1, Aug 2009 Blood Urea Nitrogen 10 10 - 20 mg/dL [facility] Creatinine 0.98 0.80 - 1.50 mg/dL [facility] Comment: Please note that the pediatric reference intervals supplied above were not validated at [facility]. Results from pediatric patients should be interpreted in conjunction to the patient's age, height and muscle mass. Sodium 142 135 - 145 mmol/L [facility] Potassium 3.9 3.5 - 5.0 mmol/L [facility] Comment: Please note: ??Patients with WBC >100,000 may have falsely elevated Potassium levels. ??For accurate Potassium quantification in these patients send serum separator tube (gold top) for subsequent determinations. ??Contact the Clinical Chemistry Laboratory if there are any questions. Chloride 106 98 - 107 mmol/L [facility] Carbon Dioxide 20(L) 22 - 31 mmol/L [facility] Anion Gap 16(H) 5 - 15 mmol/L [facility] Calcium 9.6 8.5 - 10.5 mg/dL [facility] Est Glomerular Filtration Rate >60 >=60 [facility] Comment: This estimated GFR [...] the following links into your internet browser. [email or web address]/DHnkdep [email or web address] Blood specimen (specimen) 11/23/2016 6:24 AM EDT 11/23/2016 6:32 AM EDT Narrative Resulting Agency Comment Spec In Lab Roque Sanches MD CHEMISTRY ORDERABLES Performing Organization Address City/[facility]/ZIP Co de Phone Number [facility] [place] [address] * (ABNORMAL) APTT (11/23/2016 6:24 AM EDT) [facility] Partial Thromboplastin Time 103(H) 25 - 35 sec [facility] Comment: The recommended therapeutic range for full dose, unfractionated heparin at [facility] is 80 ? 114 seconds. The use of the anti-Xa (heparin) level rather than the PTT is recommended for monitoring anticoagulation intensity in critically ill patients receiving unfractionated heparin by continuous IV infusion. Blood specimen (specimen) 11/23/2016 6:24 AM EDT 11/23/2016 6:32 AM EDT Narrative Resulting Agency Comment Spec In Lab Drew Pepe MD HEMATOLOGY ORDERABLE S Performing Organization Address [facility]/ZIP Co de Phone Number [facility] [place] [address] * Differential, Automated (11/23/2016 6:24 AM EDT) [facility] Neutrophil % 58.2 % [facility] Neutrophil Absolute 4.63 1.70 - 6.10 x10(3)/[facility] Lymph % 29.0 % [facility] Lymphocytes Abs 2.3 0.9 - 3.2 x10(3)/[facility] Monocyte % 7.3 % [facility] Monocyte Abs 0.6 0.3 - 0.9 x10(3)/[facility] Eos % 4.1 % [facility] Eosinophils Abs 0.3 0.0 - 0.4 x10(3)/[facility] Basophil % 1.0 % [facility] Baso Absolute 0.1 0.0 - 0.1 x10(3)/[facility] Immature Gran % 0.40 % [facility] Comment: Immature granulocytes(IG's)percentage and absolute count will include metamyelocytes, myelocytes, and promyelocytes. Blood smears from CBCs yielding IG's will be scanned manually for concordance. If this scan disagrees with the automated IG or if promyelocytes are noted, a manual differential will be performed. Immature Gran Absolute 0.03 0.00 - 0.04 x10(3)/mcL [facility] Blood specimen (specimen) 11/23/2016 6:24 AM EDT 11/23/2016 6:32 AM EDT Narrative Resulting Agency Comment Spec In Lab Drew Pepe MD HEMATOLOGY ORDERABLE S [facility] [place] [address] * (ABNORMAL) Hemogram (11/23/2016 6:24 AM EDT) White Blood Cell 8.0 4.0 - 9.5 x10(3)/mc L [facility] Red Blood Cell 5.00 4.58 - 5.54 x10(6)/mc L [facility] Hemoglobin 14.5 13.7 - 16.5 gm/dL [facility] Hematocrit 43.1 40.5 - 48.5 % [facility] Mean Cell Volume 86.2 82.9 - 93.1 fL [facility] Mean Cell Hemoglobin 29.0 27.5 - 32.1 pg [facility] Mean Cell Hemoglobin Concentration 33.6 32.0 - 35.7 gm/dL [facility] Platelet 207 145 - 357 x10(3)/mc L [facility] RDW Standard Deviation 44.5 36.0 - 45.0 [facility] RDW coefficient of variation 14.0(H) 11.4 - 13.8 % [facility] Mean Platelet Volume 10.4 7.6 - 12.9 fL [facility] NRBC% auto 0.0 % [facility] NRBC Absolute 0.000 0.000 - 0.000 x10(3)/mc L [facility] Blood specimen (specimen) 11/23/2016 6:24 AM EDT 11/23/2016 6:32 AM EDT Narrative Resulting Agency Comment Spec In Lab Drew Pepe MD HEMATOLOGY ORDERABLE S Performing Organization Address [facility]/ZIP Co de Phone Number [facility] [place] [address] * (ABNORMAL) APTT (11/23/2016 12:03 AM EDT) Partial Thromboplastin Time 116(H) 25 - 35 sec [facility] Comment: The recommended therapeutic range for full dose, unfractionated heparin at [facility] is 80 ? 114 seconds. The use of the anti-Xa (heparin) level rather than the PTT is recommended for monitoring anticoagulation intensity in critically ill patients receiving unfractionated heparin by continuous IV infusion. Blood specimen (specimen) 11/23/2016 12:03 AM EDT 11/23/2016 12:07 AM EDT Narrative Resulting Agency Comment Spec In Lab Drew Pepe MD HEMATOLOGY ORDERABLE S Performing Organization Address [facility] Co de Phone Number [facility] [place] [address] * POCT Glucose (11/22/2016 7:45 PM EDT) Glucose, POC 102 65 - 199 mg/dL [facility] Comment: Supplemental ranges: <140 mg/dL before meals <180 mg/dL all other times of the day Blood specimen (specimen) 11/22/2016 7:45 PM EDT 11/22/2016 7:45 PM EDT Roque Sanches MD POINT OF CARE TEST O RDERABLES Performing Organization Address [facility] Co de Phone Number [facility] [place] [address] * Cardiac Enzymes (11/22/2016 5:11 PM EDT) [facility] Troponin-T <0.03 <=0.03 ng/mL [facility] Comment: 0.03 ng/mL: Represents the 99th percentile upper reference limit for normals. >0.03 ng/mL: Elevated cardiac troponin T level indicative of myocardial damage. Diagnosis of acute, evolving or recent MT requires a typical rise and gradual fall [...] consensus document of the Joint Society of Cardiology/[place] [employer] Committee for the redefinition of myocardial infarction. ??Journal of the [place] [employer] 2000; 36: 959-969] Creatine Kinase 46 0 - 200 unit/L [facility] Blood specimen (specimen) 11/22/2016 5:11 PM EDT 11/22/2016 5:15 PM EDT Narrative Resulting Agency Comment Spec In Lab Roque Sanches MD CHEMISTRY ORDERABLES [facility] [place] [address] * (ABNORMAL) APTT (11/22/2016 5:11 PM EDT) [facility] Partial Thromboplastin Time 76(H) 25 - 35 sec [facility] Comment: The recommended therapeutic range for full dose, unfractionated heparin at [facility] is 80 ? 114 seconds. The use of the anti-Xa (heparin) level rather than the PTT is recommended for monitoring anticoagulation intensity in critically ill patients receiving unfractionated heparin by continuous IV infusion. Blood specimen (specimen) 11/22/2016 5:11 PM EDT 11/22/2016 5:15 PM EDT Narrative Resulting Agency Comment Spec In Lab Drew Pepe MD HEMATOLOGY ORDERABLE S Performing Organization Address [facility] Co de Phone Number [facility] [place] [address] * POCT Glucose (11/22/2016 4:50 PM EDT) Glucose, POC 100 65 - 199 mg/dL [facility] Comment: Supplemental ranges: <140 mg/dL before meals <180 mg/dL all other times of the day Blood specimen (specimen) 11/22/2016 4:50 PM EDT 11/22/2016 4:50 PM EDT Roque Sanches MD POINT OF CARE TEST O RDERABLES Performing Organization Address [facility] Co de Phone Number [facility] [place] [address] * ECHO COMPLETE W CONTRAST (11/22/2016 12:59 PM EDT) EF 60 [facility]ART[facility] SYSTEM Anatomical Region Laterality Modality Other 11/22/2016 Narrative 11/22/2016 1:38 PM EDT Procedure: ?Transthoracic Echocardiogram Patient: ?COELHOCOLE DOHERTY A ? (Age): 1965(51y) Med Rec#: ? [id number] ?Sex: ?M ? Site Loc: ? [facility] ?Ht / Wt: ??178(cm)/95(kg) Pt. Loc: ?Adult Floor ? BSA: ?2.13 Study Date: ?? 11/22/2016 ?Pt. Type: Inpatient Tape: ? Referring: Roque Sanches ([id number]) Reading: Roque Sanches ([id number]) Food Order Delivery Runner: Jorge A Street Diagnosis: *ICD-10-PCS Unstable angina (I20.0) CPT Codes: *Echo Full (09845) *Spectral Doppler (52074) *Color Doppler (17275) *Optison (29932DI) Rhythm: ? Sinus BP: ? 113/70 SUMMARY: [...] E-wave Vmax ?0.5 ?m/sec ? MV deceleration [id number] ?msec ? MV A-wave Vmax ?0.4 ?m/sec [...] ? Mid-Inferior ?Normal ? Mid-Inferoseptal ?Normal ? [place]-Septal ? Normal ? [place]-Anterior ? Normal ? [place]-Lateral ?Normal ? [place]-Inferior ? Normal ? [place]-Tip ?Normal ? This report has been electronically signed by: Roque Sanches M.D. ? 11/22/2016 13:38:29 Images reviewed and interpretation verified [facility] Cardiac Ultrasound Laboratory Procedure Note Roque Sanches MD - 11/22/2016 Procedure: Transthoracic Echocardiogram Patient: LAQUITA HARRIS(Age): 1965(51y) Med Rec#: [id number] Sex: M Site Loc: [facility] Ht / Wt: 178(cm)/95(kg) Pt. Loc: Adult Floor BSA: 2.13 Study Date: 11/22/2016 Pt. Type: Inpatient Tape: Referring: Roque Sanches ([id number]) Reading: Roque Sanches () Food Order Delivery Runner: Jorge A Street Diagnosis: *ICD-10-PCS Unstable angina (I20.0) CPT Codes: *Echo Full (51723) *Spectral Doppler (27797) *Color Doppler (13489) *Optison ([id number]) Rhythm: Sinus BP: 113/70 SUMMARY: 1. The [...] MV E-wave Vmax 0.5 m/sec MV deceleration [id number] msec MV A-wave Vmax 0.4 m/sec MV [...] Hypokinetic Mid-Posterolateral Hypokinetic Mid-Inferior Normal Mid-Inferoseptal Normal [place]-Septal Normal [place]-Anterior Normal [place]-Lateral Normal [place]-Inferior Normal [place]-Tip Normal This report has been electronically signed by: Roque Sanches M.D. 11/22/2016 13:38:29 Images reviewed and interpretation verified [facility] Cardiac Ultrasound Laboratory Drew Pepe MD ECHO ORDERABLES * POCT Glucose (11/22/2016 12:11 PM EDT) Glucose, POC 94 65 - 199 mg/dL [facility] Comment: Supplemental ranges: <140 mg/dL before meals <180 mg/dL all other times of the day Blood specimen (specimen) 11/22/2016 12:11 PM EDT 11/22/2016 12:11 PM EDT Roque Sanches MD POINT OF CARE TEST O RDERABLES [facility] [place] [address] * Potassium (11/22/2016 10:06 AM EDT) Potassium 3.8 3.5 - 5.0 mmol/L [facility] Comment: Please note: ??Patients with [...] In Lab Drew Pepe MD CHEMISTRY ORDERABLES [facility] [place] [address] * Cardiac Enzymes (11/22/2016 10:06 AM EDT) Pathologist [facility] Troponin-T <0.03 <=0.03 ng/mL [facility] Comment: 0.03 ng/mL: Represents the 99th percentile upper reference limit for normals. >0.03 ng/mL: Elevated cardiac troponin T level indicative of myocardial damage. Diagnosis of acute, evolving or recent MT requires a typical rise and gradual fall [...] consensus document of the Joint Society of Cardiology/[place] [employer] Cardiology Committee for the redefinition of myocardial infarction. ??Journal of the [place] College of [employer]iology 2000; 36: 959-969] Creatine Kinase 48 0 - 200 unit/L [facility] Blood specimen (specimen) 11/22/2016 10:06 AM EDT 11/22/2016 10:16 AM EDT Narrative Resulting Agency Comment Spec In Lab Drew Pepe MD CHEMISTRY ORDERABLES Performing Organization Address City/[facility]/ZIP Co de Phone Number [facility] [place] [address] * (ABNORMAL) APTT (11/22/2016 10:06 AM EDT) [facility] Signature Partial Thromboplastin Time 104(H) 25 - 35 sec [facility] Comment: The recommended therapeutic range for full dose, unfractionated heparin at [facility] is 80 ? 114 seconds. The use of the anti-Xa (heparin) level rather than the PTT is recommended for monitoring anticoagulation intensity in critically ill patients receiving unfractionated heparin by continuous IV infusion. Blood specimen (specimen) 11/22/2016 10:06 AM EDT 11/22/2016 10:16 AM EDT Narrative Resulting Agency Comment Spec In Lab Roque Sanches MD HEMATOLOGY ORDERABLE S Performing Organization Address [facility]/ZIP Co de Phone Number [facility] [place] [address] * XR Chest PA & Lateral (Generic) [...] Glucose, POC 135 65 - 199 mg/dL [facility] Comment: Supplemental ranges: <140 mg/dL before meals <180 mg/dL all other times of the day Blood specimen (specimen) 11/22/2016 7:44 AM EDT 11/22/2016 7:44 AM EDT Roque Sanches MD POINT OF CARE TEST O RDERABLES Performing Organization Address [facility] Co de Phone Number [facility] [place] [address] * EKG 12 Lead (11/22/2016 7:12 AM EDT) Ventricular rate 74 BPM MUSE SYSTEM Atrial Rate 74 BPM MUSE SYSTEM P-R Interval 146 ms MUSE SYSTEM QRS Duration 92 ms MUSE SYSTEM Q-T Interval 382 ms MUSE SYSTEM QTC Calculated (Bezet) 424 ms MUSE SYSTEM Calculated P Turlock 34 degrees MUSE SYSTEM Calculated R Turlock 26 degrees MUSE SYSTEM Calculated T Turlock 27 degrees MUSE SYSTEM INTERPRETATION Normal sinus rhythm Normal ECG When compared with ECG of 21-NOV-2016 20:34, (unconfirmed) No significant change was found Confirmed by MD Anton, Asif (57) on 11/22/2016 10:51:21 AM MUSE SYSTEM 11/22/2016 7:12 AM EDT 11/22/2016 10:51 AM EDT Roque Sanches MD ECG ORDERABLES Performing Organization Address City/[facility]/ZIP Co de Phone Number MUSE SYSTEM * (ABNORMAL) Lipid Panel (11/22/2016 3:58 AM EDT) Cholesterol, Total 125 <=239 mg/dL [facility] Triglyceride 171 <=199 mg/dL [facility] HDL Cholesterol 39(L) >=40 mg/dL [facility] LDL Cholesterol 52 <=190 mg/dL [facility] Cholesterol/HDL Ratio 3.2 ratio [facility] Lipid Interpretation See Note [facility] Comment: Lipid management should be guided by a patient? s ASCVD risk, goals and preferences. ACC/AHA Guidelines recommend high intensity statin if clinical ASCVD or LDL greater than or equal to 190 mg/dL. http://circ.ahajournals.org/content/early/.cir.3237173161.21581.7a Adults aged 40-75 with LDL 70-189 mg/dL should have their 10 year ASCVD risk estimated with the ACC/AHA ASCVD risk laser set up operator http://tools.acc.org/GCJAW-Roca-Zpiabiara/ Statin should be discussed if risk greater [...] In Lab Roque Sanches MD CHEMISTRY ORDERABLES [facility] [place] [address] * Cardiac Enzymes (11/22/2016 3:58 AM EDT) Troponin-T <0.03 <=0.03 ng/mL [facility] Comment: 0.03 ng/mL: Represents the 99th percentile upper reference limit for normals. >0.03 ng/mL: Elevated cardiac troponin T level indicative of myocardial damage. Diagnosis of acute, evolving or recent MT requires a typical rise and gradual fall [...] consensus document of the Joint Society of Cardiology/[place] [employer] Cardiology Committee for the redefinition of myocardial infarction. ??Journal of the [place] College of [employer]iology 2000; 36: 959-969] Creatine Kinase 50 0 - 200 unit/L [facility] Blood specimen (specimen) Venous Draw / Unknown 11/22/2016 3:58 AM EDT 11/22/2016 4:13 AM EDT Narrative Resulting Agency Comment Spec In Lab Roque Sanches MD CHEMISTRY ORDERABLES Performing Organization Address City/State/[facility] Co de Phone Number [facility] [place] [id number] * Differential, Automated (11/22/2016 3:58 AM EDT) Neutrophil % 56.6 % [facility] Neutrophil Absolute 4.86 1.70 - 6.10 x10(3)/[facility] Lymph % 30.3 % [facility] Lymphocytes Abs 2.6 0.9 - 3.2 x10(3)/[facility] Monocyte % 7.7 % [facility] Monocyte Abs 0.7 0.3 - 0.9 x10(3)/[facility] Eos % 4.5 % [facility] Eosinophils Abs 0.4 0.0 - 0.4 x10(3)/[facility] Basophil % 0.6 % [facility] Baso Absolute 0.0 0.0 - 0.1 x10(3)/[facility] Immature Gran % 0.30 % [facility] Comment: Immature granulocytes(IG's)percentage and absolute count will include metamyelocytes, myelocytes, and promyelocytes. Blood smears from CBCs yielding IG's will be scanned manually for concordance. If this scan disagrees with the automated IG or if promyelocytes are noted, a manual differential will be performed. Immature Gran Absolute 0.03 0.00 - 0.04 x10(3)/mcL [facility] Blood specimen (specimen) 11/22/2016 3:58 AM EDT 11/22/2016 4:13 AM EDT Narrative Resulting Agency Comment Spec In Lab Roque Sanches MD HEMATOLOGY ORDERABLE S [facility] [place] [address] * (ABNORMAL) Hemogram (11/22/2016 3:58 AM EDT) White Blood Cell 8.6 4.0 - 9.5 x10(3)/mc L [facility] Red Blood Cell 4.80 4.58 - 5.54 x10(6)/mc L [facility] Hemoglobin 13.8 13.7 - 16.5 gm/dL [facility] Hematocrit 41.9 40.5 - 48.5 % [facility] Mean Cell Volume 87.3 82.9 - 93.1 fL [facility] Mean Cell Hemoglobin 28.8 27.5 - 32.1 pg [facility] Mean Cell Hemoglobin Concentration 32.9 32.0 - 35.7 gm/dL [facility] Platelet 219 145 - 357 x10(3)/mc L [facility] RDW Standard Deviation 44.7 36.0 - 45.0 fL [facility] RDW coefficient of variation 14.0(H) 11.4 - 13.8 % [facility] Mean Platelet Volume 10.9 7.6 - 12.9 fL [facility] NRBC% auto 0.0 % [facility] NRBC Absolute 0.000 0.000 - 0.000 x10(3)/mc L [facility] Blood specimen (specimen) 11/22/2016 3:58 AM EDT 11/22/2016 4:13 AM EDT Narrative Resulting Agency Comment Spec In Lab Roque Sanches MD HEMATOLOGY ORDERABLE S [facility] [place] [address] * (ABNORMAL) BMP w/fasting Glucose (11/22/2016 3:58 AM EDT) Glucose Fasting 127(H) 65 - 99 mg/dL [facility] Comment: ?Fasting* Glucose Interpretive Criteria [...] of Diabetes Mellitus, Position Statement from the [place] Diabetes Association. ??Diabetes Care, Volume 33, Supplement 1, Aug 2009 Blood Urea Nitrogen 10 10 - 20 mg/dL [facility] Creatinine 0.85 0.80 - 1.50 mg/dL [facility] Comment: Please note that the pediatric reference intervals supplied above were not validated at [facility]. Results from pediatric patients should be interpreted in conjunction to the patient's age, height and muscle mass. Sodium 142 135 - 145 mmol/L [facility] Potassium 3.3(L) 3.5 - 5.0 mmol/L [facility] Comment: Please note: ??Patients with WBC >100,000 may have falsely elevated Potassium levels. ??For accurate Potassium quantification in these patients send serum separator tube (gold top) for subsequent determinations. ??Contact the Clinical Chemistry Laboratory if there are any questions. Chloride 106 98 - 107 mmol/L [facility] Carbon Dioxide 21(L) 22 - 31 mmol/L [facility] Anion Gap 15 5 - 15 mmol/L [facility] Calcium 8.8 8.5 - 10.5 mg/dL [facility] Est Glomerular Filtration Rate >60 >=60 [facility] Comment: This estimated GFR [...] the following links into your internet browser. [email or web address] Blood specimen (specimen) 11/22/2016 3:58 AM EDT 11/22/2016 4:13 AM EDT Narrative Resulting Agency Comment Spec In Lab Roque Sanches MD CHEMISTRY ORDERABLES [facility] [place] [address] * (ABNORMAL) APTT (11/22/2016 3:58 AM EDT) [facility] Partial Thromboplastin Time 44(H) 25 - 35 sec [facility] Comment: The recommended therapeutic range for full dose, unfractionated heparin at [facility] is 80 ? 114 seconds. The use of the anti-Xa (heparin) level rather than the PTT is recommended for monitoring anticoagulation intensity in critically ill patients receiving unfractionated heparin by continuous IV infusion. Blood specimen (specimen) 11/22/2016 3:58 AM EDT 11/22/2016 4:13 AM EDT Narrative Resulting Agency Comment Spec In Lab Drew Pepe MD HEMATOLOGY ORDERABLE S Performing Organization Address [facility] Co de Phone Number [facility] [place] [address] * EKG 12 Lead (11/21/2016 8:34 PM EDT) Ventricular rate 72 BPM MUSE SYSTEM Atrial Rate 72 BPM MUSE SYSTEM P-R Interval 138 ms MUSE SYSTEM QRS Duration 86 ms MUSE SYSTEM Q-T Interval 382 ms MUSE SYSTEM QTC Calculated (Bezet) 418 ms MUSE SYSTEM Calculated P Turlock -2 degrees MUSE SYSTEM Calculated R Turlock 16 degrees MUSE SYSTEM Calculated T Turlock 16 degrees MUSE SYSTEM INTERPRETATION Normal sinus rhythm Normal ECG When compared with ECG of 30-JUL-2013 08:41, No significant change was found Confirmed by MD Anton, Asif (57) on 11/22/2016 10:49:32 AM MUSE SYSTEM 11/21/2016 8:34 PM EDT 11/22/2016 10:49 AM EDT Drew Pepe MD ECG ORDERABLES Performing Organization Address [facility] Co de Phone Number MUSE SYSTEM * Hemoglobin A1c (11/21/2016 8:32 PM EDT) Hemoglobin A1c 5.6 4.3 - 5.6 % [facility] Comment: Reference Range: 4.3 - [...] Mellitus, Diabetes Care 2013; 36: Suppl. 1, H20-08 Estimated Average Glucose 114 mg/dL [facility] Comment: eAG equivalents for HbA1c percentages: HbA1c(%) ?eAG(mg/dL) 6.0 ?126 6.5 ?140 7.0 ?154 7.5 ?169 8.0 ?183 8.5 ?197 9.0 ?212 9.5 ?226 10.0 ? 240 Limitations: The eAG calculation has not been validated on women, individuals below 18 years old and above 70 years old, and individuals with hemoglobinopathies. Additional resources are available on the ADA website: [email or web address]/DHMCadacalc Ashok PIMENTEL, Abdulkadir J, Jamie R, et al. ??Translating the A1C assay into estimated average glucose values. ??Diabetes Care 2008:31(8):2719-9635. Blood specimen (specimen) Venous Draw / Unknown 11/21/2016 8:32 PM EDT 11/22/2016 12:39 AM EDT Narrative Resulting Agency Comment Spec In Lab Drew Pepe MD CHEMISTRY ORDERABLES Performing Organization Address [facility] Co de Phone Number [facility] [place] [address] * TSH (11/21/2016 8:32 PM EDT) Thyroid Stimulating Hormone 2.29 0.27 - 4.20 mcIU/mL [facility] Blood specimen (specimen) Venous Draw / Unknown 11/21/2016 8:32 PM EDT 11/21/2016 8:40 PM EDT Narrative Resulting Agency Comment Spec In Lab Drew Pepe MD CHEMISTRY ORDERABLES Performing Organization Address [facility] Co de Phone Number [facility] [place] [address] * (ABNORMAL) Differential, Automated (11/21/2016 8:32 PM EDT) Neutrophil % 38.3 % [facility] Neutrophil Absolute 3.02 1.70 - 6.10 x10(3)/[facility] Lymph % 48.7 % [facility] Lymphocytes Abs 3.8(H) 0.9 - 3.2 x10(3)/[facility] Monocyte % 7.3 % [facility] Monocyte Abs 0.6 0.3 - 0.9 x10(3)/[facility] Eos % 4.4 % [facility] Eosinophils Abs 0.4 0.0 - 0.4 x10(3)/[facility] Basophil % 0.9 % [facility] Baso Absolute 0.1 0.0 - 0.1 x10(3)/[facility] Immature Gran % 0.40 % [facility] Comment: Immature granulocytes(IG's)percentage and absolute count will include metamyelocytes, myelocytes, and promyelocytes. Blood smears from CBCs yielding IG's will be scanned manually for concordance. If this scan disagrees with the automated IG or if promyelocytes are noted, a manual differential will be performed. Immature Gran Absolute 0.03 0.00 - 0.04 x10(3)/[facility] Blood specimen (specimen) 11/21/2016 8:32 PM EDT 11/21/2016 8:37 PM EDT Narrative Resulting Agency Comment Spec In Lab Drew Pepe MD HEMATOLOGY ORDERABLE S [facility] [place] [address] * Hemogram (11/21/2016 8:32 PM EDT) White Blood Cell 7.9 4.0 - 9.5 x10(3)/[facility] Red Blood Cell 4.64 4.58 - 5.54 x10(6)/[facility] Hemoglobin 13.9 13.7 - 16.5 gm/dL [facility] Hematocrit 40.6 40.5 - 48.5 % [facility] Mean Cell Volume 87.5 82.9 - 93.1 fL [facility] Mean Cell Hemoglobin 30.0 27.5 - 32.1 pg [facility] Mean Cell Hemoglobin Concentration 34.2 32.0 - 35.7 gm/dL [facility] Platelet 179 145 - 357 x10(3)/[facility] RDW Standard Deviation 44.3 36.0 - 45.0 fL [facility] RDW coefficient of variation 13.8 11.4 - 13.8 % [facility] Mean Platelet Volume 10.8 7.6 - 12.9 fL [facility] NRBC% auto 0.0 % [facility] NRBC Absolute 0.000 0.000 - 0.000 x10(3)/[facility] Blood specimen (specimen) 11/21/2016 8:32 PM EDT 11/21/2016 8:37 PM EDT Narrative Resulting Agency Comment Spec In Lab Drew Pepe MD HEMATOLOGY ORDERABLE S [facility] [place] [address] * Cardiac Enzymes (11/21/2016 8:32 PM EDT) Troponin-T <0.03 <=0.03 ng/mL [facility] Comment: 0.03 ng/mL: Represents the 99th percentile upper reference limit for normals. >0.03 ng/mL: Elevated cardiac troponin T level indicative of myocardial damage. Diagnosis of acute, evolving or recent MT requires a typical rise and gradual fall [...] consensus document of the Joint Society of Cardiology/[place] [employer] Committee for the redefinition of myocardial infarction. ??Journal of the [place] College of [employer]iology 2000; 36: 959-969] Creatine Kinase 64 0 - 200 unit/L [facility] Blood specimen (specimen) 11/21/2016 8:32 PM EDT 11/21/2016 8:37 PM EDT Narrative Resulting Agency Comment Spec In Lab Drew Pepe MD CHEMISTRY ORDERABLES Performing Organization Address [facility] Co de Phone Number [facility] [place] [address] * APTT (11/21/2016 8:32 PM EDT) Partial Thromboplastin Time 32 25 - 35 sec [facility] Comment: The recommended therapeutic range for full dose, unfractionated heparin at [facility] is 80 ? 114 seconds. The use of the anti-Xa (heparin) level rather than the PTT is recommended for monitoring anticoagulation intensity in critically ill patients receiving unfractionated heparin by continuous IV infusion. Blood specimen (specimen) 11/21/2016 8:32 PM EDT 11/21/2016 8:37 PM EDT Narrative Resulting Agency Comment Spec In Lab Drew Pepe MD HEMATOLOGY ORDERABLE S Performing Organization Address [facility] Co de Phone Number [facility] [place] [address] * Prothrombin Time (11/21/2016 8:32 PM EDT) Prothrombin Time 14.0 12.0 - 15.0 sec [facility] Comment: An INR <2.0 indicates [...] International Normalization Ratio 1.0 0.9 - 1.1 [facility] Blood specimen (specimen) 11/21/2016 8:32 PM EDT 11/21/2016 8:37 PM EDT Narrative Resulting Agency Comment Spec In Lab Drew Pepe MD HEMATOLOGY ORDERABLE S [facility] [place] [address] * Hepatic Function Panel (11/21/2016 8:32 PM EDT) Pathologist [facility] Protein, Total 6.8 6.1 - 8.0 gm/dL [facility] Albumin 4.0 3.2 - 5.2 gm/dL [facility] Aspartate Aminotransferase 15 0 - 39 unit/L [facility] Alanine Aminotransferase 9 0 - 55 unit/L [facility] Alkaline Phosphatase 43 40 - 120 unit/L [facility] Bilirubin, Total 0.2 0.2 - 1.3 mg/dL [facility] Bilirubin, Direct <0.1 0.0 - 0.3 mg/dL [facility] Blood specimen (specimen) 11/21/2016 8:32 PM EDT 11/21/2016 8:37 PM EDT Narrative Resulting Agency Comment Spec In Lab Drew Pepe MD CHEMISTRY ORDERABLES [facility] [place] [address] * (ABNORMAL) Basic Metabolic Panel (non-fasting) (11/21/2016 8:32 PM EDT) Glucose 84 65 - 199 mg/dL [facility] Comment:Diabetes: >=200 mg/d L plus symptoms Blood Urea Nitrogen 10 10 - 20 mg/dL [facility] Creatinine 0.95 0.80 - 1.50 mg/dL [facility] Comment: Please note that the pediatric reference intervals supplied above were not validated at [facility]. Results from pediatric patients should be interpreted in conjunction to the patient's age, height and muscle mass. Sodium 145 135 - 145 mmol/L [facility] Potassium 3.5 3.5 - 5.0 mmol/L [facility] Comment: Please note: ??Patients with WBC >100,000 may have falsely elevated Potassium levels. ??For accurate Potassium quantification in these patients send serum separator tube (gold top) for subsequent determinations. ??Contact the Clinical Chemistry Laboratory if there are any questions. Chloride 105 98 - 107 mmol/L [facility] Carbon Dioxide 19(L) 22 - 31 mmol/L [facility] Anion Gap 21(H) 5 - 15 mmol/L [facility] Calcium 9.2 8.5 - 10.5 mg/dL [facility] Est Glomerular Filtration Rate >60 >=60 [facility] Comment: This estimated GFR [...] the following links into your internet browser. [email or web address] Blood specimen (specimen) 11/21/2016 8:32 PM EDT 11/21/2016 8:37 PM EDT Narrative Resulting Agency Comment Spec In Lab Drew Pepe MD CHEMISTRY ORDERABLES [facility] [place] [address] * pro-Brain Natriuretic Peptide (11/21/2016 8:32 PM EDT) NT-proBNP 65 <=125 pg/mL [facility] Blood specimen (specimen) 11/21/2016 8:32 PM EDT 11/21/2016 8:37 PM EDT Narrative Resulting Agency Comment Spec In Lab Drew Pepe MD CHEMISTRY ORDERABLES [facility] [place] [address] * POCT Glucose (11/21/2016 8:12 PM EDT) Glucose, POC 80 65 - 199 mg/dL [facility] Comment: Supplemental ranges: <140 mg/dL before meals <180 mg/dL all other times of the day Blood specimen (specimen) 11/21/2016 8:12 PM EDT 11/21/2016 8:12 PM EDT Valentín Oreilly MD POINT OF CARE TEST ORDERABLES [facility] [place] [address] documented in this encounter Visit Diagnoses Not [...] 0814 (Given - Provider: Esha Chen RN)1811 ([facility] Hold - Provider: Admin Adt - Reason: [...] 0815 (Given - Provider: Esha Chen RN)1811 ([facility] Hold - Provider: Admin Adt - Reason: Transfer to a Procedural area)1940 ([facility] Unhold - Provider: Admin Adt) 0858 (Given - Provider: Venancio Bourgeois RN) losartan (COZAAR) tablet 12.5 mg 12.5 mg, Oral, DAILY, First dose on 11/22/16 at 0900, Until Discontinued, Routine 0807 (Given - Provider: Esha Chen RN) 0816 (Given - Provider: Esha Chen RN)1811 ([facility] Hold - Provider: Admin Adt - Reason: Transfer to a Procedural area)1940 ([facility] Unhold - Provider: Admin Adt) 0857 (Given [...] 0816 (Given - Provider: Esha Chen RN)1811 ([facility] Hold - Provider: Admin Adt - Reason: Transfer to a Procedural area)1940 ([facility] Unhold - Provider: Admin Adt)2107 (Given - Provider: Venice Huffman RN) 09 (Given - Provider: Venancio Bourgeois RN) pantoprazole (PROTONIX) tablet 40 mg 40 mg, Oral, DAILY, First dose on 11/22/16 at 0900, Until Discontinued, DO NOT CRUSH OR OPEN, Routine 0808 (Given - Provider: Esha Chen RN) 0816 (Given - Provider: Esha Chen RN)1811 ([facility] Hold - Provider: Admin Adt - Reason: Transfer to a Procedural area)1940 ([facility] Unhold - Provider: Admin Adt) 900 (Given - Provider: Venancio Bourgeois, RN) pramipexole (MIRAPEX) tablet 0.5 mg 0.5 mg, Oral, NIGHTLY, First dose on 11/22/16 at 0030, Until Discontinued, Routine 2058 (Given - Provider: Christy Medina, VERO) 1811 ([facility] Hold - Provider: Admin Adt - Reason: Transfer to a Procedural area)1940 ([facility] Unhold - Provider: Admin Adt)2107 (Given - [...] 08 (Given - Provider: Esha Chen RN)1811 ([facility] Hold - Provider: Admin Adt - Reason: Transfer to a Procedural area)1940 ([facility] Unhold - Provider: Admin Adt)2107 (Given - [...] See comment - Comment: IV flds infusing)1811 ([facility] Hold - Provider: Admin Adt - Reason: Transfer to a Procedural area)1940 ([facility] Unhold - Provider: Admin Adt)2111 (Given - [...] (Given - Provider: Esha Chen RN) 1811 ([facility] Hold - Provider: Admin Adt - Reason: Transfer to a Procedural area)1940 ([facility] Unhold - Provider: Admin Adt) heparin (porcine) [...] for discomfort with PIV insertion, Routine 1811 ([facility] Hold - Provider: Admin Adt - Reason: Transfer to a Procedural area)1940 ([facility] Unhold - Provider: Admin Adt) midazolam (PF) [...] last 24 to 72 hours., Routine 1811 ([facility] Hold - Provider: Admin Adt - Reason: Transfer to a Procedural area)1940 ([facility] Unhold - Provider: Admin Adt) nitroGLYcerin 100 [...] (Given - Provider: Esha Chen RN) 1811 ([facility] Hold - Provider: Admin Adt - Reason: Transfer to a Procedural area)1940 ([facility] Unhold - Provider: Admin Adt) sodium chloride 0.9 % flush 5-20 mL 5-20 mL, Intravenous, EVERY 1 MIN PRN, Starting on 11/22/16 at 0013, Until Tu11/25/16 at 1305, flush, Flush pertains to all indwelling lines. Flush per protocol found in the job aid using the link provided on this medication record., Routine 1811 ([facility] Hold - Provider: Admin Adt - Reason: Transfer to a Procedural area)1940 ([facility] Unhold - Provider: Admin Adt) sodium chloride 0.9 % flush 5-20 mL 5-20 mL, Intravenous, EVERY 1 MIN PRN, Starting on Thu11/21/16 at 2010, Until Tu11/25/16 at 1305, flush, Flush pertains to all indwelling lines. Flush per protocol found in the job aid using the link provided on this medication record., Routine 1811 ([facility] Hold - Provider: Admin Adt - Reason: Transfer to a Procedural area)1940 ([facility] Unhold - Provider: Admin Adt) sodium chloride [...] Routine documented in this encounter Care Teams Carry In Worker Relationship Specialty Start Date End Date Coni Lim MD [address] [place] [address] PCP - General 07/16/10 documented as of this encounter
--- OUTSIDE RECORDS SUMMARY | 2024-08-05 17:22 | XMS_ITS | Encounter Summary ---
Author Organization [facility] [place] [address] Care Team Providers Care Pulper Name Role Phone Coni Lim MD Primary Care Provider [phone] Encounter Details Date Type Department Care Team (Late st Contact Info) Description 07/27/2014 Orders Only Cardiology at [address] [phone] Oneil Newsome RN Research exam (Primary Dx) [...] trial documented in this encounter Care Teams Pulper Relationship Specialty Start Date End Date Coni Lim MD [address] [place] [address] PCP - General 07/16/10 documented as of this encounter
--- OUTSIDE RECORDS SUMMARY | 2024-08-05 17:22 | XMS_ITS | Encounter Summary ---
Author Organization [facility] Address [facility] [place] [address] Care Team Providers Care Truck Driver Flatbed Name Role Phone Coin Lim MD Primary Care Provider [phone] Encounter Details Date Type Department Care Team (Late st Contact Info) Description 02/14/2014 Telephone Cardiology [facility] [place] [phone] Eros Ballard MD [facility] [place] [address] Social History Tobacco Use Types Packs/Day Years [...] started on heparin drip and transferred to [facility]. documented in this encounter Plan of Treatment Not on file documented as of this encounter Visit Diagnoses Not on filedocumented in this encounter Care Teams Truck Driver Flatbed Relationship Specialty Start Date End Date Coni Lim MD [address] [place] [address] PCP - General 07/16/10 documented as of this encounter
--- OUTSIDE RECORDS SUMMARY | 2024-08-05 17:22 | XMS_ITS | Encounter Summary ---
Author Organization [facility] [place] [address] Care Team Providers Care Scale Clerk Name Role Phone Coni Lim MD Primary Care Provider [phone] Encounter Details Date Type Department Care Team (Late st Contact Info) Description 11/17/2013 Abstract Cardiology at [address] [phone] Anastasiya Paulino, RN Social History Tobacco Use [...] on filedocumented in this encounter Care Teams Scale Clerk Relationship Specialty Start Date End Date Coni Lim MD [address] [place] [address] PCP - General 07/16/10 documented as of this encounter
--- OUTSIDE RECORDS SUMMARY | 2024-08-05 17:22 | XMS_ITS | Encounter Summary ---
Author Organization [facility] Address [facility] [place] [address] Care Team Providers Care Cutter Machine Tender Name Role Phone Coni Lim MD Primary Care Provider [phone] Encounter Details Date Type Department Care Team (Latest Contact Info) Description 07/30/2013 5:12 AM EST - 07/30/2013 11:59 PM [facility] Hospital Encounter ZLEB 4A [facility] [place] [address] Edy Trimble MD [facility] [place] [address] Discharge Disposition: Home Social History Tobacco Use [...] Kinase 54 0 - 200 unit/L [employer] CK-MB 1.8 0.0 - 5.0 mcg/L [employer] [facility] CKMB Index 3.3 0.0 - 5.0 mcg/u [employer] Blood specimen (specimen) 07/30/2013 6:00 AM EST 07/30/2013 6:32 AM EST Narrative Resulting Agency Comment Spec In Lab Edy Damon MD CHEMISTRY ORDERABLES Performing Organization Address City/State/[facility] Co pr Phone Number [facility] documented in this encounter Visit Diagnoses Not on filedocumented in this encounter Care Teams Cutter Machine Tender Relationship Specialty Start Date End Date Coni Lim MD [address] [place] [address] PCP - General 07/16/10 documented as of this encounter
--- OUTSIDE RECORDS SUMMARY | 2024-08-05 17:22 | XMS_ITS | Encounter Summary ---
Author Organization [facility] [place] [address] Care Team Providers Care Agricultural Education Instructor Name Role Phone Coni Lim MD Primary Care Provider [phone] Encounter Details Date Type Department Care Team (Late st Contact Info) Description 08/02/2015 Telephone Cardiology at [address] [phone] Destin Patel, RN Social History Tobacco Use [...] about his recent admission for stroke at [facility], for which he still has some [...] on filedocumented in this encounter Care Teams Agricultural Education Instructor Relationship Specialty Start Date End Date Coni Lim MD [address] [place] [address] PCP - General 07/16/10 documented as of this encounter
--- OUTSIDE RECORDS SUMMARY | 2024-08-05 17:22 | XMS_ITS | Encounter Summary ---
Author Organization [facility] [place] [address] Care Team Providers Care Rail Layer Name Role Phone Sarita Chew MD Primary Care Provider [phone] Reason for Referral * (Routine) - Closed by system - Referral Specialty Diagnoses / Procedures Referred By Contac t Referred To Contact Cardiac Rehabilitation Diagnoses S/P coronary artery stent placement Edy Trimble MD [facility] [place] [address] Referral ID Status Reason Start Date Expiration Date Visits Requested Visits Authorized [id number] Closed by system - Referral Evaluate and Treat 07/30/2013 01/26/2014 1 1 Encounter Details Date Type Department Care Team (Late st Contact Info) Description 07/29/2013 5:57 AM EST - 07/30/2013 10:58 AM EST Hospital Encounter [place] [id number] Taylor Dickinson PA [facility] [place] [address] Supa Lopez MD [facility] [place] [address] Agusto Ball II, MD [facility] [place] [address] Edy Trimble MD [facility] [place] [address] ASCVD (arteriosclerotic cardiovascular disease); S/P coronary artery [...] appointments: During 8am-5pm Thursday through Thursday call [phone] to speak with a nurse in the cardiology clinic All other times call [phone] and ask to speak to the die engraving supervisor it operations specialist. Return to work: One week Driving: No driving for 48 hours after catheterization. Follow up Appointments: PCP Call for appointment in 1-2 weeks. 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 Please call for appointment Home oxygen therapy: N/A Arrangements for VNA/home care: none * Attachments The following attachments cannot be sent through Care Everywhere. * CARDIAC REHABILITATION: AFTER YOUR VISIT (STATELESS) * CHEST PAIN (ANGINA): AFTER YOUR VISIT (STATELESS) * PERCUTANEOUS CORONARY INTERVENTION: WHAT TO EXPECT AT HOME (STATELESS) documented in this encounter Medications at Time [...] mg/dL MISCELLANEOUS LAB REQUEST Component Value Range [facility] Lab Result Request received in lab. CK-MB [...] mg/dL MISCELLANEOUS LAB REQUEST Component Value Range [facility] Lab Result Request received in lab. CK-MB [...] the Treatment of Subjects with de abby Solomon Coronary Artery Lesions PI: Edy Trimble MD Pager #:[phone] Research Coordinators: GLADYS Rosenbaum, BA, OBJECTS CONSERVATOR Pager #:[phone] Oneil Newsome RN Pager #: [phone] Purpose: The pivotal trial to support the [place] pre-market approval (PMA) of Absorb BVS. ABSORB III will evaluate the safety and effectiveness of the Absorb BVS System compared to the XIENCE in the treatment of subjects, including those with diabetes mellitus, with ischemic heart disease caused by up to two denovo council coronary artery lesions in separate epicardial vessels. [...] through 5 years post procedure. Study ID#: [id number], JAM NOTE: Patient must remain blinded to their assigned study device!! * Curt Silva - 07/29/2013 7:25 AM EST ABSORB III RANDOMIZED CONTROLLED TRIAL A Clinical Evaluation of Absorb??? BVS, the Everolimus Eluting Bioresorbable Vascular Scaffold in the Treatment of Subjects with de abby Solomon Coronary Artery Lesions PI: Edy Trimble MD Pager #:[phone] Research Coordinators: GLADYS Rosenbaum, BA, OBJECTS CONSERVATOR Pager #:[phone] Oneil Newsome RN Pager #: [phone] Purpose: The pivotal trial to support the [place] pre-market approval (PMA) of Absorb BVS. ABSORB III will evaluate the safety and effectiveness of the Absorb BVS System compared to the XIENCE in the treatment of subjects, including those with diabetes mellitus, with ischemic heart disease caused by up to two denovo council coronary artery lesions in separate epicardial vessels. [...] - 07/29/2013 11:16 AM EST Romeo Coe [id number] 07/29/2013 48 y.o. Admission History and Physical [...] and clopidogrel per protocol. Randell Giles MD Binder And Wrapper Packer Pager# [phone] 07/29/2013 Cardiology Attending Note: Patient seen and [...] 08/01/2013 8:56 PM ESTAssociated Order(s): SCAN DOC: DIGITAL MARKETING LEAD documented in this encounter Miscellaneous Notes * [...] to the outpatient cardiac rehabilitation program at [facility] was discussed. He participated briefly in the program at [facility] last year ( closest to him) but did not have a good experience so stopped. A referral will be sent to [facility] the program and the patient will be [...] with 3.5 X 18 mm JACINDA - [facility] 2009 post abnormal nuc stress [...] appointments: During 8am-5pm Thursday through Thursday call [phone] to speak with a nurse in the cardiology clinic All other times call [phone] and ask to speak to the die engraving supervisor it operations specialist. Return to work: One week Driving: No driving for 48 hours after catheterization. Follow up Appointments: PCP Call for appointment in 1-2 weeks. 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 Please call for appointment Home oxygen therapy: N/A Arrangements for VNA/home care: none General Instructions None Future Appointments and Orders Future Orders Please Complete By Expires Referral to Cardiac Rehab [[id number] Custom] Process Instructions: If no progress note charted, please enter Clinical details in comments. Scheduling Instructions: Comments: Cardiac rehab @ [facility] Questions: Responses: Reason for referral angina, stent Provider Contact Information: Dr. Atilio Giles Section of Cardiology [facility] [phone] Discharge References/Attachments: Discharge References/Attachments None Signed: Turner [...] Procedure Name Priority Date/Time Associated Diagnosis Comments DIGITAL MARKETING LEAD SCAN 08/01/2013 8:56 PM EST EKG 12-LEAD [...] Routine 07/29/2013 4:53 PM EST CARDIAC ENZYMES ([facility]) STAT 07/29/2013 12:53 PM EST POCT GLUCOSE Routine 07/29/2013 12:36 PM EST EKG 12-LEAD Routine 07/29/2013 11:26 AM EST ASCVD (arteriosclerotic cardiovascular disease) CARDIAC ENZYMES ([facility]) Routine 07/29/2013 10:55 AM EST MISCELLANEOUS LAB REQUEST Routine 07/29/2013 9:24 AM EST EKG 12-LEAD Routine 07/29/2013 7:50 AM EST ASCVD (arteriosclerotic cardiovascular disease) POCT GLUCOSE Routine 07/29/2013 7:46 AM EST ELECTROLYTES PANEL STAT 07/29/2013 6: 06 AM EST ASCVD (arteriosclerotic cardiovascular disease) documented in this encounter Results * SCAN DOC: DIGITAL MARKETING LEAD (08/01/2013 8:56 PM EST) Anatomical Region Laterality [...] (Bezet) 405 ms MUSE SYSTEM Calculated P Prosperity 7 degrees MUSE SYSTEM Calculated R Prosperity 24 degrees MUSE SYSTEM Calculated T Prosperity 20 degrees MUSE SYSTEM INTERPRETATION Normal sinus rhythm Normal ECG When compared with ECG of 29-JUL-2013 11:26, No significant change was found Confirmed by MD JACKSON, [place] ([id number]) on 07/30/2013 11:46:49 AM MUSE SYSTEM 07/30/2013 [...] OF CARE TEST ORDERABLES Performing Organization Address [facility] Co de Phone Number [...] MD HEMATOLOGY ORDERABLE S Performing Organization Address [facility] Co de Phone Number [...] MD HEMATOLOGY ORDERABLE S Performing Organization Address [facility] de Phone Number TANG NORTON * (ABNORMAL) Lipid panel (fasting) (07/30/2013 6:30 AM EST) Cholesterol, Total 154 <=199 mg/dL CERNER MILLENNIUM Comment: Recommendations of the NCEP Adult Treatment Panel for the following risk cutoff thresholds for the [place] population: Desirable: <200 mg/dL Borderline High: 200-239 mg/dL High: > or = 240 mg/dL Triglyceride 156(H) <=149 mg/dL CERNER MILLENNIUM Comment: Reference Range: Normal triglycerides: ??<150 mg/dL Borderline high: ??150-199 mg/dL High: ??200-499 mg/dL Very high: ??>dc=903 mg/dL RACHEL 2001; 285(19):8920-4281 HDL Cholesterol 36(L) >=40 mg/dL CER NER MILLENNIUM Comment: Reference range: ??Low HDL: ?? < 40 mg/dL ??Normal: ?40-60 mg/dL ??Desirable: > 60 mg/dL RACHEL 2001; 285(19):6801-1725 LDL Cholesterol 87 <=99 mg/dL CER NER MILLENNIUM Comment: Reference range: ?? Optimal: ?<100 mg/dL ?? Near Optimal/Above Optimal: ?? 100-129 mg/dL ?? Borderline high: ?130-159 mg/dL ?? High: ? 160-189 mg/dL ?? Very high: ?>om=638 mg/dL RACHEL 2001: 285(19):6626-9490 Cholesterol/HDL Ratio 4.3 ratio CERNER MILLENNIUM Comment: A Cholesterol to HDL ratio below 4:1 is desirable. ??Studies suggest that increased CAD risk occurs at ratios above 5 for females and above 6 for men. ? [place] Heart Association ??(http://www.americanheart.org) ? Pallavi Int Med, [...] of Diabetes Mellitus, Position Statement from the [place] Diabetes Association. ??Diabetes Care, Volume 33, Supplement 1, Aug 2009 Blood Urea Nitrogen 11 10 - 20 mg/dL CERNER MILLENNIUM Creatinine 0.62(L) 0.80 - 1.50 mg/dL CERNER MILLENNIUM Comment: Please note that the pediatric reference intervals supplied above were not validated at [facility]. Results from pediatric patients [...] In Lab Edy Damon MD CHEMISTRY ORDERABLES [facility] * Cardiac Enzymes (07/30/2013 6:30 AM EST) Troponin-T <0.03 <=0.03 ng/mL VERAANNABEL Dympol Comment: 0.03 ng/mL: Represents the 99th percentile upper reference limit for normals. >0.03 ng/mL: Elevated cardiac troponin T level indicative of myocardial damage. Diagnosis of acute, evolving or recent ID requires a typical rise and gradual fall [...] consensus document of the Joint Society of Cardiology/[place] College of Cardiology Committee for the redefinition of myocardial infarction. ??Journal of the [place] College of Cardiology 2000; 36: 959-969] Creatine Kinase 60 0 - 200 unit/L TANG Discovery Machine[employer] Blood specimen (specimen) 07/30/2013 6:30 AM EST 07/30/2013 6:44 AM EST Narrative Resulting Agency Comment Spec In Lab Edy Damon MD CHEMISTRY ORDERABLES Performing Organization Address [facility] Phone Number [facility] * Miscellaneous Lab request (07/30/2013 6:00 AM EST) Label Request received in lab. [facility] Blood specimen (specimen) 07/30/2013 6:00 AM EST 07/30/2013 6:31 AM EST Edy Damon MD LAB SEND OUT ORDERAB LES Performing Organization Address [facility] Phone Number [facility] * POCT Glucose (07/30/2013 4:18 AM EST) Glucose, POC 145 60 - 199 mg/dL [facility] Comment: Supplemental ranges: <110 mg/dL before meals <200 mg/dL all other times of the day Blood specimen (specimen) 07/30/2013 4:18 AM EST 07/30/2013 4:18 AM EST Supa Lopez MD POINT OF CARE TEST ORDERABLES Performing Organization Address [facility] Phone Number [facility] * POCT Glucose (07/30/2013 12:17 AM EST) Glucose, POC 129 60 - 199 mg/dL [facility] Comment: Supplemental ranges: <110 mg/dL before meals <200 mg/dL all other times of the day Blood specimen (specimen) 07/30/2013 12:17 AM EST 07/30/2013 12:17 AM EST Supa Lopez MD POINT OF CARE TEST ORDERABLES Performing Organization Address [facility] Phone Number [facility] * POCT Glucose (07/29/2013 8:02 PM EST) Glucose, POC 127 60 - 199 mg/dL [facility] Comment: Supplemental ranges: <110 mg/dL before meals <200 mg/dL all other times of the day Blood specimen (specimen) 07/29/2013 8:02 PM EST 07/29/2013 8:02 PM EST Supa Lopez MD POINT OF CARE TEST ORDERABLES Performing Organization Address [facility] Phone Number [facility] * Miscellaneous Lab request (07/29/2013 6:05 PM EST) Label Request received in lab. [facility] Blood specimen (specimen) 07/29/2013 6:05 PM EST 07/29/2013 6:17 PM EST Edy Damon MD LAB SEND OUT ORDERAB LES Performing Organization Address [facility] Phone Number [facility] * POCT Glucose (07/29/2013 4:53 PM EST) Pathologist [facility] Glucose, POC 138 60 - 199 mg/dL [facility] Comment: Supplemental ranges: <110 mg/dL before meals <200 mg/dL all other times of the day Blood specimen (specimen) 07/29/2013 4:53 PM EST 07/29/2013 4:53 PM EST Supa Lopez MD POINT OF CARE TEST ORDERABLES Performing Organization Address [facility] Phone Number [facility] * Cardiac Enzymes (07/29/2013 12:53 PM EST) [facility] Troponin-T <0.03 <=0.03 ng/mL [facility] Comment: 0.03 ng/mL: Represents the 99th percentile upper reference limit for normals. >0.03 ng/mL: Elevated cardiac troponin T level indicative of myocardial damage. Diagnosis of acute, evolving or recent ID requires a typical rise and gradual fall [...] consensus document of the Joint Society of Cardiology/[place] College of Cardiology Committee for the redefinition of myocardial infarction. ??Journal of the [place] College of Cardiology 2000; 36: 959-969] Creatine Kinase 55 0 - 200 unit/L [facility] Blood specimen (specimen) 07/29/2013 12:53 PM EST 07/29/2013 12:59 PM EST Narrative Resulting Agency Comment Spec In Lab Edy Damon MD CHEMISTRY ORDERABLES Performing Organization Address City/[facility]/ZIP Co de Phone Number [facility] * POCT Glucose (07/29/2013 12:36 PM EST) Glucose, POC 142 60 - 199 mg/dL [facility] Comment: Supplemental ranges: <110 mg/dL before meals <200 mg/dL all other times of the day Blood specimen (specimen) 07/29/2013 12:36 PM EST 07/29/2013 12:36 PM EST Supa Lopez MD POINT OF CARE TEST ORDERABLES Performing Organization Address [facility] Co de Phone Number [facility] * EKG 12 Lead (07/29/2013 11:26 AM EST) Ventricular rate 67 BPM MUSE SYSTEM Atrial Rate 67 BPM MUSE SYSTEM P-R Interval 164 ms MUSE SYSTEM QRS Duration 90 ms MUSE SYSTEM Q-T Interval 394 ms MUSE SYSTEM QTC Calculated (Bezet) 416 ms MUSE SYSTEM Calculated P Prosperity 48 degrees MUSE SYSTEM Calculated R Prosperity 33 degrees MUSE SYSTEM Calculated T Prosperity 32 degrees MUSE SYSTEM INTERPRETATION Normal sinus [...] damage. Diagnosis of acute, evolving or recent ID requires a typical rise and gradual fall [...] consensus document of the Joint Society of Cardiology/[place] College of Cardiology Committee for the redefinition of myocardial infarction. ??Journal of the [place] College of Cardiology 2000; 36: 959-969] Creatine Kinase 50 0 - 200 unit/L TANG NORTON Blood specimen (specimen) 07/29/2013 10:55 AM EST 07/29/2013 11:08 AM EST Narrative Resulting Agency Comment Spec In Lab Edy Damon MD CHEMISTRY ORDERABLES Performing Organization Address [facility] Co de Phone Number [...] (Bezet) 407 ms MUSE SYSTEM Calculated P Prosperity 3 degrees MUSE SYSTEM Calculated R Prosperity 42 degrees MUSE SYSTEM Calculated T Prosperity 36 degrees MUSE SYSTEM INTERPRETATION Normal sinus rhythm Normal ECG When compared with ECG of 15-JUN-2012 12:40, No significant change was found Confirmed by MD MARKS ALAN ([id number]) on 07/30/2013 7:24:11 AM MUSE SYSTEM 07/29/2013 7:50 AM EST 07/30/2013 7:24 AM EST Edy Damon MD ECG ORDERABLES MUSE SYSTEM * POCT Glucose (07/29/2013 7:46 AM EST) Pathologist [facility] Glucose, POC 160 60 - [...] Coronary atherosclerosis of unspecified type of vessel, council or graft ASCVD (arteriosclerotic cardiovascular disease) Unspecified [...] Thu07/29/13 at 2100, Until Discontinued, Routine 1342 ([facility] Hold - Provider: Admin Adt - Reason: Transfer to a Procedural area)1343 ([facility] Unhold - Provider: Admin Adt)212 (Given - Provider: Mahesh Hurt RN) diaZEPam (VALIUM) tablet 5 mg (COMPLETED) 5 mg, Oral, ONCE, 1 dose, On Thu07/29/13 at 0800, Cath (Day of Procedure), Routine 0838 (Given - Provider: Kemi Mullen, VERO) DILTiazem (DILACOR XR) XR capsule 240 mg (CANCELED) 240 mg, Oral, DAILY, First dose on Thu07/30/13 at 0900, Until Discontinued, Routine 1342 ([facility] Hold - Provider: Admin Adt - Reason: Transfer to a Procedural area)1343 ([facility] Unhold - Provider: Admin Adt) [...] Thu07/29/13 at 2100, Until Discontinued, Routine 1342 ([facility] Hold - Provider: Admin Adt - Reason: Transfer to a Procedural area)1343 ([facility] Unhold - Provider: Admin Adt)212 (Given - Provider: Mahesh Hurt RN) 0826 (Given - Provider: Reina Randall RN) furosemide (LASIX) tablet 20 mg (CANCELED) 20 mg, Oral, DAILY, First dose on Thu07/29/13 at 1245, Until Discontinued, Routine 1245 (Not Given - Provider: Jessica Barr RN - Reason: Patient/family refused)1342 ([facility] Hold - Provider: Admin Adt - Reason: Transfer to a Procedural area)1343 ([facility] Unhold - Provider: Admin Adt) 0826 (Given - Provider: Reina Randall RN) gabapentin (NEURONTIN) capsule 300 mg (CANCELED) 300 mg, Oral, 3 TIMES DAILY, First dose on Thu07/29/13 at 1500, Until Discontinued, Routine 1342 ([facility] Hold - Provider: Admin Adt [...] RN - Reason: Order parameters not met)1342 ([facility] Hold - Provider: Admin Adt [...] - Reason: Transfer to a Procedural area)1343 ([facility] Unhold - Provider: Admin Adt) 0638 (Given - Provider: Mahesh Hurt RN) metoprolol tartrate (LOPRESSOR) tablet 50 mg (CANCELED) 50 mg, Oral, 2 TIMES DAILY, First dose on Thu07/29/13 at 1245, Until Discontinued, Routine 1245 (Not Given - Provider: Jessica Barr RN - Reason: See comment - Comment: pt took in a.m.)1342 ([facility] Hold - Provider: Admin Adt - Reason: Transfer to a Procedural area)1343 ([facility] Unhold - Provider: Admin Adt)2122 (Given - Provider: Mahesh Hurt RN) 0826 (Given - Provider: Reina Randall RN) pantoprazole (PROTONIX) tablet 20 mg 20 mg, Oral, DAILY, First dose on Thu07/30/13 at 0900, Until Discontinued, Restricted to patients on clopidpgrel (PLAVIX) who require a proton pump inhibitor 1342 ([facility] Hold - Provider: Admin Adt - Reason: Transfer to a Procedural area)1343 ([facility] Unhold - Provider: Admin Adt) 0826 (Given - Provider: Reina Randall RN) rosuvastatin (CRESTOR) tablet 10 mg (CANCELED) 10 mg, Oral, EVERY EVENING, First dose on Thu07/29/13 at 1700, Until Discontinued, Routine 1342 ([facility] Hold - Provider: Admin Adt - Reason: Transfer to a Procedural area)1343 ([facility] Unhold - Provider: Admin Adt)1700 [...] in sodium chloride 0.9% 90 mL infusion (HAND TURNER) (CANCELED) CONTINUOUS PRN, Starting on Thu07/29/13 at [...] Cath (Intra-Procedure), Routine 1004 (Given - Provider: aSman Damon MD)1016 (Given - Provider: Edy Damon MD)1049 (Given - Provider: Edy Damon MD) documented in this encounter Care Teams Rail Layer Relationship Specialty Start Date End Date Sarita Chew MD [address] [place] [address] PCP - General 07/16/10 documented as of this encounter
--- OUTSIDE RECORDS SUMMARY | 2024-08-05 17:22 | XMS_ITS | Encounter Summary ---
Author Organization [facility] [place] [address] Care Team Providers Care Rodbuster Name Role Phone Coni Lim MD Primary Care Provider [phone] Encounter Details Date Type Department Care Team (Late st Contact Info) Description 07/26/2015 Telephone Cardiology at [address] [phone] Destin Patel, RN Social History Tobacco Use [...] Kim Horvath is aware as the blinded narcotics investigator. I will follow up with him should it be necessary. documented in this encounter Plan of Treatment Not on file documented as of this encounter Visit Diagnoses Not on filedocumented in this encounter Care Teams Rodbuster Relationship Specialty Start Date End Date Coni Lim MD [address] [place] [address] PCP - General 07/16/10 documented as of this encounter
--- OUTSIDE RECORDS SUMMARY | 2024-08-05 17:22 | XMS_ITS | Encounter Summary ---
Author Organization [facility] Address [facility] [place] [address] Care Team Providers Care Co Founder And Chief Strategy Officer Name Role Phone Coni Lim MD Primary Care Provider [phone] Reason for Visit * Reason Onset Date Comments Medication Refill 08/10/2013 Encounter Details Date Type Department Care Team (Late st Contact Info) Description 08/10/2013 Refill Cardiology at [address] [phone] Turner Tan MD [facility] [address] Medication Refill Social History Tobacco Use Types [...] on filedocumented in this encounter Care Teams Co Founder And Chief Strategy Officer Relationship Specialty Start Date End Date Coni Lim MD [address] [place] [address] PCP - General 07/16/10 documented as of this encounter
--- OUTSIDE RECORDS SUMMARY | 2024-08-05 17:22 | XMS_ITS | Encounter Summary ---
Author Organization [facility] [place] [place] [address] Care Team Providers Care Shirt Bander Name Role Phone Coni Lim MD Primary Care Provider [phone] Encounter Details Date Type Department Care Team (Late st Contact Info) Description 07/25/2015 Telephone Cardiology at [address] [phone] Yessy Pugh Social History Tobacco Use Types [...] a week. I havemade Aldair Patel, the breastfeeding program coordinator aware. documented in this encounter Plan of Treatment Not on file documented as of this encounter Visit Diagnoses Not on filedocumented in this encounter Care Teams Shirt Bander Relationship Specialty Start Date End Date Coni Lim MD [address] [place] [address] PCP - General 07/16/10 documented as of this encounter
--- OUTSIDE RECORDS SUMMARY | 2024-08-05 17:22 | XMS_ITS | Encounter Summary ---
Author Organization [facility] Address [facility] [place] [address] Care Team Providers Care Dressmaker Garment Fitter Name Role Phone Sarita Lim MD Primary Care Provider [phone] Encounter Details Date Type Department Care Team (Late st Contact Info) Description 07/29/2013 8:00 AM EST - 07/29/2013 9:00 AM EST [place] [id number] Edy Trimble MD [facility] [place] [address] CARDIAC CATHETERIZATION Social History Tobacco Use Types [...] appointments: During 8am-5pm Thursday through Thursday call [phone] to speak with a nurse in the cardiology clinic All other times call [phone] and ask to speak to the pooling operator director alumni relations. Return to work: One week Driving: No driving for 48 hours after catheterization. Follow up Appointments: PCP Call for appointment in 1-2 weeks. Tile Sprayer You should be seen in 3-4 weeks for follow up. Please call for appointment Home oxygen therapy: N/A Arrangements for VNA/home care: none * Attachments The following attachments cannot be sent through Care Everywhere. * CARDIAC REHABILITATION: AFTER YOUR VISIT (YORUBA) * CHEST PAIN (ANGINA): AFTER YOUR VISIT (YORUBA) * PERCUTANEOUS CORONARY INTERVENTION: WHAT TO EXPECT AT HOME (YORUBA) documented in this encounter Medications at Time [...] the Treatment of Subjects with de abby [place] Coronary Artery Lesions PI: Edy Trimble MD Pager #:[phone] Research Coordinators: GLADYS Rosenbaum, BA, SUPERVISOR STITCHING DEPARTMENT Pager #:[phone] Oneil Newsome RN Pager #: [phone] Purpose: The pivotal trial to support the [place] pre-market approval (PMA) of Absorb BVS. ABSORB III will evaluate the safety and effectiveness of the Absorb BVS System compared to the XIENCE in the treatment of subjects, including those with diabetes mellitus, with ischemic heart disease caused by up to two denovo telida coronary artery lesions in separate epicardial vessels. [...] through 5 years post procedure. Study ID#: [id number], JAM NOTE: Patient must remain blinded to their assigned study device!! * Curt Silva - 07/29/2013 7:25 AM EST ABSORB III RANDOMIZED CONTROLLED TRIAL A Clinical Evaluation of Absorb??? BVS, the Everolimus Eluting Bioresorbable Vascular Scaffold in the Treatment of Subjects with de abby [place] Coronary Artery Lesions PI: Edy Trimble MD Pager #:[phone] Research Coordinators: Curt Silva, BS, BA, SUPERVISOR STITCHING DEPARTMENT Pager #:[phone] Oneil Newsome RN Pager #: [phone] Purpose: The pivotal trial to support the [place] pre-market approval (PMA) of Absorb BVS. ABSORB III will evaluate the safety and effectiveness of the Absorb BVS System compared to the XIENCE in the treatment of subjects, including those with diabetes mellitus, with ischemic heart disease caused by up to two denovo telida coronary artery lesions in separate epicardial vessels. [...] - 07/29/2013 11:16 AM EST Romeo Coe [id number] 07/29/2013 48 y.o. Admission History and Physical [...] and clopidogrel per protocol. Randell Giles MD Drill Rig Operator Pager# [phone] 07/29/2013 Cardiology Attending Note: Patient seen and [...] 08/01/2013 8:56 PM ESTAssociated Order(s): SCAN DOC: CIRCULATION CLERK documented in this encounter Miscellaneous Notes * Consult Note - Zunilda Fletcher RN - 07/29/2013 3:34 PM EST Rmoeo Coe was seen today by Cardiac [...] to the outpatient cardiac rehabilitation program at [place] was discussed. He participated briefly in the program at [facility] last year ( closest to him) but did not have a good experience so stopped. A referral will be sent to [facility] the program and the patient will be [...] appointments: During 8am-5pm Thursday through Thursday call [phone] to speak with a nurse in the cardiology clinic All other times call [phone] and ask to speak to the pooling operator director alumni relations. Return to work: One week Driving: No driving for 48 hours after catheterization. Follow up Appointments: PCP Call for appointment in 1-2 weeks. Tile Sprayer You should be seen in 3-4 weeks for follow up. Please call for appointment Home oxygen therapy: N/A Arrangements for VNA/home care: none General Instructions None Future Appointments and Orders Future Orders Please Complete By Expires Referral to Cardiac Rehab [[id number] Custom] Process Instructions: If no progress note charted, please enter Clinical details in comments. Scheduling Instructions: Comments: Cardiac rehab @ [place] Questions: Responses: Reason for referral angina, stent Provider Contact Information: Dr. Atilio Giles Section of Cardiology [facility] [phone] Discharge References/Attachments: Discharge References/Attachments None Signed: Turner [...] Procedure Name Priority Date/Time Associated Diagnosis Comments CIRCULATION CLERK SCAN 08/01/2013 8:56 PM EST EKG 12-LEAD [...] Routine 07/29/2013 4:53 PM EST CARDIAC ENZYMES ([facility]) STAT 07/29/2013 12:53 PM EST POCT GLUCOSE Routine 07/29/2013 12:36 PM EST EKG 12-LEAD Routine 07/29/2013 11:26 AM EST ASCVD (arteriosclerotic cardiovascular disease) CARDIAC ENZYMES ([facility]) Routine 07/29/2013 10:55 AM EST MISCELLANEOUS LAB REQUEST Routine 07/29/2013 9:24 AM EST EKG 12-LEAD Routine 07/29/2013 7:50 AM EST ASCVD (arteriosclerotic cardiovascular disease) POCT GLUCOSE Routine 07/29/2013 7:46 AM EST ELECTROLYTES PANEL STAT 07/29/2013 6: 06 AM EST ASCVD (arteriosclerotic cardiovascular disease) documented in this encounter Results * SCAN DOC: CIRCULATION CLERK (08/01/2013 8:56 PM EST) Anatomical Region Laterality [...] (Bezet) 405 ms MUSE SYSTEM Calculated P [place] 7 degrees MUSE SYSTEM Calculated R [place] 24 degrees MUSE SYSTEM Calculated T [place] 20 degrees MUSE SYSTEM INTERPRETATION Normal sinus rhythm Normal ECG When compared with ECG of 29-JUL-2013 11:26, No significant change was found Confirmed by MD JACKSON, [place] ([id number]) on 07/30/2013 11:46:49 AM MUSE SYSTEM 07/30/2013 8:41 AM EST 07/30/2013 11:46 AM EST Edy Damon MD ECG ORDERABLES MUSE SYSTEM * POCT Glucose (07/30/2013 8:09 AM EST) Glucose, POC 156 60 - 199 mg/dL [facility] Comment: Supplemental ranges: <110 mg/dL before meals <200 mg/dL all other times of the day Blood specimen (specimen) 07/30/2013 8:09 AM EST 07/30/2013 8:09 AM EST Supa Lopez MD POINT OF CARE TEST ORDERABLES [facility] * Differential, Automated (07/30/2013 6:35 AM EST) Neutrophil % 60.0 34.0 - 71.0 % [facility] Neutrophil Absolute 5.42 1.50 - 6.30 x10(3)/mcL [facility] Lymph % 27.8 19.0 - 53.0 [...] EST Edy Damon MD HEMATOLOGY ORDERABLE S [facility] * CBC (with Diff) (07/30/2013 6:35 [...] Lab Edy Damon MD HEMATOLOGY ORDERABLE S [facility] * (ABNORMAL) Lipid panel (fasting) (07/30/2013 6:30 AM EST) Cholesterol, Total 154 <=199 mg/dL [facility] Comment: Recommendations of the NCEP Adult Treatment Panel for the following risk cutoff thresholds for the [place] population: Desirable: <200 mg/dL Borderline High: 200-239 mg/dL High: > or = 240 mg/dL Triglyceride 156(H) <=149 mg/dL [facility] Comment: Reference Range: Normal triglycerides: ??<150 mg/dL Borderline high: ??150-199 mg/dL High: ??200-499 mg/dL Very high: ??>qi=950 mg/dL RACHEL 2001; 285(19):6706-0635 HDL Cholesterol 36(L) >=40 mg/dL [facility] N[facility] MILL[facility]NI[facility] Comment: Reference range: ??Low HDL: ?? < 40 mg/dL ??Normal: ?40-60 mg/dL ??Desirable: > 60 mg/dL RACHEL 2001; 285(19):9786-6438 LDL Cholesterol 87 <=99 mg/dL [facility] Comment: Reference range: ?? Optimal: ?<100 mg/dL ?? Near Optimal/Above Optimal: ?? 100-129 mg/dL ?? Borderline high: ?130-159 mg/dL ?? High: ? 160-189 mg/dL ?? Very high: ?>kv=185 mg/dL RACHEL 2001: 285(19):6822-8216 Cholesterol/HDL Ratio 4.3 ratio [facility] Comment: A Cholesterol to HDL ratio below 4:1 is desirable. ??Studies suggest that increased CAD risk occurs at ratios above 5 for females and above 6 for men. ? [place] Heart Association ??(http://www.americanheart.org) ? Pallavi Int Med, 1994; 121:641 ? AM J Med, 1998; 105(1A):48S Blood specimen (specimen) 07/30/2013 6:30 AM EST 07/30/2013 6:44 AM EST Narrative Resulting Agency Comment Spec In Lab Edy Damon MD CHEMISTRY ORDERABLES [facility] * (ABNORMAL) BMP w/fasting Glucose (07/30/2013 6:30 AM EST) Glucose Fasting 156(H) 65 - 99 mg/dL [facility] Comment: ?Fasting* Glucose Interpretive Criteria Normal [...] of Diabetes Mellitus, Position Statement from the [place] Diabetes Association. ??Diabetes Care, Volume 33, Supplement 1, Aug 2009 Blood Urea Nitrogen 11 10 - 20 mg/dL [facility] Creatinine 0.62(L) 0.80 - 1.50 mg/dL [facility] Comment: Please note that the pediatric reference intervals supplied above were not validated at [facility]. Results from pediatric patients should be interpreted [...] consensus document of the Joint Society of Cardiology/[place] College of Cardiology Committee for the redefinition of myocardial infarction. ??Journal of the [place] College of Cardiology 2000; 36: 959-969] Creatine Kinase 60 0 - 200 unit/L [facility] Blood specimen (specimen) 07/30/2013 6:30 AM EST 07/30/2013 6:44 AM EST Narrative Resulting Agency Comment Spec In Lab Edy Damon MD CHEMISTRY ORDERABLES Performing Organization Address [facility] de Phone Number [facility] * Miscellaneous Lab request (07/30/2013 6:00 AM EST) Label Request received in lab. [facility] Blood specimen (specimen) 07/30/2013 6:00 AM EST 07/30/2013 6:31 AM EST Edy Damon MD LAB SEND OUT ORDERAB LES Performing Organization Address [facility] de Phone Number [facility] * POCT Glucose (07/30/2013 4:18 AM EST) Glucose, POC 145 60 - 199 mg/dL [facility] Comment: Supplemental ranges: <110 mg/dL before meals <200 mg/dL all other times of the day Blood specimen (specimen) 07/30/2013 4:18 AM EST 07/30/2013 4:18 AM EST Supa Lopez MD POINT OF CARE TEST ORDERABLES Performing Organization Address [facility]/ZIP Co de Phone Number [facility] * POCT Glucose (07/30/2013 12:17 AM EST) Glucose, POC 129 60 - 199 mg/dL [facility] Comment: Supplemental ranges: <110 mg/dL before meals <200 mg/dL all other times of the day Blood specimen (specimen) 07/30/2013 12:17 AM EST 07/30/2013 12:17 AM EST Supa Lopez MD POINT OF CARE TEST ORDERABLES Performing Organization Address [facility] de Phone Number [facility] * POCT Glucose (07/29/2013 8:02 PM EST) Glucose, POC 127 60 - 199 mg/dL [facility] Comment: Supplemental ranges: <110 mg/dL before meals <200 mg/dL all other times of the day Blood specimen (specimen) 07/29/2013 8:02 PM EST 07/29/2013 8:02 PM EST Supa Lopez MD POINT OF CARE TEST ORDERABLES Performing Organization Address [facility] de Phone Number [facility] * Miscellaneous Lab request (07/29/2013 6:05 PM EST) Label Request received in lab. [facility] Blood specimen (specimen) 07/29/2013 6:05 PM EST 07/29/2013 6:17 PM EST Edy Damon MD LAB SEND OUT ORDERAB LES Performing Organization Address [facility] Co de Phone Number [facility] * POCT Glucose (07/29/2013 4:53 PM EST) Glucose, POC 138 60 - 199 mg/dL [facility] Comment: Supplemental ranges: <110 mg/dL before meals <200 mg/dL all other times of the day Blood specimen (specimen) 07/29/2013 4:53 PM EST 07/29/2013 4:53 PM EST Supa Lopez MD POINT OF CARE TEST ORDERABLES Performing Organization Address [facility] de Phone Number [facility] * Cardiac Enzymes (07/29/2013 12:53 PM EST) Troponin-T <0.03 <=0.03 ng/mL [facility] Comment: 0.03 ng/mL: Represents the 99th [...] consensus document of the Joint Society of Cardiology/[place] College of Cardiology Committee for the redefinition of myocardial infarction. ??Journal of the [place] College of Cardiology 2000; 36: 959-969] Creatine Kinase 55 0 - 200 unit/L [facility] Blood specimen (specimen) 07/29/2013 12:53 PM EST 07/29/2013 12:59 PM EST Narrative Resulting Agency Comment Spec In Lab Edy Damon MD CHEMISTRY ORDERABLES Performing Organization Address [facility] de Phone Number [facility] * POCT Glucose (07/29/2013 12:36 PM EST) Glucose, POC 142 60 - 199 mg/dL [facility] Comment: Supplemental ranges: <110 mg/dL before meals <200 mg/dL all other times of the day Blood specimen (specimen) 07/29/2013 12:36 PM EST 07/29/2013 12:36 PM EST Supa Lopez MD POINT OF CARE TEST ORDERABLES Performing Organization Address [facility] de Phone Number [facility] JAYLEENP[facility] * EKG 12 Lead (07/29/2013 11:26 AM EST) Ventricular rate 67 BPM MUSE SYSTEM Atrial Rate 67 BPM MUSE SYSTEM P-R Interval 164 ms MUSE SYSTEM QRS Duration 90 ms MUSE SYSTEM Q-T Interval 394 ms MUSE SYSTEM QTC Calculated (Bezet) 416 ms MUSE SYSTEM Calculated P [place] 48 degrees MUSE SYSTEM Calculated R [place] 33 degrees MUSE SYSTEM Calculated T [place] 32 degrees MUSE SYSTEM INTERPRETATION Normal sinus rhythm Normal ECG When compared with ECG of 29-JUL-2013 07:50, (unconfirmed) No significant change was found Confirmed by MD SELINA, FRED ([id number]) on 07/30/2013 7:39:47 AM MUSE SYSTEM 07/29/2013 11:2 6 AM EST 07/30/2013 7:39 AM EST Edy Damon MD ECG ORDERABLES Performing Organization Address [facility] de Phone Number MUSE SYSTEM * Cardiac Enzymes (07/29/2013 10:55 AM EST) Troponin-T <0.03 <=0.03 ng/mL [facility] Comment: 0.03 ng/mL: Represents the 99th percentile [...] consensus document of the Joint Society of Cardiology/[place] College of Cardiology Committee for the redefinition of myocardial infarction. ??Journal of the [place] College of Cardiology 2000; 36: 959-969] Creatine Kinase 50 0 - 200 unit/L [facility] Blood specimen (specimen) 07/29/2013 10:55 AM EST 07/29/2013 11:08 AM EST Narrative Resulting Agency Comment Spec In Lab Edy Damon MD CHEMISTRY ORDERABLES Performing Organization Address [facility] de Phone Number [facility] * Miscellaneous Lab request (07/29/2013 9:24 AM EST) Label Request received in lab. [facility] Blood specimen (specimen) 07/29/2013 9:24 AM EST 07/29/2013 10:56 AM EST Edy Damon MD LAB SEND OUT ORDERAB LES Performing Organization Address [facility] Phone Number [facility] * EKG 12 Lead (07/29/2013 7:50 AM EST) Ventricular rate 72 BPM MUSE SYSTEM Atrial Rate 72 BPM MUSE SYSTEM P-R Interval 136 ms MUSE SYSTEM QRS Duration 94 ms MUSE SYSTEM Q-T Interval 372 ms MUSE SYSTEM QTC Calculated (Bezet) 407 ms MUSE SYSTEM Calculated P [place] 3 degrees MUSE SYSTEM Calculated R [place] 42 degrees MUSE SYSTEM Calculated T [place] 36 degrees MUSE SYSTEM INTERPRETATION Normal sinus rhythm Normal ECG When compared with ECG of 15-JUN-2012 12:40, No significant change was found Confirmed by MD SELINA, FRED ([id number]) on 07/30/2013 7:24:11 AM MUSE SYSTEM 07/29/2013 7:50 AM EST 07/30/2013 7:24 AM EST Edy Damon MD ECG ORDERABLES Performing Organization Address [facility] Co de Phone Number MUSE SYSTEM * POCT Glucose (07/29/2013 7:46 AM EST) Glucose, POC 160 60 - 199 mg/dL [facility] Comment: Supplemental ranges: <110 mg/dL before meals <200 mg/dL all other times of the day Blood specimen (specimen) 07/29/2013 7:46 AM EST 07/29/2013 7:46 AM EST Supa Lopez MD POINT OF CARE TEST ORDERABLES Performing Organization Address [facility] Co de Phone Number TANG [...] Ball MD CHEMISTRY ORDERABLES Performing Organization Address [facility] Co de Phone Number TANG [...] in sodium chloride 0.9% 90 mL infusion (DELIMER) CONTINUOUS PRN, Starting on Thu07/29/13 at 0955, [...] 07/30/13 at 0900, Until Discontinued, Routine 1342 ([facility] Hold - Provider: Admin Adt - Reason: Transfer to a Procedural area)1343 ([facility] Unhold - Provider: Admin Adt) 0826 (Given - Provider: Reina Randall RN) clopidogrel (PLAVIX) tablet 75 mg (CANCELED) 75 mg, Oral, DAILY, First dose on Thu07/29/13 at 1245, Until Discontinued, Routine 1245 (Not Given - Provider: Jessica Barr RN - Reason: See comment - Comment: pt took in a.m.)1342 ([facility] Hold - Provider: Admin Adt - Reason: Transfer to a Procedural area)1343 ([facility] Unhold - Provider: Admin Adt) 0826 (Given - Provider: Reina Randall RN) cyclobenzaprine (FLEXERIL) tablet 10 mg (CANCELED) 10 mg, Oral, NIGHTLY, First dose on Thu07/29/13 at 2100, Until Discontinued, Routine 1342 ([facility] Hold - Provider: Admin Adt - Reason: Transfer to a Procedural area)1343 ([facility] Unhold - Provider: Admin Adt)2122 (Given - Provider: Mahesh Hurt RN) diaZEPam (VALIUM) tablet 5 mg (COMPLETED) 5 mg, Oral, ONCE, 1 dose, On Thu07/29/13 at 0800, Cath (Day of Procedure), Routine 0838 (Given - Provider: Kemi Mullen, VERO) DILTiazem (DILACOR XR) XR capsule 240 mg (CANCELED) 240 mg, Oral, DAILY, First dose on 07/30/13 at 0900, Until Discontinued, Routine 1342 ([facility] Hold - Provider: Admin Adt - Reason: Transfer to a Procedural area)1343 ([facility] Unhold - Provider: Admin [...] Thu07/29/13 at 2100, Until Discontinued, Routine 1342 ([facility] Hold - Provider: Admin Adt - Reason: Transfer to a Procedural area)1343 ([facility] Unhold - Provider: Admin Adt)2122 (Given - Provider: Mahesh Hurt, RN) 0826 (Given - Provider: Reina Randall RN) furosemide (LASIX) tablet 20 mg (CANCELED) 20 mg, Oral, DAILY, First dose on Thu07/29/13 at 1245, Until Discontinued, Routine 1245 (Not Given - Provider: Jessica Barr RN - Reason: Patient/family refused)1342 ([facility] Hold - Provider: Admin Adt - Reason: Transfer to a Procedural area)1343 ([facility] Unhold - Provider: Admin Adt) 0826 (Given - Provider: Reina Randall RN) gabapentin (NEURONTIN) capsule 300 mg (CANCELED) 300 mg, Oral, 3 TIMES DAILY, First dose on Thu07/29/13 at 1500, Until Discontinued, Routine 1342 ([facility] Hold - Provider: Admin Adt - Reason: Transfer to a Procedural area)1343 ([facility] Unhold - Provider: Admin Adt)1500 [...] 07/30/13 at 0600, Until Discontinued, Routine 1342 ([facility] Hold - Provider: Admin Adt - Reason: Transfer to a Procedural area)1343 ([facility] Unhold - Provider: Admin Adt) 0638 (Given - Provider: Mahesh Hurt RN) metoprolol tartrate (LOPRESSOR) tablet 50 mg (CANCELED) 50 mg, Oral, 2 TIMES DAILY, First dose on Thu07/29/13 at 1245, Until Discontinued, Routine 1245 (Not Given - Provider: Jessica Barr RN - Reason: See comment - Comment: pt took in a.m.)1342 ([facility] Hold - Provider: Admin Adt - Reason: Transfer to a Procedural area)1343 ([facility] Unhold - Provider: Admin Adt)212 (Given - Provider: Mahesh Hurt RN) 08 (Given - Provider: Reina Randall RN) pantoprazole (PROTONIX) tablet 20 mg 20 mg, Oral, DAILY, First dose on 07/30/13 at 0900, Until Discontinued, Restricted to patients on clopidpgrel (PLAVIX) who require a proton pump inhibitor 1342 ([facility] Hold - Provider: Admin Adt - Reason: Transfer to a Procedural area)1343 ([facility] Unhold - Provider: Admin Adt) 0826 (Given - Provider: Reina Randall RN) rosuvastatin (CRESTOR) tablet 10 mg (CANCELED) 10 mg, Oral, EVERY EVENING, First dose on Thu07/29/13 at 1700, Until Discontinued, Routine 1342 ([facility] Hold - Provider: Admin Adt - Reason: Transfer to a Procedural area)1343 ([facility] Unhold - Provider: Admin Adt)1700 [...] (New Bag - Provider: Keeley Kyle RN)1342 ([facility] Hold - Provider: Admin Adt - Reason: Transfer to a Procedural area)1343 ([facility] Unhold - Provider: Admin Adt)1652 (Stopped - Provider: Jessica Barr RN) PRN Medication Order 07/28/2013 07/29/2013 07/30/2013 adenosine 90 mg in sodium chloride 0.9% 90 mL infusion (DELIMER) (CANCELED) CONTINUOUS PRN, Starting on Thu07/29/13 at [...] MD) documented in this encounter Care Teams Dressmaker Garment Fitter Relationship Specialty Start Date End Date Sarita Lim MD [address] [place] [address] PCP - General 07/16/10 documented as of this encounter
--- OUTSIDE RECORDS SUMMARY | 2024-08-05 17:23 | XMS_ITS | Encounter Summary ---
Author Organization [facility] Address [facility] [place] [address] Care Team Providers Care Switchbox Assembler Name Role Phone Coni Lim MD Primary Care Provider [phone] Encounter Details Date Type Department Care Team (Late st Contact Info) Description 05/31/2012 Orders Only Cardiology at [address] [phone] Remedios Burleson, [place] [facility] [place] [address] CAD (coronary artery disease), non-obstructive (Primary Dx) [...] Coronary atherosclerosis of unspecified type of vessel, [place] or graft documented in this encounter Care Teams Switchbox Assembler Relationship Specialty Start Date End Date Coni Lim MD [address] [place] [address] PCP - General 07/16/10 documented as of this encounter
--- OUTSIDE RECORDS SUMMARY | 2024-08-05 17:23 | XMS_ITS | Encounter Summary ---
[place] [address] Care Team Providers Care Allergist/Pediatric Pulmonologist Name Role Phone Coni Lim MD Primary Care Provider [phone] Encounter Details Date Type Department Care Team (Late st Contact Info) Description 05/28/2012 Telephone Cardiology at [address] [phone] Savanah Duncan LPN Social History Tobacco Use [...] 30 days)____work up to be done in [facility] 05/28/12 Date of EKG: work up on 05/28/12 in [facility] Medications:verified. Stop Metformin 48 hour [...] ekg dates. Information not yet available from [facility]. documented in this encounter Plan of Treatment Not on file documented as of this encounter Visit Diagnoses Not on filedocumented in this encounter Care Teams Allergist/Pediatric Pulmonologist Relationship Specialty Start Date End Date Coni Lim MD [address] [place] [address] PCP - General 07/16/10 documented as of this encounter
--- OUTSIDE RECORDS SUMMARY | 2024-08-05 17:23 | XMS_ITS | Clinical Summary ---
Author Organization [facility] Address [address] [place] [address] Care Team Providers Care Travel Occupational Therapist Name Role Phone Coni Lim MD Primary Care Provider [phone] Allergies Active Allergy Reactions Criticality Noted Date Comments Lisinopril (Bulk) Cough 02/14/2014 Thallium-201 02/14/2014 cardiac episode Medications buPROPion (WELLBUTRIN SR) 150 mg SR tablet [...] Take 1 Tablet by mouth SEE ADMIN INSTRUCTIONS . One 25 mg tablet in the morning [...] Take 1 Tablet by mouth SEE ADMIN INSTRUCTIONS . Patient takes one 0.5 mg tablet in the morning and two 0.5 mg tablets at night Active Active Problems Problem Noted Date Diagnosed Date Encephalopathy 04/08/2023 Acute respiratory failure with hypoxia ([facility]) 04/08/2023 Idiopathic hypotension 04/08/2023 CVA (cerebral vascular accident) ([facility]) 03/15 Anxiety and depression 02/22/2014 Unstable angina ([facility]) 02/15/2014 CAD (coronary artery disease) 02/15/2014 Syncope Surgical History Surgery Date Site/Laterality Comments GALLBLADDER SURGERY Medical History Medical History Date Comments HTN (hypertension) HLD (hyperlipidemia) DMII (diabetes mellitus, type 2) ([facility]) CAD (coronary artery disease) Smoking [...] Recorded Sex Assigned at Not on file Legal Sex Male 18:45 EST Gender Identity Male 04/08/2023 10:55 EDT Sexual [...] - 19+ 3-dose series) 06/08 COVID-19 Vaccine (2023- season) 2024 Insurance [employer] Advance Directives For more information, please contact: [phone] * Full Code (Latest Code Status on [...] Comments 02/14/2014 22:30 02/16/2014 17:34 Care Teams Travel Occupational Therapist Relationship Specialty Start Date End Date Coni Lim MD [address] [place] [address] PCP - General 12/17/11
--- OUTSIDE RECORDS SUMMARY | 2024-08-05 17:23 | XMS_ITS | Encounter Summary ---
Author Organization [facility] Address [facility] [place] [address] Care Team Providers Care Sample Cutter Name Role Phone Sarita Lim MD Primary Care Provider Encounter Details Date Type Department Care Team (Latest Contact Info) Description 06/14/2012 1:39 PM EDT - 06/15/2012 6:03 PM EDT Hospital Encounter Intermediate [place] [id number] Bryan Iverson MD [facility] [place] [address] Chest pain; GERD (gastroesophageal reflux disease); HTN [...] appointments: During 8am-5pm Thursday through Thursday call [phone] to speak with a nurse in the cardiology clinic All other times call [phone] and ask to speak to the conveyor feeder offbearer crewman armoured personnel carrier [id number]. Return to work: As tolerated Driving: As tolerated Follow up Appointments: PCP SARITA LIM MD June 22, 2012 at 11:[address] Leyva June 17, 2012 at 9:40 am Home oxygen therapy: N/A Arrangements for VNA/home care: none Pain clinic phone number for referral [phone] * Attachments The following attachments cannot be sent through Care Everywhere. * CHEST PAIN (ANGINA): AFTER YOUR VISIT (SAMI) documented in this encounter Medications at Time [...] Progress Note Patient Name: Romeo Coe Service: ABLE SEAMAN / PA Responsible Attending: Dr. Iverson Reason for continued hospitalization: Evaluation and management of chest pain, myocardial infarction excluded by enzymes Active Problems: Active Hospital Problems Diagnoses ??? Chest pain ??? Dyslipidemia ??? GERD (gastroesophageal reflux disease) ??? HTN (hypertension) ??? DM (diabetes mellitus) ??? Smoker ??? CAD (coronary artery disease), non-obstructive - [facility] 2009 post abnormal nuc stress [...] ??? DISCONTD: sodium chloride 0.9% Stopped (06/15/12 9483) ??? DISCONTD: heparin 1,650 Units/hr (06/15/12 0315) [...] abnormality. ECG without change. Ruled out for MS despite having over 6 hours of pain. Chest pain responsive to nitrates and to morphine yesterday. Pain free this morning. This afternoon, chest pain lying in bed 5/10. ECG unchanged. Responsive to nitroglycerin. Barium swallow cancelled due to barium shortage. Will schedule as an outpatient. Reviewed possibilities of chest pain. Ruled out for PE with negative D dimer yesterday at [facility]. No effusion on echo. CXR negative for widened mediastinum. Hepatic labs normal. No gallbladder. Ruled out for MS and no cardiac enzymes or objective evidence of ischemia seen. Patient has history of fibromyalgia managed by cymbalta. Will increase nitrate dosing and consult pain service. Plan: Chest pain Non cardiac, ruled out for MS, echo showed no WMA ? Esophageal spasm [...] (coronary artery disease), non-obstructive - [facility] 2009 post abnormal nuc stress [...] son's biological father. He wastransported to the [facility] ED where he was evaluated and [...] rehab and he was transferred to the [facility] ED where 3 moresl nitroglycerin tablets were given. He didn't have any relief with these nitroglycerin tablets. In the [facility] ED his ECG showed no change, negative d dimer and troponin. He was given IV lopressor which dropped his HR from 115 to 90, IV zofran 4 mg and IV ativan 0.[address] was done which is reported as negative. He was transferred to [facility] for further management. He arrives to [facility] with 6/10 chest pain and jaw [...] of Onset ??? Heart Attack Father 46 MS, CABG ??? Diabetes Mother ??? Hypertension Mother [...] son (age 18 months), daughter 11 in [place], [place]. Takes care of his mother who has dementia and he takes her to dialysis. is disabled. Has grown daughter who is 29 years old. 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 REVIEW OF SYSTEMS: Review of Systems Constitutional: [...] ECG change or elevated troponin found at [facility]. Chest pain has remained for 6 hours without relief, will check [facility] cardiac enzymes. ECG at [facility] unchanged fromECG at discharge 10 days ago. Will get echo with pain now to evaluate for wall motion abnormality. Will place on heparin gtt TREATMENT PLAN: Chest pain Will get echo with pain Start heparin gtt Cycle cardiac enzymes, 1st set at [facility] negative Non nitrate responsive CAD On aspirin, [...] Iverson Provider: SUSHMA WILCOX APRN Provider #: [id number] STAFF ADDENDUM Patient interviewed and examined. Medical [...] 06/16/2012 11:28 AM EDTAssociated Order(s): SCAN DOC: ENTRY LEVEL WEB DEVELOPER documented in this encounter Miscellaneous Notes * [...] questions, * Discharge Summary - Sushma Wilcox, AREA LOSS PREVENTION MANAGER - 06/15/2012 9:53 AM EDT Images from [...] (coronary artery disease), non-obstructive - [facility] 2009 post abnormal nuc stress [...] son's biological father. He wastransported to the [facility] ED where he was evaluated and [...] rehab and he was transferred to the [facility] ED where 3 more sl nitroglycerin tablets were given. He didn't have any relief with these nitroglycerin tablets. In the [facility] ED his ECG showed no change, negative d dimer and troponin. He was given IV lopressor which dropped his HR from 115 to 90, IV zofran 4 mg and IV ativan 0.[address] was done which is reported as negative. He was transferred to [facility] for further management. He arrives to [facility] with 6/10 chest pain and jaw pain. He appears to be resting comfortably in bed. Hospital Course: Chest Pain, non cardiac The patient had ongoing pain on arrival to [facility], rated 5/10. Echo done at the time showed no wall motion abnormality and an EF of 65%. He had negative cardiac enzymes x 3 sets and heparin was stopped. Chest pain resolved with morphine. Overnight he had another episode of chest pain which was nitrate responsive. Chest pain from the following causes was excluded: Cardiac, pulmonary with normal d dimer at [facility] and CXR with only smoker's changes, [...] meds needed now, [facility] Patient switched to plavix due [...] appointments: During 8am-5pm Thursday through Thursday call [phone] to speak with a nurse in the cardiology clinic All other times call [phone] and ask to speak to the conveyor feeder offbearer crewman armoured personnel carrier [id number]. Return to work: As tolerated Driving: As tolerated Follow up Appointments: PCP SARITA LIM MD June 22, 2012 at 11:[address] Leyva June 17, 2012 at 9:40 am Home oxygen therapy: N/A Arrangements for VNA/home care: none Pain clinic phone number for referral [phone] Provider Contact Information: SUSHMA WILCOX, AREA LOSS PREVENTION MANAGER [phone] Discharge References/Attachments: Discharge References/Attachments None Signed: Sushma Wilcox, AREA LOSS PREVENTION MANAGER 06/15/2012 * Miscellaneous - Provider, Scanning - 06/14/2012 9:38 PM EDT documented in this encounter Plan of Treatment Not on file documented as of this encounter Procedures Procedure Name Priority Date/Time Associated Diagnosis Comments ENTRY LEVEL WEB DEVELOPER SCAN 06/16/2012 11:28 AM EDT POCT GLUCOSE [...] 10:40 PM EDT Chest pain CARDIAC ENZYMES ([facility]) STAT 06/14/2012 8:55 PM EDT APTT STAT 06/14/2012 8:55 PM EDT XR CHEST PA AND LATERAL Routine 06/14/20 12 8:45 PM EDT POCT GLUCOSE Routine 06/14/2012 8:11 PM EDT POCT GLUCOSE Routine 06/14/2012 4:57 PM EDT ECHOCARDIOGRAM TRANSTHORACIC STAT 06/14/2012 4:00 PM EDT Chest pain BMP W/FASTING GLUCOSE STAT 06/14/2012 2:38 PM EDT DIFFERENTIAL, AUTOMATED STAT 06/14/20 12 2:38 PM EDT CARDIAC ENZYMES ([facility]) STAT 06/14/2012 2:38 PM EDT APTT STAT 06/14/2012 2:38 PM EDT PROTHROMBIN TIME STAT 06/14/2012 2:38 PM EDT CBC (WITH DIFF) STAT 06/14/2012 2:38 PM EDT EKG 12-LEAD STAT 06/14/2012 2:27 PM EDT Chest pain documented in this encounter Results * SCAN DOC: ENTRY LEVEL WEB DEVELOPER (06/16/2012 11:28 AM EDT) Anatomical Region Laterality Modality Other Narrative 06/16/2012 1:12 PM EDT Procedure Note Provider, Scanning - 06/16/2012 11:28 AM EDT Scanning Provider MEDIA MGR SCAN EXT O RDR/RSLT * POCT GLUCOSE (06/15/2012 5:48 PM EDT) Glucose, POC 138 60 - 199 mg/dL [facility] Comment: Supplemental ranges: <110 mg/dL before meals <200 mg/dL all other times of the day Blood specimen (specimen) 06/15/2012 5:48 PM EDT 06/15/2012 5:48 PM EDT Bryan Iverson MD POINT OF CARE TEST O RDERABLES Performing Organization Address [facility] Co de Phone Number [facility] * EKG 12 Lead (06/15/2012 12:40 PM EDT) Ventricular rate 91 BPM MUSE SYSTEM Atrial Rate 91 BPM MUSE SYSTEM P-R Interval 138 ms MUSE SYSTEM QRS Duration 82 ms MUSE SYSTEM Q-T Interval 328 ms MUSE SYSTEM QTC Calculated (Bezet) 403 ms MUSE SYSTEM Calculated P [place] 27 degrees MUSE SYSTEM Calculated R [place] 31 degrees MUSE SYSTEM Calculated T [place] 41 degrees MUSE SYSTEM INTERPRETATION Normal sinus rhythm Normal ECG When compared with ECG of 15-JUN-2012 07:17, No significant change was found Confirmed by MD Walton Douglas ([id number]) on 06/15/2012 2:25:30 PM MUSE SYSTEM 06/15/2012 12:4 0 PM EDT 06/15/2012 2:25 PM EDT Bryan Iverson MD ECG ORDERABLES Performing Organization Address City/[facility]/ZIP Co de Phone Number MUSE SYSTEM * POCT GLUCOSE (06/15/2012 12:00 PM EDT) Glucose, POC 164 60 - 199 mg/dL [facility] Comment: Supplemental ranges: <110 mg/dL before meals <200 mg/dL all other times of the day Blood specimen (specimen) 06/15/2012 12:00 PM EDT 06/15/2012 12:00 PM EDT Bryan Iverson MD POINT OF CARE TEST O RDERAAIRAM Performing Organization Address [facility] de Phone Number [facility] * POCT GLUCOSE (06/15/2012 7:51 AM EDT) Pathologist [facility] Glucose, POC 166 60 - 199 mg/dL [facility] Comment: Supplemental ranges: <110 mg/dL before meals <200 mg/dL all other times of the day Blood specimen (specimen) 06/15/2012 7:51 AM EDT 06/15/2012 7:51 AM EDT Bryan Ievrson MD POINT OF CARE TEST O RDERAAIRAM Performing Organization Address [facility] de Phone Number [facility] * (ABNORMAL) APTT (06/15/2012 7:35 AM EDT) Partial Thromboplastin Time 130(H) 25 - 35 sec [facility] Comment: Recommended therapeutic PTT range for full dose unfractionated heparin is 80-114 seconds. Blood specimen (specimen) 06/15/2012 7:35 AM EDT 06/15/2012 7:49 AM EDT Narrative Resulting Agency Comment Spec In Lab Bryan Iverson MD HEMATOLOGY ORDERABLE S Performing Organization Address [facility] Phone Number [facility] * EKG 12 Lead (06/15/2012 7:17 AM EDT) Ventricular rate 69 BPM MUSE SYSTEM Atrial Rate 69 BPM MUSE SYSTEM P-R Interval 148 ms MUSE SYSTEM QRS Duration 94 ms MUSE SYSTEM Q-T Interval 374 ms MUSE SYSTEM QTC Calculated (Bezet) 400 ms MUSE SYSTEM Calculated P [place] 20 degrees MUSE SYSTEM Calculated R [place] 35 degrees MUSE SYSTEM Calculated T [place] 36 degrees MUSE SYSTEM INTERPRETATION Normal sinus rhythm Normal ECG When compared with ECG of 14-JUN-2012 22:40, (unconfirmed) No significant change was found Confirmed by MD Walton Douglas ([id number]) on 06/15/2012 9:36:33 AM MUSE SYSTEM 06/15/2012 7:17 AM EDT 06/15/2012 9:36 AM EDT Bryan Iverson MD ECG ORDERABLES Performing Organization Address [facility]/ZIP Co de Phone Number MUSE SYSTEM * CARDIAC ENZYMES (06/15/2012 2:08 AM EDT) Troponin-T <0.03 <=0.03 ng/mL [facility] Comment: 0.03 ng/mL: Represents the 99th percentile upper reference limit for normals. >0.03 ng/mL: Elevated cardiac troponin T level indicative of myocardial damage. Diagnosis of acute, evolving or recent MS requires a typical rise and gradual fall [...] consensus document of the Joint Society of Cardiology/Wallisian College of Cardiology Committee for the redefinition of myocardial infarction. Journal of the [place] College of Cardiology 2000; 36: 959-969] Creatine Kinase 52 0 - 200 unit/L [facility] Blood specimen (specimen) 06/15/2012 2:08 AM EDT 06/15/2012 2:28 AM EDT Narrative Resulting Agency Comment Spec In Lab Bryan Iverson MD CHEMISTRY ORDERABLES Performing Organization Address [facility]/ZIP Co de Phone Number [facility] [employer] * (ABNORMAL) BMP w/fasting Glucose (06/15/2012 2:08 AM EDT) Glucose Fasting 125(H) 65 - 99 mg/dL [facility] Comment: ?Fasting* Glucose Interpretive Criteria Normal ?65-99 [...] intervals supplied above were not validated at [facility]. Results from pediatric [...] Iverson MD CHEMISTRY ORDERABLES Performing Organization Address [facility] Co de Phone Number [employer] * (ABNORMAL) APTT (06/15/2012 2:08 AM EDT) [facility] Signature Partial Thromboplastin Time 76(H) 25 - 35 sec TANG [facility] Comment: Recommended therapeutic PTT range for full dose unfractionated heparin is 80-114 seconds. Blood specimen (specimen) 06/15/2012 2:08 AM EDT 06/15/2012 2:28 AM EDT Narrative Resulting Agency Comment Spec In Lab Bryan Iverson MD HEMATOLOGY ORDERABLE S Performing Organization Address [facility] Co de Phone Number CERNER MILLENNIUM [...] Iverson MD CHEMISTRY ORDERABLES Performing Organization Address City/[facility] Co de Phone Number TANG CLEMENSIUM * TSH (06/15/2012 2:08 AM EDT) Thyroid Stimulating Hormone 1.62 0.27 - 4.20 mcIU/mL CERNER MILLENNIUM Blood specimen (specimen) 06/15/2012 2:08 AM EDT 06/15/2012 2:28 AM EDT Narrative Resulting Agency Comment Spec In Lab Bryan Iverson MD CHEMISTRY ORDERABLES Performing Organization Address City/[facility] Co de Phone Number CERANNABEL JENSENENNIUM [...] MD HEMATOLOGY ORDERABLE S Performing Organization Address [facility] de Phone Number [facility] * EKG 12 Lead (06/14/2012 10:40 PM EDT) Pathologist [facility] Ventricular rate 87 BPM MUSE SYSTEM Atrial Rate 87 BPM MUSE SYSTEM P-R Interval 152 ms MUSE SYSTEM QRS Duration 90 ms MUSE SYSTEM Q-T Interval 356 ms MUSE SYSTEM QTC Calculated (Bezet) 428 ms MUSE SYSTEM Calculated P [place] 33 degrees MUSE SYSTEM Calculated R [place] 27 degrees MUSE SYSTEM Calculated T [place] 37 degrees MUSE SYSTEM INTERPRETATION Normal sinus rhythm Normal ECG When compared with ECG of 14-JUN-2012 14:27, No significant change was found Confirmed by MD Anton, Asif ([id number]) on 06/15/2012 9:29:03 AM MUSE SYSTEM 06/14/2012 10:4 0 PM EDT 06/15/2012 9:29 AM EDT Bryan Iverson MD ECG ORDERABLES Performing Organization Address [facility] de Phone Number MUSE SYSTEM * Cardiac Enzymes (06/14/2012 8:55 PM EDT) Pathologist [facility] Troponin-T <0.03 <=0.03 ng/mL [facility] Comment: 0.03 ng/mL: Represents the 99th percentile upper reference limit for normals. >0.03 ng/mL: Elevated cardiac troponin T level indicative of myocardial damage. Diagnosis of acute, evolving or recent MS requires a typical rise and gradual fall [...] consensus document of the Joint Society of Cardiology/[place] College of Cardiology Committee for the redefinition of myocardial infarction. Journal of the [place] College of Cardiology 2000; 36: 959-969] Creatine Kinase 53 0 - 200 unit/L CERANNABEL [facility] Blood specimen (specimen) 06/14/2012 8:55 PM EDT 06/14/2012 9:40 PM EDT Narrative Resulting Agency Comment Spec In Lab Bryan Iverson MD CHEMISTRY ORDERABLES Performing Organization Address City/[facility]/ZIP Co de Phone Number TANG [employer] * APTT (06/14/2012 8:55 PM EDT) Partial Thromboplastin Time 33 25 - 35 sec CERANNABEL [employer] Comment: Recommended therapeutic PTT range for full dose unfractionated heparin is 80-114 seconds. Blood specimen (specimen) 06/14/2012 8:55 PM EDT 06/14/2012 9:40 PM EDT Narrative Resulting Agency Comment Spec In Lab Bryan Iverson MD HEMATOLOGY ORDERABLE S Performing Organization Address City/[facility]/ZIP Co de Phone Number TANG [employer] * XR chest routine PA & lateral (06/14/2012 8:45 PM EDT) Anatomical Region Laterality Modality Chest N/A Radiographic Shelly ging 06/14/2012 8:45 PM EDT Narrative 06/15/2012 9:18 AM EDT Examination CHEST ROUTINE 2 VIEWS Clinical History chest pain, + smoker, recent coronary stents Comparison Is made with the study of 06/14 624597 hours. Technique Findings Cardiomediastinal silhouette is normal. [...] Is made with the study of 06/14 747470 hours. Technique Findings Cardiomediastinal silhouette is normal. [...] Glucose, POC 207(H) 60 - 199 mg/dL [facility] Comment: Supplemental ranges: <110 mg/dL before meals <200 mg/dL all other times of the day Blood specimen (specimen) 06/14/2012 8:11 PM EDT 06/14/2012 8:11 PM EDT Bryan Iverson MD POINT OF CARE TEST O EVITA Performing Organization Address [facility] Co de Phone Number [facility] [employer] * POCT GLUCOSE (06/14/2012 4:57 PM EDT) Glucose, POC 119 60 - 199 mg/dL [facility] Comment: Supplemental ranges: <110 mg/dL before meals <200 mg/dL all other times of the day Blood specimen (specimen) 06/14/2012 4:57 PM EDT 06/14/2012 4:57 PM EDT Bryan Iverson MD POINT OF CARE TEST O EVITA [facility] [employer] * Echo Transthoracic (Complete) (06/14/2012 4:00 PM EDT) EF 65 HEART[facility] SYSTEM Anatomical Region Laterality Modality Other 06/14/2012 Narrative 06/14/2012 4:26 PM EDT Amended Report Procedure: ? Transthoracic Echocardiogram Patient: ? LAQUITA Pop ?(Age): 1965(47) Med Rec#: ?[id number] ? Sex: ?M ? Site Loc: ?[facility] ? Ht / Wt: ??176(cm)/114(kg) Pt. Loc: ? Adult Floor ?BSA: ?2.36 Study Date: ?06/14/2012 ? Pt. Type: Inpatient Tape: ? Referring: Bryan Iverson ([id number]) Referring: STEPHANIE WILLIAM I Allergy And Immunology Chief: Juan Haley [facility] Diagnosis: ??Chest pain (786.50) CPT Code(s): ??Echo LTD (55022), ??Definity ([id number]), Indication(s): ??Chest Pain Rhythm: SUMMARY: 1. Technically [...] ? Mid-Inferior ?Normal ? Mid-Inferoseptal ?Normal ? [place]-Septal ? Normal ? [place]-Anterior ? Normal ? [place]-Lateral ?Normal ? [place]-Inferior ? Normal ? [place]-Tip ?Normal ? Chambers ?Value ?Units (Range) ? [...] 06/14/2012 16:26:31 Images reviewed and interpretation verified [facility] Cardiac Ultrasound Laboratory Procedure Note Cali Shannon MD - 06/14/2012 Amended Report Procedure: Transthoracic Echocardiogram Patient: LAQUITA Pop DOB(Age): 1965(47) Med Rec#: [id number] Sex: M Site Loc: [facility] Ht / Wt: 176(cm)/114(kg) Pt. Loc: Adult Floor BSA: 2.36 Study Date: 06/14/2012 Pt. Type: Inpatient Tape: Referring: Bryan IversonNatalie ([id number]) Referring: STEPHANIE WILLIAM I Allergy And Immunology Chief: Juan Haley [facility] Diagnosis: Chest pain (786.50) CPT Code(s): Echo LTD (04928), Definity ([id number]), Indication(s): Chest Pain Rhythm: SUMMARY: 1. Technically [...] Normal Mid-Posterolateral Normal Mid-Inferior Normal Mid-Inferoseptal Normal [place]-Septal Normal [place]-Anterior Normal [place]-Lateral Normal [place]-Inferior Normal [place]-Tip Normal Chambers Value Units (Range) LV EF Est 65 % (55 to 80) IVSd 2D 0.9 cm LVIDd 2D 4.6 cm PWd 2D 1 cm LVIDs 2D 3.1 cm LVFS 2D 32 % This report has been electronically signed by: Cali Shannon MD 06/14/2012 16:26:31 Images reviewed and interpretation verified [facility] Cardiac Ultrasound Laboratory Bryan Iverson MD ECHO [...] Cardiac Enzymes (06/14/2012 2:38 PM EDT) Pathologist [facility] Troponin-T <0.03 <=0.03 ng/mL [facility]EMORY Comment: 0.03 ng/mL: Represents the 99th percentile upper reference limit for normals. >0.03 ng/mL: Elevated cardiac troponin T level indicative of myocardial damage. Diagnosis of acute, evolving or recent MS requires a typical rise and gradual fall [...] consensus document of the Joint Society of Cardiology/[place] College of Cardiology Committee for the redefinition of myocardial infarction. Journal of the [place] College of Cardiology 2000; 36: 959-969] Creatine Kinase 48 0 - 200 unit/L [facility] [employer] Blood specimen (specimen) 06/14/2012 2:38 PM EDT 06/14/2012 3:04 PM EDT Narrative Resulting Agency Comment Spec In Lab Bryan Iverson MD CHEMISTRY ORDERABLES Performing Organization Address [facility] Phone Number TANG NORTON * APTT (06/14/2012 2:38 PM EDT) Pathologist [facility] Partial Thromboplastin Time 26 25 - 35 sec [facility]ENTERANNABEL JENSENOneTouchEMR Comment: Recommended therapeutic PTT range for full dose unfractionated heparin is 80-114 seconds. Blood specimen (specimen) 06/14/2012 2:38 PM EDT 06/14/2012 3:04 PM EDT Narrative Resulting Agency Comment Spec In Lab Bryan Iverson MD HEMATOLOGY ORDERABLE S Performing Organization Address [facility] Co de Phone Number TANG NORTON * Prothrombin Time (06/14/2012 2:38 PM EDT) Prothrombin Time 13.3 11.9 - 14.7 sec CERNER MILLENNIUM Comment: [facility] Transfusion Committee Guidelines: INR less than [...] BMP w/fasting Glucose (06/14/2012 2:38 PM EDT) [facility] Signature Glucose Fasting 117(H) 65 - [...] intervals supplied above were not validated at [facility]. Results from pediatric [...] Lab Bryan Iverson MD CHEMISTRY ORDERABLES [facility] * EKG 12 Lead (06/14/2012 2:27 PM EDT) Ventricular rate 91 BPM MUSE SYSTEM Atrial Rate 91 BPM MUSE SYSTEM P-R Interval 134 ms MUSE SYSTEM QRS Duration 84 ms MUSE SYSTEM Q-T Interval 348 ms MUSE SYSTEM QTC Calculated (Bezet) 428 ms MUSE SYSTEM Calculated P [place] 6 degrees MUSE SYSTEM Calculated R [place] 29 degrees MUSE SYSTEM Calculated T [place] 25 degrees MUSE SYSTEM INTERPRETATION Normal sinus [...] Coronary atherosclerosis of unspecified type of vessel, [place] or graft Smoker Tobacco use disorder Dyslipidemia [...] than 145 sec X 2 - call house repairer See Bolus dosing guidance for aPTT values [...] than 145 sec X 2 - call house repairer See Bolus dosing guidance for aPTT values [...] Karishma Malagon RN - Comment: per MD crewman armoured personnel carrier [id number], hold for now) PRN Medication Order 06/13/2012 [...] Routine documented in this encounter Care Teams Sample Cutter Relationship Specialty Start Date End Date Sarita Lim MD [address] [place] [address] PCP - General 07/16/10 documented as of this encounter
--- OUTSIDE RECORDS SUMMARY | 2024-08-05 17:23 | XMS_ITS | Referral Summary ---
Author Organization [facility] Address [address] [place] [address] Care Team Providers Care Greenhouse Specialist Name Role Phone Coni Lim MD Primary Care Provider [phone] Allergies Active Allergy Reactions Criticality Noted Date [...] Encephalopathy 04/08/2023 Acute respiratory failure with hypoxia ([facility]) 04/08/2023 Idiopathic hypotension 04/08/2023 CVA (cerebral vascular accident) ([facility]) 03/15 Anxiety and depression 02/22/2014 Unstable angina ([facility]) 02/15/2014 CAD (coronary artery disease) 02/15/2014 [...] Index 38.48 04/08/2023 1158 EDT Functional Status * Do you have serious difficulty walking or climbing stairs? (5 years old or older) Answer Date of Assessment Author No 04/08/2023 5:00 EDOxana Yan RN * Do you have difficulty dressing or bathing? (5 years old or older) Answer Date of Assessment Author No 04/08/2023 5:00 Oxana Tom RN Plan of Treatment Not on file Insurance [employer] Advance Directives For more information, please contact: [phone] * Full Code (Latest Code Status on [...] Comments 02/14/2014 22:30 02/16/2014 17:34 Care Teams Greenhouse Specialist Relationship Specialty Start Date End Date Coni Lim MD [address] [place] [id number] PCP - General 12/17/11
--- OUTSIDE RECORDS SUMMARY | 2024-08-05 17:23 | XMS_ITS | Encounter Summary ---
Author Organization [facility] Address [facility] [address] Care Team Providers Care Voice Professor Name Role Phone Coni Lim MD Primary Care Provider [phone] Encounter Details Date Type Department Care Team (Late st Contact Info) Description 06/14/2012 [place] [address] Benjie Castellon MD [facility] [place] [address] Social History Tobacco Use Types Packs/Day Years [...] on filedocumented in this encounter Care Teams Voice Professor Relationship Specialty Start Date End Date Coni Lim MD [address] [place] [address] PCP - General 07/16/10 documented as of this encounter
--- OUTSIDE RECORDS SUMMARY | 2024-08-05 17:23 | XMS_ITS | Encounter Summary ---
Author Organization [facility] [place] [address] Care Team Providers Care Digital Marketing Officer Name Role Phone Coni Lim MD Primary Care Provider [phone] Encounter Details Date Type Department Care Team (Late st Contact Info) Description 07/26/2013 Telephone Cardiology at [address] [id number] Shanell Julian CMA Social History Tobacco Use [...] filedocumented in this encounter Care Teams Digital Marketing Officer Relationship Specialty Start Date End Date Coni Lim MD [address] [place] [address] PCP - General 07/16/10 documented as of this encounter
--- OUTSIDE RECORDS SUMMARY | 2024-08-05 17:23 | XMS_ITS | Encounter Summary ---
Author Organization [facility] [place] [address] Care Team Providers Care Plant Taxonomy Teacher Name Role Phone Coni Lim MD Primary Care Provider [phone] Encounter Details Date Type Department Care Team (Late st Contact Info) Description 06/04/2012 Telephone [place] [address] Chester Pitts, RN Social History Tobacco Use [...] on filedocumented in this encounter Care Teams Plant Taxonomy Teacher Relationship Specialty Start Date End Date Coni Lim MD [address] [place] [address] PCP - General 07/16/10 documented as of this encounter
--- OUTSIDE RECORDS SUMMARY | 2024-08-05 17:23 | XMS_ITS | Encounter Summary ---
Author Organization [facility] Address [facility] [place] [address] Care Team Providers Care Linen Worker Name Role Phone Sarita Lim MD Primary Care Provider [phone] Encounter Details Date Type Department Care Team (Late st Contact Info) Description 06/03/2012 9:55 AM EDT - 06/03/2012 10:55 AM EDT Surgery [place] [id number] Kathie Cotter MD [facility] [place] [address] CARDIAC CATHETERIZATION Social History Tobacco Use Types [...] appointments: During 8am-5pm Thursday through Thursday call [phone] to speak with a nurse in the cardiology clinic All other times call [phone] and ask to speak to the bake room worker construction sales manager. Return to work: One week Driving: No driving for 48 hours after catheterization. Follow up Appointments: PCP: SARITA LIM MD , Call for appointment in 1-2 weeks. Soil And Plant Scientist: Dr Leyva, You should be seen in 3-4 weeks for follow up. Please call for appointment * Attachments The following attachments cannot be sent through Care Everywhere. * PERCUTANEOUS CORONARY INTERVENTION: WHAT TO EXPECT AT HOME (JORDANIAN) * CHEST PAIN (ANGINA): AFTER YOUR VISIT (JORDANIAN) documented in this encounter Medications at Time [...] NSR Meds: Current facility-administered medications ordered in [facility] Medication Dose Route Frequency Provider Last [...] tablet 90 mg 90 mg Oral Daily Bryna Stephen MD ??? metoprolol (LOPRESSOR) tablet 12.5 [...] in sodium chloride 0.9% 50 mL infusion (COOKER SODA) Intravenous Continuous PRN Kathie Cotter MD Last Dose: 194.3 mg/hr at 06/03/12 1509 ??? DISCONTD: adenosine 90 mg in sodium chloride 0.9% 90 mL infusion (COOKER SODA) Intravenous Continuous PRN Kathie Cotter MD Last [...] Family History: Father-, pre-mature CAD (age 46), [place], CABG Uncle +CAD Mother, DM, HTN. HLP [...] to arthritis and fibromyalgia Provider: LENORE HOFFMAN 5621 documented in this encounter Procedure Notes * Provider, Scanning - 06/04/2012 10:04 PM EDTAssociated Order(s): SCAN DOC: FISH PACKER * Provider, Scanning - 06/03/2012 4:39 PM [...] to the outpatient cardiac rehabilitation program at [facility] was discussed. A referral [...] ??? CAD (coronary artery disease), non-obstructive - [facility] 2009 post abnormal nuc stress [...] appointments: During 8am-5pm Thursday through Thursday call [phone] to speak with a nurse in the cardiology clinic All other times call [phone] and ask to speak to the bake room worker construction sales manager. Return to work: One week Driving: No driving for 48 hours after catheterization. Follow up Appointments: PCP: SARITA LIM MD , Call for appointment in 1-2 weeks. Soil And Plant Scientist: Dr Leyva, You should be seen in 3-4 weeks for follow up. Please call for appointment General Instructions None Future Appointments and Orders Future Appointments: Provider: Department: Dept Phone: Center: 06/04/2012 4:45 PM Echo Inpatient [facility] Non-Inv Card Lab [phone] None Provider Contact Information: Dr. Kathie Stephen Section of Cardiology [facility] [phone] Discharge References/Attachments: Discharge References/Attachments None Signed: Bryan Stephen MD DATE: 06/04/2012 * Miscellaneous - Provider, Scanning - 06/03/2012 11:02 AM EDT documented in this encounter Plan of Treatment Not on file documented as of this encounter Procedures Procedure Name Priority Date/Time Associated Diagnosis Comments CARDIAC CATHETERIZATION Routine 06/07/20 12 2:15 PM EDT FISH PACKER SCAN 06/04/2012 10:04 PM EDT ECHOCARDIOGRAM TRANSTHORACIC [...] CAD (coronary artery disease), non-obstructive CARDIAC ENZYMES ([facility]) STAT 06/03/2012 4:00 PM EDT CARDIAC CATHETERIZATION 06/03/20 12 2:02 PM EDT CP POCT GLUCOSE Routine 06/03/2012 11:11 AM EDT documented in this encounter Results * Cardiac Catheterization (06/07/2012 2:15 PM EDT) Anatomical Region Laterality Modality Other Narrative 06/03/2012 4:39 PM EDT Procedure Note Provider, Scanning - 06/03/2012 4:39 PM EDT Kathie Cotter MD CARDIAC CATH ORDERAB LES * SCAN DOC: FISH PACKER (06/04/2012 10:04 PM EDT) Anatomical Region Laterality Modality Other Narrative 06/06/2012 2:36 AM EDT Procedure Note Provider, Scanning - 06/04/2012 10:04 PM EDT Scanning Provider MEDIA MGR SCAN EXT O RDR/RSLT * Echo Transthoracic (Complete) (06/04/2012 8:57 AM EDT) [facility] EF 60 HEARTSocialGO SYSTEM Anatomical Region Laterality Modality Other 06/04/2012 Narrative 06/04/2012 9:13 AM EDT Procedure: ? Transthoracic Echocardiogram Patient: ? LAQUITA Pop ?(Age): 1965(46) Med Rec#: ?[id number] ? Sex: ?M ? Site Loc: ?[facility] ? Ht / Wt: ??176(cm)/122(kg) Pt. Loc: ? Adult Floor ?BSA: ?2.44 Study Date: ?06/04/2012 ? Pt. Type: Inpatient Tape: ? Referring: Kathie Cotter Filling Machine Tender: Khoi Gaines [facility] Filling Machine Tender 2: Mason Duron ([id number]) Diagnosis: ??Chest pain (786.50) CPT Code(s): ??Echo Full (84014), ??Spectral Doppler (71148), ??Color Doppler (43949), ??Definity (72952AD), Indication(s): ??Chest Pain Rhythm: HR ?BP 78 [...] ? Mid-Inferior ?Normal ? Mid-Inferoseptal ?Normal ? [place]-Septal ? Normal ? [place]-Anterior ? Normal ? [place]-Lateral ?Normal ? [place]-Inferior ? Normal ? [place]-Tip ?Normal ? Chambers ?Value ?Units (Range) ? [...] 06/04/2012 09:12:51 Images reviewed and interpretation verified [facility] Cardiac Ultrasound Laboratory Procedure Note Christos Buchanan MD - 06/04/2012 Procedure: Transthoracic Echocardiogram Patient: LAQUITA Pop (Age): 1965(46) Med Rec#: [id number] Sex: M Site Loc: [facility] Ht / Wt: 176(cm)/122(kg) Pt. Loc: Adult Floor BSA: 2.44 Study Date: 06/04/2012 Pt. Type: Inpatient Tape: Referring: Kathie Cotter Filling Machine Tender: Khoi Gaines [facility] Filling Machine Tender 2: Mason Duron ([id number]) Diagnosis: Chest pain (786.50) CPT Code(s): Echo Full (19244), Spectral Doppler (19923), Color Doppler (99655), Definity (09444DI), Indication(s): Chest Pain Rhythm: HR BP 78 [...] Normal Mid-Posterolateral Normal Mid-Inferior Normal Mid-Inferoseptal Normal [place]-Septal Normal [place]-Anterior Normal [place]-Lateral Normal [place]-Inferior Normal [place]-Tip Normal Chambers Value Units (Range) LV EF [...] 06/04/2012 09:12:51 Images reviewed and interpretation verified [facility] Cardiac Ultrasound Laboratory Kathie Cotter MD ECHO ORDERABLES * POCT GLUCOSE (06/04/2012 7:06 AM EDT) Pathologist [facility] Glucose, POC 183 60 - 199 mg/dL [facility] Comment: Supplemental ranges: <110 mg/dL before meals <200 mg/dL all other times of the day Blood specimen (specimen) 06/04/2012 7:06 AM EDT 06/04/2012 7:06 AM EDT Kathie Cotter MD POINT OF CARE TEST O RDERABLES Performing Organization Address City/[facility]/ZIP Co de Phone Number [facility] * EKG 12-LEAD (06/04/2012 6:07 AM EDT) Ventricular rate 77 BPM MUSE SYSTEM Atrial Rate 77 BPM MUSE SYSTEM P-R Interval 150 ms MUSE SYSTEM QRS Duration 92 ms MUSE SYSTEM Q-T Interval 372 ms MUSE SYSTEM QTC Calculated (Bezet) 420 ms MUSE SYSTEM Calculated P [place] 30 degrees MUSE SYSTEM Calculated R [place] 37 degrees MUSE SYSTEM Calculated T [place] 30 degrees MUSE SYSTEM INTERPRETATION Normal sinus rhythm Normal ECG When compared with ECG of 03-JUN-2012 16:38, No significant change was found Confirmed by MD Mirtha, Cali ([id number]) on 06/04/2012 1:38:26 PM MUSE SYSTEM 06/04/2012 6:07 AM EDT 06/04/2012 1:38 PM EDT Unknown ECG ORDERABLES Performing Organization Address City/[facility]/ZIP Co de Phone Number MUSE SYSTEM * (ABNORMAL) BMP w/fasting Glucose (06/04/2012 6:05 AM EDT) [facility] Glucose Fasting 185(H) 65 - 99 mg/dL [...] intervals supplied above were not validated at [facility]. Results from pediatric patients should be interpreted [...] Lab Kathie Cotter MD CHEMISTRY ORDERABLES [facility] * (ABNORMAL) LDL CHOLESTEROL, DIRECT (06/04/2012 4:45 AM EDT) LDL Cholesterol, Direct 108(H) <=99 mg/dL [facility] Comment: The National Cholesterol Education Program (NCEP) has set the following guidelines for LDL Cholesterol: Reference range: ?? Optimal: ?<100 mg/dL ?? Near Optimal/Above Optimal: ?? 100-129 mg/dL ?? Borderline high: ?130-159 mg/dL ?? High: ? 160-189 mg/dL ?? Very high: ?>kd=098 mg/dL RACHEL 2001: 285(19):5631-9577 Blood specimen (specimen) 06/04/2012 4:45 AM EDT [...] Absolute 0.02 0.00 - 0.05 x10(3)/mcL [facility] Blood specimen (specimen) 06/04/2012 4:45 AM EDT 06/04/2012 4:55 AM EDT Kathie Cotter MD HEMATOLOGY ORDERABLE S Performing Organization Address [facility] de Phone Number [facility] * Alkaline Phosphatase (06/04/2012 4:45 AM EDT) Alkaline Phosphatase 53 40 - 120 unit/L [facility] Blood specimen (specimen) 06/04/2012 4:45 AM EDT 06/04/2012 4:55 AM EDT Narrative Resulting Agency Comment Spec In Lab Kathie Cotter MD CHEMISTRY ORDERABLES Performing Organization Address [facility] de Phone Number [facility] * Alanine Aminotransferase (06/04/2012 4:45 AM EDT) Alanine Aminotransferase 31 0 - 55 unit/L [facility] Blood specimen (specimen) 06/04/2012 4:45 AM EDT 06/04/2012 4:55 AM EDT Narrative Resulting Agency Comment Spec In Lab Kathie Cotter MD CHEMISTRY ORDERABLES Performing Organization Address [facility] Co de Phone Number [facility] * Aspartate Aminotransferase (06/04/2012 4:45 AM EDT) Aspartate Aminotransferase 31 0 - 39 unit/L [facility] Blood specimen (specimen) 06/04/2012 4:45 AM EDT 06/04/2012 4:55 AM EDT Narrative Resulting Agency Comment Spec In Lab Kathie Cotter MD CHEMISTRY ORDERABLES Performing Organization Address [facility] de Phone Number [facility] * (ABNORMAL) Hemoglobin A1c (06/04/2012 4:45 AM EDT) [facility] Hemoglobin A1c 6.5(H) 4.3 - 6.1 % [facility] Estimated Average Glucose 140 mg/dL [facility] Comment: eAG equivalents for HbA1c [...] into estimated average glucose values. ??Diabetes Care 2008:31(8):7302-5686. Blood specimen (specimen) 06/04/2012 4:45 AM EDT 06/04/2012 4:55 AM EDT Narrative Resulting Agency Comment Spec In Lab Kathie Cotter MD CHEMISTRY ORDERABLES Performing Organization Address [facility] Co de Phone Number [facility] * (ABNORMAL) Lipid panel (fasting) (06/04/2012 4:45 AM EDT) [facility] Cholesterol, Total 186 <=199 mg/dL [facility] Comment: Recommendations of the NCEP Adult Treatment Panel for the following risk cutoff thresholds for the [place] population: Desirable: <200 mg/dL Borderline High: 200-239 mg/dL High: > or = 240 mg/dL Triglyceride 412(H) <=149 mg/dL [facility] Comment: Reference Range: Normal triglycerides: ??<150 mg/dL Borderline high: ??150-199 mg/dL High: ??200-499 mg/dL Very high: ??>si=640 mg/dL RACHEL 2001; 285(19):1635-3684 HDL Cholesterol 25(L) >=40 mg/dL [facility] Comment: Reference range: ??Low HDL: ?? < 40 mg/dL ??Normal: ?40-60 mg/dL ??Desirable: > 60 mg/dL RACHEL 2001; 285(19):1338-8051 LDL Cholesterol Not Calculated <=99 mg/dL [facility] Comment: Since a calculated LDL value is not valid for triglycerides greater than 400 mg/dl, a direct LDL determination is performed instead. Reference range: ?? Optimal: ?<100 mg/dL ?? Near Optimal/Above Optimal: ?? 100-129 mg/dL ?? Borderline high: ?130-159 mg/dL ?? High: ? 160-189 mg/dL ?? Very high: ?>zd=233 mg/dL RACHEL 2001: 285(19):8346-8089 Cholesterol/HDL Ratio 7.4 ratio [facility] Comment: A Cholesterol to HDL ratio below 4:1 is desirable. ??Studies suggest that increased CAD risk occurs at ratios above 5 for females and above 6 for men. ? [place] Heart Association ??(http://www.americanheart.org) ? Pallavi Int Med, 1994; 121:641 ? AM J Med, 1998; 105(1A):48S Blood specimen (specimen) 06/04/2012 4:45 AM EDT 06/04/2012 4:55 AM EDT Narrative Resulting Agency Comment Spec In Lab Kathie Cotter MD CHEMISTRY ORDERABLES Performing Organization Address [facility] de Phone Number [facility] * (ABNORMAL) Cardiac Enzymes (06/04/2012 4:45 AM EDT) Troponin-T 0.07(H) <=0.03 ng/mL [facility] Comment: 0.03 ng/mL: Represents the 99th [...] redefinition of myocardial infarction. Journal of the [place] College of Cardiology 2000; 36: 959-969] Creatine Kinase 150 0 - 200 unit/L [facility] Comment:result rechecked-[facility] Blood specimen (specimen) 06/04/2012 4:45 AM EDT 06/04/2012 4:55 AM EDT Narrative Resulting Agency Comment Spec In Lab Kathie Cotter MD CHEMISTRY ORDERABLES Performing Organization Address [facility] Co de Phone Number [facility] * CBC (with Diff) (06/04/2012 4:45 AM EDT) White Blood Cell 6.4 4.0 - 10.0 x10(3)/mcL [facility] Red Blood Cell 4.78 4.63 - 6.08 x10(6)/mcL [facility] Hemoglobin 14.6 13.7 - 17.5 gm/dL [facility] Hematocrit 42.7 40.0 - 51.0 % [facility] Mean Cell Volume 89.3 79.0 - 92.0 fL [facility] Mean Cell Hemoglobin 30.5 25.6 - 32.2 pg [facility] Mean Cell Hemoglobin Concentration 34.2 32.0 - 36.5 gm/dL [facility] Platelet 154 145 - 370 x10(3)/mcL [facility] RDW Standard Deviation 41.0 35.0 - 46.0 fL [facility] RDW coefficient of variation 12.7 10.9 - 14.4 % [facility] Mean Platelet Volume 10.1 9.0 - 12.0 fL [facility] Blood specimen (specimen) 06/04/2012 4:45 AM EDT 06/04/2012 4:55 AM EDT Narrative Resulting Agency Comment Spec In Lab Kathie Cotter MD HEMATOLOGY ORDERABLE S Performing Organization Address [facility]/ZIP Co de Phone Number [facility] * POCT GLUCOSE (06/03/2012 9:31 PM EDT) Glucose, POC 163 60 - 199 mg/dL [facility] Comment: Supplemental ranges: <110 mg/dL before meals <200 mg/dL all other times of the day Blood specimen (specimen) 06/03/2012 9:31 PM EDT 06/03/2012 9:31 PM EDT Kathie Cotter MD POINT OF CARE TEST O RDERABLES Performing Organization Address City/[facility]/ZIP Co de Phone Number [facility] * POCT GLUCOSE (06/03/2012 6:10 PM EDT) Glucose, POC 97 60 - 199 mg/dL [facility] Comment: Supplemental ranges: <110 mg/dL before meals <200 mg/dL all other times of the day Blood specimen (specimen) 06/03/2012 6:10 PM EDT 06/03/2012 6:10 PM EDT Kathie Cotter MD POINT OF CARE TEST O RDERABLES Performing Organization Address [facility] de Phone Number [facility] * EKG 12 Lead (06/03/2012 4:38 PM EDT) Pathologist [facility] Ventricular rate 74 BPM MUSE SYSTEM Atrial Rate 74 BPM MUSE SYSTEM P-R Interval 150 ms MUSE SYSTEM QRS Duration 92 ms MUSE SYSTEM Q-T Interval 372 ms MUSE SYSTEM QTC Calculated (Bezet) 412 ms MUSE SYSTEM Calculated P [place] 46 degrees MUSE SYSTEM Calculated R [place] 25 degrees MUSE SYSTEM Calculated T [place] 29 degrees MUSE SYSTEM INTERPRETATION Normal sinus rhythm Normal ECG When compared with ECG of 18-JAN-2010 07:42, No significant change was found Confirmed by MD Mirtha, Cali ([id number]) on 06/04/2012 7:52:23 AM MUSE SYSTEM 06/03/2012 4:38 PM EDT 06/04/2012 7:52 AM EDT Kathie Cotter MD ECG ORDERABLES Performing Organization Address [facility] de Phone Number MUSE SYSTEM * Cardiac Enzymes (06/03/2012 4:00 PM EDT) [facility] Troponin-T <0.03 <=0.03 ng/mL [facility] Comment: 0.03 ng/mL: Represents the [...] redefinition of myocardial infarction. Journal of the [place] College of Cardiology 2000; 36: 959-969] Creatine Kinase 41 0 - 200 unit/L [facility] Blood specimen (specimen) 06/03/2012 4:00 PM EDT 06/03/2012 4:12 PM EDT Narrative Resulting Agency Comment Spec In Lab Kathie Cotter MD CHEMISTRY ORDERABLES Performing Organization Address City/[facility]/ZIP Co de Phone Number [facility] * POCT GLUCOSE (06/03/2012 11:11 AM EDT) [facility] Glucose, POC 147 60 - 199 mg/dL [facility] Comment: Supplemental ranges: <110 mg/dL before meals <200 mg/dL all other times of the day Blood specimen (specimen) 06/03/2012 11:11 AM EDT 06/03/2012 11:11 AM EDT Kathie Cotter MD POINT OF CARE TEST O RDERABLES Performing Organization Address [facility] Co de Phone Number [facility] documented in this encounter Visit Diagnoses Not on filedocumented in this encounter Administered Medications Inactive Administered Medications - up to 3 most recent administrations Medication Order MAR Action Action Date Dose Rate Site adenosine 90 mg in sodium chloride 0.9% 90 mL infusion (COOKER SODA) Intravenous, CONTINUOUS PRN, Starting on Martha 06/03/12 at 1511, Until Martha 06/03/12 at 1734, Cath (Intra-Procedure), Routine New Bag 06/03/2012 3:11 PM EDT 140 mcg/kg/min 933.2 mL/hr aspirin EC tablet 81 mg 81 mg, Oral, DAILY, First dose on Thu06/04/12 at 0900, Until Discontinued, Routine Given 06/04/2012 8:38 AM EDT 81 mg bivalirudin (ANGIOMAX) 250 mg in sodium chloride 0.9% 50 mL infusion (COOKER SODA) Intravenous, CONTINUOUS PRN, Starting on Martha 06/03/12 [...] in sodium chloride 0.9% 90 mL infusion (COOKER SODA) (CANCELED) Intravenous, CONTINUOUS PRN, Starting on Martha 06/03/12 at 1511, Until Martha 06/03/12 at 1734, Cath (Intra-Procedure), Routine 1511 (New Bag - Provider: Dustin Carlton Jr.)1521 (Stopped - Provider: Tawanda Agarwal, VERO) bivalirudin (ANGIOMAX) 250 mg in sodium chloride 0.9% 50 mL infusion (COOKER SODA) (CANCELED) Intravenous, CONTINUOUS PRN, Starting on Martha [...] MD) documented in this encounter Care Teams Linen Worker Relationship Specialty Start Date End Date Sarita Lim MD [address] [place] [address] PCP - General 07/16/10 documented as of this encounter
--- OUTSIDE RECORDS SUMMARY | 2024-08-05 17:23 | XMS_ITS | Encounter Summary ---
Author Organization [facility] Address [facility] [place] [address] Care Team Providers Care Coding Auditor Name Role Phone Sarita Chew MD Primary Care Provider [phone] Encounter Details Date Type Department Care Team (Latest Contact Info) Description 06/03/2012 5:57 PM EDT - 06/04/2012 10:33 AM EDT Hospital Encounter [place] [id number] Kathie Cotter MD [facility] [place] [address] CAD (coronary artery disease), non-obstructive; S/P coronary [...] appointments: During 8am-5pm Thursday through Thursday call [phone] to speak with a nurse in the cardiology clinic All other times call [phone] and ask to speak to the market risk specialist apparel fashion designer. Return to work: One week Driving: No driving for 48 hours after catheterization. Follow up Appointments: PCP: SARITA CHEW MD , Call for appointment in 1-2 weeks. Technical Customer Support Specialist: Dr Leyva, You should be seen in 3-4 weeks for follow up. Please call for appointment * Attachments The following attachments cannot be sent through Care Everywhere. * PERCUTANEOUS CORONARY INTERVENTION: WHAT TO EXPECT AT HOME (HONDURAN) * CHEST PAIN (ANGINA): AFTER YOUR VISIT (HONDURAN) documented in this encounter Medications at Time [...] NSR Meds: Current facility-administered medications ordered in [facility] Medication Dose Route Frequency Provider Last [...] in sodium chloride 0.9% 50 mL infusion (HAND STEMMER) Intravenous Continuous PRN Kathie Cotter MD Last Dose: 194.3 mg/hr at 06/03/12 1509 ??? DISCONTD: adenosine 90 mg in sodium chloride 0.9% 90 mL infusion (HAND STEMMER) Intravenous Continuous PRN Kathie Cotter MD Last [...] Family History: Father-, pre-mature CAD (age 46), [place], CABG Uncle +CAD Mother, DM, HTN. HLP [...] Seen by Dr Leyva in March; [facility] +JACINDA candidate. 2. HTN, stable, [...] 06/04/2012 10:04 PM EDTAssociated Order(s): SCAN DOC: HEATING OPERATORS ENGINEER * Provider, Scanning - 06/03/2012 4:39 PM [...] to the outpatient cardiac rehabilitation program at [facility] was discussed. A referral will be [...] appointments: During 8am-5pm Thursday through Thursday call [phone] to speak with a nurse in the cardiology clinic All other times call [phone] and ask to speak to the market risk specialist apparel fashion designer. Return to work: One week Driving: No driving for 48 hours after catheterization. Follow up Appointments: PCP: SARITA CHEW MD , Call for appointment in 1-2 weeks. Technical Customer Support Specialist: Dr Leyva, You should be seen in 3-4 weeks for follow up. Please call for appointment General Instructions None Future Appointments and Orders Future Appointments: Provider: Department: Dept Phone: Center: 06/04/2012 4:45 PM Echo Inpatient Add-On [facility] Non-Inv Card Lab [phone] None Provider Contact Information: Dr. Kathie Stephen Section of Cardiology [facility] [phone] Discharge References/Attachments: Discharge References/Attachments None Signed: Bryan Stephen MD DATE: 06/04/2012 * Miscellaneous - Provider, Scanning - 06/03/2012 11:02 AM EDT documented in this encounter Plan of Treatment Not on file documented as of this encounter Procedures Procedure Name Priority Date/Time Associated Diagnosis Comments CARDIAC CATHETERIZATION Routine 06/07/20 2:15 PM EDT HEATING OPERATORS ENGINEER SCAN 06/04/2012 10:04 PM EDT ECHOCARDIOGRAM TRANSTHORACIC [...] CAD (coronary artery disease), non-obstructive CARDIAC ENZYMES ([facility]) STAT 06/03/2012 4:00 PM EDT CARDIAC CATHETERIZATION 06/03/20 12 2:02 PM EDT CP POCT GLUCOSE Routine 06/03/2012 11:11 AM EDT documented in this encounter Results * Cardiac Catheterization (06/07/2012 2:15 PM EDT) Anatomical Region Laterality Modality Other Narrative 06/03/2012 4:39 PM EDT Procedure Note Provider, Scanning - 06/03/2012 4:39 PM EDT Kathie Cotter MD CARDIAC CATH ORDERAB LES * SCAN DOC: HEATING OPERATORS ENGINEER (06/04/2012 10:04 PM EDT) Anatomical Region Laterality Modality Other Narrative 06/06/2012 2:36 AM EDT Procedure Note Provider, Scanning - 06/04/2012 10:04 PM EDT Scanning Provider MEDIA MGR SCAN EXT O RDR/RSLT * Echo Transthoracic (Complete) (06/04/2012 8:57 AM EDT) [facility] Signature EF 60 HEARTBrightContext SYSTEM Anatomical Region Laterality Modality Other 06/04/2012 Narrative 06/04/2012 9:13 AM EDT Procedure: ? Transthoracic Echocardiogram Patient: ? COELHO ROMEO A ?(Age): 1965(46) Med Rec#: ?[id number] ? Sex: ?M ? Site Loc: ?[facility] ? Ht / Wt: ??176(cm)/122(kg) Pt. Loc: ? Adult Floor ?BSA: ?2.44 Study Date: ?06/04/2012 ? Pt. Type: Inpatient Tape: ? Referring: Kathie Cotter Railroad Auditor: Khoi Gaines [facility] [[email or web address] Railroad Auditor 2: Mason Duron ([id number]) Diagnosis: ??Chest pain (786.50) CPT Code(s): ??Echo Full (83979), ??Spectral Doppler (12426), ??Color Doppler (91712), ??Definity ([id number]), Indication(s): ??Chest Pain Rhythm: HR ?BP 78 [...] ? Mid-Inferior ?Normal ? Mid-Inferoseptal ?Normal ? [place]-Septal ? Normal ? [place]-Anterior ? Normal ? [place]-Lateral ?Normal ? [place]-Inferior ? Normal ? [place]-Tip ?Normal ? Chambers ?Value ?Units (Range) ? [...] Patient: LAQUITA Pop (Age): 1965(46) Med Rec#: [id number] Sex: M Site Loc: [facility] Ht / Wt: 176(cm)/122(kg) Pt. Loc: Adult Floor BSA: 2.44 Study Date: 06/04/2012 Pt. Type: Inpatient Tape: Referring: Kathie Cotter Railroad Auditor: Khoi Gaines [facility] [[email or web address]] Railroad Auditor 2: Mason Duron ([id number]) Diagnosis: Chest pain (786.50) CPT Code(s): Echo Full (92698), Spectral Doppler (65840), Color Doppler (71276), Definity ([id number]), Indication(s): Chest Pain Rhythm: HR BP 78 [...] Normal Mid-Posterolateral Normal Mid-Inferior Normal Mid-Inferoseptal Normal [place]-Septal Normal [place]-Anterior Normal [place]-Lateral Normal [place]-Inferior Normal [place]-Tip Normal Chambers Value Units (Range) LV EF [...] * POCT GLUCOSE (06/04/2012 7:06 AM EDT) [facility] Glucose, POC 183 60 - 199 mg/dL [facility] Comment: Supplemental ranges: <110 mg/dL before meals <200 mg/dL all other times of the day Blood specimen (specimen) 06/04/2012 7:06 AM EDT 06/04/2012 7:06 AM EDT Kathie Cotter MD POINT OF CARE TEST O RDERABLES Performing Organization Address [facility] de Phone Number [facility] * EKG 12-LEAD (06/04/2012 6:07 AM EDT) [facility] Ventricular rate 77 BPM MUSE SYSTEM Atrial Rate 77 BPM MUSE SYSTEM P-R Interval 150 ms MUSE SYSTEM QRS Duration 92 ms MUSE SYSTEM Q-T Interval 372 ms MUSE SYSTEM QTC Calculated (Bezet) 420 ms MUSE SYSTEM Calculated P [place] 30 degrees MUSE SYSTEM Calculated R [place] 37 degrees MUSE SYSTEM Calculated T [place] 30 degrees MUSE SYSTEM INTERPRETATION Normal sinus rhythm Normal ECG When compared with ECG of 03-JUN-2012 16:38, No significant change was found Confirmed by MD Mirtha, Cali ([id number]) on 06/04/2012 1:38:26 PM MUSE SYSTEM 06/04/2012 6:07 AM EDT 06/04/2012 1:38 PM EDT Unknown ECG ORDERABLES Performing Organization Address [facility] Co de Phone Number MUSE SYSTEM * (ABNORMAL) BMP w/fasting Glucose (06/04/2012 6:05 AM EDT) [facility] Glucose Fasting 185(H) 65 - 99 mg/dL [...] of Diabetes Mellitus, Position Statement from the Canadian Diabetes Association. ??Diabetes Care, Volume 33, Supplement 1, Aug 2009 Blood Urea Nitrogen 10 10 - 20 mg/dL [facility] Creatinine 0.82 0.80 - 1.50 mg/dL [facility] Comment: Please note that the pediatric reference intervals supplied above were not validated at [facility]. Results from pediatric patients should be interpreted [...] Cotter MD CHEMISTRY ORDERABLES [facility] * (ABNORMAL) LDL CHOLESTEROL, DIRECT (06/04/2012 4:45 AM EDT) LDL Cholesterol, Direct 108(H) <=99 mg/dL [facility] Comment: The National Cholesterol Education Program (NCEP) has set the following guidelines for LDL Cholesterol: Reference range: ?? Optimal: ?<100 mg/dL ?? Near Optimal/Above Optimal: ?? 100-129 mg/dL ?? Borderline high: ?130-159 mg/dL ?? High: ? 160-189 mg/dL ?? Very high: ?>co=846 mg/dL RACHEL 2001: 28519):[id number] Blood specimen (specimen) 06/04/2012 4:45 AM EDT [...] Gran Absolute 0.02 0.00 - 0.05 x10(3)/mcL [facility] Blood specimen (specimen) 06/04/2012 4:45 AM EDT 06/04/2012 4:55 AM EDT Kathie Cotter MD HEMATOLOGY ORDERABLE S Performing Organization Address [facility] de Phone Number [facility] * Alkaline Phosphatase (06/04/2012 4:45 AM EDT) Alkaline Phosphatase 53 40 - 120 unit/L [facility] Blood specimen (specimen) 06/04/2012 4:45 AM EDT 06/04/2012 4:55 AM EDT Narrative Resulting Agency Comment Spec In Lab Kathie Cotter MD CHEMISTRY ORDERABLES Performing Organization Address [facility] de Phone Number [facility] * Alanine Aminotransferase (06/04/2012 4:45 AM EDT) Alanine Aminotransferase 31 0 - 55 unit/L [facility] Blood specimen (specimen) 06/04/2012 4:45 AM EDT 06/04/2012 4:55 AM EDT Narrative Resulting Agency Comment Spec In Lab Kathie Cottre MD CHEMISTRY ORDERABLES Performing Organization Address [facility] de Phone Number [facility] * Aspartate Aminotransferase (06/04/2012 4:45 AM EDT) Aspartate Aminotransferase 31 0 - 39 unit/L [facility] Blood specimen (specimen) 06/04/2012 4:45 AM EDT 06/04/2012 4:55 AM EDT Narrative Resulting Agency Comment Spec In Lab Kathie Cotter MD CHEMISTRY ORDERABLES Performing Organization Address [facility] Co de Phone Number [facility] * (ABNORMAL) Hemoglobin A1c (06/04/2012 4:45 AM EDT) Hemoglobin A1c 6.5(H) 4.3 - 6.1 % [facility] Estimated Average Glucose 140 mg/dL [facility] Comment: eAG equivalents for HbA1c percentages: HbA1c(%) [...] into estimated average glucose values. ??Diabetes Care 2008:31(8):0835-7564. Blood specimen (specimen) 06/04/2012 4:45 AM EDT 06/04/2012 4:55 AM EDT Narrative Resulting Agency Comment Spec In Lab Kathie Cotter MD CHEMISTRY ORDERABLES Performing Organization Address [facility] Co de Phone Number [facility] * (ABNORMAL) Lipid panel (fasting) (06/04/2012 4:45 AM EDT) [facility] Cholesterol, Total 186 <=199 mg/dL [facility] Comment: Recommendations of the NCEP Adult Treatment Panel for the following risk cutoff thresholds for the [place] population: Desirable: <200 mg/dL Borderline High: 200-239 mg/dL High: > or = 240 mg/dL Triglyceride 412(H) <=149 mg/dL [facility] Comment: Reference Range: Normal triglycerides: ??<150 mg/dL Borderline high: ??150-199 mg/dL High: ??200-499 mg/dL Very high: ??>qy=210 mg/dL RACHEL 2001; 285(19):9475-6471 HDL Cholesterol 25(L) >=40 mg/dL [facility] Comment: Reference range: ??Low HDL: ?? < 40 mg/dL ??Normal: ?40-60 mg/dL ??Desirable: > 60 mg/dL RACHEL 2001; 285(19):6554-2665 LDL Cholesterol Not Calculated <=99 mg/dL [facility] Comment: Since a calculated LDL value is not valid for triglycerides greater than 400 mg/dl, a direct LDL determination is performed instead. Reference range: ?? Optimal: ?<100 mg/dL ?? Near Optimal/Above Optimal: ?? 100-129 mg/dL ?? Borderline high: ?130-159 mg/dL ?? High: ? 160-189 mg/dL ?? Very high: ?>lz=285 mg/dL RACHEL 2001: 285(19):1782-1915 Cholesterol/HDL Ratio 7.4 ratio [facility] Comment: A Cholesterol to HDL ratio below 4:1 is desirable. ??Studies suggest that increased CAD risk occurs at ratios above 5 for females and above 6 for men. ? Canadian Heart Association ??(http://www.americanheart.org) ? Pallavi Int Med, 1994; 121:641 ? AM J Med, 1998; 105(1A):48S Blood specimen (specimen) 06/04/2012 4:45 AM EDT 06/04/2012 4:55 AM EDT Narrative Resulting Agency Comment Spec In Lab Kathie Cotter MD CHEMISTRY ORDERABLES Performing Organization Address [facility] de Phone Number [facility] * (ABNORMAL) Cardiac Enzymes (06/04/2012 4:45 AM EDT) Troponin-T 0.07(H) <=0.03 ng/mL [facility] Comment: 0.03 ng/mL: Represents the [...] consensus document of the Joint Society of Cardiology/Canadian College of Cardiology Committee for the redefinition of myocardial infarction. Journal of the Canadian College of Cardiology 2000; 36: 959-969] Creatine Kinase 150 0 - 200 unit/L [facility] Comment:result rechecked-[facility] Blood specimen (specimen) 06/04/2012 4:45 AM EDT 06/04/2012 4:55 AM EDT Narrative Resulting Agency Comment Spec In Lab Kathie Cotter MD CHEMISTRY ORDERABLES Performing Organization Address [facility] Co de Phone Number [facility] * CBC (with Diff) (06/04/2012 4:45 AM EDT) White Blood Cell 6.4 4.0 - 10.0 x10(3)/mcL [facility] Red Blood Cell 4.78 4.63 - 6.08 x10(6)/mcL [facility] Hemoglobin 14.6 13.7 - 17.5 gm/dL [facility] MILLENNIUM Hematocrit 42.7 40.0 - 51.0 % [facility] Mean Cell Volume 89.3 79.0 - 92.[address] [facility] Mean Cell Hemoglobin 30.5 25.6 - 32.2 pg [facility] Mean Cell Hemoglobin Concentration 34.2 32.0 - 36.5 gm/dL [facility] MILL[facility] Platelet 154 145 - 370 x10(3)/mcL [facility] MILL[facility] RDW Standard Deviation 41.0 35.0 - 46.[address] [facility] MILL[facility] RDW coefficient of variation 12.7 10.9 - 14.4 % [facility] Mean Platelet Volume 10.1 9.0 - 12.0 fL [facility] Blood specimen (specimen) 06/04/2012 4:45 AM EDT 06/04/2012 4:55 AM EDT Narrative Resulting Agency Comment Spec In Lab Kathie Cotter MD HEMATOLOGY ORDERABLE S Performing Organization Address [facility] Co de Phone Number [facility] * POCT GLUCOSE (06/03/2012 9:31 PM EDT) Glucose, POC 163 60 - 199 mg/dL [facility] Comment: Supplemental ranges: <110 mg/dL before meals <200 mg/dL all other times of the day Blood specimen (specimen) 06/03/2012 9:31 PM EDT 06/03/2012 9:31 PM EDT Kathie Cotter MD POINT OF CARE TEST O RDERABLES Performing Organization Address [facility] Co de Phone Number [facility] * POCT GLUCOSE (06/03/2012 6:10 PM EDT) Glucose, POC 97 60 - 199 mg/dL [facility] Comment: Supplemental ranges: <110 mg/dL before meals <200 mg/dL all other times of the day Blood specimen (specimen) 06/03/2012 6:10 PM EDT 06/03/2012 6:10 PM EDT Kathie Cotter MD POINT OF CARE TEST O RDERABLES Performing Organization Address [facility] Co de Phone Number [facility] * EKG 12 Lead (06/03/2012 4:38 PM EDT) Ventricular rate 74 BPM MUSE SYSTEM Atrial Rate 74 BPM MUSE SYSTEM P-R Interval 150 ms MUSE SYSTEM QRS Duration 92 ms MUSE SYSTEM Q-T Interval 372 ms MUSE SYSTEM QTC Calculated (Bezet) 412 ms MUSE SYSTEM Calculated P [place] 46 degrees MUSE SYSTEM Calculated R [place] 25 degrees MUSE SYSTEM Calculated T [place] 29 degrees MUSE SYSTEM INTERPRETATION Normal sinus rhythm Normal ECG When compared with ECG of 18-JAN-2010 07:42, No significant change was found Confirmed by MD Shannon Robert ([id number]) on 06/04/2012 7:52:23 AM MUSE SYSTEM 06/03/2012 4:38 PM EDT 06/04/2012 7:52 AM EDT Kathie Cotter MD ECG ORDERABLES Performing Organization Address [facility] de Phone Number MUSE SYSTEM * Cardiac Enzymes (06/03/2012 4:00 PM EDT) [facility] Troponin-T <0.03 <=0.03 ng/mL [facility] Comment: 0.03 ng/mL: Represents the [...] consensus document of the Joint Society of Cardiology/Canadian College of Cardiology Committee for the redefinition of myocardial infarction. Journal of the Canadian College of Cardiology 2000; 36: 959-969] Creatine Kinase 41 0 - 200 unit/L [facility] Blood specimen (specimen) 06/03/2012 4:00 PM EDT 06/03/2012 4:12 PM EDT Narrative Resulting Agency Comment Spec In Lab Kathie Cotter MD CHEMISTRY ORDERABLES Performing Organization Address City/[facility]/ZIP Co de Phone Number [facility] * POCT GLUCOSE (06/03/2012 11:11 AM EDT) Glucose, POC 147 60 - 199 mg/dL [facility] Comment: Supplemental ranges: <110 mg/dL before meals <200 mg/dL all other times of the day Blood specimen (specimen) 06/03/2012 11:11 AM EDT 06/03/2012 11:11 AM EDT Kathie Cotter MD POINT OF CARE TEST O RDERABLES Performing Organization Address [facility] Co de Phone Number TANG NORTON documented in this encounter Visit Diagnoses Diagnosis CAD (coronary artery disease), non-obstructive- Primary Coronary atherosclerosis of unspecified type of vessel, [place] or graft S/P coronary artery stent placement [...] sodium chloride 0.9% 90 mL infusion (HAND STEMMER) (CANCELED) Intravenous, CONTINUOUS PRN, Starting on Martha 06/03/12 at 1511, Until Martha 06/03/12 at 1734, Cath (Intra-Procedure), Routine 1511 (New Bag - Provider: Dustin Carlton Jr.)1521 (Stopped - Provider: Tawanda Agarwal RN) bivalirudin (ANGIOMAX) 250 mg in sodium chloride 0.9% 50 mL infusion (HAND STEMMER) (CANCELED) Intravenous, CONTINUOUS PRN, Starting on Martha [...] MD) documented in this encounter Care Teams Coding Auditor Relationship Specialty Start Date End Date Sarita Chew MD [address] [place] [address] PCP - General 07/16/10 documented as of this encounter
--- OUTSIDE RECORDS SUMMARY | 2024-08-05 17:23 | XMS_ITS | Encounter Summary ---
Author Organization [facility] Address [facility] [place] [address] Care Team Providers Care Loan Supervisor Name Role Phone Coni Lim MD Primary Care Provider [phone] Encounter Details Date Type Department Care Team (Late st Contact Info) Description 06/04/2012 Orders Only Cardiology at [address] [phone] Antonio Rivas MD [facility] [place] [address] CAD (coronary artery disease) (Primary Dx) Social [...] Coronary atherosclerosis of unspecified type of vessel, [place] or graft documented in this encounter Care Teams Loan Supervisor Relationship Specialty Start Date End Date Coni Lim MD [address] [place], [place] [address] PCP - General 07/16/10 documented as of this encounter
--- OUTSIDE RECORDS SUMMARY | 2024-08-05 17:23 | XMS_ITS | Encounter Summary ---
[place] [address] Care Team Providers Care Summer Law Clerk Name Role Phone Coni Lim MD Primary Care Provider [phone] Reason for Visit * Reason Onset Date Comments Other 07/26/2013 PRE CATH WORK UP DIABETIC METFORMIN Encounter Details Date Type Department Care Team (Late st Contact Info) Description 07/26/2013 Telephone Cardiology at [address] [phone] Lana Damon Other (PRE CATH WORK UP [...] on filedocumented in this encounter Care Teams Summer Law Clerk Relationship Specialty Start Date End Date Coni Lim MD [address] [place] [address] PCP - General 07/16/10 documented as of this encounter
--- OUTSIDE RECORDS SUMMARY | 2024-08-05 17:23 | XMS_ITS | Encounter Summary ---
Author Organization [facility] Address [facility] [place] [address] Care Team Providers Care Coffee Plantation Worker Name Role Phone Coni Lim MD Primary Care Provider [phone] Encounter Details Date Type Department Care Team (Late st Contact Info) Description 06/14/2012 Orders Only Cardiology at [address] [phone] Bryan Iverson MD [facility] CARDIOLOGY [place] [id number] Social History Tobacco Use Types Packs/Day Years [...] MD IM FILM LIBRARY ORD ERABLES RAD [address] [address] documented in this encounter Visit Diagnoses Not on filedocumented in this encounter Care Teams Coffee Plantation Worker Relationship Specialty Start Date End Date Coni Lim MD [address] [place] [address] PCP - General 07/16/10 documented as of this encounter
--- OUTSIDE RECORDS SUMMARY | 2024-08-05 17:23 | XMS_ITS | Encounter Summary ---
Author Organization [facility] [place] [address] Care Team Providers Care Superintendent Warehouse Name Role Phone Coni Lim MD Primary Care Provider [phone] Reason for Visit * Reason Comments Chest Pain Encounter Details Date Type Department Care Team (Late st Contact Info) Description 05/13/2011 11:30 AM EDT Procedure visit [facility] [address] [place] [address] Rafael Nieto Jr., MD [address] [place] [id number] Chest pain (Primary Dx) Social History Tobacco [...] Test- Final Report Romeo Coe : 1965 [facility], [address] [facility] [address] Primary Physician: CONI LIM MD Cc David [...] unspecified documented in this encounter Care Teams Superintendent Warehouse Relationship Specialty Start Date End Date Coni Lim MD [address] [place] [address] PCP - General 07/16/10 documented as of this encounter
--- OUTSIDE RECORDS SUMMARY | 2024-08-05 17:23 | XMS_ITS | Encounter Summary ---
Author Organization [facility] Address [facility] [place] [address] Care Team Providers Care Jammer Operator Name Role Phone Coni Lim MD Primary Care Provider [phone] Encounter Details Date Type Department Care Team (Late st Contact Info) Description 07/26/2013 Orders Only Cardiology at [address] [phone] Taylor Dickinson, PA [facility] [place] [address] ASCVD (arteriosclerotic cardiovascular disease) (Primary Dx) Social [...] disease documented in this encounter Care Teams Jammer Operator Relationship Specialty Start Date End Date Coni Lim MD [address] [place] [address] PCP - General 07/16/10 documented as of this encounter
--- OUTSIDE RECORDS SUMMARY | 2024-08-05 17:23 | XMS_ITS | Encounter Summary ---
Author Organization [facility] Address [facility] [place] [address] Care Team Providers Care Campus Receptionist Name Role Phone Coni Lim MD Primary Care Provider [phone] Encounter Details Date Type Department Care Team (Late st Contact Info) Description 06/14/2012 Orders Only Cardiology at [address] [phone] Bryan Iverson MD [facility] CARDIOLOGY [place] [id number] Social History Tobacco Use Types Packs/Day Years [...] EDT) 06/14/2012 1:26 PM EDT Narrative [facility] [place] - 03/13/2014 6:59 PM EDT This is a non-reportable exam. Procedure Note Shukri Mckee - 03/13/2014 This is a non-reportable exam. Bryan Iverson MD IM FILM LIBRARY ORD ERABLES RAD [address] [employer] [place] [address] documented in this encounter Visit Diagnoses Not on filedocumented in this encounter Care Teams Campus Receptionist Relationship Specialty Start Date End Date Coni Lim MD [address] [place] [address] PCP - General 07/16/10 documented as of this encounter
--- OUTSIDE RECORDS SUMMARY | 2024-08-05 17:24 | XMS_ITS | Encounter Summary ---
Author Organization [facility] Address [address] [place] [address] Care Team Providers Care Manifest/Order Organizer Print Orders Name Role Phone Sarita Lim MD Primary Care Provider [phone] Encounter Details Date Type Department Care Team (Latest Contact Info) Description 03/15/2015 1:06 EDT - 03/16/2015 12:40 EDT Hospital Encounter [facility] Medical Intensive Care Unit [address], [place] [id number] Landon Dumont MD [address] [place] [phone] Venu Veliz MD [address] [place] [address] CVA (cerebral vascular accident) (CMS-HCC) ([facility]) (Primary Dx); tPA/rtPA given at another [...] EDT documented in this encounter Functional Status * Are you deaf or do you have serious difficulty hearing? Answer Date of Assessment Author No 03/15/2015 0:00 EDT Feliz Alcantar * Are you blind or do you have serious difficulty seeing, even when wearing glasses? Answer Date of Assessment Author No 03/15/2015 0:00 EDT Feliz Alcantar * Do you have serious difficulty walking or climbing stairs? (5 years old or older) Answer Date of Assessment Author No 03/15/2015 0:00 EDT Feliz Alcantar * Do you have difficulty dressing or bathing? (5 years old or older) Answer Date of Assessment Author No 03/15/2015 0:00 EDT Feliz Alcantar * Because of a physical, mental, or emotional condition, do you have difficulty doing errands alone such as visiting a doctor's office or shopping? (15 years old or older) Answer Date of Assessment Author No 03/15/2015 0:00 CASEYT Feliz Alcantar documented as of this encounter Mental Status * Because of a physical, mental, or emotional condition, do you have serious difficulty concentrating, remembering, or making decisions? (5 years old or older) Answer Entry Date Author No 03/15/2015 0:00 Feliz Cardona documented in this encounter Discharge Summaries * Venu Veliz MD - 03/16/2015 0856 EDT Neurology Discharge Summary Admission Date: 03/15/2015 Discharge Date: 03/16/2015 Admitting Diagnosis: Ischemic stroke Admitted from: Transfer from [facility] Principal/Final Diagnosis: Transient ischemic attack Additional Diagnoses: Hypertension Type 2 diabetes mellitus Hyperlipidemia Coronary artery disease Current tobacco smoking Suspected obstructive sleep apnea Hospital Course: Mr. Coelho is a 49-year-old right-handed male with a history of hypertension, hyperlipidemia, type 2 diabetes mellitus, coronary artery disease, and current tobacco smoking who presented to [facility] with acute onset right face arm and leg weakness after a transesophageal echocardiogram. Given the clinical diagnosis of ischemic stroke with (with a CT head that did notshow any evidence of hemorrhage), he was treated acutely with IV tPA within the time window and transferred to the [facility] for post-IV TPA ICU monitoring and [...] he previously had cardiac monitoring with his vascular sonographer, and has not had atrial fibrillation, so no cardiac monitoring was ordered after discharge. He has a neurologist (Dr. Negron) in [facility], and will be following up there [...] stroke related stenoses or occlusions: microvascular Modified Halsey Scale: 0: No symptoms Evidence of A-fib [...] at Discharge: MS: AAOx3, no language impairments hospital recruiter: PERRL, EOMI, sensation intact to light touch [...] at Discharge: Romeo Coelho Home Medication Instructions ANGELA:[id number] Printed on:03/16/15 0844 Medication Information aspirin 325 [...] as important follow-ups were discussed by this ghost writer with the patient on 03/16/2015. Patient [...] with your neurologist (03/21/15), Dr. Negron in [place] - Transient ischemic attack, neuro anatomically localizes [...] Mayorga MD Neurology Resident, PGY-3 Pager # [phone] (Pager [phone] after hours or on weekends) Attestation statement: I saw and examined the patient with the resident/fellow on 03/16/15. I agreewith the findings and plan of care documented in the resident's/fellow's note. The note has been edited prior to signing. Venu Veliz MD MSc Environmental Programs Manager [facility] Board certified Adult Neurology Adult Neurology, Neuro-Oncology and Neurophysiology [address] [place] [address], [phone] documented in this encounter Discharge Instructions * Appointments* Antonio Andersen - 03/16/2015 8:56 EDT Please follow-up with Dr. Edel Negron [facility]. [address], [address] [place] [address] Appointment is scheduled for Thursday, March 21 2015 at 3:00pm Please bring the CD containing imaging studies done while at [facility] documented in this encounter Medications at Time of Discharge buPROPion (WELLBUTRIN SR) 150 mg SR tablet [...] * Nery Townsend - 03/16/2015 1238 EDT SW Discharge Note: SW arranged transportation with [facility] transportation. They will pick up man Pt outside [facility] at 12:45. Medicare IM has been signed. Nery Townsend DIESEL ENGINE ASSEMBLER #[id number] * Nery Townsend - 03/16/2015 1058 EDT Initial Case Management/Social Work Assessment and Discharge Plan /Readmission Risk Assessment Physician working diagnosis: Mr. Romeo Coelho is a right handed 49 y.o.-ogxz-wfw-juuj has a pastmedical history of HTN (hypertension); HLD (hyperlipidemia); DMII (diabetes mellitus, type 2); CAD (coronary artery disease); Smoking; Depression; Fibromyalgia; and Gout. Patient (or designee) understanding of admission: Pt understands his admission Patient Contact Information: Pt's contact is his Dasia Coelho (Spouse) [phone] (H) [phone] (W) MEDICAL AND COMMUNITY SERVICES: Primary Care Provider: SARITA LIM MD (General) Specialists seen on a consistent basis: N/A Skilled home care services: N/A DME Provider: N/A Pharmacy: Alejandra Hawk in [facility] LIVING ARRANGEMENTS AND ACCESSIBILITY ISSUES: Apartment Are there any home access issues? No What in home social supports are available to the patient? Pt has support from his who is homewith Pt as she is also receiving disability. ADVANCED DIRECTIVES, POA &/or COLST IN PLACE: No CULTURAL, WORSHIP and/or LANGUAGE factors affecting health care/discharge planning:: [...] Yes,PAL working [facility]. Pt is now ready for DC. Post hospitalization Plan: Return to independent living New DME Requirements: No Initial plan discussed with: patient Nery Cary 03/16/2015 10:58 * Antonio Andersen - 03/16/2015 [...] collins full, visual acuity grossly normal, DERICK hospital recruiter III, IV, : EOMI with smooth pursuit [...] Radiology Imaging: CT head without contrast from [facility] was negative for intracranial hemorrhage [...] right-sided weakness s/p GLENNA procedure at an [facility]. CT from [facility] didn't demonstrate intracranial hemorrhage. Predominant [...] given disc with imaging done here at [facility] to bring to appointment F/u with primary care provider (Sarita Lim) with particular emphasis on smoking cessation Antonio Andersen, MS III [phone] * Gertrude Linda - 03/16/2015 0901 EDT [facility] Rehabilitation Therapy Acute Therapies [facility] Occupational Therapy Initial Evaluation/Discontinue Note Date of Service: 03/16/2015 Reason for Referral: Evaluate and treat Precautions: Activity as tolerated, Ambulate and Fall precautions SUBJECTIVE: It feels back to normal-in reference to strength in R-UE. Pain: No pain reported during the interview. OBJECTIVE: Patient Profile: Romeo Coelho is a right hand dominant 49 y.o. male admitted on 03/15/2015 secondary to [facility] ED- STROKE W/LYTICS- TO M4 434.91 CEREBR ART OCCL UNSPEC W INFARCT[ICD-9-CM] The patient lives at [address] [facility] [address] History of Present Illness/Injury: Per neuro H&P by Dr. Veliz on 03/15/15: Chief Complaint: Right-sided weakness HPI: Mr. Romeo Coelho is a right handed 49 y.o.-jurd-ppm-zmsl has a past medical history of HTN (hypertension); HLD (hyperlipidemia); DMII (diabetes mellitus, type 2); CAD (coronary artery disease); Smoking; Depression; Fibromyalgia; and Gout. Patient was transferred to from [facility] after administration of TPAfollowing sudden onset [...] normal tensive, patient was subsequently transferred to [facility] for higher level of care after [...] GOALS: Short Term Goals: - ?? - Snf Goals: - ?? - PLAN: Intervention: Discontinue occupational therapy at [facility]. Further Data: N/a Patient/Family Education: Discharge Planning Role of OT Safety Recommended Discharge Destination: Home with family Recommended Discharge Services: No occupational therapy follow-up services at this time Recommended Discharge Equipment: Patient has all equipment necessary Gertrued Linda OT Student, 03/16/2015, 9:01 COOKIE DAMON OT03/16/201512:46 Pager: [phone] Cosigned by Cookie Damon OT at 03/16/2015 12:49 EDT * Venu Veliz MD - 03/15/2015 3709 EDT Neurology Daily Progress Note Admit Date: [...] assessed CN II: visual collins full, PERRL hospital recruiter III, IV, : EOMI with smooth pursuit [...] MCV 89 PLT 151 BMP: Recent Labs 03/15/15151 NA 143 K 3.8 CL 109 CO2 [...] (will not provide if there is a HR CLERK hemorrhage). Code Status: Full Dispo: Likely home tomorrow Consults: None Rob Mayorga MD Neurology Resident, PGY-3 Pager # [phone] (Pager [phone] after hours or on weekends) Attestation statement: [...] his MRI today. Venu Veliz MD MSc Environmental Programs Manager [facility] Board certified Adult Neurology Adult Neurology, Neuro-Oncology and Neurophysiology [address] [facility], [id number] * Antonio Andersen - 03/15/2015 1308 EDT Neurology Daily Progress Note Admit Date: [...] afternoon following a GLENNA procedure at an [facility]. He was last seen with out deficits at around 3:30pm yesterday following the GLENNA. Two hours later, a nurse noted that he was having right facial droop and he was immediately brought to the ED at [facility] where a stat CT head was performed and did not demonstrate intracranial hemorrhage. He didn't have any contraindications and thus was given tPA and was subsequently transported here to [facility]. He says that he remembers his [...] He was brought to the ED at [facility] and it was presumed that he had [...] collins full, visual acuity grossly normal, DERICK hospital recruiter III, IV, : EOMI with smooth pursuit [...] Radiology Imaging: CT head without contrast from [facility] was negative for intracranial hemorrhage Assessment: Mr. Coelho is a 49yo male with a PMH significant for HTN, HLD, T2DM, CAD, current smoker, and past history of a CVA (2004) and recent TIA who presented with right-sided weakness s/p GLENNA procedure at an [facility]. CT from [facility] didn't demonstrate intracranial hemorrhage. Predominant right-sided motor symptoms suggest lesion in the left posterior limb of internal capsule, likely etiology being microvascular disease due to underlying co-morbidities. Recommendations: CVA (cerebral vascular accident) - presumed microvascular etiology - f/u MRI head this evening around 8pm - continue telemetry monitoring - Q4 stroke neuro vital signs - GLENNA results pending from [facility] - PT/OT to assist with [...] Romeo Coelho is a right handed 49 y.o.-iefx-vci-eghu has a past medical history of HTN (hypertension); HLD (hyperlipidemia); DMII (diabetes mellitus, type 2); CAD (coronary artery disease); Smoking; Depression; Fibromyalgia; and Gout. Patient was transferred to from [facility] after administration of TPAfollowing sudden onset [...] normal tensive, patient was subsequently transferred to [facility] for higher level of care after [...] and reason for admission, registration and recall 3/3, serial 7s intact, spells world backwards, follows 3 step commands, speech fluent, no language impairments, normal naming, repetition, and comprehension. Cranial Nerves: CN I: not assessed CN II: visual collins full, visual acuity grossly normal, PERRLA hospital recruiter III, IV, : EOMI with smooth pursuit [...] Rehab Code Status: full Elvira Gray MD [facility] Neurology Resident PGY-3 Pager # [phone] (# [phone] nights/weekends) 03/15/2015 3:35 Did patient have a stroke or TIA? Yes Type of Stroke Cerebral Infarction Stroke code: No Transfer from outside hospital: Yes Hospital Name: [facility] Initial Contact Time: patient received TPA at 2020 on March 14 On admission to [facility], NIHSS: NIHSS Testing Interval: 2 hr [...] during this hospitalization? PT: Yes OT: Yes TRUCK DRIVER: No; patient returned to prior level of [...] his MRI today. Venu Veliz MD MSc Environmental Programs Manager [facility] Board certified Adult Neurology Adult Neurology, Neuro-Oncology and Neurophysiology [address] [facility], [address] documented in this encounter Miscellaneous Notes * [...] Response: Ready for discharge to home. Abena Garcia RN 03/16/2015 10:50 * Plan of Care - [...] assess per protocol D: patient admitted from [facility] s/p ischemic stroke. Received TPA prior to transfer to [facility]. A: neuro checks per TPA protocol. [...] SCANNED (03/21/2015 8:17 EDT) 03/21/2015 8:17 EDT us Scan 2 Manager Animation PROCEDURE/MINOR SURGICAL OR DERABLES Final Result * ECG REPORT - SCANNED (03/20/2015 22:44 EDT) 03/20/2015 22:4 4 EDT us Scan 2 Manager Animation PROCEDURE/MINOR SURGICAL OR DERABLES Final Result * CREATININE (03/16/2015 4:06 EDT) Creatinine 0.77 0.66 - 1.25 mg/dl 03/16/2015 4:50 EDT [facility] GFR, Calculated 108 >60 ml/min/1.7 3m2 03/16/2015 4:50 EDT [facility] Comment: eGFR calculated using CKD-EPI equation for non Americans. Multiply eGFR by 1.16 for Americans. Blood specimen (specimen) BLOOD SPECIMEN / Unknown 03/16/2015 4:06 EDT 03/16/2015 4:18 EDT us Rob Mayorga MD CHEMISTRY & BLOOD GAS O RDERABLES Final Result [facility] [address] [place] [address] * (ABNORMAL) BUN (03/16/2015 4:06 EDT) BUN 9(L) 10 - 26 mg/dl 03/16/2015 4:50 [facility] Blood specimen (specimen) BLOOD SPECIMEN / Unknown 03/16/2015 4:06 EDT 03/16/2015 4:18 EDT us Rob Mayorga MD CHEMISTRY & BLOOD GAS O RDERABLES Final Result [facility] [address] [place] [address] * (ABNORMAL) HEMAGRAM AND DIFFERENTIAL (03/16/2015 4:06 EDT) Pathologist [facility] WBC 7.36 4.0 - 10.4 K/cmm 03/16/2015 4:45 [facility] RBC 4.80 4.36 - 5.78 M/cmm 03/16/2015 4:45 [facility] Hemoglobin 14.4 13.8 - 17.3 gm/dl 03/16/2015 4:45 [facility] HCT 42.4 39.5 - 50.2 % 03/16/2015 4:45 [facility] MCV 88 81 - 95 fl 03/16/2015 4:45 [facility] MCH 30.0 27.6 - 33.0 pg 03/16/2015 4:45 [facility] MCHC 34.0 32.8 - 36.4 gm/dl 03/16/2015 4:45 [facility] RDW-CV 13.6 11.8 - 14.1 % 03/16/2015 4:45 [facility] RDW-SD 41.6 36.5 - 45.9 fl 03/16/2015 4:45 [facility] PLT 163 141 - 320 K/cmm 03/16/2015 4:45 [facility] MPV 9.0 7.5 - 11.2 fl 03/16/2015 4:45 [facility] % Neutrophils 43.3(L) 45.5 - 79.7 % 03/16/2015 4:45 [facility] % Lymphocytes 42.5 15.0 - 46.8 % 03/16/2015 4:45 [facility] % Monocytes 7.7 1.8 - 12.0 % 03/16/2015 4:45 [facility] % Eosinophils 5.3 0.6 - 6.9 % 03/16/2015 4:45 [facility] % Basophils 1.2 0.2 - 1.4 % 03/16/2015 4:45 [facility] ABS Neutrophils 3.19 2.20 - 8.85 K/cmm 03/16/2015 4:45 [facility] ABS Lymphs 3.13 1.09 - 3.30 K/cmm 03/16/2015 4:45 [facility] ABS Monocytes 0.57 0.1 - 0.8 K/cmm 03/16/2015 4:45 [facility] ABS Eosinophils 0.39 0.03 - 0.61 K/cmm 03/16/2015 4:45 [facility] ABS Basophils 0.09 0.01 - 0.11 K/cmm 03/16/2015 4:45 [facility] Type of Diff: Automated 03/16/2015 4:45 [facility] Blood specimen (specimen) BLOOD SPECIMEN / Unknown 03/16/2015 4:06 EDT 03/16/2015 4:18 EDT us Elvira Gray MD PACKAGES & DNA PROBE ORDERABLES Final Result [facility] [address] [place] [address] * ELECTROLYTES (03/16/2015 4:06 EDT) Sodium 145 136 - 145 mEq/L 03/16/2015 4:50 [facility] Potassium 3.9 3.5 - 5.0 mEq/L 03/16/2015 4:50 EDT [facility] Chloride 108 96 - 110 mEq/L 03/16/2015 4:50 EDT [facility] CO2 25 24 - 32 mEq/L 03/16/2015 4:50 EDT [facility] Blood specimen (specimen) BLOOD SPECIMEN / Unknown 03/16/2015 4:06 EDT 03/16/2015 4:18 EDT us Elvira Gray MD CHEMISTRY & BLOOD GAS ORDERABLES Final Result Performing Organization Address City/[facility]/ZIP Co de Phone Number [facility] [address] [place] [address] * GLUCOSE, GLUCOMETER (03/15/2015 22:45 EDT) [facility] Signature Glucose, Fingerstick 91 70 - 100 mg/dl 03/15/2015 22:57 EDT [facility] Business Banking Relationship Manager ID [id number] 03/15/2015 22:57 EDT [facility] Comment:[facility] Per[facility] BLOOD SPECIMEN / Unknown 03/15/2015 22:45 EDT 03/15/2015 22:57 EDT us Landon Dumont MD CHEMISTRY & BLOOD GAS ORDERABLES Final Result Performing Organization Address [facility] Co de Phone Number [facility] [address] [place] [address] * MR HEAD WO CONTRAST (03/15/2015 21:07 [...] Conclusion: No acute findings. Procedure Note Dakota ReidDO - 03/16/2015 MRI of the brain without [...] acute findings. Rob Mayorga MD IMG MRI ORDERABLES Val l Result * TROPONIN I (03/15/2015 18:17 EDT) Troponin I (ng/mL) <0.034 <0.034 ng/ml 03/15/2015 19:54 EDT [facility] Blood specimen (specimen) BLOOD SPECIMEN / Unknown 03/15/2015 18:17 EDT 03/15/2015 19:09 EDT Rob Mayorga MD CHEMISTRY & BLOOD GAS O RDERABLES Final Result [facility] [address] [place] [address] * GLUCOSE, GLUCOMETER (03/15/2015 17:19 EDT) Glucose, Fingerstick 100 70 - 100 mg/dl 03/15/2015 17:23 EDT [facility] Business Banking Relationship Manager ID [id number] 03/15/2015 17:23 EDT [facility] Comment:Test Performed by [facility] BLOOD SPECIMEN / Unknown 03/15/2015 17:19 EDT 03/15/2015 17:23 EDT us Landon Dumont MD CHEMISTRY & BLOOD GAS ORDERABLES Final Result Performing Organization Address City/[facility]/ZIP Co de Phone Number [facility] [address] [place] [address] * UA REFLEX (03/15/2015 16:16 EDT) UA Billing Microscopic not indicated. 03/15/2015 22:40 EDT [facility] URINE / Unknown 03/15/2015 1 6:16 EDT 03/15/2015 22:24 EDT Ladnon Dumont MD URINALYSIS ORDERABLES Final Resu lt Performing Organization Address City/[facility] Co de Phone Number [facility] [address] [place] [address] * URINALYSIS WITH REFLEX MICROSCOPIC (03/15/2015 16:16 EDT) Color, UA Yellow 03/15/2015 22:40 EDT [facility] Clarity, UA Clear 03/15/2015 22:40 EDT [facility] Glucose, UA Neg Neg 03/15/2015 22:40 T [facility] Bilirubin, UA Neg Neg 03/15/2015 22:40 EDT [facility] Ketones, UA Neg Neg 03/15/2015 22:40 T [facility] Specific [place], Urine 1.010 1.001 - 1.035 03/15/2015 22:40 EDT [facility] Blood, UA Neg Neg 03/15/2015 22:40 T [facility] pH, UA 6.5 4.6 - 8.0 03/15/2015 22:40 EDT [facility] Protein, UA Neg Neg 03/15/2015 22:40 T [facility] Urobilinogen, UA 0.2 0.2 - 1.0 E.U./dl 03/15/2015 22:40 EDT [facility] Nitrite, UA Neg Neg 03/15/2015 22:40 EDT [facility] Leuk Esterase Neg Neg 03/15/2015 22:40 EDT [facility] URINE / Unknown 03/15/2015 1 6:16 EDT 03/15/2015 22:24 EDT us Landon Dumont MD URINALYSIS ORDERABLES Final Resu lt Performing Organization Address [facility] Co de Phone Number [facility] [address] [place] [address] * URINE CULTURE IF UA POSITIVE - NON POCT URINALYSIS ONLY (03/15/2015 16:16 EDT) Culture if Indicated Culture not indicated by urinalysis results. 03/15/2015 22:49 EDT [facility] TOPOGRAPHY UNKNOWN / Unknown 03/15/2015 16:16 EDT 03/15/2015 22:24 EDT us Landon Dumont MD MICROBIOLOGY - GENERAL ORDERABLE S Final Result Performing Organization Address [facility] de Phone Number [facility] [address] [place] [address] * VL CAROTID/VERTEBRAL DUPLEX BILATERAL (03/15/2015 16:06 EDT) Anatomical Region Laterality Modality Other 03/15/2015 16:0 6 EDT Narrative 03/16/2015 9:40 EDT [facility] Diagnostic Laboratory [facility] [address] [place] [address] Technologist: Mono Hernandez IMPRESSIONS 1. 16-49% stenosis [...] homogeneous plaque. Electronically signed by: Satnam Lee [id number] Procedure Note Satnam Lee MD - 03/16/2015 Vascular Diagnostic Laboratory [facility], [facility], [facility] [address] [place] [address] Technologist: Mono Hernandez IMPRESSIONS 1. 16-49% stenosis [...] homogeneous plaque. Electronically signed by: Satnam Lee [id number] Rob Mayorga MD [facility] US VASCULAR ORDERAB LES Final Result * CHEST PA AND LATERAL (03/15/2015 12:01 [...] IMPRESSION: No acute disease. Rob Mayorga MD [facility] DIAGNOSTIC IMAGING ORDERABLES Final Result * (ABNORMAL) GLUCOSE, GLUCOMETER (03/15/2015 11:38 EDT) Glucose, Fingerstick 137(H) 70 - 100 mg/dl 03/15/2015 11:40 EDT [facility] Business Banking Relationship Manager ID [id number] 03/15/2015 11:40 EDT [facility] Comment:Test Performed by [facility] BLOOD SPECIMEN / Unknown 03/15/2015 11:38 EDT 03/15/2015 11:40 EDT Landon Dumont MD CHEMISTRY & BLOOD GAS ORDERABLES Final Result [facility] [address] [place] [address] * EKG 12-LEAD (03/15/2015 10:54 EDT) 03/15/2015 10:5 4 EDT Narrative [facility] - 03/19/2015 10:49 EDT ? [facility] ? Test Date: ?2015-03-15 Pat Name: ? ORMEO COELHO ?Department: ?? Roy 4 ? Room: ? M401 Gender: ? M ?Brokerage Clerk: ?? [id number] : ?[id number] ? Requested By: ALYSSIA Basilio Order Number: [id number] ? Reading MD: ?? VILMA BENSON MD ? Measurements Intervals ?[place] ? Rate: ? 65 ? P: ?-5 LA: ? 145 ?QRS: ?24 QRSD: ? 90 ? T: ?30 QT: ? 385 ? QTc: ?403 ? Interpretive Statements SINUS RHYTHM Compared to ECG 02/21/2014 18:59:09 No significant changes I reviewed the tracing and have either agreed or edited the findings in this report. Electronically Signed On 03-19-15 10:49:51 EDT by VILMA BENSON MD. Procedure Note Vilma Benson Jr., MD - 03/19/2015 [facility] Test Date: 2015-03-15 Pat Name: ROMEO COELHO Department: [place] [address] [place] [facility] Gender: M Brokerage Clerk: [id number] : 1965 Requested By: ALYSSIA WINSTON Order Number: [id number] Reading MD: VILMA BENSON MD Measurements Intervals [place] Rate: 65 P: -5 LA: 145 QRS: 24 QRSD: 90 T: 30 QT: 385 QTc: 403 Interpretive Statements SINUS RHYTHM Compared to ECG 02/21/2014 18:59:09 No significant changes I reviewed the tracing and have either agreed or edited the findings inthis report. Electronically Signed On 03-19-15 10:49:51 EDT by VILMA LIZAMA. us Rob Mayorga MD CARDIAC ECG ORDERABLES Final Result [facility] EKG * TROPONIN I (03/15/2015 10:45 EDT) Troponin I (ng/mL) <0.034 <0.034 ng/ml 03/15/2015 11:31 EDT [facility] Blood specimen (specimen) BLOOD SPECIMEN / Unknown 03/15/2015 10:45 EDT 03/15/2015 11:07 EDT us Rob Mayorga MD CHEMISTRY & BLOOD GAS O RDERABLES Final Result Performing Organization Address [facility]/ZIP Co de Phone Number [facility] [address] [place] [phone] * (ABNORMAL) GLUCOSE, GLUCOMETER (03/15/2015 7:42 EDT) Glucose, Fingerstick 108(H) 70 - 100 mg/dl 03/15/2015 7:44 EDT [facility] Business Banking Relationship Manager ID [id number] 03/15/2015 7:44 EDT [facility] Comment:[facility] BLOOD SPECIMEN / Unknown 03/15/2015 7:42 EDT 03/15/2015 7:44 EDT us Landon Dumont MD CHEMISTRY & BLOOD GAS ORDERABLES Final Result [facility] [address] [place] [address] * MRSA MOLECULAR DETECTION (03/15/2015 6:00 EDT) Result No Staphylococcus aureus detected by PCR. 03/15/2015 9:35 EDT [facility] Specimen of unknown material (specimen) NASAL ROUTE / Unknown 03/15/2015 6:00 EDT 03/15/2015 7:31 EDT Landon Dumont MD MICROBIOLOGY - GENERAL ORDERABLE S Final Result [facility] [address] [place] [address] * (ABNORMAL) HEMAGRAM AND DIFFERENTIAL (03/15/2015 1:52 EDT) WBC 8.42 4.0 - 10.4 K/cmm 03/15/2015 3:40 [facility] RBC 4.87 4.36 - 5.78 M/cmm 03/15/2015 3:40 [facility] Hemoglobin 14.5 13.8 - 17.3 gm/dl 03/15/2015 3:40 [facility] HCT 43.2 39.5 - 50.2 % 03/15/2015 3:40 [facility] MCV 89 81 - 95 fl 03/15/2015 3:40 [facility] MCH 29.8 27.6 - 33.0 pg 03/15/2015 3:40 [facility] MCHC 33.6 32.8 - 36.4 gm/dl 03/15/2015 3:40 [facility] RDW-CV 13.7 11.8 - 14.1 % 03/15/2015 3:40 [facility] RDW-SD 42.0 36.5 - 45.9 fl 03/15/2015 3:40 [facility] PLT 151 141 - 320 K/cmm 03/15/2015 3:40 [facility] MPV 8.7 7.5 - 11.2 fl 03/15/2015 3:40 EDT [facility] % Neutrophils 51.2 45.5 - 79.7 % 03/15/2015 3:40 [facility] % Lymphocytes 35.1 15.0 - 46.8 % 03/15/2015 3:40 [facility] % Monocytes 7.4 1.8 - 12.0 % 03/15/2015 3:40 [facility] % Eosinophils 4.4 0.6 - 6.9 % 03/15/2015 3:40 [facility] % Basophils 1.9(H) 0.2 - 1.4 % 03/15/2015 3:40 [facility] ABS Neutrophils 4.31 2.20 - 8.85 K/cmm 03/15/2015 3:40 [facility] ABS Lymphs 2.95 1.09 - 3.30 K/cm 03/15/2015 3:40 [facility] ABS Monocytes 0.63 0.1 - 0.8 K/cmm 03/15/2015 3:40 [facility] ABS Eosinophils 0.37 0.03 - 0.61 K/cmm 03/15/2015 3:40 [facility] ABS Basophils 0.16(H) 0.01 - 0.11 K/cmm 03/15/2015 3:40 [facility] Type of Diff: Automated 03/15/2015 3:40 [facility] Blood specimen (specimen) BLOOD SPECIMEN / Unknown 03/15/2015 1:52 EDT 03/15/2015 3:30 EDT us Elvira Gray MD PACKAGES & DNA PROBE ORDERABLES Final Result [facility] [address] [place] [address] * ELECTROLYTES (03/15/2015 1:52 EDT) Sodium 143 136 - 145 mEq/L 03/15/2015 4:10 T [facility] Potassium 3.8 3.5 - 5.0 mEq/L 03/15/2015 4:10 EDT [facility] Chloride 109 96 - 110 mEq/L 03/15/2015 4:10 EDT [facility] CO2 24 24 - 32 mEq/L 03/15/2015 4:10 EDT [facility] Blood specimen (specimen) BLOOD SPECIMEN / Unknown 03/15/2015 1:52 EDT 03/15/2015 3:30 EDT Elvira Gray MD CHEMISTRY & BLOOD GAS ORDERABLES Final Result Performing Organization Address City/[facility]/ZIP Co de Phone Number [facility] [address] [place] [address] * TSH (03/15/2015 1:52 EDT) TSH 1.97 0.35 - 5.00 uIU/ml 03/15/2015 10:51 EDT [facility] Blood specimen (specimen) BLOOD SPECIMEN / Unknown 03/15/2015 1:52 EDT 03/15/2015 3:30 EDT Elvira Gray MD CHEMISTRY & BLOOD GAS ORDERABLES Final Result Performing Organization Address City/[facility] Co de Phone Number [facility] [address] [place] [address] * LIPID PROFILE (INCLUDES CHOLESTEROL, TRIGLYCERIDES, HDL, LDL) (03/15/2015 1:52 EDT) Cholesterol 118 mg/dl 03/15/2015 4:10 EDT [facility] Comment: Desirable:<200 Borderline High:200-239 High:>te=076 Triglycerides 274 mg/dl 03/15/2015 4:10 T [facility] Comment: Normal:<150 Borderline High:150-199 High:200-499 Very High:>eu=133 HDL 30 mg/dl 03/15/2015 4:10 T [facility] Comment: Low:<40 Normal:40-60 Desirable: >60 LDL, Calculated 33 mg/dl 5 4:10 EDT [facility] Comment: Optimal:<100 Near Optimal:100-129 Borderline High:130-159 High:160-189 Very High:>ty=580 Chol/HDL Ratio 3.9 03/15/2015 4:10 EDT [facility] Fasting? Unknown 03/15/2015 3:30 EDT [facility] Non HDL Cholesterol 88 mg/dl 03/15/2015 4:10 EDT [facility] Comment: Desirable:<130 Borderline:130-159 High: 160-189 Very High: >rr=958 Blood specimen (specimen) BLOOD SPECIMEN / Unknown 03/15/2015 1:52 EDT 03/15/2015 3:30 EDT Elvira Gray MD CHEMISTRY & BLOOD GAS ORDERABLES Final Result Performing Organization Address [facility] de Phone Number [facility] [address] [place] [address] * HEMOGLOBIN A1C (03/15/2015 1:52 EDT) Hemoglobin A1C 6.4 % 03/15/2015 9:40 EDT [facility] Comment: Reference Range: <5.7% Normal 5.7-6.4% Increased risk for diabetes =>6.5% Diagnostic for diabetes (if confirmed) The A1c goal for non adults in general is <7%. The A1c goal for selected patients may be significantly lower than 7% if this can be achieved without significant hypoglycemia or other adverse effects of treatment. Est Avg Glucose 137 mg/dl 5 9:40 EDT [facility] Comment: eAG represents the A1c result expressed as average glucose in mg/dl. Blood specimen (specimen) BLOOD SPECIMEN / Unknown 03/15/2015 1:52 EDT 03/15/2015 3:30 EDT us Elvira Gray MD CHEMISTRY & BLOOD GAS ORDERABLES Final Result Performing Organization Address [facility] de Phone Number [facility] [address] [place] [address] * (ABNORMAL) BUN (03/15/2015 1:52 EDT) BUN 9(L) 10 - 26 mg/dl 03/15/2015 4:10 EDT [facility] Blood specimen (specimen) BLOOD SPECIMEN / Unknown 03/15/2015 1:52 EDT 03/15/2015 3:30 EDT us Elvira Gray MD CHEMISTRY & BLOOD GAS ORDERABLES Final Result Performing Organization Address [facility] Co de Phone Number [facility] [address] [place] [address] * CREATININE (03/15/2015 1:52 EDT) Creatinine 0.81 0.66 - 1.25 mg/dl 03/15/2015 4:10 EDT [facility] GFR, Calculated 106 >60 ml/min/1.7 3m2 03/15/2015 4:10 EDT [facility] Comment: eGFR calculated using CKD-EPI equation for non Americans. Multiply eGFR by 1.16 for Americans. Blood specimen (specimen) BLOOD SPECIMEN / Unknown 03/15/2015 1:52 EDT 03/15/2015 3:30 EDT Result Julianne Gray MD CHEMISTRY & BLOOD GAS ORDERABLES Final Result Performing Organization Address [facility] Co de Phone Number [facility] [address] [place] [phone] * SCREENING GLUCOSE (03/15/2015 1:52 EDT) Glucose, Screening 98 70 - 100 mg/dl 03/15/2015 4:10 EDT [facility] Blood specimen (specimen) BLOOD SPECIMEN / Unknown 03/15/2015 1:52 EDT 03/15/2015 3:30 EDT us Elvira Gray MD CHEMISTRY & BLOOD GAS ORDERABLES Final Result Performing Organization Address [facility]/ZIP Co de Phone Number [facility] [address] [place] [address] documented in this encounter Visit Diagnoses Diagnosis CVA (cerebral vascular accident) ([facility])- Primary Unspecified cerebral artery occlusion with cerebral infarction CVA (cerebral vascular accident) ([facility]) Unspecified cerebral artery occlusion with cerebral infarction [...] may reflect changes made after this encounter. aspirin 325 mg tablet Take 325 mg by mouth daily 04/08/2023 added in this encounter Active and Recently Administered Medications Times are shown in EDT. Scheduled Medication Order 03/14/2015 03/15/2015 03/16/2015 aspirin chewable tablet 81 mg (CANCELED) 81 mg, oral, DAILY, First dose on Thu03/15/15 at 2145, Until Discontinued, Routine 2245 (Given [...] Routine 0807 (Given - Provider: Steffanie Chicas RN)2245 (Given - Provider: Emmy Gomez RN) 0840 [...] 120 mg, oral, DAILY, First dose on Martha 03/15/15 at 0900, Until Discontinued, Routine 0806 (Given - Provider: Steffanie Chicas RN) 0840 (Given - Provider: Abena Garcia RN) metoprolol (LOPRESSOR) tablet 100 mg (CANCELED) 100 mg, oral, 2 TIMES DAILY, First dose on Martha 03/15/15 at 0900, Until Discontinued, Routine 0806 (Given - Provider: Steffanie Chicas RN)2246 (Given - Provider: Emmy Gomez RN) 0840 (Given - Provider: Abena Garcia, VERO) pantoprazole (PROTONIX) tablet 40 mg (CANCELED) 40 mg, oral, DAILY, First dose on Martha 03/15/15 at 0900, Until Discontinued, Routine 0806 (Given - Provider: Steffanie Chicas RN) 0840 (Given - Provider: Abena Garcia RN) ranolazine (RANEXA) ER tablet 500 mg (CANCELED) [...] 0840 (Given - Provider: Abena Garcia, VERO) Continuous Medication Order 03/14/2015 03/15/2015 03/16/2015 sodium chloride 0.9 % (NS) infusion (CANCELED) at 100 mL/hr, intravenous, CONTINUOUS, Starting on Thu03/15/15 at 0645, Until Thu03/16/15 at 0630, Routine 0630 (New Bag - Provider: Pao Valdivia)0700 (Rate Documented - Provider: Steffanie Chicas RN)0800 (Rate Documented - Provider: Steffanei Chicas RN)0900 (Rate Documented - Provider: Steffanie Chicas RN)1000 (Rate Documented - Provider: Steffanie Chicas RN)1100 (Rate Documented - Provider: Steffanie Chicas RN)1200 (Rate Documented - Provider: Steffanie Chicas RN)1300 (Rate Documented - Provider: Steffanie Chicas RN)1400 (Rate Documented - Provider: Steffanie Chicas [...] Gomez RN)0100 (Rate Documented - Provider: Emmy Goemz, VERO)0211 (Rate Documented - Provider: Emmy Gomez, VERO)0300 (Rate Documented - Provider: Emmy Gomez RN)0500 [...] 1 02/22 metFORMIN (GLUCOPHAGE) tablet 850 mg 02/22 nitroGLYCERIN (NITROSTAT) SL tablet 0.4 mg [...] 03/16/2015 NOTIFY PPS OF ROOM CHANGE COMPLETE 2014 UR PATIENT STATUS CHANGE 1 03/15/2015 PPS NOTIFICATION OF PATIENT ARRIVAL ON UNIT 1 03/14/2015 Discharge Count Last Ordered Date First Orde red Date DISCHARGE PATIENT 1 03/16/2015 Legal Count Last Ordered Date First Orde red Date MISCELLANEOUS DISCHARGE INSTRUCTIONS 02/22 documented in this encounter Care Teams Manifest/Order Organizer Print Orders Relationship Specialty Start Date End Date Sarita Lim MD [address] [place] [address] PCP - General 12/17/11 documented as of this encounter
--- OUTSIDE RECORDS SUMMARY | 2024-08-05 17:24 | XMS_ITS | Encounter Summary ---
Author Organization [facility] Address [address] [place] [address] Care Team Providers Care Spares Scheduler Name Role Phone Coni Lim MD Primary Care Provider Encounter Details Date Type Department Care Team (Late st Contact Info) Description 01/14/2022 Lab Requisition [facility] Pathology & Laboratory Medicine - [facility] [address] [place] [address] Kevin Landaverde MD [address] [place] [address] [id number] Encounter for other general examination Social History [...] documented as of this encounter Functional Status * Are you deaf or do you have serious difficulty hearing? Answer Date of Assessment Author No 03/15/2015 0:00 Feliz Cardona * Are you blind or do you have serious difficulty seeing, even when wearing glasses? Answer Date of Assessment Author No 03/15/2015 0:00 Feliz Cardona * Do you have serious difficulty walking or climbing stairs? (5 years old or older) Answer Date of Assessment Author No 03/15/2015 0:00 Feliz Cardona * Do you have difficulty dressing or [...] Author No 03/15/2015 0:00 EDT Feliz Alcantar documented as of this encounter Mental Status * Because of a physical, mental, or emotional condition, do you have serious difficulty concentrating, remembering, or making decisions? (5 years old or older) Answer Entry Date Author No 03/15/2015 0:00 EDT Feliz Alcantar documented in this encounter Plan of Treatment Not on file documented as of this encounter Procedures Procedure Name Priority Date/Time Associated Diagnosis Comments NON EQUIPMENT SERVICES ASSOCIATE/FNA CYTOLOGY Today 01/13/2022 8:35 EDT Encounter for other general examination documented in this encounter Results * NON EQUIPMENT SERVICES ASSOCIATE/FNA CYTOLOGY (01/13/2022 8:35 EDT) Note to Patient The following pathology results have been interpreted by your pathologist and may be available to you before your health provider has had the opportunity to review them. Please allow time for your provider to receive these results and explore management options, if applicable. 01/15/2022 12:10 [facility] Final Diagnosis THYROID, RIGHT LOBE, NODULE, ULTRASOUND-GUIDE D FINE NEEDLE ASPIRATION: - Non-diagnostic aspirate. See comment. 01/15/2022 12:10 [facility] Diagnosis Comment Smears are [...] molecular testing as clinically indicated. 01/15/2022 12:10 [facility] Attestation There was significant resident/fellow involvement in the diagnostic evaluation of this case. By the signature below, the attending physician certifies that they have personally conducted a gross and/or microscopic examination of the described specimens and rendered or confirmed the above diagnosis. 01/15/2022 12:10 T [facility] at 1210 Rapid Diagnosis THYROID, [...] by Dr. Melgar assisting Dr. Landaverde at [facility] on 01/13/22. 01/15/2022 12:10 EDT [facility] Clinical History Right thyroid nodule 01/15/2022 12:10 T [facility] Gross Description A. 8 fixed prepared slides, 1 air dried prepared slide, and 1 tube of CytoLyt were received and processed by selective cellular enhancement technique. 01/15/2022 12:10 T [facility] Resident/Brent w: Daniel Christensen DO 01/15/2022 12:10 T [facility] Performing Lab [facility] 01/15/2022 12:10 T [facility] Scanned Images 01/15/2022 12:10 [facility] Fine Needle Aspirate ENTIRE RIGHT LOBE OF THYROID GLAND / Unknown 01/13/2022 8:35 EDT 01/14/2022 6:34 EDT us Kevinchristi Landaverde MD PATHOLOGY ORDERABLES Final Resul t [facility] [address] [place] [address] documented in this encounter Visit Diagnoses Diagnosis Encounter for other general examination documented in this encounter Care Teams Spares Scheduler Relationship Specialty Start Date End Date Coni Lim MD [address] [place] [id number] PCP - General 12/17/11 documented as of this encounter
--- OUTSIDE RECORDS SUMMARY | 2024-08-05 17:24 | XMS_ITS | Encounter Summary ---
Author Organization [facility] Address [address] [place] [address] Care Team Providers Care Assembler 1St Shift Name Role Phone Coni Lim MD Primary Care Provider Reason for Visit * (Routine/Next Available) - Receiving Office to Obtain Authorization Specialty Diagnoses / Procedures Referred By Contsigifredo t Referred To Contact Procedures CT OUTSIDE IMAGES CHEST ABDOMEN PELVIS Unknown, Provider, MD Referral ID Status Reason Start Date Expiration Date Visits Requested Visits Authorized [id number] Receiving Office to Obtain Authorization 04/07/2023 1 1 Encounter Details Date Type Department Care Team (Latest Contact Info) Description 04/07/2023 20:11 EDT - 04/07/2023 20:13 EDT Hospital Encounter [facility] Secondary Reads [place] Discharge Disposition: Home or [...] Author No 03/15/2015 0:00 CASEYT Feliz Alcantar M * Are you blind or do you have serious difficulty seeing, even when wearing glasses? Answer Date of Assessment Author No 03/15/2015 0:00 Feliz Cardona M * Do you have serious difficulty walking or climbing stairs? (5 years old or older) Answer Date of Assessment Author No 03/15/2015 0:00 Feliz Cardona * Do you have difficulty dressing or bathing? (5 years old or older) Answer Date of Assessment Author No 03/15/2015 0:00 Feliz Cardona * Because of a physical, mental, or emotional condition, do you have difficulty doing errands alone such as visiting a doctor's office or shopping? (15 years old or older) Answer Date of Assessment Author No 03/15/2015 0:00 Feliz Cardona documented as of this encounter Mental Status * Because of a physical, mental, or emotional condition, do you have serious difficulty concentrating, remembering, or making decisions? (5 years old or older) Answer Entry Date Author No 03/15/2015 0:00 Feliz Cardona documented in this encounter Medications at Time of Discharge aspirin 81 mg capsule Take 81 mg [...] 20:18 EDT This is a non-reportable exam. us Provider Unknown MD DAVIES OTHER IMAGING ORDERABLES Final Result documented in this encounter Visit Diagnoses Not on filedocumented in this encounter Care Teams Assembler 1St Shift Relationship Specialty Start Date End Date Coni Lim MD [address] [place] [id number] PCP - General 12/17/11 documented as of this encounter
--- OUTSIDE RECORDS SUMMARY | 2024-08-05 17:24 | XMS_ITS | Encounter Summary ---
Author Organization [facility] Address [address] [place] [address] Care Team Providers Care Adon Name Role Phone Coni Lim MD Primary Care Provider [phone] Reason for Visit * (Routine/Next Available) - Receiving Office to Obtain Authorization Specialty Diagnoses / Procedures Referred By Contac t Referred To Contact Procedures CT OUTSIDE IMAGES CERVICAL SPINE Unknown, Provider, MD Referral ID Status Reason Start Date Expiration Date Visits Requested Visits Authorized [id number] Receiving Office to Obtain Authorization 04/07/2023 1 1 Encounter Details Date Type Department Care Team (Latest Contact Info) Description 04/07/2023 20:11 EDT - 04/07/2023 20:13 EDT Hospital Encounter [facility] Secondary [place] Discharge Disposition: Home [...] 03/15/2015 0:00 CASEYT Feliz Alcantar M * Do you have serious difficulty [...] Answer Entry Date Author No 03/15/2015 0:00 Feilz Cardona documented in this encounter Medications at [...] on filedocumented in this encounter Care Teams Adon Relationship Specialty Start Date End Date Coni Lim MD [address] [place] [id number] PCP - General 4/25/12 documented as of this encounter
--- OUTSIDE RECORDS SUMMARY | 2024-08-05 17:24 | XMS_ITS | Encounter Summary ---
Author Organization [facility] Address [address] [place] [address] Care Team Providers Care Party Host/Hostess Name Role Phone Coni Lim MD Primary Care Provider [phone] Reason for Visit * Auth/Cert (Routine) Specialty Diagnoses / Procedures Referred By Contsigifredo t Referred To Contact Diagnoses Encephalopathy Seizures Referral ID Status Reason Start Date Expiration Date Visits Re quested Visits Authorized [id number] 1 1 Encounter Details Date Type Department Care Team (Late st Contact Info) Description 04/07/2023 23:45 EDT - 04/09/2023 13:45 EDT Hospital Encounter [place] [address] General Medicine Telemetry Unit [address], [place] [id number] Gillian Randolph MD [address] [facility], Level 5 [place] [id number] Park Coe MD MPH [address] [phone] Acute respiratory failure with hypoxia (HCC-CMS); Cerebrovascular [...] Author No 03/15/2015 0:00 CASEYT Feliz Alcantar * Are you blind or do you have serious difficulty seeing, even when wearing glasses? Answer Date of Assessment Author No 03/15/2015 0:00 CASEYT Feliz Alcantar * Do you have serious difficulty walking or climbing stairs? (5 years old or older) Answer Date of Assessment Author No 04/08/2023 5:00 CASEYT Oxana Welsh RN * Do you have difficulty dressing or bathing? (5 years old or older) Answer Date of Assessment Author No 04/08/2023 5:00 CASEYT Oxana Welsh RN * Because of a physical, mental, or [...] EDT Feliz Alcantar documented in this encounter Discharge Summaries * Park Coe [...] 04/08/2023 ??? Acute respiratory failure with hypoxia ([facility]) ([facility]) 04/08/2023 ??? Idiopathic hypotension 04/08/2023 ??? Anxiety and depression 02/22/2014 ??? Unstable angina ([facility]) ([facility]) 02/15/2014 ??? CAD (coronary artery disease) 02/15/2014 ??? CVA (cerebral vascular accident) ([facility]) 03/15/2015 Resolved Hospital Problems No resolved problems to display. Transition of care: [facility] Transition of Care report automatically routed to PCP office on discharge.Additional handoff communication performed via: Fax Clinical Issues Needing Follow-up 1. 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 Recommended follow-up tests/procedures needed: - Routine follow-up with PCP 3. Anticoagulation on discharge: No Recent Labs 04/08/23 0122 INR 1.1 4. Changes to goals of care at time of discharge (if applicable): N/A Hospital Course: Romeo Coelho is a 57 y/o man with a history of CAD s/p PCI and prior CVA, who was admitted to the MICU from [facility] after being found down and unresponsive. His found him down outside after he went out to mow the lawn. At [facility] he was found to have a GCS of 3 and was intubated for airway protection. He underwent CT head and CT angio head/neck out of concern for midbrain or pontine stroke, both of which were unrevealing. He was transferred to the [facility] MICU for further management of his [...] today: 35 Minutes Park Coe MD MPH [facility] Inpatient Service 04/09/2023 14:33 documented in [...] Means Destination Comment s Home or Self [facility] documented in this encounter Progress Notes * Mika Karan - 04/09/2023 1332 EDT Romeo Coelho 1965 [...] accessing necessary care and/or follow-up after discharge. 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 Presented to [facility] after being found down by . Was seen ~30min prior while mowing the lawn. In ED pt intubated for airway protection. Transfer to [facility] MICU. Was able to quickly extubated [...] 04/08/23 * Leigha Welsh RN - 04/08/2023 0573 EDT FOUR EYES SKIN ASSESSMENT Four Eyes [...] LDA for any identified wounds ??? Add Fulton image for any suspected PI or non surgical wounds ??? Order wound consult if suspected PI identified ? ? If Anibal is < or = to 16, initiate Pressure Injury Prevention Bundle ([id number]). 04/08/2023 5:48 * Martha Randall RT - 04/07/2023 2350 EDT Respiratory Progress Note Indications for Respiratory therapy: Mechanical Ventilation Data Vitals: Heart Rate: 78 BPM, Resp: 16, SpO2: 97 % FIO2/O2 Device: , , O2 Device: Intubated, FIO2 %: 30 % RT Orders: Continuous RT Orders (From admission, onward) Start Ordered 04/08/23 0500 Mechanical Ventilation-Invasive [[id number]] RT Continuous Discontinue References: ARDS/ALI Protocol Post Op Protocol Weaning Protocol ETCO2 Protocol Question Answer Comment Mode: Assist Control Control Type: Volume Control VT (mL) 510 Set Rate (f/min) 16 Peep (cm H2O) 5 Autoflow: Yes Protocols: Weaning ETCO2 Protocol: Yes 04/08/23 0023 Active Orders Action/Events Respiratory events; Pt transferred from [facility], received report from Transport Team. [...] 1 Patient was admitted from: Outside Hospital: [facility] The patient is a 57 [...] prior symptoms May follow with neurologist in [facility]? #History of CVA - as above Renal [...] mg subQ Lines/Tubs - Intubated as above, Vandana boucher Code Status Code Status Information Code Status Full Code Modified Resuscitation Specifics: When the patient has NO PULSE:: Full Code / CPR Who Made the Decision?: Default/Not Discussed Subjective Chief Complaint Altered mental status HPI The patient is a 57 y.o. male with a history of CAD and prior CVA who [facility] after being found down and unresponsive. His found him down outside after he went out to mow the lawn. At [facility] he was found to have a GCS of 3 and was intubated for airway protection. He underwent CT head and CT angio head/neck out of concern for midbrain or pontine stroke, both of which were unrevealing. He was transferred to the [facility] MICU for further management of his depressed mental status. Collateral obtained from patient's : Patient was in normal state of health. Went out to [place] and then mow the lawn. Was seen maybe30 min prior. Then she [...] No known supplements. Only recent travel to [facility]. No known possible toxic ingestions. [...] sinus rhythm, rate 81, normal axis, normal MO interval, normal QTc Brandon Denny, MS4 Signed, [...] Problem: Encephalopathy Active Problems: Unstable angina (HCC-CMS) ([facility]) CAD (coronary artery disease) Anxiety and depression Acute respiratory failure with hypoxia (HCC-CMS) ([facility]) Idiopathic hypotension CVA (cerebral vascular accident) ([facility]) Critical Care time was provided in the [...] Care - Aiyana Almonte RN - 04/09/2023 2677 EDT Data: VSS on RA. AOX3. No pain, no nausea. Independent. Action: Meds given per MAR. No PRNs required. Response: Tolerating activity and [...] 527 mls ACTION: meds given as per OCT, instructed the importance of voiding 6 hours [...] LDA for any identified wounds ??? Add Fulton image for any suspected PI or non surgical wounds ??? Order wound consult if suspected PI identified ? ? If Anibal is < or = to 16, initiate Pressure Injury Prevention Bundle ([id number]). 04/08/2023 19:39 * Plan of Care - Katarzyna Young RN - 04/08/2023 1844 EDT Data: assumed care of pt @ [...] room air. Denies pain. Transportedvia wheelchair to [place] [address] by RN. Report endorsed to Steffanie PHAM [...] Keenan Laws MD - 04/08/2023 1821 EDT [facility] Medicine Transfer Summary Service Date: 04/08/2023 Admit Date: 04/08/23 Primary Care Provider: Coni Lim Chief Complaint: Syncope HPI Romeo Coelho is a 57 y.o. male with a PMHx of CAD s/p prior PCI and prior CVA, DM2, HLD who presented as a transfer from [facility] on 04/07/2023 intubated and sedated for airway protection after being brought to [facility] via EMS for syncope. Per records, the patient's story is consistent with feeling tired and dehydrated prior to the event, his first of this kind. Eval prior to arrival at the [facility] MICU included head and neck imaging [...] ??? DMII (diabetes mellitus, type 2) ([facility]) ??? Fibromyalgia ??? Gout ??? HLD [...] 04/08/23121 PROTIME 12.0 INR 1.1 Recent Labs 04/08/23121 TBIL <0.5 ALKPHOS 53 AST 25 ALT 18 Imaging XR CHEST PORTABLE LINE PLACEMENT Result Date: 04/08/2023 Endotracheal tube terminates in the lower mid trachea, correlate with positioning of chin and consider retraction. Nasogastric tube separately reported. I have personally reviewed the images and the above interpretation and agree with the findings. [id number] Assessment Romeo Coelho is a 57 y.o. 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 on 04/07/23 after a syncopal event that occurred after he had mowed his lawn.Per records from [facility], he was found down by his and brought to [facility] via EMS. He was started onPropofol and [...] or cardiac symptoms. Evaluation for stroke and RI (inc troponins and TTE) was unrevealing. Of note his U tox is positive for Benzos, Fentanyl and Cannabis. He acknowledges regular marijuana use (it is prescribed to me) and reports having a niece who struggles with an opiate use disorder,but denies using drugs other than marijuana. Available records from [facility] do not reveal evidence that these drugs were administered there (or here). I shared this information with him but he again reports using marijuana only. Will monitor on tele overnight and likely DC home tomorrow. ?? Keenan Laws MD * Plan of Care - Rick Cuellar MD - 04/08/2023 5916 EDT Plan of Care Note Patient admitted overnight to MICU, intubated from [facility]. Patient briefly on pressors and [...] Patient will likely be transferred to the [facility] medicine as he no longer requires ICU level of care. Rick Cuellar, PGY-1 Cosigned by Bryan Mir MD at 04/08/2023 14:44 EDT * Plan of Care - Leigha Welsh [...] failed SBT for apnea (see note by Prakash RT). Pt currently resting in bed comfortably. LEIGHA [...] SCANNED (04/14/2023 7:42 EDT) 04/14/2023 7:42 EDT us Scan 2 Broadcast News Producer PROCEDURE/MINOR SURGICAL OR DERABLES Final Result * ECG REPORT - SCANNED (04/13/2023 13:22 EDT) 04/13/2023 13:2 2 EDT us Scan 2 Broadcast News Producer PROCEDURE/MINOR SURGICAL OR DERABLES Final Result * BETA HYDROXYBUTYRATE (04/09/2023 12:15 EDT) Beta Hydroxybutyrate <0.1 <0.4 mmol/L 04/09/2023 12:48 EDT [facility] Blood VENOUS BLOOD / Unknown Venipuncture / Unknown 04/09/2023 12:15 EDT 04/09/2023 12:24 EDT us Keeley Quiroz PA-C CHEMISTRY & BLOOD GAS ORD ERABLES Final Result [facility] [address] [place] [address] * (ABNORMAL) BASIC METABOLIC PANEL (BMP) (04/09/2023 12:15 EDT) Sodium 140 136 - 145 mmol/L 04/09/2023 12:42 EDT [facility] Potassium 3.7 3.5 - 5.0 mmol/L 04/09/2023 12:42 T [facility] Chloride 110 96 - 110 mmol/L 04/09/2023 12:42 EDT [facility] CO2 Total 19(L) 22 - 32 mmol/L 04/09/2023 12:42 [facility] Anion Gap 11 5 - 14 mmol/L 04/09/2023 12:42 [facility] Glucose 122(H) 70 - 99 mg/dl 04/09/2023 12:42 T [facility] Calcium 8.8 8.5 - 10.5 mg/dL 04/09/2023 12:42 EDT [facility] BUN 11 10 - 26 mg/dL 04/09/2023 12:42 EDT [facility] Creatinine 0.68 0.66 - 1.25 mg/dL 04/09/2023 12:42 EDT [facility] eGFR 110 >60 mL/min/1.73 m2 04/09/2023 12:42 EDT [facility] Blood VENOUS BLOOD / Unknown Venipuncture / Unknown 04/09/2023 12:15 EDT 04/09/2023 12:24 EDT Keeley CARPENTERC CHEMISTRY & BLOOD GAS ORD ERABLES Final Result Performing Organization Address City/[facility]/ZIP Co de Phone Number [facility] [address] [place] [address] * LACTIC ACID (04/09/2023 12:14 EDT) Lactic Acid 0.9 <=2.0 mmol/L 04/09/2023 12:53 EDT [facility] Blood VENOUS BLOOD / Unknown Venipuncture / Unknown 04/09/2023 12:14 EDT 04/09/2023 12:25 EDT us Keeley Quiroz PA-C CHEMISTRY & BLOOD GAS ORD ERABLES Final Result Performing Organization Address City/[facility]/ZIP Co de Phone Number [facility] [address] [place] [address] * (ABNORMAL) BASIC METABOLIC PANEL (BMP) (04/09/2023 9:30 EDT) Sodium 140 136 - 145 mmol/L 04/09/2023 11:13 EDT [facility] Potassium 3.7 3.5 - 5.0 mmol/L 04/09/2023 11:13 EDT [facility] Comment:Slight hemolysis christo ntified, interpret with caution as hemolysis will elevate potassium result. Chloride 110 96 - 110 mmol/L 04/09/2023 11:13 [facility] CO2 Total 15(L) 22 - 32 mmol/L 04/09/2023 11:13 [facility] Anion Gap 15(H) 5 - 14 mmol/L 04/09/2023 11:13 [facility] Glucose 203(H) 70 - 99 mg/dl 04/09/2023 11:13 [facility] Calcium 8.8 8.5 - 10.5 mg/dL 04/09/2023 11:13 [facility] BUN 12 10 - 26 mg/dL 04/09/2023 11:13 [facility] Comment: Slight hemolysis identified, interpret with caution as results may be affected due to hemolysis. Creatinine 0.78 0.66 - 1.25 mg/dL 04/09/2023 11:13 [facility] eGFR 105 >60 mL/min/1.7 3m2 04/09/2023 11:13 [facility] Blood VENOUS BLOOD / Unknown Venipuncture / Unknown 04/09/2023 9:30 EDT 04/09/2023 10:39 EDT us Memo Odonnell MD CHEMISTRY & BLOOD GAS ORDERABLE S Final Result [facility] [address] [place] [address] * (ABNORMAL) COMPLETE BLOOD COUNT (04/09/2023 9:30 EDT) WBC 8.85 4.00 - 10.40 K/cmm 04/09/2023 10:47 [facility] RBC 4.69 4.36 - 5.78 M/cmm 04/09/2023 10:47 [facility] Hemoglobin 13.9 13.8 - 17.3 g/dL 04/09/2023 10:47 [facility] HCT 40.9 39.5 - 50.2 % 04/09/2023 10:47 [facility] MCV 87 81 - 95 fL 04/09/2023 10:47 [facility] MCH 29.6 27.6 - 33.0 pg 04/09/2023 10:47 EDT [facility] MCHC 34.0 32.8 - 36.4 g/dL 04/09/2023 10:47 EDT [facility] RDW-CV 14.1 <14.2 % 04/09/2023 10:47 EDT [facility] RDW-SD 45.1 <46.0 fl 04/09/2023 10:47 EDT [facility] PLT 137(L) 141 - 377 K/cmm 04/09/2023 10:47 EDT [facility] MPV 11.8 9.5 - 12.7 fL 04/09/2023 10:47 EDT [facility] Blood VENOUS BLOOD / Unknown Venipuncture / Unknown 04/09/2023 9:30 EDT 04/09/2023 10:39 EDT us Memo Odonnell MD HEMATOLOGY & PF4 ORDERABLES Fin al Result Performing Organization Address City/[facility]/ZIP Co de Phone Number [facility] [address] [place] [address] * (ABNORMAL) POCT GLUCOSE, INTERFACED (04/09/2023 8:25 EDT) Glucose, POC 154(H) 70 - 100 mg/dL 04/09/2023 8:26 EDT [facility] HN LAB POC COMMENT (GLUCOSE) Test Performed by Nursing Services 04/09/2023 8:26 EDT [facility] Blood CAPILLARY BLOOD / Unknown 04/09/2023 8:25 EDT 04/09/2023 8:26 EDT us Abdi Peoples POINT OF CARE TEST ORDERABLES Fi nal Result Performing Organization Address City/[facility]/ZIP Co de Phone Number [facility] [address] [place] [address] * (ABNORMAL) POCT GLUCOSE, INTERFACED (04/08/2023 20:50 EDT) Glucose, POC 128(H) 70 - 100 mg/dL 04/08/2023 20:51 EDT [facility] HN LAB POC COMMENT (GLUCOSE) Test Performed by Nursing Services 04/08/2023 20:51 EDT [facility] Blood CAPILLARY BLOOD / Unknown 04/08/2023 20:50 EDT 04/08/2023 20:51 EDT us Gillian Randolph MD POINT OF CARE TEST ORDERAB LES Final Result Performing Organization Address City/[facility]/ZIP Co de Phone Number [facility] [address] [place] [address] * (ABNORMAL) POCT GLUCOSE, INTERFACED (04/08/2023 18:11 EDT) Glucose, POC 131(H) 70 - 100 mg/dL 04/08/2023 18:12 EDT [facility] HN LAB POC COMMENT (GLUCOSE) Test Performed by Nursing Services 04/08/2023 18:12 EDT [facility] Blood CAPILLARY BLOOD / Unknown 04/08/2023 18:11 EDT 04/08/2023 18:12 EDT us Rick Cuellar MD POINT OF CARE TEST ORDERABL ES Final Result Performing Organization Address [facility]/ZIP Co de Phone Number [facility] [address] [place] [address] * ECG REPORT - SCANNED (04/08/2023 14:56 EDT) 04/08/2023 14:5 6 EDT us Scan 2 Broadcast News Producer PROCEDURE/MINOR SURGICAL OR DERABLES Final Result * (ABNORMAL) POCT GLUCOSE, INTERFACED (04/08/2023 12:37 EDT) Glucose, POC 115(H) 70 - 100 mg/dL 04/08/2023 12:39 EDT [facility] HN LAB POC COMMENT (GLUCOSE) Test Performed by Nursing Services 04/08/2023 12:39 EDT [facility] Blood CAPILLARY BLOOD / Unknown 04/08/2023 12:37 EDT 04/08/2023 12:39 EDT us Gillian Randolph MD POINT OF CARE TEST ORDERAB LES Final Result [facility] [address] [place] [address] * TRANSTHORACIC ECHO (TTE) COMPLETE W/DOPPLER W/CF NO CONTRAST (04/08/2023 11:42 EDT) LA Atrial Length A2C 5.6 cm [facility] POINT OF CARE LA Atrial Area A4C 17.5 cm2 [facility] POINT OF CARE LA ID/bsa, A-P 1.5 [...] OF CARE LV e', lateral 0.10 m/s [facility] POINT OF CARE Mitral deceleration time 187 [...] CARE Mitral E-wave peak velocity 0.7 m/s [facility] POINT OF CARE Mitral A-wave peak velocity 0.8 m/s [facility] POINT OF CARE LV Systolic Volume Index 18.0 mL/m2 [facility] POINT OF CARE LV Diastolic Volume Index 39.0 mL/m2 [facility] POINT OF CARE LA Atrial Length A4C 5.5 cm [facility] POINT OF CARE LVOT ID, S 2.1 cm [facility] POI NT OF CARE EF 53 % [facility] POIN T OF CARE LA volume, ES, BP 44.0 ml [facility] POINT OF CARE LA volume/bsa, ES, A4C 19.0 ml/m2 [facility] POINT OF CARE LA volumes, ES, A4C 41.0 ml [facility] POINT OF CARE LA volume/bsa, ES, BP 21.0 ml/m2 [facility] POINT OF CARE LV Systolic Volume 39 mL [facility] POINT OF CARE LV Diastolic Volume 83 mL [facility] POINT OF CARE Stroke index (SV/bsa) LVOT DP 32.0 ml/m2 [facility] POINT OF CARE Interventricular Septum to Posterior Wall Thickness Ratio 1 [facility] P OINT OF CARE IVS thickness, ED, PLAX 1.1 cm [facility] POINT OF CARE LV e', medial 0.07 m/s [facility] POINT OF CARE LV e', average 0.09 m/s [facility] POINT OF CARE Pulmonic valve mean velocity, S 1 cm/s [facility] POINT OF CARE Ascending aorta ID, a-p 3.2 cm [facility] POINT OF CARE LA Atrial Area A2C 17.5 cm2 [facility] POINT OF CARE LA/aortic root ratio 1.14 [...] color Doppler.The study was interpreted by [facility]. Pertinent images and digital data are archived for permanent storage and are available for subsequent review. Scanning was performed from the apical, parasternal, subcostal and suprasternal acoustic windows. Overall the study quality was adequate. Images were obtained using cardiac ultrasound machine [id number]. us Antonio Majano CARDIAC ECHO ORDERABLES Final Re sult * (ABNORMAL) POCT BLOOD GAS, EG6 I-STAT (04/08/2023 5:11 EDT) pH, Venous, i-STAT 7.38 7.31 - 7.41 04/08/2023 5:15 EDT [facility] pCO2, Venous, i-STAT 29(L) 41 - 51 mmHg 04/08/2023 5:15 EDT [facility] pO2, Venous, i-STAT 57(H) 30 - 50 mmHg 04/08/2023 5:15 T [facility] TCO2, Venous, i-STAT 18(L) 22 - 28 mmol/L 04/08/2023 5:15 T [facility] O2 Saturation, Venous, i-STAT 89(H) 60 - 85 % 04/08/2023 5:15 T [facility] Base Excess(+) / Deficit(-), Venous, i-STAT -7(L) -2 - 3 mmol/L 04/08/2023 5:15 [facility] Blood VENOUS BLOOD / Unknown 04/08/2023 5:11 EDT 04/08/2023 5:15 EDT Narrative [facility] - 04/08/2023 5:15 EDT Test Performed by Respiratory us Antonio Majano POINT OF CARE TEST ORDERABLES Fi nal Result [facility] [address] [place] [address] * XR FEEDING TUBE PLACEMENT (04/08/2023 1:45 [...] above interpretation and agree with the findings. [id number] Procedure Note Ramirez Mendez MD - 04/08/2023 [...] the above interpretation andagree with the findings. [id number] us Ac Fish MD IMG DIAGNOSTIC IMAGING O RDERABLES Final Result * XR CHEST PORTABLE LINE PLACEMENT (04/08/2023 1:44 EDT) Anatomical Region Laterality Modality Chest Computed Radiogr aphy 04/08/2023 8:53 EDT Impressions 04/08/2023 8:53 EDT Endotracheal tube terminates in the lower mid trachea, correlate with positioning of chin and consider retraction. Nasogastric tube separately reported. I have personally reviewed the images and the above interpretation and agree with the findings. [id number] Narrative 04/08/2023 8:53 EDT XR CHEST PORTABLE [...] the above interpretation andagree with the findings. [id number] Antonio Majano [facility] DIAGNOSTIC IMAGING ORDERABLE S Final Result * (ABNORMAL) FENTANYL AND METABOLITE CONFIRMATION PANEL (04/08/2023 1:22 EDT) Fentanyl Confirmation >40(A) <2 ng/mL 04/09/2023 10:36 EDT [facility] Norfentanyl Confirmation 49(A) <10 ng/mL 04/09/2023 10:36 EDT [facility] Urine URINE / Unknown Urine Collect / Unknown 04/08/2023 1:22 EDT 04/08/2023 1:28 EDT Narrative [facility] - 04/09/2023 10:36 EDT Testing performed by: [facility] [address], [address], [place] [address] Fitter Hand: Marco Morocho MD; CLIA # [id number] Antonio Majano GEN LAB UNIT COLLECT ORDERABLES Final Result [facility] [address] [place] [address], [address] [place] [address], [facility] [phone] * CK (04/08/2023 1:22 EDT) CK 82 <=250 U/L 04/08/2023 4:29 EDT [facility] Blood VENOUS BLOOD / Unknown Venipuncture / Unknown 04/08/2023 1:22 EDT 04/08/2023 1:28 EDT Antonio Majano CHEMISTRY & BLOOD GAS ORDERABLES Final Result [facility] [address] [place] [address] * MAGNESIUM (04/08/2023 1:22 EDT) Magnesium 2.0 1.7 - 2.8 mg/dL 04/08/2023 2:08 EDT [facility] Blood VENOUS BLOOD / Unknown Venipuncture / Unknown 04/08/2023 1:22 EDT 04/08/2023 1:28 EDT Gillian Randolph MD CHEMISTRY & BLOOD GAS ORDE RABLES Final Result [facility] [address] [place] [address] * (ABNORMAL) POCT GLUCOSE, INTERFACED (04/08/2023 1:22 EDT) [facility] Glucose, POC 151(H) 70 - 100 mg/dL 04/08/2023 1:23 EDT [facility] HN LAB POC COMMENT (GLUCOSE) Test Performed by Nursing Services 04/08/2023 1:23 EDT [facility] Blood CAPILLARY BLOOD / Unknown 04/08/2023 1:22 EDT 04/08/2023 1:23 EDT Gillian Randolph MD POINT OF CARE TEST ORDERAB LES Final Result [facility] [address] [place] [address] * MRSA PCR (04/08/2023 1:22 EDT) [facility] MRSA/Staph aureus Result Staphylococcus aureus detected by PCR (MRSA NOT detected) 04/08/2023 10:57 EDT [facility] Swab BOTH ANTERIOR NARES / Unknown Swab / Unknown 04/08/2023 1:22 EDT 04/08/2023 1:44 EDT Antonio Majano MICROBIOLOGY - GENERAL ORDERABLE S Final Result Performing Organization Address City/[facility]/ZIP Co de Phone Number [facility] [address] [place] [address] * (ABNORMAL) POLYSUBSTANCE USE PANEL, URINE (04/08/2023 1:22 EDT) [facility] Buprenorphine Screen, Urine Negative <5 ng/mL 04/08/2023 11:51 EDT [facility] Oxycodone Screen, Urine Negative <100 ng/mL 04/08/2023 11:51 EDT [facility] Cotinine Screen, Urine Negative <500 ng/mL 04/08/2023 11:51 EDT [facility] Benzodiazepines Screen, Urine Positive(A) <200 ng/mL 04/08/2023 11:51 EDT [facility] Amphetamines Screen, Urine Negative <1000 ng/mL 04/08/2023 11:51 EDT [facility] Cocaine Metabolite Screen, Urine Negative <150 ng/mL 04/08/2023 11:51 EDT [facility] THC Metabolites Screen, Urine Positive(A) <50 ng/mL 04/08/2023 11:51 EDT [facility] Barbiturates Screen, Urine Negative <200 ng/mL 04/08/2023 11:51 EDT [facility] Opiates Screen, Urine Negative <300 ng/mL 04/08/2023 11:51 EDT [facility] Alcohol Metabolite (EtG) Screen, Urine Negative <500 ng/mL 04/08/2023 11:51 EDT [facility] Methadone Screen, Urine Negative <300 ng/mL 04/08/2023 11:51 EDT [facility] Fentanyl Screen with Reflex to Confirmation, U Positive(A) <1 ng/mL 04/08/2023 11:51 EDT [facility] Comment: Trazodone is known to cross react with the Fentanyl immunoassay and may cause a false positive Urine URINE / Unknown Urine Collect / Unknown 04/08/2023 1:22 EDT 04/08/2023 1:28 EDT Narrative [facility] - 04/08/2023 11:51 EDT Testing performed by: [facility] [address] [place] [address], [facility] [address] [address] Fitter Hand: Marco Morocho MD; CLIA # [id number] Antonio MAURER LAB UNIT COLLECT ORDERABLES Final Result [facility] [address] [place] [address], [facility] [address] [phone] * FIBRINOGEN (04/08/2023 1:22 EDT) [facility] Signature Fibrinogen 323 171 - 384 mg/dL 04/08/2023 1:53 EDT [facility] Blood VENOUS BLOOD / Unknown Venipuncture / Unknown 04/08/2023 1:22 EDT 04/08/2023 1:32 EDT [facility] HEMATOLOGY & PF4 ORDERABLES Val l Result [facility] [address] [place] [address] * PROTIME (04/08/2023 1:22 EDT) [facility] I.N.R. 1.1 0.9 - 1.1 Ratio 04/08/2023 1:53 EDT [facility] Pro Time 12.0 9.7 - 12.8 secs 04/08/2023 1:53 EDT [facility] Blood VENOUS BLOOD / Unknown Venipuncture / Unknown 04/08/2023 1:22 EDT 04/08/2023 1:32 EDT Narrative [facility] - 04/08/2023 1:53 EDT Moderate Intensity Coumadin INR = 2.0-3.0 Adjustments in anticoagulant therapy dose should be based on the INR and NOT on the Protime. [facility] HEMATOLOGY & PF4 ORDERABLES Val l Result Performing Organization Address City/[facility]/ZIP Co de Phone Number [facility] [address] [place] [address] * ETHANOL, BLOOD (04/08/2023 1:22 EDT) [facility] Ethanol, Blood <10 <10 mg/dL mg/dL 04/08/2023 1:52 EDT [facility] Comment:Healthy, non-drinkin g individuals will have an ethanol concentration of <10 mg/dL. Blood VENOUS BLOOD / Unknown Venipuncture / Unknown 04/08/2023 1:22 EDT 04/08/2023 1:28 EDT [facility] CHEMISTRY & BLOOD GAS ORDERABLES Final Result [facility] [address] [place] [address] * TSH (04/08/2023 1:22 EDT) [facility] TSH 0.61 0.47 - 4.68 mIU/L 04/08/2023 2:25 EDT [facility] Blood VENOUS BLOOD / Unknown Venipuncture / Unknown 04/08/2023 1:22 EDT 04/08/2023 1:28 EDT Narrative [facility] - 04/08/2023 2:25 EDT The results of this assay can be falsely lowered due to the consumption of Biotin. [facility] CHEMISTRY & BLOOD GAS ORDERABLES Final Result Performing Organization Address [facility]/ZIP Co de Phone Number [facility] [address] [place] [address] * NT PRO BNP (04/08/2023 1:22 EDT) NT-pro BNP <20 <299 pg/mL 04/08/2023 2:04 EDT [facility] Comment: In the acute setting NT-proBNP values <300 pg/mL have a 98% NPV for excluding acute heart failure. In outpatient populations, NT-proBNP values <125 have a 99% NPV for excluding heart failure. Blood VENOUS BLOOD / Unknown Venipuncture / Unknown 04/08/2023 1:22 EDT 04/08/2023 1:28 EDT [facility] CHEMISTRY & BLOOD GAS ORDERABLES Final Result Performing Organization Address [facility] Co de Phone Number [facility] [address] [place] [address] * (ABNORMAL) COMPREHENSIVE METABOLIC PANEL (CMP) (04/08/2023 1:22 EDT) Sodium 144 136 - 145 mmol/L 04/08/2023 1:52 EDT [facility] Potassium 3.8 3.5 - 5.0 mmol/L 04/08/2023 1:52 EDT [facility] Chloride 111(H) 96 - 110 mmol/L 04/08/2023 1:52 EDT [facility] CO2 Total 19(L) 22 - 32 mmol/L 04/08/2023 1:52 [facility] Glucose 152(H) 70 - 99 mg/dl 04/08/2023 1:52 [facility] BUN 10 10 - 26 mg/dL 04/08/2023 1:52 [facility] Creatinine 0.92 0.66 - 1.25 mg/dL 04/08/2023 1:52 [facility] eGFR 98 >60 mL/min/1.7 3m2 04/08/2023 1:52 [facility] Total Protein 6.2(L) 6.3 - 8.2 g/dL 04/08/2023 1:52 [facility] Albumin 3.7 3.4 - 4.9 g/dL 04/08/2023 1:52 [facility] Alkaline Phosphatase 53 38 - 126 U/L 04/08/2023 1:52 [facility] AST 25 15 - 46 U/L 04/08/2023 1:52 [facility] ALT 18 <50 U/L 04/08/2023 1:52 [facility] Bilirubin, Total <0.5 <1.4 mg/dL 04/08/20 23 1:52 [facility] Calcium 8.5 8.5 - 10.5 mg/dL 04/08/2023 1:52 [facility] Albumin/Globulin Ratio 1.5 1.0 - 2.5 g/dL 04/08/2023 1:52 [facility] Anion Gap 14 5 - 14 mmol/L 04/08/2023 1:52 [facility] Blood VENOUS BLOOD / Unknown Venipuncture / Unknown 04/08/2023 1:22 EDT 04/08/2023 1:28 EDT us Antonio Majano CHEMISTRY & BLOOD GAS ORDERABLES Final Result [facility] [address] [place] [address] * (ABNORMAL) COMPLETE BLOOD COUNT (04/08/2023 1:22 EDT) WBC 13.25(H) 4.00 - 10.40 K/cmm 04/08/2023 1:37 T [facility] RBC 4.61 4.36 - 5.78 M/cmm 04/08/2023 1:37 [facility] Hemoglobin 13.2(L) 13.8 - 17.3 g/dL 04/08/2023 1:37 [facility] HCT 40.8 39.5 - 50.2 % 04/08/2023 1:37 [facility] MCV 89 81 - 95 fL 04/08/2023 1:37 [facility] MCH 28.6 27.6 - 33.0 pg 04/08/2023 1:37 [facility] MCHC 32.4(L) 32.8 - 36.4 g/dL 04/08/2023 1:37 [facility] RDW-CV 14.5(H) <14.2 % 04/08/2023 1:37 [facility] RDW-SD 46.4(H) <46.0 fl 04/08/2023 1:37 [facility] PLT 203 141 - 377 K/cmm 04/08/2023 1:37 [facility] MPV 10.3 9.5 - 12.7 fL 04/08/2023 1:37 [facility] Blood VENOUS BLOOD / Unknown Venipuncture / Unknown 04/08/2023 1:22 EDT 04/08/2023 1:28 EDT us Antonio Majano HEMATOLOGY & PF4 ORDERABLES Val l Result [facility] [address] [place] [address] * EKG 12-LEAD (04/08/2023 0:23 EDT) 04/08/2023 0:23 EDT Narrative [facility] - 04/08/2023 14:50 EDT ? [facility] ? Test Date: ?2023-04-08 Pat Name: ? ROMEO COELHO ?Department: ?? MICU ? Room: ? M412 Gender: ? Male ? Resolution Rep: ?? : ?1965 ? Requested By: TRINA SINGH Order Number: [id number] ? Reading MD: ?? AHMED HARHASH MD ? Measurements Intervals ?[place] ? Rate: ? 81 ? P: ?29 MO: ? 153 ?QRS: ?33 QRSD: ? 98 ? T: ?41 QT: ? 362 ? QTc: ?422 ? Interpretive Statements SINUS RHYTHM I reviewed the tracing and have either agreed or edited the findings in this report. Electronically Signed On 04-08-2023 14:50:57 EDT by BRANDO LAYNE MD. Procedure Note Brando Layne MD - 04/08/2023 [facility] Test Date: 2023-04-08 Pat Name: ROMEO COELHO [facility] Gender: Male Resolution Rep: : 1965 Requested By: TRINA SINGH Order Number: [id number] Tiarra MD: BRANDO LAYNE MD Measurements Intervals [place] Rate: 81 P: 29 MO: 153 QRS: 33 QRSD: 98 T: 41 QT: 362 QTc: 422 Interpretive Statements SINUS RHYTHM I reviewed the tracing and have either agreed or edited the findings inthis report. Electronically Signed On 04-08-2023 14:50:57 EDT by BRANDO BARRAZA. us Antonio Majano CARDIAC ECG ORDERABLES Final Res ult [facility] documented in this encounter Visit Diagnoses Diagnosis Encephalopathy- Primary Encephalopathy, unspecified Acute respiratory failure with hypoxia (HCC-CMS) Acute respiratory failure Cerebrovascular accident (CVA), unspecified mechanism (HCC-CMS) Encephalopathy Encephalopathy, unspecified Syncope, unspecified syncope type Acute respiratory failure with hypoxia (HCC-CMS) Acute respiratory failure Unstable angina (HCC-CMS) (HCC) Intermediate coronary syndrome CAD (coronary artery disease) Coronary atherosclerosis of unspecified type of vessel, yuhaaviatam or graft Anxiety and depression Dysthymic disorder CVA (cerebral vascular accident) ([facility]) Unspecified cerebral artery occlusion with cerebral [...] may reflect changes made after this encounter. pramipexole (MIRAPEX) 0.5 mg tablet Take 1 [...] in ED, PACU or ICU? Yes, Routine 0430 (Given - Provider: Leigha Welsh, VERO) aspirin chewable tablet 81 mg 81 mg, oral, DAILY, First dose on Martha 04/09/23 at 0900, Until Discontinued 903 (Given - Provid er: Aiyana Almonte RN) buPROPion (WELLBUTRIN SR) SR tablet 150 mg 150 mg, oral, 2 TIMES DAILY, First dose on Thu04/08/23 at 2100, Until Discontinued, Routine 2137 (Given - Provider: Airam Brown RN) 09 (Given - Provider: Aiyana Almonte, RN) DULoxetine (CYMBALTA) delayed release capsule 60 mg 60 mg, oral, 2 TIMES DAILY, First dose on Thu04/08/23 at 2100, Until Discontinued, Routine 2137 (Given - Provider: Airam Brown RN) 09 (Given - Provider: Aiyana Almonte, RN) famotidine (PEPCID) injection 20 mg (CANCELED)(Linked Group 1) 20 mg, intravenous, 2 TIMES DAILY, First dose on Thu04/08/23 at 0900, Until Discontinued, Routine 0956 (Given - Provider: Katarzyna Young, VERO) folic acid 1 mg in sodium chloride (NS) 0.9 % 50 mL IVPB 1 mg, intravenous, Administer over 30 Minutes, DAILY, First dose on Thu04/08/23 at 0900, Until Discontinued, Routine 1112 (Given - Provider: Katarzyna Young RN) 1058 (Given - Provider: Aiyana Almonte, RN) gabapentin (NEURONTIN) capsule 800 mg 800 mg, oral, 2 TIMES DAILY, First dose (after last modification) on Thu04/08/23 at 2100, Until Discontinued 2137 (Given - Provider: Airam Brown RN) 09 (Given - Provider: Aiyana Almonte, RN) insulin aspart U-100 (NOVOLOG FLEXPEN) injection subcutaneous, [...] 2137 (Given - Provider: Airam Brown RN) 903 (Given - Provider: Aiyana Almonte, VERO) pantoprazole (PROTONIX) tablet 40 mg 40 mg, oral, 2 TIMES DAILY, First dose on Thu04/08/23 at 2100, Until Discontinued, Routine 2137 (Given - Provider: Airam Brown RN) 903 (Given - Provider: Aiyana Almonte, VERO) pramipexole [...] RN) 09 (Given - Provider: Aiyana Almonte, RN) rosuvastatin (CRESTOR) tablet 20 mg 20 mg, oral, DAILY, First dose on Thu04/09/23 at 0900, Until Discontinued, Routine 09 (Given - Provid er: Aiyana Almonte RN) thiamine (VITAMIN B-1) 100 mg in sodium chloride (NS) 0.9 % 50 mL IVPB 100 mg, intravenous, Administer over 15 Minutes, DAILY, First dose on Thu04/08/23 at 0900, Until Discontinued, Routine 1037 (Given - Provider: Katarzyna Young RN) 1058 (Given - Provider: Aiyana Almonte, VERO) topiramate (TOPAMAX) tablet 25 mg 25 mg, [...] Leigha Welsh RN)0200 (Paused - Provider: Leigha Welsh, RN) PRN Medication Order 04/07/2023 04/08/2023 04/09/2023 [...] at 0000 0000 (Given - Provider: Gage Welsh, VERO)0015 (Completed - Provider: Leigha Welsh RN) Linked [...] 1 04/08/2023 pramipexole (MIRAPEX) tablet 0.25 mg 03/24 pregabalin (LYRICA) capsule 50 mg 1 [...] 03/24 documented in this encounter Care Teams Party Host/Hostess Relationship Specialty Start Date End Date Coni Lim MD [address] [place] [address] PCP - General 12/17/11 documented as of this encounter
--- OUTSIDE RECORDS SUMMARY | 2024-08-05 17:24 | XMS_ITS | Encounter Summary ---
Author Organization [facility] Address [address] [place] [address] Care Team Providers Care Motor Vehicle Escort Driver Name Role Phone Coni Lim MD Primary Care Provider [phone] Encounter Details Date Type Department Care Team (Late st Contact Info) Description 01/28/[address] [facility] [phone] Romi Montanez MD [address] [place] [phone] Social History Tobacco Use Types Packs/Day [...] Author No 03/15/2015 0:00 EDT Feliz Alcantar M * Are you blind or do you have serious difficulty seeing, even when wearing glasses? Answer Date of Assessment Author No 03/15/2015 0:00 EDT Feliz Alcantar M * Do you have serious difficulty walking or climbing stairs? (5 years old or older) Answer Date of Assessment Author No 03/15/2015 0:00 EDT Feliz Alcantar M * Do you have difficulty dressing or [...] ? ROMEO COE ? Accession #: ? [id number] ? : ? 1965 (Age: 50) ??M [...] Morgan 01/30/2016 9:50 AM End of Report [facility] 01/28/2016 8:56 EDT 01/30/2016 8:56 EDT us Romi Montanez MD PATHOLOGY ORDERABLES Final Result [facility] [address] [place] [address] documented in this encounter Visit Diagnoses Not on filedocumented in this encounter Care Teams Motor Vehicle Escort Driver Relationship Specialty Start Date End Date Coni Lim MD [address] [place] [address] PCP - General 12/17/11 documented as of this encounter
--- OUTSIDE RECORDS SUMMARY | 2024-08-05 17:24 | XMS_ITS | Encounter Summary ---
Author Organization [facility] Address [address] [place] [address] Care Team Providers Care Office Machines Teacher Name Role Phone Coni Lim MD Primary Care Provider [phone] Encounter Details Date Type Department Care Team (Late st Contact Info) Description 09/30/2021 Lab Requisition [facility] Pathology & Laboratory Medicine - [facility] [address] [place] [address] Yoon Martinez MD [address] [place] [address] [address] [place], [place] [id number] Encounter for screening for malignant neoplasm of [...] 0:00 Feliz Cardona documented in this encounter Plan of Treatment [...] explore management options, if applicable. 10/01/2021 17:48 [facility] Final Diagnosis A. COLON, ASCENDING, POLYPS X5, BIOPSY: - Fragments of tubular adenomas. B. COLON, DESCENDING, POLYP, BIOPSY: - Hyperplastic polyp. C. COLON, SIGMOID, POLYPS X3, BIOPSY: - Hyperplastic polyps. D. RECTUM, POLYP, BIOPSY: - Tubular adenoma. 10/01/2021 17:48 [facility] Attestation By the signature below, the attending physician certifies that they have 1) personally conducted a gross and/or microscopic examination of the described specimen(s), and/or personally interpreted the results of laboratory testing of the described specimen(s), and 2) personally rendered or confirmed the above diagnosis. 10/01/2021 17:48 [facility] at 1748 Clinical History Colon CA screening, family Hx colon CA 10/01/2021 17:48 [facility] Gross Description A. Received in [...] D1. LENORE MACIAS(ASCP) 10/01/2021 7:36 10/01/2021 17:48 [facility] Performing Lab [facility] 10/01/2021 17:48 [facility] Scanned Images 10/01/2021 17:48 [facility] Tissue SPECIMEN FROM RECTUM / Unknown 09/30/2021 12:30 EST 09/30/2021 18:36 EST Tissue specimen (specimen) DESCENDING COLON STRUCTURE / Unknown 09/30/2021 12:30 EST 09/30/2021 18:36 EST Tissue specimen (specimen) SIGMOID COLON STRUCTURE / Unknown 09/30/2021 12:30 EST 09/30/2021 18:36 EST Tissue specimen (specimen) SPECIMEN FROM RECTUM / Unknown 09/30/2021 12:30 EST 09/30/2021 18:36 EST us Yoon Martinez MD PATHOLOGY ORDERABLES Fin al Result [facility] [address] [place] [address] documented in this encounter Visit Diagnoses Diagnosis Encounter for screening for malignant neoplasm of colon Special screening for malignant neoplasms, colon documented in this encounter Care Teams Office Machines Teacher Relationship Specialty Start Date End Date Coni Lim MD [address] [place] [id number] PCP - General 12/17/11 documented as of this encounter
--- OUTSIDE RECORDS SUMMARY | 2024-08-05 17:24 | XMS_ITS | Encounter Summary ---
Author Organization [facility] Address [address] [place] [address] Care Team Providers Care Complaint Coordinator Name Role Phone Coni Lim MD Primary Care Provider Reason for Visit * (Routine/Next Available) - Receiving Office to Obtain Authorization Specialty Diagnoses / Procedures Referred By Contsigifredo t Referred To Contact Procedures CT OUTSIDE IMAGES HEAD AND NECK Unknown, Provider, MD Referral ID Status Reason Start Date Expiration Date Visits Requested Visits Authorized [id number] Receiving Office to Obtain Authorization 04/07/2023 1 1 Encounter Details Date Type Department Care Team (Latest Contact Info) Description 04/07/2023 20:14 EDT - 04/07/2023 23:44 EDT Hospital Encounter [facility] Secondary Reads [place] Discharge Disposition: Home or [...] on filedocumented in this encounter Care Teams Complaint Coordinator Relationship Specialty Start Date End Date Coni Lim MD [address] [place] [id number] PCP - General 12/17/11 documented as of this encounter
--- OUTSIDE RECORDS SUMMARY | 2024-08-05 17:24 | XMS_ITS | Encounter Summary ---
Author Organization [facility] Address [address] [place] [address] Care Team Providers Care Lockstitch Sleeve Setter Name Role Phone Coni Lim MD Primary Care Provider [phone] Encounter Details Date Type Department Care Team (Late st Contact Info) Description 05/17/2022 Lab Requisition [facility] Pathology & Laboratory Medicine - [facility] [address] [place] [address] Outr Resulting Lab, Provider Social History Tobacco [...] Factor <8.6 <12.0 IU/mL 05/18/2022 15:59 EDT [facility] Blood VENOUS BLOOD / Unknown 05/16/2022 12:56 EDT 05/18/2022 15:42 EDT us Provider Outr Resulting Lab CHEMISTRY & BLOOD GA S ORDERABLES Final Result [facility] [address] [place] [address] * ANTI NUCLEAR AB (BERRY), IFA (05/16/2022 12:56 EDT) BERRY Interpretation Negative Negative 2021 13:48 EDT [facility] Comment:No titer performed, BERRY Screen is negative. Blood VENOUS BLOOD / Unknown 05/16/2022 12:56 EDT 05/18/2022 15:42 EDT Narrative [facility] - 05/19/2022 13:48 EDT Results were obtained with the INOVA NOVA Lite HEp-2 BERRY Kit by indirect immunofluorescence. us Provider Outr Resulting Lab IMMUNOLOGY AND SEROL OGY ORDERABLES Final Result [facility] [address] [place] [address] documented in this encounter Visit Diagnoses Not on filedocumented in this encounter Care Teams Lockstitch Sleeve Setter Relationship Specialty Start Date End Date Coni Lim MD [address] [place] [id number] PCP - General 12/17/11 documented as of this encounter
--- OUTSIDE RECORDS SUMMARY | 2024-08-05 17:24 | XMS_ITS | Encounter Summary ---
Author Organization [facility] Address [address] [place] [address] Care Team Providers Care Tax Assessor Name Role Phone Sarita Lim MD Primary Care Provider [phone] Reason for Referral * Consult (Routine) - Closed Specialty Diagnoses / Procedures Referred By Contac t Referred To Contact Diagnoses S/P coronary artery stent placement Chest pain Kemi Pineda NP Heitzman, Mark, MD Phone: tel: fax: Referral ID Status Reason Start Date Expiration Date V isits Requested Visits Authorized [id number] Closed Specialty Services Required 02/23/2014 1 1 Question Answer Reason for Request: chest pain Scheduling Comments (optional ? describe specific scheduling needs if applicable): already scheduled Expected Discharge Date (Inpatient Only): 02/23/2014 Comments Already scheduled with Dr Leyva February at [address] Leyva's telephone number is [phone]. * Consult (Routine) - Closed Specialty Diagnoses / Procedures Referred By Contac t Referred To Contact Diagnoses S/P coronary artery stent placement Chest pain Kemi Pineda NP Referral ID Status Reason Start Date Expiration Date V isits Requested Visits Authorized [id number] Closed Specialty Services Required 02/22/2014 1 1 Question Answer Reason for Request: chest pain Scheduling Comments (optional ? describe specific scheduling needs if applicable): now, previously requested after 02/15/14 [facility] admission Expected Discharge Date (Inpatient Only): 02/23/2014 Comments Previously requested, please refer to cardiac rehab at [facility] Encounter Details Date Type Department Care Team (Late st Contact Info) Description 02/21/2014 18:30 EDT - 02/23/2014 15:44 EDT Hospital Encounter [facility] Cardiac/Telemetry Unit [address] [place] [id number] Rafy Lopez MD [address] [place] [phone] Jez Ortiz MD [address] [place] [phone] Cali Sage MD [address] [place] [phone] Chest pain (Primary Dx); S/P coronary [...] hearing? Answer Date of Assessment Author No 02/21/2014 19:00 EDT Eb Oropeza R. * Are you blind or do you have serious difficulty seeing, even when wearing glasses? Answer Date of Assessment Author No 02/21/2014 19:00 Eb Yee R. * Do you have serious difficulty walking or climbing stairs? (5 years old or older) Answer Date of Assessment Author No 02/21/2014 19:00 Eb Yee R. * Do you have difficulty dressing or bathing? (5 years old or older) Answer Date of Assessment Author No 02/21/2014 19:00 EDEb Herrera R. * Because of a physical, mental, or emotional condition, do you have difficulty doing errands alone such as visiting a doctor's office or shopping? (15 years old or older) Answer Date of Assessment Author No 02/21/2014 19:00 Eb Yee. documented as of this encounter Mental Status * Because of a physical, mental, or emotional condition, do you have serious difficulty concentrating, remembering, or making decisions? (5 years old or older) Answer Entry Date Author Yes 02/21/2014 19:00 Eb Yee. documented in this encounter Discharge Summaries * Jez Ortiz [...] with PMH of CAD s/p PCI at [facility] in May 2012 and Jul 2013 and admitted at [facility] on 02/15 for USAP and received JACINDA [...] unremitting chest pain and was taken to [facility]. There, troponin and EKG were negative of signs of ischemia. He was started on heparin and nitro gtt and transferred to [facility] for unstable angina. On arrival his [...] requested, please refer to cardiac rehab at [facility] Reason for Request: chest pain Expected Discharge Date (Inpatient Only): 02/23/2014 Scheduling Time Frame: now, previously requested after 02/15/14 [facility] admission CONSULT: Consulting provider to render an [...] [address] Leyva's telephone number is [phone]. Reason for Request: chest pain Expected Discharge [...] the resident's note. Jez Ortiz Jr., MD technical expert [facility] Pager [phone] documented in this encounter [...] of this encounter Ordered Prescriptions Prescription Sig Dispense Quantity Refills Last Filled Start Date End Date ranolazine (RANEXA) 500 mg SR tablet Take 1 Tab by mouth 2 times daily. 60 Tab 3 02/23/2014 documented in this encounter Discharge Disposition Disposition Code Departure Means Destination Home or Self Care documented in this encounter Progress Notes * Kemi Pineda NP - 02/23/2014 1209 EDT Stress test results reviewed with stress medical laboratory technician. Exercised for almost 7 minutes and patient stoppedhis own test secondary to ANDERSON. Experienced minimal chest tightness, = 1, scale 1-10, which resolvedalmost immediately. Stress EKG negative for ischemia. Reviewed with Dr Arechiga. Plan: discharge home on current dose Ranexa with patient instructions forlow exertional level to allow for full effect of Ranexa at 2 weeks. Follow up as scheduled: Dr Leyva [facility], cardiac rehab [facility], tobacco cessation. Tele: NSR 63, no events Exam: CV: S1 S2 no m/r/g Lungs CTA bilaterally Right radial: 2+ no residual ecchymosis or hematoma from 02/15/14 PCI Voiding without difficulty, no dyspepsia Assess: stable for discharge Plan: home today on Ranexa with limited exercise until fully therapeutic Follow up scheduled with Dr Leyva in [facility] Cardiac rehab [facility] Continue smoking cessation D/w Ludwig Tracy and Moo * Alyssa Phan - 02/23/2014 0901 EDT Spoke with Fany at [facility] transport. They will need a call when patient is ready [phone]. After 4:30pm call [phone]. 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 in front of the [facility] Alyssa Phan RN CM #[id number] * Kemi Pineda NP - 02/22/2014 1712 [...] WBC/Hgb/Hct/Plts: 8.93/14.6/42.7/177 (02/22 619) BMP: Recent Labs 02/21/14190702/22/14 0619 NA 143 143 K 3.9 4.0 CL 106 105 CO2 25 28 BUN 8* 9* CREATININE 0.72 0.80 Coags: Recent Labs 02/21/14213502/22/14 0201 02/22/14 0619 PTT 64* 71* 70* FSBS: Recent Labs 02/21/144 02/21/14 2206 02/22/14 0630 02/22/14 1115 GLUCOSEFINGE 72 86 131* 102* Cardiac Biomarkers: Recent Labs 02/21/14190702/22/14 0201 07/02/14 1004 CK 38 36 53 MB <0.22 [...] with PMH of CAD s/p PCI at [facility] in May 2012 and Jul [...] POA &/or COLST IN PLACE: No CULTURAL, GNOSTICIST and/or LANGUAGE factors affecting health care/discharge planning:: [...] with transportation. 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 He will have a stress test today. [...] with PMH of CAD s/p PCI at [facility] in May 2012 and Jul [...] unremitting chest pain and was taken to [facility]. There, troponin and EKG were negative. He was started on heparin and nitro gtt and transferred to [facility] for observation. 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 Living situation: Lives in [place], [place], with . Family History Problem Relation [...] the resident's note. Jez Ortiz Jr., MD technical expert [facility] Pager [phone] documented in this encounter Procedure Notes * Eagle Fernando RN - 02/23/2014 0856 EDTProcedure(s): EXERCISE TOLERANCE TEST Preliminary Stress Lab [...] Laterality Modality Other 03/09/2014 16:1 4 EDT us Scan 2 Coagulation Operator IMG OTHER IMAGING ORDERABLE S Final Result * ECG REPORT - SCANNED (03/01/2014 15:54 EDT) 03/01/2014 15:5 4 EDT us Scan 2 Coagulation Operator PROCEDURE/MINOR SURGICAL OR DERABLES Final Result * ECG REPORT - SCANNED (02/27/2014 12:40 EDT) 02/27/2014 12:4 0 EDT us Scan 2 Coagulation Operator PROCEDURE/MINOR SURGICAL OR DERABLES Final Result * (ABNORMAL) GLUCOSE, GLUCOMETER (02/23/2014 11:41 EDT) Glucose, Fingerstick 185(H) 70 - 100 mg/dl [facility] [employer] Service Dispatcher ID [id number] [facility] Comment:Test Performed by [employer] 02/23/2014 11:4 1 EDT 02/23/2014 11:42 EDT us Jez Ortiz MD CHEMISTRY & BLOOD GAS ORDERAB LES Final Result [facility] [address] [place] [address] * (ABNORMAL) GLUCOSE, GLUCOMETER (02/23/2014 9:28 EDT) Glucose, Fingerstick 153(H) 70 - 100 mg/dl [facility] [employer] Dispatcher ID [id number] [facility] Comment:Test Performed by [employer] 02/23/2014 9:28 EDT 02/23/2014 9:29 EDT us Rafy Lopez MD CHEMISTRY & BLOOD GAS ORD ERABLES Final Result [facility] [address] [place] [address] * EXERCISE TOLERANCE TEST WAVEFORM (02/23/2014 8:44 EDT) Anatomical Region Laterality Modality Other 02/23/2014 8:44 EDT Narrative 02/23/2014 8:46 EDT For report of this Waveform, see associated Image Study. ?[facility] ? Test Date: ?2014-02-23 Pat Name: ? ROMEO COELHO ?Department: ?? STRESS ? Room: ? Gender: ? 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 Requested By: ROSSANA Tenorio Order Number: [id number] ?Reading : ? Interpretive Statements Procedure Note 02/23/2014 For report of this Waveform, see associated Image Study. [facility] Test Date: 2014-02-23 Pat Name: ROMEO COELHO Department: STRESS Room: Gender: M Land Survey Technician: [id number] : 1965 Requested By: ROSSANA Tenorio Order Number: [id number] Tiarra MD: Interpretive Statements Jermaine Tracy MD CARDIAC SERVICES ORDERABLES Final Result * EXERCISE TOLERANCE TEST (02/23/2014 7:30 EDT) Anatomical Region Laterality Modality Other 02/23/2014 7:30 EDT Narrative 03/03/2014 13:21 EDT *[facility]* [address] [place] [address] *Interpreting Group:* *[facility]* [address] [place] [address] Stress Electrocardiography Supa protocol *PATIENT PRESENTATION* Height: [...] chest pain became unremitting. Pt went to [facility] where EKG negative and troponin negative and reansferred to [facility]. Troponin negative here. Pt is S/P PCI at [facility] May 2012 and Jul 2013. [...] min ? 72 122/68 (86) ? Subsiding, ./10 ? chest discomfort ? + +---+ +------+ [...] peak heart rate and blood pressure was 31737qs Hg/min. ??1 out of 10 stress-induced chest [...] Note 03/03/2014 *[facility]* [address] [place] [address] *Interpreting Group:* *[facility]* [address] [place] [address] Stress Electrocardiography Supa protocol *PATIENT PRESENTATION* Height: [...] when chest painbecame unremitting. Pt went to [facility] where EKG negative andtroponin negative and reansferred to [facility]. Troponin negative here. Pt is S/P PCI at [facility] May 2012 and Jul 2013. [...] the peak heart rate andblood pressure was 11078tb Hg/min. 1 out of 10 stress-induced chest [...] 03/03/2014 13:21 Jermaine Tracy MD CARDIAC SERVICES ORDERABLES Final Result * (ABNORMAL) GLUCOSE, GLUCOMETER (02/23/2014 6:40 EDT) Pathologist [facility] Glucose, Fingerstick 137(H) 70 - 100 mg/dl [facility] [employer] Dispatcher ID [id number] [facility] Comment:Test Performed by [facility] 02/23/2014 6:40 EDT 02/23/2014 6:44 EDT Rafy Lopez MD CHEMISTRY & BLOOD GAS ORD ERABLES Final Result [facility] [address] [place] [address] * HEMAGRAM (02/23/2014 5:33 EDT) Pathologist [facility] WBC 8.20 4.0 - 10.4 K/cmm [facility] RBC 5.15 4.36 - 5.78 M/cmm [facility] Hemoglobin 15.5 13.8 - 17.3 gm/dl [facility] HCT 44.4 39.5 - 50.2 % [facility] MCV 86 81 - 95 fl [facility] MCH 30.0 27.6 - 33.0 pg [facility] MCHC 34.8 32.8 - 36.4 gm/dl [facility] PLT 180 141 - 320 K/cmm [facility] RDW-CV 14.0 11.8 - 14.1 % [facility] 02/23/2014 5:33 EDT 02/23/2014 5:45 EDT us Endy Mack MD HEMATOLOGY & PF4 ORDERABLES Fin al Result Performing Organization Address [facility] de Phone Number [facility] [address] [place] [address] * CREATININE (02/23/2014 5:33 EDT) Creatinine 0.76 0.66 - 1.25 mg/dl [facility] GFR, Calculated >60 >60 ml/min/1.7 3m2 [facility] 02/23/2014 5:33 EDT 02/23/2014 5:45 EDT us Endy Mack MD CHEMISTRY & BLOOD GAS ORDERABLE S Final Result Performing Organization Address [facility] de Phone Number [facility] [address] [place] [address] * (ABNORMAL) BUN (02/23/2014 5:33 EDT) BUN 9(L) 10 - 26 mg/dl [facility] 02/23/2014 5:33 EDT 02/23/2014 5:45 EDT us Endy Mack MD CHEMISTRY & BLOOD GAS ORDERABLE S Final Result Performing Organization Address [facility] de Phone Number [facility] [address] [place] [address] * ELECTROLYTES (02/23/2014 5:33 EDT) Sodium 141 136 - 145 mEq/L [facility] Potassium 4.0 3.5 - 5.0 mEq/L [facility] Chloride 106 96 - 110 mEq/L [facility] CO2 24 24 - 32 mEq/L [facility] 02/23/2014 5:33 EDT 02/23/2014 5:45 EDT us Endy Mack MD CHEMISTRY & BLOOD GAS ORDERABLE S Final Result Performing Organization Address [facility]/ZIP Co de Phone Number [facility] [address] [place] [address] * (ABNORMAL) PTT (02/23/2014 5:33 EDT) PTT 73(H) 26 - 37 secs [facility] Comment:Therapeutic Heparin range: 65-100 seconds Blood specimen (specimen) 02/23/2014 5:33 EDT 02/23/2014 5:45 EDT us Jermaine Tracy MD HEMATOLOGY & PF4 ORDERABLES Final Result Performing Organization Address [facility] de Phone Number [facility] [address] [place] [address] * (ABNORMAL) GLUCOSE, GLUCOMETER (02/22/2014 20:43 EDT) Glucose, Fingerstick 110(H) 70 - 100 mg/dl [facility] [employer] Dispatcher ID [id number] [facility] Comment:Test Performed by [facility] 02/22/2014 20:4 3 EDT 02/22/2014 20:49 EDT us Rafy Lopez MD CHEMISTRY & BLOOD GAS ORD ERABLES Final Result Performing Organization Address [facility] de Phone Number [facility] [address] [place] [address] * INPATIENT ADD-ON (02/22/2014 19:20 EDT) Tests to be added PLEASE ADD CK, MB TO PREVIOUS TESTING [facility] Comment: THANK YOU CKMB Number for problems [id number] [facility] Accession number [id number] [facility] 02/22/2014 19:2 0 EDT 02/22/2014 19:23 EDT us Rafy Lopez MD HEMATOLOGY & PF4 ORDERABL ES Final Result Performing Organization Address [facility] Co de Phone Number [facility] [address] [place] [address] * CK MB WITH TOTAL CK (02/22/2014 17:21 EDT) CK 40 0 - 250 U/L [facility] MB <0.22 <4.21 ng/ml [facility] 02/22/2014 17:2 1 EDT 02/22/2014 17:32 EDT us Jermaine Tracy MD CHEMISTRY & BLOOD GAS ORDER CARTER Final Result [facility] [address] [place] [address] * TROPONIN I (02/22/2014 17:21 EDT) Troponin I (ng/mL) <0.034 <0.034 ng/ml [facility] Blood specimen (specimen) 02/22/2014 17:21 EDT 02/22/2014 17:32 EDT us Jermaine Tracy MD CHEMISTRY & BLOOD GAS ORDER CARTER Final Result Performing Organization Address [facility] Co de Phone Number [facility] [address] [place] [address] * (ABNORMAL) GLUCOSE, GLUCOMETER (02/22/2014 16:32 EDT) Glucose, Fingerstick 144(H) 70 - 100 mg/dl [facility] [employer] Service Dispatcher ID [id number] [facility] Comment:Test Performed by [facility] 02/22/2014 16:3 2 EDT 02/22/2014 16:36 EDT Rafy Lopez MD CHEMISTRY & BLOOD GAS ORD ERABLES Final Result Performing Organization Address City/[facility] Co de Phone Number [facility] [address] [place] [address] * (ABNORMAL) GLUCOSE, GLUCOMETER (02/22/2014 11:15 EDT) Glucose, Fingerstick 102(H) 70 - 100 mg/dl [facility] [employer] Dispatcher ID [id number] [facility] Comment:Test Performed by [facility] 02/22/2014 11:1 5 EDT 02/22/2014 11:23 EDT Rafy Lopez MD CHEMISTRY & BLOOD GAS ORD ERABLES Final Result Performing Organization Address [facility] de Phone Number [facility] [address] [place] [address] * CK MB WITH TOTAL CK (02/22/2014 10:04 EDT) Pathologist [facility] CK 53 0 - 250 U/L [facility] Comment: Slight hemolysis Results may be affected due to hemolysis. MB <0.22 <4.21 ng/ml [facility] Comment: Slight hemolysis Results may be affected due to hemolysis. Blood specimen (specimen) 02/22/2014 10:04 EDT 02/22/2014 10:22 EDT Jermaine Tracy MD CHEMISTRY & BLOOD GAS ORDER CARTER Final Result Performing Organization Address [facility] de Phone Number [facility] [address] [place] [address] * TROPONIN I (02/22/2014 10:04 EDT) [facility] Troponin I (ng/mL) <0.034 <0.034 ng/ml [facility] Comment: Slight hemolysis Results may be affected due to hemolysis. Blood specimen (specimen) 02/22/2014 10:04 EDT 02/22/2014 10:22 EDT Jermaine Tracy MD CHEMISTRY & BLOOD GAS ORDER CARTER Final Result Performing Organization Address [facility] de Phone Number [facility] [address] [place] [address] * (ABNORMAL) GLUCOSE, GLUCOMETER (02/22/2014 6:30 EDT) Pathologist [facility] Glucose, Fingerstick 131(H) 70 - 100 mg/dl [facility] [employer] Dispatcher ID [id number] [facility] Comment:Test Performed by [facility] 02/22/2014 6:30 EDT 02/22/2014 6:45 EDT us Rafy Lopez MD CHEMISTRY & BLOOD GAS ORD ERABLES Final Result Performing Organization Address [facility] Co de Phone Number [facility] [address] [place] [address] * HEMAGRAM (02/22/2014 6:19 EDT) WBC 8.93 4.0 - 10.4 K/cmm [facility] RBC 4.94 4.36 - 5.78 M/cmm [facility] Hemoglobin 14.6 13.8 - 17.3 gm/dl [facility] HCT 42.7 39.5 - 50.2 % [facility] MCV 86 81 - 95 fl [facility] MCH 29.6 27.6 - 33.0 pg [facility] MCHC 34.3 32.8 - 36.4 gm/dl [facility] PLT 177 141 - 320 K/cmm [facility] RDW-CV 14.1 11.8 - 14.1 % [facility] 02/22/2014 6:19 EDT 02/22/2014 6:41 EDT Endy Mack MD HEMATOLOGY & PF4 ORDERABLES Fin al Result Performing Organization Address [facility] de Phone Number [facility] [address] [place] [address] * CREATININE (02/22/2014 6:19 EDT) Creatinine 0.80 0.66 - 1.25 mg/dl [facility] GFR, Calculated >60 >60 ml/min/1.7 3m2 [facility] 02/22/2014 6:19 EDT 02/22/2014 6:41 EDT Endy Mack MD CHEMISTRY & BLOOD GAS ORDERABLE S Final Result Performing Organization Address City/[facility]/ZIP Co de Phone Number [facility] [address] [place] [address] * (ABNORMAL) BUN (02/22/2014 6:19 EDT) Pathologist [facility] BUN 9(L) 10 - 26 mg/dl [facility] 02/22/2014 6:19 EDT 02/22/2014 6:41 EDT us Endy Mack MD CHEMISTRY & BLOOD GAS ORDERABLE S Final Result Performing Organization Address [facility] de Phone Number [facility] [address] [place] [address] * ELECTROLYTES (02/22/2014 6:19 EDT) [facility] Sodium 143 136 - 145 mEq/L [facility] Potassium 4.0 3.5 - 5.0 mEq/L [facility] Chloride 105 96 - 110 mEq/L [facility] CO2 28 24 - 32 mEq/L [facility] 02/22/2014 6:19 EDT 02/22/2014 6:41 EDT us Endy Mack MD CHEMISTRY & BLOOD GAS ORDERABLE S Final Result Performing Organization Address [facility] de Phone Number [facility] [address] [place] [address] * (ABNORMAL) PTT (02/22/2014 6:19 EDT) [facility] PTT 70(H) 26 - 37 secs [facility] Comment:Therapeutic Heparin range: 65-100 seconds Blood specimen (specimen) 02/22/2014 6:19 EDT 02/22/2014 6:41 EDT us Jermaine Tracy MD HEMATOLOGY & PF4 ORDERABLES Final Result Performing Organization Address [facility] de Phone Number [facility] [address] [place] [address] * CK MB WITH TOTAL CK (02/22/2014 2:01 EDT) [facility] CK 36 0 - 250 U/L [facility] MB <0.22 <4.21 ng/ml [facility] Blood specimen (specimen) 02/22/2014 2:01 EDT 02/22/2014 2:06 EDT Jermaine Tracy MD CHEMISTRY & BLOOD GAS ORDER CARTER Final Result Performing Organization Address [facility] de Phone Number [facility] [address] [place] [address] * (ABNORMAL) PTT (02/22/2014 2:01 EDT) [facility] PTT 71(H) 26 - 37 secs [facility] Comment:Therapeutic Heparin range: 65-100 seconds Blood specimen (specimen) 02/22/2014 2:01 EDT 02/22/2014 2:06 EDT Jermaine Tracy MD HEMATOLOGY & PF4 ORDERABLES Final Result Performing Organization Address [facility] de Phone Number [facility] [address] [place] [address] * TROPONIN I (02/22/2014 2:01 EDT) [facility] Troponin I (ng/mL) <0.034 <0.034 ng/ml [facility] Blood specimen (specimen) 02/22/2014 2:01 EDT 02/22/2014 2:06 EDT Jermaine Tracy MD CHEMISTRY & BLOOD GAS ORDER CARTER Final Result Performing Organization Address [facility] de Phone Number [facility] [address] [place] [address] * GLUCOSE, GLUCOMETER (02/21/2014 22:06 EDT) [facility] Glucose, Fingerstick 86 70 - 100 mg/dl [facility] [employer] Dispatcher ID [id number] [facility] Comment:Test Performed by [facility] 02/21/2014 22:0 6 EDT 02/21/2014 22:19 EDT us Rafy Lopez MD CHEMISTRY & BLOOD GAS ORD ERABLES Final Result Performing Organization Address [facility] de Phone Number [facility] [address] [place] [address] * (ABNORMAL) PTT (02/21/2014 21:36 EDT) PTT 64(H) 26 - 37 secs [facility] Comment:Therapeutic Heparin range: 65-100 seconds Blood specimen (specimen) 02/21/2014 21:36 EDT 02/21/2014 21:43 EDT us Jermaine Tracy MD HEMATOLOGY & PF4 ORDERABLES Final Result Performing Organization Address [facility] de Phone Number [facility] [address] [place] [address] * GLUCOSE, GLUCOMETER (02/21/2014 19:54 EDT) Glucose, Fingerstick 72 70 - 100 mg/dl [facility] [employer] Dispatcher ID [id number] [facility] Comment:Test Performed by [facility] 02/21/2014 19:5 4 EDT 02/21/2014 19:56 EDT us Rafy Lopez MD CHEMISTRY & BLOOD GAS ORD ERABLES Final Result Performing Organization Address [facility] de Phone Number [facility] [address] [place] [address] * CREATININE (02/21/2014 19:08 EDT) Creatinine 0.72 0.66 - 1.25 mg/dl [facility] GFR, Calculated >60 >60 ml/min/1.7 3m2 [facility] Blood specimen (specimen) 02/21/2014 19:08 EDT 02/21/2014 19:19 EDT us Jermaine Tracy MD CHEMISTRY & BLOOD GAS ORDER CARTER Final Result Performing Organization Address [facility] Co de Phone Number [facility] [address] [place] [address] * (ABNORMAL) BUN (02/21/2014 19:08 EDT) BUN 8(L) 10 - 26 mg/dl [facility] Blood specimen (specimen) 02/21/2014 19:08 EDT 02/21/2014 19:19 EDT Jermaine Tracy MD CHEMISTRY & BLOOD GAS ORDER CARTER Final Result Performing Organization Address [facility] de Phone Number [facility] [address] [place] [address] * (ABNORMAL) HEMAGRAM (02/21/2014 19:08 EDT) WBC 10.88(H) 4.0 - 10.4 K/cmm [facility] RBC 4.87 4.36 - 5.78 M/cmm [facility] Hemoglobin 14.3 13.8 - 17.3 gm/dl [facility] HCT 41.9 39.5 - 50.2 % [facility] MCV 86 81 - 95 fl [facility] MCH 29.3 27.6 - 33.0 pg [facility] MCHC 34.1 32.8 - 36.4 gm/dl [facility] PLT 189 141 - 320 K/cmm [facility] RDW-CV 13.9 11.8 - 14.1 % [facility] Blood specimen (specimen) 02/21/2014 19:08 EDT 02/21/2014 19:19 EDT us Jermaine Tracy MD HEMATOLOGY & PF4 ORDERABLES Final Result Performing Organization Address [facility] de Phone Number [facility] [address] [place] [address] * ELECTROLYTES (02/21/2014 19:08 EDT) Sodium 143 136 - 145 mEq/L [facility] Potassium 3.9 3.5 - 5.0 mEq/L [facility] Chloride 106 96 - 110 mEq/L [facility] CO2 25 24 - 32 mEq/L [facility] Blood specimen (specimen) 02/21/2014 19:08 EDT 02/21/2014 19:19 EDT us Jermaine Tracy MD CHEMISTRY & BLOOD GAS ORDER CARTER Final Result Performing Organization Address [facility] de Phone Number [facility] [address] [place] [address] * CK MB WITH TOTAL CK (02/21/2014 19:08 EDT) CK 38 0 - 250 U/L [facility] MB <0.22 <4.21 ng/ml [facility] Blood specimen (specimen) 02/21/2014 19:08 EDT 02/21/2014 19:19 EDT us Jermaine Tracy MD CHEMISTRY & BLOOD GAS ORDER CARTER Final Result Performing Organization Address [facility] de Phone Number [facility] [address] [place] [address] * TROPONIN I (02/21/2014 19:08 EDT) Troponin I (ng/mL) <0.034 <0.034 ng/ml [facility] Blood specimen (specimen) 02/21/2014 19:08 EDT 02/21/2014 19:19 EDT us Jermaine Tracy MD CHEMISTRY & BLOOD GAS ORDER CARTER Final Result Performing Organization Address [facility] de Phone Number [facility] [address] [place] [address] * EKG 12-LEAD (02/21/2014 18:59 EDT) 02/21/2014 18:5 9 EDT Narrative [facility] EKG - 02/22/2014 16:34 EDT ?[facility] ? Test Date: ?2014-02-21 Pat Name: ? ROMEO COELHO ?Department: ?? [facility] ? Room: ? ME506 Gender: ? M ?Land Survey Technician: ?? [id number] : ?1965 ? Requested By: JERMAINE TRACY MD Order Number: [id number] ? Reading MD: ?? TUYET ADES MD ? Measurements Intervals ?[place] ? Rate: ? 63 ? P: ?10 WV: ? 155 ?QRS: ?15 QRSD: ? 101 ?T: ?29 QT: ? 390 ? QTc: ?400 ? Interpretive Statements SINUS RHYTHM Within Normal Limits Compared to ECG 02/15/2014 14:19:22 Sinus rhythm now present I reviewed the tracing and agreed or edited the report. Electronically Signed On 02-22-14 16:34:29 EDT by TUYET CASTRO MD. Procedure Note Tuyet Castro MD - 02/22/2014 [facility] Test Date: 2014-02-21 Pat Name: ROMEO COELHO Department: [place] [address] Room: [facility] [place] Gender: M Land Survey Technician: [id number] : 1965 Requested By: JERMAINE TRACY MD Order Number: [id number] Reading MD: TUYET CASTRO MD Measurements Intervals [place] Rate: 63 P: 10 WV: 155 QRS: 15 QRSD: 101 T: 29 QT: 390 QTc: 400 Interpretive Statements SINUS RHYTHM Within Normal Limits Compared to ECG 02/15/2014 14:19:22 Sinus rhythm now present I reviewed the tracing and agreed or edited the report. ElectronicallySigned On 02-22-14 16:34:29 EDT by TUYET CASTRO MD. us Jermaine Tracy MD CARDIAC ECG ORDERABLES [place] Result [facility] EKG documented in this encounter Visit Diagnoses Diagnosis Unstable angina ([facility])- Primary Intermediate coronary syndrome Chest pain Chest pain, unspecified S/P coronary artery stent placement Postsurgical percutaneous transluminal coronary angioplasty status CAD (coronary artery disease) Coronary atherosclerosis of unspecified type of vessel, [place] or graft CAD (coronary artery disease) Coronary atherosclerosis of unspecified type of vessel, [place] or graft documented in this encounter Administered [...] 1006 (Given - Provider: Yessenia Isabel RN) 075 [...] RN)2046 (Given - Provider: Darcy Pompa RN) 0753 (Given - Provider: Justin Vivar [...] Medication Order 02/21/2014 02/22/2014 02/23/2014 heparin in 1/2 NS 25,000 unit/250 mL infusion (CANCELED) 15 [...] First Orde red Date DISCONTINUE SALINE LOCK/IV/PICC 1 4 ACTIVITY INSTRUCTIONS 3 02/22/2014 BATHING INSTRUCTIONS 1 02/22/2014 WOUND CARE INSTRUCTIONS 2 02/22/2014 VTE PHARMACOLOGIC PROPHYLAXI S CURRENTLY ORDERED OR ON ALTERNATIVE THER 1 02/21/2014 Admission Count Last Ordered Date First Orde red Date STATUS: OUTPATIENT OBSERVATION SERVICES 1 0 02/21/2014 Transfer Count Last Ordered Date First Orde red Date CHANGE ATTENDING TO: 1 02/23/2014 NOTIFY PPS OF DISCHARGE COMPLETE 02/24/20 14 Discharge Count Last Ordered Date First Orde red Date DISCHARGE PATIENT 1 02/23/2014 Legal Count Last Ordered Date First Orde red Date MISCELLANEOUS DISCHARGE INSTRUCTIONS 09/2013 documented in this encounter Care Teams Tax Assessor Relationship Specialty Start Date End Date Sarita Lim MD [address] [place] [address] PCP - General 12/17/11 documented as of this encounter
--- OUTSIDE RECORDS SUMMARY | 2024-08-05 17:24 | XMS_ITS | Encounter Summary ---
Author Organization [facility] Address [address] [place] [address] Care Team Providers Care International Accountant Name Role Phone Coni Lim MD Primary Care Provider [phone] Encounter Details Date Type Department Care Team [...] Feliz Cardona M * Do you have difficulty dressing or bathing? (5 years old or older) Answer Date of Assessment Author No 03/15/2015 0:00 Feliz Cardona M * Because of a physical, mental, or emotional condition, do you have difficulty doing errands alone such as visiting a doctor's office or shopping? (15 years old or older) Answer Date of Assessment Author No 03/15/2015 0:00 EDFeliz Cole documented as of this encounter Mental Status [...] on filedocumented in this encounter Care Teams International Accountant Relationship Specialty Start Date End Date Coni Lim MD [address] [place] [id number] PCP - General 12/17/11 documented as of this encounter
--- OUTSIDE RECORDS SUMMARY | 2024-08-05 17:24 | XMS_ITS | Encounter Summary ---
Author Organization [facility] Address [address] [place] [address] Care Team Providers Care Mine Engineering Supervisor Name Role Phone Coni Lim MD Primary Care Provider [phone] Reason for Visit * (Routine/Next Available) - Receiving Office to Obtain Authorization Specialty Diagnoses / Procedures Referred By Contsigifredo t Referred To Contact Procedures XR OUTSIDE IMAGES CHEST Unknown, Provider, MD Referral ID Status Reason Start Date Expiration Date Visits Requested Visits Authorized [id number] Receiving Office to Obtain Authorization 04/07/2023 1 1 Encounter Details Date Type Department Care Team (Latest Contact Info) Description 04/07/2023 20:10 EDT Hospital Encounter [facility] Secondary Reads [place] Discharge Disposition: Home [...] Assessment Author No 03/15/2015 0:00 EDFeliz Cole * Because of a physical, mental, or [...] 20:17 EDT This is a non-reportable exam. us Provider Unknown MD DAVIES OTHER IMAGING ORDERABLES Final Result documented in this encounter Visit Diagnoses Not on filedocumented in this encounter Care Teams Mine Engineering Supervisor Relationship Specialty Start Date End Date Coni Lim MD [address] [place] [address] PCP - General 12/17/11 documented as of this encounter
--- OUTSIDE RECORDS SUMMARY | 2024-08-05 17:24 | XMS_ITS | Encounter Summary ---
Author Organization [facility] Address [address] [place] [address] Care Team Providers Care Guidance Counselor Name Role Phone Coni Lim MD Primary Care Provider [phone] Encounter Details Date Type Department Care Team (Latest Contact Info) Description 01/28/2016 9:36 EDT - 01/28/2016 23:59 EDT Hospital Encounter [address] [address] Unknown, Provider, MD Discharge Disposition: Home or Self Care Social [...] Answer Entry Date Author No 03/15/2015 0:00 BRIAN Feliz Alcantar documented in this encounter Medications at Time [...] Code Departure Means Destination Home or Self Residential documented in this encounter Plan of Treatment Not on file documented as of this encounter Visit Diagnoses Not on filedocumented in this encounter Care Teams Guidance Counselor Relationship Specialty Start Date End Date Coni Lim MD [address] [place] [address] PCP - General 12/17/11 documented as of this encounter
--- OUTSIDE RECORDS SUMMARY | 2024-08-05 17:24 | XMS_ITS | Encounter Summary ---
Author Organization [facility] Address [address] [place] [address] Care Team Providers Care Sales Trainee Name Role Phone Coni Lim MD Primary Care Provider [phone] Reason for Visit * (Routine/Next Available) - Receiving Office to Obtain Authorization Specialty Diagnoses / Procedures Referred By Contsigifredo t Referred To Contact Procedures CT OUTSIDE IMAGES HEAD Unknown, Provider, MD Referral ID Status Reason Start Date Expiration Date Visits Requested Visits Authorized [id number] Receiving Office to Obtain Authorization 04/07/2023 1 1 Encounter Details Date Type Department Care Team (Latest Contact Info) Description 04/07/2023 20:10 EDT Hospital Encounter [facility] Secondary Reads [place] Discharge Disposition: [...] on filedocumented in this encounter Care Teams Sales Trainee Relationship Specialty Start Date End Date Coni Lim MD [address] [place] [address] PCP - General 12/17/11 documented as of this encounter
--- OUTSIDE RECORDS SUMMARY | 2024-08-05 17:25 | XMS_ITS | Encounter Summary ---
Author Organization [facility] Address [address] [place] [address] Care Team Providers Care Measurer Name Role Phone Unavailable Primary Care Provider Unavailabl e Encounter Details Date Type Department Care Team (Late st Contact Info) Description 11/13/2008 Before PRISM Converted Visit ([facility] conversion [address] [place] [address] Irving Jha MD [address] [place] [id number] Social History Tobacco Use Types Packs/Day Years [...] reading/interpreti ng unformatted reports. ? Name: ? ROMEO COE ? Accession #: ? [id number] ? : ? 1965 (Age: 43) ??M ? Collect Date: ? 11/13/2008 ? Location: ? [facility] ? Receive Date: ? 11/14/2008 ? Provider: IRVING JHA MD ? Copy to: SARITA BERRIAN MD ? Final Pathologic Diagnosis: ? A. [...] the rectal biopsy (specimen B). ??( ?? [facility] ? Document reviewed and electronically signed by: ? Joo Hong MD ? Report ??Date: 11/17/2008 17:10 ? By [...] cancer ? Gross Description: ? Received in Bere's fixative labelled Romeo Coe and #1 bx ? terminal ileum are three biopsies which vary in size from 0.3 x 0.2 x 0.1 cm up to 0.4 x 0.3 x 0.2 cm. ??The specimen is submitted intact as (A). ? [facility] labelled Romeo Coe and #2 rectum bx are three biopsies which vary in size from 0.3 x 0.1 x 0.1 cm up to 0.4 x 0.3 x 0.3 cm. ??The specimen is submitted intact as (B). ??(DIANE Smith)/rajig ? End of Report ? [facility] 11/13/2008 11/14/2008 9:2 2 EDT us Irving Jha MD PATHOLOGY ORDERABLES Final Result [facility] [address] [place] [address] documented in this encounter Visit Diagnoses Not on filedocumented in this encounter
--- OUTSIDE RECORDS SUMMARY | 2024-08-05 17:25 | XMS_ITS | Encounter Summary ---
Author Organization [facility] [place] Address [address] [place] [address] Care Team Providers Care Market Research Interviewer Name Role Phone Sarita Lim MD Primary Care Provider Reason for Referral * Consult (Routine) - Closed Specialty Diagnoses / Procedures Referred By Contac t Referred To Contact Diagnoses CAD (coronary artery disease) S/P coronary artery stent placement NSTEMI (non-ST elevated myocardial infarction) ([facility]) Kemi Vo NP Heitzman, Mark, MD Phone: tel: fax: Referral ID Status Reason Start Date Expiration Date V isits Requested Visits Authorized [id number] Closed Specialty Services Required 02/15/2014 1 1 Question Answer Reason for Request: post NSTEMI post pci Scheduling Comments (optional ? describe specific scheduling needs if applicable): 1 month Expected Discharge Date (Inpatient Only): 02/16/2014 Comments Please schedule in [address] Leyva at [facility] Cardiology clinic * Consult (Routine) - Closed Specialty Diagnoses / Procedures Referred By Contac t Referred To Contact Cardiac Rehabilitation Diagnoses CAD (coronary artery disease) S/P coronary artery stent placement NSTEMI (non-ST elevated myocardial infarction) ([facility]) Kemi Vo NP Referral ID Status Reason Start Date Expiration Date V isits Requested Visits Authorized [id number] Closed Specialty Services Required 02/15/2014 1 1 Question Answer Reason for Request: post NSTEMI, CAD, post pci Scheduling Comments (optional ? describe specific scheduling needs if applicable): 1 week Expected Discharge Date (Inpatient Only): 02/16/2014 Comments Please refer to cardiac rehab at [facility] Encounter Details Date Type Department Care Team (Late st Contact Info) Description 02/15/2014 13:04 EDT - 02/16/2014 15:32 EDT Hospital Encounter [facility] Cardiac/Telemetry Unit [address] [place] [address] Mahi Mcginnis MD [address] [facility] Level [address] [place] [address] Chest pain (Primary Dx); CAD (coronary artery disease); Unstable angina [place] S/P coronary artery stent placement; NSTEMI (non-ST elevated myocardial infarction) ([facility] Discharge Disposition: Home or Self Care Social [...] 107.1 kg (236 lb 3.2 oz) 02/14/2014 2153 EDT Height 179.1 cm (5' 10.5) 02/14/2014 2153 EDT Body Mass Index 33.41 02/14/2014 2153 EDT documented in this encounter Functional Status * Are you deaf or do you have serious difficulty hearing? Answer Date of Assessment Author No 02/14/2014 22:17 EDT Trell Bauman RN * Are you blind or do you have serious difficulty seeing, even when wearing glasses? Answer Date of Assessment Author No 02/14/2014 22:17 EDTrell Monet RN * Do you have serious difficulty walking or climbing stairs? (5 years old or older) Answer Date of Assessment Author No 02/14/2014 22:17 EDTrell Monet RN * Do you have difficulty dressing or bathing? (5 years old or older) Answer Date of Assessment Author No 02/14/2014 22:17 EDTrell Monet RN * Because of a physical, mental, or emotional condition, do you have difficulty doing errands alone such as visiting a doctor's office or shopping? (15 years old or older) Answer Date of Assessment Author No 02/14/2014 22:17 Trell Renteria RN documented as of this encounter Mental Status * Because of a physical, mental, or emotional condition, do you have serious difficulty concentrating, remembering, or making decisions? (5 years old or older) Answer Entry Date Author Yes 02/14/2014 22:17 Trell Renteria RN documented in this encounter Discharge Summaries * Vilma Benson [...] hx of of CAD s/p PCI at [facility] in May 2012 and Jul [...] up was requested with Dr. Leyva at [facility] Cardiology. Clinical Issues Needing Follow-up: None [...] Rehabilitation Please refer to cardiac rehab at [facility] Reason for Request: post NSTEMI, CAD, [...] in [address] Leyva at [facility] Cardiology clinic Reason for Request: post [...] Vo NP Additional Information: Please see your Poultry Farm Manager Dr Adithya Leyva in [facility], on February at [address] Leyva's telephone number is [phone]. Follow-Up Labs and Tests: None Sophie Salinas MD 02/16/2014 13:57 ATTENDING Attestation statement: I saw and examined the patient with the resident. I agree with the findings and plan of care documented in the resident's note. Vilma Benson Jr., MD english language learner tutor [facility] Pager [phone] documented in this encounter Discharge Instructions * Appointments* Horine Mariah - 02/16/2014 13:41 EDT Please see your Poultry Farm Manager Dr Adithya Leyva in [facility], on February at [address] Leyva's telephone number is [phone]. documented in this encounter Medications at Time [...] Refills Last Filled Start Date End Date rosuvastatin (CRESTOR) 20 mg tablet Take 1 Tab by mouth daily. 30 Tab 3 02/16/2014 clopidogrel (PLAVIX) 75 mg tablet Take 1 Tab by mouth daily. 30 Tab 11 02/16/2014 04/09/2023 documented in this encounter Discharge Disposition Disposition Code Departure Means Destination Home or Self Care documented in this encounter Progress Notes * Rosario Russo RN - 02/16/2014 1459 EDT D: Patient discharged home per MD. [...] 1045 EDT 02/16: A volunteer drive from [employer] will slat pickler patient in main lobby at 3:30. His name is Sal. Patient aware. Katia Nichols RN [facility] #[id number] * Sophie Salinas MD - 02/15/2014 1600 EDT Cardiology Post Procedure Check: S: [facility] today. Patient denies chest pain, palpitations, shortness [...] Salinas MD MPH - PGY 2 Pager [phone] 02/15/2014 * Vilma Benson Jr., MD - [...] or concerns. Sincerely, Vilma Benson Jr. MD english language learner tutor [facility] Pager # [phone] * Katia Nichols RN - 02/15/2014 0846 EDT Initial Case Management/Social Work Assessment and [...] POA &/or COLST IN PLACE: No CULTURAL, SHINTO and/or LANGUAGE factors affecting health care/discharge planning:: [...] MODERATE RISK: N/A INITIAL TRANSITION PLAN: Plan LH today Transportation from hospital in place? Yes,family [...] with hx of CAD s/p PCI at [facility] in May 2012 and Jul [...] clinical course Sophie Salinas M.D. M.P.H PGY-2, #[id number] Cosigned by Elias Ge MD at 02/15/2014 12:59 EDT * Nathan Tyson MD - 02/14/2014 6432 EDT 48 with PMH of HTN, diabetes, dyslipidemia, smoker, coronary artery disease S/P stents in [facility] May of 2012 in Julyo13 was being [...] Notes * Elias Ge MD - 02/14/2014 2230 EDT Internal Medicine Admission H&P Admission Date: 02/14/2014 PCP: SARITA LIM MD CC: chest pain Subjective: HPI: Romeo Coelho is a 48 y.o. year old male with hx of known cad (s/p PCI with 3 stents at [facility]), htn, hld, dmii, who presents with [...] clinical course Farhan Alfaro MD Pager # [phone] 02/14/2014 22:33 I have seen and evaluated the patient. I agree with the assessment and plan as outlined above by Dr. Alfaro. Mr. Coelho has known CAD and is s/p PCI at [facility] on at least 2 occassions. He now presents with a clinical history c/w unstable angina. The plan if for [facility] today. The patient is aware and agrees. He also needs risk factor modification - smoking cessation. We emphasized the importance of this toMr. Coelho. ELIAS GE MD Attending Poultry Farm Manager documented in this encounter Procedure Notes * Vilma Benson Jr., MD - 02/15/2014 1204 EDT Images from the original note were not included. Cardiovascular Catheterization Laboratory Preliminary Report -- Catheterization Date of Service/Procedure: 02/15/2014 Attending Physician: Vilma Benson Jr., MD Web Site Admin: Kemi Vo NP Pre-Procedure Diagnosis/Indication: Romeo Coelho [...] artery Procedure: He was brought to the [facility] Cardiac Catheterization Laboratory for the [...] Care - Asad Bauman RN - 02/15/2014 2203 EDT Problem: CIRCULATORY STATUS Goal: Patient Has [...] Care - Gina Mix RN - 02/15/2014 0833 EDT Problem: Acute Ischemic Pain - Cardiac [...] Nitro gtt increased. Response: pt npo awaiting C today. Increase nitro gtt per BP and CP. Call perez in reach. Gina Mix RN 02/15/2014 8:35 * Plan of Care - Asad Bauman RN - 02/14/2014 4978 EDT Problem: HOSPITAL ORIENTATION/SAFETY Goal: Oriented To Hospital Environment Outcome: Completed Date Met: 02/14/14 D: Patient arrived to [place] [address]. Vital signs noted, and tele applied. Patient [...] Patient with 0/10 CP. Plan is for [facility] in AM. 0018: Patient states 4/10 [...] stent placement NSTEMI (non-ST elevated myocardial infarction) ([facility]) Ordered: 02/15/2014 AMB CONS/FOLLOW UP CARDIOLOGY Outpatient Referral Routine CAD (coronary artery disease) S/P coronary artery stent placement NSTEMI (non-ST elevated myocardial infarction) ([facility]) Ordered: 02/15/2014 documented as of this encounter [...] (09/05/2015 10:24 EST) 09/05/2015 10:2 4 EST us Scan 2 Cut Order Hand PROCEDURE/MINOR SURGICAL OR DERABLES Final Result * ECG REPORT - SCANNED (02/21/2014 15:36 EDT) 02/21/2014 15:3 6 EDT us Scan 2 Cut Order Hand PROCEDURE/MINOR SURGICAL OR DERABLES Final Result * INVASIVE CARDIOLOGY REPORT-SCANNED (02/21/2014 15:36 EDT) 02/21/2014 15:3 6 EDT us Scan 2 Cut Order Hand PROCEDURE/MINOR SURGICAL OR DERABLES Final Result * ECG REPORT - SCANNED (02/20/2014 10:15 EDT) 02/20/2014 10:1 5 EDT us Scan 2 Cut Order Hand PROCEDURE/MINOR SURGICAL OR DERABLES Final Result * ECG REPORT - SCANNED (02/20/2014 10:03 EDT) 02/20/2014 10:0 3 EDT us Scan 2 Cut Order Hand PROCEDURE/MINOR SURGICAL OR DERABLES Final Result * ECG REPORT - SCANNED (02/17/2014 15:12 EDT) 02/17/2014 15:1 2 EDT us Scan 2 Cut Order Hand PROCEDURE/MINOR SURGICAL OR DERABLES Final Result * ECG REPORT - SCANNED (02/17/2014 15:10 EDT) 02/17/2014 15:1 0 EDT us Scan 2 Cut Order Hand PROCEDURE/MINOR SURGICAL OR DERABLES Final Result * (ABNORMAL) GLUCOSE, GLUCOMETER (02/16/2014 12:01 EDT) Glucose, Fingerstick 133(H) 70 - 100 mg/dl [facility] [employer] ID [id number] [facility] Comment:Test Performed by [facility] [employer] 02/16/2014 12:0 1 EDT 02/16/2014 12:02 EDT us Mahi Mcginnis MD CHEMISTRY & BLOOD GAS ORDER CARTER Final Result [facility] [address] [place] [address] * ECHOCARDIOGRAM (02/16/2014 12:00 EDT) Anatomical Region Laterality Modality Other 02/16/2014 12:0 0 EDT Narrative 02/16/2014 12:53 EDT *Interpreting Group:* *[facility]* [address] [place] [address] *STUDY CONCLUSIONS* Summary: 1. Left ventricle: The [...] Mcginnis MD REFERRING ?Sarita Lim PERFORMING ?? [facility], ORDERING ? Sophie Salinas REFERRING ?Sophie Salinas DEVELOPMENT GEOLOGIST ??Latoya Murcia *PROCEDURE DATA* Procedure information: ??This study was interpreted by [facility] at [facility]. ??Study status: ??Routine. Transthoracic echocardiography. [...] 02/16/2014 12:53 Procedure Note 02/16/2014 *Interpreting Group:* *[facility]* [address] [place] [address] *STUDY CONCLUSIONS* Summary: 1. Left ventricle: The cavity size was normal. Wall thickness was normal. Systolic function was normal. The estimated ejection fraction [id number]%. Wall motion was normal; there were no [...] Mcginnis MD REFERRING Sarita Lim PERFORMING Fa, Kajal ORDERING Sophie Salinas REFERRING Sophie Salinas DEVELOPMENT GEOLOGIST Latoya Murcia *PROCEDURE DATA* Procedure information: This study was interpreted by [facility]. Study status: Routine.Transthoracic echocardiography. M-mode, [...] 02/16/2014 12:53 Sophie Salinas MD CARDIAC ECHO ORDERABLES Fin al Result * DIFFERENTIAL (02/16/2014 5:53 EDT) % Neutrophils 66.5 45.5 - 79.7 % [facility] % Lymphocytes 23.2 15.0 - 46.8 % [facility] % Monocytes 6.7 1.8 - 12.0 % [facility] % Eosinophils 2.7 0.6 - 6.9 % [facility] % Basophils 0.9 0.2 - 1.4 % [facility] ABS Neutrophils 6.29 2.20 - 8.85 K/cmm [facility] ABS Lymphs 2.19 1.09 - 3.30 K/cmm [facility] ABS Monocytes 0.63 0.1 - 0.8 K/cmm [facility] ABS Eosinophils 0.25 0.03 - 0.61 K/cmm [facility] ABS Basophils 0.09 0.01 - 0.11 K/cmm [facility] Type of Diff: Automated [facility] 02/16/2014 5:53 EDT 02/16/2014 5:59 EDT Farhan Alfaro MD HEMATOLOGY & PF4 ORDERABLES Fi nal Result [facility] [address] [place] [address] * (ABNORMAL) HEMAGRAM (02/16/2014 5:53 EDT) WBC 9.46 4.0 - 10.4 K/cmm [facility] RBC 5.30 4.36 - 5.78 M/cmm [facility] Hemoglobin 15.7 13.8 - 17.3 gm/dl [facility] HCT 45.9 39.5 - 50.2 % [facility] MCV 87 81 - 95 fl [facility] MCH 29.5 27.6 - 33.0 pg [facility] MCHC 34.1 32.8 - 36.4 gm/dl [facility] PLT 151 141 - 320 K/cmm [facility] RDW-CV 14.2(H) 11.8 - 14.1 % [facility] 02/16/2014 5:53 EDT 02/16/2014 5:59 EDT Farhan Alfaro MD HEMATOLOGY & PF4 ORDERABLES Fi nal Result Performing Organization Address [facility] [[email or web address]] Co de Phone Number [facility] [address] [place] [address] * PTT (02/16/2014 5:53 EDT) PTT 30 26 - 37 secs [facility] Comment:Therapeutic Heparin range: 65-100 seconds Blood specimen (specimen) 02/16/2014 5:53 EDT 02/16/2014 5:59 EDT us Mahi Mcginnis MD HEMATOLOGY & PF4 ORDERABLES Final Result Performing Organization Address [facility] de Phone Number [facility] [address] [place] [address] * CREATININE (02/16/2014 5:53 EDT) Creatinine 0.70 0.66 - 1.25 mg/dl [facility] GFR, Calculated >60 >60 ml/min/1.7 3m2 [facility] Blood specimen (specimen) 02/16/2014 5:53 EDT 02/16/2014 5:59 EDT Farhan Alfaro MD CHEMISTRY & BLOOD GAS ORDERABL ES Final Result Performing Organization Address City/[facility]/ZIP Co de Phone Number [facility] [address] [place] [address] * BUN (02/16/2014 5:53 EDT) BUN 11 10 - 26 mg/dl [facility] Blood specimen (specimen) 02/16/2014 5:53 EDT 02/16/2014 5:59 EDT us Farhan Alfaro MD CHEMISTRY & BLOOD GAS ORDERABL ES Final Result Performing Organization Address [facility] [[email or web address]] Co de Phone Number [facility] [address] [place] [address] * ELECTROLYTES (02/16/2014 5:53 EDT) Sodium 141 136 - 145 mEq/L [facility] Potassium 4.1 3.5 - 5.0 mEq/L [facility] Chloride 104 96 - 110 mEq/L [facility] CO2 25 24 - 32 mEq/L [facility] Blood specimen (specimen) 02/16/2014 5:53 EDT 02/16/2014 5:59 EDT us Farhan Alfaro MD CHEMISTRY & BLOOD GAS ORDERABL ES Final Result Performing Organization Address [facility] [[email or web address]] Co de Phone Number [facility] [address] [place] [address] * ALT (02/16/2014 5:53 EDT) ALT 22 21 - 72 U/L [facility] Blood specimen (specimen) 02/16/2014 5:53 EDT 02/16/2014 5:59 EDT us Kemi Vo NP CHEMISTRY & BLOOD GAS ORDERABLE S Final Result Performing Organization Address [facility] [[email or web address]] Co de Phone Number [facility] [address] [place] [address] * AST (02/16/2014 5:53 EDT) AST 15 15 - 46 U/L [facility] Blood specimen (specimen) 02/16/2014 5:53 EDT 02/16/2014 5:59 EDT Kemi Edwin ACCESS RN CHEMISTRY & BLOOD GAS ORDERABLE S Final Result Performing Organization Address [facility] de Phone Number [facility] [address] [place] [address] * LIPID PROFILE (INCLUDES CHOLESTEROL, TRIGLYCERIDES, HDL, LDL) (02/16/2014 5:53 EDT) Cholesterol 154 mg/dl [facility] Comment: Desirable:<200 Borderline High:200-239 High:>pm=935 Triglycerides 254 mg/dl [facility] Comment: Normal:<150 Borderline High:150-199 High:200-499 Very High:>oo=267 HDL 37 mg/dl [facility] Comment: Low:<40 Normal:40-60 Desirable: >60 LDL, Calculated 66 mg/dl [facility] Comment: Optimal:<100 Near Optimal:100-129 Borderline High:130-159 High:160-189 Very High:>gg=164 Chol/HDL Ratio 4.2 [facility] Fasting? YES [facility] Non HDL Cholesterol 117 mg/dl [facility] Comment: Desirable:<130 Borderline:130-159 High: 160-189 Very High: >gv=092 Blood specimen (specimen) 02/16/2014 5:53 EDT 02/16/2014 5:59 EDT Kemi Vo ACCESS RN CHEMISTRY & BLOOD GAS ORDERABLE S Final Result Performing Organization Address [facility] de Phone Number [facility] [address] [place] [address] * CK MB WITH TOTAL CK (02/16/2014 5:53 EDT) CK 47 0 - 250 U/L [facility] MB 0.54 <4.21 ng/ml [facility] Blood specimen (specimen) 02/16/2014 5:53 EDT 02/16/2014 5:59 EDT us Kemi Vo NP CHEMISTRY & BLOOD GAS ORDERABLE S Final Result Performing Organization Address [facility] Phone Number [facility] [address] [place] [address] * (ABNORMAL) GLUCOSE, GLUCOMETER (02/16/2014 5:51 EDT) Glucose, Fingerstick 105(H) 70 - 100 mg/dl [facility] [employer] ID [id number] [facility] Comment:Test Performed by [employer] 02/16/2014 5:51 EDT 02/16/2014 5:52 EDT us Mahi Mcginnis MD CHEMISTRY & BLOOD GAS ORDER CARTER Final Result Performing Organization Address [facility] Phone Number [facility] [address] [place] [address] * GLUCOSE, GLUCOMETER (02/15/2014 20:41 EDT) Glucose, Fingerstick 78 70 - 100 mg/dl [facility] [employer] [place] [id number] [facility] Comment:Test Performed by [employer] 02/15/2014 20:4 1 EDT 02/15/2014 20:45 EDT Mahi Mcginnis MD CHEMISTRY & BLOOD GAS ORDER CARTER Final Result Performing Organization Address [facility] Phone Number [facility] [address] [place] [address] * (ABNORMAL) GLUCOSE, GLUCOMETER (02/15/2014 16:44 EDT) Glucose, Fingerstick 154(H) 70 - 100 mg/dl [facility] [employer] ID [id number] [facility] Comment:Test Performed by [employer] 02/15/2014 16:4 4 EDT 02/15/2014 16:49 EDT us Mahi Mcginnis MD CHEMISTRY & BLOOD GAS ORDER CARTER Final Result [facility] [address] [place] [address] * EKG 12-LEAD (02/15/2014 14:19 EDT) 02/15/2014 14:1 9 EDT Narrative [facility] EKG - 02/17/2014 8:24 EDT ?[facility] ? Test Date: ?2014-02-15 Pat Name: ? ROMEO PATELONEY ?Department: ?? [facility] ? Room: ? ME507 Gender: ? M ?Loan Reviewer: ?? [id number] : ?1965 ? Requested By: KEMI VO ACCESS RN Order Number: [id number] ? Reading MD: ?? VILMA BENSON MD ? Measurements Intervals ?[place] ? Rate: ? 57 ? P: ?-3 VT: ? 156 ?QRS: ?22 QRSD: ? 103 ?T: ?44 QT: ? 401 ? QTc: ?392 ? Interpretive Statements SINUS BRADYCARDIA Compared to ECG 02/15/2014 08:43:51 Sinus bradycardia now present I reviewed the tracing and agreed or edited the report. Electronically Signed On 02-17-14 08:24:39 EDT by VILMA BENSON MD. Procedure Note Vilma Benson Jr., MD - 02/17/2014 [facility] Test Date: 2014-02-15 Pat Name: ROMEO COELHO Department: [place] [address] Room: [facility] Gender: M Loan Reviewer: [id number] : 1965 Requested By: KEMI VO ACCESS RN Order Number: [id number] Reading MD: VILMA BENSON MD Measurements Intervals [place] Rate: 57 P: -3 VT: 156 QRS: 22 QRSD: 103 T: 44 QT: 401 QTc: 392 Interpretive Statements SINUS BRADYCARDIA Compared to ECG 02/15/2014 08:43:51 Sinus bradycardia now present I reviewed the tracing and agreed or edited the report. ElectronicallySigned On 02-17-14 08:24:39 EDT by VILMA BENSON MD. us Kemi Vo ACCESS RN CARDIAC ECG ORDERABLES Final Re sult Performing Organization Address [facility] [[email or web address]] Co de Phone Number [facility] EKG * CK MB WITH TOTAL CK (02/15/2014 14:02 EDT) CK 51 0 - 250 U/L [facility] MB <0.22 <4.21 ng/ml [facility] Blood specimen (specimen) 02/15/2014 14:02 EDT 02/15/2014 14:30 EDT us Farhan Alfaro MD CHEMISTRY & BLOOD GAS ORDERABL ES Final Result Performing Organization Address [facility] de Phone Number [facility] [address] [place] [address] * (ABNORMAL) GLUCOSE, GLUCOMETER (02/15/2014 12:38 EDT) Glucose, Fingerstick 106(H) 70 - 100 mg/dl [facility] [employer] [place] [id number] [facility] Comment:Test Performed by [facility] Services 02/15/2014 12:3 8 EDT 02/15/2014 13:32 EDT us Mahi Mcginnis MD CHEMISTRY & BLOOD GAS ORDER CARTER Final Result Performing Organization Address [facility] de Phone Number [facility] [address] [place] [address] * LEFT HEART CATH (02/15/2014 10:55 EDT) Anatomical Region Laterality Modality Other 02/15/2014 10:5 5 EDT Narrative 02/15/2014 16:46 EDT Cardiology [address] [place] [address] Catheterization Laboratory Study Patient: Romeo Coelho ? Study Date: ?02/15/2014 ? Accession #: ? [id number] : ? 1965 Diagnostic Attending: ??Vilma Benson [...] ??Right radial artery access. A 6 FR/10 [employer] Sheath [place] SS .021 sheath was ?advanced into the [...] MD 2014-02-15 16:46 Procedure Note 02/15/[address] [place] [id number] Catheterization Laboratory Study Patient: Romeo Coelho Study [...] patient's anginal symptoms and an ACC/AHA type [id number] risk lesion for intervention, with 2 or [...] artery access. A 6 FR/10 [employer] Sheath [place] SS .021sheath was advanced into the vessel. [...] catheter was exchanged for a 6fr Runway [id number]. 9. Pressure derived flow reserve measurement for [...] with two inflations and a maximum pressure [id number]. STUDY COMPLETION: The estimated blood loss was [...] of 12mcg/min. Fentanyl, for a total dose [id number]. Midazolam, for a total dose of 2mg. Nitroglycerin, for a total dose [id number], into the coronary artery. Contrast: Isovue 370 [...] 2014-02-15 16:46 Farhan Alfaro MD CARDIAC CATH ORDERABLES Final Result * (ABNORMAL) PTT (02/15/2014 8:53 EDT) PTT 96(H) 26 - 37 secs [facility] Comment:Therapeutic Heparin range: 65-100 seconds Blood specimen (specimen) 02/15/2014 8:53 EDT 02/15/2014 9:15 EDT Mahi Mcginnis MD HEMATOLOGY & PF4 ORDERABLES Final Result [facility] [address] [place] [address] * EKG 12-LEAD (02/15/2014 8:43 EDT) 02/15/2014 8:43 EDT Narrative [facility] EKG - 02/15/2014 22:25 EDT ?[facility] ? Test Date: ?2014-02-15 Pat Name: ? ROMEO COELHO ?Department: ?? [facility] ? Room: ? ME507 Gender: ? M ?Loan Reviewer: ?? [id number] : ?1965 ? Requested By: SOPHIE SALINAS MD Order Number: [id number] ? Reading MD: ?? KATHIE BARON MD ? Measurements Intervals ?[place] ? Rate: ? 61 ? P: ?-1 VT: ? 149 ?QRS: ?20 QRSD: ? 98 [...] Date: 2014-02-15 Pat Name: ROMEO COELHO Department: [place] [address] Room: [facility] Gender: M Loan Reviewer: [id number] : 1965 Requested By: SOPHIE PEREIRA Order Number: [id number] Tiarra MD: KATHIE BARON MD Measurements Intervals [place] Rate: 61 P: -1 VT: 149 QRS: 20 QRSD: 98 T: 37 QT: 386 QTc: 392 Interpretive Statements SINUS RHYTHM NORMAL ECG Compared to ECG 02/15/2014 00:29:30 No significant changes I reviewed the tracing and agreed or edited the report. ElectronicallySigned On 02-15-14 22:25:53 EDT by KATHIE BARON MD. us Sophie Salinas MD CARDIAC ECG ORDERABLES [place] Result [facility] EKG * (ABNORMAL) GLUCOSE, GLUCOMETER (02/15/2014 6:40 EDT) [facility] Glucose, Fingerstick 146(H) 70 - 100 mg/dl [facility] [employer] [place] ID [id number] [facility] Comment:Test Performed by [facility] 02/15/2014 6:40 EDT 02/15/2014 6:41 EDT us Mahi Mcginnis MD CHEMISTRY & BLOOD GAS ORDER CARTER Final Result Performing Organization Address City/[facility] [[email or web address]] Co de Phone Number [facility] [address] [place] [address] * (ABNORMAL) DIFFERENTIAL (02/15/2014 5:34 EDT) % Neutrophils 56.9 45.5 - 79.7 % [facility] % Lymphocytes 32.7 15.0 - 46.8 % [facility] % Monocytes 6.3 1.8 - 12.0 % [facility] % Eosinophils 3.0 0.6 - 6.9 % [facility] % Basophils 1.1 0.2 - 1.4 % [facility] ABS Neutrophils 6.01 2.20 - 8.85 K/cmm [facility] ABS Lymphs 3.45(H) 1.09 - 3.30 K/cmm [facility] ABS Monocytes 0.66 0.1 - 0.8 K/cmm [facility] ABS Eosinophils 0.31 0.03 - 0.61 K/cmm [facility] ABS Basophils 0.11 0.01 - 0.11 K/cmm [facility] Type of Diff: Automated FLETCH DELMIS [facility] 02/15/2014 5:34 EDT 02/15/2014 5:53 EDT us Farhan Alfaro MD HEMATOLOGY & PF4 ORDERABLES Fi nal Result Performing Organization Address City/[facility]/ZIP Co de Phone Number [facility] [address] [place] [address] * (ABNORMAL) HEMAGRAM (02/15/2014 5:34 EDT) WBC 10.55(H) 4.0 - 10.4 K/cmm [facility] RBC 5.08 4.36 - 5.78 M/cmm [facility] Hemoglobin 15.1 13.8 - 17.3 gm/dl [facility] HCT 44.5 39.5 - 50.2 % [facility] MCV 88 81 - 95 fl [facility] MCH 29.8 27.6 - 33.0 pg [facility] MCHC 34.0 32.8 - 36.4 gm/dl [facility] PLT 150 141 - 320 K/cmm [facility] RDW-CV 14.5(H) 11.8 - 14.1 % [facility] 02/15/2014 5:34 EDT 02/15/2014 5:53 EDT Farhan Alfaro MD HEMATOLOGY & PF4 ORDERABLES Fi nal Result Performing Organization Address [facility] de Phone Number [facility] [address] [place] [address] * CREATININE (02/15/2014 5:34 EDT) Creatinine 0.80 0.66 - 1.25 mg/dl [facility] GFR, Calculated >60 >60 ml/min/1.7 3m2 [facility] Blood specimen (specimen) 02/15/2014 5:34 EDT 02/15/2014 5:53 EDT Farhan Alfaro MD CHEMISTRY & BLOOD GAS ORDERABL ES Final Result Performing Organization Address [facility] de Phone Number [facility] [address] [place] [address] * BUN (02/15/2014 5:34 EDT) BUN 10 10 - 26 mg/dl [facility] Blood specimen (specimen) 02/15/2014 5:34 EDT 02/15/2014 5:53 EDT Farhan Alfaro MD CHEMISTRY & BLOOD GAS ORDERABL ES Final Result Performing Organization Address [facility] de Phone Number [place] [facility] [address] [place] [address] * ELECTROLYTES (02/15/2014 5:34 EDT) Sodium 143 136 - 145 mEq/L [facility] Potassium 4.1 3.5 - 5.0 mEq/L [facility] Chloride 107 96 - 110 mEq/L [facility] CO2 25 24 - 32 mEq/L [facility] Blood specimen (specimen) 02/15/2014 5:34 EDT 02/15/2014 5:53 EDT Farhan Alfaro MD CHEMISTRY & BLOOD GAS ORDERABL ES Final Result Performing Organization Address [facility] de Phone Number [facility] [address] [place] [address] * LIPID PROFILE (INCLUDES CHOLESTEROL, TRIGLYCERIDES, HDL, LDL) (02/15/2014 5:34 EDT) Cholesterol 143 mg/dl [facility] Comment: Desirable:<200 Borderline High:200-239 High:>nd=122 Triglycerides 266 mg/dl [facility] Comment: Normal:<150 Borderline High:150-199 High:200-499 Very High:>me=899 HDL 39 mg/dl [facility] Comment: Low:<40 Normal:40-60 Desirable: >60 LDL, Calculated 51 mg/dl [facility] Comment: Optimal:<100 Near Optimal:100-129 Borderline High:130-159 High:160-189 Very High:>gp=279 Chol/HDL Ratio 3.7 [facility] Fasting? Unknown [facility] Non HDL Cholesterol 104 mg/dl [facility] Comment: Desirable:<130 Borderline:130-159 High: 160-189 Very High: >tz=825 Blood specimen (specimen) 02/15/2014 5:34 EDT 02/15/2014 5:53 EDT Farhan Alfaro MD CHEMISTRY & BLOOD GAS ORDERABL ES Final Result Performing Organization Address [facility] de Phone Number [facility] [address] [place] [address] * TROPONIN I (02/15/2014 5:34 EDT) [facility] Troponin I (ng/mL) <0.034 <0.034 ng/ml [facility] Blood specimen (specimen) 02/15/2014 5:34 EDT 02/15/2014 5:53 EDT Farhan Alfaro MD CHEMISTRY & BLOOD GAS ORDERABL ES Final Result Performing Organization Address [facility] de Phone Number [facility] [address] [place] [address] * CK MB WITH TOTAL CK (02/15/2014 5:34 EDT) [facility] CK 55 0 - 250 U/L [facility] MB 0.25 <4.21 ng/ml [facility] Blood specimen (specimen) 02/15/2014 5:34 EDT 02/15/2014 5:53 EDT Farhan Alfaro MD CHEMISTRY & BLOOD GAS ORDERABL ES Final Result Performing Organization Address [facility] [place] [address] * (ABNORMAL) PTT (02/15/2014 1:57 EDT) [facility] PTT 48(H) 26 - 37 secs [facility] Comment:Therapeutic Heparin range: 65-100 seconds Blood specimen (specimen) 02/15/2014 1:57 EDT 02/15/2014 2:20 EDT Mahi Mcginnis MD HEMATOLOGY & PF4 ORDERABLES Final Result Performing Organization Address [facility] de Phone Number [facility] [address] [place] [address] * EKG 12-LEAD (02/15/2014 0:29 EDT) 02/15/2014 0:29 EDT Narrative [facility] EKG - 02/17/2014 11:31 EDT ?[facility] ? Test Date: ?2014-02-15 Pat Name: ? ROMEO COELHO ?Department: ?? Roy 5 ? Room: ? ME507 Gender: ? M ?Loan Reviewer: ?? [id number] : ?1965 ? Requested By: MAHI ELENA MD Order Number: [id number] ? Reading MD: ?? ODESSA SANTOS MD ? Measurements Intervals ?[place] ? Rate: ? 61 ? P: ?1 VT: ? 140 ?QRS: ?44 QRSD: ? 101 [...] Date: 2014-02-15 Pat Name: ROMEO COELHO Department: [place] [address] Room: [facility] Gender: M Loan Reviewer: [id number] : 1965 Requested By: MAHI ELENA MD Order Number: [id number] Reading MD: ODESSA SANTOS MD Measurements Intervals [place] Rate: 61 P: 1 VT: 140 QRS: 44 QRSD: 101 T: 46 QT: 391 QTc: 395 Interpretive Statements SINUS RHYTHM Automated Interpretation. Physician Interpretation to follow. Compared to ECG 02/14/2014 22:28:03 No significant changes I reviewed the tracing and agreed or edited the report. ElectronicallySigned On 02-17-14 11:31:38 EDT by ODESSA SANTOS MD. us Mahi Mcginnis MD CARDIAC ECG ORDERABLES [place] Result [facility] EKG * (ABNORMAL) DIFFERENTIAL (02/14/2014 22:43 EDT) [facility] % Neutrophils 36.5(L) 45.5 - 79.7 % [facility] % Lymphocytes 52.4(H) 15.0 - 46.8 % [facility] % Monocytes 7.1 1.8 - 12.0 % [facility] % Eosinophils 3.1 0.6 - 6.9 % [facility] % Basophils 0.9 0.2 - 1.4 % [facility] ABS Neutrophils 3.15 2.20 - 8.85 K/cmm [facility] ABS Lymphs 4.52(H) 1.09 - 3.30 K/cmm [facility] ABS Monocytes 0.62 0.1 - 0.8 K/cmm [facility] ABS Eosinophils 0.27 0.03 - 0.61 K/cmm [facility] ABS Basophils 0.07 0.01 - 0.11 K/cmm [facility] Type of Diff: Automated [facility] 02/14/2014 22:4 3 EDT 02/14/2014 22:50 EDT us Farhan Alfaro MD HEMATOLOGY & PF4 ORDERABLES Fi nal Result [facility] [address] [place] [address] * (ABNORMAL) HEMAGRAM (02/14/2014 22:43 EDT) WBC 8.63 4.0 - 10.4 K/cmm [facility] RBC 5.08 4.36 - 5.78 M/cmm [facility] Hemoglobin 15.0 13.8 - 17.3 gm/dl [facility] HCT 43.9 39.5 - 50.2 % [facility] MCV 86 81 - 95 fl [facility] MCH 29.5 27.6 - 33.0 pg [facility] MCHC 34.2 32.8 - 36.4 gm/dl [facility] PLT 170 141 - 320 K/cmm [facility] RDW-CV 14.5(H) 11.8 - 14.1 % [facility] 02/14/2014 22:4 3 EDT 02/14/2014 22:50 EDT Farhan Alfaro MD HEMATOLOGY & PF4 ORDERABLES Fi nal Result Performing Organization Address [facility] de Phone Number [facility] [address] [place] [address] * TROPONIN I (02/14/2014 22:43 EDT) Troponin I (ng/mL) <0.034 <0.034 ng/ml [facility] Blood specimen (specimen) 02/14/2014 22:43 EDT 02/14/2014 22:50 EDT Farhan Alfaro MD CHEMISTRY & BLOOD GAS ORDERABL ES Final Result Performing Organization Address [facility] de Phone Number [facility] [address] [place] [address] * CK MB WITH TOTAL CK (02/14/2014 22:43 EDT) CK 51 0 - 250 U/L [facility] MB <0.22 <4.21 ng/ml [facility] Blood specimen (specimen) 02/14/2014 22:43 EDT 02/14/2014 22:50 EDT us Farhan Alfaro MD CHEMISTRY & BLOOD GAS ORDERABL ES Final Result Performing Organization Address [facility] de Phone Number [facility] [address] [place] [address] * HEMOGLOBIN A1C (02/14/2014 22:43 EDT) Hemoglobin A1C 6.8 % [facility] Comment: Reference Range: <5.7% Normal 5.7-6.4% Increased [...] (specimen) 02/14/2014 22:43 EDT 02/14/2014 22:50 EDT us Farhan Alfaro MD CHEMISTRY & BLOOD GAS ORDERABL ES Final Result Performing Organization Address [facility] de Phone Number [facility] [address] [place] [address] * SCREENING GLUCOSE (02/14/2014 22:43 EDT) Glucose, Screening 94 70 - 100 mg/dl [facility] Blood specimen (specimen) 02/14/2014 22:43 EDT 02/14/2014 22:50 EDT us Farhan Alfaro MD CHEMISTRY & BLOOD GAS ORDERABL ES Final Result Performing Organization Address [facility] de Phone Number [facility] [address] [place] [address] * EKG 12-LEAD (02/14/2014 22:28 EDT) 02/14/2014 22:2 8 EDT Narrative [facility] E[facility] - 02/15/2014 12:55 EDT ?[facility] ? Test Date: ?2014-02-14 Pat Name: ? ROMEO COELHO ?Department: ?? Roy 5 ? Room: ? ME507 Gender: ? M ?Loan Reviewer: ?? [id number] : ?1965 ? Requested By: FARHAN ALFARO MD Order Number: [id number] ? Reading MD: ?? ROMEO ART MD ? Measurements Intervals ?[place] ? Rate: ? 60 ? P: ?-7 VT: ? 149 ?QRS: ?31 QRSD: ? 100 [...] Date: 2014-02-14 Pat Name: ROMEO COELHO Department: [place] [address] Room: [facility] Gender: M Loan Reviewer: [id number] : 1965 Requested By: FARHAN ALFARO MD Order Number: [id number] Reading MD: ROMEO ART MD Measurements Intervals [place] Rate: 60 P: -7 VT: 149 QRS: 31 QRSD: 100 T: 35 QT: 394 QTc: 395 Interpretive Statements SINUS RHYTHM No previous ECG available for comparison I have reviewed the tracing and have either agreed or edited the findingsin this report. I reviewed the tracing and agreed or edited the report. ElectronicallySigned On 02-15-14 12:55:22 EDT by ROMEO ART MD. us Farhan Alfaro MD CARDIAC ECG ORDERABLES Final R esult Performing Organization Address City/[facility] [[email or web address]] Co de Phone Number [facility] * GLUCOSE, GLUCOMETER (02/14/2014 22:26 EDT) [facility] Signature Glucose, Fingerstick 87 70 - 100 mg/dl [facility] [employer] [place] [id number] [facility] Comment:Test Performed by [facility] 02/14/2014 22:2 6 EDT 02/14/2014 22:44 EDT us Mahi Mcginnis MD CHEMISTRY & BLOOD GAS ORDER CARTER Final Result Performing Organization Address City/[facility] [[email or web address]] Co de Phone Number [facility] [address] [place] [address] documented in this encounter Visit Diagnoses Diagnosis Chest pain- Primary Chest pain, unspecified Chest pain Chest pain, unspecified CAD (coronary artery disease) Coronary atherosclerosis of unspecified type of vessel, [place] or graft Unstable angina (HCC-CMS) Intermediate coronary syndrome S/P coronary artery stent placement Postsurgical percutaneous transluminal coronary angioplasty status NSTEMI (non-ST elevated myocardial infarction) (HCC-CMS) Acute myocardial infarction, subendocardial infarction, episode of care unspecified Unstable angina (HCC-CMS) Intermediate coronary syndrome CAD (coronary artery disease) Coronary atherosclerosis of unspecified type of vessel, [place] or graft documented in this encounter Administered [...] may reflect changes made after this encounter. pantoprazole (PROTONIX) 40 mg tablet Take 1 [...] LEVALBUTEROL HCL INHALATION Inhale as directed. 04/09/2023 isosorbide mononitrate (IMDUR) 120 mg CR [...] Until Discontinued, Routine 0825 (Given - Provider: Gian Mix RN) 0941 (Given - Provider: Rosario [...] RN) 0941 (Given - Provider: Rosario Russo, RN) DILTiazem (TIAZAC) ER capsule 240 mg [...] RN)2037 (Given - Provider: Asad Bauman RN) 0944 (Given - Provider: Rosario Russo RN) gabapentin (NEURONTIN) capsule 300 mg (CANCELED) 300 mg, oral, 2 TIMES DAILY BEFORE BREAKFAST & LUNCH, First dose on Thu02/15/14 at 0700, Until Discontinued, Routine 0613 (Hold - Provider: Asad Bauman RN - Reason: Patient/family refused - Comment: wants to wait until after [facility])1315 (Given - Provider: Gina Mix RN - Comment: off unit) 0605 (Given - Provider: Asad Bauman RN)1204 (Given - Provider: Rosario Russo RN - Comment: off unit) gabapentin (NEURONTIN) capsule 600 mg (CANCELED) 600 mg, oral, AT BEDTIME, First dose on Thu02/14/14 at 2245, Until Discontinued, Routine 0142 (Given - Provider: Asad Bauman RN - Comment: nausea)2038 (Given - Provider: Asad Bauman, VERO) insulin aspart (NOVOLOG FLEXPEN) injection (CANCELED) subcutaneous, 3 TIMES DAILY WITH MEALS, First dose on Thu02/15/14 at 0800, Until Discontinued, Routine 0830 (Hold - Provider: Gina Mix RN - Reason: NPO)1314 (Not Given - Provider: Gina Mix RN - Reason: Order parameters not met)1744 (Given - Provider: Alfredo Marc, RN) 0800 (Not Given - Provider: Rosario [...] Gina Mix RN)2039 (Given - Provider: Asad Bauman RN) 0943 (Given - Provider: Rosario Russo RN) rosuvastatin (CRESTOR) tablet 20 mg (CANCELED) [...] Gina Mix RN)1701 (Given - Provider: Alfredo Marc, RN)2325 (Given - Provider: Asad Bauman RN) 0850 (Given - Provider: Rosario Russo RN)1530 (Canceled Entry - Provider: Rosario Russo RN) Continuous Medication Order 02/14/2014 02/15/2014 02/16/2014 heparin in 1/2 NS 25,000 unit/250 mL infusion (CANCELED) 17 Units/kg/hr ? 87.4 kg Adjusted weight (rounded to 14.9 mL/hr), intravenous, CONTINUOUS, Starting on Thu02/14/14 at 2245, Until Thu02/16/14 at 1734, Routine 2330 (New Bag - Provider: Asad Bauman, VERO) 0248 (New Bag - Provider: Asad Bauman RN)0831 (Rate Documented - Provider: Gina Mix RN)1317 (Hold - Provider: Gina Mix RN - Reason: Other - Comment: s/p lh) nitroglycerin 400 mcg/ml in D5W 250 ml infusion (CANCELED) 5 mcg/min (rounded to 0.8 mL/hr), intravenous, CONTINUOUS, Starting on Thu02/15/14 at 0115, Until Thu02/16/14 at 1734, Routine 0058 (New Bag - Provider: Asad Bauman RN)0831 (New Bag - Provider: Gina Mix RN)0833 (Rate Change - Provider: Gina Mix RN)1317 (Hold - Provider: Gina Mix RN - Reason: Other - Comment: s/p [facility]) PRN Medication Order 02/14/2014 02/15/2014 02/16/2014 cyclobenzaprine (FLEXERIL) tablet 10 mg (CANCELED) 10 mg, oral, 2 TIMES DAILY PRN, Starting on Thu02/14/14 at 2225, Until Martha 02/16/14 at 1734, Muscle Spasms, Routine 0943 (Given - Provid er: Rosario Russo RN) heparin 1,000 unit/mL injection 3,100 Units (CANCELED)(Linked Group 1) 3,100 Units (35 Units/kg ? 87.4 kg Adjusted weight), intravenous, PRN, Starting on Thu02/14/14 at 2223, Until Martha 02/16/14 at 1734, Other, Routine 0248 (Given - Provider: Asad Bauman, VERO) morphine injection 2-4 mg (CANCELED) 2-4 mg, intravenous, EVERY 5 MIN PRN, Starting on Thu02/14/14 at 2159, Until Thu02/16/14 at 1734, Pain, Routine 0106 (Given - Provider: Asad Bauman, VERO)0853 (Given - Provider: Gina Mix, VERO) nitroGLYCERIN (NITROSTAT) SL tablet 0.4 mg (CANCELED) 0.4 mg, sublingual, EVERY 5 MIN PRN, Starting on Thu02/14/14 at 2223, Until Thu02/16/14 at 1734, Chest Pain, Routine 0030 (Given - Provider: Asad Bauman, VERO)0037 (Given - Provider: Asad Bauman, RN)0042 (Given - Provider: Asad Bauman, VERO) Linked Groups Order Group 1: heparin 1,000 unit/mL injection 6,100 Units (CANCELED) 6,100 Units (70 Units/kg ? 87.4 kg Adjusted weight), intravenous, PRN, Starting on Thu02/14/14 at 2223, Until Thu02/16/14 at 1734, Other, Routine Or heparin 1,000 unit/mL injection 3,100 Units (CANCELED)Jump to med 3,100 Units (35 Units/kg ? 87.4 kg Adjusted weight), intravenous, PRN, Starting on Thu02/14/14 at 2223, Until Thu02/16/14 at 1734, Other, Routine documented in this encounter Orders Medications Ordered That Nuno ht Not Have Been Administered Count Last Ordered Date First Ordered Date acetaminophen (TYLENOL) tablet 650 mg 1 isosorbide mononitrate (IMDU R) CR tablet 120 mg 1 02/15/2014 lidocaine-EPINEPHrine 2 %-1: 100,000 injection 5-10 mL 1 02/15/2014 rosuvastatin (CRESTOR) tablet 10 mg 1 02/15 buPROPion (WELLBUTRIN) tablet 150 mg 01/23 dextrose 50 % solution 12.5 g [...] Date ACTIVITY INSTRUCTIONS 3 02/15/2014 BATHING INSTRUCTIONS 1 02/15/2014 PATIENT AT LOW RISK FOR VTE: [...] 02/14/2014 documented in this encounter Care Teams Market Research Interviewer Relationship Specialty Start Date End Date Sarita Lim MD [address] [place] [id number] PCP - General 12/17/11 documented as of this encounter
--- OUTSIDE RECORDS SUMMARY | 2024-08-05 17:25 | XMS_ITS | Encounter Summary ---
Author Organization [facility] Address [address] [place] [address] Care Team Providers Care Personal Banking Representative Name Role Phone Unavailable Primary Care Provider Unavailabl e Encounter Details Date Type Department Care Team (Late st Contact Info) Description 12/15/2011 Results Only [facility] [phone] Randell Kate, [address] [place], [place] [phone] Social History Tobacco Use Types Packs/Day Years [...] ? ROMEO COE ? Accession #: ? [id number] : ? 1965 (Age: 46) ??M ?Collect [...] enhancement technique. ? End of Report [facility] 12/15/2011 12/16/2011 7:5 2 EDT us Randell Kate DO PATHOLOGY ORDERABLES Fi nal Result [facility] [address] [place] [address] documented in this encounter Visit Diagnoses Not on filedocumented in this encounter
[2024-08-05 18:17] LABS: Troponin I 4 ng/L (<or=76)
[2024-08-05 19:23] LABS: Troponin I 4 ng/L (<or=76)
[2024-08-05 19:46] LABS: Bilirubin Negative (Negative); Blood Negative (Negative); Clarity Clear (Clear); Glucose 500 mg/dL (Negative); Ketones Negative (Negative); Leukocyte Esterase Negative (Negative); Nitrite Negative (Negative); Specific Gravity 1.025 (1.005-1.025); Urobilinogen 0.2 mg/dL (Up to 0.2); pH 5.5 (5-8)
--- NOTE | 2024-08-05 20:22 | ED.GENADUL_ITS ---
Discharge Plan Disposition Patient Disposition: Home Condition: Stable Discharge Details Clinical Impression: Episode of unresponsiveness, Hyperlipidemia, CAD (coronary artery disease), History of TIA (transient ischemic attack), Diabetes mellitus, type II, Hyperglycemia, Hypertension Primary Care Provider: Coni Lim V ED Provider: Edel Ye Home Meds and New Rx's Prescriptions: No Action ranolazine 500 mg tablet extended release 12 hr 500 mg PO BID Qty: 60 3RF losartan 25 mg Tablet 12.5 mg PO DAILY duloxetine [Cymbalta] 60 mg Capsule,Delayed Release(Dr/Ec) 60 mg PO BID hydroxyzine pamoate 50 mg capsule 25 mg PO Q4H PRN Qty: 90 Patient Comments: 08/01/15 not recently Rx Instructions: prn headache aspirin [Adult Aspirin Regimen] 81 mg tablet,delayed release (DR/EC) 81 mg PO DAILY sucralfate [Carafate] 1 gram tablet 1 gm PO QACHS colchicine 0.6 mg tablet 0.6 mg PO BID PRN (Reason: gout flare) Patient Comments: 08/01/15 not using docusate sodium [Colace] 100 mg capsule 100 mg PO BID PRN polyethylene glycol 3350 [Miralax] 17 gram/dose powder 17 gm PO DAILY PRN glucagon 3 mg/actuation spray,non-aerosol 3 mg intranasal ONCE Rx Instructions: as a single dose budesonide-formoterol 80-4.5 mcg/actuation HFA aerosol inhaler 1 inh inhalation BID nitroglycerin [Nitrostat] 0.4 MG tablet, sublingual 0.4 mg Sublingual PRN PRN cyclobenzaprine 10 MG tablet 10 mg PO HS PRN bupropion HCl 150 MG tablet extended release 12 hr 150 mg PO QPM pantoprazole 40 MG tablet,delayed release (DR/EC) 40 mg PO BID metformin 1,000 mg tablet extended release 24hr 1,000 mg PO BID Qty: 60 0RF acetaminophen 500 mg Tablet 1,000 mg PO Q8H Qty: 30 0RF albuterol sulfate [Ventolin HFA] 90 mcg/actuation Hfa Aerosol Inhaler 2 puff inhalation Q4H PRN PRN (Reason: Wheezing) Qty: 6.7 0RF gemfibrozil 600 mg Tablet 600 mg PO BID Qty: 20 0RF Rx Instructions: Please, discuss with PCP during f/u lactulose 20 gram/30 mL Solution 20 g PO BID Qty: 1200 0RF metoprolol succinate 100 mg Tablet Extended Release 24 Hr 200 mg PO DAILY Qty: 10 0RF pramipexole 0.5 mg Tablet 1 mg PO HS Qty: 20 0RF pramipexole 0.5 mg Tablet 0.5 mg PO DAILY Qty: 10 0RF rosuvastatin 10 mg Tablet 20 mg PO HS Qty: 10 0RF topiramate 25 mg tablet See Rx Instructions PO BID Qty: 30 0RF Rx Instructions: 25mg AM and 50mg PM orally twice a day; 25 mg in AM, 50 mg PM. triamcinolone acetonide 0.1 % cream 1 applic TOPICAL BID bupropion HCl 300 mg tablet extended release 24 hr 300 mg PO QAM isosorbide mononitrate 30 mg tablet extended release 24 hr 60 mg PO DAILY Patient Comments: TAKE ONE TABLET BY MOUTH EVERY MORNING gabapentin 800 mg tablet 800 mg PO BID insulin glargine [Lantus Solostar U-100 Insulin] 100 unit/mL (3 mL) Insulin Pen 26 unit subcut HS ondansetron 4 mg tablet,disintegrating 4 mg PO Q8H PRN (Reason: nausea and vomiting) Qty: 30 0RF Discharge Instructions Instructions: Fainting, Adult ED Additional Instructions: You were seen in the emergency department today for evaluation of an episode of unconsciousness. While in our department you have a full physical examination performed, had an EKG that showed no sign of heart attack, had a CT scan of your brain that did not show any abnormalities, and reassuring laboratory studies. Your improvement in your symptoms and at this time it is safe for you to go home and follow-up with your primary care provider to discuss next steps in workup and management. You should also let your neurologist know that this occurred, as they may be interested to know about this episode. Certainly if you have a recurrence of these episodes, such as loss of consciousness, fainting, seizure, weakness or numbness of 1 part of the body, or any other symptoms that cause you concern you should return for evaluation at the emergency department. Thank you for allowing us to be part of your care. HPI General Mode of arrival: EMS . Date/Time Provider Initiated Documentation: 08/05/24 16:06 . Limitations to Documentation: no limitations . Information obtained by: patient, EMS and old records reviewed . HPI Narrative: HPI: This is a 59-year-old male patient with a past medical history significant for CAD, TIA, high diabetes, hypertension, hyperlipidemia, who is presenting for evaluation after an episode of unresponsiveness. The patient was brought in by EMS after his brother noted him to be unconscious in a chair, after having been alone for approximately 5 minutes. EMS noted him to be awake and alert during their transport, though during transport the patient did have an episode of decreased responsiveness that lasted approximately 8 minutes. During this time he was arousable to loud verbal stimuli, but would fall back asleep. No tonic- clonic or seizure-like activity was appreciated, no trauma or injury. On arrival to our facility the patient is awake and alert. He states that he has been out of his insulin for a few days, has a prescription ready at the pharmacy but had not yet been able to pick it up. He states that he has otherwise been in his normal state of health, has been eating and drinking, no changes in bowel or bladder habits. He is endorsing body wide pain, was sweaty for EMS and states that his chest is uncomfortable. He states that this pain has been present for some time. Exam: Gen: awake and alert, in no apparent distress. Appears well nourished. HEENT: PERRL, EOMs full and without nystagmus. External ears and nose normal, mucous membranes moist. Neck: Supple, full range of motion, no observable masses Lungs: No increased work of breathing, lung sounds clear and equal bilaterally without wheezes, rhonchi, or rales. CV: Heart with regular rate and rhythm, no murmurs auscultated. Strong and symmetrical radial pulses. Abdomen: Soft, nondistended, non-tended to palpation. No rigidity, rebound tenderness, or guarding. MSK: No joint swelling, no redness. Full ROM without limitation, no external traumatic findings. Skin: No rashes or lesions to visualized skin. Normal color, warm, and dry. Neuro: Cranial nerves II-XII intact though I do appreciate a very small amount of right sided facial droop. 5/5 strength in all muscle groups x4 extremities. Small amount of pronator drift on the right side. No sensory deficits. Psych: Appropriate for situation. MDM: This is a 59-year-old male patient presenting for evaluation after an episode of unresponsiveness. Differential is quite broad, includes but is not limited to CVA (at the time of my initial evaluation and ordering I had not had the opportunity to review his old charts, it is apparent on review of prior discharge summaries that he does have a history of mild right sided weakness as a result of a prior TIA/CVA), I considered atypical seizures, considered intracranial hemorrhage. Considered hepatic encephalopathy and hyperammonemia given a history of same, though the patient is no longer taking lactulose at baseline. Considered DKA, HHS, and hyperglycemia. Considered metabolic electrolyte derangement, kidney injury, dehydration, liver disease. I considered ACS including STEMI, NSTEMI, unstable angina, as well as infectious abnormalities such as pneumonia, urinary tract infection. I certainly considered syncope, orthostasis, vasovagal syndrome, arrhythmia. At this time, I am reassured by the patient's hemodynamic stability, he is awake and alert and able to answer my questions. We will obtain a broad workup to include EKG, CTA of the head and neck, and laboratory studies to include CBC, CMP, magnesium, troponin, CK, urinalysis, and VBG. ED Course: I reviewed the patient's laboratory studies, which show no leukocytosis, anemia, or thrombocytopenia. The chemistry panel demonstrates no significant electrolyte derangements other than an elevated glucose of 2 2 at 32, and specifically does not have an anion gap or low bicarb. VBG is without acidosis to suggest diabetic ketoacidosis. Kidney function is at the patient's baseline and there is no evidence of liver dysfunction. Ammonia is low, as is the CK. Troponin was negative. Urinalysis is negative for infection but does show glucosuria without ketonuria. The chest x-ray shows no abnormalities to account for the patient's symptoms, and his CTA head and neck shows no evidence of large vessel occlusion, infarct, intracranial hemorrhage. EKG was reviewed, showing no evidence of ischemia, interval abnormality, or ectopy. On reassessment the patient's mental status has returned to baseline, and he is feeling much improved. The etiology of his symptoms is not clear. His syncope risk score is low, and I do not have enough concern for atypical seizures that would warrant admission for EEG. The patient is followed by neurology, and will call both that provider and his primary care to schedule appointments for reassessment over the next few days. He is returning home with a family member who will be able to monitor him, and is understanding of return precautions. At this time, the patient has had a full medical evaluation and is safe for discharge to home. They are hemodynamically stable, ambulatory, and tolerating PO. They are understanding of the follow-up plan and return precautions. They left our facility without incident. Edel Ye MD Related Data Home Medications ?Medication ?Instructions ?Recorded ?Confirmed cyclobenzaprine 10 mg tablet 10 mg PO HS PRN 12/31/12 08/05/24 nitroglycerin 0.4 mg sublingual 0.4 mg sublingual PRN PRN 12/31/12 08/05/24 tablet (Nitrostat) bupropion HCl 150 mg tablet,12 hr 150 mg PO QPM 02/14/14 08/05/24 sustained-release pantoprazole 40 mg tablet,delayed 40 mg PO BID 02/14/14 08/05/24 release aspirin 81 mg tablet,delayed 81 mg PO DAILY 12/26/19 08/05/24 release (Adult Aspirin Regimen) hydroxyzine pamoate 50 mg capsule 25 mg PO Q4H PRN #90 tab-caps 12/26/19 08/05/24 sucralfate 1 gram tablet (Carafate) 1 gm PO QACHS 12/26/19 08/05/24 colchicine 0.6 mg tablet 0.6 mg PO BID PRN gout flare 11/23/20 08/05/24 docusate sodium 100 mg capsule 100 mg PO BID PRN 11/23/20 08/05/24 (Colace) polyethylene glycol 3350 17 17 gm PO DAILY PRN 11/23/20 08/05/24 gram/dose oral powder (Miralax) ranolazine 500 mg tablet,extended 500 mg PO BID #60 tabs 11/23/20 08/05/24 release,12 hr duloxetine 60 mg capsule,delayed 60 mg PO BID 12/24/20 08/05/24 release (Cymbalta) losartan 25 mg tablet 12.5 mg PO DAILY 12/24/20 08/05/24 metformin 1,000 mg tablet,extended 1,000 mg PO BID #60 tabs 10/24/21 08/05/24 release 24hr (osmotic) budesonide-formoterol HFA 80 1 inh inhalation BID 06/04/23 08/05/24 mcg-4.5 mcg/actuation aerosol inhaler glucagon 3 mg/actuation nasal spray 3 mg intranasal ONCE 06/04/23 08/05/24 acetaminophen 500 mg tablet 1,000 mg (2 x 500 mg) PO Q8H #30 05/03/24 08/05/24 tabs albuterol sulfate 90 mcg/actuation 2 puff inhalation Q4H PRN PRN 05/03/24 08/05/24 aerosol inhaler (Ventolin HFA) Wheezing #6.7 grams gemfibrozil 600 mg tablet 600 mg PO BID #20 tabs 05/03/24 08/05/24 lactulose 20 gram/30 mL oral 20 g (30 mL) PO BID #1,200 mL 05/03/24 08/05/24 solution metoprolol succinate 100 mg 200 mg (2 x 100 mg) PO DAILY #10 05/03/24 08/05/24 tablet,extended release 24 hr tabs pramipexole 0.5 mg tablet 0.5 mg PO DAILY #10 tabs 05/03/24 08/05/24 pramipexole 0.5 mg tablet 1 mg (2 x 0.5 mg) PO HS #20 tabs 05/03/24 08/05/24 rosuvastatin 10 mg tablet 20 mg (2 x 10 mg) PO HS #10 tabs 05/03/24 08/05/24 topiramate 25 mg tablet See Rx Instructions PO BID #30 tabs 05/03/24 08/05/24 bupropion HCl 300 mg 24 hr tablet, 300 mg PO QAM 05/17/24 08/05/24 extended release gabapentin 800 mg tablet 800 mg PO BID 05/17/24 08/05/24 insulin glargine 100 unit/mL (3 26 unit subcut HS 05/17/24 08/05/24 mL) subcutaneous pen (Lantus Solostar U-100 Insulin) isosorbide mononitrate 30 mg 60 mg PO DAILY 05/17/24 08/05/24 tablet,extended release 24 hr ondansetron 4 mg disintegrating 4 mg PO Q8H PRN nausea and 05/17/24 08/05/24 tablet vomiting #30 tabs triamcinolone acetonide 0.1 % 1 applic topical BID 05/17/24 08/05/24 topical cream Previous Rx's ?Medication ?Instructions ?Recorded ranolazine 500 mg tablet,extended 500 mg PO BID #60 tabs 11/23/20 release,12 hr metformin 1,000 mg tablet,extended 1,000 mg PO BID #60 tabs 10/24/21 release 24hr (osmotic) acetaminophen 500 mg tablet 1,000 mg (2 x 500 mg) PO Q8H #30 05/03/24 tabs albuterol sulfate 90 mcg/actuation 2 puff inhalation Q4H PRN PRN 05/03/24 aerosol inhaler (Ventolin HFA) Wheezing #6.7 grams gemfibrozil 600 mg tablet 600 mg PO BID #20 tabs 05/03/24 lactulose 20 gram/30 mL oral 20 g (30 mL) PO BID #1,200 mL 05/03/24 solution metoprolol succinate 100 mg 200 mg (2 x 100 mg) PO DAILY #10 05/03/24 tablet,extended release 24 hr tabs pramipexole 0.5 mg tablet 0.5 mg PO DAILY #10 tabs 05/03/24 pramipexole 0.5 mg tablet 1 mg (2 x 0.5 mg) PO HS #20 tabs 05/03/24 rosuvastatin 10 mg tablet 20 mg (2 x 10 mg) PO HS #10 tabs 05/03/24 topiramate 25 mg tablet See Rx Instructions PO BID #30 tabs 05/03/24 ondansetron 4 mg disintegrating 4 mg PO Q8H PRN nausea and 05/17/24 tablet vomiting #30 tabs Allergies Allergy/AdvReac Type Severity Reaction Status Date / Time thallium-201 (Thallium-201) Allergy Severe Pt went to Verified 08/05/24 16:14 [facility] due to med ciprofloxacin Allergy Intermediate Unknown Verified 08/05/24 16:14 lisinopril AdvReac cough Verified 08/05/24 16:14 Paper tape Allergy Intermediate rash Uncoded 08/05/24 16:14 General Stated Complaint: AMS/LOC NANCY: 3 Course Vital Signs Vital signs: Vital Signs Temperature 36.6 C 08/05/24 16:00 Pulse 85 08/05/24 16:00 Respiratory Rate 14 08/05/24 16:00 Blood Pressure 126/81 08/05/24 16:00 Pulse Oximetry 98 08/05/24 16:00 Temperature 36.6 C 08/05/24 16:00 Temperature Source Oral 08/05/24 16:00 Pulse 76 08/05/24 19:16 Pulse 71 08/05/24 19:50 Respiratory Rate 11 L 08/05/24 19:50 Respiratory Effort Normal, Non-Labored 08/05/24 16:31 Blood Pressure 105/54 L 08/05/24 19:16 Blood Pressure Mean 72 08/05/24 19:16 Blood Pressure Position Sitting 08/05/24 16:00 Pulse Oximetry 95 08/05/24 19:50 Respiratory End-tidal CO2 39 08/05/24 19:50 Oxygen Delivery Method Room Air 08/05/24 16:00 Oxygen Flow Rate 0 08/05/24 16:00 Lab/Test Results Lab/Test Results: Laboratory Tests Range/Units 08/05/24 08/05/24 08/05/24 16:24 16:24 17:51 WBC (4.4-10.8) 10^3/uL 8.93 RBC (4.36-5.78) 10^6/uL 4.87 Hgb (13.5-17.5) g/dL 14.0 Hct (40.0-50.0) % 42.8 MCV (80-95) fL 88 MCH (27.0-33.0) pg 28.7 MCHC (32.0-36.0) % 32.7 RDW (11.8-14.1) % 13.7 Plt Count (130-400) 10^3/uL 251 MPV (8.0-11.0) fL 9.9 Immature Gran % % 0.7 Neutrophils % % 57.5 Lymphocytes % % 27.5 Monocytes % % 8.2 Eosinophils % % 5.2 Basophils % % 0.9 Nucleated RBC % (0.0-0.3) % 0.0 Absolute Neutrophils (1.2-6.7) 10^3/uL 5.14 Absolute Lymphocytes (1.2-3.4) 10^3/uL 2.46 Absolute Monocytes (0.1-0.8) 10^3/uL 0.73 Absolute Eosinophils (0.0-0.7) 10^3/uL 0.46 Absolute Basophils (0.0-0.2) 10^3/uL 0.08 PT (9.1-11.1) sec 10.2 INR (0.9-1.1) 1.0 VBG pH (7.31-7.41) 7.38 VBG pCO2 (41-51) mmHg 44 VBG pO2 mmHg 44 VBG HCO3 (23-28) mmol/L 26 VBG Total CO2 (24-29) mmol/L 23 L VBG O2 Saturation % 81 VBG Base Excess (-2-3) mmol/L 0 Sodium (136-145) mmol/L 139 Potassium (3.5-5.1) mmol/L 5.0 Chloride (98-107) mmol/L 104 Carbon Dioxide (21.0-32.0) mmol/L 25.5 Anion Gap (3-11) mmol/L 9.5 BUN (7-18) mg/dL 14 Creatinine (0.70-1.30) mg/dL 1.1 Est GFR (CKD-EPI 2020) (mL/min/1.73m2) 78.30 Glucose (74-106) mg/dL 232 H Calcium (8.5-10.1) mg/dL 9.5 Magnesium (1.8-2.4) mg/dL 1.8 Total Bilirubin (0.2-1.0) mg/dL 0.25 AST (15-37) U/L < 5 L ALT (16-63) U/L 11 L Alkaline Phosphatase (46-116) U/L 73 Ammonia (11-32) umol/L 19 Creatine Kinase (39-308) U/L 98 Cancelled Troponin I (<or=76) ng/L < 4 4 Total Protein (6.4-8.2) g/dL 7.3 Albumin (3.4-5.0) g/dL 3.6 Urine Color (Yellow) Urine Clarity (Clear) Urine pH (5-8) Ur Specific [place] (1.005-1.025) Urine Protein (Neg-Trace) mg/dL Urine Ketones (Negative) mg/dL Urine Blood (Negative) Urine Nitrite (Negative) Urine Bilirubin (Negative) Urine Urobilinogen (Up to 0.2) mg/dL Ur Leukocyte Esterase (Negative) Urine Glucose (Negative) mg/dL Range/Units 08/05/24 08/05/24 19:00 19:34 WBC (4.4-10.8) 10^3/uL RBC (4.36-5.78) 10^6/uL Hgb (13.5-17.5) g/dL Hct (40.0-50.0) % MCV (80-95) fL MCH (27.0-33.0) pg MCHC (32.0-36.0) % RDW (11.8-14.1) % Plt Count (130-400) 10^3/uL MPV (8.0-11.0) fL Immature Gran % % Neutrophils % % Lymphocytes % % Monocytes % % Eosinophils % % Basophils % % Nucleated RBC % (0.0-0.3) % Absolute Neutrophils (1.2-6.7) 10^3/uL Absolute Lymphocytes (1.2-3.4) 10^3/uL Absolute Monocytes (0.1-0.8) 10^3/uL Absolute Eosinophils (0.0-0.7) 10^3/uL Absolute Basophils (0.0-0.2) 10^3/uL PT (9.1-11.1) sec INR (0.9-1.1) VBG pH (7.31-7.41) VBG pCO2 (41-51) mmHg VBG pO2 mmHg VBG HCO3 (23-28) mmol/L VBG Total CO2 (24-29) mmol/L VBG O2 Saturation % VBG Base Excess (-2-3) mmol/L Sodium (136-145) mmol/L Potassium (3.5-5.1) mmol/L Chloride (98-107) mmol/L Carbon Dioxide (21.0-32.0) mmol/L Anion Gap (3-11) mmol/L BUN (7-18) mg/dL Creatinine (0.70-1.30) mg/dL Est GFR (CKD-EPI 2020) (mL/min/1.73m2) Glucose (74-106) mg/dL Calcium (8.5-10.1) mg/dL Magnesium (1.8-2.4) mg/dL Total Bilirubin (0.2-1.0) mg/dL AST (15-37) U/L ALT (16-63) U/L Alkaline Phosphatase (46-116) U/L Ammonia (11-32) umol/L Creatine Kinase (39-308) U/L Troponin I (<or=76) ng/L 4 Total Protein (6.4-8.2) g/dL Albumin (3.4-5.0) g/dL Urine Color (Yellow) Yellow Urine Clarity (Clear) Clear Urine pH (5-8) 5.5 Ur Specific [place] (1.005-1.025) 1.025 Urine Protein (Neg-Trace) mg/dL Negative Urine Ketones (Negative) mg/dL Negative Urine Blood (Negative) Negative Urine Nitrite (Negative) Negative Urine Bilirubin (Negative) Negative Urine Urobilinogen (Up to 0.2) mg/dL 0.2 Ur Leukocyte Esterase (Negative) Negative Urine Glucose (Negative) mg/dL 500 H Medical Decision Making Quality:SDOH Health Related Social Needs: Health related social needs transportation insecurity( Z59.82) PFSH All Active Problems (Updated 08/05/24 @ 20:25 by Edel Ye MD) Episode of unresponsiveness (Acute) History of PSVT (paroxysmal supraventricular tachycardia) (Acute) Hyperammonemia (Acute) Hyperglycemia (Acute) Thyroid nodule (Acute) Hyperplastic colon polyp (Acute) Tubular adenoma of colon (Acute) CAD (coronary artery disease) (Chronic) a. LAD stent at [facility] 2012 b. Restenosis of LAD and two more stents to LAD at [facility] 01/2014 c. 50% proximal RCA lesion d. Recurrent angina on Ranolazine e. Normal [place] scan 08/2014 Tobacco abuse (Chronic) History of TIA (transient ischemic attack) (Chronic) Obesity (Chronic) Diabetes mellitus, type II (Chronic) Hypertension (Chronic) Hyperlipidemia (Chronic) Atherosclerotic cardiovascular disease (Acute) Atypical angina (Acute) Screening for colon cancer (Acute) Encounter for colorectal cancer screening (Acute) Medical History Encephalopathy 04/08/23 with syncope, [facility] ER intubated to [facility] d/c 04/09/23 [facility] Hemiplegic migraine (03/21/15) Migraine headache with aura (03/21/15) Medication overuse headache (03/21/15) Knee pain Diabetes mellitus Ketoacidosis due to secondary diabetes mellitus Low back pain Asthma COPD (chronic obstructive pulmonary disease) Abscess of right groin Dental infection Discharge planning issues Hypomagnesemia Ileitis Hematuria Smoker Myocardial infarction, inferior wall 2013 Hemiplegic migraine With intractable migraine, so stated, without mention of status migrainosus Postural lightheadedness Gastropathy Duodenitis Syncope Left cervical radiculopathy Gastroparesis diabeticorum RLS (restless legs syndrome) Tachycardia, paroxysmal Myalgia Leg pain, right Family history of colon cancer Reaction, situational Headache Acute diarrhea Abdominal pain Hypotensive episode Diverticulitis Peripheral neuropathy Palpitations Chronic pain Knee pain, left Hip pain, right Cervicalgia Shoulder pain, left Depression H/O: gout GERD (gastroesophageal reflux disease) Fibromyalgia Thyroid nodule Cholelithiasis a. cholecystectomy Surgical History Hx of discectomy History of arthroscopic surgery of shoulder Hx of tonsillectomy History of cholecystectomy History of knee surgery History of colonoscopy (~09/2021) History of coronary artery stent placement H/O surgical procedure a. cath and stents b. cholecystectomy c. back surgery Family History Other Cancer Colon cancer Social History Smoking/Tobacco Use Status: Current every day Tobacco Type: cigarettes Smoking risk assessment performed?: Yes Alcohol Intake: former Drug use: Daily Substance use type: marijuana Details: 2-3 joints/day Household members: spouse Housing: house Number of Children: 2 current occupation: Disabled Current gender identity: male What type of physical activity do you participate in: walking, independent ambulation and additional Details: work at home (outside work) Do you feel safe at home: Yes Do you feel safe in your relationship?: Yes
--- NOTE | 2024-08-08 07:36 | NUR.NOTE ---
Access chart to reconcile EKG orders with EKG's in [employer]. Duplicte order cancelled. Nursing Note:
== END 2024-08-05 20:54 | disposition home or self-care (01) ==
PROVIDERS: Emergency Provider Emergency Medicine; PCP Family Medicine
DX: E11.69 Type 2 diabetes mellitus with other specified complication (principal); I25.10 Atherosclerotic heart disease of native coronary artery without angina pectoris; E78.5 Hyperlipidemia, unspecified; I10 Essential (primary) hypertension; E11.65 Type 2 diabetes mellitus with hyperglycemia
CPT/HCPCS: 36415; 36416; 70496; 70498; 80053; 82550; 82805; 82962; 93005; 99285; 71045; 71046; 81003; 82140; 83735; 84484; 85025; 85610; 93010; 99284; J3490

== ENCOUNTER 2024-08-19 14:48 | Outpatient (REF) | payer MEDICARE, MEDICAID, SELFPAY ==
--- OUTSIDE RECORDS SUMMARY | 2024-08-19 14:51 | XMS_ITS | Encounter Summary ---
Author Organization [facility] Address [facility] [place] [address] Care Team Providers Care Director Speech And Hearing Name Role Phone Coni Lim MD Primary Care Provider [phone] Encounter Details Date Type Department Care Team (Late st Contact Info) Description 01/13/2022 Ancillary Procedure Radiology Library at [facility] [place] [address] Cecilia Maza MD [facility] [place] [address] Social History Tobacco Use Types Packs/Day Years [...] Ultrasound Study (01/13/2022 12:00 AM EDT) Narrative [facility] - 02/25/2022 4:21 PM EDT This exam is auto-finalizing. It's purpose is for storage only. Cecilia Maza MD IMG FILM LIBRARY ORDERABLES [facility] [place], [place] documented in this encounter Visit Diagnoses Not on filedocumented in this encounter Care Teams Director Speech And Hearing Relationship Specialty Start Date End Date Coni Lim MD [address] [place] [address] PCP - General 07/16/10 documented as of this encounter
--- OUTSIDE RECORDS SUMMARY | 2024-08-19 14:51 | XMS_ITS | Encounter Summary ---
Author Organization [facility] Address [facility] [place] [address] Care Team Providers Care Margarine Churn Operator Name Role Phone Coni Lim MD Primary Care Provider [phone] Encounter Details Date Type Department Care Team (Late st Contact Info) Description 04/07/2023 7:35 PM EDT Ancillary Procedure Radiology Library at [facility] [place] [address] Patel Griggs MD [facility] [place] [address] Social History Tobacco Use Types Packs/Day Years [...] Abdomen Pelvis (04/07/2023 7:23 PM EDT) Narrative [facility] - 04/07/2023 7:23 PM EDT This exam is auto-finalizing. It's purpose is for storage only. Patel Griggs MD [facility] FILM LIBRARY ORD ERABLES [place], [place] documented in this encounter Visit Diagnoses Not on filedocumented in this encounter Care Teams Margarine Churn Operator Relationship Specialty Start Date End Date Coni Lim MD [address] [place] [address] PCP - General 07/16/10 documented as of this encounter
--- OUTSIDE RECORDS SUMMARY | 2024-08-19 14:51 | XMS_ITS | Encounter Summary ---
Author Organization [facility] Address [facility] [place] [address] Care Team Providers Care Clinical Staff Educator Name Role Phone Coni Lim MD Primary Care Provider [phone] Encounter Details Date Type Department Care Team (Late st Contact Info) Description 04/07/2023 7:25 PM EDT Ancillary Procedure Radiology Library at [facility] [place] [address] Patel Griggs MD [facility] [place] [address] Social History Tobacco Use Types Packs/Day Years [...] IMG FILM LIBRARY ORD ERABLES DH RAD [place], [place] documented in this encounter Visit Diagnoses Not on filedocumented in this encounter Care Teams Clinical Staff Educator Relationship Specialty Start Date End Date Coni Lim MD [address] [place] [address] PCP - General 07/16/10 documented as of this encounter
--- OUTSIDE RECORDS SUMMARY | 2024-08-19 14:51 | XMS_ITS | Encounter Summary ---
Author Organization [facility] [place] [address] Care Team Providers Care Occ Ther Name Role Phone Coni Lim MD Primary Care Provider [phone] Encounter Details Date Type Department Care Team (Late st Contact Info) Description 11/25/2021 Telephone Cardiology at [address] [address] Yessy Pugh Social History Tobacco Use Types [...] they received the ABSORB stent. Certified mail #[id number] documented in this encounter Plan of Treatment Not on file documented as of this encounter Visit Diagnoses Not on filedocumented in this encounter Care Teams Occ Ther Relationship Specialty Start Date End Date Coni Lim MD [address] [place] [address] PCP - General 07/16/10 documented as of this encounter
--- OUTSIDE RECORDS SUMMARY | 2024-08-19 14:51 | XMS_ITS | Encounter Summary ---
Author Organization [facility] Address [facility] [place] [address] Care Team Providers Care Program Trainer Name Role Phone Coni Lim MD Primary Care Provider [phone] Encounter Details Date Type Department Care Team (Late st Contact Info) Description 04/07/2023 7:30 PM EDT Ancillary Procedure Radiology Library at [facility] [place] [address] Patel Griggs MD [facility] [place] [address] Social History Tobacco Use Types Packs/Day Years [...] And Spine (04/07/2023 7:22 PM EDT) Narrative [facility] - 04/07/2023 7:22 PM EDT This exam is auto-finalizing. It's purpose is for storage only. Patel Griggs MD [facility] FILM LIBRARY ORD ERABLES DH [place], [place] documented in this encounter Visit Diagnoses Not on filedocumented in this encounter Care Teams Program Trainer Relationship Specialty Start Date End Date Coni Lim MD [address] [place] [address] PCP - General 07/16/10 documented as of this encounter
--- OUTSIDE RECORDS SUMMARY | 2024-08-19 14:51 | XMS_ITS | Encounter Summary ---
Author Organization [facility] Address [facility] [place] [address] Care Team Providers Care Gear Keeper Name Role Phone Coni Lim MD Primary Care Provider [phone] Encounter Details Date Type Department Care Team (Late st Contact Info) Description 11/22/2021 Ancillary Procedure Radiology Library at [facility] [place] [address] Cecilia Maza MD [facility] [place] [address] Social History Tobacco Use Types Packs/Day Years [...] Maza MD IMG FILM LIBRARY ORDERABLES DH [place], [place] documented in this encounter Visit Diagnoses Not on filedocumented in this encounter Care Teams Gear Keeper Relationship Specialty Start Date End Date Coni Lim MD [address] [place] [address] PCP - General 07/16/10 documented as of this encounter
--- OUTSIDE RECORDS SUMMARY | 2024-08-19 14:51 | XMS_ITS | Encounter Summary ---
[place] [address] Care Team Providers Care Research Manufacturing Operator Name Role Phone Coni Lim MD Primary Care Provider [phone] Reason for Referral * Consultation (Routine) - Closed Specialty Diagnoses / Procedures Referred By Ruby garvin Referred To Contact General Surgery Diagnoses Nontoxic single thyroid nodule Kevin Landaverde MD [address] [place] [address] [facility] [address] [place] [address] Referral ID Status Reason Start Date Expiration Date V isits Requested Visits Authorized [id number] Closed Consult, Test & Treat 01/30/2022 01/30/2023 1 1 Encounter Details Date Type Department Care Team (Late st Contact Info) Description 01/30/2022 Transcribe Orders [place] [id number] Kevin Landaverde MD [address] [place] [address] [place], [place] [id number] Nontoxic single thyroid nodule Social History Tobacco [...] goiter documented in this encounter Care Teams Research Manufacturing Operator Relationship Specialty Start Date End Date Coni Lim MD [address] [place] [address] PCP - General 07/16/10 documented as of this encounter
--- OUTSIDE RECORDS SUMMARY | 2024-08-19 14:51 | XMS_ITS | Encounter Summary ---
Author Organization [place] [address] Care Team Providers Care Manager Online Name Role Phone Coni Lim MD Primary Care Provider [phone] Reason for Referral * Audiology Exam (Routine) - Closed Specialty Diagnoses / Procedures Referred By Contac t Referred To Contact Audiology Diagnoses Bilateral hearing loss, unspecified hearing loss type Coni Lim MD [address] [place] [address] [facility] [address] [place] [id number] Referral ID Status Reason Start Date Expiration Date V isits Requested Visits Authorized [id number] Closed Specialty Service Requested PCP Updated and/or Approved 12/04/2023 06/06/2024 6 6 Encounter Details Date Type Department Care Team (Latest Contact Info) Description 12/24/2023 Transcribe Orders [facility] Incoming Referrals [phone] Coni Lim MD [address] [place], [place] [id number] Bilateral hearing loss, unspecified hearing loss type [...] type documented in this encounter Care Teams Manager Online Relationship Specialty Start Date End Date Coni Lim MD [address] [place] [address] PCP - General 07/16/10 documented as of this encounter
--- OUTSIDE RECORDS SUMMARY | 2024-08-19 14:51 | XMS_ITS | Clinical Summary ---
Author Organization [facility] Address [facility] [place] [address] Care Team Providers Care Rn Emergency Name Role Phone Coni Lim MD Primary Care Provider [phone] Allergies Active Allergy Reactions Criticality Noted Date [...] be different from the original. Notified by [facility] in [place], [place] pt will need PA for Brilinta. Had DR. Nagy complete PA form. CRC faxed to [facility] with Fax confirmation received.. CRC Faxed copy of Brilinta coupon to [facility]. 30 day supply will be able to be filled on Thursday 06/07. CRC contacted [facility] in [place], [place]. They confirmed they can dispense 10 90 mg tabs to pt until Thursday. Pt's Dasia notified by CRC of plan to machine operator hop picker Brilintal Rx at [facility] and then Full Rx from [facility] on Thursday. Pt's verbalized understanding. CRC notified Dr. Nagy of plan. Chester GRAHAM, RN Clinical Patternmaker Pressure Cast Pager [phone] Problem Noted Date Diagnosed Date Conjunctival lesion [...] with 3.5 X 18 mm [facility] - [facility] 2009 post abnormal nuc stress +IW, EF normal - Recurrent angina, CCS class III - Cardiac catheterization 06/03/2012: 2 vessel CAD (LAD and LCX), +FFR of both lesions s/p PCI to pOM1 (3.0 x 18 mm Xience JACINDA) and mLAD (3.0 x 20 mm Promus Element JACINDA) Immunizations Name Administration Dates Next Due Influenza (Novel [id number]) Injectable 05/24/2009 Influenza PF, Split 07/30/2013 Influenza Trivalent w/Preservative 06/15/2012 Influenza Vaccine, Whole 05/24/2009,06/21/2008 Pneumococcal 23-Valent Polysaccharide (Pneumovax 23) 05/24/2009 Family History Medical History Relation Comments Heart Disease Brother 1 Heart Disease Brother 2 Diabetes Brother 3 Diabetes Brother 4 Hypertension Brother 5 Hypertension Brother 6 Hyperlipidemia Brother 7 Hyperlipidemia Brother 8 Heart Disease Father Myocardial Infarction Father [place], CABG Diabetes Mother Heart Disease Mother Hyperlipidemia [...] Glucose Fasting 195(H) 65 - 99 mg/dL [facility] Comment: ?Fasting* Glucose Interpretive [...] Mellitus, Position Statement from the [employer] [place] Diabetes Association. ??Diabetes Care, Volume 33, Supplement 1, Aug 2009 Blood Urea Nitrogen 9(L) 10 - 20 mg/dL [facility] Creatinine 0.79(L) 0.80 - 1.50 mg/dL [facility] Sodium 134(L) 135 - 145 mmol/L [facility] Potassium 4.1 3.5 - 5.0 mmol/L [facility] Comment: Please note: ??Patients with WBC >100,000 may have falsely elevated Potassium levels. ??For accurate Potassium quantification in these patients send serum separator tube (gold top) for subsequent determinations. ??Contact the Clinical Chemistry Laboratory if there are any questions. Chloride 103 98 - 107 mmol/L [facility] Carbon Dioxide 18(L) 22 - 31 mmol/L [facility] Anion Gap 13 5 - 15 mmol/L [facility] Calcium 9.4 8.5 - 10.5 mg/dL [facility] Est Glomerular Filtration Rate 102 >=60 mL/min/1. 73 m?? [facility] Comment: This patient? s [...] In Lab Coni GROVER CHEMISTRY ORDERABLE S [facility] [place] [address] * (ABNORMAL) Hemoglobin A1c (03/15/2019 5:01 AM EDT) Hemoglobin A1c 6.8(H) 4.3 - 5.6 % [facility] Comment: Reference Range: 4.3 [...] Mellitus, Diabetes Care 2013; 36: Suppl. 1, Y72-43 Estimated Average Glucose 148 mg/dL [facility] Comment: eAG equivalents for [...] into estimated average glucose values. ??Diabetes Care 2008:31(8):3476-1789. Blood specimen (specimen) 03/15/2019 5:01 AM EDT 03/15/2019 5:12 AM EDT Narrative Resulting Agency Comment Spec In Lab Siri Bush SCOW HAND CHEMISTRY ORDERABL ES [facility] [place] [address] from Last 3 Months or Most Recently [...] is based on Patients wishes. Care Teams Rn Emergency Relationship Specialty Start Date End Date Coni Lim MD [address] [place] [address] PCP - General 07/16/10
--- OUTSIDE RECORDS SUMMARY | 2024-08-19 14:51 | XMS_ITS | Encounter Summary ---
Author Organization [facility] Address [facility] [place] [address] Care Team Providers Care Baker Pastry Name Role Phone Coni Lim MD Primary Care Provider [phone] Encounter Details Date Type Department Care Team (Late st Contact Info) Description 04/07/2023 7:40 PM EDT Ancillary Procedure Radiology Library at [facility] [place] [address] Patel Griggs MD [facility] [place] [address] Social History Tobacco Use Types Packs/Day Years [...] And Spine (04/07/2023 7:25 PM EDT) Narrative [facility] - 04/07/2023 7:25 PM EDT This exam is auto-finalizing. It's purpose is for storage only. Patel Griggs MD [facility] FILM LIBRARY ORD ERABLES DH [place], [place] documented in this encounter Visit Diagnoses Not on filedocumented in this encounter Care Teams Baker Pastry Relationship Specialty Start Date End Date Coni Lim MD [address] [place] [address] PCP - General 07/16/10 documented as of this encounter
--- OUTSIDE RECORDS SUMMARY | 2024-08-19 14:51 | XMS_ITS | Encounter Summary ---
Author Organization [facility] Address [facility] [place] [address] Care Team Providers Care Radio Reporter Name Role Phone Coni Lim MD Primary Care Provider [phone] Encounter Details Date Type Department Care Team (Late st Contact Info) Description 04/07/2023 External [place] [address] Social History Tobacco Use Types Packs/Day Years [...] on filedocumented in this encounter Care Teams Radio Reporter Relationship Specialty Start Date End Date Coni Lim MD [address] [place] [address] PCP - General 07/16/10 documented as of this encounter
--- OUTSIDE RECORDS SUMMARY | 2024-08-19 14:51 | XMS_ITS | Encounter Summary ---
Author Organization [facility] Address [facility] [place] [address] Care Team Providers Care Ammonia Still Operator Name Role Phone Coni Lim MD Primary Care Provider [phone] Encounter Details Date Type Department Care Team (Late st Contact Info) Description 04/07/2023 [place] [address] Patel Griggs MD [facility] [place] [address] Social History Tobacco Use Types Packs/Day Years [...] EDT Neurology Attending I spoke with caregivers [facility]. There is no capacity here to accept [...] recommended trying to transfer the patient to [facility] Patel Griggs MD [place] [address] Pager #[phone] Email: [email or web address] documented in this encounter Plan of Treatment Not on file documented as of this encounter Visit Diagnoses Not on filedocumented in this encounter Care Teams Ammonia Still Operator Relationship Specialty Start Date End Date Coni Lim MD [address] [place] [address] PCP - General 07/16/10 documented as of this encounter
--- OUTSIDE RECORDS SUMMARY | 2024-08-19 14:52 | XMS_ITS | Encounter Summary ---
Author Organization [facility] [place] [address] Care Team Providers Care Underwriting Intern Name Role Phone Coni Lim MD Primary Care Provider [phone] Encounter Details Date Type Department Care Team (Late st Contact Info) Description 09/28/2019 [place] [address] Keeley Paredes MD Social History Tobacco Use Types Packs/Day Years [...] on filedocumented in this encounter Care Teams Underwriting Intern Relationship Specialty Start Date End Date Coni Lim MD [address] [place] [address] PCP - General 07/16/10 documented as of this encounter
--- OUTSIDE RECORDS SUMMARY | 2024-08-19 14:52 | XMS_ITS | Encounter Summary ---
Author Organization [facility] Address [facility] [place] [address] Care Team Providers Care Surveyor Name Role Phone Coni Lim MD Primary Care Provider [phone] Reason for Visit * Auth/Cert Specialty Diagnoses / Procedures Referred By Ruby garvin Referred To Contact Diagnoses Unstable angina Chest pain Procedures EMERGENCY IPI Referral ID Status Reason Start Date Expiration Date Visits Re quested Visits Authorized [id number] 1 1 Encounter Details Date Type Department Care Team (Late st Contact Info) Description 2021 7:02 PM EDT - 06/10/2021 6:29 PM EDT Hospital Encounter Inter[place] [id number] Zuleyka Hodgson MD [facility] [place] [address] Supa Alegria MD [facility] [place] [address] Chest pain, unspecified type Discharge Disposition: Home [...] Romeo Coe Patient Age: 56 y.o. Language: South African Race: White Ethnicity: Not nor Admit date: 2021 Discharge date and time: 06/10/2021 5:40 PM Attending Physician: Supa Alegria MD Discharge Physician: Supa Alegria MD Follow-up Recommendations for Providers: Romeo Coe is a 56 year old male admitted for chest pain concerning for unstable angina. 1. ASCVD / Microvascular angina: [facility] 06/10/21 without obstructive CAD and with [...] Escobar APRN Sarah Hansen, PA-C Cardiovascular Medicine [phone] Discharge Diagnoses (Hospital Problems) and Secondary Diagnoses (Chronic Problems): Active Hospital Problems Diagnosis ??? Unstable angina ??? Chest pain ??? Smoker ??? CAD (coronary artery disease) ??? Dyslipidemia ??? HTN (hypertension) ??? DM (diabetes mellitus) Resolved Hospital Problems No resolved problems to display. Active Non-Hospital Problems Diagnosis ??? Hx-TIA (transient ischemic attack) ??? GERD (gastroesophageal reflux disease) ??? Conjunctival lesion Operations/Major Procedures: [facility] 06/10/21 Hemodynamics: Left Heart Pressures Resting: [...] 2011, LAD stent in 2012, RCA stent [id number]. His most recent coronary angiogram (2019) showed [...] since 2011 and last JACINDA to RCA [id number]. Last LHC 2019 with residual ~40% LAD [...] SOB prior to discharge. Follow up with plant etiologist, Dr. Gutierrez, was arranged. ?? Right??groin cellulitis, abscess with spontaneous drainage Patient noted to have right groin erythema consistent with cellulitis. He remained afebrile and without leukocytosis. Blood cultures obtained at OSH were NGTD at 2 days (spoke with microbiology at [facility] on 06/10/21). These were [...] CTA chest was made. ?? Diabetes mellitus, dyd-zqmrrdo-kppaucffn, uncontrolled A1c of 9.4%. Home metformin held for cath. Additional coverage with sliding scale and meal associated insulin. Hold metformin for 48 hours after contrast exposure. Diabetes management team consulted.Recommendations to continue metformin 1000mg BID and further management per PCP. Could consider SGLT2i. ?? HTN BP trend 12 hours prior to discharge were BP: (102-134)/(65-81) . He was continued on home mxshwauk71.5mg daily, metoprolol succinate 100mg daily and Imdur [...] Studies and Lab Data: Blood cultures at [facility] and [facility]. [...] PF, Split 07/30/2013 ??? Influenza Vaccine (Novel) [id number], Injectable 05/24/2009 ??? Influenza Vaccine w/Preservative, Split [...] of 8AM-5PM please call the Cardiology Clinic [phone] to speak with a nurse. All other hours please call the Hospital Apprise Counselor [phone] and ask to speak to the costume specialist on-call. Return to work: One week Driving: [...] Time PCP COLEEN Wen [address] [place] [address] Jun 20 10:00am Milling Machine Tender Dr. Gutierrez [facility] Cardiology [phone] ThursdayJul 23 11:40am Discharge References/Attachments Angina (South African) Discussed with MD Coni Escobar PA-C Pager #[phone] 06/10/2021 documented in this encounter Discharge Instructions [...] of 8AM-5PM please call the Cardiology Clinic [phone] to speak with a nurse. All other hours please call the Hospital Apprise Counselor [phone] and ask to speak to the costume specialist on-call. Return to work: One week Driving: [...] Time PCP COLEEN Wen [address] [place] [address] Jun 20 10:00am Milling Machine Tender Dr. [facility] Cardiology [phone] ThursdayJul 23 11:40am * Patient Instructions* Coni Lew PA - 06/10/2021 3:07 PM EDT * Attachments The following attachments cannot be sent through Care Everywhere. * Angina (South African) documented in this encounter Medications at Time [...] Transport initiated/not confirmed: Spoke with NOELLE from [facility] who initiated a ride with their scheduling department/dispatch to pick patient up at discharge 06/10/21 from the MAIN entrance at ~18:00 en route to HOME UPDATE 16:06 Discharge Transportation confirmed: Spoke with ELMIRA from [facility] who confirmed a commercial collections driver provided by transportation economics teacherULISES will arrive to pick patient up at discharge 06/10/21 from the MAIN entrance at 18:00 en route to HOME. Bedside nurse notified via eDH chat. [facility] PHONE: [phone] * Supa Alegria MD - 06/10/2021 8:04 AM EDT Images from the original note were not included. Inpatient Cardiology Progress Note Patient Name: Romeo Coe Service: ROTARY PEEL OVEN TENDER / PA Responsible Attending: Supa Alegria MD [...] nausea overnight,patient reports resolution. In agreement for [facility] today. Continues on IV antibiotics for [...] since 2011 and last JACINDA to RCA [id number]. Last LHC 2018 with residual ~40% LAD [...] PRN EKG for chest pain Plan for [facility] today, remains NPO Right groin cellulitis, abscess [...] chest at this time ?? Diabetes mellitus, zgv-etlerju-xdpjipfkv, uncontrolled A1c of 9.4% Hold home metformin [...] Discussed with MD Coni Escobar PA-C Pager #[phone] 06/10/2021 Cardiology Attending Note I have seen and examined the patient. I agree with the findings above. Of note, he is feeling well today. His groin site shows no evidence of fluid collection. Blood cultures show no growth. We will proceed with coronary angiography and possible PCI Supa Alegria MD [facility] Total time spent on review of records [...] Progress Note Patient Name: Romeo Coe Service: ROTARY PEEL OVEN TENDER / PA Responsible Attending: Supa Alegria MD Reason for continued hospitalization: Evaluation and management of unstable angina- cath Right groin cellulitis-IV abx Medication adjustment Active Problems: Active Hospital Problems Diagnosis ??? Unstable angina ??? Chest pain ??? Smoker ??? CAD (coronary artery disease) -Coronary Angio 07/29/2013: 65% (FFR 0.74) mid LAD lesion s/p PCI with 3.5 X 18 mm JACINDA - [facility] 2009 post abnormal nuc stress +IW, [...] CTA at this time ?? Diabetes mellitus, ius-gfrllod-euatvwvfz Poor control with A1c of 9.4 Carb [...] proceed tomorrow on antibiotics. Supa Alegria MD [facility] Total time spent on review of records [...] PCP: Coni Lim MD PCP phone number: [phone] Date of Admission: 2021 ( Hospital Day 0 days ) Attending:Zuleyka Hodgson MD Patient Active Problem List Diagnosis ??? ','Unstable angina ??? Chest pain ??? Smoker ??? CAD (coronary artery disease) Overview Note: -Coronary Angio 07/29/2013: 65% (FFR 0.74) mid LAD lesion s/p PCI with 3.5 X 18 mm JACINDA - [facility] 2009 post abnormal nuc stress +IW, [...] of Onset ??? Myocardial Infarction Father 46 [place], CABG ??? Heart Disease Father ??? Diabetes [...] Lives with and daughter at home in [place], [place]. He is disabled now. He used [...] in the last 7068 hours. Invalid input(s): UIIFQHAIQWR8I No results for input(s): POCGLU in the last 168 hours. Heme No results for input(s): LDH, HAPTOGLOBIN, URICACID in the last 168 hours. ABG (Arterial Blood Gas) No results found for: PHART, PO2ART, NDD3QZD, ZMX2YSI Microbiology: Microbiology Results (Last 30 days) No [...] (porcine) AND heparin (porcine) infusion Recent diagnostics: [facility] (2019): Left Main The left main [...] Obtain Echo - Serial cardiac enzymes - site monitor - Cardiac cath in a.m. - [...] infection. No hypoxia or tachycardia #Diabetes mellitus, qgw-yhziokk-mkcwvfkdt, poor control with A1c of 9.4 -Diabetic [...] Pending clinical course Isaiah Hoyos MD Pager #[phone] 06/08/21 8:56 PM documented in this encounter [...] cath without complications. Coni Lew PA-C Pager #[phone] 06/10/2021 * Initial Assessments - Ruthie Macias RN - 06/10/2021 3:39 PM EDT Office of Care Management Initial Assessment Ruthie Macias RN reviewed record and discussed patient with Care Team. Source of Information: Team, bedside nurse, medical record, and Patient Introduced self/reviewed role; services accepted. Reason for Hospitalization: unstable angina Last COVID test: Lab Results Component Value Date [id number] Not Detected 06/09/2021 Past medical History: Past [...] dyer would be surrogate decision maker per [place] surrogatedecision making law. (Only good for 180 days) Any patient receiving care at [facility] must abide by [place] law. The hierarchy for surrogate decision making [...] (i) The agent with financial power of cfd engineer or a conservator appointed in accordance with [...] cane - straight Home Address confirmed as: [address] [place] [address] Social & Family Supports: All names listed below confirmed with patient as current and correct Extended Emergency Contact Information Primary Emergency Contact: Dasia Coe Address: [address] [place] [address] of [facility] Mobile Relation: Spouse Current Care Provided by: [...] MEDICAID [place] Prescription Coverage: Yes Preferred Pharmacy: [id number] [place], [place] - [address] [place] [address] [place] [id number] [place] Status: Patient is a : No Primary Care Provider: Coni Lim MD [phone] Patient/Caregiver Goals of Treatment: dc to home [...] ambulation, driving. He drove his car to [facility] and then required a BLS to transport here to [facility]. He will require assistance in finding A ride to home when he is dced. Pt has supports in place to accessthe necessary care and or follow up after dishcharge and there are no RN CM or GROCERY STORE COURTESY CLERK needs that are identified at this time Plan: dc to home A member of the Care Management team will continue to monitor progress, follow for continuity of care and assist with transition of care planning. Ruthie Macias RN CM Ext [phone] Pager [phone] * Consult Note - Elena Zaragoza APRN [...] management and to provide a review of moth exterminator diabetes care. Diabetes History: Romeo Coe has [...] QPM ??? [OCT Hold] Vancomycin Level - [facility] Order Reminder NOT APPLICABLE Once ??? [OCT [...] of Onset ??? Myocardial Infarction Father 46 AR, CABG ??? Heart Disease Father ??? Diabetes [...] 10 gm carb ratio for each meal) USP diabetes care: Medications - Outpatient treatment regimen recommendations pending based on the hospital course. Monitoring - continue BG tid ac & hs Diet - low fat/low carb diet Exercise - weight-bearing exercise 30 min/day, as tolerated Thank you for allowing us to provide care for your patient Elena Zaragoza APRN Endocrinology Pager [phone] minutes of this 80 minute visit was spent with the patient in counseling on diabetes and treatment plan, reviewing all glucose and insulin data as well as relevant laboratory results with the patient, and coordination of care on the inpatient unit * Brief Op Note - Jose Trimble MD - 06/10/2021 11:37 AM EDT Brief Operative Note Patient Name: Romeo Coe : [id number] MR#: [id number] Case Date: 06/10/2021 Milling Machine Tender: * Jose Trimble MD - Primary * Syed Solorio MD - Fellow Preoperative diagnosis: nstemi Postoperative diagnosis:NSTEMI with stable coronary anatomy Preliminary Cardiac Catheterization Procedure Note: Procedure(s) performed: Coronary Angiography, Left Heart Cath Baseline Frailty Assessment: Definitions from [place] Study of Health and Aging Clinical Frailty [...] Full report to follow. JOSE TRIMBLE MD garment supervisor Pager [phone] * Plan of Care - Fabienne Morelos RN - 06/09/2021 2:57 PM EDT OUTCOME EVALUATION NOTE: OUTCOME SUMMARY: A/O x4. VSS on RA. NSR on tele. Heparin gtt maintained per protocol.IV zosyn and vanc given per protocol. (see MAR). BG elevated, MD notified, insulin scale adjusted. PLAN MOVING FORWARD: BC results custodial laborer D/c planning INDIVIDUALIZED FALL PREVENTION INTERVENTIONS: [...] SOB reported, remains on room air overnight. [place] very nauseous after he went to the [...] further details. Isaiah Hoyos MD 2021 Pager [phone] documented in this encounter Plan of Treatment [...] 06/09/2021 5:50 AM EDT RAPID COVID-19 PCR ([facility]) Routine 06/09/2021 5:45 AM EDT POCT GLUCOSE [...] * POCT Glucose (06/10/2021 4:20 PM EDT) [facility] Glucose, POC 177 65 - 199 mg/dL [facility] Comment: Supplemental ranges: <140 mg/dL before meals <180 mg/dL all other times of the day Blood 06/10/2021 4:20 PM EDT 06/10/2021 4:20 PM EDT Supa Alegria MD POINT OF CARE TEST O RDERABLES [facility] [place] [address] * Troponin (06/10/2021 1:07 PM EDT) [facility] Troponin-T <0.01 0.00 - 0.00 ng/mL [facility] Comment: The 99th percentile for Troponin T is less than 0.01 ng/mL, any detectable cTnT concentration using this assay should be considered elevated. According to the third universal definition of myocardial infarction the following criteria with a clinical presentation consistent with acute myocardial ischemia meets the diagnosis for a myocardial infarction (AR). Detection of a rise and/or fall of cTnT, with at least one value greater than the 99th percentile (> or = 0.01) and with at least one of the following ?? Symptoms of ischemia ?? New or presumed new significant WI-kzhtivm-H wave (ST-T) changes or new left bundle [...] additional sample may be indicated. Reference: Third Vanzant Definition of Myocardial Infarction. Journal of the [place] College of Cardiology 2012;60:1581-98 Blood 06/10/2021 1:07 PM EDT 06/10/2021 1:18 PM EDT Narrative Resulting Agency Comment Spec In Lab Isaiah Hoyos MD CHEMISTRY ORDERABLE S Performing Organization Address City/[facility]/ZIP Co de Phone Number [facility] [place] [address] * POCT Glucose (06/10/2021 11:58 AM EDT) [facility] Glucose, POC 175 65 - 199 mg/dL [facility] Comment: Supplemental ranges: <140 mg/dL before meals <180 mg/dL all other times of the day Blood 06/10/2021 11:5 8 AM EDT 06/10/2021 11:58 AM EDT Supa Alegria MD POINT OF CARE TEST O RDERABLES [facility] [place] [address] * CARDIAC CATHETERIZATION (06/10/2021 11:45 AM EDT) Anatomical Region Laterality Modality Other Narrative 06/10/2021 12:54 PM EDT ?[facility] ? Cardiac Catheterization/Intervention Report ? Patient Name: Coe, Romeo A. ? Procedure Date: 06/10/2021 ? A #: [id number] ? Primary Physician: Trimble, Jose V ? Case #: [id number] ? File Name: [id number] ? Catheterization Order Number: [id number] ? [facility] ? Final Report [place], [place] ? Patient Name: ? Romeo Coe ? ID#: ?[id number] ? : ?1965 ? Procedure Date: ? [...] was ?designated as ASA Class II. The [facility] clinical frailty scale is 2: [...] procedure was Urgent. The indication for ?the energy systems laboratory director visit is worsening angina. Chest pain symptom [...] Procedure Note Jose Trimble MD - 06/10/2021 [facility] Cardiac Catheterization/Intervention Report Patient Name: Coe Romeo PopNatalie Procedure Date: 06/10/2021 A #: [id number] Primary Physician: Jose Trimble V Case #: [id number] File Name: [id number] Catheterization Order Number: [id number] [facility] FinalReport [place], [place] Patient Name: Romeo PopNatalie Coe ID#:[id number] :1965 Procedure Date: June 10, 2021 Case [...] was designated as ASA Class II. The [facility] clinical frailty scale is 2:Well. [...] diagnostic procedure was Urgent. The indicationfor the energy systems laboratory director visit is worsening angina. Chest pain symptomassessment [...] units of heparin were administered. A total vb490dq of Omnipaque were opened, 38cc of Omnipaque were administered qpo62tg of Omnipaque were wasted. Radiation: Fluoro time [...] Glucose, POC 191 65 - 199 mg/dL [facility] Comment: Supplemental ranges: <140 mg/dL before meals <180 mg/dL all other times of the day Blood 06/10/2021 7:59 AM EDT 06/10/2021 7:59 AM EDT Supa Alegria MD POINT OF CARE TEST O RDERABLES [facility] [place] [address] * (ABNORMAL) BMP w/fasting Glucose (06/10/2021 3:44 AM EDT) Glucose Fasting 195(H) 65 - 99 mg/dL [facility] [...] of Diabetes Mellitus, Position Statement from the [place] Diabetes Association. ??Diabetes Care, Volume 33, Supplement 1, Aug 2009 Blood Urea Nitrogen 9(L) 10 - 20 mg/dL [facility] Creatinine 0.79(L) 0.80 - 1.50 mg/dL [facility] Sodium 134(L) 135 - 145 mmol/L [facility] Potassium 4.1 3.5 - 5.0 mmol/L [facility] Comment: Please note: ??Patients with WBC >100,000 may have falsely elevated Potassium levels. ??For accurate Potassium quantification in these patients send serum separator tube (gold top) for subsequent determinations. ??Contact the Clinical Chemistry Laboratory if there are any questions. Chloride 103 98 - 107 mmol/L [facility] Carbon Dioxide 18(L) 22 - 31 mmol/L [facility] Anion Gap 13 5 - 15 mmol/L [facility] Calcium 9.4 8.5 - 10.5 mg/dL [facility] Est Glomerular Filtration Rate 102 >=60 mL/min/1. 73 m?? [facility] Comment: This patient? s estimated [...] Lab Coni GROVER CHEMISTRY ORDERABLE S [facility] [place] [address] * Troponin (06/10/2021 3:44 AM EDT) Troponin-T [...] meets the diagnosis for a myocardial infarction (AR). Detection of a rise and/or fall of cTnT, with at least one value greater than the 99th percentile (> or = 0.01) and with at least one of the following ?? Symptoms of ischemia ?? New or presumed new significant TQ-lcrxyjw-V wave (ST-T) changes or new left bundle [...] additional sample may be indicated. Reference: Third Vanzant Definition of Myocardial Infarction. Journal of the [place] College of Cardiology 2012;60:1581-98 Blood Venous Draw / Unknown 06/10/2021 3:44 AM EDT 06/10/2021 4:06 AM EDT Narrative Resulting Agency Comment Spec In Lab Isaiah Hoyos MD CHEMISTRY ORDERABLE S Performing Organization Address [facility] Co de Phone Number [facility] [place] [address] * Green Tube HOLD (06/10/2021 3:44 AM EDT) Green Hold Sample in lab. [facility] Blood Venous Draw / Unknown 06/10/2021 3:44 AM EDT 06/10/2021 4:03 AM EDT Isaiah Hoyos MD CHEMISTRY ORDERABLE S Performing Organization Address [facility] Co de Phone Number [facility] [place] [address] * POCT Glucose (06/10/2021 3:44 AM EDT) Glucose, POC 191 65 - 199 mg/dL [facility] Comment: Supplemental ranges: <140 mg/dL before meals <180 mg/dL all other times of the day Blood 06/10/2021 3:44 AM EDT 06/10/2021 3:44 AM EDT Supa Alegria MD POINT OF CARE TEST O RDERABLES Performing Organization Address [facility] de Phone Number [facility] [place] [address] * Heparin (unfractionated) Level (06/10/2021 3:44 AM EDT) [facility] UF Heparin 0.38 IU/mL [facility] Comment: Guidelines [...] MD HEMATOLOGY ORDERABL ES Performing Organization Address [facility] Co de Phone Number [facility] [place] [address] * (ABNORMAL) Differential, Automated (06/10/2021 3:44 AM EDT) [facility] Neutrophil % 55.0 % [facility] Neutrophil Absolute 4.98 1.70 - 6.10 x10(3)/mc L [facility] Lymph % 29.1 % [facility] Lymphocytes Abs 2.6 0.9 - 3.2 x10(3)/ L [facility] Monocyte % 7.5 % [facility] Monocyte Abs 0.7 0.3 - 0.9 x10(3)/[facility] Eos % 5.9 % [facility] Eosinophils Abs 0.5(H) 0.0 - 0.4 x10(3)/[facility] Basophil % 1.1 % [facility] Baso Absolute 0.1 0.0 - 0.1 x10(3)/[facility] Immature Gran % 1.40 % [facility] Comment: Immature granulocytes(IG's)percentage and absolute count will include metamyelocytes, myelocytes, and promyelocytes. Blood smears from CBCs yielding IG's will be scanned manually for concordance. If this scan disagrees with the automated IG or if promyelocytes are noted, a manual differential will be performed. Immature Gran Absolute 0.13(H) 0.00 - 0.04 x10(3)/[facility] Blood 06/10/2021 3:44 AM EDT 06/10/2021 4:03 AM EDT Narrative Resulting Agency Comment Spec In Lab Isaiah Hoyos MD HEMATOLOGY ORDERABL ES [facility] [place] [address] * Hemogram (06/10/2021 3:44 AM EDT) White Blood Cell 9.0 4.0 - 9.5 x10(3)/[facility] Red Blood Cell 4.97 4.58 - 5.54 x10(6)/[facility] Hemoglobin 14.2 13.7 - 16.5 g/dL [facility] Hematocrit 42.8 40.5 - 48.5 % [facility] Mean Cell Volume 86.1 82.9 - 93.1 fL [facility] Mean Cell Hemoglobin 28.6 27.5 - 32.1 pg [facility] Mean Cell Hemoglobin Concentration 33.2 32.0 - 35.7 g/dL [facility] Platelet 251 145 - 357 x10(3)/[facility] RDW Standard Deviation 40.5 36.0 - 45.0 [facility] RDW coefficient of variation 13.0 11.4 - 13.8 % [facility] Mean Platelet Volume 10.5 7.6 - 12.9 [facility] NRBC% auto 0.0 % [facility] NRBC Absolute 0.000 0.000 - 0.000 x10(3)/[facility] Blood 06/10/2021 3:44 AM EDT 06/10/2021 4:03 AM EDT Narrative Resulting Agency Comment Spec In Lab Isaiah Hoyos MD HEMATOLOGY ORDERABL ES Performing Organization Address City/[facility]/ZIP Co de Phone Number [facility] [place] [address] * POCT Glucose (06/09/2021 11:57 PM EDT) Glucose, POC 147 65 - 199 mg/dL [facility] Comment: Supplemental ranges: <140 mg/dL before meals <180 mg/dL all other times of the day Blood 06/09/2021 11:5 7 PM EDT 06/09/2021 11:57 PM EDT Supa Alegria MD POINT OF CARE TEST O RDERABLES Performing Organization Address City/[facility]/ZIP Co de Phone Number [facility] [place] [address] * POCT Glucose (06/09/2021 8:06 PM EDT) Glucose, POC 193 65 - 199 mg/dL [facility] Comment: Supplemental ranges: <140 mg/dL before meals <180 mg/dL all other times of the day Blood 06/09/2021 8:06 PM EDT 06/09/2021 8:06 PM EDT Supa Alegria MD POINT OF CARE TEST O RDERABLES Performing Organization Address City/[facility]/ZIP Co de Phone Number [facility] [place] [address] * Troponin (06/09/2021 5:47 PM EDT) Troponin-T [...] meets the diagnosis for a myocardial infarction (AR). Detection of a rise and/or fall of cTnT, with at least one value greater than the 99th percentile (> or = 0.01) and with at least one of the following ?? Symptoms of ischemia ?? New or presumed new significant KV-cimqbfv-W wave (ST-T) changes or new left bundle [...] additional sample may be indicated. Reference: Third Vanzant Definition of Myocardial Infarction. Journal of the [place] [employer] 2012;60:1581-98 Blood 06/09/2021 5:47 PM EDT 06/09/2021 6:02 PM EDT Narrative Resulting Agency Comment Spec In Lab Isaiah Hoyos MD CHEMISTRY ORDERABLE S Performing Organization Address [facility]/ZIP Co de Phone Number [facility] [place] [address] * (ABNORMAL) POCT Glucose (06/09/2021 4:40 PM EDT) Glucose, POC 200(H) 65 - 199 mg/dL [facility] Comment: Supplemental ranges: <140 mg/dL before meals <180 mg/dL all other times of the day Blood 06/09/2021 4:40 PM EDT 06/09/2021 4:40 PM EDT Supa Alegria MD POINT OF CARE TEST O RDERAAIRAM Performing Organization Address [facility] Co de Phone Number [facility] [place] [address] * (ABNORMAL) POCT Glucose (06/09/2021 3:02 PM EDT) Glucose, POC 209(H) 65 - 199 mg/dL [facility] Comment: Supplemental ranges: <140 mg/dL before meals <180 mg/dL all other times of the day Blood 06/09/2021 3:02 PM EDT 06/09/2021 3:02 PM EDT Supa Alegria MD POINT OF CARE TEST O BOBERAAIRAM Performing Organization Address [facility] Co de Phone Number [facility] [place] [address] * ECHO COMPLETE W CONTRAST (06/09/2021 1:52 PM EDT) Anatomical Region Laterality Modality Other 06/09/2021 Narrative 06/09/2021 2:16 PM EDT Procedure: ?Transthoracic Echocardiogram Patient: ?LAQUITA DOHERTY A ? (Age): 1965(56y) Med Rec#: ? [id number] ?Sex: ?M ? Site Loc: ? [facility] ?Ht / Wt: ??177(cm)/114(kg) Pt. Loc: ?CCU ? BSA: ?2.29 Study Date: ?? 06/09/2021 ?Pt. Type: Inpatient Tape: ? Referring: ALTUJJARMOHAMMAD Reading: Zuleyka Hodgson ([id number]) Slip Box Changer: Ortiz Sandoval Diagnosis: *Chest pain, unspecified (R07.9) [...] Vmax ?0.67 ? m/sec ? MV deceleration [id number] ? msec ? MV A-wave Vmax ?0.48 [...] 06/09/2021 14:15:33 Images reviewed and interpretation verified [facility] Cardiac Ultrasound Laboratory Procedure Note Zuleyka Hodgson MD - 06/09/2021 Procedure: Transthoracic Echocardiogram Patient: LAQUITA Pop (Age): 1965(56y) Med Rec#: [id number] Sex: M Site Loc: [facility] Ht / Wt: 177(cm)/114(kg) Pt. Loc: [facility] BSA: 2.29 Study Date: 06/09/2021 Pt. Type: Inpatient Tape: Referring: ALTUJJARMOHAMMAD Reading: Zuleyka Hodgson ([id number]) Slip Box Changer: Ortiz Sandoval Diagnosis: *Chest pain, unspecified (R07.9) [...] MV E-wave Vmax 0.67 m/sec MV deceleration [id number] msec MV A-wave Vmax 0.48 m/sec MV [...] 06/09/2021 14:15:33 Images reviewed and interpretation verified [facility] Cardiac Ultrasound Laboratory Isaiah Hoyos MD ECHO ORDERABLES * (ABNORMAL) POCT Glucose (06/09/2021 11:49 AM EDT) Glucose, POC 258(H) 65 - 199 mg/dL [facility] Comment: Supplemental ranges: <140 mg/dL before meals <180 mg/dL all other times of the day Blood 06/09/2021 11:4 9 AM EDT 06/09/2021 11:49 AM EDT Supa Alegria MD POINT OF CARE TEST O RDERABLES [facility] [place] [address] * Troponin (06/09/2021 11:30 AM EDT) [facility] Troponin-T <0.01 0.00 - 0.00 ng/mL [facility] Comment: The 99th percentile for Troponin T is less than 0.01 ng/mL, any detectable cTnT concentration using this assay should be considered elevated. According to the third universal definition of myocardial infarction the following criteria with a clinical presentation consistent with acute myocardial ischemia meets the diagnosis for a myocardial infarction (AR). Detection of a rise and/or fall of cTnT, with at least one value greater than the 99th percentile (> or = 0.01) and with at least one of the following ?? Symptoms of ischemia ?? New or presumed new significant US-vgnqbbk-M wave (ST-T) changes or new left bundle [...] additional sample may be indicated. Reference: Third Vanzant Definition of Myocardial Infarction. Journal of the [place] [employer] 2012;60:1581-98 Blood 06/09/2021 11:3 0 AM EDT 06/09/2021 11:44 AM EDT Narrative Resulting Agency Comment Spec In Lab Isaiah Hoyos MD CHEMISTRY ORDERABLE S Performing Organization Address [facility] de Phone Number [facility] [place] [address] * Heparin (unfractionated) Level (06/09/2021 11:30 AM EDT) UF Heparin 0.32 IU/mL [facility] Comment: Guidelines [...] MD HEMATOLOGY ORDERABLE S Performing Organization Address [facility] de Phone Number [facility] [place] [address] * (ABNORMAL) POCT Glucose (06/09/2021 8:03 AM EDT) Glucose, POC 233(H) 65 - 199 mg/dL [facility] Comment: Supplemental ranges: <140 mg/dL before meals <180 mg/dL all other times of the day Blood 06/09/2021 8:03 AM EDT 06/09/2021 8:03 AM EDT Supa Alegria MD POINT OF CARE TEST O RDERABLES [facility] [place] [address] * (ABNORMAL) Differential, Automated (06/09/2021 5:50 AM EDT) Neutrophil % 56.8 % [facility] Neutrophil Absolute 4.64 1.70 - 6.10 x10(3)/ L [facility] Lymph % 27.0 % [facility] Lymphocytes Abs 2.2 0.9 - 3.2 x10(3)/ L [facility] Monocyte % 8.6 % [facility] Monocyte Abs 0.7 0.3 - 0.9 x10(3)/ L [facility] Eos % 5.6 % [facility] Eosinophils Abs 0.5(H) 0.0 - 0.4 x10(3)/ L [facility] Basophil % 0.9 % [facility] Baso Absolute 0.1 0.0 - 0.1 x10(3)/ L [facility] Immature Gran % 1.10 % [facility] Comment: Immature granulocytes(IG's)percentage and absolute count will include metamyelocytes, myelocytes, and promyelocytes. Blood smears from CBCs yielding IG's will be scanned manually for concordance. If this scan disagrees with the automated IG or if promyelocytes are noted, a manual differential will be performed. Immature Gran Absolute 0.09(H) 0.00 - 0.04 x10(3)/ L [facility] Blood 06/09/2021 5:50 AM EDT 06/09/2021 6:06 AM EDT Narrative Resulting Agency Comment Spec In Lab Isaiah Hoyos MD HEMATOLOGY ORDERABL ES Performing Organization Address City/[facility]/ZIP Co de Phone Number [facility] [place] [address] * Hemogram (06/09/2021 5:50 AM EDT) White Blood Cell 8.2 4.0 - 9.5 x10(3)/[facility] LABORATORY Red Blood Cell 4.87 4.58 - 5.54 x10(6)/[facility]ORY Hemoglobin 14.1 13.7 - 16.5 g/dL [facility] Hematocrit 42.0 40.5 - 48.5 % [facility] Mean Cell Volume 86.2 82.9 - 93.1 [facility] Mean Cell Hemoglobin 29.0 27.5 - 32.1 [facility] Mean Cell Hemoglobin Concentration 33.6 32.0 - 35.7 g/dL [facility] Platelet 240 145 - 357 x10(3)/[facility] LABORATORY RDW Standard Deviation 40.7 36.0 - 45.0 [facility] RDW coefficient of variation 12.9 11.4 - 13.8 % [facility] Mean Platelet Volume 10.9 7.6 - 12.9 [facility] NRBC% auto 0.0 % [facility] NRBC Absolute 0.000 0.000 - 0.000 x10(3)/[facility] LABORATORY Blood 06/09/2021 5:50 AM EDT 06/09/2021 6:06 AM EDT Narrative Resulting Agency Comment Spec In Lab Isaiah Hoyos MD HEMATOLOGY ORDERABL ES Performing Organization Address City/[facility]/ZIP Co de Phone Number [facility] [place] [address] * Troponin (06/09/2021 5:50 AM EDT) Pathologist [facility] Troponin-T <0.01 0.00 - 0.00 ng/mL [facility] Comment: The 99th percentile for Troponin T is less than 0.01 ng/mL, any detectable cTnT concentration using this assay should be considered elevated. According to the third universal definition of myocardial infarction the following criteria with a clinical presentation consistent with acute myocardial ischemia meets the diagnosis for a myocardial infarction (AR). Detection of a rise and/or fall of cTnT, with at least one value greater than the 99th percentile (> or = 0.01) and with at least one of the following ?? Symptoms of ischemia ?? New or presumed new significant HZ-uswelho-Z wave (ST-T) changes or new left bundle [...] additional sample may be indicated. Reference: Third Vanzant Definition of Myocardial Infarction. Journal of the [place] [employer] 2012;60:1581-98 Blood 06/09/2021 5:50 AM EDT 06/09/2021 6:05 AM EDT Narrative Resulting Agency Comment Spec In Lab Isaiah Hoyos MD CHEMISTRY ORDERABLE S [facility] [place] [address] * Heparin (unfractionated) Level (06/09/2021 5:50 AM EDT) Pathologist [facility] UF Heparin 0.31 IU/mL [facility] Comment: Guidelines [...] MD HEMATOLOGY ORDERABL ES Performing Organization Address [facility] de Phone Number [facility] [place] [address] * Blood culture (06/09/2021 5:50 AM EDT) Blood Culture No growth at 5 days. [facility] Blood ANTECUBITAL REGION STRUCTURE / Unknown 06/09/2021 5:50 AM EDT 06/09/2021 10:08 AM EDT Comment:#1 Narrative Resulting Agency Comment Spec In Lab Isaiah Hoyos MD MICROBIOLOGY - BLOO D ORDERABLES Performing Organization Address [facility] de Phone Number [facility] [place] [address] * Lipid Panel (Reflex Direct LDL) (06/09/2021 5:50 AM EDT) Cholesterol, Total 207 mg/dL [facility] Comment: Lower Risk: <200 mg/dL Average Risk: 200-239 mg/dL Higher Risk: >wo=556 mg/dL Triglyceride 235 mg/dL [facility] Comment: Average Risk/Lower Risk: <150 mg/dL Borderline High Risk: 150-199 mg/dL High Risk: 200-499 mg/dL Very High Risk: >gu=559 mg/dL HDL Cholesterol 29 mg/dL [facility] Comment: Males: ?? Higher Risk: <40 mg/dL Females: ?? Higher Risk: <50 mg/dL LDL Cholesterol 131 mg/dL [facility] Comment: Lowest Risk: <100 mg/dL Lower Risk: 100-129 mg/dL Borderline High Risk: 130-159 mg/dL High Risk: 160-189 mg/dL Very High Risk: >kb=109 mg/dL Cholesterol/HDL Ratio 7.1 ratio [facility] Lipid Interpretation See Note [facility] Comment: Lipid management should be guided by a patient? s ASCVD risk, goals and preferences. ACC/AHA Guidelines recommend high intensity statin if clinical ASCVD or LDL greater than or equal to 190 mg/dL. http://Imsys.com/DIV-WWN-Eatzqnpxp Adults aged 40-75 with LDL 70-189 mg/dL should have their 10 year ASCVD risk estimated with the ACC/AHA ASCVD risk calender let off helper http://tools.acc.org/XTOYS-Oadg-Oigguxkqg/ Statin should be discussed if risk greater [...] Lab Isaiah Hoyos MD CHEMISTRY ORDERABLE S [facility] [place] [address] * COVID-19 PCR (06/09/2021 5:45 AM EDT) SARS-CoV-2 RNA (Rapid) Not Detected Not Detected [facility] Comment: This result should be [...] using the Simplexa COVID-19 Direct Assay by Ever[employer] as authorized by the FDA issued Emergency [...] Department of Pathology and Laboratory Medicine at [facility], certified under the Clinical Laboratory Improvement [...] fact sheets at the following FDA website: https://www.fda.gov/medical-devices/qvrbmdwpcij-jsuayry-3609-dnxqt-50-pzmpgufmp- use-a cqduabfpcwsjz-zbcmkcz-ksmatrb/mcpei-hugfdmnjucd-aqnj SARS-CoV-2 Source [employer] Swab [facility] Nasopharyngeal Swab 06/09/20 5:45 AM EDT 06/10/2021 6:15 AM EDT Comment:Symptoms->Surveillan ce Narrative Resulting Agency Comment Spec In Lab Isaaih Hoyos MD MICROBIOLOGY - GENE RAL ORDERABLES Performing Organization Address [facility]/ZIP Co de Phone Number [facility] [place] [address] * (ABNORMAL) POCT Glucose (06/09/2021 4:20 AM EDT) Glucose, POC 224(H) 65 - 199 mg/dL [facility] Comment: Supplemental ranges: <140 mg/dL before meals <180 mg/dL all other times of the day Blood 06/09/2021 4:20 AM EDT 06/09/2021 4:20 AM EDT Supa Alegria MD POINT OF CARE TEST O RDERABLES Performing Organization Address [facility] Co de Phone Number [facility] [place] [address] * (ABNORMAL) POCT Glucose (06/09/2021 12:35 AM EDT) Glucose, POC 346(H) 65 - 199 mg/dL [facility] Comment: Supplemental ranges: <140 mg/dL before meals <180 mg/dL all other times of the day Blood 06/09/2021 12:3 5 AM EDT 06/09/2021 12:35 AM EDT Zuleyka Hodgson MD POINT OF CARE T EST ORDERABLES Performing Organization Address City/[facility]/ZIP Co de Phone Number [facility] [place] [place] [address] * Heparin (unfractionated) Level (2021 10:41 PM EDT) [facility] UF Heparin 0.26 IU/mL [facility] Comment: Guidelines [...] Lab Isaiah Hoyos MD HEMATOLOGY ORDERABL ES [facility] [place] [address] * EKG 12 Lead (2021 8:46 PM EDT) [facility] Ventricular rate 69 BPM MUSE SYSTEM Atrial Rate 69 BPM MUSE SYSTEM P-R Interval 148 ms MUSE SYSTEM QRS Duration 84 ms MUSE SYSTEM Q-T Interval 384 ms MUSE SYSTEM QTC Calculated (Bezet) 411 ms MUSE SYSTEM Calculated P [place] 39 degrees MUSE SYSTEM Calculated R [place] 14 degrees MUSE SYSTEM Calculated T [place] 21 degrees MUSE SYSTEM INTERPRETATION Normal sinus [...] Blood Culture No growth at 5 days. [facility] Blood 2021 8:26 PM EDT 2021 8:57 PM EDT Narrative Resulting Agency Comment Spec In Lab Isaiah Hoyos MD MICROBIOLOGY - BLOO D ORDERABLES Performing Organization Address City/[facility] Co de Phone Number [facility] [place] [address] * Troponin (2021 7:31 PM EDT) Troponin-T [...] meets the diagnosis for a myocardial infarction (AR). Detection of a rise and/or fall of cTnT, with at least one value greater than the 99th percentile (> or = 0.01) and with at least one of the following ?? Symptoms of ischemia ?? New or presumed new significant HL-gkwhkad-Q wave (ST-T) changes or new left bundle [...] additional sample may be indicated. Reference: Third Vanzant Definition of Myocardial Infarction. Journal of the [place] [employer] 2012;60:1581-98 Blood 2021 7:31 PM EDT 2021 7:37 PM EDT Narrative Resulting Agency Comment Spec In Lab Isaiah Hoyos MD CHEMISTRY ORDERABLE S [facility] [place] [address] * (ABNORMAL) Differential, Automated (2021 7:31 PM EDT) Neutrophil % 53.6 % [facility] Neutrophil Absolute 4.36 1.70 - 6.10 x10(3)/mc L [facility] Lymph % 28.5 % [facility] Lymphocytes Abs 2.3 0.9 - 3.2 x10(3)/mc L [facility] Monocyte % 10.8 % [facility] Monocyte Abs 0.9 0.3 - 0.9 x10(3)/mc L [facility] Eos % 5.4 % [facility] Eosinophils Abs 0.4 0.0 - 0.4 x10(3)/mc L [facility] Basophil % 1.0 % [facility] Baso Absolute 0.1 0.0 - 0.1 x10(3)/mc L [facility] Immature Gran % 0.70 % [facility] Comment: Immature granulocytes(IG's)percentage and absolute count will include metamyelocytes, myelocytes, and promyelocytes. Blood smears from CBCs yielding IG's will be scanned manually for concordance. If this scan disagrees with the automated IG or if promyelocytes are noted, a manual differential will be performed. Immature Gran Absolute 0.06(H) 0.00 - 0.04 x10(3)/mc L [facility] Blood 2021 7:31 PM EDT 2021 7:37 PM EDT Narrative Resulting Agency Comment Spec In Lab Isaiah Hoyos MD HEMATOLOGY ORDERABL ES Performing Organization Address City/[facility]/ZIP Co de Phone Number [facility] [place] [address] * (ABNORMAL) Hemogram (2021 7:31 PM EDT) White Blood Cell 8.1 4.0 - 9.5 x10(3)/mc L [facility] Red Blood Cell 4.65 4.58 - 5.54 x10(6)/mc L [facility] Hemoglobin 13.5(L) 13.7 - 16.5 g/dL [facility] Hematocrit 39.4(L) 40.5 - 48.5 % [facility] Mean Cell Volume 84.7 82.9 - 93.1 fL [facility] Mean Cell Hemoglobin 29.0 27.5 - 32.1 pg [facility] Mean Cell Hemoglobin Concentration 34.3 32.0 - 35.7 g/dL [facility] Platelet 219 145 - 357 x10(3)/ L [facility] RDW Standard Deviation 39.9 36.0 - 45.0 [facility] RDW coefficient of variation 13.1 11.4 - 13.8 % [facility] Mean Platelet Volume 10.5 7.6 - 12.9 [facility] NRBC% auto 0.0 % [facility] NRBC Absolute 0.000 0.000 - 0.000 x10(3)/ L [facility] Blood 2021 7:31 PM EDT 2021 7:37 PM EDT Narrative Resulting Agency Comment Spec In Lab Isaiah Hoyos MD HEMATOLOGY ORDERABL ES [facility] [place] [address] * (ABNORMAL) Basic Metabolic Panel (non-fasting) (2021 7:31 PM EDT) Glucose 244(H) 65 - 199 mg/dL [facility] Comment:Diabetes: >=200 mg/d L plus symptoms Blood Urea Nitrogen 12 10 - 20 mg/dL [facility] Creatinine 0.73(L) 0.80 - 1.50 mg/dL [facility] Sodium 133(L) 135 - 145 mmol/L [facility] Potassium 4.0 3.5 - 5.0 mmol/L [facility] Comment: Please note: ??Patients with WBC >100,000 may have falsely elevated Potassium levels. ??For accurate Potassium quantification in these patients send serum separator tube (gold top) for subsequent determinations. ??Contact the Clinical Chemistry Laboratory if there are any questions. Chloride 100 98 - 107 mmol/L [facility] Carbon Dioxide 22 22 - 31 mmol/L [facility] Anion Gap 11 5 - 15 mmol/L [facility] Calcium 9.3 8.5 - 10.5 mg/dL [facility] Est Glomerular Filtration Rate 105 >=60 mL/min/1. 73 m?? [facility] Comment: This patient? s estimated [...] Lab Isaiah Hoyos MD CHEMISTRY ORDERABLE S [facility] [place] [address] documented in this encounter Visit Diagnoses Diagnosis Unstable angina- Primary Intermediate coronary syndrome Chest pain, unspecified type Smoker Tobacco use disorder CAD (coronary artery disease) Coronary atherosclerosis of unspecified type of vessel, [place] or graft Chest pain Chest pain, unspecified [...] 0538 (Given - Provider: Emily Olmedo RN)1041 ([facility] Hold - Provider: Admin Adt - Reason: Transfer to a Procedural area)1224 ([facility] Unhold - Provider: Admin Adt) losartan (Cozaar) tablet 12.5 mg 12.5 mg, Oral, DAILY, First dose on 06/09/21 at 0900, Until Discontinued, Routine 0837 (Given - Provider: Fabienne Morelos RN) 0932 (Given - Provider: Fabienne Morelos RN)1041 ([facility] Hold - Provider: Admin Adt - Reason: Transfer to a Procedural area)1224 ([facility] Unhold - Provider: Admin Adt) metoprolol succinate XL (Toprol-XL) tablet 100 mg 100 mg, Oral, DAILY, First dose on 06/09/21 at 0900, Until Discontinued, DO NOT CRUSH OR OPEN, Routine 0837 (Given - Provider: Fabienne Morelos RN) 0932 (Given - Provider: Fabienne Morelos RN)1041 ([facility] Hold - Provider: Admin Adt - Reason: Transfer to a Procedural area)1224 ([facility] Unhold - Provider: Admin Adt) ondansetron (pf) [...] - Reason: Transfer to a Procedural area)1224 ([facility] Unhold - Provider: Admin Adt) piperacillin-tazobactam (Zosyn) [...] RN)0938 (Stopped - Provider: Fabienne Morelos RN)1041 ([facility] Hold - Provider: Admin Adt - Reason: Transfer to a Procedural area)1224 ([facility] Unhold - Provider: Admin Adt)1238 (New Bag - Provider: Fabienne Morelos RN)1638 (Stopped - Provider: Fabienne Morelos RN) pramipexole (Mirapex) tablet 0.5 mg 0.5 mg, Oral, NIGHTLY, First dose on 06/08/21 at 2115, Until Discontinued, Routine 214 (Given - Provider: Arturo Morris RN) 2023 (Given - Provider: Emily Olmedo RN) 1041 ([facility] Hold - Provider: Admin Adt - Reason: Transfer to a Procedural area)1224 ([facility] Unhold - Provider: Admin Adt) ranolazine ER [...] - Reason: Transfer to a Procedural area)1224 ([facility] Unhold - Provider: Admin Adt)1633 (Given - [...] 0946 (Given - Provider: Fabienne Morelos RN)104 ([facility] Hold - Provider: Admin Adt - Reason: Transfer to a Procedural area)1224 ([facility] [facility] Unhold - Provider: Admin Adt) topiramate (Topamax) tablet 50 mg 50 mg, Oral, NIGHTLY, First dose on 06/08/21 at 2115, Until Discontinued, Routine 214 (Given - Provider: Arturo Morris RN) 202 (Given - Provider: Emily Olmedo RN) 1041 ([facility] Hold - Provider: Admin Adt - [...] - Reason: Transfer to a Procedural area)1224 ([facility] Unhold - Provider: Admin Adt) Continuous Medication [...] Jose Damon MD - Comment: Contrast in Calender Let Off Helper) lidocaine (Xylocaine) 1% (10 mg/mL) injection 3 mg 3 mg (0.3 mL), Subcutaneous, ONCE PRN, 1 dose, Starting on 06/08/21 at 1909, Until Thu06/10/21 at 2028, for discomfort with PIV insertion, Routine 1041 ([facility] Hold - Pro vider: Admin Adt - Reason: Transfer to a Procedural area)1224 ([facility] Unhold - Provider: Admin Adt) lidocaine (Xylocaine) [...] - Reason: Transfer to a Procedural area)1224 ([facility] Unhold - Provider: Admin Adt) nitroGLYcerin 100 [...] Prov ider: Naye Song RN - Comment: Calender Let Off Helper Flush Line) verapamiL (Isoptin) (2.5 mg/mL) injection [...] Routine documented in this encounter Care Teams Surveyor Relationship Specialty Start Date End Date Coni Lim MD [address] [place] [address] PCP - General 07/16/10 documented as of this encounter
--- OUTSIDE RECORDS SUMMARY | 2024-08-19 14:52 | XMS_ITS | Encounter Summary ---
[place] [address] Care Team Providers Care Exterior Designer Name Role Phone Coni Lim MD Primary Care Provider [phone] Reason for Visit * Auth/Cert Specialty Diagnoses / Procedures Referred By Ruby garvin Referred To Contact Diagnoses Unstable angina Chest pain Procedures EMERGENCY IPI Referral ID Status Reason Start Date Expiration Date Visits Re quested Visits Authorized [id number] 1 1 Encounter Details Date Type Department Care Team (Latest Contact Info) Description 06/09/2021 9:25 AM EDT - 06/09/2021 11:59 PM EDT Hospital Encounter Non-[place] [id number] Discharge Disposition: Home Social History Tobacco Use [...] mLs documented in this encounter Care Teams Exterior Designer Relationship Specialty Start Date End Date Coni Lim MD [address] [place] [address] PCP - General 07/16/10 documented as of this encounter
--- OUTSIDE RECORDS SUMMARY | 2024-08-19 14:52 | XMS_ITS | Encounter Summary ---
Author Organization [facility]ly [facility] [place] [address] Care Team Providers Care Upholstery Technician Name Role Phone Coni Lim MD Primary Care Provider [phone] Encounter Details Date Type Department Care Team (Late st Contact Info) Description 05/24/2020 [place] [address] Keeley Paredes MD Social History Tobacco Use [...] filedocumented in this encounter Care Teams Upholstery Technician Relationship Specialty Start Date End Date Coni Lim MD [address] [place] [address] PCP - General 07/16/10 documented as of this encounter
--- OUTSIDE RECORDS SUMMARY | 2024-08-19 14:52 | XMS_ITS | Encounter Summary ---
Author Organization [facility] Address [facility] [place] [address] Care Team Providers Care Fence Installer Foreman Name Role Phone Coni Lmi MD Primary Care Provider [phone] Reason for Visit * Auth/Cert Specialty Diagnoses / Procedures Referred By Ruby garvin Referred To Contact Diagnoses Unstable angina Chest pain Procedures EMERGENCY IPI Referral ID Status Reason Start Date Expiration Date Visits Re quested Visits Authorized [id number] 1 1 Encounter Details Date Type Department Care Team (Late st Contact Info) Description 06/10/2021 9:00 AM EDT - 06/10/2021 10:00 AM EDT [place] [id number] Jose Trimble MD [facility] [place] [address] CARDIAC CATHETERIZATION Social History Tobacco Use Types [...] Romeo Coelho Patient Age: 56 y.o. Language: American Race: White Ethnicity: Not nor Admit date: 2021 Discharge date and time: 06/10/2021 5:40 PM Attending Physician: Supa Alegria MD Discharge Physician: Supa Alegria MD Follow-up Recommendations for Providers: Romeo Coelho is a 56 year old male admitted for chest pain concerning for unstable angina. 1. ASCVD / Microvascular angina: [facility] 06/10/21 without obstructive CAD and with [...] Escobar APRN Sarah Hansen, PA-C Cardiovascular Medicine [phone] Discharge Diagnoses (Hospital Problems) and Secondary Diagnoses (Chronic Problems): Active Hospital Problems Diagnosis ??? Unstable angina ??? Chest pain ??? Smoker ??? CAD (coronary artery disease) ??? Dyslipidemia ??? HTN (hypertension) ??? DM (diabetes mellitus) Resolved Hospital Problems No resolved problems to display. Active Non-Hospital Problems Diagnosis ??? Hx-TIA (transient ischemic attack) ??? GERD (gastroesophageal reflux disease) ??? Conjunctival lesion Operations/Major Procedures: [facility] 06/10/21 Hemodynamics: Left Heart Pressures Resting: [...] 2011, LAD stent in 2012, RCA stent [id number]. His most recent coronary angiogram (2019) showed [...] since 2011 and last JACINDA to RCA [id number]. Last [facility] 2018 with residual ~40% LAD and [...] SOB prior to discharge. Follow up with pega developer, Dr. Gutierrez, was arranged. ?? Right??groin cellulitis, [...] CTA chest was made. ?? Diabetes mellitus, eel-lygwfgy-wqdbeqycn, uncontrolled A1c of 9.4%. Home metformin held for cath. Additional coverage with sliding scale and meal associated insulin. Hold metformin for 48 hours after contrast exposure. Diabetes management team consulted.Recommendations to continue metformin 1000mg BID and further management per PCP. Could consider SGLT2i. ?? HTN BP trend 12 hours prior to discharge were BP: (102-134)/(65-81) . He was continued on home nsagjtpw69.5mg daily, metoprolol succinate 100mg daily and Imdur [...] cultures at [facility] and [facility]. Discharge Conditions/Prognosis: Alert and oriented x 3, ambulatory-independent. Ambulated without chest pain or SOB prior to discharge. Discharge to: Home. Updated Allergies/ADRs: Allergies Allergen Reactions ??? Thallium-201 Severe cardiac event ??? Lisinopril Other (See Comments) cough ??? Paper Tape [Adhesive Tape] Rash Immunizations Given this Hospitalization: Immunization History Administered Date(s) Administered ??? Influenza PF, Split 07/30/2013 ??? Influenza Vaccine (Novel) [id number], Injectable 05/24/2009 ??? Influenza Vaccine w/Preservative, Split [...] of 8AM-5PM please call the Cardiology Clinic [phone] to speak with a nurse. All other hours please call the Hospital Apparel Rental Clerk [phone] and ask to speak to the maxillofacial prosthodontist on-call. Return to work: One week Driving: [...] Time PCP COLEEN Wen [address] [place] [address] Jun 20 10:00am Shift Superintendent Dr. Gutierrez [facility] Cardiology [phone] ThursdayJul 23 11:40am Discharge References/Attachments Angina (American) Discussed with MD Coni Escobar PA-C Pager #[phone] 06/10/2021 documented in this encounter Discharge Instructions [...] of 8AM-5PM please call the Cardiology Clinic [phone] to speak with a nurse. All other hours please call the Hospital Apparel Rental Clerk [phone] and ask to speak to the maxillofacial prosthodontist on-call. Return to work: One week Driving: [...] Time PCP COLEEN Wen [address] [place] [address] Jun 20 10:00am Shift Superintendent Dr. Gutierrez [facility] Cardiology [phone] ThursdayJul 23 11:40am * Patient Instructions* Coni Lew PA - 06/10/2021 3:07 PM EDT * Attachments The following attachments cannot be sent through Care Everywhere. * Angina (American) documented in this encounter Medications at Time [...] MOUTH EVERY 4 TO 6 HOURS 05/18/2020 Compact Particle Accelerationuch Verio test strips Strip USE ONE STRIP [...] Transport initiated/not confirmed: Spoke with NOELLE from [facility] who initiated a ride with their scheduling department/dispatch to pick patient up at discharge 06/10/21 from the MAIN entrance at ~18:00 en route to HOME UPDATE 16:06 Discharge Transportation confirmed: Spoke with ELMIRA from [facility] who confirmed a jinrikisha driver provided by transportation coordinatorULISES will arrive to pick patient up at discharge 06/10/21 from the MAIN entrance at 18:00 en route to HOME. Bedside nurse notified via eDH chat. [facility] PHONE: [phone] * Supa Alegria MD - 06/10/2021 8:04 AM EDT Images from the original note were not included. Inpatient Cardiology Progress Note Patient Name: Romeo Coelho Service: ACCOUNTS EXECUTIVE / PA Responsible Attending: Supa Alegria MD [...] since 2011 and last JACINDA to RCA [id number]. Last [facility] 2019 with residual ~40% LAD [...] chest at this time ?? Diabetes mellitus, aqz-rwehing-njkmflrai, uncontrolled A1c of 9.4% Hold home metformin [...] Discussed with MD Coni Escobar PA-C Pager #[phone] 06/10/2021 Cardiology Attending Note I have seen and examined the patient. I agree with the findings above. Of note, he is feeling well today. His groin site shows no evidence of fluid collection. Blood cultures show no growth. We will proceed with coronary angiography and possible PCI Supa Alegria MD [facility] Total time spent on review of [...] Progress Note Patient Name: Romeo Coelho Service: ACCOUNTS EXECUTIVE / PA Responsible Attending: Supa Alegria MD Reason for continued hospitalization: Evaluation and management of unstable angina- cath Right groin cellulitis-IV abx Medication adjustment Active Problems: Active Hospital Problems Diagnosis ??? Unstable angina ??? Chest pain ??? Smoker ??? CAD (coronary artery disease) -Coronary Angio 07/29/2013: 65% (FFR 0.74) mid LAD lesion s/p PCI with 3.5 X 18 mm JACINDA - [facility] 2009 post abnormal nuc stress +IW, [...] CTA at this time ?? Diabetes mellitus, oan-vzdvklh-ldnikmbgs Poor control with A1c of 9.4 Carb [...] ?Routine Diet: Daily Healthy Menu Choices/Cardiac diet ([facility]-Diet) CHO counting level 2 DVT Prophylaxis: already [...] proceed tomorrow on antibiotics. Supa Alegria MD [facility] Total time spent on review of [...] PCP: Coni Lim MD PCP phone number: [phone] Date of Admission: 2021 ( Hospital Day 0 days ) Attending:Zuleyka Hodgson MD Patient Active Problem List Diagnosis ??? ','Unstable angina ??? Chest pain ??? Smoker ??? CAD (coronary artery disease) Overview Note: -Coronary Angio 07/29/2013: 65% (FFR 0.74) mid LAD lesion s/p PCI with 3.5 X 18 mm JACINDA - [facility] 2009 post abnormal nuc stress +IW, [...] Myocardial Infarction Father [address] [place], CABG ??? Heart Disease Father ??? Diabetes [...] Lives with and daughter at home in [place], [place]. He is disabled now. He used [...] in the last 7068 hours. Invalid input(s): RCYKQGREKKP2X No results for input(s): POCGLU in the last 168 hours. Heme No results for input(s): LDH, HAPTOGLOBIN, URICACID in the last 168 hours. ABG (Arterial Blood Gas) No results found for: PHART, PO2ART, LFB9IHL, JXT0QTS Microbiology: Microbiology Results (Last 30 days) No [...] (porcine) AND heparin (porcine) infusion Recent diagnostics: [facility] (2019): Left Main The left main [...] Obtain Echo - Serial cardiac enzymes - nurse monitoring - Cardiac cath in a.m. - [...] infection. No hypoxia or tachycardia #Diabetes mellitus, qwo-qbjcmlq-hijnnxtxx, poor control with A1c of 9.4 -Diabetic [...] #Routine Diet: Daily Healthy Menu Choices/Cardiac diet ([facility]-Diet) 75/75/90 CHO counting level 3 DVT Prophylaxis: already on heparin drip Code Status: Attempt Cardiopulmonary Resuscitation - Inpatient Dispo: Pending clinical course Isaiah Hoyos MD Pager #[phone] 06/08/21 8:56 PM documented in this encounter [...] cath without complications. Coni Lew PA-C Pager #[phone] 06/10/2021 * Initial Assessments - Ruthie Macias RN - 06/10/2021 3:39 PM EDT Office of Care Management Initial Assessment Ruthie Macias RN reviewed record and discussed patient with Care Team. Source of Information: Team, bedside nurse, medical record, and Patient Introduced self/reviewed role; services accepted. Reason for Hospitalization: unstable angina Last COVID test: Lab Results Component Value Date [id number] Not Detected 06/09/2021 Past medical History: Past [...] Dasia would be surrogate decision maker per [place] surrogatedecision making law. (Only good for 180 days) Any patient receiving care at [facility] must abide by [place] law. The hierarchy for surrogate decision making [...] cane - straight Home Address confirmed as: [address] [place] [id number] Social & Family Supports: All names listed below confirmed with patient as current and correct Extended Emergency Contact Information Primary Emergency Contact: Dasia Coelho Address: [address] [place] [id number] [place] [address] of [facility] Mobile Relation: Spouse Current Care Provided [...] MEDICAID [place] Prescription Coverage: Yes Preferred Pharmacy: [id number] - [facility], [place] - [address] [facility] [address] [place] [id number] [employer] Status: Patient is a : No Primary Care Provider: Coni Lim MD [phone] Patient/Caregiver Goals of Treatment: dc to home [...] ambulation, driving. He drove his car to [facility] and then required a BLS to transport here to [facility]. He will require assistance in finding A ride to home when he is dced. Pt has supports in place to accessthe necessary care and or follow up after dishcharge and there are no RN CM or SACK CLEANER needs that are identified at this time Plan: dc to home A member of the Care Management team will continue to monitor progress, follow for continuity of care and assist with transition of care planning. Ruthie Macias RN CM [phone] Pager [phone] * Consult Note - Elena Zaragoza APRN [...] management and to provide a review of buttermaker helper diabetes care. Diabetes History: Romeo Coelho has had diabetes for about 8 years. He was diagnosed during routine blood testing by his PCP. Denies having any symptoms at time of diagnosis. He takes metformin only, hasn't discussed additional medications with PCP previously as historically A1c has been 6-7. Lives in [facility] with Dasia. States the last few [...] Myocardial Infarction Father 46 [place], CABG ??? Heart Disease Father ??? Diabetes [...] 10 gm carb ratio for each meal) [facility] diabetes care: Medications - Outpatient treatment regimen recommendations pending based on the hospital course. Monitoring - continue BG tid ac & hs Diet - low fat/low carb diet Exercise - weight-bearing exercise 30 min/day, as tolerated Thank you for allowing us to provide care for your patient Elena Nik [facility] Endocr[facility] Pager [phone] 70 minutes of this 80 minute visit was spent with the patient in counseling on diabetes and treatment plan, reviewing all glucose and insulin data as well as relevant laboratory results with the patient, and coordination of care on the inpatient unit * Brief Op Note - Jose Trimble MD - 06/10/2021 11:37 AM EDT Brief Operative Note Patient Name: Romeo Coelho : [id number] MR#: [id number] Case Date: 06/10/2021 Shift Superintendent: * Jose Trimble MD - Primary * Syed Solorio MD - Fellow Preoperative diagnosis: nstemi Postoperative diagnosis:NSTEMI with stable coronary anatomy Preliminary Cardiac Catheterization Procedure Note: Procedure(s) performed: Coronary Angiography, Left Heart Cath Baseline Frailty Assessment: Definitions from [place] Study of Health and Aging Clinical Frailty [...] Full report to follow. JOSE TRIMBLE MD certified executive chef Pager [phone] * Plan of Care - Fabienne Morelos RN - 06/09/2021 2:57 PM EDT OUTCOME EVALUATION NOTE: OUTCOME SUMMARY: A/O x4. VSS on RA. NSR on tele. Heparin gtt maintained per protocol.IV zosyn and vanc given per protocol. (see MAR). BG elevated, MD notified, insulin scale adjusted. PLAN MOVING FORWARD: BC results analytical laboratory technician D/c planning INDIVIDUALIZED FALL PREVENTION [...] SOB reported, remains on room air overnight. [place] very nauseous after he went to the [...] further details. Isaiah Hoyos MD 2021 Pager [phone] documented in this encounter Plan of Treatment [...] 06/09/2021 5:50 AM EDT RAPID COVID-19 PCR ([facility]) Routine 06/09/2021 5:45 AM EDT POCT [...] * POCT Glucose (06/10/2021 4:20 PM EDT) [facility] Signature Glucose, POC 177 65 - 199 mg/dL [facility] Comment: Supplemental ranges: <140 mg/dL before meals <180 mg/dL all other times of the day Blood 06/10/2021 4:20 PM EDT 06/10/2021 4:20 PM EDT Supa Alegria MD POINT OF CARE TEST O RDERABLES [facility] [place] [address] * Troponin (06/10/2021 1:07 PM EDT) Troponin-T <0.01 0.00 - 0.00 ng/mL [facility] Comment: The 99th percentile [...] ischemia ?? New or presumed new significant NN-dbjfooq-L wave (ST-T) changes or new left bundle [...] additional sample may be indicated. Reference: Third [place] Definition of Myocardial Infarction. Journal of the [place] College of Cardiology 2012;60:1581-98 Blood 06/10/2021 1:07 PM EDT 06/10/2021 1:18 PM EDT Narrative Resulting Agency Comment Spec In Lab Isaiah Hoyos MD CHEMISTRY ORDERABLE S [facility] [place] [address] * POCT Glucose (06/10/2021 11:58 AM EDT) Glucose, POC 175 65 - 199 mg/dL [facility] Comment: Supplemental ranges: <140 mg/dL before meals <180 mg/dL all other times of the day Blood 06/10/2021 11:5 8 AM EDT 06/10/2021 11:58 AM EDT Supa Alegria MD POINT OF CARE TEST O RDERABLES [facility] [place] [address] * CARDIAC CATHETERIZATION (06/10/2021 11:45 AM EDT) Anatomical Region Laterality Modality Other Narrative 06/10/2021 12:54 PM EDT ?[facility] ? Cardiac Catheterization/Intervention Report ? Patient Name: Coelho, Romeo A. ? Procedure Date: 06/10/2021 ? A #: [id number] ? Primary Physician: Jose Trimble V ? Case #: [id number] ? File Name: [id number] ? Catheterization Order Number: [id number] ? [facility] ? Final Report [place], [place] ? Patient Name: ? Romeo Coelho ? ID#: ?[id number] ? : ?1965 ? Procedure Date: ? [...] was ?designated as ASA Class II. The [facility] clinical frailty scale is 2: Well. [...] procedure was Urgent. The indication for ?the cath lab tech visit is worsening angina. Chest pain symptom [...] Procedure Note Jose Trimble MD - 06/10/2021 [facility] Cardiac Catheterization/Intervention Report Patient Name: Romeo CoelhoNatalie Procedure Date: 06/10/2021 A #: [id number] Primary Physician: Jose Trimble V Case #: [id number] File Name: [id number] Catheterization Order Number: [id number] [facility] FinalReport [place], [place] Patient Name: Romeo Coelho ID#:[id number] :1965 Procedure Date: June 10, 2021 Case [...] was designated as ASA Class II. The [facility] clinical frailty scale is 2:Well. Diagnostic [...] diagnostic procedure was Urgent. The indicationfor the cath lab tech visit is worsening angina. Chest pain symptomassessment [...] units of heparin were administered. A total pf600jx of Omnipaque were opened, 38cc of Omnipaque were administered bhm56op of Omnipaque were wasted. Radiation: Fluoro time [...] * POCT Glucose (06/10/2021 7:59 AM EDT) [facility] Glucose, POC 191 65 - 199 mg/dL [facility] Comment: Supplemental ranges: <140 mg/dL before meals <180 mg/dL all other times of the day Blood 06/10/2021 7:59 AM EDT 06/10/2021 7:59 AM EDT Supa Alegria MD POINT OF CARE TEST O RDERABLES [facility] [place] [address] * (ABNORMAL) BMP w/fasting Glucose (06/10/2021 3:44 AM EDT) Glucose Fasting 195(H) 65 - 99 mg/dL [facility] [...] of Diabetes Mellitus, Position Statement from the [place] Diabetes Association. ??Diabetes Care, Volume 33, Supplement 1, Aug 2009 Blood Urea Nitrogen 9(L) 10 - 20 mg/dL [facility] Creatinine 0.79(L) 0.80 - 1.50 mg/dL [facility] Sodium 134(L) 135 - 145 mmol/L [facility] Potassium 4.1 3.5 - 5.0 mmol/L [facility] Comment: Please note: ??Patients with WBC >100,000 may have falsely elevated Potassium levels. ??For accurate Potassium quantification in these patients send serum separator tube (gold top) for subsequent determinations. ??Contact the Clinical Chemistry Laboratory if there are any questions. Chloride 103 98 - 107 mmol/L [facility] Carbon Dioxide 18(L) 22 - 31 mmol/L [facility] Anion Gap 13 5 - 15 mmol/L [facility] Calcium 9.4 8.5 - 10.5 mg/dL [facility] Est Glomerular Filtration Rate 102 >=60 mL/min/1. 73 m?? [facility] Comment: This patient? s [...] In Lab Coni GROVER CHEMISTRY ORDERABLE S [facility] [place] [address] * Troponin (06/10/2021 3:44 AM EDT) Troponin-T <0.01 0.00 - 0.00 ng/mL [facility] Comment: The 99th percentile [...] ischemia ?? New or presumed new significant YJ-iogulmz-V wave (ST-T) changes or new left bundle [...] additional sample may be indicated. Reference: Third [place] Definition of Myocardial Infarction. Journal of the [place] College of Cardiology 2012;60:1581-98 Blood Venous Draw / Unknown 06/10/2021 3:44 AM EDT 06/10/2021 4:06 AM EDT Narrative Resulting Agency Comment Spec In Lab Isaiah Hoyos MD CHEMISTRY ORDERABLE S Performing Organization Address [facility]/ZIP Co de Phone Number [facility] [place] [address] * Green Tube HOLD (06/10/2021 3:44 AM EDT) Green Hold Sample in lab. [facility] Blood Venous Draw / Unknown 06/10/2021 3:44 AM EDT 06/10/2021 4:03 AM EDT Isaiah Hoyos MD CHEMISTRY ORDERABLE S Performing Organization Address [facility] Co de Phone Number [facility] [place] [address] * POCT Glucose (06/10/2021 3:44 AM EDT) Glucose, POC 191 65 - 199 mg/dL [facility] Comment: Supplemental ranges: <140 mg/dL before meals <180 mg/dL all other times of the day Blood 06/10/2021 3:44 AM EDT 06/10/2021 3:44 AM EDT Supa Alegria MD POINT OF CARE TEST O RDERABLES Performing Organization Address [facility] Co de Phone Number [facility] [place] [address] * Heparin (unfractionated) Level (06/10/2021 3:44 AM EDT) [facility] UF Heparin 0.38 IU/mL [facility] [...] Lab Isaiah Hoyos MD HEMATOLOGY ORDERABL ES [facility] [place] [address] * (ABNORMAL) Differential, Automated (06/10/2021 3:44 AM EDT) [facility] Neutrophil % 55.0 % [facility] Neutrophil Absolute 4.98 1.70 - 6.10 x10(3)/mc L [facility] Lymph % 29.1 % [facility] Lymphocytes Abs 2.6 0.9 - 3.2 x10(3)/mc L [facility] Monocyte % 7.5 % [facility] Monocyte Abs 0.7 0.3 - 0.9 x10(3)/mc L [facility] Eos % 5.9 % [facility] Eosinophils Abs 0.5(H) 0.0 - 0.4 x10(3)/[facility] Basophil % 1.1 % [facility] Baso Absolute 0.1 0.0 - 0.1 x10(3)/[facility] Immature Gran % 1.40 % [facility] Comment: Immature granulocytes(IG's)percentage and absolute count will include metamyelocytes, myelocytes, and promyelocytes. Blood smears from CBCs yielding IG's will be scanned manually for concordance. If this scan disagrees with the automated IG or if promyelocytes are noted, a manual differential will be performed. Immature Gran Absolute 0.13(H) 0.00 - 0.04 x10(3)/[facility] Blood 06/10/2021 3:44 AM EDT 06/10/2021 4:03 AM EDT Narrative Resulting Agency Comment Spec In Lab Isaiah Hoyos MD HEMATOLOGY ORDERABL ES [facility] [place] [address] * Hemogram (06/10/2021 3:44 AM EDT) White Blood Cell 9.0 4.0 - 9.5 x10(3)/[facility]ORATORY Red Blood Cell 4.97 4.58 - 5.54 x10(6)/[facility]ORY Hemoglobin 14.2 13.7 - 16.5 g/dL [facility] Hematocrit 42.8 40.5 - 48.5 % [facility] Mean Cell Volume 86.1 82.9 - 93.1 fL [facility] Mean Cell Hemoglobin 28.6 27.5 - 32.1 pg [facility] Mean Cell Hemoglobin Concentration 33.2 32.0 - 35.7 g/dL [facility] Platelet 251 145 - 357 x10(3)/[facility] LABORATORY RDW Standard Deviation 40.5 36.0 - 45.0 [facility] RDW coefficient of variation 13.0 11.4 - 13.8 % [facility] Mean Platelet Volume 10.5 7.6 - 12.9 [facility] NRBC% auto 0.0 % [facility] NRBC Absolute 0.000 0.000 - 0.000 x10(3)/[facility] Blood 06/10/2021 3:44 AM EDT 06/10/2021 4:03 AM EDT Narrative Resulting Agency Comment Spec In Lab Isaiah Hoyos MD HEMATOLOGY ORDERABL ES Performing Organization Address [facility]/ZIP Co de Phone Number [facility] [place] [address] * POCT Glucose (06/09/2021 11:57 PM EDT) Glucose, POC 147 65 - 199 mg/dL [facility] Comment: Supplemental ranges: <140 mg/dL before meals <180 mg/dL all other times of the day Blood 06/09/2021 11:5 7 PM EDT 06/09/2021 11:57 PM EDT Supa Alegria MD POINT OF CARE TEST O RDERABLES Performing Organization Address [facility]/ZIP Co de Phone Number [facility] [place] [address] * POCT Glucose (06/09/2021 8:06 PM EDT) Glucose, POC 193 65 - 199 mg/dL [facility] Comment: Supplemental ranges: <140 mg/dL before meals <180 mg/dL all other times of the day Blood 06/09/2021 8:06 PM EDT 06/09/2021 8:06 PM EDT Supa Alegria MD POINT OF CARE TEST O RDERABLES [facility] [place] [address] * Troponin (06/09/2021 5:47 PM EDT) Troponin-T <0.01 0.00 - 0.00 ng/mL [facility] Comment: The 99th percentile [...] ischemia ?? New or presumed new significant LK-dvorrvi-N wave (ST-T) changes or new left bundle [...] additional sample may be indicated. Reference: Third [place] Definition of Myocardial Infarction. Journal of the [place] [employer] 2012;60:1581-98 Blood 06/09/2021 5:47 PM EDT 06/09/2021 6:02 PM EDT Narrative Resulting Agency Comment Spec In Lab Isaiah Hoyos MD CHEMISTRY ORDERABLE S [facility] [place] [address] * (ABNORMAL) POCT Glucose (06/09/2021 4:40 PM EDT) Glucose, POC 200(H) 65 - 199 mg/dL [facility] Comment: Supplemental ranges: <140 mg/dL before meals <180 mg/dL all other times of the day Blood 06/09/2021 4:40 PM EDT 06/09/2021 4:40 PM EDT Supa Alegria MD POINT OF CARE TEST O RDERAAIRAM Performing Organization Address [facility] de Phone Number [facility] [place] [address] * (ABNORMAL) POCT Glucose (06/09/2021 3:02 PM EDT) Glucose, POC 209(H) 65 - 199 mg/dL [facility] Comment: Supplemental ranges: <140 mg/dL before meals <180 mg/dL all other times of the day Blood 06/09/2021 3:02 PM EDT 06/09/2021 3:02 PM EDT Supa Alegria MD POINT OF CARE TEST O EVITA Performing Organization Address [facility] Phone Number [facility] [place] [address] * ECHO COMPLETE W CONTRAST (06/09/2021 1:52 PM EDT) Anatomical Region Laterality Modality Other 06/09/2021 Narrative 06/09/2021 2:16 PM EDT Procedure: ?Transthoracic Echocardiogram Patient: ?COELHO ROMEO A ? (Age): 1965(56y) Med Rec#: ? [id number] ?Sex: ?M ? [place] Loc[place] ? [facility] [place]Ht / Wt: ??177(cm)/114(kg) Pt. Loc: ?[facility] ? BSA: ?2.29 Study Date: ?? 06/09/2021 ?Pt. Type: Inpatient Tape: ? Referring: [email or web address] Reading: Zuleyka Hodgson ([id number]) Research Development Manager: Ortiz Sandoval Diagnosis: *Chest pain, unspecified [...] Vmax ?0.67 ? m/sec ? MV deceleration azhw533.55 ? msec ? MV A-wave Vmax ?0.48 [...] 06/09/2021 14:15:33 Images reviewed and interpretation verified [facility] Cardiac Ultrasound Laboratory Procedure Note Zuelyka Hodgson MD - 06/09/2021 Procedure: Transthoracic Echocardiogram Patient: LAQUITA HARRIS(Age): 1965(56y) Med Rec#: [id number] Sex: M [place] Loc: [facility] [place] Ht / Wt: 177(cm)/114(kg) Pt. Loc: [facility] BSA: 2.29 Study Date: 06/09/2021 Pt. Type: Inpatient Tape: Referring: ALLISONMINHDA Reading: Zuleyka Hodgson ([id number]) Research Development Manager: Ortiz Sandoval Diagnosis: *Chest pain, unspecified [...] MV E-wave Vmax 0.67 m/sec MV deceleration [id number] msec MV A-wave Vmax 0.48 m/sec MV [...] 06/09/2021 14:15:33 Images reviewed and interpretation verified [facility] Cardiac Ultrasound [facility] Isaiah Hoyos MD ECHO ORDERABLES * (ABNORMAL) POCT Glucose (06/09/2021 11:49 AM EDT) Glucose, POC 258(H) 65 - 199 mg/dL [facility] Comment: Supplemental ranges: <140 mg/dL before meals <180 mg/dL all other times of the day Blood 06/09/2021 11:4 9 AM EDT 06/09/2021 11:49 AM EDT Supa Alegria MD POINT OF CARE TEST O RDERABLES [facility] [place] [address] * Troponin (06/09/2021 11:30 AM EDT) [facility] Troponin-T <0.01 0.00 - 0.00 ng/mL [facility] Comment: The 99th percentile [...] ischemia ?? New or presumed new significant RE-ysyehfc-T wave (ST-T) changes or new left bundle [...] additional sample may be indicated. Reference: Third [place] Definition of Myocardial Infarction. Journal of the [place] College [employer]iology 2012;60:1581-98 Blood 06/09/2021 11:3 0 AM EDT 06/09/2021 11:44 AM EDT Narrative Resulting Agency Comment Spec In Lab Isaiah Hoyos MD CHEMISTRY ORDERABLE S Performing Organization Address [facility] de Phone Number [facility] [place] [address] * Heparin (unfractionated) Level (06/09/2021 11:30 AM EDT) Pathologist [facility] UF Heparin 0.32 IU/mL [facility] [...] MD HEMATOLOGY ORDERABLE S Performing Organization Address [facility] Co de Phone Number [facility] [place] [address] * (ABNORMAL) POCT Glucose (06/09/2021 8:03 AM EDT) [facility] Glucose, POC 233(H) 65 - 199 mg/dL [facility] Comment: Supplemental ranges: <140 mg/dL before meals <180 mg/dL all other times of the day Blood 06/09/2021 8:03 AM EDT 06/09/2021 8:03 AM EDT Supa Alegria MD POINT OF CARE TEST O RDERABLES [facility] [place] [address] * (ABNORMAL) Differential, Automated (06/09/2021 5:50 AM EDT) Neutrophil % 56.8 % [facility] Neutrophil Absolute 4.64 1.70 - 6.10 x10(3)/mc L [facility] Lymph % 27.0 % [facility] Lymphocytes Abs 2.2 0.9 - 3.2 x10(3)/ L [facility] Monocyte % 8.6 % [facility] Monocyte Abs 0.7 0.3 - 0.9 x10(3)/ L [facility] Eos % 5.6 % [facility] Eosinophils Abs 0.5(H) 0.0 - 0.4 x10(3)/ L [facility] Basophil % 0.9 % [facility] Baso Absolute 0.1 0.0 - 0.1 x10(3)/ L [facility] Immature Gran % 1.10 % [facility] Comment: Immature granulocytes(IG's)percentage and absolute count will include metamyelocytes, myelocytes, and promyelocytes. Blood smears from CBCs yielding IG's will be scanned manually for concordance. If this scan disagrees with the automated IG or if promyelocytes are noted, a manual differential will be performed. Immature Gran Absolute 0.09(H) 0.00 - 0.04 x10(3)/ L [facility] Blood 06/09/2021 5:50 AM EDT 06/09/2021 6:06 AM EDT Narrative Resulting Agency Comment Spec In Lab Isaiah Hoyos MD HEMATOLOGY ORDERABL ES [facility] [place] [address] * Hemogram (06/09/2021 5:50 AM EDT) [facility] White Blood Cell 8.2 4.0 - 9.5 x10(3)/[facility] LABORATORY Red Blood Cell 4.87 4.58 - 5.54 x10(6)/[facility] LABORATORY Hemoglobin 14.1 13.7 - 16.5 g/dL [facility] Hematocrit 42.0 40.5 - 48.5 % [facility] Mean Cell Volume 86.2 82.9 - 93.1 fL [facility] Mean Cell Hemoglobin 29.0 27.5 - 32.1 pg [facility] Mean Cell Hemoglobin Concentration 33.6 32.0 - 35.7 g/dL [facility] Platelet 240 145 - 357 x10(3)/[facility] LABORATORY RDW Standard Deviation 40.7 36.0 - 45.0 [facility] RDW coefficient of variation 12.9 11.4 - 13.8 % [facility] Mean Platelet Volume 10.9 7.6 - 12.9 [facility] NRBC% auto 0.0 % [facility] NRBC Absolute 0.000 0.000 - 0.000 x10(3)/[facility] LABORATORY Blood 06/09/2021 5:50 AM EDT 06/09/2021 6:06 AM EDT Narrative Resulting Agency Comment Spec In Lab Isaiah Hoyos MD HEMATOLOGY ORDERABL ES Performing Organization Address City/[facility]/ZIP Co de Phone Number [facility] [place] [address] * Troponin (06/09/2021 5:50 AM EDT) [facility] Troponin-T <0.01 0.00 - 0.00 ng/mL [facility] Comment: The 99th percentile [...] ischemia ?? New or presumed new significant OJ-tnpnrdj-A wave (ST-T) changes or new left bundle [...] additional sample may be indicated. Reference: Third [place] Definition of Myocardial Infarction. Journal of the [place] College [employer]iology 2012;60:1581-98 Blood 06/09/2021 5:50 AM EDT 06/09/2021 6:05 AM EDT Narrative Resulting Agency Comment Spec In Lab Isaiah Hoyos MD CHEMISTRY ORDERABLE S [facility] [place] [address] * Heparin (unfractionated) Level (06/09/2021 5:50 AM EDT) UF Heparin 0.31 IU/mL [facility] [...] MD HEMATOLOGY ORDERABL ES Performing Organization Address [facility] Co de Phone Number [facility] [place] [address] * Blood culture (06/09/2021 5:50 AM EDT) Blood Culture No growth at 5 days. [facility] Blood ANTECUBITAL REGION STRUCTURE / Unknown 06/09/2021 5:50 AM EDT 06/09/2021 10:08 AM EDT Comment:#1 Narrative Resulting Agency Comment Spec In Lab Isaiah Hoyos MD MICROBIOLOGY - BLOO D ORDERABLES Performing Organization Address [facility] Co de Phone Number [facility] [place] [address] * Lipid Panel (Reflex Direct LDL) (06/09/2021 5:50 AM EDT) Cholesterol, Total 207 mg/dL [facility] Comment: Lower Risk: <200 mg/dL Average Risk: 200-239 mg/dL Higher Risk: >wg=615 mg/dL Triglyceride 235 mg/dL [facility] Comment: Average Risk/Lower Risk: <150 mg/dL Borderline High Risk: 150-199 mg/dL High Risk: 200-499 mg/dL Very High Risk: >zg=420 mg/dL HDL Cholesterol 29 mg/dL [facility] Comment: Males: ?? Higher Risk: <40 mg/dL Females: ?? Higher Risk: <50 mg/dL LDL Cholesterol 131 mg/dL [facility] Comment: Lowest Risk: <100 mg/dL Lower Risk: 100-129 mg/dL Borderline High Risk: 130-159 mg/dL High Risk: 160-189 mg/dL Very High Risk: >ku=354 mg/dL Cholesterol/HDL Ratio 7.1 ratio [facility] Lipid Interpretation See Note [facility] Comment: Lipid management should be guided by a patient? s ASCVD risk, goals and preferences. ACC/AHA Guidelines recommend high intensity statin if clinical ASCVD or LDL greater than or equal to 190 mg/dL. http://[employer].com/UVB-GYH-Aioiecjcz Adults aged 40-75 with LDL 70-189 mg/dL should have their 10 year ASCVD risk estimated with the ACC/AHA ASCVD risk breeding manager http://tools.acc.org/GLZOH-Hzlc-Pmpwmbcnx/ Statin should be discussed if risk greater [...] Lab Isaiah Hoyos MD CHEMISTRY ORDERABLE S [facility] [place] [address] * COVID-19 PCR (06/09/2021 5:45 AM EDT) SARS-CoV-2 RNA (Rapid) Not Detected Not Detected [facility] Comment: This result should [...] using the Simplexa COVID-19 Direct Assay by [employer] as authorized by the FDA issued Emergency [...] Department of Pathology and Laboratory Medicine at [facility], certified under the Clinical Laboratory Improvement Amendments [...] fact sheets at the following FDA website: https://www.fda.gov/medical-devices/jmrdbyydifn-xjourgb-7554-uljgx-03-ihxxkshzn- use-a vrrmnrwozxzdz-xghqtte-dupwktf/mhvvy-yrqpatsmrda-spyd SARS-CoV-2 Source ACCOUNTS EXECUTIVE Swab [facility] Nasopharyngeal Swab 06/09/20 5:45 AM EDT 06/10/2021 6:15 AM EDT Comment:Symptoms->Surveillan ce Narrative Resulting Agency Comment Spec In Lab Isaiah Hoyos MD MICROBIOLOGY - GENE RAL ORDERABLES Performing Organization Address [facility]/ZIP Co de Phone Number [facility] [place] [address] * (ABNORMAL) POCT Glucose (06/09/2021 4:20 AM EDT) Glucose, POC 224(H) 65 - 199 mg/dL [facility] Comment: Supplemental ranges: <140 mg/dL before meals <180 mg/dL all other times of the day Blood 06/09/2021 4:20 AM EDT 06/09/2021 4:20 AM EDT Supa Alegria MD POINT OF CARE TEST O RDERABLES Performing Organization Address [facility] Co de Phone Number [facility] [place] [address] * (ABNORMAL) POCT Glucose (06/09/2021 12:35 AM EDT) Glucose, POC 346(H) 65 - 199 mg/dL [facility] Comment: Supplemental ranges: <140 mg/dL before meals <180 mg/dL all other times of the day Blood 06/09/2021 12:3 5 AM EDT 06/09/2021 12:35 AM EDT Zuleyka Hodgson MD POINT OF CARE T EST ORDERABLES Performing Organization Address [facility] Co de Phone Number [facility] [place] [address] * Heparin (unfractionated) Level (2021 10:41 PM EDT) UF Heparin 0.26 IU/mL [facility] [...] Lab Isaiah Hoyos MD HEMATOLOGY ORDERABL ES [facility] [place] [address] * EKG 12 Lead (2021 8:46 PM EDT) Ventricular rate 69 BPM MUSE SYSTEM Atrial Rate 69 BPM MUSE SYSTEM P-R Interval 148 ms MUSE SYSTEM QRS Duration 84 ms MUSE SYSTEM Q-T Interval 384 ms MUSE SYSTEM QTC Calculated (Bezet) 411 ms MUSE SYSTEM Calculated P Freeman 39 degrees MUSE SYSTEM Calculated R Freeman 14 degrees MUSE SYSTEM Calculated T Freeman 21 degrees MUSE SYSTEM INTERPRETATION Normal sinus [...] Blood Culture No growth at 5 days. [facility] Blood 2021 8:26 PM EDT 2021 8:57 PM EDT Narrative Resulting Agency Comment Spec In Lab Isaiah Hoyos MD MICROBIOLOGY - BLOO D ORDERABLES [facility] [place] [address] * Troponin (2021 7:31 PM EDT) Troponin-T <0.01 0.00 - 0.00 ng/mL [facility] Comment: The 99th percentile [...] ischemia ?? New or presumed new significant BV-zpvjmrl-H wave (ST-T) changes or new left bundle [...] additional sample may be indicated. Reference: Third [place] Definition of Myocardial Infarction. Journal of the [place] College [employer]iology 2012;60:1581-98 Blood 2021 7:31 PM EDT 2021 7:37 PM EDT Narrative Resulting Agency Comment Spec In Lab Isaiah Hoyos MD CHEMISTRY ORDERABLE S [facility] [place] [address] * (ABNORMAL) Differential, Automated (2021 7:31 PM EDT) Neutrophil % 53.6 % [facility] Neutrophil Absolute 4.36 1.70 - 6.10 x10(3)/mc L [facility] Lymph % 28.5 % [facility] Lymphocytes Abs 2.3 0.9 - 3.2 x10(3)/ L [facility] Monocyte % 10.8 % [facility] Monocyte Abs 0.9 0.3 - 0.9 x10(3)/ L [facility] Eos % 5.4 % [facility] Eosinophils Abs 0.4 0.0 - 0.4 x10(3)/ L [facility] Basophil % 1.0 % [facility] Baso Absolute 0.1 0.0 - 0.1 x10(3)/ L [facility] Immature Gran % 0.70 % [facility] Comment: Immature granulocytes(IG's)percentage and absolute count will include metamyelocytes, myelocytes, and promyelocytes. Blood smears from CBCs yielding IG's will be scanned manually for concordance. If this scan disagrees with the automated IG or if promyelocytes are noted, a manual differential will be performed. Immature Gran Absolute 0.06(H) 0.00 - 0.04 x10(3)/ L [facility] Blood 2021 7:31 PM EDT 2021 7:37 PM EDT Narrative Resulting Agency Comment Spec In Lab Isaiah Hoyos MD HEMATOLOGY ORDERABL ES [facility] [place] [address] * (ABNORMAL) Hemogram (2021 7:31 PM EDT) [facility] White Blood Cell 8.1 4.0 - 9.5 x10(3)/[facility] LABORATORY Red Blood Cell 4.65 4.58 - 5.54 x10(6)/[facility]ATORY Hemoglobin 13.5(L) 13.7 - 16.5 g/dL [facility] Hematocrit 39.4(L) 40.5 - 48.5 % [facility] Mean Cell Volume 84.7 82.9 - 93.1 fL [facility] Mean Cell Hemoglobin 29.0 27.5 - 32.1 pg [facility] Mean Cell Hemoglobin Concentration 34.3 32.0 - 35.7 g/dL [facility] Platelet 219 145 - 357 x10(3)/[facility] LABORATORY RDW Standard Deviation 39.9 36.0 - 45.0 [facility] LABORATORY RDW coefficient of variation 13.1 11.4 - 13.8 % [facility] Mean Platelet Volume 10.5 7.6 - 12.9 [facility] LABORATORY NRBC% auto 0.0 % [facility] NRBC Absolute 0.000 0.000 - 0.000 x10(3)/[facility] LABORATORY Blood 2021 7:31 PM EDT 2021 7:37 PM EDT Narrative Resulting Agency Comment Spec In Lab Isaiah Hoyos MD HEMATOLOGY ORDERABL ES [facility] [place] [address] * (ABNORMAL) Basic Metabolic Panel (non-fasting) (2021 7:31 PM EDT) [facility] Glucose 244(H) 65 - 199 mg/dL [facility] Comment:Diabetes: >=200 mg/d L plus symptoms Blood Urea Nitrogen 12 10 - 20 mg/dL [facility] Creatinine 0.73(L) 0.80 - 1.50 mg/dL [facility] Sodium 133(L) 135 - 145 mmol/L [facility] Potassium 4.0 3.5 - 5.0 mmol/L [facility] Comment: Please note: ??Patients with WBC >100,000 may have falsely elevated Potassium levels. ??For accurate Potassium quantification in these patients send serum separator tube (gold top) for subsequent determinations. ??Contact the Clinical Chemistry Laboratory if there are any questions. Chloride 100 98 - 107 mmol/L [facility] Carbon Dioxide 22 22 - 31 mmol/L [facility] Anion Gap 11 5 - 15 mmol/L [facility] Calcium 9.3 8.5 - 10.5 mg/dL [facility] Est Glomerular Filtration Rate 105 >=60 mL/min/1. 73 m?? [facility] Comment: This patient? s [...] Lab Isaiah Hoyos MD CHEMISTRY ORDERABLE S [facility] [place] [address] documented in this encounter Visit Diagnoses Not [...] 0932 (Given - Provider: Fabienne Morelos RN)1041 ([facility] Hold - Provider: Admin Adt - Reason: Transfer to a Procedural area)1224 ([facility] Unhold - Provider: Admin Adt) cephALEXin [...] 0932 (Given - Provider: Fabienne Morelos RN)1041 ([facility] Hold - Provider: Admin Adt - Reason: Transfer to a Procedural area)1224 ([facility] Unhold - Provider: Admin Adt) DULoxetine DR (Cymbalta) capsule 60 mg 60 mg, Oral, 2 TIMES DAILY, First dose on 06/08/21 at 2115, Until Discontinued, Routine 2140 (Given - Provider: Arturo Morris RN) 0837 (Given - Provider: Fabienne Morelos RN)2021 (Given - Provider: Emily Olmedo RN) 0932 (Given - Provider: Fabienne Morelos RN)1041 ([facility] Hold - Provider: Admin Adt - Reason: Transfer to a Procedural area)1224 ([facility] Unhold - Provider: Admin Adt) gabapentin (Neurontin) capsule 300 mg 300 mg, Oral, 3 TIMES DAILY, First dose on 06/08/21 at 2115, Until Discontinued, Routine 2140 (Given - Provider: Arturo Morris RN) 0837 (Given - Provider: Fabienne Morelos RN)152 (Given - Provider: Fabienne Morelos RN)202 (Given - Provider: Emily Olmedo RN) 0932 (Given - Provider: Fabienne Morelos RN)1041 ([facility] Hold - Provider: Admin Adt - Reason: Transfer to a Procedural area)1224 ([facility] Unhold - Provider: Admin Adt)1544 (Given [...] - Reason: Transfer to a Procedural area)1224 ([facility] Unhold - Provider: Admin Adt) losartan [...] - Reason: Transfer to a Procedural area)1224 ([facility] Unhold - Provider: Admin Adt) ranolazine [...] - Reason: Transfer to a Procedural area)1224 ([facility] Unhold - Provider: Admin Adt)1238 (Given - Provider: Fabienne Morelos RN) rosuvastatin (Crestor) tablet 40 mg 40 mg, Oral, EVERY EVENING, First dose on Thu06/10/21 at 1700, Until Discontinued, Routine 1041 (OCT Hold - Provider: Admin Adt - Reason: Transfer to a Procedural area)1224 ([facility] Unhold - Provider: Admin Adt)1633 (Given [...] - Reason: Transfer to a Procedural area)1224 ([facility] Unhold - Provider: Admin Adt) heparin [...] Jose Damon MD - Comment: Contrast in [employer]) lidocaine (Xylocaine) 1% (10 mg/mL) injection 3 mg 3 mg (0.3 mL), Subcutaneous, ONCE PRN, 1 dose, Starting on 06/08/21 at 1909, Until Thu06/10/21 at 2029, for discomfort with PIV insertion, Routine 1041 (OCT Hold - Pro vider: Admin Adt - Reason: Transfer to a Procedural area)1224 ([facility] Unhold - Provider: Admin Adt) lidocaine [...] - Reason: Transfer to a Procedural area)1224 ([facility] Unhold - Provider: Admin Adt) nitroGLYcerin [...] - Reason: Transfer to a Procedural area)1224 ([facility] Unhold - Provider: Admin Adt) sodium [...] Prov ider: Naye Song RN - Comment: [employer] Flush Line) verapamiL (Isoptin) (2.5 mg/mL) injection [...] Routine documented in this encounter Care Teams Fence Installer Foreman Relationship Specialty Start Date End Date Coni Lim MD [address] [place] [address] PCP - General 07/16/10 documented as of this encounter
--- OUTSIDE RECORDS SUMMARY | 2024-08-19 14:52 | XMS_ITS | Encounter Summary ---
Author Organization [facility] [place] [address] Care Team Providers Care Biological Aide Name Role Phone Coni Lim MD Primary Care Provider [phone] Encounter Details Date Type Department Care Team (Late st Contact Info) Description 06/07/2020 Telephone [place] [address] Keeley Paredes MD Social History Tobacco Use [...] on filedocumented in this encounter Care Teams Biological Aide Relationship Specialty Start Date End Date Coni Lim MD [address] [place], [place] [address] PCP - General 07/16/10 documented as of this encounter
--- OUTSIDE RECORDS SUMMARY | 2024-08-19 14:52 | XMS_ITS | Encounter Summary ---
Author Organization [facility] Address [facility] [place] [address] Care Team Providers Care Building Contractor Name Role Phone Coni Lim MD Primary Care Provider [phone] Encounter Details Date Type Department Care Team (Late st Contact Info) Description 06/07/2021 Telephone Cardiology at [address] [address] Coni Wilson PA [facility] [place] [address] Social History Tobacco Use Types Packs/Day Years [...] Referring Provider: Maria Luisa GROVER Patient Location: 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 ER provider spoke with local knockdown worker (Dr. Gutierrez) who recommended speaking with for transfer for [facility]. Vital Signs: HR 80s, SBP 110s Pertinent [...] angina. Troponin negative x1. EKG nonischemic. OSH knockdown worker recommended transfer for C. Loaded with ASA [...] management. Coni Lew PA-C Cardiovascular Medicine Pager [phone] 06/07/2021 documented in this encounter Plan of Treatment Not on file documented as of this encounter Visit Diagnoses Not on filedocumented in this encounter Care Teams Building Contractor Relationship Specialty Start Date End Date Coni Lim MD [address] [place] [address] PCP - General 07/16/10 documented as of this encounter
--- OUTSIDE RECORDS SUMMARY | 2024-08-19 14:52 | XMS_ITS | Encounter Summary ---
Author Organization [facility] Address [facility] [address] [place] [address] Care Team Providers Care Chief Operator Lock Tender Name Role Phone Coni Lim MD Primary Care Provider [phone] Reason for Visit * Consultation (Routine) - Closed Specialty Diagnoses / Procedures Referred By Contsigifredo t Referred To Contact Ophthalmology Diagnoses inflammed caruncle od Darjee, Jaymal, OD [address] [place] [address] Keeley Paredes MD [facility] [place] [address] Referral ID Status Reason Start Date Expiration Date V isits Requested Visits Authorized [id number] Closed Consult, Test & Treat 09/28/2019 09/27/2020 1 1 Encounter Details Date Type Department Care Team (Late st Contact Info) Description 05/24/2020 10:15 AM EDT [place] [address] Keeley Paredes MD Conjunctival lesion Social History Tobacco Use Types [...] conjunctiva documented in this encounter Care Teams Chief Operator Lock Tender Relationship Specialty Start Date End Date Coni Lim MD [address] [place] [address] PCP - General 07/16/10 documented as of this encounter
--- OUTSIDE RECORDS SUMMARY | 2024-08-19 14:52 | XMS_ITS | Encounter Summary ---
[place] [address] Care Team Providers Care Agriculture Specialist Name Role Phone Coni Lim MD Primary Care Provider [phone] Reason for Visit * Reason Onset Date Comments Procedure 05/24/2020 Encounter Details Date Type Department Care Team (Latest Contact Info) Description 05/24/2020 11:15 AM EDT Procedure [place] [id number] Keeley Paredes MD Conjunctival lesion Social History [...] AM EDT 05/24/2020 11:19 AM EDT Narrative [facility] - 05/24/2020 11:19 AM EDT Specimen requisition ordered. ??Separate Pathology report to follow Keeley Paredes MD PATHOLOGY/CYTOLOGY O RDERABLES [facility] [place] [address] * Surgical Pathology Report (05/24/2020 11:09 AM EDT) Final Diagnosis [id number] ? Location: The signing pathologist has (i) examined the relevant preparation(s) for the specimen(s) and (ii) rendered or confirmed the diagnosis(es). . ?Surgical Pathology DIAGNOSIS A - Eye, right caruncle cystic lesion, biopsy: Dermoid cyst. Electronically signed by: ??Wendy Oneill MD Verified: ??05/30/2020 ?Pathologist Performed at: ??-[facility] [place] [facility] [place], [place], [place] DISCUSSION Multiple deeper levels were examined. SPECIMEN(S) SUBMITTED A - right caruncle cystic lesion, biopsy (1) CLINICAL INFORMATION Right caruncle cystic lesion x1 year, irritating SPECIMEN PROCESSING A - Labeled/Fixativ e: Right eye, formalin. Quantity/Size: Two, 0.2 and 0.4 cm. Tissue Description: Soft, rubbery, yellow-walters tissues. Sections/Proces sing: Submitted en toto ??in 1 cassette labeled A1. ??shb 05/30/2020 3:05 PM EDT [facility] BIOPSY SPECIMEN / Unknown 05/24/2020 11:09 AM EDT 05/24/2020 11:09 AM EDT Keeley Paredes MD PATHOLOGY/CYTOLOGY O RDERABLES [facility] [place] [address] documented in this encounter Visit Diagnoses Diagnosis Conjunctival lesion Unspecified disorder of conjunctiva documented in this encounter Care Teams Agriculture Specialist Relationship Specialty Start Date End Date Coni Lim MD [address] [place] [address] PCP - General 07/16/10 documented as of this encounter
--- OUTSIDE RECORDS SUMMARY | 2024-08-19 14:53 | XMS_ITS | Encounter Summary ---
Author Organization [facility] [place] [address] Care Team Providers Care Drop Wire Hanger Name Role Phone Coni Lim MD Primary Care Provider [phone] Encounter Details Date Type Department Care Team (Late st Contact Info) Description 03/13/2019 External Results [facility] Patient Placement [facility] [place] [address] Social History Tobacco Use Types Packs/Day Years [...] on filedocumented in this encounter Care Teams Drop Wire Hanger Relationship Specialty Start Date End Date Coni Lim MD [address] [place] [address] PCP - General 07/16/10 documented as of this encounter
--- OUTSIDE RECORDS SUMMARY | 2024-08-19 14:53 | XMS_ITS | Encounter Summary ---
Author Organization [facility] Address [facility] [place] [address] Care Team Providers Care Azure Architect Name Role Phone Coni Lim MD Primary Care Provider [phone] Encounter Details Date Type Department Care Team (Late st Contact Info) Description 03/13/2019 11:10 PM EDT Ancillary Procedure Radiology Library at [facility] [place] [address] Wale Mckeon MD [facility] [place] [place] [address] Social History Tobacco Use Types Packs/Day Years [...] MD G FILM LIBRARY ORD ERABLES [facility] [place], [place] documented in this encounter Visit Diagnoses Not on filedocumented in this encounter Care Teams Azure Architect Relationship Specialty Start Date End Date Coni Lim MD [address] [place] [address] PCP - General 07/16/10 documented as of this encounter
--- OUTSIDE RECORDS SUMMARY | 2024-08-19 14:53 | XMS_ITS | Encounter Summary ---
Author Organization [facility] Address [facility] [place] [address] Care Team Providers Care Steam Room Attendant Name Role Phone Coni Lim MD Primary Care Provider Reason for Visit * Auth/Cert Specialty Diagnoses / Procedures Referred By Ruby t Referred To Contact Diagnoses ACS (acute coronary syndrome) UNSTABLE ANGINA Referral ID Status Reason Start Date Expiration Date Visits Re quested Visits Authorized [id number] 1 1 Encounter Details Date Type Department Care Team (Latest Contact Info) Description 03/14/2019 12:38 AM EDT - 03/16/2019 3:55 PM EDT Hospital Encounter Cardiac [place] [id number] Wale Mckeon MD [facility] [address] Unstable angina Discharge Disposition: Home Social History [...] Romeo Coe Patient Age: 53 y.o. Language: Wallisian Race: White Ethnicity: Not nor Admit date: [...] Contact Information: MD Esperanza Solis, KRYSTINA Bush, SENIOR INFORMATION SECURITY ENGINEER [phone] Discharge Diagnoses (Hospital Problems) and Secondary Diagnoses [...] TIA and GERD who was transferred from [facility] with a diagnosis of UAP. [...] was called. ?? His last admission to [facility] was in Aug 2017 when he presented [...] on Heparin gtt and transferred to [facility] for cardiac cath. Hospital Course: Undifferentiated Chest Pain - Coronary Vasospasm/Microvessel angina vs Non- Cardiac Chest Pain Romeo Coe is a 53 yo M transferred from [facility] for evaluation of unstable angina. [...] PF, Split 07/30/2013 ??? Influenza Vaccine (Novel) [id number], Injectable 05/24/2009 ??? Influenza Vaccine w/Preservative, Split [...] appointments: During 8am-5pm Thursday through Thursday call [phone] to speak with a nurse in the cardiology clinic All other times call [phone] and ask to speak to the integrated specialist slot machine department floorperson. Return to work: Ok to resume, no heavy lifting for one week (nothing over 10 lbs) Driving: No driving for 48 hours after catheterization. Follow up Appointments: PCP Coni Lim MD/Keo Ballard [phone] Your follow up appointment is scheduled for March 25, 2019 at 10 45 am Cardiology- Dr. Lawson - [phone] (First apt at [facility], then you will be seen at [facility] thereafter).Your follow up appointment is scheduled for Saturday April 13, 2019 at 1:15 pm Home oxygen therapy: N/A Arrangements for VNA/home care: none Discharge References/Attachments None Esperanza Collier APRN Cardiovascular Medicine Pager [phone] 03/16/2019 documented in this encounter Discharge Instructions * Discharge Instructions* Esperanza Collier APRN - 03/16/2019 3:00 PM EDT Call your doctor if: Chest pain, shortness of breath, pain or swelling in legs occurs. If you have non-emergent questions between now and the time of your follow up appointments: During 8am-5pm Thursday through Thursday call [phone] to speak with a nurse in the cardiology clinic All other times call [phone] and ask to speak to the integrated specialist slot machine department floorperson. Return to work: Ok to resume, no heavy lifting for one week (nothing over 10 lbs) Driving: No driving for 48 hours after catheterization. Follow up Appointments: PCP Coni Lim MD/Keo Ballard [phone] Your follow up appointment is scheduled for March 25, 2019 at 10 45 am Cardiology- Dr. Lawson - [phone] (First apt at [facility], then you will be seen at [facility] thereafter).Your follow up appointment is [...] Progress Note Patient Name: Romeo Coe Service: CONSTRUCTION HELPER / PA Responsible Attending: Wale Mckeon [...] Full code Discussed with MD Esperanza Brar [facility] Cardiovascular Medicine Pager [phone] 03/16/2019 Attending Air Tool Operator Addendum: This patient was seen in conjunction with Esperanza Collier as part of a shared visit. I have independently interviewed and examined the patient and reviewed the pertinent diagnostic information. I agree with the principal findings documented above. The assessment and plan were formulated in discussion with me. Ruled out PE with CT today. Ready for discharge on medical therapies. Wale Mckeon MD, [facility], [facility] Staff Air Tool Operator pager [phone] * Jacqueline Montes De Oca RN - [...] Progress Note Patient Name: Romeo Coe Service: CONSTRUCTION HELPER / PA Responsible Attending: Wale Mckeon MD Reason for continued hospitalization: Evaluation and management of unstable angina S/p [facility] Medication adjustment Active Problems: Active Hospital Problems [...] Full code Discussed with MD Esperanza Brar [facility] Cardiovascular Medicine Pager [phone] 03/15/2019 Attending Air Tool Operator Addendum: This patient was seen in conjunction [...] limited us thus far. Wale Mckeon MD, [facility], [facility] Staff Air Tool Operator pager [phone] * Wale Mckeon MD - 03/14/2019 9:23 AM EDT Images from the original note were not included. Inpatient Cardiology Progress Note Patient Name: Romeo Coe Service: CONSTRUCTION HELPER / PA Responsible Attending: Wale Mckeon MD Reason for continued hospitalization: Evaluation and management of unstable angina Awaiting [facility] today Active Problems: Active Hospital Problems Diagnosis ??? ACS (acute coronary syndrome) Resolved Hospital Problems No resolved problems to display. Interval History: Admitted overnight in the setting of unstable angina. Troponins negative. TTE with preserved EF at 63% and no WMA. Awaiting [facility] today. Review of Systems: Review of Systems [...] Full code Discussed with MD Siri Brar, SENIOR INFORMATION SECURITY ENGINEER Pager [phone] 03/14/2019 Attending Air Tool Operator Addendum: This patient was seen in conjunction [...] regimen today (include vasodilator) Wale Mckeon MD, [facility], [facility] Staff Air Tool Operator pager [phone] documented in this encounter H&P Notes * [...] TIA and GERD who was transferred from [facility] with a diagnosis of UAP. [...] EMS was called. His last admission to [facility] was in Aug 2017 when he presented [...] started on Heparin gtt and transferred to [facility] for cardiac cath. Past Medical History: Past [...] of Onset ??? Myocardial Infarction Father 46 [place], CABG ??? Heart Disease Father ??? Diabetes [...] file Gets together: Not on file Attends denominational service: Not on file Active member of [...] Lives with and daughter at home in [place], [place]. He is disabled now. He used [...] . Pulses palpable, no calf tenderness Neuro/SALES LEDGER CLERK: AAO x 3, No evident deficits Skin/Integumentary: [...] multiple PCIs since 2011. Last Cath at [facility] in Aug 2017 that showed the patency [...] with good effect. Right radial cath site VOICE OVER ANNOUNCER, +pulses, no hematoma present. Pt able to [...] OUTCOME EVALUATION NOTE: OUTCOME SUMMARY: Patient to supervisor laboratory animal facility today. No interventions. Right radial cath site [...] TIA and GERD who was transferred from [facility] with a diagnosis of UAP Past Medical History: Diagnosis Date ??? Allergy ??? CAD (coronary artery disease), non-obstructive 05/31/2012 ??? Depression ??? DM (diabetes mellitus) 05/31/2012 ??? Dyslipidemia 05/31/2012 ??? GERD (gastroesophageal reflux disease) 05/31/2012 ??? HTN (hypertension) 05/31/2012 ??? Hx-TIA (transient ischemic attack) 06/03/2012 ??? Smoker 05/31/2012 Hospitalizations Within the Past 30 Days: no [facility] admits in last 30 days. Anticipated Length Of Stay (If known): 1-3 days Current Decision-Making Capacity: Patient is A&Ox4 and able to make all medical decisions Advance Care Planning: Full Code Not in EPIC.This author discussed ADs with patient and offered advance directive booklet and forms,patient deferred will discuss with family at a later time. [place] surrogacy law and process of guardianship explained. If AD's have not been completed then Spouse Dasia would be surrogate decision maker per [place] surrogate decision making law. Current Coping/Education/Information Needs: Current coping questions and concerns have been addressed. Current Functional Ability: assist of staff Functional Status Prior to Admission: independent with ADLs, driving, no DME used at baseline. Home Environment: lives in 2 level house, bedroom downstairs, no stairs to enter from outside[address] [place] [address] Social & Family Supports/Community Resources: lives with spouse and daughter Extended Emergency Contact Information Primary Emergency Contact: Dasia Coe Address: [address] [place] [address] [facility] [place] Relation: Spouse Health/Prescription Coverage: Primary Insurance: MEDICARE Secondary Insurance: N/A Prescription Coverage: Yes Preferred Pharmacy: [id number] - [place] [id number] [facility] [address] [place] [id number] Other: none Primary Care Provider: Coni Lim MD [phone] Patient/Caregiver Goals of Treatment: return to previous [...] of care planning. Rashmi Simmons, VERO Nurse Rn Neonatal Icu Pager [phone] * Op Note - Lexus Gutiérrez MD - 03/14/2019 10:54 AM EDT [facility] Operative Note Patient Name: Romeo Coe : [id number] MR#: [id number] Case Date: 03/14/2019 Surgeon: Surgeon(s) and Role: * Lexus Gutiérrez MD - Primary * Satnam Leger MD - Fellow Preoperative diagnosis: ?CAD Postoperative diagnosis: No new obstructive lesions from prior cath Procedure(s) (LRB): CARDIAC CATHETERIZATION (N/A) CORONARY ANGIOGRAPHY; W [facility],POSSIBLE PCI (N/A) Access: Radial provided good support for procedure. 6 Fr RRA with TR band in place, good hemostasis. The patient tolerated the procedures smoothly and was transferred from the cardiac catheterization lab to the next level of care in stable condition, without pain. No evident early complications. Results discussed with service medical artist Dr Mckeon, and with the patient. He did not have family that he preferred we call. He needs to be connected with a referring medical artist locally (seen at [facility]). A time-out was conducted prior [...] Dean had a good night. Arrived from [facility] hospital on Heparin drip. Denied [...] further details. Ed Simpson MD 03/14/2019 Pager [phone] documented in this encounter Plan of Treatment [...] Glucose, POC 106 65 - 199 mg/dL [facility] Comment: Supplemental ranges: <140 mg/dL before meals <180 mg/dL all other times of the day Blood specimen (specimen) 03/16/2019 11:34 AM EDT 03/16/2019 11:34 AM EDT Wale Mckeon MD POINT OF CARE TEST O RDERABLES Performing Organization Address City/[facility]/ZIP Co de Phone Number [facility] [place] [address] * POCT Glucose (03/16/2019 7:38 AM EDT) Glucose, POC 102 65 - 199 mg/dL [facility] Comment: Supplemental ranges: <140 mg/dL before meals <180 mg/dL all other times of the day Blood specimen (specimen) 03/16/2019 7:38 AM EDT 03/16/2019 7:38 AM EDT Wale Mckeon MD POINT OF CARE TEST O RDERAAIRAM Performing Organization Address [facility] Co de Phone Number [facility] [place] [address] * EKG 12 Lead (03/16/2019 7:07 AM EDT) Ventricular rate 59 BPM MUSE SYSTEM Atrial Rate 59 BPM MUSE SYSTEM P-R Interval 148 ms MUSE SYSTEM QRS Duration 88 ms MUSE SYSTEM Q-T Interval 408 ms MUSE SYSTEM QTC Calculated (Bezet) 403 ms MUSE SYSTEM Calculated P Fife 7 degrees MUSE SYSTEM Calculated R Fife 23 degrees MUSE SYSTEM Calculated T Fife 40 degrees MUSE SYSTEM INTERPRETATION Sinus bradycardia Otherwise normal ECG When compared with ECG of 15-MAR-2019 20:23, No significant change was found Confirmed by MD SOUMYA, JENNIFER ([id number]) on 03/16/2019 8:30:39 AM MUSE SYSTEM 03/16/2019 7:07 AM EDT 03/16/2019 8:30 AM EDT Siri Bush APRN ECG ORDERABLES Performing Organization Address City/[facility] Co de Phone Number MUSE SYSTEM * Differential, Automated (03/16/2019 5:07 AM EDT) Neutrophil % 48.9 % [facility] Neutrophil Absolute 3.25 1.70 - 6.10 x10(3)/[facility] Lymph % 38.1 % [facility] Lymphocytes Abs 2.5 0.9 - 3.2 x10(3)/[facility] Monocyte % 8.0 % [facility] Monocyte Abs 0.5 0.3 - 0.9 x10(3)/[facility] Eos % 4.2 % [facility] Eosinophils Abs 0.3 0.0 - 0.4 x10(3)/[facility] Basophil % 0.5 % [facility] Baso Absolute 0.0 0.0 - 0.1 x10(3)/[facility] Immature Gran % 0.30 % [facility] Comment: Immature granulocytes(IG's)percentage and absolute count will include metamyelocytes, myelocytes, and promyelocytes. Blood smears from CBCs yielding IG's will be scanned manually for concordance. If this scan disagrees with the automated IG or if promyelocytes are noted, a manual differential will be performed. Immature Gran Absolute 0.02 0.00 - 0.04 x10(3)/[facility] Blood specimen (specimen) 03/16/2019 5:07 AM EDT 03/16/2019 5:24 AM EDT Narrative Resulting Agency Comment Spec In Lab Siri Bush APRN HEMATOLOGY ORDERAB LES [facility] [place] [address] * Hemogram (03/16/2019 5:07 AM EDT) White Blood Cell 6.6 4.0 - 9.5 x10(3)/[facility] Red Blood Cell 5.33 4.58 - 5.54 x10(6)/[facility] Hemoglobin 15.6 13.7 - 16.5 gm/dL [facility] Hematocrit 45.4 40.5 - 48.5 % [facility] Mean Cell Volume 85.2 82.9 - 93.1 fL [facility] Mean Cell Hemoglobin 29.3 27.5 - 32.1 pg [facility] Mean Cell Hemoglobin Concentration 34.4 32.0 - 35.7 gm/dL [facility] Platelet 154 145 - 357 x10(3)/[facility] RDW Standard Deviation 38.3 36.0 - 45.0 [facility] RDW coefficient of variation 12.5 11.4 - 13.8 % [facility] Mean Platelet Volume 10.9 7.6 - 12.9 [facility]ATORY NRBC% auto 0.0 % [facility] NRBC Absolute 0.000 0.000 - 0.000 x10(3)/[facility] Blood specimen (specimen) 03/16/2019 5:07 AM EDT 03/16/2019 5:24 AM EDT Narrative Resulting Agency Comment Spec In Lab Siri Bush APRN HEMATOLOGY ORDERAB LES [facility] [place] [address] * (ABNORMAL) BMP w/fasting Glucose (03/16/2019 5:07 AM EDT) Glucose Fasting 119(H) 65 - 99 mg/dL [facility] [...] of Diabetes Mellitus, Position Statement from the [place] [employer]. ??Diabetes Care, Volume 33, Supplement 1, Aug 2009 Blood Urea Nitrogen 10 10 - 20 mg/dL [facility] Creatinine 0.91 0.80 - 1.50 mg/dL [facility] Sodium 138 135 - 145 mmol/L [facility] Potassium 3.6 3.5 - 5.0 mmol/L [facility] Comment: Please note: ??Patients with WBC >100,000 may have falsely elevated Potassium levels. ??For accurate Potassium quantification in these patients send serum separator tube (gold top) for subsequent determinations. ??Contact the Clinical Chemistry Laboratory if there are any questions. Chloride 106 98 - 107 mmol/L [facility] Carbon Dioxide 20(L) 22 - 31 mmol/L [facility] Anion Gap 12 5 - 15 mmol/L [facility] Calcium 9.2 8.5 - 10.5 mg/dL [facility] Est Glomerular Filtration Rate 97 >=60 mL/min/1. 73 m?? [facility] Comment: The eGFR was calculated using the CKD-EPI equation. As with all creatinine based estimates of kidney function, eGFR values calculated with the CKD-EPI equation are not accurate in patients with acute kidney failure, extremes of body mass or the acutely ill. http://Ranku/DHMCnkf eGFR 113 >=60 mL/min/1. 73 m?? [facility] Comment: The eGFR was calculated using the CKD-EPI equation. As with all creatinine based estimates of kidney function, eGFR values calculated with the CKD-EPI equation are not accurate in patients with acute kidney failure, extremes of body mass or the acutely ill. [email or web address]/DHMCnkf Blood specimen (specimen) 03/16/2019 5:07 AM EDT 03/16/2019 5:24 AM EDT Narrative Resulting Agency Comment Spec In Lab Siri Bush APRN CHEMISTRY ORDERABL ES [facility] [place] [address] * EKG 12 Lead (03/15/2019 8:23 PM EDT) Ventricular rate 65 BPM MUSE SYSTEM Atrial Rate 65 BPM MUSE SYSTEM P-R Interval 140 ms MUSE SYSTEM QRS Duration 86 ms MUSE SYSTEM Q-T Interval 384 ms MUSE SYSTEM QTC Calculated (Bezet) 399 ms MUSE SYSTEM Calculated P Fife 16 degrees MUSE SYSTEM Calculated R Fife 39 degrees MUSE SYSTEM Calculated T Fife 37 degrees MUSE SYSTEM INTERPRETATION Normal sinus rhythm Normal ECG When compared with ECG of 15-MAR-2019 10:49, No significant change was found Confirmed by MD SOUMYA, JENNIFER ([id number]) on 03/16/2019 12:17:34 AM MUSE SYSTEM 03/15/2019 8:23 PM EDT 03/16/2019 12:17 AM EDT Wale Mckeon MD ECG ORDERABLES Performing Organization Address City/[facility]/ZIP Co de Phone Number MUSE SYSTEM * POCT Glucose (03/15/2019 8:13 PM EDT) Glucose, POC 134 65 - 199 mg/dL [facility] Comment: Supplemental ranges: <140 mg/dL before meals <180 mg/dL all other times of the day Blood specimen (specimen) 03/15/2019 8:13 PM EDT 03/15/2019 8:13 PM EDT Wale Mckeon MD POINT OF CARE TEST O RDERABLES [facility] [place] [address] * POCT Glucose (03/15/2019 4:58 PM EDT) Glucose, POC 109 65 - 199 mg/dL [facility] Comment: Supplemental ranges: <140 mg/dL before meals <180 mg/dL all other times of the day Blood specimen (specimen) 03/15/2019 4:58 PM EDT 03/15/2019 4:58 PM EDT Wale Mckeon MD POINT OF CARE TEST O RDEFE Performing Organization Address City/[facility]/ZIP Co de Phone Number [facility] [place] [address] * POCT Glucose (03/15/2019 11:47 AM EDT) [facility] Glucose, POC 110 65 - 199 mg/dL [facility] Comment: Supplemental ranges: <140 mg/dL before meals <180 mg/dL all other times of the day Blood specimen (specimen) 03/15/2019 11:47 AM EDT 03/15/2019 11:47 AM EDT Wale Mckeon MD POINT OF CARE TEST O EVITA Performing Organization Address [facility] Co de Phone Number [facility] [place] [address] * Troponin (03/15/2019 11:17 AM EDT) [facility] Troponin-T <0.01 0.00 - 0.00 ng/mL [facility] Comment: The 99th percentile for Troponin T is less than 0.01 ng/mL, any detectable cTnT concentration using this assay should be considered elevated. According to the third universal definition of myocardial infarction the following criteria with a clinical presentation consistent with acute myocardial ischemia meets the diagnosis for a myocardial infarction ([place]). Detection of a rise and/or fall of cTnT, with at least one value greater than the 99th percentile (> or = 0.01) and with at least one of the following ?? Symptoms of ischemia ?? New or presumed new significant AG-pcajztc-C wave (ST-T) changes or new left bundle [...] additional sample may be indicated. Reference: Third [place] Definition of Myocardial Infarction. Journal of the [place] College [employer] 2012;60:1581-98 Blood specimen (specimen) 03/15/2019 11:17 AM EDT 03/15/2019 11:42 AM EDT Narrative Resulting Agency Comment Spec In Lab Esperanza Collier KRYSTINA CHEMISTRY ORDERABLES Performing Organization Address [facility] Co de Phone Number [facility] [place] [address] * EKG 12 Lead (03/15/2019 10:49 AM EDT) [facility] Ventricular rate 59 BPM MUSE SYSTEM Atrial Rate 59 BPM MUSE SYSTEM P-R Interval 140 ms MUSE SYSTEM QRS Duration 86 ms MUSE SYSTEM Q-T Interval 398 ms MUSE SYSTEM QTC Calculated (Bezet) 394 ms MUSE SYSTEM Calculated P Fife 13 degrees MUSE SYSTEM Calculated R Fife 42 degrees MUSE SYSTEM Calculated T Fife 49 degrees MUSE SYSTEM INTERPRETATION Sinus bradycardia Otherwise normal ECG When compared with ECG of 15-MAR-2019 07:08, No significant change was found Confirmed by MD Buchanan Timothy ([id number]) on 03/15/2019 12:09:31 PM MUSE SYSTEM 03/15/2019 10:4 9 AM EDT 03/15/2019 12:09 PM EDT Esperanza Vicki Collier APRN ECG ORDERABLES Performing Organization Address [facility] de Phone Number MUSE SYSTEM * POCT Glucose (03/15/2019 7:57 AM EDT) [facility] Glucose, POC 114 65 - 199 mg/dL [facility] Comment: Supplemental ranges: <140 mg/dL before meals <180 mg/dL all other times of the day Blood specimen (specimen) 03/15/2019 7:57 AM EDT 03/15/2019 7:57 AM EDT Wale Mckeon MD POINT OF CARE TEST O RDERABLES Performing Organization Address [facility] Co de Phone Number [facility] [place] [address] * EKG 12 Lead (03/15/2019 7:08 AM EDT) Ventricular rate 58 BPM MUSE SYSTEM Atrial Rate 58 BPM MUSE SYSTEM P-R Interval 140 ms MUSE SYSTEM QRS Duration 90 ms MUSE SYSTEM Q-T Interval 410 ms MUSE SYSTEM QTC Calculated (Bezet) 402 ms MUSE SYSTEM Calculated P Fife 5 degrees MUSE SYSTEM Calculated R Fife 24 degrees MUSE SYSTEM Calculated T Fife 34 degrees MUSE SYSTEM INTERPRETATION Sinus bradycardia Otherwise normal ECG When compared with ECG of 14-MAR-2019 19:41, No significant change was found Confirmed by MD SOUMYA, JENNIFER ([id number]) on 03/15/2019 9:53:01 AM MUSE SYSTEM 03/15/2019 7:08 AM EDT 03/15/2019 9:53 AM EDT Siri Panchal [place] KRYSTINA ECG ORDERABLES MUSE SYSTEM * Differential, Automated (03/15/2019 5:01 AM EDT) Pathologist [facility] Neutrophil % 46.9 % [facility] Neutrophil Absolute 2.78 1.70 - 6.10 x10(3)/[facility] LABORAT[facility] Lymph % 40.6 % [facility] Lymphocytes Abs 2.4 0.9 - 3.2 x10(3)/[facility] Monocyte % 7.7 % [facility] Monocyte Abs 0.5 0.3 - 0.9 x10(3)/[facility] Eos % 3.7 % [facility] Eosinophils Abs 0.2 0.0 - 0.4 x10(3)/[facility] Basophil % 0.8 % [facility] Baso Absolute 0.0 0.0 - 0.1 x10(3)/[facility] Immature Gran % 0.30 % [facility] Comment: Immature granulocytes(IG's)percentage and absolute count will include metamyelocytes, myelocytes, and promyelocytes. Blood smears from CBCs yielding IG's will be scanned manually for concordance. If this scan disagrees with the automated IG or if promyelocytes are noted, a manual differential will be performed. Immature Gran Absolute 0.02 0.00 - 0.04 x10(3)/[facility] Blood specimen (specimen) 03/15/2019 5:01 AM EDT 03/15/2019 5:12 AM EDT Narrative Resulting Agency Comment Spec In Lab Siri Bush SENIOR INFORMATION SECURITY ENGINEER HEMATOLOGY ORDERAB LES [facility] [place] [address] * Hemogram (03/15/2019 5:01 AM EDT) White Blood Cell 5.9 4.0 - 9.5 x10(3)/[facility] LABORATORY Red Blood Cell 4.95 4.58 - 5.54 x10(6)/[facility] LABORATORY Hemoglobin 14.6 13.7 - 16.5 gm/dL [facility] Hematocrit 43.1 40.5 - 48.5 % [facility] Mean Cell Volume 87.1 82.9 - 93.1 [facility] LABORATORY Mean Cell Hemoglobin 29.5 27.5 - 32.1 pg [facility] Mean Cell Hemoglobin Concentration 33.9 32.0 - 35.7 gm/dL [facility] Platelet 156 145 - 357 x10(3)/[facility] LABORATORY RDW Standard Deviation 40.2 36.0 - 45.0 [facility] LABORATORY RDW coefficient of variation 12.5 11.4 - 13.8 % [facility] Mean Platelet Volume 10.4 7.6 - 12.9 [facility] LABORATORY NRBC% auto 0.0 % [facility] LABORATORY NRBC Absolute 0.000 0.000 - 0.000 x10(3)/[facility] LABORATORY Blood specimen (specimen) 03/15/2019 5:01 AM EDT 03/15/2019 5:12 AM EDT Narrative Resulting Agency Comment Spec In Lab Siri Bush SENIOR INFORMATION SECURITY ENGINEER HEMATOLOGY ORDERAB LES [facility] [place] [address] * (ABNORMAL) BMP w/fasting Glucose (03/15/2019 5:01 AM EDT) Glucose Fasting 120(H) 65 - 99 mg/dL [facility] [...] of Diabetes Mellitus, Position Statement from the [place] [employer]. ??Diabetes Care, Volume 33, Supplement 1, Aug 2009 Blood Urea Nitrogen 11 10 - 20 mg/dL [facility] Creatinine 0.90 0.80 - 1.50 mg/dL [facility] Sodium 142 135 - 145 mmol/L [facility] Potassium 3.8 3.5 - 5.0 mmol/L [facility] Comment: Please note: ??Patients with WBC >100,000 may have falsely elevated Potassium levels. ??For accurate Potassium quantification in these patients send serum separator tube (gold top) for subsequent determinations. ??Contact the Clinical Chemistry Laboratory if there are any questions. Chloride 109(H) 98 - 107 mmol/L [facility] Carbon Dioxide 23 22 - 31 mmol/L [facility] Anion Gap 10 5 - 15 mmol/L [facility] Calcium 9.1 8.5 - 10.5 mg/dL [facility] Est Glomerular Filtration Rate 99 >=60 mL/min/1. 73 m?? [facility] Comment: The eGFR was calculated using the CKD-EPI equation. As with all creatinine based estimates of kidney function, eGFR values calculated with the CKD-EPI equation are not accurate in patients with acute kidney failure, extremes of body mass or the acutely ill. [email or web address] eGFR 114 >=60 mL/min/1. 73 m?? [facility] Comment: The eGFR was calculated using the CKD-EPI equation. As with all creatinine based estimates of kidney function, eGFR values calculated with the CKD-EPI equation are not accurate in patients with acute kidney failure, extremes of body mass or the acutely ill. [email or web address] Blood specimen (specimen) 03/15/2019 5:01 AM EDT 03/15/2019 5:12 AM EDT Narrative Resulting Agency Comment Spec In Lab Siri Bush APRN CHEMISTRY ORDERABL ES [facility] [place] [address] * (ABNORMAL) Hemoglobin A1c (03/15/2019 5:01 AM EDT) Hemoglobin A1c 6.8(H) 4.3 - 5.6 % [facility] Comment: Reference Range: 4.3 [...] Mellitus, Diabetes Care 2013; 36: Suppl. 1, O57-22 Estimated Average Glucose 148 mg/dL [facility] Comment: eAG equivalents for [...] into estimated average glucose values. ??Diabetes Care 2008:31(8):9002-3982. Blood specimen (specimen) 03/15/2019 5:01 AM EDT 03/15/2019 5:12 AM EDT Narrative Resulting Agency Comment Spec In Lab Siri Bush APRN CHEMISTRY ORDERABL ES [facility] [place] [address] * Lipid Panel (03/15/2019 5:01 AM EDT) Cholesterol, Total 207 mg/dL [facility] Comment: Lower Risk: <200 mg/dL Average Risk: 200-239 mg/dL Higher Risk: >fx=105 mg/dL Triglyceride 256 mg/dL [facility] Comment: Average Risk/Lower Risk: <150 mg/dL Borderline High Risk: 150-199 mg/dL High Risk: 200-499 mg/dL Very High Risk: >zp=698 mg/dL HDL Cholesterol 28 mg/dL [facility] Comment: Males: ?? Higher Risk: <40 mg/dL Females: ?? HIgher Risk: <50 mg/dL LDL Cholesterol 128 mg/dL [facility] Comment: Lowest Risk: <100 mg/dL Lower Risk: 100-129 mg/dL Borderline High Risk: 130-159 mg/dL High Risk: 160-189 mg/dL Very High Risk: >fk=286 mg/dL Cholesterol/HDL Ratio 7.4 ratio [facility] Lipid Interpretation See Note [facility] Comment: Lipid management should be guided by a patient? s ASCVD risk, goals and preferences. ACC/AHA Guidelines recommend high intensity statin if clinical ASCVD or LDL greater than or equal to 190 mg/dL. http://[email or web address]/KAU-DKR-Jsyijjlpf Adults aged 40-75 with LDL 70-189 mg/dL should have their 10 year ASCVD risk estimated with the ACC/AHA ASCVD risk commercial construction estimator http://tools.acc.org/UMFVW-Gvjt-Bagpmcyvd/ Statin should be discussed if risk greater [...] Lab Siri Bush APRN CHEMISTRY ORDERABL ES [facility] [place] [address] * POCT Glucose (03/14/2019 7:50 PM EDT) Glucose, POC 123 65 - 199 mg/dL [facility] Comment: Supplemental ranges: <140 mg/dL before meals <180 mg/dL all other times of the day Blood specimen (specimen) 03/14/2019 7:50 PM EDT 03/14/2019 7:50 PM EDT Wale Mckeon MD POINT OF CARE TEST O RDERABLES Performing Organization Address [facility] Co de Phone Number [facility] [place] [address] * EKG 12 Lead (03/14/2019 7:41 PM EDT) [facility] Ventricular rate 59 BPM MUSE SYSTEM Atrial Rate 59 BPM MUSE SYSTEM P-R Interval 142 ms MUSE SYSTEM QRS Duration 80 ms MUSE SYSTEM Q-T Interval 396 ms MUSE SYSTEM QTC Calculated (Bezet) 392 ms MUSE SYSTEM Calculated P Fife 40 degrees MUSE SYSTEM Calculated R Fife 37 degrees MUSE SYSTEM Calculated T Fife 46 degrees MUSE SYSTEM INTERPRETATION Sinus bradycardia Otherwise normal ECG When compared with ECG of 14-MAR-2019 01:06, No significant change was found Confirmed by MD SOUMYA, JENNIFER ([id number]) on 03/15/2019 9:52:58 AM MUSE SYSTEM 03/14/2019 7:41 PM EDT 03/15/2019 9:52 AM EDT Wale Mckeon MD ECG ORDERABLES Performing Organization Address [facility] Co de Phone Number MUSE SYSTEM * POCT Glucose (03/14/2019 4:21 PM EDT) [facility] Glucose, POC 128 65 - 199 mg/dL [facility] Comment: Supplemental ranges: <140 mg/dL before meals <180 mg/dL all other times of the day Blood specimen (specimen) 03/14/2019 4:21 PM EDT 03/14/2019 4:21 PM EDT Wale Mckeon MD POINT OF CARE TEST O RDERABLES Performing Organization Address [facility] Co de Phone Number [facility] [place] [address] * Troponin (03/14/2019 3:10 PM EDT) [facility] Troponin-T <0.01 0.00 - 0.00 ng/mL [facility] Comment: The 99th percentile for Troponin T is less than 0.01 ng/mL, any detectable cTnT concentration using this assay should be considered elevated. According to the third universal definition of myocardial infarction the following criteria with a clinical presentation consistent with acute myocardial ischemia meets the diagnosis for a myocardial infarction (IN). Detection of a rise and/or fall of cTnT, with at least one value greater than the 99th percentile (> or = 0.01) and with at least one of the following ?? Symptoms of ischemia ?? New or presumed new significant OA-jmxecym-M wave (ST-T) changes or new left bundle [...] additional sample may be indicated. Reference: Third [place] Definition of Myocardial Infarction. Journal of the [place] [employer] 2012;60:1581-98 Blood specimen (specimen) 03/14/2019 3:10 PM EDT 03/14/2019 3:19 PM EDT Narrative Resulting Agency Comment Spec In Lab Wale Mckeon MD CHEMISTRY ORDERABLES Performing Organization Address City/State/[facility] Co de Phone Number [facility] [place] [address] * XR Chest PA or AP 1 [...] * POCT Glucose (03/14/2019 11:41 AM EDT) [facility] Signature Glucose, POC 96 65 - 199 mg/dL [facility] Comment: Supplemental ranges: <140 mg/dL before meals <180 mg/dL all other times of the day Blood specimen (specimen) 03/14/2019 11:41 AM EDT 03/14/2019 11:41 AM EDT Wale Mckeon MD POINT OF CARE TEST O RDERABLES [facility] [place] [address] * CARDIAC CATHETERIZATION (03/14/2019 10:55 AM EDT) Anatomical Region Laterality Modality Other Narrative 03/15/2019 4:29 PM EDT ?[facility] ? Cardiac Catheterization/Intervention Report ? Patient Name: Coe, Romeo A. ? Procedure Date: 03/14/2019 ? A #: [id number] ? Primary Physician: Lexus Gutiérrez ? Case #: [id number] ? File Name: [id number] ? Catheterization Order Number: [id number] ? [facility] ? Final Report [place], [place] ? Patient Name: ? Romeo Coe ? ID#: ?[id number] ? : ?1965 ? Procedure Date: ? [...] procedure was Urgent. The indication for ?the supervisor laboratory animal facility visit is ACS less than or equal [...] Procedure Note Lexus Gutiérrez MD - 08/13/2019 [facility] Cardiac Catheterization/Intervention Report Patient Name: Romeo Coe Procedure Date: 03/14/2019 A #: [id number] Primary Physician: Lexus Gutiérrez Case #: File Name: [id number] Catheterization Order Number: [id number] [facility] FinalReport [place], [place] Patient Name: Romeo Coe ID#:[id number] :1965 Procedure Date: March 14, 2019 Case [...] patient was designated as ASAClass III. The [facility] clinical frailty scale is 2: Well. Diagnostic Tests: Prior Coronary Angiography: Prior coronary angiography was performed on 09/13/2017 andshowed non-obstructive CAD. LV ejection fraction within 6 months is63%. Electrocardiography: EKG was assessed by ECG. EKG was Normal. Medications Prior to Procedure: ASA, Beta Agatha and Statin. Indications for Diagnostic Cath: The priority of the diagnostic procedure was Urgent. The indicationfor the supervisor laboratory animal facility visit is ACS less than or equal [...] meets the diagnosis for a myocardial infarction (IN). Detection of a rise and/or fall of cTnT, with at least one value greater than the 99th percentile (> or = 0.01) and with at least one of the following ?? Symptoms of ischemia ?? New or presumed new significant SM-zrhzfgs-V wave (ST-T) changes or new left bundle [...] additional sample may be indicated. Reference: Third [place] Definition of Myocardial Infarction. Journal of the [place] [employer] 2012;60:1581-98 Blood specimen (specimen) 03/14/2019 8:53 AM EDT 03/14/2019 9:06 AM EDT Narrative Resulting Agency Comment Spec In Lab Wale Mckeon MD CHEMISTRY ORDERABLES [facility] [place] [address] * (ABNORMAL) Differential, Automated (03/14/2019 8:53 AM EDT) Neutrophil % 33.7 % [facility] LABORATORY Neutrophil Absolute 2.11 1.70 - 6.10 x10(3)/ L [facility] Lymph % 52.4 % [facility] Lymphocytes Abs 3.3(H) 0.9 - 3.2 x10(3)/[facility] LABORATORY Monocyte % 7.6 % [facility] LABORATORY Monocyte Abs 0.5 0.3 - 0.9 x10(3)/ L [facility] Eos % 4.9 % [facility] Eosinophils Abs 0.3 0.0 - 0.4 x10(3)/[facility] LABORATORY Basophil % 1.1 % [facility] Baso Absolute 0.1 0.0 - 0.1 x10(3)/ L [facility] Immature Gran % 0.30 % [facility] Comment: Immature granulocytes(IG's)percentage and absolute count will include metamyelocytes, myelocytes, and promyelocytes. Blood smears from CBCs yielding IG's will be scanned manually for concordance. If this scan disagrees with the automated IG or if promyelocytes are noted, a manual differential will be performed. Immature Gran Absolute 0.02 0.00 - 0.04 x10(3)/mc L [facility] Blood specimen (specimen) 03/14/2019 8:53 AM EDT 03/14/2019 9:06 AM EDT Narrative Resulting Agency Comment Spec In Lab Ed Simpson MD HEMATOLOGY ORDERABLE S [facility] [place] [address] * Hemogram (03/14/2019 8:53 AM EDT) White Blood Cell 6.3 4.0 - 9.5 x10(3)/[facility] LABORATORY Red Blood Cell 5.11 4.58 - 5.54 x10(6)/[facility] LABORATORY Hemoglobin 14.9 13.7 - 16.5 gm/dL [facility] Hematocrit 44.2 40.5 - 48.5 % [facility] Mean Cell Volume 86.5 82.9 - 93.1 [facility] LABORATORY Mean Cell Hemoglobin 29.2 27.5 - 32.1 pg [facility] Mean Cell Hemoglobin Concentration 33.7 32.0 - 35.7 gm/dL [facility] Platelet 156 145 - 357 x10(3)/[facility] LABORATORY RDW Standard Deviation 40.3 36.0 - 45.0 [facility] LABORATORY RDW coefficient of variation 12.6 11.4 - 13.8 % [facility] Mean Platelet Volume 10.7 7.6 - 12.9 [facility] LABORATORY NRBC% auto 0.0 % [facility] NRBC Absolute 0.000 0.000 - 0.000 x10(3)/[facility] LABORATORY Blood specimen (specimen) 03/14/2019 8:53 AM EDT 03/14/2019 9:06 AM EDT Narrative Resulting Agency Comment Spec In Lab Ed Simpson MD HEMATOLOGY ORDERABLE S [facility] [place] [address] * Heparin (unfractionated) Level (03/14/2019 8:53 AM EDT) Pathologist [facility] UF Heparin 0.37 IU/mL [facility] Comment: Guidelines for therapeutic unfractionated [...] HEMATOLOGY ORDERABLE S Performing Organization Address [facility] Co de Phone Number [facility] [place] [address] * ECHO COMPLETE (03/14/2019 8:37 AM EDT) [facility] EF 63 HEARTLAB SYSTEM Anatomical Region Laterality Modality Other 03/14/2019 Narrative 03/14/2019 8:45 AM EDT Procedure: ?Transthoracic Echocardiogram Patient: ?LAQUITA Pop ? (Age): 1965(53y) Med Rec#: ? [id number] ?Sex: ?M ? Site Loc: ? [facility] ?Ht / Wt: ??177(cm)/101(kg) Pt. Loc: ?Adult Floor ? BSA: ?2.18 Study Date: ?? 03/14/2019 ?Pt. Type: Inpatient Tape: ? Referring: Ed Simpson Reading: Christos Buchanan ([id number]) Directional Survey Drafter: Yessi Webb [facility] Diagnosis: *Unstable angina (I20.0) BP: [...] E-wave Vmax ?0.6 ?m/sec ? MV deceleration [id number] ?msec ? MV A-wave Vmax ?0.4 ?m/sec [...] ? Mid-Inferior ?Normal ? Mid-Inferoseptal ?Normal ? Crockett-Septal ? Normal ? Crockett-Anterior ? Normal ? Crockett-Lateral ?Normal ? Crockett-Inferior ? Normal ? Crockett-Tip ?Normal ? This report has been electronically signed by: Christos Buchanan M.D. ? 03/14/2019 08:45:08 Images reviewed and interpretation verified [facility] Cardiac Ultrasound Laboratory Procedure Note Christos Buchanan MD - 03/14/2019 Procedure: Transthoracic Echocardiogram Patient: LAQUITA Pop (Age): 1965(53y) Med Rec#: [id number] Sex: M Site Loc: [facility] Ht / Wt: 177(cm)/101(kg) Pt. Loc: Adult Floor BSA: 2.18 Study Date: 03/14/2019 Pt. Type: Inpatient Tape: Referring: Ed Simpson Reading: Christos Buchanan ([id number]) Directional Survey Drafter: Yessi Webb [facility] Diagnosis: *Unstable angina (I20.0) BP: [...] MV E-wave Vmax 0.6 m/sec MV deceleration [id number] msec MV A-wave Vmax 0.4 m/sec MV [...] Normal Mid-Posterolateral Normal Mid-Inferior Normal Mid-Inferoseptal Normal Crockett-Septal Normal Crockett-Anterior Normal Crockett-Lateral Normal Crockett-Inferior Normal Cro[place]-Tip Normal This report has been electronically signed by: Christos Buchanan M.D. 03/14/2019 08:45:08 Images reviewed and interpretation verified [facility] Cardiac Ultrasound Laboratory Ed Simpson MD ECHO ORDERABLES * POCT Glucose (03/14/2019 7:42 AM EDT) Glucose, POC 102 65 - 199 mg/dL [facility] Comment: Supplemental ranges: <140 mg/dL before meals <180 mg/dL all other times of the day Blood specimen (specimen) 03/14/2019 7:42 AM EDT 03/14/2019 7:42 AM EDT Wale Mckeon MD POINT OF CARE TEST O RDERABLES Performing Organization Address [facility] Co de Phone Number [facility] [place] [address] * (ABNORMAL) Chloride (03/14/2019 3:28 AM EDT) Chloride 108(H) 98 - 107 mmol/L [facility] Blood specimen (specimen) 03/14/2019 3:28 AM EDT 03/14/2019 3:32 AM EDT Narrative Resulting Agency Comment Spec In Lab Wale Mckeon MD CHEMISTRY ORDERABLES Performing Organization Address [facility] Co de Phone Number [facility] [place] [address] * Troponin (03/14/2019 3:28 AM EDT) Pathologist [facility] Troponin-T <0.01 0.00 - 0.00 ng/mL [facility] Comment: The 99th percentile for Troponin T is less than 0.01 ng/mL, any detectable cTnT concentration using this assay should be considered elevated. According to the third universal definition of myocardial infarction the following criteria with a clinical presentation consistent with acute myocardial ischemia meets the diagnosis for a myocardial infarction ([place]). Detection of a rise and/or fall of cTnT, with at least one value greater than the 99th percentile (> or = 0.01) and with at least one of the following ?? Symptoms of ischemia ?? New or presumed new significant NA-qdszipr-Y wave (ST-T) changes or new left bundle [...] additional sample may be indicated. Reference: Third [place] Definition of Myocardial Infarction. Journal of the [place] [employer] 2012;60:1581-98 Blood specimen (specimen) 03/14/2019 3:28 AM EDT 03/14/2019 3:32 AM EDT Narrative Resulting Agency Comment Spec In Lab Wale Mckeon MD CHEMISTRY ORDERABLES Performing Organization Address [facility] Co de Phone Number [facility] [place] [address] * Sodium (03/14/2019 3:28 AM EDT) Sodium 140 135 - 145 mmol/L [facility] Blood specimen (specimen) 03/14/2019 3:28 AM EDT 03/14/2019 3:32 AM EDT Narrative Resulting Agency Comment Spec In Lab Wale Mckeon MD CHEMISTRY ORDERABLES Performing Organization Address [facility] Phone Number [facility] [place] [address] * Potassium (03/14/2019 3:28 AM EDT) Pathologist [facility] Potassium 3.7 3.5 - 5.0 mmol/L [facility] [...] Mckeon MD CHEMISTRY ORDERABLES Performing Organization Address [facility] de Phone Number [facility] [place] [address] * Heparin (unfractionated) Level (03/14/2019 2:46 AM EDT) UF Heparin 0.57 IU/mL [facility] Comment: Guidelines for therapeutic unfractionated [...] MD HEMATOLOGY ORDERABLE S Performing Organization Address City/State/[facility] Co de Phone Number [facility] [place] [address] * (ABNORMAL) Differential, Automated (03/14/2019 1:50 AM EDT) Neutrophil % 38.9 % [facility] Neutrophil Absolute 3.10 1.70 - 6.10 x10(3)/mc L [facility] Lymph % 49.6 % [facility] Lymphocytes Abs 4.0(H) 0.9 - 3.2 x10(3)/mc L [facility] Monocyte % 6.3 % [facility] Monocyte Abs 0.5 0.3 - 0.9 x10(3)/mc L [facility] Eos % 4.1 % [facility] Eosinophils Abs 0.3 0.0 - 0.4 x10(3)/mc L [facility] Basophil % 0.8 % [facility] Baso Absolute 0.1 0.0 - 0.1 x10(3)/mc L [facility] Immature Gran % 0.30 % [facility] Comment: Immature granulocytes(IG's)percentage and absolute count will include metamyelocytes, myelocytes, and promyelocytes. Blood smears from CBCs yielding IG's will be scanned manually for concordance. If this scan disagrees with the automated IG or if promyelocytes are noted, a manual differential will be performed. Immature Gran Absolute 0.02 0.00 - 0.04 x10(3)/mc L [facility] Blood specimen (specimen) 03/14/2019 1:50 AM EDT 03/14/2019 2:04 AM EDT Narrative Resulting Agency Comment Spec In Lab Ed Simpson MD HEMATOLOGY ORDERABLE S Performing Organization Address City/State/[facility] Co de Phone Number [facility] [place] [address] * Hemogram (03/14/2019 1:50 AM EDT) White Blood Cell 8.0 4.0 - 9.5 x10(3)/[facility] LABORATORY Red Blood Cell 4.98 4.58 - 5.54 x10(6)/[facility] LABORATORY Hemoglobin 15.0 13.7 - 16.5 gm/dL [facility] Hematocrit 42.4 40.5 - 48.5 % [facility] Mean Cell Volume 85.1 82.9 - 93.1 fL [facility] Mean Cell Hemoglobin 30.1 27.5 - 32.1 pg [facility] Mean Cell Hemoglobin Concentration 35.4 32.0 - 35.7 gm/dL [facility] Platelet 192 145 - 357 x10(3)/[facility] LABORATORY RDW Standard Deviation 39.9 36.0 - 45.0 [facility] LABORATORY RDW coefficient of variation 12.9 11.4 - 13.8 % [facility] Mean Platelet Volume 11.7 7.6 - 12.9 fL [facility] NRBC% auto 0.0 % [facility] NRBC Absolute 0.000 0.000 - 0.000 x10(3)/mcL [facility] Blood specimen (specimen) 03/14/2019 1:50 AM EDT 03/14/2019 2:04 AM EDT Narrative Resulting Agency Comment Spec In Lab Ed Simpson MD HEMATOLOGY ORDERABLE S Performing Organization Address [facility] Co de Phone Number [facility] [place] [address] * pro-Brain Natriuretic Peptide (03/14/2019 1:50 AM EDT) NT-proBNP 12 <=125 pg/mL [facility] Blood specimen (specimen) 03/14/2019 1:50 AM EDT 03/14/2019 2:04 AM EDT Narrative Resulting Agency Comment Spec In Lab Ed Simpson MD CHEMISTRY ORDERABLES Performing Organization Address [facility] Co de Phone Number [facility] [place] [address] * Magnesium (03/14/2019 1:50 AM EDT) Magnesium 0.81 0.69 - 1.07 mmol/L [facility] Blood specimen (specimen) 03/14/2019 1:50 AM EDT 03/14/2019 2:04 AM EDT Narrative Resulting Agency Comment Spec In Lab Ed Simpson MD CHEMISTRY ORDERABLES Performing Organization Address [facility] Co de Phone Number [facility] [place] [address] * (ABNORMAL) BMP w/fasting Glucose (03/14/2019 1:50 AM EDT) Glucose Fasting 110(H) 65 - 99 mg/dL [facility] [...] of Diabetes Mellitus, Position Statement from the [place] [employer]. ??Diabetes Care, Volume 33, Supplement 1, Aug 2009 Blood Urea Nitrogen 10 10 - 20 mg/dL [facility] Creatinine 1.00 0.80 - 1.50 mg/dL [facility] Sodium Not Perf 135 - 145 [facility] Potassium Not Perf 3.5 - 5.0 [facility] Comment: Called by: [facility], Read back by: Keeley Arias, Date/Time:03/14/19 03:03. Please note: ??Patients with WBC >100,000 may have falsely elevated Potassium levels. ??For accurate Potassium quantification in these patients send serum separator tube (gold top) for subsequent determinations. ??Contact the Clinical Chemistry Laboratory if there are any questions. Chloride Not Perf 98 - 107 [facility] Carbon Dioxide 22 22 - 31 mmol/L [facility] Anion Gap Unable to Calculate 5 - 15 mmol/L [facility] Calcium 8.5 8.5 - 10.5 mg/dL [facility] Est Glomerular Filtration Rate 87 >=60 mL/min/1 .73 m?? [facility] Comment: The eGFR was calculated using the CKD-EPI equation. As with all creatinine based estimates of kidney function, eGFR values calculated with the CKD-EPI equation are not accurate in patients with acute kidney failure, extremes of body mass or the acutely ill. [email or web address] eGFR 101 >=60 mL/min/1 .73 m?? [facility] Comment: The eGFR was calculated using the CKD-EPI equation. As with all creatinine based estimates of kidney function, eGFR values calculated with the CKD-EPI equation are not accurate in patients with acute kidney failure, extremes of body mass or the acutely ill. [email or web address] Blood specimen (specimen) 03/14/2019 1:50 AM EDT 03/14/2019 2:04 AM EDT Narrative Resulting Agency Comment Spec In Lab Ed Simpson MD CHEMISTRY ORDERABLES Performing Organization Address [facility] [place] Co de Phone Number [facility] [place] [address] * EKG 12 Lead (03/14/2019 1:06 AM EDT) Ventricular rate 63 BPM MUSE SYSTEM Atrial Rate 63 BPM MUSE SYSTEM P-R Interval 146 ms MUSE SYSTEM QRS Duration 84 ms MUSE SYSTEM Q-T Interval 384 ms MUSE SYSTEM QTC Calculated (Bezet) 392 ms MUSE SYSTEM Calculated P Fife 28 degrees MUSE SYSTEM Calculated R Fife 21 degrees MUSE SYSTEM Calculated T Fife 18 degrees MUSE SYSTEM INTERPRETATION Normal sinus rhythm Normal ECG When compared with ECG of 13-SEP-2017 07:49, No significant change was found Confirmed by MD NAZANIN, DEISY ([id number]) on 03/14/2019 9:49:11 AM MUSE SYSTEM 03/14/2019 1:06 AM EDT 03/14/2019 9:49 AM EDT Ed Simpson MD ECG ORDERABLES Performing Organization Address [facility] de Phone Number MUSE SYSTEM [...] Reason: Transfer to a Procedural area)1133 ([facility] Unhold - Provider: Admin Adt) cyclobenzaprine (FLEXERIL) tablet 10 mg 10 mg, Oral, NIGHTLY, First dose on Thu03/14/19 at 2100, Until Discontinued, Routine 1003 ([facility] Hold - [...] Arias RN) 213 (Given - Provider: Beverly Chna RN) Continuous Medication Order 03/14/2019 03/15/2019 03/16/2019 [...] Reason: Transfer to a Procedural area)1133 ([facility] Unhold - [...] Reason: Transfer to a Procedural area)1133 ([facility] Unhold - [...] 24 to 72 hours., Routine 1003 ([facility] Hold - Provider: Admin Adt - Reason: Transfer to a Procedural area)1133 ([facility] Unhold - [...] (Given - Provider: Keeley Arias, VERO)1003 ([facility] Hold - Provider: Admin Adt - Reason: Transfer to a Procedural area)1133 ([facility] Unhold - Provider: Admin Adt)1950 [...] on this medication record., Routine 1003 ([facility] Hold - Provider: Admin Adt - Reason: Transfer to a Procedural area)1133 ([facility] Unhold - Provider: Admin Adt) sodium chloride 0.9 % (flush) flush 5-20 mL 5-20 mL, Intravenous, EVERY 1 MIN PRN, Starting on Thu03/14/19 at 0219, Until Thu03/16/19 at 1756, flush, Flush pertains to all indwelling lines. Flush per protocol found in the job aid using the link provided on this medication record., Routine 1003 ([facility] Hold - Provider: Admin Adt - Reason: Transfer to a Procedural area)1133 ([facility] Unhold - [...] Routine documented in this encounter Care Teams Steam Room Attendant Relationship Specialty Start Date End Date Coni Lim MD [address] [place] [address] PCP - General 07/16/10 documented as of this encounter
--- OUTSIDE RECORDS SUMMARY | 2024-08-19 14:53 | XMS_ITS | Encounter Summary ---
Author Organization [facility] [place] [address] Care Team Providers Care Guide Changer Name Role Phone Coni Lim MD Primary Care Provider [phone] Reason for Visit * Reason Comments Chest Pain * Auth/Cert Specialty Diagnoses / Procedures Referred By Contac t Referred To Contact Diagnoses Unstable angina chest pain Referral ID Status Reason Start Date Expiration Date Visits Re quested Visits Authorized [id number] 1 1 Encounter Details Date Type Department Care Team (Late st Contact Info) Description 09/12/2017 12:10 PM EST - 09/14/2017 11:12 AM EST Emergency Inter[place] [id number] Buster Doherty, [facility] [place] [address] Christos Buchanan MD Coronary artery disease, angina presence unspecified, unspecified vessel or lesion type, unspecified whether skull valley or transplanted heart; Atherosclerosis of skull valley coronary artery with unstable angina pectoris, unspecified whether skull valley or transplanted heart Discharge Disposition: Home Social [...] AM EST Discharge Summary Patient Name: Romeo Coelho Patient Age: 52 y.o. Language: Macanese Race: White Ethnicity: Not nor Admit date: [...] please contact your inpatient physician through the [facility] Data Analysis Manager . Issues afterhours and on weekends will be handled by the director client on-call. Discharge Diagnoses (Hospital Problems) and Secondary [...] Major Procedures: None History of Presentation: Romeo Coelho is a 52 y.o. male with known [...] restenosis addressed with LAD stent angioplasty at [facility] in January 2014 (ABSORB Stent) 75% [...] patient to come to the hospital today. Lift Driver is Dr. Vyas. ?? Currently, he watches [...] lightheadedness/presyncopal symptoms. He will follow-up with his general handling supervisor, Dr. Vyas, approximately 1 week as an [...] PF, Split 07/30/2013 ??? Influenza Vaccine (Novel) [id number], Injectable 05/24/2009 ??? Influenza Vaccine w/Preservative, Split [...] Discharge References/Attachments PCI (PERCUTANEOUS CORONARY INTERVENTION): POST-OP (AZERBAIJANI) documented in this encounter Discharge Instructions * [...] Coni Lim MD , PCP [address] / [place] [address] 09/22/2017, 10:30 AM Florian Ling MD, Lift Driver GLORIA Silverman Your Inpatient Doctor(s) at [facility]: Christos Buchanan MD Daniel Storms, MD Sean Li, MD Jeffrey R Wunderlich, MD Your Primary Care Provider: Coni Lim MD [address] / [place] [address] For questions regarding this document or issues relating to this hospitalization on the Medical Service, please contact your inpatient physician through the [facility] Data Analysis Manager . Issues afterhours and on weekends will be handled by the Hospitalist staff on-call. * Attachments The following attachments cannot be sent through Care Everywhere. * PCI (PERCUTANEOUS CORONARY INTERVENTION): POST-OP (AZERBAIJANI) documented in this encounter Medications at Time [...] Note/Day of discharge note Patient Name: Romeo Coelho Date of Admission: 09/12/2017 ( Hospital Day 0 days ) Service: S2 ID: Romeo Coelho is a 52 y.o. male with known [...] 0.9 %, lidocaine, nitroGLYcerin, acetaminophen Assessment: Romeo Coelho is a 52 y.o. male with known ASCVD ( last stent to prox 75% RCA in 12/08), preservedEF (EF 60% in 2017), HTN, DM2, current smoker, family history of heart disease, presented to ED with subacute chest pain initially with exertion progressing to include at rest. Mr. Coelho was seen and evaluated today, and determined [...] Pierson MD, PGY-1 Cardiology Service Pager # [phone] * Aida Dietrich MSW - 09/13/2017 2:23 PM EST Notified by Care Management Utilization Management (UM) Department that patient remains in observation status and anticipated length of stay will be greater than 24 hours. Medicare Outpatient Observation Notice (CEBALLOS) has been given and explained to Romeo Coelho. Questions were answered to the best of my ability. Mr. Coelho was offered copies of CMS publications; Are You a Hospital Inpatient or Outpatient? and Medicare Rights and Protections. Notice has been signed along with date and time, a copy of notice made and given to patient/medical sales representative. Original notice to be scanned [...] to follow. AGUSTO BALL II, MD * [place] MD - 09/13/2017 10:37 AM EST Inpatient Cardiology Progress Note Patient Name: Romeo Coelho Date of Admission: 09/12/2017 ( Hospital Day 0 days ) Service: S2 ID: Romeo Coelho is a 52 y.o. male with known [...] Oral Nightly ??? heparin (porcine) 1,400 Units/hr (09/13/17721) heparin (porcine) AND heparin (porcine), cyclobenzaprine, oxyCODONE, sodium chloride 0.9 %, lidocaine, nitroGLYcerin, acetaminophen Assessment: Romeo Coelho is a 52 y.o. male with known [...] 5:31 PM EST Patient arrived to [facility] via stretcher from ED s/p chest [...] Buchanan MD PCP: Coni Lim MD PCP#: [phone] CC: Chest Pain Patient Active Problem List Diagnosis Code ??? Dyslipidemia E78.5 ??? GERD (gastroesophageal reflux disease) K21.9 ??? HTN (hypertension) I10 ??? DM (diabetes mellitus) E11.9 ??? Smoker F17.200 ??? CAD (coronary artery disease) I25.10 ??? Hx-TIA (transient ischemic attack) Z86.73 ??? Chest pain R07.9 ??? Unstable angina I20.0 History of Present Illness: Romeo Coelho is a 52 y.o. male with known [...] restenosis addressed with LAD stent angioplasty at [facility] in January 2014 (ABSORB Stent) 75% [...] patient to come to the hospital today. Lift Driver is Dr. Vyas. Currently, he watches his [...] Myocardial Infarction Father 46 MS, CABG ??? Diabetes Mother [...] son (age 18 months), daughter 11 in [place], [place]. Takes care of his mother who has dementia and he takes her to dialysis. is disabled. Has grown daughter who is 29 years old. 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 Physical Exam: Vitals: Most Recent Vitals: [...] restenosis addressed with LAD stent angioplasty at [facility] in January 2014 (ABSORB Stent) 75% RCA stented in 11/2016 Assessment: Romeo Coelho is a 52 y.o. male with known [...] MD - 09/12/2017 1:08 PM EST Romeo Coelho is an 52 y.o. male who presents to the ED with: Chief Complaint Patient presents with ??? Chest Pain I saw this patient at 1:08 PM History of Present Illness Romeo Coelho is a 52 y.o. male with h/o [...] two days ago. Patient has contacted his general handling supervisor who advised to presentto the ED. He [...] ASA, heparin MDM and A/P MDM: Romeo Coelho is a 52 y.o. male who presented [...] Emergency Medicine *This note was dictated with Capture Media software. Molly Mayer MD Resident 09/12/17 1713 [...] Within the Past 30 Days: None at [facility], nor at outside hospitals, per pt's report. 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 I've been disabled for five years due to Fibromyalgia and Arthritis. Home Environment: Lives with his , Dasia in [place], [place]. Social & Family Supports/Community Resources: , Friends, neighbors Dasia Coelho (Spouse) [address] [facility] [phone] (H) [phone] (M) Behavioral Health History: Per pt report, has Anxiety and Depression, (on Cymbalta and Wellbutrin). Substance Use/Abuse: Current every day smoker; 1-5 cigarettes a day. EtOH: None. Illicit Drug Use: Marijuana every day, medical use. Other Pertinent/Service Specific Information: None Health/Prescription Coverage: Primary Insurance: MEDICARE PART A & B Secondary Insurance: MEDICAID [place] Prescription Coverage: Yes, has Silver Script. Preferred Pharmacy: [id number] - [place], [place] - [address] ? [address] [facility] [id number] ? Not a 24 hour pharmacy; exact hours not known Other: None Primary Care Provider: Coni Lim MD [phone] Patient/Caregiver Goals of Treatment: To return home and to his normal activities. Potential Needs for Transition of Care: Rehab/SNF: Pt has never been a pt in a rehab setting. Home Health: [facility] in the past (after right [...] transition of care planning. TIMBO Barrett Pager: [phone] * Plan of Care - Keisha Mae [...] Outcome: Ongoing (Interventions Implemented as Appropriate) 09/13/1735409/13/17 0600 Discharge Needs Assessment Concerns To Be [...] tele. Cont to monitor. PLAN MOVING FORWARD: chemical laboratory chief echo INDIVIDUALIZED FALL PREVENTION INTERVENTIONS: Patient-specific fall [...] Ongoing (Interventions Implemented as Appropriate) 09/13/17 035 Discharge Needs Assessment Concerns To Be Addressed denies needs/concerns at this time Discharge Disposition still a patient Goal: Interdisciplinary Rounds/Family Conf Outcome: Ongoing (Interventions Implemented as Appropriate) 09/13/17 0355 Interdisciplinary Rounds/Family Conf Participants nursing;patient;physician * ED Triage - Keeley Rose RN - 09/12/2017 12:11 PM EST Pt with 1 month of chest pressure, told by general handling supervisor that if he decided to be seen [...] METABOLIC PANEL Routine 09/14/2017 3:40 AM EST NATURAL FOODS CLERK SCAN 09/14/2017 12:00 AM EST POCT GLUCOSE Routine 09/13/2017 7:50 PM EST POCT GLUCOSE Routine 09/13/2017 4:58 PM EST ECHO LMTD W/O CONTRAST W LMTD SPEC DOPP COLOR DOPP Routine 09/13/2017 2:44 PM EST Coronary artery disease, angina presence unspecified, unspecified vessel or lesion type, unspecified whether skull valley or transplanted heart POCT GLUCOSE Routine 09/13/2017 11:32 AM EST CARDIAC CATHETERIZATION Routine 09/13/19 11:09 AM EST EKG 12-LEAD STAT 09/13/2017 7:49 AM EST Coronary artery disease, angina presence unspecified, unspecified vessel or lesion type, unspecified whether skull valley or transplanted heart POCT GLUCOSE Routine 09/13/2017 [...] Routine 09/13/2017 6:32 AM EST CARDIAC ENZYMES ([facility]) STAT 09/13/2017 12:13 AM EST APTT STAT 09/13/2017 12:13 AM EST CARDIAC CATH SCAN 09/13/2017 12: 00 AM EST POCT GLUCOSE Routine 09/12/2017 9:14 PM EST CARDIAC ENZYMES ([facility]) STAT 09/12/2017 6:53 PM EST XR CHEST PA AND LATERAL STAT 09/12/19 2:02 PM EST HEMOGRAM STAT 09/12/2017 1:29 PM EST DIFFERENTIAL, AUTOMATED STAT 09/12/19 18 1:29 PM EST GOLD TUBE HOLD STAT [...] * POCT Glucose (09/14/2017 7:32 AM EST) Pathologist [facility] Glucose, POC 158 65 - 199 mg/dL [facility] Comment: Supplemental ranges: <140 mg/dL before meals <180 mg/dL all other times of the day Blood specimen (specimen) 09/14/2017 7:32 AM EST 09/14/2017 7:32 AM EST Christos Buchanan MD POINT OF CARE TEST O RDERABLES [facility] [place] [address] * Differential, Automated (09/14/2017 3:40 AM EST) Pathologist [facility] Neutrophil % 51.2 % [facility] Neutrophil Absolute 4.61 1.70 - 6.10 x10(3)/[facility] LAB[facility] Lymph % 34.3 % [facility] Lymphocytes Abs 3.1 0.9 - 3.2 x10(3)/[facility] Monocyte % 8.6 % [facility] Monocyte Abs 0.8 0.3 - 0.9 x10(3)/[facility] Eos % 4.6 % [facility] Eosinophils Abs 0.4 0.0 - 0.4 x10(3)/[facility] Basophil % 0.9 % [facility] Baso Absolute 0.1 0.0 - 0.1 x10(3)/[facility] Immature Gran % 0.40 % [facility] Comment: Immature granulocytes(IG's)percentage and absolute count will include metamyelocytes, myelocytes, and promyelocytes. Blood smears from CBCs yielding IG's will be scanned manually for concordance. If this scan disagrees with the automated IG or if promyelocytes are noted, a manual differential will be performed. Immature Gran Absolute 0.04 0.00 - 0.04 x10(3)/[facility] Blood specimen (specimen) 09/14/2017 3:40 AM EST 09/14/2017 4:08 AM EST Narrative Resulting Agency Comment Spec In Lab Christos Buchanan MD HEMATOLOGY ORDERABLE S [facility] [place] [address] * Hemogram (09/14/2017 3:40 AM EST) [facility] White Blood Cell 9.0 4.0 - 9.5 x10(3)/[facility] Red Blood Cell 5.28 4.58 - 5.54 x10(6)/[facility] Hemoglobin 15.0 13.7 - 16.5 gm/dL [facility] Hematocrit 45.8 40.5 - 48.5 % [facility] Mean Cell Volume 86.7 82.9 - 93.[address] [facility] Mean Cell Hemoglobin 28.4 27.5 - 32.[address] [facility] Mean Cell Hemoglobin Concentration 32.8 32.0 - 35.7 gm/dL [facility] Platelet 188 145 - 357 x10(3)/[facility] RDW Standard Deviation 43.6 36.0 - 45.0 [facility] RDW coefficient of variation 13.7 11.4 - 13.8 % [facility] Mean Platelet Volume 10.4 7.6 - 12.9 [facility] NRBC% auto 0.0 % [facility] NRBC Absolute 0.000 0.000 - 0.000 x10(3)/[facility] Blood specimen (specimen) 09/14/2017 3:40 AM EST 09/14/2017 4:08 AM EST Narrative Resulting Agency Comment Spec In Lab Christos Buchanan MD HEMATOLOGY ORDERABLE S [facility] [place] [address] * Prothrombin Time (09/14/2017 3:40 AM EST) Prothrombin Time 13.3 11.8 - 14.[address] [facility] International Normalization Ratio 1.0 0.9 - 1.1 [facility] Comment: An INR <2.0 indicates [...] ORDERABLE S Performing Organization Address [facility] Co de Phone Number [facility] [place] [address] * Magnesium (09/14/2017 3:40 AM EST) Magnesium 0.83 0.69 - 1.07 mmol/L [facility] Blood specimen (specimen) 09/14/2017 3:40 AM EST 09/14/2017 4:08 AM EST Narrative Resulting Agency Comment Spec In Lab Christos Buchanan MD CHEMISTRY ORDERABLES Performing Organization Address [facility] de Phone Number [facility] [place] [address] * Basic Metabolic Panel (non-fasting) (09/14/2017 3:40 AM EST) Glucose 108 65 - 199 mg/dL [facility] Comment:Diabetes: >=200 mg/d L plus symptoms Blood Urea Nitrogen 11 10 - 20 mg/dL [facility] Creatinine 1.05 0.80 - 1.50 mg/dL [facility] Sodium 143 135 - 145 mmol/L [facility] Potassium 4.0 3.5 - 5.0 mmol/L [facility] Comment: Please note: ??Patients with WBC >100,000 may have falsely elevated Potassium levels. ??For accurate Potassium quantification in these patients send serum separator tube (gold top) for subsequent determinations. ??Contact the Clinical Chemistry Laboratory if there are any questions. Chloride 106 98 - 107 mmol/L [facility] Carbon Dioxide 22 22 - 31 mmol/L [facility] Anion Gap 15 5 - 15 mmol/L [facility] Calcium 9.2 8.5 - 10.5 mg/dL [facility] Est Glomerular Filtration Rate >60 >=60 [facility] Comment: The reported eGFR should be multiplied by 1.2 for patients. The MDRD is not an appropriate measure of renal function for patients with body mass extremes or in patients with acute kidney failure. http://[employer]/DHnkdep http://[employer]/DHMCnkf Blood specimen (specimen) 09/14/2017 3:40 AM EST 09/14/2017 4:08 AM EST Narrative Resulting Agency Comment Spec In Lab Christos Buchanan MD CHEMISTRY ORDERABLES Performing Organization Address [facility] de Phone Number [facility] [place] [address] * SCAN DOC: NATURAL FOODS CLERK (09/14/2017 12:00 AM EST) Anatomical Region Laterality Modality Other Narrative 09/14/2017 12:00 AM EST Ordered by an unspecified provider. Scanning Provider MEDIA MGR SCAN EXT O RDR/RSLT * POCT Glucose (09/13/2017 7:50 PM EST) Glucose, POC 113 65 - 199 mg/dL [facility] Comment: Supplemental ranges: <140 mg/dL before meals <180 mg/dL all other times of the day Blood specimen (specimen) 09/13/2017 7:50 PM EST 09/13/2017 7:50 PM EST Christos Buchanan MD POINT OF CARE TEST O RDERABLES Performing Organization Address [facility] de Phone Number [facility] [place] [address] * POCT Glucose (09/13/2017 4:58 PM EST) Glucose, POC 138 65 - 199 mg/dL [facility] Comment: Supplemental ranges: <140 mg/dL before meals <180 mg/dL all other times of the day Blood specimen (specimen) 09/13/2017 4:58 PM EST 09/13/2017 4:58 PM EST Christos Buchanan MD POINT OF CARE TEST O RDERABLES [facility] [place] [address] * ECHO LMTD W/O CONTRAST W LMTD SPEC DOPP COLOR DOPP (09/13/2017 2:44 PM EST) EF 65 HEARTLAB SYSTEM Anatomical Region Laterality Modality Other 09/13/2017 Narrative 09/13/2017 3:16 PM EST Procedure: ?Transthoracic Echocardiogram Patient: ?COELHOCOLE Pop ? (Age): 1965(52y) Med Rec#: ? [id number] ?Sex: ?M ? Site Loc: ? [facility] ?Ht / Wt: ??180.3(cm)/101.6 Pt. Loc: ?Adult Floor ? BSA: ?2.21 Study Date: ?? 09/13/2017 ?Pt. Type: Outpatient Tape: ? Referring: Christos Buchanan ([id number]) Reading: hCristos Buchanan ([id number]) Animal Control Specialist: Meaghan Kim Diagnosis: *ICD-10-PCS Atherosclerotic heart disease of skull valley coronary artery without angina pectoris (I25.10) BP: [...] E-wave Vmax ?0.6 ?m/sec ? MV deceleration qudr643.5 ?msec ? MV A-wave Vmax ?0.5 ?m/sec [...] ? Mid-Inferior ?Normal ? Mid-Inferoseptal ?Normal ? [place]-Septal ? Normal ? [place]-Anterior ? Normal ? [place]-Lateral ?Normal ? [place]-Inferior ? Normal ? [place]-Tip ?Normal ? This report has been electronically signed by: Christos Buchanan M.D. ? 09/13/2017 15:16:25 Images reviewed and interpretation verified [facility] Cardiac Ultrasound [facility] Procedure Note Christos Buchanan MD - 09/13/2017 Procedure: Transthoracic Echocardiogram Patient: LAQUITA Pop (Age): 1965(52y) Med Rec#: [id number] Sex: M Site Loc: [facility] Ht / Wt: 180.3(cm)/101.6 Pt. Loc: Adult Floor BSA: 2.21 Study Date: 09/13/2017 Pt. Type: Outpatient Tape: Referring: Christos Buchanan ([id number]) Reading: Christos Buchanan ([id number]) Animal Control Specialist: Meaghan Kim Diagnosis: *ICD-10-PCS Atherosclerotic heart disease of skull [place] coronary artery without angina pectoris (I25.10) BP: [...] MV E-wave Vmax 0.6 m/sec MV deceleration qlfa896.5 msec MV A-wave Vmax 0.5 m/sec MV [...] Normal Mid-Posterolateral Normal Mid-Inferior Normal Mid-Inferoseptal Normal [place]-Septal Normal [place]-Anterior Normal [place]-Lateral Normal [place]-Inferior Normal [place]-Tip Normal This report has been electronically signed by: Christos Buchanan M.D. 09/13/2017 15:16:25 Images reviewed and interpretation verified [facility] Christos Buchanan MD ECHO ORDERABLES * POCT Glucose (09/13/2017 11:32 AM EST) Glucose, POC 104 65 - 199 mg/dL [facility] Comment: Supplemental ranges: <140 mg/dL before meals <180 mg/dL all other times of the day Blood specimen (specimen) 09/13/2017 11:32 AM EST 09/13/2017 11:32 AM EST Christos Buchanan MD POINT OF CARE TEST O RDERABLES Performing Organization Address City/State/[facility] Co de Phone Number [facility] [place] [address] * CARDIAC CATHETERIZATION (09/13/2017 11:09 AM EST) Anatomical Region Laterality Modality Other Narrative 09/13/2017 11:33 AM EST ?[facility] ? Cardiac Catheterization/Intervention Report ? Patient Name: Romeo Coelho. ? Procedure Date: 09/13/2017 ? A #: [id number] ? Primary Physician: Agusto Ball ? Case #: [id number] ? File Name: [id number] ? Catheterization Order Number: [id number] ? [facility]Optical Laboratory [facility] ? Final Report [place], [place] ? Patient Name: ? Romeo A. Coelho ? ID#: ?[id number] ? : ?1965 ? Procedure Date: ? [...] ?* Access Site Angiography ? History ?Romeo Coelho is a 52 year old man. He [...] presented with: unstable angina (w/i 60 days). [place] ?Cardiovascular Society angina class was IV. This [...] Note Agusto Ball II, MD - 09/14/2017 [facility] Cardiac Catheterization/Intervention Report Patient Name: Romeo Coelho Procedure Date: 09/13/2017 A #: [id number] Primary Physician: Agusto Ball Case #: [id number] File Name: [id number] Catheterization Order Number: [id number] [facility] FinalReport [place], [place] Patient Name: Romeo Coelho ID#:[id number] :1965 Procedure Date: September 13, 2017 Case #: [id number] Room: 5 Case Physician: Agusto Ball M.D. Start: 10:10 Fellow: Macey Salamanca M.D. Admission:09/13/2017 Referring Physician: Coni Lim M.D. Procedures: * Coronary Angiography * Left Heart Catheterization * Coronary Instantaneous Wave-Free Ratio (iFR) * Vascular Closure Device Deployment * Access Site Angiography History Romeo Coelho is a 52 year old man. He [...] presented with: unstable angina (w/i 60 days). [place] [employer] angina class was IV. This [...] (Bezet) 416 ms MUSE SYSTEM Calculated P [place] 5 degrees MUSE SYSTEM Calculated R [place] 23 degrees MUSE SYSTEM Calculated T [place] 28 degrees MUSE SYSTEM INTERPRETATION Normal sinus rhythm Normal ECG When compared with ECG of 12-SEP-2017 12:19, No significant change was found Confirmed by MD Segundo, Panda Leyva ([id number]) on 09/14/2017 9:09:15 AM MUSE SYSTEM 09/13/2017 7:49 AM EST 09/14/2017 9:09 AM EST Christos Buchanan MD ECG ORDERABLES MUSE SYSTEM * POCT Glucose (09/13/2017 7:24 AM EST) Glucose, POC 152 65 - 199 mg/dL [facility] Comment: Supplemental ranges: <140 mg/dL before meals <180 mg/dL all other times of the day Blood specimen (specimen) 09/13/2017 7:24 AM EST 09/13/2017 7:24 AM EST Christos Buchanan MD POINT OF CARE TEST O RDERABLES [facility] [place] [address] * (ABNORMAL) BMP w/fasting Glucose (09/13/2017 6:32 AM EST) [facility] Glucose Fasting 157(H) 65 - 99 mg/dL [facility] [...] of Diabetes Mellitus, Position Statement from the [place] Diabetes [employer]. ??Diabetes Care, Volume 33, Supplement 1, Aug 2009 Blood Urea Nitrogen 11 10 - 20 mg/dL [facility] Creatinine 0.99 0.80 - 1.50 mg/dL [facility] Sodium 142 135 - 145 mmol/L [facility] Potassium 3.7 3.5 - 5.0 mmol/L [facility] Comment: Please note: ??Patients with WBC >100,000 may have falsely elevated Potassium levels. ??For accurate Potassium quantification in these patients send serum separator tube (gold top) for subsequent determinations. ??Contact the Clinical Chemistry Laboratory if there are any questions. Chloride 106 98 - 107 mmol/L [facility] Carbon Dioxide 21(L) 22 - 31 mmol/L [facility] Anion Gap 15 5 - 15 mmol/L [facility] Calcium 9.4 8.5 - 10.5 mg/dL [facility] Est Glomerular Filtration Rate >60 >=60 [facility] Comment: The reported eGFR should be multiplied by 1.2 for patients. The MDRD is not an appropriate measure of renal function for patients with body mass extremes or in patients with acute kidney failure. http://[employer]/DHnkdep http://[employer]/[facility] Blood specimen (specimen) 09/13/2017 6:32 AM EST 09/13/2017 6:41 AM EST Narrative Resulting Agency Comment Spec In Lab Christos Buchanan MD CHEMISTRY ORDERABLES Performing Organization Address [facility] Co de Phone Number [facility] [place] [address] * (ABNORMAL) APTT (09/13/2017 6:32 AM EST) [facility] Partial Thromboplastin Time 113(H) 25 - [address] [facility] Comment: The recommended therapeutic range for full dose, unfractionated heparin at [facility] is 80 ? 114 seconds. The use of the anti-Xa (heparin) level rather than the PTT is recommended for monitoring anticoagulation intensity in critically ill patients receiving unfractionated heparin by continuous IV infusion. Blood specimen (specimen) 09/13/2017 6:32 AM EST 09/13/2017 6:41 AM EST Narrative Resulting Agency Comment Spec In Lab Christos Buchanan MD HEMATOLOGY ORDERABLE S Performing Organization Address [facility] Co de Phone Number [facility] [place] [address] * Differential, Automated (09/13/2017 6:32 AM EST) [facility] Neutrophil % 64.9 % [facility] Neutrophil Absolute 5.94 1.70 - 6.10 x10(3)/[facility] LAB[facility] Lymph % 24.7 % [facility] Lymphocytes Abs 2.3 0.9 - 3.2 x10(3)/[facility] LABOR[facility] Monocyte % 5.3 % [facility] Monocyte Abs 0.5 0.3 - 0.9 x10(3)/[facility] LABOR[facility] Eos % 4.0 % [facility] Eosinophils Abs 0.4 0.0 - 0.4 x10(3)/[facility] LAB[facility] Basophil % 0.7 % [facility] Baso Absolute 0.1 0.0 - 0.1 x10(3)/[facility] LABORATORY Immature Gran % 0.40 % [facility] Comment: Immature granulocytes(IG's)percentage and absolute count will include metamyelocytes, myelocytes, and promyelocytes. Blood smears from CBCs yielding IG's will be scanned manually for concordance. If this scan disagrees with the automated IG or if promyelocytes are noted, a manual differential will be performed. Immature Gran Absolute 0.04 0.00 - 0.04 x10(3)/[facility] LAB[facility]ORY Blood specimen (specimen) 09/13/2017 6:32 AM EST 09/13/2017 6:41 AM EST Narrative Resulting Agency Comment Spec In Lab Christos Buchanan MD HEMATOLOGY ORDERABLE S [facility] [place] [address] * Hemogram (09/13/2017 6:32 AM EST) White Blood Cell 9.2 4.0 - 9.5 x10(3)/[facility] LAB[facility] Red Blood Cell 5.29 4.58 - 5.54 x10(6)/[facility] Hemoglobin 15.4 13.7 - 16.5 gm/dL [facility] Hematocrit 44.9 40.5 - 48.5 % [facility] Mean Cell Volume 84.9 82.9 - 93.[address] [facility] Mean Cell Hemoglobin 29.1 27.5 - 32.[address] [facility] Mean Cell Hemoglobin Concentration 34.3 32.0 - 35.7 gm/dL [facility] Platelet 186 145 - 357 x10(3)/[facility] LABORATORY RDW Standard Deviation 42.9 36.0 - 45.0 [facility] LABORATORY RDW coefficient of variation 13.8 11.4 - 13.8 % [facility] Mean Platelet Volume 10.3 7.6 - 12.9 [facility] LABORATORY NRBC% auto 0.0 % [facility] NRBC Absolute 0.000 0.000 - 0.000 x10(3)/[facility] Blood specimen (specimen) 09/13/2017 6:32 AM EST 09/13/2017 6:41 AM EST Narrative Resulting Agency Comment Spec In Lab Christos Buchanan MD HEMATOLOGY ORDERABLE S Performing Organization Address [facility] Co de Phone Number [facility] [place] [address] * Blood culture (09/13/2017 6:32 AM EST) Blood Culture No growth at [address] [facility] Blood specimen (specimen) 09/13/2017 6:32 AM EST 09/13/2017 7:17 AM EST Comment:L FOREARM Narrative Resulting Agency Comment Spec In Lab Christos Buchanan MD MICROBIOLOGY - BLOOD ORDERABLES Performing Organization Address [facility] Co de Phone Number [facility] [place] [address] * Prothrombin Time (09/13/2017 6:32 AM EST) Prothrombin Time 13.8 11.8 - 14.[address] [facility] International Normalization Ratio 1.1 0.9 - 1.1 [facility] Comment: An INR <2.0 indicates [...] ORDERABLE S Performing Organization Address [facility]/ZIP Co de Phone Number [facility] [place] [address] * Magnesium (09/13/2017 6:32 AM EST) Magnesium 0.84 0.69 - 1.07 mmol/L [facility] Blood specimen (specimen) 09/13/2017 6:32 AM EST 09/13/2017 6:41 AM EST Narrative Resulting Agency Comment Spec In Lab Christos Buchanan MD CHEMISTRY ORDERABLES Performing Organization Address [facility] Co de Phone Number [facility] [place] [address] * Triglyceride (09/13/2017 6:32 AM EST) Triglyceride 153 <=199 mg/dL [facility] Blood specimen (specimen) 09/13/2017 6:32 AM EST 09/13/2017 6:41 AM EST Narrative Resulting Agency Comment Spec In Lab Christos Buchanan MD CHEMISTRY ORDERABLES Performing Organization Address [facility] Co de Phone Number [facility] [place] [address] * HDL/Cholesterol Profile (09/13/2017 6:32 AM EST) Cholesterol, Total 162 <=239 mg/dL [facility] HDL Cholesterol 44 >=40 mg/dL [facility] Cholesterol/HDL Ratio 3.[address] [facility] Chol/HDL Interpretation See Note [facility] Comment: Lipid management should be guided by a patient? s ASCVD risk, goals and preferences. ACC/AHA Guidelines recommend high intensity statin if clinical ASCVD or LDL greater than or equal to 190 mg/dL. http://Vputi.com/QKJ-RGG-Rrlgrngan Measure LDL if Total Cholesterol minus HDL Cholesterol is greater than 220 mg/dL. Adults aged 40-75 with LDL 70-189 mg/dL should have their 10 year ASCVD risk estimated with the ACC/AHA ASCVD risk council member http://tools.acc.org/PGLXB-Wfkf-Brbrmvpzo/ Statin should be discussed if risk greater [...] Buchanan MD CHEMISTRY ORDERABLES Performing Organization Address [facility] Co de Phone Number [facility] [place] [address] * LDL Cholesterol, Direct (09/13/2017 6:32 AM EST) LDL Cholesterol, Direct 102 <=190 mg/dL [facility] Blood specimen (specimen) 09/13/2017 6:32 AM EST 09/13/2017 6:41 AM EST Narrative Resulting Agency Comment Spec In Lab Christos Buchanan MD CHEMISTRY ORDERABLES Performing Organization Address City/[facility]/ZIP Co de Phone Number [facility] [place] [address] * (ABNORMAL) Hemoglobin A1c (09/13/2017 6:32 AM EST) Hemoglobin A1c 6.4(H) 4.3 - 5.6 % [facility] [...] Mellitus, Diabetes Care 2013; 36: Suppl. 1, S67-37 Estimated Average Glucose 137 mg/dL [facility] Comment: eAG [...] into estimated average glucose values. ??Diabetes Care 2008:31(8):7004-1683. Blood specimen (specimen) 09/13/2017 6:32 AM EST 09/13/2017 6:41 AM EST Narrative Resulting Agency Comment Spec In Lab Christos Buchanan MD CHEMISTRY ORDERABLES Performing Organization Address [facility] Co de Phone Number [facility] [place] [address] * pro-Brain Natriuretic Peptide (09/13/2017 6:32 AM EST) NT-proBNP 15 <=125 pg/mL [facility] Blood specimen (specimen) 09/13/2017 6:32 AM EST 09/13/2017 6:41 AM EST Narrative Resulting Agency Comment Spec In Lab Christos Buchanan MD CHEMISTRY ORDERABLES Performing Organization Address [facility] de Phone Number [facility] [place] [address] * (ABNORMAL) APTT (09/13/2017 12:13 AM EST) Partial Thromboplastin Time 50(H) 25 - [address] [facility] Comment: The recommended therapeutic range for full dose, unfractionated heparin at [facility] is 80 ? 114 seconds. The use of the anti-Xa (heparin) level rather than the PTT is recommended for monitoring anticoagulation intensity in critically ill patients receiving unfractionated heparin by continuous IV infusion. Blood specimen (specimen) 09/13/2017 12:13 AM EST 09/13/2017 12:42 AM EST Narrative Resulting Agency Comment Spec In Lab Christos Buchanan MD HEMATOLOGY ORDERABLE S Performing Organization Address [facility] Co de Phone Number [facility] [place] [address] * Cardiac Enzymes (LEB/CGP) (09/13/2017 12:13 AM EST) Troponin-T <0.01 0.00 - 0.00 ng/mL ST. [...] ischemia ?? New or presumed new significant BQ-ebbtsll-S wave (ST-T) changes or new left bundle [...] additional sample may be indicated. Reference: Third [place] Definition of Myocardial Infarction. Journal of the [place] [employer] 2012;60:1581-98 Creatine Kinase 55 0 - 200 unit/L [facility] Blood specimen (specimen) 09/13/2017 12:13 AM EST 09/13/2017 12:42 AM EST Narrative Resulting Agency Comment Spec In Lab Christos Buchanan MD CHEMISTRY ORDERABLES Performing Organization Address City/[facility] Co de Phone Number [facility] [place] [address] * SCAN DOC: CARDIAC CATH (09/13/2017 12:00 [...] TEST O RDERABLES [facility] [place] [address] * Cardiac Enzymes (LEB/CGP) (09/12/2017 6:53 PM EST) Troponin-T <0.01 0.00 - 0.00 ng/mL ST. [...] ischemia ?? New or presumed new significant PG-aalnssk-C wave (ST-T) changes or new left bundle [...] additional sample may be indicated. Reference: Third [place] Definition of Myocardial Infarction. Journal of the [employer] 2012;60:1581-98 Creatine Kinase 57 0 - 200 unit/L [facility] Blood specimen (specimen) 09/12/2017 6:53 PM EST 09/12/2017 7:02 PM EST Narrative Resulting Agency Comment Spec In Lab Christos Buchanan MD CHEMISTRY ORDERABLES Performing Organization Address [facility]/ZIP Co de Phone Number [facility] [place] [address] * XR Chest PA & Lateral (Generic) [...] No acute cardiopulmonary disease. Buster Doherty DO [facility] DX ORDERABLES * Prothrombin Time (09/12/2017 1:29 PM EST) Prothrombin Time 13.7 11.8 - 14.[address] [facility] International Normalization Ratio 1.1 0.9 - 1.1 [facility] Comment: An INR <2.0 indicates [...] Lab Alejandro Blair MD HEMATOLOGY ORDERAB LES [facility] [place] [address] * APTT (09/12/2017 1:29 PM EST) Partial Thromboplastin Time 28 25 - [address] [facility] Comment: The recommended therapeutic range for full dose, unfractionated heparin at [facility] is 80 ? 114 seconds. The use of the anti-Xa (heparin) level rather than the PTT is recommended for monitoring anticoagulation intensity in critically ill patients receiving unfractionated heparin by continuous IV infusion. Blood specimen (specimen) Venous Draw / Unknown 09/12/2017 1:29 PM EST 09/12/2017 1:34 PM EST Narrative Resulting Agency Comment Spec In Lab Alejandro Blair MD HEMATOLOGY ORDERAB LES [facility] [place] [address] * pro-Brain Natriuretic Peptide (09/12/2017 1:29 PM EST) [facility] NT-proBNP 20 <=125 pg/mL [facility] Blood specimen (specimen) Venous Draw / Unknown 09/12/2017 1:29 PM EST 09/12/2017 1:35 PM EST Narrative Resulting Agency Comment Spec In Lab Alejandro Blair MD CHEMISTRY ORDERABL ES Performing Organization Address City/[facility]/ZIP Co de Phone Number [facility] [place] [address] * Gold Tube HOLD (09/12/2017 1:29 PM EST) Pathologist [facility] Gold Hold Sample in lab. [facility] Blood specimen (specimen) Venous Draw / Unknown 09/12/2017 1:29 PM EST 09/12/2017 1:34 PM EST Alejandro Blair MD CHEMISTRY ORDERABL ES [facility] [place] [address] * Blue Tube HOLD (09/12/2017 1:29 PM EST) Pathologist [facility] Blue Hold Sample in lab. [facility] Blood specimen (specimen) Venous Draw / Unknown 09/12/2017 1:29 PM EST 09/12/2017 1:34 PM EST Alejandro Blair MD HEMATOLOGY ORDERAB LES [facility] [place] [address] * Differential, Automated (09/12/2017 1:29 PM EST) [facility] Neutrophil % 57.0 % [facility] Neutrophil Absolute 5.07 1.70 - 6.10 x10(3)/[facility] LAB[facility] Lymph % 29.7 % [facility] Lymphocytes Abs 2.6 0.9 - 3.2 x10(3)/[facility] Monocyte % 7.8 % [facility] Monocyte Abs 0.7 0.3 - 0.9 x10(3)/[facility] Eos % 4.2 % [facility] Eosinophils Abs 0.4 0.0 - 0.4 x10(3)/[facility] Basophil % 0.8 % [facility] Baso Absolute 0.1 0.0 - 0.1 x10(3)/[facility] Immature Gran % 0.50 % [facility] Comment: Immature granulocytes(IG's)percentage and absolute count will include metamyelocytes, myelocytes, and promyelocytes. Blood smears from CBCs yielding IG's will be scanned manually for concordance. If this scan disagrees with the automated IG or if promyelocytes are noted, a manual differential will be performed. Immature Gran Absolute 0.04 0.00 - 0.04 x10(3)/[facility] Blood specimen (specimen) 09/12/2017 1:29 PM EST 09/12/2017 1:34 PM EST Narrative Resulting Agency Comment Spec In Lab Alejandro Blair MD HEMATOLOGY ORDERAB LES [facility] [place] [address] * Hemogram (09/12/2017 1:29 PM EST) White Blood Cell 8.9 4.0 - 9.5 x10(3)/[facility] Red Blood Cell 5.07 4.58 - 5.54 x10(6)/[facility] Hemoglobin 14.8 13.7 - 16.5 gm/dL [facility] Hematocrit 43.3 40.5 - 48.5 % [facility] Mean Cell Volume 85.4 82.9 - 93.[address] [facility] Mean Cell Hemoglobin 29.2 27.5 - 32.[address] [facility] Mean Cell Hemoglobin Concentration 34.2 32.0 - 35.7 gm/dL [facility] Platelet 208 145 - 357 x10(3)/[facility] RDW Standard Deviation 42.5 36.0 - 45.0 [facility] LAB[facility]ATORY RDW coefficient of variation 13.7 11.4 - 13.8 % [facility] Mean Platelet Volume 10.4 7.6 - 12.[address] [facility] NRBC% auto 0.0 % [facility] NRBC Absolute 0.000 0.000 - 0.000 x10(3)/[facility] Blood specimen (specimen) 09/12/2017 1:29 PM EST 09/12/2017 1:34 PM EST Narrative Resulting Agency Comment Spec In Lab Alejandro Blair MD HEMATOLOGY ORDERAB LES [facility] [place] [address] * (ABNORMAL) Basic Metabolic Panel (non-fasting) (09/12/2017 1:29 PM EST) Glucose 113 65 - 199 mg/dL [facility] Comment:Diabetes: >=200 mg/d L plus symptoms Blood Urea Nitrogen 10 10 - 20 mg/dL [facility] Creatinine 0.96 0.80 - 1.50 mg/dL [facility] Sodium 143 135 - 145 mmol/L [facility] Potassium 3.9 3.5 - 5.0 mmol/[facility] [...] mmol/L [facility] Anion Gap 17(H) 5 - 15 mmol/L [facility] Calcium 9.2 8.5 - 10.5 mg/dL [facility] Est Glomerular Filtration Rate >60 >=60 [facility] Comment: The reported eGFR should be multiplied by 1.2 for patients. The MDRD is not an appropriate measure of renal function for patients with body mass extremes or in patients with acute kidney failure. http://Vputi.Viraloid/DHnkdep http://[employer]/DHMCnkf Blood specimen (specimen) 09/12/2017 1:29 PM EST 09/12/2017 1:34 PM EST Narrative Resulting Agency Comment Spec In Lab Alejandro Blair MD CHEMISTRY ORDERABL ES [facility] [place] [address] * Cardiac Enzymes (LEB/CGP) (09/12/2017 1:29 PM EST) Troponin-T <0.01 0.00 - 0.00 ng/mL ST. [...] ischemia ?? New or presumed new significant JF-wtzshby-Z wave (ST-T) changes or new left bundle [...] additional sample may be indicated. Reference: Third [place] Definition of Myocardial Infarction. Journal of the [place] College [employer] 2012;60:1581-98 Creatine Kinase 65 0 - 200 unit/L [facility] Blood specimen (specimen) 09/12/2017 1:29 PM EST 09/12/2017 1:34 PM EST Narrative Resulting Agency Comment Spec In Lab Alejandro Blair MD CHEMISTRY ORDERABL ES 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, unspecified whether skull valley or transplanted heart Unstable angina Intermediate coronary [...] 75 mg, Oral, DAILY, First dose on [facility] 09/13/17 at 0900, Until Discontinued, Routine Given 09/14/2017 8:30 AM EST 75 mg Given 09/13/2017 8:50 AM EST 75 mg DULoxetine (CYMBALTA) capsule 60 mg 60 mg, Oral, 2 TIMES DAILY, First dose on [facility] 09/12/17 at 2100, Until Discontinued, Routine Given 09/14/2017 8:30 AM EST 60 mg Given 09/13/2017 8:20 PM EST 60 mg Given 09/13/2017 8:51 AM EST 60 mg gabapentin (NEURONTIN) capsule 600 mg 600 mg, Oral, 2 TIMES DAILY BEFORE BREAKFAST AND LUNCH, First dose (after last modification) on [facility] 09/13/17 at 0730, Until Discontinued, Routine Given 09/14/2017 8:00 AM EST 600 mg Given 09/13/2017 1:23 PM EST 600 mg Given 09/13/2017 8:00 AM EST 600 mg gabapentin (NEURONTIN) capsule 900 mg 900 mg, Oral, NIGHTLY, First dose on [facility] 09/12/17 at 2100, Until Discontinued, Routine Given 09/13/2017 8:20 PM EST 900 mg Given 09/12/2017 8:30 PM EST 900 mg heparin (porcine) injection 0-4,000 Units 0-4,000 Units, Intravenous, BOLUS PER HEPARIN PROTOCOL, Starting on [facility] 09/12/17 at 1512, Until [facility] 09/13/17 at 1015, Per Protocol, START ADJUSTMENT SCHEDULE 6 HOURS AFTER STARTING INFUSION aPTT Between 60 - 79 seconds: Bolus 2,000 units aPTT Less than 60 seconds: Bolus 4,000 units Increase infusion and recheck aPTT in 6 hours. , Routine Given 09/13/2017 1:18 AM EST 4,000 Units heparin (porcine) injection 4,000 Units 4,000 Units, Intravenous, ONCE, 1 dose, On [facility] 09/12/17 at 1515, INITIAL LOADING DOSE Maximum loading dose 4,000 units., Routine Given 09/12/2017 5:09 PM EST 4,000 Units heparin 25,000 units in dextrose 5% 500 mL infusion 0-5,000 Units/hr (0-100 mL/hr), Intravenous, CONTINUOUS, Starting on [facility] 09/12/17 at 1515, Until Thu09/13/17 at 1015, BEGIN infusion at 1,000 units [...] 120 mg, Oral, DAILY, First dose on Thu09/13/17 at 0900, Until Discontinued, DO NOT CRUSH OR OPEN, Routine Given 09/13/2017 8:52 AM EST 120 mg isosorbide mononitrate (IMDUR) CR tablet 60 mg 60 mg, Oral, ONCE, 1 dose, On Thu09/14/17 at 0830, DO NOT CRUSH OR OPEN, [...] Transdermal, 2 TIMES DAILY, First dose on [facility] 09/13/17 at 0415, Until Discontinued, Verify nicotine [...] - Reason: Transfer to a Procedural area)1134 ([facility] Unhold - Provider: Admin Adt) 0830 (Given - Provider: Rupal Munguia RN) buPROPion (WELLBUTRIN SR or ZYBAN) SR tablet 150 mg 150 mg, Oral, 2 TIMES DAILY, First dose on 09/12/17 at 2100, Until Discontinued, DO NOT CRUSH OR OPEN, Routine 2030 (Given - Provider: Keisha Mae RN) 0850 (Given - Provider: Rupal Munguia RN)1002 ([facility] Hold - Provider: Admin Adt - Reason: Transfer to a Procedural area)1134 ([facility] Unhold - Provider: Admin Adt)2019 (Given - Provider: Keisha Mae RN) 0830 (Given - Provider: Rupal Munguia RN) clopidogrel (PLAVIX) tablet 75 mg 75 mg, Oral, DAILY, First dose on 09/13/17 at 0900, Until Discontinued, Routine 0850 (Given - Provider: Rupal Munguai RN)1002 ([facility] Hold - Provider: Admin Adt - Reason: Transfer to a Procedural area)1134 ([facility] Unhold - Provider: Admin Adt) 0830 (Given - Provider: Rupal Munguia RN) DULoxetine (CYMBALTA) capsule 60 mg 60 mg, Oral, 2 TIMES DAILY, First dose on 09/12/17 at 2100, Until Discontinued, Routine 2030 (Given - Provider: Keisha Mae RN) 0851 (Given - Provider: Rupal Munguia RN)1002 ([facility] Hold - Provider: Admin Adt - Reason: Transfer to a Procedural area)1134 ([facility] Unhold - Provider: Admin Adt)2020 (Given - Provider: Keisha Mae RN) 0830 (Given - Provider: Rupal Munguia RN) gabapentin (NEURONTIN) capsule 600 mg 600 mg, Oral, 2 TIMES DAILY BEFORE BREAKFAST AND LUNCH, First dose (after last modification) on 09/13/17 at 0730, Until Discontinued, Routine 0800 (Given - Provider: Rupal Munguia RN)1002 ([facility] Hold - Provider: Admin Adt - Reason: Transfer to a Procedural area)1130 (Automatically Held - Provider: Admin Adt)1134 ([facility] Unhold - Provider: Admin Adt)1323 (Given - Provider: Rupal Munguia RN - Comment: late lunch) 0800 (Given - Provider: Rupal Munguia RN) gabapentin (NEURONTIN) capsule 900 mg 900 mg, Oral, NIGHTLY, First dose on 09/12/17 at 2100, Until Discontinued, Routine 2030 (Given - Provider: Keisha Mae RN) 1002 ([facility] Hold - Provider: Admin Adt - Reason: Transfer to a Procedural area)1134 ([facility] Unhold - Provider: Admin Adt)2019 (Given - [...] 0852 (Given - Provider: Rupal Munguia RN)1002 ([facility] Hold - Provider: Admin Adt - Reason: Transfer to a Procedural area)1134 ([facility] Unhold - Provider: Admin Adt) isosorbide mononitrate (IMDUR) CR tablet 60 mg (COMPLETED) 60 mg, Oral, ONCE, 1 dose, On 09/14/17 at 0830, DO NOT CRUSH OR OPEN, Routine 0830 (Given - Provider: Rupal Munguia RN) losartan (COZAAR) tablet 12.5 mg 12.5 mg, Oral, DAILY, First dose on 09/12/17 at 1800, Until Discontinued, Routine 1818 (Not Given - Provider: Mariela So, VERO - Reason: Patient/family refused) 0853 (Given - Provider: Rupal Munguia RN)1002 ([facility] Hold - Provider: Admin Adt - Reason: Transfer to a Procedural area)1134 ([facility] Unhold - Provider: Admin Adt) 0831 (Given - Provider: Rupal Munguia RN) meTOPROLOL tartrate (LOPRESSOR) tablet 50 mg 50 mg, Oral, 2 TIMES DAILY, First dose on 09/12/17 at 2100, Until Discontinued, Routine 2030 (Given - Provider: Keisha Mae, VERO) 0852 (Given - Provider: Rupal Munguia RN)1002 ([facility] Hold - Provider: Admin Adt - Reason: Transfer to a Procedural area)1134 ([facility] Unhold - Provider: Admin Adt)2020 (Given - Provider: Keisha Mae, RN) 0830 (Given - Provider: Rupal Munguia, VERO) nicotine (NICODERM CQ) 14 mg/24 hr patch 14 mg(Linked Group 1) 14 mg, Transdermal, Administer over 24 Hours, DAILY, First dose on 09/12/17 at 1800, Until Discontinued, Routine 1818 (Not Given - Provider: Mariela So RN - Reason: Patient/family refused) 0900 (Not Given - Provider: Rupal Munguia RN - Reason: Patient/family refused)1002 ([facility] [place] Hold - Provider: Admin Adt - Reason: Transfer to a Procedural area)1134 ([facility] Unhold - Provider: Admin Adt) 0900 (Not Given - Provider: Rupal Munguia RN - Reason: Patient/family refused) nicotine (NICODERM CQ) 14 mg/24 hr patch Patch Removal(Linked Group 1) Transdermal, DAILY, First dose on 09/13/17 at 1615, Until Discontinued, Remove nicotine 14 mg/24 hr patch 1002 ([facility] Hold - Provider: Admin Adt - Reason: Transfer to a Procedural area)1134 ([facility] Unhold - Provider: Admin Adt)1615 (Patch Not [...] Procedural area)1134 ([facility] Unhold - Provider: Admin Adt)2100 (Not Given - Provider: Keisha Mae RN - Reason: Patient/family refused) 0900 (Patch Not Verified (add comment) - Provider: Rupal Munguia RN) pantoprazole (PROTONIX) tablet 40 mg 40 mg, Oral, 2 TIMES DAILY, First dose on 09/12/17 at 2100, Until Discontinued, DO NOT CRUSH OR OPEN, Routine 2030 (Given - Provider: Keisha Mae RN) 0852 (Given - Provider: Rupal Munguia RN)1002 ([facility] Hold - Provider: Admin Adt - Reason: Transfer to a Procedural area)1134 ([facility] Unhold - Provider: Admin Adt)2020 (Given - Provider: Keisha Mae RN) 0830 (Given - Provider: Rupal Munguia, VERO) pramipexole (MIRAPEX) tablet 0.5 mg 0.5 mg, Oral, NIGHTLY, First dose on 09/12/17 at 2100, Until Discontinued, Routine 2030 (Given - Provider: Keisha Mae RN) 1002 ([facility] Hold - Provider: Admin Adt - Reason: Transfer to a Procedural area)1134 ([facility] Unhold - Provider: Admin Adt)2019 (Given - Provider: Keisha Mae, VERO) rosuvastatin (CRESTOR) tablet 20 mg 20 mg, Oral, EVERY EVENING, First dose on 09/12/17 at 1800, Until Discontinued, Routine 1818 (Given - Provider: Mariela So RN) 1002 ([facility] Hold - Provider: Admin Adt - Reason: Transfer to a Procedural area)1134 ([facility] Unhold - Provider: Admin Adt)1639 (Given - Provider: Rupal Munguia RN) sodium chloride 0.9 % flush 5 mL 5 mL, Intravenous, 2 TIMES DAILY, First dose on 09/12/17 at 2100, Until Discontinued, Routine 2100 (Not Given - Provider: Keisha Mae RN - Reason: Contraindicated - Comment: iv infusing) 0900 (Not Given - Provider: Rupal Munguia RN - Reason: Contraindicated)1002 ([facility] Hold - Provider: Admin Adt - Reason: Transfer to a Procedural area)1134 ([facility] Unhold - Provider: Admin Adt)2100 (Not Given [...] - Reason: Contraindicated)2020 (Given - Provider: Keisha Mae, VERO) 0915 (Not Given - Provider: Rupal Munguia RN - Reason: Loss of access) topiramate (TOPAMAX) tablet 50 mg 50 mg, Oral, NIGHTLY, First dose on 09/12/17 at 2100, Until Discontinued, Routine 2030 (Given - Provider: Keisha Mae, VERO) 1002 ([facility] Hold - Provider: Admin Adt - Reason: Transfer to a Procedural area)1134 ([facility] Unhold - Provider: Admin Adt)2019 (Given - Provider: Keisha Mae, VERO) Continuous Medication Order 09/12/2017 09/13/2017 09/14/2017 heparin [...] - Reason: Transfer to a Procedural area)1015 ([facility] Unhold - Provider: Admin Adt) heparin (porcine) [...] for discomfort with PIV insertion, Routine 1002 ([facility] Hold - Provider: Admin Adt - Reason: Transfer to a Procedural area)1134 ([facility] Unhold - Provider: Admin Adt) lidocaine (XYLOCAINE) [...] RN)0809 (Given - Provider: Rupal Munguia RN)1002 ([facility] Hold - Provider: Admin Adt - Reason: Transfer to a Procedural area)1134 ([facility] Unhold - Provider: Admin Adt) oxyCODONE (ROXICODONE) immediate release tablet 10 mg 10 mg, Oral, 4 TIMES DAILY PRN, Starting on 09/12/17 at 1735, Until 09/14/17 at 1312, pain unresponsive to tylenol, Routine 1002 ([facility] Hold - Provider: Admin Adt - Reason: Transfer to a Procedural area)1134 ([facility] Unhold - Provider: Admin Adt)2024 (Given - [...] provided on this medication record., Routine 1002 ([facility] Hold - Provider: Admin Adt - Reason: Transfer to a Procedural area)1134 ([facility] Unhold - Provider: Admin Adt) sodium chloride [...] UA) documented in this encounter Care Teams Guide Changer Relationship Specialty Start Date End Date Coni Lim MD [address] [place] [address] PCP - General 07/16/10 documented as of this encounter
--- OUTSIDE RECORDS SUMMARY | 2024-08-19 14:53 | XMS_ITS | Encounter Summary ---
[place] [address] Care Team Providers Care Cook Boat Name Role Phone Coni Lim MD Primary Care Provider [phone] Reason for Visit * Auth/Cert Specialty Diagnoses / Procedures Referred By Ruby t Referred To Contact Diagnoses ACS (acute coronary syndrome) UNSTABLE ANGINA Referral ID Status Reason Start Date Expiration Date Visits Re quested Visits Authorized [id number] 1 1 Encounter Details Date Type Department Care Team (Late st Contact Info) Description 03/14/2019 1:01 PM EDT - 03/14/2019 2:01 PM EDT [place] [id number] Lexus Gutiérrez MD CARDIAC CATHETERIZATION Social History Tobacco Use Types [...] Romeo Coe Patient Age: 53 y.o. Language: Armenian Race: White Ethnicity: Not [...] Inpatient Provider Contact Information: MD Esperanza Solis, SHAKER TENDER Siri Bush, SHAKER TENDER [phone] Discharge Diagnoses (Hospital Problems) and Secondary Diagnoses [...] PCI Other Major Procedures: ?? Cardiac catheterization 7/22/19 Hemodynamics: ?Left Heart Pressures ?Resting: ?Syst Diast [...] TIA and GERD who was transferred from [facility] with a diagnosis of UAP. ?? He [...] was called. ?? His last admission to [facility] was in Aug 2017 when he [...] started on Heparin gtt and transferred to [facility] for cardiac cath. Hospital Course: Undifferentiated Chest Pain - Coronary Vasospasm/Microvessel angina vs Non- Cardiac Chest Pain Romeo Coe is a 53 yo M transferred from [facility] for evaluation of unstable angina. Troponins negative. [...] PF, Split 07/30/2013 ??? Influenza Vaccine (Novel) [id number], Injectable 05/24/2009 ??? Influenza Vaccine w/Preservative, Split [...] appointments: During 8am-5pm Thursday through Thursday call [phone] to speak with a nurse in the cardiology clinic All other times call [phone] and ask to speak to the staff forester admissions director. Return to work: Ok to resume, no heavy lifting for one week (nothing over 10 lbs) Driving: No driving for 48 hours after catheterization. Follow up Appointments: PCP Coni Lim MD/Keo Ballard [phone] Your follow up appointment is scheduled for March 25, 2019 at 10 45 am Cardiology- Dr. Lawson - [phone] (First apt at [facility], then you will be seen at [facility] thereafter).Your follow up appointment is scheduled for Saturday April 13, 2019 at 1:15 pm Home oxygen therapy: N/A Arrangements for VNA/home care: none Discharge References/Attachments None Esperanza Collier APRN Cardiovascular Medicine Pager [phone] 03/16/2019 documented in this encounter Discharge Instructions * Discharge Instructions* Esperanza Collier APRN - 03/16/2019 3:00 PM EDT Call your doctor if: Chest pain, shortness of breath, pain or swelling in legs occurs. If you have non-emergent questions between now and the time of your follow up appointments: During 8am-5pm Thursday through Thursday call [phone] to speak with a nurse in the cardiology clinic All other times call [phone] and ask to speak to the staff forester admissions director. Return to work: Ok to resume, no heavy lifting for one week (nothing over 10 lbs) Driving: No driving for 48 hours after catheterization. Follow up Appointments: PCP Coni Lim MD/Keo Ballard [phone] Your follow up appointment is scheduled for March 25, 2019 at 10 45 am Cardiology- Dr. 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 Wale Mckeon MD, [facility], [facility] Staff Compliance Administrator pager [phone] * Jacqueline Montes De Oca RN - 03/15/2019 10:45 AM EDT Chest Pain ..See the written copy of this report in the patient's paper medical record. These results did not interface directly into the electronic medical record and are summarized here. See Note from LENORE. VS screen. LENORE and notified/ Stat EKG, noted as unchanged by LENORE. 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 Wale Mckeon MD, [facility] Staff Compliance Administrator pager [phone] * Wale Mckeon MD - 03/14/2019 9:23 AM EDT Images from the original note were not included. 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 ACS (acute coronary syndrome) Resolved Hospital Problems No resolved problems to display. Interval History: Admitted overnight in the setting of unstable angina. Troponins negative. TTE with preserved EF at 63% and no WMA. Awaiting [facility] today. Review of Systems: Review [...] Full code Discussed with MD Siri Brar, SHAKER TENDER Pager [phone] 03/14/2019 Attending Compliance Administrator Addendum: This patient was seen in conjunction [...] today (include vasodilator) Wale Mckeon MD, [facility], [facility] Staff Compliance Administrator pager [phone] documented in this encounter H&P Notes * [...] TIA and GERD who was transferred from [facility] with a diagnosis of UAP. He presented [...] EMS was called. His last admission to [facility] was in Aug 2017 when he [...] started on Heparin gtt and transferred to [facility] for cardiac cath. Past Medical History: [...] file Gets together: Not on file Attends hindu service: Not on file Active member of [...] Lives with and daughter at home in [place], [place]. He is disabled now. He used [...] edema . 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 Last Cath at [facility] in Aug 2017 that showed the [...] with good effect. 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 No interventions. Right radial cath site [...] TIA and GERD who was transferred from [facility] with a diagnosis of UAP Past Medical History: Diagnosis Date ??? Allergy ??? CAD (coronary artery disease), non-obstructive 05/31/2012 ??? Depression ??? DM (diabetes mellitus) 05/31/2012 ??? Dyslipidemia 05/31/2012 ??? GERD (gastroesophageal reflux disease) 05/31/2012 ??? HTN (hypertension) 05/31/2012 ??? Hx-TIA (transient ischemic attack) 06/03/2012 ??? Smoker 05/31/2012 Hospitalizations Within the Past 30 Days: no [facility] admits in last 30 days. Anticipated Length Of Stay (If known): 1-3 days Current Decision-Making Capacity: Patient is A&Ox4 and able to make all medical decisions Advance Care Planning: Full Code Not in EPIC.This author discussed ADs with patient and offered advance directive booklet and forms,patient deferred will discuss with family at a later time. [place] surrogacy [place] and process of guardianship explained. If AD's have not been completed then Spouse Dasia would be surrogate decision maker per [place] decision making law. Current Coping/Education/Information Needs: Current coping questions and concerns have been addressed. Current Functional Ability: assist of staff Functional Status Prior to Admission: independent with ADLs, driving, no DME used at baseline. Home Environment: lives in 2 level house, bedroom downstairs, no stairs to enter from outside. [address] [place] [address] Social & Family Supports/Community Resources: lives with spouse and daughter Extended Emergency Contact Information Primary Emergency Contact: LaquitaDasia Coby Address: [address] [place] [address] [facility] Relation: Spouse Health/Prescription Coverage: Primary Insurance: MEDICARE Secondary Insurance: N/A Prescription Coverage: Yes Preferred Pharmacy: [facility] [address] [address] Other: none Primary Care Provider: Coni Lim MD [phone] Patient/Caregiver Goals of Treatment: return to previous [...] of care planning. Rashmi Simmons, VERO Nurse Residential Living Assistant Pager [phone] * Op Note - Lexus Gutiérrez MD - 03/14/2019 10:54 AM EDT [facility] Operative Note Patient Name: Romeo Coe : [id number] MR#: [id number] Case Date: 03/14/2019 Surgeon: Surgeon(s) and Role: * Lexus Gutiérrez MD - Primary * Satnam Leger MD - Fellow Preoperative diagnosis: ?CAD Postoperative diagnosis: No new obstructive lesions from prior cath Procedure(s) (LRB): CARDIAC CATHETERIZATION (N/A) CORONARY ANGIOGRAPHY; W LHC,POSSIBLE PCI (N/A) Access: Radial provided good support for procedure. 6 Fr RRA with TR band in place, good hemostasis. The patient tolerated the procedures smoothly and was transferred from the cardiac catheterization lab to the next level of care in stable condition, without pain. No evident early complications. Results discussed with service punchboard stuffer Dr Mckeon, and with the patient. He did not have family that he preferred we call. He needs to be connected with a referring punchboard stuffer locally (seen at [facility]). A time-out was conducted prior to the [...] Dean had a good night. Arrived from [facility] hospital on Heparin drip. Denied chest pain [...] further details. Ed Simpson MD 03/14/2019 Pager [phone] documented in this encounter Plan of Treatment [...] below. ? Electronically signed by: Adithya Hutchison [facility] ([phone]), at 03/16/2019 1:06 PM Narrative 03/16/2019 1:06 [...] number below. Electronically signed by: Adithya Hutchison [facility]([phone]), at 03/16/2019 1:06 PM Esperanza Collier APRN IMG CT ORDERABLES * POCT Glucose (03/16/2019 11:34 AM EDT) Glucose, POC 106 65 - 199 mg/dL [facility] Comment: Supplemental ranges: <140 mg/dL before meals <180 mg/dL all other times of the day Blood specimen (specimen) 03/16/2019 11:34 AM EDT 03/16/2019 11:34 AM EDT Wale Mckeon MD POINT OF CARE TEST O RDERABLES [facility] [place] [address] * POCT Glucose (03/16/2019 7:38 AM EDT) Glucose, POC 102 65 - 199 mg/dL [facility] Comment: Supplemental ranges: <140 mg/dL before meals <180 mg/dL all other times of the day Blood specimen (specimen) 03/16/2019 7:38 AM EDT 03/16/2019 7:38 AM EDT Wale Mckeon MD POINT OF CARE TEST O RDERABLES Performing Organization Address [facility] Co de Phone Number [facility] [place] [address] * EKG 12 Lead (03/16/2019 7:07 AM EDT) Ventricular rate 59 BPM MUSE SYSTEM Atrial Rate 59 BPM MUSE SYSTEM P-R Interval 148 ms MUSE SYSTEM QRS Duration 88 ms MUSE SYSTEM Q-T Interval 408 ms MUSE SYSTEM QTC Calculated (Bezet) 403 ms MUSE SYSTEM Calculated P [place] 7 degrees MUSE SYSTEM Calculated R [place] 23 degrees MUSE SYSTEM Calculated T [place] 40 degrees MUSE SYSTEM INTERPRETATION Sinus bradycardia Otherwise normal ECG When compared with ECG of 15-MAR-2019 20:23, No significant change was found Confirmed by MD SOUMYA, JENNIFER ([id number]) on 03/16/2019 8:30:39 AM MUSE SYSTEM 03/16/2019 7:07 AM EDT 03/16/2019 8:30 AM EDT Siri Bush APRN ECG ORDERABLES Performing Organization Address [facility] Co de Phone Number MUSE SYSTEM * Differential, Automated (03/16/2019 5:07 AM EDT) Neutrophil % 48.9 % [facility] Neutrophil Absolute 3.25 1.70 - 6.10 x10(3)/[facility] Lymph % 38.1 % [facility] Lymphocytes Abs 2.5 0.9 - 3.2 x10(3)/[facility] Monocyte % 8.0 % [facility] Monocyte Abs 0.5 0.3 - 0.9 x10(3)/[facility] Eos % 4.2 % [facility] Eosinophils Abs 0.3 0.0 - 0.4 x10(3)/[facility] Basophil % 0.5 % [facility] Baso Absolute 0.0 0.0 - 0.1 x10(3)/[facility] Immature Gran % 0.30 % [facility] Comment: Immature granulocytes(IG's)percentage and absolute count will include metamyelocytes, myelocytes, and promyelocytes. Blood smears from CBCs yielding IG's will be scanned manually for concordance. If this scan disagrees with the automated IG or if promyelocytes are noted, a manual differential will be performed. Immature Gran Absolute 0.02 0.00 - 0.04 x10(3)/[facility] Blood specimen (specimen) 03/16/2019 5:07 AM EDT 03/16/2019 5:24 AM EDT Narrative Resulting Agency Comment Spec In Lab Siri Bush APRN HEMATOLOGY ORDERAB LES [facility] [place] [address] * Hemogram (03/16/2019 5:07 AM EDT) White Blood Cell 6.6 4.0 - 9.5 x10(3)/[facility] Red Blood Cell 5.33 4.58 - 5.54 x10(6)/[facility] Hemoglobin 15.6 13.7 - 16.5 gm/dL [facility] Hematocrit 45.4 40.5 - 48.5 % [facility] Mean Cell Volume 85.2 82.9 - 93.1 fL [facility] Mean Cell Hemoglobin 29.3 27.5 - 32.1 pg [facility] Mean Cell Hemoglobin Concentration 34.4 32.0 - 35.7 gm/dL [facility] Platelet 154 145 - 357 x10(3)/[facility] RDW Standard Deviation 38.3 36.0 - 45.0 fL [facility] RDW coefficient of variation 12.5 11.4 - 13.8 % [facility] Mean Platelet Volume 10.9 7.6 - 12.9 fL [facility] NRBC% auto 0.0 % [facility] NRBC Absolute 0.000 0.000 - 0.000 x10(3)/[facility] Blood specimen (specimen) 03/16/2019 5:07 AM EDT 03/16/2019 5:24 AM EDT Narrative Resulting Agency Comment Spec In Lab Siri Bush APRN HEMATOLOGY ORDERAB LES Performing Organization Address City/State/[facility] Co de Phone Number [facility] [place] [address] * (ABNORMAL) BMP w/fasting Glucose (03/16/2019 5:07 AM EDT) Glucose Fasting 119(H) 65 - 99 mg/dL [facility] Comment: ?Fasting* Glucose Interpretive [...] of Diabetes Mellitus, Position Statement from the [place] [employer]. ??Diabetes Care, Volume 33, Supplement 1, Aug 2009 Blood Urea Nitrogen 10 10 - 20 mg/dL [facility] Creatinine 0.91 0.80 - 1.50 mg/dL [facility] Sodium 138 135 - 145 mmol/L [facility] Potassium 3.6 3.5 - 5.0 mmol/L [facility] Comment: Please note: ??Patients with WBC >100,000 may have falsely elevated Potassium levels. ??For accurate Potassium quantification in these patients send serum separator tube (gold top) for subsequent determinations. ??Contact the Clinical Chemistry Laboratory if there are any questions. Chloride 106 98 - 107 mmol/L [facility] Carbon Dioxide 20(L) 22 - 31 mmol/L [facility] Anion Gap 12 5 - 15 mmol/L [facility] Calcium 9.2 8.5 - 10.5 mg/dL [facility] Est Glomerular Filtration Rate 97 >=60 mL/min/1. 73 m?? [facility] Comment: The eGFR was calculated using the CKD-EPI equation. As with all creatinine based estimates of kidney function, eGFR values calculated with the CKD-EPI equation are not accurate in patients with acute kidney failure, extremes of body mass or the acutely ill. http://[employer]/[facility] eGFR 113 >=60 mL/min/1. 73 m?? [facility] Comment: The eGFR was calculated using the CKD-EPI equation. As with all creatinine based estimates of kidney function, eGFR values calculated with the CKD-EPI equation are not accurate in patients with acute kidney failure, extremes of body mass or the acutely ill. http://[employer]/DHnkf Blood specimen (specimen) 03/16/2019 5:07 AM EDT 03/16/2019 5:24 AM EDT Narrative Resulting Agency Comment Spec In Lab Siri Bush APRN CHEMISTRY ORDERABL ES [facility] [place] [address] * EKG 12 Lead (03/15/2019 8:23 PM EDT) Ventricular rate 65 BPM MUSE SYSTEM Atrial Rate 65 BPM MUSE SYSTEM P-R Interval 140 ms MUSE SYSTEM QRS Duration 86 ms MUSE SYSTEM Q-T Interval 384 ms MUSE SYSTEM QTC Calculated (Bezet) 399 ms MUSE SYSTEM Calculated P [place] 16 degrees MUSE SYSTEM Calculated R [place] 39 degrees MUSE SYSTEM Calculated T [place] 37 degrees MUSE SYSTEM INTERPRETATION Normal sinus rhythm Normal ECG When compared with ECG of 15-MAR-2019 10:49, No significant change was found Confirmed by MD SOUMYA, JENNIFER ([id number]) on 03/16/2019 12:17:34 AM MUSE SYSTEM 03/15/2019 8:23 PM EDT 03/16/2019 12:17 AM EDT Wale Mckeon MD ECG ORDERABLES Performing Organization Address [facility] de Phone Number MUSE SYSTEM * POCT Glucose (03/15/2019 8:13 PM EDT) Glucose, POC 134 65 - 199 mg/dL [facility] Comment: Supplemental ranges: <140 mg/dL before meals <180 mg/dL all other times of the day Blood specimen (specimen) 03/15/2019 8:13 PM EDT 03/15/2019 8:13 PM EDT Wale Mckeon MD POINT OF CARE TEST Woo JAMA Performing Organization Address [facility] de Phone Number [facility] [place] [address] * POCT Glucose (03/15/2019 4:58 PM EDT) Glucose, POC 109 65 - 199 mg/dL [facility] Comment: Supplemental ranges: <140 mg/dL before meals <180 mg/dL all other times of the day Blood specimen (specimen) 03/15/2019 4:58 PM EDT 03/15/2019 4:58 PM EDT Wale Mckeon MD POINT OF CARE TEST O EVITA Performing Organization Address [facility] Co de Phone Number [facility] [place] [address] * POCT Glucose (03/15/2019 11:47 AM EDT) Glucose, POC 110 65 - 199 mg/dL [facility] Comment: Supplemental ranges: <140 mg/dL before meals <180 mg/dL all other times of the day Blood specimen (specimen) 03/15/2019 11:47 AM EDT 03/15/2019 11:47 AM EDT Wale Mckeon MD POINT OF CARE TEST O RDERABLES [facility] [place] [address] * Troponin (03/15/2019 11:17 AM EDT) [facility] Troponin-T <0.01 0.00 - 0.00 ng/mL [facility] Comment: The 99th percentile [...] ischemia ?? New or presumed new significant HZ-[id number]-K wave (ST-T) changes or new left bundle [...] additional sample may be indicated. Reference: Third [place] Definition of Myocardial Infarction. Journal of the [place] College [employer] Cardiology 2012;60:1581-98 Blood specimen (specimen) 03/15/2019 11:17 AM EDT 03/15/2019 11:42 AM EDT Narrative Resulting Agency Comment Spec In Lab Esperanza Collier SHAKER TENDER CHEMISTRY ORDERABLES Performing Organization Address [facility] Co de Phone Number [facility] [place] [address] * EKG 12 Lead (03/15/2019 10:49 AM EDT) Ventricular rate 59 BPM MUSE SYSTEM Atrial Rate 59 BPM MUSE SYSTEM P-R Interval 140 ms MUSE SYSTEM QRS Duration 86 ms MUSE SYSTEM Q-T Interval 398 ms MUSE SYSTEM QTC Calculated (Bezet) 394 ms MUSE SYSTEM Calculated P [place] 13 degrees MUSE SYSTEM Calculated R [place] 42 degrees MUSE SYSTEM Calculated T [place] 49 degrees MUSE SYSTEM INTERPRETATION Sinus bradycardia Otherwise normal ECG When compared with ECG of 15-MAR-2019 07:08, No significant change was found Confirmed by MD Buchanan Timothy ([id number]) on 03/15/2019 12:09:31 PM MUSE SYSTEM 03/15/2019 10:4 9 AM EDT 03/15/2019 12:09 PM EDT Esperanza Collier SHAKER TENDER ECG ORDERABLES Performing Organization Address [facility] de Phone Number MUSE SYSTEM * POCT Glucose (03/15/2019 7:57 AM EDT) Pathologist [facility] Glucose, POC 114 65 - 199 mg/dL [facility] Comment: Supplemental ranges: <140 mg/dL before meals <180 mg/dL all other times of the day Blood specimen (specimen) 03/15/2019 7:57 AM EDT 03/15/2019 7:57 AM EDT Wale Mckeon MD POINT OF CARE TEST O RDERABLES Performing Organization Address [facility] Co de Phone Number [facility] [place] [address] * EKG 12 Lead (03/15/2019 7:08 AM EDT) Ventricular rate 58 BPM MUSE SYSTEM Atrial Rate 58 BPM MUSE SYSTEM P-R Interval 140 ms MUSE SYSTEM QRS Duration 90 ms MUSE SYSTEM Q-T Interval 410 ms MUSE SYSTEM QTC Calculated (Bezet) 402 ms MUSE SYSTEM Calculated P [place] 5 degrees MUSE SYSTEM Calculated R [place] 24 degrees MUSE SYSTEM Calculated T [place] 34 degrees MUSE SYSTEM INTERPRETATION Sinus bradycardia Otherwise normal ECG When compared with ECG of 14-MAR-2019 19:41, No significant change was found Confirmed by MD DOOLEY ARMIN ([id number]) on 03/15/2019 9:53:01 AM MUSE SYSTEM 03/15/2019 7:08 AM EDT 03/15/2019 9:53 AM EDT Siri Bush SHAKER TENDER ECG ORDERABLES MUSE SYSTEM * Differential, Automated (03/15/2019 5:01 AM EDT) Neutrophil % 46.9 % [facility] Neutrophil Absolute 2.78 1.70 - 6.10 x10(3)/[facility] Lymph % 40.6 % [facility] Lymphocytes Abs 2.4 0.9 - 3.2 x10(3)/[facility] Monocyte % 7.7 % [facility] Monocyte Abs 0.5 0.3 - 0.9 x10(3)/[facility] Eos % 3.7 % [facility] LABORATORY Eosinophils Abs 0.2 0.0 - 0.4 x10(3)/[facility] LABORATORY Basophil % 0.8 % [facility] LABORATORY Baso Absolute 0.0 0.0 - 0.1 x10(3)/[facility] LABORATORY Immature Gran % 0.30 % [facility] LABORATORY Comment: Immature granulocytes(IG's)percentage and absolute count will include metamyelocytes, myelocytes, and promyelocytes. Blood smears from CBCs yielding IG's will be scanned manually for concordance. If this scan disagrees with the automated IG or if promyelocytes are noted, a manual differential will be performed. Immature Gran Absolute 0.02 0.00 - 0.04 x10(3)/[facility] LABORATORY Blood specimen (specimen) 03/15/2019 5:01 AM EDT 03/15/2019 5:12 AM EDT Narrative Resulting Agency Comment Spec In Lab Siri Bush SHAKER TENDER HEMATOLOGY ORDERAB LES Performing Organization Address City/[facility]/ZIP Co de Phone Number [facility] [place] [address] * Hemogram (03/15/2019 5:01 AM EDT) White Blood Cell 5.9 4.0 - 9.5 x10(3)/[facility] LABORATORY Red Blood Cell 4.95 4.58 - 5.54 x10(6)/[facility] LABORATORY Hemoglobin 14.6 13.7 - 16.5 gm/dL [facility] LABORATORY Hematocrit 43.1 40.5 - 48.5 % [facility] LABORATORY Mean Cell Volume 87.1 82.9 - 93.1 [facility] LABORATORY Mean Cell Hemoglobin 29.5 27.5 - 32.1 pg [facility] LABORATORY Mean Cell Hemoglobin Concentration 33.9 32.0 - 35.7 gm/dL [facility] LABORATORY Platelet 156 145 - 357 x10(3)/[facility] LABORATORY RDW Standard Deviation 40.2 36.0 - 45.0 [facility] LABORATORY RDW coefficient of variation 12.5 11.4 - 13.8 % [facility] LABORATORY Mean Platelet Volume 10.4 7.6 - 12.9 [facility] LABORATORY NRBC% auto 0.0 % [facility] LABORATORY NRBC Absolute 0.000 0.000 - 0.000 x10(3)/[facility] LABORATORY Blood specimen (specimen) 03/15/2019 5:01 AM EDT 03/15/2019 5:12 AM EDT Narrative Resulting Agency Comment Spec In Lab Siri Bush SHAKER TENDER HEMATOLOGY ORDERAB LES [facility] [place] [address] * (ABNORMAL) BMP w/fasting Glucose (03/15/2019 5:01 AM EDT) [facility] Signature Glucose Fasting 120(H) 65 - 99 mg/dL [facility] LABORATORY Comment: ?Fasting* Glucose Interpretive [...] of Diabetes Mellitus, Position Statement from the [place] [employer]. ??Diabetes Care, Volume 33, Supplement 1, Aug 2009 Blood Urea Nitrogen 11 10 - 20 mg/dL [facility] LABORATORY Creatinine 0.90 0.80 - 1.50 mg/dL [facility] LABORATORY Sodium 142 135 - 145 mmol/L [facility] LABORATORY Potassium 3.8 3.5 - 5.0 mmol/L [facility] LABORATORY Comment: Please note: ??Patients with WBC >100,000 may have falsely elevated Potassium levels. ??For accurate Potassium quantification in these patients send serum separator tube (gold top) for subsequent determinations. ??Contact the Clinical Chemistry Laboratory if there are any questions. Chloride 109(H) 98 - 107 mmol/L [facility] LABORATORY Carbon Dioxide 23 22 - 31 mmol/L [facility] LABORATORY Anion Gap 10 5 - 15 mmol/L [facility] LABORATORY Calcium 9.1 8.5 - 10.5 mg/dL [facility] LABORATORY Est Glomerular Filtration Rate 99 >=60 mL/min/1. 73 m?? [facility] LABORATORY Comment: The eGFR was calculated using the CKD-EPI equation. As with all creatinine based estimates of kidney function, eGFR values calculated with the CKD-EPI equation are not accurate in patients with acute kidney failure, extremes of body mass or the acutely ill. http://[employer]/[facility]nk[facility] eGFR 114 >=60 mL/min/1. 73 m?? [facility] LABORATORY Comment: The eGFR was calculated using the CKD-EPI equation. As with all creatinine based estimates of kidney function, eGFR values calculated with the CKD-EPI equation are not accurate in patients with acute kidney failure, extremes of body mass or the acutely ill. http://[employer]/[facility] CITYnkf Blood specimen (specimen) 03/15/2019 5:01 AM EDT 03/15/2019 5:12 AM EDT Narrative Resulting Agency Comment Spec In Lab Siri Bush APRN CHEMISTRY ORDERABL ES [facility] [place] [address] * (ABNORMAL) Hemoglobin A1c (03/15/2019 5:01 AM EDT) Hemoglobin A1c 6.8(H) 4.3 - 5.6 % [facility] LABORATORY Comment: Reference Range: 4.3 [...] 36: Suppl. 1, S67-74 Estimated Average Glucose 148 mg/dL [facility] LABORATORY Comment: eAG equivalents for [...] into estimated average glucose values. ??Diabetes Care 2008:31(8):3439-7432. Blood specimen (specimen) 03/15/2019 5:01 AM EDT 03/15/2019 5:12 AM EDT Narrative Resulting Agency Comment Spec In Lab Siri Bush APRN CHEMISTRY ORDERABL ES [facility] [place] [address] * Lipid Panel (03/15/2019 5:01 AM EDT) Cholesterol, Total 207 mg/dL [facility] LABORATORY Comment: Lower Risk: <200 mg/dL Average Risk: 200-239 mg/dL Higher Risk: >bs=704 mg/dL Triglyceride 256 mg/dL [facility] LABORATORY Comment: Average Risk/Lower Risk: <150 mg/dL Borderline High Risk: 150-199 mg/dL High Risk: 200-499 mg/dL Very High Risk: >ul=166 mg/dL HDL Cholesterol 28 mg/dL [facility] LABORATORY Comment: Males: ?? Higher Risk: <40 mg/dL Females: ?? HIgher Risk: <50 mg/dL LDL Cholesterol 128 mg/dL [facility] LABORATORY Comment: Lowest Risk: <100 mg/dL Lower Risk: 100-129 mg/dL Borderline High Risk: 130-159 mg/dL High Risk: 160-189 mg/dL Very High Risk: >bb=239 mg/dL Cholesterol/HDL Ratio 7.4 ratio [facility] LABORATORY Lipid Interpretation See Note [facility] LABORATORY Comment: Lipid management should be guided by a patient? s ASCVD risk, goals and preferences. ACC/AHA Guidelines recommend high intensity statin if clinical ASCVD or LDL greater than or equal to 190 mg/dL. http://G[employer].com/TEW-RFZ-Dbmutrfeq Adults aged 40-75 with LDL 70-189 mg/dL should have their 10 year ASCVD risk estimated with the ACC/AHA ASCVD risk auto body repair estimator http://tools.acc.org/FZFED-Mvtk-Usracnayg/ Statin should be discussed if risk greater [...] Lab Siri Bush APRN CHEMISTRY ORDERABL ES Performing Organization Address City/[facility]/ZIP Co de Phone Number [facility] [place] [address] * POCT Glucose (03/14/2019 7:50 PM EDT) Glucose, POC 123 65 - 199 mg/dL [facility] LABORATORY Comment: Supplemental ranges: <140 mg/dL before meals <180 mg/dL all other times of the day Blood specimen (specimen) 03/14/2019 7:50 PM EDT 03/14/2019 7:50 PM EDT Wale Mckeon MD POINT OF CARE TEST O RDERABLES [facility] [place] [address] * EKG 12 Lead (03/14/2019 7:41 PM EDT) [facility] Ventricular rate 59 BPM MUSE SYSTEM Atrial Rate 59 BPM MUSE SYSTEM P-R Interval 142 ms MUSE SYSTEM QRS Duration 80 ms MUSE SYSTEM Q-T Interval 396 ms MUSE SYSTEM QTC Calculated (Bezet) 392 ms MUSE SYSTEM Calculated P [place] 40 degrees MUSE SYSTEM Calculated R [place] 37 degrees MUSE SYSTEM Calculated T [place] 46 degrees MUSE SYSTEM INTERPRETATION Sinus bradycardia Otherwise normal ECG When compared with ECG of 14-MAR-2019 01:06, No significant change was found Confirmed by MD SOUMYA, JENNIFER ([id number]) on 03/15/2019 9:52:58 AM MUSE SYSTEM 03/14/2019 7:41 PM EDT 03/15/2019 9:52 AM EDT Wale Mckeon MD ECG ORDERABLES Performing Organization Address [facility] Co de Phone Number MUSE SYSTEM * POCT Glucose (03/14/2019 4:21 PM EDT) [facility] Glucose, POC 128 65 - 199 mg/dL [facility] LABORATORY Comment: Supplemental ranges: <140 mg/dL before meals <180 mg/dL all other times of the day Blood specimen (specimen) 03/14/2019 4:21 PM EDT 03/14/2019 4:21 PM EDT Wale Mckeon MD POINT OF CARE TEST O RDERABLES Performing Organization Address [facility] Co de Phone Number [facility] [place] [address] * Troponin (03/14/2019 3:10 PM EDT) [facility] Troponin-T <0.01 0.00 - 0.00 ng/mL [facility] LABORATORY Comment: The 99th percentile [...] ischemia ?? New or presumed new significant CW-rkaehai-O wave (ST-T) changes or new left bundle [...] additional sample may be indicated. Reference: Third [place] Definition of Myocardial Infarction. Journal of the [place] [employer] 2012;60:1581-98 Blood specimen (specimen) 03/14/2019 3:10 PM EDT 03/14/2019 3:19 PM EDT Narrative Resulting Agency Comment Spec In Lab Wale Mckeon MD CHEMISTRY ORDERABLES [facility] [place] [address] * XR Chest PA or AP 1 [...] below. ? Electronically signed by: Isabel Fong [facility] ([phone]), at 03/14/2019 3:46 PM Narrative 03/14/2019 3:46 [...] number below. Electronically signed by: Isabel Fong [facility]([phone]), at 03/14/2019 3:46 PM Ed Simpson MD IMG DX ORDERABLES * POCT Glucose (03/14/2019 11:41 AM EDT) Glucose, POC 96 65 - 199 mg/dL [facility] LABORATORY Comment: Supplemental ranges: <140 mg/dL before meals <180 mg/dL all other times of the day Blood specimen (specimen) 03/14/2019 11:41 AM EDT 03/14/2019 11:41 AM EDT Wale Mckeon MD POINT OF CARE TEST O RDERABLES [facility] [place] [address] * CARDIAC CATHETERIZATION (03/14/2019 10:55 AM EDT) Anatomical Region Laterality Modality Other Narrative 03/15/2019 4:29 PM EDT ?[facility] ? Cardiac Catheterization/Intervention Report ? Patient Name: Romeo Coe A. ? Procedure Date: 03/14/2019 ? A #: [id number] ? Primary Physician: Lexus Gutiérrez ? Case #: [id number] ? File Name: [id number] ? Catheterization Order Number: [id number] ? [facility] ? Final Report [place], [place] ? Patient Name: ? Romeo KieshaNatalie Coe ? ID#: ?[id number] ? : ?1965 ? Procedure Date: ? [...] was Urgent. The indication for ?the cathode ray tube assembler visit is ACS less than or equal [...] Procedure Note Lexus Gutiérrez MD - 08/13/2019 [facility] Cardiac Catheterization/Intervention Report Patient Name: Romeo CoeNatalie Procedure Date: 03/14/2019 A #: [id number] Primary Physician: Lexus Gutiérrez Case #: File Name: [id number] Catheterization Order Number: [id number] [facility] FinalReport [place], [place] Patient Name: Romeo Coe ID#:[id number] :1965 Procedure Date: March 14, 2019 Case #: [id number] Room: 2 Case Physician: Lexus Gutiérrez M.D. [...] patient was designated as ASAClass III. The [facility] clinical frailty scale is 2: Well. Diagnostic Tests: Prior Coronary Angiography: Prior coronary angiography was performed on 09/13/2017 andshowed non-obstructive CAD. LV ejection fraction within 6 months is63%. Electrocardiography: EKG was assessed by ECG. EKG was Normal. Medications Prior to Procedure: ASA, Beta Agatha and Statin. Indications for Diagnostic Cath: The priority of the diagnostic procedure was Urgent. The indicationfor the cathode ray tube assembler visit is ACS less than or equal [...] EDT) Troponin-T <0.01 0.00 - 0.00 ng/mL [facility] LABORATORY Comment: The 99th percentile [...] ischemia ?? New or presumed new significant EL-wnglvfq-A wave (ST-T) changes or new left bundle [...] additional sample may be indicated. Reference: Third [place] Definition of Myocardial Infarction. Journal of the [place] [employer]iology 2012;60:1581-98 Blood specimen (specimen) 03/14/2019 8:53 AM EDT 03/14/2019 9:06 AM EDT Narrative Resulting Agency Comment Spec In Lab Wale Mckeon MD CHEMISTRY ORDERABLES Performing Organization Address City/[facility]/ZIP Co de Phone Number [facility] [place] [address] * (ABNORMAL) Differential, Automated (03/14/2019 8:53 AM EDT) Neutrophil % 33.7 % [facility] LABORATORY Neutrophil Absolute 2.11 1.70 - 6.10 x10(3)/[facility] LABORATORY Lymph % 52.4 % [facility] LABORATORY Lymphocytes Abs 3.3(H) 0.9 - 3.2 x10(3)/[facility] LABORATORY Monocyte % 7.6 % [facility] LABORATORY Monocyte Abs 0.5 0.3 - 0.9 x10(3)/[facility] LABORATORY Eos % 4.9 % [facility] LABORATORY Eosinophils Abs 0.3 0.0 - 0.4 x10(3)/[facility] LABORATORY Basophil % 1.1 % [facility] LABORATORY Baso Absolute 0.1 0.0 - 0.1 x10(3)/[facility] LABORATORY Immature Gran % 0.30 % [facility] LABORATORY Comment: Immature granulocytes(IG's)percentage and absolute count will include metamyelocytes, myelocytes, and promyelocytes. Blood smears from CBCs yielding IG's will be scanned manually for concordance. If this scan disagrees with the automated IG or if promyelocytes are noted, a manual differential will be performed. Immature Gran Absolute 0.02 0.00 - 0.04 x10(3)/ L [facility] LABORATORY Blood specimen (specimen) 03/14/2019 8:53 AM EDT 03/14/2019 9:06 AM EDT Narrative Resulting Agency Comment Spec In Lab Ed Simpson MD HEMATOLOGY ORDERABLE S Performing Organization Address City/[facility]/ZIP Co de Phone Number [facility] [place] [address] * Hemogram (03/14/2019 8:53 AM EDT) White Blood Cell 6.3 4.0 - 9.5 x10(3)/[facility] LABORATORY Red Blood Cell 5.11 4.58 - 5.54 x10(6)/[facility] LABORATORY Hemoglobin 14.9 13.7 - 16.5 gm/dL [facility] LABORATORY Hematocrit 44.2 40.5 - 48.5 % [facility] LABORATORY Mean Cell Volume 86.5 82.9 - 93.1 fL [facility] LABORATORY Mean Cell Hemoglobin 29.2 27.5 - 32.1 pg [facility] LABORATORY Mean Cell Hemoglobin Concentration 33.7 32.0 - 35.7 gm/dL [facility] LABORATORY Platelet 156 145 - 357 x10(3)/[facility] LABORATORY RDW Standard Deviation 40.3 36.0 - 45.0 [facility] LABORATORY RDW coefficient of variation 12.6 11.4 - 13.8 % [facility] LABORATORY Mean Platelet Volume 10.7 7.6 - 12.9 [facility] LABORATORY NRBC% auto 0.0 % [facility]ORATORY NRBC Absolute 0.000 0.000 - 0.000 x10(3)/[facility] LABORATORY Blood specimen (specimen) 03/14/2019 8:53 AM EDT 03/14/2019 9:06 AM EDT Narrative Resulting Agency Comment Spec In Lab Ed Simpson MD HEMATOLOGY ORDERABLE S [facility] [place] [address] * Heparin (unfractionated) Level (03/14/2019 8:53 AM EDT) Pathologist [facility] UF Heparin 0.37 IU/mL [facility] LABORATORY [...] HEALTH CARE FACILITY Co de Phone Number [facility] [place] [address] * ECHO COMPLETE (03/14/2019 8:37 AM EDT) EF 63 HEARTLAB SYSTEM Anatomical Region Laterality Modality Other 03/14/2019 Narrative 03/14/2019 8:45 AM EDT Procedure: ?Transthoracic Echocardiogram Patient: ?LAQUITA Pop ? (Age): 1965(53y) Med Rec#: ? [id number] ?Sex: ?M ? Site Loc: ? [facility] ?Ht / Wt: ??177(cm)/101(kg) Pt. Loc: ?Adult Floor ? BSA: ?2.18 Study Date: ?? 03/14/2019 ?Pt. Type: Inpatient Tape: ? Referring: Ed Simpson Reading: Christos Buchanan ([id number]) Data Report Analyst: Yessi Webb [facility] Diagnosis: *Unstable angina (I20.0) BP: ? [...] E-wave Vmax ?0.6 ?m/sec ? MV deceleration fcmr669.5 ?msec ? MV A-wave Vmax ?0.4 ?m/sec [...] ? Mid-Inferior ?Normal ? Mid-Inferoseptal ?Normal ? Elizabeth-Septal ? Normal ? Elizabeth-Anterior ? Normal ? Elizabeth-Lateral ?Normal ? Elizabeth-Inferior ? Normal ? Elizabeth-Tip ?Normal ? This report has been electronically signed by: Christos Buchanan M.D. ? 03/14/2019 08:45:08 Images reviewed and interpretation verified [facility] Cardiac Ultrasound Laboratory Procedure Note Christos Buchanan MD - 03/14/2019 Procedure: Transthoracic Echocardiogram Patient: LAQUITA Ppo (Age): 1965(53y) Med Rec#: [id number] Sex: M Site Loc: [facility] Ht / Wt: 177(cm)/101(kg) Pt. Loc: Adult Floor BSA: 2.18 Study Date: 03/14/2019 Pt. Type: Inpatient Tape: Referring: Ed Simpson Reading: Christos Buchanan ([id number]) Data Report Analyst: Yessi Webb [facility] Diagnosis: *Unstable angina (I20.0) BP: 104/58 [...] MV E-wave Vmax 0.6 m/sec MV deceleration [id number] msec MV A-wave Vmax 0.4 m/sec MV [...] Normal Mid-Posterolateral Normal Mid-Inferior Normal Mid-Inferoseptal Normal Elizabeth-Septal Normal Elizabeth-Anterior Normal Elizabeth-Lateral Normal Elizabeth-Inferior Normal Elizabeth-Tip Normal This report has been electronically signed by: Christos Buchanan M.D. 03/14/2019 08:45:08 Images reviewed and interpretation verified [facility] Cardiac Ultrasound Laboratory Ed Simpson MD ECHO ORDERABLES * POCT Glucose (03/14/2019 7:42 AM EDT) Glucose, POC 102 65 - 199 mg/dL [facility] Comment: Supplemental ranges: <140 mg/dL before meals <180 mg/dL all other times of the day Blood specimen (specimen) 03/14/2019 7:42 AM EDT 03/14/2019 7:42 AM EDT Wale Mckeon MD POINT OF CARE TEST O RDERABLES [facility] [place] [address] * (ABNORMAL) Chloride (03/14/2019 3:28 AM EDT) Chloride 108(H) 98 - 107 mmol/L [facility] LABOR[facility] Blood specimen (specimen) 03/14/2019 3:28 AM EDT 03/14/2019 3:32 AM EDT Narrative Resulting Agency Comment Spec In Lab Wale Mckeon MD CHEMISTRY ORDERABLES [facility] [place] [address] * Troponin (03/14/2019 3:28 AM EDT) [facility] Troponin-T <0.01 0.00 - 0.00 ng/mL [facility] LABORATORY Comment: The 99th percentile [...] ischemia ?? New or presumed new significant RM-wtzsolc-J wave (ST-T) changes or new left bundle [...] additional sample may be indicated. Reference: Third [place] Definition of Myocardial Infarction. Journal of the [place] [employer]iology 2012;60:1581-98 Blood specimen (specimen) 03/14/2019 3:28 AM EDT 03/14/2019 3:32 AM EDT Narrative Resulting Agency Comment Spec In Lab Wale Mckeon MD CHEMISTRY ORDERABLES Performing Organization Address [facility] de Phone Number [facility] [place] [address] * Sodium (03/14/2019 3:28 AM EDT) Sodium 140 135 - 145 mmol/L [facility] Blood specimen (specimen) 03/14/2019 3:28 AM EDT 03/14/2019 3:32 AM EDT Narrative Resulting Agency Comment Spec In Lab Wale Mckeon MD CHEMISTRY ORDERABLES Performing Organization Address [facility] de Phone Number [facility] [place] [address] * Potassium (03/14/2019 3:28 AM EDT) Potassium 3.7 3.5 - 5.0 mmol/L [facility] Comment: Please note: ??Patients [...] Mckeon MD CHEMISTRY ORDERABLES Performing Organization Address [facility] de Phone Number [facility] [place] [address] * Heparin (unfractionated) Level (03/14/2019 2:46 AM EDT) UF Heparin 0.57 IU/mL [facility] LABORATORY [...] HEALTH CARE FACILITY Co de Phone Number [facility] [place] [address] * (ABNORMAL) Differential, Automated (03/14/2019 1:50 AM EDT) Neutrophil % 38.9 % [facility] Neutrophil Absolute 3.10 1.70 - 6.10 x10(3)/mc L [facility] LAB[facility] Lymph % 49.6 % [facility] LABOR[facility] Lymphocytes Abs 4.0(H) 0.9 - 3.2 x10(3)/mc L [facility] LABOR[facility]ORY Monocyte % 6.3 % [facility] Monocyte Abs 0.5 0.3 - 0.9 x10(3)/mc L [facility] Eos % 4.1 % [facility] Eosinophils Abs 0.3 0.0 - 0.4 x10(3)/mc L [facility] Basophil % 0.8 % [facility] Baso Absolute 0.1 0.0 - 0.1 x10(3)/mc L [facility] Immature Gran % 0.30 % [facility] Comment: Immature granulocytes(IG's)percentage and absolute count will include metamyelocytes, myelocytes, and promyelocytes. Blood smears from CBCs yielding IG's will be scanned manually for concordance. If this scan disagrees with the automated IG or if promyelocytes are noted, a manual differential will be performed. Immature Gran Absolute 0.02 0.00 - 0.04 x10(3)/mc L [facility] Blood specimen (specimen) 03/14/2019 1:50 AM EDT 03/14/2019 2:04 AM EDT Narrative Resulting Agency Comment Spec In Lab Ed Simpson MD HEMATOLOGY ORDERABLE S [facility] [place] [address] * Hemogram (03/14/2019 1:50 AM EDT) White Blood Cell 8.0 4.0 - 9.5 x10(3)/[facility] LABORATORY Red Blood Cell 4.98 4.58 - 5.54 x10(6)/[facility] LABORATORY Hemoglobin 15.0 13.7 - 16.5 gm/dL [facility] Hematocrit 42.4 40.5 - 48.5 % [facility] Mean Cell Volume 85.1 82.9 - 93.1 fL [facility] Mean Cell Hemoglobin 30.1 27.5 - 32.1 pg [facility] Mean Cell Hemoglobin Concentration 35.4 32.0 - 35.7 gm/dL [facility] Platelet 192 145 - 357 x10(3)/[facility] LABORATORY RDW Standard Deviation 39.9 36.0 - 45.0 [facility] LABORATORY RDW coefficient of variation 12.9 11.4 - 13.8 % [facility] Mean Platelet Volume 11.7 7.6 - 12.9 [facility] LABORATORY NRBC% auto 0.0 % [facility] NRBC Absolute 0.000 0.000 - 0.000 x10(3)/[facility] LABORATORY Blood specimen (specimen) 03/14/2019 1:50 AM EDT 03/14/2019 2:04 AM EDT Narrative Resulting Agency Comment Spec In Lab Ed Simpson MD HEMATOLOGY ORDERABLE S Performing Organization Address [facility] de Phone Number [facility] [place] [address] * pro-Brain Natriuretic Peptide (03/14/2019 1:50 AM EDT) NT-proBNP 12 <=125 pg/mL [facility]OR[facility] Blood specimen (specimen) 03/14/2019 1:50 AM EDT 03/14/2019 2:04 AM EDT Narrative Resulting Agency Comment Spec In Lab Ed Simpson MD CHEMISTRY ORDERABLES Performing Organization Address [facility] de Phone Number [facility] [place] [address] * Magnesium (03/14/2019 1:50 AM EDT) Magnesium 0.81 0.69 - 1.07 mmol/L [facility] Blood specimen (specimen) 03/14/2019 1:50 AM EDT 03/14/2019 2:04 AM EDT Narrative Resulting Agency Comment Spec In Lab Ed Simpson MD CHEMISTRY ORDERABLES Performing Organization Address [facility] de Phone Number [facility] [place] [address] * (ABNORMAL) BMP w/fasting Glucose (03/14/2019 1:50 AM EDT) Glucose Fasting 110(H) 65 - 99 mg/dL [facility] Comment: ?Fasting* Glucose Interpretive [...] of Diabetes Mellitus, Position Statement from the [place] [employer]. ??Diabetes Care, Volume 33, Supplement 1, Aug 2009 Blood Urea Nitrogen 10 10 - 20 mg/dL [facility] Creatinine 1.00 0.80 - 1.50 mg/dL [facility] Sodium Not Perf 135 - 145 [facility] Potassium Not Perf 3.5 - 5.0 [facility] Comment: Called by: nathan, Read back by: Keeley Arias, Date/Time:03/14/19 03:03. Please note: ??Patients with WBC >100,000 may have falsely elevated Potassium levels. ??For accurate Potassium quantification in these patients send serum separator tube (gold top) for subsequent determinations. ??Contact the Clinical Chemistry Laboratory if there are any questions. Chloride Not Perf 98 - 107 [facility] Carbon Dioxide 22 22 - 31 mmol/L [facility] Anion Gap Unable to Calculate 5 - 15 mmol/L [facility] Calcium 8.5 8.5 - 10.5 mg/dL [facility] Est Glomerular Filtration Rate 87 >=60 mL/min/1 .73 m?? [facility] Comment: The eGFR was calculated using the CKD-EPI equation. As with all creatinine based estimates of kidney function, eGFR values calculated with the CKD-EPI equation are not accurate in patients with acute kidney failure, extremes of body mass or the acutely ill. http://[employer]/DHMCnkf eGFR 101 >=60 mL/min/1 .73 m?? [facility] Comment: The eGFR was calculated using the CKD-EPI equation. As with all creatinine based estimates of kidney function, eGFR values calculated with the CKD-EPI equation are not accurate in patients with acute kidney failure, extremes of body mass or the acutely ill. http://[email or web address]/DHMCnkf Blood specimen (specimen) 03/14/2019 1:50 AM EDT 03/14/2019 2:04 AM EDT Narrative Resulting Agency Comment Spec In Lab Ed Simpson MD CHEMISTRY ORDERABLES Performing Organization Address [place]/[facility] Co de Phone Number [facility] [place] [address] * EKG 12 Lead (03/14/2019 1:06 AM EDT) Ventricular rate 63 BPM MUSE SYSTEM Atrial Rate 63 BPM MUSE SYSTEM P-R Interval 146 ms MUSE SYSTEM QRS Duration 84 ms MUSE SYSTEM Q-T Interval 384 ms MUSE SYSTEM QTC Calculated (Bezet) 392 ms MUSE SYSTEM Calculated P [place] 28 degrees MUSE SYSTEM Calculated R [place] 21 degrees MUSE SYSTEM Calculated T [place] 18 degrees MUSE SYSTEM INTERPRETATION Normal sinus rhythm Normal ECG When compared with ECG of 13-SEP-2017 07:49, No significant change was found Confirmed by MD NAZANIN, DEISY ([id number]) on 03/14/2019 9:49:11 AM MUSE SYSTEM 03/14/2019 1:06 AM EDT 03/14/2019 9:49 AM EDT Ed Simpson MD ECG ORDERABLES Performing Organization Address [facility] Co de Phone Number MUSE SYSTEM documented [...] Oca RN) 0849 (Given - Provider: Heather Jenkins RN) buPROPion (WELLBUTRIN SR or ZYBAN) SR [...] Arias RN) 2030 (Given - Provider: Beverly Chan, VERO) DULoxetine (CYMBALTA) capsule 60 mg 60 mg, [...] Provider: Admin Adt)1223 (Given - Provider: Mariela Nichols, VERO) 0639 (Given - Provider: Keeley Arias RN)1118 (Given - Provider: Jacqueline Montes De Oca RN) 0617 (Given - Provider: Beverly Chan RN)1135 (Given - Provider: Heather Jenkins, VERO) gabapentin (NEURONTIN) capsule 600 mg(Linked Group 1) 600 mg, Oral, NIGHTLY, First dose on Thu03/14/19 at 2100, Until Discontinued, Routine 1003 (MAR Hold - Provider: Admin Adt - Reason: Transfer to a Procedural area)1133 (OCT Unhold - Provider: Admin Adt)2017 (Given - Provider: Keeley Arias RN) 2031 (Given - Provider: Beverly Chan RN) insulin lispro (HumaLOG) VIAL injection 1-4 Units(Linked [...] De Oca RN)2331 (Given - Provider: Beverly Chan RN) 0512 (Given - Provider: Beverly Chan RN)1135 (Given - Provider: Heather Jenkins RN) metoprolol tartrate (LOPRESSOR) tablet 75 mg (CANCELED) 75 mg, Oral, EVERY 6 HOURS SCHEDULED, First dose on Thu03/14/19 at 0900, Until Discontinued, Please hold if SBP<90 mmHg and HR<60bpm. Thanks!, Routine 0900 (Hold - Provider: Mariela Nichols RN - Reason: Order parameters not met - Comment: HR sustaining in 50s)1003 (MAR Hold - Provider: Admin Adt - Reason: Transfer to a Procedural area)1133 (MAR Unhold - Provider: Admin Adt)1805 (Given - [...] Keeley Arias RN)0853 (Given - Provider: Mariela Nichols, VERO)1003 (OCT Hold - Provider: Admin Adt - Reason: Transfer to a Procedural area)1133 (MAR Unhold - Provider: Admin Adt)2018 (Given - Provider: Keeley Arias RN) 0854 (Given - Provider: Jacqueline Montes De Oca, VERO)203 (Given - Provider: Beverly Chan RN) 0849 (Given - Provider: Heather Jenkins RN) rosuvastatin (CRESTOR) tablet 40 mg 40 mg, Oral, EVERY EVENING, First dose on Thu03/14/19 at 0245, Until Discontinued, Routine 0255 (Given - Provider: Keeley Arias RN)1003 (OCT Hold - Provider: Admin Adt - Reason: Transfer to a Procedural area)1133 (MAR Unhold - Provider: Admin Adt)1634 (Given - Provider: Mariela Nichols RN) 1747 (Given - Provider: Jacqueline Montes D eOca RN) sodium chloride 0.9 % (flush) flush 5 mL 5 mL, Intravenous, 2 TIMES DAILY, First dose on Thu03/14/19 at 0115, Until Discontinued, Routine 0115 (Not Given - Provider: Keeley Arias RN - Reason: Contraindicated)0900 (Not Given - Provider: Mariela Nichols RN - Reason: Contraindicated - Comment: iv infusing)1003 (MAR Hold - Provider: Admin Adt - Reason: Transfer to a Procedural area)1133 (MAR Unhold - Provider: Admin Adt)2100 (Not Given - Provider: Keeley Arias RN - Reason: Contraindicated) 0900 (Given - Provider: Jacqueline Montes De Oca RN)2099 (Not Given - Provider: Beverly Chan RN [...] Procedural area)1133 (MAR Unhold - Provider: Admin Adt)2099 (Not Given - Provider: Keeley Arias RN - Reason: Contraindicated) 0900 (Given - Provider: Jacqueline Montes De Oca RN)2031 (Given - Provider: Beverly Chan RN) 0900 [...] Procedural area)1133 (MAR Unhold - Provider: Admin Adt)2019 (Given - [...] Procedure) 0259 (New Bag - Provider: Keeley Arias, VERO) sodium chloride 0.9% infusion (CANCELED) 100 mL/hr, Intravenous, CONTINUOUS, Starting on Thu03/14/19 at 1130, Until Thu03/14/19 at 1133, Cath (Recovery-Hospital Unit) 1111 (New Bag - Provider: Keeley Kyle, VERO)1130 (Stopped - Provider: Mariela Nichols RN) PRN [...] Adt)1952 (Given - Provider: Keeley Arias, VERO) dextrose 50% intravenous solution 25-50 mL(Linked Group [...] duration of the active insulin., Routine 1003 ([facility] Hold - Provider: Admin Adt - Reason: Transfer to a Procedural area)1133 ([facility] Unhold - Provider: Admin Adt) glucose (GLUTOSE) [...] = 37.5 grams., Routine 1003 ([facility] Hold - Provider: Admin Adt - Reason: Transfer to a Procedural area)1133 ([facility] Unhold - Provider: Admin Adt) iohexol [...] with PIV insertion, Routine 1003 ([facility] Hold - Provider: Admin Adt - Reason: Transfer to a Procedural area)1133 ([facility] Unhold - Provider: Admin Adt) midazolam [...] to 72 hours., Routine 1003 ([facility] Hold - Provider: Admin Adt - Reason: Transfer to a Procedural area)1133 ([facility] Unhold - Provider: Admin Adt) nitroGLYcerin [...] Pain, Routine 0255 (Given - Provider: Keeley Arias RN)1003 ([facility] Hold - Provider: Admin Adt - Reason: Transfer to a Procedural area)1133 ([facility] Unhold - Provider: Admin Adt)1952 (Given [...] this medication record., Routine 1003 ([facility] Hold - Provider: Admin Adt - Reason: Transfer to a Procedural area)1133 ([facility] Unhold - Provider: Admin Adt) sodium chloride 0.9 % (flush) flush 5-20 mL 5-20 mL, Intravenous, EVERY 1 MIN PRN, Starting on Thu03/14/19 at 0219, Until Thu03/16/19 at 1756, flush, Flush pertains to all indwelling lines. Flush per protocol found in the job aid using the link provided on this medication record., Routine 1003 ([facility] Hold - Provider: Admin Adt - Reason: Transfer to a Procedural area)1133 ([facility] Unhold - Provider: Admin Adt) verapamil [...] Routine documented in this encounter Care Teams Cook Boat Relationship Specialty Start Date End Date Coni Lim MD [address] [place] [address] PCP - General 07/16/10 documented as of this encounter
--- OUTSIDE RECORDS SUMMARY | 2024-08-19 14:53 | XMS_ITS | Encounter Summary ---
[place] [address] Care Team Providers Care Ring Attacher Name Role Phone Coni Lim MD Primary Care Provider [phone] Encounter Details Date Type Department Care Team (Latest Contact Info) Description 09/13/2018 11:00 AM EST Interpretation Only Cardiology at [address] [phone] Rafael Nieto Jr., MD Chest pain, unspecified type Social History Tobacco [...] type documented in this encounter Care Teams Ring Attacher Relationship Specialty Start Date End Date Coni Lim MD [address] [place] [address] PCP - General 07/16/10 documented as of this encounter
--- OUTSIDE RECORDS SUMMARY | 2024-08-19 14:53 | XMS_ITS | Encounter Summary ---
Author Organization [facility] [place] [address] Care Team Providers Care Blast Furnace Checker Name Role Phone Coni Lim MD Primary Care Provider [phone] Encounter Details Date Type Department Care Team (Late st Contact Info) Description 03/13/2019 Telephone Cardiology at [address] [phone] Syed Solorio MD Social History Tobacco Use Types Packs/Day [...] Initial Contact Date: 03/13/19 Initial contact time: 2234 Referring Provider: Heide Patient Location: [facility] Presenting Symptoms per OSH: Stable angina SOB [...] or examined this patient. Syed Solorio MD Environmental Monitoring Specialist PGY4 P: [phone] documented in this encounter Plan of Treatment Not on file documented as of this encounter Visit Diagnoses Not on filedocumented in this encounter Care Teams Blast Furnace Checker Relationship Specialty Start Date End Date Coni Lim MD [address] [place] [address] PCP - General 07/16/10 documented as of this encounter
--- OUTSIDE RECORDS SUMMARY | 2024-08-19 14:54 | XMS_ITS | Encounter Summary ---
Author Organization [facility] [place] [address] Care Team Providers Care Teasel Gig Operator Name Role Phone Coni Lim MD Primary Care Provider [phone] Encounter Details Date Type Department Care Team (Late st Contact Info) Description 08/25/2017 Telephone Cardiology at [address] [phone] Zarina Jiang Social History Tobacco Use Types [...] said that his stents were replaced in [facility] and he didn't feel he needed to be in the trial anymore. I asked the patient to complete the survey based on his chest pain and he refused. He withdrew from the study. documented in this encounter Plan of Treatment Not on file documented as of this encounter Visit Diagnoses Not on filedocumented in this encounter Care Teams Teasel Gig Operator Relationship Specialty Start Date End Date Coni Lim MD [address] [place] [address] PCP - General 07/16/10 documented as of this encounter
--- OUTSIDE RECORDS SUMMARY | 2024-08-19 14:54 | XMS_ITS | Encounter Summary ---
Author Organization Counts Include [facility] Address [facility] [place] [address] Care Team Providers Care Skimmer Name Role Phone Coni Lim MD Primary Care Provider [phone] Reason for Visit * Auth/Cert Specialty Diagnoses / Procedures Referred By Ruby garvin Referred To Contact Diagnoses Unstable angina [place] Referral ID Status Reason Start Date Expiration Date Visits Re quested Visits Authorized [id number] 1 1 Encounter Details Date Type Department Care Team (Latest Contact Info) Description 11/21/2016 7:58 PM EDT - 11/25/2016 11:04 AM EDT Hospital Encounter Intermediate [place] [id number] Valentín Oreilly MD Williams, Eric M, MD [facility] [address] Unstable angina Discharge Disposition: Home Social History [...] Romeo Coelho Patient Age: 51 y.o. Language: Gabonese Race: White Ethnicity: Not nor Admit date: 11/21/2016 Discharge date and time: 11/25/2016 Attending Physician: Roque Sanches MD Discharge Physician: Roque Sanches MD Follow-up Recommendations for Providers: 1. Admitted with unstable angina. Drug-eluting stent RCA. 2. Requires dual antiplatelet therapy for 1 year 3. Smoking cessation Inpatient Provider Contact Information: Keisha Rose APRN [facility] Provider # [id number] Discharge Diagnoses (Hospital Problems) and Secondary Diagnoses (Chronic Problems): Active Hospital Problems Diagnosis ??? Unstable angina ??? CAD (coronary artery disease) -Coronary Angio 07/29/2013: 65% (FFR 0.74) mid LAD lesion s/p PCI with 3.5 X 18 mm [facility] - [facility] 2009 post abnormal nuc stress +IW, [...] tobacco use, and obesity was transferred from [facility] to [facility] for further evaluation of unstable angina. Prior [...] PF, Split 07/30/2013 ??? Influenza Vaccine (Novel) [id number], Injectable 05/24/2009 ??? Influenza Vaccine w/Preservative, Split [...] contact one of the cardiology nurses at [facility] during normal business hours(Thursday through Thursday, 8 AM to 5 PM) at . During nonbusiness hours (evenings, nights, weekends, holidays), you may contact the superintendent communications acid mixer at . Return to work: -unemployed Driving: -No driving for 48 hours after catheterization. Follow up Appointments: ?? PCP: Coni Lim MD will see you on November 28, 2016 at 2:45 PM at [facility]. You may contact her office at [phone] with any questions or concerns ?? Cardiology: Please see Dr. Ling in [place], [place] on December 16 at 11:00 AM. His office may be contacted at with any questions or concerns. Home oxygen therapy: N/A Arrangements for VNA/home care: none Discharge References/Attachments None Keisha Rose APRN Nurse Practitioner-Department of Cardiology [email or web address] Pager [phone] Phone number: [phone] Fax number [phone] I have discussed this patient with attending [...] contact one of the cardiology nurses at [facility] during normal business hours(Thursday through Thursday, 8 AM to 5 PM) at . During nonbusiness hours (evenings, nights, weekends, holidays), you may contact the superintendent communications acid mixer at . Return to work: -unemployed Driving: -No driving for 48 hours after catheterization. Follow up Appointments: ?? PCP: Coni Lim MD will see you on November 28, 2016 at 2:45 PM at [facility]. You may contact her office at [phone] with any questions or concerns ?? Cardiology: Please see Dr. Ling in [place], [place] on December 16 at 11:00 AM. [...] Nicotine Replacement Therapy , November 23, 2012: https://www.federalregister.gov/articles//2013-95306/modificati fvu-rt-eislfpsy-bv-thrqzvnx-psbmzimrwxp-jxcnvsn-aytgbnzf-bwo-qsil-vhc-tlphmuc-hu man-use Nicotine lozenge instructions: Use the 4 [...] Nicotine Replacement Therapy , November 23, 2012: https://www.federalregister.gov/articles//2013-62673/modificati ery-kv-aslihxsj-oi-qbhuarpy-hspsewdzwnh-odnnsnd-tloiepxo-bpf-vhes-uqb-vopybrp-hu man-use Remember to cut down on regular coffee intake to no more than 2-3 eight ounce cups a day. Substitute decaf or herbal tea, water or any other non caffeine drink for regular coffee to avoid rising caffeine levels when you don't smoke. You have been referred to the [place] Quitline and should expect to receive a phone call from them within the next several days. If you do not hear from them within one week of discharge please call them.The number is in the [place] Tobacco Cessation folder you were given. Contact [...] Progress Note Patient Name: Romeo Coelho Service: PRODUCTION TRAINER / PA Responsible Attending: Roque Sanches MD Reason for continued hospitalization: -discharge -smoking cessation consult Active Problems: Active Hospital Problems Diagnosis ??? Unstable angina ??? CAD (coronary artery disease) -Coronary Angio 07/29/2013: 65% (FFR 0.74) mid LAD lesion s/p PCI with 3.5 X 18 mm [facility] - [facility] 2009 post abnormal nuc stress +IW, [...] mood and affect. Lab Comments: Recent Labs 11/25/1645111/24/1661911/23/16623 WBC 9.0 8.9 8.0 HGB 14.5 14.7 14.5 HCT 44.2 43.2 43.1 PLATELET 214 203 207 Recent Labs 11/21/162031 INR 1.0 Recent Labs 11/25/1645111/23/1662311/22/16 1006 11/22/16 0358 NA 142 142 -- 142 K 3.9 3.9 3.8 3.3* CL 108* 106 -- 106 CO2 19* 20* -- 21* BUN 10 10 -- 10 CREATININE 0.87 0.98 -- 0.85 Recent Labs 11/21/162031 AST 15 ALT 9 ALKPHOS 43 BILITOT 0.2 BILIDIR <0.1 Recent Labs 11/25/1645111/23/1624 11/22/16 0358 CALCIUM 9.5 9.6 8.8 Recent [...] priority for the procedure was Urgent. The [facility] indication for the procedure was PCI [...] continued tobacco use, and obesity transferred to [facility] for further evaluation of unstable angina. Underwent Cardiac catheterization to day (11/24/16)-CI of RCA Comfortable overnight Smoking cessation consult Plan: 1. Unstable angina LAD and LCx disease defined at prior cardiac catheterizations (at [facility] and [facility]) Describes crescendo anginal symptoms which have been present with exertion and at rest. Current devoid of chest pain Three sets of cardiac enzymes NOT elevated Echocardiogram (11/23/16): basal anterolateral, mid anterolateral, and mid inferolateral wall segments are hypokinetic (as described above) Clopidogrel 2. DM2 HgbA1c 5.6 Results for ROMEO COELHO Kiesha ( ) as of 11/25/2016 08:49 Ref. [...] Progress Note Patient Name: Romeo Coelho Service: PRODUCTION TRAINER / PA Responsible Attending: Roque Sanches MD Reason for continued hospitalization: Evaluation and management of unstable angina; cardiac cath anticipated today (11/24/16) Active Problems: Active Hospital Problems Diagnosis ??? Unstable angina ??? CAD (coronary artery disease) -Coronary Angio 07/29/2013: 65% (FFR 0.74) mid LAD lesion s/p PCI with 3.5 X 18 mm [facility] - [facility] 2009 post abnormal nuc stress +IW, [...] affect. Lab Comments: Recent Labs 11/24/16 0620 11/23/1662311/22/168 WBC 8.9 8.0 8.6 HGB 14.7 14.5 [...] continued tobacco use, and obesity transferred to [facility] for further evaluation of unstable angina. Cardiac catheterization today ( 7). Plan: 1. Unstable angina LAD and LCx disease defined at prior cardiac catheterizations (at [facility] and [facility]) Describes [...] Progress Note Patient Name: Romeo Coelho Service: PRODUCTION TRAINER / PA Responsible Attending: Roque Sanches MD Reason for continued hospitalization: Evaluation and management of unstable angina Active Problems: Active Hospital Problems Diagnosis ??? Unstable angina ??? CAD (coronary artery disease) -Coronary Angio 07/29/2013: 65% (FFR 0.74) mid LAD lesion s/p PCI with 3.5 X 18 mm [facility] 2009 post abnormal nuc stress +IW, [...] continued tobacco use, and obesity transferred to [facility] for further evaluation of unstable angina. Cardiac catheterization anticipated tomorrow AM (11/24/16). Plan: 1. Unstable angina LAD and LCx disease defined at prior cardiac catheterizations (at [facility] and [facility]) Describes [...] ejection fraction. Ejection fraction 60%. * Alana Patterson, RN - 11/23/2016 4:13 AM EDT OUTCOME [...] Progress Note Patient Name: Romeo Coelho Service: PRODUCTION TRAINER / PA Responsible Attending: Roque Sanches MD Reason for continued hospitalization: Evaluation and management of unstable angina Active Problems: Active Hospital Problems Diagnosis ??? Unstable angina ??? CAD (coronary artery disease) -Coronary Angio 07/29/2013: 65% (FFR 0.74) mid LAD lesion s/p PCI with 3.5 X 18 mm [facility] - [facility] 2009 post abnormal nuc stress +IW, [...] 43 BILITOT 0.2 BILIDIR <0.1 Recent Labs 11/22/16357 10/31/17 2032 CALCIUM 8.8 9.2 Recent Labs 11/22/16 0358 [...] continued tobacco use, and obesity transferred to [facility] for further evaluation of unstable angina. Cardiac catheterization anticipated soon. Plan: 1. Unstable angina LAD and LCx disease defined at prior cardiac catheterizations (at [facility] and [facility]) Describes [...] a 51 yr M ( Transferred from [facility]) PMH of CAD - multiple PCIs in past, latest cath in January 2014 ( at [facility] ) JACINDA x2 to LAD, prior instent [...] in ED. Symptoms reminiscent of his prior NC / Unstable angina. Compliant with meds . [...] of Onset ??? Myocardial Infarction Father 46 [place], CABG ??? Diabetes Mother ??? Hypertension Mother [...] son (age 18 months), daughter 11 in [place], [place]. Takes care of his mother who has dementia and he takes her to dialysis. is disabled. Has grown daughter who is 29 years old. 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 Similar in character to prior NC / UA; Nitrate responsive. ECG : nsr [...] in the outpatient cardiac rehabilitation program at [facility] was discussed. Patient agrees to a referral [...] Drew Pepe MD 50 mg at 11/24/16 210 ??? gabapentin (NEURONTIN) capsule 900 mg 900 [...] of Onset ??? Myocardial Infarction Father 46 [place], CABG ??? Diabetes Mother ??? Hypertension Mother ??? Hyperlipidemia Mother ??? Diabetes Brother ??? Diabetes Brother ??? Hypertension Brother ??? Hypertension Brother ??? Hyperlipidemia Brother ??? Hyperlipidemia Brother Reason for consult: Romeo A Coelho was referred by Diane Rose APRN [...] his brain. TREATMENT PLAN/RECOMMENDATIONS: [X ] Provide [facility] Tobacco Cessation Packet Discuss and prescribe (if [...] 8-end 1 mg PO BID Refer to [place] [facility] e-referral placed X Refer to [place] 802 Quits (fill out and fax enrollment [...] Follow up: with his PCP and the [place] quitline, 802QUITS Patient not ready to quit at this time. Follow up: X It is strongly recommended that the patient be discharged to home on Tobacco Treatment medication(s) as recommended above and follow up with either PCP and/or Quit line [id number]-NOW. X These recommendations have been discussed with the patient's primary team. DARCY STALEY APRN, [facility] Pager #[phone] [facility] Thoracic Surgery Time [...] Within the Past 30 Days: None at 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 I've been disabled for five years due to Fibromyalgia and Arthritis. Home Environment: Lives with his , Dasia in [place], [place]. Social & Family Supports/Community Resources: Dasia Coelho (Spouse) [address] [facility] [phone] (H) [phone] (M) Behavioral Health History: Per pt report, [...] Coverage: Yes, has Silver Script. Preferred Pharmacy: [id number] - [place], [place] - [address] [place] [address] ? [address] [facility] [address] ? Not a 24 hour pharmacy; exact hours not known Other: None Primary Care Provider: Coni Lim MD [phone] Patient/Caregiver Goals of Treatment: To return home and to his normal activities. Potential Needs for Transition of Care: Rehab/SNF: Pt has never been a pt in a rehab setting. Home Health: [facility] in the past (after right knee surgery). DME: Cane at home (doesn't consistently use it). Dialysis: N/A Community Resources: None Transportation: I may need RCT transportation. My car is in [facility] parking lot. I havethe only set of keys. Other: None Anticipated Barriers to Discharge/Special Considerations: No barriers noted at this time. Plan: A member of the Care Management team will continue to monitor progress, follow for continuity of care and assist with transition of care planning. SON MARLEY RN Pager: [phone] * Plan of Care - Christy Medina [...] Radiograph today, Echo and Cardiac Enzymes Pending Surface Mount Technology Operator ? Thursday more likely Thursday (pt. Informed) [...] online chart. Telemetry Report: 757: Intermittent SA, MI 0.17, QRS 0.08, RR 0.75, QT 0.35, [...] to the best of my ability. Romeo Coelho was offered copies of [facility] publications; Are You a Hospital Inpatient or Outpatient?and Medicare Rights and Protections. Notice has been signed along with date and time, a copy of notice made and given to patient/territory sales representative. Original notice to be scanned [...] Procedure Name Priority Date/Time Associated Diagnosis Comments SEISMOGRAPH COMPUTER SCAN 11/26/2016 12:00 AM EDT POCT GLUCOSE [...] 6:24 AM EDT DIFFERENTIAL, AUTOMATED Routine 11/24/19 6:24 AM EDT APTT STAT 11/23/2016 6:24 [...] Routine 11/22/2016 12:11 PM EDT CARDIAC ENZYMES ([facility]/CGP) STAT 11/22/2016 10:06 AM EDT APTT Routine 11/22/2016 10:06 AM EDT POTASSIUM STAT 11/22/2016 10:06 AM EDT XR CHEST PA AND LATERAL Routine 11/23/19 9:40 AM EDT POCT GLUCOSE Routine 11/22/2016 7:44 AM EDT EKG 12-LEAD Routine 11/22/2016 7:12 AM EDT Unstable angina BMP W/FASTING GLUCOSE Routine 11/22/2016 3:58 AM EDT HEMOGRAM Routine 11/22/2016 3:58 AM EDT DIFFERENTIAL, AUTOMATED Routine 11/23/19 3:58 AM EDT CARDIAC ENZYMES ([facility]/CGP) Routine 11/22/2016 3:58 AM EDT APTT STAT 11/22/2016 3:58 AM EDT CBC (WITH DIFF) Routine 11/22/2016 3:58 AM EDT LIPID PANEL (REFLEX DIRECT LDL) Routine 11/22/2016 3:58 AM EDT EKG 12-LEAD STAT 11/21/2016 8:34 PM EDT Unstable angina HEMOGRAM STAT 11/21/2016 8:32 PM EDT DIFFERENTIAL, AUTOMATED STAT 11/22/19 17 8:32 PM EDT CARDIAC ENZYMES ([facility]/CGP) STAT 11/21/2016 8:32 PM EDT APTT STAT [...] in this encounter Results * SCAN DOC: SEISMOGRAPH COMPUTER (11/26/2016 12:00 AM EDT) Anatomical Region Laterality Modality Other Narrative 11/26/2016 12:00 AM EDT Ordered by an unspecified provider. Scanning Provider MEDIA MGR SCAN EXT O RDR/RSLT * POCT Glucose (11/25/2016 7:42 AM EDT) [facility] Signature Glucose, POC 123 65 - 199 mg/dL [facility] Comment: Supplemental ranges: <140 mg/dL before meals <180 mg/dL all other times of the day Blood specimen (specimen) 11/25/2016 7:42 AM EDT 11/25/2016 7:42 AM EDT Roque Sanches MD POINT OF CARE TEST O RDERABLES Performing Organization Address [facility] Co de Phone Number [facility] [place] [address] * EKG 12 Lead (11/25/2016 7:23 AM EDT) Ventricular rate 70 BPM MUSE SYSTEM Atrial Rate 70 BPM MUSE SYSTEM P-R Interval 140 ms MUSE SYSTEM QRS Duration 88 ms MUSE SYSTEM Q-T Interval 388 ms MUSE SYSTEM QTC Calculated (Bezet) 419 ms MUSE SYSTEM Calculated P [place] 3 degrees MUSE SYSTEM Calculated R [place] 19 degrees MUSE SYSTEM Calculated T [place] 42 degrees MUSE SYSTEM INTERPRETATION Normal sinus rhythm Normal ECG When compared with ECG of 24-NOV-2016 19:05, (unconfirmed) No significant change was found I personally reviewed the tracing and edited the fellows interpretation Confirmed by fellow MD Kalin, Nessa Lee ([id number]) on 11/25/2016 10:44:22 AM Confirmed by MD Meli, Tigre ([id number]) on 11/25/2016 5:24:33 PM MUSE SYSTEM 11/25/2016 7:23 AM EDT 11/25/2016 5:24 PM EDT Roque Sanches MD ECG ORDERABLES Performing Organization Address [facility] Co de Phone Number MUSE SYSTEM * Cardiac Enzymes (11/25/2016 4:52 AM EDT) Troponin-T <0.03 <=0.03 ng/mL [facility] Comment: 0.03 ng/mL: Represents the 99th percentile upper reference limit for normals. >0.03 ng/mL: Elevated cardiac troponin T level indicative of myocardial damage. Diagnosis of acute, evolving or recent NC requires a typical rise and gradual fall [...] consensus document of the Joint Society of Cardiology/[place] College of Cardiology Committee for the redefinition of myocardial infarction. ??Journal of the [place] College of Cardiology 2000; 36: 959-969] Creatine Kinase 139 0 - 200 unit/L [facility] Comment:result rechecked-sb Blood specimen (specimen) Venous Draw / Unknown 11/25/2016 4:52 AM EDT 11/25/2016 5:41 AM EDT Narrative Resulting Agency Comment Spec In Lab Roque Sanches MD CHEMISTRY ORDERABLES [facility] [place] [address] * Differential, Automated (11/25/2016 4:52 AM EDT) Neutrophil % 61.6 % [facility] Neutrophil Absolute 5.56 1.70 - 6.10 x10(3)/[facility] Lymph % 26.8 % [facility] Lymphocytes Abs 2.4 0.9 - 3.2 x10(3)/[facility] Monocyte % 6.3 % [facility] Monocyte Abs 0.6 0.3 - 0.9 x10(3)/[facility] Eos % 4.1 % [facility] Eosinophils Abs 0.4 0.0 - 0.4 x10(3)/[facility] Basophil % 0.8 % [facility] Baso Absolute 0.1 0.0 - 0.1 x10(3)/[facility] Immature Gran % 0.40 [...] Immature Gran Absolute 0.04 0.00 - 0.04 x10(3)/mcL [facility] Blood specimen (specimen) 11/25/2016 4:52 AM EDT 11/25/2016 5:37 AM EDT Narrative Resulting Agency Comment Spec In Lab Roque Sanches MD HEMATOLOGY ORDERABLE S [facility] [place] [address] * (ABNORMAL) Hemogram (11/25/2016 4:52 AM EDT) White Blood Cell 9.0 4.0 - 9.5 x10(3)/mc L [facility] Red Blood Cell 5.04 4.58 - 5.54 x10(6)/mc L [facility] Hemoglobin 14.5 13.7 - 16.5 gm/dL [facility] Hematocrit 44.2 40.5 - 48.5 % [facility] Mean Cell Volume 87.7 82.9 - 93.1 fL [facility] Mean Cell Hemoglobin 28.8 27.5 - 32.1 pg [facility] Mean Cell Hemoglobin Concentration 32.8 32.0 - 35.7 gm/dL [facility] Platelet 214 145 - 357 x10(3)/ L [facility] RDW Standard Deviation 45.1(H) 36.0 - 45.0 [facility] RDW coefficient of variation 14.0(H) 11.4 - 13.8 % [facility] Mean Platelet Volume 11.1 7.6 - 12.9 [facility] NRBC% auto 0.0 % [facility] NRBC Absolute 0.000 0.000 - 0.000 x10(3)/ L [facility] Blood specimen (specimen) 11/25/2016 4:52 AM EDT 11/25/2016 5:37 AM EDT Narrative Resulting Agency Comment Spec In Lab Roque Sanches MD HEMATOLOGY ORDERABLE S [facility] [place] [address] * (ABNORMAL) BMP w/fasting Glucose (11/25/2016 4:52 [...] of Diabetes Mellitus, Position Statement from the [place] Diabetes Association. ??Diabetes Care, Volume 33, Supplement 1, Aug 2009 Blood Urea Nitrogen 10 10 - 20 mg/dL [facility] Creatinine 0.87 0.80 - 1.50 mg/dL [facility] Comment: Please note that the pediatric reference intervals supplied above were not validated at [facility]. Results from pediatric [...] LABORATORY Est Glomerular Filtration Rate >60 >=60 [facility] Comment: This estimated GFR [...] the following links into your internet browser. [email or web address] Blood specimen (specimen) 11/25/2016 4:52 AM EDT 11/25/2016 5:37 AM EDT Narrative Resulting Agency Comment Spec In Lab Roque Sanches MD CHEMISTRY ORDERABLES Performing Organization Address City/[facility] Co de Phone Number [facility] [place] [address] * EKG 12 Lead (11/24/2016 7:05 PM EDT) Ventricular rate 85 BPM MUSE SYSTEM Atrial Rate 85 BPM MUSE SYSTEM P-R Interval 152 ms MUSE SYSTEM QRS Duration 86 ms MUSE SYSTEM Q-T Interval 354 ms MUSE SYSTEM QTC Calculated (Bezet) 421 ms MUSE SYSTEM Calculated P [place] 55 degrees MUSE SYSTEM Calculated R [place] 44 degrees MUSE SYSTEM Calculated T [place] 40 degrees MUSE SYSTEM INTERPRETATION Normal sinus rhythm Normal ECG When compared with ECG of 24-NOV-2016 07:20, No significant change was found Confirmed by Wale Mckeon MD ([id number]) on 11/25/2016 4:12:17 PM MUSE SYSTEM 11/24/2016 7:05 PM EDT 11/25/2016 4:12 PM EDT Roque Sanches MD ECG ORDERABLES Performing Organization Address City/[facility] Co de Phone Number MUSE SYSTEM * CARDIAC CATHETERIZATION (11/24/2016 6:04 PM EDT) Anatomical Region Laterality Modality Other Narrative 11/24/2016 6:23 PM EDT ?[facility] ? Cardiac Catheterization/Intervention Report ? Patient Name: Romeo Coelho A. ? Procedure Date: 11/24/2016 ? A #: [id number] ? Primary Physician: Anton Horvath ? Case #: [id number] ? File Name: [id number] ? Catheterization Order Number: [id number] ? [facility] ? Final Report [place], [place] ? Patient Name: ? Romeo Coelho ? ID#: ?[id number] ? : ?1965 ? Procedure Date: ? November 24, 2016 ?Case #: ? [id number] ? Room: ? 6 ? Case Physician: ? Anton Horvath M.D. ?Start: ?17:26 ?Fellow: ? Katia Quiroz M.D. ? Admission: ??11/24/2016 ? Referring ? Reid Churchill M.D. ? Physicians: ?Coni Lim, M.D. ? Procedures: ?* Coronary Angiography ?* [...] presented with: unstable angina (w/i 60 days). [place] ?Cardiovascular Society angina class was III. This [...] regimen was changed as ?follows: Continue intermodal dispatcher aspirin and plavix. ? Comments: ?Classic anginal [...] Procedure Note Anton Horvath MD - 11/25/2016 [facility] Cardiac Catheterization/Intervention Report Patient Name: Romeo Coelho Procedure Date: 11/24/2016 A #: [id number] Primary Physician: Anton Horvath Case #: [id number] File Name: [id number] Catheterization Order Number: [id number] [facility] FinalReport [place], [place] Patient Name: Romeo Coelho ID#:[id number] :1965 Procedure Date: November 24, 2016 Case [...] presented with: unstable angina (w/i 60 days). [employer] angina class was III. This [...] time was 8.0 minutes, dose area product [id number] and air kerma was 1,689 mGY. [...] RDERABLES [facility] [place] [address] * POCT Glucose (11/24/2016 11:56 AM EDT) Glucose, POC 110 65 - 199 mg/dL [facility] Comment: Supplemental ranges: <140 mg/dL before meals <180 mg/dL all other times of the day Blood specimen (specimen) 11/24/2016 11:56 AM EDT 11/24/2016 11:56 AM EDT Roque Sanches MD POINT OF CARE TEST O RDERABLES Performing Organization Address City/[facility]/ZIP Co de Phone Number [facility] [place] [address] * POCT Glucose (11/24/2016 7:43 AM EDT) Glucose, POC 131 65 - 199 mg/dL [facility] Comment: Supplemental ranges: <140 mg/dL before meals <180 mg/dL all other times of the day Blood specimen (specimen) 11/24/2016 7:43 AM EDT 11/24/2016 7:43 AM EDT Roque Sanches MD POINT OF CARE TEST O RDERABLES Performing Organization Address [facility] Co de Phone Number [facility] [place] [address] * EKG 12 Lead (11/24/2016 7:20 AM EDT) Ventricular rate 65 BPM MUSE SYSTEM Atrial Rate 65 BPM MUSE SYSTEM P-R Interval 158 ms MUSE SYSTEM QRS Duration 90 ms MUSE SYSTEM Q-T Interval 396 ms MUSE SYSTEM QTC Calculated (Bezet) 411 ms MUSE SYSTEM Calculated P [place] 51 degrees MUSE SYSTEM Calculated R [place] 26 degrees MUSE SYSTEM Calculated T [place] 24 degrees MUSE SYSTEM INTERPRETATION Normal sinus rhythm Normal ECG When compared with ECG of 23-NOV-2016 07:16, No significant change was found I personally reviewed the tracing and edited the fellows interpretation Confirmed by fellow MD Kalin, Nessa Lee ([id number]) on 11/24/2016 8:23:27 AM Confirmed by MD Margoth, Rajni ([id number]) on 11/24/2016 6:22:34 PM MUSE SYSTEM 11/24/2016 7:20 AM EDT 11/24/2016 6:22 PM EDT Roque Sanches MD ECG ORDERABLES Performing Organization Address City/[facility]/ZIP Co de Phone Number MUSE SYSTEM * (ABNORMAL) Differential, Automated (11/24/2016 6:20 AM EDT) Pathologist [facility] Neutrophil % 54.5 % [facility] Neutrophil Absolute 4.85 1.70 - 6.10 x10(3)/[facility] LABORATORY Lymph % 31.5 % [facility] Lymphocytes Abs 2.8 0.9 - 3.2 x10(3)/[facility] LABORATORY Monocyte % 8.1 % [facility] Monocyte Abs 0.7 0.3 - 0.9 x10(3)/[facility] LABORATORY Eos % 4.4 % [facility] Eosinophils Abs 0.4 0.0 - 0.4 x10(3)/[facility] LABORATORY Basophil % 0.9 % [facility] Baso Absolute 0.1 0.0 - 0.1 x10(3)/[facility] LABORATORY Immature Gran % 0.60 % [facility] Comment: Immature granulocytes(IG's)percentage and absolute count will include metamyelocytes, myelocytes, and promyelocytes. Blood smears from CBCs yielding IG's will be scanned manually for concordance. If this scan disagrees with the automated IG or if promyelocytes are noted, a manual differential will be performed. Immature Gran Absolute 0.05(H) 0.00 - 0.04 x10(3)/[facility] LABORATORY Blood specimen (specimen) 11/24/2016 6:20 AM EDT 11/24/2016 6:34 AM EDT Narrative Resulting Agency Comment Spec In Lab Drew Pepe MD HEMATOLOGY ORDERABLE S [facility] [place] [address] * (ABNORMAL) Hemogram (11/24/2016 6:20 AM EDT) Pathologist [facility] White Blood Cell 8.9 4.0 - 9.5 x10(3)/[facility] LABORATORY Red Blood Cell 4.93 4.58 - 5.54 x10(6)/ L [facility] [...] S [facility] [place] [address] * (ABNORMAL) APTT (11/24/2016 6:20 AM EDT) [facility] Partial Thromboplastin Time 110(H) 25 - 35 sec [facility] Comment: The recommended therapeutic range for full dose, unfractionated heparin at [facility] is 80 ? [...] ORDERABLE S Performing Organization Address [facility] Co de Phone Number [facility] [place] [address] * (ABNORMAL) APTT (11/23/2016 11:27 PM EDT) Partial Thromboplastin Time 130(H) 25 - 35 sec [facility] Comment: The recommended therapeutic range for full dose, unfractionated heparin at [facility] is 80 ? [...] HEMATOLOGY ORDERABLE S Performing Organization Address [facility] Co de Phone Number [facility] [place] [address] * POCT Glucose (11/23/2016 7:36 PM EDT) Glucose, POC 131 65 - 199 mg/dL [facility] Comment: Supplemental ranges: <140 mg/dL before meals <180 mg/dL all other times of the day Blood specimen (specimen) 11/23/2016 7:36 PM EDT 11/23/2016 7:36 PM EDT Roque Sanches MD POINT OF CARE TEST O RDERABLES Performing Organization Address [facility] Co de Phone Number [facility] [place] [address] * POCT Glucose (11/23/2016 5:20 PM EDT) Glucose, POC 107 65 - 199 mg/dL [facility] Comment: Supplemental ranges: <140 mg/dL before meals <180 mg/dL all other times of the day Blood specimen (specimen) 11/23/2016 5:20 PM EDT 11/23/2016 5:20 PM EDT Roque Sanches MD POINT OF CARE TEST O RDERAAIRAM Performing Organization Address [facility]/ZIP Co de Phone Number [facility] [place] [address] * (ABNORMAL) APTT (11/23/2016 12:39 PM EDT) Partial Thromboplastin Time 68(H) 25 - 35 sec [facility] Comment: The recommended therapeutic range for full dose, unfractionated heparin at [facility] is 80 ? [...] ORDERABLE S Performing Organization Address [facility] Co de Phone Number [facility] [place] [address] * POCT Glucose (11/23/2016 11:47 AM EDT) Glucose, POC 116 65 - 199 mg/dL [facility] Comment: Supplemental ranges: <140 mg/dL before meals <180 mg/dL all other times of the day Blood specimen (specimen) 11/23/2016 11:47 AM EDT 11/23/2016 11:47 AM EDT Roque Sanches MD POINT OF CARE TEST O RDERABLES Performing Organization Address [facility] Co de Phone Number [facility] [place] [address] * POCT Glucose (11/23/2016 7:36 AM EDT) Glucose, POC 122 65 - 199 mg/dL [facility] Comment: Supplemental ranges: <140 mg/dL before meals <180 mg/dL all other times of the day Blood specimen (specimen) 11/23/2016 7:36 AM EDT 11/23/2016 7:36 AM EDT Roque Sanches MD POINT OF CARE TEST O RDERABLES Performing Organization Address [facility] de Phone Number [facility] [place] [address] * EKG 12 Lead (11/23/2016 7:16 AM EDT) Ventricular rate 72 BPM MUSE SYSTEM Atrial Rate 72 BPM MUSE SYSTEM P-R Interval 158 ms MUSE SYSTEM QRS Duration 90 ms MUSE SYSTEM Q-T Interval 382 ms MUSE SYSTEM QTC Calculated (Bezet) 418 ms MUSE SYSTEM Calculated P [place] 47 degrees MUSE SYSTEM Calculated R [place] 28 degrees MUSE SYSTEM Calculated T [place] 32 degrees MUSE SYSTEM INTERPRETATION Normal sinus rhythm Normal ECG When compared with ECG of 22-NOV-2016 07:12, No significant change was found Confirmed by MD ANIVAL, DEBORAH ([id number]) on 11/23/2016 1:58:05 PM MUSE SYSTEM 11/23/2016 7:16 AM EDT 11/23/2016 1:58 PM EDT Roque Sanches MD ECG ORDERABLES Performing Organization Address [facility] de Phone Number MUSE SYSTEM * (ABNORMAL) [...] of Diabetes Mellitus, Position Statement from the [place] [employer]. ??Diabetes Care, Volume 33, Supplement 1, Aug 2009 Blood Urea Nitrogen 10 10 - 20 mg/dL [facility] Creatinine 0.98 0.80 - 1.50 mg/dL [facility] Comment: Please note that the pediatric reference intervals supplied above were not validated at [facility]. Results from pediatric [...] LABORATORY Est Glomerular Filtration Rate >60 >=60 [facility] Comment: This estimated GFR [...] the following links into your internet browser. [email or web address] Blood specimen (specimen) 11/23/2016 6:24 AM EDT 11/23/2016 6:32 AM EDT Narrative Resulting Agency Comment Spec In Lab Roque Sanches MD CHEMISTRY ORDERABLES Performing Organization Address [facility]/ZIP Co de Phone Number [facility] [place] [address] * (ABNORMAL) APTT (11/23/2016 6:24 AM EDT) Partial Thromboplastin Time 103(H) 25 - 35 sec [facility] Comment: The recommended therapeutic range for full dose, unfractionated heparin at [facility] is 80 ? [...] ORDERABLE S Performing Organization Address [facility]/ZIP Co de Phone Number [facility] [place] [address] * Differential, Automated (11/23/2016 6:24 AM EDT) Neutrophil % 58.2 % [facility] Neutrophil Absolute 4.63 1.70 - 6.10 x10(3)/[facility] LABORATORY Lymph % 29.0 % [facility] Lymphocytes Abs 2.3 0.9 - 3.2 x10(3)/[facility] LABORATORY Monocyte % 7.3 % [facility] Monocyte Abs 0.6 0.3 - 0.9 x10(3)/[facility] LABORATORY Eos % 4.1 % [facility] Eosinophils Abs 0.3 0.0 - 0.4 x10(3)/[facility] LABORATORY Basophil % 1.0 % [facility] Baso Absolute 0.1 0.0 - 0.1 x10(3)/[facility] LABORATORY Immature Gran % 0.40 [...] S [facility] [place] [address] * (ABNORMAL) Hemogram (11/23/2016 6:24 AM EDT) [...] ORDERABLE S Performing Organization Address [facility]/ZIP Co de Phone Number [facility] [place] [address] * (ABNORMAL) APTT (11/23/2016 12:03 AM EDT) Partial Thromboplastin Time 116(H) 25 - 35 sec [facility] Comment: The recommended therapeutic range for full dose, unfractionated heparin at [facility] is 80 ? [...] ORDERABLE S Performing Organization Address [facility] Co de Phone Number [facility] [place] [address] * POCT Glucose (11/22/2016 7:45 PM EDT) Glucose, POC 102 65 - 199 mg/dL [facility] Comment: Supplemental ranges: <140 mg/dL before meals <180 mg/dL all other times of the day Blood specimen (specimen) 11/22/2016 7:45 PM EDT 11/22/2016 7:45 PM EDT Roque Sanches MD POINT OF CARE TEST O RDERABLES Performing Organization Address [facility]/ZIP Co de Phone Number [facility] [place] [address] * Cardiac Enzymes (11/22/2016 5:11 PM EDT) [facility] Troponin-T <0.03 <=0.03 ng/mL [facility] Comment: 0.03 ng/mL: Represents the 99th percentile upper reference limit for normals. >0.03 ng/mL: Elevated cardiac troponin T level indicative of myocardial damage. Diagnosis of acute, evolving or recent NC requires a typical rise and gradual fall [...] consensus document of the Joint Society of Cardiology/[place] [employer] Committee for the redefinition of myocardial infarction. ??Journal of the [place] College of [employer]iology 2000; 36: 959-969] Creatine Kinase 46 0 - 200 unit/L [facility] Blood specimen (specimen) 11/22/2016 5:11 PM EDT 11/22/2016 5:15 PM EDT Narrative Resulting Agency Comment Spec In Lab Roque Sanches MD CHEMISTRY ORDERABLES [facility] [place] [address] * (ABNORMAL) APTT (11/22/2016 5:11 PM EDT) [facility] Partial Thromboplastin Time 76(H) 25 - 35 sec [facility] Comment: The recommended therapeutic range for full dose, unfractionated heparin at [facility] is 80 ? [...] ORDERABLE S Performing Organization Address [facility]/ZIP Co de Phone Number [facility] [place] [address] * POCT Glucose (11/22/2016 4:50 PM EDT) Glucose, POC 100 65 - 199 mg/dL [facility] Comment: Supplemental ranges: <140 mg/dL before meals <180 mg/dL all other times of the day Blood specimen (specimen) 11/22/2016 4:50 PM EDT 11/22/2016 4:50 PM EDT Rqoue Sanches MD POINT OF CARE TEST O RDERABLES Performing Organization Address [facility]/ZIP Co de Phone Number [facility] [place] [address] * ECHO COMPLETE W CONTRAST (11/22/2016 12:59 PM EDT) EF 60 HEARTLAB SYSTEM Anatomical Region Laterality Modality Other 11/22/2016 Narrative 11/22/2016 1:38 PM EDT Procedure: ?Transthoracic Echocardiogram Patient: ?LAQUITA Pop ? (Age): 1965(51y) Med Rec#: ? [id number] ?Sex: ?M ? Site Loc: ? [facility] ?Ht / Wt: ??178(cm)/95(kg) Pt. Loc: ?Adult Floor ? BSA: ?2.13 Study Date: ?? 11/22/2016 ?Pt. Type: Inpatient Tape: ? Referring: Roque Sanches ([id number]) Reading: Roque Sanches ([id number]) Loader Operator: Jorge A Street Diagnosis: *ICD-10-PCS Unstable angina (I20.0) CPT Codes: *Echo Full (24695) *Spectral Doppler (93807) *Color Doppler (12264) *Optison ([id number]) Rhythm: ? Sinus BP: ? 113/70 SUMMARY: [...] E-wave Vmax ?0.5 ?m/sec ? MV deceleration [id number] ?msec ? MV A-wave Vmax ?0.4 ?m/sec [...] ? Mid-Inferior ?Normal ? Mid-Inferoseptal ?Normal ? [place]-Septal ? Normal ? [place]-Anterior ? Normal ? [place]-Lateral ?Normal ? [place]-Inferior ? Normal ? [place]-Tip ?Normal ? This report has been electronically signed by: Roque Sanches M.D. ? 11/22/2016 13:38:29 Images reviewed and interpretation verified [facility] Cardiac Ultrasound Laboratory Procedure Note Roque Sanches MD - 11/22/2016 Procedure: Transthoracic Echocardiogram Patient: LAQUITA HARRIS(Age): 1965(51y) Med Rec#: [id number] Sex: M Site Loc: [facility] Ht / Wt: 178(cm)/95(kg) Pt. Loc: Adult Floor BSA: 2.13 Study Date: 11/22/2016 Pt. Type: Inpatient Tape: Referring: Roque Sanches ([id number]) Reading: Roque Sanches ([id number]) Loader Operator: Jorge A Street Diagnosis: *ICD-10-PCS Unstable angina (I20.0) CPT Codes: *Echo Full (54426) *Spectral Doppler (34376) *Color Doppler (59592) *Optison ([id number]) Rhythm: Sinus BP: 113/70 SUMMARY: 1. The [...] MV E-wave Vmax 0.5 m/sec MV deceleration [id number] msec MV A-wave Vmax 0.4 m/sec MV [...] Hypokinetic Mid-Posterolateral Hypokinetic Mid-Inferior Normal Mid-Inferoseptal Normal [place]-Septal Normal [place]-Anterior Normal [place]-Lateral Normal [place]-Inferior Normal [place]-Tip Normal This report has been electronically signed by: Roque Sanches M.D. 11/22/2016 13:38:29 Images reviewed and interpretation verified [facility] Cardiac Ultrasound Laboratory Drew Pepe MD ECHO [...] RDERABLES [facility] [place] [address] * Potassium (11/22/2016 10:06 AM EDT) Potassium [...] ORDERABLES [facility] [place] [address] * Cardiac Enzymes (11/22/2016 10:06 AM EDT) Pathologist [facility] Troponin-T <0.03 <=0.03 ng/mL [facility] Comment: 0.03 ng/mL: Represents the 99th percentile upper reference limit for normals. >0.03 ng/mL: Elevated cardiac troponin T level indicative of myocardial damage. Diagnosis of acute, evolving or recent NC requires a typical rise and gradual fall [...] consensus document of the Joint Society of Cardiology/[place] College [employer]iology Committee for the redefinition of myocardial infarction. ??Journal of the [place] College of Cardiology 2000; 36: 959-969] Creatine Kinase 48 0 - 200 unit/L [facility] Blood specimen (specimen) 11/22/2016 10:06 AM EDT 11/22/2016 10:16 AM EDT Narrative Resulting Agency Comment Spec In Lab Drew Pepe MD CHEMISTRY ORDERABLES Performing Organization Address [facility] Co de Phone Number [facility] [place] [address] * (ABNORMAL) APTT (11/22/2016 10:06 AM EDT) [facility] Signature Partial Thromboplastin Time 104(H) 25 - 35 sec [facility] Comment: The recommended therapeutic range for full dose, unfractionated heparin at [facility] is 80 ? [...] ORDERABLE S Performing Organization Address [facility] Co de Phone Number [facility] [place] [address] * XR Chest PA & Lateral (Generic) [...] O RDERABLES Performing Organization Address [facility] Co de Phone Number [facility] [place] [address] * EKG 12 Lead (11/22/2016 7:12 AM EDT) Ventricular rate 74 BPM MUSE SYSTEM Atrial Rate 74 BPM MUSE SYSTEM P-R Interval 146 ms MUSE SYSTEM QRS Duration 92 ms MUSE SYSTEM Q-T Interval 382 ms MUSE SYSTEM QTC Calculated (Bezet) 424 ms MUSE SYSTEM Calculated P [place] 34 degrees MUSE SYSTEM Calculated R [place] 26 degrees MUSE SYSTEM Calculated T [place] 27 degrees MUSE SYSTEM INTERPRETATION Normal sinus rhythm Normal ECG When compared with ECG of 21-NOV-2016 20:34, (unconfirmed) No significant change was found Confirmed by MD Walton Douglas ([id number]) on 11/22/2016 10:51:21 AM MUSE SYSTEM 11/22/2016 7:12 AM EDT 11/22/2016 10:51 AM EDT Roque Sanches MD ECG ORDERABLES Performing Organization Address [facility] de Phone Number MUSE SYSTEM * (ABNORMAL) [...] greater than or equal to 190 mg/dL. http://circ.ahajournals.org/content/early/.cir.0737581425.65782.7a Adults aged 40-75 with LDL 70-189 mg/dL should have their 10 year ASCVD risk estimated with the ACC/AHA ASCVD risk distribution estimator http://tools.acc.org/SSLYD-Hvig-Cvrfrvcov/ Statin should be discussed if risk greater [...] ORDERABLES [facility] [place] [address] * Cardiac Enzymes (11/22/2016 3:58 AM EDT) [facility] Troponin-T <0.03 <=0.03 ng/mL [facility] Comment: 0.03 ng/mL: Represents the 99th percentile upper reference limit for normals. >0.03 ng/mL: Elevated cardiac troponin T level indicative of myocardial damage. Diagnosis of acute, evolving or recent NC requires a typical rise and gradual fall [...] consensus document of the Joint Society of Cardiology/[place] College [employer]iology Committee for the redefinition of myocardial infarction. ??Journal of the [place] College of Cardiology 2000; 36: 959-969] Creatine Kinase 50 0 - 200 unit/L [facility] Blood specimen (specimen) Venous Draw / Unknown 11/22/2016 3:58 AM EDT 11/22/2016 4:13 AM EDT Narrative Resulting Agency Comment Spec In Lab Roque Sanches MD CHEMISTRY ORDERABLES [facility] [place] [address] * Differential, Automated (11/22/2016 3:58 AM EDT) Neutrophil % 56.6 % [facility] Neutrophil Absolute 4.86 1.70 - 6.10 x10(3)/[facility] LABORATORY Lymph % 30.3 % [facility] Lymphocytes Abs 2.6 0.9 - 3.2 x10(3)/[facility] LABORATORY Monocyte % 7.7 % [facility] Monocyte Abs 0.7 0.3 - 0.9 x10(3)/[facility] LABORATORY Eos % 4.5 % [facility] Eosinophils Abs 0.4 0.0 - 0.4 x10(3)/[facility] LABORATORY Basophil % 0.6 % [facility] Baso Absolute 0.0 0.0 - 0.1 x10(3)/[facility] LABORATORY Immature Gran % 0.30 [...] Immature Gran Absolute 0.03 0.00 - 0.04 x10(3)/[facility] LABORATORY Blood specimen (specimen) 11/22/2016 3:58 AM EDT 11/22/2016 4:13 AM EDT Narrative Resulting Agency Comment Spec In Lab Roque Sanches MD HEMATOLOGY ORDERABLE S [facility] [place] [address] * (ABNORMAL) Hemogram (11/22/2016 3:58 AM EDT) White Blood Cell 8.6 4.0 - 9.5 x10(3)/[facility] LABORATORY Red Blood Cell 4.80 4.58 - 5.54 x10(6)/[facility] LABORATORY Hemoglobin 13.8 13.7 - 16.5 gm/dL [...] CENTER LABORATORY Platelet 219 145 - 357 x10(3)/[facility] LABORATORY RDW Standard Deviation 44.7 36.0 - [...] S [facility] [place] [address] * (ABNORMAL) BMP w/fasting Glucose (11/22/2016 3:58 [...] of Diabetes Mellitus, Position Statement from the [place] [employer]. ??Diabetes Care, Volume 33, Supplement 1, Aug 2009 Blood Urea Nitrogen 10 10 - 20 mg/dL [facility] Creatinine 0.85 0.80 - 1.50 mg/dL [facility] Comment: Please note that the pediatric reference intervals supplied above were not validated at [facility]. Results from pediatric [...] LABORATORY Est Glomerular Filtration Rate >60 >=60 [facility] Comment: This estimated GFR [...] the following links into your internet browser. [email or web address] Blood specimen (specimen) 11/22/2016 3:58 AM EDT 11/22/2016 4:13 AM EDT Narrative Resulting Agency Comment Spec In Lab Roque Sanches MD CHEMISTRY ORDERABLES [facility] [place] [address] * (ABNORMAL) APTT (11/22/2016 3:58 AM EDT) [facility] Partial Thromboplastin Time 44(H) 25 - 35 sec [facility] Comment: The recommended therapeutic range for full dose, unfractionated heparin at [facility] is 80 ? [...] ORDERABLE S Performing Organization Address [facility] Co de Phone Number [facility] [place] [address] * EKG 12 Lead (11/21/2016 8:34 PM EDT) Ventricular rate 72 BPM MUSE SYSTEM Atrial Rate 72 BPM MUSE SYSTEM P-R Interval 138 ms MUSE SYSTEM QRS Duration 86 ms MUSE SYSTEM Q-T Interval 382 ms MUSE SYSTEM QTC Calculated (Bezet) 418 ms MUSE SYSTEM Calculated P [place] -2 degrees MUSE SYSTEM Calculated R [place] 16 degrees MUSE SYSTEM Calculated T [place] 16 degrees MUSE SYSTEM INTERPRETATION Normal sinus rhythm Normal ECG When compared with ECG of 30-JUL-2013 08:41, No significant change was found Confirmed by MD Anton, Asif ([id number]) on 11/22/2016 10:49:32 AM MUSE SYSTEM 11/21/2016 8:34 PM EDT 11/22/2016 10:49 AM EDT Drew Pepe MD ECG ORDERABLES Performing Organization Address [facility] Co de Phone Number MUSE [...] 36: Suppl. 1, S67-74 Estimated Average Glucose 114 mg/dL [facility] [...] resources are available on the ADA website: http://[employer] are family [employer]/DHMCadacalc Ashok PIMENTEL, Abdulkadir J, Jamie R, et al. ??Translating the A1C assay into estimated average glucose values. ??Diabetes Care 2008:31(8):2026-3020. Blood specimen (specimen) Venous Draw / Unknown 11/21/2016 8:32 PM EDT 11/22/2016 12:39 AM EDT Narrative Resulting Agency Comment Spec In Lab Drew Pepe MD CHEMISTRY ORDERABLES Performing Organization Address [facility] Co de Phone Number [facility] [place] [address] * TSH (11/21/2016 8:32 PM EDT) Thyroid Stimulating Hormone 2.29 0.27 - 4.20 mcIU/mL [facility] Blood specimen (specimen) Venous Draw / Unknown 11/21/2016 8:32 PM EDT 11/21/2016 8:40 PM EDT Narrative Resulting Agency Comment Spec In Lab Drew Pepe MD CHEMISTRY ORDERABLES Performing Organization Address [facility] Co de Phone Number [facility] [place] [address] * (ABNORMAL) Differential, Automated (11/21/2016 8:32 PM EDT) Neutrophil % 38.3 % [facility] Neutrophil Absolute 3.02 1.70 - 6.10 x10(3)/[facility] LABORATORY Lymph % 48.7 % [facility] Lymphocytes Abs 3.8(H) 0.9 - 3.2 x10(3)/[facility] LABORATORY Monocyte % 7.3 % [facility] Monocyte Abs 0.6 0.3 - 0.9 x10(3)/[facility] LABORATORY Eos % 4.4 % [facility] Eosinophils Abs 0.4 0.0 - 0.4 x10(3)/[facility] LABORATORY Basophil % 0.9 % [facility] Baso Absolute 0.1 0.0 - 0.1 x10(3)/[facility] LABORATORY Immature Gran % 0.40 % [facility] Comment: Immature granulocytes(IG's)percentage and absolute count will include metamyelocytes, myelocytes, and promyelocytes. Blood smears from CBCs yielding IG's will be scanned manually for concordance. If this scan disagrees with the automated IG or if promyelocytes are noted, a manual differential will be performed. Immature Gran Absolute 0.03 0.00 - 0.04 x10(3)/[facility] LABORATORY Blood specimen (specimen) 11/21/2016 8:32 PM EDT 11/21/2016 8:37 PM EDT Narrative Resulting Agency Comment Spec In Lab Drew Pepe MD HEMATOLOGY ORDERABLE S [facility] [place] [address] * Hemogram (11/21/2016 8:32 PM EDT) White Blood Cell 7.9 4.0 - 9.5 x10(3)/[facility] LABORATORY Red Blood Cell 4.64 4.58 - 5.54 x10(6)/[facility] LABORATORY Hemoglobin 13.9 13.7 - [...] CENTER LABORATORY Platelet 179 145 - 357 x10(3)/[facility] LABORATORY RDW Standard Deviation 44.3 36.0 - 45.0 [facility] LABORATORY RDW coefficient of variation 13.8 11.4 - 13.8 % [facility] Mean Platelet Volume 10.8 7.6 - 12.9 [facility] LABORATORY NRBC% auto 0.0 % [facility] NRBC Absolute 0.000 0.000 - 0.000 x10(3)/[facility] LABORATORY Blood specimen (specimen) 11/21/2016 8:32 PM EDT 11/21/2016 8:37 PM EDT Narrative Resulting Agency Comment Spec In Lab Drew Pepe MD HEMATOLOGY ORDERABLE S [facility] [place] [address] * Cardiac Enzymes (11/21/2016 8:32 PM EDT) Troponin-T <0.03 <=0.03 ng/mL [facility] Comment: 0.03 ng/mL: Represents the 99th percentile upper reference limit for normals. >0.03 ng/mL: Elevated cardiac troponin T level indicative of myocardial damage. Diagnosis of acute, evolving or recent NC requires a typical rise and gradual fall [...] consensus document of the Joint Society of Cardiology/[place] College of Cardiology Committee for the redefinition of myocardial infarction. ??Journal of the [place] College of Cardiology 2000; 36: 959-969] Creatine Kinase 64 0 - 200 unit/L [facility] Blood specimen (specimen) 11/21/2016 8:32 PM EDT 11/21/2016 8:37 PM EDT Narrative Resulting Agency Comment Spec In Lab Drew Pepe MD CHEMISTRY ORDERABLES Performing Organization Address [facility] Co de Phone Number [facility] [place] [address] * APTT (11/21/2016 8:32 PM EDT) Partial Thromboplastin Time 32 25 - 35 sec [facility] Comment: The recommended therapeutic range for full dose, unfractionated heparin at [facility] is 80 ? [...] ORDERABLE S Performing Organization Address [facility] Co de Phone Number [facility] [place] [address] * Prothrombin Time (11/21/2016 8:32 PM EDT) [...] ORDERABLE S Performing Organization Address [facility] Co de Phone Number [facility] [place] [address] * Hepatic Function Panel (11/21/2016 8:32 PM [...] CHEMISTRY ORDERABLES Performing Organization Address [facility] Co de Phone Number [facility] [place] [address] * (ABNORMAL) Basic Metabolic Panel (non-fasting) (11/21/2016 [...] intervals supplied above were not validated at [facility]. Results from pediatric [...] LABORATORY Est Glomerular Filtration Rate >60 >=60 [facility] Comment: This estimated GFR [...] the following links into your internet browser. [email or web address] Blood specimen (specimen) 11/21/2016 8:32 PM EDT 11/21/2016 8:37 PM EDT Narrative Resulting Agency Comment Spec In Lab Drew Pepe MD CHEMISTRY ORDERABLES [facility] [place] [address] * pro-Brain Natriuretic Peptide (11/21/2016 8:32 PM EDT) NT-proBNP 65 <=125 pg/mL [facility] Blood specimen (specimen) 11/21/2016 8:32 PM EDT 11/21/2016 8:37 PM EDT Narrative Resulting Agency Comment Spec In Lab Drew Pepe MD CHEMISTRY ORDERABLES [facility] [place] [address] * POCT Glucose (11/21/2016 8:12 PM EDT) Glucose, POC 80 65 - 199 mg/dL [facility] Comment: Supplemental ranges: <140 mg/dL before meals <180 mg/dL all other times of the day Blood specimen (specimen) 11/21/2016 8:12 PM EDT 11/21/2016 8:12 PM EDT Valentín Oreilly MD POINT OF CARE TEST ORDERABLES Performing Organization Address City/[facility]/ZIP Co de Phone Number [facility] [place] [address] documented in this encounter Visit Diagnoses Diagnosis Unstable angina- Primary Intermediate coronary syndrome Unstable angina Intermediate coronary syndrome DM (diabetes mellitus) Type II or unspecified type diabetes mellitus without mention of complication, not stated as uncontrolled CAD (coronary artery disease) Coronary atherosclerosis of unspecified type of vessel, stillaguamish or graft HTN (hypertension) Unspecified essential hypertension [...] PRN, Starting on Thu11/22/16 at 0013, Until Tu11/25/16 at 1305, back pain, Routine Given 11/23/2016 [...] area)194 ([facility] Unhold - Provider: Admin Adt) 0902 (Given - Provider: Venancio Bourgeois, VERO) atorvastatin (LIPITOR) tablet 80 mg 80 mg, Oral, EVERY EVENING, First dose on 11/22/16 at 1700, Until Discontinued, Routine 1621 (Given - Provider: Esha Chen RN) 1658 (Given - Provider: Esha Chen RN)181 ([employer] [facility] Hold - Provider: Admin Adt - Reason: Transfer to a Procedural area)1940 ([employer] [facility] Unhold - Provider: Admin Adt) buPROPion (WELLBUTRIN SR or ZYBAN) SR tablet 150 mg 150 mg, Oral, 2 TIMES DAILY, First dose on 11/22/16 at 0030, Until Discontinued, DO NOT CRUSH OR OPEN, Routine 0803 (Given - Provider: Esha Chen RN)2058 (Given - Provider: Christy Medina RN) 0814 (Given - Provider: Esha Chen RN)1811 ([employer] [facility] Hold - Provider: Admin Adt - Reason: Transfer to a Procedural area)1940 ([employer] [facility] Unhold - Provider: Admin Adt)2108 (Given - Provider: Venice Huffman RN) 0900 (Given - Provider: Venancio Bourgeois, VERO) clopidogrel (PLAVIX) tablet 75 mg 75 mg, Oral, DAILY, First dose on 11/22/16 at 0900, Until Discontinued, Routine 0804 (Given - Provider: Esha Chen RN) 0815 (Given - Provider: Esha Chen RN)181 ([employer] [facility] Hold - Provider: Admin Adt - Reason: Transfer to a Procedural area)1940 ([employer] [facility] Unhold - Provider: Admin Adt) 0858 (Given - Provider: Venancio Bourgeois, VERO) diaZEPam (VALIUM) tablet 5 mg (COMPLETED) 5 mg, Oral, ONCE, 1 dose, On Thu11/24/16 at 1730, Cath (Day of Procedure), Routine 170 (Given - Provider: Esha Chen, VERO) diphenhydrAMINE (BENADRYL) capsule 25 mg (COMPLETED) 25 [...] 0815 (Given - Provider: Esha Chen RN)1811 ([facility] Hold - Provider: Admin Adt - Reason: Transfer to a Procedural area)1940 ([employer] [facility] Unhold - Provider: Admin Adt)2107 (Given - [...] RN)1447 (Given - Provider: Esha Chen RN)1811 ([facility] Hold - Provider: Admin Adt - Reason: Transfer to a Procedural area)1940 ([employer] [facility] Unhold - Provider: Admin Adt) 0551 (Given - Provider: Venice Huffman, VERO) gabapentin (NEURONTIN) capsule 900 mg 900 mg, Oral, NIGHTLY, First dose on 11/22/16 at 0030, Until Discontinued, Routine 2058 (Given - Provider: Christy Medina RN) 1811 ([facility] Hold - Provider: Admin Adt - Reason: Transfer to a Procedural area)1940 ([employer] [facility] Unhold - Provider: Admin Adt)2142 (Given - [...] RN - Reason: Order parameters not met)181 ([employer] [facility] Hold - Provider: Admin Adt - Reason: Transfer to a Procedural area)1940 ([employer] [facility] Unhold - Provider: Admin Adt) 0730 (Not Given - Provider: Venancio Bourgeois RN - Reason: Order parameters not met) isosorbide mononitrate (IMDUR) CR tablet 120 mg 120 mg, Oral, DAILY, First dose on 11/22/16 at 0900, Until Discontinued, DO NOT CRUSH OR OPEN, Routine 0808 (Given - Provider: Esha Chen RN) 0815 (Given - Provider: Esha Chen RN)1811 ([facility] Hold - Provider: Admin Adt - Reason: Transfer to a Procedural area)1940 ([employer] [facility] Unhold - Provider: Admin Adt) 0858 (Given - Provider: Venancio Bourgeois RN) losartan (COZAAR) tablet 12.5 mg 12.5 mg, Oral, DAILY, First dose on 11/22/16 at 0900, Until Discontinued, Routine 0807 (Given - Provider: Esha Chen RN) 0816 (Given - Provider: Esha Chen RN)181 ([facility] Hold - Provider: Admin Adt - Reason: Transfer to a Procedural area)1940 ([employer] [facility] Unhold - Provider: Admin Adt) 0857 (Given [...] 0816 (Given - Provider: Esha Chen RN)1811 ([employer] [facility] Hold - Provider: Admin Adt - Reason: Transfer to a Procedural area)1940 ([employer] [facility] Unhold - Provider: Admin Adt)2107 (Given - Provider: Venice Huffman, VERO) 899 (Given - Provider: Venancio Bourgeois, VERO) pantoprazole (PROTONIX) tablet 40 mg 40 mg, Oral, DAILY, First dose on 11/22/16 at 0900, Until Discontinued, DO NOT CRUSH OR OPEN, Routine 08 (Given - Provider: Esha Chen RN) 08 (Given - Provider: Esha Chen RN)1811 ([facility] Hold - Provider: Admin Adt - Reason: Transfer to a Procedural area)1940 ([employer] [facility] Unhold - Provider: Admin Adt) 900 (Given - Provider: Venancio Bourgeois, VERO) pramipexole (MIRAPEX) tablet 0.5 mg 0.5 mg, Oral, NIGHTLY, First dose on 11/22/16 at 0030, Until Discontinued, Routine 2058 (Given - Provider: Christy Medina RN) 1811 ([facility] Hold - Provider: Admin Adt - Reason: Transfer to a Procedural area)1940 ([employer] [facility] Unhold - Provider: Admin Adt)2107 (Given - [...] Adt)2111 (Given - Provider: Venice Huffman, VERO) 0900 (Due - Provider: Admin Adt) sodium chloride [...] RN) 0909 (Given - Provider: Esha Chen RN)1811 (OCT [...] Adt)2107 (Given - Provider: Venice Huffman RN) Continuous Medication Order 11/23/2016 11/24/2016 11/25/2016 heparin [...] (New Bag - Provider: Esha Chen RN)181 ([facility] Hold [...] (Given - Provider: Esha Chen RN) 181 ([facility] Hold - Provider: Admin Adt - Reason: Transfer to a Procedural area)1940 ([facility] Unhold - Provider: Admin Adt) cyclobenzaprine (FLEXERIL) tablet 10 mg 10 mg, Oral, 3 TIMES DAILY PRN, Starting on 11/22/16 at 0013, Until Thu11/25/16 at 1305, Muscle spasms, Routine 1811 ([facility] Hold - Provider: Admin Adt - Reason: Transfer to a Procedural area)1940 ([employer] [facility] Unhold - Provider: Admin Adt) dextrose 50% [...] duration of the active insulin., Routine 1811 ([employer] [facility] Hold - Provider: Admin Adt - Reason: Transfer to a Procedural area)1940 ([employer] [facility] [employer] Unhold - Provider: Admin Adt) fentaNYL 50 [...] of the active insulin. , Routine 1811 ([employer] [facility] [employer] Hold - Provider: Admin Adt - Reason: Transfer to a Procedural area)1940 ([employer] [...] (Given - Provider: Esha Chen RN) 1811 ([employer] [facility] Hold - Provider: Admin Adt - Reason: Transfer to a Procedural area)1940 ([employer] [...] for discomfort with PIV insertion, Routine 1811 ([employer] [facility] Hold - Provider: Admin Adt - Reason: Transfer to a Procedural area)1940 ([employer] [facility] Unhold - Provider: Admin Adt) midazolam (PF) (VERSED) 1 mg/mL multi-dose injection (CANCELED) ONCE PRN, Starting on 11/24/16 at 1727, Until Thu11/24/16 at 1935, Cath (Intra-Procedure), Routine 1727 (Given - Provider: Wyatt Becker) nitroGLYcerin (NITROSTAT) [...] last 24 to 72 hours., Routine 1811 ([employer] [facility] Hold - Provider: Admin Adt - Reason: Transfer to a Procedural area)1940 ([employer] [facility] Unhold - Provider: Admin Adt) nitroGLYcerin 100 mcg/mL intracoronary dilution (CANCELED) ONCE PRN, Starting on Thu11/24/16 at 1743, Until Thu11/24/16 at 1941, Cath (Intra-Procedure), Routine 1743 (Given - Provider: Anton Horvath MD)1757 (Given - Provider: Anton Horvath MD) oxyCODONE (ROXICODONE) immediate release tablet 10 mg 10 mg, Oral, 4 TIMES DAILY PRN, Starting on 11/22/16 at 0013, Until Thu11/25/16 at 1305, back pain, Routine 1617 (Given - Provider: Esha Chen RN) 1811 ([employer] [facility] Hold - Provider: Admin Adt - Reason: Transfer to a Procedural area)1940 ([employer] [facility] [employer] Unhold - Provider: Admin Adt) sodium chloride 0.9 % flush 5-20 mL 5-20 mL, Intravenous, EVERY 1 MIN PRN, Starting on 11/22/16 at 0013, Until Thu11/25/16 at 1305, flush, Flush pertains to all indwelling lines. Flush per protocol found in the job aid using the link provided on this medication record., Routine 1811 ([employer] [facility] Hold - Provider: Admin Adt - Reason: Transfer to a Procedural area)1940 ([employer] [facility] [employer] Unhold - Provider: Admin Adt) sodium chloride 0.9 % flush 5-20 mL 5-20 mL, Intravenous, EVERY 1 MIN PRN, Starting on Thu11/21/16 at 2009, Until Thu11/25/16 at 1305, flush, Flush pertains to all indwelling lines. Flush per protocol found in the job aid using the link provided on this medication record., Routine 1811 ([facility] Hold - Provider: Admin Adt - Reason: Transfer to a Procedural area)1940 ([facility] Unhold - Provider: Admin Adt) sodium [...] CONTINUOUS, Starting on Thu11/21/16 at 2030, Until 11/24/16 at 2205, BEGIN infusion at 1,000 units [...] Routine documented in this encounter Care Teams Skimmer Relationship Specialty Start Date End Date Coni Lim MD [address] [place] [address] PCP - General 07/16/10 documented as of this encounter
--- OUTSIDE RECORDS SUMMARY | 2024-08-19 14:54 | XMS_ITS | Encounter Summary ---
Author Organization [facility] [place] [address] Care Team Providers Care Interactive Media Project Manager Name Role Phone Coni Lim MD Primary Care Provider [phone] Encounter Details Date Type Department Care Team (Late st Contact Info) Description 08/07/2017 Notes Only Cardiology at [address] [phone] Marianne Barker Social History Tobacco Use Types [...] on filedocumented in this encounter Care Teams Interactive Media Project Manager Relationship Specialty Start Date End Date Coni Lim MD [address] [place] [address] PCP - General 07/16/10 documented as of this encounter
--- OUTSIDE RECORDS SUMMARY | 2024-08-19 14:54 | XMS_ITS | Encounter Summary ---
[place] [address] Care Team Providers Care Tack Puller Machine Name Role Phone Coni Lim MD Primary Care Provider [phone] Reason for Visit * Reason Comments Chest Pain * Auth/Cert Specialty Diagnoses / Procedures Referred By Contac t Referred To Contact Diagnoses Unstable angina chest pain Referral ID Status Reason Start Date Expiration Date Visits Re quested Visits Authorized [id number] 1 1 Encounter Details Date Type Department Care Team (Late st Contact Info) Description 09/13/2017 9:25 AM EST - 09/13/2017 11:05 AM [place] [id number] Agusto Ball II, MD CARDIAC CATHETERIZATION Social History Tobacco Use [...] Romeo Coe Patient Age: 52 y.o. Language: Chadian Race: White Ethnicity: Not nor Admit date: [...] please contact your inpatient physician through the [facility] Theatrical Scenic Designer . Issues afterhours and on weekends will be handled by the draw press operator on-call. Discharge Diagnoses (Hospital Problems) and [...] restenosis addressed with LAD stent angioplasty at [facility] in January 2014 (ABSORB Stent) [...] patient to come to the hospital today. Port Traffic Manager is Dr. Vyas. ?? Currently, he watches [...] lightheadedness/presyncopal symptoms. He will follow-up with his special systems technician, Dr. Vyas, approximately 1 week as an [...] PF, Split 07/30/2013 ??? Influenza Vaccine (Novel) [id number], Injectable 05/24/2009 ??? Influenza Vaccine w/Preservative, Split [...] Discharge References/Attachments PCI (PERCUTANEOUS CORONARY INTERVENTION): POST-OP (MEXICAN) documented in this encounter Discharge Instructions * [...] MD , PCP [address] / [place] [address] 09/22/2017, 10:30 AM Florian Ling MD, Port Traffic Manager [place], [place] Your Inpatient Doctor(s) at [facility]: Christos Buchanan MD Daniel Storms, MD Sean Li, MD Jeffrey R Wunderlich, MD Your Primary Care Provider: Coni Lim MD [address] / [place] [address] For questions regarding this document or issues relating to this hospitalization on the Medical Service, please contact your inpatient physician through the [facility] Theatrical Scenic Designer . Issues afterhours and on weekends will be handled by the Hospitalist staff on-call. * Attachments The following attachments cannot be sent through Care Everywhere. * PCI (PERCUTANEOUS CORONARY INTERVENTION): POST-OP (MEXICAN) documented in this encounter Medications at Time [...] Pierson MD, PGY-1 Cardiology Service Pager # [phone] * Aida Dietrich MSW - 09/13/2017 2:23 [...] 09/12/2017 5:31 PM EST [facility] via stretcher from ED s/p [...] Buchanan MD PCP: Coni Lim MD PCP#: [phone] CC: Chest Pain Patient Active Problem List [...] restenosis addressed with LAD stent angioplasty at [facility] in January 2014 (ABSORB Stent) [...] patient to come to the hospital today. Port Traffic Manager is Dr. Vyas. Currently, he watches his [...] of Onset ??? Myocardial Infarction Father [address] [place], CABG ??? Diabetes Mother ??? Hypertension Mother [...] son (age 18 months), daughter 11 in [place], [place]. Takes care of his mother who has dementia and he takes her to dialysis. is disabled. Has grown daughter who is 29 years old. 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 Physical Exam: Vitals: Most Recent Vitals: 09/12/17 [...] restenosis addressed with LAD stent angioplasty at [facility] in January 2014 (ABSORB Stent) [...] two days ago. Patient has contacted his special systems technician who advised to presentto the ED. He [...] reviewed the EKG: Sinus Rhythm, rate 82 [place], QRS and QTc within normal limits No [...] Emergency Medicine *This note was dictated with TaKaDu software. Molly Mayer MD Resident 09/12/17 [id number] Associated attestation - Buster Doherty DO - [...] Within the Past 30 Days: None at [facility], nor at outside [...] Environment: Lives with his , Dasia in [place], [place]. Social & Family Supports/Community Resources: , Friends, neighbors Dasia Coe (Spouse) [address] [facility] [phone] (H) [phone] (M) Behavioral Health History: Per pt report, has Anxiety and Depression, (on Cymbalta and Wellbutrin). Substance Use/Abuse: Current every day smoker; 1-5 cigarettes a day. EtOH: None. Illicit Drug Use: Marijuana every day, medical use. Other Pertinent/Service Specific Information: None Health/Prescription Coverage: Primary Insurance: MEDICARE PART A & B Secondary Insurance: MEDICAID [place] Prescription Coverage: Yes, has Silver Script. Preferred Pharmacy: [id number] - [facility], [place] - [address] [facility] ? [address] [facility] [address] ? Not a 24 hour pharmacy; exact hours not known Other: None Primary Care Provider: Coni Lim MD [phone] Patient/Caregiver Goals of Treatment: To return home and to his normal activities. Potential Needs for Transition of Care: Rehab/SNF: Pt has never been a pt in a rehab setting. Home Health: [facility] in the past (after right [...] transition of care planning. TIMBO Barrett Pager: [phone] * Plan of Care - Keisha Mae [...] tele. Cont to monitor. PLAN MOVING FORWARD: laboratory sampler echo INDIVIDUALIZED FALL PREVENTION INTERVENTIONS: Patient-specific fall [...] 1 month of chest pressure, told by special systems technician that if he decided to be seen [...] METABOLIC PANEL Routine 09/14/2017 3:40 AM EST EMPLOYMENT SERVICE SPECIALIST SCAN 09/14/2017 12:00 AM EST POCT GLUCOSE Routine 09/13/2017 7:50 PM EST POCT GLUCOSE Routine 09/13/2017 4:58 PM EST ECHO LMTD W/O CONTRAST W LMTD SPEC DOPP COLOR DOPP Routine 09/13/2017 2:44 PM EST Coronary artery disease, angina presence unspecified, unspecified vessel or lesion type, unspecified whether torres martinez or transplanted heart POCT GLUCOSE Routine 09/13/2017 11:32 AM EST CARDIAC CATHETERIZATION Routine 09/13/19 11:09 AM EST EKG 12-LEAD STAT 09/13/2017 7:49 AM EST Coronary artery disease, angina presence unspecified, unspecified vessel or lesion type, unspecified whether torres martinez or transplanted heart POCT GLUCOSE Routine 09/13/2017 [...] AM EST LDL CHOLESTEROL, DIRECT Routine 09/13/19 18 6:32 AM EST HDL/CHOL PROFILE Routine 09/13/2017 6:32 AM EST HEMOGLOBIN A1C Routine 09/13/2017 6:32 AM EST CARDIAC ENZYMES ([facility]P) STAT 09/13/2017 12:13 AM EST APTT STAT 09/13/2017 12:13 AM EST CARDIAC CATH SCAN 09/13/2017 12: 00 AM EST POCT GLUCOSE Routine 09/12/2017 9:14 PM EST CARDIAC ENZYMES ([facility]) STAT 09/12/2017 6:53 PM EST XR CHEST PA AND LATERAL STAT 09/12/19 18 2:02 PM EST HEMOGRAM STAT 09/12/2017 1:29 PM EST DIFFERENTIAL, AUTOMATED STAT 09/12/19 18 1:29 PM EST GOLD TUBE HOLD STAT 09/12/2017 1:29 PM EST BLUE TUBE HOLD STAT 09/12/2017 1:29 PM EST CARDIAC ENZYMES ([facility]) STAT 09/12/2017 1:29 PM EST APTT STAT [...] POCT Glucose (09/14/2017 7:32 AM EST) Pathologist [facility] Glucose, POC 158 65 - 199 mg/dL [facility] Comment: Supplemental ranges: <140 mg/dL before meals <180 mg/dL all other times of the day Blood specimen (specimen) 09/14/2017 7:32 AM EST 09/14/2017 7:32 AM EST Christos Buchanan MD POINT OF CARE TEST O RDERABLES [facility] [place] [address] * Differential, Automated (09/14/2017 3:40 AM EST) [facility] Neutrophil % 51.2 % [facility] Neutrophil Absolute 4.61 1.70 - 6.10 x10(3)/[facility] Lymph % 34.3 % [facility] Lymphocytes Abs 3.1 0.9 - 3.2 x10(3)/[facility] Monocyte % 8.6 % [facility] Monocyte Abs 0.8 0.3 - 0.9 x10(3)/[facility] Eos % 4.6 % [facility] Eosinophils Abs 0.4 0.0 - 0.4 x10(3)/[facility] Basophil % 0.9 % [facility] Baso Absolute 0.1 0.0 - 0.1 x10(3)/[facility] Immature Gran % 0.40 % [facility] Comment: Immature granulocytes(IG's)percentage and absolute count will include metamyelocytes, myelocytes, and promyelocytes. Blood smears from CBCs yielding IG's will be scanned manually for concordance. If this scan disagrees with the automated IG or if promyelocytes are noted, a manual differential will be performed. Immature Gran Absolute 0.04 0.00 - 0.04 x10(3)/[facility] Blood specimen (specimen) 09/14/2017 3:40 AM EST 09/14/2017 4:08 AM EST Narrative Resulting Agency Comment Spec In Lab Christos Buchanan MD HEMATOLOGY ORDERABLE S [facility] [place] [address] * Hemogram (09/14/2017 3:40 AM EST) White Blood Cell 9.0 4.0 - 9.5 x10(3)/[facility] Red Blood Cell 5.28 4.58 - 5.54 x10(6)/[facility] Hemoglobin 15.0 13.7 - 16.5 gm/dL [facility] Hematocrit 45.8 40.5 - 48.5 % [facility] Mean Cell Volume 86.7 82.9 - 93.1 fL [facility] Mean Cell Hemoglobin 28.4 27.5 - 32.1 pg [facility] Mean Cell Hemoglobin Concentration 32.8 32.0 - 35.7 gm/dL [facility] Platelet 188 145 - 357 x10(3)/[facility] RDW Standard Deviation 43.6 36.0 - 45.0 fL [facility] RDW coefficient of variation 13.7 11.4 - 13.8 % [facility] Mean Platelet Volume 10.4 7.6 - 12.9 fL [facility] NRBC% auto 0.0 % [facility] NRBC Absolute 0.000 0.000 - 0.000 x10(3)/[facility] Blood specimen (specimen) 09/14/2017 3:40 AM EST 09/14/2017 4:08 AM EST Narrative Resulting Agency Comment Spec In Lab Christos Buchanan MD HEMATOLOGY ORDERABLE S Performing Organization Address [facility] de Phone Number [facility] [place] [address] * Prothrombin Time (09/14/2017 3:40 AM EST) Prothrombin Time 13.3 11.8 - 14.0 sec [facility] International Normalization Ratio 1.0 0.9 - 1.1 [facility] Comment: An INR <2.0 indicates [...] ORDERABLE S Performing Organization Address [facility] Co de Phone Number [facility] [place] [address] * Magnesium (09/14/2017 3:40 AM EST) Magnesium 0.83 0.69 - 1.07 mmol/L [facility] Blood specimen (specimen) 09/14/2017 3:40 AM EST 09/14/2017 4:08 AM EST Narrative Resulting Agency Comment Spec In Lab Christos Buchanan MD CHEMISTRY ORDERABLES Performing Organization Address City/State/[facility] Co de Phone Number [facility] [place] [address] * Basic Metabolic Panel (non-fasting) (09/14/2017 3:40 AM EST) Glucose 108 65 - 199 mg/dL [facility] Comment:Diabetes: >=200 mg/d L plus symptoms Blood Urea Nitrogen 11 10 - 20 mg/dL [facility] Creatinine 1.05 0.80 - 1.50 mg/dL [facility] Sodium 143 135 - 145 mmol/L [facility] [...] [facility] Anion Gap 15 5 - 15 mmol/L [facility] Calcium 9.2 8.5 - 10.5 mg/dL [facility] Est Glomerular Filtration Rate >60 >=60 [facility] Comment: The reported eGFR should be multiplied by 1.2 for patients. The MDRD is not an appropriate measure of renal function for patients with body mass extremes or in patients with acute kidney failure. http://Sprout Route/DHnkdep http://Sprout Route/DHMCnkf Blood specimen (specimen) 09/14/2017 3:40 AM EST 09/14/2017 4:08 AM EST Narrative Resulting Agency Comment Spec In Lab Christos Buchanan MD CHEMISTRY ORDERABLES Performing Organization Address [facility] de Phone Number [facility] [place] [address] * SCAN DOC: EMPLOYMENT SERVICE SPECIALIST (09/14/2017 12:00 AM EST) Anatomical Region Laterality Modality Other Narrative 09/14/2017 12:00 AM EST Ordered by an unspecified provider. Scanning Provider MEDIA MGR SCAN EXT O RDR/RSLT * POCT Glucose (09/13/2017 7:50 PM EST) Glucose, POC 113 65 - 199 mg/dL [facility] Comment: Supplemental ranges: <140 mg/dL before meals <180 mg/dL all other times of the day Blood specimen (specimen) 09/13/2017 7:50 PM EST 09/13/2017 7:50 PM EST Christos Buchanan MD POINT OF CARE TEST O RDERABLES Performing Organization Address [facility] Phone Number [facility] [place] [address] * POCT Glucose (09/13/2017 4:58 PM EST) Glucose, POC 138 65 - 199 mg/dL [facility] Comment: Supplemental ranges: <140 mg/dL before meals <180 mg/dL all other times of the day Blood specimen (specimen) 09/13/2017 4:58 PM EST 09/13/2017 4:58 PM EST Christos Buchanan MD POINT OF CARE TEST O RDERABLES Performing Organization Address [facility] Co de Phone Number [facility] [place] [address] * ECHO LMTD W/O CONTRAST W LMTD SPEC DOPP COLOR DOPP (09/13/2017 2:44 PM EST) EF 65 HEARTLAB SYSTEM Anatomical Region Laterality Modality Other 09/13/2017 Narrative 09/13/2017 3:16 PM EST Procedure: ?Transthoracic Echocardiogram Patient: ?LAQUITA Pop ? (Age): 1965(52y) Med Rec#: ? [id number] ?Sex: ?M ? Site Loc: ? [facility] ?Ht / Wt: ??180.3(cm)/101.6 Pt. Loc: ?Adult Floor ? BSA: ?2.21 Study Date: ?? 09/13/2017 ?Pt. Type: Outpatient Tape: ? 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 MV deceleration lpeg101.5 ?msec ? MV A-wave Vmax ?0.5 ?m/sec [...] ? Mid-Inferior ?Normal ? Mid-Inferoseptal ?Normal ? [place]-Septal ? Normal ? [place]-Anterior ? Normal ? [place]-Lateral ?Normal ? [place]-Inferior ? Normal ? [place]-Tip ?Normal ? This report has been electronically signed by: Christos Buchanan M.D. ? 09/13/2017 15:16:25 Images reviewed and interpretation verified [facility] Cardiac Ultrasound Laboratory Procedure Note Christos Buchanan MD - 09/13/2017 Procedure: Transthoracic Echocardiogram Patient: LAQUITA HARRIS(Age): 1965(52y) Med Rec#: [id number] Sex: M Site Loc: [facility] Ht / Wt: 180.3(cm)/101.6 Pt. Loc: Adult Floor BSA: 2.21 Study Date: 09/13/2017 Pt. 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 09/13/2017 15:16:25 Images reviewed and interpretation verified [facility] Cardiac Ultrasound Laboratory Christos Buchanan MD ECHO ORDERABLES * POCT Glucose (09/13/2017 11:32 AM EST) Glucose, POC 104 65 - 199 mg/dL [facility] Comment: Supplemental ranges: <140 mg/dL before meals <180 mg/dL all other times of the day Blood specimen (specimen) 09/13/2017 11:32 AM EST 09/13/2017 11:32 AM EST Christos Buchanan MD POINT OF CARE TEST O RDERABLES Performing Organization Address [facility]/State/[facility] Co de Phone Number [facility] [place] [address] * CARDIAC CATHETERIZATION (09/13/2017 11:09 AM EST) Anatomical Region Laterality Modality Other Narrative 09/13/2017 11:33 AM EST ?[facility] ? Cardiac Catheterization/Intervention Report ? Patient Name: Romeo Coe A. ? Procedure Date: 09/13/2017 ? A #: [id number] ? Primary Physician: Alliance, Agusto W ? Case #: [id number] ? File Name: [id number] ? Catheterization Order Number: [id number] ? [facility] ?[facility] ? Final Report [place], [place] ? Patient Name: ? Romeo A. Coe ? ID#: ?[id number] ? : ?1965 ? Procedure Date: ? [...] presented with: unstable angina (w/i 60 days). [place] ?Cardiovascular Society angina class was IV. This [...] Ball II, MD - 09/14/2017 [facility] Cardiac Catheterization/Intervention Report Patient Name: Romeo Coe Procedure Date: 09/13/2017 A #: [id number] Primary Physician: Agusto Ball Case #: [id number] File Name: [id number] Catheterization Order Number: [id number] [facility] FinalReport [place], [place] Patient Name: Romeo Coe ID#:[id number] :1965 Procedure Date: September 13, 2017 Case [...] presented with: unstable angina (w/i 60 days). [place] Cardiovascular Society angina class was IV. This [...] (Bezet) 416 ms MUSE SYSTEM Calculated P Lando 5 degrees MUSE SYSTEM Calculated R Lando 23 degrees MUSE SYSTEM Calculated T Lando 28 degrees MUSE SYSTEM INTERPRETATION Normal sinus rhythm Normal ECG When compared with ECG of 12-SEP-2017 12:19, No significant change was found Confirmed by MD Segundo, Panda Leyva ([id number]) on 09/14/2017 9:09:15 AM MUSE SYSTEM 09/13/2017 7:49 AM EST 09/14/2017 9:09 AM EST Christos Buchanan MD ECG ORDERABLES MUSE SYSTEM * POCT Glucose (09/13/2017 7:24 AM EST) Glucose, POC 152 65 - 199 mg/dL [facility] Comment: Supplemental ranges: <140 mg/dL before meals <180 mg/dL all other times of the day Blood specimen (specimen) 09/13/2017 7:24 AM EST 09/13/2017 7:24 AM EST Christos Buchanan MD POINT OF CARE TEST O RDERABLES [facility] [place] [address] * (ABNORMAL) BMP w/fasting Glucose (09/13/2017 6:32 AM EST) Glucose Fasting 157(H) 65 - 99 mg/dL [facility] [...] of Diabetes Mellitus, Position Statement from the [place] [employer]. ??Diabetes Care, Volume 33, Supplement 1, Aug 2009 Blood Urea Nitrogen 11 10 - 20 mg/dL [facility] Creatinine 0.99 0.80 - 1.50 mg/dL [facility] Sodium 142 135 - 145 mmol/L [facility] Potassium 3.7 3.5 - 5.0 mmol/L [facility] Comment: Please note: ??Patients with WBC >100,000 may have falsely elevated Potassium levels. ??For accurate Potassium quantification in these patients send serum separator tube (gold top) for subsequent determinations. ??Contact the Clinical Chemistry Laboratory if there are any questions. Chloride 106 98 - 107 mmol/L [facility] Carbon Dioxide 21(L) 22 - 31 mmol/L [facility] Anion Gap 15 5 - 15 mmol/L [facility] Calcium 9.4 8.5 - 10.5 mg/dL [facility] Est Glomerular Filtration Rate >60 >=60 [facility] Comment: The reported eGFR should be multiplied by 1.2 for patients. The MDRD is not an appropriate measure of renal function for patients with body mass extremes or in patients with acute kidney failure. http://Routezilla.EZ4U/DHnkdep http://Routezilla.EZ4U/DHnkf Blood specimen (specimen) 09/13/2017 6:32 AM EST 09/13/2017 6:41 AM EST Narrative Resulting Agency Comment Spec In Lab Christos Buchanan MD CHEMISTRY ORDERABLES Performing Organization Address [facility] de Phone Number [facility] [place] [address] * (ABNORMAL) APTT (09/13/2017 6:32 AM EST) Partial Thromboplastin Time 113(H) 25 - 35 sec [facility] Comment: The recommended therapeutic range for full dose, unfractionated heparin at [facility] is 80 ? [...] ORDERABLE S Performing Organization Address [facility] de Phone Number [facility] [place] [address] * Differential, Automated (09/13/2017 6:32 AM EST) Neutrophil % 64.9 % [facility] Neutrophil Absolute 5.94 1.70 - 6.10 x10(3)/[facility] Lymph % 24.7 % [facility] Lymphocytes Abs 2.3 0.9 - 3.2 x10(3)/[facility] Monocyte % 5.3 % [facility] Monocyte Abs 0.5 0.3 - 0.9 x10(3)/[facility] Eos % 4.0 % [facility] Eosinophils Abs 0.4 0.0 - 0.4 x10(3)/[facility] Basophil % 0.7 % [facility] Baso Absolute 0.1 0.0 - 0.1 x10(3)/[facility] Immature Gran % 0.40 % [facility] Comment: Immature granulocytes(IG's)percentage and absolute count will include metamyelocytes, myelocytes, and promyelocytes. Blood smears from CBCs yielding IG's will be scanned manually for concordance. If this scan disagrees with the automated IG or if promyelocytes are noted, a manual differential will be performed. Immature Gran Absolute 0.04 0.00 - 0.04 x10(3)/[facility] Blood specimen (specimen) 09/13/2017 6:32 AM EST 09/13/2017 6:41 AM EST Narrative Resulting Agency Comment Spec In Lab Christos Buchanan MD HEMATOLOGY ORDERABLE S Performing Organization Address City/State/[facility] Co de Phone Number [facility] [place] [address] * Hemogram (09/13/2017 6:32 AM EST) White Blood Cell 9.2 4.0 - 9.5 x10(3)/[facility] Red Blood Cell 5.29 4.58 - 5.54 x10(6)/[facility] Hemoglobin 15.4 13.7 - 16.5 gm/dL [facility] Hematocrit 44.9 40.5 - 48.5 % [facility] Mean Cell Volume 84.9 82.9 - 93.1 fL [facility] Mean Cell Hemoglobin 29.1 27.5 - 32.1 pg [facility] Mean Cell Hemoglobin Concentration 34.3 32.0 - 35.7 gm/dL [facility] Platelet 186 145 - 357 x10(3)/[facility] RDW Standard Deviation 42.9 36.0 - 45.0 [facility] RDW coefficient of variation 13.8 11.4 - 13.8 % [facility] Mean Platelet Volume 10.3 7.6 - 12.9 [facility] NRBC% auto 0.0 % [facility] NRBC Absolute 0.000 0.000 - 0.000 x10(3)/[facility] Blood specimen (specimen) 09/13/2017 6:32 AM EST 09/13/2017 6:41 AM EST Narrative Resulting Agency Comment Spec In Lab Christos Buchanan MD HEMATOLOGY ORDERABLE S Performing Organization Address [facility] [facility] [place] Co de Phone Number [facility] [place] [address] * Blood culture (09/13/2017 6:32 AM EST) Blood Culture No growth at 5 days. [facility] Blood specimen (specimen) 09/13/2017 6:32 AM EST 09/13/2017 7:17 AM EST Comment:L FOREARM Narrative Resulting Agency Comment Spec In Lab Chritsos Buchanan MD MICROBIOLOGY - BLOOD ORDERABLES Performing Organization Address [facility] [place]/[facility] Phone Number [facility] [place] [address] * Prothrombin Time (09/13/2017 6:32 AM EST) Prothrombin Time 13.8 11.8 - 14.0 sec [facility] International Normalization Ratio 1.1 0.9 - 1.1 [facility] Comment: An INR <2.0 indicates [...] ORDERABLE S Performing Organization Address [facility] [place]/[facility] Co de Phone Number [facility] [place] [address] * Magnesium (09/13/2017 6:32 AM EST) Magnesium 0.84 0.69 - 1.07 mmol/L [facility] Blood specimen (specimen) 09/13/2017 6:32 AM EST 09/13/2017 6:41 AM EST Narrative Resulting Agency Comment Spec In Lab Christos uBchanan MD CHEMISTRY ORDERABLES Performing Organization Address [facility] de Phone Number [facility] [place] [address] * Triglyceride (09/13/2017 6:32 AM EST) Triglyceride 153 <=199 mg/dL [facility] Blood specimen (specimen) 09/13/2017 6:32 AM EST 09/13/2017 6:41 AM EST Narrative Resulting Agency Comment Spec In Lab Christos Buchanan MD CHEMISTRY ORDERABLES Performing Organization Address [facility] de Phone Number [facility] [place] [address] * HDL/Cholesterol Profile (09/13/2017 6:32 AM EST) Cholesterol, Total 162 <=239 mg/dL [facility] HDL Cholesterol 44 >=40 mg/dL [facility] Cholesterol/HDL Ratio 3.7 ratio [facility] Chol/HDL Interpretation See Note [facility] Comment: Lipid management should be guided by a patient? s ASCVD risk, goals and preferences. ACC/AHA Guidelines recommend high intensity statin if clinical ASCVD or LDL greater than or equal to 190 mg/dL. http://OrganizedWisdomurl.com/XMH-PEY-Glxiawfpd Measure LDL if Total Cholesterol minus HDL Cholesterol is greater than 220 mg/dL. Adults aged 40-75 with LDL 70-189 mg/dL should have their 10 year ASCVD risk estimated with the ACC/AHA ASCVD risk breaker mechanic http://tools.acc.org/XTPFO-Rspu-Zyecqhykx/ Statin should be discussed if risk greater [...] Buchanan MD CHEMISTRY ORDERABLES Performing Organization Address [facility] [place]/[facility] Co de Phone Number [facility] [place] [address] * LDL Cholesterol, Direct (09/13/2017 6:32 AM EST) LDL Cholesterol, Direct 102 <=190 mg/dL [facility] Blood specimen (specimen) 09/13/2017 6:32 AM EST 09/13/2017 6:41 AM EST Narrative Resulting Agency Comment Spec In Lab Christos Buchanan MD CHEMISTRY ORDERABLES Performing Organization Address [facility] [place]/[facility] Co de Phone Number [facility] [place] [address] * (ABNORMAL) Hemoglobin A1c (09/13/2017 6:32 AM EST) Hemoglobin A1c 6.4(H) 4.3 - 5.6 % [facility] Mellitus, Diabetes Care 2013; 36: Suppl. 1, I93-91 Estimated Average Glucose 137 mg/dL [facility] Comment: [...] into estimated average glucose values. ??Diabetes Care 2008:31(8):9153-0599. Blood specimen (specimen) 09/13/2017 6:32 AM EST 09/13/2017 6:41 AM EST Narrative Resulting Agency Comment Spec In Lab Christos Buchanan MD CHEMISTRY ORDERABLES [facility] [place] [address] * pro-Brain Natriuretic Peptide (09/13/2017 6:32 AM EST) NT-proBNP 15 <=125 pg/mL [facility] Blood specimen (specimen) 09/13/2017 6:32 AM EST 09/13/2017 6:41 AM EST Narrative Resulting Agency Comment Spec In Lab Christos Buchanan MD CHEMISTRY ORDERABLES Performing Organization Address [facility] [place]/[facility] Co de Phone Number [facility] [place] [address] * (ABNORMAL) APTT (09/13/2017 12:13 AM EST) Partial Thromboplastin Time 50(H) 25 - 35 sec [facility] Comment: The recommended therapeutic range for full dose, unfractionated heparin at [facility] is 80 ? [...] ORDERABLE S Performing Organization Address [facility] [place]/[facility] Phone Number [facility] [place] [address] * Cardiac Enzymes (LEB/CGP) (09/13/2017 12:13 AM EST) Pathologist [facility] Troponin-T <0.01 0.00 - 0.00 ng/mL [facility] Comment: The 99th percentile for Troponin T is less than 0.01 ng/mL, any detectable cTnT concentration using this assay should be considered elevated. According to the third universal definition of myocardial infarction the following criteria with a clinical presentation consistent with acute myocardial ischemia meets the diagnosis for a myocardial infarction ([place]). Detection of a rise and/or fall of cTnT, with at least one value greater than the 99th percentile (> or = 0.01) and with at least one of the following ?? Symptoms of ischemia ?? New or presumed new significant NZ-yaaiuew-S wave (ST-T) changes or new left bundle [...] additional sample may be indicated. Reference: Third [place] Definition of Myocardial Infarction. Journal of the [place] [employer] 2012;60:1581-98 Creatine Kinase 55 0 - 200 unit/L [facility] Blood specimen (specimen) 09/13/2017 12:13 AM EST 09/13/2017 12:42 AM EST Narrative Resulting Agency Comment Spec In Lab Christos Buchanan MD CHEMISTRY ORDERABLES Performing Organization Address [facility] [place]/[facility] Co de Phone Number [facility] [place] [address] * SCAN DOC: CARDIAC CATH (09/13/2017 12:00 AM EST) Anatomical Region Laterality Modality Cardiac Other Narrative 09/13/2017 12:00 AM EST Ordered by an unspecified provider. Scanning Provider MEDIA MGR SCAN EXT O RDR/RSLT * POCT Glucose (09/12/2017 9:14 PM EST) [facility] Glucose, POC 102 65 - 199 mg/dL [facility] Comment: Supplemental ranges: <140 mg/dL before meals <180 mg/dL all other times of the day Blood specimen (specimen) 09/12/2017 9:14 PM EST 09/12/2017 9:14 PM EST Christos Buchanan MD POINT OF CARE TEST O RDERABLES Performing Organization Address [facility] [place]/[facility] Co de Phone Number [facility] [place] [address] * Cardiac Enzymes (LEB/CGP) (09/12/2017 6:53 PM EST) [facility] Troponin-T <0.01 0.00 - 0.00 ng/mL [facility] Comment: The 99th percentile for Troponin T is less than 0.01 ng/mL, any detectable cTnT concentration using this assay should be considered elevated. According to the third universal definition of myocardial infarction the following criteria with a clinical presentation consistent with acute myocardial ischemia meets the diagnosis for a myocardial infarction ([place]). Detection of a rise and/or fall of cTnT, with at least one value greater than the 99th percentile (> or = 0.01) and with at least one of the following ?? Symptoms of ischemia ?? New or presumed new significant UP-sgxkymq-K wave (ST-T) changes or new left bundle [...] additional sample may be indicated. Reference: Third [place] Definition of Myocardial Infarction. Journal of the [place] [employer] 2012;60:1581-98 Creatine Kinase 57 0 - 200 unit/L [facility] Blood specimen (specimen) 09/12/2017 6:53 PM EST 09/12/2017 7:02 PM EST Narrative Resulting Agency Comment Spec In Lab Christos Buchanan MD CHEMISTRY ORDERABLES Performing Organization Address City/State/[facility] Co de Phone Number [facility] [place] [address] * XR Chest PA & Lateral (Generic) [...] No acute cardiopulmonary disease. Buster Doherty DO IMG DX ORDERABLES * Prothrombin Time (09/12/2017 1:29 PM EST) Prothrombin Time 13.7 11.8 - 14.0 sec [facility] International Normalization Ratio 1.1 0.9 - 1.1 [facility] Comment: An INR <2.0 indicates [...] Lab Alejandro Blair MD HEMATOLOGY ORDERAB LES [facility] [place] [address] * APTT (09/12/2017 1:29 PM EST) Partial Thromboplastin Time 28 25 - 35 sec [facility] Comment: The recommended therapeutic range for full dose, unfractionated heparin at [facility] is 80 ? [...] MD HEMATOLOGY ORDERAB LES Performing Organization Address [facility] [place]/[facility] Co de Phone Number [facility] [place] [address] * pro-Brain Natriuretic Peptide (09/12/2017 1:29 PM EST) NT-proBNP 20 <=125 pg/mL [facility] Blood specimen (specimen) Venous Draw / Unknown 09/12/2017 1:29 PM EST 09/12/2017 1:35 PM EST Narrative Resulting Agency Comment Spec In Lab Alejandro Blair MD CHEMISTRY ORDERABL ES Performing Organization Address [facility] Co de Phone Number [facility] [place] [address] * Gold Tube HOLD (09/12/2017 1:29 PM EST) Gold Hold Sample in lab. [facility] Blood specimen (specimen) Venous Draw / Unknown 09/12/2017 1:29 PM EST 09/12/2017 1:34 PM EST Alejandro Blair MD CHEMISTRY ORDERABL ES Performing Organization Address [facility] Co de Phone Number [facility] [place] [address] * Blue Tube HOLD (09/12/2017 1:29 PM EST) Blue Hold Sample in lab. [facility] Blood specimen (specimen) Venous Draw / Unknown 09/12/2017 1:29 PM EST 09/12/2017 1:34 PM EST Alejandro Blair MD HEMATOLOGY ORDERAB LES Performing Organization Address City/[facility]/ZIP Co de Phone Number [facility] [place] [address] * Differential, Automated (09/12/2017 1:29 PM EST) Neutrophil % 57.0 % [facility] Neutrophil Absolute 5.07 1.70 - 6.10 x10(3)/[facility] Lymph % 29.7 % [facility] Lymphocytes Abs 2.6 0.9 - 3.2 x10(3)/[facility] Monocyte % 7.8 % [facility] Monocyte Abs 0.7 0.3 - 0.9 x10(3)/[facility] Eos % 4.2 % [facility] Eosinophils Abs 0.4 0.0 - 0.4 x10(3)/[facility] Basophil % 0.8 % [facility] Baso Absolute 0.1 0.0 - 0.1 x10(3)/[facility] Immature Gran % 0.50 % [facility] Comment: Immature granulocytes(IG's)percentage and absolute count will include metamyelocytes, myelocytes, and promyelocytes. Blood smears from CBCs yielding IG's will be scanned manually for concordance. If this scan disagrees with the automated IG or if promyelocytes are noted, a manual differential will be performed. Immature Gran Absolute 0.04 0.00 - 0.04 x10(3)/[facility] Blood specimen (specimen) 09/12/2017 1:29 PM EST 09/12/2017 1:34 PM EST Narrative Resulting Agency Comment Spec In Lab Alejandro Blair MD HEMATOLOGY ORDERAB LES Performing Organization Address City/[facility]/ZIP Co de Phone Number [facility] [place] [address] * Hemogram (09/12/2017 1:29 PM EST) Pathologist [facility] White Blood Cell 8.9 4.0 - 9.5 x10(3)/[facility] Red Blood Cell 5.07 4.58 - 5.54 x10(6)/[facility] Hemoglobin 14.8 13.7 - 16.5 gm/dL [facility] Hematocrit 43.3 40.5 - 48.5 % [facility] Mean Cell Volume 85.4 82.9 - 93.1 [facility] Mean Cell Hemoglobin 29.2 27.5 - 32.1 pg [facility] Mean Cell Hemoglobin Concentration 34.2 32.0 - 35.7 gm/dL [facility] Platelet 208 145 - 357 x10(3)/[facility] RDW Standard Deviation 42.5 36.0 - 45.0 [facility] RDW coefficient of variation 13.7 11.4 - 13.8 % [facility] Mean Platelet Volume 10.4 7.6 - 12.9 [facility] NRBC% auto 0.0 % [facility] NRBC Absolute 0.000 0.000 - 0.000 x10(3)/[facility] Blood specimen (specimen) 09/12/2017 1:29 PM EST 09/12/2017 1:34 PM EST Narrative Resulting Agency Comment Spec In Lab Alejandro Blair MD HEMATOLOGY ORDERAB LES [facility] [place] [address] * (ABNORMAL) Basic Metabolic Panel (non-fasting) (09/12/2017 1:29 PM EST) Pathologist [facility] Glucose 113 65 - 199 mg/dL [facility] Comment:Diabetes: >=200 mg/d L plus symptoms Blood Urea Nitrogen 10 10 - 20 mg/dL [facility] Creatinine 0.96 0.80 - 1.50 mg/dL [facility] Sodium 143 135 - 145 mmol/L [facility] Potassium 3.9 3.5 - 5.0 mmol/L [facility] [...] [facility] Anion Gap 17(H) 5 - 15 mmol/L [facility] Calcium 9.2 8.5 - 10.5 mg/dL [facility] Est Glomerular Filtration Rate >60 >=60 [facility] Comment: The reported eGFR should be multiplied by 1.2 for patients. The MDRD is not an appropriate measure of renal function for patients with body mass extremes or in patients with acute kidney failure. http://Sprout Route/DHnkdep http://Sprout Route/DHMCnkf Blood specimen (specimen) 09/12/2017 1:29 PM EST 09/12/2017 1:34 PM EST Narrative Resulting Agency Comment Spec In Lab Alejandro Blair MD CHEMISTRY ORDERABL ES [facility] [place] [address] * Cardiac Enzymes (LEB/CGP) (09/12/2017 1:29 PM EST) Troponin-T <0.01 0.00 - 0.00 ng/mL [facility] Comment: The 99th percentile for Troponin T is less than 0.01 ng/mL, any detectable cTnT concentration using this assay should be considered elevated. According to the third universal definition of myocardial infarction the following criteria with a clinical presentation consistent with acute myocardial ischemia meets the diagnosis for a myocardial infarction ([place]). Detection of a rise and/or fall of cTnT, with at least one value greater than the 99th percentile (> or = 0.01) and with at least one of the following ?? Symptoms of ischemia ?? New or presumed new significant JT-vklbwtn-X wave (ST-T) changes or new left bundle [...] additional sample may be indicated. Reference: Third [place] Definition of Myocardial Infarction. Journal of the [place] [employer] 2012;60:1581-98 Creatine Kinase 65 0 - 200 unit/L [facility] Blood specimen (specimen) 09/12/2017 1:29 PM EST 09/12/2017 1:34 PM EST Narrative Resulting Agency Comment Spec In Lab Alejandro Blair MD CHEMISTRY ORDERABL ES Performing Organization Address [facility] [place]/[facility]/ZIP Co de Phone Number [facility] [place] [id number] * EKG 12 Lead (09/12/2017 12:19 PM EST) Ventricular rate 82 BPM MUSE SYSTEM Atrial Rate 82 BPM MUSE SYSTEM P-R Interval 136 ms MUSE SYSTEM QRS Duration 80 ms MUSE SYSTEM Q-T Interval 358 ms MUSE SYSTEM QTC Calculated (Bezet) 418 ms MUSE SYSTEM Calculated P Lando 13 degrees MUSE SYSTEM Calculated R Lando 33 degrees MUSE SYSTEM Calculated T Lando 34 degrees MUSE SYSTEM INTERPRETATION Normal sinus rhythm Normal ECG When compared with ECG of 25-NOV-2016 07:23, No significant change was found Confirmed by MD Meli, Tigre ([id number]) on 09/12/2017 4:16:03 PM MUSE SYSTEM 09/12/2017 12:1 9 PM EST 09/12/2017 4:16 PM EST Buster Doherty DO ECG ORDERABLES Performing Organization Address [facility] [place]/[facility]/ZIP Co de Phone Number MUSE SYSTEM * SCAN DOC: CARDIAC CATH [...] on 09/13/17 at 0730, Until Discontinued, Routine Given [...] PROTOCOL, Starting on 09/12/17 at 1512, Until [place] 09/13/17 at 1015, Per Protocol, START ADJUSTMENT [...] 09/12/17 at 1735, Until Thu09/14/17 at 1312, pain unresponsive to tylenol, Routine [...] 1240, STAT 1448 (Given - Provider: Katia Chan, VERO) aspirin chewable tablet 81 mg 81 mg, Oral, DAILY, First dose on 09/13/17 at 0915, Until Discontinued, Routine 0923 (Given - Provider: Rupal Munguia RN)1002 ([facility] Hold - Provider: Admin Adt - Reason: Transfer to a Procedural area)1134 ([facility] Unhold - Provider: Admin Adt) 0830 (Given - Provider: Rupal Munguia RN) buPROPion (WELLBUTRIN SR or ZYBAN) SR tablet 150 mg 150 mg, Oral, 2 TIMES DAILY, First dose on 09/12/17 at 2100, Until Discontinued, DO NOT CRUSH OR OPEN, Routine 2030 (Given - Provider: Keisha Mae RN) 0850 (Given - Provider: Rupal Munguia RN)1002 ([facility] Hold - Provider: Admin Adt - Reason: Transfer to a Procedural area)1134 ([facility] Unhold - Provider: Admin Adt)2019 (Given - Provider: Keisha Mae RN) 0830 (Given - Provider: Rupal Munguia RN) clopidogrel (PLAVIX) tablet 75 mg 75 mg, Oral, DAILY, First dose on 09/13/17 at 0900, Until Discontinued, Routine 0850 (Given - Provider: Rupal Munguia RN)1002 ([facility] Hold - Provider: Admin Adt - Reason: Transfer to a Procedural area)1134 ([facility] Unhold - Provider: Admin Adt) 0830 (Given - Provider: Rupal Munguia RN) DULoxetine (CYMBALTA) capsule 60 mg 60 mg, Oral, 2 TIMES DAILY, First dose on 09/12/17 at 2100, Until Discontinued, Routine 2030 (Given - Provider: Keisha Mae RN) 0851 (Given - Provider: Rupal Munguia RN)1002 ([facility] Hold - Provider: Admin Adt - Reason: Transfer to a Procedural area)1134 ([facility] Unhold - Provider: Admin Adt)2019 (Given - Provider: Keisha Mae RN) 0830 (Given - Provider: Rupal Munguia RN) gabapentin (NEURONTIN) capsule 600 mg 600 mg, Oral, 2 TIMES DAILY BEFORE BREAKFAST AND LUNCH, First dose (after last modification) on 09/13/17 at 0730, Until Discontinued, Routine 0800 (Given - Provider: Rupal Munguia RN)1002 ([facility] Hold - Provider: Admin Adt - Reason: Transfer to a Procedural area)1130 (Automatically Held - Provider: Admin Adt)1134 ([facility] Unhold - Provider: Admin Adt)1323 (Given - Provider: Rupal Munguia RN - Comment: late lunch) 0800 (Given - Provider: Rupal Munguia RN) gabapentin (NEURONTIN) capsule 900 mg 900 mg, Oral, NIGHTLY, First dose on 09/12/17 at 2100, Until Discontinued, Routine 2030 (Given - Provider: Keisha Mae RN) 1002 ([facility] Hold - Provider: Admin Adt - Reason: Transfer to a Procedural area)1134 ([facility] Unhold - Provider: Admin Adt)2019 (Given - [...] - Reason: Transfer to a Procedural area)1134 ([facility] Unhold - Provider: Admin Adt) isosorbide mononitrate [...] 0853 (Given - Provider: Rupal Munguia RN)1002 ([facility] Hold - Provider: Admin Adt - Reason: Transfer to a Procedural area)1134 ([facility] Unhold - Provider: Admin Adt) 0831 (Given - Provider: Rupal Munguia RN) meTOPROLOL tartrate (LOPRESSOR) tablet 50 mg 50 mg, Oral, 2 TIMES DAILY, First dose on 09/12/17 at 2100, Until Discontinued, Routine 2030 (Given - Provider: Keisha Mae RN) 0852 (Given - Provider: Rupal Munguia RN)1002 ([facility] Hold - Provider: Admin Adt - Reason: Transfer to a Procedural area)1134 ([facility] Unhold - Provider: Admin Adt)2020 (Given - [...] Rupal Munguia RN - Reason: Patient/family refused)1002 ([facility] Hold - Provider: Admin Adt - Reason: Transfer to a Procedural area)1134 ([facility] Unhold - Provider: Admin Adt) 0900 (Not Given - Provider: Rupal Munguia RN - Reason: Patient/family refused) nicotine (NICODERM CQ) 14 mg/24 hr patch Patch Removal(Linked Group 1) Transdermal, DAILY, First dose on 09/13/17 at 1615, Until Discontinued, Remove nicotine 14 mg/24 hr patch 1002 (MAR Hold - Provider: Admin Adt [...] - Reason: Transfer to a Procedural area)1134 ([facility] Unhold - Provider: Admin Adt)2099 (Not Given [...] 0852 (Given - Provider: Rupal Munguia RN)1002 ([facility] Hold - Provider: Admin Adt - Reason: Transfer to a Procedural area)1134 ([facility] Unhold - Provider: Admin Adt)2019 (Given - Provider: Keisha Mae RN) 0830 (Given - Provider: Rupal Munguia RN) pramipexole (MIRAPEX) tablet 0.5 mg 0.5 mg, Oral, NIGHTLY, First dose on 09/12/17 at 2100, Until Discontinued, Routine 2030 (Given - Provider: Keisha Mae RN) 1002 (OCT Hold - Provider: Admin Adt - Reason: Transfer to a Procedural area)1134 ([facility] Unhold - Provider: Admin Adt)2019 (Given - Provider: Keisha Mae RN) rosuvastatin (CRESTOR) tablet 20 mg 20 mg, Oral, EVERY EVENING, First dose on 09/12/17 at 1800, Until Discontinued, Routine 1818 (Given - Provider: Mariela So, VERO) 1002 (OCT Hold - Provider: Admin Adt - Reason: Transfer to a Procedural area)1134 (OCT Unhold - Provider: Admin Adt)1639 (Given - [...] (Given - Provider: Keisha Mae, VERO) 1002 (OCT Hold - Provider: Admin Adt [...] - Reason: Transfer to a Procedural area)1134 ([facility] Unhold - Provider: Admin Adt) cyclobenzaprine (FLEXERIL) tablet 10 mg 10 mg, Oral, 3 TIMES DAILY PRN, Starting on 09/12/17 at 1735, Until 09/14/17 at 1312, Muscle spasms, Routine 1002 (OCT Hold - Provider: Admin Adt - Reason: Transfer to a Procedural area)1134 ([facility] Unhold - Provider: Admin Adt) fentaNYL 50 [...] Keisha Mae RN - Comment: ptt 50)1002 ([facility] Hold - Provider: Admin Adt - Reason: Transfer to a Procedural area)1015 ([facility] Unhold - Provider: Admin Adt) heparin (porcine) injection (CANCELED) ONCE PRN, Starting on 09/13/17 at 1037, Until 1/21/18 at 1037, Cath (Intra-Procedure), Routine 1037 (Given [...] RN)0809 (Given - Provider: Rupal Munguia RN)1002 ([facility] Hold - Provider: Admin Adt - Reason: Transfer to a Procedural area)1134 ([facility] Unhold - Provider: Admin Adt) oxyCODONE (ROXICODONE) immediate release tablet 10 mg 10 mg, Oral, 4 TIMES DAILY PRN, Starting on 09/12/17 at 1735, Until 09/14/17 at 1312, pain unresponsive to tylenol, Routine 1002 ([facility] Hold - Provider: Admin Adt - Reason: Transfer to a Procedural area)1134 ([facility] Unhold - Provider: Admin Adt)2024 (Given - [...] provided on this medication record., Routine 1002 ([facility] Hold - Provider: Admin Adt - Reason: Transfer to a Procedural area)1134 ([facility] Unhold - Provider: Admin Adt) sodium chloride [...] UA) documented in this encounter Care Teams Tack Puller Machine Relationship Specialty Start Date End Date Coni Lim MD [address] [place] [address] PCP - General 07/16/10 documented as of this encounter
--- OUTSIDE RECORDS SUMMARY | 2024-08-19 14:54 | XMS_ITS | Encounter Summary ---
Author Organization [facility] [place] [address] Care Team Providers Care Clinical Orthoptist Name Role Phone Coni Lim MD Primary Care Provider Encounter Details Date Type Department Care Team (Late st Contact Info) Description 11/26/2016 External Results [place] [address] Dwayne Gonzalez MD [address] [place] [id number] Social History Tobacco Use Types Packs/Day Years [...] filedocumented in this encounter Care Teams Clinical Orthoptist Relationship Specialty Start Date End Date Coni Lim MD [address] [place], [place] [address] PCP - General 07/16/10 documented as of this encounter
--- OUTSIDE RECORDS SUMMARY | 2024-08-19 14:54 | XMS_ITS | Encounter Summary ---
Author Organization [facility] Address [facility] [place] [address] Care Team Providers Care Aquatic Habitat Biologist Name Role Phone Coni Lim MD Primary Care Provider [phone] Encounter Details Date Type Department Care Team (Late st Contact Info) Description 11/26/2016 Telephone Cardiology at [address] [phone] Roque Paulson MD [facility] [place] [address] Social History Tobacco Use Types Packs/Day Years [...] PM Referring Provider: Dr. Kimball Patient Location: [facility] per OSH: 51 y/o old with [...] on filedocumented in this encounter Care Teams Aquatic Habitat Biologist Relationship Specialty Start Date End Date Coni Lim MD [address] [place] [address] PCP - General 07/16/10 documented as of this encounter
--- OUTSIDE RECORDS SUMMARY | 2024-08-19 14:55 | XMS_ITS | Encounter Summary ---
Author Organization [facility] Address [facility] [place] [address] Care Team Providers Care Pulp Grinder And Blender Name Role Phone Coni Lim MD Primary Care Provider [phone] Reason for Visit * Reason Onset Date Comments Medication Refill 08/10/2013 Encounter Details Date Type Department Care Team (Late st Contact Info) Description 08/10/2013 Refill Cardiology at [address] [phone] Turner Tan MD [facility] [place] [address] Medication Refill Social History Tobacco Use Types [...] on filedocumented in this encounter Care Teams Pulp Grinder And Blender Relationship Specialty Start Date End Date Coni iLm MD [address] [place] [address] PCP - General 07/16/10 documented as of this encounter
--- OUTSIDE RECORDS SUMMARY | 2024-08-19 14:55 | XMS_ITS | Encounter Summary ---
Author Organization [facility] [place] [address] Care Team Providers Care Clinical Faculty Name Role Phone Coni Lim MD Primary Care Provider [phone] Encounter Details Date Type Department Care Team (Late st Contact Info) Description 07/26/2013 Telephone Cardiology at [address] [phone] Shanell Julian CMA Social History Tobacco Use [...] filedocumented in this encounter Care Teams Clinical Faculty Relationship Specialty Start Date End Date Coni Lim MD [address] [place] [address] PCP - General 07/16/10 documented as of this encounter
--- OUTSIDE RECORDS SUMMARY | 2024-08-19 14:55 | XMS_ITS | Encounter Summary ---
Author Organization [facility] [place] [address] Care Team Providers Care Fast Food Attendant Name Role Phone Coni Lim MD Primary Care Provider [phone] Encounter Details Date Type Department Care Team (Late st Contact Info) Description 07/26/2013 Orders Only Cardiology at [address] [address] Taylor Dickinson PA ASCVD (arteriosclerotic cardiovascular disease) (Primary Dx) Social [...] disease documented in this encounter Care Teams Fast Food Attendant Relationship Specialty Start Date End Date Coni Lim MD [address] [place] [address] PCP - General 07/16/10 documented as of this encounter
--- OUTSIDE RECORDS SUMMARY | 2024-08-19 14:55 | XMS_ITS | Encounter Summary ---
Author Organization [facility] Address [facility] [place] [address] Care Team Providers Care Search Engine Marketing Strategist Name Role Phone Coni Lim MD Primary Care Provider [phone] Encounter Details Date Type Department Care Team (Late st Contact Info) Description 02/14/2014 Telephone Cardiology [facility] [place] [phone] Eros Ballard MD [facility] [place] [address] Social History Tobacco Use Types Packs/Day Years [...] started on heparin drip and transferred to [facility]. documented in this encounter Plan of Treatment Not on file documented as of this encounter Visit Diagnoses Not on filedocumented in this encounter Care Teams Search Engine Marketing Strategist Relationship Specialty Start Date End Date Coni Lim MD [address] [place] [address] PCP - General 07/16/10 documented as of this encounter
--- OUTSIDE RECORDS SUMMARY | 2024-08-19 14:55 | XMS_ITS | Encounter Summary ---
Author Organization [facility] [place] [address] Care Team Providers Care Molding Room Supervisor Name Role Phone Coni Lim MD Primary Care Provider [phone] Encounter Details Date Type Department Care Team (Late st Contact Info) Description 08/02/2015 Telephone Cardiology at [address] [phone] Destin Patel, RN Social History Tobacco Use [...] on filedocumented in this encounter Care Teams Molding Room Supervisor Relationship Specialty Start Date End Date Coni Lim MD [address] [place] [address] PCP - General 07/16/10 documented as of this encounter
--- OUTSIDE RECORDS SUMMARY | 2024-08-19 14:55 | XMS_ITS | Encounter Summary ---
Author Organization [facility] [place] [address] Care Team Providers Care Repairer Maintenance Building Name Role Phone Coni Lim MD Primary Care Provider [phone] Encounter Details Date Type Department Care Team (Late st Contact Info) Description 07/26/2015 Telephone Cardiology at [address] [phone] Destin Patel, RN Social History Tobacco Use [...] Kim Horvath is aware as the blinded technical aide. I will follow up with him should it be necessary. documented in this encounter Plan of Treatment Not on file documented as of this encounter Visit Diagnoses Not on filedocumented in this encounter Care Teams Repairer Maintenance Building Relationship Specialty Start Date End Date Coni Lim MD [address] [place] [address] PCP - General 07/16/10 documented as of this encounter
--- OUTSIDE RECORDS SUMMARY | 2024-08-19 14:55 | XMS_ITS | Encounter Summary ---
Author Organization [facility] Address [facility] [place] [address] Care Team Providers Care Wool Supplier Name Role Phone Coni Lim MD Primary Care Provider [phone] Encounter Details Date Type Department Care Team (Latest Contact Info) Description 07/29/2013 11:02 AM EST - 07/29/2013 11:59 PM [facility] Hospital Encounter ZLEB 4A [facility] [place] [address] Edy Trimble MD [facility] [place] [address] Discharge Disposition: Home Social History Tobacco Use [...] CK-MB Study (07/29/2013 6:05 PM EST) Pathologist [facility] Creatine Kinase 57 0 - 200 unit/L [facility] CK-MB 1.4 0.0 - 5.0 mcg/L [facility] CKMB Index 2.5 0.0 - 5.0 mcg/u [facility]ERNER MILLENNIUM Blood specimen (specimen) 07/29/2013 6:05 PM EST 07/29/2013 6:33 PM EST Narrative Resulting Agency Comment Spec In Lab Edy Damon MD CHEMISTRY ORDERABLES Performing Organization Address City/[facility] Co de Phone Number CERANNABEL JENSENENNIUM [...] Damon MD CHEMISTRY ORDERABLES Performing Organization Address City/[facility] Co de Phone Number [facility]ANNA[facility] CLEMENSIUM documented in this encounter Visit Diagnoses Not on filedocumented in this encounter Care Teams Wool Supplier Relationship Specialty Start Date End Date Coni Lim MD [address] [place] [address] PCP - General 07/16/10 documented as of this encounter
--- OUTSIDE RECORDS SUMMARY | 2024-08-19 14:55 | XMS_ITS | Encounter Summary ---
Author Organization [facility] [place] [address] Care Team Providers Care Security Intern Name Role Phone Coni Lim MD Primary Care Provider [phone] Encounter Details Date Type Department Care Team (Late st Contact Info) Description 11/17/2013 Abstract Cardiology at [address] [phone] Anastasiya Paulino, RN Social History Tobacco Use [...] filedocumented in this encounter Care Teams Security Intern Relationship Specialty Start Date End Date Coni Lim MD [address] [place] [address] PCP - General 07/16/10 documented as of this encounter
--- OUTSIDE RECORDS SUMMARY | 2024-08-19 14:55 | XMS_ITS | Encounter Summary ---
Author Organization [facility] [place] [address] Care Team Providers Care Garde Manager Name Role Phone Coni Lim MD Primary Care Provider [phone] Reason for Visit * Reason Onset Date Comments Medication Refill 08/10/2013 Encounter Details Date Type Department Care Team (Late st Contact Info) Description 08/10/2013 Refill Cardiology at [address] [phone] Turner Tan MD Medication Refill Social History Tobacco Use Types [...] Coronary atherosclerosis of unspecified type of vessel, [place] or graft documented in this encounter Care Teams Garde Manager Relationship Specialty Start Date End Date Coni Lim MD [address] [place] [address] PCP - General 07/16/10 documented as of this encounter
--- OUTSIDE RECORDS SUMMARY | 2024-08-19 14:55 | XMS_ITS | Encounter Summary ---
Author Organization [facility] Address [facility] [place] [address] Care Team Providers Care Cell Maker Name Role Phone Sarita Chew MD Primary Care Provider [phone] Reason for Referral * (Routine) - Closed by system - Referral Specialty Diagnoses / Procedures Referred By Contac t Referred To Contact Cardiac Rehabilitation Diagnoses S/P coronary artery stent placement Edy Trimble MD [facility] [address] [place] [address] Referral ID Status Reason Start Date Expiration Date Visits Requested Visits Authorized [id number] Closed by system - Referral Evaluate and Treat 07/30/2013 01/26/2014 1 1 Encounter Details Date Type Department Care Team (Late st Contact Info) Description 07/29/2013 5:57 AM EST - 07/30/2013 10:58 AM EST Hospital Encounter [place] [id number] Taylor Dickinson PA Hettleman, Bruce D, MD [facility] [place] [address] Agusto Ball II, MD Kaplan, Aaron V, MD [facility] [place] [address] [place] [address] ASCVD (arteriosclerotic cardiovascular disease); S/P coronary artery [...] appointments: During 8am-5pm Thursday through Thursday call [phone] to speak with a nurse in the cardiology clinic All other times call [phone] and ask to speak to the heating and ventilation engineer sr solutions consultant. Return to work: One week Driving: No driving for 48 hours after catheterization. Follow up Appointments: PCP Call for appointment in 1-2 weeks. Collection Card Clerk You should be seen in 3-4 weeks for follow up. Please call for appointment Home oxygen therapy: N/A Arrangements for VNA/home care: none * Attachments The following attachments cannot be sent through Care Everywhere. * CARDIAC REHABILITATION: AFTER YOUR VISIT (ZIMBABWEAN) * CHEST PAIN (ANGINA): AFTER YOUR VISIT (ZIMBABWEAN) * PERCUTANEOUS CORONARY INTERVENTION: WHAT TO EXPECT AT HOME (ZIMBABWEAN) documented in this encounter Medications at Time [...] mg/dL MISCELLANEOUS LAB REQUEST Component Value Range [facility] Lab Result Request received in lab. CK-MB [...] the Treatment of Subjects with de abby [place] Coronary Artery Lesions PI: Edy Trimble MD Pager #:[phone] Research Coordinators: Curt Silva, BS, BA, TRACK REPAIR SUPERVISOR Pager #:[phone] Oneil Newsome, VERO Pager #: [phone] Purpose: The pivotal trial to support the [place] pre-market approval (PMA) of Absorb BVS. ABSORB III will evaluate the safety and effectiveness of the Absorb BVS System compared to the XIENCE in the treatment of subjects, including those with diabetes mellitus, with ischemic heart disease caused by up to two [place] coronary artery lesions in separate epicardial vessels. [...] through 5 years post procedure. Study ID#: [id number], JAM NOTE: Patient must remain blinded to their assigned study device!! * Curt Silva - 07/29/2013 7:25 AM EST ABSORB III RANDOMIZED CONTROLLED TRIAL A Clinical Evaluation of Absorb??? BVS, the Everolimus Eluting Bioresorbable Vascular Scaffold in the Treatment of Subjects with de abby [place] Coronary Artery Lesions PI: Edy Trimble MD Pager #:[phone] Research Coordinators: GLADYS Rosenbaum, BA, TRACK REPAIR SUPERVISOR Pager #:[phone] Oneil Newsome RN Pager #: [phone] Purpose: The pivotal trial to support the [place] pre-market approval (PMA) of Absorb BVS. ABSORB III will evaluate the safety and effectiveness of the Absorb BVS System compared to the XIENCE in the treatment of subjects, including those with diabetes mellitus, with ischemic heart disease caused by up to two [place] coronary artery lesions in separate epicardial vessels. [...] - 07/29/2013 11:16 AM EST Romeo Coe [id number] 07/29/2013 48 y.o. Admission History and Physical [...] and clopidogrel per protocol. Randell Giles MD Chief Controller Pager# [phone] 07/29/2013 Cardiology Attending Note: Patient seen and [...] 08/01/2013 8:56 PM ESTAssociated Order(s): SCAN DOC: ORTHOPEDIC PHYSICIAN documented in this encounter Miscellaneous Notes * Consult Note - Zunilda Fletcher RN - 07/29/2013 3:34 PM EST Romeo Kiesha Coe was seen today by Cardiac Rehabilitation [...] to the outpatient cardiac rehabilitation program at [facility] was discussed. He participated briefly in the program at [facility] last year ( closest to him) but did not have a good experience so stopped. A referral will be sent to [facility] the program and the patient will be contacted within 2 weeks. * Discharge Summary - Turner Tan Mulugeta - 07/29/2013 11:23 AM EST Inpatient Cardiology [...] with 3.5 X 18 mm [facility] 2009 post abnormal nuc stress +IW, EF [...] appointments: During 8am-5pm Thursday through Thursday call [phone] to speak with a nurse in the cardiology clinic All other times call [phone] and ask to speak to the heating and ventilation engineer sr solutions consultant. Return to work: One week Driving: No driving for 48 hours after catheterization. Follow up Appointments: PCP Call for appointment in 1-2 weeks. Collection Card Clerk You should be seen in 3-4 weeks for follow up. Please call for appointment Home oxygen therapy: N/A Arrangements for VNA/home care: none General Instructions None Future Appointments and Orders Future Orders Please Complete By Expires Referral to Cardiac Rehab [[id number] Custom] Process Instructions: If no progress note charted, please enter Clinical details in comments. Scheduling Instructions: Comments: Cardiac rehab @ [facility] Questions: Responses: Reason for referral angina, stent Provider Contact Information: Dr. Atilio Giles Section of Cardiology [facility] [phone] Discharge References/Attachments: Discharge References/Attachments None Signed: Turner [...] Procedure Name Priority Date/Time Associated Diagnosis Comments ORTHOPEDIC PHYSICIAN SCAN 08/01/2013 8:56 PM EST EKG 12-LEAD Routine 07/30/2013 8:41 AM EST ASCVD (arteriosclerotic cardiovascular disease) POCT GLUCOSE Routine 07/30/2013 8:09 AM EST DIFFERENTIAL, AUTOMATED Routine 07/30/2013 6:35 AM EST CBC (WITH DIFF) Routine 07/30/2013 6:35 AM EST BMP W/FASTING GLUCOSE Routine 07/30/2013 6:30 AM EST CARDIAC ENZYMES ([facility]CGP) Routine 07/30/2013 6:30 AM EST LIPID PANEL (REFLEX DIRECT LDL) Routine 07/30/2013 6:30 AM EST MISCELLANEOUS LAB REQUEST Timed 07/30/2013 6:00 AM EST POCT GLUCOSE Routine 07/30/2013 4:18 AM EST POCT GLUCOSE Routine 07/30/2013 12:17 AM EST POCT GLUCOSE Routine 07/29/2013 8:02 PM EST MISCELLANEOUS LAB REQUEST Timed 07/29/2013 6:05 PM EST POCT GLUCOSE Routine 07/29/2013 4:53 PM EST CARDIAC ENZYMES ([facility]) STAT 07/29/2013 12:53 PM EST POCT GLUCOSE Routine 07/29/2013 12:36 PM EST EKG 12-LEAD Routine 07/29/2013 11:26 AM EST ASCVD (arteriosclerotic cardiovascular disease) CARDIAC ENZYMES ([facility]CG[facility]) Routine 07/29/2013 10:55 AM EST MISCELLANEOUS LAB REQUEST Routine 07/29/2013 9:24 AM EST EKG 12-LEAD Routine 07/29/2013 7:50 AM EST ASCVD (arteriosclerotic cardiovascular disease) POCT GLUCOSE Routine 07/29/2013 7:46 AM EST ELECTROLYTES PANEL STAT 07/29/2013 6: 06 AM EST ASCVD (arteriosclerotic cardiovascular disease) documented in this encounter Results * SCAN DOC: ORTHOPEDIC PHYSICIAN (08/01/2013 8:56 PM EST) Anatomical Region Laterality [...] (Bezet) 405 ms MUSE SYSTEM Calculated P Head[place] 7 degrees MUSE SYSTEM Calculated R Head[place] 24 degrees MUSE SYSTEM Calculated T [place] 20 degrees MUSE SYSTEM INTERPRETATION Normal sinus rhythm Normal ECG When compared with ECG of 29-JUL-2013 11:26, No significant change was found Confirmed by MD JACKSON, [place] ([id number]) on 07/30/2013 11:46:49 AM MUSE SYSTEM 07/30/2013 [...] OF CARE TEST ORDERABLES CERNER MILLENNIUM * Differential, Automated (07/30/2013 6:35 [...] HEMATOLOGY ORDERABLE S Performing Organization Address [facility] Co de Phone Number CERANNABEL CLEMENSIUM * CBC (with Diff) (07/30/2013 6:35 [...] MD HEMATOLOGY ORDERABLE S Performing Organization Address City/[facility] Co de Phone Number TANG NORTON * (ABNORMAL) Lipid panel (fasting) (07/30/2013 6:30 AM EST) Cholesterol, Total 154 <=199 mg/dL CERNER MILLENNIUM Comment: Recommendations of the NCEP Adult Treatment Panel for the following risk cutoff thresholds for the [place] population: Desirable: <200 mg/dL Borderline High: 200-239 mg/dL High: > or = 240 mg/dL Triglyceride 156(H) <=149 mg/dL CERNER MILLENNIUM Comment: Reference Range: Normal triglycerides: ??<150 mg/dL Borderline high: ??150-199 mg/dL High: ??200-499 mg/dL Very high: ??>mg=721 mg/dL RACHEL 2001; 285(19):8403-7776 HDL Cholesterol 36(L) >=40 mg/dL [facility] Comment: Reference range: ??Low HDL: ?? < 40 mg/dL ??Normal: ?40-60 mg/dL ??Desirable: > 60 mg/dL RACHEL 2001; 285(19):5745-0766 LDL Cholesterol 87 <=99 mg/dL [facility] Comment: Reference range: ?? Optimal: ?<100 mg/dL ?? Near Optimal/Above Optimal: ?? 100-129 mg/dL ?? Borderline high: ?130-159 mg/dL ?? High: ? 160-189 mg/dL ?? Very high: ?>cr=641 mg/dL RACHEL 2001: 285(19):3493-4117 Cholesterol/HDL Ratio 4.3 ratio [facility] Comment: A Cholesterol to HDL ratio below 4:1 is desirable. ??Studies suggest that increased CAD risk occurs at ratios above 5 for females and above 6 for men. ? [place] Heart Association ??(http://www.americanheart.org) ? Pallavi Int Med, 1994; 121:641 ? AM J Med, 1998; 105(1A):48S Blood specimen (specimen) 07/30/2013 6:30 AM EST 07/30/2013 6:44 AM EST Narrative Resulting Agency Comment Spec In Lab Edy Damon MD CHEMISTRY ORDERABLES [facility] * (ABNORMAL) BMP w/fasting Glucose (07/30/2013 6:30 AM EST) [facility] Glucose Fasting 156(H) 65 - 99 mg/dL [...] of Diabetes Mellitus, Position Statement from the [place] Diabetes Association. ??Diabetes Care, Volume 33, Supplement 1, Aug 2009 Blood Urea Nitrogen 11 10 - 20 mg/dL CERNER MILLENNIUM Creatinine 0.62(L) 0.80 - 1.50 mg/dL CERNER MILLENNIUM Comment: Please note that the pediatric reference intervals supplied above were not validated at [facility]. Results from pediatric patients should [...] Damon MD CHEMISTRY ORDERABLES Performing Organization Address [facility] de Phone Number TANG JENSENStartupHighwayEMORY * Cardiac Enzymes (07/30/2013 6:30 AM EST) [facility] Troponin-T <0.03 <=0.03 ng/mL [facility] Comment: 0.03 ng/mL: Represents the 99th percentile upper reference limit for normals. >0.03 ng/mL: Elevated cardiac troponin T level indicative of myocardial damage. Diagnosis of acute, evolving or recent AK requires a typical rise and gradual fall [...] consensus document of the Joint Society of Cardiology/[place] College of Cardiology Committee for the redefinition of myocardial infarction. ??Journal of the [place] College of Cardiology 2000; 36: 959-969] Creatine Kinase 60 0 - 200 unit/L [facility] Blood specimen (specimen) 07/30/2013 6:30 AM EST 07/30/2013 6:44 AM EST Narrative Resulting Agency Comment Spec In Lab Edy Damon MD CHEMISTRY ORDERABLES Performing Organization Address [facility] Co de Phone Number TANG NORTON * Miscellaneous Lab request (07/30/2013 6:00 AM EST) Label Request received in lab. [facility] Blood specimen (specimen) 07/30/2013 6:00 AM EST 07/30/2013 6:31 AM EST Edy Damon MD LAB SEND OUT ORDERAB LES Performing Organization Address [facility] Phone Number [facility] * POCT Glucose (07/30/2013 4:18 AM EST) Glucose, POC 145 60 - 199 mg/dL [facility] Comment: Supplemental ranges: <110 mg/dL before meals <200 mg/dL all other times of the day Blood specimen (specimen) 07/30/2013 4:18 AM EST 07/30/2013 4:18 AM EST Supa Lopez MD POINT OF CARE TEST ORDERABLES Performing Organization Address [facility] Phone Number [facility] * POCT Glucose (07/30/2013 12:17 AM EST) Glucose, POC 129 60 - 199 mg/dL [facility] Comment: Supplemental ranges: <110 mg/dL before meals <200 mg/dL all other times of the day Blood specimen (specimen) 07/30/2013 12:17 AM EST 07/30/2013 12:17 AM EST Supa Lopez MD POINT OF CARE TEST ORDERABLES Performing Organization Address [facility] Phone Number [facility] * POCT Glucose (07/29/2013 8:02 PM EST) Glucose, POC 127 60 - 199 mg/dL [facility] Comment: Supplemental ranges: <110 mg/dL before meals <200 mg/dL all other times of the day Blood specimen (specimen) 07/29/2013 8:02 PM EST 07/29/2013 8:02 PM EST Supa Lopez MD POINT OF CARE TEST ORDERABLES Performing Organization Address [facility] Co de Phone Number [facility] * Miscellaneous Lab request (07/29/2013 6:05 PM EST) Pathologist [facility] Label Request received in lab. [facility] Blood specimen (specimen) 07/29/2013 6:05 PM EST 07/29/2013 6:17 PM EST Edy Damon MD LAB SEND OUT ORDERAB LES Performing Organization Address [facility] Co de Phone Number [facility] * POCT Glucose (07/29/2013 4:53 PM EST) Pathologist [facility] Glucose, POC 138 60 - 199 mg/dL [facility] Comment: Supplemental ranges: <110 mg/dL before meals <200 mg/dL all other times of the day Blood specimen (specimen) 07/29/2013 4:53 PM EST 07/29/2013 4:53 PM EST Supa Lopez MD POINT OF CARE TEST ORDERABLES Performing Organization Address [facility] de Phone Number [facility] * Cardiac Enzymes (07/29/2013 12:53 PM EST) [facility] Troponin-T <0.03 <=0.03 ng/mL [facility] Comment: 0.03 ng/mL: Represents the 99th percentile upper reference limit for normals. >0.03 ng/mL: Elevated cardiac troponin T level indicative of myocardial damage. Diagnosis of acute, evolving or recent AK requires a typical rise and gradual fall [...] consensus document of the Joint Society of Cardiology/[place] College of Cardiology Committee for the redefinition of myocardial infarction. ??Journal of the [place] College of Cardiology 2000; 36: 959-969] Creatine Kinase 55 0 - 200 unit/L [facility] Blood specimen (specimen) 07/29/2013 12:53 PM EST 07/29/2013 12:59 PM EST Narrative Resulting Agency Comment Spec In Lab Edy Damon MD CHEMISTRY ORDERABLES Performing Organization Address [facility] Co de Phone Number [facility] * POCT Glucose (07/29/2013 12:36 PM EST) Glucose, POC 142 60 - 199 mg/dL [facility] Comment: Supplemental ranges: <110 mg/dL before meals <200 mg/dL all other times of the day Blood specimen (specimen) 07/29/2013 12:36 PM EST 07/29/2013 12:36 PM EST Supa Lopez MD POINT OF CARE TEST ORDERABLES Performing Organization Address [facility] de Phone Number [facility] * EKG 12 Lead (07/29/2013 11:26 AM EST) Ventricular rate 67 BPM MUSE SYSTEM Atrial Rate 67 BPM MUSE SYSTEM P-R Interval 164 ms MUSE SYSTEM QRS Duration 90 ms MUSE SYSTEM Q-T Interval 394 ms MUSE SYSTEM QTC Calculated (Bezet) 416 ms MUSE SYSTEM Calculated P Headland 48 degrees MUSE SYSTEM Calculated R [place] 33 degrees MUSE SYSTEM Calculated T [place] 32 degrees MUSE SYSTEM INTERPRETATION Normal sinus rhythm Normal ECG When compared with ECG of 29-JUL-2013 07:50, (unconfirmed) No significant change was found Confirmed by MD SELINA, FRED ([id number]) on 07/30/2013 7:39:47 AM MUSE SYSTEM 07/29/2013 11:2 6 AM EST 07/30/2013 7:39 AM EST Edy Damon MD ECG ORDERABLES Performing Organization Address [facility] Co de Phone Number MUSE SYSTEM * Cardiac Enzymes (07/29/2013 10:55 AM EST) Troponin-T <0.03 <=0.03 ng/mL TANG NORTON Comment: 0.03 ng/mL: Represents the 99th percentile upper reference limit for normals. >0.03 ng/mL: Elevated cardiac troponin T level indicative of myocardial damage. Diagnosis of acute, evolving or recent AK requires a typical rise and gradual fall [...] consensus document of the Joint Society of Cardiology/[place] College of Cardiology Committee for the redefinition of myocardial infarction. ??Journal of the [place] College of Cardiology 2000; 36: 959-969] Creatine Kinase 50 0 - 200 unit/L TANG NORTON Blood specimen (specimen) 07/29/2013 10:55 AM EST 07/29/2013 11:08 AM EST Narrative Resulting Agency Comment Spec In Lab Edy Damon MD CHEMISTRY ORDERABLES Performing Organization Address [facility] Co de Phone Number TANG NORTON * Miscellaneous Lab request (07/29/2013 9:24 AM EST) Label Request received in lab. TANG NORTON Blood specimen (specimen) 07/29/2013 9:24 AM EST 07/29/2013 10:56 AM EST Edy Damon MD LAB SEND OUT ORDERAB LES Performing Organization Address [facility] Co de Phone Number TANG NORTON * EKG 12 Lead (07/29/2013 7:50 AM EST) Ventricular rate 72 BPM MUSE SYSTEM Atrial Rate 72 BPM MUSE SYSTEM P-R Interval 136 ms MUSE SYSTEM QRS Duration 94 ms MUSE SYSTEM Q-T Interval 372 ms MUSE SYSTEM QTC Calculated (Bezet) 407 ms MUSE SYSTEM Calculated P Headland 3 degrees MUSE SYSTEM Calculated R [place] 42 degrees MUSE SYSTEM Calculated T [place] 36 degrees MUSE SYSTEM INTERPRETATION Normal sinus rhythm Normal ECG When compared with ECG of 15-JUN-2012 12:40, No significant change was found Confirmed by MD MARKS ALAN ([id number]) on 07/30/2013 7:24:11 AM MUSE SYSTEM 07/29/2013 7:50 AM EST 07/30/2013 7:24 AM EST Edy Damon MD ECG ORDERABLES Performing Organization Address [facility] de [...] OF CARE TEST ORDERABLES Performing Organization Address [facility] de Phone Number CERNER MILLENNIUM * (ABNORMAL) Electrolytes panel (07/29/2013 [...] Ball MD CHEMISTRY ORDERABLES Performing Organization Address [facility]/State/ZIP Co de Phone Number TANG NORTON documented in this encounter Visit Diagnoses Diagnosis CAD (coronary artery disease), non-obstructive- Primary Coronary atherosclerosis of unspecified type of vessel, [place] or graft ASCVD (arteriosclerotic cardiovascular disease) Unspecified [...] Intravenous, EVERY 12 HOURS, First dose on 12/6/13 at 0800, Until Discontinued, Cath (Day of [...] Reason: Transfer to a Procedural area)1343 ([facility] Unhold - Provider: [...] Reason: Transfer to a Procedural area)1343 ([facility] Unhold - Provider: Admin Adt) 0826 (Given - Provider: Reina Randall RN) cyclobenzaprine (FLEXERIL) tablet 10 mg (CANCELED) 10 mg, Oral, NIGHTLY, First dose on Thu07/29/13 at 2100, Until Discontinued, Routine 1342 (OCT Hold - Provider: Admin Adt - Reason: Transfer to a Procedural area)1343 ([facility] Unhold - Provider: Admin Adt)2122 (Given - Provider: Mahesh Hurt RN) diaZEPam (VALIUM) tablet 5 mg (COMPLETED) 5 mg, Oral, ONCE, 1 dose, On Thu07/29/13 at 0800, Cath (Day of Procedure), Routine 0838 (Given - Provider: Kemi Mullen, RN) DILTiazem (DILACOR XR) XR capsule 240 mg (CANCELED) 240 mg, Oral, DAILY, First dose on Thu07/30/13 at 0900, Until Discontinued, Routine 1342 ([facility] Hold - Provider: Admin Adt - Reason: Transfer to a Procedural area)1343 ([facility] Unhold - Provider: [...] at 2100, Until Discontinued, Routine 1342 ([facility] Hold - Provider: Admin Adt - Reason: Transfer to a Procedural area)1343 ([facility] Unhold - Provider: Admin Adt)2122 (Given - Provider: Mahesh Hurt RN) 08 (Given - Provider: Reina Randall RN) furosemide (LASIX) tablet 20 mg (CANCELED) 20 mg, Oral, DAILY, First dose on Thu07/29/13 at 1245, Until Discontinued, Routine 1245 (Not Given - Provider: Jessica Barr RN - Reason: Patient/family refused)1342 ([facility] Hold - Provider: Admin Adt - Reason: Transfer to a Procedural area)1343 ([facility] Unhold - Provider: Admin Adt) 0826 (Given - Provider: Reina Randall RN) gabapentin (NEURONTIN) capsule 300 mg (CANCELED) 300 mg, Oral, 3 TIMES DAILY, First dose on Thu07/29/13 at 1500, Until Discontinued, Routine 1342 ([facility] Hold - Provider: Admin Adt - Reason: Transfer to a Procedural area)1343 ([facility] Unhold - Provider: Admin Adt)1500 (Given - Provider: Jessica Barr, VERO)2122 (Given - Provider: Mahesh Hurt RN) 0826 [...] Provider: Mahesh Hurt RN - Reason: Contraindicated) 14 (Not Given - Provider: Mahesh Hurt RN - Reason: Contraindicated)0424 (Given - Provider: Mahesh Hurt RN)0815 (Given - Provider: Reina Randall RN - Comment: FSBS 156) isosorbide mononitrate (IMDUR) CR tablet 120 mg (CANCELED) 120 mg, Oral, EVERY MORNING, First dose on Thu07/30/13 at 0600, Until Discontinued, Routine 1342 (MAR Hold - Provider: Admin Adt - Reason: Transfer to a Procedural area)1343 ([facility] Unhold - Provider: Admin Adt) 0638 (Given - Provider: Mahesh Hurt RN) metoprolol tartrate (LOPRESSOR) tablet 50 mg (CANCELED) 50 mg, Oral, 2 TIMES DAILY, First dose on Thu07/29/13 at 1245, Until Discontinued, Routine 1245 (Not Given - Provider: Jessica Barr RN - Reason: See comment - Comment: pt took in a.m.)1342 ([facility] Hold - Provider: Admin Adt - Reason: Transfer to a Procedural area)1343 ([facility] Unhold - Provider: Admin Adt)2122 (Given - Provider: Mahesh Hurt RN) 0826 (Given - Provider: Reina Randall RN) pantoprazole (PROTONIX) tablet 20 mg 20 mg, Oral, DAILY, First dose on Thu07/30/13 at 0900, Until Discontinued, Restricted to patients on clopidpgrel (PLAVIX) who require a proton pump inhibitor 1342 (OCT Hold - Provider: Admin Adt - Reason: Transfer to a Procedural area)1343 ([facility] Unhold - Provider: Admin Adt) 0826 (Given - Provider: Reina Randall RN) rosuvastatin (CRESTOR) tablet 10 mg (CANCELED) 10 mg, Oral, EVERY EVENING, First dose on Thu07/29/13 at 1700, Until Discontinued, Routine 1342 (OCT Hold - Provider: Admin Adt - Reason: Transfer to a Procedural area)1343 ([facility] Unhold - Provider: Admin Adt)1700 [...] of Procedure) 0800 (Restarted - Provider: Jessica Barr, VERO)1001 (New Bag - Provider: Juan Ren RN) sodium chloride 0.9% infusion () 150 mL/hr, Intravenous, CONTINUOUS, Starting on Thu07/29/13 at 1145, Until Thu07/29/13 at 1944 1125 (New Bag - Provider: Keeley Kyle RN)1342 ([facility] Hold - Provider: Admin Adt - Reason: Transfer to a Procedural area)1343 ([facility] Unhold - Provider: Admin Adt)1652 (Stopped - Provider: Jessica Barr RN) PRN Medication Order 07/28/2013 07/29/2013 07/30/2013 adenosine 90 mg in sodium chloride 0.9% 90 mL infusion (BAKERY DECORATOR) (CANCELED) CONTINUOUS PRN, Starting on Thu07/29/13 at [...] (Intra-Procedure), Routine 1002 (Given - Provider: Juan Rne RN) fentaNYL 50mcg/mL injection (CANCELED) ONCE PRN, [...] MD) documented in this encounter Care Teams Cell Maker Relationship Specialty Start Date End Date Sarita Chew MD [address] [place] [address] PCP - General 07/16/10 documented as of this encounter
--- OUTSIDE RECORDS SUMMARY | 2024-08-19 14:55 | XMS_ITS | Encounter Summary ---
Author Organization [facility] [place] [address] Care Team Providers Care Aircraft Refueler Name Role Phone Coni Lim MD Primary Care Provider [phone] Encounter Details Date Type Department Care Team (Late st Contact Info) Description 07/25/2015 Telephone Cardiology at [address] [phone] Yessy Pugh Social History Tobacco Use Types [...] a week. I havemade Aldair Patel, the clinical data coordinator aware. documented in this encounter Plan of Treatment Not on file documented as of this encounter Visit Diagnoses Not on filedocumented in this encounter Care Teams Aircraft Refueler Relationship Specialty Start Date End Date Coni Lim MD [address] [place] [address] PCP - General 07/16/10 documented as of this encounter
--- OUTSIDE RECORDS SUMMARY | 2024-08-19 14:55 | XMS_ITS | Encounter Summary ---
Author Organization [facility] Address [facility] [place] [address] Care Team Providers Care Geological Engineering Teacher Name Role Phone Coni Lim MD Primary Care Provider [phone] Reason for Visit * Auth/Cert Specialty Diagnoses / Procedures Referred By Ruby garvin Referred To Contact Diagnoses Unstable angina [place] Referral ID Status Reason Start Date Expiration Date Visits Re quested Visits Authorized [id number] 1 1 Encounter Details Date Type Department Care Team (Late st Contact Info) Description 11/24/2016 2:40 PM EDT - 11/24/2016 3:40 PM EDT [place] [address] Anton Horvath MD [facility] [place] [address] CARDIAC CATHETERIZATION Social History Tobacco Use Types [...] in this encounter Discharge Summaries * Keisha Roes APRN - 11/22/2016 7:46 PM EDT Images from the original note were not included. Discharge Summary Patient Name: Romeo Coelho Patient Age: 51 y.o. Language: Ghanaian Race: White Ethnicity: Not nor Admit date: 11/21/2016 Discharge date and time: 11/25/2016 Attending Physician: Roque Sanches MD Discharge Physician: Roque Sanches MD Follow-up Recommendations for Providers: 1. Admitted with unstable angina. Drug-eluting stent RCA. 2. Requires dual antiplatelet therapy for 1 year 3. Smoking cessation Inpatient Provider Contact Information: Keisha Rose APRN [facility] Provider # [id number] Discharge Diagnoses (Hospital Problems) [...] stent restenosis addressed with LAD stentangioplasty at [facility] in January 2014), DM2, HTN, dyslipidemia, continued tobacco use, and obesity was transferred from [facility] to [facility] for further evaluation of unstable angina. Prior [...] PF, Split 07/30/2013 ??? Influenza Vaccine (Novel) [id number], Injectable 05/24/2009 ??? Influenza Vaccine w/Preservative, Split [...] contact one of the cardiology nurses at [facility] during normal business hours(Thursday through Thursday, 8 AM to 5 PM) at . During nonbusiness hours (evenings, nights, weekends, holidays), you may contact the spa concierge deck mechanic at . Return to work: -unemployed Driving: -No driving for 48 hours after catheterization. Follow up Appointments: ?? PCP: Coni Lim MD will see you on November 28, 2016 at 2:[address] [facility]. You may contact her office at [phone] with any questions or concerns ?? Cardiology: Please see Dr. Ling in [place], [place] on December 16 at 11:00 AM. His office may be contacted at with any questions or concerns. Home oxygen therapy: N/A Arrangements for VNA/home care: none Discharge References/Attachments None Keisha Rose APRN Nurse Practitioner-Department of Cardiology [email or web address] Pager [phone] Phone number: [phone] Fax number [phone] I have discussed this patient with attending [...] contact one of the cardiology nurses at [facility] during normal business hours(Thursday through Thursday, 8 AM to 5 PM) at . During nonbusiness hours (evenings, nights, weekends, holidays), you may contact the spa concierge deck mechanic at . Return to work: -unemployed Driving: -No driving for 48 hours after catheterization. Follow up Appointments: ?? PCP: Coni Lim MD will see you on November 28, 2016 at 2:[address] [facility]. You may contact her office at [phone] with any questions or concerns ?? Cardiology: Please see Dr. Ling in [place], [place] on December 16 at 11:00 AM. [...] Nicotine Replacement Therapy , November 23, 2012: https://www.federalregister.gov/articles//2013-43152/modificati dwl-gn-pppsskgg-lz-igfqtlqu-dcgeguykwhm-szhdbdc-svjfgnge-owt-aebn-hzq-sohbuok-hu man-use Nicotine lozenge instructions: Use the 4 [...] Nicotine Replacement Therapy , November 23, 2012: https://www.federalregister.gov/articles//2013-93083/modificati svt-mf-tfyzfydh-mx-bxnbbypn-xfiyjyljwod-ydexrfy-zxpwljvr-fbk-quzo-zyd-zapftih-hu man-use Remember to cut down on regular [...] please call them.The number is in the [facility] Tobacco Cessation folder you were given. Contact [...] Progress Note Patient Name: Romeo Coelho Service: ANIMAL PATHOLOGIST / PA Responsible Attending: Roque Sanches MD [...] priority for the procedure was Urgent. The [facility] indication for the procedure was PCI [...] restenosis addressed with LAD stent angioplasty at [facility] in January 2014, DM2, HTN, dyslipidemia, continued tobacco use, and obesity transferred to [facility] for further evaluation of unstable angina. Underwent Cardiac catheterization to day (11/24/16)-CI of RCA Comfortable overnight Smoking cessation consult Plan: 1. Unstable angina LAD and LCx disease defined at prior cardiac catheterizations (at [facility] and [facility]) Describes crescendo anginal symptoms which have [...] Continued tobacco use. I have spoken to Sahnia Staley from Smoking Cessation She will see [...] Progress Note Patient Name: Romeo Coelho Service: ANIMAL PATHOLOGIST / PA Responsible Attending: Roque Sanches MD [...] restenosis addressed with LAD stent angioplasty at [facility] in January 2014, DM2, HTN, dyslipidemia, continued tobacco use, and obesity transferred to [facility] for further evaluation of unstable angina. Cardiac catheterization today ( 7). Plan: 1. Unstable angina LAD and LCx disease defined at prior cardiac catheterizations (at [facility] and [facility]) Describes crescendo anginal symptoms which have [...] Progress Note Patient Name: Romeo Coelho Service: ANIMAL PATHOLOGIST / PA Responsible Attending: Roque Sanches MD [...] restenosis addressed with LAD stent angioplasty at [facility] in January 2014, DM2, HTN, dyslipidemia, continued tobacco use, and obesity transferred to [facility] for further evaluation of unstable angina. Cardiac catheterization anticipated tomorrow AM (11/24/16). Plan: 1. Unstable angina LAD and LCx disease defined at prior cardiac catheterizations (at [facility] and [facility]) Describes crescendo anginal symptoms which have [...] Progress Note Patient Name: Romeo Coelho Service: ANIMAL PATHOLOGIST / PA Responsible Attending: Roque Sanches MD [...] restenosis addressed with LAD stent angioplasty at [facility] in January 2014, DM2, HTN, dyslipidemia, continued tobacco use, and obesity transferred to [facility] for further evaluation of unstable angina. Cardiac catheterization anticipated soon. Plan: 1. Unstable angina LAD and LCx disease defined at prior cardiac catheterizations (at [facility] and [facility]) Describes crescendo anginal symptoms which have [...] a 51 yr M ( Transferred from [place]) PMH of CAD - multiple PCIs in past, latest cath in January 2014 ( at [facility] ) JACINDA x2 to LAD, prior instent [...] in ED. Symptoms reminiscent of his prior MD / Unstable angina. Compliant with meds . [...] of Onset ??? Myocardial Infarction Father 46 MD, CABG ??? Diabetes Mother ??? Hypertension Mother [...] son (age 18 months), daughter 11 in [place], [place]. Takes care of his mother who has dementia and he takes her to dialysis. is disabled. Has grown daughter who is 29 years old. 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 Similar in character to prior MD / UA; Nitrate responsive. ECG : nsr [...] in the outpatient cardiac rehabilitation program at [place] was discussed. Patient agrees to a referral [...] of Onset ??? Myocardial Infarction Father 46 MD, CABG ??? Diabetes Mother ??? Hypertension Mother [...] his brain. TREATMENT PLAN/RECOMMENDATIONS: [X ] Provide [facility] Tobacco Cessation Packet Discuss and prescribe (if [...] 8-end 1 mg PO BID Refer to [place] [employer] e-referral placed X Refer to [...] up with either PCP and/or Quit line [phone]. X These recommendations have been discussed with the patient's primary team. DARCY STALEY APRN, [facility] Pager #[phone] [facility] Thoracic Surgery Time spent [...] Within the Past 30 Days: None at [facility], nor at outside hospitals, per pt's report. 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 I've been disabled for five years due to Fibromyalgia and Arthritis. Home Environment: Lives with his , Dasia in [place], [place]. Social & Family Supports/Community Resources: Dasia Coelho (Spouse) [address] [facility] [address] (H) [phone] (M) Behavioral Health History: Per pt report, [...] Coverage: Yes, has Silver Script. Preferred Pharmacy: [id number] - [place], [place] - [address] [place] [address] ? [address] [place] [id number] ? Not a 24 hour pharmacy; exact hours not known Other: None Primary Care Provider: Coni Lim MD [phone] Patient/Caregiver Goals of Treatment: To return home and to his normal activities. Potential Needs for Transition of Care: Rehab/SNF: Pt has never been a pt in a rehab setting. Home Health: [facility] in the past (after right [...] of care planning. SON MARLEY RN Pager: [phone] * Plan of Care - Christy Medina [...] Radiograph today, Echo and Cardiac Enzymes Pending S[employer] [facility] ? Thursday more likely Thursday (pt. Informed) [...] online chart. Telemetry Report: [id number]: Intermittent [place], [place] 0.17, QRS 0.08, RR 0.75, QT 0.35, [...] to the best of my ability. Romeo Weinreoney was offered copies of [facility] publications; Are You a Hospital Inpatient or Outpatient?and Medicare Rights and Protections. Notice has been signed along with date and time, a copy of notice made and given to patient/banking representative. Original notice to be scanned into [...] Name Priority Date/Time Associated Diagnosis Comments SURGICAL LEAD SCAN 11/26/2016 12:00 AM EDT POCT GLUCOSE Routine 11/25/2016 7:42 AM EDT EKG 12-LEAD Routine 11/25/2016 7:23 AM EDT Unstable angina BMP W/FASTING GLUCOSE Routine 11/25/2016 4:52 AM EDT HEMOGRAM Routine 11/25/2016 4:52 AM EDT DIFFERENTIAL, AUTOMATED Routine 11/26/19 4:52 AM EDT CARDIAC ENZYMES ([facility]) Routine 11/25/2016 4:52 AM EDT CBC (WITH [...] Routine 11/22/2016 12:11 PM EDT CARDIAC ENZYMES ([facility]) STAT 11/22/2016 10:06 AM EDT APTT Routine [...] 11/23/19 17 3:58 AM EDT CARDIAC ENZYMES ([facility]) Routine 11/22/2016 3:58 AM EDT APTT STAT 11/22/2016 3:58 AM EDT CBC (WITH DIFF) Routine 11/22/2016 3:58 AM EDT LIPID PANEL (REFLEX DIRECT LDL) Routine 11/22/2016 3:58 AM EDT EKG 12-LEAD STAT 11/21/2016 8:34 PM EDT Unstable angina HEMOGRAM STAT 11/21/2016 8:32 PM EDT DIFFERENTIAL, AUTOMATED STAT 11/22/19 17 8:32 PM EDT CARDIAC ENZYMES ([facility]) STAT 11/21/2016 8:32 PM EDT APTT STAT [...] in this encounter Results * SCAN DOC: SURGICAL LEAD (11/26/2016 12:00 AM EDT) Anatomical Region Laterality Modality Other Narrative 11/26/2016 12:00 AM EDT Ordered by an unspecified provider. Scanning Provider MEDIA MGR SCAN EXT O RDR/RSLT * POCT Glucose (11/25/2016 7:42 AM EDT) [facility] Glucose, POC 123 65 - 199 mg/dL [facility] Comment: Supplemental ranges: <140 mg/dL before meals <180 mg/dL all other times of the day Blood specimen (specimen) 11/25/2016 7:42 AM EDT 11/25/2016 7:42 AM EDT Roque Sanches MD POINT OF CARE TEST O RDERABLES Performing Organization Address [facility] Co de Phone Number [facility] [place] [address] * EKG 12 Lead (11/25/2016 7:23 AM EDT) Ventricular rate 70 BPM MUSE SYSTEM Atrial Rate 70 BPM MUSE SYSTEM P-R Interval 140 ms MUSE SYSTEM QRS Duration 88 ms MUSE SYSTEM Q-T Interval 388 ms MUSE SYSTEM QTC Calculated (Bezet) 419 ms MUSE SYSTEM Calculated P [place] 3 degrees MUSE SYSTEM Calculated R [place] 19 degrees MUSE SYSTEM Calculated T [place] 42 degrees MUSE SYSTEM INTERPRETATION Normal sinus rhythm Normal ECG When compared with ECG of 24-NOV-2016 19:05, (unconfirmed) No significant change was found I personally reviewed the tracing and edited the fellows interpretation Confirmed by fellow MD Kalin, Nessa Lee ([id number]) on 11/25/2016 10:44:22 AM Confirmed by MD Meli, Tigre ([id number]) on 11/25/2016 5:24:33 PM MUSE SYSTEM 11/25/2016 7:23 AM EDT 11/25/2016 5:24 PM EDT Roque Sanches MD ECG ORDERABLES Performing Organization Address [facility] Co de Phone Number MUSE SYSTEM * Cardiac Enzymes (11/25/2016 4:52 AM EDT) Troponin-T <0.03 <=0.03 ng/mL [facility] Comment: 0.03 ng/mL: Represents the 99th percentile upper reference limit for normals. >0.03 ng/mL: Elevated cardiac troponin T level indicative of myocardial damage. Diagnosis of acute, evolving or recent MD requires a typical rise and gradual fall [...] consensus document of the Joint Society of Cardiology/[place] College of Cardiology Committee for the redefinition of myocardial infarction. ??Journal of the [place] College of Cardiology 2000; 36: 959-969] Creatine Kinase 139 0 - 200 unit/L [facility] Comment:result rechecked-sb Blood specimen (specimen) Venous Draw / Unknown 11/25/2016 4:52 AM EDT 11/25/2016 5:41 AM EDT Narrative Resulting Agency Comment Spec In Lab Roque Sanches MD CHEMISTRY ORDERABLES [facility] [place] [address] * Differential, Automated (11/25/2016 4:52 AM EDT) Neutrophil % 61.6 % [facility] Neutrophil Absolute 5.56 1.70 - 6.10 x10(3)/[facility] Lymph % 26.8 % [facility] Lymphocytes Abs 2.4 0.9 - 3.2 x10(3)/[facility] Monocyte % 6.3 % [facility] Monocyte Abs 0.6 0.3 - 0.9 x10(3)/[facility] Eos % 4.1 % [facility] Eosinophils Abs 0.4 0.0 - 0.4 x10(3)/[facility] Basophil % 0.8 % [facility] Baso Absolute 0.1 0.0 - 0.1 x10(3)/[facility] Immature Gran % 0.40 % [facility] Comment: Immature granulocytes(IG's)percentage and absolute count will include metamyelocytes, myelocytes, and promyelocytes. Blood smears from CBCs yielding IG's will be scanned manually for concordance. If this scan disagrees with the automated IG or if promyelocytes are noted, a manual differential will be performed. Immature Gran Absolute 0.04 0.00 - 0.04 x10(3)/[facility] Blood specimen (specimen) 11/25/2016 4:52 AM EDT 11/25/2016 5:37 AM EDT Narrative Resulting Agency Comment Spec In Lab Roque Sanches MD HEMATOLOGY ORDERABLE S [facility] [place] [address] * (ABNORMAL) Hemogram (11/25/2016 4:52 AM EDT) White Blood Cell 9.0 4.0 - 9.5 x10(3)/[facility] Red Blood Cell 5.04 4.58 - 5.54 x10(6)/[facility] Hemoglobin 14.5 13.7 - 16.5 gm/dL [facility] Hematocrit 44.2 40.5 - 48.5 % [facility] Mean Cell Volume 87.7 82.9 - 93.1 [facility] Mean Cell Hemoglobin 28.8 27.5 - 32.1 pg [facility] Mean Cell Hemoglobin Concentration 32.8 32.0 - 35.7 gm/dL [facility] Platelet 214 145 - 357 x10(3)/[facility] RDW Standard Deviation 45.1(H) 36.0 - 45.0 [facility] RDW coefficient of variation 14.0(H) 11.4 - 13.8 % [facility] Mean Platelet Volume 11.1 7.6 - 12.9 [facility] NRBC% auto 0.0 % [facility] NRBC Absolute 0.000 0.000 - 0.000 x10(3)/[facility] Blood specimen (specimen) 11/25/2016 4:52 AM EDT 11/25/2016 5:37 AM EDT Narrative Resulting Agency Comment Spec In Lab Roque Sanches MD HEMATOLOGY ORDERABLE S [facility] [place] [address] * (ABNORMAL) BMP w/fasting Glucose (11/25/2016 4:52 [...] of Diabetes Mellitus, Position Statement from the [place] Diabetes Association. ??Diabetes Care, Volume 33, Supplement [...] >60 >=60 [facility] Comment: This estimated GFR [...] the following links into your internet browser. [email or web address] Blood specimen (specimen) 11/25/2016 4:52 AM EDT 11/25/2016 5:37 AM EDT Narrative Resulting Agency Comment Spec In Lab Roque Sanches MD CHEMISTRY ORDERABLES Performing Organization Address [facility] Co de Phone Number [facility] [place] [phone] * EKG 12 Lead (11/24/2016 7:05 PM EDT) Ventricular rate 85 BPM MUSE SYSTEM Atrial Rate 85 BPM MUSE SYSTEM P-R Interval 152 ms MUSE SYSTEM QRS Duration 86 ms MUSE SYSTEM Q-T Interval 354 ms MUSE SYSTEM QTC Calculated (Bezet) 421 ms MUSE SYSTEM Calculated P [place] 55 degrees MUSE SYSTEM Calculated R [place] 44 degrees MUSE SYSTEM Calculated T [place] 40 degrees MUSE SYSTEM INTERPRETATION Normal sinus rhythm Normal ECG When compared with ECG of 24-NOV-2016 07:20, No significant change was found Confirmed by Wale Mckeon MD ([id number]) on 11/25/2016 4:12:17 PM MUSE SYSTEM 11/24/2016 7:05 PM EDT 11/25/2016 4:12 PM EDT Roque Sanches MD ECG ORDERABLES Performing Organization Address [facility] Co de Phone Number MUSE SYSTEM * CARDIAC CATHETERIZATION (11/24/2016 6:04 PM EDT) Anatomical Region Laterality Modality Other Narrative 11/24/2016 6:23 PM EDT ?[facility] ? Cardiac Catheterization/Intervention Report ? Patient Name: Romeo Coelho. ? Procedure Date: 11/24/2016 ? A #: [id number] ? Primary Physician: Alexandru, Anton T ? Case #: [id number] ? File Name: [id number] ? Catheterization Order Number: [id number] ? [facility] ? Final Report [place], [place] ? Patient Name: ? Romeo Coelho ? ID#: ?[id number] ? : ?1965 ? Procedure Date: ? November 24, 2016 ?Case #: ? [id number] ? Room: ? 6 ? Case Physician: [...] presented with: unstable angina (w/i 60 days). [place] ?Cardiovascular Society angina class was III. This [...] medical regimen was changed as ?follows: Continue moth exterminator aspirin and plavix. ? Comments: ?Classic [...] Procedure Note Anton Horvath MD - 11/25/2016 [facility] Cardiac Catheterization/Intervention Report Patient Name: Romeo Coelho Procedure Date: 11/24/2016 A #: [id number] Primary Physician: Anton Horvath Case #: [id number] File Name: [id number] Catheterization Order Number: [id number] [facility] FinalReport [place], [place] Patient Name: Romeo Coelho ID#:[id number] :1965 Procedure Date: November 24, 2016 Case [...] presented with: unstable angina (w/i 60 days). [place] Cardiovascular Society angina class was III. This [...] time was 8.0 minutes, dose area product [id number] mGYcm2 and air kerma was 1,689 mGY. [...] medical regimen was changed as follows: Continue fpc aspirin and plavix. Comments: Classic anginal symptoms refractory to medications. The attending physician was present for the entire procedure. Dr. Anton Horvath M.D. performed the coronary angiography, leftheart catheterization and stent insertion-coronary. Anton Horvath M.D. Electronically Signed by: Anton Horvath M.D. Report Finalized: 11/24/2016 18:17 Report Last Ammended: 11/25/2016 11:39 Anotn Horvath MD CARDIAC CATH ORDERAB LES * [...] O RDERABLES [facility] [place] [address] * POCT Glucose (11/24/2016 11:56 AM EDT) Glucose, POC 110 65 - 199 mg/dL [facility] Comment: Supplemental ranges: <140 mg/dL before meals <180 mg/dL all other times of the day Blood specimen (specimen) 11/24/2016 11:56 AM EDT 11/24/2016 11:56 AM EDT Roque Sanches MD POINT OF CARE TEST O RDERAAIRAM Performing Organization Address [facility] Co de Phone Number [facility] [place] [address] * POCT Glucose (11/24/2016 7:43 AM EDT) Glucose, POC 131 65 - 199 mg/dL [facility] Comment: Supplemental ranges: <140 mg/dL before meals <180 mg/dL all other times of the day Blood specimen (specimen) 11/24/2016 7:43 AM EDT 11/24/2016 7:43 AM EDT Roque Sanches MD POINT OF CARE TEST O RDERAAIRAM Performing Organization Address [facility] Co de Phone Number [facility] [place] [address] * EKG 12 Lead (11/24/2016 7:20 AM EDT) Ventricular rate 65 BPM MUSE SYSTEM Atrial Rate 65 BPM MUSE SYSTEM P-R Interval 158 ms MUSE SYSTEM QRS Duration 90 ms MUSE SYSTEM Q-T Interval 396 ms MUSE SYSTEM QTC Calculated (Bezet) 411 ms MUSE SYSTEM Calculated P [place] 51 degrees MUSE SYSTEM Calculated R [place] 26 degrees MUSE SYSTEM Calculated T [place] 24 degrees MUSE SYSTEM INTERPRETATION Normal sinus rhythm Normal ECG When compared with ECG of 23-NOV-2016 07:16, No significant change was found I personally reviewed the tracing and edited the fellows interpretation Confirmed by fellow MD Kalin, Nessa Lee ([id number]) on 11/24/2016 8:23:27 AM Confirmed by MD Margoth, Rajni ([id number]) on 11/24/2016 6:22:34 PM MUSE SYSTEM 11/24/2016 7:20 AM EDT 11/24/2016 6:22 PM EDT Roque Sanches MD ECG ORDERABLES Performing Organization Address [facility] Co de Phone Number MUSE SYSTEM * (ABNORMAL) Differential, Automated (11/24/2016 6:20 AM EDT) Neutrophil % 54.5 % [facility] Neutrophil Absolute 4.85 1.70 - 6.10 x10(3)/[facility] LAB[facility] Lymph % 31.5 % [facility] Lymphocytes Abs 2.8 0.9 - 3.2 x10(3)/[facility] Monocyte % 8.1 % [facility] Monocyte Abs 0.7 0.3 - 0.9 x10(3)/[facility] Eos % 4.4 % [facility] Eosinophils Abs 0.4 0.0 - 0.4 x10(3)/[facility] Basophil % 0.9 % [facility] Baso Absolute 0.1 0.0 - 0.1 x10(3)/[facility] Immature Gran % 0.60 % [facility] Comment: Immature granulocytes(IG's)percentage and absolute count will include metamyelocytes, myelocytes, and promyelocytes. Blood smears from CBCs yielding IG's will be scanned manually for concordance. If this scan disagrees with the automated IG or if promyelocytes are noted, a manual differential will be performed. Immature Gran Absolute 0.05(H) 0.00 - 0.04 x10(3)/[facility] LABORATORY Blood specimen (specimen) 11/24/2016 6:20 AM EDT 11/24/2016 6:34 AM EDT Narrative Resulting Agency Comment Spec In Lab Drew Pepe MD HEMATOLOGY ORDERABLE S [facility] [place] [address] * (ABNORMAL) Hemogram (11/24/2016 6:20 AM EDT) White Blood Cell 8.9 4.0 - 9.5 x10(3)/[facility] LABORATORY Red Blood Cell 4.93 4.58 - 5.54 x10(6)/[facility] LABORATORY Hemoglobin 14.7 13.7 - 16.5 gm/dL [...] [facility] NRBC% auto 0.0 % [facility] LABORATORY NRBC Absolute 0.000 0.000 - 0.000 x10(3)/mc L [facility]OR[facility]ORY Blood specimen (specimen) 11/24/2016 6:20 AM EDT 11/24/2016 6:34 AM EDT Narrative Resulting Agency Comment Spec In Lab Drew Pepe MD HEMATOLOGY ORDERABLE S [facility] [place] [address] * (ABNORMAL) APTT (11/24/2016 6:20 AM EDT) [facility] Partial Thromboplastin Time 110(H) 25 - 35 sec [facility] Comment: The recommended therapeutic range for full dose, unfractionated heparin at [facility] is 80 ? 114 seconds. The use of the anti-Xa (heparin) level rather than the PTT is recommended for monitoring anticoagulation intensity in critically ill patients receiving unfractionated heparin by continuous IV infusion. Blood specimen (specimen) 11/24/2016 6:20 AM EDT 11/24/2016 6:34 AM EDT Narrative Resulting Agency Comment Spec In Lab Drew Pepe MD HEMATOLOGY ORDERABLE S Performing Organization Address [facility] Co de Phone Number [facility] [place] [address] * (ABNORMAL) APTT (11/23/2016 11:27 PM EDT) Partial Thromboplastin Time 130(H) 25 - 35 sec [facility] Comment: The recommended therapeutic range for full dose, unfractionated heparin at [facility] is 80 ? 114 seconds. The use of the anti-Xa (heparin) level rather than the PTT is recommended for monitoring anticoagulation intensity in critically ill patients receiving unfractionated heparin by continuous IV infusion. Blood specimen (specimen) 11/23/2016 11:27 PM EDT 11/23/2016 11:30 PM EDT Narrative Resulting Agency Comment Spec In Lab Drwe Pepe MD HEMATOLOGY ORDERABLE S Performing Organization Address [facility] Co de Phone Number [facility] [place] [address] * POCT Glucose (11/23/2016 7:36 PM EDT) Glucose, POC 131 65 - 199 mg/dL [facility] Comment: Supplemental ranges: <140 mg/dL before meals <180 mg/dL all other times of the day Blood specimen (specimen) 11/23/2016 7:36 PM EDT 11/23/2016 7:36 PM EDT Roque Sanches MD POINT OF CARE TEST O RDERABLES Performing Organization Address [facility]/ZIP Co de Phone Number [facility] [place] [address] * POCT Glucose (11/23/2016 5:20 PM EDT) Glucose, POC 107 65 - 199 mg/dL [facility] Comment: Supplemental ranges: <140 mg/dL before meals <180 mg/dL all other times of the day Blood specimen (specimen) 11/23/2016 5:20 PM EDT 11/23/2016 5:20 PM EDT Roque Sanches MD POINT OF CARE TEST O EVITA Performing Organization Address [facility] Co de Phone Number [facility] [place] [address] * (ABNORMAL) APTT (11/23/2016 12:39 PM EDT) Partial Thromboplastin Time 68(H) 25 - 35 sec [facility] Comment: The recommended therapeutic range for full dose, unfractionated heparin at [facility] is 80 ? 114 seconds. The use of the anti-Xa (heparin) level rather than the PTT is recommended for monitoring anticoagulation intensity in critically ill patients receiving unfractionated heparin by continuous IV infusion. Blood specimen (specimen) 11/23/2016 12:39 PM EDT 11/23/2016 12:51 PM EDT Narrative Resulting Agency Comment Spec In Lab Roque Sanches MD HEMATOLOGY ORDERABLE S Performing Organization Address [facility] de Phone Number [facility] [place] [address] * POCT Glucose (11/23/2016 11:47 AM EDT) Glucose, POC 116 65 - 199 mg/dL [facility] Comment: Supplemental ranges: <140 mg/dL before meals <180 mg/dL all other times of the day Blood specimen (specimen) 11/23/2016 11:47 AM EDT 11/23/2016 11:47 AM EDT Roque Sanches MD POINT OF CARE TEST O EVITA Performing Organization Address [facility] Co de Phone Number [facility] [place] [address] * POCT Glucose (11/23/2016 7:36 AM EDT) Glucose, POC 122 65 - 199 mg/dL [facility] Comment: Supplemental ranges: <140 mg/dL before meals <180 mg/dL all other times of the day Blood specimen (specimen) 11/23/2016 7:36 AM EDT 11/23/2016 7:36 AM EDT Roque Sanches MD POINT OF CARE TEST O RDERABLES Performing Organization Address [facility] de Phone Number [facility] [place] [address] * EKG 12 Lead (11/23/2016 7:16 AM EDT) Ventricular rate 72 BPM MUSE SYSTEM Atrial Rate 72 BPM MUSE SYSTEM P-R Interval 158 ms MUSE SYSTEM QRS Duration 90 ms MUSE SYSTEM Q-T Interval 382 ms MUSE SYSTEM QTC Calculated (Bezet) 418 ms MUSE SYSTEM Calculated P [place] 47 degrees MUSE SYSTEM Calculated R [place] 28 degrees MUSE SYSTEM Calculated T [place] 32 degrees MUSE SYSTEM INTERPRETATION Normal sinus rhythm Normal ECG When compared with ECG of 22-NOV-2016 07:12, No significant change was found Confirmed by MD ANIVAL, DEBORAH ([id number]) on 11/23/2016 1:58:05 PM MUSE SYSTEM 11/23/2016 7:16 AM EDT 11/23/2016 1:58 PM EDT Roque Sanches MD ECG ORDERABLES Performing Organization Address [facility] de Phone [...] of Diabetes Mellitus, Position Statement from the [place] [employer]. ??Diabetes Care, Volume 33, Supplement [...] >60 >=60 [facility] Comment: This estimated GFR [...] the following links into your internet browser. [email or web address] Blood specimen (specimen) 11/23/2016 6:24 AM EDT 11/23/2016 6:32 AM EDT Narrative Resulting Agency Comment Spec In Lab Roque Sanches MD CHEMISTRY ORDERABLES Performing Organization Address City/[facility]/ZIP Co de Phone Number [facility] [place] [address] * (ABNORMAL) APTT (11/23/2016 6:24 AM EDT) [facility] Partial Thromboplastin Time 103(H) 25 - 35 sec [facility] Comment: The recommended therapeutic range for full dose, unfractionated heparin at [facility] is 80 ? 114 seconds. The use of the anti-Xa (heparin) level rather than the PTT is recommended for monitoring anticoagulation intensity in critically ill patients receiving unfractionated heparin by continuous IV infusion. Blood specimen (specimen) 11/23/2016 6:24 AM EDT 11/23/2016 6:32 AM EDT Narrative Resulting Agency Comment Spec In Lab Drew Pepe MD HEMATOLOGY ORDERABLE S Performing Organization Address [facility]/ZIP Co de Phone Number [facility] [place] [address] * Differential, Automated (11/23/2016 6:24 AM EDT) [facility] Neutrophil % 58.2 % [facility] LABORATORY Neutrophil Absolute 4.63 1.70 - 6.10 x10(3)/[facility] LABORATORY Lymph % 29.0 % [facility] LABOR[facility]ORY Lymphocytes Abs 2.3 0.9 - 3.2 x10(3)/[facility] LABORATORY Monocyte % 7.3 % [facility] LABOR[facility]ORY Monocyte Abs 0.6 0.3 - 0.9 x10(3)/[facility] LABORATORY Eos % 4.1 % [facility] LAB[facility]ORY Eosinophils Abs 0.3 0.0 - 0.4 x10(3)/[facility] LABORATORY Basophil % 1.0 % [facility] LAB[facility] Baso Absolute 0.1 0.0 - 0.1 x10(3)/[facility] LABORATORY Immature Gran % 0.40 % [facility] [...] ORDERABLE S [facility] [place] [address] * (ABNORMAL) Hemogram (11/23/2016 6:24 AM EDT) [...] RDW Standard Deviation 44.5 36.0 - 45.0 [facility] LABORATORY RDW coefficient of variation 14.0(H) 11.4 - 13.8 % [facility] Mean Platelet Volume 10.4 7.6 - 12.9 fL [facility] NRBC% auto 0.0 % [facility] NRBC Absolute 0.000 0.000 - 0.000 x10(3)/mc L [facility] Blood specimen (specimen) 11/23/2016 6:24 AM EDT 11/23/2016 6:32 AM EDT Narrative Resulting Agency Comment Spec In Lab Drew Pepe MD HEMATOLOGY ORDERABLE S Performing Organization Address [facility]/ZIP Co de Phone Number [facility] [place] [address] * (ABNORMAL) APTT (11/23/2016 12:03 AM EDT) Partial Thromboplastin Time 116(H) 25 - 35 sec [facility] Comment: The recommended therapeutic range for full dose, unfractionated heparin at [facility] is 80 ? 114 seconds. The use of the anti-Xa (heparin) level rather than the PTT is recommended for monitoring anticoagulation intensity in critically ill patients receiving unfractionated heparin by continuous IV infusion. Blood specimen (specimen) 11/23/2016 12:03 AM EDT 11/23/2016 12:07 AM EDT Narrative Resulting Agency Comment Spec In Lab Drew Pepe MD HEMATOLOGY ORDERABLE S Performing Organization Address [facility] Co de Phone Number [facility] [place] [address] * POCT Glucose (11/22/2016 7:45 PM EDT) Glucose, POC 102 65 - 199 mg/dL [facility] Comment: Supplemental ranges: <140 mg/dL before meals <180 mg/dL all other times of the day Blood specimen (specimen) 11/22/2016 7:45 PM EDT 11/22/2016 7:45 PM EDT Roque Sanches MD POINT OF CARE TEST O RDERABLES Performing Organization Address [facility] Co de Phone Number [facility] [place] [address] * Cardiac Enzymes (11/22/2016 5:11 PM EDT) [facility] Troponin-T <0.03 <=0.03 ng/mL [facility] Comment: 0.03 ng/mL: Represents the 99th percentile upper reference limit for normals. >0.03 ng/mL: Elevated cardiac troponin T level indicative of myocardial damage. Diagnosis of acute, evolving or recent MD requires a typical rise and gradual fall [...] consensus document of the Joint Society of Cardiology/[place] [employer] Committee for the redefinition of myocardial infarction. ??Journal of the [place] College [employer] 2000; 36: 959-969] Creatine Kinase 46 0 - 200 unit/L [facility] Blood specimen (specimen) 11/22/2016 5:11 PM EDT 11/22/2016 5:15 PM EDT Narrative Resulting Agency Comment Spec In Lab Roque Sanches MD CHEMISTRY ORDERABLES [facility] [place] [address] * (ABNORMAL) APTT (11/22/2016 5:11 PM EDT) [facility] Partial Thromboplastin Time 76(H) 25 - 35 sec [facility] Comment: The recommended therapeutic range for full dose, unfractionated heparin at [facility] is 80 ? 114 seconds. The use of the anti-Xa (heparin) level rather than the PTT is recommended for monitoring anticoagulation intensity in critically ill patients receiving unfractionated heparin by continuous IV infusion. Blood specimen (specimen) 11/22/2016 5:11 PM EDT 11/22/2016 5:15 PM EDT Narrative Resulting Agency Comment Spec In Lab Drew Pepe MD HEMATOLOGY ORDERABLE S Performing Organization Address [facility] Co de Phone Number [facility] [place] [address] * POCT Glucose (11/22/2016 4:50 PM EDT) Glucose, POC 100 65 - 199 mg/dL [facility] Comment: Supplemental ranges: <140 mg/dL before meals <180 mg/dL all other times of the day Blood specimen (specimen) 11/22/2016 4:50 PM EDT 11/22/2016 4:50 PM EDT Roque Sanches MD POINT OF CARE TEST O RDERABLES Performing Organization Address [facility] Co de Phone Number [facility] [place] [address] * ECHO COMPLETE W CONTRAST (11/22/2016 12:59 PM EDT) EF 60 HEARTLAB SYSTEM Anatomical Region Laterality Modality Other 11/22/2016 Narrative 11/22/2016 1:38 PM EDT Procedure: ?Transthoracic Echocardiogram Patient: ?COELHOCOLE DOHERTY A ? (Age): 1965(51y) Med Rec#: ? [id number] ?Sex: ?M ? Site Loc: ? [facility] ?Ht / Wt: ??178(cm)/95(kg) Pt. Loc: ?Adult Floor ? BSA: ?2.13 Study Date: ?? 11/22/2016 ?Pt. Type: Inpatient Tape: ? Referring: Roque Sanches ([id number]) Reading: Roque Sanches ([id number]) Stained Glass Joiner: Jorge A Street Diagnosis: *ICD-10-PCS Unstable angina (I20.0) CPT Codes: *Echo Full (62031) *Spectral Doppler (89760) *Color Doppler (61086) *Optison ([id number]) Rhythm: ? Sinus BP: ? 113/70 SUMMARY: [...] E-wave Vmax ?0.5 ?m/sec ? MV deceleration [id number] ?msec ? MV A-wave Vmax ?0.4 ?m/sec [...] ? Mid-Inferior ?Normal ? Mid-Inferoseptal ?Normal ? [place]-Septal ? Normal ? [place]-Anterior ? Normal ? [place]-Lateral ?Normal ? [place]-Inferior ? Normal ? [place]-Tip ?Normal ? This report has been electronically signed by: Roque Sanches M.D. ? 11/22/2016 13:38:29 Images reviewed and interpretation verified [facility] Cardiac Ultrasound Laboratory Procedure Note Roque Sanches MD - 11/22/2016 Procedure: Transthoracic Echocardiogram Patient: LAQUITA HARRIS(Age): 1965(51y) Med Rec#: [id number] Sex: M Site Loc: [facility] Ht / Wt: 178(cm)/95(kg) Pt. Loc: Adult Floor BSA: 2.13 Study Date: 11/22/2016 Pt. Type: Inpatient Tape: Referring: Roque Sanches ([id number]) Reading: Roque Sanches () Stained Glass Joiner: Jorge A Street Diagnosis: *ICD-10-PCS Unstable angina (I20.0) CPT Codes: *Echo Full (75898) *Spectral Doppler (80362) *Color Doppler (72651) *Optison ([id number]) Rhythm: Sinus BP: 113/70 SUMMARY: 1. The [...] MV E-wave Vmax 0.5 m/sec MV deceleration [id number] msec MV A-wave Vmax 0.4 m/sec MV [...] Hypokinetic Mid-Posterolateral Hypokinetic Mid-Inferior Normal Mid-Inferoseptal Normal [place]-Septal Normal [place]-Anterior Normal [place]-Lateral Normal [place]-Inferior Normal [place]-Tip Normal This report has been electronically signed by: Roque Sanches M.D. 11/22/2016 13:38:29 Images reviewed and interpretation verified [facility] Cardiac Ultrasound Laboratory Drew Pepe MD [...] O RDERABLES [facility] [place] [address] * Potassium (11/22/2016 10:06 AM EDT) Potassium [...] CHEMISTRY ORDERABLES [facility] [place] [address] * Cardiac Enzymes (11/22/2016 10:06 AM EDT) Pathologist [facility] Troponin-T <0.03 <=0.03 ng/mL [facility] Comment: 0.03 ng/mL: Represents the 99th percentile upper reference limit for normals. >0.03 ng/mL: Elevated cardiac troponin T level indicative of myocardial damage. Diagnosis of acute, evolving or recent MD requires a typical rise and gradual fall [...] consensus document of the Joint Society of Cardiology/[place] [employer] Committee for the redefinition of myocardial infarction. ??Journal of the [place] College [employer]iology 2000; 36: 959-969] Creatine Kinase 48 0 - 200 unit/L [facility] Blood specimen (specimen) 11/22/2016 10:06 AM EDT 11/22/2016 10:16 AM EDT Narrative Resulting Agency Comment Spec In Lab Drew Pepe MD CHEMISTRY ORDERABLES Performing Organization Address City/[facility]/ZIP Co de Phone Number [facility] [place] [address] * (ABNORMAL) APTT (11/22/2016 10:06 AM EDT) [facility] Signature Partial Thromboplastin Time 104(H) 25 - 35 sec [facility] Comment: The recommended therapeutic range for full dose, unfractionated heparin at [facility] is 80 ? 114 seconds. The use of the anti-Xa (heparin) level rather than the PTT is recommended for monitoring anticoagulation intensity in critically ill patients receiving unfractionated heparin by continuous IV infusion. Blood specimen (specimen) 11/22/2016 10:06 AM EDT 11/22/2016 10:16 AM EDT Narrative Resulting Agency Comment Spec In Lab Roque Sanches MD HEMATOLOGY ORDERABLE S Performing Organization Address [facility]/ZIP Co de Phone Number [facility] [place] [address] * XR Chest PA & Lateral (Generic) [...] Performing Organization Address [facility] Co de Phone Number [facility] [place] [place] [address] * EKG 12 Lead (11/22/2016 7:12 AM EDT) Ventricular rate 74 BPM MUSE SYSTEM Atrial Rate 74 BPM MUSE SYSTEM P-R Interval 146 ms MUSE SYSTEM QRS Duration 92 ms MUSE SYSTEM Q-T Interval 382 ms MUSE SYSTEM QTC Calculated (Bezet) 424 ms MUSE SYSTEM Calculated P [place] 34 degrees MUSE SYSTEM Calculated R [place] 26 degrees MUSE SYSTEM Calculated T [place] 27 degrees MUSE SYSTEM INTERPRETATION Normal sinus rhythm Normal ECG When compared with ECG of 21-NOV-2016 20:34, (unconfirmed) No significant change was found Confirmed by MD Anton, Asif (57) on 11/22/2016 10:51:21 AM MUSE SYSTEM 11/22/2016 7:12 AM EDT 11/22/2016 10:51 AM EDT Roque Sanches MD ECG ORDERABLES Performing Organization Address City/[facility]/ZIP [...] greater than or equal to 190 mg/dL. http://circ.ahajournals.org/content/early/.cir.1427193598.69472.7a Adults aged 40-75 with LDL 70-189 mg/dL should have their 10 year ASCVD risk estimated with the ACC/AHA ASCVD risk cotton stomper http://tools.acc.org/XKBEK-Zqac-Isypjkouw/ Statin should be discussed if risk greater [...] CHEMISTRY ORDERABLES [facility] [place] [address] * Cardiac Enzymes (11/22/2016 3:58 AM EDT) Troponin-T <0.03 <=0.03 ng/mL [facility] Comment: 0.03 ng/mL: Represents the 99th percentile upper reference limit for normals. >0.03 ng/mL: Elevated cardiac troponin T level indicative of myocardial damage. Diagnosis of acute, evolving or recent MD requires a typical rise and gradual fall [...] consensus document of the Joint Society of Cardiology/[place] [employer] Committee for the redefinition of myocardial infarction. ??Journal of the [place] College of [employer]iology 2000; 36: 959-969] Creatine Kinase 50 0 - 200 unit/L [facility] Blood specimen (specimen) Venous Draw / Unknown 11/22/2016 3:58 AM EDT 11/22/2016 4:13 AM EDT Narrative Resulting Agency Comment Spec In Lab Roque Sanches MD CHEMISTRY ORDERABLES Performing Organization Address City/State/[facility] Co de Phone Number [facility] [place] [phone] * Differential, Automated (11/22/2016 3:58 AM EDT) Neutrophil % 56.6 % [facility] LAB[facility] Neutrophil Absolute 4.86 1.70 - 6.10 x10(3)/[facility] LABORATORY Lymph % 30.3 % [facility] Lymphocytes Abs 2.6 0.9 - 3.2 x10(3)/[facility] LABORATORY Monocyte % 7.7 % [facility] LAB[facility]AT[facility] Monocyte Abs 0.7 0.3 - 0.9 x10(3)/[facility] LABORATORY Eos % 4.5 % [facility] Eosinophils Abs 0.4 0.0 - 0.4 x10(3)/[facility] LABORATORY Basophil % 0.6 % [facility] Baso Absolute 0.0 0.0 - 0.1 x10(3)/[facility] LABORATORY Immature Gran % 0.30 % [facility] [...] ORDERABLE S [facility] [place] [address] * (ABNORMAL) Hemogram (11/22/2016 3:58 AM EDT) [...] [facility] NRBC% auto 0.0 % [facility] NRBC Absolute 0.000 0.000 - 0.000 x10(3)/mc L [facility] Blood specimen (specimen) 11/22/2016 3:58 AM EDT 11/22/2016 4:13 AM EDT Narrative Resulting Agency Comment Spec In Lab Roque Sanches MD HEMATOLOGY ORDERABLE S [facility] [place] [address] * (ABNORMAL) BMP w/fasting Glucose (11/22/2016 3:58 [...] of Diabetes Mellitus, Position Statement from the [place] [employer]. ??Diabetes Care, Volume 33, Supplement [...] >60 >=60 [facility] Comment: This estimated GFR [...] the following links into your internet browser. [email or web address] Blood specimen (specimen) 11/22/2016 3:58 AM EDT 11/22/2016 4:13 AM EDT Narrative Resulting Agency Comment Spec In Lab Roque Sanches MD CHEMISTRY ORDERABLES [facility] [place] [address] * (ABNORMAL) APTT (11/22/2016 3:58 AM EDT) [facility] Partial Thromboplastin Time 44(H) 25 - 35 sec [facility] Comment: The recommended therapeutic range for full dose, unfractionated heparin at [facility] is 80 ? 114 seconds. The use of the anti-Xa (heparin) level rather than the PTT is recommended for monitoring anticoagulation intensity in critically ill patients receiving unfractionated heparin by continuous IV infusion. Blood specimen (specimen) 11/22/2016 3:58 AM EDT 11/22/2016 4:13 AM EDT Narrative Resulting Agency Comment Spec In Lab Drew Pepe MD HEMATOLOGY ORDERABLE S Performing Organization Address [facility] Co de Phone Number [facility] [place] [address] * EKG 12 Lead (11/21/2016 8:34 PM EDT) Ventricular rate 72 BPM MUSE SYSTEM Atrial Rate 72 BPM MUSE SYSTEM P-R Interval 138 ms MUSE SYSTEM QRS Duration 86 ms MUSE SYSTEM Q-T Interval 382 ms MUSE SYSTEM QTC Calculated (Bezet) 418 ms MUSE SYSTEM Calculated P [place] -2 degrees MUSE SYSTEM Calculated R [place] 16 degrees MUSE SYSTEM Calculated T [place] 16 degrees MUSE SYSTEM INTERPRETATION Normal sinus rhythm Normal ECG When compared with ECG of 30-JUL-2013 08:41, No significant change was found Confirmed by MD Anton, Asif ([id number]) on 11/22/2016 10:49:32 AM MUSE SYSTEM 11/21/2016 8:34 PM EDT 11/22/2016 10:49 AM EDT Drew Pepe MD ECG ORDERABLES Performing Organization Address [facility] Center/[facility] Co de Phone Number MUSE SYSTEM [...] Mellitus, Diabetes Care 2013; 36: Suppl. 1, E65-70 Estimated Average Glucose 114 mg/dL [facility] [...] resources are available on the ADA website: [email or web address].RIISnet/[email or web address] Ashok PIMENTEL, Abdulkadir J, Jamie R, et al. ??Translating the A1C assay into estimated average glucose values. ??Diabetes Care 2008:31(8):2816-7468. Blood specimen (specimen) Venous Draw / Unknown 11/21/2016 8:32 PM EDT 11/22/2016 12:39 AM EDT Narrative Resulting Agency Comment Spec In Lab Drew Pepe MD CHEMISTRY ORDERABLES Performing Organization Address [facility] Co de Phone Number [facility] [place] [address] * TSH (11/21/2016 8:32 PM EDT) Thyroid Stimulating Hormone 2.29 0.27 - 4.20 mcIU/mL [facility] Blood specimen (specimen) Venous Draw / Unknown 11/21/2016 8:32 PM EDT 11/21/2016 8:40 PM EDT Narrative Resulting Agency Comment Spec In Lab Drew Pepe MD CHEMISTRY ORDERABLES Performing Organization Address [facility] Co de Phone Number [facility] [place] [address] * (ABNORMAL) Differential, Automated (11/21/2016 8:32 PM EDT) Neutrophil % 38.3 % [facility] Neutrophil Absolute 3.02 1.70 - 6.10 x10(3)/[facility] LABOR[facility] Lymph % 48.7 % [facility] Lymphocytes Abs 3.8(H) 0.9 - 3.2 x10(3)/[facility] LABORATORY Monocyte % 7.3 % [facility] Monocyte Abs 0.6 0.3 - 0.9 x10(3)/[facility] LABOR[facility]ORY Eos % 4.4 % [facility] Eosinophils Abs 0.4 0.0 - 0.4 x10(3)/[facility] LABOR[facility]ORY Basophil % 0.9 % [facility] Baso Absolute 0.1 0.0 - 0.1 x10(3)/[facility] LABOR[facility]ORY Immature Gran % 0.40 % [facility] Comment: Immature granulocytes(IG's)percentage and absolute count will include metamyelocytes, myelocytes, and promyelocytes. Blood smears from CBCs yielding IG's will be scanned manually for concordance. If this scan disagrees with the automated IG or if promyelocytes are noted, a manual differential will be performed. Immature Gran Absolute 0.03 0.00 - 0.04 x10(3)/[facility] LABOR[facility]ORY Blood specimen (specimen) 11/21/2016 8:32 PM EDT 11/21/2016 8:37 PM EDT Narrative Resulting Agency Comment Spec In Lab Drew Pepe MD HEMATOLOGY ORDERABLE S [facility] [place] [address] * Hemogram (11/21/2016 8:32 PM EDT) White Blood Cell 7.9 4.0 - 9.5 x10(3)/[facility] LABORATORY Red Blood Cell 4.64 4.58 - 5.54 x10(6)/[facility] LABORATORY Hemoglobin 13.9 13.7 - 16.5 [...] HOSPITAL LABORATORY Platelet 179 145 - 357 x10(3)/[facility] LABORATORY RDW Standard Deviation 44.3 36.0 - 45.0 fL [facility] RDW coefficient of variation 13.8 11.4 - 13.8 % [facility] Mean Platelet Volume 10.8 7.6 - 12.9 fL [facility] NRBC% auto 0.0 % [facility] NRBC Absolute 0.000 0.000 - 0.000 x10(3)/[facility] LABORATORY Blood specimen (specimen) 11/21/2016 8:32 PM EDT 11/21/2016 8:37 PM EDT Narrative Resulting Agency Comment Spec In Lab Drew Pepe MD HEMATOLOGY ORDERABLE S [facility] [place] [address] * Cardiac Enzymes (11/21/2016 8:32 PM EDT) Troponin-T <0.03 <=0.03 ng/mL [facility] Comment: 0.03 ng/mL: Represents the 99th percentile upper reference limit for normals. >0.03 ng/mL: Elevated cardiac troponin T level indicative of myocardial damage. Diagnosis of acute, evolving or recent MD requires a typical rise and gradual fall [...] consensus document of the Joint Society of Cardiology/[place] College [employer] Cardiology Committee for the redefinition of myocardial infarction. ??Journal of the [place] College of [employer]iology 2000; 36: 959-969] Creatine Kinase 64 0 - 200 unit/L [facility] Blood specimen (specimen) 11/21/2016 8:32 PM EDT 11/21/2016 8:37 PM EDT Narrative Resulting Agency Comment Spec In Lab Drew Pepe MD CHEMISTRY ORDERABLES Performing Organization Address [facility] Co de Phone Number [facility] [place] [address] * APTT (11/21/2016 8:32 PM EDT) Partial Thromboplastin Time 32 25 - 35 sec [facility] Comment: The recommended therapeutic range for full dose, unfractionated heparin at [facility] is 80 ? 114 seconds. The use of the anti-Xa (heparin) level rather than the PTT is recommended for monitoring anticoagulation intensity in critically ill patients receiving unfractionated heparin by continuous IV infusion. Blood specimen (specimen) 11/21/2016 8:32 PM EDT 11/21/2016 8:37 PM EDT Narrative Resulting Agency Comment Spec In Lab Drew Pepe MD HEMATOLOGY ORDERABLE S Performing Organization Address [facility] Co de Phone Number [facility] [place] [address] * Prothrombin Time (11/21/2016 8:32 PM EDT) [...] ORDERABLE S [facility] [place] [address] * Hepatic Function Panel (11/21/2016 8:32 PM EDT) Pathologist [facility] Protein, Total 6.8 6.1 - 8.0 gm/dL [...] CHEMISTRY ORDERABLES [facility] [place] [address] * (ABNORMAL) Basic Metabolic Panel (non-fasting) (11/21/2016 [...] >60 >=60 [facility] Comment: This estimated GFR [...] the following links into your internet browser. [email or web address] Blood specimen (specimen) 11/21/2016 8:32 PM EDT 11/21/2016 8:37 PM EDT Narrative Resulting Agency Comment Spec In Lab Drew Pepe MD CHEMISTRY ORDERABLES [facility] [place] [address] * pro-Brain Natriuretic Peptide (11/21/2016 8:32 PM EDT) NT-proBNP 65 <=125 pg/mL [facility] Blood specimen (specimen) 11/21/2016 8:32 PM EDT 11/21/2016 8:37 PM EDT Narrative Resulting Agency Comment Spec In Lab Drew Pepe MD CHEMISTRY ORDERABLES [facility] [place] [address] * POCT Glucose (11/21/2016 8:12 PM EDT) Glucose, POC 80 65 - 199 mg/dL [facility] Comment: Supplemental ranges: <140 mg/dL before meals <180 mg/dL all other times of the day Blood specimen (specimen) 11/21/2016 8:12 PM EDT 11/21/2016 8:12 PM EDT Valentín Oreilly MD POINT OF CARE TEST ORDERABLES [facility] [place] [address] documented in this encounter Visit Diagnoses Not [...] 0814 (Given - Provider: Esha Chen RN)1811 ([facility] Hold - Provider: Admin [...] 0815 (Given - Provider: Esha Chen RN)1811 ([facility] Hold - Provider: Admin Adt - Reason: Transfer to a Procedural area)1940 ([facility] Unhold - Provider: Admin Adt) 0858 (Given - Provider: Venancio Bourgeois RN) losartan (COZAAR) tablet 12.5 mg 12.5 mg, Oral, DAILY, First dose on 11/22/16 at 0900, Until Discontinued, Routine 0807 (Given - Provider: Esha Chen RN) 0816 (Given - Provider: Esha Chen RN)1811 ([facility] Hold - Provider: Admin Adt - Reason: Transfer to a Procedural area)1940 ([facility] Unhold - Provider: Admin Adt) 0857 [...] 0816 (Given - Provider: Esha Chen RN)1811 ([facility] Hold - Provider: Admin Adt - Reason: Transfer to a Procedural area)1940 ([facility] Unhold - Provider: Admin Adt)2107 (Given - Provider: Venice Huffman RN) 09 (Given - Provider: Venancio Bourgeois RN) pantoprazole (PROTONIX) tablet 40 mg 40 mg, Oral, DAILY, First dose on 11/22/16 at 0900, Until Discontinued, DO NOT CRUSH OR OPEN, Routine 0808 (Given - Provider: Esha Chen RN) 0816 (Given - Provider: Esha Chen RN)1811 ([facility] Hold - Provider: Admin Adt - Reason: Transfer to a Procedural area)1940 ([facility] Unhold - Provider: Admin Adt) 900 (Given - Provider: Venancio Bourgeois, RN) pramipexole (MIRAPEX) tablet 0.5 mg 0.5 mg, Oral, NIGHTLY, First dose on 11/22/16 at 0030, Until Discontinued, Routine 2058 (Given - Provider: Christy Medina, VERO) 1811 ([facility] Hold - Provider: Admin Adt - Reason: Transfer to a Procedural area)1940 ([facility] Unhold - Provider: Admin Adt)2107 (Given [...] 08 (Given - Provider: Esha Chen RN)1811 ([facility] Hold - Provider: Admin Adt - Reason: Transfer to a Procedural area)1940 ([facility] Unhold - Provider: Admin Adt)2107 (Given [...] See comment - Comment: IV flds infusing)1811 ([facility] Hold - Provider: Admin Adt - Reason: Transfer to a Procedural area)1940 ([facility] Unhold - Provider: Admin Adt)2111 (Given [...] (Given - Provider: Esha Chen RN) 1811 ([facility] Hold - Provider: Admin Adt - Reason: Transfer to a Procedural area)1940 ([facility] Unhold - Provider: Admin Adt) heparin [...] for discomfort with PIV insertion, Routine 1811 ([facility] Hold - Provider: Admin Adt - Reason: Transfer to a Procedural area)1940 ([facility] Unhold - Provider: Admin [...] last 24 to 72 hours., Routine 1811 ([facility] Hold - Provider: Admin Adt - Reason: Transfer to a Procedural area)1940 ([facility] Unhold - Provider: Admin [...] back pain, Routine 1617 (Given - Provider: sEha Chen RN) 1811 ([facility] Hold - Provider: Admin Adt - Reason: Transfer to a Procedural area)1940 ([facility] Unhold - Provider: Admin Adt) sodium chloride 0.9 % flush 5-20 mL 5-20 mL, Intravenous, EVERY 1 MIN PRN, Starting on 11/22/16 at 0013, Until Tu11/25/16 at 1305, flush, Flush pertains to all indwelling lines. Flush per protocol found in the job aid using the link provided on this medication record., Routine 1811 ([facility] Hold - Provider: Admin Adt - Reason: Transfer to a Procedural area)1940 ([facility] Unhold - Provider: Admin Adt) sodium chloride 0.9 % flush 5-20 mL 5-20 mL, Intravenous, EVERY 1 MIN PRN, Starting on Thu11/21/16 at 2010, Until Tu11/25/16 at 1305, flush, Flush pertains to all indwelling lines. Flush per protocol found in the job aid using the link provided on this medication record., Routine 1811 ([facility] Hold - Provider: Admin Adt - Reason: Transfer to a Procedural area)1940 ([facility] Unhold - Provider: Admin [...] Routine documented in this encounter Care Teams Geological Engineering Teacher Relationship Specialty Start Date End Date Coni Lim MD [address] [place] [address] PCP - General 07/16/10 documented as of this encounter
--- OUTSIDE RECORDS SUMMARY | 2024-08-19 14:55 | XMS_ITS | Encounter Summary ---
Author Organization [place] [address] Care Team Providers Care Shoelace Tipping Machine Operator Name Role Phone Coni Lim MD Primary Care Provider [phone] Encounter Details Date Type Department Care Team (Late st Contact Info) Description 07/27/2014 Orders Only Cardiology at [address] [phone] Oneil Newsome RN Research exam (Primary Dx) [...] trial documented in this encounter Care Teams Shoelace Tipping Machine Operator Relationship Specialty Start Date End Date Coni Lim MD [address] [place] [address] PCP - General 07/16/10 documented as of this encounter
--- OUTSIDE RECORDS SUMMARY | 2024-08-19 14:55 | XMS_ITS | Encounter Summary ---
[place] [address] Care Team Providers Care Public Health Physician Name Role Phone Coni Lim MD Primary Care Provider [phone] Reason for Visit * Reason Onset Date Comments Other 07/26/2013 PRE CATH WORK UP DIABETIC METFORMIN Encounter Details Date Type Department Care Team (Late st Contact Info) Description 07/26/2013 Telephone Cardiology at [address] [phone] Lana Damon Other (PRE CATH WORK UP [...] on filedocumented in this encounter Care Teams Public Health Physician Relationship Specialty Start Date End Date Coni Lim MD [address] [place] [address] PCP - General 07/16/10 documented as of this encounter
--- OUTSIDE RECORDS SUMMARY | 2024-08-19 14:55 | XMS_ITS | Encounter Summary ---
Author Organization [facility] Address [facility] [place] [address] Care Team Providers Care Color Stripper Name Role Phone Coni Lim MD Primary Care Provider [phone] Encounter Details Date Type Department Care Team (Latest Contact Info) Description 07/30/2013 5:12 AM EST - 07/30/2013 11:59 PM [facility] Hospital Encounter ZLEB 4A [facility] [place] [address] Edy Trimble MD [facility] [place] [address] Discharge Disposition: Home Social History Tobacco Use [...] Kinase 54 0 - 200 unit/L [employer] [employer] CK-MB 1.8 0.0 - 5.0 mcg/L [facility] [employer] CKMB Index 3.3 0.0 - 5.0 mcg/u [employer] [employer] Blood specimen (specimen) 07/30/2013 6:00 AM EST 07/30/2013 6:32 AM EST Narrative Resulting Agency Comment Spec In Lab Edy Damon MD CHEMISTRY ORDERABLES Performing Organization Address City/State/[facility] Co ak Phone Number [facility] documented in this encounter Visit Diagnoses Not on filedocumented in this encounter Care Teams Color Stripper Relationship Specialty Start Date End Date Coni Lim MD [address] [place] [address] PCP - General 07/16/10 documented as of this encounter
--- OUTSIDE RECORDS SUMMARY | 2024-08-19 14:55 | XMS_ITS | Encounter Summary ---
Author Organization [facility] Address [facility] [place] [address] Care Team Providers Care Licensed Marriage And Family Therapist Name Role Phone Sarita Lim MD Primary Care Provider [phone] Encounter Details Date Type Department Care Team (Late st Contact Info) Description 07/29/2013 8:00 AM EST - 07/29/2013 9:00 AM EST [place] [id number] Edy Trimble MD [facility] [place] [address] CARDIAC CATHETERIZATION Social History Tobacco Use Types [...] appointments: During 8am-5pm Thursday through Thursday call [phone] to speak with a nurse in the cardiology clinic All other times call [phone] and ask to speak to the beverage inspection machine tender biztalk consultant. Return to work: One week Driving: No driving for 48 hours after catheterization. Follow up Appointments: PCP Call for appointment in 1-2 weeks. 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 Please call for appointment Home oxygen therapy: N/A Arrangements for VNA/home care: none * Attachments The following attachments cannot be sent through Care Everywhere. * CARDIAC REHABILITATION: AFTER YOUR VISIT (KINYARWANDA) * CHEST PAIN (ANGINA): AFTER YOUR VISIT (KINYARWANDA) * PERCUTANEOUS CORONARY INTERVENTION: WHAT TO EXPECT AT HOME (KINYARWANDA) documented in this encounter Medications at Time [...] the Treatment of Subjects with de abby [place] Coronary Artery Lesions PI: Edy Trimble MD Pager #:[phone] Research Coordinators: GLADYS Rosenbaum, BA, TIME CLOCK MECHANIC Pager #:[phone] Oneil Newsome RN Pager #: [phone] Purpose: The pivotal trial to support the [place] pre-market approval (PMA) of Absorb BVS. ABSORB III will evaluate the safety and effectiveness of the Absorb BVS System compared to the XIENCE in the treatment of subjects, including those with diabetes mellitus, with ischemic heart disease caused by up to two denovo jackson coronary artery lesions in separate epicardial vessels. [...] through 5 years post procedure. Study ID#: [id number], JAM NOTE: Patient must remain blinded to their assigned study device!! * Curt Silva - 07/29/2013 7:25 AM EST ABSORB III RANDOMIZED CONTROLLED TRIAL A Clinical Evaluation of Absorb??? BVS, the Everolimus Eluting Bioresorbable Vascular Scaffold in the Treatment of Subjects with de abby [place] Coronary Artery Lesions PI: Edy Trimble MD Pager #:[phone] Research Coordinators: Curt Silva, BS, BA, TIME CLOCK MECHANIC Pager #:[phone] Oneil Newsome RN Pager #: [phone] Purpose: The pivotal trial to support the [place] pre-market approval (PMA) of Absorb BVS. ABSORB III will evaluate the safety and effectiveness of the Absorb BVS System compared to the XIENCE in the treatment of subjects, including those with diabetes mellitus, with ischemic heart disease caused by up to two denovo jackson coronary artery lesions in separate epicardial vessels. [...] - 07/29/2013 11:16 AM EST Romeo Coe [id number] 07/29/2013 48 y.o. Admission History and Physical [...] and clopidogrel per protocol. Randell Giles MD Orange Picking Supervisor Pager# [phone] 07/29/2013 Cardiology Attending Note: Patient seen and [...] 08/01/2013 8:56 PM ESTAssociated Order(s): SCAN DOC: GRAVEL HAULER documented in this encounter Miscellaneous Notes * [...] to the outpatient cardiac rehabilitation program at [facility] was discussed. He participated briefly in the program at [facility] last year ( closest to him) but did not have a good experience so stopped. A referral will be sent to [facility] the program and the patient will be [...] X 18 mm JACINDA - [facility] 2009 post abnormal nuc stress +IW, [...] appointments: During 8am-5pm Thursday through Thursday call [phone] to speak with a nurse in the cardiology clinic All other times call [phone] and ask to speak to the beverage inspection machine tender biztalk consultant. Return to work: One week Driving: No driving for 48 hours after catheterization. Follow up Appointments: PCP Call for appointment in 1-2 weeks. 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 Please call for appointment Home oxygen therapy: N/A Arrangements for VNA/home care: none General Instructions None Future Appointments and Orders Future Orders Please Complete By Expires Referral to Cardiac Rehab [[id number] Custom] Process Instructions: If no progress note charted, please enter Clinical details in comments. Scheduling Instructions: Comments: Cardiac rehab @ [facility] Questions: Responses: Reason for referral angina, stent Provider Contact Information: Dr. Atilio Giles Section of Cardiology [facility] [phone] Discharge References/Attachments: Discharge References/Attachments None Signed: Turner [...] Procedure Name Priority Date/Time Associated Diagnosis Comments GRAVEL HAULER SCAN 08/01/2013 8:56 PM EST EKG 12-LEAD [...] Routine 07/29/2013 4:53 PM EST CARDIAC ENZYMES ([facility]) STAT 07/29/2013 12:53 PM EST POCT GLUCOSE Routine 07/29/2013 12:36 PM EST EKG 12-LEAD Routine 07/29/2013 11:26 AM EST ASCVD (arteriosclerotic cardiovascular disease) CARDIAC ENZYMES ([facility]) Routine 07/29/2013 10:55 AM EST MISCELLANEOUS LAB REQUEST Routine 07/29/2013 9:24 AM EST EKG 12-LEAD Routine 07/29/2013 7:50 AM EST ASCVD (arteriosclerotic cardiovascular disease) POCT GLUCOSE Routine 07/29/2013 7:46 AM EST ELECTROLYTES PANEL STAT 07/29/2013 6: 06 AM EST ASCVD (arteriosclerotic cardiovascular disease) documented in this encounter Results * SCAN DOC: GRAVEL HAULER (08/01/2013 8:56 PM EST) Anatomical Region Laterality [...] (Bezet) 405 ms MUSE SYSTEM Calculated P Hazard 7 degrees MUSE SYSTEM Calculated R Hazard 24 degrees MUSE SYSTEM Calculated T Hazard 20 degrees MUSE SYSTEM INTERPRETATION Normal sinus rhythm Normal ECG When compared with ECG of 29-JUL-2013 11:26, No significant change was found Confirmed by MD JACKSON, FR[place] ([id number]) on 07/30/2013 11:46:49 AM MUSE SYSTEM 07/30/2013 8:41 AM EST 07/30/2013 11:46 AM EST Edy Damon MD ECG ORDERABLES MUSE SYSTEM * POCT Glucose (07/30/2013 8:09 AM EST) Glucose, POC 156 60 - 199 mg/dL [facility] Comment: Supplemental ranges: <110 mg/dL before meals <200 mg/dL all other times of the day Blood specimen (specimen) 07/30/2013 8:09 AM EST 07/30/2013 8:09 AM EST Supa Lopez MD POINT OF CARE TEST ORDERABLES [facility] * Differential, Automated (07/30/2013 6:35 AM EST) Neutrophil % 60.0 34.0 - 71.0 % [facility] Neutrophil Absolute 5.42 1.50 - 6.30 x10(3)/mcL [facility] Lymph % 27.8 19.0 - 53.0 % [...] EST Edy Damon MD HEMATOLOGY ORDERABLE [facility] * CBC (with Diff) (07/30/2013 6:35 [...] Lab Edy Damon MD HEMATOLOGY ORDERABLE [facility] * (ABNORMAL) Lipid panel (fasting) [...] ??150-199 mg/dL High: ??200-499 mg/dL Very high: ??>zh=432 mg/dL RACHEL 2001; 285(19):3386-8117 HDL Cholesterol 36(L) >=40 mg/dL [facility] Comment: Reference range: ??Low HDL: ?? < 40 mg/dL ??Normal: ?40-60 mg/dL ??Desirable: > 60 mg/dL RACHEL 2001; 285(19):9669-0425 LDL Cholesterol 87 <=99 mg/dL [facility] Comment: Reference range: ?? Optimal: ?<100 mg/dL ?? Near Optimal/Above Optimal: ?? 100-129 mg/dL ?? Borderline high: ?130-159 mg/dL ?? High: ? 160-189 mg/dL ?? Very high: ?>gt=749 mg/dL RACHEL 2001: 285(19):3520-3125 Cholesterol/HDL Ratio 4.3 ratio [facility] Comment: [...] Lab Edy Damon MD CHEMISTRY ORDERABLES [facility] * (ABNORMAL) BMP w/fasting Glucose (07/30/2013 6:30 AM EST) Glucose Fasting 156(H) 65 - 99 mg/dL [facility]NI[facility] Comment: ?Fasting* Glucose Interpretive Criteria Normal [...] Urea Nitrogen 11 10 - 20 mg/dL [facility] Creatinine 0.62(L) 0.80 - 1.50 mg/dL [...] damage. Diagnosis of acute, evolving or recent [place] requires a typical rise and gradual fall [...] Kinase 60 0 - 200 unit/L [facility] Blood specimen (specimen) 07/30/2013 6:30 AM EST 07/30/2013 6:44 AM EST Narrative Resulting Agency Comment Spec In Lab Edy Damon MD CHEMISTRY ORDERABLES Performing Organization Address [facility] de Phone Number [facility] * Miscellaneous Lab request (07/30/2013 6:00 AM EST) Label Request received in lab. [facility] Blood specimen (specimen) 07/30/2013 6:00 AM EST 07/30/2013 6:31 AM EST Edy Damon MD LAB SEND OUT ORDERAB LES Performing Organization Address [facility] de Phone Number [facility] * POCT Glucose (07/30/2013 4:18 AM EST) Glucose, POC 145 60 - 199 mg/dL [facility] Comment: Supplemental ranges: <110 mg/dL before meals <200 mg/dL all other times of the day Blood specimen (specimen) 07/30/2013 4:18 AM EST 07/30/2013 4:18 AM EST Supa Lopez MD POINT OF CARE TEST ORDERABLES Performing Organization Address [facility]/ZIP Co de Phone Number [facility] * POCT Glucose (07/30/2013 12:17 AM EST) Glucose, POC 129 60 - 199 mg/dL [facility] Comment: Supplemental ranges: <110 mg/dL before meals <200 mg/dL all other times of the day Blood specimen (specimen) 07/30/2013 12:17 AM EST 07/30/2013 12:17 AM EST Supa Lopez MD POINT OF CARE TEST ORDERABLES Performing Organization Address [facility] de Phone Number [facility] * POCT Glucose (07/29/2013 8:02 PM EST) Glucose, POC 127 60 - 199 mg/dL [facility] Comment: Supplemental ranges: <110 mg/dL before meals <200 mg/dL all other times of the day Blood specimen (specimen) 07/29/2013 8:02 PM EST 07/29/2013 8:02 PM EST Supa Lopez MD POINT OF CARE TEST ORDERABLES Performing Organization Address [facility] de Phone Number [facility] * Miscellaneous Lab request (07/29/2013 6:05 PM EST) Label Request received in lab. [facility] Blood specimen (specimen) 07/29/2013 6:05 PM EST 07/29/2013 6:17 PM EST Edy Damon MD LAB SEND OUT ORDERAB LES Performing Organization Address [facility] Co de Phone Number [facility] * POCT Glucose (07/29/2013 4:53 PM EST) Glucose, POC 138 60 - 199 mg/dL [facility] Comment: Supplemental ranges: <110 mg/dL before meals <200 mg/dL all other times of the day Blood specimen (specimen) 07/29/2013 4:53 PM EST 07/29/2013 4:53 PM EST Supa Lopez MD POINT OF CARE TEST ORDERABLES Performing Organization Address [facility] de Phone Number [facility] * Cardiac Enzymes (07/29/2013 12:53 PM EST) Troponin-T <0.03 <=0.03 ng/mL [facility] Comment: 0.03 ng/mL: Represents the 99th percentile upper reference limit for normals. >0.03 ng/mL: Elevated cardiac troponin T level indicative of myocardial damage. Diagnosis of acute, evolving or recent [place] requires a typical rise and gradual fall [...] Creatine Kinase 55 0 - 200 unit/L [facility] Blood specimen (specimen) 07/29/2013 12:53 PM EST 07/29/2013 12:59 PM EST Narrative Resulting Agency Comment Spec In Lab Edy Damon MD CHEMISTRY ORDERABLES Performing Organization Address [facility] de Phone Number [facility] * POCT Glucose (07/29/2013 12:36 PM EST) Glucose, POC 142 60 - 199 mg/dL [facility] Comment: Supplemental ranges: <110 mg/dL before meals <200 mg/dL all other times of the day Blood specimen (specimen) 07/29/2013 12:36 PM EST 07/29/2013 12:36 PM EST Supa Lopez MD POINT OF CARE TEST ORDERABLES Performing Organization Address [facility] de Phone Number [facility] * EKG 12 Lead (07/29/2013 11:26 AM EST) Ventricular rate 67 BPM MUSE SYSTEM Atrial Rate 67 BPM MUSE SYSTEM P-R Interval 164 ms MUSE SYSTEM QRS Duration 90 ms MUSE SYSTEM Q-T Interval 394 ms MUSE SYSTEM QTC Calculated (Bezet) 416 ms MUSE SYSTEM Calculated P Hazard 48 degrees MUSE SYSTEM Calculated R Hazard 33 degrees MUSE SYSTEM Calculated T Hazard 32 degrees MUSE SYSTEM INTERPRETATION Normal sinus rhythm Normal ECG When compared with ECG of 29-JUL-2013 07:50, (unconfirmed) No significant change was found Confirmed by MD SELINA, FRED ([id number]) on 07/30/2013 7:39:47 AM MUSE SYSTEM 07/29/2013 11:2 6 AM EST 07/30/2013 7:39 AM EST Edy Damon MD ECG ORDERABLES Performing Organization Address [facility] de Phone Number MUSE SYSTEM * Cardiac Enzymes (07/29/2013 10:55 AM EST) Troponin-T <0.03 <=0.03 ng/mL [facility] [employer] Comment: 0.03 ng/mL: Represents the 99th percentile upper reference limit for normals. >0.03 ng/mL: Elevated cardiac troponin T level indicative of myocardial damage. Diagnosis of acute, evolving or recent [place] requires a typical rise and gradual fall [...] Creatine Kinase 50 0 - 200 unit/L [facility] Blood specimen (specimen) 07/29/2013 10:55 AM EST 07/29/2013 11:08 AM EST Narrative Resulting Agency Comment Spec In Lab Edy Damon MD CHEMISTRY ORDERABLES Performing Organization Address [facility] de Phone Number [facility] * Miscellaneous Lab request (07/29/2013 9:24 AM EST) Label Request received in lab. [facility] Blood specimen (specimen) 07/29/2013 9:24 AM EST 07/29/2013 10:56 AM EST Edy Damon MD LAB SEND OUT ORDERAB LES Performing Organization Address [facility] Phone Number [facility] * EKG 12 Lead (07/29/2013 7:50 AM EST) Ventricular rate 72 BPM MUSE SYSTEM Atrial Rate 72 BPM MUSE SYSTEM P-R Interval 136 ms MUSE SYSTEM QRS Duration 94 ms MUSE SYSTEM Q-T Interval 372 ms MUSE SYSTEM QTC Calculated (Bezet) 407 ms MUSE SYSTEM Calculated P Hazard 3 degrees MUSE SYSTEM Calculated R Hazard 42 degrees MUSE SYSTEM Calculated T Hazard 36 degrees MUSE SYSTEM INTERPRETATION Normal sinus rhythm Normal ECG When compared with ECG of 15-JUN-2012 12:40, No significant change was found Confirmed by MD SELINA, FRED ([id number]) on 07/30/2013 7:24:11 AM MUSE SYSTEM 07/29/2013 7:50 AM EST 07/30/2013 7:24 AM EST Edy Damon MD ECG ORDERABLES Performing Organization Address [facility] Co de Phone Number MUSE SYSTEM * POCT Glucose (07/29/2013 7:46 AM EST) Glucose, POC 160 60 - 199 mg/dL [facility] Comment: Supplemental ranges: <110 mg/dL before meals <200 mg/dL all other times of the day Blood specimen (specimen) 07/29/2013 7:46 AM EST 07/29/2013 7:46 AM EST Supa Lopez MD POINT OF CARE TEST ORDERABLES Performing Organization Address City/[facility] Co de Phone Number TANG [...] Ball MD CHEMISTRY ORDERABLES Performing Organization Address [facility] Co de Phone Number TANG [...] in sodium chloride 0.9% 90 mL infusion (MANAGER REVIEW) CONTINUOUS PRN, Starting on Thu07/29/13 at 0955, [...] 07/30/13 at 0900, Until Discontinued, Routine 1342 ([facility] Hold - Provider: Admin Adt - Reason: Transfer to a Procedural area)1343 ([facility] Unhold - Provider: Admin Adt) 0826 (Given - Provider: Reina Randall RN) clopidogrel (PLAVIX) tablet 75 mg (CANCELED) 75 mg, Oral, DAILY, First dose on Thu07/29/13 at 1245, Until Discontinued, Routine 1245 (Not Given - Provider: Jessica Barr RN - Reason: See comment - Comment: pt took in a.m.)1342 ([facility] Hold - Provider: Admin Adt - Reason: Transfer to a Procedural area)1343 ([facility] Unhold - Provider: Admin Adt) 0826 (Given - Provider: Reina Randall RN) cyclobenzaprine (FLEXERIL) tablet 10 mg (CANCELED) 10 mg, Oral, NIGHTLY, First dose on Thu07/29/13 at 2100, Until Discontinued, Routine 1342 ([facility] Hold - Provider: Admin Adt - Reason: Transfer to a Procedural area)1343 ([facility] Unhold - Provider: Admin Adt)2122 (Given - Provider: Mahesh Hurt RN) diaZEPam (VALIUM) tablet 5 mg (COMPLETED) 5 mg, Oral, ONCE, 1 dose, On Thu07/29/13 at 0800, Cath (Day of Procedure), Routine 0838 (Given - Provider: Kemi Mullen, VERO) DILTiazem (DILACOR XR) XR capsule 240 mg (CANCELED) 240 mg, Oral, DAILY, First dose on 07/30/13 at 0900, Until Discontinued, Routine 1342 ([facility] Hold - Provider: Admin Adt - Reason: Transfer to a Procedural area)1343 ([facility] Unhold - Provider: Admin Adt) 0826 [...] at 2100, Until Discontinued, Routine 1342 ([facility] Hold - Provider: Admin Adt - Reason: Transfer to a Procedural area)1343 ([facility] Unhold - Provider: Admin Adt)2122 (Given - Provider: Mahesh Hurt, RN) 0826 (Given - Provider: Reina Randall RN) furosemide (LASIX) tablet 20 mg (CANCELED) 20 mg, Oral, DAILY, First dose on Thu07/29/13 at 1245, Until Discontinued, Routine 1245 (Not Given - Provider: Jessica Barr RN - Reason: Patient/family refused)1342 ([facility] Hold - Provider: Admin Adt - Reason: Transfer to a Procedural area)1343 ([facility] Unhold - Provider: Admin Adt) 0826 (Given - Provider: Reina Randall RN) gabapentin (NEURONTIN) capsule 300 mg (CANCELED) 300 mg, Oral, 3 TIMES DAILY, First dose on Thu07/29/13 at 1500, Until Discontinued, Routine 1342 ([facility] Hold - Provider: Admin Adt - Reason: Transfer to a Procedural area)1343 ([facility] Unhold - Provider: Admin Adt)1500 (Given [...] 07/30/13 at 0600, Until Discontinued, Routine 1342 ([facility] Hold - Provider: Admin Adt - Reason: Transfer to a Procedural area)1343 ([facility] Unhold - Provider: Admin Adt) 0638 (Given - Provider: Mahesh Hurt RN) metoprolol tartrate (LOPRESSOR) tablet 50 mg (CANCELED) 50 mg, Oral, 2 TIMES DAILY, First dose on Thu07/29/13 at 1245, Until Discontinued, Routine 1245 (Not Given - Provider: Jessica Barr RN - Reason: See comment - Comment: pt took in a.m.)1342 ([facility] Hold - Provider: Admin Adt - Reason: Transfer to a Procedural area)1343 ([facility] Unhold - Provider: Admin Adt)212 (Given - Provider: Mahesh Hurt RN) 08 (Given - Provider: Reina Randall RN) pantoprazole (PROTONIX) tablet 20 mg 20 mg, Oral, DAILY, First dose on 07/30/13 at 0900, Until Discontinued, Restricted to patients on clopidpgrel (PLAVIX) who require a proton pump inhibitor 1342 ([facility] Hold - Provider: Admin Adt - Reason: Transfer to a Procedural area)1343 ([facility] Unhold - Provider: Admin Adt) 0826 (Given - Provider: Reina Randall RN) rosuvastatin (CRESTOR) tablet 10 mg (CANCELED) 10 mg, Oral, EVERY EVENING, First dose on Thu07/29/13 at 1700, Until Discontinued, Routine 1342 ([facility] Hold - Provider: Admin Adt - Reason: Transfer to a Procedural area)1343 ([facility] Unhold - Provider: Admin Adt)1700 (Given [...] (New Bag - Provider: Keeley Kyle RN)1342 ([facility] Hold - Provider: Admin Adt - Reason: Transfer to a Procedural area)1343 ([facility] Unhold - Provider: Admin Adt)1652 (Stopped - Provider: Jessica Barr RN) PRN Medication Order 07/28/2013 07/29/2013 07/30/2013 adenosine 90 mg in sodium chloride 0.9% 90 mL infusion (MANAGER REVIEW) (CANCELED) CONTINUOUS PRN, Starting on Thu07/29/13 at [...] MD) documented in this encounter Care Teams Licensed Marriage And Family Therapist Relationship Specialty Start Date End Date Sarita Lim MD [address] [place] [address] PCP - General 07/16/10 documented as of this encounter
--- OUTSIDE RECORDS SUMMARY | 2024-08-19 14:56 | XMS_ITS | Encounter Summary ---
Author Organization [facility] Address [facility] [place] [address] Care Team Providers Care Scientific Research Manager Name Role Phone Coni Lim MD Primary Care Provider [phone] Encounter Details Date Type Department Care Team (Late st Contact Info) Description 06/14/2012 Orders Only Cardiology at [address] [address] Bryan Iverson MD [facility] CARDIOLOGY [place] [id number] Social History Tobacco Use Types Packs/Day Years [...] MD IM FILM LIBRARY ORD ERABLES RAD [address] [place] [address] documented in this encounter Visit Diagnoses Not on filedocumented in this encounter Care Teams Scientific Research Manager Relationship Specialty Start Date End Date Coni Lim MD [address] [place] [address] PCP - General 07/16/10 documented as of this encounter
--- OUTSIDE RECORDS SUMMARY | 2024-08-19 14:56 | XMS_ITS | Encounter Summary ---
Author Organization [facility] [place] [address] Care Team Providers Care Swimmer Name Role Phone Coni Lim MD Primary Care Provider [phone] Encounter Details Date Type Department Care Team (Late st Contact Info) Description 06/04/2012 Telephone [place] [address] Chester Pitts, RN Social History Tobacco Use [...] on filedocumented in this encounter Care Teams Swimmer Relationship Specialty Start Date End Date Coni Lim MD [address] [place] [address] PCP - General 07/16/10 documented as of this encounter
--- OUTSIDE RECORDS SUMMARY | 2024-08-19 14:56 | XMS_ITS | Encounter Summary ---
Author Organization [place] [address] Care Team Providers Care Electrical Electronics Engineers Name Role Phone Coni Lim MD Primary Care Provider [phone] Encounter Details Date Type Department Care Team (Late st Contact Info) Description 06/04/2012 Orders Only Cardiology at [address] [address] Antonio Rivas MD CAD (coronary artery disease) (Primary Dx) Social [...] Coronary atherosclerosis of unspecified type of vessel, stebbins or graft documented in this encounter Care Teams Electrical Electronics Engineers Relationship Specialty Start Date End Date Coni Lim MD [address] [place] [address] PCP - General 07/16/10 documented as of this encounter
--- OUTSIDE RECORDS SUMMARY | 2024-08-19 14:56 | XMS_ITS | Referral Summary ---
Author Organization [facility] Address [address] [place] [address] Care Team Providers Care Screen Writer Name Role Phone Coni Lim MD Primary Care Provider [phone] Allergies Active Allergy Reactions Criticality Noted Date [...] Acute respiratory failure with hypoxia ([facility]) 04/08/2023 Idiopathic hypotension 04/08/2023 CVA (cerebral vascular accident) ([facility]) 03/15 Anxiety and depression 02/22/2014 Unstable angina ([facility]) 02/15/2014 CAD (coronary artery disease) [...] Advance Directives For more information, please contact: [phone] * Full Code (Latest Code Status on [...] Comments 02/14/2014 22:30 02/16/2014 17:34 Care Teams Screen Writer Relationship Specialty Start Date End Date Coni Lim MD [address] [place] [id number] PCP - General 12/17/11
--- OUTSIDE RECORDS SUMMARY | 2024-08-19 14:56 | XMS_ITS | Encounter Summary ---
Author Organization [facility] Address [facility] [place] [address] Care Team Providers Care Health Club Manager Name Role Phone Coni Lim MD Primary Care Provider [phone] Encounter Details Date Type Department Care Team (Late st Contact Info) Description 05/31/2012 Orders Only Cardiology at [address] [id number] [place], [place] [facility] [place] [address] CAD (coronary artery disease), non-obstructive (Primary Dx) [...] Coronary atherosclerosis of unspecified type of vessel, pit river or graft documented in this encounter Care Teams Health Club Manager Relationship Specialty Start Date End Date Coni Lim MD [address] [place] [address] PCP - General 07/16/10 documented as of this encounter
--- OUTSIDE RECORDS SUMMARY | 2024-08-19 14:56 | XMS_ITS | Encounter Summary ---
Author Organization [facility] [address] [address] Care Team Providers Care Pomologist Name Role Phone Coni Lim MD Primary Care Provider [phone] Encounter Details Date Type Department Care Team (Late st Contact Info) Description 06/14/2012 [place] [address] Benjie Castellon MD Social History Tobacco Use Types Packs/Day [...] on filedocumented in this encounter Care Teams Pomologist Relationship Specialty Start Date End Date Coni Lim MD [address] [place] [address] PCP - General 07/16/10 documented as of this encounter
--- OUTSIDE RECORDS SUMMARY | 2024-08-19 14:56 | XMS_ITS | Encounter Summary ---
Author Organization [facility] Address [facility] [place] [address] Care Team Providers Care Dye Reel Operator Name Role Phone Sarita Lim MD Primary Care Provider [phone] Encounter Details Date Type Department Care Team (Latest Contact Info) Description 06/14/2012 1:39 PM EDT - 06/15/2012 6:03 PM EDT Hospital Encounter Intermediate [place] [id number] Bryan Iverson MD [facility] [place] [address] Chest pain; GERD (gastroesophageal reflux disease); HTN [...] appointments: During 8am-5pm Thursday through Thursday call [phone] to speak with a nurse in the cardiology clinic All other times call [phone] and ask to speak to the solar energy engineer aviation neuropsychologist. Return to work: As tolerated Driving: As tolerated Follow up Appointments: PCP SARITA LIM MD June 22, 2012 at 11:15 [address]. Leyva June 17, 2012 at 9:40 am Home oxygen therapy: N/A Arrangements for VNA/home care: none Pain clinic phone number for referral [phone] * Attachments The following attachments cannot be sent through Care Everywhere. * CHEST PAIN (ANGINA): AFTER YOUR VISIT (LATVIAN) documented in this encounter Medications at Time [...] Progress Note Patient Name: Romeo Coe Service: PRESSURIZATION MECHANIC / PA Responsible Attending: Dr. Iverson Reason for continued hospitalization: Evaluation and management of chest pain, myocardial infarction excluded by enzymes Active Problems: Active Hospital Problems Diagnoses ??? Chest pain ??? Dyslipidemia ??? GERD (gastroesophageal reflux disease) ??? HTN (hypertension) ??? DM (diabetes mellitus) ??? Smoker ??? CAD (coronary artery disease), non-obstructive - [facility] 2009 post abnormal nuc stress +IW, [...] ??? DISCONTD: sodium chloride 0.9% Stopped (06/15/12 5504) ??? DISCONTD: heparin 1,650 Units/hr (06/15/12 0315) [...] abnormality. ECG without change. Ruled out for PR despite having over 6 hours of pain. Chest pain responsive to nitrates and to morphine yesterday. Pain free this morning. This afternoon, chest pain lying in bed 5/10. ECG unchanged. Responsive to nitroglycerin. Barium swallow cancelled due to barium shortage. Will schedule as an outpatient. Reviewed possibilities of chest pain. Ruled out for PE with negative D dimer yesterday at [facility]. No effusion on echo. CXR negative for widened mediastinum. Hepatic labs normal. No gallbladder. Ruled out for PR and no cardiac enzymes or objective evidence of ischemia seen. Patient has history of fibromyalgia managed by cymbalta. Will increase nitrate dosing and consult pain service. Plan: Chest pain Non cardiac, ruled out for PR, echo showed no WMA ? Esophageal spasm [...] ??? CAD (coronary artery disease), non-obstructive - [facility] 2009 post abnormal nuc stress +IW, [...] son's biological father. He wastransported to the [facility] ED where he was evaluated and [...] rehab and he was transferred to the [facility] ED where 3 moresl nitroglycerin tablets were given. He didn't have any relief with these nitroglycerin tablets. In the [facility] ED his ECG showed no change, negative d dimer and troponin. He was given IV lopressor which dropped his HR from 115 to 90, IV zofran 4 mg and IV ativan 0.[address] was done which is reported as negative. He was transferred to [facility] for further management. He arrives to [facility] with 6/10 chest pain and jaw [...] of Onset ??? Heart Attack Father 46 PR, CABG ??? Diabetes Mother [...] son (age 18 months), daughter 11 in [place], [place]. Takes care of his mother who has dementia and he takes her to dialysis. is disabled. Has grown daughter who is 29 years old. 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 REVIEW OF SYSTEMS: Review of Systems [...] ECG change or elevated troponin found at [facility]. Chest pain has remained for 6 hours without relief, will check [facility] cardiac enzymes. ECG at [facility] unchanged fromECG at discharge 10 days ago. Will get echo with pain now to evaluate for wall motion abnormality. Will place on heparin gtt TREATMENT PLAN: Chest pain Will get echo with pain Start heparin gtt Cycle cardiac enzymes, 1st set at [facility] negative Non nitrate responsive CAD On aspirin, [...] Iverson Provider: SUSHMA WILCOX APRN Provider #: [id number] STAFF ADDENDUM Patient interviewed and examined. Medical [...] 06/16/2012 11:28 AM EDTAssociated Order(s): SCAN DOC: GARNETT MECHANIC documented in this encounter Miscellaneous Notes * [...] questions, * Discharge Summary - Sushma Wilcox, SHADE BANDER - 06/15/2012 9:53 AM EDT Images from [...] ??? CAD (coronary artery disease), non-obstructive - [facility] 2009 post abnormal nuc stress +IW, [...] son's biological father. He wastransported to the [facility] ED where he was evaluated and [...] rehab and he was transferred to the [facility] ED where 3 more sl nitroglycerin tablets were given. He didn't have any relief with these nitroglycerin tablets. In the [facility] ED his ECG showed no change, negative d dimer and troponin. He was given IV lopressor which dropped his HR from 115 to 90, IV zofran 4 mg and IV ativan 0.[address] was done which is reported as negative. He was transferred to [facility] for further management. He arrives to [facility] with 6/10 chest pain and jaw pain. He appears to be resting comfortably in bed. Hospital Course: Chest Pain, non cardiac The patient had ongoing pain on arrival to [facility], rated 5/10. Echo done at the time showed no wall motion abnormality and an EF of 65%. He had negative cardiac enzymes x 3 sets and heparin was stopped. Chest pain resolved with morphine. Overnight he had another episode of chest pain which was nitrate responsive. Chest pain from the following causes was excluded: Cardiac, pulmonary with normal d dimer at [facility] and CXR with only smoker's changes, [...] meds needed now, [facility] Patient switched to plavix due [...] appointments: During 8am-5pm Thursday through Thursday call [phone] to speak with a nurse in the cardiology clinic All other times call [phone] and ask to speak to the solar energy engineer aviation neuropsychologist. Return to work: As tolerated Driving: As tolerated Follow up Appointments: PCP SARITA LIM MD June 22, 2012 at 11:15 am Solutions Development [address] Dr. Leyva June 17, 2012 at 9:40 am Home oxygen therapy: N/A Arrangements for VNA/home care: none Pain clinic phone number for referral [phone] Provider Contact Information: SUSHMA WILCOX, SHADE BANDER [phone] Discharge References/Attachments: Discharge References/Attachments None Signed: Sushma Wilcox, SHADE BANDER 06/15/2012 * Miscellaneous - Provider, Scanning - 06/14/2012 9:38 PM EDT documented in this encounter Plan of Treatment Not on file documented as of this encounter Procedures Procedure Name Priority Date/Time Associated Diagnosis Comments GARNETT MECHANIC SCAN 06/16/2012 11:28 AM EDT POCT GLUCOSE [...] 10:40 PM EDT Chest pain CARDIAC ENZYMES ([facility]) STAT 06/14/2012 8:55 PM EDT APTT STAT 06/14/2012 8:55 PM EDT XR CHEST PA AND LATERAL Routine 06/14/20 12 8:45 PM EDT POCT GLUCOSE Routine 06/14/2012 8:11 PM EDT POCT GLUCOSE Routine 06/14/2012 4:57 PM EDT ECHOCARDIOGRAM TRANSTHORACIC STAT 06/14/2012 4:00 PM EDT Chest pain BMP W/FASTING GLUCOSE STAT 06/14/2012 2:38 PM EDT DIFFERENTIAL, AUTOMATED STAT 06/14/20 12 2:38 PM EDT CARDIAC ENZYMES ([facility]) STAT 06/14/2012 2:38 PM EDT APTT STAT 06/14/2012 2:38 PM EDT PROTHROMBIN TIME STAT 06/14/2012 2:38 PM EDT CBC (WITH DIFF) STAT 06/14/2012 2:38 PM EDT EKG 12-LEAD STAT 06/14/2012 2:27 PM EDT Chest pain documented in this encounter Results * SCAN DOC: GARNETT MECHANIC (06/16/2012 11:28 AM EDT) Anatomical Region Laterality Modality Other Narrative 06/16/2012 1:12 PM EDT Procedure Note Provider, Scanning - 06/16/2012 11:28 AM EDT Scanning Provider MEDIA MGR SCAN EXT O RDR/RSLT * POCT GLUCOSE (06/15/2012 5:48 PM EDT) Glucose, POC 138 60 - 199 mg/dL [facility] Comment: Supplemental ranges: <110 mg/dL before meals <200 mg/dL all other times of the day Blood specimen (specimen) 06/15/2012 5:48 PM EDT 06/15/2012 5:48 PM EDT Bryan Iverson MD POINT OF CARE TEST O RDERABLES Performing Organization Address [facility] Co de Phone Number [facility] * EKG 12 Lead (06/15/2012 12:40 PM EDT) Ventricular rate 91 BPM MUSE SYSTEM Atrial Rate 91 BPM MUSE SYSTEM P-R Interval 138 ms MUSE SYSTEM QRS Duration 82 ms MUSE SYSTEM Q-T Interval 328 ms MUSE SYSTEM QTC Calculated (Bezet) 403 ms MUSE SYSTEM Calculated P [place] 27 degrees MUSE SYSTEM Calculated R [place] 31 degrees MUSE SYSTEM Calculated T [place] 41 degrees MUSE SYSTEM INTERPRETATION Normal sinus [...] Glucose, POC 164 60 - 199 mg/dL [facility] Comment: Supplemental ranges: <110 mg/dL before meals <200 mg/dL all other times of the day Blood specimen (specimen) 06/15/2012 12:00 PM EDT 06/15/2012 12:00 PM EDT Bryan Iverson MD POINT OF CARE TEST O RDERAAIRAM Performing Organization Address [facility] de Phone Number [facility] * POCT GLUCOSE (06/15/2012 7:51 AM EDT) Pathologist [facility] [place] Glucose, POC 166 60 - 199 mg/dL [facility] Comment: Supplemental ranges: <110 mg/dL before meals <200 mg/dL all other times of the day Blood specimen (specimen) 06/15/2012 7:51 AM EDT 06/15/2012 7:51 AM EDT Bryan Iverson MD POINT OF CARE TEST O RDERAAIRAM Performing Organization Address [facility] de Phone Number [facility] * (ABNORMAL) APTT (06/15/2012 7:35 AM EDT) Partial Thromboplastin Time 130(H) 25 - 35 sec [facility] Comment: Recommended therapeutic PTT range for full dose unfractionated heparin is 80-114 seconds. Blood specimen (specimen) 06/15/2012 7:35 AM EDT 06/15/2012 7:49 AM EDT Narrative Resulting Agency Comment Spec In Lab Bryan Iverson MD HEMATOLOGY ORDERABLE S Performing Organization Address [facility] Phone Number [facility] * EKG 12 Lead (06/15/2012 7:17 AM EDT) Ventricular rate 69 BPM MUSE SYSTEM Atrial Rate 69 BPM MUSE SYSTEM P-R Interval 148 ms MUSE SYSTEM QRS Duration 94 ms MUSE SYSTEM Q-T Interval 374 ms MUSE SYSTEM QTC Calculated (Bezet) 400 ms MUSE SYSTEM Calculated P [place] 20 degrees MUSE SYSTEM Calculated R [place] 35 degrees MUSE SYSTEM Calculated T [place] 36 degrees MUSE SYSTEM INTERPRETATION Normal sinus rhythm Normal ECG When compared with ECG of 14-JUN-2012 22:40, (unconfirmed) No significant change was found Confirmed by MD Walton Douglas (57) on 06/15/2012 9:36:33 AM MUSE SYSTEM 06/15/2012 7:17 AM EDT 06/15/2012 9:36 AM EDT Bryan Iverson MD ECG ORDERABLES Performing Organization Address [facility]/ZIP Co de Phone Number MUSE SYSTEM * CARDIAC ENZYMES (06/15/2012 2:08 AM EDT) Troponin-T <0.03 <=0.03 ng/mL [facility] Comment: 0.03 ng/mL: Represents the 99th percentile upper reference limit for normals. >0.03 ng/mL: Elevated cardiac troponin T level indicative of myocardial damage. Diagnosis of acute, evolving or recent PR requires a typical rise and gradual fall [...] consensus document of the Joint Society of Cardiology/[place] College of Cardiology Committee for the redefinition of myocardial infarction. Journal of the [place] College of Cardiology 2000; 36: 959-969] Creatine Kinase 52 0 - 200 unit/L [facility]ITAL[facility] Blood specimen (specimen) 06/15/2012 2:08 AM EDT 06/15/2012 2:28 AM EDT Narrative Resulting Agency Comment Spec In Lab Bryan Iverson MD CHEMISTRY ORDERABLES Performing Organization Address [facility]/ZIP Co de Phone Number [facility] Strategic Funding Source * (ABNORMAL) BMP w/fasting Glucose (06/15/2012 2:08 AM EDT) Glucose Fasting 125(H) 65 - 99 mg/dL [facility] [employer] [facility] Comment: ?Fasting* Glucose Interpretive Criteria [...] of Diabetes Mellitus, Position Statement from the [place] Diabetes Association. ??Diabetes Care, Volume 33, Supplement [...] Iverson MD CHEMISTRY ORDERABLES Performing Organization Address [facility] Co de Phone Number [employer] * (ABNORMAL) APTT (06/15/2012 2:08 AM EDT) [facility] Signature Partial Thromboplastin Time 76(H) 25 - 35 sec TANG [employer] NetworkCHANEL Comment: Recommended therapeutic PTT range for full dose unfractionated heparin is 80-114 seconds. Blood specimen (specimen) 06/15/2012 2:08 AM EDT 06/15/2012 2:28 AM EDT Narrative Resulting Agency Comment Spec In Lab Bryan Iverson MD HEMATOLOGY ORDERABLE S Performing Organization Address [facility] Co de Phone Number CERNER [...] CHEMISTRY ORDERABLES Performing Organization Address City/[facility] Co de Phone Number TANG CLEMENSIUM * TSH (06/15/2012 2:08 AM EDT) Thyroid Stimulating Hormone 1.62 0.27 - 4.20 mcIU/mL CERNER MILLENNIUM Blood specimen (specimen) 06/15/2012 2:08 AM EDT 06/15/2012 2:28 AM EDT Narrative Resulting Agency Comment Spec In Lab Bryan Iverson MD CHEMISTRY ORDERABLES Performing Organization Address City/[facility] Co de Phone Number CERANNABEL JENSENENNIUM [...] HEMATOLOGY ORDERABLE S Performing Organization Address [facility] de Phone Number [facility] * EKG 12 Lead (06/14/2012 10:40 PM EDT) Pathologist [facility] Ventricular rate 87 BPM MUSE SYSTEM Atrial Rate 87 BPM MUSE SYSTEM P-R Interval 152 ms MUSE SYSTEM QRS Duration 90 ms MUSE SYSTEM Q-T Interval 356 ms MUSE SYSTEM QTC Calculated (Bezet) 428 ms MUSE SYSTEM Calculated P [place] 33 degrees MUSE SYSTEM Calculated R [place] 27 degrees MUSE SYSTEM Calculated T [place] 37 degrees MUSE SYSTEM INTERPRETATION Normal sinus rhythm Normal ECG When compared with ECG of 14-JUN-2012 14:27, No significant change was found Confirmed by MD Anton, Asif (57) on 06/15/2012 9:29:03 AM MUSE SYSTEM 06/14/2012 10:4 0 PM EDT 06/15/2012 9:29 AM EDT Bryan Iverson MD ECG ORDERABLES Performing Organization Address [facility] de Phone Number MUSE SYSTEM * Cardiac Enzymes (06/14/2012 8:55 PM EDT) Pathologist [facility] Troponin-T <0.03 <=0.03 ng/mL [facility] Comment: 0.03 ng/mL: Represents the 99th percentile upper reference limit for normals. >0.03 ng/mL: Elevated cardiac troponin T level indicative of myocardial damage. Diagnosis of acute, evolving or recent PR requires a typical rise and gradual fall [...] consensus document of the Joint Society of Cardiology/[place] College of Cardiology Committee for the redefinition of myocardial infarction. Journal of the [place] College of Cardiology 2000; 36: 959-969] Creatine Kinase 53 0 - 200 unit/L CERANNABEL [employer] Blood specimen (specimen) 06/14/2012 8:55 PM EDT 06/14/2012 9:40 PM EDT Narrative Resulting Agency Comment Spec In Lab Bryan Iverson MD CHEMISTRY ORDERABLES Performing Organization Address City/[facility]/ZIP Co de Phone Number TANG Strategic Funding Source * APTT (06/14/2012 8:55 PM EDT) Partial Thromboplastin Time 33 25 - 35 sec CERANNABEL [employer] Comment: Recommended therapeutic PTT range for full dose unfractionated heparin is 80-114 seconds. Blood specimen (specimen) 06/14/2012 8:55 PM EDT 06/14/2012 9:40 PM EDT Narrative Resulting Agency Comment Spec In Lab Bryan Iverson MD HEMATOLOGY ORDERABLE S Performing Organization Address City/[facility]/ZIP Co de Phone Number TANG Strategic Funding Source * XR chest routine PA & lateral (06/14/2012 8:45 PM EDT) Anatomical Region Laterality Modality Chest N/A Radiographic Shelly ging 06/14/2012 8:45 PM EDT Narrative 06/15/2012 9:18 AM EDT Examination CHEST ROUTINE 2 VIEWS Clinical History chest pain, + smoker, recent coronary stents Comparison Is made with the study of 06/14 016014 hours. Technique Findings Cardiomediastinal silhouette is normal. [...] Is made with the study of 06/14 813318 hours. Technique Findings Cardiomediastinal silhouette is normal. [...] Glucose, POC 207(H) 60 - 199 mg/dL [facility] Comment: Supplemental ranges: <110 mg/dL before meals <200 mg/dL all other times of the day Blood specimen (specimen) 06/14/2012 8:11 PM EDT 06/14/2012 8:11 PM EDT Bryan Iverson MD POINT OF CARE TEST O EVITA Performing Organization Address [facility] Co de Phone Number [employer] Strategic Funding Source * POCT GLUCOSE (06/14/2012 4:57 PM EDT) Glucose, POC 119 60 - 199 mg/dL [facility] [employer] [facility] Comment: Supplemental ranges: <110 mg/dL before meals <200 mg/dL all other times of the day Blood specimen (specimen) 06/14/2012 4:57 PM EDT 06/14/2012 4:57 PM EDT Bryan Iverson MD POINT OF CARE TEST O EVITA [employer] Strategic Funding Source * Echo Transthoracic (Complete) (06/14/2012 4:00 PM EDT) EF 65 HEART[facility] SYSTEM Anatomical Region Laterality Modality Other 06/14/2012 Narrative 06/14/2012 4:26 PM EDT Amended Report Procedure: ? Transthoracic Echocardiogram Patient: ? LAQUITA Pop ?(Age): 1965(47) Med Rec#: ?[id number] ? Sex: ?M ? Site Loc: ?[facility] ? Ht / Wt: ??176(cm)/114(kg) Pt. Loc: ? Adult Floor ?BSA: ?2.36 Study Date: ?06/14/2012 ? Pt. Type: Inpatient Tape: ? Referring: Bryan Iverson ([id number]) Referring: STEPHANIE WILLIAM I Rehab Nurse: Juan Haley [facility] Diagnosis: ??Chest pain (786.50) CPT Code(s): ??Echo LTD (28807), ??Definity (44645XI), Indication(s): ??Chest Pain Rhythm: SUMMARY: 1. Technically [...] ? Mid-Inferior ?Normal ? Mid-Inferoseptal ?Normal ? Troutman-Septal ? Normal ? Troutman-Anterior ? Normal ? Troutman-Lateral ?Normal ? Troutman-Inferior ? Normal ? Troutman-Tip ?Normal ? Chambers ?Value ?Units (Range) ? [...] 06/14/2012 16:26:31 Images reviewed and interpretation verified [facility] Cardiac Ultrasound Laboratory Procedure Note Cali Shannon MD - 06/14/2012 Amended Report Procedure: Transthoracic Echocardiogram Patient: LAQUITA Pop DOB(Age): 1965(47) Med Rec#: [id number] Sex: M Site Loc: [facility] Ht / Wt: 176(cm)/114(kg) Pt. Loc: Adult Floor BSA: 2.36 Study Date: 06/14/2012 Pt. Type: Inpatient Tape: Referring: Bryan IversonNatalie ([id number]) Referring: STEPHANIE WILLIAM I Rehab Nurse: Juan Haley [facility] Diagnosis: Chest pain (786.50) CPT Code(s): Echo LTD (99720), Definity (80910PH), Indication(s): Chest Pain Rhythm: SUMMARY: 1. Technically [...] Normal Mid-Posterolateral Normal Mid-Inferior Normal Mid-Inferoseptal Normal Troutman-Septal Normal Troutman-Anterior Normal Troutman-Lateral Normal Troutman-Inferior Normal Troutman-Tip Normal Chambers Value Units (Range) LV EF Est 65 % (55 to 80) IVSd 2D 0.9 cm LVIDd 2D 4.6 cm PWd 2D 1 cm LVIDs 2D 3.1 cm LVFS 2D 32 % This report has been electronically signed by: Cali Shannon MD 06/14/2012 16:26:31 Images reviewed and interpretation verified [facility] Cardiac Ultrasound Laboratory Bryan Iverson MD [...] [facility] [place] Troponin-T <0.03 <=0.03 ng/mL [facility] [employer] Comment: 0.03 ng/mL: Represents the 99th percentile upper reference limit for normals. >0.03 ng/mL: Elevated cardiac troponin T level indicative of myocardial damage. Diagnosis of acute, evolving or recent PR requires a typical rise and gradual fall [...] consensus document of the Joint Society of Cardiology/[place] College of Cardiology Committee for the redefinition of myocardial infarction. Journal of the [place] College of Cardiology 2000; 36: 959-969] Creatine Kinase 48 0 - 200 unit/L [facility] Strategic Funding Source Blood specimen (specimen) 06/14/2012 2:38 PM EDT 06/14/2012 3:04 PM EDT Narrative Resulting Agency Comment Spec In Lab Bryan Iverson MD CHEMISTRY ORDERABLES Performing Organization Address [facility] Phone Number [facility]ANG [place] * APTT (06/14/2012 2:38 PM EDT) Pathologist [facility] Partial Thromboplastin Time 26 25 - [address] [facility]ITALANNABEL JENSENPacific Light Technologies Comment: Recommended therapeutic PTT range for full dose unfractionated heparin is 80-114 seconds. Blood specimen (specimen) 06/14/2012 2:38 PM EDT 06/14/2012 3:04 PM EDT Narrative Resulting Agency Comment Spec In Lab Bryan Iverson MD HEMATOLOGY ORDERABLE S Performing Organization Address [facility] Co de Phone Number [facility] * Prothrombin Time (06/14/2012 2:38 PM EDT) Prothrombin Time 13.3 11.9 - 14.7 sec CERNER MILLENNIUM Comment: [facility] Transfusion Committee Guidelines: INR less than [...] BMP w/fasting Glucose (06/14/2012 2:38 PM EDT) [facility] Signature Glucose Fasting 117(H) 65 - [...] of Diabetes Mellitus, Position Statement from the [place] Diabetes Association. ??Diabetes Care, Volume 33, Supplement [...] Lab Bryan Iverson MD CHEMISTRY ORDERABLES [facility] * EKG 12 Lead (06/14/2012 2:27 PM EDT) Ventricular rate 91 BPM MUSE SYSTEM Atrial Rate 91 BPM MUSE SYSTEM P-R Interval 134 ms MUSE SYSTEM QRS Duration 84 ms MUSE SYSTEM Q-T Interval 348 ms MUSE SYSTEM QTC Calculated (Bezet) 428 ms MUSE SYSTEM Calculated P [place] 6 degrees MUSE SYSTEM Calculated R [place] 29 degrees MUSE SYSTEM Calculated T [place] 25 degrees MUSE SYSTEM INTERPRETATION Normal sinus [...] Coronary atherosclerosis of unspecified type of vessel, [place] or graft Smoker Tobacco use disorder Dyslipidemia [...] than 145 sec X 2 - call hotel houseman See Bolus dosing guidance for aPTT values [...] - Reason: Contraindicated)1641 (Given - Provider: Brooke oRdriguez, VERO) potassium chloride (K-DUR/KLOR-CON) extended release tablet [...] than 145 sec X 2 - call hotel houseman See Bolus dosing guidance for aPTT values less than 80 seconds under PRN medications, Routine 1550 (New Bag - Provider: Brooke Rodriguez RN)2203 (Rate/Dose Change - Provider: Brooke Rodriguez RN - Comment: PTT 33) 0038 (Rate/Dose Verify - Provider: Karishma Malagon RN)0315 (Rate/Dose Change - Provider: Karismha Malagon RN) sodium chloride 0.9% infusion (CANCELED) 150 mL/hr, Intravenous, CONTINUOUS, Starting on Thu06/14/12 at 1530, Until Thu06/15/12 at 0821 1550 (New Bag - Provider: Brooke Rodriguez RN)2220 (New Bag - Provider: Brooke Rodriguez RN) 0038 (Rate/Dose Verify - Provider: Karishma Malagon RN)0508 (New Bag - Provider: Karishma Malagon [phone] (Stopped - Provider: Karishma Malagon RN - Comment: per MD aviation neuropsychologist, hold for now) PRN Medication Order 06/13/2012 [...] Routine documented in this encounter Care Teams Dye Reel Operator Relationship Specialty Start Date End Date Sarita Lim MD [address] [place] [address] PCP - General 07/16/10 documented as of this encounter
--- OUTSIDE RECORDS SUMMARY | 2024-08-19 14:56 | XMS_ITS | Encounter Summary ---
Author Organization [facility] Address [address] [place] [address] Care Team Providers Care Architectural Representative Name Role Phone Coni Lim MD Primary Care Provider [phone] Reason for Visit * Auth/Cert (Routine) Specialty Diagnoses / Procedures Referred By Contsigifredo t Referred To Contact Diagnoses Encephalopathy Seizures Referral ID Status Reason Start Date Expiration Date Visits Re quested Visits Authorized [id number] 1 1 Encounter Details Date Type Department Care Team (Late st Contact Info) Description 04/07/2023 23:45 EDT - 04/09/2023 13:45 EDT Hospital Encounter [place] [address] General Medicine Telemetry Unit [address] [place], [place] [id number] Gillian Randolph MD [address] [facility], Level 5 [place] [phone] Park Coe MD MPH [address] [phone] Acute respiratory failure with hypoxia (HCC-CMS); Cerebrovascular [...] 04/08/2023 ??? Acute respiratory failure with hypoxia ([facility]) ([facility]) 04/08/2023 ??? Idiopathic hypotension 04/08/2023 ??? Anxiety and depression 02/22/2014 ??? Unstable angina ([facility]) ([facility]) 02/15/2014 ??? CAD (coronary artery disease) 02/15/2014 ??? CVA (cerebral vascular accident) ([facility]) 03/15/2015 Resolved Hospital Problems No resolved problems to display. Transition of care: [facility] Transition of Care report automatically routed to PCP office on discharge.Additional handoff communication performed via: Fax Clinical Issues Needing Follow-up 1. 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 Recommended follow-up tests/procedures [...] admitted to the MICU from [facility] after being found down and unresponsive. His found him down outside after he went out to mow the lawn. At [facility] he was found to have a GCS of 3 and was intubated for airway protection. He underwent CT head and CT angio head/neck out of concern for midbrain or pontine stroke, both of which were unrevealing. He was transferred to the [facility] MICU for further management of his [...] 35 Minutes Park Coe MD MPH [facility] Inpatient Service 04/09/2023 14:33 documented in this [...] accessing necessary care and/or follow-up after discharge. 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 Presented to [facility] after being found down by . Was seen ~30min prior while mowing the lawn. In ED pt intubated for airway protection. Transfer to [facility] MICU. Was able to quickly extubated [...] 04/08/23 * Leigha Welsh RN - 04/08/2023 0545 EDT FOUR EYES SKIN ASSESSMENT Four Eyes [...] LDA for any identified wounds ??? Add [place] image for any suspected PI or non surgical wounds ??? Order wound consult if suspected PI identified ? ? If Anibal is < or = to 16, initiate Pressure Injury Prevention Bundle ([id number]). 04/08/2023 5:48 * Martha Randall RT - 04/07/2023 2350 EDT Respiratory Progress Note Indications for Respiratory therapy: Mechanical Ventilation Data Vitals: Heart Rate: 78 BPM, Resp: 16, SpO2: 97 % FIO2/O2 Device: , , O2 Device: Intubated, FIO2 %: 30 % RT Orders: Continuous RT Orders (From admission, onward) Start Ordered 04/08/23 0500 Mechanical Ventilation-Invasive [[id number]] RT Continuous Discontinue References: ARDS/ALI Protocol Post Op Protocol Weaning Protocol ETCO2 Protocol Question Answer Comment Mode: Assist Control Control Type: Volume Control VT (mL) 510 Set Rate (f/min) 16 Peep (cm H2O) 5 Autoflow: Yes Protocols: Weaning ETCO2 Protocol: Yes 04/08/23 0023 Active Orders Action/Events Respiratory events; Pt transferred from [facility], received report from Transport Team. Pt [...] 1 Patient was admitted from: Outside Hospital: [facility] The patient is a [...] prior symptoms May follow with neurologist in [facility]? #History of CVA - as above [...] [facility] after being found down and unresponsive. His found him down outside after he went out to mow the lawn. At [facility] he was found to have a GCS of 3 and was intubated for airway protection. He underwent CT head and CT angio head/neck out of concern for midbrain or pontine stroke, both of which were unrevealing. He was transferred to the [facility] MICU for further management of his depressed mental status. Collateral obtained from patient's : Patient was in normal state of health. Went out to [place] and then mow the lawn. Was seen [...] No known supplements. Only recent travel to [facility]. No known possible toxic ingestions. [...] sinus rhythm, rate 81, normal axis, normal IN interval, normal QTc Brandon Denny, MS4 Signed, [...] Problem: Encephalopathy Active Problems: Unstable angina (HCC-CMS) ([facility]) CAD (coronary artery disease) Anxiety and depression Acute respiratory failure with hypoxia (HCC-CMS) ([facility]) Idiopathic hypotension CVA (cerebral vascular accident) ([facility]) Critical Care time was provided in the [...] Care - Aiyana Almonte RN - 04/09/2023 4490 EDT Data: VSS on RA. AOX3. No [...] LDA for any identified wounds ??? Add [place] image for any suspected PI or non surgical wounds ??? Order wound consult if suspected PI identified ? ? If Anibal is < or = to 16, initiate Pressure Injury Prevention Bundle ([id number]). 04/08/2023 19:39 * Plan of Care - Katarzyna Young RN - 04/08/2023 1847 EDT Data: assumed care of pt @ [...] room air. Denies pain. Transportedvia wheelchair to [place] [id number] by RN. Report endorsed to Steffanie PHAM [...] Keenan Laws MD - 04/08/2023 1821 EDT [facility] Medicine Transfer Summary Service Date: 04/08/2023 Admit Date: 04/08/23 Primary Care Provider: Coni Lim Chief Complaint: Syncope HPI Romeo Coelho is a 57 y.o. male with a PMHx of CAD s/p prior PCI and prior CVA, DM2, HLD who presented as a transfer from [facility] on 04/07/2023 intubated and sedated for airway protection after being brought to [facility] via EMS for syncope. Per records, the patient's story is consistent with feeling tired and dehydrated prior to the event, his first of this kind. Eval prior to arrival at the [facility] MICU included head and neck imaging [...] Depression ??? DMII (diabetes mellitus, type 2) ([facility]) ??? Fibromyalgia ??? Gout ??? [...] above interpretation and agree with the findings. [id number] Assessment Romeo Coelho is a 57 y.o. [...] daily in AM Metop 50 tartrate BID (SOLID WASTE TECHNICIAN 200mg Succ) Mood Fibromyalgia Bupropion 150mg BID Cymbalta 60mg BID Gabapentin 800mg BID Topiramate 25mg GERD SOLID WASTE TECHNICIAN PPI Restless Leg Pramipexole SOLID WASTE TECHNICIAN DM SSI VTE Prophylaxis Ambulate Code: Full [...] DM2, HTN, neuropathy and gout, transferred to [facility] MICU from [facility] on 04/07/23 after a syncopal event that occurred after he had mowed his lawn.Per records from [facility], he was found down by his and brought to [facility] via EMS. He was started onPropofol [...] or cardiac symptoms. Evaluation for stroke and OK (inc troponins and TTE) was unrevealing. Of note his U tox is positive for Benzos, Fentanyl and Cannabis. He acknowledges regular marijuana use (it is prescribed to me) and reports having a niece who struggles with an opiate use disorder,but denies using drugs other than marijuana. Available records from [facility] do not reveal evidence that these drugs were administered there (or here). I shared this information with him but he again reports using marijuana only. Will monitor on tele overnight and likely DC home tomorrow. ?? Keenan Laws MD * Plan of Care - Rick Cuellar MD - 04/08/2023 4106 EDT Plan of Care Note Patient admitted overnight to MICU, intubated from [facility]. Patient briefly on pressors and propofol which [...] Patient will likely be transferred to the [facility] medicine as he no longer requires [...] EDT) 04/14/2023 7:42 EDT us Scan 2 Data Librarian PROCEDURE/MINOR SURGICAL OR DERABLES Final Result * ECG REPORT - SCANNED (04/13/2023 13:22 EDT) 04/13/2023 13:2 2 EDT us Scan 2 Data Librarian PROCEDURE/MINOR SURGICAL OR DERABLES Final Result * BETA HYDROXYBUTYRATE (04/09/2023 12:15 EDT) Beta Hydroxybutyrate <0.1 <0.4 mmol/L 04/09/2023 12:48 EDT [facility] Blood VENOUS BLOOD / Unknown Venipuncture / Unknown 04/09/2023 12:15 EDT 04/09/2023 12:24 EDT us Keeley Quiroz PA-C CHEMISTRY & BLOOD GAS ORD ERABLES Final Result [facility] [address] [place] [address] * (ABNORMAL) BASIC METABOLIC PANEL (BMP) (04/09/2023 12:15 EDT) Sodium 140 136 - 145 mmol/L 04/09/2023 12:42 EDT [facility] Potassium 3.7 3.5 - 5.0 mmol/L 04/09/2023 12:42 T [facility] Chloride 110 96 - 110 mmol/L 04/09/2023 12:42 EDT [facility] CO2 Total 19(L) 22 - 32 mmol/L 04/09/2023 12:42 [facility] Anion Gap 11 5 - 14 mmol/L 04/09/2023 12:42 [facility] Glucose 122(H) 70 - 99 mg/dl 04/09/2023 12:42 T [facility] Calcium 8.8 8.5 - 10.5 mg/dL 04/09/2023 12:42 EDT [facility] BUN 11 10 - 26 mg/dL 04/09/2023 12:42 EDT [facility] Creatinine 0.68 0.66 - 1.25 mg/dL 04/09/2023 12:42 EDT [facility] eGFR 110 >60 mL/min/1.73 m2 04/09/2023 12:42 EDT [facility] Blood VENOUS BLOOD / Unknown Venipuncture / Unknown 04/09/2023 12:15 EDT 04/09/2023 12:24 EDT Keeley CARPENTERC CHEMISTRY & BLOOD GAS ORD ERABLES Final Result Performing Organization Address City/[facility]/ZIP Co de Phone Number [facility] [address] [place] [address] * LACTIC ACID (04/09/2023 12:14 EDT) Lactic Acid 0.9 <=2.0 mmol/L 04/09/2023 12:53 EDT [facility] Blood VENOUS BLOOD / Unknown Venipuncture / Unknown 04/09/2023 12:14 EDT 04/09/2023 12:25 EDT us Keeley Quiroz PA-C CHEMISTRY & BLOOD GAS ORD ERABLES Final Result Performing Organization Address City/[facility]/ZIP Co de Phone Number [facility] [address] [place] [address] * (ABNORMAL) BASIC METABOLIC PANEL (BMP) (04/09/2023 9:30 EDT) Sodium 140 136 - 145 mmol/L 04/09/2023 11:13 EDT [facility] Potassium 3.7 3.5 - 5.0 mmol/L 04/09/2023 11:13 EDT [facility] Comment:Slight hemolysis christo ntified, interpret with caution as hemolysis will elevate potassium result. Chloride 110 96 - 110 mmol/L 04/09/2023 11:13 [facility] CO2 Total 15(L) 22 - 32 mmol/L 04/09/2023 11:13 [facility] Anion Gap 15(H) 5 - 14 mmol/L 04/09/2023 11:13 [facility] Glucose 203(H) 70 - 99 mg/dl 04/09/2023 11:13 [facility] Calcium 8.8 8.5 - 10.5 mg/dL 04/09/2023 11:13 [facility] BUN 12 10 - 26 mg/dL 04/09/2023 11:13 [facility] Comment: Slight hemolysis identified, interpret with caution as results may be affected due to hemolysis. Creatinine 0.78 0.66 - 1.25 mg/dL 04/09/2023 11:13 [facility] eGFR 105 >60 mL/min/1.7 3m2 04/09/2023 11:13 [facility] Blood VENOUS BLOOD / Unknown Venipuncture / Unknown 04/09/2023 9:30 EDT 04/09/2023 10:39 EDT us Memo Odonnell MD CHEMISTRY & BLOOD GAS ORDERABLE S Final Result [facility] [address] [place] [address] * (ABNORMAL) COMPLETE BLOOD COUNT (04/09/2023 9:30 EDT) WBC 8.85 4.00 - 10.40 K/cmm 04/09/2023 10:47 [facility] RBC 4.69 4.36 - 5.78 M/cmm 04/09/2023 10:47 [facility] Hemoglobin 13.9 13.8 - 17.3 g/dL 04/09/2023 10:47 [facility] HCT 40.9 39.5 - 50.2 % 04/09/2023 10:47 [facility] MCV 87 81 - 95 fL 04/09/2023 10:47 [facility] MCH 29.6 27.6 - 33.0 pg 04/09/2023 10:47 EDT [facility] MCHC 34.0 32.8 - 36.4 g/dL 04/09/2023 10:47 EDT [facility] RDW-CV 14.1 <14.2 % 04/09/2023 10:47 EDT [facility] RDW-SD 45.1 <46.0 fl 04/09/2023 10:47 EDT [facility] PLT 137(L) 141 - 377 K/cmm 04/09/2023 10:47 EDT [facility] MPV 11.8 9.5 - 12.7 fL 04/09/2023 10:47 EDT [facility] Blood VENOUS BLOOD / Unknown Venipuncture / Unknown 04/09/2023 9:30 EDT 04/09/2023 10:39 EDT us Memo Odonnell MD HEMATOLOGY & PF4 ORDERABLES Fin al Result Performing Organization Address City/[facility]/ZIP Co de Phone Number [facility] [address] [place] [address] * (ABNORMAL) POCT GLUCOSE, INTERFACED (04/09/2023 8:25 EDT) Glucose, POC 154(H) 70 - 100 mg/dL 04/09/2023 8:26 EDT [facility] HN LAB POC COMMENT (GLUCOSE) Test Performed by Nursing Services 04/09/2023 8:26 EDT [facility] Blood CAPILLARY BLOOD / Unknown 04/09/2023 8:25 EDT 04/09/2023 8:26 EDT us Abdi Peoples POINT OF CARE TEST ORDERABLES Fi nal Result Performing Organization Address City/[facility]/ZIP Co de Phone Number [facility] [address] [place] [address] * (ABNORMAL) POCT GLUCOSE, INTERFACED (04/08/2023 20:50 EDT) Glucose, POC 128(H) 70 - 100 mg/dL 04/08/2023 20:51 EDT [facility] HN LAB POC COMMENT (GLUCOSE) Test Performed by Nursing Services 04/08/2023 20:51 EDT [facility] Blood CAPILLARY BLOOD / Unknown 04/08/2023 20:50 EDT 04/08/2023 20:51 EDT us Gillian Randolph MD POINT OF CARE TEST ORDERAB LES Final Result Performing Organization Address City/[facility]/ZIP Co de Phone Number [facility] [address] [place] [address] * (ABNORMAL) POCT GLUCOSE, INTERFACED (04/08/2023 18:11 EDT) Glucose, POC 131(H) 70 - 100 mg/dL 04/08/2023 18:12 EDT [facility] HN LAB POC COMMENT (GLUCOSE) Test Performed by Nursing Services 04/08/2023 18:12 EDT [facility] Blood CAPILLARY BLOOD / Unknown 04/08/2023 18:11 EDT 04/08/2023 18:12 EDT us Rick Cuellar MD POINT OF CARE TEST ORDERABL ES Final Result Performing Organization Address [facility]/ZIP Co de Phone Number [facility] [address] [place] [address] * ECG REPORT - SCANNED (04/08/2023 14:56 EDT) 04/08/2023 14:5 6 EDT us Scan 2 Data Librarian PROCEDURE/MINOR SURGICAL OR DERABLES Final Result * (ABNORMAL) POCT GLUCOSE, INTERFACED (04/08/2023 12:37 EDT) Glucose, POC 115(H) 70 - 100 mg/dL 04/08/2023 12:39 EDT [facility] HN LAB POC COMMENT (GLUCOSE) Test Performed by Nursing Services 04/08/2023 12:39 EDT [facility] Blood CAPILLARY BLOOD / Unknown 04/08/2023 12:37 EDT 04/08/2023 12:39 EDT us Gillian Randolph MD POINT OF CARE TEST ORDERAB LES Final Result [facility] [address] [place] [address] * TRANSTHORACIC ECHO (TTE) COMPLETE W/DOPPLER W/CF [...] Pulmonic valve mean velocity, S 1 cm/s [facility] Ascending aorta ID, [...] color Doppler.The study was interpreted by [facility]. Pertinent images and [...] 7.38 7.31 - 7.41 04/08/2023 5:15 EDT [facility] pCO2, Venous, i-STAT 29(L) 41 - 51 mmHg 04/08/2023 5:15 EDT [facility] pO2, Venous, i-STAT 57(H) 30 - 50 mmHg 04/08/2023 5:15 T [facility] TCO2, Venous, i-STAT 18(L) 22 - 28 mmol/L 04/08/2023 5:15 T [facility] O2 Saturation, Venous, i-STAT 89(H) 60 - 85 % 04/08/2023 5:15 T [facility] Base Excess(+) / Deficit(-), Venous, i-STAT -7(L) -2 - 3 mmol/L 04/08/2023 5:15 [facility] Blood VENOUS BLOOD / Unknown 04/08/2023 5:11 EDT 04/08/2023 5:15 EDT Narrative [facility] - 04/08/2023 5:15 EDT Test Performed by Respiratory us Antonio Majano POINT OF CARE TEST ORDERABLES Fi nal Result [facility] [address] [place] [address] * XR FEEDING TUBE PLACEMENT (04/08/2023 1:45 [...] above interpretation and agree with the findings. [id number] Procedure Note Ramirez Mendez MD - 04/08/2023 [...] the above interpretation andagree with the findings. [id number] us Ac Fish MD IMG DIAGNOSTIC IMAGING [...] above interpretation and agree with the findings. [id number] Narrative 04/08/2023 8:53 EDT XR CHEST PORTABLE [...] the above interpretation andagree with the findings. [id number] Antonio Majano [facility]AG[facility] ORDERABLE S Final Result * (ABNORMAL) FENTANYL AND METABOLITE CONFIRMATION PANEL (04/08/2023 1:22 EDT) Fentanyl Confirmation >40(A) <2 ng/mL 04/09/2023 10:36 EDT [facility] Norfentanyl Confirmation 49(A) <10 ng/mL 04/09/2023 10:36 EDT [facility] Urine URINE / Unknown Urine Collect / Unknown 04/08/2023 1:22 EDT 04/08/2023 1:28 EDT Narrative [facility] - 04/09/2023 10:36 EDT Testing performed by: [facility] [address], [address], [place] [address] Heel Cover Softener: Marco Morocho MD; CLIA # [id number] Antonio Majano GEN LAB UNIT COLLECT ORDERABLES Final Result [facility] [address] [place] [address], [address] [place] [address], [facility] [phone] * CK (04/08/2023 1:22 EDT) CK 82 <=250 U/L 04/08/2023 4:29 EDT [facility] Blood VENOUS BLOOD / Unknown Venipuncture / Unknown 04/08/2023 1:22 EDT 04/08/2023 1:28 EDT Antonio Majano CHEMISTRY & BLOOD GAS ORDERABLES Final Result [facility] [address] [place] [address] * MAGNESIUM (04/08/2023 1:22 EDT) Magnesium 2.0 1.7 - 2.8 mg/dL 04/08/2023 2:08 EDT [facility] Blood VENOUS BLOOD / Unknown Venipuncture / Unknown 04/08/2023 1:22 EDT 04/08/2023 1:28 EDT Gillian Randolph MD CHEMISTRY & BLOOD GAS ORDE RABLES Final Result [facility] [address] [place] [address] * (ABNORMAL) POCT GLUCOSE, INTERFACED (04/08/2023 1:22 EDT) [facility] Glucose, POC 151(H) 70 - 100 mg/dL 04/08/2023 1:23 EDT [facility] HN LAB POC COMMENT (GLUCOSE) Test Performed by Nursing Services 04/08/2023 1:23 EDT [facility] Blood CAPILLARY BLOOD / Unknown 04/08/2023 1:22 EDT 04/08/2023 1:23 EDT Gillian Randolph MD POINT OF CARE TEST ORDERAB LES Final Result [facility] [address] [place] [address] * MRSA PCR (04/08/2023 1:22 EDT) [facility] MRSA/Staph aureus Result Staphylococcus aureus detected by PCR (MRSA NOT detected) 04/08/2023 10:57 EDT [facility] Swab BOTH ANTERIOR NARES / Unknown Swab / Unknown 04/08/2023 1:22 EDT 04/08/2023 1:44 EDT Antonio Majano MICROBIOLOGY - GENERAL ORDERABLE S Final Result Performing Organization Address City/[facility]/ZIP Co de Phone Number [facility] [address] [place] [address] * (ABNORMAL) POLYSUBSTANCE USE PANEL, URINE (04/08/2023 1:22 EDT) [facility] Buprenorphine Screen, Urine Negative <5 ng/mL 04/08/2023 11:51 EDT [facility] Oxycodone Screen, Urine Negative <100 ng/mL 04/08/2023 11:51 EDT [facility] Cotinine Screen, Urine Negative <500 ng/mL 04/08/2023 11:51 EDT [facility] Benzodiazepines Screen, Urine Positive(A) <200 ng/mL 04/08/2023 11:51 EDT [facility] Amphetamines Screen, Urine Negative <1000 ng/mL 04/08/2023 11:51 EDT [facility] Cocaine Metabolite Screen, Urine Negative <150 ng/mL 04/08/2023 11:51 EDT [facility] THC Metabolites Screen, Urine Positive(A) <50 ng/mL 04/08/2023 11:51 EDT [facility] Barbiturates Screen, Urine Negative <200 ng/mL 04/08/2023 11:51 EDT [facility] Opiates Screen, Urine Negative <300 ng/mL 04/08/2023 11:51 EDT [facility] Alcohol Metabolite (EtG) Screen, Urine Negative <500 ng/mL 04/08/2023 11:51 EDT [facility] Methadone Screen, Urine Negative <300 ng/mL 04/08/2023 11:51 EDT [facility] Fentanyl Screen with Reflex to Confirmation, U Positive(A) <1 ng/mL 04/08/2023 11:51 EDT [facility] Comment: Trazodone is known to cross react with the Fentanyl immunoassay and may cause a false positive Urine URINE / Unknown Urine Collect / Unknown 04/08/2023 1:22 EDT 04/08/2023 1:28 EDT Narrative [facility] - 04/08/2023 11:51 EDT Testing performed by: [facility] [address] [place] [address], [facility] [address] [address] Heel Cover Softener: Marco Morocho MD; CLIA # [id number] Antonio MAURER LAB UNIT COLLECT ORDERABLES Final Result [facility] [address] [place] [address], [facility] [address] [phone] * FIBRINOGEN (04/08/2023 1:22 EDT) [facility] Signature Fibrinogen 323 171 - 384 mg/dL 04/08/2023 1:53 EDT [facility] Blood VENOUS BLOOD / Unknown Venipuncture / Unknown 04/08/2023 1:22 EDT 04/08/2023 1:32 EDT [employer] HEMATOLOGY & PF4 ORDERABLES Val l Result [facility] [address] [place] [address] * PROTIME (04/08/2023 1:22 EDT) [facility] I.N.R. 1.1 0.9 - 1.1 Ratio 04/08/2023 1:53 EDT [facility] Pro Time 12.0 9.7 - 12.8 secs 04/08/2023 1:53 EDT [facility] Blood VENOUS BLOOD / Unknown Venipuncture / Unknown 04/08/2023 1:22 EDT 04/08/2023 1:32 EDT Narrative [facility] - 04/08/2023 1:53 EDT Moderate Intensity Coumadin INR = 2.0-3.0 Adjustments in anticoagulant therapy dose should be based on the INR and NOT on the Protime. [employer] HEMATOLOGY & PF4 ORDERABLES Val l Result Performing Organization Address City/[facility]/ZIP Co de Phone Number [facility] [address] [place] [address] * ETHANOL, BLOOD (04/08/2023 1:22 EDT) [facility] Ethanol, Blood <10 <10 mg/dL mg/dL 04/08/2023 1:52 EDT [facility] Comment:Healthy, non-drinkin g individuals will have an ethanol concentration of <10 mg/dL. Blood VENOUS BLOOD / Unknown Venipuncture / Unknown 04/08/2023 1:22 EDT 04/08/2023 1:28 EDT [employer] CHEMISTRY & BLOOD GAS ORDERABLES Final Result [facility] [address] [place] [address] * TSH (04/08/2023 1:22 EDT) [facility] TSH 0.61 0.47 - 4.68 mIU/L 04/08/2023 2:25 EDT [facility] Blood VENOUS BLOOD / Unknown Venipuncture / Unknown 04/08/2023 1:22 EDT 04/08/2023 1:28 EDT Narrative [facility] - 04/08/2023 2:25 EDT The results of this assay can be falsely lowered due to the consumption of Biotin. [employer] CHEMISTRY & BLOOD GAS ORDERABLES Final Result Performing Organization Address [facility]/ZIP Co de Phone Number [facility] [address] [place] [address] * NT PRO BNP (04/08/2023 1:22 EDT) NT-pro BNP <20 <299 pg/mL 04/08/2023 2:04 EDT [facility] Comment: In the acute setting NT-proBNP values <300 pg/mL have a 98% NPV for excluding acute heart failure. In outpatient populations, NT-proBNP values <125 have a 99% NPV for excluding heart failure. Blood VENOUS BLOOD / Unknown Venipuncture / Unknown 04/08/2023 1:22 EDT 04/08/2023 1:28 EDT [employer] CHEMISTRY & BLOOD GAS ORDERABLES Final Result Performing Organization Address [facility] Co de Phone Number [facility] [address] [place] [address] * (ABNORMAL) COMPREHENSIVE METABOLIC PANEL (CMP) (04/08/2023 1:22 EDT) Sodium 144 136 - 145 mmol/L 04/08/2023 1:52 EDT [facility] Potassium 3.8 3.5 - 5.0 mmol/L 04/08/2023 1:52 EDT [facility] Chloride 111(H) 96 - 110 mmol/L 04/08/2023 1:52 EDT [facility] CO2 Total 19(L) 22 - 32 mmol/L 04/08/2023 1:52 [facility] Glucose 152(H) 70 - 99 mg/dl 04/08/2023 1:52 [facility] BUN 10 10 - 26 mg/dL 04/08/2023 1:52 [facility] Creatinine 0.92 0.66 - 1.25 mg/dL 04/08/2023 1:52 [facility] eGFR 98 >60 mL/min/1.7 3m2 04/08/2023 1:52 [facility] Total Protein 6.2(L) 6.3 - 8.2 g/dL 04/08/2023 1:52 [facility] Albumin 3.7 3.4 - 4.9 g/dL 04/08/2023 1:52 [facility] Alkaline Phosphatase 53 38 - 126 U/L 04/08/2023 1:52 [facility] AST 25 15 - 46 U/L 04/08/2023 1:52 [facility] ALT 18 <50 U/L 04/08/2023 1:52 [facility] Bilirubin, Total <0.5 <1.4 mg/dL 04/08/20 23 1:52 [facility] Calcium 8.5 8.5 - 10.5 mg/dL 04/08/2023 1:52 [facility] Albumin/Globulin Ratio 1.5 1.0 - 2.5 g/dL 04/08/2023 1:52 [facility] Anion Gap 14 5 - 14 mmol/L 04/08/2023 1:52 [facility] Blood VENOUS BLOOD / Unknown Venipuncture / Unknown 04/08/2023 1:22 EDT 04/08/2023 1:28 EDT us Antonio Majaon CHEMISTRY & BLOOD GAS ORDERABLES Final Result [facility] [address] [place] [address] * (ABNORMAL) COMPLETE BLOOD COUNT (04/08/2023 1:22 EDT) WBC 13.25(H) 4.00 - 10.40 K/cmm 04/08/2023 1:37 T [facility] RBC 4.61 4.36 - 5.78 M/cmm 04/08/2023 1:37 [facility] Hemoglobin 13.2(L) 13.8 - 17.3 g/dL 04/08/2023 1:37 [facility] HCT 40.8 39.5 - 50.2 % 04/08/2023 1:37 [facility] MCV 89 81 - 95 fL 04/08/2023 1:37 [facility] MCH 28.6 27.6 - 33.0 pg 04/08/2023 1:37 [facility] MCHC 32.4(L) 32.8 - 36.4 g/dL 04/08/2023 1:37 [facility] RDW-CV 14.5(H) <14.2 % 04/08/2023 1:37 [facility] RDW-SD 46.4(H) <46.0 fl 04/08/2023 1:37 [facility] PLT 203 141 - 377 K/cmm 04/08/2023 1:37 [facility] MPV 10.3 9.5 - 12.7 fL 04/08/2023 1:37 [facility] Blood VENOUS BLOOD / Unknown Venipuncture / Unknown 04/08/2023 1:22 EDT 04/08/2023 1:28 EDT us Antonio Majano HEMATOLOGY & PF4 ORDERABLES Val l Result [facility] [address] [place] [address] * EKG 12-LEAD (04/08/2023 0:23 EDT) 04/08/2023 0:23 EDT Narrative [facility] - 04/08/2023 14:50 EDT ? [facility] ? Test Date: ?2023-04-08 Pat Name: ? ROMEO COELHO ?Department: ?? MICU ? Room: ? M412 Gender: ? Male ? [employer]: ?? : ?1965 ? Requested By: TRINA SINGH Order Number: [id number] ? Reading MD: ?? AHMED HARHASH MD ? Measurements Intervals ?[place] ? Rate: ? 81 ? P: ?29 IN: ? 153 ?QRS: ?33 QRSD: ? 98 [...] Date: 2023-04-08 Pat Name: ROMEO COELHO [facility] Gender: Male [employer]: : 1965 Requested By: TRINA SINGH Order Number: [id number] Tiarra MD: BRANDO LAYNE MD Measurements Intervals [place] Rate: 81 P: 29 IN: 153 QRS: 33 QRSD: 98 T: 41 QT: 362 QTc: 422 Interpretive Statements SINUS RHYTHM I reviewed the tracing and have either agreed or edited the findings inthis report. Electronically Signed On 04-08-2023 14:50:57 EDT by BRANDO BARRAZA. us Antonio Majano CARDIAC ECG ORDERABLES Final Res ult [facility] documented in this encounter Visit Diagnoses Diagnosis Encephalopathy- Primary Encephalopathy, unspecified Acute respiratory failure with hypoxia (HCC-CMS) Acute respiratory failure Cerebrovascular accident (CVA), unspecified mechanism (HCC-CMS) Encephalopathy Encephalopathy, unspecified Syncope, unspecified syncope type Acute respiratory failure with hypoxia (HCC-CMS) Acute respiratory failure Unstable angina (HCC-CMS) (HCC) Intermediate coronary syndrome CAD (coronary artery disease) Coronary atherosclerosis of unspecified type of vessel, [place] or graft Anxiety and depression Dysthymic disorder CVA (cerebral vascular accident) ([facility]) Unspecified cerebral artery occlusion with [...] 03/24 documented in this encounter Care Teams Architectural Representative Relationship Specialty Start Date End Date Coni Lim MD [address] [place] [address] PCP - General 12/17/11 documented as of this encounter
--- OUTSIDE RECORDS SUMMARY | 2024-08-19 14:56 | XMS_ITS | Encounter Summary ---
Author Organization [facility] Address [address] [place] [address] Care Team Providers Care Luncheonette Manager Name Role Phone Coni Lim MD Primary Care Provider [phone] Encounter Details Date Type Department Care Team [...] on filedocumented in this encounter Care Teams Luncheonette Manager Relationship Specialty Start Date End Date Coni Lim MD [address] [place] [id number] PCP - General 12/17/11 documented as of this encounter
--- OUTSIDE RECORDS SUMMARY | 2024-08-19 14:56 | XMS_ITS | Encounter Summary ---
[place] [address] Care Team Providers Care Retail Merchandiser Name Role Phone Coni Lim MD Primary Care Provider [phone] Encounter Details Date Type Department Care Team (Late st Contact Info) Description 05/28/2012 Telephone Cardiology at [address] [phone] Savanah Duncan LPN Social History Tobacco Use [...] 30 days)____work up to be done in [facility] 05/28/12 Date of EKG: work up on 05/28/12 in [facility] Medications:verified. Stop Metformin 48 hour [...] ekg dates. Information not yet available from [facility]. documented in this encounter Plan of Treatment Not on file documented as of this encounter Visit Diagnoses Not on filedocumented in this encounter Care Teams Retail Merchandiser Relationship Specialty Start Date End Date Coni Lim MD [address] [place] [address] PCP - General 07/16/10 documented as of this encounter
--- OUTSIDE RECORDS SUMMARY | 2024-08-19 14:56 | XMS_ITS | Encounter Summary ---
Author Organization [facility] [place] [address] Care Team Providers Care Customer Engagement Analyst Name Role Phone Coni Lim MD Primary Care Provider [phone] Reason for Visit * Reason Comments Chest Pain Encounter Details Date Type Department Care Team (Latest Contact Info) Description 05/13/2011 11:30 [place] [address] Rafael Nieto Jr., MD Chest pain (Primary Dx) Social History Tobacco [...] Final Report Romeo Coe : 1965 [facility], [address] [address] Primary Physician: CONI LIM MD [facility] David [...] unspecified documented in this encounter Care Teams Customer Engagement Analyst Relationship Specialty Start Date End Date Coni Lim MD [address] [place] [address] PCP - General 07/16/10 documented as of this encounter
--- OUTSIDE RECORDS SUMMARY | 2024-08-19 14:56 | XMS_ITS | Encounter Summary ---
Author Organization [facility] Address [facility] [place] [address] Care Team Providers Care Tooling Supervisor Name Role Phone Coni Lim MD Primary Care Provider [phone] Encounter Details Date Type Department Care Team (Late st Contact Info) Description 06/14/2012 Orders Only Cardiology at [address] [id number] Bryan Iverson MD [facility] [place] [id number] Social History Tobacco Use Types Packs/Day Years [...] PM EDT) 06/14/2012 1:26 PM EDT Narrative [facility] - 03/13/2014 6:59 PM EDT This is a non-reportable exam. Procedure Note Shukri Mckee - 03/13/2014 This is a non-reportable exam. Bryan Iverson MD IM FILM LIBRARY ORD ERABLES RAD [address] [address] documented in this encounter Visit Diagnoses Not on filedocumented in this encounter Care Teams Tooling Supervisor Relationship Specialty Start Date End Date Coni Lim MD [address] [place] [address] PCP - General 07/16/10 documented as of this encounter
--- OUTSIDE RECORDS SUMMARY | 2024-08-19 14:56 | XMS_ITS | Encounter Summary ---
Author Organization [facility] Address [address] [place] [address] Care Team Providers Care Straw Hat Brim Raiser Operator Name Role Phone Coni Lim MD Primary Care Provider [phone] Reason for Visit * (Routine/Next Available) - Receiving Office to Obtain Authorization Specialty Diagnoses / Procedures Referred By Contsigifredo t Referred To Contact Procedures CT OUTSIDE IMAGES HEAD AND NECK Unknown, Provider, MD Referral ID Status Reason Start Date Expiration Date Visits Requested Visits Authorized [id number] Receiving Office to Obtain Authorization 04/07/2023 1 1 Encounter Details Date Type Department Care Team (Latest Contact Info) Description 04/07/2023 20:14 EDT - 04/07/2023 23:44 EDT Hospital Encounter [facility] Secondary Reads [place] Discharge Disposition: [...] on filedocumented in this encounter Care Teams Straw Hat Brim Raiser Operator Relationship Specialty Start Date End Date Coni Lim MD [address] [place] [address] PCP - General 12/17/11 documented as of this encounter
--- OUTSIDE RECORDS SUMMARY | 2024-08-19 14:56 | XMS_ITS | Encounter Summary ---
Author Organization [facility] Address [facility] [place] [address] Care Team Providers Care Skate Boarder Name Role Phone Sarita Lim MD Primary Care Provider [phone] Encounter Details Date Type Department Care Team (Late st Contact Info) Description 06/03/2012 9:55 AM EDT - 06/03/2012 10:55 AM EDT [place] [id number] Kathie Cotter MD [facility] [place] [address] CARDIAC CATHETERIZATION Social History Tobacco Use Types [...] appointments: During 8am-5pm Thursday through Thursday call [phone] to speak with a nurse in the cardiology clinic All other times call [phone] and ask to speak to the medical researcher workforce management consultant. Return to work: One week Driving: No driving for 48 hours after catheterization. Follow up Appointments: PCP: SARITA LIM MD , Call for appointment in 1-2 weeks. Side Door Man: Dr Leyva, You should be seen in 3-4 weeks for follow up. Please call for appointment * Attachments The following attachments cannot be sent through Care Everywhere. * PERCUTANEOUS CORONARY INTERVENTION: WHAT TO EXPECT AT HOME (EMIRATI) * CHEST PAIN (ANGINA): AFTER YOUR VISIT (EMIRATI) documented in this encounter Medications at Time [...] NSR Meds: Current facility-administered medications ordered in [facility] Medication Dose Route Frequency Provider Last [...] in sodium chloride 0.9% 50 mL infusion (INSTRUCTOR PILOT) Intravenous Continuous PRN Kathie Cotter MD Last Dose: 194.3 mg/hr at 06/03/12 1509 ??? DISCONTD: adenosine 90 mg in sodium chloride 0.9% 90 mL infusion (INSTRUCTOR PILOT) Intravenous Continuous PRN Kathie Cotter MD Last [...] Family History: Father-, pre-mature CAD (age 46), SC, CABG Uncle +CAD Mother, DM, HTN. HLP [...] to arthritis and fibromyalgia Provider: LENORE HOFFMAN [id number] documented in this encounter Procedure Notes * Provider, Scanning - 06/04/2012 10:04 PM EDTAssociated Order(s): SCAN DOC: PAN SHAKER * Provider, Scanning - 06/03/2012 4:39 PM [...] ??? CAD (coronary artery disease), non-obstructive - [facility] 2009 post abnormal nuc stress [...] appointments: During 8am-5pm Thursday through Thursday call [phone] to speak with a nurse in the cardiology clinic All other times call [phone] and ask to speak to the medical researcher workforce management consultant. Return to work: One week Driving: No driving for 48 hours after catheterization. Follow up Appointments: PCP: SARITA LIM MD , Call for appointment in 1-2 weeks. Side Door Man: Dr Leyva, You should be seen in 3-4 weeks for follow up. Please call for appointment General Instructions None Future Appointments and Orders Future Appointments: Provider: Department: Dept Phone: Center: 06/04/2012 4:45 PM Echo Inpatient Add-On [facility] Non-Inv Card Lab [phone] None Provider Contact Information: Dr. Kathie Stephen Section of Cardiology [facility] [phone] Discharge References/Attachments: Discharge References/Attachments None Signed: Bryan Stephen MD DATE: 06/04/2012 * Miscellaneous - Provider, Scanning - 06/03/2012 11:02 AM EDT documented in this encounter Plan of Treatment Not on file documented as of this encounter Procedures Procedure Name Priority Date/Time Associated Diagnosis Comments CARDIAC CATHETERIZATION Routine 06/07/20 12 2:15 PM EDT PAN SHAKER SCAN 06/04/2012 10:04 PM EDT ECHOCARDIOGRAM TRANSTHORACIC [...] CAD (coronary artery disease), non-obstructive CARDIAC ENZYMES ([facility]) STAT 06/03/2012 4:00 PM EDT CARDIAC CATHETERIZATION 06/03/20 12 2:02 PM EDT CP POCT GLUCOSE Routine 06/03/2012 11:11 AM EDT documented in this encounter Results * Cardiac Catheterization (06/07/2012 2:15 PM EDT) Anatomical Region Laterality Modality Other Narrative 06/03/2012 4:39 PM EDT Procedure Note Provider, Scanning - 06/03/2012 4:39 PM EDT Kathie Cotter MD CARDIAC CATH ORDERAB LES * SCAN DOC: PAN SHAKER (06/04/2012 10:04 PM EDT) Anatomical Region Laterality Modality Other Narrative 06/06/2012 2:36 AM EDT Procedure Note Provider, Scanning - 06/04/2012 10:04 PM EDT Scanning Provider MEDIA MGR SCAN EXT O RDR/RSLT * Echo Transthoracic (Complete) (06/04/2012 8:57 AM EDT) [facility] EF 60 HEARTCompressus SYSTEM Anatomical Region Laterality Modality Other 06/04/2012 Narrative 06/04/2012 9:13 AM EDT Procedure: ? Transthoracic Echocardiogram Patient: ? LAQUITA Pop ?(Age): 1965(46) Med Rec#: ?[id number] ? Sex: ?M ? Site Loc: ?[facility] ? Ht / Wt: ??176(cm)/122(kg) Pt. Loc: ? Adult Floor ?BSA: ?2.44 Study Date: ?06/04/2012 ? Pt. Type: Inpatient Tape: ? Referring: Kathie Cotter Loan Supervisor: Khoi Gaines [facility] Loan Supervisor 2: Mason Duron ([id number]) Diagnosis: ??Chest pain (786.50) CPT Code(s): ??Echo Full (93317), ??Spectral Doppler (32372), ??Color Doppler (48072), ??Definity (71843IR), Indication(s): ??Chest Pain Rhythm: HR ?BP 78 [...] ? Mid-Inferior ?Normal ? Mid-Inferoseptal ?Normal ? [place]-Septal ? Normal ? [place]-Anterior ? Normal ? [place]-Lateral ?Normal ? [place]-Inferior ? Normal ? [place]-Tip ?Normal ? Chambers ?Value ?Units (Range) ? [...] 06/04/2012 09:12:51 Images reviewed and interpretation verified [facility] Cardiac Ultrasound Laboratory Procedure Note Christos Buchanan MD - 06/04/2012 Procedure: Transthoracic Echocardiogram Patient: LAQUITA Pop (Age): 1965(46) Med Rec#: [id number] Sex: M Site Loc: [facility] Ht / Wt: 176(cm)/122(kg) Pt. Loc: Adult Floor BSA: 2.44 Study Date: 06/04/2012 Pt. Type: Inpatient Tape: Referring: Kathie Cotter Loan Supervisor: Khoi Gaines [facility] Loan Supervisor 2: Mason Duron ([id number]) Diagnosis: Chest pain (786.50) CPT Code(s): Echo Full (55871), Spectral Doppler (77472), Color Doppler (47345), Definity (54931OI), Indication(s): Chest Pain Rhythm: HR BP 78 [...] Normal Mid-Posterolateral Normal Mid-Inferior Normal Mid-Inferoseptal Normal [place]-Septal Normal [place]-Anterior Normal [place]-Lateral Normal [place]-Inferior Normal [place]-Tip Normal Chambers Value Units (Range) LV EF [...] 06/04/2012 09:12:51 Images reviewed and interpretation verified [facility] Cardiac Ultrasound Laboratory Kathie Cotter MD ECHO ORDERABLES * POCT GLUCOSE (06/04/2012 7:06 AM EDT) Pathologist [facility] Glucose, POC 183 60 - 199 mg/dL [facility] Comment: Supplemental ranges: <110 mg/dL before meals <200 mg/dL all other times of the day Blood specimen (specimen) 06/04/2012 7:06 AM EDT 06/04/2012 7:06 AM EDT Kathie Cotter MD POINT OF CARE TEST O RDERABLES Performing Organization Address City/[facility]/ZIP Co de Phone Number [facility] * EKG 12-LEAD (06/04/2012 6:07 AM EDT) Ventricular rate 77 BPM MUSE SYSTEM Atrial Rate 77 BPM MUSE SYSTEM P-R Interval 150 ms MUSE SYSTEM QRS Duration 92 ms MUSE SYSTEM Q-T Interval 372 ms MUSE SYSTEM QTC Calculated (Bezet) 420 ms MUSE SYSTEM Calculated P Independence 30 degrees MUSE SYSTEM Calculated R Independence 37 degrees MUSE SYSTEM Calculated T Independence 30 degrees MUSE SYSTEM INTERPRETATION Normal sinus rhythm Normal ECG When compared with ECG of 03-JUN-2012 16:38, No significant change was found Confirmed by MD Mirtha, Cali ([id number]) on 06/04/2012 1:38:26 PM MUSE SYSTEM 06/04/2012 6:07 AM EDT 06/04/2012 1:38 PM EDT Unknown ECG ORDERABLES Performing Organization Address City/[facility]/ZIP Co de Phone Number MUSE SYSTEM * (ABNORMAL) BMP w/fasting Glucose (06/04/2012 6:05 AM EDT) [facility] Glucose Fasting 185(H) 65 - 99 [...] of Diabetes Mellitus, Position Statement from the [place] Diabetes Association. ??Diabetes Care, Volume 33, Supplement 1, Aug 2009 Blood Urea Nitrogen 10 10 - 20 mg/dL [facility] Creatinine 0.82 0.80 - 1.50 mg/dL [facility] Comment: Please note that the pediatric reference intervals supplied above were not validated at [facility]. Results from pediatric patients should [...] Lab Kathie Cotter MD CHEMISTRY ORDERABLES [facility] * (ABNORMAL) LDL CHOLESTEROL, DIRECT (06/04/2012 4:45 AM EDT) LDL Cholesterol, Direct 108(H) <=99 mg/dL [facility] Comment: The National Cholesterol Education Program (NCEP) has set the following guidelines for LDL Cholesterol: Reference range: ?? Optimal: ?<100 mg/dL ?? Near Optimal/Above Optimal: ?? 100-129 mg/dL ?? Borderline high: ?130-159 mg/dL ?? High: ? 160-189 mg/dL ?? Very high: ?>lg=072 mg/dL RACHEL 2001: 285(19):6148-1122 Blood specimen (specimen) 06/04/2012 4:45 AM EDT [...] Gran Absolute 0.02 0.00 - 0.05 x10(3)/mcL [facility] Blood specimen (specimen) 06/04/2012 4:45 AM EDT 06/04/2012 4:55 AM EDT Kathie Cotter MD HEMATOLOGY ORDERABLE S Performing Organization Address [facility] de Phone Number [facility] * Alkaline Phosphatase (06/04/2012 4:45 AM EDT) Alkaline Phosphatase 53 40 - 120 unit/L [facility] Blood specimen (specimen) 06/04/2012 4:45 AM EDT 06/04/2012 4:55 AM EDT Narrative Resulting Agency Comment Spec In Lab Kathie Cotter MD CHEMISTRY ORDERABLES Performing Organization Address [facility] de Phone Number [facility] * Alanine Aminotransferase (06/04/2012 4:45 AM EDT) Alanine Aminotransferase 31 0 - 55 unit/L [facility] Blood specimen (specimen) 06/04/2012 4:45 AM EDT 06/04/2012 4:55 AM EDT Narrative Resulting Agency Comment Spec In Lab Kathie Cotter MD CHEMISTRY ORDERABLES Performing Organization Address [facility] Co de Phone Number [facility] * Aspartate Aminotransferase (06/04/2012 4:45 AM EDT) Aspartate Aminotransferase 31 0 - 39 unit/L [facility] Blood specimen (specimen) 06/04/2012 4:45 AM EDT 06/04/2012 4:55 AM EDT Narrative Resulting Agency Comment Spec In Lab Kathie Cotter MD CHEMISTRY ORDERABLES Performing Organization Address [facility] de Phone Number [facility] * (ABNORMAL) Hemoglobin A1c (06/04/2012 4:45 AM EDT) [facility] Hemoglobin A1c 6.5(H) 4.3 - 6.1 % [facility] Estimated Average Glucose 140 mg/dL [facility] Comment: eAG equivalents for HbA1c percentages: [...] into estimated average glucose values. ??Diabetes Care 2008:31(8):9377-0235. Blood specimen (specimen) 06/04/2012 4:45 AM EDT 06/04/2012 4:55 AM EDT Narrative Resulting Agency Comment Spec In Lab Kathie Cotter MD CHEMISTRY ORDERABLES Performing Organization Address [facility] Co de Phone Number [facility] * (ABNORMAL) Lipid panel (fasting) (06/04/2012 4:45 AM EDT) [facility] Cholesterol, Total 186 <=199 mg/dL [facility] Comment: Recommendations of the NCEP Adult Treatment Panel for the following risk cutoff thresholds for the [place] population: Desirable: <200 mg/dL Borderline High: 200-239 mg/dL High: > or = 240 mg/dL Triglyceride 412(H) <=149 mg/dL [facility] Comment: Reference Range: Normal triglycerides: ??<150 mg/dL Borderline high: ??150-199 mg/dL High: ??200-499 mg/dL Very high: ??>lv=659 mg/dL RACHEL 2001; 285(19):9614-5909 HDL Cholesterol 25(L) >=40 mg/dL [facility] Comment: Reference range: ??Low HDL: ?? < 40 mg/dL ??Normal: ?40-60 mg/dL ??Desirable: > 60 mg/dL RACHEL 2001; 285(19):2400-3213 LDL Cholesterol Not Calculated <=99 mg/dL [facility] Comment: Since a calculated LDL value is not valid for triglycerides greater than 400 mg/dl, a direct LDL determination is performed instead. Reference range: ?? Optimal: ?<100 mg/dL ?? Near Optimal/Above Optimal: ?? 100-129 mg/dL ?? Borderline high: ?130-159 mg/dL ?? High: ? 160-189 mg/dL ?? Very high: ?>cm=421 mg/dL RACHEL 2001: 285(19):3011-7912 Cholesterol/HDL Ratio 7.4 ratio [facility] Comment: A Cholesterol to HDL ratio below 4:1 is desirable. ??Studies suggest that increased CAD risk occurs at ratios above 5 for females and above 6 for men. ? [place] Heart Association ??(http://www.americanheart.org) ? Pallavi Int Med, 1994; 121:641 ? AM J Med, 1998; 105(1A):48S Blood specimen (specimen) 06/04/2012 4:45 AM EDT 06/04/2012 4:55 AM EDT Narrative Resulting Agency Comment Spec In Lab Kathie Cotter MD CHEMISTRY ORDERABLES Performing Organization Address [facility] de Phone Number [facility] * (ABNORMAL) Cardiac Enzymes (06/04/2012 4:45 AM EDT) Troponin-T 0.07(H) <=0.03 ng/mL [facility] Comment: 0.03 ng/mL: Represents the 99th percentile upper reference limit for normals. >0.03 ng/mL: Elevated cardiac troponin T level indicative of myocardial damage. Diagnosis of acute, evolving or recent SC requires a typical rise and gradual fall [...] consensus document of the Joint Society of Cardiology/[place] College of Cardiology Committee for the redefinition of myocardial infarction. Journal of the [place] College of Cardiology 2000; 36: 959-969] Creatine Kinase 150 0 - 200 unit/L [facility] Comment:result rechecked-[facility] Blood specimen (specimen) 06/04/2012 4:45 AM EDT 06/04/2012 4:55 AM EDT Narrative Resulting Agency Comment Spec In Lab Kathie Cotter MD CHEMISTRY ORDERABLES Performing Organization Address [facility] Co de Phone Number [facility] * CBC (with Diff) (06/04/2012 4:45 AM EDT) White Blood Cell 6.4 4.0 - 10.0 x10(3)/mcL [facility] Red Blood Cell 4.78 4.63 - 6.08 x10(6)/mcL [facility] Hemoglobin 14.6 13.7 - 17.5 gm/dL [facility] Hematocrit 42.7 40.0 - 51.0 % [facility] Mean Cell Volume 89.3 79.0 - 92.0 fL [facility] Mean Cell Hemoglobin 30.5 25.6 - 32.2 pg [facility] Mean Cell Hemoglobin Concentration 34.2 32.0 - 36.5 gm/dL [facility] Platelet 154 145 - 370 x10(3)/mcL [facility] RDW Standard Deviation 41.0 35.0 - 46.0 fL [facility] MILLENNIUM RDW coefficient of variation 12.7 10.9 - 14.4 % [facility] Mean Platelet Volume 10.1 9.0 - 12.0 fL [facility] Blood specimen (specimen) 06/04/2012 4:45 AM EDT 06/04/2012 4:55 AM EDT Narrative Resulting Agency Comment Spec In Lab Kathie Cotter MD HEMATOLOGY ORDERABLE S Performing Organization Address [facility]/ZIP Co de Phone Number [facility] * POCT GLUCOSE (06/03/2012 9:31 PM EDT) Glucose, POC 163 60 - 199 mg/dL [facility] Comment: Supplemental ranges: <110 mg/dL before meals <200 mg/dL all other times of the day Blood specimen (specimen) 06/03/2012 9:31 PM EDT 06/03/2012 9:31 PM EDT Kathie Cotter MD POINT OF CARE TEST O RDERABLES Performing Organization Address City/[facility]/ZIP Co de Phone Number [facility] * POCT GLUCOSE (06/03/2012 6:10 PM EDT) Glucose, POC 97 60 - 199 mg/dL [facility] Comment: Supplemental ranges: <110 mg/dL before meals <200 mg/dL all other times of the day Blood specimen (specimen) 06/03/2012 6:10 PM EDT 06/03/2012 6:10 PM EDT Kathie Cotter MD POINT OF CARE TEST O RDERABLES Performing Organization Address [facility] de Phone Number [facility] * EKG 12 Lead (06/03/2012 4:38 PM EDT) Pathologist [facility] Ventricular rate 74 BPM MUSE SYSTEM Atrial Rate 74 BPM MUSE SYSTEM P-R Interval 150 ms MUSE SYSTEM QRS Duration 92 ms MUSE SYSTEM Q-T Interval 372 ms MUSE SYSTEM QTC Calculated (Bezet) 412 ms MUSE SYSTEM Calculated P Independence 46 degrees MUSE SYSTEM Calculated R Independence 25 degrees MUSE SYSTEM Calculated T Independence 29 degrees MUSE SYSTEM INTERPRETATION Normal sinus rhythm Normal ECG When compared with ECG of 18-JAN-2010 07:42, No significant change was found Confirmed by MD Mirtha, Cali ([id number]) on 06/04/2012 7:52:23 AM MUSE SYSTEM 06/03/2012 4:38 PM EDT 06/04/2012 7:52 AM EDT Kathie Cotter MD ECG ORDERABLES Performing Organization Address [facility] de Phone Number MUSE SYSTEM * Cardiac Enzymes (06/03/2012 4:00 PM EDT) [facility] Troponin-T <0.03 <=0.03 ng/mL [facility] Comment: 0.03 ng/mL: Represents the 99th percentile upper reference limit for normals. >0.03 ng/mL: Elevated cardiac troponin T level indicative of myocardial damage. Diagnosis of acute, evolving or recent SC requires a typical rise and gradual fall [...] consensus document of the Joint Society of Cardiology/[place] College of Cardiology Committee for the redefinition of myocardial infarction. Journal of the [place] College of Cardiology 2000; 36: 959-969] Creatine Kinase 41 0 - 200 unit/L [facility] Blood specimen (specimen) 06/03/2012 4:00 PM EDT 06/03/2012 4:12 PM EDT Narrative Resulting Agency Comment Spec In Lab Kathie Cotter MD CHEMISTRY ORDERABLES Performing Organization Address City/[facility]/ZIP Co de Phone Number [facility] * POCT GLUCOSE (06/03/2012 11:11 AM EDT) [facility] Glucose, POC 147 60 - 199 mg/dL [facility] Comment: Supplemental ranges: <110 mg/dL before meals <200 mg/dL all other times of the day Blood specimen (specimen) 06/03/2012 11:11 AM EDT 06/03/2012 11:11 AM EDT Kathie Cotter MD POINT OF CARE TEST O RDERABLES Performing Organization Address [facility] Co de Phone Number [facility] documented in this encounter Visit Diagnoses Not on filedocumented in this encounter Administered Medications Inactive Administered Medications - up to 3 most recent administrations Medication Order MAR Action Action Date Dose Rate Site adenosine 90 mg in sodium chloride 0.9% 90 mL infusion (INSTRUCTOR PILOT) Intravenous, CONTINUOUS PRN, Starting on Martha 06/03/12 at 1511, Until Martha 06/03/12 at 1734, Cath (Intra-Procedure), Routine New Bag 06/03/2012 3:11 PM EDT 140 mcg/kg/min 933.2 mL/hr aspirin EC tablet 81 mg 81 mg, Oral, DAILY, First dose on Thu06/04/12 at 0900, Until Discontinued, Routine Given 06/04/2012 8:38 AM EDT 81 mg bivalirudin (ANGIOMAX) 250 mg in sodium chloride 0.9% 50 mL infusion (INSTRUCTOR PILOT) Intravenous, CONTINUOUS PRN, Starting on Martha 06/03/12 [...] took this AM) 0838 (Given - Provider: aJcy Reid RN) metoprolol (LOPRESSOR) tablet 12.5 mg [...] in sodium chloride 0.9% 90 mL infusion (INSTRUCTOR PILOT) (CANCELED) Intravenous, CONTINUOUS PRN, Starting on Martha 06/03/12 at 1511, Until Martha 06/03/12 at 1734, Cath (Intra-Procedure), Routine 1511 (New Bag - Provider: Dustin Carlton Jr.)1521 (Stopped - Provider: Tawanda Agarwal, VERO) bivalirudin (ANGIOMAX) 250 mg in sodium chloride 0.9% 50 mL infusion (INSTRUCTOR PILOT) (CANCELED) Intravenous, CONTINUOUS PRN, Starting on Martha [...] MD) documented in this encounter Care Teams Skate Boarder Relationship Specialty Start Date End Date Sarita Lim MD [address] [place] [address] PCP - General 07/16/10 documented as of this encounter
--- OUTSIDE RECORDS SUMMARY | 2024-08-19 14:56 | XMS_ITS | Encounter Summary ---
Author Organization [facility] Address [address] [place] [address] Care Team Providers Care Business Employment Specialist Name Role Phone Coni Lim MD Primary Care Provider [phone] Reason for Visit * (Routine/Next Available) - Receiving Office to Obtain Authorization Specialty Diagnoses / Procedures Referred By Contsigifredo t Referred To Contact Procedures CT OUTSIDE IMAGES CHEST ABDOMEN PELVIS Unknown, Provider, MD Referral ID Status Reason Start Date Expiration Date Visits Requested Visits Authorized [id number] Receiving Office to Obtain Authorization 04/07/2023 1 1 Encounter Details Date Type Department Care Team (Latest Contact Info) Description 04/07/2023 20:11 EDT - 04/07/2023 20:13 EDT Hospital Encounter [facility] Secondary Reads [place] Discharge Disposition: Home [...] on filedocumented in this encounter Care Teams Business Employment Specialist Relationship Specialty Start Date End Date Coni Lim MD [address] [place] [id number] PCP - General 12/17/11 documented as of this encounter
--- OUTSIDE RECORDS SUMMARY | 2024-08-19 14:56 | XMS_ITS | Clinical Summary ---
Author Organization [facility] Address [address] [place] [address] Care Team Providers Care Manager Reporting Name Role Phone Coni Lim MD Primary [...] Encephalopathy 04/08/2023 Acute respiratory failure with hypoxia ([facility]) 04/08/2023 Idiopathic hypotension 04/08/2023 CVA (cerebral vascular accident) ([facility]) 03/15 Anxiety and depression 02/22/2014 Unstable angina ([facility]) 02/15/2014 CAD (coronary artery disease) 02/15/2014 Syncope Surgical History Surgery Date Site/Laterality Comments GALLBLADDER SURGERY Medical History Medical History Date Comments HTN (hypertension) HLD (hyperlipidemia) DMII (diabetes mellitus, type 2) ([facility]) CAD (coronary artery disease) Smoking Depression [...] Advance Directives For more information, please contact: [phone] * Full Code (Latest Code Status on [...] Comments 02/14/2014 22:30 02/16/2014 17:34 Care Teams Manager Reporting Relationship Specialty Start Date End Date Coni Lim MD [address] [place] [address] PCP - General 12/17/11
--- OUTSIDE RECORDS SUMMARY | 2024-08-19 14:56 | XMS_ITS | Encounter Summary ---
Author Organization [facility] Address [facility] [place] [address] Care Team Providers Care County Sheriff Name Role Phone Sarita Chew MD Primary Care Provider [phone] Encounter Details Date Type Department Care Team (Latest Contact Info) Description 06/03/2012 5:57 PM EDT - 06/04/2012 10:33 AM EDT Hospital Encounter [place] [id number] Kathie Cotter MD [facility] [place] [address] CAD (coronary artery disease), non-obstructive; S/P coronary [...] appointments: During 8am-5pm Thursday through Thursday call [phone] to speak with a nurse in the cardiology clinic All other times call [phone] and ask to speak to the computer game programmer oncology research rn. Return to work: One week Driving: No driving for 48 hours after catheterization. Follow up Appointments: PCP: SARITA CHEW MD , Call for appointment in 1-2 weeks. Engineering Surveyor: Dr Leyva, You should be seen in [...] NSR Meds: Current facility-administered medications ordered in [facility] Medication Dose Route Frequency Provider Last [...] in sodium chloride 0.9% 50 mL infusion (HEALTH POLICY ANALYST) Intravenous Continuous PRN Kathie Cottre MD Last Dose: 194.3 mg/hr at 06/03/12 1509 ??? DISCONTD: adenosine 90 mg in sodium chloride 0.9% 90 mL infusion (HEALTH POLICY ANALYST) Intravenous Continuous PRN Kathie Cotter MD Last [...] DISCONTD: ticagrelor (BRILINTA) tablet Oral Once PRN Ktahie Cotter MD Last Dose: 180 mg at [...] Family History: Father-, pre-mature CAD (age 46), MS, CABG Uncle +CAD Mother, DM, HTN. HLP [...] [facility] Leyva in March; [facility]JACINDA [facility]. 2. HTN, stable, 3. [...] 06/04/2012 10:04 PM EDTAssociated Order(s): SCAN DOC: SPECIAL EVENTS MANAGER * Provider, Scanning - 06/03/2012 4:39 PM [...] to the outpatient cardiac rehabilitation program at [facility] was discussed. A referral will [...] appointments: During 8am-5pm Thursday through Thursday call [phone] to speak with a nurse in the cardiology clinic All other times call [phone] and ask to speak to the computer game programmer oncology research rn. Return to work: One week Driving: No driving for 48 hours after catheterization. Follow up Appointments: PCP: SARITA CHEW MD , Call for appointment in 1-2 weeks. Engineering Surveyor: Dr Leyva, You should be seen in 3-4 weeks for follow up. Please call for appointment General Instructions None Future Appointments and Orders Future Appointments: Provider: Department: Dept Phone: Center: 06/04/2012 4:45 PM Echo Inpatient Add-On [facility] Non-Inv Card Lab [phone] None Provider Contact Information: Dr. Kathie Stephen Section of Cardiology [facility] [phone] Discharge References/Attachments: Discharge References/Attachments None Signed: Bryan Stephen MD DATE: 06/04/2012 * Miscellaneous - Provider, Scanning - 06/03/2012 11:02 AM EDT documented in this encounter Plan of Treatment Not on file documented as of this encounter Procedures Procedure Name Priority Date/Time Associated Diagnosis Comments CARDIAC CATHETERIZATION Routine 06/07/20 2:15 PM EDT SPECIAL EVENTS MANAGER SCAN 06/04/2012 10:04 PM EDT ECHOCARDIOGRAM TRANSTHORACIC [...] CAD (coronary artery disease), non-obstructive CARDIAC ENZYMES ([facility]) STAT 06/03/2012 4:00 PM EDT CARDIAC CATHETERIZATION 06/03/20 12 2:02 PM EDT CP POCT GLUCOSE Routine 06/03/2012 11:11 AM EDT documented in this encounter Results * Cardiac Catheterization (06/07/2012 2:15 PM EDT) Anatomical Region Laterality Modality Other Narrative 06/03/2012 4:39 PM EDT Procedure Note Provider, Scanning - 06/03/2012 4:39 PM EDT Kathie Cotter MD CARDIAC CATH ORDERAB LES * SCAN DOC: SPECIAL EVENTS MANAGER (06/04/2012 10:04 PM EDT) Anatomical Region Laterality Modality Other Narrative 06/06/2012 2:36 AM EDT Procedure Note Provider, Scanning - 06/04/2012 10:04 PM EDT Scanning Provider MEDIA MGR SCAN EXT O RDR/RSLT * Echo Transthoracic (Complete) (06/04/2012 8:57 AM EDT) [facility] Signature EF 60 HEART[employer] SYSTEM Anatomical Region Laterality Modality Other 06/04/2012 Narrative 06/04/2012 9:13 AM EDT Procedure: ? Transthoracic Echocardiogram Patient: ? COELHO ROMEO A ?(Age): 1965(46) Med Rec#: ?[id number] ? Sex: ?M ? Site Loc: ?[facility] ? Ht / Wt: ??176(cm)/122(kg) Pt. Loc: ? Adult Floor ?BSA: ?2.44 Study Date: ?06/04/2012 ? Pt. Type: Inpatient Tape: ? Referring: Kathie Cotter Automatic Edger: Khoi Gaines [facility] Automatic Edger 2: Mason Duron ([id number]) Diagnosis: ??Chest pain (786.50) CPT Code(s): ??Echo Full (41199), ??Spectral Doppler (51416), ??Color Doppler (60838), ??Definity ([id number]), Indication(s): ??Chest Pain Rhythm: HR ?BP 78 [...] ? Mid-Inferior ?Normal ? Mid-Inferoseptal ?Normal ? [place]-Septal ? Normal ? [place]-Anterior ? Normal ? [place]-Lateral ?Normal ? [place]-Inferior ? Normal ? [place]-Tip ?Normal ? Chambers ?Value ?Units (Range) ? [...] 06/04/2012 09:12:51 Images reviewed and interpretation verified [facility] Procedure Note Christos Buchanan MD - 06/04/2012 Procedure: Transthoracic Echocardiogram Patient: LAQUITA Pop (Age): 1965(46) Med Rec#: [id number] Sex: M Site Loc: [facility] Ht / Wt: 176(cm)/122(kg) Pt. Loc: Adult Floor BSA: 2.44 Study Date: 06/04/2012 Pt. Type: Inpatient Tape: Referring: Kathie Cotter Automatic Edger: Khoi Gaines [facility] Automatic Edger 2: Mason Duron ([id number]) Diagnosis: Chest pain (786.50) CPT Code(s): Echo Full (92168), Spectral Doppler (91217), Color Doppler (90405), Definity ([id number]), Indication(s): Chest Pain Rhythm: HR BP 78 [...] Normal Mid-Posterolateral Normal Mid-Inferior Normal Mid-Inferoseptal Normal [place]-Septal Normal [place]-Anterior Normal [place]-Lateral Normal [place]-Inferior Normal [place]-Tip Normal Chambers Value Units (Range) LV EF [...] 06/04/2012 09:12:51 Images reviewed and interpretation verified [facility] Kathie Cotter MD ECHO ORDERABLES * POCT GLUCOSE (06/04/2012 7:06 AM EDT) [facility] Glucose, POC 183 60 - 199 mg/dL [facility] Comment: Supplemental ranges: <110 mg/dL before meals <200 mg/dL all other times of the day Blood specimen (specimen) 06/04/2012 7:06 AM EDT 06/04/2012 7:06 AM EDT Kathie Cotter MD POINT OF CARE TEST O RDERABLES Performing Organization Address [facility] de Phone Number [facility] * EKG 12-LEAD (06/04/2012 6:07 AM EDT) [facility] Ventricular rate 77 BPM MUSE SYSTEM Atrial Rate 77 BPM MUSE SYSTEM P-R Interval 150 ms MUSE SYSTEM QRS Duration 92 ms MUSE SYSTEM Q-T Interval 372 ms MUSE SYSTEM QTC Calculated (Bezet) 420 ms MUSE SYSTEM Calculated P [place] 30 degrees MUSE SYSTEM Calculated R [place] 37 degrees MUSE SYSTEM Calculated T [place] 30 degrees MUSE SYSTEM INTERPRETATION Normal sinus rhythm Normal ECG When compared with ECG of 03-JUN-2012 16:38, No significant change was found Confirmed by MD Mirtha, Cali ([id number]) on 06/04/2012 1:38:26 PM MUSE SYSTEM 06/04/2012 6:07 AM EDT 06/04/2012 1:38 PM EDT Unknown ECG ORDERABLES Performing Organization Address [facility] Co de Phone Number MUSE SYSTEM * (ABNORMAL) BMP w/fasting Glucose (06/04/2012 6:05 AM EDT) [facility] Glucose Fasting 185(H) 65 - 99 mg/dL [...] High: ? 160-189 mg/dL ?? Very high: ?>ws=183 mg/dL RACHEL 2001: [id number] Blood specimen (specimen) 06/04/2012 4:45 AM EDT [...] Gran Absolute 0.02 0.00 - 0.05 x10(3)/mcL [facility] Blood specimen (specimen) 06/04/2012 4:45 AM EDT 06/04/2012 4:55 AM EDT Kathie Cotter MD HEMATOLOGY ORDERABLE S Performing Organization Address [facility] de Phone Number [facility] * Alkaline Phosphatase (06/04/2012 4:45 AM EDT) Alkaline Phosphatase 53 40 - 120 unit/L [facility] Blood specimen (specimen) 06/04/2012 4:45 AM EDT 06/04/2012 4:55 AM EDT Narrative Resulting Agency Comment Spec In Lab Kathie Cotter MD CHEMISTRY ORDERABLES Performing Organization Address [facility] de Phone Number [facility] * Alanine Aminotransferase (06/04/2012 4:45 AM EDT) Alanine Aminotransferase 31 0 - 55 unit/L [facility] Blood specimen (specimen) 06/04/2012 4:45 AM EDT 06/04/2012 4:55 AM EDT Narrative Resulting Agency Comment Spec In Lab Kathie Cotter MD CHEMISTRY ORDERABLES Performing Organization Address [facility] de Phone Number [facility] * Aspartate Aminotransferase (06/04/2012 4:45 AM EDT) Aspartate Aminotransferase 31 0 - 39 unit/L [facility] Blood specimen (specimen) 06/04/2012 4:45 AM EDT 06/04/2012 4:55 AM EDT Narrative Resulting Agency Comment Spec In Lab Kathie Cotter MD CHEMISTRY ORDERABLES Performing Organization Address [facility] Co de Phone Number [facility] * (ABNORMAL) Hemoglobin A1c (06/04/2012 4:45 AM EDT) Hemoglobin A1c 6.5(H) 4.3 - 6.1 % [facility] Estimated Average Glucose 140 mg/dL [facility] Comment: eAG equivalents for HbA1c percentages: HbA1c(%) [...] into estimated average glucose values. ??Diabetes Care 2008:31(8):8203-8875. Blood specimen (specimen) 06/04/2012 4:45 AM EDT 06/04/2012 4:55 AM EDT Narrative Resulting Agency Comment Spec In Lab Kathie Cotter MD CHEMISTRY ORDERABLES Performing Organization Address [facility] Co de Phone Number [facility] * (ABNORMAL) Lipid panel (fasting) (06/04/2012 4:45 AM EDT) [facility] Cholesterol, Total 186 <=199 mg/dL [facility] Comment: Recommendations of the NCEP Adult Treatment Panel for the following risk cutoff thresholds for the [place] population: Desirable: <200 mg/dL Borderline High: 200-239 mg/dL High: > or = 240 mg/dL Triglyceride 412(H) <=149 mg/dL [facility] Comment: Reference Range: Normal triglycerides: ??<150 mg/dL Borderline high: ??150-199 mg/dL High: ??200-499 mg/dL Very high: ??>oe=585 mg/dL RACHEL 2001; 285(19):7719-7022 HDL Cholesterol 25(L) >=40 mg/dL [facility] Comment: Reference range: ??Low HDL: ?? < 40 mg/dL ??Normal: ?40-60 mg/dL ??Desirable: > 60 mg/dL RACHEL 2001; 285(19):7441-1245 LDL Cholesterol Not Calculated <=99 mg/dL [facility] Comment: Since a calculated LDL value is not valid for triglycerides greater than 400 mg/dl, a direct LDL determination is performed instead. Reference range: ?? Optimal: ?<100 mg/dL ?? Near Optimal/Above Optimal: ?? 100-129 mg/dL ?? Borderline high: ?130-159 mg/dL ?? High: ? 160-189 mg/dL ?? Very high: ?>hs=539 mg/dL RACHEL 2001: 285(19):3863-8550 Cholesterol/HDL Ratio 7.4 ratio [facility] Comment: A Cholesterol to HDL ratio below 4:1 is desirable. ??Studies suggest that increased CAD risk occurs at ratios above 5 for females and above 6 for men. ? [place] Heart Association ??(http://www.americanheart.org) ? Pallavi Int Med, 1994; 121:641 ? AM J Med, 1998; 105(1A):48S Blood specimen (specimen) 06/04/2012 4:45 AM EDT 06/04/2012 4:55 AM EDT Narrative Resulting Agency Comment Spec In Lab Kathie Cotter MD CHEMISTRY ORDERABLES Performing Organization Address [facility] de Phone Number [facility] * (ABNORMAL) Cardiac Enzymes (06/04/2012 4:45 AM EDT) Troponin-T 0.07(H) <=0.03 ng/mL [facility] Comment: 0.03 ng/mL: Represents the 99th percentile [...] 200 unit/L [facility] Comment:result rechecked-[facility] Blood specimen (specimen) 06/04/2012 4:45 AM EDT 06/04/2012 4:55 AM EDT Narrative Resulting Agency Comment Spec In Lab Kathie Cotter MD CHEMISTRY ORDERABLES Performing Organization Address [facility] Co de Phone Number [facility] * CBC (with Diff) (06/04/2012 4:45 AM EDT) White Blood Cell 6.4 4.0 - 10.0 x10(3)/mcL [facility] Red Blood Cell 4.78 4.63 - 6.08 x10(6)/mcL [facility]ILLENNIUM Hemoglobin 14.6 13.7 - 17.5 gm/dL [facility] MILLENNIUM Hematocrit 42.7 40.0 - 51.0 % [facility] MILLENNIUM Mean Cell Volume 89.3 79.0 - 92.0 fL [facility]EN[facility]UM Mean Cell Hemoglobin 30.5 25.6 - 32.2 pg [facility] Mean Cell Hemoglobin Concentration 34.2 32.0 - 36.5 gm/dL [facility] MILLENNIUM Platelet 154 145 - 370 x10(3)/mcL [facility] MILL[facility]NIUM RDW Standard Deviation 41.0 35.0 - 46.0 fL [facility]ILLENNIUM RDW coefficient of variation 12.7 10.9 - 14.4 % [facility] Mean Platelet Volume 10.1 9.0 - 12.0 fL [facility] Blood specimen (specimen) 06/04/2012 4:45 AM EDT 06/04/2012 4:55 AM EDT Narrative Resulting Agency Comment Spec In Lab Kathie Cotter MD HEMATOLOGY ORDERABLE S Performing Organization Address [facility] Co de Phone Number [facility] * POCT GLUCOSE (06/03/2012 9:31 PM EDT) Glucose, POC 163 60 - 199 mg/dL [facility] Comment: Supplemental ranges: <110 mg/dL before meals <200 mg/dL all other times of the day Blood specimen (specimen) 06/03/2012 9:31 PM EDT 06/03/2012 9:31 PM EDT Kathie Cotter MD POINT OF CARE TEST O RDERABLES Performing Organization Address [facility] Co de Phone Number [facility] * POCT GLUCOSE (06/03/2012 6:10 PM EDT) Glucose, POC 97 60 - 199 mg/dL [facility] Comment: Supplemental ranges: <110 mg/dL before meals <200 mg/dL all other times of the day Blood specimen (specimen) 06/03/2012 6:10 PM EDT 06/03/2012 6:10 PM EDT Kathie Cotter MD POINT OF CARE TEST O RDERABLES Performing Organization Address [facility] Co de Phone Number [facility] * EKG 12 Lead (06/03/2012 4:38 PM EDT) Ventricular rate 74 BPM MUSE SYSTEM Atrial Rate 74 BPM MUSE SYSTEM P-R Interval 150 ms MUSE SYSTEM QRS Duration 92 ms MUSE SYSTEM Q-T Interval 372 ms MUSE SYSTEM QTC Calculated (Bezet) 412 ms MUSE SYSTEM Calculated P [place] 46 degrees MUSE SYSTEM Calculated R [place] 25 degrees MUSE SYSTEM Calculated T [place] 29 degrees MUSE SYSTEM INTERPRETATION Normal sinus rhythm Normal ECG When compared with ECG of 18-JAN-2010 07:42, No significant change was found Confirmed by MD Shannon Robert ([id number]) on 06/04/2012 7:52:23 AM MUSE SYSTEM 06/03/2012 4:38 PM EDT 06/04/2012 7:52 AM EDT Kathie Cotter MD ECG ORDERABLES Performing Organization Address [facility] de Phone Number MUSE SYSTEM * Cardiac Enzymes (06/03/2012 4:00 PM EDT) [facility] Troponin-T <0.03 <=0.03 ng/mL [facility] Comment: 0.03 ng/mL: Represents the 99th percentile [...] Cotter MD CHEMISTRY ORDERABLES Performing Organization Address City/[facility]/ZIP Co de Phone Number [facility] * POCT GLUCOSE (06/03/2012 11:11 AM EDT) Glucose, POC 147 60 - 199 mg/dL [facility] Comment: Supplemental ranges: <110 mg/dL before meals <200 mg/dL all other times of the day Blood specimen (specimen) 06/03/2012 11:11 AM EDT 06/03/2012 11:11 AM EDT Kathie Cotter MD POINT OF CARE TEST O RDERABLES Performing Organization Address [facility] Co de Phone Number TANG NORTON documented in this encounter Visit Diagnoses Diagnosis CAD (coronary artery disease), non-obstructive- Primary Coronary atherosclerosis of unspecified type of vessel, habematolel or graft S/P coronary artery stent placement [...] in sodium chloride 0.9% 90 mL infusion (HEALTH POLICY ANALYST) (CANCELED) Intravenous, CONTINUOUS PRN, Starting on Martha 06/03/12 at 1511, Until Martha 06/03/12 at 1734, Cath (Intra-Procedure), Routine 1511 (New Bag - Provider: Dustin Carlton Jr.)1521 (Stopped - Provider: Tawanda Agarwal RN) bivalirudin (ANGIOMAX) 250 mg in sodium chloride 0.9% 50 mL infusion (HEALTH POLICY ANALYST) (CANCELED) Intravenous, CONTINUOUS PRN, Starting on Martha [...] MD) documented in this encounter Care Teams County Sheriff Relationship Specialty Start Date End Date Sarita Chew MD [address] [place] [address] PCP - General 07/16/10 documented as of this encounter
--- OUTSIDE RECORDS SUMMARY | 2024-08-19 14:57 | XMS_ITS | Encounter Summary ---
Author Organization [facility] Address [address] [place] [address] Care Team Providers Care Beautician Apprentice Name Role Phone Sarita Lim MD Primary Care Provider [phone] Reason for Referral * Consult (Routine) - Closed Specialty Diagnoses / Procedures Referred By Contac t Referred To Contact Diagnoses S/P coronary artery stent placement Chest pain Kemi Pineda NP Heitzman, Mark, MD Phone: tel: fax: Referral ID Status Reason Start Date Expiration Date V isits Requested Visits Authorized [id number] Closed Specialty Services Required 02/23/2014 1 1 Question Answer Reason for Request: chest pain Scheduling Comments (optional ? describe specific scheduling needs if applicable): already scheduled Expected Discharge Date (Inpatient Only): 02/23/2014 Comments Already scheduled with Dr Leyva February at [address] Leyva's telephone number is [phone]. * Consult (Routine) - Closed Specialty Diagnoses / Procedures Referred By Contac t Referred To Contact Diagnoses S/P coronary artery stent placement Chest pain Kemi Pineda NP Referral ID Status Reason Start Date Expiration Date V isits Requested Visits Authorized [id number] Closed Specialty Services Required 02/22/2014 1 1 Question Answer Reason for Request: chest pain Scheduling Comments (optional ? describe specific scheduling needs if applicable): now, previously requested after 02/15/14 [facility] admission Expected Discharge Date (Inpatient Only): 02/23/2014 Comments Previously requested, please refer to cardiac rehab at [facility] Encounter Details Date Type Department Care Team (Late st Contact Info) Description 02/21/2014 18:30 EDT - 02/23/2014 15:44 EDT Hospital Encounter [facility]iac[facility]Tele[facility] [address] [place] [id number] Rafy Lopez MD [address] [place] [phone] Jez Ortiz MD [address] [place] [phone] Cali Sage MD [address] [place] [phone] Chest pain (Primary Dx); S/P coronary [...] with PMH of CAD s/p PCI at [facility] in May 2012 and Jul 2013 and admitted at [facility] on 02/15 for USAP and received JACINDA [...] unremitting chest pain and was taken to [facility]. There, troponin and EKG were negative of signs of ischemia. He was started on heparin and nitro gtt and transferred to [facility] for unstable angina. On arrival his chest [...] Time Frame: now, previously requested after 02/15/14 [facility] admission CONSULT: Consulting provider to render an [...] [address] Leyva's telephone number is [phone]. Reason for Request: chest pain Expected Discharge [...] the resident's note. Jez Ortiz Jr., MD metal fabricator [facility] Pager [phone] documented in this [...] EDT Stress test results reviewed with stress bottle label inspector. Exercised for almost 7 minutes and patient stoppedhis own test secondary to ANDERSON. Experienced minimal chest tightness, = 1, scale 1-10, which resolvedalmost immediately. Stress EKG negative for ischemia. Reviewed with Dr Arechiga. Plan: discharge home on current dose Ranexa with patient instructions forlow exertional level to allow for full effect of Ranexa at 2 weeks. Follow up as scheduled: Dr Leyva [facility], cardiac rehab [place], tobacco cessation. Tele: NSR 63, no events Exam: CV: S1 S2 no m/r/g Lungs CTA bilaterally Right radial: 2+ no residual ecchymosis or hematoma from 02/15/14 PCI Voiding without difficulty, no dyspepsia Assess: stable for discharge Plan: home today on Ranexa with limited exercise until fully therapeutic Follow up scheduled with Dr Leyva in [facility] Cardiac rehab [facility] Continue smoking cessation D/w Ludwig Tracy and Moo * Alyssa Phan - 02/23/2014 0901 EDT Spoke with Fany at [facility] transport. They will need a call when patient is ready [phone]. After 4:30pm call [phone]. JENNIFER DC note Patient will be discharged without services Stable per team for d/c Medications should be picked up from [facility] outpatient pharmacy prior to ride at 4:00pm [facility] transport will roll picker patient at 4:00pm in front of the [facility] Alyssa Phan RN CM #[id number] * Kemi Pineda NP - 02/22/2014 1712 [...] with PMH of CAD s/p PCI at [facility] in May 2012 and Jul 2013, tobacco [...] POA &/or COLST IN PLACE: No CULTURAL, YAZDANISM and/or LANGUAGE factors affecting health care/discharge planning:: [...] with transportation. 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 He will have a stress test today. [...] with PMH of CAD s/p PCI at [facility] in May 2012 and Jul 2013, tobacco [...] unremitting chest pain and was taken to [facility]. There, troponin and EKG were negative. He was started on heparin and nitro gtt and transferred to [facility] for observation. 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 Living situation: Lives in [place], [place], with . Family History Problem Relation [...] the resident's note. Jez Ortiz Jr., MD metal fabricator [facility] Pager [phone] documented in this [...] 03/09/2014 16:1 4 EDT us Scan 2 Children'S Service Worker IMG OTHER IMAGING ORDERABLE S Final Result * ECG REPORT - SCANNED (03/01/2014 15:54 EDT) 03/01/2014 15:5 4 EDT us Scan 2 Children'S Service Worker PROCEDURE/MINOR SURGICAL OR DERABLES Final Result * ECG REPORT - SCANNED (02/27/2014 12:40 EDT) 02/27/2014 12:4 0 EDT us Scan 2 Children'S Service Worker PROCEDURE/MINOR SURGICAL OR DERABLES Final Result * (ABNORMAL) GLUCOSE, GLUCOMETER (02/23/2014 11:41 EDT) Glucose, Fingerstick 185(H) 70 - 100 mg/dl [facility] [employer] [place] [id number] [facility] Comment:Test Performed by [employer] 02/23/2014 11:4 1 EDT 02/23/2014 11:42 EDT us Jez Ortiz MD CHEMISTRY & BLOOD GAS ORDERAB LES Final Result [facility] [address] [place] [address] * (ABNORMAL) GLUCOSE, GLUCOMETER (02/23/2014 9:28 EDT) Glucose, Fingerstick 153(H) 70 - 100 mg/dl [facility] [employer] ID [id number] [facility] Comment:Test Performed by [employer] 02/23/2014 9:28 EDT 02/23/2014 9:29 EDT us Rafy Lopez MD CHEMISTRY & BLOOD GAS ORD ERABLES Final Result [facility] [address] [place] [address] * EXERCISE TOLERANCE TEST WAVEFORM (02/23/2014 8:44 EDT) Anatomical Region Laterality Modality Other 02/23/2014 8:44 EDT Narrative 02/23/2014 8:46 EDT For report of this Waveform, see associated Image Study. ?[facility] ? Test Date: ?2014-02-23 Pat Name: ? ROMEO COELHO ?Department: ?? STRESS ? Room: ? Gender: ? M ?Benefit Authorizer: ?[id number] : ?1965 ? Requested By: ROSSANA Tenorio Order Number: [id number] ?Reading : ? Interpretive Statements Procedure Note 02/23/2014 For report of this Waveform, see associated Image Study. [facility] Test Date: 2014-02-23 Pat Name: ROMEO COELHO Department: STRESS Room: Gender: M Benefit Authorizer: [id number] : 1965 Requested By: ROSSANA Tenorio Order Number: [id number] Tiarra MD: Interpretive Statements Jermaine Tracy MD CARDIAC SERVICES ORDERABLES Final Result * EXERCISE TOLERANCE TEST (02/23/2014 7:30 EDT) Anatomical Region Laterality Modality Other 02/23/2014 7:30 EDT Narrative 03/03/2014 13:21 EDT *[facility]* [address] [place] [address] *Interpreting Group:* *[facility]* [address] [place] [address] Stress Electrocardiography Supa protocol *PATIENT PRESENTATION* Height: [...] chest pain became unremitting. Pt went to [facility] where EKG negative and troponin negative and reansferred to [facility]. Troponin negative here. Pt is S/P PCI at [facility] May 2012 and Jul 2013. Pt admitted [...] peak heart rate and blood pressure was 24836db Hg/min. ??1 out of 10 stress-induced chest [...] Note 03/03/2014 *[facility]* [address] [place] [address] *Interpreting Group:* *[facility]* [address] [place] [address] Stress Electrocardiography Supa protocol *PATIENT PRESENTATION* Height: [...] when chest painbecame unremitting. Pt went to [facility] where EKG negative andtroponin negative and re[facility]ferred to [facility]. Troponin negative here. Pt is S/P PCI at [facility] May 2012 and Jul 2013. Pt admitted [...] the peak heart rate andblood pressure was 78231fg Hg/min. 1 out of 10 stress-induced chest [...] (ABNORMAL) GLUCOSE, GLUCOMETER (02/23/2014 6:40 EDT) Pathologist [facility] Glucose, Fingerstick 137(H) 70 - 100 mg/dl [facility] [employer] ID [id number] [facility] Comment:Test Performed by [facility] 02/23/2014 6:40 EDT 02/23/2014 6:44 EDT Rafy Lopez MD CHEMISTRY & BLOOD GAS ORD ERABLES Final Result [facility] [address] [place] [address] * HEMAGRAM (02/23/2014 5:33 EDT) Pathologist [facility] WBC 8.20 4.0 - 10.4 K/cmm HUANG [...] ORDERABLES Fin al Result Performing Organization Address [facility] de Phone Number [facility] [address] [place] [address] * CREATININE (02/23/2014 5:33 EDT) Creatinine 0.76 0.66 - 1.25 mg/dl [facility] GFR, Calculated >60 >60 ml/min/1.7 3m2 [facility] 02/23/2014 5:33 EDT 02/23/2014 5:45 EDT us Endy Mack MD CHEMISTRY & BLOOD GAS ORDERABLE S Final Result Performing Organization Address [facility] de Phone Number [facility] [address] [place] [address] * (ABNORMAL) BUN (02/23/2014 5:33 EDT) BUN 9(L) 10 - 26 mg/dl [facility] 02/23/2014 5:33 EDT 02/23/2014 5:45 EDT us Endy Mack MD CHEMISTRY & BLOOD GAS ORDERABLE S Final Result Performing Organization Address [facility] de Phone Number [facility] [address] [place] [address] * ELECTROLYTES (02/23/2014 5:33 EDT) Sodium 141 136 - 145 mEq/L [facility] Potassium 4.0 3.5 - 5.0 mEq/L [facility] Chloride 106 96 - 110 mEq/L [facility] CO2 24 24 - 32 mEq/L [facility] 02/23/2014 5:33 EDT 02/23/2014 5:45 EDT us Endy Mack MD CHEMISTRY & BLOOD GAS ORDERABLE S Final Result Performing Organization Address [facility]/ZIP Co de Phone Number [facility] [address] [place] [address] * (ABNORMAL) PTT (02/23/2014 5:33 EDT) PTT 73(H) 26 - 37 secs [facility] Comment:Therapeutic Heparin range: 65-100 seconds Blood specimen (specimen) 02/23/2014 5:33 EDT 02/23/2014 5:45 EDT us Jermaine Tracy MD HEMATOLOGY & PF4 ORDERABLES Final Result Performing Organization Address [facility] de Phone Number [facility] [address] [place] [address] * (ABNORMAL) GLUCOSE, GLUCOMETER (02/22/2014 20:43 EDT) Glucose, Fingerstick 110(H) 70 - 100 mg/dl [facility] [employer] [place] [id number] [facility] Comment:Test Performed by [facility] 02/22/2014 20:4 3 EDT 02/22/2014 20:49 EDT us Rafy Lopez MD CHEMISTRY & BLOOD GAS ORD ERABLES Final Result Performing Organization Address [facility] de Phone Number [facility] [address] [place] [address] * INPATIENT ADD-ON (02/22/2014 19:20 EDT) Tests to be added PLEASE ADD CK, MB TO PREVIOUS TESTING [facility] Comment: THANK YOU CKMB Number for problems [id number] [facility] Accession number [id number] [facility] 02/22/2014 19:2 0 EDT 02/22/2014 19:23 EDT us Rafy Lopez MD HEMATOLOGY & PF4 ORDERABL ES Final Result Performing Organization Address [facility] Co de Phone Number [facility] [address] [place] [address] * CK MB WITH TOTAL CK (02/22/2014 17:21 EDT) CK 40 0 - 250 U/L [facility] MB <0.22 <4.21 ng/ml [facility] 02/22/2014 17:2 1 EDT 02/22/2014 17:32 EDT us Jermaine Tracy MD CHEMISTRY & BLOOD GAS ORDER CARTER Final Result [facility] [address] [place] [address] * TROPONIN I (02/22/2014 17:21 EDT) Troponin I (ng/mL) <0.034 <0.034 ng/ml [facility] Blood specimen (specimen) 02/22/2014 17:21 EDT 02/22/2014 17:32 EDT us Jermaine Tracy MD CHEMISTRY & BLOOD GAS ORDER CARTER Final Result Performing Organization Address [facility] Co de Phone Number [facility] [address] [place] [address] * (ABNORMAL) GLUCOSE, GLUCOMETER (02/22/2014 16:32 EDT) Glucose, Fingerstick 144(H) 70 - 100 mg/dl [facility] [employer] ID [id number] [facility] Comment:Test Performed by [facility] 02/22/2014 16:3 2 EDT 02/22/2014 16:36 EDT Rafy Lopez MD CHEMISTRY & BLOOD GAS ORD ERABLES Final Result Performing Organization Address City/[facility] Co de Phone Number [facility] [address] [place] [address] * (ABNORMAL) GLUCOSE, GLUCOMETER (02/22/2014 11:15 EDT) Glucose, Fingerstick 102(H) 70 - 100 mg/dl [facility] [employer] [place] [id number] [facility] Comment:Test Performed by [facility] 02/22/2014 11:1 5 EDT 02/22/2014 11:23 EDT Rafy Lopez MD CHEMISTRY & BLOOD GAS ORD ERABLES Final Result Performing Organization Address [facility] de Phone Number [facility] [address] [place] [address] * CK MB WITH TOTAL CK (02/22/2014 10:04 EDT) Pathologist [facility] CK 53 0 - 250 U/L [facility] Comment: Slight hemolysis Results may be affected due to hemolysis. MB <0.22 <4.21 ng/ml [facility] Comment: Slight hemolysis Results may be affected due to hemolysis. Blood specimen (specimen) 02/22/2014 10:04 EDT 02/22/2014 10:22 EDT Jermaine Tracy MD CHEMISTRY & BLOOD GAS ORDER CARTER Final Result Performing Organization Address [facility] de Phone Number [facility] [address] [place] [address] * TROPONIN I (02/22/2014 10:04 EDT) [facility] Troponin I (ng/mL) <0.034 <0.034 ng/ml [facility] Comment: Slight hemolysis Results may be affected due to hemolysis. Blood specimen (specimen) 02/22/2014 10:04 EDT 02/22/2014 10:22 EDT Jermaine Tracy MD CHEMISTRY & BLOOD GAS ORDER CARTER Final Result Performing Organization Address [facility] de Phone Number [facility] [address] [place] [address] * (ABNORMAL) GLUCOSE, GLUCOMETER (02/22/2014 6:30 EDT) Pathologist [facility] Glucose, Fingerstick 131(H) 70 - 100 mg/dl [facility] [employer] ID [id number] [facility] Comment:Test Performed by [facility] 02/22/2014 6:30 EDT 02/22/2014 6:45 EDT us Rafy Lopez MD CHEMISTRY & BLOOD GAS ORD ERABLES Final Result Performing Organization Address [facility] Co de Phone Number [facility] [address] [place] [address] * HEMAGRAM (02/22/2014 6:19 EDT) WBC 8.93 [...] ORDERABLES Fin al Result Performing Organization Address [facility] de Phone Number [facility] [address] [place] [address] * CREATININE (02/22/2014 6:19 EDT) Creatinine 0.80 0.66 - 1.25 mg/dl [facility] GFR, Calculated >60 >60 ml/min/1.7 3m2 [facility] 02/22/2014 6:19 EDT 02/22/2014 6:41 EDT Endy Mack MD CHEMISTRY & BLOOD GAS ORDERABLE S Final Result Performing Organization Address City/[facility]/ZIP Co de Phone Number [facility] [address] [place] [address] * (ABNORMAL) BUN (02/22/2014 6:19 EDT) Pathologist [facility] BUN 9(L) 10 - 26 mg/dl [facility] 02/22/2014 6:19 EDT 02/22/2014 6:41 EDT us Endy Mack MD CHEMISTRY & BLOOD GAS ORDERABLE S Final Result Performing Organization Address [facility] de Phone Number [facility] [address] [place] [address] * ELECTROLYTES (02/22/2014 6:19 EDT) [facility] Sodium 143 136 - 145 mEq/L [facility] Potassium 4.0 3.5 - 5.0 mEq/L [facility] Chloride 105 96 - 110 mEq/L [facility] CO2 28 24 - 32 mEq/L [facility] 02/22/2014 6:19 EDT 02/22/2014 6:41 EDT us Endy Mack MD CHEMISTRY & BLOOD GAS ORDERABLE S Final Result Performing Organization Address [facility] de Phone Number [facility] [address] [place] [address] * (ABNORMAL) PTT (02/22/2014 6:19 EDT) [facility] PTT 70(H) 26 - 37 secs [facility] Comment:Therapeutic Heparin range: 65-100 seconds Blood specimen (specimen) 02/22/2014 6:19 EDT 02/22/2014 6:41 EDT us Jermaine Tracy MD HEMATOLOGY & PF4 ORDERABLES Final Result Performing Organization Address [facility] de Phone Number [facility] [address] [place] [address] * CK MB WITH TOTAL CK (02/22/2014 2:01 EDT) [facility] CK 36 0 - 250 U/L [facility] MB <0.22 <4.21 ng/ml [facility] Blood specimen (specimen) 02/22/2014 2:01 EDT 02/22/2014 2:06 EDT Jermaine Tracy MD CHEMISTRY & BLOOD GAS ORDER CARTER Final Result Performing Organization Address [facility] de Phone Number [facility] [address] [place] [address] * (ABNORMAL) PTT (02/22/2014 2:01 EDT) [facility] PTT 71(H) 26 - 37 secs [facility] Comment:Therapeutic Heparin range: 65-100 seconds Blood specimen (specimen) 02/22/2014 2:01 EDT 02/22/2014 2:06 EDT Jermaine Tracy MD HEMATOLOGY & PF4 ORDERABLES Final Result Performing Organization Address [facility] de Phone Number [facility] [address] [place] [address] * TROPONIN I (02/22/2014 2:01 EDT) [facility] Troponin I (ng/mL) <0.034 <0.034 ng/ml [facility] Blood specimen (specimen) 02/22/2014 2:01 EDT 02/22/2014 2:06 EDT Jermaine Tracy MD CHEMISTRY & BLOOD GAS ORDER CARTER Final Result Performing Organization Address [facility] de Phone Number [facility] [address] [place] [address] * GLUCOSE, GLUCOMETER (02/21/2014 22:06 EDT) [facility] Glucose, Fingerstick 86 70 - 100 mg/dl [facility] [employer] ID [id number] [facility] Comment:Test Performed by [facility] 02/21/2014 22:0 6 EDT 02/21/2014 22:19 EDT us Rafy Lopez MD CHEMISTRY & BLOOD GAS ORD ERABLES Final Result Performing Organization Address [facility] de Phone Number [facility] [address] [place] [address] * (ABNORMAL) PTT (02/21/2014 21:36 EDT) PTT 64(H) 26 - 37 secs [facility] Comment:Therapeutic Heparin range: 65-100 seconds Blood specimen (specimen) 02/21/2014 21:36 EDT 02/21/2014 21:43 EDT us Jermaine Tracy MD HEMATOLOGY & PF4 ORDERABLES Final Result Performing Organization Address [facility] de Phone Number [facility] [address] [place] [address] * GLUCOSE, GLUCOMETER (02/21/2014 19:54 EDT) Glucose, Fingerstick 72 70 - 100 mg/dl [facility] [employer] [place] [id number] [facility] Comment:Test Performed by [facility] 02/21/2014 19:5 4 EDT 02/21/2014 19:56 EDT us Rafy Lopez MD CHEMISTRY & BLOOD GAS ORD ERABLES Final Result Performing Organization Address [facility] de Phone Number [facility] [address] [place] [address] * CREATININE (02/21/2014 19:08 EDT) Creatinine 0.72 0.66 - 1.25 mg/dl [facility] GFR, Calculated >60 >60 ml/min/1.7 3m2 [facility] Blood specimen (specimen) 02/21/2014 19:08 EDT 02/21/2014 19:19 EDT us Jermaine Tracy MD CHEMISTRY & BLOOD GAS ORDER CARTER Final Result Performing Organization Address [facility] Co de Phone Number [facility] [address] [place] [address] * (ABNORMAL) BUN (02/21/2014 19:08 EDT) BUN 8(L) 10 - 26 mg/dl [facility] Blood specimen (specimen) 02/21/2014 19:08 EDT 02/21/2014 19:19 EDT Jermaine Tracy MD CHEMISTRY & BLOOD GAS ORDER CARTER Final Result Performing Organization Address [facility] de Phone Number [facility] [address] [place] [address] * (ABNORMAL) HEMAGRAM (02/21/2014 19:08 EDT) WBC [...] PF4 ORDERABLES Final Result Performing Organization Address [facility] de Phone Number [facility] [address] [place] [address] * ELECTROLYTES (02/21/2014 19:08 EDT) Sodium 143 [...] Organization Address [facility] de Phone Number [facility] [address] [place] [address] * CK MB WITH TOTAL CK (02/21/2014 19:08 EDT) CK 38 0 - 250 U/L [facility] MB <0.22 <4.21 ng/ml [facility] Blood specimen (specimen) 02/21/2014 19:08 EDT 02/21/2014 19:19 EDT us Jermaine Tracy MD CHEMISTRY & BLOOD GAS ORDER CARTER Final Result Performing Organization Address [facility] de Phone Number [facility] [address] [place] [address] * TROPONIN I (02/21/2014 19:08 EDT) Troponin I (ng/mL) <0.034 <0.034 ng/ml [facility] Blood specimen (specimen) 02/21/2014 19:08 EDT 02/21/2014 19:19 EDT us Jermaine Tracy MD CHEMISTRY & BLOOD GAS ORDER CARTER Final Result Performing Organization Address [facility] de Phone Number [facility] [address] [place] [address] * EKG 12-LEAD (02/21/2014 18:59 EDT) 02/21/2014 18:5 9 EDT Narrative [facility] EKG - 02/22/2014 16:34 EDT ?[facility] ? Test Date: ?2014-02-21 Pat Name: ? ROMEO COELHO ?Department: ?? Roy 5 ? Room: ? ME506 Gender: ? M ?Benefit Authorizer: ?? [id number] : ?1965 ? Requested By: JERMAINE TRACY MD Order Number: [id number] ? Reading MD: ?? TUYET ADES MD ? Measurements Intervals ?[place] ? Rate: ? 63 ? P: ?10 [...] Date: 2014-02-21 Pat Name: ROMEO COELHO Department: [place] [address] Room: [facility] Gender: M Benefit Authorizer: [id number] : 1965 Requested By: JERMAINE TRACY MD Order Number: [id number] Reading MD: TUYET CASTRO MD Measurements Intervals [place] Rate: 63 P: 10 NE: 155 QRS: 15 QRSD: 101 T: 29 QT: 390 QTc: 400 Interpretive Statements SINUS RHYTHM Within Normal Limits Compared to ECG 02/15/2014 14:19:22 Sinus rhythm now present I reviewed the tracing and agreed or edited the report. ElectronicallySigned On 02-22-14 16:34:29 EDT by TUYET CASTRO MD. us Jermaine Tracy MD CARDIAC ECG ORDERABLES [place] Result [facility] EKG documented in this encounter Visit Diagnoses Diagnosis Unstable angina ([facility])- Primary Intermediate coronary syndrome Chest pain Chest pain, unspecified S/P coronary artery stent placement Postsurgical percutaneous transluminal coronary angioplasty status CAD (coronary artery disease) Coronary atherosclerosis of unspecified type of vessel, [place] or graft CAD (coronary artery disease) Coronary atherosclerosis of unspecified type of vessel, [place] or graft documented in this encounter Administered [...] 09/2013 documented in this encounter Care Teams Beautician Apprentice Relationship Specialty Start Date End Date Sarita Lim MD [address] [place] [address] PCP - General 12/17/11 documented as of this encounter
--- OUTSIDE RECORDS SUMMARY | 2024-08-19 14:57 | XMS_ITS | Encounter Summary ---
Author Organization [facility] Address [address] [place] [address] Care Team Providers Care Granite Polisher Apprentice Name Role Phone Coni Lim MD Primary Care Provider Reason for Visit * (Routine/Next Available) - Receiving Office to Obtain Authorization Specialty Diagnoses / Procedures Referred By Contac t Referred To Contact Procedures CT OUTSIDE IMAGES CERVICAL SPINE Unknown, Provider, MD Referral ID Status Reason Start Date Expiration Date Visits Requested Visits Authorized [id number] Receiving Office to Obtain Authorization 04/07/2023 1 1 Encounter Details Date Type Department Care Team (Latest Contact Info) Description 04/07/2023 20:11 EDT - 04/07/2023 20:13 EDT Hospital Encounter [facility] Secondary [place] Discharge Disposition: Home [...] on filedocumented in this encounter Care Teams Granite Polisher Apprentice Relationship Specialty Start Date End Date Coni Lim MD [address] [place] [id number] PCP - General 4/25/12 documented as of this encounter
--- OUTSIDE RECORDS SUMMARY | 2024-08-19 14:57 | XMS_ITS | Encounter Summary ---
Author Organization [facility] Address [address] [place] [address] Care Team Providers Care University Professor Name Role Phone Coni Lim MD Primary Care Provider Reason for Visit * (Routine/Next Available) - Receiving Office to Obtain Authorization Specialty Diagnoses / Procedures Referred By Contsigifredo t Referred To Contact Procedures CT OUTSIDE IMAGES HEAD Unknown, Provider, MD Referral ID Status Reason Start Date Expiration Date Visits Requested Visits Authorized [id number] Receiving Office to Obtain Authorization 04/07/2023 1 1 Encounter Details Date Type Department Care Team (Latest Contact Info) Description 04/07/2023 20:10 EDT Hospital Encounter [facility] [place] Discharge Disposition: Home [...] on filedocumented in this encounter Care Teams University Professor Relationship Specialty Start Date End Date Coni Lim MD [address] [place] [address] PCP - General 12/17/11 documented as of this encounter
--- OUTSIDE RECORDS SUMMARY | 2024-08-19 14:57 | XMS_ITS | Encounter Summary ---
Author Organization [facility] Address [address] [place] [address] Care Team Providers Care Park Maintainer Name Role Phone Coni Lim MD Primary Care Provider [phone] Encounter Details Date Type Department Care Team (Late st Contact Info) Description 09/30/2021 Lab Requisition [facility] Pathology & Laboratory Medicine - [facility] [address] [place] [address] Yoon Martinez MD [address] [place] [address] [address], [place] [id number] Encounter for screening for malignant neoplasm of [...] explore management options, if applicable. 10/01/2021 17:48 [facility] Final Diagnosis A. COLON, ASCENDING, POLYPS X5, BIOPSY: - Fragments of tubular adenomas. B. COLON, DESCENDING, POLYP, BIOPSY: - Hyperplastic polyp. C. COLON, SIGMOID, POLYPS X3, BIOPSY: - Hyperplastic polyps. D. RECTUM, POLYP, BIOPSY: - Tubular adenoma. 10/01/2021 17:48 [facility] Attestation By the signature below, the attending physician certifies that they have 1) personally conducted a gross and/or microscopic examination of the described specimen(s), and/or personally interpreted the results of laboratory testing of the described specimen(s), and 2) personally rendered or confirmed the above diagnosis. 10/01/2021 17:48 [facility] at 1748 Clinical History Colon CA screening, family Hx colon CA 10/01/2021 17:48 [facility] Gross Description A. Received in [...] D1. LENORE MACIAS(ASCP) 10/01/2021 7:36 10/01/2021 17:48 [facility] Performing Lab [facility] 10/01/2021 17:48 [facility] Scanned Images 10/01/2021 17:48 [facility] Tissue SPECIMEN FROM RECTUM / Unknown 09/30/2021 12:30 EST 09/30/2021 18:36 EST Tissue specimen (specimen) DESCENDING COLON STRUCTURE / Unknown 09/30/2021 12:30 EST 09/30/2021 18:36 EST Tissue specimen (specimen) SIGMOID COLON STRUCTURE / Unknown 09/30/2021 12:30 EST 09/30/2021 18:36 EST Tissue specimen (specimen) SPECIMEN FROM RECTUM / Unknown 09/30/2021 12:30 EST 09/30/2021 18:36 EST us Yoon aMrtinez MD PATHOLOGY ORDERABLES Fin al Result [facility] [address] [place] [address] documented in this encounter Visit Diagnoses Diagnosis Encounter for screening for malignant neoplasm of colon Special screening for malignant neoplasms, colon documented in this encounter Care Teams Park Maintainer Relationship Specialty Start Date End Date Coni Lim MD [address] [place] [id number] PCP - General 12/17/11 documented as of this encounter
--- OUTSIDE RECORDS SUMMARY | 2024-08-19 14:57 | XMS_ITS | Encounter Summary ---
Author Organization [facility] Address [address] [place] [address] Care Team Providers Care Commissioning Editor Name Role Phone Coni Lim MD Primary Care Provider Encounter Details Date Type Department Care Team (Late st Contact Info) Description 05/17/2022 Lab Requisition [facility] Pathology & Laboratory Medicine - [facility] [address] [place] [address] Outr Resulting Lab, Provider Social History Tobacco [...] Factor <8.6 <12.0 IU/mL 05/18/2022 15:59 EDT [facility] Blood VENOUS BLOOD / Unknown 05/16/2022 12:56 EDT 05/18/2022 15:42 EDT us Provider Outr Resulting Lab CHEMISTRY & BLOOD GA S ORDERABLES Final Result [facility] [address] [place] [address] * ANTI NUCLEAR AB (BERRY), IFA (05/16/2022 12:56 EDT) BERRY Interpretation Negative Negative 2021 13:48 EDT [facility] Comment:No titer performed, BERRY Screen is negative. Blood VENOUS BLOOD / Unknown 05/16/2022 12:56 EDT 05/18/2022 15:42 EDT Narrative [facility] - 05/19/2022 13:48 EDT Results were obtained with the INOVA NOVA Lite HEp-2 BERRY Kit by indirect immunofluorescence. us Provider Outr Resulting Lab IMMUNOLOGY AND SEROL OGY ORDERABLES Final Result [facility] [address] [place] [address] documented in this encounter Visit Diagnoses Not on filedocumented in this encounter Care Teams Commissioning Editor Relationship Specialty Start Date End Date Coni Lim MD [address] [place] [id number] PCP - General 12/17/11 documented as of this encounter
--- OUTSIDE RECORDS SUMMARY | 2024-08-19 14:57 | XMS_ITS | Encounter Summary ---
Author Organization [facility] Address [address] [place] [address] Care Team Providers Care Production Line Manager Name Role Phone Sarita Lim MD Primary Care Provider [phone] Encounter Details Date Type Department Care Team (Latest Contact Info) Description 03/15/2015 1:06 EDT - 03/16/2015 12:40 EDT Hospital Encounter [facility] [address], [place] [id number] Landon Dumont MD [address] [place] [phone] Venu Veliz MD [address] [place] [address] CVA (cerebral vascular accident) (CMS-HCC) ([facility]) (Primary Dx); tPA/rtPA given at another [...] Ischemic stroke Admitted from: Transfer from [facility] Principal/Final Diagnosis: Transient ischemic attack Additional Diagnoses: Hypertension Type 2 diabetes mellitus Hyperlipidemia Coronary artery disease Current tobacco smoking Suspected obstructive sleep apnea Hospital Course: Mr. Coelho is a 49-year-old right-handed male with a history of hypertension, hyperlipidemia, type 2 diabetes mellitus, coronary artery disease, and current tobacco smoking who presented to [facility] with acute onset right face arm and leg weakness after a transesophageal echocardiogram. 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 Patient [...] with your neurologist (03/21/15), Dr. Negron in [place] - Transient ischemic attack, neuro anatomically localizes [...] Mayorga MD Neurology Resident, PGY-3 Pager # [phone] (Pager [phone] after hours or on weekends) Attestation statement: I saw and examined the patient with the resident/fellow on 03/16/15. I agreewith the findings and plan of care documented in the resident's/fellow's note. The note has been edited prior to signing. Venu Veliz MD MSc Emergency Room Clerk [facility] Board certified Adult Neurology Adult Neurology, Neuro-Oncology and Neurophysiology [address] [place] [address], [phone] documented in this encounter Discharge Instructions * Appointments* Antonio Andersen - 03/16/2015 8:56 EDT Please follow-up with Dr. Edel Negron [facility]. [address], [address] [place] [address] Appointment is scheduled for Thursday, March 21 2015 at 3:00pm Please bring the CD containing imaging studies done while at [facility] documented in this encounter Medications at [...] arranged transportation with [facility] transportation. They will crab picker Pt outside [facility] at 12:45. Medicare IM has been signed. Nery Townsend HANDS ASSEMBLER #[id number] * Nery Townsend - 03/16/2015 1058 EDT Initial Case Management/Social Work Assessment and Discharge Plan /Readmission Risk Assessment Physician working diagnosis: Mr. Romeo Coelho is a right handed 49 y.o.-pvnh-etf-twkg has a pastmedical history of HTN (hypertension); HLD (hyperlipidemia); DMII (diabetes mellitus, type 2); CAD (coronary artery disease); Smoking; Depression; Fibromyalgia; and Gout. Patient (or designee) understanding of admission: Pt understands his admission Patient Contact Information: Pt's contact is his Dasia Coelho (Spouse) [phone] (H) [phone] (W) MEDICAL AND COMMUNITY SERVICES: Primary Care Provider: SARITA LIM MD (General) Specialists seen on a consistent basis: N/A Skilled home care services: N/A DME Provider: N/A Pharmacy: Alejandra Hawk in [facility] LIVING ARRANGEMENTS AND ACCESSIBILITY ISSUES: Apartment Are there any home access issues? No What in home social supports are available to the patient? Pt has support from his who is homewith Pt as she is also receiving disability. ADVANCED DIRECTIVES, POA &/or COLST IN PLACE: No CULTURAL, YARSANI and/or LANGUAGE factors affecting health care/discharge planning:: [...] Yes,PAL [facility]. Pt is now ready for DC. [...] collins full, visual acuity grossly normal, DERICK police communications operator III, IV, : EOMI with smooth pursuit [...] Radiology Imaging: CT head without contrast from [facility] was negative for intracranial hemorrhage MRI [...] right-sided weakness s/p GLENNA procedure at an [facility]. CT from [facility] didn't demonstrate intracranial hemorrhage. Predominant right-sided [...] given disc with imaging done here at [facility] to bring to appointment F/u with primary care provider (Sarita Lim) with particular emphasis on smoking cessation Antonio Andersen, MS III [phone] * Gertrude Linda - 03/16/2015 0901 EDT [facility] Rehabilitation Therapy Acute Therapies [facility] Occupational Therapy Initial Evaluation/Discontinue Note Date of Service: 03/16/2015 Reason for Referral: Evaluate and treat Precautions: Activity as tolerated, Ambulate and Fall precautions SUBJECTIVE: It feels back to normal-in reference to strength in R-UE. Pain: No pain reported during the interview. OBJECTIVE: Patient Profile: Romeo Coelho is a right hand dominant 49 y.o. male admitted on 03/15/2015 secondary to [facility] ED- STROKE W/LYTICS- TO M4 434.91 CEREBR ART OCCL UNSPEC W INFARCT[ICD-9-CM] The patient lives at [address] [facility] [address] History of Present Illness/Injury: Per neuro H&P by Dr. Veliz on 03/15/15: Chief Complaint: Right-sided weakness HPI: Mr. Romeo Coelho is a right handed 49 y.o.-hmad-mzd-bsol has a past medical history of HTN (hypertension); HLD (hyperlipidemia); DMII (diabetes mellitus, type 2); CAD (coronary artery disease); Smoking; Depression; Fibromyalgia; and Gout. Patient was transferred to from [facility] after administration of TPAfollowing sudden [...] normal tensive, patient was subsequently transferred to [facility] for higher level of care after administration [...] GOALS: Short Term Goals: - ?? - Jail Goals: - ?? - PLAN: Intervention: Discontinue occupational therapy at [facility]. 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 Code Status: Full Dispo: Likely home tomorrow Consults: None Rob Mayorga MD Neurology Resident, PGY-3 Pager # [phone] (Pager [phone] after hours or on weekends) Attestation statement: [...] his MRI today. Venu Veliz MD MSc Emergency Room Clerk [facility] Board certified Adult Neurology Adult Neurology, Neuro-Oncology and Neurophysiology [address] [facility], [address] * Antonio Andersen - 03/15/2015 1308 EDT [...] afternoon following a GLENNA procedure at an [facility]. He was last seen with out deficits at around 3:30pm yesterday following the GLENNA. Two hours later, a nurse noted that he was having right facial droop and he was immediately brought to the ED at [facility] where a stat CT head was performed and did not demonstrate intracranial hemorrhage. He didn't have any contraindications and thus was given tPA and was subsequently transported here to [facility]. 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 Coelho is a 49yo male with a PMH significant for HTN, HLD, T2DM, CAD, current smoker, and past history of a CVA (2004) and recent TIA who presented with right-sided weakness s/p GLENNA procedure at an [facility]. CT from [facility] didn't demonstrate intracranial hemorrhage. Predominant right-sided motor symptoms suggest lesion in the left posterior limb of internal capsule, likely etiology being microvascular disease due to underlying co-morbidities. Recommendations: CVA (cerebral vascular accident) - presumed microvascular etiology - f/u MRI head this evening around 8pm - continue telemetry monitoring - Q4 stroke neuro vital signs - GLENNA results pending from [facility] - PT/OT to assist with getting [...] Romeo Coelho is a right handed 49 y.o.-qnej-wii-djmn has a past medical history of HTN (hypertension); HLD (hyperlipidemia); DMII (diabetes mellitus, type 2); CAD (coronary artery disease); Smoking; Depression; Fibromyalgia; and Gout. Patient was transferred to from [facility] after administration of TPAfollowing sudden [...] normal tensive, patient was subsequently transferred to [facility] for higher level of care after administration [...] collins full, visual acuity grossly normal, PERRLA police communications operator III, IV, : EOMI with smooth pursuit [...] Rehab Code Status: full Elvira Gray MD [facility] Neurology Resident PGY-3 Pager # [phone] (# [phone] nights/weekends) 03/15/2015 3:35 Did patient have a stroke or TIA? Yes Type of Stroke Cerebral Infarction Stroke code: No Transfer from outside hospital: Yes Hospital Name: [facility] Initial Contact Time: patient received TPA at 2020 on March 14 On admission to [facility], NIHSS: NIHSS Testing Interval: 2 [...] during this hospitalization? PT: Yes OT: Yes ORTHODONTIST ASSISTANT: No; patient returned to prior level of [...] his MRI today. Venu Veliz MD MSc Emergency Room Clerk [facility] Board certified Adult Neurology Adult Neurology, Neuro-Oncology and Neurophysiology [address] [facility], [address] documented in this encounter Miscellaneous Notes * [...] home Response: Ready for discharge to home. Abnea Garcia RN 03/16/2015 10:50 * Plan of [...] assess per protocol D: [facility] s/p ischemic stroke. Received TPA prior to transfer to [facility]. A: neuro checks per TPA protocol. [...] EDT) 03/21/2015 8:17 EDT us Scan 2 Roll Scale Worker PROCEDURE/MINOR SURGICAL OR DERABLES Final Result * ECG REPORT - SCANNED (03/20/2015 22:44 EDT) 03/20/2015 22:4 4 EDT us Scan 2 Roll Scale Worker PROCEDURE/MINOR SURGICAL OR DERABLES Final Result * CREATININE (03/16/2015 4:06 EDT) Creatinine 0.77 0.66 - 1.25 mg/dl 03/16/2015 4:50 EDT [facility] GFR, Calculated 108 >60 ml/min/1.7 3m2 03/16/2015 4:50 EDT [facility] Comment: eGFR calculated using CKD-EPI equation for non Americans. Multiply eGFR by 1.16 for Americans. Blood specimen (specimen) BLOOD SPECIMEN / Unknown 03/16/2015 4:06 EDT 03/16/2015 4:18 EDT us Rob Mayorga MD CHEMISTRY & BLOOD GAS O RDERABLES Final Result [facility] [address] [place] [address] * (ABNORMAL) BUN (03/16/2015 4:06 EDT) BUN 9(L) 10 - 26 mg/dl 03/16/2015 4:50 [facility] Blood specimen (specimen) BLOOD SPECIMEN / Unknown 03/16/2015 4:06 EDT 03/16/2015 4:18 EDT us Rob Mayorga MD CHEMISTRY & BLOOD GAS O RDERABLES Final Result [facility] [address] [place] [address] * (ABNORMAL) HEMAGRAM AND DIFFERENTIAL (03/16/2015 4:06 EDT) Pathologist [facility] WBC 7.36 4.0 - 10.4 K/cmm 03/16/2015 4:45 [facility] RBC 4.80 4.36 - 5.78 M/cmm 03/16/2015 4:45 [facility] Hemoglobin 14.4 13.8 - 17.3 gm/dl 03/16/2015 4:45 [facility] HCT 42.4 39.5 - 50.2 % 03/16/2015 4:45 [facility] MCV 88 81 - 95 fl 03/16/2015 4:45 [facility] MCH 30.0 27.6 - 33.0 pg 03/16/2015 4:45 [facility] MCHC 34.0 32.8 - 36.4 gm/dl 03/16/2015 4:45 [facility] RDW-CV 13.6 11.8 - 14.1 % 03/16/2015 4:45 [facility] RDW-SD 41.6 36.5 - 45.9 fl 03/16/2015 4:45 [facility] PLT 163 141 - 320 K/cmm 03/16/2015 4:45 [facility] MPV 9.0 7.5 - 11.2 fl 03/16/2015 4:45 [facility] % Neutrophils 43.3(L) 45.5 - 79.7 % 03/16/2015 4:45 [facility] % Lymphocytes 42.5 15.0 - 46.8 % 03/16/2015 4:45 [facility] % Monocytes 7.7 1.8 - 12.0 % 03/16/2015 4:45 [facility] % Eosinophils 5.3 0.6 - 6.9 % 03/16/2015 4:45 [facility] % Basophils 1.2 0.2 - 1.4 % 03/16/2015 4:45 [facility] ABS Neutrophils 3.19 2.20 - 8.85 K/cmm 03/16/2015 4:45 [facility] ABS Lymphs 3.13 1.09 - 3.30 K/cmm 03/16/2015 4:45 [facility] ABS Monocytes 0.57 0.1 - 0.8 K/cmm 03/16/2015 4:45 [facility] ABS Eosinophils 0.39 0.03 - 0.61 K/cmm 03/16/2015 4:45 [facility] ABS Basophils 0.09 0.01 - 0.11 K/cmm 03/16/2015 4:45 [facility] Type of Diff: Automated 03/16/2015 4:45 [facility] Blood specimen (specimen) BLOOD SPECIMEN / Unknown 03/16/2015 4:06 EDT 03/16/2015 4:18 EDT us Elvira Gray MD PACKAGES & DNA PROBE ORDERABLES Final Result [facility] [address] [place] [address] * ELECTROLYTES (03/16/2015 4:06 EDT) Sodium 145 136 - 145 mEq/L 03/16/2015 4:50 [facility] Potassium 3.9 3.5 - 5.0 mEq/L 03/16/2015 4:50 EDT [facility] Chloride 108 96 - 110 mEq/L 03/16/2015 4:50 EDT [facility] CO2 25 24 - 32 mEq/L 03/16/2015 4:50 EDT [facility] Blood specimen (specimen) BLOOD SPECIMEN / Unknown 03/16/2015 4:06 EDT 03/16/2015 4:18 EDT us Elvira Gray MD CHEMISTRY & BLOOD GAS ORDERABLES Final Result Performing Organization Address City/[facility]/ZIP Co de Phone Number [facility] [address] [place] [address] * GLUCOSE, GLUCOMETER (03/15/2015 22:45 EDT) [facility] Signature Glucose, Fingerstick 91 70 - 100 mg/dl 03/15/2015 22:57 EDT [facility] Security Operations Center Operator ID [id number] 03/15/2015 22:57 EDT [facility] Comment:[facility] BLOOD SPECIMEN / Unknown 03/15/2015 22:45 EDT 03/15/2015 22:57 EDT us Landon Dumont MD CHEMISTRY & BLOOD GAS ORDERABLES Final Result Performing Organization Address [facility] Co de Phone Number [facility] [address] [place] [address] * MR HEAD WO CONTRAST (03/15/2015 21:07 [...] (ng/mL) <0.034 <0.034 ng/ml 03/15/2015 19:54 EDT [facility] Blood specimen (specimen) BLOOD SPECIMEN / Unknown 03/15/2015 18:17 EDT 03/15/2015 19:09 EDT Rob Mayorga MD CHEMISTRY & BLOOD GAS O RDERABLES Final Result [facility] [address] [place] [address] * GLUCOSE, GLUCOMETER (03/15/2015 17:19 EDT) Glucose, Fingerstick 100 70 - 100 mg/dl 03/15/2015 17:23 EDT [facility] Security Operations Center Operator ID [id number] 03/15/2015 17:23 EDT [facility] Comment:Test Performed by [facility] BLOOD SPECIMEN / Unknown 03/15/2015 17:19 EDT 03/15/2015 17:23 EDT us Landon Dumont MD CHEMISTRY & BLOOD GAS ORDERABLES Final Result Performing Organization Address City/[facility]/ZIP Co de Phone Number [facility] [address] [place] [address] * UA REFLEX (03/15/2015 16:16 EDT) UA Billing Microscopic not indicated. 03/15/2015 22:40 EDT [facility] URINE / Unknown 03/15/2015 1 6:16 EDT 03/15/2015 22:24 EDT Landon Dumont MD URINALYSIS ORDERABLES Final Resu lt Performing Organization Address City/[facility] Co de Phone Number [facility] [address] [place] [address] * URINALYSIS WITH REFLEX MICROSCOPIC (03/15/2015 16:16 EDT) Color, UA Yellow 03/15/2015 22:40 EDT [facility] Clarity, UA Clear 03/15/2015 22:40 EDT [facility] Glucose, UA Neg Neg 03/15/2015 22:40 T [facility] Bilirubin, UA Neg Neg 03/15/2015 22:40 EDT [facility] Ketones, UA Neg Neg 03/15/2015 22:40 T [facility] Specific Slaughters, Urine 1.010 1.001 - 1.035 03/15/2015 22:40 EDT [facility] Blood, UA Neg Neg 03/15/2015 22:40 T [facility] pH, UA 6.5 4.6 - 8.0 03/15/2015 22:40 EDT [facility] Protein, UA Neg Neg 03/15/2015 22:40 T [facility] Urobilinogen, UA 0.2 0.2 - 1.0 E.U./dl 03/15/2015 22:40 EDT [facility] Nitrite, UA Neg Neg 03/15/2015 22:40 EDT [facility] Leuk Esterase Neg Neg 03/15/2015 22:40 EDT [facility] URINE / Unknown 03/15/2015 1 6:16 EDT 03/15/2015 22:24 EDT us Landon Dumont MD URINALYSIS ORDERABLES Final Resu lt Performing Organization Address [facility] Co de Phone Number [facility] [address] [place] [address] * URINE CULTURE IF UA POSITIVE - NON POCT URINALYSIS ONLY (03/15/2015 16:16 EDT) Culture if Indicated Culture not indicated by urinalysis results. 03/15/2015 22:49 EDT [facility] TOPOGRAPHY UNKNOWN / Unknown 03/15/2015 16:16 EDT 03/15/2015 22:24 EDT us Landon Dumont MD MICROBIOLOGY - GENERAL ORDERABLE S Final Result Performing Organization Address [facility] de Phone Number [facility] [address] [place] [address] * VL CAROTID/VERTEBRAL DUPLEX BILATERAL (03/15/2015 16:06 EDT) Anatomical Region Laterality Modality Other 03/15/2015 16:0 6 EDT Narrative 03/16/2015 9:40 EDT [facility] Diagnostic Laboratory [facility] [address] [place] [address] Technologist: Mono Hernandez IMPRESSIONS 1. 16-49% stenosis [...] homogeneous plaque. Electronically signed by: Satnam Lee [id number] Procedure Note Satnam Lee MD - 03/16/2015 Vascular Diagnostic Laboratory [facility], [facility] [address] [place] [address] Technologist: Mono Hernandez IMPRESSIONS 1. 16-49% stenosis [...] homogeneous plaque. Electronically signed by: Satnam Lee [id number] Rob Mayorga MD [facility] [place] VASCULAR ORDERAB LES Final Result * [...] IMPRESSION: No acute disease. Rob Mayorga MD [facility] DIAGNOSTIC IMAGING ORDERABLES Final Result * (ABNORMAL) GLUCOSE, GLUCOMETER (03/15/2015 11:38 EDT) Glucose, Fingerstick 137(H) 70 - 100 mg/dl 03/15/2015 11:40 EDT [facility] Security Operations Center Operator ID [id number] 03/15/2015 11:40 EDT [facility] Comment:Test Performed by [facility] BLOOD SPECIMEN / Unknown 03/15/2015 11:38 EDT 03/15/2015 11:40 EDT Landon Dumont MD CHEMISTRY & BLOOD GAS ORDERABLES Final Result [facility] [address] [place] [address] * EKG 12-LEAD (03/15/2015 10:54 EDT) 03/15/2015 10:5 4 EDT Narrative [facility] - 03/19/2015 10:49 EDT ? [facility] ? Test Date: ?2015-03-15 Pat Name: ? ROMEO COELHO ?Department: ?? Roy 4 ? Room: ? M401 Gender: ? M ?Black Leather Buffer: ?? [id number] : ?1965 ? Requested By: ALYSSIA Basilio Order Number: [id number] ? Reading MD: ?? VILMA BENSON MD ? Measurements Intervals ?[place] ? Rate: ? 65 ? P: ?-5 DE: ? 145 ?QRS: ?24 QRSD: ? 90 ? T: ?30 QT: ? 385 ? QTc: ?403 ? Interpretive Statements SINUS RHYTHM Compared to ECG 02/21/2014 18:59:09 No significant changes I reviewed the tracing and have either agreed or edited the findings in this report. Electronically Signed On 03-19-15 10:49:51 EDT by VILMA BENSON MD. Procedure Note Vilma Benson Jr., MD - 03/19/2015 [facility] Test Date: 2015-03-15 Pat Name: ROMEO COELHO Department: [place] [address] Room: [facility] Gender: M Black Leather Buffer: [id number] : 1965 Requested By: ALYSSIA WINSTON Order Number: [id number] Reading MD: VILMA BENSON MD Measurements Intervals [place] Rate: 65 P: -5 DE: 145 QRS: 24 QRSD: 90 T: 30 QT: 385 QTc: 403 Interpretive Statements SINUS RHYTHM Compared to ECG 02/21/2014 18:59:09 No significant changes I reviewed the tracing and have either agreed or edited the findings inthis report. Electronically Signed On 03-19-15 10:49:51 EDT by VILMA LIZAMA. us Rob Mayorga MD CARDIAC ECG ORDERABLES Final Result [facility] EKG * TROPONIN I (03/15/2015 10:45 EDT) Troponin I (ng/mL) <0.034 <0.034 ng/ml 03/15/2015 11:31 EDT [facility] Blood specimen (specimen) BLOOD SPECIMEN / Unknown 03/15/2015 10:45 EDT 03/15/2015 11:07 EDT us Rob Mayorga MD CHEMISTRY & BLOOD GAS O RDERABLES Final Result Performing Organization Address [facility]/ZIP Co de Phone Number [facility] [address] [place] [address] * (ABNORMAL) GLUCOSE, GLUCOMETER (03/15/2015 7:42 EDT) Glucose, Fingerstick 108(H) 70 - 100 mg/dl 03/15/2015 7:44 EDT [facility] Security Operations Center Operator ID [id number] 03/15/2015 7:44 EDT [facility] Comment:[facility] BLOOD SPECIMEN / Unknown 03/15/2015 7:42 EDT 03/15/2015 7:44 EDT us Landon Dumont MD CHEMISTRY & BLOOD GAS ORDERABLES Final Result [facility] [address] [place] [address] * MRSA MOLECULAR DETECTION (03/15/2015 6:00 EDT) Result No Staphylococcus aureus detected by PCR. 03/15/2015 9:35 EDT [facility] Specimen of unknown material (specimen) NASAL ROUTE / Unknown 03/15/2015 6:00 EDT 03/15/2015 7:31 EDT Landon Dumont MD MICROBIOLOGY - GENERAL ORDERABLE S Final Result [facility] [address] [place] [address] * (ABNORMAL) HEMAGRAM AND DIFFERENTIAL (03/15/2015 1:52 EDT) WBC 8.42 4.0 - 10.4 K/cmm 03/15/2015 3:40 [facility] RBC 4.87 4.36 - 5.78 M/cmm 03/15/2015 3:40 [facility] Hemoglobin 14.5 13.8 - 17.3 gm/dl 03/15/2015 3:40 [facility] HCT 43.2 39.5 - 50.2 % 03/15/2015 3:40 [facility] MCV 89 81 - 95 fl 03/15/2015 3:40 [facility] MCH 29.8 27.6 - 33.0 pg 03/15/2015 3:40 [facility] MCHC 33.6 32.8 - 36.4 gm/dl 03/15/2015 3:40 [facility] RDW-CV 13.7 11.8 - 14.1 % 03/15/2015 3:40 [facility] RDW-SD 42.0 36.5 - 45.9 fl 03/15/2015 3:40 [facility] PLT 151 141 - 320 K/cmm 03/15/2015 3:40 [facility] MPV 8.7 7.5 - 11.2 fl 03/15/2015 3:40 EDT [facility] % Neutrophils 51.2 45.5 - 79.7 % 03/15/2015 3:40 [facility] % Lymphocytes 35.1 15.0 - 46.8 % 03/15/2015 3:40 [facility] % Monocytes 7.4 1.8 - 12.0 % 03/15/2015 3:40 [facility] % Eosinophils 4.4 0.6 - 6.9 % 03/15/2015 3:40 [facility] % Basophils 1.9(H) 0.2 - 1.4 % 03/15/2015 3:40 [facility] ABS Neutrophils 4.31 2.20 - 8.85 K/cmm 03/15/2015 3:40 [facility] ABS Lymphs 2.95 1.09 - 3.30 K/cm 03/15/2015 3:40 [facility] ABS Monocytes 0.63 0.1 - 0.8 K/cmm 03/15/2015 3:40 [facility] ABS Eosinophils 0.37 0.03 - 0.61 K/cmm 03/15/2015 3:40 [facility] ABS Basophils 0.16(H) 0.01 - 0.11 K/cmm 03/15/2015 3:40 [facility] Type of Diff: Automated 03/15/2015 3:40 [facility] Blood specimen (specimen) BLOOD SPECIMEN / Unknown 03/15/2015 1:52 EDT 03/15/2015 3:30 EDT us Elvira Gray MD PACKAGES & DNA PROBE ORDERABLES Final Result [facility] [address] [place] [address] * ELECTROLYTES (03/15/2015 1:52 EDT) Sodium 143 136 - 145 mEq/L 03/15/2015 4:10 T [facility] Potassium 3.8 3.5 - 5.0 mEq/L 03/15/2015 4:10 EDT [facility] Chloride 109 96 - 110 mEq/L 03/15/2015 4:10 EDT [facility] CO2 24 24 - 32 mEq/L 03/15/2015 4:10 EDT [facility] Blood specimen (specimen) BLOOD SPECIMEN / Unknown 03/15/2015 1:52 EDT 03/15/2015 3:30 EDT Elvira Gray MD CHEMISTRY & BLOOD GAS ORDERABLES Final Result Performing Organization Address City/[facility]/ZIP Co de Phone Number [facility] [address] [place] [address] * TSH (03/15/2015 1:52 EDT) TSH 1.97 0.35 - 5.00 uIU/ml 03/15/2015 10:51 EDT [facility] Blood specimen (specimen) BLOOD SPECIMEN / Unknown 03/15/2015 1:52 EDT 03/15/2015 3:30 EDT Elvira Gray MD CHEMISTRY & BLOOD GAS ORDERABLES Final Result Performing Organization Address City/[facility] Co de Phone Number [facility] [address] [place] [address] * LIPID PROFILE (INCLUDES CHOLESTEROL, TRIGLYCERIDES, HDL, LDL) (03/15/2015 1:52 EDT) Cholesterol 118 mg/dl 03/15/2015 4:10 EDT [facility] Comment: Desirable:<200 Borderline High:200-239 High:>en=119 Triglycerides 274 mg/dl 03/15/2015 4:10 T [facility] Comment: Normal:<150 Borderline High:150-199 High:200-499 Very High:>so=411 HDL 30 mg/dl 03/15/2015 4:10 T [facility] Comment: Low:<40 Normal:40-60 Desirable: >60 LDL, Calculated 33 mg/dl 5 4:10 EDT [facility] Comment: Optimal:<100 Near Optimal:100-129 Borderline High:130-159 High:160-189 Very High:>nc=036 Chol/HDL Ratio 3.9 03/15/2015 4:10 EDT [facility] Fasting? Unknown 03/15/2015 3:30 EDT [facility] Non HDL Cholesterol 88 mg/dl 03/15/2015 4:10 EDT [facility] Comment: Desirable:<130 Borderline:130-159 High: 160-189 Very High: >jp=664 Blood specimen (specimen) BLOOD SPECIMEN / Unknown 03/15/2015 1:52 EDT 03/15/2015 3:30 EDT Elvira Gray MD CHEMISTRY & BLOOD GAS ORDERABLES Final Result Performing Organization Address [facility] de Phone Number [facility] [address] [place] [address] * HEMOGLOBIN A1C (03/15/2015 1:52 EDT) Hemoglobin A1C 6.4 % 03/15/2015 9:40 EDT [facility] Comment: Reference Range: <5.7% Normal 5.7-6.4% Increased risk for diabetes =>6.5% Diagnostic for diabetes (if confirmed) The A1c goal for non adults in general is <7%. The A1c goal for selected patients may be significantly lower than 7% if this can be achieved without significant hypoglycemia or other adverse effects of treatment. Est Avg Glucose 137 mg/dl 5 9:40 EDT [facility] Comment: eAG represents the A1c result expressed as average glucose in mg/dl. Blood specimen (specimen) BLOOD SPECIMEN / Unknown 03/15/2015 1:52 EDT 03/15/2015 3:30 EDT us Elvira Gray MD CHEMISTRY & BLOOD GAS ORDERABLES Final Result Performing Organization Address [facility] de Phone Number [facility] [address] [place] [address] * (ABNORMAL) BUN (03/15/2015 1:52 EDT) BUN 9(L) 10 - 26 mg/dl 03/15/2015 4:10 EDT [facility] Blood specimen (specimen) BLOOD SPECIMEN / Unknown 03/15/2015 1:52 EDT 03/15/2015 3:30 EDT us Elvira Gray MD CHEMISTRY & BLOOD GAS ORDERABLES Final Result Performing Organization Address [facility] Co de Phone Number [facility] [address] [place] [address] * CREATININE (03/15/2015 1:52 EDT) Creatinine 0.81 0.66 - 1.25 mg/dl 03/15/2015 4:10 EDT [facility] GFR, Calculated 106 >60 ml/min/1.7 3m2 03/15/2015 4:10 EDT [facility] Comment: eGFR calculated using CKD-EPI equation for non Americans. Multiply eGFR by 1.16 for Americans. Blood specimen (specimen) BLOOD SPECIMEN / Unknown 03/15/2015 1:52 EDT 03/15/2015 3:30 EDT Result Julianne Gray MD CHEMISTRY & BLOOD GAS ORDERABLES Final Result Performing Organization Address [facility] Co de Phone Number [facility] [address] [place] [id number] * SCREENING GLUCOSE (03/15/2015 1:52 EDT) Glucose, Screening 98 70 - 100 mg/dl 03/15/2015 4:10 EDT [facility] Blood specimen (specimen) BLOOD SPECIMEN / Unknown 03/15/2015 1:52 EDT 03/15/2015 3:30 EDT us Elvira Gray MD CHEMISTRY & BLOOD GAS ORDERABLES Final Result Performing Organization Address [facility]/ZIP Co de Phone Number [facility] [address] [place] [address] documented in this encounter Visit Diagnoses Diagnosis CVA (cerebral vascular accident) ([facility])- Primary Unspecified cerebral artery occlusion with cerebral infarction CVA (cerebral vascular accident) ([facility]) Unspecified cerebral artery occlusion with cerebral [...] Gomez RN)[phone] (Rate Documented - Provider: Emmy Gomez, VERO)[id number] (Rate Documented - Provider: Emmy Gomez, [...] 02/22 documented in this encounter Care Teams Production Line Manager Relationship Specialty Start Date End Date Sarita Lim MD [address] [place] [address] PCP - General 12/17/11 documented as of this encounter
--- OUTSIDE RECORDS SUMMARY | 2024-08-19 14:57 | XMS_ITS | Encounter Summary ---
Author Organization [facility] Address [address] [place] [address] Care Team Providers Care Turbine Engineer Name Role Phone Coni Lim MD Primary Care Provider [phone] Encounter Details Date Type Department Care Team (Latest Contact Info) Description 01/28/2016 9:36 EDT - 01/28/2016 23:59 EDT Hospital Encounter [address] [address] Unknown, Provider, MD Discharge Disposition: Home or [...] Code Departure Means Destination Home or Self Long Term documented in this encounter Plan of Treatment Not on file documented as of this encounter Visit Diagnoses Not on filedocumented in this encounter Care Teams Turbine Engineer Relationship Specialty Start Date End Date Coni Lim MD [address] [place] [address] PCP - General 12/17/11 documented as of this encounter
--- OUTSIDE RECORDS SUMMARY | 2024-08-19 14:57 | XMS_ITS | Encounter Summary ---
Author Organization [facility] Address [address] [place] [address] Care Team Providers Care Die Set Up Worker Name Role Phone Coni Lim MD Primary Care Provider Encounter Details Date Type Department Care Team (Late st Contact Info) Description 01/14/2022 Lab Requisition [facility] Pathology & Laboratory Medicine - [facility] [address] [place] [address] Kevin Landaverde MD [address] [place] [id number] Encounter for other general examination Social History [...] Name Priority Date/Time Associated Diagnosis Comments NON DIRECTOR MEDICAL SAFETY/FNA CYTOLOGY Today 01/13/2022 8:35 EDT Encounter for other general examination documented in this encounter Results * NON DIRECTOR MEDICAL SAFETY/FNA CYTOLOGY (01/13/2022 8:35 EDT) Note to Patient The following pathology results have been interpreted by your pathologist and may be available to you before your health provider has had the opportunity to review them. Please allow time for your provider to receive these results and explore management options, if applicable. 01/15/2022 12:10 [facility] Final Diagnosis THYROID, RIGHT LOBE, NODULE, ULTRASOUND-GUIDE D FINE NEEDLE ASPIRATION: - Non-diagnostic aspirate. See comment. 01/15/2022 12:10 [facility] Diagnosis Comment Smears are pauci-cellular [...] molecular testing as clinically indicated. 01/15/2022 12:10 [facility] Attestation There was significant resident/fellow involvement in the diagnostic evaluation of this case. By the signature below, the attending physician certifies that they have personally conducted a gross and/or microscopic examination of the described specimens and rendered or confirmed the above diagnosis. 01/15/2022 12:10 T [facility] at 1210 Rapid Diagnosis THYROID, [...] by Dr. Melgar assisting Dr. Landaverde at [facility] on 01/13/22. 01/15/2022 12:10 EDT [facility] Clinical History Right thyroid nodule 01/15/2022 12:10 T [facility] Gross Description A. 8 fixed prepared slides, 1 air dried prepared slide, and 1 tube of CytoLyt were received and processed by selective cellular enhancement technique. 01/15/2022 12:10 T [facility] Resident/Brent w: Daniel Christensen DO 01/15/2022 12:10 T [facility] Performing Lab [facility] 01/15/2022 12:10 T [facility] Scanned Images 01/15/2022 12:10 [facility] Fine Needle Aspirate ENTIRE RIGHT LOBE OF THYROID GLAND / Unknown 01/13/2022 8:35 EDT 01/14/2022 6:34 EDT us Kevinchristi Landaverde MD PATHOLOGY ORDERABLES Final Resul t [facility] [address] [place] [address] documented in this encounter Visit Diagnoses Diagnosis Encounter for other general examination documented in this encounter Care Teams Die Set Up Worker Relationship Specialty Start Date End Date Coni Lim MD [address] [place] [id number] PCP - General 12/17/11 documented as of this encounter
--- OUTSIDE RECORDS SUMMARY | 2024-08-19 14:57 | XMS_ITS | Encounter Summary ---
Author Organization [facility] Address [address] [place] [address] Care Team Providers Care Latex Spooler Name Role Phone Coni Lim MD Primary Care Provider [phone] Encounter Details Date Type Department Care Team (Late st Contact Info) Description 01/28/2016 Results Only [facility] [phone] Romi Montanez MD [address] [place] [phone] Social History Tobacco Use Types Packs/Day [...] ? ROMEO COE ? Accession #: ? [id number] ? : ? 1965 (Age: 50) ??M [...] Morgan 01/30/2016 9:50 AM End of Report [facility] 01/28/2016 8:56 EDT 01/30/2016 8:56 EDT us Romi Montanez MD PATHOLOGY ORDERABLES Final Result [facility] [address] [place] [address] documented in this encounter Visit Diagnoses Not on filedocumented in this encounter Care Teams Latex Spooler Relationship Specialty Start Date End Date Coni Lim MD [address] [place] [id number] PCP - General 12/17/11 documented as of this encounter
--- OUTSIDE RECORDS SUMMARY | 2024-08-19 14:57 | XMS_ITS | Encounter Summary ---
Author Organization [facility] Address [address] [place] [address] Care Team Providers Care Food Editor Name Role Phone Coni Lim MD Primary Care Provider [phone] Reason for Visit * (Routine/Next Available) - Receiving Office to Obtain Authorization Specialty Diagnoses / Procedures Referred By Contsigifredo t Referred To Contact Procedures XR OUTSIDE IMAGES CHEST Unknown, Provider, MD Referral ID Status Reason Start Date Expiration Date Visits Requested Visits Authorized [id number] Receiving Office to Obtain Authorization 04/07/2023 1 1 Encounter Details Date Type Department Care Team (Latest Contact Info) Description 04/07/2023 20:10 EDT Hospital Encounter [facility] Secondary Reads [place] Discharge Disposition: [...] filedocumented in this encounter Care Teams Food Editor Relationship Specialty Start Date End Date Coni Lim MD [address] [place] [address] PCP - General 12/17/11 documented as of this encounter
--- OUTSIDE RECORDS SUMMARY | 2024-08-19 14:58 | XMS_ITS | Encounter Summary ---
Author Organization [facility] Address [address] [place] [address] Care Team Providers Care Human Resources Executive Assistant Name Role Phone Sarita Lim MD Primary Care Provider [phone] Reason for Referral * Consult (Routine) - Closed Specialty Diagnoses / Procedures Referred By Contac t Referred To Contact Diagnoses CAD (coronary artery disease) S/P coronary artery stent placement NSTEMI (non-ST elevated myocardial infarction) ([facility]) Kemi Vo NP Heitzman, Mark, MD Phone: tel: fax: Referral ID Status Reason Start Date Expiration Date V isits Requested Visits Authorized [id number] Closed Specialty Services Required 02/15/2014 1 1 Question Answer Reason for Request: post NSTEMI post pci Scheduling Comments (optional ? describe specific scheduling needs if applicable): 1 month Expected Discharge Date (Inpatient Only): 02/16/2014 Comments Please schedule in [address] Leyva at [facility] Cardiology clinic * Consult (Routine) - Closed Specialty Diagnoses / Procedures Referred By Contac t Referred To Contact Cardiac Rehabilitation Diagnoses CAD (coronary artery disease) S/P coronary artery stent placement NSTEMI (non-ST elevated myocardial infarction) ([facility]) Kemi Vo NP Referral ID Status Reason Start Date Expiration Date V isits Requested Visits Authorized [id number] Closed Specialty Services Required 02/15/2014 1 1 Question Answer Reason for Request: post NSTEMI, CAD, post pci Scheduling Comments (optional ? describe specific scheduling needs if applicable): 1 week Expected Discharge Date (Inpatient Only): 02/16/2014 Comments Please refer to cardiac rehab at [facility] Encounter Details Date Type Department Care Team (Late st Contact Info) Description 02/15/2014 13:04 EDT - 02/16/2014 15:32 EDT Hospital Encounter [facility] Cardiac/Telemetry Unit [address] [place] [address] Mahi Mcginnis MD [address] [facility] Level [address] [place] [address] Chest pain (Primary Dx); CAD (coronary artery disease); Unstable angina ([facility]); S/P coronary artery stent placement; NSTEMI (non-ST elevated myocardial infarction) ([facility]) Discharge Disposition: Home or Self Care Social [...] hx of of CAD s/p PCI at [facility] in May 2012 and Jul 2013, tobacco [...] up was requested with Dr. Leyva at [facility] Cardiology. Clinical Issues Needing Follow-up: None [...] Rehabilitation Please refer to cardiac rehab at [facility] Reason for Request: post NSTEMI, CAD, [...] in [address] Leyva at [facility] Cardiology clinic Reason for Request: [...] Vo NP Additional Information: Please see your Member Certification Manager Dr Adithya Leyva in [facility], on February at [address] Leyva's telephone number is [phone]. Follow-Up Labs and Tests: None Sophie Salinas MD 02/16/2014 13:57 ATTENDING Attestation statement: I saw and examined the patient with the resident. I agree with the findings and plan of care documented in the resident's note. Vilma Benson Jr., MD fleet maintenance foreman [facility] Pager [phone] documented in this encounter Discharge Instructions * Appointments* Pillsbury Mariah - 02/16/2014 13:41 EDT Please see your Member Certification Manager Dr Adithya Leyva in [facility], on February at [address] Leyva's telephone number is [phone]. 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 His name is Sal. Patient aware. Katia Nichols RN [facility] #[id number] * Sophie Salinas MD - 02/15/2014 1600 EDT Cardiology Post Procedure Check: S: [facility] today. Patient denies chest pain, palpitations, shortness [...] Salinas MD MPH - PGY 2 Pager [phone] 02/15/2014 * Vilma Benson Jr., MD - [...] or concerns. Sincerely, Vilma Benson Jr. MD fleet maintenance foreman [facility] Pager # [phone] * Katia Nichols [...] POA &/or COLST IN PLACE: No CULTURAL, JEWISH and/or LANGUAGE factors affecting health care/discharge planning:: [...] with hx of CAD s/p PCI at [facility] in May 2012 and Jul 2013, tobacco [...] clinical course Sophie Salinas M.D. M.P.H PGY-2, #[id number] Cosigned by Elias Ge MD at 02/15/2014 12:59 EDT * Nathan Tyson MD - 02/14/2014 8483 EDT 48 with PMH of HTN, diabetes, dyslipidemia, smoker, coronary artery disease S/P stents in [facility] May of 2012 in Julyo13 was [...] cad (s/p PCI with 3 stents at [facility]), htn, hld, dmii, who presents with [...] clinical course Farhan Alfaro MD Pager # [phone] 02/14/2014 22:33 I have seen and evaluated the patient. I agree with the assessment and plan as outlined above by Dr. Alfaro. Mr. Coelho has known CAD and is s/p PCI at [facility] on at least 2 occassions. He now presents with a clinical history c/w unstable angina. The plan if for [facility] today. The patient is aware and agrees. He also needs risk factor modification - smoking cessation. We emphasized the importance of this toMr. Coelho. ELIAS GE MD Attending Member Certification Manager documented in this encounter Procedure Notes * Vilma Benson Jr., MD - 02/15/2014 1204 EDT Images from the original note were not included. Cardiovascular Catheterization Laboratory Preliminary Report -- Catheterization Date of Service/Procedure: 02/15/2014 Attending Physician: Vilma Benson Jr., MD Pump Erector Helper: Kemi Vo NP Pre-Procedure Diagnosis/Indication: Romeo Coelho [...] artery Procedure: He was brought to the [facility] Cardiac Catheterization Laboratory for the [...] distress. Will continue to assess and monitor. Rsoario Russo RN 02/16/2014 13:20 * Plan of Care - Asad Bauman RN - 02/15/2014 9744 EDT Problem: CIRCULATORY STATUS Goal: Patient Has [...] Care - Gina Mix RN - 02/15/2014 0820 EDT Problem: Acute Ischemic Pain - Cardiac [...] Care - Asad Bauman RN - 02/14/2014 8482 EDT Problem: HOSPITAL ORIENTATION/SAFETY Goal: Oriented To Hospital Environment Outcome: Completed Date Met: 02/14/14 D: Patient arrived to [place] [address]. Vital signs noted, and tele applied. Patient [...] 0/10 CP. Plan is for [facility] in AM. 0018: Patient states [...] stent placement NSTEMI (non-ST elevated myocardial infarction) ([facility]) Ordered: 02/15/2014 AMB CONS/FOLLOW UP CARDIOLOGY Outpatient Referral Routine CAD (coronary artery disease) S/P coronary artery stent placement NSTEMI (non-ST elevated myocardial infarction) ([facility]) Ordered: 02/15/2014 documented as of this encounter [...] 09/05/2015 10:2 4 EST us Scan 2 General Adjuster PROCEDURE/MINOR SURGICAL OR DERABLES Final Result * ECG REPORT - SCANNED (02/21/2014 15:36 EDT) 02/21/2014 15:3 6 EDT us Scan 2 General Adjuster PROCEDURE/MINOR SURGICAL OR DERABLES Final Result * INVASIVE CARDIOLOGY REPORT-SCANNED (02/21/2014 15:36 EDT) 02/21/2014 15:3 6 EDT us Scan 2 General Adjuster PROCEDURE/MINOR SURGICAL OR DERABLES Final Result * ECG REPORT - SCANNED (02/20/2014 10:15 EDT) 02/20/2014 10:1 5 EDT us Scan 2 General Adjuster PROCEDURE/MINOR SURGICAL OR DERABLES Final Result * ECG REPORT - SCANNED (02/20/2014 10:03 EDT) 02/20/2014 10:0 3 EDT us Scan 2 General Adjuster PROCEDURE/MINOR SURGICAL OR DERABLES Final Result * ECG REPORT - SCANNED (02/17/2014 15:12 EDT) 02/17/2014 15:1 2 EDT us Scan 2 General Adjuster PROCEDURE/MINOR SURGICAL OR DERABLES Final Result * ECG REPORT - SCANNED (02/17/2014 15:10 EDT) 02/17/2014 15:1 0 EDT us Scan 2 General Adjuster PROCEDURE/MINOR SURGICAL OR DERABLES Final Result * (ABNORMAL) GLUCOSE, GLUCOMETER (02/16/2014 12:01 EDT) Glucose, Fingerstick 133(H) 70 - 100 mg/dl [facility] Call Person ID [id number] [facility] Comment:Test Performed by [facility] [employer] 02/16/2014 12:0 1 EDT 02/16/2014 12:02 EDT us Mahi Mcginnis MD CHEMISTRY & BLOOD GAS ORDER CARTER Final Result [facility] [address] [place] [address] * ECHOCARDIOGRAM (02/16/2014 12:00 EDT) Anatomical Region Laterality Modality Other 02/16/2014 12:0 0 EDT Narrative 02/16/2014 12:53 EDT *Interpreting Group:* *[facility]* [address] [place] [address] *STUDY CONCLUSIONS* Summary: 1. Left ventricle: The [...] Mcginnis MD REFERRING ?Sarita Lim PERFORMING ?? [facility], ORDERING ? Sophie Salinas REFERRING ?Sophie Salinas FLOORING SALES MANAGER ??Latoya Murcia *PROCEDURE DATA* Procedure information: ??This study was interpreted by [facility] at [facility]. ??Study status: ??Routine. Transthoracic echocardiography. [...] 02/16/2014 12:53 Procedure Note 02/16/2014 *Interpreting Group:* *[facility]* [address] [place] [address] *STUDY CONCLUSIONS* Summary: 1. Left ventricle: The cavity size was normal. Wall thickness was normal. Systolic function was normal. The estimated ejection fraction [id number]%. Wall motion was normal; there were no [...] Kajal ORDERING Sophie Salinas REFERRING Sophie Salinas FLOORING SALES MANAGER Latoya Murcia *PROCEDURE DATA* Procedure information: This study was interpreted by [facility] at [facility]. Study status: Routine.Transthoracic echocardiography. M-mode, [...] Fi nal Result [facility] [address] [place] [address] * (ABNORMAL) HEMAGRAM (02/16/2014 5:53 EDT) WBC [...] ORDERABLES Fi nal Result Performing Organization Address [facility] Co de Phone Number [facility] [address] [place] [address] * PTT (02/16/2014 5:53 EDT) PTT 30 26 - 37 secs [facility] Comment:Therapeutic Heparin range: 65-100 seconds Blood specimen (specimen) 02/16/2014 5:53 EDT 02/16/2014 5:59 EDT us Mahi Mcginnis MD HEMATOLOGY & PF4 ORDERABLES Final Result Performing Organization Address [facility] de Phone Number [facility] [address] [place] [address] * CREATININE (02/16/2014 5:53 EDT) Creatinine 0.70 0.66 - 1.25 mg/dl [facility] GFR, Calculated >60 >60 ml/min/1.7 3m2 [facility] Blood specimen (specimen) 02/16/2014 5:53 EDT 02/16/2014 5:59 EDT Farhan Alfaro MD CHEMISTRY & BLOOD GAS ORDERABL ES Final Result Performing Organization Address City/[facility]/ZIP Co de Phone Number [facility] [address] [place] [address] * BUN (02/16/2014 5:53 EDT) BUN 11 10 - 26 mg/dl [facility] Blood specimen (specimen) 02/16/2014 5:53 EDT 02/16/2014 5:59 EDT us Farhan Alfaro MD CHEMISTRY & BLOOD GAS ORDERABL ES Final Result Performing Organization Address [facility] Co de Phone Number [facility] [address] [place] [address] * ELECTROLYTES (02/16/2014 5:53 EDT) Sodium 141 [...] ORDERABL ES Final Result Performing Organization Address [facility] Co de Phone Number [facility] [address] [place] [address] * ALT (02/16/2014 5:53 EDT) ALT 22 21 - 72 U/L [facility] Blood specimen (specimen) 02/16/2014 5:53 EDT 02/16/2014 5:59 EDT us Kemi Vo NP CHEMISTRY & BLOOD GAS ORDERABLE S Final Result Performing Organization Address [facility] Co de Phone Number [facility] [address] [place] [address] * AST (02/16/2014 5:53 EDT) AST 15 15 - 46 U/L [facility] Blood specimen (specimen) 02/16/2014 5:53 EDT 02/16/2014 5:59 EDT Kemi Edwin CAR HOSTLER CHEMISTRY & BLOOD GAS ORDERABLE S Final Result Performing Organization Address [facility] de Phone Number [facility] [address] [place] [address] * LIPID PROFILE (INCLUDES CHOLESTEROL, TRIGLYCERIDES, HDL, LDL) (02/16/2014 5:53 EDT) Cholesterol 154 mg/dl [facility] Comment: Desirable:<200 Borderline High:200-239 High:>ty=648 Triglycerides 254 mg/dl [facility] Comment: Normal:<150 Borderline High:150-199 High:200-499 Very High:>jb=042 HDL 37 mg/dl [facility] Comment: Low:<40 Normal:40-60 Desirable: >60 LDL, Calculated 66 mg/dl ASHWINI [facility] Comment: Optimal:<100 Near Optimal:100-129 Borderline High:130-159 High:160-189 Very High:>il=225 Chol/HDL Ratio 4.2 [facility] Fasting? YES [facility] Non HDL Cholesterol 117 mg/dl [facility] Comment: Desirable:<130 Borderline:130-159 High: 160-189 Very High: >pu=676 Blood specimen (specimen) 02/16/2014 5:53 EDT 02/16/2014 5:59 EDT Kemi Vo CAR HOSTLER CHEMISTRY & BLOOD GAS ORDERABLE S Final Result Performing Organization Address [facility] de Phone Number [facility] [address] [place] [address] * CK MB WITH TOTAL CK (02/16/2014 5:53 EDT) CK 47 0 - 250 U/L [facility] MB 0.54 <4.21 ng/ml [facility] Blood specimen (specimen) 02/16/2014 5:53 EDT 02/16/2014 5:59 EDT us Kemi Vo NP CHEMISTRY & BLOOD GAS ORDERABLE S Final Result Performing Organization Address [facility] Phone Number [facility] [address] [place] [address] * (ABNORMAL) GLUCOSE, GLUCOMETER (02/16/2014 5:51 EDT) Glucose, Fingerstick 105(H) 70 - 100 mg/dl [facility] Call Person [place] [id number] [facility] Comment:Test Performed by [facility] 02/16/2014 5:51 EDT 02/16/2014 5:52 EDT us Mahi Mcginnis MD CHEMISTRY & BLOOD GAS ORDER CARTER Final Result Performing Organization Address [facility] Phone Number [facility] [address] [place] [address] * GLUCOSE, GLUCOMETER (02/15/2014 20:41 EDT) Glucose, Fingerstick 78 70 - 100 mg/dl [facility] Call Person ID [id number] [facility] Comment:Test Performed by [employer] 02/15/2014 20:4 1 EDT 02/15/2014 20:45 EDT Mahi Mcginnis MD CHEMISTRY & BLOOD GAS ORDER CARTER Final Result Performing Organization Address [facility] Phone Number [facility] [address] [place] [address] * (ABNORMAL) GLUCOSE, GLUCOMETER (02/15/2014 16:44 EDT) Glucose, Fingerstick 154(H) 70 - 100 mg/dl [facility] Call Person ID [id number] [facility] Comment:Test Performed by [employer] 02/15/2014 16:4 4 EDT 02/15/2014 16:49 EDT us Mahi Mcginnis MD CHEMISTRY & BLOOD GAS ORDER CARTER Final Result [facility] [address] [place] [address] * EKG 12-LEAD (02/15/2014 14:19 EDT) 02/15/2014 14:1 9 EDT Narrative [facility] EKG - 02/17/2014 8:24 EDT ?[facility] ? Test Date: ?2014-02-15 Pat Name: ? ROMEO PATELONEY ?Department: ?? Kirill [facility]es ? Room: ? ME507 Gender: ? M ?Hand Box Coverer: ?? [id number] : ?1965 ? Requested By: KEMI VO CAR HOSTLER Order Number: [id number] ? Reading MD: ?? VILMA BENSON MD ? Measurements Intervals ?[place] ? Rate: ? 57 ? P: ?-3 NV: ? 156 ?QRS: ?22 QRSD: ? 103 [...] Date: 2014-02-15 Pat Name: ROMEO COELHO Department: [place] [address] Room: [facility] Gender: M Hand Box Coverer: [id number] : 1965 Requested By: KEMI VO CAR HOSTLER Order Number: [id number] Reading MD: VILMA BENSON MD Measurements Intervals [place] Rate: 57 P: -3 NV: 156 QRS: 22 QRSD: 103 T: 44 QT: 401 QTc: 392 Interpretive Statements SINUS BRADYCARDIA Compared to ECG 02/15/2014 08:43:51 Sinus bradycardia now present I reviewed the tracing and agreed or edited the report. ElectronicallySigned On 02-17-14 08:24:39 EDT by VILMA BENSON MD. us Kemi Vo CAR HOSTLER CARDIAC ECG ORDERABLES Final Re sult Performing Organization Address [facility] Co de Phone Number [facility] EKG * CK MB WITH TOTAL CK (02/15/2014 14:02 EDT) CK 51 0 - 250 U/L [facility] MB <0.22 <4.21 ng/ml [facility] Blood specimen (specimen) 02/15/2014 14:02 EDT 02/15/2014 14:30 EDT us Farhan Alfaro MD CHEMISTRY & BLOOD GAS ORDERABL ES Final Result Performing Organization Address [facility] de Phone Number [facility] [address] [place] [address] * (ABNORMAL) GLUCOSE, GLUCOMETER (02/15/2014 12:38 EDT) Glucose, Fingerstick 106(H) 70 - 100 mg/dl [facility] Call Person ID [id number] [facility] Comment:Test Performed by [facility] 02/15/2014 12:3 8 EDT 02/15/2014 13:32 EDT us Mahi Mcginnis MD CHEMISTRY & BLOOD GAS ORDER CARTER Final Result Performing Organization Address [facility] de Phone Number [facility] [address] [place] [address] * LEFT HEART CATH (02/15/2014 10:55 EDT) Anatomical Region Laterality Modality Other 02/15/2014 10:5 5 EDT Narrative 02/15/2014 16:46 EDT Cardiology [address] [place] [address] Catheterization Laboratory Study Patient: Romeo Coelho ? Study Date: ?02/15/2014 ? Accession #: ? [id number] : ? 1965 Diagnostic Attending: ??Vilma Benson [...] ??Right radial artery access. A 6 FR/10 Structured PolymersumNovatek Sheath Pull[place] SS .021 sheath was ?advanced into the [...] MD 2014-02-15 16:46 Procedure Note 02/15/[address] [place] [address] Catheterization Laboratory Study Patient: Romeo Coelho Study [...] patient's anginal symptoms and an ACC/AHA type [id number] risk lesion for intervention, with 2 or [...] artery access. A 6 FR/10 Terumo Sheath [place] SS .021sheath was advanced into the vessel. [...] catheter was exchanged for a 6fr Runway [id number]. 9. Pressure derived flow reserve measurement for [...] with two inflations and a maximum pressure [id number]. STUDY COMPLETION: The estimated blood loss was [...] of 12mcg/min. Fentanyl, for a total dose [id number]. Midazolam, for a total dose of 2mg. Nitroglycerin, for a total dose [id number], into the coronary artery. Contrast: Isovue 370 [...] ORDERABLES Final Result [facility] [address] [place] [address] * EKG 12-LEAD (02/15/2014 8:43 EDT) 02/15/2014 8:43 EDT Narrative [facility] EKG - 02/15/2014 22:25 EDT ?[facility] ? Test Date: ?2014-02-15 Pat Name: ? ROMEO COELHO ?Department: ?? Kir[facility] 5 ? Room: ? ME507 Gender: ? M ?Hand Box Coverer: ?? [id number] : ?1965 ? Requested By: SOPHIE SALINAS MD Order Number: [id number] ? Reading MD: ?? KATHIE BARON MD ? Measurements Intervals ?[place] ? Rate: ? 61 ? P: ?-1 NV: ? 149 ?QRS: ?20 QRSD: ? 98 [...] Date: 2014-02-15 Pat Name: ROMEO COELHO Department: [place] [address] Room: [facility] Gender: M Hand Box Coverer: [id number] : 1965 Requested By: SOPHIE PEREIRA Order Number: [id number] Tiarra MD: KATHIE BARON MD Measurements Intervals [place] Rate: 61 P: -1 NV: 149 QRS: 20 QRSD: 98 T: 37 QT: 386 QTc: 392 Interpretive Statements SINUS RHYTHM NORMAL ECG Compared to ECG 02/15/2014 00:29:30 No significant changes I reviewed the tracing and agreed or edited the report. ElectronicallySigned On 02-15-14 22:25:53 EDT by KATHIE BARON MD. us Sophie Salinas MD CARDIAC ECG ORDERABLES [place] Result [facility] EKG * (ABNORMAL) GLUCOSE, GLUCOMETER (02/15/2014 6:40 EDT) [facility] Glucose, Fingerstick 146(H) 70 - 100 mg/dl [facility] Call Person ID [id number] [facility] Comment:Test Performed by [facility] 02/15/2014 6:40 EDT 02/15/2014 6:41 EDT us Mahi Mcginnis MD CHEMISTRY & BLOOD GAS ORDER CARTER Final Result Performing Organization Address City/[facility] Co de Phone Number [facility] [address] [place] [address] * (ABNORMAL) DIFFERENTIAL (02/15/2014 5:34 EDT) % [...] Fi nal Result Performing Organization Address City/[facility]/ZIP Co de Phone Number [facility] [address] [place] [address] * (ABNORMAL) HEMAGRAM (02/15/2014 5:34 EDT) WBC [...] ORDERABLES Fi nal Result Performing Organization Address [facility] de Phone Number [facility] [address] [place] [address] * CREATININE (02/15/2014 5:34 EDT) Creatinine 0.80 0.66 - 1.25 mg/dl [facility] GFR, Calculated >60 >60 ml/min/1.7 3m2 [facility] Blood specimen (specimen) 02/15/2014 5:34 EDT 02/15/2014 5:53 EDT Farhan Alfaro MD CHEMISTRY & BLOOD GAS ORDERABL ES Final Result Performing Organization Address [facility] de Phone Number [facility] [address] [place] [address] * BUN (02/15/2014 5:34 EDT) BUN 10 10 - 26 mg/dl [facility] Blood specimen (specimen) 02/15/2014 5:34 EDT 02/15/2014 5:53 EDT Farhan Alfaro MD CHEMISTRY & BLOOD GAS ORDERABL ES Final Result Performing Organization Address [facility] de Phone Number [facility] [address] [place] [address] * ELECTROLYTES (02/15/2014 5:34 EDT) Sodium 143 [...] ORDERABL ES Final Result Performing Organization Address [facility] de Phone Number [facility] [address] [place] [address] * LIPID PROFILE (INCLUDES CHOLESTEROL, TRIGLYCERIDES, HDL, LDL) (02/15/2014 5:34 EDT) Cholesterol 143 mg/dl [facility] Comment: Desirable:<200 Borderline High:200-239 High:>fu=813 Triglycerides 266 mg/dl [facility] Comment: Normal:<150 Borderline High:150-199 High:200-499 Very High:>jn=827 HDL 39 mg/dl [facility] Comment: Low:<40 Normal:40-60 Desirable: >60 LDL, Calculated 51 mg/dl [facility] Comment: Optimal:<100 Near Optimal:100-129 Borderline High:130-159 High:160-189 Very High:>cq=809 Chol/HDL Ratio 3.7 [facility] Fasting? Unknown [facility] Non HDL Cholesterol 104 mg/dl [facility] Comment: Desirable:<130 Borderline:130-159 High: 160-189 Very High: >ih=353 Blood specimen (specimen) 02/15/2014 5:34 EDT 02/15/2014 5:53 EDT Farhan Alfaro MD CHEMISTRY & BLOOD GAS ORDERABL ES Final Result Performing Organization Address [facility] de Phone Number [facility] [address] [place] [address] * TROPONIN I (02/15/2014 5:34 EDT) [facility] Troponin I (ng/mL) <0.034 <0.034 ng/ml [facility] Blood specimen (specimen) 02/15/2014 5:34 EDT 02/15/2014 5:53 EDT Farhan Alfaro MD CHEMISTRY & BLOOD GAS ORDERABL ES Final Result Performing Organization Address [facility] de Phone Number [facility] [address] [place] [address] * CK MB WITH TOTAL CK (02/15/2014 5:34 EDT) [facility] CK 55 0 - 250 U/L [facility] MB 0.25 <4.21 ng/ml [facility] Blood specimen (specimen) 02/15/2014 5:34 EDT 02/15/2014 5:53 EDT Farhan Alfaro MD CHEMISTRY & BLOOD GAS ORDERABL ES Final Result Performing Organization Address [facility] [place] [address] * (ABNORMAL) PTT (02/15/2014 1:57 EDT) [facility] PTT 48(H) 26 - 37 secs [facility] Comment:Therapeutic Heparin range: 65-100 seconds Blood specimen (specimen) 02/15/2014 1:57 EDT 02/15/2014 2:20 EDT Mahi Mcginnis MD HEMATOLOGY & PF4 ORDERABLES Final Result Performing Organization Address [facility] de Phone Number [facility] [address] [place] [address] * EKG 12-LEAD (02/15/2014 0:29 EDT) 02/15/2014 0:29 EDT Narrative [facility] EKG - 02/17/2014 11:31 EDT ?[facility] ? Test Date: ?2014-02-15 Pat Name: ? ROMEO COELHO ?Department: ?? Roy 5 ? Room: ? [place]507 Gender: ? M ?Hand Box Coverer: ?? [id number] : ?1965 ? Requested By: MAHI ELENA MD Order Number: [id number] ? Reading MD: ?? ODESSA SANTOS MD ? Measurements Intervals ?[place] ? Rate: ? 61 ? P: ?1 NV: ? 140 ?QRS: ?44 QRSD: ? 101 [...] Date: 2014-02-15 Pat Name: ROMEO COELHO Department: [place] [address] Room: [facility] Gender: M Hand Box Coverer: [id number] : 1965 Requested By: MAHI ELENA MD Order Number: [id number] Reading MD: ODESSA SANTOS MD Measurements Intervals [place] Rate: 61 P: 1 NV: 140 QRS: 44 QRSD: 101 T: 46 [...] EKG * (ABNORMAL) DIFFERENTIAL (02/14/2014 22:43 EDT) [facility] % Neutrophils 36.5(L) 45.5 - 79.7 [...] Fi nal Result [facility] [address] [place] [address] * (ABNORMAL) HEMAGRAM (02/14/2014 22:43 EDT) WBC [...] ORDERABLES Fi nal Result Performing Organization Address [facility] de Phone Number [facility] [address] [place] [address] * TROPONIN I (02/14/2014 22:43 EDT) Troponin I (ng/mL) <0.034 <0.034 ng/ml [facility] Blood specimen (specimen) 02/14/2014 22:43 EDT 02/14/2014 22:50 EDT Farhan Alfaro MD CHEMISTRY & BLOOD GAS ORDERABL ES Final Result Performing Organization Address [facility] de Phone Number [facility] [address] [place] [address] * CK MB WITH TOTAL CK (02/14/2014 22:43 EDT) CK 51 0 - 250 U/L [facility] MB <0.22 <4.21 ng/ml [facility] Blood specimen (specimen) 02/14/2014 22:43 EDT 02/14/2014 22:50 EDT us Farhan Alfaro MD CHEMISTRY & BLOOD GAS ORDERABL ES Final Result Performing Organization Address [facility] de Phone Number [facility] [address] [place] [address] * HEMOGLOBIN A1C (02/14/2014 22:43 EDT) Hemoglobin [...] ORDERABL ES Final Result Performing Organization Address [facility] de Phone Number [facility] [address] [place] [address] * SCREENING GLUCOSE (02/14/2014 22:43 EDT) Glucose, Screening 94 70 - 100 mg/dl [facility] Blood specimen (specimen) 02/14/2014 22:43 EDT 02/14/2014 22:50 EDT us Farhan Alfaro MD CHEMISTRY & BLOOD GAS ORDERABL ES Final Result Performing Organization Address [facility] de Phone Number [facility] [address] [place] [address] * EKG 12-LEAD (02/14/2014 22:28 EDT) 02/14/2014 22:2 8 EDT Narrative FA EKG - 02/15/2014 12:55 EDT ?[facility] ? Test Date: ?2014-02-14 Pat Name: ? ROMEO COELHO ?Department: ?? [facility] 5 ? Room: ? ME507 Gender: ? M ?Hand Box Coverer: ?? [id number] : ?1965 ? Requested By: FARHAN ALFARO MD Order Number: [id number] ? Reading MD: ?? ROMEO ART MD ? Measurements Intervals ?[place] ? Rate: ? 60 ? P: ?-7 NV: ? 149 ?QRS: ?31 QRSD: ? 100 [...] Date: 2014-02-14 Pat Name: ROMEO COELHO Department: [place] [address] Room: [facility] Gender: M Hand Box Coverer: [id number] : 1965 Requested By: FARHAN ALFARO MD Order Number: [id number] Reading MD: ROMEO ART MD Measurements Intervals [place] Rate: 60 P: -7 NV: 149 QRS: 31 QRSD: 100 T: 35 [...] ORDERABLES Final R esult Performing Organization Address City/[facility] Co de Phone Number [facility] EKG * GLUCOSE, GLUCOMETER (02/14/2014 22:26 EDT) [facility] Signature Glucose, Fingerstick 87 70 - 100 mg/dl [facility] Call Person ID [id number] [facility] Comment:Test Performed by [facility] 02/14/2014 22:2 6 EDT 02/14/2014 22:44 EDT us Mahi Mcginnis MD CHEMISTRY & BLOOD GAS ORDER CARTER Final Result Performing Organization Address City/[facility] Co de Phone Number [facility] [address] [place] [address] documented in this encounter Visit Diagnoses Diagnosis Chest pain- Primary Chest pain, unspecified Chest pain Chest pain, unspecified CAD (coronary artery disease) Coronary atherosclerosis of unspecified type of vessel, [place] or graft Unstable angina (HCC-CMS) Intermediate coronary syndrome S/P coronary artery stent placement Postsurgical percutaneous transluminal coronary angioplasty status NSTEMI (non-ST elevated myocardial infarction) (HCC-CMS) Acute myocardial infarction, subendocardial infarction, episode of care unspecified Unstable angina (HCC-CMS) Intermediate coronary syndrome CAD (coronary artery disease) Coronary atherosclerosis of unspecified type of vessel, [place] or graft documented in this encounter Administered [...] wants to wait until after [facility])1315 (Given - Provider: Gina Mix [...] Reason: NPO)1314 (Not Given - Provider: Gina iMx RN - Reason: Order parameters not met)1744 [...] RN - Reason: Other - Comment: s/p [facility]) PRN Medication Order 02/14/2014 02/15/2014 02/16/2014 [...] 02/14/2014 documented in this encounter Care Teams Human Resources Executive Assistant Relationship Specialty Start Date End Date Sarita Lim MD [address] [place] [id number] PCP - General 12/17/11 documented as of this encounter
--- OUTSIDE RECORDS SUMMARY | 2024-08-19 14:58 | XMS_ITS | Encounter Summary ---
Author Organization [facility] Address [address] [place] [address] Care Team Providers Care Functional Analyst Name Role Phone Unavailable Primary Care Provider Unavailabl e Encounter Details Date Type Department Care Team (Late st Contact Info) Description 12/15/2011 Results Only [facility] [phone] Randell Kate, [address] [place], [place] [id number] Social History Tobacco Use Types Packs/Day Years [...] ? ROMEO COE ? Accession #: ? [id number] : ? 1965 (Age: 46) ??M ?Collect [...] DO PATHOLOGY ORDERABLES Fi nal Result [facility] [address] [place] [address] documented in this encounter Visit Diagnoses Not on filedocumented in this encounter
--- OUTSIDE RECORDS SUMMARY | 2024-08-19 14:58 | XMS_ITS | Encounter Summary ---
Author Organization [facility] Address [address] [place] [address] Care Team Providers Care Planer Operator Name Role Phone Unavailable Primary Care Provider Unavailabl e Encounter Details Date Type Department Care Team (Late st Contact Info) Description 11/13/2008 Before PRISM Converted Visit (Maple) [facility] conversion [address] [place] [address] Irving Jha MD [address] [place] [address] Social History Tobacco Use Types Packs/Day Years [...] ? ROMEO COE ? Accession #: ? [id number] ? : ? 1965 (Age: 43) ??M [...] the rectal biopsy (specimen B). ??( ?? [facility] ? Document reviewed and electronically signed [...] submitted intact as (A). ? Received [facility]'s fixative labelled Romeo Coe and #2 [...] ORDERABLES Final Result [facility] [address] [place] [address] documented in this encounter Visit Diagnoses Not on filedocumented in this encounter
[2024-08-19 15:54] LABS: C-Reactive Protein < 0.50 mg/dL (<or=0.5)
[2024-08-19 15:55] LABS: ESR 14 mm/hr (0-20)
[2024-08-22 11:11] LABS: Anaplasma phagocytophilum Negative (Negative); B. miyamotoi PCR Negative (Negative); Babesia divergens/MO-1 Negative (Negative); Babesia duncani Negative (Negative); Babesia microti Negative (Negative); Ehrlichia chaffeensis Negative (Negative); Ehrlichia ewingii/canis Negative (Negative); Ehrlichia muris eauclairensis Negative (Negative)
== END 2024-08-19 14:49 | disposition home or self-care (01) ==
LOC: NCHCN 14:48
PROVIDERS: PCP Family Medicine; Visit Provider Family Medicine
DX: R53.81 Other malaise (principal)
CPT/HCPCS: 85652; 87798; 86140

== ENCOUNTER 2024-08-22 18:07 | Emergency (ER) | payer MEDICARE, MEDICAID, SELFPAY ==
[2024-08-22] VITALS (56 sets, daily range): BP systolic 77–112; BP diastolic 53–76; PULSE 63–80; RESP 9–19; TEMP 36.2; O2SAT 91–98
--- NOTE | 2024-08-22 17:45 | RT.EKG_ITS ---
APPROVED REPORT Exam: Resting ECG Reason for Exam: chest pain Patient Location: E HR:73 bpm ECG Measurements Heart Rate 73 AXIS DC 149 P 49 QRSd 83 QRS 36 QT 357 T 34 QTc 393 Conclusion Sinus rhythm 73 normal axis no stemi
[2024-08-22] MEDS: nitroGLYcerin 0.4 MG TAB SL ×2 (18:37→19:33)
--- OUTSIDE RECORDS SUMMARY | 2024-08-22 18:44 | XMS_ITS | Encounter Summary ---
Author Organization [facility] Address [facility] [place] [address] Care Team Providers Care Tube Making Machine Operator Name Role Phone Coni Lim MD Primary Care Provider Encounter Details Date Type Department Care Team (Late st Contact Info) Description 04/07/2023 [place] [address] Patel Griggs MD [facility] [place] [address] Social History Tobacco Use Types Packs/Day Years [...] EDT Neurology Attending I spoke with caregivers [facility]. There is no capacity here to [...] recommended trying to transfer the patient to [facility] Patel Griggs MD [place] [address] Pager #[phone] Email: [email or web address] documented in this encounter Plan of Treatment Not on file documented as of this encounter Visit Diagnoses Not on filedocumented in this encounter Care Teams Tube Making Machine Operator Relationship Specialty Start Date End Date Coni Lim MD [address] [place] [address] PCP - General 07/16/10 documented as of this encounter
--- OUTSIDE RECORDS SUMMARY | 2024-08-22 18:44 | XMS_ITS | Encounter Summary ---
Author Organization [facility] Address [facility] [place] [address] Care Team Providers Care Soldering Machine Operator Automatic Name Role Phone Coni Lim MD Primary Care Provider [phone] Encounter Details Date Type Department Care Team (Late st Contact Info) Description 01/13/2022 Ancillary Procedure Radiology Library at [facility] [place] [address] Cecilia Maza MD [facility] [place] [place] [address] Social History Tobacco Use Types Packs/Day Years [...] Ultrasound Study (01/13/2022 12:00 AM EDT) Narrative [facility] - 02/25/2022 4:21 PM EDT This exam is auto-finalizing. It's purpose is for storage only. Cecilia Maza MD IMG FILM LIBRARY ORDERABLES DH [place], [place] documented in this encounter Visit Diagnoses Not on filedocumented in this encounter Care Teams Soldering Machine Operator Automatic Relationship Specialty Start Date End Date Coni Lim MD [address] [place] [address] PCP - General 07/16/10 documented as of this encounter
--- OUTSIDE RECORDS SUMMARY | 2024-08-22 18:44 | XMS_ITS | Encounter Summary ---
Author Organization [facility] Address [facility] [place] [address] Care Team Providers Care Manufacturer'S Service Representative Name Role Phone Coni Lim MD Primary Care Provider [phone] Encounter Details Date Type Department Care Team (Late st Contact Info) Description 04/07/2023 7:30 PM EDT Ancillary Procedure Radiology Library at [facility] [place] [place] [address] Patel Griggs MD [facility] [place] [address] Social History Tobacco Use Types Packs/Day Years [...] And Spine (04/07/2023 7:22 PM EDT) Narrative [facility] - 04/07/2023 7:22 PM EDT This exam is auto-finalizing. It's purpose is for storage only. Patel Griggs MD [facility] FILM LIBRARY ORD ERABLES DH [place], [place] documented in this encounter Visit Diagnoses Not on filedocumented in this encounter Care Teams Manufacturer'S Service Representative Relationship Specialty Start Date End Date Coni Lim MD [address] [place] [address] PCP - General 07/16/10 documented as of this encounter
--- OUTSIDE RECORDS SUMMARY | 2024-08-22 18:44 | XMS_ITS | Clinical Summary ---
Author Organization [facility] Address [facility] [address] Care Team Providers Care Health Support Specialist Name Role Phone Coni Lim MD Primary Care Provider [phone] Allergies Active Allergy Reactions Criticality Noted Date [...] be different from the original. Notified by [facility] in [place], [place] pt will need PA for Brilinta. Had DR. Nagy complete PA form. CRC faxed to [facility] with Fax confirmation received.. CRC Faxed copy of Brilinta coupon to [facility]. 30 day supply will be able to be filled on Thursday 06/07. CRC contacted [facility] in [place], [place]. They confirmed they can dispense 10 90 mg tabs to pt until Thursday. Pt's Dasia notified by CRC of plan to cigar packer and picker Brilintal Rx at [facility] and then Full Rx from [facility] on Thursday. Pt's verbalized understanding. CRC notified Dr. Nagy of plan. Chester GRAHAM, RN Clinical Director Oncology Pager [phone] Problem Noted Date Diagnosed Date Conjunctival lesion [...] with 3.5 X 18 mm [facility] 2009 post abnormal nuc stress +IW, EF normal - Recurrent angina, CCS class III - Cardiac catheterization 06/03/2012: 2 vessel CAD (LAD and LCX), +FFR of both lesions s/p PCI to pOM1 (3.0 x 18 mm Xience JACINDA) and mLAD (3.0 x 20 mm Promus Element JACINDA) Immunizations Name Administration Dates Next Due Influenza (Novel O4R3-65) Injectable 05/24/2009 Influenza PF, Split 07/30/2013 Influenza [...] CHEMISTRY ORDERABLE S [facility] [place] [address] * (ABNORMAL) Hemoglobin A1c (03/15/2019 5:01 AM EDT) Hemoglobin A1c 6.8(H) 4.3 - 5.6 % [facility] Comment: Reference Range: 4.3 [...] Mellitus, Diabetes Care 2013; 36: Suppl. 1, R34-92 Estimated Average Glucose 148 mg/dL [facility] Comment: eAG equivalents for [...] into estimated average glucose values. ??Diabetes Care 2008:31(8):7469-2210. Blood specimen (specimen) 03/15/2019 5:01 AM EDT 03/15/2019 5:12 AM EDT Narrative Resulting Agency Comment Spec In Lab Siri Bush SUBSTANCE ABUSE COUNSELOR CHEMISTRY ORDERABL ES [facility] [place] [address] from Last 3 Months or Most Recently [...] is based on Patients wishes. Care Teams Health Support Specialist Relationship Specialty Start Date End Date Coni Lim MD [address] [place] [address] PCP - General 07/16/10
--- OUTSIDE RECORDS SUMMARY | 2024-08-22 18:44 | XMS_ITS | Encounter Summary ---
Author Organization [facility] [place] [address] Care Team Providers Care Core Maker Name Role Phone Coni Lim MD Primary Care Provider [phone] Encounter Details Date Type Department Care Team (Late st Contact Info) Description 11/25/2021 Telephone Cardiology at [address] [phone] Yessy Pugh Social History Tobacco Use Types [...] they received the ABSORB stent. Certified mail #[id number] documented in this encounter Plan of Treatment Not on file documented as of this encounter Visit Diagnoses Not on filedocumented in this encounter Care Teams Core Maker Relationship Specialty Start Date End Date Coni Lim MD [address] [place] [address] PCP - General 07/16/10 documented as of this encounter
--- OUTSIDE RECORDS SUMMARY | 2024-08-22 18:44 | XMS_ITS | Encounter Summary ---
Author Organization [facility] Address [facility] [place] [address] Care Team Providers Care Estate Conservator Name Role Phone Coni Lim MD Primary Care Provider [phone] Encounter Details Date Type Department Care Team (Late st Contact Info) Description 11/22/2021 Ancillary Procedure Radiology Library at [facility] [place] [address] Cecilia Maza MD [facility] [place] [address] Social History Tobacco Use Types Packs/Day Years [...] Ultrasound Study (11/22/2021 12:00 AM EDT) Narrative [facility] - 02/25/2022 4:20 PM EDT This exam is auto-finalizing. It's purpose is for storage only. Cecilia Maza MD IMG FILM LIBRARY ORDERABLES DH [place], [place] documented in this encounter Visit Diagnoses Not on filedocumented in this encounter Care Teams Estate Conservator Relationship Specialty Start Date End Date Coni Lim MD [address] [place] [address] PCP - General 07/16/10 documented as of this encounter
--- OUTSIDE RECORDS SUMMARY | 2024-08-22 18:44 | XMS_ITS | Encounter Summary ---
Author Organization Formerly [facility], [facility] Address [facility] [place] [address] Care Team Providers Care Puff Ironer Name Role Phone Coni Lim MD Primary Care Provider [phone] Reason for Visit * Auth/Cert Specialty Diagnoses / Procedures Referred By Ruby garvin Referred To Contact Diagnoses Unstable angina Chest pain Procedures EMERGENCY IPI Referral ID Status Reason Start Date Expiration Date Visits Re quested Visits Authorized [id number] 1 1 Encounter Details Date Type Department Care Team (Late st Contact Info) Description 06/10/2021 9:00 AM EDT - 06/10/2021 10:00 AM EDT [place] [id number] Jose Trimble MD [facility] [place] [address] CARDIAC CATHETERIZATION Social History Tobacco Use Types [...] Romeo Coelho Patient Age: 56 y.o. Language: Omani Race: White Ethnicity: Not nor Admit date: 2021 Discharge date and time: 06/10/2021 5:40 PM Attending Physician: Supa Alegria MD Discharge Physician: Supa Alegria MD Follow-up Recommendations for Providers: Romeo Coelho is a 56 year old male admitted for chest pain concerning for unstable angina. 1. ASCVD / Microvascular angina: [facility] 06/10/21 without obstructive CAD and with [...] Escobar APRN Sarah Hansen, PA-C Cardiovascular Medicine [phone] Discharge Diagnoses (Hospital Problems) and Secondary Diagnoses (Chronic Problems): Active Hospital Problems Diagnosis ??? Unstable angina ??? Chest pain ??? Smoker ??? CAD (coronary artery disease) ??? Dyslipidemia ??? HTN (hypertension) ??? DM (diabetes mellitus) Resolved Hospital Problems No resolved problems to display. Active Non-Hospital Problems Diagnosis ??? Hx-TIA (transient ischemic attack) ??? GERD (gastroesophageal reflux disease) ??? Conjunctival lesion Operations/Major Procedures: [facility] 06/10/21 Hemodynamics: Left Heart Pressures Resting: [...] 2011, LAD stent in 2012, RCA stent [id number]. His most recent coronary angiogram (2019) showed [...] since 2011 and last JACINDA to RCA [id number]. Last [facility] 2018 with residual ~40% LAD and [...] SOB prior to discharge. Follow up with fellmongering machine operator, Dr. Gutierrez, was arranged. ?? Right??groin cellulitis, abscess with spontaneous drainage Patient noted to have right groin erythema consistent with cellulitis. He remained afebrile and without leukocytosis. Blood cultures obtained at OSH were NGTD at 2 days (spoke with microbiology at [facility] on 06/10/21). These were repeated at [...] CTA chest was made. ?? Diabetes mellitus, adi-zymzdll-bvtcnkggv, uncontrolled A1c of 9.4%. Home metformin held [...] Studies and Lab Data: Blood cultures at [facility] and [facility]. Discharge Conditions/Prognosis: Alert and oriented x 3, ambulatory-independent. Ambulated without chest pain or SOB prior to discharge. Discharge to: Home. Updated Allergies/ADRs: Allergies Allergen Reactions ??? Thallium-201 Severe cardiac event ??? Lisinopril Other (See Comments) cough ??? Paper Tape [Adhesive Tape] Rash Immunizations Given this Hospitalization: Immunization History Administered Date(s) Administered ??? Influenza PF, Split 07/30/2013 ??? Influenza Vaccine (Novel) [id number], Injectable 05/24/2009 ??? Influenza Vaccine w/Preservative, Split [...] of 8AM-5PM please call the Cardiology Clinic [phone] to speak with a nurse. All other hours please call the Hospital Court Recorder [phone] and ask to speak to the unclaimed property officer on-call. Return to work: One week Driving: [...] Time PCP COLEEN Wen [address] [place] [address] Jun 20 10:00am Roll Threader Operator Dr. Gutierrez [facility] Cardiology [phone] ThursdayJul 23 11:40am Discharge References/Attachments Angina (Omani) Discussed with MD Coni Escobar PA-C Pager #[phone] 06/10/2021 documented in this encounter Discharge Instructions [...] of 8AM-5PM please call the Cardiology Clinic [phone] to speak with a nurse. All other hours please call the Hospital Court Recorder [phone] and ask to speak to the unclaimed property officer on-call. Return to work: One week Driving: [...] Time PCP COLEEN Wen [address] [place] [address] Jun 20 10:00am Roll Threader Operator Dr. Gutierrez [facility] Cardiology [phone] ThursdayJul 23 11:40am * Patient Instructions* Coni Lew PA - 06/10/2021 3:07 PM EDT * Attachments The following attachments cannot be sent through Care Everywhere. * Angina (Omani) documented in this encounter Medications at Time [...] MOUTH EVERY 4 TO 6 HOURS 05/18/2020 Milyoniuch Verio test strips Strip USE ONE STRIP [...] Transport initiated/not confirmed: Spoke with NOELLE from [facility] who initiated a ride with their scheduling department/dispatch to pick patient up at discharge 06/10/21 from the MAIN entrance at ~18:00 en route to HOME UPDATE 16:06 Discharge Transportation confirmed: Spoke with ELMIRA from [facility] who confirmed a drive away driver provided by transportation analystULISES will arrive to pick patient up at discharge 06/10/21 from the MAIN entrance at 18:00 en route to HOME. Bedside nurse notified via eDH chat. [facility] PHONE: [phone] * Supa Alegria MD - 06/10/2021 8:04 AM EDT Images from the original note were not included. Inpatient Cardiology Progress Note Patient Name: Romeo Coelho Service: RD LAB TECHNICIAN / PA Responsible Attending: Supa Alegria MD [...] since 2011 and last JACINDA to RCA [id number]. Last [facility] 2019 with residual ~40% LAD [...] chest at this time ?? Diabetes mellitus, hpe-aipdlqt-xtllwtomv, uncontrolled A1c of 9.4% Hold home metformin [...] Discussed with MD Coni Escobar PA-C Pager #[phone] 06/10/2021 Cardiology Attending Note I have seen and examined the patient. I agree with the findings above. Of note, he is feeling well today. His groin site shows no evidence of fluid collection. Blood cultures show no growth. We will proceed with coronary angiography and possible PCI Supa Alegria MD [facility] Total time spent on review [...] Progress Note Patient Name: Romeo Coelho Service: RD LAB TECHNICIAN / PA Responsible Attending: Supa Alegria MD Reason for continued hospitalization: Evaluation and management of unstable angina- cath Right groin cellulitis-IV abx Medication adjustment Active Problems: Active Hospital Problems Diagnosis ??? Unstable angina ??? Chest pain ??? Smoker ??? CAD (coronary artery disease) -Coronary Angio 07/29/2013: 65% (FFR 0.74) mid LAD lesion s/p PCI with 3.5 X 18 mm JACINDA - [facility] 2009 post abnormal nuc stress +IW, [...] CTA at this time ?? Diabetes mellitus, afo-pvxtsuh-xjlemhhxm Poor control with A1c of 9.4 Carb [...] ?Routine Diet: Daily Healthy Menu Choices/Cardiac diet ([facility]-Diet) CHO counting level 2 DVT Prophylaxis: already [...] proceed tomorrow on antibiotics. Supa Alegria MD [facility] Total time spent on review [...] PCP: Coni Lim MD PCP phone number: [phone] Date of Admission: 2021 ( Hospital Day 0 days ) Attending:Zuleyka Hodgson MD Patient Active Problem List Diagnosis ??? ','Unstable angina ??? Chest pain ??? Smoker ??? CAD (coronary artery disease) Overview Note: -Coronary Angio 07/29/2013: 65% (FFR 0.74) mid LAD lesion s/p PCI with 3.5 X 18 mm JACINDA - [facility] 2009 post abnormal nuc stress +IW, [...] of Onset ??? Myocardial Infarction Father 46 SD, CABG ??? Heart Disease Father ??? Diabetes [...] Lives with and daughter at home in [place], [place]. He is disabled now. He used [...] in the last 7068 hours. Invalid input(s): LOCFDGBXEHE4P No results for input(s): POCGLU in the last 168 hours. Heme No results for input(s): LDH, HAPTOGLOBIN, URICACID in the last 168 hours. ABG (Arterial Blood Gas) No results found for: PHART, PO2ART, OPU1JAM, HJY9TCP Microbiology: Microbiology Results (Last 30 days) No [...] (porcine) AND heparin (porcine) infusion Recent diagnostics: [facility] (2019): Left Main The left main [...] Obtain Echo - Serial cardiac enzymes - surveillance monitor - Cardiac cath in a.m. - [...] infection. No hypoxia or tachycardia #Diabetes mellitus, hcy-umgodna-byktjagop, poor control with A1c of 9.4 -Diabetic [...] #Routine Diet: Daily Healthy Menu Choices/Cardiac diet ([facility]-Diet) 75/75/90 CHO counting level 3 DVT Prophylaxis: already on heparin drip Code Status: Attempt Cardiopulmonary Resuscitation - Inpatient Dispo: Pending clinical course Isaiah Hoyos MD Pager #[phone] 06/08/21 8:56 PM documented in this encounter [...] cath without complications. Coni Lew PA-C Pager #[phone] 06/10/2021 * Initial Assessments - Ruthie Macias RN - 06/10/2021 3:39 PM EDT Office of Care Management Initial Assessment Ruthie Macias RN reviewed record and discussed patient with Care Team. Source of Information: Team, bedside nurse, medical record, and Patient Introduced self/reviewed role; services accepted. Reason for Hospitalization: unstable angina Last COVID test: Lab Results Component Value Date WGDCAGIRCN2T Not Detected 06/09/2021 Past medical History: Past [...] Dasia would be surrogate decision maker per [place] surrogatedecision making law. (Only good for 180 days) Any patient receiving care at [facility] must abide by [place] law. The hierarchy for surrogate decision making [...] (i) The agent with financial power of real estate attorney or a conservator appointed in accordance [...] cane - straight Home Address confirmed as: [address] [place] [id number] Social & Family Supports: All names listed below confirmed with patient as current and correct Extended Emergency Contact Information Primary Emergency Contact: Dasia Coelho Address: [address] [place] [id number] [place] [address] of [facility] Mobile Relation: Spouse Current Care Provided [...] MEDICAID [place] Prescription Coverage: Yes Preferred Pharmacy: [id number] - [facility], [place] - [address] [facility] [address] [place] [address] [place] Status: Patient is a : No Primary Care Provider: Coni Lim MD [phone] Patient/Caregiver Goals of Treatment: dc to home [...] required a BLS to transport here to [facility]. He will require assistance in finding A ride to home when he is dced. Pt has supports in place to accessthe necessary care and or follow up after dishcharge and there are no RN CM or ARMORER TECHNICIAN needs that are identified at this time Plan: dc to home A member of the Care Management team will continue to monitor progress, follow for continuity of care and assist with transition of care planning. Ruthie Macias RN CM Ext [phone] Pager [phone] * Consult Note - Elena Zaragoza APRN [...] and to provide a review of termite exterminator diabetes care. Diabetes History: Romeo Coelho has had diabetes for about 8 years. He was diagnosed during routine blood testing by his PCP. Denies having any symptoms at time of diagnosis. He takes metformin only, hasn't discussed additional medications with PCP previously as historically A1c has been 6-7. Lives in [facility] with Dasia. States the last [...] of Onset ??? Myocardial Infarction Father 46 SD, CABG ??? Heart Disease Father ??? Diabetes [...] your patient Elena Nik FLA[facility] Endocrinology Pager [phone] minutes of this 80 minute visit was spent with the patient in counseling on diabetes and treatment plan, reviewing all glucose and insulin data as well as relevant laboratory results with the patient, and coordination of care on the inpatient unit * Brief Op Note - Jose Trimble MD - 06/10/2021 11:37 AM EDT Brief Operative Note Patient Name: Romeo Coelho : [id number] MR#: [id number] Case Date: 06/10/2021 Roll Threader Operator: * Jose Trimble MD - Primary * Syed Solorio MD - Fellow Preoperative diagnosis: nstemi Postoperative diagnosis:NSTEMI with stable coronary anatomy Preliminary Cardiac Catheterization Procedure Note: Procedure(s) performed: Coronary Angiography, Left Heart Cath Baseline Frailty Assessment: Definitions from [place] Study of Health and Aging Clinical Frailty [...] Full report to follow. JOSE TRIMBLE MD supervisor mapping Pager [phone] * Plan of Care - Fabienne Morelos RN - 06/09/2021 2:57 PM EDT OUTCOME EVALUATION NOTE: OUTCOME SUMMARY: A/O x4. VSS on RA. NSR on tele. Heparin gtt maintained per protocol.IV zosyn and vanc given per protocol. (see MAR). BG elevated, MD notified, insulin scale adjusted. PLAN MOVING FORWARD: BC results label sewer D/c planning INDIVIDUALIZED FALL PREVENTION INTERVENTIONS: Patient-specific [...] SOB reported, remains on room air overnight. [place] very nauseous after he went to the [...] further details. Isaiah Hoyos MD 2021 Pager [phone] documented in this encounter Plan of Treatment [...] 06/09/2021 5:50 AM EDT RAPID COVID-19 PCR ([facility]) Routine 06/09/2021 5:45 AM EDT [...] * POCT Glucose (06/10/2021 4:20 PM EDT) [facility] Signature Glucose, POC 177 65 - 199 mg/dL [facility] Comment: Supplemental ranges: <140 mg/dL before meals <180 mg/dL all other times of the day Blood 06/10/2021 4:20 PM EDT 06/10/2021 4:20 PM EDT Supa Alegria MD POINT OF CARE TEST O RDERABLES [facility] [place] [address] * Troponin (06/10/2021 1:07 PM EDT) Troponin-T [...] meets the diagnosis for a myocardial infarction (SD). Detection of a rise and/or fall of cTnT, with at least one value greater than the 99th percentile (> or = 0.01) and with at least one of the following ?? Symptoms of ischemia ?? New or presumed new significant OO-bkuprfp-G wave (ST-T) changes or new left bundle [...] additional sample may be indicated. Reference: [place] Definition of Myocardial Infarction. Journal of the [place] College of [employer]iology 2012;60:1581-98 Blood 06/10/2021 1:07 PM EDT 06/10/2021 1:18 PM EDT Narrative Resulting Agency Comment Spec In Lab Isaiah Hoyos MD CHEMISTRY ORDERABLE S [facility] [place] [address] * POCT Glucose (06/10/2021 11:58 AM EDT) Glucose, POC 175 65 - 199 mg/dL [facility] Comment: Supplemental ranges: <140 mg/dL before meals <180 mg/dL all other times of the day Blood 06/10/2021 11:5 8 AM EDT 06/10/2021 11:58 AM EDT Supa Alegria MD POINT OF CARE TEST O RDERABLES [facility] [place] [address] * CARDIAC CATHETERIZATION (06/10/2021 11:45 AM EDT) Anatomical Region Laterality Modality Other Narrative 06/10/2021 12:54 PM EDT ?[facility] ? Cardiac Catheterization/Intervention Report ? Patient Name: Coelho, Romeo A. ? Procedure Date: 06/10/2021 ? A #: [id number] ? Primary Physician: Jose Trimble V ? Case #: [id number] ? File Name: [id number] ? Catheterization Order Number: [id number] ? [facility] ? Final Report [place], [place] ? Patient Name: ? Romeo Coelho ? ID#: ?[id number] ? : ?1965 ? Procedure Date: ? [...] was ?designated as ASA Class II. The [facility] clinical frailty scale is 2: [...] procedure was Urgent. The indication for ?the aquatic laborer visit is worsening angina. Chest pain [...] Procedure Note Jose Trimble MD - 06/10/2021 [facility] Cardiac Catheterization/Intervention Report Patient Name: Romeo CoelhoNatalie Procedure Date: 06/10/2021 A #: [id number] Primary Physician: Jose Trimble V Case #: [id number] File Name: [id number] Catheterization Order Number: [id number] [facility] FinalReport [place], [place] Patient Name: Romeo Coelho ID#:[id number] :1965 Procedure Date: June 10, 2021 Case [...] was designated as ASA Class II. The [facility] clinical frailty scale is 2:Well. [...] diagnostic procedure was Urgent. The indicationfor the aquatic laborer visit is worsening angina. Chest pain [...] units of heparin were administered. A total hv313mu of Omnipaque were opened, 38cc of Omnipaque were administered yvt07oc of Omnipaque were wasted. Radiation: Fluoro time [...] * POCT Glucose (06/10/2021 7:59 AM EDT) [facility] Glucose, POC 191 65 - 199 mg/dL [facility] Comment: Supplemental ranges: <140 mg/dL before meals <180 mg/dL all other times of the day Blood 06/10/2021 7:59 AM EDT 06/10/2021 7:59 AM EDT Supa Alegria MD POINT OF CARE TEST O RDERABLES [facility] [place] [address] * (ABNORMAL) BMP w/fasting Glucose (06/10/2021 3:44 AM EDT) Glucose Fasting 195(H) 65 - 99 mg/dL [facility] [...] of Diabetes Mellitus, Position Statement from the [place] Diabetes Association. ??Diabetes Care, Volume 33, Supplement 1, Aug 2009 Blood Urea Nitrogen 9(L) 10 - 20 mg/dL [facility] Creatinine 0.79(L) 0.80 - 1.50 mg/dL [facility] Sodium 134(L) 135 - 145 mmol/L [facility] Potassium 4.1 3.5 - 5.0 mmol/L [facility] Comment: Please note: ??Patients with WBC >100,000 may have falsely elevated Potassium levels. ??For accurate Potassium quantification in these patients send serum separator tube (gold top) for subsequent determinations. ??Contact the Clinical Chemistry Laboratory if there are any questions. Chloride 103 98 - 107 mmol/L [facility] Carbon Dioxide 18(L) 22 - 31 mmol/L [facility] Anion Gap 13 5 - 15 mmol/L [facility] Calcium 9.4 8.5 - 10.5 mg/dL [facility] Est Glomerular Filtration Rate 102 >=60 mL/min/1. 73 m?? [facility] Comment: This patient? s [...] In Lab Coni GROVER CHEMISTRY ORDERABLE S [facility] [place] [address] * Troponin (06/10/2021 3:44 AM EDT) Troponin-T [...] meets the diagnosis for a myocardial infarction (SD). Detection of a rise and/or fall of cTnT, with at least one value greater than the 99th percentile (> or = 0.01) and with at least one of the following ?? Symptoms of ischemia ?? New or presumed new significant GT-rmsslld-T wave (ST-T) changes or new left bundle [...] additional sample may be indicated. Reference: [place] Definition of Myocardial Infarction. Journal of the [place] College of [employer]iology 2012;60:1581-98 Blood Venous Draw / Unknown 06/10/2021 3:44 AM EDT 06/10/2021 4:06 AM EDT Narrative Resulting Agency Comment Spec In Lab Isaiah Hoyos MD CHEMISTRY ORDERABLE S Performing Organization Address [facility]/ZIP Co de Phone Number [facility] [place] [address] * Green Tube HOLD (06/10/2021 3:44 AM EDT) Green Hold Sample in lab. [facility] Blood Venous Draw / Unknown 06/10/2021 3:44 AM EDT 06/10/2021 4:03 AM EDT Isaiah Hoyos MD CHEMISTRY ORDERABLE S Performing Organization Address [facility] Co de Phone Number [facility] [place] [address] * POCT Glucose (06/10/2021 3:44 AM EDT) Glucose, POC 191 65 - 199 mg/dL [facility] Comment: Supplemental ranges: <140 mg/dL before meals <180 mg/dL all other times of the day Blood 06/10/2021 3:44 AM EDT 06/10/2021 3:44 AM EDT Supa Alegria MD POINT OF CARE TEST O RDERABLES Performing Organization Address [facility] Co de Phone Number [facility] [place] [address] * Heparin (unfractionated) Level (06/10/2021 3:44 AM EDT) [facility] UF Heparin 0.38 IU/mL [facility] Comment: [...] Lab Isaiah Hoyos MD HEMATOLOGY ORDERABL ES [facility] [place] [address] * (ABNORMAL) Differential, Automated (06/10/2021 3:44 AM EDT) [facility] Neutrophil % 55.0 % [facility] Neutrophil Absolute 4.98 1.70 - 6.10 x10(3)/mc L [facility] Lymph % 29.1 % [facility] Lymphocytes Abs 2.6 0.9 - 3.2 x10(3)/mc L [facility] Monocyte % 7.5 % [facility] Monocyte Abs 0.7 0.3 - 0.9 x10(3)/mc L [facility] Eos % 5.9 % [facility] Eosinophils Abs 0.5(H) 0.0 - 0.4 x10(3)/[facility] Basophil % 1.1 % [facility] Baso Absolute 0.1 0.0 - 0.1 x10(3)/[facility] Immature Gran % 1.40 % [facility] Comment: Immature granulocytes(IG's)percentage and absolute count will include metamyelocytes, myelocytes, and promyelocytes. Blood smears from CBCs yielding IG's will be scanned manually for concordance. If this scan disagrees with the automated IG or if promyelocytes are noted, a manual differential will be performed. Immature Gran Absolute 0.13(H) 0.00 - 0.04 x10(3)/[facility] Blood 06/10/2021 3:44 AM EDT 06/10/2021 4:03 AM EDT Narrative Resulting Agency Comment Spec In Lab Isaiah Hoyos MD HEMATOLOGY ORDERABL ES [facility] [place] [address] * Hemogram (06/10/2021 3:44 AM EDT) White Blood Cell 9.0 4.0 - 9.5 x10(3)/[facility] Red Blood Cell 4.97 4.58 - 5.54 x10(6)/[facility] Hemoglobin 14.2 13.7 - 16.5 g/dL [facility] Hematocrit 42.8 40.5 - 48.5 % [facility] Mean Cell Volume 86.1 82.9 - 93.1 fL [facility] Mean Cell Hemoglobin 28.6 27.5 - 32.1 pg [facility] Mean Cell Hemoglobin Concentration 33.2 32.0 - 35.7 g/dL [facility] Platelet 251 145 - 357 x10(3)/[facility] RDW Standard Deviation 40.5 36.0 - 45.0 [facility] RDW coefficient of variation 13.0 11.4 - 13.8 % [facility] Mean Platelet Volume 10.5 7.6 - 12.9 [facility] NRBC% auto 0.0 % [facility] NRBC Absolute 0.000 0.000 - 0.000 x10(3)/[facility] Blood 06/10/2021 3:44 AM EDT 06/10/2021 4:03 AM EDT Narrative Resulting Agency Comment Spec In Lab Isaiah Hoyos MD HEMATOLOGY ORDERABL ES Performing Organization Address [facility]/ZIP Co de Phone Number [facility] [place] [address] * POCT Glucose (06/09/2021 11:57 PM EDT) Glucose, POC 147 65 - 199 mg/dL [facility] Comment: Supplemental ranges: <140 mg/dL before meals <180 mg/dL all other times of the day Blood 06/09/2021 11:5 7 PM EDT 06/09/2021 11:57 PM EDT Supa Alegria MD POINT OF CARE TEST O RDERABLES Performing Organization Address [facility]/ZIP Co de Phone Number [facility] [place] [address] * POCT Glucose (06/09/2021 8:06 PM EDT) Glucose, POC 193 65 - 199 mg/dL [facility] Comment: Supplemental ranges: <140 mg/dL before meals <180 mg/dL all other times of the day Blood 06/09/2021 8:06 PM EDT 06/09/2021 8:06 PM EDT Supa Alegria MD POINT OF CARE TEST O RDERABLES [facility] [place] [address] * Troponin (06/09/2021 5:47 PM EDT) Troponin-T [...] meets the diagnosis for a myocardial infarction (SD). Detection of a rise and/or fall of cTnT, with at least one value greater than the 99th percentile (> or = 0.01) and with at least one of the following ?? Symptoms of ischemia ?? New or presumed new significant SH-jnrgodr-B wave (ST-T) changes or new left bundle [...] additional sample may be indicated. Reference: Third [place] Definition of Myocardial Infarction. Journal of the [place] [employer] 2012;60:1581-98 Blood 06/09/2021 5:47 PM EDT 06/09/2021 6:02 PM EDT Narrative Resulting Agency Comment Spec In Lab Isaiah Hoyos MD CHEMISTRY ORDERABLE S [facility] [place] [address] * (ABNORMAL) POCT Glucose (06/09/2021 4:40 PM EDT) Glucose, POC 200(H) 65 - 199 mg/dL [facility] Comment: Supplemental ranges: <140 mg/dL before meals <180 mg/dL all other times of the day Blood 06/09/2021 4:40 PM EDT 06/09/2021 4:40 PM EDT Supa Alegria MD POINT OF CARE TEST O RDERAAIRAM Performing Organization Address [facility] de Phone Number [facility] [place] [address] * (ABNORMAL) POCT Glucose (06/09/2021 3:02 PM EDT) Glucose, POC 209(H) 65 - 199 mg/dL [facility] Comment: Supplemental ranges: <140 mg/dL before meals <180 mg/dL all other times of the day Blood 06/09/2021 3:02 PM EDT 06/09/2021 3:02 PM EDT Supa Alegria MD POINT OF CARE TEST O EVITA Performing Organization Address [facility] Phone Number [facility] [place] [address] * ECHO COMPLETE W CONTRAST (06/09/2021 1:52 PM EDT) Anatomical Region Laterality Modality Other 06/09/2021 Narrative 06/09/2021 2:16 PM EDT Procedure: ?Transthoracic Echocardiogram Patient: ?COELHO ROMEO A ? (Age): 1965(56y) Med Rec#: ? [id number] ?Sex: ?M ? Site Loc: ? [facility] [facility] ?Ht / Wt: ??177(cm)/114(kg) Pt. Loc: ?[facility] ? BSA: ?2.29 Study Date: ?? 06/09/2021 ?Pt. Type: Inpatient Tape: ? Referring: [email or web address] Reading: Zuleyka Hodgson ([id number]) Virtual Classroom Manager: Ortiz Sandoval Diagnosis: *Chest pain, unspecified [...] Vmax ?0.67 ? m/sec ? MV deceleration [id number] ? msec ? MV A-wave Vmax ?0.48 [...] 06/09/2021 14:15:33 Images reviewed and interpretation verified [facility] Procedure Note Zuleyka Hodgson MD - 06/09/2021 Procedure: Transthoracic Echocardiogram Patient: LAQUITA HARRIS(Age): 1965(56y) Med Rec#: [id number] Sex: M Site Loc: [facility] Ht / Wt: 177(cm)/114(kg) Pt. Loc: [facility] BSA: 2.29 Study Date: 06/09/2021 Pt. Type: Inpatient Tape: Referring: ALLISONMINHDA Reading: Zuleyka Hodgson ([id number]) Virtual Classroom Manager: Oritz Sandoval Diagnosis: *Chest pain, unspecified (R07.9) Rhythm: [...] MV E-wave Vmax 0.67 m/sec MV deceleration [id number] msec MV A-wave Vmax 0.48 m/sec MV [...] 06/09/2021 14:15:33 Images reviewed and interpretation verified [facility] Isaiah Hoyos MD ECHO ORDERABLES * (ABNORMAL) POCT Glucose (06/09/2021 11:49 AM EDT) Glucose, POC 258(H) 65 - 199 mg/dL [facility] Comment: Supplemental ranges: <140 mg/dL before meals <180 mg/dL all other times of the day Blood 06/09/2021 11:4 9 AM EDT 06/09/2021 11:49 AM EDT Supa Alegria MD POINT OF CARE TEST O RDERABLES [facility] [place] [address] * Troponin (06/09/2021 11:30 AM EDT) [facility] Troponin-T <0.01 0.00 - 0.00 ng/mL [facility] Comment: The 99th percentile for Troponin T is less than 0.01 ng/mL, any detectable cTnT concentration using this assay should be considered elevated. According to the third universal definition of myocardial infarction the following criteria with a clinical presentation consistent with acute myocardial ischemia meets the diagnosis for a myocardial infarction (SD). Detection of a rise and/or fall of cTnT, with at least one value greater than the 99th percentile (> or = 0.01) and with at least one of the following ?? Symptoms of ischemia ?? New or presumed new significant WZ-fkcqwth-U wave (ST-T) changes or new left bundle [...] additional sample may be indicated. Reference: Third [place] Definition of Myocardial Infarction. Journal of the [place] [employer] 2012;60:1581-98 Blood 06/09/2021 11:3 0 AM EDT 06/09/2021 11:44 AM EDT Narrative Resulting Agency Comment Spec In Lab Isaiah Hoyos MD CHEMISTRY ORDERABLE S Performing Organization Address [facility] de Phone Number [facility] [place] [address] * Heparin (unfractionated) Level (06/09/2021 11:30 AM EDT) Pathologist [facility] UF Heparin 0.32 IU/mL [facility] Comment: [...] ORDERABLE S Performing Organization Address [facility] Co de Phone Number [facility] [place] [address] * (ABNORMAL) POCT Glucose (06/09/2021 8:03 AM EDT) [facility] Glucose, POC 233(H) 65 - 199 mg/dL [facility] Comment: Supplemental ranges: <140 mg/dL before meals <180 mg/dL all other times of the day Blood 06/09/2021 8:03 AM EDT 06/09/2021 8:03 AM EDT Supa Alegria MD POINT OF CARE TEST O RDERABLES [facility] [place] [address] * (ABNORMAL) Differential, Automated (06/09/2021 5:50 AM EDT) Neutrophil % 56.8 % [facility] Neutrophil Absolute 4.64 1.70 - 6.10 x10(3)/mc L [facility] Lymph % 27.0 % [facility] Lymphocytes Abs 2.2 0.9 - 3.2 x10(3)/ L [facility] Monocyte % 8.6 % [facility] Monocyte Abs 0.7 0.3 - 0.9 x10(3)/ L [facility] Eos % 5.6 % [facility] Eosinophils Abs 0.5(H) 0.0 - 0.4 x10(3)/ L [facility] Basophil % 0.9 % [facility] Baso Absolute 0.1 0.0 - 0.1 x10(3)/ L [facility] Immature Gran % 1.10 % [facility] Comment: Immature granulocytes(IG's)percentage and absolute count will include metamyelocytes, myelocytes, and promyelocytes. Blood smears from CBCs yielding IG's will be scanned manually for concordance. If this scan disagrees with the automated IG or if promyelocytes are noted, a manual differential will be performed. Immature Gran Absolute 0.09(H) 0.00 - 0.04 x10(3)/ L [facility] Blood 06/09/2021 5:50 AM EDT 06/09/2021 6:06 AM EDT Narrative Resulting Agency Comment Spec In Lab Isaiah Hoyos MD HEMATOLOGY ORDERABL ES [facility] [place] [address] * Hemogram (06/09/2021 5:50 AM EDT) [facility] White Blood Cell 8.2 4.0 - 9.5 x10(3)/[facility] Red Blood Cell 4.87 4.58 - 5.54 x10(6)/[facility] Hemoglobin 14.1 13.7 - 16.5 g/dL [facility] Hematocrit 42.0 40.5 - 48.5 % [facility] Mean Cell Volume 86.2 82.9 - 93.1 fL [facility] Mean Cell Hemoglobin 29.0 27.5 - 32.1 pg [facility] Mean Cell Hemoglobin Concentration 33.6 32.0 - 35.7 g/dL [facility] Platelet 240 145 - 357 x10(3)/[facility] RDW Standard Deviation 40.7 36.0 - 45.0 [facility] RDW coefficient of variation 12.9 11.4 - 13.8 % [facility] Mean Platelet Volume 10.9 7.6 - 12.9 [facility] NRBC% auto 0.0 % [facility] NRBC Absolute 0.000 0.000 - 0.000 x10(3)/[facility] Blood 06/09/2021 5:50 AM EDT 06/09/2021 6:06 AM EDT Narrative Resulting Agency Comment Spec In Lab Isaiah Hoyos MD HEMATOLOGY ORDERABL ES Performing Organization Address City/[facility]/ZIP Co de Phone Number [facility] [place] [address] * Troponin (06/09/2021 5:50 AM EDT) [facility] Troponin-T <0.01 0.00 - 0.00 ng/mL [facility] Comment: The 99th percentile for Troponin T is less than 0.01 ng/mL, any detectable cTnT concentration using this assay should be considered elevated. According to the third universal definition of myocardial infarction the following criteria with a clinical presentation consistent with acute myocardial ischemia meets the diagnosis for a myocardial infarction (SD). Detection of a rise and/or fall of cTnT, with at least one value greater than the 99th percentile (> or = 0.01) and with at least one of the following ?? Symptoms of ischemia ?? New or presumed new significant EQ-vjtoqbs-J wave (ST-T) changes or new left bundle [...] additional sample may be indicated. Reference: Third [place] Definition of Myocardial Infarction. Journal of the [place] [employer] 2012;60:1581-98 Blood 06/09/2021 5:50 AM EDT 06/09/2021 6:05 AM EDT Narrative Resulting Agency Comment Spec In Lab Isaiah Hoyos MD CHEMISTRY ORDERABLE S [facility] [place] [address] * Heparin (unfractionated) Level (06/09/2021 5:50 AM EDT) UF Heparin 0.31 IU/mL [facility] Comment: [...] MD HEMATOLOGY ORDERABL ES Performing Organization Address [facility] Co de Phone Number [facility] [place] [address] * Blood culture (06/09/2021 5:50 AM EDT) Blood Culture No growth at 5 days. [facility] Blood ANTECUBITAL REGION STRUCTURE / Unknown 06/09/2021 5:50 AM EDT 06/09/2021 10:08 AM EDT Comment:#1 Narrative Resulting Agency Comment Spec In Lab Isaiah Hoyos MD MICROBIOLOGY - BLOO D ORDERABLES Performing Organization Address [facility] Co de Phone Number [facility] [place] [address] * Lipid Panel (Reflex Direct LDL) (06/09/2021 5:50 AM EDT) Cholesterol, Total 207 mg/dL [facility] Comment: Lower Risk: <200 mg/dL Average Risk: 200-239 mg/dL Higher Risk: >vi=246 mg/dL Triglyceride 235 mg/dL [facility] Comment: Average Risk/Lower Risk: <150 mg/dL Borderline High Risk: 150-199 mg/dL High Risk: 200-499 mg/dL Very High Risk: >df=916 mg/dL HDL Cholesterol 29 mg/dL [facility] Comment: Males: ?? Higher Risk: <40 mg/dL Females: ?? Higher Risk: <50 mg/dL LDL Cholesterol 131 mg/dL [facility] Comment: Lowest Risk: <100 mg/dL Lower Risk: 100-129 mg/dL Borderline High Risk: 130-159 mg/dL High Risk: 160-189 mg/dL Very High Risk: >ga=744 mg/dL Cholesterol/HDL Ratio 7.1 ratio [facility] Lipid Interpretation See Note [facility] Comment: Lipid management should be guided by a patient? s ASCVD risk, goals and preferences. ACC/AHA Guidelines recommend high intensity statin if clinical ASCVD or LDL greater than or equal to 190 mg/dL. http://Better Weekdays.com/JEV-YRQ-Wwxowsyha Adults aged 40-75 with LDL 70-189 mg/dL should have their 10 year ASCVD risk estimated with the ACC/AHA ASCVD risk food dehydrator operator http://tools.acc.org/LLCEE-Lfku-Crqdacvql/ Statin should be discussed if risk greater [...] Lab Isaiah Hoyos MD CHEMISTRY ORDERABLE S [facility] [place] [address] * COVID-19 PCR (06/09/2021 5:45 AM EDT) SARS-CoV-2 RNA (Rapid) Not Detected Not Detected [facility] Comment: This result should [...] using the Simplexa COVID-19 Direct Assay by [employer] as authorized by the FDA issued Emergency [...] Department of Pathology and Laboratory Medicine at [facility], certified under the Clinical Laboratory Improvement Amendments [...] fact sheets at the following FDA website: https://www.fda.gov/medical-devices/wbqgpgjojlj-mrshzio-4899-kslya-04-oqdpsvegs- use-a ooitngxvstggj-ecfdsec-cxcwkux/wuywo-joabfiioahf-lsjw SARS-CoV-[address] LAB TECHNICIAN Swab [facility] Nasopharyngeal Swab 06/09/20 5:45 AM EDT 06/10/2021 6:15 AM EDT Comment:Symptoms->Surveillan ce Narrative Resulting Agency Comment Spec In Lab Isaiah Hoyos MD MICROBIOLOGY - GENE RAL ORDERABLES Performing Organization Address [facility]/ZIP Co de Phone Number [facility] [place] [address] * (ABNORMAL) POCT Glucose (06/09/2021 4:20 AM EDT) Glucose, POC 224(H) 65 - 199 mg/dL [facility] Comment: Supplemental ranges: <140 mg/dL before meals <180 mg/dL all other times of the day Blood 06/09/2021 4:20 AM EDT 06/09/2021 4:20 AM EDT Supa Alegria MD POINT OF CARE TEST O RDERABLES Performing Organization Address [facility] Co de Phone Number [facility] [place] [address] * (ABNORMAL) POCT Glucose (06/09/2021 12:35 AM EDT) Glucose, POC 346(H) 65 - 199 mg/dL [facility] Comment: Supplemental ranges: <140 mg/dL before meals <180 mg/dL all other times of the day Blood 06/09/2021 12:3 5 AM EDT 06/09/2021 12:35 AM EDT Zuleyka Hodgson MD POINT OF CARE T EST ORDERABLES Performing Organization Address [facility] Co de Phone Number [facility] [place] [address] * Heparin (unfractionated) Level (2021 10:41 PM EDT) UF Heparin 0.26 IU/mL [facility] Comment: [...] Lab Isaiah Hoyos MD HEMATOLOGY ORDERABL ES [facility] [place] [address] * EKG 12 Lead (2021 8:46 PM EDT) Ventricular rate 69 BPM MUSE SYSTEM Atrial Rate 69 BPM MUSE SYSTEM P-R Interval 148 ms MUSE SYSTEM QRS Duration 84 ms MUSE SYSTEM Q-T Interval 384 ms MUSE SYSTEM QTC Calculated (Bezet) 411 ms MUSE SYSTEM Calculated P [place] 39 degrees MUSE SYSTEM Calculated R [place] 14 degrees MUSE SYSTEM Calculated T [place] 21 degrees MUSE SYSTEM INTERPRETATION Normal sinus [...] 5 days. [facility] Blood 2021 8:26 PM EDT 2021 8:57 PM EDT Narrative Resulting Agency Comment Spec In Lab Isaiah Hoyos MD MICROBIOLOGY - BLOO D ORDERABLES [facility] [place] [address] * Troponin (2021 7:31 PM EDT) Troponin-T [...] meets the diagnosis for a myocardial infarction (SD). Detection of a rise and/or fall of cTnT, with at least one value greater than the 99th percentile (> or = 0.01) and with at least one of the following ?? Symptoms of ischemia ?? New or presumed new significant BF-ecyjing-O wave (ST-T) changes or new left bundle [...] additional sample may be indicated. Reference: Third [place] Definition of Myocardial Infarction. Journal of the [place] [employer] 2012;60:1581-98 Blood 2021 7:31 PM EDT 2021 7:37 PM EDT Narrative Resulting Agency Comment Spec In Lab sIaiah Hoyos MD CHEMISTRY ORDERABLE S [facility] [place] [address] * (ABNORMAL) Differential, Automated (2021 7:31 PM EDT) Neutrophil % 53.6 % [facility] Neutrophil Absolute 4.36 1.70 - 6.10 x10(3)/mc L [facility] Lymph % 28.5 % [facility] Lymphocytes Abs 2.3 0.9 - 3.2 x10(3)/ L [facility] Monocyte % 10.8 % [facility] Monocyte Abs 0.9 0.3 - 0.9 x10(3)/ L [facility] Eos % 5.4 % [facility] Eosinophils Abs 0.4 0.0 - 0.4 x10(3)/ L [facility] Basophil % 1.0 % [facility] Baso Absolute 0.1 0.0 - 0.1 x10(3)/ L [facility] Immature Gran % 0.70 % [facility] Comment: Immature granulocytes(IG's)percentage and absolute count will include metamyelocytes, myelocytes, and promyelocytes. Blood smears from CBCs yielding IG's will be scanned manually for concordance. If this scan disagrees with the automated IG or if promyelocytes are noted, a manual differential will be performed. Immature Gran Absolute 0.06(H) 0.00 - 0.04 x10(3)/ L [facility] Blood 2021 7:31 PM EDT 2021 7:37 PM EDT Narrative Resulting Agency Comment Spec In Lab Isaiah Hoyos MD HEMATOLOGY ORDERABL ES [facility] [place] [address] * (ABNORMAL) Hemogram (2021 7:31 PM EDT) [facility] White Blood Cell 8.1 4.0 - 9.5 x10(3)/[facility] LABORATORY Red Blood Cell 4.65 4.58 - 5.54 x10(6)/[facility] Hemoglobin 13.5(L) 13.7 - 16.5 g/dL [facility] Hematocrit 39.4(L) 40.5 - 48.5 % [facility] Mean Cell Volume 84.7 82.9 - 93.1 fL [facility] Mean Cell Hemoglobin 29.0 27.5 - 32.1 pg [facility] Mean Cell Hemoglobin Concentration 34.3 32.0 - 35.7 g/dL [facility] Platelet 219 145 - 357 x10(3)/[facility]ATORY RDW Standard Deviation 39.9 36.0 - 45.0 [facility] RDW coefficient of variation 13.1 11.4 - 13.8 % [facility] Mean Platelet Volume 10.5 7.6 - 12.9 [facility]ORY NRBC% auto 0.0 % [facility] NRBC Absolute 0.000 0.000 - 0.000 x10(3)/[facility] Blood 2021 7:31 PM EDT 2021 7:37 PM EDT Narrative Resulting Agency Comment Spec In Lab Isaiah Hoyos MD HEMATOLOGY ORDERABL ES [facility] [place] [address] * (ABNORMAL) Basic Metabolic Panel (non-fasting) (2021 7:31 PM EDT) [facility] Glucose 244(H) 65 - 199 mg/dL [facility] Comment:Diabetes: >=200 mg/d L plus symptoms Blood Urea Nitrogen 12 10 - 20 mg/dL [facility] Creatinine 0.73(L) 0.80 - 1.50 mg/dL [facility] Sodium 133(L) 135 - 145 mmol/L [facility] Potassium 4.0 3.5 - 5.0 mmol/L [facility] Comment: Please note: ??Patients with WBC >100,000 may have falsely elevated Potassium levels. ??For accurate Potassium quantification in these patients send serum separator tube (gold top) for subsequent determinations. ??Contact the Clinical Chemistry Laboratory if there are any questions. Chloride 100 98 - 107 mmol/L [facility] Carbon Dioxide 22 22 - 31 mmol/L [facility] Anion Gap 11 5 - 15 mmol/L [facility] Calcium 9.3 8.5 - 10.5 mg/dL [facility] Est Glomerular Filtration Rate 105 >=60 mL/min/1. 73 m?? [facility] Comment: This patient? s [...] Lab Isaiah Hoyos MD CHEMISTRY ORDERABLE S [facility] [place] [address] documented in this encounter Visit Diagnoses Not [...] 0932 (Given - Provider: Fabienne Morelos RN)1041 ([facility] Hold - Provider: Admin Adt - Reason: Transfer to a Procedural area)1224 ([facility] Unhold - Provider: Admin [...] 0932 (Given - Provider: Fabienne Morelos RN)1041 ([facility] Hold - Provider: Admin Adt - Reason: Transfer to a Procedural area)1224 ([facility] Unhold - Provider: Admin Adt) DULoxetine DR (Cymbalta) capsule 60 mg 60 mg, Oral, 2 TIMES DAILY, First dose on 06/08/21 at 2115, Until Discontinued, Routine 2140 (Given - Provider: Arturo Morris RN) 0837 (Given - Provider: Fabienne Morelos RN)2021 (Given - Provider: Emily Olmedo RN) 0932 (Given - Provider: Fabienne Morelos RN)1041 ([facility] Hold - Provider: Admin Adt - Reason: Transfer to a Procedural area)1224 ([facility] Unhold - Provider: Admin Adt) gabapentin (Neurontin) capsule 300 mg 300 mg, Oral, 3 TIMES DAILY, First dose on 06/08/21 at 2115, Until Discontinued, Routine 2140 (Given - Provider: Arturo Morris RN) 0837 (Given - Provider: Fabienne Morelos RN)152 (Given - Provider: Fabienne Morelos RN)202 (Given - Provider: Emily Olmedo RN) 0932 (Given - Provider: Fabienne Morelos RN)1041 ([facility] Hold - Provider: Admin Adt - Reason: Transfer to a Procedural area)1224 ([facility] Unhold - Provider: Admin Adt)1544 [...] Provider: Fabienne Morelos RN)2000 (Given - Provider: mEily Olmedo RN) 0000 (Not Given - Provider: [...] - Reason: Transfer to a Procedural area)1224 ([facility] Unhold - Provider: Admin [...] - Reason: Transfer to a Procedural area)1224 ([facility] Unhold - Provider: Admin [...] - Reason: Transfer to a Procedural area)1224 ([facility] Unhold - Provider: Admin Adt)1238 (Given - Provider: Fabienne Morelos RN) rosuvastatin (Crestor) tablet 40 mg 40 mg, Oral, EVERY EVENING, First dose on Thu06/10/21 at 1700, Until Discontinued, Routine 1041 (OCT Hold - Provider: Admin Adt - Reason: Transfer to a Procedural area)1224 ([facility] Unhold - Provider: Admin Adt)1633 [...] - Reason: Transfer to a Procedural area)1224 ([facility] Unhold - Provider: Admin [...] Jose Damon MD - Comment: Contrast in Healthcare Liaison) lidocaine (Xylocaine) 1% (10 mg/mL) injection 3 mg 3 mg (0.3 mL), Subcutaneous, ONCE PRN, 1 dose, Starting on 06/08/21 at 1909, Until Thu06/10/21 at 2029, for discomfort with PIV insertion, Routine 1041 (OCT Hold - Pro vider: Admin Adt - Reason: Transfer to a Procedural area)1224 ([facility] Unhold - Provider: Admin [...] - Reason: Transfer to a Procedural area)1224 ([facility] Unhold - Provider: Admin [...] - Reason: Transfer to a Procedural area)1224 ([facility] Unhold - Provider: Admin [...] Prov ider: Naye Song RN - Comment: Healthcare Liaison Flush Line) verapamiL (Isoptin) (2.5 mg/mL) injection [...] Routine documented in this encounter Care Teams Puff Ironer Relationship Specialty Start Date End Date Coni Lim MD [address] [place] [address] PCP - General 07/16/10 documented as of this encounter
--- OUTSIDE RECORDS SUMMARY | 2024-08-22 18:44 | XMS_ITS | Encounter Summary ---
Author Organization [facility] Address [facility] [place] [address] Care Team Providers Care Commercial Sales Consultant Name Role Phone Coni Lim MD Primary Care Provider [phone] Encounter Details Date Type Department Care Team (Late st Contact Info) Description 04/07/2023 7:25 PM EDT Ancillary Procedure Radiology [facility] [place] [address] Patel Griggs MD [facility] [place] [address] Social History Tobacco Use Types Packs/Day Years [...] IMG FILM LIBRARY ORD ERABLES [facility] [place] documented in this encounter Visit Diagnoses Not on filedocumented in this encounter Care Teams Commercial Sales Consultant Relationship Specialty Start Date End Date Coni Lim MD [address] [place] [address] PCP - General 07/16/10 documented as of this encounter
--- OUTSIDE RECORDS SUMMARY | 2024-08-22 18:44 | XMS_ITS | Encounter Summary ---
Author Organization [facility] Address [facility] [place] [address] Care Team Providers Care Gray Tender Name Role Phone Coni Lim MD Primary Care Provider [phone] Encounter Details Date Type Department Care Team (Late st Contact Info) Description 04/07/2023 7:35 PM EDT Ancillary Procedure Radiology Library at [facility] [place] [address] Patel Griggs MD [facility] [place] [address] Social History Tobacco Use Types Packs/Day Years [...] Abdomen Pelvis (04/07/2023 7:23 PM EDT) [facility]ative [facility] 04/07/2023 7:23 PM EDT This exam is auto-finalizing. It's purpose is for storage only. Patel Griggs MD [facility] FILM LIBRARY ORD ERABLES [place], [place] documented in this encounter Visit Diagnoses Not on filedocumented in this encounter Care Teams Gray Tender Relationship Specialty Start Date End Date Coni Lim MD [address] [place] [address] PCP - General 07/16/10 documented as of this encounter
--- OUTSIDE RECORDS SUMMARY | 2024-08-22 18:44 | XMS_ITS | Encounter Summary ---
Author Organization [facility] Address [facility] [place] [address] Care Team Providers Care Systems Requirements Planner Name Role Phone Coni Lim MD Primary Care Provider [phone] Encounter Details Date Type Department Care Team (Late st Contact Info) Description 04/07/2023 External [place] [address] Social History Tobacco Use Types Packs/Day Years [...] on filedocumented in this encounter Care Teams Systems Requirements Planner Relationship Specialty Start Date End Date Coni Lim MD [address] [place] [address] PCP - General 07/16/10 documented as of this encounter
--- OUTSIDE RECORDS SUMMARY | 2024-08-22 18:44 | XMS_ITS | Encounter Summary ---
Author Organization [facility] [place] [address] Care Team Providers Care Dental Specialist Name Role Phone Coni Lim MD Primary Care Provider Reason for Referral * Audiology Exam (Routine) - Closed Specialty Diagnoses / Procedures Referred By Contac t Referred To Contact Audiology Diagnoses Bilateral hearing loss, unspecified hearing loss type Coni Lim MD [address] [place] [address] [facility] [address] [place] [phone] Referral ID Status Reason Start Date Expiration Date V isits Requested Visits Authorized [id number] Closed Specialty Service Requested PCP Updated and/or Approved 12/04/2023 06/06/2024 6 6 Encounter Details Date Type Department Care Team (Latest Contact Info) Description 12/24/2023 Transcribe Orders eDH Incoming Referrals [phone] Coni Lim MD [address] [place], [place] [id number] Bilateral hearing loss, unspecified hearing loss type [...] type documented in this encounter Care Teams Dental Specialist Relationship Specialty Start Date End Date Coni Lim MD [address] [place] [address] PCP - General 07/16/10 documented as of this encounter
--- OUTSIDE RECORDS SUMMARY | 2024-08-22 18:44 | XMS_ITS | Encounter Summary ---
[place] [address] Care Team Providers Care Sliver Machine Operator Name Role Phone Coni Lim MD Primary Care Provider [phone] Reason for Referral * Consultation (Routine) - Closed Specialty Diagnoses / Procedures Referred By Ruby garvin Referred To Contact General Surgery Diagnoses Nontoxic single thyroid nodule Kevin Landaverde MD [address] [place] [address] [facility] [address] [place] [address] Referral ID Status Reason Start Date Expiration Date V isits Requested Visits Authorized [id number] Closed Consult, Test & Treat 01/30/2022 01/30/2023 1 1 Encounter Details Date Type Department Care Team (Late st Contact Info) Description 01/30/2022 Transcribe Orders [place] [id number] Kevin Landaverde MD [address] [place] [address] [place], [place] [id number] Nontoxic single thyroid nodule Social History Tobacco [...] goiter documented in this encounter Care Teams Sliver Machine Operator Relationship Specialty Start Date End Date Coni Lim MD [address] [place] [address] PCP - General 07/16/10 documented as of this encounter
--- OUTSIDE RECORDS SUMMARY | 2024-08-22 18:44 | XMS_ITS | Encounter Summary ---
Author Organization [facility] Address [facility] [place] [address] Care Team Providers Care Fourdrinier Machine Operator Name Role Phone Coni Lim MD Primary Care Provider [phone] Encounter Details Date Type Department Care Team (Late st Contact Info) Description 04/07/2023 7:40 PM EDT Ancillary Procedure Radiology Library at [facility] [place] [address] Patel Griggs MD [facility] [place] [place] [address] Social History Tobacco Use Types Packs/Day Years [...] [facility] [place] FILM LIBRARY ORD ERABLES DH [place], [place] documented in this encounter Visit Diagnoses Not on filedocumented in this encounter Care Teams Fourdrinier Machine Operator Relationship Specialty Start Date End Date Coni Lim MD [address] [place] [address] PCP - General 07/16/10 documented as of this encounter
--- OUTSIDE RECORDS SUMMARY | 2024-08-22 18:45 | XMS_ITS | Encounter Summary ---
Author Organization [facility] Address [facility] [place] [address] Care Team Providers Care Bank Sales And Service Manager Name Role Phone Coni Lim MD Primary Care Provider [phone] Reason for Visit * Consultation (Routine) - Closed Specialty Diagnoses / Procedures Referred By Contsigifredo t Referred To Contact Ophthalmology Diagnoses inflammed caruncle od Darjee, Jaymal, OD [address] [place] [address] Keeley Paredes MD [facility] [place] [address] Referral ID Status Reason Start Date Expiration Date V isits Requested Visits Authorized [id number] Closed Consult, Test & Treat 09/28/2019 09/27/2020 1 1 Encounter Details Date Type Department Care Team (Late st Contact Info) Description 05/24/2020 10:15 AM EDT Office [place] [address] Keeley Paredes MD Conjunctival lesion Social History [...] conjunctiva documented in this encounter Care Teams Bank Sales And Service Manager Relationship Specialty Start Date End Date Coni Lim MD [address] [place] [address] PCP - General 07/16/10 documented as of this encounter
--- OUTSIDE RECORDS SUMMARY | 2024-08-22 18:45 | XMS_ITS | Encounter Summary ---
Author Organization [facility] [place] [address] Care Team Providers Care Bleach Analyst Name Role Phone Coni Lim MD Primary Care Provider [phone] Encounter Details Date Type Department Care Team (Late st Contact Info) Description 05/24/2020 [place] [address] Keeley Paredes MD Social History Tobacco Use [...] on filedocumented in this encounter Care Teams Bleach Analyst Relationship Specialty Start Date End Date Coni Lim MD [address] [place] [address] PCP - General 07/16/10 documented as of this encounter
--- OUTSIDE RECORDS SUMMARY | 2024-08-22 18:45 | XMS_ITS | Encounter Summary ---
Author Organization [facility] Address [facility] [place] [address] Care Team Providers Care Cloth Napping Supervisor Name Role Phone Coni Lim MD Primary Care Provider [phone] Reason for Visit * Auth/Cert Specialty Diagnoses / Procedures Referred By Ruby garvin Referred To Contact Diagnoses Unstable angina Chest pain Procedures EMERGENCY IPI Referral ID Status Reason Start Date Expiration Date Visits Re quested Visits Authorized [id number] 1 1 Encounter Details Date Type Department Care Team (Late st Contact Info) Description 2021 7:02 PM EDT - 06/10/2021 6:29 PM EDT Hospital Encounter Intermediate [place] [id number] Zuleyka Hodgson MD [facility] [place] [id number] Supa Alegria MD [facility] [place] [id number] Chest pain, unspecified type Discharge Disposition: Home [...] Romeo Coe Patient Age: 56 y.o. Language: Cook Islander Race: White Ethnicity: Not nor Admit date: 2021 Discharge date and time: 06/10/2021 5:40 PM Attending Physician: Supa Alegria MD Discharge Physician: Supa Alegria MD Follow-up Recommendations for Providers: Romeo Coe is a 56 year old male admitted for chest pain concerning for unstable angina. 1. ASCVD / Microvascular angina: [facility] 06/10/21 without obstructive CAD and with patent [...] Escobar APRN Sarah Hansen, PA-C Cardiovascular Medicine [phone] Discharge Diagnoses (Hospital Problems) and Secondary Diagnoses (Chronic Problems): Active Hospital Problems Diagnosis ??? Unstable angina ??? Chest pain ??? Smoker ??? CAD (coronary artery disease) ??? Dyslipidemia ??? HTN (hypertension) ??? DM (diabetes mellitus) Resolved Hospital Problems No resolved problems to display. Active Non-Hospital Problems Diagnosis ??? Hx-TIA (transient ischemic attack) ??? GERD (gastroesophageal reflux disease) ??? Conjunctival lesion Operations/Major Procedures: [facility] 06/10/21 Hemodynamics: Left Heart Pressures Resting: Syst [...] 2011, LAD stent in 2012, RCA stent [id number]. His most recent coronary angiogram (2019) showed [...] since 2011 and last JACINDA to RCA [id number]. Last LHC 2019 with residual ~40% LAD [...] SOB prior to discharge. Follow up with body work auto trimmer, Dr. Gutierrez, was arranged. ?? Right??groin cellulitis, abscess with spontaneous drainage Patient noted to have right groin erythema consistent with cellulitis. He remained afebrile and without leukocytosis. Blood cultures obtained at OSH were NGTD at 2 days (spoke with microbiology at [facility] on 06/10/21). These were repeated [...] CTA chest was made. ?? Diabetes mellitus, nyt-nfpacjd-xkplbvblm, uncontrolled A1c of 9.4%. Home metformin held for cath. Additional coverage with sliding scale and meal associated insulin. Hold metformin for 48 hours after contrast exposure. Diabetes management team consulted.Recommendations to continue metformin 1000mg BID and further management per PCP. Could consider SGLT2i. ?? HTN BP trend 12 hours prior to discharge were BP: (102-134)/(65-81) . He was continued on home jaloafiw52.5mg daily, metoprolol succinate 100mg daily and Imdur [...] Studies and Lab Data: Blood cultures at [facility] and [facility]. Discharge Conditions/Prognosis: Alert and oriented x 3, ambulatory-independent. Ambulated without chest pain or SOB prior to discharge. Discharge to: Home. Updated Allergies/ADRs: Allergies Allergen Reactions ??? Thallium-201 Severe cardiac event ??? Lisinopril Other (See Comments) cough ??? Paper Tape [Adhesive Tape] Rash Immunizations Given this Hospitalization: Immunization History Administered Date(s) Administered ??? Influenza PF, Split 07/30/2013 ??? Influenza Vaccine (Novel) [id number], Injectable 05/24/2009 ??? Influenza Vaccine w/Preservative, Split [...] of 8AM-5PM please call the Cardiology Clinic [phone] to speak with a nurse. All other hours please call the Hospital Septic Tank Installer [phone] and ask to speak to the sales representative jewelry on-call. Return to work: One week Driving: [...] Time PCP COLEEN Wen [address] [place] [address] Jun 20 10:00am Deliverer Merchandise Dr. Gutierrez [facility] Cardiology [phone] ThursdayJul 23 11:40am Discharge References/Attachments Angina ([place] Islander) Discussed with MD Coni Escobar PA-C Pager #[phone] 06/10/2021 documented in this encounter Discharge Instructions [...] of 8AM-5PM please call the Cardiology Clinic [phone] to speak with a nurse. All other hours please call the Hospital Septic Tank Installer [phone] and ask to speak to the sales representative jewelry on-call. Return to work: One week Driving: [...] Time PCP COLEEN Wen [address] [place] [address] Jun 20 10:00am Deliverer Merchandise Dr. [facility] Cardiology [phone] ThursdayJul 23 11:40am * Patient Instructions* Coni Lew PA - 06/10/2021 3:07 PM EDT * Attachments The following attachments cannot be sent through Care Everywhere. * Angina ([place] Islander) documented in this encounter Medications at Time [...] Transport initiated/not confirmed: Spoke with NOELLE from [facility] who initiated a ride with their scheduling department/dispatch to pick patient up at discharge 06/10/21 from the MAIN entrance at ~18:00 en route to HOME UPDATE 16:06 Discharge Transportation confirmed: Spoke with ELMIRA from [facility] who confirmed a clamp truck driver provided by loan [employer] will arrive to pick patient up at discharge 06/10/21 from the MAIN entrance at 18:00 en route to HOME. Bedside nurse notified via eDH chat. [facility] PHONE: [phone] * Supa Alegria MD - 06/10/2021 8:04 AM EDT Images from the original note were not included. Inpatient Cardiology Progress Note Patient Name: Romeo Coe Service: MARINE INSULATOR / PA Responsible Attending: Supa Alegria MD [...] nausea overnight,patient reports resolution. In agreement for [facility] today. Continues on IV antibiotics for concern [...] since 2011 and last JACINDA to RCA [id number]. Last LHC 2018 with residual ~40% LAD [...] PRN EKG for chest pain Plan for [facility] today, remains NPO Right groin cellulitis, abscess [...] chest at this time ?? Diabetes mellitus, jug-qmvpuvr-nbghfmukx, uncontrolled A1c of 9.4% Hold home metformin [...] Discussed with MD Coni Escobar PA-C Pager #[phone] 06/10/2021 Cardiology Attending Note I have seen and examined the patient. I agree with the findings above. Of note, he is feeling well today. His groin site shows no evidence of fluid collection. Blood cultures show no growth. We will proceed with coronary angiography and possible PCI Supa Alegria MD [facility] Total time spent on review of [...] Progress Note Patient Name: Romeo Coe Service: MARINE INSULATOR / PA Responsible Attending: Supa Alegria MD Reason for continued hospitalization: Evaluation and management of unstable angina- cath Right groin cellulitis-IV abx Medication adjustment Active Problems: Active Hospital Problems Diagnosis ??? Unstable angina ??? Chest pain ??? Smoker ??? CAD (coronary artery disease) -Coronary Angio 07/29/2013: 65% (FFR 0.74) mid LAD lesion s/p PCI with 3.5 X 18 mm JACINDA - [facility] 2009 post abnormal nuc stress +IW, EF [...] CTA at this time ?? Diabetes mellitus, pkj-mgnbyoq-gqzwvrwpu Poor control with A1c of 9.4 Carb [...] ?Routine Diet: Daily Healthy Menu Choices/Cardiac diet ([facility]-Diet) CHO counting level 2 DVT Prophylaxis: already [...] proceed tomorrow on antibiotics. Supa Alegria MD [facility] Total time spent on review of [...] PCP: Coni Lim MD PCP phone number: [phone] Date of Admission: 2021 ( Hospital Day 0 days ) Attending:Zuleyka Hodgson MD Patient Active Problem List Diagnosis ??? ','Unstable angina ??? Chest pain ??? Smoker ??? CAD (coronary artery disease) Overview Note: -Coronary Angio 07/29/2013: 65% (FFR 0.74) mid LAD lesion s/p PCI with 3.5 X 18 mm JACINDA - [facility] 2009 post abnormal nuc stress +IW, EF [...] of Onset ??? Myocardial Infarction Father [address] CT, CABG ??? Heart Disease Father ??? Diabetes [...] in the last 7068 hours. Invalid input(s): RAWTQNVKQZP2E No results for input(s): POCGLU in the last 168 hours. Heme No results for input(s): LDH, HAPTOGLOBIN, URICACID in the last 168 hours. ABG (Arterial Blood Gas) No results found for: PHART, PO2ART, FKH5PPQ, MLY2PBV Microbiology: Microbiology Results (Last 30 days) No [...] (porcine) AND heparin (porcine) infusion Recent diagnostics: [facility] (2019): Left Main The left main was [...] Obtain Echo - Serial cardiac enzymes - case monitor - Cardiac cath in a.m. - [...] infection. No hypoxia or tachycardia #Diabetes mellitus, syp-eisnujn-rzqvxsuzv, poor control with A1c of 9.4 -Diabetic [...] #Routine Diet: Daily Healthy Menu Choices/Cardiac diet ([facility]-Diet) 75/75/90 CHO counting level 3 DVT Prophylaxis: already on heparin drip Code Status: Attempt Cardiopulmonary Resuscitation - Inpatient Dispo: Pending clinical course Isaiah Hoyos MD Pager #[phone] 06/08/21 8:56 PM documented in this encounter [...] cath without complications. Coni Lew PA-C Pager #[phone] 06/10/2021 * Initial Assessments - Ruthie Macias RN - 06/10/2021 3:39 PM EDT Office of Care Management Initial Assessment Ruthie Macias RN reviewed record and discussed patient with Care Team. Source of Information: Team, bedside nurse, medical record, and Patient Introduced self/reviewed role; services accepted. Reason for Hospitalization: unstable angina Last COVID test: Lab Results Component Value Date [id number] Not Detected 06/09/2021 Past medical History: Past [...] dyer would be surrogate decision maker per [place] surrogatedecision making law. (Only good for 180 days) Any patient receiving care at [facility] must abide by [place] law. The hierarchy for surrogate decision making [...] (i) The agent with financial power of banking attorney or a conservator appointed in accordance [...] cane - straight Home Address confirmed as: [address] [place] [id number] Social & Family Supports: All names listed below confirmed with patient as current and correct Extended Emergency Contact Information Primary Emergency Contact: Dasia Coe Address: [address] [place] [address] [address] [facility] Mobile Relation: Spouse Current Care Provided by: [...] MEDICAID [place] Prescription Coverage: Yes Preferred Pharmacy: [facility] [place], [place] - [address] [place] [address] [place] [id number] [place] Status: Patient is a : No Primary Care Provider: Coni Lim MD [phone] Patient/Caregiver Goals of Treatment: dc to home [...] ambulation, driving. He drove his car to [facility] and then required a BLS to transport here to [facility]. He will require assistance in finding A ride to home when he is dced. Pt has supports in place to accessthe necessary care and or follow up after dishcharge and there are no RN CM or CHEMICAL RESEARCH WORKER needs that are identified at this time Plan: dc to home A member of the Care Management team will continue to monitor progress, follow for continuity of care and assist with transition of care planning. Ruthie Macias RN CM [phone] Pager [phone] * Consult Note - Elena Zaragoza APRN [...] management and to provide a review of intermediate teacher diabetes care. Diabetes History: Romeo Coe has [...] QPM ??? [OCT Hold] Vancomycin Level - [facility] Order Reminder NOT APPLICABLE Once ??? [...] of Onset ??? Myocardial Infarction Father [address] CT, CABG ??? Heart Disease Father ??? Diabetes [...] your patient Elena Zaragoza APRN Endocrinology Pager [phone] 70 minutes of this 80 minute visit was spent with the patient in counseling on diabetes and treatment plan, reviewing all glucose and insulin data as well as relevant laboratory results with the patient, and coordination of care on the inpatient unit * Brief Op Note - Jose Trimble MD - 06/10/2021 11:37 AM EDT Brief Operative Note Patient Name: Romeo Coe : [id number] MR#: [id number] Case Date: 06/10/2021 Deliverer Merchandise: * Jose Trimble MD - Primary * Syed Solorio MD - Fellow Preoperative diagnosis: nstemi Postoperative diagnosis:NSTEMI with stable coronary anatomy Preliminary Cardiac Catheterization Procedure Note: Procedure(s) performed: Coronary Angiography, Left Heart Cath Baseline Frailty Assessment: Definitions from [place] Study of Health and Aging Clinical Frailty [...] Full report to follow. JOSE TRIMBLE MD documentation manager Pager [phone] * Plan of Care - Fabienne Morelos RN - 06/09/2021 2:57 PM EDT OUTCOME EVALUATION NOTE: OUTCOME SUMMARY: A/O x4. VSS on RA. NSR on tele. Heparin gtt maintained per protocol.IV zosyn and vanc given per protocol. (see MAR). BG elevated, MD notified, insulin scale adjusted. PLAN MOVING FORWARD: BC results hemodialysis lab technician D/c planning INDIVIDUALIZED FALL PREVENTION [...] SOB reported, remains on room air overnight. [place] very nauseous after he went to the [...] further details. Isaiah Hoyos MD 2021 Pager [phone] documented in this encounter Plan of Treatment [...] 06/09/2021 5:50 AM EDT RAPID COVID-19 PCR ([facility]) Routine 06/09/2021 5:45 AM EDT POCT [...] * POCT Glucose (06/10/2021 4:20 PM EDT) [facility] Glucose, POC 177 65 - 199 mg/dL [facility] Comment: Supplemental ranges: <140 mg/dL before meals <180 mg/dL all other times of the day Blood 06/10/2021 4:20 PM EDT 06/10/2021 4:20 PM EDT Supa Alegria MD POINT OF CARE TEST O RDERABLES [facility] [place] [address] * Troponin (06/10/2021 1:07 PM EDT) [facility] Troponin-T <0.01 0.00 - 0.00 ng/mL [facility] Comment: The 99th percentile for Troponin T is less than 0.01 ng/mL, any detectable cTnT concentration using this assay should be considered elevated. According to the third universal definition of myocardial infarction the following criteria with a clinical presentation consistent with acute myocardial ischemia meets the diagnosis for a myocardial infarction (CT). Detection of a rise and/or fall of cTnT, with at least one value greater than the 99th percentile (> or = 0.01) and with at least one of the following ?? Symptoms of ischemia ?? New or presumed new significant JP-quoksac-Y wave (ST-T) changes or new left bundle [...] additional sample may be indicated. Reference: Third [place] Definition of Myocardial Infarction. Journal of the [place] College [employer] 2012;60:1581-98 Blood 06/10/2021 1:07 PM EDT 06/10/2021 1:18 PM EDT Narrative Resulting Agency Comment Spec In Lab Isaiah Hoyos MD CHEMISTRY ORDERABLE S Performing Organization Address City/[facility]/ZIP Co de Phone Number [facility] [place] [address] * POCT Glucose (06/10/2021 11:58 AM EDT) [facility] Signature Glucose, POC 175 65 - 199 mg/dL [facility] Comment: Supplemental ranges: <140 mg/dL before meals <180 mg/dL all other times of the day Blood 06/10/2021 11:5 8 AM EDT 06/10/2021 11:58 AM EDT Supa Alegria MD POINT OF CARE TEST O RDERABLES [facility] [place] [address] * CARDIAC CATHETERIZATION (06/10/2021 11:45 AM EDT) Anatomical Region Laterality Modality Other Narrative 06/10/2021 12:54 PM EDT ?[facility] ? Cardiac Catheterization/Intervention Report ? Patient Name: Coe, Romeo A. ? Procedure Date: 06/10/2021 ? A #: [id number] ? Primary Physician: Trimble, Jose V ? Case #: [id number] ? File Name: [id number] ? Catheterization Order Number: [id number] ? [facility] ? Final Report [place], [place] ? Patient Name: ? Romeo Coe ? ID#: ?[id number] ? : ?1965 ? Procedure Date: ? [...] was ?designated as ASA Class II. The [facility] clinical frailty scale is 2: Well. ? [...] procedure was Urgent. The indication for ?the laboratory administrative director visit is worsening angina. Chest pain [...] Procedure Note Jose Trimble MD - 06/10/2021 [facility] Cardiac Catheterization/Intervention Report Patient Name: Coe Romeo PopNatalie Procedure Date: 06/10/2021 A #: [id number] Primary Physician: Jose Trimble V Case #: [id number] File Name: [id number] Catheterization Order Number: [id number] [facility] FinalReport [place], [place] Patient Name: Romeo PopNatalie Coe ID#:[id number] :1965 Procedure Date: June 10, 2021 Case [...] was designated as ASA Class II. The [facility] clinical frailty scale is 2:Well. Diagnostic Tests: [...] diagnostic procedure was Urgent. The indicationfor the laboratory administrative director visit is worsening angina. Chest pain [...] units of heparin were administered. A total [id number] of Omnipaque were opened, 38cc of Omnipaque were administered zam92mv of Omnipaque were wasted. Radiation: Fluoro time [...] Glucose, POC 191 65 - 199 mg/dL [facility] Comment: Supplemental ranges: <140 mg/dL before meals <180 mg/dL all other times of the day Blood 06/10/2021 7:59 AM EDT 06/10/2021 7:59 AM EDT Supa Alegria MD POINT OF CARE TEST O RDERABLES [facility] [place] [address] * (ABNORMAL) BMP w/fasting Glucose (06/10/2021 3:44 AM EDT) Glucose Fasting 195(H) 65 - 99 mg/dL [facility] Comment: ?Fasting* Glucose Interpretive Criteria [...] of Diabetes Mellitus, Position Statement from the [place] [employer] Association. ??Diabetes Care, Volume 33, Supplement 1, Aug 2009 Blood Urea Nitrogen 9(L) 10 - 20 mg/dL [facility] Creatinine 0.79(L) 0.80 - 1.50 mg/dL [facility] Sodium 134(L) 135 - 145 mmol/L [facility] Potassium 4.1 3.5 - 5.0 mmol/L [facility] Comment: Please note: ??Patients with WBC >100,000 may have falsely elevated Potassium levels. ??For accurate Potassium quantification in these patients send serum separator tube (gold top) for subsequent determinations. ??Contact the Clinical Chemistry Laboratory if there are any questions. Chloride 103 98 - 107 mmol/L [facility] Carbon Dioxide 18(L) 22 - 31 mmol/L [facility] Anion Gap 13 5 - 15 mmol/L [facility] Calcium 9.4 8.5 - 10.5 mg/dL [facility] Est Glomerular Filtration Rate 102 >=60 mL/min/1. 73 m?? [facility] Comment: This patient? s estimated [...] In Lab Coni GROVER CHEMISTRY ORDERABLE S [facility] [place] [address] * Troponin (06/10/2021 3:44 AM EDT) Troponin-T <0.01 0.00 - 0.00 ng/mL [facility] Comment: The 99th percentile for Troponin T is less than 0.01 ng/mL, any detectable cTnT concentration using this assay should be considered elevated. According to the third universal definition of myocardial infarction the following criteria with a clinical presentation consistent with acute myocardial ischemia meets the diagnosis for a myocardial infarction (CT). Detection of a rise and/or fall of cTnT, with at least one value greater than the 99th percentile (> or = 0.01) and with at least one of the following ?? Symptoms of ischemia ?? New or presumed new significant JL-kpmmnlk-E wave (ST-T) changes or new left bundle [...] additional sample may be indicated. Reference: Third [place] Definition of Myocardial Infarction. Journal of the [place] College [employer] 2012;60:1581-98 Blood Venous Draw / Unknown 06/10/2021 3:44 AM EDT 06/10/2021 4:06 AM EDT Narrative Resulting Agency Comment Spec In Lab Isaiah Hoyos MD CHEMISTRY ORDERABLE S Performing Organization Address [facility] Co de Phone Number [facility] [place] [place] [address] * Green Tube HOLD (06/10/2021 3:44 AM EDT) Green Hold Sample in lab. [facility] Blood Venous Draw / Unknown 06/10/2021 3:44 AM EDT 06/10/2021 4:03 AM EDT Isaiah Hoyos MD CHEMISTRY ORDERABLE S Performing Organization Address [facility] Co de Phone Number [facility] [place] [address] * POCT Glucose (06/10/2021 3:44 AM EDT) Glucose, POC 191 65 - 199 mg/dL [facility] Comment: Supplemental ranges: <140 mg/dL before meals <180 mg/dL all other times of the day Blood 06/10/2021 3:44 AM EDT 06/10/2021 3:44 AM EDT Supa Alegria MD POINT OF CARE TEST O RDERABLES Performing Organization Address [facility] de Phone Number [facility] [place] [address] * Heparin (unfractionated) Level (06/10/2021 3:44 AM EDT) [facility] UF Heparin 0.38 IU/mL [facility] Comment: Guidelines for therapeutic unfractionated [...] MD HEMATOLOGY ORDERABL ES Performing Organization Address [facility] Co de Phone Number [facility] [place] [address] * (ABNORMAL) Differential, Automated (06/10/2021 3:44 AM EDT) [facility] Neutrophil % 55.0 % [facility] Neutrophil Absolute 4.98 1.70 - 6.10 x10(3)/mc L [facility] Lymph % 29.1 % [facility] Lymphocytes Abs 2.6 0.9 - 3.2 x10(3)/ L [facility] Monocyte % 7.5 % [facility] Monocyte Abs 0.7 0.3 - 0.9 x10(3)/[facility] Eos % 5.9 % [facility] Eosinophils Abs 0.5(H) 0.0 - 0.4 x10(3)/[facility] Basophil % 1.1 % [facility] Baso Absolute 0.1 0.0 - 0.1 x10(3)/[facility] Immature Gran % 1.40 % [facility] Comment: Immature granulocytes(IG's)percentage and absolute count will include metamyelocytes, myelocytes, and promyelocytes. Blood smears from CBCs yielding IG's will be scanned manually for concordance. If this scan disagrees with the automated IG or if promyelocytes are noted, a manual differential will be performed. Immature Gran Absolute 0.13(H) 0.00 - 0.04 x10(3)/[facility] Blood 06/10/2021 3:44 AM EDT 06/10/2021 4:03 AM EDT Narrative Resulting Agency Comment Spec In Lab Isaiah Hoyos MD HEMATOLOGY ORDERABL ES [facility] [place] [address] * Hemogram (06/10/2021 3:44 AM EDT) White Blood Cell 9.0 4.0 - 9.5 x10(3)/[facility] Red Blood Cell 4.97 4.58 - 5.54 x10(6)/[facility] Hemoglobin 14.2 13.7 - 16.5 g/dL [facility] Hematocrit 42.8 40.5 - 48.5 % [facility] Mean Cell Volume 86.1 82.9 - 93.1 fL [facility] Mean Cell Hemoglobin 28.6 27.5 - 32.1 pg [facility] Mean Cell Hemoglobin Concentration 33.2 32.0 - 35.7 g/dL [facility] Platelet 251 145 - 357 x10(3)/[facility] LABORATORY RDW Standard Deviation 40.5 36.0 - 45.0 [facility] LABORATORY RDW coefficient of variation 13.0 11.4 - 13.8 % [facility] LAB[facility]AT[facility] Mean Platelet Volume 10.5 7.6 - 12.9 [facility] LABORATORY NRBC% auto 0.0 % [facility] LABORATORY NRBC Absolute 0.000 0.000 - 0.000 x10(3)/[facility] LABORATORY Blood 06/10/2021 3:44 AM EDT 06/10/2021 4:03 AM EDT Narrative Resulting Agency Comment Spec In Lab Isaiah Hoyos MD HEMATOLOGY ORDERABL ES Performing Organization Address City/[facility]/ZIP Co de Phone Number [facility] [place] [address] * POCT Glucose (06/09/2021 11:57 PM EDT) Glucose, POC 147 65 - 199 mg/dL [facility] Comment: Supplemental ranges: <140 mg/dL before meals <180 mg/dL all other times of the day Blood 06/09/2021 11:5 7 PM EDT 06/09/2021 11:57 PM EDT Supa Alegria MD POINT OF CARE TEST O RDERABLES Performing Organization Address City/[facility]/ZIP Co de Phone Number [facility] [place] [address] * POCT Glucose (06/09/2021 8:06 PM EDT) Glucose, POC 193 65 - 199 mg/dL [facility] Comment: Supplemental ranges: <140 mg/dL before meals <180 mg/dL all other times of the day Blood 06/09/2021 8:06 PM EDT 06/09/2021 8:06 PM EDT Supa Alegria MD POINT OF CARE TEST O RDERABLES Performing Organization Address City/[facility]/ZIP Co de Phone Number [facility] [place] [address] * Troponin (06/09/2021 5:47 PM EDT) Troponin-T <0.01 0.00 - 0.00 ng/mL [facility] Comment: The 99th percentile for Troponin T is less than 0.01 ng/mL, any detectable cTnT concentration using this assay should be considered elevated. According to the third universal definition of myocardial infarction the following criteria with a clinical presentation consistent with acute myocardial ischemia meets the diagnosis for a myocardial infarction (CT). Detection of a rise and/or fall of cTnT, with at least one value greater than the 99th percentile (> or = 0.01) and with at least one of the following ?? Symptoms of ischemia ?? New or presumed new significant LJ-mkeocfv-X wave (ST-T) changes or new left bundle [...] additional sample may be indicated. Reference: Third [place] Definition of Myocardial Infarction. Journal of the [employer] [employer] 2012;60:1581-98 Blood 06/09/2021 5:47 PM EDT 06/09/2021 6:02 PM EDT Narrative Resulting Agency Comment Spec In Lab Isaiah Hoyos MD CHEMISTRY ORDERABLE S Performing Organization Address [facility]/ZIP Co de Phone Number [facility] [place] [address] * (ABNORMAL) POCT Glucose (06/09/2021 4:40 PM EDT) Glucose, POC 200(H) 65 - 199 mg/dL [facility] Comment: Supplemental ranges: <140 mg/dL before meals <180 mg/dL all other times of the day Blood 06/09/2021 4:40 PM EDT 06/09/2021 4:40 PM EDT Supa Alegria MD POINT OF CARE TEST O RDERAAIRAM Performing Organization Address [facility] Co de Phone Number [facility] [place] [address] * (ABNORMAL) POCT Glucose (06/09/2021 3:02 PM EDT) Glucose, POC 209(H) 65 - 199 mg/dL [facility] Comment: Supplemental ranges: <140 mg/dL before meals <180 mg/dL all other times of the day Blood 06/09/2021 3:02 PM EDT 06/09/2021 3:02 PM EDT Supa Alegria MD POINT OF CARE TEST O BOBERAAIRAM Performing Organization Address [facility] Co de Phone Number [facility] [place] [address] * ECHO COMPLETE W CONTRAST (06/09/2021 1:52 PM EDT) Anatomical Region Laterality Modality Other 06/09/2021 Narrative 06/09/2021 2:16 PM EDT Procedure: ?Transthoracic Echocardiogram Patient: ?LAQUITA DOHERTY A ? (Age): 1965(56y) Med Rec#: ? [id number] ?Sex: ?M ? Site Loc: ? [facility] ?Ht / Wt: ??177(cm)/114(kg) Pt. Loc: ?CC[facility] ? BSA: ?2.29 Study Date: ?? 06/09/2021 ?Pt. Type: Inpatient Tape: ? Referring: ALTUJJARMOHAMMAD Reading: Zuleyka Hodgson ([id number]) Garbage Pick Up Man: Ortiz Sandoval Diagnosis: *Chest pain, unspecified (R07.9) [...] Vmax ?0.67 ? m/sec ? MV deceleration uiek022.55 ? msec ? MV A-wave Vmax ?0.48 [...] 06/09/2021 14:15:33 Images reviewed and interpretation verified [facility] Cardiac Ultrasound Laboratory Procedure Note Zuleyka Hodgson MD - 06/09/2021 Procedure: Transthoracic Echocardiogram Patient: LAQUITA Pop (Age): 1965(56y) Med Rec#: [id number] Sex: M Site Loc: [facility] Ht / Wt: 177(cm)/114(kg) Pt. Loc: [facility] BSA: 2.29 Study Date: 06/09/2021 Pt. Type: Inpatient Tape: Referring: ALTUJJARMOHAMMAD Reading: Zuleyka Hodgson ([id number]) Garbage Pick Up Man: Ortiz Sandoval Diagnosis: *Chest pain, unspecified (R07.9) [...] MV E-wave Vmax 0.67 m/sec MV deceleration [id number] msec MV A-wave Vmax 0.48 m/sec MV [...] 06/09/2021 14:15:33 Images reviewed and interpretation verified [facility] Cardiac Ultrasound Laboratory Isaiah Hoyos MD ECHO ORDERABLES * (ABNORMAL) POCT Glucose (06/09/2021 11:49 AM EDT) Glucose, POC 258(H) 65 - 199 mg/dL [facility] Comment: Supplemental ranges: <140 mg/dL before meals <180 mg/dL all other times of the day Blood 06/09/2021 11:4 9 AM EDT 06/09/2021 11:49 AM EDT Supa Alegria MD POINT OF CARE TEST O RDERABLES [facility] [place] [address] * Troponin (06/09/2021 11:30 AM EDT) [facility] Troponin-T <0.01 0.00 - 0.00 ng/mL [facility] Comment: The 99th percentile for Troponin T is less than 0.01 ng/mL, any detectable cTnT concentration using this assay should be considered elevated. According to the third universal definition of myocardial infarction the following criteria with a clinical presentation consistent with acute myocardial ischemia meets the diagnosis for a myocardial infarction (CT). Detection of a rise and/or fall of cTnT, with at least one value greater than the 99th percentile (> or = 0.01) and with at least one of the following ?? Symptoms of ischemia ?? New or presumed new significant HH-lvbgmgr-U wave (ST-T) changes or new left bundle [...] additional sample may be indicated. Reference: Third [place] Definition of Myocardial Infarction. Journal of the [place] [employer] 2012;60:1581-98 Blood 06/09/2021 11:3 0 AM EDT 06/09/2021 11:44 AM EDT Narrative Resulting Agency Comment Spec In Lab Isaiah Hoyos MD CHEMISTRY ORDERABLE S Performing Organization Address [facility] de Phone Number [facility] [place] [address] * Heparin (unfractionated) Level (06/09/2021 11:30 AM EDT) UF Heparin 0.32 IU/mL [facility]OR[facility] Comment: Guidelines for therapeutic unfractionated [...] ORDERABLE S Performing Organization Address [facility] de Phone Number [facility] [place] [address] * (ABNORMAL) POCT Glucose (06/09/2021 8:03 AM EDT) Glucose, POC 233(H) 65 - 199 mg/dL [facility] Comment: Supplemental ranges: <140 mg/dL before meals <180 mg/dL all other times of the day Blood 06/09/2021 8:03 AM EDT 06/09/2021 8:03 AM EDT Supa Alegria MD POINT OF CARE TEST O RDERABLES [facility] [place] [address] * (ABNORMAL) Differential, Automated (06/09/2021 5:50 AM EDT) Neutrophil % 56.8 % [facility] LABORATORY Neutrophil Absolute 4.64 1.70 - 6.10 x10(3)/ L [facility]OR[facility] Lymph % 27.0 % [facility] LABORATORY Lymphocytes Abs 2.2 0.9 - 3.2 x10(3)/ L [facility] Monocyte % 8.6 % [facility]OR[facility] Monocyte Abs 0.7 0.3 - 0.9 x10(3)/ L [facility] Eos % 5.6 % [facility] LABORATORY Eosinophils Abs 0.5(H) 0.0 - 0.4 x10(3)/ L [facility] Basophil % 0.9 % [facility] Baso Absolute 0.1 0.0 - 0.1 x10(3)/ L [facility] Immature Gran % 1.10 % [facility] Comment: Immature granulocytes(IG's)percentage and absolute count will include metamyelocytes, myelocytes, and promyelocytes. Blood smears from CBCs yielding IG's will be scanned manually for concordance. If this scan disagrees with the automated IG or if promyelocytes are noted, a manual differential will be performed. Immature Gran Absolute 0.09(H) 0.00 - 0.04 x10(3)/ L [facility] LABORATORY Blood 06/09/2021 5:50 AM EDT 06/09/2021 6:06 AM EDT Narrative Resulting Agency Comment Spec In Lab Isaiah Hoyos MD HEMATOLOGY ORDERABL ES Performing Organization Address City/[facility]/ZIP Co de Phone Number [facility] [place] [address] * Hemogram (06/09/2021 5:50 AM EDT) White Blood Cell 8.2 4.0 - 9.5 x10(3)/[facility] LABORATORY Red Blood Cell 4.87 4.58 - 5.54 x10(6)/[facility] LABORATORY Hemoglobin 14.1 13.7 - 16.5 g/dL [facility] Hematocrit 42.0 40.5 - 48.5 % [facility] Mean Cell Volume 86.2 82.9 - 93.1 [facility] LABORATORY Mean Cell Hemoglobin 29.0 27.5 - 32.1 [facility] LABORATORY Mean Cell Hemoglobin Concentration 33.6 32.0 - 35.7 g/dL [facility] Platelet 240 145 - 357 x10(3)/[facility] LABORATORY RDW Standard Deviation 40.7 36.0 - 45.0 [facility] LABORATORY RDW coefficient of variation 12.9 11.4 - 13.8 % [facility] Mean Platelet Volume 10.9 7.6 - 12.9 [facility] LABORATORY NRBC% auto 0.0 % [facility] LABORATORY NRBC Absolute 0.000 0.000 - 0.000 x10(3)/[facility] LABORATORY Blood 06/09/2021 5:50 AM EDT 06/09/2021 6:06 AM EDT Narrative Resulting Agency Comment Spec In Lab Isaiah Hoyos MD HEMATOLOGY ORDERABL ES Performing Organization Address City/[facility]/ZIP Co de Phone Number [facility] [place] [address] * Troponin (06/09/2021 5:50 AM EDT) Pathologist [facility] Troponin-T <0.01 0.00 - 0.00 ng/mL [facility] Comment: The 99th percentile for Troponin T is less than 0.01 ng/mL, any detectable cTnT concentration using this assay should be considered elevated. According to the third universal definition of myocardial infarction the following criteria with a clinical presentation consistent with acute myocardial ischemia meets the diagnosis for a myocardial infarction (CT). Detection of a rise and/or fall of cTnT, with at least one value greater than the 99th percentile (> or = 0.01) and with at least one of the following ?? Symptoms of ischemia ?? New or presumed new significant FE-zjwabus-G wave (ST-T) changes or new left bundle [...] additional sample may be indicated. Reference: Third [place] Definition of Myocardial Infarction. Journal of the [place] [employer] 2012;60:1581-98 Blood 06/09/2021 5:50 AM EDT 06/09/2021 6:05 AM EDT Narrative Resulting Agency Comment Spec In Lab Isaiah Hoyos MD CHEMISTRY ORDERABLE S [facility] [place] [address] * Heparin (unfractionated) Level (06/09/2021 5:50 AM EDT) Pathologist [facility] UF Heparin 0.31 IU/mL [facility] Comment: Guidelines for therapeutic unfractionated [...] MD HEMATOLOGY ORDERABL ES Performing Organization Address [facility] de Phone Number [facility] [place] [address] * Blood culture (06/09/2021 5:50 AM EDT) Blood Culture No growth at 5 days. [facility] Blood ANTECUBITAL REGION STRUCTURE / Unknown 06/09/2021 5:50 AM EDT 06/09/2021 10:08 AM EDT Comment:#1 Narrative Resulting Agency Comment Spec In Lab Isaiah Hoyos MD MICROBIOLOGY - BLOO D ORDERABLES Performing Organization Address [facility] de Phone Number [facility] [place] [address] * Lipid Panel (Reflex Direct LDL) (06/09/2021 5:50 AM EDT) Cholesterol, Total 207 mg/dL [facility] Comment: Lower Risk: <200 mg/dL Average Risk: 200-239 mg/dL Higher Risk: >hb=968 mg/dL Triglyceride 235 mg/dL [facility] Comment: Average Risk/Lower Risk: <150 mg/dL Borderline High Risk: 150-199 mg/dL High Risk: 200-499 mg/dL Very High Risk: >jj=967 mg/dL HDL Cholesterol 29 mg/dL [facility] Comment: Males: ?? Higher Risk: <40 mg/dL Females: ?? Higher Risk: <50 mg/dL LDL Cholesterol 131 mg/dL [facility] Comment: Lowest Risk: <100 mg/dL Lower Risk: 100-129 mg/dL Borderline High Risk: 130-159 mg/dL High Risk: 160-189 mg/dL Very High Risk: >ak=951 mg/dL Cholesterol/HDL Ratio 7.1 ratio [facility] Lipid Interpretation See Note [facility] Comment: Lipid management should be guided by a patient? s ASCVD risk, goals and preferences. ACC/AHA Guidelines recommend high intensity statin if clinical ASCVD or LDL greater than or equal to 190 mg/dL. http://Capical.com/OXK-END-Ccaksgewa Adults aged 40-75 with LDL 70-189 mg/dL should have their 10 year ASCVD risk estimated with the ACC/AHA ASCVD risk extruding press operator http://tools.acc.org/UYBKP-Wkse-Pjscaguek/ Statin should be discussed if risk greater [...] Lab Isaiah Hoyos MD CHEMISTRY ORDERABLE S [facility] [place] [address] * COVID-19 PCR (06/09/2021 5:45 AM EDT) SARS-CoV-2 RNA (Rapid) Not Detected Not Detected [facility] Comment: This result should be [...] using the Simplexa COVID-19 Direct Assay by [employer] as authorized by the FDA issued Emergency [...] Department of Pathology and Laboratory Medicine at [facility], certified under the Clinical Laboratory Improvement [...] fact sheets at the following FDA website: https://www.fda.gov/medical-devices/qclkkpxyidz-itctbdr-7846-efbja-89-ypnssxrvj- use-a fqtvpiiqcpjou-pddsnfy-bmqenjh/qdryt-xzcwwpuscua-xoil SARS-CoV-2 Source MARINE INSULATOR Swab [facility] LABORATORY Nasopharyngeal Swab 06/09/20 5:45 AM EDT 06/10/2021 6:15 AM EDT Comment:Symptoms->Surveillan ce Narrative Resulting Agency Comment Spec In Lab Isaiah Hoyos MD MICROBIOLOGY - GENE RAL ORDERABLES Performing Organization Address [facility]/ZIP Co de Phone Number [facility] [place] [address] * (ABNORMAL) POCT Glucose (06/09/2021 4:20 AM EDT) Glucose, POC 224(H) 65 - 199 mg/dL [facility] Comment: Supplemental ranges: <140 mg/dL before meals <180 mg/dL all other times of the day Blood 06/09/2021 4:20 AM EDT 06/09/2021 4:20 AM EDT Supa Alegria MD POINT OF CARE TEST O RDERABLES Performing Organization Address [facility] Co de Phone Number [facility] [place] [address] * (ABNORMAL) POCT Glucose (06/09/2021 12:35 AM EDT) Glucose, POC 346(H) 65 - 199 mg/dL [facility] Comment: Supplemental ranges: <140 mg/dL before meals <180 mg/dL all other times of the day Blood 06/09/2021 12:3 5 AM EDT 06/09/2021 12:35 AM EDT Zuleyka Hodgson MD POINT OF CARE T EST ORDERABLES Performing Organization Address City/[facility]/ZIP Co de Phone Number [facility] [place] [address] * Heparin (unfractionated) Level (2021 10:41 PM EDT) [facility] UF Heparin 0.26 IU/mL [facility] Comment: Guidelines for therapeutic unfractionated [...] Lab Isaiah Hoyos MD HEMATOLOGY ORDERABL ES [facility] [place] [address] * EKG 12 Lead (2021 8:46 PM EDT) [facility] Ventricular rate 69 BPM MUSE SYSTEM Atrial Rate 69 BPM MUSE SYSTEM P-R Interval 148 ms MUSE SYSTEM QRS Duration 84 ms MUSE SYSTEM Q-T Interval 384 ms MUSE SYSTEM QTC Calculated (Bezet) 411 ms MUSE SYSTEM Calculated P [place] 39 degrees MUSE SYSTEM Calculated R [place] 14 degrees MUSE SYSTEM Calculated T [place] 21 degrees MUSE SYSTEM INTERPRETATION Normal sinus [...] Blood Culture No growth at 5 days. [facility] Blood 2021 8:26 PM EDT 2021 8:57 PM EDT Narrative Resulting Agency Comment Spec In Lab Isaiah Hoyos MD MICROBIOLOGY - BLOO D ORDERABLES Performing Organization Address City/[facility] Co de Phone Number [facility] [place] [address] * Troponin (2021 7:31 PM EDT) Troponin-T <0.01 0.00 - 0.00 ng/mL [facility] Comment: The 99th percentile for Troponin T is less than 0.01 ng/mL, any detectable cTnT concentration using this assay should be considered elevated. According to the third universal definition of myocardial infarction the following criteria with a clinical presentation consistent with acute myocardial ischemia meets the diagnosis for a myocardial infarction (CT). Detection of a rise and/or fall of cTnT, with at least one value greater than the 99th percentile (> or = 0.01) and with at least one of the following ?? Symptoms of ischemia ?? New or presumed new significant KW-huwtntk-S wave (ST-T) changes or new left bundle [...] additional sample may be indicated. Reference: Third [place] Definition of Myocardial Infarction. Journal of the [place] [employer] 2012;60:1581-98 Blood 2021 7:31 PM EDT 2021 7:37 PM EDT Narrative Resulting Agency Comment Spec In Lab Isaiah Hoyos MD CHEMISTRY ORDERABLE S [facility] [place] [address] * (ABNORMAL) Differential, Automated (2021 7:31 PM EDT) Neutrophil % 53.6 % [facility] Neutrophil Absolute 4.36 1.70 - 6.10 x10(3)/mc L [facility] Lymph % 28.5 % [facility] Lymphocytes Abs 2.3 0.9 - 3.2 x10(3)/mc L [facility] Monocyte % 10.8 % [facility] Monocyte Abs 0.9 0.3 - 0.9 x10(3)/mc L [facility] Eos % 5.4 % [facility] Eosinophils Abs 0.4 0.0 - 0.4 x10(3)/mc L [facility] Basophil % 1.0 % [facility] Baso Absolute 0.1 0.0 - 0.1 x10(3)/mc L [facility] Immature Gran % 0.70 % [facility] Comment: Immature granulocytes(IG's)percentage and absolute count will include metamyelocytes, myelocytes, and promyelocytes. Blood smears from CBCs yielding IG's will be scanned manually for concordance. If this scan disagrees with the automated IG or if promyelocytes are noted, a manual differential will be performed. Immature Gran Absolute 0.06(H) 0.00 - 0.04 x10(3)/mc L [facility] Blood 2021 7:31 PM EDT 2021 7:37 PM EDT Narrative Resulting Agency Comment Spec In Lab Isaiah Hoyos MD HEMATOLOGY ORDERABL ES Performing Organization Address City/[facility]/ZIP Co de Phone Number [facility] [place] [address] * (ABNORMAL) Hemogram (2021 7:31 PM EDT) White Blood Cell 8.1 4.0 - 9.5 x10(3)/mc L [facility] Red Blood Cell 4.65 4.58 - 5.54 x10(6)/mc L [facility] Hemoglobin 13.5(L) 13.7 - 16.5 g/dL [facility] Hematocrit 39.4(L) 40.5 - 48.5 % [facility] Mean Cell Volume 84.7 82.9 - 93.1 fL [facility] Mean Cell Hemoglobin 29.0 27.5 - 32.1 pg [facility] Mean Cell Hemoglobin Concentration 34.3 32.0 - 35.7 g/dL [facility] Platelet 219 145 - 357 x10(3)/ L [facility] RDW Standard Deviation 39.9 36.0 - 45.0 [facility] LABORATORY RDW coefficient of variation 13.1 11.4 - 13.8 % [facility] Mean Platelet Volume 10.5 7.6 - 12.9 [facility] LABORATORY NRBC% auto 0.0 % [facility] NRBC Absolute 0.000 0.000 - 0.000 x10(3)/ L [facility] Blood 2021 7:31 PM EDT 2021 7:37 PM EDT Narrative Resulting Agency Comment Spec In Lab Isaiah Hoyos MD HEMATOLOGY ORDERABL ES [facility] [place] [address] * (ABNORMAL) Basic Metabolic Panel (non-fasting) (2021 7:31 PM EDT) Glucose 244(H) 65 - 199 mg/dL [facility] Comment:Diabetes: >=200 mg/d L plus symptoms Blood Urea Nitrogen 12 10 - 20 mg/dL [facility] Creatinine 0.73(L) 0.80 - 1.50 mg/dL [facility] Sodium 133(L) 135 - 145 mmol/L [facility] Potassium 4.0 3.5 - 5.0 mmol/L [facility] Comment: Please note: ??Patients with WBC >100,000 may have falsely elevated Potassium levels. ??For accurate Potassium quantification in these patients send serum separator tube (gold top) for subsequent determinations. ??Contact the Clinical Chemistry Laboratory if there are any questions. Chloride 100 98 - 107 mmol/L [facility] Carbon Dioxide 22 22 - 31 mmol/L [facility] Anion Gap 11 5 - 15 mmol/L [facility] Calcium 9.3 8.5 - 10.5 mg/dL [facility] Est Glomerular Filtration Rate 105 >=60 mL/min/1. 73 m?? [facility] Comment: This patient? s estimated [...] Lab Isaiah Hoyos MD CHEMISTRY ORDERABLE S [facility] [place] [place] [address] documented in this encounter Visit Diagnoses Diagnosis Unstable angina- Primary Intermediate coronary syndrome Chest pain, unspecified type Smoker Tobacco use disorder CAD (coronary artery disease) Coronary atherosclerosis of unspecified type of vessel, makah or graft Chest pain Chest pain, unspecified [...] Provider: Fabienne Morelos RN)1727 (Given - Provider: Faibenne Morelos RN) insulin lispro (HumaLOG;Admelog) (100 unit/mL) [...] - Provider: Admin Adt)1238 (Given - Provider: Fabinene Morelos RN) insulin lispro (HumaLOG;Admelog) (100 unit/mL) [...] 0538 (Given - Provider: Emily Olmedo RN)1041 ([facility] Hold - Provider: Admin Adt - Reason: Transfer to a Procedural area)1224 ([facility] Unhold - Provider: Admin Adt) losartan (Cozaar) tablet 12.5 mg 12.5 mg, Oral, DAILY, First dose on 06/09/21 at 0900, Until Discontinued, Routine 0837 (Given - Provider: Fabienne Morelos RN) 0932 (Given - Provider: Fabienne Morelos RN)1041 ([facility] Hold - Provider: Admin Adt - Reason: Transfer to a Procedural area)1224 ([facility] Unhold - Provider: Admin Adt) metoprolol succinate XL (Toprol-XL) tablet 100 mg 100 mg, Oral, DAILY, First dose on 06/09/21 at 0900, Until Discontinued, DO NOT CRUSH OR OPEN, Routine 0837 (Given - Provider: Fabienne Morelos RN) 0932 (Given - Provider: Fabienne Morelos RN)1041 ([facility] Hold - Provider: Admin Adt - Reason: Transfer to a Procedural area)1224 ([facility] Unhold - Provider: Admin Adt) ondansetron [...] Reason: Transfer to a Procedural area)1224 ([facility] Unhold - Provider: Admin Adt) piperacillin-tazobactam [...] RN)0938 (Stopped - Provider: Fabienne Morelos RN)1041 ([facility] Hold - Provider: Admin Adt - Reason: Transfer to a Procedural area)1224 ([facility] Unhold - Provider: Admin Adt)1238 (New Bag - Provider: Fabienne Morelos RN)1638 (Stopped - Provider: Fabienne Morelos RN) pramipexole (Mirapex) tablet 0.5 mg 0.5 mg, Oral, NIGHTLY, First dose on 06/08/21 at 2115, Until Discontinued, Routine 214 (Given - Provider: Arturo Morris RN) 2023 (Given - Provider: Emily Olmedo RN) 1041 ([facility] Hold - Provider: Admin Adt - Reason: Transfer to a Procedural area)1224 ([facility] Unhold - Provider: Admin Adt) ranolazine [...] Reason: Transfer to a Procedural area)1224 ([facility] Unhold - Provider: Admin Adt)1633 (Given [...] 0946 (Given - Provider: Fabienne Morelos RN)104 ([facility] Hold - Provider: Admin Adt - Reason: Transfer to a Procedural area)1224 ([facility] Unhold - Provider: Admin Adt) topiramate (Topamax) tablet 50 mg 50 mg, Oral, NIGHTLY, First dose on 06/08/21 at 2115, Until Discontinued, Routine 214 (Given - Provider: Arturo Morris RN) 202 (Given - Provider: Emily Olmedo RN) 1041 ([facility] Hold - Provider: Admin [...] Reason: Transfer to a Procedural area)1224 ([facility] Unhold - Provider: Admin Adt) Continuous [...] Jose Damon MD - Comment: Contrast in Risk Compliance Analyst) lidocaine (Xylocaine) 1% (10 mg/mL) injection 3 mg 3 mg (0.3 mL), Subcutaneous, ONCE PRN, 1 dose, Starting on 06/08/21 at 1909, Until Thu06/10/21 at 2028, for discomfort with PIV insertion, Routine 1041 ([facility] Hold - Pro vider: Admin Adt - Reason: Transfer to a Procedural area)1224 ([facility] Unhold - Provider: Admin Adt) lidocaine [...] Reason: Transfer to a Procedural area)1224 ([facility] Unhold - Provider: Admin [...] Prov ider: Naye Song RN - Comment: Risk Compliance Analyst Flush Line) verapamiL (Isoptin) (2.5 mg/mL) injection [...] Routine documented in this encounter Care Teams Cloth Napping Supervisor Relationship Specialty Start Date End Date Coni Lim MD [address] [place] [address] PCP - General 07/16/10 documented as of this encounter
--- OUTSIDE RECORDS SUMMARY | 2024-08-22 18:45 | XMS_ITS | Encounter Summary ---
[place] [address] Care Team Providers Care Pan Shaker Name Role Phone Coni Lim MD Primary Care Provider [phone] Reason for Visit * Auth/Cert Specialty Diagnoses / Procedures Referred By Ruby garvin Referred To Contact Diagnoses Unstable angina Chest pain Procedures EMERGENCY IPI Referral ID Status Reason Start Date Expiration Date Visits Re quested Visits Authorized [id number] 1 1 Encounter Details Date Type Department Care Team (Latest Contact Info) Description 06/09/2021 9:25 AM EDT - 06/09/2021 11:59 PM EDT Hospital Encounter [place] [id number] Discharge Disposition: Home Social History Tobacco Use [...] mLs documented in this encounter Care Teams Pan Shaker Relationship Specialty Start Date End Date Coni Lim MD [address] [place] [address] PCP - General 07/16/10 documented as of this encounter
--- OUTSIDE RECORDS SUMMARY | 2024-08-22 18:45 | XMS_ITS | Encounter Summary ---
Author Organization [facility] [place] [address] Care Team Providers Care Commissary Steward Name Role Phone Coni Lim MD Primary Care Provider Encounter Details Date Type Department Care Team (Late st Contact Info) Description 09/28/2019 [place] [address] Keeley Paredes MD Social History Tobacco Use [...] on filedocumented in this encounter Care Teams Commissary Steward Relationship Specialty Start Date End Date Coni Lim MD [address] [place] [address] PCP - General 07/16/10 documented as of this encounter
--- OUTSIDE RECORDS SUMMARY | 2024-08-22 18:45 | XMS_ITS | Encounter Summary ---
[place] [address] Care Team Providers Care Cfo Name Role Phone Coni Lim MD Primary Care Provider [phone] Reason for Visit * Reason Onset Date Comments Procedure 05/24/2020 Encounter Details Date Type Department Care Team (Latest Contact Info) Description 05/24/2020 11:15 AM EDT Procedure [place] [phone] Keeley Paredes MD Conjunctival lesion Social History [...] AM EDT 05/24/2020 11:19 AM EDT Narrative [facility] - 05/24/2020 11:19 AM EDT Specimen requisition ordered. ??Separate Pathology report to follow Keeley Paredes MD PATHOLOGY/CYTOLOGY O RDERABLES [facility] [place] [address] * Surgical Pathology Report (05/24/2020 11:09 AM EDT) Final Diagnosis [id number] ? Location: The signing pathologist has (i) examined the relevant preparation(s) for the specimen(s) and (ii) rendered or confirmed the diagnosis(es). . ?Surgical Pathology DIAGNOSIS A - Eye, right caruncle cystic lesion, biopsy: Dermoid cyst. Electronically signed by: ??Wendy Oneill MD Verified: ??05/30/2020 ?Pathologist Performed at: ??-[facility] Dept. of Pathology, [place], [place] DISCUSSION Multiple deeper levels were examined. SPECIMEN(S) SUBMITTED A - right caruncle cystic lesion, biopsy (1) CLINICAL INFORMATION Right caruncle cystic lesion x1 year, irritating SPECIMEN PROCESSING A - Labeled/Fixativ e: Right eye, formalin. Quantity/Size: Two, 0.2 and 0.4 cm. Tissue Description: Soft, rubbery, yellow-walters tissues. Sections/Proces sing: Submitted en toto ??in 1 cassette labeled A1. ??shb 05/30/2020 3:05 PM EDT [facility] BIOPSY SPECIMEN / Unknown 05/24/2020 11:09 AM EDT 05/24/2020 11:09 AM EDT Keeley Paredes MD PATHOLOGY/CYTOLOGY O RDERABLES [facility] [place] [address] documented in this encounter Visit Diagnoses Diagnosis Conjunctival lesion Unspecified disorder of conjunctiva documented in this encounter Care Teams Cfo Relationship Specialty Start Date End Date Coni Lim MD [address] [place] [address] PCP - General 07/16/10 documented as of this encounter
--- OUTSIDE RECORDS SUMMARY | 2024-08-22 18:45 | XMS_ITS | Encounter Summary ---
Author Organization [facility] Address [facility] [place] [address] Care Team Providers Care Locksmith Name Role Phone Coni Lim MD Primary Care Provider [phone] Reason for Visit * Auth/Cert Specialty Diagnoses / Procedures Referred By Ruby t Referred To Contact Diagnoses ACS (acute coronary syndrome) UNSTABLE ANGINA Referral ID Status Reason Start Date Expiration Date Visits Re quested Visits Authorized [id number] 1 1 Encounter Details Date Type Department Care Team (Latest Contact Info) Description 03/14/2019 12:38 AM EDT - 03/16/2019 3:55 PM EDT Hospital Encounter [place] [id number] Wale Mckeon MD [facility] [place] [address] Unstable angina Discharge Disposition: Home Social History [...] Romeo Coe Patient Age: 53 y.o. Language: Uzbek Race: White Ethnicity: Not nor Admit date: [...] Contact Information: MD Esperanza Solis, KRYSTINA Bush, PRELIMINARY SCHOOL PSYCHOLOGIST [phone] Discharge Diagnoses (Hospital Problems) and Secondary Diagnoses [...] and GERD who was transferred from [facility] with a diagnosis of UAP. ?? He [...] was called. ?? His last admission to [facility] was in Aug 2017 when he presented [...] started on Heparin gtt and transferred to [facility] for cardiac cath. Hospital Course: Undifferentiated Chest Pain - Coronary Vasospasm/Microvessel angina vs Non- Cardiac Chest Pain Romeo Coe is a 53 yo M transferred from [facility] for evaluation of unstable angina. Troponins negative. [...] PF, Split 07/30/2013 ??? Influenza Vaccine (Novel) [id number], Injectable 05/24/2009 ??? Influenza Vaccine w/Preservative, Split [...] appointments: During 8am-5pm Thursday through Thursday call [phone] to speak with a nurse in the cardiology clinic All other times call [phone] and ask to speak to the admissions supervisor interventional technologist. Return to work: Ok to resume, no heavy lifting for one week (nothing over 10 lbs) Driving: No driving for 48 hours after catheterization. Follow up Appointments: PCP Coni Lim MD/Keo Ballard [phone] Your follow up appointment is scheduled for March 25, 2019 at 10 45 am Cardiology- Dr. Lawson - [phone] (First apt at [facility], then you will be seen at [facility] thereafter).Your follow up appointment is scheduled for Saturday April 13, 2019 at 1:15 pm Home oxygen therapy: N/A Arrangements for VNA/home care: none Discharge References/Attachments None Esperanza Collier APRN Cardiovascular Medicine Pager [phone] 03/16/2019 documented in this encounter Discharge Instructions * Discharge Instructions* Esperanza Collier APRN - 03/16/2019 3:00 PM EDT Call your doctor if: Chest pain, shortness of breath, pain or swelling in legs occurs. If you have non-emergent questions between now and the time of your follow up appointments: During 8am-5pm Thursday through Thursday call [phone] to speak with a nurse in the cardiology clinic All other times call [phone] and ask to speak to the admissions supervisor interventional technologist. Return to work: Ok to resume, no heavy lifting for one week (nothing over 10 lbs) Driving: No driving for 48 hours after catheterization. Follow up Appointments: PCP Coni Lim MD/Keo Ballard [phone] Your follow up appointment is scheduled for March 25, 2019 at 10 45 am Cardiology- Dr. 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 I have independently interviewed and examined the patient and reviewed the pertinent diagnostic information. I agree with the principal findings documented above. The assessment and plan were formulated in discussion with me. Ruled out PE with CT today. Ready for discharge on medical therapies. 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 Wale Mckeon MD, [facility], [facility] Staff Lime Supervisor pager [phone] * Wale Mckeon MD - 03/14/2019 9:23 AM EDT Images from the original note were not included. 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 ACS (acute coronary syndrome) Resolved Hospital Problems No resolved problems to display. Interval History: Admitted overnight in the setting of unstable angina. Troponins negative. TTE with preserved EF at 63% and no WMA. Awaiting [facility] today. Review of Systems: Review of [...] Full code Discussed with MD Siri Brar, PRELIMINARY SCHOOL PSYCHOLOGIST Pager [phone] 03/14/2019 Attending Lime Supervisor Addendum: This patient was seen in conjunction [...] regimen today (include vasodilator) Wale Mckeon MD, [facility], [facility] Staff Lime Supervisor pager [phone] documented in this encounter H&P Notes * [...] and GERD who was transferred from [facility] with a diagnosis of UAP. He presented [...] EMS was called. His last admission to [facility] was in Aug 2017 when he presented [...] started on Heparin gtt and transferred to [facility] for cardiac cath. Past Medical History: Past [...] of Onset ??? Myocardial Infarction Father 46 [place], CABG ??? Heart Disease Father ??? Diabetes [...] Lives with and daughter at home in [place], [place]. He is disabled now. He used [...] edema . Pulses palpable, no calf tenderness Neuro/WAREHOUSE HELPER: AAO x 3, No evident deficits Skin/Integumentary: [...] multiple PCIs since 2011. Last Cath at [facility] in Aug 2017 that showed the patency [...] with good effect. Right radial cath site [facility] RN, +pulses, no hematoma present. Pt able to [...] EVALUATION NOTE: OUTCOME SUMMARY: Patient to manager lab today. No interventions. Right radial cath site [...] and GERD who was transferred from [facility] with a diagnosis of UAP Past Medical History: Diagnosis Date ??? Allergy ??? CAD (coronary artery disease), non-obstructive 05/31/2012 ??? Depression ??? DM (diabetes mellitus) 05/31/2012 ??? Dyslipidemia 05/31/2012 ??? GERD (gastroesophageal reflux disease) 05/31/2012 ??? HTN (hypertension) 05/31/2012 ??? Hx-TIA (transient ischemic attack) 06/03/2012 ??? Smoker 05/31/2012 Hospitalizations Within the Past 30 Days: no [facility] admits in last 30 days. Anticipated Length Of Stay (If known): 1-3 days Current Decision-Making Capacity: Patient is A&Ox4 and able to make all medical decisions Advance Care Planning: Full Code Not in EPIC.This author discussed ADs with patient and offered advance directive booklet and forms,patient deferred will discuss with family at a later time. [place] surrogacy law and process of guardianship explained. If AD's have not been completed then Spouse Dasia would be surrogate decision maker per [place] surrogate decision making law. Current Coping/Education/Information Needs: Current coping questions and concerns have been addressed. Current Functional Ability: assist of staff Functional Status Prior to Admission: independent with ADLs, driving, no DME used at baseline. Home Environment: lives in 2 level house, bedroom downstairs, no stairs to enter from outside[address] [place] [phone] Social & Family Supports/Community Resources: lives with spouse and daughter Extended Emergency Contact Information Primary Emergency Contact: Dasia Coe Address: [address] [place] [address] [facility] Relation: Spouse Health/Prescription Coverage: Primary Insurance: MEDICARE Secondary Insurance: N/A Prescription Coverage: Yes Preferred Pharmacy: [phone] [place] [address] [facility] [address] [place] [id number] Other: none Primary Care Provider: Coni Lim MD [phone] Patient/Caregiver Goals of Treatment: return to previous [...] of care planning. Rashmi Simmons, VERO Nurse In File Operator Pager [phone] * Op Note - Lexus Gutiérrez MD - 03/14/2019 10:54 AM EDT [facility] Operative Note Patient Name: Romeo Coe : [id number] MR#: [id number] Case Date: 03/14/2019 Surgeon: Surgeon(s) and Role: * Lexus Gutiérrez MD - Primary * Satnam Leger MD - Fellow Preoperative diagnosis: ?CAD Postoperative diagnosis: No new obstructive lesions from prior cath Procedure(s) (LRB): CARDIAC CATHETERIZATION (N/A) CORONARY ANGIOGRAPHY; W [facility],POSSIBLE PCI (N/A) Access: Radial provided good support for procedure. 6 Fr RRA with TR band in place, good hemostasis. The patient tolerated the procedures smoothly and was transferred from the cardiac catheterization lab to the next level of care in stable condition, without pain. No evident early complications. Results discussed with service klystrom tube tester Dr Mckeon, and with the patient. He did not have family that he preferred we call. He needs to be connected with a referring klystrom tube tester locally (seen at [facility]). A time-out was conducted prior to the [...] had a good night. Arrived from [facility] hospital on Heparin drip. Denied chest pain [...] further details. Ed Simpson MD 03/14/2019 Pager [phone] documented in this encounter Plan of Treatment [...] Electronically signed by: Adithya Hutchison [facility] ([phone]), at 03/16/2019 1:06 PM Narrative 03/16/2019 1:06 [...] Electronically signed by: Adithya Hutchison [facility]([phone]), at 03/16/2019 1:06 PM Esperanza Collier APRN IMG CT ORDERABLES * POCT Glucose (03/16/2019 11:34 AM EDT) Glucose, POC 106 65 - 199 mg/dL [facility] Comment: Supplemental ranges: <140 mg/dL before meals <180 mg/dL all other times of the day Blood specimen (specimen) 03/16/2019 11:34 AM EDT 03/16/2019 11:34 AM EDT Wale Mckeon MD POINT OF CARE TEST O RDERABLES Performing Organization Address City/[facility]/ZIP Co de Phone Number [facility] [place] [place] [address] * POCT Glucose (03/16/2019 7:38 AM EDT) Glucose, POC 102 65 - 199 mg/dL [facility] Comment: Supplemental ranges: <140 mg/dL before meals <180 mg/dL all other times of the day Blood specimen (specimen) 03/16/2019 7:38 AM EDT 03/16/2019 7:38 AM EDT Wale Mckeon MD POINT OF CARE TEST O RDERAAIRAM Performing Organization Address [facility] Co de Phone Number [facility] [place] [place] [address] * EKG 12 Lead (03/16/2019 7:07 AM EDT) Ventricular rate 59 BPM MUSE SYSTEM Atrial Rate 59 BPM MUSE SYSTEM P-R Interval 148 ms MUSE SYSTEM QRS Duration 88 ms MUSE SYSTEM Q-T Interval 408 ms MUSE SYSTEM QTC Calculated (Bezet) 403 ms MUSE SYSTEM Calculated P [place] 7 degrees MUSE SYSTEM Calculated R [place] 23 degrees MUSE SYSTEM Calculated T [place] 40 degrees MUSE SYSTEM INTERPRETATION Sinus bradycardia Otherwise normal ECG When compared with ECG of 15-MAR-2019 20:23, No significant change was found Confirmed by MD SOUMYA, JENNIFER ([id number]) on 03/16/2019 8:30:39 AM MUSE SYSTEM 03/16/2019 7:07 AM EDT 03/16/2019 8:30 AM EDT Siri Bush APRN ECG ORDERABLES Performing Organization Address City/[facility] Co de Phone Number MUSE SYSTEM * Differential, Automated (03/16/2019 5:07 AM EDT) Neutrophil % 48.9 % [facility] Neutrophil Absolute 3.25 1.70 - 6.10 x10(3)/[facility] LABORATORY Lymph % 38.1 % [facility] Lymphocytes Abs 2.5 0.9 - 3.2 x10(3)/[facility] LABORATORY Monocyte % 8.0 % [facility] Monocyte Abs 0.5 0.3 - 0.9 x10(3)/[facility] LABORATORY Eos % 4.2 % [facility] Eosinophils Abs 0.3 0.0 - 0.4 x10(3)/[facility] LABORATORY Basophil % 0.5 % [facility] Baso Absolute 0.0 0.0 - 0.1 x10(3)/[facility] LABORATORY Immature Gran % 0.30 % [facility] Comment: Immature granulocytes(IG's)percentage [...] Lab Siri Bush APRN HEMATOLOGY ORDERAB LES [facility] [place] [place] [address] * Hemogram (03/16/2019 5:07 AM EDT) White Blood Cell 6.6 4.0 - 9.5 x10(3)/[facility] LABORATORY Red Blood Cell 5.33 4.58 - 5.54 x10(6)/[facility] LAB[facility]ATORY Hemoglobin 15.6 13.7 - 16.5 gm/dL [facility] Hematocrit 45.4 40.5 - 48.5 % [facility] Mean Cell Volume 85.2 82.9 - 93.1 fL [facility] Mean Cell Hemoglobin 29.3 27.5 - 32.1 pg [facility] Mean Cell Hemoglobin Concentration 34.4 32.0 - 35.7 gm/dL [facility] Platelet 154 145 - 357 x10(3)/[facility] LABORATORY RDW Standard Deviation 38.3 36.0 - 45.0 [facility]ATORY RDW coefficient of variation 12.5 11.4 - 13.8 % [facility] Mean Platelet Volume 10.9 7.6 - 12.9 [facility] LABORATORY NRBC% auto 0.0 % [facility] NRBC Absolute 0.000 0.000 - 0.000 x10(3)/[facility] LABORATORY Blood specimen (specimen) 03/16/2019 5:07 AM EDT 03/16/2019 5:24 AM EDT Narrative Resulting Agency Comment Spec In Lab Siri Bush APRN HEMATOLOGY ORDERAB LES [facility] [place] [place] [address] * (ABNORMAL) BMP w/fasting Glucose (03/16/2019 5:07 AM EDT) Glucose Fasting 119(H) 65 - 99 mg/dL [facility] [...] - 20 mg/dL [facility] Creatinine 0.91 0.80 - 1.50 mg/dL [facility] Sodium 138 135 - 145 mmol/L [facility] Potassium 3.6 3.5 - 5.0 mmol/L [facility] [...] 31 mmol/L [facility] Anion Gap 12 5 - 15 mmol/L [facility] Calcium 9.2 8.5 - 10.5 mg/dL [facility] Est Glomerular Filtration Rate 97 >=60 mL/min/1. 73 m?? [facility] Comment: The eGFR was calculated using the CKD-EPI equation. As with all creatinine based estimates of kidney function, eGFR values calculated with the CKD-EPI equation are not accurate in patients with acute kidney failure, extremes of body mass or the acutely ill. http://[employer]/DHMCnkf eGFR 113 >=60 mL/min/1. 73 m?? [facility] Comment: The eGFR was calculated using the CKD-EPI equation. As with all creatinine based estimates of kidney function, eGFR values calculated with the CKD-EPI equation are not accurate in patients with acute kidney failure, extremes of body mass or the acutely ill. http://[employer]/DHMCnkf Blood specimen (specimen) 03/16/2019 5:07 AM EDT 03/16/2019 5:24 AM EDT Narrative Resulting Agency Comment Spec In Lab Siri Bush APRN CHEMISTRY ORDERABL ES [facility] [place] [place] [address] * EKG 12 Lead (03/15/2019 8:23 PM EDT) Ventricular rate 65 BPM MUSE SYSTEM Atrial Rate 65 BPM MUSE SYSTEM P-R Interval 140 ms MUSE SYSTEM QRS Duration 86 ms MUSE SYSTEM Q-T Interval 384 ms MUSE SYSTEM QTC Calculated (Bezet) 399 ms MUSE SYSTEM Calculated P [place] 16 degrees MUSE SYSTEM Calculated R [place] 39 degrees MUSE SYSTEM Calculated T [place] 37 degrees MUSE SYSTEM INTERPRETATION Normal sinus rhythm Normal ECG When compared with ECG of 15-MAR-2019 10:49, No significant change was found Confirmed by MD SOUMYA, JENNIFER ([id number]) on 03/16/2019 12:17:34 AM MUSE SYSTEM 03/15/2019 8:23 PM EDT 03/16/2019 12:17 AM EDT Wale Mckeon MD ECG ORDERABLES Performing Organization Address City/[facility]/ZIP Co de Phone Number MUSE SYSTEM * POCT Glucose (03/15/2019 8:13 PM EDT) Glucose, POC 134 65 - 199 mg/dL [facility] Comment: Supplemental ranges: <140 mg/dL before meals <180 mg/dL all other times of the day Blood specimen (specimen) 03/15/2019 8:13 PM EDT 03/15/2019 8:13 PM EDT Wale Mckeon MD POINT OF CARE TEST O RDERABLES [facility] [place] [place] [address] * POCT Glucose (03/15/2019 4:58 PM EDT) Glucose, POC 109 65 - 199 mg/dL [facility] Comment: Supplemental ranges: <140 mg/dL before meals <180 mg/dL all other times of the day Blood specimen (specimen) 03/15/2019 4:58 PM EDT 03/15/2019 4:58 PM EDT Wale Mckeon MD POINT OF CARE TEST O RDEFE Performing Organization Address City/[facility]/ZIP Co de Phone Number [facility] [place] [place] [address] * POCT Glucose (03/15/2019 11:47 AM EDT) [facility] Glucose, POC 110 65 - 199 mg/dL [facility] Comment: Supplemental ranges: <140 mg/dL before meals <180 mg/dL all other times of the day Blood specimen (specimen) 03/15/2019 11:47 AM EDT 03/15/2019 11:47 AM EDT Wale Mckeon MD POINT OF CARE TEST O EVITA Performing Organization Address [facility] Co de Phone Number [facility] [place] [place] [address] * Troponin (03/15/2019 11:17 AM EDT) [facility] Troponin-T <0.01 0.00 - 0.00 ng/mL [facility] Comment: The 99th percentile for Troponin T is less than 0.01 ng/mL, any detectable cTnT concentration using this assay should be considered elevated. According to the third universal definition of myocardial infarction the following criteria with a clinical presentation consistent with acute myocardial ischemia meets the diagnosis for a myocardial infarction (AL). Detection of a rise and/or fall of cTnT, with at least one value greater than the 99th percentile (> or = 0.01) and with at least one of the following ?? Symptoms of ischemia ?? New or presumed new significant TJ-zizzrow-W wave (ST-T) changes or new left bundle [...] additional sample may be indicated. Reference: Third Elmer Definition of Myocardial Infarction. Journal of the [place] [employer] 2012;60:1581-98 Blood specimen (specimen) 03/15/2019 11:17 AM EDT 03/15/2019 11:42 AM EDT Narrative Resulting Agency Comment Spec In Lab Esperanza Collier KRYSTINA CHEMISTRY ORDERABLES Performing Organization Address [facility] Co de Phone Number [facility] [place] [place] [address] * EKG 12 Lead (03/15/2019 10:49 AM EDT) [facility] Ventricular rate 59 BPM MUSE SYSTEM Atrial Rate 59 BPM MUSE SYSTEM P-R Interval 140 ms MUSE SYSTEM QRS Duration 86 ms MUSE SYSTEM Q-T Interval 398 ms MUSE SYSTEM QTC Calculated (Bezet) 394 ms MUSE SYSTEM Calculated P [place] 13 degrees MUSE SYSTEM Calculated R [place] 42 degrees MUSE SYSTEM Calculated T [place] 49 degrees MUSE SYSTEM INTERPRETATION Sinus bradycardia Otherwise normal ECG When compared with ECG of 15-MAR-2019 07:08, No significant change was found Confirmed by MD Buchanan Timothy ([id number]) on 03/15/2019 12:09:31 PM MUSE SYSTEM 03/15/2019 10:4 9 AM EDT 03/15/2019 12:09 PM EDT Esperanza Vicki Collier APRN ECG ORDERABLES Performing Organization Address [facility] de Phone Number MUSE SYSTEM * POCT Glucose (03/15/2019 7:57 AM EDT) [facility] Glucose, POC 114 65 - 199 mg/dL [facility] Comment: Supplemental ranges: <140 mg/dL before meals <180 mg/dL all other times of the day Blood specimen (specimen) 03/15/2019 7:57 AM EDT 03/15/2019 7:57 AM EDT Wale Mckeon MD POINT OF CARE TEST O RDERABLES Performing Organization Address [facility] Co de Phone Number [facility] [place] [place] [address] * EKG 12 Lead (03/15/2019 7:08 AM EDT) Ventricular rate 58 BPM MUSE SYSTEM Atrial Rate 58 BPM MUSE SYSTEM P-R Interval 140 ms MUSE SYSTEM QRS Duration 90 ms MUSE SYSTEM Q-T Interval 410 ms MUSE SYSTEM QTC Calculated (Bezet) 402 ms MUSE SYSTEM Calculated P [place] 5 degrees MUSE SYSTEM Calculated R [place] 24 degrees MUSE SYSTEM Calculated T [place] 34 degrees MUSE SYSTEM INTERPRETATION Sinus bradycardia Otherwise normal ECG When compared with ECG of 14-MAR-2019 19:41, No significant change was found Confirmed by MD SOUMYA, JENNIFER ([id number]) on 03/15/2019 9:53:01 AM MUSE SYSTEM 03/15/2019 7:08 AM EDT 03/15/2019 9:53 AM EDT Siri Panchal Mize KRYSTINA ECG ORDERABLES MUSE SYSTEM * Differential, Automated (03/15/2019 5:01 AM EDT) Pathologist [facility] Neutrophil % 46.9 % [facility] Neutrophil Absolute 2.78 1.70 - 6.10 x10(3)/[facility] LABORATORY Lymph % 40.6 % [facility] Lymphocytes Abs 2.4 0.9 - 3.2 x10(3)/[facility] LABORATORY Monocyte % 7.7 % [facility] Monocyte Abs 0.5 0.3 - 0.9 x10(3)/[facility] LABORATORY Eos % 3.7 % [facility] Eosinophils Abs 0.2 0.0 - 0.4 x10(3)/[facility] LABORATORY Basophil % 0.8 % [facility] Baso Absolute 0.0 0.0 - 0.1 x10(3)/[facility] LABORATORY Immature Gran % 0.30 % [facility] Comment: Immature granulocytes(IG's)percentage [...] Agency Comment Spec In Lab Siri Bush PRELIMINARY SCHOOL PSYCHOLOGIST HEMATOLOGY ORDERAB LES [facility] [place] [address] * Hemogram (03/15/2019 5:01 AM EDT) White Blood Cell 5.9 4.0 - 9.5 x10(3)/[facility] LABORATORY Red Blood Cell 4.95 4.58 - 5.54 x10(6)/[facility] LAB[facility]ATORY Hemoglobin 14.6 13.7 - 16.5 gm/dL [facility] Hematocrit 43.1 40.5 - 48.5 % [facility] Mean Cell Volume 87.1 82.9 - 93.1 [facility]AT[facility] Mean Cell Hemoglobin 29.5 27.5 - 32.1 pg [facility] Mean Cell Hemoglobin Concentration 33.9 32.0 - 35.7 gm/dL [facility] Platelet 156 145 - 357 x10(3)/[facility] LABORATORY RDW Standard Deviation 40.2 36.0 - 45.0 [facility] LABORATORY RDW coefficient of variation 12.5 11.4 - 13.8 % [facility] Mean Platelet Volume 10.4 7.6 - 12.9 [facility]ATORY NRBC% auto 0.0 % [facility] NRBC Absolute 0.000 0.000 - 0.000 x10(3)/[facility] LAB[facility] Blood specimen (specimen) 03/15/2019 5:01 AM EDT 03/15/2019 5:12 AM EDT Narrative Resulting Agency Comment Spec In Lab Siri Bush [employer] PSYCHOLOGIST HEMATOLOGY ORDERAB LES [facility] [place] [address] * (ABNORMAL) BMP w/fasting Glucose (03/15/2019 5:01 AM EDT) Glucose Fasting 120(H) 65 - 99 mg/dL [facility] [...] - 20 mg/dL [facility] Creatinine 0.90 0.80 - 1.50 mg/dL [facility] Sodium 142 135 - 145 mmol/L [facility] Potassium 3.8 3.5 - 5.0 mmol/L [facility] Comment: Please note: ??Patients with WBC >100,000 may have falsely elevated Potassium levels. ??For accurate Potassium quantification in these patients send serum separator tube (gold top) for subsequent determinations. ??Contact the Clinical Chemistry Laboratory if there are any questions. Chloride 109(H) 98 - 107 mmol/L [facility] Carbon Dioxide 23 22 - 31 mmol/L [facility] Anion Gap 10 5 - 15 mmol/L [facility] Calcium 9.1 8.5 - 10.5 mg/dL [facility] Est Glomerular Filtration Rate 99 >=60 mL/min/1. 73 m?? [facility] Comment: The eGFR was calculated using the CKD-EPI equation. As with all creatinine based estimates of kidney function, eGFR values calculated with the CKD-EPI equation are not accurate in patients with acute kidney failure, extremes of body mass or the acutely ill. [email or web address]ELnkf eGFR 114 >=60 mL/min/1. 73 m?? [facility] Comment: The eGFR was calculated using the CKD-EPI equation. As with all creatinine based estimates of kidney function, eGFR values calculated with the CKD-EPI equation are not accurate in patients with acute kidney failure, extremes of body mass or the acutely ill. [email or web address]/[facility]nkf Blood specimen (specimen) 03/15/2019 5:01 AM EDT 03/15/2019 5:12 AM EDT Narrative Resulting Agency Comment Spec In Lab Siri Bush APRN CHEMISTRY ORDERABL ES [facility] [place] [address] * (ABNORMAL) Hemoglobin A1c (03/15/2019 5:01 AM EDT) Hemoglobin A1c 6.8(H) 4.3 - 5.6 % [facility] [...] Mellitus, Diabetes Care 2013; 36: Suppl. 1, L37-78 Estimated Average Glucose 148 mg/dL [facility] Comment: eAG equivalents [...] into estimated average glucose values. ??Diabetes Care 2008:31(8):4864-0931. Blood specimen (specimen) 03/15/2019 5:01 AM EDT 03/15/2019 5:12 AM EDT Narrative Resulting Agency Comment Spec In Lab Siri Bush APRN CHEMISTRY ORDERABL ES [facility] [place] [address] * Lipid Panel (03/15/2019 5:01 AM EDT) Cholesterol, Total 207 mg/dL [facility] Comment: Lower Risk: <200 mg/dL Average Risk: 200-239 mg/dL Higher Risk: >wl=444 mg/dL Triglyceride 256 mg/dL [facility] Comment: Average Risk/Lower Risk: <150 mg/dL Borderline High Risk: 150-199 mg/dL High Risk: 200-499 mg/dL Very High Risk: >uz=037 mg/dL HDL Cholesterol 28 mg/dL [facility] Comment: Males: ?? Higher Risk: <40 mg/dL Females: ?? HIgher Risk: <50 mg/dL LDL Cholesterol 128 mg/dL [facility] Comment: Lowest Risk: <100 mg/dL Lower Risk: 100-129 mg/dL Borderline High Risk: 130-159 mg/dL High Risk: 160-189 mg/dL Very High Risk: >bu=372 mg/dL Cholesterol/HDL Ratio 7.4 ratio [facility] Lipid Interpretation See Note [facility] Comment: Lipid management should be guided by a patient? s ASCVD risk, goals and preferences. ACC/AHA Guidelines recommend high intensity statin if clinical ASCVD or LDL greater than or equal to 190 mg/dL. http://[employer].com/LFC-NJN-Ygkemzpmk Adults aged 40-75 with LDL 70-189 mg/dL should have their 10 year ASCVD risk estimated with the ACC/AHA ASCVD risk estimator printing plate making http://tools.acc.org/SEOIW-Pyvz-Ywnemxpdw/ Statin should be discussed if risk greater [...] Lab Siri Bush APRN CHEMISTRY ORDERABL ES [facility] [place] [place] [address] * POCT Glucose (03/14/2019 7:50 PM EDT) Glucose, POC 123 65 - 199 mg/dL [facility] Comment: Supplemental ranges: <140 mg/dL before meals <180 mg/dL all other times of the day Blood specimen (specimen) 03/14/2019 7:50 PM EDT 03/14/2019 7:50 PM EDT Wale Mckeon MD POINT OF CARE TEST O RDERABLES Performing Organization Address [facility] Co de Phone Number [facility] [place] [place] [address] * EKG 12 Lead (03/14/2019 7:41 PM EDT) [facility] Ventricular rate 59 BPM MUSE SYSTEM Atrial Rate 59 BPM MUSE SYSTEM P-R Interval 142 ms MUSE SYSTEM QRS Duration 80 ms MUSE SYSTEM Q-T Interval 396 ms MUSE SYSTEM QTC Calculated (Bezet) 392 ms MUSE SYSTEM Calculated P [place] 40 degrees MUSE SYSTEM Calculated R [place] 37 degrees MUSE SYSTEM Calculated T [place] 46 degrees MUSE SYSTEM INTERPRETATION Sinus bradycardia Otherwise normal ECG When compared with ECG of 14-MAR-2019 01:06, No significant change was found Confirmed by MD SOUMYA, JENNIFER ([id number]) on 03/15/2019 9:52:58 AM MUSE SYSTEM 03/14/2019 7:41 PM EDT 03/15/2019 9:52 AM EDT Wale Mckeon MD ECG ORDERABLES Performing Organization Address [facility] Co de Phone Number MUSE SYSTEM * POCT Glucose (03/14/2019 4:21 PM EDT) [facility] Glucose, POC 128 65 - 199 mg/dL [facility] Comment: Supplemental ranges: <140 mg/dL before meals <180 mg/dL all other times of the day Blood specimen (specimen) 03/14/2019 4:21 PM EDT 03/14/2019 4:21 PM EDT Wale Mckeon MD POINT OF CARE TEST O RDERABLES Performing Organization Address [facility] Co de Phone Number [facility] [place] [address] * Troponin (03/14/2019 3:10 PM EDT) [facility] Troponin-T <0.01 0.00 - 0.00 ng/mL [facility] Comment: The 99th percentile for Troponin T is less than 0.01 ng/mL, any detectable cTnT concentration using this assay should be considered elevated. According to the third universal definition of myocardial infarction the following criteria with a clinical presentation consistent with acute myocardial ischemia meets the diagnosis for a myocardial infarction (AL). Detection of a rise and/or fall of cTnT, with at least one value greater than the 99th percentile (> or = 0.01) and with at least one of the following ?? Symptoms of ischemia ?? New or presumed new significant CE-nsktlsr-S wave (ST-T) changes or new left bundle [...] additional sample may be indicated. Reference: Third Elmer Definition of Myocardial Infarction. Journal of the [place] College [employer] 2012;60:1581-98 Blood specimen (specimen) 03/14/2019 3:10 PM EDT 03/14/2019 3:19 PM EDT Narrative Resulting Agency Comment Spec In Lab Wale Mckeon MD CHEMISTRY ORDERABLES Performing Organization Address City/State/[facility] Co de Phone Number [facility] [place] [address] * XR Chest PA or AP 1 [...] * POCT Glucose (03/14/2019 11:41 AM EDT) [facility] Signature Glucose, POC 96 65 - 199 mg/dL [facility] Comment: Supplemental ranges: <140 mg/dL before meals <180 mg/dL all other times of the day Blood specimen (specimen) 03/14/2019 11:41 AM EDT 03/14/2019 11:41 AM EDT Wale Mckeon MD POINT OF CARE TEST O RDERABLES [facility] [place] [address] * CARDIAC CATHETERIZATION (03/14/2019 10:55 AM EDT) Anatomical Region Laterality Modality Other Narrative 03/15/2019 4:29 PM EDT ?[facility] ? Cardiac Catheterization/Intervention Report ? Patient Name: Ceo, Romeo A. ? Procedure Date: 03/14/2019 ? A #: [id number] ? Primary Physician: Lexus Gutiérrez ? Case #: [id number] ? File Name: [id number] ? Catheterization Order Number: [id number] ? [facility] ? Final [place], [place] ? Patient Name: ? Romeo Coe ? ID#: ?[id number] ? : ?1965 ? Procedure Date: ? [...] was Urgent. The indication for ?the manager lab visit is ACS less than or equal [...] Procedure Note Lexus Gutiérrez MD - 08/13/2019 [facility] Cardiac Catheterization/Intervention Report Patient Name: Romeo Coe Procedure Date: 03/14/2019 A #: [id number] Primary Physician: Lexus Gutiérrez Case #: File Name: [id number] Catheterization Order Number: [id number] [facility] FinalReport [place], [place] Patient Name: Romeo Coe ID#:[id number] :1965 Procedure Date: March 14, 2019 Case [...] patient was designated as ASAClass III. The [facility] clinical frailty scale is 2: Well. Diagnostic Tests: Prior Coronary Angiography: Prior coronary angiography was performed on 09/13/2017 andshowed non-obstructive CAD. LV ejection fraction within 6 months is63%. Electrocardiography: EKG was assessed by ECG. EKG was Normal. Medications Prior to Procedure: ASA, Beta Agatha and Statin. Indications for Diagnostic Cath: The priority of the diagnostic procedure was Urgent. The indicationfor the manager lab visit is ACS less than or equal [...] EDT) Troponin-T <0.01 0.00 - 0.00 ng/mL [facility] Comment: The 99th percentile for Troponin T is less than 0.01 ng/mL, any detectable cTnT concentration using this assay should be considered elevated. According to the third universal definition of myocardial infarction the following criteria with a clinical presentation consistent with acute myocardial ischemia meets the diagnosis for a myocardial infarction (AL). Detection of a rise and/or fall of cTnT, with at least one value greater than the 99th percentile (> or = 0.01) and with at least one of the following ?? Symptoms of ischemia ?? New or presumed new significant PD-lanrixr-U wave (ST-T) changes or new left bundle [...] additional sample may be indicated. Reference: Third Elmer Definition of Myocardial Infarction. Journal of the [place] College of Cardiology 2012;60:1581-98 Blood specimen (specimen) 03/14/2019 8:53 AM EDT 03/14/2019 9:06 AM EDT Narrative Resulting Agency Comment Spec In Lab Wale Mckeon MD CHEMISTRY ORDERABLES [facility] [place] [place] [address] * (ABNORMAL) Differential, Automated (03/14/2019 8:53 AM EDT) Neutrophil % 33.7 % [facility] Neutrophil Absolute 2.11 1.70 - 6.10 x10(3)/ L [facility] Lymph % 52.4 % [facility] Lymphocytes Abs 3.3(H) 0.9 - 3.2 x10(3)/[facility] LABORATORY Monocyte % 7.6 % [facility] Monocyte Abs 0.5 0.3 - 0.9 x10(3)/ L [facility] Eos % 4.9 % [facility] Eosinophils Abs 0.3 0.0 - 0.4 x10(3)/[facility] LABORATORY Basophil % 1.1 % [facility] Baso Absolute 0.1 0.0 - 0.1 x10(3)/ L [facility] Immature Gran % 0.30 % [facility] Comment: Immature granulocytes(IG's)percentage and absolute count will include metamyelocytes, myelocytes, and promyelocytes. Blood smears from CBCs yielding IG's will be scanned manually for concordance. If this scan disagrees with the automated IG or if promyelocytes are noted, a manual differential will be performed. Immature Gran Absolute 0.02 0.00 - 0.04 x10(3)/mc L [facility] Blood specimen (specimen) 03/14/2019 8:53 AM EDT 03/14/2019 9:06 AM EDT Narrative Resulting Agency Comment Spec In Lab Ed Simpson MD HEMATOLOGY ORDERABLE S [facility] [place] [place] [address] * Hemogram (03/14/2019 8:53 AM EDT) White Blood Cell 6.3 4.0 - 9.5 x10(3)/[facility] LABORATORY Red Blood Cell 5.11 4.58 - 5.54 x10(6)/[facility] LABORATORY Hemoglobin 14.9 13.7 - 16.5 gm/dL [facility] Hematocrit 44.2 40.5 - 48.5 % [facility] Mean Cell Volume 86.5 82.9 - 93.1 [facility]AT[facility] Mean Cell Hemoglobin 29.2 27.5 - 32.1 pg [facility] Mean Cell Hemoglobin Concentration 33.7 32.0 - 35.7 gm/dL [facility] Platelet 156 145 - 357 x10(3)/[facility] LABORATORY RDW Standard Deviation 40.3 36.0 - 45.0 [facility]ATORY RDW coefficient of variation 12.6 11.4 - 13.8 % [facility] Mean Platelet Volume 10.7 7.6 - 12.9 [facility] LABORATORY NRBC% auto 0.0 % [facility] NRBC Absolute 0.000 0.000 - 0.000 x10(3)/[facility] LAB[facility]ATORY Blood specimen (specimen) 03/14/2019 8:53 AM EDT 03/14/2019 9:06 AM EDT Narrative Resulting Agency Comment Spec In Lab Ed Simpson MD HEMATOLOGY ORDERABLE S [facility] [place] [place] [address] * Heparin (unfractionated) Level (03/14/2019 8:53 AM EDT) Pathologist [facility] UF Heparin 0.37 IU/mL [facility] Comment: Guidelines for therapeutic unfractionated [...] ORDERABLE S Performing Organization Address [facility] Co de Phone Number [facility] [place] [address] * ECHO COMPLETE (03/14/2019 8:37 AM EDT) [facility] EF 63 HEARTLAB SYSTEM Anatomical Region Laterality Modality Other 03/14/2019 Narrative 03/14/2019 8:45 AM EDT Procedure: ?Transthoracic Echocardiogram Patient: ?LAQUITA Pop ? (Age): 1965(53y) Med Rec#: ? [id number] ?Sex: ?M ? Site Loc: ? [facility] ?Ht / Wt: ??177(cm)/101(kg) Pt. Loc: ?Adult Floor ? BSA: ?2.18 Study Date: ?? 03/14/2019 ?Pt. Type: Inpatient Tape: ? Referring: Ed Simpson Reading: Christos Buchanan ([id number]) Implementation Lead: Yessi Webb [facility] Diagnosis: *Unstable angina (I20.0) BP: ? [...] E-wave Vmax ?0.6 ?m/sec ? MV deceleration vaek050.5 ?msec ? MV A-wave Vmax ?0.4 ?m/sec [...] ? Mid-Inferior ?Normal ? Mid-Inferoseptal ?Normal ? [place]-Septal ? Normal ? [place]-Anterior ? Normal ? [place]-Lateral ?Normal ? [place]-Inferior ? Normal ? [place]-Tip ?Normal ? This report has been electronically signed by: Christos Buchanan M.D. ? 03/14/2019 08:45:08 Images reviewed and interpretation verified [facility] Cardiac Ultrasound Laboratory Procedure Note Christos Buchanan MD - 03/14/2019 Procedure: Transthoracic Echocardiogram Patient: LAQUITA Pop (Age): 1965(53y) Med Rec#: [id number] Sex: M Site Loc: [facility] Ht / Wt: 177(cm)/101(kg) Pt. Loc: Adult Floor BSA: 2.18 Study Date: 03/14/2019 Pt. Type: Inpatient Tape: Referring: Ed Simpson Reading: Christos Buchanan ([id number]) Implementation Lead: Yessi Webb [facility] Diagnosis: *Unstable angina (I20.0) BP: 104/58 [...] MV E-wave Vmax 0.6 m/sec MV deceleration rabw164.5 msec MV A-wave Vmax 0.4 m/sec MV [...] Normal Mid-Posterolateral Normal Mid-Inferior Normal Mid-Inferoseptal Normal [place]-Septal Normal [place]-Anterior Normal [place]-Lateral Normal [place]-Inferior Normal [place]-Tip Normal This report has been electronically signed by: Christos Buchanan M.D. 03/14/2019 08:45:08 Images reviewed and interpretation verified [facility] Cardiac Ultrasound Laboratory Ed Simpson MD [...] O RDERABLES Performing Organization Address [facility] Co de Phone Number [facility] [place] [address] * (ABNORMAL) Chloride (03/14/2019 3:28 AM EDT) Chloride 108(H) 98 - 107 mmol/L [facility] Blood specimen (specimen) 03/14/2019 3:28 AM EDT 03/14/2019 3:32 AM EDT Narrative Resulting Agency Comment Spec In Lab Wale Mckeon MD CHEMISTRY ORDERABLES Performing Organization Address [facility] Co de Phone Number [facility] [place] [address] * Troponin (03/14/2019 3:28 AM EDT) Pathologist [facility] Troponin-T <0.01 0.00 - 0.00 ng/mL [facility] Comment: The 99th percentile for Troponin T is less than 0.01 ng/mL, any detectable cTnT concentration using this assay should be considered elevated. According to the third universal definition of myocardial infarction the following criteria with a clinical presentation consistent with acute myocardial ischemia meets the diagnosis for a myocardial infarction (AL). Detection of a rise and/or fall of cTnT, with at least one value greater than the 99th percentile (> or = 0.01) and with at least one of the following ?? Symptoms of ischemia ?? New or presumed new significant JF-bmmhnnj-B wave (ST-T) changes or new left bundle [...] additional sample may be indicated. Reference: Third Elmer Definition of Myocardial Infarction. Journal of the [place] College [employer] 2012;60:1581-98 Blood specimen (specimen) 03/14/2019 3:28 AM EDT 03/14/2019 3:32 AM EDT Narrative Resulting Agency Comment Spec In Lab Wale Mckeon MD CHEMISTRY ORDERABLES Performing Organization Address [facility] Co de Phone Number [facility] [place] [address] * Sodium (03/14/2019 3:28 AM EDT) Sodium 140 135 - 145 mmol/L [facility] Blood specimen (specimen) 03/14/2019 3:28 AM EDT 03/14/2019 3:32 AM EDT Narrative Resulting Agency Comment Spec In Lab Wale Mckeon MD CHEMISTRY ORDERABLES Performing Organization Address [facility] Phone Number [facility] [place] [place] [address] * Potassium (03/14/2019 3:28 AM EDT) Pathologist [facility] [place] Potassium 3.7 3.5 - 5.0 mmol/L [facility] [...] MD CHEMISTRY ORDERABLES Performing Organization Address [facility] de Phone Number [facility] [place] [address] * Heparin (unfractionated) Level (03/14/2019 2:46 AM EDT) UF Heparin 0.57 IU/mL [facility] Comment: Guidelines for therapeutic unfractionated [...] HEMATOLOGY ORDERABLE S Performing Organization Address City/State/[facility] Co de Phone Number [facility] [place] [address] * (ABNORMAL) Differential, Automated (03/14/2019 1:50 AM EDT) Neutrophil % 38.9 % [facility] Neutrophil Absolute 3.10 1.70 - 6.10 x10(3)/mc L [facility] Lymph % 49.6 % [facility] Lymphocytes Abs 4.0(H) 0.9 - 3.2 x10(3)/mc L [facility] Monocyte % 6.3 % [facility] Monocyte Abs 0.5 0.3 - 0.9 x10(3)/mc L [facility] Eos % 4.1 % [facility] Eosinophils Abs 0.3 0.0 - 0.4 x10(3)/mc L [facility] Basophil % 0.8 % [facility] Baso Absolute 0.1 0.0 - 0.1 x10(3)/mc L [facility] Immature Gran % 0.30 % [facility] Comment: Immature granulocytes(IG's)percentage and absolute count will include metamyelocytes, myelocytes, and promyelocytes. Blood smears from CBCs yielding IG's will be scanned manually for concordance. If this scan disagrees with the automated IG or if promyelocytes are noted, a manual differential will be performed. Immature Gran Absolute 0.02 0.00 - 0.04 x10(3)/mc L [facility] Blood specimen (specimen) 03/14/2019 1:50 AM EDT 03/14/2019 2:04 AM EDT Narrative Resulting Agency Comment Spec In Lab Ed Simpson MD HEMATOLOGY ORDERABLE S Performing Organization Address City/State/[facility] Co de Phone Number [facility] [place] [address] * Hemogram (03/14/2019 1:50 AM EDT) White Blood Cell 8.0 4.0 - 9.5 x10(3)/[facility] LABORATORY Red Blood Cell 4.98 4.58 - 5.54 x10(6)/[facility] LABORATORY Hemoglobin 15.0 13.7 - 16.5 gm/dL [facility] Hematocrit 42.4 40.5 - 48.5 % [facility] Mean Cell Volume 85.1 82.9 - 93.1 fL [facility] Mean Cell Hemoglobin 30.1 27.5 - 32.1 pg [facility] Mean Cell Hemoglobin Concentration 35.4 32.0 - 35.7 gm/dL [facility] Platelet 192 145 - 357 x10(3)/[facility] LABORATORY RDW Standard Deviation 39.9 36.0 - 45.0 [facility] LABORATORY RDW coefficient of variation 12.9 11.4 - 13.8 % [facility] Mean Platelet Volume 11.7 7.6 - 12.9 fL [facility] NRBC% auto 0.0 % [facility] NRBC Absolute 0.000 0.000 - 0.000 x10(3)/mcL [facility] Blood specimen (specimen) 03/14/2019 1:50 AM EDT 03/14/2019 2:04 AM EDT Narrative Resulting Agency Comment Spec In Lab Ed Simpson MD HEMATOLOGY ORDERABLE S Performing Organization Address [facility] Co de Phone Number [facility] [address] * pro-Brain Natriuretic Peptide (03/14/2019 1:50 AM EDT) NT-proBNP 12 <=125 pg/mL [facility] Blood specimen (specimen) 03/14/2019 1:50 AM EDT 03/14/2019 2:04 AM EDT Narrative Resulting Agency Comment Spec In Lab Ed Simpson MD CHEMISTRY ORDERABLES Performing Organization Address [facility] Co de Phone Number [facility] [place] [address] * Magnesium (03/14/2019 1:50 AM EDT) Magnesium 0.81 0.69 - 1.07 mmol/L [facility] Blood specimen (specimen) 03/14/2019 1:50 AM EDT 03/14/2019 2:04 AM EDT Narrative Resulting Agency Comment Spec In Lab Ed Simpson MD CHEMISTRY ORDERABLES Performing Organization Address [facility] Co de Phone Number [facility] [place] [address] * (ABNORMAL) BMP w/fasting Glucose (03/14/2019 1:50 AM EDT) Glucose Fasting 110(H) 65 - 99 mg/dL [facility] [...] - 20 mg/dL [facility] Creatinine 1.00 0.80 - 1.50 mg/dL [facility] Sodium Not Perf 135 - 145 [facility] Potassium Not Perf 3.5 - 5.0 [facility] Comment: Called by: [facility], Read back by: Keeley Arias, Date/Time:03/14/19 03:03. Please note: ??Patients with WBC >100,000 may have falsely elevated Potassium levels. ??For accurate Potassium quantification in these patients send serum separator tube (gold top) for subsequent determinations. ??Contact the Clinical Chemistry Laboratory if there are any questions. Chloride Not Perf 98 - 107 [facility] Carbon Dioxide 22 22 - 31 mmol/L [facility] Anion Gap Unable to Calculate 5 - 15 mmol/L [facility] Calcium 8.5 8.5 - 10.5 mg/dL [facility] Est Glomerular Filtration Rate 87 >=60 mL/min/1 .73 m?? [facility] Comment: The eGFR was calculated using the CKD-EPI equation. As with all creatinine based estimates of kidney function, eGFR values calculated with the CKD-EPI equation are not accurate in patients with acute kidney failure, extremes of body mass or the acutely ill. http://[employer]/DHMCnkf eGFR 101 >=60 mL/min/1 .73 m?? [facility] Comment: The eGFR was calculated using the CKD-EPI equation. As with all creatinine based estimates of kidney function, eGFR values calculated with the CKD-EPI equation are not accurate in patients with acute kidney failure, extremes of body mass or the acutely ill. http://[employer]/DHMCnkf Blood specimen (specimen) 03/14/2019 1:50 AM EDT 03/14/2019 2:04 AM EDT Narrative Resulting Agency Comment Spec In Lab Ed Simpson MD CHEMISTRY ORDERABLES Performing Organization Address [facility] Co de Phone Number [facility] [place] [address] * EKG 12 Lead (03/14/2019 1:06 AM EDT) Ventricular rate 63 BPM MUSE SYSTEM Atrial Rate 63 BPM MUSE SYSTEM P-R Interval 146 ms MUSE SYSTEM QRS Duration 84 ms MUSE SYSTEM Q-T Interval 384 ms MUSE SYSTEM QTC Calculated (Bezet) 392 ms MUSE SYSTEM Calculated P [place] 28 degrees MUSE SYSTEM Calculated R [place] 21 degrees MUSE SYSTEM Calculated T [place] 18 degrees MUSE SYSTEM INTERPRETATION Normal sinus rhythm Normal ECG When compared with ECG of 13-SEP-2017 07:49, No significant change was found Confirmed by MD NAZANIN, DEISY ([id number]) on 03/14/2019 9:49:11 AM MUSE SYSTEM 03/14/2019 1:06 AM EDT 03/14/2019 9:49 AM EDT Ed Simpson MD ECG ORDERABLES Performing Organization Address [facility] de Phone Number MUSE SYSTEM documented [...] Routine documented in this encounter Care Teams Locksmith Relationship Specialty Start Date End Date Coni Lim MD [address] [place] [address] PCP - General 07/16/10 documented as of this encounter
--- OUTSIDE RECORDS SUMMARY | 2024-08-22 18:45 | XMS_ITS | Encounter Summary ---
Author Organization [facility] Address [facility] [place] [address] Care Team Providers Care Inventory Manager Name Role Phone Coni Lim MD Primary Care Provider [phone] Encounter Details Date Type Department Care Team (Late st Contact Info) Description 06/07/2021 Telephone Cardiology at [address] [address] Coni Wilson PA [facility] [place] [address] Social History Tobacco Use Types Packs/Day Years [...] Referring Provider: Maria Luisa GROVER Patient Location: [facility] Past Medical History: ASCVD s/p??multiple??JACINDA??PCIs??to [...] the pain. ER provider spoke with local tire fabric inspector (Dr. Gutierrez) who recommended speaking with for transfer for [facility]. Vital Signs: HR 80s, SBP 110s [...] angina. Troponin negative x1. EKG nonischemic. OSH tire fabric inspector recommended transfer for C. Loaded with [...] management. Coni Lew PA-C Cardiovascular Medicine Pager [phone] 06/07/2021 documented in this encounter Plan of Treatment Not on file documented as of this encounter Visit Diagnoses Not on filedocumented in this encounter Care Teams Inventory Manager Relationship Specialty Start Date End Date Coni Lim MD [address] [place] [address] PCP - General 07/16/10 documented as of this encounter
--- OUTSIDE RECORDS SUMMARY | 2024-08-22 18:45 | XMS_ITS | Encounter Summary ---
Author Organization [facility] [place] [address] Care Team Providers Care Tunnel Heading Inspector Name Role Phone Coni Lim MD Primary Care Provider [phone] Encounter Details Date Type Department Care Team (Late st Contact Info) Description 06/07/2020 Telephone [place] [address] Keeley Paredes MD Social History Tobacco Use [...] on filedocumented in this encounter Care Teams Tunnel Heading Inspector Relationship Specialty Start Date End Date Coni Lim MD [address] [place], [place] [address] PCP - General 07/16/10 documented as of this encounter
--- OUTSIDE RECORDS SUMMARY | 2024-08-22 18:46 | XMS_ITS | Encounter Summary ---
Author Organization [facility] [place] [place] [address] Care Team Providers Care Paper Goods Machine Operator Name Role Phone Coni Lim MD Primary Care Provider [phone] Encounter Details Date Type Department Care Team (Late st Contact Info) Description 08/07/2017 Notes Only Cardiology at [address] [phone] Marianne Barker Social History Tobacco Use Types [...] filedocumented in this encounter Care Teams Paper Goods Machine Operator Relationship Specialty Start Date End Date Coni Lim MD [address] [place] [address] PCP - General 07/16/10 documented as of this encounter
--- OUTSIDE RECORDS SUMMARY | 2024-08-22 18:46 | XMS_ITS | Encounter Summary ---
[place] [address] Care Team Providers Care Printing Manager Name Role Phone Coni Lim MD Primary Care Provider [phone] Reason for Visit * Reason Comments Chest Pain * Auth/Cert Specialty Diagnoses / Procedures Referred By Contac t Referred To Contact Diagnoses Unstable angina chest pain Referral ID Status Reason Start Date Expiration Date Visits Re quested Visits Authorized [id number] 1 1 Encounter Details Date Type Department Care Team (Late st Contact Info) Description 09/13/2017 9:25 AM EST - 09/13/2017 11:05 AM EST [place] [id number] Agusto Ball II, MD CARDIAC CATHETERIZATION Social [...] Romeo Coe Patient Age: 52 y.o. Language: Nauruan Race: White Ethnicity: Not nor Admit date: [...] please contact your inpatient physician through the [facility] Network Systems Operator . Issues afterhours and on weekends will be handled by the house fellow on-call. Discharge Diagnoses (Hospital Problems) and Secondary [...] restenosis addressed with LAD stent angioplasty at [facility] in January 2014 (ABSORB Stent) 75% [...] patient to come to the hospital today. Machine Heddle Cleaner is Dr. Vyas. ?? Currently, he watches [...] lightheadedness/presyncopal symptoms. He will follow-up with his tobacco drummer, Dr. Vyas, approximately 1 week as an [...] PF, Split 07/30/2013 ??? Influenza Vaccine (Novel) [id number], Injectable 05/24/2009 ??? Influenza Vaccine w/Preservative, Split [...] Discharge References/Attachments PCI (PERCUTANEOUS CORONARY INTERVENTION): POST-OP (NAMIBIAN) documented in this encounter Discharge Instructions * [...] PCP [address] / [place] [address] 09/22/2017, 10:30 AM Florian Ling MD, Machine Heddle Cleaner [place], [place] Your Inpatient Doctor(s) at [facility]: Christos Buchanan MD Daniel Storms, MD Sean Li, MD Jeffrey R Wunderlich, MD Your Primary Care Provider: Coni Lim MD [address] / [place] [address] For questions regarding this document or issues relating to this hospitalization on the Medical Service, please contact your inpatient physician through the [facility] Network Systems Operator . Issues afterhours and on weekends will be handled by the Hospitalist staff on-call. * Attachments The following attachments cannot be sent through Care Everywhere. * PCI (PERCUTANEOUS CORONARY INTERVENTION): POST-OP (NAMIBIAN) documented in this encounter Medications at Time [...] Pierson MD, PGY-1 Cardiology Service Pager # [phone] * Aida Dietrich MSW - 09/13/2017 2:23 [...] copy of notice made and given to patient/claim representative. Original notice to be scanned into [...] 09/12/2017 5:31 PM EST Patient [facility] via stretcher from ED s/p chest [...] Buchanan MD PCP: Coni Lim MD PCP#: [phone] CC: Chest Pain Patient Active Problem List [...] restenosis addressed with LAD stent angioplasty at [facility] in January 2014 (ABSORB Stent) 75% [...] patient to come to the hospital today. Machine Heddle Cleaner is Dr. Vyas. Currently, he watches his [...] Myocardial Infarction Father 46 [place], CABG ??? Diabetes Mother ??? Hypertension Mother [...] son (age 18 months), daughter 11 in [place], [place]. Takes care of his mother who has dementia and he takes her to dialysis. is disabled. Has grown daughter who is 29 years old. 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 Physical Exam: Vitals: Most Recent Vitals: 09/12/17 [...] restenosis addressed with LAD stent angioplasty at [facility] in January 2014 (ABSORB Stent) 75% [...] two days ago. Patient has contacted his tobacco drummer who advised to presentto the ED. He [...] reviewed the EKG: Sinus Rhythm, rate 82 ID, QRS and QTc within normal limits No [...] Emergency Medicine *This note was dictated with [employer] software. 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 I've been disabled for five years due to Fibromyalgia and Arthritis. Home Environment: Lives with his , Dasia in [place], [place]. Social & Family Supports/Community Resources: , Friends, neighbors Dasia Coe (Spouse) [address] [facility] [phone] (H) [phone] (M) Behavioral Health History: Per pt report, has Anxiety and Depression, (on Cymbalta and Wellbutrin). Substance Use/Abuse: Current every day smoker; 1-5 cigarettes a day. EtOH: None. Illicit Drug Use: Marijuana every day, medical use. Other Pertinent/Service Specific Information: None Health/Prescription Coverage: Primary Insurance: MEDICARE PART A & B Secondary Insurance: MEDICAID [place] Prescription Coverage: Yes, has Silver Script. Preferred Pharmacy: [id number] - [facility] [place] [facility], [place] - [address] [facility] ? [address] [facility] [address] ? Not a 24 hour pharmacy; exact hours not known Other: None Primary Care Provider: Coni Lim MD [phone] Patient/Caregiver Goals of Treatment: To return home and to his normal activities. Potential Needs for Transition of Care: Rehab/SNF: Pt has never been a pt in a rehab setting. Home Health: [facility] in the past (after right [...] transition of care planning. TIMBO Barrett Pager: [phone] * Plan of Care - Keisha Mae [...] Cont to monitor. PLAN MOVING FORWARD: laboratory chemical assistant echo INDIVIDUALIZED FALL PREVENTION INTERVENTIONS: Patient-specific fall [...] 1 month of chest pressure, told by tobacco drummer that if he decided to be seen [...] METABOLIC PANEL Routine 09/14/2017 3:40 AM EST PLATER APPRENTICE SCAN 09/14/2017 12:00 AM EST POCT GLUCOSE Routine 09/13/2017 7:50 PM EST POCT GLUCOSE Routine 09/13/2017 4:58 PM EST ECHO LMTD W/O CONTRAST W LMTD SPEC DOPP COLOR DOPP Routine 09/13/2017 2:44 PM EST Coronary artery disease, angina presence unspecified, unspecified vessel or lesion type, unspecified whether [place] or transplanted heart POCT GLUCOSE Routine 09/13/2017 11:32 AM EST CARDIAC CATHETERIZATION Routine 09/13/19 11:09 AM EST EKG 12-LEAD STAT 09/13/2017 7:49 AM EST Coronary artery disease, angina presence unspecified, unspecified vessel or lesion type, unspecified whether [place] or transplanted heart POCT GLUCOSE Routine 09/13/2017 [...] Routine 09/13/2017 6:32 AM EST CARDIAC ENZYMES ([facility]) STAT 09/13/2017 12:13 AM EST APTT STAT 09/13/2017 12:13 AM EST CARDIAC CATH SCAN 09/13/2017 12: 00 AM EST POCT GLUCOSE Routine 09/12/2017 9:14 PM EST CARDIAC ENZYMES ([facility]) STAT 09/12/2017 6:53 PM EST XR CHEST [...] POCT Glucose (09/14/2017 7:32 AM EST) Pathologist [facility] Glucose, POC 158 65 - 199 mg/dL [facility] Comment: Supplemental ranges: <140 mg/dL before meals <180 mg/dL all other times of the day Blood specimen (specimen) 09/14/2017 7:32 AM EST 09/14/2017 7:32 AM EST Christos Buchanan MD POINT OF CARE TEST O RDERABLES [facility] [place] [address] * Differential, Automated (09/14/2017 3:40 AM EST) [facility] Neutrophil % 51.2 % [facility] Neutrophil Absolute 4.61 1.70 - 6.10 x10(3)/[facility] Lymph % 34.3 % [facility] Lymphocytes Abs 3.1 0.9 - 3.2 x10(3)/[facility] Monocyte % 8.6 % [facility] Monocyte Abs 0.8 0.3 - 0.9 x10(3)/[facility] Eos % 4.6 % [facility] Eosinophils Abs 0.4 0.0 - 0.4 x10(3)/[facility] Basophil % 0.9 % [facility] Baso Absolute 0.1 0.0 - 0.1 x10(3)/[facility] Immature Gran % 0.40 % [facility] Comment: Immature granulocytes(IG's)percentage and absolute count will include metamyelocytes, myelocytes, and promyelocytes. Blood smears from CBCs yielding IG's will be scanned manually for concordance. If this scan disagrees with the automated IG or if promyelocytes are noted, a manual differential will be performed. Immature Gran Absolute 0.04 0.00 - 0.04 x10(3)/[facility] Blood specimen (specimen) 09/14/2017 3:40 AM EST 09/14/2017 4:08 AM EST Narrative Resulting Agency Comment Spec In Lab Christos Buchanan MD HEMATOLOGY ORDERABLE S [facility] [place] [address] * Hemogram (09/14/2017 3:40 AM EST) White Blood Cell 9.0 4.0 - 9.5 x10(3)/[facility] Red Blood Cell 5.28 4.58 - 5.54 x10(6)/[facility] Hemoglobin 15.0 13.7 - 16.5 gm/dL [facility] Hematocrit 45.8 40.5 - 48.5 % [facility] Mean Cell Volume 86.7 82.9 - 93.1 fL [facility] Mean Cell Hemoglobin 28.4 27.5 - 32.1 pg [facility] Mean Cell Hemoglobin Concentration 32.8 32.0 - 35.7 gm/dL [facility] Platelet 188 145 - 357 x10(3)/[facility] RDW Standard Deviation 43.6 36.0 - 45.0 fL [facility] RDW coefficient of variation 13.7 11.4 - 13.8 % [facility] Mean Platelet Volume 10.4 7.6 - 12.9 fL [facility] NRBC% auto 0.0 % [facility] NRBC Absolute 0.000 0.000 - 0.000 x10(3)/[facility] Blood specimen (specimen) 09/14/2017 3:40 AM EST 09/14/2017 4:08 AM EST Narrative Resulting Agency Comment Spec In Lab Christos Buchanan MD HEMATOLOGY ORDERABLE S Performing Organization Address [facility] de Phone Number [facility] [place] [address] * Prothrombin Time (09/14/2017 3:40 AM EST) Prothrombin Time 13.3 11.8 - 14.0 sec [facility] International Normalization Ratio 1.0 0.9 - 1.1 [facility] Comment: An INR <2.0 [...] MD HEMATOLOGY ORDERABLE S Performing Organization Address [facility] Co de Phone Number [facility] [place] [address] * Magnesium (09/14/2017 3:40 AM EST) Magnesium 0.83 0.69 - 1.07 mmol/L [facility] Blood specimen (specimen) 09/14/2017 3:40 AM EST 09/14/2017 4:08 AM EST Narrative Resulting Agency Comment Spec In Lab Christos Buchanan MD CHEMISTRY ORDERABLES Performing Organization Address City/State/[facility] Co de Phone Number [facility] [place] [address] * Basic Metabolic Panel (non-fasting) (09/14/2017 3:40 AM EST) Glucose 108 65 - 199 mg/dL [facility] Comment:Diabetes: >=200 mg/d L plus symptoms Blood Urea Nitrogen 11 10 - 20 mg/dL [facility] Creatinine 1.05 0.80 - 1.50 mg/dL [facility] Sodium 143 135 - 145 mmol/L [facility] Potassium 4.0 3.5 - 5.0 mmol/L [facility] Comment: Please note: ??Patients with WBC >100,000 may have falsely elevated Potassium levels. ??For accurate Potassium quantification in these patients send serum separator tube (gold top) for subsequent determinations. ??Contact the Clinical Chemistry Laboratory if there are any questions. Chloride 106 98 - 107 mmol/L [facility] Carbon Dioxide 22 22 - 31 mmol/L [facility] Anion Gap 15 5 - 15 mmol/L [facility] Calcium 9.2 8.5 - 10.5 mg/dL [facility] Est Glomerular Filtration Rate >60 >=60 [facility] Comment: The reported eGFR should be multiplied by 1.2 for patients. The MDRD is not an appropriate measure of renal function for patients with body mass extremes or in patients with acute kidney failure. [email or web address]/DHnkdep [email or web address]://[employer]/DHMCnkf Blood specimen (specimen) 09/14/2017 3:40 AM EST 09/14/2017 4:08 AM EST Narrative Resulting Agency Comment Spec In Lab Christos Buchanan MD CHEMISTRY ORDERABLES Performing Organization Address [facility] de Phone Number [facility] [place] [address] * SCAN DOC: PLATER APPRENTICE (09/14/2017 12:00 AM EST) Anatomical Region Laterality Modality Other Narrative 09/14/2017 12:00 AM EST Ordered by an unspecified provider. Scanning Provider MEDIA MGR SCAN EXT O RDR/RSLT * POCT Glucose (09/13/2017 7:50 PM EST) Glucose, POC 113 65 - 199 mg/dL [facility] Comment: Supplemental ranges: <140 mg/dL before meals <180 mg/dL all other times of the day Blood specimen (specimen) 09/13/2017 7:50 PM EST 09/13/2017 7:50 PM EST Christos Buchanan MD POINT OF CARE TEST O RDERABLES Performing Organization Address [facility] Phone Number [facility] [place] [address] * POCT Glucose (09/13/2017 4:58 PM EST) Glucose, POC 138 65 - 199 mg/dL [facility] Comment: Supplemental ranges: <140 mg/dL before meals <180 mg/dL all other times of the day Blood specimen (specimen) 09/13/2017 4:58 PM EST 09/13/2017 4:58 PM EST Christos Buchanan MD POINT OF CARE TEST O RDERABLES Performing Organization Address [facility] Co de Phone Number [facility] [place] [address] * ECHO LMTD W/O CONTRAST W LMTD SPEC DOPP COLOR DOPP (09/13/2017 2:44 PM EST) EF 65 [facility] [facility] Anatomical Region Laterality Modality Other 09/13/2017 Narrative 09/13/2017 3:16 PM EST Procedure: ?Transthoracic Echocardiogram Patient: ?LAQUITA Pop ? (Age): 1965(52y) Med Rec#: ? [id number] ?Sex: ?M ? Site Loc: ? [facility] ?Ht / Wt: ??180.3(cm)/101.6 Pt. Loc: ?Adult Floor ? BSA: ?2.21 Study Date: ?? 09/13/2017 ?Pt. Type: Outpatient Tape: ? Referring: Chrsitos Buchanan ([id number]) Reading: Christos Buchanan ([id number]) [employer] Manager: Meaghan Kim Diagnosis: *ICD-10-PCS Atherosclerotic heart disease of [place] coronary artery without angina pectoris (I25.10) BP: [...] E-wave Vmax ?0.6 ?m/sec ? MV deceleration ogxe772.5 ?msec ? MV A-wave Vmax ?0.5 ?m/sec [...] ? Mid-Inferior ?Normal ? Mid-Inferoseptal ?Normal ? Sanders-Septal ? Normal ? Sanders-Anterior ? Normal ? Sanders-Lateral ?Normal ? Sanders-Inferior ? Normal ? Sanders-Tip ?Normal ? This report has been electronically signed by: Christos Buchanan M.D. ? 09/13/2017 15:16:25 Images reviewed and interpretation verified [facility] Cardiac Ultrasound [facility] Procedure Note Christos Buchanan MD - 09/13/2017 Procedure: Transthoracic Echocardiogram Patient: LAQUITA HARRIS(Age): 1965(52y) Med Rec#: [id number] Sex: M Site Loc: [facility] Ht / Wt: 180.3(cm)/101.6 Pt. Loc: Adult Floor BSA: 2.21 Study Date: 09/13/2017 Pt. Type: Outpatient Tape: Referring: Christos Buchanan ([id number]) Reading: Christos Buchanan ([id number]) [employer] Manager: Meaghan Kim Diagnosis: *ICD-10-PCS Atherosclerotic heart disease of [place] coronary artery without angina pectoris (I25.10) BP: [...] MV E-wave Vmax 0.6 m/sec MV deceleration mqfo513.5 msec MV A-wave Vmax 0.5 m/sec MV [...] Normal Mid-Posterolateral Normal Mid-Inferior Normal Mid-Inferoseptal Normal Sanders-Septal Normal Sanders-Anterior Normal Sanders-Lateral Normal Sanders-Inferior Normal Sanders-Tip Normal This report has been electronically signed by: Christos Buchanan M.D. 09/13/2017 15:16:25 Images reviewed and interpretation verified [facility] Christos Buchanan MD ECHO ORDERABLES * POCT Glucose (09/13/2017 11:32 AM EST) Glucose, POC 104 65 - 199 mg/dL [facility] Comment: Supplemental ranges: <140 mg/dL before meals <180 mg/dL all other times of the day Blood specimen (specimen) 09/13/2017 11:32 AM EST 09/13/2017 11:32 AM EST Christos Buchanan MD POINT OF CARE TEST O RDERABLES Performing Organization Address [facility]/State/[facility] Co de Phone Number [facility] [place] [address] * CARDIAC CATHETERIZATION (09/13/2017 11:09 AM EST) Anatomical Region Laterality Modality Other Narrative 09/13/2017 11:33 AM EST ?[facility] ? Cardiac Catheterization/Intervention Report ? Patient Name: Romeo Coe A. ? Procedure Date: 09/13/2017 ? A #: [id number] ? Primary Physician: Menard, Agusto W ? Case #: [id number] ? File Name: [id number] ? Catheterization Order Number: [id number] ? [facility] ? Final Report [place], [place] ? Patient Name: ? Romeo A. Coe ? ID#: ?[id number] ? : ?1965 ? Procedure Date: ? [...] presented with: unstable angina (w/i 60 days). [place] ?Cardiovascular Society angina class was IV. This [...] Note Agusto Ball II, MD - 09/14/2017 [facility] Cardiac Catheterization/Intervention Report Patient Name: Romeo Coe Procedure Date: 09/13/2017 A #: [id number] Primary Physician: Agusto Ball Case #: [id number] File Name: [id number] Catheterization Order Number: [id number] [facility] FinalReport [place], [place] Patient Name: Romeo Coe ID#:[id number] :1965 Procedure Date: September 13, 2017 Case [...] presented with: unstable angina (w/i 60 days). [place] Cardiovascular Society angina class was IV. This [...] (Bezet) 416 ms MUSE SYSTEM Calculated P Ford 5 degrees MUSE SYSTEM Calculated R Ford 23 degrees MUSE SYSTEM Calculated T Ford 28 degrees MUSE SYSTEM INTERPRETATION Normal sinus rhythm Normal ECG When compared with ECG of 12-SEP-2017 12:19, No significant change was found Confirmed by MD Segundo, Panda Leyva ([id number]) on 09/14/2017 9:09:15 AM MUSE SYSTEM 09/13/2017 7:49 AM EST 09/14/2017 9:09 AM EST Christos Buchanan MD ECG ORDERABLES MUSE SYSTEM * POCT Glucose (09/13/2017 7:24 AM EST) Glucose, POC 152 65 - 199 mg/dL [facility] Comment: Supplemental ranges: <140 mg/dL before meals <180 mg/dL all other times of the day Blood specimen (specimen) 09/13/2017 7:24 AM EST 09/13/2017 7:24 AM EST Christos Buchanan MD POINT OF CARE TEST O RDERABLES [facility] [place] [address] * (ABNORMAL) BMP w/fasting Glucose (09/13/2017 6:32 AM EST) Glucose Fasting 157(H) 65 - 99 mg/dL [facility] [...] of Diabetes Mellitus, Position Statement from the [place] [employer]. ??Diabetes Care, Volume 33, Supplement 1, Aug 2009 Blood Urea Nitrogen 11 10 - 20 mg/dL [facility] Creatinine 0.99 0.80 - 1.50 mg/dL [facility] Sodium 142 135 - 145 mmol/L [facility] Potassium 3.7 3.5 - 5.0 mmol/L [facility] Comment: Please note: ??Patients with WBC >100,000 may have falsely elevated Potassium levels. ??For accurate Potassium quantification in these patients send serum separator tube (gold top) for subsequent determinations. ??Contact the Clinical Chemistry Laboratory if there are any questions. Chloride 106 98 - 107 mmol/L [facility] Carbon Dioxide 21(L) 22 - 31 mmol/L [facility] Anion Gap 15 5 - 15 mmol/L [facility] Calcium 9.4 8.5 - 10.5 mg/dL [facility] Est Glomerular Filtration Rate >60 >=60 [facility] Comment: The reported eGFR should be multiplied by 1.2 for patients. The MDRD is not an appropriate measure of renal function for patients with body mass extremes or in patients with acute kidney failure. http://[employer]/DHnkdep [email or web address]://[employer]/DHnkf Blood specimen (specimen) 09/13/2017 6:32 AM EST 09/13/2017 6:41 AM EST Narrative Resulting Agency Comment Spec In Lab Christos Buchanan MD CHEMISTRY ORDERABLES Performing Organization Address [facility] de Phone Number [facility] [place] [address] * (ABNORMAL) APTT (09/13/2017 6:32 AM EST) Partial Thromboplastin Time 113(H) 25 - 35 sec [facility] Comment: The recommended therapeutic [...] MD HEMATOLOGY ORDERABLE S Performing Organization Address [facility] de Phone Number [facility] [place] [address] * Differential, Automated (09/13/2017 6:32 AM EST) Neutrophil % 64.9 % [facility] Neutrophil Absolute 5.94 1.70 - 6.10 x10(3)/[facility] Lymph % 24.7 % [facility] Lymphocytes Abs 2.3 0.9 - 3.2 x10(3)/[facility] Monocyte % 5.3 % [facility] Monocyte Abs 0.5 0.3 - 0.9 x10(3)/[facility] Eos % 4.0 % [facility] Eosinophils Abs 0.4 0.0 - 0.4 x10(3)/[facility] Basophil % 0.7 % [facility] Baso Absolute 0.1 0.0 - 0.1 x10(3)/[facility] Immature Gran % 0.40 % [facility] Comment: Immature granulocytes(IG's)percentage and absolute count will include metamyelocytes, myelocytes, and promyelocytes. Blood smears from CBCs yielding IG's will be scanned manually for concordance. If this scan disagrees with the automated IG or if promyelocytes are noted, a manual differential will be performed. Immature Gran Absolute 0.04 0.00 - 0.04 x10(3)/[facility] Blood specimen (specimen) 09/13/2017 6:32 AM EST 09/13/2017 6:41 AM EST Narrative Resulting Agency Comment Spec In Lab Christos Buchanan MD HEMATOLOGY ORDERABLE S Performing Organization Address City/State/[facility] Co de Phone Number [facility] [place] [address] * Hemogram (09/13/2017 6:32 AM EST) White Blood Cell 9.2 4.0 - 9.5 x10(3)/[facility] Red Blood Cell 5.29 4.58 - 5.54 x10(6)/[facility] Hemoglobin 15.4 13.7 - 16.5 gm/dL [facility] Hematocrit 44.9 40.5 - 48.5 % [facility] Mean Cell Volume 84.9 82.9 - 93.1 fL [facility] Mean Cell Hemoglobin 29.1 27.5 - 32.1 pg [facility] Mean Cell Hemoglobin Concentration 34.3 32.0 - 35.7 gm/dL [facility] Platelet 186 145 - 357 x10(3)/[facility] RDW Standard Deviation 42.9 36.0 - 45.0 [facility] RDW coefficient of variation 13.8 11.4 - 13.8 % [facility] Mean Platelet Volume 10.3 7.6 - 12.9 [facility] NRBC% auto 0.0 % [facility] NRBC Absolute 0.000 0.000 - 0.000 x10(3)/[facility] Blood specimen (specimen) 09/13/2017 6:32 AM EST 09/13/2017 6:41 AM EST Narrative Resulting Agency Comment Spec In Lab Christos Buchanan MD HEMATOLOGY ORDERABLE S Performing Organization Address [facility] Co de Phone Number [facility] [place] [address] * Blood culture (09/13/2017 6:32 AM EST) Blood Culture No growth at 5 days. [facility] Blood specimen (specimen) 09/13/2017 6:32 AM EST 09/13/2017 7:17 AM EST Comment:L FOREARM Narrative Resulting Agency Comment Spec In Lab Christos Buchanan MD MICROBIOLOGY - BLOOD ORDERABLES Performing Organization Address [facility] Phone Number [facility] [place] [address] * Prothrombin Time (09/13/2017 6:32 AM EST) Prothrombin Time 13.8 11.8 - 14.0 sec [facility] International Normalization Ratio 1.1 0.9 - 1.1 [facility] Comment: An INR <2.0 [...] MD HEMATOLOGY ORDERABLE S Performing Organization Address [facility] Co de Phone Number [facility] [place] [address] * Magnesium (09/13/2017 6:32 AM EST) Magnesium 0.84 0.69 - 1.07 mmol/L [facility] Blood specimen (specimen) 09/13/2017 6:32 AM EST 09/13/2017 6:41 AM EST Narrative Resulting Agency Comment Spec In Lab Christos Buchanan MD CHEMISTRY ORDERABLES Performing Organization Address [facility] de Phone Number [facility] [place] [address] * Triglyceride (09/13/2017 6:32 AM EST) Triglyceride 153 <=199 mg/dL [facility] Blood specimen (specimen) 09/13/2017 6:32 AM EST 09/13/2017 6:41 AM EST Narrative Resulting Agency Comment Spec In Lab Christos Buchanan MD CHEMISTRY ORDERABLES Performing Organization Address [facility] de Phone Number [facility] [place] [address] * HDL/Cholesterol Profile (09/13/2017 6:32 AM EST) Cholesterol, Total 162 <=239 mg/dL [facility] HDL Cholesterol 44 >=40 mg/dL [facility] Cholesterol/HDL Ratio 3.7 ratio [facility] Chol/HDL Interpretation See Note [facility] Comment: Lipid management should be guided by a patient? s ASCVD risk, goals and preferences. ACC/AHA Guidelines recommend high intensity statin if clinical ASCVD or LDL greater than or equal to 190 mg/dL. http://Health As We Ageurl.com/NTU-JIB-Szpiyyglq Measure LDL if Total Cholesterol minus HDL Cholesterol is greater than 220 mg/dL. Adults aged 40-75 with LDL 70-189 mg/dL should have their 10 year ASCVD risk estimated with the ACC/AHA ASCVD risk rollway worker http://tools.acc.org/IWGEJ-Pjmj-Sfwcovgfy/ Statin should be discussed if risk greater [...] Buchanan MD CHEMISTRY ORDERABLES Performing Organization Address [facility] Co de Phone Number [facility] [place] [address] * LDL Cholesterol, Direct (09/13/2017 6:32 AM EST) LDL Cholesterol, Direct 102 <=190 mg/dL [facility] Blood specimen (specimen) 09/13/2017 6:32 AM EST 09/13/2017 6:41 AM EST Narrative Resulting Agency Comment Spec In Lab Christos Buchanan MD CHEMISTRY ORDERABLES Performing Organization Address [facility] Co de Phone Number [facility] [place] [address] * (ABNORMAL) Hemoglobin A1c (09/13/2017 6:32 AM EST) Hemoglobin A1c 6.4(H) 4.3 - 5.6 % [facility] [...] Mellitus, Diabetes Care 2013; 36: Suppl. 1, J53-58 Estimated Average Glucose 137 mg/dL [facility] Comment: eAG [...] into estimated average glucose values. ??Diabetes Care 2008:31(8):8991-5891. Blood specimen (specimen) 09/13/2017 6:32 AM EST 09/13/2017 6:41 AM EST Narrative Resulting Agency Comment Spec In Lab Christos Buchanan MD CHEMISTRY ORDERABLES [facility] [place] [address] * pro-Brain Natriuretic Peptide (09/13/2017 6:32 AM EST) NT-proBNP 15 <=125 pg/mL [facility] Blood specimen (specimen) 09/13/2017 6:32 AM EST 09/13/2017 6:41 AM EST Narrative Resulting Agency Comment Spec In Lab Christos Buchanan MD CHEMISTRY ORDERABLES Performing Organization Address [facility] Co de Phone Number [facility] [place] [address] * (ABNORMAL) APTT (09/13/2017 12:13 AM EST) Partial Thromboplastin Time 50(H) 25 - 35 sec [facility] Comment: The recommended therapeutic [...] MD HEMATOLOGY ORDERABLE S Performing Organization Address [facility] Phone Number [facility] [place] [address] * Cardiac Enzymes (LEB/CGP) (09/13/2017 12:13 AM EST) Pathologist [facility] Troponin-T <0.01 0.00 - 0.00 ng/mL [facility] [...] ischemia ?? New or presumed new significant NR-imeibgy-E wave (ST-T) changes or new left bundle [...] additional sample may be indicated. Reference: Third [place] Definition of Myocardial Infarction. Journal of the [place] College [employer] 2012;60:1581-98 Creatine Kinase 55 0 - 200 unit/L [facility] Blood specimen (specimen) 09/13/2017 12:13 AM EST 09/13/2017 12:42 AM EST Narrative Resulting Agency Comment Spec In Lab Christos Buchanan MD CHEMISTRY ORDERABLES Performing Organization Address [facility] Co de Phone Number [facility] [place] [address] * SCAN DOC: CARDIAC CATH (09/13/2017 12:00 AM EST) Anatomical Region Laterality Modality Cardiac Other Narrative 09/13/2017 12:00 AM EST Ordered by an unspecified provider. Scanning Provider MEDIA MGR SCAN EXT O RDR/RSLT * POCT Glucose (09/12/2017 9:14 PM EST) [facility] Glucose, POC 102 65 - 199 mg/dL [facility] Comment: Supplemental ranges: <140 mg/dL before meals <180 mg/dL all other times of the day Blood specimen (specimen) 09/12/2017 9:14 PM EST 09/12/2017 9:14 PM EST Christos Buchanan MD POINT OF CARE TEST O RDERABLES Performing Organization Address [facility] Co de Phone Number [facility] [place] [address] * Cardiac Enzymes (LEB/CGP) (09/12/2017 6:53 PM EST) [facility] Troponin-T <0.01 0.00 - 0.00 ng/mL [facility] [...] ischemia ?? New or presumed new significant PM-lwmxdcv-N wave (ST-T) changes or new left bundle [...] additional sample may be indicated. Reference: Third [place] Definition of Myocardial Infarction. Journal of the [employer] College [employer] Cardiology 2012;60:1581-98 Creatine Kinase 57 0 - 200 unit/L [facility] Blood specimen (specimen) 09/12/2017 6:53 PM EST 09/12/2017 7:02 PM EST Narrative Resulting Agency Comment Spec In Lab Christos Buchanan MD CHEMISTRY ORDERABLES Performing Organization Address City/State/[facility] Co de Phone Number [facility] [place] [address] * XR Chest PA & Lateral (Generic) [...] Prothrombin Time 13.7 11.8 - 14.0 sec [facility] International Normalization Ratio 1.1 0.9 - 1.1 [facility] Comment: An INR <2.0 [...] Lab Alejandro Blair MD HEMATOLOGY ORDERAB LES [facility] [place] [address] * APTT (09/12/2017 1:29 PM EST) Partial Thromboplastin Time 28 25 - 35 sec [facility] Comment: The recommended therapeutic [...] MD HEMATOLOGY ORDERAB LES Performing Organization Address [facility] Co de Phone Number [facility] [place] [address] * pro-Brain Natriuretic Peptide (09/12/2017 1:29 PM EST) NT-proBNP 20 <=125 pg/mL [facility] Blood specimen (specimen) Venous Draw / Unknown 09/12/2017 1:29 PM EST 09/12/2017 1:35 PM EST Narrative Resulting Agency Comment Spec In Lab Alejandro Blair MD CHEMISTRY ORDERABL ES Performing Organization Address [facility] Co de Phone Number [facility] [place] [address] * Gold Tube HOLD (09/12/2017 1:29 PM EST) Gold Hold Sample in lab. [facility] Blood specimen (specimen) Venous Draw / Unknown 09/12/2017 1:29 PM EST 09/12/2017 1:34 PM EST Alejandro Blair MD CHEMISTRY ORDERABL ES Performing Organization Address [facility] Co de Phone Number [facility] [place] [address] * Blue Tube HOLD (09/12/2017 1:29 PM EST) Blue Hold Sample in lab. [facility] Blood specimen (specimen) Venous Draw / Unknown 09/12/2017 1:29 PM EST 09/12/2017 1:34 PM EST Alejandro Blair MD HEMATOLOGY ORDERAB LES Performing Organization Address City/[facility]/ZIP Co de Phone Number [facility] [place] [address] * Differential, Automated (09/12/2017 1:29 PM EST) Neutrophil % 57.0 % [facility] Neutrophil Absolute 5.07 1.70 - 6.10 x10(3)/[facility] Lymph % 29.7 % [facility] Lymphocytes Abs 2.6 0.9 - 3.2 x10(3)/[facility] Monocyte % 7.8 % [facility] Monocyte Abs 0.7 0.3 - 0.9 x10(3)/[facility] Eos % 4.2 % [facility] Eosinophils Abs 0.4 0.0 - 0.4 x10(3)/[facility] Basophil % 0.8 % [facility] Baso Absolute 0.1 0.0 - 0.1 x10(3)/[facility] Immature Gran % 0.50 % [facility] Comment: Immature granulocytes(IG's)percentage and absolute count will include metamyelocytes, myelocytes, and promyelocytes. Blood smears from CBCs yielding IG's will be scanned manually for concordance. If this scan disagrees with the automated IG or if promyelocytes are noted, a manual differential will be performed. Immature Gran Absolute 0.04 0.00 - 0.04 x10(3)/[facility] Blood specimen (specimen) 09/12/2017 1:29 PM EST 09/12/2017 1:34 PM EST Narrative Resulting Agency Comment Spec In Lab Alejandro Blair MD HEMATOLOGY ORDERAB LES Performing Organization Address City/[facility]/ZIP Co de Phone Number [facility] [place] [address] * Hemogram (09/12/2017 1:29 PM EST) Pathologist [facility] White Blood Cell 8.9 4.0 - 9.5 x10(3)/[facility] Red Blood Cell 5.07 4.58 - 5.54 x10(6)/[facility] Hemoglobin 14.8 13.7 - 16.5 gm/dL [facility] Hematocrit 43.3 40.5 - 48.5 % [facility] Mean Cell Volume 85.4 82.9 - 93.1 [facility] Mean Cell Hemoglobin 29.2 27.5 - 32.1 pg [facility] Mean Cell Hemoglobin Concentration 34.2 32.0 - 35.7 gm/dL [facility] Platelet 208 145 - 357 x10(3)/[facility] RDW Standard Deviation 42.5 36.0 - 45.0 [facility] RDW coefficient of variation 13.7 11.4 - 13.8 % [facility] Mean Platelet Volume 10.4 7.6 - 12.9 [facility] NRBC% auto 0.0 % [facility] NRBC Absolute 0.000 0.000 - 0.000 x10(3)/[facility] Blood specimen (specimen) 09/12/2017 1:29 PM EST 09/12/2017 1:34 PM EST Narrative Resulting Agency Comment Spec In Lab Alejandro Blair MD HEMATOLOGY ORDERAB LES [facility] [place] [address] * (ABNORMAL) Basic Metabolic Panel (non-fasting) (09/12/2017 1:29 PM EST) Pathologist [facility] Glucose 113 65 - 199 mg/dL [facility] Comment:Diabetes: >=200 mg/d L plus symptoms Blood Urea Nitrogen 10 10 - 20 mg/dL [facility] Creatinine 0.96 0.80 - 1.50 mg/dL [facility] Sodium 143 135 - 145 mmol/L [facility] Potassium 3.9 3.5 - 5.0 mmol/L [facility] [...] mmol/L [facility] Anion Gap 17(H) 5 - 15 mmol/L [facility] Calcium 9.2 8.5 - 10.5 mg/dL [facility] Est Glomerular Filtration Rate >60 >=60 [facility] Comment: The reported eGFR should be multiplied by 1.2 for patients. The MDRD is not an appropriate measure of renal function for patients with body mass extremes or in patients with acute kidney failure. http://[employer]/DHnkdep http://[employer]/DHMCnkf Blood specimen (specimen) 09/12/2017 1:29 PM EST 09/12/2017 1:34 PM EST Narrative Resulting Agency Comment Spec In Lab lAejandro Blair MD CHEMISTRY ORDERABL ES [facility] [place] [address] * Cardiac Enzymes (LEB/CGP) (09/12/2017 1:29 PM EST) Troponin-T <0.01 0.00 - 0.00 ng/mL [facility] [...] ischemia ?? New or presumed new significant MJ-ssfnhju-K wave (ST-T) changes or new left bundle [...] additional sample may be indicated. Reference: Third [place] Definition of Myocardial Infarction. Journal of the [place] College of Cardiology 2012;60:1581-98 Creatine Kinase 65 0 - 200 unit/L [facility] Blood specimen (specimen) 09/12/2017 1:29 PM EST 09/12/2017 1:34 PM EST Narrative Resulting Agency Comment Spec In Lab Alejandro Blair MD CHEMISTRY ORDERABL ES Performing Organization Address [facility]/ZIP Co de Phone Number [facility] [place] [id number] * EKG 12 Lead (09/12/2017 12:19 PM EST) Ventricular rate 82 BPM MUSE SYSTEM Atrial Rate 82 BPM MUSE SYSTEM P-R Interval 136 ms MUSE SYSTEM QRS Duration 80 ms MUSE SYSTEM Q-T Interval 358 ms MUSE SYSTEM QTC Calculated (Bezet) 418 ms MUSE SYSTEM Calculated P Ford 13 degrees MUSE SYSTEM Calculated R Ford 33 degrees MUSE SYSTEM Calculated T Ford 34 degrees MUSE SYSTEM INTERPRETATION Normal sinus rhythm Normal ECG When compared with ECG of 25-NOV-2016 07:23, No significant change was found Confirmed by MD Meli, Tigre ([id number]) on 09/12/2017 4:16:03 PM MUSE SYSTEM 09/12/2017 12:1 9 PM EST 09/12/2017 4:16 PM EST Buster Doherty DO ECG ORDERABLES Performing Organization Address [facility]/ZIP Co de Phone Number MUSE [...] PROTOCOL, Starting on 09/12/17 at 1512, Until [place] 09/13/17 at 1015, Per Protocol, START ADJUSTMENT [...] 0923 (Given - Provider: Rupal Munguia RN)1002 ([facility] Hold - Provider: Admin Adt - Reason: Transfer to a Procedural area)1134 ([facility] Unhold - Provider: Admin Adt) 0830 (Given - Provider: Rupal Munguia RN) buPROPion (WELLBUTRIN SR or ZYBAN) SR tablet 150 mg 150 mg, Oral, 2 TIMES DAILY, First dose on 09/12/17 at 2100, Until Discontinued, DO NOT CRUSH OR OPEN, Routine 2030 (Given - Provider: Keisha Mae RN) 0850 (Given - Provider: Rupal Munguia RN)1002 ([facility] [place] Hold - Provider: Admin Adt - Reason: Transfer to a Procedural area)1134 ([facility] [place] Unhold - Provider: Admin Adt)2019 (Given - Provider: Keisha Mae RN) 0830 (Given - Provider: Rupal Munguia RN) clopidogrel (PLAVIX) tablet 75 mg 75 mg, Oral, DAILY, First dose on 09/13/17 at 0900, Until Discontinued, Routine 0850 (Given - Provider: Rupal Munguia RN)1002 ([facility] [place] Hold - Provider: Admin Adt - Reason: Transfer to a Procedural area)1134 ([facility] [place] Unhold - Provider: Admin Adt) 0830 (Given - Provider: Rupal Munguia RN) DULoxetine (CYMBALTA) capsule 60 mg 60 mg, Oral, 2 TIMES DAILY, First dose on 09/12/17 at 2100, Until Discontinued, Routine 2030 (Given - Provider: Keisha Mae RN) 0851 (Given - Provider: Rupal Munguia RN)1002 ([facility] [place] Hold - Provider: Admin Adt - Reason: Transfer to a Procedural area)1134 ([facility] [place] Unhold - Provider: Admin Adt)2019 (Given - Provider: Keisha Mae RN) 0830 (Given - Provider: Rupal Munguia RN) gabapentin (NEURONTIN) capsule 600 mg 600 mg, Oral, 2 TIMES DAILY BEFORE BREAKFAST AND LUNCH, First dose (after last modification) on 09/13/17 at 0730, Until Discontinued, Routine 0800 (Given - Provider: Rupal Munguia RN)1002 ([facility] [place] Hold - Provider: Admin Adt - Reason: Transfer to a Procedural area)1130 (Automatically Held - Provider: Admin Adt)1134 ([facility] [place] Unhold - Provider: Admin Adt)1323 (Given - Provider: Rupal Munguia RN - Comment: late lunch) 0800 (Given - Provider: Rupal Munguia RN) gabapentin (NEURONTIN) capsule 900 mg 900 mg, Oral, NIGHTLY, First dose on 09/12/17 at 2100, Until Discontinued, Routine 2030 (Given - Provider: Keisha Mae RN) 1002 ([facility] [place] Hold - Provider: Admin Adt - Reason: Transfer to a Procedural area)1134 ([facility] [place] Unhold - Provider: Admin Adt)2019 (Given [...] - Reason: Transfer to a Procedural area)1134 ([facility] [place] Unhold - Provider: Admin Adt) isosorbide [...] 0853 (Given - Provider: Rupal Munguia RN)1002 ([facility] [place] Hold - Provider: Admin Adt - Reason: Transfer to a Procedural area)1134 ([facility] [place] Unhold - Provider: Admin Adt) 0831 (Given - Provider: Rupal Munguia RN) meTOPROLOL tartrate (LOPRESSOR) tablet 50 mg 50 mg, Oral, 2 TIMES DAILY, First dose on 09/12/17 at 2100, Until Discontinued, Routine 2030 (Given - Provider: Keisha Mae RN) 0852 (Given - Provider: Ruapl Munguia RN)1002 ([facility] [place] Hold - Provider: Admin Adt - Reason: Transfer to a Procedural area)1134 ([facility] [place] Unhold - Provider: Admin Adt)2020 (Given [...] Rupal Munguia RN - Reason: Patient/family refused)1002 ([facility] [place] Hold - Provider: Admin Adt - Reason: Transfer to a Procedural area)1134 ([facility] [place] Unhold - Provider: Admin Adt) 0900 [...] - Reason: Transfer to a Procedural area)1134 ([facility] [place] Unhold - Provider: Admin Adt)2099 (Not Given [...] 0852 (Given - Provider: Rupal Munguia RN)1002 ([facility] [place] Hold - Provider: Admin Adt - Reason: Transfer to a Procedural area)1134 ([facility] [place] Unhold - Provider: Admin Adt)2019 (Given - Provider: Keisha Mae RN) 0830 (Given - Provider: Rupal Munguia RN) pramipexole (MIRAPEX) tablet 0.5 mg 0.5 mg, Oral, NIGHTLY, First dose on 09/12/17 at 2100, Until Discontinued, Routine 2030 (Given - Provider: Keisha Mae RN) 1002 ([facility] Hold - Provider: Admin Adt - Reason: Transfer to a Procedural area)1134 ([facility] [place] Unhold - Provider: Admin Adt)2019 (Given [...] - Reason: Transfer to a Procedural area)1134 ([facility] [place] Unhold - Provider: Admin Adt) cyclobenzaprine (FLEXERIL) tablet 10 mg 10 mg, Oral, 3 TIMES DAILY PRN, Starting on 09/12/17 at 1735, Until 09/14/17 at 1312, Muscle spasms, Routine 1002 ([facility] Hold - Provider: Admin Adt - Reason: Transfer to a Procedural area)1134 ([facility] [place] Unhold - Provider: Admin Adt) fentaNYL 50 [...] Keisha Mae RN - Comment: ptt 50)1002 ([facility] [place] Hold - Provider: Admin Adt - Reason: Transfer to a Procedural area)1015 ([facility] [place] Unhold - Provider: Admin Adt) heparin [...] RN)0809 (Given - Provider: Rupal Munguia RN)1002 ([facility] [place] Hold - Provider: Admin Adt - Reason: Transfer to a Procedural area)1134 ([facility] [place] Unhold - Provider: Admin Adt) oxyCODONE (ROXICODONE) immediate release tablet 10 mg 10 mg, Oral, 4 TIMES DAILY PRN, Starting on 09/12/17 at 1735, Until 09/14/17 at 1312, pain unresponsive to tylenol, Routine 1002 ([facility] Hold - Provider: Admin Adt - Reason: Transfer to a Procedural area)1134 ([facility] [place] Unhold - Provider: Admin Adt)2024 (Given [...] provided on this medication record., Routine 1002 ([facility] [place] Hold - Provider: Admin Adt - Reason: Transfer to a Procedural area)1134 ([facility] [place] Unhold - Provider: Admin Adt) sodium [...] UA) documented in this encounter Care Teams Printing Manager Relationship Specialty Start Date End Date Coni Lim MD [address] [place] [address] PCP - General 07/16/10 documented as of this encounter
--- OUTSIDE RECORDS SUMMARY | 2024-08-22 18:46 | XMS_ITS | Encounter Summary ---
[place] [address] Care Team Providers Care Museum Service Scheduler Name Role Phone Coni Lim MD Primary Care Provider [phone] Encounter Details Date Type Department Care Team (Latest Contact Info) Description 09/13/2018 11:00 AM EST Interpretation Only Cardiology at [address] [id number] Rafael Nieto Jr., MD Chest [...] type documented in this encounter Care Teams Museum Service Scheduler Relationship Specialty Start Date End Date Coni Lim MD [address] [place] [address] PCP - General 07/16/10 documented as of this encounter
--- OUTSIDE RECORDS SUMMARY | 2024-08-22 18:46 | XMS_ITS | Encounter Summary ---
[facility] [place] [address] Care Team Providers Care Cadastral Surveyor Name Role Phone Coni Lim MD Primary Care Provider [phone] Reason for Visit * Reason Comments Chest Pain * Auth/Cert Specialty Diagnoses / Procedures Referred By Contac t Referred To Contact Diagnoses Unstable angina chest pain Referral ID Status Reason Start Date Expiration Date Visits Re quested Visits Authorized [id number] 1 1 Encounter Details Date Type Department Care Team (Late st Contact Info) Description 09/12/2017 12:10 PM EST - 09/14/2017 11:12 AM EST Emergency Inter[place] [id number] Buster Doherty, [facility] [place] [address] Christos Buchanan MD Coronary artery disease, angina presence unspecified, unspecified vessel or lesion type, unspecified whether chinik or transplanted heart; Atherosclerosis of chinik coronary artery with unstable angina pectoris, unspecified whether chinik or transplanted heart Discharge Disposition: Home Social [...] Romeo Coelho Patient Age: 52 y.o. Language: Cymro Race: White Ethnicity: Not [...] please contact your inpatient physician through the [facility] Matrix Drier Tender . Issues afterhours and on weekends will be handled by the shipyard painter on-call. Discharge Diagnoses (Hospital Problems) and Secondary [...] restenosis addressed with LAD stent angioplasty at [facility] in January 2014 (ABSORB Stent) [...] patient to come to the hospital today. Teachers Aide is Dr. Vyas. ?? Currently, he watches [...] lightheadedness/presyncopal symptoms. He will follow-up with his electronic tech, Dr. Vyas, approximately 1 week as an [...] PF, Split 07/30/2013 ??? Influenza Vaccine (Novel) [id number], Injectable 05/24/2009 ??? Influenza Vaccine w/Preservative, Split [...] Discharge References/Attachments PCI (PERCUTANEOUS CORONARY INTERVENTION): POST-OP (PALAUAN) documented in this encounter Discharge Instructions * [...] PCP [address] / [place] [address] 09/22/2017, 10:30 AM Florian Ling MD, Teachers Aide GLORIA Silverman Your Inpatient Doctor(s) at [facility]: Christos Buchanan MD Daniel Storms, MD Sean Li, MD Jeffrey R Wunderlich, MD Your Primary Care Provider: Coni Lim MD [address] / [place] [address] For questions regarding this document or issues relating to this hospitalization on the Medical Service, please contact your inpatient physician through the [facility] Matrix Drier Tender . Issues afterhours and on weekends will be handled by the Hospitalist staff on-call. * Attachments The following attachments cannot be sent through Care Everywhere. * PCI (PERCUTANEOUS CORONARY INTERVENTION): POST-OP (PALAUAN) documented in this encounter Medications at Time [...] Pierson MD, PGY-1 Cardiology Service Pager # [phone] * Aida Dietrich MSW - 09/13/2017 2:23 [...] copy of notice made and given to patient/lifeline representatives. Original notice to be scanned into patient's [...] to follow. AGUSTO BALL II, MD * BrandywineChristos MD - 09/13/2017 10:37 AM EST Inpatient [...] 09/12/2017 5:31 PM EST [facility] stretcher from ED s/p [...] Buchanan MD PCP: Coni Lim MD PCP#: [phone] CC: Chest Pain Patient Active Problem List [...] restenosis addressed with LAD stent angioplasty at [facility] in January 2014 (ABSORB Stent) [...] patient to come to the hospital today. Teachers Aide is Dr. Vyas. Currently, he watches his [...] Myocardial Infarction Father 46 ID, CABG ??? Diabetes Mother ??? Hypertension Mother [...] son (age 18 months), daughter 11 in [place], [place]. Takes care of his mother who has dementia and he takes her to dialysis. is disabled. Has grown daughter who is 29 years old. 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 Physical Exam: Vitals: Most Recent Vitals: 09/12/17 [...] restenosis addressed with LAD stent angioplasty at [facility] in January 2014 (ABSORB Stent) [...] two days ago. Patient has contacted his electronic tech who advised to presentto the ED. He [...] Emergency Medicine *This note was dictated with Taplet software. 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 I've been disabled for five years due to Fibromyalgia and Arthritis. Home Environment: Lives with his , Dasia in [place], [place]. Social & Family Supports/Community Resources: , Friends, neighbors Dasia Coelho (Spouse) [address] [facility] [phone] (H) [phone] (M) Behavioral Health History: Per pt report, has Anxiety and Depression, (on Cymbalta and Wellbutrin). Substance Use/Abuse: Current every day smoker; 1-5 cigarettes a day. EtOH: None. Illicit Drug Use: Marijuana every day, medical use. Other Pertinent/Service Specific Information: None Health/Prescription Coverage: Primary Insurance: MEDICARE PART A & B Secondary Insurance: MEDICAID [place] Prescription Coverage: Yes, has Silver Script. Preferred Pharmacy: [facility] - [place], [place] - [address] ? [address] [facility] [address] ? Not a 24 hour pharmacy; exact hours not known Other: None Primary Care Provider: Coni Lim MD [phone] Patient/Caregiver Goals of Treatment: To return home and to his normal activities. Potential Needs for Transition of Care: Rehab/SNF: Pt has never been a pt in a rehab setting. Home Health: [facility] in the past (after right [...] transition of care planning. TIMBO Barrett Pager: [phone] * Plan of Care - Keisha Mae [...] Cont to monitor. 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 INDIVIDUALIZED FALL PREVENTION INTERVENTIONS: Patient-specific fall [...] 1 month of chest pressure, told by electronic tech that if he decided to be seen [...] METABOLIC PANEL Routine 09/14/2017 3:40 AM EST CLINICAL TRAINING COORDINATOR SCAN 09/14/2017 12:00 AM EST POCT GLUCOSE Routine 09/13/2017 7:50 PM EST POCT GLUCOSE Routine 09/13/2017 4:58 PM EST ECHO LMTD W/O CONTRAST W LMTD SPEC DOPP COLOR DOPP Routine 09/13/2017 2:44 PM EST Coronary artery disease, angina presence unspecified, unspecified vessel or lesion type, unspecified whether chinik or transplanted heart POCT GLUCOSE Routine 09/13/2017 11:32 AM EST CARDIAC CATHETERIZATION Routine 09/13/19 11:09 AM EST EKG 12-LEAD STAT 09/13/2017 7:49 AM EST Coronary artery disease, angina presence unspecified, unspecified vessel or lesion type, unspecified whether chinik or transplanted heart POCT GLUCOSE Routine 09/13/2017 [...] Routine 09/13/2017 6:32 AM EST CARDIAC ENZYMES ([facility]) STAT 09/13/2017 12:13 AM EST APTT STAT 09/13/2017 12:13 AM EST CARDIAC CATH SCAN 09/13/2017 12: 00 AM EST POCT GLUCOSE Routine 09/12/2017 9:14 PM EST CARDIAC ENZYMES ([facility]) STAT 09/12/2017 6:53 PM EST [...] POCT Glucose (09/14/2017 7:32 AM EST) Pathologist [facility] Glucose, POC 158 65 - 199 mg/dL [facility] Comment: Supplemental ranges: <140 mg/dL before meals <180 mg/dL all other times of the day Blood specimen (specimen) 09/14/2017 7:32 AM EST 09/14/2017 7:32 AM EST Christos Buchanan MD POINT OF CARE TEST O RDERABLES [facility] [place] [address] * Differential, Automated (09/14/2017 3:40 AM EST) Pathologist [facility] Neutrophil % 51.2 % [facility] Neutrophil Absolute 4.61 1.70 - 6.10 x10(3)/[facility] Lymph % 34.3 % [facility] Lymphocytes Abs 3.1 0.9 - 3.2 x10(3)/[facility] Monocyte % 8.6 % [facility] Monocyte Abs 0.8 0.3 - 0.9 x10(3)/[facility] Eos % 4.6 % [facility] Eosinophils Abs 0.4 0.0 - 0.4 x10(3)/[facility] Basophil % 0.9 % [facility] Baso Absolute 0.1 0.0 - 0.1 x10(3)/[facility] Immature Gran % 0.40 % [facility] Comment: Immature granulocytes(IG's)percentage and absolute count will include metamyelocytes, myelocytes, and promyelocytes. Blood smears from CBCs yielding IG's will be scanned manually for concordance. If this scan disagrees with the automated IG or if promyelocytes are noted, a manual differential will be performed. Immature Gran Absolute 0.04 0.00 - 0.04 x10(3)/[facility] Blood specimen (specimen) 09/14/2017 3:40 AM EST 09/14/2017 4:08 AM EST Narrative Resulting Agency Comment Spec In Lab Christos Buchanan MD HEMATOLOGY ORDERABLE S [facility] [place] [address] * Hemogram (09/14/2017 3:40 AM EST) [facility] White Blood Cell 9.0 4.0 - 9.5 x10(3)/[facility] Red Blood Cell 5.28 4.58 - 5.54 x10(6)/[facility] Hemoglobin 15.0 13.7 - 16.5 gm/dL [facility] Hematocrit 45.8 40.5 - 48.5 % [facility] Mean Cell Volume 86.7 82.9 - 93.1 fL [facility] Mean Cell Hemoglobin 28.4 27.5 - 32.1 pg [facility] Mean Cell Hemoglobin Concentration 32.8 32.0 - 35.7 gm/dL [facility] Platelet 188 145 - 357 x10(3)/[facility] RDW Standard Deviation 43.6 36.0 - 45.0 [facility] RDW coefficient of variation 13.7 11.4 - 13.8 % [facility] Mean Platelet Volume 10.4 7.6 - 12.9 [facility] NRBC% auto 0.0 % [facility] NRBC Absolute 0.000 0.000 - 0.000 x10(3)/[facility] Blood specimen (specimen) 09/14/2017 3:40 AM EST 09/14/2017 4:08 AM EST Narrative Resulting Agency Comment Spec In Lab Christos Buchanan MD HEMATOLOGY ORDERABLE S [facility] [place] [address] * Prothrombin Time (09/14/2017 3:40 AM EST) Prothrombin Time 13.3 11.8 - 14.0 sec [facility] International Normalization Ratio 1.0 0.9 - 1.1 [facility] Comment: An INR <2.0 [...] MD HEMATOLOGY ORDERABLE S Performing Organization Address [facility] Co de Phone Number [facility] [place] [address] * Magnesium (09/14/2017 3:40 AM EST) Magnesium 0.83 0.69 - 1.07 mmol/L [facility] Blood specimen (specimen) 09/14/2017 3:40 AM EST 09/14/2017 4:08 AM EST Narrative Resulting Agency Comment Spec In Lab Christos Buchanan MD CHEMISTRY ORDERABLES Performing Organization Address [facility] de Phone Number [facility] [place] [address] * Basic Metabolic Panel (non-fasting) (09/14/2017 3:40 AM EST) Glucose 108 65 - 199 mg/dL [facility] Comment:Diabetes: >=200 mg/d L plus symptoms Blood Urea Nitrogen 11 10 - 20 mg/dL [facility] Creatinine 1.05 0.80 - 1.50 mg/dL [facility] Sodium 143 135 - 145 mmol/L [facility] Potassium 4.0 3.5 - 5.0 mmol/L [facility] Comment: Please note: ??Patients with WBC >100,000 may have falsely elevated Potassium levels. ??For accurate Potassium quantification in these patients send serum separator tube (gold top) for subsequent determinations. ??Contact the Clinical Chemistry Laboratory if there are any questions. Chloride 106 98 - 107 mmol/L [facility] Carbon Dioxide 22 22 - 31 mmol/L [facility] Anion Gap 15 5 - 15 mmol/L [facility] Calcium 9.2 8.5 - 10.5 mg/dL [facility] Est Glomerular Filtration Rate >60 >=60 [facility] Comment: The reported eGFR should be multiplied by 1.2 for patients. The MDRD is not an appropriate measure of renal function for patients with body mass extremes or in patients with acute kidney failure. http://ASOCS/DHnkdep http://ASOCS/DHMCnkf Blood specimen (specimen) 09/14/2017 3:40 AM EST 09/14/2017 4:08 AM EST Narrative Resulting Agency Comment Spec In Lab Christos Buchanan MD CHEMISTRY ORDERABLES Performing Organization Address [facility] de Phone Number [facility] [place] [address] * SCAN DOC: CLINICAL TRAINING COORDINATOR (09/14/2017 12:00 AM EST) Anatomical Region Laterality Modality Other Narrative 09/14/2017 12:00 AM EST Ordered by an unspecified provider. Scanning Provider MEDIA MGR SCAN EXT O RDR/RSLT * POCT Glucose (09/13/2017 7:50 PM EST) Glucose, POC 113 65 - 199 mg/dL [facility] Comment: Supplemental ranges: <140 mg/dL before meals <180 mg/dL all other times of the day Blood specimen (specimen) 09/13/2017 7:50 PM EST 09/13/2017 7:50 PM EST Christos Buchanan MD POINT OF CARE TEST O RDERABLES Performing Organization Address [facility] de Phone Number [facility] [place] [address] * POCT Glucose (09/13/2017 4:58 PM EST) Glucose, POC 138 65 - 199 mg/dL [facility] Comment: Supplemental ranges: <140 mg/dL before meals <180 mg/dL all other times of the day Blood specimen (specimen) 09/13/2017 4:58 PM EST 09/13/2017 4:58 PM EST Christos Buchanan MD POINT OF CARE TEST O RDERABLES [facility] [place] [address] * ECHO LMTD W/O CONTRAST W LMTD SPEC DOPP COLOR DOPP (09/13/2017 2:44 PM EST) EF 65 [facility]ART[facility] SYSTEM Anatomical Region Laterality Modality Other 09/13/2017 Narrative 09/13/2017 3:16 PM EST Procedure: ?Transthoracic Echocardiogram Patient: ?COELHOCOLE Pop ? (Age): 1965(52y) Med Rec#: ? [id number] ?Sex: ?M ? Site Loc: ? [facility] ?Ht / Wt: ??180.3(cm)/101.6 Pt. Loc: ?Adult Floor ? BSA: ?2.21 Study Date: ?? 09/13/2017 ?Pt. Type: Outpatient Tape: ? Referring: Christos Buchanan ([id number]) Reading: Christos Buchanan ([id number]) Garage Worker: Meaghan Kim Diagnosis: *ICD-10-PCS Atherosclerotic heart disease of chinik coronary artery without angina pectoris (I25.10) BP: [...] E-wave Vmax ?0.6 ?m/sec ? MV deceleration oiid745.5 ?msec ? MV A-wave Vmax ?0.5 ?m/sec [...] ? Mid-Inferior ?Normal ? Mid-Inferoseptal ?Normal ? Purcell-Septal ? Normal ? Purcell-Anterior ? Normal ? Purcell-Lateral ?Normal ? Purcell-Inferior ? Normal ? Purcell-Tip ?Normal ? This report has been electronically signed by: Christos Buchanan M.D. ? 09/13/2017 15:16:25 Images reviewed and interpretation verified [facility] Cardiac Ultrasound Laboratory Procedure Note Christos Buchanan MD - 09/13/2017 Procedure: Transthoracic Echocardiogram Patient: LAQUITA Pop (Age): 1965(52y) Med Rec#: [id number] Sex: M Site Loc: [facility] Ht / Wt: 180.3(cm)/101.6 Pt. Loc: Adult Floor BSA: 2.21 Study Date: 09/13/2017 Pt. Type: Outpatient Tape: Referring: Christos Buchanan ([id number]) Reading: Christos Buchanan ([id number]) Garage Worker: Meaghan Kim Diagnosis: *ICD-10-PCS Atherosclerotic heart disease of chinik coronary artery without angina pectoris (I25.10) BP: [...] MV E-wave Vmax 0.6 m/sec MV deceleration ugbi608.5 msec MV A-wave Vmax 0.5 m/sec MV [...] Normal Mid-Posterolateral Normal Mid-Inferior Normal Mid-Inferoseptal Normal Purcell-Septal Normal Purcell-Anterior Normal Purcell-Lateral Normal Purcell-Inferior Normal Purcell-Tip Normal This report has been electronically signed by: Christos Buchanan M.D. 09/13/2017 15:16:25 Images reviewed and interpretation verified [facility] Cardiac Ultrasound Laboratory Christos Buchanan MD ECHO ORDERABLES * POCT Glucose (09/13/2017 11:32 AM EST) Glucose, POC 104 65 - 199 mg/dL [facility] Comment: Supplemental ranges: <140 mg/dL before meals <180 mg/dL all other times of the day Blood specimen (specimen) 09/13/2017 11:32 AM EST 09/13/2017 11:32 AM EST Christos Buchanan MD POINT OF CARE TEST O RDERABLES Performing Organization Address City/State/[facility] Co de Phone Number [facility] [place] [address] * CARDIAC CATHETERIZATION (09/13/2017 11:09 AM EST) Anatomical Region Laterality Modality Other Narrative 09/13/2017 11:33 AM EST ?[facility] ? Cardiac Catheterization/Intervention Report ? Patient Name: Romeo Coelho. ? Procedure Date: 09/13/2017 ? A #: [id number] ? Primary Physician: Agusto Ball ? Case #: [id number] ? File Name: [id number] ? Catheterization Order Number: [id number] ? [facility] ? Final Report [place], [place] ? Patient Name: ? Romeo A. Coelho ? ID#: ?[id number] ? : ?1965 ? Procedure Date: ? [...] presented with: unstable angina (w/i 60 days). Payne ?Cardiovascular Society angina class was IV. This [...] Ball II, MD - 09/14/2017 [facility] Cardiac Catheterization/Intervention Report Patient Name: Romeo Coelho Procedure Date: 09/13/2017 A #: [id number] Primary Physician: Agusto Ball Case #: [id number] File Name: [id number] Catheterization Order Number: [id number] [facility] FinalReport [place], [place] Patient Name: Romeo Coelho ID#:[id number] :1965 Procedure Date: September 13, 2017 Case [...] presented with: unstable angina (w/i 60 days). [place] Cardiovascular Society angina class was IV. This [...] (Bezet) 416 ms MUSE SYSTEM Calculated P [place] 5 degrees MUSE SYSTEM Calculated R [place] 23 degrees MUSE SYSTEM Calculated T [place] 28 degrees MUSE SYSTEM INTERPRETATION Normal sinus rhythm Normal ECG When compared with ECG of 12-SEP-2017 12:19, No significant change was found Confirmed by MD Segundo, Panda Leyva ([id number]) on 09/14/2017 9:09:15 AM MUSE SYSTEM 09/13/2017 7:49 AM EST 09/14/2017 9:09 AM EST Christos Buchanan MD ECG ORDERABLES MUSE SYSTEM * POCT Glucose (09/13/2017 7:24 AM EST) Glucose, POC 152 65 - 199 mg/dL [facility] Comment: Supplemental ranges: <140 mg/dL before meals <180 mg/dL all other times of the day Blood specimen (specimen) 09/13/2017 7:24 AM EST 09/13/2017 7:24 AM EST Christos Buchanan MD POINT OF CARE TEST O RDERABLES [facility] [place] [address] * (ABNORMAL) BMP w/fasting Glucose (09/13/2017 6:32 AM EST) [facility] Glucose Fasting 157(H) 65 - 99 mg/dL [facility] [...] of Diabetes Mellitus, Position Statement from the [place] [employer]. ??Diabetes Care, Volume 33, Supplement 1, Aug 2009 Blood Urea Nitrogen 11 10 - 20 mg/dL [facility] Creatinine 0.99 0.80 - 1.50 mg/dL [facility] Sodium 142 135 - 145 mmol/L [facility] Potassium 3.7 3.5 - 5.0 mmol/L [facility] Comment: Please note: ??Patients with WBC >100,000 may have falsely elevated Potassium levels. ??For accurate Potassium quantification in these patients send serum separator tube (gold top) for subsequent determinations. ??Contact the Clinical Chemistry Laboratory if there are any questions. Chloride 106 98 - 107 mmol/L [facility] Carbon Dioxide 21(L) 22 - 31 mmol/L [facility] Anion Gap 15 5 - 15 mmol/L [facility] Calcium 9.4 8.5 - 10.5 mg/dL [facility] Est Glomerular Filtration Rate >60 >=60 [facility] Comment: The reported eGFR should be multiplied by 1.2 for patients. The MDRD is not an appropriate measure of renal function for patients with body mass extremes or in patients with acute kidney failure. http://ASOCS/DHnkdep http://ASOCS/[facility] Blood specimen (specimen) 09/13/2017 6:32 AM EST 09/13/2017 6:41 AM EST Narrative Resulting Agency Comment Spec In Lab Christos Buchanan MD CHEMISTRY ORDERABLES Performing Organization Address [facility] Co de Phone Number [facility] [place] [address] * (ABNORMAL) APTT (09/13/2017 6:32 AM EST) [facility] Partial Thromboplastin Time 113(H) 25 - 35 sec [facility] Comment: The recommended therapeutic range for full dose, unfractionated heparin at [facility] is 80 ? 114 seconds. The use of the anti-Xa (heparin) level rather than the PTT is recommended for monitoring anticoagulation intensity in critically ill patients receiving unfractionated heparin by continuous IV infusion. Blood specimen (specimen) 09/13/2017 6:32 AM EST 09/13/2017 6:41 AM EST Narrative Resulting Agency Comment Spec In Lab Christos Buchanan MD HEMATOLOGY ORDERABLE S Performing Organization Address [facility] Co de Phone Number [facility] [place] [address] * Differential, Automated (09/13/2017 6:32 AM EST) [facility] Neutrophil % 64.9 % [facility] Neutrophil Absolute 5.94 1.70 - 6.10 x10(3)/[facility] Lymph % 24.7 % [facility] Lymphocytes Abs 2.3 0.9 - 3.2 x10(3)/[facility] Monocyte % 5.3 % [facility] Monocyte Abs 0.5 0.3 - 0.9 x10(3)/[facility] Eos % 4.0 % [facility] Eosinophils Abs 0.4 0.0 - 0.4 x10(3)/[facility] Basophil % 0.7 % [facility] Baso Absolute 0.1 0.0 - 0.1 x10(3)/[facility] Immature Gran % 0.40 % [facility] Comment: Immature granulocytes(IG's)percentage and absolute count will include metamyelocytes, myelocytes, and promyelocytes. Blood smears from CBCs yielding IG's will be scanned manually for concordance. If this scan disagrees with the automated IG or if promyelocytes are noted, a manual differential will be performed. Immature Gran Absolute 0.04 0.00 - 0.04 x10(3)/[facility] Blood specimen (specimen) 09/13/2017 6:32 AM EST 09/13/2017 6:41 AM EST Narrative Resulting Agency Comment Spec In Lab Christos Buchanan MD HEMATOLOGY ORDERABLE S [facility] [place] [address] * Hemogram (09/13/2017 6:32 AM EST) White Blood Cell 9.2 4.0 - 9.5 x10(3)/[facility] Red Blood Cell 5.29 4.58 - 5.54 x10(6)/[facility] Hemoglobin 15.4 13.7 - 16.5 gm/dL [facility] Hematocrit 44.9 40.5 - 48.5 % [facility] Mean Cell Volume 84.9 82.9 - 93.1 fL [facility] Mean Cell Hemoglobin 29.1 27.5 - 32.1 pg [facility] Mean Cell Hemoglobin Concentration 34.3 32.0 - 35.7 gm/dL [facility] Platelet 186 145 - 357 x10(3)/[facility] RDW Standard Deviation 42.9 36.0 - 45.0 [facility] RDW coefficient of variation 13.8 11.4 - 13.8 % [facility] Mean Platelet Volume 10.3 7.6 - 12.9 [facility] NRBC% auto 0.0 % [facility] NRBC Absolute 0.000 0.000 - 0.000 x10(3)/[facility] Blood specimen (specimen) 09/13/2017 6:32 AM EST 09/13/2017 6:41 AM EST Narrative Resulting Agency Comment Spec In Lab Christos Buchanan MD HEMATOLOGY ORDERABLE S Performing Organization Address [facility] Co de Phone Number [facility] [place] [address] * Blood culture (09/13/2017 6:32 AM EST) Blood Culture No growth at 5 days. [facility] Blood specimen (specimen) 09/13/2017 6:32 AM EST 09/13/2017 7:17 AM EST Comment:L FOREARM Narrative Resulting Agency Comment Spec In Lab Christos Buchanan MD MICROBIOLOGY - BLOOD ORDERABLES Performing Organization Address [facility] Co de Phone Number [facility] [place] [address] * Prothrombin Time (09/13/2017 6:32 AM EST) Prothrombin Time 13.8 11.8 - 14.0 sec [facility] International Normalization Ratio 1.1 0.9 - 1.1 [facility] Comment: An INR <2.0 [...] MD HEMATOLOGY ORDERABLE S Performing Organization Address [facility]/ZIP Co de Phone Number [facility] [place] [address] * Magnesium (09/13/2017 6:32 AM EST) Magnesium 0.84 0.69 - 1.07 mmol/L [facility] Blood specimen (specimen) 09/13/2017 6:32 AM EST 09/13/2017 6:41 AM EST Narrative Resulting Agency Comment Spec In Lab Christos Buchanan MD CHEMISTRY ORDERABLES Performing Organization Address [facility] Co de Phone Number [facility] [place] [address] * Triglyceride (09/13/2017 6:32 AM EST) Triglyceride 153 <=199 mg/dL [facility] Blood specimen (specimen) 09/13/2017 6:32 AM EST 09/13/2017 6:41 AM EST Narrative Resulting Agency Comment Spec In Lab Christos Buchanan MD CHEMISTRY ORDERABLES Performing Organization Address [facility] Co de Phone Number [facility] [place] [address] * HDL/Cholesterol Profile (09/13/2017 6:32 AM EST) Cholesterol, Total 162 <=239 mg/dL [facility] HDL Cholesterol 44 >=40 mg/dL [facility] Cholesterol/HDL Ratio 3.7 ratio [facility] Chol/HDL Interpretation See Note [facility] Comment: Lipid management should be guided by a patient? s ASCVD risk, goals and preferences. ACC/AHA Guidelines recommend high intensity statin if clinical ASCVD or LDL greater than or equal to 190 mg/dL. http://[employer].com/AUF-LTA-Cwenfiekg Measure LDL if Total Cholesterol minus HDL Cholesterol is greater than 220 mg/dL. Adults aged 40-75 with LDL 70-189 mg/dL should have their 10 year ASCVD risk estimated with the ACC/AHA ASCVD risk building estimator http://tools.acc.org/FSPYN-Djru-Kwruxewhq/ Statin should be discussed if risk greater [...] Narrative Resulting Agency Comment Spec In Lab Chirstos Buchanan MD CHEMISTRY ORDERABLES Performing Organization Address [facility] Co de Phone Number [facility] [place] [address] * LDL Cholesterol, Direct (09/13/2017 6:32 AM EST) LDL Cholesterol, Direct 102 <=190 mg/dL [facility] Blood specimen (specimen) 09/13/2017 6:32 AM EST 09/13/2017 6:41 AM EST Narrative Resulting Agency Comment Spec In Lab Christos Buchanan MD CHEMISTRY ORDERABLES Performing Organization Address City/[facility]/ZIP Co de Phone Number [facility] [place] [address] * (ABNORMAL) Hemoglobin A1c (09/13/2017 6:32 AM EST) Hemoglobin A1c 6.4(H) 4.3 - 5.6 % [facility] [...] Mellitus, Diabetes Care 2013; 36: Suppl. 1, S67-27 Estimated Average Glucose 137 mg/dL [facility] Comment: eAG [...] into estimated average glucose values. ??Diabetes Care 2008:31(8):9414-4084. Blood specimen (specimen) 09/13/2017 6:32 AM EST 09/13/2017 6:41 AM EST Narrative Resulting Agency Comment Spec In Lab Christos Buchanan MD CHEMISTRY ORDERABLES Performing Organization Address [facility] Co de Phone Number [facility] [place] [address] * pro-Brain Natriuretic Peptide (09/13/2017 6:32 AM EST) NT-proBNP 15 <=125 pg/mL [facility] Blood specimen (specimen) 09/13/2017 6:32 AM EST 09/13/2017 6:41 AM EST Narrative Resulting Agency Comment Spec In Lab Christos Buchanan MD CHEMISTRY ORDERABLES Performing Organization Address [facility] de Phone Number [facility] [place] [address] * (ABNORMAL) APTT (09/13/2017 12:13 AM EST) Partial Thromboplastin Time 50(H) 25 - 35 sec [facility] Comment: The recommended therapeutic range for full dose, unfractionated heparin at [facility] is 80 ? 114 seconds. The use of the anti-Xa (heparin) level rather than the PTT is recommended for monitoring anticoagulation intensity in critically ill patients receiving unfractionated heparin by continuous IV infusion. Blood specimen (specimen) 09/13/2017 12:13 AM EST 09/13/2017 12:42 AM EST Narrative Resulting Agency Comment Spec In Lab Christos Buchanan MD HEMATOLOGY ORDERABLE S Performing Organization Address [facility] Co de Phone Number [facility] [place] [address] * Cardiac Enzymes (LEB/CGP) (09/13/2017 12:13 AM EST) Troponin-T <0.01 0.00 - 0.00 ng/mL [facility] [...] ischemia ?? New or presumed new significant HE-xsvgiwj-Y wave (ST-T) changes or new left bundle [...] additional sample may be indicated. Reference: Third Tomales Definition of Myocardial Infarction. Journal of the [place] College [employer]iology 2012;60:1581-98 Creatine Kinase 55 0 - 200 unit/L [facility] Blood specimen (specimen) 09/13/2017 12:13 AM EST 09/13/2017 12:42 AM EST Narrative Resulting Agency Comment Spec In Lab Christos Buchanan MD CHEMISTRY ORDERABLES Performing Organization Address City/[facility] Co de Phone Number [facility] [place] [address] * SCAN DOC: CARDIAC CATH (09/13/2017 12:00 AM EST) Anatomical Region Laterality Modality Cardiac Other Narrative 09/13/2017 12:00 AM EST Ordered by an unspecified provider. Scanning Provider MEDIA MGR SCAN EXT O RDR/RSLT * POCT Glucose (09/12/2017 9:14 PM EST) Glucose, POC 102 65 - 199 mg/dL [facility] Comment: Supplemental ranges: <140 mg/dL before meals <180 mg/dL all other times of the day Blood specimen (specimen) 09/12/2017 9:14 PM EST 09/12/2017 9:14 PM EST Christos Buchanan MD POINT OF CARE TEST O RDERABLES [facility] [place] [address] * Cardiac Enzymes (LEB/CGP) (09/12/2017 6:53 PM EST) Troponin-T <0.01 0.00 - 0.00 ng/mL [facility] [...] ischemia ?? New or presumed new significant ZF-bxljlfl-X wave (ST-T) changes or new left bundle [...] additional sample may be indicated. Reference: Third Tomales Definition of Myocardial Infarction. Journal of the [place] College of Cardiology 2012;60:1581-98 Creatine Kinase 57 0 - 200 unit/L [facility] Blood specimen (specimen) 09/12/2017 6:53 PM EST 09/12/2017 7:02 PM EST Narrative Resulting Agency Comment Spec In Lab Christos Buchanan MD CHEMISTRY ORDERABLES Performing Organization Address [facility]/ZIP Co de Phone Number [facility] [place] [address] * XR Chest PA & Lateral (Generic) [...] No acute cardiopulmonary disease. Buster Doherty DO [facility] DX ORDERABLES * Prothrombin Time (09/12/2017 1:29 PM EST) Prothrombin Time 13.7 11.8 - 14.0 sec [facility] International Normalization Ratio 1.1 0.9 - 1.1 [facility] Comment: An INR <2.0 [...] Lab Alejandro Blair MD HEMATOLOGY ORDERAB LES [facility] [place] [address] * APTT (09/12/2017 1:29 PM EST) Partial Thromboplastin Time 28 25 - 35 sec [facility] Comment: The recommended therapeutic range for full dose, unfractionated heparin at [facility] is 80 ? 114 seconds. The use of the anti-Xa (heparin) level rather than the PTT is recommended for monitoring anticoagulation intensity in critically ill patients receiving unfractionated heparin by continuous IV infusion. Blood specimen (specimen) Venous Draw / Unknown 09/12/2017 1:29 PM EST 09/12/2017 1:34 PM EST Narrative Resulting Agency Comment Spec In Lab Alejandro Blair MD HEMATOLOGY ORDERAB LES [facility] [place] [address] * pro-Brain Natriuretic Peptide (09/12/2017 1:29 PM EST) [facility] NT-proBNP 20 <=125 pg/mL [facility] Blood specimen (specimen) Venous Draw / Unknown 09/12/2017 1:29 PM EST 09/12/2017 1:35 PM EST Narrative Resulting Agency Comment Spec In Lab Alejandro Blair MD CHEMISTRY ORDERABL ES Performing Organization Address City/[facility]/ZIP Co de Phone Number [facility] [place] [address] * Gold Tube HOLD (09/12/2017 1:29 PM EST) Pathologist [facility] Gold Hold Sample in lab. [facility] Blood specimen (specimen) Venous Draw / Unknown 09/12/2017 1:29 PM EST 09/12/2017 1:34 PM EST Alejandro Blair MD CHEMISTRY ORDERABL ES [facility] [place] [address] * Blue Tube HOLD (09/12/2017 1:29 PM EST) Pathologist [facility] Blue Hold Sample in lab. [facility] Blood specimen (specimen) Venous Draw / Unknown 09/12/2017 1:29 PM EST 09/12/2017 1:34 PM EST Alejandro Blair MD HEMATOLOGY ORDERAB LES [facility] [place] [address] * Differential, Automated (09/12/2017 1:29 PM EST) [facility] Neutrophil % 57.0 % [facility] Neutrophil Absolute 5.07 1.70 - 6.10 x10(3)/[facility] LABORATORY Lymph % 29.7 % [facility] Lymphocytes Abs 2.6 0.9 - 3.2 x10(3)/[facility]OR[facility] Monocyte % 7.8 % [facility] Monocyte Abs 0.7 0.3 - 0.9 x10(3)/[facility] LABOR[facility] Eos % 4.2 % [facility] Eosinophils Abs 0.4 0.0 - 0.4 x10(3)/[facility] Basophil % 0.8 % [facility] Baso Absolute 0.1 0.0 - 0.1 x10(3)/[facility] LABORATORY Immature Gran % 0.50 % [facility] Comment: Immature granulocytes(IG's)percentage and absolute count will include metamyelocytes, myelocytes, and promyelocytes. Blood smears from CBCs yielding IG's will be scanned manually for concordance. If this scan disagrees with the automated IG or if promyelocytes are noted, a manual differential will be performed. Immature Gran Absolute 0.04 0.00 - 0.04 x10(3)/[facility] Blood specimen (specimen) 09/12/2017 1:29 PM EST 09/12/2017 1:34 PM EST Narrative Resulting Agency Comment Spec In Lab Alejandro Blair MD HEMATOLOGY ORDERAB LES [facility] [place] [address] * Hemogram (09/12/2017 1:29 PM EST) White Blood Cell 8.9 4.0 - 9.5 x10(3)/[facility] LAB[facility]ATORY Red Blood Cell 5.07 4.58 - 5.54 x10(6)/[facility] Hemoglobin 14.8 13.7 - 16.5 gm/dL [facility] Hematocrit 43.3 40.5 - 48.5 % [facility] Mean Cell Volume 85.4 82.9 - 93.1 fL [facility] Mean Cell Hemoglobin 29.2 27.5 - 32.1 pg [facility] Mean Cell Hemoglobin Concentration 34.2 32.0 - 35.7 gm/dL [facility] Platelet 208 145 - 357 x10(3)/[facility] LABORATORY RDW Standard Deviation 42.5 36.0 - 45.0 [facility]ORY RDW coefficient of variation 13.7 11.4 - 13.8 % [facility] Mean Platelet Volume 10.4 7.6 - 12.9 fL [facility] NRBC% auto 0.0 % [facility] NRBC Absolute 0.000 0.000 - 0.000 x10(3)/[facility] Blood specimen (specimen) 09/12/2017 1:29 PM EST 09/12/2017 1:34 PM EST Narrative Resulting Agency Comment Spec In Lab Alejandro Blair MD HEMATOLOGY ORDERAB LES [facility] [place] [address] * (ABNORMAL) Basic Metabolic Panel (non-fasting) (09/12/2017 1:29 PM EST) Glucose 113 65 - 199 mg/dL [facility] Comment:Diabetes: >=200 mg/d L plus symptoms Blood Urea Nitrogen 10 10 - 20 mg/dL [facility] Creatinine 0.96 0.80 - 1.50 mg/dL [facility] Sodium 143 135 - 145 mmol/L [facility] Potassium 3.9 3.5 - 5.0 mmol/L [facility] Comment: Please note: ??Patients with WBC >100,000 may have falsely elevated Potassium levels. ??For accurate Potassium quantification in these patients send serum separator tube (gold top) for subsequent determinations. ??Contact the Clinical Chemistry Laboratory if there are any questions. Chloride 106 98 - 107 mmol/L [facility] Carbon Dioxide 20(L) 22 - 31 mmol/L [facility] Anion Gap 17(H) 5 - 15 mmol/L [facility] Calcium 9.2 8.5 - 10.5 mg/dL [facility] Est Glomerular Filtration Rate >60 >=60 [facility] Comment: The reported eGFR should be multiplied by 1.2 for patients. The MDRD is not an appropriate measure of renal function for patients with body mass extremes or in patients with acute kidney failure. http://[employer].[place]/DHnkdep http://[employer]/DHMCnkf Blood specimen (specimen) 09/12/2017 1:29 PM EST 09/12/2017 1:34 PM EST Narrative Resulting Agency Comment Spec In Lab Alejandro Blair MD CHEMISTRY ORDERABL ES [facility] [place] [address] * Cardiac Enzymes (LEB/CGP) (09/12/2017 1:29 PM EST) Troponin-T <0.01 0.00 - 0.00 ng/mL [facility] [...] ischemia ?? New or presumed new significant BY-fwuocsy-N wave (ST-T) changes or new left bundle [...] additional sample may be indicated. Reference: Third Tomales Definition of Myocardial Infarction. Journal of the [place] College of Cardiology 2012;60:1581-98 Creatine Kinase 65 0 - 200 unit/L [facility] Blood specimen (specimen) 09/12/2017 1:29 PM EST 09/12/2017 1:34 PM EST Narrative Resulting Agency Comment Spec In Lab Alejandro Blair MD CHEMISTRY ORDERABL ES [facility] [place] [address] * EKG 12 Lead (09/12/2017 12:19 PM EST) Ventricular rate 82 BPM MUSE SYSTEM Atrial Rate 82 BPM MUSE SYSTEM P-R Interval 136 ms MUSE SYSTEM QRS Duration 80 ms MUSE SYSTEM Q-T Interval 358 ms MUSE SYSTEM QTC Calculated (Bezet) 418 ms MUSE SYSTEM Calculated P [place] 13 degrees MUSE SYSTEM Calculated R [place] 33 degrees MUSE SYSTEM Calculated T [place] 34 degrees MUSE SYSTEM INTERPRETATION Normal sinus [...] unspecified vessel or lesion type, unspecified whether chinik or transplanted heart Atherosclerosis of chinik coronary artery with unstable angina pectoris, unspecified whether chinik or transplanted heart Unstable angina Intermediate coronary [...] 75 mg, Oral, DAILY, First dose on [facility] 09/13/17 at 0900, Until Discontinued, Routine Given 09/14/2017 8:30 AM EST 75 mg Given 09/13/2017 8:50 AM EST 75 mg DULoxetine (CYMBALTA) capsule 60 mg 60 mg, Oral, 2 TIMES DAILY, First dose on [facility] 09/12/17 at 2100, Until Discontinued, Routine Given 09/14/2017 8:30 AM EST 60 mg Given 09/13/2017 8:20 PM EST 60 mg Given 09/13/2017 8:51 AM EST 60 mg gabapentin (NEURONTIN) capsule 600 mg 600 mg, Oral, 2 TIMES DAILY BEFORE BREAKFAST AND LUNCH, First dose (after last modification) on [facility] 09/13/17 at 0730, Until Discontinued, Routine Given 09/14/2017 8:00 AM EST 600 mg Given 09/13/2017 1:23 PM EST 600 mg Given 09/13/2017 8:00 AM EST 600 mg gabapentin (NEURONTIN) capsule 900 mg 900 mg, Oral, NIGHTLY, First dose on [facility] 09/12/17 at 2100, Until Discontinued, Routine Given 09/13/2017 8:20 PM EST 900 mg Given 09/12/2017 8:30 PM EST 900 mg heparin (porcine) injection 0-4,000 Units 0-4,000 Units, Intravenous, BOLUS PER HEPARIN PROTOCOL, Starting on [facility] 09/12/17 at 1512, Until [facility] 09/13/17 at 1015, Per Protocol, START ADJUSTMENT SCHEDULE 6 HOURS AFTER STARTING INFUSION aPTT Between 60 - 79 seconds: Bolus 2,000 units aPTT Less than 60 seconds: Bolus 4,000 units Increase infusion and recheck aPTT in 6 hours. , Routine Given 09/13/2017 1:18 AM EST 4,000 Units heparin (porcine) injection 4,000 Units 4,000 Units, Intravenous, ONCE, 1 dose, On [facility] 09/12/17 at 1515, INITIAL LOADING DOSE Maximum loading dose 4,000 units., Routine Given 09/12/2017 5:09 PM EST 4,000 Units heparin 25,000 units in dextrose 5% 500 mL infusion 0-5,000 Units/hr (0-100 mL/hr), Intravenous, CONTINUOUS, Starting on [facility] 09/12/17 at 1515, Until Thu09/13/17 at 1015, [...] Transdermal, 2 TIMES DAILY, First dose on [facility] 09/13/17 at 0415, Until Discontinued, Verify nicotine [...] Reason: Transfer to a Procedural area)1134 ([facility] Unhold - Provider: Admin Adt) 0830 (Given - Provider: Rupal Munguia RN) buPROPion (WELLBUTRIN SR or ZYBAN) SR tablet 150 mg 150 mg, Oral, 2 TIMES DAILY, First dose on 09/12/17 at 2100, Until Discontinued, DO NOT CRUSH OR OPEN, Routine 2030 (Given - Provider: Keisha Mae RN) 0850 (Given - Provider: Rupal Munguia RN)1002 ([facility] Hold - Provider: Admin Adt - Reason: Transfer to a Procedural area)1134 ([facility] Unhold - Provider: Admin Adt)2019 (Given - Provider: Keisha Mae RN) 0830 (Given - Provider: Rupal Munguia RN) clopidogrel (PLAVIX) tablet 75 mg 75 mg, Oral, DAILY, First dose on 09/13/17 at 0900, Until Discontinued, Routine 0850 (Given - Provider: Rupal Munguia RN)1002 ([facility] Hold - Provider: Admin Adt - Reason: Transfer to a Procedural area)1134 ([facility] Unhold - Provider: Admin Adt) 0830 (Given - Provider: Rupal Munguia RN) DULoxetine (CYMBALTA) capsule 60 mg 60 mg, Oral, 2 TIMES DAILY, First dose on 09/12/17 at 2100, Until Discontinued, Routine 2030 (Given - Provider: Keisha Mae RN) 0851 (Given - Provider: Rupal Munguia RN)1002 ([facility] Hold - Provider: Admin Adt - Reason: Transfer to a Procedural area)1134 ([facility] Unhold - Provider: Admin Adt)2020 (Given - Provider: Keisha Mae RN) 0830 (Given - Provider: Rupal Munguia RN) gabapentin (NEURONTIN) capsule 600 mg 600 mg, Oral, 2 TIMES DAILY BEFORE BREAKFAST AND LUNCH, First dose (after last modification) on 09/13/17 at 0730, Until Discontinued, Routine 0800 (Given - Provider: Rupal Munguia RN)1002 ([facility] Hold - Provider: Admin Adt - Reason: Transfer to a Procedural area)1130 (Automatically Held - Provider: Admin Adt)1134 ([facility] Unhold - Provider: Admin Adt)1323 (Given - Provider: Rupal Munguia RN - Comment: late lunch) 0800 (Given - Provider: Rupal Munguia RN) gabapentin (NEURONTIN) capsule 900 mg 900 mg, Oral, NIGHTLY, First dose on 09/12/17 at 2100, Until Discontinued, Routine 2030 (Given - Provider: Keisha Mae RN) 1002 ([facility] Hold - Provider: Admin Adt - Reason: Transfer to a Procedural area)1134 ([facility] Unhold - Provider: Admin Adt)2019 [...] (Given - Provider: Rupal Munguia RN)1002 ([facility] Hold - Provider: Admin Adt - Reason: Transfer to a Procedural area)1134 ([facility] Unhold - Provider: [...] 0853 (Given - Provider: Rupal Munguia RN)1002 ([facility] Hold - Provider: Admin Adt - Reason: Transfer to a Procedural area)1134 ([facility] Unhold - Provider: Admin Adt) 0831 (Given - Provider: Rupal Munguia RN) meTOPROLOL tartrate (LOPRESSOR) tablet 50 mg 50 mg, Oral, 2 TIMES DAILY, First dose on 09/12/17 at 2100, Until Discontinued, Routine 2030 (Given - Provider: Keisha Mae, VERO) 0852 (Given - Provider: Rupal Munguia RN)1002 ([facility] Hold - Provider: Admin Adt - Reason: Transfer to a Procedural area)1134 ([facility] Unhold - Provider: Admin Adt)2020 [...] Munguia RN - Reason: Patient/family refused)1002 ([facility] Hold - Provider: Admin Adt - Reason: Transfer to a Procedural area)1134 ([facility] Unhold - Provider: [...] (Given - Provider: Mariela So RN) 1002 ([facility] Hold - Provider: Admin Adt - Reason: Transfer to a Procedural area)1134 ([facility] Unhold - Provider: Admin Adt)1639 (Given - Provider: Rupal Munguia RN) sodium chloride 0.9 % flush 5 mL 5 mL, Intravenous, 2 TIMES DAILY, First dose on 09/12/17 at 2100, Until Discontinued, Routine 2100 (Not Given - Provider: Keisha Mae RN - Reason: Contraindicated - Comment: iv infusing) 0900 (Not Given - Provider: Rupal Munguia RN - Reason: Contraindicated)1002 ([facility] Hold - Provider: Admin Adt - Reason: Transfer to a Procedural area)1134 ([facility] Unhold - Provider: Admin Adt)2100 [...] (Given - Provider: Keisha Mae, VERO) 1002 ([facility] Hold - Provider: Admin Adt - Reason: Transfer to a Procedural area)1134 ([facility] Unhold - Provider: Admin Adt)2019 [...] Reason: Transfer to a Procedural area)1015 ([facility] Unhold - Provider: [...] for discomfort with PIV insertion, Routine 1002 ([facility] Hold - Provider: Admin Adt - Reason: Transfer to a Procedural area)1134 ([facility] Unhold - Provider: [...] (Given - Provider: Rupal Munguia RN)1002 ([facility] Hold - Provider: Admin Adt - Reason: Transfer to a Procedural area)1134 ([facility] Unhold - Provider: Admin Adt) oxyCODONE (ROXICODONE) immediate release tablet 10 mg 10 mg, Oral, 4 TIMES DAILY PRN, Starting on 09/12/17 at 1735, Until 09/14/17 at 1312, pain unresponsive to tylenol, Routine 1002 ([facility] Hold - Provider: Admin Adt - Reason: Transfer to a Procedural area)1134 ([facility] Unhold - Provider: Admin Adt)2024 [...] on this medication record., Routine 1002 ([facility] Hold - Provider: Admin Adt - Reason: Transfer to a Procedural area)1134 ([facility] Unhold - Provider: [...] UA) documented in this encounter Care Teams Cadastral Surveyor Relationship Specialty Start Date End Date Coni Lim MD [address] [place] [address] PCP - General 07/16/10 documented as of this encounter
--- OUTSIDE RECORDS SUMMARY | 2024-08-22 18:46 | XMS_ITS | Encounter Summary ---
Author Organization Formerly [facility] [place] [address] Care Team Providers Care Wood Milling Machine Tender Name Role Phone Coni Lim MD Primary Care Provider [phone] Encounter Details Date Type Department Care Team (Late st Contact Info) Description 03/13/2019 Telephone Cardiology at [address] [address] Syed Solorio MD Social History Tobacco Use [...] time: 2234 Referring Provider: Heide Patient Location: [facility] Presenting Symptoms per OSH: Stable angina [...] or examined this patient. Syed Solorio MD Interpretive Program Coordinator PGY4 P: [id number] documented in this encounter Plan of Treatment Not on file documented as of this encounter Visit Diagnoses Not on filedocumented in this encounter Care Teams Wood Milling Machine Tender Relationship Specialty Start Date End Date Coni Lim MD [address] [place] [address] PCP - General 07/16/10 documented as of this encounter
--- OUTSIDE RECORDS SUMMARY | 2024-08-22 18:46 | XMS_ITS | Encounter Summary ---
Author Organization [facility] [address] Care Team Providers Care Fire Suppression Captain Name Role Phone Coni Lim MD Primary Care Provider [phone] Encounter Details Date Type Department Care Team (Late st Contact Info) Description 03/13/2019 External Results DH Patient Placement [facility] [place] [address] Social History Tobacco Use Types Packs/Day Years [...] on filedocumented in this encounter Care Teams Fire Suppression Captain Relationship Specialty Start Date End Date Coni Lim MD [address] [place] [address] PCP - General 07/16/10 documented as of this encounter
--- OUTSIDE RECORDS SUMMARY | 2024-08-22 18:46 | XMS_ITS | Encounter Summary ---
[place] [address] Care Team Providers Care Assistant Director Of Nursing Name Role Phone Coni Lim MD Primary Care Provider [phone] Reason for Visit * Auth/Cert Specialty Diagnoses / Procedures Referred By Ruby t Referred To Contact Diagnoses ACS (acute coronary syndrome) UNSTABLE ANGINA Referral ID Status Reason Start Date Expiration Date Visits Re quested Visits Authorized [id number] 1 1 Encounter Details Date Type Department Care Team (Late st Contact Info) Description 03/14/2019 1:01 PM EDT - 03/14/2019 2:01 PM EDT Surgery [place] [phone] Lexus Gutiérrez MD CARDIAC CATHETERIZATION Social History [...] Romeo Coe Patient Age: 53 y.o. Language: Burundian Race: White Ethnicity: Not nor Admit date: [...] Inpatient Provider Contact Information: MD Esperanza Solis, PATHOLOGY LABORATORY AIDE Siri Bush, PATHOLOGY LABORATORY AIDE [phone] Discharge Diagnoses (Hospital Problems) and Secondary Diagnoses [...] and GERD who was transferred from [facility] with a diagnosis of [...] called. ?? His last admission to [facility] was in Aug 2017 when he presented [...] started on Heparin gtt and transferred to [facility] for cardiac cath. Hospital Course: Undifferentiated Chest Pain - Coronary Vasospasm/Microvessel angina vs Non- Cardiac Chest Pain Romeo Coe is a 53 yo M transferred from [facility] for evaluation of unstable [...] PF, Split 07/30/2013 ??? Influenza Vaccine (Novel) [id number], Injectable 05/24/2009 ??? Influenza Vaccine w/Preservative, Split [...] appointments: During 8am-5pm Thursday through Thursday call [phone] to speak with a nurse in the cardiology clinic All other times call [phone] and ask to speak to the turpentiner fire protection equipment technician. Return to work: Ok to resume, no heavy lifting for one week (nothing over 10 lbs) Driving: No driving for 48 hours after catheterization. Follow up Appointments: PCP Coni Lim MD/Keo Ballard [phone] Your follow up appointment is scheduled for March 25, 2019 at 10 45 am Cardiology- Dr. Lawson - [phone] (First apt at [facility], then you will be seen at [facility] thereafter).Your follow up appointment is scheduled for Saturday April 13, 2019 at 1:15 pm Home oxygen therapy: N/A Arrangements for VNA/home care: none Discharge References/Attachments None Esperanza Collier APRN Cardiovascular Medicine Pager [phone] 03/16/2019 documented in this encounter Discharge Instructions * Discharge Instructions* Esperanza Collier APRN - 03/16/2019 3:00 PM EDT Call your doctor if: Chest pain, shortness of breath, pain or swelling in legs occurs. If you have non-emergent questions between now and the time of your follow up appointments: During 8am-5pm Thursday through Thursday call [phone] to speak with a nurse in the cardiology clinic All other times call [phone] and ask to speak to the turpentiner fire protection equipment technician. Return to work: Ok to resume, no heavy lifting for one week (nothing over 10 lbs) Driving: No driving for 48 hours after catheterization. Follow up Appointments: PCP Coni Lim MD/Keo Ballard [phone] Your follow up appointment is scheduled for March 25, 2019 at 10 45 am Cardiology- Dr. Lawson - [phone] (First apt at [facility], then you will be seen at [facility] thereafter).Your follow up appointment [...] Progress Note Patient Name: Romeo Coe Service: HOT OILER / PA Responsible Attending: Wale Mckeon MD [...] [facility] Cardiovascular Medicine Pager [phone] 03/16/2019 Attending Staff Mine Warfare Officer Addendum: This patient was seen in conjunction [...] on medical therapies. Wale Mckeon MD, [facility], [facility] Staff Staff Mine Warfare Officer pager [phone] * Jacqueline Montes De Oca RN - [...] Progress Note Patient Name: Romeo Coe Service: HOT OILER / PA Responsible Attending: Wale Mckeon MD Reason for continued hospitalization: Evaluation and management of unstable angina S/p [facility] Medication adjustment Active Problems: Active Hospital [...] [facility] Cardiovascular Medicine Pager [phone] 03/15/2019 Attending Staff Mine Warfare Officer Addendum: This patient was seen in conjunction [...] limited us thus far. Wale Mckeon MD, [facility] Staff Staff Mine Warfare Officer pager [phone] * Wale Mckeon MD - 03/14/2019 9:23 AM EDT Images from the original note were not included. Inpatient Cardiology Progress Note Patient Name: Romeo Coe Service: HOT OILER / PA Responsible Attending: Wale Mckeon MD Reason for continued hospitalization: Evaluation and management of unstable angina Awaiting [facility] today Active Problems: Active Hospital Problems Diagnosis ??? ACS (acute coronary syndrome) Resolved Hospital Problems No resolved problems to display. Interval History: Admitted overnight in the setting of unstable angina. Troponins negative. TTE with preserved EF at 63% and no WMA. Awaiting [facility] today. Review of Systems: Review of [...] Full code Discussed with MD Siri Brar, PATHOLOGY LABORATORY AIDE Pager [phone] 03/14/2019 Attending Staff Mine Warfare Officer Addendum: This patient was seen in conjunction [...] today (include vasodilator) Wale Mckeon MD, [facility], [facility] Staff Staff Mine Warfare Officer pager [phone] documented in this encounter H&P Notes * [...] and GERD who was transferred from [facility] with a diagnosis of [...] was called. His last admission to [facility] was in Aug 2017 when he presented [...] on Heparin gtt and transferred to [facility] for cardiac cath. Past Medical History: Past [...] file Gets together: Not on file Attends zoroastrianism service: Not on file Active member of [...] Lives with and daughter at home in [place], [place]. He is disabled now. He [...] edema . Pulses palpable, no calf tenderness Neuro/BELT LOOP CUTTER: AAO x 3, No evident deficits Skin/Integumentary: [...] PCIs since 2011. Last Cath at [facility] in Aug 2017 that showed the patency [...] with good effect. 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 Pt able to [...] OUTCOME EVALUATION NOTE: OUTCOME SUMMARY: Patient to solar lab technician today. No interventions. Right radial cath site [...] and GERD who was transferred from [facility] with a diagnosis of UAP Past Medical History: Diagnosis Date ??? Allergy ??? CAD (coronary artery disease), non-obstructive 05/31/2012 ??? Depression ??? DM (diabetes mellitus) 05/31/2012 ??? Dyslipidemia 05/31/2012 ??? GERD (gastroesophageal reflux disease) 05/31/2012 ??? HTN (hypertension) 05/31/2012 ??? Hx-TIA (transient ischemic attack) 06/03/2012 ??? Smoker 05/31/2012 Hospitalizations Within the Past 30 Days: no [facility] admits in last 30 days. Anticipated Length Of Stay (If known): 1-3 days Current Decision-Making Capacity: Patient is A&Ox4 and able to make all medical decisions Advance Care Planning: Full Code Not in EPIC.This author discussed ADs with patient and offered advance directive booklet and forms,patient deferred will discuss with family at a later time. [place] surrogacy law and process of guardianship explained. If AD's have not been completed then Spouse Dasia would be surrogate decision maker per [place] surrogate decision making law. Current Coping/Education/Information Needs: Current coping questions and concerns have been addressed. Current Functional Ability: assist of staff Functional Status Prior to Admission: independent with ADLs, driving, no DME used at baseline. Home Environment: lives in 2 level house, bedroom downstairs, no stairs to enter from outside. [address] [place] [phone] Social & Family Supports/Community Resources: lives with spouse and daughter Extended Emergency Contact Information Primary Emergency Contact: LaquitaDasia Coby Address: [address] [place] [address] [facility] Relation: Spouse Health/Prescription Coverage: Primary Insurance: MEDICARE Secondary Insurance: N/A Prescription Coverage: Yes Preferred Pharmacy: [facility] [address] [address] Other: none Primary Care Provider: Coni Lim MD [phone] Patient/Caregiver Goals of Treatment: return to previous [...] of care planning. Rashmi Simmons, VERO Nurse Mounter Pager [phone] * Op Note - Lexus Gutiérrez MD - 03/14/2019 10:54 AM EDT [facility] Operative Note Patient Name: Romeo Coe : [id number] MR#: [id number] Case Date: 03/14/2019 Surgeon: Surgeon(s) and Role: [...] evident early complications. Results discussed with service flower grower Dr Mckeon, and with the patient. He did not have family that he preferred we call. He needs to be connected with a referring flower grower locally (seen at [facility]). A time-out was conducted [...] had a good night. Arrived from [facility] hospital on Heparin drip. [...] further details. Ed Simpson MD 03/14/2019 Pager [phone] documented in this encounter Plan of Treatment [...] Glucose, POC 106 65 - 199 mg/dL [facility] Comment: Supplemental ranges: <140 mg/dL before meals <180 mg/dL all other times of the day Blood specimen (specimen) 03/16/2019 11:34 AM EDT 03/16/2019 11:34 AM EDT Wale Mckeon MD POINT OF CARE TEST O RDERABLES [facility] [place] [address] * POCT Glucose (03/16/2019 7:38 AM EDT) Glucose, POC 102 65 - 199 mg/dL [facility] Comment: Supplemental ranges: <140 mg/dL before meals <180 mg/dL all other times of the day Blood specimen (specimen) 03/16/2019 7:38 AM EDT 03/16/2019 7:38 AM EDT Wale Mckeon MD POINT OF CARE TEST O RDERABLES Performing Organization Address [facility] Co de Phone Number [facility] [place] [address] * EKG 12 Lead (03/16/2019 7:07 AM EDT) Ventricular rate 59 BPM MUSE SYSTEM Atrial Rate 59 BPM MUSE SYSTEM P-R Interval 148 ms MUSE SYSTEM QRS Duration 88 ms MUSE SYSTEM Q-T Interval 408 ms MUSE SYSTEM QTC Calculated (Bezet) 403 ms MUSE SYSTEM Calculated P [place] 7 degrees MUSE SYSTEM Calculated R [place] 23 degrees MUSE SYSTEM Calculated T [place] 40 degrees MUSE SYSTEM INTERPRETATION Sinus bradycardia Otherwise normal ECG When compared with ECG of 15-MAR-2019 20:23, No significant change was found Confirmed by MD SOUMYA, JENNIFER ([id number]) on 03/16/2019 8:30:39 AM MUSE SYSTEM 03/16/2019 7:07 AM EDT 03/16/2019 8:30 AM EDT Siri Bush APRN ECG ORDERABLES Performing Organization Address [facility] Co de Phone Number MUSE SYSTEM * Differential, Automated (03/16/2019 5:07 AM EDT) Neutrophil % 48.9 % [facility] Neutrophil Absolute 3.25 1.70 - 6.10 x10(3)/[facility] Lymph % 38.1 % [facility] Lymphocytes Abs 2.5 0.9 - 3.2 x10(3)/[facility] Monocyte % 8.0 % [facility] Monocyte Abs 0.5 0.3 - 0.9 x10(3)/[facility] Eos % 4.2 % [facility] Eosinophils Abs 0.3 0.0 - 0.4 x10(3)/[facility] Basophil % 0.5 % [facility] Baso Absolute 0.0 0.0 - 0.1 x10(3)/[facility] Immature Gran % 0.30 % [facility] Comment: Immature granulocytes(IG's)percentage and absolute count will include metamyelocytes, myelocytes, and promyelocytes. Blood smears from CBCs yielding IG's will be scanned manually for concordance. If this scan disagrees with the automated IG or if promyelocytes are noted, a manual differential will be performed. Immature Gran Absolute 0.02 0.00 - 0.04 x10(3)/[facility] Blood specimen (specimen) 03/16/2019 5:07 AM EDT 03/16/2019 5:24 AM EDT Narrative Resulting Agency Comment Spec In Lab Siri Bush APRN HEMATOLOGY ORDERAB LES [facility] [place] [address] * Hemogram (03/16/2019 5:07 AM EDT) White Blood Cell 6.6 4.0 - 9.5 x10(3)/[facility] Red Blood Cell 5.33 4.58 - 5.54 x10(6)/[facility] Hemoglobin 15.6 13.7 - 16.5 gm/dL [facility] Hematocrit 45.4 40.5 - 48.5 % [facility] Mean Cell Volume 85.2 82.9 - 93.1 fL [facility] Mean Cell Hemoglobin 29.3 27.5 - 32.1 pg [facility] Mean Cell Hemoglobin Concentration 34.4 32.0 - 35.7 gm/dL [facility] Platelet 154 145 - 357 x10(3)/[facility] RDW Standard Deviation 38.3 36.0 - 45.0 fL [facility] RDW coefficient of variation 12.5 11.4 - 13.8 % [facility] Mean Platelet Volume 10.9 7.6 - 12.9 fL [facility] NRBC% auto 0.0 % [facility] NRBC Absolute 0.000 0.000 - 0.000 x10(3)/[facility] Blood specimen (specimen) 03/16/2019 5:07 AM EDT 03/16/2019 5:24 AM EDT Narrative Resulting Agency Comment Spec In Lab Siri Bush APRN HEMATOLOGY ORDERAB LES Performing Organization Address City/State/[facility] Co de Phone Number [facility] [place] [address] * (ABNORMAL) BMP w/fasting Glucose (03/16/2019 5:07 AM EDT) Glucose Fasting 119(H) 65 - 99 mg/dL [facility] [...] 20 mg/dL [facility] Creatinine 0.91 0.80 - 1.50 mg/dL [facility] Sodium 138 135 - 145 mmol/L [facility] Potassium 3.6 3.5 - 5.0 mmol/L [facility] [...] mmol/L [facility] Anion Gap 12 5 - 15 mmol/L [facility] Calcium 9.2 8.5 - 10.5 mg/dL [facility] Est Glomerular Filtration Rate 97 >=60 mL/min/1. 73 m?? [facility] Comment: The eGFR was calculated using the CKD-EPI equation. As with all creatinine based estimates of kidney function, eGFR values calculated with the CKD-EPI equation are not accurate in patients with acute kidney failure, extremes of body mass or the acutely ill. [email or web address]/[facility] eGFR 113 >=60 mL/min/1. 73 m?? [facility] Comment: The eGFR was calculated using the CKD-EPI equation. As with all creatinine based estimates of kidney function, eGFR values calculated with the CKD-EPI equation are not accurate in patients with acute kidney failure, extremes of body mass or the acutely ill. [email or web address]/DHnkf Blood specimen (specimen) 03/16/2019 5:07 AM EDT 03/16/2019 5:24 AM EDT Narrative Resulting Agency Comment Spec In Lab Siri Bush APRN CHEMISTRY ORDERABL ES [facility] [place] [address] * EKG 12 Lead (03/15/2019 8:23 PM EDT) Ventricular rate 65 BPM MUSE SYSTEM Atrial Rate 65 BPM MUSE SYSTEM P-R Interval 140 ms MUSE SYSTEM QRS Duration 86 ms MUSE SYSTEM Q-T Interval 384 ms MUSE SYSTEM QTC Calculated (Bezet) 399 ms MUSE SYSTEM Calculated P [place] 16 degrees MUSE SYSTEM Calculated R [place] 39 degrees MUSE SYSTEM Calculated T [place] 37 degrees MUSE SYSTEM INTERPRETATION Normal sinus rhythm Normal ECG When compared with ECG of 15-MAR-2019 10:49, No significant change was found Confirmed by MD SOUMYA, JENNIFER ([id number]) on 03/16/2019 12:17:34 AM MUSE SYSTEM 03/15/2019 8:23 PM EDT 03/16/2019 12:17 AM EDT Wale Mckeon MD ECG ORDERABLES Performing Organization Address [facility] de Phone Number MUSE SYSTEM * POCT Glucose (03/15/2019 8:13 PM EDT) Glucose, POC 134 65 - 199 mg/dL [facility] Comment: Supplemental ranges: <140 mg/dL before meals <180 mg/dL all other times of the day Blood specimen (specimen) 03/15/2019 8:13 PM EDT 03/15/2019 8:13 PM EDT Wale Mckeon MD POINT OF CARE TEST Woo JAMA Performing Organization Address [facility] de Phone Number [facility] [place] [address] * POCT Glucose (03/15/2019 4:58 PM EDT) Glucose, POC 109 65 - 199 mg/dL [facility] Comment: Supplemental ranges: <140 mg/dL before meals <180 mg/dL all other times of the day Blood specimen (specimen) 03/15/2019 4:58 PM EDT 03/15/2019 4:58 PM EDT Wale Mckeon MD POINT OF CARE TEST O EVITA Performing Organization Address [facility] Co de Phone Number [facility] [place] [address] * POCT Glucose (03/15/2019 11:47 AM EDT) Glucose, POC 110 65 - 199 mg/dL [facility] Comment: Supplemental ranges: <140 mg/dL before meals <180 mg/dL all other times of the day Blood specimen (specimen) 03/15/2019 11:47 AM EDT 03/15/2019 11:47 AM EDT Wale Mckeon MD POINT OF CARE TEST O RDERABLES [facility] [place] [address] * Troponin (03/15/2019 11:17 AM EDT) [facility] Troponin-T <0.01 0.00 - 0.00 ng/mL [facility] [...] ischemia ?? New or presumed new significant RE-qyljozg-L wave (ST-T) changes or new left bundle [...] additional sample may be indicated. Reference: Third [place] Definition of Myocardial Infarction. Journal of the [place] College [employer] 2012;60:1581-98 Blood specimen (specimen) 03/15/2019 11:17 AM EDT 03/15/2019 11:42 AM EDT Narrative Resulting Agency Comment Spec In Lab Esperanza Collier PATHOLOGY LABORATORY AIDE CHEMISTRY ORDERABLES Performing Organization Address [facility] Co de Phone Number [facility] [place] [address] * EKG 12 Lead (03/15/2019 10:49 AM EDT) Ventricular rate 59 BPM MUSE SYSTEM Atrial Rate 59 BPM MUSE SYSTEM P-R Interval 140 ms MUSE SYSTEM QRS Duration 86 ms MUSE SYSTEM Q-T Interval 398 ms MUSE SYSTEM QTC Calculated (Bezet) 394 ms MUSE SYSTEM Calculated P [place] 13 degrees MUSE SYSTEM Calculated R [place] 42 degrees MUSE SYSTEM Calculated T [place] 49 degrees MUSE SYSTEM INTERPRETATION Sinus bradycardia Otherwise normal ECG When compared with ECG of 15-MAR-2019 07:08, No significant change was found Confirmed by MD Buchanan Timothy ([id number]) on 03/15/2019 12:09:31 PM MUSE SYSTEM 03/15/2019 10:4 9 AM EDT 03/15/2019 12:09 PM EDT Esperanza Collier PATHOLOGY LABORATORY AIDE ECG ORDERABLES Performing Organization Address [facility] de Phone Number MUSE SYSTEM * POCT Glucose (03/15/2019 7:57 AM EDT) Pathologist [facility] Glucose, POC 114 65 - 199 mg/dL [facility] Comment: Supplemental ranges: <140 mg/dL before meals <180 mg/dL all other times of the day Blood specimen (specimen) 03/15/2019 7:57 AM EDT 03/15/2019 7:57 AM EDT Wale Mckeon MD POINT OF CARE TEST O RDERABLES Performing Organization Address [facility] Co de Phone Number [facility] [place] [address] * EKG 12 Lead (03/15/2019 7:08 AM EDT) Ventricular rate 58 BPM MUSE SYSTEM Atrial Rate 58 BPM MUSE SYSTEM P-R Interval 140 ms MUSE SYSTEM QRS Duration 90 ms MUSE SYSTEM Q-T Interval 410 ms MUSE SYSTEM QTC Calculated (Bezet) 402 ms MUSE SYSTEM Calculated P [place] 5 degrees MUSE SYSTEM Calculated R [place] 24 degrees MUSE SYSTEM Calculated T [place] 34 degrees MUSE SYSTEM INTERPRETATION Sinus bradycardia Otherwise normal ECG When compared with ECG of 14-MAR-2019 19:41, No significant change was found Confirmed by MD DOOLEY ARMIN ([id number]) on 03/15/2019 9:53:01 AM MUSE SYSTEM 03/15/2019 7:08 AM EDT 03/15/2019 9:53 AM EDT Siri Bush PATHOLOGY LABORATORY AIDE ECG ORDERABLES MUSE SYSTEM * Differential, Automated (03/15/2019 5:01 AM EDT) Neutrophil % 46.9 % [facility] Neutrophil Absolute 2.78 1.70 - 6.10 x10(3)/[facility] Lymph % 40.6 % [facility] Lymphocytes Abs 2.4 0.9 - 3.2 x10(3)/[facility] Monocyte % 7.7 % [facility] Monocyte Abs 0.5 0.3 - 0.9 x10(3)/[facility] Eos % 3.7 % [facility] Eosinophils Abs 0.2 0.0 - 0.4 x10(3)/[facility] Basophil % 0.8 % [facility] Baso Absolute 0.0 0.0 - 0.1 x10(3)/[facility] Immature Gran % 0.30 % [facility] Comment: Immature granulocytes(IG's)percentage and absolute count will include metamyelocytes, myelocytes, and promyelocytes. Blood smears from CBCs yielding IG's will be scanned manually for concordance. If this scan disagrees with the automated IG or if promyelocytes are noted, a manual differential will be performed. Immature Gran Absolute 0.02 0.00 - 0.04 x10(3)/[facility] Blood specimen (specimen) 03/15/2019 5:01 AM EDT 03/15/2019 5:12 AM EDT Narrative Resulting Agency Comment Spec In Lab Siri Bush PATHOLOGY LABORATORY AIDE HEMATOLOGY ORDERAB LES Performing Organization Address City/[facility]/ZIP Co de Phone Number [facility] [place] [address] * Hemogram (03/15/2019 5:01 AM EDT) White Blood Cell 5.9 4.0 - 9.5 x10(3)/[facility] Red Blood Cell 4.95 4.58 - 5.54 x10(6)/[facility] Hemoglobin 14.6 13.7 - 16.5 gm/dL [facility] Hematocrit 43.1 40.5 - 48.5 % [facility] Mean Cell Volume 87.1 82.9 - 93.1 [facility] Mean Cell Hemoglobin 29.5 27.5 - 32.1 pg [facility] Mean Cell Hemoglobin Concentration 33.9 32.0 - 35.7 gm/dL [facility] Platelet 156 145 - 357 x10(3)/[facility] RDW Standard Deviation 40.2 36.0 - 45.0 [facility] RDW coefficient of variation 12.5 11.4 - 13.8 % [facility] Mean Platelet Volume 10.4 7.6 - 12.9 [facility] NRBC% auto 0.0 % [facility] NRBC Absolute 0.000 0.000 - 0.000 x10(3)/[facility] Blood specimen (specimen) 03/15/2019 5:01 AM EDT 03/15/2019 5:12 AM EDT Narrative Resulting Agency Comment Spec In Lab Siri Bush PATHOLOGY LABORATORY AIDE HEMATOLOGY ORDERAB LES [facility] [place] [address] * (ABNORMAL) BMP w/fasting Glucose (03/15/2019 5:01 AM EDT) [facility] Signature Glucose Fasting 120(H) 65 - 99 mg/dL [facility] [...] Urea Nitrogen 11 10 - 20 mg/dL [facility] Creatinine 0.90 0.80 - 1.50 mg/dL [facility] Sodium 142 135 - 145 mmol/L [facility] Potassium 3.8 3.5 - 5.0 mmol/L [facility] Comment: Please note: ??Patients with WBC >100,000 may have falsely elevated Potassium levels. ??For accurate Potassium quantification in these patients send serum separator tube (gold top) for subsequent determinations. ??Contact the Clinical Chemistry Laboratory if there are any questions. Chloride 109(H) 98 - 107 mmol/L [facility] Carbon Dioxide 23 22 - 31 mmol/L [facility] Anion Gap 10 5 - 15 mmol/L [facility] Calcium 9.1 8.5 - 10.5 mg/dL [facility] Est Glomerular Filtration Rate 99 >=60 mL/min/1. 73 m?? [facility] Comment: The eGFR was calculated using the CKD-EPI equation. As with all creatinine based estimates of kidney function, eGFR values calculated with the CKD-EPI equation are not accurate in patients with acute kidney failure, extremes of body mass or the acutely ill. http://WibiData/[facility] eGFR 114 >=60 mL/min/1. 73 m?? [facility] Comment: The eGFR was calculated using the CKD-EPI equation. As with all creatinine based estimates of kidney function, eGFR values calculated with the CKD-EPI equation are not accurate in patients with acute kidney failure, extremes of body mass or the acutely ill. http://WibiData/[facility] Blood specimen (specimen) 03/15/2019 5:01 AM EDT 03/15/2019 5:12 AM EDT Narrative Resulting Agency Comment Spec In Lab Siri Bush APRN CHEMISTRY ORDERABL ES [facility] [place] [address] * (ABNORMAL) Hemoglobin A1c (03/15/2019 5:01 AM EDT) Hemoglobin A1c 6.8(H) 4.3 - 5.6 % [facility] [...] 1, S67-74 Estimated Average Glucose 148 mg/dL [facility] Comment: eAG [...] into estimated average glucose values. ??Diabetes Care 2008:31(8):3950-9284. Blood specimen (specimen) 03/15/2019 5:01 AM EDT 03/15/2019 5:12 AM EDT Narrative Resulting Agency Comment Spec In Lab Siri Bush APRN CHEMISTRY ORDERABL ES [facility] [place] [address] * Lipid Panel (03/15/2019 5:01 AM EDT) Cholesterol, Total 207 mg/dL [facility] Comment: Lower Risk: <200 mg/dL Average Risk: 200-239 mg/dL Higher Risk: >ob=593 mg/dL Triglyceride 256 mg/dL [facility] Comment: Average Risk/Lower Risk: <150 mg/dL Borderline High Risk: 150-199 mg/dL High Risk: 200-499 mg/dL Very High Risk: >ax=197 mg/dL HDL Cholesterol 28 mg/dL [facility] Comment: Males: ?? Higher Risk: <40 mg/dL Females: ?? HIgher Risk: <50 mg/dL LDL Cholesterol 128 mg/dL [facility] Comment: Lowest Risk: <100 mg/dL Lower Risk: 100-129 mg/dL Borderline High Risk: 130-159 mg/dL High Risk: 160-189 mg/dL Very High Risk: >ze=639 mg/dL Cholesterol/HDL Ratio 7.4 ratio [facility] Lipid Interpretation See Note [facility] Comment: Lipid management should be guided by a patient? s ASCVD risk, goals and preferences. ACC/AHA Guidelines recommend high intensity statin if clinical ASCVD or LDL greater than or equal to 190 mg/dL. http://[employer]com/XAV-ENV-Lbzdelssr Adults aged 40-75 with LDL 70-189 mg/dL should have their 10 year ASCVD risk estimated with the ACC/AHA ASCVD risk welding estimator http://tools.acc.org/GBKUK-Lstu-Iwrzddpug/ Statin should be discussed if risk greater [...] APRN CHEMISTRY ORDERABL ES Performing Organization Address City/[facility]/ZIP Co de Phone Number [facility] [place] [address] * POCT Glucose (03/14/2019 7:50 PM EDT) Glucose, POC 123 65 - 199 mg/dL [facility] Comment: Supplemental ranges: <140 mg/dL before meals <180 mg/dL all other times of the day Blood specimen (specimen) 03/14/2019 7:50 PM EDT 03/14/2019 7:50 PM EDT Wale Mckeon MD POINT OF CARE TEST O RDERABLES [facility] [place] [address] * EKG 12 Lead (03/14/2019 7:41 PM EDT) [facility] Ventricular rate 59 BPM MUSE SYSTEM Atrial Rate 59 BPM MUSE SYSTEM P-R Interval 142 ms MUSE SYSTEM QRS Duration 80 ms MUSE SYSTEM Q-T Interval 396 ms MUSE SYSTEM QTC Calculated (Bezet) 392 ms MUSE SYSTEM Calculated P [place] 40 degrees MUSE SYSTEM Calculated R [place] 37 degrees MUSE SYSTEM Calculated T [place] 46 degrees MUSE SYSTEM INTERPRETATION Sinus bradycardia Otherwise normal ECG When compared with ECG of 14-MAR-2019 01:06, No significant change was found Confirmed by MD SOUMYA, JENNIFER ([id number]) on 03/15/2019 9:52:58 AM MUSE SYSTEM 03/14/2019 7:41 PM EDT 03/15/2019 9:52 AM EDT Wale Mckeon MD ECG ORDERABLES Performing Organization Address [facility] Co de Phone Number MUSE SYSTEM * POCT Glucose (03/14/2019 4:21 PM EDT) [facility] Glucose, POC 128 65 - 199 mg/dL [facility] Comment: Supplemental ranges: <140 mg/dL before meals <180 mg/dL all other times of the day Blood specimen (specimen) 03/14/2019 4:21 PM EDT 03/14/2019 4:21 PM EDT Wale Mckeon MD POINT OF CARE TEST O RDERABLES Performing Organization Address [facility] Co de Phone Number [facility] [place] [address] * Troponin (03/14/2019 3:10 PM EDT) [facility] Troponin-T <0.01 0.00 - 0.00 ng/mL [facility] [...] ischemia ?? New or presumed new significant EK-hkkppsn-S wave (ST-T) changes or new left bundle [...] additional sample may be indicated. Reference: [place] Definition of Myocardial Infarction. Journal of the [place] [employer] 2012;60:1581-98 Blood specimen (specimen) 03/14/2019 3:10 PM EDT 03/14/2019 3:19 PM EDT Narrative Resulting Agency Comment Spec In Lab Wale Mckeon MD CHEMISTRY ORDERABLES [facility] [place] [address] * XR Chest PA or AP 1 [...] Glucose, POC 96 65 - 199 mg/dL [facility] Comment: Supplemental ranges: <140 mg/dL before meals <180 mg/dL all other times of the day Blood specimen (specimen) 03/14/2019 11:41 AM EDT 03/14/2019 11:41 AM EDT Wale Mckeon MD POINT OF CARE TEST O RDERABLES [facility] [place] [address] * CARDIAC CATHETERIZATION (03/14/2019 10:55 AM EDT) Anatomical Region Laterality Modality Other Narrative 03/15/2019 4:29 PM EDT ?[facility] ? Cardiac Catheterization/Intervention Report ? Patient Name: Romeo Coe A. ? Procedure Date: 03/14/2019 ? A #: [id number] ? Primary Physician: Lexus Gutiérrez ? Case #: [id number] ? File Name: [id number] ? Catheterization Order Number: [id number] ? [facility] ? Final Report [place], [place] ? Patient Name: ? Romeo KieshaNatalie Coe ? ID#: ?[id number] ? : ?1965 ? Procedure Date: ? [...] procedure was Urgent. The indication for ?the solar lab technician visit is ACS less than or equal [...] Procedure Note Lexus Gutiérrez MD - 08/13/2019 [facility] Cardiac Catheterization/Intervention Report Patient Name: Romeo CoeNatalie Procedure Date: 03/14/2019 A #: [id number] Primary Physician: Lexus Gutiérrez Case #: File Name: [id number] Catheterization Order Number: [id number] [place] [facility] FinalReport [place], [place] Patient Name: Romeo Coe ID#:[id number] :1965 Procedure Date: March 14, 2019 Case [...] patient was designated as ASAClass III. The [facility] clinical frailty scale is 2: Well. Diagnostic Tests: Prior Coronary Angiography: Prior coronary angiography was performed on 09/13/2017 andshowed non-obstructive CAD. LV ejection fraction within 6 months is63%. Electrocardiography: EKG was assessed by ECG. EKG was Normal. Medications Prior to Procedure: ASA, Beta Agatha and Statin. Indications for Diagnostic Cath: The priority of the diagnostic procedure was Urgent. The indicationfor the solar lab technician visit is ACS less than or equal [...] ischemia ?? New or presumed new significant MD-csapclf-Y wave (ST-T) changes or new left bundle [...] additional sample may be indicated. Reference: [place] Definition of Myocardial Infarction. Journal of the [place] [employer] 2012;60:1581-98 Blood specimen (specimen) 03/14/2019 8:53 AM EDT 03/14/2019 9:06 AM EDT Narrative Resulting Agency Comment Spec In Lab Wale Mckeon MD CHEMISTRY ORDERABLES Performing Organization Address City/[facility]/ZIP Co de Phone Number [facility] [place] [address] * (ABNORMAL) Differential, Automated (03/14/2019 8:53 AM EDT) Neutrophil % 33.7 % [facility] Neutrophil Absolute 2.11 1.70 - 6.10 x10(3)/[facility] Lymph % 52.4 % [facility] Lymphocytes Abs 3.3(H) 0.9 - 3.2 x10(3)/[facility] Monocyte % 7.6 % [facility] Monocyte Abs 0.5 0.3 - 0.9 x10(3)/[facility] Eos % 4.9 % [facility] Eosinophils Abs 0.3 0.0 - 0.4 x10(3)/[facility] Basophil % 1.1 % [facility] Baso Absolute 0.1 0.0 - 0.1 x10(3)/[facility] Immature Gran % 0.30 % [facility] Comment: Immature granulocytes(IG's)percentage and absolute count will include metamyelocytes, myelocytes, and promyelocytes. Blood smears from CBCs yielding IG's will be scanned manually for concordance. If this scan disagrees with the automated IG or if promyelocytes are noted, a manual differential will be performed. Immature Gran Absolute 0.02 0.00 - 0.04 x10(3)/ L [facility] Blood specimen (specimen) 03/14/2019 8:53 AM EDT 03/14/2019 9:06 AM EDT Narrative Resulting Agency Comment Spec In Lab Ed Simpson MD HEMATOLOGY ORDERABLE S Performing Organization Address City/[facility]/ZIP Co de Phone Number [facility] [place] [address] * Hemogram (03/14/2019 8:53 AM EDT) White Blood Cell 6.3 4.0 - 9.5 x10(3)/[facility] Red Blood Cell 5.11 4.58 - 5.54 x10(6)/[facility] Hemoglobin 14.9 13.7 - 16.5 gm/dL [facility] Hematocrit 44.2 40.5 - 48.5 % [facility] Mean Cell Volume 86.5 82.9 - 93.1 fL [facility] Mean Cell Hemoglobin 29.2 27.5 - 32.1 pg [facility] Mean Cell Hemoglobin Concentration 33.7 32.0 - 35.7 gm/dL [facility] Platelet 156 145 - 357 x10(3)/[facility] RDW Standard Deviation 40.3 36.0 - 45.0 [facility] RDW coefficient of variation 12.6 11.4 - 13.8 % [facility] Mean Platelet Volume 10.7 7.6 - 12.9 [facility] NRBC% auto 0.0 % [facility] NRBC Absolute 0.000 0.000 - 0.000 x10(3)/[facility] Blood specimen (specimen) 03/14/2019 8:53 AM EDT 03/14/2019 9:06 AM EDT Narrative Resulting Agency Comment Spec In Lab Ed Simpson MD HEMATOLOGY ORDERABLE S [facility] [place] [address] * Heparin (unfractionated) Level (03/14/2019 8:53 AM EDT) Pathologist [facility] UF Heparin 0.37 IU/mL [facility] MD HEMATOLOGY ORDERABLE S Performing Organization Address City/State/[facility] Co de Phone Number [facility] [place] [address] * ECHO COMPLETE (03/14/2019 8:37 AM EDT) EF 63 HEARTLAB SYSTEM Anatomical Region Laterality Modality Other 03/14/2019 Narrative 03/14/2019 8:45 AM EDT Procedure: ?Transthoracic Echocardiogram Patient: ?LAQUITA Pop ? (Age): 1965(53y) Med Rec#: ? [id number] ?Sex: ?M ? [facility] ? [facility] ?Ht / Wt: ??177(cm)/101(kg) Pt. Loc: ?Adult Floor ? BSA: ?2.18 Study Date: ?? 03/14/2019 ?Pt. Type: Inpatient Tape: ? Referring: Ed Simpson Reading: Christos Buchanan ([id number]) Cmo: Yessi Webb [facility] Diagnosis: *Unstable angina (I20.0) BP: ? 104/58 [...] E-wave Vmax ?0.6 ?m/sec ? MV deceleration fmly579.5 ?msec ? MV A-wave Vmax ?0.4 ?m/sec [...] ? Mid-Inferior ?Normal ? Mid-Inferoseptal ?Normal ? [place]-Septal ? Normal ? [place]-Anterior ? Normal ? [place]-Lateral ?Normal ? [place]-Inferior ? Normal ? [place]-Tip ?Normal ? This report has been electronically signed by: Christos Buchanan M.D. ? 03/14/2019 08:45:08 Images reviewed and interpretation verified [facility]ound [facility] Procedure Note Christos Buchanan MD - 03/14/2019 Procedure: Transthoracic Echocardiogram Patient: LAQUITA Pop (Age): 1965(53y) Med Rec#: [id number] Sex: M [place] Loc: [facility] Ht / Wt: 177(cm)/101(kg) Pt. Loc: Adult Floor BSA: 2.18 Study Date: 03/14/2019 Pt. Type: Inpatient Tape: Referring: Ed Simpson Reading: Christos Buchanan ([id number]) Cmo: Yessi Webb [facility] Diagnosis: *Unstable angina (I20.0) BP: 104/58 SUMMARY: [...] MV E-wave Vmax 0.6 m/sec MV deceleration wdrf164.5 msec MV A-wave Vmax 0.4 m/sec MV [...] Normal Mid-Posterolateral Normal Mid-Inferior Normal Mid-Inferoseptal Normal [place]-Septal Normal [place]-Anterior Normal [place]-Lateral Normal [place]-Inferior Normal [place]-Tip Normal This report has been electronically signed by: Christos Buchanan M.D. 03/14/2019 08:45:08 Images reviewed and interpretation verified [facility] Ed Simpson MD [...] TEST O RDERABLES [facility] [place] [address] * (ABNORMAL) Chloride (03/14/2019 3:28 AM EDT) Chloride 108(H) 98 - 107 mmol/L [facility] Blood specimen (specimen) 03/14/2019 3:28 AM EDT 03/14/2019 3:32 AM EDT Narrative Resulting Agency Comment Spec In Lab Wale Mckeon MD CHEMISTRY ORDERABLES [facility] [place] [address] * Troponin (03/14/2019 3:28 AM EDT) [facility] Troponin-T <0.01 0.00 - 0.00 ng/mL [facility] [...] ischemia ?? New or presumed new significant QX-pcjpeit-Q wave (ST-T) changes or new left bundle [...] additional sample may be indicated. Reference: [place] Definition of Myocardial Infarction. Journal of the [place] [employer] 2012;60:1581-98 Blood specimen (specimen) 03/14/2019 3:28 AM EDT 03/14/2019 3:32 AM EDT Narrative Resulting Agency Comment Spec In Lab Wale Mckeon MD CHEMISTRY ORDERABLES Performing Organization Address [facility] de Phone Number [facility] [place] [address] * Sodium (03/14/2019 3:28 AM EDT) Sodium 140 135 - 145 mmol/L [facility] Blood specimen (specimen) 03/14/2019 3:28 AM EDT 03/14/2019 3:32 AM EDT Narrative Resulting Agency Comment Spec In Lab Wale Mckeon MD CHEMISTRY ORDERABLES Performing Organization Address [facility] de Phone Number [facility] [place] [address] * Potassium (03/14/2019 3:28 AM EDT) Potassium 3.7 3.5 - 5.0 mmol/L [facility] [...] MD CHEMISTRY ORDERABLES Performing Organization Address [facility] de Phone Number [facility] [place] [address] * Heparin (unfractionated) Level (03/14/2019 2:46 AM [...] MD HEMATOLOGY ORDERABLE S Performing Organization Address City/State/[facility] Co de Phone Number [facility] [place] [address] * (ABNORMAL) Differential, Automated (03/14/2019 1:50 AM EDT) Neutrophil % 38.9 % [facility] Neutrophil Absolute 3.10 1.70 - 6.10 x10(3)/mc L [facility] Lymph % 49.6 % [facility] Lymphocytes Abs 4.0(H) 0.9 - 3.2 x10(3)/mc L [facility] Monocyte % 6.3 % [facility] Monocyte Abs 0.5 0.3 - 0.9 x10(3)/mc L [facility] Eos % 4.1 % [facility] Eosinophils Abs 0.3 0.0 - 0.4 x10(3)/mc L [facility] Basophil % 0.8 % [facility] Baso Absolute 0.1 0.0 - 0.1 x10(3)/mc L [facility] Immature Gran % 0.30 % [facility] Comment: Immature granulocytes(IG's)percentage and absolute count will include metamyelocytes, myelocytes, and promyelocytes. Blood smears from CBCs yielding IG's will be scanned manually for concordance. If this scan disagrees with the automated IG or if promyelocytes are noted, a manual differential will be performed. Immature Gran Absolute 0.02 0.00 - 0.04 x10(3)/mc L [facility] Blood specimen (specimen) 03/14/2019 1:50 AM EDT 03/14/2019 2:04 AM EDT Narrative Resulting Agency Comment Spec In Lab Ed Simpson MD HEMATOLOGY ORDERABLE S [facility] [place] [address] * Hemogram (03/14/2019 1:50 AM EDT) White Blood Cell 8.0 4.0 - 9.5 x10(3)/[facility] LABORATORY Red Blood Cell 4.98 4.58 - 5.54 x10(6)/[facility] Hemoglobin 15.0 13.7 - 16.5 gm/dL [facility] Hematocrit 42.4 40.5 - 48.5 % [facility] Mean Cell Volume 85.1 82.9 - 93.1 fL [facility] Mean Cell Hemoglobin 30.1 27.5 - 32.1 pg [facility] Mean Cell Hemoglobin Concentration 35.4 32.0 - 35.7 gm/dL [facility] Platelet 192 145 - 357 x10(3)/[facility] RDW Standard Deviation 39.9 36.0 - 45.0 [facility] RDW coefficient of variation 12.9 11.4 - 13.8 % [facility] Mean Platelet Volume 11.7 7.6 - 12.9 [facility] NRBC% auto 0.0 % [facility] NRBC Absolute 0.000 0.000 - 0.000 x10(3)/[facility] Blood specimen (specimen) 03/14/2019 1:50 AM EDT 03/14/2019 2:04 AM EDT Narrative Resulting Agency Comment Spec In Lab Ed Simpson MD HEMATOLOGY ORDERABLE S Performing Organization Address [facility] de Phone Number [facility] [place] [address] * pro-Brain Natriuretic Peptide (03/14/2019 1:50 AM EDT) NT-proBNP 12 <=125 pg/mL [facility] Blood specimen (specimen) 03/14/2019 1:50 AM EDT 03/14/2019 2:04 AM EDT Narrative Resulting Agency Comment Spec In Lab Ed Simpson MD CHEMISTRY ORDERABLES Performing Organization Address [facility] de Phone Number [facility] [place] [address] * Magnesium (03/14/2019 1:50 AM EDT) Magnesium 0.81 0.69 - 1.07 mmol/L [facility] Blood specimen (specimen) 03/14/2019 1:50 AM EDT 03/14/2019 2:04 AM EDT Narrative Resulting Agency Comment Spec In Lab Ed Simpson MD CHEMISTRY ORDERABLES Performing Organization Address [facility] de Phone Number [facility] [place] [address] * (ABNORMAL) BMP w/fasting Glucose (03/14/2019 1:50 AM EDT) Glucose Fasting 110(H) 65 - 99 mg/dL [facility] [...] 20 mg/dL [facility] Creatinine 1.00 0.80 - 1.50 mg/dL [facility] Sodium Not Perf 135 - 145 [facility] Potassium Not Perf 3.5 - 5.0 [facility] Comment: Called by: nathan, Read back by: Keeley Arias, Date/Time:03/14/19 03:03. Please note: ??Patients with WBC >100,000 may have falsely elevated Potassium levels. ??For accurate Potassium quantification in these patients send serum separator tube (gold top) for subsequent determinations. ??Contact the Clinical Chemistry Laboratory if there are any questions. Chloride Not Perf 98 - 107 [facility] Carbon Dioxide 22 22 - 31 mmol/L [facility] Anion Gap Unable to Calculate 5 - 15 mmol/L [facility] Calcium 8.5 8.5 - 10.5 mg/dL [facility] Est Glomerular Filtration Rate 87 >=60 mL/min/1 .73 m?? [facility] Comment: The eGFR was calculated using the CKD-EPI equation. As with all creatinine based estimates of kidney function, eGFR values calculated with the CKD-EPI equation are not accurate in patients with acute kidney failure, extremes of body mass or the acutely ill. http://WibiData/DHMCnkf eGFR 101 >=60 mL/min/1 .73 m?? [facility] Comment: The eGFR was calculated using the CKD-EPI equation. As with all creatinine based estimates of kidney function, eGFR values calculated with the CKD-EPI equation are not accurate in patients with acute kidney failure, extremes of body mass or the acutely ill. http://[employer]emids/DHMCnkf Blood specimen (specimen) 03/14/2019 1:50 AM EDT 03/14/2019 2:04 AM EDT Narrative Resulting Agency Comment Spec In Lab Ed Simpson MD CHEMISTRY ORDERABLES Performing Organization Address City/[facility] Co de Phone Number [facility] [place] [address] * EKG 12 Lead (03/14/2019 1:06 AM EDT) Ventricular rate 63 BPM MUSE SYSTEM Atrial Rate 63 BPM MUSE SYSTEM P-R Interval 146 ms MUSE SYSTEM QRS Duration 84 ms MUSE SYSTEM Q-T Interval 384 ms MUSE SYSTEM QTC Calculated (Bezet) 392 ms MUSE SYSTEM Calculated P [place] 28 degrees MUSE SYSTEM Calculated R [place] 21 degrees MUSE SYSTEM Calculated T [place] 18 degrees MUSE SYSTEM INTERPRETATION Normal sinus rhythm Normal ECG When compared with ECG of 13-SEP-2017 07:49, No significant change was found Confirmed by MD NAZANIN, DEISY ([id number]) on 03/14/2019 9:49:11 AM MUSE SYSTEM 03/14/2019 1:06 AM EDT 03/14/2019 9:49 AM EDT Ed Simpson MD ECG ORDERABLES Performing Organization Address [facility] Co de Phone Number MUSE SYSTEM [...] duration of the active insulin., Routine 1003 ([facility] Hold - Provider: Admin Adt - Reason: Transfer to a Procedural area)1133 ([facility] Unhold - Provider: Admin Adt) glucose (GLUTOSE) [...] of tube = 37.5 grams., Routine 1003 ([facility] Hold - Provider: Admin Adt - Reason: Transfer to a Procedural area)1133 ([facility] Unhold - Provider: Admin Adt) iohexol (OMNIPAQUE) [...] for discomfort with PIV insertion, Routine 1003 ([facility] Hold - Provider: Admin Adt - Reason: Transfer to a Procedural area)1133 ([facility] Unhold - Provider: Admin Adt) midazolam (PF) [...] last 24 to 72 hours., Routine 1003 ([facility] Hold - Provider: Admin Adt - Reason: Transfer to a Procedural area)1133 ([facility] Unhold - Provider: Admin Adt) nitroGLYcerin 100 [...] 0255 (Given - Provider: Keeley Arias RN)1003 ([facility] Hold - Provider: Admin Adt - Reason: Transfer to a Procedural area)1133 ([facility] Unhold - Provider: Admin Adt)1952 (Given - [...] provided on this medication record., Routine 1003 ([facility] Hold - Provider: Admin Adt - Reason: Transfer to a Procedural area)1133 ([facility] Unhold - Provider: Admin Adt) sodium chloride 0.9 % (flush) flush 5-20 mL 5-20 mL, Intravenous, EVERY 1 MIN PRN, Starting on Thu03/14/19 at 0219, Until Thu03/16/19 at 1756, flush, Flush pertains to all indwelling lines. Flush per protocol found in the job aid using the link provided on this medication record., Routine 1003 ([facility] Hold - Provider: Admin Adt - Reason: Transfer to a Procedural area)1133 ([facility] Unhold - Provider: Admin Adt) verapamil (ISOPTIN) [...] Routine documented in this encounter Care Teams Assistant Director Of Nursing Relationship Specialty Start Date End Date Coni Lim MD [address] [place] [address] PCP - General 07/16/10 documented as of this encounter
--- OUTSIDE RECORDS SUMMARY | 2024-08-22 18:46 | XMS_ITS | Encounter Summary ---
Author Organization [facility] [place] [address] Care Team Providers Care Pocket Machine Operator Name Role Phone Coni Lim MD Primary Care Provider [phone] Encounter Details Date Type Department Care Team (Late st Contact Info) Description 08/25/2017 Telephone Cardiology at [address] [phone] Zarina Jiang Social History Tobacco Use Types [...] said that his stents were replaced in [facility] and he didn't feel he needed to be in the trial anymore. I asked the patient to complete the survey based on his chest pain and he refused. He withdrew from the study. documented in this encounter Plan of Treatment Not on file documented as of this encounter Visit Diagnoses Not on filedocumented in this encounter Care Teams Pocket Machine Operator Relationship Specialty Start Date End Date Coni Lim MD [address] [place] [address] PCP - General 07/16/10 documented as of this encounter
--- OUTSIDE RECORDS SUMMARY | 2024-08-22 18:46 | XMS_ITS | Encounter Summary ---
Author Organization [facility] Address [facility] [place] [address] Care Team Providers Care Planimeter Operator Name Role Phone Coni Lim MD Primary Care Provider [phone] Encounter Details Date Type Department Care Team (Late st Contact Info) Description 03/13/2019 11:10 PM EDT Ancillary Procedure Radiology Library at [facility] [place] [address] Wale Mckeon MD [facility] [place] [address] Social History Tobacco Use Types Packs/Day Years [...] DX Chest (03/13/2019 11:09 PM EDT) Narrative [facility] - 03/13/2019 11:09 PM EDT This exam is auto-finalizing. It's purpose is for storage only. Wale Mckeon MD G FILM LIBRARY ORD ERABLES [facility] [place], [place] documented in this encounter Visit Diagnoses Not on filedocumented in this encounter Care Teams Planimeter Operator Relationship Specialty Start Date End Date Coni Lim MD [address] [place] [address] PCP - General 07/16/10 documented as of this encounter
--- OUTSIDE RECORDS SUMMARY | 2024-08-22 18:47 | XMS_ITS | Encounter Summary ---
Author Organization [facility] [place] [address] Care Team Providers Care Croze Machine Operator Name Role Phone Coni Lim MD Primary Care Provider [phone] Encounter Details Date Type Department Care Team (Late st Contact Info) Description 08/02/2015 Telephone Cardiology at [address] [phone] Destin Patel, RN Social History Tobacco Use [...] about his recent admission for stroke at [facility], for which he still has some [...] on filedocumented in this encounter Care Teams Croze Machine Operator Relationship Specialty Start Date End Date Coni Lim MD [address] [place] [address] PCP - General 07/16/10 documented as of this encounter
--- OUTSIDE RECORDS SUMMARY | 2024-08-22 18:47 | XMS_ITS | Encounter Summary ---
Author Organization [facility] Address [facility] [place] [address] Care Team Providers Care Flame Degreaser Name Role Phone Coni Lim MD Primary Care Provider [phone] Encounter Details Date Type Department Care Team (Late st Contact Info) Description 11/26/2016 Telephone Cardiology at [address] [phone] Roque Paulson MD [facility] [place] [address] Social History Tobacco Use Types Packs/Day Years [...] Referring Provider: Dr. Kimball Patient Location: [facility] per OSH: 51 y/o old with cad [...] on filedocumented in this encounter Care Teams Flame Degreaser Relationship Specialty Start Date End Date Coni Lim MD [address] [place] [address] PCP - General 07/16/10 documented as of this encounter
--- OUTSIDE RECORDS SUMMARY | 2024-08-22 18:47 | XMS_ITS | Encounter Summary ---
Author Organization [place] [address] Care Team Providers Care Tanbark Laborer Name Role Phone Coni Lim MD Primary Care Provider [phone] Encounter Details Date Type Department Care Team (Late st Contact Info) Description 07/26/2015 Telephone Cardiology at [address] [phone] Destin Patel, RN Social History Tobacco Use [...] Kim Horvath is aware as the blinded utilities service investigator. I will follow up with him should it be necessary. documented in this encounter Plan of Treatment Not on file documented as of this encounter Visit Diagnoses Not on filedocumented in this encounter Care Teams Tanbark Laborer Relationship Specialty Start Date End Date Coni Lim MD [address] [place] [address] PCP - General 07/16/10 documented as of this encounter
--- OUTSIDE RECORDS SUMMARY | 2024-08-22 18:47 | XMS_ITS | Encounter Summary ---
Author Organization [facility] [place] [address] Care Team Providers Care Splash Line Operator Name Role Phone Coni Lim MD Primary Care Provider [phone] Encounter Details Date Type Department Care Team (Late st Contact Info) Description 11/26/2016 External Results [place] [address] Dwayne Gonzalez MD [address] [place] [id number] Social History Tobacco Use Types Packs/Day Years [...] on filedocumented in this encounter Care Teams Splash Line Operator Relationship Specialty Start Date End Date Coni Lim MD [address] [place], [place] [address] PCP - General 07/16/10 documented as of this encounter
--- OUTSIDE RECORDS SUMMARY | 2024-08-22 18:47 | XMS_ITS | Encounter Summary ---
Author Organization [facility] Address [facility] [place] [address] Care Team Providers Care Fabricator Special Items Name Role Phone Coni Lim MD Primary Care Provider [phone] Reason for Visit * Auth/Cert Specialty Diagnoses / Procedures Referred By Ruby garvin Referred To Contact Diagnoses Unstable angina [place] Referral ID Status Reason Start Date Expiration Date Visits Re quested Visits Authorized [id number] 1 1 Encounter Details Date Type Department Care Team (Latest Contact Info) Description 11/21/2016 7:58 PM EDT - 11/25/2016 11:04 AM EDT Hospital Encounter Inter[place] [id number] Valentín Oreilly MD Williams, Eric M, MD [facility] [place] [address] Unstable angina Discharge Disposition: Home Social History [...] Romeo Coelho Patient Age: 51 y.o. Language: Dutch Race: White Ethnicity: Not nor Admit date: 11/21/2016 Discharge date and time: 11/25/2016 Attending Physician: Roque Sanches MD Discharge Physician: Roque Sanches MD Follow-up Recommendations for Providers: 1. Admitted with unstable angina. Drug-eluting stent RCA. 2. Requires dual antiplatelet therapy for 1 year 3. Smoking cessation Inpatient Provider Contact Information: Keisha Rose APRN [facility] Provider # [id number] Discharge Diagnoses (Hospital Problems) and Secondary Diagnoses (Chronic Problems): Active Hospital Problems Diagnosis ??? Unstable angina ??? CAD (coronary artery disease) -Coronary Angio 07/29/2013: 65% (FFR 0.74) mid LAD lesion s/p PCI with 3.5 X 18 mm JACINDA - [facility] 2009 post abnormal nuc stress +IW, [...] stent restenosis addressed with LAD stentangioplasty at [facility] in January 2014), DM2, HTN, dyslipidemia, continued tobacco use, and obesity was transferred from [facility] to [facility] for further evaluation of unstable angina. Prior [...] PF, Split 07/30/2013 ??? Influenza Vaccine (Novel) [id number], Injectable 05/24/2009 ??? Influenza Vaccine w/Preservative, Split [...] one of the cardiology nurses at [facility] during normal business hours(Thursday through Thursday, 8 AM to 5 PM) at . During nonbusiness hours (evenings, nights, weekends, holidays), you may contact the operations inspector motors and controls tester at . Return to work: -unemployed Driving: -No driving for 48 hours after catheterization. Follow up Appointments: ?? PCP: Coni Lim MD will see you on November 28, 2016 at 2:45 PM at [facility]. You may contact her office at [phone] with any questions or concerns ?? Cardiology: Please see Dr. Ling in [place], [place] on December 16 at 11:00 AM. His office may be contacted at with any questions or concerns. Home oxygen therapy: N/A Arrangements for VNA/home care: none Discharge References/Attachments None Keisha Rose APRN Nurse Practitioner-Department of Cardiology [email or web address] Pager [phone] Phone number: [phone] Fax number [phone] I have discussed this patient with attending [...] one of the cardiology nurses at [facility] during normal business hours(Thursday through Thursday, 8 AM to 5 PM) at . During nonbusiness hours (evenings, nights, weekends, holidays), you may contact the operations inspector motors and controls tester at . Return to work: -unemployed Driving: -No driving for 48 hours after catheterization. Follow up Appointments: ?? PCP: Coni Lim MD will see you on November 28, 2016 at 2:45 PM at [facility]. You may contact her office at [phone] with any questions or concerns ?? Cardiology: Please see Dr. Ling in [place], [place] on December 16 at 11:00 AM. [...] Nicotine Replacement Therapy , November 23, 2012: https://www.federalregister.gov/articles//2013-49458/modificati amg-ei-rtystgrh-eo-mhyatznj-fvvkwiosfre-jfnrose-iocdscvp-lex-xbsl-opw-cqsaslt-hu man-use Nicotine lozenge instructions: Use the 4 [...] Nicotine Replacement Therapy , November 23, 2012: https://www.federalregister.gov/articles//2013-61962/modificati fwj-wi-rkbitqnk-gk-mffekhxy-vxjlxmyxyyq-lwzouak-mmoinans-lro-rqkd-cma-zzldeet-hu man-use Remember to cut down on regular coffee intake to no more than 2-3 eight ounce cups a day. Substitute decaf or herbal tea, water or any other non caffeine drink for regular coffee to avoid rising caffeine levels when you don't smoke. You have been referred to the [place] Quitline and should expect to receive a phone call from them within the next several days. If you do not hear from them within one week of discharge please call them.The number is in the [place] Tobacco Cessation folder you were given. Contact [...] Progress Note Patient Name: Romeo Coelho Service: FISH HATCHERY SUPERINTENDENT / PA Responsible Attending: Roque Sanches MD Reason for continued hospitalization: -discharge -smoking cessation consult Active Problems: Active Hospital Problems Diagnosis ??? Unstable angina ??? CAD (coronary artery disease) -Coronary Angio 07/29/2013: 65% (FFR 0.74) mid LAD lesion s/p PCI with 3.5 X 18 mm JACINDA - [facility] 2009 post abnormal nuc stress +IW, [...] priority for the procedure was Urgent. The [facility] indication for the procedure was PCI [...] restenosis addressed with LAD stent angioplasty at [facility] in January 2014, DM2, HTN, dyslipidemia, continued tobacco use, and obesity transferred to [facility] for further evaluation of unstable angina. Underwent Cardiac catheterization to day (11/24/16)-CI of RCA Comfortable overnight Smoking cessation consult Plan: 1. Unstable angina LAD and LCx disease defined at prior cardiac catheterizations (at [facility] and [facility]) Describes crescendo anginal symptoms which [...] Progress Note Patient Name: Romeo Coelho Service: FISH HATCHERY SUPERINTENDENT / PA Responsible Attending: Roque Sanches MD Reason for continued hospitalization: Evaluation and management of unstable angina; cardiac cath anticipated today (11/24/16) Active Problems: Active Hospital Problems Diagnosis ??? Unstable angina ??? CAD (coronary artery disease) -Coronary Angio 07/29/2013: 65% (FFR 0.74) mid LAD lesion s/p PCI with 3.5 X 18 mm JACINDA - [facility] 2009 post abnormal nuc stress +IW, [...] restenosis addressed with LAD stent angioplasty at [facility] in January 2014, DM2, HTN, dyslipidemia, continued tobacco use, and obesity transferred to [facility] for further evaluation of unstable angina. Cardiac catheterization today ( 7). Plan: 1. Unstable angina LAD and LCx disease defined at prior cardiac catheterizations (at [facility] and [facility]) Describes crescendo anginal symptoms which [...] Progress Note Patient Name: Romeo Coelho Service: FISH HATCHERY SUPERINTENDENT / PA Responsible Attending: Roque Sanches MD Reason for continued hospitalization: Evaluation and management of unstable angina Active Problems: Active Hospital Problems Diagnosis ??? Unstable angina ??? CAD (coronary artery disease) -Coronary Angio 07/29/2013: 65% (FFR 0.74) mid LAD lesion s/p PCI with 3.5 X 18 mm JACINDA - [facility] 2009 post abnormal nuc stress +IW, [...] restenosis addressed with LAD stent angioplasty at [facility] in January 2014, DM2, HTN, dyslipidemia, continued tobacco use, and obesity transferred to [facility] for further evaluation of unstable angina. Cardiac catheterization anticipated tomorrow AM (11/24/16). Plan: 1. Unstable angina LAD and LCx disease defined at prior cardiac catheterizations (at [facility] and [facility]) Describes crescendo anginal symptoms which [...] Progress Note Patient Name: Romeo Coelho Service: FISH HATCHERY SUPERINTENDENT / PA Responsible Attending: Roque Sanches MD Reason for continued hospitalization: Evaluation and management of unstable angina Active Problems: Active Hospital Problems Diagnosis ??? Unstable angina ??? CAD (coronary artery disease) -Coronary Angio 07/29/2013: 65% (FFR 0.74) mid LAD lesion s/p PCI with 3.5 X 18 mm JACINDA - [facility] 2009 post abnormal nuc stress +IW, [...] restenosis addressed with LAD stent angioplasty at [facility] in January 2014, DM2, HTN, dyslipidemia, continued tobacco use, and obesity transferred to [facility] for further evaluation of unstable angina. Cardiac catheterization anticipated soon. Plan: 1. Unstable angina LAD and LCx disease defined at prior cardiac catheterizations (at [facility] and [facility]) Describes crescendo anginal symptoms which [...] a 51 yr M ( Transferred from [facility]) PMH of CAD - multiple PCIs in past, latest cath in January 2014 ( at [facility] ) JACINDA x2 to LAD, prior instent [...] in ED. Symptoms reminiscent of his prior [place] / Unstable angina. Compliant with meds . [...] of Onset ??? Myocardial Infarction Father 46 [place], CABG ??? Diabetes Mother ??? Hypertension Mother [...] son (age 18 months), daughter 11 in [place], [place]. Takes care of his mother who has dementia and he takes her to dialysis. is disabled. Has grown daughter who is 29 years old. 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 Similar in character to prior [place] / UA; Nitrate responsive. ECG : nsr [...] in the outpatient cardiac rehabilitation program at [facility] was discussed. Patient agrees to a referral [...] of Onset ??? Myocardial Infarction Father 46 [place], CABG ??? Diabetes Mother ??? Hypertension Mother [...] brain. TREATMENT PLAN/RECOMMENDATIONS: [X ] Provide [facility] Tobacco Cessation Packet Discuss and prescribe (if [...] 8-end 1 mg PO BID Refer to [place] [employer]uit [employer] e-referral placed X Refer to [place] 802 Quits (fill out and fax enrollment [...] Follow up: with his PCP and the [place] quitline, 802QUITS Patient not ready to quit at this time. Follow up: X It is strongly recommended that the patient be discharged to home on Tobacco Treatment medication(s) as recommended above and follow up with either PCP and/or Quit line [id number]. X These recommendations have been discussed with the patient's primary team. DARCY STALEY APRN, [facility] Pager #[phone] [facility] Thoracic Surgery Time [...] the Past 30 Days: None at [facility], nor at outside hospitals, per pt's report. 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 I've been disabled for five years due to Fibromyalgia and Arthritis. Home Environment: Lives with his , Dasia in [place], [place]. Social & Family Supports/Community Resources: Dasia Coelho (Spouse) [address] [facility] [address] (H) [phone] (M) Behavioral Health History: Per pt report, [...] Coverage: Yes, has Silver Script. Preferred Pharmacy: [id number] - [place], [place] - [address] [place] [address] ? [address] [facility] [address] ? Not a 24 hour pharmacy; exact hours not known Other: None Primary Care Provider: Coni Lim MD [phone] Patient/Caregiver Goals of Treatment: To return home and to his normal activities. Potential Needs for Transition of Care: Rehab/SNF: Pt has never been a pt in a rehab setting. Home Health: [facility] in the past (after right knee surgery). DME: Cane at home (doesn't consistently use it). Dialysis: N/A Community Resources: None Transportation: I may need RCT transportation. My car is in [facility] parking lot. I havethe only set of keys. Other: None Anticipated Barriers to Discharge/Special Considerations: No barriers noted at this time. Plan: A member of the Care Management team will continue to monitor progress, follow for continuity of care and assist with transition of care planning. SON MARLEY RN Pager: [phone] * Plan of Care - Christy Medina [...] Radiograph today, Echo and Cardiac Enzymes Pending Loan Operations Specialist ? Thursday more likely Thursday (pt. Informed) [...] online chart. Telemetry Report: 757: Intermittent SA, AL 0.17, QRS 0.08, RR 0.75, QT 0.35, [...] ability. Romeo Coelho was offered copies of [facility] publications; Are You a Hospital Inpatient or Outpatient?and Medicare Rights and Protections. Notice has been signed along with date and time, a copy of notice made and given to patient/national sales representative. Original notice to be scanned [...] Procedure Name Priority Date/Time Associated Diagnosis Comments ACCOUNT MANAGER B2B SCAN 11/26/2016 12:00 AM EDT POCT GLUCOSE [...] 11/22/2016 12:11 PM EDT CARDIAC ENZYMES ([facility]) STAT 11/22/2016 10:06 AM EDT APTT Routine [...] Routine 11/23/19 3:58 AM EDT CARDIAC ENZYMES ([facility]) Routine 11/22/2016 3:58 AM EDT APTT STAT 11/22/2016 3:58 AM EDT CBC (WITH DIFF) Routine 11/22/2016 3:58 AM EDT LIPID PANEL (REFLEX DIRECT LDL) Routine 11/22/2016 3:58 AM EDT EKG 12-LEAD STAT 11/21/2016 8:34 PM EDT Unstable angina HEMOGRAM STAT 11/21/2016 8:32 PM EDT DIFFERENTIAL, AUTOMATED STAT 11/22/19 17 8:32 PM EDT CARDIAC ENZYMES ([facility]) STAT 11/21/2016 8:32 PM EDT APTT STAT [...] in this encounter Results * SCAN DOC: ACCOUNT MANAGER B2B (11/26/2016 12:00 AM EDT) Anatomical Region Laterality Modality Other Narrative 11/26/2016 12:00 AM EDT Ordered by an unspecified provider. Scanning Provider MEDIA MGR SCAN EXT O RDR/RSLT * POCT Glucose (11/25/2016 7:42 AM EDT) [facility] Signature Glucose, POC 123 65 - 199 mg/dL [facility] Comment: Supplemental ranges: <140 mg/dL before meals <180 mg/dL all other times of the day Blood specimen (specimen) 11/25/2016 7:42 AM EDT 11/25/2016 7:42 AM EDT Roque Sanches MD POINT OF CARE TEST O RDERABLES Performing Organization Address [facility] Co de Phone Number [facility] [place] [address] * EKG 12 Lead (11/25/2016 7:23 AM EDT) Ventricular rate 70 BPM MUSE SYSTEM Atrial Rate 70 BPM MUSE SYSTEM P-R Interval 140 ms MUSE SYSTEM QRS Duration 88 ms MUSE SYSTEM Q-T Interval 388 ms MUSE SYSTEM QTC Calculated (Bezet) 419 ms MUSE SYSTEM Calculated P [place] 3 degrees MUSE SYSTEM Calculated R [place] 19 degrees MUSE SYSTEM Calculated T [place] 42 degrees MUSE SYSTEM INTERPRETATION Normal sinus rhythm Normal ECG When compared with ECG of 24-NOV-2016 19:05, (unconfirmed) No significant change was found I personally reviewed the tracing and edited the fellows interpretation Confirmed by fellow MD Kalin, Nessa Lee ([id number]) on 11/25/2016 10:44:22 AM Confirmed by MD Meli, Tigre ([id number]) on 11/25/2016 5:24:33 PM MUSE SYSTEM 11/25/2016 7:23 AM EDT 11/25/2016 5:24 PM EDT Roque Sanches MD ECG ORDERABLES Performing Organization Address [facility] Co de Phone Number MUSE SYSTEM * Cardiac Enzymes (11/25/2016 4:52 AM EDT) Troponin-T <0.03 <=0.03 ng/mL [facility] Comment: 0.03 ng/mL: Represents the [...] consensus document of the Joint Society of Cardiology/[place] College of Cardiology Committee for the redefinition of myocardial infarction. ??Journal of the [place] College of Cardiology 2000; 36: 959-969] Creatine Kinase 139 0 - 200 unit/L [facility] Comment:result rechecked-sb Blood specimen (specimen) Venous Draw / Unknown 11/25/2016 4:52 AM EDT 11/25/2016 5:41 AM EDT Narrative Resulting Agency Comment Spec In Lab Roque Sanches MD CHEMISTRY ORDERABLES [facility] [place] [address] * Differential, Automated (11/25/2016 4:52 AM EDT) Neutrophil % 61.6 % [facility] Neutrophil Absolute 5.56 1.70 - 6.10 x10(3)/[facility] Lymph % 26.8 % [facility] Lymphocytes Abs 2.4 0.9 - 3.2 x10(3)/[facility] Monocyte % 6.3 % [facility] Monocyte Abs 0.6 0.3 - 0.9 x10(3)/[facility] Eos % 4.1 % [facility] Eosinophils Abs 0.4 0.0 - 0.4 x10(3)/[facility] Basophil % 0.8 % [facility] Baso Absolute 0.1 0.0 - 0.1 x10(3)/[facility] Immature Gran % 0.40 % [facility] Comment: Immature granulocytes(IG's)percentage and absolute count will include metamyelocytes, myelocytes, and promyelocytes. Blood smears from CBCs yielding IG's will be scanned manually for concordance. If this scan disagrees with the automated IG or if promyelocytes are noted, a manual differential will be performed. Immature Gran Absolute 0.04 0.00 - 0.04 x10(3)/mcL [facility] Blood specimen (specimen) 11/25/2016 4:52 AM EDT 11/25/2016 5:37 AM EDT Narrative Resulting Agency Comment Spec In Lab Roque Sanches MD HEMATOLOGY ORDERABLE S [facility] [place] [address] * (ABNORMAL) Hemogram (11/25/2016 4:52 AM EDT) White Blood Cell 9.0 4.0 - 9.5 x10(3)/mc L [facility] Red Blood Cell 5.04 4.58 - 5.54 x10(6)/mc L [facility] Hemoglobin 14.5 13.7 - 16.5 gm/dL [facility] Hematocrit 44.2 40.5 - 48.5 % [facility] Mean Cell Volume 87.7 82.9 - 93.1 fL [facility] Mean Cell Hemoglobin 28.8 27.5 - 32.1 pg [facility] Mean Cell Hemoglobin Concentration 32.8 32.0 - 35.7 gm/dL [facility] Platelet 214 145 - 357 x10(3)/ L [facility] RDW Standard Deviation 45.1(H) 36.0 - 45.0 [facility] RDW coefficient of variation 14.0(H) 11.4 - 13.8 % [facility] Mean Platelet Volume 11.1 7.6 - 12.9 [facility] NRBC% auto 0.0 % [facility] NRBC Absolute 0.000 0.000 - 0.000 x10(3)/ L [facility] Blood specimen (specimen) 11/25/2016 4:52 AM EDT 11/25/2016 5:37 AM EDT Narrative Resulting Agency Comment Spec In Lab Roque Sanches MD HEMATOLOGY ORDERABLE S [facility] [place] [address] * (ABNORMAL) BMP w/fasting Glucose (11/25/2016 4:52 AM EDT) Glucose Fasting 113(H) 65 - 99 mg/dL [facility] [...] of Diabetes Mellitus, Position Statement from the [place] Diabetes Association. ??Diabetes Care, Volume 33, Supplement 1, Aug 2009 Blood Urea Nitrogen 10 10 - 20 mg/dL [facility] Creatinine 0.87 0.80 - 1.50 mg/dL [facility] Comment: Please note that the pediatric reference intervals supplied above were not validated at [facility]. Results from pediatric patients should be interpreted in conjunction to the patient's age, height and muscle mass. Sodium 142 135 - 145 mmol/L [facility] Potassium 3.9 3.5 - 5.0 mmol/L [facility] Comment: Please note: ??Patients with WBC >100,000 may have falsely elevated Potassium levels. ??For accurate Potassium quantification in these patients send serum separator tube (gold top) for subsequent determinations. ??Contact the Clinical Chemistry Laboratory if there are any questions. Chloride 108(H) 98 - 107 mmol/L [facility] Carbon Dioxide 19(L) 22 - 31 mmol/L [facility] Anion Gap 15 5 - 15 mmol/L [facility] Calcium 9.5 8.5 - 10.5 mg/dL [facility] Est Glomerular Filtration Rate >60 >=60 [facility] Comment: This estimated GFR (eGFR) [...] the following links into your internet browser. [email or web address] Blood specimen (specimen) 11/25/2016 4:52 AM EDT 11/25/2016 5:37 AM EDT Narrative Resulting Agency Comment Spec In Lab Roque Sanches MD CHEMISTRY ORDERABLES Performing Organization Address [facility] Co de Phone Number [facility] [place] [address] * EKG 12 Lead (11/24/2016 7:05 PM EDT) Ventricular rate 85 BPM MUSE SYSTEM Atrial Rate 85 BPM MUSE SYSTEM P-R Interval 152 ms MUSE SYSTEM QRS Duration 86 ms MUSE SYSTEM Q-T Interval 354 ms MUSE SYSTEM QTC Calculated (Bezet) 421 ms MUSE SYSTEM Calculated P [place] 55 degrees MUSE SYSTEM Calculated R [place] 44 degrees MUSE SYSTEM Calculated T [place] 40 degrees MUSE SYSTEM INTERPRETATION Normal sinus rhythm Normal ECG When compared with ECG of 24-NOV-2016 07:20, No significant change was found Confirmed by Wale Mckeon MD ([id number]) on 11/25/2016 4:12:17 PM MUSE SYSTEM 11/24/2016 7:05 PM EDT 11/25/2016 4:12 PM EDT Roque Sanches MD ECG ORDERABLES Performing Organization Address City/[facility] Co de Phone Number MUSE SYSTEM * CARDIAC CATHETERIZATION (11/24/2016 6:04 PM EDT) Anatomical Region Laterality Modality Other Narrative 11/24/2016 6:23 PM EDT ?[facility] ? Cardiac Catheterization/Intervention Report ? Patient Name: Romeo Coelho A. ? Procedure Date: 11/24/2016 ? A #: [id number] ? Primary Physician: Atnon Horvath ? Case #: [id number] ? File Name: [id number] ? Catheterization Order Number: [id number] ? [facility] ? Final Report [place], [place] ? Patient Name: ? Romeo Coelho ? ID#: ?[id number] ? : ?1965 ? Procedure Date: ? November 24, 2016 ?Case #: ? [id number] ? Room: ? 6 ? Case Physician: [...] presented with: unstable angina (w/i 60 days). [place] ?Cardiovascular Society angina class was III. This [...] regimen was changed as ?follows: Continue terminal operations manager aspirin and plavix. ? Comments: ?Classic anginal [...] Anton Horvath MD - 11/25/[address] [facility] Cardiac Catheterization/Intervention Report Patient Name: Romeo Coelho Procedure Date: 11/24/2016 A #: [id number] Primary Physician: Anton Horvath Case #: [id number] File Name: [id number] Catheterization Order Number: [id number] [facility] FinalReport [place], [place] Patient Name: Romeo Coelho ID#:[id number] :1965 Procedure Date: November 24, 2016 Case #: [id number] Room: 6 Case Physician: Anton Horvath M.D. Start: 17:26 Fellow: Katia Quiroz M.D. Admission:11/24/2016 Referring Reid Churchill M.D. Physicians: Coni Lmi M.D. Procedures: * Coronary Angiography * Left [...] presented with: unstable angina (w/i 60 days). [place] Cardiovascular Society angina class was III. This [...] time was 8.0 minutes, dose area product [id number] mGYcm2 and air kerma was 1,689 mGY. [...] Glucose, POC 88 65 - 199 mg/dL [facility] Comment: Supplemental ranges: <140 mg/dL before meals <180 mg/dL all other times of the day Blood specimen (specimen) 11/24/2016 4:27 PM EDT 11/24/2016 4:27 PM EDT Roque Sanches MD POINT OF CARE TEST O RDERABLES [facility] [place] [address] * POCT Glucose (11/24/2016 11:56 AM EDT) Glucose, POC 110 65 - 199 mg/dL [facility] Comment: Supplemental ranges: <140 mg/dL before meals <180 mg/dL all other times of the day Blood specimen (specimen) 11/24/2016 11:56 AM EDT 11/24/2016 11:56 AM EDT Roque Sanches MD POINT OF CARE TEST O RDERABLES Performing Organization Address City/[facility]/ZIP Co de Phone Number [facility] [place] [address] * POCT Glucose (11/24/2016 7:43 AM EDT) Glucose, POC 131 65 - 199 mg/dL [facility] Comment: Supplemental ranges: <140 mg/dL before meals <180 mg/dL all other times of the day Blood specimen (specimen) 11/24/2016 7:43 AM EDT 11/24/2016 7:43 AM EDT Roque Sanches MD POINT OF CARE TEST O RDERABLES Performing Organization Address [facility] Co de Phone Number [facility] [place] [address] * EKG 12 Lead (11/24/2016 7:20 AM EDT) Ventricular rate 65 BPM MUSE SYSTEM Atrial Rate 65 BPM MUSE SYSTEM P-R Interval 158 ms MUSE SYSTEM QRS Duration 90 ms MUSE SYSTEM Q-T Interval 396 ms MUSE SYSTEM QTC Calculated (Bezet) 411 ms MUSE SYSTEM Calculated P [place] 51 degrees MUSE SYSTEM Calculated R [place] 26 degrees MUSE SYSTEM Calculated T [place] 24 degrees MUSE SYSTEM INTERPRETATION Normal sinus rhythm Normal ECG When compared with ECG of 23-NOV-2016 07:16, No significant change was found I personally reviewed the tracing and edited the fellows interpretation Confirmed by fellow MD Kalin, Nessa Lee ([id number]) on 11/24/2016 8:23:27 AM Confirmed by MD Margoth, Rajni ([id number]) on 11/24/2016 6:22:34 PM MUSE SYSTEM 11/24/2016 7:20 AM EDT 11/24/2016 6:22 PM EDT Roque Sanches MD ECG ORDERABLES Performing Organization Address City/[facility]/ZIP Co de Phone Number MUSE SYSTEM * (ABNORMAL) Differential, Automated (11/24/2016 6:20 AM EDT) Pathologist [facility] Neutrophil % 54.5 % [facility] Neutrophil Absolute 4.85 1.70 - 6.10 x10(3)/[facility] Lymph % 31.5 % [facility] Lymphocytes Abs 2.8 0.9 - 3.2 x10(3)/[facility] Monocyte % 8.1 % [facility] Monocyte Abs 0.7 0.3 - 0.9 x10(3)/[facility] Eos % 4.4 % [facility] Eosinophils Abs 0.4 0.0 - 0.4 x10(3)/[facility] Basophil % 0.9 % [facility] Baso Absolute 0.1 0.0 - 0.1 x10(3)/[facility] Immature Gran % 0.60 % [facility] Comment: Immature granulocytes(IG's)percentage and absolute count will include metamyelocytes, myelocytes, and promyelocytes. Blood smears from CBCs yielding IG's will be scanned manually for concordance. If this scan disagrees with the automated IG or if promyelocytes are noted, a manual differential will be performed. Immature Gran Absolute 0.05(H) 0.00 - 0.04 x10(3)/[facility] Blood specimen (specimen) 11/24/2016 6:20 AM EDT 11/24/2016 6:34 AM EDT Narrative Resulting Agency Comment Spec In Lab Drew Pepe MD HEMATOLOGY ORDERABLE S [facility] [place] [address] * (ABNORMAL) Hemogram (11/24/2016 6:20 AM EDT) Pathologist [facility] White Blood Cell 8.9 4.0 - 9.5 x10(3)/[facility] Red Blood Cell 4.93 4.58 - 5.54 x10(6)/ L [facility] Hemoglobin 14.7 13.7 - 16.5 gm/dL [facility] Hematocrit 43.2 40.5 - 48.5 % [facility] Mean Cell Volume 87.6 82.9 - 93.1 fL [facility] Mean Cell Hemoglobin 29.8 27.5 - 32.1 pg [facility] Mean Cell Hemoglobin Concentration 34.0 32.0 - 35.7 gm/dL [facility] Platelet 203 145 - 357 x10(3)/mc L [facility] RDW Standard Deviation 44.3 36.0 - 45.0 fL [facility] RDW coefficient of variation 13.9(H) 11.4 - 13.8 % [facility] Mean Platelet Volume 11.0 7.6 - 12.9 fL [facility] NRBC% auto 0.0 % [facility] NRBC Absolute 0.000 0.000 - 0.000 x10(3)/mc L [facility] Blood specimen (specimen) 11/24/2016 6:20 AM EDT 11/24/2016 6:34 AM EDT Narrative Resulting Agency Comment Spec In Lab Drew Pepe MD HEMATOLOGY ORDERABLE S [facility] [place] [address] * (ABNORMAL) APTT (11/24/2016 6:20 AM EDT) [facility] Partial Thromboplastin Time 110(H) 25 - 35 sec [facility] Comment: The recommended therapeutic range for full dose, unfractionated heparin at [facility] is 80 ? 114 seconds. The use of the anti-Xa (heparin) level rather than the PTT is recommended for monitoring anticoagulation intensity in critically ill patients receiving unfractionated heparin by continuous IV infusion. Blood specimen (specimen) 11/24/2016 6:20 AM EDT 11/24/2016 6:34 AM EDT Narrative Resulting Agency Comment Spec In Lab Drew Pepe MD HEMATOLOGY ORDERABLE S Performing Organization Address [facility] Co de Phone Number [facility] [place] [address] * (ABNORMAL) APTT (11/23/2016 11:27 PM EDT) Partial Thromboplastin Time 130(H) 25 - 35 sec [facility] Comment: The recommended therapeutic range for full dose, unfractionated heparin at [facility] is 80 ? 114 seconds. The use of the anti-Xa (heparin) level rather than the PTT is recommended for monitoring anticoagulation intensity in critically ill patients receiving unfractionated heparin by continuous IV infusion. Blood specimen (specimen) 11/23/2016 11:27 PM EDT 11/23/2016 11:30 PM EDT Narrative Resulting Agency Comment Spec In Lab Drew Pepe MD HEMATOLOGY ORDERABLE S Performing Organization Address [facility] Co de Phone Number [facility] [place] [address] * POCT Glucose (11/23/2016 7:36 PM EDT) Glucose, POC 131 65 - 199 mg/dL [facility] Comment: Supplemental ranges: <140 mg/dL before meals <180 mg/dL all other times of the day Blood specimen (specimen) 11/23/2016 7:36 PM EDT 11/23/2016 7:36 PM EDT Roque Sanches MD POINT OF CARE TEST O RDERABLES Performing Organization Address [facility] Co de Phone Number [facility] [place] [address] * POCT Glucose (11/23/2016 5:20 PM EDT) Glucose, POC 107 65 - 199 mg/dL [facility] Comment: Supplemental ranges: <140 mg/dL before meals <180 mg/dL all other times of the day Blood specimen (specimen) 11/23/2016 5:20 PM EDT 11/23/2016 5:20 PM EDT Roque Sanches MD POINT OF CARE TEST O RDERAAIRAM Performing Organization Address [facility]/ZIP Co de Phone Number [facility] [place] [address] * (ABNORMAL) APTT (11/23/2016 12:39 PM EDT) Partial Thromboplastin Time 68(H) 25 - 35 sec [facility] Comment: The recommended therapeutic range for full dose, unfractionated heparin at [facility] is 80 ? 114 seconds. The use of the anti-Xa (heparin) level rather than the PTT is recommended for monitoring anticoagulation intensity in critically ill patients receiving unfractionated heparin by continuous IV infusion. Blood specimen (specimen) 11/23/2016 12:39 PM EDT 11/23/2016 12:51 PM EDT Narrative Resulting Agency Comment Spec In Lab Roque Sanches MD HEMATOLOGY ORDERABLE S Performing Organization Address [facility] Co de Phone Number [facility] [place] [address] * POCT Glucose (11/23/2016 11:47 AM EDT) Glucose, POC 116 65 - 199 mg/dL [facility] Comment: Supplemental ranges: <140 mg/dL before meals <180 mg/dL all other times of the day Blood specimen (specimen) 11/23/2016 11:47 AM EDT 11/23/2016 11:47 AM EDT Roque Sanches MD POINT OF CARE TEST O RDERABLES Performing Organization Address [facility] Co de Phone Number [facility] [place] [address] * POCT Glucose (11/23/2016 7:36 AM EDT) Glucose, POC 122 65 - 199 mg/dL [facility] Comment: Supplemental ranges: <140 mg/dL before meals <180 mg/dL all other times of the day Blood specimen (specimen) 11/23/2016 7:36 AM EDT 11/23/2016 7:36 AM EDT Roque Sanches MD POINT OF CARE TEST O RDERABLES Performing Organization Address [facility] de Phone Number [facility] [place] [address] * EKG 12 Lead (11/23/2016 7:16 AM EDT) Ventricular rate 72 BPM MUSE SYSTEM Atrial Rate 72 BPM MUSE SYSTEM P-R Interval 158 ms MUSE SYSTEM QRS Duration 90 ms MUSE SYSTEM Q-T Interval 382 ms MUSE SYSTEM QTC Calculated (Bezet) 418 ms MUSE SYSTEM Calculated P [place] 47 degrees MUSE SYSTEM Calculated R [place] 28 degrees MUSE SYSTEM Calculated T [place] 32 degrees MUSE SYSTEM INTERPRETATION Normal sinus rhythm Normal ECG When compared with ECG of 22-NOV-2016 07:12, No significant change was found Confirmed by MD ANIVAL, DEBORAH ([id number]) on 11/23/2016 1:58:05 PM MUSE SYSTEM 11/23/2016 7:16 AM EDT 11/23/2016 1:58 PM EDT Roque Sanches MD ECG ORDERABLES Performing Organization Address [facility] de Phone Number MUSE SYSTEM * (ABNORMAL) BMP w/fasting Glucose (11/23/2016 6:24 AM EDT) Glucose Fasting 143(H) 65 - 99 mg/dL [facility] [...] of Diabetes Mellitus, Position Statement from the [place] [employer]. ??Diabetes Care, Volume 33, Supplement 1, Aug 2009 Blood Urea Nitrogen 10 10 - 20 mg/dL [facility] Creatinine 0.98 0.80 - 1.50 mg/dL [facility] Comment: Please note that the pediatric reference intervals supplied above were not validated at [facility]. Results from pediatric patients should be interpreted in conjunction to the patient's age, height and muscle mass. Sodium 142 135 - 145 mmol/L [facility] [...] 31 mmol/L [facility] Anion Gap 16(H) 5 - 15 mmol/L [facility] Calcium 9.6 8.5 - 10.5 mg/dL [facility] Est Glomerular Filtration Rate >60 >=60 [facility] Comment: This estimated GFR (eGFR) [...] the following links into your internet browser. [email or web address] Blood specimen (specimen) 11/23/2016 6:24 AM EDT 11/23/2016 6:32 AM EDT Narrative Resulting Agency Comment Spec In Lab Roque Sanches MD CHEMISTRY ORDERABLES Performing Organization Address [facility]/ZIP Co de Phone Number [facility] [place] [address] * (ABNORMAL) APTT (11/23/2016 6:24 AM EDT) Partial Thromboplastin Time 103(H) 25 - 35 sec [facility] Comment: The recommended therapeutic range for full dose, unfractionated heparin at [facility] is 80 ? 114 seconds. The use of the anti-Xa (heparin) level rather than the PTT is recommended for monitoring anticoagulation intensity in critically ill patients receiving unfractionated heparin by continuous IV infusion. Blood specimen (specimen) 11/23/2016 6:24 AM EDT 11/23/2016 6:32 AM EDT Narrative Resulting Agency Comment Spec In Lab Drew Pepe MD HEMATOLOGY ORDERABLE S Performing Organization Address [facility]/ZIP Co de Phone Number [facility] [place] [address] * Differential, Automated (11/23/2016 6:24 AM EDT) Neutrophil % 58.2 % [facility] Neutrophil Absolute 4.63 1.70 - 6.10 x10(3)/[facility] Lymph % 29.0 % [facility] Lymphocytes Abs 2.3 0.9 - 3.2 x10(3)/[facility] Monocyte % 7.3 % [facility] Monocyte Abs 0.6 0.3 - 0.9 x10(3)/[facility] Eos % 4.1 % [facility] Eosinophils Abs 0.3 0.0 - 0.4 x10(3)/[facility] Basophil % 1.0 % [facility] Baso Absolute 0.1 0.0 - 0.1 x10(3)/[facility] Immature Gran % 0.40 % [facility] Comment: Immature granulocytes(IG's)percentage and absolute count will include metamyelocytes, myelocytes, and promyelocytes. Blood smears from CBCs yielding IG's will be scanned manually for concordance. If this scan disagrees with the automated IG or if promyelocytes are noted, a manual differential will be performed. Immature Gran Absolute 0.03 0.00 - 0.04 x10(3)/mcL [facility] Blood specimen (specimen) 11/23/2016 6:24 AM EDT 11/23/2016 6:32 AM EDT Narrative Resulting Agency Comment Spec In Lab Drew Pepe MD HEMATOLOGY ORDERABLE S [facility] [place] [address] * (ABNORMAL) Hemogram (11/23/2016 6:24 AM EDT) White Blood Cell 8.0 4.0 - 9.5 x10(3)/mc L [facility] Red Blood Cell 5.00 4.58 - 5.54 x10(6)/mc L [facility] Hemoglobin 14.5 13.7 - 16.5 gm/dL [facility] Hematocrit 43.1 40.5 - 48.5 % [facility] Mean Cell Volume 86.2 82.9 - 93.1 fL [facility] Mean Cell Hemoglobin 29.0 27.5 - 32.1 pg [facility] Mean Cell Hemoglobin Concentration 33.6 32.0 - 35.7 gm/dL [facility] Platelet 207 145 - 357 x10(3)/mc L [facility] RDW Standard Deviation 44.5 36.0 - 45.0 fL [facility] RDW coefficient of variation 14.0(H) 11.4 - 13.8 % [facility] Mean Platelet Volume 10.4 7.6 - 12.9 fL [facility] NRBC% auto 0.0 % [facility] NRBC Absolute 0.000 0.000 - 0.000 x10(3)/mc L [facility] Blood specimen (specimen) 11/23/2016 6:24 AM EDT 11/23/2016 6:32 AM EDT Narrative Resulting Agency Comment Spec In Lab Drew Pepe MD HEMATOLOGY ORDERABLE S Performing Organization Address [facility]/ZIP Co de Phone Number [facility] [place] [address] * (ABNORMAL) APTT (11/23/2016 12:03 AM EDT) Partial Thromboplastin Time 116(H) 25 - 35 sec [facility] Comment: The recommended therapeutic range for full dose, unfractionated heparin at [facility] is 80 ? 114 seconds. The use of the anti-Xa (heparin) level rather than the PTT is recommended for monitoring anticoagulation intensity in critically ill patients receiving unfractionated heparin by continuous IV infusion. Blood specimen (specimen) 11/23/2016 12:03 AM EDT 11/23/2016 12:07 AM EDT Narrative Resulting Agency Comment Spec In Lab Drew Pepe MD HEMATOLOGY ORDERABLE S Performing Organization Address [facility] Co de Phone Number [facility] [place] [address] * POCT Glucose (11/22/2016 7:45 PM EDT) Glucose, POC 102 65 - 199 mg/dL [facility] Comment: Supplemental ranges: <140 mg/dL before meals <180 mg/dL all other times of the day Blood specimen (specimen) 11/22/2016 7:45 PM EDT 11/22/2016 7:45 PM EDT Roque Sanches MD POINT OF CARE TEST O RDERABLES Performing Organization Address [facility]/ZIP Co de Phone Number [facility] [place] [address] * Cardiac Enzymes (11/22/2016 5:11 PM EDT) [facility] Troponin-T <0.03 <=0.03 ng/mL [facility] Comment: 0.03 ng/mL: Represents the [...] consensus document of the Joint Society of Cardiology/[place] [employer] Committee for the redefinition of myocardial infarction. ??Journal of the [place] College of Cardiology 2000; 36: 959-969] Creatine Kinase 46 0 - 200 unit/L [facility] Blood specimen (specimen) 11/22/2016 5:11 PM EDT 11/22/2016 5:15 PM EDT Narrative Resulting Agency Comment Spec In Lab Roque Sanches MD CHEMISTRY ORDERABLES [facility] [place] [address] * (ABNORMAL) APTT (11/22/2016 5:11 PM EDT) [facility] Partial Thromboplastin Time 76(H) 25 - 35 sec [facility] Comment: The recommended therapeutic range for full dose, unfractionated heparin at [facility] is 80 ? 114 seconds. The use of the anti-Xa (heparin) level rather than the PTT is recommended for monitoring anticoagulation intensity in critically ill patients receiving unfractionated heparin by continuous IV infusion. Blood specimen (specimen) 11/22/2016 5:11 PM EDT 11/22/2016 5:15 PM EDT Narrative Resulting Agency Comment Spec In Lab Drew Pepe MD HEMATOLOGY ORDERABLE S Performing Organization Address [facility]/ZIP Co de Phone Number [facility] [place] [address] * POCT Glucose (11/22/2016 4:50 PM EDT) Glucose, POC 100 65 - 199 mg/dL [facility] Comment: Supplemental ranges: <140 mg/dL before meals <180 mg/dL all other times of the day Blood specimen (specimen) 11/22/2016 4:50 PM EDT 11/22/2016 4:50 PM EDT Roque Sanches MD POINT OF CARE TEST O RDERABLES Performing Organization Address [facility]/ZIP Co de Phone Number [facility] [place] [address] * ECHO COMPLETE W CONTRAST (11/22/2016 12:59 PM EDT) EF 60 [facility] SYSTEM Anatomical Region Laterality Modality Other 11/22/2016 Narrative 11/22/2016 1:38 PM EDT Procedure: ?Transthoracic Echocardiogram Patient: ?LAQUITA Pop ? (Age): 1965(51y) Med Rec#: ? [id number] ?Sex: ?M ? Site Loc: ? [facility] ?Ht / Wt: ??178(cm)/95(kg) Pt. Loc: ?Adult Floor ? BSA: ?2.13 Study Date: ?? 11/22/2016 ?Pt. Type: Inpatient Tape: ? Referring: Roque Sanches ([id number]) Reading: Roque Sanches ([id number]) Fire Watcher: Jorge A Street Diagnosis: *ICD-10-PCS Unstable angina (I20.0) CPT Codes: *Echo Full (80363) *Spectral Doppler (14443) *Color Doppler (97397) *Optison ([id number]) Rhythm: ? Sinus BP: ? 113/70 SUMMARY: [...] E-wave Vmax ?0.5 ?m/sec ? MV deceleration [id number] ?msec ? MV A-wave Vmax ?0.4 ?m/sec [...] ? Mid-Inferior ?Normal ? Mid-Inferoseptal ?Normal ? [place]-Septal ? Normal ? [place]-Anterior ? Normal ? [place]-Lateral ?Normal ? [place]-Inferior ? Normal ? [place]-Tip ?Normal ? This report has been electronically signed by: Roque Sanches M.D. ? 11/22/2016 13:38:29 Images reviewed and interpretation verified [facility] Procedure Note Roque Sanches MD - 11/22/2016 Procedure: Transthoracic Echocardiogram Patient: LAQUITA HARRIS(Age): 1965(51y) Med Rec#: [id number] Sex: M Site Loc: [facility] Ht / Wt: 178(cm)/95(kg) Pt. Loc: Adult Floor BSA: 2.13 Study Date: 11/22/2016 Pt. Type: Inpatient Tape: Referring: Roque Sanches ([id number]) Reading: Roque Sanches ([id number]) Fire Watcher: Jorge A Street Diagnosis: *ICD-10-PCS Unstable angina (I20.0) CPT Codes: *Echo Full (41528) *Spectral Doppler (33536) *Color Doppler (51385) *Optison ([id number]) Rhythm: Sinus BP: 113/70 SUMMARY: 1. The [...] MV E-wave Vmax 0.5 m/sec MV deceleration [id number] msec MV A-wave Vmax 0.4 m/sec MV [...] Hypokinetic Mid-Posterolateral Hypokinetic Mid-Inferior Normal Mid-Inferoseptal Normal [place]-Septal Normal [place]-Anterior Normal [place]-Lateral Normal [place]-Inferior Normal [place]-Tip Normal This report has been electronically signed by: Roque Sanches M.D. 11/22/2016 13:38:29 Images reviewed and interpretation verified [facility] Drew Pepe MD ECHO ORDERABLES * POCT Glucose (11/22/2016 12:11 PM EDT) Glucose, POC 94 65 - 199 mg/dL [facility] Comment: Supplemental ranges: <140 mg/dL before meals <180 mg/dL all other times of the day Blood specimen (specimen) 11/22/2016 12:11 PM EDT 11/22/2016 12:11 PM EDT Roque Sanches MD POINT OF CARE TEST O RDERABLES [facility] [place] [address] * Potassium (11/22/2016 10:06 AM EDT) Potassium 3.8 3.5 - 5.0 mmol/L [facility] [...] In Lab Drew Pepe MD CHEMISTRY ORDERABLES [facility] [place] [address] * Cardiac Enzymes (11/22/2016 10:06 AM EDT) Pathologist [facility] Troponin-T <0.03 <=0.03 ng/mL [facility] Comment: 0.03 ng/mL: Represents the [...] consensus document of the Joint Society of Cardiology/[place] [employer]iology Committee for the redefinition of myocardial infarction. ??Journal of the [place] College of Cardiology 2000; 36: 959-969] Creatine Kinase 48 0 - 200 unit/L [facility] Blood specimen (specimen) 11/22/2016 10:06 AM EDT 11/22/2016 10:16 AM EDT Narrative Resulting Agency Comment Spec In Lab Drew Pepe MD CHEMISTRY ORDERABLES Performing Organization Address [facility] Co de Phone Number [facility] [place] [address] * (ABNORMAL) APTT (11/22/2016 10:06 AM EDT) [facility] Signature Partial Thromboplastin Time 104(H) 25 - 35 sec [facility] Comment: The recommended therapeutic range for full dose, unfractionated heparin at [facility] is 80 ? 114 seconds. The use of the anti-Xa (heparin) level rather than the PTT is recommended for monitoring anticoagulation intensity in critically ill patients receiving unfractionated heparin by continuous IV infusion. Blood specimen (specimen) 11/22/2016 10:06 AM EDT 11/22/2016 10:16 AM EDT Narrative Resulting Agency Comment Spec In Lab Roque Sanches MD HEMATOLOGY ORDERABLE S Performing Organization Address [facility] Co de Phone Number [facility] [place] [address] * XR Chest PA & Lateral (Generic) [...] Glucose, POC 135 65 - 199 mg/dL [facility] Comment: Supplemental ranges: <140 mg/dL before meals <180 mg/dL all other times of the day Blood specimen (specimen) 11/22/2016 7:44 AM EDT 11/22/2016 7:44 AM EDT Roque Sanches MD POINT OF CARE TEST O RDERABLES Performing Organization Address [facility] Co de Phone Number [facility] [place] [address] * EKG 12 Lead (11/22/2016 7:12 AM EDT) Ventricular rate 74 BPM MUSE SYSTEM Atrial Rate 74 BPM MUSE SYSTEM P-R Interval 146 ms MUSE SYSTEM QRS Duration 92 ms MUSE SYSTEM Q-T Interval 382 ms MUSE SYSTEM QTC Calculated (Bezet) 424 ms MUSE SYSTEM Calculated P [place] 34 degrees MUSE SYSTEM Calculated R [place] 26 degrees MUSE SYSTEM Calculated T [place] 27 degrees MUSE SYSTEM INTERPRETATION Normal sinus rhythm Normal ECG When compared with ECG of 21-NOV-2016 20:34, (unconfirmed) No significant change was found Confirmed by MD Walton Douglas ([id number]) on 11/22/2016 10:51:21 AM MUSE SYSTEM 11/22/2016 7:12 AM EDT 11/22/2016 10:51 AM EDT Roque Sanches MD ECG ORDERABLES Performing Organization Address [facility] de Phone Number MUSE SYSTEM * (ABNORMAL) Lipid Panel (11/22/2016 3:58 AM EDT) Cholesterol, Total 125 <=239 mg/dL [facility] Triglyceride 171 <=199 mg/dL [facility] HDL Cholesterol 39(L) >=40 mg/dL [facility] LDL Cholesterol 52 <=190 mg/dL [facility] Cholesterol/HDL Ratio 3.2 ratio [facility] Lipid Interpretation See Note [facility] Comment: Lipid management should be guided by a patient? s ASCVD risk, goals and preferences. ACC/AHA Guidelines recommend high intensity statin if clinical ASCVD or LDL greater than or equal to 190 mg/dL. http://circ.ahajournals.org/content/early/.cir.2470399350.40181.7a Adults aged 40-75 with LDL 70-189 mg/dL should have their 10 year ASCVD risk estimated with the ACC/AHA ASCVD risk track and field coach http://tools.acc.org/LQNVO-Vmcw-Qflzmaqrm/ Statin should be discussed if risk greater [...] In Lab Roque Sanches MD CHEMISTRY ORDERABLES [facility] [address] * Cardiac Enzymes (11/22/2016 3:58 AM EDT) [facility] Troponin-T <0.03 <=0.03 ng/mL [facility] Comment: 0.03 ng/mL: Represents the [...] consensus document of the Joint Society of Cardiology/[place] College [employer] Cardiology Committee for the redefinition of myocardial infarction. ??Journal of the [place] College of Cardiology 2000; 36: 959-969] Creatine Kinase 50 0 - 200 unit/L [facility] Blood specimen (specimen) Venous Draw / Unknown 11/22/2016 3:58 AM EDT 11/22/2016 4:13 AM EDT Narrative Resulting Agency Comment Spec In Lab Roque Sanches MD CHEMISTRY ORDERABLES [facility] [place] [address] * Differential, Automated (11/22/2016 3:58 AM EDT) Neutrophil % 56.6 % [facility] Neutrophil Absolute 4.86 1.70 - 6.10 x10(3)/[facility] Lymph % 30.3 % [facility] Lymphocytes Abs 2.6 0.9 - 3.2 x10(3)/[facility] LABOR[facility]ORY Monocyte % 7.7 % [facility] Monocyte Abs 0.7 0.3 - 0.9 x10(3)/[facility] LABORATORY Eos % 4.5 % [facility] Eosinophils Abs 0.4 0.0 - 0.4 x10(3)/[facility] Basophil % 0.6 % [facility] Baso Absolute 0.0 0.0 - 0.1 x10(3)/[facility] LABORATORY Immature Gran % 0.30 % [facility] Comment: Immature granulocytes(IG's)percentage and absolute count will include metamyelocytes, myelocytes, and promyelocytes. Blood smears from CBCs yielding IG's will be scanned manually for concordance. If this scan disagrees with the automated IG or if promyelocytes are noted, a manual differential will be performed. Immature Gran Absolute 0.03 0.00 - 0.04 x10(3)/[facility] LABORATORY Blood specimen (specimen) 11/22/2016 3:58 AM EDT 11/22/2016 4:13 AM EDT Narrative Resulting Agency Comment Spec In Lab Roque Sanches MD HEMATOLOGY ORDERABLE S [facility] [place] [address] * (ABNORMAL) Hemogram (11/22/2016 3:58 AM EDT) White Blood Cell 8.6 4.0 - 9.5 x10(3)/[facility] LAB[facility] Red Blood Cell 4.80 4.58 - 5.54 x10(6)/[facility] Hemoglobin 13.8 13.7 - 16.5 gm/dL [facility] Hematocrit 41.9 40.5 - 48.5 % [facility] Mean Cell Volume 87.3 82.9 - 93.1 fL [facility] Mean Cell Hemoglobin 28.8 27.5 - 32.1 pg [facility] Mean Cell Hemoglobin Concentration 32.9 32.0 - 35.7 gm/dL [facility] Platelet 219 145 - 357 x10(3)/[facility] LAB[facility] RDW Standard Deviation 44.7 36.0 - 45.0 fL [facility] RDW coefficient of variation 14.0(H) 11.4 - 13.8 % [facility] Mean Platelet Volume 10.9 7.6 - 12.9 fL [facility] NRBC% auto 0.0 % [facility] NRBC Absolute 0.000 0.000 - 0.000 x10(3)/mc L [facility] Blood specimen (specimen) 11/22/2016 3:58 AM EDT 11/22/2016 4:13 AM EDT Narrative Resulting Agency Comment Spec In Lab Roque Sanches MD HEMATOLOGY ORDERABLE S [facility] [place] [address] * (ABNORMAL) BMP w/fasting Glucose (11/22/2016 3:58 AM EDT) Glucose Fasting 127(H) 65 - 99 mg/dL [facility] [...] of Diabetes Mellitus, Position Statement from the [place] Diabetes Association. ??Diabetes Care, Volume 33, Supplement 1, Aug 2009 Blood Urea Nitrogen 10 10 - 20 mg/dL [facility] Creatinine 0.85 0.80 - 1.50 mg/dL [facility] Comment: Please note that the pediatric reference intervals supplied above were not validated at [facility]. Results from pediatric patients should be interpreted in conjunction to the patient's age, height and muscle mass. Sodium 142 135 - 145 mmol/L [facility] Potassium 3.3(L) 3.5 - 5.0 mmol/L [facility] [...] - 15 mmol/L [facility] Calcium 8.8 8.5 - 10.5 mg/dL [facility] Est Glomerular Filtration Rate >60 >=60 [facility] Comment: This estimated GFR (eGFR) [...] the following links into your internet browser. [email or web address] Blood specimen (specimen) 11/22/2016 3:58 AM EDT 11/22/2016 4:13 AM EDT Narrative Resulting Agency Comment Spec In Lab Roque Sanches MD CHEMISTRY ORDERABLES [facility] [place] [address] * (ABNORMAL) APTT (11/22/2016 3:58 AM EDT) [facility] Partial Thromboplastin Time 44(H) 25 - 35 sec [facility] Comment: The recommended therapeutic range for full dose, unfractionated heparin at [facility] is 80 ? 114 seconds. The use of the anti-Xa (heparin) level rather than the PTT is recommended for monitoring anticoagulation intensity in critically ill patients receiving unfractionated heparin by continuous IV infusion. Blood specimen (specimen) 11/22/2016 3:58 AM EDT 11/22/2016 4:13 AM EDT Narrative Resulting Agency Comment Spec In Lab Drew Pepe MD HEMATOLOGY ORDERABLE S Performing Organization Address [facility] Co de Phone Number [facility] [place] [address] * EKG 12 Lead (11/21/2016 8:34 PM EDT) Ventricular rate 72 BPM MUSE SYSTEM Atrial Rate 72 BPM MUSE SYSTEM P-R Interval 138 ms MUSE SYSTEM QRS Duration 86 ms MUSE SYSTEM Q-T Interval 382 ms MUSE SYSTEM QTC Calculated (Bezet) 418 ms MUSE SYSTEM Calculated P [place] -2 degrees MUSE SYSTEM Calculated R [place] 16 degrees MUSE SYSTEM Calculated T [place] 16 degrees MUSE SYSTEM INTERPRETATION Normal sinus rhythm Normal ECG When compared with ECG of 30-JUL-2013 08:41, No significant change was found Confirmed by MD Anton, Asif (57) on 11/22/2016 10:49:32 AM MUSE SYSTEM 11/21/2016 8:34 PM EDT 11/22/2016 10:49 AM EDT Drew Pepe MD ECG ORDERABLES Performing Organization Address [facility] Co de Phone Number MUSE SYSTEM * Hemoglobin A1c (11/21/2016 8:32 PM EDT) Hemoglobin A1c 5.6 4.3 - 5.6 % [facility] [...] 1, [id number] Estimated Average Glucose 114 mg/dL [facility] Comment: eAG equivalents for HbA1c percentages: HbA1c(%) ?eAG(mg/dL) 6.0 ?126 6.5 ?140 7.0 ?154 7.5 ?169 8.0 ?183 8.5 ?197 9.0 ?212 9.5 ?226 10.0 ? 240 Limitations: The eAG calculation has not been validated on women, individuals below 18 years old and above 70 years old, and individuals with hemoglobinopathies. Additional resources are available on the ADA website: [email or web address] Ashok PIMENTEL, Abdulkadir J, Jamie R, et al. ??Translating the A1C assay into estimated average glucose values. ??Diabetes Care 2008:31(8):2647-0935. Blood specimen (specimen) Venous Draw / Unknown 11/21/2016 8:32 PM EDT 11/22/2016 12:39 AM EDT Narrative Resulting Agency Comment Spec In Lab Drew Pepe MD CHEMISTRY ORDERABLES Performing Organization Address [facility] Co de Phone Number [facility] [place] [address] * TSH (11/21/2016 8:32 PM EDT) Thyroid Stimulating Hormone 2.29 0.27 - 4.20 mcIU/mL [facility] Blood specimen (specimen) Venous Draw / Unknown 11/21/2016 8:32 PM EDT 11/21/2016 8:40 PM EDT Narrative Resulting Agency Comment Spec In Lab Drew Pepe MD CHEMISTRY ORDERABLES Performing Organization Address [facility] Co de Phone Number [facility] [place] [address] * (ABNORMAL) Differential, Automated (11/21/2016 8:32 PM EDT) Neutrophil % 38.3 % [facility] Neutrophil Absolute 3.02 1.70 - 6.10 x10(3)/[facility] LAB[facility] Lymph % 48.7 % [facility] Lymphocytes Abs 3.8(H) 0.9 - 3.2 x10(3)/[facility] Monocyte % 7.3 % [facility] Monocyte Abs 0.6 0.3 - 0.9 x10(3)/[facility] Eos % 4.4 % [facility] Eosinophils Abs 0.4 0.0 - 0.4 x10(3)/[facility] Basophil % 0.9 % [facility] Baso Absolute 0.1 0.0 - 0.1 x10(3)/[facility] LAB[facility] Immature Gran % 0.40 % [facility] Comment: Immature granulocytes(IG's)percentage and absolute count will include metamyelocytes, myelocytes, and promyelocytes. Blood smears from CBCs yielding IG's will be scanned manually for concordance. If this scan disagrees with the automated IG or if promyelocytes are noted, a manual differential will be performed. Immature Gran Absolute 0.03 0.00 - 0.04 x10(3)/[facility] LAB[facility] Blood specimen (specimen) 11/21/2016 8:32 PM EDT 11/21/2016 8:37 PM EDT Narrative Resulting Agency Comment Spec In Lab Drew Pepe MD HEMATOLOGY ORDERABLE S [facility] [place] [address] * Hemogram (11/21/2016 8:32 PM EDT) White Blood Cell 7.9 4.0 - 9.5 x10(3)/[facility] LABORATORY Red Blood Cell 4.64 4.58 - 5.54 x10(6)/[facility] LABORATORY Hemoglobin 13.9 13.7 - 16.5 gm/dL [facility] Hematocrit 40.6 40.5 - 48.5 % [facility] Mean Cell Volume 87.5 82.9 - 93.1 fL [facility] Mean Cell Hemoglobin 30.0 27.5 - 32.1 pg [facility] Mean Cell Hemoglobin Concentration 34.2 32.0 - 35.7 gm/dL [facility] Platelet 179 145 - 357 x10(3)/[facility] LABORATORY RDW Standard Deviation 44.3 36.0 - 45.0 [facility] LABORATORY RDW coefficient of variation 13.8 11.4 - 13.8 % [facility] Mean Platelet Volume 10.8 7.6 - 12.9 [facility] LAB[facility]ORY NRBC% auto 0.0 % [facility] NRBC Absolute 0.000 0.000 - 0.000 x10(3)/[facility] LABORATORY Blood specimen (specimen) 11/21/2016 8:32 PM EDT 11/21/2016 8:37 PM EDT Narrative Resulting Agency Comment Spec In Lab Drew Pepe MD HEMATOLOGY ORDERABLE S [facility] [place] [address] * Cardiac Enzymes (11/21/2016 8:32 PM EDT) Troponin-T <0.03 <=0.03 ng/mL [facility] Comment: 0.03 ng/mL: Represents the [...] consensus document of the Joint Society of Cardiology/[place] College [employer] Cardiology Committee for the redefinition of myocardial infarction. ??Journal of the [place] College of Cardiology 2000; 36: 959-969] Creatine Kinase 64 0 - 200 unit/L [facility] Blood specimen (specimen) 11/21/2016 8:32 PM EDT 11/21/2016 8:37 PM EDT Narrative Resulting Agency Comment Spec In Lab Drew Pepe MD CHEMISTRY ORDERABLES Performing Organization Address [facility] Co de Phone Number [facility] [place] [address] * APTT (11/21/2016 8:32 PM EDT) Partial Thromboplastin Time 32 25 - 35 sec [facility] Comment: The recommended therapeutic range for full dose, unfractionated heparin at [facility] is 80 ? 114 seconds. The use of the anti-Xa (heparin) level rather than the PTT is recommended for monitoring anticoagulation intensity in critically ill patients receiving unfractionated heparin by continuous IV infusion. Blood specimen (specimen) 11/21/2016 8:32 PM EDT 11/21/2016 8:37 PM EDT Narrative Resulting Agency Comment Spec In Lab Drew Pepe MD HEMATOLOGY ORDERABLE S Performing Organization Address [facility] Co de Phone Number [facility] [place] [address] * Prothrombin Time (11/21/2016 8:32 PM EDT) Prothrombin Time 14.0 12.0 - 15.0 sec [facility] Comment: An INR <2.0 [...] 1.0 0.9 - 1.1 [facility] Blood specimen (specimen) 11/21/2016 8:32 PM EDT 11/21/2016 8:37 PM EDT Narrative Resulting Agency Comment Spec In Lab Drew Pepe MD HEMATOLOGY ORDERABLE S Performing Organization Address [facility] Co de Phone Number [facility] [place] [address] * Hepatic Function Panel (11/21/2016 8:32 PM EDT) Protein, Total 6.8 6.1 - 8.0 gm/dL [facility] Albumin 4.0 3.2 - 5.2 gm/dL [facility] Aspartate Aminotransferase 15 0 - 39 unit/L [facility] Alanine Aminotransferase 9 0 - 55 unit/L [facility] Alkaline Phosphatase 43 40 - 120 unit/L [facility] Bilirubin, Total 0.2 0.2 - 1.3 mg/dL [facility] Bilirubin, Direct <0.1 0.0 - 0.3 mg/dL [facility] Blood specimen (specimen) 11/21/2016 8:32 PM EDT 11/21/2016 8:37 PM EDT Narrative Resulting Agency Comment Spec In Lab Drew Pepe MD CHEMISTRY ORDERABLES Performing Organization Address [facility] Co de Phone Number [facility] [place] [address] * (ABNORMAL) Basic Metabolic Panel (non-fasting) (11/21/2016 8:32 PM EDT) Glucose 84 65 - 199 mg/dL [facility] Comment:Diabetes: >=200 mg/d L plus symptoms Blood Urea Nitrogen 10 10 - 20 mg/dL [facility] Creatinine 0.95 0.80 - 1.50 mg/dL [facility] Comment: Please note that the pediatric reference intervals supplied above were not validated at [facility]. Results from pediatric patients should be interpreted in conjunction to the patient's age, height and muscle mass. Sodium 145 135 - 145 mmol/L [facility] Potassium 3.5 3.5 - 5.0 mmol/L [facility] Comment: Please note: ??Patients with WBC >100,000 may have falsely elevated Potassium levels. ??For accurate Potassium quantification in these patients send serum separator tube (gold top) for subsequent determinations. ??Contact the Clinical Chemistry Laboratory if there are any questions. Chloride 105 98 - 107 mmol/L [facility] Carbon Dioxide 19(L) 22 - 31 mmol/L [facility] Anion Gap 21(H) 5 - 15 mmol/L [facility] Calcium 9.2 8.5 - 10.5 mg/dL [facility] Est Glomerular Filtration Rate >60 >=60 [facility] Comment: This estimated GFR (eGFR) [...] the following links into your internet browser. [email or web address] Blood specimen (specimen) 11/21/2016 8:32 PM EDT 11/21/2016 8:37 PM EDT Narrative Resulting Agency Comment Spec In Lab Drew Pepe MD CHEMISTRY ORDERABLES [facility] [place] [address] * pro-Brain Natriuretic Peptide (11/21/2016 8:32 PM EDT) NT-proBNP 65 <=125 pg/mL [facility] Blood specimen (specimen) 11/21/2016 8:32 PM EDT 11/21/2016 8:37 PM EDT Narrative Resulting Agency Comment Spec In Lab Drew Pepe MD CHEMISTRY ORDERABLES [facility] [place] [address] * POCT Glucose (11/21/2016 8:12 PM EDT) Glucose, POC 80 65 - 199 mg/dL [facility] Comment: Supplemental ranges: <140 mg/dL before meals <180 mg/dL all other times of the day Blood specimen (specimen) 11/21/2016 8:12 PM EDT 11/21/2016 8:12 PM EDT Valentín Oreilly MD POINT OF CARE TEST ORDERABLES Performing Organization Address City/[facility]/ZIP Co de Phone Number [facility] [place] [address] documented in this encounter Visit Diagnoses Diagnosis Unstable angina- Primary Intermediate coronary syndrome Unstable angina Intermediate coronary syndrome DM (diabetes mellitus) Type II or unspecified type diabetes mellitus without mention of complication, not stated as uncontrolled CAD (coronary artery disease) Coronary atherosclerosis of unspecified type of vessel, [place] or graft HTN (hypertension) Unspecified essential hypertension [...] 1658 (Given - Provider: Esha Chen RN)181 ([facility] Hold - Provider: Admin Adt - Reason: Transfer to a Procedural area)1940 ([facility] Unhold - Provider: Admin Adt) buPROPion (WELLBUTRIN SR or ZYBAN) SR tablet 150 mg 150 mg, Oral, 2 TIMES DAILY, First dose on 11/22/16 at 0030, Until Discontinued, DO NOT CRUSH OR OPEN, Routine 0803 (Given - Provider: Esha Chen RN)2058 (Given - Provider: Christy Medina RN) 0814 (Given - Provider: Esha Chen RN)1811 ([facility] Hold - Provider: Admin Adt - Reason: Transfer to a Procedural area)1940 ([facility] Unhold - Provider: Admin Adt)2108 (Given - Provider: Venice Huffman RN) 0900 (Given - Provider: Venancio Bourgeois, VERO) clopidogrel (PLAVIX) tablet 75 mg 75 mg, Oral, DAILY, First dose on 11/22/16 at 0900, Until Discontinued, Routine 0804 (Given - Provider: Esha Chen RN) 0815 (Given - Provider: Esha Chen RN)181 ([facility] Hold - Provider: Admin Adt - Reason: Transfer to a Procedural area)1940 ([facility] Unhold - Provider: Admin [...] 0815 (Given - Provider: Esha Chen RN)1811 ([facility] Hold - Provider: Admin Adt - Reason: Transfer to a Procedural area)1940 ([facility] Unhold - Provider: Admin Adt)2107 [...] RN)1447 (Given - Provider: Esha Chen RN)1811 ([facility] Hold - Provider: Admin Adt - Reason: Transfer to a Procedural area)1940 ([facility] Unhold - Provider: Admin Adt) 0551 (Given - Provider: Venice Huffman, VERO) gabapentin (NEURONTIN) capsule 900 mg 900 mg, Oral, NIGHTLY, First dose on 11/22/16 at 0030, Until Discontinued, Routine 2058 (Given - Provider: Christy Medina RN) 1811 ([facility] Hold - Provider: Admin Adt - Reason: Transfer to a Procedural area)1940 ([facility] Unhold - Provider: Admin Adt)2142 [...] RN - Reason: Order parameters not met)181 ([facility] Hold - Provider: Admin Adt - Reason: Transfer to a Procedural area)1940 ([facility] Unhold - Provider: Admin Adt) 0730 (Not Given - Provider: Venancio Bourgeois RN - Reason: Order parameters not met) isosorbide mononitrate (IMDUR) CR tablet 120 mg 120 mg, Oral, DAILY, First dose on 11/22/16 at 0900, Until Discontinued, DO NOT CRUSH OR OPEN, Routine 0808 (Given - Provider: Esha Chen RN) 0815 (Given - Provider: Esah Chen RN)1811 ([facility] Hold - Provider: Admin Adt - Reason: Transfer to a Procedural area)1940 ([facility] Unhold - Provider: Admin Adt) 0858 (Given - Provider: Venancio Bourgeois RN) losartan (COZAAR) tablet 12.5 mg 12.5 mg, Oral, DAILY, First dose on 11/22/16 at 0900, Until Discontinued, Routine 0807 (Given - Provider: Esha Chen RN) 0816 (Given - Provider: Esha Chen RN)181 ([facility] Hold - Provider: Admin Adt - Reason: Transfer to a Procedural area)1940 ([facility] Unhold - Provider: Admin [...] 0816 (Given - Provider: Esha Chen RN)1811 ([facility] Hold - Provider: Admin Adt - Reason: Transfer to a Procedural area)1940 ([facility] Unhold - Provider: Admin Adt)2107 (Given - Provider: Venice Huffman, VERO) 899 (Given - Provider: Venancio Bourgeois, VERO) pantoprazole (PROTONIX) tablet 40 mg 40 mg, Oral, DAILY, First dose on 11/22/16 at 0900, Until Discontinued, DO NOT CRUSH OR OPEN, Routine 08 (Given - Provider: Esha Chen RN) 08 (Given - Provider: Esha Chen RN)1811 ([facility] Hold - Provider: Admin Adt - Reason: Transfer to a Procedural area)1940 ([facility] Unhold - Provider: Admin Adt) 900 (Given - Provider: Venancio Bourgeois, VERO) pramipexole (MIRAPEX) tablet 0.5 mg 0.5 mg, Oral, NIGHTLY, First dose on 11/22/16 at 0030, Until Discontinued, Routine 2058 (Given - Provider: Christy Medina RN) 1811 ([facility] Hold - Provider: Admin Adt - Reason: Transfer to a Procedural area)1940 ([facility] Unhold - Provider: Admin Adt)2107 [...] Patterson RN)0755 (New Bag - Provider: Esha Cehn RN)1723 (Rate/Dose Change - Provider: Esha Chen [...] Thu11/25/16 at 1305, Muscle spasms, Routine 1811 ([facility] Hold - Provider: Admin Adt - Reason: Transfer to a Procedural area)1940 ([facility] Unhold - Provider: Admin [...] duration of the active insulin., Routine 1811 ([facility] Hold - Provider: Admin Adt - Reason: Transfer to a Procedural area)1940 ([facility] Unhold - Provider: Admin [...] of the active insulin. , Routine 1811 ([facility] Hold - Provider: Admin Adt - Reason: Transfer to a Procedural area)1940 ([facility] Unhold - Provider: Admin [...] (Given - Provider: Esha Chen RN) 1811 ([facility] Hold - Provider: Admin Adt - Reason: Transfer to a Procedural area)1940 ([facility] Unhold - Provider: Admin [...] for discomfort with PIV insertion, Routine 1811 ([facility] Hold - Provider: Admin Adt - Reason: Transfer to a Procedural area)1940 ([facility] Unhold - Provider: Admin [...] last 24 to 72 hours., Routine 1811 ([facility] Hold - Provider: Admin Adt - Reason: Transfer to a Procedural area)1940 ([facility] Unhold - Provider: Admin [...] (Given - Provider: Esha Chen RN) 1811 ([facility] Hold - Provider: Admin Adt - Reason: Transfer to a Procedural area)1940 ([facility] Unhold - Provider: Admin Adt) sodium chloride 0.9 % flush 5-20 mL 5-20 mL, Intravenous, EVERY 1 MIN PRN, Starting on 11/22/16 at 0013, Until Thu11/25/16 at 1305, flush, Flush pertains to all indwelling lines. Flush per protocol found in the job aid using the link provided on this medication record., Routine 1811 ([facility] Hold - Provider: Admin Adt - Reason: Transfer to a Procedural area)1940 ([facility] Unhold - Provider: Admin [...] Routine documented in this encounter Care Teams Fabricator Special Items Relationship Specialty Start Date End Date Coni Lim MD [address] [place] [address] PCP - General 07/16/10 documented as of this encounter
--- OUTSIDE RECORDS SUMMARY | 2024-08-22 18:47 | XMS_ITS | Encounter Summary ---
Author Organization [facility] Address [facility] [place] [address] Care Team Providers Care Poultry Hatchery Laborer Name Role Phone Coni Lim MD Primary Care Provider [phone] Reason for Visit * Auth/Cert Specialty Diagnoses / Procedures Referred By Ruby garvin Referred To Contact Diagnoses Unstable angina [place] Referral ID Status Reason Start Date Expiration Date Visits Re quested Visits Authorized [id number] 1 1 Encounter Details Date Type Department Care Team (Late st Contact Info) Description 11/24/2016 2:40 PM EDT - 11/24/2016 3:40 PM EDT Surgery [place] [address] Anton Horvath MD [facility] [place] [address] CARDIAC CATHETERIZATION Social History Tobacco Use Types [...] Romeo Coelho Patient Age: 51 y.o. Language: Rwandan Race: White Ethnicity: Not nor Admit date: 11/21/2016 Discharge date and time: 11/25/2016 Attending Physician: Roque Sanches MD Discharge Physician: Roque Sanches MD Follow-up Recommendations for Providers: 1. Admitted with unstable angina. Drug-eluting stent RCA. 2. Requires dual antiplatelet therapy for 1 year 3. Smoking cessation Inpatient Provider Contact Information: Keisha Rose APRN [facility] Provider # [id number] Discharge Diagnoses (Hospital Problems) and Secondary Diagnoses (Chronic Problems): Active Hospital Problems Diagnosis ??? Unstable angina ??? CAD (coronary artery disease) -Coronary Angio 07/29/2013: 65% (FFR 0.74) mid LAD lesion s/p PCI with 3.5 X 18 mm JACINDA - [facility] 2009 post abnormal nuc stress [...] stent restenosis addressed with LAD stentangioplasty at [facility] in January 2014), DM2, HTN, dyslipidemia, continued tobacco use, and obesity was transferred from [facility] to [facility] for further evaluation of unstable angina. Prior [...] PF, Split 07/30/2013 ??? Influenza Vaccine (Novel) [id number], Injectable 05/24/2009 ??? Influenza Vaccine w/Preservative, Split [...] contact one of the cardiology nurses at [facility] during normal business hours(Thursday through Thursday, 8 AM to 5 PM) at . During nonbusiness hours (evenings, nights, weekends, holidays), you may contact the environmental protection specialist range technician at . Return to work: -unemployed Driving: -No driving for 48 hours after catheterization. Follow up Appointments: ?? PCP: Coni Lim MD will see you on November 28, 2016 at 2:45 PM at [facility]. You may contact her office at [phone] with any questions or concerns ?? Cardiology: Please see Dr. Ling in [place], [place] on December 16 at 11:00 AM. His office may be contacted at with any questions or concerns. Home oxygen therapy: N/A Arrangements for VNA/home care: none Discharge References/Attachments None Keisha Rose APRN Nurse Practitioner-Department of Cardiology [email or web address] Pager [phone] Phone number: [phone] Fax number [phone] I have discussed this patient with attending [...] contact one of the cardiology nurses at [facility] during normal business hours(Thursday through Thursday, 8 AM to 5 PM) at . During nonbusiness hours (evenings, nights, weekends, holidays), you may contact the environmental protection specialist range technician at . Return to work: -unemployed Driving: -No driving for 48 hours after catheterization. Follow up Appointments: ?? PCP: Coni Lim MD will see you on November 28, 2016 at 2:45 PM at [facility]. You may contact her office at [phone] with any questions or concerns ?? Cardiology: Please see Dr. Ling in [place], [place] on December 16 at 11:00 AM. [...] Nicotine Replacement Therapy , November 23, 2012: https://www.federalregister.gov/articles//2013-05792/modificati xhj-sf-sonkxmmy-yl-czdidfrq-rvtyodmdyzb-otsfqwq-iflwyngr-nzy-knyd-oyb-khapmma-hu man-use Nicotine lozenge instructions: Use the 4 [...] Nicotine Replacement Therapy , November 23, 2012: https://www.federalregister.gov/articles//2013-00183/modificati tab-fk-cabnnvjt-gf-qrkgexgp-gcorxhwbmcv-gqcplao-lyuwvvqp-bqv-hcgj-ifw-prsgwjf-hu man-use Remember to cut down on regular coffee intake to no more than 2-3 eight ounce cups a day. Substitute decaf or herbal tea, water or any other non caffeine drink for regular coffee to avoid rising caffeine levels when you don't smoke. You have been referred to the [place] Quitline and should expect to receive a phone call from them within the next several days. If you do not hear from them within one week of discharge please call them.The number is in the [place] Tobacco Cessation folder you were given. 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 Unstable angina ??? CAD (coronary artery disease) -Coronary Angio 07/29/2013: 65% (FFR 0.74) mid LAD lesion s/p PCI with 3.5 X 18 mm JACINDA - [facility] 2009 post abnormal nuc stress [...] for the procedure was Urgent. The [facility] indication for the procedure was [...] restenosis addressed with LAD stent angioplasty at [facility] in January 2014, DM2, HTN, dyslipidemia, continued tobacco use, and obesity transferred to [facility] for further evaluation of unstable angina. Underwent Cardiac catheterization to day (11/24/16)-CI of RCA Comfortable overnight Smoking cessation consult Plan: 1. Unstable angina LAD and LCx disease defined at prior cardiac catheterizations (at [facility] and [facility]) Describes crescendo anginal symptoms which [...] Progress Note Patient Name: Romeo Coelho Service: THERMIT WELDING MACHINE OPERATOR / PA Responsible Attending: Roque Sanches MD Reason for continued hospitalization: Evaluation and management of unstable angina; cardiac cath anticipated today (11/24/16) Active Problems: Active Hospital Problems Diagnosis ??? Unstable angina ??? CAD (coronary artery disease) -Coronary Angio 07/29/2013: 65% (FFR 0.74) mid LAD lesion s/p PCI with 3.5 X 18 mm JACINDA - [facility] 2009 post abnormal nuc stress [...] restenosis addressed with LAD stent angioplasty at [facility] in January 2014, DM2, HTN, dyslipidemia, continued tobacco use, and obesity transferred to [facility] for further evaluation of unstable angina. Cardiac catheterization today ( 7). Plan: 1. 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 Unstable angina ??? CAD (coronary artery disease) -Coronary Angio 07/29/2013: 65% (FFR 0.74) mid LAD lesion s/p PCI with 3.5 X 18 mm JACINDA - [facility] 2009 post abnormal nuc stress [...] restenosis addressed with LAD stent angioplasty at [facility] in January 2014, DM2, HTN, dyslipidemia, continued tobacco use, and obesity transferred to [facility] for further evaluation of unstable angina. Cardiac catheterization anticipated tomorrow AM (11/24/16). Plan: 1. 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 Unstable angina ??? CAD (coronary artery disease) -Coronary Angio 07/29/2013: 65% (FFR 0.74) mid LAD lesion s/p PCI with 3.5 X 18 mm JACINDA - [facility] 2009 post abnormal nuc stress [...] restenosis addressed with LAD stent angioplasty at [facility] in January 2014, DM2, HTN, dyslipidemia, continued tobacco use, and obesity transferred to [facility] for further evaluation of unstable angina. Cardiac catheterization anticipated soon. Plan: 1. Unstable angina LAD and LCx disease defined at prior cardiac catheterizations (at [facility] and [facility]) Describes crescendo anginal symptoms which [...] a 51 yr M ( Transferred from [facility]) PMH of CAD - multiple PCIs in [...] son (age 18 months), daughter 11 in [place], [place]. Takes care of his mother who has dementia and he takes her to dialysis. is disabled. Has grown daughter who is 29 years old. 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 REVIEW OF SYSTEMS: General ROS: No [...] lump left thigh, + bruise, no tenderness Neuro/FIRER GLOST KILN: AAO x 3, No evident deficits Skin/Integumentary: [...] in the outpatient cardiac rehabilitation program at [facility] was discussed. Patient agrees to a referral [...] his brain. TREATMENT PLAN/RECOMMENDATIONS: [X ] Provide [facility] Tobacco Cessation Packet Discuss and prescribe (if [...] 8-end 1 mg PO BID Refer to [place] [employer] e-referral placed X Refer to [place] 802 Quits (fill out and fax enrollment [...] Follow up: with his PCP and the [place] quitline, 802QUITS Patient not ready to quit at this time. Follow up: X It is strongly recommended that the patient be discharged to home on Tobacco Treatment medication(s) as recommended above and follow up with either PCP and/or Quit line [id number]. X These recommendations have been discussed with the patient's primary team. DARCY STALEY APRN, [facility] Pager #[phone] [facility] Thoracic Surgery Time [...] Within the Past 30 Days: None at [facility], nor at outside hospitals, per pt's report. 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 I've been disabled for five years due to Fibromyalgia and Arthritis. Home Environment: Lives with his , Dasia in [place], [place]. Social & Family Supports/Community Resources: Dasia Coelho (Spouse) [address] [place] [address] (H) [phone] (M) Behavioral Health History: Per pt report, [...] Coverage: Yes, has Silver Script. Preferred Pharmacy: [id number] - [place], [place] - [address] [place] [address] ? [address] [place] [id number] ? Not a 24 hour pharmacy; exact hours not known Other: None Primary Care Provider: Coni Lim MD [phone] Patient/Caregiver Goals of Treatment: To return home and to his normal activities. Potential Needs for Transition of Care: Rehab/SNF: Pt has never been a pt in a rehab setting. Home Health: [facility] in the past (after right knee surgery). DME: Cane at home (doesn't consistently use it). Dialysis: N/A Community Resources: None Transportation: I may need RCT transportation. My car is in [facility] parking lot. I havethe only set of keys. Other: None Anticipated Barriers to Discharge/Special Considerations: No barriers noted at this time. Plan: A member of the Care Management team will continue to monitor progress, follow for continuity of care and assist with transition of care planning. SON MARLEY RN Pager: [phone] * Plan of Care - Christy Medina [...] Radiograph today, Echo and Cardiac Enzymes Pending Commissioner Conservation Of Resources ? Thursday more likely Thursday (pt. Informed) [...] online chart. Telemetry Report: [id number]: Intermittent SA, LA 0.17, QRS 0.08, RR 0.75, QT 0.35, [...] ability. Romeo Weineroney was offered copies of [facility] publications; Are You a Hospital Inpatient or Outpatient?and Medicare Rights and Protections. Notice has been signed along with date and time, a copy of notice made and given to patient/apprenticeship training representative. Original notice to be scanned into patient's medical record. TIMBO Msaon * Plan of Care - Debbie Rubin [...] Procedure Name Priority Date/Time Associated Diagnosis Comments MICROBIOLOGY INSTRUCTOR SCAN 11/26/2016 12:00 AM EDT POCT GLUCOSE Routine 11/25/2016 7:42 AM EDT EKG 12-LEAD Routine 11/25/2016 7:23 AM EDT Unstable angina BMP W/FASTING GLUCOSE Routine 11/25/2016 4:52 AM EDT HEMOGRAM Routine 11/25/2016 4:52 AM EDT DIFFERENTIAL, AUTOMATED Routine 11/26/19 4:52 AM EDT CARDIAC ENZYMES ([facility]/CGP) Routine 11/25/2016 4:52 AM EDT CBC (WITH [...] Routine 11/22/2016 12:11 PM EDT CARDIAC ENZYMES ([facility]/CGP) STAT 11/22/2016 10:06 AM EDT APTT Routine [...] 11/23/19 17 3:58 AM EDT CARDIAC ENZYMES ([facility]/CGP) Routine 11/22/2016 3:58 AM EDT APTT STAT 11/22/2016 3:58 AM EDT CBC (WITH DIFF) Routine 11/22/2016 3:58 AM EDT LIPID PANEL (REFLEX DIRECT LDL) Routine 11/22/2016 3:58 AM EDT EKG 12-LEAD STAT 11/21/2016 8:34 PM EDT Unstable angina HEMOGRAM STAT 11/21/2016 8:32 PM EDT DIFFERENTIAL, AUTOMATED STAT 11/22/19 17 8:32 PM EDT CARDIAC ENZYMES ([facility]/CGP) STAT 11/21/2016 8:32 PM EDT APTT STAT [...] in this encounter Results * SCAN DOC: MICROBIOLOGY INSTRUCTOR (11/26/2016 12:00 AM EDT) Anatomical Region Laterality Modality Other Narrative 11/26/2016 12:00 AM EDT Ordered by an unspecified provider. Scanning Provider MEDIA MGR SCAN EXT O RDR/RSLT * POCT Glucose (11/25/2016 7:42 AM EDT) [facility] Glucose, POC 123 65 - 199 mg/dL [facility] Comment: Supplemental ranges: <140 mg/dL before meals <180 mg/dL all other times of the day Blood specimen (specimen) 11/25/2016 7:42 AM EDT 11/25/2016 7:42 AM EDT Roque Sanches MD POINT OF CARE TEST O RDERABLES Performing Organization Address [facility] Co de Phone Number [facility] [place] [address] * EKG 12 Lead (11/25/2016 7:23 AM EDT) Ventricular rate 70 BPM MUSE SYSTEM Atrial Rate 70 BPM MUSE SYSTEM P-R Interval 140 ms MUSE SYSTEM QRS Duration 88 ms MUSE SYSTEM Q-T Interval 388 ms MUSE SYSTEM QTC Calculated (Bezet) 419 ms MUSE SYSTEM Calculated P [place] 3 degrees MUSE SYSTEM Calculated R [place] 19 degrees MUSE SYSTEM Calculated T [place] 42 degrees MUSE SYSTEM INTERPRETATION Normal sinus rhythm Normal ECG When compared with ECG of 24-NOV-2016 19:05, (unconfirmed) No significant change was found I personally reviewed the tracing and edited the fellows interpretation Confirmed by fellow MD Kalin, Nessa Lee ([id number]) on 11/25/2016 10:44:22 AM Confirmed by MD Meli, Tigre ([id number]) on 11/25/2016 5:24:33 PM MUSE SYSTEM 11/25/2016 7:23 AM EDT 11/25/2016 5:24 PM EDT Roque Sanches MD ECG ORDERABLES Performing Organization Address [facility] Co de Phone Number MUSE SYSTEM [...] consensus document of the Joint Society of Cardiology/[place] College of Cardiology Committee for the redefinition of myocardial infarction. ??Journal of the [place] College of Cardiology 2000; 36: 959-969] Creatine Kinase 139 0 - 200 unit/L [facility] Comment:result rechecked-sb Blood specimen (specimen) Venous Draw / Unknown 11/25/2016 4:52 AM EDT 11/25/2016 5:41 AM EDT Narrative Resulting Agency Comment Spec In Lab Roque Sanches MD CHEMISTRY ORDERABLES [facility] [place] [address] * Differential, Automated (11/25/2016 4:52 AM EDT) Neutrophil % 61.6 % [facility] Neutrophil Absolute 5.56 1.70 - 6.10 x10(3)/[facility] Lymph % 26.8 % [facility] Lymphocytes Abs 2.4 0.9 - 3.2 x10(3)/[facility] Monocyte % 6.3 % [facility] Monocyte Abs 0.6 0.3 - 0.9 x10(3)/[facility] Eos % 4.1 % [facility] Eosinophils Abs 0.4 0.0 - 0.4 x10(3)/[facility] Basophil % 0.8 % [facility] Baso Absolute 0.1 0.0 - 0.1 x10(3)/[facility] Immature Gran % 0.40 % [facility] Comment: Immature granulocytes(IG's)percentage and absolute count will include metamyelocytes, myelocytes, and promyelocytes. Blood smears from CBCs yielding IG's will be scanned manually for concordance. If this scan disagrees with the automated IG or if promyelocytes are noted, a manual differential will be performed. Immature Gran Absolute 0.04 0.00 - 0.04 x10(3)/[facility] Blood specimen (specimen) 11/25/2016 4:52 AM EDT 11/25/2016 5:37 AM EDT Narrative Resulting Agency Comment Spec In Lab Roque Sanches MD HEMATOLOGY ORDERABLE S [facility] [place] [address] * (ABNORMAL) Hemogram (11/25/2016 4:52 AM EDT) White Blood Cell 9.0 4.0 - 9.5 x10(3)/[facility] Red Blood Cell 5.04 4.58 - 5.54 x10(6)/[facility] Hemoglobin 14.5 13.7 - 16.5 gm/dL [facility] Hematocrit 44.2 40.5 - 48.5 % [facility] Mean Cell Volume 87.7 82.9 - 93.1 [facility] Mean Cell Hemoglobin 28.8 27.5 - 32.1 pg [facility] Mean Cell Hemoglobin Concentration 32.8 32.0 - 35.7 gm/dL [facility] Platelet 214 145 - 357 x10(3)/[facility] RDW Standard Deviation 45.1(H) 36.0 - 45.0 [facility] RDW coefficient of variation 14.0(H) 11.4 - 13.8 % [facility] Mean Platelet Volume 11.1 7.6 - 12.9 [facility] NRBC% auto 0.0 % [facility] NRBC Absolute 0.000 0.000 - 0.000 x10(3)/[facility] Blood specimen (specimen) 11/25/2016 4:52 AM EDT 11/25/2016 5:37 AM EDT Narrative Resulting Agency Comment Spec In Lab Roque Sanches MD HEMATOLOGY ORDERABLE S [facility] [place] [address] * (ABNORMAL) BMP w/fasting Glucose (11/25/2016 4:52 [...] of Diabetes Mellitus, Position Statement from the [place] Diabetes Association. ??Diabetes Care, Volume 33, Supplement 1, Aug 2009 Blood Urea Nitrogen 10 10 - 20 mg/dL [facility] Creatinine 0.87 0.80 - 1.50 mg/dL [facility] Comment: Please note that the pediatric reference intervals supplied above were not validated at [facility]. Results from pediatric patients should be interpreted [...] LABORATORY Est Glomerular Filtration Rate >60 >=60 [facility] Comment: This estimated GFR (eGFR) [...] the following links into your internet browser. [email or web address] [email or web address]/[email or web address] Blood specimen (specimen) 11/25/2016 4:52 AM EDT 11/25/2016 5:37 AM EDT Narrative Resulting Agency Comment Spec In Lab Roque Sanches MD CHEMISTRY ORDERABLES Performing Organization Address [facility] Co de Phone Number [facility] [place] [phone] * EKG 12 Lead (11/24/2016 7:05 PM EDT) Ventricular rate 85 BPM MUSE SYSTEM Atrial Rate 85 BPM MUSE SYSTEM P-R Interval 152 ms MUSE SYSTEM QRS Duration 86 ms MUSE SYSTEM Q-T Interval 354 ms MUSE SYSTEM QTC Calculated (Bezet) 421 ms MUSE SYSTEM Calculated P [place] 55 degrees MUSE SYSTEM Calculated R [place] 44 degrees MUSE SYSTEM Calculated T [place] 40 degrees MUSE SYSTEM INTERPRETATION Normal sinus rhythm Normal ECG When compared with ECG of 24-NOV-2016 07:20, No significant change was found Confirmed by Wale Mckeon MD ([id number]) on 11/25/2016 4:12:17 PM MUSE SYSTEM 11/24/2016 7:05 PM EDT 11/25/2016 4:12 PM EDT Roque Sanches MD ECG ORDERABLES Performing Organization Address [facility] Co de Phone Number MUSE SYSTEM * CARDIAC CATHETERIZATION (11/24/2016 6:04 PM EDT) Anatomical Region Laterality Modality Other Narrative 11/24/2016 6:23 PM EDT ?[facility] ? Cardiac Catheterization/Intervention Report ? Patient Name: Romeo Coelho. ? Procedure Date: 11/24/2016 ? A #: [id number] ? Primary Physician: Alexandru, Anton T ? Case #: [id number] ? File Name: [id number] ? Catheterization Order Number: [id number] ? [facility] ? Final Report [place], [place] ? Patient Name: ? Romeo Coelho ? ID#: ?[id number] ? : ?1965 ? Procedure Date: ? November 24, 2016 ?Case #: ? [id number] ? Room: ? 6 ? Case Physician: [...] presented with: unstable angina (w/i 60 days). [place] ?Cardiovascular Society angina class was III. This [...] medical regimen was changed as ?follows: Continue intermediate manager aspirin and plavix. ? Comments: ?Classic [...] Procedure Note Anton Horvath MD - 11/25/2016 [facility] Cardiac Catheterization/Intervention Report Patient Name: Romeo Coelho Procedure Date: 11/24/2016 A #: [id number] Primary Physician: Anton Horvath Case #: [id number] File Name: [id number] Catheterization Order Number: [id number] [facility] FinalReport [place], [place] Patient Name: Romeo Coelho ID#:[id number] :1965 Procedure Date: November 24, 2016 Case [...] presented with: unstable angina (w/i 60 days). [place] Cardiovascular Society angina class was III. This [...] time was 8.0 minutes, dose area product [id number] mGYcm2 and air kerma was 1,689 mGY. [...] medical regimen was changed as follows: Continue jail aspirin and plavix. Comments: Classic anginal symptoms [...] TEST O RDERABLES [facility] [place] [address] * POCT Glucose (11/24/2016 11:56 AM EDT) Glucose, POC 110 65 - 199 mg/dL [facility] Comment: Supplemental ranges: <140 mg/dL before meals <180 mg/dL all other times of the day Blood specimen (specimen) 11/24/2016 11:56 AM EDT 11/24/2016 11:56 AM EDT Roque Sanches MD POINT OF CARE TEST O RDERAAIRAM Performing Organization Address [facility] Co de Phone Number [facility] [place] [address] * POCT Glucose (11/24/2016 7:43 AM EDT) Glucose, POC 131 65 - 199 mg/dL [facility] Comment: Supplemental ranges: <140 mg/dL before meals <180 mg/dL all other times of the day Blood specimen (specimen) 11/24/2016 7:43 AM EDT 11/24/2016 7:43 AM EDT Roque Sanches MD POINT OF CARE TEST O RDERAAIRAM Performing Organization Address [facility] Co de Phone Number [facility] [place] [address] * EKG 12 Lead (11/24/2016 7:20 AM EDT) Ventricular rate 65 BPM MUSE SYSTEM Atrial Rate 65 BPM MUSE SYSTEM P-R Interval 158 ms MUSE SYSTEM QRS Duration 90 ms MUSE SYSTEM Q-T Interval 396 ms MUSE SYSTEM QTC Calculated (Bezet) 411 ms MUSE SYSTEM Calculated P [place] 51 degrees MUSE SYSTEM Calculated R [place] 26 degrees MUSE SYSTEM Calculated T [place] 24 degrees MUSE SYSTEM INTERPRETATION Normal sinus rhythm Normal ECG When compared with ECG of 23-NOV-2016 07:16, No significant change was found I personally reviewed the tracing and edited the fellows interpretation Confirmed by fellow MD Kalin, Nessa Lee ([id number]) on 11/24/2016 8:23:27 AM Confirmed by MD Margoth, Rajni ([id number]) on 11/24/2016 6:22:34 PM MUSE SYSTEM 11/24/2016 7:20 AM EDT 11/24/2016 6:22 PM EDT Roque Sanches MD ECG ORDERABLES Performing Organization Address [facility] Co de Phone Number MUSE SYSTEM * (ABNORMAL) Differential, Automated (11/24/2016 6:20 AM EDT) Neutrophil % 54.5 % [facility] Neutrophil Absolute 4.85 1.70 - 6.10 x10(3)/[facility] Lymph % 31.5 % [facility] Lymphocytes Abs 2.8 0.9 - 3.2 x10(3)/[facility] LABOR[facility]ORY Monocyte % 8.1 % [facility] Monocyte Abs 0.7 0.3 - 0.9 x10(3)/[facility] LABOR[facility]ORY Eos % 4.4 % [facility] Eosinophils Abs 0.4 0.0 - 0.4 x10(3)/[facility] LABORATORY Basophil % 0.9 % [facility] Baso Absolute 0.1 0.0 - 0.1 x10(3)/[facility] LABORATORY Immature Gran % 0.60 % [facility] Comment: Immature granulocytes(IG's)percentage and absolute count will include metamyelocytes, myelocytes, and promyelocytes. Blood smears from CBCs yielding IG's will be scanned manually for concordance. If this scan disagrees with the automated IG or if promyelocytes are noted, a manual differential will be performed. Immature Gran Absolute 0.05(H) 0.00 - 0.04 x10(3)/[facility] LABORATORY Blood specimen (specimen) 11/24/2016 6:20 AM EDT 11/24/2016 6:34 AM EDT Narrative Resulting Agency Comment Spec In Lab Drew Pepe MD HEMATOLOGY ORDERABLE S [facility] [place] [address] * (ABNORMAL) Hemogram (11/24/2016 6:20 AM EDT) White Blood Cell 8.9 4.0 - 9.5 x10(3)/[facility]ORATORY Red Blood Cell 4.93 4.58 - 5.54 x10(6)/[facility] Hemoglobin 14.7 13.7 - 16.5 [...] [facility] NRBC% auto 0.0 % [facility] NRBC Absolute 0.000 0.000 - 0.000 x10(3)/mc L [facility] Blood specimen (specimen) 11/24/2016 6:20 AM EDT 11/24/2016 6:34 AM EDT Narrative Resulting Agency Comment Spec In Lab Drew Pepe MD HEMATOLOGY ORDERABLE S [facility] [place] [address] * (ABNORMAL) APTT (11/24/2016 6:20 AM EDT) [facility] Partial Thromboplastin Time 110(H) 25 - 35 sec [facility] Comment: The recommended therapeutic range for full dose, unfractionated heparin at [facility] is 80 ? 114 seconds. The use of the anti-Xa (heparin) level rather than the PTT is recommended for monitoring anticoagulation intensity in critically ill patients receiving unfractionated heparin by continuous IV infusion. Blood specimen (specimen) 11/24/2016 6:20 AM EDT 11/24/2016 6:34 AM EDT Narrative Resulting Agency Comment Spec In Lab Drew Pepe MD HEMATOLOGY ORDERABLE S Performing Organization Address [facility] Co de Phone Number [facility] [place] [address] * (ABNORMAL) APTT (11/23/2016 11:27 PM EDT) Partial Thromboplastin Time 130(H) 25 - 35 sec [facility] Comment: The recommended therapeutic range for full dose, unfractionated heparin at [facility] is 80 ? 114 seconds. The use of the anti-Xa (heparin) level rather than the PTT is recommended for monitoring anticoagulation intensity in critically ill patients receiving unfractionated heparin by continuous IV infusion. Blood specimen (specimen) 11/23/2016 11:27 PM EDT 11/23/2016 11:30 PM EDT Narrative Resulting Agency Comment Spec In Lab Drew Pepe MD HEMATOLOGY ORDERABLE S Performing Organization Address [facility] Co de Phone Number [facility] [place] [address] * POCT Glucose (11/23/2016 7:36 PM EDT) Glucose, POC 131 65 - 199 mg/dL [facility] Comment: Supplemental ranges: <140 mg/dL before meals <180 mg/dL all other times of the day Blood specimen (specimen) 11/23/2016 7:36 PM EDT 11/23/2016 7:36 PM EDT Roque Sanches MD POINT OF CARE TEST O RDERABLES Performing Organization Address [facility]/ZIP Co de Phone Number [facility] [place] [address] * POCT Glucose (11/23/2016 5:20 PM EDT) Glucose, POC 107 65 - 199 mg/dL [facility] Comment: Supplemental ranges: <140 mg/dL before meals <180 mg/dL all other times of the day Blood specimen (specimen) 11/23/2016 5:20 PM EDT 11/23/2016 5:20 PM EDT Roque Sanches MD POINT OF CARE TEST O EVITA Performing Organization Address [facility] Co de Phone Number [facility] [place] [address] * (ABNORMAL) APTT (11/23/2016 12:39 PM EDT) Partial Thromboplastin Time 68(H) 25 - 35 sec [facility] Comment: The recommended therapeutic range for full dose, unfractionated heparin at [facility] is 80 ? 114 seconds. The use of the anti-Xa (heparin) level rather than the PTT is recommended for monitoring anticoagulation intensity in critically ill patients receiving unfractionated heparin by continuous IV infusion. Blood specimen (specimen) 11/23/2016 12:39 PM EDT 11/23/2016 12:51 PM EDT Narrative Resulting Agency Comment Spec In Lab Roque Sanches MD HEMATOLOGY ORDERABLE S Performing Organization Address [facility] de Phone Number [facility] [place] [address] * POCT Glucose (11/23/2016 11:47 AM EDT) Glucose, POC 116 65 - 199 mg/dL [facility] Comment: Supplemental ranges: <140 mg/dL before meals <180 mg/dL all other times of the day Blood specimen (specimen) 11/23/2016 11:47 AM EDT 11/23/2016 11:47 AM EDT Roque Sanches MD POINT OF CARE TEST O EVITA Performing Organization Address [facility] Co de Phone Number [facility] [place] [address] * POCT Glucose (11/23/2016 7:36 AM EDT) Glucose, POC 122 65 - 199 mg/dL [facility] Comment: Supplemental ranges: <140 mg/dL before meals <180 mg/dL all other times of the day Blood specimen (specimen) 11/23/2016 7:36 AM EDT 11/23/2016 7:36 AM EDT Roque Sanches MD POINT OF CARE TEST O RDERABLES Performing Organization Address [facility] de Phone Number [facility] [place] [address] * EKG 12 Lead (11/23/2016 7:16 AM EDT) Ventricular rate 72 BPM MUSE SYSTEM Atrial Rate 72 BPM MUSE SYSTEM P-R Interval 158 ms MUSE SYSTEM QRS Duration 90 ms MUSE SYSTEM Q-T Interval 382 ms MUSE SYSTEM QTC Calculated (Bezet) 418 ms MUSE SYSTEM Calculated P [place] 47 degrees MUSE SYSTEM Calculated R [place] 28 degrees MUSE SYSTEM Calculated T [place] 32 degrees MUSE SYSTEM INTERPRETATION Normal sinus rhythm Normal ECG When compared with ECG of 22-NOV-2016 07:12, No significant change was found Confirmed by MD ANIVAL, DEBORAH ([id number]) on 11/23/2016 1:58:05 PM MUSE SYSTEM 11/23/2016 7:16 AM EDT 11/23/2016 1:58 PM EDT Roque Sanches MD ECG ORDERABLES Performing Organization Address [facility] de Phone Number MUSE [...] of Diabetes Mellitus, Position Statement from the [place] [employer]. ??Diabetes Care, Volume 33, Supplement 1, Aug 2009 Blood Urea Nitrogen 10 10 - 20 mg/dL [facility] Creatinine 0.98 0.80 - 1.50 mg/dL [facility] Comment: Please note that the pediatric reference intervals supplied above were not validated at [facility]. Results from pediatric patients should be interpreted [...] LABORATORY Est Glomerular Filtration Rate >60 >=60 [facility] Comment: This estimated GFR (eGFR) [...] the following links into your internet browser. [email or web address] Blood specimen (specimen) 11/23/2016 6:24 AM EDT 11/23/2016 6:32 AM EDT Narrative Resulting Agency Comment Spec In Lab Roque Sanches MD CHEMISTRY ORDERABLES Performing Organization Address City/[facility]/ZIP Co de Phone Number [facility] [place] [address] * (ABNORMAL) APTT (11/23/2016 6:24 AM EDT) [facility] Partial Thromboplastin Time 103(H) 25 - 35 sec [facility] Comment: The recommended therapeutic range for full dose, unfractionated heparin at [facility] is 80 ? 114 seconds. The use of the anti-Xa (heparin) level rather than the PTT is recommended for monitoring anticoagulation intensity in critically ill patients receiving unfractionated heparin by continuous IV infusion. Blood specimen (specimen) 11/23/2016 6:24 AM EDT 11/23/2016 6:32 AM EDT Narrative Resulting Agency Comment Spec In Lab Drew Pepe MD HEMATOLOGY ORDERABLE S Performing Organization Address [facility]/ZIP Co de Phone Number [facility] [place] [address] * Differential, Automated (11/23/2016 6:24 AM EDT) [facility] Neutrophil % 58.2 % [facility] Neutrophil Absolute 4.63 1.70 - 6.10 x10(3)/[facility] LABORATORY Lymph % 29.0 % [facility] Lymphocytes Abs 2.3 0.9 - 3.2 x10(3)/[facility] LABORATORY Monocyte % 7.3 % [facility] Monocyte Abs 0.6 0.3 - 0.9 x10(3)/[facility] LABORATORY Eos % 4.1 % [facility] Eosinophils Abs 0.3 0.0 - 0.4 x10(3)/[facility] LABORATORY Basophil % 1.0 % [facility] Baso Absolute 0.1 0.0 - 0.1 x10(3)/[facility] LABORATORY Immature Gran % 0.40 % [facility] [...] HEMATOLOGY ORDERABLE S [facility] [place] [address] * (ABNORMAL) Hemogram (11/23/2016 6:24 AM EDT) [...] RDW Standard Deviation 44.5 36.0 - 45.0 [facility] LABORATORY RDW coefficient of variation 14.0(H) 11.4 - 13.8 % [facility] Mean Platelet Volume 10.4 7.6 - 12.9 fL [facility] NRBC% auto 0.0 % [facility] NRBC Absolute 0.000 0.000 - 0.000 x10(3)/mc L [facility] Blood specimen (specimen) 11/23/2016 6:24 AM EDT 11/23/2016 6:32 AM EDT Narrative Resulting Agency Comment Spec In Lab Drew Pepe MD HEMATOLOGY ORDERABLE S Performing Organization Address [facility]/ZIP Co de Phone Number [facility] [place] [address] * (ABNORMAL) APTT (11/23/2016 12:03 AM EDT) Partial Thromboplastin Time 116(H) 25 - 35 sec [facility] Comment: The recommended therapeutic range for full dose, unfractionated heparin at [facility] is 80 ? 114 seconds. The use of the anti-Xa (heparin) level rather than the PTT is recommended for monitoring anticoagulation intensity in critically ill patients receiving unfractionated heparin by continuous IV infusion. Blood specimen (specimen) 11/23/2016 12:03 AM EDT 11/23/2016 12:07 AM EDT Narrative Resulting Agency Comment Spec In Lab Drew Pepe MD HEMATOLOGY ORDERABLE S Performing Organization Address [facility] Co de Phone Number [facility] [place] [address] * POCT Glucose (11/22/2016 7:45 PM EDT) Glucose, POC 102 65 - 199 mg/dL [facility] Comment: Supplemental ranges: <140 mg/dL before meals <180 mg/dL all other times of the day Blood specimen (specimen) 11/22/2016 7:45 PM EDT 11/22/2016 7:45 PM EDT Roque Sanches MD POINT OF CARE TEST O RDERABLES Performing Organization Address [facility] Co de Phone Number [facility] [place] [address] * Cardiac Enzymes (11/22/2016 5:11 PM EDT) [facility] Troponin-T <0.03 <=0.03 ng/mL [facility] [...] consensus document of the Joint Society of Cardiology/[place] [employer] Card[employer] Committee for the redefinition of myocardial infarction. ??Journal of the [place] College of Cardiology 2000; 36: 959-969] Creatine Kinase 46 0 - 200 unit/L [facility] Blood specimen (specimen) 11/22/2016 5:11 PM EDT 11/22/2016 5:15 PM EDT Narrative Resulting Agency Comment Spec In Lab Roque Sanches MD CHEMISTRY ORDERABLES [facility] [place] [address] * (ABNORMAL) APTT (11/22/2016 5:11 PM EDT) [facility] Partial Thromboplastin Time 76(H) 25 - 35 sec [facility] Comment: The recommended therapeutic range for full dose, unfractionated heparin at [facility] is 80 ? 114 seconds. The use of the anti-Xa (heparin) level rather than the PTT is recommended for monitoring anticoagulation intensity in critically ill patients receiving unfractionated heparin by continuous IV infusion. Blood specimen (specimen) 11/22/2016 5:11 PM EDT 11/22/2016 5:15 PM EDT Narrative Resulting Agency Comment Spec In Lab Drew Pepe MD HEMATOLOGY ORDERABLE S Performing Organization Address [facility] Co de Phone Number [facility] [place] [address] * POCT Glucose (11/22/2016 4:50 PM EDT) Glucose, POC 100 65 - 199 mg/dL [facility] Comment: Supplemental ranges: <140 mg/dL before meals <180 mg/dL all other times of the day Blood specimen (specimen) 11/22/2016 4:50 PM EDT 11/22/2016 4:50 PM EDT Roque Sanches MD POINT OF CARE TEST O RDERABLES Performing Organization Address [facility] Co de Phone Number [facility] [place] [address] * ECHO COMPLETE W CONTRAST (11/22/2016 12:59 PM EDT) EF 60 HEARTLAB SYSTEM Anatomical Region Laterality Modality Other 11/22/2016 Narrative 11/22/2016 1:38 PM EDT Procedure: ?Transthoracic Echocardiogram Patient: ?COELHOCOLE DOHERTY A ? (Age): 1965(51y) Med Rec#: ? [id number] ?Sex: ?M ? Site Loc: ? [facility] ?Ht / Wt: ??178(cm)/95(kg) Pt. Loc: ?Adult Floor ? BSA: ?2.13 Study Date: ?? 11/22/2016 ?Pt. Type: Inpatient Tape: ? Referring: Roque Sanches ([id number]) Reading: Roque Sanches ([id number]) Pump Service Supervisor: Jorge A Street Diagnosis: *ICD-10-PCS Unstable angina (I20.0) CPT Codes: *Echo Full (84750) *Spectral Doppler (35941) *Color Doppler (93517) *Optison ([id number]) Rhythm: ? Sinus BP: ? 113/70 SUMMARY: [...] E-wave Vmax ?0.5 ?m/sec ? MV deceleration [id number] ?msec ? MV A-wave Vmax ?0.4 ?m/sec [...] ? Mid-Inferior ?Normal ? Mid-Inferoseptal ?Normal ? [place]-Septal ? Normal ? [place]-Anterior ? Normal ? [place]-Lateral ?Normal ? [place]-Inferior ? Normal ? [place]-Tip ?Normal ? This report has been electronically signed by: Roque Sanches M.D. ? 11/22/2016 13:38:29 Images reviewed and interpretation verified [facility] Cardiac Ultrasound Laboratory Procedure Note Roque Sanches MD - 11/22/2016 Procedure: Transthoracic Echocardiogram Patient: LAQUITA HARRIS(Age): 1965(51y) Med Rec#: [id number] Sex: M Site Loc: [facility] Ht / Wt: 178(cm)/95(kg) Pt. Loc: Adult Floor BSA: 2.13 Study Date: 11/22/2016 Pt. Type: Inpatient Tape: Referring: Roque Sanches ([id number]) Reading: Roque Sanches () Pump Service Supervisor: Jorge A Street Diagnosis: *ICD-10-PCS Unstable angina (I20.0) CPT Codes: *Echo Full (16790) *Spectral Doppler (13991) *Color Doppler (37255) *Optison ([id number]) Rhythm: Sinus BP: 113/70 SUMMARY: 1. The [...] MV E-wave Vmax 0.5 m/sec MV deceleration [id number] msec MV A-wave Vmax 0.4 m/sec MV [...] Hypokinetic Mid-Posterolateral Hypokinetic Mid-Inferior Normal Mid-Inferoseptal Normal [place]-Septal Normal [place]-Anterior Normal [place]-Lateral Normal [place]-Inferior Normal [place]-Tip Normal This report has been electronically signed by: Roque Sanches M.D. 11/22/2016 13:38:29 Images reviewed and interpretation verified [facility]iac Ultrasound [facility] Drew Pepe MD [...] TEST O RDERABLES [facility] [place] [address] * Potassium (11/22/2016 10:06 AM EDT) Potassium [...] MD CHEMISTRY ORDERABLES [facility] [place] [address] * Cardiac Enzymes (11/22/2016 10:06 AM EDT) Pathologist [facility] Troponin-T <0.03 <=0.03 ng/mL [facility] [...] consensus document of the Joint Society of Cardiology/[place] College [employer] Cardiology Committee for the redefinition of myocardial infarction. ??Journal of the [place] College of Cardiology 2000; 36: 959-969] Creatine Kinase 48 0 - 200 unit/L [facility] Blood specimen (specimen) 11/22/2016 10:06 AM EDT 11/22/2016 10:16 AM EDT Narrative Resulting Agency Comment Spec In Lab Drew Pepe MD CHEMISTRY ORDERABLES Performing Organization Address City/[facility]/ZIP Co de Phone Number [facility] [place] [address] * (ABNORMAL) APTT (11/22/2016 10:06 AM EDT) [facility] Signature Partial Thromboplastin Time 104(H) 25 - 35 sec [facility] Comment: The recommended therapeutic range for full dose, unfractionated heparin at [facility] is 80 ? 114 seconds. The use of the anti-Xa (heparin) level rather than the PTT is recommended for monitoring anticoagulation intensity in critically ill patients receiving unfractionated heparin by continuous IV infusion. Blood specimen (specimen) 11/22/2016 10:06 AM EDT 11/22/2016 10:16 AM EDT Narrative Resulting Agency Comment Spec In Lab Roque Sanches MD HEMATOLOGY ORDERABLE S Performing Organization Address [facility]/ZIP Co de Phone Number [facility] [place] [address] * XR Chest PA & Lateral (Generic) [...] CARE TEST O RDERABLES Performing Organization Address [facility] Co de Phone Number [facility] [place] [address] * EKG 12 Lead (11/22/2016 7:12 AM EDT) Ventricular rate 74 BPM MUSE SYSTEM Atrial Rate 74 BPM MUSE SYSTEM P-R Interval 146 ms MUSE SYSTEM QRS Duration 92 ms MUSE SYSTEM Q-T Interval 382 ms MUSE SYSTEM QTC Calculated (Bezet) 424 ms MUSE SYSTEM Calculated P [place] 34 degrees MUSE SYSTEM Calculated R [place] 26 degrees MUSE SYSTEM Calculated T [place] 27 degrees MUSE SYSTEM INTERPRETATION Normal sinus rhythm Normal ECG When compared with ECG of 21-NOV-2016 20:34, (unconfirmed) No significant change was found Confirmed by MD Anton, Asif ([id number]) on 11/22/2016 10:51:21 AM MUSE SYSTEM 11/22/2016 7:12 AM EDT 11/22/2016 10:51 AM EDT Roque Sanches MD ECG ORDERABLES Performing Organization Address City/[facility]/ZIP Co de Phone Number MUSE [...] greater than or equal to 190 mg/dL. http://circ.ahajournals.org/content/early/.cir.9596570833.92488.7a Adults aged 40-75 with LDL 70-189 mg/dL should have their 10 year ASCVD risk estimated with the ACC/AHA ASCVD risk take out waiter/waitress http://tools.acc.org/WMDBQ-Qzwl-Mtbysrgon/ Statin should be discussed if risk greater [...] MD CHEMISTRY ORDERABLES [facility] [place] [address] * Cardiac Enzymes (11/22/2016 3:58 AM EDT) [...] consensus document of the Joint Society of Cardiology/[place] College [employer] Cardiology Committee for the redefinition of myocardial infarction. ??Journal of the [place] College of Cardiology 2000; 36: 959-969] Creatine Kinase 50 0 - 200 unit/L [facility] Blood specimen (specimen) Venous Draw / Unknown 11/22/2016 3:58 AM EDT 11/22/2016 4:13 AM EDT Narrative Resulting Agency Comment Spec In Lab Roque Sanches MD CHEMISTRY ORDERABLES Performing Organization Address City/State/[facility] Co de Phone Number [facility] [place] [phone] * Differential, Automated (11/22/2016 3:58 AM EDT) Neutrophil % 56.6 % [facility] Neutrophil Absolute 4.86 1.70 - 6.10 x10(3)/[facility] LABORATORY Lymph % 30.3 % [facility] Lymphocytes Abs 2.6 0.9 - 3.2 x10(3)/[facility] LABORATORY Monocyte % 7.7 % [facility] Monocyte Abs 0.7 0.3 - 0.9 x10(3)/[facility] LABORATORY Eos % 4.5 % [facility] Eosinophils Abs 0.4 0.0 - 0.4 x10(3)/[facility] LABORATORY Basophil % 0.6 % [facility] Baso Absolute 0.0 0.0 - 0.1 x10(3)/[facility] LABORATORY Immature Gran % 0.30 % [facility] [...] HEMATOLOGY ORDERABLE S [facility] [place] [address] * (ABNORMAL) Hemogram (11/22/2016 3:58 AM EDT) [...] MEDICAL CENTER LABORATORY NRBC% auto 0.0 % [facility] NRBC Absolute 0.000 0.000 - 0.000 x10(3)/mc L [facility] Blood specimen (specimen) 11/22/2016 3:58 AM EDT 11/22/2016 4:13 AM EDT Narrative Resulting Agency Comment Spec In Lab Roque Sanches MD HEMATOLOGY ORDERABLE S [facility] [place] [address] * (ABNORMAL) BMP w/fasting Glucose (11/22/2016 3:58 [...] of Diabetes Mellitus, Position Statement from the [place] [employer]. ??Diabetes Care, Volume 33, Supplement 1, Aug 2009 Blood Urea Nitrogen 10 10 - 20 mg/dL [facility] Creatinine 0.85 0.80 - 1.50 mg/dL [facility] Comment: Please note that the pediatric reference intervals supplied above were not validated at [facility]. Results from pediatric patients should be interpreted [...] LABORATORY Est Glomerular Filtration Rate >60 >=60 [facility] Comment: This estimated GFR (eGFR) [...] the following links into your internet browser. [email or web address] [email or web address]/[email or web address] [email or web address] Blood specimen (specimen) 11/22/2016 3:58 AM EDT 11/22/2016 4:13 AM EDT Narrative Resulting Agency Comment Spec In Lab Roque Sanches MD CHEMISTRY ORDERABLES [facility] [place] [address] * (ABNORMAL) APTT (11/22/2016 3:58 AM EDT) [facility] Partial Thromboplastin Time 44(H) 25 - 35 sec [facility] Comment: The recommended therapeutic range for full dose, unfractionated heparin at [facility] is 80 ? 114 seconds. The use of the anti-Xa (heparin) level rather than the PTT is recommended for monitoring anticoagulation intensity in critically ill patients receiving unfractionated heparin by continuous IV infusion. Blood specimen (specimen) 11/22/2016 3:58 AM EDT 11/22/2016 4:13 AM EDT Narrative Resulting Agency Comment Spec In Lab Drew Pepe MD HEMATOLOGY ORDERABLE S Performing Organization Address [facility] Co de Phone Number [facility] [place] [address] * EKG 12 Lead (11/21/2016 8:34 PM EDT) Ventricular rate 72 BPM MUSE SYSTEM Atrial Rate 72 BPM MUSE SYSTEM P-R Interval 138 ms MUSE SYSTEM QRS Duration 86 ms MUSE SYSTEM Q-T Interval 382 ms MUSE SYSTEM QTC Calculated (Bezet) 418 ms MUSE SYSTEM Calculated P [place] -2 degrees MUSE SYSTEM Calculated R [place] 16 degrees MUSE SYSTEM Calculated T [place] 16 degrees MUSE SYSTEM INTERPRETATION Normal sinus rhythm Normal ECG When compared with ECG of 30-JUL-2013 08:41, No significant change was found Confirmed by MD Anton, Asif (57) on 11/22/2016 10:49:32 AM MUSE SYSTEM 11/21/2016 8:34 PM EDT 11/22/2016 10:49 AM EDT Drew Pepe MD ECG ORDERABLES Performing Organization Address [facility] Co de Phone Number MUSE SYSTEM [...] Mellitus, Diabetes Care 2013; 36: Suppl. 1, K95-88 Estimated Average Glucose 114 mg/dL [facility] [...] resources are available on the ADA website: http://[employer].Xtract/DHMCadacalc Ashok PIMENTEL, Abdulkadir J, Jamie R, et al. ??Translating the A1C assay into estimated average glucose values. ??Diabetes Care 2008:31(8):1329-2414. Blood specimen (specimen) Venous Draw / Unknown 11/21/2016 8:32 PM EDT 11/22/2016 12:39 AM EDT Narrative Resulting Agency Comment Spec In Lab Drew Pepe MD CHEMISTRY ORDERABLES Performing Organization Address [facility] Co de Phone Number [facility] [place] [address] * TSH (11/21/2016 8:32 PM EDT) Thyroid Stimulating Hormone 2.29 0.27 - 4.20 mcIU/mL [facility] Blood specimen (specimen) Venous Draw / Unknown 11/21/2016 8:32 PM EDT 11/21/2016 8:40 PM EDT Narrative Resulting Agency Comment Spec In Lab Drew Pepe MD CHEMISTRY ORDERABLES Performing Organization Address [facility] Co de Phone Number [facility] [place] [address] * (ABNORMAL) Differential, Automated (11/21/2016 8:32 PM EDT) Neutrophil % 38.3 % [facility] Neutrophil Absolute 3.02 1.70 - 6.10 x10(3)/[facility] LABORATORY Lymph % 48.7 % [facility] Lymphocytes Abs 3.8(H) 0.9 - 3.2 x10(3)/[facility] LABOR[facility]ORY Monocyte % 7.3 % [facility] Monocyte Abs 0.6 0.3 - 0.9 x10(3)/[facility] LABOR[facility]ORY Eos % 4.4 % [facility] Eosinophils Abs 0.4 0.0 - 0.4 x10(3)/[facility] LABOR[facility]ORY Basophil % 0.9 % [facility] Baso Absolute 0.1 0.0 - 0.1 x10(3)/[facility] LABORATORY Immature Gran % 0.40 % [facility] Comment: Immature granulocytes(IG's)percentage and absolute count will include metamyelocytes, myelocytes, and promyelocytes. Blood smears from CBCs yielding IG's will be scanned manually for concordance. If this scan disagrees with the automated IG or if promyelocytes are noted, a manual differential will be performed. Immature Gran Absolute 0.03 0.00 - 0.04 x10(3)/[facility] LAB[facility]ORY Blood specimen (specimen) 11/21/2016 8:32 PM EDT 11/21/2016 8:37 PM EDT Narrative Resulting Agency Comment Spec In Lab Drew Pepe MD HEMATOLOGY ORDERABLE S [facility] [place] [address] * Hemogram (11/21/2016 8:32 PM EDT) White Blood Cell 7.9 4.0 - 9.5 x10(3)/[facility] LABORATORY Red Blood Cell 4.64 4.58 - 5.54 x10(6)/[facility] LABORATORY Hemoglobin 13.9 13.7 - 16.5 gm/dL [facility] Hematocrit 40.6 40.5 - 48.5 % [facility] Mean Cell Volume 87.5 82.9 - 93.1 fL [facility] Mean Cell Hemoglobin 30.0 27.5 - 32.1 pg [facility] Mean Cell Hemoglobin Concentration 34.2 32.0 - 35.7 gm/dL [facility] Platelet 179 145 - 357 x10(3)/[facility] LABORATORY RDW Standard Deviation 44.3 36.0 - 45.0 fL [facility] RDW coefficient of variation 13.8 11.4 - 13.8 % [facility] Mean Platelet Volume 10.8 7.6 - 12.9 fL [facility] NRBC% auto 0.0 % [facility] NRBC Absolute 0.000 0.000 - 0.000 x10(3)/[facility] LABOR[facility]ORY Blood specimen (specimen) 11/21/2016 8:32 PM EDT 11/21/2016 8:37 PM EDT Narrative Resulting Agency Comment Spec In Lab Drew Pepe MD HEMATOLOGY ORDERABLE S [facility] [place] [address] * Cardiac Enzymes (11/21/2016 8:32 PM EDT) [...] consensus document of the Joint Society of Cardiology/[place] College [employer] Cardiology Committee for the redefinition of myocardial infarction. ??Journal of the [place] College of Cardiology 2000; 36: 959-969] Creatine Kinase 64 0 - 200 unit/L [facility] Blood specimen (specimen) 11/21/2016 8:32 PM EDT 11/21/2016 8:37 PM EDT Narrative Resulting Agency Comment Spec In Lab Drew Pepe MD CHEMISTRY ORDERABLES Performing Organization Address [facility] Co de Phone Number [facility] [place] [address] * APTT (11/21/2016 8:32 PM EDT) Partial Thromboplastin Time 32 25 - 35 sec [facility] Comment: The recommended therapeutic range for full dose, unfractionated heparin at [facility] is 80 ? 114 seconds. The use of the anti-Xa (heparin) level rather than the PTT is recommended for monitoring anticoagulation intensity in critically ill patients receiving unfractionated heparin by continuous IV infusion. Blood specimen (specimen) 11/21/2016 8:32 PM EDT 11/21/2016 8:37 PM EDT Narrative Resulting Agency Comment Spec In Lab Drew Pepe MD HEMATOLOGY ORDERABLE S Performing Organization Address [facility] Co de Phone Number [facility] [place] [address] * Prothrombin Time (11/21/2016 8:32 PM EDT) [...] HEMATOLOGY ORDERABLE S [facility] [place] [address] * Hepatic Function Panel (11/21/2016 8:32 PM EDT) Pathologist [facility] Protein, Total 6.8 6.1 - 8.0 [...] MD CHEMISTRY ORDERABLES [facility] [place] [address] * (ABNORMAL) Basic Metabolic Panel (non-fasting) (11/21/2016 8:32 PM EDT) Glucose 84 65 - 199 mg/dL [facility] Comment:Diabetes: >=200 mg/d L plus symptoms Blood Urea Nitrogen 10 10 - 20 mg/dL [facility] Creatinine 0.95 0.80 - 1.50 mg/dL [facility] Comment: Please note that the pediatric reference intervals supplied above were not validated at [facility]. Results from pediatric patients should be interpreted [...] LABORATORY Est Glomerular Filtration Rate >60 >=60 [facility] Comment: This estimated GFR (eGFR) [...] the following links into your internet browser. http://Professional Aptitude Council.Xtract/DHnkdep [email or web address]/DHMCnkf Blood specimen (specimen) 11/21/2016 8:32 PM EDT 11/21/2016 8:37 PM EDT Narrative Resulting Agency Comment Spec In Lab Derw Pepe MD CHEMISTRY ORDERABLES [facility] [place] [address] * pro-Brain Natriuretic Peptide (11/21/2016 8:32 PM EDT) NT-proBNP 65 <=125 pg/mL [facility] Blood specimen (specimen) 11/21/2016 8:32 PM EDT 11/21/2016 8:37 PM EDT Narrative Resulting Agency Comment Spec In Lab Drew Pepe MD CHEMISTRY ORDERABLES [facility] [place] [address] * POCT Glucose (11/21/2016 8:12 PM EDT) Glucose, POC 80 65 - 199 mg/dL [facility] Comment: Supplemental ranges: <140 mg/dL before meals <180 mg/dL all other times of the day Blood specimen (specimen) 11/21/2016 8:12 PM EDT 11/21/2016 8:12 PM EDT Valentín Oreilly MD POINT OF CARE TEST ORDERABLES [facility] [place] [address] documented in this encounter Visit Diagnoses Not [...] 0814 (Given - Provider: Esha Chen RN)1811 ([facility] Hold - Provider: Admin Adt - [...] Adt) 0730 (Not Given - Provider: Venancio Borugeois RN - Reason: Order parameters not met) isosorbide mononitrate (IMDUR) CR tablet 120 mg 120 mg, Oral, DAILY, First dose on 11/22/16 at 0900, Until Discontinued, DO NOT CRUSH OR OPEN, Routine 0808 (Given - Provider: Esha Chen RN) 0815 (Given - Provider: Esha Chen RN)1811 ([facility] Hold - Provider: Admin Adt - Reason: Transfer to a Procedural area)1940 ([facility] Unhold - Provider: Admin Adt) 0858 (Given - Provider: Venancio Bourgeois RN) losartan (COZAAR) tablet 12.5 mg 12.5 mg, Oral, DAILY, First dose on 11/22/16 at 0900, Until Discontinued, Routine 0807 (Given - Provider: Esha Chen RN) 0816 (Given - Provider: Esha Chen RN)1811 ([facility] Hold - Provider: Admin Adt - Reason: Transfer to a Procedural area)1940 ([facility] Unhold - Provider: Admin Adt) 0857 (Given [...] 0816 (Given - Provider: Esha Chen RN)1811 ([facility] Hold - Provider: Admin Adt - Reason: Transfer to a Procedural area)1940 ([facility] Unhold - Provider: Admin Adt)2107 (Given - Provider: Vencie Huffman RN) 09 (Given - Provider: Venancio Bourgeois RN) pantoprazole (PROTONIX) tablet 40 mg 40 mg, Oral, DAILY, First dose on 11/22/16 at 0900, Until Discontinued, DO NOT CRUSH OR OPEN, Routine 0808 (Given - Provider: Esha Chen RN) 0816 (Given - Provider: Esha Chen RN)1811 ([facility] Hold - Provider: Admin Adt - Reason: Transfer to a Procedural area)1940 ([facility] Unhold - Provider: Admin Adt) 900 (Given - Provider: Venancio Bourgeois, RN) pramipexole (MIRAPEX) tablet 0.5 mg 0.5 mg, Oral, NIGHTLY, First dose on 11/22/16 at 0030, Until Discontinued, Routine 2058 (Given - Provider: Christy Medina, VERO) 1811 ([facility] Hold - Provider: Admin Adt - Reason: Transfer to a Procedural area)1940 ([facility] Unhold - Provider: Admin Adt)2107 (Given - [...] 08 (Given - Provider: Esha Chen RN)1811 ([facility] Hold - Provider: Admin Adt - Reason: Transfer to a Procedural area)1940 ([facility] Unhold - Provider: Admin Adt)2107 (Given - [...] See comment - Comment: IV flds infusing)1811 ([facility] Hold - Provider: Admin Adt - Reason: Transfer to a Procedural area)1940 ([facility] Unhold - Provider: Admin Adt)2111 (Given - Provider: [place] Huffman, VERO) 09 (Due - Provider: Admin Adt) sodium chloride 0.9 % flush 5 mL (CANCELED) 5 mL, Intravenous, EVERY 12 HOURS, First dose on 11/22/16 at 0030, Until Discontinued, Cath (Day of Procedure), Routine 0030 (Given - Provider: Alana Patterson RN)1226 (Given - Provider: Ehsa Chen RN) 0030 (Given - Provider: Christy [...] (Given - Provider: Esha Chen RN) 1811 ([facility] Hold - Provider: Admin Adt - Reason: Transfer to a Procedural area)1940 ([facility] Unhold - Provider: Admin Adt) heparin [...] for discomfort with PIV insertion, Routine 1811 ([facility] Hold - Provider: Admin Adt - Reason: Transfer to a Procedural area)1940 ([facility] Unhold - Provider: Admin Adt) midazolam (PF) [...] last 24 to 72 hours., Routine 1811 ([facility] Hold - Provider: Admin Adt - Reason: Transfer to a Procedural area)1940 ([facility] Unhold - Provider: Admin Adt) nitroGLYcerin [...] (Given - Provider: Esha Chen RN) 1811 ([facility] Hold - Provider: Admin Adt - Reason: Transfer to a Procedural area)1940 ([facility] Unhold - Provider: Admin Adt) sodium chloride 0.9 % flush 5-20 mL 5-20 mL, Intravenous, EVERY 1 MIN PRN, Starting on 11/22/16 at 0013, Until Tu11/25/16 at 1305, flush, Flush pertains to all indwelling lines. Flush per protocol found in the job aid using the link provided on this medication record., Routine 1811 ([facility] Hold - Provider: Admin Adt - Reason: Transfer to a Procedural area)1940 ([facility] Unhold - Provider: Admin Adt) sodium chloride 0.9 % flush 5-20 mL 5-20 mL, Intravenous, EVERY 1 MIN PRN, Starting on Thu11/21/16 at 2010, Until Tu11/25/16 at 1305, flush, Flush pertains to all indwelling lines. Flush per protocol found in the job aid using the link provided on this medication record., Routine 1811 ([facility] Hold - Provider: Admin Adt - Reason: Transfer to a Procedural area)1940 ([facility] Unhold - Provider: Admin Adt) sodium [...] Routine documented in this encounter Care Teams Poultry Hatchery Laborer Relationship Specialty Start Date End Date Coni Lim MD [address] [place] [address] PCP - General 07/16/10 documented as of this encounter
--- OUTSIDE RECORDS SUMMARY | 2024-08-22 18:48 | XMS_ITS | Encounter Summary ---
Author Organization [facility] [place] [address] Care Team Providers Care 3D Modeler Name Role Phone Coni Lim MD Primary Care Provider [phone] Encounter Details Date Type Department Care Team (Late st Contact Info) Description 07/25/2015 Telephone Cardiology at [address] [address] Yessy Pugh Social History Tobacco Use Types [...] a week. I havemade Aldair Patel, the time study engineer aware. documented in this encounter Plan of Treatment Not on file documented as of this encounter Visit Diagnoses Not on filedocumented in this encounter Care Teams 3D Modeler Relationship Specialty Start Date End Date Coni Lim MD [address] [place] [address] PCP - General 07/16/10 documented as of this encounter
--- OUTSIDE RECORDS SUMMARY | 2024-08-22 18:48 | XMS_ITS | Encounter Summary ---
Author Organization [place] [address] Care Team Providers Care Financial Dealers Name Role Phone Coni Lim MD Primary Care Provider [phone] Encounter Details Date Type Department Care Team (Late st Contact Info) Description 06/14/2012 [place] [address] Benjie Castellon MD Social History Tobacco Use [...] on filedocumented in this encounter Care Teams Financial Dealers Relationship Specialty Start Date End Date Coni Lim MD [address] [place] [address] PCP - General 07/16/10 documented as of this encounter
--- OUTSIDE RECORDS SUMMARY | 2024-08-22 18:48 | XMS_ITS | Encounter Summary ---
Author Organization [facility] Address [facility] [place] [address] Care Team Providers Care Broach Trouble Shooter Name Role Phone Coni Lim MD Primary Care Provider [phone] Reason for Visit * Reason Onset Date Comments Medication Refill 08/10/2013 Encounter Details Date Type Department Care Team (Late st Contact Info) Description 08/10/2013 Refill Cardiology at [address] [phone] Turner Tan MD [facility] [place] [address] Medication Refill Social History Tobacco Use Types [...] on filedocumented in this encounter Care Teams Broach Trouble Shooter Relationship Specialty Start Date End Date Coni Lim MD [address] [place] [address] PCP - General 07/16/10 documented as of this encounter
--- OUTSIDE RECORDS SUMMARY | 2024-08-22 18:48 | XMS_ITS | Encounter Summary ---
Author Organization [facility] Address [facility] [place] [address] Care Team Providers Care Conservation Officer Name Role Phone Coni Lim MD Primary Care Provider [phone] Encounter Details Date Type Department Care Team (Late st Contact Info) Description 06/14/2012 Orders Only Cardiology at [address] [address] Bryan Iverson MD [facility] [place] [id number] Social History Tobacco Use Types Packs/Day Years [...] PM EDT) 06/14/2012 1:26 PM EDT Narrative [facility] - 03/13/2014 6:59 PM EDT This is a non-reportable exam. Procedure Note Shukri Mckee - 03/13/2014 This is a non-reportable exam. Bryan Iverson MD IM FILM LIBRARY ORD ERABLES RAD [address] [place] [address] documented in this encounter Visit Diagnoses Not on filedocumented in this encounter Care Teams Conservation Officer Relationship Specialty Start Date End Date Coni Lim MD [address] [place] [address] PCP - General 07/16/10 documented as of this encounter
--- OUTSIDE RECORDS SUMMARY | 2024-08-22 18:48 | XMS_ITS | Encounter Summary ---
Author Organization [facility] Address [facility] [place] [address] Care Team Providers Care Autos Disassembler Name Role Phone Coni Lim MD Primary Care Provider Encounter Details Date Type Department Care Team (Latest Contact Info) Description 07/29/2013 11:02 AM EST - 07/29/2013 11:59 PM [facility] Hospital Encounter ZLEB 4A [facility] [place] [address] Edy Trimble MD [facility] [place] [address] Discharge Disposition: Home Social History Tobacco Use [...] CK-MB Study (07/29/2013 6:05 PM EST) Pathologist [facility] Creatine Kinase 57 0 - 200 unit/L [facility] CK-MB 1.4 0.0 - 5.0 mcg/L [facility] CKMB Index 2.5 0.0 - 5.0 mcg/u CERNER MILLENNIUM Blood specimen (specimen) 07/29/2013 6:05 PM EST 07/29/2013 6:33 PM EST Narrative Resulting Agency Comment Spec In Lab Edy Damon MD CHEMISTRY ORDERABLES Performing Organization Address City/[facility] Co de Phone Number CERANNABEL JENSENENNIUM [...] Damon MD CHEMISTRY ORDERABLES Performing Organization Address City/[facility] Co de Phone Number CERANNABEL CLEMENSIUM documented in this encounter Visit Diagnoses Not on filedocumented in this encounter Care Teams Autos Disassembler Relationship Specialty Start Date End Date Coni Lim MD [address] [place] [address] PCP - General 07/16/10 documented as of this encounter
--- OUTSIDE RECORDS SUMMARY | 2024-08-22 18:48 | XMS_ITS | Encounter Summary ---
Author Organization [facility] [place] [address] Care Team Providers Care Engineer Process Name Role Phone Coni Lim MD Primary Care Provider [phone] Encounter Details Date Type Department Care Team (Late st Contact Info) Description 07/26/2013 Orders Only Cardiology at [address] [address] Taylor Dickinson PA ASCVD (arteriosclerotic cardiovascular disease) [...] disease documented in this encounter Care Teams Engineer Process Relationship Specialty Start Date End Date Coni Lim MD [address] [place] [address] PCP - General 07/16/10 documented as of this encounter
--- OUTSIDE RECORDS SUMMARY | 2024-08-22 18:48 | XMS_ITS | Encounter Summary ---
Author Organization [facility] Address [facility] [place] [address] Care Team Providers Care Tub Wash Operator Name Role Phone Sarita Lim MD Primary Care Provider [phone] Encounter Details Date Type Department Care Team (Latest Contact Info) Description 06/14/2012 1:39 PM EDT - 06/15/2012 6:03 PM EDT Hospital Encounter Intermediate [place] [id number] Bryan Iverson MD [facility] [place] [address] Chest pain; GERD (gastroesophageal reflux disease); HTN [...] appointments: During 8am-5pm Thursday through Thursday call [phone] to speak with a nurse in the cardiology clinic All other times call [phone] and ask to speak to the train examiner paraprofessional interpreter. Return to work: As tolerated Driving: As tolerated Follow up Appointments: PCP SARITA LIM MD June 22, 2012 at 11:[address] Leyva June 17, 2012 at 9:40 am Home oxygen therapy: N/A Arrangements for VNA/home care: none Pain clinic phone number for referral [phone] * Attachments The following attachments cannot be sent through Care Everywhere. * CHEST PAIN (ANGINA): AFTER YOUR VISIT (YAKUT) documented in this encounter Medications at Time [...] Progress Note Patient Name: Romeo Coe Service: SWIMMING POOL INSTALLER / PA Responsible Attending: Dr. Iverson Reason for continued hospitalization: Evaluation and management of chest pain, myocardial infarction excluded by enzymes Active Problems: Active Hospital Problems Diagnoses ??? Chest pain ??? Dyslipidemia ??? GERD (gastroesophageal reflux disease) ??? HTN (hypertension) ??? DM (diabetes mellitus) ??? Smoker ??? CAD (coronary artery disease), non-obstructive - [facility] 2009 post abnormal nuc stress +IW, EF [...] ??? DISCONTD: sodium chloride 0.9% Stopped (06/15/12 4002) ??? DISCONTD: heparin 1,650 Units/hr (06/15/12 0315) [...] abnormality. ECG without change. Ruled out for MT despite having over 6 hours of pain. Chest pain responsive to nitrates and to morphine yesterday. Pain free this morning. This afternoon, chest pain lying in bed 5/10. ECG unchanged. Responsive to nitroglycerin. Barium swallow cancelled due to barium shortage. Will schedule as an outpatient. Reviewed possibilities of chest pain. Ruled out for PE with negative D dimer yesterday at [facility]. No effusion on echo. CXR negative for widened mediastinum. Hepatic labs normal. No gallbladder. Ruled out for MT and no cardiac enzymes or objective evidence of ischemia seen. Patient has history of fibromyalgia managed by cymbalta. Will increase nitrate dosing and consult pain service. Plan: Chest pain Non cardiac, ruled out for MT, echo showed no WMA ? Esophageal spasm [...] (coronary artery disease), non-obstructive - [facility] 2009 post abnormal nuc stress +IW, EF [...] son's biological father. He wastransported to the [facility] ED where he was evaluated and released. [...] rehab and he was transferred to the [facility] ED where 3 moresl nitroglycerin tablets were given. He didn't have any relief with these nitroglycerin tablets. In the [facility] ED his ECG showed no change, negative d dimer and troponin. He was given IV lopressor which dropped his HR from 115 to 90, IV zofran 4 mg and IV ativan 0.[address] was done which is reported as negative. He was transferred to [facility] for further management. He arrives to [facility] with 6/10 chest pain and jaw pain. [...] of Onset ??? Heart Attack Father 46 MT, CABG ??? Diabetes Mother [...] son (age 18 months), daughter 11 in [place], [place]. Takes care of his mother who has dementia and he takes her to dialysis. is disabled. Has grown daughter who is 29 years old. 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 REVIEW OF SYSTEMS: Review of Systems Constitutional: [...] ECG change or elevated troponin found at [facility]. Chest pain has remained for 6 hours without relief, will check [facility] cardiac enzymes. ECG at [facility] unchanged fromECG at discharge 10 days ago. Will get echo with pain now to evaluate for wall motion abnormality. Will place on heparin gtt TREATMENT PLAN: Chest pain Will get echo with pain Start heparin gtt Cycle cardiac enzymes, 1st set at [facility] negative Non nitrate responsive CAD On aspirin, [...] Iverson Provider: SUSHMA WILCOX APRN Provider #: [id number] STAFF ADDENDUM Patient interviewed and examined. Medical [...] 06/16/2012 11:28 AM EDTAssociated Order(s): SCAN DOC: FEATHER MAKER documented in this encounter Miscellaneous Notes * [...] questions, * Discharge Summary - Sushma Wilcox, ASBESTOS MICROSCOPIST - 06/15/2012 9:53 AM EDT Images from [...] (coronary artery disease), non-obstructive - [facility] 2009 post abnormal nuc stress +IW, EF [...] son's biological father. He wastransported to the [facility] ED where he was evaluated and released. [...] rehab and he was transferred to the [facility] ED where 3 more sl nitroglycerin tablets were given. He didn't have any relief with these nitroglycerin tablets. In the [facility] ED his ECG showed no change, negative d dimer and troponin. He was given IV lopressor which dropped his HR from 115 to 90, IV zofran 4 mg and IV ativan 0.[address] was done which is reported as negative. He was transferred to [facility] for further management. He arrives to [facility] with 6/10 chest pain and jaw pain. He appears to be resting comfortably in bed. Hospital Course: Chest Pain, non cardiac The patient had ongoing pain on arrival to [facility], rated 5/10. Echo done at the time showed no wall motion abnormality and an EF of 65%. He had negative cardiac enzymes x 3 sets and heparin was stopped. Chest pain resolved with morphine. Overnight he had another episode of chest pain which was nitrate responsive. Chest pain from the following causes was excluded: Cardiac, pulmonary with normal d dimer at [facility] and CXR with only smoker's changes, no [...] meds needed now, [facility] Patient switched to plavix due [...] appointments: During 8am-5pm Thursday through Thursday call [phone] to speak with a nurse in the cardiology clinic All other times call [phone] and ask to speak to the train examiner paraprofessional interpreter. Return to work: As tolerated Driving: As tolerated Follow up Appointments: PCP SARITA LIM MD June 22, 2012 at 11:[address] Leyva June 17, 2012 at 9:40 am Home oxygen therapy: N/A Arrangements for VNA/home care: none Pain clinic phone number for referral [phone] Provider Contact Information: SUSHMA WILCOX, ASBESTOS MICROSCOPIST [phone] Discharge References/Attachments: Discharge References/Attachments None Signed: Sushma Wilcox, ASBESTOS MICROSCOPIST 06/15/2012 * Miscellaneous - Provider, Scanning - 06/14/2012 9:38 PM EDT documented in this encounter Plan of Treatment Not on file documented as of this encounter Procedures Procedure Name Priority Date/Time Associated Diagnosis Comments FEATHER MAKER SCAN 06/16/2012 11:28 AM EDT POCT GLUCOSE [...] 10:40 PM EDT Chest pain CARDIAC ENZYMES ([facility]) STAT 06/14/2012 8:55 PM EDT APTT STAT 06/14/2012 8:55 PM EDT XR CHEST PA AND LATERAL Routine 06/14/20 12 8:45 PM EDT POCT GLUCOSE Routine 06/14/2012 8:11 PM EDT POCT GLUCOSE Routine 06/14/2012 4:57 PM EDT ECHOCARDIOGRAM TRANSTHORACIC STAT 06/14/2012 4:00 PM EDT Chest pain BMP W/FASTING GLUCOSE STAT 06/14/2012 2:38 PM EDT DIFFERENTIAL, AUTOMATED STAT 06/14/20 12 2:38 PM EDT CARDIAC ENZYMES ([facility]) STAT 06/14/2012 2:38 PM EDT APTT STAT 06/14/2012 2:38 PM EDT PROTHROMBIN TIME STAT 06/14/2012 2:38 PM EDT CBC (WITH DIFF) STAT 06/14/2012 2:38 PM EDT EKG 12-LEAD STAT 06/14/2012 2:27 PM EDT Chest pain documented in this encounter Results * SCAN DOC: FEATHER MAKER (06/16/2012 11:28 AM EDT) Anatomical Region Laterality [...] TEST O RDERABLES Performing Organization Address [facility] Co de Phone Number [facility] * EKG 12 Lead (06/15/2012 12:40 PM EDT) Ventricular rate 91 BPM MUSE SYSTEM Atrial Rate 91 BPM MUSE SYSTEM P-R Interval 138 ms MUSE SYSTEM QRS Duration 82 ms MUSE SYSTEM Q-T Interval 328 ms MUSE SYSTEM QTC Calculated (Bezet) 403 ms MUSE SYSTEM Calculated P Hensel 27 degrees MUSE SYSTEM Calculated R Hensel 31 degrees MUSE SYSTEM Calculated T Hensel 41 degrees MUSE SYSTEM INTERPRETATION Normal sinus rhythm Normal ECG When compared with ECG of 15-JUN-2012 07:17, No significant change was found Confirmed by MD Walton Douglas (57) on 06/15/2012 2:25:30 PM MUSE SYSTEM 06/15/2012 12:4 0 PM EDT 06/15/2012 2:25 PM EDT Bryan Iverson MD ECG ORDERABLES Performing Organization Address City/[facility]/ZIP Co de Phone Number MUSE SYSTEM * POCT GLUCOSE (06/15/2012 12:00 PM EDT) Glucose, POC 164 60 - 199 mg/dL [facility] Comment: Supplemental ranges: <110 mg/dL before meals <200 mg/dL all other times of the day Blood specimen (specimen) 06/15/2012 12:00 PM EDT 06/15/2012 12:00 PM EDT Bryan Iverson MD POINT OF CARE TEST O RDERAAIRAM Performing Organization Address [facility] de Phone Number [facility] * POCT GLUCOSE (06/15/2012 7:51 AM EDT) Pathologist [facility] Glucose, POC 166 60 - 199 mg/dL [facility] Comment: Supplemental ranges: <110 mg/dL before meals <200 mg/dL all other times of the day Blood specimen (specimen) 06/15/2012 7:51 AM EDT 06/15/2012 7:51 AM EDT Bryan Iverson MD POINT OF CARE TEST O RDERAAIRAM Performing Organization Address [facility] de Phone Number [facility] * (ABNORMAL) APTT (06/15/2012 7:35 AM EDT) Partial Thromboplastin Time 130(H) 25 - 35 sec [facility] Comment: Recommended therapeutic PTT range for full dose unfractionated heparin is 80-114 seconds. Blood specimen (specimen) 06/15/2012 7:35 AM EDT 06/15/2012 7:49 AM EDT Narrative Resulting Agency Comment Spec In Lab Bryan Iverson MD HEMATOLOGY ORDERABLE S Performing Organization Address [facility] Phone Number [facility] * EKG 12 Lead (06/15/2012 7:17 AM EDT) Ventricular rate 69 BPM MUSE SYSTEM Atrial Rate 69 BPM MUSE SYSTEM P-R Interval 148 ms MUSE SYSTEM QRS Duration 94 ms MUSE SYSTEM Q-T Interval 374 ms MUSE SYSTEM QTC Calculated (Bezet) 400 ms MUSE SYSTEM Calculated P Hensel 20 degrees MUSE SYSTEM Calculated R Hensel 35 degrees MUSE SYSTEM Calculated T Hensel 36 degrees MUSE SYSTEM INTERPRETATION Normal sinus rhythm Normal ECG When compared with ECG of 14-JUN-2012 22:40, (unconfirmed) No significant change was found Confirmed by MD Walton Douglas (57) on 06/15/2012 9:36:33 AM MUSE SYSTEM 06/15/2012 7:17 AM EDT 06/15/2012 9:36 AM EDT Bryan Iverson MD ECG ORDERABLES Performing Organization Address [facility]/ZIP Co de Phone Number MUSE SYSTEM * CARDIAC ENZYMES (06/15/2012 2:08 AM EDT) Troponin-T <0.03 <=0.03 ng/mL [facility] Comment: 0.03 ng/mL: Represents the [...] consensus document of the Joint Society of Cardiology/[place] College of Cardiology Committee for the redefinition of myocardial infarction. Journal of the [place] College of Cardiology 2000; 36: 959-969] Creatine Kinase 52 0 - 200 unit/L [facility] Blood specimen (specimen) 06/15/2012 2:08 AM EDT 06/15/2012 2:28 AM EDT Narrative Resulting Agency Comment Spec In Lab Bryan Iverson MD CHEMISTRY ORDERABLES Performing Organization Address [facility]/ZIP Co de Phone Number [facility] [employer] * (ABNORMAL) BMP w/fasting Glucose (06/15/2012 2:08 AM EDT) Glucose Fasting 125(H) 65 - 99 mg/dL [facility] Comment: ?Fasting* Glucose Interpretive Criteria [...] of Diabetes Mellitus, Position Statement from the [place] Diabetes Association. ??Diabetes Care, Volume 33, Supplement 1, Aug 2009 Blood Urea Nitrogen 13 10 - 20 mg/dL [facility]ERN[facility] MILLENNIUM Creatinine 0.76(L) 0.80 - 1.50 mg/dL [facility]ERN[facility] MILLENNIUM Comment: Please note that the pediatric reference intervals supplied above were not validated at [facility]. Results from pediatric patients should be interpreted [...] Iverson MD CHEMISTRY ORDERABLES Performing Organization Address [facility] Co de Phone Number [employer] * (ABNORMAL) APTT (06/15/2012 2:08 AM EDT) [facility] Signature Partial Thromboplastin Time 76(H) 25 - 35 sec T[facility]CHANEL Comment: Recommended therapeutic PTT range for full dose unfractionated heparin is 80-114 seconds. Blood specimen (specimen) 06/15/2012 2:08 AM EDT 06/15/2012 2:28 AM EDT Narrative Resulting Agency Comment Spec In Lab Bryan Iverson MD HEMATOLOGY ORDERABLE S Performing Organization Address [facility] Co de Phone Number CERNER MILLENNIUM [...] ORDERABLES Performing Organization Address City/[facility] Co de Phone Number [facility]ANG CLEMENSIUM * TSH (06/15/2012 2:08 AM EDT) Thyroid Stimulating Hormone 1.62 0.27 - 4.20 mcIU/mL [facility]ERN[facility] MILLENNIUM Blood specimen (specimen) 06/15/2012 2:08 AM EDT 06/15/2012 2:28 AM EDT Narrative Resulting Agency Comment Spec In Lab Bryan Iverson MD CHEMISTRY ORDERABLES Performing Organization Address City/[facility] Co de Phone Number CERANNABEL JENSENENNIUM [...] HEMATOLOGY ORDERABLE S Performing Organization Address [facility] de Phone Number [facility] * EKG 12 Lead (06/14/2012 10:40 PM EDT) Pathologist [facility] Ventricular rate 87 BPM MUSE SYSTEM Atrial Rate 87 BPM MUSE SYSTEM P-R Interval 152 ms MUSE SYSTEM QRS Duration 90 ms MUSE SYSTEM Q-T Interval 356 ms MUSE SYSTEM QTC Calculated (Bezet) 428 ms MUSE SYSTEM Calculated P Hensel 33 degrees MUSE SYSTEM Calculated R Hensel 27 degrees MUSE SYSTEM Calculated T Hensel 37 degrees MUSE SYSTEM INTERPRETATION Normal sinus rhythm Normal ECG When compared with ECG of 14-JUN-2012 14:27, No significant change was found Confirmed by MD Anton, Asif (57) on 06/15/2012 9:29:03 AM MUSE SYSTEM 06/14/2012 10:4 0 PM EDT 06/15/2012 9:29 AM EDT Bryan Iverson MD ECG ORDERABLES Performing Organization Address [facility] de Phone Number MUSE SYSTEM * Cardiac Enzymes (06/14/2012 8:55 PM EDT) Pathologist [facility] Troponin-T <0.03 <=0.03 ng/mL [facility] Comment: 0.03 ng/mL: Represents the 99th [...] consensus document of the Joint Society of Cardiology/[place] College of Cardiology Committee for the redefinition of myocardial infarction. Journal of the [place] College of Cardiology 2000; 36: 959-969] Creatine Kinase 53 0 - 200 unit/L CERANNABEL [employer] Blood specimen (specimen) 06/14/2012 8:55 PM EDT 06/14/2012 9:40 PM EDT Narrative Resulting Agency Comment Spec In Lab Bryan Iverson MD CHEMISTRY ORDERABLES Performing Organization Address City/[facility]/ZIP Co de Phone Number [facility] [employer] * APTT (06/14/2012 8:55 PM EDT) Partial Thromboplastin Time 33 25 - 35 sec CERANNABEL [employer] Comment: Recommended therapeutic PTT range for full dose unfractionated heparin is 80-114 seconds. Blood specimen (specimen) 06/14/2012 8:55 PM EDT 06/14/2012 9:40 PM EDT Narrative Resulting Agency Comment Spec In Lab Bryan Iverson MD HEMATOLOGY ORDERABLE S Performing Organization Address City/[facility]/ZIP Co de Phone Number [facility] [employer] * XR chest routine PA & lateral (06/14/2012 8:45 PM EDT) Anatomical Region Laterality Modality Chest N/A Radiographic Shelly ging 06/14/2012 8:45 PM EDT Narrative 06/15/2012 9:18 AM EDT Examination CHEST ROUTINE 2 VIEWS Clinical History chest pain, + smoker, recent coronary stents Comparison Is made with the study of 06/14 052094 hours. Technique Findings Cardiomediastinal silhouette is normal. [...] Is made with the study of 06/14 578532 hours. Technique Findings Cardiomediastinal silhouette is normal. [...] Glucose, POC 207(H) 60 - 199 mg/dL [facility] Comment: Supplemental ranges: <110 mg/dL before meals <200 mg/dL all other times of the day Blood specimen (specimen) 06/14/2012 8:11 PM EDT 06/14/2012 8:11 PM EDT Bryan Iverson MD POINT OF CARE TEST O EVITA Performing Organization Address [facility] Co de Phone Number [facility] [employer] * POCT GLUCOSE (06/14/2012 4:57 PM EDT) Glucose, POC 119 60 - 199 mg/dL [facility] Comment: Supplemental ranges: <110 mg/dL before meals <200 mg/dL all other times of the day Blood specimen (specimen) 06/14/2012 4:57 PM EDT 06/14/2012 4:57 PM EDT Bryan Iverson MD POINT OF CARE TEST O EVITA [facility] [employer] * Echo Transthoracic (Complete) (06/14/2012 4:00 PM EDT) EF 65 [facility]ART[facility] SYSTEM Anatomical Region Laterality Modality Other 06/14/2012 Narrative 06/14/2012 4:26 PM EDT Amended Report Procedure: ? Transthoracic Echocardiogram Patient: ? LAQUITA Pop ?(Age): 1965(47) Med Rec#: ?[id number] ? Sex: ?M ? Site Loc: ?[facility] ? Ht / Wt: ??176(cm)/114(kg) Pt. Loc: ? Adult Floor ?BSA: ?2.36 Study Date: ?06/14/2012 ? Pt. Type: Inpatient Tape: ? Referring: Bryan Iverson ([id number]) Referring: STEPHANIE WILLIAM I [place] Operator: Juan Haley [facility] Diagnosis: ??Chest pain (786.50) CPT Code(s): ??Echo LTD (51677), ??Definity (20256PW), Indication(s): ??Chest Pain Rhythm: SUMMARY: 1. Technically [...] ? Mid-Inferior ?Normal ? Mid-Inferoseptal ?Normal ? Erwin-Septal ? Normal ? Erwin-Anterior ? Normal ? Erwin-Lateral ?Normal ? Erwin-Inferior ? Normal ? Erwin-Tip ?Normal ? Chambers ?Value ?Units (Range) ? [...] 06/14/2012 16:26:31 Images reviewed and interpretation verified [facility] Procedure Note Cali Shannon MD - 06/14/2012 Amended Report Procedure: Transthoracic Echocardiogram Patient: LAQUITA Pop DOB(Age): 1965(47) Med Rec#: [id number] Sex: M Site Loc: [facility] Ht / Wt: 176(cm)/114(kg) Pt. Loc: Adult Floor BSA: 2.36 Study Date: 06/14/2012 Pt. Type: Inpatient Tape: Referring: Bryan IversonNatalie ([id number]) Referring: STEPHANIE WILLIAM I [place] Operator: Juan Haley [facility] Diagnosis: Chest pain (786.50) CPT Code(s): Echo LTD (46773), Definity (33196YY), Indication(s): Chest Pain Rhythm: SUMMARY: 1. Technically [...] Normal Mid-Posterolateral Normal Mid-Inferior Normal Mid-Inferoseptal Normal Erwin-Septal Normal Erwin-Anterior Normal Erwin-Lateral Normal Erwin-Inferior Normal Erwin-Tip Normal Chambers Value Units (Range) LV EF Est 65 % (55 to 80) IVSd 2D 0.9 cm LVIDd 2D 4.6 cm PWd 2D 1 cm LVIDs 2D 3.1 cm LVFS 2D 32 % This report has been electronically signed by: Cali Shannon MD 06/14/2012 16:26:31 Images reviewed and interpretation verified [facility] Bryan Iverson MD ECHO [...] (06/14/2012 2:38 PM EDT) Pathologist [facility] Troponin-T <0.03 <=0.03 ng/mL [facility] [employer] Comment: 0.03 ng/mL: Represents the 99th percentile [...] consensus document of the Joint Society of Cardiology/[place] College of Cardiology Committee for the redefinition of myocardial infarction. Journal of the [place] College of Cardiology 2000; 36: 959-969] Creatine Kinase 48 0 - 200 unit/L [facility] [employer] Blood specimen (specimen) 06/14/2012 2:38 PM EDT 06/14/2012 3:04 PM EDT Narrative Resulting Agency Comment Spec In Lab Bryan Iverson MD CHEMISTRY ORDERABLES Performing Organization Address [facility] Phone Number [facility] * APTT (06/14/2012 2:38 PM EDT) Pathologist [facility] Partial Thromboplastin Time 26 25 - 35 sec [facility]ANNABEL JENSENFavoe Comment: Recommended therapeutic PTT range for full dose unfractionated heparin is 80-114 seconds. Blood specimen (specimen) 06/14/2012 2:38 PM EDT 06/14/2012 3:04 PM EDT Narrative Resulting Agency Comment Spec In Lab Bryan Iverson MD HEMATOLOGY ORDERABLE S Performing Organization Address [facility] Co de Phone Number [facility] * Prothrombin Time (06/14/2012 2:38 PM EDT) Prothrombin Time 13.3 11.9 - 14.7 sec CERNER MILLENNIUM Comment: [facility] Transfusion Committee Guidelines: INR less [...] BMP w/fasting Glucose (06/14/2012 2:38 PM EDT) [facility] Signature Glucose Fasting 117(H) 65 - 99 [...] of Diabetes Mellitus, Position Statement from the [place] Diabetes Association. ??Diabetes Care, Volume 33, Supplement 1, Aug 2009 Blood Urea Nitrogen 13 10 - 20 mg/dL CERNER MILLENNIUM Creatinine 0.72(L) 0.80 - 1.50 mg/dL [facility] MILLENNIUM Comment: Please note that the pediatric reference intervals supplied above were not validated at [facility]. Results from pediatric patients should be interpreted [...] (Bezet) 428 ms MUSE SYSTEM Calculated P Hensel 6 degrees MUSE SYSTEM Calculated R Hensel 29 degrees MUSE SYSTEM Calculated T Hensel 25 degrees MUSE SYSTEM INTERPRETATION Normal sinus [...] Coronary atherosclerosis of unspecified type of vessel, [place] or graft Smoker Tobacco use disorder Dyslipidemia [...] than 145 sec X 2 - call laundry housekeeper See Bolus dosing guidance for aPTT values [...] than 145 sec X 2 - call laundry housekeeper See Bolus dosing guidance for aPTT values [...] Karishma Malagon RN - Comment: per MD paraprofessional interpreter, hold for now) PRN Medication Order 06/13/2012 [...] Routine documented in this encounter Care Teams Tub Wash Operator Relationship Specialty Start Date End Date Sarita Lim MD [address] [place] [address] PCP - General 07/16/10 documented as of this encounter
--- OUTSIDE RECORDS SUMMARY | 2024-08-22 18:48 | XMS_ITS | Encounter Summary ---
Author Organization [facility] Address [facility] [place] [address] Care Team Providers Care Housekeeping Aide Name Role Phone Coni Lim MD Primary Care Provider [phone] Encounter Details Date Type Department Care Team (Late st Contact Info) Description 06/14/2012 Orders Only Cardiology at [address] [phone] Bryan Iverson MD [facility] CARDIOLOGY [place] [id number] Social History Tobacco Use Types Packs/Day Years [...] MD IM FILM LIBRARY ORD ERABLES RAD [address] [place] [address] documented in this encounter Visit Diagnoses Not on filedocumented in this encounter Care Teams Housekeeping Aide Relationship Specialty Start Date End Date Coni Lim MD [address] [place] [address] PCP - General 07/16/10 documented as of this encounter
--- OUTSIDE RECORDS SUMMARY | 2024-08-22 18:48 | XMS_ITS | Encounter Summary ---
Author Organization [facility] Address [facility] [place] [address] Care Team Providers Care Food Truck Caterer Name Role Phone Sarita Lim MD Primary Care Provider [phone] Encounter Details Date Type Department Care Team (Late st Contact Info) Description 07/29/2013 8:00 AM EST - 07/29/2013 9:00 AM EST Surgery [place] [phone] Edy Trimble MD [facility] [place] [address] CARDIAC CATHETERIZATION Social History Tobacco Use Types [...] appointments: During 8am-5pm Thursday through Thursday call [phone] to speak with a nurse in the cardiology clinic All other times call [phone] and ask to speak to the auditor accounting manager assistant controller. Return to work: One week Driving: No driving for 48 hours after catheterization. Follow up Appointments: PCP Call for appointment in 1-2 weeks. Wooden Box Maker You should be seen in 3-4 weeks for follow up. Please call for appointment Home oxygen therapy: N/A Arrangements for VNA/home care: none * Attachments The following attachments cannot be sent through Care Everywhere. * CARDIAC REHABILITATION: AFTER YOUR VISIT (GREEK) * CHEST PAIN (ANGINA): AFTER YOUR VISIT (GREEK) * PERCUTANEOUS CORONARY INTERVENTION: WHAT TO EXPECT AT HOME (GREEK) documented in this encounter Medications at Time [...] the Treatment of Subjects with de abby [place] Coronary Artery Lesions PI: Edy Trimble MD Pager #:[phone] Research Coordinators: GLADYS Rosenbaum, BA, PUBLIC POLICY PROFESSOR Pager #:[phone] Oneil Newsome RN Pager #: [phone] Purpose: The pivotal trial to support the [place] pre-market approval (PMA) of Absorb BVS. ABSORB III will evaluate the safety and effectiveness of the Absorb BVS System compared to the XIENCE in the treatment of subjects, including those with diabetes mellitus, with ischemic heart disease caused by up to two denovo agdaagux coronary artery lesions in separate epicardial vessels. [...] through 5 years post procedure. Study ID#: [id number], JAM NOTE: Patient must remain blinded to their assigned study device!! * Curt Silva - 07/29/2013 7:25 AM EST ABSORB III RANDOMIZED CONTROLLED TRIAL A Clinical Evaluation of Absorb??? BVS, the Everolimus Eluting Bioresorbable Vascular Scaffold in the Treatment of Subjects with de abby [place] Coronary Artery Lesions PI: Edy Trimble MD Pager #:[phone] Research Coordinators: Curt Silva, BS, BA, PUBLIC POLICY PROFESSOR Pager #:[phone] Oneil Newsome RN Pager #: [phone] Purpose: The pivotal trial to support the [place] pre-market approval (PMA) of Absorb BVS. ABSORB III will evaluate the safety and effectiveness of the Absorb BVS System compared to the XIENCE in the treatment of subjects, including those with diabetes mellitus, with ischemic heart disease caused by up to two denovo agdaagux coronary artery lesions in separate epicardial vessels. [...] - 07/29/2013 11:16 AM EST Romeo Coe [id number] 07/29/2013 48 y.o. Admission History and Physical [...] and clopidogrel per protocol. Randell Giles MD Construction Field Engineer Pager# [phone] 07/29/2013 Cardiology Attending Note: Patient seen and [...] 08/01/2013 8:56 PM ESTAssociated Order(s): SCAN DOC: GINNING OPERATOR documented in this encounter Miscellaneous Notes [...] to the outpatient cardiac rehabilitation program at [facility] was discussed. He participated briefly in the program at [facility] last year ( closest to him) but did not have a good experience so stopped. A referral will be sent to [facility] the program and the patient will be [...] with 3.5 X 18 mm [facility] 2009 post abnormal nuc stress +IW, [...] appointments: During 8am-5pm Thursday through Thursday call [phone] to speak with a nurse in the cardiology clinic All other times call [phone] and ask to speak to the auditor accounting manager assistant controller. Return to work: One week Driving: No driving for 48 hours after catheterization. Follow up Appointments: PCP Call for appointment in 1-2 weeks. Wooden Box Maker You should be seen in 3-4 weeks for follow up. Please call for appointment Home oxygen therapy: N/A Arrangements for VNA/home care: none General Instructions None Future Appointments and Orders Future Orders Please Complete By Expires Referral to Cardiac Rehab [[id number] Custom] Process Instructions: If no progress note charted, please enter Clinical details in comments. Scheduling Instructions: Comments: Cardiac rehab @ [facility] Questions: Responses: Reason for referral angina, stent Provider Contact Information: Dr. Atilio Giles Section of Cardiology [facility] [phone] Discharge References/Attachments: Discharge References/Attachments None Signed: Turner [...] Procedure Name Priority Date/Time Associated Diagnosis Comments GINNING OPERATOR SCAN 08/01/2013 8:56 PM EST EKG [...] 07/29/2013 4:53 PM EST CARDIAC ENZYMES ([facility]) STAT 07/29/2013 12:53 PM EST POCT GLUCOSE Routine 07/29/2013 12:36 PM EST EKG 12-LEAD Routine 07/29/2013 11:26 AM EST ASCVD (arteriosclerotic cardiovascular disease) CARDIAC ENZYMES ([facility]) Routine 07/29/2013 10:55 AM EST MISCELLANEOUS LAB REQUEST Routine 07/29/2013 9:24 AM EST EKG 12-LEAD Routine 07/29/2013 7:50 AM EST ASCVD (arteriosclerotic cardiovascular disease) POCT GLUCOSE Routine 07/29/2013 7:46 AM EST ELECTROLYTES PANEL STAT 07/29/2013 6: 06 AM EST ASCVD (arteriosclerotic cardiovascular disease) documented in this encounter Results * SCAN DOC: GINNING OPERATOR (08/01/2013 8:56 PM EST) Anatomical Region [...] (Bezet) 405 ms MUSE SYSTEM Calculated P [place] 7 degrees MUSE SYSTEM Calculated R [place] 24 degrees MUSE SYSTEM Calculated T [place] 20 degrees MUSE SYSTEM INTERPRETATION Normal sinus rhythm Normal ECG When compared with ECG of 29-JUL-2013 11:26, No significant change was found Confirmed by MD JACKSON, [place] ([id number]) on 07/30/2013 11:46:49 AM MUSE SYSTEM 07/30/2013 8:41 AM EST 07/30/2013 11:46 AM EST Edy Damon MD ECG ORDERABLES MUSE SYSTEM * POCT Glucose (07/30/2013 8:09 AM EST) Glucose, POC 156 60 - 199 mg/dL [facility] Comment: Supplemental ranges: <110 mg/dL before meals <200 mg/dL all other times of the day Blood specimen (specimen) 07/30/2013 8:09 AM EST 07/30/2013 8:09 AM EST Supa Lopez MD POINT OF CARE TEST ORDERABLES [facility] * Differential, Automated (07/30/2013 6:35 AM EST) Neutrophil % 60.0 34.0 - 71.0 % [facility] Neutrophil Absolute 5.42 1.50 - 6.30 x10(3)/mcL [facility] Lymph % 27.8 19.0 - [...] Edy Damon MD HEMATOLOGY ORDERABLE [facility] * CBC (with Diff) (07/30/2013 [...] Edy Damon MD [facility]EMATOLOGY ORDERABLE [facility] * (ABNORMAL) Lipid panel (fasting) (07/30/2013 6:30 AM EST) Cholesterol, Total 154 <=199 mg/dL [facility] Comment: Recommendations of the NCEP Adult Treatment Panel for the following risk cutoff thresholds for the [place] population: Desirable: <200 mg/dL Borderline High: 200-239 mg/dL High: > or = 240 mg/dL Triglyceride 156(H) <=149 mg/dL [facility] Comment: Reference Range: Normal triglycerides: ??<150 mg/dL Borderline high: ??150-199 mg/dL High: ??200-499 mg/dL Very high: ??>hm=366 mg/dL RACHEL 2001; 285(19):5224-8596 HDL Cholesterol 36(L) >=40 mg/dL [facility] Comment: Reference range: ??Low HDL: ?? < 40 mg/dL ??Normal: ?40-60 mg/dL ??Desirable: > 60 mg/dL RACHEL 2001; 285(19):4676-0728 LDL Cholesterol 87 <=99 mg/dL [facility] Comment: Reference range: ?? Optimal: ?<100 mg/dL ?? Near Optimal/Above Optimal: ?? 100-129 mg/dL ?? Borderline high: ?130-159 mg/dL ?? High: ? 160-189 mg/dL ?? Very high: ?>um=210 mg/dL RACHEL 2001: 285(19):6107-0999 Cholesterol/HDL Ratio 4.3 ratio [facility] Comment: A Cholesterol to HDL ratio below 4:1 is desirable. ??Studies suggest that increased CAD risk occurs at ratios above 5 for females and above 6 for men. ? [place] Heart Association ??(http://www.americanheart.org) ? Pallavi Int Med, 1994; 121:641 ? AM J Med, 1998; 105(1A):48S Blood specimen (specimen) 07/30/2013 6:30 AM EST 07/30/2013 6:44 AM EST Narrative Resulting Agency Comment Spec In Lab Edy Damon MD CHEMISTRY ORDERABLES [facility] * (ABNORMAL) BMP w/fasting Glucose (07/30/2013 [...] of Diabetes Mellitus, Position Statement from the [place] Diabetes Association. ??Diabetes Care, Volume 33, Supplement 1, Aug 2009 Blood Urea Nitrogen 11 10 - 20 mg/dL [facility] Creatinine 0.62(L) 0.80 - 1.50 mg/dL [facility] Comment: Please note that the pediatric reference intervals supplied above were not validated at [facility]. Results from pediatric patients should [...] consensus document of the Joint Society of Cardiology/[place] College of Cardiology Committee for the redefinition of myocardial infarction. ??Journal of the [place] College of Cardiology 2000; 36: 959-969] Creatine Kinase 60 0 - 200 unit/L [facility] Blood specimen (specimen) 07/30/2013 6:30 AM EST 07/30/2013 6:44 AM EST Narrative Resulting Agency Comment Spec In Lab Edy Damon MD CHEMISTRY ORDERABLES Performing Organization Address [facility] de Phone Number [facility] * Miscellaneous Lab request (07/30/2013 6:00 AM EST) Label Request received in lab. [facility] Blood specimen (specimen) 07/30/2013 6:00 AM EST 07/30/2013 6:31 AM EST Edy Damon MD LAB SEND OUT ORDERAB LES Performing Organization Address [facility] de Phone Number [facility] * POCT Glucose (07/30/2013 4:18 AM EST) Glucose, POC 145 60 - 199 mg/dL [facility] Comment: Supplemental ranges: <110 mg/dL before meals <200 mg/dL all other times of the day Blood specimen (specimen) 07/30/2013 4:18 AM EST 07/30/2013 4:18 AM EST Supa Lopez MD POINT OF CARE TEST ORDERABLES Performing Organization Address [facility]/ZIP Co de Phone Number [facility] * POCT Glucose (07/30/2013 12:17 AM EST) Glucose, POC 129 60 - 199 mg/dL [facility] Comment: Supplemental ranges: <110 mg/dL before meals <200 mg/dL all other times of the day Blood specimen (specimen) 07/30/2013 12:17 AM EST 07/30/2013 12:17 AM EST Supa Lopez MD POINT OF CARE TEST ORDERABLES Performing Organization Address [facility] de Phone Number [facility] * POCT Glucose (07/29/2013 8:02 PM EST) Glucose, POC 127 60 - 199 mg/dL [facility] Comment: Supplemental ranges: <110 mg/dL before meals <200 mg/dL all other times of the day Blood specimen (specimen) 07/29/2013 8:02 PM EST 07/29/2013 8:02 PM EST Supa Lopez MD POINT OF CARE TEST ORDERABLES Performing Organization Address [facility] de Phone Number [facility] * Miscellaneous Lab request (07/29/2013 6:05 PM EST) Label Request received in lab. [facility] Blood specimen (specimen) 07/29/2013 6:05 PM EST 07/29/2013 6:17 PM EST Edy Damon MD LAB SEND OUT ORDERAB LES Performing Organization Address [facility] Co de Phone Number [facility] * POCT Glucose (07/29/2013 4:53 PM EST) Glucose, POC 138 60 - 199 mg/dL [facility] Comment: Supplemental ranges: <110 mg/dL before meals <200 mg/dL all other times of the day Blood specimen (specimen) 07/29/2013 4:53 PM EST 07/29/2013 4:53 PM EST Supa Lopez MD POINT OF CARE TEST ORDERABLES Performing Organization Address [facility] de Phone Number [facility] * Cardiac Enzymes (07/29/2013 12:53 PM EST) Troponin-T <0.03 <=0.03 ng/mL [facility] Comment: 0.03 ng/mL: Represents the 99th [...] consensus document of the Joint Society of Cardiology/[place] College of Cardiology Committee for the redefinition of myocardial infarction. ??Journal of the [place] College of Cardiology 2000; 36: 959-969] Creatine Kinase 55 0 - 200 unit/L [facility] Blood specimen (specimen) 07/29/2013 12:53 PM EST 07/29/2013 12:59 PM EST Narrative Resulting Agency Comment Spec In Lab Edy Damon MD CHEMISTRY ORDERABLES Performing Organization Address [facility] de Phone Number [facility] * POCT Glucose (07/29/2013 12:36 PM EST) Glucose, POC 142 60 - 199 mg/dL [facility] Comment: Supplemental ranges: <110 mg/dL before meals <200 mg/dL all other times of the day Blood specimen (specimen) 07/29/2013 12:36 PM EST 07/29/2013 12:36 PM EST Supa Lopez MD POINT OF CARE TEST ORDERABLES Performing Organization Address [facility] de Phone Number [facility] * EKG 12 Lead (07/29/2013 11:26 AM EST) Ventricular rate 67 BPM MUSE SYSTEM Atrial Rate 67 BPM MUSE SYSTEM P-R Interval 164 ms MUSE SYSTEM QRS Duration 90 ms MUSE SYSTEM Q-T Interval 394 ms MUSE SYSTEM QTC Calculated (Bezet) 416 ms MUSE SYSTEM Calculated P [place] 48 degrees MUSE SYSTEM Calculated R [place] 33 degrees MUSE SYSTEM Calculated T [place] 32 degrees MUSE SYSTEM INTERPRETATION Normal sinus rhythm Normal ECG When compared with ECG of 29-JUL-2013 07:50, (unconfirmed) No significant change was found Confirmed by MD SELINA, FRED ([id number]) on 07/30/2013 7:39:47 AM MUSE SYSTEM 07/29/2013 11:2 6 AM EST 07/30/2013 7:39 AM EST Edy Damon MD ECG ORDERABLES Performing Organization Address [facility] de Phone Number MUSE SYSTEM * Cardiac Enzymes (07/29/2013 10:55 AM EST) Troponin-T <0.03 <=0.03 ng/mL [facility] Comment: 0.03 ng/mL: Represents the 99th percentile [...] consensus document of the Joint Society of Cardiology/[place] College of Cardiology Committee for the redefinition of myocardial infarction. ??Journal of the [place] College of Cardiology 2000; 36: 959-969] Creatine Kinase 50 0 - 200 unit/L [facility] Blood specimen (specimen) 07/29/2013 10:55 AM EST 07/29/2013 11:08 AM EST Narrative Resulting Agency Comment Spec In Lab Edy Damon MD CHEMISTRY ORDERABLES Performing Organization Address [facility] de Phone Number [facility] * Miscellaneous Lab request (07/29/2013 9:24 AM EST) Label Request received in lab. [facility] Blood specimen (specimen) 07/29/2013 9:24 AM EST 07/29/2013 10:56 AM EST Edy Damon MD LAB SEND OUT ORDERAB LES Performing Organization Address [facility] Phone Number [facility] * EKG 12 Lead (07/29/2013 7:50 AM EST) Ventricular rate 72 BPM MUSE SYSTEM Atrial Rate 72 BPM MUSE SYSTEM P-R Interval 136 ms MUSE SYSTEM QRS Duration 94 ms MUSE SYSTEM Q-T Interval 372 ms MUSE SYSTEM QTC Calculated (Bezet) 407 ms MUSE SYSTEM Calculated P [place] 3 degrees MUSE SYSTEM Calculated R [place] 42 degrees MUSE SYSTEM Calculated T [place] 36 degrees MUSE SYSTEM INTERPRETATION Normal sinus rhythm Normal ECG When compared with ECG of 15-JUN-2012 12:40, No significant change was found Confirmed by MD SELINA, FRED ([id number]) on 07/30/2013 7:24:11 AM MUSE SYSTEM 07/29/2013 7:50 AM EST 07/30/2013 7:24 AM EST Edy Damon MD ECG ORDERABLES Performing Organization Address [facility] Co de Phone Number MUSE SYSTEM * POCT Glucose (07/29/2013 7:46 AM EST) Glucose, POC 160 60 - 199 mg/dL [facility] Comment: Supplemental ranges: <110 mg/dL before meals <200 mg/dL all other times of the day Blood specimen (specimen) 07/29/2013 7:46 AM EST 07/29/2013 7:46 AM EST Supa Lopez MD POINT OF CARE TEST ORDERABLES Performing Organization Address [facility] [...] Ball MD CHEMISTRY ORDERABLES Performing Organization Address [facility] Co de Phone Number [facility] documented [...] in sodium chloride 0.9% 90 mL infusion (OUTSIDE FOOD SERVER) CONTINUOUS PRN, Starting on Thu07/29/13 at 0955, [...] 07/30/13 at 0900, Until Discontinued, Routine 1342 (BANNER Hold - Provider: Admin Adt - Reason: Transfer to a Procedural area)1343 (BANNER Unhold - Provider: Admin Adt) 0826 (Given - Provider: Reina Randall RN) clopidogrel (PLAVIX) tablet 75 mg (CANCELED) 75 mg, Oral, DAILY, First dose on Thu07/29/13 at 1245, Until Discontinued, Routine 1245 (Not Given - Provider: Jessica Barr RN - Reason: See comment - Comment: pt took in a.m.)1342 (BANNER Hold - Provider: Admin Adt - Reason: Transfer to a Procedural area)1343 (BANNER Unhold - Provider: Admin Adt) 0826 (Given - Provider: Reina Randall RN) cyclobenzaprine (FLEXERIL) tablet 10 mg (CANCELED) 10 mg, Oral, NIGHTLY, First dose on Thu07/29/13 at 2100, Until Discontinued, Routine 1342 (BANNER Hold - Provider: Admin Adt - Reason: Transfer to a Procedural area)1343 (BANNER Unhold - Provider: Admin Adt)2122 (Given - Provider: Mahesh Hurt RN) diaZEPam (VALIUM) tablet 5 mg (COMPLETED) 5 mg, Oral, ONCE, 1 dose, On Thu07/29/13 at 0800, Cath (Day of Procedure), Routine 0838 (Given - Provider: Kemi Mullen, VERO) DILTiazem (DILACOR XR) XR capsule 240 mg (CANCELED) 240 mg, Oral, DAILY, First dose on 07/30/13 at 0900, Until Discontinued, Routine 1342 (BANNER Hold - Provider: Admin Adt - Reason: Transfer to a Procedural area)1343 (BANNER Unhold - Provider: Admin Adt) 0826 (Given - Provider: Reina Randall RN) diphenhydrAMINE (BENADRYL) capsule 25 mg (COMPLETED) 25 mg, Oral, ONCE, 1 dose, On Thu07/29/13 at 0800, Cath (Day of Procedure), Routine 0839 (Given - Provider: Kemi Mullen RN) DULoxetine (CYMBALTA) capsule 60 mg (CANCELED) 60 mg, Oral, 2 TIMES DAILY, First dose on Thu07/29/13 at 2100, Until Discontinued, Routine 1342 (BANNER Hold - Provider: Admin Adt - Reason: Transfer to a Procedural area)1343 (BANNER Unhold - Provider: Admin Adt)2122 (Given - Provider: Mahesh uHrt, RN) 0826 (Given - Provider: Reina Randall RN) furosemide (LASIX) tablet 20 mg (CANCELED) 20 mg, Oral, DAILY, First dose on Thu07/29/13 at 1245, Until Discontinued, Routine 1245 (Not Given - Provider: Jessica Barr RN - Reason: Patient/family refused)1342 (BANNER Hold - Provider: Admin Adt - Reason: Transfer to a Procedural area)1343 (BANNER Unhold - Provider: Admin Adt) 0826 (Given - Provider: Reina Randall RN) gabapentin (NEURONTIN) capsule 300 mg (CANCELED) 300 mg, Oral, 3 TIMES DAILY, First dose on Thu07/29/13 at 1500, Until Discontinued, Routine 1342 (BANNER Hold - Provider: Admin Adt - Reason: Transfer to a Procedural area)1343 (BANNER Unhold - Provider: Admin Adt)1500 (Given - [...] 07/30/13 at 0600, Until Discontinued, Routine 1342 (BANNER Hold - Provider: Admin Adt - Reason: Transfer to a Procedural area)1343 (BANNER Unhold - Provider: Admin Adt) 0638 (Given - Provider: Mahesh Hurt RN) metoprolol tartrate (LOPRESSOR) tablet 50 mg (CANCELED) 50 mg, Oral, 2 TIMES DAILY, First dose on Thu07/29/13 at 1245, Until Discontinued, Routine 1245 (Not Given - Provider: Jessica Barr RN - Reason: See comment - Comment: pt took in a.m.)1342 (BANNER Hold - Provider: Admin Adt - Reason: Transfer to a Procedural area)1343 (BANNER Unhold - Provider: Admin Adt)212 (Given - Provider: Mahesh Hurt RN) 08 (Given - Provider: Reina Randall RN) pantoprazole (PROTONIX) tablet 20 mg 20 mg, Oral, DAILY, First dose on 07/30/13 at 0900, Until Discontinued, Restricted to patients on clopidpgrel (PLAVIX) who require a proton pump inhibitor 1342 (BANNER Hold - Provider: Admin Adt - Reason: Transfer to a Procedural area)1343 (BANNER Unhold - Provider: Admin Adt) 0826 (Given - Provider: Reina Randall RN) rosuvastatin (CRESTOR) tablet 10 mg (CANCELED) 10 mg, Oral, EVERY EVENING, First dose on Thu07/29/13 at 1700, Until Discontinued, Routine 1342 (BANNER Hold - Provider: Admin Adt - Reason: Transfer to a Procedural area)1343 (BANNER Unhold - Provider: Admin Adt)1700 (Given - [...] (New Bag - Provider: Keeley Kyle RN)1342 (BANNER Hold - Provider: Admin Adt - Reason: Transfer to a Procedural area)1343 (BANNER Unhold - Provider: Admin Adt)1652 (Stopped - Provider: Jessica Barr RN) PRN Medication Order 07/28/2013 07/29/2013 07/30/2013 adenosine 90 mg in sodium chloride 0.9% 90 mL infusion (OUTSIDE FOOD SERVER) (CANCELED) CONTINUOUS PRN, Starting on Thu07/29/13 at [...] MD) documented in this encounter Care Teams Food Truck Caterer Relationship Specialty Start Date End Date Sarita Lim MD [address] [place] [address] PCP - General 07/16/10 documented as of this encounter
--- OUTSIDE RECORDS SUMMARY | 2024-08-22 18:48 | XMS_ITS | Encounter Summary ---
Author Organization [facility] [place] [address] Care Team Providers Care Earth Science Technical Officer Name Role Phone Coni Lim MD Primary Care Provider [phone] Reason for Visit * Reason Onset Date Comments Medication Refill 08/10/2013 Encounter Details Date Type Department Care Team (Late st Contact Info) Description 08/10/2013 Refill Cardiology at [address] [phone] Turner Tan MD Medication Refill Social History [...] [place] or graft documented in this encounter Care Teams Earth Science Technical Officer Relationship Specialty Start Date End Date Coni Lim MD [address] [place] [address] PCP - General 07/16/10 documented as of this encounter
--- OUTSIDE RECORDS SUMMARY | 2024-08-22 18:48 | XMS_ITS | Encounter Summary ---
[place] [address] Care Team Providers Care Food Tester Name Role Phone Coni Lim MD Primary Care Provider Reason for Visit * Reason Onset Date Comments Other 07/26/2013 PRE CATH WORK UP DIABETIC METFORMIN Encounter Details Date Type Department Care Team (Late st Contact Info) Description 07/26/2013 Telephone Cardiology at [address] [phone] Lana Damon Other (PRE CATH WORK UP [...] filedocumented in this encounter Care Teams Food Tester Relationship Specialty Start Date End Date Coni Lim MD [address] [place] [address] PCP - General 07/16/10 documented as of this encounter
--- OUTSIDE RECORDS SUMMARY | 2024-08-22 18:48 | XMS_ITS | Encounter Summary ---
Author Organization Count Includes [facility] [place] [address] Care Team Providers Care Scudding Inspector Name Role Phone Coni Lim MD Primary Care Provider [phone] Encounter Details Date Type Department Care Team (Late st Contact Info) Description 07/26/2013 Telephone Cardiology at [address] [phone] Shanell Julian CMA Social History Tobacco Use [...] on filedocumented in this encounter Care Teams Scudding Inspector Relationship Specialty Start Date End Date Coni Lim MD [address] [place] [address] PCP - General 07/16/10 documented as of this encounter
--- OUTSIDE RECORDS SUMMARY | 2024-08-22 18:48 | XMS_ITS | Encounter Summary ---
Author Organization [facility] Address [facility] [place] [address] Care Team Providers Care Supervisor [place] Name Role Phone Coni Lim MD Primary Care Provider [phone] Encounter Details Date Type Department Care Team (Late st Contact Info) Description 02/14/2014 Telephone Cardiology [facility] [place] [id number] Eros Ballard MD [facility] [place] [address] Social History Tobacco Use Types Packs/Day Years [...] started on heparin drip and transferred to [facility]. documented in this encounter Plan of Treatment Not on file documented as of this encounter Visit Diagnoses Not on filedocumented in this encounter Care Teams Supervisor [place] Relationship Specialty Start Date End Date Coni Lim MD [address] [place] [address] PCP - General 07/16/10 documented as of this encounter
--- OUTSIDE RECORDS SUMMARY | 2024-08-22 18:48 | XMS_ITS | Encounter Summary ---
Author Organization [facility] Address [facility] [place] [address] Care Team Providers Care Dicer Machine Operator Name Role Phone Sarita Chew MD Primary Care Provider [phone] Reason for Referral * (Routine) - Closed by system - Referral Specialty Diagnoses / Procedures Referred By Contac t Referred To Contact Cardiac Rehabilitation Diagnoses S/P coronary artery stent placement Edy Trimble MD [facility] [place] [place] [address] Referral ID Status Reason Start Date Expiration Date Visits Requested Visits Authorized [id number] Closed by system - Referral Evaluate and Treat 07/30/2013 01/26/2014 1 1 Encounter Details Date Type Department Care Team (Late st Contact Info) Description 07/29/2013 5:57 AM EST - 07/30/2013 10:58 AM EST Hospital Encounter [place] [phone] Taylor Dickinson PA Hettleman, Bruce D, MD [facility] [address] Agusto Ball II, MD Kaplan, Aaron V, MD [facility] [place] [place] [address] ASCVD (arteriosclerotic cardiovascular disease); S/P coronary artery [...] appointments: During 8am-5pm Thursday through Thursday call [phone] to speak with a nurse in the cardiology clinic All other times call [phone] and ask to speak to the malt house kiln operator motion picture set grip. Return to work: One week Driving: No driving for 48 hours after catheterization. Follow up Appointments: PCP Call for appointment in 1-2 weeks. Manager Architecture You should be seen in 3-4 weeks for follow up. Please call for appointment Home oxygen therapy: N/A Arrangements for VNA/home care: none * Attachments The following attachments cannot be sent through Care Everywhere. * CARDIAC REHABILITATION: AFTER YOUR VISIT (FRENCH) * CHEST PAIN (ANGINA): AFTER YOUR VISIT (FRENCH) * PERCUTANEOUS CORONARY INTERVENTION: WHAT TO EXPECT AT HOME (FRENCH) documented in this encounter Medications at Time [...] mg/dL MISCELLANEOUS LAB REQUEST Component [facility] Result Request received in lab. CK-MB [...] the Treatment of Subjects with de abby [place] Coronary Artery Lesions PI: Edy Trimble MD Pager #:[phone] Research Coordinators: Curt Silva, BS, BA, ACTUARIAL SCIENCE TEACHER Pager #:[phone] Oneil Newsome, VERO Pager #: [phone] Purpose: The pivotal trial to support the [place] pre-market approval (PMA) of Absorb BVS. ABSORB III will evaluate the safety and effectiveness of the Absorb BVS System compared to the XIENCE in the treatment of subjects, including those with diabetes mellitus, with ischemic heart disease caused by up to two denovo white mountain coronary artery lesions in separate epicardial vessels. [...] through 5 years post procedure. Study ID#: [id number], JAM NOTE: Patient must remain blinded to their assigned study device!! * Curt Silva - 07/29/2013 7:25 AM EST ABSORB III RANDOMIZED CONTROLLED TRIAL A Clinical Evaluation of Absorb??? BVS, the Everolimus Eluting Bioresorbable Vascular Scaffold in the Treatment of Subjects with de abby [place]liam[place] Coronary Artery Lesions PI: Edy Trimble MD Pager #:[phone] Research Coordinators: GLADYS Rosenbaum, BA, ACTUARIAL SCIENCE TEACHER Pager #:[phone] Oneil Newsome RN Pager #: [phone] Purpose: The pivotal trial to support the US pre-market approval (PMA) of Absorb BVS. ABSORB III will evaluate the safety and effectiveness of the Absorb BVS System compared to the XIENCE in the treatment of subjects, including those with diabetes mellitus, with ischemic heart disease caused by up to two denovo white mountain coronary artery lesions in separate epicardial vessels. [...] - 07/29/2013 11:16 AM EST Romeo Coe [id number] 07/29/2013 48 y.o. Admission History and Physical [...] and clopidogrel per protocol. Randell Giles MD International Project Engineer Pager# [phone] 07/29/2013 Cardiology Attending Note: Patient seen and [...] 08/01/2013 8:56 PM ESTAssociated Order(s): SCAN DOC: HEBREW CANTOR documented in this encounter Miscellaneous Notes * [...] to the outpatient cardiac rehabilitation program at [place] was discussed. He participated briefly in the program at [facility] last year ( closest to him) but did not have a good experience so stopped. A referral will be sent to [place] the program and the patient will be [...] with 3.5 X 18 mm JACINDA - [facility] 2009 post abnormal nuc stress [...] appointments: During 8am-5pm Thursday through Thursday call [phone] to speak with a nurse in the cardiology clinic All other times call [phone] and ask to speak to the malt house kiln operator motion picture set grip. Return to work: One week Driving: No driving for 48 hours after catheterization. Follow up Appointments: PCP Call for appointment in 1-2 weeks. Manager Architecture You should be seen in 3-4 weeks for follow up. Please call for appointment Home oxygen therapy: N/A Arrangements for VNA/home care: none General Instructions None Future Appointments and Orders Future Orders Please Complete By Expires Referral to Cardiac Rehab [[id number] Custom] Process Instructions: If no progress note charted, please enter Clinical details in comments. Scheduling Instructions: Comments: Cardiac rehab @ [place] Questions: Responses: Reason for referral angina, stent Provider Contact Information: Dr. Atilio Giles Section of Cardiology [facility] [phone] Discharge References/Attachments: Discharge References/Attachments None Signed: Turner [...] Procedure Name Priority Date/Time Associated Diagnosis Comments HEBREW CANTOR SCAN 08/01/2013 8:56 PM EST EKG 12-LEAD Routine 07/30/2013 8:41 AM EST ASCVD (arteriosclerotic cardiovascular disease) POCT GLUCOSE Routine 07/30/2013 8:09 AM EST DIFFERENTIAL, AUTOMATED Routine 07/30/2013 6:35 AM EST CBC (WITH DIFF) Routine 07/30/2013 6:35 AM EST BMP W/FASTING GLUCOSE Routine 07/30/2013 6:30 AM EST CARDIAC ENZYMES ([facility] [place]CGP) Routine 07/30/2013 6:30 AM EST LIPID PANEL (REFLEX DIRECT LDL) Routine 07/30/2013 6:30 AM EST MISCELLANEOUS LAB REQUEST Timed 07/30/2013 6:00 AM EST POCT GLUCOSE Routine 07/30/2013 4:18 AM EST POCT GLUCOSE Routine 07/30/2013 12:17 AM EST POCT GLUCOSE Routine 07/29/2013 8:02 PM EST MISCELLANEOUS LAB REQUEST Timed 07/29/2013 6:05 PM EST POCT GLUCOSE Routine 07/29/2013 4:53 PM EST CARDIAC ENZYMES ([facility] [place]CGP) STAT 07/29/2013 12:53 PM EST POCT GLUCOSE Routine 07/29/2013 12:36 PM EST EKG 12-LEAD Routine 07/29/2013 11:26 AM EST ASCVD (arteriosclerotic cardiovascular disease) CARDIAC ENZYMES ([facility] [place]CGP) Routine 07/29/2013 10:55 AM EST MISCELLANEOUS LAB REQUEST Routine 07/29/2013 9:24 AM EST EKG 12-LEAD Routine 07/29/2013 7:50 AM EST ASCVD (arteriosclerotic cardiovascular disease) POCT GLUCOSE Routine 07/29/2013 7:46 AM EST ELECTROLYTES PANEL STAT 07/29/2013 6: 06 AM EST ASCVD (arteriosclerotic cardiovascular disease) documented in this encounter Results * SCAN DOC: HEBREW CANTOR (08/01/2013 8:56 PM EST) Anatomical Region Laterality [...] (Bezet) 405 ms MUSE SYSTEM Calculated P [place] 7 degrees MUSE SYSTEM Calculated R [place] 24 degrees MUSE SYSTEM Calculated T [place] 20 degrees MUSE SYSTEM INTERPRETATION Normal sinus rhythm Normal ECG When compared with ECG of 29-JUL-2013 11:26, No significant change was found Confirmed by MD JACKSON, [place] ([id number]) on 07/30/2013 11:46:49 AM MUSE SYSTEM 07/30/2013 [...] AM EST 07/30/2013 8:09 AM EST Supa Lpoez MD POINT OF CARE TEST ORDERABLES CERNER [...] S Performing Organization Address [facility] Co de Phone Number CERANNABEL CLEMENSIUM * [...] MD HEMATOLOGY ORDERABLE S Performing Organization Address City/[facility] Co de Phone Number TANG NORTON * (ABNORMAL) Lipid panel (fasting) (07/30/2013 6:30 AM EST) Cholesterol, Total 154 <=199 mg/dL CERNER MILLENNIUM Comment: Recommendations of the NCEP Adult Treatment Panel for the following risk cutoff thresholds for the [place] population: Desirable: <200 mg/dL Borderline High: 200-239 mg/dL High: > or = 240 mg/dL Triglyceride 156(H) <=149 mg/dL CERNER MILLENNIUM Comment: Reference Range: Normal triglycerides: ??<150 mg/dL Borderline high: ??150-199 mg/dL High: ??200-499 mg/dL Very high: ??>dv=628 mg/dL RACHEL 2001; 285(19):1770-2090 HDL Cholesterol 36(L) >=40 mg/dL [facility] Comment: Reference range: ??Low HDL: ?? < 40 mg/dL ??Normal: ?40-60 mg/dL ??Desirable: > 60 mg/dL RACHEL 2001; 285(19):1682-4923 LDL Cholesterol 87 <=99 mg/dL [facility] Comment: Reference range: ?? Optimal: ?<100 mg/dL ?? Near Optimal/Above Optimal: ?? 100-129 mg/dL ?? Borderline high: ?130-159 mg/dL ?? High: ? 160-189 mg/dL ?? Very high: ?>jt=304 mg/dL RACHEL 2001: 285(19):4907-8223 Cholesterol/HDL Ratio 4.3 ratio [facility] Comment: A Cholesterol to HDL ratio below 4:1 is desirable. ??Studies suggest that increased CAD risk occurs at ratios above 5 for females and above 6 for men. ? [place] Heart Association ??(http://www.americanheart.org) ? Pallavi Int Med, 1994; 121:641 ? AM J Med, 1998; 105(1A):48S Blood specimen (specimen) 07/30/2013 6:30 AM EST 07/30/2013 6:44 AM EST Narrative Resulting Agency Comment Spec In Lab Edy Damon MD CHEMISTRY ORDERABLES [facility] * (ABNORMAL) BMP w/fasting Glucose (07/30/2013 6:30 AM EST) [facility] Glucose Fasting 156(H) 65 - 99 mg/dL [...] of Diabetes Mellitus, Position Statement from the [place] Diabetes Association. ??Diabetes Care, Volume 33, Supplement 1, Aug 2009 Blood Urea Nitrogen 11 10 - 20 mg/dL CERNER MILLENNIUM Creatinine 0.62(L) 0.80 - 1.50 mg/dL CERNER MILLENNIUM Comment: Please note that the pediatric reference intervals supplied above were not validated at [facility] [place]. Results from pediatric patients should be interpreted [...] Damon MD CHEMISTRY ORDERABLES Performing Organization Address [facility] de Phone Number TANG JENSENScreenleapEMORY * Cardiac Enzymes (07/30/2013 6:30 AM EST) [facility] Troponin-T <0.03 <=0.03 ng/mL [facility] Comment: 0.03 ng/mL: Represents the 99th percentile [...] consensus document of the Joint Society of Cardiology/[place] College of Cardiology Committee for the redefinition of myocardial infarction. ??Journal of the [place] College of Cardiology 2000; 36: 959-969] Creatine Kinase 60 0 - 200 unit/L [facility] Blood specimen (specimen) 07/30/2013 6:30 AM EST 07/30/2013 6:44 AM EST Narrative Resulting Agency Comment Spec In Lab Edy Damon MD CHEMISTRY ORDERABLES Performing Organization Address [facility] Co de Phone Number TANG NORTON * Miscellaneous Lab request (07/30/2013 6:00 AM EST) Label Request received in lab. [facility] Blood specimen (specimen) 07/30/2013 6:00 AM EST 07/30/2013 6:31 AM EST Edy Damon MD LAB SEND OUT ORDERAB LES Performing Organization Address [facility] Phone Number [facility] * POCT Glucose (07/30/2013 4:18 AM EST) Glucose, POC 145 60 - 199 mg/dL [facility] Comment: Supplemental ranges: <110 mg/dL before meals <200 mg/dL all other times of the day Blood specimen (specimen) 07/30/2013 4:18 AM EST 07/30/2013 4:18 AM EST Supa Lopez MD POINT OF CARE TEST ORDERABLES Performing Organization Address [facility] Phone Number [facility] * POCT Glucose (07/30/2013 12:17 AM EST) Glucose, POC 129 60 - 199 mg/dL [facility] Comment: Supplemental ranges: <110 mg/dL before meals <200 mg/dL all other times of the day Blood specimen (specimen) 07/30/2013 12:17 AM EST 07/30/2013 12:17 AM EST Supa Lopez MD POINT OF CARE TEST ORDERABLES Performing Organization Address [facility] Phone Number [facility] * POCT Glucose (07/29/2013 8:02 PM EST) Glucose, POC 127 60 - 199 mg/dL [facility] Comment: Supplemental ranges: <110 mg/dL before meals <200 mg/dL all other times of the day Blood specimen (specimen) 07/29/2013 8:02 PM EST 07/29/2013 8:02 PM EST Supa Lopez MD POINT OF CARE TEST ORDERABLES Performing Organization Address [facility] Co de Phone Number [facility] * Miscellaneous Lab request (07/29/2013 6:05 PM EST) Pathologist [facility] Label Request received in lab. [facility] Blood specimen (specimen) 07/29/2013 6:05 PM EST 07/29/2013 6:17 PM EST Edy Damon MD LAB SEND OUT ORDERAB LES Performing Organization Address [facility] Co de Phone Number [facility] * POCT Glucose (07/29/2013 4:53 PM EST) Pathologist [facility] Glucose, POC 138 60 - 199 mg/dL [facility] Comment: Supplemental ranges: <110 mg/dL before meals <200 mg/dL all other times of the day Blood specimen (specimen) 07/29/2013 4:53 PM EST 07/29/2013 4:53 PM EST Supa Lopez MD POINT OF CARE TEST ORDERABLES Performing Organization Address [facility] de Phone Number [facility] * Cardiac Enzymes (07/29/2013 12:53 PM EST) [facility] Troponin-T <0.03 <=0.03 ng/mL [facility] Comment: 0.03 ng/mL: Represents the 99th [...] consensus document of the Joint Society of Cardiology/[place] College of Cardiology Committee for the redefinition of myocardial infarction. ??Journal of the [place] College of Cardiology 2000; 36: 959-969] Creatine Kinase 55 0 - 200 unit/L [facility] Blood specimen (specimen) 07/29/2013 12:53 PM EST 07/29/2013 12:59 PM EST Narrative Resulting Agency Comment Spec In Lab Edy Damon MD CHEMISTRY ORDERABLES Performing Organization Address [facility] Co de Phone Number [facility] * POCT Glucose (07/29/2013 12:36 PM EST) Glucose, POC 142 60 - 199 mg/dL [facility] Comment: Supplemental ranges: <110 mg/dL before meals <200 mg/dL all other times of the day Blood specimen (specimen) 07/29/2013 12:36 PM EST 07/29/2013 12:36 PM EST Supa Lopez MD POINT OF CARE TEST ORDERABLES Performing Organization Address [facility] de Phone Number [facility] * EKG 12 Lead (07/29/2013 11:26 AM EST) Ventricular rate 67 BPM MUSE SYSTEM Atrial Rate 67 BPM MUSE SYSTEM P-R Interval 164 ms MUSE SYSTEM QRS Duration 90 ms MUSE SYSTEM Q-T Interval 394 ms MUSE SYSTEM QTC Calculated (Bezet) 416 ms MUSE SYSTEM Calculated P [place] 48 degrees MUSE SYSTEM Calculated R [place] 33 degrees MUSE SYSTEM Calculated T [place] 32 degrees MUSE SYSTEM INTERPRETATION Normal sinus rhythm Normal ECG When compared with ECG of 29-JUL-2013 07:50, (unconfirmed) No significant change was found Confirmed by MD SELINA, FRED ([id number]) on 07/30/2013 7:39:47 AM MUSE SYSTEM 07/29/2013 11:2 6 AM EST 07/30/2013 7:39 AM EST Edy Damon MD ECG ORDERABLES Performing Organization Address [facility] Co de Phone Number MUSE [...] consensus document of the Joint Society of Cardiology/[place] College of Cardiology Committee for the redefinition of myocardial infarction. ??Journal of the [place] College of Cardiology 2000; 36: 959-969] Creatine Kinase 50 0 - 200 unit/L [facility]ANG [facility]ORT[facility] Blood specimen (specimen) 07/29/2013 10:55 AM EST 07/29/2013 11:08 AM EST Narrative Resulting Agency Comment Spec In Lab Edy Damon MD CHEMISTRY ORDERABLES Performing Organization Address [facility] Co de Phone Number TANG NORTON * Miscellaneous Lab request (07/29/2013 9:24 AM EST) Label Request received in lab. [facility]ANG NORTON Blood specimen (specimen) 07/29/2013 9:24 AM EST 07/29/2013 10:56 AM EST Edy Damon MD LAB SEND OUT ORDERAB LES Performing Organization Address [facility] Co de Phone Number TANG NORTON * EKG 12 Lead (07/29/2013 7:50 AM EST) Ventricular rate 72 BPM MUSE SYSTEM Atrial Rate 72 BPM MUSE SYSTEM P-R Interval 136 ms MUSE SYSTEM QRS Duration 94 ms MUSE SYSTEM Q-T Interval 372 ms MUSE SYSTEM QTC Calculated (Bezet) 407 ms MUSE SYSTEM Calculated P [place] 3 degrees MUSE SYSTEM Calculated R [place] 42 degrees MUSE SYSTEM Calculated T [place] 36 degrees MUSE SYSTEM INTERPRETATION Normal sinus rhythm Normal ECG When compared with ECG of 15-JUN-2012 12:40, No significant change was found Confirmed by MD MARKS ALAN ([id number]) on 07/30/2013 7:24:11 AM MUSE SYSTEM 07/29/2013 7:50 AM EST 07/30/2013 7:24 AM EST Edy Damon MD ECG ORDERABLES Performing Organization Address [facility] de Phone Number MUSE SYSTEM * POCT Glucose (07/29/2013 7:46 AM EST) Glucose, POC 160 60 - 199 mg/dL [facility] MILLENNIUM Comment: Supplemental ranges: <110 mg/dL before meals <200 mg/dL all other times of the day Blood specimen (specimen) 07/29/2013 7:46 AM EST 07/29/2013 7:46 AM EST Supa Lopez MD POINT OF CARE TEST ORDERABLES Performing Organization Address [facility] de Phone Number CERNER MILLENNIUM * (ABNORMAL) [...] Ball MD CHEMISTRY ORDERABLES Performing Organization Address [facility]/State/ZIP Co de Phone Number TANG NORTON documented in this encounter Visit Diagnoses Diagnosis CAD (coronary artery disease), non-obstructive- Primary Coronary atherosclerosis of unspecified type of vessel, white mountain or graft ASCVD (arteriosclerotic cardiovascular disease) Unspecified [...] Reason: Transfer to a Procedural area)1343 ([facility] Unhold - Provider: Admin Adt) 0826 [...] Reason: Transfer to a Procedural area)1343 ([facility] Unhold - Provider: Admin Adt) 0826 (Given - Provider: Reina Randall RN) cyclobenzaprine (FLEXERIL) tablet 10 mg (CANCELED) 10 mg, Oral, NIGHTLY, First dose on Thu07/29/13 at 2100, Until Discontinued, Routine 1342 (OCT Hold - Provider: Admin Adt - Reason: Transfer to a Procedural area)1343 ([facility] Unhold - Provider: Admin Adt)2122 (Given - Provider: Mahesh Hurt RN) diaZEPam (VALIUM) tablet 5 mg (COMPLETED) 5 mg, Oral, ONCE, 1 dose, On Thu07/29/13 at 0800, Cath (Day of Procedure), Routine 0838 (Given - Provider: Kemi Mullen, RN) DILTiazem (DILACOR XR) XR capsule 240 mg (CANCELED) 240 mg, Oral, DAILY, First dose on Thu07/30/13 at 0900, Until Discontinued, Routine 1342 ([facility] Hold - Provider: Admin Adt - Reason: Transfer to a Procedural area)1343 ([facility] Unhold - Provider: Admin Adt) 0826 [...] at 2100, Until Discontinued, Routine 1342 ([facility] Hold - Provider: Admin Adt - Reason: Transfer to a Procedural area)1343 ([facility] Unhold - Provider: Admin Adt)2122 (Given - Provider: Mahesh Hurt RN) 08 (Given - Provider: Reina Randall RN) furosemide (LASIX) tablet 20 mg (CANCELED) 20 mg, Oral, DAILY, First dose on Thu07/29/13 at 1245, Until Discontinued, Routine 1245 (Not Given - Provider: Jessica Barr RN - Reason: Patient/family refused)1342 ([facility] Hold - Provider: Admin Adt - Reason: Transfer to a Procedural area)1343 ([facility] Unhold - Provider: Admin Adt) 0826 (Given - Provider: Reina Randall RN) gabapentin (NEURONTIN) capsule 300 mg (CANCELED) 300 mg, Oral, 3 TIMES DAILY, First dose on Thu07/29/13 at 1500, Until Discontinued, Routine 1342 ([facility] Hold - Provider: Admin Adt - Reason: Transfer to a Procedural area)1343 ([facility] Unhold - Provider: Admin Adt)1500 (Given [...] - Comment: pt took in a.m.)1342 ([facility] Hold - [...] Reason: Transfer to a Procedural area)1343 ([facility] Unhold - Provider: Admin Adt) 0826 (Given - Provider: Reina Randall RN) rosuvastatin (CRESTOR) tablet 10 mg (CANCELED) 10 mg, Oral, EVERY EVENING, First dose on Thu07/29/13 at 1700, Until Discontinued, Routine 1342 (OCT Hold - Provider: Admin Adt - Reason: Transfer to a Procedural area)1343 ([facility] Unhold - Provider: Admin Adt)1700 (Given [...] Reason: Transfer to a Procedural area)1343 ([facility] Unhold - Provider: Admin Adt)1652 (Stopped - Provider: Jessica Barr RN) PRN Medication Order 07/28/2013 07/29/2013 07/30/2013 adenosine 90 mg in sodium chloride 0.9% 90 mL infusion (COMPUTATIONAL BIOLOGIST) (CANCELED) CONTINUOUS PRN, Starting on Thu07/29/13 at [...] MD) documented in this encounter Care Teams Dicer Machine Operator Relationship Specialty Start Date End Date Sarita Chew MD [address] [place] [address] PCP - General 07/16/10 documented as of this encounter
--- OUTSIDE RECORDS SUMMARY | 2024-08-22 18:48 | XMS_ITS | Encounter Summary ---
Author Organization [facility] [place] [address] Care Team Providers Care Light Out Examiner Name Role Phone Coni Lim MD Primary Care Provider [phone] Encounter Details Date Type Department Care Team (Late st Contact Info) Description 06/04/2012 Telephone [place] [address] Chester Pitts, RN Social History Tobacco Use [...] on filedocumented in this encounter Care Teams Light Out Examiner Relationship Specialty Start Date End Date Coni Lim MD [address] [place] [address] PCP - General 07/16/10 documented as of this encounter
--- OUTSIDE RECORDS SUMMARY | 2024-08-22 18:48 | XMS_ITS | Encounter Summary ---
Author Organization Formerly [facility], [facility] [place] [address] Care Team Providers Care Plaque Maker Name Role Phone Coni Lim MD Primary Care Provider [phone] Encounter Details Date Type Department Care Team (Late st Contact Info) Description 11/17/2013 Abstract Cardiology at [address] [address] Anastasiya Paulino, RN Social History Tobacco Use [...] on filedocumented in this encounter Care Teams Plaque Maker Relationship Specialty Start Date End Date Coni Lim MD [address] [place] [address] PCP - General 07/16/10 documented as of this encounter
--- OUTSIDE RECORDS SUMMARY | 2024-08-22 18:48 | XMS_ITS | Encounter Summary ---
Author Organization [facility] Address [facility] [place] [address] Care Team Providers Care Inspector Plating Name Role Phone Coni Lim MD Primary Care Provider [phone] Encounter Details Date Type Department Care Team (Latest Contact Info) Description 07/30/2013 5:12 AM EST - 07/30/2013 11:59 PM [facility] Hospital Encounter ZLEB 4A [facility] [place] [address] [facility] [place] [address] Discharge Disposition: Home Social History Tobacco Use [...] Kinase 54 0 - 200 unit/L CERNER LIN TVENNIUM CK-MB 1.8 0.0 - 5.0 mcg/L CERNER MILLENNIUM CKMB Index 3.3 0.0 - 5.0 mcg/u CERNER LIN TVENNIUM Blood specimen (specimen) 07/30/2013 6:00 AM EST 07/30/2013 6:32 AM EST Narrative Resulting Agency Comment Spec In Lab Edy Damon MD CHEMISTRY ORDERABLES Performing Organization Address City/State/[facility] Co nd Phone Number [facility] documented in this encounter Visit Diagnoses Not on filedocumented in this encounter Care Teams Inspector Plating Relationship Specialty Start Date End Date Coni Lim MD [address] [place] [address] PCP - General 07/16/10 documented as of this encounter
--- OUTSIDE RECORDS SUMMARY | 2024-08-22 18:48 | XMS_ITS | Encounter Summary ---
Author Organization Formerly [facility], [facility] Address [facility] [place] [address] Care Team Providers Care Superintendent Sales Name Role Phone Sarita Chew MD Primary Care Provider [phone] Encounter Details Date Type Department Care Team (Latest Contact Info) Description 06/03/2012 5:57 PM EDT - 06/04/2012 10:33 AM EDT Hospital Encounter [place] [id number] Kathie Cotter MD [facility] [place] [address] CAD (coronary artery disease), non-obstructive; S/P coronary [...] appointments: During 8am-5pm Thursday through Thursday call [phone] to speak with a nurse in the cardiology clinic All other times call [phone] and ask to speak to the panel saw operator control panel tester. Return to work: One week Driving: No driving for 48 hours after catheterization. Follow up Appointments: PCP: SARITA CHEW MD , Call for appointment in 1-2 weeks. Liquid Flavor Compounder: Dr Leyva, You should be seen in 3-4 weeks for follow up. Please call for appointment * Attachments The following attachments cannot be sent through Care Everywhere. * PERCUTANEOUS CORONARY INTERVENTION: WHAT TO EXPECT AT HOME (PALESTINIAN) * CHEST PAIN (ANGINA): AFTER YOUR VISIT (PALESTINIAN) documented in this encounter Medications at Time [...] NSR Meds: Current facility-administered medications ordered in [facility] Medication Dose Route Frequency Provider [...] ??? DISCONTD: bivalirudin (ANGIOMAX) injection Once PRN Kathei Cotter MD Last Dose: 83.3 mg at 06/03/12 1509 ??? DISCONTD: bivalirudin (ANGIOMAX) 250 mg in sodium chloride 0.9% 50 mL infusion (BUCKLER AND LACER) Intravenous Continuous PRN Kathie Cotter MD Last Dose: 194.3 mg/hr at 06/03/12 1509 ??? DISCONTD: adenosine 90 mg in sodium chloride 0.9% 90 mL infusion (BUCKLER AND LACER) Intravenous Continuous PRN Kathie Cotter MD Last [...] Family History: Father-, pre-mature CAD (age 46), NM, CABG Uncle +CAD Mother, DM, HTN. HLP [...] [facility] Dr Le[facility]va in March; [facility]DA [facility]. 2. HTN, stable, [...] 06/04/2012 10:04 PM EDTAssociated Order(s): SCAN DOC: MACHINE CHOCOLATE MOLDER * Provider, Scanning - 06/03/2012 4:39 PM [...] outpatient cardiac rehabilitation program at [facility] was discussed. A referral will be [...] appointments: During 8am-5pm Thursday through Thursday call [phone] to speak with a nurse in the cardiology clinic All other times call [phone] and ask to speak to the panel saw operator control panel tester. Return to work: One week Driving: No driving for 48 hours after catheterization. Follow up Appointments: PCP: SARITA CHEW MD , Call for appointment in 1-2 weeks. Liquid Flavor Compounder: Dr Leyva, You should be seen in 3-4 weeks for follow up. Please call for appointment General Instructions None Future Appointments and Orders Future Appointments: Provider: Department: Dept Phone: Center: 06/04/2012 4:45 PM Echo Inpatient Add-On [facility] Non-Inv Card Lab [phone] None Provider Contact Information: Dr. Kathie Stephen Section of Cardiology [facility] [phone] Discharge References/Attachments: Discharge References/Attachments None Signed: Bryan Stephen MD DATE: 06/04/2012 * Miscellaneous - Provider, Scanning - 06/03/2012 11:02 AM EDT documented in this encounter Plan of Treatment Not on file documented as of this encounter Procedures Procedure Name Priority Date/Time Associated Diagnosis Comments CARDIAC CATHETERIZATION Routine 06/07/20 2:15 PM EDT MACHINE CHOCOLATE MOLDER SCAN 06/04/2012 10:04 PM EDT ECHOCARDIOGRAM TRANSTHORACIC [...] CAD (coronary artery disease), non-obstructive CARDIAC ENZYMES ([facility]) STAT 06/03/2012 4:00 PM EDT CARDIAC CATHETERIZATION 06/03/20 12 2:02 PM EDT CP POCT GLUCOSE Routine 06/03/2012 11:11 AM EDT documented in this encounter Results * Cardiac Catheterization (06/07/2012 2:15 PM EDT) Anatomical Region Laterality Modality Other Narrative 06/03/2012 4:39 PM EDT Procedure Note Provider, Scanning - 06/03/2012 4:39 PM EDT Kathie Cotter MD CARDIAC CATH ORDERAB LES * SCAN DOC: MACHINE CHOCOLATE MOLDER (06/04/2012 10:04 PM EDT) Anatomical Region Laterality Modality Other Narrative 06/06/2012 2:36 AM EDT Procedure Note Provider, Scanning - 06/04/2012 10:04 PM EDT Scanning Provider MEDIA MGR SCAN EXT O RDR/RSLT * Echo Transthoracic (Complete) (06/04/2012 8:57 AM EDT) [facility] Signature EF 60 HEART[employer]vue SYSTEM Anatomical Region Laterality Modality Other 06/04/2012 Narrative 06/04/2012 9:13 AM EDT Procedure: ? Transthoracic Echocardiogram Patient: ? COELHO ROMEO A ?(Age): 1965(46) Med Rec#: ?[id number] ? Sex: ?M ? Site Loc: ?[facility] ? Ht / Wt: ??176(cm)/122(kg) Pt. Loc: ? Adult Floor ?BSA: ?2.44 Study Date: ?06/04/2012 ? Pt. Type: Inpatient Tape: ? Referring: Kathie Cotter Vice President Of Operations: Khoi Gaines [facility] Vice President Of Operations 2: Mason Duron ([id number]) Diagnosis: ??Chest pain (786.50) CPT Code(s): ??Echo Full (12468), ??Spectral Doppler (71687), ??Color Doppler (75049), ??Definity (01635AX), Indication(s): ??Chest Pain Rhythm: HR ?BP 78 [...] Mid-Inferior ?Normal ? Mid-Inferoseptal ?Normal ? [place]-Septal ? Normal ? [place]-Anterior ? Normal ? [place]-Lateral ?Normal ? [place]-Inferior ? Normal ? [place]-Tip ?Normal ? Chambers ?Value ?Units (Range) ? [...] 06/04/2012 09:12:51 Images reviewed and interpretation verified [facility] Cardiac Ultrasound Laboratory Procedure Note Christos Buchanan MD - 06/04/2012 Procedure: Transthoracic Echocardiogram Patient: LAQUITA Pop (Age): 1965(46) Med Rec#: [id number] Sex: M Site Loc: [facility] Ht / Wt: 176(cm)/122(kg) Pt. Loc: Adult Floor BSA: 2.44 Study Date: 06/04/2012 Pt. Type: Inpatient Tape: Referring: Kathie Cotter Vice President Of Operations: Khoi Gaines [facility] Vice President Of Operations 2: Mason Duron ([id number]) Diagnosis: Chest pain (786.50) CPT Code(s): Echo Full (10937), Spectral Doppler (14573), Color Doppler (45858), Definity (98050WU), Indication(s): Chest Pain Rhythm: HR BP 78 [...] Mid-Posterolateral Normal Mid-Inferior Normal Mid-Inferoseptal Normal [place]-Septal Normal [place]-Anterior Normal [place]-Lateral Normal [place]-Inferior Normal [place]-Tip Normal Chambers Value Units (Range) LV EF [...] 06/04/2012 09:12:51 Images reviewed and interpretation verified [facility] Cardiac Ultrasound Laboratory Kathie Cotter MD ECHO ORDERABLES * POCT GLUCOSE (06/04/2012 7:06 AM EDT) [facility] Glucose, POC 183 60 - 199 mg/dL [facility] Comment: Supplemental ranges: <110 mg/dL before meals <200 mg/dL all other times of the day Blood specimen (specimen) 06/04/2012 7:06 AM EDT 06/04/2012 7:06 AM EDT Kathie Cotter MD POINT OF CARE TEST O RDERABLES Performing Organization Address [facility] de Phone Number [facility] * EKG 12-LEAD (06/04/2012 6:07 AM EDT) [facility] Ventricular rate 77 BPM MUSE SYSTEM Atrial Rate 77 BPM MUSE SYSTEM P-R Interval 150 ms MUSE SYSTEM QRS Duration 92 ms MUSE SYSTEM Q-T Interval 372 ms MUSE SYSTEM QTC Calculated (Bezet) 420 ms MUSE SYSTEM Calculated P Levels 30 degrees MUSE SYSTEM Calculated R Levels 37 degrees MUSE SYSTEM Calculated T Levels 30 degrees MUSE SYSTEM INTERPRETATION Normal sinus rhythm Normal ECG When compared with ECG of 03-JUN-2012 16:38, No significant change was found Confirmed by MD Mirtha, Cali ([id number]) on 06/04/2012 1:38:26 PM MUSE SYSTEM 06/04/2012 6:07 AM EDT 06/04/2012 1:38 PM EDT Unknown ECG ORDERABLES Performing Organization Address [facility] Co de Phone Number MUSE SYSTEM * (ABNORMAL) BMP w/fasting Glucose (06/04/2012 6:05 AM EDT) [facility] Glucose Fasting 185(H) 65 - 99 [...] of Diabetes Mellitus, Position Statement from the [place] Diabetes Association. ??Diabetes Care, Volume 33, Supplement 1, Aug 2009 Blood Urea Nitrogen 10 10 - 20 mg/dL CERNER MILLENNIUM Creatinine 0.82 0.80 - 1.50 mg/dL CERNER MILLENNIUM Comment: Please note that the pediatric reference intervals supplied above were not validated at [facility]. Results from pediatric patients should be interpreted [...] High: ? 160-189 mg/dL ?? Very high: ?>zo=553 mg/dL RACHEL 2001: 28519):[id number] Blood specimen (specimen) 06/04/2012 4:45 AM EDT [...] Gran Absolute 0.02 0.00 - 0.05 x10(3)/mcL [facility] Blood specimen (specimen) 06/04/2012 4:45 AM EDT 06/04/2012 4:55 AM EDT Kathie Cotter MD HEMATOLOGY ORDERABLE S Performing Organization Address [facility] de Phone Number [facility] * Alkaline Phosphatase (06/04/2012 4:45 AM EDT) Alkaline Phosphatase 53 40 - 120 unit/L [facility] Blood specimen (specimen) 06/04/2012 4:45 AM EDT 06/04/2012 4:55 AM EDT Narrative Resulting Agency Comment Spec In Lab Kathie Cotter MD CHEMISTRY ORDERABLES Performing Organization Address [facility] de Phone Number [facility] * Alanine Aminotransferase (06/04/2012 4:45 AM EDT) Alanine Aminotransferase 31 0 - 55 unit/L [facility] Blood specimen (specimen) 06/04/2012 4:45 AM EDT 06/04/2012 4:55 AM EDT Narrative Resulting Agency Comment Spec In Lab Kathie Cotter MD CHEMISTRY ORDERABLES Performing Organization Address [facility] de Phone Number [facility] * Aspartate Aminotransferase (06/04/2012 4:45 AM EDT) Aspartate Aminotransferase 31 0 - 39 unit/L [facility] Blood specimen (specimen) 06/04/2012 4:45 AM EDT 06/04/2012 4:55 AM EDT Narrative Resulting Agency Comment Spec In Lab Kathie Cotter MD CHEMISTRY ORDERABLES Performing Organization Address [facility] Co de Phone Number [facility]ANG [facility] * (ABNORMAL) Hemoglobin A1c (06/04/2012 4:45 AM EDT) Hemoglobin A1c 6.5(H) 4.3 - 6.1 % [facility] Estimated Average Glucose 140 mg/dL [facility] Comment: eAG equivalents for HbA1c percentages: [...] into estimated average glucose values. ??Diabetes Care 2008:31(8):4664-2513. Blood specimen (specimen) 06/04/2012 4:45 AM EDT 06/04/2012 4:55 AM EDT Narrative Resulting Agency Comment Spec In Lab Kathie Cotter MD CHEMISTRY ORDERABLES Performing Organization Address [facility] Co de Phone Number TANG NORTON * (ABNORMAL) Lipid panel (fasting) (06/04/2012 4:45 AM EDT) [facility] Cholesterol, Total 186 <=199 mg/dL [facility] Comment: Recommendations of the NCEP Adult Treatment Panel for the following risk cutoff thresholds for the [place] population: Desirable: <200 mg/dL Borderline High: 200-239 mg/dL High: > or = 240 mg/dL Triglyceride 412(H) <=149 mg/dL [facility] Comment: Reference Range: Normal triglycerides: ??<150 mg/dL Borderline high: ??150-199 mg/dL High: ??200-499 mg/dL Very high: ??>jh=692 mg/dL RACHEL 2001; 285(19):0149-6727 HDL Cholesterol 25(L) >=40 mg/dL [facility] Comment: Reference range: ??Low HDL: ?? < 40 mg/dL ??Normal: ?40-60 mg/dL ??Desirable: > 60 mg/dL RACHEL 2001; 285(19):3184-4034 LDL Cholesterol Not Calculated <=99 mg/dL [facility] Comment: Since a calculated LDL value is not valid for triglycerides greater than 400 mg/dl, a direct LDL determination is performed instead. Reference range: ?? Optimal: ?<100 mg/dL ?? Near Optimal/Above Optimal: ?? 100-129 mg/dL ?? Borderline high: ?130-159 mg/dL ?? High: ? 160-189 mg/dL ?? Very high: ?>lj=373 mg/dL RACHEL 2001: 285(19):8967-7803 Cholesterol/HDL Ratio 7.4 ratio [facility] Comment: A Cholesterol to HDL ratio below 4:1 is desirable. ??Studies suggest that increased CAD risk occurs at ratios above 5 for females and above 6 for men. ? [place] Heart Association ??(http://www.americanheart.org) ? Pallavi Int Med, 1994; 121:641 ? AM J Med, 1998; 105(1A):48S Blood specimen (specimen) 06/04/2012 4:45 AM EDT 06/04/2012 4:55 AM EDT Narrative Resulting Agency Comment Spec In Lab Kathie Cotter MD CHEMISTRY ORDERABLES Performing Organization Address [facility] de Phone Number [facility] * (ABNORMAL) Cardiac Enzymes (06/04/2012 4:45 AM EDT) Troponin-T 0.07(H) <=0.03 ng/mL [facility] Comment: 0.03 ng/mL: Represents the 99th percentile upper reference limit for normals. >0.03 ng/mL: Elevated cardiac troponin T level indicative of myocardial damage. Diagnosis of acute, evolving or recent NM requires a typical rise and gradual fall [...] consensus document of the Joint Society of Cardiology/[place] College of Cardiology Committee for the redefinition of myocardial infarction. Journal of the [place] College of Cardiology 2000; 36: 959-969] Creatine Kinase 150 0 - 200 unit/L [facility] Comment:result rechecked-[facility] Blood specimen (specimen) 06/04/2012 4:45 AM EDT 06/04/2012 4:55 AM EDT Narrative Resulting Agency Comment Spec In Lab Kathie Cotetr MD CHEMISTRY ORDERABLES Performing Organization Address [facility] Co de Phone Number [facility] * CBC (with Diff) (06/04/2012 4:45 AM EDT) White Blood Cell 6.4 4.0 - 10.0 x10(3)/mcL [facility] Red Blood Cell 4.78 4.63 - 6.08 x10(6)/mcL [facility] MILLENNIUM Hemoglobin 14.6 13.7 - 17.5 gm/dL [facility] MILLENNIUM Hematocrit 42.7 40.0 - 51.0 % [facility] MILL[facility] Mean Cell Volume 89.3 79.0 - 92.0 fL [facility] MILL[facility]UM Mean Cell Hemoglobin 30.5 25.6 - 32.2 pg [facility] Mean Cell Hemoglobin Concentration 34.2 32.0 - 36.5 gm/dL [facility] MILLEN[facility]UM Platelet 154 145 - 370 x10(3)/mcL [facility] MILLENNIUM RDW Standard Deviation 41.0 35.0 - 46.0 fL [facility] MILLENNIUM RDW coefficient of variation 12.7 10.9 - 14.4 % [facility] Mean Platelet Volume 10.1 9.0 - 12.0 fL [facility] Blood specimen (specimen) 06/04/2012 4:45 AM EDT 06/04/2012 4:55 AM EDT Narrative Resulting Agency Comment Spec In Lab Kathie Cotter MD HEMATOLOGY ORDERABLE S Performing Organization Address [facility] Co de Phone Number [facility] * POCT GLUCOSE (06/03/2012 9:31 PM EDT) Glucose, POC 163 60 - 199 mg/dL [facility] Comment: Supplemental ranges: <110 mg/dL before meals <200 mg/dL all other times of the day Blood specimen (specimen) 06/03/2012 9:31 PM EDT 06/03/2012 9:31 PM EDT Kathie Cotter MD POINT OF CARE TEST O RDERABLES Performing Organization Address [facility] Co de Phone Number [facility] * POCT GLUCOSE (06/03/2012 6:10 PM EDT) Glucose, POC 97 60 - 199 mg/dL [facility] Comment: Supplemental ranges: <110 mg/dL before meals <200 mg/dL all other times of the day Blood specimen (specimen) 06/03/2012 6:10 PM EDT 06/03/2012 6:10 PM EDT Kathie Cotter MD POINT OF CARE TEST O RDERABLES Performing Organization Address [facility] Co de Phone Number [facility] * EKG 12 Lead (06/03/2012 4:38 PM EDT) Ventricular rate 74 BPM MUSE SYSTEM Atrial Rate 74 BPM MUSE SYSTEM P-R Interval 150 ms MUSE SYSTEM QRS Duration 92 ms MUSE SYSTEM Q-T Interval 372 ms MUSE SYSTEM QTC Calculated (Bezet) 412 ms MUSE SYSTEM Calculated P Levels 46 degrees MUSE SYSTEM Calculated R Levels 25 degrees MUSE SYSTEM Calculated T Levels 29 degrees MUSE SYSTEM INTERPRETATION Normal sinus rhythm Normal ECG When compared with ECG of 18-JAN-2010 07:42, No significant change was found Confirmed by MD Shannon Robert ([id number]) on 06/04/2012 7:52:23 AM MUSE SYSTEM 06/03/2012 4:38 PM EDT 06/04/2012 7:52 AM EDT Kathie Cotter MD ECG ORDERABLES Performing Organization Address [facility] de Phone Number MUSE SYSTEM * Cardiac Enzymes (06/03/2012 4:00 PM EDT) [facility] Troponin-T <0.03 <=0.03 ng/mL [facility] Comment: 0.03 ng/mL: Represents the 99th percentile upper reference limit for normals. >0.03 ng/mL: Elevated cardiac troponin T level indicative of myocardial damage. Diagnosis of acute, evolving or recent NM requires a typical rise and gradual fall [...] consensus document of the Joint Society of Cardiology/[place] College of Cardiology Committee for the redefinition of myocardial infarction. Journal of the [place] College of Cardiology 2000; 36: 959-969] Creatine Kinase 41 0 - 200 unit/L TANG MIKEYCHANEL Blood specimen (specimen) 06/03/2012 4:00 PM EDT 06/03/2012 4:12 PM EDT Narrative Resulting Agency Comment Spec In Lab Kathie Cotter MD CHEMISTRY ORDERABLES Performing Organization Address City/[facility]/ZIP Co de Phone Number [facility] * POCT GLUCOSE (06/03/2012 11:11 AM EDT) Glucose, POC 147 60 - 199 mg/dL [facility]KEYCHAN[facility] Comment: Supplemental ranges: <110 mg/dL before meals <200 mg/dL all other times of the day Blood specimen (specimen) 06/03/2012 11:11 AM EDT 06/03/2012 11:11 AM EDT Kathie Cotter MD POINT OF CARE TEST O RDERABLES Performing Organization Address [facility] Co de Phone Number TANG NORTON documented in this encounter Visit Diagnoses Diagnosis CAD (coronary artery disease), non-obstructive- Primary Coronary atherosclerosis of unspecified type of vessel, yuhaaviatam or graft S/P coronary artery stent placement [...] Procedure), Routine 1100 (Not Given - Provider: Xni Appiah RN - Reason: Medication Discontinued)1323 (Given [...] in sodium chloride 0.9% 90 mL infusion (BUCKLER AND LACER) (CANCELED) Intravenous, CONTINUOUS PRN, Starting on Martha 06/03/12 at 1511, Until Martha 06/03/12 at 1734, Cath (Intra-Procedure), Routine 1511 (New Bag - Provider: Dustin Carlton Jr.)1521 (Stopped - Provider: Tawanda Agarwal RN) bivalirudin (ANGIOMAX) 250 mg in sodium chloride 0.9% 50 mL infusion (BUCKLER AND LACER) (CANCELED) Intravenous, CONTINUOUS PRN, Starting on Martha [...] MD) documented in this encounter Care Teams Superintendent Sales Relationship Specialty Start Date End Date Sarita Chew MD [address] [place] [address] PCP - General 07/16/10 documented as of this encounter
--- OUTSIDE RECORDS SUMMARY | 2024-08-22 18:48 | XMS_ITS | Encounter Summary ---
Author Organization [facility] [place] [address] Care Team Providers Care Hand Cloth Examiner Name Role Phone Coni Lim MD Primary Care Provider [phone] Encounter Details Date Type Department Care Team (Late st Contact Info) Description 06/04/2012 Orders Only Cardiology at [address] [address] Antonio Rivas MD CAD (coronary artery disease) [...] Coronary atherosclerosis of unspecified type of vessel, [place] or graft documented in this encounter Care Teams Hand Cloth Examiner Relationship Specialty Start Date End Date Coni Lim MD [address] [place] [address] PCP - General 07/16/10 documented as of this encounter
--- OUTSIDE RECORDS SUMMARY | 2024-08-22 18:48 | XMS_ITS | Encounter Summary ---
Author Organization [facility] [place] [address] Care Team Providers Care Sludge Mill Operator Name Role Phone Coni Lim MD Primary Care Provider [phone] Encounter Details Date Type Department Care Team (Late st Contact Info) Description 07/27/2014 Orders Only Cardiology at [address] [address] Oneil Newsome RN Research exam (Primary Dx) [...] trial documented in this encounter Care Teams Sludge Mill Operator Relationship Specialty Start Date End Date Coni Lim MD [address] [place] [address] PCP - General 07/16/10 documented as of this encounter
--- OUTSIDE RECORDS SUMMARY | 2024-08-22 18:49 | XMS_ITS | Encounter Summary ---
Author Organization [facility] Address [address] [place] [address] Care Team Providers Care Sugar Reprocess Operator Head Name Role Phone Coni Lim MD Primary Care Provider [phone] Encounter Details Date Type Department Care Team [...] on filedocumented in this encounter Care Teams Sugar Reprocess Operator Head Relationship Specialty Start Date End Date Coni Lim MD [address] [place] [id number] PCP - General 12/17/11 documented as of this encounter
--- OUTSIDE RECORDS SUMMARY | 2024-08-22 18:49 | XMS_ITS | Encounter Summary ---
Author Organization [facility] Address [address] [place] [address] Care Team Providers Care Strap Setter Name Role Phone Coni Lim MD Primary Care Provider [phone] Encounter Details Date Type Department Care Team (Late st Contact Info) Description 09/30/2021 Lab Requisition [facility] Pathology & Laboratory Medicine - [facility] [address] [place] [address] Yoon Martinez MD [address] [place] [address] [address] [place], [place] [address] Encounter for screening for malignant neoplasm of [...] Assessment Author No 03/15/2015 0:00 EDT Feliz Alcantra M * Are you blind or do [...] explore management options, if applicable. 10/01/2021 17:48 [facility] Final Diagnosis A. COLON, ASCENDING, POLYPS X5, BIOPSY: - Fragments of tubular adenomas. B. COLON, DESCENDING, POLYP, BIOPSY: - Hyperplastic polyp. C. COLON, SIGMOID, POLYPS X3, BIOPSY: - Hyperplastic polyps. D. RECTUM, POLYP, BIOPSY: - Tubular adenoma. 10/01/2021 17:48 [facility] Attestation By the signature below, the attending physician certifies that they have 1) personally conducted a gross and/or microscopic examination of the described specimen(s), and/or personally interpreted the results of laboratory testing of the described specimen(s), and 2) personally rendered or confirmed the above diagnosis. 10/01/2021 17:48 [facility] at 1748 Clinical History Colon CA screening, family Hx colon CA 10/01/2021 17:48 [facility] Gross Description A. Received in [...] D1. LENORE MACIAS(ASCP) 10/01/2021 7:36 10/01/2021 17:48 [facility] Performing Lab [facility] 10/01/2021 17:48 [facility] Scanned Images 10/01/2021 17:48 [facility] Tissue SPECIMEN FROM RECTUM / [...] Martinez MD PATHOLOGY ORDERABLES Fin al Result [facility] [address] [place] [address] documented in this encounter Visit Diagnoses Diagnosis Encounter for screening for malignant neoplasm of colon Special screening for malignant neoplasms, colon documented in this encounter Care Teams Strap Setter Relationship Specialty Start Date End Date Coni Lim MD [address] [place] [id number] PCP - General 12/17/11 documented as of this encounter
--- OUTSIDE RECORDS SUMMARY | 2024-08-22 18:49 | XMS_ITS | Encounter Summary ---
Author Organization [facility] Address [address] [place] [address] Care Team Providers Care Apigee Developer Name Role Phone Coni Lim MD Primary Care Provider [phone] Encounter Details Date Type Department Care Team (Late st Contact Info) Description 05/17/2022 Lab Requisition [facility] Pathology & Laboratory Medicine - [facility] [address] [place] [address] Outr Resulting Lab, Provider Social History Tobacco [...] Factor <8.6 <12.0 IU/mL 05/18/2022 15:59 EDT [facility] Blood VENOUS BLOOD / Unknown 05/16/2022 12:56 EDT 05/18/2022 15:42 EDT us Provider Outr Resulting Lab CHEMISTRY & BLOOD GA S ORDERABLES Final Result [facility] [address] [place] [address] * ANTI NUCLEAR AB (BERRY), IFA (05/16/2022 12:56 EDT) BERRY Interpretation Negative Negative 2021 13:48 EDT [facility] Comment:No titer performed, BERRY Screen is negative. Blood VENOUS BLOOD / Unknown 05/16/2022 12:56 EDT 05/18/2022 15:42 EDT Narrative [facility] - 05/19/2022 13:48 EDT Results were obtained with the INOVA NOVA Lite HEp-2 BERRY Kit by indirect immunofluorescence. us Provider Outr Resulting Lab IMMUNOLOGY AND SEROL OGY ORDERABLES Final Result [facility] [address] [place] [address] documented in this encounter Visit Diagnoses Not on filedocumented in this encounter Care Teams Apigee Developer Relationship Specialty Start Date End Date Coni Lim MD [address] [place] [id number] PCP - General 12/17/11 documented as of this encounter
--- OUTSIDE RECORDS SUMMARY | 2024-08-22 18:49 | XMS_ITS | Encounter Summary ---
Author Organization [facility] Address [address] [place] [address] Care Team Providers Care Press Operator Printing Name Role Phone Coni Lim MD Primary Care Provider [phone] Reason for Visit * (Routine/Next Available) - Receiving Office to Obtain Authorization Specialty Diagnoses / Procedures Referred By Contsigifredo t Referred To Contact Procedures CT OUTSIDE IMAGES HEAD AND NECK Emmy Nichols MD Phone: tel: Referral ID Status Reason Start Date Expiration Date Visits Requested Visits Authorized [id number] Receiving Office to Obtain Authorization 04/07/2023 1 1 Encounter Details Date Type Department Care Team (Latest Contact Info) Description 04/07/2023 20:14 EDT - 04/07/2023 23:44 EDT Hospital Encounter [facility] Secondary Reads [place] Discharge Disposition: [...] No 03/15/2015 0:00 CASEYT Feliz Alcantar * Because of a physical, [...] Answer Entry Date Author No 03/15/2015 0:00 CASEYTaylor Feliz Alcantar documented in this encounter Medications [...] 20:18 EDT This is a non-reportable exam. Emmy Nichols MD IMG OTHER IMAGING ORDERABLES Final Result documented in this encounter Visit Diagnoses Not on filedocumented in this encounter Care Teams Press Operator Printing Relationship Specialty Start Date End Date Coni Lim MD [address] [place] [address] PCP - General 12/17/11 documented as of this encounter
--- OUTSIDE RECORDS SUMMARY | 2024-08-22 18:49 | XMS_ITS | Clinical Summary ---
Author Organization [facility] Address [address] [place] [address] Care Team Providers Care Curtains And Draperies Salesperson Name Role Phone Coni Lim MD Primary Care Provider [phone] Allergies Active Allergy Reactions Criticality Noted Date [...] Encephalopathy 04/08/2023 Acute respiratory failure with hypoxia ([facility]) 04/08/2023 Idiopathic hypotension 04/08/2023 CVA (cerebral vascular accident) ([facility]) 03/15 Anxiety and depression 02/22/2014 Unstable angina ([facility]) 02/15/2014 CAD (coronary artery disease) 02/15/2014 Syncope Surgical History Surgery Date Site/Laterality Comments GALLBLADDER SURGERY Medical History Medical History Date Comments HTN (hypertension) HLD (hyperlipidemia) DMII (diabetes mellitus, type 2) ([facility]) CAD (coronary artery disease) Smoking Depression [...] Advance Directives For more information, please contact: [phone] * Full Code (Latest Code Status on [...] Comments 02/14/2014 22:30 02/16/2014 17:34 Care Teams Curtains And Draperies Salesperson Relationship Specialty Start Date End Date Coni Lim MD [address] [place] [address] PCP - General 12/17/11
--- OUTSIDE RECORDS SUMMARY | 2024-08-22 18:49 | XMS_ITS | Encounter Summary ---
Author Organization [facility] Address [address] [place] [address] Care Team Providers Care Wildlife Control Agent Name Role Phone Coni Lim MD Primary Care Provider [phone] Reason for Visit * (Routine/Next Available) - Receiving Office to Obtain Authorization Specialty Diagnoses / Procedures Referred By Contsigifredo t Referred To Contact Procedures CT OUTSIDE IMAGES CHEST ABDOMEN PELVIS Emmy Nichols MD Phone: tel: Referral ID Status Reason Start Date Expiration Date Visits Requested Visits Authorized [id number] Receiving Office to Obtain Authorization 04/07/2023 1 1 Encounter Details Date Type Department Care Team (Latest Contact Info) Description 04/07/2023 20:11 EDT - 04/07/2023 20:13 EDT Hospital Encounter [facility] Secondary [place]s [place] Discharge Disposition: Home or [...] on filedocumented in this encounter Care Teams Wildlife Control Agent Relationship Specialty Start Date End Date Coni Lim MD [address] [place] [address] PCP - General 12/17/11 documented as of this encounter
--- OUTSIDE RECORDS SUMMARY | 2024-08-22 18:49 | XMS_ITS | Encounter Summary ---
Author Organization [facility] Address [address] [place] [address] Care Team Providers Care Tactical/Mobile Watch Officer Name Role Phone Coni Lim MD Primary Care Provider [phone] Reason for Visit * (Routine/Next Available) - Receiving Office to Obtain Authorization Specialty Diagnoses / Procedures Referred By Contsigifredo t Referred To Contact Procedures CT OUTSIDE IMAGES CERVICAL SPINE Emmy Nichols MD Phone: tel: Referral ID Status Reason Start Date Expiration Date Visits Requested Visits Authorized [id number] Receiving Office to Obtain Authorization 04/07/2023 1 1 Encounter Details Date Type Department Care Team (Latest Contact Info) Description 04/07/2023 20:11 EDT - 04/07/2023 20:13 EDT Hospital Encounter [facility] Secondary [place] Discharge Disposition: Home [...] Assessment Author No 03/15/2015 0:00 EDT Feliz Alcnatar M * Do you have serious difficulty [...] EDT This is a non-reportable exam. us Emmy Nichols MD IMG OTHER IMAGING ORDERABLES Final Result documented in this encounter Visit Diagnoses Not on filedocumented in this encounter Care Teams Tactical/Mobile Watch Officer Relationship Specialty Start Date End Date Coni Lim MD [address] [place] [id number] PCP - General 12/17/11 documented as of this encounter
--- OUTSIDE RECORDS SUMMARY | 2024-08-22 18:49 | XMS_ITS | Encounter Summary ---
[place] [address] Care Team Providers Care Balloon Dipper Name Role Phone Coni Lim MD Primary Care Provider [phone] Encounter Details Date Type Department Care Team (Late st Contact Info) Description 05/28/2012 Telephone Cardiology at [address] [phone] Savanah Duncan LPN Social History Tobacco Use [...] 30 days)____work up to be done in [facility] 05/28/12 Date of EKG: work up on 05/28/12 in [facility] Medications:verified. Stop Metformin 48 hour [...] ekg dates. Information not yet available from [facility]. documented in this encounter Plan of Treatment Not on file documented as of this encounter Visit Diagnoses Not on filedocumented in this encounter Care Teams Balloon Dipper Relationship Specialty Start Date End Date Coni Lim MD [address] [place] [address] PCP - General 07/16/10 documented as of this encounter
--- OUTSIDE RECORDS SUMMARY | 2024-08-22 18:49 | XMS_ITS | Encounter Summary ---
Author Organization [facility] Address [facility] [place] [address] Care Team Providers Care Cake Stripper Name Role Phone Sarita Lim MD Primary Care Provider [phone] Encounter Details Date Type Department Care Team (Late st Contact Info) Description 06/03/2012 9:55 AM EDT - 06/03/2012 10:55 AM EDT Surgery [place] [id number] Kathie Cotter MD [facility] [place] [address] CARDIAC CATHETERIZATION Social History Tobacco Use Types [...] appointments: During 8am-5pm Thursday through Thursday call [phone] to speak with a nurse in the cardiology clinic All other times call [phone] and ask to speak to the chemical laboratory assistant furnace combustion tester. Return to work: One week Driving: No driving for 48 hours after catheterization. Follow up Appointments: PCP: SARITA LIM MD , Call for appointment in 1-2 weeks. Truss Builder: Dr Leyva, You should be seen in 3-4 weeks for follow up. Please call for appointment * Attachments The following attachments cannot be sent through Care Everywhere. * PERCUTANEOUS CORONARY INTERVENTION: WHAT TO EXPECT AT HOME (UZBEK) * CHEST PAIN (ANGINA): AFTER YOUR VISIT (UZBEK) documented in this encounter Medications at Time [...] 0.9% infusion 200 mL/hr Intravenous Continuous LENORE Hfofman ??? DISCONTD: lidocaine (XYLOCAINE) 10 mg/mL (1 [...] in sodium chloride 0.9% 50 mL infusion (SUPERVISOR FELLING BUCKING) Intravenous Continuous PRN Kathie Cotter MD Last Dose: 194.3 mg/hr at 06/03/12 1509 ??? DISCONTD: adenosine 90 mg in sodium chloride 0.9% 90 mL infusion (SUPERVISOR FELLING BUCKING) Intravenous Continuous PRN Kathie Cotter MD Last [...] Family History: Father-, pre-mature CAD (age 46), NE, CABG Uncle +CAD Mother, DM, HTN. HLP [...] 06/04/2012 10:04 PM EDTAssociated Order(s): SCAN DOC: OFFICE SUPPORT SPECIALIST * Provider, Scanning - 06/03/2012 4:39 [...] to the outpatient cardiac rehabilitation program at [facility] was discussed. A referral will be [...] ??? CAD (coronary artery disease), non-obstructive - [facility] 2009 post abnormal nuc stress [...] appointments: During 8am-5pm Thursday through Thursday call [phone] to speak with a nurse in the cardiology clinic All other times call [phone] and ask to speak to the chemical laboratory assistant furnace combustion tester. Return to work: One week Driving: No driving for 48 hours after catheterization. Follow up Appointments: PCP: SARITA LIM MD , Call for appointment in 1-2 weeks. Truss Builder: Dr Leyva, You should be seen in 3-4 weeks for follow up. Please call for appointment General Instructions None Future Appointments and Orders Future Appointments: Provider: Department: Dept Phone: Center: 06/04/2012 4:45 PM Echo Inpatient Add-On [facility] Non-Inv Card Lab [phone] None Provider Contact Information: Dr. Kathie Stephen Section of Cardiology [facility] [phone] Discharge References/Attachments: Discharge References/Attachments None Signed: Bryan Stephen MD DATE: 06/04/2012 * Miscellaneous - Provider, Scanning - 06/03/2012 11:02 AM EDT documented in this encounter Plan of Treatment Not on file documented as of this encounter Procedures Procedure Name Priority Date/Time Associated Diagnosis Comments CARDIAC CATHETERIZATION Routine 06/07/20 12 2:15 PM EDT OFFICE SUPPORT SPECIALIST SCAN 06/04/2012 10:04 PM EDT ECHOCARDIOGRAM [...] CAD (coronary artery disease), non-obstructive CARDIAC ENZYMES ([facility]) STAT 06/03/2012 4:00 PM EDT CARDIAC CATHETERIZATION 06/03/20 12 2:02 PM EDT CP POCT GLUCOSE Routine 06/03/2012 11:11 AM EDT documented in this encounter Results * Cardiac Catheterization (06/07/2012 2:15 PM EDT) Anatomical Region Laterality Modality Other Narrative 06/03/2012 4:39 PM EDT Procedure Note Provider, Scanning - 06/03/2012 4:39 PM EDT Kathie Cotter MD CARDIAC CATH ORDERAB LES * SCAN DOC: OFFICE SUPPORT SPECIALIST (06/04/2012 10:04 PM EDT) Anatomical Region Laterality Modality Other Narrative 06/06/2012 2:36 AM EDT Procedure Note Provider, Scanning - 06/04/2012 10:04 PM EDT Scanning Provider MEDIA MGR SCAN EXT O RDR/RSLT * Echo Transthoracic (Complete) (06/04/2012 8:57 AM EDT) [facility] EF 60 HEARTLetsgofordinner SYSTEM Anatomical Region Laterality Modality Other 06/04/2012 Narrative 06/04/2012 9:13 AM EDT Procedure: ? Transthoracic Echocardiogram Patient: ? LAQUITA Pop ?(Age): 1965(46) Med Rec#: ?[id number] ? Sex: ?M ? Site Loc: ?[facility] ? Ht / Wt: ??176(cm)/122(kg) Pt. Loc: ? Adult Floor ?BSA: ?2.44 Study Date: ?06/04/2012 ? Pt. Type: Inpatient Tape: ? Referring: Kathie Cotter Launderer Hand: Khoi Gaines [facility] Launderer Hand 2: Mason Duron ([id number]) Diagnosis: ??Chest pain (786.50) CPT Code(s): ??Echo Full (33121), ??Spectral Doppler (39489), ??Color Doppler (99089), ??Definity ([id number]), Indication(s): ??Chest Pain Rhythm: HR ?BP 78 [...] ? Mid-Inferior ?Normal ? Mid-Inferoseptal ?Normal ? [place]-Septal ? Normal ? [place]-Anterior ? Normal ? [place]-Lateral ?Normal ? [place]-Inferior ? Normal ? [place]-Tip ?Normal ? Chambers ?Value ?Units (Range) ? [...] Patient: LAQUITA Pop (Age): 1965(46) Med Rec#: [id number] Sex: M Site Loc: [facility] Ht / Wt: 176(cm)/122(kg) Pt. Loc: Adult Floor BSA: 2.44 Study Date: 06/04/2012 Pt. Type: Inpatient Tape: Referring: Kathie Cotter Launderer Hand: Khoi Gaines [facility] Launderer Hand 2: Mason Duron ([id number]) Diagnosis: Chest pain (786.50) CPT Code(s): Echo Full (26773), Spectral Doppler (83033), Color Doppler (54298), Definity (17672PJ), Indication(s): Chest Pain Rhythm: HR BP 78 [...] Normal Mid-Posterolateral Normal Mid-Inferior Normal Mid-Inferoseptal Normal [place]-Septal Normal [place]-Anterior Normal [place]-Lateral Normal [place]-Inferior Normal [place]-Tip Normal Chambers Value Units (Range) LV EF [...] Glucose, POC 183 60 - 199 mg/dL [facility] Comment: Supplemental ranges: <110 mg/dL before meals <200 mg/dL all other times of the day Blood specimen (specimen) 06/04/2012 7:06 AM EDT 06/04/2012 7:06 AM EDT Kathie Cotter MD POINT OF CARE TEST O RDERABLES Performing Organization Address City/[facility]/ZIP Co de Phone Number [facility] * EKG 12-LEAD (06/04/2012 6:07 AM EDT) Ventricular rate 77 BPM MUSE SYSTEM Atrial Rate 77 BPM MUSE SYSTEM P-R Interval 150 ms MUSE SYSTEM QRS Duration 92 ms MUSE SYSTEM Q-T Interval 372 ms MUSE SYSTEM QTC Calculated (Bezet) 420 ms MUSE SYSTEM Calculated P [place] 30 degrees MUSE SYSTEM Calculated R [place] 37 degrees MUSE SYSTEM Calculated T [place] 30 degrees MUSE SYSTEM INTERPRETATION Normal sinus rhythm Normal ECG When compared with ECG of 03-JUN-2012 16:38, No significant change was found Confirmed by MD Mirtha, Cali ([id number]) on 06/04/2012 1:38:26 PM MUSE SYSTEM 06/04/2012 6:07 AM EDT 06/04/2012 1:38 PM EDT Unknown ECG ORDERABLES Performing Organization Address City/[facility]/ZIP Co de Phone Number MUSE SYSTEM * (ABNORMAL) BMP w/fasting Glucose (06/04/2012 6:05 AM EDT) [facility] Glucose Fasting 185(H) 65 - 99 [...] intervals supplied above were not validated at [facility]. Results from pediatric patients should be interpreted [...] Lab Kathie Cotter MD CHEMISTRY ORDERABLES [facility] * (ABNORMAL) LDL CHOLESTEROL, DIRECT (06/04/2012 4:45 AM EDT) LDL Cholesterol, Direct 108(H) <=99 mg/dL [facility] Comment: The National Cholesterol Education Program (NCEP) has set the following guidelines for LDL Cholesterol: Reference range: ?? Optimal: ?<100 mg/dL ?? Near Optimal/Above Optimal: ?? 100-129 mg/dL ?? Borderline high: ?130-159 mg/dL ?? High: ? 160-189 mg/dL ?? Very high: ?>bg=668 mg/dL RACHEL 2001: 285(19):8863-0451 Blood specimen (specimen) 06/04/2012 4:45 AM EDT [...] Gran Absolute 0.02 0.00 - 0.05 x10(3)/mcL [facility] Blood specimen (specimen) 06/04/2012 4:45 AM EDT 06/04/2012 4:55 AM EDT Kathie Cotter MD HEMATOLOGY ORDERABLE S Performing Organization Address [facility] de Phone Number [facility] * Alkaline Phosphatase (06/04/2012 4:45 AM EDT) Alkaline Phosphatase 53 40 - 120 unit/L [facility] Blood specimen (specimen) 06/04/2012 4:45 AM EDT 06/04/2012 4:55 AM EDT Narrative Resulting Agency Comment Spec In Lab Kathie Cotter MD CHEMISTRY ORDERABLES Performing Organization Address [facility] de Phone Number [facility] * Alanine Aminotransferase (06/04/2012 4:45 AM EDT) Alanine Aminotransferase 31 0 - 55 unit/L [facility] Blood specimen (specimen) 06/04/2012 4:45 AM EDT 06/04/2012 4:55 AM EDT Narrative Resulting Agency Comment Spec In Lab Kathie Cotter MD CHEMISTRY ORDERABLES Performing Organization Address [facility] Co de Phone Number [facility] * Aspartate Aminotransferase (06/04/2012 4:45 AM EDT) Aspartate Aminotransferase 31 0 - 39 unit/L [facility] Blood specimen (specimen) 06/04/2012 4:45 AM EDT 06/04/2012 4:55 AM EDT Narrative Resulting Agency Comment Spec In Lab Kathie Cotter MD CHEMISTRY ORDERABLES Performing Organization Address [facility] de Phone Number [facility] * (ABNORMAL) Hemoglobin A1c (06/04/2012 4:45 AM EDT) [facility] Hemoglobin A1c 6.5(H) 4.3 - 6.1 % [facility] Estimated Average Glucose 140 mg/dL [facility] Comment: eAG equivalents for HbA1c percentages: HbA1c(%) [...] into estimated average glucose values. ??Diabetes Care 2008:31(8):0587-1039. Blood specimen (specimen) 06/04/2012 4:45 AM EDT 06/04/2012 4:55 AM EDT Narrative Resulting Agency Comment Spec In Lab Kathie Cotter MD CHEMISTRY ORDERABLES Performing Organization Address [facility] Co de Phone Number [facility] * (ABNORMAL) Lipid panel (fasting) (06/04/2012 4:45 AM EDT) [facility] Cholesterol, Total 186 <=199 mg/dL [facility] Comment: Recommendations of the NCEP Adult Treatment Panel for the following risk cutoff thresholds for the [place] population: Desirable: <200 mg/dL Borderline High: 200-239 mg/dL High: > or = 240 mg/dL Triglyceride 412(H) <=149 mg/dL [facility] Comment: Reference Range: Normal triglycerides: ??<150 mg/dL Borderline high: ??150-199 mg/dL High: ??200-499 mg/dL Very high: ??>hm=003 mg/dL RACHEL 2001; 285(19):4381-2779 HDL Cholesterol 25(L) >=40 mg/dL [facility] Comment: Reference range: ??Low HDL: ?? < 40 mg/dL ??Normal: ?40-60 mg/dL ??Desirable: > 60 mg/dL RACHEL 2001; 285(19):9013-8617 LDL Cholesterol Not Calculated <=99 mg/dL [facility] Comment: Since a calculated LDL value is not valid for triglycerides greater than 400 mg/dl, a direct LDL determination is performed instead. Reference range: ?? Optimal: ?<100 mg/dL ?? Near Optimal/Above Optimal: ?? 100-129 mg/dL ?? Borderline high: ?130-159 mg/dL ?? High: ? 160-189 mg/dL ?? Very high: ?>dk=849 mg/dL RACHEL 2001: 285(19):4027-4897 Cholesterol/HDL Ratio 7.4 ratio [facility] Comment: A Cholesterol to HDL ratio below 4:1 is desirable. ??Studies suggest that increased CAD risk occurs at ratios above 5 for females and above 6 for men. ? [place] Heart Association ??(http://www.americanheart.org) ? Pallavi Int Med, 1994; 121:641 ? AM J Med, 1998; 105(1A):48S Blood specimen (specimen) 06/04/2012 4:45 AM EDT 06/04/2012 4:55 AM EDT Narrative Resulting Agency Comment Spec In Lab Kathie Cotter MD CHEMISTRY ORDERABLES Performing Organization Address [facility] de Phone Number [facility]ANG N[facility] * (ABNORMAL) Cardiac Enzymes (06/04/2012 4:45 AM EDT) Troponin-T 0.07(H) <=0.03 ng/mL [facility] Comment: 0.03 ng/mL: Represents the 99th percentile upper reference limit for normals. >0.03 ng/mL: Elevated cardiac troponin T level indicative of myocardial damage. Diagnosis of acute, evolving or recent NE requires a typical rise and gradual fall [...] consensus document of the Joint Society of Cardiology/[place] College of Cardiology Committee for the redefinition of myocardial infarction. Journal of the [place] College of Cardiology 2000; 36: 959-969] Creatine Kinase 150 0 - 200 unit/L [facility] Comment:result rechecked-[facility] Blood specimen (specimen) 06/04/2012 4:45 AM EDT 06/04/2012 4:55 AM EDT Narrative Resulting Agency Comment Spec In Lab Kathie Cotter MD CHEMISTRY ORDERABLES Performing Organization Address [facility] Co de Phone Number [facility] N[facility] * CBC (with Diff) (06/04/2012 4:45 AM EDT) White Blood Cell 6.4 4.0 - 10.0 x10(3)/mcL [facility] Red Blood Cell 4.78 4.63 - 6.08 x10(6)/mcL [facility] MILLENNIUM Hemoglobin 14.6 13.7 - 17.5 gm/dL [facility] Hematocrit 42.7 40.0 - 51.0 % [facility] M[facility]NI[facility] Mean Cell Volume 89.3 79.0 - 92.0 fL [facility] Mean Cell Hemoglobin 30.5 25.6 - 32.2 pg [facility] Mean Cell Hemoglobin Concentration 34.2 32.0 - 36.5 gm/dL [facility] Platelet 154 145 - 370 x10(3)/mcL [facility] RDW Standard Deviation 41.0 35.0 - 46.0 fL [facility] MILLENNIUM RDW coefficient of variation 12.7 10.9 - 14.4 % [facility] Mean Platelet Volume 10.1 9.0 - 12.0 fL [facility] Blood specimen (specimen) 06/04/2012 4:45 AM EDT 06/04/2012 4:55 AM EDT Narrative Resulting Agency Comment Spec In Lab Kathie Cotter MD HEMATOLOGY ORDERABLE S Performing Organization Address [facility]/ZIP Co de Phone Number [facility] * POCT GLUCOSE (06/03/2012 9:31 PM EDT) Glucose, POC 163 60 - 199 mg/dL [facility] Comment: Supplemental ranges: <110 mg/dL before meals <200 mg/dL all other times of the day Blood specimen (specimen) 06/03/2012 9:31 PM EDT 06/03/2012 9:31 PM EDT Kathie Cotter MD POINT OF CARE TEST O RDERABLES Performing Organization Address City/[facility]/ZIP Co de Phone Number [facility] * POCT GLUCOSE (06/03/2012 6:10 PM EDT) Glucose, POC 97 60 - 199 mg/dL [facility] Comment: Supplemental ranges: <110 mg/dL before meals <200 mg/dL all other times of the day Blood specimen (specimen) 06/03/2012 6:10 PM EDT 06/03/2012 6:10 PM EDT Kathie Cotter MD POINT OF CARE TEST O RDERABLES Performing Organization Address [facility] de Phone Number [facility] * EKG 12 Lead (06/03/2012 4:38 PM EDT) Pathologist [facility] Ventricular rate 74 BPM MUSE SYSTEM Atrial Rate 74 BPM MUSE SYSTEM P-R Interval 150 ms MUSE SYSTEM QRS Duration 92 ms MUSE SYSTEM Q-T Interval 372 ms MUSE SYSTEM QTC Calculated (Bezet) 412 ms MUSE SYSTEM Calculated P [place] 46 degrees MUSE SYSTEM Calculated R [place] 25 degrees MUSE SYSTEM Calculated T [place] 29 degrees MUSE SYSTEM INTERPRETATION Normal sinus rhythm Normal ECG When compared with ECG of 18-JAN-2010 07:42, No significant change was found Confirmed by MD Mirtha, Cali ([id number]) on 06/04/2012 7:52:23 AM MUSE SYSTEM 06/03/2012 4:38 PM EDT 06/04/2012 7:52 AM EDT Kathie Cotter MD ECG ORDERABLES Performing Organization Address [facility] de Phone Number MUSE SYSTEM * Cardiac Enzymes (06/03/2012 4:00 PM EDT) [facility] Troponin-T <0.03 <=0.03 ng/mL [facility] Comment: 0.03 ng/mL: Represents the 99th percentile upper reference limit for normals. >0.03 ng/mL: Elevated cardiac troponin T level indicative of myocardial damage. Diagnosis of acute, evolving or recent NE requires a typical rise and gradual fall [...] consensus document of the Joint Society of Cardiology/[place] College of Cardiology Committee for the redefinition of myocardial infarction. Journal of the [place] College of Cardiology 2000; 36: 959-969] Creatine Kinase 41 0 - 200 unit/L [facility] MIKEYCHANEL Blood specimen (specimen) 06/03/2012 4:00 PM EDT 06/03/2012 4:12 PM EDT Narrative Resulting Agency Comment Spec In Lab Kathie Cotter MD CHEMISTRY ORDERABLES Performing Organization Address City/[facility]/ZIP Co de Phone Number [facility] * POCT GLUCOSE (06/03/2012 11:11 AM EDT) [facility] Glucose, POC 147 60 - 199 mg/dL [facility] Comment: Supplemental ranges: <110 mg/dL before meals <200 mg/dL all other times of the day Blood specimen (specimen) 06/03/2012 11:11 AM EDT 06/03/2012 11:11 AM EDT Kathie Cotter MD POINT OF CARE TEST O RDERABLES Performing Organization Address [facility] Co de Phone Number [facility] NORTON documented in this encounter Visit Diagnoses Not on filedocumented in this encounter Administered Medications Inactive Administered Medications - up to 3 most recent administrations Medication Order MAR Action Action Date Dose Rate Site adenosine 90 mg in sodium chloride 0.9% 90 mL infusion (SUPERVISOR FELLING BUCKING) Intravenous, CONTINUOUS PRN, Starting on Martha 06/03/12 at 1511, Until Martha 06/03/12 at 1734, Cath (Intra-Procedure), Routine New Bag 06/03/2012 3:11 PM EDT 140 mcg/kg/min 933.2 mL/hr aspirin EC tablet 81 mg 81 mg, Oral, DAILY, First dose on Thu06/04/12 at 0900, Until Discontinued, Routine Given 06/04/2012 8:38 AM EDT 81 mg bivalirudin (ANGIOMAX) 250 mg in sodium chloride 0.9% 50 mL infusion (SUPERVISOR FELLING BUCKING) Intravenous, CONTINUOUS PRN, Starting on Martha 06/03/12 [...] in sodium chloride 0.9% 90 mL infusion (SUPERVISOR FELLING BUCKING) (CANCELED) Intravenous, CONTINUOUS PRN, Starting on Martha 06/03/12 at 1511, Until Martha 06/03/12 at 1734, Cath (Intra-Procedure), Routine 1511 (New Bag - Provider: Dustin Carlton Jr.)1521 (Stopped - Provider: Tawanda Agarwal, VERO) bivalirudin (ANGIOMAX) 250 mg in sodium chloride 0.9% 50 mL infusion (SUPERVISOR FELLING BUCKING) (CANCELED) Intravenous, CONTINUOUS PRN, Starting on Martha [...] MD) documented in this encounter Care Teams Cake Stripper Relationship Specialty Start Date End Date Sarita Lim MD [address] [place] [address] PCP - General 07/16/10 documented as of this encounter
--- OUTSIDE RECORDS SUMMARY | 2024-08-22 18:49 | XMS_ITS | Referral Summary ---
Author Organization [facility] Address [address] [place] [address] Care Team Providers Care Pharmacy Retail Support Specialist Name Role Phone Coni Lim MD Primary Care Provider [phone] Allergies Active Allergy Reactions Criticality Noted Date [...] Encephalopathy 04/08/2023 Acute respiratory failure with hypoxia ([facility]) 04/08/2023 Idiopathic hypotension 04/08/2023 CVA (cerebral vascular accident) ([facility]) 03/15 Anxiety and depression 02/22/2014 Unstable angina ([facility]) 02/15/2014 CAD (coronary artery disease) [...] Advance Directives For more information, please contact: [phone] * Full Code (Latest Code Status on [...] Comments 02/14/2014 22:30 02/16/2014 17:34 Care Teams Pharmacy Retail Support Specialist Relationship Specialty Start Date End Date Coni Lim MD [address] [place] [id number] PCP - General 12/17/11
--- OUTSIDE RECORDS SUMMARY | 2024-08-22 18:49 | XMS_ITS | Encounter Summary ---
Author Organization [facility] Address [address] [place] [address] Care Team Providers Care Fermentologist Name Role Phone Coni Lim MD Primary Care Provider [phone] Encounter Details Date Type Department Care Team (Late st Contact Info) Description 01/28/2016 Results Only [facility] [phone] Romi Montanez MD [address] [place] [id number] Social History Tobacco Use Types Packs/Day [...] ? ROMEO COE ? Accession #: ? [id number] ? : ? 1965 (Age: 50) ??M [...] Morgan 01/30/2016 9:50 AM End of Report [facility] 01/28/2016 8:56 EDT 01/30/2016 8:56 EDT us Romi Montanez MD PATHOLOGY ORDERABLES Final Result [facility] [address] [place] [address] documented in this encounter Visit Diagnoses Not on filedocumented in this encounter Care Teams Fermentologist Relationship Specialty Start Date End Date Coni Lim MD [address] [place] [id number] PCP - General 12/17/11 documented as of this encounter
--- OUTSIDE RECORDS SUMMARY | 2024-08-22 18:49 | XMS_ITS | Encounter Summary ---
Author Organization [facility] Address [facility] [place] [address] Care Team Providers Care Fixture Repairer Fabricator Name Role Phone Coni Lim MD Primary Care Provider [phone] Encounter Details Date Type Department Care Team (Late st Contact Info) Description 05/31/2012 Orders Only Cardiology at [address] [phone] Remedios Burleson, [place] [facility] [place] [address] CAD (coronary artery disease), non-obstructive (Primary Dx) [...] Coronary atherosclerosis of unspecified type of vessel, capitan grande band or graft documented in this encounter Care Teams Fixture Repairer Fabricator Relationship Specialty Start Date End Date Coni Lim MD [address] [place] [address] PCP - General 07/16/10 documented as of this encounter
--- OUTSIDE RECORDS SUMMARY | 2024-08-22 18:49 | XMS_ITS | Encounter Summary ---
Author Organization [facility] Address [address] [place] [address] Care Team Providers Care Combination Machine Tender Name Role Phone Coni Lim MD Primary Care Provider [phone] Encounter Details Date Type Department Care Team (Late st Contact Info) Description 01/14/2022 Lab Requisition [facility] Pathology & Laboratory Medicine - [facility] [address] [place] [address] Kevin Landaverde MD [address] [place] [id number] Encounter for other general examination Social History [...] Name Priority Date/Time Associated Diagnosis Comments NON INVESTIGATOR VICE/FNA CYTOLOGY Today 01/13/2022 8:35 EDT Encounter for other general examination documented in this encounter Results * NON INVESTIGATOR VICE/FNA CYTOLOGY (01/13/2022 8:35 EDT) Note to Patient The following pathology results have been interpreted by your pathologist and may be available to you before your health provider has had the opportunity to review them. Please allow time for your provider to receive these results and explore management options, if applicable. 01/15/2022 12:10 [facility] Final Diagnosis THYROID, RIGHT LOBE, NODULE, ULTRASOUND-GUIDE D FINE NEEDLE ASPIRATION: - Non-diagnostic aspirate. See comment. 01/15/2022 12:10 [facility] Diagnosis Comment Smears are pauci-cellular [...] testing as clinically indicated. 01/15/2022 12:10 [facility] Attestation There was significant resident/fellow involvement in the diagnostic evaluation of this case. By the signature below, the attending physician certifies that they have personally conducted a gross and/or microscopic examination of the described specimens and rendered or confirmed the above diagnosis. 01/15/2022 12:10 T [facility] at 1210 Rapid Diagnosis [...] by Dr. Melgar assisting Dr. Landaverde at [facility] on 01/13/22. 01/15/2022 12:10 EDT [facility] Clinical History Right thyroid nodule 01/15/2022 12:10 T [facility] Gross Description A. 8 fixed prepared slides, 1 air dried prepared slide, and 1 tube of CytoLyt were received and processed by selective cellular enhancement technique. 01/15/2022 12:10 [facility] Resident/Brent w: Daniel Christensen DO 01/15/2022 12:10 [facility] Performing Lab [facility] 01/15/2022 12:10 T [facility] Scanned Images 01/15/2022 12:10 [facility] Fine Needle Aspirate ENTIRE RIGHT LOBE OF THYROID GLAND / Unknown 01/13/2022 8:35 EDT 01/14/2022 6:34 EDT us Kevinchristi Landaverde MD PATHOLOGY ORDERABLES Final Resul t [facility] [address] [place] [address] documented in this encounter Visit Diagnoses Diagnosis Encounter for other general examination documented in this encounter Care Teams Combination Machine Tender Relationship Specialty Start Date End Date Coni Lim MD [address] [place] [id number] PCP - General 12/17/11 documented as of this encounter
--- OUTSIDE RECORDS SUMMARY | 2024-08-22 18:49 | XMS_ITS | Encounter Summary ---
Author Organization [facility] Address [address] [place] [address] Care Team Providers Care Paint Process Engineer Name Role Phone Coni Lim MD Primary Care Provider [phone] Reason for Visit * (Routine/Next Available) - Receiving Office to Obtain Authorization Specialty Diagnoses / Procedures Referred By Contsigifredo t Referred To Contact Procedures XR OUTSIDE IMAGES CHEST Emmy Nichols MD Phone: tel: Referral ID Status Reason Start Date Expiration Date Visits Requested Visits Authorized [id number] Receiving Office to Obtain Authorization 04/07/2023 1 1 Encounter Details Date Type Department Care Team (Latest Contact Info) Description 04/07/2023 20:10 EDT Hospital Encounter [facility] Secondary Reads [place] Discharge Disposition: Home [...] 20:17 EDT This is a non-reportable exam. Emmy Nichols MD IMG OTHER IMAGING ORDERABLES Final Result documented in this encounter Visit Diagnoses Not on filedocumented in this encounter Care Teams Paint Process Engineer Relationship Specialty Start Date End Date Coni Lim MD [address] [place] [address] PCP - General 12/17/11 documented as of this encounter
--- OUTSIDE RECORDS SUMMARY | 2024-08-22 18:49 | XMS_ITS | Encounter Summary ---
Author Organization [facility] Address [address] [place] [address] Care Team Providers Care Welfare Project Manager Name Role Phone Coni Lim MD Primary Care Provider [phone] Reason for Visit * Auth/Cert (Routine) Specialty Diagnoses / Procedures Referred By Contsigifredo t Referred To Contact Diagnoses Encephalopathy Seizures Referral ID Status Reason Start Date Expiration Date Visits Re quested Visits Authorized [id number] 1 1 Encounter Details Date Type Department Care Team (Late st Contact Info) Description 04/07/2023 23:45 EDT - 04/09/2023 13:45 EDT Hospital Encounter [place] [address] General Medicine Telemetry Unit [address] [place], [place] [id number] Gillian Randolph MD 111 [facility], Level [address] [place] [phone] Park Coe MD MPH [address] [phone] Acute respiratory failure with hypoxia (HCC-CMS); Cerebrovascular [...] of Assessment Author No 04/08/2023 5:00 CASEYT Oxaan Welsh RN * Do you have difficulty [...] 04/08/2023 ??? Acute respiratory failure with hypoxia ([facility]) ([facility]) 04/08/2023 ??? Idiopathic hypotension 04/08/2023 ??? Anxiety and depression 02/22/2014 ??? Unstable angina ([facility]) ([facility]) 02/15/2014 ??? CAD (coronary artery disease) 02/15/2014 ??? CVA (cerebral vascular accident) ([facility]) 03/15/2015 Resolved Hospital Problems No resolved problems to display. Transition of care: [facility] Transition of Care report automatically routed to PCP office on discharge.Additional handoff communication performed via: Fax Clinical Issues Needing Follow-up 1. Pertinent medication changes: - Continue CASTING COORDINATOR medications without changes 2. Recommended follow-up tests/procedures needed: - Routine follow-up with PCP 3. Anticoagulation on discharge: No Recent Labs 04/08/23 0122 INR 1.1 4. Changes to goals of care at time of discharge (if applicable): N/A Hospital Course: Romeo Coelho is a 57 y/o man with a history of CAD s/p PCI and prior CVA, who was admitted to the MICU from [facility] after being found down and unresponsive. His found him down outside after he went out to mow the lawn. At [facility] he was found to have a GCS of 3 and was intubated for airway protection. He underwent CT head and CT angio head/neck out of concern for midbrain or pontine stroke, both of which were unrevealing. He was transferred to the [facility] MICU for further management of his depressed [...] today: 35 Minutes Park Coe MD MPH [facility] Inpatient Service 04/09/2023 14:33 documented in this [...] Means Destination Comment s Home or Self Usp documented in this encounter Progress Notes * [...] accessing necessary care and/or follow-up after discharge. nursing associate/Commercial Trailer Truck Driver will continue to follow patient's progress and [...] (PCI), hx CVA, DM2, HLD. Presented to [facility] after being found down by . Was seen ~30min prior while mowing the lawn. In ED pt intubated for airway protection. Transfer to [facility] MICU. Was able to quickly extubated and [...] 04/08/23 * Leigha Welsh RN - 04/08/2023 0519 EDT FOUR EYES SKIN ASSESSMENT Four Eyes [...] LDA for any identified wounds ??? Add [place] image for any suspected PI or non surgical wounds ??? Order wound consult if suspected PI identified ? ? If Anibal is < or = to 16, initiate Pressure Injury Prevention Bundle ([id number]). 04/08/2023 5:48 * Martha Randall RT - 04/07/2023 2350 EDT Respiratory Progress Note Indications for Respiratory therapy: Mechanical Ventilation Data Vitals: Heart Rate: 78 BPM, Resp: 16, SpO2: 97 % FIO2/O2 Device: , , O2 Device: Intubated, FIO2 %: 30 % RT Orders: Continuous RT Orders (From admission, onward) Start Ordered 04/08/23 0500 Mechanical Ventilation-Invasive [[id number]] RT Continuous Discontinue References: ARDS/ALI Protocol Post Op Protocol Weaning Protocol ETCO2 Protocol Question Answer Comment Mode: Assist Control Control Type: Volume Control VT (mL) 510 Set Rate (f/min) 16 Peep (cm H2O) 5 Autoflow: Yes Protocols: Weaning ETCO2 Protocol: Yes 04/08/23 0023 Active Orders Action/Events Respiratory events; Pt transferred from [facility], received report from Transport Team. [...] 1 Patient was admitted from: Outside Hospital: [facility]. [facility] Assessment The patient is a [...] prior symptoms May follow with neurologist in [facility]? #History of CVA - as [...] CVA [facility] being [facility] down and unresponsive. His found him down outside after he went out to mow the lawn. At [facility] he was found to have a GCS of 3 and was intubated for airway protection. He underwent CT head and CT angio head/neck out of concern for midbrain or pontine stroke, both of which were unrevealing. He was transferred to the [facility] MICU for further management of his depressed mental status. Collateral obtained from patient's : Patient was in normal state of health. Went out to [employer] and then mow the lawn. Was seen [...] No known supplements. Only recent travel to [facility]. No known possible toxic ingestions. No recent [...] sinus rhythm, rate 81, normal axis, normal MD interval, normal QTc Brandon Denny, MS4 Signed, [...] Problem: Encephalopathy Active Problems: Unstable angina (HCC-CMS) ([facility]) CAD (coronary artery disease) Anxiety and depression Acute respiratory failure with hypoxia (HCC-CMS) ([facility]) Idiopathic hypotension CVA (cerebral vascular accident) ([facility]) Critical Care time was provided in the [...] Care - Aiyana Almonte RN - 04/09/2023 0944 EDT Data: VSS on RA. AOX3. No [...] LDA for any identified wounds ??? Add [place] image for any suspected PI or non surgical wounds ??? Order wound consult if suspected PI identified ? ? If Anibal is < or = to 16, initiate Pressure Injury Prevention Bundle ([id number]). 04/08/2023 19:39 * Plan of Care - Katarzyna Young RN - 04/08/2023 1841 EDT Data: assumed care of pt @ [...] room air. Denies pain. Transportedvia wheelchair to [place] [phone] by RN. Report endorsed to Steffanie PHAM [...] Keenan Laws MD - 04/08/2023 1821 EDT [facility] Medicine Transfer Summary Service Date: 04/08/2023 Admit Date: 04/08/23 Primary Care Provider: Coni Lim Chief Complaint: Syncope HPI Romeo Coelho is a 57 y.o. male with a PMHx of CAD s/p prior PCI and prior CVA, DM2, HLD who presented as a transfer from [facility] on 04/07/2023 intubated and sedated for airway protection after being brought to [facility] via EMS for syncope. Per records, the patient's story is consistent with feeling tired and dehydrated prior to the event, his first of this kind. Eval prior to arrival at the [facility] MICU included head and neck imaging which [...] Depression ??? DMII (diabetes mellitus, type 2) ([facility]) ??? Fibromyalgia ??? Gout ??? HLD [...] above interpretation and agree with the findings. [id number] Assessment Romeo Coelho is a 57 y.o. [...] daily in AM Metop 50 tartrate BID (CASTING COORDINATOR 200mg Succ) Mood Fibromyalgia Bupropion 150mg BID Cymbalta 60mg BID Gabapentin 800mg BID Topiramate 25mg GERD CASTING COORDINATOR PPI Restless Leg Pramipexole CASTING COORDINATOR DM SSI VTE Prophylaxis Ambulate Code: Full [...] DM2, HTN, neuropathy and gout, transferred to [facility] MICU from [facility] on 04/07/23 after a syncopal event that occurred after he had mowed his lawn.Per records from [facility], he was found down by his and brought to [facility] via EMS. He was started onPropofol [...] or cardiac symptoms. Evaluation for stroke and [place] (inc troponins and TTE) was unrevealing. Of note his U tox is positive for Benzos, Fentanyl and Cannabis. He acknowledges regular marijuana use (it is prescribed to me) and reports having a niece who struggles with an opiate use disorder,but denies using drugs other than marijuana. Available records from [facility] do not reveal evidence that these drugs were administered there (or here). I shared this information with him but he again reports using marijuana only. Will monitor on tele overnight and likely DC home tomorrow. ?? Keenan Laws MD * Plan of Care - Rick Cuellar MD - 04/08/2023 0436 EDT Plan of Care Note Patient admitted overnight to MICU, intubated from [facility]. Patient briefly on pressors and propofol which [...] Patient will likely be transferred to the [facility] medicine as he no longer requires ICU [...] EDT) 04/14/2023 7:42 EDT us Scan 2 Station Air Traffic Control Specialist PROCEDURE/MINOR SURGICAL OR DERABLES Final Result * ECG REPORT - SCANNED (04/13/2023 13:22 EDT) 04/13/2023 13:2 2 EDT us Scan 2 Station Air Traffic Control Specialist PROCEDURE/MINOR SURGICAL OR DERABLES Final Result * BETA HYDROXYBUTYRATE (04/09/2023 12:15 EDT) Beta Hydroxybutyrate <0.1 <0.4 mmol/L 04/09/2023 12:48 EDT [facility] Blood VENOUS BLOOD / Unknown Venipuncture / Unknown 04/09/2023 12:15 EDT 04/09/2023 12:24 EDT us Keeley Quiroz PA-C CHEMISTRY & BLOOD GAS ORD ERABLES Final Result [facility] [address] [place] [address] * (ABNORMAL) BASIC METABOLIC PANEL (BMP) (04/09/2023 12:15 EDT) Sodium 140 136 - 145 mmol/L 04/09/2023 12:42 EDT [facility] Potassium 3.7 3.5 - 5.0 mmol/L 04/09/2023 12:42 T [facility] Chloride 110 96 - 110 mmol/L 04/09/2023 12:42 EDT [facility] CO2 Total 19(L) 22 - 32 mmol/L 04/09/2023 12:42 [facility] Anion Gap 11 5 - 14 mmol/L 04/09/2023 12:42 [facility] Glucose 122(H) 70 - 99 mg/dl 04/09/2023 12:42 T [facility] Calcium 8.8 8.5 - 10.5 mg/dL 04/09/2023 12:42 EDT [facility] BUN 11 10 - 26 mg/dL 04/09/2023 12:42 EDT [facility] Creatinine 0.68 0.66 - 1.25 mg/dL 04/09/2023 12:42 EDT [facility] eGFR 110 >60 mL/min/1.73 m2 04/09/2023 12:42 EDT [facility] Blood VENOUS BLOOD / Unknown Venipuncture / Unknown 04/09/2023 12:15 EDT 04/09/2023 12:24 EDT Keeley CARPENTERC CHEMISTRY & BLOOD GAS ORD ERABLES Final Result Performing Organization Address City/[facility]/ZIP Co de Phone Number [facility] [address] [place] [address] * LACTIC ACID (04/09/2023 12:14 EDT) Lactic Acid 0.9 <=2.0 mmol/L 04/09/2023 12:53 EDT [facility] Blood VENOUS BLOOD / Unknown Venipuncture / Unknown 04/09/2023 12:14 EDT 04/09/2023 12:25 EDT us Keeley Quiroz PA-C CHEMISTRY & BLOOD GAS ORD ERABLES Final Result Performing Organization Address City/[facility]/ZIP Co de Phone Number [facility] [address] [place] [address] * (ABNORMAL) BASIC METABOLIC PANEL (BMP) (04/09/2023 9:30 EDT) Sodium 140 136 - 145 mmol/L 04/09/2023 11:13 EDT [facility] Potassium 3.7 3.5 - 5.0 mmol/L 04/09/2023 11:13 EDT [facility] Comment:Slight hemolysis christo ntified, interpret with caution as hemolysis will elevate potassium result. Chloride 110 96 - 110 mmol/L 04/09/2023 11:13 [facility] CO2 Total 15(L) 22 - 32 mmol/L 04/09/2023 11:13 [facility] Anion Gap 15(H) 5 - 14 mmol/L 04/09/2023 11:13 [facility] Glucose 203(H) 70 - 99 mg/dl 04/09/2023 11:13 [facility] Calcium 8.8 8.5 - 10.5 mg/dL 04/09/2023 11:13 [facility] BUN 12 10 - 26 mg/dL 04/09/2023 11:13 [facility] Comment: Slight hemolysis identified, interpret with caution as results may be affected due to hemolysis. Creatinine 0.78 0.66 - 1.25 mg/dL 04/09/2023 11:13 [facility] eGFR 105 >60 mL/min/1.7 3m2 04/09/2023 11:13 [facility] Blood VENOUS BLOOD / Unknown Venipuncture / Unknown 04/09/2023 9:30 EDT 04/09/2023 10:39 EDT us Memo Odonnell MD CHEMISTRY & BLOOD GAS ORDERABLE S Final Result [facility] [address] [place] [address] * (ABNORMAL) COMPLETE BLOOD COUNT (04/09/2023 9:30 EDT) WBC 8.85 4.00 - 10.40 K/cmm 04/09/2023 10:47 [facility] RBC 4.69 4.36 - 5.78 M/cmm 04/09/2023 10:47 [facility] Hemoglobin 13.9 13.8 - 17.3 g/dL 04/09/2023 10:47 [facility] HCT 40.9 39.5 - 50.2 % 04/09/2023 10:47 [facility] MCV 87 81 - 95 fL 04/09/2023 10:47 [facility] MCH 29.6 27.6 - 33.0 pg 04/09/2023 10:47 EDT [facility] MCHC 34.0 32.8 - 36.4 g/dL 04/09/2023 10:47 EDT [facility] RDW-CV 14.1 <14.2 % 04/09/2023 10:47 EDT [facility] RDW-SD 45.1 <46.0 fl 04/09/2023 10:47 EDT [facility] PLT 137(L) 141 - 377 K/cmm 04/09/2023 10:47 EDT [facility] MPV 11.8 9.5 - 12.7 fL 04/09/2023 10:47 EDT [facility] Blood VENOUS BLOOD / Unknown Venipuncture / Unknown 04/09/2023 9:30 EDT 04/09/2023 10:39 EDT us Memo Odonnell MD HEMATOLOGY & PF4 ORDERABLES Fin al Result Performing Organization Address City/[facility]/ZIP Co de Phone Number [facility] [address] [place] [address] * (ABNORMAL) POCT GLUCOSE, INTERFACED (04/09/2023 8:25 EDT) Glucose, POC 154(H) 70 - 100 mg/dL 04/09/2023 8:26 EDT [facility] HN LAB POC COMMENT (GLUCOSE) Test Performed by Nursing Services 04/09/2023 8:26 EDT [facility] Blood CAPILLARY BLOOD / Unknown 04/09/2023 8:25 EDT 04/09/2023 8:26 EDT us Abdi Peoples POINT OF CARE TEST ORDERABLES Fi nal Result Performing Organization Address City/[facility]/ZIP Co de Phone Number [facility] [address] [place] [address] * (ABNORMAL) POCT GLUCOSE, INTERFACED (04/08/2023 20:50 EDT) Glucose, POC 128(H) 70 - 100 mg/dL 04/08/2023 20:51 EDT [facility] HN LAB POC COMMENT (GLUCOSE) Test Performed by Nursing Services 04/08/2023 20:51 EDT [facility] Blood CAPILLARY BLOOD / Unknown 04/08/2023 20:50 EDT 04/08/2023 20:51 EDT us Gillian Randolph MD POINT OF CARE TEST ORDERAB LES Final Result Performing Organization Address City/[facility]/ZIP Co de Phone Number [facility] [address] [place] [address] * (ABNORMAL) POCT GLUCOSE, INTERFACED (04/08/2023 18:11 EDT) Glucose, POC 131(H) 70 - 100 mg/dL 04/08/2023 18:12 EDT [facility] HN LAB POC COMMENT (GLUCOSE) Test Performed by Nursing Services 04/08/2023 18:12 EDT [facility] Blood CAPILLARY BLOOD / Unknown 04/08/2023 18:11 EDT 04/08/2023 18:12 EDT us Rick Cuellar MD POINT OF CARE TEST ORDERABL ES Final Result Performing Organization Address [facility]/ZIP Co de Phone Number [facility] [address] [place] [address] * ECG REPORT - SCANNED (04/08/2023 14:56 EDT) 04/08/2023 14:5 6 EDT us Scan 2 Station Air Traffic Control Specialist PROCEDURE/MINOR SURGICAL OR DERABLES Final Result * (ABNORMAL) POCT GLUCOSE, INTERFACED (04/08/2023 12:37 EDT) Glucose, POC 115(H) 70 - 100 mg/dL 04/08/2023 12:39 EDT [facility] HN LAB POC COMMENT (GLUCOSE) Test Performed by Nursing Services 04/08/2023 12:39 EDT [facility] Blood CAPILLARY BLOOD / Unknown 04/08/2023 12:37 EDT 04/08/2023 12:39 EDT us Gillian Randolph MD POINT OF CARE TEST ORDERAB LES Final Result [facility] [address] [place] [address] * TRANSTHORACIC ECHO (TTE) COMPLETE W/DOPPLER W/CF [...] Pulmonic valve mean velocity, S 1 cm/[facility] PO[facility] CARE Ascending aorta ID, a-p [...] 7.38 7.31 - 7.41 04/08/2023 5:15 EDT [facility] pCO2, Venous, i-STAT 29(L) 41 - 51 mmHg 04/08/2023 5:15 EDT [facility] pO2, Venous, i-STAT 57(H) 30 - 50 mmHg 04/08/2023 5:15 T [facility] TCO2, Venous, i-STAT 18(L) 22 - 28 mmol/L 04/08/2023 5:15 T [facility] O2 Saturation, Venous, i-STAT 89(H) 60 - 85 % 04/08/2023 5:15 T [facility] Base Excess(+) / Deficit(-), Venous, i-STAT -7(L) -2 - 3 mmol/L 04/08/2023 5:15 [facility] Blood VENOUS BLOOD / Unknown 04/08/2023 5:11 EDT 04/08/2023 5:15 EDT Narrative [facility] - 04/08/2023 5:15 EDT Test Performed by Respiratory us Antonio Majano POINT OF CARE TEST ORDERABLES Fi nal Result [facility] [address] [place] [address] * XR FEEDING TUBE PLACEMENT (04/08/2023 1:45 [...] above interpretation and agree with the findings. [id number] Procedure Note Ramirez Mendez MD - 04/08/2023 [...] the above interpretation andagree with the findings. [id number] us Ac Fish MD IMG DIAGNOSTIC IMAGING [...] above interpretation and agree with the findings. [id number] Narrative 04/08/2023 8:53 EDT XR CHEST PORTABLE [...] the above interpretation andagree with the findings. [id number] Antonio Majano [facility] DIAGNOSTIC IMAGING ORDERABLE S Final Result * (ABNORMAL) FENTANYL AND METABOLITE CONFIRMATION PANEL (04/08/2023 1:22 EDT) Fentanyl Confirmation >40(A) <2 ng/mL 04/09/2023 10:36 EDT [facility] Norfentanyl Confirmation 49(A) <10 ng/mL 04/09/2023 10:36 EDT [facility] Urine URINE / Unknown Urine Collect / Unknown 04/08/2023 1:22 EDT 04/08/2023 1:28 EDT Narrative [facility] - 04/09/2023 10:36 EDT Testing performed by: [facility] [address], [address], [place] [address] Formulation Chemist: Marco Morocho MD; CLIA # [id number] Antonio Majano GEN LAB UNIT COLLECT ORDERABLES Final Result [facility] [address] [place] [address], [address] [place] [address], [facility] [phone] * CK (04/08/2023 1:22 EDT) CK 82 <=250 U/L 04/08/2023 4:29 EDT [facility] Blood VENOUS BLOOD / Unknown Venipuncture / Unknown 04/08/2023 1:22 EDT 04/08/2023 1:28 EDT Antonio Majano CHEMISTRY & BLOOD GAS ORDERABLES Final Result [facility] [address] [place] [address] * MAGNESIUM (04/08/2023 1:22 EDT) Magnesium 2.0 1.7 - 2.8 mg/dL 04/08/2023 2:08 EDT [facility] Blood VENOUS BLOOD / Unknown Venipuncture / Unknown 04/08/2023 1:22 EDT 04/08/2023 1:28 EDT Gillian Randolph MD CHEMISTRY & BLOOD GAS ORDE RABLES Final Result [facility] [address] [place] [address] * (ABNORMAL) POCT GLUCOSE, INTERFACED (04/08/2023 1:22 EDT) [facility] Glucose, POC 151(H) 70 - 100 mg/dL 04/08/2023 1:23 EDT [facility] HN LAB POC COMMENT (GLUCOSE) Test Performed by Nursing Services 04/08/2023 1:23 EDT [facility] Blood CAPILLARY BLOOD / Unknown 04/08/2023 1:22 EDT 04/08/2023 1:23 EDT Gillian Randolph MD POINT OF CARE TEST ORDERAB LES Final Result [facility] [address] [place] [address] * MRSA PCR (04/08/2023 1:22 EDT) [facility] MRSA/Staph aureus Result Staphylococcus aureus detected by PCR (MRSA NOT detected) 04/08/2023 10:57 EDT [facility] Swab BOTH ANTERIOR NARES / Unknown Swab / Unknown 04/08/2023 1:22 EDT 04/08/2023 1:44 EDT Antonio Majano MICROBIOLOGY - GENERAL ORDERABLE S Final Result Performing Organization Address City/[facility]/ZIP Co de Phone Number [facility] [address] [place] [address] * (ABNORMAL) POLYSUBSTANCE USE PANEL, URINE (04/08/2023 1:22 EDT) [facility] Buprenorphine Screen, Urine Negative <5 ng/mL 04/08/2023 11:51 EDT [facility] Oxycodone Screen, Urine Negative <100 ng/mL 04/08/2023 11:51 EDT [facility] Cotinine Screen, Urine Negative <500 ng/mL 04/08/2023 11:51 EDT [facility] Benzodiazepines Screen, Urine Positive(A) <200 ng/mL 04/08/2023 11:51 EDT [facility] Amphetamines Screen, Urine Negative <1000 ng/mL 04/08/2023 11:51 EDT [facility] Cocaine Metabolite Screen, Urine Negative <150 ng/mL 04/08/2023 11:51 EDT [facility] THC Metabolites Screen, Urine Positive(A) <50 ng/mL 04/08/2023 11:51 EDT [facility] Barbiturates Screen, Urine Negative <200 ng/mL 04/08/2023 11:51 EDT [facility] Opiates Screen, Urine Negative <300 ng/mL 04/08/2023 11:51 EDT [facility] Alcohol Metabolite (EtG) Screen, Urine Negative <500 ng/mL 04/08/2023 11:51 EDT [facility] Methadone Screen, Urine Negative <300 ng/mL 04/08/2023 11:51 EDT [facility] Fentanyl Screen with Reflex to Confirmation, U Positive(A) <1 ng/mL 04/08/2023 11:51 EDT [facility] Comment: Trazodone is known to cross react with the Fentanyl immunoassay and may cause a false positive Urine URINE / Unknown Urine Collect / Unknown 04/08/2023 1:22 EDT 04/08/2023 1:28 EDT Narrative [facility] - 04/08/2023 11:51 EDT Testing performed by: [facility] [address] [place] [address], [facility] [address] [address] Formulation Chemist: Marco Morocho MD; CLIA # [id number] Antonio MAURER LAB UNIT COLLECT ORDERABLES Final Result [facility] [address] [place] [address], [facility] [address] [phone] * FIBRINOGEN (04/08/2023 1:22 EDT) [facility] Signature Fibrinogen 323 171 - 384 mg/dL 04/08/2023 1:53 EDT [facility] Blood VENOUS BLOOD / Unknown Venipuncture / Unknown 04/08/2023 1:22 EDT 04/08/2023 1:32 EDT [facility] HEMATOLOGY & PF4 ORDERABLES Val l Result [facility] [address] [place] [address] * PROTIME (04/08/2023 1:22 EDT) [facility] I.N.R. 1.1 0.9 - 1.1 Ratio 04/08/2023 1:53 EDT [facility] Pro Time 12.0 9.7 - 12.8 secs 04/08/2023 1:53 EDT [facility] Blood VENOUS BLOOD / Unknown Venipuncture / Unknown 04/08/2023 1:22 EDT 04/08/2023 1:32 EDT Narrative [facility] - 04/08/2023 1:53 EDT Moderate Intensity Coumadin INR = 2.0-3.0 Adjustments in anticoagulant therapy dose should be based on the INR and NOT on the Protime. Invisible HEMATOLOGY & PF4 ORDERABLES Val l Result Performing Organization Address City/[facility]/ZIP Co de Phone Number [facility] [address] [place] [address] * ETHANOL, BLOOD (04/08/2023 1:22 EDT) [facility] Ethanol, Blood <10 <10 mg/dL mg/dL 04/08/2023 1:52 EDT [facility] Comment:Healthy, non-drinkin g individuals will have an ethanol concentration of <10 mg/dL. Blood VENOUS BLOOD / Unknown Venipuncture / Unknown 04/08/2023 1:22 EDT 04/08/2023 1:28 EDT Invisible CHEMISTRY & BLOOD GAS ORDERABLES Final Result [facility] [address] [place] [address] * TSH (04/08/2023 1:22 EDT) [facility] TSH 0.61 0.47 - 4.68 mIU/L 04/08/2023 2:25 EDT [facility] Blood VENOUS BLOOD / Unknown Venipuncture / Unknown 04/08/2023 1:22 EDT 04/08/2023 1:28 EDT Narrative [facility] - 04/08/2023 2:25 EDT The results of this assay can be falsely lowered due to the consumption of Biotin. Invisible CHEMISTRY & BLOOD GAS ORDERABLES Final Result Performing Organization Address [facility]/ZIP Co de Phone Number [facility] [address] [place] [address] * NT PRO BNP (04/08/2023 1:22 EDT) NT-pro BNP <20 <299 pg/mL 04/08/2023 2:04 EDT [facility] Comment: In the acute setting NT-proBNP values <300 pg/mL have a 98% NPV for excluding acute heart failure. In outpatient populations, NT-proBNP values <125 have a 99% NPV for excluding heart failure. Blood VENOUS BLOOD / Unknown Venipuncture / Unknown 04/08/2023 1:22 EDT 04/08/2023 1:28 EDT Invisible CHEMISTRY & BLOOD GAS ORDERABLES Final Result Performing Organization Address [facility] Co de Phone Number [facility] [address] [place] [address] * (ABNORMAL) COMPREHENSIVE METABOLIC PANEL (CMP) (04/08/2023 1:22 EDT) Sodium 144 136 - 145 mmol/L 04/08/2023 1:52 EDT [facility] Potassium 3.8 3.5 - 5.0 mmol/L 04/08/2023 1:52 EDT [facility] Chloride 111(H) 96 - 110 mmol/L 04/08/2023 1:52 EDT [facility] CO2 Total 19(L) 22 - 32 mmol/L 04/08/2023 1:52 [facility] Glucose 152(H) 70 - 99 mg/dl 04/08/2023 1:52 [facility] BUN 10 10 - 26 mg/dL 04/08/2023 1:52 [facility] Creatinine 0.92 0.66 - 1.25 mg/dL 04/08/2023 1:52 [facility] eGFR 98 >60 mL/min/1.7 3m2 04/08/2023 1:52 [facility] Total Protein 6.2(L) 6.3 - 8.2 g/dL 04/08/2023 1:52 [facility] Albumin 3.7 3.4 - 4.9 g/dL 04/08/2023 1:52 [facility] Alkaline Phosphatase 53 38 - 126 U/L 04/08/2023 1:52 [facility] AST 25 15 - 46 U/L 04/08/2023 1:52 [facility] ALT 18 <50 U/L 04/08/2023 1:52 [facility] Bilirubin, Total <0.5 <1.4 mg/dL 04/08/20 23 1:52 [facility] Calcium 8.5 8.5 - 10.5 mg/dL 04/08/2023 1:52 [facility] Albumin/Globulin Ratio 1.5 1.0 - 2.5 g/dL 04/08/2023 1:52 [facility] Anion Gap 14 5 - 14 mmol/L 04/08/2023 1:52 [facility] Blood VENOUS BLOOD / Unknown Venipuncture / Unknown 04/08/2023 1:22 EDT 04/08/2023 1:28 EDT us Antonio Majano CHEMISTRY & BLOOD GAS ORDERABLES Final Result [facility] [address] [place] [address] * (ABNORMAL) COMPLETE BLOOD COUNT (04/08/2023 1:22 EDT) WBC 13.25(H) 4.00 - 10.40 K/cmm 04/08/2023 1:37 T [facility] RBC 4.61 4.36 - 5.78 M/cmm 04/08/2023 1:37 [facility] Hemoglobin 13.2(L) 13.8 - 17.3 g/dL 04/08/2023 1:37 [facility] HCT 40.8 39.5 - 50.2 % 04/08/2023 1:37 [facility] MCV 89 81 - 95 fL 04/08/2023 1:37 [facility] MCH 28.6 27.6 - 33.0 pg 04/08/2023 1:37 [facility] MCHC 32.4(L) 32.8 - 36.4 g/dL 04/08/2023 1:37 [facility] RDW-CV 14.5(H) <14.2 % 04/08/2023 1:37 [facility] RDW-SD 46.4(H) <46.0 fl 04/08/2023 1:37 [facility] PLT 203 141 - 377 K/cmm 04/08/2023 1:37 [facility] MPV 10.3 9.5 - 12.7 fL 04/08/2023 1:37 [facility] Blood VENOUS BLOOD / Unknown Venipuncture / Unknown 04/08/2023 1:22 EDT 04/08/2023 1:28 EDT us Antonio Majano HEMATOLOGY & PF4 ORDERABLES Val l Result [facility] [address] [place] [address] * EKG 12-LEAD (04/08/2023 0:23 EDT) 04/08/2023 0:23 EDT Narrative [facility] - 04/08/2023 14:50 EDT ? [facility] ? Test Date: ?2023-04-08 Pat Name: ? ROMEO COELHO ?Department: ?? MICU ? Room: ? M412 Gender: ? Male ? Senior Benefits Specialist: ?? : ?1965 ? Requested By: TRINA SINGH Order Number: [id number] ? Reading MD: ?? AHMED HARHASH MD ? Measurements Intervals ?[place] ? Rate: ? 81 ? P: ?29 MD: ? 153 ?QRS: ?33 QRSD: ? 98 ? T: ?41 QT: ? 362 ? QTc: ?422 ? Interpretive Statements SINUS RHYTHM I reviewed the tracing and have either agreed or edited the findings in this report. Electronically Signed On 04-08-2023 14:50:57 EDT by BRANDO LAYNE MD. Procedure Note Brando Layne MD - 04/08/[address] [facility] Test Date: 2023-04-08 Pat Name: ROMEO COELHO [facility] Gender: Male Senior Benefits Specialist: : 1965 Requested By: TRINA SINGH Order Number: [id number] Tiarra MD: BRANDO LAYNE MD Measurements Intervals [place] Rate: 81 P: 29 MD: 153 QRS: 33 QRSD: 98 T: 41 QT: 362 QTc: 422 Interpretive Statements SINUS RHYTHM I reviewed the tracing and have either agreed or edited the findings inthis report. Electronically Signed On 04-08-2023 14:50:57 EDT by BRANDO BARRAZA. us Antonio Majano CARDIAC ECG ORDERABLES Final Res ult [facility] documented in this encounter Visit Diagnoses Diagnosis Encephalopathy- Primary Encephalopathy, unspecified Acute respiratory failure with hypoxia (HCC-CMS) Acute respiratory failure Cerebrovascular accident (CVA), unspecified mechanism (HCC-CMS) Encephalopathy Encephalopathy, unspecified Syncope, unspecified syncope type Acute respiratory failure with hypoxia (HCC-CMS) Acute respiratory failure Unstable angina (HCC-CMS) (HCC) Intermediate coronary syndrome CAD (coronary artery disease) Coronary atherosclerosis of unspecified type of vessel, [place] or graft Anxiety and depression Dysthymic disorder CVA (cerebral vascular accident) ([facility]) Unspecified cerebral artery occlusion with cerebral [...] RN) 903 (Given - Provider: Aiyana Almonte, VEOR) pantoprazole (PROTONIX) tablet 40 mg 40 mg, [...] 03/24 documented in this encounter Care Teams Welfare Project Manager Relationship Specialty Start Date End Date Coni Lim MD [address] [place] [address] PCP - General 12/17/11 documented as of this encounter
--- OUTSIDE RECORDS SUMMARY | 2024-08-22 18:49 | XMS_ITS | Encounter Summary ---
Author Organization [facility] Address [address] [place] [address] Care Team Providers Care Action Finisher Name Role Phone Coni Lim MD Primary Care Provider [phone] Reason for Visit * (Routine/Next Available) - Receiving Office to Obtain Authorization Specialty Diagnoses / Procedures Referred By Contsigifredo t Referred To Contact Procedures CT OUTSIDE IMAGES HEAD Emmy Nichols MD Phone: tel: Referral ID Status Reason Start Date Expiration Date Visits Requested Visits Authorized [id number] Receiving Office to Obtain Authorization 04/07/2023 1 1 Encounter Details Date Type Department Care Team (Latest Contact Info) Description 04/07/2023 20:10 EDT Hospital Encounter [facility] Secondary Reads [place] Discharge Disposition: [...] on filedocumented in this encounter Care Teams Action Finisher Relationship Specialty Start Date End Date Coni Lim MD [address] [place] [id number] PCP - General 12/17/11 documented as of this encounter
--- OUTSIDE RECORDS SUMMARY | 2024-08-22 18:49 | XMS_ITS | Encounter Summary ---
Author Organization [facility] Address [address] [place] [address] Care Team Providers Care Film Reproducer Name Role Phone Coni Lim MD Primary Care Provider [phone] Encounter Details Date Type Department Care Team (Latest Contact Info) Description 01/28/2016 9:36 EDT - 01/28/2016 23:59 EDT Hospital Encounter [address] [address] Emmy Nichols MD [place] Location [address] [place] [id number] Discharge Disposition: Home or Self Care Social [...] Date of Assessment Author No 03/15/2015 0:00 BRIAN Feliz Alcantar * Do you have difficulty [...] Code Departure Means Destination Home or Self Senior Living documented in this encounter Plan of Treatment Not on file documented as of this encounter Visit Diagnoses Not on filedocumented in this encounter Care Teams Film Reproducer Relationship Specialty Start Date End Date Coni Lim MD [address] [place] [address] PCP - General 12/17/11 documented as of this encounter
--- OUTSIDE RECORDS SUMMARY | 2024-08-22 18:49 | XMS_ITS | Encounter Summary ---
Author Organization [facility] [place] [address] Care Team Providers Care Precision Instrument Maker And Repairer Name Role Phone Coni Lim MD Primary Care Provider [phone] Reason for Visit * Reason Comments Chest Pain Encounter Details Date Type Department Care Team (Latest Contact Info) Description 05/13/2011 11:30 [place] [address] Rafael Nieto Jr., MD Chest pain (Primary [...] Test- Final Report Romeo Coe : 1965 [facility], [address] [address] Primary Physician: CONI LIM MD Cc David [...] unspecified documented in this encounter Care Teams Precision Instrument Maker And Repairer Relationship Specialty Start Date End Date Coni Lim MD [address] [place] [address] PCP - General 07/16/10 documented as of this encounter
--- OUTSIDE RECORDS SUMMARY | 2024-08-22 18:50 | XMS_ITS | Encounter Summary ---
Author Organization [facility] Address [address] [place] [address] Care Team Providers Care Chlorinator Operator Name Role Phone Sarita Lim MD Primary Care Provider [phone] Encounter Details Date Type Department Care Team (Latest Contact Info) Description 03/15/2015 1:06 EDT - 03/16/2015 12:40 EDT Hospital Encounter [facility] Medical Intensive Care Unit [address], [place] [id number] Landon Dumont MD [address] [place] [phone] Venu Veliz MD [address] [place] [address] CVA (cerebral vascular accident) (CMS-HCC) ([facility]) (Primary Dx); tPA/rtPA given at another [...] Ischemic stroke Admitted from: Transfer from [facility] Principal/Final Diagnosis: Transient ischemic attack Additional Diagnoses: Hypertension Type 2 diabetes mellitus Hyperlipidemia Coronary artery disease Current tobacco smoking Suspected obstructive sleep apnea Hospital Course: Mr. Coelho is a 49-year-old right-handed male with a history of hypertension, hyperlipidemia, type 2 diabetes mellitus, coronary artery disease, and current tobacco smoking who presented to [facility] with acute onset right face arm and leg weakness after a transesophageal echocardiogram. 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 He has a neurologist (Dr. Negron) in [facility], and will be following up there [...] stroke related stenoses or occlusions: microvascular Modified Dale Scale: 0: No symptoms Evidence of A-fib [...] at Discharge: MS: AAOx3, no language impairments field case manager: PERRL, EOMI, sensation intact to light touch [...] at Discharge: Romeo Coelho Home Medication Instructions ANGELA:[id number] Printed on:03/16/15 0844 Medication Information aspirin 325 [...] as important follow-ups were discussed by this senior underwriter with the patient on 03/16/2015. Patient voiced [...] with your neurologist (03/21/15), Dr. Negron in [place] - Transient ischemic attack, neuro anatomically localizes [...] Mayorga MD Neurology Resident, PGY-3 Pager # [phone] (Pager [phone] after hours or on weekends) Attestation statement: I saw and examined the patient with the resident/fellow on 03/16/15. I agreewith the findings and plan of care documented in the resident's/fellow's note. The note has been edited prior to signing. Venu Veliz MD MSc Optimization Manager [facility] Board certified Adult Neurology Adult Neurology, Neuro-Oncology and Neurophysiology [address] [place] [address], [id number] documented in this encounter Discharge Instructions * Appointments* Antonio Andersen - 03/16/2015 8:56 EDT Please follow-up with Dr. Edel Negron [facility]. [address], [address] [place] [address] Appointment is scheduled for Thursday, March 21 2015 at 3:00pm Please bring the CD containing imaging studies done while at [facility] documented in this encounter Medications [...] SW Discharge Note: SW arranged transportation with [facility] transportation. They will bulk picker Pt outside [facility] at 12:45. Medicare IM has been signed. Nery Townsend POT RUNNER #[id number] * Nery Townsend - 03/16/2015 1058 EDT Initial Case Management/Social Work Assessment and Discharge Plan /Readmission Risk Assessment Physician working diagnosis: Mr. Romeo Coelho is a right handed 49 y.o.-cblh-zpb-twct has a pastmedical history of HTN (hypertension); HLD (hyperlipidemia); DMII (diabetes mellitus, type 2); CAD (coronary artery disease); Smoking; Depression; Fibromyalgia; and Gout. Patient (or designee) understanding of admission: Pt understands his admission Patient Contact Information: Pt's contact is his Dasia Coelho (Spouse) [phone] (H) [phone] (W) MEDICAL AND COMMUNITY SERVICES: Primary Care [...] POA &/or COLST IN PLACE: No CULTURAL, NONDENOMINATIONAL and/or LANGUAGE factors affecting health care/discharge planning:: [...] Yes,PAL working on [facility] [...] collins full, visual acuity grossly normal, DERICK field case manager III, IV, : EOMI with smooth pursuit [...] Radiology Imaging: CT head without contrast from [facility] was negative for intracranial hemorrhage MRI head [...] right-sided weakness s/p GLENNA procedure at an [facility]. CT from [facility] didn't demonstrate intracranial hemorrhage. Predominant right-sided motor [...] given disc with imaging done here at [facility] to bring to appointment F/u with primary care provider (Sarita Lim) with particular emphasis on smoking cessation Antonio Andersen, MS III [phone] * Gertrude Linda - 03/16/2015 0901 EDT [facility] Rehabilitation Therapy Acute Therapies [facility] Occupational Therapy Initial Evaluation/Discontinue Note Date of Service: 03/16/2015 Reason for Referral: Evaluate and treat Precautions: Activity as tolerated, Ambulate and Fall precautions SUBJECTIVE: It feels back to normal-in reference to strength in R-UE. Pain: No pain reported during the interview. OBJECTIVE: Patient Profile: Romeo Coelho is a right hand dominant 49 y.o. male admitted on 03/15/2015 secondary to [facility] ED- STROKE W/LYTICS- TO M4 434.91 CEREBR ART OCCL UNSPEC W INFARCT[ICD-9-CM] The patient lives at [address] [address] History of Present Illness/Injury: Per neuro H&P by Dr. Veliz on 03/15/15: Chief Complaint: Right-sided weakness HPI: Mr. Romeo Coelho is a right handed 49 y.o.-wkyw-nne-kgtb has a past medical history of HTN (hypertension); HLD (hyperlipidemia); DMII (diabetes mellitus, type 2); CAD (coronary artery disease); Smoking; Depression; Fibromyalgia; and Gout. Patient was transferred to from [facility] after administration of TPAfollowing sudden onset [...] normal tensive, patient was subsequently transferred to [facility] for higher level of care [...] GOALS: Short Term Goals: - ?? - Intermediate Goals: - ?? - PLAN: Intervention: Discontinue occupational therapy at [facility]. Further Data: N/a Patient/Family Education: Discharge Planning Role of OT Safety Recommended Discharge Destination: Home with family Recommended Discharge Services: No occupational therapy follow-up services at this time Recommended Discharge Equipment: Patient has all equipment necessary Gertrude Linda OT Student, 03/16/2015, 9:01 COOKIE DAMON OT03/16/201512:46 Pager: [phone] Cosigned by Cookie Damon OT at 03/16/2015 12:49 EDT * Venu Veliz MD - 03/15/2015 0129 EDT Neurology Daily Progress Note Admit Date: [...] assessed CN II: visual collins full, PERRL field case manager III, IV, : EOMI with smooth pursuit [...] (will not provide if there is a COOPERATIVE MANAGER hemorrhage). Code Status: Full Dispo: Likely home tomorrow Consults: None Rob Mayorga MD Neurology Resident, PGY-3 Pager # [phone] (Pager [phone] after hours or on weekends) Attestation statement: [...] his MRI today. Venu Veliz MD MSc Optimization Manager [facility] Board certified Adult Neurology Adult Neurology, Neuro-Oncology and Neurophysiology [address] [facility] [address], [address] * Antonio Andersen - 03/15/2015 1308 EDT [...] afternoon following a GLENNA procedure at an [facility]. He was last seen with out deficits at around 3:30pm yesterday following the GLENNA. Two hours later, a nurse noted that he was having right facial droop and he was immediately brought to the ED at [facility] where a stat CT head was performed and did not demonstrate intracranial hemorrhage. He didn't have any contraindications and thus was given tPA and was subsequently transported here to [facility]. He says that he remembers [...] He was brought to the ED at [facility] and it was presumed that he [...] collins full, visual acuity grossly normal, DERICK field case manager III, IV, : EOMI with smooth pursuit [...] Radiology Imaging: CT head without contrast from [facility] was negative for intracranial hemorrhage Assessment: Mr. Coelho is a 49yo male with a PMH significant for HTN, HLD, T2DM, CAD, current smoker, and past history of a CVA (2004) and recent TIA who presented with right-sided weakness s/p GLENNA procedure at an [facility]. CT from [facility] didn't demonstrate intracranial hemorrhage. Predominant right-sided motor symptoms suggest lesion in the left posterior limb of internal capsule, likely etiology being microvascular disease due to underlying co-morbidities. Recommendations: CVA (cerebral vascular accident) - presumed microvascular etiology - f/u MRI head this evening around 8pm - continue telemetry monitoring - Q4 stroke neuro vital signs - GLENNA results pending from [facility] - PT/OT to assist with getting patient [...] Romeo Coelho is a right handed 49 y.o.-bhzy-lhv-qyqo has a past medical history of HTN (hypertension); HLD (hyperlipidemia); DMII (diabetes mellitus, type 2); CAD (coronary artery disease); Smoking; Depression; Fibromyalgia; and Gout. Patient was transferred to from [facility] after administration of TPAfollowing sudden onset [...] normal tensive, patient was subsequently transferred to [facility] for higher level of care [...] collins full, visual acuity grossly normal, PERRLA field case manager III, IV, : EOMI with smooth pursuit [...] Rehab Code Status: full Elvira Gray MD [facility] Neurology Resident PGY-3 Pager # [phone] (# [phone] nights/weekends) 03/15/2015 3:35 Did patient have a stroke or TIA? Yes Type of Stroke Cerebral Infarction Stroke code: No Transfer from outside hospital: Yes Hospital Name: [facility] Initial Contact Time: patient received TPA at 2020 on March 14 On admission to [facility], NIHSS: NIHSS Testing Interval: 2 [...] during this hospitalization? PT: Yes OT: Yes INDUSTRIAL SERVICE TECHNICIAN: No; patient returned to prior level of [...] his MRI today. Venu Veliz MD MSc Optimization Manager [facility] Board certified Adult Neurology Adult Neurology, Neuro-Oncology and Neurophysiology [address], [address] documented in this encounter Miscellaneous Notes * [...] assess per protocol D: patient admitted from [facility] s/p ischemic stroke. Received TPA prior to transfer to [facility]. A: neuro checks per TPA [...] EDT) 03/21/2015 8:17 EDT us Scan 2 Legal Billing Specialist PROCEDURE/MINOR SURGICAL OR DERABLES Final Result * ECG REPORT - SCANNED (03/20/2015 22:44 EDT) 03/20/2015 22:4 4 EDT us Scan 2 Legal Billing Specialist PROCEDURE/MINOR SURGICAL OR DERABLES Final Result * CREATININE (03/16/2015 4:06 EDT) Creatinine 0.77 0.66 - 1.25 mg/dl 03/16/2015 4:50 EDT [facility] GFR, Calculated 108 >60 ml/min/1.7 3m2 03/16/2015 4:50 EDT [facility] Comment: eGFR calculated using CKD-EPI equation for non Americans. Multiply eGFR by 1.16 for Americans. Blood specimen (specimen) BLOOD SPECIMEN / Unknown 03/16/2015 4:06 EDT 03/16/2015 4:18 EDT us Rob Mayorga MD CHEMISTRY & BLOOD GAS O RDERABLES Final Result [facility] [address] [place] [address] * (ABNORMAL) BUN (03/16/2015 4:06 EDT) BUN 9(L) 10 - 26 mg/dl 03/16/2015 4:50 [facility] Blood specimen (specimen) BLOOD SPECIMEN / Unknown 03/16/2015 4:06 EDT 03/16/2015 4:18 EDT us Rob Mayorga MD CHEMISTRY & BLOOD GAS O RDERABLES Final Result [facility] [address] [place] [address] * (ABNORMAL) HEMAGRAM AND DIFFERENTIAL (03/16/2015 4:06 EDT) Pathologist [facility] WBC 7.36 4.0 - 10.4 K/cmm 03/16/2015 4:45 [facility] RBC 4.80 4.36 - 5.78 M/cmm 03/16/2015 4:45 [facility] Hemoglobin 14.4 13.8 - 17.3 gm/dl 03/16/2015 4:45 [facility] HCT 42.4 39.5 - 50.2 % 03/16/2015 4:45 [facility] MCV 88 81 - 95 fl 03/16/2015 4:45 [facility] MCH 30.0 27.6 - 33.0 pg 03/16/2015 4:45 [facility] MCHC 34.0 32.8 - 36.4 gm/dl 03/16/2015 4:45 [facility] RDW-CV 13.6 11.8 - 14.1 % 03/16/2015 4:45 [facility] RDW-SD 41.6 36.5 - 45.9 fl 03/16/2015 4:45 [facility] PLT 163 141 - 320 K/cmm 03/16/2015 4:45 [facility] MPV 9.0 7.5 - 11.2 fl 03/16/2015 4:45 [facility] % Neutrophils 43.3(L) 45.5 - 79.7 % 03/16/2015 4:45 [facility] % Lymphocytes 42.5 15.0 - 46.8 % 03/16/2015 4:45 [facility] % Monocytes 7.7 1.8 - 12.0 % 03/16/2015 4:45 [facility] % Eosinophils 5.3 0.6 - 6.9 % 03/16/2015 4:45 [facility] % Basophils 1.2 0.2 - 1.4 % 03/16/2015 4:45 [facility] ABS Neutrophils 3.19 2.20 - 8.85 K/cmm 03/16/2015 4:45 [facility] ABS Lymphs 3.13 1.09 - 3.30 K/cmm 03/16/2015 4:45 [facility] ABS Monocytes 0.57 0.1 - 0.8 K/cmm 03/16/2015 4:45 [facility] ABS Eosinophils 0.39 0.03 - 0.61 K/cmm 03/16/2015 4:45 [facility] ABS Basophils 0.09 0.01 - 0.11 K/cmm 03/16/2015 4:45 [facility] Type of Diff: Automated 03/16/2015 4:45 [facility] Blood specimen (specimen) BLOOD SPECIMEN / Unknown 03/16/2015 4:06 EDT 03/16/2015 4:18 EDT us Elvira Gray MD PACKAGES & DNA PROBE ORDERABLES Final Result [facility] [address] [place] [address] * ELECTROLYTES (03/16/2015 4:06 EDT) Sodium 145 136 - 145 mEq/L 03/16/2015 4:50 [facility] Potassium 3.9 3.5 - 5.0 mEq/L 03/16/2015 4:50 EDT [facility] Chloride 108 96 - 110 mEq/L 03/16/2015 4:50 EDT [facility] CO2 25 24 - 32 mEq/L 03/16/2015 4:50 EDT [facility] Blood specimen (specimen) BLOOD SPECIMEN / Unknown 03/16/2015 4:06 EDT 03/16/2015 4:18 EDT us Elvira Gray MD CHEMISTRY & BLOOD GAS ORDERABLES Final Result Performing Organization Address City/[facility]/ZIP Co de Phone Number [facility] [address] [place] [address] * GLUCOSE, GLUCOMETER (03/15/2015 22:45 EDT) [facility] Signature Glucose, Fingerstick 91 70 - 100 mg/dl 03/15/2015 22:57 EDT [facility] Service Center Manager [place] [id number] 03/15/2015 22:57 EDT [facility] Comment:[facility] BLOOD SPECIMEN / Unknown 03/15/2015 22:45 EDT 03/15/2015 22:57 EDT us Landon Dumont MD CHEMISTRY & BLOOD GAS ORDERABLES Final Result Performing Organization Address [facility] Co de Phone Number [facility] [address] [place] [address] * MR HEAD WO CONTRAST (03/15/2015 21:07 [...] (ng/mL) <0.034 <0.034 ng/ml 03/15/2015 19:54 EDT [facility] Blood specimen (specimen) BLOOD SPECIMEN / Unknown 03/15/2015 18:17 EDT 03/15/2015 19:09 EDT Rob Mayorga MD CHEMISTRY & BLOOD GAS O RDERABLES Final Result [facility] [address] [place] [address] * GLUCOSE, GLUCOMETER (03/15/2015 17:19 EDT) Glucose, Fingerstick 100 70 - 100 mg/dl 03/15/2015 17:23 EDT [facility] Service Center Manager ID [id number] 03/15/2015 17:23 EDT [facility] Comment:Test Performed by [facility] BLOOD SPECIMEN / Unknown 03/15/2015 17:19 EDT 03/15/2015 17:23 EDT us Landon Dumont MD CHEMISTRY & BLOOD GAS ORDERABLES Final Result Performing Organization Address City/[facility]/ZIP Co de Phone Number [facility] [address] [place] [address] * UA REFLEX (03/15/2015 16:16 EDT) UA Billing Microscopic not indicated. 03/15/2015 22:40 EDT [facility] URINE / Unknown 03/15/2015 1 6:16 EDT 03/15/2015 22:24 EDT Landon Dumont MD URINALYSIS ORDERABLES Final Resu lt Performing Organization Address City/[facility] Co de Phone Number [facility] [address] [place] [address] * URINALYSIS WITH REFLEX MICROSCOPIC (03/15/2015 16:16 EDT) Color, UA Yellow 03/15/2015 22:40 EDT [facility] Clarity, UA Clear 03/15/2015 22:40 EDT [facility] Glucose, UA Neg Neg 03/15/2015 22:40 T [facility] Bilirubin, UA Neg Neg 03/15/2015 22:40 EDT [facility] Ketones, UA Neg Neg 03/15/2015 22:40 T [facility] Specific [place], Urine 1.010 1.001 - 1.035 03/15/2015 22:40 EDT [facility] Blood, UA Neg Neg 03/15/2015 22:40 T [facility] pH, UA 6.5 4.6 - 8.0 03/15/2015 22:40 EDT [facility] Protein, UA Neg Neg 03/15/2015 22:40 T [facility] Urobilinogen, UA 0.2 0.2 - 1.0 E.U./dl 03/15/2015 22:40 EDT [facility] Nitrite, UA Neg Neg 03/15/2015 22:40 EDT [facility] Leuk Esterase Neg Neg 03/15/2015 22:40 EDT [facility] URINE / Unknown 03/15/2015 1 6:16 EDT 03/15/2015 22:24 EDT us Landon Dumont MD URINALYSIS ORDERABLES Final Resu lt Performing Organization Address [facility] Co de Phone Number [facility] [address] [place] [address] * URINE CULTURE IF UA POSITIVE - NON POCT URINALYSIS ONLY (03/15/2015 16:16 EDT) Culture if Indicated Culture not indicated by urinalysis results. 03/15/2015 22:49 EDT [facility] TOPOGRAPHY UNKNOWN / Unknown 03/15/2015 16:16 EDT 03/15/2015 22:24 EDT us Landon Dumont MD MICROBIOLOGY - GENERAL ORDERABLE S Final Result Performing Organization Address [facility] de Phone Number [facility] [address] [place] [address] * VL CAROTID/VERTEBRAL DUPLEX BILATERAL (03/15/2015 16:06 EDT) Anatomical Region Laterality Modality Other 03/15/2015 16:0 6 EDT Narrative 03/16/2015 9:40 EDT [facility] Care [facility] [address] [place] [address] Technologist: Mono Hernandez IMPRESSIONS 1. 16-49% stenosis [...] homogeneous plaque. Electronically signed by: Satnam Lee [id number] Procedure Note Satnam Lee MD - 03/16/2015 [facility] Diagnostic Laboratory [facility], [facility], [facility] [address] [place] [address] Technologist: Mono Hernandez IMPRESSIONS 1. 16-49% stenosis [...] homogeneous plaque. Electronically signed by: Satnam Lee [id number] Rob Mayorga MD [facility] US VASCULAR ORDERAB LES Final [...] No acute disease. Rob Mayorga MD [facility] DIAGNOSTIC IMAGING ORDERABLES Final Result * (ABNORMAL) GLUCOSE, GLUCOMETER (03/15/2015 11:38 EDT) Glucose, Fingerstick 137(H) 70 - 100 mg/dl 03/15/2015 11:40 EDT [facility] Service Center Manager ID [id number] 03/15/2015 11:40 EDT [facility] Comment:Test Performed by [facility] BLOOD SPECIMEN / Unknown 03/15/2015 11:38 EDT 03/15/2015 11:40 EDT Landon Dumont MD CHEMISTRY & BLOOD GAS ORDERABLES Final Result [facility] [address] [place] [address] * EKG 12-LEAD (03/15/2015 10:54 EDT) 03/15/2015 10:5 4 EDT Narrative [facility] EKG - 03/19/2015 10:49 EDT ? [facility] ? Test Date: ?2015-03-15 Pat Name: ? ROMEO COELHO ?Department: ?? Roy 4 ? Room: ? M401 Gender: ? M ?Copywriting Intern: ?? [id number] : ?1965 ? Requested By: ALYSSIA Basilio Order Number: [id number] ? Reading MD: ?? VILMA BENSON MD ? Measurements Intervals ?Osteen ? Rate: ? 65 ? P: ?-5 RI: ? 145 ?QRS: ?24 QRSD: ? 90 ? T: ?30 QT: ? 385 ? QTc: ?403 ? Interpretive Statements SINUS RHYTHM Compared to ECG 02/21/2014 18:59:09 No significant changes I reviewed the tracing and have either agreed or edited the findings in this report. Electronically Signed On 03-19-15 10:49:51 EDT by VILMA BENSON MD. Procedure Note iVlma Benson Jr., MD - 03/19/2015 [facility] Test Date: 2015-03-15 Pat Name: ROMEO COELHO Department: [place] [address] [place] [facility] Gender: M Copywriting Intern: [id number] : 1965 Requested By: ALYSSIA WINSTON Order Number: [id number] Reading MD: VILMA BENSON MD Measurements Intervals Osteen Rate: 65 P: -5 RI: 145 QRS: 24 QRSD: 90 T: 30 QT: 385 QTc: 403 Interpretive Statements SINUS RHYTHM Compared to ECG 02/21/2014 18:59:09 No significant changes I reviewed the tracing and have either agreed or edited the findings inthis report. Electronically Signed On 03-19-15 10:49:51 EDT by VILMA LIZAMA. us Rob Mayorga MD CARDIAC ECG ORDERABLES Final Result [facility] EKG * TROPONIN I (03/15/2015 10:45 EDT) Troponin I (ng/mL) <0.034 <0.034 ng/ml 03/15/2015 11:31 EDT [facility] Blood specimen (specimen) BLOOD SPECIMEN / Unknown 03/15/2015 10:45 EDT 03/15/2015 11:07 EDT us Rob Mayorga MD CHEMISTRY & BLOOD GAS O RDERABLES Final Result Performing Organization Address [facility]/ZIP Co de Phone Number [facility] [address] [place] [phone] * (ABNORMAL) GLUCOSE, GLUCOMETER (03/15/2015 7:42 EDT) Glucose, Fingerstick 108(H) 70 - 100 mg/dl 03/15/2015 7:44 EDT [facility] Service Center Manager ID [id number] 03/15/2015 7:44 EDT [facility] Comment:[facility] BLOOD SPECIMEN / Unknown 03/15/2015 7:42 EDT 03/15/2015 7:44 EDT us Landon Dumont MD CHEMISTRY & BLOOD GAS ORDERABLES Final Result [facility] [address] [place] [address] * MRSA MOLECULAR DETECTION (03/15/2015 6:00 EDT) Result No Staphylococcus aureus detected by PCR. 03/15/2015 9:35 EDT [facility] Specimen of unknown material (specimen) NASAL ROUTE / Unknown 03/15/2015 6:00 EDT 03/15/2015 7:31 EDT Landon Dumont MD MICROBIOLOGY - GENERAL ORDERABLE S Final Result [facility] [facility] [address] [place] [address] * (ABNORMAL) HEMAGRAM AND DIFFERENTIAL (03/15/2015 1:52 EDT) WBC 8.42 4.0 - 10.4 K/cmm 03/15/2015 3:40 [facility] RBC 4.87 4.36 - 5.78 M/cmm 03/15/2015 3:40 [facility] Hemoglobin 14.5 13.8 - 17.3 gm/dl 03/15/2015 3:40 [facility] HCT 43.2 39.5 - 50.2 % 03/15/2015 3:40 [facility] MCV 89 81 - 95 fl 03/15/2015 3:40 [facility] MCH 29.8 27.6 - 33.0 pg 03/15/2015 3:40 [facility] MCHC 33.6 32.8 - 36.4 gm/dl 03/15/2015 3:40 [facility] RDW-CV 13.7 11.8 - 14.1 % 03/15/2015 3:40 [facility] RDW-SD 42.0 36.5 - 45.9 fl 03/15/2015 3:40 [facility] PLT 151 141 - 320 K/cmm 03/15/2015 3:40 [facility] MPV 8.7 7.5 - 11.2 fl 03/15/2015 3:40 EDT [facility] % Neutrophils 51.2 45.5 - 79.7 % 03/15/2015 3:40 [facility] % Lymphocytes 35.1 15.0 - 46.8 % 03/15/2015 3:40 [facility] % Monocytes 7.4 1.8 - 12.0 % 03/15/2015 3:40 [facility] % Eosinophils 4.4 0.6 - 6.9 % 03/15/2015 3:40 [facility] % Basophils 1.9(H) 0.2 - 1.4 % 03/15/2015 3:40 [facility] ABS Neutrophils 4.31 2.20 - 8.85 K/cmm 03/15/2015 3:40 [facility] ABS Lymphs 2.95 1.09 - 3.30 K/cm 03/15/2015 3:40 [facility] ABS Monocytes 0.63 0.1 - 0.8 K/cmm 03/15/2015 3:40 [facility] ABS Eosinophils 0.37 0.03 - 0.61 K/cmm 03/15/2015 3:40 [facility] ABS Basophils 0.16(H) 0.01 - 0.11 K/cmm 03/15/2015 3:40 [facility] Type of Diff: Automated 03/15/2015 3:40 [facility] Blood specimen (specimen) BLOOD SPECIMEN / Unknown 03/15/2015 1:52 EDT 03/15/2015 3:30 EDT us Elvira Gray MD PACKAGES & DNA PROBE ORDERABLES Final Result [facility] [address] [place] [address] * ELECTROLYTES (03/15/2015 1:52 EDT) Sodium 143 136 - 145 mEq/L 03/15/2015 4:10 T [facility] Potassium 3.8 3.5 - 5.0 mEq/L 03/15/2015 4:10 EDT [facility] Chloride 109 96 - 110 mEq/L 03/15/2015 4:10 EDT [facility] CO2 24 24 - 32 mEq/L 03/15/2015 4:10 EDT [facility] Blood specimen (specimen) BLOOD SPECIMEN / Unknown 03/15/2015 1:52 EDT 03/15/2015 3:30 EDT Elvira Gray MD CHEMISTRY & BLOOD GAS ORDERABLES Final Result Performing Organization Address City/[facility]/ZIP Co de Phone Number [facility] [address] [place] [address] * TSH (03/15/2015 1:52 EDT) TSH 1.97 0.35 - 5.00 uIU/ml 03/15/2015 10:51 EDT [facility] Blood specimen (specimen) BLOOD SPECIMEN / Unknown 03/15/2015 1:52 EDT 03/15/2015 3:30 EDT Elvira Gray MD CHEMISTRY & BLOOD GAS ORDERABLES Final Result Performing Organization Address City/[facility] Co de Phone Number [facility] [address] [place] [address] * LIPID PROFILE (INCLUDES CHOLESTEROL, TRIGLYCERIDES, HDL, LDL) (03/15/2015 1:52 EDT) Cholesterol 118 mg/dl 03/15/2015 4:10 EDT [facility] Comment: Desirable:<200 Borderline High:200-239 High:>kg=144 Triglycerides 274 mg/dl 03/15/2015 4:10 T [facility] Comment: Normal:<150 Borderline High:150-199 High:200-499 Very High:>rw=359 HDL 30 mg/dl 03/15/2015 4:10 T [facility] Comment: Low:<40 Normal:40-60 Desirable: >60 LDL, Calculated 33 mg/dl 5 4:10 EDT [facility] Comment: Optimal:<100 Near Optimal:100-129 Borderline High:130-159 High:160-189 Very High:>lk=259 Chol/HDL Ratio 3.9 03/15/2015 4:10 EDT [facility] Fasting? Unknown 03/15/2015 3:30 EDT [facility] Non HDL Cholesterol 88 mg/dl 03/15/2015 4:10 EDT [facility] Comment: Desirable:<130 Borderline:130-159 High: 160-189 Very High: >au=897 Blood specimen (specimen) BLOOD SPECIMEN / Unknown 03/15/2015 1:52 EDT 03/15/2015 3:30 EDT Elvira Gray MD CHEMISTRY & BLOOD GAS ORDERABLES Final Result Performing Organization Address [facility] de Phone Number [facility] [address] [place] [address] * HEMOGLOBIN A1C (03/15/2015 1:52 EDT) Hemoglobin A1C 6.4 % 03/15/2015 9:40 EDT [facility] Comment: Reference Range: <5.7% Normal 5.7-6.4% Increased risk for diabetes =>6.5% Diagnostic for diabetes (if confirmed) The A1c goal for non adults in general is <7%. The A1c goal for selected patients may be significantly lower than 7% if this can be achieved without significant hypoglycemia or other adverse effects of treatment. Est Avg Glucose 137 mg/dl 5 9:40 EDT [facility] Comment: eAG represents the A1c result expressed as average glucose in mg/dl. Blood specimen (specimen) BLOOD SPECIMEN / Unknown 03/15/2015 1:52 EDT 03/15/2015 3:30 EDT us Elvira Gray MD CHEMISTRY & BLOOD GAS ORDERABLES Final Result Performing Organization Address [facility] de Phone Number [facility] [address] [place] [address] * (ABNORMAL) BUN (03/15/2015 1:52 EDT) BUN 9(L) 10 - 26 mg/dl 03/15/2015 4:10 EDT [facility] Blood specimen (specimen) BLOOD SPECIMEN / Unknown 03/15/2015 1:52 EDT 03/15/2015 3:30 EDT us Elvira Gray MD CHEMISTRY & BLOOD GAS ORDERABLES Final Result Performing Organization Address [facility] Co de Phone Number [facility] [address] [place] [address] * CREATININE (03/15/2015 1:52 EDT) Creatinine 0.81 0.66 - 1.25 mg/dl 03/15/2015 4:10 EDT [facility] GFR, Calculated 106 >60 ml/min/1.7 3m2 03/15/2015 4:10 EDT [facility] Comment: eGFR calculated using CKD-EPI equation for non Americans. Multiply eGFR by 1.16 for Americans. Blood specimen (specimen) BLOOD SPECIMEN / Unknown 03/15/2015 1:52 EDT 03/15/2015 3:30 EDT Result Julianne Gray MD CHEMISTRY & BLOOD GAS ORDERABLES Final Result Performing Organization Address [facility] Co de Phone Number [facility] [address] [place] [id number] * SCREENING GLUCOSE (03/15/2015 1:52 EDT) Glucose, Screening 98 70 - 100 mg/dl 03/15/2015 4:10 EDT [facility] Blood specimen (specimen) BLOOD SPECIMEN / Unknown 03/15/2015 1:52 EDT 03/15/2015 3:30 EDT us Elvira Gray MD CHEMISTRY & BLOOD GAS ORDERABLES Final Result Performing Organization Address [facility]/ZIP Co de Phone Number [facility] [address] [place] [address] documented in this encounter Visit Diagnoses Diagnosis CVA (cerebral vascular accident) ([facility])- Primary Unspecified cerebral artery occlusion with cerebral infarction CVA (cerebral vascular accident) ([facility]) Unspecified cerebral artery occlusion with cerebral infarction [...] Steffanie Chicas RN)1500 (Rate Documented - Provider: Stfefanie Chicas RN)[phone] (Rate Documented - Provider: Steffanie [...] Gomez RN)[phone] (IV Stopped - Provider: Emmy Goemz RN) PRN Medication Order 03/14/2015 03/15/2015 03/16/2015 [...] 02/22 documented in this encounter Care Teams Chlorinator Operator Relationship Specialty Start Date End Date Sarita Lim MD [address] [place] [address] PCP - General 12/17/11 documented as of this encounter
--- OUTSIDE RECORDS SUMMARY | 2024-08-22 18:50 | XMS_ITS | Encounter Summary ---
Author Organization [facility] Address [address] [place] [address] Care Team Providers Care Cyber Special Agent Name Role Phone Unavailable Primary Care Provider Unavailabl e Encounter Details Date Type Department Care Team (Late st Contact Info) Description 12/15/2011 Results Only [facility]- [facility] [phone] Randell Kate, [address] [place], [place] [id number] Social History Tobacco Use Types Packs/Day Years [...] ? ROMEO COE ? Accession #: ? [id number] : ? 1965 (Age: 46) ??M ?Collect [...] ORDERABLES Fi nal Result [facility] [address] [place] [address] documented in this encounter Visit Diagnoses Not on filedocumented in this encounter
--- OUTSIDE RECORDS SUMMARY | 2024-08-22 18:50 | XMS_ITS | Encounter Summary ---
Author Organization [facility] Address [address] [place] [address] Care Team Providers Care Pharmacy Picking Technician Name Role Phone Sarita Lim MD Primary Care Provider [phone] Reason for Referral * Consult (Routine) - Closed Specialty Diagnoses / Procedures Referred By Contac t Referred To Contact Diagnoses S/P coronary artery stent placement Chest pain Kemi Pineda NP Heitzman, Mark, MD Phone: tel: fax: Referral ID Status Reason Start Date Expiration Date V isits Requested Visits Authorized [id number] Closed Specialty Services Required 02/23/2014 1 1 Question Answer Reason for Request: chest pain Scheduling Comments (optional ? describe specific scheduling needs if applicable): already scheduled Expected Discharge Date (Inpatient Only): 02/23/2014 Comments Already scheduled with Dr Leyva February at [address] Leyva's telephone number is [phone]. * Consult (Routine) - Closed Specialty Diagnoses / Procedures Referred By Contac t Referred To Contact Diagnoses S/P coronary artery stent placement Chest pain Kemi Pineda NP Referral ID Status Reason Start Date Expiration Date V isits Requested Visits Authorized [id number] Closed Specialty Services Required 02/22/2014 1 1 Question Answer Reason for Request: chest pain Scheduling Comments (optional ? describe specific scheduling needs if applicable): now, previously requested after 02/15/14 [facility] admission Expected Discharge Date (Inpatient Only): 02/23/2014 Comments Previously requested, please refer to cardiac rehab at [facility] Encounter Details Date Type Department Care Team (Late st Contact Info) Description 02/21/2014 18:30 EDT - 02/23/2014 15:44 EDT Hospital Encounter [facility] Cardiac/Telemetry Unit [address] [place] [id number] Rafy Lopez MD [address] [place] [phone] Jez Ortiz MD [address] [place] [phone] Cali Sage MD [address] [place] [phone] Chest pain (Primary Dx); S/P coronary [...] with PMH of CAD s/p PCI at [facility] in May 2012 and Jul 2013 and admitted at [facility] on 02/15 for USAP and received JACINDA [...] unremitting chest pain and was taken to [facility]. There, troponin and EKG were negative of signs of ischemia. He was started on heparin and nitro gtt and transferred to [facility] for unstable angina. On [...] requested, please refer to cardiac rehab at [facility] Reason for Request: chest pain Expected Discharge Date (Inpatient Only): 02/23/2014 Scheduling Time Frame: now, previously requested after 02/15/14 [facility] admission CONSULT: Consulting provider to render an [...] [address] Leyva's telephone number is [phone]. Reason for Request: chest pain Expected Discharge [...] within their service or practice. Authorizing Provider: Keim Pineda NP Rosannah M. Velasquez, M.D. Internal Medicine, PGY-1 02/23/2014 ATTENDING Attestation statement: I saw and examined the patient with the resident. I agree with the findings and plan of care documented in the resident's note. Jez Ortiz Jr., MD business solutions director [facility] Pager [phone] documented in [...] EDT Stress test results reviewed with stress geophysical laboratory chief. Exercised for almost 7 minutes and patient [...] Dr Leyva [facility], cardiac rehab [facility], tobacco cessation. Tele: NSR 63, no events Exam: CV: S1 S2 no m/r/g Lungs CTA bilaterally Right radial: 2+ no residual ecchymosis or hematoma from 02/15/14 PCI Voiding without difficulty, no dyspepsia Assess: stable for discharge Plan: home today on [place] with limited exercise until fully therapeutic Follow up scheduled with Dr Leyva in [facility] Cardiac rehab [facility] Continue smoking cessation D/w Ludwig Tracy and Moo * Alyssa Phan - 02/23/2014 0901 EDT Spoke with Fany at [facility] transport. They will need a call when patient is ready [phone]. After 4:30pm call [phone]. JENNIFER DC note Patient will be discharged without services Stable per team for d/c Medications should be picked up from [facility] outpatient pharmacy prior to ride at 4:00pm [facility] transport will hot die picker patient at 4:00pm in front of the [facility] Alyssa Phan RN CM #[id number] * Kemi Pineda NP - 02/22/2014 1712 [...] with PMH of CAD s/p PCI at [facility] in May 2012 and Jul 2013, [...] POA &/or COLST IN PLACE: No CULTURAL, ANABAPTISM and/or LANGUAGE factors affecting health care/discharge planning:: [...] with transportation. 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 He will have a stress test today. [...] with PMH of CAD s/p PCI at [facility] in May 2012 and Jul 2013, [...] unremitting chest pain and was taken to [facility]. There, troponin and EKG were negative. He was started on heparin and nitro gtt and transferred to [facility] for observation. 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 Living situation: Lives in [place], [place], with . Family History Problem Relation [...] the resident's note. Jez Ortiz Jr., MD business solutions director [facility] Pager [phone] documented in [...] than 85% MPHR. Arrhythmias were absent. EAGLE FERNADNO RN 02/23/2014 8:56 documented in this encounter [...] 03/09/2014 16:1 4 EDT us Scan 2 Iron Handler IMG OTHER IMAGING ORDERABLE S Final Result * ECG REPORT - SCANNED (03/01/2014 15:54 EDT) 03/01/2014 15:5 4 EDT us Scan 2 Iron Handler PROCEDURE/MINOR SURGICAL OR DERABLES Final Result * ECG REPORT - SCANNED (02/27/2014 12:40 EDT) 02/27/2014 12:4 0 EDT us Scan 2 Iron Handler PROCEDURE/MINOR SURGICAL OR DERABLES Final Result * (ABNORMAL) GLUCOSE, GLUCOMETER (02/23/2014 11:41 EDT) Glucose, Fingerstick 185(H) 70 - 100 mg/dl [facility] Analytics Consultant ID [id number] [facility] Comment:Test Performed by [employer] 02/23/2014 11:4 1 EDT 02/23/2014 11:42 EDT us Jez Ortiz MD CHEMISTRY & BLOOD GAS ORDERAB LES Final Result [facility] [address] [place] [address] * (ABNORMAL) GLUCOSE, GLUCOMETER (02/23/2014 9:28 EDT) Glucose, Fingerstick 153(H) 70 - 100 mg/dl [facility] Analytics Consultant ID [id number] [facility] Comment:Test Performed by [employer] 02/23/2014 9:28 EDT 02/23/2014 9:29 EDT us Rafy Lopez MD CHEMISTRY & BLOOD GAS ORD ERABLES Final Result [facility] [address] [place] [address] * EXERCISE TOLERANCE TEST WAVEFORM (02/23/2014 8:44 EDT) Anatomical Region Laterality Modality Other 02/23/2014 8:44 EDT Narrative 02/23/2014 8:46 EDT For report of this Waveform, see associated Image Study. ?[facility] Stress ? Test Date: ?2014-02-23 Pat Name: ? ROMEO COELHO ?Department: ?? STRESS ? Room: ? Gender: ? M ?Electronic Court Recorder: ?[id number] : ?1965 ? Requested By: ROSSANA Tenorio Order Number: [id number] ?Reading : ? Interpretive Statements Procedure Note 02/23/2014 For report of this Waveform, see associated Image Study. [facility] Test Date: 2014-02-23 Pat Name: ROMEO COELHO Department: STRESS Room: Gender: M Electronic Court Recorder: [id number] : 1965 Requested By: ROSSANA Tenorio Order Number: [id number] Tiarra MD: Interpretive Statements Jermaine Tracy MD CARDIAC SERVICES ORDERABLES Final Result * EXERCISE TOLERANCE TEST (02/23/2014 7:30 EDT) Anatomical Region Laterality Modality Other 02/23/2014 7:30 EDT Narrative 03/03/2014 13:21 EDT *[facility]* [address] [place] [address] *Interpreting Group:* *[facility]* [address] [place] [address] Stress Electrocardiography Supa protocol *PATIENT PRESENTATION* Height: [...] chest pain became unremitting. Pt went to [facility] where EKG negative and troponin negative and reansferred to [facility]. Troponin negative here. Pt is S/P PCI at [facility] May 2012 and Jul 2013. Pt [...] peak heart rate and blood pressure was 19393ae Hg/min. ??1 out of 10 stress-induced chest [...] Note 03/03/2014 *[facility]* [address] [place] [address] *Interpreting Group:* *[facility]* [address] [place] [address] Stress Electrocardiography Supa protocol *PATIENT PRESENTATION* Height: [...] when chest painbecame unremitting. Pt went to [facility] where EKG negative andtroponin negative and reansferred to [facility]. Troponin negative here. Pt is S/P PCI at [facility] May 2012 and Jul 2013. Pt [...] the peak heart rate andblood pressure was 47174lz Hg/min. 1 out of 10 stress-induced chest [...] 70 - 100 mg/dl [facility] Analytics Consultant ID [id number] [facility] Comment:Test Performed by [facility] 02/23/2014 6:40 EDT 02/23/2014 6:44 EDT Rafy Lopez MD CHEMISTRY & BLOOD GAS ORD ERABLES Final Result [facility] [address] [place] [address] * HEMAGRAM (02/23/2014 5:33 EDT) Pathologist [facility] [...] ORDERABLES Fin al Result Performing Organization Address [facility] de Phone Number [facility] [address] [place] [address] * CREATININE (02/23/2014 5:33 EDT) Creatinine 0.76 0.66 - 1.25 mg/dl [facility] GFR, Calculated >60 >60 ml/min/1.7 3m2 [facility] 02/23/2014 5:33 EDT 02/23/2014 5:45 EDT us Endy Mack MD CHEMISTRY & BLOOD GAS ORDERABLE S Final Result Performing Organization Address [facility] de Phone Number [facility] [address] [place] [address] * (ABNORMAL) BUN (02/23/2014 5:33 EDT) BUN 9(L) 10 - 26 mg/dl [facility] 02/23/2014 5:33 EDT 02/23/2014 5:45 EDT us Endy Mack MD CHEMISTRY & BLOOD GAS ORDERABLE S Final Result Performing Organization Address [facility] de Phone Number [facility] [address] [place] [address] * ELECTROLYTES (02/23/2014 5:33 EDT) Sodium 141 [...] Final Result Performing Organization Address [facility]/ZIP Co de Phone Number [facility] [address] [place] [address] * (ABNORMAL) PTT (02/23/2014 5:33 EDT) PTT 73(H) 26 - 37 secs [facility] Comment:Therapeutic Heparin range: 65-100 seconds Blood specimen (specimen) 02/23/2014 5:33 EDT 02/23/2014 5:45 EDT us Jermaine Tracy MD HEMATOLOGY & PF4 ORDERABLES Final Result Performing Organization Address [facility] de Phone Number [facility] [address] [place] [address] * (ABNORMAL) GLUCOSE, GLUCOMETER (02/22/2014 20:43 EDT) Glucose, Fingerstick 110(H) 70 - 100 mg/dl [facility] Analytics Consultant ID [id number] [facility] Comment:Test Performed by [facility] 02/22/2014 20:4 3 EDT 02/22/2014 20:49 EDT us Rafy Lopez MD CHEMISTRY & BLOOD GAS ORD ERABLES Final Result Performing Organization Address [facility] de Phone Number [facility] [address] [place] [address] * INPATIENT ADD-ON (02/22/2014 19:20 EDT) Tests to be added PLEASE ADD CK, MB TO PREVIOUS TESTING [facility] Comment: THANK YOU CKMB Number for problems 75,283 [facility] Accession number [id number] [facility] 02/22/2014 19:2 0 EDT 02/22/2014 19:23 EDT us Rafy Lopez MD HEMATOLOGY & PF4 ORDERABL ES Final Result Performing Organization Address [facility] Co de Phone Number [facility] [address] [place] [address] * CK MB WITH TOTAL CK (02/22/2014 17:21 EDT) CK 40 0 - 250 U/L [facility] MB <0.22 <4.21 ng/ml [facility] 02/22/2014 17:2 1 EDT 02/22/2014 17:32 EDT us Jermaine Tracy MD CHEMISTRY & BLOOD GAS ORDER CARTER Final Result [facility] [address] [place] [address] * TROPONIN I (02/22/2014 17:21 EDT) Troponin I (ng/mL) <0.034 <0.034 ng/ml [facility] Blood specimen (specimen) 02/22/2014 17:21 EDT 02/22/2014 17:32 EDT us Jermaine Tracy MD CHEMISTRY & BLOOD GAS ORDER CARTER Final Result Performing Organization Address [facility] Co de Phone Number [facility] [address] [place] [address] * (ABNORMAL) GLUCOSE, GLUCOMETER (02/22/2014 16:32 EDT) Glucose, Fingerstick 144(H) 70 - 100 mg/dl [facility] Analytics Consultant ID [id number] [facility] Comment:Test Performed by [facility] 02/22/2014 16:3 2 EDT 02/22/2014 16:36 EDT Rafy Lopez MD CHEMISTRY & BLOOD GAS ORD ERABLES Final Result Performing Organization Address City/[facility] Co de Phone Number [facility] [address] [place] [address] * (ABNORMAL) GLUCOSE, GLUCOMETER (02/22/2014 11:15 EDT) Glucose, Fingerstick 102(H) 70 - 100 mg/dl [facility] Analytics Consultant ID [id number] [facility] Comment:Test Performed by [facility] 02/22/2014 11:1 5 EDT 02/22/2014 11:23 EDT Rafy Lopez MD CHEMISTRY & BLOOD GAS ORD ERABLES Final Result Performing Organization Address [facility] de Phone Number [facility] [address] [place] [address] * CK MB WITH TOTAL CK (02/22/2014 [...] ORDER CARTER Final Result Performing Organization Address [facility] de Phone Number [facility] [address] [place] [address] * TROPONIN I (02/22/2014 10:04 EDT) [facility] Troponin I (ng/mL) <0.034 <0.034 ng/ml [facility] Comment: Slight hemolysis Results may be affected due to hemolysis. Blood specimen (specimen) 02/22/2014 10:04 EDT 02/22/2014 10:22 EDT Jermaine Tracy MD CHEMISTRY & BLOOD GAS ORDER CARTER Final Result Performing Organization Address [facility] de Phone Number [facility] [address] [place] [address] * (ABNORMAL) GLUCOSE, GLUCOMETER (02/22/2014 6:30 EDT) Pathologist [facility] Glucose, Fingerstick 131(H) 70 - 100 mg/dl [facility] Analytics Consultant ID [id number] [facility] Comment:Test Performed by [facility] 02/22/2014 6:30 EDT 02/22/2014 6:45 EDT us Rafy Lopez MD CHEMISTRY & BLOOD GAS ORD ERABLES Final Result Performing Organization Address [facility] Co de Phone Number [facility] [address] [place] [address] * HEMAGRAM (02/22/2014 6:19 EDT) WBC 8.93 [...] ORDERABLES Fin al Result Performing Organization Address [facility] de Phone Number [facility] [address] [place] [address] * CREATININE (02/22/2014 6:19 EDT) Creatinine 0.80 0.66 - 1.25 mg/dl [facility] GFR, Calculated >60 >60 ml/min/1.7 3m2 [facility] 02/22/2014 6:19 EDT 02/22/2014 6:41 EDT Endy Mack MD CHEMISTRY & BLOOD GAS ORDERABLE S Final Result Performing Organization Address City/[facility]/ZIP Co de Phone Number [facility] [address] [place] [address] * (ABNORMAL) BUN (02/22/2014 6:19 EDT) Pathologist [facility] BUN 9(L) 10 - 26 mg/dl [facility] 02/22/2014 6:19 EDT 02/22/2014 6:41 EDT us Endy Mack MD CHEMISTRY & BLOOD GAS ORDERABLE S Final Result Performing Organization Address [facility] de Phone Number [facility] [address] [place] [address] * ELECTROLYTES (02/22/2014 6:19 EDT) [facility] Sodium 143 136 - 145 mEq/L [facility] Potassium 4.0 3.5 - 5.0 mEq/L [facility] Chloride 105 96 - 110 mEq/L [facility] CO2 28 24 - 32 mEq/L [facility] 02/22/2014 6:19 EDT 02/22/2014 6:41 EDT us Endy Mack MD CHEMISTRY & BLOOD GAS ORDERABLE S Final Result Performing Organization Address [facility] de Phone Number [facility] [address] [place] [address] * (ABNORMAL) PTT (02/22/2014 6:19 EDT) [facility] PTT 70(H) 26 - 37 secs [facility] Comment:Therapeutic Heparin range: 65-100 seconds Blood specimen (specimen) 02/22/2014 6:19 EDT 02/22/2014 6:41 EDT us Jermaine Tracy MD HEMATOLOGY & PF4 ORDERABLES Final Result Performing Organization Address [facility] de Phone Number [facility] [address] [place] [address] * CK MB WITH TOTAL CK (02/22/2014 2:01 EDT) [facility] CK 36 0 - 250 U/L [facility] MB <0.22 <4.21 ng/ml [facility] Blood specimen (specimen) 02/22/2014 2:01 EDT 02/22/2014 2:06 EDT Jermaine Tracy MD CHEMISTRY & BLOOD GAS ORDER CARTER Final Result Performing Organization Address [facility] de Phone Number [facility] [address] [place] [address] * (ABNORMAL) PTT (02/22/2014 2:01 EDT) [facility] PTT 71(H) 26 - 37 secs [facility] Comment:Therapeutic Heparin range: 65-100 seconds Blood specimen (specimen) 02/22/2014 2:01 EDT 02/22/2014 2:06 EDT Jermaine Tracy MD HEMATOLOGY & PF4 ORDERABLES Final Result Performing Organization Address [facility] de Phone Number [facility] [address] [place] [address] * TROPONIN I (02/22/2014 2:01 EDT) [facility] Troponin I (ng/mL) <0.034 <0.034 ng/ml [facility] Blood specimen (specimen) 02/22/2014 2:01 EDT 02/22/2014 2:06 EDT Jermaine Tracy MD CHEMISTRY & BLOOD GAS ORDER CARTER Final Result Performing Organization Address [facility] de Phone Number [facility] [address] [place] [address] * GLUCOSE, GLUCOMETER (02/21/2014 22:06 EDT) [facility] Glucose, Fingerstick 86 70 - 100 mg/dl [facility] Analytics Consultant ID [id number] [facility] Comment:Test Performed by [facility] 02/21/2014 22:0 6 EDT 02/21/2014 22:19 EDT us Rafy Lopez MD CHEMISTRY & BLOOD GAS ORD ERABLES Final Result Performing Organization Address [facility] de Phone Number [facility] [address] [place] [address] * (ABNORMAL) PTT (02/21/2014 21:36 EDT) PTT 64(H) 26 - 37 secs [facility] Comment:Therapeutic Heparin range: 65-100 seconds Blood specimen (specimen) 02/21/2014 21:36 EDT 02/21/2014 21:43 EDT us Jermaine Tracy MD HEMATOLOGY & PF4 ORDERABLES Final Result Performing Organization Address [facility] de Phone Number [facility] [address] [place] [address] * GLUCOSE, GLUCOMETER (02/21/2014 19:54 EDT) Glucose, Fingerstick 72 70 - 100 mg/dl [facility] Analytics Consultant ID [id number] [facility] Comment:Test Performed by [facility] 02/21/2014 19:5 4 EDT 02/21/2014 19:56 EDT us Rafy Lopez MD CHEMISTRY & BLOOD GAS ORD ERABLES Final Result Performing Organization Address [facility] de Phone Number [facility] [address] [place] [address] * CREATININE (02/21/2014 19:08 EDT) Creatinine 0.72 0.66 - 1.25 mg/dl [facility] GFR, Calculated >60 >60 ml/min/1.7 3m2 [facility] Blood specimen (specimen) 02/21/2014 19:08 EDT 02/21/2014 19:19 EDT us Jermaine Tracy MD CHEMISTRY & BLOOD GAS ORDER CARTER Final Result Performing Organization Address [facility] Co de Phone Number [facility] [address] [place] [address] * (ABNORMAL) BUN (02/21/2014 19:08 EDT) BUN 8(L) 10 - 26 mg/dl [facility] Blood specimen (specimen) 02/21/2014 19:08 EDT 02/21/2014 19:19 EDT Jermaine Tracy MD CHEMISTRY & BLOOD GAS ORDER CARTER Final Result Performing Organization Address [facility] de Phone Number [facility] [address] [place] [address] * (ABNORMAL) HEMAGRAM (02/21/2014 19:08 EDT) WBC [...] PF4 ORDERABLES Final Result Performing Organization Address [facility] de Phone Number [facility] [address] [place] [address] * ELECTROLYTES (02/21/2014 19:08 EDT) Sodium 143 [...] Final Result Performing Organization Address [facility] de Phone Number [facility] [address] [place] [address] * CK MB WITH TOTAL CK (02/21/2014 19:08 EDT) CK 38 0 - 250 U/L [facility] MB <0.22 <4.21 ng/ml [facility] Blood specimen (specimen) 02/21/2014 19:08 EDT 02/21/2014 19:19 EDT us Jermaine Tracy MD CHEMISTRY & BLOOD GAS ORDER CARTER Final Result Performing Organization Address [facility] de Phone Number [facility] [address] [place] [address] * TROPONIN I (02/21/2014 19:08 EDT) Troponin I (ng/mL) <0.034 <0.034 ng/ml [facility] Blood specimen (specimen) 02/21/2014 19:08 EDT 02/21/2014 19:19 EDT us Jermaine Tracy MD CHEMISTRY & BLOOD GAS ORDER CARTER Final Result Performing Organization Address [facility] de Phone Number [facility] [address] [place] [address] * EKG 12-LEAD (02/21/2014 18:59 EDT) 02/21/2014 18:5 9 EDT Narrative [facility] EKG - 02/22/2014 16:34 EDT ?[facility] ? Test Date: ?2014-02-21 Pat Name: ? ROMEO COELHO ?Department: ?? Roy 5 ? Room: ? ME506 Gender: ? M ?Electronic Court Recorder: ?? [id number] : ?1965 ? Requested By: JERMAINE TRACY MD Order Number: [id number] ? Reading MD: ?? TUYET ADES MD ? Measurements Intervals ?Gonzales ? Rate: ? 63 ? P: ?10 VA: ? 155 ?QRS: ?15 QRSD: ? 101 [...] Date: 2014-02-21 Pat Name: ROMEO COELHO Department: [place] [address] Room: [facility] [place] Gender: M Electronic Court Recorder: [id number] : 1965 Requested By: JERMAINE TRACY MD Order Number: [id number] Reading MD: TUYET CASTRO MD Measurements Intervals [place] Rate: 63 P: 10 VA: 155 QRS: 15 QRSD: 101 T: 29 QT: 390 QTc: 400 Interpretive Statements SINUS RHYTHM Within Normal Limits Compared to ECG 02/15/2014 14:19:22 Sinus rhythm now present I reviewed the tracing and agreed or edited the report. ElectronicallySigned On 02-22-14 16:34:29 EDT by TUYET CASTRO MD. us Jermaine Tracy MD CARDIAC ECG ORDERABLES [place] Result [facility] EKG documented in this encounter Visit Diagnoses Diagnosis Unstable angina ([facility])- Primary Intermediate coronary syndrome Chest pain Chest pain, unspecified S/P coronary artery stent placement Postsurgical percutaneous transluminal coronary angioplasty status CAD (coronary artery disease) Coronary atherosclerosis of unspecified type of vessel, [place] or graft CAD (coronary artery disease) Coronary atherosclerosis of unspecified type of vessel, [place] or graft documented in this encounter Administered [...] 09/2013 documented in this encounter Care Teams Pharmacy Picking Technician Relationship Specialty Start Date End Date Sarita Lim MD [address] [place] [address] PCP - General 12/17/11 documented as of this encounter
--- OUTSIDE RECORDS SUMMARY | 2024-08-22 18:50 | XMS_ITS | Encounter Summary ---
Author Organization [facility] Address [address] [place] [address] Care Team Providers Care Screw Remover Name Role Phone Unavailable Primary Care Provider Unavailabl e Encounter Details Date Type Department Care Team (Late st Contact Info) Description 11/13/2008 Before PRISM Converted Visit (Maple) [facility] - Maple conversion [address] [place] [address] Irving Jha MD [address] [place] [id number] Social History Tobacco Use Types Packs/Day Years [...] ? ROMEO COE ? Accession #: ? [id number] ? : ? 1965 (Age: 43) ??M [...] the rectal biopsy (specimen B). ??( ?? Rene/[facility] ? Document reviewed and electronically signed [...] submitted intact as (A). ? [facility] Rmoeo Coe and #2 rectum bx are three biopsies which vary in size from 0.3 x 0.1 x 0.1 cm up to 0.4 x 0.3 x 0.3 cm. ??The specimen is submitted intact as (B). ??(DIANE Smith)/rajig ? End of Report ? [facility] 11/13/2008 11/14/2008 9:2 2 EDT us Irving Jha MD PATHOLOGY ORDERABLES Final Result [facility] [address] [place] [address] documented in this encounter Visit Diagnoses Not on filedocumented in this encounter
--- OUTSIDE RECORDS SUMMARY | 2024-08-22 18:50 | XMS_ITS | Encounter Summary ---
Author Organization [facility] Address [address] [place] [address] Care Team Providers Care Commodities Clerk Name Role Phone Sarita Lim MD Primary Care Provider [phone] Reason for Referral * Consult (Routine) - Closed Specialty Diagnoses / Procedures Referred By Contac t Referred To Contact Diagnoses CAD (coronary artery disease) S/P coronary artery stent placement NSTEMI (non-ST elevated myocardial infarction) ([facility]) Kemi Vo NP Heitzman, Mark, MD Phone: tel: fax: Referral ID Status Reason Start Date Expiration Date V isits Requested Visits Authorized [id number] Closed Specialty Services Required 02/15/2014 1 1 Question Answer Reason for Request: post NSTEMI post pci Scheduling Comments (optional ? describe specific scheduling needs if applicable): 1 month Expected Discharge Date (Inpatient Only): 02/16/2014 Comments Please schedule in [address] eLyva at [facility] Cardiology clinic * Consult (Routine) - Closed Specialty Diagnoses / Procedures Referred By Contac t Referred To Contact Cardiac Rehabilitation Diagnoses CAD (coronary artery disease) S/P coronary artery stent placement NSTEMI (non-ST elevated myocardial infarction) ([facility]) Kemi Vo NP Referral ID Status Reason Start Date Expiration Date V isits Requested Visits Authorized [id number] Closed Specialty Services Required 02/15/2014 1 1 Question Answer Reason for Request: post NSTEMI, CAD, post pci Scheduling Comments (optional ? describe specific scheduling needs if applicable): 1 week Expected Discharge Date (Inpatient Only): 02/16/2014 Comments Please refer to cardiac rehab at [facility] Encounter Details Date Type Department Care Team (Late st Contact Info) Description 02/15/2014 13:04 EDT - 02/16/2014 15:32 EDT Hospital Encounter [facility] Cardiac/Telemetry Unit [address] [place] [address] Mahi Mcginnis MD [address] [facility] Level [address] [place] [address] Chest pain (Primary Dx); CAD (coronary artery disease); Unstable angina ([facility]); S/P coronary artery stent placement; NSTEMI (non-ST elevated myocardial infarction) ([facility]) Discharge Disposition: Home [...] hx of of CAD s/p PCI at [facility] in May 2012 and Jul 2013, tobacco [...] up was requested with Dr. Leyva at [facility] Cardiology. Clinical Issues Needing Follow-up: None [...] Rehabilitation Please refer to cardiac rehab at [facility] Reason for Request: post NSTEMI, CAD, [...] Vo NP Additional Information: Please see your Ross Carrier Driver Dr Adithya Leyva in [facility], on February at [address] Leyva's telephone number is [phone]. Follow-Up Labs and Tests: None Sophie Salinas MD 02/16/2014 13:57 ATTENDING Attestation statement: I saw and examined the patient with the resident. I agree with the findings and plan of care documented in the resident's note. Vilma Benson Jr., MD store specialist [facility] Pager [phone] documented in this encounter Discharge Instructions * Appointments* Tye Mariah - 02/16/2014 13:41 EDT Please see your Ross Carrier Driver Dr Adithya Leyva in [facility], on February at [address] Leyva's telephone number is [phone]. documented in this encounter Medications at Time [...] 1045 EDT 02/16: A volunteer drive from [employer] 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 His name is Sal. Patient aware. Katia Nichols RN [facility] #[id number] * Sophie Salinas MD - 02/15/2014 1600 EDT Cardiology Post Procedure Check: S: [facility] today. Patient denies chest pain, palpitations, [...] Salinas MD MPH - PGY 2 Pager [phone] 02/15/2014 * Vilma Benson Jr., MD - [...] or concerns. Sincerely, Vilma Benson Jr. MD store specialist [facility] Pager # [phone] * Katia Nichols RN [...] POA &/or COLST IN PLACE: No CULTURAL, MORMONISM and/or LANGUAGE factors affecting health care/discharge planning:: [...] with hx of CAD s/p PCI at [facility] in May 2012 and Jul 2013, tobacco [...] clinical course Sophie Salinas M.D. M.P.H PGY-2, #[id number] Cosigned by Elias Ge MD at 02/15/2014 12:59 EDT * Nathan Tyson MD - 02/14/2014 0988 EDT 48 with PMH of HTN, diabetes, dyslipidemia, smoker, coronary artery disease S/P stents in [facility] May of 2012 in Julyo13 was [...] cad (s/p PCI with 3 stents at [facility]), htn, hld, dmii, who presents with chest [...] clinical course Farhan Alfaro MD Pager # [phone] 02/14/2014 22:33 I have seen and evaluated the patient. I agree with the assessment and plan as outlined above by Dr. Alfaro. Mr. Coeloh has known CAD and is s/p PCI at [facility] on at least 2 occassions. He now presents with a clinical history c/w unstable angina. The plan if for [facility] today. The patient is aware and agrees. He also needs risk factor modification - smoking cessation. We emphasized the importance of this toMr. Coelho. ELIAS GE MD Attending Ross Carrier Driver documented in this encounter Procedure Notes * Vilma Benson Jr., MD - 02/15/2014 1204 EDT Images from the original note were not included. Cardiovascular Catheterization Laboratory Preliminary Report -- Catheterization Date of Service/Procedure: 02/15/2014 Attending Physician: Vimla Benson Jr., MD School Admissions Representative: Kemi Vo NP Pre-Procedure Diagnosis/Indication: Romeo Coelho [...] artery Procedure: He was brought to the [facility] Cardiac Catheterization Laboratory for the procedure: Diagnostic [...] Care - Asad Bauman RN - 02/15/2014 4655 EDT Problem: CIRCULATORY STATUS Goal: Patient Has [...] Care - Gina Mix RN - 02/15/2014 0892 EDT Problem: Acute Ischemic Pain - Cardiac [...] Care - Asad Bauman RN - 02/14/2014 6113 EDT Problem: HOSPITAL ORIENTATION/SAFETY Goal: Oriented To Hospital Environment Outcome: Completed Date Met: 02/14/14 D: Patient arrived to [place] [address]. Vital signs noted, and tele applied. Patient [...] Patient with 0/10 CP. Plan is for [facility] in AM. 0018: Patient states 4/10 [...] placement NSTEMI (non-ST elevated myocardial infarction) ([facility]) Ordered: 02/15/2014 AMB CONS/FOLLOW UP CARDIOLOGY Outpatient Referral Routine CAD (coronary artery disease) S/P coronary artery stent placement NSTEMI (non-ST elevated myocardial infarction) ([facility]) Ordered: 02/15/2014 documented [...] 09/05/2015 10:2 4 EST us Scan 2 Homogenizer Operator PROCEDURE/MINOR SURGICAL OR DERABLES Final Result * ECG REPORT - SCANNED (02/21/2014 15:36 EDT) 02/21/2014 15:3 6 EDT us Scan 2 Homogenizer Operator PROCEDURE/MINOR SURGICAL OR DERABLES Final Result * INVASIVE CARDIOLOGY REPORT-SCANNED (02/21/2014 15:36 EDT) 02/21/2014 15:3 6 EDT us Scan 2 Homogenizer Operator PROCEDURE/MINOR SURGICAL OR DERABLES Final Result * ECG REPORT - SCANNED (02/20/2014 10:15 EDT) 02/20/2014 10:1 5 EDT us Scan 2 Homogenizer Operator PROCEDURE/MINOR SURGICAL OR DERABLES Final Result * ECG REPORT - SCANNED (02/20/2014 10:03 EDT) 02/20/2014 10:0 3 EDT us Scan 2 Homogenizer Operator PROCEDURE/MINOR SURGICAL OR DERABLES Final Result * ECG REPORT - SCANNED (02/17/2014 15:12 EDT) 02/17/2014 15:1 2 EDT us Scan 2 Homogenizer Operator PROCEDURE/MINOR SURGICAL OR DERABLES Final Result * ECG REPORT - SCANNED (02/17/2014 15:10 EDT) 02/17/2014 15:1 0 EDT us Scan 2 Homogenizer Operator PROCEDURE/MINOR SURGICAL OR DERABLES Final Result * (ABNORMAL) GLUCOSE, GLUCOMETER (02/16/2014 12:01 EDT) Glucose, Fingerstick 133(H) 70 - 100 mg/dl [facility] Joint Cutter Machine ID [id number] [facility] Comment:Test Performed by [facility] [employer] 02/16/2014 12:0 1 EDT 02/16/2014 12:02 EDT us Mahi Mcginnis MD CHEMISTRY & BLOOD GAS ORDER CARTER Final Result [facility] [address] [place] [address] * ECHOCARDIOGRAM (02/16/2014 12:00 EDT) Anatomical Region Laterality Modality Other 02/16/2014 12:0 0 EDT Narrative 02/16/2014 12:53 EDT *Interpreting Group:* *[facility]* [address] [place] [address] *STUDY CONCLUSIONS* Summary: 1. Left ventricle: The [...] Mcginnis MD REFERRING ?Sarita Lim PERFORMING ?? [facility], ORDERING ? Sophie Salinas REFERRING ?Sophie Salinas FOOTWEAR SALES COORDINATOR ??Latoya Murcia *PROCEDURE DATA* Procedure information: ??This study was interpreted by [facility]. ??Study status: ??Routine. Transthoracic echocardiography. ??M-mode, complete [...] 02/16/2014 12:53 Procedure Note 02/16/2014 *Interpreting Group:* *[facility]* [address] [place] [address] *STUDY CONCLUSIONS* Summary: 1. Left ventricle: The cavity size was normal. Wall thickness was normal. Systolic function was normal. The estimated ejection fraction [id number]%. Wall motion was normal; there were no [...] Kajal ORDERING Sophie Salinas REFERRING Sophie Salinas FOOTWEAR SALES COORDINATOR Latoya Murcia *PROCEDURE DATA* Procedure information: This study was interpreted by [facility]. Study status: Routine.Transthoracic echocardiography. M-mode, complete 2D, [...] % Monocytes 6.7 1.8 - 12.0 % [facility] % Eosinophils 2.7 0.6 - [...] Fi nal Result [facility] [address] [place] [address] * (ABNORMAL) HEMAGRAM (02/16/2014 5:53 EDT) WBC [...] ORDERABLES Fi nal Result Performing Organization Address [facility] Co de Phone Number [facility] [address] [place] [address] * PTT (02/16/2014 5:53 EDT) PTT 30 26 - 37 secs [facility] Comment:Therapeutic Heparin range: 65-100 seconds Blood specimen (specimen) 02/16/2014 5:53 EDT 02/16/2014 5:59 EDT us Mahi Mcginnis MD HEMATOLOGY & PF4 ORDERABLES Final Result Performing Organization Address [facility] de Phone Number [facility] [address] [place] [address] * CREATININE (02/16/2014 5:53 EDT) Creatinine 0.70 0.66 - 1.25 mg/dl [facility] GFR, Calculated >60 >60 ml/min/1.7 3m2 [facility] Blood specimen (specimen) 02/16/2014 5:53 EDT 02/16/2014 5:59 EDT Farhan Alfaro MD CHEMISTRY & BLOOD GAS ORDERABL ES Final Result Performing Organization Address City/[facility]/ZIP Co de Phone Number [facility] [address] [place] [address] * BUN (02/16/2014 5:53 EDT) BUN 11 10 - 26 mg/dl [facility] Blood specimen (specimen) 02/16/2014 5:53 EDT 02/16/2014 5:59 EDT us Farhan Alfaro MD CHEMISTRY & BLOOD GAS ORDERABL ES Final Result Performing Organization Address [facility] Co de Phone Number [facility] [address] [place] [address] * ELECTROLYTES (02/16/2014 5:53 EDT) Sodium 141 [...] ORDERABL ES Final Result Performing Organization Address [facility] Co de Phone Number [facility] [address] [place] [address] * ALT (02/16/2014 5:53 EDT) ALT 22 21 - 72 U/L [facility] Blood specimen (specimen) 02/16/2014 5:53 EDT 02/16/2014 5:59 EDT us Kemi Vo NP CHEMISTRY & BLOOD GAS ORDERABLE S Final Result Performing Organization Address [facility] Co de Phone Number [facility] [address] [place] [address] * AST (02/16/2014 5:53 EDT) AST 15 15 - 46 U/L [facility] Blood specimen (specimen) 02/16/2014 5:53 EDT 02/16/2014 5:59 EDT Kemi Edwin TRAVEL SERVICE CONSULTANT CHEMISTRY & BLOOD GAS ORDERABLE S Final Result Performing Organization Address [facility] de Phone Number [facility] [address] [place] [address] * LIPID PROFILE (INCLUDES CHOLESTEROL, TRIGLYCERIDES, HDL, LDL) (02/16/2014 5:53 EDT) Cholesterol 154 mg/dl [facility] Comment: Desirable:<200 Borderline High:200-239 High:>vx=444 Triglycerides 254 mg/dl [facility]ZZY [facility] Comment: Normal:<150 Borderline High:150-199 High:200-499 Very High:>sk=335 HDL 37 mg/dl [facility] Comment: Low:<40 Normal:40-60 Desirable: >60 LDL, Calculated 66 mg/dl ASHWINI [facility] Comment: Optimal:<100 Near Optimal:100-129 Borderline High:130-159 High:160-189 Very High:>ja=014 Chol/HDL Ratio 4.2 [facility] Fasting? YES [facility] Non HDL Cholesterol 117 mg/dl [facility] Comment: Desirable:<130 Borderline:130-159 High: 160-189 Very High: >rg=389 Blood specimen (specimen) 02/16/2014 5:53 EDT 02/16/2014 5:59 EDT Kemi Vo TRAVEL SERVICE CONSULTANT CHEMISTRY & BLOOD GAS ORDERABLE S Final Result Performing Organization Address [facility] de Phone Number [facility] [address] [place] [address] * CK MB WITH TOTAL CK (02/16/2014 5:53 EDT) CK 47 0 - 250 U/L [facility] MB 0.54 <4.21 ng/ml [facility] Blood specimen (specimen) 02/16/2014 5:53 EDT 02/16/2014 5:59 EDT us Kemi Vo NP CHEMISTRY & BLOOD GAS ORDERABLE S Final Result Performing Organization Address [facility] Phone Number [facility] [address] [place] [address] * (ABNORMAL) GLUCOSE, GLUCOMETER (02/16/2014 5:51 EDT) Glucose, Fingerstick 105(H) 70 - 100 mg/dl [facility] Joint Cutter Machine ID [id number] [facility] Comment:Test Performed by [facility] 02/16/2014 5:51 EDT 02/16/2014 5:52 EDT us Mahi Mcginnis MD CHEMISTRY & BLOOD GAS ORDER CARTER Final Result Performing Organization Address [facility] Phone Number [facility] [address] [place] [address] * GLUCOSE, GLUCOMETER (02/15/2014 20:41 EDT) Glucose, Fingerstick 78 70 - 100 mg/dl [facility] Joint Cutter Machine ID [id number] [facility] Comment:Test Performed by [employer] [facility] 02/15/2014 20:4 1 EDT 02/15/2014 20:45 EDT Mahi Mcginnis MD CHEMISTRY & BLOOD GAS ORDER CARTER Final Result Performing Organization Address [facility] Phone Number [facility] [address] [place] [address] * (ABNORMAL) GLUCOSE, GLUCOMETER (02/15/2014 16:44 EDT) Glucose, Fingerstick 154(H) 70 - 100 mg/dl [facility] Joint Cutter Machine ID [id number] [facility] Comment:Test Performed by [employer] 02/15/2014 16:4 4 EDT 02/15/2014 16:49 EDT us Mahi Mcginnis MD CHEMISTRY & BLOOD GAS ORDER CARTER Final Result [facility] [address] [place] [address] * EKG 12-LEAD (02/15/2014 14:19 EDT) 02/15/2014 14:1 9 EDT Narrative [facility] EKG - 02/17/2014 8:24 EDT ?[facility] ? Test Date: ?2014-02-15 Pat Name: ? ROMEO PATELONEY ?Department: ?? Kirill Lees ? Room: ? ME507 Gender: ? M ?News Librarian: ?? [id number] : ?1965 ? Requested By: KEMI VO TRAVEL SERVICE CONSULTANT Order Number: [id number] ? Reading MD: ?? VILMA BENSON MD ? Measurements Intervals ?[place] ? Rate: ? 57 ? P: ?-3 VA: ? 156 ?QRS: ?22 QRSD: ? 103 [...] Date: 2014-02-15 Pat Name: ROMEO COELHO Department: [place] [address] Room: [facility] Gender: M News Librarian: [id number] : 1965 Requested By: KEMI VO TRAVEL SERVICE CONSULTANT Order Number: [id number] Reading MD: VILMA BENSON MD Measurements Intervals [place] Rate: 57 P: -3 VA: 156 QRS: 22 QRSD: 103 T: 44 QT: 401 QTc: 392 Interpretive Statements SINUS BRADYCARDIA Compared to ECG 02/15/2014 08:43:51 Sinus bradycardia now present I reviewed the tracing and agreed or edited the report. ElectronicallySigned On 02-17-14 08:24:39 EDT by VILMA BENSON MD. us Kemi Vo TRAVEL SERVICE CONSULTANT CARDIAC ECG ORDERABLES Final Re sult Performing Organization Address [facility] Co de Phone Number [facility] EKG * CK MB WITH TOTAL CK (02/15/2014 14:02 EDT) CK 51 0 - 250 U/L [facility] MB <0.22 <4.21 ng/ml [facility] Blood specimen (specimen) 02/15/2014 14:02 EDT 02/15/2014 14:30 EDT us Farhan Alfaro MD CHEMISTRY & BLOOD GAS ORDERABL ES Final Result Performing Organization Address [facility] de Phone Number [facility] [address] [place] [address] * (ABNORMAL) GLUCOSE, GLUCOMETER (02/15/2014 12:38 EDT) Glucose, Fingerstick 106(H) 70 - 100 mg/dl [facility] Joint Cutter Machine ID [id number] [facility] Comment:Test Performed by [facility] 02/15/2014 12:3 8 EDT 02/15/2014 13:32 EDT us Mahi Mcginnis MD CHEMISTRY & BLOOD GAS ORDER CARTER Final Result Performing Organization Address [facility] de Phone Number [facility] [address] [place] [address] * LEFT HEART CATH (02/15/2014 10:55 EDT) Anatomical Region Laterality Modality Other 02/15/2014 10:5 5 EDT Narrative 02/15/2014 16:46 EDT Cardiology [address] [place] [address] Catheterization Laboratory Study Patient: Romeo Coelho ? Study Date: ?02/15/2014 ? Accession #: ? [id number] : ? 1965 Diagnostic Attending: ??Vilma Benson [...] ??Right radial artery access. A 6 FR/10 HitlabumAnonymess Sheath [place] SS .021 sheath was ?advanced into the [...] MD 2014-02-15 16:46 Procedure Note 02/15/[address] [place] [address] Catheterization Laboratory Study Patient: Romeo Coelho Study [...] patient's anginal symptoms and an ACC/AHA type [id number] risk lesion for intervention, with 2 or [...] artery access. A 6 FR/10 Terumo Sheath [place] SS .021sheath was advanced into the vessel. [...] catheter was exchanged for a 6fr Runway [id number]. 9. Pressure derived flow reserve measurement for [...] with two inflations and a maximum pressure [id number]. STUDY COMPLETION: The estimated blood loss was [...] of 12mcg/min. Fentanyl, for a total dose al79stl. Midazolam, for a total dose of 2mg. Nitroglycerin, for a total dose [id number], into the coronary artery. Contrast: Isovue 370 [...] ORDERABLES Final Result [facility] [address] [place] [address] * EKG 12-LEAD (02/15/2014 8:43 EDT) 02/15/2014 8:43 EDT Narrative [facility] EKG - 02/15/2014 22:25 EDT ?[facility] ? Test Date: ?2014-02-15 Pat Name: ? ROMEO COELHO ?Department: ?? Kir[facility] 5 ? Room: ? ME507 Gender: ? M ?News Librarian: ?? [id number] : ?1965 ? Requested By: SOPHIE SALINAS MD Order Number: [id number] ? Reading MD: ?? KATHIE BARON MD ? Measurements Intervals ?[place] ? Rate: ? 61 ? P: ?-1 VA: ? 149 ?QRS: ?20 QRSD: ? 98 [...] Date: 2014-02-15 Pat Name: ROMEO COELHO Department: [place] [address] Room: [facility] Gender: M News Librarian: [id number] : 1965 Requested By: SOPHIE PEREIRA Order Number: [id number] Tiarra MD: KATHIE BARON MD Measurements Intervals [place] Rate: 61 P: -1 VA: 149 QRS: 20 QRSD: 98 T: 37 QT: 386 QTc: 392 Interpretive Statements SINUS RHYTHM NORMAL ECG Compared to ECG 02/15/2014 00:29:30 No significant changes I reviewed the tracing and agreed or edited the report. ElectronicallySigned On 02-15-14 22:25:53 EDT by KATHIE BARON MD. us Sophie Salinas MD CARDIAC ECG ORDERABLES [place] Result [facility] EKG * (ABNORMAL) GLUCOSE, GLUCOMETER (02/15/2014 6:40 EDT) [facility] Glucose, Fingerstick 146(H) 70 - 100 mg/dl [facility] Joint Cutter Machine ID [id number] [facility] Comment:Test Performed by [facility] 02/15/2014 6:40 EDT 02/15/2014 6:41 EDT us Mahi Mcginnis MD CHEMISTRY & BLOOD GAS ORDER CARTER Final Result Performing Organization Address City/[facility] Co de Phone Number [facility] [address] [place] [address] * (ABNORMAL) DIFFERENTIAL (02/15/2014 5:34 EDT) % [...] ORDERABLES Fi nal Result Performing Organization Address City/[facility]/ZIP Co de Phone Number [facility] [address] [place] [address] * (ABNORMAL) HEMAGRAM (02/15/2014 5:34 EDT) WBC [...] ORDERABLES Fi nal Result Performing Organization Address [facility] de Phone Number [facility] [address] [place] [address] * CREATININE (02/15/2014 5:34 EDT) Creatinine 0.80 0.66 - 1.25 mg/dl [facility] GFR, Calculated >60 >60 ml/min/1.7 3m2 [facility] Blood specimen (specimen) 02/15/2014 5:34 EDT 02/15/2014 5:53 EDT Farhan Alfaro MD CHEMISTRY & BLOOD GAS ORDERABL ES Final Result Performing Organization Address [facility] de Phone Number [facility] [address] [place] [address] * BUN (02/15/2014 5:34 EDT) BUN 10 10 - 26 mg/dl [facility] Blood specimen (specimen) 02/15/2014 5:34 EDT 02/15/2014 5:53 EDT Farhan Alfaro MD CHEMISTRY & BLOOD GAS ORDERABL ES Final Result Performing Organization Address [facility] de Phone Number [facility] [address] [place] [address] * ELECTROLYTES (02/15/2014 5:34 EDT) Sodium 143 [...] Final Result Performing Organization Address [facility] de Phone Number [facility] [address] [place] [address] * LIPID PROFILE (INCLUDES CHOLESTEROL, TRIGLYCERIDES, HDL, LDL) (02/15/2014 5:34 EDT) Cholesterol 143 mg/dl [facility] Comment: Desirable:<200 Borderline High:200-239 High:>ve=564 Triglycerides 266 mg/dl [facility] Comment: Normal:<150 Borderline High:150-199 High:200-499 Very High:>ic=921 HDL 39 mg/dl [facility] Comment: Low:<40 Normal:40-60 Desirable: >60 LDL, Calculated 51 mg/dl [facility] Comment: Optimal:<100 Near Optimal:100-129 Borderline High:130-159 High:160-189 Very High:>bj=213 Chol/HDL Ratio 3.7 [facility] Fasting? Unknown [facility] Non HDL Cholesterol 104 mg/dl [facility] Comment: Desirable:<130 Borderline:130-159 High: 160-189 Very High: >wu=432 Blood specimen (specimen) 02/15/2014 5:34 EDT 02/15/2014 5:53 EDT Farhan Alfaro MD CHEMISTRY & BLOOD GAS ORDERABL ES Final Result Performing Organization Address [facility] de Phone Number [facility] [address] [place] [address] * TROPONIN I (02/15/2014 5:34 EDT) [facility] Troponin I (ng/mL) <0.034 <0.034 ng/ml [facility] Blood specimen (specimen) 02/15/2014 5:34 EDT 02/15/2014 5:53 EDT Farhan Alfaro MD CHEMISTRY & BLOOD GAS ORDERABL ES Final Result Performing Organization Address [facility] de Phone Number [facility] [address] [place] [address] * CK MB WITH TOTAL CK (02/15/2014 5:34 EDT) [facility] CK 55 0 - 250 U/L [facility] MB 0.25 <4.21 ng/ml [facility] Blood specimen (specimen) 02/15/2014 5:34 EDT 02/15/2014 5:53 EDT Farhan Alfaro MD CHEMISTRY & BLOOD GAS ORDERABL ES Final Result Performing Organization Address [facility] [place] [address] * (ABNORMAL) PTT (02/15/2014 1:57 EDT) [facility] PTT 48(H) 26 - 37 secs [facility] Comment:Therapeutic Heparin range: 65-100 seconds Blood specimen (specimen) 02/15/2014 1:57 EDT 02/15/2014 2:20 EDT Mahi Mcginnis MD HEMATOLOGY & PF4 ORDERABLES Final Result Performing Organization Address [facility] de Phone Number [facility] [address] [place] [address] * EKG 12-LEAD (02/15/2014 0:29 EDT) 02/15/2014 0:29 EDT Narrative [facility] EKG - 02/17/2014 11:31 EDT ?[facility] ? Test Date: ?2014-02-15 Pat Name: ? ROMEO COELHO ?Department: ?? Roy 5 ? Room: ? [place]507 Gender: ? M ?News Librarian: ?? [id number] : ?1965 ? Requested By: MAHI ELENA MD Order Number: [id number] ? Reading MD: ?? ODESSA SANTOS MD ? Measurements Intervals ?[place] ? Rate: ? 61 ? P: ?1 VA: ? 140 ?QRS: ?44 QRSD: ? 101 [...] Date: 2014-02-15 Pat Name: ROMEO COELHO Department: [place] [address] Room: [facility] [place] Gender: M News Librarian: [id number] : 1965 Requested By: MAHI ELENA MD Order Number: [id number] Reading MD: ODESSA SANTOS MD Measurements Intervals [place] Rate: 61 P: 1 VA: 140 QRS: 44 QRSD: 101 T: 46 [...] EKG * (ABNORMAL) DIFFERENTIAL (02/14/2014 22:43 EDT) [facility] % Neutrophils 36.5(L) 45.5 - 79.7 % [...] Fi nal Result [facility] [address] [place] [address] * (ABNORMAL) HEMAGRAM (02/14/2014 22:43 EDT) WBC [...] ORDERABLES Fi nal Result Performing Organization Address [facility] de Phone Number [facility] [address] [place] [address] * TROPONIN I (02/14/2014 22:43 EDT) Troponin I (ng/mL) <0.034 <0.034 ng/ml [facility] Blood specimen (specimen) 02/14/2014 22:43 EDT 02/14/2014 22:50 EDT Farhan Alfaro MD CHEMISTRY & BLOOD GAS ORDERABL ES Final Result Performing Organization Address [facility] de Phone Number [facility] [address] [place] [address] * CK MB WITH TOTAL CK (02/14/2014 22:43 EDT) CK 51 0 - 250 U/L [facility] MB <0.22 <4.21 ng/ml [facility] Blood specimen (specimen) 02/14/2014 22:43 EDT 02/14/2014 22:50 EDT us Farhan Alfaro MD CHEMISTRY & BLOOD GAS ORDERABL ES Final Result Performing Organization Address [facility] de Phone Number [facility] [address] [place] [address] * HEMOGLOBIN A1C (02/14/2014 22:43 EDT) Hemoglobin [...] Final Result Performing Organization Address [facility] de Phone Number [facility] [address] [place] [address] * SCREENING GLUCOSE (02/14/2014 22:43 EDT) Glucose, Screening 94 70 - 100 mg/dl [facility] Blood specimen (specimen) 02/14/2014 22:43 EDT 02/14/2014 22:50 EDT us Farhan Alfaro MD CHEMISTRY & BLOOD GAS ORDERABL ES Final Result Performing Organization Address [facility] de Phone Number [facility] [address] [place] [address] * EKG 12-LEAD (02/14/2014 22:28 EDT) 02/14/2014 22:2 8 EDT Narrative FA EKG - 02/15/2014 12:55 EDT ?[facility] ? Test Date: ?2014-02-14 Pat Name: ? ROMEO COELHO ?Department: ?? [facility] 5 ? Room: ? ME507 Gender: ? M ?News Librarian: ?? [id number] : ?1965 ? Requested By: FARHAN ALFARO MD Order Number: [id number] ? Reading MD: ?? ROMEO ART MD ? Measurements Intervals ?[place] ? Rate: ? 60 ? P: ?-7 VA: ? 149 ?QRS: ?31 QRSD: ? 100 [...] Date: 2014-02-14 Pat Name: ROMEO COELHO Department: [place] [address] Room: [facility] Gender: M News Librarian: [id number] : 1965 Requested By: FARHAN ALFARO MD Order Number: [id number] Reading MD: ROMEO ART MD Measurements Intervals [place] Rate: 60 P: -7 VA: 149 QRS: 31 QRSD: 100 T: 35 [...] ORDERABLES Final R esult Performing Organization Address City/[facility] Co de Phone Number [facility] EKG * GLUCOSE, GLUCOMETER (02/14/2014 22:26 EDT) [facility] Signature Glucose, Fingerstick 87 70 - 100 mg/dl [facility] Joint Cutter Machine ID [id number] [facility] Comment:Test Performed by [facility] 02/14/2014 22:2 6 EDT 02/14/2014 22:44 EDT us Mahi Mcginnis MD CHEMISTRY & BLOOD GAS ORDER CARTER Final Result Performing Organization Address City/[facility] Co de Phone Number [facility] [address] [place] [address] documented in this encounter Visit Diagnoses Diagnosis Chest pain- Primary Chest pain, unspecified Chest pain Chest pain, unspecified CAD (coronary artery disease) Coronary atherosclerosis of unspecified type of vessel, [place] or graft Unstable angina (HCC-CMS) Intermediate coronary syndrome S/P coronary artery stent placement Postsurgical percutaneous transluminal coronary angioplasty status NSTEMI (non-ST elevated myocardial infarction) (HCC-CMS) Acute myocardial infarction, subendocardial infarction, episode of care unspecified Unstable angina (HCC-CMS) Intermediate coronary syndrome CAD (coronary artery disease) Coronary atherosclerosis of unspecified type of vessel, [place] or graft documented in this encounter Administered [...] - Comment: wants to wait until after [facility])[id number] (Given - Provider: Gina Mix RN [...] RN - Reason: Other - Comment: s/p [facility]) PRN Medication Order 02/14/2014 02/15/2014 [...] 02/14/2014 documented in this encounter Care Teams Commodities Clerk Relationship Specialty Start Date End Date Sarita Lim MD [address] [place] [id number] PCP - General 12/17/11 documented as of this encounter
[2024-08-22 19:01] LABS: Abs Immature Grans 0.03 10^3/uL (0.0-0.06); Absolute Eosinophil Count 0.39 10^3/uL (0.0-0.7); Absolute Lymphocyte Count 3.41 10^3/uL (1.2-3.4); Absolute Monocyte Count 0.86 10^3/uL (0.1-0.8); Absolute Neutrophil Count 4.51 10^3/uL (1.2-6.7); Basophils % 1.1 %; Eosinophils % 4.2 %; HCT 42.9 % (40.0-50.0); HGB 14.3 g/dL (13.5-17.5); Immature Grans % 0.3 %; Lymphocytes % 36.7 %; MCH 28.7 pg (27.0-33.0); MCHC 33.3 % (32.0-36.0); MCV 86 fL (80-95); MPV 10.6 fL (8.0-11.0); Monocytes % 9.2 %; Neutrophils % 48.5 %; Platelet Count 258 10^3/uL (130-400); RBC 4.98 10^6/uL (4.36-5.78); RDW 13.2 % (11.8-14.1); RDW-SD 41.1 fL
--- NOTE | 2024-08-22 19:02 | DI.RAD_ITS ---
Exam(s) XR PORTABLE CHEST AP EXAM: XR PORTABLE CHEST AP CLINICAL HISTORY: chest pain. TECHNIQUE: 2D digital imaging was performed. COMPARISON: No exams were available for comparison FINDINGS: Single AP portable view. Heart size is upper normal. The mediastinum is not widened. Lungs are clear. No infiltrates nor obvious pleural effusions. Widened right AC joint again noted. IMPRESSION: No acute pulmonary findings on this single AP portable view of the chest. DATA REPOSITORY: RADIATION DOSE DELIVERED:
[2024-08-22 19:12] LABS: PTT Activated 23.6 sec (23.6-32.8); Prothrombin Time 10.4 sec (9.1-11.1)
[2024-08-22 19:27] LABS: ALT 15 U/L (16-63); AST 10 U/L (15-37); Albumin 3.3 g/dL (3.4-5.0); Alkaline Phosphatase 72 U/L (46-116); BUN 12 mg/dL (7-18); Calcium 9.3 mg/dL (8.5-10.1); Chloride 102 mmol/L (98-107); Estimated GFR 87.78 (mL/min/1.73m2); Glucose 106 mg/dL (74-106); Lipase 29 U/L (<78); Magnesium 1.4 mg/dL (1.8-2.4); NT-proBNP 51 pg/mL (<300); Potassium 3.8 mmol/L (3.5-5.1); Sodium 137 mmol/L (136-145)
[2024-08-22 19:28] LABS: Troponin I < 4 ng/L (<or=76)
--- NOTE | 2024-08-22 20:06 | DI.VRAD_ITS ---
PROCEDURE INFORMATION: Exam: XR Chest Exam date and time: 08/22/2024 7:02 PM Age: 59 years old Clinical indication: Other: Chest pain TECHNIQUE: Imaging protocol: Radiologic exam of the chest. Views: 1 view. Other technique: Portable exam. COMPARISON: CR XR CHEST 1V IN DI DEPT 08/05/2024 4:44 PM. Report not available. FINDINGS: Lungs: Unremarkable. No consolidation. Pleural spaces: Unremarkable. No pleural effusion. No pneumothorax. Heart/Mediastinum: Unremarkable. No cardiomegaly. Bones/joints: Unremarkable. IMPRESSION: No evidence for acute abnormality in the chest. Dictated and Authenticated by: Savanah Manzano MD. [facility]ing[facility] Dominique Drake MD
--- NOTE | 2024-08-22 20:10 | ED.GENADUL_ITS ---
Discharge Plan Disposition Patient Disposition: Home Condition: Stable Discharge Details Clinical Impression: Chest pain Primary Care Provider: Coni Lim V ED Provider: Emerald Fox Home Meds and New Rx's Prescriptions: No Action ranolazine 500 mg tablet extended release 12 hr 500 mg PO BID Qty: 60 3RF losartan 25 mg Tablet 12.5 mg PO DAILY duloxetine [Cymbalta] 60 mg Capsule,Delayed Release(Dr/Ec) 60 mg PO BID hydroxyzine pamoate 50 mg capsule 25 mg PO Q4H PRN Qty: 90 Patient Comments: 08/01/15 not recently Rx Instructions: prn headache aspirin [Adult Aspirin Regimen] 81 mg tablet,delayed release (DR/EC) 81 mg PO DAILY sucralfate [Carafate] 1 gram tablet 1 gm PO QACHS colchicine 0.6 mg tablet 0.6 mg PO BID PRN (Reason: gout flare) Patient Comments: 08/01/15 not using docusate sodium [Colace] 100 mg capsule 100 mg PO BID PRN polyethylene glycol 3350 [Miralax] 17 gram/dose powder 17 gm PO DAILY PRN glucagon 3 mg/actuation spray,non-aerosol 3 mg intranasal ONCE Rx Instructions: as a single dose budesonide-formoterol 80-4.5 mcg/actuation HFA aerosol inhaler 1 inh inhalation BID nitroglycerin [Nitrostat] 0.4 MG tablet, sublingual 0.4 mg Sublingual PRN PRN cyclobenzaprine 10 MG tablet 10 mg PO HS PRN bupropion HCl 150 MG tablet extended release 12 hr 150 mg PO QPM Patient Comments: provider stopped nighttime dose. pantoprazole 40 MG tablet,delayed release (DR/EC) 40 mg PO BID metformin 1,000 mg tablet extended release 24hr 1,000 mg PO BID Qty: 60 0RF acetaminophen 500 mg Tablet 1,000 mg PO Q8H Qty: 30 0RF albuterol sulfate [Ventolin HFA] 90 mcg/actuation Hfa Aerosol Inhaler 2 puff inhalation Q4H PRN PRN (Reason: Wheezing) Qty: 6.7 0RF gemfibrozil 600 mg Tablet 600 mg PO BID Qty: 20 0RF Rx Instructions: Please, discuss with PCP during f/u metoprolol succinate 100 mg Tablet Extended Release 24 Hr 200 mg PO DAILY Qty: 10 0RF pramipexole 0.5 mg Tablet 1 mg PO HS Qty: 20 0RF pramipexole 0.5 mg Tablet 0.5 mg PO DAILY Qty: 10 0RF rosuvastatin 10 mg Tablet 20 mg PO HS Qty: 10 0RF topiramate 25 mg tablet See Rx Instructions PO BID Qty: 30 0RF Rx Instructions: 25mg AM and 50mg PM orally twice a day; 25 mg in AM, 50 mg PM. triamcinolone acetonide 0.1 % cream 1 applic TOPICAL BID bupropion HCl 300 mg tablet extended release 24 hr 300 mg PO QAM isosorbide mononitrate 30 mg tablet extended release 24 hr 60 mg PO DAILY Patient Comments: TAKE ONE TABLET BY MOUTH EVERY MORNING gabapentin 800 mg tablet 400 mg PO BID insulin glargine [Lantus Solostar U-100 Insulin] 100 unit/mL (3 mL) Insulin Pen 26 unit subcut HS ondansetron 4 mg tablet,disintegrating 4 mg PO Q8H PRN (Reason: nausea and vomiting) Qty: 30 0RF Discharge Instructions Instructions: Chest Pain, Adult ED Additional Instructions: Your troponin blood work is negative and your EKG is unchanged. This workup means that the symptoms are unlikely coming from your heart. Recommend Motrin and Tylenol as needed for discomfort. A follow-up message has been sent to PCP to schedule urgent follow-up and outpatient stress testing. Return to the emergency department with persistent or worsening symptoms Discharge Data Discharge Date/Time-TO BE ENTERED AT DEPARTURE: 08/22/24 20:56 HPI General Date/Time Provider Initiated Documentation: 08/22/24 18:16 . Limitations to Documentation: no limitations . Information obtained by: patient and EMS . HPI Narrative: 59-year-old gentleman with past medical history of hypertension, diabetes, TIA, CAD with 5 stents presents for evaluation of chest pain. He reports that he has not been feeling well for a few days. He was evaluated at his PCPs office 3 days ago with a normal workup. He reports that he has left-sided chest pain radiating to his jaw. He was given aspirin by EMS. Nitroglycerin was not given because of his blood pressure. He did not take his nitroglycerin at home because his blood pressure was low. He reports feeling generally unwell. Denies any fever, nausea vomiting or diarrhea. No known sick contacts. Denies any cough or shortness of breath. Related Data Home Medications ?Medication ?Instructions ?Recorded ?Confirmed cyclobenzaprine 10 mg tablet 10 mg PO HS PRN 12/31/12 08/22/24 nitroglycerin 0.4 mg sublingual 0.4 mg sublingual PRN PRN 12/31/12 08/22/24 tablet (Nitrostat) bupropion HCl 150 mg tablet,12 hr 150 mg PO QPM 02/14/14 08/22/24 sustained-release pantoprazole 40 mg tablet,delayed 40 mg PO BID 02/14/14 08/22/24 release aspirin 81 mg tablet,delayed 81 mg PO DAILY 12/26/19 08/22/24 release (Adult Aspirin Regimen) hydroxyzine pamoate 50 mg capsule 25 mg PO Q4H PRN #90 tab-caps 12/26/19 08/22/24 sucralfate 1 gram tablet (Carafate) 1 gm PO QACHS 12/26/19 08/22/24 colchicine 0.6 mg tablet 0.6 mg PO BID PRN gout flare 11/23/20 08/22/24 docusate sodium 100 mg capsule 100 mg PO BID PRN 11/23/20 08/22/24 (Colace) polyethylene glycol 3350 17 17 gm PO DAILY PRN 11/23/20 08/22/24 gram/dose oral powder (Miralax) ranolazine 500 mg tablet,extended 500 mg PO BID #60 tabs 11/23/20 08/22/24 release,12 hr duloxetine 60 mg capsule,delayed 60 mg PO BID 12/24/20 08/22/24 release (Cymbalta) losartan 25 mg tablet 12.5 mg PO DAILY 12/24/20 08/22/24 metformin 1,000 mg tablet,extended 1,000 mg PO BID #60 tabs 10/24/21 08/22/24 release 24hr (osmotic) budesonide-formoterol HFA 80 1 inh inhalation BID 06/04/23 08/22/24 mcg-4.5 mcg/actuation aerosol inhaler glucagon 3 mg/actuation nasal spray 3 mg intranasal ONCE 06/04/23 08/22/24 acetaminophen 500 mg tablet 1,000 mg (2 x 500 mg) PO Q8H #30 05/03/24 08/22/24 tabs albuterol sulfate 90 mcg/actuation 2 puff inhalation Q4H PRN PRN 05/03/24 08/22/24 aerosol inhaler (Ventolin HFA) Wheezing #6.7 grams gemfibrozil 600 mg tablet 600 mg PO BID #20 tabs 05/03/24 08/22/24 metoprolol succinate 100 mg 200 mg (2 x 100 mg) PO DAILY #10 05/03/24 08/22/24 tablet,extended release 24 hr tabs pramipexole 0.5 mg tablet 0.5 mg PO DAILY #10 tabs 05/03/24 08/22/24 pramipexole 0.5 mg tablet 1 mg (2 x 0.5 mg) PO HS #20 tabs 05/03/24 08/22/24 rosuvastatin 10 mg tablet 20 mg (2 x 10 mg) PO HS #10 tabs 05/03/24 08/22/24 topiramate 25 mg tablet See Rx Instructions PO BID #30 tabs 05/03/24 08/22/24 bupropion HCl 300 mg 24 hr tablet, 300 mg PO QAM 05/17/24 08/22/24 extended release gabapentin 800 mg tablet 400 mg PO BID 05/17/24 08/22/24 insulin glargine 100 unit/mL (3 26 unit subcut HS 05/17/24 08/22/24 mL) subcutaneous pen (Lantus Solostar U-100 Insulin) isosorbide mononitrate 30 mg 60 mg PO DAILY 05/17/24 08/22/24 tablet,extended release 24 hr ondansetron 4 mg disintegrating 4 mg PO Q8H PRN nausea and 05/17/24 08/22/24 tablet vomiting #30 tabs triamcinolone acetonide 0.1 % 1 applic topical BID 05/17/24 08/22/24 topical cream Previous Rx's ?Medication ?Instructions ?Recorded ranolazine 500 mg tablet,extended 500 mg PO BID #60 tabs 11/23/20 release,12 hr metformin 1,000 mg tablet,extended 1,000 mg PO BID #60 tabs 10/24/21 release 24hr (osmotic) acetaminophen 500 mg tablet 1,000 mg (2 x 500 mg) PO Q8H #30 05/03/24 tabs albuterol sulfate 90 mcg/actuation 2 puff inhalation Q4H PRN PRN 05/03/24 aerosol inhaler (Ventolin HFA) Wheezing #6.7 grams gemfibrozil 600 mg tablet 600 mg PO BID #20 tabs 05/03/24 metoprolol succinate 100 mg 200 mg (2 x 100 mg) PO DAILY #10 05/03/24 tablet,extended release 24 hr tabs pramipexole 0.5 mg tablet 0.5 mg PO DAILY #10 tabs 05/03/24 pramipexole 0.5 mg tablet 1 mg (2 x 0.5 mg) PO HS #20 tabs 05/03/24 rosuvastatin 10 mg tablet 20 mg (2 x 10 mg) PO HS #10 tabs 05/03/24 topiramate 25 mg tablet See Rx Instructions PO BID #30 tabs 05/03/24 ondansetron 4 mg disintegrating 4 mg PO Q8H PRN nausea and 05/17/24 tablet vomiting #30 tabs Allergies Allergy/AdvReac Type Severity Reaction Status Date / Time thallium-201 (Thallium-201) Allergy Severe Pt went to Verified 08/22/24 18:19 [facility] ciprofloxacin Allergy Intermediate Unknown Verified 08/22/24 18:19 lisinopril AdvReac cough Verified 08/22/24 18:19 Paper tape Allergy Intermediate rash Uncoded 08/22/24 18:19 General Stated Complaint: Chest Pain NANCY: 3 Exam Narrative Exam Narrative: Review of Systems: All systems reviewed & are unremarkable except as noted in HPI and below Well-developed, no acute distress NCAT PERRL, normal conjunctiva RRR no murmur Unlabored respiratory effort clear bilaterally Nondistended abdomen soft nontender Extremities w/o edema no focal neurologic deficits flat affect Course Vital Signs Vital signs: Vital Signs Temperature 36.2 C L 08/22/24 18:08 Pulse 71 08/22/24 18:08 Respiratory Rate 12 08/22/24 18:08 Blood Pressure 94/65 L 08/22/24 18:08 Pulse Oximetry 97 08/22/24 18:08 Temperature 36.2 C L 08/22/24 18:08 Temperature Source Temporal Artery Scan 08/22/24 18:08 Pulse 72 08/22/24 19:51 Pulse 73 08/22/24 19:51 Respiratory Rate 18 08/22/24 19:51 Respiratory Effort Normal 08/22/24 18:27 Respiratory Depth Normal 08/22/24 18:27 Respiratory Pattern Normal 08/22/24 18:27 Blood Pressure 95/63 L 08/22/24 19:51 Blood Pressure Mean 70 08/22/24 19:51 Blood Pressure Position Sitting 08/22/24 18:08 Pulse Oximetry 95 08/22/24 19:51 Oxygen Delivery Method Room Air 08/22/24 18:08 Oxygen Flow Rate 0 08/22/24 18:08 Pain Level 6 08/22/24 18:08 Lab/Test Results Lab/Test Results: Laboratory Tests Range/Units 08/22/24 18:52 WBC (4.4-10.8) 10^3/uL 9.30 RBC (4.36-5.78) 10^6/uL 4.98 Hgb (13.5-17.5) g/dL 14.3 Hct (40.0-50.0) % 42.9 MCV (80-95) fL 86 MCH (27.0-33.0) pg 28.7 MCHC (32.0-36.0) % 33.3 RDW (11.8-14.1) % 13.2 Plt Count (130-400) 10^3/uL 258 MPV (8.0-11.0) fL 10.6 Immature Gran % % 0.3 Neutrophils % % 48.5 Lymphocytes % % 36.7 Monocytes % % 9.2 Eosinophils % % 4.2 Basophils % % 1.1 Nucleated RBC % (0.0-0.3) % 0.0 Absolute Neutrophils (1.2-6.7) 10^3/uL 4.51 Absolute Lymphocytes (1.2-3.4) 10^3/uL 3.41 H Absolute Monocytes (0.1-0.8) 10^3/uL 0.86 H Absolute Eosinophils (0.0-0.7) 10^3/uL 0.39 Absolute Basophils (0.0-0.2) 10^3/uL 0.10 PT (9.1-11.1) sec 10.4 INR (0.9-1.1) 1.0 APTT (23.6-32.8) sec 23.6 Sodium (136-145) mmol/L 137 Potassium (3.5-5.1) mmol/L 3.8 Chloride (98-107) mmol/L 102 Carbon Dioxide (21.0-32.0) mmol/L 26.0 Anion Gap (3-11) mmol/L 9.0 BUN (7-18) mg/dL 12 Creatinine (0.70-1.30) mg/dL 1.0 Est GFR (CKD-EPI 2020) (mL/min/1.73m2) 87.78 Glucose (74-106) mg/dL 106 Calcium (8.5-10.1) mg/dL 9.3 Magnesium (1.8-2.4) mg/dL 1.4 L Total Bilirubin (0.2-1.0) mg/dL 0.30 AST (15-37) U/L 10 L ALT (16-63) U/L 15 L Alkaline Phosphatase (46-116) U/L 72 Troponin I (<or=76) ng/L < 4 NT-Pro-B Natriuret Pep (<300) pg/mL 51 Total Protein (6.4-8.2) g/dL 7.0 Albumin (3.4-5.0) g/dL 3.3 L Lipase (<78) U/L 29 Medical Decision Making Emergent evaluation of chest pain. Patient has significant risk factors for ACS. Initial differential includes ACS, pneumonia, viral illness. Patient is very nonspecific about his symptoms of not feeling well and apparently had a recent PCP evaluation. He reports that his last stent was about 10 years ago, he does not know when his last angio or stress test was. EKG reviewed and independently interpreted: Sinus 73 normal axis no acute ischemic changes. The patient was given aspirin by EMS. His blood pressure is low, but on review of his chart, his blood pressure is never above 105 systolic. Lab work was obtained and reviewed. White blood cell count normal, no anemia. He has a slightly low magnesium and was given oral replacement and encouraged to continue eating foods high in magnesium. No significant electrolyte derangement. Renal and liver function within normal limits. BNP is not elevated patient has had 2 serial troponins both undetectable. Lipase is not elevated. Chest x-ray reviewed and independently interpreted: There is no acute consolidative process pulmonary edema or pleural effusion. At this time there does not appear to be any emergent process. I do not feel that the patient would benefit from hospitalization. He is recommended to follow-up closely with his PCP for reevaluation of his generalized unwell feeling. And I do recommend an outpatient stress test. Strict return precautions advised. Given his risk factor if his chest pain persists, he sherron uld return Quality:SDOH Health Related Social Needs: Health related social needs transportation insecurity( Z59.82) [facility] All Active Problems Chest pain (Acute) Neuropathy (Acute) Syncope (Chronic) SOB (shortness of breath) (Acute) Episode of unresponsiveness (Acute) History of PSVT (paroxysmal supraventricular tachycardia) (Acute) Hyperammonemia (Acute) Hyperglycemia (Acute) Thyroid nodule (Acute) Hyperplastic colon polyp (Acute) Tubular adenoma of colon (Acute) CAD (coronary artery disease) (Chronic) a. [place] [facility] b. Restenosis of LAD and two more stents to LAD at [facility] 01/2014 c. 50% proximal RCA lesion d. Recurrent angina on Ranolazine e. Normal [place] scan 08/2014 Tobacco abuse (Chronic) History of TIA (transient ischemic attack) (Chronic) Obesity (Chronic) Diabetes mellitus, type II (Chronic) Hypertension (Chronic) Hyperlipidemia (Chronic) Atherosclerotic cardiovascular disease (Acute) Atypical angina (Acute) Screening for colon cancer (Acute) Encounter for colorectal cancer screening (Acute) Medical History Encephalopathy 04/08/23 with syncope, [facility] ER intubated to [facility] d/c 04/09/23 [facility] Hemiplegic migraine (03/21/15) Migraine headache with aura (03/21/15) Medication overuse headache (03/21/15) Knee pain Diabetes mellitus Ketoacidosis due to secondary diabetes mellitus Low back pain Asthma COPD (chronic obstructive pulmonary disease) Abscess of right groin Dental infection Discharge planning issues Hypomagnesemia Ileitis Hematuria Smoker Myocardial infarction, inferior wall 2012 Hemiplegic migraine With intractable migraine, so stated, without mention of status migrainosus Postural lightheadedness Gastropathy Duodenitis Left cervical radiculopathy Gastroparesis diabeticorum RLS (restless legs syndrome) Tachycardia, paroxysmal Myalgia Leg pain, right Family history of colon cancer Reaction, situational Headache Acute diarrhea Abdominal pain Hypotensive episode Diverticulitis Peripheral neuropathy Palpitations Chronic pain Knee pain, left Hip pain, right Cervicalgia Shoulder pain, left Depression H/O: gout GERD (gastroesophageal reflux disease) Fibromyalgia Thyroid nodule Cholelithiasis a. cholecystectomy Surgical History Hx of discectomy History of arthroscopic surgery of shoulder Hx of tonsillectomy History of cholecystectomy History of knee surgery History of colonoscopy (~09/2021) History of coronary artery stent placement H/O surgical procedure a. cath and stents b. cholecystectomy c. back surgery Family History Other Cancer Colon cancer Social History Smoking/Tobacco Use Status: Current every day Tobacco Type: cigarettes Smoking risk assessment performed?: Yes Alcohol Intake: former Drug use: Daily Substance use type: marijuana Details: 2-3 joints/day Household members: spouse Housing: house Number of Children: 2 current occupation: Disabled Current gender identity: male What type of physical activity do you participate in: walking, independent ambulation and additional Details: work at home (outside work) Do you feel safe at home: Yes Do you feel safe in your relationship?: Yes
[2024-08-22 20:27] LABS: Troponin I < 4 ng/L (<or=76)
[2024-08-22] MEDS: Magnesium Oxide 400 MG TAB PO (20:40)
== END 2024-08-22 20:56 | disposition home or self-care (01) ==
PROVIDERS: Emergency Provider Emergency Medicine; PCP Family Medicine
DX: R07.9 Chest pain, unspecified (principal); Z86.73 Personal history of transient ischemic attack (TIA), and cerebral infarction without residual deficits; E11.9 Type 2 diabetes mellitus without complications; F17.210 Nicotine dependence, cigarettes, uncomplicated; E83.42 Hypomagnesemia
CPT/HCPCS: 80053; 83690; 93005; 99284; 71045; 83735; 83880; 84484; 85025; 85610; 85730; 93010

== ENCOUNTER 2024-08-30 08:13 | Outpatient (CLI) | payer MEDICARE, MEDICAID, SELFPAY ==
--- NOTE | 2024-08-30 08:00 | RT.EKG_ITS ---
APPROVED REPORT Exam: Resting ECG Reason for Exam: CAD Patient Location: O HR:78 bpm ECG Measurements Heart Rate 78 AXIS [place] 149 P 23 QRSd 87 QRS 8 QT 347 T 35 QTc 396 Conclusion Sinus rhythm...normal P axis, V-rate 50- 99 early transition...QRS area>0 in V2
== END 2024-08-30 08:14 | disposition home or self-care (01) ==
LOC: DI.CARD 08:22
PROVIDERS: PCP Family Medicine; Visit Provider Internal Medicine Cardiovascular Disease
DX: I25.10 Atherosclerotic heart disease of native coronary artery without angina pectoris (principal); Z86.79 Personal history of other diseases of the circulatory system
CPT/HCPCS: 93010

== ENCOUNTER → 2024-08-30 09:48 | Outpatient (BNVA) | payer MEDICARE, MEDICAID, SELFPAY | PROVIDERS: PCP Family Medicine; Referring Provider Family Medicine; Visit Provider Internal Medicine Cardiovascular Disease | DX: I25.10 Atherosclerotic heart disease of native coronary artery without angina pectoris (principal); R07.89 Other chest pain | CPT/HCPCS: 93005; 99213 ==

== ENCOUNTER 2024-09-08 00:06 | Outpatient (CLI) | payer MEDICARE, MEDICAID, SELFPAY ==
--- NOTE | 2024-09-08 08:15 | DI.NM_ITS ---
APPROVED REPORT Exam: Pharmacologic Patient Location: Out-Patient Room/Bed: Stress Nurse: Gordon Peace RN Ordering Provider:MOE GUTIERREZ, Contact Number: [phone] BMI: 35.15 Baseline Rhythm: Sinus Rhythm. Indications: Chest Pain; CAD. Medical History Medical History: Encephalopathy; Hemiplegic Migraine; Diabetes Mellitus; Asthma; COPD; [place] (2012); [place]; Postural Lightheadedness; Restless Leg Syndrome; Paroxsymal Tachycardia; PSVT; Depression; GERD; Fibromyalgia; Gastroparesis; Diabeticorum; Peripheral Neuropathy; CAD; TIA; Obesity; HLD; HTN; Unsta ble Angina. Cardiac Medications: Albuterol Sulfate; Aspirin; Budesonide-Formoterol HFA; Bupropion; Colchicine; Cy clobenzaprine; Gabapentin; Gemfibrizil; Hydroxyzine; Imdur; Losartan; Metformin; Nitroglycerin; Prami pexole; Pantoprazole; Ondansetron; Ranolazine; Rosuvastatin; Sucralfate; Topiramate; Metoprolol Succi estella; Insulin Glargine (Lantus). Allergies: Thallium; Ciprofloxacin; Lisinopril; Paper Tape. Cardiac Risk Factors: Family Hx; HLD; HTN; CVD; Diabetes Mellitus; Asthma; COPD; Smoker; Obesity. Previous Cardiac Procedures: Coronary Artery Stent Placement x2; Cardiac Cath (2020). Pretest Chest Pain Characteristics: Pt. c/o 4/10, dull, continuous, sternal chest pressure that he st ates started approximately one and a half hours ago. Exercise History: Sedentary. Physical Disabilities: Difficulty with ambulation. Lung Sounds: Fine crackles noted in pt.'s left mid and lower lobes posteriorly; clear bilaterally thr oughout, anterior and posterior, otherwise. Heart Sounds: S1 and S2 auscultated. Stress Test Details Test: Pharmacologic stress testing performed using 0.4 mg of regadenoson per 5 mL given IV over 10 s econds. Reason for pharmacologic stress test: physical limitation. Nuclear Acquisition: Rest Tc-99m/Stress Tc-99m 1 day Rest Isotope: Tc-99m Sestamibi. Dose: 10.5 Date: 09/08/2024 Injection Time: 0930 Stress Isotope: Tc-99m Sestamibi. Dose: 32.8 Date: 09/08/2024 Injection Time: 1100 HR Resting HR Supine: 78 bpm Max Heart Rate (APMHR): 163 bpm Target HR (85% APMHR): 139 bpm Max HR Achieved: 92 bpm % of APMHR: 56 Recovery HR: 86 bpm BP Resting BP Supine: 110/76 mmHg Max BP: 120/78 mmHg Recovery BP: 116/72 mmHg ECG Resting ECG: Sinus Rhythm. Ectopy: None. Stress ECG: Sinus Rhythm. ST Change: Nondiagnostic low heart rate. Arrhythmia: None. Recovery ECG: Sinus Rhythm. Recovery ST Change: Nondiagnostic low heart rate. Recovery Arrhythmia: None. Clinical Stress Symptoms: Pt. c/o moderate to severe (6-9/10), sternal, chest pressure and mild shortness of b reath. Angina Score: Non-Limiting Rate Pressure Product: 21601 Stress ECG Conclusion 1. Resting electrocardiogram was normal 2. Patient underwent testing using pharmacologic stress with regadenoson 3. Peak heart rate achieved was 56% of maximal predicted for age 4. Electrocardiographic portion of the test was nondiagnostic 5. See MPI report Critical Notification Physician Notified Date: 09/08/2024 Time: 1105 Physician Name: Moe Gutierrez MD Response Time: 1106 Stress Test Summary STAGE HR BP SpO2 Symptoms NOTES Supine 78 110/76 93 Pt. c/o 4/10, dull, continuous, sternal chest pressure that he states starte d approximately one and a half hours ago. 1 min post Lexiscan injection 72 96/68 94 Pt. c/o 9/10, dull, continuous, sternal chest pressure an d mild shortness of breath. 3 min post Lexiscan injection 90 120/78 98 Pt. c/o 6/10, dull, continuous, sternal chest pressure a nd mild shortness of breath. 6 min post Lexiscan injection 86 116/72 95 Pt. c/o 4-5/10, dull, continuous, sternal chest pressure and states that his shortness of breath has resolved back to baseline. Prior to the stress test, pt. c/o 4/10, dull, continuous, sternal chest pressure that he states start ed approximately one and a half hours ago. Pt. was also noted to have fine crackles in his left mid a nd lower lobes posteriorly. Dr. Gutierrez was notified. Per Dr. Gutierrez, it was safe to proceed with a laying lexiscan. Immediately post lexiscan injection, pt. c/o 9/10, dull, continuous, sternal chest pressur e and mild shortness of breath. Three minutes post lexiscan injection, pt. c/o 6/10, dull, continuous , sternal chest pressure and mild shortness of breath. Six minutes post lexiscan injection, pt. c/o 4 -5/10, dull, continuous, sternal chest pressure and states that his shortness of breath has resolved back to baseline. Pt. arrived with 4/10, dull, continuous, sternal chest pressure. Nursing staff felt it was safe for the pt. to proceed to post stress imaging. Pt. ambulated from the Stress Lab to [facility]año ith assistance from the RN. Pt. was conversing pleasantly with nursing staff upon leaving the Stress Lab and was in no apparent distress. MPI Conclusion Myocardial perfusion is normal. There is no ischemia or evidence of prior infarction Calculated ejection fraction is 52%. Wall motion is normal
[2024-09-08] MEDS: Regadenoson 0.4 MG/5 ML SYR IVP (10:59)
== END 2024-09-08 00:26 ==
PROVIDERS: PCP Family Medicine; Visit Provider Internal Medicine Cardiovascular Disease
DX: I25.10 Atherosclerotic heart disease of native coronary artery without angina pectoris (principal)
CPT/HCPCS: 78452; 93016; 93018; 93017; J2785

== ENCOUNTER 2024-11-03 02:39 | Outpatient (CLI) | payer MEDICARE, MEDICAID, SELFPAY ==
--- NOTE | 2024-11-03 21:16 | PDOC.EEG_ITS ---
Neurology EEG EEG: [facility] Department of Neurology EEG REPORT Date of Recordin11/03/24 Interpreting Physician: Dr. Edel Negron PCP/Referring Provider: Dr. Coni Lim Reason for study: Romeo Coe is a 59 year-old with 3 episodes of syncope vs seizure. Current Medications: Home Medications ?Medication ?Instructions ?Recorded ?Confirmed ?Type cyclobenzaprine 10 mg tablet 10 mg PO HS PRN 12/31/12 08/30/24 History nitroglycerin 0.4 mg sublingual 0.4 mg sublingual PRN PRN 12/31/12 08/30/24 History tablet (Nitrostat) bupropion HCl 150 mg tablet,12 hr 150 mg PO QPM 02/14/14 08/30/24 History sustained-release pantoprazole 40 mg tablet,delayed 40 mg PO BID 02/14/14 08/30/24 History release aspirin 81 mg tablet,delayed 81 mg PO DAILY 12/26/19 08/30/24 History release (Adult Aspirin Regimen) hydroxyzine pamoate 50 mg capsule 25 mg PO Q4H PRN #90 tab-caps 12/26/19 08/30/24 History sucralfate 1 gram tablet (Carafate) 1 gm PO QACHS 12/26/19 08/30/24 History colchicine 0.6 mg tablet 0.6 mg PO BID PRN gout flare 11/23/20 08/30/24 History docusate sodium 100 mg capsule 100 mg PO BID PRN 11/23/20 08/30/24 History (Colace) polyethylene glycol 3350 17 17 gm PO DAILY PRN 11/23/20 08/30/24 History gram/dose oral powder (Miralax) ranolazine 500 mg tablet,extended 500 mg PO BID #60 tabs 11/23/20 08/30/24 Rx release,12 hr duloxetine 60 mg capsule,delayed 60 mg PO BID 12/24/20 08/30/24 History release (Cymbalta) losartan 25 mg tablet 12.5 mg PO DAILY 12/24/20 08/30/24 History metformin 1,000 mg tablet,extended 1,000 mg PO BID #60 tabs 10/24/21 08/30/24 Rx release 24hr (osmotic) budesonide-formoterol HFA 80 1 inh inhalation BID 06/04/23 08/30/24 History mcg-4.5 mcg/actuation aerosol inhaler glucagon 3 mg/actuation nasal spray 3 mg intranasal ONCE 06/04/23 08/30/24 History acetaminophen 500 mg tablet 1,000 mg (2 x 500 mg) PO Q8H #30 05/03/24 08/30/24 Rx tabs albuterol sulfate 90 mcg/actuation 2 puff inhalation Q4H PRN PRN 05/03/24 08/30/24 Rx aerosol inhaler (Ventolin HFA) Wheezing #6.7 grams gemfibrozil 600 mg tablet 600 mg PO BID #20 tabs 05/03/24 08/30/24 Rx metoprolol succinate 100 mg 200 mg (2 x 100 mg) PO DAILY #10 05/03/24 08/22/24 Rx tablet,extended release 24 hr tabs pramipexole 0.5 mg tablet 0.5 mg PO DAILY #10 tabs 05/03/24 08/30/24 Rx pramipexole 0.5 mg tablet 1 mg (2 x 0.5 mg) PO HS #20 tabs 05/03/24 08/30/24 Rx rosuvastatin 10 mg tablet 20 mg (2 x 10 mg) PO HS #10 tabs 05/03/24 08/30/24 Rx topiramate 25 mg tablet See Rx Instructions PO BID #30 tabs 05/03/24 08/30/24 Rx bupropion HCl 300 mg 24 hr tablet, 300 mg PO QAM 05/17/24 08/30/24 History extended release gabapentin 800 mg tablet 400 mg PO BID 05/17/24 08/30/24 History insulin glargine 100 unit/mL (3 26 unit subcut HS 05/17/24 08/30/24 History mL) subcutaneous pen (Lantus Solostar U-100 Insulin) isosorbide mononitrate 30 mg 60 mg PO DAILY 05/17/24 08/30/24 History tablet,extended release 24 hr ondansetron 4 mg disintegrating 4 mg PO Q8H PRN nausea and 05/17/24 08/30/24 Rx tablet vomiting #30 tabs triamcinolone acetonide 0.1 % 1 applic topical BID 05/17/24 08/30/24 History topical cream METHODS: A 21 channel digitized electroencephalogram was performed in the [facility]. The 10/20 international system of electrode placement was used and bipolar and referential electrode montages were recorded. In addition to EEG the patient was monitored for EKG and lateral/vertical eye movements. Activation procedures of photic stimulation and hyperventilation were performed if applicable. Video was used during activation procedures and during events where applicable. The duration of the recording was 30 minutes. DESCRIPTION OF EEG: The patient was noted to be awake, drowsy, and asleep during the recording. During maximal wakefulness a 9-Hz posterior background rhythm was present which was well-modulated, symmetrical, reactive to eye opening, and of moderate voltage. With eye opening the background activity changed to a low voltage mixture of alpha, beta, and occasional theta range frequencies. Faster frequencies were present in the bilateral anterior head regions. There was a normal anterior-posterior voltage gradient. During drowsiness, there was attenuation of the posterior dominant background rhythm and vertex waves. Stage II sleep was present with symmetrical sleep spindles, K-complexes, and vertex waves. Activating Procedures: Photic stimulation was performed which produced no posterior driving response. Hyperventilation was not performed. EKG: EKG revealed normal sinus rhythm. INTERPRETATION: This EEG is normal during the awake and sleep states as well as during photic s timulation. PRIOR EEG: none CLINICAL CORRELATION: No focal regions of cerebral dysfunction or epileptiform activity was present. Epilepsy remains a clinical diagnosis and a normal EEG does not rule out epilepsy. Clinical correlation is advised. Edel Negron MD Date of service: 11/03/24
== END 2024-11-03 02:40 | disposition home or self-care (01) ==
LOC: RT 02:39
PROVIDERS: PCP Family Medicine; Visit Provider Family Medicine
DX: R55 Syncope and collapse (principal)
CPT/HCPCS: 95819

== ENCOUNTER → 2024-11-04 09:21 | Outpatient (BNVA) | payer MEDICARE, MEDICAID, SELFPAY | PROVIDERS: PCP Family Medicine; Referring Provider Family Medicine; Visit Provider Psychiatry & Neurology Neurology ==

== ENCOUNTER 2025-03-01 08:42 | Outpatient (CLI) | payer MEDICARE, MEDICAID, SELFPAY ==
--- NOTE | 2025-03-01 08:30 | RT.EKG_ITS ---
APPROVED REPORT Exam: Resting ECG Reason for Exam: chest pain Patient Location: O HR:76 bpm ECG Measurements Heart Rate 76 AXIS SC 154 P 49 QRSd 85 QRS 30 QT 349 T 112 QTc 393 Conclusion Sinus rhythm...normal P axis, V-rate 50- [address] elevation, inferior leads...ST >0.06mV, II III aVF
== END 2025-03-01 08:43 | disposition home or self-care (01) ==
LOC: DI.CARD 08:42
PROVIDERS: PCP Family Medicine; Visit Provider Registered Nurse
DX: I25.10 Atherosclerotic heart disease of native coronary artery without angina pectoris (principal)
CPT/HCPCS: 93010

== ENCOUNTER → 2025-03-01 09:37 | Outpatient (BNVA) | payer MEDICARE, MEDICAID, SELFPAY | PROVIDERS: PCP Family Medicine; Referring Provider Family Medicine; Visit Provider Registered Nurse | DX: I25.10 Atherosclerotic heart disease of native coronary artery without angina pectoris (principal); Z95.5 Presence of coronary angioplasty implant and graft; Z79.899 Other long term (current) drug therapy; Z79.02 Long term (current) use of antithrombotics/antiplatelets | CPT/HCPCS: 99214; 93005 ==

== ENCOUNTER 2025-03-01 10:34 | Outpatient (CLI) | payer MEDICARE, MEDICAID, SELFPAY ==
[2025-03-01 10:57] LABS: HCT 42.0 % (40.0-50.0); HGB 13.9 g/dL (13.5-17.5); MCH 28.0 pg (27.0-33.0); MCHC 33.1 % (32.0-36.0); MCV 85 fL (80-95); MPV 10.3 fL (8.0-11.0); Platelet Count 239 10^3/uL (130-400); RBC 4.97 10^6/uL (4.36-5.78); RDW 14.0 % (11.8-14.1); RDW-SD 43.4 fL; WBC 5.92 10^3/uL (4.4-10.8)
[2025-03-01 11:17] LABS: INR 1.0 (0.9-1.1); PTT Activated 23.8 sec (20.6-30.2); Prothrombin Time 10.1 sec (9.1-11.1)
[2025-03-01 11:49] LABS: Anion Gap 11.5 mmol/L (3-11); BUN 15 mg/dL (7-18); CO2 22.5 mmol/L (21.0-32.0); Calcium 9.5 mg/dL (8.5-10.1); Chloride 100 mmol/L (98-107); Estimated GFR 99.62 (mL/min/1.73m2); Glucose 438 mg/dL (74-106); Potassium 4.8 mmol/L (3.5-5.1); Sodium 134 mmol/L (136-145)
== END 2025-03-01 10:35 | disposition home or self-care (01) ==
LOC: LBO 10:34
PROVIDERS: PCP Family Medicine; Visit Provider Registered Nurse
DX: I25.10 Atherosclerotic heart disease of native coronary artery without angina pectoris (principal)
CPT/HCPCS: 36415; 80048; 85027; 85610; 85730

== ENCOUNTER 2025-03-10 00:22 | Outpatient (CLI) | payer MEDICARE, SELFPAY ==
--- NOTE | 2025-03-10 | DI.CTLCSR_ITS ---
Exam(s) CT CHEST LUNG CANCER SCREEN EXAM: CT CHEST LUNG CANCER SCREEN CLINICAL HISTORY: Nicotine dependence, smoker F17.210. TECHNIQUE: Imaging Protocol: Low Dose Technique CONTRAST MATERIAL: None COMPARISON: CT CT CHEST/ABD/PEL W from 04/07/2023 FINDINGS: CHEST: LUNGS: Small benign-appearing right lung nodules are unchanged from CT scan of March 2023. No new focal right lung findings. Small calcified granuloma in the left lung again noted. No new significant left lung findings. Some mild atelectasis in the lingular segment of the left lung is again noted. There are no ominous pulmonary nodules. There are no new confluent infiltrates. No pleural effusions. MEDIASTINUM: There is no obvious hilar nor mediastinal adenopathy. CARDIAC: Heart size is normal. There is no pericardial effusion.Coronary artery calcifications noted. Diameter of the thoracic aorta is within normal limits. OTHER: Previous cholecystectomy. OSSEOUS: No significant osseous lesions.. IMPRESSION: 1. Stable small benign-appearing nodules. No new significant lung nodules. 2. Infiltrates and pleural effusions which were evident in the lung bases on CT scan of March 2023 have resolved. There presently no new infiltrates and there are presently no pleural effusions. 3. Lung RADS Cat 1 - Negative: No nodules and definitely benign nodules Lung-RADS 1.0 CATEGORIES: Category 0 - Prior chest CT exam(s) being located for comparison. Category 1 - Annual screening in 12 months. No nodules or definitely benign nodules. Category 2 - Annual screening in 12 months. Benign appearance. Nodules with low likelihood of becoming active cancer. Category 3 - 6-month follow-up. Probably benign. Short-term follow-up suggested. Nodules with low likelihood of becoming active cancer. Category 4A - 3-month follow-up and CT/PET if >8 mm in size. Suspicious finding. Findings which require additional testing. Category 4B - Findings which require additional testing and tissue sampling. Category 4X - Category 3 or 4 nodules with additional features or imaging findings that increases the suspicion of malignancy. Modifier S- Potentially clinically significant findings (non lung cancer) RADIATION DOSE DELIVERED: 98.28mGy.cm Total DLP DATA REPOSITORY: All CT scans at this facility are submitted to the National Radiology Data Registry (NRDR) Dose Index Registry (DIR) with the [employer] ([employer]). RADIATION OPTIMIZATION: All CT scans at this facility use at least one of these dose optimization techniques: automated exposure control; mA and/or kV adjustment per patient size (includes targeted exams where dose is matched to clinical indication); or iterative reconstruction.
== END 2025-03-10 00:42 ==
LOC: DI 00:22
PROVIDERS: PCP Family Medicine; Visit Provider Family Medicine
DX: Z12.2 Encounter for screening for malignant neoplasm of respiratory organs (principal); F17.210 Nicotine dependence, cigarettes, uncomplicated; R91.8 Other nonspecific abnormal finding of lung field
CPT/HCPCS: 71271

== ENCOUNTER 2025-03-15 08:18 | Outpatient (CLI) | payer MEDICARE, SELFPAY ==
--- NOTE | 2025-03-15 08:00 | DI.RAD_ITS ---
Exam(s) XR SHOULDER LT COMPLETE 2+V EXAM: XR SHOULDER LT COMPLETE 2+V CLINICAL HISTORY: LEFT SHOULDER PAIN. TECHNIQUE: 2D digital imaging was performed of the left shoulder. Two images were obtained. Axillary and Grashey views were obtained. COMPARISON: CR XR SHOULDER LT COMPLETE 2+V from 11/12/2020 FINDINGS: BONES: No acute fracture is present. No bony destructive lesion is seen. JOINTS: No dislocation present. There is narrowing of the acromial humeral interval. There is a spur at the lateral aspect of the acromion. There is narrowing of the glenohumeral joint. SOFT TISSUE: Normal. IMPRESSION: Mild degenerative changes around the shoulder. DATA REPOSITORY: RADIATION DOSE DELIVERED:
== END 2025-03-15 08:19 | disposition home or self-care (01) ==
LOC: DIORS 08:18
PROVIDERS: PCP Family Medicine; Referring Provider Family Medicine; Visit Provider Student in an Organized Health Care Education/Training Program
DX: M19.012 Primary osteoarthritis, left shoulder (principal); E11.69 Type 2 diabetes mellitus with other specified complication; I10 Essential (primary) hypertension
CPT/HCPCS: 99214; 73030

== ENCOUNTER 2025-04-03 11:00 | Outpatient (RCR) | payer MEDICARE, SELFPAY ==
--- NOTE | 2025-04-03 11:00 | RT.EKG_ITS ---
APPROVED REPORT Exam: Resting ECG Reason for Exam: CR Intake - Baseline EKG Patient Location: O HR:75 bpm ECG Measurements Heart Rate 75 AXIS MO 144 P 0 QRSd 85 QRS 27 QT 361 T 47 QTc 404 Conclusion Sinus rhythm...normal P axis, V-rate 50- 99 Normal Electrocardiogram
== END 2025-04-23 23:59 | disposition home or self-care (01) ==
LOC: CR 11:00
PROVIDERS: PCP Family Medicine; Visit Provider Internal Medicine Cardiovascular Disease
DX: I25.810 Atherosclerosis of coronary artery bypass graft(s) without angina pectoris (principal); Z95.5 Presence of coronary angioplasty implant and graft
CPT/HCPCS: S9472

== ENCOUNTER 2025-04-14 10:00 | Outpatient (RCR) | payer MEDICARE, SELFPAY | END 2025-04-23 23:59 | disposition home or self-care (01) | LOC: CR 10:00 | PROVIDERS: PCP Family Medicine; Visit Provider Internal Medicine Cardiovascular Disease | DX: I25.10 Atherosclerotic heart disease of native coronary artery without angina pectoris (principal); Z95.5 Presence of coronary angioplasty implant and graft | CPT/HCPCS: S9472 ==

== ENCOUNTER 2025-04-26 09:50 | Outpatient (RCR) | payer MEDICARE, SELFPAY | END 2025-05-23 23:59 | disposition home or self-care (01) | LOC: CR 09:50 | PROVIDERS: PCP Family Medicine; Visit Provider Internal Medicine Cardiovascular Disease | DX: I25.810 Atherosclerosis of coronary artery bypass graft(s) without angina pectoris (principal); Z95.5 Presence of coronary angioplasty implant and graft; Z51.89 Encounter for other specified aftercare | CPT/HCPCS: S9472 ==

== ENCOUNTER 2025-05-18 17:00 | Outpatient (REF) | payer MEDICARE, SELFPAY ==
[2025-05-18 19:12] LABS: ALT 19 U/L (16-63); AST 13 U/L (15-37); Albumin 4.2 g/dL (3.4-5.0); Alkaline Phosphatase 65 U/L (46-116); Anion Gap 15.8 mmol/L (3-11); BUN 13 mg/dL (7-18); Bilirubin, Total 0.3 mg/dL (0.2-1.0); CO2 20.2 mmol/L (21.0-32.0); Calcium 9.7 mg/dL (8.5-10.1); Chloride 106 mmol/L (98-107); Estimated GFR 99.62 (mL/min/1.73m2); Glucose 173 mg/dL (74-106); Magnesium 1.4 mg/dL (1.8-2.4); Potassium 3.8 mmol/L (3.5-5.1); Sodium 142 mmol/L (136-145); Total Protein 7.6 g/dL (6.4-8.2)
== END 2025-05-18 17:01 | disposition home or self-care (01) ==
LOC: NCHCN 17:00
PROVIDERS: PCP Family Medicine; Visit Provider Family Medicine
DX: R25.2 Cramp and spasm (principal)
CPT/HCPCS: 80053; 83735

== ENCOUNTER 2025-05-19 13:37 | Emergency (ER) | payer MEDICARE, SELFPAY ==
[2025-05-19] VITALS (71 sets, daily range): BP systolic 101–143; BP diastolic 57–85; PULSE 84–127; RESP 10–25; TEMP 36.9; O2SAT 94–100
--- NOTE | 2025-05-19 13:30 | RT.EKG_ITS ---
APPROVED REPORT Exam: Resting ECG Reason for Exam: chest pain Patient Location: E HR:124 bpm ECG Measurements Heart Rate 124 AXIS WI 168 P 52 QRSd 78 QRS 27 QT 261 T 233 QTc 375 Conclusion Sinus tachycardia, rate 124 No interval abnormalities No STEMI Diffuse ST depressions and T wave inversions, new from priors
--- NOTE | 2025-05-19 14:02 | W.ED.GENAD ---
Discharge Plan Disposition Patient Disposition: Transfer-Acute Inpatient Care Specific Acute Inpt Facility: [facility] Condition: Improving Discharge Details Clinical Impression: Unstable angina, CAD (coronary artery disease), Diverticulitis Primary Care Provider: Coni Lim V ED Provider: Edel Ye Home Meds and New Rx's Prescriptions: No Action ranolazine 500 mg tablet extended release 12 hr 500 mg PO BID Qty: 60 3RF losartan 25 mg Tablet 12.5 mg PO DAILY duloxetine [Cymbalta] 60 mg Capsule,Delayed Release(Dr/Ec) 60 mg PO BID hydroxyzine pamoate 50 mg capsule 25 mg PO Q4H PRN Qty: 90 Patient Comments: 08/01/15 not recently Rx Instructions: prn headache aspirin [Adult Aspirin Regimen] 81 mg tablet,delayed release (DR/EC) 81 mg PO DAILY sucralfate [Carafate] 1 gram tablet 1 gm PO QACHS colchicine 0.6 mg tablet 0.6 mg PO BID PRN (Reason: gout flare) Patient Comments: 08/01/15 not using docusate sodium [Colace] 100 mg capsule 100 mg PO BID PRN polyethylene glycol 3350 [Miralax] 17 gram/dose powder 17 gm PO DAILY PRN glucagon 3 mg/actuation spray,non-aerosol 3 mg intranasal ONCE Rx Instructions: as a single dose budesonide-formoterol 80-4.5 mcg/actuation HFA aerosol inhaler 1 inh inhalation BID famotidine 20 mg tablet 20 mg PO DAILY gabapentin 800 mg tablet 800 mg PO BID insulin lispro 100 unit/mL insulin pen 1 sliding scale dose subcut USEASDIRECTD lactulose 10 gram/15 mL solution 20 g PO BID omega-3 acid ethyl esters [Lovaza] 1 gram capsule 4 cap PO DAILY nitroglycerin [Nitrostat] 0.4 MG tablet, sublingual 0.4 mg Sublingual PRN PRN cyclobenzaprine 10 MG tablet 10 mg PO HS PRN pantoprazole 40 MG tablet,delayed release (DR/EC) 40 mg PO BID metformin 1,000 mg tablet extended release 24hr 1,000 mg PO BID Qty: 60 0RF acetaminophen 500 mg Tablet 1,000 mg PO Q8H Qty: 30 0RF albuterol sulfate [Ventolin HFA] 90 mcg/actuation Hfa Aerosol Inhaler 2 puff inhalation Q4H PRN PRN (Reason: Wheezing) Qty: 6.7 0RF gemfibrozil 600 mg Tablet 600 mg PO BID Qty: 20 0RF Rx Instructions: Please, discuss with PCP during f/u metoprolol succinate 100 mg Tablet Extended Release 24 Hr 200 mg PO DAILY Qty: 10 0RF pramipexole 0.5 mg Tablet 1 mg PO HS Qty: 20 0RF pramipexole 0.5 mg Tablet 0.5 mg PO DAILY Qty: 10 0RF rosuvastatin 10 mg Tablet 20 mg PO HS Qty: 10 0RF topiramate 25 mg tablet See Rx Instructions PO BID Qty: 30 0RF Rx Instructions: 25mg AM and 50mg PM orally twice a day; 25 mg in AM, 50 mg PM. triamcinolone acetonide 0.1 % cream 1 applic TOPICAL BID bupropion HCl 300 mg tablet extended release 24 hr 300 mg PO QAM isosorbide mononitrate 30 mg tablet extended release 24 hr 60 mg PO DAILY Patient Comments: TAKE ONE TABLET BY MOUTH EVERY MORNING ondansetron 4 mg tablet,disintegrating 4 mg PO Q8H PRN (Reason: nausea and vomiting) Qty: 30 0RF insulin glargine [Lantus Solostar U-100 Insulin] 100 unit/mL (3 mL) insulin pen 30 unit subcut HS HPI General Mode of arrival: ambulatory. Date/Time Provider Initiated Documentation: 05/19/25 13:40. Limitations to Documentation: no limitations. Information obtained by: patient and old records reviewed. HPI Narrative: This is a 59-year-old male patient with a past medical history significant for CAD, status post new proximal LAD stent in March of this year, history of diabetes, hypertension, hyperlipidemia, and stroke, presenting for evaluation of pain in the center and right side of his chest that has been occurring intermittently for the last 3 weeks. The patient was seen at his primary care clinic, where he endorsed new onset of the symptoms approximately 10 days after his stent was placed. He had an event where he was attempting to prevent a heavy (1000 pounds) tool box from falling, and his significant lifting caused symptoms to recur that felt exactly like he had felt before his stent was placed. Additionally, he endorsed to his primary care provider that he has had several weeks of nausea with vomiting and poor appetite, as well as rust colored diarrhea. He states that he developed right sided upper quadrant abdominal tenderness during his PCP visit today. He has had worsening of his chest pain with deep breath, it radiates to his jaw. States that he has been getting this pain daily since the toolbox event. Has not taken any nitro today, did take his morning aspirin 81 mg. Denies back pain, dysuria or hematuria, has not had any leg swelling or unilateral calf tenderness. Related Data Home Medications ?Medication ?Instructions ?Recorded ?Confirmed cyclobenzaprine 10 mg tablet 10 mg PO HS PRN 12/31/12 05/19/25 nitroglycerin 0.4 mg sublingual 0.4 mg sublingual PRN PRN 12/31/12 05/19/25 tablet (Nitrostat) pantoprazole 40 mg tablet,delayed 40 mg PO BID 02/14/14 05/19/25 release aspirin 81 mg tablet,delayed 81 mg PO DAILY 12/26/19 05/19/25 release (Adult Aspirin Regimen) hydroxyzine pamoate 50 mg capsule 25 mg PO Q4H PRN #90 tab-caps 12/26/19 05/19/25 sucralfate 1 gram tablet (Carafate) 1 gm PO QACHS 12/26/19 05/19/25 colchicine 0.6 mg tablet 0.6 mg PO BID PRN gout flare 11/23/20 05/19/25 docusate sodium 100 mg capsule 100 mg PO BID PRN 11/23/20 05/19/25 (Colace) polyethylene glycol 3350 17 17 gm PO DAILY PRN 11/23/20 05/19/25 gram/dose oral powder (Miralax) ranolazine 500 mg tablet,extended 500 mg PO BID #60 tabs 11/23/20 05/19/25 release,12 hr duloxetine 60 mg capsule,delayed 60 mg PO BID 12/24/20 05/19/25 release (Cymbalta) losartan 25 mg tablet 12.5 mg PO DAILY 12/24/20 05/19/25 metformin 1,000 mg tablet,extended 1,000 mg PO BID #60 tabs 10/24/21 05/19/25 release 24hr (osmotic) budesonide-formoterol HFA 80 1 inh inhalation BID 06/04/23 05/19/25 mcg-4.5 mcg/actuation aerosol inhaler glucagon 3 mg/actuation nasal spray 3 mg intranasal ONCE 06/04/23 05/19/25 acetaminophen 500 mg tablet 1,000 mg (2 x 500 mg) PO Q8H #30 05/03/24 05/19/25 tabs albuterol sulfate 90 mcg/actuation 2 puff inhalation Q4H PRN PRN 05/03/24 05/19/25 aerosol inhaler (Ventolin HFA) Wheezing #6.7 grams gemfibrozil 600 mg tablet 600 mg PO BID #20 tabs 05/03/24 05/19/25 metoprolol succinate 100 mg 200 mg (2 x 100 mg) PO DAILY #10 05/03/24 05/19/25 tablet,extended release 24 hr tabs pramipexole 0.5 mg tablet 0.5 mg PO DAILY #10 tabs 05/03/24 05/19/25 pramipexole 0.5 mg tablet 1 mg (2 x 0.5 mg) PO HS #20 tabs 05/03/24 05/19/25 rosuvastatin 10 mg tablet 20 mg (2 x 10 mg) PO HS #10 tabs 05/03/24 05/19/25 topiramate 25 mg tablet See Rx Instructions PO BID #30 tabs 05/03/24 05/19/25 bupropion HCl 300 mg 24 hr tablet, 300 mg PO QAM 05/17/24 05/19/25 extended release isosorbide mononitrate 30 mg 60 mg PO DAILY 05/17/24 05/19/25 tablet,extended release 24 hr ondansetron 4 mg disintegrating 4 mg PO Q8H PRN nausea and 05/17/24 05/19/25 tablet vomiting #30 tabs triamcinolone acetonide 0.1 % 1 applic topical BID 05/17/24 05/19/25 topical cream famotidine 20 mg tablet 20 mg PO DAILY 02/28/25 05/19/25 gabapentin 800 mg tablet 800 mg PO BID 02/28/25 05/19/25 insulin lispro 100 unit/mL 1 sliding scale dose subcut 02/28/25 05/19/25 subcutaneous pen USEASDIRECTD lactulose 10 gram/15 mL oral 20 g PO BID 02/28/25 05/19/25 solution omega-3 acid ethyl esters 1 gram 4 cap PO DAILY 02/28/25 05/19/25 capsule (Lovaza) insulin glargine 100 unit/mL (3 30 unit subcut HS 03/01/25 05/19/25 mL) subcutaneous pen (Lantus Solostar U-100 Insulin) Previous Rx's ?Medication ?Instructions ?Recorded ranolazine 500 mg tablet,extended 500 mg PO BID #60 tabs 11/23/20 release,12 hr metformin 1,000 mg tablet,extended 1,000 mg PO BID #60 tabs 10/24/21 release 24hr (osmotic) acetaminophen 500 mg tablet 1,000 mg (2 x 500 mg) PO Q8H #30 05/03/24 tabs albuterol sulfate 90 mcg/actuation 2 puff inhalation Q4H PRN PRN 05/03/24 aerosol inhaler (Ventolin HFA) Wheezing #6.7 grams gemfibrozil 600 mg tablet 600 mg PO BID #20 tabs 05/03/24 metoprolol succinate 100 mg 200 mg (2 x 100 mg) PO DAILY #10 05/03/24 tablet,extended release 24 hr tabs pramipexole 0.5 mg tablet 0.5 mg PO DAILY #10 tabs 05/03/24 pramipexole 0.5 mg tablet 1 mg (2 x 0.5 mg) PO HS #20 tabs 05/03/24 rosuvastatin 10 mg tablet 20 mg (2 x 10 mg) PO HS #10 tabs 05/03/24 topiramate 25 mg tablet See Rx Instructions PO BID #30 tabs 05/03/24 ondansetron 4 mg disintegrating 4 mg PO Q8H PRN nausea and 05/17/24 tablet vomiting #30 tabs Allergies Allergy/AdvReac Type Severity Reaction Status Date / Time thallium-201 (Thallium-201) Allergy Severe Pt went to Verified 05/19/25 14:00 [facility] [place] ciprofloxacin Allergy Intermediate Unknown Verified 05/19/25 14:00 lisinopril AdvReac cough Verified 05/19/25 14:00 Paper tape Allergy Intermediate rash Uncoded 05/19/25 14:00 General Stated Complaint: Chest Pain NANCY: 3 Exam Narrative Exam Narrative: Gen: Awake and alert, appears unwell HEENT: Non-icteric sclera, no conjunctival pallor, PERRL Neck: Supple Lungs: No apparent respiratory distress, normal respiratory effort. Lung sounds clear and equal bilaterally, deep breaths reproduces the chest pain CV: Appears well perfused, heart with tachycardic rate but regular rhythm, strong and symmetrical bilateral pulses, no murmurs auscultated Abdomen: Non-distended, soft, tender to palpation in the right upper quadrant without rigidity, rebound, though the patient does guard MSK: Moves 4 extremities without apparent limitation in ROM. No peripheral edema, no unilateral calf swelling or tenderness Skin: Visualized skin without rashes, cyanosis. Neuro: Normal Gait, no obvious focal deficits or facial asymmetry. Speaks in full, clear sentences. Psych: Appropriate for situation. Course Vital Signs Vital signs: Vital Signs Temperature 36.9 C 05/19/25 13:53 Pulse 127 H 05/19/25 13:53 Respiratory Rate 22 05/19/25 13:53 Blood Pressure 135/84 05/19/25 13:53 Pulse Oximetry 96 05/19/25 13:53 Temperature 36.9 C 05/19/25 13:53 Pulse 127 H 05/19/25 13:53 Respiratory Rate 22 05/19/25 13:53 Blood Pressure 135/84 05/19/25 13:53 Pulse Oximetry 96 05/19/25 13:53 Pain Level 7 05/19/25 13:53 Medical Decision Making This is a 59-year-old male patient with a strong cardiovascular history, presenting for evaluation of daily chest pain reproducible with deep breath, associated with sweating, nausea/vomiting/diarrhea, and new right upper quadrant abdominal pain. Of note, the patient recently had a proximal LAD stent placed, and had a traumatic event that reproduced his prior anginal symptoms 10 days after the stent was placed. My differential includes but is not limited to ACS including STEMI, NSTEMI, unstable angina, certainly considered arrhythmia, pericarditis/myocarditis, aortic pathology. Considered pulmonary abnormalities including pneumonia, bronchitis, pleural effusion, pulmonary edema, reactive airway disease, pneumothorax, pulmonary embolism. The prominent GI symptoms do raise my suspicion for etiology such as peptic ulcer disease, pancreatitis, cholecystitis, hepatitis. Considered musculoskeletal pathologies including costochondritis, chest wall pain. Given the red stool I certainly considered GI bleeding, anemia, and the patient's difficulty maintaining oral intake due to his nausea may be suggestive of dehydration, kidney injury. Obtained an EKG, which shows a sinus tachycardia with diffuse T wave inversions and ST depressions, does not meet STEMI criteria but is concerning for ischemic changes. The patient will be provided with a make up dose of aspirin, and nitroglycerin. I will provide the patient with a liter of IV fluids given his tachycardia (recent echo with an EF of 57%), and obtain labs to include CBC, CMP, magnesium, troponin, BNP, PT/PTT, and will obtain imaging to include CT pulmonary embolism study and CT abdomen pelvis with contrast. The patient had normal kidney function [place] [facility] [place] a creatinine of 0.9 within the last month. - I independently interpreted the laboratory studies, which show no significant leukocytosis, severe or worsening anemia, or thrombocytopenia. In fact, the patient's hemoglobin today is 13.3, up from 12 on most recent check at [facility], which is very reassuring against large GI bleed. The chemistry panel is without evidence of kidney dysfunction, or liver injury. He does have evidence of a low potassium to 3.2 and magnesium at 1.3, both of which will be repleted. Initial troponin is negative and there is no significant increase on 1 and 3-hour rechecks. BNP is low and lipase is negative. The patient had ongoing chest pain requiring repeat doses of nitroglycerin. CT scans reviewed by myself, and I reviewed the radiology reports. He has no evidence of pulmonary embolism, obvious aortic pathology, but his CT abdomen pelvis does demonstrate uncomplicated diverticulitis of the ascending colon. For this he will be provided with ceftriaxone and Flagyl. The ongoing chest pain at rest is quite concerning for unstable angina, especially given the similarity in symptoms to his prior angina requiring stenting. The patient has already had restenosis of prior stents in the past. I reached out to cardiology, and they have graciously accepted this patient for transfer for urgent catheterization. He was started on heparin and if his chest pain worsens he will be started on a nitroglycerin drip. Accepting service captain Dr. Mckeon [place] [facility] will be arranged. While under my care in the emergency department the patient remained hemodynamically appropriate. He was transported by EMS from this department without incident. Edel Ye MD [facility] All Active Problems (Updated 05/19/25 @ 18:07 by Edel Ye MD) Diverticulitis (Chronic) Unstable angina (Acute) Osteoarthritis of left shoulder (Acute) Neuropathy (Acute) Syncope (Chronic) History of PSVT (paroxysmal supraventricular tachycardia) (Acute) Hyperammonemia (Acute) Hyperglycemia (Acute) Thyroid nodule (Acute) Hyperplastic colon polyp (Acute) Tubular adenoma of colon (Acute) CAD (coronary artery disease) (Chronic) a. [place] [facility] [place] b. Restenosis of LAD and two more stents to LAD at [facility] 01/2014 c. 50% proximal RCA lesion d. Recurrent angina on Ranolazine e. 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) Migraine headache with aura (03/21/15) Medication overuse headache (03/21/15) Knee pain Diabetes mellitus Ketoacidosis due to secondary diabetes mellitus Low back pain Asthma COPD (chronic obstructive pulmonary disease) Abscess of right groin Dental infection Discharge planning issues Hypomagnesemia Ileitis Hematuria Smoker Myocardial infarction, inferior wall 2012 Hemiplegic migraine With intractable migraine, so stated, without mention of status migrainosus Postural lightheadedness Gastropathy Duodenitis Left cervical radiculopathy Gastroparesis diabeticorum RLS (restless legs syndrome) Tachycardia, paroxysmal Myalgia Leg pain, right Family history of colon cancer Reaction, situational Headache Acute diarrhea Abdominal pain Hypotensive episode Diverticulitis Peripheral neuropathy Palpitations Chronic pain Knee pain, left Hip pain, right Cervicalgia Shoulder pain, left Depression H/O: gout GERD (gastroesophageal reflux disease) Fibromyalgia Thyroid nodule Cholelithiasis a. cholecystectomy Surgical History Hx of discectomy History of arthroscopic surgery of shoulder Hx of tonsillectomy History of cholecystectomy History of knee surgery History of colonoscopy (~09/2021) History of coronary artery stent placement H/O surgical procedure a. cath and stents b. cholecystectomy c. back surgery Family History Other Cancer Colon cancer Social History Smoking/Tobacco Use Status: Current every day Tobacco Type: cigarettes Smoking risk assessment performed?: Yes Alcohol Intake: former Drug use: Daily Substance use type: marijuana Details: 2-3 joints/day Household members: spouse Housing: house Number of Children: 2 current occupation: Disabled Current gender identity: male What type of physical activity do you participate in: walking, independent ambulation and additional Details: work at home (outside work) Do you feel safe at home: Yes Do you feel safe in your relationship?: Yes
--- NOTE | 2025-05-19 14:13 | DI.CT_ITS ---
Exam(s) CT CHEST PE ABD PELVIS W EXAM: CT CHEST PE ABD PELVIS W CLINICAL HISTORY: RUQ pain, CP worse with deep breath. TECHNIQUE: Imaging Protocol: Axial CT angiography was performed with multi- slice acquisition and multi-planar and/or 3D reconstructions. Computer aided detection (CAD) was utilized. CONTRAST MATERIAL: Intravenous: Omnipaque 350contrast volume:100 mL COMPARISON: CT CT THORAX ABD/PEL CTA from 05/17/[address] CHEST LUNG CANCER SCREEN from 03/10/2025 FINDINGS: CHEST: Tracheobronchial tree: Patent where visualized. No evidence of bronchiectasis. Pulmonary parenchyma: No consolidation or dominant measurable mass. No architectural distortion. There is a stable right middle lobe pulmonary nodule. There are no new pulmonary nodules. Pulmonary Arteries: No evidence of filling defect to suggest pulmonary emboli. Mediastinum and Nena: No dominant adenopathy or fluid collection. The esophagus is unremarkable. Visualized thyroid gland: Unremarkable. Pleura: No effusion or pneumothorax. Heart: The heart is not dilated. Three vessel coronary artery calcification is present. No pericardial effusion. Aorta: Thoracic aorta non-dilated. No evidence of dissection. Bones: Within normal limits for the patient's age. Soft tissues: Unremarkable. ABDOMEN: Liver: Normal density. No measurable mass. Portal, Superior Mesenteric, and Splenic Veins: Unremarkable. Gallbladder and Biliary Tract: Status post cholecystectomy. There is no significant biliary ductal dilatation. Pancreas: Normal density, no abnormal calcifications or inflammatory process. Spleen: Normal. Adrenals: No masses seen. Kidneys: Normal size, contour and axis. There is no evidence of obstructive uropathy. There are bilateral simple renal cysts. No follow-up is recommended. Abdominal Aorta: Abdominal portion non-dilated. Atherosclerotic calcification is present. Bowel: There is no evidence of bowel obstruction. There is a diverticulum in the duodenum adjacent to the head of the pancreas. There is diverticulosis of the colon. There is inflammation seen in the ascending colon with inflammatory changes in the adjacent soft tissues. There are diverticula in this region including what appears to be an inflamed diverticulum. The findings are suspicious for an acute diverticulitis. There is a normal appendix present. Peritoneal Cavity: No ascites, collection or mesenteric inflammatory response. No free air. Lymph Nodes: Within normal limits. Bones: Within normal limits for the patient's age. There is a left convex lumbar scoliosis. Soft Tissues: Unremarkable. PELVIS: Bladder: The urinary bladder is incompletely distended limiting evaluation. No gross abnormality is identified. Reproductive Organs: Unremarkable as visualized. Lymph Nodes: Within normal limits. Bones: Within normal limits. IMPRESSION: 1. Inflamed diverticulum in the mid ascending colon consistent with acute diverticulitis. There is no abscess or free air. 2. There is no evidence of a pulmonary embolism, thoracic aortic dissection or aneurysm. 3. Stable right middle lobe pulmonary nodule. 4. No acute pulmonary process. RADIATION DOSE DELIVERED: 923.84mGy.cm Total DLP DATA REPOSITORY: All CT scans at this facility are submitted to the National Radiology Data Registry (NRDR) Dose Index Registry (DIR) with the [employer] (ACR). RADIATION OPTIMIZATION: All CT scans at this facility use at least one of these dose optimization techniques: automated exposure control; mA and/or kV adjustment per patient size (includes targeted exams where dose is matched to clinical indication); or iterative reconstruction.
[2025-05-19 14:30] LABS: Abs Immature Grans 0.05 10^3/uL (0.0-0.06); HCT 38.5 % (40.0-50.0); HGB 13.3 g/dL (13.5-17.5); Immature Grans % 0.5 %; MCH 28.9 pg (27.0-33.0); MCHC 34.5 % (32.0-36.0); MCV 84 fL (80-95); MPV 10.6 fL (8.0-11.0); Platelet Count 239 10^3/uL (130-400); RBC 4.60 10^6/uL (4.36-5.78); RDW 14.5 % (11.8-14.1); RDW-SD 44.2 fL; WBC 10.20 10^3/uL (4.4-10.8)
[2025-05-19] MEDS: Aspirin 81 MG CHEW (14:32)
[2025-05-19] MEDS: nitroGLYcerin 0.4 MG TAB (14:32)
[2025-05-19] MEDS: Ondansetron 4 MG/2 ML VIAL IVP (14:40)
[2025-05-19] MEDS: Lactated Ringers 1,000 ML 1000 ML IV (14:41)
[2025-05-19] MEDS: Omnipaque 350 MG/ML 100 ML BTL IJ (14:42)
[2025-05-19] MEDS: Normal Saline Flush 10 ML SYR IVP (14:43)
[2025-05-19] MEDS: Normal Saline - Diluent 50 ML VIAL IJ (14:43)
[2025-05-19] MEDS: nitroGLYcerin 0.4 MG TAB SL ×2 (14:50→21:04)
[2025-05-19 14:51] LABS: ALT 16 U/L (16-63); AST 12 U/L (15-37); Albumin 3.9 g/dL (3.4-5.0); Alkaline Phosphatase 68 U/L (46-116); Anion Gap 14.8 mmol/L (3-11); BUN 11 mg/dL (7-18); Bilirubin, Total 0.4 mg/dL (0.2-1.0); CO2 21.2 mmol/L (21.0-32.0); Calcium 9.4 mg/dL (8.5-10.1); Chloride 106 mmol/L (98-107); Estimated GFR 99.62 (mL/min/1.73m2); Glucose 293 mg/dL (74-106); Lipase 26 U/L (<78); Magnesium 1.3 mg/dL (1.8-2.4); NT-proBNP 78 pg/mL (<300); Potassium 3.2 mmol/L (3.5-5.1); Sodium 142 mmol/L (136-145); Total Protein 7.8 g/dL (6.4-8.2); Troponin I 4 ng/L (<or=76)
[2025-05-19 14:53] LABS: INR 1.2 (0.9-1.1); PTT Activated 24.2 sec (20.6-30.2); Prothrombin Time 11.7 sec (9.1-11.1)
[2025-05-19] MEDS: MORPHine 4 MG/ML SYR IVP (15:33)
[2025-05-19] MEDS: Potassium Chloride 20 MEQ TABCR 40 MEQ PO (15:34)
[2025-05-19] MEDS: MAGNESIUM SULFATE 2 GM/50 ML BAG IV_INF (15:41)
[2025-05-19 16:01] LABS: Troponin I 7 ng/L (<or=76)
[2025-05-19] MEDS: metroNIDAZOLE 500 MG/100 ML BAG 100 MG IVPB (16:09)
[2025-05-19] MEDS: cefTRIAXone 1 GM/50 ML BAG IVPB (16:11)
[2025-05-19 17:46] LABS: Troponin I 7 ng/L (<or=76)
== END 2025-05-19 21:00 | disposition short-term general hospital (02) ==
PROVIDERS: Emergency Provider Emergency Medicine; PCP Family Medicine
DX: I20.0 Unstable angina (principal); K57.92 Diverticulitis of intestine, part unspecified, without perforation or abscess without bleeding; R11.2 Nausea with vomiting, unspecified; R19.7 Diarrhea, unspecified; Z86.79 Personal history of other diseases of the circulatory system
CPT/HCPCS: 36415; 36416; 71275; 74177; 80053; 82962; 83690; 93005; 96361; 96365; 96367; 96375; 99285; 83735; 83880; 84484; 85025; 85610; 85730; 93010; J0696; J1836; J2270; J2405; J3475; J3490

== ENCOUNTER → 2025-06-05 09:59 | Outpatient (BNVA) | payer MEDICARE, SELFPAY | PROVIDERS: PCP Family Medicine; Referring Provider Family Medicine; Visit Provider Registered Nurse | DX: I25.10 Atherosclerotic heart disease of native coronary artery without angina pectoris (principal) | CPT/HCPCS: 99214 ==

== ENCOUNTER 2025-06-07 10:56 | Outpatient (CLI) | payer MEDICARE, SELFPAY ==
[2025-06-07 11:25] LABS: ESR 12 mm/hr (0-20)
[2025-06-07 12:09] LABS: Ferritin 43 ng/mL (26-388)
[2025-06-07 12:15] LABS: Iron 51 ug/dL (65-175)
[2025-06-07 12:25] LABS: Creatine Kinase 51 U/L (39-308)
[2025-06-07 12:26] LABS: C-Reactive Protein < 0.50 mg/dL (<or=0.5)
== END 2025-06-07 10:57 | disposition home or self-care (01) ==
LOC: LBO 10:56
PROVIDERS: PCP Family Medicine; Visit Provider Family Medicine
DX: G62.9 Polyneuropathy, unspecified (principal); G25.81 Restless legs syndrome
CPT/HCPCS: 36415; 82550; 85652; 86039; 82728; 83540; 86140; 86431

== ENCOUNTER 2025-06-07 11:02 | Outpatient (RCR) | payer MEDICARE, SELFPAY | END 2025-06-23 23:59 | disposition home or self-care (01) | LOC: CR 11:02 | PROVIDERS: PCP Family Medicine; Visit Provider Internal Medicine Cardiovascular Disease | DX: I25.810 Atherosclerosis of coronary artery bypass graft(s) without angina pectoris (principal); Z95.5 Presence of coronary angioplasty implant and graft; Z51.89 Encounter for other specified aftercare | CPT/HCPCS: S9472 ==

== ENCOUNTER → 2025-06-26 02:15 | Outpatient (CLI) | payer MEDICARE, SELFPAY ==
--- NOTE | 2025-06-26 13:30 | DI.US_ITS ---
APPROVED REPORT EXAM: Comprehensive 2D, Doppler, and color-flow Echocardiogram Patient Location: Out-Patient Chamber Worker: Maurice Castillo RDCS (AE) Indications: Coronary artery disease Other Information Study Quality: Fair. Technically limited study due to body habitus. Conclusion Normal left ventricular wall thickness and chamber size. Ejection fraction is 55 to 60%. Wall motion is normal Normal right ventricular size and function Both atria are normal in size There is no structural or hemodynamically significant valvular disease Wall motion Left Ventricle Left ventricle is mildly dilated. The left ventricular systolic function is normal. The left ventricular ejection fraction is within the normal range. There is normal left ventricular wall thickness. There is normal LV segmental wall motion. There is no ventricular septal defect visualized. LVEF is 55-60%. Right Ventricle The right ventricle is normal size. The right ventricular systolic function is normal. Atria The left atrium size is normal. The right atrium size is normal. The interatrial septum is intact with no evidence for an atrial septal defect. Aortic Valve The aortic valve is normal in structure. Aortic valve is trileaflet. There is no aortic valvular stenosis. No aortic regurgitation is present. Mitral Valve The mitral valve is normal in structure. No evidence of mitral valve stenosis. Trace mitral regurgitation. Tricuspid Valve The tricuspid valve is normal in structure. There is no tricuspid valve stenosis. Trace tricuspid regurgitation. Pulmonic Valve The pulmonary valve is normal in structure. There is no pulmonic valvular stenosis. There is no pulmonic valvular regurgitation. Great Vessels The aortic root is normal in size. Ascending aorta is not well visualized. IVC is normal in size and collapses >50% with inspiration. Pericardium There is no pericardial effusion. 2D Dimensions IVSD d PLAX 0.68 cm M: 0.6-1.2 Ao Root d 3.16 cm M: 3.1 - 3.7 LVPW d PLAX 0.71 cm M: 0.6 - 1.2 LVID d PLAX 6.11 cm M: 4.2 - 5.8 LVDs 4.18 cm M: 2.5 - 4.0 LV EF Teichholz 58.5 % FS 31.50 % LV EDV (Teich) 187.6 mL LV ESV (Teich) 77.9 mL Stroke Vol Index (Teich) 48.97 M-Mode TAPSE 2.29 cm (M/F) >1.7 LV Volumes - Method of Disks ([facility]) Single Plane 2D LV Volumes Biplane 2D LV Volumes LV EDV A4C 44.6 mL LV EDV BP 38.86 mL M: 62 - 150 LV ESV A4C 19.9 mL LV ESV BP 16.2 mL LVEF(%) A4C 55.4 % LVEF(%) BP 58.39 % M: 52 - 72 LV EDV A2C 32.0 mL LV EDV BP Index 17.34 mL/m2 M: 34 - 74 LV ESV A2C 13.1 mL SV BP LVEF(%) A2C 59.1 % SV Index LA Volume LA Length A4C 3.7 cm LA Length A2C 4.6 cm LA Area A4C s 7.43 cm2 LA Area A2C s 11.44 cm2 LA Vol A4C A-L 12.54 mL LA Vol A2C A-L 24.33 mL LA Vol Biplane A-L 19.3 mL LA Vol/BSA A4C A-L LA Vol/BSA A2C A-L LA Vol/BSA BP A-L 8.6 mL/m2 LA Vol A4C MOD 11.6 mL LA Vol A2C MOD 23.8 mL LA Vol BP MOD 18.4 mL RA Volume RA Area A4C 6.1 cm2 RA ESV A4C (A-L) 10.4mL RA Vol/BSA A4C A-L RA Length A4C 3.0 cm RA ESV A4C (MOD) 9.6mL LV Diastology MV E' medial 0.082 (>0.07 m/s) MV E Vmax 0.54 (0.4-1.3 m/s) MV E/E' MED 6.56 (<14) MV A Vmax 0.65 (0.4-1.3 m/s) MV E' lateral 0.115 (>0.1 m/s) E/A Ratio 0.8 MV E/E' LAT 4.69 (<14) MV E' Average 0.098 m/s MV E/E'(average) 5.47 Aortic Valve AoV Vmax 1.25 m/s LVOT Vmax 0.98 m/s AoV Peak Grad 6.2 mmHg LVOT Peak Grad 3.9 mmHg AoV Area (Vmax) 2.81 cm2 LVOT VTI 0.225 m AoV VTI 0.247 m LVOT Mean Grad 2.1 mmHg AoV Mean Alfredo. 0.86 m/s LVOT SV 80.30 mL AoV Mean Grad 3.3 mmHg LVOT Diam s 2.10 cm AoV Area (VTI) 3.25 cm2 AV Regurg Peak Gr. 6.23 mmHg Velocity Ratio 0.78 Pulmonary Valve PV Vmax 0.73 (0.5-1.5 m/s) RVOT Vmax 0.77 m/s PV Peak Grad 2.2 mmHg RVOT Peak Gr. 2.4 mmHg PV Mean Alfredo 0.51 m/s RVOT VTI 0.148 m PV Mean Grad 1.2 mmHg RVOT Mean Gr. 1.4 mmHg
== END ==
LOC: DI 02:15
PROVIDERS: PCP Family Medicine; Visit Provider Registered Nurse
DX: I25.10 Atherosclerotic heart disease of native coronary artery without angina pectoris (principal)
CPT/HCPCS: 93306